=== PATIENT | female | born 1960 | race Caucasian/White ===

== ENCOUNTER 2022-10-30 08:59 | Outpatient (OUT) | payer OTHER, SELFPAY ==
--- NOTE | 2022-10-30 09:45 | PM.CN ---
Consult Note: HPI Data of Consult Patient: known to practice within the last 3 years Consult date: 10/30/22 Requesting Physician: MEGA HELLER NP Primary Care Provider: [facility] Consult Narrative Narrative: Patient was here for f/u of low back pain. MBB procedure was denied d/t not having PT previously. She has since gone to at least 6 weeks of PT without relief of pain. She would like to go ahead with dx MBB and ultimately RFA. Pain is left lumbar without radiculopathy . She was changed to zanaflex at last visit which has helped. She states she was having hallucinations from tramadol. We can switch to norco. She has had norco in the past with relief. Medication regimen assists patient with being better able to perform ADLS. No new sensorimotor or bowel or bladder issues. She is on 02 by [facility]. She also has what appear to be venous stasis ulcers to bilat shins. We discussed getting ABIs done . She will check with her PCP to get this done. cc:: CC: MEGA HELLER NP Review of Systems ROS Status of ROS 10 or more systems reviewed and unremarkable except as noted in history and below Musculoskeletal Reports: back pain Exam Constitutional Documenting provider has reviewed patient's vital signs: yes Common normals: no apparent distress, oriented x3, healthy appearing, alert and well nourished Nutritional appearance: obese Orientation/consciousness: Yes awake, Yes oriented to person, Yes oriented to place and Yes oriented to time HENAZ Common normals: normocephalic and moist oral mucous membranes Respiratory Common normals: normal respiratory effort, no retractions and no use of accessory muscles Effort & inspection: able to speak in complete sentences and symmetric chest movement Other: on 02 by [facility] Back & Pelvis Lumbar spine/lower back: normal to inspection, ROM limited, pain with ROM, paraspinal muscle tenderness and paraspinal muscle spasm Other: positive facet load left muscle strength 3/5 left, 4/5 right LE with intact sensation venous stasis ulcers to bilat shins without drainage or signs of infection Assessment and Plan Assessment and Plan (1) Muscle spasm: (2) Lumbar spondylosis: Plan dx MBB left L4/5, L5/S1 under fluoroscopy with ultimate progression to thermal RFA stop tramadol start norco narcan rx
== END 2022-10-30 09:00 | disposition home or self-care (01) ==
LOC: PM 09:00
PROVIDERS: Visit Provider Nurse Practitioner
DX: M62.838 Other muscle spasm (principal); M47.816 Spondylosis without myelopathy or radiculopathy, lumbar region
CPT/HCPCS: G0463

== ENCOUNTER 2022-12-30 07:29 | Day surgery (SDC) | payer OTHER, SELFPAY ==
[2022-12-30 07:59] VITALS: BP 168/89; PULSE 85; RESP 16; TEMP 36.3; O2SAT 99
[2022-12-30 08:04] LABS: Glucometer 60 mg/dL (74-106)
[2022-12-30 08:05] LABS: Glucometer 56 mg/dL (74-106)
[2022-12-30 09:03] VITALS: RESP 20
[2022-12-30] MEDS: BUPIVACAINE HCL 0.25% PF 25 MG/10 ML VIAL 4 ML INJ (09:05)
[2022-12-30 09:07] VITALS: PULSE 72; PULSE 74; O2SAT 96; O2SAT 97
[2022-12-30 09:10] VITALS: BP 136/66; BP 138/68
--- NOTE | 2022-12-30 09:11 | P.ON_ITS ---
Date of procedure: 12/30/22 Pre-op diagnosis: Lumbar Spondylosis Post-op diagnosis: same as pre-op Procedure: Left Lumbar 4/5, 5/S1 medial branch block Under fluoroscopic guidance Solution injected: 2millilitersMarcaine 0.25% Anesthesia :none Immediate complications none Time out process compliant After informed consent obtained from the patient placed in the Prone proposition . area was prepped and draped in a sterile fashion using Cloraprep .25 gauge spinal needle inserted over each of the above mentioned target areas . [place] were directed towards the target under fluoroscopic guidance . after encountering each of the targets , no indication of intravascular intraneuronal or intrathecal needle tip placement. Then 0 .5 to 1 Milliliter was injected at each level. [place] removed postoperatively. patient transferred to recovery in stable condition to be discharged home after meeting criteria Anesthesia: Local Surgeon: Ang Murphy Condition: stable
== END 2022-12-30 09:16 | disposition home or self-care (01) ==
PROVIDERS: Visit Provider Anesthesiology Pain Medicine
DX: M47.816 Spondylosis without myelopathy or radiculopathy, lumbar region (principal)
CPT/HCPCS: 36415; 36416; 64493; 64494; 82948

== ENCOUNTER 2023-01-21 09:48 | Outpatient (OUT) | payer OTHER, SELFPAY ==
--- NOTE | 2023-01-21 10:09 | P.CN_ITS ---
Consult Note: HPI Data of Consult Patient: known to practice within the last 3 years Requesting Physician: Rachana London NP Primary Care Provider: [facility] Consult Narrative Reason for consult: f/u Narrative: Kelsea villatoro pleasant 62 year old female presents for evaluation and management of chronic low back pain. Recently underwent Left Lumbar 4/5, 5/S1 medial branch block with 0% pain relief and functional improvement Today rating pain 7/10 in low back and radiating down left leg. Patient notices increase in pain with walking and activity. Patient does get numbness tingling and weakness in left leg. Has been evaluated by NS and deemed non surgical, following with ortho currently as well. Patient would like to discuss additional options today. PT completed without benefit. cc:: CC: Rachana London NP Review of Systems ROS Status of ROS 10 or more systems reviewed and unremarkable except as noted in history and below Musculoskeletal Reports: back pain and joint pain (left SIJ) Meds Home Medications and Allergies Home Medications Medication Instructions Recorded Confirmed Type allopurinol 300 mg tablet 300 mg PO DAILY 10/30/22 12/30/22 History amlodipine 5 mg tablet (Norvasc) 5 mg PO DAILY 10/30/22 12/30/22 History benzonatate 100 mg capsule 100 mg PO TID 10/30/22 12/30/22 History brexpiprazole 3 mg tablet (Rexulti) 3 mg PO DAILY 10/30/22 12/30/22 History budesonide-formoterol HFA 160 2 inh inhalation BID 10/30/22 12/30/22 History mcg-4.5 mcg/actuation aerosol inhaler (Symbicort) carvedilol 25 mg tablet 25 mg PO BID 10/30/22 12/30/22 History cholecalciferol (vitamin D3) 50 2,000 unit PO BID 10/30/22 12/30/22 History mcg (2,000 unit) capsule colestipol 1 gram tablet 1 g PO BID 10/30/22 12/30/22 History dicyclomine 20 mg tablet 20 mg PO QID 10/30/22 12/30/22 History doxycycline hyclate 100 mg capsule 100 mg PO DAILY 10/30/22 12/30/22 History duloxetine 60 mg capsule,delayed 60 mg PO DAILY 10/30/22 12/30/22 History release (Cymbalta) furosemide 40 mg tablet 40 mg PO DAILY 10/30/22 12/30/22 History gabapentin 300 mg capsule 300 mg PO TID 10/30/22 12/30/22 History (Neurontin) hydrocodone 5 mg-acetaminophen 325 1 tab PO TID 10/30/22 12/30/22 History mg tablet hydroxyzine HCl 10 mg tablet 10 mg PO Q8H 10/30/22 12/30/22 History insulin glargine 100 unit/mL (3 20 unit subcut DAILY 10/30/22 12/30/22 History mL) subcutaneous pen (Lantus Solostar U-100 Insulin) ipratropium 0.5 mg-albuterol 3 mg 3 ml inhalation Q6H 10/30/22 12/30/22 History (2.5 mg base)/3 mL nebulization soln ipratropium bromide 0.02 % 0.5 mg inhalation Q6H PRN 10/30/22 12/30/22 History solution for inhalation shortness of breath or wheezing levomilnacipran 120 mg capsule,24 120 mg PO DAILY 10/30/22 12/30/22 History hr,extended release (Fetzima) levothyroxine 50 mcg capsule 50 mcg PO DAILY 10/30/22 12/30/22 History magnesium oxide 500 mg tablet 500 mg PO DAILY 10/30/22 12/30/22 History mirtazapine 30 mg tablet 30 mg PO DAILY 10/30/22 12/30/22 History mirtazapine 30 mg tablet (Remeron) 30 mg PO DAILY 10/30/22 12/30/22 History montelukast 10 mg tablet 10 mg PO DAILY 10/30/22 12/30/22 History (Singulair) omeprazole 40 mg capsule,delayed 40 mg PO DAILY 10/30/22 12/30/22 History release oxybutynin chloride 10 mg 10 mg PO DAILY 10/30/22 12/30/22 History tablet,extended release 24 hr sucralfate 1 gram tablet 1 g PO TID 10/30/22 12/30/22 History theophylline 200 mg 200 mg PO DAILY 10/30/22 12/30/22 History capsule,extended release 24 hr (Nishant-24) tizanidine 4 mg capsule (Zanaflex) 4 mg PO BID PRN muscle spasticity 10/30/22 12/30/22 History hydrocodone 5 mg-acetaminophen 325 1 tab PO TID PRN pain #90 tabs 12/03/22 12/30/22 Rx mg tablet Allergies Allergy/AdvReac Type Severity Reaction Status Date / Time honey Allergy Severe Anaphylaxis Verified 12/30/22 08:12 codeine Allergy Mild itching Verified 12/30/22 08:12 morphine AdvReac Vomiting Verified 12/30/22 08:12 Exam Constitutional Documenting provider has reviewed patient's vital signs: yes Common normals: no apparent distress, oriented x3, healthy appearing, alert and well nourished General appearance: cooperative Nutritional appearance: obese HENMT Common normals: normocephalic, hearing grossly normal bilaterally and moist oral mucous membranes Head and scalp: normocephalic Eye Common normals: PERRL Pupil: PERRL Neck & C-Spine Common normals: full ROM General: normal visual inspection Chest Common normals: inspection of chest normal Respiratory Common normals: normal respiratory effort, no retractions and no use of accessory muscles Other: chronic O2 Back & Pelvis Lumbar spine/lower back: ROM limited, pain with ROM and straight leg raise positive left Sacroiliac joints: SI joint(s) abnormal (left SIJ tender over PSIS, positive gabi, thigh thrust and gaenslens. ) Other: intermittent numbness tingling and weakness to left leg chronic low back pain pain radiates down anterior and posterior thigh into calf and down to foot positive facet loading bilaterally Extremity Common normals: normal to inspection Neuro Common normals: oriented x3, CN's II-XII intact bilaterally, moves all extremities, no focal motor deficits, no sensory deficits noted and deep tendon reflexes 2+ bilaterally Sensorium/orientation: alert Gait (neuro): antalgic and assistive device used walker Motor exam: no movement abnormalities noted and strength abnormal (4/5 in BLE) Psych Common normals: mental status grossly normal, thought process normal, cooperative, affect normal, speech normal and activity/motor behavior normal Speech: normal speech Thought process: normal thought process Results Additional Findings Additional findings: I have checked an [place]AR[place] report on this patient today and there are no aber rancies noted in the prescribing history.?? A drug screen was completed and reviewed within the last year, and if there has not been a drug screen completed we ordered one today to monitor higher risk, state monitored pain medication use. As part of providing excellent, safe, comprehensive care, the following was completed at our patient's visit: 1. A medication reconciliation and review to ensure accurate knowledge of current/active medications, including asking our patients to inform us about any [id number] medications or herbal remedies/nutritional supplements/alternative remedies. 2. A review to specifically ensure our patients have had annual screening for: elevated body mass index (BMI), tobacco use, screening for depression, and screening for unhealthy alcohol use. When screening is concerning, patients are provided with education and the specific recommendation to discuss the concerning health issue and treatment options with their primary care provider. The patient has had over 3 months of moderate to severe low back pain with functional impairment and inadequate response to conservative care including NSAIDS (unless there are contraindication such as concurrent blood thinners), multiple oral or topical pain medications, and home exercise program/physical therapy.? Patient has completed >6 weeks of guided home exercise program and/or formal physical therapy program without relief of their symptoms.? We discussed the risks and benefits of the procedure with the patient, and we are NOT planning on using sedation as outlined in the guidelines from Medicare unless there is a documented reason that sedation would be strongly recommended.?? Assessment and Plan Assessment and Plan (1) Lumbar stenosis: (2) Lumbar radiculopathy: (3) Muscle spasm: (4) Chronic left sacroiliac pain: Plan MRI reviewed plan for L 3-4 ANNE under fluoroscopy for radiculopathy and lumbar stenosis increase gabapentin to 1200mg total daily dose for two weeks, if needs to further increase and not having side effects can increase to 1500mg total daily dose. call if side effects or questions and when a refill is needed continue other medications f/u after injection
== END 2023-01-21 09:49 | disposition home or self-care (01) ==
LOC: PM 09:49
PROVIDERS: Visit Provider Nurse Practitioner
DX: M48.061 Spinal stenosis, lumbar region without neurogenic claudication (principal); M62.838 Other muscle spasm; M53.3 Sacrococcygeal disorders, not elsewhere classified; M54.16 Radiculopathy, lumbar region
CPT/HCPCS: G0463

== ENCOUNTER 2023-02-17 08:54 | Day surgery (SDC) | payer OTHER, SELFPAY ==
[2023-02-17 09:18] LABS: Glucometer 76 mg/dL (74-106)
[2023-02-17 09:27] VITALS: BP 128/76; PULSE 78; RESP 14; TEMP 36.3; O2SAT 99
[2023-02-17 10:05] VITALS: BP 134/76; PULSE 76; RESP 20; O2SAT 94
[2023-02-17] MEDS: 0.9 % SODIUM CHLORIDE 10 ML SYRINGE - SALINE FLUSH 2 ML INJ (10:06)
[2023-02-17] MEDS: LIDOCAINE HCL 2% PF 100 MG/5 ML VIAL 3 ML INJ (10:06)
[2023-02-17] MEDS: IOHEXOL 300 MG/ML - 50 ML BTL 6 MG INJ (10:06)
[2023-02-17] MEDS: BUPIVACAINE HCL 0.25% PF 25 MG/10 ML VIAL 2 ML INJ (10:06)
[2023-02-17] MEDS: METHYLPREDNISOLONE ACETATE 80 MG/ML VIAL INJ (10:06)
[2023-02-17 10:07] VITALS: BP 157/70; PULSE 58; RESP 20; O2SAT 96
--- NOTE | 2023-02-17 10:33 | P.ON_ITS ---
Date of procedure: 02/17/23 Pre-op diagnosis: Lumbar stenosis Post-op diagnosis: same as pre-op Procedure: Lumbar 3/4 Epidural Steroid Injection Under fluoroscopic guidance Immediate complications none Solution used for injection: Marcaine 0.25% 2mL, 2cc Normal saline, Depo-Medrol 80mg Omnipaque 3 mL Anesthesia local 2% lidocaine up to 4ml Timeout process compliant After informed consent obtained. Patient brought to the procedure room placed in the prone position. Skin overlying the area was prepped and draped in a sterile fashion using betadine. 25 gauge needle used to raise a skin wheel with local anesthetic over the target area identified under fluoroscopy. A 17 gauge Touhy needle Was inserted over the anesthetized area and directed towards the inter- space under fluoroscopic guidance. Epidural space was identified with loss of resistance technique to air. Needle Tip placement confirmed with injection of contrast solution. Steroid solution was then injected. Anesthesia: Local Surgeon: Ang Murphy Condition: stable
== END 2023-02-17 10:13 | disposition home or self-care (01) ==
LOC: SURGOUT 08:54
PROVIDERS: Visit Provider Anesthesiology Pain Medicine
DX: M48.061 Spinal stenosis, lumbar region without neurogenic claudication (principal)
CPT/HCPCS: 36415; 62323; 82948; J1040; Q9967

== ENCOUNTER 2023-03-04 09:08 | Outpatient (OUT) | payer OTHER, SELFPAY ==
--- NOTE | 2023-03-04 09:26 | PM.CN ---
Consult Note: HPI Data of Consult Patient: known to practice within the last 3 years Requesting Physician: Rachana London NP Primary Care Provider: [facility] Consult Narrative Reason for consult: f/u Narrative: Kelsea villatoro pleasant 62 year old female presents for evaluation and management of chronic low back pain. Patient notices increase in pain with walking and activity. Patient does get numbness tingling and weakness in bilateral legs, pain relieved with rest and leaning forward. Has been evaluated by NS and deemed non surgical, following with ortho currently as well. Patient would like to discuss additional options today. PT completed without benefit. Pain today 6.5/10 in low back with numbness tingling and weakness in bilateral legs. cc:: CC: Rachana London NP Review of Systems ROS Status of ROS 10 or more systems reviewed and unremarkable except as noted in history and below Musculoskeletal Reports: back pain Meds Home Medications and Allergies Home Medications Medication Instructions Recorded Confirmed Type allopurinol 300 mg tablet 300 mg PO DAILY 10/30/22 02/17/23 History amlodipine 5 mg tablet (Norvasc) 5 mg PO DAILY 10/30/22 02/17/23 History benzonatate 100 mg capsule 100 mg PO TID 10/30/22 02/17/23 History brexpiprazole 3 mg tablet (Rexulti) 3 mg PO DAILY 10/30/22 02/17/23 History budesonide-formoterol HFA 160 2 inh inhalation BID 10/30/22 02/17/23 History mcg-4.5 mcg/actuation aerosol inhaler (Symbicort) carvedilol 25 mg tablet 25 mg PO BID 10/30/22 02/17/23 History cholecalciferol (vitamin D3) 50 2,000 unit PO BID 10/30/22 02/17/23 History mcg (2,000 unit) capsule colestipol 1 gram tablet 1 g PO BID 10/30/22 02/17/23 History dicyclomine 20 mg tablet 20 mg PO QID 10/30/22 02/17/23 History doxycycline hyclate 100 mg capsule 100 mg PO DAILY 10/30/22 02/17/23 History duloxetine 60 mg capsule,delayed 60 mg PO DAILY 10/30/22 02/17/23 History release (Cymbalta) furosemide 40 mg tablet 40 mg PO DAILY 10/30/22 02/17/23 History hydrocodone 5 mg-acetaminophen 325 1 tab PO TID 10/30/22 02/17/23 History mg tablet hydroxyzine HCl 10 mg tablet 10 mg PO Q8H 10/30/22 02/17/23 History insulin glargine 100 unit/mL (3 20 unit subcut DAILY 10/30/22 02/17/23 History mL) subcutaneous pen (Lantus Solostar U-100 Insulin) ipratropium 0.5 mg-albuterol 3 mg 3 ml inhalation Q6H 10/30/22 02/17/23 History (2.5 mg base)/3 mL nebulization soln ipratropium bromide 0.02 % 0.5 mg inhalation Q6H PRN 10/30/22 02/17/23 History solution for inhalation shortness of breath or wheezing levomilnacipran 120 mg capsule,24 120 mg PO DAILY 10/30/22 02/17/23 History hr,extended release (Fetzima) levothyroxine 50 mcg capsule 50 mcg PO DAILY 10/30/22 02/17/23 History magnesium oxide 500 mg tablet 500 mg PO DAILY 10/30/22 02/17/23 History mirtazapine 30 mg tablet 30 mg PO DAILY 10/30/22 02/17/23 History mirtazapine 30 mg tablet (Remeron) 30 mg PO DAILY 10/30/22 02/17/23 History montelukast 10 mg tablet 10 mg PO DAILY 10/30/22 02/17/23 History (Singulair) omeprazole 40 mg capsule,delayed 40 mg PO DAILY 10/30/22 02/17/23 History release oxybutynin chloride 10 mg 10 mg PO DAILY 10/30/22 02/17/23 History tablet,extended release 24 hr sucralfate 1 gram tablet 1 g PO TID 10/30/22 02/17/23 History theophylline 200 mg 200 mg PO DAILY 10/30/22 02/17/23 History capsule,extended release 24 hr (Nishant-24) tizanidine 4 mg capsule (Zanaflex) 4 mg PO BID PRN muscle spasticity 10/30/22 02/17/23 History gabapentin 300 mg capsule 900 mg PO .HS 02/10/23 02/17/23 History gabapentin 600 mg tablet 600 mg PO DAILY 02/10/23 02/17/23 History gabapentin 600 mg tablet 600 mg PO TID #90 tabs 03/04/23 Rx hydrocodone 5 mg-acetaminophen 325 1 tab PO TID PRN pain #90 tabs 03/04/23 Rx mg tablet Allergies Allergy/AdvReac Type Severity Reaction Status Date / Time honey Allergy Severe Anaphylaxis Verified 12/30/22 08:12 codeine Allergy Mild itching Verified 12/30/22 08:12 morphine AdvReac Vomiting Verified 12/30/22 08:12 Exam Constitutional Documenting provider has reviewed patient's vital signs: yes Common normals: no apparent distress, oriented x3, healthy appearing, alert and well nourished General appearance: cooperative Nutritional appearance: obese HENMT Common normals: normocephalic, hearing grossly normal bilaterally and moist oral mucous membranes Head and scalp: normocephalic Eye Common normals: PERRL Pupil: PERRL Neck & C-Spine Common normals: full ROM General: normal visual inspection Chest Common normals: inspection of chest normal Respiratory Common normals: normal respiratory effort, no retractions and no use of accessory muscles Other: chronic O2 Back & Pelvis Lumbar spine/lower back: ROM limited, pain with ROM and straight leg raise negative bilaterally Sacroiliac joints: SI joint(s) abnormal (left SIJ tender over PSIS, positive gabi, thigh thrust and gaenslens. ) Other: intermittent numbness tingling and weakness to bilateral chronic low back pain positive facet loading bilaterally Extremity Common normals: normal to inspection Neuro Common normals: oriented x3, CN's II-XII intact bilaterally, moves all extremities, no focal motor deficits, no sensory deficits noted and deep tendon reflexes 2+ bilaterally Sensorium/orientation: alert Gait (neuro): antalgic and assistive device used walker Motor exam: no movement abnormalities noted and strength abnormal (4/5 BLE) Psych Common normals: mental status grossly normal, thought process normal, cooperative, affect normal, speech normal and activity/motor behavior normal Speech: normal speech Thought process: normal thought process Results Additional Findings Additional findings: I have checked an [place] report on this patient today and there are no aberrancies noted in the prescribing history.?? A drug screen was completed and reviewed within the last year, and if there has not been a drug screen completed we ordered one today to monitor higher risk, state monitored pain medication use. As part of providing excellent, safe, comprehensive care, the following was completed at our patient's visit: 1. A medication reconciliation and review to ensure accurate knowledge of current/active medications, including asking our patients to inform us about any [id number] medications or herbal remedies/nutritional supplements/alternative remedies. 2. A review to specifically ensure our patients have had annual screening for: elevated body mass index (BMI), tobacco use, screening for depression, and screening for unhealthy alcohol use. When screening is concerning, patients are provided with education and the specific recommendation to discuss the concerning health issue and treatment options with their primary care provider. Assessment and Plan Assessment and Plan (1) Lumbar stenosis: (2) Lumbar radiculopathy: (3) Muscle spasm: (4) Chronic left sacroiliac pain: (5) Lumbar stenosis with neurogenic claudication: Assessment and Plan: patient deemed non surgical Plan increase gabapentin to 600mg TID continue other medications EMG/NCV case reviewed with Dr Murphy, consider higher up lumbar facet blocks and diagnostic left superior gluteal nerve block in the future f/u after EMG
== END 2023-03-04 09:09 | disposition home or self-care (01) ==
PROVIDERS: Visit Provider Nurse Practitioner
DX: M48.062 Spinal stenosis, lumbar region with neurogenic claudication (principal); M54.16 Radiculopathy, lumbar region; M62.838 Other muscle spasm; M53.3 Sacrococcygeal disorders, not elsewhere classified
CPT/HCPCS: G0463

== ENCOUNTER 2023-03-17 13:28 | Outpatient (OUT) | payer OTHER, SELFPAY ==
--- NOTE | 2023-03-17 | CONS_ITS ---
CONSULTATION DATE: ??03/17/2023 TO:? [facility] HISTORY:? Patient returns today complaining of pain on left hip area, left buttock area.? Reports that it is 8/10; sharp, burning pain, increased with activities such as standing, walking, performing transitioning maneuvers.? She denied any change in bowel and bladder habits or new sensorimotor change in the lower extremities. CURRENT MEDICATION:? Includes gabapentin 600 mg t.i.d., Stuart 500 mg t.i.d. which she reports does improve her pain symptoms, quality of life and sleep pattern, and denies any side effects.?? She also is on Zanaflex 4 mg at h.s. EXAM:? Notable for patient having no clinical radiculopathy or myelopathy involving the lower extremities.? Patient had dysesthesia and hyperesthesia along the distribution of the left superior gluteal nerve and myofascial spasm of the left gluteus medius muscle.? IMPRESSION:? 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 RECOMMENDATIONS:? I recommend she increase her Neurontin to 900 mg in the morning, 600 in the afternoon and 900 mg at h.s.? Increase the Zanaflex 4 mg, one quarter pill to one half pill in the morning and one pill at h.s.? We will obtain urine toxicology screen at today?s visit, and proceed with a diagnostic left superior gluteal nerve injection under fluoroscopic guidance. As part of providing excellent, safe, comprehensive care, the following was completed at our patient's visit: 1. A medication reconciliation and review to ensure accurate knowledge of current/active medications, including asking our patients to inform us about any [id number] medications or herbal remedies/nutritional supplements/alternative remedies. 2. A review to specifically ensure our patients have had annual screening for: elevated body mass index (BMI, see intake chart for exact total), tobacco use, screening for depression, and screening for unhealthy alcohol use.? When screening is concerning, patients are provided with education and the specific recommendation to discuss the concerning health issue and treatment options with their primary care provider. EILEEN
== END 2023-03-17 13:29 | disposition home or self-care (01) ==
LOC: PM 13:28
PROVIDERS: Visit Provider Anesthesiology Pain Medicine
DX: G57.82 Other specified mononeuropathies of left lower limb (principal); M79.18 Myalgia, other site
CPT/HCPCS: G0463

== ENCOUNTER 2023-04-21 08:42 | Day surgery (SDC) | payer OTHER, SELFPAY ==
[2023-04-21 09:12] VITALS: BP 151/85; PULSE 88; RESP 14; TEMP 36.2; O2SAT 98
[2023-04-21 09:18] LABS: Glucometer 272 mg/dL (74-106)
[2023-04-21 10:09] VITALS: RESP 20
[2023-04-21 10:12] VITALS: BP 121/78; PULSE 79; O2SAT 79; O2SAT 93
[2023-04-21] MEDS: BUPIVACAINE HCL 0.25% PF 25 MG/10 ML VIAL 4 ML INJ (10:13)
[2023-04-21 10:14] VITALS: BP 145/92; PULSE 92
--- NOTE | 2023-04-21 10:25 | PC.NURSE ---
SpO2 99% on 4L of her own portable O2 before leaving D/C area.
--- NOTE | 2023-04-21 10:29 | PC.NURSE ---
When patient was being transferred to Operating Room she informed Gregory gaona that she did not need her Oxygen to be connected while doing procedure Pt transported to Operating room.
--- NOTE | 2023-04-21 10:49 | W.PM.PROCNOT ---
Date of procedure: 04/21/23 Pre-op diagnosis: Left Superior Gluteal Neuritis Post-op diagnosis: same as pre-op Procedure: Left Superior gluteal nerve block, diagnostic Performed under fluoroscopic guidance Immediate complications none Anesthesia: none Solution used for injection: In each syringe, 2 milliliters 0.25% Marcaine 2.5 mL is used for injection for each side Time out process compliant After informed consent obtained patient was brought to the procedure room placed in the prone position skin overlying the area was prepped and draped in a sterile fashion using betadine. 25 gauge spinal needle Insert over each of the target areas identified in fluoroscopy corresponding needles were advanced Under fluoroscopic guidance until the target/targets encountered, no indication of intravascular or Intraneuronal needle tip placement. Solution injected.needles removed post procedurally. patient transferred to recovery room in stable condition to be discharged home after meeting criteria Anesthesia: Local Surgeon: Ang Murphy
== END 2023-04-21 10:20 | disposition home or self-care (01) ==
LOC: SURGOUT 08:42
PROVIDERS: Visit Provider Anesthesiology Pain Medicine
DX: G58.8 Other specified mononeuropathies (principal)
CPT/HCPCS: 36415; 64450; 82948; J0665

== ENCOUNTER 2023-05-05 11:31 | Outpatient (OUT) | payer OTHER, SELFPAY ==
--- NOTE | 2023-05-05 | CONS_ITS ---
CONSULTATION DATE: 05/05/2023 TO: Dr. Tyson at [facility] in [place] CHIEF COMPLAINT: Includes left sided buttock pain, hip pain. HISTORY: She reports her pain is rated between 6-7/10, sharp in character, increased with activities such as standing, walking and performing transitioning maneuvers. She feels most comfortable in the semi-recumbent position. Denies any change in bowel and bladder habits or new sensorimotor changes in the lower extremities. EXAMINATION: Notable for patient having dysesthesia and hypoesthesia along the distribution of the left superior gluteal nerve. She has no clinical signs consistent with radiculopathy or myelopathy involving the lower extremities. She had nothing to suggest facet joint related pain clinically on today?s visit and she had significant myofascial spasm of the left gluteus medius muscle on today?s visit, with dysesthesia and hypoesthesia overlying the distribution of the left superior gluteal nerve. IMPRESSION: Our impression is patient has chronic pain secondary to neuritis of the left superior gluteal nerve, accompanied by myofascial spasm of the left gluteus medius. She has undergone a diagnostic left superior gluteal nerve injection under fluoroscopic guidance. She reports she was improved by at least 80% starting in the immediate post procedural period, lasting for at least 5-6 hours with recurrence of pain back to her baseline. RECOMMENDATIONS: I have recommended that she consider proceeding with a rhizotomy using radiofrequency ablation of the left superior gluteal nerve under fluoroscopic guidance. I have asked her to continue with her current regimen consisting of gabapentin. She currently takes 900 mg in the morning, 600 mg in the evening, and 900 mg at night. She is also using [place] 5 mg t.i.d. and Zanaflex 4 mg at h.s. She reports these medicines do improve her quality of life, level of functioning and sleep pattern, and she denies any side effects with the use of the same. As part of providing excellent, safe, comprehensive care, the following was completed at our patient's visit: 1. A medication reconciliation and review to ensure accurate knowledge of current/active medications, including asking our patients to inform us about any [id number] medications or herbal remedies/nutritional supplements/alternative remedies. 2. A review to specifically ensure our patients have had annual screening for: elevated body mass index (BMI, see intake chart for exact total), tobacco use, screening for depression, and screening for unhealthy alcohol use. When screening is concerning, patients are provided with education and the specific recommendation to discuss the concerning health issue and treatment options with their primary care provider. EILEEN
--- OUTSIDE RECORDS SUMMARY | 2023-05-05 11:36 | XMS_ITS | CCD ---
Author Name Unknown Address [address] [place] [address] Organization [facility] Care Team Providers [facility] Assistant Name Role Phone Giovanni Tyler Unavailable Domenico Whitmore Unavailable Nicko Mckeon Unavailable Adore Barroso Unavailable Josafat Nunes Unavailable DO Giovanni Tyler Primary Care Provider [phone] MD Roxane Bills Attending Provider [phone] DO Giovanni Tyler Attending Provider [phone] DO Mohan Groves Referring Provider DO Peri Tyson Attending Provider Peri Tyson Unavailable DO Giovanni Tyler Primary Care Provider DO Truman Tylerin Radha Primary Care Provider DO Criselda Tysonria Luis Attending Provider [phone] MD Marcus Cummins Attending Provider DO Peri Tyson Primary Care Provider DO Svetlana Garcia Referring Provider [phone] DO Giovanni Tyler Primary Care Provider [phone] DO Cecilia Tysona Luis Attending Provider MD Roxane Bills Attending Provider [phone] DO Mohan Groves Referring Provider [phone] Marbella, DO Peri A Primary Care Provider Marbella DO Peri A Attending Provider MD Roxane Bills Attending Provider [phone] DO Mohan Groves Referring Provider Faraz Lulú Unavailable VIJAY ., DR SANAM Melchor Admitting Unavailable VIJAY ., DR SANAM Melchor Attending Unavailable MIS, DR HOUSTON Primary Care Unavailable MACIEL ., JAIME Consulting Unavailable GUY ., NARENDRANATH Consulting Lynn vailable VIJAY ., DR SANAM Melchor Admitting Unavailable VIJAY ., DR SANAM Melchor Attending Unavailable MIS, DR HOUSTON Primary Care Unavailable LINARES ., DR SANAM Melchor Consulting Unavailable MACIEL ., JAIME Consulting Unavailable Tyson, DO Peri A Primary Care Provider Marbella DO Peri A Attending Provider [phone] MD Domenico Whtimore Attending Provider DO Mohan Groves Referring Provider LUCI Galicia Attending Provider MD Jeannie Aguilar Attending Provider [phone] Marbella DO Peri A Primary Care Provider NON STAFF Attending Provider Unavailable Tyson, DO Peri A Attending Provider [phone] Marbella, DO Peri A Primary Care Provider MD Ang Murphy Attending Provider Unavailable DO Jez Josue A Attending Provider Marbella DO Peri A Primary Care Provider [phone] MD Nik Pineda Attending Provider Patsy Harvey Unavailable MD Roxane Bills Attending Provider DO Brenden Groves Referring Provider Tyson, DO Peri A Attending Provider Tyson, DO Peri A Primary Care Provider [phone] MD Nik Pineda Attending Provider Tyson, DO Peri A Attending Provider [phone] MD Roxane Bills Attending Provider [phone] DO Brenden Groves Referring Provider [phone] RACHEL TSAI Attending Unavailable Tyson, Peri A Primary Care Unavailable Lakvirginiemitiara, Narendranath Attending Unava ilable Lakvirginiemimarlenay, Narendranath Admitting Unava ilable Tyson, Peri A Attending Unavailable Tyson, Peri A Admitting Unavailable Tyson, Peri A Primary Care Unavailable Tyson, Peri A Primary Care Unavailable Clayton Josuein Luis Admitting Unavailable Jez Josue Attending Unavailable Tyson, Peri A Primary Care Unavailable Truong Ward Admitting Unavailab le Truong Ward Attending Unavailab le Tyson, Peri A Primary Care Unavailable Nik Pineda Admitting Unavailable Nik Pineda Attending Unavailable Tyson, Peri A Primary Care Unavailable CopseyKeia Attending Unavailable Copjaret, Erica Admitting Unavailable Roxane Bills Attending Unavailable Brenden Groves Referring Unavailab le Sanju, Roxane Admitting Unavailable Tyson, Peri A Primary Care Unavailable Tyson, Peri A Primary Care Unavailable Tyson, Peri A Attending Unavailable Tyson, Peri A Admitting Unavailable Tyson, Peri A Primary Care Unavailable Sanju, Roxane Admitting Unavailable Sanju, Roxane Attending Unavailable Tyson, Peri A Primary Care Unavailable Tyson, Peri A Attending Unavailable Tyson, Peri A Admitting Unavailable Tyson, Peri A Attending Unavailable Tyson, Peri A Admitting Unavailable Tyson, Peri A Primary Care Unavailable Tyson, Peri A Attending Unavailable Tyson, Peri A Admitting Unavailable Tyson, Peri A Primary Care Unavailable Tyson, Peri A Primary Care Unavailable Domenico Wihtmore Attending Unavailable Domenico Whitmore Admitting Unavailable Tyson, Peri A Primary Care Unavailable Nik Pineda Admitting Unavailable Nik Pineda Attending Unavailable Peri Tyson Primary Care Unavailable Jeannie Aguilar Attending Unavailable Jeannie Aguilar Admitting Unavailable Allergies Allergy Classification Reported Allergen(s) Allergy Type Date of Onset Reaction(s) Facility (20 sources) Codeine Drug Allergy 10-24-19 22 itching, Rash [facility] (20 sources) Honey Propensity to adverse reactions 10-24-19 22 anaphylaxis [facility] (20 sources) Morphine Drug Allergy 10-24-19 22 Unknown, Gastrointestinal Upset [facility] (1 source) Codeine Drug Allergy 11-15-19 17 [facility] (1 source) Honey Drug allergy (disorder) 11-15-19 17 [facility] (1 source) Morphine Drug Allergy 11-15-19 17 [facility] (20 sources) traMADol Drug Allergy 12-19-19 23 hallucinations, Unknown Reaction, Hallucinating [facility] (1 source) Morphine Drug Allergy Unknown [facility] Other (1 source) Codeine Drug Allergy 04-28-19 [facility] (1 source) Honey Drug allergy (disorder) 04-28-19 [facility] (1 source) Morphine Drug Allergy 04-28-19 [facility] (1 source) traMADol Drug Allergy 04-28-19 [facility] Medications Current Medications Medication Drug Class(es) Dates Sig (Normalized) Sig (Original) acetaminophen 325 mg / HYDROcodone bitartrate 5 mg oral tablet (20 sources) Opioid Agonist Start: 11-04-2021 take 0.5-1 tablets by mouth once daily as needed Moultrie 5-325 MG 1/2 to 1 tablet as needed Orally daily for 30 days Oct, Active Start: 11-01-2021 take 0.5-1 tablets b y mouth once daily as needed Moultrie 5-325 MG 1/2 to 1 tablet as needed Orally daily for 30 days Oct, Active Start: 10-02-2021 take 0.5-1 tablets b y mouth once daily as needed Moultrie 5-325 MG 1/2 to 1 tablet as needed Orally daily for 30 days Sep, Active Start: 09-02-2021 take 0.5-1 tablets b y mouth once daily as needed Moultrie 5-325 MG 1/2 to 1 tablet as needed Orally daily for 30 days August, Active Start: 07-03-2021 take 1 tablet by jocelin twice daily as needed Moultrie 5-325 MG 1 tablet as needed Orally twice a day for 30 days Jun, Active Start: 06-05-2021 take 1 tablet by jocelin twice daily as needed Moultrie 5-325 MG 1 tablet as needed Orally twice a day for 30 days May, Active Start: 04-30-2021 take 1 tablet by jocelin twice daily as needed Moultrie 5-325 MG 1 tablet as needed Orally twice a day for 30 days Apr, Active Start: 04-29-2021 take 1 tablet by jocelin twice daily as needed Moultrie 5-325 MG 1 tablet as needed Orally twice a day for 30 days Apr, Active Start: 03-25-2021 take 1 tablet by jocelin twice daily as needed Moultrie 5-325 MG 1 tablet as needed Orally twice a day for 30 days Mar, Active Start: 01-24-2018 HYDROcodone-Ac etaminophen 5-325 MG 1 tablet as needed severe pain scale 9-10 Orally BID for 9 days Fill on or after 02/22/2022 Oct, Active Start: 01-24-2018 HYDROcodone-Ac etaminophen 5-325 MG 1 tablet as needed severe pain scale 9-10 Orally BID for 9 days Fill on or after 02/22/2022 Oct, Active Start: 12-16-2016 End: 04-17-2017 take 1 tablet by mouth every six hours Hydrocodone-Acetaminophen Discontinued 1 TAB PO Q6H December 15, 2016 11:00pm April 17, 2017 10:02am take 1 tablet by jocelin twice daily as needed Moultrie 5-325 MG 1 tablet as needed Orally twice a day Active [id number] actuat albuterol 0.09 mg/actuat metered dose inhaler (20 sources) beta2-Adrenergic Agonist Start: 07-29-2021 take 1 puff(s) by inhalation every four hours Albuterol Sulfate (Proair Hfa) 90 mcg/actuation Hfa Aerosol Inhaler Active 1 PUFF INHALATION Q4H July 28, 2021 11:00pm Start: 12-26-2016 End: 04-17-2017 take 2.5 mg by inhalation every three hours Albuterol Sulfate Discontinued 2.5 MG INHALATION Q3H December 25, 2016 11:00pm April 17, 2017 10:07am take 1 puff(s) by in halation every four hours as needed amitriptyline hydrochloride 10 mg oral tablet (20 sources) Tricyclic Antidepressant Start: 07-29-2021 take 10 mg by mouth once daily in the morning Amitriptyline Active 10 MG PO Every morning July 28, 2021 11:00pm amLODIPine 5 mg oral tablet (20 sources) Dihydropyridine Calcium Channel Apple Start: 01-24-2018 take 10 mg by mouth once daily in the morning Amlodipine Active 10 MG PO Every morning January 23, 2018 11:00pm Start: 12-16-2016 End: 12-26-2016 take 1 tablet by mouth at bedtime Amlodipine Discontinued 1 TAB PO Bedtime December 15, 2016 11:00pm December 26, 2016 11:19am take 1 tablet by jocelin th every twenty-four hours amLODIPine Besylate 10 MG 1 tablet Orally Once a day for 90 days Active amoxicillin 500 mg oral tablet (6 sources) Penicillin-class Antibacterial Start: 02-10-2022 take 1 tablet by mouth every eight hours asenapine 5 mg sublingual tablet (20 sources) Atypical Antipsychotic benzonatate 100 mg oral capsule (20 sources) Non-narcotic Antitussive Start: 06-30-2022 take 1 capsule by mouth every eight hours Benzonatate 100 MG 1 capsule as needed Orally Three times a day for 5 days Jun, Active BIPAP Machine (20 sources) BIPAP Machine Ac tive brexpiprazole 2 mg oral tablet (20 sources) Atypical Antipsychotic Start: 01-24-2018 take 1 tablet by mouth once daily in the morning Brexpiprazole (Rexulti) 2 mg Tablet Active 3 MG PO Every morning January 23, 2018 11:00pm Start: 12-16-2016 End: 04-17-2017 take 1 tablet by mouth once daily Brexpiprazole Discontinued 1 TAB PO Daily December 26, 2016 11:47am April 17, 2017 10:06am take 1 tablet by jocelin th once daily Brexpiprazole 3 MG 1 tablet Orally Once a day Active Budesonide-Formoterol (20 sources) Corticosteroid, beta2-Adrenergic Agonist Start: 01-24-2018 take 1 puff(s) by inhalation twice daily Budesonide-Formoterol (Symbicort) 160-4.5 mcg/actuation Hfa Aerosol Inhaler Active 2 PUFF INHALATION Twice daily January 23, 2018 11:00pm Start: 01-24-2018 take 1 puff(s) by in halation twice daily Budesonide-Formoterol (Symbicort) 160-4.5 mcg/actuation Hfa Aerosol Inhaler Active 2 PUFF INHALATION Twice daily January 24, 2018 12:00am Start: 12-16-2016 End: 04-17-2017 take 1 puff(s) by inhalation twice daily Budesonide-Formoterol Discontinued 2 PUFF INHALATION Twice daily 30 December 26, 2016 11:47am April 17, 2017 10:06am take 2 puff(s) by in halation once daily Symbicort 160-4.5 MCG/ACT 2 puffs Inhalation Once a day for 30 days Active take 2 puff(s) by in halation once daily Symbicort 160-4.5 MCG/ACT 2 puffs Inhalation Once a day for 30 days Active carboxymethylcellulose sodiu m 5 mg/ml ophthalmic solution (9 sources) Refresh Tears 0. 5 % INSTILL 1 DROP INTO EACH EYE 3 TIMES A DAY NEEDED 30 DAYS for 30 Active carvedilol 6.25 mg oral tabl et (20 sources) alpha-Adrenergi c Apple, beta-Adrenergic Apple Start: 01-25-20 18 take 25 mg by mouth twice daily Carvedilol Active 25 MG PO Twice daily January 24, 2018 5:40pm Start: 12-19-2016 End: 01-24-2018 take 6.25 mg by mouth twice daily Carvedilol Discontinued 6.25 MG PO Twice daily 60 December 26, 2016 11:47am January 24, 2018 5:41pm Start: 12-16-2016 End: 12-19-2016 take 1 tablet by mouth twice daily Carvedilol Discontinued 1 TAB PO Twice daily December 15, 2016 11:00pm December 19, 2016 10:10am cholecalciferol 0.05 mg oral capsule (20 sources) Vitamin D Start: 12-16-2016 take 1 capsule by mouth once daily Cholecalciferol (Vitamin D3) Active 1 CAP PO Daily December 16, 2016 12:00am Start: 12-16-2016 [facility] Cholecalciferol (Vitamin D3) Active 1 CAP PO Twice daily December 15, 2016 11:00pm cloNIDine hydrochloride 0.1 mg oral tablet (20 sources) Central alpha-2 Adrenergic Agonist Start: 10-21-2021 take 1 tablet by mouth twice daily cloNIDine HCl 0.1 MG 1 tablet Orally twice daily for 90 day(s) Oct, Active cyclobenzaprine hydrochloride 10 mg oral tablet (20 sources) Muscle Relaxant Start: 07-29-2021 End: 08-16-2021 take 10 mg by mouth at bedtime Cyclobenzaprine Active 10 MG PO Bedtime August 15, 2021 11:00pm dapagliflozin 5 mg oral tablet (20 sources) Sodium-Glucose Cotransporter 2 Inhibitor Start: 12-05-2022 take 1 tablet by mouth once daily in the morning Dapagliflozin Propanediol (Farxiga) 5 mg tablet Active 5 MG PO Every morning December 04, 2022 11:00pm Start: 07-29-2021 End: 08-16-2021 take 1 tablet by mouth once daily Dapagliflozin Propanediol (Farxiga) 5 mg Tablet Discontinued 5 MG PO Daily July 28, 2021 11:00pm August 16, 2021 9:22am dicyclomine hydrochloride 20 mg oral tablet (20 sources) Anticholinergic Start: 07-29-2021 take 20 mg by mouth four times daily Dicyclomine Active 20 MG PO Four times daily July 28, 2021 11:00pm take 1 tablet by jocelin th three times daily as needed Dicyclomine HCl 20 MG TAKE 1 TABLET BY M OUTH THREE TIMES A DAY NEEDED for 30 Active sprinkle DULoxetine 60 mg delayed release oral capsule (20 sources) Serotonin and Norepinephrine Reuptake Inhibitor Start: 08-16-2021 take 60 mg by mouth once daily in the morning Duloxetine Active 60 MG PO Every morning August 15, 2021 11:00pm Start: 01-24-2018 End: 07-29-2021 take 3 capsules by mouth once daily Duloxetine (Cymbalta) 20 mg Capsule,Delayed Release(Dr/Ec) Discontinued 60 MG PO Daily January 23, 2018 11:00pm July 29, 2021 2:58pm [facility] 1 [facility]-four hours DULoxetine HCl 60 MG 1 capsule Orally Once a day for 90 days Active ferrous sulfate 325 mg oral tablet (20 sources) Start: 10-24-2022 take 1 tablet by jocelin every twenty-four hours Start: 10-24-2022 take 1 tablet by jocelin th once daily Ferrous Sulfate 325 (65 Fe) MG 1 tablet Orally daily for 90 days Oct, Active Start: 07-29-2021 End: 07-30-2022 take 1 tablet by mouth once daily Ferrous Sulfate (Iron) 325 mg (65 mg iron) Tablet Discontinued 325 MG PO Daily October 23, 2021 12:32pm July 30, 2022 2:01pm Start: 12-16-2016 End: 01-24-2018 take 1 tablet by mouth once daily Ferrous Sulfate Discontinued 1 TAB PO Daily December 26, 2016 11:47am January 24, 2018 5:40pm fluticasone propionate 0.05 mg/actuat metered dose nasal spray (20 sources) Corticosteroid Start: 01-24-2018 End: 07-29-2021 Fluticasone Propionate (Flonase) 50 mcg/actuation [place],Suspension Active 1 SPRAY INTRANASAL Daily July 28, 2021 11:00pm Start: 12-16-2016 End: 04-17-2017 Fluticasone Propionate (Flon ase Allergy Relief) 50 mcg/actuation [place],Suspension Discontinued 1 SPRAY INTRANASAL Daily December 26, 2016 11:47am April 17, 2017 10:04am take 1 spray(s) nasa l route once daily as needed take 1 spray(s) nasa l route once daily as needed FreeStyle Alfredo 14 Day Reade r - (20 sources) Start: 02-12-2022 Start: 02-12-2022 FreeStyle Libr e 14 Day Daisy - as directed every 14 days Feb, Active FreeStyle Alfredo 14 Day Senso r - (20 sources) Start: 02-12-2022 Start: 02-12-2022 FreeStyle Libr e 14 Day Sensor - as directed every 14 days for 28 days Feb, Active FreeStyle Alfredo 2 Daisy - (20 sources) Start: 02-19-2022 FreeStyle Libr e 2 Daisy - as directed Feb, Active FreeStyle Alfredo 2 Daisy - as directed Active FreeStyle Alfredo 2 Sensor - (20 sources) Start: 08-04-2022 Start: 08-04-2022 Start: 08-04-2022 FreeStyle Libr e 2 Sensor - as directed SQ every 14 days for 90 days Jul, Active Start: 02-19-2022 FreeStyle Libr e 2 Sensor - as directed SQ every 2 weeks for 30 days Feb, Active gabapentin 100 mg oral capsule (20 sources) Anti-epileptic Agent Start: 08-16-2021 take 600 mg by mouth twice daily Gabapentin Active 600 MG PO Twice daily August 15, 2021 11:00pm Start: 08-16-2021 take 300 mg by mouth three times daily Gabapentin Active 300 MG PO Three times daily August 16, 2021 12:00am Start: 08-16-2021 take 100 mg by mouth three times daily Gabapentin Active 100 MG PO Three times daily August 16, 2021 12:00am Start: 12-16-2016 End: 07-30-2022 take 1 tablet by mouth three times daily Gabapentin Discontinued 1 TAB PO Three times daily April 17, 2017 10:10am July 30, 2022 1:59pm take 1 capsule [facility] every twenty-four hours Gabapentin 300 MG 1 capsule Orally Once a day Active hydrOXYzine hydrochloride 10 mg oral tablet (20 sources) Antihistamine Start: 07-29-2021 take 10 mg by mouth three times daily Hydroxyzine Hcl Active 10 MG PO Three times daily July 28, 2021 11:00pm Insulin Lispro-Aabc (Lyumjev Kwikpen U-100 Insulin) 100 unit/mL insulin pen (4 sources) Start: 12-05-2022 Insulin Lispro -Aabc (Lyumjev Kwikpen U-100 Insulin) 100 unit/mL insulin pen Active 30 UNIT SUBCUT 3x/Day before meals December 04, 2022 11:00pm FSBS 151-200 2 u 200-250 3 units 250-300 5 units 300-350 6 units 351-400 7 units per patient Start: 12-05-2022 Insulin Lispro -Aabc (Lyumjev Alidaikpen U-100 Insulin) 100 unit/mL insulin pen Active 30 UNIT SUBCUT 3x/Day before meals December 05, 2022 12:00am FSBS 151-200 2 u 200-250 3 units 250-300 5 units 300-350 6 units 351-400 7 units per patient Iron (17 sources) take 1 tablet by mouth once daily Iron 325 (65 Fe) MG 1 tablet Orally Once a day for 30 day(s) Active 24 hr levomilnacipran 120 mg extended release oral capsule (20 sources) Serotonin and Norepinephrine Reuptake Inhibitor Start: take 1 capsule by mouth once daily in the morning Levomilnacipran (Fetzima) 120 mg Capsule,Extended Release 24 Hr Active 120 MG PO Every morning July 28, 2021 11:00pm Start: 01-24-2018 End: 07-29-2021 take 1 capsule by mouth once daily Levomilnacipran (Fetzima) 80 mg Capsule,Extended Release 24 Hr Discontinued 80 MG PO Daily January 23, 2018 11:00pm July 29, 2021 2:57pm levothyroxine sodium 0.075 mg oral tablet (20 sources) l-Thyroxine Start: 07-29-2021 take 50 ug by mouth once daily in the morning Levothyroxine Active 50 MCG PO Every morning July 28, 2021 11:00pm take 1 tablet by mouth once erlinda y in the morning take 1 tablet by mouth once erlinda y in the morning loperamide hydrochloride 2 mg oral tablet (4 sources) Opioid Agonist Start: 03-19-2023 take 1 tablet by mouth every six hours Imodium A-D 2 MG 1 tablet as needed Orally Four times a day for 10 days Mar, Active Lubricant Eye Drops 0.5 % (20 sources) Start: 08-07-2022 take 1 drop(s) into the eye(s) three times daily as needed Start: 08-07-2022 Start: 08-07-2022 take 1 drop(s) into the eye(s) three times daily as needed Lubricant Eye Drops 0.5 % 1 drop each eye Ophthalmic TID PRN for 30 days Jul, Active magnesium oxide 400 mg oral capsule (20 sources) Start: 01-24-2018 take 400 mg by mouth once daily Magnesium Oxide Active 400 MG PO Daily January 23, 2018 11:00pm Start: 12-16-2016 End: 04-17-2017 take 1 tablet by mouth once daily Magnesium Oxide Discontinued 1 TAB PO Daily December 26, 2016 11:47am April 17, 2017 10:02am methylPREDNISolone 4 mg oral tablet (2 sources) Corticosteroid Start: 08-07-2022 methylPREDNISolone 4 MG as directed Orally as directed for 6 days Jul, Active olopatadine 1 mg/ml ophthalmic solution (20 sources) Histamine-1 Receptor Inhibitor Start: 09-17-2022 take 1 drop(s) into the eye(s) twice daily Olopatadine HCl 0.1 % 1 drop into affected eye Ophthalmic Twice a day for 30 days Sep, Active Start: 09-17-2022 Olopatadine HCl 0.1 % INSTILL 1 DROP INTO AFFECTED EYE TWICE A DAY FOR 30 DAYS for 30 Not-Taking/PRN omeprazole 40 mg delayed release oral capsule (20 sources) Proton Pump Inhibitor Start: 01-24-2018 take 40 mg by mouth once daily in the morning Omeprazole Active 40 MG PO Every morning January 23, 2018 11:00pm Start: 12-16-2016 End: 04-17-2017 take 1 capsule by mouth once daily Omeprazole Discontinued 1 CAP PO Daily December 26, 2016 11:47am April 17, 2017 10:00am 24 hr oxybutynin chloride 10 mg extended release oral tablet (20 sources) Cholinergic Muscarinic Antagonist Start: 01-24-2018 take 10 mg by mouth once daily in the morning Oxybutynin Chloride Active 10 MG PO Every morning January 23, 2018 11:00pm Start: 12-16-2016 End: 04-17-2017 take 1 tablet by mouth once daily Oxybutynin Chloride Discontinued 1 TAB PO Daily December 26, 2016 11:47am April 17, 2017 10:00am Oxygen 4-6 liters (20 sources) Oxygen 4-6 liter s continuous 5 liters Active Oxygen 4-6 liter s continuous Active (20 sources) Active ProAir HFA 108 (90 Base) MCG /ACT (20 sources) take 1 puff(s) by in halation every four hours as needed ProAir HFA 108 (90 Base) MCG/ACT 1 puff as needed Inhalation every 4 hrs for 30 days Active take 1 puff(s) by in halation every four hours as needed Rollator Ultra-Light - (20 sources) Start: 09-09-2022 Start: 09-09-2022 Rollator Ultra -Light - as directed August, Active Start: 09-09-2022 Start: 09-09-2022 Rollator Ultra -Light - as directed ROLLATOR WITH OXYGEN TANK SINGH August, Active sucralfate 1000 mg oral tablet (20 sources) Aluminum Complex Start: 07-29-2021 take 1 g by mouth twice daily Sucralfate Active 1 GM PO Twice daily July 29, 2021 12:00am Start: 07-29-2021 take 1 g by mouth th ree times daily Sucralfate Active 1 GM PO Three times daily July 28, 2021 11:00pm Start: 09-07-2019 take 1 tablet by jocelin th every eight hours Sucralfate 1 GM 1 tablet on an empty stomach Orally tid for 30 days August, Active take 1 tablet by jocelin th twice daily take 1 tablet by jocelin th twice daily Sucralfate 1 GM TAKE 1 TABLET BY MOUTH TWICE DAILY ON AN EMPTY STOMACH for 30 Active tobramycin 3 mg/ml ophthalmic solution (15 sources) Aminoglycoside Antibacterial Start: 05-15-2022 take 1 drop(s) into the eye(s) every four hours Tobramycin 0.3 % 1 drop into affected eye Ophthalmic every 4 hrs for 7 days May, Active traMADol hydrochloride 50 mg oral tablet (20 sources) Opioid Agonist take 1 tablet by mouth every eight hours traMADol HCl 50 MG 1 tablet as needed Orally three times a day Active Vitamin D-3 1999 (20 sources) take 2 capsules by mouth once da marty take 2 capsules by mouth once da amrty Vitamin D-3 2000 2 CAP Orally Once a day for 90 days Active take 2 capsules by mouth once da marty Vitamin D-3 2000 2 CAP Orally Once a day for 30 day(s) Active Wheelchair - (20 sources) Start: 09-09-2022 Start: 09-09-2022 Start: 09-09-2022 Wheelchair - a s directed WITH OXYGEN TANK SINGH August, Active zonisamide 50 mg oral capsule (20 sources) Anti-epileptic Agent Start: 07-29-2021 take 25 mg by mouth twice daily Zonisamide Active 25 MG PO Twice daily July 28, 2021 11:00pm Start: 07-29-2021 take 50 mg by mouth twice erlinda y Zonisamide Active 50 MG PO Twice daily July 29, 2021 12:00am take 2 capsules by m outh every twelve hours take 2 capsules by m outh every twelve hours Completed/Discontinued Medications Medication Drug Class(es) Dates Sig (Normalized) Sig (Original) albuterol 0.833 mg/ml / ipratropium bromide 0.167 mg/ml inhalation solution (20 sources) Anticholinergic, beta2-Adrenergic Agonist Start: 08-16-2021 End: 08-16-2021 take 1 mL by inhalation four times daily Ipratropium-Albuter ol Discontinued 3 ML INHALATION Four times daily August 15, 2021 11:00pm August 16, 2021 9:33am Start: 07-29-2021 take 1 mL by inhalat ion every six hours Ipratropium-Albuterol Active 3 ML INHALATION Q6H July 28, 2021 11:00pm Start: 02-16-2017 take 3 mL by inhalat ion every six hours Start: 02-16-2017 Start: 12-16-2016 End: 12-16-2016 Ipratropium-Albuterol Discon tinued December 15, 2016 11:00pm December 16, 2016 3:10am allopurinol 300 mg oral tablet (13 sources) Xanthine Oxidase Inhibitor Start: 01-24-2018 End: 07-29-2021 take 300 mg by mouth once daily Allopurinol Discontinued 300 MG PO Daily January 23, 2018 11:00pm July 29, 2021 10:13am Asenapine Maleate (Saphris (Black Simon)) 5 mg Tablet, Sublingual (13 sources) Start: 01-24-2018 End: 08-16-2021 take 1 tablet under the tongue once daily Asenapine Maleate (Saphris (Black Simon)) 5 mg Tablet, Sublingual Discontinued 5 MG SUBLINGUAL Daily January 23, 2018 11:00pm August 16, 2021 9:19am Start: 01-24-2018 End: 08-16-2021 take 1 tablet under the tongue once daily Asenapine Maleate (Saphris (Black Simon)) 5 mg Tablet, Sublingual Discontinued 5 MG SUBLINGUAL Daily January 24, 2018 12:00am August 16, 2021 10:19am Asenapine Maleate (Saphris) 5 mg Tablet, Sublingual (13 sources) Start: 08-16-2021 End: 09-26-2021 take 1 tablet under the tongue once daily at bedtime Asenapine Maleate (Saphris) 5 mg Tablet, Sublingual Discontinued 5 MG SUBLINGUAL Daily at bedtime August 15, 2021 11:00pm September 26, 2021 8:13am Start: 08-16-2021 End: 09-26-2021 take 1 tablet under the tongue once daily at bedtime Asenapine Maleate (Saphris) 5 mg Tablet, Sublingual Discontinued 5 MG SUBLINGUAL Daily at bedtime August 16, 2021 12:00am September 26, 2021 9:13am aspirin 81 mg delayed release oral tablet (20 sources) Platelet Aggregation Inhibitor, Nonsteroidal Anti-inflammatory Drug Start: 12-19-2016 End: 12-26-2016 take 81 mg by mouth once daily Aspirin Discontinued 81 MG PO Daily December 18, 2016 11:00pm December 26, 2016 11:47am atorvastatin 40 mg oral tablet (20 sources) HMG-CoA Reductase Inhibitor Start: 12-19-2016 End: 04-17-2017 take 40 mg by mouth once daily in the evening Atorvastatin Discontinued 40 MG PO Every evening December 26, 2016 11:47am April 17, 2017 10:08am celecoxib 200 mg oral capsule (20 sources) Nonsteroidal Anti-inflammatory Drug Start: 08-16-2021 End: 09-26-2021 take 200 mg by mouth twice daily Celecoxib Discontinued 200 MG PO Twice daily August 15, 2021 11:00pm September 26, 2021 8:13am take 1 capsule by [facility] every twelve hours Celecoxib 200 MG 1 capsule with food Orally Twice a day Active clobetasol propionate 0.0005 mg/mg topical ointment (13 sources) Corticosteroid Start: 07-29-2021 End: 07-30-2022 Clobetasol Discontinued 1 APPLIC TOPICAL Daily 09 11July 28, 2021 11:00pm July 30, 2022 2:01pm colestipol hydrochloride 1000 mg oral tablet (20 sources) Bile Acid Sequestrant Start: 07-29-2021 End: 07-30-2022 take 2 g by mouth once daily Colestipol Discontinued 2 GM PO Daily July 28, 2021 11:00pm July 30, 2022 2:01pm Start: 10-04-2019 take 2 tablets by mouth every twenty-four hours Start: 10-04-2019 take 2 tablets by mouth every twenty-four hours Start: 10-04-2019 take 2 tablets by mouth every twenty-four hours diazePAM 10 mg oral tablet (20 sources) Benzodiazepine Start: 12-16-2016 End: 04-17-2017 take 1 tablet by mouth once daily Diazepam Discontinued 1 TAB PO Daily December 26, 2016 11:47am April 17, 2017 10:05am eluxadoline 100 mg oral tablet (20 sources) mu-Opioid Receptor Agonist Start: 12-16-2016 End: 07-29-2021 take 1 tablet by mouth twice daily Eluxadoline (Viberzi) 100 mg Tablet Discontinued 1 TAB PO Twice daily April 17, 2017 12:00am July 29, 2021 10:11am 0.3 ml enoxaparin sodium 100 mg/ml prefilled syringe (13 sources) Low Molecular Weight Heparin Start: 12-19-2016 End: 12-26-2016 Enoxaparin (Lovenox) 30 mg/0.3 mL Syringe Discontinued 30 MG SUBCUT Q12H December 18, 2016 11:00pm December 26, 2016 11:20am estrogens, conjugated (group home) 0.3 mg oral tablet (13 sources) Estrogen Start: 01-24-2018 End: 07-29-2021 take 1 tablet by mouth once daily Conjugated Estrogens (Premarin) 0.3 mg Tablet Discontinued 0.3 MG PO Daily January 23, 2018 11:00pm July 29, 2021 10:11am Fluticasone Propion-Salmetero l (20 sources) Corticosteroid, beta2-Adrenergic Agonist Start: 12-26-2016 End: 04-17-2017 take 1 puff(s) by inhalation twice daily Fluticasone Propion-Salmetero l (Advair Hfa) 115-21 mcg/actuation Hfa Aerosol Inhaler Discontinued 2 PUFF INHALATION Twice daily December 26, 2016 11:47am April 17, 2017 10:04am Start: 12-26-2016 End: 04-17-2017 take 1 puff(s) by inhalation twice daily Fluticasone Propion-Salmeterol (Advair Hfa) 115-21 mcg/actuation Hfa Aerosol Inhaler Discontinued 2 PUFF INHALATION Twice daily December 26, 2016 12:47pm April 17, 2017 11:04am Start: 12-19-2016 End: 12-26-2016 take 1 puff(s) by inhalation twice daily Fluticasone Propion-Salmeterol (Advair Hfa) 115-21 mcg/actuation Hfa Aerosol Inhaler Discontinued 2 PUFF INHALATION Twice daily December 18, 2016 11:00pm December 26, 2016 11:47am Start: 12-19-2016 End: 12-26-2016 take 1 puff(s) by inhalation twice daily Fluticasone Propion-Salmeterol (Advair Hfa) 115-21 mcg/actuation Hfa Aerosol Inhaler Discontinued 2 PUFF INHALATION Twice daily December 19, 2016 12:00am December 26, 2016 12:47pm furosemide 20 mg oral tablet (20 sources) Loop Diuretic Start: 12-27-2013 take 1.5 tablets by mouth every twenty-four hours Lasix 40 MG 1.5 tablet Orally Once a day for 30 day(s) Dec, Active Start: 12-27-2013 End: 08-16-2021 take 3 tablets by mouth once daily Furosemide Discontinued 3 TAB PO Daily July 29, 2021 10:13am August 16, 2021 9:33am Start: 12-27-2013 End: 09-26-2021 take 1 tablet by mouth once daily Furosemide (Lasix) 40 mg Tablet Discontinued 40 MG PO Daily August 15, 2021 11:00pm September 26, 2021 8:14am 3 ml insulin aspart, human 100 unt/ml pen injector (13 sources) Insulin Analog Start: 12-19-2016 End: 04-17-2017 Insulin Aspart U-100 (Novolog Flexpen U-100 Insulin) 100 unit/mL Insulin Pen Discontinued 0 UNITS SUBCUT 3X/Day with meals and bedtime 60 December 18, 2016 11:00pm April 17, 2017 10:02am 3 ml insulin glargine 100 unt/ml pen injector (20 sources) Insulin Analog Start: 12-05-2022 End: 12-05-2022 Insulin Glargine (Lantus Solostar U-100 Insulin) 100 unit/mL (3 mL) insulin pen Discontinued 30 UNIT SUBCUT 3x/Day before meals December 04, 2022 11:00pm December 05, 2022 12:39pm If Blood sugar is greater than 140 takes 2 more units-per patient Start: 08-16-2021 Insulin Glargi ne (Basaglar Kwikpen U-100 Insulin) 100 unit/mL (3 mL) Insulin Pen Active 40 UNIT SUBCUT Daily at bedtime August 15, 2021 11:00pm Start: 08-16-2021 Insulin Glargi ne (Basaglar Kwikpen U-100 Insulin) 100 unit/mL (3 mL) Insulin Pen Active 15 UNIT SUBCUT Every morning August 16, 2021 12:00am If BGL greater than 140 Basaglar KwikPen 100 UNIT/ML 22 units Subcutaneous once a day Active Basaglar KwikPen 100 UNIT/ML 17 units Subcutaneous once a day Active Lantus Active ipratropium bromide 0.021 mg/actuat metered dose nasal spray (20 sources) Anticholinergic Start: 12-16-2016 End: 04-17-2017 Ipratropium [place] Discontinued 2 SPRAY INTRANASAL Twice daily December 26, 2016 11:47am April 17, 2017 10:02am metFORMIN hydrochloride 850 mg oral tablet (20 sources) Biguanide Start: 07-29-2021 End: 12-05-2022 take 850 mg by mouth once daily Metformin Discontinued 850 MG PO Daily July 28, 2021 11:00pm December 05, 2022 12:40pm Start: 04-17-2017 End: 01-24-2018 take 500 mg by mouth twice daily Metformin Discontinued 500 MG PO Twice daily April 17, 2017 12:00am January 24, 2018 5:41pm metFORMIN hydrochloride 850 mg / pioglitazone 15 mg oral tablet (20 sources) Biguanide, Peroxisome Proliferator Receptor alpha Agonist, Peroxisome Proliferator Receptor gamma Agonist, Thiazolidinedione Start: 12-16-2016 End: 12-26-2016 take 1 tablet by mouth once daily at breakfast Pioglitazone-Metformin Discontinued 1 TAB PO Daily with breakfast December 15, 2016 11:00pm December 26, 2016 11:42am take 1 tablet by mouth every twe lve hours take 1 tablet by mouth every twe lve hours mirtazapine 30 mg oral tablet (20 sources) Start: 07-29-2021 End: 09-26-2021 take 1 tablet by mouth once daily Mirtazapine (Remeron) 30 mg Tablet Discontinued 30 MG PO Daily August 15, 2021 11:00pm September 26, 2021 8:17am Start: 12-16-2016 End: 04-17-2017 take 1 tablet by mouth at bedtime Mirtazapine Discontinued 1 TAB PO Bedtime December 26, 2016 11:47am April 17, 2017 10:02am montelukast 10 mg oral tablet (20 sources) Leukotriene Receptor Antagonist Start: 12-16-2016 End: 10-05-2017 take 1 tablet by mouth once daily Montelukast Discontinued 1 TAB PO Daily December 26, 2016 11:47am October 05, 2017 1:52pm nabumetone 750 mg oral tablet (20 sources) Nonsteroidal Anti-inflammatory Drug Start: 01-24-2018 End: 07-29-2021 take 750 mg by mouth twice daily Nabumetone Discontinued 750 MG PO Twice daily January 23, 2018 11:00pm July 29, 2021 10:12am Start: 12-16-2016 End: 04-17-2017 take 1 tablet by mouth twice daily Nabumetone Discontinued 1 TAB PO Twice daily December 26, 2016 11:47am April 17, 2017 10:01am nortriptyline 10 mg oral capsule (20 sources) Tricyclic Antidepressant Start: 01-24-2018 End: 07-29-2021 take 10 mg by mouth once daily at bedtime Nortriptyline Discontinued 10 MG PO Daily at bedtime January 23, 2018 11:00pm July 29, 2021 10:12am Start: 12-16-2016 End: 04-17-2017 take 1 capsule by mouth once daily Nortriptyline Discontinued 1 CAP PO Daily December 26, 2016 11:47am April 17, 2017 10:00am pioglitazone 15 mg oral tablet (20 sources) Peroxisome Proliferator Receptor alpha Agonist, Peroxisome Proliferator Receptor gamma Agonist, Thiazolidinedione Start: 01-24-2018 End: 07-29-2021 take 15 mg by mouth twice daily Pioglitazone Discontinued 15 MG PO Twice daily January 24, 2018 5:45pm July 29, 2021 10:12am Start: 12-26-2016 End: 01-24-2018 take 15 mg by mouth once daily at breakfast Pioglitazone Discontinued 15 MG PO Daily with breakfast December 25, 2016 11:00pm January 24, 2018 5:45pm 24 hr QUEtiapine 300 mg extended release oral tablet (20 sources) Atypical Antipsychotic Start: 12-16-2016 End: 04-17-2017 take 1 tablet by mouth at bedtime Quetiapine Discontinued 1 TAB PO Bedtime December 26, 2016 11:47am April 17, 2017 9:59am 0.25 mg, 0.5 mg dose 1.5 ml semaglutide 1.34 mg/ml pen injector (20 sources) Start: 07-29-2021 End: 08-16-2021 Semaglutide (Ozempic) 0.25 mg or 0.5 mg(2 mg/1.5 mL) Pen Injector Discontinued 0.5 MG SUBCUT every week July 28, 2021 11:00pm August 16, 2021 9:25am Start: 05-23-2021 Ozempic (0.25 or 0.5 MG/DOSE) 2 MG/1.5ML 0.25 mg weekly for 4 weeks then increase to 0.5 mg weekly Subcutaneous weekly for 30 days May, Active theophylline 5.33 mg/ml oral solution (20 sources) Methylxanthine Start: 08-16-2021 End: 12-05-2022 take 200 mg by mouth once daily Theophylline (Nishant) 80 mg/15 mL Elixir Discontinued 200 MG PO Daily August 15, 2021 11:00pm December 05, 2022 12:43pm Start: 07-13-2013 End: 08-16-2021 take 1 capsule by mouth every twenty-four hours Nishant-24 200 mg 1 tablet Orally daily for 30 days Jul, Active tiZANidine 4 mg oral tablet (20 sources) Central alpha-2 Adrenergic Agonist Start: 07-29-2021 End: 09-26-2021 take 0.5 tablet by mouth twice daily in the morning, then take 2 tablets by mouth at bedtime Tizanidine (Zanaflex) 4 mg Tablet Discontinued 4 MG PO Twice daily July 28, 2021 11:00pm September 26, 2021 8:19am half tab in AM and 2 at HS Start: 01-24-2018 End: 07-29-2021 take 1 capsule by mouth twice daily Tizanidine (Zanaflex) 4 mg Capsule Discontinued 4 MG PO Twice daily January 23, 2018 11:00pm July 29, 2021 10:11am Start: 12-16-2016 End: 04-17-2017 take 1 tablet by mouth twice daily Tizanidine Discontinued 1 TAB PO Twice daily 60 December 26, 2016 11:47am April 17, 2017 9:58am 24 hr venlafaxine 150 mg extended release oral capsule (20 sources) Serotonin and Norepinephrine Reuptake Inhibitor Start: 12-16-2016 End: 04-17-2017 take 2 capsules by mouth once daily Venlafaxine Discontinued 2 CAP PO Daily 60 December 26, 2016 11:47am April 17, 2017 9:50am vortioxetine 20 mg oral tablet (20 sources) Start: 01-24-2018 End: 07-29-2021 take 1 tablet by mouth once daily Vortioxetine (Trintellix) 20 mg Tablet Discontinued 20 MG PO Daily January 23, 2018 11:00pm July 29, 2021 10:11am Start: 12-16-2016 End: 04-17-2017 take 1 tablet by mouth once daily Vortioxetine (Trintellix) 20 mg Tablet Discontinued 20 MG PO Daily December 26, 2016 11:47am April 17, 2017 9:51am zolpidem tartrate 6.25 mg extended release oral tablet (20 sources) gamma-Aminobutyric Acid-ergic Agonist Start: 07-29-2021 End: 08-16-2021 take 1 tablet by mouth once daily at bedtime Zolpidem (Ambien Cr) 6.25 mg Tablet,Ext Release Multiphase Discontinued 6.25 MG PO Daily at bedtime July 28, 2021 11:00pm August 16, 2021 9:26am Start: 04-17-2017 End: 10-05-2017 take 1 tablet by mouth once daily at bedtime Zolpidem (Ambien) 5 mg Tablet Discontinued 1 TAB PO Daily at bedtime April 17, 2017 12:00am October 05, 2017 1:58pm Start: 12-16-2016 End: 04-17-2017 take 1 tablet by mouth at bedtime Zolpidem Discontinued 1 TAB PO Bedtime 30 December 26, 2016 11:47am April 17, 2017 9:58am Problems Active Problems Problem Classification Problem Date Documented Da te Episodic/Chronic Abdominal pain (20 sources) Abdominal pain; Translations: [Unspecified abdominal pain] 08-16-2021 Episodic Acute and unspecified renal failure (13 sources) Injury of kidney; Translations: [Acute kidney failure, unspecified] 08-16-2021 Episodic Blindness and vision defects (13 sources) Visual hallucinations; Translations: [Visual hallucinations] 01-23-2017 Episodic Cataract (1 source) Unspecified cataract; Translations: [Unspecified cataract] Onset: 3 Chronic Chronic kidney disease (20 sources) Chronic kidney disease stage 3B ; Translations: [Stage 3b chronic kidney disease] 08-16-2021 Chronic Chronic obstructive pulmonary disease and bronchiectasis (20 sources) Chronic obstructive lung disease; Translations: [Chronic obstructive pulmonary disease, unspecified] 08-16-2021 Chronic Chronic ulcer of skin (20 sources) Chronic ulcer of skin of lower leg; Translations: [Non-pressure chronic ulcer of other part of left lower leg limited to breakdown of skin] Onset: 2 Resolved: 2 Chronic Deficiency and other anemia (13 sources) Iron deficiency anemia; Translations: [Iron deficiency anemia, unspecified] 10-24-2021 Episodic Deficiency and other anemia (8 sources) Iron deficiency anemia, unspecified; Translations: [Iron deficiency anemia, unspecified] 10-23-2021 Episodic Diabetes mellitus with complications (20 sources) Type 2 diabetes mellitus; Translations: [Type 2 diabetes mellitus with unspecified complications] Onset: 1 Resolved: 2 Chronic Diabetes mellitus without complication (20 sources) Diabetes mellitus; Translations: [Type 2 diabetes mellitus without complications] 08-16-2021 Chronic Esophageal disorders (20 sources) Gastroesophageal reflux disease; Translations: [Gastro-esophageal reflux disease without esophagitis] Onset: 1 Resolved: 1 Chronic Essential hypertension (20 sources) Essential hypertension; Translations: [Essential (primary) hypertension] Onset: 2 Resolved: 2 Chronic Fluid and electrolyte disorders (20 sources) Dehydration; Translations: [Dehydration] 12-16-2016 Episodic Gastroduodenal ulcer (except hemorrhage) (20 sources) Peptic ulcer; Translations: [Peptic ulcer, site unspecified, unspecified as acute or chronic, without hemorrhage or perforation] Chronic Inflammation; infection of eye (except that caused by tuberculosis or sexually transmitteddisease) (1 source) Unspecified conjunctivitis Episodic Malaise and fatigue (20 sources) Fatigue; Translations: [Chronic fatigue, unspecified] Chronic Malaise and fatigue (13 sources) Asthenia; Translations: [Other malaise] 08-16-2021 Episodic Mood disorders (20 sources) Major depression with psychotic features; Translations: [Major depressive disorder, single episode, severe with psychotic features] 08-16-2021 Chronic Neoplasms of unspecified nature or uncertain behavior (20 sources) Neuropathy; Translations: [Monoclonal gammopathy] Onset: 3 08-16-2021 Chronic Other aftercare (20 sources) Long-term current use of insulin; Translations: [intermodal customer service (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] Episodic Other aftercare (4 sources) Other technician terminal and repeater (current) drug therapy Onset: 2 Resolved: 2 Episodic Other connective tissue disease (13 sources) Rhabdomyolysis; Translations: [Rhabdomyolysis] 08-16-2021 Episodic Other connective tissue disease (20 sources) Recurrent falls ; Translations: [Repeated falls] 08-16-2021 Episodic Other connective tissue disease (1 source) Repeated falls Episodic Other diseases of veins and lymphatics (20 sources) Acquired lymphedema of lower extremity; Translations: [Lymphedema, not elsewhere classified] Chronic Other diseases of veins and lymphatics (7 sources) Lymphedema, not elsewhere classified Onset: 2 Resolved: 2 Chronic Other diseases of veins and lymphatics (20 sources) Ulcer of lower extremity; Translations: [Venous insufficiency (chronic) (peripheral)] Episodic Other diseases of veins and lymphatics (2 sources) Venous insufficiency (chronic) (peripheral) Onset: 2 Resolved: 2 Episodic Other diseases of veins and lymphatics (13 sources) Stasis dermatitis; Translations: [Venous insufficiency (chronic) (peripheral)] 08-16-2021 Episodic Other diseases of veins and lymphatics (20 sources) Venous stasis edema of bilateral lower limbs; Translations: [Venous insufficiency (chronic) (peripheral)] Episodic Other gastrointestinal disorders (13 sources) Diarrhea; Translations: [Diarrhea, unspecified] 08-16-2021 Episodic Other gastrointestinal disorders (1 source) Diarrhea, unspecified Episodic Other hematologic conditions (10 sources) Raised cardiac enzyme or marker; Translations: [Other specified abnormalities of plasma proteins] 08-16-2021 Episodic Other nervous system disorders (20 sources) Chronic pain; Translations: [Other chronic pain] Chronic Other nervous system disorders (6 sources) Other chronic pain; Translations: [OTHER CHRONIC PAIN] Onset: 2 Resolved: 2 Chronic Other nervous system disorders (13 sources) Metabolic encephalopathy; Translations: [Metabolic encephalopathy] 08-16-2021 Chronic Other nervous system disorders (1 source) Polyneuropathy, unspecified Chronic Other nervous system disorders (20 sources) Abnormal gait; Translations: [Unsteadiness on feet] Episodic Other nervous system disorders (2 sources) Unsteadiness on feet Episodic Other non-traumatic joint disorders (3 sources) Pain in left hip; Translations: [Pain in left hip] Onset: 3 Episodic Other nutritional; endocrine; and metabolic disorders (20 sources) Morbid obesity; Translations: [Morbid (severe) obesity due to excess calories] 08-16-2021 Chronic Other nutritional; endocrine; and metabolic disorders (13 sources) Hypomagnesemia; Translations: [Hypomagnesemia] 08-16-2021 Chronic Other nutritional; endocrine; and metabolic disorders (8 sources) Morbid (severe) obesity due to excess calories; Translations: [Morbid obesity] 10-23-2021 Chronic Other screening for suspected conditions (not mental disorders or infectious disease) (5 sources) Encounter for screening mammogram for malignant neoplasm of breast; Translations: [Encounter for other screening for malignant neoplasm of breast] Onset: 1 Resolved: 1 Episodic Other skin disorders (13 sources) Hemosiderin pigmentation of skin; Translations: [Other specified disorders of pigmentation] 08-16-2021 Episodic Peripheral and visceral atherosclerosis (10 sources) Peripheral vascular disease; Translations: [Peripheral vascular disease, unspecified] Onset: 3 Chronic Residual codes; unclassified (20 sources) Obstructive sleep apnea syndrome; Translations: [Obstructive sleep apnea (adult) (pediatric)] 08-16-2021 Chronic Residual codes; unclassified (1 source) Obstructive sleep apnea (adult) (pediatric) Onset: 2 Resolved: 2 Chronic Residual codes; unclassified (13 sources) Peripheral edema; Translations: [Edema, unspecified] 08-16-2021 Episodic Respiratory failure; insufficiency; arrest (adult) (13 sources) Chronic hypercapnic respiratory failure; Translations: [Chronic respiratory failure with hypercapnia] 08-16-2021 Chronic Spondylosis; intervertebral disc disorders; other back problems (20 sources) Degeneration of lumbar intervertebral disc; Translations: [Other intervertebral disc degeneration, lumbar region] Onset: 2 Resolved: 2 Chronic Spondylosis; intervertebral disc disorders; other back problems (20 sources) Radiculopathy, lumbar region; Translations: [Sciatica] Onset: 2 Resolved: 2 Episodic Thyroid disorders (20 sources) Acquired hypothyroidism; Translations: [Hypothyroidism, unspecified] Onset: 1 Resolved: 1 Chronic Unclassified (4 sources) LOW BACK PAIN, UNSPECIFIED; Translations: [LOW BACK PAIN, UNSPECIFIED] Onset: 3 Unclassified (1 source) Pain in left hip; Translations: [Pain in left hip] Onset: 3 Unclassified (1 source) Varicose veins of bilateral lower extremities with pain; Translations: [Varicose veins of bilateral lower extremities with pain] Onset: 3 Unclassified (1 source) Encounter for screening mammogram for malignant neoplasm of breast; Translations: [Encounter for screening mammogram for malignant neoplasm of breast] Onset: 3 Urinary tract infections (14 sources) Urinary tract infectious disease; Translations: [Urinary tract infection, site not specified] 08-16-2021 Episodic Varicose veins of lower extremity (20 sources) Skin ulcer; Translations: [Varicose veins of unspecified lower extremity with ulcer of unspecified site] Onset: 2 Resolved: 2 Episodic Past or Other Problems Problem Classification Problem Date Documented Date Episodic/Chronic Chronic kidney disease (2 sources) Chronic kidney disease; Translations: [Stage 3b chronic kidney disease N18.32] Onset: 04-02-2021 Resolved: 07-22-2021 Deficiency and other anemia (1 source) Deficiency and other anemia Onset: 10-03-2021 Resolved: 10-03-2021 Genitourinary symptoms and ill-defined conditions (1 source) Hematuria, unspecified Onset: 12-23-2021 Resolved: 12-23-2021 Episodic Other aftercare (1 source) intermodal customer service (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 Onset: 04-02-2021 Resolved: 04-02-2021 Episodic Other skin disorders (1 source) Localized swelling, mass and lump, lower limb, bilateral Onset: 03-04-2021 Resolved: 03-04-2021 Episodic Other skin disorders (2 sources) Generalized hyperhidrosis Onset: 05-23-2021 Resolved: 06-20-2021 Episodic Residual codes; unclassified (1 source) Edema, unspecified Onset: 06-20-2021 Resolved: 06-20-2021 Episodic Unclassified (2 sources) Unspecified vitamin D deficiency 268.9 Onset: 05-15-2021 Resolved: 05-15-2021 Unclassified (1 source) Low back pain, unspecified M54.50 Onset: 08-07-2021 Resolved: 08-07-2021 Unclassified (1 source) Cough R05.9 Unclassified (1 source) LOW BACK PAIN, UNSPECIFIED; Translations: [LOW BACK PAIN, UNSPECIFIED] Onset: 07-03-2022 Results Test Name Value Interpretation Reference Range Facility US arterial pvr rest Melyssa US arterial pvr rest LE [facility] [place] [address] Ultrasound Report Signed Patient: Kelsea Turcios MR#: [id number] 58 : 1960 Acct:[id number] Age/Sex: 62 / F ADM Date: 02/19/23 Loc: Room: Type: [facility] CLI Attending Dr: Peri Tyson DO Ordering Provider: Peri Tyson DO Date of Service: 02/19/23 US/US arterial pvr rest LE: Claudication of both lower extremities Copies to: Peri Tyson DO LOWER EXTREMITY SEGMENTAL ARTERIAL DOPSCAN (PVR) INDICATION: Claudication PROCEDURE: Right arm blood pressure is 167 , left is 163 . Pressures throughout the right leg are 193 at the calf, 192 at the ankle using the posterior tibial artery, and 185 at the ankle using the dorsalis pedis artery with ankle-brachial index of 1.15 1.11 . Pressures throughout the left leg are 187 at the calf and 174 at the ankle using the posterior tibial artery, and 167 at the ankle using the dorsalis pedis artery with ankle-brachial index of 1.04 1.00 . Wave forms by plethysmography are normal.Bilaterally US/US arterial pvr rest LE IMPRESSION: NO HEMODYNAMICALLY SIGNIFICANT PERIPHERAL VASCULAR OCCLUSIVE DISEASE AT REST IN EITHER LOWER EXTREMITY. Impression dictated by: Domenico Whitmore M.D.02/20/2023 10:32 AM Dictation Location: [place] [address] Tech: Liyah Stuartelizabeth Transcribed By: RACHEL 02/20/23 1032 Dictated By: Domenico Whitmore MD 02/20/23 1031 Signed By: 02/20/23 1032 [facility] Activated partial thrombopla stin time (aPTT) in platelet poor plasma by coagulation aOrdered By: Roxane Bills on 02-12-2023 aPTT Coag (PPP) [Time] 23.4 s 25.1-36.5 [facility] Comment on above: A hematocrit value g reater than 55% may lead to inaccurate results in coagulation testing. Patients having hematocrit values >55% require a special collection tube for coagulation studies. Please contact the laboratory at [phone] for redraw instructions. Basophils Auto (Bld) [#/Vol] Ordered By: Roxane Bills on 02-12-2023 Basophils (Bld) [#/Vol] 0.1 10*3/uL 0.0-0.2 [facility] Basophils/100 WBC Auto (Bld) Ordered By: Roxane Bills on 02-12-2023 Basophils/100 WBC (Bld) 1.3 % . [facility] CT guided needle placementon 02-12-2023 CT guided needle placement [facility] Main [place] [id number] CT Scan Report Signed Patient: Kelsea Turcios MR#: [id number] 58 : 1960 Acct:[id number] Age/Sex: 62 / F ADM Date: 02/12/23 Loc: CT Room: Type: [facility] Attending Dr: Roxane Bills MD Copies to: Roxane Bills MD Ordering Provider: Roxane Bills MD Date of Service: 02/12/23 CT/CT guided bone marrow bx/aspir: MGUS ([id number]) CT/CT guided needle placement: . CT GUIDED BONE MARROW BIOPSY OF THE RIGHT ILIAC BONE: CLINICAL HISTORY: MGUS FINDINGS: After questions were answered, informed consent was obtained. The patient was placed prone on the CT table and the right iliac bone was selected for biopsy. The skin over the pelvis was prepped and d raped in normal sterile fashion. 1% lidocaine was utilized for local anesthesia. Utilizing CT guidance, an 11-gauge [employer] biopsy needle was advanced into the right iliac bone. 12mL of bone marrow was aspirated and given to pathology. After the sample was deemed adequate by pathology, a core biopsy was obtained and needle was withdrawn. Hemostasis was achieved. Bandage was applied. The patient tolerated procedure well without immediate complication. Please note that the patient was monitored throughout the procedure by nursing personnel. This CT exam was performed using one or more following dose reduction techniques: Automated exposure control, adjustment of the mA and/or kV according to patient size, or use of iterative reconstruction technique. CT/CT guided bone marrow bx/aspir IMPRESSION: Successful CT-guided bone marrow biopsy. Impression dictated by: Manish Mccurdy Jr., D.O.02/12/2023 11:44 AM Dictation Location: [place] [address] Transcribed By: [facility] 02/12/23 1144 Dictated By: Manish Mccurdy Jr, DO 02/12/23 1137 Signed By: 02/12/23 1144 Normal [facility] Coagulation Profileon 2022 aPTT Coag (Bld) [Time] 23.4 s Low 25.1-36.5 [facility] Comment on above: Order Comment: Stat for bx Result Comment: A he matocrit value greater than 55% may lead to inaccurate results in coagulation testing. Patients having hematocrit values >55% require a special collection tube for coagulation studies. Please contact the laboratory at [phone] for redraw instructions. PERFORMED BY: [address] [place] [address] PATHOLOGIST [employer] AQUILINO JACK M.D. Performed By: #### P P, CBC ####[place] [address] [place] [id number] [facility] INR Coag (PPP) [Relative time] 1.0 {INR} Normal [facility] Comment on above: Order Comment: Stat for bx Result Comment: INR Therapeutic Range A) Pre- and Peroperative OAT started two weeks before surgery. NOT HIP SURGERY: 1.5 - 2.5 HIP SURGERY: 2 - 3 B) Primary and secondary prevention of venous THROMBOSIS: 2 - 3 C) Active venous thrombosis, pulmonary embolism and prevention of recurrent venous thrombosis: 2 - 3 D) Prevention of arterial thromboembolism including patients with mechanical heart valves: 3 - 4.5 Performed By: #### P P, CBC ####[place] [id number] [facility] PT Coag (PPP) [Time] 12.4 s Normal 9.0-12.9 [facility] Comment on above: Order Comment: Stat for bx Result Comment: A he matocrit value greater than 55% may lead to inaccurate results in coagulation testing. Patients having hematocrit values >55% require a special collection tube for coagulation studies. Please contact the laboratory at [phone] for redraw instructions. Performed By: #### P P, CBC ####[address] [address] [facility] Complete Blood Count Auto Di ffon 02-12-2023 Basophils (Bld) [#/Vol] 0.1 10*3/uL Normal 0.0-0.2 [facility] Comment on above: Order Comment: Stat for bx Result Comment: PERF ORMED BY: [facility] [address] [place] [id number] PATHOLOGIST [employer] AQUILINO JACK M.D. Performed By: #### P P, CBC ####[place] [address] [place] [id number] [facility] Basophils/100 WBC (Bld) 1.3 % Normal . [facility] Comment on above: Order Comment: Stat for bx Performed By: #### P P, CBC ####[address] Eosinophils (Bld) [#/Vol] 0.9 10*3/uL High 0.0-0.45 [facility] Comment on above: Order Comment: Stat for bx Performed By: #### P P, CBC ####[address] Eosinophils/100 WBC (Bld) 7.7 % Normal . [facility] Comment on above: Order Comment: Stat for bx Performed By: #### P P, CBC ####[address] Erythrocyte distribution width (RBC) [Ratio] 14.1 % Normal 11.9-15.3 [facility] Comment on above: Order Comment: Stat for bx Performed By: #### P P, CBC ####[address] Hematocrit (Bld) [Volume fraction] 38.9 % Normal 34.0-46.4 [facility] Comment on above: Order Comment: Stat for bx Performed By: #### P P, CBC ####[address] Hemoglobin (Bld) [Mass/Vol] 12.8 g/dL Normal 11.8-15.4 [facility] Comment on above: Order Comment: Stat for bx Performed By: #### P P, CBC ####[address] Lymphocytes (Bld) [#/Vol] 2.8 10*3/uL Normal 1.00-4.8 [facility] Comment on above: Order Comment: Stat for bx Performed By: #### P P, CBC ####[address] Lymphocytes/100 WBC (Bld) 24.2 % Normal . [facility] Comment on above: Order Comment: Stat for bx Performed By: #### P P, CBC ####[address] MCH (RBC) [Entitic mass] 30.0 pg Normal 24.7-34.3 [facility] Comment on above: Order Comment: Stat for bx Performed By: #### P P, CBC ####[place] [id number] [facility] MCV (RBC) [Entitic vol] 91.2 fL Normal 80-100 [facility] Comment on above: Order Comment: Stat for bx Performed By: #### P P, CBC ####[address] Mean Corpuscular HGB Conc 32.9 g/dL Normal 32.0-35.0 [facility] Comment on above: Order Comment: Stat for bx Performed By: #### P P, CBC ####[address] Monocytes (Bld) [#/Vol] 1.0 10*3/uL High 0.0-0.8 [facility] Comment on above: Order Comment: Stat for bx Performed By: #### P P, CBC ####[address] Monocytes/100 WBC (Bld) 9.0 % Normal . [facility] Comment on above: Order Comment: Stat for bx Performed By: #### P P, CBC ####[address] Neutrophils (Bld) [#/Vol] 6.8 10*3/uL Normal 1.8-7.7 [facility] Comment on above: Order Comment: Stat for bx Performed By: #### P P, CBC ####[place] [id number] [facility] Neutrophils/100 WBC (Bld) 57.8 % Normal . [facility] Comment on above: Order Comment: Stat for bx Performed By: #### P P, CBC ####[place] [id number] [facility] NRBC% 0.1 /100{WBC} Normal 0-0.5 [facility] Comment on above: Order Comment: Stat for bx Performed By: #### P P, CBC ####[address] Platelet mean volume (Bld) [Entitic vol] 7.0 fL Normal 6.3-10.7 [facility] Comment on above: Order Comment: Stat for bx Performed By: #### P P, CBC ####[address] Platelets (Bld) [#/Vol] 334 10*3/uL Normal 150-450 [facility] Comment on above: Order Comment: Stat for bx Performed By: #### P P, CBC ####[address] RBC (Bld) [#/Vol] 4.27 10*6/uL Normal 3.60-5.00 [facility] Comment on above: Order Comment: Stat for bx Performed By: #### P P, CBC ####[address] WBC (Bld) [#/Vol] 11.7 10*3/uL High 3.8-11.6 [facility] Comment on above: Order Comment: Stat for bx Performed By: #### P P, CBC ####[address] Eosinophils Auto (Bld) [#/Vo l]Ordered By: Roxane Bills on 02-12-2023 Eosinophils (Bld) [#/Vol] 0.9 10*3/uL 0.0-0.45 [facility] Eosinophils/100 WBC Auto (Bl d)Ordered By: Roxane Bills on 02-12-2023 Eosinophils/100 WBC (Bld) 7.7 % . [facility] Erythrocyte distribution wid th Auto (RBC) [Ratio]Ordered By: Roxane Bills on 02-12-2023 Erythrocyte distribution width (RBC) [Ratio] 14.1 % 11.9-15.3 [facility] Hematocrit Auto (Bld) [Volum e fraction]Ordered By: Roxane Bills on 02-12-2023 Hematocrit (Bld) [Volume fraction] 38.9 % 34.0-46.4 [facility] Hemoglobin [Mass/volume] in BloodOrdered By: Roxane Bills on 02-12-2023 Hemoglobin (Bld) [Mass/Vol] 12.8 g/dL 11.8-15.4 [facility] INR in Platelet poor plasma by Coagulation assayOrdered By: Roxane Bills on 02-12-2023 INR Coag (PPP) [Relative time] 1.0 {INR} [facility] Comment on above: INR Therapeutic Rang e A) Pre- and Peroperative OAT started two weeks before surgery. NOT HIP SURGERY: 1.5 - 2.5 HIP SURGERY: 2 - 3B) Primary and secondary prevention of venous THROMBOSIS: 2 - 3C) Active venous thrombosis, pulmonary embolismand prevention of recurrent venous thrombosis: 2 - 3D) Prevention of arterial thromboembolismincluding patients with mechanical heart valves: 3 - 4.5 Heriberto 02-12-2023 L ---- Specimen: [id number] Received: 02/12/23 Status: JOHNNY [place] Num: [id number] Spec Type: Bone Marro Amilcar Dr: Manish Mccurdy Jr, DO Tissues: A Bone Marrow Aspirate (Clot) (RT ILIAC) B Bone Marrow Biopsy/Core (RT ILIAC) Procedures: Reticulum I, Peripheral Smr, Iron/2, HE/4, Gross/Micro L4/2, Bm Smear/2, CD138/2, CD20/2, CD3/2, CD31, CD34, CD56/2, CD68, E CADHERIN, Decalcification, IHC First AB, IHC Add AB/7, PAS - Hemat/2, Bone Marrow TP, GIEMSA STN/7 Age/ Patient Sex Location Account Attending Physician Kelsea Turcios 62/F CT [id number] Roxane Bills MD SPEC NUM: [id number] RECD: 02/12/23 STATUS: [place] NUM: [id number] KEYSHA: 02/12/23-999 [facility] DR: Manish Mccurdy Jr, DO ENTERED: 02/12/23 [facility] DR: Roxane Bills MD SPEC TYPE: Bone Marro DEPT: BM ORDERED: Reticulum I, Peripheral Smr, Iron/2, HE/4, Gross/Micro L4/2, Bm Smear/2, CD138/2, CD20/2, CD3/2, CD31, CD34, CD56/2, CD68, E CADHERIN, Decalcification, IHC First AB, IHC Add AB/7, PAS - Hemat/2, Bone Marrow TP, GIEMSA STN/7 ORDERED: Reticulum I, Peripheral Smr, Iron/2, HE/4, Gross/Micro L4/2, Bm Smear/2, CD138/2, CD20/2, CD3/2, CD31, CD34, CD56/2, CD68, E CADHERIN, USS/11, Decalcification, IHC First AB, IHC Add AB/, PAS - Hemat/2, Bone Marrow TP, GIEMSA STN Supplemental Report Addendum 1 Entered: 02/25/23 SUPPLEMENTAL FOR CYTOGENETICS -NORMAL FEMALE KARYOTYPE: 46, XX[20] NOTE: -Normal cytogenetics study, and no change of initial diagnosis Addendum Signed (signature on file) Chacorta-Sigifredo Lemon MD 02/25/231838 Specimen: [id number] Received: 02/12/23 Status: JOHNNY [place] Num: [id number] Spec Type: Bone Marro Subm Dr: Manish Mccurdy Jr, DO Tissues: A Bone Marrow Aspirate (Clot) (RT ILIAC) B Bone Marrow Biopsy/Core (RT ILIAC) Procedures: Reticulum I, Peripheral Smr, Iron/2, HE/4, Gross/Micro L4/2, Bm Smear/2, CD138/2, CD20/2, CD3/2, CD31, CD34, CD56/2, CD68, E CADHERIN, Decalcification, IHC First AB, IHC Add AB/, PAS - Hemat/2, Bone Marrow TP, GIEMSA STN Patient: Kelsea Turcios [id number] (Continued) Specimen: [id number] Received: 02/12/23 (Continued) Signed (signature on file) ChinSanket Lemon MD 02/22/23 1907 Specimen: [id number] Received: 02/12/23 Status: JOHNNY [place] Num: [id number] Spec Type: Bone Marro Subm Dr: Manish Mccurdy Jr, DO Tissues: A Bone Marrow Aspirate (Clot) (RT ILIAC) B Bone Marrow Biopsy/Core (RT ILIAC) Procedures: Reticulum I, Peripheral Smr, Iron/2, HE/4, Gross/Micro L4/2, Bm Smear/2, CD138/2, CD20/2, CD3/2, CD31, CD34, CD56/2, CD68, E CADHERIN, Decalcification, IHC First AB, IHC Add AB/7, PAS - Hemat/2, Bone Marrow TP, GIEMSA STN/7 Patient: Kelsea Turcios [id number] (Continued) Specimen: [id number] Received: 02/12/23 (Continued) Pathological Diagnosis AMB, right iliac crest bone marrow biopsy and aspirate: - Normocellular marrow for age, 40-50%, and with evidence of trilineage maturations - Mild plasmacytosis, probably 2-5% (per CD 138 of core), with occasional atypical plasma cells (by cytomorphology, and by CD 56 of core), compatible with plasma cell dyscrasia / neoplasm, and MGUS (SEE NOTE) - At least trace iron storage are noted - No increased blast, myelodysplastic feature, or other hematological malignancy observed Note 1: - The diagnosis of flow cytometric analysis is small monoclonal plasma cell population detected - 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 However, by visual estimation, (more content not included)... Normal [facility] Leukocytes [#/volume] correc shan for nucleated erythrocytes in Blood by Automated counOrdered By: Roxane Bills on 02-12-2023 WBC corrected for nucl RBC Auto (Bld) [#/Vol] 11.7 10*3/uL 3.8-11.6 [facility] Lymphocytes Auto (Bld) [#/Vo l]Ordered By: Roxane Bills on 02-12-2023 Lymphocytes (Bld) [#/Vol] 2.8 10*3/uL 1.00-4.8 [facility] Lymphocytes/100 WBC Auto (Bl d)Ordered By: Roxane Bills on 02-12-2023 Lymphocytes/100 WBC (Bld) 24.2 % . [facility] MCH Auto (RBC) [Entitic mass ]Ordered By: Roxane Bills on 02-12-2023 MCH (RBC) [Entitic mass] 30.0 pg 24.7-34.3 [facility] MCHC Auto (RBC) [Mass/Vol]Or dered By: Roxane Bills on 02-12-2023 MCHC (RBC) [Mass/Vol] 32.9 g/dL 32.0-35.0 [facility] MCV Auto (RBC) [Entitic vol] Ordered By: Roxane Bills on 02-12-2023 MCV (RBC) [Entitic vol] 91.2 fL 80-100 [facility] Monocytes Auto (Bld) [#/Vol] Ordered By: Roxane Bills on 02-12-2023 Monocytes (Bld) [#/Vol] 1.0 10*3/uL 0.0-0.8 [facility] Monocytes/100 WBC Auto (Bld) Ordered By: Roxane Bills on 02-12-2023 Monocytes/100 WBC (Bld) 9.0 % . [facility] Neutrophils Auto (Bld) [#/Vo l]Ordered By: Roxane Bills on 02-12-2023 Neutrophils (Bld) [#/Vol] 6.8 10*3/uL 1.8-7.7 [facility] Neutrophils/100 WBC Auto (Bl d)Ordered By: Roxane Bills on 02-12-2023 Neutrophils/100 WBC (Bld) 57.8 % . [facility] Nucleated erythrocytes [Pres ence] in Blood by Automated countOrdered By: Roxane Bills on 02-12-2023 Nucleated RBC Auto Ql (Bld) 0.1 /100{WBC} 0-0.5 [facility] Platelet mean volume Auto (B ld) [Entitic vol]Ordered By: Roxane Bills on 02-12-2023 Platelet mean volume (Bld) [Entitic vol] 7.0 fL 6.3-10.7 [facility] Platelets Auto (Bld) [#/Vol] Ordered By: Roxane Bills on 02-12-2023 Platelets (Bld) [#/Vol] 334 10*3/uL 150-450 [facility] Prothrombin time (PT)Ordered By: Roxane Bills on 02-12-2023 PT Coag (PPP) [Time] 12.4 s 9.0-12.9 [facility] Comment on above: A hematocrit value g reater than 55% may lead to inaccurate results in coagulation testing. Patients having hematocrit values >55% require a special collection tube for coagulation studies. Please contact the laboratory at [phone] for redraw instructions. RBC Auto (Bld) [#/Vol]Ordere d By: Roxane Bills on 02-12-2023 RBC (Bld) [#/Vol] 4.27 10*6/uL 3.60-5.00 [facility] WBC Auto (Bld) [#/Vol]Ordere d By: Roxane Bills on 02-12-2023 WBC (Bld) [#/Vol] 11.7 10*3/uL 3.8-11.6 [facility] XR bone surveyon 02-06-2023 XR bone survey [facility] [place] [address] XRay Report Signed Patient: Kelsea Turcios MR#: [id number] 58 : 1960 Acct:[id number] Age/Sex: 62 / F ADM Date: 02/06/23 [facility]: [facility]: [facility]: Roxane Bills MD Copies to: Roxane Bills MD Ordering Provider: Roxane Bills MD Date of Service: 02/06/23 XR/XR bone survey: MGUS Plain film bone survey HISTORY: Increased skeletal pain. MGUS. COMPARISON: 08/22/2021 No lytic or sclerotic lesion. Diffuse osteopenia. No acute fracture or dislocation. Mild scoliosis. Similar mild spinal degeneration. Similar left basilar lung scarring. XR/XR bone survey IMPRESSION: No lytic lesions. Impression dictated by: Domenico Brown M.D.02/06/2023 4:08 PM Dictation Location: [facility] Transcribed By: [facility] 02/06/23 1608 Dictated By: Domenico Brown DO 02/06/23 1606 Signed By: 02/06/23 1608 [facility] MR hip LT wo conon MR hip LT wo con [facility] [place] [address] MRI Report Signed Patient: Kelsea Turcios MR#: [id number] 58 : 1960 Acct:[id number] Age/Sex: 62 / F ADM Date: 02/04/23 Loc: [facility] Room: Type: [facility] Attending Dr: Peri Tyson DO Copies to: Peri Tysno DO Ordering Provider: Peri Tyson DO Date of Service: 02/04/23 MR/MR hip LT wo con: Left hip pain MRI left hip without IV contrast. Reason for exam: Left hip pain radiating down leg. No known injury. COMPARISON: Left hip series 09/16/2022. TECHNIQUE: Multisequence, multiplanar imaging of the left hip was obtained without the use of IV contrast. FINDINGS: Mild soft tissue swelling. Inflammatory changes are seen along the greater trochanter suspicious for trochanteric bursitis. Minimal joint. No acute fracture or evidence of avascular necrosis. Minimal joint spurring. No definitive labral tear is seen. Surrounding musculature demonstrates no acute findings. Intrapelvic contents demonstrate no acute findings. MR/MR hip LT wo con Impression: Evidence of trochanteric bursitis. No acute fracture or evidence of avascular necrosis. Minimal degenerative change. Impression dictated by: Manish Mccurdy Jr., D.OJane02/04/2023 12:35 PM Dictation Location: [facility] Transcribed By: RACHEL 02/04/23 1235 Dictated By: Manish Mccurdy Jr, DO 02/04/23 1230 Signed By: 02/04/23 1235 [facility] Alanine aminotransferase [En zymatic activity/volume] in Serum or PlasmaOrdered By: Roxane Bills on 01-22-2023 ALT [Catalytic activity/Vol] 47 U/L 7 [facility] Albumin [Mass/volume] in Ser um or Plasma by Bromocresol green (BCG) dye binding methoOrdered By: Roxane Bills on 01-22-2023 Albumin BCG dye [Mass/Vol] 3.7 g/dL 3.5-5.7 [facility] Alkaline phosphatase [Enzyma tic activity/volume] in Serum or PlasmaOrdered By: Roxane Bills on 01-22-2023 ALP [Catalytic activity/Vol] 169 U/L 34-104 [facility] Aspartate aminotransferase [ Enzymatic activity/volume] in Serum or PlasmaOrdered By: Roxane Bills on 01-22-2023 AST [Catalytic activity/Vol] 48 U/L 13-39 [facility] Basophils Auto (Bld) [#/Vol] Ordered By: Roxane Bills on 01-22-2023 Basophils (Bld) [#/Vol] 0.1 10*3/uL 0.0-0.2 [facility] Basophils/100 WBC Auto (Bld) Ordered By: Roxane Bills on 01-22-2023 Basophils/100 WBC (Bld) 0.5 % . [facility] Bilirubin.total [Mass/volume ] in Serum or PlasmaOrdered By: Roxane Bills on 01-22-2023 Bilirubin [Mass/Vol] 0.4 mg/dL 0.3-1.0 [facility] Calcium [Mass/volume] in Ser um or PlasmaOrdered By: Roxane Bills on 01-22-2023 Calcium [Mass/Vol] 8.6 mg/dL 8.6-10.3 [facility] Carbon dioxide, total [Moles /volume] in Serum or PlasmaOrdered By: Roxane Bills on 01-22-2023 CO2 [Moles/Vol] 32.1 mmol/L 21.0-31.0 [facility] Chloride [Moles/volume] in S logan or PlasmaOrdered By: Roxane Bills on 01-22-2023 Chloride [Moles/Vol] 100 mmol/L 98-107 [facility] Complete Blood Count Auto Di ffon 01-22-2023 Basophils (Bld) [#/Vol] 0.1 10*3/uL Normal 0.0-0.2 [facility] Comment on above: Result Comment: PERF ORMED BY: [facility] [address] [place] [address] PATHOLOGIST [employer] AQUILINO JACK M.D. Performed By: #### F E and TIBC, CLEOPATRA, CBC, CMP ####[address]#### KAPPA, MITCH SERUM ####[facility] , Basophils/100 WBC (Bld) 0.5 % Normal . [facility] Comment on above: Performed By: #### F E and TIBC, CLEOPATRA, CBC, CMP ####[address]#### KAPPA, MITCH SERUM ####[facility] , Eosinophils (Bld) [#/Vol] 0.5 10*3/uL High 0.0-0.45 [facility] Comment on above: Performed By: #### F E and TIBC, CLEOPATRA, CBC, CMP ####[address]#### KAPPA, MITCH SERUM ####[facility] , Eosinophils/100 WBC (Bld) 4.2 % Normal . [facility] Comment on above: Performed By: #### F E and TIBC, CLEOPATRA, CBC, CMP ####[place] [address] [place]#### KAPPA, MITCH SERUM ####[facility] , Erythrocyte distribution width (RBC) [Ratio] 14.2 % Normal 11.9-15.3 [facility] Comment on above: Performed By: #### F E and TIBC, CLEOPATRA, CBC, CMP ####[place] [address] [place]#### KAPPA, MITCH SERUM ####[facility] , Hematocrit (Bld) [Volume fraction] 37.8 % Normal 34.0-46.4 [facility] Comment on above: Performed By: #### F E and TIBC, CLEOPATRA, CBC, CMP ####[address]#### KAPPA, MITCH SERUM ####[facility] , Hemoglobin (Bld) [Mass/Vol] 12.3 g/dL Normal 11.8-15.4 [facility] Comment on above: Performed By: #### F E and TIBC, CLEOPATRA, CBC, CMP ####[address]#### KAPPA, MITCH SERUM ####[facility] , Lymphocytes (Bld) [#/Vol] 3.2 10*3/uL Normal 1.00-4.8 [facility] Comment on above: Performed By: #### F E and TIBC, CLEOPATRA, CBC, CMP ####[address]#### KAPPA, MITCH SERUM ####[facility] , Lymphocytes/100 WBC (Bld) 25.5 % Normal . [facility] Comment on above: Performed By: #### F E and TIBC, CLEOPATRA, CBC, CMP ####[address]#### KAPPA, MITCH SERUM ####[facility] , MCH (RBC) [Entitic mass] 30.0 pg Normal 24.7-34.3 [facility] Comment on above: Performed By: #### F E and TIBC, CLEOPATRA, CBC, CMP ####[place] [address] [place]#### KAPPA, MITCH SERUM ####[facility] , MCV (RBC) [Entitic vol] 91.9 fL Normal 80-100 [facility] Comment on above: Performed By: #### F E and TIBC, CLEOPATRA, CBC, CMP ####[facility] [address]#### KAPPA, MITCH SERUM ####[facility] , Mean Corpuscular HGB Conc 32.7 g/dL Normal 32.0-35.0 [facility] Comment on above: Performed By: #### F E and TIBC, CLEOPATRA, CBC, CMP ####[address]#### KAPPA, MITCH SERUM ####[facility] , Monocytes (Bld) [#/Vol] 0.7 10*3/uL Normal 0.0-0.8 [facility] Comment on above: Performed By: #### F E and TIBC, CLEOPATRA, CBC, CMP ####[address]#### KAPPA, MITCH SERUM ####[facility] , Monocytes/100 WBC (Bld) 5.6 % Normal . [facility] Comment on above: Performed By: #### F E and TIBC, CLEOPATRA, CBC, CMP ####[address]#### KAPPA, MITCH SERUM ####[facility] , Neutrophils (Bld) [#/Vol] 8.0 10*3/uL High 1.8-7.7 [facility] Comment on above: Performed By: #### F E and TIBC, CLEOPATRA, CBC, CMP ####[address]#### KAPPA, MITCH SERUM ####[facility] , Neutrophils/100 WBC (Bld) 64.2 % Normal . [facility] Comment on above: Performed By: #### F E and TIBC, CLEOPATRA, CBC, CMP ####[address]#### KAPPA, MITCH SERUM ####[facility] , NRBC% 0.0 /100{WBC} Normal 0-0.5 [facility] Comment on above: Performed By: #### F E and TIBC, CLEOPATRA, CBC, CMP ####[address]#### KAPPA, MITCH SERUM ####[facility] , Platelet mean volume (Bld) [Entitic vol] 7.0 fL Normal 6.3-10.7 [facility] Comment on above: Performed By: #### F E and TIBC, CLEOPATRA, CBC, CMP ####[address]#### KAPPA, MITCH SERUM ####[facility] , Platelets (Bld) [#/Vol] 299 10*3/uL Normal 150-450 [facility] Comment on above: Performed By: #### F E and TIBC, CLEOPATRA, CBC, CMP ####[address]#### KAPPA, MITCH SERUM ####[facility] , RBC (Bld) [#/Vol] 4.11 10*6/uL Normal 3.60-5.00 [facility] Comment on above: Performed By: #### F E and TIBC, CLEOPATRA, CBC, CMP ####[place] [address] [place]#### KAPPA, MITCH SERUM ####[facility] , WBC (Bld) [#/Vol] 12.4 10*3/uL High 3.8-11.6 [facility] Comment on above: Performed By: #### F E and TIBC, CLEOPATRA, CBC, CMP ####[address] [address]#### KAPPA, MITCH SERUM ####[facility] , Comprehensive Metabolic Pane heriberto 01-22-2023 Albumin [Mass/Vol] 3.7 g/dL Normal 3.5-5.7 [facility] Comment on above: Performed By: #### F E and TIBC, CLEOPATRA, CBC, CMP ####[address]#### KAPPA, MITCH SERUM ####[facility] , Albumin/Globulin [Mass ratio] 0.9 {ratio} Normal [facility] Comment on above: Performed By: #### F E and TIBC, CLEOPATRA, CBC, CMP ####[address]#### KAPPA, MITCH SERUM ####[facility] , ALP [Catalytic activity/Vol] 169 U/L High 34-104 [facility] Comment on above: Performed By: #### F E and TIBC, CLEOPATRA, CBC, CMP ####[address]#### KAPPA, MITCH SERUM ####[facility] , ALT [Catalytic activity/Vol] 47 U/L Normal 7-52 [facility] Comment on above: Performed By: #### F E and TIBC, CLEOPATRA, CBC, CMP ####[address]#### KAPPA, MITCH SERUM ####[facility] , Anion gap [Moles/Vol] 13.1 mmol/L Normal 6.0-15.0 [facility] Comment on above: Performed By: #### F E and TIBC, CLEOPATRA, CBC, CMP ####[place] [address] [place]#### KAPPA, MITCH SERUM ####[facility] , AST [Catalytic activity/Vol] 48 U/L High 13-39 [facility] Comment on above: Performed By: #### F E and TIBC, CLEOPATRA, CBC, CMP ####[place] [address] [place]#### KAPPA, MITCH SERUM ####[facility] , Bilirubin [Mass/Vol] 0.4 mg/dL Normal 0.3-1.0 [facility] Comment on above: Performed By: #### F E and TIBC, CLEOPATRA, CBC, CMP ####[address]#### KAPPA, MITCH SERUM ####[facility] , Calcium [Mass/Vol] 8.6 mg/dL Normal 8.6-10.3 [facility] Comment on above: Performed By: #### F E and TIBC, CLEOPATRA, CBC, CMP ####[address]#### KAPPA, MITCH SERUM ####[facility] , Chloride [Moles/Vol] 100 mmol/L Normal 98-107 [facility] Comment on above: Performed By: #### F E and TIBC, CLEOPATRA, CBC, CMP ####[address]#### KAPPA, MITCH SERUM ####[facility] , CO2 [Moles/Vol] 32.1 mmol/L High 21.0-31.0 [facility] Comment on above: Performed By: #### F E and TIBC, CLEOPATRA, CBC, CMP ####[place] [address] [place]#### KAPPA, MITCH SERUM ####[facility] , Creatinine [Mass/Vol] 1.37 mg/dL High 0.60-1.20 [facility] Comment on above: Performed By: #### F E and TIBC, CLEOPATRA, CBC, CMP ####[place] [address] [place]#### KAPPA, MITCH SERUM ####[facility] , Creatinine Clr Calc Pharmacy 44.97 Normal [facility] Comment on above: Performed By: #### F E and TIBC, CLEOPATRA, CBC, CMP ####[place] [address] [place]#### KAPPA, MITCH SERUM ####[facility] , GFR/1.73 sq M.predicted MDRD (S/P/Bld) [Vol rate/Area] 43.118 mL/min/{1.73_m2} Normal [facility] Comment on above: Performed By: #### F E and TIBC, CLEOPATRA, CBC, CMP ####[place] [address] [place]#### KAPPA, MITCH SERUM ####[facility] , Globulin (S) [Mass/Vol] 4.2 g/dL Normal [facility] Comment on above: Performed By: #### F E and TIBC, CLEOPATRA, CBC, CMP ####[place] [address] [place]#### KAPPA, MITCH SERUM ####[facility] , Glucose [Mass/Vol] 199 mg/dL High 70-100 [facility] Comment on above: Result Comment: [facility] Glucose Reference Range is dependent on time and content of last meal. Glucose of more than 200 mg/dL in a nonstressed, ambulatory subject supports the diagnosis of Diabetes Mellitus. ADA recommended reference range Performed By: #### F E and TIBC, CLEOPATRA, CBC, CMP ####[place] [address] [place]#### KAPPA, MITCH SERUM ####[facility] , Potassium [Moles/Vol] 4.2 mmol/L Normal 3.5-5.1 [facility] Comment on above: Performed By: #### F E and TIBC, CLEOPATRA, CBC, CMP ####[place] [address] [place]#### KAPPA, MITCH SERUM ####[facility] , Protein [Mass/Vol] 7.9 g/dL Normal 6.4-8.9 [facility] Comment on above: Performed By: #### F E and TIBC, CLEOPATRA, CBC, CMP ####[facility]#### KAPPA, MITCH SERUM ####[facility] , Sodium [Moles/Vol] 141 mmol/L Normal 136-145 [facility] Comment on above: Performed By: #### F E and TIBC, CLEOPATRA, CBC, CMP ####[address] [place] [address] [place]#### KAPPA, MITCH SERUM ####[facility] , Urea nitrogen [Mass/Vol] 13 mg/dL Normal 7-25 [facility] Comment on above: Performed By: #### F E and TIBC, CLEOPATRA, CBC, CMP ####[place] [address] [place]#### KAPPA, MITCH SERUM ####[facility] , Creatinine [Mass/volume] in Serum or PlasmaOrdered By: Roxane Bills on 01-22-2023 Creatinine [Mass/Vol] 1.37 mg/dL 0.60-1.20 [facility] Eosinophils Auto (Bld) [#/Vo l]Ordered By: Roxane Bills on 01-22-2023 Eosinophils (Bld) [#/Vol] 0.5 10*3/uL 0.0-0.45 [facility] Eosinophils/100 WBC Auto (Bl d)Ordered By: Roxane Bills on 01-22-2023 Eosinophils/100 WBC (Bld) 4.2 % . [facility] Erythrocyte distribution wid th Auto (RBC) [Ratio]Ordered By: Roxane Bills on 01-22-2023 Erythrocyte distribution width (RBC) [Ratio] 14.2 % 11.9-15.3 [facility] Ferritinon 01-22-2023 Ferritin [Mass/Vol] 192.2 ng/mL Normal 11.0-306.8 [facility] Comment on above: Result Comment: PERF ORMED BY: [facility] [address] [place] [address] PATHOLOGIST [employer] AQUILINO JACK M.D. Performed By: #### F E and TIBC, CLEOPATRA, CBC, CMP ####[address]#### KAPPA, MITCH SERUM ####[facility] , Ferritin [Mass/volume] in Se rum or PlasmaOrdered By: Roxane Bills on 01-22-2023 Ferritin [Mass/Vol] 192.2 ng/mL 11.0-306.8 [facility] Free K+L LT Chains, Qn, Son 01-22-2023 Free [place] Light Chains, S 237.9 mg/L High 3.3-19.4 [facility] Comment on above: Performed By: #### F E and TIBC, CLEOPATRA, CBC, CMP ####[address]#### KAPPA, MITCH SERUM ####[facility] , Free Lambda Light Chains, S 38.0 mg/L High 5.7-26.3 [facility] Comment on above: Performed By: #### F E and TIBC, CLEOPATRA, CBC, CMP ####[address]#### KAPPA, MITCH SERUM ####[facility] , [place]/Lambda Ratio, S 6.26 High 0.26-1.65 [facility] Comment on above: Result Comment: Perf ormed at: CB - [facility] [address] [id number] Iron Setter: Jhoan Rich PhD, Phone: [phone] PERFORMED BY: [facility] [address] [place] [address] PATHOLOGIST [employer] AQUILINO JACK M.D. Performed By: #### F E and TIBC, CLEOPATRA, CBC, CMP ####[address]#### KAPPA, MITCH SERUM ####[facility] , Globulin Calc (S) [Mass/Vol] Ordered By: Roxane Bills on 01-22-2023 Globulin (S) [Mass/Vol] 4.2 g/dL [facility] Glucose [Mass/volume] in Ser um or PlasmaOrdered By: Roxane Bills on 01-22-2023 Glucose [Mass/Vol] 199 mg/dL 70-100 [facility] Comment on above: ADA recommended refe rence rangeRandom Glucose Reference Range is dependent on time and content of last meal. Glucose of more than 200 mg/dL in a nonstressed, ambulatory subject supports the diagnosis of Diabetes Mellitus. Hematocrit Auto (Bld) [Volum e fraction]Ordered By: Roxane Bills on 01-22-2023 Hematocrit (Bld) [Volume fraction] 37.8 % 34.0-46.4 [facility] Hemoglobin [Mass/volume] in BloodOrdered By: Roxane Bills on 01-22-2023 Hemoglobin (Bld) [Mass/Vol] 12.3 g/dL 11.8-15.4 [facility] IgA [Mass/volume] in Serum o r PlasmaOrdered By: Roxane Bills on 01-22-2023 IgA [Mass/Vol] 669 mg/dL 87-352 [facility] IgG [Mass/volume] in Serum o r PlasmaOrdered By: Roxane Bills on 01-22-2023 IgG [Mass/Vol] 1764 mg/dL 586-1602 [facility] IgM [Mass/volume] in Serum o r PlasmaOrdered By: Roxane Bills on 01-22-2023 IgM [Mass/Vol] 107 mg/dL 26-217 [facility] Comment on above: Performed at: [address] [id number] Director: Jhoan Rich PhD, Phone: [phone] Immunofixation,Serumon 01-22 Immunofixation, Serum Abnormal . [facility] Comment on above: Result Comment: Immu nofixation shows IgG monoclonal protein with kappa light chain specificity. PLEASE NOTE: Samples from patients receiving DARZALEX(R) (daratumumab) or SARCLISA(R)(isatuximab-irfc) treatment can appear as an IgG kappa and mask a complete response (CR). If this patient is receiving these therapies, this MITCH assay interference can be removed by ordering test number [id number]- Immunofixation, Daratumumab-Specific, Serum or [id number]- Immunofixation, Isatuximab-Specific, Serum and submitting a new sample for testing or by calling the lab to add this test to the current sample. Performed By: #### F E and TIBC, CLEOPATRA, CBC, CMP ####[address]#### KAPPA, MITCH SERUM ####[facility] , Immunoglobulin A, Serum 669 mg/dL High 87-352 F [facility] Comment on above: Performed By: #### F E and TIBC, CLEOPATRA, CBC, CMP ####[place] [address] [place]#### KAPPA, MITCH SERUM ####[facility] , Immunoglobulin G 1764 mg/dL High 586-1602 [facility] Comment on above: Performed By: #### F E and TIBC, CLEOPATRA, CBC, CMP ####[address]#### KAPPA, MITCH SERUM ####[facility] , Immunoglobulin M, Serum 107 mg/dL Normal 26-217 [facility] Comment on above: Result Comment: Perf ormed at: - [facility] [address] [id number] Iron Setter: Jhoan Rich PhD, Phone: [phone] Performed By: #### F E and TIBC, CLEOPATRA, CBC, CMP ####[place] [address] [place]#### KAPPA, MITCH SERUM ####[facility] , Immunoglobulin light chains. kappa.free [Mass/volume] in SerumOrdered By: Roxane Bills on 01-22-2023 Immunoglobulin light chains.kappa.free (S) [Mass/Vol] 237.9 mg/L 3.3-19.4 [facility] Immunoglobulin light chains. kappa.free/Immunoglobulin light chains.lambda.free [MassOrdered By: Roxane Bills on 01-22-2023 Immunoglobulin light chains.kappa.free/Immun oglobulin light chains.lambda.free (S) [Mass ratio] 6.26 0.26-1.65 [facility] Comment on above: Performed at: [address] [id number] Director: Jhoan Rich PhD, Phone: [phone] Immunoglobulin light chains. lambda.free [Mass/volume] in Serum or PlasmaOrdered By: Roxane Bills on 01-22-2023 Immunoglobulin light chains.lambda.free [Mass/Vol] 38.0 mg/L 5.7-26.3 [facility] Iron [Mass/volume] in Serum or PlasmaOrdered By: Roxane Bills on 01-22-2023 Iron [Mass/Vol] 74 ug/dL 50-212 [facility] Iron and TIBC Profileon 01-11 % Iron Saturation 23.8 % Normal 20-50 [facility] Comment on above: Performed By: #### F E and TIBC, CLEOPATRA, CBC, CMP ####[facility] [place] [address] [place]#### KAPPA, MITCH SERUM ####[facility] , Iron [Mass/Vol] 74 ug/dL Normal 50-212 [facility] Comment on above: Performed By: #### F E and TIBC, CLEOPATRA, CBC, CMP ####[facility] [id number] [place] [address] [place]#### KAPPA, MITCH SERUM ####[facility] , Total Iron Binding Capacity 311 ug/dL Normal 255-450 [facility] Comment on above: Performed By: #### F E and TIBC, CLEOPATRA, CBC, CMP ####[address] [place] [address] [place]#### KAPPA, MITCH SERUM ####[facility] , Transferrin [Mass/Vol] 222 mg/dL Normal 203-362 [facility] Comment on above: Performed By: #### F E and TIBC, CLEOPATRA, CBC, CMP ####[facility] [id number]#### KAPPA, MITCH SERUM ####[facility] , Iron binding capacity [Mass/ volume] in Serum or PlasmaOrdered By: Roxane Bills on 01-22-2023 Iron binding capacity [Mass/Vol] 311 ug/dL 255-450 [facility] Iron saturation [Mass Fracti on] in Serum or PlasmaOrdered By: Roxane Bills on 01-22-2023 Iron saturation [Mass fraction] 23.8 % 20-50 [facility] Leukocytes [#/volume] correc shan for nucleated erythrocytes in Blood by Automated counOrdered By: Roxane Bills on 01-22-2023 WBC corrected for nucl RBC Auto (Bld) [#/Vol] 12.4 10*3/uL 3.8-11.6 [facility] Lymphocytes Auto (Bld) [#/Vo l]Ordered By: Roxane Bills on 01-22-2023 Lymphocytes (Bld) [#/Vol] 3.2 10*3/uL 1.00-4.8 [facility] Lymphocytes/100 WBC Auto (Bl d)Ordered By: Roxane Bills on 01-22-2023 Lymphocytes/100 WBC (Bld) 25.5 % . [facility] MCH Auto (RBC) [Entitic mass ]Ordered By: Roxane Bills on 01-22-2023 MCH (RBC) [Entitic mass] 30.0 pg 24.7-34.3 [facility] MCHC Auto (RBC) [Mass/Vol]Or dered By: Roxane Bills on 01-22-2023 MCHC (RBC) [Mass/Vol] 32.7 g/dL 32.0-35.0 [facility] MCV Auto (RBC) [Entitic vol] Ordered By: Roxane Bills on 01-22-2023 MCV (RBC) [Entitic vol] 91.9 fL 80-100 F [facility] Monocytes Auto (Bld) [#/Vol] Ordered By: Roxane Bills on 01-22-2023 Monocytes (Bld) [#/Vol] 0.7 10*3/uL 0.0-0.8 [facility] Monocytes/100 WBC Auto (Bld) Ordered By: Roxane Bills on 01-22-2023 Monocytes/100 WBC (Bld) 5.6 % . F [facility] Neutrophils Auto (Bld) [#/Vo l]Ordered By: Roxane Bills on 01-22-2023 Neutrophils (Bld) [#/Vol] 8.0 10*3/uL 1.8-7.7 [facility] Neutrophils/100 WBC Auto (Bl d)Ordered By: Roxane Bills on 01-22-2023 Neutrophils/100 WBC (Bld) 64.2 % . [facility] No Panel InformationOrdered By: Roxane Bills on 01-22-2023 Estimated GFR (CKD-EPI) 43.118 mL/Min [facility] Creatinine Clearance (Chem 44.97 [facility] Serum Immunofixation See comment . [facility] Comment on above: Immunofixation shows IgG monoclonal protein with kappalight chain specificity. PLEASE NOTE: Samples from patients receiving DARZALEX(R)(daratumumab) or SARCLISA(R)(isatuximab-[facility]) treatmentcan appear as an IgG kappa and mask a complete response(CR). If this patient is receiving these therapies, thisIFE assay interference can be removed by ordering testnumber [id number]- Immunofixation, Daratumumab-Specific,Serum or [id number]- Immunofixation, Isatuximab-Specific,Serum and submitting a new sample for testing or bycalling the lab to add this test to the current sample. Nucleated erythrocytes [Pres ence] in Blood by Automated countOrdered By: Roxane Bills on 01-22-2023 Nucleated RBC Auto Ql (Bld) 0.0 /100{WBC} 0-0.5 [facility] Platelet mean volume Auto (B ld) [Entitic vol]Ordered By: Roxane Bills on 01-22-2023 Platelet mean volume (Bld) [Entitic vol] 7.0 fL 6.3-10.7 [facility] Platelets Auto (Bld) [#/Vol] Ordered By: Roxane Bills on 01-22-2023 Platelets (Bld) [#/Vol] 299 10*3/uL 150-450 [facility] Potassium [Moles/volume] in Serum or PlasmaOrdered By: Roxane Bills on 01-22-2023 Potassium [Moles/Vol] 4.2 mmol/L 3.5-5.1 [facility] Protein [Mass/volume] in Ser um or PlasmaOrdered By: Roxane Bills on 01-22-2023 Protein [Mass/Vol] 7.9 g/dL 6.4-8.9 [facility] RBC Auto (Bld) [#/Vol]Ordere d By: Roxane Bills on 01-22-2023 RBC (Bld) [#/Vol] 4.11 10*6/uL 3.60-5.00 [facility] Serum or plasma albumin/glob ulin mass ratioOrdered By: Roxane Bills on 01-22-2023 Albumin/Globulin [Mass ratio] 0.9 {ratio} [facility] Serum or plasma anion gap de terminationOrdered By: Roxane Bills on 01-22-2023 Anion gap [Moles/Vol] 13.1 mmol/L 6.0-15.0 [facility] Sodium [Moles/volume] in Ser um or PlasmaOrdered By: Roxane Bills on 01-22-2023 Sodium [Moles/Vol] 141 mmol/L 136-145 [facility] Transferrin [Mass/volume] in Serum or PlasmaOrdered By: Roxane Bills on 01-22-2023 Transferrin [Mass/Vol] 222 mg/dL 203-362 [facility] Urea nitrogen [Mass/volume] in Serum or PlasmaOrdered By: Roxane Garibayse on 01-22-2023 Urea nitrogen [Mass/Vol] 13 mg/dL 7-25 [facility] WBC Auto (Bld) [#/Vol]Ordere d By: Roxane Garibayse on 01-22-2023 WBC (Bld) [#/Vol] 12.4 10*3/uL 3.8-11.6 [facility] Glucose Glucometer (BldC) [M ass/Vol]Ordered By: Nik Pineda on 12-18-2022 Glucose [Mass/Vol] 202 mg/dL [facility] Comment on above: Random Glucose Refer ence Range is dependent on time and content of last meal. Glucose of more than 200 mg/dL in a nonstressed, ambulatory subject supports the diagnosis of Diabetes Mellitus. Glucose Poct Glucometerson 0 12-18-2022 Commemt1 Glu2: Cleaned Meter Normal [facility] Comment on above: Result Comment: PERF ORMED BY: [place] [address] PATHOLOGIST [employer] AQUILINO JACK M.D. Performed By: #### G LULS ####Point of Care testing, Glucose [Mass/Vol] 202 mg/dL Normal [facility] Comment on above: Result Comment: [place] [facility] Glucose Reference Range is dependent on time and content of last meal. Glucose of more than 200 mg/dL in a nonstressed, ambulatory subject supports the diagnosis of Diabetes Mellitus. Performed By: #### G LULS ####Point of Care testing, No Panel InformationOrdered By: Nik Pineda on 12-18-2022 Bedside Glucose Comment Glu2: cleaned meter [facility] MR lumbar spine wo conon MR lumbar spine wo con [facility] Main [place] [address] [place], [place] [address] MRI Report Signed Patient: Kelsea Turcios MR#: [id number] 58 : 1960 Acct:[id number] Age/Sex: 62 / F ADM Date: 12/04/22 Loc: MR Room: Type: [facility] [address] Attending Dr: Jez Josue DO Copies to: Jez Josue DO Ordering Provider: Jez Josue DO Date of Service: 12/04/22 MR/MR lumbar spine wo con: M54.16 MR lumbar spine wo con 12/04/2022 6:47 AM SIGNS AND SYMPTOMS: Chronic low back pain with pain radiating into left lower extremity PROTOCOL: Multiplanar multisequence MR images of the lumbar spine were obtained without IV contrast COMPARISON: 09/14/2020 FINDINGS: There is 3 mm of anterolisthesis of L5 upon S1 which is unchanged. There is preservation of vertebral body heights. There is disc desiccation and mild disc height loss at L5-S1 and to a lesser extent L4-L5. Incidental note is made of a lipoma along the filum terminale which is unchanged. This is of no clinical significance. There is a suspected hemangioma in the left iliac spine which is unchanged. The conus terminates at the inferior endplate of the L1 vertebral body level. No epidural or paraspinous fluid collection is appreciated. At T12-L1: There is a normal disc, central canal, and neural foramen. At L1-L2: There is a normal disc, central canal, and neural foramen. At L2-L3: There is a normal disc, central canal, and neural foramen. At L3-L4: There is a broad-based disc bulge with facet hypertrophy. There is mild spinal canal stenosis with mild bilateral neural foraminal narrowing. This is unchanged. At L4-L5: There is a broad-based disc bulge with facet hypertrophy and facet effusions right greater than left. There is moderate narrowing of spinal canal with moderate right and mild left neural foraminal stenosis. This is unchanged. At L5-S1: There is a normal disc, central canal, and neural foramen. MR/MR lumbar spine wo con IMPRESSION: There is 3 mm of anterolisthesis of L5 upon S1 which is unchanged. At L3-L4: There is a broad-based disc bulge with facet hypertrophy. There is mild spinal canal stenosis with mild bilateral neural foraminal narrowing. This is unchanged. At L4-L5: There is a broad-based disc bulge with facet hypertrophy and facet effusions right greater than left. There is moderate narrowing of spinal canal with moderate right and mild left neural foraminal stenosis. This is unchanged. Impression dictated by: Harvey Barry M.D.12/04/2022 10:27 AM Dictation Location: [place] [address] Transcribed By: [facility] 12/04/22 1027 Dictated By: Harvey Barry II, MD 12/04/22 1020 Signed By: 12/04/22 1027 [facility] XR hip LT min 2V(w/wo pelvis )*on 09-16-2022 XR hip LT min 2V(w/wo pelvis)* [facility] [place] [address] XRay Report Signed Patient: Kelsea Turcios MR#: [id number] 58 : 1960 Acct:[id number] Age/Sex: 61 / F ADM Date: 09/16/22 Loc: XDSHC Room: Type: [facility] CLI Attending Dr: Peri Tyson DO Copies to: Peri Tyson DO Ordering Provider: Peri Tyson DO Date of Service: 09/16/22 XR/XR hip LT min 2V(w/wo pelvis)*: Left hip pain XR hip LT min 2V(w/wo pelvis)* 09/16/2022 11:59 AM SIGNS AND SYMPTOMS: Left hip pain radiating into left lower extremity PROTOCOL: Frontal radiograph the pelvis with frontal and frog-leg views of the left hip COMPARISON: None FINDINGS: The bony ring of the pelvis is intact. Mild degenerative changes are noted in the sacroiliac joints. There is no fracture or dislocation. Plaque formation is noted along the left greater trochanter. XR/XR hip LT min 2V(w/wo pelvis)* IMPRESSION: The hips are grossly intact. Mild degenerative changes are noted in the sacroiliac joints. Impression dictated by: Harvey Barry M.D.09/16/2022 4:17 PM Dictation Location: [place] [address] Transcribed By: [facility] 09/16/22 161 Dictated By: Harvey Barry II, MD 09/16/22 1612 Signed By: 09/16/22 1617 Normal [facility] Albumin [Mass/volume] in Ser um or Plasma by Bromocresol green (BCG) dye binding methoOrdered By: Jeannie Aguilar on 08-07-2022 Albumin BCG dye [Mass/Vol] 3.8 g/dL 3.5-5.7 [facility] C-Peptideon 08-07-2022 C-Peptide 1.6 ng/mL Normal 1.1-4.4 [facility] Comment on above: Result Comment: C-Pe ptide reference interval is for fasting patients. Performed at: CB - [facility] [address], [place], [place] [id number] Iron Setter: Jhoan Rich PhD, Phone: [phone] PERFORMED BY: [facility] [address] [place] [address] PATHOLOGIST [employer] AQUILINO JACK M.D. Performed By: #### R ENAL, LIPID, [id number] ####[facility] [id number]#### CPEP ####[facility] , Calcium [Mass/volume] in Ser um or PlasmaOrdered By: Jeannie Aguilar on 08-07-2022 Calcium [Mass/Vol] 9.2 mg/dL 8.6-10.3 [facility] Carbon dioxide, total [Moles /volume] in Serum or PlasmaOrdered By: Jeannie Aguilar on 08-07-2022 CO2 [Moles/Vol] 32.6 mmol/L 21.0-31.0 [facility] Chloride [Moles/volume] in S logan or PlasmaOrdered By: Jeannie Aguilar on 08-07-2022 Chloride [Moles/Vol] 104 mmol/L 98-107 [facility] Cholesterol [Mass/volume] in Serum or PlasmaOrdered By: Jeannie Aguilar on 08-07-2022 Cholesterol [Mass/Vol] 148 mg/dL 140-200 [facility] Comment on above: Chol less than 200 m g/dl low riskChol 201-239 mg/dl borderline riskChol 240 mg/dl and greater high risk Cholesterol in LDL Calc [Mas s/Vol]Ordered By: Jeannie Aguilar on 08-07-2022 Cholesterol in LDL [Mass/Vol] 82 mg/dL 0-100 [facility] Comment on above: LDL ATP III CLASSIFI CATIONLDL less than 100 mg/dL OptimalLDL 100-129 mg/dL Near or above optimalLDL 130-159 mg/dL Borderline highLDL 160-189 mg/dL HighLDL greater than 189 mg/dL Very high Cholesterol in VLDL Calc [Ma ss/Vol]Ordered By: Jeannie Aguilar on 08-07-2022 Cholesterol in VLDL [Mass/Vol] 15 mg/dL [facility] Creatinine [Mass/volume] in Serum or PlasmaOrdered By: Jeannie Aguilar on 08-07-2022 Creatinine [Mass/Vol] 1.65 mg/dL 0.60-1.20 [facility] Creatinine [Mass/volume] in UrineOrdered By: Jeannie Aguilar on 08-07-2022 Creatinine (U) [Mass/Vol] 51.0 mg/dL 11.0-20.0 [facility] Glucose [Mass/volume] in Ser um or PlasmaOrdered By: Jeannie Aguilar on 08-07-2022 Glucose [Mass/Vol] 71 mg/dL 70-100 [facility] Comment on above: ADA recommended refe rence rangeRandom Glucose Reference Range is dependent on time and content of last meal. Glucose of more than 200 mg/dL in a nonstressed, ambulatory subject supports the diagnosis of Diabetes Mellitus. Lipid Panelon 08-07-2022 Cholesterol [Mass/Vol] 148 mg/dL Normal 140-200 [facility] Comment on above: Order Comment: PT IS FASTING Result Comment: Chol less than 200 mg/dl low risk Chol 201-239 mg/dl borderline risk Chol 240 mg/dl and greater high risk Performed By: #### R ENAL, LIPID, [id number] ####[facility]#### CPEP ####[facility] , Cholesterol in HDL [Mass/Vol] 51 mg/dL Normal 35-85 [facility] Comment on above: Order Comment: PT IS FASTING Result Comment: HDL CHOL ATP-III CLASSIFICATION Cardiovascular Risk HDL > or equal to 60 mg/dL LOW HDL < 40 mg/dL HIGH Performed By: #### R ENAL, LIPID, [id number] ####[facility] [id number]#### CPEP ####[facility] , Cholesterol.total/Shahla sterol in HDL [Mass ratio] 2.9 {ratio} Normal <5.0 [facility] Comment on above: Order Comment: PT IS FASTING Performed By: #### R ENAL, LIPID, [id number] ####[address]#### CPEP ####[facility] , LDL Cholesterol,Calculated 82 mg/dL Normal 0-100 [facility] Comment on above: Order Comment: PT IS FASTING Result Comment: LDL ATP III CLASSIFICATION LDL less than 100 mg/dL Optimal LDL 100-129 mg/dL Near or above optimal LDL 130-159 mg/dL Borderline high LDL 160-189 mg/dL High LDL greater than 189 mg/dL Very high Performed By: #### R ENAL, LIPID, [id number] ####[address]#### CPEP ####[facility] , Triglyceride w/Reflex 75 mg/dL Normal 0-149 [facility] Comment on above: Order Comment: PT IS FASTING Result Comment: TRIG ATP III CLASSIFICATION TRIG less than 150 mg/dL Normal TRIG 150-199 mg/dL Borderline high TRIG 200-500 mg/dL High TRIG greater than 500 mg/dL Very high Standard traceable to the Center for Disease Conrtrol and Prevention (CDC) test method. Performed By: #### R ENAL, LIPID, [id number] ####[place] [address] [place]#### CPEP ####[facility] , VLDL CHOLESTEROL 15 mg/dL Normal [facility] Comment on above: Order Comment: PT IS FASTING Performed By: #### R ENAL, LIPID, [id number] ####[address]#### CPEP ####[facility] , MicroAlb Creat Ratio,Uon Albumin DL <= 20 mg/L (U) [Mass/Vol] mg/dL Normal 0.0-1.8 [facility] Comment on above: Performed By: #### U RMACRERAT ####[facility] [id number] [place] [address] [facility] Creatinine, Urine (Random) 51.0 mg/dL High 11.0-20.0 [facility] Comment on above: Performed By: #### U RMACRERAT ####[facility] Lan[address] [place] [address] [facility] Microalbumin/Creatinine Ratio Not performed Normal 0.0-30.0 [facility] Comment on above: Result Comment: PERF ORMED BY: [facility] [address] [place] [id number] PATHOLOGIST [employer] AQUILINO JACK M.D. Performed By: #### U RMACRERAT ####[facility] N[address] [place] [address] [facility] Microalbumin [Mass/volume] i n UrineOrdered By: Jeannie Aguilar on 08-07-2022 Albumin DL <= 20 mg/L (U) [Mass/Vol] mg/dL 0.0-1.8 [facility] No Panel InformationOrdered By: Jeannie Aguilar on 08-07-2022 C-Peptide 1.6 ng/mL 1.1-4.4 [facility] Comment on above: C-Peptide reference interval is for fasting patients.Performed at: - [facility] [id number] Director: Jhoan Rich PhD, Phone: [phone] Estimated GFR (CKD-EPI) 34.710 mL/Min [facility] Creatinine Clearance (Chem N/A [facility] Phosphate [Mass/volume] in S logan or PlasmaOrdered By: Jeannie Aguilar on 08-07-2022 Phosphate [Mass/Vol] 4.5 mg/dL 3.7-7.2 [facility] Potassium [Moles/volume] in Serum or PlasmaOrdered By: Jeannie Aguilar on 08-07-2022 Potassium [Moles/Vol] 4.8 mmol/L 3.5-5.1 [facility] Renal Function Panelon 08-07 Albumin [Mass/Vol] 3.8 g/dL Normal 3.5-5.7 [facility] Comment on above: Order Comment: PT IS FASTING Performed By: #### R ENAL, LIPID, [id number] #### [facility] [address] [place] [address] #### CPEP #### [facility] , Anion gap [Moles/Vol] 12.2 mmol/L Normal 6.0-15.0 [facility] Comment on above: Order Comment: PT IS FASTING Performed By: #### R ENAL, LIPID, [id number] #### [facility] [address] [place] [address] #### CPEP #### [facility] , Calcium [Mass/Vol] 9.2 mg/dL Normal 8.6-10.3 [facility] Comment on above: Order Comment: PT IS FASTING Performed By: #### R ENAL, LIPID, [id number] #### [facility] [address] [place] [address] #### CPEP #### [facility] , Chloride [Moles/Vol] 104 mmol/L Normal 98-107 [facility] Comment on above: Order Comment: PT IS FASTING Performed By: #### R ENAL, LIPID, [id number] #### [facility] [address] [place] [address] #### CPEP #### [facility] , CO2 [Moles/Vol] 32.6 mmol/L High 21.0-31.0 [facility] Comment on above: Order Comment: PT IS FASTING Performed By: #### R ENAL, LIPID, [id number] #### [facility] [address] [place] [address] [place] #### CPEP #### [facility] , Creatinine [Mass/Vol] 1.65 mg/dL High 0.60-1.20 [facility] Comment on above: Order Comment: PT IS FASTING Performed By: #### R ENAL, LIPID, [id number] #### [facility] [address] [place] [address] [place] #### CPEP #### [facility] , GFR/1.73 sq M.predicted MDRD (S/P/Bld) [Vol rate/Area] 34.710 mL/min/{1.73_m2} Normal [facility] Comment on above: Order Comment: PT IS FASTING Performed By: #### R ENAL, LIPID, [id number] #### [facility] [address] [place] [address] #### CPEP #### [facility] , Glucose [Mass/Vol] 71 mg/dL Normal 70-100 [facility] Comment on above: Order Comment: PT IS FASTING Result Comment: [facility] Glucose Reference Range is dependent on time and content of last meal. Glucose of more than 200 mg/dL in a nonstressed, ambulatory subject supports the diagnosis of Diabetes Mellitus. ADA recommended reference range Performed By: #### R ENAL, LIPID, [id number] #### [facility] [address] [place] [address] [place] #### CPEP #### [facility] , Phosphate [Mass/Vol] 4.5 mg/dL Normal 3.7-7.2 [facility] Comment on above: Order Comment: PT IS FASTING Performed By: #### R ENAL, LIPID, [id number] #### [facility] [address] [place] [address] [place] #### CPEP #### [facility] , Potassium [Moles/Vol] 4.8 mmol/L Normal 3.5-5.1 [facility] Comment on above: Order Comment: PT IS FASTING Performed By: #### R ENAL, LIPID, [id number] #### [facility] [address] [place] [address] [place] #### CPEP #### [facility] , Sodium [Moles/Vol] 144 mmol/L Normal 136-145 [facility] Comment on above: Order Comment: PT IS FASTING Performed By: #### R ENAL, LIPID, [id number] #### [facility] [address] #### CPEP #### [facility] , Urea nitrogen [Mass/Vol] 22 mg/dL Normal 7-25 [facility] Comment on above: Order Comment: PT IS FASTING Performed By: #### R ENAL, LIPID, [id number] #### [facility] [address] #### CPEP #### [facility] , Serum or plasma anion gap de terminationOrdered By: Jeannie Aguilar on 08-07-2022 Anion gap [Moles/Vol] 12.2 mmol/L 6.0-15.0 [facility] Serum or plasma high density lipoprotein (HDL) cholesterol measurementOrdered By: Jeannie Aguilar on 08-07-2022 Cholesterol in HDL [Mass/Vol] 51 mg/dL 35-85 [facility] Comment on above: HDL CHOL ATP-III CLA SSIFICATION Cardiovascular RiskHDL > or equal to 60 mg/dL LOWHDL < 40 mg/dL HIGH Serum or plasma total choles terol/high density lipoprotein (HDL) cholesterol mass ratOrdered By: Jeannie Aguilar on 08-07-2022 Cholesterol.total/Shahla sterol in HDL [Mass ratio] 2.9 {ratio} <5.0 [facility] Sodium [Moles/volume] in Ser um or PlasmaOrdered By: Jeannie Aguilar on 08-07-2022 Sodium [Moles/Vol] 144 mmol/L 136-145 [facility] Triglyceride [Mass/volume] i n Serum or PlasmaOrdered By: Jeannie Aguilar on 08-07-2022 Triglyceride [Mass/Vol] 75 mg/dL 0-149 [facility] Comment on above: TRIG ATP III CLASSIF ICATIONTRIG less than 150 mg/dL NormalTRIG 150-199 mg/dL Borderline highTRIG 200-500 mg/dL High TRIG greater than 500 mg/dL Very highStandard traceable to the Center for Disease Conrtrol and Prevention (CDC) test method. Urea nitrogen [Mass/volume] in Serum or PlasmaOrdered By: Jeannie Aguilar on 08-07-2022 Urea nitrogen [Mass/Vol] 22 mg/dL 7-25 [facility] Urine microalbumin/creatinin e mass ratioOrdered By: Jeannie Aguilar on 08-07-2022 Albumin/Creatinine DL <= 20 mg/L (U) [Mass ratio] TNP [facility] Comment on above: Test not performed Vitamin D 25 Hydroxy Totalon 08-07-2022 Vitamin D 25 Hydroxy Total 47.6 ng/mL Normal 30-100 [facility] Comment on above: Order Comment: PT IS FASTING Result Comment: KOBI MIN D STATUS 25([place])VITAMIN D RANGE (ng/mL) Deficient <20 Insufficient 20 to <30 Sufficient 30 to 100 Reference: Vanessa Negron, Caesar ASIF, et al. Evaluation,treatment, and prevention of vitamin D deficiency; an Endocrine Society clinical practice guideline. JCEM. 2010; 96(7):1911-30. PERFORMED BY: [facility] [address] [place] [address] PATHOLOGIST [employer] AQUILINO JACK M.D. Performed By: #### R ENAL, LIPID, [id number] ####[facility] [id number]#### CPEP ####[facility] , Vitamin D+Metabolites [Mass/ volume] in Serum or PlasmaOrdered By: Jeannie Aguilar on 08-07-2022 Vitamin D+Metabolites [Mass/Vol] 47.6 ng/mL 30-100 [facility] Comment on above: VITAMIN D STATUS 25( [place])VITAMIN D RANGE (ng/mL) Deficient <20 Insufficient 20 to <30Sufficient 30 to 100Reference: Vanessa Negron, Caesar ASIF et al. Evaluation,treatment, and prevention of vitamin D deficiency; an Endocrine Society clinical practice guideline. JCEM. 2010; 96(7):1911-30. US venous duplex LE BIon US venous duplex LE BI [facility] Main [address] [address] Ultrasound Report Signed Patient: Kelsea Turcios MR#: [id number] 58 : 1960 Acct:[id number] Age/Sex: 61 / F ADM Date: 07/07/22 Loc: [facility] Room: Type: [facility] Attending Dr: Domenico Whitmore MD Ordering Provider: Domenico Whitmore MD Date of Service: 07/07/22 US/US venous duplex LE BI: [id number] Copies to: Domenico Whitmore MD Bilateral lower extremity full functional venous duplex examination Indication for study: Swollen legs PROCEDURE: Color-flow duplex scanning is used to interrogate the venous anatomy of both lower extremities. There is no evidence for deep vein thrombosis in either leg. Bilaterally the common femoral veins, femoral veins, popliteal veins show good compressibility, color-flow, and augmentation. In the patient's right lower extremity with Valsalva there is mild unsustained reflux at the saphenofemoral junction. The saphenous vein is 9 mm just below the saphenofemoral junction but after that is normal in size at 3 to 4 mm. Small varicosities are noted in the right medial thigh measuring 3 mm in diameter. No significant meat blender incompetence is noted. There is no lesser saphenous vein incompetence in the lesser saphenous vein is normal in size. In the patient's left lower extremity there is 4 seconds of reflux in the common femoral vein emptying into the greater saphenous vein. The greater saphenous vein is similar in size to that of the right side. It is 9 mm below the saphenofemoral junction but then is 3 to 4 mm throughout its course in the limb. There is an anterior saphenous branch which is 4 to 6 mm in diameter and then becomes tortuous in the distal thigh. More varicosities are noted in the left leg in measure 2 to 3 mm in diameter. No significant meat blender incompetence is noted. The lesser saphenous vein is normal in size. US/US venous duplex LE BI IMPRESSION: No evidence for deep vein thrombosis in either lower extremity. Minimal venous valvular incompetence is noted. There are more varicosities in the left leg than in the right leg Impression dictated by: Domenico Whitmore M.D.08/04/2022 1:47 PM Dictation Location: [place] [address] Tech: Eve Ramos Transcribed By: RACHEL 08/04/22 134 Dictated By: Domenico Whitmore MD 08/04/22 134 Signed By: 08/04/22 134 Normal [facility] Albumin [Mass/volume] in Ser um or PlasmaOrdered By: Shanae Galicia on 07-22-2022 Albumin [Mass/Vol] 3.2 g/dL 2.9-4.4 [facility] Basophils Auto (Bld) [#/Vol] Ordered By: Shanae Galicia on 07-22-2022 Basophils (Bld) [#/Vol] 0.0 10*3/uL 0.0-0.2 [facility] Basophils/100 WBC Auto (Bld) Ordered By: Shanae Galicia on 07-22-2022 Basophils/100 WBC (Bld) 0.5 % . [facility] Complete Blood Count Auto Di ffon 07-22-2022 Basophils (Bld) [#/Vol] 0.0 10*3/uL Normal 0.0-0.2 [facility] Comment on above: Result Comment: PERF ORMED BY: [facility] [address] [place] [id number] PATHOLOGIST [employer] AQUILINO JACK M.D. Performed By: #### I FE SERUM, KAPPA, SPE ####[facility] ,#### CLEOPATRA, FE and TIBC, CBC ####[facility] [address] [place] [id number] [facility] Basophils/100 WBC (Bld) 0.5 % Normal . [facility] Comment on above: Performed By: #### I FE SERUM, KAPPA, SPE ####[facility] ,#### CLEOPATRA, FE and TIBC, CBC ####[address] Eosinophils (Bld) [#/Vol] 0.6 10*3/uL High 0.0-0.45 [facility] Comment on above: Performed By: #### I FE SERUM, KAPPA, SPE ####[facility] ,#### CLEOPATRA, FE and TIBC, CBC ####[address] Eosinophils/100 WBC (Bld) 6.1 % Normal . [facility] Comment on above: Performed By: #### I FE SERUM, KAPPA, SPE ####[facility] ,#### CLEOPATRA, FE and TIBC, CBC ####[address] Erythrocyte distribution width (RBC) [Ratio] 14.7 % Normal 11.9-15.3 [facility] Comment on above: Performed By: #### I FE SERUM, KAPPA, SPE ####[facility] ,#### CLEOPATRA, FE and TIBC, CBC ####[address] Hematocrit (Bld) [Volume fraction] 37.1 % Normal 34.0-46.4 [facility] Comment on above: Performed By: #### I FE SERUM, KAPPA, SPE ####[facility] ,#### CLEOPATRA, FE and TIBC, CBC ####[address] Hemoglobin (Bld) [Mass/Vol] 12.1 g/dL Normal 11.8-15.4 [facility] Comment on above: Performed By: #### I FE SERUM, KAPPA, SPE ####[facility] ,#### CLEOPATRA, FE and TIBC, CBC ####[address] Lymphocytes (Bld) [#/Vol] 2.6 10*3/uL Normal 1.00-4.8 [facility] Comment on above: Performed By: #### I FE SERUM, KAPPA, SPE ####[facility] ,#### CLEOPATRA, FE and TIBC, CBC ####[address] Lymphocytes/100 WBC (Bld) 25.2 % Normal . [facility] Comment on above: Performed By: #### I FE SERUM, KAPPA, SPE ####[facility] ,#### CLEOPATRA, FE and TIBC, CBC ####[address] MCH (RBC) [Entitic mass] 29.6 pg Normal 24.7-34.3 [facility] Comment on above: Performed By: #### I FE SERUM, KAPPA, SPE ####[facility] ,#### CLEOPATRA, FE and TIBC, CBC ####[address] MCV (RBC) [Entitic vol] 90.4 fL Normal 80-100 [facility] Comment on above: Performed By: #### I FE SERUM, KAPPA, SPE ####[facility] ,#### CLEOPATRA, FE and TIBC, CBC ####[address] Mean Corpuscular HGB Conc 32.7 g/dL Normal 32.0-35.0 [facility] Comment on above: Performed By: #### I FE SERUM, KAPPA, SPE ####[facility] ,#### CLEOPATRA, FE and TIBC, CBC ####[address] Monocytes (Bld) [#/Vol] 0.7 10*3/uL Normal 0.0-0.8 [facility] Comment on above: Performed By: #### I FE SERUM, KAPPA, SPE ####[facility] ,#### CLEOPATRA, FE and TIBC, CBC ####[address] Monocytes/100 WBC (Bld) 7.0 % Normal . [facility] Comment on above: Performed By: #### I FE SERUM, KAPPA, SPE ####[facility] ,#### CLEOPATRA, FE and TIBC, CBC ####[address] Neutrophils (Bld) [#/Vol] 6.2 10*3/uL Normal 1.8-7.7 [facility] Comment on above: Performed By: #### I FE SERUM, KAPPA, SPE ####[facility] ,#### CLEOPATRA, FE and TIBC, CBC ####[address] Neutrophils/100 WBC (Bld) 61.2 % Normal . [facility] Comment on above: Performed By: #### I FE SERUM, KAPPA, SPE ####[facility] ,#### CLEOPATRA, FE and TIBC, CBC ####[address] NRBC% 0.0 /100{WBC} Normal 0-0.5 [facility] Comment on above: Performed By: #### I FE SERUM, KAPPA, SPE ####[facility] ,#### CLEOPATRA, FE and TIBC, CBC ####[address] Platelet mean volume (Bld) [Entitic vol] 7.4 fL Normal 6.3-10.7 [facility] Comment on above: Performed By: #### I FE SERUM, KAPPA, SPE ####[facility] ,#### CLEOPATRA, FE and TIBC, CBC ####[address] Platelets (Bld) [#/Vol] 267 10*3/uL Normal 150-450 [facility] Comment on above: Performed By: #### I FE SERUM, KAPPA, SPE ####[facility] ,#### CLEOPATRA, FE and TIBC, CBC ####[place] [id number] [address] RBC (Bld) [#/Vol] 4.10 10*6/uL Normal 3.60-5.00 [facility] Comment on above: Performed By: #### I FE SERUM, KAPPA, SPE ####[facility] ,#### CLEOPATRA, FE and TIBC, CBC ####[place] [address] [address] WBC (Bld) [#/Vol] 10.2 10*3/uL Normal 3.8-11.6 [facility] Comment on above: Performed By: #### I FE SERUM, KAPPA, SPE ####[facility] ,#### CLEOPATRA, FE and TIBC, CBC ####[address] Eosinophils Auto (Bld) [#/Vo l]Ordered By: Shanae Galicia on 07-22-2022 Eosinophils (Bld) [#/Vol] 0.6 10*3/uL 0.0-0.45 [facility] Eosinophils/100 WBC Auto (Bl d)Ordered By: Shanae Galicia on 07-22-2022 Eosinophils/100 WBC (Bld) 6.1 % . [facility] Erythrocyte distribution wid th Auto (RBC) [Ratio]Ordered By: Shanae Galicia on 07-22-2022 Erythrocyte distribution width (RBC) [Ratio] 14.7 % 11.9-15.3 [facility] Ferritinon 07-22-2022 Ferritin [Mass/Vol] 284.4 ng/mL Normal 11.0-306.8 [facility] Comment on above: Order Comment: PT IS FASTING Result Comment: PERF ORMED BY: [facility] [address] [place] [address] PATHOLOGIST [employer] AQUILINO JACK M.D. Performed By: #### I FE SERUM, KAPPA, SPE ####[facility] ,#### CLEOPATRA, FE and TIBC, CBC ####[address] Ferritin [Mass/volume] in Se rum or PlasmaOrdered By: Shanae Galicia on 07-22-2022 Ferritin [Mass/Vol] 284.4 ng/mL 11.0-306.8 [facility] Free K+L LT Chains, Qn, Son 07-22-2022 Free [place] Light Chains, S 120.4 mg/L High 3.3-19.4 [facility] Comment on above: Performed By: #### I FE SERUM, KAPPA, SPE ####[facility] ,#### CLEOPATRA, FE and TIBC, CBC ####[address] Free Lambda Light Chains, S 32.9 mg/L High 5.7-26.3 [facility] Comment on above: Performed By: #### I FE SERUM, KAPPA, SPE ####[facility] ,#### CLEOPATRA, FE and TIBC, CBC ####[address] [place]/Lambda Ratio, S 3.66 High 0.26-1.65 [facility] Comment on above: Result Comment: Perf ormed at: [facility] - [facility] [address] [id number] Iron Setter: Jhoan Rich PhD, Phone: [phone] PERFORMED BY: [facility] [address] [place] [address] PATHOLOGIST [employer] AQUILINO JACK M.D. Performed By: #### I FE SERUM, KAPPA, SPE ####[facility] ,#### CLEOPATRA, FE and TIBC, CBC ####[address] Hematocrit Auto (Bld) [Volum e fraction]Ordered By: Shanae Israelholly on 07-22-2022 Hematocrit (Bld) [Volume fraction] 37.1 % 34.0-46.4 [facility] Hemoglobin [Mass/volume] in BloodOrdered By: Shanae Galicia on 07-22-2022 Hemoglobin (Bld) [Mass/Vol] 12.1 g/dL 11.8-15.4 [facility] IgA [Mass/volume] in Serum o r PlasmaOrdered By: Shanae Sharmaemerita on 07-22-2022 IgA [Mass/Vol] 656 mg/dL 87-352 [facility] IgG [Mass/volume] in Serum o r PlasmaOrdered By: Shanae Sharmaemerita on 07-22-2022 IgG [Mass/Vol] 1303 mg/dL 586-1602 [facility] IgM [Mass/volume] in Serum o r PlasmaOrdered By: Shanae Sharmaemerita on 07-22-2022 IgM [Mass/Vol] 91 mg/dL 26-217 [facility] Comment on above: Performed at: [address] [id number] Director: Jhoan Rich PhD, Phone: [phone] Immunofixation,Serumon 07-22 Immunofixation, Serum Abnormal . [facility] Comment on above: Result Comment: Immu nofixation shows IgG monoclonal protein with kappa light chain specificity. PLEASE NOTE: Samples from patients receiving DARZALEX(R) (daratumumab) or SARCLISA(R)(isatuximab-irfc) treatment can appear as an IgG kappa and mask a complete response (CR). If this patient is receiving these therapies, this MITCH assay interference can be removed by ordering test number [id number]- Immunofixation, Daratumumab-Specific, Serum or [id number]- Immunofixation, Isatuximab-Specific, Serum and submitting a new sample for testing or by calling the lab to add this test to the current sample. Performed By: #### I FE SERUM, KAPPA, SPE ####[facility] ,#### CLEOPATRA, FE and TIBC, CBC ####[facility] [place] [id number] [facility] Immunoglobulin A, Serum 656 mg/dL High 87-352 [facility] Comment on above: Performed By: #### I FE SERUM, KAPPA, SPE ####[facility] ,#### CLEOPATRA, FE and TIBC, CBC ####[place] [id number] [facility] Immunoglobulin G 1303 mg/dL Normal 586-1602 [facility] Comment on above: Performed By: #### I FE SERUM, KAPPA, SPE ####[facility] ,#### CLEOPATRA, FE and TIBC, CBC ####[address] Immunoglobulin M, Serum 91 mg/dL Normal 26-217 [facility] Comment on above: Result Comment: Perf ormed at: [facility] [address] [place], [place] [id number] Iron Setter: Jhoan Rich PhD, Phone: [phone] Performed By: #### I FE SERUM, KAPPA, SPE ####[facility] ,#### CLEOPATRA, FE and TIBC, CBC ####[place] [id number] [facility] Immunoglobulin light chains. kappa.free [Mass/volume] in SerumOrdered By: Shanae Galicia on 07-22-2022 Immunoglobulin light chains.kappa.free (S) [Mass/Vol] 120.4 mg/L 3.3-19.4 [facility] Immunoglobulin light chains. kappa.free/Immunoglobulin light chains.lambda.free [MassOrdered By: Shanae Galicia on 07-22-2022 Immunoglobulin light chains.kappa.free/Immun oglobulin light chains.lambda.free (S) [Mass ratio] 3.66 0.26-1.65 [facility] Comment on above: Performed at: [facility] [id number] [place], [place] [id number] Director: Jhoan Rich PhD, Phone: [phone] Immunoglobulin light chains. lambda.free [Mass/volume] in Serum or PlasmaOrdered By: Shanae Galicia on 07-22-2022 Immunoglobulin light chains.lambda.free [Mass/Vol] 32.9 mg/L 5.7-26.3 [facility] Iron [Mass/volume] in Serum or PlasmaOrdered By: Shanae Galicia on 07-22-2022 Iron [Mass/Vol] 67 ug/dL 50-212 [facility] Iron and TIBC Profileon 07-12 % Iron Saturation 23.1 % Normal 20-50 [facility] Comment on above: Order Comment: PT IS FASTING Performed By: #### I FE SERUM, KAPPA, SPE ####[facility] ,#### CLEOPATRA, FE and TIBC, CBC ####[address] [address] [facility] Iron [Mass/Vol] 67 ug/dL Normal 50-212 [facility] Comment on above: Order Comment: PT IS FASTING Performed By: #### I FE SERUM, KAPPA, SPE ####[facility] ,#### CLEOPATRA, FE and TIBC, CBC ####[address] [address] [facility] Total Iron Binding Capacity 290 ug/dL Normal 255-450 [facility] Comment on above: Order Comment: PT IS FASTING Performed By: #### I FE SERUM, KAPPA, SPE ####[facility] ,#### CLEOPATRA, FE and TIBC, CBC ####[address] [address] [facility] Transferrin [Mass/Vol] 207 mg/dL Normal 203-362 [facility] Comment on above: Order Comment: PT IS FASTING Performed By: #### I FE SERUM, KAPPA, SPE ####[facility] ,#### CLEOPATRA, FE and TIBC, CBC ####[address] [address] [facility] Iron binding capacity [Mass/ volume] in Serum or PlasmaOrdered By: Shanae Galicia on 07-22-2022 Iron binding capacity [Mass/Vol] 290 ug/dL 255-450 [facility] Iron saturation [Mass Fracti on] in Serum or PlasmaOrdered By: Shanae Galicia on 07-22-2022 Iron saturation [Mass fraction] 23.1 % 20-50 [facility] Laboratory - Chemistry and C hemistry - challengeOrdered By: Shanae Galicia on 07-22-2022 Protein [Mass/Vol] 0.5 g/dL Not Observed [facility] Leukocytes [#/volume] correc shan for nucleated erythrocytes in Blood by Automated counOrdered By: Shanae Galicia on 07-22-2022 WBC corrected for nucl RBC Auto (Bld) [#/Vol] 10.2 10*3/uL 3.8-11.6 [facility] Lymphocytes Auto (Bld) [#/Vo l]Ordered By: Shanae Galicia on 07-22-2022 Lymphocytes (Bld) [#/Vol] 2.6 10*3/uL 1.00-4.8 [facility] Lymphocytes/100 WBC Auto (Bl d)Ordered By: Shanae Galicia on 07-22-2022 Lymphocytes/100 WBC (Bld) 25.2 % . [facility] MCH Auto (RBC) [Entitic mass ]Ordered By: Shanae Galicia on 07-22-2022 MCH (RBC) [Entitic mass] 29.6 pg 24.7-34.3 [facility] MCHC Auto (RBC) [Mass/Vol]Or dered By: Shanae Galicia on 07-22-2022 MCHC (RBC) [Mass/Vol] 32.7 g/dL 32.0-35.0 [facility] MCV Auto (RBC) [Entitic vol] Ordered By: Shanae Galicia on 07-22-2022 MCV (RBC) [Entitic vol] 90.4 fL 80-100 F [facility] Monocytes Auto (Bld) [#/Vol] Ordered By: Shanae Galicia on 07-22-2022 Monocytes (Bld) [#/Vol] 0.7 10*3/uL 0.0-0.8 [facility] Monocytes/100 WBC Auto (Bld) Ordered By: Shanae Galicia on 07-22-2022 Monocytes/100 WBC (Bld) 7.0 % . F [facility] Neutrophils Auto (Bld) [#/Vo l]Ordered By: Shanae Galicia on 07-22-2022 Neutrophils (Bld) [#/Vol] 6.2 10*3/uL 1.8-7.7 [facility] Neutrophils/100 WBC Auto (Bl d)Ordered By: Shanae Galicia on 07-22-2022 Neutrophils/100 WBC (Bld) 61.2 % . [facility] No Panel InformationOrdered By: Shanae Galicia on 07-22-2022 Protein Electrophoresis Note See comment . [facility] Comment on above: Protein electrophore sis scan will follow via computer,mail, or petroleum engineering professor delivery.Performed at: [place] [id number] Director: Jhoan Rich PhD, Phone: [phone] Serum Immunofixation See comment . [facility] Comment on above: Immunofixation shows IgG monoclonal protein with kappalight chain specificity. PLEASE NOTE: Samples from patients receiving DARZALEX(R)(daratumumab) or SARCLISA(R)(isatuximab-irf) treatmentcan appear as an IgG kappa and mask a complete response(CR). If this patient is receiving these therapies, thisIFE assay interference can be removed by ordering testnumber [id number]- Immunofixation, Daratumumab-Specific,Serum or [id number]- Immunofixation, Isatuximab-Specific,Serum and submitting a new sample for testing or bycalling the lab to add this test to the current sample. Nucleated erythrocytes [Pres ence] in Blood by Automated countOrdered By: Shanae Galicia on 07-22-2022 Nucleated RBC Auto Ql (Bld) 0.0 /100{WBC} 0-0.5 [facility] Platelet mean volume Auto (B ld) [Entitic vol]Ordered By: Shanae Galicia on 07-22-2022 Platelet mean volume (Bld) [Entitic vol] 7.4 fL 6.3-10.7 [facility] Platelets Auto (Bld) [#/Vol] Ordered By: Shanae Galicia on 07-22-2022 Platelets (Bld) [#/Vol] 267 10*3/uL 150-450 [facility] Protein Electrophoresis, Ser umon 07-22-2022 Albumin [Mass/Vol] 3.2 g/dL Normal 2.9-4.4 [facility] Comment on above: Performed By: #### I FE SERUM, KAPPA, SPE ####[facility] ,#### CLEOPATRA, FE and TIBC, CBC ####[address] Albumin/Globulin [Mass ratio] 0.8 {ratio} Normal 0.7-1.7 [facility] Comment on above: Performed By: #### I FE SERUM, KAPPA, SPE ####[facility] ,#### CLEOPATRA, FE and TIBC, CBC ####[address] Tbiug-7-Wailfgjg 0.3 g/dL Normal 0.0-0.4 [facility] Comment on above: Performed By: #### I FE SERUM, KAPPA, SPE ####[facility] ,#### CLEOPATRA, FE and TIBC, CBC ####[place] [address] [place] Cjazs-2-Vpxbacak 1.0 g/dL Normal 0.4-1.0 [facility] Comment on above: Performed By: #### I FE SERUM, KAPPA, SPE ####[facility] ,#### CLEOPATRA, FE and TIBC, CBC ####[place] [address] [place] Beta Globulin 1.2 g/dL Normal 0.7-1.3 [facility] Comment on above: Performed By: #### I FE SERUM, KAPPA, SPE ####[facility] ,#### CLEOPATRA, FE and TIBC, CBC ####[place] [address] [place] Gamma Globulin 1.4 g/dL Normal 0.4-1.8 [facility] Comment on above: Performed By: #### I FE SERUM, KAPPA, SPE ####[facility] ,#### CLEOPATRA, FE and TIBC, CBC ####[address] Globulin (S) [Mass/Vol] 3.9 g/dL Normal 2.2-3.9 [facility] Comment on above: Performed By: #### I FE SERUM, KAPPA, SPE ####[facility] ,#### CLEOPATRA, FE and TIBC, CBC ####[address] M-Damien 0.5 g/dL High Not Observed [facility] Comment on above: Performed By: #### I FE SERUM, KAPPA, SPE ####[facility] ,#### CLEOPATRA, FE and TIBC, CBC ####[address] Protein [Mass/Vol] 7.1 g/dL Normal 6.0-8.5 [facility] Comment on above: Performed By: #### I FE SERUM, KAPPA, SPE ####[facility] ,#### CLEOPATRA, FE and TIBC, CBC ####[address] SPE-Note Normal . [facility] Comment on above: Result Comment: Prot ein electrophoresis scan will follow via computer, mail, or petroleum engineering professor delivery. Performed at: - [address], [place], [place] [id number] Iron Setter: Jhoan Rich PhD, Phone: [phone] Performed By: #### I FE SERUM, KAPPA, SPE ####[facility] ,#### CLEOPATRA, FE and TIBC, CBC ####[address] Protein [Mass/volume] in Ser um or PlasmaOrdered By: Shanae Galicia on 07-22-2022 Protein [Mass/Vol] 7.1 g/dL 6.0-8.5 [facility] RBC Auto (Bld) [#/Vol]Ordere d By: Shanae Galicia on 07-22-2022 RBC (Bld) [#/Vol] 4.10 10*6/uL 3.60-5.00 [facility] Serum globulin measurement ( mass/volume)Ordered By: Shanae Galicia on 07-22-2022 Globulin (S) [Mass/Vol] 3.9 g/dL 2.2-3.9 [facility] Serum or plasma albumin/glob ulin mass ratioOrdered By: Shanae Galicia on 07-22-2022 Albumin/Globulin [Mass ratio] 0.8 {ratio} 0.7-1.7 [facility] Serum or plasma alpha 1 glob ulin measurement by electrophoresis (mass/volume)Ordered By: Shanae Galicia on 07-22-2022 Alpha 1 globulin Elph [Mass/Vol] 0.3 g/dL 0.0-0.4 [facility] Serum or plasma alpha 2 glob ulin measurement by electrophoresis (mass/volume)Ordered By: Shanae Galicia on 07-22-2022 Alpha 2 globulin Elph [Mass/Vol] 1.0 g/dL 0.4-1.0 [facility] Serum or plasma beta globuli n measurement by electrophoresis (mass/volume)Ordered By: Shanae Galicia on 07-22-2022 Beta globulin Elph [Mass/Vol] 1.2 g/dL 0.7-1.3 [facility] Serum or plasma gamma globul in measurement by electrophoresis (mass/volume)Ordered By: Shanae Galicia on 07-22-2022 Gamma globulin Elph [Mass/Vol] 1.4 g/dL 0.4-1.8 [facility] Transferrin [Mass/volume] in Serum or PlasmaOrdered By: Shanae Galicia on 07-22-2022 Transferrin [Mass/Vol] 207 mg/dL 203-362 [facility] WBC Auto (Bld) [#/Vol]Ordere d By: Shanae Galicia on 07-22-2022 WBC (Bld) [#/Vol] 10.2 10*3/uL 3.8-11.6 [facility] FFD mammogram Breast - bilat eral Screeningon 05-23-2022 MM screening mammo BI w/CAD [facility] [employer] Other MM screening mammo BI w/CAD [facility] [place] [employer] Other MM screening mammo BI w/CAD [address] [facility] [employer] Other MM screening mammo BI w/[place] [address] [employer] Other MM screening mammo BI w/CAD Mammography Report [employer] Other MM screening mammo BI w/CAD Signed [employer] Other MM screening mammo BI w/CAD Patient: Kelsea Turcios MR#: [id number] [employer] Other MM screening mammo BI w/CAD 58 [employer] Other MM screening mammo BI w/CAD : 1960 Acct:[id number] [employer] Other MM screening mammo BI w/CAD Age/Sex: 61 / F ADM Date: 05/23/22 [employer] Other MM screening mammo BI w/CAD Loc: [place] Room: Type: REG CLI [employer] Other MM screening mammo BI w/CAD Attending Dr: Peri Tyson DO [employer] Other MM screening mammo BI w/CAD Copies to: Peri Tyson DO [employer] Other MM screening mammo BI w/CAD Ordering Provider: Peri Tyson DO [employer] Other MM screening mammo BI w/CAD Date of Service: 05/23/22 [employer] Other MM screening mammo BI w/CAD MM/MM screening mammo BI w/CAD: Breast cancer screening [employer] Other MM screening mammo BI w/CAD Bilateral Screening Full Field digital mammogram with 3-D imaging. [employer] Other MM screening mammo BI w/CAD Full field digital CC and MLO imaging performed. CAD utilized. [employer] Other MM screening mammo BI w/CAD COMPARISON: 04/17/2021 [employer] Other MM screening mammo BI w/CAD HISTORY:Screening [employer] Other MM screening mammo BI w/CAD FINDINGS: Scattered fibroglandular densities of the breast parenchyma identified. No developing [employer] Other MM screening mammo BI w/CAD architectural distortion, developing focal breast asymmetry or developing malignant calcifications [employer] Other MM screening mammo BI w/CAD identified. Scattered benign calcifications identified. [employer] Other MM screening mammo BI w/CAD MM/MM screening mammo BI w/CAD [employer] Other MM screening mammo BI w/CAD IMPRESSION:No mammographic evidence of malignancy. Routine follow-up recommended in one year. [employer] Other MM screening mammo BI w/CAD RESULT CODE: 2 [employer] Other MM screening mammo BI w/CAD Benign Findings(s) [employer] Other MM screening mammo BI w/CAD DENSITY CODE: 2 (approximately 25-50% glandular) [employer] Other MM screening mammo BI w/CAD FOLLOW UP: 1YR [employer] Other MM screening mammo BI w/CAD THE FALSE-NEGATIVE RATE OF MAMMOGRAPHY IS APPROXIMATELY 10%. [employer] Other MM screening mammo BI w/CAD IMAGING OF A PALPABLE ABNORMALITY MUST BE BASED ON CLINICAL GROUNDS. [employer] Other MM screening mammo BI w/CAD PATIENT WAS ENTERED INTO A REMINDER SYSTEM WITH A TARGET DUE DATE FOR THE NEXT MAMMOGRAM. [employer] Other MM screening mammo BI w/CAD Impression dictated by: Domenico Brown M.D.05/23/2022 12:04 PM [employer] Other MM screening mammo BI w/CAD Dictation Location: [facility] [employer] Other MM screening mammo BI w/CAD Transcribed By: PWS 05/23/22 1204 [employer] Other MM screening mammo BI w/CAD Dictated By: Domenico Brown DO 05/23/22 1159 [employer] Other MM screening mammo BI w/CAD Signed By: [employer] Other MM screening mammo BI w/CAD 05/23/22 1204 [employer] Other MM screening mammo BI w/CADo n 05-23-2022 MM screening mammo BI w/CAD [facility] Main [place] [address] [place] [address] Mammography Report Signed Patient: Kelsea Turcios MR#: [id number] 58 : 1960 Acct:[id number] Age/Sex: 61 / F ADM Date: 05/23/22 Loc: [place] Room: Type: [facility] [address] Attending Dr: Peri Tyson DO Copies to: Peri Tyson DO Ordering Provider: Peri Tyson DO Date of Service: 05/23/22 MM/MM screening mammo BI w/CAD: Breast cancer screening Bilateral Screening Full Field digital mammogram with 3-D imaging. Full field digital CC and MLO imaging performed. CAD utilized. COMPARISON: 04/17/2021 HISTORY:Screening FINDINGS: Scattered fibroglandular densities of the breast parenchyma identified. No developing architectural distortion, developing focal breast asymmetry or developing malignant calcifications identified. Scattered benign calcifications identified. MM/MM screening mammo BI w/CAD IMPRESSION:No mammographic evidence of malignancy. Routine follow-up recommended in one year. RESULT CODE: 2 Benign Findings(s) DENSITY CODE: 2 (approximately 25-50% glandular) FOLLOW UP: 1YR THE FALSE-NEGATIVE RATE OF MAMMOGRAPHY IS APPROXIMATELY 10%. IMAGING OF A PALPABLE ABNORMALITY MUST BE BASED ON CLINICAL GROUNDS. PATIENT WAS ENTERED INTO A REMINDER SYSTEM WITH A TARGET DUE DATE FOR THE NEXT MAMMOGRAM. Impression dictated by: Domenico Brown M.D.05/23/2022 12:04 PM Dictation Location: [facility] Transcribed By: [facility] 05/23/22 1204 Dictated By: Domenico Brown DO 05/23/22 1159 Signed By: 05/23/22 1204 Normal [facility] Albumin [Mass/volume] in Ser um or PlasmaOrdered By: Peri Tyson on 05-09-2022 Albumin [Mass/Vol] 3.4 g/dL 3.2-5.5 [facility] Cholesterol [Mass/volume] in Serum or PlasmaOrdered By: Peri Tyson on 05-09-2022 Cholesterol [Mass/Vol] 149 mg/dL Normal 140-2 00 mg/dL [facility] Comment on above: Chol less than 200 m g/dl low riskChol 201-239 mg/dl borderline riskChol 240 mg/dl and greater high risk Cholesterol in LDL Calc [Mas s/Vol]Ordered By: Peri Tyson on 05-09-2022 Cholesterol in LDL [Mass/Vol] 85 mg/dL 0-100 [facility] Comment on above: LDL ATP III CLASSIFI CATIONLDL less than 100 mg/dL OptimalLDL 100-129 mg/dL Near or above optimalLDL 130-159 mg/dL Borderline highLDL 160-189 mg/dL HighLDL greater than 189 mg/dL Very high Cholesterol in VLDL Calc [Ma ss/Vol]Ordered By: Peri Tyson on 05-09-2022 Cholesterol in VLDL [Mass/Vol] 19 mg/dL [facility] Comprehensive Metabolic Pane heriberto 05-09-2022 Albumin [Mass/Vol] 3.417782 g/dL Normal 3.2-5.5 g/dL [employer] Other Bilirubin [Mass/Vol] 0.3977008 mg/dL Normal 0.3- 1.2 mg/dL [employer] Other Calcium [Mass/Vol] 9.9480599 mg/dL Normal 8.2-10 .2 mg/dL [employer] Other CO2 [Moles/Vol] 30.30470809 mmol/L High 22.0-3 0.0 mmol/L [employer] Other Creatinine [Mass/Vol] 1.66359095 mg/dL High 0. 44-1.03 mg/dL [employer] Other Potassium [Moles/Vol] 4.44414330 mmol/L Normal 3 .5-5.1 mmol/L [employer] Other Protein [Mass/Vol] 7.962046 g/dL Normal 6.1-7.9 g/dL [employer] Other Comprehensive Metabolic Panel 45 [employer] Other Comprehensive Metabolic Panel 55 [employer] Other Comprehensive Metabolic Panel 4.2 g/dL [employer] Other Albumin [Mass/Vol] 3.4 g/dL Normal 3.2-5.5 [facility] Comment on above: Order Comment: Reaso n for Exam Type 2 diabetes mellitus with diabetic chronic kidney diseas Performed By: #### T SH3 wRFLX, URMA, CMP, LIPID #### [address] Albumin/Globulin [Mass ratio] 0.8 {ratio} Normal [facility] Comment on above: Order Comment: Reaso n for Exam Type 2 diabetes mellitus with diabetic chronic kidney diseas Performed By: #### T SH3 wRFLX, URMA, CMP, LIPID #### [facility] [address] ALP [Catalytic activity/Vol] 137 U/L High 32-92 [facility] Comment on above: Order Comment: Reaso n for Exam Type 2 diabetes mellitus with diabetic chronic kidney diseas Performed By: #### T SH3 wRFLX, URMA, CMP, LIPID #### [facility] [address] ALT [Catalytic activity/Vol] 41 U/L Normal 10-60 [employer] Other Comment on above: Order Comment: Reaso n for Exam Type 2 diabetes mellitus with diabetic chronic kidney diseas Performed By: #### T SH3 wRFLX, URMA, CMP, LIPID #### [facility] [address] Anion gap [Moles/Vol] 13.1 mmol/L Normal 6.0-15.0 [facility] Comment on above: Order Comment: Reaso n for Exam Type 2 diabetes mellitus with diabetic chronic kidney diseas Performed By: #### T SH3 wRFLX, URMA, CMP, LIPID #### [facility] [address] [place] [id number] [facility] AST [Catalytic activity/Vol] 49 U/L High 10-42 [facility] Comment on above: Order Comment: Reaso n for Exam Type 2 diabetes mellitus with diabetic chronic kidney diseas Performed By: #### T SH3 wRFLX, URMA, CMP, LIPID #### [facility] [address] [place] [id number] [place] Bilirubin [Mass/Vol] 0.4 mg/dL Normal 0.3-1.2 [facility] Comment on above: Order Comment: Reaso n for Exam Type 2 diabetes mellitus with diabetic chronic kidney diseas Performed By: #### T SH3 wRFLX, URMA, CMP, LIPID #### [facility] [address] [place] [address] [place] Calcium [Mass/Vol] 9.5 mg/dL Normal 8.2-10.2 [facility] Comment on above: Order Comment: Reaso n for Exam Type 2 diabetes mellitus with diabetic chronic kidney diseas Performed By: #### T SH3 wRFLX, URMA, CMP, LIPID #### [facility] [address] [place] [address] [place] Chloride [Moles/Vol] 98 mmol/L Normal 95-114 [facility] Comment on above: Order Comment: Reaso n for Exam Type 2 diabetes mellitus with diabetic chronic kidney diseas Performed By: #### T SH3 wRFLX, URMA, CMP, LIPID #### [facility] [address] [place] [address] [place] CO2 [Moles/Vol] 30.9 mmol/L High 22.0-30.0 [facility] Comment on above: Order Comment: Reaso n for Exam Type 2 diabetes mellitus with diabetic chronic kidney diseas Performed By: #### T SH3 wRFLX, URMA, CMP, LIPID #### [facility] [address] [place] [address] [place] Creatinine [Mass/Vol] 1.20 mg/dL High 0.44-1.03 [facility] Comment on above: Order Comment: Reaso n for Exam Type 2 diabetes mellitus with diabetic chronic kidney diseas Performed By: #### T SH3 wRFLX, URMA, CMP, LIPID #### [facility] [address] [place] [address] [place] Estimated GFR ( Ailin 55 [facility] Comment on above: Order Comment: Reaso n for Exam Type 2 diabetes mellitus with diabetic chronic kidney diseas Result Comment: GFR estimated reference range: According to KDOQI guidelines, <60 ml/min/1.73m2 is sufficient to diagnose a patient with chronic kidney disease. Performed By: #### T SH3 wRFLX, URMA, CMP, LIPID #### [facility] [address] [place] [address] [place] Estimated GFR (Non- Am 45 [facility] Comment on above: Order Comment: Reaso n for Exam Type 2 diabetes mellitus with diabetic chronic kidney diseas Performed By: #### T SH3 wRFLX, URMA, CMP, LIPID #### [facility] [address] Globulin (S) [Mass/Vol] 4.2 g/dL Normal [facility] Comment on above: Order Comment: Reaso n for Exam Type 2 diabetes mellitus with diabetic chronic kidney diseas Performed By: #### T SH3 wRFLX, URMA, CMP, LIPID #### [facility] [address] Glucose [Mass/Vol] 186 mg/dL High 70-100 [facility] Comment on above: Order Comment: Reaso n for Exam Type 2 diabetes mellitus with diabetic chronic kidney diseas Result Comment: [facility] Glucose Reference Range is dependent on time and content of last meal. Glucose of more than 200 mg/dL in a nonstressed, ambulatory subject supports the diagnosis of Diabetes Mellitus. ADA recommended reference range Performed By: #### T SH3 wRFLX, URMA, CMP, LIPID #### [facility] [address] Potassium [Moles/Vol] 4.0 mmol/L Normal 3.5-5.1 [facility] Comment on above: Order Comment: Reaso n for Exam Type 2 diabetes mellitus with diabetic chronic kidney diseas Performed By: #### T SH3 wRFLX, URMA, CMP, LIPID #### [facility] [address] [place] [address] Protein [Mass/Vol] 7.6 g/dL Normal 6.1-7.9 [facility] Comment on above: Order Comment: Reaso n for Exam Type 2 diabetes mellitus with diabetic chronic kidney diseas Performed By: #### T SH3 wRFLX, URMA, CMP, LIPID #### [facility] [address] [place] [address] [place] Sodium [Moles/Vol] 138 mmol/L Normal 136-146 [facility] Comment on above: Order Comment: Reaso n for Exam Type 2 diabetes mellitus with diabetic chronic kidney diseas Performed By: #### T SH3 wRFLX, URMA, CMP, LIPID #### [facility] [address] [place] [address] [place] Urea nitrogen [Mass/Vol] 11 mg/dL Normal 9-23 [facility] Comment on above: Order Comment: Reaso n for Exam Type 2 diabetes mellitus with diabetic chronic kidney diseas Performed By: #### T SH3 wRFLX, URMA, CMP, LIPID #### [facility] [address] [place] [address] [facility] Creatinine and Glomerular fi ltration rate.predicted panel (S/P/Bld)Ordered By: Peri Tyson on 05-09-2022 Creatinine [Mass/Vol] 1.20 mg/dL 0.44-1.03 [facility] Estimated glomerular filtrat ion rate (GFR) non- AmericanOrdered By: Peri Tyson on 05-09-2022 GFR/1.73 sq M.predicted among non-blacks MDRD (S/P/Bld) [Vol rate/Area] 45 mL/Min [facility] Globulin Calc (S) [Mass/Vol] Ordered By: Peri Tyson on 05-09-2022 Globulin (S) [Mass/Vol] 4.2 g/dL F [facility] Lipid Panelon 05-09-2022 Cholesterol in LDL Elph Qn 85 mg/dL Normal 0-100 mg/dL [facility] [employer] Other Lipid Panel 96 mg/dL Normal 35-149 mg/dL [facility] [employer] Other Lipid Panel 19 mg/dL [facility] [employer] Other Cholesterol [Mass/Vol] 149 mg/dL Normal 140-200 [facility] Comment on above: Order Comment: Reaso n for Exam Type 2 diabetes mellitus with diabetic chronic kidney diseas Result Comment: Chol less than 200 mg/dl low risk Chol 201-239 mg/dl borderline risk Chol 240 mg/dl and greater high risk Performed By: #### T SH3 wRFLX, URMA, CMP, LIPID #### [facility] [address] [place] [address] [facility] Cholesterol in HDL [Mass/Vol] 45 mg/dL Normal 35-85 [facility] Comment on above: Order Comment: Reaso n for Exam Type 2 diabetes mellitus with diabetic chronic kidney diseas Result Comment: HDL CHOL ATP-III CLASSIFICATION Cardiovascular Risk HDL > or equal to 60 mg/dL LOW HDL < 40 mg/dL HIGH Performed By: #### T SH3 wRFLX, URMA, CMP, LIPID #### [facility] [address] Cholesterol.total/Shahla sterol in HDL [Mass ratio] 3.3 {ratio} Normal <5.0 [facility] Comment on above: Order Comment: Reaso n for Exam Type 2 diabetes mellitus with diabetic chronic kidney diseas Performed By: #### T SH3 wRFLX, URMA, CMP, LIPID #### [facility] [address] LDL Cholesterol,Calculated 85 mg/dL Normal 0-100 [facility] Comment on above: Order Comment: Reaso n for Exam Type 2 diabetes mellitus with diabetic chronic kidney diseas Result Comment: LDL ATP III CLASSIFICATION LDL less than 100 mg/dL Optimal LDL 100-129 mg/dL Near or above optimal LDL 130-159 mg/dL Borderline high LDL 160-189 mg/dL High LDL greater than 189 mg/dL Very high Performed By: #### T SH3 wRFLX, URMA, CMP, LIPID #### [facility] [address] Triglyceride w/Reflex 96 mg/dL Normal 35-149 [facility] Comment on above: Order Comment: Reaso n for Exam Type 2 diabetes mellitus with diabetic chronic kidney diseas Result Comment: TRIG ATP III CLASSIFICATION TRIG less than 150 mg/dL Normal TRIG 150-199 mg/dL Borderline high TRIG 200-500 mg/dL High TRIG greater than 500 mg/dL Very high Standard traceable to the Center for Disease Conrtrol and Prevention (CDC) test method. Performed By: #### T SH3 wRFLX, URMA, CMP, LIPID #### [facility] [address] VLDL CHOLESTEROL 19 mg/dL Normal [facility] Comment on above: Order Comment: Reaso n for Exam Type 2 diabetes mellitus with diabetic chronic kidney diseas Performed By: #### T SH3 wRFLX, URMA, CMP, LIPID #### [facility] [address] [place] [id number] [facility] Microalbumin, Urine (Random) on 05-09-2022 Albumin DL <= 20 mg/L (U) [Mass/Vol] 0.3331338 mg/dL Normal 0.0-1.8 mg/dL [employer] Other Albumin DL <= 20 mg/L (U) [Mass/Vol] 0.6 mg/dL Normal 0.0-1.8 [facility] Comment on above: Order Comment: Reaso n for Exam Type 2 diabetes mellitus with diabetic chronic kidney diseas Result Comment: PERF ORMED BY: [facility] [address] [facility] [place] [address] PATHOLOGIST [employer] AQUILINO JACK M.D. Performed By: #### T SH3 wRFLX, URMA, CMP, LIPID #### [facility] [address] [id number] [facility] No Panel InformationOrdered By: Peri Tyson on 05-09-2022 Estimated GFR () 55 mL/Min [facility] Comment on above: GFR estimated refere nce range: According to KDOQI guidelines, <60 ml/min/1.73m2 is sufficient to diagnose a patient with chronic kidney disease. Pharmacy Creatinine Clearance (Chem N/A [facility] Protein [Mass/volume] in Ser um or PlasmaOrdered By: Peri Tyson on 05-09-2022 Protein [Mass/Vol] 7.6 g/dL 6.1-7.9 [facility] Serum or plasma alanine borden otransferase measurement without P-5'-P (enzymatic activiOrdered By: Peri Tyson on 05-09-2022 ALT No additional P-5'-P [Catalytic activity/Vol] 41 U/L 10-60 [facility] Serum or plasma albumin/glob ulin mass ratioOrdered By: Peri Tyson on 05-09-2022 Albumin/Globulin [Mass ratio] 0.8 {ratio} [facility] Serum or plasma alkaline mo sphatase measurement (enzymatic activity/volume)Ordered By: Peri Tyson on 05-09-2022 ALP [Catalytic activity/Vol] 137 U/L High 32-92 U/L [facility] Serum or plasma anion gap de terminationOrdered By: Peri Tyson on 05-09-2022 Anion gap [Moles/Vol] 13.1 mmol/L 6.0-15.0 [facility] Serum or plasma aspartate am inotransferase measurement (enzymatic activity/volume)Ordered By: Peri Tyson on 05-09-2022 AST [Catalytic activity/Vol] 49 U/L High 10-42 U/L [facility] Serum or plasma calcium monique urement (mass/volume)Ordered By: Peri Tyson on 05-09-2022 Calcium [Mass/Vol] 9.5 mg/dL 8.2-10.2 [facility] Serum or plasma chloride janeth surement (moles/volume)Ordered By: Peri Tyson on 05-09-2022 Chloride [Moles/Vol] 98 mmol/L Normal 95-114 mmol/L [facility] Serum or plasma glucose monique urement (mass/volume)Ordered By: Peri Tyson on 05-09-2022 Glucose [Mass/Vol] 186 mg/dL High 70-100 mg/dL [facility] Comment on above: ADA recommended refe rence rangeRandom Glucose Reference Range is dependent on time and content of last meal. Glucose of more than 200 mg/dL in a nonstressed, ambulatory subject supports the diagnosis of Diabetes Mellitus. Serum or plasma high density lipoprotein (HDL) cholesterol measurementOrdered By: Peri Tyson on 05-09-2022 Cholesterol in HDL [Mass/Vol] 45 mg/dL Normal 35-85 mg/dL [facility] Comment on above: HDL CHOL ATP-III CLA SSIFICATION Cardiovascular RiskHDL > or equal to 60 mg/dL LOWHDL < 40 mg/dL HIGH Serum or plasma potassium me asurement (moles/volume)Ordered By: Peri Tyson on 05-09-2022 Potassium [Moles/Vol] 4.0 mmol/L 3.5-5.1 [facility] Serum or plasma sodium measu rement (moles/volume)Ordered By: Peri Tyson on 05-09-2022 Sodium [Moles/Vol] 138 mmol/L Normal 136-146 mmol/L [facility] Serum or plasma total biliru bin measurement (mass/volume)Ordered By: Peri Tyson on 05-09-2022 Bilirubin [Mass/Vol] 0.4 mg/dL 0.3-1.2 [facility] Serum or plasma total carbon dioxide measurement (moles/volume)Ordered By: Peri Tyson on 05-09-2022 CO2 [Moles/Vol] 30.9 mmol/L 22.0-30.0 [facility] Serum or plasma total choles terol/high density lipoprotein (HDL) cholesterol mass ratOrdered By: Peri Tyson on 05-09-2022 Cholesterol.total/Shahla sterol in HDL [Mass ratio] 3.3 {ratio} <5.0 [facility] Serum or plasma urea nitroge n measurement (mass/volume)Ordered By: Peri Tyson on 05-09-2022 Urea nitrogen [Mass/Vol] 11 mg/dL Normal 9-23 mg/dL [facility] TSH DL <= 0.005 mIU/L QnOrde red By: Peri Tyson on 05-09-2022 TSH Qn 2.51 m[IU]/L 0.45-5.33 [facility] Thyroid Stim Hormone w/Rflxo n 05-09-2022 Thyroid Stim Hormone w/Rflx 2.51 u[iU]/mL Normal 0.45-5.33 u[iU]/mL [employer] Other Thyroid Stim Hormone w/Rflx 2.51 u[iU]/mL Normal 0.45-5.33 [facility] Comment on above: Order Comment: Reaso n for Exam Type 2 diabetes mellitus with diabetic chronic kidney diseas Result Comment: PERF ORMED BY: [place] [address] PATHOLOGIST [employer] AQUILINO JACK M.D. Performed By: #### T SH3 wRFLX, URMA, CMP, LIPID #### [facility] [address] Triglyceride [Mass/volume] i n Serum or PlasmaOrdered By: Peri Tyson on 01-27-2023 Triglyceride [Mass/Vol] 96 mg/dL 35-149 [facility] Comment on above: TRIG ATP III CLASSIF ICATIONTRIG less than 150 mg/dL NormalTRIG 150-199 mg/dL Borderline highTRIG 200-500 mg/dL High TRIG greater than 500 mg/dL Very highStandard traceable to the Center for Disease Conrtrol and Prevention (CDC) test method. Urine microalbumin measureme nt with detection limit of 20 mg/L or less (mass/volume)Ordered By: Peri Tyson on 05-09-2022 Albumin DL <= 20 mg/L (U) [Mass/Vol] 0.6 mg/dL 0.0-1.8 [facility] A1C HEMOGLOBINon 05-07-2022 HbA1c (Bld) [Mass fraction] 7.6 % [employer] Other HbA1c (Bld) [Mass fraction]o n 05-07-2022 A1C HEMOGLOBIN [employer] Other Albumin [Mass/volume] in Ser um or PlasmaOrdered By: Roxane Bills on 04-17-2022 Albumin [Mass/Vol] 3.2 g/dL 3.2-5.5 [facility] Albumin [Mass/Vol] 3.4 g/dL 2.9-4.4 [facility] Basophils Auto (Bld) [#/Vol] Ordered By: Roxane Bills on 04-17-2022 Basophils (Bld) [#/Vol] 0.1 10*3/uL 0.0-0.2 [facility] Basophils/100 WBC Auto (Bld) Ordered By: Roxane Bills on 04-17-2022 Basophils/100 WBC (Bld) 0.5 % . [facility] CT biopsyOrdered By: Roxane Garibay se on 04-17-2022 Transferrin [Mass/Vol] 247 mg/dL 180-380 [facility] Creatinine and Glomerular fi ltration rate.predicted panel (S/P/Bld)Ordered By: Roxane Bills on 04-17-2022 Creatinine [Mass/Vol] 1.26 mg/dL 0.44-1.03 [facility] Eosinophils Auto (Bld) [#/Vo l]Ordered By: Roxane Bills on 04-17-2022 Eosinophils (Bld) [#/Vol] 0.6 10*3/uL 0.0-0.45 [facility] Eosinophils/100 WBC Auto (Bl d)Ordered By: Roxane Bills on 04-17-2022 Eosinophils/100 WBC (Bld) 5.9 % . [facility] Erythrocyte distribution wid th Auto (RBC) [Ratio]Ordered By: Roxane Bills on 04-17-2022 Erythrocyte distribution width (RBC) [Ratio] 15.7 % 11.9-15.3 [facility] Estimated glomerular filtrat ion rate (GFR) non- AmericanOrdered By: Roxane Bills on 04-17-2022 GFR/1.73 sq M.predicted among non-blacks MDRD (S/P/Bld) [Vol rate/Area] 43 mL/Min [facility] Ferritin [Mass/volume] in Se rum or PlasmaOrdered By: Roxane Bills on 04-17-2022 Ferritin [Mass/Vol] 72.6 ng/mL 11-306.8 [facility] Globulin Calc (S) [Mass/Vol] Ordered By: Roxane Bills on 04-17-2022 Globulin (S) [Mass/Vol] 3.8 g/dL [facility] Hematocrit Auto (Bld) [Volum e fraction]Ordered By: Roxane Bills on 04-17-2022 Hematocrit (Bld) [Volume fraction] 35.4 % 34.0-46.4 [facility] Hemoglobin [Mass/volume] in BloodOrdered By: Roxane Bills on 04-17-2022 Hemoglobin (Bld) [Mass/Vol] 11.2 g/dL 11.8-15.4 [facility] IgA [Mass/volume] in Serum o r PlasmaOrdered By: Roxane Bills on 04-17-2022 IgA [Mass/Vol] 625 mg/dL 87-352 [facility] IgG [Mass/volume] in Serum o r PlasmaOrdered By: Roxane Bills on 04-17-2022 IgG [Mass/Vol] 1443 mg/dL 586-1602 [facility] IgM [Mass/volume] in Serum o r PlasmaOrdered By: Roxane Bills on 04-17-2022 IgM [Mass/Vol] 98 mg/dL 26-217 [facility] Comment on above: Performed at: [facility] [id number] Director: Jhoan Rich PhD, Phone: [phone] Immunoglobulin light chains. kappa.free [Mass/volume] in SerumOrdered By: Roxane Bills on 04-17-2022 Immunoglobulin light chains.kappa.free (S) [Mass/Vol] 162.6 mg/L 3.3-19.4 [facility] Immunoglobulin light chains. kappa.free/Immunoglobulin light chains.lambda.free [MassOrdered By: Roxane Bills on 04-17-2022 Immunoglobulin light chains.kappa.free/Immun oglobulin light chains.lambda.free (S) [Mass ratio] 3.65 0.26-1.65 [facility] Comment on above: Performed at: [facility] [place], [place] [id number] Director: Jhoan Rich PhD, Phone: [phone] Immunoglobulin light chains. lambda.free [Mass/volume] in Serum or PlasmaOrdered By: Roxane Bills on 04-17-2022 Immunoglobulin light chains.lambda.free [Mass/Vol] 44.5 mg/L 5.7-26.3 [facility] Iron [Mass/volume] in Serum or PlasmaOrdered By: Roxane Bills on 04-17-2022 Iron [Mass/Vol] 53 ug/dL 40-150 [facility] Iron binding capacity [Mass/ volume] in Serum or PlasmaOrdered By: Roxane Bills on 04-17-2022 Iron binding capacity [Mass/Vol] 346 ug/dL 255-450 [facility] Iron saturation [Mass Fracti on] in Serum or PlasmaOrdered By: Roxane Bills on 04-17-2022 Iron saturation [Mass fraction] 15.3 % 20-50 [facility] Laboratory - Chemistry and C hemistry - challengeOrdered By: Roxane Bills on 04-17-2022 Protein [Mass/Vol] 0.4 g/dL Not Observed [facility] Leukocytes [#/volume] correc shan for nucleated erythrocytes in Blood by Automated counOrdered By: Roxane Bills on 04-17-2022 WBC corrected for nucl RBC Auto (Bld) [#/Vol] 10.8 10*3/uL 3.8-11.6 [facility] Lymphocytes Auto (Bld) [#/Vo l]Ordered By: Roxane Bills on 04-17-2022 Lymphocytes (Bld) [#/Vol] 2.6 10*3/uL 1.00-4.8 [facility] Lymphocytes/100 WBC Auto (Bl d)Ordered By: Roxane Bills on 04-17-2022 Lymphocytes/100 WBC (Bld) 24.5 % . [facility] MCH Auto (RBC) [Entitic mass ]Ordered By: Roxane Bills on 04-17-2022 MCH (RBC) [Entitic mass] 27.9 pg 24.7-34.3 [facility] MCHC Auto (RBC) [Mass/Vol]Or dered By: Roxane Bills on 04-17-2022 MCHC (RBC) [Mass/Vol] 31.6 g/dL 32.0-35.0 [facility] MCV Auto (RBC) [Entitic vol] Ordered By: Roxane Bills on 04-17-2022 MCV (RBC) [Entitic vol] 88.1 fL 80-100 [facility] Monocytes Auto (Bld) [#/Vol] Ordered By: Roxane Bills on 04-17-2022 Monocytes (Bld) [#/Vol] 0.8 10*3/uL 0.0-0.8 [facility] Monocytes/100 WBC Auto (Bld) Ordered By: Roxane Bills on 04-17-2022 Monocytes/100 WBC (Bld) 7.9 % . [facility] Neutrophils Auto (Bld) [#/Vo l]Ordered By: Roxane Bills on 04-17-2022 Neutrophils (Bld) [#/Vol] 6.6 10*3/uL 1.8-7.7 [facility] Neutrophils/100 WBC Auto (Bl d)Ordered By: Roxane Bills on 04-17-2022 Neutrophils/100 WBC (Bld) 61.2 % . [facility] No Panel InformationOrdered By: Roxane Bills on 04-17-2022 Estimated GFR () 52 mL/Min [facility] Comment on above: GFR estimated refere nce range: According to KDOQI guidelines, <60 ml/min/1.73m2 is sufficient to diagnose a patient with chronic kidney disease. Pharmacy Creatinine Clearance (Chem 51.63 [facility] Protein Electrophoresis Note See comment . [facility] Comment on above: Protein electrophore sis scan will follow via computer,mail, or petroleum engineering professor delivery.Performed at: [facility] [place] [id number] Director: Jhoan Rich PhD, Phone: [phone] Nucleated erythrocytes [Pres ence] in Blood by Automated countOrdered By: Roxane Bills on 04-17-2022 Nucleated RBC Auto Ql (Bld) 0.2 /100{WBC} 0-0.5 [facility] Platelet mean volume Auto (B ld) [Entitic vol]Ordered By: Roxane Bills on 04-17-2022 Platelet mean volume (Bld) [Entitic vol] 7.6 fL 6.3-10.7 [facility] Platelets Auto (Bld) [#/Vol] Ordered By: Roxane Bills on 04-17-2022 Platelets (Bld) [#/Vol] 273 10*3/uL 150-450 [facility] Protein [Mass/volume] in Ser um or PlasmaOrdered By: Roxane Bills on 04-17-2022 Protein [Mass/Vol] 7.0 g/dL 6.1-7.9 [facility] Protein [Mass/Vol] 7.3 g/dL 6.0-8.5 [facility] RBC Auto (Bld) [#/Vol]Ordere d By: Roxane Bills on 04-17-2022 RBC (Bld) [#/Vol] 4.02 10*6/uL 3.60-5.00 [facility] Serum globulin measurement ( mass/volume)Ordered By: Roxane Bills on 04-17-2022 Globulin (S) [Mass/Vol] 3.9 g/dL 2.2-3.9 [facility] Serum or plasma alanine borden otransferase measurement without P-5'-P (enzymatic activiOrdered By: Roxane Bills on 04-17-2022 ALT No additional P-5'-P [Catalytic activity/Vol] 22 U/L 10-60 [facility] Serum or plasma albumin/glob ulin mass ratioOrdered By: Roxane Bills on 04-17-2022 Albumin/Globulin [Mass ratio] 0.8 {ratio} [facility] Albumin/Globulin [Mass ratio] 0.9 {ratio} 0.7-1.7 [facility] Serum or plasma alkaline mo sphatase measurement (enzymatic activity/volume)Ordered By: Roxane Bills on 04-17-2022 ALP [Catalytic activity/Vol] 121 U/L 32-92 [facility] Serum or plasma alpha 1 glob ulin measurement by electrophoresis (mass/volume)Ordered By: Roxane Bills on 04-17-2022 Alpha 1 globulin Elph [Mass/Vol] 0.3 g/dL 0.0-0.4 [facility] Serum or plasma alpha 2 glob ulin measurement by electrophoresis (mass/volume)Ordered By: Roxane Bills on 04-17-2022 Alpha 2 globulin Elph [Mass/Vol] 0.9 g/dL 0.4-1.0 [facility] Serum or plasma anion gap de terminationOrdered By: Roxane Bills on 04-17-2022 Anion gap [Moles/Vol] 12.8 mmol/L 6.0-15.0 [facility] Serum or plasma aspartate am inotransferase measurement (enzymatic activity/volume)Ordered By: Roxane Bills on 04-17-2022 AST [Catalytic activity/Vol] 23 U/L 10-42 [facility] Serum or plasma beta globuli n measurement by electrophoresis (mass/volume)Ordered By: Roxane Bills on 04-17-2022 Beta globulin Elph [Mass/Vol] 1.4 g/dL 0.7-1.3 [facility] Serum or plasma calcium monique urement (mass/volume)Ordered By: Roxane Bills on 04-17-2022 Calcium [Mass/Vol] 9.1 mg/dL 8.2-10.2 [facility] Serum or plasma chloride janeth surement (moles/volume)Ordered By: Roxane Bills on 04-17-2022 Chloride [Moles/Vol] 98 mmol/L 95-114 [facility] Serum or plasma gamma globul in measurement by electrophoresis (mass/volume)Ordered By: Roxane Bills on 04-17-2022 Gamma globulin Elph [Mass/Vol] 1.3 g/dL 0.4-1.8 [facility] Serum or plasma glucose monique urement (mass/volume)Ordered By: Roxane Bills on 04-17-2022 Glucose [Mass/Vol] 269 mg/dL 70-100 [facility] Comment on above: ADA recommended refe rence rangeRandom Glucose Reference Range is dependent on time and content of last meal. Glucose of more than 200 mg/dL in a nonstressed, ambulatory subject supports the diagnosis of Diabetes Mellitus. Serum or plasma potassium me asurement (moles/volume)Ordered By: Roxane Bills on 04-17-2022 Potassium [Moles/Vol] 3.5 mmol/L 3.5-5.1 [facility] Serum or plasma sodium measu rement (moles/volume)Ordered By: Roxane Bills on 04-17-2022 Sodium [Moles/Vol] 138 mmol/L 136-146 [facility] Serum or plasma total biliru bin measurement (mass/volume)Ordered By: Roxane Bills on 04-17-2022 Bilirubin [Mass/Vol] 0.3 mg/dL 0.3-1.2 [facility] Serum or plasma total carbon dioxide measurement (moles/volume)Ordered By: Roxane Bills on 04-17-2022 CO2 [Moles/Vol] 30.7 mmol/L 22.0-30.0 [facility] Serum or plasma urea nitroge n measurement (mass/volume)Ordered By: Roxane Bills on 04-17-2022 Urea nitrogen [Mass/Vol] 17 mg/dL 9-23 [facility] WBC Auto (Bld) [#/Vol]Ordere d By: Roxane Bills on 04-17-2022 WBC (Bld) [#/Vol] 10.8 10*3/uL 3.8-11.6 [facility] Urine culture routineOrdered By: Peri Tyson on 02-05-2022 Bacteria identified Cx Nom (U) Strep. agalactiae Grp B [facility] A1C HEMOGLOBINon 02-03-2022 HbA1c (Bld) [Mass fraction] 7.0 % [employer] Other Urinalysis - AUTOMATEDon Appearance (U) cloudy [employer] Other Bilirubin Ql (U) Negative [employer] Other Color (U) yellow [employer] Other Glucose Ql (U) 500 [employer] Other Hemoglobin Ql (U) Negative [employer] Other Ketones Ql (U) Negative [employer] Other Leukocyte esterase Test strip Ql (U) small [employer] Other Nitrite Ql (U) Negative [employer] Other pH (U) 5.5 [pH] [employer] Other Protein Ql (U) Negative [employer] Other Specific gravity (U) [Rel density] 1.010 [employer] Other Urobilinogen (U) [Mass/Vol] 0.2 mg/dL [employer] Other Urinalysis - AUTOMATED No rt [employer] Other Urine culture routineOrdered By: Peri Tyson on 02-03-2022 Bacteria identified Cx Nom (U) Strep. agalactiae [facility] B [facility] Urine culture routineOrdered By: Peri Tyson on 12-25-2021 Bacteria identified Cx Nom (U) Strep. agalactiae [facility] B [facility] Drugs identified in UrineOrd ered By: Peri Tyson on 12-23-2021 Drugs identified Nom (U) Final . [facility] Comment on above: ======TOXASSURE COMP DRUG ANALYSIS,UR Test Result Flag UnitsDrug Present Alcohol, Ethyl 0.097 g/dL Sources of ethyl alcohol include alcoholic beverages or as a fermentation product of glucose; glucose was not detected in this specimen. Ethyl alcohol result should be interpreted in the context of all available clinical and behavioral information. Gabapentin PRESENT Zonisamide PRESENT Duloxetine PRESENT Mirtazapine PRESENT Milnacipran PRESENT Sources of milnacipran include prescription medications containing milnacipran or its stereoisomer, levomilnacipran. Test Result Flag Units Ref Range Creatinine 57 mg/dL >=20 Declared Medications: Medication list was not provided. For clinical consultation, please call . Performed at: [employer] [address] [id number] Director: Tomasa Alegria [facility], Phone: [phone] Urinalysis - AUTOMATEDon Appearance (U) clear [employer] Other Bilirubin Ql (U) Negative [employer] Other Color (U) yellow [employer] Other Glucose Ql (U) 1000 [employer] Other Hemoglobin Ql (U) Negative [employer] Other Ketones Ql (U) Negative [employer] Other Leukocyte esterase Test strip Ql (U) trace [employer] Other Nitrite Ql (U) Negative [employer] Other pH (U) 7.0 [pH] [employer] Other Protein Ql (U) Negative [employer] Other Specific gravity (U) [Rel density] 1.010 [employer] Other Urobilinogen (U) [Mass/Vol] 0.2 mg/dL [employer] Other Urinalysis - AUTOMATED No [employer] Other CT biopsyOrdered By: Roxane Garibay se on 10-23-2021 Transferrin [Mass/Vol] 290 mg/dL 180-380 [facility] Ferritin [Mass/volume] in Se rum or PlasmaOrdered By: Roxane Bills on 10-23-2021 Ferritin [Mass/Vol] 76.6 ng/mL 11-306.8 [facility] Iron [Mass/volume] in Serum or PlasmaOrdered By: Roxane Bills on 10-23-2021 Iron [Mass/Vol] 64 ug/dL 40-150 [facility] Iron binding capacity [Mass/ volume] in Serum or PlasmaOrdered By: Roxane Bills on 10-23-2021 Iron binding capacity [Mass/Vol] 406 ug/dL 255-450 [facility] Iron saturation [Mass Fracti on] in Serum or PlasmaOrdered By: Roxane Bills on 10-23-2021 Iron saturation [Mass fraction] 15.0 % 20-50 [facility] A1C HEMOGLOBINon 10-21-2021 HbA1c (Bld) [Mass fraction] 7.2 % [employer] Other Basic Metabolic PanelOrdered By: Laureen Tyler on 10-21-2021 Chloride [Moles/Vol] 100 mmol/L 95-114 [facility] Glucose [Mass/Vol] 268 mg/dL 70-100 [facility] Comment on above: ADA recommended refe rence range Random Glucose Reference Range is dependent on time and content of last meal. Glucose of more than 200 mg/dL in a nonstressed, ambulatory subject supports the diagnosis of Diabetes Mellitus. Sodium [Moles/Vol] 139 mmol/L 136-146 [facility] Urea nitrogen [Mass/Vol] 18 mg/dL 9-23 [facility] Basic Metabolic Panelon 10-11 Calcium [Mass/Vol] 9.2733921 mg/dL Normal 8.2-10 .2 mg/dL [employer] Other CO2 [Moles/Vol] 29.35108516 mmol/L Normal 22.0-3 0.0 mmol/L [employer] Other Creatinine [Mass/Vol] 1.90073801 mg/dL High 0. 44-1.03 mg/dL [employer] Other Potassium [Moles/Vol] 4.92367366 mmol/L Normal 3 .5-5.1 mmol/L [employer] Other Basic Metabolic Panel [address] [facility] [employer] Other Creatinine and Glomerular fi ltration rate.predicted panel (S/P/Bld)Ordered By: Laureen Tyler on 10-21-2021 Creatinine [Mass/Vol] 1.57 mg/dL 0.44-1.03 [facility] Estimated glomerular filtrat ion rate (GFR) non- AmericanOrdered By: Laureen Tyler on 10-21-2021 GFR/1.73 sq M.predicted among non-blacks MDRD (S/P/Bld) [Vol rate/Area] 33 mL/Min [facility] HbA1c (Bld) [Mass fraction]o n 10-21-2021 A1C HEMOGLOBIN [facility] [employer] Other No Panel InformationOrdered By: Laureen Tyler on 10-21-2021 Estimated GFR () 40 mL/Min [facility] Comment on above: GFR estimated refere nce range: According to KDOQI guidelines, <60 ml/min/1.73m2 is sufficient to diagnose a patient with chronic kidney disease. Pharmacy Creatinine Clearance (Chem N/A [facility] Serum or plasma calcium monique urement (mass/volume)Ordered By: Laureen Tyler on 10-21-2021 Calcium [Mass/Vol] 9.6 mg/dL 8.2-10.2 [facility] Serum or plasma potassium me asurement (moles/volume)Ordered By: Laureen Tyler on 10-21-2021 Potassium [Moles/Vol] 4.7 mmol/L 3.5-5.1 [facility] Serum or plasma total carbon dioxide measurement (moles/volume)Ordered By: Laureen Tyler on 10-21-2021 CO2 [Moles/Vol] 29.0 mmol/L 22.0-30.0 [facility] Activated partial thrombopla stin time (aPTT) in platelet poor plasma by coagulation aOrdered By: Roxane Bills on 09-26-2021 aPTT Coag (PPP) [Time] 33.0 s 25.1-36.5 [facility] Basophils Auto (Bld) [#/Vol] Ordered By: Roxane Bills on 09-26-2021 Basophils (Bld) [#/Vol] 0.1 10*3/uL 0.0-0.2 [facility] Basophils/100 WBC Auto (Bld) Ordered By: Roxane Bills on 09-26-2021 Basophils/100 WBC (Bld) 0.5 % . [facility] Blood hemoglobin measurement (mass/volume)Ordered By: Roaxne Bills on 09-26-2021 Hemoglobin (Bld) [Mass/Vol] 11.4 g/dL 11.8-15.4 [facility] Blood leukocytes automated c ount (number/volume)Ordered By: Roxane Bills on 09-26-2021 WBC (Bld) [#/Vol] 11.1 10*3/uL 4.5-11.0 [facility] Eosinophils Auto (Bld) [#/Vo l]Ordered By: Roxane Bills on 09-26-2021 Eosinophils (Bld) [#/Vol] 0.8 10*3/uL 0.0-0.45 [facility] Eosinophils/100 WBC Auto (Bl d)Ordered By: Roxane Bills on 09-26-2021 Eosinophils/100 WBC (Bld) 7.7 % . [facility] Erythrocyte distribution wid th Auto (RBC) [Ratio]Ordered By: Roxane Bills on 09-26-2021 Erythrocyte distribution width (RBC) [Ratio] 14.5 % 11.9-15.3 [facility] Hematocrit Auto (Bld) [Volum e fraction]Ordered By: Roxane Bills on 09-26-2021 Hematocrit (Bld) [Volume fraction] 35.3 % 34.0-46.4 [facility] Laboratory - CoagulationOrde red By: Roxane Bills on 09-26-2021 PT Coag (PPP) [Time] 13.9 s 9.0-12.9 [facility] Laboratory - Hematology and Cell countsOrdered By: Roxane Bills on 09-26-2021 Nucleated RBC/100 WBC (Bld) [Ratio] 0.1 % 0-0.5 [facility] Lymphocytes Auto (Bld) [#/Vo l]Ordered By: Roxane Bills on 09-26-2021 Lymphocytes (Bld) [#/Vol] 2.4 10*3/uL 1.00-4.8 [facility] Lymphocytes/100 WBC Auto (Bl d)Ordered By: Roxane Bills on 09-26-2021 Lymphocytes/100 WBC (Bld) 21.6 % . [facility] MCH Auto (RBC) [Entitic mass ]Ordered By: Roxane Bills on 09-26-2021 MCH (RBC) [Entitic mass] 28.3 pg 24.7-34.3 [facility] MCHC Auto (RBC) [Mass/Vol]Or dered By: Roxane Bills on 09-26-2021 MCHC (RBC) [Mass/Vol] 32.1 g/dL 32.0-35.0 [facility] MCV Auto (RBC) [Entitic vol] Ordered By: Roxane Bills on 09-26-2021 MCV (RBC) [Entitic vol] 88.0 fL 80-100 [facility] Monocytes Auto (Bld) [#/Vol] Ordered By: Roxane Bills on 09-26-2021 Monocytes (Bld) [#/Vol] 0.9 10*3/uL 0.0-0.8 [facility] Monocytes/100 WBC Auto (Bld) Ordered By: Roxane Bills on 09-26-2021 Monocytes/100 WBC (Bld) 7.8 % . [facility] Neutrophils Auto (Bld) [#/Vo l]Ordered By: Roxane Bills on 09-26-2021 Neutrophils (Bld) [#/Vol] 6.9 10*3/uL 1.8-7.7 [facility] Neutrophils/100 WBC Auto (Bl d)Ordered By: Roxane Bills on 09-26-2021 Neutrophils/100 WBC (Bld) 62.4 % . [facility] Platelet mean volume Auto (B ld) [Entitic vol]Ordered By: Roxane Bills on 09-26-2021 Platelet mean volume (Bld) [Entitic vol] 7.5 fL 6.3-10.7 [facility] Platelet poor plasma interna tional normalized ratio (INR) by coagulation assay (relatOrdered By: Roxane Bills on 09-26-2021 INR Coag (PPP) [Relative time] 1.2 {INR} [facility] Comment on above: INR Therapeutic Rang e A) Pre- and Peroperative OAT started two weeks before surgery. NOT HIP SURGERY: 1.5 - 2.5 HIP SURGERY: 2 - 3 B) Primary and secondary prevention of venous THROMBOSIS: 2 - 3 C) Active venous thrombosis, pulmonary embolism and prevention of recurrent venous thrombosis: 2 - 3 D) Prevention of arterial thromboembolism including patients with mechanical heart valves: 3 - 4.5 Platelets Auto (Bld) [#/Vol] Ordered By: Roxane Bills on 09-26-2021 Platelets (Bld) [#/Vol] 302 10*3/uL 150-450 [facility] RBC Auto (Bld) [#/Vol]Ordere d By: Roxane Bills on 09-26-2021 RBC (Bld) [#/Vol] 4.01 10*6/uL 3.60-5.00 [facility] Albumin/Protein.total in 24 hour Urine by ElectrophoresisOrdered By: Roxane Bills on 08-16-2021 Albumin Elph (24H U) [Mass fraction] 27.8 % . [facility] Creatinine [Mass/volume] in UrineOrdered By: Roxane Bills on 08-16-2021 Creatinine (U) [Mass/Vol] 35.9 mg/dL [facility] Comment on above: No reference range e stablished Gamma globulin/Protein.total in 24 hour Urine by ElectrophoresisOrdered By: Roxane Bills on 08-16-2021 Gamma globulin Elph (24H U) [Mass fraction] 24.3 % . [facility] Immunofixation for UrineOrde red By: Roxane Bills on 08-16-2021 Interpretation Immunofixation (U) [Interp] See comment . [facility] Comment on above: No monoclonality det ected. Performed at: [facility] [id number] Iron Setter: Jhoan Rich PhD, Phone: [phone] No monoclonality det ected.Performed at: [facility] [id number] Director: Jhoan Rich PhD, Phone: [phone] Immunoglobulin light chains. kappa.free [Mass/volume] in SerumOrdered By: Roxane Bills on 08-16-2021 Immunoglobulin light chains.kappa.free (S) [Mass/Vol] 73.6 mg/L 3.3-19.4 [facility] Immunoglobulin light chains. kappa.free/Immunoglobulin light chains.lambda.free [MassOrdered By: Roxane Bills on 08-16-2021 Immunoglobulin light chains.kappa.free/Immun oglobulin light chains.lambda.free (S) [Mass ratio] 2.52 0.26-1.65 [facility] Comment on above: Performed at: [address] [id number] Iron Setter: Jhoan Rich PhD, Phone: [phone] Immunoglobulin light chains. lambda.free [Mass/volume] in Serum or PlasmaOrdered By: Roxane Bills on 08-16-2021 Immunoglobulin light chains.lambda.free [Mass/Vol] 29.2 mg/L 5.7-26.3 [facility] No Panel InformationOrdered By: Roxane Bills on 08-16-2021 Urine Random Prot Electrophor Note See comment . [facility] Comment on above: Protein electrophore sis scan will follow via computer, mail, or petroleum engineering professor delivery. Protein electrophoresis scan will follow via computer, mail, or petroleum engineering professor delivery. Performed at: [facility] [id number] Iron Setter: Jhoan Rich PhD, Phone: [phone] --- 08/20/211408 --- Please Note: previously reported as: Protein electrophoresis scan will follow via computer, mail, or petroleum engineering professor delivery. Protein electrophore sis scan will follow via computer,mail, or petroleum engineering professor delivery. Protein electrophoresis scan will follow via computer,mail, or petroleum engineering professor delivery.Performed at: [facility] [id number] Director: Jhoan Rich PhD, Phone: [phone] --- 08/20/211408 ---Please Note: previously reported as: Protein electrophoresis scan will follow via computer,mail, or petroleum engineering professor delivery. Protein [Mass/volume] in Uri neOrdered By: Roxane Bills on 08-16-2021 Protein (U) [Mass/Vol] 4.8 mg/dL Not Estab. [facility] Protein.monoclonal/Protein.t otal in 24 hour Urine by ElectrophoresisOrdered By: Roxane Bills on 08-16-2021 Protein.monoclonal Elph (24H U) [Mass fraction] Not observed % Not Observed [facility] Serum or plasma fmbs-2-[id number] globulin measurement (mass/volume)Ordered By: Roxane Bills on 08-16-2021 Orgb-6-[id number] [Mass/Vol] 4.9 ug/mL 0.6-2.4 [facility] Comment on above: Siemens Immulite 200 0 Immunochemiluminometric assay (ICMA) Values obtained with different assay methods or kits cannot be used interchangeably. Results cannot be interpreted as absolute evidence of the presence or absence of malignant disease. Performed at: [facility] [id number] Iron Setter: Betty Bah MD, Phone: [phone] Siemens Immulite 200 0 Immunochemiluminometric assay (ICMA)Values obtained with different assay methods or kits cannotbe used interchangeably. Results cannot be interpreted asabsolute evidence of the presence or absence of malignantdisease.Performed at: [facility] [id number] Director: Betty Bah MD, Phone: [phone] Urine alpha 1 globulin/total protein by electrophoresisOrdered By: Roxane Bills on 08-16-2021 Alpha 1 globulin Elph (U) [Mass fraction] 3.9 % . [facility] Urine alpha 2 globulin/total protein ratio by electrophoresisOrdered By: Roxane Bills on 08-16-2021 Alpha 2 globulin Elph (U) [Mass fraction] 11.3 % . [facility] Urine beta globulin measurem ent by electrophoresis (mass/volume)Ordered By: Roxane Bills on 08-16-2021 Beta globulin Elph (U) [Mass/Vol] 32.8 % . [facility] A1C HEMOGLOBINon 05-23-2021 HbA1c (Bld) [Mass fraction] 6.7 % [facility] [employer] Other HbA1c (Bld) [Mass fraction]o n 05-23-2021 A1C HEMOGLOBIN [facility] [employer] Other Thyroid Stim Hormone w/Rflxo n 04-02-2021 Thyroid Stim Hormone w/Rflx 3.31 0.45-5.[address] [facility] [employer] Other Vital Signs Date Time Vital Sign Value Performing Clinician Facility 03-04-2023 13:28-0500 Body temperature 97.6 [degF] DO Peri Tyson Work Phone: [facility] 03-04-2023 13:28-0500 Body weight 110.22 kg DO Peri Tyson Work Phone: [facility] 03-04-2023 13:28-0500 Diastolic blood pressure 89 mm[Hg] DO Peri Tyson Work Phone: [facility] 03-04-2023 13:28-0500 Heart rate 87 /min DO Peri Tyson Work Phone: [facility] 03-04-2023 13:28-0500 Inhaled oxygen flow rate 4 L/min DO Peri Tyson Work Phone: [facility] 03-04-2023 13:28-0500 Respiratory rate 16 /min DO Peri Tyson Work Phone: [facility] 03-04-2023 13:28-0500 SaO2% (BldA) [Mass fraction] 97 % DO Peri Tyson Work Phone: [facility] 03-04-2023 13:28-0500 Systolic blood pressure 172 mm[Hg] DO Peri Tyson Work Phone: [facility] 02-12-2023 10:15-0400 Diastolic blood pressure 88 mm[Hg] DO Peri Tyson Work Phone: [facility] 02-12-2023 10:15-0400 Heart rate 77 /min DO Peri Marbella Work Phone: [facility] 02-12-2023 10:15-0400 Inhaled oxygen flow rate 4 L/min DO Peri Marbella Work Phone: [facility] 02-12-2023 10:15-0400 Respiratory rate 18 /min DO Peri Marbella Work Phone: [facility] 02-12-2023 10:15-0400 SaO2% (BldA) [Mass fraction] 97 % DO Peri Marbella Work Phone: [facility] 02-12-2023 10:15-0400 Systolic blood pressure 141 mm[Hg] DO Peri Marbella Work Phone: [facility] 02-12-2023 08:15-0400 Body height 152.4 cm DO Peri Marbella Work Phone: [facility] 02-12-2023 08:15-0400 Body weight 108.86 kg DO Peri Marbella Work Phone: [facility] 02-06-2023 09:00-0400 Body height 152.4 cm Peri Tyson Other [employer] Other 02-06-2023 09:00-0400 Body mass index (BMI) [Ratio] 48.43 kg/m2 Periluis Tyson Other [employer] Other 02-06-2023 09:00-0400 Body weight 112.49 kg Peri Tyson Other [employer] Other 02-06-2023 09:00-0400 Diastolic blood pressure 70 mm[Hg] Peri Tyson Other [employer] Other 02-06-2023 09:00-0400 Respiratory rate 20 /min Peri Tyson Other [employer] Other 02-06-2023 09:00-0400 SaO2% (BldA) [Mass fraction] 99 % Peri Tyson Other [employer] Other 02-06-2023 09:00-0400 Systolic blood pressure 138 mm[Hg] Peri Tyson Other [employer] Other 01-29-2023 08:55-0400 Body temperature 97.5 [degF] DO Peri Tyson Work Phone: [facility] 01-29-2023 08:55-0400 Body weight 112.94 kg DO Peri Tyson Work Phone: [facility] 01-29-2023 08:55-0400 Diastolic blood pressure 82 mm[Hg] DO Peri Tyson Work Phone: [facility] 01-29-2023 08:55-0400 Heart rate 82 /min DO Peri Tyson Work Phone: [facility] 01-29-2023 08:55-0400 Respiratory rate 16 /min DO Peri Tyson Work Phone: [facility] 01-29-2023 08:55-0400 SaO2% (BldA) [Mass fraction] 98 % DO Peri Tyson Work Phone: [facility] 01-29-2023 08:55-0400 Systolic blood pressure 132 mm[Hg] DO Peri Tyson Work Phone: [facility] 01-12-2023 08:00-0400 Body height 152.4 cm Patsy Blades Other [employer] Other 01-12-2023 08:00-0400 Body mass index (BMI) [Ratio] 47.84 kg/m2 Patys Blades Other [employer] Other 01-12-2023 08:00-0400 Body weight 111.13 kg Patsy Blades Other [employer] Other 01-12-2023 08:00-0400 Diastolic blood pressure 102 mm[Hg] Patsy Blades Other [employer] Other 01-12-2023 08:00-0400 Systolic blood pressure 162 mm[Hg] Patsy Blades Other [employer] Other 12-18-2022 13:38-0400 Diastolic blood pressure 71 mm[Hg] DO Peri Dials Work Phone: [facility] 12-18-2022 13:38-0400 Heart rate 77 /min DO Peri Dials Work Phone: [facility] 12-18-2022 13:38-0400 Inhaled oxygen flow rate 4 L/min DO Peri Dials Work Phone: [facility] 12-18-2022 13:38-0400 Respiratory rate 16 /min DO Peri Dials Work Phone: [facility] 12-18-2022 13:38-0400 SaO2% (BldA) [Mass fraction] 97 % DO Peri Dials Work Phone: [facility] 12-18-2022 13:38-0400 Systolic blood pressure 139 mm[Hg] DO Peri Dials Work Phone: [facility] 12-18-2022 11:03-0400 Body height 152.4 cm DO Peri Tyson Work Phone: [facility] 12-18-2022 11:03-0400 Body mass index (BMI) [Ratio] 44.9 kg/m2 DO Peri Tyson Work Phone: [facility] 12-18-2022 11:03-0400 Body weight 104.32 kg DO Periluis Tyson Work Phone: [facility] 12-18-2022 09:34-0400 Body temperature 98.1 [degF] DO Periluis Tyson Work Phone: [facility] 09-16-2022 11:30-0400 Body height 152.4 cm Peri Tyson Other [employer] Other 09-16-2022 11:30-0400 Body mass index (BMI) [Ratio] 45.19 kg/m2 Peri Tyson Other [employer] Other 09-16-2022 11:30-0400 Body weight 104.96 kg Peri Tyson Other [employer] Other 09-16-2022 11:30-0400 Diastolic blood pressure 92 mm[Hg] Peri Tyson Other [employer] Other 09-16-2022 11:30-0400 Respiratory rate 20 /min Peri Tyson Other [employer] Other 09-16-2022 11:30-0400 SaO2% (BldA) [Mass fraction] 99 % Peri Tyson Other [employer] Other 09-16-2022 11:30-0400 Systolic blood pressure 146 mm[Hg] Peri Tyson Other [employer] Other 07-30-2022 15:04-0400 Body temperature 97.8 [degF] DO Peri Tyson Work Phone: [facility] 07-30-2022 15:04-0400 Body weight 103.41 kg DO Peri Tyson Work Phone: [facility] 07-30-2022 15:04-0400 Diastolic blood pressure 77 mm[Hg] DO Peri Tyson Work Phone: [facility] 07-30-2022 15:04-0400 Heart rate 82 /min DO Peri Tyson Work Phone: [facility] 07-30-2022 15:04-0400 Respiratory rate 16 /min DO Peri Tyson Work Phone: [facility] 07-30-2022 15:04-0400 SaO2% (BldA) [Mass fraction] 97 % DO Peri Tyson Work Phone: [facility] 07-30-2022 15:04-0400 Systolic blood pressure 147 mm[Hg] DO Peri Tyson Work Phone: [facility] 07-07-2022 10:00-0400 Body height 152.4 cm Lulú Ruth Other [employer] Other 07-07-2022 10:00-0400 Body mass index (BMI) [Ratio] 44.33 kg/m2 Lulú Ruth Other [employer] Other 07-07-2022 10:00-0400 Body temperature 97.8 [degF] Lulú Ruth Other [employer] Other 07-07-2022 10:00-0400 Body weight 102.97 kg Lulú Ruth Other [facility] [employer] Other 07-07-2022 10:00-0400 Diastolic blood pressure 62 mm[Hg] Lulú Ruth Other [employer] Other 07-07-2022 10:00-0400 SaO2% (BldA) [Mass fraction] 98 % Lulú Ruth Other [employer] Other 07-07-2022 10:00-0400 Systolic blood pressure 108 mm[Hg] Lulú Ruth Other [employer] Other 05-12-2022 15:11-0500 Diastolic blood pressure 59 mm[Hg] DO Peri Dials Work Phone: [facility] 05-12-2022 15:11-0500 Heart rate 65 /min DO Peri Dials Work Phone: [facility] 05-12-2022 15:11-0500 Inhaled oxygen flow rate 4 L/min DO Peri Dials Work Phone: [facility] 05-12-2022 15:11-0500 Respiratory rate 18 /min DO Peri Dials Work Phone: [facility] 05-12-2022 15:11-0500 SaO2% (BldA) [Mass fraction] 98 % DO Peri Tyson Work Phone: [facility] 05-12-2022 15:11-0500 Systolic blood pressure 120 mm[Hg] DO Peri Tyson Work Phone: [facility] 05-12-2022 14:20-0500 Body temperature 98 [degF] DO Peri Dials Work Phone: [facility] 05-07-2022 11:00-0500 Body height 152.4 cm Peri Dials Other [employer] Other 05-07-2022 11:00-0500 Body mass index (BMI) [Ratio] 45.66 kg/m2 Periroyce Tyson Other [employer] Other 05-07-2022 11:00-0500 Body weight 106.05 kg Periroyce Tyson Other [employer] Other 05-07-2022 11:00-0500 Diastolic blood pressure 84 mm[Hg] Periroyce Tyson Other [employer] Other 05-07-2022 11:00-0500 Respiratory rate 20 /min Peri Tyson Other [employer] Other 05-07-2022 11:00-0500 SaO2% (BldA) [Mass fraction] 99 % Peri Marbella Other [employer] Other 05-07-2022 11:00-0500 Systolic blood pressure 136 mm[Hg] Peri Tyson Other [employer] Other 04-23-2022 10:55-0500 Body height 152.4 cm DO Giovanni Josh Work Phone: [facility] 04-23-2022 10:55-0500 Body weight 106.3 kg DO Giovanni Josh Work Phone: [facility] 04-23-2022 10:55-0500 Diastolic blood pressure 82 mm[Hg] DO Giovanni Josh Work Phone: [facility] 04-23-2022 10:55-0500 Heart rate 75 /min DO Giovanni Josh Work Phone: [facility] 04-23-2022 10:55-0500 Inhaled oxygen flow rate 5 L/min DO Giovanni Tyler Work Phone: [facility] 04-23-2022 10:55-0500 Respiratory rate 20 /min DO Giovanni Tyler Work Phone: [facility] 04-23-2022 10:55-0500 SaO2% (BldA) [Mass fraction] 100 % DO Giovanni Tyler Work Phone: [facility] 04-23-2022 10:55-0500 Systolic blood pressure 145 mm[Hg] DO Giovanni Tyler Work Phone: [facility] 02-03-2022 11:00-0400 Body height 152.4 cm Peri Tyson Other [employer] Other 02-03-2022 11:00-0400 Body mass index (BMI) [Ratio] 46.59 kg/m2 Peri Tyson Other [employer] Other 02-03-2022 11:00-0400 Body weight 108.23 kg Peri Tyson Other [employer] Other 02-03-2022 11:00-0400 Diastolic blood pressure 80 mm[Hg] Peri Tyson Other [employer] Other 02-03-2022 11:00-0400 Respiratory rate 20 /min Peri Tyson Other [employer] Other 02-03-2022 11:00-0400 SaO2% (BldA) [Mass fraction] 99 % Periroyce Tyson Other [employer] Other 02-03-2022 11:00-0400 Systolic blood pressure 122 mm[Hg] Peri Tyson Other [employer] Other 12-23-2021 14:30-0400 Body height 152.4 cm Peri Tyson Other [employer] Other 12-23-2021 14:30-0400 Body mass index (BMI) [Ratio] 47.28 kg/m2 Peri Tyson Other [employer] Other 12-23-2021 14:30-0400 Body weight 109.82 kg Periluis Tyson Other [employer] Other 12-23-2021 14:30-0400 Diastolic blood pressure 61 mm[Hg] Peri Tyson Other [employer] Other 12-23-2021 14:30-0400 Respiratory rate 20 /min Periroyce Tyson Other [employer] Other 12-23-2021 14:30-0400 SaO2% (BldA) [Mass fraction] 100 % Periroyce Tyson Other [employer] Other 12-23-2021 14:30-0400 Systolic blood pressure 109 mm[Hg] Peri Tyson Other [employer] Other 10-23-2021 13:14-0400 Body temperature 97 [degF] DO Giovanni Tyler Work Phone: [facility] 10-23-2021 13:14-0400 Body weight 110.67 kg DO Giovanni Tyler Work Phone: [facility] 10-23-2021 13:14-0400 Diastolic blood pressure 76 mm[Hg] DO Giovanni Tyler Work Phone: [facility] 10-23-2021 13:14-0400 Heart rate 70 /min DO Giovanni Josh Work Phone: [facility] 10-23-2021 13:14-0400 Respiratory rate 16 /min DO Giovanni Tyler Work Phone: [facility] 10-23-2021 13:14-0400 SaO2% (BldA) [Mass fraction] 97 % DO Giovanni Tyler Work Phone: [facility] 10-23-2021 13:14-0400 Systolic blood pressure 148 mm[Hg] DO Giovanni Tyler Work Phone: [facility] 10-21-2021 14:45-0400 Body height 152.4 cm Giovanni Tyler Other [employer] Other 10-21-2021 14:45-0400 Body mass index (BMI) [Ratio] 48.08 kg/m2 Giovanni Tyler Other [employer] Other 10-21-2021 14:45-0400 Body weight 111.68 kg Giovanni Tyler Other [employer] Other 10-21-2021 14:45-0400 Diastolic blood pressure 84 mm[Hg] Giovanni Tyler Other [employer] Other 10-21-2021 14:45-0400 Respiratory rate 20 /min Giovanni Tyler Other [employer] Other 10-21-2021 14:45-0400 SaO2% (BldA) [Mass fraction] 99 % Giovanni Tyler Other [facility] [employer] Other 10-21-2021 14:45-0400 Systolic blood pressure 158 mm[Hg] Giovanni Tyler Other [facility] [employer] Other 09-26-2021 11:50-0400 Diastolic blood pressure 82 mm[Hg] DO Giovanni Tyler Work Phone: [facility] 09-26-2021 11:50-0400 Heart rate 75 /min DO Giovanni Tyler Work Phone: [facility] 09-26-2021 11:50-0400 Inhaled oxygen flow rate 5 L/min DO Giovanni Tyler Work Phone: [facility] 09-26-2021 11:50-0400 Respiratory rate 16 /min DO Giovanni Tyler Work Phone: [facility] 09-26-2021 11:50-0400 SaO2% (BldA) [Mass fraction] 100 % DO Giovanni Tyler Work Phone: [facility] 09-26-2021 11:50-0400 Systolic blood pressure 130 mm[Hg] DO Giovanni Tyler Work Phone: [facility] 09-26-2021 09:07-0400 Body height 152.4 cm DO Giovanni Tyler Work Phone: [facility] 09-26-2021 09:07-0400 Body mass index (BMI) [Ratio] 48.2 kg/m2 DO Giovanni Tyler Work Phone: [facility] 09-26-2021 09:07-0400 Body weight 112.03 kg DO Giovanni Tyler Work Phone: [facility] 08-22-2021 15:00-0400 Body height 152.4 cm Nicko Mckeon Other [employer] Other 08-22-2021 15:00-0400 Body mass index (BMI) [Ratio] 49.21 kg/m2 Nicko Mckeon Other [employer] Other 08-22-2021 15:00-0400 Body weight 114.31 kg Nicko Mckeon Other [employer] Other 08-22-2021 15:00-0400 Diastolic blood pressure 80 mm[Hg] Nicko Mckeon Other [employer] Other 08-22-2021 15:00-0400 SaO2% (BldA) [Mass fraction] 97 % Nicko Mckeon Other [employer] Other 08-22-2021 15:00-0400 Systolic blood pressure 160 mm[Hg] Nicko Mckeon Other [employer] Other 08-16-2021 10:08-0400 Body height 152.4 cm DO Giovanni Josh Work Phone: [facility] 08-07-2021 10:00-0400 Body height 152.4 cm Giovanni Tyler Other [employer] Other 08-07-2021 10:00-0400 Body mass index (BMI) [Ratio] 50.03 kg/m2 Giovanni Tyler Other [employer] Other 08-07-2021 10:00-0400 Body weight 116.21 kg Giovanni Tyler Other [employer] Other 08-07-2021 10:00-0400 Diastolic blood pressure 86 mm[Hg] Giovanni Tyler Other [employer] Other 08-07-2021 10:00-0400 Respiratory rate 20 /min Giovanni Tyler Other [employer] Other 08-07-2021 10:00-0400 SaO2% (BldA) [Mass fraction] 99 % Giovanniamber Tyler Other [employer] Other 08-07-2021 10:00-0400 Systolic blood pressure 126 mm[Hg] Giovanni Tyler Other [employer] Other 07-22-2021 10:30-0400 Body height 152.4 cm Giovanni Tyler Other [employer] Other 07-22-2021 10:30-0400 Body mass index (BMI) [Ratio] 49.05 kg/m2 Giovanni Tyler Other [employer] Other 07-22-2021 10:30-0400 Body weight 113.94 kg Giovanni Tyler Other [employer] Other 07-22-2021 10:30-0400 Diastolic blood pressure 81 mm[Hg] Giovanni Tyler Other [employer] Other 07-22-2021 10:30-0400 Respiratory rate 20 /min Giovanni Tyler Other [employer] Other 07-22-2021 10:30-0400 SaO2% (BldA) [Mass fraction] 99 % Giovanni Tyler Other [employer] Other 07-22-2021 10:30-0400 Systolic blood pressure 126 mm[Hg] Giovanniamber IzaguirreJosh Other [employer] Other 06-20-2021 10:45-0500 Body height 152.4 cm Giovanni Tyler Other [employer] Other 06-20-2021 10:45-0500 Body mass index (BMI) [Ratio] 48.43 kg/m2 Giovanni Tyler Other [employer] Other 06-20-2021 10:45-0500 Body weight 112.49 kg Giovanni Tyler Other [employer] Other 06-20-2021 10:45-0500 Diastolic blood pressure 92 mm[Hg] Giovanni Tyler Other [employer] Other 06-20-2021 10:45-0500 Respiratory rate 20 /min Giovanni Tyler Other [employer] Other 06-20-2021 10:45-0500 SaO2% (BldA) [Mass fraction] 99 % Giovanni Tyler Other [employer] Other 06-20-2021 10:45-0500 Systolic blood pressure 136 mm[Hg] Giovanni Tyler Other [employer] Other 05-23-2021 10:30-0500 Body height 152.4 cm Giovanni Tylre Other [employer] Other 05-23-2021 10:30-0500 Body mass index (BMI) [Ratio] 48.23 kg/m2 Giovanni Tyler Other [employer] Other 05-23-2021 10:30-0500 Body weight 112.04 kg Giovanni Tyler Other [employer] Other 05-23-2021 10:30-0500 Diastolic blood pressure 88 mm[Hg] Giovanni Tyler Other [employer] Other 05-23-2021 10:30-0500 Respiratory rate 20 /min Giovanni Tyler Other [employer] Other 05-23-2021 10:30-0500 SaO2% (BldA) [Mass fraction] 99 % Giovanni Tyler Other [employer] Other 05-23-2021 10:30-0500 Systolic blood pressure 134 mm[Hg] Giovanni Tyler Other [employer] Other 05-01-2021 14:15-0500 Body height 152.4 cm Giovanni Tyler Other [employer] Other 05-01-2021 14:15-0500 Body mass index (BMI) [Ratio] 48.23 kg/m2 Giovanni Tyler Other [employer] Other 05-01-2021 14:15-0500 Body weight 112.04 kg Giovanni Tyler Other [employer] Other 05-01-2021 14:15-0500 Diastolic blood pressure 84 mm[Hg] Giovanni Tyler Other [employer] Other 05-01-2021 14:15-0500 Respiratory rate 20 /min Giovanni Tyler Other [employer] Other 05-01-2021 14:15-0500 SaO2% (BldA) [Mass fraction] 99 % Giovanni Tyler Other [employer] Other 05-01-2021 14:15-0500 Systolic blood pressure 116 mm[Hg] Giovanni Tyler Other [employer] Other 04-02-2021 11:00-0500 Body height 152.4 cm Giovanni Tyler Other [employer] Other 04-02-2021 11:00-0500 Body mass index (BMI) [Ratio] 47.84 kg/m2 Giovanni Tyler Other [employer] Other 04-02-2021 11:00-0500 Body weight 111.13 kg Giovanni Tyler Other [employer] Other 04-02-2021 11:00-0500 Diastolic blood pressure 86 mm[Hg] Giovanni Tyler Other [employer] Other 04-02-2021 11:00-0500 Respiratory rate 20 /min Giovanni Tyler Other [employer] Other 04-02-2021 11:00-0500 SaO2% (BldA) [Mass fraction] 99 % Giovanni Tyler Other [employer] Other 04-02-2021 11:00-0500 Systolic blood pressure 136 mm[Hg] Giovanni Tyler Other [employer] Other 03-04-2021 10:30-0500 Body height 152.4 cm Domenico Whitmore Other [employer] Other 03-04-2021 10:30-0500 Body mass index (BMI) [Ratio] 46.87 kg/m2 Domenico Millerritu Other [employer] Other 03-04-2021 10:30-0500 Body temperature 96.3 [degF] Domenico Whitmore Other [employer] Other 03-04-2021 10:30-0500 Body weight 108.86 kg Domenico Whitmore Other [employer] Other 03-04-2021 10:30-0500 Diastolic blood pressure 60 mm[Hg] Domenico Sanchezleonor Other [employer] Other 03-04-2021 10:30-0500 SaO2% (BldA) [Mass fraction] 99 % Domenico Sanchezleonor Other [employer] Other 03-04-2021 10:30-0500 Systolic blood pressure 90 mm[Hg] Domenico Bolivarflora Other [employer] Other Encounters Encounter Date Encounter Type Care Provider Facility Start: 04-28-2023 ambulatory Peri Tyson Facility :[facility] Start: 04-20-2023 Telephone encounter Peri Tyson [facility] Start: 04-20-2023 End: 04-20-2023 ambulatory RACHEL TSAI Not Available Start: 04-15-2023 End: 04-15-2023 ambulatory Peri Tyson Other [employer] Other Start: 04-15-2023 [facility] Start: 03-24-2023 End: 03-24-2023 ambulatory Peri Tyson Other [employer] Other Start: 03-24-2023 Telephone encounter Peri Tyson [facility] [place] Start: 03-19-2023 End: 03-19-2023 ambulatory Peri [place]bella Other [employer] Other Start: 03-19-2023 Telephone encounter Peri Tyson [facility] Start: 03-04-2023 ambulatory Roxane Sanju Facility:[facility] Start: 03-04-2023 End: 03-04-2023 ambulatory DO Periluis Tyson Work Phone: [facility] Work Phone: Start: 03-04-2023 End: 03-04-2023 Registered Recurring DO Peir Tyson Work Phone: [facility]-Cancer Center Work Phone: Start: 02-23-2023 End: 02-23-2023 ambulatory Peri Marbella Other [employer] Other Start: 02-23-2023 Telephone encounter Peri Tyson [facility] [place] Start: 02-19-2023 End: 02-19-2023 ambulatory Peri Luis Tyson Facility:[facility] Start: 02-19-2023 End: 02-19-2023 Patient encounter procedure DO Periluis Tyson Work Phone: [facility]-Ultrasound [place] Work Phone: Start: 02-12-2023 Telephone encounter Peri Tyson [facility] Start: 02-12-2023 End: 02-12-2023 ambulatory Peri Luis Tyson [employer] Other Start: 02-12-2023 End: 02-12-2023 Admission to same day surgery center DO Peri Marbella Work Phone: [facility]-CT Scan [place] Work Phone: Start: 02-09-2023 ambulatory Peri Luis Tyson Facility :[facility] Start: 02-06-2023 End: 02-06-2023 ambulatory Periluis Tyson Other [employer] Other Start: 02-06-2023 Encounter for genera l adult medical examination without abnormal findings Peri Tyson [facility] Start: 02-06-2023 Periodic preventive med est patient 40-64yrs Peri Tyson [facility] Start: 02-04-2023 Telephone encounter Peri Tyson [facility] Start: 02-04-2023 End: 02-04-2023 ambulatory Peri Luis Tyson Facility:[facility] Start: 02-04-2023 End: 02-04-2023 ambulatory DO Peri A Tyson Work Phone: [facility] Work Phone: Start: 02-04-2023 End: 02-04-2023 Patient encounter procedure DO Periluis Tyson Work Phone: [facility]-MRI [address] Work Phone: Start: 02-03-2023 End: 02-03-2023 ambulatory Peri Tyson Other [employer] Other Start: 02-03-2023 Telephone encounter Peri Tyson [facility] Start: 01-29-2023 End: 01-29-2023 ambulatory DO Peri A Tyson Work Phone: [facility] Work Phone: Start: 01-29-2023 End: 01-29-2023 Registered Recurring DO Peri Marbella Work Phone: [facility]-Cancer Center Work Phone: Start: 01-21-2023 End: 01-21-2023 ambulatory Peri Tyson Other [employer] Other Start: 01-21-2023 Telephone encounter Peri Tyson [facility] Start: 01-19-2023 End: 01-19-2023 ambulatory Peri Tyson Other [employer] Other Start: 01-19-2023 Telephone encounter Peri Tyson [facility] Start: 01-15-2023 End: 01-15-2023 ambulatory Patsy Blades Other [employer] Other Start: 01-15-2023 Telephone encounter Patsy Blades [facility] Start: 01-12-2023 End: 01-12-2023 ambulatory Patsy Blades Other [employer] Other Start: 01-12-2023 Office outpatient ne w 45 minutes Patsy Blades [facility] Neurosurgery Start: 01-12-2023 Telephone encounter Pasty Blades F PG [facility] Neurosurgery Start: 12-24-2022 End: 12-24-2022 ambulatory Peri Tyson Other [employer] Other Start: 12-24-2022 Telephone encounter Peri Tyson [facility] Start: 12-18-2022 End: 12-18-2022 ambulatory Peri Luis Tyson Facility:[facility] Start: 12-18-2022 End: 12-18-2022 Admission to same day surgery center DO Peri Tyson Work Phone: [facility]-Surgery Center [place] Start: 12-18-2022 End: 12-18-2022 ambulatory DO Peri A Tyson Work Phone: [facility] Work Phone: Start: 12-16-2022 End: 12-16-2022 ambulatory Periluis Tyson Other [employer] Other Start: 12-16-2022 Telephone encounter Peri Marbella [facility] Start: 12-10-2022 End: 12-10-2022 ambulatory Peri Marbella Other [employer] Other Start: 12-10-2022 Telephone encounter Peri Marbella [facility] Start: 12-05-2022 End: 12-05-2022 ambulatory Peri A Marbella Facility:[facility] Start: 12-05-2022 End: 12-05-2022 Departed Referred DO Peri Marbella Work Phone: [facility]-Pre-Surgical Testing Work Phone: Start: 12-05-2022 End: 12-05-2022 Patient encounter procedure DO Peri Marbella Work Phone: [facility]-Pre-Surgical Testing Work Phone: Start: 12-04-2022 End: 12-04-2022 ambulatory Peri Luis Tyson Facility:[facility] Start: 12-04-2022 End: 12-04-2022 ambulatory DO Peri A Marbella Work Phone: [facility] Work Phone: Start: 12-04-2022 End: 12-04-2022 Patient encounter procedure DO Peri Marbella Work Phone: [facility]-MRI [place] Work Phone: Start: 11-20-2022 End: 11-20-2022 ambulatory DO Peri A Marbella Work Phone: [facility] Work Phone: Start: 11-20-2022 End: 11-20-2022 Discharged Recurring DO Peri Marbella Work Phone: [facility]-Physical Therapy [place] Start: 11-17-2022 End: 11-17-2022 ambulatory Peri Marbella Other [employer] Other Start: 11-17-2022 Telephone encounter Periluis Tyson [facility] [place] Start: 10-27-2022 End: 10-27-2022 ambulatory Peri Tyson Other [employer] Other Start: 10-27-2022 Telephone encounter Peri Marbella [facility] [place] Start: 10-13-2022 End: 10-13-2022 ambulatory Peri Marbella Other [employer] Other Start: 10-13-2022 Telephone encounter Periluis Tyson [facility] [place] Start: 10-10-2022 End: 10-10-2022 ambulatory Peri Marbella Other [employer] Other Start: 10-10-2022 Telephone encounter Periluis Tyson [facility] [place] Start: 2022 End: 2022 ambulatory Peri Marbella Other [employer] Other Start: 2022 Telephone encounter Peri Tyson [facility] [place] Start: 09-30-2022 End: 09-30-2022 ambulatory Periluis Tyson Other [employer] Other Start: 09-30-2022 Telephone encounter Periluis Tyson [facility] [place] Start: 09-24-2022 End: 09-24-2022 ambulatory Peri Tyson Other [employer] Other Start: 09-24-2022 Telephone encounter Periluis Tyson [facility] [place] Start: 09-16-2022 Office outpatient vi sit 25 minutes Periluis Tyson [facility] Family [facility] [place] Start: 09-16-2022 End: 09-16-2022 ambulatory DO Peri Luis Tyson Work Phone: [employer] Other Start: 09-16-2022 End: 09-16-2022 Patient encounter procedure DO Peri Marbella Work Phone: [facility]-X-Ray [facility] Start: 09-09-2022 End: 09-09-2022 ambulatory Peri Marbella Other [employer] Other Start: 09-09-2022 Telephone encounter Peri Marbella [facility] Start: 09-05-2022 Registered Recurring DO Peri Marbella Work Phone: [facility]-Physical Therapy [address] Start: 08-12-2022 End: 08-12-2022 ambulatory Peri Marbella Other [employer] Other Start: 08-12-2022 Telephone encounter Peri Marbella [facility] Start: 08-07-2022 End: 08-07-2022 ambulatory Peri Luis Tyson Facility:[facility] Start: 08-07-2022 End: 08-07-2022 ambulatory DO Peri Luis Tyson Work Phone: [facility] Work Phone: Start: 08-07-2022 End: 08-07-2022 Patient encounter procedure DO Peri Marbella Work Phone: [facility]-Lab [place] Work Phone: Start: 08-01-2022 End: 08-01-2022 ambulatory Peri Marbella Other [employer] Other Start: 08-01-2022 Telephone encounter Peri Tyson [facility] Start: 07-30-2022 Registered Recurring DO Peri Marbella Work Phone: [facility]-Cancer Center Work Phone: Start: 07-18-2022 End: 07-18-2022 ambulatory Peri Tyson Other [employer] Other Start: 07-18-2022 Telephone encounter Peri Tyson [facility] [place] Start: 07-17-2022 End: 07-17-2022 ambulatory Peri Tyson Other [employer] Other Start: 07-17-2022 Telephone encounter Peri Tyson [facility] [place] Start: 07-14-2022 End: 07-14-2022 ambulatory Peri Tyson Other [employer] Other Start: 07-14-2022 Telephone encounter Peri Tyson [facility] [place] Start: 07-07-2022 Follow-up encounter Lulú Gaytan [facility] Start: 07-07-2022 End: 07-07-2022 ambulatory Peri Tyson [facility] [employer] Other Start: 07-07-2022 End: 07-07-2022 Patient encounter procedure DO Peri Marbella Work Phone: [facility]-Ultrasound [facility] Start: 07-03-2022 End: 07-04-[address] SANAM LINARES . Facility: Start: 06-30-2022 End: 06-30-2022 ambulatory Peri Tyson Other [employer] Other Start: 06-30-2022 Telephone encounter Peri Tyson [facility] [place] Start: 05-23-2022 Telephone encounter Peri Tyson [facility] [place] Start: 05-23-2022 End: 05-23-2022 ambulatory Peri Tyson Facility:[facility] Start: 05-23-2022 End: 05-23-2022 ambulatory DO Peri Tyson Work Phone: [facility] Work Phone: Start: 05-23-2022 End: 05-23-2022 Patient encounter procedure DO Peri Tyson Work Phone: [facility] Work Phone: Start: 05-15-2022 End: 05-15-2022 ambulatory Periluis Tyson Other [employer] Other Start: 05-15-2022 Telephone encounter Peri Tyson [facility] [place] Start: 05-12-2022 End: 05-12-2022 ambulatory Periluis Tyson Other [employer] Other Start: 05-12-2022 Telephone encounter Peri Tyson [facility] [place] Start: 05-12-2022 Registered Recurring DO Peri Tyson Work Phone: [facility]-Cancer Center Work Phone: Start: 05-09-2022 End: 05-09-2022 ambulatory Peri Luis Tyson Facility:[facility] Start: 05-09-2022 End: 05-09-2022 Patient encounter procedure DO Peri Tyson Work Phone: [facility]-Lab [place] Work Phone: Start: 05-07-2022 End: 05-07-2022 ambulatory Peri Tyson Other [employer] Other Start: 05-07-2022 Office outpatient vi sit 25 minutes Peri Tyson [facility] [place] Start: 05-06-2022 End: 05-07-[address] SANAM LINARES . Facility: Start: 04-23-2022 End: 04-23-2022 ambulatory DO Giovanni Tyler Work Phone: [facility] Work Phone: Start: 04-23-2022 End: 04-23-2022 Registered Recurring DO Giovanni Tyler Work Phone: [facility]-Cancer Center Work Phone: Start: 04-22-2022 End: 04-22-2022 ambulatory Peri Tyson Other [employer] Other Start: 04-22-2022 Telephone encounter Peri Tyson [facility] [place] Start: 04-21-2022 End: 04-21-2022 ambulatory Peri Tyson Other [employer] Other Start: 04-21-2022 Telephone encounter Peri Tyson [facility] [place] Start: 04-17-2022 End: 04-17-2022 ambulatory Peri Tyson Other [employer] Other Start: 04-17-2022 Telephone encounter Peri Tyson [facility] [place] Start: 04-02-2022 End: 04-02-2022 ambulatory Peri Tyson Other [employer] Other Start: 04-02-2022 Telephone encounter Peri Tyson [facility] [place] Start: 03-31-2022 End: 03-31-2022 ambulatory Peri Ytson Other [employer] Other Start: 03-31-2022 Telephone encounter Peri Tyson [facility] [place] Start: 03-17-2022 End: 03-17-2022 ambulatory Peri Tyson Other [employer] Other Start: 03-17-2022 Telephone encounter Peri Tyson [facility] [place] Start: 03-10-2022 End: 03-10-2022 ambulatory Periluis Tyson Other [employer] Other Start: 03-10-2022 Telephone encounter Peri Tyson [facility] [place] Start: 02-19-2022 End: 02-19-2022 ambulatory DO Giovanni Tyler Work Phone: [facility] Work Phone: Start: 02-19-2022 End: 02-19-2022 Patient encounter procedure DO Giovanni Tyler Work Phone: [facility]-Sleep Lab Start: 02-18-2022 End: 02-18-2022 ambulatory Periroyce Tyson Other [employer] Other Start: 02-18-2022 Telephone encounter Periroyce Tyson [facility] Start: 02-13-2022 End: 02-13-2022 ambulatory Periluis Tyson Other [employer] Other Start: 02-13-2022 Telephone encounter Periroyce Tyson [facility] [place] Start: 02-11-2022 End: 02-11-2022 ambulatory Periluis Tyson Other [employer] Other Start: 02-11-2022 Telephone encounter Periluis Tyson [facility] Start: 02-10-2022 End: 02-10-2022 ambulatory Periluis Tyson Other [employer] Other Start: 02-10-2022 Telephone encounter Periroyce Tyson [facility] [place] Start: 02-03-2022 Office outpatient vi sit 25 minutes Peri Tyson [facility] Start: 02-03-2022 End: 02-03-2022 ambulatory DO Giovanni Izaguirreahan Work Phone: [employer] Other Start: 02-03-2022 End: 02-03-2022 Departed Referred DO Giovanni Tyler Work Phone: [facility]-Lab [facility] Start: 01-22-2022 End: 01-22-2022 ambulatory Periluis Tyson Other [employer] Other Start: 01-22-2022 Telephone encounter Peri Tyson [facility] [place] Start: 12-30-2021 End: 12-30-2021 ambulatory Peri Tyson Other [employer] Other Start: 12-30-2021 Telephone encounter Peri Tyson [facility] [place] Start: 12-23-2021 End: 12-23-2021 ambulatory Peri Tyson Other [employer] Other Start: 12-23-2021 Office outpatient vi sit 25 minutes Peri Tyson [facility] [place] Start: 12-23-2021 End: 12-23-2021 Departed Referred DO Giovanni Tyler Work Phone: [facility] Start: 11-29-2021 End: 11-29-2021 ambulatory Josafat Nunes Other [employer] Other Start: 11-29-2021 Telephone encounter Josafat Nunes [facility] [place] Start: 11-05-2021 End: 11-05-2021 ambulatory Giovanni Tyler Other [employer] Other Start: 11-05-2021 Telephone encounter Giovanni Tyler [facility] [place] Start: 11-04-2021 End: 11-04-2021 ambulatory Adore Barroso Other [employer] Other Start: 11-04-2021 Telephone encounter Adore Cooklakhwinder [facility] [place] Start: 10-31-2021 End: 10-31-2021 ambulatory Adore Barroso Other [employer] Other Start: 10-31-2021 Telephone encounter dAore Leighflora [facility] [place] Start: 10-23-2021 Registered Recurring DO Giovanni Josh Work Phone: [facility]-Cancer Center Start: 10-21-2021 End: 10-21-2021 Patient encounter procedure DO Giovanni Tyler Work Phone: [facility]-Lab [facility] [place] Start: 10-21-2021 End: 10-21-2021 ambulatory Giovanni Tyler Other [employer] Other Start: 10-21-2021 Office outpatient vi sit 25 minutes Giovanni Tyler [facility] [place] Start: 10-03-2021 End: 10-03-2021 ambulatory Giovanni Tyler Other [employer] Other Start: 10-03-2021 Telephone encounter Giovanni Gaytan [facility] [place] Start: 09-26-2021 End: 09-26-2021 Admission to same day surgery center DO Giovanni Josh Work Phone: [facility]-CT Scan [facility] [place] Start: 09-19-2021 End: 09-19-2021 ambulatory Giovanni Tyler Other [employer] Other Start: 09-19-2021 Telephone encounter Giovanni Gaytan [facility] [place] Start: 08-23-2021 End: 08-23-2021 ambulatory Nicko Mckeon Other [employer] Other Start: 08-23-2021 Telephone encounter Nicko Mckeon [facility] Start: 08-22-2021 End: 08-22-2021 ambulatory Nicko Mckeon Other [employer] Other Start: 08-22-2021 Office consultation new/estab patient 60 min Nicko Mckeon [facility] Start: 08-08-2021 End: 08-08-2021 ambulatory Giovanni Tyler Other [employer] Other Start: 08-08-2021 Telephone encounter Giovanni Izaguirreahan [facility] [place] Start: 08-07-2021 End: 08-07-2021 ambulatory Giovanni Josh Other [employer] Other Start: 08-07-2021 Office outpatient vi sit 15 minutes Giovanni Josh [facility] [place] Start: 08-07-2021 Telephone encounter Giovanni Josh [facility] [place] Start: 08-01-2021 End: 08-01-2021 ambulatory Giovanni Josh Other [employer] Other Start: 08-01-2021 Telephone encounter Giovanni Josh [facility] [place] Start: 07-29-2021 End: 07-29-2021 ambulatory Giovanni Josh Other [employer] Other Start: 07-29-2021 Telephone encounter Giovanniamber IzaguirreJosh [facility] [place] Start: 07-22-2021 End: 07-22-2021 ambulatory Giovanni Josh Other [employer] Other Start: 07-22-2021 Office outpatient vi sit 25 minutes Giovanni Josh [facility] [place] Start: 07-03-2021 End: 07-03-2021 ambulatory Giovanni Josh Other [employer] Other Start: 07-03-2021 Telephone encounter Giovanni Josh [facility] [place] Start: 06-25-2021 End: 06-25-2021 ambulatory Giovanni Tyler Other [employer] Other Start: 06-25-2021 Telephone encounter Giovanni Tyler [facility] [place] Start: 06-20-2021 End: 06-20-2021 ambulatory Giovanni Tyler Other [employer] Other Start: 06-20-2021 Office outpatient vi sit 25 minutes Giovanni Tyler [facility] [place] Start: 06-06-2021 End: 06-06-2021 ambulatory Giovanni Tyler Other [employer] Other Start: 06-06-2021 Telephone encounter Giovanni Tyler [facility] [place] Start: 06-05-2021 End: 06-05-2021 ambulatory Giovanni Tyler Other [employer] Other Start: 06-05-2021 Telephone encounter Giovanni Tyler [facility] [place] Start: 05-23-2021 End: 05-23-2021 ambulatory Giovanni Tyler Other [employer] Other Start: 05-23-2021 Patient encounter procedure Giovanni Tyler [facility] [place] Start: 05-23-2021 Telephone encounter Giovanni Tyler [facility] [place] Start: 05-15-2021 End: 05-15-2021 ambulatory Giovanni Tyler Other [employer] Other Start: 05-15-2021 Telephone encounter Giovanni Tyler [facility] [place] Start: 05-02-2021 End: 05-02-2021 ambulatory Giovanni Tyler Other [employer] Other Start: 05-02-2021 Telephone encounter Giovanni Josh [facility] [place] Start: 05-01-2021 End: 05-01-2021 ambulatory Giovanni Tyler Other [employer] Other Start: 05-01-2021 Office outpatient vi sit 15 minutes Giovanni Tyler [facility] [place] Start: 04-30-2021 End: 04-30-2021 ambulatory Giovanni Tyler Other [employer] Other Start: 04-30-2021 Telephone encounter Giovanni Gyatan [facility] [place] Start: 04-29-2021 End: 04-29-2021 ambulatory Giovanni Tyler Other [employer] Other Start: 04-29-2021 Telephone encounter Giovanni Tyler [facility] [place] Start: 04-02-2021 End: 04-02-2021 ambulatory Giovanni Tyler Other [employer] Other Start: 04-02-2021 Office outpatient vi sit 25 minutes Giovanni Tyler [facility] [place] Start: 03-25-2021 End: 03-25-2021 ambulatory Giovanni Tyler Other [employer] Other Start: 03-25-2021 Telephone encounter Giovanni Gaytan [facility] [place] Start: 03-21-2021 End: 03-21-2021 ambulatory Giovanni Tyler Other [employer] Other Start: 03-21-2021 Telephone encounter Giovanni Gaytan [facility] [place] Start: 03-04-2021 End: 03-04-2021 ambulatory Domenico Whitmore Other [employer] Other Start: 03-04-2021 Office outpatient ne w 45 minutes Domenico Whitmore [facility] Vascular Surgery Start: 02-27-2021 End: 02-27-2021 ambulatory Giovanni Tyler Other [employer] Other Start: 02-27-2021 Telephone encounter Giovanni Gaytan [facility] [place] Start: 02-20-2021 End: 02-20-2021 ambulatory Giovanni Tyler Other [employer] Other Start: 02-20-2021 Telephone encounter Giovanni Gaytan [facility] [place] Procedures Date Procedure Procedure Detail Performing Clinician Start: 02-19-2023 Pulse volume recorder pneumoplethysmography DO Peri Dogster Phone: Start: 02-12-2023 Bone marrow sampling DO Peri Dogster Phone: Start: 02-06-2023 Radiologic examination, osseous survey, complete DO Peri Dogster Phone: Start: 02-04-2023 MRI of left hip DO Peri Dogster Phone: Start: 12-18-2022 Phacoemulsification of cataract with intraocular lens implantation DO Peri Dogster Phone: Start: 12-04-2022 MR lumbar spine wo con DO Peri Dogster Phone: Start: 09-16-2022 Plain X-ray of left hip DO Peri Dogster Phone: Start: 07-07-2022 Duplex scan of lower limb veins DO Cecilia a Dogster Phone: Start: 05-23-2022 Screening mammography of bilateral breasts DO Peri Dogster Phone: Start: 04-25-2022 Pelvis X-ray DO Peri Dogster Phone: Start: 04-25-2022 X-ray of lumbar spine, two or three views DO Peri Dogster Phone: Start: 02-03-2022 Urine culture DO Giovanni Tyler Work Phone: Start: 09-26-2021 Bone marrow sampling DO Giovanni Tyler Work Phone: Start: 08-22-2021 Radiologic examination, osseous survey, complete DO Giovanni Tyler Work Phone: Urine culture DO Giovanni jacobsen Work Phone: Urine culture DO Giovanni jacobsen Work Phone: Plan of Treatment Date Care Activity Detail Author Start: 02-12-2023 End: 02-12-2023 [facility] Start: 12-18-2022 End: 12-18-2022 [facility] Start: 08-07-2022 Insulin C-peptide measurement [facility] Start: 05-12-2022 [facility] Start: 05-09-2022 [facility] Start: 05-05-2022 [facility] Start: 04-30-2022 [facility] Start: 09-26-2021 End: 09-26-2021 [facility] Work Phone: Bacteria identified in Urine by Culture [facility] Bone marrow sampling [facility] Comprehensive metabo lic 1999 panel - Serum or Plasma [facility] Work Phone: Comprehensive metabo lic 2000 panel - Serum or Plasma [facility] Comprehensive metabo lic 2000 panel - Serum or Plasma [facility] Work Phone: Ferritin [Mass/volum e] in Serum or Plasma [facility] Work Phone: Ferritin [Mass/volum e] in Serum or Plasma [facility] Patient Education [facility] Work Phone: Patient referral [facility] Work Phone: Radiologic examinati on osseous survey compl [facility] XR Lumbar spine 2 or 3 Views [facility]vis [facility] Immunizations Immunization Date Immunization Notes Care Provider Ling corona 01-28-2023 Arexvy-For documentation purposes only Periroyce Tyson Other [employer] Other 12-12-2022 influenza, injectabl e, quadrivalent, preservative free Peri Marbella Other [employer] Other 12-29-2021 COVID-19 Pfizer (bivalent) Periluis Tyson Other [employer] Other 12-25-2021 tetanus toxoid, redu alex diphtheria toxoid, and acellular pertussis vaccine, adsorbed Periroyce Tyson Other [employer] Other 12-25-2021 influenza, seasonal, injectable Peri Marbella Other [employer] Other 10-28-2021 COVID-19 Vaccine Moderna - Documentation Purposes Only Peri Tyson Other [employer] Other 10-28-2021 pneumococcal polysaccharide vaccine, 23 valent Periluis Tyson Other [employer] Other 06-11-2021 COVID-19 mRNA-1273 (Moderna) DO Giovanni Tyler Work Phone: [facility] 03-12-2021 COVID-19 Vaccine Moderna - Documentation Purposes Only Giovanni Tyler Other [employer] Other 01-24-2021 COVID-19 mRNA-1273 (Moderna) DO Giovanni Tyler Work Phone: [facility] 01-11-2021 influenza, seasonal, injectable DO Giovanni Tyler Work Phone: [facility] 01-03-2021 influenza, seasonal, injectable Giovanni Tyler Other [employer] Other 12-22-2020 zoster vaccine recombinant Giovanni Tyler Other [employer] Other 09-13-2020 zoster vaccine recombinant Giovanni Tyler Other [employer] Other 07-31-2020 pneumococcal polysaccharide vaccine, 23 valent Giovanni Tyler Other [facility] Other 07-25-2020 COVID-19 Vaccine Pfi zer - Documentation Purposes Only Giovanni Tyler Other [employer] Other 07-12-2020 COVID-19 mRNA-1273 (Moderna) DO Giovanni Tyler Work Phone: [facility] 07-05-2020 COVID-19 Vaccine Pfi zer - Documentation Purposes Only Giovanni Tyler Other [employer] Other 05-11-2018 pneumococcal conjuga te vaccine, 13 valent Giovanni Tyler Other [facility] Other Payers Date Payer Category Payer Self-pay [id number] 1961 Unknown [id number] 2. [id number] 1960 Unknown [id number] 2.16.84 0.1.789612.3.579.2.593 1960 Unknown [id number] 2.16.84 0.1.034676.3.579.2.593 1960 Unknown [id number] 2.16.840 .1.524154.3.579.2.1259 Medicaid [employer] [id number] Unknown [id number] 2.16.8 40.1.181720.3.579.2.531 Unknown [id number] 2.16.8 40.1.310573.3.579.2.531 Unknown [id number] 2.16.8 40.1.427769.3.579.2.531 Unknown [id number] 2.16.8 40.1.052328.3.579.2.531 Unknown [id number] 2.16.8 40.1.193828.3.579.2.531 Unknown [id number] 2.16.8 40.1.999522.3.579.2.531 Unknown [id number] 2.16.8 40.1.056930.3.579.2.531 Unknown [id number] 2.16.8 40.1.938367.3.579.2.531 Unknown [id number] 2.16.8 40.1.378255.3.579.2.531 Unknown [id number] 2.16.8 40.1.300924.3.579.2.531 Unknown [id number] 2.16.8 40.1.366034.3.579.2.531 Unknown [id number] 2.16.8 40.1.989267.3.579.2.531 Unknown [id number] 2.16.8 40.1.509027.3.579.2.531 Unknown [id number] 2.16.8 40.1.457108.3.579.2.531 Unknown [id number] 2.16.8 40.1.338862.3.579.2.531 Social History Date Type Detail Facility Sex Assigned At [facility] [employer] Other Start: 10-23-2021 End: 03-04-2023 Tobacco smoking status NHIS Never smoked tobacco (finding) [facility] Start: 1960 Sex Assigned At Female F [facility] Medical Equipment Procedure Code Equipment Code Equipment Origin al Text Equipment Identifier Dates Phacoemulsification of cataract with intraocular lens implantation LENS ACRYSOF IOL [id number] FDA Start: 10-22-2017 Phacoemulsification of cataract with intraocular lens implantation LENS ACRYSOF IOL [id number] FDA Start: 10-22-2017 Phacoemulsification of cataract with intraocular lens implantation LENS ACRYSOF IOL [id number] FDA Start: 10-22-2017 Phacoemulsification of cataract with intraocular lens implantation LENS ACRYSOF IOL [id number] FDA Start: 10-22-2017 Phacoemulsification of cataract with intraocular lens implantation LENS ACRYSOF IOL [id number] FDA Start: 10-22-2017 Phacoemulsification of cataract with intraocular lens implantation LENS ACRYSOF IOL [id number] FDA Start: 10-22-2017 Phacoemulsification of cataract with intraocular lens implantation LENS ACRYSOF IOL [id number] FDA Start: 10-22-2017 Phacoemulsification of cataract with intraocular lens implantation LENS ACRYSOF IOL [id number] FDA Start: 10-22-2017 Phacoemulsification of cataract with intraocular lens implantation LENS ACRYSOF IOL [id number] FDA Start: 10-22-2017 Phacoemulsification of cataract with intraocular lens implantation LENS ACRYSOF IOL [id number] FDA Start: 10-22-2017 Phacoemulsification of cataract with intraocular lens implantation LENS ACRYSOF IOL [id number] FDA Start: 10-22-2017 Phacoemulsification of cataract with intraocular lens implantation Posterior-chamber intraocular lens, pseudophakic ()[id number] FDA Start: 12-18-2022 Phacoemulsification of cataract with intraocular lens implantation LENS ACRYSOF IOL [id number] FDA Start: 10-22-2017 Phacoemulsification of cataract with intraocular lens implantation LENS ACRYSOF IOL [id number] FDA Start: 10-22-2017 Start: 08-07-2021 Goals Date Patient Goal Desired Activity /State Clinical Notes 02-27-2021 to 03-19-2023 Note Date & Type Note Facility 03-19-2023 Evaluation note Encounter Date Diagnosis Assessment Notes Mar, Diarrhea (ICD-10 - R19.7) [facility] Other 11-13-2023 Evaluation note* Encounter Date Diagnosis Assessment Notes Treatment Notes Treatment Clinical Notes Feb, Controlled type 2 diabetes mellitus with complication, without long-term current use of insulin (ICD-10 - E11.8) [facility] Other 10-27-2023 Evaluation note* Encounter Date Diagnosis Assessment Notes Treatment Notes Treatment Clinical Notes Jan, Well adult exam (ICD-10 - Z00.00) s/p hysterectomy - pap not indicated UTD on screening mammogram UTD on screening colonoscopyUp to date on flu, shingrix, RSV, pneumonia, COVID and TdaP vaccinationsDiscussed diet and regular exerciseReviewed recent screening lab work Jan, Claudication of both lower extremities (ICD-10 - I73.9) Recommend PVR in bilateral LE for evaluation. DIscussed possible need for vascular f/u [facility] Other 10-24-2023 Evaluation note* Encounter Date Diagnosis Assessment Notes Treatment Notes Treatment Clinical Notes Jan, Controlled type 2 diabetes mellitus with complication, without long-term current use of insulin (ICD-10 - E11.8) [facility] Other 10-19-2023 Progress note Author Roxane Bills [facility] January 29, 2023 9:44am Note Date/Time January 29, 2023 9 :02am [facility] [place] [address] Hem/Onc Follow Up Note - OP Signed Patient: Kelsea Turcios MR#: [id number] : 1960 Acct:[id number] Age/Sex: 62 / F Type: REG RCR Copies to: Christopher M Germain, DO Peri A Tyson, DO~ Subjective Date/Time of Service: Date of Service: 01/29/2023 Time of Service: 09:00 Chief Complaint: Patient is here today for a 6 month follow up visit for MGUS and AMIE and go over labs HPI: 01/29/2023: Kelsea is here for 6-month follow-up of iron deficiency anemia and monoclonal gammopathy of undetermined significance with possible associated neuropathy. No recent illness or hospitalizations but she does report that she has been having increased pain in the left hip that makes it difficult for her to walk. She recently had imaging with lumbar MRI that was remarkable for mild to moderate canal stenosis with foraminal narrowing in the lower lumbar vertebrae. No notation of obvious lesions in this report. She also had imagingin April 2022 with pelvic x-ray showing degenerative changes of the lumbar spine and no acute process symptoms involving the pelvis. She recently has had increased pain medication with hydrocodone acetaminophen to 3 times daily for pain. She remains on gabapentin 300 mg 3 times daily for her chronic neuropathy. No change in bowel movements with chronic diarrhea. Her laboratories showed normal hemoglobin 12.3 with creatinine 1.37 which is improved from prior chemistry profiles. Calcium is normal at 8.6. Iron saturation is stable at 23.8% with ferritin normal at 192.2. Serum protein electrophoresis did not have reported M spike and we are checking with the lab however quantitative immunoglobulins show an increase of IgG from 1303 to now 1764 and serum kappa has increased from 122 now up to 37.9 with kappa/lambda light chain ratio increased from 3.66 to now 6.26. -- Given her worsening pain and significant changes of IgG kappa and kappa/lambda light chain, I have recommended repeating her bone marrow biopsy todetermine if she has had evolution of her MGUS to myeloma. In addition we are sending skeletal survey to evaluate for any other lytic lesions. If she has newbone lesions and/or progression on bone marrow biopsy, we will perform PET/CT for staging at that time. Otherwise we will review her bone marrow biopsy results in the next 3 to 4 weeks and determine further follow-up plan at that time. Moderate complexity 35-minute follow-up for complex laboratory testing. 07/30/2022: Kelsea is here for 3-month follow-up after iron infusions for iron deficiency anemia as well as chronic neuropathy with elevated kappa/lambda lightchain ratio but no evidence of amyloidosis or plasma cell dyscrasia on bone marrow biopsy 09/26/2021. She did not note any significant improvement of fatigue with iron infusions, however she did have improvement of her iron saturation from 15% to 23 with normal ferritin to 84. Hemoglobin which was mildly decreased at 11.2 is now up to 12.1. Monoclonal gammopathy labs show M spike 0.5 (previously 0.4), stable kappa/lambda light chain ratio of 3.66, stable IgA 656. No indication for bone marrow biopsy or further work-up of her monoclonal gammopathy of undetermined significance. She had unremarkable skeletal survey in August 2021. We will defer repeat bone survey for 2 years unless new symptoms arise. Next follow-up in 6 months with MGUS labs (CBC, CMP,free kappa/lambda light chains and immunoglobulins IgG/IgA/IgM with serum protein electrophoresis) and repeat iron studies, sooner as needed. Low complexity 25-minute follow-up. 04/23/2022: Kelsea presents for follow-up for her MGUS and iron deficiency anemia.She continues with a lot of fatigue and dyspnea on exertion. She endorses dark/black stool while on oral iron supplementation for the last 6 months. She also notes increased low back and left leg pain over the last month or so that is very bothersome for her. Otherwise no new symptoms. Labs are reviewed and heriron has not improved over the last 6 months since initiating oral supplementation. We will switch to IV iron infusions at this point. Remaining labs stable overall with slightly increased K/L ratio. We will order imaging on her lower back/hip area to evaluate her increased pain. Follow-up will be in 3mowith repeat labs. 10/23/2021: Kelsea is here for follow-up of image guided bone marrow aspiration and biopsy performed in interventional radiology on 09/26/2021. She did have a mildly elevated kappa/lambda light chain ratio and has had polyneuropathy, therefore bone marrow aspiration biopsy was performed to evaluate for amyloidosis or other plasma cell dyscrasia. No change of clinical symptoms overthe last 6 weeks. --Bone marrow biopsy showed a slightly hypercellular bone marrow for patient's age (50% cellularity). No evidence of lymphoproliferative disorder, no evidenceof plasma cell neoplasm identified. No increased blasts, no evidence of dyspoiesis identified. [place] red stain was negative for any evidence of amyloiddeposition. There was absence of stainable iron storage (0/4+). -- We discussed that iron deficiency can sometimes be associated with leg pain and heaviness, therefore I recommended sending baseline serum iron profile whichshowed iron saturation 15% and ferritin 76.6. I am initiating oral ferrous sulfate 325 mg daily over the next 6 months and we will recheck her CBC with iron stores at that time. I will also recheck her free kappa/lambda light chains and immunoglobulins IgG/IgA/IgM with serum protein electrophoresis at 6 months. If she has poor tolerance of oral iron we can coordinate parenteral iron. She may return sooner than 6 months if new symptoms arise. She is in agreement with this plan he was 35-minute moderate complexity follow-up visit. 09/11/2021: I reviewed the results of patient's labs from consult about 4 weeks ago. She did not have any monoclonality noted on urinalysis but does have a mildly elevated kappa/lambda light chain ratio. The patient was given the option of surveillance with every 3-month monoclonal gammopathy labs versus bonemarrow biopsy to determine if she has presence of amyloidosis or other plasma cell dyscrasia. Patient notes that she has been suffering with polyneuropathy and would like to proceed with bone marrow biopsy for further evaluation. Due to her BMI 48, I recommended interventional radiology to perform image guided bone marrow aspiration and biopsy on her and we will review the results approximately 3 weeks after procedure. She is in agreement with this plan over this moderate complexity visit over 25 minutes for review of laboratories and coordination of her image guided bone marrow biopsy. 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 She had a prior EMG in 2016 but most recent EMG of bilateral lower extremities was significantly worse. She had an MRI of the lumbar spine without contrast on 09/14/2020 showing a lipoma of her from terminaleand mild lower lumbar discovertebral degenerative changes including facet arthropathy but no central stenosis. She also had a MRI of the cervical spine 09/22/2017 showing mild disc space narrowing at C3-C4 and C5-C6 that was otherwise unremarkable. Bilateral upper extremity EMG showed a remote C8 radiculopathy on the right which was moderate. She had work-up with serum protein electrophoresis on 07/02/2021 showing a monoclonal spike of 0.4 g/dL (no prior labs for comparison). Serum immunofixation showed a monoclonal protein with kappa light chain specificity however quantitative immunoglobulin showed anelevation of IgA at 508 with normal IgG 1134 and IgM 79. She had an antineutrophil antibody screen that was negative and rheumatoid factor was less than 10. She reports chronic fatigue, progressive increase in weight and she is noted to have a BMI of 49. She has mild anemia with most recent hemoglobin 11.6, elevated erythrocyte sedimentation rate of 65, most recent renal function panel showed a creatinine of 1.64 correlating to EGFR, [id number] 32. This has not significantly changed over the last year but is lower than prior labs from 2017- 2020. Most recent calcium within normal limits and we do not have recent imaging other than her MRIs which have not shown any bony lytic lesions. The patient does report diffuse pain. She has urinary tract infections intermittently but no other history of chronic infections. She has no personal history of malignancy, chemotherapy, or radiation therapy. DIAGNOSIS: 1. Monoclonal gammopathy of undetermined significance, possibly associated neuropathy 2. Longstanding diabetes mellitus over the last 8 years 3. Chronic peripheral neuropathy that is recently been worsening 4. 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 COPD with oxygen dependence past 8 years - Summary of Therapies Summary of Therapies: 1. MGUS, no plasma cell neoplasm or amyloidosis, followed by neurology on bone marrow biopsy 09/26/2021 2. Neuropathy unclear etiology 3. Absent iron stores on bone marrow biopsy with iron saturation 15%, started oral iron 10/23/2020 -- Venofer infusions due to persistent fatigue and low iron saturation 300 mg x 3 doses (05/02-05/12/2022) ROS Details: All systems reviewed & no additional complaints except as documented Subjective/ROS - Narrative: CONSTITUTIONAL: Positive for chronic fatigue stable--no improvement with iron infusions in April 2022, negative for fever or night sweats. HEAD AND NECK: Negative for changes in hearing and vision. Negative for mouth ulcers, nasal congestion and nasal drainage. Denies any recent infectious illnesses. PULMONARY: Negative for chest pain, stable chronic cough and dyspnea. Chronic oxygen dependence due to COPD. CARDIOVASCULAR: Negative for claudication and irregular heartbeat/palpitations. GASTROINTESTINAL: Negative for abdominal pain, constipation, decreased appetite,diarrhea, nausea, and vomiting. GENITOURINARY: Negative for dysuria and hematuria. ENDOCRINE: Negative for cold intolerance and heat intolerance. Chronic diabetes, insulin requiring 10 years. CENTRAL NERVOUS SYSTEM: Positive for gait disturbance secondary to chronic neuropathy. No headache and radiculopathy left lower extremity/right upper extremity. PSYCHIATRIC: Negative for anxiety--positive for bipolar depression controlled onmedications. DERMATOLOGICAL: Negative for pruritus and rash. Negative for suspicious skin lesions. MUSCULOSKELETAL: Positive for cervical and lumbar back pain with radiculopathy. Positive for increasing left hip pain past 6 months with difficulty ambulating and increasing dose of hydrocodone. HEMATOLOGICAL: Negative for bleeding and easy bruising. Negative for history of transfusion or thromboembolic disease ALLERGY: Negative for environmental allergies and food allergies. PMF - History Attestation statement: The following information was validated with the patient. Source: Old Records Reviewed - Medical History Medical History: Medical History (Last Reviewed 01/29/23 @ 09:17 by Roxane Bills MD) Abdominal pain Anxiety Arthritis Asthma CKD (chronic kidney disease), stage IV COPD (chronic obstructive pulmonary disease) Depression Diabetes Diarrhea GERD (gastroesophageal reflux disease) History of cataract bilateral Hypertension Irritable bowel disease Nausea Neuropathy On home oxygen therapy 4-5 L nasal cannula PTSD (post-traumatic stress disorder) Sleep apnea cpap Spinal stenosis Wound of right leg - Surgical History Surgical History: Surgical History (Last Reviewed 01/29/23 @ 09:17 by Roxane Bills MD) H/O cataract extraction right H/O foot surgery bilateral H/O: section x 4 History of hysterectomy Hx of cholecystectomy - Family History Family History: Family History (Last Reviewed 01/29/23 @ 09:17 by Roxane Bills MD) Son Hypertension Sister Hypertension Colon polyp Grandparent Breast cancer Grandparent Leukemia Brother Diabetes - Social History Smoking Status: Never smoker Substance Use Type: None Social History Comments: 1 son lives with her and spouse, he is 30 y.o. Home Medications & Allergies Allergies codeine Allergy (Verified 01/29/23 08:51) Rash honey Allergy (Verified 01/29/23 08:51) Hives morphine Allergy (Verified 01/29/23 08:51) Gastrointestinal Upset tramadol Allergy (Verified 01/29/23 08:51) Unknown Reaction Home Medications cholecalciferol (vitamin D3) 50 mcg (2,000 unit) capsule 1 cap PO BID 12/16/16 [History Confirmed 01/29/23] montelukast 10 mg tablet 1 tab PO QHS 10/05/17 [History Confirmed 01/29/23] amlodipine 5 mg tablet 10 mg PO QAM 01/24/18 [History Confirmed 01/29/23] brexpiprazole 2 mg tablet (Rexulti) 3 mg PO QAM depression 01/24/18 [History Confirmed 01/29/23] budesonide-formoterol HFA 160 mcg-4.5 mcg/actuation aerosol inhaler (Symbicort) 2 puff inhalation BID 01/24/18 [History Confirmed 01/29/23] carvedilol 6.25 mg tablet 25 mg PO BID 01/24/18 [History Confirmed 01/29/23] hydrocodone 5 mg-acetaminophen 325 mg tablet 5 mg PO TID PRN Back Pain 01/24/18 [History Confirmed 01/29/23] magnesium oxide 400 mg PO DAILY 01/24/18 [History Confirmed 01/29/23] omeprazole 40 mg capsule,delayed release 40 mg PO QAM 01/24/18 [History Confirmed 01/29/23] oxybutynin chloride 10 mg tablet,extended release 24 hr 10 mg PO QAM 01/24/18 [History Confirmed 01/29/23] albuterol sulfate 90 mcg/actuation aerosol inhaler (ProAir HFA) 1 puff inhalation Q4H PRN Wheezing 07/29/21 [History Confirmed 01/29/23] amitriptyline 10 mg tablet 10 mg PO QAM 07/29/21 [History Confirmed 01/29/23] dicyclomine 20 mg tablet 20 mg PO QID ibs 07/29/21 [History Confirmed 01/29/23] fluticasone propionate 50 mcg/actuation nasal spray,suspension 1 spray intranasal DAILY 07/29/21 [History Confirmed 01/29/23] hydroxyzine HCl 10 mg tablet 10 mg PO TID 07/29/21 [History Confirmed 01/29/23] ipratropium 0.5 mg-albuterol 3 mg (2.5 mg base)/3 mL nebulization soln 3 ml inhalation Q6H PRN Wheezing 07/29/21 [History Confirmed 01/29/23] levomilnacipran 120 mg capsule,24 hr,extended release (Fetzima) 120 mg PO QAM depression 07/29/21 [History Confirmed 01/29/23] levothyroxine 75 mcg tablet 50 mcg PO QAM 07/29/21 [History Confirmed 01/29/23] mirtazapine 30 mg tablet (Remeron) 30 mg PO QHS 07/29/21 [History Confirmed 01/29/23] sucralfate 1 gram tablet 1 g PO TID 07/29/21 [History Confirmed 01/29/23] zonisamide 50 mg capsule 25 mg PO BID 07/29/21 [History Confirmed 01/29/23] cyclobenzaprine 10 mg tablet 10 mg PO HS 08/16/21 [History Confirmed 01/29/23] duloxetine 60 mg capsule,delayed release sprinkle 60 mg PO QAM 08/16/21 [History Confirmed 01/29/23] gabapentin 100 mg capsule 300 mg PO TID 08/16/21 [History Confirmed 01/29/23] insulin glargine 100 unit/mL (3 mL) subcutaneous pen (Basaglar KwikPen U-100 Insulin) 40 unit subcut QHS 08/16/21 [History Confirmed 01/29/23] dapagliflozin propanediol 5 mg tablet (Farxiga) 5 mg PO QAM 12/05/22 [History Confirmed 01/29/23] insulin lispro-aabc 100 unit/mL subcutaneous pen (Lyumjev KwikPen U-100 Insulin)30 unit subcut TID.AC 12/05/22 [History Confirmed 01/29/23] Objective - Height/Weight Height/Weight: Height 5 ft Weight 112.945 kg - Vital Signs Vital Signs: 01/29/23 08:55 Temperature 97.5 F L Pulse Rate [Left Brachial] 82 Respiratory Rate 16 Blood Pressure [Left Arm] 132/82 02 Sat by Pulse Oximetry 98 Oxygen Delivery Method Room Air - Pain Back Pain Intensity: 7 Physical Exam Narrative: CONSTITUTIONAL: The patient is in no acute distress. HEAD / FACE: Normocephalic. RESPIRATORY: Normal to inspection. Lungs distant breath sounds. No audible wheezing, rales, rhonchi or rubs. Normal effort. Supplemental oxygen in place. CARDIOVASCULAR: Regular rate and rhythm. No murmurs, gallops, or rubs. ABDOMEN: Bowel sounds normoactive. Soft, nontender and non-distended. No hepatosplenomegaly. No masses noted. INTEGUMENTARY: The skin is unremarkable. No rashes. No suspicious lesions MUSCULOSKELETAL: Normal musculature, no joint deformities or abnormalities, normal range of motion for all four extremities. EXTREMITIES: No edema, cyanosis or clubbing. NEUROLOGICAL: Alert and oriented. Cranial nerves intact. No gross motor deficits. Positive bilateral numbness distal to knees. PSYCHIATRIC: No anxiety or evidence of depression. - ECOG Performance Status ECOG Score: 1 Results - Labs Labs: Diagram of Most Recent CBC and CMP 01/22/23 13:24 01/22/23 13:24 Labs - Last 7 Days 01/22/23 13:24: IgG 1764 H, IgA 669 H, IgM 107, Serum Immunofixation A, Free [place] LC, Quant 237.9 H, Free Lambda LC, Quant 38.0 H, Free [place]/Lambda Ratio 6.26 H 01/22/23 13:24: PHA Creatinine Clear 44.97, Sodium 141, Potassium 4.2, Chloride 100, Carbon Dioxide 32.1 H, Anion Gap 13.1, BUN 13, Creatinine 1.37 H, Est GFR (CKD- EPI) 43.118, Glucose 199 H, Calcium 8.6, Iron 74, TIBC 311, Iron Iiqshhsbnd31.8, Transferrin 222, Ferritin 192.2, Total Bilirubin 0.4, AST 48 H, ALT 47, Alkaline Phosphatase 169 H, Total Protein 7.9, Albumin 3.7, Globulin 4.2, Albumin/Globulin Ratio 0.9 01/22/23 13:24: Corrected WBC 12.4 H, Uncorrected WBC Count 12.4 H, RBC 4.11, Hgb 12.3, Hct 37.8, MCV 91.9, MCH 30.0, MCHC 32.7, RDW 14.2, Plt Count 299, MPV 7.0, Neut % (Auto) 64.2, Lymph % (Auto) 25.5, [place] % (Auto) 5.6, Eos % (Auto) 4.2, Baso % (Auto) 0.5, Nucleat RBC Rel Count 0.0, Neut # (Auto) 8.0 H, Lymph # (Auto) 3.2, [place] # (Auto) 0.7, Eos # (Auto) 0.5 H, Baso # (Auto) 0.1 - Impressions MR lumbar spine wo con 12/04/2022 6:47 AM SIGNS AND SYMPTOMS: Chronic low back pain with pain radiating into left lower extremity PROTOCOL: Multiplanar multisequence MR images of the lumbar spine were obtained without IV contrast COMPARISON: 09/14/2020 FINDINGS: There is 3 mm of anterolisthesis of L5 upon S1 which is unchanged. There is preservation of vertebral body heights. There is disc desiccation and mild disc height loss at L5-S1 and to a lesser extent L4-L5. Incidental note is made of a lipoma along the filum terminale which is unchanged. This is of no clinical significance. There is a suspected hemangioma in the left iliac spine which is unchanged. The conus terminates at the inferior endplate of the L1 vertebral body level. No epidural or paraspinous fluid collection is appreciated. At T12-L1: There is a normal disc, central canal, and neural foramen. At L1-L2: There is a normal disc, central canal, and neural foramen. At L2-L3: There is a normal disc, central canal, and neural foramen. At L3-L4: There is a broad-based disc bulge with facet hypertrophy. There is mild spinal canal stenosis with mild bilateral neural foraminal narrowing. This is unchanged. At L4-L5: There is a broad-based disc bulge with facet hypertrophy and facet effusions right greater than left. There is moderate narrowing of spinal canal with moderate right and mild left neural foraminal stenosis. This is unchanged. At L5-S1: There is a normal disc, central canal, and neural foramen. MR/MR lumbar spine wo con IMPRESSION: There is 3 mm of anterolisthesis of L5 upon S1 which is unchanged. At L3-L4: There is a broad-based disc bulge with facet hypertrophy. There is mild spinal canal stenosis with mild bilateral neural foraminal narrowing. This is unchanged. At L4-L5: There is a broad-based disc bulge with facet hypertrophy and facet effusions right greater than left. There is moderate narrowing of spinal canal with moderate right and mild left neural foraminal stenosis. This is unchanged. 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 She has mild anemia with most recent hemoglobin 11.6, elevated erythrocyte sedimentation rate of 65, most recent renal function panel showed a creatinine of 1.64 correlating to EGFR, [id number] 32. This has not significantly changed over the last year but is lower than prior labs from [id number]. Most recent calcium within normal limits and we do not have recent imaging other than her MRIs which have not shown any bony lytic lesions. The patient does report diffuse pain. She has urinary tract infections intermittently but no other history of chronic infections. She has no personal history of malignancy, chemotherapy, or radiation therapy. 09/11/2021: Patient returns to review urine protein electrophoresis which showed no M spike, urine immunofixation which showed no monoclonality, and kappa/lambdalight chain analysis with mild elevation of ratio. In addition she was noted tohave elevated beta-2 microglobulin, although this could also be reflective of her stage III chronic kidney disease. Baseline Skeletal survey showed no evidence of bony lytic lesions or osteopenia. --She was given the option of surveillance labs every 3 months versus schedulingbone marrow aspiration and biopsy to determine if she has a plasma cell dyscrasia and/or presence of amyloid protein contributing to her neuropathy. She wishes to proceed with bone marrow biopsy. Due to her large body habitus we will set up bone marrow biopsy with interventional radiology to ensure proper specimen sampling. 10/24/2021: Bone marrow biopsy performed 09/26/2021 in interventional radiology shows no evidence of plasma cell neoplasm or amyloidosis. She does have absent iron stores and I advised adding ferrous sulfate 1 tablet daily. If she has intolerance of ferrous sulfate or failure to respond, we will arrange parenteraliron therapy. Next follow-up with me will be in 6 months with serum protein electrophoresis, quantitative immunoglobulins, and kappa/lambda light chain analysis. We will also repeat CBC, CMP, and Serum iron profile/ferritin level 10. Moderate complexity visit of 35 minutes. 04/23/2022: Kelsea complains of increased back pain over the last month or so and continued fatigue, dyspnea on exertion. Her iron studies did not improve on 6 months of oral iron supplementation, so will switch to IV iron. Her labs are overall stable with slight increase in K/L ratio, but will continue to monitor only for now. Her M-spike is the same as October 2021 and creatinine is improved. We will repeat cbc, cmp, iron studies, spep, flc and immunoglobulins in 3 months, sooner as needed. She is in agreement with this plan and has no further questions. 07/31/2022: Patient has chronic fatigue and neuropathy. Stable M spike and monoclonal gammopathy labs. We started her on oral iron due to absent iron stores and persistent fatigue. She did not have any significant improvement of fatigue and had low iron saturation 15% 3 months ago therefore she was given parenteral iron with Venofer. She now has normal iron stores but has persistentfatigue. We will continue follow-up with primary care and neurology. Next follow-up for monoclonal gammopathy and iron deficiency in 6 months with appropriate labs as noted above. Low complexity 25- minute follow-up visit. 01/29/2023: Over the past 6 months she has noted increased hip pain and follow- up monoclonal gammopathy labs show increased IgG level and kappa/lambda ratio about double that of 6 months ago. Hemoglobin is normal with normal iron saturation 23% after prior parenteral iron with Venofer. Creatinine is slightlyimproved to 1.3 with normal calcium level. It has been about 18 months since she had last skeletal survey and we will repeat this due to her recent rise in IgG and kappa levels as well as increased hip and pelvic pain. She did have lumbar spine MRI in December 2022 without obvious melanoma to this lesion seen. She will have bone marrow biopsy at interventional radiology and will follow-upwith me after bone marrow biopsy and repeat skeletal survey in about 3 to 4 weeks to review results and further plan of care. This is of moderate complexity 35-minute follow-up for complex medical testing. (2) Degenerative joint disease of cervical and lumbar spine Recent worsening hip and pelvis pain. Lumbar MRI was negative for myelomatous lesions, but working up for potential progression to myeloma with skeletal survey and bone marrow biopsy as noted above. (3) Iron deficiency anemia Qualifiers: Iron deficiency anemia type: unspecified iron deficiency Qualified Code(s):D50.9 - Iron deficiency anemia, unspecified Absent iron stores on bone marrow biopsy with iron saturation low at 15%. Givenher chronic kidney disease and neuropathy we will add ferrous sulfate 1 tablet daily. If she has poor tolerance of oral iron we can consider parenteral iron due to her persistent fatigue. Reassess iron stores in 6 months. 04/23/2022: No improvement in symptoms or iron studies with 6 months of therapy. She confirms she took her iron every day without missing doses. We will plan to switch to IV Venofer 300mg x 3 doses 07/30/2022: No improvement of symptoms but iron studies now show normal iron saturation 23% with ferritin greater than 200. We will monitor her follow-up iron studies in 6 months. No further oral iron. 01/29/2023: No improvement of symptoms normal iron studies and with normal ferritin. Will followup CBC only and repeat iron studies only if significant worsening anemia. We will evaluate iron stores on upcoming bone marrow biopsy. (4) CKD (chronic kidney disease) stage 3, GFR 30-59 ml/min Qualifiers: Chronic kidney disease stage 3 subtype: stage 3b (GFR 30-44) Qualified Code(s): N18.32 - Chronic kidney disease, stage 3b Chronic stable CKD stage 3b. Elevated beta-2 microglobulin likely due to her chronic kidney disease--interestingly since April her creatinine has improved,now creatinine clearance 43. (5) COPD (chronic obstructive pulmonary disease) Qualifiers: COPD type: emphysema Emphysema type: unspecified Qualified Code(s): J43.9- Emphysema, unspecified Chronic O2 dependence. No recent clinical change. (6) Diabetes Qualifiers: Diabetes mellitus type: type 2 Diabetes mellitus complication status: with neurologic complications Diabetes mellitus complication detail: with polyneuropathy (7) Morbid obesity (8) Bipolar disorder with depression - Time with Patient Time Spent with Patient (Follow Up Visit): 35 minutes - Moderate complexity visit to review iron studies and MGUS labs-due to increasing IgG, hip pain, and kappa/lambda light chain ratio we are repeating bone marrow biopsy and skeletal survey. Coordination of Care & Counseling Time: Greater than 50% of time spent with patient was for coordination of care (as documented) and [id number] counseling of patient and/or family. Dictated By: Roxane Bills MD DD/ 9 Signed By: <Electronically signed by MD Roxane Bills> 01/29/23943 [facility] Work Phone: [phone]) 352-468010-11-2023 Evaluation note* Encounter Date Diagnosis Assessment Notes Treatment Notes Treatment Clinical Notes Jan, Left hip pain (ICD-10 - M25.552) [facility] Other 10-02-2023 Evaluation note* Encounter Date Diagnosis Assessment Notes Treatment Notes Treatment Clinical Notes Jan, Other chronic pain (ICD-10 - G89.29) Jan, Lumbago with sciatica, left side (ICD-10 - M54.42) [facility] Other 09-05-2023 Evaluation note* Encounter Date Diagnosis Assessment Notes Treatment Notes Treatment Clinical Notes Dec, Acquired lymphedema of lower extremity (ICD-10 - I89.0) [facility] Other 07-17-2023 Evaluation note* Encounter Date Diagnosis Assessment Notes Treatment Notes Treatment Clinical Notes Oct, Type 2 diabetes mellitus with diabetic chronic kidney disease (ICD-10 - E11.22) [facility] Other 07-03-2023 Evaluation note* Encounter Date Diagnosis Assessment Notes Treatment Notes Treatment Clinical Notes Oct, Other chronic pain (ICD-10 - G89.29) [facility] Other 06-28-2023 Evaluation note* Encounter Date Diagnosis Assessment Notes Treatment Notes Treatment Clinical Notes Sep, Gait instability (ICD-10 - R26.81) [facility] Other 06-06-2023 Evaluation note* Encounter Date Diagnosis Assessment Notes Treatment Notes Treatment Clinical Notes Sep, Left hip pain (ICD-10 - M25.552) With radiation down posterior left leg, will obtain an MRI for further evaluation. She is currently in PT without improvement. Sep, Gait instability (ICD-10 - R26.81) Patient will highly benefit from a Rollator device to assist with ambulation, steadying gait, decreasing risk for fall. As she is on chronic supplemental O2 the rollator will need an oxygen tank singh. Sep, Neuropathy (ICD-10 - G62.9) Sep, Frequent falls (ICD-10 - R29.6) Sep, Chronic obstructive pulmonary disease, unspecified (ICD-10 - J44.9) [facility] Other 05-30-2023 Evaluation note* Encounter Date Diagnosis Assessment Notes Treatment Notes Treatment Clinical Notes August, Lumbosacral spondylosis without myelopathy (ICD-10 - M47.817) [facility] Other 05-02-2023 Evaluation note* Encounter Date Diagnosis Assessment Notes Treatment Notes Treatment Clinical Notes August, Chronic obstructive pulmonary disease, unspecified (ICD-10 - J44.9) [facility] Other 04-21-2023 Evaluation note* Encounter Date Diagnosis Assessment Notes Treatment Notes Treatment Clinical Notes Jul, Controlled type 2 diabetes mellitus with complication, without long-term current use of insulin (ICD-10 - E11.8) [facility] Other 04-20-2023 Progress note Author Roxane Bills [facility] July 31, 2022 1:09pm Note Date/Time July 30, 2022 3:0 8pm [facility] [place] [address] Hem/Onc Follow Up Note - OP Signed Patient: Kelsea Turcios MR#: [id number] : 1960 Acct:[id number] Age/Sex: 61 / F Type: REG RCR Copies to: DO Peri Deleon, ~ Subjective Date/Time of Service: Date of Service: 07/30/2022 Time of Service: 15:07 Chief Complaint: Patient is here today for a 3 month follow up visit for MGUS and iron deficiencty anemia and go over labs HPI: 07/30/2022: Kelsea is here for 3-month follow-up after iron infusions for iron deficiency anemia as well as chronic neuropathy with elevated kappa/lambda lightchain ratio but no evidence of amyloidosis or plasma cell dyscrasia on bone marrow biopsy 09/26/2021. She did not note any significant improvement of fatigue with iron infusions, however she did have improvement of her iron saturation from 15% to 23 with normal ferritin to 84. Hemoglobin which was mildly decreased at 11.2 is now up to 12.1. Monoclonal gammopathy labs show M spike 0.5 (previously 0.4), stable kappa/lambda light chain ratio of 3.66, stable IgA 656. No indication for bone marrow biopsy or further work-up of her monoclonal gammopathy of undetermined significance. She had unremarkable skeletal survey in August 2021. We will defer repeat bone survey for 2 years unless new symptoms arise. Next follow-up in 6 months with MGUS labs (CBC, CMP, free kappa/lambda light chains and immunoglobulins IgG/IgA/IgM with serum protein electrophoresis) and repeat iron studies, sooner as needed. Low complexity 25-minute follow-up. 04/23/2022: Kelsea presents for follow-up for her MGUS and iron deficiency anemia.She continues with a lot of fatigue and dyspnea on exertion. She endorses dark/black stool while on oral iron supplementation for the last 6 months. She also notes increased low back and left leg pain over the last month or so that is very bothersome for her. Otherwise no new symptoms. Labs are reviewed and heriron has not improved over the last 6 months since initiating oral supplementation. We will switch to IV iron infusions at this point. Remaining labs stable overall with slightly increased K/L ratio. We will order imaging on her lower back/hip area to evaluate her increased pain. Follow-up will be in 3mowith repeat labs. 10/23/2021: Kelsea is here for follow-up of image guided bone marrow aspiration and biopsy performed in interventional radiology on 09/26/2021. She did have a mildly elevated kappa/lambda light chain ratio and has had polyneuropathy, therefore bone marrow aspiration biopsy was performed to evaluate for amyloidosis or other plasma cell dyscrasia. No change of clinical symptoms overthe last 6 weeks. --Bone marrow biopsy showed a slightly hypercellular bone marrow for patient's age (50% cellularity). No evidence of lymphoproliferative disorder, no evidenceof plasma cell neoplasm identified. No increased blasts, no evidence of dyspoiesis identified. Congo red stain was negative for any evidence of amyloiddeposition. There was absence of stainable iron storage (0/4+). -- We discussed that iron deficiency can sometimes be associated with leg pain and heaviness, therefore I recommended sending baseline serum iron profile whichshowed iron saturation 15% and ferritin 76.6. I am initiating oral ferrous sulfate 325 mg daily over the next 6 months and we will recheck her CBC with iron stores at that time. I will also recheck her free kappa/lambda light chains and immunoglobulins IgG/IgA/IgM with serum protein electrophoresis at 6 months. If she has poor tolerance of oral iron we can coordinate parenteral iron. She may return sooner than 6 months if new symptoms arise. She is in agreement with this plan he was 35-minute moderate complexity follow-up visit. 09/11/2021: I reviewed the results of patient's labs from consult about 4 weeks ago. She did not have any monoclonality noted on urinalysis but does have a mildly elevated kappa/lambda light chain ratio. The patient was given the option of surveillance with every 3-month monoclonal gammopathy labs versus bonemarrow biopsy to determine if she has presence of amyloidosis or other plasma cell dyscrasia. Patient notes that she has been suffering with polyneuropathy and would like to proceed with bone marrow biopsy for further evaluation. Due to her BMI 48, I recommended interventional radiology to perform image guided bone marrow aspiration and biopsy on her and we will review the results approximately 3 weeks after procedure. She is in agreement with this plan over this moderate complexity visit over 25 minutes for review of laboratories and coordination of her image guided bone marrow biopsy. 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 She had a prior EMG in 2015 but most recent EMG of bilateral lower extremities was significantly worse. She had an MRI of the lumbarspine without contrast on 09/14/2020 showing a lipoma of her from terminale and mild lower lumbar discovertebral degenerative changes including facet arthropathy but no central stenosis. She also had a MRI of the cervical spine 09/22/2017 showing mild disc space narrowing at C3-C4 and C5-C6 that was otherwise unremarkable. Bilateral upper extremity EMG showed a remote C8 radiculopathy on the right which was moderate. She had work-up with serum protein electrophoresis on 07/02/2021 showing a monoclonal spike of 0.4 g/dL (no prior labs for comparison). Serum immunofixation showed a monoclonal protein with kappa light chain specificity however quantitative immunoglobulin showed anelevation of IgA at 508 with normal IgG 1134 and IgM 79. She had an antineutrophil antibody screen that was negative and rheumatoid factor was less than 10. She reports chronic fatigue, progressive increase in weight and she is noted to have a BMI of 49. She has mild anemia with most recent hemoglobin 11.6, elevated erythrocyte sedimentation rate of 65, most recent renal function panel showed a creatinine of 1.64 correlating to EGFR, [id number] 32. This has not significantly changed over the last year but is lower than prior labs from 2017- 2020. Most recent calcium within normal limits and we do not have recent imaging other than her MRIs which have not shown any bony lytic lesions. The patient does report diffuse pain. She has urinary tract infections intermittently but no other history of chronic infections. She has no personal history of malignancy, chemotherapy, or radiation therapy. DIAGNOSIS: 1. Monoclonal gammopathy of undetermined significance, possibly associated neuropathy 2. Longstanding diabetes mellitus over the last 8 years 3. Chronic peripheral neuropathy that is recently been worsening 4. 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 COPD with oxygen dependence past 8 years - Summary of Therapies Summary of Therapies: 1. MGUS, no plasma cell neoplasm or amyloidosis, followed by neurology on bone marrow biopsy 09/26/2021 2. Neuropathy unclear etiology 3. Absent iron stores on bone marrow biopsy with iron saturation 15%, started oral iron 10/23/2020 -- Venofer infusions due to persistent fatigue and low iron saturation 300 mg x 3 doses (05/02-05/12/2022) ROS Details: All systems reviewed & no additional complaints except as documented Subjective/ROS - Narrative: CONSTITUTIONAL: Positive for chronic fatigue increasing over the past year--no improvement with iron infusions in April 2022, negative for fever or night sweats. HEAD AND NECK: Negative for changes in hearing and vision. Negative for mouth ulcers, nasal congestion and nasal drainage. PULMONARY: Negative for chest pain, stable chronic cough and dyspnea. Chronic oxygen dependence due to COPD. CARDIOVASCULAR: Negative for claudication and irregular heartbeat/palpitations. GASTROINTESTINAL: Negative for abdominal pain, constipation, decreased appetite,diarrhea, nausea, and vomiting. GENITOURINARY: Negative for dysuria and hematuria. ENDOCRINE: Negative for cold intolerance and heat intolerance. Chronic diabetes, insulin requiring 9 years. CENTRAL NERVOUS SYSTEM: Positive for gait disturbance secondary to chronic neuropathy. No headache and radiculopathy left lower extremity/right upper extremity. PSYCHIATRIC: Negative for anxiety--positive for bipolar depression controlled onmedications. DERMATOLOGICAL: Negative for pruritus and rash. Negative for suspicious skin lesions. MUSCULOSKELETAL: Positive for cervical and lumbar back pain with radiculopathy. No other bone/joint symptoms. HEMATOLOGICAL: Negative for bleeding and easy bruising. Negative for history of transfusion or thromboembolic disease ALLERGY: Negative for environmental allergies and food allergies. [facility] - History Attestation statement: The following information was validated with the patient. Source: Old Records Reviewed - Medical History Medical History: Medical History (Last Reviewed 07/31/22 @ 12:57 by Roxane Bills MD) Abdominal pain Anxiety Asthma COPD (chronic obstructive pulmonary disease) Diabetes Diarrhea GERD (gastroesophageal reflux disease) Hypertension Nausea On home oxygen therapy 3-5 L nasal cannula Sleep apnea Spinal stenosis Wound of right leg - Surgical History Surgical History: Surgical History (Last Reviewed 07/31/22 @ 12:57 by Roxane Bills MD) H/O foot surgery bilateral H/O: section x 4 History of hysterectomy Hx of cholecystectomy - Family History Family History: Family History (Last Reviewed 07/31/22 @ 12:57 by Roxane Bills MD) Son Hypertension Sister Hypertension Colon polyp Grandparent Breast cancer Grandparent Leukemia Brother Diabetes - Social History Smoking Status: Never smoker Substance Use Type: None Social History Comments: 1 son lives with her and spouse, he is 30 y.o. Home Medications & Allergies Allergies codeine Allergy (Verified 07/30/22 15:03) Rash honey Allergy (Verified 07/30/22 15:03) Hives morphine Allergy (Verified 07/30/22 15:03) Gastrointestinal Upset Home Medications cholecalciferol (vitamin D3) 50 mcg (2,000 unit) capsule 1 cap PO DAILY 12/16/16[History Confirmed 07/30/22] montelukast 10 mg tablet 1 tab PO QHS 10/05/17 [History Confirmed 07/30/22] amlodipine 5 mg tablet 10 mg PO DAILY 01/24/18 [History Confirmed 07/30/22] brexpiprazole 2 mg tablet (Rexulti) 3 mg PO DAILY 01/24/18 [History Confirmed 07/30/22] budesonide-formoterol HFA 160 mcg-4.5 mcg/actuation aerosol inhaler (Symbicort) 2 puff inhalation BID 01/24/18 [History Confirmed 07/30/22] carvedilol 6.25 mg tablet 25 mg PO BID 01/24/18 [History Confirmed 07/30/22] hydrocodone 5 mg-acetaminophen 325 mg tablet 5 mg PO DAILY PRN Pain 01/24/18 [History Confirmed 07/30/22] magnesium oxide 400 mg PO DAILY 01/24/18 [History Confirmed 07/30/22] omeprazole 40 mg capsule,delayed release 40 mg PO DAILY 01/24/18 [History Confirmed 07/30/22] oxybutynin chloride 10 mg tablet,extended release 24 hr 10 mg PO DAILY 01/24/18 [History Confirmed 07/30/22] albuterol sulfate 90 mcg/actuation aerosol inhaler (ProAir HFA) 1 puff inhalation Q4H PRN Wheezing 07/29/21 [History Confirmed 07/30/22] amitriptyline 10 mg tablet 10 mg PO DAILY 07/29/21 [History Confirmed 07/30/22] dicyclomine 20 mg tablet 20 mg PO QID 07/29/21 [History Confirmed 07/30/22] fluticasone propionate 50 mcg/actuation nasal spray,suspension 1 spray intranasal DAILY 07/29/21 [History Confirmed 07/30/22] hydroxyzine HCl 10 mg tablet 10 mg PO TID 07/29/21 [History Confirmed 07/30/22] ipratropium 0.5 mg-albuterol 3 mg (2.5 mg base)/3 mL nebulization soln 3 ml inhalation Q6H PRN Wheezing 07/29/21 [History Confirmed 07/30/22] levomilnacipran 120 mg capsule,24 hr,extended release (Fetzima) 120 mg PO DAILY 07/29/21 [History Confirmed 07/30/22] levothyroxine 75 mcg tablet 50 mcg PO DAILY 07/29/21 [History Confirmed 07/30/22] metformin 850 mg tablet 850 mg PO DAILY 07/29/21 [History Confirmed 07/30/22] mirtazapine 30 mg tablet 30 mg PO QHS 07/29/21 [History Confirmed 07/30/22] sucralfate 1 gram tablet 1 g PO BID 07/29/21 [History Confirmed 07/30/22] zonisamide 50 mg capsule 50 mg PO BID 07/29/21 [History Confirmed 07/30/22] cyclobenzaprine 10 mg tablet 10 mg PO HS 08/16/21 [History Confirmed 07/30/22] duloxetine 60 mg capsule,delayed release sprinkle 60 mg PO DAILY 08/16/21 [History Confirmed 07/30/22] gabapentin 100 mg capsule 100 mg PO TID 08/16/21 [History Confirmed 07/30/22] insulin glargine 100 unit/mL (3 mL) subcutaneous pen (Basaglar KwikPen U-100 Insulin) 15 unit subcut QAM 08/16/21 [History Confirmed 07/30/22] theophylline 80 mg/15 mL oral elixir 200 mg PO DAILY 08/16/21 [History Confirmed 07/30/22] Objective - Height/Weight Height/Weight: Height 5 ft Weight 103.419 kg - Vital Signs Vital Signs: 07/30/22 15:04 Temperature 97.8 F Pulse Rate [Left Brachial] 82 Respiratory Rate 16 Blood Pressure [Left Arm] 147/77 H 02 Sat by Pulse Oximetry 97 Oxygen Delivery Method Room Air - Pain Back Pain Intensity: 7 Physical Exam Narrative: CONSTITUTIONAL: The patient is in no acute distress. HEAD / FACE: Normocephalic. RESPIRATORY: Normal to inspection. Lungs distant breath sounds. No audible wheezing, rales, rhonchi or rubs. Normal effort. CARDIOVASCULAR: Regular rate and rhythm. No murmurs, gallops, or rubs. ABDOMEN: Bowel sounds normoactive. Soft, nontender and non-distended. No hepatosplenomegaly. No masses noted. INTEGUMENTARY: The skin is unremarkable. No rashes. No suspicious lesions MUSCULOSKELETAL: Normal musculature, no joint deformities or abnormalities, normal range of motion for all four extremities. EXTREMITIES: No edema, cyanosis or clubbing. NEUROLOGICAL: Alert and oriented. Cranial nerves intact. No gross motor deficits. Positive bilateral numbness distal to knees. PSYCHIATRIC: No anxiety or evidence of depression. - ECOG Performance Status ECOG Score: 1 Results - Labs Labs: Diagram of Most Recent CBC and CMP 07/22/22 09:12 04/17/22 10:05 Labs - Last 7 Days 07/22/22 09:12: Free [place] LC, Quant 120.4 H, Free Lambda LC, Quant 32.9 H, FreeKappa/Lambda Ratio 3.66 H - Impressions Bilateral Screening Full Field digital mammogram with 3-D imaging. Full field digital CC and MLO imaging performed. CAD utilized. COMPARISON: 04/17/2021 HISTORY:Screening FINDINGS: Scattered fibroglandular densities of the breast parenchyma identified. No developing architectural distortion, developing focal breast asymmetry or developing malignant calcifications identified. Scattered benign calcifications identified. MM/MM screening mammo BI w/CAD IMPRESSION:No mammographic evidence of malignancy. Routine follow-up recommended in one year. RESULT CODE: 2 Benign Findings(s) DENSITY CODE: 2 (approximately 25-50% glandular) FOLLOW UP: 1YR THE FALSE-NEGATIVE RATE OF MAMMOGRAPHY IS APPROXIMATELY 10%. IMAGING OF A PALPABLE ABNORMALITY MUST BE BASED ON CLINICAL GROUNDS. PATIENT WAS ENTERED INTO A REMINDER SYSTEM WITH A TARGET DUE DATE FOR THE NEXT MAMMOGRAM. 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 She has mild anemia with most recent hemoglobin 11.6, elevated erythrocyte sedimentation rate of 65, most recent renal function panel showed a creatinine of 1.64 correlating to EGFR, [id number] 32. This has not significantly changed over the last year butis lower than prior labs from [id number]. Most recent calcium within normal limits and we do not have recent imaging other than her MRIs which have not shown any bony lytic lesions. The patient does report diffuse pain. She has urinary tract infections intermittently but no other history of chronic infections. She has no personal history of malignancy, chemotherapy, or radiation therapy. 09/11/2021: Patient returns to review urine protein electrophoresis which showed no M spike, urine immunofixation which showed no monoclonality, and kappa/lambdalight chain analysis with mild elevation of ratio. In addition she was noted tohave elevated beta-2 microglobulin, although this could also be reflective of her stage III chronic kidney disease. Baseline Skeletal survey showed no evidence of bony lytic lesions or osteopenia. --She was given the option of surveillance labs every 3 months versus schedulingbone marrow aspiration and biopsy to determine if she has a plasma cell dyscrasia and/or presence of amyloid protein contributing to her neuropathy. She wishes to proceed with bone marrow biopsy. Due to her large body habitus weodessa set up bone marrow biopsy with interventional radiology to ensure proper specimen sampling. 10/24/2021: Bone marrow biopsy performed 09/26/2021 in interventional radiology shows no evidence of plasma cell neoplasm or amyloidosis. She does have absent iron stores and I advised adding ferrous sulfate 1 tablet daily. If she has intolerance of ferrous sulfate or failure to respond, we will arrange parenteraliron therapy. Next follow-up with me will be in 6 months with serum protein electrophoresis, quantitative immunoglobulins, and kappa/lambda light chain analysis. We will also repeat CBC, CMP, and Serum iron profile/ferritin level 10. Moderate complexity visit of 35 minutes. 04/23/2022: eKlsea complains of increased back pain over the last month or so and continued fatigue, dyspnea on exertion. Her iron studies did not improve on 6 months of oral iron supplementation, so will switch to IV iron. Her labs are overall stable with slight increase in K/L ratio, but will continue to monitor only for now. Her M-spike is the same as October 2021 and creatinine is improved. We will repeat cbc, cmp, iron studies, spep, flc and immunoglobulins in 3 months, sooner as needed. She is in agreement with this plan and has no further questions. 07/31/2022: Patient has chronic fatigue and neuropathy. Stable M spike and monoclonal gammopathy labs. We started her on oral iron due to absent iron stores and persistent fatigue. She did not have any significant improvement of fatigue and had low iron saturation 15% 3 months ago therefore she was given parenteral iron with Venofer. She now has normal iron stores but has persistentfatigue. We will continue follow-up with primary care and neurology. Next follow-up for monoclonal gammopathy and iron deficiency in 6 months with appropriate labs as noted above. Low complexity 25- minute follow-up visit. (2) Iron deficiency anemia Qualifiers: Iron deficiency anemia type: unspecified iron deficiency Qualified Code(s):D50.9 - Iron deficiency anemia, unspecified Absent iron stores on bone marrow biopsy with iron saturation low at 15%. Givenher chronic kidney disease and neuropathy we will add ferrous sulfate 1 tablet daily. If she has poor tolerance of oral iron we can consider parenteral iron due to her persistent fatigue. Reassess iron stores in 6 months. 04/23/2022: No improvement in symptoms or iron studies with 6 months of therapy. She confirms she took her iron every day without missing doses. We will plan to switch to IV Venofer 300mg x 3 doses 07/30/2022: No improvement of symptoms but iron studies now show normal iron saturation 23% with ferritin greater than 200. We will monitor her follow-up iron studies in 6 months. No further oral iron. (3) CKD (chronic kidney disease) stage 3, GFR 30-59 ml/min Qualifiers: Chronic kidney disease stage 3 subtype: stage 3b (GFR 30-44) Qualified Code(s): N18.32 - Chronic kidney disease, stage 3b Chronic stable CKD stage 3b. Elevated beta-2 microglobulin likely due to her chronic kidney disease--interestingly since April her creatinine has improved. (4) COPD (chronic obstructive pulmonary disease) Qualifiers: COPD type: emphysema Emphysema type: unspecified Qualified Code(s): J43.9- Emphysema, unspecified Chronic O2 dependence. No recent clinical change. (5) Diabetes Qualifiers: Diabetes mellitus type: type 2 Diabetes mellitus complication status: with neurologic complications Diabetes mellitus complication detail: with polyneuropathy (6) Degenerative joint disease of cervical and lumbar spine (7) Morbid obesity (8) Bipolar disorder with depression - Time with Patient Time Spent with Patient (Follow Up Visit): 25 minutes - Low complexity visit to review iron studies and MGUS labs, follow-up frequency. Coordination of Care & Counseling Time: Greater than 50% of time spent with patient was for coordination of care (as documented) and ggou-ku-xals counseling of patient and/or family. Dictated By: Roxane Bills MD DD/ [id number] Signed By: <Electronically signed by MD Roxane Bills> 07/31/22 [address] [facility] Work Phone: [phone]) 339-854704-07-2023 Evaluation note* Encounter Date Diagnosis Assessment Notes Treatment Notes Treatment Clinical Notes Jul, Essential hypertension (ICD-10 - I10) [facility] Other 04-06-2023 Evaluation note* Encounter Date Diagnosis Assessment Notes Treatment Notes Treatment Clinical Notes Jul, Type 2 diabetes mellitus with diabetic chronic kidney disease (ICD-10 - E11.22) [facility] Other 04-03-2023 Evaluation note* Encounter Date Diagnosis Assessment Notes Treatment Notes Treatment Clinical Notes Jul, Essential hypertension (ICD-10 - I10) [facility] Other 03-27-2023 Evaluation note* Encounter Date Diagnosis Assessment Notes Treatment Notes Treatment Clinical Notes Jun, Edema of both lower extremities due to peripheral venous insufficiency (ICD-10 - I87.2) We reviewed today's full functional venous duplex which shows very mild reflux bilaterally with no significant dilation. She has no open sores or ulcers. She has no edema to speak of on exam today. She tells me she stays quite active overall and complains of no worsening edema. Continue to recommend conservative management with use of graded compression stockings, leg elevation, good skin care moisturizer therapy, weight management, and frequent activity in the overall management of her chronic vein disease. She verbalizes understanding of all discussion, agrees with plan, denies any questions. [facility] Other 03-23-2023 NoteCONSULTATION CONSULTATION DATE: 07/03/2022 TO: Dr. Tyson [facility] CHIEF COMPLAINT: Left lower back pain. HISTORY: She reports the pain as being 5-7/10, sharp in character, increased with activity such as standing, walking and performing transitioning maneuvers. She feels most comfortable in the semi-recumbent position. She denies any change in bowel and bladder habits or new sensorimotor changes in her lower extremities. EXAM: Notable for patient having no clinical radiculopathy or myelopathy involving the lower extremities on today's visit. Patient did have severe pain with lumbar facet loading maneuvers on the left side from L4-S1, with associated myofascial spasm of the lumbar paravertebral muscles. IMPRESSION: Patient appears to have chronic pain, recent flare, which has failed conservative therapy which includes physical therapy for her lower back, the increased use of Flexeril and tramadol for her pain symptoms. She is unable to tolerate nonsteroidals secondary to renal insufficiency. RECOMMENDATIONS: Since she has failed conservative therapy, recommend a diagnostic left sided L4-5, L5-S1 facet joint injection under fluoroscopic guidance. I have discontinued Flexeril secondary to ineffectiveness. Will trial her on Zanaflex 4 mg pills, half a pill to one pill up to b.i.d. as tolerated.[facility] [id number] Evaluation note* Encounter Date Diagnosis Assessment Notes Treatment Notes Treatment Clinical Notes Jun, Type 2 diabetes mellitus with diabetic chronic kidney disease (ICD-10 - E11.22) Jun, Acquired lymphedema of lower extremity (ICD-10 - I89.0) Jun, Cough (ICD-10 - R05.9) [facility] Other 02-02-2023 Evaluation note* Encounter Date Diagnosis Assessment Notes Treatment Notes Treatment Clinical Notes May, Conjunctivitis (ICD-10 - H10.9) [facility] Other 01-25-2023 Evaluation note* Encounter Date Diagnosis Assessment Notes Treatment Notes Treatment Clinical Notes Apr, Type 2 diabetes mellitus with diabetic chronic kidney disease (ICD-10 - E11.22) A1c mildly increased today at 7.6 with elevated blood sugars throughout the day. Recommend increasing Actos-Metformin to BID. She will continue to check home sugars. She will continue current dose of Farxiga and Basaglar. She was referred to endocrinology by pain management. Apr, Breast cancer screening (ICD-10 - Z12.39) Due for screening mammogram Apr, Acquired hypothyroidism (ICD-10 - E03.9) Due for TFTs, in setting of proptosis Apr, Essential hypertension (ICD-10 - I10) Controlled on current dose of antihypertensives, will continue [facility] Other 01-24-2023 NoteCONSULTATION CONSULTATION DATE: 05/06/2022 CHIEF COMPLAINT: Low back pain, bilateral lower extremity pain. HISTORY OF PRESENT ILLNESS: This is a 61-year-old female who is referred to us by Dr. Peri Tyson from [facility]. The patient has had chronic low back pain. It has been gradual onset. The patient reports having low back pain to her buttocks, and at times radiating into her left leg. The patient has been seen by Dr. Groves in [facility], where the patient has received facet injection at one level and epidurals. The patient only had 50% improvement of her pain. Subsequent to that, Dr. Groves had ordered an MRI, which was available to us, which shows multiple level facet pathology. The patient reports the pain as a 7/10; a stabbing sensation. Twisting, pushing, walking, housework, activities aggravate the pain, as does bending. Sitting down mitigates the patient's pain. The patient has attended physical therapy, but could not tolerate it any more. The patient is in stage 3 kidney disease. The patient takes half a [place] tablet on a p.r.n. basis, duloxetine 60 mg, Flexeril 10 mg h.s., gabapentin 900 mg t.i.d., magnesium and Vitamin D3. The patient is on insulin and metformin; however, her sugars are poorly controlled. She states she runs in the high 180+ to 200s. The patient's PAST MEDICAL HISTORY / SURGICAL HISTORY / REVIEW OF SYSTEMS are noted on the chart, along with the MEDICATION LIST, ALLERGIES and the MRI, which was reviewed in office today. PHYSICAL EXAM: Upon physical examination, this is a 60-year-old female, who looks older than stated age. She is fatigued. VITAL SIGNS: 135/74 with a heart rate of 83. At a height of 5', the patient weighs 105 kg. HEAD: Atraumatic. Poor dentition, loss of dentition is noted. Exophthalmos is present in her eyes bilaterally with the possibility of thyroid dysfunction. NECK: The patient has a bullous neck. HEART: No orthopnea. LUNGS: The patient does wear nasal O2, has an oxygen tank. ABDOMEN: Protuberant, distended. BACK: Extension, compression, direct palpation along the posterior elements aggravate the patient's pain concordant with facet arthropathy, lumbar spondylosis. EXTREMITIES: Decreased muscle tonicity is noted. MUSCULOSKELETAL: Intact in the lower extremities at 4+/5. NEUROLOGICALLY: Hypoesthesia is noted in a stocking distribution bilaterally. Polyneuropathy of the upper extremities are also present. PSYCHIATRICALLY: Once again, the patient is fatigued and tired. IMPRESSION: Current working diagnosis on the patient is poorly controlled diabetes with diabetic neuropathy, possible thyroid dysfunction, low back pain, lumbar spondylosis, lumbar radiculitis. The patient is receiving iron therapy for anemia, under the care of Dr. Bills, Hematology/Oncology. PLAN: I believe the patient should add a multivitamin to her regimen. Gabapentin will be decreased from 900 mg t.i.d. to 300 mg t.i.d., especially due to the stage 3 kidney disease. Endocrine consult to help with regards to the insulin dependent diabetes and the possibility of thyroid dysfunction. In the interim, tramadol 50 mg t.i.d. will be given to the patient to initiate treatment. Depending on how the patient responds, we can increase that to [place] 5/325 on a t.i.d. basis. I would withhold any treatments for the time being, given the uncontrolled diabetes and the effects of the steroids that would be required to help her. However, once she is under control, I believe we would proceed with the medial branch blocks at the level of L3, 4 and 5 bilaterally. The patient understands and would like to proceed. CC: Peri Tyson D.O. Brenden Groves D.O.[facility] [id number] Progress note Author Shanae [facility] April 23, 2022 12:40pm Note Date/Time April 23, 2022 1 1:14[facility] [place] [place] [address] Hem/Onc Follow Up Note - OP Signed Patient: Kelsea Turcios MR#: [id number] : 1960 Acct:[id number] Age/Sex: 61 / F Type: REG RCR Copies to: MD Brenden Manzo DO Kevin T Carnahan, D.O.~ Subjective Date/Time of Service: Date of Service: 04/23/2022 Time of Service: 11:14 Chief Complaint: Patient is here for a 6 month follow up with labs 04/17/2022 for review. No concerns voiced at this time. HPI: 04/23/2022: Kelsea presents for follow-up for her MGUS and iron deficiency anemia.She continues with a lot of fatigue and dyspnea on exertion. She endorses dark/black stool while on oral iron supplementation for the last 6 months. She also notes increased low back and left leg pain over the last month or so that is very bothersome for her. Otherwise no new symptoms. Labs are reviewed and heriron has not improved over the last 6 months since initiating oral supplementation. We will switch to IV iron infusions at this point. Remaining labs stable overall with slightly increased K/L ratio. We will order imaging on her lower back/hip area to evaluate her increased pain. Follow-up will be in 3mowith repeat labs. 10/23/2021: Kelsea is here for follow-up of image guided bone marrow aspiration and biopsy performed in interventional radiology on 09/26/2021. She did have a mildly elevated kappa/lambda light chain ratio and has had polyneuropathy, therefore bone marrow aspiration biopsy was performed to evaluate for amyloidosis or other plasma cell dyscrasia. No change of clinical symptoms overthe last 6 weeks. --Bone marrow biopsy showed a slightly hypercellular bone marrow for patient's age (50% cellularity). No evidence of lymphoproliferative disorder, no evidenceof plasma cell neoplasm identified. No increased blasts, no evidence of dyspoiesis identified. [place] red stain was negative for any evidence of amyloiddeposition. There was absence of stainable iron storage (0/4+). -- We discussed that iron deficiency can sometimes be associated with leg pain and heaviness, therefore I recommended sending baseline serum iron profile whichshowed iron saturation 15% and ferritin 76.6. I am initiating oral ferrous sulfate 325 mg daily over the next 6 months and we will recheck her CBC with iron stores at that time. I will also recheck her free kappa/lambda light chains and immunoglobulins IgG/IgA/IgM with serum protein electrophoresis at 6 months. If she has poor tolerance of oral iron we can coordinate parenteral iron. She may return sooner than 6 months if new symptoms arise. She is in agreement with this plan he was 35-minute moderate complexity follow-up visit. 09/11/2021: I reviewed the results of patient's labs from consult about 4 weeks ago. She did not have any monoclonality noted on urinalysis but does have a mildly elevated kappa/lambda light chain ratio. The patient was given the option of surveillance with every 3-month monoclonal gammopathy labs versus bonemarrow biopsy to determine if she has presence of amyloidosis or other plasma cell dyscrasia. Patient notes that she has been suffering with polyneuropathy and would like to proceed with bone marrow biopsy for further evaluation. Due to her BMI 48, I recommended interventional radiology to perform image guided bone marrow aspiration and biopsy on her and we will review the results approximately 3 weeks after procedure. She is in agreement with this plan over this moderate complexity visit over 25 minutes for review of laboratories and coordination of her image guided bone marrow biopsy. PREVIOUS HISTORY from original consult 08/16/2021: This is a 60-year-old lady who has been followed by neurology for peripheral neuropathy which has been deemed polyneuropathy of axonal loss and type and moderate in severity. She had a prior EMG in 2016 but most recent EMG of bilateral lower extremities was significantly worse. She had an MRI of the lumbar spine without contrast on 09/14/2020 showing a lipoma of her from terminaleand mild lower lumbar discovertebral degenerative changes including facet arthropathy but no central stenosis. She also had a MRI of the cervical spine 09/22/2017 showing mild disc space narrowing at C3-C4 and C5-C6 that was otherwise unremarkable. Bilateral upper extremity EMG showed a remote C8 radiculopathy on the right which was moderate. She had work-up with serum protein electrophoresis on 07/02/2021 showing a monoclonal spike of 0.4 g/dL (no prior labs for comparison). Serum immunofixation showed a monoclonal protein with kappa light chain specificity however quantitative immunoglobulin showed anelevation of IgA at 508 with normal IgG 1134 and IgM 79. She had an antineutrophil antibody screen that was negative and rheumatoid factor was less than 10. She reports chronic fatigue, progressive increase in weight and she is noted to have a BMI of 49. She has mild anemia with most recent hemoglobin 11.6, elevated erythrocyte sedimentation rate of 65, most recent renal function panel showed a creatinine of 1.64 correlating to EGFR, [id number]-Jowjqyvq 32. This has not significantly changed over the last year but is lower than prior labs from 2017- 2020. Most recent calcium within normal limits and we do not have recent imaging other than her MRIs which have not shown any bony lytic lesions. The patient does report diffuse pain. She has urinary tract infections intermittently but no other history of chronic infections. She has no personal history of malignancy, chemotherapy, or radiation therapy. DIAGNOSIS: 1. Monoclonal gammopathy of undetermined significance, possibly associated neuropathy 2. Longstanding diabetes mellitus over the last 8 years 3. Chronic peripheral neuropathy that is recently been worsening 4. 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 COPD with oxygen dependence past 8 years - Summary of Therapies Summary of Therapies: 1. MGUS, no plasma cell neoplasm or amyloidosis, followed by neurology on bone marrow biopsy 09/26/2021 2. Neuropathy unclear etiology 3. Absent iron stores on bone marrow biopsy with iron saturation 15%, started oral iron 10/23/2020 ROS Details: All systems reviewed & no additional complaints except as documented [facility] - Medical History Medical History: Medical History (Last Reviewed 10/24/21 @ 14:19 by Roxane Bills MD) Abdominal pain Anxiety Asthma COPD (chronic obstructive pulmonary disease) Diabetes Diarrhea GERD (gastroesophageal reflux disease) Hypertension Nausea On home oxygen therapy 3-5 L nasal cannula Sleep apnea Spinal stenosis Wound of right leg - Surgical History Surgical History: Surgical History (Last Reviewed 10/24/21 @ 14:19 by Roxane Bills MD) H/O foot surgery bilateral H/O: section x 4 History of hysterectomy Hx of cholecystectomy - Family History Family History: Family History (Last Reviewed 10/24/21 @ 14:19 by Roxane Bills MD) Son Hypertension Sister Hypertension Colon polyp Grandparent Breast cancer Grandparent Leukemia Brother Diabetes - Social History Smoking Status: Never smoker Substance Use Type: None Social History Comments: 1 son lives with her and spouse, he is 30 y.o. Home Medications & Allergies Allergies codeine Allergy (Verified 04/23/22 10:54) Rash honey Allergy (Verified 04/23/22 10:54) Hives morphine Allergy (Verified 04/23/22 10:54) Gastrointestinal Upset Home Medications cholecalciferol (vitamin D3) 50 mcg (2,000 unit) capsule 1 cap PO DAILY 12/16/16[History Confirmed 10/23/21] gabapentin 800 mg tablet 1 tab PO TID 04/17/17 [History Confirmed 10/23/21] montelukast 10 mg tablet 1 tab PO QHS 10/05/17 [History Confirmed 10/23/21] amlodipine 5 mg tablet 10 mg PO DAILY 01/24/18 [History Confirmed 10/23/21] brexpiprazole 2 mg tablet (Rexulti) 3 mg PO DAILY 01/24/18 [History Confirmed 10/23/21] budesonide-formoterol HFA 160 mcg-4.5 mcg/actuation aerosol inhaler (Symbicort) 2 puff inhalation BID 01/24/18 [History Confirmed 10/23/21] carvedilol 6.25 mg tablet 25 mg PO BID 01/24/18 [History Confirmed 10/23/21] hydrocodone 5 mg-acetaminophen 325 mg tablet 5 mg PO DAILY PRN Pain 01/24/18 [History Confirmed 10/23/21] magnesium oxide 400 mg PO DAILY 01/24/18 [History Confirmed 10/23/21] omeprazole 40 mg capsule,delayed release 40 mg PO DAILY 01/24/18 [History Confirmed 10/23/21] oxybutynin chloride 10 mg tablet,extended release 24 hr 10 mg PO DAILY 01/24/18 [History Confirmed 10/23/21] albuterol sulfate 90 mcg/actuation aerosol inhaler (ProAir HFA) 1 puff inhalation Q4H PRN Wheezing 07/29/21 [History Confirmed 10/23/21] amitriptyline 10 mg tablet 10 mg PO DAILY 07/29/21 [History Confirmed 10/23/21] clobetasol 0.05 % topical ointment 1 applic topical DAILY Use with dressing change x 1 week 1 week #30 grams 07/29/21 [Rx Confirmed 10/23/21] colestipol 1 gram tablet 2 g PO DAILY 07/29/21 [History Confirmed 10/23/21] dicyclomine 20 mg tablet 20 mg PO QID 07/29/21 [History Confirmed 10/23/21] fluticasone propionate 50 mcg/actuation nasal spray,suspension 1 spray intranasal DAILY 07/29/21 [History Confirmed 10/23/21] hydroxyzine HCl 10 mg tablet 10 mg PO TID 07/29/21 [History Confirmed 10/23/21] ipratropium 0.5 mg-albuterol 3 mg (2.5 mg base)/3 mL nebulization soln 3 ml inhalation Q6H PRN Wheezing 07/29/21 [History Confirmed 10/23/21] levomilnacipran 120 mg capsule,24 hr,extended release (Fetzima) 120 mg PO DAILY 07/29/21 [History Confirmed 10/23/21] levothyroxine 75 mcg tablet 50 mcg PO DAILY 07/29/21 [History Confirmed 10/23/21] metformin 850 mg tablet 850 mg PO DAILY 07/29/21 [History Confirmed 10/23/21] mirtazapine 30 mg tablet 30 mg PO QHS 07/29/21 [History Confirmed 10/23/21] sucralfate 1 gram tablet 1 g PO BID 07/29/21 [History Confirmed 10/23/21] zonisamide 50 mg capsule 50 mg PO BID 07/29/21 [History Confirmed 10/23/21] cyclobenzaprine 10 mg tablet 10 mg PO HS 08/16/21 [History Confirmed 10/23/21] duloxetine 60 mg capsule,delayed release sprinkle 60 mg PO DAILY 08/16/21 [History Confirmed 10/23/21] gabapentin 100 mg capsule 100 mg PO TID 08/16/21 [History Confirmed 10/23/21] insulin glargine 100 unit/mL (3 mL) subcutaneous pen (Basaglar KwikPen U-100 Insulin) 15 unit subcut QAM 08/16/21 [History Confirmed 10/23/21] theophylline 80 mg/15 mL oral elixir 200 mg PO DAILY 08/16/21 [History Confirmed 10/23/21] ferrous sulfate 325 mg (65 mg iron) tablet (Iron (ferrous sulfate)) 325 mg PO DAILY 10/23/21 [History Confirmed 10/23/21] ferrous sulfate 325 mg (65 mg iron) tablet (iron) 325 mg PO DAILY #30 tabs 10/23/21 [Rx] Objective - Height/Weight Height/Weight: Height 5 ft Weight 106.3 kg - Vital Signs Vital Signs: 04/23/22 10:55 Pulse Rate [Left Brachial] 75 Respiratory Rate 20 Blood Pressure [Left Arm] 145/82 H 02 Sat by Pulse Oximetry 100 Oxygen Delivery Method Nasal Cannula Oxygen Flow Rate 5 - Pain Back Pain Intensity: 7 Physical Exam Narrative: CONSTITUTIONAL: The patient is in no acute distress. HEAD / FACE: Normocephalic. RESPIRATORY: Normal to inspection. Lungs distant breath sounds. No audible wheezing, rales, rhonchi or rubs. Normal effort. CARDIOVASCULAR: Regular rate and rhythm. No murmurs, gallops, or rubs. ABDOMEN: Bowel sounds normoactive. Soft, nontender and non-distended. No hepatosplenomegaly. No masses noted. INTEGUMENTARY: The skin is unremarkable. No rashes. No suspicious lesions MUSCULOSKELETAL: Normal musculature, no joint deformities or abnormalities, normal range of motion for all four extremities. EXTREMITIES: No edema, cyanosis or clubbing. NEUROLOGICAL: Alert and oriented. Cranial nerves intact. No gross motor deficits. Positive bilateral numbness distal to knees. PSYCHIATRIC: No anxiety or evidence of depression. Results - Labs Labs: Diagram of Most Recent CBC and CMP 04/17/22 10:05 04/17/22 10:05 Labs - Last 7 Days 04/17/22 10:05: Serum Total Protein 7.3, Albumin (Send Out) 3.4, Globulin (PEP) 3.9, Albumin/Globulin (PEP) 0.9, Fdosn-7-Mnpmkqncs 0.3, Jebzo-8-Yuieiylbn 0.9, Beta Globulins 1.4 H, Gamma Globulins 1.3, M-Damien 0.4 H, PEP Note , IgG 1443, IgA 625 H, IgM 98, Free [place] LC, Quant 162.6 H, Free Lambda LC, Quant 44.5 H, Free [place]/Lambda Ratio 3.65 H 04/17/22 10:05: PHA Creatinine Clear 51.63, Sodium 138, Potassium 3.5, Chloride 98, Carbon Dioxide 30.7 H, Anion Gap 12.8, BUN 17, Creatinine 1.26 H, Est GFR ( Amer) 52, Est GFR (Non-Af Amer) 43, Glucose 269 H, Calcium 9.1, Iron 53, TIBC 346, Iron Saturation 15.3 L, Transferrin 247, Ferritin 72.6, Total Bilirubin 0.3, AST 23, ALT 22, Alkaline Phosphatase 121 H, Total Protein 7.0, Albumin 3.2, Globulin 3.8, Albumin/Globulin Ratio 0.8 04/17/22 10:05: Corrected WBC 10.8, Uncorrected WBC Count 10.8, RBC 4.02, Hgb 11.2 L, Hct 35.4, MCV 88.1, MCH 27.9, MCHC 31.6 L, RDW 15.7 H, Plt Count 273, MPV 7.6, Neut % (Auto) 61.2, Lymph % (Auto) 24.5, [place] % (Auto) 7.9, Eos % (Auto) 5.9, Baso % (Auto) 0.5, Nucleat RBC Rel Count 0.2, Neut # (Auto) 6.6, Lymph # (Auto) 2.6, [place] # (Auto) 0.8, Eos # (Auto) 0.6 H, Baso # (Auto) 0.1 Assessment and Plan (1) 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 She has mild anemia with most recent hemoglobin 11.6, elevated erythrocyte sedimentation rate of 65, most recent renal function panel showed a creatinine of 1.64 correlating to EGFR, uoe-[id number]-Jkcqnlju 32. This has not significantly changed over the last year but is lower than prior labs from 5205-2218. Most recent calcium within normal limits and we do not have recent imaging other than her MRIs which have not shown any bony lytic lesions. The patient does report diffuse pain. She has urinary tract infections intermittently but no other history of chronic infections. She has no personal history of malignancy, chemotherapy, or radiation therapy. 09/11/2021: Patient returns to review urine protein electrophoresis which showed no M spike, urine immunofixation which showed no monoclonality, and kappa/lambdalight chain analysis with mild elevation of ratio. In addition she was noted tohave elevated beta-2 microglobulin, although this could also be reflective of her stage III chronic kidney disease. Baseline Skeletal survey showed no evidence of bony lytic lesions or osteopenia. She was given the option of surveillance labs every 3 months versus scheduling bone marrow aspiration and biopsy to determine if she has a plasma cell dyscrasia and/or presence of amyloid protein contributing to her neuropathy. She wishes to proceed with bone marrow biopsy. Due to her large body habitus wewill set up bone marrow biopsy with interventional radiology to ensure proper specimen sampling. 10/24/2021: Bone marrow biopsy performed 09/26/2021 in interventional radiology shows no evidence of plasma cell neoplasm or amyloidosis. She does have absent iron stores and I advised adding ferrous sulfate 1 tablet daily. If she has intolerance of ferrous sulfate or failure to respond, we will arrange parenteraliron therapy. Next follow-up with me will be in 6 months with serum protein electrophoresis, quantitative immunoglobulins, and kappa/lambda light chain analysis. We will also repeat CBC, CMP, and Serum iron profile/ferritin level 10. Moderate complexity visit of 35 minutes. 04/23/2022: Kelsea complains of increased back pain over the last month or so and continued fatigue, dyspnea on exertion. Her iron studies did not improve on 6 months of oral iron supplementation, so will switch to IV iron. Her labs are overall stable with slight increase in K/L ratio, but will continue to monitor only for now. Her M-spike is the same as October 2021 and creatinine is improved. We will repeat cbc, cmp, iron studies, spep, flc and immunoglobulins in 3 months, sooner as needed. She is in agreement with this plan and has no further questions. (2) Iron deficiency anemia Qualifiers: Iron deficiency anemia type: unspecified iron deficiency Qualified Code(s):D50.9 - Iron deficiency anemia, unspecified Absent iron stores on bone marrow biopsy with iron saturation low at 15%. Givenher chronic kidney disease and neuropathy we will add ferrous sulfate 1 tablet daily. If she has poor tolerance of oral iron we can consider parenteral iron due to her persistent fatigue. Reassess iron stores in 6 months. 04/23/2022: No improvement in symptoms or iron studies with 6 months of therapy. She confirms she took her iron every day without missing doses. We will plan to switch to IV Venofer 300mg x 3 doses (3) CKD (chronic kidney disease) stage 3, GFR 30-59 ml/min Qualifiers: Chronic kidney disease stage 3 subtype: stage 3b (GFR 30-44) Qualified Code(s): N18.32 - Chronic kidney disease, stage 3b Chronic stable CKD stage 3b. Elevated beta-2 microglobulin likely due to her chronic kidney disease. (4) COPD (chronic obstructive pulmonary disease) Qualifiers: COPD type: emphysema Emphysema type: unspecified Qualified Code(s): J43.9- Emphysema, unspecified Chronic O2 dependence. No recent clinical change. (5) Diabetes Qualifiers: Diabetes mellitus type: type 2 Diabetes mellitus complication status: with neurologic complications Diabetes mellitus complication detail: with polyneuropathy (6) Degenerative joint disease of cervical and lumbar spine (7) Morbid obesity (8) Bipolar disorder with depression - Time with Patient Time Spent with Patient (Follow Up Visit): 35 minutes - Moderate complexity visit to review bone marrow biopsy and recent labs, follow-up frequency, iron deficiency anemia Coordination of Care & Counseling Time: Greater than 50% of time spent with patient was for coordination of care (as documented) and iosp-vy-zwnl counseling of patient and/or family. Dictated By: Shanae Galicia APRN DD/ 1114 Signed By: <Electronically signed by LUCI Galicia> 04/23/22 12[address] [facility] Work Phone: [phone] 116-925501-10-2023 Evaluation note* Encounter Date Diagnosis Assessment Notes Treatment Notes Treatment Clinical Notes Apr, Controlled substance agreement signed (ICD-10 - Z79.899) [facility] Other 01-09-2023 Evaluation note* Encounter Date Diagnosis Assessment Notes Treatment Notes Treatment Clinical Notes Apr, Unspecified vitamin D deficiency (ICD9-CM - 268.9) Apr, Type 2 diabetes mellitus with diabetic chronic kidney disease (ICD-10 - E11.22) [facility] Other 11-28-2022 Evaluation note* Encounter Date Diagnosis Assessment Notes Treatment Notes Treatment Clinical Notes Feb, Type 2 diabetes mellitus with diabetic chronic kidney disease (ICD-10 - E11.22) [facility] Other 11-08-2022 Evaluation note* Encounter Date Diagnosis Assessment Notes Treatment Notes Treatment Clinical Notes Feb, Controlled substance agreement signed (ICD-10 - Z79.899) Feb, Abdominal pain (ICD-10 - R10.9) [facility] Other 11-03-2022 Evaluation note* Encounter Date Diagnosis Assessment Notes Treatment Notes Treatment Clinical Notes Feb, Acquired lymphedema of lower extremity (ICD-10 - I89.0) [facility] Other 11-01-2022 Evaluation note* Encounter Date Diagnosis Assessment Notes Treatment Notes Treatment Clinical Notes Feb, Type 2 diabetes mellitus without complications (ICD-10 - E11.9) [facility] Other 10-31-2022 Evaluation note* Encounter Date Diagnosis Assessment Notes Treatment Notes Treatment Clinical Notes Jan, UTI (urinary tract infection) (ICD-10 - N39.0) [facility] Other 10-24-2022 Evaluation note* Encounter Date Diagnosis Assessment Notes Treatment Notes Treatment Clinical Notes Jan, Type 2 diabetes mellitus with diabetic chronic kidney disease (ICD-10 - E11.22) A1c at goal on current medications, will continue. Jan, Flank pain (ICD-10 - R10.9) UA without blood, small LE, will send for culture. Likely MSK, discussed recommendation for heating pad, OTC topical relief. To follow up if no improvement or worsening symptoms. Jan, Essential hypertension (ICD-10 - I10) BP well controlled on current medications, will continue [facility] Other 10-12-2022 Evaluation note* Encounter Date Diagnosis Assessment Notes Treatment Notes Treatment Clinical Notes Jan, Controlled substance agreement signed (ICD-10 - Z79.899) [facility] Other 09-12-2022 Evaluation note* Encounter Date Diagnosis Assessment Notes Treatment Notes Treatment Clinical Notes Dec, Other chronic pain (ICD-10 - G89.29) Was working on previous PCP to wean down on dosage of [place] 5-325. She currently is not taking this every day. She has upcoming f/u for a back injection and was recommended to consider pain management referral for RFA. Can continue use of [place] sparingly as needed for severe pain. I have personally reviewed the OARRS report for this patient. I have considered the risks of abuse, dependence, addiction and diversion. I believe that it is clinically appropriate for this patient to be prescribed this medication based on documented diagnosis. CSA and Utox obtained today Dec, Controlled substance agreement signed (ICD-10 - Z79.899) Dec, Hematuria, unspecified type (ICD-10 - R31.9) UA without hematuria currently. Patient declines pelvic exam for evaluation. Trace LE on UA, will send urine culture. To follow up if any recurrent episodes and would recommend pelvic exam for evaluation. Dec, Controlled type 2 diabetes mellitus with complication, without long-term current use of insulin (ICD-10 - E11.8) With elevated blood sugars in the afternoon will adjust timing of basaglar to the AM. Follow up in 6 weeks for recheck of a1c. Dec, Essential hypertension (ICD-10 - I10) Controlled on current dose of amlodipine and clonidine, will continue Dec, TANYA (obstructive sleep apnea) (ICD-10 - G47.33) Referral to sleep medicine for evaluation with ?diagnosis of narcolepsy in setting of TANYA. [facility] Other 08-19-2022 Evaluation note* Encounter Date Diagnosis Assessment Notes Treatment Notes Treatment Clinical Notes Nov, Essential hypertension (ICD-10 - I10) [facility] Other 07-14-2022 Progress note Author Roxane Bills [facility] October 24, 2021 2:26pm Note Date/Time October 23, 2021 1:18 pm [facility] [place] [address] Hem/Onc Follow Up Note - OP Signed Patient: Kelsea Turcios MR#: [id number] : 1960 Acct:[id number] Age/Sex: 61 / F Type: REG RCR Copies to: Brenden Groves, DO Giovanni Tyler D.O.~ Subjective Date/Time of Service: Date of Service: 10/23/2021 Time of Service: 13:17 Chief Complaint: Patient is here today for 6 week follow up visit to go over bone marrow biopsy. HPI: 10/23/2021: Kelsea is here for follow-up of image guided bone marrow aspiration and biopsy performed in interventional radiology on 09/26/2021. She did have a mildly elevated kappa/lambda light chain ratio and has had polyneuropathy, therefore bone marrow aspiration biopsy was performed to evaluate for amyloidosis or other plasma cell dyscrasia. No change of clinical symptoms overthe last 6 weeks. --Bone marrow biopsy showed a slightly hypercellular bone marrow for patient's age (50% cellularity). No evidence of lymphoproliferative disorder, no evidenceof plasma cell neoplasm identified. No increased blasts, no evidence of dyspoiesis identified. [place] red stain was negative for any evidence of amyloiddeposition. There was absence of stainable iron storage (0/4+). -- We discussed that iron deficiency can sometimes be associated with leg pain and heaviness, therefore I recommended sending baseline serum iron profile whichshowed iron saturation 15% and ferritin 76.6. I am initiating oral ferrous sulfate 325 mg daily over the next 6 months and we will recheck her CBC with iron stores at that time. I will also recheck her free kappa/lambda light chains and immunoglobulins IgG/IgA/IgM with serum protein electrophoresis at 6 months. If she has poor tolerance of oral iron we can coordinate parenteral iron. She may return sooner than 6 months if new symptoms arise. She is in agreement with this plan he was 35-minute moderate complexity follow-up visit. 09/11/2021: I reviewed the results of patient's labs from consult about 4 weeks ago. She did not have any monoclonality noted on urinalysis but does have a mildly elevated kappa/lambda light chain ratio. The patient was given the option of surveillance with every 3-month monoclonal gammopathy labs versus bonemarrow biopsy to determine if she has presence of amyloidosis or other plasma cell dyscrasia. Patient notes that she has been suffering with polyneuropathy and would like to proceed with bone marrow biopsy for further evaluation. Due to her BMI 48, I recommended interventional radiology to perform image guided bone marrow aspiration and biopsy on her and we will review the results approximately 3 weeks after procedure. She is in agreement with this plan over this moderate complexity visit over 25 minutes for review of laboratories and coordination of her image guided bone marrow biopsy. PREVIOUS HISTORY from original consult 08/16/2021: This is a 60-year-old lady who has been followed by neurology for peripheral neuropathy which has been deemed polyneuropathy of axonal loss and type and moderate in severity. She had a prior EMG in 2016 but most recent EMG of bilateral lower extremities was significantly worse. She had an MRI of the lumbar spine without contrast on 09/14/2020 showing a lipoma of her from terminaleand mild lower lumbar discovertebral degenerative changes including facet arthropathy but no central stenosis. She also had a MRI of the cervical spine 09/22/2017 showing mild disc space narrowing at C3-C4 and C5-C6 that was otherwise unremarkable. Bilateral upper extremity EMG showed a remote C8 radiculopathy on the right which was moderate. She had work-up with serum protein electrophoresis on 07/02/2021 showing a monoclonal spike of 0.4 g/dL (no prior labs for comparison). Serum immunofixation showed a monoclonal protein with kappa light chain specificity however quantitative immunoglobulin showed anelevation of IgA at 508 with normal IgG 1134 and IgM 79. She had an antineutrophil antibody screen that was negative and rheumatoid factor was less than 10. She reports chronic fatigue, progressive increase in weight and she is noted to have a BMI of 49. She has mild anemia with most recent hemoglobin 11.6, elevated erythrocyte sedimentation rate of 65, most recent renal function panel showed a creatinine of 1.64 correlating to EGFR, [id number]-Mwrijmzu 32. This has not significantly changed over the last year but is lower than prior labs from 2017- 2020. Most recent calcium within normal limits and we do not have recent imaging other than her MRIs which have not shown any bony lytic lesions. The patient does report diffuse pain. She has urinary tract infections intermittently but no other history of chronic infections. She has no personal history of malignancy, chemotherapy, or radiation therapy. DIAGNOSIS: 1. Monoclonal gammopathy of undetermined significance, possibly associated neuropathy 2. Longstanding diabetes mellitus over the last 8 years 3. Chronic peripheral neuropathy that is recently been worsening 4. 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 COPD with oxygen dependence past 8 years - Summary of Therapies Summary of Therapies: 1. MGUS, no plasma cell neoplasm or amyloidosis, followed by neurology on bone marrow biopsy 09/26/2021 2. Neuropathy unclear etiology 3. Absent iron stores on bone marrow biopsy with iron saturation 15%, started oral iron 10/23/2020 ROS Details: All systems reviewed & no additional complaints except as documented Subjective/ROS - Narrative: No change in review of systems from original consult 08/16/2021 CONSTITUTIONAL: Positive for chronic fatigue increasing over the past year, negative for fever or night sweats. HEAD AND NECK: Negative for changes in hearing and vision. Negative for mouth ulcers, nasal congestion and nasal drainage. PULMONARY: Negative for chest pain, stable chronic cough and dyspnea. Chronic oxygen dependence due to COPD. CARDIOVASCULAR: Negative for claudication and irregular heartbeat/palpitations. GASTROINTESTINAL: Negative for abdominal pain, constipation, decreased appetite,diarrhea, nausea, and vomiting. GENITOURINARY: Negative for dysuria and hematuria. ENDOCRINE: Negative for cold intolerance and heat intolerance. Chronic diabetes, insulin requiring 8 years. CENTRAL NERVOUS SYSTEM: Positive for gait disturbance secondary to chronic neuropathy. No headache and radiculopathy left lower extremity/right upper extremity. PSYCHIATRIC: Negative for anxiety--positive for bipolar depression controlled onmedications. DERMATOLOGICAL: Negative for pruritus and rash. Negative for suspicious skin lesions. MUSCULOSKELETAL: Positive for cervical and lumbar back pain with radiculopathy. No other bone/joint symptoms. HEMATOLOGICAL: Negative for bleeding and easy bruising. Negative for history of transfusion or thromboembolic disease ALLERGY: Negative for environmental allergies and food allergies. PMFSH - History Attestation statement: The following information was validated with the patient. Source: Old Records Reviewed - Medical History Medical History: Medical History (Last Reviewed 10/24/21 @ 14:19 by Roxane Bills MD) Abdominal pain Anxiety Asthma COPD (chronic obstructive pulmonary disease) Diabetes Diarrhea GERD (gastroesophageal reflux disease) Hypertension Nausea On home oxygen therapy 3-5 L nasal cannula Sleep apnea Spinal stenosis Wound of right leg - Surgical History Surgical History: Surgical History (Last Reviewed 10/24/21 @ 14:19 by Roxane Bills MD) H/O foot surgery bilateral H/O: section x 4 History of hysterectomy Hx of cholecystectomy - Family History Family History: Family History (Last Reviewed 10/24/21 @ 14:19 by Roxane Bills MD) Son Hypertension Sister Hypertension Colon polyp Grandparent Breast cancer Grandparent Leukemia Brother Diabetes - Social History Smoking Status: Never smoker Substance Use Type: None Social History Comments: 1 son lives with her and spouse, he is 30 y.o. Home Medications & Allergies Allergies codeine Allergy (Verified 10/23/21 13:13) Rash honey Allergy (Verified 10/23/21 13:13) Hives morphine Allergy (Verified 10/23/21 13:13) Gastrointestinal Upset Home Medications cholecalciferol (vitamin D3) 50 mcg (2,000 unit) capsule 1 cap PO DAILY 12/16/16[History Confirmed 10/23/21] gabapentin 800 mg tablet 1 tab PO TID 04/17/17 [History Confirmed 10/23/21] montelukast 10 mg tablet 1 tab PO QHS 10/05/17 [History Confirmed 10/23/21] amlodipine 5 mg tablet 10 mg PO DAILY 01/24/18 [History Confirmed 10/23/21] brexpiprazole 2 mg tablet (Rexulti) 3 mg PO DAILY 01/24/18 [History Confirmed 10/23/21] budesonide-formoterol HFA 160 mcg-4.5 mcg/actuation aerosol inhaler (Symbicort) 2 puff INHALATION BID 01/24/18 [History Confirmed 10/23/21] carvedilol 6.25 mg tablet 25 mg PO BID 01/24/18 [History Confirmed 10/23/21] hydrocodone 5 mg-acetaminophen 325 mg tablet 5 mg PO DAILY PRN 01/24/18 [History Confirmed 10/23/21] magnesium oxide 400 mg PO DAILY 01/24/18 [History Confirmed 10/23/21] omeprazole 40 mg capsule,delayed release 40 mg PO DAILY 01/24/18 [History Confirmed 10/23/21] oxybutynin chloride 10 mg tablet,extended release 24 hr 10 mg PO DAILY 01/24/18 [History Confirmed 10/23/21] albuterol sulfate 90 mcg/actuation aerosol inhaler (ProAir HFA) 1 puff INHALATION Q4H PRN 07/29/21 [History Confirmed 10/23/21] amitriptyline 10 mg tablet 10 mg PO DAILY 07/29/21 [History Confirmed 10/23/21] clobetasol 0.05 % topical ointment 1 applic TOPICAL DAILY 7 Days #30 g 07/29/21 [Rx Confirmed 10/23/21] colestipol 1 gram tablet 2 g PO DAILY 07/29/21 [History Confirmed 10/23/21] dicyclomine 20 mg tablet 20 mg PO QID 07/29/21 [History Confirmed 10/23/21] fluticasone propionate 50 mcg/actuation nasal spray,suspension 1 spray INTRANASAL DAILY 07/29/21 [History Confirmed 10/23/21] hydroxyzine HCl 10 mg tablet 10 mg PO TID 07/29/21 [History Confirmed 10/23/21] ipratropium 0.5 mg-albuterol 3 mg (2.5 mg base)/3 mL nebulization soln 3 ml INHALATION Q6H PRN 07/29/21 [History Confirmed 10/23/21] levomilnacipran 120 mg capsule,24 hr,extended release (F[place]ima) 120 mg PO DAILY 07/29/21 [History Confirmed 10/23/21] levothyroxine 75 mcg tablet 50 mcg PO DAILY 07/29/21 [History Confirmed 10/23/21] metformin 850 mg tablet 850 mg PO DAILY 07/29/21 [History Confirmed 10/23/21] mirtazapine 30 mg tablet 30 mg PO QHS 07/29/21 [History Confirmed 10/23/21] sucralfate 1 gram tablet 1 g PO BID 07/29/21 [History Confirmed 10/23/21] zonisamide 50 mg capsule 50 mg PO BID 07/29/21 [History Confirmed 10/23/21] cyclobenzaprine 10 mg tablet 10 mg PO HS 08/16/21 [History Confirmed 10/23/21] duloxetine 60 mg capsule,delayed release sprinkle 60 mg PO DAILY 08/16/21 [History Confirmed 10/23/21] gabapentin 100 mg capsule 100 mg PO TID 08/16/21 [History Confirmed 10/23/21] insulin glargine 100 unit/mL (3 mL) subcutaneous pen (Basaglar KwikPen U-100 Insulin) 15 unit SUBCUT QAM 08/16/21 [History Confirmed 10/23/21] theophylline 80 mg/15 mL oral elixir 200 mg PO DAILY 08/16/21 [History Confirmed 10/23/21] ferrous sulfate 325 mg (65 mg iron) tablet (Iron (ferrous sulfate)) 325 mg PO DAILY 10/23/21 [History Confirmed 10/23/21] ferrous sulfate 325 mg (65 mg iron) tablet (iron) 325 mg PO DAILY #30 tab 10/23/21 [Rx] Objective - Height/Weight Height/Weight: Height 5 ft Weight 110.677 kg - Vital Signs Vital Signs: 10/23/21 13:14 Temperature 97.0 F L Pulse Rate [Left Brachial] 70 Respiratory Rate 16 Blood Pressure [Left Arm] 148/76 H 02 Sat by Pulse Oximetry 97 - Pain Back Pain Intensity: 6 Physical Exam Narrative: CONSTITUTIONAL: The patient is in no acute distress. HEAD / FACE: Normocephalic. EYES: Pupils are equal and reactive to light. Conjunctivae and lids are benign in appearance. Ocular movement intact. EARS: Hearing grossly intact. PSYCHIATRIC: No anxiety or evidence of depression. Full physical exam deferred. Please see exam below from consult 08/16/2021--here for results of bone marrow biopsy only NOSE / MOUTH / THROAT: Nose, mouth, tongue and oropharynx are benign in appearance. No signs of inflammation. NECK / THYROID: Neck is supple. Thyroid is symmetrical, without thyromegaly, masses or palpable nodules. LYMPHATIC: No palpable cervical, supraclavicular, axillary, or inguinal adenopathy. RESPIRATORY: Normal to inspection. Lungs distant breath sounds. No audible wheezing, rales, rhonchi or rubs. Normal effort. CARDIOVASCULAR: Regular rate and rhythm. No murmurs, gallops, or rubs. VASCULAR: Carotid, radial, femoral and pedal pulses present bilaterally. No bruits. ABDOMEN: Bowel sounds normoactive. Soft, nontender and non-distended. No hepatosplenomegaly. No masses. GENITOURINARY: No CVA tenderness. No suprapubic fullness or tenderness. No groinadenopathy. No evidence of hernias. INTEGUMENTARY: The skin is unremarkable. No rashes. No suspicious lesions BACK / SPINE: The back is nontender. MUSCULOSKELETAL: Normal musculature, no joint deformities or abnormalities, normal range of motion for all four extremities. EXTREMITIES: No edema, cyanosis or clubbing. No Cricket sign. NEUROLOGICAL: Alert and oriented. Cranial nerves intact. No gross motor deficits. Positive bilateral numbness distal to knees. - ECOG Performance Status ECOG Score: 2 Results - Labs Labs: 09/26/2021: White blood cells 11,, hematocrit 00, hemoglobin 11.4 35.3, MCV 88, platelet count 06/12/1999 10/11/2021: Sodium 139, potassium 4.7, BUN 18, creatinine 1.57, EGFR 33, glucose 268 10/23/2021: Serum iron 64, iron saturation 15%, ferritin 76.6 08/16/2021: Free kappa 73.6 (high), free lambda 29.2 (high), free kappa/lambda light chain ratio 2.52. 07/02/2021: IgG monoclonal protein with kappa light chain specificity - Impressions METASTATIC BONE SURVEY - 20 images COMPARISON: None CLINICAL DATA: MGUS. Lower extremity neuropathy AP and lateral views of the skull and spine as well as AP views of the ribs, pelvis and all 4 extremities were obtained. Evaluation is slightly limited by large body habitus. There is osteopenia. No osteolytic bone lesions are identified to suggest myeloma. No acute fractures or dislocation are seen. There is potential slight dextroscoliotic curvature. There is endplate spurring at the spine. There is no prominent degenerative change involving major joints. There is minor scarring or atelectasis at the left lung. XR/XR bone survey IMPRESSION: NO SUSPECTED MYELOMATOUS LESIONS. 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 She has mild anemia with most recent hemoglobin 11.6, elevated erythrocyte sedimentation rate of 65, most recent renal function panel showed a creatinine of 1.64 correlating to EGFR, [id number]-[id number]-Kcgspluh 32. This has not significantly changed over the last year but is lower than prior labs from [id number]. Most recent calcium within normal limits and we do not have recent imaging other than her MRIs which have not shown any bony lytic lesions. The patient does report diffuse pain. She has urinary tract infections intermittently but no other history of chronic infections. She has no personal history of malignancy, chemotherapy, or radiation therapy. 09/11/2021: Patient returns to review urine protein electrophoresis which showed no M spike, urine immunofixation which showed no monoclonality, and kappa/lambdalight chain analysis with mild elevation of ratio. In addition she was noted tohave elevated beta-2 microglobulin, although this could also be reflective of her stage III chronic kidney disease. Baseline Skeletal survey showed no evidence of bony lytic lesions or osteopenia. She was given the option of surveillance labs every 3 months versus scheduling bone marrow aspiration and biopsy to determine if she has a plasma cell dyscrasia and/or presence of amyloid protein contributing to her neuropathy. She wishes to proceed with bone marrow biopsy. Due to her large body habitus wewill set up bone marrow biopsy with interventional radiology to ensure proper specimen sampling. 10/24/2021: Bone marrow biopsy performed 09/26/2021 in interventional radiology shows no evidence of plasma cell neoplasm or amyloidosis. She does have absent iron stores and I advised adding ferrous sulfate 1 tablet daily. If she has intolerance of ferrous sulfate or failure to respond, we will arrange parenteraliron therapy. Next follow-up with me will be in 6 months with serum protein electrophoresis, quantitative immunoglobulins, and kappa/lambda light chain analysis. We will also repeat CBC, CMP, and Serum iron profile/ferritin level 10. Moderate complexity visit of 35 minutes. (2) Iron deficiency anemia Qualifiers: Iron deficiency anemia type: unspecified iron deficiency Qualified Code(s):D50.9 - Iron deficiency anemia, unspecified Absent iron stores on bone marrow biopsy with iron saturation low at 15%. Givenher chronic kidney disease and neuropathy we will add ferrous sulfate 1 tablet daily. If she has poor tolerance of oral iron we can consider parenteral iron due to her persistent fatigue. Reassess iron stores in 6 months. (3) CKD (chronic kidney disease) stage 3, GFR 30-59 ml/min Qualifiers: Chronic kidney disease stage 3 subtype: stage 3b (GFR 30-44) Qualified Code(s): N18.32 - Chronic kidney disease, stage 3b Chronic stable CKD stage 3b. Elevated beta-2 microglobulin likely due to her chronic kidney disease. (4) COPD (chronic obstructive pulmonary disease) Qualifiers: COPD type: emphysema Emphysema type: unspecified Qualified Code(s): J43.9- Emphysema, unspecified Chronic O2 dependence. No recent clinical change. (5) Diabetes Qualifiers: Diabetes mellitus type: type 2 Diabetes mellitus complication status: with neurologic complications Diabetes mellitus complication detail: with polyneuropathy (6) Degenerative joint disease of cervical and lumbar spine (7) Morbid obesity (8) Bipolar disorder with depression - Time with Patient Time Spent with Patient (Follow Up Visit): 35 minutes - Moderate complexity visit to review bone marrow biopsy and recent labs, follow-up frequency, iron deficiency anemia Coordination of Care & Counseling Time: Greater than 50% of time spent with patient was for coordination of care (as documented) and [id number] counseling of patient and/or family. Dictated By: Roxane Bills MD DD/ [id number] Signed By: <Electronically signed by MD Roxane Bills> 10/24/21 1426 [facility] Work Phone: 1(207) 879-313107-11-2022 Evaluation note* Encounter Date Diagnosis Assessment Notes Treatment Notes Treatment Clinical Notes Oct, Type 2 diabetes mellitus with diabetic chronic kidney disease (ICD-10 - E11.22) A1c is up slightly today to 7.2%. Patient checks her sugars periodically. Denies any low readings. For now we will continue her current regimen. Do encourage her to begin checking her sugars more frequently. Repeat A1c in 3 months. Oct, Essential hypertension (ICD-10 - I10) Blood pressure is again elevated. I do recheck in the office and get similar reading. She is taking Lasix, amlodipine and carvedilol twice a day. Discussed addition of a another agent. She states she has taken lisinopril in the past but it caused hyperkalemia. We will go ahead and start her on clonidine 0.1 mg twice a day. She may follow-up in approximately [address] Tyson for recheck. Additionally lab work as shown slow decrease in kidney function. Given that she is on Lasix I would like to repeat the chemistry panel at this time. [facility] Other 06-23-2022 Evaluation note* Encounter Date Diagnosis Assessment Notes Treatment Notes Treatment Clinical Notes Sep, Anemia NOS (ICD9-CM - 285.9) [facility] Other 06-09-2022 Evaluation note* Encounter Date Diagnosis Assessment Notes Treatment Notes Treatment Clinical Notes Sep, Type 2 diabetes mellitus with diabetic chronic kidney disease (ICD-10 - E11.22) [facility] Other 06-01-2022 Progress note Author Roxane Bills [facility] September 11, 2021 2:34pm Note Date/Time September 11, 2021 10:47 am [facility] [place] [address] Hem/Onc Follow Up Note - OP Signed Patient: Kelsea Turcios MR#: [id number] : 1960 Acct:[id number] Age/Sex: 60 / F Type: REG RCR Copies to: DO Giovanni Deleon D.O.~ Subjective Date/Time of Service: Date of Service: 09/11/2021 Time of Service: 10:45 Chief Complaint: Patient is here today for 4 week follow up visit for MGUS and go over labs and bone osseous survey. No new concerns HPI: 09/11/2021: I reviewed the results of patient's labs from consult about 4 weeks ago. She did not have any monoclonality noted on urinalysis but does have a mildly elevated kappa/lambda light chain ratio. The patient was given the option of surveillance with every 3-month monoclonal gammopathy labs versus bonemarrow biopsy to determine if she has presence of amyloidosis or other plasma cell dyscrasia. Patient notes that she has been suffering with polyneuropathy and would like to proceed with bone marrow biopsy for further evaluation. Due to her BMI 48, I recommended interventional radiology to perform image guided bone marrow aspiration and biopsy on her and we will review the results approximately 3 weeks after procedure. She is in agreement with this plan over this moderate complexity visit over 25 minutes for review of laboratories and coordination of her image guided bone marrow biopsy. PREVIOUS HISTORY from original consult 08/16/2021: This is a 60-year-old lady who has been followed by neurology for peripheral neuropathy which has been deemed polyneuropathy of axonal loss and type and moderate in severity. She had a prior EMG in 2016 but most recent EMG of bilateral lower extremities was significantly worse. She had an MRI of the lumbar spine without contrast on 09/14/2020 showing a lipoma of her from terminaleand mild lower lumbar discovertebral degenerative changes including facet arthropathy but no central stenosis. She also had a MRI of the cervical spine 09/22/2017 showing mild disc space narrowing at C3-C4 and C5-C6 that was otherwise unremarkable. Bilateral upper extremity EMG showed a remote C8 radiculopathy on the right which was moderate. She had work-up with serum protein electrophoresis on 07/02/2021 showing a monoclonal spike of 0.4 g/dL (no prior labs for comparison). Serum immunofixation showed a monoclonal protein with kappa light chain specificity however quantitative immunoglobulin showed anelevation of IgA at 508 with normal IgG 1134 and IgM 79. She had an antineutrophil antibody screen that was negative and rheumatoid factor was less than 10. She reports chronic fatigue, progressive increase in weight and she is noted to have a BMI of 49. She has mild anemia with most recent hemoglobin 11.6, elevated erythrocyte sedimentation rate of 65, most recent renal function panel showed a creatinine of 1.64 correlating to EGFR, [id number] 32. This has not significantly changed over the last year but is lower than prior labs from 2017- 2020. Most recent calcium within normal limits and we do not have recent imaging other than her MRIs which have not shown any bony lytic lesions. The patient does report diffuse pain. She has urinary tract infections intermittently but no other history of chronic infections. She has no personal history of malignancy, chemotherapy, or radiation therapy. DIAGNOSIS: 1. Monoclonal gammopathy of undetermined significance, possibly associated neuropathy 2. Longstanding diabetes mellitus over the last 8 years 3. Chronic peripheral neuropathy that is recently been worsening 4. 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 COPD with oxygen dependence past 8 years ROS Details: All systems reviewed & no additional complaints except as documented Subjective/ROS - Narrative: No change in review of systems from original consult 08/16/2021 CONSTITUTIONAL: Positive for chronic fatigue increasing over the past year, negative for fever or night sweats. HEAD AND NECK: Negative for changes in hearing and vision. Negative for mouth ulcers, nasal congestion and nasal drainage. PULMONARY: Negative for chest pain, stable chronic cough and dyspnea. Chronic oxygen dependence due to COPD. CARDIOVASCULAR: Negative for claudication and irregular heartbeat/palpitations. GASTROINTESTINAL: Negative for abdominal pain, constipation, decreased appetite,diarrhea, nausea, and vomiting. GENITOURINARY: Negative for dysuria and hematuria. ENDOCRINE: Negative for cold intolerance and heat intolerance. Chronic diabetes, insulin requiring 8 years. CENTRAL NERVOUS SYSTEM: Positive for gait disturbance secondary to chronic neuropathy. No headache and radiculopathy left lower extremity/right upper extremity. PSYCHIATRIC: Negative for anxiety--positive for bipolar depression controlled onmedications. DERMATOLOGICAL: Negative for pruritus and rash. Negative for suspicious skin lesions. MUSCULOSKELETAL: Positive for cervical and lumbar back pain with radiculopathy. No other bone/joint symptoms. HEMATOLOGICAL: Negative for bleeding and easy bruising. Negative for history of transfusion or thromboembolic disease ALLERGY: Negative for environmental allergies and food allergies. PMF - History Attestation statement: The following information was validated with the patient. Source: Old Records Reviewed - Medical History Medical History: Medical History (Last Reviewed 09/11/21 @ 14:27 by Roxane Bills MD) Abdominal pain Anxiety Asthma COPD (chronic obstructive pulmonary disease) Diabetes Diarrhea GERD (gastroesophageal reflux disease) Hypertension Nausea On home oxygen therapy 3-5 L nasal cannula Sleep apnea Spinal stenosis Wound of right leg - Surgical History Surgical History: Surgical History (Last Reviewed 09/11/21 @ 14:28 by Roxane Bills MD) H/O foot surgery bilateral H/O: section x 4 History of hysterectomy Hx of cholecystectomy - Family History Family History: Family History (Last Reviewed 09/11/21 @ 14:28 by Roxane Bills MD) Son Hypertension Sister Hypertension Colon polyp Grandparent Breast cancer Grandparent Leukemia Brother Diabetes - Social History Smoking Status: Never smoker Substance Use Type: None Social History Comments: 1 son lives with her and spouse, he is 30 y.o. Home Medications & Allergies Allergies codeine Allergy (Verified 09/11/21 10:40) Rash honey Allergy (Verified 09/11/21 10:40) Hives morphine Allergy (Verified 09/11/21 10:40) Gastrointestinal Upset Home Medications cholecalciferol (vitamin D3) 50 mcg (2,000 unit) capsule 2 cap PO DAILY 12/16/16[History Confirmed 09/11/21] gabapentin 800 mg tablet 1 tab PO TID 04/17/17 [History Confirmed 09/11/21] montelukast 10 mg tablet 1 tab PO QHS 10/05/17 [History Confirmed 09/11/21] amlodipine 5 mg tablet 10 mg PO DAILY 01/24/18 [History Confirmed 09/11/21] brexpiprazole 2 mg tablet (Rexulti) 2 mg PO DAILY 01/24/18 [History Confirmed 09/11/21] budesonide-formoterol HFA 160 mcg-4.5 mcg/actuation aerosol inhaler (Symbicort) 2 puff INHALATION BID 01/24/18 [History Confirmed 09/11/21] carvedilol 6.25 mg tablet 25 mg PO BID 01/24/18 [History Confirmed 09/11/21] hydrocodone 5 mg-acetaminophen 325 mg tablet 5 mg PO BID 01/24/18 [History Confirmed 09/11/21] magnesium oxide 400 mg PO DAILY 01/24/18 [History Confirmed 09/11/21] omeprazole 40 mg capsule,delayed release 40 mg PO DAILY 01/24/18 [History Confirmed 09/11/21] oxybutynin chloride 10 mg tablet,extended release 24 hr 10 mg PO DAILY 01/24/18 [History Confirmed 09/11/21] albuterol sulfate 90 mcg/actuation aerosol inhaler (ProAir HFA) 1 puff INHALATION Q4H 07/29/21 [History Confirmed 09/11/21] amitriptyline 10 mg tablet 10 mg PO DAILY 07/29/21 [History Confirmed 09/11/21] clobetasol 0.05 % topical ointment 1 applic TOPICAL DAILY 7 Days #30 g 07/29/21 [Rx Confirmed 09/11/21] colestipol 1 gram tablet 2 g PO DAILY 07/29/21 [History Confirmed 09/11/21] dicyclomine 20 mg tablet 20 mg PO QID 07/29/21 [History Confirmed 09/11/21] ferrous sulfate 325 mg (65 mg iron) tablet (iron) 325 mg PO DAILY 07/29/21 [History Confirmed 09/11/21] fluticasone propionate 50 mcg/actuation nasal spray,suspension 1 spray INTRANASAL DAILY 07/29/21 [History Confirmed 09/11/21] hydroxyzine HCl 10 mg tablet 10 mg PO TID 07/29/21 [History Confirmed 09/11/21] ipratropium 0.5 mg-albuterol 3 mg (2.5 mg base)/3 mL nebulization soln 3 ml INHALATION Q6H 07/29/21 [History Confirmed 09/11/21] levomilnacipran 120 mg capsule,24 hr,extended release (Fetzima) 120 mg PO DAILY 07/29/21 [History Confirmed 09/11/21] levothyroxine 75 mcg tablet 50 mcg PO DAILY 07/29/21 [History Confirmed 09/11/21] metformin 850 mg tablet 850 mg PO DAILY 07/29/21 [History Confirmed 09/11/21] mirtazapine 30 mg tablet 30 mg PO QHS 07/29/21 [History Confirmed 09/11/21] sucralfate 1 gram tablet 1 g PO BID 07/29/21 [History Confirmed 09/11/21] tizanidine 4 mg tablet (Zanaflex) 4 mg PO BID 07/29/21 [History Confirmed 09/11/21] zonisamide 50 mg capsule 50 mg PO BID 07/29/21 [History Confirmed 09/11/21] asenapine maleate 5 mg sublingual tablet (Saphris) 5 mg SUBLINGUAL QHS 08/16/21 [History Confirmed 09/11/21] celecoxib 200 mg capsule 200 mg PO BID 08/16/21 [History Confirmed 09/11/21] cyclobenzaprine 10 mg tablet 10 mg PO HS 08/16/21 [History Confirmed 09/11/21] duloxetine 60 mg capsule,delayed release sprinkle 60 mg PO DAILY 08/16/21 [History Confirmed 09/11/21] furosemide 40 mg tablet (Lasix) 40 mg PO DAILY 08/16/21 [History Confirmed 09/11/21] gabapentin 100 mg capsule 100 mg PO TID 08/16/21 [History Confirmed 09/11/21] insulin glargine 100 unit/mL (3 mL) subcutaneous pen (Roland Gomez U-100 Insulin) 15 unit SUBCUT QAM 08/16/21 [History Confirmed 09/11/21] mirtazapine 30 mg tablet (Remeron) 30 mg PO DAILY 08/16/21 [History Confirmed 09/11/21] theophylline 80 mg/15 mL oral elixir 200 mg PO DAILY 08/16/21 [History Confirmed 09/11/21] Objective - Height/Weight Height/Weight: Height 5 ft Weight 112.037 kg - Vital Signs Vital Signs: 09/11/21 10:40 Temperature 97.7 F Pulse Rate [Left Brachial] 72 Respiratory Rate 16 Blood Pressure [Left Arm] 149/87 H 02 Sat by Pulse Oximetry 99 - Pain Back Pain Intensity: 6 Physical Exam Narrative: CONSTITUTIONAL: The patient is in no acute distress. HEAD / FACE: Normocephalic. EYES: Pupils are equal and reactive to light. Conjunctivae and lids are benign in appearance. Ocular movement intact. EARS: Hearing grossly intact. PSYCHIATRIC: No anxiety or evidence of depression. Full physical exam deferred. Please see exam below from consult 08/16/2021 NOSE / MOUTH / THROAT: Nose, mouth, tongue and oropharynx are benign in appearance. No signs of inflammation. NECK / THYROID: Neck is supple. Thyroid is symmetrical, without thyromegaly, masses or palpable nodules. LYMPHATIC: No palpable cervical, supraclavicular, axillary, or inguinal adenopathy. RESPIRATORY: Normal to inspection. Lungs distant breath sounds. No audible wheezing, rales, rhonchi or rubs. Normal effort. CARDIOVASCULAR: Regular rate and rhythm. No murmurs, gallops, or rubs. VASCULAR: Carotid, radial, femoral and pedal pulses present bilaterally. No bruits. ABDOMEN: Bowel sounds normoactive. Soft, nontender and non-distended. No hepatosplenomegaly. No masses. GENITOURINARY: No CVA tenderness. No suprapubic fullness or tenderness. No groinadenopathy. No evidence of hernias. INTEGUMENTARY: The skin is unremarkable. No rashes. No suspicious lesions BACK / SPINE: The back is nontender. MUSCULOSKELETAL: Normal musculature, no joint deformities or abnormalities, normal range of motion for all four extremities. EXTREMITIES: No edema, cyanosis or clubbing. No Cricket sign. NEUROLOGICAL: Alert and oriented. Cranial nerves intact. No gross motor deficits. Positive bilateral numbness distal to knees. - ECOG Performance Status ECOG Score: 2 Results - Labs Labs: 08/16/2021: Beta-2 microglobulin elevated to 4.9, urine protein electrophoresis with no M spike and MITCH with no monoclonality detected Free kappa elevated 73.6, free lambda elevated 29.2, free kappa/lambda light chain ratio 2.52 07/02/2021: WBC 9300, Hg 11.6, Hct 36.3, Platelets 245,000; ANC 5400; ESR 65 Na 137, K 4.1, BUN 28, Cr 1.68, TP 6.9, Alb 3.5 serum protein electrophoresis showing a monoclonal spike of 0.4 g/dL (no prior labs for comparison). Serum immunofixation showed a monoclonal protein with kappa light chain specificity however quantitative immunoglobulin showed an elevation of IgA at 508 with normal IgG 1134 and IgM 79. She had an antineutrophil antibody screen that was negative and rheumatoid factor was less than 10. - Impressions METASTATIC BONE SURVEY - 20 images COMPARISON: None CLINICAL DATA: MGUS. Lower extremity neuropathy AP and lateral views of the skull and spine as well as AP views of the ribs, pelvis and all 4 extremities were obtained. Evaluation is slightly limited by large body habitus. There is osteopenia. No osteolytic bone lesions are identified to suggest myeloma. No acute fractures or dislocation are seen. There is potential slight dextroscoliotic curvature. There is endplate spurringat the spine. There is no prominent degenerative change involving major joints. There is minor scarring or atelectasis at the left lung. XR/XR bone survey IMPRESSION: NO SUSPECTED MYELOMATOUS LESIONS. 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 She has mild anemia with most recent hemoglobin 11.6, elevated erythrocyte sedimentation rate of 65, most recent renal function panel showed a creatinine of 1.64 correlating to EGFR, [id number] 32. This has not significantly changed over the last year but is lower than prior labs from 2866-9896. Most recent calcium within normal limits and we do not have recent imaging other than her MRIs which have not shown any bony lytic lesions. The patient does report diffuse pain. She has urinary tract infections intermittently but no other history of chronic infections. She has no personal history of malignancy, chemotherapy, or radiation therapy. 09/11/2021: Patient returns to review urine protein electrophoresis which showed no M spike, urine immunofixation which showed no monoclonality, and kappa/lambdalight chain analysis with mild elevation of ratio. In addition she was noted tohave elevated beta-2 microglobulin, although this could also be reflective of her stage III chronic kidney disease. Baseline Skeletal survey showed no evidence of bony lytic lesions or osteopenia. She was given the option of surveillance labs every 3 months versus scheduling bone marrow aspiration and biopsy to determine if she has a plasma cell dyscrasia and/or presence of amyloid protein contributing to her neuropathy. She wishes to proceed with bone marrow biopsy. Due to her large body habitus wewill set up bone marrow biopsy with interventional radiology to ensure proper specimen sampling. The patient expressed understanding and will follow-up about3 weeks after her bone marrow biopsy to review results and potential further plan of care. Moderate complexity visit 25 minutes to review complex labs. (2) CKD (chronic kidney disease) stage 3, GFR 30-59 ml/min Qualifiers: Chronic kidney disease stage 3 subtype: stage 3b (GFR 30-44) Qualified Code(s): N18.32 - Chronic kidney disease, stage 3b Chronic stable CKD stage 3b. Elevated beta-2 microglobulin likely due to her chronic kidney disease. (3) COPD (chronic obstructive pulmonary disease) Qualifiers: COPD type: emphysema Emphysema type: unspecified Qualified Code(s): J43.9- Emphysema, unspecified Chronic O2 dependence. No recent clinical change. (4) Diabetes Qualifiers: Diabetes mellitus type: type 2 Diabetes mellitus complication status: with neurologic complications Diabetes mellitus complication detail: with polyneuropathy (5) Degenerative joint disease of cervical and lumbar spine (6) Morbid obesity (7) Bipolar disorder with depression - Time with Patient Time Spent with Patient (Follow Up Visit): 25 minutes Coordination of Care & Counseling Time: Greater than 50% of time spent with patient was for coordination of care (as documented) and [id number] counseling of patient and/or family. Dictated By: Roxane Bills MD DD/ [id number] Signed By: <Electronically signed by MD Roxane Bills> 09/11/21 1438 [facility] Work Phone: [phone] 498-942305-12-2022 Evaluation note* Encounter Date Diagnosis Assessment Notes Treatment Notes Treatment Clinical Notes August, Lumbar radiculopathy (ICD-10 - M54.16) 60 y/o female presents with complaints of low back pain with radiation down the posterior aspect of bilateral thighs to the calves. She also complains of lower extremity pain secondary to peripheral neuropathy. She states her pain has been present for many years, becoming gradually worse. She has tried physical therapy in the past which aggravated her pain. She denies any prior back surgery. She reports prior injections at [facility] with Dr. Groves. She feels pain can negatively impact her daily activities and sleeping pattern. Prior to examining the patient, I independently reviewed office notes from referring provider, Dr Tyler. Pertinent imaging was also reviewed and discussed in detail with the patient which shows disc degeneration of the lumbar spine causing narrowing of the spinal canal as well as an element of arthritis. History, physical examination and available images are consistent with lumbar radiculopathy, lumbar degenerative disc disease, lumbosacral spondylosis and sacroilitis. Anatomy of spine as well as different treatment options were discussed in detail with patient in regards to patients condition. I recommend that we proceed with a L4-5 lumbar epidural steroid injection under fluoroscopic guidance. Risks and benefits of procedure explained to patient; patient verbalizes understanding. In the meantime, I will order a dynamic x-ray of the lumbar spine to further evaluate her pain. August, Lumbar degenerative disc disease (ICD-10 - M51.36) Continue with current treatment plan. August, Lumbosacral spondylosis without myelopathy (ICD-10 - M47.817) We can consider proceeding with a lumbar MBB in the future, followed by RFA if applicable. August, Sacroiliitis (ICD-10 - M46.1) If her pain persists or worsens, we can consider SI joint injections in the future. August, Other chronic pain (ICD-10 - G89.29) Follow up after procedure. August, Other Medical deci nigel making shows a new problem to me with further workup planned or suggested with the potential for extensive treatment options that were considered with the most applicable given this patient's situation as noted above. Treatment options considered include a combination of physical therapy approaches, pharmacologic management, and interventional procedures. Those most applicable to the patient were discussed at this time. Risk of complications and/or morbidity and mortality is high given that acute and chronic pain poses a threat to life and bodily function if undertreated, poorly treated or with failure to maintain adequate treatment and timely followup. Given the serious and fluctuating nature of pain with extensive consideration for whenever pain changes, there always remains the possibility of prolonged functional impairment requiring constant patient reassessment and high-level medical decision making. The amount and complexity of data reviewed is high given that patient labs, radiology reports, and other test were obtained, reviewed and summarized as applicable from the physician portal and/or outside medical records. Pertinent positive and negative findings were considered in medical decision-making. [facility] Other 05-07-2022 Consult note Author Roxane Bills [facility] August 16, 2021 10:27pm Note Date/Time August 16, 2021 10:19a [facility] [place] [address] Hem/Onc Consult Note - OP Signed Patient: Kelsea Turcios MR#: [id number] : 1960 Acct:[id number] Age/Sex: 60 / F Type: REG RCR Copies to: DO Giovanni Deleon D.O.~ HPI Date/Time of Service: Date of Service: 08/16/2021 Time of Service: 10:19 Referring Provider/PCP: Referring Provider: Brenden Groves DO PCP: Giovanni Tyler DO - History of Present Illness Reason for Consultation: Patient reports recent progressive peripheral neuropathy, longstanding diabetes mellitus, obesity. Asked to evaluate for monoclonal gammopathy identified on work-up. Chief Complaint: Patient is here today for a referral from Dr Mohan Groves DO for abnormal SPEP and immunofixation of setting of polyneuropathy and monoclonal gammopathy HPI: Dear Dr. Groves, I had the great pleasure of seeing your patient in consultation. Thank you verymuch for your referral. As you know this is a 60-year-old lady who has been followed by neurology for peripheral neuropathy which has been deemed polyneuropathy of axonal loss and type and moderate in severity. She had a prior EMG in 2016 but most recent EMG of bilateral lower extremities was significantly worse. She had an MRI of the lumbar spine without contrast on 09/14/2020 showing a lipoma of her from terminale and mild lower lumbar discovertebral degenerative changes including facet arthropathy but no central stenosis. She also had a MRI of the cervical spine 09/22/2017 showing mild disc space narrowing at C3-C4 and C5-C6 that was otherwise unremarkable. Bilateral upper extremity EMG showed a remote C8 radiculopathy on the right which was moderate. She had work-up with serum protein electrophoresis on 07/02/2021 showing a monoclonal spike of 0.4 g/dL (no prior labs for comparison). Serum immunofixation showed a monoclonal protein with kappa light chain specificity however quantitative immunoglobulin showed an elevation of IgA at 508 with normal IgG 1134 and IgM 79. She had an antineutrophil antibody screen that was negative and rheumatoid factor was less than 10. She reports chronic fatigue, progressive increase in weight and she is noted to have a BMI of 49. She has mild anemia with most recent hemoglobin 11.6, elevated erythrocyte sedimentation rate of 65, most recent renal function panel showed a creatinine of 1.64 correlating to EGFR, [id number]-[id number] 32. This has not significantly changed over the last year but is lower than prior labs from 2017- 2020. Most recent calcium within normal limits and we do not have recent imaging other than her MRIs which have not shown any bony lytic lesions. The patient does report diffuse pain. She has urinary tract infections intermittently but no other history of chronic infections. She has no personal history of malignancy, chemotherapy, or radiation therapy. [facility] - History Attestation statement: The following information was validated with the patient. Source: Old Records Reviewed - Medical History Medical History: Medical History (Last Reviewed 08/16/21 @ 14:00 by Roxane Bills MD) Abdominal pain Anxiety Asthma COPD (chronic obstructive pulmonary disease) Diabetes Diarrhea GERD (gastroesophageal reflux disease) Hypertension Nausea On home oxygen therapy 3-5 L nasal cannula Sleep apnea Spinal stenosis Wound of right leg - Surgical History Surgical History: Surgical History (Last Reviewed 08/16/21 @ 14:00 by Roxane Bills MD) H/O foot surgery bilateral H/O: section x 4 History of hysterectomy Hx of cholecystectomy - Family History Family History: Family History (Last Reviewed 08/16/21 @ 14:00 by Roxane Bills MD) Son Hypertension Sister Hypertension Colon polyp Grandparent Breast cancer Grandparent Leukemia Brother Diabetes - Social History Smoking Status: Never smoker Substance Use Type: None Social History Comments: 1 son lives with her and spouse, he is 30 y.o. Home Medications & Allergies Allergies codeine Allergy (Verified 08/16/21 10:07) Rash honey Allergy (Verified 08/16/21 10:07) Hives morphine Allergy (Verified 08/16/21 10:07) Gastrointestinal Upset Home Medications cholecalciferol (vitamin D3) 50 mcg (2,000 unit) capsule 2 cap PO DAILY 12/16/16[History Confirmed 08/16/21] gabapentin 800 mg tablet 1 tab PO TID 04/17/17 [History Confirmed 08/16/21] montelukast 10 mg tablet 1 tab PO QHS 10/05/17 [History Confirmed 08/16/21] amlodipine 5 mg tablet 10 mg PO DAILY 01/24/18 [History Confirmed 08/16/21] brexpiprazole 2 mg tablet (Rexulti) 2 mg PO DAILY 01/24/18 [History Confirmed 08/16/21] budesonide-formoterol HFA 160 mcg-4.5 mcg/actuation aerosol inhaler (Symbicort) 2 puff INHALATION BID 01/24/18 [History Confirmed 08/16/21] carvedilol 6.25 mg tablet 25 mg PO BID 01/24/18 [History Confirmed 08/16/21] hydrocodone 5 mg-acetaminophen 325 mg tablet 5 mg PO BID 01/24/18 [History Confirmed 08/16/21] magnesium oxide 400 mg PO DAILY 01/24/18 [History Confirmed 08/16/21] omeprazole 40 mg capsule,delayed release 40 mg PO DAILY 01/24/18 [History Confirmed 08/16/21] oxybutynin chloride 10 mg tablet,extended release 24 hr 10 mg PO DAILY 01/24/18 [History Confirmed 08/16/21] albuterol sulfate 90 mcg/actuation aerosol inhaler (ProAir HFA) 1 puff INHALATION Q4H 07/29/21 [History Confirmed 08/16/21] amitriptyline 10 mg tablet 10 mg PO DAILY 07/29/21 [History Confirmed 08/16/21] clobetasol 0.05 % topical ointment 1 applic TOPICAL DAILY 7 Days #30 g 07/29/21 [Rx Confirmed 08/16/21] colestipol 1 gram tablet 2 g PO DAILY 07/29/21 [History Confirmed 08/16/21] dicyclomine 20 mg tablet 20 mg PO QID 07/29/21 [History Confirmed 08/16/21] ferrous sulfate 325 mg (65 mg iron) tablet (iron) 325 mg PO DAILY 07/29/21 [History Confirmed 08/16/21] fluticasone propionate 50 mcg/actuation nasal spray,suspension 1 spray INTRANASAL DAILY 07/29/21 [History Confirmed 08/16/21] hydroxyzine HCl 10 mg tablet 10 mg PO TID 07/29/21 [History Confirmed 08/16/21] ipratropium 0.5 mg-albuterol 3 mg (2.5 mg base)/3 mL nebulization soln 3 ml INHALATION Q6H 07/29/21 [History Confirmed 08/16/21] levomilnacipran 120 mg capsule,24 hr,extended release (Fetzima) 120 mg PO DAILY 07/29/21 [History Confirmed 08/16/21] levothyroxine 75 mcg tablet 50 mcg PO DAILY 07/29/21 [History Confirmed 08/16/21] metformin 850 mg tablet 850 mg PO DAILY 07/29/21 [History Confirmed 08/16/21] mirtazapine 30 mg tablet 30 mg PO QHS 07/29/21 [History Confirmed 08/16/21] sucralfate 1 gram tablet 1 g PO BID 07/29/21 [History Confirmed 08/16/21] tizanidine 4 mg tablet (Zanaflex) 4 mg PO BID 07/29/21 [History Confirmed 08/16/21] zonisamide 50 mg capsule 50 mg PO BID 07/29/21 [History Confirmed 08/16/21] asenapine maleate 5 mg sublingual tablet (Saphris) 5 mg SUBLINGUAL QHS 08/16/21 [History Confirmed 08/16/21] celecoxib 200 mg capsule 200 mg PO BID 08/16/21 [History Confirmed 08/16/21] cyclobenzaprine 10 mg tablet 10 mg PO HS 08/16/21 [History Confirmed 08/16/21] duloxetine 60 mg capsule,delayed release sprinkle 60 mg PO DAILY 08/16/21 [History Confirmed 08/16/21] furosemide 40 mg tablet (Lasix) 40 mg PO DAILY 08/16/21 [History Confirmed 08/16/21] gabapentin 100 mg capsule 100 mg PO TID 08/16/21 [History Confirmed 08/16/21] insulin glargine 100 unit/mL (3 mL) subcutaneous pen (Basaglar KwikPen U-100 Insulin) 15 unit SUBCUT QAM 08/16/21 [History Confirmed 08/16/21] mirtazapine 30 mg tablet (Remeron) 30 mg PO DAILY 08/16/21 [History Confirmed 08/16/21] theophylline 80 mg/15 mL oral elixir 200 mg PO DAILY 08/16/21 [History Confirmed 08/16/21] Subjective Data - Diagnosis DIAGNOSIS: 1. Monoclonal gammopathy of undetermined significance, possibly associated neuropathy 2. Longstanding diabetes mellitus over the last 8 years 3. Chronic peripheral neuropathy that is recently been worsening 4. 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 COPD with oxygen dependence past 8 years Subjective/ROS - Narrative: CONSTITUTIONAL: Positive for chronic fatigue increasing over the past year, negative for fever or night sweats. HEAD AND NECK: Negative for changes in hearing and vision. Negative for mouth ulcers, nasal congestion and nasal drainage. PULMONARY: Negative for chest pain, stable chronic cough and dyspnea. Chronic oxygen dependence due to COPD. CARDIOVASCULAR: Negative for claudication and irregular heartbeat/palpitations. GASTROINTESTINAL: Negative for abdominal pain, constipation, decreased appetite,diarrhea, nausea, and vomiting. GENITOURINARY: Negative for dysuria and hematuria. ENDOCRINE: Negative for cold intolerance and heat intolerance. Chronic diabetes, insulin requiring 8 years. CENTRAL NERVOUS SYSTEM: Positive for gait disturbance secondary to chronic neuropathy. No headache and radiculopathy left lower extremity/right upper extremity. PSYCHIATRIC: Negative for anxiety--positive for bipolar depression controlled onmedications. DERMATOLOGICAL: Negative for pruritus and rash. Negative for suspicious skin lesions. MUSCULOSKELETAL: Positive for cervical and lumbar back pain with radiculopathy. No other bone/joint symptoms. HEMATOLOGICAL: Negative for bleeding and easy bruising. Negative for history of transfusion or thromboembolic disease ALLERGY: Negative for environmental allergies and food allergies. ROS Details: All systems reviewed & no additional complaints except as documented Objective - Height/Weight Height/Weight: Height 5 ft Weight 113.852 kg - Vital Signs Vital Signs: 08/16/21 10:12 Temperature 97.1 F L Pulse Rate [Left Brachial] 82 Respiratory Rate 16 Blood Pressure [Left Arm] 134/72 02 Sat by Pulse Oximetry 99 - Pain Back Pain Intensity: 6 Physical Exam Narrative: CONSTITUTIONAL: The patient is in no acute distress. HEAD / FACE: Normocephalic. EYES: Pupils are equal and reactive to light. Conjunctivae and lids are benign in appearance. Ocular movement intact. EARS: Hearing grossly intact. NOSE / MOUTH / THROAT: Nose, mouth, tongue and oropharynx are benign in appearance. No signs of inflammation. NECK / THYROID: Neck is supple. Thyroid is symmetrical, without thyromegaly, masses or palpable nodules. LYMPHATIC: No palpable cervical, supraclavicular, axillary, or inguinal adenopathy. RESPIRATORY: Normal to inspection. Lungs distant breath sounds. No audible wheezing, rales, rhonchi or rubs. Normal effort. CARDIOVASCULAR: Regular rate and rhythm. No murmurs, gallops, or rubs. VASCULAR: Carotid, radial, femoral and pedal pulses present bilaterally. No bruits. ABDOMEN: Bowel sounds normoactive. Soft, nontender and non-distended. No hepatosplenomegaly. No masses. GENITOURINARY: No CVA tenderness. No suprapubic fullness or tenderness. No groinadenopathy. No evidence of hernias. INTEGUMENTARY: The skin is unremarkable. No rashes. No suspicious lesions BACK / SPINE: The back is nontender. MUSCULOSKELETAL: Normal musculature, no joint deformities or abnormalities, normal range of motion for all four extremities. EXTREMITIES: No edema, cyanosis or clubbing. No Cricket sign. NEUROLOGICAL: Alert and oriented. Cranial nerves intact. No gross motor deficits. Positive bilateral numbness distal to knees. PSYCHIATRIC: No anxiety or evidence of depression. - ECOG Performance Status ECOG Score: 2 Results - Labs Labs: 07/02/2021: WBC 9300, Hg 11.6, Hct 36.3, Platelets 245,000; ANC 5400; ESR 65 Na 137, K 4.1, BUN 28, Cr 1.68, TP 6.9, Alb 3.5 serum protein electrophoresis showing a monoclonal spike of 0.4 g/dL (no prior labs for comparison). Serum immunofixation showed a monoclonal protein with kappa light chain specificity however quantitative immunoglobulin showed an elevation of IgA at 508 with normal IgG 1134 and IgM 79. She had an antineutrophil antibody screen that was negative and rheumatoid factor was less than 10. - Impressions PA AND LATERAL CHEST: CLINICAL HISTORY: Home oxygen COMPARISON: Chest 09/26/2020 FINDINGS: Heart appears normal in size. Scattered areas of linear atelectasis. No focal consolidation, pneumothorax, pleural effusion or free air. XR/XR chest 2V* IMPRESSION: SCATTERED AREAS OF LINEAR ATELECTASIS. NO FOCAL CONSOLIDATION IS SEEN TO SUGGEST PNEUMONIA. 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 She has mild anemia with most recent hemoglobin 11.6, elevated erythrocyte sedimentation rate of 65, most recent renal function panel showed a creatinine of 1.64 correlating to EGFR, zii-Dqgavdi-Jipjmvan 32. This has not significantly changed over the last year but is lower than prior labs from 2478-7911. Most recent calcium within normal limits and we do not have recent imaging other than her MRIs which have not shown any bony lytic lesions. The patient does report diffuse pain. She has urinary tract infections intermittently but no other history of chronic infections. She has no personal history of malignancy, chemotherapy, or radiation therapy. I recommended further evaluation with urine protein electrophoresis, urine immunofixation, and kappa/lambda light chain analysis. In addition I am sendingbeta-2 microglobulin. She will follow-up these results in about 3 weeks and shemay benefit from bone marrow aspiration and biopsy to determine if she has a plasma cell dyscrasia and/or presence of amyloid protein contributing to her neuropathy. Skeletal survey will be performed for baseline to determine if she has any bony lytic lesions or osteopenia. Due to her large body habitus we willlikely set up any bone marrow biopsy with interventional radiology to ensure proper specimen sampling. The patient expressed understanding and will follow-up in about 3 weeks to review results and potential further plan of care. (2) CKD (chronic kidney disease) stage 3, GFR 30-59 ml/min Qualifiers: Chronic kidney disease stage 3 subtype: stage 3b (GFR 30-44) Qualified Code(s): N18.32 - Chronic kidney disease, stage 3b Chronic stable CKD stage 3b. (3) COPD (chronic obstructive pulmonary disease) Qualifiers: COPD type: emphysema Emphysema type: unspecified Qualified Code(s): J43.9- Emphysema, unspecified Chronic O2 dependence. No recent clinical change. (4) Diabetes Qualifiers: Diabetes mellitus type: type 2 Diabetes mellitus complication status: with neurologic complications Diabetes mellitus complication detail: with polyneuropathy (5) Degenerative joint disease of cervical and lumbar spine (6) Morbid obesity (7) Bipolar disorder with depression - Time with Patient Total Time Spent with Patient (Consult): 60 mins or more - Moderate complexity consult over 60 minutes for history, physical, outside records review, multiple comorbidities. Coordination of Care & Counseling Time: Greater than 50% of time spent with patient was for coordination of care (as documented) and qljz-[id number] counseling of patient and/or family. Dictated By: Roxane Bills MD DD/ [id number] Signed By: <Electronically signed by MD Roxane Bills> 08/16/21 4026 [facility] Work Phone: 1(808) 866-227304-27-2022 Evaluation note* Encounter Date Diagnosis Assessment Notes Treatment Notes Treatment Clinical Notes Jul, Low back pain, unspecified (ICD-10 - M54.50) Patient would like to discuss a referral to pain management. She has a long history of low back pain and reported sciatic symptoms. She has been under the care of neurology, Dr. Groves for this. Patient reports that she has been receiving injections of the lumbar spine with varying results. I have not received records from Dr. Groves's office and do not know the details of the procedures but will be requesting records. Patient states that the injections seem to be providing less and shorter relief over time. Patient would like to transition care to pain management to see if there are any additional options. Of note the patient did have an MRI at [facility] about 1 year ago. This showed lipoma of the filum terminale, mild facet arthropathy, no significant central canal stenosis although foraminal impingement at L4 and L5 and lumbosacral junction.I have cautiously started Cymbalta due to her psychiatric regimen. Is unclear if she is having any benefit from this. We did recently increase the dose and will check up. If not providing any benefit will wean her off of it. Patient was previously being treated with Percocet multiple times a day from the [facility]. I have gradually weaned her dose down and I explained her that my plan is to continue to wean the dose down as I do not typically treat chronic pain with opiates. She has been cooperative with this. She may get opinion from her neurologist or when she establishes with pain management. Jul, Other chronic pain (ICD-10 - G89.29) [facility] Other 04-27-2022 Evaluation note* Encounter Date Diagnosis Assessment Notes Treatment Notes Treatment Clinical Notes Jul, Acquired lymphedema of lower extremity (ICD-10 - I89.0) Jul, Type 2 diabetes mellitus with diabetic chronic kidney disease (ICD-10 - E11.22) [facility] Other 04-11-2022 Evaluation note* Encounter Date Diagnosis Assessment Notes Treatment Notes Treatment Clinical Notes Jul, Varicose veins of unspecified lower extremity with ulcer of unspecified site (ICD-10 - I83.009) Jul, Non-pressure chronic ulcer of unspecified part of unspecified lower leg with unspecified severity (ICD-10 - L97.909) Patient with 6 to 12-month history of nonhealing ulceration on the right anterior distal lower extremity. Patient was seen by vascular surgery and was thought to be secondary to chronic peripheral edema. Have adjusted her dose of Lasix and had some improvement in her edema although the ulceration does not seem to be improving. We have discussed conservative measures including keeping legs elevated and compression stockings. Patient has not been wearing compression stockings. I discussed sodium restriction and encouraged her to check all the labels and try to keep her sodium less than 2 g/day. She did have a similar lesion on her left distal lower extremity that has healed. Patient is using a barrier cream and keeping the area moist. At this point we will go ahead and refer to wound care for further management. Jul, Stage 3b chronic kidney disease (ICD-10 - N18.32) Patient with history of CKD secondary to diabetes mellitus. We did recheck kidney function after increasing dose of Lasix. There was a slight bump in creatinine but overall remains relatively stable. We will probably go ahead and recheck it in 3 months. [facility] Other 03-15-2022 Evaluation note* Encounter Date Diagnosis Assessment Notes Treatment Notes Treatment Clinical Notes Jun, Acquired lymphedema of lower extremity (ICD-10 - I89.0) [facility] Other 03-10-2022 Evaluation note* Encounter Date Diagnosis Assessment Notes Treatment Notes Treatment Clinical Notes Jun, Diaphoresis (ICD-10 - R61) Patient reports a 5-week history of severe sweating in the evening as well as night sweats. Denies any other symptoms including fevers, chills, urinary symptoms, changes in respiratory status. Patient had normal colonoscopy about 1 year ago, mammogram about 1 year ago. She has had a total hysterectomy. She was never smoker. I will could not obtain lab work and chest x-ray. Jun, Peripheral edema (ICD-10 - R60.9) Patient's Lasix was increased from 20 to 40 mg daily. She did not notice a significant change and urination or the swelling. I will potentially increase the Lasix but will await chemistry panel results. He does have mild chronic nonhealing ulceration on the distal anterior right lower extremity. Mild erythema but no other significant evidence of infection. We will continue to monitor. We have discussed other options to improve the edema including weight loss, compression stockings, keeping legs elevated, and activity. [facility] Other 02-23-2022 Evaluation note* Encounter Date Diagnosis Assessment Notes Treatment Notes Treatment Clinical Notes May, Type 2 diabetes mellitus with diabetic chronic kidney disease (ICD-10 - E11.22) [employer] Other 02-10-2022 Evaluation note* Encounter Date Diagnosis Assessment Notes Treatment Notes Treatment Clinical Notes May, Acquired lymphedema of lower extremity (ICD-10 - I89.0) [employer] Other 02-10-2022 Evaluation note* Encounter Date Diagnosis Assessment Notes Treatment Notes Treatment Clinical Notes May, Type 2 diabetes mellitus with diabetic chronic kidney disease (ICD-10 - E11.22) Initially looked at the patient's A1c and started on Ozempic. Her A1c is actually only 6.7% we will continue her on her current regimen. May, Acquired lymphedema of lower extremity (ICD-10 - I89.0) Patient with history of lymphedema. Also has some chronic skin changes and some nonhealing ulceration on the right lower extremity. Patient has been seen by vascular surgery and does have some degree of venous insufficiency although recommendation was for routine follow-up and no occasion for intervention. I will go ahead and increase her Lasix cautiously. She does have history of CKD. We will be rechecking labs before her 1 month follow-up. May, Night sweats (ICD-10 - R61) Patient with a 1 week history of night sweats. I did explain that given the short duration this is likely of little concern but we will check a CBC. If it persists we will work-up further. Follow-up in 4 weeks. [employer] Other 02-02-2022 Evaluation note* Encounter Date Diagnosis Assessment Notes Treatment Notes Treatment Clinical Notes May, Unspecified vitamin D deficiency (ICD9-CM - 268.9) [employer] Other 01-19-2022 Evaluation note* Encounter Date Diagnosis Assessment Notes Treatment Notes Treatment Clinical Notes Apr, Venous insufficiency (chronic) (peripheral) (ICD-10 - I87.2) Apr, Non-pressure chronic ulcer of other part of left lower leg limited to breakdown of skin (ICD-10 - L97.821) Patient with chronic peripheral edema. Lesion on the right leg is most consistent with venous stasis ulcer, she has an established with vascular surgery and is scheduled to undergo venous Doppler study. I encouraged her to follow through with this. I also encouraged her to continue with conservative treatment of her edema. Instruct her to keep her legs elevated at all times when possible. We discussed compression stockings but the patient states that they are too uncomfortable. I advise she try wrapping her lower extremities. I recommend salt restriction also advise healthier diet as any weight loss would be beneficial. She has used lotions and creams but felt like they irritated her skin. I do recommend she try a gentle unscented cream or ointment such as CeraVe. She agrees to try these interventions and will follow-up following her next appointment with vascular surgery. [employer] Other 12-21-2021 Evaluation note* Encounter Date Diagnosis Assessment Notes Treatment Notes Treatment Clinical Notes Mar, Acquired hypothyroidism (ICD-10 - E03.9) Patient's levothyroxine dose was increased due to fatigue and borderline TSH. We will recheck at this time. Mar, Type 2 diabetes mellitus with diabetic chronic kidney disease (ICD-10 - E11.22) Patient having blood sugar readings in the 1 42-40 range. She is checking daily. She checks at various times throughout the day both before and after meals. She states that it does not seem to spike after meals at all. She did have a reading of 85 but denies having any readings below 70 and years. We will slowly go up on her Basaglar dose. I advised her to increase from 15 to 17 units daily. If a.m. fasting blood sugars are greater than 140 for 3 days in a row she may increase it to 19 and then to 21 units if needed. If still having elevated blood sugar readings she should call the office. She will follow up in 6 weeks for repeat A1c. Mar, Chronic kidney disease, stage 3 unspecified (ICD-10 - N18.30) Patient states she has not been using the Celebrex and doing okay. I advise she stop it altogether at this point. Mar, assisted (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 (ICD-10 - Z79.4) [employer] Other 12-09-2021 Evaluation note* Encounter Date Diagnosis Assessment Notes Treatment Notes Treatment Clinical Notes Mar, GERD (gastroesophageal reflux disease) (ICD-10 - K21.9) [employer] Other 11-22-2021 Evaluation note* Encounter Date Diagnosis Assessment Notes Treatment Notes Treatment Clinical Notes Feb, Localized swelling of both lower legs (ICD-10 - R22.43) Feb, Other Swollen legs This patient likely has multifactorial edema which is due to her elevated body mass index along with her chronic obstructive pulmonary disease. We will look for an element of venous insufficiency that might contribute and so when she returns she will undergo full functional venous duplex examination. [employer] Other 11-17-2021 Evaluation note* Encounter Date Diagnosis Assessment Notes Treatment Notes Treatment Clinical Notes Feb, Encounter for screening mammogram for malignant neoplasm of breast (ICD-10 - Z12.31) [facility] [employer] Other Evaluation noteNo [facility] [employer] Other Evaluation note* Diagnosis Onset Date Resolution Status Monoclonal gammopathy acute Degenerative joint disease of cervical and lumbar spin e acute Iron deficiency anemia acute Bipolar disorder with depression chronic CKD (chronic kidney disease) stage 3, GFR 30-59 ml/min chronic COPD (chronic obstructive pulmonary disease) chronic Diabetes chronic Morbid obesity chronic 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 [facility] [employer] Work Phone: Evaluation noteNo assessment information available [facility] [employer] Work Phone: Evaluation note* Diagnosis Onset Date Resolution Status Degenerative joint disease of cervical and lumbar spin e acute Iron deficiency anemia acute Bipolar disorder with depression chronic CKD (chronic kidney disease) stage 3, GFR 30-59 ml/min chronic COPD (chronic obstructive pulmonary disease) chronic Diabetes chronic Morbid obesity chronic 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 [facility] [employer] Work Phone: Evaluation note* Diagnosis Onset Date Resolution Status Degenerative joint disease of cervical and lumbar spin e acute Bipolar disorder with depression chronic CKD (chronic kidney disease) stage 3, GFR 30-59 ml/min chronic COPD (chronic obstructive pulmonary disease) chronic Diabetes chronic Iron deficiency anemia chron ic Morbid obesity chronic 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 [facility] [employer] Work Phone: History general Narrative - Reported* Type Description Date Medical History asthma Medical History diabetes mellitus II Medical History sleep apnea Medical History Hypertension Medical History spinal stenosis Medical History COPD Medical History GERD Medical History anxiety Surgical History right and left Foot Surgery 06/12 013 Surgical History hysterectomy 2010 Surgical History cholecystectomy 2009 Surgical History C section x 4 Hospitalization History see above Hospitalization History child x 4 Hospitalization History [facility] [employer] Other History general Narrative - Reported* Type Description Date Medical History asthma Medical History diabetes mellitus II Medical History sleep apnea Medical History Hypertension Medical History spinal stenosis Medical History COPD Medical History GERD Medical History anxiety Medical History anemia Medical History Arthritis Medical History cataracts Medical History Gout Medical History kidney disease Medical History obesity Medical History chronic depression Medical History thyroid disease Medical History ulcers Surgical History right and left Foot Surgery 06/12 013 Surgical History hysterectomy 2009 Surgical History cholecystectomy 2009 Surgical History C section x 4 Hospitalization History see above Hospitalization History child x 4 Hospitalization History [facility] Other Hospital Discharge instructions Additional Instructions POST CATARACT SURGERY INSTRUCTIONS EYEDROPS First day (24 hours) Ocuflox or Vigamox and Pred Forte-use 1 drop to operative eye every hour while awake. Artificial tears- May use 1 drop 4 times a day as needed in the surgical eye. Next day Ocuflox or Vigamox-continue to use the drop in the surgery eye 4 times per day for 1 week. Pred Forte-start using the drop in the surgery eye 4 times per day for 1 week, then taper to 3 times per day for 1 week, 2 times a day for 1 week, then once a day for 1 week. Artificial tears- May use 1 drop 4 times a day as needed in the surgical eye. -Wait 5 minutes or more between using the different medications. -Please bring all your eyedrops to every follow-up visit. BATHING: You may shower, bathe, or wash her hair normally after the surgery. SUNGLASSES: Please bring sunglasses for your ride home. Some people are light- sensitive for a few weeks following surgery. Wear sunglasses for comfort. Sunglasses are not required. DUE TO ANESTHESIA: DO NOT make complex decision/sign legal documents for 24 hours after your procedure. No smoking or drinking alcohol for 24 hours. EYE RUBBING: DO NOT RUB YOUR EYE for at least 4 weeks. BLUR: Blurriness is common for several days to weeks. IRRITATION: Mild irritation or watering eye is common. MEDICATION: Continue/resume normal medications, including eye drops. Patient educated on importance of managing medication information: -Give list of medications to primary care physician. -Update information when medications are discontinued, doses are changed or new medications added. -Carry medication list with you at all times in case of emergency. Call if questions/problems occur: If you experience 1. Persistent pain/vomiting 2. Sudden worsening of your eyesight. Please call your felting machine operator helper during normal business hours. If after business hours call Dr. Nik Pineda at his cell [phone] or his office [phone].[facility] Work Phone: Progress note Author Shanae Galicia [facility] April 23, 2022 12:40pm Note Date/Time April 23, 2022 1 1:14[facility] [place] [address] Hem/Onc Follow Up Note - OP Signed Patient: Kelsea Turcios MR#: [id number] : 1960 Acct:[id number] Age/Sex: 61 / F Type: REG RCR Copies to: MD Brenden Manzo DO Kevin T Carnahan, DJaneOJane~ Subjective Date/Time of Service: Date of Service: 04/23/2022 Time of Service: 11:14 Chief Complaint: Patient is here for a 6 month follow up with labs 04/17/2022 for review. No concerns voiced at this time. HPI: 04/23/2022: Kelsea presents for follow-up for her MGUS and iron deficiency anemia.She continues with a lot of fatigue and dyspnea on exertion. She endorses dark/black stool while on oral iron supplementation for the last 6 months. She also notes increased low back and left leg pain over the last month or so that is very bothersome for her. Otherwise no new symptoms. Labs are reviewed and heriron has not improved over the last 6 months since initiating oral supplementation. We will switch to IV iron infusions at this point. Remaining labs stable overall with slightly increased K/L ratio. We will order imaging on her lower back/hip area to evaluate her increased pain. Follow-up will be in 3mowith repeat labs. 10/23/2021: Kelsea is here for follow-up of image guided bone marrow aspiration and biopsy performed in interventional radiology on 09/26/2021. She did have a mildly elevated kappa/lambda light chain ratio and has had polyneuropathy, therefore bone marrow aspiration biopsy was performed to evaluate for amyloidosis or other plasma cell dyscrasia. No change of clinical symptoms overthe last 6 weeks. --Bone marrow biopsy showed a slightly hypercellular bone marrow for patient's age (50% cellularity). No evidence of lymphoproliferative disorder, no evidenceof plasma cell neoplasm identified. No increased blasts, no evidence of dyspoiesis identified. [place] red stain was negative for any evidence of amyloiddeposition. There was absence of stainable iron storage (0/4+). -- We discussed that iron deficiency can sometimes be associated with leg pain and heaviness, therefore I recommended sending baseline serum iron profile whichshowed iron saturation 15% and ferritin 76.6. I am initiating oral ferrous sulfate 325 mg daily over the next 6 months and we will recheck her CBC with iron stores at that time. I will also recheck her free kappa/lambda light chains and immunoglobulins IgG/IgA/IgM with serum protein electrophoresis at 6 months. If she has poor tolerance of oral iron we can coordinate parenteral iron. She may return sooner than 6 months if new symptoms arise. She is in agreement with this plan he was 35-minute moderate complexity follow-up visit. 09/11/2021: I reviewed the results of patient's labs from consult about 4 weeks ago. She did not have any monoclonality noted on urinalysis but does have a mildly elevated kappa/lambda light chain ratio. The patient was given the option of surveillance with every 3-month monoclonal gammopathy labs versus bonemarrow biopsy to determine if she has presence of amyloidosis or other plasma cell dyscrasia. Patient notes that she has been suffering with polyneuropathy and would like to proceed with bone marrow biopsy for further evaluation. Due to her BMI 48, I recommended interventional radiology to perform image guided bone marrow aspiration and biopsy on her and we will review the results approximately 3 weeks after procedure. She is in agreement with this plan over this moderate complexity visit over 25 minutes for review of laboratories and coordination of her image guided bone marrow biopsy. PREVIOUS HISTORY from original consult 08/16/2021: This is a 60-year-old lady who has been followed by neurology for peripheral neuropathy which has been deemed polyneuropathy of axonal loss and type and moderate in severity. She had a prior EMG in 2016 but most recent EMG of bilateral lower extremities was significantly worse. She had an MRI of the lumbar spine without contrast on 09/14/2020 showing a lipoma of her from terminaleand mild lower lumbar discovertebral degenerative changes including facet arthropathy but no central stenosis. She also had a MRI of the cervical spine 09/22/2017 showing mild disc space narrowing at C3-C4 and C5-C6 that was otherwise unremarkable. Bilateral upper extremity EMG showed a remote C8 radiculopathy on the right which was moderate. She had work-up with serum protein electrophoresis on 07/02/2021 showing a monoclonal spike of 0.4 g/dL (no prior labs for comparison). Serum immunofixation showed a monoclonal protein with kappa light chain specificity however quantitative immunoglobulin showed anelevation of IgA at 508 with normal IgG 1134 and IgM 79. She had an antineutrophil antibody screen that was negative and rheumatoid factor was less than 10. She reports chronic fatigue, progressive increase in weight and she is noted to have a BMI of 49. She has mild anemia with most recent hemoglobin 11.6, elevated erythrocyte sedimentation rate of 65, most recent renal function panel showed a creatinine of 1.64 correlating to EGFR, [id number] 32. This has not significantly changed over the last year but is lower than prior labs from 2017- 2020. Most recent calcium within normal limits and we do not have recent imaging other than her MRIs which have not shown any bony lytic lesions. The patient does report diffuse pain. She has urinary tract infections intermittently but no other history of chronic infections. She has no personal history of malignancy, chemotherapy, or radiation therapy. DIAGNOSIS: 1. Monoclonal gammopathy of undetermined significance, possibly associated neuropathy 2. Longstanding diabetes mellitus over the last 8 years 3. Chronic peripheral neuropathy that is recently been worsening 4. 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 COPD with oxygen dependence past 8 years - Summary of Therapies Summary of Therapies: 1. MGUS, no plasma cell neoplasm or amyloidosis, followed by neurology on bone marrow biopsy 09/26/2021 2. Neuropathy unclear etiology 3. Absent iron stores on bone marrow biopsy with iron saturation 15%, started oral iron 10/23/2020 ROS Details: All systems reviewed & no additional complaints except as documented PMFSH - Medical History Medical History: Medical History (Last Reviewed 10/24/21 @ 14:19 by Roxane Bills MD) Abdominal pain Anxiety Asthma COPD (chronic obstructive pulmonary disease) Diabetes Diarrhea GERD (gastroesophageal reflux disease) Hypertension Nausea On home oxygen therapy 3-5 L nasal cannula Sleep apnea Spinal stenosis Wound of right leg - Surgical History Surgical History: Surgical History (Last Reviewed 10/24/21 @ 14:19 by Roxane Bills MD) H/O foot surgery bilateral H/O: section x 4 History of hysterectomy Hx of cholecystectomy - Family History Family History: Family History (Last Reviewed 10/24/21 @ 14:19 by Roxane Bills MD) Son Hypertension Sister Hypertension Colon polyp Grandparent Breast cancer Grandparent Leukemia Brother Diabetes - Social History Smoking Status: Never smoker Substance Use Type: None Social History Comments: 1 son lives with her and spouse, he is 30 y.o. Home Medications & Allergies Allergies codeine Allergy (Verified 04/23/22 10:54) Rash honey Allergy (Verified 04/23/22 10:54) Hives morphine Allergy (Verified 04/23/22 10:54) Gastrointestinal Upset Home Medications cholecalciferol (vitamin D3) 50 mcg (2,000 unit) capsule 1 cap PO DAILY 12/16/16[History Confirmed 10/23/21] gabapentin 800 mg tablet 1 tab PO TID 04/17/17 [History Confirmed 10/23/21] montelukast 10 mg tablet 1 tab PO QHS 10/05/17 [History Confirmed 10/23/21] amlodipine 5 mg tablet 10 mg PO DAILY 01/24/18 [History Confirmed 10/23/21] brexpiprazole 2 mg tablet (Rexulti) 3 mg PO DAILY 01/24/18 [History Confirmed 10/23/21] budesonide-formoterol HFA 160 mcg-4.5 mcg/actuation aerosol inhaler (Symbicort) 2 puff inhalation BID 01/24/18 [History Confirmed 10/23/21] carvedilol 6.25 mg tablet 25 mg PO BID 01/24/18 [History Confirmed 10/23/21] hydrocodone 5 mg-acetaminophen 325 mg tablet 5 mg PO DAILY PRN Pain 01/24/18 [History Confirmed 10/23/21] magnesium oxide 400 mg PO DAILY 01/24/18 [History Confirmed 10/23/21] omeprazole 40 mg capsule,delayed release 40 mg PO DAILY 01/24/18 [History Confirmed 10/23/21] oxybutynin chloride 10 mg tablet,extended release 24 hr 10 mg PO DAILY 01/24/18 [History Confirmed 10/23/21] albuterol sulfate 90 mcg/actuation aerosol inhaler (ProAir HFA) 1 puff inhalation Q4H PRN Wheezing 07/29/21 [History Confirmed 10/23/21] amitriptyline 10 mg tablet 10 mg PO DAILY 07/29/21 [History Confirmed 10/23/21] clobetasol 0.05 % topical ointment 1 applic topical DAILY Use with dressing change x 1 week 1 week #30 grams 07/29/21 [Rx Confirmed 10/23/21] colestipol 1 gram tablet 2 g PO DAILY 07/29/21 [History Confirmed 10/23/21] dicyclomine 20 mg tablet 20 mg PO QID 07/29/21 [History Confirmed 10/23/21] fluticasone propionate 50 mcg/actuation nasal spray,suspension 1 spray intranasal DAILY 07/29/21 [History Confirmed 10/23/21] hydroxyzine HCl 10 mg tablet 10 mg PO TID 07/29/21 [History Confirmed 10/23/21] ipratropium 0.5 mg-albuterol 3 mg (2.5 mg base)/3 mL nebulization soln 3 ml inhalation Q6H PRN Wheezing 07/29/21 [History Confirmed 10/23/21] levomilnacipran 120 mg capsule,24 hr,extended release (Fetzima) 120 mg PO DAILY 07/29/21 [History Confirmed 10/23/21] levothyroxine 75 mcg tablet 50 mcg PO DAILY 07/29/21 [History Confirmed 10/23/21] metformin 850 mg tablet 850 mg PO DAILY 07/29/21 [History Confirmed 10/23/21] mirtazapine 30 mg tablet 30 mg PO QHS 07/29/21 [History Confirmed 10/23/21] sucralfate 1 gram tablet 1 g PO BID 07/29/21 [History Confirmed 10/23/21] zonisamide 50 mg capsule 50 mg PO BID 07/29/21 [History Confirmed 10/23/21] cyclobenzaprine 10 mg tablet 10 mg PO HS 08/16/21 [History Confirmed 10/23/21] duloxetine 60 mg capsule,delayed release sprinkle 60 mg PO DAILY 08/16/21 [History Confirmed 10/23/21] gabapentin 100 mg capsule 100 mg PO TID 08/16/21 [History Confirmed 10/23/21] insulin glargine 100 unit/mL (3 mL) subcutaneous pen (Basaglar KwikPen U-100 Insulin) 15 unit subcut QAM 08/16/21 [History Confirmed 10/23/21] theophylline 80 mg/15 mL oral elixir 200 mg PO DAILY 08/16/21 [History Confirmed 10/23/21] ferrous sulfate 325 mg (65 mg iron) tablet (Iron (ferrous sulfate)) 325 mg PO DAILY 10/23/21 [History Confirmed 10/23/21] ferrous sulfate 325 mg (65 mg iron) tablet (iron) 325 mg PO DAILY #30 tabs 10/23/21 [Rx] Objective - Height/Weight Height/Weight: Height 5 ft Weight 106.3 kg - Vital Signs Vital Signs: 04/23/22 10:55 Pulse Rate [Left Brachial] 75 Respiratory Rate 20 Blood Pressure [Left Arm] 145/82 H 02 Sat by Pulse Oximetry 100 Oxygen Delivery Method Nasal Cannula Oxygen Flow Rate 5 - Pain Back Pain Intensity: 7 Physical Exam Narrative: CONSTITUTIONAL: The patient is in no acute distress. HEAD / FACE: Normocephalic. RESPIRATORY: Normal to inspection. Lungs distant breath sounds. No audible wheezing, rales, rhonchi or rubs. Normal effort. CARDIOVASCULAR: Regular rate and rhythm. No murmurs, gallops, or rubs. ABDOMEN: Bowel sounds normoactive. Soft, nontender and non-distended. No hepatosplenomegaly. No masses noted. INTEGUMENTARY: The skin is unremarkable. No rashes. No suspicious lesions MUSCULOSKELETAL: Normal musculature, no joint deformities or abnormalities, normal range of motion for all four extremities. EXTREMITIES: No edema, cyanosis or clubbing. NEUROLOGICAL: Alert and oriented. Cranial nerves intact. No gross motor deficits. Positive bilateral numbness distal to knees. PSYCHIATRIC: No anxiety or evidence of depression. Results - Labs Labs: Diagram of Most Recent CBC and CMP 04/17/22 10:05 04/17/22 10:05 Labs - Last 7 Days 04/17/22 10:05: Serum Total Protein 7.3, Albumin (Send Out) 3.4, Globulin (PEP) 3.9, Albumin/Globulin (PEP) 0.9, Zdfmx-2-Pkxwbnhpu 0.3, Hqnbt-3-Cclyjjqqy 0.9, Beta Globulins 1.4 H, Gamma Globulins 1.3, M-Damien 0.4 H, PEP Note , IgG 1443, IgA 625 H, IgM 98, Free [place] LC, Quant 162.6 H, Free Lambda LC, Quant 44.5 H, Free [place]/Lambda Ratio 3.65 H 04/17/22 10:05: PHA Creatinine Clear 51.63, Sodium 138, Potassium 3.5, Chloride 98, Carbon Dioxide 30.7 H, Anion Gap 12.8, BUN 17, Creatinine 1.26 H, Est GFR ( Amer) 52, Est GFR (Non-Af Amer) 43, Glucose 269 H, Calcium 9.1, Iron 53, TIBC 346, Iron Saturation 15.3 L, Transferrin 247, Ferritin 72.6, Total Bilirubin 0.3, AST 23, ALT 22, Alkaline Phosphatase 121 H, Total Protein 7.0, Albumin 3.2, Globulin 3.8, Albumin/Globulin Ratio 0.8 04/17/22 10:05: Corrected WBC 10.8, Uncorrected WBC Count 10.8, RBC 4.02, Hgb 11.2 L, Hct 35.4, MCV 88.1, MCH 27.9, MCHC 31.6 L, RDW 15.7 H, Plt Count 273, MPV 7.6, Neut % (Auto) 61.2, Lymph % (Auto) 24.5, [place] % (Auto) 7.9, Eos % (Auto) 5.9, Baso % (Auto) 0.5, Nucleat RBC Rel Count 0.2, Neut # (Auto) 6.6, Lymph # (Auto) 2.6, [place] # (Auto) 0.8, Eos # (Auto) 0.6 H, Baso # (Auto) 0.1 Assessment and Plan (1) 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 She has mild anemia with most recent hemoglobin 11.6, elevated erythrocyte sedimentation rate of 65, most recent renal function panel showed a creatinine of 1.64 correlating to EGFR, psz-Mqnkufj-Pgaqwwgq 32. This has not significantly changed over the last year but is lower than prior labs from [id number]. Most recent calcium within normal limits and we do not have recent imaging other than her MRIs which have not shown any bony lytic lesions. The patient does report diffuse pain. She has urinary tract infections intermittently but no other history of chronic infections. She has no personal history of malignancy, chemotherapy, or radiation therapy. 09/11/2021: Patient returns to review urine protein electrophoresis which showed no M spike, urine immunofixation which showed no monoclonality, and kappa/lambdalight chain analysis with mild elevation of ratio. In addition she was noted tohave elevated beta-2 microglobulin, although this could also be reflective of her stage III chronic kidney disease. Baseline Skeletal survey showed no evidence of bony lytic lesions or osteopenia. She was given the option of surveillance labs every 3 months versus scheduling bone marrow aspiration and biopsy to determine if she has a plasma cell dyscrasia and/or presence of amyloid protein contributing to her neuropathy. She wishes to proceed with bone marrow biopsy. Due to her large body habitus wewill set up bone marrow biopsy with interventional radiology to ensure proper specimen sampling. 10/24/2021: Bone marrow biopsy performed 09/26/2021 in interventional radiology shows no evidence of plasma cell neoplasm or amyloidosis. She does have absent iron stores and I advised adding ferrous sulfate 1 tablet daily. If she has intolerance of ferrous sulfate or failure to respond, we will arrange parenteraliron therapy. Next follow-up with me will be in 6 months with serum protein electrophoresis, quantitative immunoglobulins, and kappa/lambda light chain analysis. We will also repeat CBC, CMP, and Serum iron profile/ferritin level 10. Moderate complexity visit of 35 minutes. 04/23/2022: Kelsea complains of increased back pain over the last month or so and continued fatigue, dyspnea on exertion. Her iron studies did not improve on 6 months of oral iron supplementation, so will switch to IV iron. Her labs are overall stable with slight increase in K/L ratio, but will continue to monitor only for now. Her M-spike is the same as October 2021 and creatinine is improved. We will repeat cbc, cmp, iron studies, spep, flc and immunoglobulins in 3 months, sooner as needed. She is in agreement with this plan and has no further questions. (2) Iron deficiency anemia Qualifiers: Iron deficiency anemia type: unspecified iron deficiency Qualified Code(s):D50.9 - Iron deficiency anemia, unspecified Absent iron stores on bone marrow biopsy with iron saturation low at 15%. Givenher chronic kidney disease and neuropathy we will add ferrous sulfate 1 tablet daily. If she has poor tolerance of oral iron we can consider parenteral iron due to her persistent fatigue. Reassess iron stores in 6 months. 04/23/2022: No improvement in symptoms or iron studies with 6 months of therapy. She confirms she took her iron every day without missing doses. We will plan to switch to IV Venofer 300mg x 3 doses (3) CKD (chronic kidney disease) stage 3, GFR 30-59 ml/min Qualifiers: Chronic kidney disease stage 3 subtype: stage 3b (GFR 30-44) Qualified Code(s): N18.32 - Chronic kidney disease, stage 3b Chronic stable CKD stage 3b. Elevated beta-2 microglobulin likely due to her chronic kidney disease. (4) COPD (chronic obstructive pulmonary disease) Qualifiers: COPD type: emphysema Emphysema type: unspecified Qualified Code(s): J43.9- Emphysema, unspecified Chronic O2 dependence. No recent clinical change. (5) Diabetes Qualifiers: Diabetes mellitus type: type 2 Diabetes mellitus complication status: with neurologic complications Diabetes mellitus complication detail: with polyneuropathy (6) Degenerative joint disease of cervical and lumbar spine (7) Morbid obesity (8) Bipolar disorder with depression - Time with Patient Time Spent with Patient (Follow Up Visit): 35 minutes - Moderate complexity visit to review bone marrow biopsy and recent labs, follow-up frequency, iron deficiency anemia Coordination of Care & Counseling Time: Greater than 50% of time spent with patient was for coordination of care (as documented) and [id number] counseling of patient and/or family. Dictated By: Shanae Galicia APRN DD/ 1114 Signed By: <Electronically signed by LUCI Galicia> 04/23/22 1240 [facility] Work Phone: Reason for visit Narrativediscuss pain management [facility] Other Reason for visit NarrativeNeurosurgery Referral Update [facility] [employer] Other Reason for Referral Reason left hip pain Diagnosis 1 Left hip pain (M25.5 52) Referral Organization [facility] Family Doretha Valadez Referring Provider First Name Peri Referring Provider Last Name Marbella Referring Provider Specialty [facility] Referred Organization [facility] Referred Address ,[place], [place],[address] Referred Provider Specialty Orthopaedic Surgery Referral Priority Routine Reason CANCELLED Excessiv e daytime somnolence, hx narcolepsy diagnosis, currently on CPAP for TANYA Diagnosis 1 TANYA (obstructive sle ep apnea) (G47.33) Referral Organization [facility] Family Doretha Valadez Referring Provider First Name Peri Referring Provider Last Name Tyson Referring Provider Specialty [facility] [employer] Referred Organization [facility] Referred Address [address] [place], [place],[address] Referred Provider Specialty Sleep Medici ne Referral Priority Routine General Notes Elaina Salcido 03/2022 02:41:07 PM > referral received, Feli already faxed referral to Central Scheduling. Closing referral Reason * Waiting for appt neurology records pending Diagnosis 1 Low back pain, unspe cified (M54.50) Referral Organization [facility] Family Doretha Valadez Referring Provider First Name Giovanni Referring Provider Last Name Josh Referring Provider Specialty [facility] Referred Organization [facility] Pain Managemen t Referred Provider Nicko Mckeon Referred Address [address] [address] ,[place], [place],[address] Referred Provider Specialty Pain Medicin e Referral Priority Routine General Notes Elaina Salcido 01:53:26 PM > referral received and sent p2p successful per log Reason * FU 07/29 ulcer Diagnosis 1 Non-pressure chronic ulcer of unspecified part of unspecified lower leg with unspecified severity (L97.909) Referral Organization [facility] Family Doretha Valadez Referring Provider First Name Giovanni Referring Provider Last Name Josh Referring Provider Specialty [facility] [place] Referred Organization [facility] Referred Address [address] [place], [place],[address] Referred Provider Specialty Wound Care Referral Priority Routine General Notes Elaina Salcido 02/2022 11:28:18 AM > referral received and faxed Chief Complaint and Reason for Visit Chief Complaint d47.2 g63 e66.01 z99 .81 I10 Abnormal SPEP Controlled substance agreement signed Hematuria, u Reason for Visit Monoclonal gammopath y Degenerative joint disease of cervical and lumbar spine Iron deficiency anemia Bipolar disorder with depression CKD (chronic kidney disease) stage 3, GFR 30-59 ml/min COPD (chronic obstructive pulmonary disease) Diabetes Morbid obesity 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) Chief Complaint Controlled substance agreement signed Hematuria, u Flank pain Chief Complaint Controlled substance agreement signed Hematuria, u Flank pain Obstructive sleep apnea Chief Complaint Flank pain Obstructive sleep apnea Abnormal SPEP Reason for Visit Degenerative joint d isease of cervical and lumbar spine Iron deficiency anemia Bipolar disorder with depression CKD (chronic kidney disease) stage 3, GFR 30-59 ml/min COPD (chronic obstructive pulmonary disease) Diabetes Morbid obesity 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) Chief Complaint E11.22 E03.9 Abnormal SPEP Z12.39 Reason for Visit Degenerative joint d isease of cervical and lumbar spine Iron deficiency anemia Bipolar disorder with depression CKD (chronic kidney disease) stage 3, GFR 30-59 ml/min COPD (chronic obstructive pulmonary disease) Diabetes Morbid obesity 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) Chief Complaint Z12.39 I83.813 Abnormal SPEP E11.65;I10;E55.9 Reason for Visit Degenerative joint d isease of cervical and lumbar spine Bipolar disorder with depression CKD (chronic kidney disease) stage 3, GFR 30-59 ml/min COPD (chronic obstructive pulmonary disease) Diabetes Iron deficiency anemia Morbid obesity 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) Chief Complaint I83.813 Abnormal SPEP E11.65;I10;E55.9 C lumbar spondylosis M25.552 Reason for Visit Degenerative joint d isease of cervical and lumbar spine Bipolar disorder with depression CKD (chronic kidney disease) stage 3, GFR 30-59 ml/min COPD (chronic obstructive pulmonary disease) Diabetes Iron deficiency anemia Morbid obesity 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) Chief Complaint M25.552 C lumbar spondylosis Chief Complaint M25.552 C lumbar spondylosis m54.16 Chief Complaint C lumbar spondylosis m54.16 Left Cataract Left Cataract Chief Complaint C lumbar spondylosis m54.16 Left Cataract Left Cataract Abnormal SPEP Reason for Visit Degenerative joint d isease of cervical and lumbar spine Bipolar disorder with depression CKD (chronic kidney disease) stage 3, GFR 30-59 ml/min COPD (chronic obstructive pulmonary disease) Diabetes Iron deficiency anemia Morbid obesity 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) Chief Complaint C lumbar spondylosis m54.16 Left Cataract Left Cataract Abnormal SPEP m25.552 Reason for Visit Degenerative joint d isease of cervical and lumbar spine Bipolar disorder with depression CKD (chronic kidney disease) stage 3, GFR 30-59 ml/min COPD (chronic obstructive pulmonary disease) Diabetes Iron deficiency anemia Morbid obesity 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) Chief Complaint Left Cataract Left Cataract m25.552 d47.2 I73.9 Abnormal SPEP Reason for Visit Degenerative joint d isease of cervical and lumbar spine Bipolar disorder with depression CKD (chronic kidney disease) stage 3, GFR 30-59 ml/min COPD (chronic obstructive pulmonary disease) Diabetes Iron deficiency anemia Morbid obesity 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) Family History No Family History Records Found Relationship Condition Age at Onset Recorded Date/T [place] natural son Hypertension Unknown sister Hypertension Unknown Polyp of colon Unknown grandparent Malignant neoplasm of breast Unknown grandparent Leukemia Unknown brother Diabetes mellitus Unknown Advance Directives No Advanced Directives Records Found Advance Directive Response Recorded Date/ Time Advance Directives No March 10:19am Advance Directive Response Recorded Date/ Time Advance Directives No March 9:19am Summary Purpose Additional Source Comments REASON FOR VISIT (unrecogniz ed section and content) med refillNo Informationmed refill/mammo orderrefillNo InformationREF BY DR SILVERIO FOR EDEMA, Swollen leg6 WEEK F/Umed refillmed refillSORE ON RIGHT LEGnorco scriptNo InformationNo InformationNorco PAprior authMED REFILLmed refillsmed questionmed refill6 week follow upnorco scriptmed refill1 month Follow upmed refill1 month Follow upmed refillpain management referralREF BY DR TYLER FOR LOW BACK PAINOzempic PAmed refillsPain management consultmed refills3 month Follow upmed refillsnorco issueNorco PAmed refill2 month Follow upNORCO PAmed refill6 week follow up, A1Clab resultsfree style libreREFILLmed refillmed refillmed refillmed refillrefilllab concernsmed refillsmed refill3 month Follow up, A1Clab resultsmed requestmammogram resultsmed refills/requestVASC 1 YR FOLLOW UP; FF VENOUS DUPLEX BOTH LEGS 8Amed refillmed refillmed refillmed refillrefillwheelchairFACE TO FACE FOR A WALKERrollator inquiryNo InformationDME questionsmed requestmed refillsmed refillMRI resultsmed refillmed refillreferred by Dr Josue, Left sided low back and leg painNo Informationmed refillmed refillpossible yeast infectionhip geraldine referralClinical Acute MedicineawRI resultsOrtho Referralmed refillmed requestmed refillwound care referralmed refill Care Teams (unrecognized sec tion and content) Team Status: Active Member Role Status Alyssa Tyson , DO Primary Care Provider Active Team Status: Inactive Member Role Status Alyssa Tyson , DO Primary Care Provider Active Ang Murphy MD Attending Provider Acti ve Team Status: Inactive Member Role Status Alyssa Tyson , DO Primary Care Provider, Attending Simon vargas Active Team Status: Active Member Role Status Alyssa Tyson , DO Primary Care Provider Active NON STAFF Attending Provider Active Team Status: Active Member Role Status Alyssa Bills MD Active Mohan Groves , DO Referring Provider Active Peri Tyson , DO Primary Care Provider Active Shanae Galicia APRN Attending Provider Acti ve Team Status: Inactive Member Role Status Alyssa Tyson , DO Primary Care Provider Active Domenico Whitmore MD Attending Provider Active Team Status: Inactive Member Role Status Alyssa Tyson DO Primary Care Provider Active Jeannie Aguilar MD Attending Provider Active Team Status: Inactive Member Role Status Alyssa Tyler , DO Primary Care Provider, Attending Provider Active Team Status: Inactive Member Role Status Alysas Tyler , DO Primary Care Provider Active Roxane Bills MD Attending Provider Active Team Status: Active Member Role Status Alyssa Tyler , DO Primary Care Provider Active Roxane Bills MD Attending Provider Active Mohan Groves , DO Referring Provider Active Team Status: Inactive Member Role Status Alyssa Tyler , DO Primary Care Provider Active Peri Tyson , DO Attending Provider Active Team Status: Active Member Role Status Alyssa Tyler , DO Primary Care Provider Active Team Status: Inactive Member Role Status Dates Marcus Cummins MD Attending Provider Active Peri Tyson , DO Primary Care Provider Active Svetlana Garcia , DO Referring Provider Active Team Status: Active Member Role Status Dates Roxane Bills MD Attending Provider Active Mohan Groves , DO Referring Provider Active Peri Tyson , DO Primary Care Provider Active Team Status: Inactive Member Role Status Dates Peri Tyson , DO Primary Care Provider Active Jez Josue , DO Attending Provider Active Team Status: Inactive Member Role Status Dates Peri Tyson , DO Primary Care Provider Active Nik Pineda MD Attending Provider Active Team Status: Active Member Role Status Dates Roxane Bills MD Attending Provider Active Brenden Groves , DO Referring Provider Active Peri Tyson , DO Primary Care Provider Active Lakialuciano Galicia APRN Active Team Status: Inactive Member Role Status Dates Peri Tyson , DO Primary Care Provider Active Roxane Bills MD Attending Provider Active Goals (unrecognized section and content) Goals may be documented in a n alternate section INFORMATION SOURCE (unrecogn ized section and content) DATE CREATED AUTHOR 07/15/2022 [facility] DATE CREATED AUTHOR AUTHOR'S ORGANIZ ATION 04/20/2023 [facility] EPIC DATE CREATED AUTHOR AUTHOR'S ORGANIZ ATION 04/29/2023 [facility] FOR RECORDS PERTAINING TO PATIENTS WHO ARE OR HAVE BEEN ENROLLED IN A CHEMICAL DEPENDENCY/SUBSTANCEABUSE PROGRAM, SOME INFORMATION MAY BE OMITTED. This clinical summary was aggregated from multiple sources. Caution should be exercised in using it in the provision of clinical care. This summary normalizes information from multiple sources, and as a consequence, information in this document may materially change the coding, format and clinical context of patient data. In addition, data may be omitted in some cases. CLINICAL DECISIONS SHOULD BE BASED ON THE PRIMARY CLINICAL RECORDS. [employer] provides no warranty or guarantee of the accuracy or completeness of information in this document.
== END 2023-05-05 11:32 | disposition home or self-care (01) ==
PROVIDERS: Visit Provider Nurse Practitioner
DX: M79.2 Neuralgia and neuritis, unspecified (principal); G89.29 Other chronic pain; M62.838 Other muscle spasm
CPT/HCPCS: G0463

== ENCOUNTER 2023-06-02 07:15 | Day surgery (SDC) | payer OTHER, SELFPAY ==
--- OUTSIDE RECORDS SUMMARY | 2023-06-02 07:19 | XMS_ITS | CCD ---
Author Name Unknown Address [address] [facility] [id number] [place] [address] Organization [facility] Care Team Providers Care Oracle Adf Developer Name Role Phone Giovanni Moreno Unavailable Domenico Whitmore Unavailable Nicko Mckeon Unavailable Adore Barroso Unavailable Josafat Nunes Unavailable DO Giovanni Moreno Primary Care Provider MD Roxane Bills Attending Provider DO Giovanni Moreno Attending Provider DO Mohan Groves Referring Provider [phone] DO Peri Tyson Attending Provider [phone] Peri Tyson Unavailable DO Giovanni Moreno Primary Care Provider DO Truman Morenoin Radha Primary Care Provider DO Peri Tyson Attending Provider [phone] MD Marcus Cummins Attending Provider DO Peri Tyson Primary Care Provider DO Svetlana Garcia Referring Provider DO Giovanni Moreno Primary Care Provider DO Criselda Tysonria Luis Attending Provider MD Roxane Bills Attending Provider DO Mohan Groves Referring Provider Marbella DO Peri A Primary Care Provider Tyson, DO Peri A Attending Provider MD Roxane Bills Attending Provider DO Mohan Groves Referring Provider Lulú Ruth Unavailable VIJAY ., DR SANAM Melchor Admitting Unavailable VIJAY ., DR SANAM Melchor Attending Unavailable MIS, DR HOUSTON Primary Care Unavailable MACIEL ., JAIME Consulting Unavailable LAKMIREYAMIPATHCarmen ., NARENDRANATH Consulting Lynn vailable VIJAY ., DR SANAM Melchor Admitting Unavailable VIJAY ., DR SANAM Melchor Attending Unavailable MIS, DR HOUSTON Primary Care Unavailable LINARES ., DR SANAM Melchor Consulting Unavailable MACIEL ., JAIME Consulting Unavailable Tyson, DO Peri A Primary Care Provider Tyson, DO Peri A Attending Provider MD Domenico Whitmore Attending Provider DO Mohan Groves Referring Provider [phone] LUCI Galicia Attending Provider MD Jeannie Aguilar Attending Provider Marbella DO Prei A Primary Care Provider NON STAFF Attending Provider Unavailable Tyson DO Peri A Attending Provider [phone] Marbella, DO Peri A Primary Care Provider MD Ang Murphy Attending Provider Unavailable DO Jez Josue A Attending Provider Marbella, DO Peri A Primary Care Provider MD Nik Pineda Attending Provider Patsy Harvey Unavailable MD Roxane Bills Attending Provider [phone] DO Brenden Groves Referring Provider Tyson, DO Peri A Attending Provider Tyson, DO Peri A Primary Care Provider MD Nik Pineda Attending Provider Tyson, DO Peri A Attending Provider MD Roxane Bills Attending Provider DO Brenden Groves Referring Provider MACK PRIDE Attending Unavailable Tyson, DO Peri A Primary Care Provider MD Truong Ward Attending Provider Tyson, DO Peri A Attending Provider LUCI Diehl Attending Provider Tyson, DO Peri A Primary Care Provider LUCI Diehl Attending Provider [phone] Tyson, Peri A Primary Care Unavailable Lakshmipathcarmen, Narendranath Attending Unava ilable Katherine, Narendranath Admitting Unava ilable Tyson, Peri A Attending Unavailable Tyson, Peri A Admitting Unavailable Tyson, Peri A Primary Care Unavailable Jez Josue Attending Unavailable Tyson, Peri A Primary Care Unavailable Jez Josue Admitting Unavailable Tyson, Peri A Primary Care Unavailable Truong Ward Admitting Unavailab le Truong Ward Attending Unavailab le Tyson, Peri A Primary Care Unavailable Nik Pineda Admitting Unavailable Nik Pineda Attending Unavailable Tyson, Peri A Primary Care Unavailable Roxane Bills Attending Unavailable Brenden Groves Referring Unavailab le Roxane Bills Admitting Unavailable Tyson, Peri A Primary Care Unavailable Tyson, Peri A Attending Unavailable Tyson, Peri A Admitting Unavailable Tyson, Peri A Primary Care Unavailable Sanju Roxane Admitting Unavailable Roxane Bills Attending Unavailable Tyson, Peri A Primary Care Unavailable Tyson, Peri A Attending Unavailable Tyson, Peri A Admitting Unavailable Tyson, Peri A Primary Care Unavailable Copsey, Erica Admitting Unavailable Copsey, Erica Attending Unavailable Tyson, Peri A Primary Care Unavailable Copsey, Erica Attending Unavailable Copsey, Erica Admitting Unavailable Tyson, Peri A Attending Unavailable Tyson, Peri A Admitting Unavailable Tyson, Peri A Primary Care Unavailable Tyson, Peri A Primary Care Unavailable Domenico Whitmore Attending Unavailable Domenico Whitmore Admitting Unavailable Tyson, Peri A Primary Care Unavailable Nik Pineda Admitting Unavailable Nik Pineda J Attending Unavailable Tyson, Peri A Primary Care Unavailable Jeannie Aguilar Attending Unavailable Jeannie Aguilar Admitting Unavailable Josh PARK, Giovanni Garcia Primary Care Provider MD Roxane Bills Attending Provider Tyson, DO Peri A Primary Care Provider MD Najma Wardhman Attending Provider Allergies Allergy Classification Reported Allergen(s) Allergy Type Date of Onset Reaction(s) Facility (20 sources) Codeine Drug Allergy 10-24-19 22 Itching [facility] (20 sources) Honey Propensity to adverse reactions 09-08-19 20 anaphylaxis [facility] (20 sources) Morphine Drug Allergy 10-24-19 22 Rash [facility] (1 source) Codeine Drug Allergy 11-15-19 17 [facility] (1 source) Honey Drug allergy (disorder) 11-15-19 17 [facility] (1 source) Morphine Drug Allergy 11-15-19 17 [facility] (20 sources) traMADol Drug Allergy 12-19-19 23 hallucinations, Unknown Reaction, Hallucinating, Hallucinating, hallucinations [facility] (1 source) Morphine Drug Allergy Unknown [facility] Other (1 source) Codeine Drug Allergy 04-28-19 24 [facility] (1 source) Honey Drug allergy (disorder) 04-28-19 [facility] (1 source) Morphine Drug Allergy 04-28-19 [facility] (1 source) traMADol Drug Allergy 04-28-19 [facility] Medications Current Medications Medication Drug Class(es) Dates Sig (Normalized) Sig (Original) acetaminophen 325 mg / HYDROcodone bitartrate 5 mg oral tablet (20 sources) Opioid Agonist Start: 11-04-2021 take 0.5-1 tablets by mouth once daily as needed [place] 5-325 MG 1/2 to 1 tablet as needed Orally daily for 30 days Oct, Active Start: 11-01-2021 take 0.5-1 tablets b y mouth once daily as needed [place] 5-325 MG 1/2 to 1 tablet as needed Orally daily for 30 days Oct, Active Start: 10-02-2021 take 0.5-1 tablets b y mouth once daily as needed [place] 5-325 MG 1/2 to 1 tablet as needed Orally daily for 30 days Sep, Active Start: 09-02-2021 take 0.5-1 tablets b y mouth once daily as needed [place] 5-325 MG 1/2 to 1 tablet as needed Orally daily for 30 days August, Active Start: 07-03-2021 take 1 tablet by jocelin twice daily as needed [place] 5-325 MG 1 tablet as needed Orally twice a day for 30 days Jun, Active Start: 06-05-2021 take 1 tablet by jocelin th twice daily as needed [place] 5-325 MG 1 tablet as needed Orally twice a day for 30 days May, Active Start: 04-30-2021 take 1 tablet by jocelin th twice daily as needed [place] 5-325 MG 1 tablet as needed Orally twice a day for 30 days Apr, Active Start: 04-29-2021 take 1 tablet by jocelin th twice daily as needed [place] 5-325 MG 1 tablet as needed Orally twice a day for 30 days Apr, Active Start: 03-25-2021 take 1 tablet by jocelin th twice daily as needed [place] 5-325 MG 1 tablet as needed Orally twice a day for 30 days Mar, Active Start: 01-24-2018 take 5 mg by mouth t hree times daily Hydrocodone-Acetaminophen Active 5 MG PO Three times daily January 23, 2018 11:00pm Start: 01-24-2018 HYDROcodone-Ac etaminophen 5-325 MG 1 tablet as needed severe pain scale 9-10 Orally BID for 9 days Fill on or after 02/22/2022 Oct, Active Start: 12-16-2016 End: 04-17-2017 take 1 tablet by mouth every six hours Hydrocodone-Acetaminophen Discontinued 1 TAB PO Q6H December 15, 2016 11:00pm April 17, 2017 10:02am take 1 tablet by jocelin twice daily as needed [place] 5-325 MG 1 tablet as needed Orally twice a day Active [id number] 200 actuat albuterol 0.09 mg/actuat metered dose inhaler (20 sources) beta2-Adrenergic Agonist Start: 09-23-2022 take 2 puff(s) by inhalation in the morning, then take 2 puff(s) by inhalation in the evening, then take 2 puff(s) by inhalation at bedtime albuterol HFA (Ventolin HFA) 90 mcg/act inhaler Indications: Chronic obstructive pulmonary disease, unspecified COPD type (CMS/HCC) Inhale 2 puffs in the morning and 2 puffs in the evening and 2 puffs before bedtime. 18 g 5 09/23/2022 Active Start: 07-29-2021 take 1 puff(s) by in halation every four hours Albuterol Sulfate (Proair Hfa) 90 mcg/actuation Hfa Aerosol Inhaler Active 1 PUFF INHALATION Q4H July 28, 2021 11:00pm Start: 12-26-2016 End: 04-17-2017 take 2.5 mg by inhalation every three hours Albuterol Sulfate Discontinued 2.5 MG INHALATION Q3H 30 30 December 25, 2016 11:00pm April 17, 2017 10:07am take 1 puff(s) by in halation every four hours as needed albuterol 0.833 mg/ml / ipratropium bromide 0.167 mg/ml inhalation solution (20 sources) Anticholinergic, beta2-Adrenergic Agonist Start: 09-23-2022 End: 09-23-2023 ipratropium-albuterol (Duo-Neb) 0.5-2.5 mg/3 mL nebulizer solution Indications: Chronic obstructive pulmonary disease, unspecified COPD type (CMS/HCC) Take 3 mL by nebulization 4 (four) times a day as needed for wheezing or shortness of breath. 360 mL 11 09/23/2022 09/23/2023 Active Start: 08-16-2021 End: 08-16-2021 take 1 mL by inhalation four times daily Ipratropium-Albuterol Discontinued 3 ML INHALATION Four times daily [...] 15, 2016 11:00pm December 16, 2016 3:10am amitriptyline hydrochloride 10 mg oral tablet (20 sources) Tricyclic Antidepressant Start: 07-29-2021 take 10 mg by mouth once daily in the morning Amitriptyline Active 10 MG PO Every morning July 28, 2021 11:00pm amLODIPine 10 mg oral tablet (20 sources) Dihydropyridine Calcium Channel Paple Start: 07-21-2022 take 1 tablet by mouth in the morning amLODIPine (Norvasc) 10 MG tablet Take 10 mg by mouth in the morning. 0 07/21/2022 Active Start: 01-24-2018 take 10 mg by mouth once daily in the morning Amlodipine Active 10 MG PO Every morning January 23, 2018 11:00pm Start: 12-16-2016 End: 12-26-2016 take 1 tablet by mouth at bedtime Amlodipine Discontinued 1 TAB PO Bedtime December 15, 2016 11:00pm December 26, 2016 11:19am amoxicillin 500 mg oral tablet (6 sources) Penicillin-class Antibacterial Start: 02-10-2022 take 1 tablet by mouth every eight hours asenapine 5 mg sublingual tablet (20 sources) Atypical Antipsychotic take 5 mg under the tongue every twelve hours Saphris SL tablet Place 5 mg under the tongue every 12 (twelve) hours. 0 Active benzonatate 100 mg oral capsule (20 sources) Non-narcotic Antitussive Start: 06-30-2022 take 1 capsule by mouth three times daily as needed benzonatate (Tessalon) 100 MG capsule TAKE 1 CAPSULE BY MOUTH THREE TIMES A DAY NEEDED FOR 5 DAYS 0 02/06/2023 Active BIPAP Machine (20 sources) BIPAP Machine Ac tive brexpiprazole 4 mg oral tablet (20 sources) Atypical Antipsychotic Start: 08-21-2022 take 1 tablet by mouth in the morning Rexulti 4 MG tablet Take 1 tablet by mouth in the morning. 0 08/21/2022 Active Start: 01-24-2018 take 1 tablet by jocelin th once daily in the morning Brexpiprazole (Rexulti) 2 mg Tablet Active 3 MG PO Every morning January 23, 2018 11:00pm Start: 12-16-2016 End: 04-17-2017 take 1 tablet by mouth once daily Brexpiprazole Discontinued 1 TAB PO Daily December 26, 2016 11:47am April 17, 2017 10:06am take 1 tablet by jocelin th once daily Brexpiprazole 3 MG 1 tablet Orally Once a day Active 60 actuat budesonide 0.16 mg/actuat / formoterol fumarate 0.0045 mg/actuat metered dose inhaler (20 sources) Corticosteroid, beta2-Adrenergic Agonist Start: 09-23-2022 End: 09-23-2023 take 2 puff(s) by inhalation in the morning budesonide-formoterol (Symbicort) 160-4.5 MCG/ACT inhaler Indications: Chronic obstructive pulmonary disease, unspecified COPD type (CMS/HCC) Inhale 2 puffs in the morning and 2 puffs before bedtime. Rinse mouth with water after use to reduce aftertaste and incidence of candidiasis. Do not swallow.. 1 each 5 09/23/2022 09/23/2023 Active Start: 01-24-2018 take 1 puff(s) by in [...] carboxymethylcellulose sodiu m 5 mg/ml ophthalmic solution (11 sources) Start: 03-18-2023 take 1 drop(s) into the eye(s) three times daily as needed Refresh Tears 0.5 % ophthalmic solution INSTILL 1 DROP INTO EACH EYE 3 TIMES A DAY NEEDED 30 DAYS 0 03/18/2023 Active Refresh Tears 0. 5 % INSTILL 1 DROP INTO EACH EYE 3 TIMES A DAY NEEDED 30 DAYS for 30 Active carvedilol 6.25 mg oral tablet (20 sources) alpha-Adrenergic Apple, beta-Adrenergic Apple Start: 01-24-2018 take 25 mg by mouth twice daily Carvedilol Active 25 MG PO Twice daily January 24, 2018 5:40pm Start: 12-19-2016 End: 01-24-2018 take 6.25 mg by mouth twice daily Carvedilol Discontinued 6.25 MG PO Twice daily 60 30 December 26, 2016 11:47am January 24, 2018 5:41pm Start: 12-16-2016 End: 12-19-2016 take 1 tablet by mouth twice daily Carvedilol Discontinued 1 TAB PO Twice daily December 15, 2016 11:00pm December 19, 2016 10:10am take 1 tablet by jocelin every twelve hours Coreg 25 MG tablet Take 25 mg by mouth every 12 (twelve) hours. 0 Active cholecalciferol 0.05 mg oral capsule (20 sources) Vitamin D Start: 12-16-2016 take 1 capsule by mouth twice daily Cholecalciferol (Vitamin D3) Active 1 CAP PO Twice daily December 15, 2016 11:00pm Start: 12-16-2016 take 1 capsule by mo [facility] once daily Cholecalciferol (Vitamin D3) Active 1 CAP PO Daily December 16, 2016 12:00am cloNIDine hydrochloride 0.1 mg oral tablet (20 sources) Central alpha-2 Adrenergic Agonist Start: 10-21-2021 take 1 tablet by mouth twice daily cloNIDine HCl 0.1 MG 1 tablet Orally twice daily for 90 day(s) Oct, Active Comp.Stocking,Thigh, Long,Large (1 source) Start: 05-27-2023 Comp.Stocking,Thigh, Long,Large Active 0 .Route 2 May 27, 2023 12:00am As directed cyclobenzaprine hydrochloride 10 mg oral tablet (20 sources) Muscle Relaxant Start: 07-29-2021 End: 08-16-2021 take 10 mg by mouth at bedtime Cyclobenzaprine Active 10 MG PO Bedtime August 15, 2021 11:00pm dapagliflozin 5 mg oral tablet (20 sources) Sodium-Glucose Cotransporter 2 Inhibitor Start: 08-14-2022 take 1 tablet by mouth once daily in the morning Dapagliflozin Propanediol (Farxiga) 5 mg tablet Active 5 MG PO Every morning December 04, 2022 11:00pm Start: 07-29-2021 End: 08-16-2021 take 1 tablet by mouth once daily Dapagliflozin Propanediol (Farxiga) 5 mg Tablet Discontinued 5 MG PO Daily July 28, 2021 11:00pm August 16, 2021 9:22am diclofenac sodium 0.01 mg/mg topical gel (2 sources) Nonsteroidal Anti-inflammatory Drug Start: 03-23-2023 End: 05-21-2023 diclofenac sodium 1 % gel Indications: Diabetes mellitus due to underlying condition with diabetic polyneuropathy, with long-term current use of insulin ([facility]) APPLY 4 GRAMS TO AFFECTED AREA 4 TIMES DAILY 100 g 3 05/21/2023 Active dicyclomine hydrochloride 20 mg oral tablet (20 sources) Anticholinergic Start: 09-02-2022 take 1 tablet by mouth three times daily as needed dicyclomine (Bentyl) 20 MG tablet Take 20 mg by mouth 3 (three) times a day as needed. 0 09/02/2022 Active Start: 07-29-2021 take 20 mg by mouth four times daily Dicyclomine Active 20 MG PO Four times daily July 28, 2021 11:00pm DULoxetine 60 mg delayed release oral capsule (20 sources) Serotonin and Norepinephrine Reuptake Inhibitor Start: 06-24-2022 take 1 capsule by mouth in the morning DULoxetine (Cymbalta) [address] capsule Take 60 mg by mouth in the morning. 0 06/24/2022 Active Start: 08-16-2021 End: 05-27-2023 take 60 mg by mouth once daily in the morning Duloxetine Discontinued 60 MG PO Every morning August 15, 2021 11:00pm May 27, 2023 9:08am Start: 01-24-2018 End: 07-29-2021 take 3 capsules by mouth once daily Duloxetine (Cymbalta) 20 mg Capsule,Delayed Release(Dr/Ec) Discontinued 60 MG PO Daily January 23, 2018 11:00pm July 29, 2021 2:58pm ferrous sulfate 325 mg oral tablet (20 sources) Start: 10-24-2022 take 1 tablet by jocelin th every twenty-four hours Start: 10-24-2022 take 1 [...] dose nasal spray (20 sources) Corticosteroid Start: 12-05-2022 take 1 spray(s) nasal route once daily fluticasone (Flonase) 50 MCG/ACT nasal spray Indications: Chronic obstructive pulmonary disease, unspecified (CMS/HCC) USE 1 SPRAY INTO EACH NOSTRIL EVERY DAY FOR 30 DAYS 16 mL 0 12/05/2022 Active Start: 01-24-2018 End: 07-29-2021 Fluticasone Propionate (Flon ase) 50 mcg/actuation [place],Suspension Active 1 SPRAY INTRANASAL Daily July 28, 2021 11:00pm Start: 12-16-2016 End: 04-17-2017 Fluticasone Propionate (Flon ase Allergy Relief) 50 mcg/actuation [place],Suspension Discontinued 1 SPRAY INTRANASAL Daily December 26, 2016 11:47am April 17, 2017 10:04am take 1 spray(s) nasa l route once daily as needed FreeStyle Alfredo 14 Day Reade r - (20 sources) Start: 02-12-2022 Start: 02-12-2022 FreeStyle Libr e 14 Day Twilight - as directed every 14 days Feb, Active FreeStyle Alfredo 14 Day Senso r - (20 sources) Start: 02-12-2022 Start: 02-12-2022 FreeStyle Libr e 14 Day Sensor - as directed every 14 days for 28 days Feb, Active FreeStyle Alfredo 2 Twilight - (20 sources) Start: 02-19-2022 FreeStyle Libr e 2 Twilight - as directed Feb, Active FreeStyle Alfredo 2 Twilight - as directed Active FreeStyle Alfredo 2 Sensor - (20 sources) Start: 08-04-2022 Start: 08-04-2022 Start: 08-04-2022 FreeStyle Libr e 2 Sensor - as directed SQ every 14 days for 90 days Jul, Active Start: 02-19-2022 FreeStyle Libr e 2 Sensor - as directed SQ every 2 weeks for 30 days Feb, Active furosemide 40 mg oral tablet (20 sources) Loop Diuretic Start: 04-28-2023 take 40 mg by mouth once daily Furosemide Active 40 MG PO Daily April 28, 2023 12:00am Start: 12-27-2013 take 1.5 tablets by mouth every twenty-four hours Lasix 40 MG 1.5 tablet Orally Once a day for 30 day(s) Dec, Active Start: 12-27-2013 End: 08-16-2021 take 3 tablets by mouth once daily Furosemide Discontinued 3 TAB PO Daily July 29, 2021 10:13am August 16, 2021 9:33am Start: 12-27-2013 End: 09-26-2021 take 1 tablet by mouth once daily Furosemide (Lasix) 4 0 mg Tablet Discontinued 40 MG PO Daily August 15, 2021 11:00pm September 26, 2021 8:14am gabapentin 300 mg oral capsule (20 sources) Anti-epileptic Agent Start: 09-16-2022 take 1 capsule by mouth in the morning, then take 1 capsule by mouth in the evening, then take 1 capsule by mouth at bedtime gabapentin (Neurontin) 300 MG capsule Take 300 mg by mouth in the morning and 300 mg in the evening and 300 mg before bedtime. 0 09/16/2022 Active Start: 08-16-2021 take 600 mg by mouth [...] 17, 2017 10:10am July 30, 2022 1:59pm 12 hr guaiFENesin 600 mg extended release oral tablet (1 source) Start: 01-26-2023 take 1 tablet by mouth in the morning, then take 1 tablet by mouth every twelve hours at bedtime guaiFENesin (Mucus Relief) 600 MG 12 hr tablet Indications: Chronic obstructive pulmonary disease, unspecified COPD type (CMS/HCC) Take 1 tablet (600 mg) by mouth in the morning and 1 tablet (600 mg) before bedtime. 60 tablet 5 01/26/2023 Active hydrOXYzine hydrochloride 10 mg oral tablet (20 sources) Antihistamine Start: 07-29-2021 take 10 mg by mouth three times daily Hydroxyzine Hcl Active 10 MG PO Three times daily July 28, 2021 11:00pm 3 ml insulin glargine 100 unt/ml pen injector (20 sources) Insulin Analog Start: 02-01-2023 Lantus SoloStar 100 UNIT/ML pen INJECT 25 UNITS SUBCUTANEOUSLY DAILY 0 02/01/2023 Active Start: 12-05-2022 End: 12-05-2022 Insulin Glargine (Lantus Meri ostar U-100 Insulin) 100 unit/mL (3 mL) insulin [...] Subcutaneous once a day Active Lantus Active 3 ml insulin lispro-aabc 100 unt/ml pen injector (1 source) Insulin Analog Start: 03-20-2023 Lyumjev KwikPe n 100 UNIT/ML pen PLEASE SEE ATTACHED FOR DETAILED DIRECTIONS 0 03/20/2023 Active Insulin Lispro-Aabc (Lyumjev Kwikpen U-100 Insulin) 100 unit/mL insulin pen (7 sources) Start: 12-05-2022 Insulin Lispro -Aabc (Lyumjev Kwikpen U-100 Insulin) 100 unit/mL insulin pen Active 30 UNIT SUBCUT 3x/Day before meals December 04, 2022 11:00pm FSBS 151-200 2 u 200-250 3 units 250-300 5 units 300-350 6 units 351-400 7 units per patient Start: 12-05-2022 Insulin Lispro -Aabc (Lyumjev Kwikpen [...] sources) Serotonin and Norepinephrine Reuptake Inhibitor Start: 022 take 1 capsule by mouth once daily [...] mg oral tablet (20 sources) l-Thyroxine Start: 01-01-2022 take 1 tablet by mouth once daily in the morning levothyroxine (Synthroid, Levoxyl) 75 MCG tablet TAKE 1 TABLET BY MOUTH EVERY DAY IN THE MORNING ON EMPTY STOMACH 0 01/01/2022 Active Start: 07-29-2021 take 50 ug by mouth once daily in the morning Levothyroxine Active 50 MCG PO Every morning July 28, 2021 11:00pm take 1 tablet by jocelin th once daily in the morning loperamide hydrochloride 2 mg oral tablet (5 sources) Opioid Agonist Start: 03-19-2023 take 1 [...] Magnesium Oxide Discontinued 1 TAB PO Daily 60 30 December 26, 2016 11:47am April 17, [...] A DAY FOR 30 DAYS for 30 days Active omeprazole 40 mg delayed release oral capsule [...] Active Oxygen 4-6 liter s continuous Active prednisoLONE acetate 10 mg/ml ophthalmic suspension (1 source) Corticosteroid Start: 01-26-2023 prednisoLONE a cetate (Pred-Forte) 1 % ophthalmic suspension PLEASE SEE ATTACHED FOR DETAILED DIRECTIONS 0 01/26/2023 Active (20 sources) Active ProAir HFA 108 [...] Start: 07-29-2021 take 1 g by mouth three times daily Sucralfate Active 1 GM PO Three times daily July 28, 2021 11:00pm Start: 07-29-2021 take 1 g by mouth twice daily Sucralfate Active 1 GM PO Twice daily July 29, 2021 12:00am Start: 09-07-2019 take 1 tablet by jocelin th every eight hours Sucralfate 1 GM 1 tablet on an empty stomach Orally tid for 30 days August, Active sucralfate (Deepti fate) 1 g tablet every 12 (twelve) hours. 0 Active take 1 tablet by jocelin th [...] needed Orally three times a day Active triamcinolone acetonide 0.001 mg/mg topical ointment (3 sources) Corticosteroid Start: 04-28-2023 Triamcinolone Acetonide Active 1 APPLIC TOPICAL Twice daily April 28, 2023 12:00am apply to lower legs as discussed Vitamin D-3 1999 (20 sources) take 2 capsules by mouth once da marty take 2 capsules by mouth once da marty Vitamin D-3 1999 2 CAP Orally Once a day for 90 days Active take 2 capsules by mouth once da marty Vitamin D-3 1999 2 CAP Orally Once a day for [...] Drug Class(es) Dates Sig (Normalized) Sig (Original) allopurinol 300 mg oral tablet (16 sources) Xanthine Oxidase Inhibitor Start: 01-24-2018 End: 07-29-2021 take 300 mg by mouth once daily Allopurinol Discontinued 300 MG PO Daily January 23, 2018 11:00pm July 29, 2021 10:13am Asenapine Maleate (Saphris (Black Simon)) 5 mg Tablet, Sublingual (16 sources) Start: 01-24-2018 End: 08-16-2021 take 1 [...] Asenapine Maleate (Saphris) 5 mg Tablet, Sublingual (16 sources) Start: 08-16-2021 End: 09-26-2021 take 1 [...] 26, 2021 8:13am take 1 capsule by mo [facility] every twelve hours Celecoxib 200 MG 1 capsule with food Orally Twice a day Active clobetasol propionate 0.0005 mg/mg topical ointment (16 sources) Corticosteroid Start: 07-29-2021 End: 07-30-2022 Clobetasol [...] ml enoxaparin sodium 100 mg/ml prefilled syringe (16 sources) Low Molecular Weight Heparin Start: 12-19-2016 End: 12-26-2016 Enoxaparin (Lovenox) 30 mg/0.3 mL Syringe Discontinued 30 MG SUBCUT Q12H 60 December 18, 2016 11:00pm December 26, 2016 11:20am estrogens, conjugated (long-term) 0.3 mg oral tablet (16 sources) Estrogen Start: 01-24-2018 End: 07-29-2021 take [...] 19, 2016 12:00am December 26, 2016 12:47pm 3 ml insulin aspart, human 100 unt/ml pen injector (16 sources) Insulin Analog Start: 12-19-2016 End: 04-17-2017 Insulin Aspart U-100 (Novolog Flexpen U-100 Insulin) 100 unit/mL Insulin Pen Discontinued 0 UNITS SUBCUT 3X/Day with meals and bedtime 60 December 18, 2016 11:00pm April 17, 2017 10:02am ipratropium bromide 0.021 mg/actuat metered dose nasal spray (20 sources) Anticholinergic Start: 12-16-2016 End: 04-17-2017 Ipratropium [place] Discontinued 2 SPRAY INTRANASAL Twice daily December [...] December 05, 2022 12:43pm Start: 07-13-2013 End: 07-12-2023 take 1 capsule by mouth once daily Theophylline Discontinued 1 CAP PO Daily December 26, 2016 11:47am April 17, 2017 9:59am tiZANidine 4 mg oral tablet (20 sources) [...] Tizanidine Discontinued 1 TAB PO Twice daily December 26, 2016 11:47am April 17, 2017 9:58am take 1 tablet by jocelin th in the evening tiZANidine (Zanaflex) 4 MG tablet Take 4 mg by mouth in the evening. 0 Active 24 hr venlafaxine 150 mg extended release oral capsule (20 sources) Serotonin and Norepinephrine Reuptake Inhibitor Start: 12-16-2016 End: 04-17-2017 take 2 capsules by mouth once daily Venlafaxine Discontinued 2 CAP PO Daily December 26, 2016 11:47am [...] bedtime Zolpidem Discontinued 1 TAB PO Bedtime December 26, 2016 11:47am April 17, 2017 9:58am Problems Active Problems Problem Classification Problem Date Documented Da te Episodic/Chronic Abdominal pain (20 sources) Abdominal pain; Translations: [Unspecified abdominal pain] 08-16-2021 Episodic Acute and unspecified renal failure (16 sources) Injury of kidney; Translations: [Acute kidney failure, unspecified] 08-16-2021 Episodic Blindness and vision defects (16 sources) Visual hallucinations; Translations: [Visual hallucinations] 01-23-2017 Episodic Cataract (1 source) Unspecified cataract; Translations: [Unspecified cataract] Onset: 3 Chronic Chronic kidney disease (20 sources) Chronic kidney disease stage 3B ; Translations: [Stage 3b chronic kidney disease] 08-16-2021 Chronic Chronic obstructive pulmonary disease and bronchiectasis (20 sources) Chronic obstructive lung disease; Translations: [Chronic obstructive pulmonary disease, unspecified] Onset: 1 08-16-2021 Chronic Chronic ulcer of skin (20 sources) Chronic ulcer of skin of lower leg; Translations: [Non-pressure chronic ulcer of other part of left lower leg limited to breakdown of skin] Onset: 2 Resolved: 2 Chronic Deficiency and other anemia (16 sources) Iron deficiency anemia; Translations: [Iron deficiency anemia, unspecified] 10-24-2021 Episodic Deficiency and other anemia (11 sources) Iron deficiency anemia, unspecified; Translations: [Iron [...] [Chronic fatigue, unspecified] Chronic Malaise and fatigue (19 sources) Asthenia; Translations: [Other malaise] 08-16-2021 Episodic Mood disorders (20 sources) Major depression with psychotic features; Translations: [Major depressive disorder, single episode, severe with psychotic features] 08-16-2021 Chronic Neoplasms of unspecified nature or uncertain behavior (20 sources) Neuropathy; Translations: [Monoclonal gammopathy] Onset: 3 08-16-2021 Chronic Other aftercare (20 sources) Long-term current use of insulin; 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] Episodic Other aftercare (4 sources) Other care home (current) drug therapy Onset: 2 Resolved: 2 Episodic Other connective tissue disease (16 sources) Rhabdomyolysis; Translations: [Rhabdomyolysis] 08-16-2021 Episodic Other [...] Episodic Other diseases of veins and lymphatics (7 sources) Venous insufficiency (chronic) (peripheral); Translations: [Varicose veins of lower extremities with inflammation] Onset: 2 Resolved: 2 Episodic Other diseases of veins and lymphatics (15 sources) Stasis dermatitis; Translations: [Venous insufficiency (chronic) (peripheral)] 08-16-2021 Episodic Other diseases of veins and lymphatics (20 sources) Venous stasis edema of bilateral lower limbs; Translations: [Venous insufficiency (chronic) (peripheral)] Episodic Other diseases of veins and lymphatics (1 source) Peripheral venous insufficiency; Translations: [Venous insufficiency (chronic) (peripheral)] Episodic Other diseases of veins and lymphatics (1 source) Disorder of vein of lower extremity; Translations: [Venous insufficiency (chronic) (peripheral)] 08-16-2021 Episodic Other diseases of veins and lymphatics (1 source) Vascular insufficiency; Translations: [Venous insufficiency (chronic) (peripheral)] 05-12-2023 Episodic Other gastrointestinal disorders (3 sources) Irritable bowel syndrome; Translations: [Irritable bowel syndrome without diarrhea] 04-28-2023 Chronic Other gastrointestinal disorders (3 sources) Irritable bowel syndrome without diarrhea; Translations: [Irritable bowel syndrome] 04-28-2023 Chronic Other gastrointestinal disorders (16 sources) Diarrhea; Translations: [Diarrhea, unspecified] 08-16-2021 Episodic [...] Resolved: 2 Chronic Other nervous system disorders (16 sources) Metabolic encephalopathy; Translations: [Metabolic encephalopathy] 08-16-2021 [...] Chronic Other nutritional; endocrine; and metabolic disorders (16 sources) Hypomagnesemia; Translations: [Hypomagnesemia] 08-16-2021 Chronic Other nutritional; endocrine; and metabolic disorders (14 sources) Morbid (severe) obesity due to excess calories; Translations: [Morbid obesity] 10-23-2021 Chronic Other screening for suspected conditions (not mental disorders or infectious disease) (8 sources) Encounter for screening mammogram for malignant neoplasm of breast; Translations: [Encounter for other screening for malignant neoplasm of breast] Onset: 1 Resolved: 1 Episodic Other skin disorders (16 sources) Hemosiderin pigmentation of skin; Translations: [Other specified disorders of pigmentation] 08-16-2021 Episodic Peripheral and visceral atherosclerosis (11 sources) Peripheral vascular disease; Translations: [Peripheral vascular disease, unspecified] Onset: 3 Chronic Residual codes; unclassified (20 sources) Obstructive sleep apnea syndrome; Translations: [Obstructive sleep apnea (adult) (pediatric)] Onset: 1 08-16-2021 Chronic Residual codes; unclassified (4 sources) Obstructive sleep apnea (adult) (pediatric); Translations: [Obstructive sleep apnea (adult)(pediatric)] Onset: 2 Resolved: 2 Chronic Residual codes; unclassified (16 sources) Peripheral edema; Translations: [Edema, unspecified] 08-16-2021 Episodic Residual codes; unclassified (3 sources) Localized edema; Translations: [Edema] 04-28-2023 Episodic Respiratory failure; insufficiency; arrest (adult) (20 sources) Chronic hypercapnic respiratory failure; Translations: [Chronic [...] [LOW BACK PAIN, UNSPECIFIED] Onset: 3 Unclassified (6 sources) Inflammatory disorder; Translations: [Inflammation] 04-28-2023 Unclassified (1 source) Non-pressure chronic ulcer of unspecified part of right lower leg limited to breakdown of skin; Translations: [Non-pressure chronic ulcer of unspecified part of right lower leg limited to breakdown of skin] Onset: 4 Unclassified (1 source) Varicose veins of bilateral lower extremities with other complications; Translations: [Varicose veins of bilateral lower extremities with other complications] Onset: 4 Unclassified (1 source) Pain in left hip; Translations: [Pain in left hip] Onset: 3 Unclassified (1 source) Varicose veins of bilateral lower extremities with pain; Translations: [Varicose veins of bilateral lower extremities with pain] Onset: 3 Unclassified (1 source) Encounter for screening mammogram for malignant neoplasm of breast; Translations: [Encounter for screening mammogram for malignant neoplasm of breast] Onset: 3 Urinary tract infections (17 sources) Urinary tract infectious disease; Translations: [Urinary [...] Resolved: 12-23-2021 Episodic Other aftercare (1 source) 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 Onset: 04-02-2021 Resolved: [...] Name Value Interpretation Reference Range Facility US venous duplex LE BIon US venous duplex LE BI [facility] Main [address] [address] Ultrasound Report Signed Patient: Kelsea Turcios MR#: [id number] 58 : 1960 Acct:[id number] Age/Sex: 62 / F ADM Date: 05/08/23 Loc: Room: Type: [facility] Attending Dr: Erica Diehl APRN Ordering Provider: Erica Diehl APRN Date of Service: 05/08/23 US/US venous duplex LE BI: BLE ULCERS BLE VARICOSE VEINS BLE EDEMA Copies to: Ercia Diehl APRN BILATERAL LOWER EXTREMITY VENOUS DUPLEX INDICATION: Lower extremity ulcers. PROCEDURE: Color-flow duplex scanning is used to interrogate the deep venous system of the right and left lower extremities. The common femoral vein, femoral vein and popliteal vein show good compressibility with normal proximal and distal augmentation. The calf veins are compressible. US/US venous duplex LE BI IMPRESSION: NO EVIDENCE FOR DEEP VEIN THROMBOSIS OR PROXIMAL SUPERFICIAL THROMBOPHLEBITIS IN THE RIGHT OR LEFT LOWER EXTREMITY. Severe reflux was identified in the left common femoral vein and saphenofemoral junction. Continuous flow was identified in the right greater saphenous vein. The right greater saphenous vein was patent from the groin to the ankle. Size was more than 2-3 times enlarged. Impression dictated by: Cresencio Chappell MD05/09/2023 3:57 PM Dictation Location: [place] [address] Tech: Elsie Britt Transcribed By: RACHEL 05/09/23 155 Dictated By: Cresencio Chappell MD 05/09/23 1557 Signed By: 05/09/23 1557 [facility] US arterial pvr rest Melyssa US arterial pvr rest LE [facility] Main [address] [address] Ultrasound Report Signed Patient: Kelsea Turcios MR#: [id number] 58 : 1960 Acct:[id number] Age/Sex: 62 / F ADM Date: 02/19/23 Loc: Room: Type: [facility] Attending Dr: Peri Tyson DO Ordering Provider: [...] Domenico Whitmore M.D.02/20/2023 10:32 AM Dictation Location: [place] [address] Tech: Liyah Au Transcribed By: RACHEL 02/20/23 1032 Dictated By: Domenico Whitmore MD 02/20/23 1031 Signed By: 02/20/23 1032 [facility] Activated partial thrombopla stin time (aPTT) in platelet poor plasma by coagulation aOrdered By: Roxane Bills on 02-12-2023 aPTT Coag (PPP) [Time] 23.4 s 25.1-36.5 [facility] Comment on above: A hematocrit value g reater than 55% may lead to inaccurate results in coagulation testing. Patients having hematocrit values >55% require a special collection tube for coagulation studies. Please contact the laboratory at [phone] for redraw instructions. Basophils Auto (Bld) [#/Vol] Ordered By: Roxane Bills on 02-12-2023 Basophils (Bld) [#/Vol] 0.1 10*3/uL 0.0-0.2 [facility] Basophils/100 WBC Auto (Bld) Ordered By: Roxane Bills on 02-12-2023 Basophils/100 WBC (Bld) 1.3 % . 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 CT GUIDED [...] local anesthesia. Utilizing CT guidance, an 11-gauge OnControl biopsy needle was advanced into the right [...] marrow biopsy. Impression dictated by: Manish Mccurdy Jr. D.OJane02/12/2023 11:44 AM Dictation Location: [place] [address] Transcribed By: [facility] 02/12/23 1144 Dictated By: Manish Mccurdy Jr, 02/12/23 1137 Signed By: 02/12/23 1144 Normal [facility] Coagulation Profileon 2022 aPTT Coag (Bld) [Time] 23.4 s Low 25.1-36.5 [facility] Comment on above: Order Comment: PT IS FASTING Result Comment: A he matocrit value greater than 55% may lead to inaccurate results in coagulation testing. Patients having hematocrit values >55% require a special collection tube for coagulation studies. Please contact the laboratory at [phone] for redraw instructions. PERFORMED BY: [place] [address] PATHOLOGIST [employer] AQUILINO JACK M.D. Performed By: #### R ENAL, [id number], LIPID #### [facility] [address] [place] [address] #### CPEP #### [facility] , INR Coag (PPP) [Relative time] 1.0 {INR} Normal [facility] Comment on above: Order Comment: PT IS FASTING Result Comment: INR Therapeutic Range A) Pre- [...] valves: 3 - 4.5 Performed By: #### R ENAL, [id number], LIPID #### [facility] [address] [place] [address] [place] #### CPEP #### [facility] , PT Coag (PPP) [Time] 12.4 s Normal 9.0-12.9 [facility] Comment on above: Order Comment: PT IS FASTING Result Comment: A he matocrit value greater than 55% may lead to inaccurate results in coagulation testing. Patients having hematocrit values >55% require a special collection tube for coagulation studies. Please contact the laboratory at [phone] for redraw instructions. Performed By: #### R ENAL, [id number], LIPID #### [address] #### CPEP #### [facility] , Complete Blood Count Auto Di ffon 02-12-2023 Basophils (Bld) [#/Vol] 0.1 10*3/uL Normal 0.0-0.2 [facility] Comment on above: Order Comment: PT IS FASTING Result Comment: PERF ORMED BY: [place] [address] PATHOLOGIST [employer] AQUILINO JACK M.D. Performed By: #### R ENAL, [id number], LIPID #### [address] #### CPEP #### [facility] , Basophils/100 WBC (Bld) 1.3 % Normal . [facility] Comment on above: Order Comment: PT IS FASTING Performed By: #### R ENAL, [id number], LIPID #### [address] #### CPEP #### [facility] , Eosinophils (Bld) [#/Vol] 0.9 10*3/uL High 0.0-0.45 [facility] Comment on above: Order Comment: PT IS FASTING Performed By: #### R ENAL, [id number], LIPID #### [address] #### CPEP #### [facility] , Eosinophils/100 WBC (Bld) 7.7 % Normal . [facility] Comment on above: Order Comment: PT IS FASTING Performed By: #### R ENAL, [id number], LIPID #### [place] [address] [place] #### CPEP #### [facility] , Erythrocyte distribution width (RBC) [Ratio] 14.1 % Normal 11.9-15.3 [facility] Comment on above: Order Comment: PT IS FASTING Performed By: #### R ENAL, [id number], LIPID #### [address] #### CPEP #### [facility] , Hematocrit (Bld) [Volume fraction] 38.9 % Normal 34.0-46.4 [facility] Comment on above: Order Comment: PT IS FASTING Performed By: #### R ENAL, [id number], LIPID #### [address] #### CPEP #### [facility] , Hemoglobin (Bld) [Mass/Vol] 12.8 g/dL Normal 11.8-15.4 [facility] Comment on above: Order Comment: PT IS FASTING Performed By: #### R ENAL, [id number], LIPID #### [address] #### CPEP #### [facility] , Lymphocytes (Bld) [#/Vol] 2.8 10*3/uL Normal 1.00-4.8 [facility] Comment on above: Order Comment: PT IS FASTING Performed By: #### R ENAL, [id number], LIPID #### [facility] [address] [place] [address] #### CPEP #### [facility] , Lymphocytes/100 WBC (Bld) 24.2 % Normal . [facility] Comment on above: Order Comment: PT IS FASTING Performed By: #### R ENAL, [id number], LIPID #### [address] #### CPEP #### [facility] , MCH (RBC) [Entitic mass] 30.0 pg Normal 24.7-34.3 [facility] Comment on above: Order Comment: PT IS FASTING Performed By: #### R ENAL, [id number], LIPID #### [facility] [address] [place] [address] #### CPEP #### [facility] , MCV (RBC) [Entitic vol] 91.2 fL Normal 80-100 [facility] Comment on above: Order Comment: PT IS FASTING Performed By: #### R ENAL, [id number], LIPID #### [address] #### CPEP #### [facility] , Mean Corpuscular HGB Conc 32.9 g/dL Normal 32.0-35.0 [facility] Comment on above: Order Comment: PT IS FASTING Performed By: #### R ENAL, [id number], LIPID #### [address] #### CPEP #### [facility] , Monocytes (Bld) [#/Vol] 1.0 10*3/uL High 0.0-0.8 [facility] Comment on above: Order Comment: PT IS FASTING Performed By: #### R ENAL, [id number], LIPID #### [address] #### CPEP #### [facility] , Monocytes/100 WBC (Bld) 9.0 % Normal . [facility] Comment on above: Order Comment: PT IS FASTING Performed By: #### R ENAL, [id number], LIPID #### [facility] [address] [place] [address] #### CPEP #### [facility] , Neutrophils (Bld) [#/Vol] 6.8 10*3/uL Normal 1.8-7.7 [facility] Comment on above: Order Comment: PT IS FASTING Performed By: #### R ENAL, [id number], LIPID #### [address] #### CPEP #### [facility] , Neutrophils/100 WBC (Bld) 57.8 % Normal . [facility] Comment on above: Order Comment: PT IS FASTING Performed By: #### R ENAL, [id number], LIPID #### [facility] [address] [place] [address] #### CPEP #### [facility] , NRBC% 0.1 /100{WBC} Normal 0-0.5 [facility] Comment on above: Order Comment: PT IS FASTING Performed By: #### R ENAL, [id number], LIPID #### [address] #### CPEP #### [facility] , Platelet mean volume (Bld) [Entitic vol] 7.0 fL Normal 6.3-10.7 [facility] Comment on above: Order Comment: PT IS FASTING Performed By: #### R ENAL, [id number], LIPID #### [address] #### CPEP #### [facility] , Platelets (Bld) [#/Vol] 334 10*3/uL Normal 150-450 [facility] Comment on above: Order Comment: PT IS FASTING Performed By: #### R ENAL, [id number], LIPID #### [place] [address] [place] #### CPEP #### [facility] , RBC (Bld) [#/Vol] 4.27 10*6/uL Normal 3.60-5.00 [facility] Comment on above: Order Comment: PT IS FASTING Performed By: #### R ENAL, [id number], LIPID #### [facility] [address] [place] [address] [place] #### CPEP #### [facility] , WBC (Bld) [#/Vol] 11.7 10*3/uL High 3.8-11.6 [facility] Comment on above: Order Comment: PT IS FASTING Performed By: #### R ENAL, [id number], LIPID #### [facility] [address] #### CPEP #### [facility] , Eosinophils Auto (Bld) [#/Vo l]Ordered By: Roxane Bills on 02-12-2023 Eosinophils (Bld) [#/Vol] 0.9 10*3/uL 0.0-0.45 [facility] Eosinophils/100 WBC Auto (Bl d)Ordered By: Roxane Bills on 02-12-2023 Eosinophils/100 WBC (Bld) 7.7 % . [facility] Erythrocyte distribution wid th Auto (RBC) [Ratio]Ordered By: Roxane Bills on 02-12-2023 Erythrocyte distribution width (RBC) [Ratio] 14.1 % 11.9-15.3 [facility] Hematocrit Auto (Bld) [Volum e fraction]Ordered By: Roxane Bills on 02-12-2023 Hematocrit (Bld) [Volume fraction] 38.9 % 34.0-46.4 [facility] Hemoglobin [Mass/volume] in BloodOrdered By: Roxane Bills on 02-12-2023 Hemoglobin (Bld) [Mass/Vol] 12.8 g/dL 11.8-15.4 [facility] INR in Platelet poor plasma by Coagulation assayOrdered By: Roxane Bills on 02-12-2023 INR Coag (PPP) [Relative time] 1.0 {INR} [facility] Comment on above: INR Therapeutic Rang e [...] [id number] Received: 02/12/23 Status: [facility]NN[place] Num: [id number] Spec Type: Bone Marro Subm Dr: Manish Mccurdy, Jr, DO Tissues: A Bone Marrow Aspirate (Clot) (RT ILIAC) B Bone Marrow Biopsy/Core (RT ILIAC) Procedures: Reticulum I, Peripheral Smr, Iron/2, HE/4, Gross/Micro L4/2, Bm Smear/2, CD138/2, CD20/2, CD3/2, CD31, CD34, CD56/2, CD68, E CADHERIN, Decalcification, IHC First AB, IHC Add AB/7, PAS - Hemat/2, Bone Marrow TP, GIEMSA STN/7 Age/ Patient Sex Location Account Attending Physician Kelsea Turcios 62/F CT [id number] Roxane Bills MD SPEC NUM: [id number] RECD: 02/12/23 STATUS: [place] NUM: [id number] KEYSHA: 02/12/[address]: Manish Mccurdy Jr, DO ENTERED: 02/12/[address] [facility] DR: Roxane Bills MD SPEC TYPE: Bone [...] USS/11, Decalcification, IHC First AB, IHC Add AB/7, PAS - Hemat/2, Bone Marrow TP, GIEMSA STN/7 Supplemental Report Addendum 1 Entered: 02/25/23 SUPPLEMENTAL FOR CYTOGENETICS -NORMAL FEMALE KARYOTYPE: 46, XX[20] NOTE: -Normal cytogenetics study, and no change of initial diagnosis Addendum Signed (signature on file) Jolanta Lemon MD 02/25/23 3637 Specimen: [id number] Received: 02/12/23 Status: [place] Num: [id number] Spec Type: Bone Marro Subm Dr: Manish Mccurdy, Jr, DO Tissues: A Bone Marrow Aspirate (Clot) (RT ILIAC) B Bone Marrow Biopsy/Core (RT ILIAC) Procedures: Reticulum I, Peripheral Smr, Iron/2, HE/4, Gross/Micro L4/2, Bm Smear/2, CD138/2, CD20/2, CD3/2, CD31, CD34, CD56/2, CD68, E CADHERIN, Decalcification, IHC First AB, IHC Add AB/7, PAS - Hemat/2, Bone Marrow TP, GIEMSA STN/7 Patient: Kelsea Turcios [id number] (Continued) Specimen: [id number] Received: 02/12/23 (Continued) Signed (signature on file) Jolanta Lemon MD 02/22/23 1907 Specimen: [id number] Received: 02/12/23 Status: [place] Num: [id number] Spec Type: Bone Marro Subm Dr: Manish Mccurdy, Jr, DO Tissues: A Bone Marrow Aspirate (Clot) (RT ILIAC) B Bone Marrow Biopsy/Core (RT ILIAC) Procedures: Reticulum I, Peripheral Smr, Iron/2, HE/4, Gross/Micro L4/2, Bm Smear/2, CD138/2, CD20/2, CD3/2, CD31, CD34, CD56/2, CD68, E CADHERIN, Decalcification, IHC First AB, IHC Add AB/7, PAS - Hemat/2, Bone Marrow TP, GIEMSA STN/7 Patient: Kelsea Turcios [id number] (Continued) Specimen: [id number] Received: 02/12/23 (Continued) Pathological Diagnosis AMB, right [...] visual estimation, (more content not included)... Normal [facility] Leukocytes [#/volume] correc shan for nucleated erythrocytes in Blood by Automated counOrdered By: Roxane Bills on 02-12-2023 WBC corrected for nucl RBC Auto (Bld) [#/Vol] 11.7 10*3/uL 3.8-11.6 [facility] Lymphocytes Auto (Bld) [#/Vo l]Ordered By: Roxane Bills on 02-12-2023 Lymphocytes (Bld) [#/Vol] 2.8 10*3/uL 1.00-4.8 [facility] Lymphocytes/100 WBC Auto (Bl d)Ordered By: Roxane Bills on 02-12-2023 Lymphocytes/100 WBC (Bld) 24.2 % . [facility] MCH Auto (RBC) [Entitic mass ]Ordered By: Roxane Bills on 02-12-2023 MCH (RBC) [Entitic mass] 30.0 pg 24.7-34.3 [facility] MCHC Auto (RBC) [Mass/Vol]Or dered By: Roxane Bills on 02-12-2023 MCHC (RBC) [Mass/Vol] 32.9 g/dL 32.0-35.0 [facility] MCV Auto (RBC) [Entitic vol] Ordered By: Roxane Bills on 02-12-2023 MCV (RBC) [Entitic vol] 91.2 fL 80-100 [facility] Monocytes Auto (Bld) [#/Vol] Ordered By: Roxane Bills on 02-12-2023 Monocytes (Bld) [#/Vol] 1.0 10*3/uL 0.0-0.8 [facility] Monocytes/100 WBC Auto (Bld) Ordered By: Roxane Bills on 02-12-2023 Monocytes/100 WBC (Bld) 9.0 % . [facility] Neutrophils Auto (Bld) [#/Vo l]Ordered By: Roxane Bills on 02-12-2023 Neutrophils (Bld) [#/Vol] 6.8 10*3/uL 1.8-7.7 [facility] Neutrophils/100 WBC Auto (Bl d)Ordered By: Roxane Bills on 02-12-2023 Neutrophils/100 WBC (Bld) 57.8 % . [facility] Nucleated erythrocytes [Pres ence] in Blood by Automated countOrdered By: Roxane Bills on 02-12-2023 Nucleated RBC Auto Ql (Bld) 0.1 /100{WBC} 0-0.5 [facility] Platelet mean volume Auto (B ld) [Entitic vol]Ordered By: Roxane Bills on 02-12-2023 Platelet mean volume (Bld) [Entitic vol] 7.0 fL 6.3-10.7 [facility] Platelets Auto (Bld) [#/Vol] Ordered By: Roxane Bills on 02-12-2023 Platelets (Bld) [#/Vol] 334 10*3/uL 150-450 [facility] Prothrombin time (PT)Ordered By: Roxane Bills on 02-12-2023 PT Coag (PPP) [Time] 12.4 s 9.0-12.9 [facility] Comment on above: A hematocrit value g reater than 55% may lead to inaccurate results in coagulation testing. Patients having hematocrit values >55% require a special collection tube for coagulation studies. Please contact the laboratory at [phone] for redraw instructions. RBC Auto (Bld) [#/Vol]Ordere d By: Roxane Bills on 02-12-2023 RBC (Bld) [#/Vol] 4.27 10*6/uL 3.60-5.00 [facility] WBC Auto (Bld) [#/Vol]Ordere d By: Roxane Bills on 02-12-2023 WBC (Bld) [#/Vol] 11.7 10*3/uL 3.8-11.6 [facility] XR bone surveyon 02-06-2023 XR bone survey [facility] Main [address] [address] XRay Report Signed Patient: Kelsea Turcios MR#: [id number] 58 : 1960 Acct:[id number] Age/Sex: 62 / F ADM Date: 02/06/23 Loc: XT Room: Type: [facility] RCR Attending Dr: Roxane Bills MD Copies to: [...] Domenico Brown M.D.02/06/2023 4:08 PM Dictation Location: [place] [address] Transcribed By: [facility] 02/06/23 160 Dictated By: Domenico Brown DO 02/06/23 1606 Signed By: 02/06/23 1608 Normal [facility] MR hip LT wo conon MR hip LT wo con [facility] [address] [place] [id number] MRI Report Signed Patient: Kelsea Turcios MR#: [id number] 58 : 1960 Acct:[id number] Age/Sex: 62 / F ADM Date: 02/04/23 Loc: [facility] Room: Type: [facility] CLI Attending Dr: Peri Tyson DO Copies [...] change. Impression dictated by: Manish Mccurdy Jr., D.O.02/04/2023 12:35 PM Dictation Location: [place] [address] Transcribed By: [facility] 02/04/23 1235 Dictated By: Manish Mccurdy Jr, DO 02/04/23 1230 Signed By: 02/04/23 1235 Normal [facility] Alanine aminotransferase [En zymatic activity/volume] in Serum or PlasmaOrdered By: Roxane Bills on 01-22-2023 ALT [Catalytic activity/Vol] 47 U/L 7-52 [facility] Albumin [Mass/volume] in Ser um or Plasma by Bromocresol green (BCG) dye binding methoOrdered By: Roxane Bills on 01-22-2023 Albumin BCG dye [Mass/Vol] 3.7 g/dL 3.5-5.7 [facility] Alkaline phosphatase [Enzyma tic activity/volume] in Serum or PlasmaOrdered By: Roxane Bills on 01-22-2023 ALP [Catalytic activity/Vol] 169 U/L 34-104 [facility] Aspartate aminotransferase [ Enzymatic activity/volume] in Serum or PlasmaOrdered By: Roxane Bills on 01-22-2023 AST [Catalytic activity/Vol] 48 U/L 13-39 [facility] Basophils Auto (Bld) [#/Vol] Ordered By: Roxane Bills on 01-22-2023 Basophils (Bld) [#/Vol] 0.1 10*3/uL 0.0-0.2 [facility] Basophils/100 WBC Auto (Bld) Ordered By: Roxane Bills on 01-22-2023 Basophils/100 WBC (Bld) 0.5 % . [facility] Bilirubin.total [Mass/volume ] in Serum or PlasmaOrdered By: Roxane Bills on 01-22-2023 Bilirubin [Mass/Vol] 0.4 mg/dL 0.3-1.0 [facility] Calcium [Mass/volume] in Ser um or PlasmaOrdered By: Roxane Bills on 01-22-2023 Calcium [Mass/Vol] 8.6 mg/dL 8.6-10.3 [facility] Carbon dioxide, total [Moles /volume] in Serum or PlasmaOrdered By: Roxane Bills on 01-22-2023 CO2 [Moles/Vol] 32.1 mmol/L 21.0-31.0 [facility] Chloride [Moles/volume] in S logan or PlasmaOrdered By: Roxane Bills on 01-22-2023 Chloride [Moles/Vol] 100 mmol/L 98-107 [facility] Complete Blood Count Auto Di ffon 01-22-2023 Basophils (Bld) [#/Vol] 0.1 10*3/uL Normal 0.0-0.2 [facility] Comment on above: Result Comment: PERF ORMED BY: [place] [address] PATHOLOGIST [employer] AQUILINO JACK M.D. Performed By: #### K APPA, MITCH SERUM #### [facility] , #### FE and TIBC, CMP, CBC, CLEOPATRA #### [facility] [address] Basophils/100 WBC (Bld) 0.5 % Normal . [facility] Comment on above: Performed By: #### K APPA, MITCH SERUM #### [facility] , #### FE and TIBC, CMP, CBC, CLEOPATRA #### [facility] [address] [place] [address] [place] Eosinophils (Bld) [#/Vol] 0.5 10*3/uL High 0.0-0.45 [facility] Comment on above: Performed By: #### K APPA, MITCH SERUM #### [facility] , #### FE and TIBC, CMP, CBC, CLEOPATRA #### [address] Eosinophils/100 WBC (Bld) 4.2 % Normal . [facility] Comment on above: Performed By: #### K APPA, MITCH SERUM #### [facility] , #### FE and TIBC, CMP, CBC, CLEOPATRA #### [facility] [address] [place] [address] Erythrocyte distribution width (RBC) [Ratio] 14.2 % Normal 11.9-15.3 [facility] Comment on above: Performed By: #### K APPA, MITCH SERUM #### [facility] , #### FE and TIBC, CMP, CBC, CLEOPATRA #### [facility] [address] [place] [address] Hematocrit (Bld) [Volume fraction] 37.8 % Normal 34.0-46.4 [facility] Comment on above: Performed By: #### K APPA, MITCH SERUM #### [facility] , #### FE and TIBC, CMP, CBC, CLEOPATRA #### [address] Hemoglobin (Bld) [Mass/Vol] 12.3 g/dL Normal 11.8-15.4 [facility] Comment on above: Performed By: #### K APPA, MITCH SERUM #### [facility] , #### FE and TIBC, CMP, CBC, CLEOPATRA #### [facility] [address] [place] [address] Lymphocytes (Bld) [#/Vol] 3.2 10*3/uL Normal 1.00-4.8 [facility] Comment on above: Performed By: #### K APPA, MITCH SERUM #### [facility] , #### FE and TIBC, CMP, CBC, CLEOPATRA #### [address] Lymphocytes/100 WBC (Bld) 25.5 % Normal . [facility] Comment on above: Performed By: #### K APPA, MITCH SERUM #### [facility] , #### FE and TIBC, CMP, CBC, CLEOPATRA #### [address] MCH (RBC) [Entitic mass] 30.0 pg Normal 24.7-34.3 [facility] Comment on above: Performed By: #### K APPA, MITCH SERUM #### [facility] , #### FE and TIBC, CMP, CBC, CLEOPATRA #### [address] MCV (RBC) [Entitic vol] 91.9 fL Normal 80-100 [facility] Comment on above: Performed By: #### K APPA, MITCH SERUM #### [facility] , #### FE and TIBC, CMP, CBC, CLEOPATRA #### [address] Mean Corpuscular HGB Conc 32.7 g/dL Normal 32.0-35.0 [facility] Comment on above: Performed By: #### K APPA, MITCH SERUM #### [facility] , #### FE and TIBC, CMP, CBC, CLEOPATRA #### [address] Monocytes (Bld) [#/Vol] 0.7 10*3/uL Normal 0.0-0.8 [facility] Comment on above: Performed By: #### K APPA, MITCH SERUM #### [facility] , #### FE and TIBC, CMP, CBC, CLEOPATRA #### [address] [place] [address] [place] Monocytes/100 WBC (Bld) 5.6 % Normal . [facility] Comment on above: Performed By: #### K APPA, MITCH SERUM #### [facility] , #### FE and TIBC, CMP, CBC, CLEOPATRA #### [address] Neutrophils (Bld) [#/Vol] 8.0 10*3/uL High 1.8-7.7 [facility] Comment on above: Performed By: #### K APPA, MITCH SERUM #### [facility] , #### FE and TIBC, CMP, CBC, CLEOPATRA #### [address] Neutrophils/100 WBC (Bld) 64.2 % Normal . [facility] Comment on above: Performed By: #### K APPA, MITCH SERUM #### [facility] , #### FE and TIBC, CMP, CBC, CLEOPATRA #### [address] NRBC% 0.0 /100{WBC} Normal 0-0.5 [facility] Comment on above: Performed By: #### K APPA, MITCH SERUM #### [facility] , #### FE and TIBC, CMP, CBC, CLEOPATRA #### [address] Platelet mean volume (Bld) [Entitic vol] 7.0 fL Normal 6.3-10.7 [facility] Comment on above: Performed By: #### K APPA, MITCH SERUM #### [facility] , #### FE and TIBC, CMP, CBC, CLEOPATRA #### [address] Platelets (Bld) [#/Vol] 299 10*3/uL Normal 150-450 [facility] Comment on above: Performed By: #### K APPA, MITCH SERUM #### [facility] , #### FE and TIBC, CMP, CBC, CLEOPATRA #### [address] RBC (Bld) [#/Vol] 4.11 10*6/uL Normal 3.60-5.00 [facility] Comment on above: Performed By: #### K APPA, MITCH SERUM #### [facility] , #### FE and TIBC, CMP, CBC, CLEOPATRA #### [address] WBC (Bld) [#/Vol] 12.4 10*3/uL High 3.8-11.6 [facility] Comment on above: Performed By: #### K APPA, MITCH SERUM #### [facility] , #### FE and TIBC, CMP, CBC, CLEOPATRA #### [address] Comprehensive Metabolic Pane heriberto 01-22-2023 Albumin [Mass/Vol] 3.7 g/dL Normal 3.5-5.7 [facility] Comment on above: Performed By: #### K APPA, MITCH SERUM #### [facility] , #### FE and TIBC, CMP, CBC, CLEOPATRA #### [address] Albumin/Globulin [Mass ratio] 0.9 {ratio} Normal [facility] Comment on above: Performed By: #### K APPA, MITCH SERUM #### [facility] , #### FE and TIBC, CMP, CBC, CLEOPATRA #### [facility] [address] [place] [address] ALP [Catalytic activity/Vol] 169 U/L High 34-104 [facility] Comment on above: Performed By: #### K APPA, MITCH SERUM #### [facility] , #### FE and TIBC, CMP, CBC, CLEOPATRA #### [address] ALT [Catalytic activity/Vol] 47 U/L Normal 7-52 [facility] Comment on above: Performed By: #### K APPA, MITCH SERUM #### [facility] , #### FE and TIBC, CMP, CBC, CLEOPATRA #### [address] Anion gap [Moles/Vol] 13.1 mmol/L Normal 6.0-15.0 [facility] Comment on above: Performed By: #### K APPA, MITCH SERUM #### [facility] , #### FE and TIBC, CMP, CBC, CLEOPATRA #### [address] AST [Catalytic activity/Vol] 48 U/L High 13-39 [facility] Comment on above: Performed By: #### K APPA, MITCH SERUM #### [facility] , #### FE and TIBC, CMP, CBC, CLEOPATRA #### [address] Bilirubin [Mass/Vol] 0.4 mg/dL Normal 0.3-1.0 [facility] Comment on above: Performed By: #### K APPA, MITCH SERUM #### [facility] , #### FE and TIBC, CMP, CBC, CLEOPATRA #### [address] Calcium [Mass/Vol] 8.6 mg/dL Normal 8.6-10.3 [facility] Comment on above: Performed By: #### K APPA, MITCH SERUM #### [facility] , #### FE and TIBC, CMP, CBC, CLEOPATRA #### [facility] [address] [place] [address] [place] Chloride [Moles/Vol] 100 mmol/L Normal 98-107 [facility] Comment on above: Performed By: #### K APPA, MITCH SERUM #### [facility] , #### FE and TIBC, CMP, CBC, CLEOPATRA #### [facility] [address] CO2 [Moles/Vol] 32.1 mmol/L High 21.0-31.0 [facility] Comment on above: Performed By: #### K APPA, MITCH SERUM #### [facility] , #### FE and TIBC, CMP, CBC, CLEOPATRA #### [facility] [address] Creatinine [Mass/Vol] 1.37 mg/dL High 0.60-1.20 [facility] Comment on above: Performed By: #### K APPA, MITCH SERUM #### [facility] , #### FE and TIBC, CMP, CBC, CLEOPATRA #### [facility] [address] Creatinine Clr Calc Pharmacy 44.97 [facility] Comment on above: Performed By: #### K APPA, MITCH SERUM #### [facility] , #### FE and TIBC, CMP, CBC, CLEOPATRA #### [facility] [address] GFR/1.73 sq M.predicted MDRD (S/P/Bld) [Vol rate/Area] 43.118 mL/min/{1.73_m2} [facility] Comment on above: Performed By: #### K APPA, MITCH SERUM #### [facility] , #### FE and TIBC, CMP, CBC, CLEOPATRA #### [facility] [address] Globulin (S) [Mass/Vol] 4.2 g/dL Normal [facility] Comment on above: Performed By: #### K APPA, MITCH SERUM #### [facility] , #### FE and TIBC, CMP, CBC, CLEOPATRA #### [facility] [address] [place] [address] [place] Glucose [Mass/Vol] 199 mg/dL High 70-100 [facility] Comment on above: Result Comment: [facility] Glucose Reference Range is dependent on time and content of last meal. Glucose of more than 200 mg/dL in a nonstressed, ambulatory subject supports the diagnosis of Diabetes Mellitus. ADA recommended reference range Performed By: #### K APPA, MITCH SERUM #### [facility] , #### FE and TIBC, CMP, CBC, CLEOPATRA #### [address] Potassium [Moles/Vol] 4.2 mmol/L Normal 3.5-5.1 [facility] Comment on above: Performed By: #### K APPA, MITCH SERUM #### [facility] , #### FE and TIBC, CMP, CBC, CLEOPATRA #### [address] Protein [Mass/Vol] 7.9 g/dL Normal 6.4-8.9 [facility] Comment on above: Performed By: #### K APPA, MITCH SERUM #### [facility] , #### FE and TIBC, CMP, CBC, CLEOPATRA #### [place] [address] [place] Sodium [Moles/Vol] 141 mmol/L Normal 136-145 [facility] Comment on above: Performed By: #### K APPA, MITCH SERUM #### [facility] , #### FE and TIBC, CMP, CBC, CLEOPATRA #### [address] Urea nitrogen [Mass/Vol] 13 mg/dL Normal 7-25 [facility] Comment on above: Performed By: #### K APPA, MITCH SERUM #### [facility] , #### FE and TIBC, CMP, CBC, CLEOPATRA #### [facility] [address] Creatinine [Mass/volume] in Serum or PlasmaOrdered By: Roxane Bills on 01-22-2023 Creatinine [Mass/Vol] 1.37 mg/dL 0.60-1.20 [facility] Eosinophils Auto (Bld) [#/Vo l]Ordered By: Roxane Bills on 01-22-2023 Eosinophils (Bld) [#/Vol] 0.5 10*3/uL 0.0-0.45 [facility] Eosinophils/100 WBC Auto (Bl d)Ordered By: Roxane Bills on 01-22-2023 Eosinophils/100 WBC (Bld) 4.2 % . [facility] Erythrocyte distribution wid th Auto (RBC) [Ratio]Ordered By: Roxane Bills on 01-22-2023 Erythrocyte distribution width (RBC) [Ratio] 14.2 % 11.9-15.3 [facility] Ferritinon 01-22-2023 Ferritin [Mass/Vol] 192.2 ng/mL Normal 11.0-306.8 [facility] Comment on above: Result Comment: PERF ORMED BY: [place] [address] PATHOLOGIST [employer] AQUILINO JACK M.D. Performed By: #### K APPA, MITCH SERUM #### [facility] , #### FE and TIBC, CMP, CBC, CLEOPATRA #### [facility] [address] Ferritin [Mass/volume] in Se rum or PlasmaOrdered By: Roxane Bills on 01-22-2023 Ferritin [Mass/Vol] 192.2 ng/mL 11.0-306.8 [facility] Free K+L LT Chains, Qn, Son 01-22-2023 Free Black Sands Light Chains, S 237.9 mg/L High 3.3-19.4 [facility] Comment on above: Performed By: #### K APPA, MITCH SERUM #### [facility] , #### FE and TIBC, CMP, CBC, CLEOPATRA #### [facility] [address] Free Lambda Light Chains, S 38.0 mg/L High 5.7-26.3 [facility] Comment on above: Performed By: #### K APPA, MITCH SERUM #### [facility] , #### FE and TIBC, CMP, CBC, CLEOPATRA #### [facility] [address] Black Sands/Lambda Ratio, S 6.26 High 0.26-1.65 [facility] Comment on above: Result Comment: Perf ormed at: CB - [facility] [address] [id number] Waist Pleater: Jhoan Rich PhD, Phone: [phone] PERFORMED BY: [place] [address] PATHOLOGIST [employer] AQUILINO JACK M.D. Performed By: #### K APPA, MITCH SERUM #### [facility] , #### FE and TIBC, CMP, CBC, CLEOPATRA #### [facility] [address] [place] [address] Globulin Calc (S) [Mass/Vol] Ordered By: Roxane Bills on 01-22-2023 Globulin (S) [Mass/Vol] 4.2 g/dL [facility] Glucose [Mass/volume] in Ser um or PlasmaOrdered By: Roxane Bills on 01-22-2023 Glucose [Mass/Vol] 199 mg/dL 70-100 [facility] Comment on above: ADA recommended refe rence rangeRandom Glucose Reference Range is dependent on time and content of last meal. Glucose of more than 200 mg/dL in a nonstressed, ambulatory subject supports the diagnosis of Diabetes Mellitus. Hematocrit Auto (Bld) [Volum e fraction]Ordered By: Roxane Bills on 01-22-2023 Hematocrit (Bld) [Volume fraction] 37.8 % 34.0-46.4 [facility] Hemoglobin [Mass/volume] in BloodOrdered By: Roxane Bills on 01-22-2023 Hemoglobin (Bld) [Mass/Vol] 12.3 g/dL 11.8-15.4 [facility] IgA [Mass/volume] in Serum o r PlasmaOrdered By: Roxane Bills on 01-22-2023 IgA [Mass/Vol] 669 mg/dL 87-352 [facility] IgG [Mass/volume] in Serum o r PlasmaOrdered By: Roxane Bills on 01-22-2023 IgG [Mass/Vol] 1764 mg/dL [phone] [facility] IgM [Mass/volume] in Serum o r PlasmaOrdered By: Roxane Bills on 01-22-2023 IgM [Mass/Vol] 107 mg/dL 26-217 [facility] Comment on above: Performed at: [place] [id number] Director: Jhoan Rich PhD, Phone: [phone] Immunofixation,Serumon 01-22 Immunofixation, Serum Abnormal . [facility] Comment on above: Result Comment: Immu nofixation shows IgG monoclonal protein with kappa light chain specificity. PLEASE NOTE: Samples from patients receiving DARZALEX(R) (daratumumab) or SARCLISA(R)(isatuximab-irfc) treatment can appear as an IgG kappa and mask a complete response (CR). If this patient is receiving these therapies, this MITCH assay interference can be removed by ordering test number [id number]- Immunofixation, Daratumumab-Specific, Serum or [id number]- Immunofixation, Isatuximab-Specific, Serum and submitting a new sample for testing or by calling the lab to add this test to the current sample. Performed By: #### K APPA, MITCH SERUM #### [facility] , #### FE and TIBC, CMP, CBC, CLEOPATRA #### [facility] [address] [place] [id number] [place] Immunoglobulin A, Serum 669 mg/dL High 87-352 [facility] Comment on above: Performed By: #### K APPA, MITCH SERUM #### [facility] , #### FE and TIBC, CMP, CBC, CLEOPATRA #### [facility] [address] Immunoglobulin G 1764 mg/dL High [phone] [facility] Comment on above: Performed By: #### K APPA, MITCH SERUM #### [facility] , #### FE and TIBC, CMP, CBC, CLEOPATRA #### [facility] [address] Immunoglobulin M, Serum 107 mg/dL Normal 26-217 [facility] Comment on above: Result Comment: Perf ormed at: [facility] [id number] Waist Pleater: Jhoan Rich PhD, Phone: [phone] Performed By: #### K APPA, MITCH SERUM #### [facility] , #### FE and TIBC, CMP, CBC, CLEOPATRA #### [facility] [address] Immunoglobulin light chains. kappa.free [Mass/volume] in SerumOrdered By: Roxane Bills on 01-22-2023 Immunoglobulin light chains.kappa.free (S) [Mass/Vol] 237.9 mg/L 3.3-19.4 [facility] Immunoglobulin light chains. kappa.free/Immunoglobulin light chains.lambda.free [MassOrdered By: Roxane Bills on 01-22-2023 Immunoglobulin light chains.kappa.free/Immun oglobulin light chains.lambda.free (S) [Mass ratio] 6.26 0.26-1.65 [facility] Comment on above: Performed at: [facility] [place] [id number] Director: Jhoan Rich PhD, Phone: [phone] Immunoglobulin light chains. lambda.free [Mass/volume] in Serum or PlasmaOrdered By: Roxane Bills on 01-22-2023 Immunoglobulin light chains.lambda.free [Mass/Vol] 38.0 mg/L 5.7-26.3 [facility] Iron [Mass/volume] in Serum or PlasmaOrdered By: Roxane Bills on 01-22-2023 Iron [Mass/Vol] 74 ug/dL 50-212 [facility] Iron and TIBC Profileon 01-11 % Iron Saturation 23.8 % Normal 20-50 [facility] Comment on above: Performed By: #### K APPA, MITCH SERUM #### [facility] , #### FE and TIBC, CMP, CBC, CLEOPATRA #### [facility] [address] Iron [Mass/Vol] 74 ug/dL Normal 50-212 [facility] Comment on above: Performed By: #### K APPA, MITCH SERUM #### [facility] , #### FE and TIBC, CMP, CBC, CLEOPATRA #### [facility] [address] [place] [address] Total Iron Binding Capacity 311 ug/dL Normal 255-450 [facility] Comment on above: Performed By: #### K APPA, MITCH SERUM #### [facility] , #### FE and TIBC, CMP, CBC, CLEOPATRA #### [facility] [address] [place] [address] Transferrin [Mass/Vol] 222 mg/dL Normal 203-362 [facility] Comment on above: Performed By: #### K APPA, MITCH SERUM #### [facility] , #### FE and TIBC, CMP, CBC, CLEOPATRA #### [facility] [address] [place] [address] [place] Iron binding capacity [Mass/ volume] in Serum or PlasmaOrdered By: Roxane Bills on 01-22-2023 Iron binding capacity [Mass/Vol] 311 ug/dL 255-450 [facility] Iron saturation [Mass Fracti on] in Serum or PlasmaOrdered By: Roxane Bills on 01-22-2023 Iron saturation [Mass fraction] 23.8 % 20-50 [facility] Leukocytes [#/volume] correc shan for nucleated erythrocytes in Blood by Automated counOrdered By: Roxane Bills on 01-22-2023 WBC corrected for nucl RBC Auto (Bld) [#/Vol] 12.4 10*3/uL 3.8-11.6 [facility] Lymphocytes Auto (Bld) [#/Vo l]Ordered By: Roxane Bills on 01-22-2023 Lymphocytes (Bld) [#/Vol] 3.2 10*3/uL 1.00-4.8 [facility] Lymphocytes/100 WBC Auto (Bl d)Ordered By: Roxane Bills on 01-22-2023 Lymphocytes/100 WBC (Bld) 25.5 % . [facility] MCH Auto (RBC) [Entitic mass ]Ordered By: Roxane Bills on 01-22-2023 MCH (RBC) [Entitic mass] 30.0 pg 24.7-34.3 [facility] MCHC Auto (RBC) [Mass/Vol]Or dered By: Roxane Bills on 01-22-2023 MCHC (RBC) [Mass/Vol] 32.7 g/dL 32.0-35.0 [facility] MCV Auto (RBC) [Entitic vol] Ordered By: Roxane Bills on 01-22-2023 MCV (RBC) [Entitic vol] 91.9 fL 80-100 [facility] Monocytes Auto (Bld) [#/Vol] Ordered By: Roxane Bills on 01-22-2023 Monocytes (Bld) [#/Vol] 0.7 10*3/uL 0.0-0.8 [facility] Monocytes/100 WBC Auto (Bld) Ordered By: Roxane Bills on 01-22-2023 Monocytes/100 WBC (Bld) 5.6 % . [facility] Neutrophils Auto (Bld) [#/Vo l]Ordered By: Roxane Bills on 01-22-2023 Neutrophils (Bld) [#/Vol] 8.0 10*3/uL 1.8-7.7 [facility] Neutrophils/100 WBC Auto (Bl d)Ordered By: Roxane Bills on 01-22-2023 Neutrophils/100 WBC (Bld) 64.2 % . [facility] No Panel InformationOrdered By: Roxane Bills on 01-22-2023 Estimated GFR (CKD-EPI) 43.118 mL/Min [facility] Creatinine Clearance (Chem 44.97 [facility] Serum Immunofixation See comment . [facility] Comment on above: Immunofixation shows IgG monoclonal protein with kappalight chain specificity. PLEASE NOTE: Samples from patients receiving DARZALEX(R)(daratumumab) or SARCLISA(R)(isatuximab-irfc) treatmentcan appear as an IgG kappa and mask a complete response(CR). If this patient is receiving these therapies, thisIFE assay interference can be removed by ordering testnumber [id number]- Immunofixation, Daratumumab-Specific,Serum or [id number]- Immunofixation, Isatuximab-Specific,Serum and submitting a new sample for testing or bycalling the lab to add this test to the current sample. Nucleated erythrocytes [Pres ence] in Blood by Automated countOrdered By: Roxane Bills on 01-22-2023 Nucleated RBC Auto Ql (Bld) 0.0 /100{WBC} 0-0.5 [facility] Platelet mean volume Auto (B ld) [Entitic vol]Ordered By: Roxane Bills on 01-22-2023 Platelet mean volume (Bld) [Entitic vol] 7.0 fL 6.3-10.7 [facility] Platelets Auto (Bld) [#/Vol] Ordered By: Roxane Bills on 01-22-2023 Platelets (Bld) [#/Vol] 299 10*3/uL 150-450 [facility] Potassium [Moles/volume] in Serum or PlasmaOrdered By: Roxane Bills on 01-22-2023 Potassium [Moles/Vol] 4.2 mmol/L 3.5-5.1 [facility] Protein [Mass/volume] in Ser um or PlasmaOrdered By: Roxane Bills on 01-22-2023 Protein [Mass/Vol] 7.9 g/dL 6.4-8.9 [facility] RBC Auto (Bld) [#/Vol]Ordere d By: Roxane Bills on 01-22-2023 RBC (Bld) [#/Vol] 4.11 10*6/uL 3.60-5.00 [facility] Serum or plasma albumin/glob ulin mass ratioOrdered By: Roxane Bills on 01-22-2023 Albumin/Globulin [Mass ratio] 0.9 {ratio} [facility] Serum or plasma anion gap de terminationOrdered By: Roxane Bills on 01-22-2023 Anion gap [Moles/Vol] 13.1 mmol/L 6.0-15.0 [facility] Sodium [Moles/volume] in Ser um or PlasmaOrdered By: Roxane Bills on 01-22-2023 Sodium [Moles/Vol] 141 mmol/L 136-145 [facility] Transferrin [Mass/volume] in Serum or PlasmaOrdered By: Roxane Bills on 01-22-2023 Transferrin [Mass/Vol] 222 mg/dL 203-362 [facility] Urea nitrogen [Mass/volume] in Serum or PlasmaOrdered By: Roxane Bills on 01-22-2023 Urea nitrogen [Mass/Vol] 13 mg/dL 7-25 [facility] WBC Auto (Bld) [#/Vol]Ordere d By: Roxane Bills on 01-22-2023 WBC (Bld) [#/Vol] 12.4 10*3/uL 3.8-11.6 [facility] Glucose Glucometer (BldC) [M ass/Vol]Ordered By: Nik Pineda on 12-18-2022 Glucose [Mass/Vol] 202 mg/dL [facility] Comment on above: Random Glucose Refer ence Range is dependent on time and content of last meal. Glucose of more than 200 mg/dL in a nonstressed, ambulatory subject supports the diagnosis of Diabetes Mellitus. Glucose Poct Glucometerson 0 12-18-2022 Commemt1 Glu2: Cleaned Meter Normal [facility] Comment on above: Result Comment: PERF ORMED BY: [place] [address] PATHOLOGIST [employer] AQUILINO JACK M.D. Performed By: #### R ENAL, [id number], LIPID #### [address] #### CPEP #### [facility] , Glucose [Mass/Vol] 202 mg/dL Normal [facility] Comment on above: Result Comment: [place] [facility] Glucose Reference Range is dependent on time and content of last meal. Glucose of more than 200 mg/dL in a nonstressed, ambulatory subject supports the diagnosis of Diabetes Mellitus. Performed By: #### R ENAL, [id number], LIPID #### [facility] [address] [place] [address] [place] #### CPEP #### [facility] , No Panel InformationOrdered By: Nik Pineda on 12-18-2022 Bedside Glucose Comment Glu2: cleaned meter [facility] MR lumbar spine wo conon MR lumbar spine wo con [facility] Main [address] [place] [address] MRI Report Signed Patient: Kelsea Turcios MR#: [id number] 58 : 1960 Acct:[id number] Age/Sex: 62 / F ADM Date: 12/04/22 Loc: Room: Type: [facility] Attending Dr: Jez Josue DO Copies to: [...] Harvey Barry M.D.12/04/2022 10:27 AM Dictation Location: [place] [address] Transcribed By: [facility] 12/04/22 1027 Dictated By: Harvey Barry II, MD 12/04/22 1020 Signed By: 12/04/22 1027 Normal [facility] XR hip LT min 2V(w/wo pelvis )*on 09-16-2022 XR hip LT min 2V(w/wo pelvis)* [facility] Main [address] [place] [address] XRay Report Signed Patient: Kelsea Turcios MR#: [id number] 58 : 1960 Acct:[id number] Age/Sex: 61 / F ADM Date: 09/16/22 Loc: XDS Room: Type: [facility] CLI Attending Dr: Peri Tyson DO Copies [...] Harvey Barry M.D.09/16/2022 4:17 PM Dictation Location: [place] [address] Transcribed By: [facility] 09/16/22 161 Dictated By: Harvey Barry II, MD 09/16/22 161 Signed By: 09/16/22 161 Normal [facility] Albumin [Mass/volume] in Ser um or Plasma by Bromocresol green (BCG) dye binding methoOrdered By: Jeannie Aguilar on 08-07-2022 Albumin BCG dye [Mass/Vol] 3.8 g/dL 3.5-5.7 [facility] C-Peptideon 08-07-2022 C-Peptide 1.6 ng/mL Normal 1.1-4.4 [facility] Comment on above: Result Comment: C-Pe ptide reference interval is for fasting patients. Performed at: CB - [facility] [address] [id number] Waist Pleater: Jhoan Rich PhD, Phone: [phone] PERFORMED BY: [place] [address] PATHOLOGIST [employer] AQUILINO JACK M.D. Performed By: #### R ENAL, [id number], LIPID #### [address] #### CPEP #### [facility] , Calcium [Mass/volume] in Ser um or PlasmaOrdered By: Jeannie Aguilar on 08-07-2022 Calcium [Mass/Vol] 9.2 mg/dL 8.6-10.3 [facility] Carbon dioxide, total [Moles /volume] in Serum or PlasmaOrdered By: Jeannie Aguilar on 08-07-2022 CO2 [Moles/Vol] 32.6 mmol/L 21.0-31.0 [facility] Chloride [Moles/volume] in S logan or PlasmaOrdered By: Jeannie Aguilar on 08-07-2022 Chloride [Moles/Vol] 104 mmol/L 98-107 [facility] Cholesterol [Mass/volume] in Serum or PlasmaOrdered By: Jeannie Aguilar on 08-07-2022 Cholesterol [Mass/Vol] 148 mg/dL 140-200 [facility] Comment on above: Chol less than 200 m g/dl low riskChol 201-239 mg/dl borderline riskChol 240 mg/dl and greater high risk Cholesterol in LDL Calc [Mas s/Vol]Ordered By: Jeannie Aguilar on 08-07-2022 Cholesterol in LDL [Mass/Vol] 82 mg/dL 0-100 [facility] Comment on above: LDL ATP III CLASSIFI CATIONLDL less than 100 mg/dL OptimalLDL 100-129 mg/dL Near or above optimalLDL 130-159 mg/dL Borderline highLDL 160-189 mg/dL HighLDL greater than 189 mg/dL Very high Cholesterol in VLDL Calc [Ma ss/Vol]Ordered By: Jeannie Aguilar on 08-07-2022 Cholesterol in VLDL [Mass/Vol] 15 mg/dL [facility] Creatinine [Mass/volume] in Serum or PlasmaOrdered By: Jeannie Aguilar on 08-07-2022 Creatinine [Mass/Vol] 1.65 mg/dL 0.60-1.20 [facility] Creatinine [Mass/volume] in UrineOrdered By: Jeannie Aguilar on 08-07-2022 Creatinine (U) [Mass/Vol] 51.0 mg/dL 11.0-20.0 [facility] Glucose [Mass/volume] in Ser um or PlasmaOrdered By: Jeannie Aguilar on 08-07-2022 Glucose [Mass/Vol] 71 mg/dL 70-100 [facility] Comment on above: ADA recommended refe rence rangeRandom Glucose Reference Range is dependent on time and content of last meal. Glucose of more than 200 mg/dL in a nonstressed, ambulatory subject supports the diagnosis of Diabetes Mellitus. Lipid Panelon 08-07-2022 Cholesterol [Mass/Vol] 148 mg/dL Normal 140-200 [facility] Comment on above: Order Comment: PT IS FASTING Result Comment: Chol less than 200 mg/dl low risk Chol 201-239 mg/dl borderline risk Chol 240 mg/dl and greater high risk Performed By: #### R ENAL, [id number], LIPID #### [facility] [address] [place] [address] #### CPEP #### [facility] , Cholesterol in HDL [Mass/Vol] 51 mg/dL Normal 35-85 [facility] Comment on above: Order Comment: PT IS FASTING Result Comment: HDL CHOL ATP-III CLASSIFICATION Cardiovascular Risk HDL > or equal to 60 mg/dL LOW HDL < 40 mg/dL HIGH Performed By: #### R ENAL, [id number], LIPID #### [address] #### CPEP #### [facility] , Cholesterol.total/Shahla sterol in HDL [Mass ratio] 2.9 {ratio} Normal <5.0 [facility] Comment on above: Order Comment: PT IS FASTING Performed By: #### R ENAL, [id number], LIPID #### [facility] [address] [place] [address] [place] #### CPEP #### [facility] , LDL Cholesterol,Calculated 82 mg/dL Normal 0-100 [facility] Comment on above: Order Comment: PT IS FASTING Result Comment: LDL ATP III CLASSIFICATION LDL less than 100 mg/dL Optimal LDL 100-129 mg/dL Near or above optimal LDL 130-159 mg/dL Borderline high LDL 160-189 mg/dL High LDL greater than 189 mg/dL Very high Performed By: #### R ENAL, [id number], LIPID #### [address] #### CPEP #### [facility] , Triglyceride w/Reflex 75 mg/dL Normal 0-149 [facility] Comment on above: Order Comment: PT IS FASTING Result Comment: TRIG ATP III CLASSIFICATION TRIG less than 150 mg/dL Normal TRIG 150-199 mg/dL Borderline high TRIG 200-500 mg/dL High TRIG greater than 500 mg/dL Very high Standard traceable to the Center for Disease Conrtrol and Prevention (CDC) test method. Performed By: #### R ENAL, [id number], LIPID #### [address] #### CPEP #### [facility] , VLDL CHOLESTEROL 15 mg/dL Normal [facility] Comment on above: Order Comment: PT IS FASTING Performed By: #### R ENAL, [id number], LIPID #### [address] #### CPEP #### [facility] , MicroAlb Creat Ratio,Uon Albumin DL <= 20 mg/L (U) [Mass/Vol] mg/dL Normal 0.0-1.8 [facility] Comment on above: Performed By: #### R ENAL, [id number], LIPID #### [place] [address] [place] #### CPEP #### [facility] , Creatinine, Urine (Random) 51.0 mg/dL High 11.0-20.0 [facility] Comment on above: Performed By: #### R ENAL, [id number], LIPID #### [place] [address] [place] #### CPEP #### [facility] , Microalbumin/Creatinine Ratio Not performed Normal 0.0-30.0 [facility] Comment on above: Result Comment: PERF ORMED BY: [place] [address] PATHOLOGIST [employer] AQUILINO JAKC M.D. Performed By: #### R ENAL, [id number], LIPID #### [facility] [address] [place] [address] [place] #### CPEP #### [facility] , Microalbumin [Mass/volume] i n UrineOrdered By: Jeannie Aguilar on 08-07-2022 Albumin DL <= 20 mg/L (U) [Mass/Vol] mg/dL 0.0-1.8 [facility] No Panel InformationOrdered By: Jeannie Aguilar on 08-07-2022 C-Peptide 1.6 ng/mL 1.1-4.4 [facility] Comment on above: C-Peptide reference interval is for fasting patients.Performed at: [facility] [place] [id number] Director: Jhoan Rich PhD, Phone: [phone] Estimated GFR (CKD-EPI) 34.710 mL/Min [facility] Creatinine Clearance (Chem N/A [facility] Phosphate [Mass/volume] in S logan or PlasmaOrdered By: Jeannie Aguilar on 08-07-2022 Phosphate [Mass/Vol] 4.5 mg/dL 3.7-7.2 [facility] Potassium [Moles/volume] in Serum or PlasmaOrdered By: Jeannie Aguilar on 08-07-2022 Potassium [Moles/Vol] 4.8 mmol/L 3.5-5.1 [facility] Renal Function Panelon 08-07 Albumin [Mass/Vol] 3.8 g/dL Normal 3.5-5.7 [facility] Comment on above: Order Comment: PT IS FASTING Performed By: #### R ENAL, [id number], LIPID #### [facility] [address] [place] [address] #### CPEP #### [facility] , Anion gap [Moles/Vol] 12.2 mmol/L Normal 6.0-15.0 [facility] Comment on above: Order Comment: PT IS FASTING Performed By: #### R ENAL, [id number], LIPID #### [facility] [address] [place] [address] [place] #### CPEP #### [facility] , Calcium [Mass/Vol] 9.2 mg/dL Normal 8.6-10.3 [facility] Comment on above: Order Comment: PT IS FASTING Performed By: #### R ENAL, [id number], LIPID #### [facility] [address] [place] [address] #### CPEP #### [facility] , Chloride [Moles/Vol] 104 mmol/L Normal 98-107 [facility] Comment on above: Order Comment: PT IS FASTING Performed By: #### R ENAL, [id number], LIPID #### [facility] [address] [place] [address] #### CPEP #### [facility] , CO2 [Moles/Vol] 32.6 mmol/L High 21.0-31.0 [facility] Comment on above: Order Comment: PT IS FASTING Performed By: #### R ENAL, [id number], LIPID #### [facility] [address] [place] [address] #### CPEP #### [facility] , Creatinine [Mass/Vol] 1.65 mg/dL High 0.60-1.20 [facility] Comment on above: Order Comment: PT IS FASTING Performed By: #### R ENAL, [id number], LIPID #### [facility] [address] [place] [address] [place] #### CPEP #### [facility] , GFR/1.73 sq M.predicted MDRD (S/P/Bld) [Vol rate/Area] 34.710 mL/min/{1.73_m2} Normal [facility] Comment on above: Order Comment: PT IS FASTING Performed By: #### R ENAL, [id number], LIPID #### [address] #### CPEP #### [facility] , Glucose [Mass/Vol] 71 mg/dL Normal 70-100 [facility] Comment on above: Order Comment: PT IS FASTING Result Comment: [facility] Glucose Reference Range is dependent on time and content of last meal. Glucose of more than 200 mg/dL in a nonstressed, ambulatory subject supports the diagnosis of Diabetes Mellitus. ADA recommended reference range Performed By: #### R ENAL, [id number], LIPID #### [place] [address] [place] #### CPEP #### [facility] , Phosphate [Mass/Vol] 4.5 mg/dL Normal 3.7-7.2 [facility] Comment on above: Order Comment: PT IS FASTING Performed By: #### R ENAL, [id number], LIPID #### [address] #### CPEP #### [facility] , Potassium [Moles/Vol] 4.8 mmol/L Normal 3.5-5.1 [facility] Comment on above: Order Comment: PT IS FASTING Performed By: #### R ENAL, [id number], LIPID #### [place] [address] [place] #### CPEP #### [facility] , Sodium [Moles/Vol] 144 mmol/L Normal 136-145 [facility] Comment on above: Order Comment: PT IS FASTING Performed By: #### R ENAL, [id number], LIPID #### [address] [place] [address] [place] #### CPEP #### [facility] , Urea nitrogen [Mass/Vol] 22 mg/dL Normal 7-25 [facility] Comment on above: Order Comment: PT IS FASTING Performed By: #### R ENAL, [id number], LIPID #### [facility] [address] #### CPEP #### [facility] , Serum or plasma anion gap de terminationOrdered By: Jeannie Aguilar on 08-07-2022 Anion gap [Moles/Vol] 12.2 mmol/L 6.0-15.0 [facility] Serum or plasma high density lipoprotein (HDL) cholesterol measurementOrdered By: Jeannie Aguilar on 08-07-2022 Cholesterol in HDL [Mass/Vol] 51 mg/dL 35-85 [facility] Comment on above: HDL CHOL ATP-III CLA SSIFICATION Cardiovascular RiskHDL > or equal to 60 mg/dL LOWHDL < 40 mg/dL HIGH Serum or plasma total choles terol/high density lipoprotein (HDL) cholesterol mass ratOrdered By: Jeannie Aguilar on 08-07-2022 Cholesterol.total/Shahla sterol in HDL [Mass ratio] 2.9 {ratio} <5.0 [facility] Sodium [Moles/volume] in Ser um or PlasmaOrdered By: Jeannie Aguilar on 08-07-2022 Sodium [Moles/Vol] 144 mmol/L 136-145 [facility] Triglyceride [Mass/volume] i n Serum or PlasmaOrdered By: Jeannie Aguilar on 08-07-2022 Triglyceride [Mass/Vol] 75 mg/dL 0-149 [facility] Comment on above: TRIG ATP III CLASSIF ICATIONTRIG less than 150 mg/dL NormalTRIG 150-199 mg/dL Borderline highTRIG 200-500 mg/dL High TRIG greater than 500 mg/dL Very highStandard traceable to the Center for Disease Conrtrol and Prevention (CDC) test method. Urea nitrogen [Mass/volume] in Serum or PlasmaOrdered By: Jeannie Aguilar on 08-07-2022 Urea nitrogen [Mass/Vol] 22 mg/dL 7- [facility] Urine microalbumin/creatinin e mass ratioOrdered By: Jeannie Aguilar on 08-07-2022 Albumin/Creatinine DL <= 20 mg/L (U) [Mass ratio] TNP [facility] Comment on above: Test not performed Vitamin D 25 Hydroxy Totalon 08-07-2022 Vitamin D 25 Hydroxy Total 47.6 ng/mL Normal 30-100 [facility] Comment on above: Order Comment: PT IS FASTING Result Comment: KOBI MIN D STATUS 25(OH)VITAMIN D RANGE (ng/mL) Deficient <20 Insufficient 20 to <30 Sufficient 30 to 100 Reference: Vanessa Negron, Caesar ASIF et al. Evaluation,treatment, and prevention of vitamin D deficiency; an Endocrine Society clinical practice guideline. JCEM. 2010; 96(7):1911-. PERFORMED BY: [place] [address] PATHOLOGIST [employer] AQUILINO JACK M.D. Performed By: #### R ENAL, [id number], LIPID #### [address] #### CPEP #### [facility] , Vitamin D+Metabolites [Mass/ volume] in Serum or PlasmaOrdered By: Jeannie Aguilar on 08-07-2022 Vitamin D+Metabolites [Mass/Vol] 47.6 ng/mL 30-100 [facility] Comment on above: VITAMIN D STATUS 25( [place])VITAMIN D RANGE (ng/mL) Deficient <20 Insufficient 20 to <30Sufficient 30 to 100Reference: Vanessa Negron, Caesar ASIF, et al. Evaluation,treatment, and prevention of vitamin D deficiency; an Endocrine Society clinical practice guideline. JCEM. 2010; 96(7):1911-30. US venous duplex LE BIon US venous duplex LE BI [facility] Main [address] [place] [address] Ultrasound Report Signed Patient: Kelsea Turcios MR#: [id number] 58 : 1960 Acct:[id number] Age/Sex: 61 / F ADM Date: 07/07/22 Loc: [facility] Room: Type: [facility] Attending Dr: Domenico Whitmore MD Ordering [...] measuring 3 mm in diameter. No significant center lead consultant incompetence is noted. There is no lesser [...] to 3 mm in diameter. No significant center lead consultant incompetence is noted. The lesser saphenous vein is normal in size. US/US venous duplex LE BI IMPRESSION: No evidence for deep vein thrombosis in either lower extremity. Minimal venous valvular incompetence is noted. There are more varicosities in the left leg than in the right leg Impression dictated by: Domenico Whitmore M.D.08/04/2022 1:47 PM Dictation Location: [facility] Tech: Eve Ramos Transcribed By: RACHEL 08/04/22 1347 Dictated By: Domenico Whitmore MD 08/04/22 1344 Signed By: 08/04/22 1347 Normal [facility] Albumin [Mass/volume] in Ser um or PlasmaOrdered By: Shanae Galicia on 07-22-2022 Albumin [Mass/Vol] 3.2 g/dL 2.9-4.4 [facility] Basophils Auto (Bld) [#/Vol] Ordered By: Shanae Galicia on 07-22-2022 Basophils (Bld) [#/Vol] 0.0 10*3/uL 0.0-0.2 [facility] Basophils/100 WBC Auto (Bld) Ordered By: Shanae Galicia on 07-22-2022 Basophils/100 WBC (Bld) 0.5 % . [facility] Complete Blood Count Auto Di ffon 07-22-2022 Basophils (Bld) [#/Vol] 0.0 10*3/uL Normal 0.0-0.2 [facility] Comment on above: Result Comment: PERF ORMED BY: [place] [address] PATHOLOGIST [employer] AQUILINO JACK M.D. Performed By: #### R ENAL, [id number], LIPID #### [facility] [address] [place] [address] #### CPEP #### [facility] , Basophils/100 WBC (Bld) 0.5 % Normal . [facility] Comment on above: Performed By: #### R ENAL, [id number], LIPID #### [facility] [address] [place] [address] #### CPEP #### [facility] , Eosinophils (Bld) [#/Vol] 0.6 10*3/uL High 0.0-0.45 [facility] Comment on above: Performed By: #### R ENAL, [id number], LIPID #### [place] [address] [place] #### CPEP #### [facility] , Eosinophils/100 WBC (Bld) 6.1 % Normal . [facility] Comment on above: Performed By: #### R ENAL, [id number], LIPID #### [facility] [address] [place] [address] [place] #### CPEP #### [facility] , Erythrocyte distribution width (RBC) [Ratio] 14.7 % Normal 11.9-15.3 [facility] Comment on above: Performed By: #### R ENAL, [id number], LIPID #### [place] [address] [place] #### CPEP #### [facility] , Hematocrit (Bld) [Volume fraction] 37.1 % Normal 34.0-46.4 [facility] Comment on above: Performed By: #### R ENAL, [id number], LIPID #### [address] #### CPEP #### [facility] , Hemoglobin (Bld) [Mass/Vol] 12.1 g/dL Normal 11.8-15.4 [facility] Comment on above: Performed By: #### R ENAL, [id number], LIPID #### [facility] [address] [place] [address] [place] #### CPEP #### [facility] , Lymphocytes (Bld) [#/Vol] 2.6 10*3/uL Normal 1.00-4.8 [facility] Comment on above: Performed By: #### R ENAL, [id number], LIPID #### [place] [address] [place] #### CPEP #### [facility] , Lymphocytes/100 WBC (Bld) 25.2 % Normal . [facility] Comment on above: Performed By: #### R ENAL, [id number], LIPID #### [facility] [address] [place] [address] #### CPEP #### [facility] , MCH (RBC) [Entitic mass] 29.6 pg Normal 24.7-34.3 [facility] Comment on above: Performed By: #### R ENAL, [id number], LIPID #### [facility] [address] [place] [address] #### CPEP #### [facility] , MCV (RBC) [Entitic vol] 90.4 fL Normal 80-100 [facility] Comment on above: Performed By: #### R ENAL, [id number], LIPID #### [address] #### CPEP #### [facility] , Mean Corpuscular HGB Conc 32.7 g/dL Normal 32.0-35.0 [facility] Comment on above: Performed By: #### R ENAL, [id number], LIPID #### [facility] [address] [place] [address] #### CPEP #### [facility] , Monocytes (Bld) [#/Vol] 0.7 10*3/uL Normal 0.0-0.8 [facility] Comment on above: Performed By: #### R ENAL, [id number], LIPID #### [address] #### CPEP #### [facility] , Monocytes/100 WBC (Bld) 7.0 % Normal . [facility] Comment on above: Performed By: #### R ENAL, [id number], LIPID #### [facility] [address] [place] [address] [place] #### CPEP #### [facility] , Neutrophils (Bld) [#/Vol] 6.2 10*3/uL Normal 1.8-7.7 [facility] Comment on above: Performed By: #### R ENAL, [id number], LIPID #### [facility] [address] [place] [address] [place] #### CPEP #### [facility] , Neutrophils/100 WBC (Bld) 61.2 % Normal . [facility] Comment on above: Performed By: #### R ENAL, [id number], LIPID #### [place] [address] [place] #### CPEP #### [facility] , NRBC% 0.0 /100{WBC} Normal 0-0.5 [facility] Comment on above: Performed By: #### R ENAL, [id number], LIPID #### [facility] [address] [place] [address] [place] #### CPEP #### [facility] , Platelet mean volume (Bld) [Entitic vol] 7.4 fL Normal 6.3-10.7 [facility] Comment on above: Performed By: #### R ENAL, [id number], LIPID #### [address] #### CPEP #### [facility] , Platelets (Bld) [#/Vol] 267 10*3/uL Normal 150-450 [facility] Comment on above: Performed By: #### R ENAL, [id number], LIPID #### [facility] [address] [place] [address] [place] #### CPEP #### [facility] , RBC (Bld) [#/Vol] 4.10 10*6/uL Normal 3.60-5.00 [facility] Comment on above: Performed By: #### R ENAL, [id number], LIPID #### [address] [place] [address] [place] #### CPEP #### [facility] , WBC (Bld) [#/Vol] 10.2 10*3/uL Normal 3.8-11.6 [facility] Comment on above: Performed By: #### R ENAL, [id number], LIPID #### [facility] [address] [place] [address] [place] #### CPEP #### [facility] , Eosinophils Auto (Bld) [#/Vo l]Ordered By: Shanae Grayson on 07-22-2022 Eosinophils (Bld) [#/Vol] 0.6 10*3/uL 0.0-0.45 [facility] Eosinophils/100 WBC Auto (Bl d)Ordered By: Shanae Grayson on 07-22-2022 Eosinophils/100 WBC (Bld) 6.1 % . [facility] Erythrocyte distribution wid th Auto (RBC) [Ratio]Ordered By: Shanae Grayson on 07-22-2022 Erythrocyte distribution width (RBC) [Ratio] 14.7 % 11.9-15.3 [facility] Ferritinon 07-22-2022 Ferritin [Mass/Vol] 284.4 ng/mL Normal 11.0-306.8 [facility] Comment on above: Order Comment: PT IS FASTING Result Comment: PERF ORMED BY: [place] [address] PATHOLOGIST [employer] AQUILINO JACK M.D. Performed By: #### R ENAL, [id number], LIPID #### [facility] [address] [place] [address] #### CPEP #### [facility] , Ferritin [Mass/volume] in Se rum or PlasmaOrdered By: Shanae Grayson on 07-22-2022 Ferritin [Mass/Vol] 284.4 ng/mL 11.0-306.8 [facility] Free K+L LT Chains, Qn, Son 07-22-2022 Free Black Sands Light Chains, S 120.4 mg/L High 3.3-19.4 [facility] Comment on above: Performed By: #### R ENAL, [id number], LIPID #### [facility] [address] [place] [address] [place] #### CPEP #### [facility] , Free Lambda Light Chains, S 32.9 mg/L High 5.7-26.3 [facility] Comment on above: Performed By: #### R ENAL, [id number], LIPID #### [place] [address] [place] #### CPEP #### [facility] , Black Sands/Lambda Ratio, S 3.66 High 0.26-1.65 [facility] Comment on above: Result Comment: Perf ormed at: - [facility] [address] [id number] Waist Pleater: Jhoan Rich PhD, Phone: [phone] PERFORMED BY: [place] [address] PATHOLOGIST [employer] AQUILINO JACK M.D. Performed By: #### R ENAL, [id number], LIPID #### [address] #### CPEP #### [facility] , Hematocrit Auto (Bld) [Volum e fraction]Ordered By: Shanae Galicia on 07-22-2022 Hematocrit (Bld) [Volume fraction] 37.1 % 34.0-46.4 [facility] Hemoglobin [Mass/volume] in BloodOrdered By: Shanae Galicia on 07-22-2022 Hemoglobin (Bld) [Mass/Vol] 12.1 g/dL 11.8-15.4 [facility] IgA [Mass/volume] in Serum o r PlasmaOrdered By: Shanae Galicia on 07-22-2022 IgA [Mass/Vol] 656 mg/dL 87-352 [facility] IgG [Mass/volume] in Serum o r PlasmaOrdered By: Shanae Galicia on 07-22-2022 IgG [Mass/Vol] 1303 mg/dL [phone] [facility] IgM [Mass/volume] in Serum o r PlasmaOrdered By: Shanae Galicia on 07-22-2022 IgM [Mass/Vol] 91 mg/dL 26-217 [facility] Comment on above: Performed at: [address] [id number] Director: Jhoan Rich PhD, Phone: [phone] Immunofixation,Serumon 07-22 Immunofixation, Serum Abnormal . [facility] Comment on above: Result Comment: Immu nofixation shows IgG monoclonal protein with kappa light chain specificity. PLEASE NOTE: Samples from patients receiving DARZALEX(R) (daratumumab) or SARCLISA(R)(isatuximab-irfc) treatment can appear as an IgG kappa and mask a complete response (CR). If this patient is receiving these therapies, this MITCH assay interference can be removed by ordering test number [id number]- Immunofixation, Daratumumab-Specific, Serum or [id number]- Immunofixation, Isatuximab-Specific, Serum and submitting a new sample for testing or by calling the lab to add this test to the current sample. Performed By: #### R ENAL, [id number], LIPID #### [facility] [address] [place] [address] [place] #### CPEP #### [facility] , Immunoglobulin A, Serum 656 mg/dL High 87-352 [facility] Comment on above: Performed By: #### R ENAL, [id number], LIPID #### [facility] [address] [place] [id number] [place] #### CPEP #### [facility] , Immunoglobulin G 1303 mg/dL Normal 586-1602 [facility] Comment on above: Performed By: #### R ENAL, [id number], LIPID #### [facility] [address] [place] [id number] [place] #### CPEP #### [facility] , Immunoglobulin M, Serum 91 mg/dL Normal 26-217 [facility] Comment on above: Result Comment: Perf ormed at: - [facility] [address] [id number] Waist Pleater: Jhoan Rich PhD, Phone: [phone] Performed By: #### R ENAL, [id number], LIPID #### [facility] [address] #### CPEP #### [facility] , Immunoglobulin light chains. kappa.free [Mass/volume] in SerumOrdered By: Shanae Galicia on 07-22-2022 Immunoglobulin light chains.kappa.free (S) [Mass/Vol] 120.4 mg/L 3.3-19.4 [facility] Immunoglobulin light chains. kappa.free/Immunoglobulin light chains.lambda.free [MassOrdered By: Shanae Galicia on 07-22-2022 Immunoglobulin light chains.kappa.free/Immun oglobulin light chains.lambda.free (S) [Mass ratio] 3.66 0.26-1.65 [facility] Comment on above: Performed at: - [facility] [id number] [place] [address] [id number] Director: Jhoan Rich PhD, Phone: [phone] Immunoglobulin light chains. lambda.free [Mass/volume] in Serum or PlasmaOrdered By: Shanae Galicia on 07-22-2022 Immunoglobulin light chains.lambda.free [Mass/Vol] 32.9 mg/L 5.7-26.3 [facility] Iron [Mass/volume] in Serum or PlasmaOrdered By: Shanae Galicia on 07-22-2022 Iron [Mass/Vol] 67 ug/dL 50-212 [facility] Iron and TIBC Profileon 07-12 % Iron Saturation 23.1 % Normal 20-50 [facility] Comment on above: Order Comment: PT IS FASTING Performed By: #### R ENAL, [id number], LIPID #### [facility] [address] [place] [address] [place] #### CPEP #### [facility] , Iron [Mass/Vol] 67 ug/dL Normal 50-212 [facility] Comment on above: Order Comment: PT IS FASTING Performed By: #### R ENAL, [id number], LIPID #### [facility] [address] [place] [address] [place] #### CPEP #### [facility] , Total Iron Binding Capacity 290 ug/dL Normal 255-450 [facility] Comment on above: Order Comment: PT IS FASTING Performed By: #### R ENAL, [id number], LIPID #### [facility] [address] [place] [address] [place] #### CPEP #### [facility] , Transferrin [Mass/Vol] 207 mg/dL Normal 203-362 [facility] Comment on above: Order Comment: PT IS FASTING Performed By: #### R ENAL, [id number], LIPID #### [facility] [address] [place] [address] [place] #### CPEP #### [facility] , Iron binding capacity [Mass/ volume] in Serum or PlasmaOrdered By: Shanae Galicia on 07-22-2022 Iron binding capacity [Mass/Vol] 290 ug/dL 255-450 [facility] Iron saturation [Mass Fracti on] in Serum or PlasmaOrdered By: Shanae Galicia on 07-22-2022 Iron saturation [Mass fraction] 23.1 % 20-50 [facility] Laboratory - Chemistry and C hemistry - challengeOrdered By: Shanae Galicia on 07-22-2022 Protein [Mass/Vol] 0.5 g/dL Not Observed [facility] Leukocytes [#/volume] correc shan for nucleated erythrocytes in Blood by Automated counOrdered By: Shanae Galicia on 07-22-2022 WBC corrected for nucl RBC Auto (Bld) [#/Vol] 10.2 10*3/uL 3.8-11.6 [facility] Lymphocytes Auto (Bld) [#/Vo l]Ordered By: Shanae Galicia on 07-22-2022 Lymphocytes (Bld) [#/Vol] 2.6 10*3/uL 1.00-4.8 [facility] Lymphocytes/100 WBC Auto (Bl d)Ordered By: Shanae Galicia on 07-22-2022 Lymphocytes/100 WBC (Bld) 25.2 % . [facility] MCH Auto (RBC) [Entitic mass ]Ordered By: Shanae Galicia on 07-22-2022 MCH (RBC) [Entitic mass] 29.6 pg 24.7-34.3 [facility] MCHC Auto (RBC) [Mass/Vol]Or dered By: Shanae Galicia on 07-22-2022 MCHC (RBC) [Mass/Vol] 32.7 g/dL 32.0-35.[address] [facility] MCV Auto (RBC) [Entitic vol] Ordered By: Shanae Galicia on 07-22-2022 MCV (RBC) [Entitic vol] 90.4 fL 80-100 [facility] Monocytes Auto (Bld) [#/Vol] Ordered By: Shanae Galicia on 07-22-2022 Monocytes (Bld) [#/Vol] 0.7 10*3/uL 0.0-0.8 [facility] Monocytes/100 WBC Auto (Bld) Ordered By: Shanae Galicia on 07-22-2022 Monocytes/100 WBC (Bld) 7.0 % . [facility] Neutrophils Auto (Bld) [#/Vo l]Ordered By: Shanae Galicia on 07-22-2022 Neutrophils (Bld) [#/Vol] 6.2 10*3/uL 1.8-7.7 [facility] Neutrophils/100 WBC Auto (Bl d)Ordered By: Shanae Galicia on 07-22-2022 Neutrophils/100 WBC (Bld) 61.2 % . [facility] No Panel InformationOrdered By: Shanae Galicia on 07-22-2022 Protein Electrophoresis Note See comment . [facility] Comment on above: Protein electrophore sis scan will follow via computer,mail, or busboy delivery.Performed at: [address] [id number] Director: Jhoan Rich PhD, Phone: [phone] Serum Immunofixation See comment . [facility] Comment on above: Immunofixation shows IgG monoclonal protein with kappalight chain specificity. PLEASE NOTE: Samples from patients receiving DARZALEX(R)(daratumumab) or SARCLISA(R)(isatuximab-multicare healthc) treatmentcan appear as an IgG kappa and mask a complete response(CR). If this patient is receiving these therapies, thisIFE assay interference can be removed by ordering testnumber [id number]- Immunofixation, Daratumumab-Specific,Serum or [id number]- Immunofixation, Isatuximab-Specific,Serum and submitting a new sample for testing or bycalling the lab to add this test to the current sample. Nucleated erythrocytes [Pres ence] in Blood by Automated countOrdered By: Shanae Galicia on 07-22-2022 Nucleated RBC Auto Ql (Bld) 0.0 /100{WBC} 0-0.5 [facility] Platelet mean volume Auto (B ld) [Entitic vol]Ordered By: Shanae Galicia on 07-22-2022 Platelet mean volume (Bld) [Entitic vol] 7.4 fL 6.3-10.7 [facility] Platelets Auto (Bld) [#/Vol] Ordered By: Shanae Galicia on 07-22-2022 Platelets (Bld) [#/Vol] 267 10*3/uL 150-450 [facility] Protein Electrophoresis, Ser umon 07-22-2022 Albumin [Mass/Vol] 3.2 g/dL Normal 2.9-4.4 [facility] Comment on above: Performed By: #### R ENAL, [id number], LIPID #### [facility] [address] [place] [address] [place] #### CPEP #### [facility] , Albumin/Globulin [Mass ratio] 0.8 {ratio} Normal 0.7-1.7 [facility] Comment on above: Performed By: #### R ENAL, [id number], LIPID #### [facility] [address] [place] [address] [place] #### CPEP #### [facility] , Kszry-2-Jgdttloe 0.3 g/dL Normal 0.0-0.4 [facility] Comment on above: Performed By: #### R ENAL, [id number], LIPID #### [facility] [address] [place] [address] #### CPEP #### [facility] , Abaun-6-Fbstljbl 1.0 g/dL Normal 0.4-1.0 [facility] Comment on above: Performed By: #### R ENAL, [id number], LIPID #### [facility] [address] [place] [address] #### CPEP #### [facility] , Beta Globulin 1.2 g/dL Normal 0.7-1.3 [facility] Comment on above: Performed By: #### R ENAL, [id number], LIPID #### [facility] [address] [place] [address] #### CPEP #### [facility] , Gamma Globulin 1.4 g/dL Normal 0.4-1.8 [facility] Comment on above: Performed By: #### R ENAL, [id number], LIPID #### [address] #### CPEP #### [facility] , Globulin (S) [Mass/Vol] 3.9 g/dL Normal 2.2-3.9 [facility] Comment on above: Performed By: #### R ENAL, [id number], LIPID #### [facility] [address] [place] [address] [place] #### CPEP #### [facility] , M-Damien 0.5 g/dL High Not Observed [facility] Comment on above: Performed By: #### R ENAL, [id number], LIPID #### [facility] [address] [place] [address] [place] #### CPEP #### [facility] , Protein [Mass/Vol] 7.1 g/dL Normal 6.0-8.5 [facility] Comment on above: Performed By: #### R ENAL, [id number], LIPID #### [facility] [address] [place] [address] [place] #### CPEP #### [facility] , SPE-Note Normal . [facility] Comment on above: Result Comment: Prot ein electrophoresis scan will follow via computer, mail, or busboy delivery. Performed at: - [facility] [id number] Waist Pleater: Jhoan Rich PhD, Phone: [phone] Performed By: #### R ENAL, [id number], LIPID #### [facility] [address] [place] [address] #### CPEP #### [facility] , Protein [Mass/volume] in Ser um or PlasmaOrdered By: Shanae Galicia on 07-22-2022 Protein [Mass/Vol] 7.1 g/dL 6.0-8.5 [facility] RBC Auto (Bld) [#/Vol]Ordere d By: Shanae Galicia on 07-22-2022 RBC (Bld) [#/Vol] 4.10 10*6/uL 3.60-5.00 [facility] Serum globulin measurement ( mass/volume)Ordered By: Shanae Galicia on 07-22-2022 Globulin (S) [Mass/Vol] 3.9 g/dL 2.2-3.9 [facility] Serum or plasma albumin/glob ulin mass ratioOrdered By: Shanae Galicia on 07-22-2022 Albumin/Globulin [Mass ratio] 0.8 {ratio} 0.7-1.7 [facility] Serum or plasma alpha 1 glob ulin measurement by electrophoresis (mass/volume)Ordered By: Shanae Galicia on 07-22-2022 Alpha 1 globulin Elph [Mass/Vol] 0.3 g/dL 0.0-0.4 [facility] Serum or plasma alpha 2 glob ulin measurement by electrophoresis (mass/volume)Ordered By: Shanae Grayson on 07-22-2022 Alpha 2 globulin Elph [Mass/Vol] 1.0 g/dL 0.4-1.0 [facility] Serum or plasma beta globuli n measurement by electrophoresis (mass/volume)Ordered By: Shanae Grayson on 07-22-2022 Beta globulin Elph [Mass/Vol] 1.2 g/dL 0.7-1.3 [facility] Serum or plasma gamma globul in measurement by electrophoresis (mass/volume)Ordered By: Shanae Grayson on 07-22-2022 Gamma globulin Elph [Mass/Vol] 1.4 g/dL 0.4-1.8 [facility] Transferrin [Mass/volume] in Serum or PlasmaOrdered By: Shanae Galicia on 07-22-2022 Transferrin [Mass/Vol] 207 mg/dL 203-362 [facility] WBC Auto (Bld) [#/Vol]Ordere d By: Shanae Grayson on 07-22-2022 WBC (Bld) [#/Vol] 10.2 10*3/uL 3.8-11.6 [facility] FFD mammogram Breast - bilat eral Screeningon 05-23-2022 MM screening mammo BI w/CAD [facility] Backspaces [facility] [employer] Other MM screening mammo BI w/CAD [facility] [employer] Other MM screening mammo BI w/CAD [address] [place] [address] [facility] [employer] Other MM screening mammo BI w/[place] [address] [employer] Other MM screening mammo BI w/CAD Mammography Report [facility] Other MM screening mammo BI w/CAD Signed [employer] Other MM screening mammo BI w/CAD Patient: Kelsea Turcios MR#: [id number] [employer] Other MM screening mammo BI w/CAD 58 [employer] Other MM screening mammo BI w/CAD : 1960 Acct:[id number] [employer] Other MM screening mammo BI w/CAD Age/Sex: 61 / F ADM Date: 05/23/22 [employer] Other MM screening mammo BI w/CAD Loc: [place] Room: Type: [facility] [employer] Other MM screening mammo BI w/CAD Attending Dr: Peri Tyson DO [employer] Other MM screening mammo BI w/CAD Copies to: Peri Tyson DO [employer] Other MM screening mammo BI w/CAD Ordering Provider: Peri Tyson DO [employer] Other MM screening mammo BI w/CAD Date of Service: 05/23/22 [employer] Other MM screening mammo BI w/CAD MM/MM screening mammo BI w/CAD: Breast cancer screening [employer] Other MM screening mammo BI w/CAD Bilateral Screening Full Field digital mammogram with 3-D imaging. [employer] Other MM screening mammo BI w/CAD Full field digital CC and MLO imaging performed. CAD utilized. [employer] Other MM screening mammo BI w/CAD COMPARISON: 04/17/2021 [employer] Other MM screening mammo BI w/CAD HISTORY:Screening [employer] Other MM screening mammo BI w/CAD FINDINGS: Scattered fibroglandular densities of the breast parenchyma identified. No developing [employer] Other MM screening mammo BI w/CAD architectural distortion, developing focal breast asymmetry or developing malignant calcifications [employer] Other MM screening mammo BI w/CAD identified. Scattered benign calcifications identified. [employer] Other MM screening mammo BI w/CAD MM/MM screening mammo BI w/CAD [employer] Other MM screening mammo BI w/CAD IMPRESSION:No mammographic evidence of malignancy. Routine follow-up recommended in one year. [employer] Other MM screening mammo BI w/CAD RESULT CODE: 2 [employer] Other MM screening mammo BI w/CAD Benign Findings(s) [employer] Other MM screening mammo BI w/CAD DENSITY CODE: 2 (approximately 25-50% glandular) [employer] Other MM screening mammo BI w/CAD FOLLOW UP: 1YR [employer] Other MM screening mammo BI w/CAD THE FALSE-NEGATIVE RATE OF MAMMOGRAPHY IS APPROXIMATELY 10%. [employer] Other MM screening mammo BI w/CAD IMAGING OF A PALPABLE ABNORMALITY MUST BE BASED ON CLINICAL GROUNDS. [employer] Other MM screening mammo BI w/CAD PATIENT WAS ENTERED INTO A REMINDER SYSTEM WITH A TARGET DUE DATE FOR THE NEXT MAMMOGRAM. [employer] Other MM screening mammo BI w/CAD Impression dictated by: Domenico Brown M.D.05/23/2022 12:04 PM [employer] Other MM screening mammo BI w/CAD Dictation Location: [facility] [employer] Other MM screening mammo BI w/CAD Transcribed By: RACHEL 05/23/22 1204 [employer] Other MM screening mammo BI w/CAD Dictated By: Domenico Brown DO 05/23/22 6984 [employer] Other MM screening mammo BI w/CAD Signed By: [employer] Other MM screening mammo BI w/CAD 05/23/22 1205 [employer] Other MM screening mammo BI w/CADo n 05-23-2022 MM screening mammo BI w/CAD [facility] [place] [address] [place] [address] Mammography Report Signed Patient: Kelsea Turcios MR#: [id number] 58 : 1960 Acct:[id number] Age/Sex: 61 / F ADM Date: 05/23/22 Loc: [place] Room: Type: [facility] Attending Dr: Peri Tyson DO Copies to: [...] Domenico Brown M.D.05/23/2022 12:04 PM Dictation Location: [facility] Transcribed By: RACHEL 05/23/22 1204 Dictated By: Domenico Brown DO 05/23/22 1159 Signed By: 05/23/22 1204 Normal [facility] Albumin [Mass/volume] in Ser um or PlasmaOrdered By: Peri Tyson on 05-09-2022 Albumin [Mass/Vol] 3.4 g/dL 3.2-5.5 [facility] Cholesterol [Mass/volume] in Serum or PlasmaOrdered By: Peri Tyson on 05-09-2022 Cholesterol [Mass/Vol] 149 mg/dL Normal 140-2 00 mg/dL [facility] Comment on above: Chol less than 200 m g/dl low riskChol 201-239 mg/dl borderline riskChol 240 mg/dl and greater high risk Cholesterol in LDL Calc [Mas s/Vol]Ordered By: Peri Tyson on 05-09-2022 Cholesterol in LDL [Mass/Vol] 85 mg/dL 0-100 [facility] Comment on above: LDL ATP III CLASSIFI CATIONLDL less than 100 mg/dL OptimalLDL 100-129 mg/dL Near or above optimalLDL 130-159 mg/dL Borderline highLDL 160-189 mg/dL HighLDL greater than 189 mg/dL Very high Cholesterol in VLDL Calc [Ma ss/Vol]Ordered By: Peri Tyson on 05-09-2022 Cholesterol in VLDL [Mass/Vol] 19 mg/dL [facility] Comprehensive Metabolic Pane heriberto 05-09-2022 Albumin [Mass/Vol] 3.521093 g/dL Normal 3.2-5.5 g/dL [employer] Other ALT [Catalytic activity/Vol] 41 U/L Normal 10-60 U/L [employer] Other Bilirubin [Mass/Vol] 0.7523233 mg/dL Normal 0.3- 1.2 mg/dL [employer] Other Calcium [Mass/Vol] 9.5625047 mg/dL Normal 8.2-10 .2 mg/dL [employer] Other CO2 [Moles/Vol] 30.46647677 mmol/L High 22.0-3 0.0 mmol/L [employer] Other Creatinine [Mass/Vol] 1.81171592 mg/dL High 0. 44-1.03 mg/dL [employer] Other Potassium [Moles/Vol] 4.43983571 mmol/L Normal 3 .5-5.1 mmol/L [employer] Other Protein [Mass/Vol] 7.354945 g/dL Normal 6.1-7.9 g/dL [employer] [facility] Other Comprehensive Metabolic Panel 45 [employer] Other Comprehensive Metabolic Panel 55 [employer] Other Comprehensive Metabolic Panel 4.2 g/dL [employer] Other Creatinine and Glomerular fi ltration rate.predicted panel (S/P/Bld)Ordered By: Peri Tyson on 05-09-2022 Creatinine [Mass/Vol] 1.20 mg/dL 0.44-1.03 [facility] Estimated glomerular filtrat ion rate (GFR) non- AmericanOrdered By: Peri Tyson on 05-09-2022 GFR/1.73 sq M.predicted among non-blacks MDRD (S/P/Bld) [Vol rate/Area] 45 mL/Min [facility] Globulin Calc (S) [Mass/Vol] Ordered By: Peri Tyson on 05-09-2022 Globulin (S) [Mass/Vol] 4.2 g/dL [facility] Lipid Panelon 05-09-2022 Cholesterol in LDL Elph Qn 85 mg/dL Normal 0-100 mg/dL [employer] Other Lipid Panel 96 mg/dL Normal 35-149 mg/dL [employer] Other Lipid Panel 19 mg/dL [employer] Other Microalbumin, Urine (Random) on 05-09-2022 Albumin DL <= 20 mg/L (U) [Mass/Vol] 0.8643954 mg/dL Normal 0.0-1.8 mg/dL [employer] Other No Panel InformationOrdered By: Peri Tyson on 05-09-2022 Estimated GFR () 55 mL/Min [facility] Comment on above: GFR estimated refere nce range: According to KDOQI guidelines, <60 ml/min/1.73m2 is sufficient to diagnose a patient with chronic kidney disease. Pharmacy Creatinine Clearance (Chem N/A [facility] Protein [Mass/volume] in Ser um or PlasmaOrdered By: Peri Tyson on 05-09-2022 Protein [Mass/Vol] 7.6 g/dL 6.1-7.9 [facility] Serum or plasma alanine borden otransferase measurement without P-5'-P (enzymatic activiOrdered By: Peri Tyson on 05-09-2022 ALT No additional P-5'-P [Catalytic activity/Vol] 41 U/L 10-60 [facility] Serum or plasma albumin/glob ulin mass ratioOrdered By: Peri Tyson on 05-09-2022 Albumin/Globulin [Mass ratio] 0.8 {ratio} [facility] Serum or plasma alkaline mo sphatase measurement (enzymatic activity/volume)Ordered By: Peri Tyson on 05-09-2022 ALP [Catalytic activity/Vol] 137 U/L High 32-92 U/L [facility] Serum or plasma anion gap de terminationOrdered By: Peri Tyson on 05-09-2022 Anion gap [Moles/Vol] 13.1 mmol/L 6.0-15.0 [facility] Serum or plasma aspartate am inotransferase measurement (enzymatic activity/volume)Ordered By: Peri Tyson on 05-09-2022 AST [Catalytic activity/Vol] 49 U/L High 10-42 U/L [facility] Serum or plasma calcium monique urement (mass/volume)Ordered By: Peri Tyson on 05-09-2022 Calcium [Mass/Vol] 9.5 mg/dL 8.2-10.2 [facility] Serum or plasma chloride janeth surement (moles/volume)Ordered By: Peri Tyson on 05-09-2022 Chloride [Moles/Vol] 98 mmol/L Normal 95-114 mmol/L [facility] Serum or plasma glucose monique urement (mass/volume)Ordered By: Peri Tyson on 05-09-2022 Glucose [Mass/Vol] 186 mg/dL High 70-100 mg/dL [facility] Comment on above: ADA recommended refe rence rangeRandom Glucose Reference Range is dependent on time and content of last meal. Glucose of more than 200 mg/dL in a nonstressed, ambulatory subject supports the diagnosis of Diabetes Mellitus. Serum or plasma high density lipoprotein (HDL) cholesterol measurementOrdered By: Peri Tyson on 05-09-2022 Cholesterol in HDL [Mass/Vol] 45 mg/dL Normal 35-85 mg/dL [facility] Comment on above: HDL CHOL ATP-III CLA SSIFICATION Cardiovascular RiskHDL > or equal to 60 mg/dL LOWHDL < 40 mg/dL HIGH Serum or plasma potassium me asurement (moles/volume)Ordered By: Peri Tyson on 05-09-2022 Potassium [Moles/Vol] 4.0 mmol/L 3.5-5.1 [facility] Serum or plasma sodium measu rement (moles/volume)Ordered By: Peri Tyson on 05-09-2022 Sodium [Moles/Vol] 138 mmol/L Normal 136-146 mmol/L [facility] Serum or plasma total biliru bin measurement (mass/volume)Ordered By: Peri Tyson on 05-09-2022 Bilirubin [Mass/Vol] 0.4 mg/dL 0.3-1.2 [facility] Serum or plasma total carbon dioxide measurement (moles/volume)Ordered By: Peri Tyson on 05-09-2022 CO2 [Moles/Vol] 30.9 mmol/L 22.0-30.0 [facility] Serum or plasma total choles terol/high density lipoprotein (HDL) cholesterol mass ratOrdered By: Peri Tyson on 05-09-2022 Cholesterol.total/Shahla sterol in HDL [Mass ratio] 3.3 {ratio} <5.0 [facility] Serum or plasma urea nitroge n measurement (mass/volume)Ordered By: Peri Tyson on 05-09-2022 Urea nitrogen [Mass/Vol] 11 mg/dL Normal 9-23 mg/dL [facility] TSH DL <= 0.005 mIU/L QnOrde red By: Peri Tyson on 05-09-2022 TSH Qn 2.51 m[IU]/L 0.45-5.33 [facility] Thyroid Stim Hormone w/Rflxo n 05-09-2022 Thyroid Stim Hormone w/Rflx 2.51 u[iU]/mL Normal 0.45-5.33 u[iU]/mL [facility] [employer] Other Triglyceride [Mass/volume] i n Serum or PlasmaOrdered By: Prei Tyson on 05-09-2022 Triglyceride [Mass/Vol] 96 mg/dL 35-149 [facility] Comment on above: TRIG ATP III CLASSIF [...] 20 mg/L (U) [Mass/Vol] 0.6 mg/dL 0.0-1.8 [facility] A1C HEMOGLOBINon 05-07-2022 HbA1c (Bld) [Mass fraction] 7.6 % [employer] Other HbA1c (Bld) [Mass fraction]o n 05-07-2022 A1C HEMOGLOBIN [facility] Other Albumin [Mass/volume] in Ser um or PlasmaOrdered By: Roxane Bills on 04-17-2022 Albumin [Mass/Vol] 3.2 g/dL 3.2-5.5 [facility] Albumin [Mass/Vol] 3.4 g/dL 2.9-4.4 [facility] Basophils Auto (Bld) [#/Vol] Ordered By: Roxane Bills on 04-17-2022 Basophils (Bld) [#/Vol] 0.1 10*3/uL 0.0-0.2 [facility] Basophils/100 WBC Auto (Bld) Ordered By: Roxane Bills on 04-17-2022 Basophils/100 WBC (Bld) 0.5 % . [facility] CT biopsyOrdered By: Roxane Garibay se on 04-17-2022 Transferrin [Mass/Vol] 247 mg/dL 180-380 [facility] Creatinine and Glomerular fi ltration rate.predicted panel (S/P/Bld)Ordered By: Roxane Bills on 04-17-2022 Creatinine [Mass/Vol] 1.26 mg/dL 0.44-1.[address] [facility] Eosinophils Auto (Bld) [#/Vo l]Ordered By: Roxane Bills on 04-17-2022 Eosinophils (Bld) [#/Vol] 0.6 10*3/uL 0.0-0.45 [facility] Eosinophils/100 WBC Auto (Bl d)Ordered By: Roxane Bills on 04-17-2022 Eosinophils/100 WBC (Bld) 5.9 % . [facility] Erythrocyte distribution wid th Auto (RBC) [Ratio]Ordered By: Roxane Bills on 04-17-2022 Erythrocyte distribution width (RBC) [Ratio] 15.7 % 11.9-15.3 [facility] Estimated glomerular filtrat ion rate (GFR) non- AmericanOrdered By: Roxane Bills on 04-17-2022 GFR/1.73 sq M.predicted among non-blacks MDRD (S/P/Bld) [Vol rate/Area] 43 mL/Min [facility] Ferritin [Mass/volume] in Se rum or PlasmaOrdered By: Roxane Bills on 04-17-2022 Ferritin [Mass/Vol] 72.6 ng/mL 11-306.8 [facility] Globulin Calc (S) [Mass/Vol] Ordered By: Roxane Bills on 04-17-2022 Globulin (S) [Mass/Vol] 3.8 g/dL [facility] Hematocrit Auto (Bld) [Volum e fraction]Ordered By: Roxane Bills on 04-17-2022 Hematocrit (Bld) [Volume fraction] 35.4 % 34.0-46.4 [facility] Hemoglobin [Mass/volume] in BloodOrdered By: Roxane Bills on 04-17-2022 Hemoglobin (Bld) [Mass/Vol] 11.2 g/dL 11.8-15.4 [facility] IgA [Mass/volume] in Serum o r PlasmaOrdered By: Roxane Bills on 04-17-2022 IgA [Mass/Vol] 625 mg/dL 87-352 [facility] IgG [Mass/volume] in Serum o r PlasmaOrdered By: Roxane Bills on 04-17-2022 IgG [Mass/Vol] 1443 mg/dL 586-1602 [facility] IgM [Mass/volume] in Serum o r PlasmaOrdered By: Roxane Bills on 04-17-2022 IgM [Mass/Vol] 98 mg/dL 26-217 [facility] Comment on above: Performed at: [email or web address] [place] [address] [id number] Director: Jhoan Rich PhD, Phone: [phone] Immunoglobulin light chains. kappa.free [Mass/volume] in SerumOrdered By: Roxane Bills on 04-17-2022 Immunoglobulin light chains.kappa.free (S) [Mass/Vol] 162.6 mg/L 3.3-19.4 [facility] Immunoglobulin light chains. kappa.free/Immunoglobulin light chains.lambda.free [MassOrdered By: Roxane Bills on 04-17-2022 Immunoglobulin light chains.kappa.free/Immun oglobulin light chains.lambda.free (S) [Mass ratio] 3.65 0.26-1.65 [facility] Comment on above: Performed at: [facility] [place] [address] [id number] Director: Jhoan Rich PhD, Phone: [phone] Immunoglobulin light chains. lambda.free [Mass/volume] in Serum or PlasmaOrdered By: Roxane Bills on 04-17-2022 Immunoglobulin light chains.lambda.free [Mass/Vol] 44.5 mg/L 5.7-26.3 [facility] Iron [Mass/volume] in Serum or PlasmaOrdered By: Roxane Bills on 04-17-2022 Iron [Mass/Vol] 53 ug/dL 40-150 [facility] Iron binding capacity [Mass/ volume] in Serum or PlasmaOrdered By: Roxane Bills on 04-17-2022 Iron binding capacity [Mass/Vol] 346 ug/dL 255-450 [facility] Iron saturation [Mass Fracti on] in Serum or PlasmaOrdered By: Roxane Bills on 04-17-2022 Iron saturation [Mass fraction] 15.3 % 20-50 [facility] Laboratory - Chemistry and C hemistry - challengeOrdered By: Roxane Bills on 04-17-2022 Protein [Mass/Vol] 0.4 g/dL Not Observed [facility] Leukocytes [#/volume] correc shan for nucleated erythrocytes in Blood by Automated counOrdered By: Roxane Bills on 04-17-2022 WBC corrected for nucl RBC Auto (Bld) [#/Vol] 10.8 10*3/uL 3.8-11.6 [facility] Lymphocytes Auto (Bld) [#/Vo l]Ordered By: Roxane Bills on 04-17-2022 Lymphocytes (Bld) [#/Vol] 2.6 10*3/uL 1.00-4.8 [facility] Lymphocytes/100 WBC Auto (Bl d)Ordered By: Roxane Bills on 04-17-2022 Lymphocytes/100 WBC (Bld) 24.5 % . [facility] MCH Auto (RBC) [Entitic mass ]Ordered By: Roxane Bills on 04-17-2022 MCH (RBC) [Entitic mass] 27.9 pg 24.7-34.3 [facility] MCHC Auto (RBC) [Mass/Vol]Or dered By: Roxane Bills on 04-17-2022 MCHC (RBC) [Mass/Vol] 31.6 g/dL 32.0-35.0 [facility] MCV Auto (RBC) [Entitic vol] Ordered By: Roxane Bills on 04-17-2022 MCV (RBC) [Entitic vol] 88.1 fL 80-100 [facility] Monocytes Auto (Bld) [#/Vol] Ordered By: Roxane Bills on 04-17-2022 Monocytes (Bld) [#/Vol] 0.8 10*3/uL 0.0-0.8 [facility] Monocytes/100 WBC Auto (Bld) Ordered By: Roxane Bills on 04-17-2022 Monocytes/100 WBC (Bld) 7.9 % . [facility] Neutrophils Auto (Bld) [#/Vo l]Ordered By: Roxane Bills on 04-17-2022 Neutrophils (Bld) [#/Vol] 6.6 10*3/uL 1.8-7.7 [facility] Neutrophils/100 WBC Auto (Bl d)Ordered By: Roxane Bills on 04-17-2022 Neutrophils/100 WBC (Bld) 61.2 % . [facility] No Panel InformationOrdered By: Roxane Bills on 04-17-2022 Estimated GFR () 52 mL/Min [facility] Comment on above: GFR estimated refere nce range: According to KDOQI guidelines, <60 ml/min/1.73m2 is sufficient to diagnose a patient with chronic kidney disease. Pharmacy Creatinine Clearance (Chem 51.63 [facility] Protein Electrophoresis Note See comment . [facility] Comment on above: Protein electrophore sis scan will follow via computer,mail, or busboy delivery.Performed at: [facility] [id number] Director: Jhoan Rich PhD, Phone: [phone] Nucleated erythrocytes [Pres ence] in Blood by Automated countOrdered By: Roxane Bills on 04-17-2022 Nucleated RBC Auto Ql (Bld) 0.2 /100{WBC} 0-0.5 [facility] Platelet mean volume Auto (B ld) [Entitic vol]Ordered By: Roxane Bills on 04-17-2022 Platelet mean volume (Bld) [Entitic vol] 7.6 fL 6.3-10.7 [facility] Platelets Auto (Bld) [#/Vol] Ordered By: Roxane Bills on 04-17-2022 Platelets (Bld) [#/Vol] 273 10*3/uL 150-450 [facility] Protein [Mass/volume] in Ser um or PlasmaOrdered By: Roxane Bills on 04-17-2022 Protein [Mass/Vol] 7.0 g/dL 6.1-7.9 [facility] Protein [Mass/Vol] 7.3 g/dL 6.0-8.5 [facility] RBC Auto (Bld) [#/Vol]Ordere d By: Roxane Bills on 04-17-2022 RBC (Bld) [#/Vol] 4.02 10*6/uL 3.60-5.00 [facility] Serum globulin measurement ( mass/volume)Ordered By: Roxane Bills on 04-17-2022 Globulin (S) [Mass/Vol] 3.9 g/dL 2.2-3.9 [facility] Serum or plasma alanine borden otransferase measurement without P-5'-P (enzymatic activiOrdered By: Roxane Bills on 04-17-2022 ALT No additional P-5'-P [Catalytic activity/Vol] 22 U/L 10-60 [facility] Serum or plasma albumin/glob ulin mass ratioOrdered By: Roxane Bills on 04-17-2022 Albumin/Globulin [Mass ratio] 0.8 {ratio} [facility] Albumin/Globulin [Mass ratio] 0.9 {ratio} 0.7-1.7 [facility] Serum or plasma alkaline mo sphatase measurement (enzymatic activity/volume)Ordered By: Roxane Bills on 04-17-2022 ALP [Catalytic activity/Vol] 121 U/L 32-92 [facility] Serum or plasma alpha 1 glob ulin measurement by electrophoresis (mass/volume)Ordered By: Roxane Bills on 04-17-2022 Alpha 1 globulin Elph [Mass/Vol] 0.3 g/dL 0.0-0.4 [facility] Serum or plasma alpha 2 glob ulin measurement by electrophoresis (mass/volume)Ordered By: Roxane Bills on 04-17-2022 Alpha 2 globulin Elph [Mass/Vol] 0.9 g/dL 0.4-1.0 [facility] Serum or plasma anion gap de terminationOrdered By: Roxane Bills on 04-17-2022 Anion gap [Moles/Vol] 12.8 mmol/L 6.0-15.0 [facility] Serum or plasma aspartate am inotransferase measurement (enzymatic activity/volume)Ordered By: Roxane Bills on 04-17-2022 AST [Catalytic activity/Vol] 23 U/L 10-42 [facility] Serum or plasma beta globuli n measurement by electrophoresis (mass/volume)Ordered By: Roxane Bills on 04-17-2022 Beta globulin Elph [Mass/Vol] 1.4 g/dL 0.7-1.3 [facility] Serum or plasma calcium monique urement (mass/volume)Ordered By: Roxane Bills on 04-17-2022 Calcium [Mass/Vol] 9.1 mg/dL 8.2-10.2 [facility] Serum or plasma chloride janeth surement (moles/volume)Ordered By: Roxane Bills on 04-17-2022 Chloride [Moles/Vol] 98 mmol/L 95-114 [facility] Serum or plasma gamma globul in measurement by electrophoresis (mass/volume)Ordered By: Roxane Bills on 04-17-2022 Gamma globulin Elph [Mass/Vol] 1.3 g/dL 0.4-1.8 [facility] Serum or plasma glucose monique urement (mass/volume)Ordered By: Roxane Bills on 04-17-2022 Glucose [Mass/Vol] 269 mg/dL 70-100 [facility] Comment on above: ADA recommended refe rence rangeRandom Glucose Reference Range is dependent on time and content of last meal. Glucose of more than 200 mg/dL in a nonstressed, ambulatory subject supports the diagnosis of Diabetes Mellitus. Serum or plasma potassium me asurement (moles/volume)Ordered By: Roxane Bills on 04-17-2022 Potassium [Moles/Vol] 3.5 mmol/L 3.5-5.1 [facility] Serum or plasma sodium measu rement (moles/volume)Ordered By: Roxane Bills on 04-17-2022 Sodium [Moles/Vol] 138 mmol/L 136-146 [facility] Serum or plasma total biliru bin measurement (mass/volume)Ordered By: Roxane Bills on 04-17-2022 Bilirubin [Mass/Vol] 0.3 mg/dL 0.3-1.2 [facility] Serum or plasma total carbon dioxide measurement (moles/volume)Ordered By: Roxane Bills on 04-17-2022 CO2 [Moles/Vol] 30.7 mmol/L 22.0-30.0 [facility] Serum or plasma urea nitroge n measurement (mass/volume)Ordered By: Roxane Bills on 04-17-2022 Urea nitrogen [Mass/Vol] 17 mg/dL 01-03 [facility] WBC Auto (Bld) [#/Vol]Ordere d By: Roxane Bills on 04-17-2022 WBC (Bld) [#/Vol] 10.8 10*3/uL 3.8-11.6 [facility] Urine culture routineOrdered By: Peri Tyson on 02-05-2022 Bacteria identified Cx Nom (U) Strep. agalactiae Grp B [facility] A1C HEMOGLOBINon 02-03-2022 HbA1c (Bld) [Mass fraction] 7.0 % [employer] Other Urinalysis - AUTOMATEDon Appearance (U) cloudy [employer] Other Bilirubin Ql (U) Negative [facility] Other Color (U) yellow [employer] Other Glucose Ql (U) 500 [employer] Other Hemoglobin Ql (U) Negative [employer] Other Ketones Ql (U) Negative [employer] Other Leukocyte esterase Test strip Ql (U) small [employer] Other Nitrite Ql (U) Negative [employer] Other pH (U) 5.5 [pH] [employer] Other Protein Ql (U) Negative [employer] Other Specific gravity (U) [Rel density] 1.010 [employer] Other Urobilinogen (U) [Mass/Vol] 0.2 mg/dL [employer] Other [facility]inalysis - AUTOMATED [facility] Other Urine culture routineOrdered By: Peri Tyson on 02-03-2022 Bacteria identified Cx Nom (U) Strep. agalactiae Grp B [facility] Urine culture routineOrdered By: Peri Tyson on 12-25-2021 Bacteria identified Cx Nom (U) Strep. agalactiae Grp B [facility] Drugs identified in UrineOrd ered By: Peri Tyson on 12-23-2021 Drugs identified Nom (U) Final . [facility] Comment on above: ======TOXASSURE COMP DRUG ANALYSIS,UR [...] clinical consultation, please call . Performed at: [facility] [address] [id number] Director: Tomasa Alegria [facility], Phone: [phone] Urinalysis - AUTOMATEDon Appearance (U) clear [employer] Other Bilirubin Ql (U) Negative [employer] [facility] Other Color (U) yellow [employer] Other Glucose Ql (U) 1000 [employer] Other Hemoglobin Ql (U) Negative [facility] Other Ketones Ql (U) Negative [employer] Other Leukocyte esterase Test strip Ql (U) trace [employer] Other Nitrite Ql (U) Negative [employer] Other pH (U) 7.0 [pH] [employer] Other Protein Ql (U) Negative [employer] Other Specific gravity (U) [Rel density] 1.010 [facility] Other Urobilinogen (U) [Mass/Vol] 0.2 mg/dL [employer] Other Urinalysis - AUTOMATED No rt [employer] Other CT biopsyOrdered By: Roxane Garibay se on 10-23-2021 Transferrin [Mass/Vol] 290 mg/dL 180-380 [facility] Ferritin [Mass/volume] in Se rum or PlasmaOrdered By: Roxane Bills on 10-23-2021 Ferritin [Mass/Vol] 76.6 ng/mL 11-306.8 [facility] Iron [Mass/volume] in Serum or PlasmaOrdered By: Roxane Bills on 10-23-2021 Iron [Mass/Vol] 64 ug/dL 40-150 [facility] Iron binding capacity [Mass/ volume] in Serum or PlasmaOrdered By: Roxnae Bills on 10-23-2021 Iron binding capacity [Mass/Vol] 406 ug/dL 255-450 [facility] Iron saturation [Mass Fracti on] in Serum or PlasmaOrdered By: Roxane Bills on 10-23-2021 Iron saturation [Mass fraction] 15.0 % 20-50 [facility] A1C HEMOGLOBINon 10-21-2021 HbA1c (Bld) [Mass fraction] 7.2 % [facility] Other Basic Metabolic PanelOrdered By: Laureen Moreno on 10-21-2021 Chloride [Moles/Vol] 100 mmol/L 95-114 [facility] Glucose [Mass/Vol] 268 mg/dL 70-100 [facility] Comment on above: ADA recommended refe rence range Random Glucose Reference Range is dependent on time and content of last meal. Glucose of more than 200 mg/dL in a nonstressed, ambulatory subject supports the diagnosis of Diabetes Mellitus. Sodium [Moles/Vol] 139 mmol/L 136-146 [facility] Urea nitrogen [Mass/Vol] 18 mg/dL 9-23 [facility] Basic Metabolic Panelon 10-11 Calcium [Mass/Vol] 9.7139090 mg/dL Normal 8.2-10 .2 mg/dL [facility] Other CO2 [Moles/Vol] 29.17718390 mmol/L Normal 22.0-3 0.0 mmol/L [facility] Other Creatinine [Mass/Vol] 1.69210177 mg/dL High 0. 44-1.03 mg/dL [facility] Other Potassium [Moles/Vol] 4.23456034 mmol/L Normal 3 .5-5.1 mmol/L [facility] Other Basic Metabolic Panel 33 [facility] Other Creatinine and Glomerular fi ltration rate.predicted panel (S/P/Bld)Ordered By: Laureen Moreno on 10-21-2021 Creatinine [Mass/Vol] 1.57 mg/dL 0.44-1.03 [facility] Estimated glomerular filtrat ion rate (GFR) non- AmericanOrdered By: Laureen Moreno on 10-21-2021 GFR/1.73 sq M.predicted among non-blacks MDRD (S/P/Bld) [Vol rate/Area] 33 mL/Min [facility] HbA1c (Bld) [Mass fraction]o n 10-21-2021 A1C HEMOGLOBIN [facility] Other No Panel InformationOrdered By: Laureen Moreno on 10-21-2021 Estimated GFR () 40 mL/Min [facility] Comment on above: GFR estimated refere nce range: According to KDOQI guidelines, <60 ml/min/1.73m2 is sufficient to diagnose a patient with chronic kidney disease. Pharmacy Creatinine Clearance (Chem N/A [facility] Serum or plasma calcium monique urement (mass/volume)Ordered By: Laureen Moreno on 10-21-2021 Calcium [Mass/Vol] 9.6 mg/dL 8.2-10.2 [facility] Serum or plasma potassium me asurement (moles/volume)Ordered By: Laureen Moreno on 10-21-2021 Potassium [Moles/Vol] 4.7 mmol/L 3.5-5.1 [facility] Serum or plasma total carbon dioxide measurement (moles/volume)Ordered By: Laureen Moreno on 10-21-2021 CO2 [Moles/Vol] 29.0 mmol/L 22.0-30.0 [facility] Activated partial thrombopla stin time (aPTT) in platelet poor plasma by coagulation aOrdered By: Roxane Bills on 09-26-2021 aPTT Coag (PPP) [Time] 33.0 s 25.1-36.5 [facility] Basophils Auto (Bld) [#/Vol] Ordered By: Roxane Bills on 09-26-2021 Basophils (Bld) [#/Vol] 0.1 10*3/uL 0.0-0.2 [facility] Basophils/100 WBC Auto (Bld) Ordered By: Roxane Bills on 09-26-2021 Basophils/100 WBC (Bld) 0.5 % . [facility] Blood hemoglobin measurement (mass/volume)Ordered By: Roxane Bills on 09-26-2021 Hemoglobin (Bld) [Mass/Vol] 11.4 g/dL 11.8-15.4 [facility] Blood leukocytes automated c ount (number/volume)Ordered By: Roxane Bills on 09-26-2021 WBC (Bld) [#/Vol] 11.1 10*3/uL 4.5-11.0 [facility] Eosinophils Auto (Bld) [#/Vo l]Ordered By: Roxane Bills on 09-26-2021 Eosinophils (Bld) [#/Vol] 0.8 10*3/uL 0.0-0.45 [facility] Eosinophils/100 WBC Auto (Bl d)Ordered By: Roxane Bills on 09-26-2021 Eosinophils/100 WBC (Bld) 7.7 % . [facility] Erythrocyte distribution wid th Auto (RBC) [Ratio]Ordered By: Roxane Bills on 09-26-2021 Erythrocyte distribution width (RBC) [Ratio] 14.5 % 11.9-15.3 [facility] Hematocrit Auto (Bld) [Volum e fraction]Ordered By: Roxane Bills on 09-26-2021 Hematocrit (Bld) [Volume fraction] 35.3 % 34.0-46.4 [facility] Laboratory - CoagulationOrde red By: Roxane Bills on 09-26-2021 PT Coag (PPP) [Time] 13.9 s 9.0-12.9 [facility] Laboratory - Hematology and Cell countsOrdered By: Roxane Bills on 09-26-2021 Nucleated RBC/100 WBC (Bld) [Ratio] 0.1 % 0-0.5 [facility] Lymphocytes Auto (Bld) [#/Vo l]Ordered By: Roxane Bills on 09-26-2021 Lymphocytes (Bld) [#/Vol] 2.4 10*3/uL 1.00-4.8 [facility] Lymphocytes/100 WBC Auto (Bl d)Ordered By: Roxane Bills on 09-26-2021 Lymphocytes/100 WBC (Bld) 21.6 % . [facility] MCH Auto (RBC) [Entitic mass ]Ordered By: Roxane Bills on 09-26-2021 MCH (RBC) [Entitic mass] 28.3 pg 24.7-34.3 [facility] MCHC Auto (RBC) [Mass/Vol]Or dered By: Roxane Bills on 09-26-2021 MCHC (RBC) [Mass/Vol] 32.1 g/dL 32.0-35.[address] [facility] MCV Auto (RBC) [Entitic vol] Ordered By: Roxane Bills on 09-26-2021 MCV (RBC) [Entitic vol] 88.0 fL 80-100 [facility] Monocytes Auto (Bld) [#/Vol] Ordered By: Roxane Bills on 09-26-2021 Monocytes (Bld) [#/Vol] 0.9 10*3/uL 0.0-0.8 [facility] Monocytes/100 WBC Auto (Bld) Ordered By: Roxane Bills on 09-26-2021 Monocytes/100 WBC (Bld) 7.8 % . [facility] Neutrophils Auto (Bld) [#/Vo l]Ordered By: Roxane Bills on 09-26-2021 Neutrophils (Bld) [#/Vol] 6.9 10*3/uL 1.8-7.7 [facility] Neutrophils/100 WBC Auto (Bl d)Ordered By: Roxane Bills on 09-26-2021 Neutrophils/100 WBC (Bld) 62.4 % . [facility] Platelet mean volume Auto (B ld) [Entitic vol]Ordered By: Roxane Bills on 09-26-2021 Platelet mean volume (Bld) [Entitic vol] 7.5 fL 6.3-10.7 [facility] Platelet poor plasma interna tional normalized ratio (INR) by coagulation assay (relatOrdered By: Roxane Bills on 09-26-2021 INR Coag (PPP) [Relative time] 1.2 {INR} [facility] Comment on above: INR Therapeutic Rang e [...] 09-26-2021 Platelets (Bld) [#/Vol] 302 10*3/uL 150-450 [facility] RBC Auto (Bld) [#/Vol]Ordere d By: Roxane Bills on 09-26-2021 RBC (Bld) [#/Vol] 4.01 10*6/uL 3.60-5.00 [facility] Albumin/Protein.total in 24 hour Urine by ElectrophoresisOrdered By: Roxane Bills on 08-16-2021 Albumin Elph (24H U) [Mass fraction] 27.8 % . [facility] Creatinine [Mass/volume] in UrineOrdered By: Roxane Bills on 08-16-2021 Creatinine (U) [Mass/Vol] 35.9 mg/dL [facility] Comment on above: No reference range e stablished Gamma globulin/Protein.total in 24 hour Urine by ElectrophoresisOrdered By: Roxane Bills on 08-16-2021 Gamma globulin Elph (24H U) [Mass fraction] 24.3 % . [facility] Immunofixation for UrineOrde red By: Roxane Bills on 08-16-2021 Interpretation Immunofixation (U) [Interp] See comment . [facility] Comment on above: No monoclonality det ected. Performed at: [facility] [id number] Waist Pleater: Jhoan Rich PhD, Phone: [phone] No monoclonality det ected.Performed at: [facility] [employer] [facility] [id number] Director: Jhoan Rich PhD, Phone: [phone] Immunoglobulin light chains. kappa.free [Mass/volume] in SerumOrdered By: Roxane Bills on 08-16-2021 Immunoglobulin light chains.kappa.free (S) [Mass/Vol] 73.6 mg/L 3.3-19.4 [facility] Immunoglobulin light chains. kappa.free/Immunoglobulin light chains.lambda.free [MassOrdered By: Roxane Bills on 08-16-2021 Immunoglobulin light chains.kappa.free/Immun oglobulin light chains.lambda.free (S) [Mass ratio] 2.52 0.26-1.65 [facility] Comment on above: Performed at: [facility] [address] [id number] Waist Pleater: Jhoan Rich PhD, Phone: [phone] Immunoglobulin light chains. lambda.free [Mass/volume] in Serum or PlasmaOrdered By: Roxane Bills on 08-16-2021 Immunoglobulin light chains.lambda.free [Mass/Vol] 29.2 mg/L 5.7-26.3 [facility] No Panel InformationOrdered By: Roxane Bills on 08-16-2021 Urine Random Prot Electrophor Note See comment . [facility] Comment on above: Protein electrophore sis scan will follow via computer, mail, or busboy delivery. Protein electrophoresis scan will follow via computer, mail, or busboy delivery. Performed at: [facility] [id number] Waist Pleater: Jhoan Rcih PhD, Phone: [phone] --- 08/20/211408 --- Please Note: previously reported as: Protein electrophoresis scan will follow via computer, mail, or busboy delivery. Protein electrophore sis scan will follow via computer,mail, or busboy delivery. Protein electrophoresis scan will follow via computer,mail, or busboy delivery.Performed at: [facility], [place] [id number] Director: Jhoan Rich PhD, Phone: [phone] --- 08/20/211408 ---Please Note: previously reported as: Protein electrophoresis scan will follow via computer,mail, or busboy delivery. Protein [Mass/volume] in Uri neOrdered By: Roxane Bills on 08-16-2021 Protein (U) [Mass/Vol] 4.8 mg/dL Not Estab. [facility] Protein.monoclonal/Protein.t otal in 24 hour Urine by ElectrophoresisOrdered By: Roxane Bills on 08-16-2021 Protein.monoclonal Elph (24H U) [Mass fraction] Not observed % Not Observed [facility] Serum or plasma [id number] globulin measurement (mass/volume)Ordered By: Roxane Bills on 08-16-2021 [id number] [Mass/Vol] 4.9 ug/mL 0.6-2.4 [facility] Comment on above: Siemens Immulite 200 0 Immunochemiluminometric assay (ICMA) Values obtained with different assay methods or kits cannot be used interchangeably. Results cannot be interpreted as absolute evidence of the presence or absence of malignant disease. Performed at: [address] [id number] Waist Pleater: Betty Bah MD, Phone: [phone] Siemens Immulite 200 0 Immunochemiluminometric assay (ICMA)Values obtained with different assay methods or kits cannotbe used interchangeably. Results cannot be interpreted asabsolute evidence of the presence or absence of malignantdisease.Performed at: [address] [id number] Director: Betty Bah MD, Phone: [phone] Urine alpha 1 globulin/total protein by electrophoresisOrdered By: Roxane Bills on 08-16-2021 Alpha 1 globulin Elph (U) [Mass fraction] 3.9 % . [facility] Urine alpha 2 globulin/total protein ratio by electrophoresisOrdered By: Roxane Bills on 08-16-2021 Alpha 2 globulin Elph (U) [Mass fraction] 11.3 % . [facility] Urine beta globulin measurem ent by electrophoresis (mass/volume)Ordered By: Roxane Bills on 08-16-2021 Beta globulin Elph (U) [Mass/Vol] 32.8 % . [facility] A1C HEMOGLOBINon 05-23-2021 HbA1c (Bld) [Mass fraction] 6.7 % [facility] Other HbA1c (Bld) [Mass fraction]o n 05-23-2021 A1C HEMOGLOBIN [employer] Other Thyroid Stim Hormone w/Rflxo n 04-02-2021 Thyroid Stim Hormone w/Rflx 3.31 0.45-5.33 [employer] Other Vital Signs Date Time Vital Sign Value Performing Clinician Lola jenkins 05-27-2023 09:16-0500 Body height 152.4 cm DO Christopher Germain Work Phone: [facility] 05-27-2023 09:16-0500 Body mass index (BMI) [Ratio] 48.8 kg/m2 DO Christopher Germain Work Phone: [facility] 05-27-2023 09:16-0500 Body temperature 96.4 [degF] DO Christopher Germain Work Phone: [facility] 05-27-2023 09:16-0500 Body weight 113.39 kg DO Christopher Germain Work Phone: [facility] 05-27-2023 09:16-0500 Diastolic blood pressure 70 mm[Hg] DO Christopher Germain Work Phone: [facility] 05-27-2023 09:16-0500 Heart rate 74 /min DO Christopher Germain Work Phone: [facility] 05-27-2023 09:16-0500 SaO2% (BldA) [Mass fraction] 98 % DO Christopher Germain Work Phone: [facility] 05-27-2023 09:16-0500 Systolic blood pressure 124 mm[Hg] DO Christopher Germain Work Phone: [facility] 05-12-2023 08:28-0500 Body height 152.4 cm DO Christopher Germain Work Phone: [facility] 05-12-2023 08:28-0500 Body mass index (BMI) [Ratio] 48.8 kg/m2 DO Christopher Germain Work Phone: [facility] 05-12-2023 08:28-0500 Body weight 113.39 kg DO Christopher Germain Work Phone: [facility] 05-12-2023 08:17-0500 Body temperature 97.3 [degF] DO Peri Tyson Work Phone: [facility] 05-12-2023 08:17-0500 Diastolic blood pressure 85 mm[Hg] DO Peri Tyson Work Phone: [facility] 05-12-2023 08:17-0500 Heart rate 114 /min DO Peri Tyson Work Phone: [facility] 05-12-2023 08:17-0500 Respiratory rate 18 /min DO Peri Tyson Work Phone: [facility] 05-12-2023 08:17-0500 Systolic blood pressure 189 mm[Hg] DO Peri Tyson Work Phone: [facility] 04-28-2023 09:09-0500 Body height 152.4 cm DO Peri Tyson Work Phone: [facility] 04-28-2023 09:09-0500 Body mass index (BMI) [Ratio] 48.8 kg/m2 DO Peri Tyson Work Phone: [facility] 04-28-2023 09:09-0500 Body weight 113.39 kg DO Peri Tyson Work Phone: [facility] 04-28-2023 08:50-0500 Body temperature 97 [degF] DO Peri Tyson Work Phone: [facility] 04-28-2023 08:50-0500 Diastolic blood pressure 82 mm[Hg] DO Peri Tyson Work Phone: [facility] 04-28-2023 08:50-0500 Heart rate 106 /min DO Peri Tyson Work Phone: [facility] 04-28-2023 08:50-0500 Inhaled oxygen flow rate 4 L/min DO Peri Tyson Work Phone: [facility] 04-28-2023 08:50-0500 Respiratory rate 20 /min DO Peri Tyson Work Phone: [facility] 04-28-2023 08:50-0500 Systolic blood pressure 138 mm[Hg] DO Peri Tyson Work Phone: [facility] 03-04-2023 13:28-0500 Body temperature 97.6 [degF] DO Peri Tyson Work Phone: [facility] 03-04-2023 13:28-0500 Body weight 110.22 kg DO Peri Tyson Work Phone: [facility] 03-04-2023 13:28-0500 Diastolic blood pressure 89 mm[Hg] DO Peri Tyson Work Phone: [facility] 03-04-2023 13:28-0500 Heart rate 87 /min DO Peri Tyson Work Phone: [facility] 03-04-2023 13:28-0500 Inhaled oxygen flow rate 4 L/min DO Peri Tyson Work Phone: [facility] 03-04-2023 13:28-0500 Respiratory rate 16 /min DO Peri Tyson Work Phone: [facility] 03-04-2023 13:28-0500 SaO2% (BldA) [Mass fraction] 97 % DO Peri Tyson Work Phone: [facility] 03-04-2023 13:28-0500 Systolic blood pressure 172 mm[Hg] DO Peri Tyson Work Phone: [facility] 02-12-2023 10:15-0400 Diastolic blood pressure 88 mm[Hg] DO Peri Tyson Work Phone: [facility] 02-12-2023 10:15-0400 Heart rate 77 /min DO Peri Tyson Work Phone: [facility] 02-12-2023 10:15-0400 Inhaled oxygen flow rate 4 L/min DO Peri Tyson Work Phone: [facility] 02-12-2023 10:15-0400 Respiratory rate 18 /min DO Peri Tyson Work Phone: [facility] 02-12-2023 10:15-0400 SaO2% (BldA) [Mass fraction] 97 % DO Peri Tyson Work Phone: [facility] 02-12-2023 10:15-0400 Systolic blood pressure 141 mm[Hg] DO Peri Tyson Work Phone: [facility] 02-12-2023 08:15-0400 Body height 152.4 cm DO Peri Tyson Work Phone: [facility] 02-12-2023 08:15-0400 Body weight 108.86 kg DO Peri Tyson Work Phone: [facility] 02-06-2023 09:00-0400 Body height 152.4 cm Periroyce Tyson Other [employer] Other 02-06-2023 09:00-0400 Body mass index (BMI) [Ratio] 48.43 kg/m2 Peri Tyson Other [employer] Other 02-06-2023 09:00-0400 Body weight 112.49 kg Peri Tyson Other [employer] Other 02-06-2023 09:00-0400 Diastolic blood pressure 70 mm[Hg] Peri Tyson Other [employer] Other 02-06-2023 09:00-0400 Respiratory rate 20 /min Peri Tyson Other [employer] Other 02-06-2023 09:00-0400 SaO2% (BldA) [Mass fraction] 99 % Epri Tyson Other [employer] Other 02-06-2023 09:00-0400 Systolic blood pressure 138 mm[Hg] Peri Tyson Other [employer] Other 01-29-2023 08:55-0400 Body temperature 97.5 [degF] DO Peri Tyson Work Phone: [facility] 01-29-2023 08:55-0400 Body weight 112.94 kg DO Peri Tyson Work Phone: [facility] 01-29-2023 08:55-0400 Diastolic blood pressure 82 mm[Hg] DO Peri Tyson Work Phone: [facility] 01-29-2023 08:55-0400 Heart rate 82 /min DO Peri Tyson Work Phone: [facility] 01-29-2023 08:55-0400 Respiratory rate 16 /min DO Peri Marbella Work Phone: [facility] 01-29-2023 08:55-0400 SaO2% (BldA) [Mass fraction] 98 % DO Peri Tyson Work Phone: [facility] 01-29-2023 08:55-0400 Systolic blood pressure 132 mm[Hg] DO Peri Tyson Work Phone: [facility] 01-12-2023 08:00-0400 Body height 152.4 cm Patsy Blades Other [employer] Other 01-12-2023 08:00-0400 Body mass index (BMI) [Ratio] 47.84 kg/m2 Patsy Blades Other [employer] Other 01-12-2023 08:00-0400 Body weight 111.13 kg Patsy Blades Other [employer] Other 01-12-2023 08:00-0400 Diastolic blood pressure 102 mm[Hg] Patsy Blades Other [employer] Other 01-12-2023 08:00-0400 Systolic blood pressure 162 mm[Hg] Patsy Blades Other [employer] Other 12-18-2022 13:38-0400 Diastolic blood pressure 71 mm[Hg] DO Peri Tyson Work Phone: [facility] 12-18-2022 13:38-0400 Heart rate 77 /min DO Peri Marbella Work Phone: [facility] 12-18-2022 13:38-0400 Inhaled oxygen flow rate 4 L/min DO Peri Marbella Work Phone: [facility] 12-18-2022 13:38-0400 Respiratory rate 16 /min DO Peri Marbella Work Phone: [facility] 12-18-2022 13:38-0400 SaO2% (BldA) [Mass fraction] 97 % DO Peri Marbella Work Phone: [facility] 12-18-2022 13:38-0400 Systolic blood pressure 139 mm[Hg] DO Peri Marbella Work Phone: [facility] 12-18-2022 11:03-0400 Body height 152.4 cm DO Peri Marbella Work Phone: [facility] 12-18-2022 11:03-0400 Body mass index (BMI) [Ratio] 44.9 kg/m2 DO Peri Marbella Work Phone: [facility] 12-18-2022 11:03-0400 Body weight 104.32 kg DO Peri Marbella Work Phone: [facility] 12-18-2022 09:34-0400 Body temperature 98.1 [degF] DO Peri Marbella Work Phone: [facility] 09-16-2022 11:30-0400 Body height 152.4 cm Periluis Tyson Other [employer] Other 09-16-2022 11:30-0400 Body mass index (BMI) [Ratio] 45.19 kg/m2 Periluis Tyson Other [employer] Other 09-16-2022 11:30-0400 Body weight 104.96 kg Peri Marbella Other [employer] Other 09-16-2022 11:30-0400 Diastolic blood pressure 92 mm[Hg] Peri Tyson Other [employer] Other 09-16-2022 11:30-0400 Respiratory rate 20 /min Peri Tyson Other [employer] Other 09-16-2022 11:30-0400 SaO2% (BldA) [Mass fraction] 99 % Peri Tyson Other [employer] Other 09-16-2022 11:30-0400 Systolic blood pressure 146 mm[Hg] Peri Tyson Other [employer] Other 07-30-2022 15:04-0400 Body temperature 97.8 [degF] DO Peri Tyson Work Phone: [facility] 07-30-2022 15:04-0400 Body weight 103.41 kg DO Peri Tyson Work Phone: [facility] 07-30-2022 15:04-0400 Diastolic blood pressure 77 mm[Hg] DO Peri Tyson Work Phone: [facility] 07-30-2022 15:04-0400 Heart rate 82 /min DO Peri Tyson Work Phone: [facility] 07-30-2022 15:04-0400 Respiratory rate 16 /min DO Peri Tyson Work Phone: [facility] 07-30-2022 15:04-0400 SaO2% (BldA) [Mass fraction] 97 % DO Peri Tyson Work Phone: [facility] 07-30-2022 15:04-0400 Systolic blood pressure 147 mm[Hg] DO Peri Tyson Work Phone: [facility] 07-07-2022 10:00-0400 Body height 152.4 cm Lulú Ruth Other [employer] Other 07-07-2022 10:00-0400 Body mass index (BMI) [Ratio] 44.33 kg/m2 Lulú Robledoaruna Other [employer] Other 07-07-2022 10:00-0400 Body temperature 97.8 [degF] Lulú Robledoaruna Other [employer] Other 07-07-2022 10:00-0400 Body weight 102.97 kg Lulú Robledoaruna Other [employer] Other 07-07-2022 10:00-0400 Diastolic blood pressure 62 mm[Hg] Lulú Robledoaruna Other [employer] Other 07-07-2022 10:00-0400 SaO2% (BldA) [Mass fraction] 98 % Lulú Robledoaruna Other [employer] Other 07-07-2022 10:00-0400 Systolic blood pressure 108 mm[Hg] Lulú Robledoaruna Other [employer] Other 05-12-2022 15:11-0500 Diastolic blood pressure 59 mm[Hg] DO Peri Tyson Work Phone: [facility] 05-12-2022 15:11-0500 Heart rate 65 /min DO Peri Tyson Work Phone: [facility] 05-12-2022 15:11-0500 Inhaled oxygen flow rate 4 L/min DO Peri Marbella Work Phone: [facility] 05-12-2022 15:11-0500 Respiratory rate 18 /min DO Peri Marbella Work Phone: [facility] 05-12-2022 15:11-0500 SaO2% (BldA) [Mass fraction] 98 % DO Peri Marbella Work Phone: [facility] 05-12-2022 15:11-0500 Systolic blood pressure 120 mm[Hg] DO Peri Marbella Work Phone: [facility] 05-12-2022 14:20-0500 Body temperature 98 [degF] DO Peri Marbella Work Phone: [facility] 05-07-2022 11:00-0500 Body height 152.4 cm Peri Tyson Other [employer] Other 05-07-2022 11:00-0500 Body mass index (BMI) [Ratio] 45.66 kg/m2 Peri Tyson Other [employer] Other 05-07-2022 11:00-0500 Body weight 106.05 kg Peri Tyson Other [employer] Other 05-07-2022 11:00-0500 Diastolic blood pressure 84 mm[Hg] Peri Tyson Other [employer] Other 05-07-2022 11:00-0500 Respiratory rate 20 /min Peri Tyson Other [employer] Other 05-07-2022 11:00-0500 SaO2% (BldA) [Mass fraction] 99 % Peri Tyson Other [employer] Other 05-07-2022 11:00-0500 Systolic blood pressure 136 mm[Hg] Peri Tyson Other [employer] Other 04-23-2022 10:55-0500 Body height 152.4 cm DO Giovanni Moreno Work Phone: [facility] 04-23-2022 10:55-0500 Body weight 106.3 kg DO Giovanni Moreno Work Phone: [facility] 04-23-2022 10:55-0500 Diastolic blood pressure 82 mm[Hg] DO Giovanni Josh Work Phone: [facility] 04-23-2022 10:55-0500 Heart rate 75 /min DO Giovanni Moreno Work Phone: [facility] 04-23-2022 10:55-0500 Inhaled oxygen flow rate 5 L/min DO Giovanni Moreno Work Phone: [facility] 04-23-2022 10:55-0500 Respiratory rate 20 /min DO Giovanni Moreno Work Phone: [facility] 04-23-2022 10:55-0500 SaO2% (BldA) [Mass fraction] 100 % DO Giovanni Moreno Work Phone: [facility] 04-23-2022 10:55-0500 Systolic blood pressure 145 mm[Hg] DO Giovanni Moreno Work Phone: [facility] 02-03-2022 11:00-0400 Body height 152.4 cm Peri Tyson Other [employer] Other 02-03-2022 11:00-0400 Body mass index (BMI) [Ratio] 46.59 kg/m2 Peri Tyson Other [employer] Other 02-03-2022 11:00-0400 Body weight 108.23 kg Peri Tyson Other [employer] Other 02-03-2022 11:00-0400 Diastolic blood pressure 80 mm[Hg] Peri Tyson Other [employer] Other 02-03-2022 11:00-0400 Respiratory rate 20 /min Peri Tyson Other [employer] Other 02-03-2022 11:00-0400 SaO2% (BldA) [Mass fraction] 99 % Peri Tyson Other [employer] Other 02-03-2022 11:00-0400 Systolic blood pressure 122 mm[Hg] Peri Tyson Other [employer] Other 12-23-2021 14:30-0400 Body height 152.4 cm Peri Tyson Other [employer] Other 12-23-2021 14:30-0400 Body mass index (BMI) [Ratio] 47.28 kg/m2 Peri Tyson Other [employer] Other 12-23-2021 14:30-0400 Body weight 109.82 kg Peri Tyson Other [employer] Other 12-23-2021 14:30-0400 Diastolic blood pressure 61 mm[Hg] Peri Tyson Other [employer] Other 12-23-2021 14:30-0400 Respiratory rate 20 /min Peri Tyson Other [employer] Other 12-23-2021 14:30-0400 SaO2% (BldA) [Mass fraction] 100 % Peri Tyson Other [employer] Other 12-23-2021 14:30-0400 Systolic blood pressure 109 mm[Hg] Peri Tyson Other [employer] Other 10-23-2021 13:14-0400 Body temperature 97 [degF] DO Giovanniamber Moreno Work Phone: [facility] 10-23-2021 13:14-0400 Body weight 110.67 kg DO Giovanni Josh Work Phone: [facility] 10-23-2021 13:14-0400 Diastolic blood pressure 76 mm[Hg] DO Giovanni Josh Work Phone: [facility] 10-23-2021 13:14-0400 Heart rate 70 /min DO Giovanni Josh Work Phone: [facility] 10-23-2021 13:14-0400 Respiratory rate 16 /min DO Giovanni Josh Work Phone: [facility] 10-23-2021 13:14-0400 SaO2% (BldA) [Mass fraction] 97 % DO Giovanni Josh Work Phone: [facility] 10-23-2021 13:14-0400 Systolic blood pressure 148 mm[Hg] DO Giovanni Josh Work Phone: [facility] 10-21-2021 14:45-0400 Body height 152.4 cm Giovanniamber Moreno Other [facility] [employer] Other 10-21-2021 14:45-0400 Body mass index (BMI) [Ratio] 48.08 kg/m2 Giovanni Moreno Other [employer] Other 10-21-2021 14:45-0400 Body weight 111.68 kg Giovanni Moreno Other [employer] Other 10-21-2021 14:45-0400 Diastolic blood pressure 84 mm[Hg] Giovanni Moreno Other [employer] Other 10-21-2021 14:45-0400 Respiratory rate 20 /min Giovanni Moreno Other [employer] Other 10-21-2021 14:45-0400 SaO2% (BldA) [Mass fraction] 99 % Giovanni Moreno Other [employer] Other 10-21-2021 14:45-0400 Systolic blood pressure 158 mm[Hg] Giovanni Moreno Other [employer] Other 09-26-2021 11:50-0400 Diastolic blood pressure 82 mm[Hg] DO Giovanni Moreno Work Phone: [facility] 09-26-2021 11:50-0400 Heart rate 75 /min DO Giovanni Josh Work Phone: [facility] 09-26-2021 11:50-0400 Inhaled oxygen flow rate 5 L/min DO Giovanni Josh Work Phone: [facility] 09-26-2021 11:50-0400 Respiratory rate 16 /min DO Giovanni Josh Work Phone: [facility] 09-26-2021 11:50-0400 SaO2% (BldA) [Mass fraction] 100 % DO Giovanni Josh Work Phone: [facility] 09-26-2021 11:50-0400 Systolic blood pressure 130 mm[Hg] DO Giovanni Moreno Work Phone: [facility] 09-26-2021 09:07-0400 Body height 152.4 cm DO Giovanni Moreno Work Phone: [facility] 09-26-2021 09:07-0400 Body mass index (BMI) [Ratio] 48.2 kg/m2 DO Giovanni Moreno Work Phone: [facility] 09-26-2021 09:07-0400 Body weight 112.03 kg DO Giovanni Moreno Work Phone: [facility] 08-22-2021 15:00-0400 Body height 152.4 cm Nicko Mckeon Other [employer] Other 08-22-2021 15:00-0400 Body mass index (BMI) [Ratio] 49.21 kg/m2 Nicko Mckeon Other [employer] Other 08-22-2021 15:00-0400 Body weight 114.31 kg Nicko Mckeon Other [employer] Other 08-22-2021 15:00-0400 Diastolic blood pressure 80 mm[Hg] Nicko Mckeon Other [employer] Other 08-22-2021 15:00-0400 SaO2% (BldA) [Mass fraction] 97 % Nicko Mckeon Other [employer] Other 08-22-2021 15:00-0400 Systolic blood pressure 160 mm[Hg] Nicko Mckeon Other [employer] Other 08-16-2021 10:08-0400 Body height 152.4 cm DO Giovanni Moreno Work Phone: [facility] 08-07-2021 10:00-0400 Body height 152.4 cm Giovanni Moreno Other [employer] Other 08-07-2021 10:00-0400 Body mass index (BMI) [Ratio] 50.03 kg/m2 Giovanni Moreno Other [employer] Other 08-07-2021 10:00-0400 Body weight 116.21 kg Giovanni Moreno Other [employer] Other 08-07-2021 10:00-0400 Diastolic blood pressure 86 mm[Hg] Giovanni Moreno Other [employer] Other 08-07-2021 10:00-0400 Respiratory rate 20 /min Giovanni Moreno Other [employer] Other 08-07-2021 10:00-0400 SaO2% (BldA) [Mass fraction] 99 % Giovanni Moreno Other [employer] Other 08-07-2021 10:00-0400 Systolic blood pressure 126 mm[Hg] Giovanni Moreno Other [employer] Other 07-22-2021 10:30-0400 Body height 152.4 cm Giovanni Moreno Other [employer] Other 07-22-2021 10:30-0400 Body mass index (BMI) [Ratio] 49.05 kg/m2 Giovanni Moreno Other [employer] Other 07-22-2021 10:30-0400 Body weight 113.94 kg Giovanni Moreno Other [employer] Other 07-22-2021 10:30-0400 Diastolic blood pressure 81 mm[Hg] Giovanni Moreno Other [employer] Other 07-22-2021 10:30-0400 Respiratory rate 20 /min Giovanni Moreno Other [employer] Other 07-22-2021 10:30-0400 SaO2% (BldA) [Mass fraction] 99 % Giovanni Moreno Other [employer] Other 07-22-2021 10:30-0400 Systolic blood pressure 126 mm[Hg] Giovanni Moreno Other [employer] Other 06-20-2021 10:45-0500 Body height 152.4 cm Giovanni Moreno Other [employer] Other 06-20-2021 10:45-0500 Body mass index (BMI) [Ratio] 48.43 kg/m2 Giovanni Moreno Other [employer] Other 06-20-2021 10:45-0500 Body weight 112.49 kg Giovanni Moreno Other [employer] Other 06-20-2021 10:45-0500 Diastolic blood pressure 92 mm[Hg] Giovanni Moreno Other [employer] Other 06-20-2021 10:45-0500 Respiratory rate 20 /min Giovanni Moreno Other [employer] Other 06-20-2021 10:45-0500 SaO2% (BldA) [Mass fraction] 99 % Giovanni Moreno Other [employer] Other 06-20-2021 10:45-0500 Systolic blood pressure 136 mm[Hg] Giovanni Moreno Other [employer] Other 05-23-2021 10:30-0500 Body height 152.4 cm Giovanni Moreno Other [employer] Other 05-23-2021 10:30-0500 Body mass index (BMI) [Ratio] 48.23 kg/m2 Giovanni Moreno Other [employer] Other 05-23-2021 10:30-0500 Body weight 112.04 kg Giovanni Moreno Other [employer] Other 05-23-2021 10:30-0500 Diastolic blood pressure 88 mm[Hg] Giovanni Moreno Other [employer] Other 05-23-2021 10:30-0500 Respiratory rate 20 /min Giovanni Moreno Other [employer] Other 05-23-2021 10:30-0500 SaO2% (BldA) [Mass fraction] 99 % Giovanni Moreno Other [employer] Other 05-23-2021 10:30-0500 Systolic blood pressure 134 mm[Hg] Giovanni Moreno Other [employer] Other 05-01-2021 14:15-0500 Body height 152.4 cm Giovanni Moreno Other [employer] Other 05-01-2021 14:15-0500 Body mass index (BMI) [Ratio] 48.23 kg/m2 Giovanni Moreno Other [employer] Other 05-01-2021 14:15-0500 Body weight 112.04 kg Giovanni Moreno Other [employer] Other 05-01-2021 14:15-0500 Diastolic blood pressure 84 mm[Hg] Giovanni Moreno Other [employer] Other 05-01-2021 14:15-0500 Respiratory rate 20 /min Giovanni Moreno Other [employer] Other 05-01-2021 14:15-0500 SaO2% (BldA) [Mass fraction] 99 % Giovanni Moreno Other [employer] Other 05-01-2021 14:15-0500 Systolic blood pressure 116 mm[Hg] Giovanni Moreno Other [employer] Other 04-02-2021 11:00-0500 Body height 152.4 cm Giovanni Moreno Other [employer] Other 04-02-2021 11:00-0500 Body mass index (BMI) [Ratio] 47.84 kg/m2 Giovanni Moreno Other [employer] Other 04-02-2021 11:00-0500 Body weight 111.13 kg Giovanni Moreno Other [employer] Other 04-02-2021 11:00-0500 Diastolic blood pressure 86 mm[Hg] Giovanni Moreno Other [employer] Other 04-02-2021 11:00-0500 Respiratory rate 20 /min Giovanni Moreno Other [employer] Other 04-02-2021 11:00-0500 SaO2% (BldA) [Mass fraction] 99 % Giovanni Moreno Other [employer] Other 04-02-2021 11:00-0500 Systolic blood pressure 136 mm[Hg] Giovanni Moreno Other [employer] Other 03-04-2021 10:30-0500 Body height 152.4 cm Domenico Whitmore Other [employer] Other 03-04-2021 10:30-0500 Body mass index (BMI) [Ratio] 46.87 kg/m2 Domenico Whitmore Other [employer] Other 03-04-2021 10:30-0500 Body temperature 96.3 [degF] Domenico Whitmore Other [employer] Other 03-04-2021 10:30-0500 Body weight 108.86 kg Domenico Whitmore Other [employer] Other 03-04-2021 10:30-0500 Diastolic blood pressure 60 mm[Hg] Domenico Whitmore Other [employer] Other 03-04-2021 10:30-0500 SaO2% (BldA) [Mass fraction] 99 % Domenico Whitmore Other [employer] Other 03-04-2021 10:30-0500 Systolic blood pressure 90 mm[Hg] Domenico Whitmore Other [employer] Other Encounters Encounter Date Encounter Type Care Provider Facility Start: 05-27-2023 End: 05-27-2023 ambulatory DO Brenden Groves Work Phone: [facility] Work Phone: Start: 05-27-2023 End: 05-27-2023 Patient encounter procedure DO Brenden Groves Work Phone: [facility] Vascular Surgery Work Phone: Start: 05-22-2023 End: 05-22-2023 ambulatory Peri Tyson Other [employer] [facility] [employer] Other Start: 05-22-2023 Telephone encounter Peri Tyson [facility] [place] Start: 05-21-2023 Refherminia SOLORIOM Work Phone: [facility] Comment on above: 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, with long-term current use of insulin ([facility]) Start: 05-12-2023 End: 05-12-2023 ambulatory Peri A Tyson Facility:[facility] Start: 05-12-2023 End: 05-12-2023 ambulatory DO Peri [facility] Work Phone: [facility] Work Phone: Start: 05-12-2023 End: 05-12-2023 Discharged Recurring DO Peri Tyson Work Phone: [facility] [place] Work Phone: Start: 05-08-2023 End: 05-08-2023 ambulatory Peri A Tyson Facility:[facility] Start: 05-08-2023 End: 05-08-2023 ambulatory DO Peri [facility] Work Phone: [facility] Work Phone: Start: 05-08-2023 End: 05-08-2023 Patient encounter procedure DO Peri Marbella Work Phone: [facility] [place] Work Phone: Start: 04-28-2023 Registered Recurring DO Peri Marbella Work Phone: [facility] [place] Work Phone: Start: 04-20-2023 Telephone encounter Periluis Tyson [facility] [place] Start: 04-20-2023 End: 04-20-2023 ambulatory MACKJill PRIDE Not Available Start: 04-15-2023 End: 04-15-2023 ambulatory Peri Marbella Other [employer] Other Start: 04-15-2023 Telephone encounter Periluis Tyson [facility] [place] Start: 03-24-2023 End: 03-24-2023 ambulatory Peri Marbella Other [employer] Other Start: 03-24-2023 Telephone encounter Periluis Tyson [facility] [place] Start: 03-19-2023 End: 03-19-2023 ambulatory Peri Marbella Other [employer] Other Start: 03-19-2023 Telephone encounter Peri Marbella [facility] [place] Start: 03-09-2023 ambulatory Peri Luis Tyson Facility :[facility] Start: 03-09-2023 Registered Recurring DO Rayshawn andrews Germain Work Phone: [facility] Start: 03-04-2023 ambulatory Peri A Tyson Facility :[facility] Start: 03-04-2023 End: 03-04-2023 ambulatory DO Peri A Tyson Work Phone: [facility] Work Phone: Start: 03-04-2023 End: 03-04-2023 Registered Recurring DO Peri Tyson Work Phone: [facility] Work Phone: Start: 02-23-2023 End: 02-23-2023 ambulatory Peri Marbella Other [employer] Other Start: 02-23-2023 Telephone encounter Peri Tyson [facility] Start: 02-19-2023 End: 02-19-2023 ambulatory Peri Tyson Facility:[facility] Start: 02-19-2023 End: 02-19-2023 Patient encounter procedure DO Periluis Tyson Work Phone: [facility] [place] Work Phone: Start: 02-12-2023 Telephone encounter Peri Tyson [facility] Start: 02-12-2023 End: 02-12-2023 ambulatory Peri Tyson [facility] [employer] Other Start: 02-12-2023 End: 02-12-2023 Admission to same day surgery center DO Peri Tyson Work Phone: [facility]CT Scan [place] Work Phone: Start: 02-09-2023 Registered Recurring DO Peri Tyson Work Phone: [facility] Start: 02-06-2023 End: 02-06-2023 ambulatory Peri Tyson Other [employer] Other Start: 02-06-2023 Encounter for genera l adult medical examination without abnormal findings Peri Tyson [facility] Start: 02-06-2023 Periodic preventive med est patient 40-64yrs Peri Tyson [facility] Start: 02-04-2023 Telephone encounter Peri Tyson [facility] Start: 02-04-2023 End: 02-04-2023 ambulatory Peri Luis Tyson Facility:[facility] Start: 02-04-2023 End: 02-04-2023 ambulatory DO Peri Luis Tyson Work Phone: [facility] Work Phone: Start: 02-04-2023 End: 02-04-2023 Patient encounter procedure DO Periluis Tyson Work Phone: [facility]MRI [address] Work Phone: Start: 02-03-2023 End: 02-03-2023 ambulatory Peri Tyson Other [employer] Other Start: 02-03-2023 Telephone encounter Peri Tyson [facility] [place] Start: 01-29-2023 End: 01-29-2023 ambulatory DO Peri Luis Tyson Work Phone: [facility] Work Phone: Start: 01-29-2023 End: 01-29-2023 Registered Recurring DO Peri Tyson Work Phone: [facility] Work Phone: Start: 01-21-2023 End: 01-21-2023 ambulatory Peri Marbella Other [employer] Other Start: 01-21-2023 Telephone encounter Peri Tyson [facility] [place] Start: 01-19-2023 End: 01-19-2023 ambulatory Peri Tyson Other [employer] Other Start: 01-19-2023 Telephone encounter Peri Tyson [facility] [place] Start: 01-15-2023 End: 01-15-2023 ambulatory Patsy Harvey Other [employer] Other Start: 01-15-2023 Telephone encounter Patsy Blades [employer] Start: 01-12-2023 End: 01-12-2023 ambulatory Patsy Blades Other [employer] Other Start: 01-12-2023 Office outpatient ne w 45 minutes Patsy Blades [facility] Start: 01-12-2023 Telephone encounter Patsy Blades [facility] Start: 12-24-2022 End: 12-24-2022 ambulatory Peri Marbella Other [employer] Other Start: 12-24-2022 Telephone encounter Peri Tyson [facility] Start: 12-18-2022 End: 12-18-2022 ambulatory Peri Luis Tyson Facility:[facility] Start: 12-18-2022 End: 12-18-2022 Admission to same day surgery center DO Peri Tyson Work Phone: [facility] [place] Start: 12-18-2022 End: 12-18-2022 ambulatory DO Peri Luis Tyson Work Phone: [facility] Work Phone: Start: 12-16-2022 End: 12-16-2022 ambulatory Periluis Tyson Other [employer] Other Start: 12-16-2022 Telephone encounter Peri Tyson [facility] Start: 12-10-2022 End: 12-10-2022 ambulatory Periluis Tyson Other [employer] Other Start: 12-10-2022 Telephone encounter Peri Tyson [facility] Start: 12-05-2022 End: 12-05-2022 ambulatory Peri Luis Tyson Facility:[facility] Start: 12-05-2022 End: 12-05-2022 Departed Referred DO Peri Marbella Work Phone: [facility] Work Phone: Start: 12-05-2022 End: 12-05-2022 Patient encounter procedure DO Peri Marbella Work Phone: [facility] [facility] Work Phone: Start: 12-04-2022 End: 12-04-2022 ambulatory Jez Josue Facility:[facility] Start: 12-04-2022 End: 12-04-2022 ambulatory DO Peri A Tyson Work Phone: [facility] Work Phone: Start: 12-04-2022 End: 12-04-2022 Patient encounter procedure DO Peri Marbella Work Phone: [facility] [place] Work Phone: Start: 11-20-2022 End: 11-20-2022 ambulatory DO Peri A Marbella Work Phone: [facility] Work Phone: Start: 11-20-2022 End: 11-20-2022 Discharged Recurring DO Peri Marbella Work Phone: [facility]-Physical Therapy [place] Start: 11-17-2022 End: 11-17-2022 ambulatory Peri Tyson Other [employer] Other Start: 11-17-2022 Telephone encounter Periluis Tyson [facility] [place] Start: 10-27-2022 End: 10-27-2022 ambulatory Peri Tyson Other [employer] Other Start: 10-27-2022 Telephone encounter Periluis Tyson [facility] [place] Start: 10-13-2022 End: 10-13-2022 ambulatory Peri Tyson Other [employer] Other Start: 10-13-2022 Telephone encounter Peri Tyson [facility] Start: 10-10-2022 End: 10-10-2022 ambulatory Periluis Tyson Other [employer] Other Start: 10-10-2022 Telephone encounter Periroyce Tyson [facility] Start: 2022 End: 2022 ambulatory Periluis Tyson Other [employer] Other Start: 2022 Telephone encounter Periroyce Tyson [facility] Start: 09-30-2022 End: 09-30-2022 ambulatory Periluis Tyson Other [employer] Other Start: 09-30-2022 Telephone encounter Periroyce Tyson [facility] Start: 09-24-2022 End: 09-24-2022 ambulatory Periluis Tyson Other [employer] Other Start: 09-24-2022 Telephone encounter Peri Tyson [facility] Start: 09-16-2022 Office outpatient vi sit 25 minutes Peri Tyson [facility] Start: 09-16-2022 End: 09-16-2022 ambulatory DO Periluis Tyson Work Phone: [employer] Other Start: 09-16-2022 End: 09-16-2022 Patient encounter procedure DO Peri Tyson Work Phone: [facility] Start: 09-09-2022 End: 09-09-2022 ambulatory Peri Marbella Other [employer] Other Start: 09-09-2022 Telephone encounter Peri Tyson [facility] [place] Start: 09-05-2022 Registered Recurring DO Peri Tyson Work Phone: [facility] [place] Start: 08-12-2022 End: 08-12-2022 ambulatory Periluis Tyson Other [employer] Other Start: 08-12-2022 Telephone encounter Peri Tyson [facility] [place] Start: 08-07-2022 End: 08-07-2022 ambulatory Peri Tyson Facility:[facility] Start: 08-07-2022 End: 08-07-2022 ambulatory DO Peri Tyson Work Phone: [facility] Work Phone: Start: 08-07-2022 End: 08-07-2022 Patient encounter procedure DO Peri Tyson Work Phone: [facility] [place] Work Phone: Start: 08-01-2022 End: 08-01-2022 ambulatory Peri Tyson Other [employer] Other Start: 08-01-2022 Telephone encounter Peri Tyson [facility] [place] Start: 07-30-2022 Registered Recurring DO Peri Tyson Work Phone: [facility] Work Phone: Start: 07-18-2022 End: 07-18-2022 ambulatory Periluis Tyson Other [employer] Other Start: 07-18-2022 Telephone encounter Peri Tyson [facility] [place] Start: 07-17-2022 End: 07-17-2022 ambulatory Periluis Tyson Other [employer] Other Start: 07-17-2022 Telephone encounter Peri Tyson [facility] [place] Start: 07-14-2022 End: 07-14-2022 ambulatory Peri Tyson Other [employer] Other Start: 07-14-2022 Telephone encounter Peri Tyson [facility] Start: 07-07-2022 Follow-up encounter [facility] Start: 07-07-2022 End: 07-07-2022 ambulatory Peri Luis Tyson [facility] [employer] Other Start: 07-07-2022 End: 07-07-2022 Patient encounter procedure DO Peri Tyson Work Phone: [facility] Start: 07-03-2022 End: 07-04-[address] SANAM LINARES . Facility: Start: 06-30-2022 End: 06-30-2022 ambulatory Peri Tyson Other [employer] Other Start: 06-30-2022 Telephone encounter Peri Tyson [facility] [place] Start: 05-23-2022 Telephone encounter Peri Tyson [facility] Start: 05-23-2022 End: 05-23-2022 ambulatory Peri Tyson Facility:[facility] Start: 05-23-2022 End: 05-23-2022 ambulatory DO Peri Luis Tyson Work Phone: [facility] Work Phone: Start: 05-23-2022 End: 05-23-2022 Patient encounter procedure DO Periluis Tyson Work Phone: [facility] Work Phone: Start: 05-15-2022 End: 05-15-2022 ambulatory Peri Tyson Other [employer] Other Start: 05-15-2022 Telephone encounter Peri Tyson [facility] Start: 05-12-2022 End: 05-12-2022 ambulatory Peri Tyson Other [employer] Other Start: 05-12-2022 Telephone encounter Periluis Tyson [facility] Start: 05-12-2022 Registered Recurring DO Periluis Tyson [facility] Work Phone: Start: 05-09-2022 End: 05-09-2022 Patient encounter procedure DO Periluis Tyson Work Phone: [facility] [place] Work Phone: Start: 05-07-2022 End: 05-07-2022 ambulatory Peri Tyson Other [employer] Other Start: 05-07-2022 Office outpatient vi sit 25 minutes Peri Tyson [facility] Start: 05-06-2022 End: 05-07-[address] SANAM LINARES . Facility: Start: 04-23-2022 End: 04-23-2022 ambulatory DO Giovanni Moreno Work Phone: [facility] Work Phone: Start: 04-23-2022 End: 04-23-2022 Registered Recurring DO Giovanni Moreno [facility] Work Phone: Start: 04-22-2022 End: 04-22-2022 ambulatory Peri Tyson Other [employer] Other Start: 04-22-2022 Telephone encounter Peri Tyson [facility] Start: 04-21-2022 End: 04-21-2022 ambulatory Peri Tyson Other [employer] Other Start: 04-21-2022 Telephone encounter Periroyce Tyson [facility] [place] Start: 04-17-2022 End: 04-17-2022 ambulatory Periluis Tyson Other [employer] Other Start: 04-17-2022 Telephone encounter Periroyce Tyson [facility] [place] Start: 04-02-2022 End: 04-02-2022 ambulatory Periluis Tyson Other [employer] Other Start: 04-02-2022 Telephone encounter Periroyce Tyson [facility] [place] Start: 03-31-2022 End: 03-31-2022 ambulatory Periluis Tyson Other [employer] Other Start: 03-31-2022 Telephone encounter Periroyce Tyson [facility] [place] Start: 03-17-2022 End: 03-17-2022 ambulatory Periluis Tyson Other [employer] Other Start: 03-17-2022 Telephone encounter Peri Tyson [facility] [place] Start: 03-10-2022 End: 03-10-2022 ambulatory Periluis Tyson Other [employer] Other Start: 03-10-2022 Telephone encounter Peri Tyson [facility] [place] Start: 02-19-2022 End: 02-19-2022 ambulatory DO Giovanni Moreno Work Phone: [facility] Work Phone: Start: 02-19-2022 End: 02-19-2022 Patient encounter procedure DO Giovanni Moreno Work Phone: [facility] Start: 02-18-2022 End: 02-18-2022 ambulatory Peri Tyson Other [employer] Other Start: 02-18-2022 Telephone encounter Peri Tyson [facility] [place] Start: 02-13-2022 End: 02-13-2022 ambulatory Peri Tyson Other [employer] Other Start: 02-13-2022 Telephone encounter Peri Tyson [facility] [place] Start: 02-11-2022 End: 02-11-2022 ambulatory Peri Tyson Other [employer] Other Start: 02-11-2022 Telephone encounter Peri Tyson [facility] [place] Start: 02-10-2022 End: 02-10-2022 ambulatory Peri Tyson Other [employer] Other Start: 02-10-2022 Telephone encounter Peri Tyson [facility] [place] Start: 02-03-2022 Office outpatient vi sit 25 minutes Periroyce Tyson [facility] [place] Start: 02-03-2022 End: 02-03-2022 ambulatory DO Giovanni Moreno Work Phone: [employer] Other Start: 02-03-2022 End: 02-03-2022 Departed Referred DO Giovanni Moreno Work Phone: [facility] [place] Start: 01-22-2022 End: 01-22-2022 ambulatory Peri Tyson Other [employer] Other Start: 01-22-2022 Telephone encounter Peri Tyson [facility] [place] Start: 12-30-2021 End: 12-30-2021 ambulatory Peri Tyson Other [employer] Other Start: 12-30-2021 Telephone encounter Peri Marbella [facility] [place] Start: 12-23-2021 End: 12-23-2021 ambulatory Periluis Tyson Other [employer] Other Start: 12-23-2021 Office outpatient vi sit 25 minutes Peri Tyson [facility] [place] Start: 12-23-2021 End: 12-23-2021 Departed Referred DO Giovanni Moreno Work Phone: [facility] [place] Start: 11-29-2021 End: 11-29-2021 ambulatory Josafat Nunes Other [employer] Other Start: 11-29-2021 Telephone encounter Josafat Nunes [facility] [place] Start: 11-05-2021 End: 11-05-2021 ambulatory Giovanni Moreno Other [employer] Other Start: 11-05-2021 Telephone encounter Giovanni Gay[facility] [place] Start: 11-04-2021 End: 11-04-2021 ambulatory Adore Schwerer Other [employer] Other Start: 11-04-2021 Telephone encounter Adore Schwerer [facility] [place] Start: 10-31-2021 End: 10-31-2021 ambulatory Adore Schwerer Other [employer] Other Start: 10-31-2021 Telephone encounter Adore Schwerer [facility] [place] Start: 10-23-2021 Registered Recurring DO Giovanni Moreno Work Phone: [facility] Start: 10-21-2021 End: 10-21-2021 Patient encounter procedure DO Giovanni Moreno Work Phone: [facility] Start: 10-21-2021 End: 10-21-2021 ambulatory Giovanni Moreno Other [employer] Other Start: 10-21-2021 Office outpatient vi sit 25 minutes Giovanni Moreno [facility] [place] Start: 10-03-2021 End: 10-03-2021 ambulatory Giovanni Moreno Other [employer] Other Start: 10-03-2021 Telephone encounter Giovanni Gaytan [facility] [place] Start: 09-26-2021 End: 09-26-2021 Admission to same day surgery center DO Giovanni Moreno Work Phone: [facility] [place] Start: 09-19-2021 End: 09-19-2021 ambulatory Giovanni Moreno Other [employer] Other Start: 09-19-2021 Telephone encounter Giovanni Gaytan [facility] [place] Start: 08-23-2021 End: 08-23-2021 ambulatory Nicko Mckeon Other [employer] Other Start: 08-23-2021 Telephone encounter Nicko Mckeon [facility] Start: 08-22-2021 End: 08-22-2021 ambulatory Nicko Mckeon Other [employer] Other Start: 08-22-2021 Office consultation new/estab patient 60 min Nickocollin Mckeon [facility] Start: 08-08-2021 End: 08-08-2021 ambulatory Giovanni Moreno Other [employer] Other Start: 08-08-2021 Telephone encounter Giovanni Gaytan [facility] [place] Start: 08-07-2021 End: 08-07-2021 ambulatory Giovanni Moreno Other [employer] Other Start: 08-07-2021 Office outpatient vi sit 15 minutes Giovanni Moreno [facility] [place] Start: 08-07-2021 Telephone encounter Giovanni Moreno [facility] [place] Start: 08-01-2021 End: 08-01-2021 ambulatory Giovanni Moreno Other [employer] Other Start: 08-01-2021 Telephone encounter Giovanni Moreno [facility] [place] Start: 07-29-2021 End: 07-29-2021 ambulatory Giovanni Josh Other [employer] Other Start: 07-29-2021 Telephone encounter Giovanni Moreno [facility] [place] Start: 07-22-2021 End: 07-22-2021 ambulatory Giovanni Josh Other [employer] Other Start: 07-22-2021 Office outpatient vi sit 25 minutes Giovanni Moreno [facility] [place] Start: 07-03-2021 End: 07-03-2021 ambulatory Giovanni Josh Other [employer] Other Start: 07-03-2021 Telephone encounter Giovanni Moreno [facility] [place] Start: 06-25-2021 End: 06-25-2021 ambulatory Giovanni Josh Other [employer] Other Start: 06-25-2021 Telephone encounter Giovanni Moreno [facility] [place] Start: 06-20-2021 End: 06-20-2021 ambulatory Giovanni Josh Other [employer] Other Start: 06-20-2021 Office outpatient vi sit 25 minutes Giovanni Moreno [facility] [place] Start: 06-06-2021 End: 06-06-2021 ambulatory Giovanni Josh Other [employer] Other Start: 06-06-2021 Telephone encounter Giovanni Moreno [facility] [place] Start: 06-05-2021 End: 06-05-2021 ambulatory Giovanni Moreno Other [employer] Other Start: 06-05-2021 Telephone encounter Giovanni Moreno [facility] [place] Start: 05-23-2021 End: 05-23-2021 ambulatory Giovanni Moreno Other [employer] Other Start: 05-23-2021 Patient encounter procedure Giovanni Moreno [facility] [place] Start: 05-23-2021 Telephone encounter Giovanni Moreno [facility] [place] Start: 05-15-2021 End: 05-15-2021 ambulatory Giovanni Moreno Other [employer] Other Start: 05-15-2021 Telephone encounter Giovanni Moreno [facility] [place] Start: 05-02-2021 End: 05-02-2021 ambulatory Giovanni Moreno Other [employer] Other Start: 05-02-2021 Telephone encounter Giovanni Moreno [facility] [place] Start: 05-01-2021 End: 05-01-2021 ambulatory Giovanni Moreno Other [employer] Other Start: 05-01-2021 Office outpatient vi sit 15 minutes Giovanni Moreno [facility] [place] Start: 04-30-2021 End: 04-30-2021 ambulatory Giovanni Moreno Other [employer] Other Start: 04-30-2021 Telephone encounter Giovanni Moreno [facility] [place] Start: 04-29-2021 End: 04-29-2021 ambulatory Giovanni Moreno Other [employer] Other Start: 04-29-2021 Telephone encounter Giovanni Gaytan [facility] [place] Start: 04-02-2021 End: 04-02-2021 ambulatory Giovanni Moreno Other [employer] Other Start: 04-02-2021 Office outpatient vi sit 25 minutes Giovanniamber Moreno [facility] [place] Start: 03-25-2021 End: 03-25-2021 ambulatory Giovanni Moreno Other [employer] Other Start: 03-25-2021 Telephone encounter Giovanni Gaytan [facility] [place] Start: 03-21-2021 End: 03-21-2021 ambulatory Giovanni Moreno Other [employer] Other Start: 03-21-2021 Telephone encounter Giovanni Gaytan [facility] [place] Start: 03-04-2021 End: 03-04-2021 ambulatory Domenico Whitmore Other [employer] Other Start: 03-04-2021 Office outpatient ne w 45 minutes Domenico Whitmore [facility] V[facility] Surgery Start: 02-27-2021 End: 02-27-2021 ambulatory Giovanni Moreno Other [employer] Other Start: 02-27-2021 Telephone encounter Giovanni Gaytan [facility] [place] Start: 02-20-2021 End: 02-20-2021 ambulatory Giovanni Moreno Other [employer] Other Start: 02-20-2021 Telephone encounter Giovanni Gaytan [facility] [place] Procedures Date Procedure Procedure Detail Performing Clinician Start: 05-08-2023 Duplex scan of lower limb veins DO Cecilia villatoro Tyson Work Phone: Start: 02-19-2023 Pulse volume recorder pneumoplethysmography DO Peri Tyson [employer] Phone: Start: 02-12-2023 Bone marrow sampling DO Peri Tyson [employer] Phone: Start: 02-06-2023 Radiologic examination, osseous survey, complete DO Peri Tyson Work Phone: Start: 02-04-2023 MRI of left hip DO Peri Tyson Work Phone: Start: 12-18-2022 Phacoemulsification of cataract with intraocular lens implantation DO Peri Tyson Work Phone: Start: 12-04-2022 MR lumbar spine wo con DO Peri Tyson Work Phone: Start: 09-16-2022 Plain X-ray of left hip DO Peri Tyson [employer] Phone: Start: 07-07-2022 Duplex scan of lower limb veins DO Cecilia Tyson [employer] Phone: Start: 05-23-2022 Screening mammography of bilateral breasts DO Peri Tyson [employer] Phone: Start: 04-25-2022 Pelvis X-ray DO Peri Tyson [employer] Phone: Start: 04-25-2022 X-ray of lumbar spine, two or three views DO Peri Tyson [employer] Phone: Start: 02-03-2022 Urine culture DO Giovanni Moreno Work Phone: Start: 09-26-2021 Bone marrow sampling DO Giovanni Moreno Work Phone: Start: 08-22-2021 Radiologic examination, osseous survey, complete DO Giovanni Moreno Work Phone: Urine culture DO Giovanni jacobsen Work Phone: Urine culture DO Giovanni jacobsen Work Phone: Plan of Treatment Date Care Activity Detail Author Start: 07-16-2023 End: 07-16-2023 Patient encounter procedure 07/16/2023 1:45 PM EDT Office Visit [facility] [address] [place] [id number] Svetlana Garcia DO [address] [place] [address] [facility] Start: 06-29-2023 End: 06-29-2023 Patient encounter procedure 06/29/2023 8:40 AM EDT Office Visit [facility] [address] [place] [id number] Mcak Pride, FRANDY [address] [address] [facility] Start: 05-08-2023 Duplex scan of lower limb veins US venous duplex LE BI [facility] Start: 05-08-2023 US Lower extremity v ein - bilateral [facility] Start: 02-12-2023 End: 02-12-2023 [facility] Start: 12-18-2022 End: 12-18-2022 [facility] Start: 08-07-2022 Insulin C-peptide measurement [facility] Start: 05-12-2022 [facility] Start: 05-09-2022 [facility] Start: 05-05-2022 [facility] Start: 04-30-2022 [facility] Start: 09-26-2021 End: 09-26-2021 [facility] Work Phone: Start: 1998 Screening for malign ant neoplasm of breast Mammogram [facility] Start: 1988 Screening for malign ant neoplasm of cervix [facility] Start: 10-09-1979 Screening for malign ant neoplasm of cervix Pap Smear [facility] Start: 1958 Screening for malign ant neoplasm of colon [facility] Bacteria identified in Urine by Culture [facility] Bone marrow sampling [facility] Comprehensive metabo lic 2000 panel - Serum or Plasma [facility] Work Phone: Comprehensive metabo lic 1999 panel - Serum or Plasma [facility] Comprehensive metabo lic 1999 panel - Serum or Plasma [facility] Drugs identified in Urine Fi relands [facility] Work Phone: Ferritin [Mass/volum e] in Serum or Plasma [facility] Work Phone: Ferritin [Mass/volum e] in Serum or Plasma [facility] Patient Education [facility] Work Phone: Patient referral [facility] Work Phone: Radiologic examinati on osseous survey compl [facility] XR Lumbar spine 2 or 3 Views [facility] XR Pelvis 1 or 2 Views [facility] Immunizations Immunization Date Immunization Notes Care Provider [facility] 01-28-2023 Arexvy-For documentation purposes only Peri Tyson Other [facility] 12-12-2022 influenza, injectabl e, quadrivalent, preservative free Peri Tyson Other [facility] 07-01-2022 influenza, injectabl e, quadrivalent, preservative free Mack Pride DPM Work Phone: [facility] 06-13-2022 Hepatitis B vaccine (recombinant), CpG adjuvanted Mack Pride DPM Work Phone: [facility] 02-18-2022 Pneumococcal Conjuga te PCV 20 Mack Pride DPM Work Phone: [facility] 12-29-2021 COVID-19 Pfizer (bivalent) Peri Tyson Other [facility] 12-25-2021 Influenza, injectabl e, Madin [place] Canine Kidney, preservative free, quadrivalent Mack Pride DPM Work Phone: [facility] 12-25-2021 tetanus toxoid, redu alex diphtheria toxoid, and acellular pertussis vaccine, adsorbed Peri Tyson Other [employer] Other 12-25-2021 influenza, seasonal, injectable Peri Tyson Other [facility] 10-28-2021 COVID-19 Vaccine Moderna - Documentation Purposes Only Peri Tyson Other [facility] 10-28-2021 pneumococcal polysaccharide vaccine, 23 valent Peri Tyson Other [employer] Other 06-11-2021 COVID-19 mRNA-1273 (Moderna) DO Giovanni Moreno Work Phone: [facility] 03-12-2021 COVID-19 Vaccine Moderna - Documentation Purposes Only Giovanni Moreno Other [facility] 03-11-2021 Moderna SARS-CoV-2 Booster Vaccination Mack Pride DPM Work Phone: [facility] 01-24-2021 COVID-19 mRNA-1273 (Moderna) DO Giovanni Moreno Work Phone: [facility] 01-11-2021 Flu Vaccine - Adult DO Cecilia Tyson Work Phone: [facility] 01-11-2021 influenza, seasonal, injectable DO Giovanni Moreno Work Phone: [facility] 01-03-2021 influenza, seasonal, injectable Giovanni Moreno Other [facility] 01-03-2021 Influenza, injectabl e, Madin [place]ke[place] Canine Kidney, preservative free, quadrivalent Mack Pride DPM Work Phone: [facility] 12-22-2020 zoster vaccine recombinant Giovanni Moreno Other [employer] Other 09-13-2020 zoster vaccine recombinant Giovanni Moreno Other [employer] Other 07-31-2020 pneumococcal polysaccharide vaccine, 23 valent Giovanni Moreno Other [employer] Other 07-25-2020 COVID-19 Vaccine Pfi zer - Documentation Purposes Only Giovanni Moreno Other [facility] 07-12-2020 COVID-19 mRNA-1273 (Moderna) DO Giovanni Moreno Work Phone: [facility] 07-05-2020 COVID-19 Vaccine Pfi zer - Documentation Purposes Only Giovanni Moreno Other [facility] 01-16-2020 influenza, injectabl e, quadrivalent, preservative free Mack Pride DPM Work Phone: [facility] 02-16-2019 Influenza, injectabl e, Madin Nkechi Canine Kidney, preservative free, quadrivalent Mack Pride DPM Work Phone: [facility] 05-11-2018 pneumococcal conjuga te vaccine, 13 valent Giovanni Moreno Other [employer] Other 01-28-2018 Influenza, injectabl e, Madin Nkechi Canine Kidney, quadrivalent with preservative Mack Pride DPM Work Phone: [facility] 02-11-2017 influenza, injectabl e, quadrivalent, contains preservative Mack Pride DPM Work Phone: [facility] 07-09-2016 pneumococcal polysaccharide vaccine, 23 valent Mack Pride DPM Work Phone: [facility] 02-23-2013 influenza virus vaccine, whole virus Mack Pride DPM Work Phone: [facility] 02-08-2013 pneumococcal polysaccharide vaccine, 23 valent Mack Brown DPM Work Phone: [facility] Payers Date Payer Category Payer Self-pay [id number] 2021 Medicaid [employer] [place] [id number] 2021-Present [address] [place] [address] [id number] 1959 Unknown [id number] 1958 Unknown [id number] [id number] 1958 Unknown [id number] [id number] 1958 Unknown [id number] 2.16.840.1.480642.3.579.2.1259 Medicaid [facility] [id number] Unknown [id number] 2.16.840.1.882810.3.579.2.531 Unknown [id number] 2.16.840.1.036844.3.579.2.531 Unknown [id number] 2.16.840.1.819214.3.579.2.531 Unknown [id number] 2.16.840.1.187504.3.579.2.531 Unknown [id number] 2.16.840.1.735904.3.579.2.531 Unknown [id number] 2.16.840.1.766917.3.579.2.531 Unknown [id number] 2.16.840.1.373121.3.579.2.531 Unknown [id number] 2.16.840.1.462291.3.579.2.531 Unknown [id number] 2.16.840.1.602391.3.579.2.531 Unknown [id number] 2.16.840.1.670170.3.579.2.531 Unknown [id number] 2.16.840.1.103068.3.579.2.531 Unknown [id number] 2.16.840.1.004821.3.579.2.531 Unknown [id number] 2.16.840.1.360162.3.579.2.531 Unknown [id number] 2.16.840.1.035588.3.579.2.531 Unknown [id number] 2.16.840.1.265029.3.579.2.531 Social History Date Type Detail Facility Start: 04-20-2023 Sex Assigned At [facility] Other Start: 10-23-2021 End: 05-12-2023 Tobacco smoking status [facility] Never smoked tobacco (finding) [facility] Start: 1960 Sex Assigned At Female [facility] Start: 09-22-2022 Tobacco use and exposure Smokeless tobacco non-user [facility] Start: 04-20-2023 Alcohol intake Lifetime non-d alexei (finding) [facility] Start: 04-20-2023 History of Social function [facility] Start: 09-18-2022 Alcohol Comment Caffeine intak e: 2-3 cups per day [facility] Start: 1960 Sex Assigned At Not on file [facility] NEGATED: Highlighted rowStart: NINF History of tobacco use Passive smoker [facility] Medical Equipment Procedure Code Equipment Code Equipment [...] intraocular lens implantation Posterior-chamber intraocular lens, pseudophakic [id number] FDA Start: 12-18-2022 Phacoemulsification of cataract [...] Desired Activity /State Clinical Notes 02-27-2021 to 04-28-2023 Note Date & Type Note Facility 04-28-2023 Progress note Note Date/Time April 28, 2023 9:09am [place] [address] Wound Center Provider Note Signed Patient: Kelsea Turcios MR#: [id number] : 1960 Acct:[id number] Age/Sex: 62 / F Copies to: Peri Tyson, DO Erica Diehl APRN~ HPI Date of Visit Date of Visit: Date of Service: 04/28/2023 Time of Service: 09:06 Narrative HPI: 04/28/23 Kelsea is a 62-year-old female [facility] for evaluation and treatment of bilateral lower extremity ulcerations that do appear to be venous in nature but also have a concern for some sort of an autoimmune condition like vasculitis. She does have irritable bowel listed in her diagnoses but she in unaware if she has crohns or UC. I seethat she did have a PVR done in late 2022 and this does show normal arterial blood flow. She also had a venous duplex done in early 2022 and it did show reflux at that time and I do want to redo this study to see if this has changed at all. I did tell Kelsea that I would like her to see a bioinformatics computer scientist, especially if the venous studies do not per se indicate venous issues. She did state understanding of this. I did discuss with her an anti-inflammatory diet as well as supplements that can support healing and this information was provided on her discharge paperwork. Today we did utilize a topical steroid andthis was Escribed to her pharmacy. I do not see any signs of acute infection attoday's visit. Kelsea will return to the office in approximately 2 weeks. She should elevate the legs when possible and use compression if she is able. She should follow with vascular as scheduled as well. 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: Personal vehicle Lives with:: Spouse Appetite Description: Within Normal Limits Smoking Status: Never smoker [facility] Medical History (Updated 04/28/23 @ 09:09 by Erica Diehl APRN) Abdominal pain Anxiety Arthritis Asthma CKD (chronic kidney disease), stage IV COPD (chronic obstructive pulmonary disease) Depression Diabetes Diarrhea GERD (gastroesophageal reflux disease) History of cataract bilateral Hypertension Irritable bowel disease Nausea Neuropathy On home oxygen therapy 4-5 L nasal cannula PTSD (post-traumatic stress disorder) Sleep apnea cpap Spinal stenosis Wound of right leg Surgical History H/O cataract extraction right H/O foot surgery bilateral H/O: section x 4 History of hysterectomy Hx of cholecystectomy Family History Son Hypertension Sister Hypertension Colon polyp Grandparent Breast cancer Grandparent Leukemia Brother Diabetes Social History Smoking Status: Never smoker Substance Use Type: None Social History Comments: 1 son lives with her and spouse Grafts History of Graft History of Graft?: No Exam Physical Exam Vital Signs: Temp Pulse Resp BP O2 Del Method O2 Flow Rate 97.0 F L 106 H 20 138/82 Nasal Cannula 4 04/28/23 08:50 04/28/23 08:50 04/28/23 08:50 04/28/23 08:50 04/28/23 08:50 04/28/23 08:50 Const General: cooperative, comfortable and no acute distress Nutritional Appearance: obese Orientation: alert, awake and oriented x3 Lower/Upper Extremity Exam Vascular Exam-Edema Left Lower Extremity: Edema Type: Non-Pitting Right Lower Extremity: Edema Type: Non-Pitting Vascular Exam-Pulses Left Brachial: Pulse Assessment Method: NIBP Objective Meds/Allergies Home Medications cholecalciferol (vitamin D3) 50 mcg (2,000 unit) capsule 1 cap PO BID 12/16/16 [History Confirmed 04/28/23] montelukast 10 mg tablet 1 tab PO QHS 10/05/17 [History Confirmed 04/28/23] amlodipine 5 mg tablet 10 mg PO QAM 01/24/18 [History Confirmed 04/28/23] brexpiprazole 2 mg tablet (Rexulti) 3 mg PO QAM depression 01/24/18 [History Confirmed 04/28/23] budesonide-formoterol HFA 160 mcg-4.5 mcg/actuation aerosol inhaler (Symbicort) 2 puff inhalation BID 01/24/18 [History Confirmed 04/28/23] carvedilol 6.25 mg tablet 25 mg PO BID 01/24/18 [History Confirmed 04/28/23] hydrocodone 5 mg-acetaminophen 325 mg tablet 5 mg PO TID PRN Back Pain 01/24/18 [History Confirmed 04/28/23] magnesium oxide 400 mg PO DAILY 01/24/18 [History Confirmed 04/28/23] omeprazole 40 mg capsule,delayed release 40 mg PO QAM 01/24/18 [History Confirmed 04/28/23] oxybutynin chloride 10 mg tablet,extended release 24 hr 10 mg PO QAM 01/24/18 [History Confirmed 04/28/23] albuterol sulfate 90 mcg/actuation aerosol inhaler (ProAir HFA) 1 puff inhalation Q4H PRN Wheezing 07/29/21 [History Confirmed 04/28/23] amitriptyline 10 mg tablet 10 mg PO QAM 07/29/21 [History Confirmed 04/28/23] dicyclomine 20 mg tablet 20 mg PO QID ibs 07/29/21 [History Confirmed 04/28/23] fluticasone propionate 50 mcg/actuation nasal spray,suspension 1 spray intranasal DAILY 07/29/21 [History Confirmed 04/28/23] hydroxyzine HCl 10 mg tablet 10 mg PO TID 07/29/21 [History Confirmed 04/28/23] ipratropium 0.5 mg-albuterol 3 mg (2.5 mg base)/3 mL nebulization soln 3 ml inhalation Q6H PRN Wheezing 07/29/21 [History Confirmed 04/28/23] levomilnacipran 120 mg capsule,24 hr,extended release (Fetzima) 120 mg PO QAM depression 07/29/21 [History Confirmed 04/28/23] levothyroxine 75 mcg tablet 50 mcg PO QAM 07/29/21 [History Confirmed 04/28/23] mirtazapine 30 mg tablet (Remeron) 30 mg PO QHS 07/29/21 [History Confirmed 04/28/23] sucralfate 1 gram tablet 1 g PO TID 07/29/21 [History Confirmed 04/28/23] zonisamide 50 mg capsule 25 mg PO BID 07/29/21 [History Confirmed 04/28/23] cyclobenzaprine 10 mg tablet 10 mg PO HS 08/16/21 [History Confirmed 04/28/23] duloxetine 60 mg capsule,delayed release sprinkle 60 mg PO QAM 08/16/21 [History Confirmed 04/28/23] gabapentin 100 mg capsule 600 mg PO BID 08/16/21 [History Confirmed 04/28/23] insulin glargine 100 unit/mL (3 mL) subcutaneous pen (Basaglar KwikPen U-100 Insulin) 40 unit subcut QHS 08/16/21 [History Confirmed 04/28/23] dapagliflozin propanediol 5 mg tablet (Farxiga) 5 mg PO QAM 12/05/22 [History Confirmed 04/28/23] insulin lispro-aabc 100 unit/mL subcutaneous pen (Lyumjev KwikPen U-100 Insulin)30 unit subcut TID.AC 12/05/22 [History Confirmed 04/28/23] furosemide 40 mg tablet 40 mg PO DAILY 04/28/23 [History Confirmed 04/28/23] triamcinolone acetonide 0.1 % topical ointment 1 applic topical BID 2 weeks #30 grams 04/28/23 [Rx] Allergies codeine Allergy (Verified 04/28/23 08:54) Rash honey Allergy (Verified 04/28/23 08:54) Hives morphine Allergy (Verified 04/28/23 08:54) Gastrointestinal Upset tramadol Allergy (Verified 04/28/23 08:54) Hallucinating Wound/Ulcer Left Lower Leg: Type: Venous Stasis Ulcer Thickness: Skin Breakdown Bed Appearance: Beefy Red and Wisdom Percent of Wound Bed Granulated/Red: 100 Percent of Devitalized: 0 Length (cm): 0.6 Width (cm): 0.5 Depth (cm): 0.1 CM Sq: 0.300 Surrounding Tissue Appearance: Hyperpigmented Surrounding Tissue Temp: Warm Drainage Amount: Scant Drainage Odor: No Odor Right Lower Leg: Type: Venous Stasis Ulcer Thickness: Skin Breakdown Bed Appearance: Beefy Red and Wisdom Percent of Wound Bed Granulated/Red: 100 Percent of Devitalized: 0 Length (cm): 0.6 Width (cm): 0.8 Depth (cm): 0.1 CM Sq: 0.480 Surrounding Tissue Appearance: Hyperpigmented Surrounding Tissue Temp: Warm Drainage Amount: Scant Drainage Odor: No Odor Results Height: 5 ft Weight: 113.398 kg Body Mass Index: 48.8 Assessment/Plan Assessment/Plan (1) Ulcer of right lower leg: Code(s): L97.919 - Non-pressure chronic ulcer of unspecified part of right lower leg with unspecified severity (2) Ulcer of left lower leg: Code(s): L97.929 - Non-pressure chronic ulcer of unspecified part of left lower leg with unspecified severity (3) Venous stasis dermatitis of both lower extremities: Code(s): I87.2 - Venous insufficiency (chronic) (peripheral) (4) COPD (chronic obstructive pulmonary disease): Qualifiers: COPD type: emphysema Emphysema type: unspecified Qualified Code(s): J43.9 - Emphysema, unspecified Code(s): J44.9 - Chronic obstructive pulmonary disease, unspecified (5) TANYA (obstructive sleep apnea): Code(s): G47.33 - Obstructive sleep apnea (adult) (pediatric) (6) Diabetes: Qualifiers: Diabetes mellitus type: type 2 Diabetes mellitus complication status: with neurologic complications Diabetes mellitus complication detail: with polyneuropathy Code(s): E11.9 - Type 2 diabetes mellitus without complications (7) Morbid obesity: Code(s): E66.01 - Morbid (severe) obesity due to excess calories (8) CKD (chronic kidney disease) stage 3, GFR 30-59 ml/min: Qualifiers: Chronic kidney disease stage 3 subtype: stage 3b (GFR 30-44) Qualified Code(s): N18.32 - Chronic kidney disease, stage 3b Code(s): N18.3 - Chronic kidney disease, stage 3 (moderate) (9) Debility: Code(s): R53.81 - Other malaise (10) Peripheral edema: Code(s): R60.9 - Edema, unspecified (11) Irritable bowel disease: Code(s): K58.9 - Irritable bowel syndrome without diarrhea (12) On home oxygen therapy: Code(s): Z99.81 - Dependence on supplemental oxygen (13) Inflammation: Plan see orders and hpi Time spent with patient Time Spent With Patient (min): 15 Dictated By: Erica Diehl APRN DD/ 5 Signed By: <Electronically signed by LUCI Diehl> 04/28/2315 [facility] Work Phone: 1(851) 439-194212-07-2023 Evaluation note* Encounter Date Diagnosis Assessment Notes Treatment Notes Treatment Clinical Notes Mar, Diarrhea (ICD-10 - R19.7) [facility] Other 11-13-2023 Evaluation note* Encounter Date Diagnosis Assessment Notes Treatment Notes Treatment Clinical Notes Feb, Controlled type 2 diabetes mellitus with complication, without long-term current use of insulin (ICD-10 - E11.8) [facility] Other 10-27-2023 Evaluation note* Encounter Date Diagnosis [...] evaluation. DIscussed possible need for vascular f/u [facility] Other 10-24-2023 Evaluation note* Encounter Date Diagnosis Assessment Notes Treatment Notes Treatment Clinical Notes Jan, Controlled type 2 diabetes mellitus with complication, without long-term current use of insulin (ICD-10 - E11.8) [facility] Other 10-19-2023 Progress note Author Roxane Bills [facility] January 29, 2023 9:44am Note Date/Time January 29, 2023 9 :02am [facility] [place] [address] Hem/Onc Follow Up Note - OP Signed Patient: Kelsea Turcios MR#: [id number] : 1960 Acct:[id number] Age/Sex: 62 / F Type: REG RCR Copies to: DO Peri Deleon DO~ Subjective Date/Time of Service: Date of [...] a creatinine of 1.64 correlating to EGFR, gif-Anstsue-Veruisgl 32. This has not significantly changed over [...] H, IgM 107, Serum Immunofixation A, Free [place] LC, Quant 237.9 H, Free Lambda LC, Quant 38.0 H, Free [place]/Lambda Ratio 6.26 H 01/22/23 13:24: PHA Creatinine Clear 44.97, Sodium 141, Potassium 4.2, Chloride 100, Carbon Dioxide 32.1 H, Anion Gap 13.1, BUN 13, Creatinine 1.37 H, Est GFR (CKD- EPI) 43.118, Glucose 199 H, Calcium 8.6, Iron 74, TIBC 311, Iron Sdtvaypgya51.8, Transferrin 222, Ferritin 192.2, Total Bilirubin 0.4, [...] % (Auto) 64.2, Lymph % (Auto) 25.5, Monona % (Auto) 5.6, Eos % (Auto) 4.2, Baso % (Auto) 0.5, Nucleat RBC Rel Count 0.0, Neut # (Auto) 8.0 H, Lymph # (Auto) 3.2, Monona # (Auto) 0.7, Eos # (Auto) 0.5 [...] a creatinine of 1.64 correlating to EGFR, ddw-Wbpfppu-Ufgeukhg 32. This has not significantly changed over the last year but is lower than prior labs from 8986-0685. Most recent calcium within normal limits and [...] for coordination of care (as documented) and ixhe-lg-pzkt counseling of patient and/or family. Dictated By: Roxane Bills MD DD/ 0900 Signed By: <Electronically signed by MD Roxane Bills> 01/29/23 0944 [facility] Work Phone: 1(408) 529-662310-11-2023 Evaluation note* Encounter Date Diagnosis Assessment Notes Treatment Notes Treatment Clinical Notes Jan, Left hip pain (ICD-10 - M25.552) [facility] Other 10-02-2023 Evaluation note* Encounter Date Diagnosis Assessment Notes Treatment Notes Treatment Clinical Notes Jan, Other chronic pain (ICD-10 - G89.29) Jan, Lumbago with sciatica, left side (ICD-10 - M54.42) [facility] Other 09-05-2023 Evaluation note* Encounter Date Diagnosis Assessment Notes Treatment Notes Treatment Clinical Notes Dec, Acquired lymphedema of lower extremity (ICD-10 - I89.0) [facility] Other 07-17-2023 Evaluation note* Encounter Date Diagnosis Assessment Notes Treatment Notes Treatment Clinical Notes Oct, Type 2 diabetes mellitus with diabetic chronic kidney disease (ICD-10 - E11.22) [facility] Other 07-03-2023 Evaluation note* Encounter Date Diagnosis Assessment Notes Treatment Notes Treatment Clinical Notes Oct, Other chronic pain (ICD-10 - G89.29) [facility] Other 06-28-2023 Evaluation note* Encounter Date Diagnosis Assessment Notes Treatment Notes Treatment Clinical Notes Sep, Gait instability (ICD-10 - R26.81) [facility] Other 06-06-2023 Evaluation note* Encounter Date Diagnosis [...] obstructive pulmonary disease, unspecified (ICD-10 - J44.9) [facility] Other 05-30-2023 Evaluation note* Encounter Date Diagnosis Assessment Notes Treatment Notes Treatment Clinical Notes August, Lumbosacral spondylosis without myelopathy (ICD-10 - M47.817) [facility] Other 05-02-2023 Evaluation note* Encounter Date Diagnosis Assessment Notes Treatment Notes Treatment Clinical Notes August, Chronic obstructive pulmonary disease, unspecified (ICD-10 - J44.9) [facility] Other 04-21-2023 Evaluation note* Encounter Date Diagnosis Assessment Notes Treatment Notes Treatment Clinical Notes Jul, Controlled type 2 diabetes mellitus with complication, without long-term current use of insulin (ICD-10 - E11.8) [facility] Other 04-20-2023 Progress note Author Roxane Bills [facility] July 31, 2022 1:09pm Note Date/Time July 30, 2022 3:0 8pm [facility] [place] [address] Hem/Onc Follow Up Note - OP Signed Patient: Kelsea Turcios MR#: [id number] : 1960 Acct:[id number] Age/Sex: 61 / F Type: REG RCR Copies to: DO Peri Deleon DO~ Subjective Date/Time of Service: Date of [...] no new symptoms. Labs are reviewed and herirojuan has not improved over the last 6 [...] a creatinine of 1.64 correlating to EGFR, hmd-Rbnccop-Bcsnfnpc 32. This has not significantly changed over [...] pen (Roland Gomez U-100 Insulin) 15 unit subcut QAM 08/16/21 [...] - Last 7 Days 07/22/22 09:12: Free [place] Sands LC, Quant 120.4 H, Free Lambda LC, [...] a creatinine of 1.64 correlating to EGFR, gkv-Eyukrgh-Zfjaqzuq 32. This has not significantly changed over the last year butis lower than prior labs from 4943-1096. Most recent calcium within normal limits and [...] for coordination of care (as documented) and gmdu-vu-rigj counseling of patient and/or family. Dictated By: Roxane Bills MD DD/ 1507 Signed By: <Electronically signed by MD Roxane Bills> 07/31/22 1305 [facility] Work Phone: [phone] Evaluation note* Encounter Date Diagnosis Assessment Notes Treatment Notes Treatment Clinical Notes Jul, Essential hypertension (ICD-10 - I10) [facility] Other 04-06-2023 Evaluation note* Encounter Date Diagnosis Assessment Notes Treatment Notes Treatment Clinical Notes Jul, Type 2 diabetes mellitus with diabetic chronic kidney disease (ICD-10 - E11.22) [facility] Other 04-03-2023 Evaluation note* Encounter Date Diagnosis Assessment Notes Treatment Notes Treatment Clinical Notes Jul, Essential hypertension (ICD-10 - I10) [facility] Other 03-27-2023 Evaluation note* Encounter Date Diagnosis [...] discussion, agrees with plan, denies any questions. [facility] Other 03-23-2023 NoteCONSULTATION CONSULTATION DATE: 07/03/2022 TO: Dr. Tyson [facility], [place] CHIEF COMPLAINT: Left lower back pain. HISTORY: [...] one pill up to b.i.d. as tolerated.[facility] [id number] Evaluation note* Encounter Date Diagnosis Assessment Notes Treatment Notes Treatment Clinical Notes Jun, Type 2 diabetes mellitus with diabetic chronic kidney disease (ICD-10 - E11.22) Jun, Acquired lymphedema of lower extremity (ICD-10 - I89.0) Jun, Cough (ICD-10 - R05.9) [facility] Other 02-02-2023 Evaluation note* Encounter Date Diagnosis Assessment Notes Treatment Notes Treatment Clinical Notes May, Conjunctivitis (ICD-10 - H10.9) [facility] Other 01-25-2023 Evaluation note* Encounter Date Diagnosis [...] on current dose of antihypertensives, will continue [facility] Other 01-24-2023 NoteCONSULTATION CONSULTATION DATE: 05/06/2022 CHIEF COMPLAINT: Low back pain, bilateral lower extremity pain. HISTORY OF PRESENT ILLNESS: This is a 61-year-old female who is referred to us by Dr. Peri Tyson from [facility]. The patient has had chronic [...] kidney disease. The patient takes half a [place] tablet on a p.r.n. basis, duloxetine 60 [...] patient responds, we can increase that to [place] 5/325 on a t.i.d. basis. I would [...] CC: Peri Tyson D.O. Brenden Groves D.O.[facility] [id number] Progress note Author Shanae Galicia [facility] April 23, 2022 12:40pm Note Date/Time April 23, 2022 1 1:14[facility] [place] [address] Hem/Onc Follow Up Note - OP Signed Patient: Kelsea Turcios MR#: [id number] : 1960 Acct:[id number] Age/Sex: 61 / F Type: REG RCR [...] a creatinine of 1.64 correlating to EGFR, bmx-Qszgytx-Mbtjoazl 32. This has not significantly changed over [...] & no additional complaints except as documented PMF - Medical History Medical History: Medical History [...] 3.4, Globulin (PEP) 3.9, Albumin/Globulin (PEP) 0.9, Zudod-1-Nagberlnv 0.3, Llrbk-5-Rzwvgkjjz 0.9, Beta Globulins 1.4 H, Gamma Globulins 1.3, M-Damien 0.4 H, PEP Note , IgG 1443, IgA 625 H, IgM 98, Free [place] LC, Quant 162.6 H, Free Lambda LC, Quant 44.5 H, Free [place]/Lambda Ratio 3.65 H 04/17/22 10:05: PHA Creatinine [...] % (Auto) 61.2, Lymph % (Auto) 24.5, Monona % (Auto) 7.9, Eos % (Auto) 5.9, Baso % (Auto) 0.5, Nucleat RBC Rel Count 0.2, Neut # (Auto) 6.6, Lymph # (Auto) 2.6, Monona # (Auto) 0.8, Eos # (Auto) 0.6 [...] a creatinine of 1.64 correlating to EGFR, ogr-Qqewkbb-Cpvnyhse 32. This has not significantly changed over the last year but is lower than prior labs from 2381-2918. Most recent calcium within normal limits and [...] for coordination of care (as documented) and oscj-bd-bpls counseling of patient and/or family. Dictated By: Shanae Galicia APRN DD/ 1114 Signed By: <Electronically signed by LUCI Galicia> 04/23/22 1240 [facility] Work Phone: [phone] 660-774401-10-2023 Evaluation note* Encounter Date Diagnosis Assessment Notes Treatment Notes Treatment Clinical Notes Apr, Controlled substance agreement signed (ICD-10 - Z79.899) [facility] Other 01-09-2023 Evaluation note* Encounter Date Diagnosis Assessment Notes Treatment Notes Treatment Clinical Notes 09 Jony, 2023 Unspecified vitamin D deficiency (ICD9-CM - 268.9) Apr, Type 2 diabetes mellitus with diabetic chronic kidney disease (ICD-10 - E11.22) [facility] Other 11-28-2022 Evaluation note* Encounter Date Diagnosis Assessment Notes Treatment Notes Treatment Clinical Notes Feb, Type 2 diabetes mellitus with diabetic chronic kidney disease (ICD-10 - E11.22) [facility] Other 11-08-2022 Evaluation note* Encounter Date Diagnosis Assessment Notes Treatment Notes Treatment Clinical Notes Feb, Controlled substance agreement signed (ICD-10 - Z79.899) Feb, Abdominal pain (ICD-10 - R10.9) [facility] Other 11-03-2022 Evaluation note* Encounter Date Diagnosis Assessment Notes Treatment Notes Treatment Clinical Notes Feb, Acquired lymphedema of lower extremity (ICD-10 - I89.0) [facility] Other 11-01-2022 Evaluation note* Encounter Date Diagnosis Assessment Notes Treatment Notes Treatment Clinical Notes Feb, Type 2 diabetes mellitus without complications (ICD-10 - E11.9) [facility] Other 10-31-2022 Evaluation note* Encounter Date Diagnosis Assessment Notes Treatment Notes Treatment Clinical Notes Jan, UTI (urinary tract infection) (ICD-10 - N39.0) [facility] Other 10-24-2022 Evaluation note* Encounter Date Diagnosis [...] well controlled on current medications, will continue [facility] Other 10-12-2022 Evaluation note* Encounter Date Diagnosis Assessment Notes Treatment Notes Treatment Clinical Notes Jan, Controlled substance agreement signed (ICD-10 - Z79.899) [facility] Other 09-12-2022 Evaluation note* Encounter Date Diagnosis Assessment Notes Treatment Notes Treatment Clinical Notes Dec, Other chronic pain (ICD-10 - G89.29) Was working on previous PCP to wean down on dosage of [place] 5-325. She currently is not taking this every day. She has upcoming f/u for a back injection and was recommended to consider pain management referral for RFA. Can continue use of [place] sparingly as needed for severe pain. I [...] ?diagnosis of narcolepsy in setting of TANYA. [facility] Other 08-19-2022 Evaluation note* Encounter Date Diagnosis Assessment Notes Treatment Notes Treatment Clinical Notes Nov, Essential hypertension (ICD-10 - I10) [facility] Other 07-14-2022 Progress note Author Roxane Bills [facility] October 24, 2021 2:26pm Note Date/Time October 23, 2021 1:18 pm [facility] [place] [id number] Hem/Onc Follow Up Note - OP Signed Patient: Kelsea Turcios MR#: [id number] : 1960 Acct:[id number] Age/Sex: 61 / F Type: REG RCR [...] a creatinine of 1.64 correlating to EGFR, thm-Uzreiet-Vqwfrddv 32. This has not significantly changed over [...] a creatinine of 1.64 correlating to EGFR, uip-Ftquxfq-Wjczzjkb 32. This has not significantly changed over the last year but is lower than prior labs from 9293-9673. Most recent calcium within normal limits and [...] for coordination of care (as documented) and jwrf-un-blqx counseling of patient and/or family. Dictated By: Roxane Bills MD DD/ 1317 Signed By: <Electronically signed by MD Roxane Bills> 10/24/21 [facility] Work Phone: 1(726) 168-778707-11-2022 Evaluation note* Encounter Date Diagnosis Assessment Notes [...] repeat the chemistry panel at this time. [facility] Other 06-23-2022 Evaluation note* Encounter Date Diagnosis Assessment Notes Treatment Notes Treatment Clinical Notes Sep, Anemia NOS (ICD9-CM - 285.9) [facility] Other 06-09-2022 Evaluation note* Encounter Date Diagnosis Assessment Notes Treatment Notes Treatment Clinical Notes Sep, Type 2 diabetes mellitus with diabetic chronic kidney disease (ICD-10 - E11.22) [facility] Other 06-01-2022 Progress note Author Roxane Bills [facility] September 11, 2021 2:34pm Note Date/Time September 11, 2021 10:47 am [facility] [place] [address] Hem/Onc Follow Up Note - OP Signed Patient: Kelsea Turcios MR#: [id number] : 1960 Acct:[id number] Age/Sex: 60 / F Type: REG RCR [...] a creatinine of 1.64 correlating to EGFR, jvz-Wziaamn-Flxgnjnv 32. This has not significantly changed over the last year but is lower than prior labs from 2017- 2019. Most recent calcium within normal limits and [...] 100 unit/mL (3 mL) subcutaneous pen (Basaglar KristyPen U-100 Insulin) 15 unit SUBCUT QAM 08/16/21 [...] a creatinine of 1.64 correlating to EGFR, lvf-Lczzbkf-Avejagxj 32. This has not significantly changed over the last year but is lower than prior labs from 5698-6699. Most recent calcium within normal limits and [...] for coordination of care (as documented) and wmhq-ml-jppx counseling of patient and/or family. Dictated By: Roxane Bills MD DD/ 1045 Signed By: <Electronically signed by MD Roxane Bills> 09/11/21 1061 [facility] Work Phone: 1(678) 561-517405-12-2022 Evaluation note* Encounter Date Diagnosis Assessment Notes [...] back surgery. She reports prior injections at [facility] with Dr. Groves. She feels pain can negatively impact her daily activities and sleeping pattern. Prior to examining the patient, I independently reviewed office notes from referring provider, Dr Moreno. Pertinent imaging was also reviewed and discussed [...] negative findings were considered in medical decision-making. [employer] Other 05-07-2022 Consult note Author Roxane Bills [facility] August 16, 2021 10:27pm Note Date/Time August 16, 2021 10:19a m [facility] [place] [address] Hem/Onc Consult Note - OP Signed Patient: Kelsea Turcios MR#: [id number] : 1960 Acct:[id number] Age/Sex: 60 / F Type: REG RCR Copies to: DO Giovanni Deleon D.O.~ HPI Date/Time of Service: Date of Service: 08/16/2021 Time of Service: 10:19 Referring Provider/PCP: Referring Provider: Brenden Groves DO PCP: Giovanni Moreno DO - History of Present Illness Reason [...] a creatinine of 1.64 correlating to EGFR, rrf-Kajbfkn-Gaidsjuc 32. This has not significantly changed over the last year but is lower than prior labs from 2017- 2019. Most recent calcium within normal limits and we do not have recent imaging other than her MRIs which have not shown any bony lytic lesions. The patient does report diffuse pain. She has urinary tract infections intermittently but no other history of chronic infections. She has no personal history of malignancy, chemotherapy, or radiation therapy. [facility] - History Attestation statement: The following information [...] PNEUMONIA. Impression dictated by: Manish Mccurdy Jr., D.O.06/20/2021 2:41 PM Assessment and Plan (1) Neuropathy [...] a creatinine of 1.64 correlating to EGFR, wgh-Cvbxsxj-Dcgyjqwi 32. This has not significantly changed over the last year but is lower than prior labs from 3940-6316. Most recent calcium within normal limits and [...] for coordination of care (as documented) and tsyv-uz-lvne counseling of patient and/or family. Dictated By: Roxane Bills MD DD/ 1019 Signed By: <Electronically signed by MD Roxane Bills> 08/16/21 2608 [facility] Work Phone: [phone]) 784-164104-27-2022 Evaluation note* Encounter Date Diagnosis Assessment Notes [...] the patient did have an MRI at [facility] about 1 year ago. This showed [...] multiple times a day from the [facility]. I have gradually weaned her dose down and I explained her that my plan is to continue to wean the dose down as I do not typically treat chronic pain with opiates. She has been cooperative with this. She may get opinion from her neurologist or when she establishes with pain management. Jul, Other chronic pain (ICD-10 - G89.29) [employer] Other 04-27-2022 Evaluation note* Encounter Date Diagnosis Assessment Notes Treatment Notes Treatment Clinical Notes Jul, Acquired lymphedema of lower extremity (ICD-10 - I89.0) Jul, Type 2 diabetes mellitus with diabetic chronic kidney disease (ICD-10 - E11.22) [employer] Other 04-11-2022 Evaluation note* Encounter Date Diagnosis [...] ahead and recheck it in 3 months. [employer] Other 03-15-2022 Evaluation note* Encounter Date Diagnosis Assessment Notes Treatment Notes Treatment Clinical Notes Jun, Acquired lymphedema of lower extremity (ICD-10 - I89.0) [employer] Other 03-10-2022 Evaluation note* Encounter Date Diagnosis [...] compression stockings, keeping legs elevated, and activity. [employer] Other 02-23-2022 Evaluation note* Encounter Date Diagnosis Assessment Notes Treatment Notes Treatment Clinical Notes May, Type 2 diabetes mellitus with diabetic chronic kidney disease (ICD-10 - E11.22) [employer] Other 02-10-2022 Evaluation note* Encounter Date Diagnosis Assessment Notes Treatment Notes Treatment Clinical Notes May, Acquired lymphedema of lower extremity (ICD-10 - I89.0) [employer] Other 02-10-2022 Evaluation note* Encounter Date Diagnosis Assessment Notes Treatment Notes Treatment Clinical Notes May, Type 2 diabetes mellitus with diabetic chronic kidney disease (ICD-10 - E11.22) Initially looked at the patient's A1c and started on Ozempic. Her A1c is actually only 6.7% we will continue her on her current regimen. 10 Feb, 2022 Acquired lymphedema of lower extremity (ICD-10 - [...] will work-up further. Follow-up in 4 weeks. [employer] Other 02-02-2022 Evaluation note* Encounter Date Diagnosis Assessment Notes Treatment Notes Treatment Clinical Notes May, Unspecified vitamin D deficiency (ICD9-CM - 268.9) [employer] Other 01-19-2022 Evaluation note* Encounter Date Diagnosis [...] following her next appointment with vascular surgery. [employer] Other 12-21-2021 Evaluation note* Encounter Date Diagnosis [...] stop it altogether at this point. Mar, jail (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 (ICD-10 - Z79.4) [employer] Other 12-09-2021 Evaluation note* Encounter Date Diagnosis Assessment Notes Treatment Notes Treatment Clinical Notes Mar, GERD (gastroesophageal reflux disease) (ICD-10 - K21.9) [employer] Other 11-22-2021 Evaluation note* Encounter Date Diagnosis [...] will undergo full functional venous duplex examination. [employer] Other 11-17-2021 Evaluation note* Encounter Date Diagnosis Assessment Notes Treatment Notes Treatment Clinical Notes Feb, Encounter for screening mammogram for malignant neoplasm of breast (ICD-10 - Z12.31) [facility] Other Evaluation [facility]No [facility] Other evaluation note* Diagnosis Onset Date Resolution Status Monoclonal gammopathy acute Degenerative joint disease of cervical and lumbar spin e acute Iron deficiency anemia acute Bipolar disorder with depression chronic CKD (chronic kidney disease) stage 3, GFR 30-59 ml/min chronic COPD (chronic obstructive pulmonary disease) chronic Diabetes chronic Morbid obesity chronic 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 [facility] Work Phone: evaluation noteNo assessment information available [facility] Work Phone: evaluation note* Diagnosis Onset Date Resolution Status Degenerative joint disease of cervical and lumbar spin e acute Iron deficiency anemia acute Bipolar disorder with depression chronic CKD (chronic kidney disease) stage 3, GFR 30-59 ml/min chronic COPD (chronic obstructive pulmonary disease) chronic Diabetes chronic Morbid obesity chronic 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 [facility] Work Phone: evaluation note* Diagnosis Onset Date Resolution Status Degenerative joint disease of cervical and lumbar spin e acute Bipolar disorder with depression chronic CKD (chronic kidney disease) stage 3, GFR 30-59 ml/min chronic COPD (chronic obstructive pulmonary disease) chronic Diabetes chronic Iron deficiency anemia chron ic Morbid obesity chronic 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 [facility] Work Phone: evaluation note* Diagnosis Onset Date Resolution Status Bipolar disorder with depression chronic CKD (chronic kidney disease) stage 3, GFR 30-59 ml/min chronic COPD (chronic obstructive pulmonary disease) chronic 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 chronic Diabetes chronic Morbid obesity chronic 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 Iron deficiency anemia resol uma Debility acute Inflammation acute Irritable bowel disease acut e On home oxygen therapy acute Peripheral edema acute Ulcer of left lower leg acut e Ulcer of right lower leg acu te CKD (chronic kidney disease) stage 3, GFR 30-59 ml/min chronic COPD (chronic obstructive pulmonary disease) chronic Diabetes chronic Morbid obesity chronic TANYA (obstructive sleep apnea) chronic Venous stasis dermatitis of both lower extremities resolved [facility] Work Phone: Evaluation note* Diagnosis Diabetes mellitus due to underlying condition with diabetic polyneuropathy, with long-term current use of insulin ([facility]) documented in this encounter [facility]* Diagnosis Onset Date Resolution Status Bipolar disorder with depression chronic CKD (chronic kidney disease) stage 3, GFR 30-59 ml/min chronic COPD (chronic obstructive pulmonary disease) chronic 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 chronic Diabetes chronic Morbid obesity chronic 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 Iron deficiency anemia resol uma Debility acute Inflammation acute Irritable bowel disease acut e On home oxygen therapy acute Peripheral edema acute Ulcer of left lower leg acut e Ulcer of right lower leg acu te Venous reflux acute CKD (chronic kidney disease) stage 3, GFR 30-59 ml/min chronic COPD (chronic obstructive pulmonary disease) chronic Diabetes chronic Morbid obesity chronic TANYA (obstructive sleep apnea) chronic Venous stasis dermatitis of both lower extremities resolved Symptomatic varicose veins of both lower extremities acute Venous reflux acute [facility] Work Phone: History general Narrative - Reported* Type Description Date Medical History asthma Medical History diabetes mellitus II Medical History sleep apnea Medical History Hypertension Medical History spinal stenosis Medical History COPD Medical History GERD Medical History anxiety Surgical History right and left Foot Surgery 3/ 013 Surgical History hysterectomy 2009 Surgical History cholecystectomy 2008 Surgical History C section x 4 Hospitalization History see above Hospitalization History child x 4 Hospitalization History BiOxyD[facility] Other History general Narrative - ReportedNoikaSystems [employer] Other History general Narrative - Reported* Type [...] Surgical History right and left Foot Surgery 3/ 013 Surgical History hysterectomy 2009 Surgical History cholecystectomy 2009 Surgical History C section x 4 Hospitalization History see above Hospitalization History child x 4 Hospitalization History [facility]OxyD[facility] Other Hospital Discharge instructions Additional Instructions POST [...] worsening of your eyesight. Please call your chief of hospital medicine during normal business hours. If after business hours call Dr. Nik Pineda at his cell [phone] or his office [phone].[facility] Work Phone: Progress note Author Shanae Sharmaromaholly [facility] April 23, 2022 12:40pm Note Date/Time April 23, 2022 1 1:14[facility] [place] [id number] Hem/Onc Follow Up Note - OP Signed Patient: Kelsea Turcios MR#: [id number] : 1960 Acct:[id number] Age/Sex: 61 / F Type: REG RCR [...] a creatinine of 1.64 correlating to EGFR, zvt-Ofrlmvf-Xtmktllb 32. This has not significantly changed over [...] & no additional complaints except as documented PMF - Medical History Medical History: Medical History [...] 3.4, Globulin (PEP) 3.9, Albumin/Globulin (PEP) 0.9, Gtucm-2-Tmtrmrqeg 0.3, Zuntj-2-Xjotcdadz 0.9, Beta Globulins 1.4 H, Gamma Globulins 1.3, M-Damien 0.4 H, PEP Note , IgG 1443, IgA 625 H, IgM 98, Free [place] LC, Quant 162.6 H, Free Lambda LC, Quant 44.5 H, Free [place]/Lambda Ratio 3.65 H 04/17/22 10:05: PHA Creatinine [...] % (Auto) 61.2, Lymph % (Auto) 24.5, [place] % (Auto) 7.9, Eos % (Auto) 5.9, Baso % (Auto) 0.5, Nucleat RBC Rel Count 0.2, Neut # (Auto) 6.6, Lymph # (Auto) 2.6, [place] # (Auto) 0.8, Eos # (Auto) 0.6 [...] a creatinine of 1.64 correlating to EGFR, bpw-Juzcckc-Aazdcbmb 32. This has not significantly changed over the last year but is lower than prior labs from 1050-1262. Most recent calcium within normal limits and [...] biopsy. Due to her large body habitus weaustinll set up bone marrow biopsy with interventional [...] for coordination of care (as documented) and ddbl-nw-pnet counseling of patient and/or family. Dictated By: Shanae Galicia APRN DD/ 1114 Signed By: <Electronically signed by LUCI Galicia> 04/23/22 1240 [facility] Work Phone: Progress note Author Erica Diehl [facility] May 12, 2023 8:28am Note Date/Time May 12, 2023 8 :28am [facility] [address] [place] [address] Wound Center Provider Note Signed Patient: Kelsea Turcios MR#: [id number] : 1960 Acct:[id number] Age/Sex: 62 / F Copies to: Peri Tyson, DO Erica Diehl APRN~ HPI Date of Visit Date of Visit: Date of Service: 05/12/2023 Time of Service: 08:22 Narrative HPI: 04/28/23 Kelsea is a 62-year-old female [facility] for evaluation and treatment of bilateral lower extremity ulcerations that do appear to be venous in nature but also have a concern for some sort of an autoimmune condition like vasculitis. She does have irritable bowel listed in her diagnoses but she in unaware if she has crohns or UC. I seethat she did have a PVR done in late 2022 and this does show normal arterial blood flow. She also had a venous duplex done in early 2022 and it did show reflux at that time and I do want to redo this study to see if this has changed at all. I did tell Kelsea that I would like her to see a bioinformatics computer scientist, especially if the venous studies do not per se indicate venous issues. She did state understanding of this. I did discuss with her an anti-inflammatory diet as well as supplements that can support healing and this information was provided on her discharge paperwork. Today we did utilize a topical steroid andthis was Escribed to her pharmacy. I do not see any signs of acute infection attfiona's visit. Kelsea will return to the office in approximately 2 weeks. She should elevate the legs when possible and use compression if she is able. She should follow with vascular as scheduled as well. 05/12/23 healed today, venous study did reveal severe reflux in the lle and a continuous flow in the rle, we did send that referral yesterday and she needs tocall them back today to schedule, is aware to call us if she develops the ulcersagain and very likely she will given the reflux issues, compression and elevation and weight loss will be supportive of the prevention and healing processes, coconut oil was applied today and the steroid was stopped for the week- she can resume this or just use the coconut oil routinely, no acute infection noted 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: Personal vehicle Lives with:: Spouse Appetite Description: Within Normal Limits Smoking Status: Never smoker [facility] Medical History (Updated 05/12/23 @ 08:27 by Erica Diehl APRN) PTSD (post-traumatic stress disorder) Depression Neuropathy Arthritis History of cataract bilateral CKD (chronic kidney disease), stage IV Irritable bowel disease Wound of right leg Anxiety COPD (chronic obstructive pulmonary disease) Spinal stenosis Hypertension On home oxygen therapy 4-5 L nasal cannula Sleep apnea cpap Asthma Nausea Diarrhea GERD (gastroesophageal reflux disease) Abdominal pain Diabetes Surgical History H/O cataract extraction right H/O: section x 4 Hx of cholecystectomy History of hysterectomy H/O foot surgery bilateral Family History Son Hypertension Sister Hypertension Colon polyp Grandparent Breast cancer Grandparent Leukemia Brother Diabetes Social History Smoking Status: Never smoker Substance Use Type: None Social History Comments: 1 son lives with her and spouse Grafts History of Graft History of Graft?: No Exam Physical Exam Vital Signs: Temp Pulse Resp BP O2 Del Method O2 Flow Rate 97.3 F L 114 H 18 189/85 H Room Air 4 05/12/23 08:17 05/12/23 08:17 05/12/23 08:17 05/12/23 08:17 05/12/23 08:17 04/28/23 08:50 Const General: cooperative, comfortable and no acute distress Nutritional Appearance: obese Orientation: alert, awake and oriented x3 Lower/Upper Extremity Exam Vascular Exam-Edema Left Lower Extremity: Edema Type: Non-Pitting Right Lower Extremity: Edema Type: Non-Pitting Vascular Exam-Pulses Left Brachial: Pulse Assessment Method: NIBP Objective Meds/Allergies Home Medications cholecalciferol (vitamin D3) 50 mcg (2,000 unit) capsule 1 cap PO BID 12/16/16 [History Confirmed 04/28/23] montelukast 10 mg tablet 1 tab PO QHS 10/05/17 [History Confirmed 04/28/23] amlodipine 5 mg tablet 10 mg PO QAM 01/24/18 [History Confirmed 04/28/23] brexpiprazole 2 mg tablet (Rexulti) 3 mg PO QAM depression 01/24/18 [History Confirmed 04/28/23] budesonide-formoterol HFA 160 mcg-4.5 mcg/actuation aerosol inhaler (Symbicort) 2 puff inhalation BID 01/24/18 [History Confirmed 04/28/23] carvedilol 6.25 mg tablet 25 mg PO BID 01/24/18 [History Confirmed 04/28/23] hydrocodone 5 mg-acetaminophen 325 mg tablet 5 mg PO TID PRN Back Pain 01/24/18 [History Confirmed 04/28/23] magnesium oxide 400 mg PO DAILY 01/24/18 [History Confirmed 04/28/23] omeprazole 40 mg capsule,delayed release 40 mg PO QAM 01/24/18 [History Confirmed 04/28/23] oxybutynin chloride 10 mg tablet,extended release 24 hr 10 mg PO QAM 01/24/18 [History Confirmed 04/28/23] albuterol sulfate 90 mcg/actuation aerosol inhaler (ProAir HFA) 1 puff inhalation Q4H PRN Wheezing 07/29/21 [History Confirmed 04/28/23] amitriptyline 10 mg tablet 10 mg PO QAM 07/29/21 [History Confirmed 04/28/23] dicyclomine 20 mg tablet 20 mg PO QID ibs 07/29/21 [History Confirmed 04/28/23] fluticasone propionate 50 mcg/actuation nasal spray,suspension 1 spray intranasal DAILY 07/29/21 [History Confirmed 04/28/23] hydroxyzine HCl 10 mg tablet 10 mg PO TID 07/29/21 [History Confirmed 04/28/23] ipratropium 0.5 mg-albuterol 3 mg (2.5 mg base)/3 mL nebulization soln 3 ml inhalation Q6H PRN Wheezing 07/29/21 [History Confirmed 04/28/23] levomilnacipran 120 mg capsule,24 hr,extended release (Fetzima) 120 mg PO QAM depression 07/29/21 [History Confirmed 04/28/23] levothyroxine 75 mcg tablet 50 mcg PO QAM 07/29/21 [History Confirmed 04/28/23] mirtazapine 30 mg tablet (Remeron) 30 mg PO QHS 07/29/21 [History Confirmed 04/28/23] sucralfate 1 gram tablet 1 g PO TID 07/29/21 [History Confirmed 04/28/23] zonisamide 50 mg capsule 25 mg PO BID 07/29/21 [History Confirmed 04/28/23] cyclobenzaprine 10 mg tablet 10 mg PO HS 08/16/21 [History Confirmed 04/28/23] duloxetine 60 mg capsule,delayed release sprinkle 60 mg PO QAM 08/16/21 [History Confirmed 04/28/23] gabapentin 100 mg capsule 600 mg PO BID 08/16/21 [History Confirmed 04/28/23] insulin glargine 100 unit/mL (3 mL) subcutaneous pen (Basaglar KwikPen U-100 Insulin) 40 unit subcut QHS 08/16/21 [History Confirmed 04/28/23] dapagliflozin propanediol 5 mg tablet (Farxiga) 5 mg PO QAM 12/05/22 [History Confirmed 04/28/23] insulin lispro-aabc 100 unit/mL subcutaneous pen (Lyumjev KwikPen U-100 Insulin)30 unit subcut TID.AC 12/05/22 [History Confirmed 04/28/23] furosemide 40 mg tablet 40 mg PO DAILY 04/28/23 [History Confirmed 04/28/23] triamcinolone acetonide 0.1 % topical ointment 1 applic topical BID 2 weeks #30 grams 04/28/23 [Rx] Allergies codeine Allergy (Verified 04/28/23 08:54) Rash honey Allergy (Verified 04/28/23 08:54) Hives morphine Allergy (Verified 04/28/23 08:54) Gastrointestinal Upset tramadol Allergy (Verified 04/28/23 08:54) Hallucinating Wound/Ulcer Left Lower Leg: Type: Venous Stasis Ulcer Thickness: Skin Breakdown Percent of Devitalized: 0 Length (cm): 0 Width (cm): 0 Depth (cm): 0 CM Sq: 0.000 Surrounding Tissue Appearance: Ethnic/Norm Surrounding Tissue Temp: Warm Drainage Amount: None Drainage Odor: No Odor Right Lower Leg: Type: Venous Stasis Ulcer Thickness: Skin Breakdown Percent of Devitalized: 0 Length (cm): 0 Width (cm): 0 CM Sq: 0.000 Surrounding Tissue Appearance: Ethnic/Norm Surrounding Tissue Temp: Warm Drainage Amount: None Drainage Odor: No Odor Results Height: 5 ft Weight: 113.398 kg Body Mass Index: 48.8 Assessment/Plan Assessment/Plan (1) Ulcer of right lower leg: Code(s): L97.919 - Non-pressure chronic ulcer of unspecified part of right lower leg with unspecified severity Plan: healed 05/12/23 (2) Ulcer of left lower leg: Code(s): L97.929 - Non-pressure chronic ulcer of unspecified part of left lower leg with unspecified severity Plan: healed 05/12/23 (3) Venous stasis dermatitis of both lower extremities: Code(s): I87.2 - Venous insufficiency (chronic) (peripheral) (4) COPD (chronic obstructive pulmonary disease): Qualifiers: COPD type: emphysema Emphysema type: unspecified Qualified Code(s): J43.9 - Emphysema, unspecified Code(s): J44.9 - Chronic obstructive pulmonary disease, unspecified (5) TANYA (obstructive sleep apnea): Code(s): G47.33 - Obstructive sleep apnea (adult) (pediatric) (6) Diabetes: Qualifiers: Diabetes mellitus type: type 2 Diabetes mellitus complication status: with neurologic complications Diabetes mellitus complication detail: with polyneuropathy Code(s): E11.9 - Type 2 diabetes mellitus without complications (7) Morbid obesity: Code(s): E66.01 - Morbid (severe) obesity due to excess calories (8) CKD (chronic kidney disease) stage 3, GFR 30-59 ml/min: Qualifiers: Chronic kidney disease stage 3 subtype: stage 3b (GFR 30-44) Qualified Code(s): N18.32 - Chronic kidney disease, stage 3b Code(s): N18.3 - Chronic kidney disease, stage 3 (moderate) (9) Debility: Code(s): R53.81 - Other malaise (10) Peripheral edema: Code(s): R60.9 - Edema, unspecified (11) Irritable bowel disease: Code(s): K58.9 - Irritable bowel syndrome without diarrhea (12) On home oxygen therapy: Code(s): Z99.81 - Dependence on supplemental oxygen (13) Inflammation: (14) Venous reflux: Code(s): I87.2 - Venous insufficiency (chronic) (peripheral) Plan: lle severe Plan see orders and hpi Time spent with patient Time Spent With Patient (min): 10 Dictated By: Erica Diehl APRN DD/ 1 Signed By: <Electronically signed by LUCI Diehl> 05/12/23827 [facility] Work Phone: Reason for visit Narrativediscuss pain management [facility] Other Reason for visit NarrativeNeurosurgery Referral Update [facility] Other Reason for Referral Reason left hip pain Diagnosis 1 Left hip pain (M25.5 52) Referral Organization [facility] Family Medicamber Valadez Referring Provider First Name Peri Referring Provider Last Name Tyson Referring Provider Specialty [facility] [employer] Referred Organization [facility] Referred Address ,[place], [place],[address] Referred Provider Specialty Orthopaedic Surgery Referral Priority Routine Reason CANCELLED Excessiv e daytime somnolence, hx narcolepsy diagnosis, currently on CPAP for TANYA Diagnosis 1 TANYA (obstructive sle ep apnea) (G47.33) Referral Organization [facility] Family Rkamber Valadez Referring Provider First Name Peri Referring Provider Last Name [facility] Referring Provider Specialty [facility] [employer] Referred Organization [facility] Referred Address [address] [place] [place],[address] Referred Provider Specialty Sleep Medici ne Referral Priority Routine General Notes Elaina Salcido 03/2022 02:41:07 PM > referral received, Feli already faxed referral to Central Scheduling. Closing referral Reason * Waiting for appt neurology records pending Diagnosis 1 Low back pain, unspe cified (M54.50) Referral Organization [facility] Family Rkamber Valadez Referring Provider First Name Giovanni Referring Provider Last Name Josh Referring Provider Specialty [facility] Referred Organization [facility] Pain Managemen t Referred Provider Nicko Mckeon Referred Address [address] [address] ,[place], [place],[address] Referred Provider Specialty Pain Medicin e Referral Priority Routine General Notes Elaina Salcido 01:53:26 PM > referral received and sent p2p successful per log Reason * FU 07/29 ulcer Diagnosis 1 Non-pressure chronic ulcer of unspecified part of unspecified lower leg with unspecified severity (L97.909) Referral Organization [facility] Family Rkamber Valadez Referring Provider First Name Giovanni Referring Provider Last Name Josh Referring Provider Specialty [facility] [employer] Referred Organization [facility] Wound Ca re Hyperbaric Referred Address [address] [place],[address] Referred Provider Specialty Wound Care Referral Priority [...] gammopathy of unknown significance (MGUS) Chief Complaint BH d47.2 I73.9 Abnormal SPEP Open Wound ble ulcers ble varicose veins ble edema Reason for Visit Bipolar disorder wit h depression CKD (chronic kidney disease) stage 3, GFR 30-59 ml/min COPD (chronic obstructive pulmonary disease) Degenerative joint disease of cervical and lumbar spine Diabetes Morbid obesity 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) Iron deficiency anemia Debility Inflammation Irritable bowel disease On home oxygen therapy Peripheral edema Ulcer of left lower leg Ulcer of right lower leg CKD (chronic kidney disease) stage 3, GFR 30-59 ml/min COPD (chronic obstructive pulmonary disease) Diabetes Morbid obesity TANYA (obstructive sleep apnea) Venous stasis dermatitis of both lower extremities Chief Complaint d47.2 I73.9 Abnormal SPEP ble ulcers ble varicose veins ble edema Open Wound Reason for Visit Bipolar disorder wit h depression CKD (chronic kidney disease) stage 3, GFR 30-59 ml/min COPD (chronic obstructive pulmonary disease) Degenerative joint disease of cervical and lumbar spine Diabetes Morbid obesity 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) Iron deficiency anemia Debility Inflammation Irritable bowel disease On home oxygen therapy Peripheral edema Ulcer of left lower leg Ulcer of right lower leg CKD (chronic kidney disease) stage 3, GFR 30-59 ml/min COPD (chronic obstructive pulmonary disease) Diabetes Morbid obesity TANYA (obstructive sleep apnea) Venous stasis dermatitis of both lower extremities Chief Complaint Abnormal SPEP BH ble ulcers ble varicose veins ble edema Open Wound VENOUS INSUFF WITH ULCERS Reason for Visit Bipolar disorder wit h depression CKD (chronic kidney disease) stage 3, GFR 30-59 ml/min COPD (chronic obstructive pulmonary disease) Degenerative joint disease of cervical and lumbar spine Diabetes Morbid obesity 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) Iron deficiency anemia Debility Inflammation Irritable bowel disease On home oxygen therapy Peripheral edema Ulcer of left lower leg Ulcer of right lower leg Venous reflux CKD (chronic kidney disease) stage 3, GFR 30-59 ml/min COPD (chronic obstructive pulmonary disease) Diabetes Morbid obesity TANYA (obstructive sleep apnea) Venous stasis dermatitis of both lower extremities Symptomatic varicose veins of both lower extremities Venous reflux Family History Relationship Condition Age at Onset Recorded Date/T [place] natural son Hypertension Unknown sister Hypertension Unknown Polyp of colon Unknown grandparent Malignant neoplasm of breast Unknown grandparent Leukemia Unknown brother Diabetes mellitus Unknown Relationship Condition Age at Onset Recorded Date/T [place] natural son Hypertension Unknown sister Hypertension Unknown Polyp of colon Unknown grandparent Malignant neoplasm of breast Unknown grandparent Leukemia Unknown brother Diabetes mellitus Unknown Hypertension Unknown brother Hypertension Unknown father Unknown family member Unknown grandparent Malignant neoplasm Unknown Leukemia Unknown Not Specified Unknown Diabetes mellitus Unknown sister Diabetes mellitus Unknown Advance Directives Advance Directive Response Recorded Date/ Time Advance Directives No March 10:19am Advance Directive Response Recorded Date/ Time Advance Directives No March 9:19am Advance Directive Response Recorded Date/ Time Advance Directives No May 12, 2023 10:11am Summary Purpose Additional Source Comments REASON FOR VISIT (unrecogniz ed section and content) Reason Comments Med Refill Care Teams (unrecognized sec tion and content) Team Status: Active Member Role Status Dates Peri Tyson DO Primary Care Provider Active Team Status: Active Member Role Status Dates Roxane Bills MD Attending Provider Active Start: March 04, 2023 Brenden Groves DO Referring Provider Active Start: March 04, 2023 Peri Tyson DO Primary Care Provider Active Start: March 04, 2023 Shanae Galicia APRN Active Start: March 04, 2023 Team Status: Active Member Role Status Dates Peri Tyson DO Primary Care Provider Active Start: March 09, 2023 Truong Ward MD Attending Provider Active Start: March 09, 2023 Team Status: Inactive Member Role Status Dates Peri Tyson DO Primary Care Provider Active Start: May 08, 2023 End: May 08, 2023 Erica Diehl APRN Attending Provider Active St art: May 08, 2023 End: May 08, 2023 Team Status: Inactive Member Role Status Dates Peri Tyson DO Primary Care Provider Active Start: May 12, 2023 End: May 12, 2023 Erica Diehl APRN Attending Provider Active St art: May 12, 2023 End: May 12, 2023 Team Status: Inactive Member Role Status Dates Peri Tyson DO Primary Care Provider Active Start: May 27, 2023 End: May 27, 2023 Cresencio Chappell MD Attending Provider Active Start: May 27, 2023 End: May 27, 2023 Team Status: Active Member Role Status Dates Peri Tsyon DO Primary Care Provider Active Team Status: Inactive Member Role Status Alyssa Tyson DO Primary Care Provider Active Start: February 12, 2023 End: February 12, 2023 Roxane Bills MD Attending Provider Active Start: February 12, 2023 End: February 12, 2023 Team Status: Inactive Member Role Status Dates Peri Tyson DO Primary Care Provide r, Attending Provider Active Start: February 19, 2023 End: February 19, 2023 Team Status: Active Member Role Status Dates Roxane Bills MD Attending Provider Active Start: March 04, 2023 Brenden Groves DO Referring Provider Active Start: March 04, 2023 Peri Tyson DO Primary Care Provider Active Start: March 04, 2023 Shanae Galicia APRN Active Start: March 04, 2023 Team Status: Inactive Member Role Status Alyssa Tyson DO Primary Care Provider Active Start: May 08, 2023 End: May 08, 2023 Erica Diehl APRN Attending Provider Active St art: May 08, 2023 End: May 08, 2023 Team Status: Inactive Member Role Status Alyssa Tyson DO Primary Care Provider Active Start: May 12, 2023 End: May 12, 2023 Erica Diehl APRN Attending Provider Active St art: May 12, 2023 End: May 12, 2023 Team Status: Active Member Role Status Dates Peri Tyson , DO Primary Care Provider Active Start: February 09, 2023 Truong Ward MD Attending Provider Active Start: February 09, 2023 Team Status: Active Member Role Status Dates Peri Tyson , DO Primary Care Provider Active Start: April 28, 2023 Erica Diehl APRN Attending Provider Active St art: April 28, 2023 Team Status: Inactive Member Role Status Dates Peri Tyson , DO Primary Care Provider Active Ang Murphy MD Attending Provider Acti ve Team Status: Inactive Member Role Status Dates Peri Tyson , DO Primary Care Provider, Attending Simon vargas Active Team Status: Active Member Role Status Dates Peri Tyson , DO Primary Care Provider Active NON STAFF Attending Provider Active Team Status: Active Member Role Status Dates Roxane Bills MD Active Mohan Groves , DO Referring Provider Active Peri Tyson , DO Primary Care Provider Active Shanae Galicia APRN Attending Provider Acti ve Team Status: Inactive Member Role Status Dates Peri Tyson , DO Primary Care Provider Active Domenico Whitmore MD Attending Provider Active Team Status: Inactive Member Role Status Dates Peri Tyson , DO Primary Care Provider Active Jeannie Aguilar MD Attending Provider Active Team Status: Inactive Member Role Status Dates Giovanni Moreno , DO Primary Care Provider, Attending Provider Active Team Status: Inactive Member Role Status Dates Giovanni Moreno , DO Primary Care Provider Active Roxane Bills MD Attending Provider Active Team Status: Active Member Role Status Dates Giovanni Moreno , DO Primary Care Provider Active Roxane Bills MD Attending Provider Active Mohan Groves , DO Referring Provider Active Team Status: Inactive Member Role Status Dates Giovanni Moreno , DO Primary Care Provider Active Peri Tyson , DO Attending Provider Active Team Status: Active Member Role Status Dates Giovanni Moreno , DO Primary Care Provider Active Team Status: Inactive Member Role Status Dates Marcus Cummins MD Attending Provider Active Peri Tyson , DO Primary Care Provider Active Svetlana Garcia DO Referring Provider Active Team Status: Active [...] Primary Care Provider Active Shanae Galicia APRN Active Team Status: Inactive Member Role Status Dates Peri Tyson , DO Primary Care Provider Active Roxane Bills MD Attending Provider Active [employer] Developer Relationship Specialty Start Date End Date Giovanni Moreno MD [address] [place] [address] PCP - General Family Medicine 09/18/22 Team Status: Active Member Role Status Dates Peri Tyson , DO Primary Care Provider Active Start: March 09, 2023 Truong Ward MD Attending Provider Active Start: March 09, 2023 Team Status: Inactive Member Role Status Dates Peri Tyson , Primary Care Provider Active Start: May 27, 2023 End: May 27, 2023 Cresencio Chappell MD Attending Provider Active Start: May 27, 2023 End: May 27, 2023 Goals (unrecognized section and content) Goals may be documented in a n alternate section INFORMATION SOURCE (unrecogn ized section and content) DATE CREATED AUTHOR 07/15/2022 [facility] DATE CREATED AUTHOR AUTHOR'S ORGANIZ ATION 04/20/2023 [facility] DATE CREATED AUTHOR AUTHOR'S ORGANIZ ATION 05/18/2023 [facility] FOR RECORDS PERTAINING TO PATIENTS WHO [...] BE BASED ON THE PRIMARY CLINICAL RECORDS. [facility]. provides no warranty or guarantee of the accuracy or completeness of information in this document.
[2023-06-02 07:39] LABS: Glucometer 210 mg/dL (74-106)
[2023-06-02 07:58] VITALS: BP 130/80; PULSE 95; RESP 16; TEMP 36.3; O2SAT 98
[2023-06-02] MEDS: 0.9 % SODIUM CHLORIDE 500 ML 50 ML IV (08:02)
[2023-06-02] MEDS: LIDOCAINE HCL 2% 400 MG/20 ML MDV 9 ML INJ (08:39)
[2023-06-02] MEDS: METHYLPREDNISOLONE ACETATE 40 MG/ML VIAL INJ (08:39)
[2023-06-02] MEDS: BUPIVACAINE HCL 0.25% PF 25 MG/10 ML VIAL 4 ML INJ (08:39)
[2023-06-02 08:41] VITALS: BP 120/71; PULSE 90; RESP 16; O2SAT 97
[2023-06-02 08:46] VITALS: BP 126/66; PULSE 90; RESP 16; O2SAT 96
--- NOTE | 2023-06-02 08:56 | W.PM.PROCNOT ---
Date of procedure: 06/02/23 Pre-op diagnosis: Left Superior Gluteal Neuritis Post-op diagnosis: same as pre-op Procedure: Left Superior gluteal nerve Radiofrequency ablation PreOp diagnosis: pain secondary to superior gluteal neuritis Postop diagnosis same Under fluoroscopic guidance Rhizotomy was created using radio frequency ablation at 80?C for 90 seconds 1 to 2 lesions created at each site. Post lesioning injection of 2 mL each of 0.25% Marcaine and 2% lidocaine with Depo-Medrol 40mg. 0.5 to 1 mL injected at each site IV in place yes If Intravenous fluids: NS at KVO Anesthesia local 2% lidocaine for Anesthesia Other: MAC Timeout process compliant After informed consent obtained. Patient brought to the procedure room placed in the prone position skin overlying the area was prepped and draped in a sterile fashion using betadine. 25 gauge needle was used to create a skin wheal over each of the targeted areas utilizing 2% lidocaine. A rhizotomy needle with a 10 mm active tip was inserted over each of the anesthetized areas and directed towards four different areas in the distribution of the superior gluteal nerve, accomplished under fluoroscopic guidance. After encountering the same we had positive sensory stimulation, negative motor stimulation was noted. lesions were then created. Post lesioning, steroid solution was injected needles removed. Patient was transferred to recovery room in stable condition to be discharged home after meeting criteria. Anesthesia: MAC Surgeon: Ang Murphy Condition: stable
== END 2023-06-02 09:06 | disposition home or self-care (01) ==
LOC: SURGOUT 07:16
PROVIDERS: Visit Provider Anesthesiology Pain Medicine
PROC: (CPT 1992; principal; 2023-06-02 08:20)
DX: G57.82 Other specified mononeuropathies of left lower limb (principal)
CPT/HCPCS: 36415; 64640; 82948; J0665; J1030; J2704

== ENCOUNTER 2023-07-15 14:37 | Outpatient (OUT) | payer OTHER, SELFPAY ==
--- NOTE | 2023-07-15 15:19 | P.CN_ITS ---
Consult Note: HPI Data of Consult Patient: known to practice within the last 3 years Requesting Physician: Rachana London NP Primary Care Provider: [facility] Consult Narrative Reason for consult: f/u Narrative: Kelsea villatoro pleasant 62 year old female presents for evaluation and management of chronic low back pain. Patient notices increase in pain with walking and activity. Patient does get numbness tingling and weakness in bilateral legs, pain relieved with rest and leaning forward. Has been evaluated by NS and deemed non surgical, following with ortho currently as well. Patient would like to discuss additional options today. PT completed without benefit. Pain today 6.5/10 in low back with numbness tingling and weakness in bilateral legs. Recently underwent left superior gluteal RFA with >50% improvement in pain, now having significant pain in right superior gluteal nerve. cc:: CC: Rachana London NP Review of Systems ROS Status of ROS 10 or more systems reviewed and unremark able except as noted in history and below Musculoskeletal Reports: neck pain, extremity swelling and joint pain Meds Home Medications and Allergies Home Medications ?Medication ?Instructions ?Recorded ?Confirmed ?Type allopurinol 300 mg tablet 300 mg PO DAILY 10/30/22 06/02/23 History amlodipine 5 mg tablet (Norvasc) 5 mg PO DAILY 10/30/22 06/02/23 History benzonatate 100 mg capsule 100 mg PO TID 10/30/22 06/02/23 History brexpiprazole 3 mg tablet (Rexulti) 3 mg PO DAILY 10/30/22 06/02/23 History budesonide-formoterol HFA 160 2 inh inhalation BID 10/30/22 06/02/23 History mcg-4.5 mcg/actuation aerosol inhaler (Symbicort) carvedilol 25 mg tablet 25 mg PO BID 10/30/22 06/02/23 History cholecalciferol (vitamin D3) 50 2,000 unit PO BID 10/30/22 06/02/23 History mcg (2,000 unit) capsule colestipol 1 gram tablet 1 g PO BID 10/30/22 06/02/23 History dicyclomine 20 mg tablet 20 mg PO QID 10/30/22 06/02/23 History doxycycline hyclate 100 mg capsule 100 mg PO DAILY 10/30/22 06/02/23 History duloxetine 60 mg capsule,delayed 60 mg PO DAILY 10/30/22 06/02/23 History release (Cymbalta) furosemide 40 mg tablet 40 mg PO DAILY 10/30/22 06/02/23 History hydroxyzine HCl 10 mg tablet 10 mg PO Q8H 10/30/22 06/02/23 History insulin glargine 100 unit/mL (3 20 unit subcut DAILY 10/30/22 06/02/23 History mL) subcutaneous pen (Lantus Solostar U-100 Insulin) ipratropium 0.5 mg-albuterol 3 mg 3 ml inhalation Q6H 10/30/22 06/02/23 History (2.5 mg base)/3 mL nebulization soln ipratropium bromide 0.02 % 0.5 mg inhalation Q6H PRN 10/30/22 06/02/23 History solution for inhalation shortness of breath or wheezing levomilnacipran 120 mg capsule,24 120 mg PO DAILY 10/30/22 06/02/23 History hr,extended release (Fetzima) levothyroxine 50 mcg capsule 50 mcg PO DAILY 10/30/22 06/02/23 History magnesium oxide 500 mg PO DAILY 10/30/22 06/02/23 History mirtazapine 30 mg tablet 30 mg PO DAILY 10/30/22 06/02/23 History montelukast 10 mg tablet 10 mg PO DAILY 10/30/22 06/02/23 History (Singulair) omeprazole 40 mg capsule,delayed 40 mg PO DAILY 10/30/22 06/02/23 History release oxybutynin chloride 10 mg 10 mg PO DAILY 10/30/22 06/02/23 History tablet,extended release 24 hr sucralfate 1 gram tablet 1 g PO TID 10/30/22 06/02/23 History theophylline 200 mg 200 mg PO DAILY 10/30/22 06/02/23 History capsule,extended release 24 hr (Nishant-24) tizanidine 4 mg capsule (Zanaflex) 4 mg PO BID PRN muscle spasticity 10/30/22 06/02/23 History gabapentin 300 mg capsule 900 mg PO .HS 02/10/23 06/02/23 History gabapentin 600 mg tablet 600 mg PO DAILY 02/10/23 06/02/23 History gabapentin 600 mg tablet 600 mg PO TID #90 tabs 03/04/23 06/02/23 Rx hydrocodone 5 mg-acetaminophen 325 1 tab PO TID PRN pain #90 tabs 03/04/23 06/02/23 Rx mg tablet hydrocodone 5 mg-acetaminophen 325 1 tab PO TID PRN pain #90 tabs 06/08/23 Rx mg tablet hydrocodone 5 mg-acetaminophen 325 1 tab PO TID PRN pain #90 tabs 07/02/23 Rx mg tablet Allergies Allergy/AdvReac Type Severity Reaction Status Date / Time honey Allergy Severe Anaphylaxis Verified 12/30/22 08:12 codeine Allergy Mild itching Verified 12/30/22 08:12 morphine AdvReac Vomiting Verified 12/30/22 08:12 Exam Constitutional Documenting provider has reviewed patient's vital signs: yes Common normals: no apparent distress, oriented x3, healthy appearing, alert and well nourished General appearance: cooperative Nutritional appearance: obese HENMT Common normals: normocephalic, hearing grossly normal bilaterally and moist oral mucous membranes Head and scalp: normocephalic Eye Common normals: PERRL Pupil: PERRL Neck & C-Spine Common normals: full ROM General: normal visual inspection Chest Common normals: inspection of chest normal Respiratory Common normals: normal respiratory effort, no retractions and no use of accessory muscles Other: chronic O2 Back & Pelvis Lumbar spine/lower back: ROM limited, pain with ROM and straight leg raise negative bilaterally Sacroiliac joints: SI joint(s) abnormal (right SIJ tender over PSIS, positive gabi, thigh thrust and gaenslens. ) Other: intermittent numbness tingling and weakness to bilateral legs chronic low back pain positive facet loading bilaterally Extremity Common normals: normal to inspection Neuro Common normals: oriented x3, CN's II-XII intact bilaterally, moves all extremities, no focal motor deficits, no sensory deficits noted and deep tendon reflexes 2+ bilaterally Sensorium/orientation: alert Gait (neuro): antalgic and assistive device used walker Motor exam: strength 5/5 throughout and no movement abnormalities noted Psych Common normals: mental status grossly normal, thought process normal, cooperative, affect normal, speech normal and activity/motor behavior normal Speech: normal speech Thought process: normal thought process Results Additional Findings Additional findings: If on a controlled substance or opioids, I have checked an [place]AR[place] report on this patient and there are no aberrancies noted in the prescribing history.??If on a controlled substance or opioid a drug screen was completed and reviewed within the last year, and if there has not been a drug screen completed we ordered one today to monitor higher risk, state monitored pain medication use. As part of providing excellent, safe, comprehensive care, the following was completed at our patient's visit: 1. A medication reconciliation and review to ensure accurate knowledge of current/active medications, including asking our patients to inform us about any [id number] medications or herbal remedies/nutritional supplements/alternative remedies. 2. A review to specifically ensure our patients have had annual screening for screening for depression, screening for tobacco use, and screening for unhealthy alcohol use. For concerning screenings had a discussion with the patient, provided patient education, and recommended follow-up with primary care provider when appropriate. If patient noted with a risk of falling, they received education on strength, gait, and balance training to prevent future risk of falling. Assessment and Plan Assessment and Plan (1) Unspecified mononeuropathy of right lower limb: (2) Lumbar stenosis with neurogenic claudication: (3) Lumbar spondylosis: (4) Muscle spasm: (5) Encounter for long-term use of opiate analgesic: Assessment and Plan: I feel these medications are improving the patient's quality of life and allow them to tolerate activities of daily living as well as participate in recreational activity.? The patient does not report intolerable side effects. The patient is NOT opioid naive and non-pharmacologic and non-opioid treatment has failed to significantly relieve the patient's pain and improve functionality. The patient has a diagnosis that is related to a somatic or visceral pain etiology. ? ?? I reviewed with the patient the potential risks and side effects with the use of? opioid medications including but not limited to respiratory depression,? sedation, and even . I verified the patient has access to naloxone should? these effects occur. I advised the patient to avoid the use of any other? sedation substances including alcohol, THC, and benzodiazepines while? taking opioid medications due to the risk of compounding side effects and? detrimental outcomes. I reviewed the [employer], pain treatment agreement, urine? drug screen, and opioid start talking forms. The patient was advised to let? their family know they had Naloxone in case they would need to administer? the medication.? ?? A drug screen was completed within the last year, and no aberrancies were noted regarding their use of controlled substances. The patient understands they are subject to the terms and conditions of the pain contract that they have signed. ? ?? I have checked an [place]AR[place] report on this patient today and there are no aberr ancies noted in the prescribing history.? Plan right superior gluteal nerve block under fluoroscopy working towards thermal RFA continue current medications, tolerating well without side effects
== END 2023-07-15 14:38 | disposition home or self-care (01) ==
LOC: PM 14:37
PROVIDERS: Visit Provider Nurse Practitioner
DX: G57.91 Unspecified mononeuropathy of right lower limb (principal); M48.062 Spinal stenosis, lumbar region with neurogenic claudication; M47.816 Spondylosis without myelopathy or radiculopathy, lumbar region; M62.838 Other muscle spasm; Z79.891 Long term (current) use of opiate analgesic
CPT/HCPCS: G0463

== ENCOUNTER 2023-07-28 07:22 | Day surgery (SDC) | payer OTHER, SELFPAY ==
--- OUTSIDE RECORDS SUMMARY | 2023-07-28 07:26 | XMS_ITS | CCD ---
Author Organization [facility] Care Team Providers Care Insurance Claims Assistant Name Role Phone Giovanni Moreno Unavailable Domenico Whitmore Unavailable Nicko Mckeon Unavailable Adore Barroso Unavailable Josafat Nunes Unavailable DO Giovanni Moreno Primary Care Provider [phone] MD Roxane Bills Attending Provider DO Giovanni Moreno Attending Provider [phone] DO Mohan Groves Referring Provider DO Peri Tyson Attending Provider Peri Tyson Unavailable DO Giovanni Moreno Primary Care Provider DO Giovanni Moreno Primary Care Provider DO Criselda Tysonriluis Smith Attending Provider [phone] MD Marcus Cummins Attending Provider DO Peri Tyson Primary Care Provider DO Svetlana Garcia Referring Provider DO Giovanni Moreno Primary Care Provider [phone] DO Peri Tyson Attending Provider MD Roxane Bills Attending Provider DO Mohan Groves Referring Provider Tyson, DO Peri A Primary Care Provider Tyson, DO Peri A Attending Provider MD Roxane Bills Attending Provider DO Mohan Groves Referring Provider Jean-Paulmichael Lulú Unavailable VIJAY ., DR SANAM Melchor Admitting Unavailable VIJAY ., DR SANAM Melchor Attending Unavailable MIS, DR HOUSTON Primary Care Unavailable MACIEL ., JAIME Consulting Unavailable PADMAMIPATHNorberto ., NARENDRANATH Consulting Lynn vailable VIJAY ., DR SANAM Melchor Admitting Unavailable VIJAY ., DR SANAM Melchor Attending Unavailable MIS, DR HOUSTON Primary Care Unavailable VIJAY ., DR SANAM Melchor Consulting Unavailable MACIEL ., JAIME Consulting Unavailable Tyson, DO Peri A Primary Care Provider Tyson DO Peri A Attending Provider MD Domenico Whitmore Attending Provider DO Mohan Groves Referring Provider LUCI Galicia Attending Provider MD Jeannie Aguilar Attending Provider Marbella DO Peri A Primary Care Provider NON STAFF Attending Provider Unavailable Tyson, DO Peri A Attending Provider Marbella, DO Peri A Primary Care Provider MD Ang Murphy Attending Provider Unavailable DO Jez Josue A Attending Provider [phone] Marbella DO Peri A Primary Care Provider MD Nik Pineda Attending Provider Patsy Harvey Unavailable MD Roxane Bills Attending Provider DO Brenden Groves Referring Provider Tyson, DO Peri A Attending Provider Tyson, DO Peri A Primary Care Provider MD Nik Pineda Attending Provider Tyson, DO Peri A Attending Provider MD Roxane Bills Attending Provider DO Brenden Groves Referring Provider Tyson, DO Peri A Primary Care Provider MD Truong Ward Attending Provider Tyson, DO Peri A Attending Provider LUCI Diehl Attending Provider Tyson, DO Peri A Primary Care Provider LUCI Diehl Attending Provider Giovanni Moreno MD Primary Care Provider [phone] MD Roxane Bills Attending Provider [phone] Tyson, DO Peri A Primary Care Provider MD Truong Ward Attending Provider Tyson, DO Peri A Primary Care Provider LUCI Diehl Attending Provider Tyson, Peri A Primary Care Unavailable Truong Ward Attending Unavailab le Truong Ward Admitting Unavailab le Tyson, Peri A Primary Care Unavailable Brenden Groves Referring Unavailab le Roxane Bills Attending Unavailable Sanju, Roxane Admitting Unavailable Tyson, Peri A Primary Care Unavailable Tyson, Peri A Attending Unavailable Tyson, Peri A Admitting Unavailable Tyson, Peri A Primary Care Unavailable Sanju, Roxane Attending Unavailable Sanju, Roxane Admitting Unavailable Tyson, Peri A Primary Care Unavailable Tyson, Peri A Attending Unavailable Tyson, Peri A Admitting Unavailable Tyson, Peri A Primary Care Unavailable Copsey, Erica Attending Unavailable Copsey, Erica Admitting Unavailable Tyson, Peri A Primary Care Unavailable Copsey, Erica Attending Unavailable Copsey, Erica Admitting Unavailable Tyson, Peri A Primary Care Unavailable Angelaehrer, Domenico Attending Unavailable Buehrer, Domenico Admitting Unavailable Tyson, Peri A Primary Care Unavailable Jeff, Ahmad Attending Unavailable Jeff, Ahmad Admitting Unavailable Lakshmipathy, Narendranath Attending Unava ilable Lakshmipathy, Narendranath Admitting Unava ilable Tyson, Peri A Primary Care Unavailable Tyson, Peri A Primary Care Unavailable Nik Pineda J Attending Unavailable Dudenhoefkai, Nik J Admitting Unavailable Tyson, Peri A Primary Care Unavailable Tyson, Peri A Attending Unavailable Tyson, Peri A Admitting Unavailable Tyson, Peri A Primary Care Unavailable Jez Josue Attending Unavailable Jez Josue Admitting Unavailable Tyson, Peri A Primary Care Unavailable Nik Pineda J Attending Unavailable Anitahotawana Nik J Admitting Unavailable MACK PRIDE Attending Unavailable MACK PRIDE Attending Unavailable Allergies Allergy Classification Reported Allergen(s) Allergy Type Date of Onset Reaction(s) Facility (20 sources) Codeine Drug Allergy 10-24-19 22 Itching [facility] (20 sources) Honey Propensity to adverse reactions 09-08-19 20 anaphylaxis [facility] (20 sources) Morphine Drug Allergy 10-24-19 22 Rash [facility] (1 source) Codeine Drug Allergy 11-15-19 17 [facility] (1 source) Honey Drug allergy (disorder) 11-15-19 17 [facility] (1 source) Morphine Drug Allergy 11-15-19 17 [facility] (20 sources) traMADol Drug Allergy 12-19-19 23 hallucinations, Unknown Reaction, Hallucinating, Hallucinating, hallucinations [facility] (1 source) Morphine Drug Allergy Unknown [facility] Other (1 source) Codeine Drug Allergy 05-27-19 24 [facility] (1 source) Honey Drug allergy (disorder) 05-27-19 [facility] (1 source) Morphine Drug Allergy 05-27-19 [facility] (1 source) traMADol Drug Allergy 05-27-19 [facility] Medications Current Medications Medication Drug Class(es) Dates Sig (Normalized) Sig (Original) acetaminophen 325 mg / HYDROcodone bitartrate 5 mg oral tablet (20 sources) Opioid Agonist Start: 11-04-2021 take 0.5-1 tablets by mouth once daily as needed [place] 5-325 MG 1/2 to 1 tablet as needed Orally daily for 30 days Oct, Active Start: 11-01-2021 take 0.5-1 tablets b y mouth once daily as needed [place] 5-325 MG 1/2 to 1 tablet as needed Orally daily for 30 days Oct, Active Start: 10-02-2021 take 0.5-1 tablets b y mouth once daily as needed [place] 5-325 MG 1/2 to 1 tablet as needed Orally daily for 30 days Sep, Active Start: 09-02-2021 take 0.5-1 tablets b y mouth once daily as needed [place] 5-325 MG 1/2 to 1 tablet as needed Orally daily for 30 days August, Active Start: 07-03-2021 take 1 tablet by jocelin th twice daily as needed [place] 5-325 MG 1 tablet as needed Orally twice a day for 30 days Jun, Active Start: 06-05-2021 take 1 tablet by jocelin th twice daily as needed [place] 5-325 MG 1 tablet as needed Orally twice a day for 30 days May, Active Start: 04-30-2021 take 1 tablet by jocelin th twice daily as needed [place] 5-325 MG 1 tablet as needed Orally twice a day for 30 days Apr, Active Start: 04-29-2021 take 1 tablet by jocelin th twice daily as needed [place] 5-325 MG 1 tablet as needed Orally twice a day for 30 days Apr, Active Start: 03-25-2021 take 1 tablet by jocelin th twice daily as needed [place] 5-325 MG 1 tablet as needed Orally twice a day for 30 days Mar, Active Start: 01-24-2018 take 5 mg by mouth t hree times daily Hydrocodone-Acetaminophen Active 5 MG PO Three times daily January 24, 2018 12:00am Start: 01-24-2018 HYDROcodone-Ac etaminophen 5-325 MG 1 tablet as needed severe pain scale 9-10 Orally BID for 9 days Fill on or after 02/22/2022 Oct, Active Start: 12-16-2016 End: 04-17-2017 take 1 tablet by mouth every six hours Hydrocodone-Acetaminophen Discontinued 1 TAB PO Q6H December 16, 2016 12:00am April 17, 2017 11:02am take 1 tablet by jocelin th twice daily as needed [place] 5-325 MG 1 tablet as needed Orally twice a day Active [id number] actuat albuterol 0.09 mg/actuat metered dose [...] Inhaler Active 1 PUFF INHALATION Q4H July 29, 2021 12:00am Start: 12-26-2016 End: 04-17-2017 take 2.5 mg by inhalation every three hours Albuterol Sulfate Discontinued 2.5 MG INHALATION Q3H 30 30 December 26, 2016 12:00am April 17, 2017 11:07am take 1 puff(s) by in halation every [...] 3 ML INHALATION Four times daily August 16, 2021 12:00am August 16, 2021 10:33am Start: 07-29-2021 take 1 mL by inhalat ion every six hours Ipratropium-Albuterol Active 3 ML INHALATION Q6H July 29, 2021 12:00am Start: 02-16-2017 take 3 mL by inhalat ion every six hours Start: 02-16-2017 Start: 12-16-2016 End: 12-16-2016 Ipratropium-Albuterol Discon tinued December 16, 2016 12:00am December 16, 2016 4:10am amitriptyline hydrochloride 10 mg oral tablet (20 sources) Tricyclic Antidepressant Start: 07-29-2021 take 10 mg by mouth once daily in the morning Amitriptyline Active 10 MG PO Every morning July 29, 2021 12:00am amLODIPine 10 mg oral tablet (20 sources) Dihydropyridine Calcium Channel Apple Start: 06-15-2023 take 1 tablet by mouth once daily Amlodipine Active 0 .ROUTE .COMPLEX 90 June 15, 2023 9:10am TAKE 1 TABLET BY MOUTH EVERY DAY FOR 90 DAYS Start: 06-15-2023 End: 06-15-2023 take 10 mg by mouth once daily Amlodipine Discontinued 10 MG PO Daily June 15, 2023 1:00am June 15, 2023 9:10am Start: 07-21-2022 take 1 tablet by jocelin th in the morning amLODIPine (Norvasc) 10 MG tablet Take 10 mg by mouth in the morning. 0 07/21/2022 Active Start: 01-24-2018 End: 06-15-2023 take 10 mg by mouth once daily in the morning Amlodipine Discontinued 10 MG PO Every morning January 24, 2018 12:00am June 15, 2023 9:10am Start: 12-16-2016 End: 12-26-2016 take 1 tablet by mouth at bedtime Amlodipine Discontinued 1 TAB PO Bedtime December 16, 2016 12:00am December 26, 2016 12:19pm amoxicillin 500 mg oral tablet (6 sources) Penicillin-class Antibacterial Start: 02-10-2022 take 1 tablet by mouth every eight hours asenapine 5 mg sublingual tablet (20 sources) Atypical Antipsychotic take 5 mg under the tongue every twelve hours Saphris SL tablet Place 5 mg under the tongue every 12 (twelve) hours. 0 Active benzonatate 100 mg oral capsule (20 sources) Non-narcotic Antitussive Start: 06-15-2023 take 1 capsule by mouth three times daily as needed Benzonatate Active 0 .ROUTE .COMPLEX June 15, 2023 9:08am TAKE 1 CAPSULE BY MOUTH THREE TIMES A DAY NEEDED FOR 5 DAYS Start: 06-08-2023 End: 06-15-2023 take 100 mg by mouth three times daily Benzonatate Discontinued 100 MG PO Three times daily June 08, 2023 1:00am June 15, 2023 9:08am Start: 06-30-2022 take 1 capsule by mo [facility] three times daily as needed benzonatate (Tessalon) [...] Active 3 MG PO Every morning January 24, 2018 12:00am Start: 12-16-2016 End: 04-17-2017 take 1 tablet by mouth once daily Brexpiprazole Discontinued 1 TAB PO Daily December 26, 2016 12:47pm April 17, 2017 11:06am take 1 tablet by jocelin th once [...] Budesonide-Formoterol Discontinued 2 PUFF INHALATION Twice daily December 26, 2016 12:47pm April 17, 2017 11:06am take 2 puff(s) by in halation once [...] MG PO Twice daily January 24, 2018 6:40pm Start: 12-19-2016 End: 01-24-2018 take 6.25 mg by mouth twice daily Carvedilol Discontinued 6.25 MG PO Twice daily 60 30 December 26, 2016 12:47pm January 24, 2018 6:41pm Start: 12-16-2016 End: 12-19-2016 take 1 tablet by mouth twice daily Carvedilol Discontinued 1 TAB PO Twice daily December 16, 2016 12:00am December 19, 2016 11:10am take 1 tablet by jocelin every twelve hours Coreg 25 MG tablet Take 25 mg by mouth every 12 (twelve) hours. 0 Active cholecalciferol 0.05 mg oral capsule (20 sources) Vitamin D Start: 12-16-2016 take 1 capsule by mouth twice daily Cholecalciferol (Vitamin D3) Active 1 CAP PO Twice daily December 16, 2016 12:00am Start: 12-16-2016 take 1 capsule by mo [facility] once daily Cholecalciferol (Vitamin D3) Active 1 CAP PO Daily December 16, 2016 12:00am cloNIDine hydrochloride 0.1 mg oral tablet (20 sources) Central alpha-2 Adrenergic Agonist Start: 10-21-2021 take 1 tablet by mouth twice daily cloNIDine HCl 0.1 MG 1 tablet Orally twice daily for 90 day(s) Oct, Active Comp.Stocking,Thigh, Long,Large (4 sources) Start: 05-27-2023 Comp.Stocking, Thig h,Long,Large Active 0 .Route 2 May 27, 2023 5:01pm 20-30 COMPRESSION ,WEAR DAILY, 30 DAYS Start: 05-27-2023 Comp.Stocking, Thigh,Long,Large Active 0 .Route 2 May 27, 2023 1:00am As directed Start: 05-27-2023 End: 05-27-2023 Comp.Stocking,Thigh,Long,Lar ge Discontinued 0 .Route 2 May 27, 2023 1:00am May 27, 2023 5:01pm WEAR DAILY, 30 DAYS Start: 05-27-2023 Comp.Stocking, Thigh,Long,Large Active 0 .Route 2 May 27, 2023 12:00am As directed cyclobenzaprine hydrochloride 10 mg oral tablet (20 sources) Muscle Relaxant Start: 07-29-2021 End: 08-16-2021 take 10 mg by mouth at bedtime Cyclobenzaprine Active 10 MG PO Bedtime August 16, 2021 12:00am dapagliflozin 5 mg oral tablet (20 sources) Sodium-Glucose Cotransporter 2 Inhibitor Start: 08-14-2022 take 1 tablet by mouth once daily in the morning Dapagliflozin Propanediol (Farxiga) 5 mg tablet Active 5 MG PO Every morning December 05, 2022 12:00am Start: 07-29-2021 End: 08-16-2021 take 1 tablet by mouth once daily Dapagliflozin Propanediol (Farxiga) 5 mg Tablet Discontinued 5 MG PO Daily July 29, 2021 12:00am August 16, 2021 10:22am diclofenac sodium 0.01 mg/mg topical gel (2 sources) Nonsteroidal Anti-inflammatory Drug Start: 03-23-2023 End: 05-21-2023 diclofenac sodium 1 % gel Indications: Diabetes mellitus due to underlying condition with diabetic polyneuropathy, with long-term current use of insulin ([facility]) APPLY 4 GRAMS TO AFFECTED AREA 4 [...] 20 MG PO Four times daily July 29, 2021 12:00am DULoxetine 60 mg delayed release oral capsule (20 sources) Serotonin and Norepinephrine Reuptake Inhibitor Start: 06-24-2022 take 1 capsule by mouth in the morning DULoxetine (Cymbalta) [address] capsule Take 60 mg by mouth in the morning. 0 06/24/2022 Active Start: 08-16-2021 End: 05-27-2023 take 60 mg by mouth once daily in the morning Duloxetine Discontinued 60 MG PO Every morning August 16, 2021 12:00am May 27, 2023 10:08am Start: 01-24-2018 End: 04-18-2022 take 3 capsules by mouth once daily Duloxetine (Cymbalta) 20 mg Capsule,Delayed Release(Dr/Ec) Discontinued 60 MG PO Daily January 24, 2018 12:00am July 29, 2021 3:58pm ferrous sulfate 325 mg oral tablet (20 [...] 325 MG PO Daily October 23, 2021 1:32pm July 30, 2022 3:01pm Start: 12-16-2016 End: 01-24-2018 take 1 tablet by mouth once daily Ferrous Sulfate Discontinued 1 TAB PO Daily December 26, 2016 12:47pm January 24, 2018 6:40pm fluticasone propionate 0.05 mg/actuat metered dose nasal spray (20 sources) Corticosteroid Start: 12-05-2022 take 1 spray(s) nasal route once daily fluticasone (Flonase) 50 MCG/ACT nasal spray Indications: Chronic obstructive pulmonary disease, unspecified (CMS/HCC) USE 1 SPRAY INTO EACH NOSTRIL EVERY DAY FOR 30 DAYS 16 mL 0 12/05/2022 Active Start: 01-24-2018 End: 07-29-2021 Fluticasone Propionate (Flon ase) 50 mcg/actuation [place],Suspension Active 1 SPRAY INTRANASAL Daily July 29, 2021 12:00am Start: 12-16-2016 End: 04-17-2017 Fluticasone Propionate (Flon ase Allergy Relief) 50 mcg/actuation [place],Suspension Discontinued 1 SPRAY INTRANASAL Daily December 26, 2016 12:47pm April 17, 2017 11:04am take 1 spray(s) nasa l route once daily as needed FreeStyle Alfredo 14 Day Reade r - (20 sources) Start: 02-12-2022 Start: 02-12-2022 FreeStyle Libr e 14 Day [place] - as directed every 14 days Feb, Active FreeStyle Alfredo 14 Day Senso r - (20 sources) Start: 02-12-2022 Start: 02-12-2022 FreeStyle Libr e 14 Day Sensor - as directed every 14 days for 28 days Feb, Active FreeStyle Alfredo 2 [place] - (20 sources) Start: 02-19-2022 FreeStyle Libr e 2 [place] - as directed Feb, Active FreeStyle Alfredo 2 [place] - as directed Active FreeStyle Alfredo 2 [...] 40 MG PO Daily April 28, 2023 1:00am Start: 12-27-2013 take 1.5 tablets by mouth every twenty-four hours Lasix 40 MG 1.5 tablet Orally Once a day for 30 day(s) Dec, Active Start: 12-27-2013 End: 08-16-2021 take 3 tablets by mouth once daily Furosemide Discontinued 3 TAB PO Daily July 29, 2021 11:13am August 16, 2021 10:33am Start: 12-27-2013 End: 09-26-2021 take 1 tablet by mouth once daily Furosemide (Lasix) 4 0 mg Tablet Discontinued 40 MG PO Daily August 16, 2021 12:00am September 26, 2021 9:14am gabapentin 300 mg oral capsule (20 sources) [...] Active 600 MG PO Twice daily August 16, 2021 12:00am Start: 08-16-2021 take 300 mg by mouth [...] PO Three times daily April 17, 2017 11:10am July 30, 2022 2:59pm 12 hr guaiFENesin 600 mg extended release [...] 10 MG PO Three times daily July 29, 2021 12:00am 3 ml insulin glargine 100 unt/ml pen injector (20 sources) Insulin Analog Start: 02-01-2023 Lantus SoloStar 100 UNIT/ML pen INJECT 25 UNITS SUBCUTANEOUSLY DAILY 0 02/01/2023 Active Start: 12-05-2022 End: 12-05-2022 Insulin Glargine (Lantus Meri ostar U-100 Insulin) 100 unit/mL (3 mL) insulin pen Discontinued 30 UNIT SUBCUT 3x/Day before meals December 05, 2022 12:00am December 05, 2022 1:39pm If Blood sugar is greater than 140 takes 2 more units-per patient Start: 08-16-2021 Insulin Glargi ne (Basaglar Kwikpen U-100 Insulin) 100 unit/mL (3 mL) Insulin Pen Active 40 UNIT SUBCUT Daily at bedtime August 16, 2021 12:00am Start: 08-16-2021 Insulin Glargi ne (Basaglar Kwikpen [...] injector (1 source) Insulin Analog Start: 03-20-2023 Lyumjekathy KwikPe n 100 UNIT/ML pen PLEASE SEE ATTACHED FOR DETAILED DIRECTIONS 0 03/20/2023 Active Insulin Lispro-Aabc (Lyumjev Kwikpen U-100 Insulin) 100 unit/mL insulin pen (8 sources) Start: 12-05-2022 Insulin Lispro -Aabc (Lyumjev [...] Active 120 MG PO Every morning July 29, 2021 12:00am Start: 01-24-2018 End: 07-29-2021 take 1 capsule by mouth once daily Levomilnacipran (Fetzima) 80 mg Capsule,Extended Release 24 Hr Discontinued 80 MG PO Daily January 24, 2018 12:00am July 29, 2021 3:57pm levothyroxine sodium 0.075 mg oral tablet (20 sources) l-Thyroxine Start: 01-01-2022 take 1 tablet by mouth once daily in the morning levothyroxine (Synthroid, Levoxyl) 75 MCG tablet TAKE 1 TABLET BY MOUTH EVERY DAY IN THE MORNING ON EMPTY STOMACH 0 01/01/2022 Active Start: 07-29-2021 take 50 ug by mouth once daily in the morning Levothyroxine Active 50 MCG PO Every morning July 29, 2021 12:00am take 1 tablet by jocelin th once [...] Oxide Active 400 MG PO Daily January 24, 2018 12:00am Start: 12-16-2016 End: 04-17-2017 take 1 tablet by mouth once daily Magnesium Oxide Discontinued 1 TAB PO Daily 60 December 26, 2016 12:47pm April 17, 2017 11:02am methylPREDNISolone 4 mg oral tablet (2 sources) [...] Active 40 MG PO Every morning January 24, 2018 12:00am Start: 12-16-2016 End: 04-17-2017 take 1 capsule by mouth once daily Omeprazole Discontinued 1 CAP PO Daily December 26, 2016 12:47pm April 17, 2017 11:00am 24 hr oxybutynin chloride 10 mg extended release oral tablet (20 sources) Cholinergic Muscarinic Antagonist Start: 01-24-2018 take 10 mg by mouth once daily in the morning Oxybutynin Chloride Active 10 MG PO Every morning January 24, 2018 12:00am Start: 12-16-2016 End: 04-17-2017 take 1 tablet by mouth once daily Oxybutynin Chloride Discontinued 1 TAB PO Daily December 26, 2016 12:47pm April 17, 2017 11:00am Oxygen 4-6 liters (20 sources) Oxygen 4-6 [...] 1 GM PO Three times daily July 29, 2021 12:00am Start: 07-29-2021 [...] Active triamcinolone acetonide 0.001 mg/mg topical ointment (4 sources) Corticosteroid Start: 04-28-2023 Triamcinolone Acetonide Active 1 APPLIC TOPICAL Twice daily April 28, 2023 1:00am apply to lower legs as discussed Vitamin [...] Active 25 MG PO Twice daily July 29, 2021 12:00am Start: 07-29-2021 take 50 mg by mouth twice erlinda y Zonisamide Active 50 MG PO Twice daily July 29, 2021 12:00am take 2 capsules by m outh every twelve hours take 2 capsules by m outh every twelve hours Completed/Discontinued Medications Medication Drug Class(es) Dates Sig (Normalized) Sig (Original) allopurinol 300 mg oral tablet (17 sources) Xanthine Oxidase Inhibitor Start: 01-24-2018 End: 07-29-2021 take 300 mg by mouth once daily Allopurinol Discontinued 300 MG PO Daily January 24, 2018 12:00am July 29, 2021 11:13am Asenapine Maleate (Saphris (Black Simon)) 5 mg Tablet, Sublingual (17 sources) Start: 01-24-2018 End: 08-16-2021 take 1 [...] Asenapine Maleate (Saphris) 5 mg Tablet, Sublingual (17 sources) Start: 08-16-2021 End: 09-26-2021 take 1 [...] Aspirin Discontinued 81 MG PO Daily December 19, 2016 12:00am December 26, 2016 12:47pm atorvastatin 40 mg oral tablet (20 sources) HMG-CoA Reductase Inhibitor Start: 12-19-2016 End: 04-17-2017 take 40 mg by mouth once daily in the evening Atorvastatin Discontinued 40 MG PO Every evening December 26, 2016 12:47pm April 17, 2017 11:08am celecoxib 200 mg oral capsule (20 sources) Nonsteroidal Anti-inflammatory Drug Start: 08-16-2021 End: 09-26-2021 take 200 mg by mouth twice daily Celecoxib Discontinued 200 MG PO Twice daily August 16, 2021 12:00am September 26, 2021 9:13am take 1 capsule by [facility] every twelve hours Celecoxib 200 MG 1 capsule with food Orally Twice a day Active clobetasol propionate 0.0005 mg/mg topical ointment (17 sources) Corticosteroid Start: 07-29-2021 End: 07-30-2022 Clobetasol Discontinued 1 APPLIC TOPICAL Daily 30 July 29, 2021 12:00am July 30, 2022 3:01pm colestipol hydrochloride 1000 mg oral tablet (20 sources) Bile Acid Sequestrant Start: 07-29-2021 End: 07-30-2022 take 2 g by mouth once daily Colestipol Discontinued 2 GM PO Daily July 29, 2021 12:00am July 30, 2022 3:01pm Start: 10-04-2019 take 2 tablets by mouth every twenty-four hours Start: 10-04-2019 take 2 tablets by mouth every twenty-four hours Start: 10-04-2019 take 2 tablets by mouth every twenty-four hours diazePAM 10 mg oral tablet (20 sources) Benzodiazepine Start: 12-16-2016 End: 04-17-2017 take 1 tablet by mouth once daily Diazepam Discontinued 1 TAB PO Daily December 26, 2016 12:47pm April 17, 2017 11:05am eluxadoline 100 mg oral tablet (20 sources) mu-Opioid Receptor Agonist Start: 12-16-2016 End: 07-29-2021 take 1 tablet by mouth twice daily Eluxadoline (Viberzi) 100 mg Tablet Discontinued 1 TAB PO Twice daily April 17, 2017 1:00am July 29, 2021 11:11am 0.3 ml enoxaparin sodium 100 mg/ml prefilled syringe (17 sources) Low Molecular Weight Heparin Start: 12-19-2016 End: 12-26-2016 Enoxaparin (Lovenox) 30 mg/0.3 mL Syringe Discontinued 30 MG SUBCUT Q12H 60 December 19, 2016 12:00am December 26, 2016 12:20pm estrogens, conjugated (group home) 0.3 mg oral tablet (17 sources) Estrogen Start: 01-24-2018 End: 07-29-2021 take 1 tablet by mouth once daily Conjugated Estrogens (Premarin) 0.3 mg Tablet Discontinued 0.3 MG PO Daily January 24, 2018 12:00am July 29, 2021 11:11am Fluticasone Propion-Salmetero l (20 sources) Corticosteroid, beta2-Adrenergic [...] insulin aspart, human 100 unt/ml pen injector (17 sources) Insulin Analog Start: 12-19-2016 End: 04-17-2017 Insulin Aspart U-100 (Novolog Flexpen U-100 Insulin) 100 unit/mL Insulin Pen Discontinued 0 UNITS SUBCUT 3X/Day with meals and bedtime 60 December 19, 2016 12:00am April 17, 2017 11:02am ipratropium bromide 0.021 mg/actuat metered dose nasal spray (20 sources) Anticholinergic Start: 12-16-2016 End: 04-17-2017 Ipratropium [place] Discontinued 2 SPRAY INTRANASAL Twice daily December 26, 2016 12:47pm April 17, 2017 11:02am metFORMIN hydrochloride 850 mg oral tablet (20 sources) Biguanide Start: 07-29-2021 End: 12-05-2022 take 850 mg by mouth once daily Metformin Discontinued 850 MG PO Daily July 29, 2021 12:00am December 05, 2022 1:40pm Start: 04-17-2017 End: 01-24-2018 take 500 mg by mouth twice daily Metformin Discontinued 500 MG PO Twice daily April 17, 2017 1:00am January 24, 2018 6:41pm metFORMIN hydrochloride 850 mg / pioglitazone 15 mg oral tablet (20 sources) Biguanide, Peroxisome Proliferator Receptor alpha Agonist, Peroxisome Proliferator Receptor gamma Agonist, Thiazolidinedione Start: 12-16-2016 End: 12-26-2016 take 1 tablet by mouth once daily at breakfast Pioglitazone-Metformin Discontinued 1 TAB PO Daily with breakfast December 16, 2016 12:00am December 26, 2016 12:42pm take 1 tablet by mouth every twe lve hours take 1 tablet by mouth every twe lve hours mirtazapine 30 mg oral tablet (20 sources) Start: 07-29-2021 End: 09-26-2021 take 1 tablet by mouth once daily Mirtazapine (Remeron) 30 mg Tablet Discontinued 30 MG PO Daily August 16, 2021 12:00am September 26, 2021 9:17am Start: 12-16-2016 End: 04-17-2017 take 1 tablet by mouth at bedtime Mirtazapine Discontinued 1 TAB PO Bedtime December 26, 2016 12:47pm April 17, 2017 11:02am montelukast 10 mg oral tablet (20 sources) Leukotriene Receptor Antagonist Start: 12-16-2016 End: 10-05-2017 take 1 tablet by mouth once daily Montelukast Discontinued 1 TAB PO Daily December 26, 2016 12:47pm October 05, 2017 2:52pm nabumetone 750 mg oral tablet (20 sources) Nonsteroidal Anti-inflammatory Drug Start: 01-24-2018 End: 07-29-2021 take 750 mg by mouth twice daily Nabumetone Discontinued 750 MG PO Twice daily January 24, 2018 12:00am July 29, 2021 11:12am Start: 12-16-2016 End: 04-17-2017 take 1 tablet by mouth twice daily Nabumetone Discontinued 1 TAB PO Twice daily December 26, 2016 12:47pm April 17, 2017 11:01am nortriptyline 10 mg oral capsule (20 sources) Tricyclic Antidepressant Start: 01-24-2018 End: 07-29-2021 take 10 mg by mouth once daily at bedtime Nortriptyline Discontinued 10 MG PO Daily at bedtime January 24, 2018 12:00am July 29, 2021 11:12am Start: 12-16-2016 End: 04-17-2017 take 1 capsule by mouth once daily Nortriptyline Discontinued 1 CAP PO Daily December 26, 2016 12:47pm April 17, 2017 11:00am pioglitazone 15 mg oral tablet (20 sources) Peroxisome Proliferator Receptor alpha Agonist, Peroxisome Proliferator Receptor gamma Agonist, Thiazolidinedione Start: 01-24-2018 End: 07-29-2021 take 15 mg by mouth twice daily Pioglitazone Discontinued 15 MG PO Twice daily January 24, 2018 6:45pm July 29, 2021 11:12am Start: 12-26-2016 End: 01-24-2018 take 15 mg by mouth once daily at breakfast Pioglitazone Discontinued 15 MG PO Daily with breakfast December 26, 2016 12:00am January 24, 2018 6:45pm 24 hr QUEtiapine 300 mg extended release oral tablet (20 sources) Atypical Antipsychotic Start: 12-16-2016 End: 04-17-2017 take 1 tablet by mouth at bedtime Quetiapine Discontinued 1 TAB PO Bedtime December 26, 2016 12:47pm April 17, 2017 10:59am 0.25 mg, 0.5 mg dose 1.5 ml semaglutide 1.34 mg/ml pen injector (20 sources) Start: 07-29-2021 End: 08-16-2021 Semaglutide (Ozempic) 0.25 mg or 0.5 mg(2 mg/1.5 mL) Pen Injector Discontinued 0.5 MG SUBCUT every week July 29, 2021 12:00am August 16, 2021 10:25am Start: 05-23-2021 Ozempic (0.25 or 0.5 MG/DOSE) 2 MG/1.5ML 0.25 mg weekly for 4 weeks then increase to 0.5 mg weekly Subcutaneous weekly for 30 days May, Active theophylline 5.33 mg/ml oral solution (20 sources) Methylxanthine Start: 08-16-2021 End: 12-05-2022 take 200 mg by mouth once daily Theophylline (Nishant) 80 mg/15 mL Elixir Discontinued 200 MG PO Daily August 16, 2021 12:00am December 05, 2022 1:43pm Start: 07-13-2013 End: 07-12-2023 take 1 capsule by mouth once daily Theophylline Discontinued 1 CAP PO Daily 30 December 26, 2016 12:47pm April 17, 2017 10:59am tiZANidine 4 mg oral tablet (20 sources) Central alpha-2 Adrenergic Agonist Start: 07-29-2021 End: 09-26-2021 take 0.5 tablet by mouth twice daily in the morning, then take 2 tablets by mouth at bedtime Tizanidine (Zanaflex) 4 mg Tablet Discontinued 4 MG PO Twice daily July 29, 2021 12:00am September 26, 2021 9:19am half tab in AM and 2 at HS Start: 01-24-2018 End: 07-29-2021 take 1 capsule by mouth twice daily Tizanidine (Zanaflex) 4 mg Capsule Discontinued 4 MG PO Twice daily January 24, 2018 12:00am July 29, 2021 11:11am Start: 12-16-2016 End: 04-17-2017 take 1 tablet by mouth twice daily Tizanidine Discontinued 1 TAB PO Twice daily 60 December 26, 2016 12:47pm April 17, 2017 10:58am take 1 tablet by jocelin th in the evening tiZANidine (Zanaflex) 4 MG tablet Take 4 mg by mouth in the evening. 0 Active 24 hr venlafaxine 150 mg extended release oral capsule (20 sources) Serotonin and Norepinephrine Reuptake Inhibitor Start: 12-16-2016 End: 04-17-2017 take 2 capsules by mouth once daily Venlafaxine Discontinued 2 CAP PO Daily 60 December 26, 2016 12:47pm April 17, 2017 10:50am vortioxetine 20 mg oral tablet (20 sources) Start: 01-24-2018 End: 07-29-2021 take 1 tablet by mouth once daily Vortioxetine (Trintellix) 20 mg Tablet Discontinued 20 MG PO Daily January 24, 2018 12:00am July 29, 2021 11:11am Start: 12-16-2016 End: 04-17-2017 take 1 tablet by mouth once daily Vortioxetine (Trintellix) 20 mg Tablet Discontinued 20 MG PO Daily December 26, 2016 12:47pm April 17, 2017 10:51am zolpidem tartrate 6.25 mg extended release oral tablet (20 sources) gamma-Aminobutyric Acid-ergic Agonist Start: 07-29-2021 End: 08-16-2021 take 1 tablet by mouth once daily at bedtime Zolpidem (Ambien Cr) 6.25 mg Tablet,Ext Release Multiphase Discontinued 6.25 MG PO Daily at bedtime July 29, 2021 12:00am August 16, 2021 10:26am Start: 04-17-2017 End: 10-05-2017 take 1 tablet by mouth once daily at bedtime Zolpidem (Ambien) 5 mg Tablet Discontinued 1 TAB PO Daily at bedtime April 17, 2017 1:00am October 05, 2017 2:58pm Start: 12-16-2016 End: 04-17-2017 take 1 tablet by mouth at bedtime Zolpidem Discontinued 1 TAB PO Bedtime December 26, 2016 12:47pm April 17, 2017 10:58am Problems Active Problems Problem Classification Problem Date Documented Da te Episodic/Chronic Abdominal pain (20 sources) Abdominal pain; Translations: [Unspecified abdominal pain] 08-16-2021 Episodic Acute and unspecified renal failure (17 sources) Injury of kidney; Translations: [Acute kidney failure, unspecified] 08-16-2021 Episodic Blindness and vision defects (17 sources) Visual hallucinations; Translations: [Visual hallucinations] 01-23-2017 Episodic Cataract (1 source) Unspecified cataract; Translations: [Unspecified cataract] Onset: Chronic Chronic kidney disease (20 sources) Chronic [...] Resolved: 2 Chronic Deficiency and other anemia (17 sources) Iron deficiency anemia; Translations: [Iron deficiency [...] [Chronic fatigue, unspecified] Chronic Malaise and fatigue (20 sources) Asthenia; Translations: [Other malaise] 08-16-2021 Episodic Mood disorders (20 sources) Major depression with psychotic features; Translations: [Major depressive disorder, single episode, severe with psychotic features] 08-16-2021 Chronic Neoplasms of unspecified nature or uncertain behavior (20 sources) Neuropathy; Translations: [Monoclonal gammopathy] Onset: 3 08-16-2021 Chronic Other aftercare (20 sources) Long-term current use of insulin; Translations: [long term care social worker (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] Episodic Other aftercare (4 sources) Other keno terminal operator (current) drug therapy Onset: 2 Resolved: 2 Episodic Other connective tissue disease (17 sources) Rhabdomyolysis; Translations: [Rhabdomyolysis] 08-16-2021 Episodic Other [...] Episodic Other diseases of veins and lymphatics (10 sources) Venous insufficiency (chronic) (peripheral); Translations: [Varicose [...] diseases of veins and lymphatics (2 sources) Disorder of vein of lower extremity; Translations: [Venous insufficiency (chronic) (peripheral)] 08-16-2021 Episodic Other diseases of veins and lymphatics (2 sources) Vascular insufficiency; Translations: [Venous insufficiency (chronic) (peripheral)] 05-12-2023 Episodic Other gastrointestinal disorders (4 sources) Irritable bowel syndrome; Translations: [Irritable bowel syndrome without diarrhea] 04-28-2023 Chronic Other gastrointestinal disorders (4 sources) Irritable bowel syndrome without diarrhea; Translations: [Irritable bowel syndrome] 04-28-2023 Chronic Other gastrointestinal disorders (17 sources) Diarrhea; Translations: [Diarrhea, unspecified] 08-16-2021 Episodic [...] Resolved: 2 Chronic Other nervous system disorders (17 sources) Metabolic encephalopathy; Translations: [Metabolic encephalopathy] 08-16-2021 Chronic Other nervous system disorders (1 source) Polyneuropathy, unspecified Chronic Other nervous system disorders (20 sources) Abnormal gait; Translations: [Unsteadiness on feet] Episodic Other nervous system disorders (2 sources) Unsteadiness on feet Episodic Other nutritional; endocrine; and metabolic disorders (20 sources) Morbid obesity; Translations: [Morbid (severe) obesity due to excess calories] 08-16-2021 Chronic Other nutritional; endocrine; and metabolic disorders (17 sources) Hypomagnesemia; Translations: [Hypomagnesemia] 08-16-2021 Chronic Other nutritional; endocrine; and metabolic disorders (15 sources) Morbid (severe) obesity due to excess calories; Translations: [Morbid obesity] 10-23-2021 Chronic Other screening for suspected conditions (not mental disorders or infectious disease) (9 sources) Encounter for screening mammogram for malignant neoplasm of breast; Translations: [Encounter for other screening for malignant neoplasm of breast] Onset: 1 Resolved: 1 Episodic Other skin disorders (17 sources) Hemosiderin pigmentation of skin; Translations: [Other specified disorders of pigmentation] 08-16-2021 Episodic Peripheral and visceral atherosclerosis (11 sources) Peripheral vascular disease; Translations: [Peripheral vascular disease, unspecified] Onset: 3 Chronic Residual codes; unclassified (20 sources) Obstructive sleep apnea syndrome; Translations: [Obstructive sleep apnea (adult) (pediatric)] Onset: 1 08-16-2021 Chronic Residual codes; unclassified (5 sources) Obstructive sleep apnea (adult) (pediatric); Translations: [Obstructive sleep apnea (adult)(pediatric)] Onset: 2 Resolved: 2 Chronic Residual codes; unclassified (17 sources) Peripheral edema; Translations: [Edema, unspecified] 08-16-2021 Episodic Residual codes; unclassified (4 sources) Localized edema; Translations: [Edema] 04-28-2023 Episodic Respiratory failure; insufficiency; arrest (adult) (20 sources) Chronic hypercapnic respiratory failure; Translations: [Chronic respiratory failure with hypercapnia] 08-16-2021 Chronic Spondylosis; intervertebral disc disorders; other back problems (20 sources) Degeneration of lumbar intervertebral disc; Translations: [Other intervertebral disc degeneration, lumbar region] Onset: 2 Resolved: 2 Chronic Thyroid disorders (20 sources) Acquired hypothyroidism; Translations: [Hypothyroidism, unspecified] Onset: 1 Resolved: 1 Chronic Unclassified (4 sources) LOW BACK PAIN, UNSPECIFIED; Translations: [LOW BACK PAIN, UNSPECIFIED] Onset: 3 Unclassified (8 sources) Inflammatory disorder; Translations: [Inflammation] 04-28-2023 Unclassified [...] bilateral lower extremities with pain] Onset: 3 Urinary tract infections (18 sources) Urinary tract infectious disease; Translations: [Urinary [...] Resolved: 12-23-2021 Episodic Other aftercare (1 source) long term care social worker (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 Onset: 04-02-2021 Resolved: 04-02-2021 Episodic Other non-traumatic joint disorders (3 sources) Pain in left hip; Translations: [Pain in left hip] Onset: 03-04-2023 Episodic Other skin disorders (1 source) Localized swelling, mass and lump, lower limb, bilateral Onset: 03-04-2021 Resolved: 03-04-2021 Episodic Other skin disorders (2 sources) Generalized hyperhidrosis Onset: 05-23-2021 Resolved: 06-20-2021 Episodic Residual codes; unclassified (1 source) Edema, unspecified Onset: 06-20-2021 Resolved: 06-20-2021 Episodic Spondylosis; intervertebral disc disorders; other back problems (20 sources) Radiculopathy, lumbar region; Translations: [Sciatica] Onset: 08-22-2021 Resolved: 08-22-2021 Episodic Unclassified (2 sources) Unspecified vitamin D deficiency 268.9 Onset: 05-15-2021 Resolved: 05-15-2021 Unclassified (1 source) Low back pain, unspecified M54.50 Onset: 08-07-2021 Resolved: 08-07-2021 Unclassified (1 source) Cough R05.9 Unclassified (1 source) LOW BACK PAIN, UNSPECIFIED; Translations: [LOW BACK PAIN, UNSPECIFIED] Onset: 07-03-2022 Results Test Name Value Interpretation Reference Range Facility US venous duplex LE BIon US venous duplex LE [facility] Main [address] [address] Ultrasound Report Signed Patient: Doreen Turcios MR#: [id number] 58 : 1960 Acct:[id number] Age/Sex: 62 / F ADM Date: 05/08/23 Loc: Room: Type: DEP CLI Attending Dr: Erica Diehl APRN Ordering Provider: Erica Diehl APRN Date of Service: 05/08/23 US/US venous duplex LE BI: BLE ULCERS BLE VARICOSE VEINS BLE EDEMA Copies to: Erica Diehl APRN BILATERAL LOWER EXTREMITY VENOUS DUPLEX [...] Cresencio Chappell MD05/09/2023 3:57 PM [facility] Tech: Elsie De La Torre Transcribed By: RACHEL 05/09/23 155 Dictated By: Cresencio Chappell MD 05/09/23 155 Signed By: 05/09/23 1557 [facility] US arterial pvr rest [place] US arterial pvr rest LE [facility] [place] [address] Ultrasound Report Signed Patient: Doreen Turcios MR#: [id number] 58 : 1960 Acct:[id number] Age/Sex: 62 / F ADM Date: 02/19/23 Loc: Room: Type: DEP CLI Attending Dr: Peri Tyson DO Ordering [...] Domenico Whitmore M.D.02/20/2023 10:32 AM Dictation Location: [place] [address] Tech: Liyah Stuartdana Transcribed By: RACHEL 02/20/23 1032 Dictated By: Domenico Whitmore MD 02/20/23 1031 Signed By: 02/20/23 1032 Normal [facility] Activated partial thrombopla stin time (aPTT) in platelet poor plasma by coagulation aOrdered By: Roxane Bills on 02-12-2023 aPTT Coag (PPP) [Time] 23.4 s 25.1-36.5 [facility] Comment on above: A hematocrit value g reater than 55% may lead to inaccurate results in coagulation testing. Patients having hematocrit values >55% require a special collection tube for coagulation studies. Please contact the laboratory at [phone] for redraw instructions. Basophils Auto (Bld) [#/Vol] Ordered By: Roxane Bills on 02-12-2023 Basophils (Bld) [#/Vol] 0.1 10*3/uL 0.0-0.2 [facility] Basophils/100 WBC Auto (Bld) Ordered By: Roxane Bills on 02-12-2023 Basophils/100 WBC (Bld) 1.3 % . [facility] CT guided needle placementon 02-12-2023 CT guided needle placement 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 CT GUIDED [...] local anesthesia. Utilizing CT guidance, an 11-gauge [employer] biopsy needle was advanced into the right [...] Mccurdy Jr., D.O.02/12/2023 11:44 AM Dictation Location: [place] [address] Transcribed By: [facility] 02/12/23 1144 Dictated By: Manish Mccurdy Jr, DO 02/12/23 1137 Signed By: 02/12/23 1144 [facility] Coagulation Profileon 2022 aPTT Coag (Bld) [Time] 23.4 s Low 25.1-36.5 [facility] Comment on above: Order Comment: Stat for bx Result Comment: A he matocrit value greater than 55% may lead to inaccurate results in coagulation testing. Patients having hematocrit values >55% require a special collection tube for coagulation studies. Please contact the laboratory at [phone] for redraw instructions. PERFORMED BY: [address] [place] [address] PATHOLOGIST COLLEGE ASSOCIATE AQUILINO JACK M.D. Performed By: #### P P, CBC #### [address] INR Coag (PPP) [Relative time] 1.0 {INR} Normal [facility] Comment on above: Order Comment: Stat [...] 4.5 Performed By: #### P P, CBC #### [address] PT Coag (PPP) [Time] 12.4 s Normal 9.0-12.9 [facility] Comment on above: Order Comment: Stat for bx Result Comment: A he matocrit value greater than 55% may lead to inaccurate results in coagulation testing. Patients having hematocrit values >55% require a special collection tube for coagulation studies. Please contact the laboratory at [phone] for redraw instructions. Performed By: #### P P, CBC #### [address] Complete Blood Count Auto Di ffon 02-12-2023 Basophils (Bld) [#/Vol] 0.1 10*3/uL Normal 0.0-0.2 [facility] Comment on above: Order Comment: Stat for bx Result Comment: PERF ORMED BY: [place] [address] PATHOLOGIST COLLEGE ASSOCIATE AQUILINO JACK M.D. Performed By: #### P P, CBC #### [address] Basophils/100 WBC (Bld) 1.3 % Normal . [facility] Comment on above: Order Comment: Stat for bx Performed By: #### P P, CBC #### [address] Eosinophils (Bld) [#/Vol] 0.9 10*3/uL High 0.0-0.45 [facility] Comment on above: Order Comment: Stat for bx Performed By: #### P P, CBC #### [address] Eosinophils/100 WBC (Bld) 7.7 % Normal . [facility] Comment on above: Order Comment: Stat for bx Performed By: #### P P, CBC #### [address] Erythrocyte distribution width (RBC) [Ratio] 14.1 % Normal 11.9-15.3 [facility] Comment on above: Order Comment: Stat for bx Performed By: #### P P, CBC #### [address] Hematocrit (Bld) [Volume fraction] 38.9 % Normal 34.0-46.4 [facility] Comment on above: Order Comment: Stat for bx Performed By: #### P P, CBC #### [address] Hemoglobin (Bld) [Mass/Vol] 12.8 g/dL Normal 11.8-15.4 [facility] Comment on above: Order Comment: Stat for bx Performed By: #### P P, CBC #### [address] Lymphocytes (Bld) [#/Vol] 2.8 10*3/uL Normal 1.00-4.8 [facility] Comment on above: Order Comment: Stat for bx Performed By: #### P P, CBC #### [address] Lymphocytes/100 WBC (Bld) 24.2 % Normal . [facility] Comment on above: Order Comment: Stat for bx Performed By: #### P P, CBC #### [address] MCH (RBC) [Entitic mass] 30.0 pg Normal 24.7-34.3 [facility] Comment on above: Order Comment: Stat for bx Performed By: #### P P, CBC #### [address] MCV (RBC) [Entitic vol] 91.2 fL Normal 80-100 [facility] Comment on above: Order Comment: Stat for bx Performed By: #### P P, CBC #### [address] Mean Corpuscular HGB Conc 32.9 g/dL Normal 32.0-35.0 [facility] Comment on above: Order Comment: Stat for bx Performed By: #### P P, CBC #### [address] Monocytes (Bld) [#/Vol] 1.0 10*3/uL High 0.0-0.8 [facility] Comment on above: Order Comment: Stat for bx Performed By: #### P P, CBC #### [place] [address] [place] Monocytes/100 WBC (Bld) 9.0 % Normal . [facility] Comment on above: Order Comment: Stat for bx Performed By: #### P P, CBC #### [place] [address] [place] Neutrophils (Bld) [#/Vol] 6.8 10*3/uL Normal 1.8-7.7 [facility] Comment on above: Order Comment: Stat for bx Performed By: #### P P, CBC #### [place] [address] [place] Neutrophils/100 WBC (Bld) 57.8 % Normal . [facility] Comment on above: Order Comment: Stat for bx Performed By: #### P P, CBC #### [place] [address] [place] NRBC% 0.1 /100{WBC} Normal 0-0.5 [facility] Comment on above: Order Comment: Stat for bx Performed By: #### P P, CBC #### [facility] [address] [place] [address] Platelet mean volume (Bld) [Entitic vol] 7.0 fL Normal 6.3-10.7 [facility] Comment on above: Order Comment: Stat for bx Performed By: #### P P, CBC #### [facility] [address] [place] [address] Platelets (Bld) [#/Vol] 334 10*3/uL Normal 150-450 [facility] Comment on above: Order Comment: Stat for bx Performed By: #### P P, CBC #### [address] RBC (Bld) [#/Vol] 4.27 10*6/uL Normal 3.60-5.00 [facility] Comment on above: Order Comment: Stat for bx Performed By: #### P P, CBC #### [address] WBC (Bld) [#/Vol] 11.7 10*3/uL High 3.8-11.6 [facility] Comment on above: Order Comment: Stat for bx Performed By: #### P P, CBC #### [address] Eosinophils Auto (Bld) [#/Vo l]Ordered By: Roxane Bills on 02-12-2023 Eosinophils (Bld) [#/Vol] 0.9 10*3/uL 0.0-0.45 [facility] Eosinophils/100 WBC Auto (Bl d)Ordered By: Roxane Bills on 02-12-2023 Eosinophils/100 WBC (Bld) 7.7 % . [facility] Erythrocyte distribution wid th Auto (RBC) [Ratio]Ordered By: Roxane Bills on 02-12-2023 Erythrocyte distribution width (RBC) [Ratio] 14.1 % 11.9-15.3 [facility] Hematocrit Auto (Bld) [Volum e fraction]Ordered By: Roxane Bills on 02-12-2023 Hematocrit (Bld) [Volume fraction] 38.9 % 34.0-46.4 [facility] Hemoglobin [Mass/volume] in BloodOrdered By: Roxane Bills on 02-12-2023 Hemoglobin (Bld) [Mass/Vol] 12.8 g/dL 11.8-15.4 [facility] INR in Platelet poor plasma by Coagulation assayOrdered By: Roxane Bills on 02-12-2023 INR Coag (PPP) [Relative time] 1.0 {INR} [facility] Comment on above: INR Therapeutic Rang [...] [id number] Received: 02/12/23 Status: JOHNNY [place] Num: [id number] Spec Type: Bone Marro Amilcar Dr: Manish [...] Age/ Patient Sex Location Account Attending Physician Doreen Turcios 62/F CT [id number] Roxane Bills MD SPEC NUM: [id number] RECD: 02/12/23 STATUS: [place] NUM: [id number] KEYSHA: 02/12/23-999 [facility] [address]: Manish Mccurdy Jr, DO ENTERED: 02/12/[address] [facility] [address]: Roxane Bills MD SPEC TYPE: Bone [...] PAS - Hemat/2, Bone Marrow TP, GIEMSA Supplemental Report Addendum 1 Entered: 02/25/23 SUPPLEMENTAL FOR CYTOGENETICS -NORMAL FEMALE KARYOTYPE: 44, XX[20] NOTE: -Normal cytogenetics study, and no change of initial diagnosis Addendum Signed (signature on file) Chacorta-Sigifredo Lemon MD 02/25/231838 Specimen: [id number] Received: 02/12/23 Status: JOHNNY [place] Num: [id number] Spec Type: Bone Marro Subm Dr: Manish Mccurdy Jr, DO Tissues: A Bone Marrow Aspirate (Clot) (RT ILIAC) B Bone Marrow Biopsy/Core (RT ILIAC) Procedures: Reticulum I, Peripheral Smr, Iron/2, HE/4, Gross/Micro L4/2, Bm Smear/2, CD138/2, CD20/2, CD3/2, CD31, CD34, CD56/2, CD68, E CADHERIN, Decalcification, IHC First AB, IHC Add AB/, PAS - Hemat/2, Bone Marrow TP, GIEMSA STN Patient: Doreen Turcios [id number] (Continued) Specimen: [id number] Received: 02/12/23 (Continued) Signed (signature on file) Jolanta Lemon MD 02/22/23 1907 Specimen: [id number] Received: 02/12/23 Status: JOHNNY [place] Num: [id number] Spec Type: Bone Marro Subm Dr: Manish Mccurdy Jr, DO Tissues: A Bone Marrow Aspirate (Clot) (RT ILIAC) B Bone Marrow Biopsy/Core (RT ILIAC) Procedures: Reticulum I, Peripheral Smr, Iron/2, HE/4, Gross/Micro L4/2, Bm Smear/2, CD138/2, CD20/2, CD3/2, CD31, CD34, CD56/2, CD68, E CADHERIN, Decalcification, IHC First AB, IHC Add AB/7, PAS - Hemat/2, Bone Marrow TP, GIEMSA STN/7 Patient: Doreen Turcios [id number] (Continued) Specimen: [id number] Received: 02/12/23 (Continued) Pathological [...] visual estimation, (more content not included)... Normal [facility] Leukocytes [#/volume] correc shan for nucleated erythrocytes in Blood by Automated counOrdered By: Roxane Bills on 02-12-2023 WBC corrected for nucl RBC Auto (Bld) [#/Vol] 11.7 10*3/uL 3.8-11.6 [facility] Lymphocytes Auto (Bld) [#/Vo l]Ordered By: Roxane Bills on 02-12-2023 Lymphocytes (Bld) [#/Vol] 2.8 10*3/uL 1.00-4.8 [facility] Lymphocytes/100 WBC Auto (Bl d)Ordered By: Roxane Bills on 02-12-2023 Lymphocytes/100 WBC (Bld) 24.2 % . [facility] MCH Auto (RBC) [Entitic mass ]Ordered By: Roxane Bills on 02-12-2023 MCH (RBC) [Entitic mass] 30.0 pg 24.7-34.3 [facility] MCHC Auto (RBC) [Mass/Vol]Or dered By: Roxane Bills on 02-12-2023 MCHC (RBC) [Mass/Vol] 32.9 g/dL 32.0-35.0 [facility] MCV Auto (RBC) [Entitic vol] Ordered By: Roxane Bills on 02-12-2023 MCV (RBC) [Entitic vol] 91.2 fL 80-100 [facility] Monocytes Auto (Bld) [#/Vol] Ordered By: Roxane Bills on 02-12-2023 Monocytes (Bld) [#/Vol] 1.0 10*3/uL 0.0-0.8 [facility] Monocytes/100 WBC Auto (Bld) Ordered By: Roxane Bills on 02-12-2023 Monocytes/100 WBC (Bld) 9.0 % . [facility] Neutrophils Auto (Bld) [#/Vo l]Ordered By: Roxane Bills on 02-12-2023 Neutrophils (Bld) [#/Vol] 6.8 10*3/uL 1.8-7.7 [facility] Neutrophils/100 WBC Auto (Bl d)Ordered By: Roxane Bills on 02-12-2023 Neutrophils/100 WBC (Bld) 57.8 % . [facility] Nucleated erythrocytes [Pres ence] in Blood by Automated countOrdered By: Roxane Bills on 02-12-2023 Nucleated RBC Auto Ql (Bld) 0.1 /100{WBC} 0-0.5 [facility] Platelet mean volume Auto (B ld) [Entitic vol]Ordered By: Roxane Bills on 02-12-2023 Platelet mean volume (Bld) [Entitic vol] 7.0 fL 6.3-10.7 [facility] Platelets Auto (Bld) [#/Vol] Ordered By: Roxane Bills on 02-12-2023 Platelets (Bld) [#/Vol] 334 10*3/uL 150-450 [facility] Prothrombin time (PT)Ordered By: Roxane Bills on 02-12-2023 PT Coag (PPP) [Time] 12.4 s 9.0-12.9 [facility] Comment on above: A hematocrit value g reater than 55% may lead to inaccurate results in coagulation testing. Patients having hematocrit values >55% require a special collection tube for coagulation studies. Please contact the laboratory at [phone] for redraw instructions. RBC Auto (Bld) [#/Vol]Ordere d By: Roxane Bills on 02-12-2023 RBC (Bld) [#/Vol] 4.27 10*6/uL 3.60-5.00 [facility] WBC Auto (Bld) [#/Vol]Ordere d By: Roxane Bills on 02-12-2023 WBC (Bld) [#/Vol] 11.7 10*3/uL 3.8-11.6 [facility] XR bone surveyon 02-06-[address] [facility] [address] XRay Report Signed Patient: Doreen Turcios MR#: [id number] 58 : 1960 Acct:[id number] Age/Sex: 62 / F ADM Date: 02/06/23 [facility]: [facility]: [facility]: Roxane Bills MD Copies [...] Domenico Brown M.D.02/06/2023 4:08 PM Dictation Location: RADIO--05 Transcribed By: RACHEL 02/06/23 1608 Dictated By: Domenico Brown DO 02/06/23 1606 Signed By: 02/06/23 1608 [facility] MR hip LT wo conon MR hip LT wo con [facility] [address] MRI Report Signed Patient: Doreen Turcios MR#: [id number] 58 : 1960 Acct:[id number] Age/Sex: 62 / F ADM Date: 02/04/23 Loc: [facility]: [facility]: Peri Tyson DO Copies to: [...] Mccurdy Jr., D.OJane02/04/2023 12:35 PM Dictation Location[facility] Transcribed By: RACHEL 02/04/23 1235 Dictated By: Manish Mccurdy Jr, DO 02/04/23 1230 Signed By: 02/04/23 123 [facility] Alanine aminotransferase [En zymatic activity/volume] in Serum or PlasmaOrdered By: Roxane Bills on 01-22-2023 ALT [Catalytic activity/Vol] 47 U/L [facility] Albumin [Mass/volume] in Ser um or Plasma by Bromocresol green (BCG) dye binding methoOrdered By: Roxane Bills on 01-22-2023 Albumin BCG dye [Mass/Vol] 3.7 g/dL 3.5-5.7 [facility] Alkaline phosphatase [Enzyma tic activity/volume] in Serum or PlasmaOrdered By: Roxane Bills on 01-22-2023 ALP [Catalytic activity/Vol] 169 U/L 34-104 [facility] Aspartate aminotransferase [ Enzymatic activity/volume] in Serum or PlasmaOrdered By: Roxane Bills on 01-22-2023 AST [Catalytic activity/Vol] 48 U/L 13-39 [facility] Basophils Auto (Bld) [#/Vol] Ordered By: Roxane Bills on 01-22-2023 Basophils (Bld) [#/Vol] 0.1 10*3/uL 0.0-0.2 [facility] Basophils/100 WBC Auto (Bld) Ordered By: Roxane Bills on 01-22-2023 Basophils/100 WBC (Bld) 0.5 % . [facility] Bilirubin.total [Mass/volume ] in Serum or PlasmaOrdered By: Roxane Bills on 01-22-2023 Bilirubin [Mass/Vol] 0.4 mg/dL 0.3-1.0 [facility] Calcium [Mass/volume] in Ser um or PlasmaOrdered By: Roxane Bills on 01-22-2023 Calcium [Mass/Vol] 8.6 mg/dL 8.6-10.3 [facility] Carbon dioxide, total [Moles /volume] in Serum or PlasmaOrdered By: Roxane Bills on 01-22-2023 CO2 [Moles/Vol] 32.1 mmol/L 21.0-31.0 [facility] Chloride [Moles/volume] in S logan or PlasmaOrdered By: Roxane Bills on 01-22-2023 Chloride [Moles/Vol] 100 mmol/L 98-107 [facility] Complete Blood Count Auto Di ffon 01-22-2023 Basophils (Bld) [#/Vol] 0.1 10*3/uL Normal 0.0-0.2 [facility] Comment on above: Result Comment: PERF ORMED BY: [place] [address] PATHOLOGIST [employer]OC[employer] AQUILINO JACK M.D. Performed By: #### P P, CBC #### [address] Basophils/100 WBC (Bld) 0.5 % Normal . [facility] Comment on above: Performed By: #### P P, CBC #### [facility] [address] Eosinophils (Bld) [#/Vol] 0.5 10*3/uL High 0.0-0.45 [facility] Comment on above: Performed By: #### P P, CBC #### [address] Eosinophils/100 WBC (Bld) 4.2 % Normal . [facility] Comment on above: Performed By: #### P P, CBC #### [facility] [address] [place] [address] Erythrocyte distribution width (RBC) [Ratio] 14.2 % Normal 11.9-15.3 [facility] Comment on above: Performed By: #### P P, CBC #### [address] Hematocrit (Bld) [Volume fraction] 37.8 % Normal 34.0-46.4 [facility] Comment on above: Performed By: #### P P, CBC #### [facility] [address] [place] [address] [place] Hemoglobin (Bld) [Mass/Vol] 12.3 g/dL Normal 11.8-15.4 [facility] Comment on above: Performed By: #### P P, CBC #### [facility] [address] [place] [address] [place] Lymphocytes (Bld) [#/Vol] 3.2 10*3/uL Normal 1.00-4.8 [facility] Comment on above: Performed By: #### P P, CBC #### [address] Lymphocytes/100 WBC (Bld) 25.5 % Normal . [facility] Comment on above: Performed By: #### P P, CBC #### [address] MCH (RBC) [Entitic mass] 30.0 pg Normal 24.7-34.3 [facility] Comment on above: Performed By: #### P P, CBC #### [address] MCV (RBC) [Entitic vol] 91.9 fL Normal 80-100 [facility] Comment on above: Performed By: #### P P, CBC #### [address] Mean Corpuscular HGB Conc 32.7 g/dL Normal 32.0-35.0 [facility] Comment on above: Performed By: #### P P, CBC #### [address] Monocytes (Bld) [#/Vol] 0.7 10*3/uL Normal 0.0-0.8 [facility] Comment on above: Performed By: #### P P, CBC #### [address] Monocytes/100 WBC (Bld) 5.6 % Normal . [facility] Comment on above: Performed By: #### P P, CBC #### [address] Neutrophils (Bld) [#/Vol] 8.0 10*3/uL High 1.8-7.7 [facility] Comment on above: Performed By: #### P P, CBC #### [address] Neutrophils/100 WBC (Bld) 64.2 % Normal . [facility] Comment on above: Performed By: #### P P, CBC #### [address] NRBC% 0.0 /100{WBC} Normal 0-0.5 [facility] Comment on above: Performed By: #### P P, CBC #### [address] Platelet mean volume (Bld) [Entitic vol] 7.0 fL Normal 6.3-10.7 [facility] Comment on above: Performed By: #### P P, CBC #### [address] Platelets (Bld) [#/Vol] 299 10*3/uL Normal 150-450 [facility] Comment on above: Performed By: #### P P, CBC #### [address] RBC (Bld) [#/Vol] 4.11 10*6/uL Normal 3.60-5.00 [facility] Comment on above: Performed By: #### P P, CBC #### [address] WBC (Bld) [#/Vol] 12.4 10*3/uL High 3.8-11.6 [facility] Comment on above: Performed By: #### P P, CBC #### [address] Comprehensive Metabolic Pane heriberto 01-22-2023 Albumin [Mass/Vol] 3.7 g/dL Normal 3.5-5.7 [facility] Comment on above: Performed By: #### P P, CBC #### [address] Albumin/Globulin [Mass ratio] 0.9 {ratio} Normal [facility] Comment on above: Performed By: #### P P, CBC #### [address] ALP [Catalytic activity/Vol] 169 U/L High 34-104 [facility] Comment on above: Performed By: #### P P, CBC #### [place] [id number] [place] ALT [Catalytic activity/Vol] 47 U/L Normal 7-52 [facility] Comment on above: Performed By: #### P P, CBC #### [facility] [address] [place] [address] Anion gap [Moles/Vol] 13.1 mmol/L Normal 6.0-15.0 [facility] Comment on above: Performed By: #### P P, CBC #### [facility] [address] [place] [address] AST [Catalytic activity/Vol] 48 U/L High 13-39 [facility] Comment on above: Performed By: #### P P, CBC #### [facility] [address] [place] [address] Bilirubin [Mass/Vol] 0.4 mg/dL Normal 0.3-1.0 [facility] Comment on above: Performed By: #### P P, CBC #### [facility] [address] [place] [address] Calcium [Mass/Vol] 8.6 mg/dL Normal 8.6-10.3 [facility] Comment on above: Performed By: #### P P, CBC #### [facility] [address] [place] [address] Chloride [Moles/Vol] 100 mmol/L Normal 98-107 [facility] Comment on above: Performed By: #### P P, CBC #### [facility] [address] [place] [address] CO2 [Moles/Vol] 32.1 mmol/L High 21.0-31.0 [facility] Comment on above: Performed By: #### P P, CBC #### [facility] [address] [place] [address] Creatinine [Mass/Vol] 1.37 mg/dL High 0.60-1.20 [facility] Comment on above: Performed By: #### P P, CBC #### [facility] [address] [place] [address] [place] Creatinine Clr Calc Pharmacy 44.97 Normal [facility] Comment on above: Performed By: #### P P, CBC #### [facility] [address] [place] [address] [place] GFR/1.73 sq M.predicted MDRD (S/P/Bld) [Vol rate/Area] 43.118 mL/min/{1.73_m2} Normal [facility] Comment on above: Performed By: #### P P, CBC #### [facility] [address] Globulin (S) [Mass/Vol] 4.2 g/dL Normal [facility] Comment on above: Performed By: #### P P, CBC #### [facility] [address] Glucose [Mass/Vol] 199 mg/dL High 70-100 [facility] Comment on above: Result Comment: [facility] Glucose Reference Range is dependent on time and content of last meal. Glucose of more than 200 mg/dL in a nonstressed, ambulatory subject supports the diagnosis of Diabetes Mellitus. ADA recommended reference range Performed By: #### P P, CBC #### [facility] [address] [place] [address] [place] Potassium [Moles/Vol] 4.2 mmol/L Normal 3.5-5.1 [facility] Comment on above: Performed By: #### P P, CBC #### [facility] [address] [place] [address] [place] Protein [Mass/Vol] 7.9 g/dL Normal 6.4-8.9 [facility] Comment on above: Performed By: #### P P, CBC #### [facility] [address] [place] [address] [place] Sodium [Moles/Vol] 141 mmol/L Normal 136-145 [facility] Comment on above: Performed By: #### P P, CBC #### [facility] [address] [place] [address] [place] Urea nitrogen [Mass/Vol] 13 mg/dL Normal 7-25 [facility] Comment on above: Performed By: #### P P, CBC #### [facility] [address] [place] [address] [place] Creatinine [Mass/volume] in Serum or PlasmaOrdered By: Roxane Bills on 01-22-2023 Creatinine [Mass/Vol] 1.37 mg/dL 0.60-1.20 [facility] Eosinophils Auto (Bld) [#/Vo l]Ordered By: Roxane Bills on 01-22-2023 Eosinophils (Bld) [#/Vol] 0.5 10*3/uL 0.0-0.45 [facility] Eosinophils/100 WBC Auto (Bl d)Ordered By: Roxane Bills on 01-22-2023 Eosinophils/100 WBC (Bld) 4.2 % . [facility] Erythrocyte distribution wid th Auto (RBC) [Ratio]Ordered By: Roxane Bills on 01-22-2023 Erythrocyte distribution width (RBC) [Ratio] 14.2 % 11.9-15.3 [facility] Ferritinon 01-22-2023 Ferritin [Mass/Vol] 192.2 ng/mL Normal 11.0-306.8 [facility] Comment on above: Result Comment: PERF ORMED BY: [place] [address] PATHOLOGIST [employer]LE[employer] ASSOC[employer]ATE AQUILINO JACK M.D. Performed By: #### P P, CBC #### [facility] [address] [place] [address] [place] Ferritin [Mass/volume] in Se rum or PlasmaOrdered By: Roxane Bills on 01-22-2023 Ferritin [Mass/Vol] 192.2 ng/mL 11.0-306.8 [facility] Free K+L LT Chains, Qn, Son 01-22-2023 Free [place] Light Chains, S 237.9 mg/L High 3.3-19.4 [facility] Comment on above: Performed By: #### P P, CBC #### [facility] [address] [place] [address] Free Lambda Light Chains, S 38.0 mg/L High 5.7-26.3 [facility] Comment on above: Performed By: #### P P, CBC #### [facility] [address] [place]/Lambda Ratio, S 6.26 High 0.26-1.65 [facility] Comment on above: Result Comment: Perf ormed at: CB - [facility] [address] [id number] [employer] Manager: Jhoan Rich PhD, Phone: [phone] PERFORMED BY: [place] [address] PATHOLOGIST [employer]LE[employer] ASSOCIATE AQUILINO JACK M.D. Performed By: #### P P, CBC #### [facility] [address] [place] [address] Globulin Calc (S) [Mass/Vol] Ordered By: Roxane Bills on 01-22-2023 Globulin (S) [Mass/Vol] 4.2 g/dL [facility] Glucose [Mass/volume] in Ser um or PlasmaOrdered By: Roxane iBlls on 01-22-2023 Glucose [Mass/Vol] 199 mg/dL 70-100 [facility] Comment on above: ADA recommended refe rence rangeRandom Glucose Reference Range is dependent on time and content of last meal. Glucose of more than 200 mg/dL in a nonstressed, ambulatory subject supports the diagnosis of Diabetes Mellitus. Hematocrit Auto (Bld) [Volum e fraction]Ordered By: Roxane Bills on 01-22-2023 Hematocrit (Bld) [Volume fraction] 37.8 % 34.0-46.4 [facility] Hemoglobin [Mass/volume] in BloodOrdered By: Roxane Bills on 01-22-2023 Hemoglobin (Bld) [Mass/Vol] 12.3 g/dL 11.8-15.4 [facility] IgA [Mass/volume] in Serum o r PlasmaOrdered By: Roxane Bills on 01-22-2023 IgA [Mass/Vol] 669 mg/dL 87-352 [facility] IgG [Mass/volume] in Serum o r PlasmaOrdered By: Roxane Bills on 01-22-2023 IgG [Mass/Vol] 1764 mg/dL 586-1602 [facility] IgM [Mass/volume] in Serum o r PlasmaOrdered By: Roxane Bills on 01-22-2023 IgM [Mass/Vol] 107 mg/dL 26-217 [facility] Comment on above: Performed at: [facility] [id number] [place], [place] [id number] Director: Jhoan Rich PhD, Phone: [phone] Immunofixation,Serumon 01-22 Immunofixation, Serum Abnormal . [facility] Comment on above: Result Comment: Immu nofixation shows IgG monoclonal protein with kappa light chain specificity. PLEASE NOTE: Samples from patients receiving DARZALEX(R) (daratumumab) or SARCLISA(R)(isatuximab-irfc) treatment can appear as an IgG kappa and mask a complete response (CR). If this patient is receiving these therapies, this MITCH assay interference can be removed by ordering test number [id number]- Immunofixation, Daratumumab-Specific, Serum or [id number]- Immunofixation, Isatuximab-Specific, Serum and submitting a new sample for testing or by calling the lab to add this test to the current sample. Performed By: #### P P, CBC #### [facility] [address] [place] [address] [place] Immunoglobulin A, Serum 669 mg/dL High 87-352 [facility] Comment on above: Performed By: #### P P, CBC #### [facility] [address] [place] [address] [place] Immunoglobulin G 1764 mg/dL High 586-1602 [facility] Comment on above: Performed By: #### P P, CBC #### [facility] [address] [place] [address] [place] Immunoglobulin M, Serum 107 mg/dL Normal 26-217 [facility] Comment on above: Result Comment: Perf ormed at: [facility] - [facility] [place] [address] [place], [place] [id number] [employer] Manager: Jhoan Rich PhD, Phone: [phone] Performed By: #### P P, CBC #### [facility] [address] [place] [address] [place] Immunoglobulin light chains. kappa.free [Mass/volume] in SerumOrdered By: Roxane Bills on 01-22-2023 Immunoglobulin light chains.kappa.free (S) [Mass/Vol] 237.9 mg/L 3.3-19.4 [facility] Immunoglobulin light chains. kappa.free/Immunoglobulin light chains.lambda.free [MassOrdered By: Roxane Bills on 01-22-2023 Immunoglobulin light chains.kappa.free/Immun oglobulin light chains.lambda.free (S) [Mass ratio] 6.26 0.26-1.65 [facility] Comment on above: Performed at: [place] [id number] Director: Jhoan Rich PhD, Phone: [phone] Immunoglobulin light chains. lambda.free [Mass/volume] in Serum or PlasmaOrdered By: Roxane Bills on 01-22-2023 Immunoglobulin light chains.lambda.free [Mass/Vol] 38.0 mg/L 5.7-26.3 [facility] Iron [Mass/volume] in Serum or PlasmaOrdered By: Roxane Bills on 01-22-2023 Iron [Mass/Vol] 74 ug/dL 50-212 [facility] Iron and TIBC Profileon 01-11 % Iron Saturation 23.8 % Normal 20-50 [facility] Comment on above: Performed By: #### P P, CBC #### [facility] [address] [place] [address] [facility] Iron [Mass/Vol] 74 ug/dL Normal 50-212 [facility] Comment on above: Performed By: #### P P, CBC #### [facility] [address] [place] [address] [place] Total Iron Binding Capacity 311 ug/dL Normal 255-450 [facility] Comment on above: Performed By: #### P P, CBC #### [facility] [address] [place] [address] [place] Transferrin [Mass/Vol] 222 mg/dL Normal 203-362 [facility] Comment on above: Performed By: #### P P, CBC #### [facility] [address] [place] [id number] [place] Iron binding capacity [Mass/ volume] in Serum or PlasmaOrdered By: Roxane Bills on 01-22-2023 Iron binding capacity [Mass/Vol] 311 ug/dL 255-450 [facility] Iron saturation [Mass Fracti on] in Serum or PlasmaOrdered By: Roxane Bills on 01-22-2023 Iron saturation [Mass fraction] 23.8 % 20-50 [facility] Leukocytes [#/volume] correc shan for nucleated erythrocytes in Blood by Automated counOrdered By: Roxane Bills on 01-22-2023 WBC corrected for nucl RBC Auto (Bld) [#/Vol] 12.4 10*3/uL 3.8-11.6 [facility] Lymphocytes Auto (Bld) [#/Vo l]Ordered By: Roxane Bills on 01-22-2023 Lymphocytes (Bld) [#/Vol] 3.2 10*3/uL 1.00-4.8 [facility] Lymphocytes/100 WBC Auto (Bl d)Ordered By: Roxane Bills on 01-22-2023 Lymphocytes/100 WBC (Bld) 25.5 % . [facility] MCH Auto (RBC) [Entitic mass ]Ordered By: Roxane Bills on 01-22-2023 MCH (RBC) [Entitic mass] 30.0 pg 24.7-34.3 [facility] MCHC Auto (RBC) [Mass/Vol]Or dered By: Roxane Bills on 01-22-2023 MCHC (RBC) [Mass/Vol] 32.7 g/dL 32.0-35.0 [facility] MCV Auto (RBC) [Entitic vol] Ordered By: Roxane Bills on 01-22-2023 MCV (RBC) [Entitic vol] 91.9 fL 80-100 [facility] Monocytes Auto (Bld) [#/Vol] Ordered By: Roxane Bills on 01-22-2023 Monocytes (Bld) [#/Vol] 0.7 10*3/uL 0.0-0.8 [facility] Monocytes/100 WBC Auto (Bld) Ordered By: Roxane Bills on 01-22-2023 Monocytes/100 WBC (Bld) 5.6 % . [facility] Neutrophils Auto (Bld) [#/Vo l]Ordered By: Roxane Bills on 01-22-2023 Neutrophils (Bld) [#/Vol] 8.0 10*3/uL 1.8-7.7 [facility] Neutrophils/100 WBC Auto (Bl d)Ordered By: Roxane Bills on 01-22-2023 Neutrophils/100 WBC (Bld) 64.2 % . [facility] No Panel InformationOrdered By: Roxane Bills on 01-22-2023 Estimated GFR (CKD-EPI) 43.118 mL/Min [facility] Creatinine Clearance (Chem 44.97 [facility] Serum Immunofixation See comment . [facility] Comment on above: Immunofixation shows IgG monoclonal protein with kappalight chain specificity. PLEASE NOTE: Samples from patients receiving DARZALEX(R)(daratumumab) or SARCLISA(R)(isatuximab-irfc) treatmentcan appear as an IgG kappa and mask a complete response(CR). If this patient is receiving these therapies, thisIFE assay interference can be removed by ordering testnumber [id number]- Immunofixation, Daratumumab-Specific,Serum or 560526- Immunofixation, Isatuximab-Specific,Serum and submitting a new sample for testing or bycalling the lab to add this test to the current sample. Nucleated erythrocytes [Pres ence] in Blood by Automated countOrdered By: Roxane Bills on 01-22-2023 Nucleated RBC Auto Ql (Bld) 0.0 /100{WBC} 0-0.5 [facility] Platelet mean volume Auto (B ld) [Entitic vol]Ordered By: Roxane Bills on 01-22-2023 Platelet mean volume (Bld) [Entitic vol] 7.0 fL 6.3-10.7 [facility] Platelets Auto (Bld) [#/Vol] Ordered By: Roxane Bills on 01-22-2023 Platelets (Bld) [#/Vol] 299 10*3/uL 150-450 [facility] Potassium [Moles/volume] in Serum or PlasmaOrdered By: Roxane Bills on 01-22-2023 Potassium [Moles/Vol] 4.2 mmol/L 3.5-5.1 [facility] Protein [Mass/volume] in Ser um or PlasmaOrdered By: Roxane Bills on 01-22-2023 Protein [Mass/Vol] 7.9 g/dL 6.4-8.9 [facility] RBC Auto (Bld) [#/Vol]Ordere d By: Roxane Garibayse on 01-22-2023 RBC (Bld) [#/Vol] 4.11 10*6/uL 3.60-5.00 [facility] Serum or plasma albumin/glob ulin mass ratioOrdered By: Roxane Sanju on 01-22-2023 Albumin/Globulin [Mass ratio] 0.9 {ratio} [facility] Serum or plasma anion gap de terminationOrdered By: Roxane Garibayse on 01-22-2023 Anion gap [Moles/Vol] 13.1 mmol/L 6.0-15.0 [facility] Sodium [Moles/volume] in Ser um or PlasmaOrdered By: Roxane Bills on 01-22-2023 Sodium [Moles/Vol] 141 mmol/L 136-145 [facility] Transferrin [Mass/volume] in Serum or PlasmaOrdered By: Roxane Sanju on 01-22-2023 Transferrin [Mass/Vol] 222 mg/dL 203-362 [facility] Urea nitrogen [Mass/volume] in Serum or PlasmaOrdered By: Roxane Sanju on 01-22-2023 Urea nitrogen [Mass/Vol] 13 mg/dL 7-25 [facility] WBC Auto (Bld) [#/Vol]Ordere d By: Roxane Sanju on 01-22-2023 WBC (Bld) [#/Vol] 12.4 10*3/uL 3.8-11.6 [facility] Glucose Glucometer (BldC) [M ass/Vol]Ordered By: Nik Pineda on 12-18-2022 Glucose [Mass/Vol] 202 mg/dL [facility] Comment on above: Random Glucose Refer ence Range is dependent on time and content of last meal. Glucose of more than 200 mg/dL in a nonstressed, ambulatory subject supports the diagnosis of Diabetes Mellitus. Glucose Poct Glucometerson 0 12-18-2022 Commemt1 Glu2: Cleaned Meter Normal [facility] Comment on above: Result Comment: PERF ORMED BY: [place] [address] PATHOLOGIST [employer] ASSOC[employer]ATE AQUILINO JACK M.D. Performed By: #### P P, CBC #### [facility] [address] [place] [address] Glucose [Mass/Vol] 202 mg/dL Normal [facility] Comment on above: Result Comment: [facility] Glucose Reference Range is dependent on time and content of last meal. Glucose of more than 200 mg/dL in a nonstressed, ambulatory subject supports the diagnosis of Diabetes Mellitus. Performed By: #### P P, CBC #### [facility] [address] [place] [address] No Panel InformationOrdered By: Nik Pineda on 12-18-2022 Bedside Glucose Comment Glu2: cleaned meter [facility] MR lumbar spine wo conon MR lumbar spine wo con [facility] [place] [address] [place] [address] MRI Report Signed Patient: Doreen Turcios MR#: [id number] 58 : 1960 Acct:[id number] Age/Sex: 62 / F ADM Date: 12/04/22 Loc: Room: Type: [facility] Attending Dr: Jez Josue DO Copies to: [...] Harvey Barry M.D.12/04/2022 10:27 AM Dictation Location: [place] [address] Transcribed By: [facility] 12/04/22 1027 Dictated By: Harvey Barry II, MD 12/04/22 1020 Signed By: 12/04/22 1027 Normal [facility] XR hip LT min 2V(w/wo pelvis )*on 09-16-2022 XR hip LT min 2V(w/wo pelvis)* [facility] [place] [address] XRay Report Signed Patient: Doreen Turcios MR#: [id number] 58 : 1960 Acct:[id number] Age/Sex: 61 / F ADM Date: 09/16/22 Loc: XDS Room: Type: [facility] Attending Dr: Peri Tyson DO Copies to: [...] Harvey Barry M.D.09/16/2022 4:17 PM Dictation Location: [place] [address] Transcribed By: [facility] 09/16/221616 Dictated By: Harvey Barry II, MD 09/16/22 161 Signed By: 09/16/22 161 Normal [facility] Albumin [Mass/volume] in Ser um or Plasma by Bromocresol green (BCG) dye binding methoOrdered By: Jeannie Aguilar on 08-07-2022 Albumin BCG dye [Mass/Vol] 3.8 g/dL 3.5-5.7 [facility] C-Peptideon 08-07-2022 C-Peptide 1.6 ng/mL Normal 1.1-4.4 [facility] Comment on above: Result Comment: C-Pe ptide reference interval is for fasting patients. Performed at: - [facility] [id number] [employer] Manager: Jhoan Rich PhD, Phone: [phone] PERFORMED BY: [address] [place] [address] PATHOLOGIST COLLEGE ASSOCIATE AQUILINO JACK M.D. Performed By: #### R ENAL, [id number], LIPID #### [facility] [address] #### CPEP #### [facility] , Calcium [Mass/volume] in Ser um or PlasmaOrdered By: Jeannie Aguilar on 08-07-2022 Calcium [Mass/Vol] 9.2 mg/dL 8.6-10.3 [facility] Carbon dioxide, total [Moles /volume] in Serum or PlasmaOrdered By: Jeannie Aguilar on 08-07-2022 CO2 [Moles/Vol] 32.6 mmol/L 21.0-31.0 [facility] Chloride [Moles/volume] in S logan or PlasmaOrdered By: Jeannie Aguilar on 08-07-2022 Chloride [Moles/Vol] 104 mmol/L 98-107 [facility] Cholesterol [Mass/volume] in Serum or PlasmaOrdered By: Jeannie Aguilar on 08-07-2022 Cholesterol [Mass/Vol] 148 mg/dL 140-200 [facility] Comment on above: Chol less than 200 m g/dl low riskChol 201-239 mg/dl borderline riskChol 240 mg/dl and greater high risk Cholesterol in LDL Calc [Mas s/Vol]Ordered By: Jeannie Aguilar on 08-07-2022 Cholesterol in LDL [Mass/Vol] 82 mg/dL 0-100 [facility] Comment on above: LDL ATP III CLASSIFI CATIONLDL less than 100 mg/dL OptimalLDL 100-129 mg/dL Near or above optimalLDL 130-159 mg/dL Borderline highLDL 160-189 mg/dL HighLDL greater than 189 mg/dL Very high Cholesterol in VLDL Calc [Ma ss/Vol]Ordered By: Jeannie Aguilar on 08-07-2022 Cholesterol in VLDL [Mass/Vol] 15 mg/dL [facility] Creatinine [Mass/volume] in Serum or PlasmaOrdered By: Jeannie Aguilar 08-07-2022 Creatinine [Mass/Vol] 1.65 mg/dL 0.60-1.20 [facility] Creatinine [Mass/volume] in UrineOrdered By: Jeannie Aguilar on 08-07-2022 Creatinine (U) [Mass/Vol] 51.0 mg/dL 11.0-20.0 [facility] Glucose [Mass/volume] in Ser um or PlasmaOrdered By: Jeannie Aguilar on 08-07-2022 Glucose [Mass/Vol] 71 mg/dL 70-100 [facility] Comment on above: ADA recommended refe rence rangeRandom Glucose Reference Range is dependent on time and content of last meal. Glucose of more than 200 mg/dL in a nonstressed, ambulatory subject supports the diagnosis of Diabetes Mellitus. Lipid Panelon 08-07-2022 Cholesterol [Mass/Vol] 148 mg/dL Normal 140-200 [facility] Comment on above: Order Comment: PT IS FASTING Result Comment: Chol less than 200 mg/dl low risk Chol 201-239 mg/dl borderline risk Chol 240 mg/dl and greater high risk Performed By: #### R ENAL, [id number], LIPID #### [facility] [address] [place] [address] [place] #### CPEP #### [facility] , Cholesterol in HDL [Mass/Vol] 51 mg/dL Normal 35-85 [facility] Comment on above: Order Comment: PT IS FASTING Result Comment: HDL CHOL ATP-III CLASSIFICATION Cardiovascular Risk HDL > or equal to 60 mg/dL LOW HDL < 40 mg/dL HIGH Performed By: #### R ENAL, [id number], LIPID #### [facility] [address] [place] [address] [place] #### CPEP #### [facility] , Cholesterol.total/Shahla sterol in HDL [Mass ratio] 2.9 {ratio} Normal <5.0 [facility] Comment on above: Order Comment: PT IS FASTING Performed By: #### R ENAL, [id number], LIPID #### [facility] [address] [place] [address] [place] #### CPEP #### [facility] , LDL Cholesterol,Calculated 82 mg/dL Normal 0-100 [facility] Comment on above: Order Comment: PT IS FASTING Result Comment: LDL ATP III CLASSIFICATION LDL less than 100 mg/dL Optimal LDL 100-129 mg/dL Near or above optimal LDL 130-159 mg/dL Borderline high LDL 160-189 mg/dL High LDL greater than 189 mg/dL Very high Performed By: #### R ENAL, [id number], LIPID #### [facility] [address] [place] [address] [place] #### CPEP #### [facility] , Triglyceride w/Reflex 75 mg/dL Normal 0-149 [facility] Comment on above: Order Comment: PT IS FASTING Result Comment: TRIG ATP III CLASSIFICATION TRIG less than 150 mg/dL Normal TRIG 150-199 mg/dL Borderline high TRIG 200-500 mg/dL High TRIG greater than 500 mg/dL Very high Standard traceable to the Center for Disease Conrtrol and Prevention (CDC) test method. Performed By: #### R ENAL, [id number], LIPID #### [place] [address] [place] #### CPEP #### [facility] , VLDL CHOLESTEROL 15 mg/dL Normal [facility] Comment on above: Order Comment: PT IS FASTING Performed By: #### R ENAL, [id number], LIPID #### [place] [address] [place] #### CPEP #### [facility] , MicroAlb Creat Ratio,Uon Albumin DL <= 20 mg/L (U) [Mass/Vol] mg/dL Normal 0.0-1.8 [facility] Comment on above: Performed By: #### R ENAL, [id number], LIPID #### [place] [address] [place] #### CPEP #### [facility] , Creatinine, Urine (Random) 51.0 mg/dL High 11.0-20.0 [facility] Comment on above: Performed By: #### R ENAL, [id number], LIPID #### [facility] [address] [place] [address] [place] #### CPEP #### [facility] , Microalbumin/Creatinine Ratio Not performed Normal 0.0-30.0 [facility] Comment on above: Result Comment: PERF ORMED BY: [facility] [address] [place] [address] PATHOLOGIST COLLEGE ASSOCIATE AQUILINO JACK M.D. Performed By: #### R ENAL, [id number], LIPID #### [facility] [address] #### CPEP #### [facility] , Microalbumin [Mass/volume] i n UrineOrdered By: Jeannie Aguilar on 08-07-2022 Albumin DL <= 20 mg/L (U) [Mass/Vol] mg/dL 0.0-1.8 [facility] No Panel InformationOrdered By: Jeannie Aguilar on 08-07-2022 C-Peptide 1.6 ng/mL 1.1-4.4 [facility] Comment on above: C-Peptide reference interval is for fasting patients.Performed at: - [facility] [address] [id number] Director: Jhoan Rich PhD, Phone: [phone] Estimated GFR (CKD-EPI) 34.710 mL/Min [facility] Creatinine Clearance (Chem N/A [facility] Phosphate [Mass/volume] in S logan or PlasmaOrdered By: Jeannie Aguilar on 08-07-2022 Phosphate [Mass/Vol] 4.5 mg/dL 3.7-7.2 [facility] Potassium [Moles/volume] in Serum or PlasmaOrdered By: Jeannie Aguilar on 08-07-2022 Potassium [Moles/Vol] 4.8 mmol/L 3.5-5.1 [facility] Renal Function Panelon 08-07 Albumin [Mass/Vol] 3.8 g/dL Normal 3.5-5.7 [facility] Comment on above: Order Comment: PT IS FASTING Performed By: #### R ENAL, [id number], LIPID #### [facility] [address] [place] [address] #### CPEP #### [facility] , Anion gap [Moles/Vol] 12.2 mmol/L Normal 6.0-15.0 [facility] Comment on above: Order Comment: PT IS FASTING Performed By: #### R ENAL, [id number], LIPID #### [facility] [address] [place] [address] #### CPEP #### [facility] , Calcium [Mass/Vol] 9.2 mg/dL Normal 8.6-10.3 [facility] Comment on above: Order Comment: PT IS FASTING Performed By: #### R ENAL, [id number], LIPID #### [facility] [address] [place] [address] #### CPEP #### [facility] , Chloride [Moles/Vol] 104 mmol/L Normal 98-107 [facility] Comment on above: Order Comment: PT IS FASTING Performed By: #### R ENAL, [id number], LIPID #### [facility] [address] [place] [address] #### CPEP #### [facility] , CO2 [Moles/Vol] 32.6 mmol/L High 21.0-31.0 [facility] Comment on above: Order Comment: PT IS FASTING Performed By: #### R ENAL, [id number], LIPID #### [facility] [address] [place] [address] [place] #### CPEP #### [facility] , Creatinine [Mass/Vol] 1.65 mg/dL High 0.60-1.20 [facility] Comment on above: Order Comment: PT IS FASTING Performed By: #### R ENAL, [id number], LIPID #### [facility] [address] [place] [address] [place] #### CPEP #### [facility] , GFR/1.73 sq M.predicted MDRD (S/P/Bld) [Vol rate/Area] 34.710 mL/min/{1.73_m2} Normal [facility] Comment on above: Order Comment: PT IS FASTING Performed By: #### R ENAL, [id number], LIPID #### [place] [address] [place] #### CPEP #### [facility] , Glucose [Mass/Vol] 71 mg/dL Normal 70-100 [facility] Comment on above: Order Comment: PT IS FASTING Result Comment: [facility] Glucose Reference Range is dependent on time and content of last meal. Glucose of more than 200 mg/dL in a nonstressed, ambulatory subject supports the diagnosis of Diabetes Mellitus. ADA recommended reference range Performed By: #### R ENAL, [id number], LIPID #### [place] [address] [place] #### CPEP #### [facility] , Phosphate [Mass/Vol] 4.5 mg/dL Normal 3.7-7.2 [facility] Comment on above: Order Comment: PT IS FASTING Performed By: #### R ENAL, [id number], LIPID #### [facility] [address] [place] [address] [place] #### CPEP #### [facility] , Potassium [Moles/Vol] 4.8 mmol/L Normal 3.5-5.1 [facility] Comment on above: Order Comment: PT IS FASTING Performed By: #### R ENAL, [id number], LIPID #### [place] [address] [place] #### CPEP #### [facility] , Sodium [Moles/Vol] 144 mmol/L Normal 136-145 [facility] Comment on above: Order Comment: PT IS FASTING Performed By: #### R ENAL, [id number], LIPID #### [facility] [address] #### CPEP #### [facility] , Urea nitrogen [Mass/Vol] 22 mg/dL Normal 7-25 [facility] Comment on above: Order Comment: PT IS FASTING Performed By: #### R ENAL, [id number], LIPID #### [facility] [address] [place] [address] [place] #### CPEP #### [facility] , Serum or plasma anion gap de terminationOrdered By: Jeannie Aguilar on 08-07-2022 Anion gap [Moles/Vol] 12.2 mmol/L 6.0-15.0 [facility] Serum or plasma high density lipoprotein (HDL) cholesterol measurementOrdered By: Jeannie Aguilar on 08-07-2022 Cholesterol in HDL [Mass/Vol] 51 mg/dL 35-85 [facility] Comment on above: HDL CHOL ATP-III CLA SSIFICATION Cardiovascular RiskHDL > or equal to 60 mg/dL LOWHDL < 40 mg/dL HIGH Serum or plasma total choles terol/high density lipoprotein (HDL) cholesterol mass ratOrdered By: Jeannie Aguilar on 08-07-2022 Cholesterol.total/Shahla sterol in HDL [Mass ratio] 2.9 {ratio} <5.0 [facility] Sodium [Moles/volume] in Ser um or PlasmaOrdered By: Jeannie Aguilar on 08-07-2022 Sodium [Moles/Vol] 144 mmol/L 136-145 [facility] Triglyceride [Mass/volume] i n Serum or PlasmaOrdered By: Jeannie Aguilar on 08-07-2022 Triglyceride [Mass/Vol] 75 mg/dL 0-149 [facility] Comment on above: TRIG ATP III CLASSIF ICATIONTRIG less than 150 mg/dL NormalTRIG 150-199 mg/dL Borderline highTRIG 200-500 mg/dL High TRIG greater than 500 mg/dL Very highStandard traceable to the Center for Disease Conrtrol and Prevention (CDC) test method. Urea nitrogen [Mass/volume] in Serum or PlasmaOrdered By: Jeannie Aguilar on 08-07-2022 Urea nitrogen [Mass/Vol] 22 mg/dL 7- [facility] Urine microalbumin/creatinin e mass ratioOrdered By: Jeannie Aguilar on 08-07-2022 Albumin/Creatinine DL <= 20 mg/L (U) [Mass ratio] TNP [facility] Comment on above: Test not performed Vitamin D 25 Hydroxy Totalon 08-07-2022 Vitamin D 25 Hydroxy Total 47.6 ng/mL Normal 30-100 [facility] Comment on above: Order Comment: PT IS FASTING Result Comment: KOBI MIN D STATUS 25(OH)VITAMIN D RANGE (ng/mL) Deficient <20 Insufficient 20 to <30 Sufficient 30 to 100 Reference: Vanessa Negron, Caesar ASIF, et al. Evaluation,treatment, and prevention of vitamin D deficiency; an Endocrine Society clinical practice guideline. JCEM. 2010; 96(7):1911-30. PERFORMED BY: [place] [address] PATHOLOGIST COLLEGE ASSOCIATE AQUILINO JACK M.D. Performed By: #### R ENAL, [id number], LIPID #### [address] #### CPEP #### [facility] , Vitamin D+Metabolites [Mass/ volume] in Serum or PlasmaOrdered By: Jeannie Aguilar on 08-07-2022 Vitamin D+Metabolites [Mass/Vol] 47.6 ng/mL 30-100 [facility] Comment on above: VITAMIN D STATUS 25( [place])VITAMIN D RANGE (ng/mL) Deficient <20 Insufficient 20 to <30Sufficient 30 to 100Reference: Vanessa Negron, Caesar ASIF, et al. Evaluation,treatment, and prevention of vitamin D deficiency; an Endocrine Society clinical practice guideline. JCEM. 2010; 96(7):1911-30. US venous duplex LE BIon US venous duplex LE BI [facility] [place] [address] [place] [address] Ultrasound Report Signed Patient: Doreen Turcios MR#: [id number] 58 : 1960 Acct:[id number] Age/Sex: 61 / F ADM Date: 07/07/22 Loc: [facility] Room: Type: [facility] Attending Dr: Domenico Whitmore MD Ordering [...] measuring 3 mm in diameter. 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 There is no lesser [...] to 3 mm in diameter. 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 The lesser saphenous vein is normal in size. US/US venous duplex LE BI IMPRESSION: No evidence for deep vein thrombosis in either lower extremity. Minimal venous valvular incompetence is noted. There are more varicosities in the left leg than in the right leg Impression dictated by: Domenico Whitmore M.D.08/04/2022 1:47 PM Dictation Location: [facility] Tech: Eve Ramos Transcribed By: RACHEL 08/04/22 1347 Dictated By: Domenico Whitmore MD 08/04/22 1344 Signed By: 08/04/22 1347 Normal [facility] Albumin [Mass/volume] in Ser um or PlasmaOrdered By: Shanae Galicia on 07-22-2022 Albumin [Mass/Vol] 3.2 g/dL 2.9-4.4 [facility] Basophils Auto (Bld) [#/Vol] Ordered By: Shanae Galicia on 07-22-2022 Basophils (Bld) [#/Vol] 0.0 10*3/uL 0.0-0.2 [facility] Basophils/100 WBC Auto (Bld) Ordered By: Shanae Galicia on 07-22-2022 Basophils/100 WBC (Bld) 0.5 % . [facility] Complete Blood Count Auto Di ffon 07-22-2022 Basophils (Bld) [#/Vol] 0.0 10*3/uL Normal 0.0-0.2 [facility] Comment on above: Result Comment: PERF ORMED BY: [address] [place] [address] PATHOLOGIST COLLEGE ASSOCIATE AQUILINO JACK M.D. Performed By: #### C BC, FE and TIBC, CLEOPATRA #### [facility] [address] [place] [address] [place] #### SPE, KAPPA, MITCH SERUM #### [facility] , Basophils/100 WBC (Bld) 0.5 % Normal . [facility] Comment on above: Performed By: #### C BC, FE and TIBC, CLEOPATRA #### [facility] [address] [place] [address] [place] #### SPE, KAPPA, MITCH SERUM #### [facility] , Eosinophils (Bld) [#/Vol] 0.6 10*3/uL High 0.0-0.45 [facility] Comment on above: Performed By: #### C BC, FE and TIBC, CLEOPATRA #### [place] [address] [place] #### SPE, KAPPA, MITCH SERUM #### [facility] , Eosinophils/100 WBC (Bld) 6.1 % Normal . [facility] Comment on above: Performed By: #### C BC, FE and TIBC, CLEOPATRA #### [place] [address] [place] #### SPE, KAPPA, MITCH SERUM #### [facility] , Erythrocyte distribution width (RBC) [Ratio] 14.7 % Normal 11.9-15.3 [facility] Comment on above: Performed By: #### C BC, FE and TIBC, CLEOPATRA #### [place] [address] [place] #### SPE, KAPPA, MITCH SERUM #### [facility] , Hematocrit (Bld) [Volume fraction] 37.1 % Normal 34.0-46.4 [facility] Comment on above: Performed By: #### C BC, FE and TIBC, CLEOPATRA #### [place] [address] [place] #### SPE, KAPPA, MITHC SERUM #### [facility] , Hemoglobin (Bld) [Mass/Vol] 12.1 g/dL Normal 11.8-15.4 [facility] Comment on above: Performed By: #### C BC, FE and TIBC, CLEOPATRA #### [place] [address] [place] #### SPE, KAPPA, MITCH SERUM #### [facility] , Lymphocytes (Bld) [#/Vol] 2.6 10*3/uL Normal 1.00-4.8 [facility] Comment on above: Performed By: #### C BC, FE and TIBC, CLEOPATRA #### [place] [address] [place] #### SPE, KAPPA, MITCH SERUM #### [facility] , Lymphocytes/100 WBC (Bld) 25.2 % Normal . [facility] Comment on above: Performed By: #### C BC, FE and TIBC, CLEOPATRA #### [place] [address] [place] #### SPE, KAPPA, MITCH SERUM #### [facility] , MCH (RBC) [Entitic mass] 29.6 pg Normal 24.7-34.3 [facility] Comment on above: Performed By: #### C BC, FE and TIBC, CLEOPATRA #### [address] #### SPE, KAPPA, MITCH SERUM #### [facility] , MCV (RBC) [Entitic vol] 90.4 fL Normal 80-100 [facility] Comment on above: Performed By: #### C BC, FE and TIBC, CLEOPATRA #### [place] [address] [place] #### SPE, KAPPA, MITCH SERUM #### [facility] , Mean Corpuscular HGB Conc 32.7 g/dL Normal 32.0-35.0 [facility] Comment on above: Performed By: #### C BC, FE and TIBC, CLEOPATRA #### [place] [address] [place] #### SPE, KAPPA, MITCH SERUM #### [facility] , Monocytes (Bld) [#/Vol] 0.7 10*3/uL Normal 0.0-0.8 [facility] Comment on above: Performed By: #### C BC, FE and TIBC, CLEOPATRA #### [place] [address] [place] #### SPE, KAPPA, MITCH SERUM #### [facility] , Monocytes/100 WBC (Bld) 7.0 % Normal . [facility] Comment on above: Performed By: #### C BC, FE and TIBC, CLEOPATRA #### [place] [address] [place] #### SPE, KAPPA, MITCH SERUM #### [facility] , Neutrophils (Bld) [#/Vol] 6.2 10*3/uL Normal 1.8-7.7 [facility] Comment on above: Performed By: #### C BC, FE and TIBC, CLEOPATRA #### [address] #### SPE, KAPPA, MITCH SERUM #### [facility] , Neutrophils/100 WBC (Bld) 61.2 % Normal . [facility] Comment on above: Performed By: #### C BC, FE and TIBC, CLEOPATRA #### [place] [address] [place] #### SPE, KAPPA, MITCH SERUM #### [facility] , NRBC% 0.0 /100{WBC} Normal 0-0.5 [facility] Comment on above: Performed By: #### C BC, FE and TIBC, CLEOPATRA #### [place] [address] [place] #### SPE, KAPPA, MITCH SERUM #### [facility] , Platelet mean volume (Bld) [Entitic vol] 7.4 fL Normal 6.3-10.7 [facility] Comment on above: Performed By: #### C BC, FE and TIBC, CLEOPATRA #### [facility] [address] [place] [address] [place] #### SPE, KAPPA, MITCH SERUM #### [facility] , Platelets (Bld) [#/Vol] 267 10*3/uL Normal 150-450 [facility] Comment on above: Performed By: #### C BC, FE and TIBC, CLEOPATRA #### [facility] [address] [place] [address] [place] #### SPE, KAPPA, MITCH SERUM #### [facility] , RBC (Bld) [#/Vol] 4.10 10*6/uL Normal 3.60-5.00 [facility] Comment on above: Performed By: #### C BC, FE and TIBC, CLEOPATRA #### [facility] [address] [place] [address] [place] #### SPE, KAPPA, MITCH SERUM #### [facility] , WBC (Bld) [#/Vol] 10.2 10*3/uL Normal 3.8-11.6 [facility] Comment on above: Performed By: #### C BC, FE and TIBC, CLEOPATRA #### [facility] [address] [place] [address] [place] #### SPE, KAPPA, MITCH SERUM #### [facility] , Eosinophils Auto (Bld) [#/Vo l]Ordered By: Shanae Grayson on 07-22-2022 Eosinophils (Bld) [#/Vol] 0.6 10*3/uL 0.0-0.45 [facility] Eosinophils/100 WBC Auto (Bl d)Ordered By: Shanae Galicia on 07-22-2022 Eosinophils/100 WBC (Bld) 6.1 % . [facility] Erythrocyte distribution wid th Auto (RBC) [Ratio]Ordered By: Shanae Galicia on 07-22-2022 Erythrocyte distribution width (RBC) [Ratio] 14.7 % 11.9-15.3 [facility] Ferritinon 07-22-2022 Ferritin [Mass/Vol] 284.4 ng/mL Normal 11.0-306.8 [facility] Comment on above: Order Comment: PT IS FASTING Result Comment: PERF ORMED BY: [place] [address] PATHOLOGIST COLLEGE ASSOCIATE AQUILINO JACK M.D. Performed By: #### C BC, FE and TIBC, CLEOPATRA #### [address] #### SPE, KAPPA, MITCH SERUM #### [facility] , Ferritin [Mass/volume] in Se rum or PlasmaOrdered By: Shanae Grayson on 07-22-2022 Ferritin [Mass/Vol] 284.4 ng/mL 11.0-306.8 [facility] Free K+L LT Chains, Qn, Son 07-22-2022 Free [place] Light Chains, S 120.4 mg/L High 3.3-19.4 [facility] Comment on above: Performed By: #### P P, CBC #### [facility] [address] [place] [address] Free Lambda Light Chains, S 32.9 mg/L High 5.7-26.3 [facility] Comment on above: Performed By: #### P P, CBC #### [facility] [address] [place] [address] [place]/Lambda Ratio, S 3.66 High 0.26-1.65 [facility] Comment on above: Result Comment: Perf ormed at: CB - [facility] [address] [id number] [employer] Manager: Jhoan Rich PhD, Phone: [phone] PERFORMED BY: [place] [address] PATHOLOGIST COLLEGE ASSOCIATE AQUILINO JACK M.D. Performed By: #### P P, CBC #### [address] Hematocrit Auto (Bld) [Volum e fraction]Ordered By: Shanae Grayson on 07-22-2022 Hematocrit (Bld) [Volume fraction] 37.1 % 34.0-46.4 [facility] Hemoglobin [Mass/volume] in BloodOrdered By: Shanae Grayson on 07-22-2022 Hemoglobin (Bld) [Mass/Vol] 12.1 g/dL 11.8-15.4 [facility] IgA [Mass/volume] in Serum o r PlasmaOrdered By: Shanae Galicia on 07-22-2022 IgA [Mass/Vol] 656 mg/dL 87-352 [facility] IgG [Mass/volume] in Serum o r PlasmaOrdered By: Shanae Galicia on 07-22-2022 IgG [Mass/Vol] 1303 mg/dL 586-1602 [facility] IgM [Mass/volume] in Serum o r PlasmaOrdered By: Shanae Galicia on 07-22-2022 IgM [Mass/Vol] 91 mg/dL 26-217 [facility] Comment on above: Performed at: [place] [id number] Director: Jhoan Rich PhD, Phone: [phone] Immunofixation,Serumon 07-22 Immunofixation, Serum Abnormal . [facility] Comment on above: Result Comment: Immu nofixation shows IgG monoclonal protein with kappa light chain specificity. PLEASE NOTE: Samples from patients receiving DARZALEX(R) (daratumumab) or SARCLISA(R)(isatuximab-irfc) treatment can appear as an IgG kappa and mask a complete response (CR). If this patient is receiving these therapies, this MITCH assay interference can be removed by ordering test number 390781- Immunofixation, Daratumumab-Specific, Serum or [id number]- Immunofixation, Isatuximab-Specific, Serum and submitting a new sample for testing or by calling the lab to add this test to the current sample. Performed By: #### C BC, FE and TIBC, CLEOPATRA #### [facility] [address] [place] [address] [place] #### SPE, KAPPA, MITCH SERUM #### [facility] , Immunoglobulin A, Serum 656 mg/dL High 87-352 [facility] Comment on above: Performed By: #### C BC, FE and TIBC, CLEOPATRA #### [facility] [address] [place] [address] [place] #### SPE, KAPPA, MITCH SERUM #### [facility] , Immunoglobulin G 1303 mg/dL Normal 586-1602 [facility] Comment on above: Performed By: #### C BC, FE and TIBC, CLEOPATRA #### [facility] [address] [place] [address] [place] #### SPE, KAPPA, MITCH SERUM #### [facility] , Immunoglobulin M, Serum 91 mg/dL Normal 26-217 [facility] Comment on above: Result Comment: Perf ormed at: - [facility] [place] [address] [place] [id number] [employer] Manager: Jhoan Rich PhD, Phone: [phone] Performed By: #### C BC, FE and TIBC, CLEOPATRA #### [facility] [address] [place] [address] [place] #### SPE, KAPPA, MITCH SERUM #### [facility] , Immunoglobulin light chains. kappa.free [Mass/volume] in SerumOrdered By: Shanae Galicia on 07-22-2022 Immunoglobulin light chains.kappa.free (S) [Mass/Vol] 120.4 mg/L 3.3-19.4 [facility] Immunoglobulin light chains. kappa.free/Immunoglobulin light chains.lambda.free [MassOrdered By: Shanae Galicia on 07-22-2022 Immunoglobulin light chains.kappa.free/Immun oglobulin light chains.lambda.free (S) [Mass ratio] 3.66 0.26-1.65 [facility] Comment on above: Performed at: - L [facility] [place] [address] [id number] Director: Jhoan Rich PhD, Phone: [phone] Immunoglobulin light chains. lambda.free [Mass/volume] in Serum or PlasmaOrdered By: Shanae Galicia on 07-22-2022 Immunoglobulin light chains.lambda.free [Mass/Vol] 32.9 mg/L 5.7-26.3 [facility] Iron [Mass/volume] in Serum or PlasmaOrdered By: Shanae Galicia on 07-22-2022 Iron [Mass/Vol] 67 ug/dL 50-212 [facility] Iron and TIBC Profileon 07-12 % Iron Saturation 23.1 % Normal 20-50 [facility] Comment on above: Order Comment: PT IS FASTING Performed By: #### C BC, FE and TIBC, CLEOPATRA #### [facility] [address] [place] [address] [place] #### SPE, KAPPA, MITCH SERUM #### [facility] , Iron [Mass/Vol] 67 ug/dL Normal 50-212 [facility] Comment on above: Order Comment: PT IS FASTING Performed By: #### C BC, FE and TIBC, CLEOPATRA #### [place] [address] [place] #### SPE, KAPPA, MITCH SERUM #### [facility] , Total Iron Binding Capacity 290 ug/dL Normal 255-450 [facility] Comment on above: Order Comment: PT IS FASTING Performed By: #### C BC, FE and TIBC, CLEOPATRA #### [facility] [address] [place] [address] [place] #### SPE, KAPPA, MITCH SERUM #### [facility] , Transferrin [Mass/Vol] 207 mg/dL Normal 203-362 [facility] Comment on above: Order Comment: PT IS FASTING Performed By: #### C BC, FE and TIBC, CLEOPATRA #### [address] #### SPE, KAPPA, MITCH SERUM #### [facility] , Iron binding capacity [Mass/ volume] in Serum or PlasmaOrdered By: Shanae Galicia on 07-22-2022 Iron binding capacity [Mass/Vol] 290 ug/dL 255-450 [facility] Iron saturation [Mass Fracti on] in Serum or PlasmaOrdered By: Shanae Galicia on 07-22-2022 Iron saturation [Mass fraction] 23.1 % 20-50 [facility] Laboratory - Chemistry and C hemistry - challengeOrdered By: Shanae Galicia on 07-22-2022 Protein [Mass/Vol] 0.5 g/dL Not Observed [facility] Leukocytes [#/volume] correc shan for nucleated erythrocytes in Blood by Automated counOrdered By: Shanae Galicia on 07-22-2022 WBC corrected for nucl RBC Auto (Bld) [#/Vol] 10.2 10*3/uL 3.8-11.6 [facility] Lymphocytes Auto (Bld) [#/Vo l]Ordered By: Shanae Galicia on 07-22-2022 Lymphocytes (Bld) [#/Vol] 2.6 10*3/uL 1.00-4.8 [facility] Lymphocytes/100 WBC Auto (Bl d)Ordered By: Shanae Galicia on 07-22-2022 Lymphocytes/100 WBC (Bld) 25.2 % . [facility] MCH Auto (RBC) [Entitic mass ]Ordered By: Shanae Galicia on 07-22-2022 MCH (RBC) [Entitic mass] 29.6 pg 24.7-34.3 [facility] MCHC Auto (RBC) [Mass/Vol]Or dered By: Shanae Galicia on 07-22-2022 MCHC (RBC) [Mass/Vol] 32.7 g/dL 32.0-35.0 [facility] MCV Auto (RBC) [Entitic vol] Ordered By: Shanae Galicia on 07-22-2022 MCV (RBC) [Entitic vol] 90.4 fL 80-100 [facility] Monocytes Auto (Bld) [#/Vol] Ordered By: Shanae Galicia on 07-22-2022 Monocytes (Bld) [#/Vol] 0.7 10*3/uL 0.0-0.8 [facility] Monocytes/100 WBC Auto (Bld) Ordered By: Shanae Galicia on 07-22-2022 Monocytes/100 WBC (Bld) 7.0 % . [facility] Neutrophils Auto (Bld) [#/Vo l]Ordered By: Shanae Galicia on 07-22-2022 Neutrophils (Bld) [#/Vol] 6.2 10*3/uL 1.8-7.7 [facility] Neutrophils/100 WBC Auto (Bl d)Ordered By: Shanae Galicia on 07-22-2022 Neutrophils/100 WBC (Bld) 61.2 % . [facility] No Panel InformationOrdered By: Shanae Galicia on 07-22-2022 Protein Electrophoresis Note See comment . [facility] Comment on above: Protein electrophore sis scan will follow via computer,mail, or dramatic critic delivery.Performed at: [facility] [address] [id number] Director: Jhoan Rich PhD, Phone: [phone] Serum Immunofixation See comment . [facility] Comment on above: Immunofixation shows IgG monoclonal protein with kappalight chain specificity. PLEASE NOTE: Samples from patients receiving DARZALEX(R)(daratumumab) or SARCLISA(R)(isatuximab-irfc) treatmentcan appear as an IgG kappa and mask a complete response(CR). If this patient is receiving these therapies, thisIFE assay interference can be removed by ordering testnumber [id number]- Immunofixation, Daratumumab-Specific,Serum or [id number]- Immunofixation, Isatuximab-Specific,Serum and submitting a new sample for testing or bycalling the lab to add this test to the current sample. Nucleated erythrocytes [Pres ence] in Blood by Automated countOrdered By: Shanae Galicia on 07-22-2022 Nucleated RBC Auto Ql (Bld) 0.0 /100{WBC} 0-0.5 [facility] Platelet mean volume Auto (B ld) [Entitic vol]Ordered By: Shanae Galicia on 07-22-2022 Platelet mean volume (Bld) [Entitic vol] 7.4 fL 6.3-10.7 [facility] Platelets Auto (Bld) [#/Vol] Ordered By: Shanae Galicia on 07-22-2022 Platelets (Bld) [#/Vol] 267 10*3/uL 150-450 [facility] Protein Electrophoresis, Ser umon 07-22-2022 Albumin [Mass/Vol] 3.2 g/dL Normal 2.9-4.4 [facility] Comment on above: Performed By: #### P P, CBC #### [address] Albumin/Globulin [Mass ratio] 0.8 {ratio} Normal 0.7-1.7 [facility] Comment on above: Performed By: #### P P, CBC #### [facility] [address] Ovwro-5-Umzqjuzs 0.3 g/dL Normal 0.0-0.4 [facility] Comment on above: Performed By: #### P P, CBC #### [facility] [address] Oafqa-1-Frxmfvoc 1.0 g/dL Normal 0.4-1.0 [facility] Comment on above: Performed By: #### P P, CBC #### [facility] [address] Beta Globulin 1.2 g/dL Normal 0.7-1.3 [facility] Comment on above: Performed By: #### P P, CBC #### [facility] [address] Gamma Globulin 1.4 g/dL Normal 0.4-1.8 [facility] Comment on above: Performed By: #### P P, CBC #### [facility] [address] Globulin (S) [Mass/Vol] 3.9 g/dL Normal 2.2-3.9 [facility] Comment on above: Performed By: #### P P, CBC #### [facility] [address] [place] [address] [place] M-Damien 0.5 g/dL High Not Observed [facility] Comment on above: Performed By: #### P P, CBC #### [facility] [address] [place] [address] [place] Protein [Mass/Vol] 7.1 g/dL Normal 6.0-8.5 [facility] Comment on above: Performed By: #### P P, CBC #### [facility] [address] [place] [address] SPE-Note Normal . [facility] Comment on above: Result Comment: Prot ein electrophoresis scan will follow via computer, mail, or dramatic critic delivery. Performed at: - [facility] [id number] [employer] Manager: Jhoan Rich PhD, Phone: [phone] Performed By: #### P P, CBC #### [facility] [address] [place] [id number] [facility] Protein [Mass/volume] in Ser um or PlasmaOrdered By: Shanae Galicia on 07-22-2022 Protein [Mass/Vol] 7.1 g/dL 6.0-8.5 [facility] RBC Auto (Bld) [#/Vol]Ordere d By: Shanae Galicia on 07-22-2022 RBC (Bld) [#/Vol] 4.10 10*6/uL 3.60-5.00 [facility] Serum globulin measurement ( mass/volume)Ordered By: Shanae Galicia on 07-22-2022 Globulin (S) [Mass/Vol] 3.9 g/dL 2.2-3.9 [facility] Serum or plasma albumin/glob ulin mass ratioOrdered By: Shanae Galicia on 07-22-2022 Albumin/Globulin [Mass ratio] 0.8 {ratio} 0.7-1.7 [facility] Serum or plasma alpha 1 glob ulin measurement by electrophoresis (mass/volume)Ordered By: Shanae Galicia on 07-22-2022 Alpha 1 globulin Elph [Mass/Vol] 0.3 g/dL 0.0-0.4 [facility] Serum or plasma alpha 2 glob ulin measurement by electrophoresis (mass/volume)Ordered By: Shanae Galicia on 07-22-2022 Alpha 2 globulin Elph [Mass/Vol] 1.0 g/dL 0.4-1.0 [facility] Serum or plasma beta globuli n measurement by electrophoresis (mass/volume)Ordered By: Shanae Galicia on 07-22-2022 Beta globulin Elph [Mass/Vol] 1.2 g/dL 0.7-1.3 [facility] Serum or plasma gamma globul in measurement by electrophoresis (mass/volume)Ordered By: Shanae Galicia on 07-22-2022 Gamma globulin Elph [Mass/Vol] 1.4 g/dL 0.4-1.8 [facility] Transferrin [Mass/volume] in Serum or PlasmaOrdered By: Shanae Galicia on 07-22-2022 Transferrin [Mass/Vol] 207 mg/dL 203-362 [facility] WBC Auto (Bld) [#/Vol]Ordere d By: Shanae Galicia on 07-22-2022 WBC (Bld) [#/Vol] 10.2 10*3/uL 3.8-11.6 [facility] FFD mammogram Breast - bilat eral Screeningon 05-23-2022 MM screening mammo BI w/CAD [facility] [email or web address] [facility] [employer] Other MM screening mammo BI w/CAD [facility] [place] [employer] Other MM screening mammo BI w/CAD [address]111 [facility] [employer] Other MM screening mammo BI w/[place] [address] [employer] Other MM screening mammo BI w/CAD Mammography Report [facility] Other MM screening mammo BI w/CAD Signed [facility] Other MM screening mammo BI w/CAD Patient: Doreen Turcios MR#: [id number] [employer] Other MM screening mammo BI w/CAD 58 [facility] Other MM screening mammo BI w/CAD : 1960 Acct:[id number] [employer] Other MM screening mammo BI w/CAD Age/Sex: 61 / F ADM Date: 05/23/22 [employer] Other MM screening mammo BI w/CAD Loc: [place] Room: Type: [facility] [employer] Other MM screening mammo BI w/CAD Attending Dr: Peri Tyson DO [employer] Other MM screening mammo BI w/CAD Copies to: Peri Tyson, DO [employer] Other MM screening mammo BI w/CAD Ordering Provider: Peri Tyson DO [facility] Other MM screening mammo BI w/CAD Date of Service: 05/23/22 [facility] Other MM screening mammo BI w/CAD MM/MM screening mammo BI w/CAD: Breast cancer screening [employer] Other MM screening mammo BI w/CAD Bilateral Screening Full Field digital mammogram with 3-D imaging. [employer] Other MM screening mammo BI w/CAD Full field digital CC and MLO imaging performed. CAD utilized. [employer] Other MM screening mammo BI w/CAD COMPARISON: 04/17/2021 [employer] Other MM screening mammo BI w/CAD HISTORY:Screening [employer] Other MM screening mammo BI w/CAD FINDINGS: Scattered fibroglandular densities of the breast parenchyma identified. No developing [employer] Other MM screening mammo BI w/CAD architectural distortion, developing focal breast asymmetry or developing malignant calcifications [employer] Other MM screening mammo BI w/CAD identified. Scattered benign calcifications identified. [employer] Other MM screening mammo BI w/CAD MM/MM screening mammo BI w/CAD [employer] Other MM screening mammo BI w/CAD IMPRESSION:No mammographic evidence of malignancy. Routine follow-up recommended in one year. [employer] Other MM screening mammo BI w/CAD RESULT CODE: 2 [employer] Other MM screening mammo BI w/CAD Benign Findings(s) [employer] Other MM screening mammo BI w/CAD DENSITY CODE: 2 (approximately 25-50% glandular) [employer] Other MM screening mammo BI w/CAD FOLLOW UP: 1YR [employer] Other MM screening mammo BI w/CAD THE FALSE-NEGATIVE RATE OF MAMMOGRAPHY IS APPROXIMATELY 10%. [employer] Other MM screening mammo BI w/CAD IMAGING OF A PALPABLE ABNORMALITY MUST BE BASED ON CLINICAL GROUNDS. [employer] Other MM screening mammo BI w/CAD PATIENT WAS ENTERED INTO A REMINDER SYSTEM WITH A TARGET DUE DATE FOR THE NEXT MAMMOGRAM. [employer] Other MM screening mammo BI w/CAD Impression dictated by: Domenico Brown M.D.05/23/2022 12:04 PM [employer] Other MM screening mammo BI w/CAD Dictation Location: [facility] [employer] Other MM screening mammo BI w/CAD Transcribed By: [facility] 05/23/22 1204 [employer] Other MM screening mammo BI w/CAD Dictated By: Domenico Brown DO 05/23/22 1159 [employer] Other MM screening mammo BI w/CAD Signed By: [employer] Other MM screening mammo BI w/CAD 05/23/22 1209 [employer] Other Albumin [Mass/volume] in Ser um or PlasmaOrdered By: Peri Tyson on 05-09-2022 Albumin [Mass/Vol] 3.4 g/dL 3.2-5.5 [facility] Cholesterol [Mass/volume] in Serum or PlasmaOrdered By: Peri Tyson on 05-09-2022 Cholesterol [Mass/Vol] 149 mg/dL Normal 140-2 00 mg/dL [facility] Comment on above: Chol less than 200 m g/dl low riskChol 201-239 mg/dl borderline riskChol 240 mg/dl and greater high risk Cholesterol in LDL Calc [Mas s/Vol]Ordered By: Peri Tyson on 05-09-2022 Cholesterol in LDL [Mass/Vol] 85 mg/dL 0-100 [facility] Comment on above: LDL ATP III CLASSIFI CATIONLDL less than 100 mg/dL OptimalLDL 100-129 mg/dL Near or above optimalLDL 130-159 mg/dL Borderline highLDL 160-189 mg/dL HighLDL greater than 189 mg/dL Very high Cholesterol in VLDL Calc [Ma ss/Vol]Ordered By: Peri Tyson on 05-09-2022 Cholesterol in VLDL [Mass/Vol] 19 mg/dL [facility] Comprehensive Metabolic Pane heriberto 05-09-2022 Albumin [Mass/Vol] 3.434359 g/dL Normal 3.2-5.5 g/dL [employer] Other ALT [Catalytic activity/Vol] 41 U/L Normal 10-60 U/L [employer] Other Bilirubin [Mass/Vol] 0.6782445 mg/dL Normal 0.3- 1.2 mg/dL [employer] Other Calcium [Mass/Vol] 9.0828623 mg/dL Normal 8.2-10 .2 mg/dL [employer] Other CO2 [Moles/Vol] 30.39971505 mmol/L High 22.0-3 0.0 mmol/L [employer] Other Creatinine [Mass/Vol] 1.06557039 mg/dL High 0. 44-1.03 mg/dL [employer] Other Potassium [Moles/Vol] 4.44642395 mmol/L Normal 3 .5-5.1 mmol/L [employer] Other Protein [Mass/Vol] 7.747233 g/dL Normal 6.1-7.9 g/dL [employer] Other Comprehensive Metabolic Panel 45 [employer] Other Comprehensive Metabolic Panel 55 [employer] Other Comprehensive Metabolic Panel 4.2 g/dL [facility] Other Creatinine and Glomerular fi ltration rate.predicted panel (S/P/Bld)Ordered By: Peri Tyson on 05-09-2022 Creatinine [Mass/Vol] 1.20 mg/dL 0.44-1.03 [facility] Estimated glomerular filtrat ion rate (GFR) non- AmericanOrdered By: Peri Tyson on 05-09-2022 GFR/1.73 sq M.predicted among non-blacks MDRD (S/P/Bld) [Vol rate/Area] 45 mL/Min [facility] Globulin Calc (S) [Mass/Vol] Ordered By: Peri Tyson on 05-09-2022 Globulin (S) [Mass/Vol] 4.2 g/dL [facility] Lipid Panelon 05-09-2022 Cholesterol in LDL Elph Qn 85 mg/dL Normal 0-100 mg/dL [employer] Other Lipid Panel 96 mg/dL Normal 35-149 mg/dL [employer] Other Lipid Panel 19 mg/dL [employer] Other Microalbumin, Urine (Random) on 05-09-2022 Albumin DL <= 20 mg/L (U) [Mass/Vol] 0.0953268 mg/dL Normal 0.0-1.8 mg/dL [employer] Other No Panel InformationOrdered By: Peri Tyson on 05-09-2022 Estimated GFR () 55 mL/Min [facility] Comment on above: GFR estimated refere nce range: According to KDOQI guidelines, <60 ml/min/1.73m2 is sufficient to diagnose a patient with chronic kidney disease. Pharmacy Creatinine Clearance (Chem N/A [facility] Protein [Mass/volume] in Ser um or PlasmaOrdered By: Peri Tyson on 05-09-2022 Protein [Mass/Vol] 7.6 g/dL 6.1-7.9 [facility] Serum or plasma alanine borden otransferase measurement without P-5'-P (enzymatic activiOrdered By: Peri Tyson on 05-09-2022 ALT No additional P-5'-P [Catalytic activity/Vol] 41 U/L 10-60 [facility] Serum or plasma albumin/glob ulin mass ratioOrdered By: Peri Tyson on 05-09-2022 Albumin/Globulin [Mass ratio] 0.8 {ratio} [facility] Serum or plasma alkaline mo sphatase measurement (enzymatic activity/volume)Ordered By: Peri Tyson on 05-09-2022 ALP [Catalytic activity/Vol] 137 U/L High 32-92 U/L [facility] Serum or plasma anion gap de terminationOrdered By: Peri Tyson on 05-09-2022 Anion gap [Moles/Vol] 13.1 mmol/L 6.0-15.0 [facility] Serum or plasma aspartate am inotransferase measurement (enzymatic activity/volume)Ordered By: Peri Tyson on 05-09-2022 AST [Catalytic activity/Vol] 49 U/L High 10-42 U/L [facility] Serum or plasma calcium monique urement (mass/volume)Ordered By: Peri Tyson on 05-09-2022 Calcium [Mass/Vol] 9.5 mg/dL 8.2-10.2 [facility] Serum or plasma chloride janeth surement (moles/volume)Ordered By: Peri Tyson on 05-09-2022 Chloride [Moles/Vol] 98 mmol/L Normal 95-114 mmol/L [facility] Serum or plasma glucose monique urement (mass/volume)Ordered By: Peri Tyson on 05-09-2022 Glucose [Mass/Vol] 186 mg/dL High 70-100 mg/dL [facility] Comment on above: ADA recommended refe rence rangeRandom Glucose Reference Range is dependent on time and content of last meal. Glucose of more than 200 mg/dL in a nonstressed, ambulatory subject supports the diagnosis of Diabetes Mellitus. Serum or plasma high density lipoprotein (HDL) cholesterol measurementOrdered By: Peri Tyson on 05-09-2022 Cholesterol in HDL [Mass/Vol] 45 mg/dL Normal 35-85 mg/dL [facility] Comment on above: HDL CHOL ATP-III CLA SSIFICATION Cardiovascular RiskHDL > or equal to 60 mg/dL LOWHDL < 40 mg/dL HIGH Serum or plasma potassium me asurement (moles/volume)Ordered By: Peri Tyson on 05-09-2022 Potassium [Moles/Vol] 4.0 mmol/L 3.5-5.1 [facility] Serum or plasma sodium measu rement (moles/volume)Ordered By: Peri Tyson on 05-09-2022 Sodium [Moles/Vol] 138 mmol/L Normal 136-146 mmol/L [facility] Serum or plasma total biliru bin measurement (mass/volume)Ordered By: Peri Tyson on 05-09-2022 Bilirubin [Mass/Vol] 0.4 mg/dL 0.3-1.2 [facility] Serum or plasma total carbon dioxide measurement (moles/volume)Ordered By: Peri Tyson on 05-09-2022 CO2 [Moles/Vol] 30.9 mmol/L 22.0-30.0 [facility] Serum or plasma total choles terol/high density lipoprotein (HDL) cholesterol mass ratOrdered By: Peri Tyson on 05-09-2022 Cholesterol.total/Shahla sterol in HDL [Mass ratio] 3.3 {ratio} <5.0 [facility] Serum or plasma urea nitroge n measurement (mass/volume)Ordered By: Peri Tyson on 05-09-2022 Urea nitrogen [Mass/Vol] 11 mg/dL Normal 9-23 mg/dL [facility] TSH DL <= 0.005 mIU/L QnOrde red By: Peri Tyson on 05-09-2022 TSH Qn 2.51 m[IU]/L 0.45-5.33 [facility] Thyroid Stim Hormone w/Rflxo n 05-09-2022 Thyroid Stim Hormone w/Rflx 2.51 u[iU]/mL Normal 0.45-5.33 u[iU]/mL [employer] Other Triglyceride [Mass/volume] i n Serum or PlasmaOrdered By: Peri Tyson on 05-09-2022 Triglyceride [Mass/Vol] 96 mg/dL 35-149 [facility] Comment on above: TRIG ATP III CLASSIF [...] 20 mg/L (U) [Mass/Vol] 0.6 mg/dL 0.0-1.8 [facility] A1C HEMOGLOBINon 05-07-2022 HbA1c (Bld) [Mass fraction] 7.6 % [employer] Other HbA1c (Bld) [Mass fraction]o n 05-07-2022 A1C HEMOGLOBIN [facility] [employer] Other Albumin [Mass/volume] in Ser um or PlasmaOrdered By: Roxane Bills on 04-17-2022 Albumin [Mass/Vol] 3.2 g/dL 3.2-5.5 [facility] Albumin [Mass/Vol] 3.4 g/dL 2.9-4.4 [facility] Basophils Auto (Bld) [#/Vol] Ordered By: Roxane Bills on 04-17-2022 Basophils (Bld) [#/Vol] 0.1 10*3/uL 0.0-0.2 [facility] Basophils/100 WBC Auto (Bld) Ordered By: Roxane Bills on 04-17-2022 Basophils/100 WBC (Bld) 0.5 % . [facility] CT biopsyOrdered By: Roxane Garibay se on 04-17-2022 Transferrin [Mass/Vol] 247 mg/dL 180-380 [facility] Creatinine and Glomerular fi ltration rate.predicted panel (S/P/Bld)Ordered By: Roxane Bills on 04-17-2022 Creatinine [Mass/Vol] 1.26 mg/dL 0.44-1.03 [facility] Eosinophils Auto (Bld) [#/Vo l]Ordered By: Roxane Bills on 04-17-2022 Eosinophils (Bld) [#/Vol] 0.6 10*3/uL 0.0-0.45 [facility] Eosinophils/100 WBC Auto (Bl d)Ordered By: Roxane Bills on 04-17-2022 Eosinophils/100 WBC (Bld) 5.9 % . [facility] Erythrocyte distribution wid th Auto (RBC) [Ratio]Ordered By: Roxane Bills on 04-17-2022 Erythrocyte distribution width (RBC) [Ratio] 15.7 % 11.9-15.3 [facility] Estimated glomerular filtrat ion rate (GFR) non- AmericanOrdered By: Roxane Bills on 04-17-2022 GFR/1.73 sq M.predicted among non-blacks MDRD (S/P/Bld) [Vol rate/Area] 43 mL/Min [facility] Ferritin [Mass/volume] in Se rum or PlasmaOrdered By: Roxane Bills on 04-17-2022 Ferritin [Mass/Vol] 72.6 ng/mL 11-306.8 [facility] Globulin Calc (S) [Mass/Vol] Ordered By: Roxane Bills on 04-17-2022 Globulin (S) [Mass/Vol] 3.8 g/dL [facility] Hematocrit Auto (Bld) [Volum e fraction]Ordered By: Roxane Bills on 04-17-2022 Hematocrit (Bld) [Volume fraction] 35.4 % 34.0-46.4 [facility] Hemoglobin [Mass/volume] in BloodOrdered By: Roxane Bills on 04-17-2022 Hemoglobin (Bld) [Mass/Vol] 11.2 g/dL 11.8-15.4 [facility] IgA [Mass/volume] in Serum o r PlasmaOrdered By: Roxane Bills on 04-17-2022 IgA [Mass/Vol] 625 mg/dL 87-352 [facility] IgG [Mass/volume] in Serum o r PlasmaOrdered By: Roxane Bills on 04-17-2022 IgG [Mass/Vol] 1443 mg/dL 586-1602 [facility] IgM [Mass/volume] in Serum o r PlasmaOrdered By: Roxane Bills on 04-17-2022 IgM [Mass/Vol] 98 mg/dL 26-217 [facility] Comment on above: Performed at: [employer] [address] [id number] Director: Jhoan Rich PhD, Phone: [phone] Immunoglobulin light chains. kappa.free [Mass/volume] in SerumOrdered By: Roxane Bills on 04-17-2022 Immunoglobulin light chains.kappa.free (S) [Mass/Vol] 162.6 mg/L 3.3-19.4 [facility] Immunoglobulin light chains. kappa.free/Immunoglobulin light chains.lambda.free [MassOrdered By: Roxane Bills on 04-17-2022 Immunoglobulin light chains.kappa.free/Immun oglobulin light chains.lambda.free (S) [Mass ratio] 3.65 0.26-1.65 [facility] Comment on above: Performed at: [employer] [id number] Director: Jhoan Rich PhD, Phone: [phone] Immunoglobulin light chains. lambda.free [Mass/volume] in Serum or PlasmaOrdered By: Roxane Bills on 04-17-2022 Immunoglobulin light chains.lambda.free [Mass/Vol] 44.5 mg/L 5.7-26.3 [facility] Iron [Mass/volume] in Serum or PlasmaOrdered By: Roxane Bills on 04-17-2022 Iron [Mass/Vol] 53 ug/dL 40-150 [facility] Iron binding capacity [Mass/ volume] in Serum or PlasmaOrdered By: Roxane Bills on 04-17-2022 Iron binding capacity [Mass/Vol] 346 ug/dL 255-450 [facility] Iron saturation [Mass Fracti on] in Serum or PlasmaOrdered By: Roxane Bills on 04-17-2022 Iron saturation [Mass fraction] 15.3 % 20-50 [facility] Laboratory - Chemistry and C hemistry - challengeOrdered By: Roxane Bills on 04-17-2022 Protein [Mass/Vol] 0.4 g/dL Not Observed [facility] Leukocytes [#/volume] correc shan for nucleated erythrocytes in Blood by Automated counOrdered By: Roxane Bills on 04-17-2022 WBC corrected for nucl RBC Auto (Bld) [#/Vol] 10.8 10*3/uL 3.8-11.6 [facility] Lymphocytes Auto (Bld) [#/Vo l]Ordered By: Roxane Bills on 04-17-2022 Lymphocytes (Bld) [#/Vol] 2.6 10*3/uL 1.00-4.8 [facility] Lymphocytes/100 WBC Auto (Bl d)Ordered By: Roxane Bills on 04-17-2022 Lymphocytes/100 WBC (Bld) 24.5 % . [facility] MCH Auto (RBC) [Entitic mass ]Ordered By: Roxane Bills on 04-17-2022 MCH (RBC) [Entitic mass] 27.9 pg 24.7-34.3 [facility] MCHC Auto (RBC) [Mass/Vol]Or dered By: Roxane Bills on 04-17-2022 MCHC (RBC) [Mass/Vol] 31.6 g/dL 32.0-35.0 [facility] MCV Auto (RBC) [Entitic vol] Ordered By: Roxane Bills on 04-17-2022 MCV (RBC) [Entitic vol] 88.1 fL 80-100 [facility] Monocytes Auto (Bld) [#/Vol] Ordered By: Roxane Bills on 04-17-2022 Monocytes (Bld) [#/Vol] 0.8 10*3/uL 0.0-0.8 [facility] Monocytes/100 WBC Auto (Bld) Ordered By: Roxane Bills on 04-17-2022 Monocytes/100 WBC (Bld) 7.9 % . [facility] Neutrophils Auto (Bld) [#/Vo l]Ordered By: Roxane Bills on 04-17-2022 Neutrophils (Bld) [#/Vol] 6.6 10*3/uL 1.8-7.7 [facility] Neutrophils/100 WBC Auto (Bl d)Ordered By: Roxane Bills on 04-17-2022 Neutrophils/100 WBC (Bld) 61.2 % . [facility] No Panel InformationOrdered By: Roxane Bills on 04-17-2022 Estimated GFR () 52 mL/Min [facility] Comment on above: GFR estimated refere nce range: According to KDOQI guidelines, <60 ml/min/1.73m2 is sufficient to diagnose a patient with chronic kidney disease. Pharmacy Creatinine Clearance (Chem 51.63 [facility] Protein Electrophoresis Note See comment . [facility] Comment on above: Protein electrophore sis scan will follow via computer,mail, or dramatic critic delivery.Performed at: [facility] [id number] Director: Jhoan Rich PhD, Phone: [phone] Nucleated erythrocytes [Pres ence] in Blood by Automated countOrdered By: Roxane Bills on 04-17-2022 Nucleated RBC Auto Ql (Bld) 0.2 /100{WBC} 0-0.5 [facility] Platelet mean volume Auto (B ld) [Entitic vol]Ordered By: Roxane Bills on 04-17-2022 Platelet mean volume (Bld) [Entitic vol] 7.6 fL 6.3-10.7 [facility] Platelets Auto (Bld) [#/Vol] Ordered By: Roxane Bills on 04-17-2022 Platelets (Bld) [#/Vol] 273 10*3/uL 150-450 [facility] Protein [Mass/volume] in Ser um or PlasmaOrdered By: Roxane Bills on 04-17-2022 Protein [Mass/Vol] 7.0 g/dL 6.1-7.9 [facility] Protein [Mass/Vol] 7.3 g/dL 6.0-8.5 [facility] RBC Auto (Bld) [#/Vol]Ordere d By: Roxane Bills on 04-17-2022 RBC (Bld) [#/Vol] 4.02 10*6/uL 3.60-5.00 [facility] Serum globulin measurement ( mass/volume)Ordered By: Roxane Bills on 04-17-2022 Globulin (S) [Mass/Vol] 3.9 g/dL 2.2-3.9 [facility] Serum or plasma alanine borden otransferase measurement without P-5'-P (enzymatic activiOrdered By: Roxane Bills on 04-17-2022 ALT No additional P-5'-P [Catalytic activity/Vol] 22 U/L 10-60 [facility] Serum or plasma albumin/glob ulin mass ratioOrdered By: Roxane Bills on 04-17-2022 Albumin/Globulin [Mass ratio] 0.8 {ratio} [facility] Albumin/Globulin [Mass ratio] 0.9 {ratio} 0.7-1.7 [facility] Serum or plasma alkaline mo sphatase measurement (enzymatic activity/volume)Ordered By: Roxane Bills on 04-17-2022 ALP [Catalytic activity/Vol] 121 U/L 32-92 [facility] Serum or plasma alpha 1 glob ulin measurement by electrophoresis (mass/volume)Ordered By: Roxane Bills on 04-17-2022 Alpha 1 globulin Elph [Mass/Vol] 0.3 g/dL 0.0-0.4 [facility] Serum or plasma alpha 2 glob ulin measurement by electrophoresis (mass/volume)Ordered By: Roxane Bills on 04-17-2022 Alpha 2 globulin Elph [Mass/Vol] 0.9 g/dL 0.4-1.0 [facility] Serum or plasma anion gap de terminationOrdered By: Roxane Bills on 04-17-2022 Anion gap [Moles/Vol] 12.8 mmol/L 6.0-15.0 [facility] Serum or plasma aspartate am inotransferase measurement (enzymatic activity/volume)Ordered By: Roxane Bills on 04-17-2022 AST [Catalytic activity/Vol] 23 U/L 10-42 [facility] Serum or plasma beta globuli n measurement by electrophoresis (mass/volume)Ordered By: Roxane Bills on 04-17-2022 Beta globulin Elph [Mass/Vol] 1.4 g/dL 0.7-1.3 [facility] Serum or plasma calcium monique urement (mass/volume)Ordered By: Roxane Bills on 04-17-2022 Calcium [Mass/Vol] 9.1 mg/dL 8.2-10.2 [facility] Serum or plasma chloride janeth surement (moles/volume)Ordered By: Roxane Bills on 04-17-2022 Chloride [Moles/Vol] 98 mmol/L 95-114 [facility] Serum or plasma gamma globul in measurement by electrophoresis (mass/volume)Ordered By: Roxane Bills on 04-17-2022 Gamma globulin Elph [Mass/Vol] 1.3 g/dL 0.4-1.8 [facility] Serum or plasma glucose monique urement (mass/volume)Ordered By: Roxane Bills on 04-17-2022 Glucose [Mass/Vol] 269 mg/dL 70-100 [facility] Comment on above: ADA recommended refe rence rangeRandom Glucose Reference Range is dependent on time and content of last meal. Glucose of more than 200 mg/dL in a nonstressed, ambulatory subject supports the diagnosis of Diabetes Mellitus. Serum or plasma potassium me asurement (moles/volume)Ordered By: Roxane Bills on 04-17-2022 Potassium [Moles/Vol] 3.5 mmol/L 3.5-5.1 [facility] Serum or plasma sodium measu rement (moles/volume)Ordered By: Roxane Bills on 04-17-2022 Sodium [Moles/Vol] 138 mmol/L 136-146 [facility] Serum or plasma total biliru bin measurement (mass/volume)Ordered By: Roxane Bills on 04-17-2022 Bilirubin [Mass/Vol] 0.3 mg/dL 0.3-1.2 [facility] Serum or plasma total carbon dioxide measurement (moles/volume)Ordered By: Roxane Bilsl on 04-17-2022 CO2 [Moles/Vol] 30.7 mmol/L 22.0-30.0 [facility] Serum or plasma urea nitroge n measurement (mass/volume)Ordered By: Roxane Bills on 04-17-2022 Urea nitrogen [Mass/Vol] 17 mg/dL 9-23 [facility] WBC Auto (Bld) [#/Vol]Ordere d By: Roxane Bills on 04-17-2022 WBC (Bld) [#/Vol] 10.8 10*3/uL 3.8-11.6 [facility] Urine culture routineOrdered By: Peri Tyson on 02-05-2022 Bacteria identified Cx Nom (U) Strep. agalactiae Grp B [facility] A1C HEMOGLOBINon 02-03-2022 HbA1c (Bld) [Mass fraction] 7.0 % [facility] Other Urinalysis - AUTOMATEDon Appearance (U) cloudy [employer] Other Bilirubin Ql (U) Negative [employer] Other Color (U) yellow [employer] Other Glucose Ql (U) 500 [employer] Other Hemoglobin Ql (U) Negative [employer] Other Ketones Ql (U) Negative [employer] Other Leukocyte esterase Test strip Ql (U) small [employer] Other Nitrite Ql (U) Negative [employer] Other pH (U) 5.5 [pH] [employer] Other Protein Ql (U) Negative [employer] Other Specific gravity (U) [Rel density] 1.010 [employer] Other Urobilinogen (U) [Mass/Vol] 0.2 mg/dL [employer] Other Urinalysis - AUTOMATED No [facility] [employer] Other Urine culture routineOrdered By: Peri Tyson on 02-03-2022 Bacteria identified Cx Nom (U) Strep. agalactiae Grp B [facility] Urine culture routineOrdered By: Peri Tyson on 12-25-2021 Bacteria identified Cx Nom (U) Strep. agalactiae Grp B [facility] Drugs identified in UrineOrd ered By: Peri Tyson on 12-23-2021 Drugs identified Nom (U) Final . [facility] Comment on above: ======TOXASSURE COMP DRUG [...] clinical consultation, please call . Performed at: [facility] [address] [id number] Director: Tomasa Alegria [facility], Phone: [phone] Urinalysis - AUTOMATEDon Appearance (U) clear [employer] Other Bilirubin Ql (U) Negative [employer] Other Color (U) yellow [employer] Other Glucose Ql (U) 1000 [employer] Other Hemoglobin Ql (U) Negative [employer] Other Ketones Ql (U) Negative [employer] Other Leukocyte esterase Test strip Ql (U) trace [employer] Other Nitrite Ql (U) Negative [employer] Other pH (U) 7.0 [pH] [employer] Other Protein Ql (U) Negative [employer] Other Specific gravity (U) [Rel density] 1.010 [employer] Other Urobilinogen (U) [Mass/Vol] 0.2 mg/dL [employer] Other Urinalysis - AUTOMATED No rt [facility] Other CT biopsyOrdered By: Roxane Garibay se on 10-23-2021 Transferrin [Mass/Vol] 290 mg/dL 180-380 [facility] Ferritin [Mass/volume] in Se rum or PlasmaOrdered By: Roxane Bills on 10-23-2021 Ferritin [Mass/Vol] 76.6 ng/mL 11-306.8 [facility] Iron [Mass/volume] in Serum or PlasmaOrdered By: Roxane Bills on 10-23-2021 Iron [Mass/Vol] 64 ug/dL 40-150 [facility] Iron binding capacity [Mass/ volume] in Serum or PlasmaOrdered By: Roxane Bills on 10-23-2021 Iron binding capacity [Mass/Vol] 406 ug/dL 255-450 [facility] Iron saturation [Mass Fracti on] in Serum or PlasmaOrdered By: Roxane Bills on 10-23-2021 Iron saturation [Mass fraction] 15.0 % 20-50 [facility] A1C HEMOGLOBINon 10-21-2021 HbA1c (Bld) [Mass fraction] 7.2 % [employer] Other Basic Metabolic PanelOrdered By: Laureen Moreno on 10-21-2021 Chloride [Moles/Vol] 100 mmol/L 95-114 [facility] Glucose [Mass/Vol] 268 mg/dL 70-100 [facility] Comment on above: ADA recommended refe rence range Random Glucose Reference Range is dependent on time and content of last meal. Glucose of more than 200 mg/dL in a nonstressed, ambulatory subject supports the diagnosis of Diabetes Mellitus. Sodium [Moles/Vol] 139 mmol/L 136-146 [facility] Urea nitrogen [Mass/Vol] 18 mg/dL 9-23 [facility] Basic Metabolic Panelon 10-11 Calcium [Mass/Vol] 9.3369093 mg/dL Normal 8.2-10 .2 mg/dL [employer] Other CO2 [Moles/Vol] 29.53246313 mmol/L Normal 22.0-3 0.0 mmol/L [employer] Other Creatinine [Mass/Vol] 1.96697224 mg/dL High 0. 44-1.03 mg/dL [facility] Other Potassium [Moles/Vol] 4.81530367 mmol/L Normal 3 .5-5.1 mmol/L [facility] Other Basic Metabolic Panel 33 [facility] Other Creatinine and Glomerular fi ltration rate.predicted panel (S/P/Bld)Ordered By: Laureen Moreno on 10-21-2021 Creatinine [Mass/Vol] 1.57 mg/dL 0.44-1.03 [facility] Estimated glomerular filtrat ion rate (GFR) non- AmericanOrdered By: Laureen Moreno on 10-21-2021 GFR/1.73 sq M.predicted among non-blacks MDRD (S/P/Bld) [Vol rate/Area] 33 mL/Min [facility] HbA1c (Bld) [Mass fraction]o n 10-21-2021 A1C HEMOGLOBIN [facility] Other No Panel InformationOrdered By: Laureen Moreno on 10-21-2021 Estimated GFR () 40 mL/Min [facility] Comment on above: GFR estimated refere nce range: According to KDOQI guidelines, <60 ml/min/1.73m2 is sufficient to diagnose a patient with chronic kidney disease. Pharmacy Creatinine Clearance (Chem N/A [facility] Serum or plasma calcium monique urement (mass/volume)Ordered By: Laureen Moreno on 10-21-2021 Calcium [Mass/Vol] 9.6 mg/dL 8.2-10.2 [facility] Serum or plasma potassium me asurement (moles/volume)Ordered By: Laureen Moreno on 10-21-2021 Potassium [Moles/Vol] 4.7 mmol/L 3.5-5.1 [facility] Serum or plasma total carbon dioxide measurement (moles/volume)Ordered By: Laureen Moreno on 10-21-2021 CO2 [Moles/Vol] 29.0 mmol/L 22.0-30.0 [facility] Activated partial thrombopla stin time (aPTT) in platelet poor plasma by coagulation aOrdered By: Roxane Bills on 09-26-2021 aPTT Coag (PPP) [Time] 33.0 s 25.1-36.5 Fi [facility] Basophils Auto (Bld) [#/Vol] Ordered By: Roxane Bills on 09-26-2021 Basophils (Bld) [#/Vol] 0.1 10*3/uL 0.0-0.2 [facility] Basophils/100 WBC Auto (Bld) Ordered By: Roxane Bills on 09-26-2021 Basophils/100 WBC (Bld) 0.5 % . [facility] Blood hemoglobin measurement (mass/volume)Ordered By: Roxane Bills on 09-26-2021 Hemoglobin (Bld) [Mass/Vol] 11.4 g/dL 11.8-15.4 [facility] Blood leukocytes automated c ount (number/volume)Ordered By: Roxane Bills on 09-26-2021 WBC (Bld) [#/Vol] 11.1 10*3/uL 4.5-11.0 [facility] Eosinophils Auto (Bld) [#/Vo l]Ordered By: Roxane Bills on 09-26-2021 Eosinophils (Bld) [#/Vol] 0.8 10*3/uL 0.0-0.45 [facility] Eosinophils/100 WBC Auto (Bl d)Ordered By: Roxane Bills on 09-26-2021 Eosinophils/100 WBC (Bld) 7.7 % . [facility] Erythrocyte distribution wid th Auto (RBC) [Ratio]Ordered By: Roxane Bills on 09-26-2021 Erythrocyte distribution width (RBC) [Ratio] 14.5 % 11.9-15.3 [facility] Hematocrit Auto (Bld) [Volum e fraction]Ordered By: Roxane Bills on 09-26-2021 Hematocrit (Bld) [Volume fraction] 35.3 % 34.0-46.4 [facility] Laboratory - CoagulationOrde red By: Roxane Bills on 09-26-2021 PT Coag (PPP) [Time] 13.9 s 9.0-12.9 [facility] Laboratory - Hematology and Cell countsOrdered By: Roxane Bills on 09-26-2021 Nucleated RBC/100 WBC (Bld) [Ratio] 0.1 % 0-0.5 [facility] Lymphocytes Auto (Bld) [#/Vo l]Ordered By: Roxane Bills on 09-26-2021 Lymphocytes (Bld) [#/Vol] 2.4 10*3/uL 1.00-4.8 [facility] Lymphocytes/100 WBC Auto (Bl d)Ordered By: Roxane Bills on 09-26-2021 Lymphocytes/100 WBC (Bld) 21.6 % . [facility] MCH Auto (RBC) [Entitic mass ]Ordered By: Roxane Bills on 09-26-2021 MCH (RBC) [Entitic mass] 28.3 pg 24.7-34.3 [facility] MCHC Auto (RBC) [Mass/Vol]Or dered By: Roxane Bills on 09-26-2021 MCHC (RBC) [Mass/Vol] 32.1 g/dL 32.0-35.0 [facility] MCV Auto (RBC) [Entitic vol] Ordered By: Roxane Bills on 09-26-2021 MCV (RBC) [Entitic vol] 88.0 fL 80-100 [facility] Monocytes Auto (Bld) [#/Vol] Ordered By: Roxane Bills on 09-26-2021 Monocytes (Bld) [#/Vol] 0.9 10*3/uL 0.0-0.8 [facility] Monocytes/100 WBC Auto (Bld) Ordered By: Roxane Bills on 09-26-2021 Monocytes/100 WBC (Bld) 7.8 % . [facility] Neutrophils Auto (Bld) [#/Vo l]Ordered By: Roxane Bills on 09-26-2021 Neutrophils (Bld) [#/Vol] 6.9 10*3/uL 1.8-7.7 [facility] Neutrophils/100 WBC Auto (Bl d)Ordered By: Roxane Bills on 09-26-2021 Neutrophils/100 WBC (Bld) 62.4 % . [facility] Platelet mean volume Auto (B ld) [Entitic vol]Ordered By: Roxane Bills on 09-26-2021 Platelet mean volume (Bld) [Entitic vol] 7.5 fL 6.3-10.7 [facility] Platelet poor plasma interna tional normalized ratio (INR) by coagulation assay (relatOrdered By: Roxane Bills on 09-26-2021 INR Coag (PPP) [Relative time] 1.2 {INR} [facility] Comment on above: INR Therapeutic Rang [...] 09-26-2021 Platelets (Bld) [#/Vol] 302 10*3/uL 150-450 [facility] RBC Auto (Bld) [#/Vol]Ordere d By: Roxane Bills on 09-26-2021 RBC (Bld) [#/Vol] 4.01 10*6/uL 3.60-5.00 [facility] Albumin/Protein.total in 24 hour Urine by ElectrophoresisOrdered By: Roxane Bills on 08-16-2021 Albumin Elph (24H U) [Mass fraction] 27.8 % . [facility] Creatinine [Mass/volume] in UrineOrdered By: Roxane Bills on 08-16-2021 Creatinine (U) [Mass/Vol] 35.9 mg/dL [facility] Comment on above: No reference range e stablished Gamma globulin/Protein.total in 24 hour Urine by ElectrophoresisOrdered By: Roxane Bills on 08-16-2021 Gamma globulin Elph (24H U) [Mass fraction] 24.3 % . [facility] Immunofixation for UrineOrde red By: Roxane Bills on 08-16-2021 Interpretation Immunofixation (U) [Interp] See comment . [facility] Comment on above: No monoclonality det ected. Performed at: [facility] [id number] [employer] Manager: Jhoan Rich PhD, Phone: [phone] No monoclonality det ected.Performed at: [facility] [id number] Director: Jhoan Rich PhD, Phone: [phone] Immunoglobulin light chains. kappa.free [Mass/volume] in SerumOrdered By: Roxane Bills on 08-16-2021 Immunoglobulin light chains.kappa.free (S) [Mass/Vol] 73.6 mg/L 3.3-19.4 [facility] Immunoglobulin light chains. kappa.free/Immunoglobulin light chains.lambda.free [MassOrdered By: Roxane Bills on 08-16-2021 Immunoglobulin light chains.kappa.free/Immun oglobulin light chains.lambda.free (S) [Mass ratio] 2.52 0.26-1.65 [facility] Comment on above: Performed at: [address] [id number] [employer] Manager: Jhoan Rich PhD, Phone: [phone] Immunoglobulin light chains. lambda.free [Mass/volume] in Serum or PlasmaOrdered By: Roxane Bills on 08-16-2021 Immunoglobulin light chains.lambda.free [Mass/Vol] 29.2 mg/L 5.7-26.3 [facility] No Panel InformationOrdered By: Roxane Bills on 08-16-2021 Urine Random Prot Electrophor Note See comment . [facility] Comment on above: Protein electrophore sis scan will follow via computer, mail, or dramatic critic delivery. Protein electrophoresis scan will follow via computer, mail, or dramatic critic delivery. Performed at: [employer] [id number] [employer] Manager: Jhoan Rich PhD, Phone: [phone] --- 08/20/21 5679 --- Please Note: previously reported as: Protein electrophoresis scan will follow via computer, mail, or dramatic critic delivery. Protein electrophore sis scan will follow via computer,mail, or dramatic critic delivery. Protein electrophoresis scan will follow via computer,mail, or dramatic critic delivery.Performed at: [facility] [id number] [place], [place] [id number] Director: Jhoan Rich PhD, Phone: [phone] --- 08/20/21 5937 ---Please Note: previously reported as: Protein electrophoresis scan will follow via computer,mail, or dramatic critic delivery. Protein [Mass/volume] in Uri neOrdered By: Roxane Bills on 08-16-2021 Protein (U) [Mass/Vol] 4.8 mg/dL Not Estab. [facility] Protein.monoclonal/Protein.t otal in 24 hour Urine by ElectrophoresisOrdered By: Roxane Bills on 08-16-2021 Protein.monoclonal Elph (24H U) [Mass fraction] Not observed % Not Observed [facility] Serum or plasma hiwe-4-vyfwa globulin measurement (mass/volume)Ordered By: Roxane Bills on 08-16-2021 Idat-4-Rczeofdvalqhz [Mass/Vol] 4.9 ug/mL 0.6-2.4 [facility] Comment on above: Siemens Immulite 200 0 Immunochemiluminometric assay (ICMA) Values obtained with different assay methods or kits cannot be used interchangeably. Results cannot be interpreted as absolute evidence of the presence or absence of malignant disease. Performed at: [address] [id number] [employer] Manager: Betty Bah MD, Phone: [phone] Siemens Immulite 200 0 Immunochemiluminometric assay (ICMA)Values obtained with different assay methods or kits cannotbe used interchangeably. Results cannot be interpreted asabsolute evidence of the presence or absence of malignantdisease.Performed at: [facility] [employer] [id number] Director: Betty Bah MD, Phone: [phone] Urine alpha 1 globulin/total protein by electrophoresisOrdered By: Roxane Bills on 08-16-2021 Alpha 1 globulin Elph (U) [Mass fraction] 3.9 % . [facility] Urine alpha 2 globulin/total protein ratio by electrophoresisOrdered By: Roxane Bills on 08-16-2021 Alpha 2 globulin Elph (U) [Mass fraction] 11.3 % . [facility] Urine beta globulin measurem ent by electrophoresis (mass/volume)Ordered By: Roxane Bills on 08-16-2021 Beta globulin Elph (U) [Mass/Vol] 32.8 % . [facility] A1C HEMOGLOBINon 05-23-2021 HbA1c (Bld) [Mass fraction] 6.7 % [employer] Other HbA1c (Bld) [Mass fraction]o n 05-23-2021 A1C HEMOGLOBIN [facility] Other Thyroid Stim Hormone w/Rflxo n 04-02-2021 Thyroid Stim Hormone w/Rflx 3.31 0.45-5.33 [facility] Other Vital Signs Date Time Vital Sign Value Performing Clinician Faci lity 05-27-2023 09:16-0500 Body height 152.4 cm DO Noomopher [employer] Work Phone: [facility] 05-27-2023 09:16-0500 Body mass index (BMI) [Ratio] 48.8 kg/m2 DO Christopher Germain Work Phone: [facility] 05-27-2023 09:16-0500 Body temperature 96.4 [degF] DO Christopher Germain Work Phone: [facility] 05-27-2023 09:16-0500 Body weight 113.39 kg DO Christopher Germain Work Phone: [facility] 05-27-2023 09:16-0500 Diastolic blood pressure 70 mm[Hg] DO Christopher Germain Work Phone: [facility] 05-27-2023 09:16-0500 Heart rate 74 /min DO Christopher Germain Work Phone: [facility] 05-27-2023 09:16-0500 SaO2% (BldA) [Mass fraction] 98 % DO Christopher Germain Work Phone: [facility] 05-27-2023 09:16-0500 Systolic blood pressure 124 mm[Hg] DO Christopher Germain Work Phone: [facility] 05-12-2023 08:28-0500 Body height 152.4 cm DO Christopher Germain Work Phone: [facility] 05-12-2023 08:28-0500 Body mass index (BMI) [Ratio] 48.8 kg/m2 DO Christopher Germain Work Phone: [facility] 05-12-2023 08:28-0500 Body weight 113.39 kg DO Christopher Germain Work Phone: [facility] 05-12-2023 08:17-0500 Body temperature 97.3 [degF] DO Peri Tyson Work Phone: [facility] 05-12-2023 08:17-0500 Diastolic blood pressure 85 mm[Hg] DO Peri Tyson Work Phone: [facility] 05-12-2023 08:17-0500 Heart rate 114 /min DO Peri Tyson Work Phone: [facility] 05-12-2023 08:17-0500 Respiratory rate 18 /min DO Peri Tyson Work Phone: [facility] 05-12-2023 08:17-0500 Systolic blood pressure 189 mm[Hg] DO Peri Tyson Work Phone: [facility] 04-28-2023 09:09-0500 Body height 152.4 cm DO Peri Tyson Work Phone: [facility] 04-28-2023 09:09-0500 Body mass index (BMI) [Ratio] 48.8 kg/m2 DO Peri Tyson Work Phone: [facility] 04-28-2023 09:09-0500 Body weight 113.39 kg DO Peri Tyson Work Phone: [facility] 04-28-2023 08:50-0500 Body temperature 97 [degF] DO Peri Tyson Work Phone: [facility] 04-28-2023 08:50-0500 Diastolic blood pressure 82 mm[Hg] DO Peri Tyson Work Phone: [facility] 04-28-2023 08:50-0500 Heart rate 106 /min DO Peri Tyson Work Phone: [facility] 04-28-2023 08:50-0500 Inhaled oxygen flow rate 4 L/min DO Peri Tyson Work Phone: [facility] 04-28-2023 08:50-0500 Respiratory rate 20 /min DO Peri Tyson Work Phone: [facility] 04-28-2023 08:50-0500 Systolic blood pressure 138 mm[Hg] DO Peri Tyson Work Phone: [facility] 03-04-2023 13:28-0500 Body temperature 97.6 [degF] DO Peri Tyson Work Phone: [facility] 03-04-2023 13:28-0500 Body weight 110.22 kg DO Peri Tyson Work Phone: [facility] 03-04-2023 13:28-0500 Diastolic blood pressure 89 mm[Hg] DO Peri Tyson Work Phone: [facility] 03-04-2023 13:28-0500 Heart rate 87 /min DO Peri Tyson Work Phone: [facility] 03-04-2023 13:28-0500 Inhaled oxygen flow rate 4 L/min DO Peri Tyson Work Phone: [facility] 03-04-2023 13:28-0500 Respiratory rate 16 /min DO Peri Tyson Work Phone: [facility] 03-04-2023 13:28-0500 SaO2% (BldA) [Mass fraction] 97 % DO Peri Tyson Work Phone: [facility] 03-04-2023 13:28-0500 Systolic blood pressure 172 mm[Hg] DO Peri Tyson Work Phone: [facility] 02-12-2023 10:15-0400 Diastolic blood pressure 88 mm[Hg] DO Peri Tyson Work Phone: [facility] 02-12-2023 10:15-0400 Heart rate 77 /min DO Peri Tyson Work Phone: [facility] 02-12-2023 10:15-0400 Inhaled oxygen flow rate 4 L/min DO Peri Tyson Work Phone: [facility] 02-12-2023 10:15-0400 Respiratory rate 18 /min DO Peri Tyson Work Phone: [facility] 02-12-2023 10:15-0400 SaO2% (BldA) [Mass fraction] 97 % DO Peri Tyson Work Phone: [facility] 02-12-2023 10:15-0400 Systolic blood pressure 141 mm[Hg] DO Peri Tyson Work Phone: [facility] 02-12-2023 08:15-0400 Body height 152.4 cm DO Peri Tyson Work Phone: [facility] 02-12-2023 08:15-0400 Body weight 108.86 kg DO Peri Tyson Work Phone: [facility] 02-06-2023 09:00-0400 Body height 152.4 cm Peri Tyson Other [facility] Other 02-06-2023 09:00-0400 Body mass index (BMI) [Ratio] 48.43 kg/m2 Peri Tyson Other [employer] Other 02-06-2023 09:00-0400 Body weight 112.49 kg Periluis Tyson Other [facility] Other 02-06-2023 09:00-0400 Diastolic blood pressure 70 mm[Hg] Peri Marbella Other [employer] Other 02-06-2023 09:00-0400 Respiratory rate 20 /min Periroyce Tyson Other [employer] Other 02-06-2023 09:00-0400 SaO2% (BldA) [Mass fraction] 99 % Peri Tyson Other [employer] Other 02-06-2023 09:00-0400 Systolic blood pressure 138 mm[Hg] Peri Marbella Other [employer] Other 01-29-2023 08:55-0400 Body temperature 97.5 [degF] DO Peri Tyson Work Phone: [facility] 01-29-2023 08:55-0400 Body weight 112.94 kg DO Peri Tyson Work Phone: [facility] 01-29-2023 08:55-0400 Diastolic blood pressure 82 mm[Hg] DO Peri Tyson Work Phone: [facility] 01-29-2023 08:55-0400 Heart rate 82 /min DO Peri Tyson Work Phone: [facility] 01-29-2023 08:55-0400 Respiratory rate 16 /min DO Peri Tyson Work Phone: [facility] 01-29-2023 08:55-0400 SaO2% (BldA) [Mass fraction] 98 % DO Peri Marbella Work Phone: [facility] 01-29-2023 08:55-0400 Systolic blood pressure 132 mm[Hg] DO Peri Marbella Work Phone: [facility] 01-12-2023 08:00-0400 Body height 152.4 cm Patsy Blades Other [email or web address] [facility] Other 01-12-2023 08:00-0400 Body mass index (BMI) [Ratio] 47.84 kg/m2 Patsy Blades Other [employer] Other 01-12-2023 08:00-0400 Body weight 111.13 kg Patsy Blades Other [employer] Other 01-12-2023 08:00-0400 Diastolic blood pressure 102 mm[Hg] Patsy Blades Other [employer] Other 01-12-2023 08:00-0400 Systolic blood pressure 162 mm[Hg] Patsy Blades Other [employer] Other 12-18-2022 13:38-0400 Diastolic blood pressure 71 mm[Hg] DO Peri Marbella Work Phone: [facility] 12-18-2022 13:38-0400 Heart rate 77 /min DO Peri Marbella Work Phone: [facility] 12-18-2022 13:38-0400 Inhaled oxygen flow rate 4 L/min DO Peri Marbella Work Phone: [facility] 12-18-2022 13:38-0400 Respiratory rate 16 /min DO Peri Marbella Work Phone: [facility] 12-18-2022 13:38-0400 SaO2% (BldA) [Mass fraction] 97 % DO Peri Marbella Work Phone: [facility] 12-18-2022 13:38-0400 Systolic blood pressure 139 mm[Hg] DO Peri Marbella Work Phone: [facility] 12-18-2022 11:03-0400 Body height 152.4 cm DO Peri Marbella Work Phone: [facility] 12-18-2022 11:03-0400 Body mass index (BMI) [Ratio] 44.9 kg/m2 DO Peri Marbella Work Phone: [facility] 12-18-2022 11:03-0400 Body weight 104.32 kg DO Periluis Tyson Work Phone: [facility] 12-18-2022 09:34-0400 Body temperature 98.1 [degF] DO Periluis Tyson Work Phone: [facility] 09-16-2022 11:30-0400 Body height 152.4 cm Peri Tyson Other [employer] Other 09-16-2022 11:30-0400 Body mass index (BMI) [Ratio] 45.19 kg/m2 Peri Tyson Other [employer] Other 09-16-2022 11:30-0400 Body weight 104.96 kg Peri Marbella Other [employer] Other 09-16-2022 11:30-0400 Diastolic blood pressure 92 mm[Hg] Peri Tyson Other [employer] Other 09-16-2022 11:30-0400 Respiratory rate 20 /min Peri Marbella Other [employer] Other 09-16-2022 11:30-0400 SaO2% (BldA) [Mass fraction] 99 % Peri Tyson Other [employer] Other 09-16-2022 11:30-0400 Systolic blood pressure 146 mm[Hg] Peri Tyson Other [employer] Other 07-30-2022 15:04-0400 Body temperature 97.8 [degF] DO Peri Tyson Work Phone: [facility] 07-30-2022 15:04-0400 Body weight 103.41 kg DO Peri Tyson Work Phone: [facility] 07-30-2022 15:04-0400 Diastolic blood pressure 77 mm[Hg] DO Peri Tyson Work Phone: [facility] 07-30-2022 15:04-0400 Heart rate 82 /min DO Peri Tyson Work Phone: [facility] 07-30-2022 15:04-0400 Respiratory rate 16 /min DO Peri Tyson Work Phone: [facility] 07-30-2022 15:04-0400 SaO2% (BldA) [Mass fraction] 97 % DO Peri Tyson Work Phone: [facility] 07-30-2022 15:04-0400 Systolic blood pressure 147 mm[Hg] DO Peri Tyson Work Phone: [facility] 07-07-2022 10:00-0400 Body height 152.4 cm Lulú Rutaruna Other [employer] Other 07-07-2022 10:00-0400 Body mass index (BMI) [Ratio] 44.33 kg/m2 Lulú Ruth Other [employer] Other 07-07-2022 10:00-0400 Body temperature 97.8 [degF] Lulú Ruth Other [employer] Other 07-07-2022 10:00-0400 Body weight 102.97 kg Lulú Ruth Other [employer] Other 07-07-2022 10:00-0400 Diastolic blood pressure 62 mm[Hg] Lulú Ruth Other [employer] Other 07-07-2022 10:00-0400 SaO2% (BldA) [Mass fraction] 98 % Lulú Ruth Other [employer] Other 07-07-2022 10:00-0400 Systolic blood pressure 108 mm[Hg] Lulú Ruth Other [employer] Other 05-12-2022 15:11-0500 Diastolic blood pressure 59 mm[Hg] DO [facility] Work Phone: [facility] 05-12-2022 15:11-0500 Heart rate 65 /min DO Per[facility] Work Phone: [facility] 05-12-2022 15:11-0500 Inhaled oxygen flow rate 4 L/min DO Peri [facility] Work Phone: [facility] 05-12-2022 15:11-0500 Respiratory rate 18 /min DO Peri [facility] Work Phone: [facility] 01-30-2023 15:11-0500 SaO2% (BldA) [Mass fraction] 98 % DO Periluis Tyson Work Phone: [facility] 05-12-2022 15:11-0500 Systolic blood pressure 120 mm[Hg] DO Peri Tyson Work Phone: [facility] 05-12-2022 14:20-0500 Body temperature 98 [degF] DO Periluis Tyson Work Phone: [facility] 05-07-2022 11:00-0500 Body height 152.4 cm Periluis Tyson Other [employer] Other 05-07-2022 11:00-0500 Body mass index (BMI) [Ratio] 45.66 kg/m2 Peri Tyson Other [employer] Other 05-07-2022 11:00-0500 Body weight 106.05 kg Periluis Tyson Other [employer] Other 05-07-2022 11:00-0500 Diastolic blood pressure 84 mm[Hg] Peri Tyson Other [employer] Other 05-07-2022 11:00-0500 Respiratory rate 20 /min Peri Tyson Other [employer] Other 05-07-2022 11:00-0500 SaO2% (BldA) [Mass fraction] 99 % Periroyce Tyson Other [employer] Other 05-07-2022 11:00-0500 Systolic blood pressure 136 mm[Hg] Peri Tyson Other [employer] Other 04-23-2022 10:55-0500 Body height 152.4 cm DO Giovanni Moreno Work Phone: [facility] 04-23-2022 10:55-0500 Body weight 106.3 kg DO Giovanniamber Moreno Work Phone: [facility] 04-23-2022 10:55-0500 Diastolic blood pressure 82 mm[Hg] DO Giovanni Moreno Work Phone: [facility] 04-23-2022 10:55-0500 Heart rate 75 /min DO Giovanni Moreno Work Phone: [facility] 04-23-2022 10:55-0500 Inhaled oxygen flow rate 5 L/min DO Giovanni Moreno Work Phone: [facility] 04-23-2022 10:55-0500 Respiratory rate 20 /min DO Giovanni Moreno Work Phone: [facility] 04-23-2022 10:55-0500 SaO2% (BldA) [Mass fraction] 100 % DO Giovanni Moreno Work Phone: [facility] 04-23-2022 10:55-0500 Systolic blood pressure 145 mm[Hg] DO Giovanni Moreno Work Phone: [facility] 02-03-2022 11:00-0400 Body height 152.4 cm Peri Tyson Other [employer] Other 02-03-2022 11:00-0400 Body mass index (BMI) [Ratio] 46.59 kg/m2 Peri Tyson Other [employer] Other 02-03-2022 11:00-0400 Body weight 108.23 kg Peri Tyson Other [employer] Other 10-24-2022 11:00-0400 Diastolic blood pressure 80 mm[Hg] Peri Tyson Other [employer] Other 02-03-2022 11:00-0400 Respiratory rate 20 /min Peri Tyson Other [employer] Other 02-03-2022 11:00-0400 SaO2% (BldA) [Mass fraction] 99 % Peri Tyson Other [employer] Other 02-03-2022 11:00-0400 Systolic blood pressure 122 mm[Hg] Peri Tyson Other [employer] Other 12-23-2021 14:30-0400 Body height 152.4 cm Peri Tyson Other [employer] Other 12-23-2021 14:30-0400 Body mass index (BMI) [Ratio] 47.28 kg/m2 Peri Tyson Other [employer] Other 12-23-2021 14:30-0400 Body weight 109.82 kg Peri Tyson Other [employer] Other 12-23-2021 14:30-0400 Diastolic blood pressure 61 mm[Hg] Peri Tyson Other [employer] Other 12-23-2021 14:30-0400 Respiratory rate 20 /min Peri Tyson Other [employer] Other 12-23-2021 14:30-0400 SaO2% (BldA) [Mass fraction] 100 % Peri Tyson Other [employer] Other 12-23-2021 14:30-0400 Systolic blood pressure 109 mm[Hg] Peri Tyson Other [employer] Other 10-23-2021 13:14-0400 Body temperature 97 [degF] DO Giovanni Moreno Work Phone: [facility] 10-23-2021 13:14-0400 Body weight 110.67 kg DO Giovanni Moreno Work Phone: [facility] 10-23-2021 13:14-0400 Diastolic blood pressure 76 mm[Hg] DO Giovanni Josh Work Phone: [facility] 10-23-2021 13:14-0400 Heart rate 70 /min DO Giovanni Moreno Work Phone: [facility] 10-23-2021 13:14-0400 Respiratory rate 16 /min DO Giovanni Moreno Work Phone: [facility] 10-23-2021 13:14-0400 SaO2% (BldA) [Mass fraction] 97 % DO Giovanni Moreno Work Phone: [facility] 10-23-2021 13:14-0400 Systolic blood pressure 148 mm[Hg] DO Giovanni Moreno Work Phone: [facility] 10-21-2021 14:45-0400 Body height 152.4 cm Giovanni Moreno Other [employer] Other 10-21-2021 14:45-0400 Body mass index (BMI) [Ratio] 48.08 kg/m2 Giovanni Moreno Other [employer] Other 10-21-2021 14:45-0400 Body weight 111.68 kg Giovanni Moreno Other [employer] Other 10-21-2021 14:45-0400 Diastolic blood pressure 84 mm[Hg] Giovanni Moreno Other [employer] Other 10-21-2021 14:45-0400 Respiratory rate 20 /min Giovanniamber Moreno Other [employer] Other 10-21-2021 14:45-0400 SaO2% (BldA) [Mass fraction] 99 % Giovanni Moreno Other [employer] Other 10-21-2021 14:45-0400 Systolic blood pressure 158 mm[Hg] Giovanni Moreno Other [employer] Other 09-26-2021 11:50-0400 Diastolic blood pressure 82 mm[Hg] DO Giovanni Moreno Work Phone: [facility] 09-26-2021 11:50-0400 Heart rate 75 /min DO Giovanni Moreno Work Phone: [facility] 09-26-2021 11:50-0400 Inhaled oxygen flow rate 5 L/min DO Giovanni Moreno Work Phone: [facility] 09-26-2021 11:50-0400 Respiratory rate 16 /min DO Giovanni Moreno Work Phone: [facility] 09-26-2021 11:50-0400 SaO2% (BldA) [Mass fraction] 100 % DO Giovanni Moreno Work Phone: [facility] 09-26-2021 11:50-0400 Systolic blood pressure 130 mm[Hg] DO Giovanni Moreno Work Phone: [facility] 09-26-2021 09:07-0400 Body height 152.4 cm DO Giovanni Moreno Work Phone: [facility] 09-26-2021 09:07-0400 Body mass index (BMI) [Ratio] 48.2 kg/m2 DO Giovanni Moreno Work Phone: [facility] 09-26-2021 09:07-0400 Body weight 112.03 kg DO Giovanni Moreno Work Phone: [facility] 08-22-2021 15:00-0400 Body height 152.4 cm Nicko Mckeon Other [email or web address] [facility] Other 08-22-2021 15:00-0400 Body mass index (BMI) [Ratio] 49.21 kg/m2 Nicko Mckeon Other [employer] Other 08-22-2021 15:00-0400 Body weight 114.31 kg Nicko Mckeon Other [employer] Other 08-22-2021 15:00-0400 Diastolic blood pressure 80 mm[Hg] Nicko Mckeon Other [employer] Other 08-22-2021 15:00-0400 SaO2% (BldA) [Mass fraction] 97 % Nicko Mckeon Other [employer] Other 08-22-2021 15:00-0400 Systolic blood pressure 160 mm[Hg] Nicko Mckeon Other [employer] Other 08-16-2021 10:08-0400 Body height 152.4 cm DO Giovanni Moreno Work Phone: [facility] 08-07-2021 10:00-0400 Body height 152.4 cm Giovanni Moreno Other [employer] Other 08-07-2021 10:00-0400 Body mass index (BMI) [Ratio] 50.03 kg/m2 Giovanni Moreno Other [employer] Other 08-07-2021 10:00-0400 Body weight 116.21 kg Giovanni Moreno Other [employer] Other 08-07-2021 10:00-0400 Diastolic blood pressure 86 mm[Hg] Giovanni Moreno Other [employer] Other 08-07-2021 10:00-0400 Respiratory rate 20 /min Giovanni Moreno Other [employer] Other 08-07-2021 10:00-0400 SaO2% (BldA) [Mass fraction] 99 % Giovanni Moreno Other [employer] Other 08-07-2021 10:00-0400 Systolic blood pressure 126 mm[Hg] Giovanni Moreno Other [employer] Other 07-22-2021 10:30-0400 Body height 152.4 cm Giovanni Moreno Other [employer] Other 07-22-2021 10:30-0400 Body mass index (BMI) [Ratio] 49.05 kg/m2 Giovanni Moreno Other [employer] Other 07-22-2021 10:30-0400 Body weight 113.94 kg Giovanni Moreno Other [employer] Other 07-22-2021 10:30-0400 Diastolic blood pressure 81 mm[Hg] Giovanni Moreno Other [employer] Other 07-22-2021 10:30-0400 Respiratory rate 20 /min Giovanni Moreno Other [employer] Other 07-22-2021 10:30-0400 SaO2% (BldA) [Mass fraction] 99 % Giovanniamber Moreno Other [employer] Other 07-22-2021 10:30-0400 Systolic blood pressure 126 mm[Hg] Giovanni Moreno Other [employer] Other 06-20-2021 10:45-0500 Body height 152.4 cm Giovanni Moreno Other [employer] Other 06-20-2021 10:45-0500 Body mass index (BMI) [Ratio] 48.43 kg/m2 Giovanni Moreno Other [employer] Other 06-20-2021 10:45-0500 Body weight 112.49 kg Giovanni Moreno Other [employer] Other 06-20-2021 10:45-0500 Diastolic blood pressure 92 mm[Hg] Giovanni Moreno Other [employer] Other 06-20-2021 10:45-0500 Respiratory rate 20 /min Giovanni Moreno Other [employer] Other 06-20-2021 10:45-0500 SaO2% (BldA) [Mass fraction] 99 % Giovanni Moreno Other [employer] Other 06-20-2021 10:45-0500 Systolic blood pressure 136 mm[Hg] Giovanni Moreno Other [employer] Other 05-23-2021 10:30-0500 Body height 152.4 cm Giovanni Moreno Other [employer] Other 05-23-2021 10:30-0500 Body mass index (BMI) [Ratio] 48.23 kg/m2 Giovanni Moreno Other [employer] Other 05-23-2021 10:30-0500 Body weight 112.04 kg Giovanni Moreno Other [employer] Other 05-23-2021 10:30-0500 Diastolic blood pressure 88 mm[Hg] Giovanni Moreno Other [employer] Other 05-23-2021 10:30-0500 Respiratory rate 20 /min Giovanni Moreno Other [employer] Other 05-23-2021 10:30-0500 SaO2% (BldA) [Mass fraction] 99 % Giovanni Moreno Other [employer] Other 05-23-2021 10:30-0500 Systolic blood pressure 134 mm[Hg] Giovanni Moreno Other [employer] Other 05-01-2021 14:15-0500 Body height 152.4 cm Giovanni Moreno Other [employer] Other 05-01-2021 14:15-0500 Body mass index (BMI) [Ratio] 48.23 kg/m2 Giovanni Moreno Other [employer] Other 05-01-2021 14:15-0500 Body weight 112.04 kg Giovanni Moreno Other [employer] Other 05-01-2021 14:15-0500 Diastolic blood pressure 84 mm[Hg] Giovanni Moreno Other [employer] Other 05-01-2021 14:15-0500 Respiratory rate 20 /min Giovanni Moreno Other [employer] Other 05-01-2021 14:15-0500 SaO2% (BldA) [Mass fraction] 99 % Giovanni Moreno Other [employer] Other 05-01-2021 14:15-0500 Systolic blood pressure 116 mm[Hg] Giovanni Moreno Other [employer] Other 04-02-2021 11:00-0500 Body height 152.4 cm Giovanni Moreno Other [employer] Other 04-02-2021 11:00-0500 Body mass index (BMI) [Ratio] 47.84 kg/m2 Giovanni Moreno Other [employer] Other 04-02-2021 11:00-0500 Body weight 111.13 kg Giovanni Moreno Other [employer] Other 04-02-2021 11:00-0500 Diastolic blood pressure 86 mm[Hg] Giovanni Moreno Other [employer] Other 04-02-2021 11:00-0500 Respiratory rate 20 /min Giovanni Moreno Other [employer] Other 04-02-2021 11:00-0500 SaO2% (BldA) [Mass fraction] 99 % Giovanni Moreno Other [employer] Other 04-02-2021 11:00-0500 Systolic blood pressure 136 mm[Hg] Giovanni Moreno Other [employer] Other 03-04-2021 10:30-0500 Body height 152.4 cm Domenico Whitmore Other [employer] Other 03-04-2021 10:30-0500 Body mass index (BMI) [Ratio] 46.87 kg/m2 Domenico Sanchezrer Other [employer] Other 03-04-2021 10:30-0500 Body temperature 96.3 [degF] Domenico Whitmore Other [employer] Other 03-04-2021 10:30-0500 Body weight 108.86 kg Domenico Sanchezreflora Other [employer] Other 03-04-2021 10:30-0500 Diastolic blood pressure 60 mm[Hg] Domenico Sanchezrer Other [employer] Other 03-04-2021 10:30-0500 SaO2% (BldA) [Mass fraction] 99 % Domenico Sanchezreflora Other [employer] Other 03-04-2021 10:30-0500 Systolic blood pressure 90 mm[Hg] Domenico Buehrer Other [employer] Other Encounters Encounter Date Encounter Type Care Provider Facility Start: 07-07-2023 End: 07-07-2023 ambulatory MACK PRIDE Not Available Start: 07-01-2023 End: 07-01-2023 ambulatory DO Peri Luis Tyson Work Phone: [facility] Work Phone: Start: 07-01-2023 End: 07-01-2023 Patient encounter procedure DO Periroyce Tyson Work Phone: [facility] Vascular Surgery Work Phone: Start: 05-27-2023 End: 05-27-2023 ambulatory DO Brenden Groves Work Phone: 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, with long-term current use of insulin ([facility]) Start: 05-12-2023 End: 05-12-2023 ambulatory Peri Luis Tyson Facility:[facility] Start: 05-12-2023 End: 05-12-2023 ambulatory DO Peri A Tyson Work Phone: [facility] Work Phone: Start: 05-12-2023 End: 05-12-2023 Discharged Recurring DO Peri Marbella Work Phone: [facility] [place] Work Phone: Start: 05-08-2023 End: 05-08-2023 ambulatory Peri Luis Tyson Facility:[facility] Start: 05-08-2023 End: 05-08-2023 ambulatory DO Periluis Tyson Work Phone: [facility] Work Phone: Start: 05-08-2023 End: 05-08-2023 Patient encounter procedure DO Peri Tyson Work Phone: [facility] [place] Work Phone: Start: 04-28-2023 ambulatory Peri Luis Tyson Facility :[facility] Start: 04-28-2023 Registered Recurring DO Peri Tyson Work Phone: [facility] [place] Work Phone: Start: 04-20-2023 Telephone encounter Periroyce Tyson [facility] [place] Start: 04-20-2023 End: 04-20-2023 ambulatory MACK PRIDE [facility] Other Start: 04-15-2023 End: 04-15-2023 ambulatory Periluis Tyson Other [employer] Other Start: 04-15-2023 Telephone encounter Periluis Tyson [facility] [place] Start: 03-24-2023 End: 03-24-2023 ambulatory Periluis Tyson Other [employer] Other Start: 03-24-2023 Telephone encounter Periluis Tyson [facility] [place] Start: 03-19-2023 End: 03-19-2023 ambulatory Periluis Tyson Other [employer] Other Start: 03-19-2023 Telephone encounter Peri Tyson [facility] [place] Start: 03-09-2023 Registered Recurring DO Rayshawn Groves Work Phone: [facility] Start: 03-04-2023 ambulatory Peri Luis Tyson Facility :[facility] Start: 03-04-2023 End: 03-04-2023 ambulatory DO Peri Luis Tyson Work Phone: [facility] Work Phone: Start: 03-04-2023 End: 03-04-2023 Registered Recurring DO Peri Marbella Work Phone: [facility] Work Phone: Start: 02-23-2023 End: 02-23-2023 ambulatory Peri Marbella Other [employer] Other Start: 02-23-2023 Telephone encounter Peri Tyson [facility] Start: 02-19-2023 End: 02-19-2023 ambulatory Peri Luis Tyson Facility:[facility] Start: 02-19-2023 End: 02-19-2023 Patient encounter procedure DO Peri Tyson Work Phone: [facility] [place] Work Phone: Start: 02-12-2023 Telephone encounter Peri Tyson [facility] Start: 02-12-2023 End: 02-12-2023 ambulatory Peri Luis Tyson [employer] Other Start: 02-12-2023 End: 02-12-2023 Admission to same day surgery center DO Peri Marbella Work Phone: [facility]-CT Scan [place] Work Phone: Start: 02-09-2023 Registered Recurring DO Peri Marbella Work Phone: [facility] Start: 02-06-2023 End: 02-06-2023 ambulatory Peri Marbella Other [employer] Other Start: 02-06-2023 Encounter for genera l adult medical examination without abnormal findings Periluis Tyson [facility] Start: 02-06-2023 Periodic preventive med est patient 40-64yrs Periluis Tyson [facility] Start: 02-04-2023 Telephone encounter Peri Tyson [facility] Start: 02-04-2023 End: 02-04-2023 ambulatory Peri Luis Tyson Facility:[facility] Start: 02-04-2023 End: 02-04-2023 ambulatory DO Periluis Tyson Work Phone: [facility] Work Phone: Start: 02-04-2023 End: 02-04-2023 Patient encounter procedure DO Peri Tyson Work Phone: [facility]MRI [address] Work Phone: Start: 02-03-2023 End: 02-03-2023 ambulatory Peri Marbella Other [employer] Other Start: 02-03-2023 Telephone encounter Peri Tyson [facility] Start: 01-29-2023 End: 01-29-2023 ambulatory DO Peri Tyson Work Phone: [facility] Work Phone: Start: 01-29-2023 End: 01-29-2023 Registered Recurring DO Peri Tyson Work Phone: [facility] Work Phone: Start: 01-21-2023 End: 01-21-2023 ambulatory Peri Marbella Other [employer] Other Start: 01-21-2023 Telephone encounter Periluis Tyson [facility] Start: 01-19-2023 End: 01-19-2023 ambulatory Peri Marbella Other [employer] Other Start: 01-19-2023 Telephone encounter Peri Tyson [facility] Start: 01-15-2023 End: 01-15-2023 ambulatory Patsy Blades Other [employer] Other Start: 01-15-2023 Telephone encounter Patsy Blades [facility] Start: 01-12-2023 End: 01-12-2023 ambulatory Patsy Blades Other [employer] Other Start: 01-12-2023 Office outpatient ne w 45 minutes Patsy Blades [facility] Start: 01-12-2023 Telephone encounter Patsy Blades [facility] Start: 12-24-2022 End: 12-24-2022 ambulatory Peri Ytson Other [employer] Other Start: 12-24-2022 Telephone encounter Periluis Tyson [facility] Start: 12-18-2022 End: 12-18-2022 ambulatory Peri Luis Tyson Facility:[facility] Start: 12-18-2022 End: 12-18-2022 Admission to same day surgery center DO Peri Tyson Work Phone: [facility] [place] Start: 12-18-2022 End: 12-18-2022 ambulatory DO Peri Luis Tyson Work Phone: [facility] Work Phone: Start: 12-16-2022 End: 12-16-2022 ambulatory Peri Tyson Other [employer] Other Start: 12-16-2022 Telephone encounter Peri Tyson [facility] Start: 12-10-2022 End: 12-10-2022 ambulatory Periluis Tyson Other [employer] Other Start: 12-10-2022 Telephone encounter Periroyce Tyson [facility] Start: 12-05-2022 End: 12-05-2022 ambulatory Peri Luis Tyson Facility:[facility] Start: 12-05-2022 End: 12-05-2022 Departed Referred DO Peri Marbella Work Phone: [facility] Work Phone: Start: 12-05-2022 End: 12-05-2022 Patient encounter procedure DO Peri Marbella Work Phone: [facility]bl[facility] Work Phone: Start: 12-04-2022 End: 12-04-2022 ambulatory Peri A Tyson Facility:[facility] Start: 12-04-2022 End: 12-04-2022 ambulatory DO Peri A Marbella Work Phone: [facility] Work Phone: Start: 12-04-2022 End: 12-04-2022 Patient encounter procedure DO Peri Marbella Work Phone: [facility] [place] Work Phone: Start: 11-20-2022 End: 11-20-2022 ambulatory DO Peri A Marbella Work Phone: [facility] Work Phone: Start: 11-20-2022 End: 11-20-2022 Discharged Recurring DO Peri Marbella Work Phone: [facility]-Physical Therapy [place] Start: 11-17-2022 End: 11-17-2022 ambulatory Peri Tyson Other [employer] Other Start: 11-17-2022 Telephone encounter Peir Tyson [facility] Start: 10-27-2022 End: 10-27-2022 ambulatory Peri Tyson Other [employer] Other Start: 10-27-2022 Telephone encounter Peri Tyson [facility] Family Medicine [place] Start: 10-13-2022 End: 10-13-2022 ambulatory Peri Marbella Other [employer] Other Start: 10-13-2022 Telephone encounter Periluis Tyson [facility] Family [facility] [place] Start: 10-10-2022 End: 10-10-2022 ambulatory Peri Marbella Other [facility] Other Start: 10-10-2022 Telephone encounter Periluis Tyson [facility] [place] Start: 2022 End: 2022 ambulatory Peri Marbella Other [employer] Other Start: 2022 Telephone encounter Periroyce Tyson [facility] [place] Start: 09-30-2022 End: 09-30-2022 ambulatory Peri Marbella Other [facility] Other Start: 09-30-2022 Telephone encounter Peri Tyson [facility] [place] Start: 09-24-2022 End: 09-24-2022 ambulatory Periluis Tyson Other [facility] Other Start: 09-24-2022 Telephone encounter Periroyce Tyson [facility] [place] Start: 09-16-2022 Office outpatient vi sit 25 minutes Peri Marbella [facility] [place] Start: 09-16-2022 End: 09-16-2022 ambulatory DO Peri Luis Tyson Work Phone: [employer] Other Start: 09-16-2022 End: 09-16-2022 Patient encounter procedure DO Peri Tyson Work Phone: [facility] Start: 09-09-2022 End: 09-09-2022 ambulatory Periroyce Tyson Other [facility] Other Start: 09-09-2022 Telephone encounter Peri Tyson [facility] Start: 09-05-2022 Registered Recurring DO Periluis Tyson Work Phone: [facility]Physical Therapy [address] Start: 08-12-2022 End: 08-12-2022 ambulatory Periluis Tyson Other [employer] Other Start: 08-12-2022 Telephone encounter Peri Tyson [facility] Start: 08-07-2022 End: 08-07-2022 ambulatory Peri Tyson Facility:[facility] Start: 08-07-2022 End: 08-07-2022 ambulatory DO Peri Tyson Work Phone: [facility] Work Phone: Start: 08-07-2022 End: 08-07-2022 Patient encounter procedure DO Peri Tyson Work Phone: [facility] [place] Work Phone: Start: 08-01-2022 End: 08-01-2022 ambulatory Peri Tyson Other [employer] Other Start: 08-01-2022 Telephone encounter Peri Tyson [facility] Start: 07-30-2022 Registered Recurring DO Periluis Tyson Work Phone: [facility] Work Phone: Start: 07-18-2022 End: 07-18-2022 ambulatory Periluis Tyson Other [employer] Other Start: 07-18-2022 Telephone encounter Peri Tyson [facility] [place] Start: 07-17-2022 End: 07-17-2022 ambulatory Peri Tyson Other [employer] Other Start: 07-17-2022 Telephone encounter Peri Tyson [facility] [place] Start: 07-14-2022 End: 07-14-2022 ambulatory Peri Tyson Other [employer] Other Start: 07-14-2022 Telephone encounter Peri Tyson [facility] [place] Start: 07-07-2022 Follow-up encounter Lulú Gaytan [facility] Start: 07-07-2022 End: 07-07-2022 ambulatory Periroyce Tyson [facility] Other Start: 07-07-2022 End: 07-07-2022 Patient encounter procedure DO Peri Tyson Work Phone: [facility]Ultrasound [facility] Start: 07-03-2022 End: 07-04-[address] SANAM LINARES . Facility: Start: 06-30-2022 End: 06-30-2022 ambulatory Peri Tyson Other [employer] Other Start: 06-30-2022 Telephone encounter Peri Tyson [facility] [place] Start: 05-23-2022 Telephone encounter Periroyce Tyson [facility] [place] Start: 05-23-2022 End: 05-23-2022 ambulatory DO Peri Luis Tyson Work Phone: [facility] Work Phone: Start: 05-23-2022 End: 05-23-2022 Patient encounter procedure DO Peri Marbella Work Phone: [facility] Work Phone: Start: 05-15-2022 End: 05-15-2022 ambulatory Peri Tyson Other [employer] Other Start: 05-15-2022 Telephone encounter Peri Tyson [facility] Start: 05-12-2022 End: 05-12-2022 ambulatory Peri Tyson Other [employer] Other Start: 05-12-2022 Telephone encounter Peri Tyson [facility] Start: 05-12-2022 Registered Recurring DO Peri [facility] [place] Work Phone: Start: 05-09-2022 End: 05-09-2022 Patient encounter procedure DO Periluis Tyson Work Phone: [facility] [place] Work Phone: Start: 05-07-2022 End: 05-07-2022 ambulatory Peri Tyson Other [employer] Other Start: 05-07-2022 Office outpatient vi sit 25 minutes Peri Tyson [facility] Start: 05-06-2022 End: 05-07-[address] SANAM LINARES . Facility: Start: 04-23-2022 End: 04-23-2022 ambulatory DO Giovanni Moreno Work Phone: [facility] Work Phone: Start: 04-23-2022 End: 04-23-2022 Registered Recurring DO Giovanni Moreno [facility] [place] Work Phone: Start: 04-22-2022 End: 04-22-2022 ambulatory Peri Tyson Other [employer] Other Start: 04-22-2022 Telephone encounter Peri Tyson [facility] [place] Start: 04-21-2022 End: 04-21-2022 ambulatory Periluis Tyson Other [employer] Other Start: 04-21-2022 Telephone encounter Periroyce Tyson [facility] [place] Start: 04-17-2022 End: 04-17-2022 ambulatory Periluis Tyson Other [employer] Other Start: 04-17-2022 Telephone encounter Periroyce Tyson [facility] [place] Start: 04-02-2022 End: 04-02-2022 ambulatory Periluis Tyson Other [employer] Other Start: 04-02-2022 Telephone encounter Peri Tyson [facility] [place] Start: 03-31-2022 End: 03-31-2022 ambulatory Periroyce Tyson Other [employer] Other Start: 03-31-2022 Telephone encounter Periroyce Tyson [facility] [place] Start: 03-17-2022 End: 03-17-2022 ambulatory Periluis Tyson Other [employer] Other Start: 03-17-2022 Telephone encounter Peri Tyson [facility] [place] Start: 03-10-2022 End: 03-10-2022 ambulatory Periluis Tyson Other [employer] Other Start: 03-10-2022 Telephone encounter Peri Tyson [facility] [place] Start: 02-19-2022 End: 02-19-2022 ambulatory DO Giovanni Moreno Work Phone: [facility] Work Phone: Start: 02-19-2022 End: 02-19-2022 Patient encounter procedure DO Giovanni Moreno Work Phone: [facility]Sleep Lab Start: 02-18-2022 End: 02-18-2022 ambulatory Periluis Tyson Other [employer] Other Start: 02-18-2022 Telephone encounter Periluis Tyson [facility] [place] Start: 02-13-2022 End: 02-13-2022 ambulatory Periluis Tyson Other [employer] Other Start: 02-13-2022 Telephone encounter Periroyce Tyson [facility] [place] Start: 02-11-2022 End: 02-11-2022 ambulatory Periluis Tyson Other [employer] Other Start: 02-11-2022 Telephone encounter Peri Tyson [facility] [place] Start: 02-10-2022 End: 02-10-2022 ambulatory Peri Marbella Other [employer] Other Start: 02-10-2022 Telephone encounter Peri Tyson [facility] [place] Start: 02-03-2022 Office outpatient vi sit 25 minutes Peri Tyson [facility] [place] Start: 02-03-2022 End: 02-03-2022 ambulatory DO Giovanni Moreno Work Phone: [employer] Other Start: 02-03-2022 End: 02-03-2022 Departed Referred DO Giovanni Moreno Work Phone: [facility] [place] Start: 01-22-2022 End: 01-22-2022 ambulatory Peri Tyson Other [employer] Other Start: 01-22-2022 Telephone encounter Peri Tyson [facility] [place] Start: 12-30-2021 End: 12-30-2021 ambulatory Peri Tyson Other [employer] Other Start: 12-30-2021 Telephone encounter Peri Tyson [facility] [place] Start: 12-23-2021 End: 12-23-2021 ambulatory Peri Tyson Other [employer] Other Start: 12-23-2021 Office outpatient vi sit 25 minutes Periluis Tyson [facility] [place] Start: 12-23-2021 End: 12-23-2021 Departed Referred DO Giovanni Moreno Work Phone: [facility] [place] Start: 11-29-2021 End: 11-29-2021 ambulatory Josafat Nunes Other [employer] Other Start: 11-29-2021 Telephone encounter Josafat Nunes [facility] [place] Start: 11-05-2021 End: 11-05-2021 ambulatory Giovanni Moreno Other [employer] Other Start: 11-05-2021 Telephone encounter Giovanni Gaytan [facility] [place] Start: 11-04-2021 End: 11-04-2021 ambulatory Adore Schwerer Other [employer] Other Start: 11-04-2021 Telephone encounter Adore Schwerer [facility] [place] Start: 10-31-2021 End: 10-31-2021 ambulatory Adore Schwerer Other [employer] Other Start: 10-31-2021 Telephone encounter Adore Schwerer [facility] [place] Start: 10-23-2021 Registered Recurring DO Giovanni Moreno Work Phone: [facility] Start: 10-21-2021 End: 10-21-2021 Patient encounter procedure DO Giovanni Moreno Work Phone: [facility]Lab [facility] Start: 10-21-2021 End: 10-21-2021 ambulatory Giovanni Moreno Other [employer] Other Start: 10-21-2021 Office outpatient vi sit 25 minutes Giovanni GARCIA [facility] [place] Start: 10-03-2021 End: 10-03-2021 ambulatory Giovanni Moreno Other [employer] Other Start: 10-03-2021 Telephone encounter Giovanni Gaytan [facility] [place] Start: 09-26-2021 End: 09-26-2021 Admission to same day surgery center DO Giovanni Moreno Work Phone: [facility]-CT Scan [facility] [place] Start: 09-19-2021 End: 09-19-2021 ambulatory Giovanniamber IzaguirreJosh Other [employer] Other Start: 09-19-2021 Telephone encounter Giovanni Gaytan [facility] [place] Start: 08-23-2021 End: 08-23-2021 ambulatory Nicko Mckeon Other [employer] Other Start: 08-23-2021 Telephone encounter Nicko Mckeon [facility] Start: 08-22-2021 End: 08-22-2021 ambulatory Nicko Mckeon Other [employer] Other Start: 08-22-2021 Office consultation new/estab patient 60 min Nicko Mckeon [facility] Start: 08-08-2021 End: 08-08-2021 ambulatory Giovanni Josh Other [employer] Other Start: 08-08-2021 Telephone encounter Giovanni Gaytan [facility] [place] Start: 08-07-2021 End: 08-07-2021 ambulatory Giovanni Moreno Other [employer] Other Start: 08-07-2021 Office outpatient vi sit 15 minutes Giovanni Moreno [facility] [place] Start: 08-07-2021 Telephone encounter Giovanni Moreno [facility] [place] Start: 08-01-2021 End: 08-01-2021 ambulatory Giovanni Moreno Other [facility] Other Start: 08-01-2021 Telephone encounter Giovanni Moreno [facility] [place] Start: 07-29-2021 End: 07-29-2021 ambulatory Giovanni Moreno Other [employer] Other Start: 07-29-2021 Telephone encounter Giovanni Moreno [facility] [place] Start: 07-22-2021 End: 07-22-2021 ambulatory Giovanni Moreno Other [employer] Other Start: 07-22-2021 Office outpatient vi sit 25 minutes Giovanni Moreno [facility] [place] Start: 07-03-2021 End: 07-03-2021 ambulatory Giovanni Moreno Other [employer] Other Start: 07-03-2021 Telephone encounter Giovanni Moreno [facility] [place] Start: 06-25-2021 End: 06-25-2021 ambulatory Giovanni Moreno Other [employer] Other Start: 06-25-2021 Telephone encounter Giovanni Moreno [facility] [place] Start: 06-20-2021 End: 06-20-2021 ambulatory Giovanni Josh Other [facility] Other Start: 06-20-2021 Office outpatient vi sit 25 minutes Giovanni Moreno [facility] [place] Start: 06-06-2021 End: 06-06-2021 ambulatory Giovanni Moreno Other [facility] Other Start: 06-06-2021 Telephone encounter Giovanni Moreno [facility] [place] Start: 06-05-2021 End: 06-05-2021 ambulatory Giovanni Moreno Other [facility] Other Start: 06-05-2021 Telephone encounter Giovanni Moreno [facility] [place] Start: 05-23-2021 End: 05-23-2021 ambulatory Giovanni Moreno Other [employer] Other Start: 05-23-2021 Patient encounter procedure Giovanni Moreno [facility] [place] Start: 05-23-2021 Telephone encounter Giovanni Gaytan [facility] [place] Start: 05-15-2021 End: 05-15-2021 ambulatory Giovanni Moreno Other [employer] Other Start: 05-15-2021 Telephone encounter Giovanni Gaytan [facility] [place] Start: 05-02-2021 End: 05-02-2021 ambulatory Giovanni Moreno Other [employer] Other Start: 05-02-2021 Telephone encounter Giovanni Moreno [facility] [place] Start: 05-01-2021 End: 05-01-2021 ambulatory Giovanni Moreno Other [employer] Other Start: 05-01-2021 Office outpatient vi sit 15 minutes Giovanni Moreno [facility] [place] Start: 04-30-2021 End: 04-30-2021 ambulatory Giovanni Moreno Other [facility] Other Start: 04-30-2021 Telephone encounter Giovanni Moreno [facility] [place] Start: 04-29-2021 End: 04-29-2021 ambulatory Giovanni Moreno Other [facility] Other Start: 04-29-2021 Telephone encounter Giovanni Gaytan [facility] [place] Start: 04-02-2021 End: 04-02-2021 ambulatory Giovanni Moreno Other [employer] Other Start: 04-02-2021 Office outpatient vi sit 25 minutes Giovanni Josh [facility] [place] Start: 03-25-2021 End: 03-25-2021 ambulatory Giovanni Moreno Other [employer] Other Start: 03-25-2021 Telephone encounter Giovanniamber Gaytan [facility] [place] Start: 03-21-2021 End: 03-21-2021 ambulatory Giovanni Moreno Other [facility] Other Start: 03-21-2021 Telephone encounter Giovanni Gaytan [facility] [place] Start: 03-04-2021 End: 03-04-2021 ambulatory Domenico Whitmore Other [employer] Other Start: 03-04-2021 Office outpatient ne w 45 minutes Domenico Whitmore [facility] Vascular Surgery Start: 02-27-2021 End: 02-27-2021 ambulatory Giovanni Moreno Other [employer] Other Start: 02-27-2021 Telephone encounter Giovanniamber Gaytan [facility] [place] Start: 02-20-2021 End: 02-20-2021 ambulatory Giovanni Moreno Other [employer] Other Start: 02-20-2021 Telephone encounter Giovanniamber IzaguirreJosh Lukas [facility] [place] Procedures Date Procedure Procedure Detail Performing Clinician Start: 05-08-2023 Duplex scan of lower limb veins DO Cecilia a Tyson Work Phone: Start: 02-19-2023 Pulse volume recorder pneumoplethysmography DO Peri Tyson Work Phone: Start: 02-12-2023 Bone marrow sampling DO Peri Tyson Work Phone: Start: 02-06-2023 Radiologic examination, osseous survey, complete DO Peri Tyson Work Phone: Start: 02-04-2023 MRI of left hip DO Peri Tyson Work Phone: Start: 12-18-2022 Phacoemulsification of cataract with intraocular lens implantation DO Peri Tyson Work Phone: Start: 12-04-2022 MR lumbar spine wo con DO Peri Tyson Work Phone: Start: 09-16-2022 Plain X-ray of left hip DO Peri Tyson Work Phone: Start: 07-07-2022 Duplex scan of lower limb veins DO Cecilia a Tyson Work Phone: Start: 05-23-2022 Screening mammography of bilateral breasts DO Peri Tyson Work Phone: Start: 04-25-2022 Pelvis X-ray DO Peri Hitmeister Phone: Start: 04-25-2022 X-ray of lumbar spine, two or three views DO Periluis Tyson Work Phone: Start: 02-03-2022 Urine culture DO Giovanni Moreno Work Phone: Start: 09-26-2021 Bone marrow sampling DO Giovanni Moreno Work Phone: Start: 08-22-2021 Radiologic examination, osseous survey, complete DO Giovanni Moreno Work Phone: Urine culture DO Giovanni jacobsen Work Phone: Urine culture DO Giovanni Carna jacobsen Work Phone: Plan of Treatment Date Care Activity Detail Author Start: 07-16-2023 End: 07-16-2023 Patient encounter procedure 07/16/2023 1:45 PM EDT Office Visit [facility] [address] [facility] [place] [id number] Svetlana Garcia DO [address] [place] [address] [facility] Start: 06-29-2023 End: 06-29-2023 Patient encounter procedure 06/29/2023 8:40 AM EDT Office Visit [facility] [address] [place] [id number] Mack Pride, DPM [address] [address] [facility] Start: 05-08-2023 Duplex scan of lower limb veins US venous duplex LE BI [facility] Start: 05-08-2023 US Lower extremity v ein - bilateral [facility] Start: 02-12-2023 End: 02-12-2023 [facility] Start: 12-18-2022 End: 12-18-2022 [facility] Start: 08-07-2022 Insulin C-peptide measurement [facility] Start: 05-12-2022 [facility] Start: 05-09-2022 [facility] Start: 05-05-2022 [facility] Start: 04-30-2022 [facility] Start: 09-26-2021 End: 09-26-2021 [facility] Work Phone: Start: 1998 Screening for malign ant neoplasm of breast Mammogram [facility] Start: 1988 Screening for malign ant neoplasm of cervix [facility] Start: 10-09-1979 Screening for malign ant neoplasm of cervix Pap Smear [facility] Start: 1958 Screening for malign ant neoplasm of colon [facility] Bacteria identified in Urine by Culture [facility] Bone marrow sampling [facility] Comprehensive metabo lic 1999 panel - Serum or Plasma [facility] Work Phone: Comprehensive metabo lic 1999 panel - Serum or Plasma [facility] Comprehensive metabo lic 1999 panel - Serum or Plasma [facility]: Ferritin [Mass/volum e] in Serum or Plasma [facility] Work Phone: Ferritin [Mass/volum e] in Serum or Plasma [facility] Patient Education [facility] Work Phone: Patient referral [facility] Work Phone: Radiologic examinati on osseous survey compl [facility] XR Lumbar spine 2 or 3 Views [facility] XR Pelvis [facility] or 2 [facility] Immunizations Immunization Date Immunization Notes Care Provider Fa [facility] 01-28-2023 Arexvy-For documentation purposes only Peri Tyson Other [facility] 12-12-2022 influenza, injectabl e, quadrivalent, preservative free Peri Tyson Other [facility] 07-01-2022 influenza, injectabl e, quadrivalent, preservative free Mack Pride DPM Work Phone: [facility] 06-13-2022 Hepatitis B vaccine (recombinant), CpG adjuvanted Mack Pride DPM Work Phone: [facility] 02-18-2022 Pneumococcal Conjuga te PCV 20 Mack Pride DPM Work Phone: [facility] 12-29-2021 COVID-19 Pfizer (bivalent) Peri Tyson Other [facility] 12-25-2021 Influenza, injectabl e, Madin Nkechi Canine Kidney, preservative free, quadrivalent Mack Pride DPM Work Phone: [facility] 12-25-2021 tetanus toxoid, redu alex diphtheria toxoid, and acellular pertussis vaccine, adsorbed Peri Tyson Other [facility] Other 12-25-2021 influenza, seasonal, injectable Peri Tyson Other [facility] 10-28-2021 COVID-19 Vaccine Moderna - Documentation Purposes Only Peri Tyson Other [facility] 10-28-2021 pneumococcal polysaccharide vaccine, 23 valent Peri Tyson Other [facility] Other 06-11-2021 COVID-19 mRNA-1273 (Moderna) DO Giovanni Moreno Work Phone: [facility] 03-12-2021 COVID-19 Vaccine Moderna - Documentation Purposes Only Giovanni Moreno Other [facility] 03-11-2021 Moderna SARS-CoV-2 Booster Vaccination Mack Pride DPM Work Phone: [facility] 01-24-2021 COVID-19 mRNA-1273 (Moderna) DO Giovanni Moreno Work Phone: [facility] 01-11-2021 Flu Vaccine - Adult DO Cecilia a Tyson Work Phone: [facility] 01-11-2021 influenza, seasonal, injectable DO Giovanni Moreno Work Phone: [facility] 01-03-2021 influenza, seasonal, injectable Giovanni Josh Other [facility] 01-03-2021 Influenza, injectabl e, Madin Nkechi Canine Kidney, preservative free, quadrivalent Mack Pride DPM Work Phone: [facility] 12-22-2020 zoster vaccine recombinant Giovanni Moreno Other [facility] Other 09-13-2020 zoster vaccine recombinant Giovanni Moreno Other [facility] Other 07-31-2020 pneumococcal polysaccharide vaccine, 23 valent Giovanni Moreno Other [facility] Other 07-25-2020 COVID-19 Vaccine Pfi zer - Documentation Purposes Only Giovanni Moreno Other [facility] 07-12-2020 COVID-19 mRNA-1273 (Moderna) DO Giovanni Moreno Work Phone: [facility] 07-05-2020 COVID-19 Vaccine Pfi zer - Documentation Purposes Only Giovanni Moreno Other [facility] 01-16-2020 influenza, injectabl e, quadrivalent, preservative free Mack Pride DPM Work Phone: [facility] 02-16-2019 Influenza, injectabl e, Madin [place] Canine Kidney, preservative free, quadrivalent Mack Pride DPM Work Phone: [facility] 05-11-2018 pneumococcal conjuga te vaccine, 13 valent Giovanni Moreno Other [facility] Other 01-28-2018 Influenza, injectabl e, Madin [place] Canine Kidney, quadrivalent with preservative Mack Pride DPM Work Phone: [facility] 02-11-2017 influenza, injectabl e, quadrivalent, contains preservative Mack Pride DPM Work Phone: [facility] 07-09-2016 pneumococcal polysaccharide vaccine, 23 valent Mack Pride DPM Work Phone: [facility] 02-23-2013 influenza virus vaccine, whole virus Mack Pride DPM Work Phone: [facility] 05-21-2012 pneumococcal polysaccharide vaccine, 23 valent Mack Pride DPM Work Phone: [facility] Payers Date Payer Category Payer Self-pay [id number] 2021 Medicaid [employer] [place] [id number] 2021-Present [address] [place] [address] [id number] 1959 Unknown [id number] 1958 Unknown [id number] [id number] 1958 Unknown [id number] [id number] 1958 Unknown [id number] 2.16.840.1.003952.3.579.2.1259 1958 Unknown [id number] 2.16.840.1.124970.3.579.2.1259 Medicaid [facility] [id number] Unknown [id number] [id number] Unknown [id number] 2.16.840.1.784030.3.579.2.531 Unknown [id number] 2.16.840.1.219482.3.579.2.531 Unknown [id number] 2.16.840.1.414367.3.579.2.531 Unknown [id number] 2.16.840.1.515938.3.579.2.531 Unknown [id number] 2.16.840.1.576013.3.579.2.531 Unknown [id number] 2.16.840.1.699076.3.579.2.531 Unknown [id number] 2.16.840.1.040990.3.579.2.531 Unknown [id number] 2.16.840.1.975229.3.579.2.531 Unknown [id number] 2.16.840.1.865590.3.579.2.531 Unknown [id number] 2.16.840.1.747076.3.579.2.531 Unknown [id number] 2.16.840.1.238316.3.579.2.531 Unknown [id number] 2.16.840.1.302722.3.579.2.531 Unknown [id number] 2.16.840.1.579845.3.579.2.531 Social History Date Type Detail Facility Start: 04-20-2023 Sex Assigned At [facility] Other Start: 10-23-2021 End: 05-12-2023 Tobacco smoking status WIIS Never smoked tobacco (finding) [facility] Start: 1960 Sex Assigned At Female [facility] Start: 09-22-2022 Tobacco use and exposure [...] intraocular lens implantation Posterior-chamber intraocular lens, pseudophakic [id number] FDA Start: 12-18-2022 Phacoemulsification of cataract [...] note Note Date/Time April 28, 2023 9:09am [facility] [address] [place] [address] Wound Center Provider Note Signed Patient: Doreen Turcios MR#: [id number] : 1960 Acct:[id number] Age/Sex: 62 / F Copies to: Peri Tyson, DO Erica Diehl, MANAGER MALL~ HPI Date of Visit Date of Visit: Date of Service: 04/28/2023 Time of Service: 09:06 Narrative HPI: 04/28/23 Doreen is a 62-year-old [facility] [...] has changed at all. I did tell Doreen that I would like her to see a manager r d, especially if the venous studies do not [...] any signs of acute infection attoday's visit. Doreen will return to the office in approximately 2 weeks. She should elevate the legs when possible and use compression if she is able. She should follow with vascular as scheduled as well. 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 Lives with:: Spouse Appetite Description: Within Normal Limits Smoking Status: Never smoker [facility] Medical History (Updated 04/28/23 @ 09:09 [...] Skin Breakdown Bed Appearance: Beefy Red and [place] Percent of Wound Bed Granulated/Red: 100 Percent of Devitalized: 0 Length (cm): 0.6 Width (cm): 0.5 Depth (cm): 0.1 CM Sq: 0.300 Surrounding Tissue Appearance: Hyperpigmented Surrounding Tissue Temp: Warm Drainage Amount: Scant Drainage Odor: No Odor Right Lower Leg: Type: Venous Stasis Ulcer Thickness: Skin Breakdown Bed Appearance: Beef[place] Percent of Wound Bed Granulated/Red: 100 Percent [...] 15 Dictated By: Erica Diehl APRN DD/ 0906 Signed By: <Electronically signed by LUCI Diehl> 04/28/23 0915 [facility] Work Phone: [phone] 247-185612-07-2023 Evaluation note* Encounter Date Diagnosis Assessment Notes Treatment Notes Treatment Clinical Notes Mar, Diarrhea (ICD-10 - R19.7) [facility] Other 11-13-2023 Evaluation note* Encounter Date Diagnosis Assessment Notes Treatment Notes Treatment Clinical Notes Feb, Controlled type 2 diabetes mellitus with complication, without long-term current use of insulin (ICD-10 - E11.8) [facility] Other 10-27-2023 Evaluation note* Encounter Date Diagnosis [...] evaluation. DIscussed possible need for vascular f/u [facility] Other 10-24-2023 Evaluation note* Encounter Date Diagnosis Assessment Notes Treatment Notes Treatment Clinical Notes Jan, Controlled type 2 diabetes mellitus with complication, without long-term current use of insulin (ICD-10 - E11.8) [facility] Other 10-19-2023 Progress note Author Roxane Bills [facility] January 29, 2023 9:44am Note Date/Time January 29, 2023 9 :02am [facility] [place] [address] Hem/Onc Follow Up Note - OP Signed Patient: Doreen Turcios MR#: [id number] : 1960 Acct:[id number] Age/Sex: 62 / F Type: REG RCR Copies to: DO Peri Deleon DO~ Subjective Date/Time of Service: Date of Service: 01/29/2023 Time of Service: 09:00 Chief Complaint: Patient is here today for a 6 month follow up visit for MGUS and AMIE and go over labs HPI: 01/29/2023: Doreen is here for 6-month follow-up of iron [...] 35-minute follow-up for complex laboratory testing. 07/30/2022: Doreen is here for 3-month follow-up after iron [...] as needed. Low complexity 25-minute follow-up. 04/23/2022: Doreen presents for follow-up for her MGUS and [...] will be in 3mowith repeat labs. 10/23/2021: Doreen is here for follow-up of image guided [...] a creatinine of 1.64 correlating to EGFR, vgz-Brdtpzh-Nxttnjqq 32. This has not significantly changed over [...] Negative for environmental allergies and food allergies. [facility] - History Attestation statement: The following [...] H, IgM 107, Serum Immunofixation A, Free [place] LC, Quant 237.9 H, Free Lambda LC, Quant 38.0 H, Free [place]/Lambda Ratio 6.26 H 01/22/23 13:24: PHA Creatinine Clear 44.97, Sodium 141, Potassium 4.2, Chloride 100, Carbon Dioxide 32.1 H, Anion Gap 13.1, BUN 13, Creatinine 1.37 H, Est GFR (CKD- EPI) 43.118, Glucose 199 H, Calcium 8.6, Iron 74, TIBC 311, Iron Ibuawkqmmy81.8, Transferrin 222, Ferritin 192.2, Total Bilirubin 0.4, [...] % (Auto) 64.2, Lymph % (Auto) 25.5, Sierra % (Auto) 5.6, Eos % (Auto) 4.2, Baso % (Auto) 0.5, Nucleat RBC Rel Count 0.0, Neut # (Auto) 8.0 H, Lymph # (Auto) 3.2, Sierra # (Auto) 0.7, Eos # (Auto) 0.5 [...] a creatinine of 1.64 correlating to EGFR, mai-Beucdvw-Xuvogiri 32. This has not significantly changed over the last year but is lower than prior labs from 2028-0969. Most recent calcium within normal limits and [...] Moderate complexity visit of 35 minutes. 04/23/2022: Doreen complains of increased back pain over the [...] for coordination of care (as documented) and cizp-kc-jlyd counseling of patient and/or family. Dictated By: Roxane Bills MD DD/ 09 Signed By: <Electronically signed by MD Roxane Bills> 01/29/23943 [facility] Work Phone: [phone] 440-219010-11-2023 Evaluation note* Encounter Date Diagnosis Assessment Notes Treatment Notes Treatment Clinical Notes Jan, Left hip pain (ICD-10 - M25.552) [facility] Other 10-02-2023 Evaluation note* Encounter Date Diagnosis Assessment Notes Treatment Notes Treatment Clinical Notes Jan, Other chronic pain (ICD-10 - G89.29) Jan, Lumbago with sciatica, left side (ICD-10 - M54.42) [facility] Other 09-05-2023 Evaluation note* Encounter Date Diagnosis Assessment Notes Treatment Notes Treatment Clinical Notes Dec, Acquired lymphedema of lower extremity (ICD-10 - I89.0) [facility] Other 07-17-2023 Evaluation note* Encounter Date Diagnosis Assessment Notes Treatment Notes Treatment Clinical Notes Oct, Type 2 diabetes mellitus with diabetic chronic kidney disease (ICD-10 - E11.22) [facility] Other 07-03-2023 Evaluation note* Encounter Date Diagnosis Assessment Notes Treatment Notes Treatment Clinical Notes Oct, Other chronic pain (ICD-10 - G89.29) [facility] Other 06-28-2023 Evaluation note* Encounter Date Diagnosis Assessment Notes Treatment Notes Treatment Clinical Notes Sep, Gait instability (ICD-10 - R26.81) [facility] Other 06-06-2023 Evaluation note* Encounter Date Diagnosis [...] obstructive pulmonary disease, unspecified (ICD-10 - J44.9) [facility] Other 05-30-2023 Evaluation note* Encounter Date Diagnosis Assessment Notes Treatment Notes Treatment Clinical Notes August, Lumbosacral spondylosis without myelopathy (ICD-10 - M47.817) [facility] Other 05-02-2023 Evaluation note* Encounter Date Diagnosis Assessment Notes Treatment Notes Treatment Clinical Notes August, Chronic obstructive pulmonary disease, unspecified (ICD-10 - J44.9) [facility] Other 04-21-2023 Evaluation note* Encounter Date Diagnosis Assessment Notes Treatment Notes Treatment Clinical Notes Jul, Controlled type 2 diabetes mellitus with complication, without long-term current use of insulin (ICD-10 - E11.8) [facility] Other 04-20-2023 Progress note Author Roxane Bills [facility] July 31, 2022 1:09pm Note Date/Time July 30, 2022 3:0 8pm [facility] [place] [address] Hem/Onc Follow Up Note - OP Signed Patient: Doreen Turcios MR#: [id number] : 1960 Acct:[id number] Age/Sex: 61 / F Type: REG RCR Copies to: DO Peri Deleon DO~ Subjective Date/Time of Service: Date of Service: 07/30/2022 Time of Service: 15:07 Chief Complaint: Patient is here today for a 3 month follow up visit for MGUS and iron deficiencty anemia and go over labs HPI: 07/30/2022: Doreen is here for 3-month follow-up after iron [...] as needed. Low complexity 25-minute follow-up. 04/23/2022: Doreen presents for follow-up for her MGUS and [...] will be in 3mowith repeat labs. 10/23/2021: Doreen is here for follow-up of image guided [...] a creatinine of 1.64 correlating to EGFR, hin-Qltvtxu-Opdrrond 32. This has not significantly changed over [...] - Last 7 Days 07/22/22 09:12: Free [place] LC, Quant 120.4 H, Free Lambda LC, [...] a creatinine of 1.64 correlating to EGFR, pmo-Ouychts-Bzaqnltr 32. This has not significantly changed over the last year butis lower than prior labs from 8497-3376. Most recent calcium within normal limits and [...] Moderate complexity visit of 35 minutes. 04/23/2022: Doreen complains of increased back pain over the [...] for coordination of care (as documented) and bzeb-ta-vkcl counseling of patient and/or family. Dictated By: Roxane Bills MD DD/ 1507 Signed By: <Electronically signed by MD Roxane Bills> 07/31/22 1308 [facility] Work Phone: [phone]) [phone] Evaluation note* Encounter Date Diagnosis Assessment Notes Treatment Notes Treatment Clinical Notes Jul, Essential hypertension (ICD-10 - I10) [facility] Other 04-06-2023 Evaluation note* Encounter Date Diagnosis Assessment Notes Treatment Notes Treatment Clinical Notes Jul, Type 2 diabetes mellitus with diabetic chronic kidney disease (ICD-10 - E11.22) [facility] Other 04-03-2023 Evaluation note* Encounter Date Diagnosis Assessment Notes Treatment Notes Treatment Clinical Notes Jul, Essential hypertension (ICD-10 - I10) [facility] Other 03-27-2023 Evaluation note* Encounter Date Diagnosis [...] discussion, agrees with plan, denies any questions. [facility] Other 03-23-2023 NoteCONSULTATION CONSULTATION DATE: 07/03/2022 TO: Dr. Tyson [facility] CHIEF COMPLAINT: Left lower back pain. HISTORY: [...] one pill up to b.i.d. as tolerated.[facility] [id number] Evaluation note* Encounter Date Diagnosis Assessment Notes Treatment Notes Treatment Clinical Notes Jun, Type 2 diabetes mellitus with diabetic chronic kidney disease (ICD-10 - E11.22) Jun, Acquired lymphedema of lower extremity (ICD-10 - I89.0) Jun, Cough (ICD-10 - R05.9) [facility] Other 02-02-2023 Evaluation note* Encounter Date Diagnosis Assessment Notes Treatment Notes Treatment Clinical Notes May, Conjunctivitis (ICD-10 - H10.9) [facility] Other 01-25-2023 Evaluation note* Encounter Date Diagnosis [...] on current dose of antihypertensives, will continue [facility] Other 01-24-2023 NoteCONSULTATION CONSULTATION DATE: 05/06/2022 CHIEF COMPLAINT: Low back pain, bilateral lower extremity pain. HISTORY OF PRESENT ILLNESS: This is a 61-year-old female who is referred to us by Dr. Peri Tyson from [facility]. The patient has had [...] kidney disease. The patient takes half a Phoenix tablet on a p.r.n. basis, duloxetine 60 [...] patient responds, we can increase that to Phoenix 5/325 on a t.i.d. basis. I would [...] CC: Peri Tyson D.O. Brenden Groves D.O.[facility] [id number] Progress note Author [facility] April 23, 2022 12:40pm Note Date/Time April 23, 2022 1 1:14[facility] [place] [address] Hem/Onc Follow Up Note - OP Signed Patient: Doreen Turcios MR#: [id number] : 1960 Acct:[id number] Age/Sex: 61 / F Type: REG RCR Copies to: MD Brenden Manzo DO Kevin T Carnahan, D.O.~ Subjective Date/Time of Service: Date of Service: 04/23/2022 Time of Service: 11:14 Chief Complaint: Patient is here for a 6 month follow up with labs 04/17/2022 for review. No concerns voiced at this time. HPI: 04/23/2022: Doreen presents for follow-up for her MGUS and [...] will be in 3mowith repeat labs. 10/23/2021: Doreen is here for follow-up of image guided [...] a creatinine of 1.64 correlating to EGFR, zuu-Aeuvijw-Fqjseasm 32. This has not significantly changed over [...] & no additional complaints except as documented [facility] - Medical History Medical History: Medical History [...] 3.4, Globulin (PEP) 3.9, Albumin/Globulin (PEP) 0.9, Ixfez-1-Qhzwoejwh 0.3, Lsiyr-0-Tpswsgjxq 0.9, Beta Globulins 1.4 H, Gamma Globulins 1.3, M-Damien 0.4 H, PEP Note , IgG 1443, IgA 625 H, IgM 98, Free [place] LC, Quant 162.6 H, Free Lambda LC, Quant 44.5 H, Free [place]/Lambda Ratio 3.65 H 04/17/22 10:05: PHA Creatinine [...] % (Auto) 61.2, Lymph % (Auto) 24.5, Sierra % (Auto) 7.9, Eos % (Auto) 5.9, Baso % (Auto) 0.5, Nucleat RBC Rel Count 0.2, Neut # (Auto) 6.6, Lymph # (Auto) 2.6, Sierra # (Auto) 0.8, Eos # (Auto) 0.6 [...] a creatinine of 1.64 correlating to EGFR, vbc-Kpfstjj-Whrpwbdr 32. This has not significantly changed over the last year but is lower than prior labs from 6322-6371. Most recent calcium within normal limits and [...] Moderate complexity visit of 35 minutes. 04/23/2022: Doreen complains of increased back pain over the [...] for coordination of care (as documented) and gjuu-sr-hqfq counseling of patient and/or family. Dictated By: Shanae Galicia APRN DD/ 1114 Signed By: <Electronically signed by LUCI Galicia> 04/23/22 8753 [facility] Work Phone: [phone]) [phone] Evaluation note* Encounter Date Diagnosis Assessment Notes Treatment Notes Treatment Clinical Notes Apr, Controlled substance agreement signed (ICD-10 - Z79.899) [facility] Other 01-09-2023 Evaluation note* Encounter Date Diagnosis Assessment Notes Treatment Notes Treatment Clinical Notes Apr, Unspecified vitamin D deficiency (ICD9-CM - 268.9) Apr, Type 2 diabetes mellitus with diabetic chronic kidney disease (ICD-10 - E11.22) [facility] Other 11-28-2022 Evaluation note* Encounter Date Diagnosis Assessment Notes Treatment Notes Treatment Clinical Notes Feb, Type 2 diabetes mellitus with diabetic chronic kidney disease (ICD-10 - E11.22) [facility] Other 11-08-2022 Evaluation note* Encounter Date Diagnosis Assessment Notes Treatment Notes Treatment Clinical Notes Feb, Controlled substance agreement signed (ICD-10 - Z79.899) Feb, Abdominal pain (ICD-10 - R10.9) [facility] Other 11-03-2022 Evaluation note* Encounter Date Diagnosis Assessment Notes Treatment Notes Treatment Clinical Notes Feb, Acquired lymphedema of lower extremity (ICD-10 - I89.0) [facility] Other 11-01-2022 Evaluation note* Encounter Date Diagnosis Assessment Notes Treatment Notes Treatment Clinical Notes Feb, Type 2 diabetes mellitus without complications (ICD-10 - E11.9) [facility] Other 10-31-2022 Evaluation note* Encounter Date Diagnosis Assessment Notes Treatment Notes Treatment Clinical Notes Jan, UTI (urinary tract infection) (ICD-10 - N39.0) [facility] Other 10-24-2022 Evaluation note* Encounter Date Diagnosis [...] well controlled on current medications, will continue [facility] Other 10-12-2022 Evaluation note* Encounter Date Diagnosis Assessment Notes Treatment Notes Treatment Clinical Notes Jan, Controlled substance agreement signed (ICD-10 - Z79.899) [facility] Other 09-12-2022 Evaluation note* Encounter Date Diagnosis Assessment Notes Treatment Notes Treatment Clinical Notes Dec, Other chronic pain (ICD-10 - G89.29) Was working on previous PCP to wean down on dosage of Phoenix 5-325. She currently is not taking this every day. She has upcoming f/u for a back injection and was recommended to consider pain management referral for RFA. Can continue use of Phoenix sparingly as needed for severe pain. I [...] ?diagnosis of narcolepsy in setting of TANYA. [facility] Other 08-19-2022 Evaluation note* Encounter Date Diagnosis Assessment Notes Treatment Notes Treatment Clinical Notes Nov, Essential hypertension (ICD-10 - I10) [facility] Other 07-14-2022 Progress note Author Roxane Bills [facility] October 24, 2021 2:26pm Note Date/Time October 23, 2021 1:18 pm [facility] [place] [address] Hem/Onc Follow Up Note - OP Signed Patient: Doreen Turcios MR#: [id number] : 1960 Acct:[id number] Age/Sex: 61 / F Type: REG RCR Copies to: DO Giovanni Deleon D.O.~ Subjective Date/Time of Service: Date of Service: 10/23/2021 Time of Service: 13:17 Chief Complaint: Patient is here today for 6 week follow up visit to go over bone marrow biopsy. HPI: 10/23/2021: Doreen is here for follow-up of image guided [...] a creatinine of 1.64 correlating to EGFR, kuo-Hjsbawb-Eepoodry 32. This has not significantly changed over [...] a creatinine of 1.64 correlating to EGFR, iph-Rkgyynl-Qvvfnrlu 32. This has not significantly changed over the last year but is lower than prior labs from 4284-8123. Most recent calcium within normal limits and [...] for coordination of care (as documented) and mtdj-vu-potn counseling of patient and/or family. Dictated By: Roxane Bills MD DD/ 1317 Signed By: <Electronically signed by MD Roxane Bills> 10/24/21 1426 [facility] Work Phone: [phone]) [phone] Evaluation note* Encounter Date Diagnosis Assessment Notes [...] repeat the chemistry panel at this time. [facility] Other 06-23-2022 Evaluation note* Encounter Date Diagnosis Assessment Notes Treatment Notes Treatment Clinical Notes Sep, Anemia NOS (ICD9-CM - 285.9) [facility] Other 06-09-2022 Evaluation note* Encounter Date Diagnosis Assessment Notes Treatment Notes Treatment Clinical Notes Sep, Type 2 diabetes mellitus with diabetic chronic kidney disease (ICD-10 - E11.22) [facility] Other 06-01-2022 Progress note Author Roxane Bills [facility] September 11, 2021 2:34pm Note Date/Time September 11, 2021 10:47 am [facility] [place] [address] Hem/Onc Follow Up Note - OP Signed Patient: Doreen Turcios MR#: [id number] : 1960 Acct:[id number] Age/Sex: 60 / F Type: REG RCR [...] a creatinine of 1.64 correlating to EGFR, qmd-Vlduaib-Upvjrzdd 32. This has not significantly changed over [...] glargine 100 unit/mL (3 mL) subcutaneous pen (Bradleyar KristyPen U-100 Insulin) 15 unit SUBCUT QAM [...] a creatinine of 1.64 correlating to EGFR, acm-Mulmcwr-Osjbujmz 32. This has not significantly changed over the last year but is lower than prior labs from 7529-6623. Most recent calcium within normal limits and [...] for coordination of care (as documented) and vsto-gi-jehl counseling of patient and/or family. Dictated By: Roxane Bills MD DD/ 1045 Signed By: <Electronically signed by MD Roxane Bills> 09/11/21 1430 [facility] Work Phone: [phone]) [phone] Evaluation note* Encounter Date Diagnosis Assessment Notes [...] back surgery. She reports prior injections at [facility] with Dr. Groves. She feels pain can [...] negative findings were considered in medical decision-making. [facility] Other 05-07-2022 Consult note Author Roxane Bills [facility] August 16, 2021 10:27pm Note Date/Time August 16, 2021 10:19a [facility] [place] [address] Hem/Onc Consult Note - OP Signed Patient: Doreen Turcios MR#: [id number] : 1960 Acct:[id number] Age/Sex: 60 / F Type: REG RCR [...] a creatinine of 1.64 correlating to EGFR, vqv-Khzzfel-Qovkircc 32. This has not significantly changed over [...] history of malignancy, chemotherapy, or radiation therapy. [facility] - History Attestation statement: The following [...] a creatinine of 1.64 correlating to EGFR, jpf-Kzrvomj-Fsnpbjsx 32. This has not significantly changed over the last year but is lower than prior labs from 6576-0286. Most recent calcium within normal limits and [...] for coordination of care (as documented) and xglq-wg-qmcf counseling of patient and/or family. Dictated By: Roxane Bills MD DD/ 1019 Signed By: <Electronically signed by MD Roxane Bills> 08/16/21 4820 [facility] Work Phone: [phone]) [phone] Evaluation note* Encounter Date Diagnosis Assessment Notes [...] the patient did have an MRI at [facility] about 1 year ago. This showed [...] Percocet multiple times a day from the [facility]. I have gradually weaned her dose down and I explained her that my plan is to continue to wean the dose down as I do not typically treat chronic pain with opiates. She has been cooperative with this. She may get opinion from her neurologist or when she establishes with pain management. Jul, Other chronic pain (ICD-10 - G89.29) [facility] Other 04-27-2022 Evaluation note* Encounter Date Diagnosis Assessment Notes Treatment Notes Treatment Clinical Notes Jul, Acquired lymphedema of lower extremity (ICD-10 - I89.0) Jul, Type 2 diabetes mellitus with diabetic chronic kidney disease (ICD-10 - E11.22) [facility] Other 04-11-2022 Evaluation note* Encounter Date Diagnosis [...] ahead and recheck it in 3 months. [facility] Other 03-15-2022 Evaluation note* Encounter Date Diagnosis Assessment Notes Treatment Notes Treatment Clinical Notes Jun, Acquired lymphedema of lower extremity (ICD-10 - I89.0) [facility] Other 03-10-2022 Evaluation note* Encounter Date Diagnosis [...] compression stockings, keeping legs elevated, and activity. [facility] Other 02-23-2022 Evaluation note* Encounter Date Diagnosis Assessment Notes Treatment Notes Treatment Clinical Notes May, Type 2 diabetes mellitus with diabetic chronic kidney disease (ICD-10 - E11.22) [facility] Other 02-10-2022 Evaluation note* Encounter Date Diagnosis Assessment Notes Treatment Notes Treatment Clinical Notes May, Acquired lymphedema of lower extremity (ICD-10 - I89.0) [facility] Other 02-10-2022 Evaluation note* Encounter Date Diagnosis [...] will work-up further. Follow-up in 4 weeks. [facility] Other 02-02-2022 Evaluation note* Encounter Date Diagnosis Assessment Notes Treatment Notes Treatment Clinical Notes May, Unspecified vitamin D deficiency (ICD9-CM - 268.9) [facility] Other 01-19-2022 Evaluation note* Encounter Date Diagnosis [...] following her next appointment with vascular surgery. [facility] Other 12-21-2021 Evaluation note* Encounter Date Diagnosis [...] stop it altogether at this point. 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 [facility] Other 11-17-2021 Evaluation note* Encounter Date Diagnosis Assessment Notes Treatment Notes Treatment Clinical Notes Feb, Encounter for screening mammogram for malignant neoplasm of breast (ICD-10 - Z12.31) [facility] Other [facility]No [facility] Other evaluation note* Diagnosis Onset Date Resolution Status Monoclonal gammopathy acute Degenerative joint disease of cervical and lumbar spin e acute Iron deficiency anemia acute Bipolar disorder with depression chronic CKD (chronic kidney disease) stage 3, GFR 30-59 ml/min chronic COPD (chronic obstructive pulmonary disease) chronic Diabetes chronic Morbid obesity chronic 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 [facility] Work Phone: evaluation noteNo assessment information available [facility] Work Phone: evaluation note* Diagnosis Onset Date Resolution Status Degenerative joint disease of cervical and lumbar spin e acute Iron deficiency anemia acute Bipolar disorder with depression chronic CKD (chronic kidney disease) stage 3, GFR 30-59 ml/min chronic COPD (chronic obstructive pulmonary disease) chronic Diabetes chronic Morbid obesity chronic 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 [facility] Work Phone: evaluation note* Diagnosis Onset Date Resolution Status Degenerative joint disease of cervical and lumbar spin e acute Bipolar disorder with depression chronic CKD (chronic kidney disease) stage 3, GFR 30-59 ml/min chronic COPD (chronic obstructive pulmonary disease) chronic Diabetes chronic Iron deficiency anemia chron ic Morbid obesity chronic 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 Work Phone: Evaluation note* Diagnosis Onset Date Resolution Status Debility acute Inflammation acute Irritable bowel disease [...] both lower extremities acute Venous reflux acute [facility] Work Phone: History general Narrative - Reported* Type Description Date Medical History asthma Medical History diabetes mellitus II Medical History sleep apnea Medical History Hypertension Medical History spinal stenosis Medical History COPD Medical History GERD Medical History anxiety Surgical History right and left Foot Surgery 06/12 Surgical History hysterectomy 2010 Surgical History cholecystectomy 2009 Surgical History C section x 4 Hospitalization History see above Hospitalization History child x 4 Hospitalization History [facility] [employer] Other Hisesea general [facility] - [facility] Other Hiszzwl general Narrative - Reported* Type Description Date [...] Hospitalization History child x 4 Hospitalization History [facility] Other Hospital Discharge instructions Additional Instructions POST [...] worsening of your eyesight. Please call your door core assembler during normal business hours. If after business hours call Dr. Nik Pineda at his cell [phone] or his office [phone].[facility] Work Phone: Progress note Author Shanae Galicia [facility] April 23, 2022 12:40pm Note Date/Time April 23, 2022 1 1:14[facility] [place] [address] Hem/Onc Follow Up Note - OP Signed Patient: Doreen Turcios MR#: [id number] : 1960 Acct:[id number] Age/Sex: 61 / F Type: REG RCR Copies to: MD Brenden Manzo DO Kevin T Carnahan, D.O.~ Subjective Date/Time of Service: Date of Service: 04/23/2022 Time of Service: 11:14 Chief Complaint: Patient is here for a 6 month follow up with labs 04/17/2022 for review. No concerns voiced at this time. HPI: 04/23/2022: Doreen presents for follow-up for her MGUS and [...] will be in 3mowith repeat labs. 10/23/2021: Doreen is here for follow-up of image guided [...] a creatinine of 1.64 correlating to EGFR, pka-Rxtkymu-Vgtdrylh 32. This has not significantly changed over [...] 3.4, Globulin (PEP) 3.9, Albumin/Globulin (PEP) 0.9, Phjdm-9-Nhetsokes 0.3, Cgraj-4-Olkyiqayv 0.9, Beta Globulins 1.4 H, Gamma Globulins 1.3, M-Damien 0.4 H, PEP Note , IgG 1443, IgA 625 H, IgM 98, Free [place] LC, Quant 162.6 H, Free Lambda LC, Quant 44.5 H, Free [place]/Lambda Ratio 3.65 H 04/17/22 10:05: PHA Creatinine [...] % (Auto) 61.2, Lymph % (Auto) 24.5, Sierra % (Auto) 7.9, Eos % (Auto) 5.9, Baso % (Auto) 0.5, Nucleat RBC Rel Count 0.2, Neut # (Auto) 6.6, Lymph # (Auto) 2.6, Sierra # (Auto) 0.8, Eos # (Auto) 0.6 [...] a creatinine of 1.64 correlating to EGFR, rgu-Mhmvqoq-Yvjlqdrr 32. This has not significantly changed over the last year but is lower than prior labs from 9832-9384. Most recent calcium within normal limits and [...] Moderate complexity visit of 35 minutes. 04/23/2022: Doreen complains of increased back pain over the [...] for coordination of care (as documented) and tcoc-op-cmnj counseling of patient and/or family. Dictated By: Shanae Galicia APRN DD/ [id number] Signed By: <Electronically signed by LUCI Galicia> 04/23/22 1240 [facility] Work Phone: Progress note Author Erica Diehl [facility] May 12, 2023 8:28am Note Date/Time May 12, 2023 8 :28am [facility] [address] [place] [address] Wound Center Provider Note Signed Patient: Doreen Turcios MR#: [id number] : 1960 Acct:[id number] Age/Sex: 62 / F Copies to: Peri Tyson, DO Erica Diehl, MANAGER MALL~ HPI Date of Visit Date of Visit: Date of Service: 05/12/2023 Time of Service: 08:22 Narrative HPI: 04/28/23 Doreen is a 62-year-old [facility] [...] has changed at all. I did tell Doreen that I would like her to see a manager r d, especially if the venous studies do not [...] any signs of acute infection attoday's visit. 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 Lives with:: Spouse Appetite Description: Within Normal Limits Smoking Status: Never smoker [facility] Medical History (Updated 05/12/23 @ 08:27 [...] By: <Electronically signed by LUCI Diehl> 05/12/23827 [facility] Work Phone: Reason for visit Narrativediscuss pain management [facility] Other Rehwpc for visit NarrativeNeurosurgery Referral Update [facility] Other Reason for Referral Reason left hip pain Diagnosis 1 Left hip pain (M25.5 52) Referral Organization [facility] Family Doretha Valadez Referring Provider First Name Peri Referring Provider Last Name [facility] Referring Provider Specialty [facility] Tk20 Referred Organization [facility] Referred Address ,[place], [place],[address] Referred Provider Specialty Orthopaedic Surgery Referral Priority Routine Reason CANCELLED Excessiv e daytime somnolence, hx narcolepsy diagnosis, currently on CPAP for TANYA Diagnosis 1 TANYA (obstructive sle ep apnea) (G47.33) Referral Organization [facility] Family Doretha Valadez Referring Provider First Name Peri Referring Provider Last Name Marbella Referring Provider Specialty [facility] Tk20 Referred Organization [facility] Referred Address [address] [place], [place],[address] Referred Provider Specialty Sleep Medici ne Referral Priority Routine General Notes Elaina Salcido 03/2022 02:41:07 PM > referral received, Feli already faxed referral to Central Scheduling. Closing referral Reason * Waiting for appt neurology records pending Diagnosis 1 Low back pain, unspe cified (M54.50) Referral Organization [facility] Family Doretha Valadez Referring Provider First Name Giovanni Referring Provider Last Name Josh Referring Provider Specialty [facility] Tk20 Referred Organization [facility] Pain Managemen t Referred Provider Nicko Mckeon Referred Address [address] [facility],[place] [address] ,[place], [place],[address] Referred Provider Specialty Pain Medicin e Referral Priority Routine General Notes Elaina Salcido Fina 01:53:26 PM > referral received and sent p2p successful per log Reason * FU 07/29 ulcer Diagnosis 1 Non-pressure chronic ulcer of unspecified part of unspecified lower leg with unspecified severity (L97.909) Referral Organization [facility] Family Medicin e Frank Referring Provider First Name Giovanni Referring Provider Last Name Josh Referring Provider Specialty Family Medi cine Referred Organization [facility] Wound Ca re Hyperbaric Referred [place],[address] Referred Provider Specialty Wound Care Referral Priority Routine General Notes Elaina Salcido Fina 02/2022 11:28:18 AM > referral received and [...] gammopathy of unknown significance (MGUS) Chief Complaint d47.2 I73.9 Abnormal SPEP Open Wound ble [...] veins of both lower extremities Venous reflux Chief Complaint ble ulcers ble varic ose veins ble edema Open Wound VENOUS INSUFF WITH ULCERS VENASEAL RT LEG GSV Reason for Visit Debility Inflammation Irritable bowel disease On home oxygen therapy Peripheral edema Ulcer of left lower leg Ulcer of right lower leg Venous reflux CKD (chronic kidney disease) stage 3, GFR 30-59 ml/min COPD (chronic obstructive pulmonary disease) Diabetes Morbid obesity TANYA (obstructive sleep apnea) Venous stasis dermatitis of both lower extremities Symptomatic varicose veins of both lower extremities Venous reflux Family History No Family History Records Found [...] Unknown sister Diabetes mellitus Unknown Advance Directives No Advanced Directives Records Found Advance Directive Response Recorded Date/ Time Advance Directives No March 10:19am Advance Directive Response Recorded Date/ Time Advance Directives No March 9:19am Advance Directive Response Recorded Date/ Time Advance Directives No May 12, 2023 10:11am Advance Directive Response Recorded Date/ Time Advance Directives No May 12, 2023 11:11am Summary Purpose Additional Source Comments REASON FOR VISIT (unrecogniz ed section and content) Reason Comments Med Refill Care Teams (unrecognized sec tion and content) Team Status: Active Member Role Status Alyssa Tyson DO Primary Care Provider Active Team [...] 2023 End: May 27, 2023 Team Status: Inactive Member Role Status Alyssa Tyson DO Primary Care Provider Active Start: July 01, 2023 End: July 01, 2023 Cresencio Chappell MD Attending Provider Active Start: July 01, 2023 End: July 01, 2023 Team Status: Active Member Role Status Alyssa Bills MD Attending Provider Active Start: March [...] Dates Peri Tyson , DO Primary Care Provide r, Attending Provider [...] Dates Roxane Bills MD Active Mohan Groves DO Referring Provider Active Peri Tyson , [...] Moreno , DO Primary Care Provider Active Periluis Tyson , DO Attending Provider Active Team [...] DO Primary Care Provider Active Shanae Galicia , MANAGER MALL Active Team Status: Inactive Member Role Status Dates Peri Tyson , DO Primary Care Provider Active Roxane Bills MD Attending Provider Active Insurance Claims Assistant Relationship Specialty Start Date End Date Giovanni Moreno MD [address] [place] [address] PCP - General Family Medicine 09/18/22 Goals (unrecognized section and content) Goals may be documented in a n alternate section INFORMATION SOURCE (unrecogn ized section and content) DATE CREATED AUTHOR 07/15/2022 [facility] DATE CREATED AUTHOR AUTHOR'S ORGANIZ ATION 07/05/2023 [facility] DATE CREATED AUTHOR AUTHOR'S ORGANIZ ATION 07/08/2023 [facility] FOR RECORDS PERTAINING TO PATIENTS WHO ARE [...] BE BASED ON THE PRIMARY CLINICAL RECORDS. [facility] GENERAL MEDICAL [facility]. provides no warranty or guarantee of the accuracy or completeness of information in this document.
[2023-07-28 07:52] LABS: Glucometer 65 mg/dL (74-106)
[2023-07-28 07:54] VITALS: BP 120/71; PULSE 80; TEMP 36.7; O2SAT 97
[2023-07-28 08:56] VITALS: BP 198/79; PULSE 65; O2SAT 93
[2023-07-28 08:57] VITALS: BP 161/69; PULSE 65; O2SAT 94
[2023-07-28] MEDS: BUPIVACAINE HCL 0.25% PF 25 MG/10 ML VIAL 4 ML INJ (09:01)
--- NOTE | 2023-07-28 09:06 | PC.NURSE ---
pt given orange juice
--- NOTE | 2023-07-28 09:25 | W.PM.PROCNOT ---
Date of procedure: 07/28/23 Pre-op diagnosis: Right superior gluteal neuritis Post-op diagnosis: same as pre-op Procedure: Right Superior gluteal nerve block, diagnostic Performed under fluoroscopic guidance Immediate complications none Anesthesia: none Solution used for injection: In each syringe, 2 milliliters 0.25% Marcaine 2.5 mL is used for injection for each side Time out process compliant After informed consent obtained patient was brought to the procedure room placed in the prone position skin overlying the area was prepped and draped in a sterile fashion using betadine. 25 gauge spinal needle Insert over each of the target areas identified in fluoroscopy corresponding needles were advanced Under fluoroscopic guidance until the target/targets encountered, no indication of intravascular or Intraneuronal needle tip placement. Solution injected.needles removed post procedurally. patient transferred to recovery room in stable condition to be discharged home after meeting criteria Anesthesia: Local Surgeon: Ang Murphy Condition: stable
== END 2023-07-28 09:06 | disposition home or self-care (01) ==
LOC: SURGOUT 07:22
PROVIDERS: Visit Provider Anesthesiology Pain Medicine
DX: G57.81 Other specified mononeuropathies of right lower limb (principal)
CPT/HCPCS: 36415; 64450; 82948

== ENCOUNTER 2023-08-06 08:16 | Outpatient (OUT) | payer OTHER, SELFPAY ==
--- NOTE | 2023-08-06 08:20 | PM.CN ---
Consult Note: HPI Data of Consult Patient: known to practice within the last 3 years Requesting Physician: Rachana London NP Primary Care Provider: [facility] Consult Narrative Reason for consult: f/u Narrative: Kelsea villatoro pleasant 62 year old female presents for evaluation and management of chronic low back pain. Patient notices increase in pain with walking and activity. Patient does get numbness tingling and weakness in bilateral legs, pain relieved with rest and leaning forward. Has been evaluated by NS and deemed non surgical, following with ortho currently as well. Patient would like to discuss additional options today. PT completed without benefit. Pain today / in low back with numbness tingling and weakness in bilateral legs. Recently underwent right superior gluteal nerve block with >80% improvement in pain and functional ability for 2 hours, increased ability to ambulate and walk with less pain. cc:: CC: Rachana London NP Review of Systems ROS Status of ROS 10 or more systems reviewed and unremarkable except as noted in history and below Musculoskeletal Reports: back pain, neck pain, extremity swelling and joint pain Meds Home Medications and Allergies Home Medications ?Medication ?Instructions ?Recorded ?Confirmed ?Type allopurinol 300 mg tablet 300 mg PO DAILY 10/30/22 07/28/23 History amlodipine 5 mg tablet (Norvasc) 5 mg PO DAILY 10/30/22 07/28/23 History benzonatate 100 mg capsule 100 mg PO TID 10/30/22 07/28/23 History brexpiprazole 3 mg tablet (Rexulti) 3 mg PO DAILY 10/30/22 07/28/23 History budesonide-formoterol HFA 160 2 inh inhalation BID 10/30/22 07/28/23 History mcg-4.5 mcg/actuation aerosol inhaler (Symbicort) carvedilol 25 mg tablet 25 mg PO BID 10/30/22 07/28/23 History cholecalciferol (vitamin D3) 50 2,000 unit PO BID 10/30/22 07/28/23 History mcg (2,000 unit) capsule colestipol 1 gram tablet 1 g PO BID 10/30/22 07/28/23 History dicyclomine 20 mg tablet 20 mg PO QID 10/30/22 07/28/23 History doxycycline hyclate 100 mg capsule 100 mg PO DAILY 10/30/22 07/28/23 History duloxetine 60 mg capsule,delayed 60 mg PO DAILY 10/30/22 07/28/23 History release (Cymbalta) furosemide 40 mg tablet 40 mg PO DAILY 10/30/22 07/28/23 History hydroxyzine HCl 10 mg tablet 10 mg PO Q8H 10/30/22 07/28/23 History insulin glargine 100 unit/mL (3 20 unit subcut DAILY 10/30/22 07/28/23 History mL) subcutaneous pen (Lantus Solostar U-100 Insulin) ipratropium 0.5 mg-albuterol 3 mg 3 ml inhalation Q6H 10/30/22 07/28/23 History (2.5 mg base)/3 mL nebulization soln ipratropium bromide 0.02 % 0.5 mg inhalation Q6H PRN 10/30/22 07/28/23 History solution for inhalation shortness of breath or wheezing levomilnacipran 120 mg capsule,24 120 mg PO DAILY 10/30/22 07/28/23 History hr,extended release (Fetzima) levothyroxine 50 mcg capsule 50 mcg PO DAILY 10/30/22 07/28/23 History magnesium oxide 500 mg PO DAILY 10/30/22 07/28/23 History mirtazapine 30 mg tablet 30 mg PO DAILY 10/30/22 07/28/23 History montelukast 10 mg tablet 10 mg PO DAILY 10/30/22 07/28/23 History (Singulair) omeprazole 40 mg capsule,delayed 40 mg PO DAILY 10/30/22 07/28/23 History release oxybutynin chloride 10 mg 10 mg PO DAILY 10/30/22 07/28/23 History tablet,extended release 24 hr sucralfate 1 gram tablet 1 g PO TID 10/30/22 07/28/23 History theophylline 200 mg 200 mg PO DAILY 10/30/22 07/28/23 History capsule,extended release 24 hr (Nishant-24) tizanidine 4 mg capsule (Zanaflex) 4 mg PO BID PRN muscle spasticity 10/30/22 07/28/23 History gabapentin 300 mg capsule 900 mg PO .HS 02/10/23 07/28/23 History gabapentin 600 mg tablet 600 mg PO .NOON 02/10/23 07/28/23 History hydrocodone 5 mg-acetaminophen 325 1 tab PO TID PRN pain #90 tabs 03/04/23 07/28/23 Rx mg tablet gabapentin 600 mg tablet 900 mg PO .AM 07/21/23 07/28/23 History Allergies Allergy/AdvReac Type Severity Reaction Status Date / Time honey Allergy Severe Anaphylaxis Verified 07/28/23 07:48 codeine Allergy Mild itching Verified 07/28/23 07:48 morphine AdvReac Vomiting Verified 07/28/23 07:48 Exam Constitutional Documenting provider has reviewed patient's vital signs: yes Common normals: no apparent distress, oriented x3, healthy appearing, alert and well nourished General appearance: cooperative Nutritional appearance: obese HENMT Common normals: normocephalic, hearing grossly normal bilaterally and moist oral mucous membranes Head and scalp: normocephalic Eye Common normals: PERRL Pupil: PERRL Neck & C-Spine Common normals: full ROM General: normal visual inspection Chest Common normals: inspection of chest normal Respiratory Common normals: normal respiratory effort, no retractions and no use of accessory muscles Other: chronic O2 Back & Pelvis Lumbar spine/lower back: ROM limited, pain with ROM and straight leg raise negative bilaterally Sacroiliac joints: SI joint(s) abnormal (right SIJ tender over PSIS, positive gabi, thigh thrust and gaenslens. ) Other: intermittent numbness tingling and weakness to bilateral legs chronic low back pain positive facet loading bilaterally pain over right superior gluteal nerve Extremity Common normals: normal to inspection Neuro Common normals: oriented x3, CN's II-XII intact bilaterally, moves all extremities, no focal motor deficits, no sensory deficits noted and deep tendon reflexes 2+ bilaterally Sensorium/orientation: alert Gait (neuro): antalgic and assistive device used walker Motor exam: strength 5/5 throughout and no movement abnormalities noted Psych Common normals: mental status grossly normal, thought process normal, cooperative, affect normal, speech normal and activity/motor behavior normal Speech: normal speech Thought process: normal thought process Results Additional Findings Additional findings: If on a controlled substance or opioids, I have checked an [place]AR[place] report on this patient and there are no aberrancies noted in the prescribing history.??If on a controlled substance or opioid a drug screen was completed and reviewed within the last year, and if there has not been a drug screen completed we ordered one today to monitor higher risk, state monitored pain medication use. As part of providing excellent, safe, comprehensive care, the following was completed at our patient's visit: 1. A medication reconciliation and review to ensure accurate knowledge of current/active medications, including asking our patients to inform us about any xcvy-oji-jadjyrm medications or herbal remedies/nutritional supplements/alternative remedies. 2. A review to specifically ensure our patients have had annual screening for screening for depression, screening for tobacco use, and screening for unhealthy alcohol use. For concerning screenings had a discussion with the patient, provided patient education, and recommended follow-up with primary care provider when appropriate. If patient noted with a risk of falling, they received education on strength, gait, and balance training to prevent future risk of falling. Assessment and Plan Assessment and Plan (1) Unspecified mononeuropathy of right lower limb: Assessment and Plan: right superior gluteal neuritis (2) Lumbar stenosis with neurogenic claudication: (3) Lumbar spondylosis: (4) Muscle spasm: (5) Encounter for long-term use of opiate analgesic: Assessment and Plan: I feel these medications are improving the patient's quality of life and allow them to tolerate activities of daily living as well as participate in recreational activity.? The patient does not report intolerable side effects. The patient is NOT opioid naive and non-pharmacologic and non-opioid treatment has failed to significantly relieve the patient's pain and improve functionality. The patient has a diagnosis that is related to a somatic or visceral pain etiology. ? ?? I reviewed with the patient the potential risks and side effects with the use of? opioid medications including but not limited to respiratory depression,? sedation, and even . I verified the patient has access to naloxone should? these effects occur. I advised the patient to avoid the use of any other? sedation substances including alcohol, THC, and benzodiazepines while? taking opioid medications due to the risk of compounding side effects and? detrimental outcomes. I reviewed the MOBILITY ARCHITECT MANAGER, pain treatment agreement, urine? drug screen, and opioid start talking forms. The patient was advised to let? their family know they had Naloxone in case they would need to administer? the medication.? ?? A drug screen was completed within the last year, and no aberrancies were noted regarding their use of controlled substances. The patient understands they are subject to the terms and conditions of the pain contract that they have signed. ? ?? I have checked an [place]AR[place] report on this patient today and there are no aberrancies noted in the prescribing history.? (6) Diabetes: Assessment and Plan: recent A1c 9.1%, caution ESIs (7) On home oxygen therapy: Assessment and Plan: utilizing 4-5L NC Plan right superior gluteal nerve thermal RFA under fluoroscopy continue current medications, tolerating well without side effects. risks vs benefits discussed, patient very high risk for opioid therapy would not recommend increasing caution additional ESIs at this time, recent A1c 9.1% per pt consider vertiflex for lumbar stenosis with NC, if no hx of osteoporosis f/u 1 month after completion of RFA
--- OUTSIDE RECORDS SUMMARY | 2023-08-06 08:23 | XMS_ITS | CCD ---
Author Organization [facility] Care Team Providers Care Form Tamper Operator Name Role Phone Giovanni Moreno Unavailable Domenico Whitmore Unavailable Nicko Mckeon Unavailable Adore Barroso Unavailable Josafat Nunes Unavailable DO Giovanni Moreno Primary Care Provider [phone] MD Roxane Bills Attending Provider DO Giovanni Moreno Attending Provider DO Mohan Groves Referring Provider [phone] DO Peri Tyson Attending Provider Peri Tyson Unavailable DO Giovanni Moreno Primary Care Provider DO Giovanni Moreno Primary Care Provider DO Peri Tyson Attending Provider MD Marcus Cummins Attending Provider DO Peri Tyson Primary Care Provider [phone] DO Svetlana Garcia Referring Provider DO Giovanni Moreno Primary Care Provider [phone] DO Peri Tyson Attending Provider MD Roxane Bills Attending Provider DO Mohan Groves Referring Provider [phone] Marbella DO Peri A Primary Care Provider Marbella DO Peri A Attending Provider MD Roxane Bills Attending Provider DO Mohan Groves Referring Provider [phone] Lulú Ruth Unavailable VIJAY ., DR SANAM [...] Provider Tyson DO Peri A Attending Provider [phone] MD Domenico Whitmore Attending Provider DO Mohan Groves Referring Provider LUCI Galicia Attending Provider MD Jeannie Aguilar Attending Provider Marbella DO Peri A Primary Care Provider NON STAFF Attending Provider Unavailable Tyson DO Peri A Attending Provider Marbella, DO [...] Attending Provider MD Roxane Bills Attending Provider [phone] DO Brenden Groves Referring Provider Tyson, DO Peri A Primary Care Provider MD Truong Ward Attending Provider [phone] Tyson, DO Peri A Attending Provider [phone] LUCI Diehl Attending Provider Tyson, DO Peri A Primary Care Provider LUCI Diehl Attending Provider [phone] Giovanni Moreno MD Primary Care Provider [phone] MD Roxane Bills Attending Provider Tyson, DO Peri A Primary Care Provider MD Truong Ward Attending Provider Tyson, DO Peri A Primary Care Provider LUCI Diehl Attending Provider MACK PRIDE Attending Unavailable MACK PRIDE Attending Unavailable MD Jeannie Aguilar Attending Provider Tyson, Peri A Primary Care Unavailable Turong Ward Attending Unavailab le Truong Ward Admitting [...] Ahmad Attending Unavailable Jeff, Ahmad Admitting Unavailable Tyson, Peri A Primary Care Unavailable Jeff, Ahmad Attending Unavailable Jeff, Ahmad Admitting Unavailable Lakshmipathy, Narendranath Attending Unava ilable Lakshmipathy, Narendranath Admitting Unava ilable Tyson, Peri A Primary Care Unavailable Tyson, Peri A Primary Care Unavailable Nik Pineda Attending Unavailable Nik Pineda Admitting Unavailable Tyson, Peri A Primary Care Unavailable Tyson, Peri A Attending Unavailable Tyson, Peri A Admitting Unavailable Tyson, Peri A Primary Care Unavailable Clayton Josuein Luis Attending Unavailable Clayton Josuein Luis Admitting Unavailable Tyson, Peri A Primary Care Unavailable Nik Pineda Attending Unavailable Nik Pineda Admitting Unavailable Allergies Allergy Classification Reported Allergen(s) Allergy Type Date of Onset Reaction(s) Facility (20 sources) Codeine Drug Allergy 10-24-19 22 Itching [facility] (20 sources) Honey Propensity to adverse reactions 09-08-19 20 anaphylaxis [facility] (20 sources) Morphine Drug Allergy 10-24-19 22 Rash [facility] (1 source) Codeine Drug Allergy 11-15-19 17 [facility] (1 source) Honey Drug allergy (disorder) 11-15-19 17 [facility] (1 source) Morphine Drug Allergy 11-15-19 17 [facility] (20 sources) traMADol Drug Allergy 12-19-19 23 hallucinations, Unknown Reaction, Hallucinating, Hallucinating, hallucinations [facility] (1 source) Morphine Drug Allergy Unknown [facility] Other (1 source) Codeine Drug Allergy 07-29-19 [facility] (1 source) Honey Drug allergy (disorder) 07-29-19 [facility] (1 source) Morphine Drug Allergy 07-29-19 [facility] (1 source) traMADol Drug Allergy 07-29-19 [facility] Medications Current Medications Medication Drug Class(es) Dates Sig (Normalized) Sig (Original) acetaminophen 325 mg / HYDROcodone bitartrate 5 mg oral tablet (20 sources) Opioid Agonist Start: 11-04-2021 take 0.5-1 tablets by mouth once daily as needed [place] 5-325 MG 1/2 to 1 tablet as needed Orally daily for 30 days Oct, Active Start: 11-01-2021 take 0.5-1 tablets b y mouth once daily as needed [place] 5-325 MG 1/2 to 1 tablet as needed Orally daily for 30 days Oct, Active Start: 10-02-2021 take 0.5-1 tablets b y mouth once daily as needed [place] 5-325 MG 1/2 to 1 tablet as needed Orally daily for 30 days Sep, Active Start: 09-02-2021 take 0.5-1 tablets b y mouth once daily as needed [place] 5-325 MG 1/2 to 1 tablet as needed Orally daily for 30 days August, Active Start: 07-03-2021 take 1 tablet by jocelin twice daily as needed [place] 5-325 MG 1 tablet as needed Orally twice a day for 30 days Jun, Active Start: 06-05-2021 take 1 tablet by jocelin twice daily as needed [place] 5-325 MG 1 tablet as needed Orally twice a day for 30 days May, Active Start: 04-30-2021 take 1 tablet by jocelin twice daily as needed [place] 5-325 MG 1 tablet as needed Orally twice a day for 30 days Apr, Active Start: 04-29-2021 take 1 tablet by jocelin twice daily as needed [place] 5-325 MG 1 tablet as needed Orally twice a day for 30 days Apr, Active Start: 03-25-2021 take 1 tablet by jocelin twice daily as needed [place] 5-325 MG 1 tablet as needed Orally [...] by jocelin th twice daily as needed [place] 5-325 MG 1 tablet as needed Orally twice a day Active [id number] 200 actuat albuterol 0.09 mg/actuat metered dose [...] Sulfate Discontinued 2.5 MG INHALATION Q3H 30 December 26, 2016 12:00am April 17, [...] MG PO Every morning January 24, 2018 12:00June 15, 2023 9:10am Start: 12-16-2016 End: 12-26-2016 take 1 tablet by mouth at bedtime Amlodipine Discontinued 1 TAB PO Bedtime December 16, 2016 12:00am December 26, 2016 12:19pm amoxicillin 500 mg oral tablet (6 sources) Penicillin-class Antibacterial Start: 02-10-2022 take 1 tablet by mouth every eight hours Asenapine (20 sources) Atypical Antipsychotic Start: 07-01-2023 take 5 mg under the tongue once daily at bedtime Asenapine Maleate Active 5 MG SUBLINGUAL Daily at bedtime July 01, 2023 12:00am take 5 mg under the tongue every twelve hours Saphris SL tablet Place 5 mg under the tongue every 12 (twelve) hours. 0 Active aspirin 81 mg delayed release oral tablet (20 sources) Platelet Aggregation Inhibitor, Nonsteroidal Anti-inflammatory Drug Start: 07-01-2023 take 81 mg by mouth once daily Aspirin Active 81 MG PO Daily July 01, 2023 12:00am Start: 12-19-2016 End: 12-26-2016 take 81 mg by mouth once daily Aspirin Discontinued 81 MG PO Daily December 19, 2016 12:00am December 26, 2016 12:47pm benzonatate 100 mg oral capsule (20 sources) [...] Start: 06-30-2022 take 1 capsule by mo [facility] three times daily as needed benzonatate (Tessalon) 100 MG capsule TAKE 1 CAPSULE BY MOUTH THREE TIMES A DAY NEEDED FOR 5 DAYS 0 02/06/2023 Active BIPAP Machine (20 sources) BIPAP Machine Ac tive brexpiprazole 3 mg oral tablet (20 sources) Atypical Antipsychotic Start: 07-01-2023 take 3 mg by mouth once daily Brexpiprazole Active 3 MG PO Daily July 01, 2023 12:00am Start: 08-21-2022 take 1 tablet by jocelin th in the morning Rexulti 4 MG tablet Take 1 tablet by mouth in the morning. 0 08/21/2022 Active Start: 01-24-2018 End: 07-01-2023 take 1 tablet by mouth once daily in the morning Brexpiprazole (Rexulti) 2 mg Tablet Discontinued 3 MG PO Every morning January 24, 2018 12:00am July 01, 2023 4:13pm Start: 12-16-2016 End: 04-17-2017 take 1 tablet [...] Once a day for 30 days Active Carboxymethylcellulose (13 sources) Start: 07-01-2023 carboxymethylc ellulose sodium (Refresh Tears) Active OPHTHALMIC July 01, 2023 12:00am Start: 03-18-2023 take 1 drop(s) into the eye(s) three times daily as needed Refresh Tears 0.5 % ophthalmic solution INSTILL 1 DROP INTO EACH EYE 3 TIMES A DAY NEEDED 30 DAYS 0 03/18/2023 Active Refresh Tears 0. 5 % INSTILL 1 DROP INTO EACH EYE 3 TIMES A DAY NEEDED 30 DAYS for 30 Active Carboxymethylcellulose Sodium (Refresh Tears) 0.5 % drops (2 sources) Start: 07-08-2023 take 1 drop(s) into the eye(s) twice daily Carboxymethylcellulose Sodium (Refresh Tears) 0.5 % drops Active 2 DROPS EYE-BOTH Twice daily July 08, 2023 12:00am carvedilol 25 mg oral tablet (20 sources) alpha-Adren ergic Apple, beta-Adrene rgic Apple Start: 07-01-2023 take 25 mg by mouth twice daily Carvedilol Active 25 MG PO Twice daily July 01, 2023 12:00am Start: 01-24-2018 End: 07-01-2023 take 25 mg by mouth twice daily Carvedilol Discontinue d 25 MG PO Twice daily January 24, 2018 6:40pm July 01, 2023 4:07pm Start: 12-19-2016 End: 01-24-2018 take 6.25 mg by mouth twice daily Carvedilol Discontinued 6.25 MG PO Twice daily 60 30 December 26, 2016 12:47pm January 24, 2018 6:41pm Start: 12-16-2016 End: 12-19-2016 take 1 tablet by mouth twice daily Carvedilol Discontinued 1 TAB PO Twice daily December 16, 2016 12:00am December 19, 2016 11:10am take 1 tablet by jocelin th every twelve hours Coreg 25 MG tablet Take 25 mg by mouth every 12 (twelve) hours. 0 Active cholecalciferol 0.05 mg oral capsule (20 sources) Vitamin D Start: 12-16-2016 take 1 capsule by mouth twice daily Cholecalciferol (Vitamin D3) Active 1 CAP PO Twice daily December 16, 2016 12:00am Start: 12-16-2016 take 1 capsule by mo ut once daily Cholecalciferol (Vitamin D3) Active 1 CAP PO Daily December 16, 2016 12:00am cloNIDine hydrochloride 0.1 mg oral tablet (20 sources) Central alpha-2 Adrenergic Agonist Start: 07-01-2023 take 0.1 mg by mouth twice daily Clonidine Hcl Active 0.1 MG PO Twice daily July 01, 2023 12:00am Start: 10-21-2021 [facility] cloNIDine HCl 0.1 MG 1 tablet Orally twice daily for 90 day(s) Oct, Active colestipol hydrochloride 1000 mg oral tablet (20 sources) Bile Acid Sequestrant Start: 07-01-2023 take 2 g by mouth once daily Colestipol Active 2 GM PO Daily July 01, 2023 12:00am Start: 07-29-2021 End: 07-30-2022 take 2 g by mouth once daily Colestipol Discontinued 2 GM PO Daily July 29, 2021 12:00am July 30, 2022 3:01pm Start: 10-04-2019 take 2 tablets by mo [facility] every twenty-four hours Start: 10-04-2019 take 2 tablets by mo [facility] every twenty-four hours Start: 10-04-2019 take 2 tablets by mo [facility] every twenty-four hours Comp.Stocking,Thigh,Long,Lar ge (10 sources) Start: 05-27-2023 Comp.Stocking,Thigh,Long,Lar ge Active 0 .Route 2 May 27, 2023 [...] MG PO Bedtime August 16, 2021 12:00am diclofenac sodium 0.01 mg/mg topical gel (2 sources) Nonsteroidal Anti-inflammatory Drug Start: 03-23-2023 End: 05-21-2023 diclofenac sodium 1 % gel Indications: Diabetes mellitus due to underlying condition with diabetic polyneuropathy, with long-term current use of insulin ([facility]) APPLY 4 GRAMS TO AFFECTED AREA 4 [...] sources) Serotonin and Norepinephrine Reuptake Inhibitor Start: 07-01-2023 take 60 mg by mouth once daily Duloxetine Active 60 MG PO Daily July 01, 2023 12:00am Start: 06-24-[address] [facility] in the morning DULoxetine (Cymbalta) [address] capsule Take 60 mg by mouth in the morning. 0 06/24/2022 Active Start: 08-16-2021 End: 05-27-2023 take 60 mg by mouth once daily in the morning Duloxetine Discontinued 60 MG PO Every morning August 16, 2021 12:00am May 27, 2023 10:08am Start: 01-24-2018 End: 07-29-2021 take 3 capsules by mouth once daily Duloxetine (Cymbalta) 20 mg Capsule,Delayed Release(Dr/Ec) Discontinued 60 MG PO Daily January 24, 2018 12:00am July 29, 2021 3:58pm ferrous sulfate 325 mg oral tablet (20 sources) Start: 07-01-2023 take 325 mg by mouth once daily Ferrous Sulfate Active 325 MG PO Daily July 01, 2023 12:00am Start: 10-24-2022 take 1 tablet by jocelin th every twenty-four hours Start: 10-24-2022 take 1 tablet by mouth once da marty Ferrous Sulfate 325 (65 Fe) MG 1 tablet Orally daily for 90 days Oct, Active Start: 07-29-2021 End: 07-30-2022 take 1 tablet by mouth once daily Ferrous Sulfate (Iro n) 325 mg (65 mg iron) Tablet Discontinued 325 MG PO Daily October 23, 2021 1:32pm July 30, 2022 3:01pm Start: 12-16-2016 End: 01-24-2018 take 1 tablet by mouth once daily Ferrous Sulfate Disc ontinued 1 TAB PO Daily December 26, 2016 [...] 07-29-2021 Fluticasone Propionate (Flon ase) 50 mcg/actuation [place],Suspension Active 1 SPRAY INTRANASAL Daily July 29, 2021 12:00am Start: 12-16-2016 End: 04-17-2017 Fluticasone Propionate (Flon ase Allergy Relief) 50 mcg/actuation [place],Suspension Discontinued 1 SPRAY INTRANASAL Daily December 26, 2016 12:47pm April 17, 2017 11:04am take 1 spray(s) nasa l route once daily as needed FreeStyle Alfredo 14 Day [place] - (20 sources) Start: 02-12-2022 Start: 02-12-2022 FreeStyle Libr e 14 Day [place] - as directed every 14 days Feb, Active FreeStyle Alfredo 14 Day [place] r - (20 sources) Start: 02-12-2022 Start: 02-12-2022 FreeStyle Libr e 14 Day S[place] - as directed every 14 days for 28 days Feb, Active FreeStyle Alfredo 2 [place] - (20 sources) Start: 02-19-2022 FreeStyle Libr e 2 [place] - as directed Feb, Active FreeStyle Alfredo 2 [place] - as directed Active FreeStyle Alfredo 2 [...] oral capsule (20 sources) Anti-epileptic Agent Start: 07-01-2023 take 300 mg by mouth once daily Gabapentin Active 300 MG PO Daily July 01, 2023 12:00am Start: 09-16-2022 take 1 capsule by mo ut in the morning, then take 1 capsule by mouth in the evening, then take 1 capsule by mouth at bedtime gabapentin (Neurontin) 300 MG capsule Take 300 mg by mouth in the morning and 300 mg in the evening and 300 mg before bedtime. 0 09/16/2022 Active Start: 08-16-2021 End: 07-01-2023 take 600 mg by mouth twice daily Gabapentin Discontinu ed 600 MG PO Twice daily August 16, 2021 12:00am July 01, 2023 4:02pm Start: 08-16-2021 take 300 mg by mouth [...] Kwikpen U-100 Insulin) 100 unit/mL insulin pen (10 sources) Start: 12-05-2022 Insulin Lispro -Aabc (Lyumjev [...] morning loperamide hydrochloride 2 mg oral tablet (7 sources) Opioid Agonist Start: 07-01-2023 take 1 tablet by mouth four times daily as needed Loperamide (Imodium A-D) 2 mg tablet Active 1 TAB PO Four times daily July 01, 2023 12:00am FreeTextSi tablet as needed Orally Four times a day; Note: Source Status: Start; Qty: 40 Tablet; Provider: Marbella Smith Start: 03-19-2023 take 1 tablet by jocelin th every six hours Imodium A-D 2 MG [...] 17, 2017 11:02am metFORMIN hydrochloride 850 mg / pioglitazone 15 mg oral tablet (20 sources) Biguanide, Peroxisome Proliferator Receptor alpha Agonist, Peroxisome Proliferator Receptor gamma Agonist, Thiazolidinedione Start: 07-01-2023 take 1 tablet by mouth twice daily Pioglitazone-Metformin Active 1 TAB PO Twice daily July 01, 2023 12:00am Start: 12-16-2016 End: 12-26-2016 take 1 tablet by mouth once daily at breakfast Pioglitazone-Metformin Discontinued 1 TAB PO Daily with breakfast December 16, 2016 12:00am December 26, 2016 12:42pm take 1 tablet by jocelin th every twelve hours take 1 tablet by jocelin th every twelve hours methylPREDNISolone 4 mg oral tablet (2 sources) Corticosteroid Start: 08-07-2022 methylPREDNISolone 4 MG as directed Orally as directed for 6 days Jul, Active olopatadine (20 sources) Histamine-1 Receptor Inhibitor Start: 07-01-2023 take 1 drop(s) into the eye(s) twice daily Olopatadine Active DROPS OPHTHALMIC July 01, 2023 12:00am FreeTextSig: INSTILL 1 DROP INTO AFFECTED EYE TWICE A DAY FOR 30 DAYS; Note: Source Status: Start; Refills: 5; Qty: 15 Milliliter; Provider: Marbella Whitt ( ) Start: 09-17-2022 take 1 drop(s) into the eye(s) twice daily Olopatadine HCl 0.1 % 1 drop into affected eye Ophthalmic Twice a day for 30 days Sep, Active Start: 09-17-2022 Olopatadine HCl 0.1 % INSTILL 1 DROP INTO AFFECTED EYE TWICE A DAY FOR 30 DAYS for 30 days Active omeprazole 40 mg delayed release oral capsule (20 sources) Proton Pump Inhibitor Start: 07-30-2023 Omeprazo le Active 0 .ROUTE .COMPLEX 90 July 30, 2023 12:22pm TAKE 1 CAPSULE BY MOUTH EVERY DAY 30 MINUTES BEFORE MORNING MEAL FOR 90 DAYS Start: 01-24-2018 End: 07-30-2023 take 40 mg by mouth once daily in the morning Omeprazole Discontinued 40 MG PO Every morning January 24, 2018 12:00am July 30, 2023 12:22pm Start: 12-16-2016 End: 04-17-2017 take 1 capsule [...] DIRECTIONS 0 01/26/2023 Active (20 sources) Active vit-iron fum-folic ac ( Vitamin) (2 sources) Start: 07-01-2023 vit-i breanna fum-folic ac ( Vitamin) Active PO July 01, 2023 12:00am ProAir HFA 108 (90 Base) MCG /ACT [...] ON AN EMPTY STOMACH for 30 Active tiZANidine 4 mg oral tablet (20 sources) Central alpha-2 Adrenergic Agonist Start: 07-01-2023 take 0.5 tablet by mouth twice daily in the morning, then take 2 tablets by mouth at bedtime Tizanidine (Zanaflex) 4 mg tablet Active 4 MG PO Twice daily July 01, 2023 12:00am 1/2 tablet in the morning and 2 tablets at bedtime Orally Start: 07-29-2021 End: 09-26-2021 take 0.5 tablet [...] 2017 10:58am take 1 tablet by jocelin in the evening tiZANidine (Zanaflex) 4 MG tablet Take 4 mg by mouth in the evening. 0 Active tobramycin 3 mg/ml ophthalmic solution (15 [...] Active triamcinolone acetonide 0.001 mg/mg topical ointment (6 sources) Corticosteroid Start: 04-28-2023 Triamcinolone Acetonide Active 1 APPLIC TOPICAL Twice daily 30 April 28 2024 1:00am apply to lower legs as discussed [...] WITH OXYGEN TANK SINGH August, Active zonisamide 25 mg oral capsule (20 sources) Anti-epileptic Agent Start: 07-01-2023 take 50 mg by mouth twice daily Zonisamide Active 50 MG PO Twice daily July 01, 2023 12:00am Start: 07-29-2021 End: 07-01-2023 take 25 mg by mouth twice daily Zonisamide Discontinue d 25 MG PO Twice daily July 29, 2021 12:00am July 01, 2023 4:00pm Start: 07-29-2021 take 50 mg by mouth twice erlinda y Zonisamide Active 50 MG PO Twice daily July 29, 2021 12:00am take 2 capsules by m outh every twelve hours take 2 capsules by m outh every twelve hours Completed/Discontinued Medications Medication Drug Class(es) Dates Sig (Normalized) Sig (Original) allopurinol 300 mg oral tablet (19 sources) Xanthine Oxidase Inhibitor Start: 01-24-2018 End: 07-29-2021 take 300 mg by mouth once daily Allopurinol Discontinued 300 MG PO Daily January 24, 2018 12:00am July 29, 2021 11:13am Asenapine Maleate (Saphris ([place])) 5 mg Tablet, Sublingual (19 sources) Start: 01-24-2018 End: 08-16-2021 take 1 [...] Asenapine Maleate (Saphris) 5 mg Tablet, Sublingual (19 sources) Start: 08-16-2021 End: 09-26-2021 take 1 [...] 16, 2021 12:00am September 26, 2021 9:13am atorvastatin 40 mg oral tablet (20 sources) [...] 26, 2021 9:13am take [address] [facility] every twelve hours Celecoxib 200 MG 1 capsule with food Orally Twice a day Active clobetasol propionate 0.0005 mg/mg topical ointment (19 sources) Corticosteroid Start: 07-29-2021 End: 07-30-2022 Clobetasol Discontinued 1 APPLIC TOPICAL Daily 30 July 29, 2021 12:00am July 30, 2022 3:01pm dapagliflozin 5 mg oral tablet (20 sources) Sodium-Glucose Cotransporter 2 Inhibitor Start: 08-14-2022 End: 07-01-2023 take 1 tablet by mouth once daily in the morning Dapagliflozin Propanediol (Farxiga) 5 mg tablet Discontinued 5 MG PO Every morning December 05, 2022 12:00am July 01, 2023 4:57pm Start: 07-29-2021 End: 08-16-2021 take 1 tablet by mouth once daily Dapagliflozin Propanediol (Farxiga) 5 mg Tablet Discontinued 5 MG PO Daily July 29, 2021 12:00am August 16, 2021 10:22am diazePAM 10 mg oral tablet (20 sources) [...] ml enoxaparin sodium 100 mg/ml prefilled syringe (19 sources) Low Molecular Weight Heparin Start: 12-19-2016 End: 12-26-2016 Enoxaparin (Lovenox) 30 mg/0.3 mL Syringe Discontinued 30 MG SUBCUT Q12H 60 December 19, 2016 12:00am December 26, 2016 12:20pm estrogens, conjugated (group home) 0.3 mg oral tablet (19 sources) Estrogen Start: 01-24-2018 End: 07-29-2021 take [...] insulin aspart, human 100 unt/ml pen injector (19 sources) Insulin Analog Start: 12-19-2016 End: 04-17-2017 Insulin Aspart U-100 (Novolog Flexpen U-100 Insulin) 100 unit/mL Insulin Pen Discontinued 0 UNITS SUBCUT 3X/Day with meals and bedtime December 19, 2016 12:00am April 17, 2017 11:02am ipratropium bromide 0.021 mg/actuat metered dose nasal spray (20 sources) Anticholinergic Start: 12-16-2016 End: 04-17-2017 Ipratropium [place] Discontinued 2 SPRAY INTRANASAL Twice daily December [...] 17, 2017 1:00am January 24, 2018 6:41pm mirtazapine 30 mg oral tablet (20 sources) Start: 07-29-2021 End: 09-26-2021 take 1 tablet by mouth once daily Mirtazapine (Remeron) 30 mg Tablet Discontinued 30 MG PO Daily August 16, 2021 12:00September 26, 2021 9:17am Start: 12-16-2016 End: 04-17-2017 [...] 26, 2016 12:47pm April 17, 2017 10:59am 24 hr venlafaxine 150 mg extended release oral capsule (20 sources) Serotonin and Norepinephrine Reuptake Inhibitor Start: 12-16-2016 End: 04-17-2017 take 2 capsules by mouth once daily Venlafaxine Discontinued 2 CAP PO Daily December 26, 2016 12:47pm [...] 08-16-2021 Episodic Acute and unspecified renal failure (19 sources) Injury of kidney; Translations: [Acute kidney failure, unspecified] 08-16-2021 Episodic Blindness and vision defects (19 sources) Visual hallucinations; Translations: [Visual hallucinations] 01-23-2017 [...] Resolved: 2 Chronic Deficiency and other anemia (19 sources) Iron deficiency anemia; Translations: [Iron deficiency [...] (20 sources) Fatigue; Translations: [Chronic fatigue, unspecified] 07-01-2023 Chronic Malaise and fatigue (20 sources) Asthenia; Translations: [Other malaise] 08-16-2021 Episodic Mood disorders (20 sources) Major depression with psychotic features; Translations: [Major depressive disorder, single episode, severe with psychotic features] 08-16-2021 Chronic Neoplasms of unspecified nature or uncertain behavior (20 sources) Neuropathy; Translations: [Monoclonal gammopathy] Onset: 3 08-16-2021 Chronic Other aftercare (20 sources) Long-term current use of insulin; Translations: [half-way (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] 07-01-2023 Episodic Other aftercare (4 sources) Other fpc (current) drug therapy Onset: 2 Resolved: 2 Episodic Other connective tissue disease (19 sources) Rhabdomyolysis; Translations: [Rhabdomyolysis] 08-16-2021 Episodic Other connective tissue disease (20 sources) Recurrent falls ; Translations: [Repeated falls] 08-16-2021 Episodic Other connective tissue disease (1 source) Repeated falls Episodic Other diseases of kidney and ureters (2 sources) Kidney disease; Translations: [Disorder of kidney and ureter, unspecified] 07-01-2023 Episodic Other diseases of veins and lymphatics (20 sources) Acquired lymphedema of lower extremity; Translations: [Lymphedema, not elsewhere classified] Chronic Other diseases of veins and lymphatics (7 sources) Lymphedema, not elsewhere classified Onset: 2 Resolved: 2 Chronic Other diseases of veins and lymphatics (20 sources) Ulcer of lower extremity; Translations: [Venous insufficiency (chronic) (peripheral)] Episodic Other diseases of veins and lymphatics (16 sources) Venous insufficiency (chronic) (peripheral); Translations: [Varicose [...] Episodic Other diseases of veins and lymphatics (4 sources) Disorder of vein of lower extremity; Translations: [Venous insufficiency (chronic) (peripheral)] 08-16-2021 Episodic Other diseases of veins and lymphatics (4 sources) Vascular insufficiency; Translations: [Venous insufficiency (chronic) (peripheral)] 05-12-2023 Episodic Other gastrointestinal disorders (6 sources) Irritable bowel syndrome; Translations: [Irritable bowel syndrome without diarrhea] 04-28-2023 Chronic Other gastrointestinal disorders (6 sources) Irritable bowel syndrome without diarrhea; Translations: [Irritable bowel syndrome] 04-28-2023 Chronic Other gastrointestinal disorders (19 sources) Diarrhea; Translations: [Diarrhea, unspecified] 08-16-2021 Episodic Other gastrointestinal disorders (1 source) Diarrhea, unspecified Episodic Other hematologic conditions (10 sources) Raised cardiac enzyme or marker; Translations: [Other specified abnormalities of plasma proteins] 08-16-2021 Episodic Other nervous system disorders (20 sources) Chronic pain; Translations: [Other chronic pain] 07-01-2023 Chronic Other nervous system disorders (6 sources) Other chronic pain; Translations: [OTHER CHRONIC PAIN] Onset: 2 Resolved: 2 Chronic Other nervous system disorders (19 sources) Metabolic encephalopathy; Translations: [Metabolic encephalopathy] 08-16-2021 Chronic Other nervous system disorders (1 source) Polyneuropathy, unspecified Chronic Other nervous system disorders (20 sources) Abnormal gait; Translations: [Unsteadiness on feet] 07-01-2023 Episodic Other nervous system disorders (2 sources) Unsteadiness on feet Episodic Other nutritional; endocrine; and metabolic disorders (20 sources) Morbid obesity; Translations: [Morbid (severe) obesity due to excess calories] 08-16-2021 Chronic Other nutritional; endocrine; and metabolic disorders (19 sources) Hypomagnesemia; Translations: [Hypomagnesemia] 08-16-2021 Chronic Other nutritional; endocrine; and metabolic disorders (17 sources) Morbid (severe) obesity due to excess calories; Translations: [Morbid obesity] 10-23-2021 Chronic Other nutritional; endocrine; and metabolic disorders (2 sources) Obesity; Translations: [Obesity, unspecified] 07-01-2023 Chronic Other screening for suspected conditions (not mental disorders or infectious disease) (11 sources) Encounter for screening mammogram for malignant neoplasm of breast; Translations: [Encounter for other screening for malignant neoplasm of breast] Onset: 1 Resolved: 1 Episodic Other skin disorders (19 sources) Hemosiderin pigmentation of skin; Translations: [Other specified disorders of pigmentation] 08-16-2021 Episodic Peripheral and visceral atherosclerosis (11 sources) Peripheral vascular disease; Translations: [Peripheral vascular disease, unspecified] Onset: 3 Chronic Residual codes; unclassified (20 sources) Obstructive sleep apnea syndrome; Translations: [Obstructive sleep apnea (adult) (pediatric)] Onset: 1 08-16-2021 Chronic Residual codes; unclassified (7 sources) Obstructive sleep apnea (adult) (pediatric); Translations: [Obstructive sleep apnea (adult)(pediatric)] Onset: 2 Resolved: 2 Chronic Residual codes; unclassified (19 sources) Peripheral edema; Translations: [Edema, unspecified] 08-16-2021 Episodic Residual codes; unclassified (6 sources) Localized edema; Translations: [Edema] 04-28-2023 Episodic [...] [Hypothyroidism, unspecified] Onset: 1 Resolved: 1 Chronic Thyroid disorders (2 sources) Disorder of thyroid gland; Translations: [Disorder of thyroid, unspecified] 07-01-2023 Episodic Unclassified (4 sources) LOW BACK PAIN, UNSPECIFIED; Translations: [LOW BACK PAIN, UNSPECIFIED] Onset: 3 Unclassified (12 sources) Inflammatory disorder; Translations: [Inflammation] 04-28-2023 Unclassified [...] Translations: [Pain in left hip] Onset: 3 Urinary tract infections (20 sources) Urinary tract infectious disease; Translations: [Urinary [...] Resolved: 12-23-2021 Episodic Other aftercare (1 source) 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: 04-02-2021 [...] Test Name Value Interpretation Reference Range Facility Albumin [Mass/volume] in Ser um or Plasma by Bromocresol green (BCG) dye binding methoOrdered By: Jeannie Aguilar on 07-31-2023 Albumin BCG dye [Mass/Vol] 4.0 g/dL 3.5-5.7 [facility] Calcium [Mass/volume] in Ser um or PlasmaOrdered By: Jeannie Aguilar on 07-31-2023 Calcium [Mass/Vol] 9.4 mg/dL 8.6-10.3 [facility] Carbon dioxide, total [Moles /volume] in Serum or PlasmaOrdered By: Jeannie Aguilar on 07-31-2023 CO2 [Moles/Vol] 31.7 mmol/L 21.0-31.0 [facility] Chloride [Moles/volume] in S logan or PlasmaOrdered By: Jeannie Aguilar on 07-31-2023 Chloride [Moles/Vol] 100 mmol/L 98-107 [facility] Cholesterol [Mass/volume] in Serum or PlasmaOrdered By: Jeannie Aguilar on 07-31-2023 Cholesterol [Mass/Vol] 134 mg/dL 140-200 [facility] Comment on above: Chol less than 200 m g/dl low riskChol 201-239 mg/dl borderline riskChol 240 mg/dl and greater high risk Cholesterol in LDL Calc [Mas s/Vol]Ordered By: Jeannie Aguilar on 07-31-2023 Cholesterol in LDL [Mass/Vol] 71 mg/dL 0-100 [facility] Comment on above: LDL ATP III CLASSIFI CATIONLDL less than 100 mg/dL OptimalLDL 100-129 mg/dL Near or above optimalLDL 130-159 mg/dL Borderline highLDL 160-189 mg/dL HighLDL greater than 189 mg/dL Very high Cholesterol in VLDL Calc [Ma ss/Vol]Ordered By: Jeannie Aguilar on 07-31-2023 Cholesterol in VLDL [Mass/Vol] 17 mg/dL [facility] Creatinine [Mass/volume] in Serum or PlasmaOrdered By: Jeannie Aguilar on 07-31-2023 Creatinine [Mass/Vol] 1.52 mg/dL 0.60-1.20 [facility] Creatinine [Mass/volume] in UrineOrdered By: Jeannie Aguilar on 07-31-2023 Creatinine (U) [Mass/Vol] 33.0 mg/dL [facility] Comment on above: No reference range e stablished Glucose [Mass/volume] in Ser um or PlasmaOrdered By: Jeannie Aguilar on 07-31-2023 Glucose [Mass/Vol] 154 mg/dL 70-100 [facility] Comment on above: ADA recommended refe rence rangeRandom Glucose Reference Range is dependent on time and content of last meal. Glucose of more than 200 mg/dL in a nonstressed, ambulatory subject supports the diagnosis of Diabetes Mellitus. Lipid Panelon 07-31-2023 Cholesterol [Mass/Vol] 134 mg/dL Low 140-200 [facility] Comment on above: Result Comment: Chol less than 200 mg/dl low risk Chol 201-239 mg/dl borderline risk Chol 240 mg/dl and greater high risk Performed By: #### U RMACRERAT, RENAL, LIPID, [id number] #### [facility] [address] [place] [address] [facility] Cholesterol in HDL [Mass/Vol] 45 mg/dL Normal 23-92 [facility] Comment on above: Result Comment: HDL CHOL ATP-III CLASSIFICATION Cardiovascular Risk HDL > or equal to 60 mg/dL LOW HDL < 40 mg/dL HIGH Performed By: #### U RMACRERAT, RENAL, LIPID, [id number] #### [facility] [address] [place] [address] [place] Cholesterol.total/Shahla sterol in HDL [Mass ratio] 3.0 {ratio} Normal <5.0 [facility] Comment on above: Performed By: #### U RMACRERAT, RENAL, LIPID, [id number] #### [facility] [address] [place] [address] [place] LDL Cholesterol,Calculated 71 mg/dL Normal 0-100 [facility] Comment on above: Result Comment: LDL ATP III CLASSIFICATION LDL less than 100 mg/dL Optimal LDL 100-129 mg/dL Near or above optimal LDL 130-159 mg/dL Borderline high LDL 160-189 mg/dL High LDL greater than 189 mg/dL Very high Performed By: #### U RMACRERAT, RENAL, LIPID, [id number] #### [facility] [address] [place] [address] [place] Triglyceride w/Reflex 89 mg/dL Normal 0-149 [facility] Comment on above: Result Comment: TRIG ATP III CLASSIFICATION TRIG less than 150 mg/dL Normal TRIG 150-199 mg/dL Borderline high TRIG 200-500 mg/dL High TRIG greater than 500 mg/dL Very high Standard traceable to the Center for Disease Conrtrol and Prevention (CDC) test method. Performed By: #### U RMACRERAT, RENAL, LIPID, [id number] #### [address] VLDL CHOLESTEROL 17 mg/dL Normal [facility] Comment on above: Performed By: #### U RMACRERAT, RENAL, LIPID, [id number] #### [address] MicroAlb Creat Ratio,Uon Albumin DL <= 20 mg/L (U) [Mass/Vol] mg/dL Normal 0.0-1.8 [facility] Comment on above: Performed By: #### U RMACRERAT, RENAL, LIPID, [id number] #### [address] Creatinine, Urine (Random) 33.0 mg/dL Normal [facility] Comment on above: Result Comment: No r eference range established Performed By: #### U RMACRERAT, RENAL, LIPID, [id number] #### [address] Microalbumin/Creatinine Ratio Not performed Normal 0.0-30.0 [facility] Comment on above: Result Comment: PERF ORMED BY: [place] [address] PATHOLOGIST [employer]ST CONTROL REPRESENTATIVE AQUILINO JACK M.D. Performed By: #### U RMACRERAT, RENAL, LIPID, [id number] #### [address] Microalbumin [Mass/volume] i n UrineOrdered By: Jeannie Aguilar on 07-31-2023 Albumin DL <= 20 mg/L (U) [Mass/Vol] mg/dL 0.0-1.8 [facility] No Panel InformationOrdered By: Jeannie Aguilar on 07-31-2023 Estimated GFR (CKD-EPI) 38.064 mL/Min [facility] Creatinine Clearance (Chem N/A [facility] Phosphate [Mass/volume] in S logan or PlasmaOrdered By: Jeannie Aguilar on 07-31-2023 Phosphate [Mass/Vol] 4.5 mg/dL 2.5-4.5 [facility] Potassium [Moles/volume] in Serum or PlasmaOrdered By: Jeannie Aguilar on 07-31-2023 Potassium [Moles/Vol] 4.1 mmol/L 3.5-5.1 [facility] Renal Function Panelon 07-30 Albumin [Mass/Vol] 4.0 g/dL Normal 3.5-5.7 [facility] Comment on above: Performed By: #### U RMACRERAT, RENAL, LIPID, [id number] #### [facility] [address] Anion gap [Moles/Vol] 13.4 mmol/L Normal 6.0-15.0 [facility] Comment on above: Performed By: #### U RMACRERAT, RENAL, LIPID, [id number] #### [facility] [address] Calcium [Mass/Vol] 9.4 mg/dL Normal 8.6-10.3 [facility] Comment on above: Performed By: #### U RMACRERAT, RENAL, LIPID, [id number] #### [facility] [address] [place] [address] [place] Chloride [Moles/Vol] 100 mmol/L Normal 98-107 [facility] Comment on above: Performed By: #### U RMACRERAT, RENAL, LIPID, [id number] #### [facility] [address] [place] [address] [place] CO2 [Moles/Vol] 31.7 mmol/L High 21.0-31.0 [facility] Comment on above: Performed By: #### U RMACRERAT, RENAL, LIPID, [id number] #### [facility] [address] Creatinine [Mass/Vol] 1.52 mg/dL High 0.60-1.20 [facility] Comment on above: Performed By: #### U RMACRERAT, RENAL, LIPID, [id number] #### [facility] [address] [place] [address] [place] GFR/1.73 sq M.predicted MDRD (S/P/Bld) [Vol rate/Area] 38.064 mL/min/{1.73_m2} Normal [facility] Comment on above: Performed By: #### U RMACRERAT, RENAL, LIPID, [id number] #### [facility] [address] [place] [address] [place] Glucose [Mass/Vol] 154 mg/dL High 70-100 [facility] Comment on above: Result Comment: [facility] Glucose Reference Range is dependent on time and content of last meal. Glucose of more than 200 mg/dL in a nonstressed, ambulatory subject supports the diagnosis of Diabetes Mellitus. ADA recommended reference range Performed By: #### U RMACRERAT, RENAL, LIPID, [id number] #### [place] [address] [place] Phosphate [Mass/Vol] 4.5 mg/dL Normal 2.5-4.5 [facility] Comment on above: Performed By: #### U RMACRERAT, RENAL, LIPID, [id number] #### [place] [address] [place] Potassium [Moles/Vol] 4.1 mmol/L Normal 3.5-5.1 [facility] Comment on above: Performed By: #### U RMACRERAT, RENAL, LIPID, [id number] #### [place] [address] [place] Sodium [Moles/Vol] 141 mmol/L Normal 136-145 [facility] Comment on above: Performed By: #### U RMACRERAT, RENAL, LIPID, [id number] #### [place] [address] [place] Urea nitrogen [Mass/Vol] 26 mg/dL High 11-04 [facility] Comment on above: Performed By: #### U RMACRERAT, RENAL, LIPID, [id number] #### [facility] [address] [place] [id number] [facility] Serum or plasma anion gap de terminationOrdered By: Jeannie Aguilar on 07-31-2023 Anion gap [Moles/Vol] 13.4 mmol/L 6.0-15.0 [facility] Serum or plasma high density lipoprotein (HDL) cholesterol measurementOrdered By: Jeannie Aguilar on 07-31-2023 Cholesterol in HDL [Mass/Vol] 45 mg/dL 23- [facility] Comment on above: HDL CHOL ATP-III CLA SSIFICATION Cardiovascular RiskHDL > or equal to 60 mg/dL LOWHDL < 40 mg/dL HIGH Serum or plasma total choles terol/high density lipoprotein (HDL) cholesterol mass ratOrdered By: Jeannie Aguilar on 07-31-2023 Cholesterol.total/Shahla sterol in HDL [Mass ratio] 3.0 {ratio} <5.0 [facility] Sodium [Moles/volume] in Ser um or PlasmaOrdered By: Jeannie Aguilar on 07-31-2023 Sodium [Moles/Vol] 141 mmol/L 136-145 [facility] Triglyceride [Mass/volume] i n Serum or PlasmaOrdered By: Jeannie Aguilar on 07-31-2023 Triglyceride [Mass/Vol] 89 mg/dL 0-149 [facility] Comment on above: TRIG ATP III CLASSIF ICATIONTRIG less than 150 mg/dL NormalTRIG 150-199 mg/dL Borderline highTRIG 200-500 mg/dL High TRIG greater than 500 mg/dL Very highStandard traceable to the Center for Disease Conrtrol and Prevention (CDC) test method. Urea nitrogen [Mass/volume] in Serum or PlasmaOrdered By: Jeannie Aguilar on 07-31-2023 Urea nitrogen [Mass/Vol] 26 mg/dL 11-04 [facility] Urine microalbumin/creatinin e mass ratioOrdered By: Jeannie Aguilar on 04-19-2024 Albumin/Creatinine DL <= 20 mg/L (U) [Mass ratio] TNP [facility] Comment on above: Test not performed Vitamin D 25 Hydroxy Totalon 07-31-2023 Vitamin D 25 Hydroxy Total 57.3 ng/mL Normal 30-100 [facility] Comment on above: Result Comment: KOBI MIN D STATUS 25(OH)VITAMIN D RANGE (ng/mL) Deficient <20 Insufficient 20 to <30 Sufficient 30 to 100 Reference: Vanessa Negron Bischoff-Ferrari HA et al. Evaluation,treatment, and prevention of vitamin D deficiency; an Endocrine Society clinical practice guideline. JCEM. 2010; 96(7):1911-30. PERFORMED BY: [place] [address] PATHOLOGIST [employer]ST CONTROL REPRESENTATIVE AQUILINO JACK M.D. Performed By: #### U RMACRERAT, RENAL, LIPID, [id number] #### [place] [id number] [facility] Vitamin D+Metabolites [Mass/ volume] in Serum or PlasmaOrdered By: Jeannie Aguilar on 07-31-2023 Vitamin D+Metabolites [Mass/Vol] 57.3 ng/mL 30-100 [facility] Comment on above: VITAMIN D STATUS 25( [place])VITAMIN D RANGE (ng/mL) Deficient <20 Insufficient 20 to <30Sufficient 30 to 100Reference: Vanessa Negron, Caesar ASIF et al. Evaluation,treatment, and prevention of vitamin D deficiency; an Endocrine Society clinical practice guideline. JCEM. 2010; 96(7):1911-30. US venous duplex LE BIon US venous duplex LE BI [facility] [address] [place] [address] [place] [id number] Ultrasound Report Signed Patient: Kelsea Turcios MR#: [id number] 58 : 1960 Acct:[id number] Age/Sex: 62 / F ADM Date: 05/08/23 Loc: Room: Type: [facility] Attending Dr: Erica Diehl APRN Ordering [...] Cresencio Chappell MD05/09/2023 3:57 PM Dictation Location: [place] [address] Tech: Elsie De La Torre Transcribed By: RACHEL 05/09/231556 Dictated By: Cresencio Chappell MD 05/09/231556 Signed By: 05/09/23 155 Normal [facility] arterial pvr rest Melyssa US arterial pvr rest [facility] [place] [address] Ultrasound Report Signed Patient: Kelsea Turcios MR#: [id number] 58 : 1960 Acct:[id number] Age/Sex: 62 / F ADM Date: 02/19/23 Loc: Room: Type: [facility] Attending Dr: Peri Tyson DO Ordering [...] Domenico Whitmore M.D.02/20/2023 10:32 AM Dictation Location: [place] [address] Tech: Liyah Stuartdana Transcribed By: RACHEL 02/20/23 1032 Dictated By: Domenico Whitmore MD 02/20/23 1031 Signed By: 02/20/23 1032 Normal [facility] Activated partial thrombopla stin time (aPTT) in platelet poor plasma by coagulation aOrdered By: Roxane Bills on 02-12-2023 aPTT Coag (PPP) [Time] 23.4 s 25.1-36.5 [facility] Comment on above: A hematocrit value g reater than 55% may lead to inaccurate results in coagulation testing. Patients having hematocrit values >55% require a special collection tube for coagulation studies. Please contact the laboratory at [phone] for redraw instructions. Basophils Auto (Bld) [#/Vol] Ordered By: Roxane Bills on 02-12-2023 Basophils (Bld) [#/Vol] 0.1 10*3/uL 0.0-0.2 [facility] Basophils/100 WBC Auto (Bld) Ordered By: Roxane Bills on 02-12-2023 Basophils/100 WBC (Bld) 1.3 % . 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 CT GUIDED [...] local anesthesia. Utilizing CT guidance, an 11-gauge [employer] biopsy needle was advanced into the right [...] Mccurdy Jr., D.O.02/12/2023 11:44 AM Dictation Location: [place] [address] Transcribed By: [facility] 02/12/23 1144 Dictated By: Manish Mccurdy Jr, DO 02/12/23 1137 Signed By: 02/12/23 1144 Normal [facility] Coagulation Profileon 2022 aPTT Coag (Bld) [Time] 23.4 s Low 25.1-36.5 [facility] Comment on above: Order Comment: Stat for bx Result Comment: A he matocrit value greater than 55% may lead to inaccurate results in coagulation testing. Patients having hematocrit values >55% require a special collection tube for coagulation studies. Please contact the laboratory at [phone] for redraw instructions. PERFORMED BY: [place] [address] [place] [address] PATHOLOGIST [employer]ER[employer]ST CONTROL REPRESENTATIVE AQUILINO JACK M.D. Performed By: #### C BC, PP #### [address] INR Coag (PPP) [Relative time] 1.0 {INR} Normal [facility] Comment on above: Order Comment: Stat for [...] valves: 3 - 4.5 Performed By: #### C BC, PP #### [address] PT Coag (PPP) [Time] 12.4 s Normal 9.0-12.9 [facility] Comment on above: Order Comment: Stat for bx Result Comment: A matocrit value greater than 55% may lead to inaccurate results in coagulation testing. Patients having hematocrit values >55% require a special collection tube for coagulation studies. Please contact the laboratory at [phone] for redraw instructions. Performed By: #### C BC, PP #### [address] Complete Blood Count Auto Di ffon 02-12-2023 Basophils (Bld) [#/Vol] 0.1 10*3/uL Normal 0.0-0.2 [facility] Comment on above: Order Comment: Stat for bx Result Comment: PERF ORMED BY: [place] [address] PATHOLOGIST [employer]ST CONTROL REPRESENTATIVE AQUILINO JACK M.D. Performed By: #### C BC, PP #### [address] Basophils/100 WBC (Bld) 1.3 % Normal . [facility] Comment on above: Order Comment: Stat for bx Performed By: #### C BC, PP #### [address] [place] [address] [place] Eosinophils (Bld) [#/Vol] 0.9 10*3/uL High 0.0-0.45 [facility] Comment on above: Order Comment: Stat for bx Performed By: #### C BC, PP #### [address] Eosinophils/100 WBC (Bld) 7.7 % Normal . [facility] Comment on above: Order Comment: Stat for bx Performed By: #### C BC, PP #### [address] Erythrocyte distribution width (RBC) [Ratio] 14.1 % Normal 11.9-15.3 [facility] Comment on above: Order Comment: Stat for bx Performed By: #### C BC, PP #### [address] Hematocrit (Bld) [Volume fraction] 38.9 % Normal 34.0-46.4 [facility] Comment on above: Order Comment: Stat for bx Performed By: #### C BC, PP #### [address] Hemoglobin (Bld) [Mass/Vol] 12.8 g/dL Normal 11.8-15.4 [facility] Comment on above: Order Comment: Stat for bx Performed By: #### C BC, PP #### [place] [address] [place] Lymphocytes (Bld) [#/Vol] 2.8 10*3/uL Normal 1.00-4.8 [facility] Comment on above: Order Comment: Stat for bx Performed By: #### C BC, PP #### [place] [address] [place] Lymphocytes/100 WBC (Bld) 24.2 % Normal . [facility] Comment on above: Order Comment: Stat for bx Performed By: #### C BC, PP #### [address] MCH (RBC) [Entitic mass] 30.0 pg Normal 24.7-34.3 [facility] Comment on above: Order Comment: Stat for bx Performed By: #### C BC, PP #### [address] MCV (RBC) [Entitic vol] 91.2 fL Normal 80-100 [facility] Comment on above: Order Comment: Stat for bx Performed By: #### C BC, PP #### [address] Mean Corpuscular HGB Conc 32.9 g/dL Normal 32.0-35.0 [facility] Comment on above: Order Comment: Stat for bx Performed By: #### C BC, PP #### [address] Monocytes (Bld) [#/Vol] 1.0 10*3/uL High 0.0-0.8 [facility] Comment on above: Order Comment: Stat for bx Performed By: #### C BC, PP #### [address] Monocytes/100 WBC (Bld) 9.0 % Normal . [facility] Comment on above: Order Comment: Stat for bx Performed By: #### C BC, PP #### [address] Neutrophils (Bld) [#/Vol] 6.8 10*3/uL Normal 1.8-7.7 [facility] Comment on above: Order Comment: Stat for bx Performed By: #### C BC, PP #### [address] Neutrophils/100 WBC (Bld) 57.8 % Normal . [facility] Comment on above: Order Comment: Stat for bx Performed By: #### C BC, PP #### [address] NRBC% 0.1 /100{WBC} Normal 0-0.5 [facility] Comment on above: Order Comment: Stat for bx Performed By: #### C BC, PP #### [facility] [address] Platelet mean volume (Bld) [Entitic vol] 7.0 fL Normal 6.3-10.7 [facility] Comment on above: Order Comment: Stat for bx Performed By: #### C BC, PP #### [facility] [address] Platelets (Bld) [#/Vol] 334 10*3/uL Normal 150-450 [facility] Comment on above: Order Comment: Stat for bx Performed By: #### C BC, PP #### [facility] [address] RBC (Bld) [#/Vol] 4.27 10*6/uL Normal 3.60-5.00 [facility] Comment on above: Order Comment: Stat for bx Performed By: #### C BC, PP #### [facility] [address] WBC (Bld) [#/Vol] 11.7 10*3/uL High 3.8-11.6 [facility] Comment on above: Order Comment: Stat for bx Performed By: #### C BC, PP #### [facility] [address] Eosinophils Auto (Bld) [#/Vo l]Ordered By: Roxane Bills on 02-12-2023 Eosinophils (Bld) [#/Vol] 0.9 10*3/uL 0.0-0.45 [facility] Eosinophils/100 WBC Auto (Bl d)Ordered By: Roxane Bills on 02-12-2023 Eosinophils/100 WBC (Bld) 7.7 % . [facility] Erythrocyte distribution wid th Auto (RBC) [Ratio]Ordered By: Roxane Bills on 02-12-2023 Erythrocyte distribution width (RBC) [Ratio] 14.1 % 11.9-15.3 [facility] Hematocrit Auto (Bld) [Volum e fraction]Ordered By: Roxane Bills on 02-12-2023 Hematocrit (Bld) [Volume fraction] 38.9 % 34.0-46.4 [facility] Hemoglobin [Mass/volume] in BloodOrdered By: Roxane Bills on 02-12-2023 Hemoglobin (Bld) [Mass/Vol] 12.8 g/dL 11.8-15.4 [facility] INR in Platelet poor plasma by Coagulation assayOrdered By: Roxane Bills on 02-12-2023 INR Coag (PPP) [Relative time] 1.0 {INR} [facility] Comment on above: INR Therapeutic Rang [...] [id number] Received: 02/12/23 Status: JOHNNY [place] Num: [id number] Spec Type: Bone Marro Subm Dr: Manish Mccurdy Jr, DO Tissues: A Bone Marrow Aspirate (Clot) (RT ILIAC) B Bone Marrow Biopsy/Core (RT ILIAC) Procedures: Reticulum I, Peripheral Smr, Iron/2, HE/4, Gross/Micro L4/2, Bm Smear/2, CD138/2, CD20/2, CD3/2, CD31, CD34, CD56/2, CD68, E CADHERIN, Decalcification, IHC First AB, IHC Add AB/7, PAS - Hemat/2, Bone Marrow TP, GIEMSA STN/ Age/ Patient Sex Location Account Attending Physician Kelsea Turcios 62/F CT [id number] Roxane Bills MD SPEC NUM: [id number] RECD: 02/12/23 STATUS: [place] NUM: [id number] KYESHA: 02/12/[address] [facility] [address]: Manish Mccurdy Jr, DO ENTERED: 02/12/23 [facility] DR: Roxane Bills MD SPEC [...] Signed (signature on file) Jolanta Lemon MD 02/25/231838 Specimen: [id number] Received: 02/12/23 Status: [place]OHNN[place] Num: [id number] Spec Type: Bone Marro Subm Dr: Manish Mccurdy Jr, DO Tissues: A Bone Marrow Aspirate (Clot) (RT ILIAC) B Bone Marrow Biopsy/Core (RT ILIAC) Procedures: Reticulum I, Peripheral Smr, Iron/2, HE/4, Gross/Micro L4/2, Bm Smear/2, CD138/2, CD20/2, CD3/2, CD31, CD34, CD56/2, CD68, E CADHERIN, Decalcification, IHC First AB, IHC Add AB/7, PAS - Hemat/2, Bone Marrow TP, GIEMSA STN Patient: Kelsea Turcios [id number] (Continued) Specimen: [id number] Received: 02/12/23 (Continued) Signed (signature on file) Jolanta Lemon MD 02/22/231906 Specimen: [id number] Received: 02/12/23 Status: JOHNN[place] Num: [id number] Spec Type: Bone Marro Subm Dr: Manish Mccurdy Jr, DO Tissues: A Bone Marrow Aspirate (Clot) (RT ILIAC) B Bone Marrow Biopsy/Core (RT ILIAC) Procedures: Reticulum I, Peripheral Smr, Iron/2, HE/4, Gross/Micro L4/2, Bm Smear/2, CD138/2, CD20/2, CD3/2, CD31, CD34, CD56/2, CD68, E CADHERIN, Decalcification, IHC First AB, IHC Add AB/7, PAS - Hemat/2, Bone Marrow TP, GIEMSA STN/7 Patient: Kelsea Turcios [id number] (Continued) Specimen: [id number] Received: 02/12/238 (Continued) Pathological Diagnosis AMB, right iliac crest [...] visual estimation, (more content not included)... Normal [facility] Leukocytes [#/volume] correc shan for nucleated erythrocytes in Blood by Automated counOrdered By: Roxane Bills on 02-12-2023 WBC corrected for nucl RBC Auto (Bld) [#/Vol] 11.7 10*3/uL 3.8-11.6 [facility] Lymphocytes Auto (Bld) [#/Vo l]Ordered By: Roxane Bills on 02-12-2023 Lymphocytes (Bld) [#/Vol] 2.8 10*3/uL 1.00-4.8 [facility] Lymphocytes/100 WBC Auto (Bl d)Ordered By: Roxane Bills on 02-12-2023 Lymphocytes/100 WBC (Bld) 24.2 % . [facility] MCH Auto (RBC) [Entitic mass ]Ordered By: Roxane Bills on 02-12-2023 MCH (RBC) [Entitic mass] 30.0 pg 24.7-34.3 [facility] MCHC Auto (RBC) [Mass/Vol]Or dered By: Roxane Bills on 02-12-2023 MCHC (RBC) [Mass/Vol] 32.9 g/dL 32.0-35.0 [facility] MCV Auto (RBC) [Entitic vol] Ordered By: Roxane Bills on 02-12-2023 MCV (RBC) [Entitic vol] 91.2 fL 80-100 [facility] Monocytes Auto (Bld) [#/Vol] Ordered By: Roxane Bills on 02-12-2023 Monocytes (Bld) [#/Vol] 1.0 10*3/uL 0.0-0.8 [facility] Monocytes/100 WBC Auto (Bld) Ordered By: Roxane Bills on 02-12-2023 Monocytes/100 WBC (Bld) 9.0 % . [facility] Neutrophils Auto (Bld) [#/Vo l]Ordered By: Roxane Bills on 02-12-2023 Neutrophils (Bld) [#/Vol] 6.8 10*3/uL 1.8-7.7 [facility] Neutrophils/100 WBC Auto (Bl d)Ordered By: Roxane Bills on 02-12-2023 Neutrophils/100 WBC (Bld) 57.8 % . [facility] Nucleated erythrocytes [Pres ence] in Blood by Automated countOrdered By: Roxane Bills on 02-12-2023 Nucleated RBC Auto Ql (Bld) 0.1 /100{WBC} 0-0.5 [facility] Platelet mean volume Auto (B ld) [Entitic vol]Ordered By: Roxane Bills on 02-12-2023 Platelet mean volume (Bld) [Entitic vol] 7.0 fL 6.3-10.7 [facility] Platelets Auto (Bld) [#/Vol] Ordered By: Roxane Bills on 02-12-2023 Platelets (Bld) [#/Vol] 334 10*3/uL 150-450 [facility] Prothrombin time (PT)Ordered By: Roxane Bills on 02-12-2023 PT Coag (PPP) [Time] 12.4 s 9.0-12.9 [facility] Comment on above: A hematocrit value g reater than 55% may lead to inaccurate results in coagulation testing. Patients having hematocrit values >55% require a special collection tube for coagulation studies. Please contact the laboratory at [phone] for redraw instructions. RBC Auto (Bld) [#/Vol]Ordere d By: Roxane Bills on 02-12-2023 RBC (Bld) [#/Vol] 4.27 10*6/uL 3.60-5.00 [facility] WBC Auto (Bld) [#/Vol]Ordere d By: Roxane Bills on 02-12-2023 WBC (Bld) [#/Vol] 11.7 10*3/uL 3.8-11.6 [facility] XR bone surveyon 02-06-2023 XR bone survey [facility] Main [place] [place] [address] XRay Report Signed Patient: Kelsea Turcios MR#: [id number] 58 : 1960 Acct:[id number] Age/Sex: 62 / F ADM Date: 02/06/23 Loc: Room: Type: [facility] Attending Dr: Roxane Bills MD Copies to: [...] Domenico Brown M.D.02/06/2023 4:08 PM Dictation Location: [place] [address] Transcribed By: [facility] 02/06/23 1608 Dictated By: Domenico Brown DO 02/06/23 1606 Signed By: 02/06/23 1608 Normal [facility] MR hip LT wo conon MR hip LT wo con [facility] Main [place] [place] [address] MRI Report Signed Patient: Kelsea Turcios MR#: [id number] 58 : 1960 Acct:[id number] Age/Sex: 62 / F ADM Date: 02/04/23 [facility] Room: Type: [facility] CLI Attending Dr: Peri Tyson DO [...] Mccurdy Jr., D.OJane02/04/2023 12:35 PM Dictation Location: [place] [address] Transcribed By: [facility] 02/04/23 1235 Dictated By: Manish Mccurdy Jr, DO 02/04/23 1230 Signed By: 02/04/23 1235 Normal [facility] Alanine aminotransferase [En zymatic activity/volume] in Serum or PlasmaOrdered By: Roxane Bills on 01-22-2023 ALT [Catalytic activity/Vol] 47 U/L 7-52 [facility] Albumin [Mass/volume] in Ser um or Plasma by Bromocresol green (BCG) dye binding methoOrdered By: Roxane Bills on 01-22-2023 Albumin BCG dye [Mass/Vol] 3.7 g/dL 3.5-5.7 [facility] Alkaline phosphatase [Enzyma tic activity/volume] in Serum or PlasmaOrdered By: Roxane Bills on 01-22-2023 ALP [Catalytic activity/Vol] 169 U/L 34-104 [facility] Aspartate aminotransferase [ Enzymatic activity/volume] in Serum or PlasmaOrdered By: Roxane Bills on 01-22-2023 AST [Catalytic activity/Vol] 48 U/L 13-39 [facility] Basophils Auto (Bld) [#/Vol] Ordered By: Roxane Bills on 01-22-2023 Basophils (Bld) [#/Vol] 0.1 10*3/uL 0.0-0.2 [facility] Basophils/100 WBC Auto (Bld) Ordered By: Roxane Bills on 01-22-2023 Basophils/100 WBC (Bld) 0.5 % . [facility] Bilirubin.total [Mass/volume ] in Serum or PlasmaOrdered By: Roxane Bills on 01-22-2023 Bilirubin [Mass/Vol] 0.4 mg/dL 0.3-1.0 [facility] Calcium [Mass/volume] in Ser um or PlasmaOrdered By: Roxane Bills on 01-22-2023 Calcium [Mass/Vol] 8.6 mg/dL 8.6-10.3 [facility] Carbon dioxide, total [Moles /volume] in Serum or PlasmaOrdered By: Roxane Bills on 01-22-2023 CO2 [Moles/Vol] 32.1 mmol/L 21.0-31.0 [facility] Chloride [Moles/volume] in S logan or PlasmaOrdered By: Roxane Bills on 01-22-2023 Chloride [Moles/Vol] 100 mmol/L 98-107 [facility] Complete Blood Count Auto Di ffon 01-22-2023 Basophils (Bld) [#/Vol] 0.1 10*3/uL Normal 0.0-0.2 [facility] Comment on above: Result Comment: PERF ORMED BY: [facility] [address] [place] [address] PATHOLOGIST [employer] CONTROL REPRESENTATIVE AQUILINO JACK M.D. Performed By: #### C BC, PP #### [facility] [address] Basophils/100 WBC (Bld) 0.5 % Normal . [facility] Comment on above: Performed By: #### C BC, PP #### [facility] [address] [place] [address] [place] Eosinophils (Bld) [#/Vol] 0.5 10*3/uL High 0.0-0.45 [facility] Comment on above: Performed By: #### C BC, PP #### [facility] [address] Eosinophils/100 WBC (Bld) 4.2 % Normal . [facility] Comment on above: Performed By: #### C BC, PP #### [address] Erythrocyte distribution width (RBC) [Ratio] 14.2 % Normal 11.9-15.3 [facility] Comment on above: Performed By: #### C BC, PP #### [address] Hematocrit (Bld) [Volume fraction] 37.8 % Normal 34.0-46.4 [facility] Comment on above: Performed By: #### C BC, PP #### [place] [address] [place] Hemoglobin (Bld) [Mass/Vol] 12.3 g/dL Normal 11.8-15.4 [facility] Comment on above: Performed By: #### C BC, PP #### [place] [address] [place] Lymphocytes (Bld) [#/Vol] 3.2 10*3/uL Normal 1.00-4.8 [facility] Comment on above: Performed By: #### C BC, PP #### [facility] [address] [place] [address] [place] Lymphocytes/100 WBC (Bld) 25.5 % Normal . [facility] Comment on above: Performed By: #### C BC, PP #### [address] MCH (RBC) [Entitic mass] 30.0 pg Normal 24.7-34.3 [facility] Comment on above: Performed By: #### C BC, PP #### [address] MCV (RBC) [Entitic vol] 91.9 fL Normal 80-100 [facility] Comment on above: Performed By: #### C BC, PP #### [address] Mean Corpuscular HGB Conc 32.7 g/dL Normal 32.0-35.0 [facility] Comment on above: Performed By: #### C BC, PP #### [address] Monocytes (Bld) [#/Vol] 0.7 10*3/uL Normal 0.0-0.8 [facility] Comment on above: Performed By: #### C BC, PP #### [address] Monocytes/100 WBC (Bld) 5.6 % Normal . [facility] Comment on above: Performed By: #### C BC, PP #### [address] Neutrophils (Bld) [#/Vol] 8.0 10*3/uL High 1.8-7.7 [facility] Comment on above: Performed By: #### C BC, PP #### [address] Neutrophils/100 WBC (Bld) 64.2 % Normal . [facility] Comment on above: Performed By: #### C BC, PP #### [address] NRBC% 0.0 /100{WBC} Normal 0-0.5 [facility] Comment on above: Performed By: #### C BC, PP #### [address] Platelet mean volume (Bld) [Entitic vol] 7.0 fL Normal 6.3-10.7 [facility] Comment on above: Performed By: #### C BC, PP #### [address] Platelets (Bld) [#/Vol] 299 10*3/uL Normal 150-450 [facility] Comment on above: Performed By: #### C BC, PP #### [address] RBC (Bld) [#/Vol] 4.11 10*6/uL Normal 3.60-5.00 [facility] Comment on above: Performed By: #### C BC, PP #### [address] WBC (Bld) [#/Vol] 12.4 10*3/uL High 3.8-11.6 [facility] Comment on above: Performed By: #### C BC, PP #### [address] Comprehensive Metabolic Pane heriberto 01-22-2023 Albumin [Mass/Vol] 3.7 g/dL Normal 3.5-5.7 [facility] Comment on above: Performed By: #### C BC, PP #### [address] Albumin/Globulin [Mass ratio] 0.9 {ratio} Normal [facility] Comment on above: Performed By: #### C BC, PP #### [address] ALP [Catalytic activity/Vol] 169 U/L High 34-104 [facility] Comment on above: Performed By: #### C BC, PP #### [address] ALT [Catalytic activity/Vol] 47 U/L Normal 7-52 [facility] Comment on above: Performed By: #### C BC, PP #### [facility] [address] Anion gap [Moles/Vol] 13.1 mmol/L Normal 6.0-15.0 [facility] Comment on above: Performed By: #### C BC, PP #### [facility] [address] [place] [address] [place] AST [Catalytic activity/Vol] 48 U/L High 13-39 [facility] Comment on above: Performed By: #### C BC, PP #### [facility] [address] Bilirubin [Mass/Vol] 0.4 mg/dL Normal 0.3-1.0 [facility] Comment on above: Performed By: #### C BC, PP #### [facility] [address] Calcium [Mass/Vol] 8.6 mg/dL Normal 8.6-10.3 [facility] Comment on above: Performed By: #### C BC, PP #### [place] [address] [place] Chloride [Moles/Vol] 100 mmol/L Normal 98-107 [facility] Comment on above: Performed By: #### C BC, PP #### [address] CO2 [Moles/Vol] 32.1 mmol/L High 21.0-31.0 [facility] Comment on above: Performed By: #### C BC, PP #### [place] [address] [place] Creatinine [Mass/Vol] 1.37 mg/dL High 0.60-1.20 [facility] Comment on above: Performed By: #### C BC, PP #### [place] [address] [place] Creatinine Clr Calc Pharmacy 44.97 Normal [facility] Comment on above: Performed By: #### C BC, PP #### [address] [address] [place] GFR/1.73 sq M.predicted MDRD (S/P/Bld) [Vol rate/Area] 43.118 mL/min/{1.73_m2} Normal [facility] Comment on above: Performed By: #### C BC, PP #### [address] Globulin (S) [Mass/Vol] 4.2 g/dL Normal [facility] Comment on above: Performed By: #### C BC, PP #### [address] Glucose [Mass/Vol] 199 mg/dL High 70-100 [facility] Comment on above: Result Comment: [facility] Glucose Reference Range is dependent on time and content of last meal. Glucose of more than 200 mg/dL in a nonstressed, ambulatory subject supports the diagnosis of Diabetes Mellitus. ADA recommended reference range Performed By: #### C BC, PP #### [address] Potassium [Moles/Vol] 4.2 mmol/L Normal 3.5-5.1 [facility] Comment on above: Performed By: #### C BC, PP #### [address] Protein [Mass/Vol] 7.9 g/dL Normal 6.4-8.9 [facility] Comment on above: Performed By: #### C BC, PP #### [address] Sodium [Moles/Vol] 141 mmol/L Normal 136-145 [facility] Comment on above: Performed By: #### C BC, PP #### [address] Urea nitrogen [Mass/Vol] 13 mg/dL Normal 7-25 [facility] Comment on above: Performed By: #### C BC, PP #### [address] Creatinine [Mass/volume] in Serum or PlasmaOrdered By: Roxane Garibayse on 01-22-2023 Creatinine [Mass/Vol] 1.37 mg/dL 0.60-1.20 [facility] Eosinophils Auto (Bld) [#/Vo l]Ordered By: Roxane Bills on 01-22-2023 Eosinophils (Bld) [#/Vol] 0.5 10*3/uL 0.0-0.45 [facility] Eosinophils/100 WBC Auto (Bl d)Ordered By: Roxane Bills on 01-22-2023 Eosinophils/100 WBC (Bld) 4.2 % . [facility] Erythrocyte distribution wid th Auto (RBC) [Ratio]Ordered By: Roxane Bills on 01-22-2023 Erythrocyte distribution width (RBC) [Ratio] 14.2 % 11.9-15.3 [facility] Ferritinon 01-22-2023 Ferritin [Mass/Vol] 192.2 ng/mL Normal 11.0-306.8 [facility] Comment on above: Result Comment: PERF ORMED BY: [place] [address] PATHOLOGIST [employer]ERCIAL PEST CONTROL REPRESENTATIVE AQUILINO JACK M.D. Performed By: #### C BC, PP #### [facility] [address] [place] [address] [place] Ferritin [Mass/volume] in Se rum or PlasmaOrdered By: Roxane Sanju on 01-22-2023 Ferritin [Mass/Vol] 192.2 ng/mL 11.0-306.8 [facility] Free K+L LT Chains, Qn, Son 01-22-2023 Free [place] Light Chains, S 237.9 mg/L High 3.3-19.4 [facility] Comment on above: Performed By: #### C BC, PP #### [facility] [address] [place] [address] Free Lambda Light Chains, S 38.0 mg/L High 5.7-26.3 [facility] Comment on above: Performed By: #### C BC, PP #### [facility] [address] [place] [address] [place]/Lambda Ratio, S 6.26 High 0.26-1.65 [facility] Comment on above: Result Comment: Perf ormed at: CB - [facility] [address], [place], [place] [id number] Supervisor [place]: Jhoan Rich PhD, Phone: [phone] PERFORMED BY: [place] [address] PATHOLOGIST COMMERCIAL PEST CONTROL REPRESENTATIVE AQUILINO JACK M.D. Performed By: #### C BC, PP #### [address] Globulin Calc (S) [Mass/Vol] Ordered By: Roxane Bills on 01-22-2023 Globulin (S) [Mass/Vol] 4.2 g/dL [facility] Glucose [Mass/volume] in Ser um or PlasmaOrdered By: Roxane Bills on 01-22-2023 Glucose [Mass/Vol] 199 mg/dL 70-100 [facility] Comment on above: ADA recommended refe rence rangeRandom Glucose Reference Range is dependent on time and content of last meal. Glucose of more than 200 mg/dL in a nonstressed, ambulatory subject supports the diagnosis of Diabetes Mellitus. Hematocrit Auto (Bld) [Volum e fraction]Ordered By: Roxane Bills on 01-22-2023 Hematocrit (Bld) [Volume fraction] 37.8 % 34.0-46.4 [facility] Hemoglobin [Mass/volume] in BloodOrdered By: Roxane Bills on 01-22-2023 Hemoglobin (Bld) [Mass/Vol] 12.3 g/dL 11.8-15.4 [facility] IgA [Mass/volume] in Serum o r PlasmaOrdered By: Roxane Bills on 01-22-2023 IgA [Mass/Vol] 669 mg/dL 87-352 [facility] IgG [Mass/volume] in Serum o r PlasmaOrdered By: Roxane Bills on 01-22-2023 IgG [Mass/Vol] 1764 mg/dL 586-1602 [facility] IgM [Mass/volume] in Serum o r PlasmaOrdered By: Roxane Bills on 01-22-2023 IgM [Mass/Vol] 107 mg/dL 26-217 [facility] Comment on above: Performed at: - [facility] [id number] [place], [place] [id number] Director: Jhoan Rich PhD, Phone: [phone] Immunofixation,Serumon 01-22 Immunofixation, Serum Abnormal . [facility] Comment on above: Result Comment: Immu nofixation shows IgG monoclonal protein with kappa light chain specificity. PLEASE NOTE: Samples from patients receiving DARZALEX(R) (daratumumab) or SARCLISA(R)(isatuximab-irfc) treatment can appear as an IgG kappa and mask a complete response (CR). If this patient is receiving these therapies, this MITCH assay interference can be removed by ordering test number 924851- Immunofixation, Daratumumab-Specific, Serum or 362335- Immunofixation, Isatuximab-Specific, Serum and submitting a new sample for testing or by calling the lab to add this test to the current sample. Performed By: #### C BC, PP #### [facility] [address] [place] [address] [place] Immunoglobulin A, Serum 669 mg/dL High 87-352 [facility] Comment on above: Performed By: #### C BC, PP #### [facility] [address] [place] [address] [place] Immunoglobulin G 1764 mg/dL High 586-1602 [facility] Comment on above: Performed By: #### C BC, PP #### [facility] [address] [place] [address] [place] Immunoglobulin M, Serum 107 mg/dL Normal 26-217 [facility] Comment on above: Result Comment: Perf ormed at: CB - [facility] [place] [address] [place], [place] [id number] Supervisor [place]: Jhoan Rich PhD, Phone: [phone] Performed By: #### C BC, PP #### [place] [id number] [place] Immunoglobulin light chains. kappa.free [Mass/volume] in SerumOrdered By: Roxane Bills on 01-22-2023 Immunoglobulin light chains.kappa.free (S) [Mass/Vol] 237.9 mg/L 3.3-19.4 [facility] Immunoglobulin light chains. kappa.free/Immunoglobulin light chains.lambda.free [MassOrdered By: Roxane Bills on 01-22-2023 Immunoglobulin light chains.kappa.free/Immun oglobulin light chains.lambda.free (S) [Mass ratio] 6.26 0.26-1.65 [facility] Comment on above: Performed at: [address] [id number] Director: Jhoan Rich PhD, Phone: [phone] Immunoglobulin light chains. lambda.free [Mass/volume] in Serum or PlasmaOrdered By: Roxane Bills on 01-22-2023 Immunoglobulin light chains.lambda.free [Mass/Vol] 38.0 mg/L 5.7-26.3 [facility] Iron [Mass/volume] in Serum or PlasmaOrdered By: Roxane Bills on 01-22-2023 Iron [Mass/Vol] 74 ug/dL 50-212 [facility] Iron and TIBC Profileon 01-11 % Iron Saturation 23.8 % Normal 20-50 [facility] Comment on above: Performed By: #### C BC, PP #### [facility] [address] [place] [id number] [facility] Iron [Mass/Vol] 74 ug/dL Normal 50-212 [facility] Comment on above: Performed By: #### C BC, PP #### [facility] [address] [place] [address] [facility] Total Iron Binding Capacity 311 ug/dL Normal 255-450 [facility] Comment on above: Performed By: #### C BC, PP #### [facility] [address] [place] [address] [place] Transferrin [Mass/Vol] 222 mg/dL Normal 203-362 [facility] Comment on above: Performed By: #### C BC, PP #### [facility] [address] [place] [address] [place] Iron binding capacity [Mass/ volume] in Serum or PlasmaOrdered By: Roxane Bills on 01-22-2023 Iron binding capacity [Mass/Vol] 311 ug/dL 255-450 [facility] Iron saturation [Mass Fracti on] in Serum or PlasmaOrdered By: Roxane Bills on 01-22-2023 Iron saturation [Mass fraction] 23.8 % 20-50 [facility] Leukocytes [#/volume] correc shan for nucleated erythrocytes in Blood by Automated counOrdered By: Roxane Bills on 01-22-2023 WBC corrected for nucl RBC Auto (Bld) [#/Vol] 12.4 10*3/uL 3.8-11.6 [facility] Lymphocytes Auto (Bld) [#/Vo l]Ordered By: Roxane Bills on 01-22-2023 Lymphocytes (Bld) [#/Vol] 3.2 10*3/uL 1.00-4.8 [facility] Lymphocytes/100 WBC Auto (Bl d)Ordered By: Roxane Bills on 01-22-2023 Lymphocytes/100 WBC (Bld) 25.5 % . [facility] MCH Auto (RBC) [Entitic mass ]Ordered By: Roxane Bills on 01-22-2023 MCH (RBC) [Entitic mass] 30.0 pg 24.7-34.3 [facility] MCHC Auto (RBC) [Mass/Vol]Or dered By: Roxane Bills on 01-22-2023 MCHC (RBC) [Mass/Vol] 32.7 g/dL 32.0-35.0 [facility] MCV Auto (RBC) [Entitic vol] Ordered By: Roxane Bills on 01-22-2023 MCV (RBC) [Entitic vol] 91.9 fL 80-100 [facility] Monocytes Auto (Bld) [#/Vol] Ordered By: Roxane Bills on 01-22-2023 Monocytes (Bld) [#/Vol] 0.7 10*3/uL 0.0-0.8 [facility] Monocytes/100 WBC Auto (Bld) Ordered By: Roxane Bills on 01-22-2023 Monocytes/100 WBC (Bld) 5.6 % . [facility] Neutrophils Auto (Bld) [#/Vo l]Ordered By: Roxane Bills on 01-22-2023 Neutrophils (Bld) [#/Vol] 8.0 10*3/uL 1.8-7.7 [facility] Neutrophils/100 WBC Auto (Bl d)Ordered By: Roxane Bills on 01-22-2023 Neutrophils/100 WBC (Bld) 64.2 % . [facility] No Panel InformationOrdered By: Roxane Bills on 01-22-2023 Estimated GFR (CKD-EPI) 43.118 mL/Min [facility] Creatinine Clearance (Chem 44.97 [facility] Serum Immunofixation See comment . [facility] Comment on above: Immunofixation shows IgG monoclonal protein with kappalight chain specificity. PLEASE NOTE: Samples from patients receiving DARZALEX(R)(daratumumab) or SARCLISA(R)(isatuximab-irfc) treatmentcan appear as an IgG kappa and mask a complete response(CR). If this patient is receiving these therapies, thisIFE assay interference can be removed by ordering testnumber [id number] Immunofixation, Daratumumab-Specific,Serum or [id number]- Immunofixation, Isatuximab-Specific,Serum and submitting a new sample for testing or bycalling the lab to add this test to the current sample. Nucleated erythrocytes [Pres ence] in Blood by Automated countOrdered By: Roxane Bills on 01-22-2023 Nucleated RBC Auto Ql (Bld) 0.0 /100{WBC} 0-0.5 [facility] Platelet mean volume Auto (B ld) [Entitic vol]Ordered By: Roxane Bills on 01-22-2023 Platelet mean volume (Bld) [Entitic vol] 7.0 fL 6.3-10.7 [facility] Platelets Auto (Bld) [#/Vol] Ordered By: Roxane Bills on 01-22-2023 Platelets (Bld) [#/Vol] 299 10*3/uL 150-450 [facility] Potassium [Moles/volume] in Serum or PlasmaOrdered By: Roxane Bills on 01-22-2023 Potassium [Moles/Vol] 4.2 mmol/L 3.5-5.1 [facility] Protein [Mass/volume] in Ser um or PlasmaOrdered By: Roxane Bills on 01-22-2023 Protein [Mass/Vol] 7.9 g/dL 6.4-8.9 [facility] RBC Auto (Bld) [#/Vol]Ordere d By: Roxane Sanju on 01-22-2023 RBC (Bld) [#/Vol] 4.11 10*6/uL 3.60-5.00 [facility] Serum or plasma albumin/glob ulin mass ratioOrdered By: Roxane Bills on 01-22-2023 Albumin/Globulin [Mass ratio] 0.9 {ratio} [facility] Serum or plasma anion gap de terminationOrdered By: Roxane Bills on 01-22-2023 Anion gap [Moles/Vol] 13.1 mmol/L 6.0-15.0 [facility] Sodium [Moles/volume] in Ser um or PlasmaOrdered By: Roxane Bills on 01-22-2023 Sodium [Moles/Vol] 141 mmol/L 136-145 [facility] Transferrin [Mass/volume] in Serum or PlasmaOrdered By: Roxane Bills on 01-22-2023 Transferrin [Mass/Vol] 222 mg/dL 203-362 [facility] Urea nitrogen [Mass/volume] in Serum or PlasmaOrdered By: Roxane Bills on 01-22-2023 Urea nitrogen [Mass/Vol] 13 mg/dL 7-25 [facility] WBC Auto (Bld) [#/Vol]Ordere d By: Roxane Bills on 01-22-2023 WBC (Bld) [#/Vol] 12.4 10*3/uL 3.8-11.6 [facility] Glucose Glucometer (BldC) [M ass/Vol]Ordered By: Nik Pineda on 12-18-2022 Glucose [Mass/Vol] 202 mg/dL [facility] Comment on above: Random Glucose Refer ence Range is dependent on time and content of last meal. Glucose of more than 200 mg/dL in a nonstressed, ambulatory subject supports the diagnosis of Diabetes Mellitus. Glucose Poct Glucometerson 0 12-18-2022 Commemt1 Glu2: Cleaned Meter Normal [facility] Comment on above: Result Comment: PERF ORMED BY: [place] [address] PATHOLOGIST COMMERCIAL PEST CONTROL REPRESENTATIVE AQUILINO JACK M.D. Performed By: #### C BC, PP #### [address] Glucose [Mass/Vol] 202 mg/dL Normal [facility] Comment on above: Result Comment: [place] Glucose Reference Range is dependent on time and content of last meal. Glucose of more than 200 mg/dL in a nonstressed, ambulatory subject supports the diagnosis of Diabetes Mellitus. Performed By: #### C BC, PP #### [address] No Panel InformationOrdered By: Nik Pineda on 12-18-2022 Bedside Glucose Comment Glu2: cleaned meter [facility] MR lumbar spine wo conon MR lumbar spine wo con [facility] Main [place] [address] [place] [address] MRI Report Signed Patient: Kelsea Turcios MR#: [id number] 58 : 1960 Acct:[id number] Age/Sex: 62 / F ADM Date: 12/04/22 Loc: Room: Type: [facility] Attending Dr: Jez Josue DO Copies to: [...] stenosis. This is unchanged. Impression dictated by: Harvye Barry M.D.12/04/2022 10:27 AM Dictation Location: [place] [address] Transcribed By: [facility] 12/04/22 1027 Dictated By: Harvey Barry II, MD 12/04/22 1020 Signed By: 12/04/22 1027 Normal [facility] XR hip LT min 2V(w/wo pelvis )*on 09-16-2022 XR hip LT min 2V(w/wo pelvis)* [facility] Main [place] [address] [place] [address] XRay Report Signed Patient: Kelsea Turcios MR#: [id number] 58 : 1960 Acct:[id number] Age/Sex: 61 / F ADM Date: 09/16/22 Loc: XDS Room: Type: [facility] CLI Attending Dr: Peri Tyson DO [...] Harvey Barry M.D.09/16/2022 4:17 PM Dictation Location: [place] [address] Transcribed By: [facility] 09/16/22 161 Dictated By: Harvey Barry II, MD 09/16/22 161 Signed By: 09/16/22 161 Normal [facility] Albumin [Mass/volume] in Ser um or Plasma by Bromocresol green (BCG) dye binding methoOrdered By: Jeannie Aguilar on 08-07-2022 Albumin BCG dye [Mass/Vol] 3.8 g/dL 3.5-5.7 [facility] C-Peptideon 08-07-2022 C-Peptide 1.6 ng/mL Normal 1.1-4.4 [facility] Comment on above: Result Comment: C-Pe ptide reference interval is for fasting patients. Performed at: - [address] [id number] Supervisor [place]: Jhoan Rich PhD, Phone: [phone] PERFORMED BY: [address] [place] [address] PATHOLOGIST COMMERCIAL PEST CONTROL REPRESENTATIVE AQUILINO JACK M.D. Performed By: #### R ENAL, LIPID, [id number] #### [facility] [address] #### CPEP #### [facility] , Calcium [Mass/volume] in Ser um or PlasmaOrdered By: Jeannie Aguilar on 08-07-2022 Calcium [Mass/Vol] 9.2 mg/dL 8.6-10.3 [facility] Carbon dioxide, total [Moles /volume] in Serum or PlasmaOrdered By: Jeannie Aguilar on 08-07-2022 CO2 [Moles/Vol] 32.6 mmol/L 21.0-31.0 [facility] Chloride [Moles/volume] in S logan or PlasmaOrdered By: Jeannie Aguilar on 08-07-2022 Chloride [Moles/Vol] 104 mmol/L 98-107 [facility] Cholesterol [Mass/volume] in Serum or PlasmaOrdered By: Jeannie Aguilar on 08-07-2022 Cholesterol [Mass/Vol] 148 mg/dL 140-200 [facility] Comment on above: Chol less than 200 m g/dl low riskChol 201-239 mg/dl borderline riskChol 240 mg/dl and greater high risk Cholesterol in LDL Calc [Mas s/Vol]Ordered By: Jeannie Aguilar on 08-07-2022 Cholesterol in LDL [Mass/Vol] 82 mg/dL 0-100 [facility] Comment on above: LDL ATP III CLASSIFI CATIONLDL less than 100 mg/dL OptimalLDL 100-129 mg/dL Near or above optimalLDL 130-159 mg/dL Borderline highLDL 160-189 mg/dL HighLDL greater than 189 mg/dL Very high Cholesterol in VLDL Calc [Ma ss/Vol]Ordered By: Jeannie Aguilar on 08-07-2022 Cholesterol in VLDL [Mass/Vol] 15 mg/dL [facility] Creatinine [Mass/volume] in Serum or PlasmaOrdered By: Jeannie Aguilar on 08-07-2022 Creatinine [Mass/Vol] 1.65 mg/dL 0.60-1.20 [facility] Creatinine [Mass/volume] in UrineOrdered By: Jeannie Aguilar on 08-07-2022 Creatinine (U) [Mass/Vol] 51.0 mg/dL 11.0-20.0 [facility] Glucose [Mass/volume] in Ser um or PlasmaOrdered By: Jeannie Aguilar on 08-07-2022 Glucose [Mass/Vol] 71 mg/dL 70-100 [facility] Comment on above: ADA recommended refe rence rangeRandom Glucose Reference Range is dependent on time and content of last meal. Glucose of more than 200 mg/dL in a nonstressed, ambulatory subject supports the diagnosis of Diabetes Mellitus. Lipid Panelon 08-07-2022 Cholesterol [Mass/Vol] 148 mg/dL Normal 140-200 [facility] Comment on above: Order Comment: PT IS FASTING Result Comment: Chol less than 200 mg/dl low risk Chol 201-239 mg/dl borderline risk Chol 240 mg/dl and greater high risk Performed By: #### R ENAL, LIPID, [id number] #### [facility] [address] [place] [address] #### CPEP #### [facility] , Cholesterol in HDL [Mass/Vol] 51 mg/dL Normal 35-85 [facility] Comment on above: Order Comment: PT IS FASTING Result Comment: HDL CHOL ATP-III CLASSIFICATION Cardiovascular Risk HDL > or equal to 60 mg/dL LOW HDL < 40 mg/dL HIGH Performed By: #### R ENAL, LIPID, [id number] #### [facility] [address] [place] [address] #### CPEP #### [facility] , Cholesterol.total/Shahla sterol in HDL [Mass ratio] 2.9 {ratio} Normal <5.0 [facility] Comment on above: Order Comment: PT IS FASTING Performed By: #### R ENAL, LIPID, [id number] #### [facility] [address] [place] [address] [place] #### CPEP #### [facility] , LDL Cholesterol,Calculated 82 mg/dL Normal 0-100 [facility] Comment on above: Order Comment: PT IS FASTING Result Comment: LDL ATP III CLASSIFICATION LDL less than 100 mg/dL Optimal LDL 100-129 mg/dL Near or above optimal LDL 130-159 mg/dL Borderline high LDL 160-189 mg/dL High LDL greater than 189 mg/dL Very high Performed By: #### R ENAL, LIPID, [id number] #### [address] #### CPEP #### [facility] , Triglyceride w/Reflex 75 mg/dL Normal 0-149 [facility] Comment on above: Order Comment: PT IS FASTING Result Comment: TRIG ATP III CLASSIFICATION TRIG less than 150 mg/dL Normal TRIG 150-199 mg/dL Borderline high TRIG 200-500 mg/dL High TRIG greater than 500 mg/dL Very high Standard traceable to the Center for Disease Conrtrol and Prevention (CDC) test method. Performed By: #### R ENAL, LIPID, [id number] #### [address] #### CPEP #### [facility] , VLDL CHOLESTEROL 15 mg/dL Normal [facility] Comment on above: Order Comment: PT IS FASTING Performed By: #### R ENAL, LIPID, [id number] #### [address] #### CPEP #### [facility] , MicroAlb Creat Ratio,Uon Albumin DL <= 20 mg/L (U) [Mass/Vol] mg/dL Normal 0.0-1.8 [facility] Comment on above: Performed By: #### R ENAL, LIPID, [id number] #### [place] [address] [place] #### CPEP #### [facility] , Creatinine, Urine (Random) 51.0 mg/dL High 11.0-20.0 [facility] Comment on above: Performed By: #### R ENAL, LIPID, [id number] #### [place] [address] [place] #### CPEP #### [facility] , Microalbumin/Creatinine Ratio Not performed Normal 0.0-30.0 [facility] Comment on above: Result Comment: PERF ORMED BY: [place] [address] PATHOLOGIST COMMERCIAL PEST CONTROL REPRESENTATIVE AQUILINO JACK M.D. Performed By: #### R ENAL, LIPID, [id number] #### [address] #### CPEP #### [facility] , Microalbumin [Mass/volume] i n UrineOrdered By: Jeannie Aguilar on 08-07-2022 Albumin DL <= 20 mg/L (U) [Mass/Vol] mg/dL 0.0-1.8 [facility] No Panel InformationOrdered By: Jeannie Aguilar on 08-07-2022 C-Peptide 1.6 ng/mL 1.1-4.4 [facility] Comment on above: C-Peptide reference interval is for fasting patients.Performed at: [facility] [place] [id number] Director: Jhoan Rich PhD, Phone: [phone] Estimated GFR (CKD-EPI) 34.710 mL/Min [facility] Creatinine Clearance (Chem N/A [facility] Phosphate [Mass/volume] in S logan or PlasmaOrdered By: Jeannie Aguilar on 08-07-2022 Phosphate [Mass/Vol] 4.5 mg/dL 3.7-7.2 [facility] Potassium [Moles/volume] in Serum or PlasmaOrdered By: Jeannie Aguilar on 08-07-2022 Potassium [Moles/Vol] 4.8 mmol/L 3.5-5.1 [facility] Renal Function Panelon 08-07 Albumin [Mass/Vol] 3.8 g/dL Normal 3.5-5.7 [facility] Comment on above: Order Comment: PT IS FASTING Performed By: #### R ENAL, LIPID, [id number] #### [facility] [address] [place] [address] #### CPEP #### [facility] , Anion gap [Moles/Vol] 12.2 mmol/L Normal 6.0-15.[address] [facility] Comment on above: Order Comment: PT IS FASTING Performed By: #### R ENAL, LIPID, [id number] #### [facility] [address] [place] [address] #### CPEP #### [facility] , Calcium [Mass/Vol] 9.2 mg/dL Normal 8.6-10.3 [facility] Comment on above: Order Comment: PT IS FASTING Performed By: #### R ENAL, LIPID, [id number] #### [address] #### CPEP #### [facility] , Chloride [Moles/Vol] 104 mmol/L Normal 98-107 [facility] Comment on above: Order Comment: PT IS FASTING Performed By: #### R ENAL, LIPID, [id number] #### [address] #### CPEP #### [facility] , CO2 [Moles/Vol] 32.6 mmol/L High 21.0-31.0 [facility] Comment on above: Order Comment: PT IS FASTING Performed By: #### R ENAL, LIPID, [id number] #### [address] #### CPEP #### [facility] , Creatinine [Mass/Vol] 1.65 mg/dL High 0.60-1.20 [facility] Comment on above: Order Comment: PT IS FASTING Performed By: #### R ENAL, LIPID, [id number] #### [place] [address] [place] #### CPEP #### [facility] , GFR/1.73 sq M.predicted MDRD (S/P/Bld) [Vol rate/Area] 34.710 mL/min/{1.73_m2} Normal [facility] Comment on above: Order Comment: PT IS FASTING Performed By: #### R ENAL, LIPID, [id number] #### [address] #### CPEP #### [facility] , Glucose [Mass/Vol] 71 mg/dL Normal 70-100 [facility] Comment on above: Order Comment: PT IS FASTING Result Comment: [facility] Glucose Reference Range is dependent on time and content of last meal. Glucose of more than 200 mg/dL in a nonstressed, ambulatory subject supports the diagnosis of Diabetes Mellitus. ADA recommended reference range Performed By: #### R ENAL, LIPID, [id number] #### [place] [address] [place] #### CPEP #### [facility] , Phosphate [Mass/Vol] 4.5 mg/dL Normal 3.7-7.2 [facility] Comment on above: Order Comment: PT IS FASTING Performed By: #### R ENAL, LIPID, [id number] #### [address] #### CPEP #### [facility] , Potassium [Moles/Vol] 4.8 mmol/L Normal 3.5-5.1 [facility] Comment on above: Order Comment: PT IS FASTING Performed By: #### R ENAL, LIPID, [id number] #### [place] [address] [place] #### CPEP #### [facility] , Sodium [Moles/Vol] 144 mmol/L Normal 136-145 [facility] Comment on above: Order Comment: PT IS FASTING Performed By: #### R ENAL, LIPID, [id number] #### [facility] [address] [place] [address] [place] #### CPEP #### [facility] , Urea nitrogen [Mass/Vol] 22 mg/dL Normal 7-25 [facility] Comment on above: Order Comment: PT IS FASTING Performed By: #### R ENAL, LIPID, [id number] #### [facility] [address] [place] [address] [place] #### CPEP #### [facility] , Serum or plasma anion gap de terminationOrdered By: Jeannie Aguilar on 08-07-2022 Anion gap [Moles/Vol] 12.2 mmol/L 6.0-15.0 [facility] Serum or plasma high density lipoprotein (HDL) cholesterol measurementOrdered By: Jeannie Aguilar on 08-07-2022 Cholesterol in HDL [Mass/Vol] 51 mg/dL 35-85 [facility] Comment on above: HDL CHOL ATP-III CLA SSIFICATION Cardiovascular RiskHDL > or equal to 60 mg/dL LOWHDL < 40 mg/dL HIGH Serum or plasma total choles terol/high density lipoprotein (HDL) cholesterol mass ratOrdered By: Jeannie Aguilar on 08-07-2022 Cholesterol.total/Shahla sterol in HDL [Mass ratio] 2.9 {ratio} <5.0 [facility] Sodium [Moles/volume] in Ser um or PlasmaOrdered By: Jeannie Aguilar on 08-07-2022 Sodium [Moles/Vol] 144 mmol/L 136-145 [facility] Triglyceride [Mass/volume] i n Serum or PlasmaOrdered By: Jeannie Aguilar on 08-07-2022 Triglyceride [Mass/Vol] 75 mg/dL 0-149 [facility] Comment on above: TRIG ATP III CLASSIF ICATIONTRIG less than 150 mg/dL NormalTRIG 150-199 mg/dL Borderline highTRIG 200-500 mg/dL High TRIG greater than 500 mg/dL Very highStandard traceable to the Center for Disease Conrtrol and Prevention (CDC) test method. Urea nitrogen [Mass/volume] in Serum or PlasmaOrdered By: Jeannie Aguilar on 08-07-2022 Urea nitrogen [Mass/Vol] 22 mg/dL 7- [facility] Urine microalbumin/creatinin e mass ratioOrdered By: Jeannie Aguilar on 08-07-2022 Albumin/Creatinine DL <= 20 mg/L (U) [Mass ratio] TNP [facility] Comment on above: Test not performed Vitamin D 25 Hydroxy Totalon 08-07-2022 Vitamin D 25 Hydroxy Total 47.6 ng/mL Normal 30-100 [facility] Comment on above: Order Comment: PT IS FASTING Result Comment: KOBI MIN D STATUS 25(OH)VITAMIN D RANGE (ng/mL) Deficient <20 Insufficient 20 to <30 Sufficient 30 to 100 Reference: Vanessa Negron, Caesar ASIF, et al. Evaluation,treatment, and prevention of vitamin D deficiency; an Endocrine Society clinical practice guideline. JCEM. 2010; 96(7):1911-. PERFORMED BY: [place] [address] PATHOLOGIST COMMERCIAL PEST CONTROL REPRESENTATIVE AQUILINO JACK M.D. Performed By: #### R ENAL, LIPID, [id number] #### [address] #### CPEP #### [facility] , Vitamin D+Metabolites [Mass/ volume] in Serum or PlasmaOrdered By: Jeannie Aguilar on 08-07-2022 Vitamin D+Metabolites [Mass/Vol] 47.6 ng/mL 30-100 [facility] Comment on above: VITAMIN D STATUS 25( OH)VITAMIN D RANGE (ng/mL) Deficient <20 Insufficient 20 to <30Sufficient 30 to 100Reference: Vanessa Negron, Caesar ASIF, et al. Evaluation,treatment, and prevention of vitamin D deficiency; an Endocrine Society clinical practice guideline. JCEM. 2010; 96(7):1911-30. US venous duplex LE BIon US venous duplex LE BI [facility] Main [place] [address] [place] [address] Ultrasound Report Signed Patient: Kelsea Turcios MR#: [id number] 58 : 1960 Acct:[id number] Age/Sex: 61 / F ADM Date: 07/07/22 Loc: [facility] Room: Type: [facility] Attending Dr: Domenico Whitmore MD Ordering [...] measuring 3 mm in diameter. No significant roller hand incompetence is noted. There is no lesser [...] to 3 mm in diameter. No significant roller hand incompetence is noted. The lesser saphenous vein is normal in size. US/US venous duplex LE BI IMPRESSION: No evidence for deep vein thrombosis in either lower extremity. Minimal venous valvular incompetence is noted. There are more varicosities in the left leg than in the right leg Impression dictated by: Domenico Whitmore M.D.08/04/2022 1:47 PM Dictation Location: [facility] Tech: Eve Ramos Transcribed By: RACHEL 08/04/221346 Dictated By: Domenico Whitmore MD 08/04/221343 Signed By: 08/04/221346 Normal [facility] Albumin [Mass/volume] in Ser um or PlasmaOrdered By: Shanae Galicia on 07-22-2022 Albumin [Mass/Vol] 3.2 g/dL 2.9-4.4 [facility] Basophils Auto (Bld) [#/Vol] Ordered By: Shanae Galicia on 07-22-2022 Basophils (Bld) [#/Vol] 0.0 10*3/uL 0.0-0.2 [facility] Basophils/100 WBC Auto (Bld) Ordered By: Shanae Galicia on 07-22-2022 Basophils/100 WBC (Bld) 0.5 % . [facility] Eosinophils Auto (Bld) [#/Vo l]Ordered By: Shanae Galciia on 07-22-2022 Eosinophils (Bld) [#/Vol] 0.6 10*3/uL 0.0-0.45 [facility] Eosinophils/100 WBC Auto (Bl d)Ordered By: Shanae Galicia on 07-22-2022 Eosinophils/100 WBC (Bld) 6.1 % . [facility] Erythrocyte distribution wid th Auto (RBC) [Ratio]Ordered By: Shanae Galicia on 07-22-2022 Erythrocyte distribution width (RBC) [Ratio] 14.7 % 11.9-15.3 [facility] Ferritin [Mass/volume] in Se rum or PlasmaOrdered By: Shanae Galicia on 07-22-2022 Ferritin [Mass/Vol] 284.4 ng/mL 11.0-306.8 [facility] Hematocrit Auto (Bld) [Volum e fraction]Ordered By: Shanae Galicia on 07-22-2022 Hematocrit (Bld) [Volume fraction] 37.1 % 34.0-46.4 [facility] Hemoglobin [Mass/volume] in BloodOrdered By: Shanae Galicia on 07-22-2022 Hemoglobin (Bld) [Mass/Vol] 12.1 g/dL 11.8-15.4 [facility] IgA [Mass/volume] in Serum o r PlasmaOrdered By: Shanae Grayson on 07-22-2022 IgA [Mass/Vol] 656 mg/dL 87-352 [facility] IgG [Mass/volume] in Serum o r PlasmaOrdered By: Shanae Grayson on 07-22-2022 IgG [Mass/Vol] 1303 mg/dL 586-1602 [facility] IgM [Mass/volume] in Serum o r PlasmaOrdered By: Shanae Galicia on 07-22-2022 IgM [Mass/Vol] 91 mg/dL 26-217 [facility] Comment on above: Performed at: [employer] [address] [id number] Director: Jhoan Rich PhD, Phone: [phone] Immunoglobulin light chains. kappa.free [Mass/volume] in SerumOrdered By: Shanae Galicia on 07-22-2022 Immunoglobulin light chains.kappa.free (S) [Mass/Vol] 120.4 mg/L 3.3-19.4 [facility] Immunoglobulin light chains. kappa.free/Immunoglobulin light chains.lambda.free [MassOrdered By: Shanae Grayson on 07-22-2022 Immunoglobulin light chains.kappa.free/Immun oglobulin light chains.lambda.free (S) [Mass ratio] 3.66 0.26-1.65 [facility] Comment on above: Performed at: [facility] [id number] Director: Jhoan Rich PhD, Phone: [phone] Immunoglobulin light chains. lambda.free [Mass/volume] in Serum or PlasmaOrdered By: Shanae Galicia on 07-22-2022 Immunoglobulin light chains.lambda.free [Mass/Vol] 32.9 mg/L 5.7-26.3 [facility] Iron [Mass/volume] in Serum or PlasmaOrdered By: Shanae Galicia on 07-22-2022 Iron [Mass/Vol] 67 ug/dL 50-212 [facility] Iron binding capacity [Mass/ volume] in Serum or PlasmaOrdered By: Shanae Galicia on 07-22-2022 Iron binding capacity [Mass/Vol] 290 ug/dL 255-450 [facility] Iron saturation [Mass Fracti on] in Serum or PlasmaOrdered By: Shanae Galicia on 07-22-2022 Iron saturation [Mass fraction] 23.1 % 20-50 [facility] Laboratory - Chemistry and C hemistry - challengeOrdered By: Shanae Galicia on 07-22-2022 Protein [Mass/Vol] 0.5 g/dL Not Observed [facility] Leukocytes [#/volume] correc shan for nucleated erythrocytes in Blood by Automated counOrdered By: Shanae Galicia on 07-22-2022 WBC corrected for nucl RBC Auto (Bld) [#/Vol] 10.2 10*3/uL 3.8-11.6 [facility] Lymphocytes Auto (Bld) [#/Vo l]Ordered By: Shanae Galicia on 07-22-2022 Lymphocytes (Bld) [#/Vol] 2.6 10*3/uL 1.00-4.8 [facility] Lymphocytes/100 WBC Auto (Bl d)Ordered By: Shanae Galicia on 07-22-2022 Lymphocytes/100 WBC (Bld) 25.2 % . [facility] MCH Auto (RBC) [Entitic mass ]Ordered By: Shanae Galicia on 07-22-2022 MCH (RBC) [Entitic mass] 29.6 pg 24.7-34.3 [facility] MCHC Auto (RBC) [Mass/Vol]Or dered By: Shanae Galicia on 07-22-2022 MCHC (RBC) [Mass/Vol] 32.7 g/dL 32.0-35.0 [facility] MCV Auto (RBC) [Entitic vol] Ordered By: Shanae Galicia on 07-22-2022 MCV (RBC) [Entitic vol] 90.4 fL 80-100 [facility] Monocytes Auto (Bld) [#/Vol] Ordered By: Shanae Galicia on 07-22-2022 Monocytes (Bld) [#/Vol] 0.7 10*3/uL 0.0-0.8 [facility] Monocytes/100 WBC Auto (Bld) Ordered By: Shanae Galicia on 07-22-2022 Monocytes/100 WBC (Bld) 7.0 % . [facility] Neutrophils Auto (Bld) [#/Vo l]Ordered By: Shanea Galicia on 07-22-2022 Neutrophils (Bld) [#/Vol] 6.2 10*3/uL 1.8-7.7 [facility] Neutrophils/100 WBC Auto (Bl d)Ordered By: Shanae Galicia on 07-22-2022 Neutrophils/100 WBC (Bld) 61.2 % . [facility] No Panel InformationOrdered By: Shanae Galicia on 07-22-2022 Protein Electrophoresis Note See comment . [facility] Comment on above: Protein electrophore sis scan will follow via computer,mail, or cat sitter delivery.Performed at: [employer] [id number] Director: Jhoan Rich PhD, Phone: [phone] Serum Immunofixation See comment . [facility] Comment on above: Immunofixation shows IgG monoclonal protein with kappalight chain specificity. PLEASE NOTE: Samples from patients receiving DARZALEX(R)(daratumumab) or SARCLISA(R)(isatuximab-irfc) treatmentcan appear as an IgG kappa and mask a complete response(CR). If this patient is receiving these therapies, thisIFE assay interference can be removed by ordering testnumber 488508- Immunofixation, Daratumumab-Specific,Serum or [id number]- Immunofixation, Isatuximab-Specific,Serum and submitting a new sample for testing or bycalling the lab to add this test to the current sample. Nucleated erythrocytes [Pres ence] in Blood by Automated countOrdered By: Shanae Galicia on 07-22-2022 Nucleated RBC Auto Ql (Bld) 0.0 /100{WBC} 0-0.5 [facility] Platelet mean volume Auto (B ld) [Entitic vol]Ordered By: Shanae Galicia on 07-22-2022 Platelet mean volume (Bld) [Entitic vol] 7.4 fL 6.3-10.7 [facility] Platelets Auto (Bld) [#/Vol] Ordered By: Shanae Galicia on 07-22-2022 Platelets (Bld) [#/Vol] 267 10*3/uL 150-450 [facility] Protein [Mass/volume] in Ser um or PlasmaOrdered By: Shanae Galicia on 07-22-2022 Protein [Mass/Vol] 7.1 g/dL 6.0-8.5 [facility] RBC Auto (Bld) [#/Vol]Ordere d By: Shanae Galicia on 07-22-2022 RBC (Bld) [#/Vol] 4.10 10*6/uL 3.60-5.00 [facility] Serum globulin measurement ( mass/volume)Ordered By: Shanae Galicia on 07-22-2022 Globulin (S) [Mass/Vol] 3.9 g/dL 2.2-3.9 [facility] Serum or plasma albumin/glob ulin mass ratioOrdered By: Shanae Galicia on 07-22-2022 Albumin/Globulin [Mass ratio] 0.8 {ratio} 0.7-1.7 [facility] Serum or plasma alpha 1 glob ulin measurement by electrophoresis (mass/volume)Ordered By: Shanae Galicia on 07-22-2022 Alpha 1 globulin Elph [Mass/Vol] 0.3 g/dL 0.0-0.4 [facility] Serum or plasma alpha 2 glob ulin measurement by electrophoresis (mass/volume)Ordered By: Shanae Galicia on 07-22-2022 Alpha 2 globulin Elph [Mass/Vol] 1.0 g/dL 0.4-1.0 [facility] Serum or plasma beta globuli n measurement by electrophoresis (mass/volume)Ordered By: Shanae Galicia on 07-22-2022 Beta globulin Elph [Mass/Vol] 1.2 g/dL 0.7-1.3 [facility] Serum or plasma gamma globul in measurement by electrophoresis (mass/volume)Ordered By: Shanae Galicia on 07-22-2022 Gamma globulin Elph [Mass/Vol] 1.4 g/dL 0.4-1.8 [facility] Transferrin [Mass/volume] in Serum or PlasmaOrdered By: Shanae Galicia on 07-22-2022 Transferrin [Mass/Vol] 207 mg/dL 203-362 [facility] WBC Auto (Bld) [#/Vol]Ordere d By: Shanae Galicia on 07-22-2022 WBC (Bld) [#/Vol] 10.2 10*3/uL 3.8-11.6 [facility] FFD mammogram Breast - bilat eral Screeningon 05-23-2022 MM screening mammo BI w/CAD [facility] [employer] Other MM screening mammo BI w/CAD [facility] [place] [employer] Other MM screening mammo BI w/CAD [facility] [employer] Other MM screening mammo BI w/[place] [address] [employer] Other MM screening mammo BI w/CAD Mammography Report [employer] Other MM screening mammo BI w/CAD Signed [employer] Other MM screening mammo BI w/CAD Patient: Kelsea Turcios MR#: [id number] [employer] Other MM screening mammo BI w/CAD 58 [employer] Other MM screening mammo BI w/CAD : 1960 Acct:[id number] [employer] Other MM screening mammo BI w/CAD Age/Sex: 61 / F ADM Date: 05/23/22 [employer] Other MM screening mammo BI w/CAD Loc: [place] Room: Type: REG CLI [employer] Other MM screening mammo BI w/CAD Attending Dr: Peri Tyson DO [employer] Other MM screening mammo BI w/CAD Copies to: Peri Tyson DO [employer] Other MM screening mammo BI w/CAD Ordering Provider: Peri Tyson DO [employer] Other MM screening mammo BI w/CAD Date of Service: 05/23/22 [employer] Other MM screening mammo BI w/CAD MM/MM screening mammo BI w/CAD: Breast cancer screening [employer] Other MM screening mammo BI w/CAD Bilateral Screening Full Field digital mammogram with 3-D imaging. [employer] Other MM screening mammo BI w/CAD Full field digital CC and MLO imaging performed. CAD utilized. [employer] Other MM screening mammo BI w/CAD COMPARISON: 04/17/2021 [employer] Other MM screening mammo BI w/CAD HISTORY:Screening [employer] Other MM screening mammo BI w/CAD FINDINGS: Scattered fibroglandular densities of the breast parenchyma identified. No developing [employer] Other MM screening mammo BI w/CAD architectural distortion, developing focal breast asymmetry or developing malignant calcifications [employer] Other MM screening mammo BI w/CAD identified. Scattered benign calcifications identified. [employer] Other MM screening mammo BI w/CAD MM/MM screening mammo BI w/CAD [employer] Other MM screening mammo BI w/CAD IMPRESSION:No mammographic evidence of malignancy. Routine follow-up recommended in one year. [employer] Other MM screening mammo BI w/CAD RESULT CODE: 2 [employer] Other MM screening mammo BI w/CAD Benign Findings(s) [employer] Other MM screening mammo BI w/CAD DENSITY CODE: 2 (approximately 25-50% glandular) [employer] Other MM screening mammo BI w/CAD FOLLOW UP: 1YR [employer] Other MM screening mammo BI w/CAD THE FALSE-NEGATIVE RATE OF MAMMOGRAPHY IS APPROXIMATELY 10%. [employer] Other MM screening mammo BI w/CAD IMAGING OF A PALPABLE ABNORMALITY MUST BE BASED ON CLINICAL GROUNDS. [employer] Other MM screening mammo BI w/CAD PATIENT WAS ENTERED INTO A REMINDER SYSTEM WITH A TARGET DUE DATE FOR THE NEXT MAMMOGRAM. [employer] Other MM screening mammo BI w/CAD Impression dictated by: Domenico Brown M.D.05/23/2022 12:04 PM [employer] Other MM screening mammo BI w/CAD Dictation Location: [facility] [employer] Other MM screening mammo BI w/CAD Transcribed By: PWS 05/23/22 1204 [employer] Other MM screening mammo BI w/CAD Dictated By: Domenico Brown DO 05/23/22 1159 [employer] Other MM screening mammo BI w/CAD Signed By: [employer] Other MM screening mammo BI w/CAD 05/23/22 120 [employer] Other Albumin [Mass/volume] in Ser um or PlasmaOrdered By: Peri Tyson on 05-09-2022 Albumin [Mass/Vol] 3.4 g/dL 3.2-5.5 [facility] Cholesterol [Mass/volume] in Serum or PlasmaOrdered By: Peri Tyson on 05-09-2022 Cholesterol [Mass/Vol] 149 mg/dL Normal 140-2 00 mg/dL [facility] Comment on above: Chol less than 200 m g/dl low riskChol 201-239 mg/dl borderline riskChol 240 mg/dl and greater high risk Cholesterol in LDL Calc [Mas s/Vol]Ordered By: Peri Tyson on 05-09-2022 Cholesterol in LDL [Mass/Vol] 85 mg/dL 0-100 [facility] Comment on above: LDL ATP III CLASSIFI CATIONLDL less than 100 mg/dL OptimalLDL 100-129 mg/dL Near or above optimalLDL 130-159 mg/dL Borderline highLDL 160-189 mg/dL HighLDL greater than 189 mg/dL Very high Cholesterol in VLDL Calc [Ma ss/Vol]Ordered By: Peri Tyson on 05-09-2022 Cholesterol in VLDL [Mass/Vol] 19 mg/dL [facility] Comprehensive Metabolic Pane heriberto 05-09-2022 Albumin [Mass/Vol] 3.307012 g/dL Normal 3.2-5.5 g/dL [employer] Other ALT [Catalytic activity/Vol] 41 U/L Normal 10-60 U/L [employer] Other Bilirubin [Mass/Vol] 0.5925791 mg/dL Normal 0.3- 1.2 mg/dL [employer] Other Calcium [Mass/Vol] 9.0131567 mg/dL Normal 8.2-10 .2 mg/dL [employer] Other CO2 [Moles/Vol] 30.51470397 mmol/L High 22.0-3 0.0 mmol/L [employer] Other Creatinine [Mass/Vol] 1.36858964 mg/dL High 0. 44-1.03 mg/dL [employer] Other Potassium [Moles/Vol] 4.96464338 mmol/L Normal 3 .5-5.1 mmol/L [employer] Other Protein [Mass/Vol] 7.531675 g/dL Normal 6.1-7.9 g/dL [employer] Other Comprehensive Metabolic Panel 45 [employer] Other Comprehensive Metabolic Panel 55 [employer] Other Comprehensive Metabolic Panel 4.2 g/dL [employer] Other Creatinine and Glomerular fi ltration rate.predicted panel (S/P/Bld)Ordered By: Peri Tyson on 05-09-2022 Creatinine [Mass/Vol] 1.20 mg/dL 0.44-1.03 [facility] Estimated glomerular filtrat ion rate (GFR) non- AmericanOrdered By: Peri Tyson on 05-09-2022 GFR/1.73 sq M.predicted among non-blacks MDRD (S/P/Bld) [Vol rate/Area] 45 mL/Min [facility] Globulin Calc (S) [Mass/Vol] Ordered By: Peri Tyson on 05-09-2022 Globulin (S) [Mass/Vol] 4.2 g/dL [facility] Lipid Panelon 05-09-2022 Cholesterol in LDL Elph Qn 85 mg/dL Normal 0-100 mg/dL [employer] Other Lipid Panel 96 mg/dL Normal 35-149 mg/dL [employer] Other Lipid Panel 19 mg/dL [employer] Other Microalbumin, Urine (Random) on 05-09-2022 Albumin DL <= 20 mg/L (U) [Mass/Vol] 0.4244558 mg/dL Normal 0.0-1.8 mg/dL [employer] Other No Panel InformationOrdered By: Peri Tyson on 05-09-2022 Estimated GFR () 55 mL/Min [facility] Comment on above: GFR estimated refere nce range: According to KDOQI guidelines, <60 ml/min/1.73m2 is sufficient to diagnose a patient with chronic kidney disease. Pharmacy Creatinine Clearance (Chem N/A [facility] Protein [Mass/volume] in Ser um or PlasmaOrdered By: Peri Tyson on 05-09-2022 Protein [Mass/Vol] 7.6 g/dL 6.1-7.9 [facility] Serum or plasma alanine borden otransferase measurement without P-5'-P (enzymatic activiOrdered By: Peri Tyson on 05-09-2022 ALT No additional P-5'-P [Catalytic activity/Vol] 41 U/L 10-60 [facility] Serum or plasma albumin/glob ulin mass ratioOrdered By: Peri Tyson on 05-09-2022 Albumin/Globulin [Mass ratio] 0.8 {ratio} [facility] Serum or plasma alkaline mo sphatase measurement (enzymatic activity/volume)Ordered By: Prei Tyson on 05-09-2022 ALP [Catalytic activity/Vol] 137 U/L High 32-92 U/L [facility] Serum or plasma anion gap de terminationOrdered By: Peri Tyson on 05-09-2022 Anion gap [Moles/Vol] 13.1 mmol/L 6.0-15.0 [facility] Serum or plasma aspartate am inotransferase measurement (enzymatic activity/volume)Ordered By: Peri Tyson on 05-09-2022 AST [Catalytic activity/Vol] 49 U/L High 10-42 U/L [facility] Serum or plasma calcium monique urement (mass/volume)Ordered By: Peri Tyson on 05-09-2022 Calcium [Mass/Vol] 9.5 mg/dL 8.2-10.2 [facility] Serum or plasma chloride janeth surement (moles/volume)Ordered By: Peri Tyson on 05-09-2022 Chloride [Moles/Vol] 98 mmol/L Normal 95-114 mmol/L [facility] Serum or plasma glucose monique urement (mass/volume)Ordered By: Peri Tyson on 05-09-2022 Glucose [Mass/Vol] 186 mg/dL High 70-100 mg/dL [facility] Comment on above: ADA recommended refe rence rangeRandom Glucose Reference Range is dependent on time and content of last meal. Glucose of more than 200 mg/dL in a nonstressed, ambulatory subject supports the diagnosis of Diabetes Mellitus. Serum or plasma high density lipoprotein (HDL) cholesterol measurementOrdered By: Peri Tyson on 05-09-2022 Cholesterol in HDL [Mass/Vol] 45 mg/dL Normal 35-85 mg/dL [facility] Comment on above: HDL CHOL ATP-III CLA SSIFICATION Cardiovascular RiskHDL > or equal to 60 mg/dL LOWHDL < 40 mg/dL HIGH Serum or plasma potassium me asurement (moles/volume)Ordered By: Peri Tyson on 05-09-2022 Potassium [Moles/Vol] 4.0 mmol/L 3.5-5.1 [facility] Serum or plasma sodium measu rement (moles/volume)Ordered By: Peri Tyson on 05-09-2022 Sodium [Moles/Vol] 138 mmol/L Normal 136-146 mmol/L [facility] Serum or plasma total biliru bin measurement (mass/volume)Ordered By: Peri Tyson on 05-09-2022 Bilirubin [Mass/Vol] 0.4 mg/dL 0.3-1.2 [facility] Serum or plasma total carbon dioxide measurement (moles/volume)Ordered By: Peri Tyson on 05-09-2022 CO2 [Moles/Vol] 30.9 mmol/L 22.0-30.0 [facility] Serum or plasma total choles terol/high density lipoprotein (HDL) cholesterol mass ratOrdered By: Peri Tyson on 05-09-2022 Cholesterol.total/Shahla sterol in HDL [Mass ratio] 3.3 {ratio} <5.0 [facility] Serum or plasma urea nitroge n measurement (mass/volume)Ordered By: Peri Tyson on 05-09-2022 Urea nitrogen [Mass/Vol] 11 mg/dL Normal 9-23 mg/dL [facility] TSH DL <= 0.005 mIU/L QnOrde red By: Peri Tyson on 05-09-2022 TSH Qn 2.51 m[IU]/L 0.45-5.33 [facility] Thyroid Stim Hormone w/Rflxo n 05-09-2022 Thyroid Stim Hormone w/Rflx 2.51 u[iU]/mL Normal 0.45-5.33 u[iU]/mL [employer] Other Triglyceride [Mass/volume] i n Serum or PlasmaOrdered By: Peri Tyson on 05-09-2022 Triglyceride [Mass/Vol] 96 mg/dL 35-149 [facility] Comment on above: TRIG ATP III [...] 20 mg/L (U) [Mass/Vol] 0.6 mg/dL 0.0-1.8 [facility] A1C HEMOGLOBINon 05-07-2022 HbA1c (Bld) [Mass fraction] 7.6 % [employer] Other HbA1c (Bld) [Mass fraction]o n 05-07-2022 A1C HEMOGLOBIN [place] [employer] Other Albumin [Mass/volume] in Ser um or PlasmaOrdered By: Roxane Bills on 04-17-2022 Albumin [Mass/Vol] 3.2 g/dL 3.2-5.5 [facility] Albumin [Mass/Vol] 3.4 g/dL 2.9-4.4 [facility] Basophils Auto (Bld) [#/Vol] Ordered By: Roxane Bills on 04-17-2022 Basophils (Bld) [#/Vol] 0.1 10*3/uL 0.0-0.2 [facility] Basophils/100 WBC Auto (Bld) Ordered By: Roxane Bills on 04-17-2022 Basophils/100 WBC (Bld) 0.5 % . F [facility] CT biopsyOrdered By: Roxane Garibay se on 04-17-2022 Transferrin [Mass/Vol] 247 mg/dL 180-380 [facility] Creatinine and Glomerular fi ltration rate.predicted panel (S/P/Bld)Ordered By: Roxane Bills on 04-17-2022 Creatinine [Mass/Vol] 1.26 mg/dL 0.44-1.03 [facility] Eosinophils Auto (Bld) [#/Vo l]Ordered By: Roxane Bills on 04-17-2022 Eosinophils (Bld) [#/Vol] 0.6 10*3/uL 0.0-0.45 [facility] Eosinophils/100 WBC Auto (Bl d)Ordered By: Roxane Bills on 04-17-2022 Eosinophils/100 WBC (Bld) 5.9 % . [facility] Erythrocyte distribution wid th Auto (RBC) [Ratio]Ordered By: Roxane Bills on 04-17-2022 Erythrocyte distribution width (RBC) [Ratio] 15.7 % 11.9-15.3 [facility] Estimated glomerular filtrat ion rate (GFR) non- AmericanOrdered By: Roxane Bills on 04-17-2022 GFR/1.73 sq M.predicted among non-blacks MDRD (S/P/Bld) [Vol rate/Area] 43 mL/Min [facility] Ferritin [Mass/volume] in Se rum or PlasmaOrdered By: Roxane Bills on 04-17-2022 Ferritin [Mass/Vol] 72.6 ng/mL 11-306.8 [facility] Globulin Calc (S) [Mass/Vol] Ordered By: Roxane Bills on 04-17-2022 Globulin (S) [Mass/Vol] 3.8 g/dL [facility] Hematocrit Auto (Bld) [Volum e fraction]Ordered By: Roxane Bills on 04-17-2022 Hematocrit (Bld) [Volume fraction] 35.4 % 34.0-46.4 [facility] Hemoglobin [Mass/volume] in BloodOrdered By: Roxane Bills on 04-17-2022 Hemoglobin (Bld) [Mass/Vol] 11.2 g/dL 11.8-15.4 [facility] IgA [Mass/volume] in Serum o r PlasmaOrdered By: Roxane Bills on 04-17-2022 IgA [Mass/Vol] 625 mg/dL 87-352 [facility] IgG [Mass/volume] in Serum o r PlasmaOrdered By: Roxane Bills on 04-17-2022 IgG [Mass/Vol] 1443 mg/dL 586-1602 [facility] IgM [Mass/volume] in Serum o r PlasmaOrdered By: Roxane Bills on 04-17-2022 IgM [Mass/Vol] 98 mg/dL 26-217 [facility] Comment on above: Performed at: [employer] [address] [id number] Director: Jhoan Rich PhD, Phone: [phone] Immunoglobulin light chains. kappa.free [Mass/volume] in SerumOrdered By: Roxane Bills on 04-17-2022 Immunoglobulin light chains.kappa.free (S) [Mass/Vol] 162.6 mg/L 3.3-19.4 [facility] Immunoglobulin light chains. kappa.free/Immunoglobulin light chains.lambda.free [MassOrdered By: Roxane Bills on 04-17-2022 Immunoglobulin light chains.kappa.free/Immun oglobulin light chains.lambda.free (S) [Mass ratio] 3.65 0.26-1.65 [facility] Comment on above: Performed at: [employer] [address] [id number] Director: Jhoan Rich PhD, Phone: [phone] Immunoglobulin light chains. lambda.free [Mass/volume] in Serum or PlasmaOrdered By: Roxane Bills on 04-17-2022 Immunoglobulin light chains.lambda.free [Mass/Vol] 44.5 mg/L 5.7-26.3 [facility] Iron [Mass/volume] in Serum or PlasmaOrdered By: Roxane Bills on 04-17-2022 Iron [Mass/Vol] 53 ug/dL 40-150 [facility] Iron binding capacity [Mass/ volume] in Serum or PlasmaOrdered By: Roxane Bills on 04-17-2022 Iron binding capacity [Mass/Vol] 346 ug/dL 255-450 [facility] Iron saturation [Mass Fracti on] in Serum or PlasmaOrdered By: Roxane Bills on 04-17-2022 Iron saturation [Mass fraction] 15.3 % 20-50 [facility] Laboratory - Chemistry and C hemistry - challengeOrdered By: Roxane Bills on 04-17-2022 Protein [Mass/Vol] 0.4 g/dL Not Observed [facility] Leukocytes [#/volume] correc shan for nucleated erythrocytes in Blood by Automated counOrdered By: Roxane Bills on 04-17-2022 WBC corrected for nucl RBC Auto (Bld) [#/Vol] 10.8 10*3/uL 3.8-11.6 [facility] Lymphocytes Auto (Bld) [#/Vo l]Ordered By: Roxane Bills on 04-17-2022 Lymphocytes (Bld) [#/Vol] 2.6 10*3/uL 1.00-4.8 [facility] Lymphocytes/100 WBC Auto (Bl d)Ordered By: Roxane Bills on 04-17-2022 Lymphocytes/100 WBC (Bld) 24.5 % . [facility] MCH Auto (RBC) [Entitic mass ]Ordered By: Roxane Bills on 04-17-2022 MCH (RBC) [Entitic mass] 27.9 pg 24.7-34.3 [facility] MCHC Auto (RBC) [Mass/Vol]Or dered By: Roxane Bills on 04-17-2022 MCHC (RBC) [Mass/Vol] 31.6 g/dL 32.0-35.0 [facility] MCV Auto (RBC) [Entitic vol] Ordered By: Roxane Bills on 04-17-2022 MCV (RBC) [Entitic vol] 88.1 fL 80-100 [facility] Monocytes Auto (Bld) [#/Vol] Ordered By: Roxane Bills on 04-17-2022 Monocytes (Bld) [#/Vol] 0.8 10*3/uL 0.0-0.8 [facility] Monocytes/100 WBC Auto (Bld) Ordered By: Roxane Bills on 04-17-2022 Monocytes/100 WBC (Bld) 7.9 % . [facility] Neutrophils Auto (Bld) [#/Vo l]Ordered By: Roxane Bills on 04-17-2022 Neutrophils (Bld) [#/Vol] 6.6 10*3/uL 1.8-7.7 [facility] Neutrophils/100 WBC Auto (Bl d)Ordered By: Roxane Bills on 01-05-2023 Neutrophils/100 WBC (Bld) 61.2 % . [facility] No Panel InformationOrdered By: Roxane Bills on 04-17-2022 Estimated GFR () 52 mL/Min [facility] Comment on above: GFR estimated refere nce range: According to KDOQI guidelines, <60 ml/min/1.73m2 is sufficient to diagnose a patient with chronic kidney disease. Pharmacy Creatinine Clearance (Chem 51.63 [facility] Protein Electrophoresis Note See comment . [facility] Comment on above: Protein electrophore sis scan will follow via computer,mail, or cat sitter delivery.Performed at: [employer] [id number] Director: Jhoan Rich PhD, Phone: [phone] Nucleated erythrocytes [Pres ence] in Blood by Automated countOrdered By: Roxane Bills on 04-17-2022 Nucleated RBC Auto Ql (Bld) 0.2 /100{WBC} 0-0.5 [facility] Platelet mean volume Auto (B ld) [Entitic vol]Ordered By: Roxane Bills on 04-17-2022 Platelet mean volume (Bld) [Entitic vol] 7.6 fL 6.3-10.7 [facility] Platelets Auto (Bld) [#/Vol] Ordered By: Roxane Bills on 04-17-2022 Platelets (Bld) [#/Vol] 273 10*3/uL 150-450 [facility] Protein [Mass/volume] in Ser um or PlasmaOrdered By: Roxane Bills on 04-17-2022 Protein [Mass/Vol] 7.0 g/dL 6.1-7.9 [facility] Protein [Mass/Vol] 7.3 g/dL 6.0-8.5 [facility] RBC Auto (Bld) [#/Vol]Ordere d By: Roxane Bills on 04-17-2022 RBC (Bld) [#/Vol] 4.02 10*6/uL 3.60-5.00 [facility] Serum globulin measurement ( mass/volume)Ordered By: Roxane Bills on 04-17-2022 Globulin (S) [Mass/Vol] 3.9 g/dL 2.2-3.9 [facility] Serum or plasma alanine borden otransferase measurement without P-5'-P (enzymatic activiOrdered By: Roxane Bills on 04-17-2022 ALT No additional P-5'-P [Catalytic activity/Vol] 22 U/L 10-60 [facility] Serum or plasma albumin/glob ulin mass ratioOrdered By: Roxane Bills on 04-17-2022 Albumin/Globulin [Mass ratio] 0.8 {ratio} [facility] Albumin/Globulin [Mass ratio] 0.9 {ratio} 0.7-1.7 [facility] Serum or plasma alkaline mo sphatase measurement (enzymatic activity/volume)Ordered By: Roxane Bills on 04-17-2022 ALP [Catalytic activity/Vol] 121 U/L 32-92 [facility] Serum or plasma alpha 1 glob ulin measurement by electrophoresis (mass/volume)Ordered By: Roxane Bills on 04-17-2022 Alpha 1 globulin Elph [Mass/Vol] 0.3 g/dL 0.0-0.4 [facility] Serum or plasma alpha 2 glob ulin measurement by electrophoresis (mass/volume)Ordered By: Roxane Bills on 04-17-2022 Alpha 2 globulin Elph [Mass/Vol] 0.9 g/dL 0.4-1.0 [facility] Serum or plasma anion gap de terminationOrdered By: Roxane Bills on 04-17-2022 Anion gap [Moles/Vol] 12.8 mmol/L 6.0-15.0 [facility] Serum or plasma aspartate am inotransferase measurement (enzymatic activity/volume)Ordered By: Roxane Bills on 04-17-2022 AST [Catalytic activity/Vol] 23 U/L 10-42 [facility] Serum or plasma beta globuli n measurement by electrophoresis (mass/volume)Ordered By: Roxane Bills on 04-17-2022 Beta globulin Elph [Mass/Vol] 1.4 g/dL 0.7-1.3 [facility] Serum or plasma calcium monique urement (mass/volume)Ordered By: Roxane Bills on 04-17-2022 Calcium [Mass/Vol] 9.1 mg/dL 8.2-10.2 [facility] Serum or plasma chloride janeth surement (moles/volume)Ordered By: Roxane Bills on 04-17-2022 Chloride [Moles/Vol] 98 mmol/L 95-114 [facility] Serum or plasma gamma globul in measurement by electrophoresis (mass/volume)Ordered By: Roxane Bills on 04-17-2022 Gamma globulin Elph [Mass/Vol] 1.3 g/dL 0.4-1.8 [facility] Serum or plasma glucose monique urement (mass/volume)Ordered By: Roxane Bills on 04-17-2022 Glucose [Mass/Vol] 269 mg/dL 70-100 [facility] Comment on above: ADA recommended refe rence rangeRandom Glucose Reference Range is dependent on time and content of last meal. Glucose of more than 200 mg/dL in a nonstressed, ambulatory subject supports the diagnosis of Diabetes Mellitus. Serum or plasma potassium me asurement (moles/volume)Ordered By: Roxane Bills on 04-17-2022 Potassium [Moles/Vol] 3.5 mmol/L 3.5-5.1 [facility] Serum or plasma sodium measu rement (moles/volume)Ordered By: Roxane Bills on 04-17-2022 Sodium [Moles/Vol] 138 mmol/L 136-146 [facility] Serum or plasma total biliru bin measurement (mass/volume)Ordered By: Roxane Bills on 04-17-2022 Bilirubin [Mass/Vol] 0.3 mg/dL 0.3-1.2 [facility] Serum or plasma total carbon dioxide measurement (moles/volume)Ordered By: Roxane Bills on 04-17-2022 CO2 [Moles/Vol] 30.7 mmol/L 22.0-30.0 [facility] Serum or plasma urea nitroge n measurement (mass/volume)Ordered By: Roxane Bills on 04-17-2022 Urea nitrogen [Mass/Vol] 17 mg/dL 9-23 [facility] WBC Auto (Bld) [#/Vol]Ordere d By: Roxane Bills on 04-17-2022 WBC (Bld) [#/Vol] 10.8 10*3/uL 3.8-11.6 [facility] Urine culture routineOrdered By: Peri Tyson on 02-05-2022 Bacteria identified Cx Nom (U) Strep. agalactiae Grp B [facility] A1C HEMOGLOBINon 02-03-2022 HbA1c (Bld) [Mass fraction] 7.0 % [employer] Other Urinalysis - AUTOMATEDon Appearance (U) cloudy [employer] Other Bilirubin Ql (U) Negative [employer] Other Color (U) yellow [employer] Other Glucose Ql (U) 500 [employer] Other Hemoglobin Ql (U) Negative [employer] Other Ketones Ql (U) Negative [employer] Other Leukocyte esterase Test strip Ql (U) small [employer] Other Nitrite Ql (U) Negative [employer] Other pH (U) 5.5 [pH] [employer] Other Protein Ql (U) Negative [employer] Other Specific gravity (U) [Rel density] 1.010 [employer] Other Urobilinogen (U) [Mass/Vol] 0.2 mg/dL [employer] Other Urinalysis - AUTOMATED No rt [employer] Other Urine culture routineOrdered By: Peri Tyson on 02-03-2022 Bacteria identified Cx Nom (U) Strep. agalactiae Grp B [facility] Urine culture routineOrdered By: Peri Tyson on 12-25-2021 Bacteria identified Cx Nom (U) Strep. agalactiae Grp B [facility] Drugs identified in UrineOrd ered By: Peri Tyson on 12-23-2021 Drugs identified Nom (U) Final . [facility] Comment on above: ======TOXASSURE COMP DRUG [...] clinical consultation, please call . Performed at: [facility] [id number] [place] [address] [id number] Director: Tomasa Alegria [facility], Phone: [phone] Urinalysis - AUTOMATEDon Appearance (U) clear [employer] Other Bilirubin Ql (U) Negative [employer] Other Color (U) yellow [employer] Other Glucose Ql (U) 1000 [employer] Other Hemoglobin Ql (U) Negative [employer] Other Ketones Ql (U) Negative [employer] Other Leukocyte esterase Test strip Ql (U) trace [employer] Other Nitrite Ql (U) Negative [employer] Other pH (U) 7.0 [pH] [employer] Other Protein Ql (U) Negative [employer] Other Specific gravity (U) [Rel density] 1.010 [employer] Other Urobilinogen (U) [Mass/Vol] 0.2 mg/dL [employer] Other Urinalysis - AUTOMATED No rt[employer]min Other CT biopsyOrdered By: Roxane Garibay se on 10-23-2021 Transferrin [Mass/Vol] 290 mg/dL 180-380 [facility] Ferritin [Mass/volume] in Se rum or PlasmaOrdered By: Roxane Bills on 10-23-2021 Ferritin [Mass/Vol] 76.6 ng/mL 11-306.8 [facility] Iron [Mass/volume] in Serum or PlasmaOrdered By: Roxane Bills on 10-23-2021 Iron [Mass/Vol] 64 ug/dL 40-150 [facility] Iron binding capacity [Mass/ volume] in Serum or PlasmaOrdered By: Roxane Bills on 10-23-2021 Iron binding capacity [Mass/Vol] 406 ug/dL 255-450 [facility] Iron saturation [Mass Fracti on] in Serum or PlasmaOrdered By: Roxane Bills on 10-23-2021 Iron saturation [Mass fraction] 15.0 % 20-50 [facility] A1C HEMOGLOBINon 10-21-2021 HbA1c (Bld) [Mass fraction] 7.2 % [employer] Other Basic Metabolic PanelOrdered By: Laureen Moreno on 10-21-2021 Chloride [Moles/Vol] 100 mmol/L 95-114 [facility] Glucose [Mass/Vol] 268 mg/dL 70-100 [facility] Comment on above: ADA recommended refe rence range Random Glucose Reference Range is dependent on time and content of last meal. Glucose of more than 200 mg/dL in a nonstressed, ambulatory subject supports the diagnosis of Diabetes Mellitus. Sodium [Moles/Vol] 139 mmol/L 136-146 [facility] Urea nitrogen [Mass/Vol] 18 mg/dL 9-23 [facility] Basic Metabolic Panelon 10-11 Calcium [Mass/Vol] 9.8448121 mg/dL Normal 8.2-10 .2 mg/dL [employer] Other CO2 [Moles/Vol] 29.63205535 mmol/L Normal 22.0-3 0.0 mmol/L [employer] Other Creatinine [Mass/Vol] 1.61904883 mg/dL High 0. 44-1.03 mg/dL [employer] Other Potassium [Moles/Vol] 4.49935623 mmol/L Normal 3 .5-5.1 mmol/L [facility] [employer] Other Basic Metabolic Panel 33 [facility] [employer] Other Creatinine and Glomerular fi ltration rate.predicted panel (S/P/Bld)Ordered By: Laureen Moreno on 10-21-2021 Creatinine [Mass/Vol] 1.57 mg/dL 0.44-1.03 [facility] Estimated glomerular filtrat ion rate (GFR) non- AmericanOrdered By: Laureen Moreno on 10-21-2021 GFR/1.73 sq M.predicted among non-blacks MDRD (S/P/Bld) [Vol rate/Area] 33 mL/Min [facility] HbA1c (Bld) [Mass fraction]o n 10-21-2021 A1C HEMOGLOBIN [facility] [employer] Other No Panel InformationOrdered By: Laureen Moreno on 10-21-2021 Estimated GFR () 40 mL/Min [facility] Comment on above: GFR estimated refere nce range: According to KDOQI guidelines, <60 ml/min/1.73m2 is sufficient to diagnose a patient with chronic kidney disease. Pharmacy Creatinine Clearance (Chem N/A [facility] Serum or plasma calcium monique urement (mass/volume)Ordered By: Laureen Moreno on 10-21-2021 Calcium [Mass/Vol] 9.6 mg/dL 8.2-10.2 [facility] Serum or plasma potassium me asurement (moles/volume)Ordered By: Laureen Moreno on 10-21-2021 Potassium [Moles/Vol] 4.7 mmol/L 3.5-5.1 [facility] Serum or plasma total carbon dioxide measurement (moles/volume)Ordered By: Laureen Moreno on 10-21-2021 CO2 [Moles/Vol] 29.0 mmol/L 22.0-30.0 [facility] Activated partial thrombopla stin time (aPTT) in platelet poor plasma by coagulation aOrdered By: Roxane Bills on 09-26-2021 aPTT Coag (PPP) [Time] 33.0 s 25.1-36.5 [facility] Basophils Auto (Bld) [#/Vol] Ordered By: Roxane Bills on 09-26-2021 Basophils (Bld) [#/Vol] 0.1 10*3/uL 0.0-0.2 [facility] Basophils/100 WBC Auto (Bld) Ordered By: Roxane Bills on 09-26-2021 Basophils/100 WBC (Bld) 0.5 % . [facility] Blood hemoglobin measurement (mass/volume)Ordered By: Roxane Bills on 09-26-2021 Hemoglobin (Bld) [Mass/Vol] 11.4 g/dL 11.8-15.4 [facility] Blood leukocytes automated c ount (number/volume)Ordered By: Roxane Bills on 09-26-2021 WBC (Bld) [#/Vol] 11.1 10*3/uL 4.5-11.0 [facility] Eosinophils Auto (Bld) [#/Vo l]Ordered By: Roxane Bills on 09-26-2021 Eosinophils (Bld) [#/Vol] 0.8 10*3/uL 0.0-0.45 [facility] Eosinophils/100 WBC Auto (Bl d)Ordered By: Roxane Bills on 09-26-2021 Eosinophils/100 WBC (Bld) 7.7 % . [facility] Erythrocyte distribution wid th Auto (RBC) [Ratio]Ordered By: Roxane Bills on 09-26-2021 Erythrocyte distribution width (RBC) [Ratio] 14.5 % 11.9-15.3 [facility] Hematocrit Auto (Bld) [Volum e fraction]Ordered By: Roxane Bills on 09-26-2021 Hematocrit (Bld) [Volume fraction] 35.3 % 34.0-46.4 [facility] Laboratory - CoagulationOrde red By: Roxane Bills on 09-26-2021 PT Coag (PPP) [Time] 13.9 s 9.0-12.9 [facility] Laboratory - Hematology and Cell countsOrdered By: Roxane Bills on 09-26-2021 Nucleated RBC/100 WBC (Bld) [Ratio] 0.1 % 0-0.5 [facility] Lymphocytes Auto (Bld) [#/Vo l]Ordered By: Roxane Bills on 09-26-2021 Lymphocytes (Bld) [#/Vol] 2.4 10*3/uL 1.00-4.8 [facility] Lymphocytes/100 WBC Auto (Bl d)Ordered By: Roxane Bills on 09-26-2021 Lymphocytes/100 WBC (Bld) 21.6 % . [facility] MCH Auto (RBC) [Entitic mass ]Ordered By: Roxane Bills on 09-26-2021 MCH (RBC) [Entitic mass] 28.3 pg 24.7-34.3 [facility] MCHC Auto (RBC) [Mass/Vol]Or dered By: Roxane Bills on 09-26-2021 MCHC (RBC) [Mass/Vol] 32.1 g/dL 32.0-35.0 [facility] MCV Auto (RBC) [Entitic vol] Ordered By: Roxane Bills on 09-26-2021 MCV (RBC) [Entitic vol] 88.0 fL 80-100 [facility] Monocytes Auto (Bld) [#/Vol] Ordered By: Roxane Bills on 09-26-2021 Monocytes (Bld) [#/Vol] 0.9 10*3/uL 0.0-0.8 [facility] Monocytes/100 WBC Auto (Bld) Ordered By: Roxane Bills on 09-26-2021 Monocytes/100 WBC (Bld) 7.8 % . [facility] Neutrophils Auto (Bld) [#/Vo l]Ordered By: Roxane Bills on 09-26-2021 Neutrophils (Bld) [#/Vol] 6.9 10*3/uL 1.8-7.7 [facility] Neutrophils/100 WBC Auto (Bl d)Ordered By: Roxane Bills on 09-26-2021 Neutrophils/100 WBC (Bld) 62.4 % . [facility] Platelet mean volume Auto (B ld) [Entitic vol]Ordered By: Roxane Bills on 06-16-2022 Platelet mean volume (Bld) [Entitic vol] 7.5 fL 6.3-10.7 [facility] Platelet poor plasma interna tional normalized ratio (INR) by coagulation assay (relatOrdered By: Roxane Bills on 09-26-2021 INR Coag (PPP) [Relative time] 1.2 {INR} [facility] Comment on above: INR Therapeutic Rang [...] 09-26-2021 Platelets (Bld) [#/Vol] 302 10*3/uL 150-450 [facility] RBC Auto (Bld) [#/Vol]Ordere d By: Roxane Bills on 09-26-2021 RBC (Bld) [#/Vol] 4.01 10*6/uL 3.60-5.00 [facility] Albumin/Protein.total in 24 hour Urine by ElectrophoresisOrdered By: Roxane Bills on 08-16-2021 Albumin Elph (24H U) [Mass fraction] 27.8 % . [facility] Creatinine [Mass/volume] in UrineOrdered By: Roxane Bills on 08-16-2021 Creatinine (U) [Mass/Vol] 35.9 mg/dL [facility] Comment on above: No reference range e stablished Gamma globulin/Protein.total in 24 hour Urine by ElectrophoresisOrdered By: Roxane Bills on 08-16-2021 Gamma globulin Elph (24H U) [Mass fraction] 24.3 % . [facility] Immunofixation for UrineOrde red By: Roxane Bills on 08-16-2021 Interpretation Immunofixation (U) [Interp] See comment . [facility] Comment on above: No monoclonality det ected. Performed at: [address] [id number] Supervisor [place]: Jhoan Rich PhD, Phone: [phone] No monoclonality det ected.Performed at: [address] [id number] Director: Jhoan Rich PhD, Phone: [phone] Immunoglobulin light chains. kappa.free [Mass/volume] in SerumOrdered By: Roxane Bills on 08-16-2021 Immunoglobulin light chains.kappa.free (S) [Mass/Vol] 73.6 mg/L 3.3-19.4 [facility] Immunoglobulin light chains. kappa.free/Immunoglobulin light chains.lambda.free [MassOrdered By: Roxane Bills on 08-16-2021 Immunoglobulin light chains.kappa.free/Immun oglobulin light chains.lambda.free (S) [Mass ratio] 2.52 0.26-1.65 [facility] Comment on above: Performed at: [address] [id number] Supervisor [place]: Jhoan Rich PhD, Phone: [phone] Immunoglobulin light chains. lambda.free [Mass/volume] in Serum or PlasmaOrdered By: Roxane Bills on 08-16-2021 Immunoglobulin light chains.lambda.free [Mass/Vol] 29.2 mg/L 5.7-26.3 [facility] No Panel InformationOrdered By: Roxane Bills on 08-16-2021 Urine Random Prot Electrophor Note See comment . [facility] Comment on above: Protein electrophore sis scan will follow via computer, mail, or cat sitter delivery. Protein electrophoresis scan will follow via computer, mail, or cat sitter delivery. Performed at: [facility] [employer] [id number] Supervisor [place]: Jhoan Rich PhD, Phone: [phone] --- 08/20/21 1409 --- Please Note: previously reported as: Protein electrophoresis scan will follow via computer, mail, or cat sitter delivery. Protein electrophore sis scan will follow via computer,mail, or cat sitter delivery. Protein electrophoresis scan will follow via computer,mail, or cat sitter delivery.Performed at: [address] [id number] Director: Jhoan Rich PhD, Phone: [phone] --- 08/20/21 9100 ---Please Note: previously reported as: Protein electrophoresis scan will follow via computer,mail, or cat sitter delivery. Protein [Mass/volume] in Uri neOrdered By: Roxane Bills on 08-16-2021 Protein (U) [Mass/Vol] 4.8 mg/dL Not Estab. [facility] Protein.monoclonal/Protein.t otal in 24 hour Urine by ElectrophoresisOrdered By: Roxane Bills on 08-16-2021 Protein.monoclonal Elph (24H U) [Mass fraction] Not observed % Not Observed [facility] Serum or plasma wegb-2-nppez globulin measurement (mass/volume)Ordered By: Roxane Bills on 08-16-2021 Vhyd-4-Mxopkbdwvmepi [Mass/Vol] 4.9 ug/mL 0.6-2.4 [facility] Comment on above: Siemens Immulite 200 0 Immunochemiluminometric assay (ICMA) Values obtained with different assay methods or kits cannot be used interchangeably. Results cannot be interpreted as absolute evidence of the presence or absence of malignant disease. Performed at: [facility] [id number] Supervisor [place]: Betty Bah MD, Phone: [phone] Siemens Immulite 200 0 Immunochemiluminometric assay (ICMA)Values obtained with different assay methods or kits cannotbe used interchangeably. Results cannot be interpreted asabsolute evidence of the presence or absence of malignantdisease.Performed at: [facility] [id number] Director: Betty Bah MD, Phone: [phone] Urine alpha 1 globulin/total protein by electrophoresisOrdered By: Roxane Bills on 08-16-2021 Alpha 1 globulin Elph (U) [Mass fraction] 3.9 % . [facility] Urine alpha 2 globulin/total protein ratio by electrophoresisOrdered By: Roxane Bills on 08-16-2021 Alpha 2 globulin Elph (U) [Mass fraction] 11.3 % . [facility] Urine beta globulin measurem ent by electrophoresis (mass/volume)Ordered By: Roxane Bills on 08-16-2021 Beta globulin Elph (U) [Mass/Vol] 32.8 % . [facility] A1C HEMOGLOBINon 05-23-2021 HbA1c (Bld) [Mass fraction] 6.7 % [employer] Other HbA1c (Bld) [Mass fraction]o n 05-23-2021 A1C HEMOGLOBIN [place] [employer] Other Thyroid Stim Hormone w/Rflxo n 04-02-2021 Thyroid Stim Hormone w/Rflx 3.31 0.45-5.33 [place] [employer] Other Vital Signs Date Time Vital Sign Value Performing Clinician Lola jenkins 05-27-2023 09:16-0500 Body height 152.4 cm DO Christopher Germain Work Phone: [facility] 05-27-2023 09:16-0500 Body mass index (BMI) [Ratio] 48.8 kg/m2 DO Christopher Germain Work Phone: [facility] 05-27-2023 09:16-0500 Body temperature 96.4 [degF] DO Christopher Germain Work Phone: [facility] 05-27-2023 09:16-0500 Body weight 113.39 kg DO Christopher Germain Work Phone: [facility] 05-27-2023 09:16-0500 Diastolic blood pressure 70 mm[Hg] DO Christopher Germain Work Phone: [facility] 05-27-2023 09:16-0500 Heart rate 74 /min DO Christopher Germain Work Phone: [facility] 05-27-2023 09:16-0500 SaO2% (BldA) [Mass fraction] 98 % DO Christopher Germain Work Phone: [facility] 05-27-2023 09:16-0500 Systolic blood pressure 124 mm[Hg] DO Christopher Germain Work Phone: [facility] 05-12-2023 08:28-0500 Body height 152.4 cm DO Christopher Germain Work Phone: [facility] 05-12-2023 08:28-0500 Body mass index (BMI) [Ratio] 48.8 kg/m2 DO Christopher Germain Work Phone: [facility] 05-12-2023 08:28-0500 Body weight 113.39 kg DO Christopher Germain Work Phone: [facility] 05-12-2023 08:17-0500 Body temperature 97.3 [degF] DO Peri Tyson Work Phone: [facility] 05-12-2023 08:17-0500 Diastolic blood pressure 85 mm[Hg] DO Peri Tyson Work Phone: [facility] 05-12-2023 08:17-0500 Heart rate 114 /min DO Peri Tyson Work Phone: [facility] 05-12-2023 08:17-0500 Respiratory rate 18 /min DO Peri Tyson Work Phone: [facility] 05-12-2023 08:17-0500 Systolic blood pressure 189 mm[Hg] DO Peri Tyson Work Phone: [facility] 04-28-2023 09:09-0500 Body height 152.4 cm DO Peri Tyson Work Phone: [facility] 04-28-2023 09:09-0500 Body mass index (BMI) [Ratio] 48.8 kg/m2 DO Peri Tyson Work Phone: [facility] 04-28-2023 09:09-0500 Body weight 113.39 kg DO Peri Tyson Work Phone: [facility] 04-28-2023 08:50-0500 Body temperature 97 [degF] DO Peri Tyson Work Phone: [facility] 04-28-2023 08:50-0500 Diastolic blood pressure 82 mm[Hg] DO Peri Tyson Work Phone: [facility] 04-28-2023 08:50-0500 Heart rate 106 /min DO Peri Tyson Work Phone: [facility] 04-28-2023 08:50-0500 Inhaled oxygen flow rate 4 L/min DO Peri Tyson Work Phone: [facility] 04-28-2023 08:50-0500 Respiratory rate 20 /min DO Peri Tyson Work Phone: [facility] 04-28-2023 08:50-0500 Systolic blood pressure 138 mm[Hg] DO Peri Tyson Work Phone: [facility] 03-04-2023 13:28-0500 Body temperature 97.6 [degF] DO Peri Tyson Work Phone: [facility] 03-04-2023 13:28-0500 Body weight 110.22 kg DO Peri Tyson Work Phone: [facility] 03-04-2023 13:28-0500 Diastolic blood pressure 89 mm[Hg] DO Peri Tyson Work Phone: [facility] 03-04-2023 13:28-0500 Heart rate 87 /min DO Peri Tyson Work Phone: [facility] 03-04-2023 13:28-0500 Inhaled oxygen flow rate 4 L/min DO Peri Tyson Work Phone: [facility] 03-04-2023 13:28-0500 Respiratory rate 16 /min DO Peri Tyson Work Phone: [facility] 03-04-2023 13:28-0500 SaO2% (BldA) [Mass fraction] 97 % DO Peri Tyson Work Phone: [facility] 03-04-2023 13:28-0500 Systolic blood pressure 172 mm[Hg] DO Peri Tyson Work Phone: [facility] 02-12-2023 10:15-0400 Diastolic blood pressure 88 mm[Hg] DO Peri Tyson Work Phone: [facility] 02-12-2023 10:15-0400 Heart rate 77 /min DO Peri Tyson Work Phone: [facility] 02-12-2023 10:15-0400 Inhaled oxygen flow rate 4 L/min DO Peri Tyson Work Phone: [facility] 02-12-2023 10:15-0400 Respiratory rate 18 /min DO Peri Tyson Work Phone: [facility] 02-12-2023 10:15-0400 SaO2% (BldA) [Mass fraction] 97 % DO Peri Tyson Work Phone: [facility] 02-12-2023 10:15-0400 Systolic blood pressure 141 mm[Hg] DO Peir Tyson Work Phone: [facility] 02-12-2023 08:15-0400 Body height 152.4 cm DO Peri Tyson Work Phone: [facility] 02-12-2023 08:15-0400 Body weight 108.86 kg DO Peri Tyson Work Phone: [facility] 02-06-2023 09:00-0400 Body height 152.4 cm Peri Nymirum Other [employer] Other 02-06-2023 09:00-0400 Body mass index (BMI) [Ratio] 48.43 kg/m2 Peri Tyson Other [employer] Other 02-06-2023 09:00-0400 Body weight 112.49 kg Peri Tyson Other [employer] Other 02-06-2023 09:00-0400 Diastolic blood pressure 70 mm[Hg] Peri Tyson Other [employer] Other 02-06-2023 09:00-0400 Respiratory rate 20 /min Peri Tyson Other [employer] Other 02-06-2023 09:00-0400 SaO2% (BldA) [Mass fraction] 99 % Peri Tyson Other [employer] Other 02-06-2023 09:00-0400 Systolic blood pressure 138 mm[Hg] Peri Tyson Other [employer] Other 01-29-2023 08:55-0400 Body temperature 97.5 [degF] DO Peri Tyson Work Phone: [facility] 01-29-2023 08:55-0400 Body weight 112.94 kg DO Peri Tyson Work Phone: [facility] 01-29-2023 08:55-0400 Diastolic blood pressure 82 mm[Hg] DO Peri Tyson Work Phone: [facility] 01-29-2023 08:55-0400 Heart rate 82 /min DO Peri Tyson Work Phone: [facility] 01-29-2023 08:55-0400 Respiratory rate 16 /min DO Peri Tyson Work Phone: [facility] 01-29-2023 08:55-0400 SaO2% (BldA) [Mass fraction] 98 % DO Peri Tyson Work Phone: [facility] 01-29-2023 08:55-0400 Systolic blood pressure 132 mm[Hg] DO Peri Tyson Work Phone: [facility] 01-12-2023 08:00-0400 Body height 152.4 cm Patsy Blades Other [employer] Other 01-12-2023 08:00-0400 Body mass index (BMI) [Ratio] 47.84 kg/m2 Patsy Blades Other [employer] Other 01-12-2023 08:00-0400 Body weight 111.13 kg Patsy Blades Other [employer] Other 01-12-2023 08:00-0400 Diastolic blood pressure 102 mm[Hg] Patsy Blades Other [employer] Other 01-12-2023 08:00-0400 Systolic blood pressure 162 mm[Hg] Patsy Blades Other [employer] Other 12-18-2022 13:38-0400 Diastolic blood pressure 71 mm[Hg] DO Peri Tyson Work Phone: [facility] 12-18-2022 13:38-0400 Heart rate 77 /min DO Peri Tyson Work Phone: [facility] 12-18-2022 13:38-0400 Inhaled oxygen flow rate 4 L/min DO Peri Tyson Work Phone: [facility] 12-18-2022 13:38-0400 Respiratory rate 16 /min DO Peri Tyson Work Phone: [facility] 12-18-2022 13:38-0400 SaO2% (BldA) [Mass fraction] 97 % DO Peri Marbella Work Phone: [facility] 12-18-2022 13:38-0400 Systolic blood pressure 139 mm[Hg] DO Peri Tyson Work Phone: [facility] 12-18-2022 11:03-0400 Body height 152.4 cm DO Peri Marbella Work Phone: [facility] 12-18-2022 11:03-0400 Body mass index (BMI) [Ratio] 44.9 kg/m2 DO Peri Marbella Work Phone: [facility] 12-18-2022 11:03-0400 Body weight 104.32 kg DO Peri Marbella Work Phone: [facility] 12-18-2022 09:34-0400 Body temperature 98.1 [degF] DO Peri Marbella Work Phone: [facility] 09-16-2022 11:30-0400 Body height 152.4 cm Periluis Tyson Other [employer] Other 09-16-2022 11:30-0400 Body mass index (BMI) [Ratio] 45.19 kg/m2 Peri Tyson Other [employer] Other 09-16-2022 11:30-0400 Body weight 104.96 kg Periluis Tyson Other [employer] Other 09-16-2022 11:30-0400 Diastolic blood pressure 92 mm[Hg] Peri Tyson Other [employer] Other 09-16-2022 11:30-0400 Respiratory rate 20 /min Peri Tyson Other [employer] Other 09-16-2022 11:30-0400 SaO2% (BldA) [Mass fraction] 99 % Peri Marbella Other [employer] Other 09-16-2022 11:30-0400 Systolic blood pressure 146 mm[Hg] Peri Tyson Other [employer] Other 07-30-2022 15:04-0400 Body temperature 97.8 [degF] DO Peri Tyson Work Phone: [facility] 07-30-2022 15:04-0400 Body weight 103.41 kg DO Peri Tyson Work Phone: [facility] 07-30-2022 15:04-0400 Diastolic blood pressure 77 mm[Hg] DO Peri Tyson Work Phone: [facility] 07-30-2022 15:04-0400 Heart rate 82 /min DO Peri Tyson Work Phone: [facility] 07-30-2022 15:04-0400 Respiratory rate 16 /min DO Peri Tyson Work Phone: [facility] 07-30-2022 15:04-0400 SaO2% (BldA) [Mass fraction] 97 % DO Peri Tyson Work Phone: [facility] 07-30-2022 15:04-0400 Systolic blood pressure 147 mm[Hg] DO Peri Tyson Work Phone: [facility] 07-07-2022 10:00-0400 Body height 152.4 cm Lulú Ruth Other [employer] Other 07-07-2022 10:00-0400 Body mass index (BMI) [Ratio] 44.33 kg/m2 Lulú Ruth Other [employer] Other 07-07-2022 10:00-0400 Body temperature 97.8 [degF] Lulú Ruth Other [employer] Other 07-07-2022 10:00-0400 Body weight 102.97 kg Lulú Ruth Other [employer] Other 07-07-2022 10:00-0400 Diastolic blood pressure 62 mm[Hg] Lulú Ruth Other [employer] Other 07-07-2022 10:00-0400 SaO2% (BldA) [Mass fraction] 98 % Lulú Ruth Other [employer] Other 07-07-2022 10:00-0400 Systolic blood pressure 108 mm[Hg] Lulú Ruth Other [employer] Other 05-12-2022 15:11-0500 Diastolic blood pressure 59 mm[Hg] DO Peri Nymirum Work Phone: [facility] 05-12-2022 15:11-0500 Heart rate 65 /min DO Peri Nymirum Work Phone: [facility] 05-12-2022 15:11-0500 Inhaled oxygen flow rate 4 L/min DO Peri Nymirum Work Phone: [facility] 05-12-2022 15:11-0500 Respiratory rate 18 /min DO Peri Nymirum Work Phone: [facility] 05-12-2022 15:11-0500 SaO2% (BldA) [Mass fraction] 98 % DO Peri Nymirum Work Phone: [facility] 05-12-2022 15:11-0500 Systolic blood pressure 120 mm[Hg] DO Periluis Tyson Work Phone: [facility] 05-12-2022 14:20-0500 Body temperature 98 [degF] DO Periluis Tyson Work Phone: [facility] 05-07-2022 11:00-0500 Body height 152.4 cm Periroyce Tyson Other [employer] Other 05-07-2022 11:00-0500 Body mass index (BMI) [Ratio] 45.66 kg/m2 Periroyce Tyson Other [employer] Other 05-07-2022 11:00-0500 Body weight 106.05 kg Peri Tyson Other [employer] Other 05-07-2022 11:00-0500 Diastolic blood pressure 84 mm[Hg] Peri Tyson Other [employer] Other 05-07-2022 11:00-0500 Respiratory rate 20 /min Peri Tyson Other [employer] Other 05-07-2022 11:00-0500 SaO2% (BldA) [Mass fraction] 99 % Peri Tyson Other [employer] Other 05-07-2022 11:00-0500 Systolic blood pressure 136 mm[Hg] Peri Marbella Other [employer] Other 04-23-2022 10:55-0500 Body height 152.4 cm DO Giovanni Moreno Work Phone: [facility] 04-23-2022 10:55-0500 Body weight 106.3 kg DO Giovanni Moreno Work Phone: [facility] 04-23-2022 10:55-0500 Diastolic blood pressure 82 mm[Hg] DO Giovanni Moreno Work Phone: [facility] 04-23-2022 10:55-0500 Heart rate 75 /min DO Giovanni Moreno Work Phone: [facility] 04-23-2022 10:55-0500 Inhaled oxygen flow rate 5 L/min DO Giovanni Moreno Work Phone: [facility] 04-23-2022 10:55-0500 Respiratory rate 20 /min DO Giovanni Moreno Work Phone: [facility] 04-23-2022 10:55-0500 SaO2% (BldA) [Mass fraction] 100 % DO Giovanni Moreno Work Phone: [facility] 04-23-2022 10:55-0500 Systolic blood pressure 145 mm[Hg] DO Giovanni Moreno Work Phone: [facility] 02-03-2022 11:00-0400 Body height 152.4 cm Peri Tyson Other [employer] Other 02-03-2022 11:00-0400 Body mass index (BMI) [Ratio] 46.59 kg/m2 Peri Tyson Other [employer] Other 02-03-2022 11:00-0400 Body weight 108.23 kg Peri Tyson Other [employer] Other 02-03-2022 11:00-0400 Diastolic blood pressure 80 mm[Hg] Peri Tyson Other [employer] Other 02-03-2022 11:00-0400 Respiratory rate 20 /min Peri Tyson Other [employer] Other 02-03-2022 11:00-0400 SaO2% (BldA) [Mass fraction] 99 % Peri Tyson Other [employer] Other 02-03-2022 11:00-0400 Systolic blood pressure 122 mm[Hg] Peri Tyson Other [employer] Other 12-23-2021 14:30-0400 Body height 152.4 cm Peri Tyson Other [employer] Other 12-23-2021 14:30-0400 Body mass index (BMI) [Ratio] 47.28 kg/m2 Peri Tyson Other [employer] Other 12-23-2021 14:30-0400 Body weight 109.82 kg Peri Tyson Other [employer] Other 12-23-2021 14:30-0400 Diastolic blood pressure 61 mm[Hg] Peri Tyson Other [employer] Other 12-23-2021 14:30-0400 Respiratory rate 20 /min Peri Tyson Other [employer] Other 12-23-2021 14:30-0400 SaO2% (BldA) [Mass fraction] 100 % Peri Tyson Other [employer] Other 12-23-2021 14:30-0400 Systolic blood pressure 109 mm[Hg] Peri Tyson Other [employer] [facility] [employer] Other 10-23-2021 13:14-0400 Body temperature 97 [degF] DO Giovanni Moreno Work Phone: [facility] 10-23-2021 13:14-0400 Body weight 110.67 kg DO Giovanni Moreno Work Phone: [facility] 10-23-2021 13:14-0400 Diastolic blood pressure 76 mm[Hg] DO Giovanni Moreno Work Phone: [facility] 10-23-2021 13:14-0400 Heart rate 70 /min DO Giovanni Moreno Work Phone: [facility] 10-23-2021 13:14-0400 Respiratory rate 16 /min DO Giovanni Moreno Work Phone: [facility] 10-23-2021 13:14-0400 SaO2% (BldA) [Mass fraction] 97 % DO Giovanni Moreno Work Phone: [facility] 10-23-2021 13:14-0400 Systolic blood pressure 148 mm[Hg] DO Giovanni Moreno Work Phone: [facility] 10-21-2021 14:45-0400 Body height 152.4 cm Giovanni Moreno Other [employer] Other 10-21-2021 14:45-0400 Body mass index (BMI) [Ratio] 48.08 kg/m2 Giovanni Moreno Other [employer] Other 10-21-2021 14:45-0400 Body weight 111.68 kg Giovanni Moreno Other [employer] Other 10-21-2021 14:45-0400 Diastolic blood pressure 84 mm[Hg] Giovanni Moreno Other [employer] Other 10-21-2021 14:45-0400 Respiratory rate 20 /min Giovanni Moreno Other [employer] Other 10-21-2021 14:45-0400 SaO2% (BldA) [Mass fraction] 99 % Giovanni Moreno Other [employer] Other 10-21-2021 14:45-0400 Systolic blood pressure 158 mm[Hg] Giovanni Moreno Other [employer] Other 09-26-2021 11:50-0400 Diastolic blood pressure 82 mm[Hg] DO Giovanni Moreno Work Phone: [facility] 09-26-2021 11:50-0400 Heart rate 75 /min DO Giovanni Moreno Work Phone: [facility] 09-26-2021 11:50-0400 Inhaled oxygen flow rate 5 L/min DO Giovanni Moreno Work Phone: [facility] 09-26-2021 11:50-0400 Respiratory rate 16 /min DO Giovanni Moreno Work Phone: [facility] 09-26-2021 11:50-0400 SaO2% (BldA) [Mass fraction] 100 % DO Giovanni Moreno Work Phone: [facility] 09-26-2021 11:50-0400 Systolic blood pressure 130 mm[Hg] DO Giovanni Moreno Work Phone: [facility] 09-26-2021 09:07-0400 Body height 152.4 cm DO Giovanni Moreno Work Phone: [facility] 09-26-2021 09:07-0400 Body mass index (BMI) [Ratio] 48.2 kg/m2 DO Giovanni Moreno Work Phone: [facility] 09-26-2021 09:07-0400 Body weight 112.03 kg DO Giovanni Moreno Work Phone: [facility] 08-22-2021 15:00-0400 Body height 152.4 cm Nicko Linda Other [employer] [facility] [employer] Other 08-22-2021 15:00-0400 Body mass index (BMI) [Ratio] 49.21 kg/m2 Nicko Linda Other [employer] Other 08-22-2021 15:00-0400 Body weight 114.31 kg Nicko Linda Other [employer] Other 08-22-2021 15:00-0400 Diastolic blood pressure 80 mm[Hg] Nicko Linda Other [employer] Other 08-22-2021 15:00-0400 SaO2% (BldA) [Mass fraction] 97 % Nicko Doky Other [employer] Other 08-22-2021 15:00-0400 Systolic blood pressure 160 mm[Hg] Nickocollin Mckeon Other [employer] Other 08-16-2021 10:08-0400 Body height 152.4 cm DO Giovanni Moreno Work Phone: [facility] 08-07-2021 10:00-0400 Body height 152.4 cm Giovanni Moreno Other [employer] Other 08-07-2021 10:00-0400 Body mass index (BMI) [Ratio] 50.03 kg/m2 Giovanni Moreno Other [employer] Other 08-07-2021 10:00-0400 Body weight 116.21 kg Giovanni Moreno Other [employer] Other 08-07-2021 10:00-0400 Diastolic blood pressure 86 mm[Hg] Giovanni Moreno Other [employer] Other 08-07-2021 10:00-0400 Respiratory rate 20 /min Giovanni Moreno Other [employer] Other 08-07-2021 10:00-0400 SaO2% (BldA) [Mass fraction] 99 % Giovanni Moreno Other [employer] Other 08-07-2021 10:00-0400 Systolic blood pressure 126 mm[Hg] Giovanni Moreno Other [employer] Other 07-22-2021 10:30-0400 Body height 152.4 cm Giovanni Moreno Other [employer] Other 07-22-2021 10:30-0400 Body mass index (BMI) [Ratio] 49.05 kg/m2 Giovanni Moreno Other [employer] Other 07-22-2021 10:30-0400 Body weight 113.94 kg Giovanni Moreno Other [employer] Other 07-22-2021 10:30-0400 Diastolic blood pressure 81 mm[Hg] Giovanni Moreno Other [employer] Other 07-22-2021 10:30-0400 Respiratory rate 20 /min Giovanni Moreno Other [employer] Other 07-22-2021 10:30-0400 SaO2% (BldA) [Mass fraction] 99 % Giovanni Moreno Other [employer] Other 07-22-2021 10:30-0400 Systolic blood pressure 126 mm[Hg] Giovanni Moreno Other [employer] Other 06-20-2021 10:45-0500 Body height 152.4 cm Giovanni Moreno Other [employer] Other 06-20-2021 10:45-0500 Body mass index (BMI) [Ratio] 48.43 kg/m2 Giovanni Moreno Other [employer] Other 06-20-2021 10:45-0500 Body weight 112.49 kg Giovanni Moreno Other [employer] Other 06-20-2021 10:45-0500 Diastolic blood pressure 92 mm[Hg] Giovanni Moreno Other [employer] Other 06-20-2021 10:45-0500 Respiratory rate 20 /min Giovanni Moreno Other [employer] Other 06-20-2021 10:45-0500 SaO2% (BldA) [Mass fraction] 99 % Giovanni Moreno Other [employer] Other 06-20-2021 10:45-0500 Systolic blood pressure 136 mm[Hg] Giovanni Moreno Other [employer] Other 05-23-2021 10:30-0500 Body height 152.4 cm Giovanni Moreno Other [employer] Other 05-23-2021 10:30-0500 Body mass index (BMI) [Ratio] 48.23 kg/m2 Giovanni Moreno Other [employer] Other 05-23-2021 10:30-0500 Body weight 112.04 kg Giovanni Moreno Other [employer] Other 05-23-2021 10:30-0500 Diastolic blood pressure 88 mm[Hg] Giovanni Moreno Other [employer] Other 05-23-2021 10:30-0500 Respiratory rate 20 /min Giovanni Moreno Other [employer] Other 05-23-2021 10:30-0500 SaO2% (BldA) [Mass fraction] 99 % Giovanni Moreno Other [employer] Other 05-23-2021 10:30-0500 Systolic blood pressure 134 mm[Hg] Giovanni Moreno Other [employer] Other 05-01-2021 14:15-0500 Body height 152.4 cm Giovanni Moreno Other [employer] Other 05-01-2021 14:15-0500 Body mass index (BMI) [Ratio] 48.23 kg/m2 Giovanni Moreno Other [employer] Other 05-01-2021 14:15-0500 Body weight 112.04 kg Giovanni Moreno Other [employer] Other 05-01-2021 14:15-0500 Diastolic blood pressure 84 mm[Hg] Giovanni Moreno Other [employer] Other 05-01-2021 14:15-0500 Respiratory rate 20 /min Giovanni Moreno Other [employer] Other 05-01-2021 14:15-0500 SaO2% (BldA) [Mass fraction] 99 % Giovanni Moreno Other [employer] Other 05-01-2021 14:15-0500 Systolic blood pressure 116 mm[Hg] Giovanni Moreno Other [employer] Other 04-02-2021 11:00-0500 Body height 152.4 cm Giovanni Moreno Other [employer] Other 04-02-2021 11:00-0500 Body mass index (BMI) [Ratio] 47.84 kg/m2 Giovanni Moreno Other [employer] Other 04-02-2021 11:00-0500 Body weight 111.13 kg Giovanni Moreno Other [employer] Other 04-02-2021 11:00-0500 Diastolic blood pressure 86 mm[Hg] Giovanni Moreno Other [employer] Other 04-02-2021 11:00-0500 Respiratory rate 20 /min Giovanni Moreno Other [employer] Other 04-02-2021 11:00-0500 SaO2% (BldA) [Mass fraction] 99 % Giovanni Moreno Other [employer] Other 04-02-2021 11:00-0500 Systolic blood pressure 136 mm[Hg] Giovanni Moreno Other [employer] Other 03-04-2021 10:30-0500 Body height 152.4 cm Domenico Whitmore Other [employer] Other 03-04-2021 10:30-0500 Body mass index (BMI) [Ratio] 46.87 kg/m2 Domenico Whitmore Other [employer] Other 03-04-2021 10:30-0500 Body temperature 96.3 [degF] Domenico Whitmore Other [employer] Other 03-04-2021 10:30-0500 Body weight 108.86 kg Domenico Whitmore Other [employer] Other 03-04-2021 10:30-0500 Diastolic blood pressure 60 mm[Hg] Domenico Whitmore Other [employer] Other 03-04-2021 10:30-0500 SaO2% (BldA) [Mass fraction] 99 % Domenico Whitmore Other [employer] Other 03-04-2021 10:30-0500 Systolic blood pressure 90 mm[Hg] Domenico Whitmore Other [employer] Other Encounters Encounter Date Encounter Type Care Provider Facility Start: 07-31-2023 End: 07-31-2023 ambulatory Peri Tyson Facility:[facility] Start: 07-31-2023 End: 07-31-2023 ambulatory DO Peri Tyson Work Phone: [facility] Work Phone: Start: 07-31-2023 End: 07-31-2023 Patient encounter procedure DO Peri Marbella Work Phone: [facility]Lab [facility] Start: 07-29-2023 End: 07-29-2023 ambulatory DO Peri A Tyson Work Phone: [facility] Work Phone: Start: 07-29-2023 End: 07-29-2023 Patient encounter procedure DO Peri Marbella Work Phone: [facility] Vascular Surgery Work Phone: Start: 07-07-2023 End: 07-07-2023 ambulatory MACK PRIDE Not Available Start: 07-01-2023 Non-patient / Non-visit DO Criselda royce Marbella Work Phone: [facility] [employer] Work Phone: Start: 07-01-2023 End: 07-01-2023 ambulatory DO Peri A Marbella Work Phone: [facility] Work Phone: Start: 07-01-2023 End: 07-01-2023 Patient encounter procedure DO Peri Marbella Work Phone: [facility] Vascular Surgery Work Phone: Start: 05-27-2023 End: 05-27-2023 ambulatory DO Brenden Groves Work Phone: [facility] Work Phone: Start: 05-27-2023 End: 05-27-2023 Patient encounter procedure DO Brenden Groves Work Phone: [facility] Vascular Surgery Work Phone: Start: 05-22-2023 End: 05-22-2023 ambulatory Peri Tyson Other [employer] Other Start: 05-22-2023 Telephone encounter Periluis Tyson [facility] [place] Start: 05-21-2023 Refill Mack hawley DPM Work Phone: [facility] Comment on above: 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, with long-term current use of insulin ([facility] Start: 05-12-2023 End: 05-12-2023 ambulatory Peri A Tyson Facility:[facility] Start: 05-12-2023 End: 05-12-2023 ambulatory DO Peri A Tyson Work Phone: [facility] Work Phone: Start: 05-12-2023 End: 05-12-2023 Discharged Recurring DO Peri Marbella Work Phone: [facility] [place] Work Phone: Start: 05-08-2023 End: 05-08-2023 ambulatory Peri Luis Tyson Facility:[facility] Start: 05-08-2023 End: 05-08-2023 ambulatory DO Peri A Marbella Work Phone: [facility] Work Phone: Start: 05-08-2023 End: 05-08-2023 Patient encounter procedure DO Peri Marbella Work Phone: [facility]-Ultrasound [place] Work Phone: Start: 04-28-2023 ambulatory Peri Luis Tyson Facility :[facility] Start: 04-28-2023 Registered Recurring DO Peri Marbella Work Phone: [facility] [place] Work Phone: Start: 04-20-2023 Telephone encounter Peri Tyson [facility] [place] Start: 04-20-2023 End: 04-20-2023 ambulatory MACK PRIDE [employer] Other Start: 04-15-2023 End: 04-15-2023 ambulatory Peri Tyson Other [employer] Other Start: 04-15-2023 Telephone encounter Periroyce Tyson [facility] Start: 03-24-2023 End: 03-24-2023 ambulatory Periluis Tyson Other [employer] Other Start: 03-24-2023 Telephone encounter Periroyce Tyson [facility] Start: 03-19-2023 End: 03-19-2023 ambulatory Peri Tyson Other [employer] Other Start: 03-19-2023 Telephone encounter Periroyce Tyson [facility] Start: 03-09-2023 Registered Recurring DO Rayshawn Groves Work Phone: [facility] Start: 03-04-2023 ambulatory Peri Luis Tyson Facility :[facility] Start: 03-04-2023 End: 03-04-2023 ambulatory DO Peri Tyson Work Phone: [facility] Work Phone: Start: 03-04-2023 End: 03-04-2023 Registered Recurring DO Peri Tyson Work Phone: [facility]-Cancer Center Work Phone: Start: 02-23-2023 End: 02-23-2023 ambulatory Periroyce Tyson Other [employer] Other Start: 02-23-2023 Telephone encounter Peri Tyson [facility] Start: 02-19-2023 End: 02-19-2023 ambulatory Peri Luis Tyson Facility:[facility] Start: 02-19-2023 End: 02-19-2023 Patient encounter procedure DO Peri Tyson Work Phone: [facility]-Ultrasound [place] Work Phone: Start: 02-12-2023 Telephone encounter Peri Tyson [facility] Start: 02-12-2023 End: 02-12-2023 ambulatory Peri Smith Marbella [employer] Other Start: 02-12-2023 End: 02-12-2023 Admission to same day surgery center DO Peri Tyson Work Phone: [facility]-CT Scan [place] Work Phone: Start: 02-09-2023 Registered Recurring DO Peri Tyson Work Phone: [facility] Cred[facility] Start: 02-06-2023 End: 02-06-2023 ambulatory Peri Marbella Other [employer] Other Start: 02-06-2023 Encounter for genera l adult medical examination without abnormal findings Peri [facility] Start: 02-06-2023 Periodic preventive med est patient 40-64yrs Peri [facility] Start: 02-04-2023 Telephone encounter Peri [facility] Start: 02-04-2023 End: 02-04-2023 ambulatory Peri Tyson Facility:[facility] Start: 02-04-2023 End: 02-04-2023 ambulatory DO Periluis Tyson Work Phone: [facility] Work Phone: Start: 02-04-2023 End: 02-04-2023 Patient encounter procedure DO Peri Tyson Work Phone: [facility]-MRI [address] Work Phone: Start: 02-03-2023 End: 02-03-2023 ambulatory Peri Marbella Other [employer] Other Start: 02-03-2023 Telephone encounter Peri Tyson [facility] Family Medicine [place] Start: 01-29-2023 End: 01-29-2023 ambulatory DO Peri Tyson Work Phone: [facility] Work Phone: Start: 01-29-2023 End: 01-29-2023 Registered Recurring DO Peri Tyson Work Phone: [facility]-Cancer Center Work Phone: Start: 01-21-2023 End: 01-21-2023 ambulatory Periluis Tyson Other [employer] Other Start: 01-21-2023 Telephone encounter Peri Tyson [facility] [place] Start: 01-19-2023 End: 01-19-2023 ambulatory Peri Tyson Other [employer] Other Start: 01-19-2023 Telephone encounter Peri Tyson [facility] Family Medicine [place] Start: 01-15-2023 End: 01-15-2023 ambulatory Patsy Blades Other [employer] Other Start: 01-15-2023 Telephone encounter Patsy Blades [facility] Departure Clerk Start: 01-12-2023 End: 01-12-2023 ambulatory Patsy Blades Other [employer] Other Start: 01-12-2023 Office outpatient ne w 45 minutes Patsy Blades [facility] Neurosurgery Start: 01-12-2023 Telephone encounter Patsy Blades [facility] Neurosurgery Start: 12-24-2022 End: 12-24-2022 ambulatory Peri Tyson Other [employer] Other Start: 12-24-2022 Telephone encounter Periluis Tyson [facility] Family Medicine [place] Start: 12-18-2022 End: 12-18-2022 ambulatory Peri A Tyson Facility:[facility] Start: 12-18-2022 End: 12-18-2022 Admission to same day surgery center DO Peri Tyson Work Phone: [facility]-Surgery Center [place] Start: 12-18-2022 End: 12-18-2022 ambulatory DO Peri A Tyson Work Phone: [facility] Work Phone: Start: 12-16-2022 End: 12-16-2022 ambulatory Peri Tyson Other [employer] Other Start: 12-16-2022 Telephone encounter Peri Tyson [facility] Start: 12-10-2022 End: 12-10-2022 ambulatory Peri Tyson Other [employer] Other Start: 12-10-2022 Telephone encounter Peri Tyson [facility] Start: 12-05-2022 End: 12-05-2022 ambulatory Peri A Tyson Facility:[facility] Start: 12-05-2022 End: 12-05-2022 Departed Referred DO Peri Tyson Work Phone: [facility] Work Phone: Start: 12-05-2022 End: 12-05-2022 Patient encounter procedure DO Peri Marbella Work Phone: [facility] Work Phone: Start: 12-04-2022 End: 12-04-2022 ambulatory Epri A Tyson Facility:[facility] Start: 12-04-2022 End: 12-04-2022 ambulatory DO Peri A Tyson Work Phone: [facility] Work Phone: Start: 12-04-2022 End: 12-04-2022 Patient encounter procedure DO Periluis Tyson Work Phone: [facility]-MRI [place] Work Phone: Start: 11-20-2022 End: 11-20-2022 ambulatory DO Peri Luis Tyson Work Phone: [facility] Work Phone: Start: 11-20-2022 End: 11-20-2022 Discharged Recurring DO Peri Marbella Work Phone: [facility]-Physical Therapy [address] Start: 11-17-2022 End: 11-17-2022 ambulatory Peri Tyson Other [employer] Other Start: 11-17-2022 Telephone encounter Periluis Tyson [facility] Start: 10-27-2022 End: 10-27-2022 ambulatory Peri Tyson Other [employer] Other Start: 10-27-2022 Telephone encounter Peri Tyson [facility] Start: 10-13-2022 End: 10-13-2022 ambulatory Peri Tyson Other [employer] Other Start: 10-13-2022 Telephone encounter Peri Tyson [facility] Start: 10-10-2022 End: 10-10-2022 ambulatory Peri Tyson Other [employer] Other Start: 10-10-2022 Telephone encounter Peri Tyson [facility] Start: 2022 End: 2022 ambulatory Peri Tyson Other [employer] Other Start: 2022 Telephone encounter Peri Tyson [facility] Start: 09-30-2022 End: 09-30-2022 ambulatory Peri Marbella Other [employer] Other Start: 09-30-2022 Telephone encounter Periluis Tyson [facility] Start: 09-24-2022 End: 09-24-2022 ambulatory Peri Marbella Other [employer] Other Start: 09-24-2022 Telephone encounter Periluis Tyson [facility] Start: 09-16-2022 Office outpatient vi sit 25 minutes Peri Tyson [facility] Start: 09-16-2022 End: 09-16-2022 ambulatory DO Peri Luis Marbella Work Phone: [employer] Other Start: 09-16-2022 End: 09-16-2022 Patient encounter procedure DO Peri Marbella Work Phone: [facility]-X-Ray [facility] Start: 09-09-2022 End: 09-09-2022 ambulatory Peri Marbella Other [employer] Other Start: 09-09-2022 Telephone encounter Peri Marbella [facility] Start: 09-05-2022 Registered Recurring DO Peri Marbella Work Phone: [facility] C[facility]-Physical Therapy [address] Start: 08-12-2022 End: 08-12-2022 ambulatory Peri Tyson Other [employer] Other Start: 08-12-2022 Telephone encounter Peri Tyson [facility] Start: 08-07-2022 End: 08-07-2022 ambulatory Peri Luis Tyson Facility:[facility] Start: 08-07-2022 End: 08-07-2022 ambulatory DO Peri A Marbella Work Phone: [facility] Work Phone: Start: 08-07-2022 End: 08-07-2022 Patient encounter procedure DO Peri Tyson Work Phone: [facility]-Lab [place] Work Phone: Start: 08-01-2022 End: 08-01-2022 ambulatory Peri Tyson Other [employer] Other Start: 08-01-2022 Telephone encounter Peri Tyson [facility] [place] Start: 07-30-2022 Registered Recurring DO Peri Tyson Work Phone: [facility]-Cancer Center Work Phone: Start: 07-18-2022 End: 07-18-2022 ambulatory Peri Tyson Other [employer] Other Start: 07-18-2022 Telephone encounter Peri Tyson [facility] [place] Start: 07-17-2022 End: 07-17-2022 ambulatory Peri Tyson Other [employer] Other Start: 07-17-2022 Telephone encounter Peri Tyson [facility] [place] Start: 07-14-2022 End: 07-14-2022 ambulatory Peri Tyson Other [employer] Other Start: 07-14-2022 Telephone encounter Peri Tyson [facility] [place] Start: 07-07-2022 End: 07-07-2022 ambulatory Lulú Ruth Other [employer] Other Start: 07-07-2022 Follow-up encounter Lulú Ruth [facility] Start: 07-07-2022 End: 07-07-2022 Patient encounter procedure DO Peri Tyson Work Phone: [facility]-Ultrasound [facility] Start: 07-03-2022 End: 07-04-[address] SANAM LINARES . Facility: Start: 06-30-2022 End: 06-30-2022 ambulatory Peri Marbella Other [employer] Other Start: 06-30-2022 Telephone encounter Periroyce Tyson [facility] Start: 05-23-2022 Telephone encounter Peri Tyson [facility] Start: 05-23-2022 End: 05-23-2022 ambulatory DO Peri Luis Tyson Work Phone: [facility] Work Phone: Start: 05-23-2022 End: 05-23-2022 Patient encounter procedure DO Periluis Tyson Work Phone: [facility]-Center for Breast Care Work Phone: Start: 05-15-2022 End: 05-15-2022 ambulatory Peri Marbella Other [employer] Other Start: 05-15-2022 Telephone encounter Peri Tyson [facility] Start: 05-12-2022 End: 05-12-2022 ambulatory Peri Tyson Other [employer] Other Start: 05-12-2022 Telephone encounter Peri Tyson [facility] Start: 05-12-2022 Registered Recurring DO Peri Marbella Work Phone: [facility]-Cancer Center Work Phone: Start: 05-09-2022 End: 05-09-2022 Patient encounter procedure DO Peri Marbella Work Phone: [facility]-Lab [place] Work Phone: Start: 05-07-2022 End: 05-07-2022 ambulatory Peri Tyson Other [employer] Other Start: 05-07-2022 Office outpatient vi sit 25 minutes Peri Tyson [facility] Family [facility] [place] Start: 05-06-2022 End: 05-07-[address] SANAM LINARES . Facility: Start: 04-23-2022 End: 04-23-2022 ambulatory DO Giovanni Moreno Work Phone: [facility] Work Phone: Start: 04-23-2022 End: 04-23-2022 Registered Recurring Giovanni Moreno Work Phone: [facility]-Cancer Center Work Phone: Start: 04-22-2022 End: 04-22-2022 ambulatory Peri Tyson Other [employer] Other Start: 04-22-2022 Telephone encounter Peri Tyson [facility] [place] Start: 04-21-2022 End: 04-21-2022 ambulatory Periluis Tyson Other [employer] Other Start: 04-21-2022 Telephone encounter Peri Tyson [facility] [place] Start: 04-17-2022 End: 04-17-2022 ambulatory Peri Tyson Other [employer] Other Start: 04-17-2022 Telephone encounter Peri Tyson [facility] [place] Start: 04-02-2022 End: 04-02-2022 ambulatory Periluis Tyson Other [employer] Other Start: 04-02-2022 Telephone encounter Peri Tyson [facility] [place] Start: 03-31-2022 End: 03-31-2022 ambulatory Periluis Tyson Other [employer] Other Start: 03-31-2022 Telephone encounter Periroyce Tyson [facility] [place] Start: 03-17-2022 End: 03-17-2022 ambulatory Peri Tyson Other [employer] Other Start: 03-17-2022 Telephone encounter Periroyce Tyson [facility] [place] Start: 03-10-2022 End: 03-10-2022 ambulatory Peri Tyson Other [employer] Other Start: 03-10-2022 Telephone encounter Periroyce Tyson [facility] [place] Start: 02-19-2022 End: 02-19-2022 ambulatory DO Giovanni Moreno Work Phone: [facility] Work Phone: Start: 02-19-2022 End: 02-19-2022 Patient encounter procedure DO Giovanni Moreno Work Phone: [facility]Sleep [facility] Start: 02-18-2022 End: 02-18-2022 ambulatory Periroyce Tyson Other [employer] Other Start: 02-18-2022 Telephone encounter Periroyce Tyson [facility] [place] Start: 02-13-2022 End: 02-13-2022 ambulatory Peri Tyson Other [employer] Other Start: 02-13-2022 Telephone encounter Periroyce Tyson [facility] [place] Start: 02-11-2022 End: 02-11-2022 ambulatory Peri Tyson Other [employer] Other Start: 02-11-2022 Telephone encounter Periroyce Tyson [facility] [place] Start: 02-10-2022 End: 02-10-2022 ambulatory Peri Tyson Other [employer] Other Start: 02-10-2022 Telephone encounter Periluis Tyson [facility] [place] Start: 02-03-2022 Office outpatient vi sit 25 minutes Peri Tyson [facility] [place] Start: 02-03-2022 End: 02-03-2022 ambulatory DO Giovanni Moreno Work Phone: [employer] Other Start: 02-03-2022 End: 02-03-2022 Departed Referred DO Giovanni Moreno Work Phone: [facility] Start: 01-22-2022 End: 01-22-2022 ambulatory Periluis Tyson Other [employer] Other Start: 01-22-2022 Telephone encounter Periroyce Tyson [facility] [place] Start: 12-30-2021 End: 12-30-2021 ambulatory Periluis Tyson Other [employer] Other Start: 12-30-2021 Telephone encounter Peri Tyson [facility] [place] Start: 12-23-2021 End: 12-23-2021 ambulatory Periluis Tyson Other [employer] Other Start: 12-23-2021 Office outpatient vi sit 25 minutes Periluis Tyson [facility] [place] Start: 12-23-2021 End: 12-23-2021 Departed Referred DO Giovanni Moreno Work Phone: [facility] Start: 11-29-2021 End: 11-29-2021 ambulatory Josafat Nunes Other [employer] Other Start: 11-29-2021 Telephone encounter Josafat MARTINS [facility] [place] Start: 11-05-2021 End: 11-05-2021 ambulatory Giovanni Moreno Other [employer] Other Start: 11-05-2021 Telephone encounter Giovanni Moreno [facility] [place] Start: 11-04-2021 End: 11-04-2021 ambulatory Adore Schwerer Other [employer] Other Start: 11-04-2021 Telephone encounter Adore Schwerer [facility] [place] Start: 10-31-2021 End: 10-31-2021 ambulatory Adore Schwerer Other [employer] Other Start: 10-31-2021 Telephone encounter Adore Schwerer [facility] [place] Start: 10-23-2021 Registered Recurring DO Giovanni Moreno Work Phone: [facility] Start: 10-21-2021 End: 10-21-2021 Patient encounter procedure DO Giovanni Moreno Work Phone: [facility] Start: 10-21-2021 End: 10-21-2021 ambulatory Giovanni Moreno Other [employer] Other Start: 10-21-2021 Office outpatient vi sit 25 minutes Giovanni Moreno [facility] [place] Start: 10-03-2021 End: 10-03-2021 ambulatory Giovanni Moreno Other [employer] Other Start: 10-03-2021 Telephone encounter Giovanni Moreno [facility] [place] Start: 09-26-2021 End: 09-26-2021 Admission to same day surgery center DO Giovanni Moreno Work Phone: [facility] [place] Start: 09-19-2021 End: 09-19-2021 ambulatory Giovanni Moreno Other [employer] Other Start: 09-19-2021 Telephone encounter Giovanni Moreno [facility] [place] Start: 08-23-2021 End: 08-23-2021 ambulatory Nicko Mckeon Other [employer] Other Start: 08-23-2021 Telephone encounter Nicko Mckeon [facility] Dep[facility]ure [facility] Start: 08-22-2021 End: 08-22-2021 ambulatory Nicko Mckeon Other [employer] Other Start: 08-22-2021 Office consultation new/estab patient 60 min Nicko Linda [facility] Start: 08-08-2021 End: 08-08-2021 ambulatory Giovanni Moreno Other [employer] Other Start: 08-08-2021 Telephone encounter Giovanni Moreno [facility] [place] Start: 08-07-2021 End: 08-07-2021 ambulatory Giovanni Moreno Other [employer] Other Start: 08-07-2021 Office outpatient vi sit 15 minutes Giovanniamber Moreno [facility] [place] Start: 08-07-2021 Telephone encounter Giovanni Moreno [facility] [place] Start: 08-01-2021 End: 08-01-2021 ambulatory Giovanni Moreno Other [employer] Other Start: 08-01-2021 Telephone encounter Giovanni Moreno [facility] [place] Start: 07-29-2021 End: 07-29-2021 ambulatory Giovanni Moreno Other [employer] Other Start: 07-29-2021 Telephone encounter Giovanni Moreno [facility] [place] Start: 07-22-2021 End: 07-22-2021 ambulatory Giovanni Moreno Other [employer] Other Start: 07-22-2021 Office outpatient vi sit 25 minutes Giovanni Moreno [facility] [place] Start: 07-03-2021 End: 07-03-2021 ambulatory Giovanni Moreno Other [employer] Other Start: 07-03-2021 Telephone encounter Giovanni Moreno [facility] [place] Start: 06-25-2021 End: 06-25-2021 ambulatory Giovanni Moreno Other [employer] Other Start: 06-25-2021 Telephone encounter Giovanni Moreno [facility] [place] Start: 06-20-2021 End: 06-20-2021 ambulatory Giovanni Moreno Other [employer] Other Start: 06-20-2021 Office outpatient vi sit 25 minutes Giovanni Moreno [facility] [place] Start: 06-06-2021 End: 06-06-2021 ambulatory Giovanni Moreno Other [employer] Other Start: 06-06-2021 Telephone encounter Giovanni Moreno [facility] [place] Start: 06-05-2021 End: 06-05-2021 ambulatory Giovanni Moreno Other [employer] Other Start: 06-05-2021 Telephone encounter Giovanni Moreno [facility] [place] Start: 05-23-2021 End: 05-23-2021 ambulatory Giovanni Moreno Other [employer] Other Start: 05-23-2021 Patient encounter procedure Giovanni Moreno [facility] [place] Start: 05-23-2021 Telephone encounter Giovanni Moreno [facility] [place] Start: 05-15-2021 End: 05-15-2021 ambulatory Giovanni Moreno Other [employer] Other Start: 05-15-2021 Telephone encounter Giovanni Gaytan [facility] [place] Start: 05-02-2021 End: 05-02-2021 ambulatory Giovanni Moreno Other [employer] Other Start: 05-02-2021 Telephone encounter Giovanni Moreno [facility] [place] Start: 05-01-2021 End: 05-01-2021 ambulatory Giovanni Moreno Other [employer] Other Start: 05-01-2021 Office outpatient vi sit 15 minutes Giovanni Moreno [facility] [place] Start: 04-30-2021 End: 04-30-2021 ambulatory Giovanni Moreno Other [employer] Other Start: 04-30-2021 Telephone encounter Giovanni Gaytan [facility] [place] Start: 04-29-2021 End: 04-29-2021 ambulatory Giovanni Moreno Other [employer] Other Start: 04-29-2021 Telephone encounter Giovanni Gaytan [facility] [place] Start: 04-02-2021 End: 04-02-2021 ambulatory Giovanni Moreno Other [employer] Other Start: 04-02-2021 Office outpatient vi sit 25 minutes Giovanni Moreno [facility] [place] Start: 03-25-2021 End: 03-25-2021 ambulatory Giovanni Moreno Other [employer] Other Start: 03-25-2021 Telephone encounter Giovanni Moreno [facility] [place] Start: 03-21-2021 End: 03-21-2021 ambulatory Giovanni Moreno Other [employer] Other Start: 03-21-2021 Telephone encounter Giovanni Josh Gaytan [facility] [place] Start: 03-04-2021 End: 03-04-2021 ambulatory Domenico Whitmore Other [employer] Other Start: 03-04-2021 Office outpatient ne w 45 minutes Domenico Whitmore [facility] Vascular Surgery Start: 02-27-2021 End: 02-27-2021 ambulatory Giovanni Moreno Other [employer] Other Start: 02-27-2021 Telephone encounter Giovanni Josh Gaytan [facility] [place] Start: 02-20-2021 End: 02-20-2021 ambulatory Giovanni Moreno Other [employer] Other Start: 02-20-2021 Telephone encounter Giovanni Josh Gaytan [facility] [place] Procedures Date Procedure Procedure Detail Performing Clinician Start: 05-08-2023 Duplex scan of lower limb veins DO [employer] Phone: Start: 02-19-2023 Pulse volume recorder pneumoplethysmography DO [employer] Phone: Start: 02-12-2023 Bone marrow sampling DO [employer] Phone: Start: 02-06-2023 Radiologic examination, osseous survey, complete DO [employer] Phone: Start: 02-04-2023 MRI of left hip DO [employer] Phone: Start: 12-18-2022 Phacoemulsification of cataract with intraocular lens implantation DO [employer] Phone: Start: 12-04-2022 MR lumbar spine wo con DO [employer] Phone: Start: 09-16-2022 Plain X-ray of left hip DO [employer] Phone: Start: 07-07-2022 Duplex scan of lower limb veins DO Cecilia Tyson [employer] Phone: Start: 05-23-2022 Screening mammography of bilateral breasts DO Peri Tyson [employer] Phone: Start: 04-25-2022 Pelvis X-ray DO Peri Tyson [employer] Phone: Start: 04-25-2022 X-ray of lumbar spine, two or three views DO Peri Tyson [employer] Phone: Start: 02-03-2022 Urine culture DO Giovanni [...] 07/16/2023 1:45 PM EDT Office Visit [facility] [address] [place] [id number] Svetlana Garcia DO [address] [place] [address] [facility] Start: 06-29-2023 End: 06-29-2023 Patient encounter procedure 06/29/2023 8:40 AM EDT Office Visit [facility] [address] [place] [id number] Mack Pride DPM [address] [address] [facility] Start: 05-08-2023 Duplex scan of lower limb veins US venous duplex LE BI [facility] Start: 05-08-2023 US Lower extremity v ein - bilateral [facility] Start: 02-12-2023 End: 02-12-2023 [facility] Start: 12-18-2022 End: 12-18-2022 [facility] Start: 08-07-2022 Insulin C-peptide measurement [facility] Start: 05-12-2022 [facility] Start: 05-09-2022 [facility] Start: 05-05-2022 [facility] Start: 04-30-2022 [facility] Start: 09-26-2021 End: 09-26-2021 [facility] Work Phone: Start: 1998 Screening for malign ant neoplasm of breast Mammogram [facility] Start: 1988 Screening for malign ant neoplasm of cervix [facility] Start: 10-09-1979 Screening for malign ant neoplasm of cervix Pap Smear [facility] Start: 1958 Screening for malign ant neoplasm of colon [facility] Bacteria identified in Urine by Culture [facility] Bone marrow sampling [facility] Comprehensive metabo lic 1999 panel - Serum or Plasma [facility] Work Phone: Comprehensive metabo lic 2000 panel - Serum or Plasma [facility] Comprehensive metabo lic 1999 panel - Serum or Plasma [facility] Drugs identified [facility] Work Phone: Ferritin [Mass/volum e] in Serum or Plasma [facility] Work Phone: Ferritin [Mass/volum e] in Serum or Plasma [facility] Patient Education [facility] Work Phone: Patient referral [facility] Work Phone: Radiologic examinati on osseous survey compl [facility] XR Lumbar spine 2 or 3 Views [facility] XR Pelvis 1 or 2 Views [facility] Immunizations Immunization Date Immunization Notes Care Provider Ling corona 01-28-2023 Arexvy-For documentation purposes only Periluis Tyson Other [facility] 12-12-2022 influenza, injectabl e, quadrivalent, preservative free Peri Tyson Other [facility] 07-01-2022 influenza, injectabl e, quadrivalent, preservative free Mack Pride DPM Work Phone: [facility] 06-13-2022 Hepatitis B vaccine (recombinant), CpG adjuvanted Mack Pride DPM Work Phone: [facility] 02-18-2022 Pneumococcal Conjuga te PCV 20 Mack Pride DPM Work Phone: [facility] 12-29-2021 COVID-19 Pfizer (bivalent) Peri Marbella Other [facility] 12-25-2021 Influenza, injectabl e, Madin [place] Canine Kidney, preservative free, quadrivalent Mack Pride DPM Work Phone: [facility] 12-25-2021 tetanus toxoid, redu alex diphtheria toxoid, and acellular pertussis vaccine, adsorbed Peri Marbella Other [employer] Other 12-25-2021 influenza, seasonal, injectable Peri Marbella Other [facility] 10-28-2021 COVID-19 Vaccine Moderna - Documentation Purposes Only Peri Tyson Other [facility] 10-28-2021 pneumococcal polysaccharide vaccine, 23 valent Peri Marbella Other [employer] [facility] [employer] Other 06-11-2021 COVID-19 mRNA-1273 (Moderna) DO Giovanni Moreno Work Phone: [facility] 03-12-2021 COVID-19 Vaccine Moderna - Documentation Purposes Only Giovanni Moreno Other [facility] 03-11-2021 Moderna SARS-CoV-2 Booster Vaccination Mack Pride DPM Work Phone: [facility] 01-24-2021 COVID-19 mRNA-1273 (Moderna) DO Giovanni Moreno Work Phone: [facility] 01-11-2021 Flu Vaccine - Adult DO Cecilia Tyson Work Phone: [facility] 01-11-2021 influenza, seasonal, injectable DO Giovanni Moreno Work Phone: [facility] 01-03-2021 influenza, seasonal, injectable Giovanni Moreno Other [facility] 01-03-2021 Influenza, injectabl e, Madin [place] Canine Kidney, preservative free, quadrivalent Mack Pride DPM Work Phone: [facility] 12-22-2020 zoster vaccine recombinant Giovanni Moreno Other [facility] [employer] Other 09-13-2020 zoster vaccine recombinant Giovanni Moreno Other [employer] [facility] [employer] Other 07-31-2020 pneumococcal polysaccharide vaccine, 23 valent Giovanni Moreno Other [facility] [employer] Other 07-25-2020 COVID-19 Vaccine Pfi zer - Documentation Purposes Only Giovanni Moreno Other [facility] 07-12-2020 COVID-19 mRNA-1273 (Moderna) DO Giovanni Moreno Work Phone: [facility] 07-05-2020 COVID-19 Vaccine Pfi zer - Documentation Purposes Only Giovanni Moreno Other [facility] 01-16-2020 influenza, injectabl e, quadrivalent, preservative free Mack Pride DPM Work Phone: [facility] 02-16-2019 Influenza, injectabl e, Madin [place] Canine Kidney, preservative free, quadrivalent Mack Pride DPM Work Phone: [facility] 05-11-2018 pneumococcal conjuga te vaccine, 13 valent Giovanni Moreno Other [facility] [employer] Other 01-28-2018 Influenza, injectabl e, Madin [place] Canine Kidney, quadrivalent with preservative Mack Pride DPM Work Phone: [facility] 02-11-2017 influenza, injectabl e, quadrivalent, contains preservative Mack Pride DPM Work Phone: [facility] 07-09-2016 pneumococcal polysaccharide vaccine, 23 valent Mack Pride DPM Work Phone: [facility] 02-23-2013 influenza virus vaccine, whole virus Mack Pride DPM Work Phone: [facility] 05-21-2012 pneumococcal polysaccharide vaccine, 23 valent Mack Pride DPM Work Phone: [facility] Payers Date Payer Category Payer Self-pay [id number] 2021 Medicaid [employer] [id number] 2021-Present [address] [place] [address] [id number] 1959 Unknown [id number] 1958 Unknown [id number] 2.16.840.1.628076.3.579.2.593 1958 Unknown [id number] 2.16.840.1.751972.3.579.2.593 1958 Unknown [id number] 2.16.840.1.162737.3.579.2.1259 1958 Unknown [id number] 2.16.840.1.860479.3.579.2.1259 Medicaid [employer] [id number] Unknown [id number] 2.16.840.1.226637.3.579.2.531 Unknown [id number] 2.16.840.1.050311.3.579.2.531 Unknown [id number] 2.16.840.1.716102.3.579.2.531 Unknown [id number] 2.16.840.1.420198.3.579.2.531 Unknown [id number] 2.16.840.1.633187.3.579.2.531 Unknown [id number] 2.16.840.1.455411.3.579.2.531 Unknown [id number] 2.16.840.1.752343.3.579.2.531 Unknown [id number] 2.16.840.1.735318.3.579.2.531 Unknown [id number] 2.16.840.1.942279.3.579.2.531 Unknown [id number] 2.16.840.1.384023.3.579.2.531 Unknown [id number] 2.16.840.1.921291.3.579.2.531 Unknown [id number] 2.16.840.1.889641.3.579.2.531 Unknown [id number] 2.16.840.1.525356.3.579.2.531 Unknown [id number] 2.16.840.1.368137.3.579.2.531 Social History Date Type Detail Facility Start: 04-20-2023 Sex Assigned At [employer] Other Start: 10-23-2021 End: 05-12-2023 Tobacco smoking status NHIS Never smoked tobacco (finding) [facility] Start: 1960 Sex Assigned At Female [facility] Start: 09-22-2022 Tobacco use and exposure Smokeless tobacco non-user [facility] Start: 04-20-2023 Alcohol intake Lifetime non-d alexei (finding) [facility] Start: 04-20-2023 History of Social function [facility] Start: 09-18-2022 Alcohol Comment Caffeine intak e: 2-3 cups per day [facility] Start: 1960 Sex Assigned At Not on file [facility] NEGATED: Highlighted rowStart: NINF History of tobacco use Passive smoker [facility] Medical Equipment Procedure Code Equipment Code [...] intraocular lens implantation Posterior-chamber intraocular lens, pseudophakic [id number] FDA Start: 12-18-2022 Phacoemulsification of cataract [...] note Note Date/Time April 28, 2023 9:09am [facility] [address] [place] [address] Wound Center Provider Note Signed Patient: Kelsea Turcios MR#: [id number] : 1960 Acct:[id number] Age/Sex: 62 / F Copies to: Peri Tyson, DO Erica Diehl, VASCULAR SONOGRAPHER~ HPI Date of Visit Date of Visit: Date of Service: 04/28/2023 Time of Service: 09:06 Narrative HPI: 04/28/23 Kelsea is a 62-year-old female [facility] [...] I would like her to see a clinical business manager, especially if the venous studies do not [...] for the past year Mode of Arrival/ Educational Fundraising Director: Personal vehicle Lives with:: Spouse Appetite Description: Within Normal Limits Smoking Status: Never smoker [facility] Medical History (Updated 04/28/23 @ 09:09 by [...] Skin Breakdown Bed Appearance: Beefy Red and [place] Percent of Wound Bed Granulated/Red: 100 Percent of Devitalized: 0 Length (cm): 0.6 Width (cm): 0.5 Depth (cm): 0.1 CM Sq: 0.300 Surrounding Tissue Appearance: Hyperpigmented Surrounding Tissue Temp: Warm Drainage Amount: Scant Drainage Odor: No Odor Right Lower Leg: Type: Venous Stasis Ulcer Thickness: Skin Breakdown Bed Appearance: Beefy Red and [place] Percent of Wound Bed Granulated/Red: 100 Percent [...] 15 Dictated By: Erica Diehl APRN DD/ Signed By: <Electronically signed by LUCI Diehl> 04/28/23 0915 [facility] Work Phone: 1(453) 331-894912-07-2023 Evaluation note* Encounter Date Diagnosis Assessment Notes Treatment Notes Treatment Clinical Notes Mar, Diarrhea (ICD-10 - R19.7) [employer] Other 11-13-2023 Evaluation note* Encounter Date Diagnosis Assessment Notes Treatment Notes Treatment Clinical Notes Feb, Controlled type 2 diabetes mellitus with complication, without long-term current use of insulin (ICD-10 - E11.8) [employer] Other 10-27-2023 Evaluation note* Encounter Date Diagnosis [...] evaluation. DIscussed possible need for vascular f/u [employer] Other 10-24-2023 Evaluation note* Encounter Date Diagnosis Assessment Notes Treatment Notes Treatment Clinical Notes Jan, Controlled type 2 diabetes mellitus with complication, without long-term current use of insulin (ICD-10 - E11.8) [employer] Other 10-19-2023 Progress note Author Roxane Bills [facility] January 29, 2023 9:44am Note Date/Time January 29, 2023 9 :02am [facility] [place] [address] Hem/Onc Follow Up Note - OP Signed Patient: Kelsea Turcios MR#: [id number] : 1960 Acct:[id number] Age/Sex: 62 / F Type: REG RCR [...] a creatinine of 1.64 correlating to EGFR, ozq-Oeuwxsu-Eqxhppsn 32. This has not significantly changed over [...] H, IgM 107, Serum Immunofixation A, Free [place] LC, Quant 237.9 H, Free [place] LC, Quant 38.0 H, Free [place]/Lambda Ratio 6.26 H 01/22/23 13:24: PHA Creatinine Clear 44.97, Sodium 141, Potassium 4.2, Chloride 100, Carbon Dioxide 32.1 H, Anion Gap 13.1, BUN 13, Creatinine 1.37 H, Est GFR (CKD- EPI) 43.118, Glucose 199 H, Calcium 8.6, Iron 74, TIBC 311, Iron Mcwdbmaupc28.8, Transferrin 222, Ferritin 192.2, Total Bilirubin 0.4, [...] % (Auto) 64.2, Lymph % (Auto) 25.5, [place] % (Auto) 5.6, Eos % (Auto) 4.2, Baso % (Auto) 0.5, Nucleat RBC Rel Count 0.0, Neut # (Auto) 8.0 H, Lymph # (Auto) 3.2, [place] # (Auto) 0.7, Eos # (Auto) 0.5 [...] a creatinine of 1.64 correlating to EGFR, hme-Scdryjs-Kfduhalx 32. This has not significantly changed over the last year but is lower than prior labs from 3166-0930. Most recent calcium within normal limits and [...] for coordination of care (as documented) and htpv-[id number] counseling of patient and/or family. Dictated By: Roxane Bills MD DD/ 0900 Signed By: <Electronically signed by MD Roxane Bills> 01/29/23 0944 [facility] Work Phone: 1(760) 739-891710-11-2023 Evaluation note* Encounter Date Diagnosis Assessment Notes Treatment Notes Treatment Clinical Notes Jan, Left hip pain (ICD-10 - M25.552) [employer] Other 10-02-2023 Evaluation note* Encounter Date Diagnosis Assessment Notes Treatment Notes Treatment Clinical Notes Jan, Other chronic pain (ICD-10 - G89.29) Jan, Lumbago with sciatica, left side (ICD-10 - M54.42) [employer] Other 09-05-2023 Evaluation note* Encounter Date Diagnosis Assessment Notes Treatment Notes Treatment Clinical Notes Dec, Acquired lymphedema of lower extremity (ICD-10 - I89.0) [employer] Other 07-17-2023 Evaluation note* Encounter Date Diagnosis Assessment Notes Treatment Notes Treatment Clinical Notes Oct, Type 2 diabetes mellitus with diabetic chronic kidney disease (ICD-10 - E11.22) [employer] Other 07-03-2023 Evaluation note* Encounter Date Diagnosis Assessment Notes Treatment Notes Treatment Clinical Notes Oct, Other chronic pain (ICD-10 - G89.29) [employer] Other 06-28-2023 Evaluation note* Encounter Date Diagnosis Assessment Notes Treatment Notes Treatment Clinical Notes Sep, Gait instability (ICD-10 - R26.81) [employer] Other 06-06-2023 Evaluation note* Encounter Date Diagnosis [...] obstructive pulmonary disease, unspecified (ICD-10 - J44.9) [employer] Other 05-30-2023 Evaluation note* Encounter Date Diagnosis Assessment Notes Treatment Notes Treatment Clinical Notes August, Lumbosacral spondylosis without myelopathy (ICD-10 - M47.817) [employer] Other 05-02-2023 Evaluation note* Encounter Date Diagnosis Assessment Notes Treatment Notes Treatment Clinical Notes August, Chronic obstructive pulmonary disease, unspecified (ICD-10 - J44.9) [employer] Other 04-21-2023 Evaluation note* Encounter Date Diagnosis Assessment Notes Treatment Notes Treatment Clinical Notes Jul, Controlled type 2 diabetes mellitus with complication, without long-term current use of insulin (ICD-10 - E11.8) [employer] Other 04-20-2023 Progress note Author Roxane Bills [facility] July 31, 2022 1:09pm Note Date/Time July 30, 2022 3:0 8pm [facility] at [address] [address] Hem/Onc Follow Up Note - OP Signed Patient: Kelsea Turcios MR#: [id number] : 1960 Acct:[id number] Age/Sex: 61 / F Type: REG RCR [...] a creatinine of 1.64 correlating to EGFR, ybt-Lacqtzk-Ajyjqbbl 32. This has not significantly changed over [...] Negative for environmental allergies and food allergies. [facility] - History Attestation statement: The following information [...] - Last 7 Days 07/22/22 09:12: Free [place] LC, Quant 120.4 H, Free Lambda LC, [...] a creatinine of 1.64 correlating to EGFR, iaq-Zkbjnnl-Ksaxprxq 32. This has not significantly changed over the last year butis lower than prior labs from 4618-9357. Most recent calcium within normal limits and [...] for coordination of care (as documented) and swqe-gm-reju counseling of patient and/or family. Dictated By: Roxane Bills MD DD/ 1500 Signed By: <Electronically signed by MD Roxane Bills> 07/31/22 1308 [facility] Work Phone: [phone]) 470-934804-07-2023 Evaluation note* Encounter Date Diagnosis Assessment Notes Treatment Notes Treatment Clinical Notes Jul, Essential hypertension (ICD-10 - I10) [employer] Other 04-06-2023 Evaluation note* Encounter Date Diagnosis Assessment Notes Treatment Notes Treatment Clinical Notes Jul, Type 2 diabetes mellitus with diabetic chronic kidney disease (ICD-10 - E11.22) [employer] Other 04-03-2023 Evaluation note* Encounter Date Diagnosis Assessment Notes Treatment Notes Treatment Clinical Notes Jul, Essential hypertension (ICD-10 - I10) [employer] Other 03-27-2023 Evaluation note* Encounter Date Diagnosis [...] discussion, agrees with plan, denies any questions. [employer] Other 03-23-2023 NoteCONSULTATION CONSULTATION DATE: 07/03/2022 TO: Dr. Tyson [facility], [place] CHIEF COMPLAINT: Left lower back pain. HISTORY: [...] one pill up to b.i.d. as tolerated.[id number] Evaluation note* Encounter Date Diagnosis Assessment Notes Treatment Notes Treatment Clinical Notes Jun, Type 2 diabetes mellitus with diabetic chronic kidney disease (ICD-10 - E11.22) Jun, Acquired lymphedema of lower extremity (ICD-10 - I89.0) Jun, Cough (ICD-10 - R05.9) [employer] Other 02-02-2023 Evaluation note* Encounter Date Diagnosis Assessment Notes Treatment Notes Treatment Clinical Notes May, Conjunctivitis (ICD-10 - H10.9) [employer] Other 01-25-2023 Evaluation note* Encounter Date Diagnosis [...] on current dose of antihypertensives, will continue [employer] Other 01-24-2023 NoteCONSULTATION CONSULTATION DATE: 05/06/2022 CHIEF COMPLAINT: Low back pain, bilateral lower extremity pain. HISTORY OF PRESENT ILLNESS: This is a 61-year-old female who is referred to us by Dr. Peri Tyson from [facility]. The patient has had chronic [...] kidney disease. The patient takes half a [place] tablet on a p.r.n. basis, duloxetine 60 [...] patient responds, we can increase that to [place] 5/325 on a t.i.d. basis. I would [...] CC: Peri Tyson D.O. Brenden Groves D.O.[facility] [id number] Progress note Author [facility] April 23, 2022 12:40pm Note Date/Time April 23, 2022 1 1:14[facility] [place] [id number] Hem/Onc Follow Up Note - OP Signed Patient: Kelsea Turcios MR#: [id number] : 1960 Acct:[id number] Age/Sex: 61 / F Type: REG RCR [...] a creatinine of 1.64 correlating to EGFR, hel-Mbosdoe-Kzzfnzgn 32. This has not significantly changed over [...] 3.4, Globulin (PEP) 3.9, Albumin/Globulin (PEP) 0.9, Jshjs-0-Swjmglcgq 0.3, Btfjo-3-Whdcbxzzp 0.9, Beta Globulins 1.4 H, Gamma Globulins 1.3, M-Damien 0.4 H, PEP Note , IgG 1443, IgA 625 H, IgM 98, Free [place] LC, Quant 162.6 H, Free Lambda LC, Quant 44.5 H, Free [place]/Lambda Ratio 3.65 H 04/17/22 10:05: PHA Creatinine [...] % (Auto) 61.2, Lymph % (Auto) 24.5, [place] % (Auto) 7.9, Eos % (Auto) 5.9, Baso % (Auto) 0.5, Nucleat RBC Rel Count 0.2, Neut # (Auto) 6.6, Lymph # (Auto) 2.6, [place] # (Auto) 0.8, Eos # (Auto) 0.6 [...] a creatinine of 1.64 correlating to EGFR, eoh-Yasesxo-Sgrowefv 32. This has not significantly changed over the last year but is lower than prior labs from 1454-7763. Most recent calcium within normal limits and [...] for coordination of care (as documented) and esal-mg-hqjk counseling of patient and/or family. Dictated By: Shanae Galicia APRN DD/ 1114 Signed By: <Electronically signed by LUCI Galicia> 04/23/22 1240 [facility] Work Phone: 1(803) 522-886501-10-2023 Evaluation note* Encounter Date Diagnosis Assessment Notes Treatment Notes Treatment Clinical Notes Apr, Controlled substance agreement signed (ICD-10 - Z79.899) [employer] Other 01-09-2023 Evaluation note* Encounter Date Diagnosis Assessment Notes Treatment Notes Treatment Clinical Notes Apr, Unspecified vitamin D deficiency (ICD9-CM - 268.9) Apr, Type 2 diabetes mellitus with diabetic chronic kidney disease (ICD-10 - E11.22) [employer] Other 11-28-2022 Evaluation note* Encounter Date Diagnosis Assessment Notes Treatment Notes Treatment Clinical Notes Feb, Type 2 diabetes mellitus with diabetic chronic kidney disease (ICD-10 - E11.22) [employer] Other 11-08-2022 Evaluation note* Encounter Date Diagnosis Assessment Notes Treatment Notes Treatment Clinical Notes Feb, Controlled substance agreement signed (ICD-10 - Z79.899) Feb, Abdominal pain (ICD-10 - R10.9) [employer] Other 11-03-2022 Evaluation note* Encounter Date Diagnosis Assessment Notes Treatment Notes Treatment Clinical Notes Feb, Acquired lymphedema of lower extremity (ICD-10 - I89.0) [employer] Other 11-01-2022 Evaluation note* Encounter Date Diagnosis Assessment Notes Treatment Notes Treatment Clinical Notes Feb, Type 2 diabetes mellitus without complications (ICD-10 - E11.9) [employer] Other 10-31-2022 Evaluation note* Encounter Date Diagnosis Assessment Notes Treatment Notes Treatment Clinical Notes Jan, UTI (urinary tract infection) (ICD-10 - N39.0) [employer] Other 10-24-2022 Evaluation note* Encounter Date Diagnosis [...] well controlled on current medications, will continue [employer] Other 10-12-2022 Evaluation note* Encounter Date Diagnosis Assessment Notes Treatment Notes Treatment Clinical Notes Jan, Controlled substance agreement signed (ICD-10 - Z79.899) [employer] Other 09-12-2022 Evaluation note* Encounter Date Diagnosis Assessment Notes Treatment Notes Treatment Clinical Notes Dec, Other chronic pain (ICD-10 - G89.29) Was working on previous PCP to wean down on dosage of [place] 5-325. She currently is not taking this every day. She has upcoming f/u for a back injection and was recommended to consider pain management referral for RFA. Can continue use of [place] sparingly as needed for severe pain. I [...] ?diagnosis of narcolepsy in setting of TANYA. [employer] Other 08-19-2022 Evaluation note* Encounter Date Diagnosis Assessment Notes Treatment Notes Treatment Clinical Notes Nov, Essential hypertension (ICD-10 - I10) [employer] Other 07-14-2022 Progress note Author Roxane Bills [facility] October 24, 2021 2:26pm Note Date/Time October 23, 2021 1:18 pm [facility] [place] [address] Hem/Onc Follow Up Note - OP Signed Patient: Kelsea Turcios MR#: [id number] : 1960 Acct:[id number] Age/Sex: 61 / F Type: REG RCR Copies to: Christopher M Germain, DO Giovanni T Josh, D.O.~ Subjective Date/Time of Service: Date of [...] a creatinine of 1.64 correlating to EGFR, gup-Qjghcpd-Dqgcfpff 32. This has not significantly changed over [...] 325 mg PO DAILY 10/23/21 [History Confirmed 07/13/22] ferrous sulfate 325 mg (65 mg iron) [...] a creatinine of 1.64 correlating to EGFR, qdz-Wmuerkp-Sjqfqpqe 32. This has not significantly changed over the last year but is lower than prior labs from 6865-8079. Most recent calcium within normal limits and [...] for coordination of care (as documented) and hzdu-ix-ugut counseling of patient and/or family. Dictated By: Roxane Bills MD DD/ 1317 Signed By: <Electronically signed by MD Roxane Bills> 10/24/21 1426 [facility] Work Phone: [phone]) [phone] Evaluation note* Encounter Date Diagnosis Assessment Notes [...] repeat the chemistry panel at this time. [employer] Other 06-23-2022 Evaluation note* Encounter Date Diagnosis Assessment Notes Treatment Notes Treatment Clinical Notes Sep, Anemia NOS (ICD9-CM - 285.9) [employer] Other 06-09-2022 Evaluation note* Encounter Date Diagnosis Assessment Notes Treatment Notes Treatment Clinical Notes Sep, Type 2 diabetes mellitus with diabetic chronic kidney disease (ICD-10 - E11.22) [employer] Other 06-01-2022 Progress note Author Roxane Bills [facility] September 11, 2021 2:34pm Note Date/Time September 11, 2021 10:47 am [facility] [place] [id number] Hem/Onc Follow Up Note - OP Signed Patient: Kelsea Turcios MR#: [id number] : 1960 Acct:[id number] Age/Sex: 60 / F Type: REG RCR [...] a creatinine of 1.64 correlating to EGFR, dwv-Ppvjatw-Ddojigil 32. This has not significantly changed over [...] protein electrophoresis with no M spike and IMTCH with no monoclonality detected Free kappa elevated [...] a creatinine of 1.64 correlating to EGFR, ykk-Txcnxur-Gfdeupyx 32. This has not significantly changed over the last year but is lower than prior labs from 4106-2728. Most recent calcium within normal limits and [...] biopsy. Due to her large body habitus gloria set up bone marrow biopsy with interventional [...] for coordination of care (as documented) and hwsq-dx-ckat counseling of patient and/or family. Dictated By: Roxane Bills MD DD/ 1045 Signed By: <Electronically signed by MD Roxane Bills> 09/11/21 1430 [facility] Work Phone: [phone]) [phone] Evaluation note* Encounter Date Diagnosis Assessment Notes [...] back surgery. She reports prior injections at [facility] with Dr. Groves. She feels pain can [...] negative findings were considered in medical decision-making. [employer] Other 05-07-2022 Consult note Author Roxane Bills [facility] August 16, 2021 10:27pm Note Date/Time August 16, 2021 10:19a m [facility] at [address] [address] Hem/Onc Consult Note - OP Signed Patient: Kelsea Turcios MR#: [id number] : 1960 Acct:[id number] Age/Sex: 60 / F Type: REG RCR [...] a creatinine of 1.64 correlating to EGFR, ira-Pxjcleg-Hcfpiqhr 32. This has not significantly changed over [...] history of malignancy, chemotherapy, or radiation therapy. [facility] - History Attestation statement: The following information [...] a creatinine of 1.64 correlating to EGFR, clv-Sxxqfdg-Mkmddwbh 32. This has not significantly changed over the last year but is lower than prior labs from 0289-6860. Most recent calcium within normal limits and [...] for coordination of care (as documented) and utxd-sf-anor counseling of patient and/or family. Dictated By: Roxane Bills MD DD/ 1019 Signed By: <Electronically signed by MD Roxane Bills> 08/16/21 6919 [facility] Work Phone: [phone]) [phone] Evaluation note* Encounter Date Diagnosis Assessment Notes [...] the patient did have an MRI at [facility] about 1 year ago. This showed [...] Percocet multiple times a day from the [facility]. I have gradually weaned her dose down and I explained her that my plan is to continue to wean the dose down as I do not typically treat chronic pain with opiates. She has been cooperative with this. She may get opinion from her neurologist or when she establishes with pain management. Jul, Other chronic pain (ICD-10 - G89.29) [employer] Other 04-27-2022 Evaluation note* Encounter Date Diagnosis Assessment Notes Treatment Notes Treatment Clinical Notes Jul, Acquired lymphedema of lower extremity (ICD-10 - I89.0) Jul, Type 2 diabetes mellitus with diabetic chronic kidney disease (ICD-10 - E11.22) [employer] Other 04-11-2022 Evaluation note* Encounter Date Diagnosis [...] ahead and recheck it in 3 months. [employer] Other 03-15-2022 Evaluation note* Encounter Date Diagnosis Assessment Notes Treatment Notes Treatment Clinical Notes Jun, Acquired lymphedema of lower extremity (ICD-10 - I89.0) [employer] Other 03-10-2022 Evaluation note* Encounter Date Diagnosis [...] compression stockings, keeping legs elevated, and activity. [employer] Other 02-23-2022 Evaluation note* Encounter Date Diagnosis Assessment Notes Treatment Notes Treatment Clinical Notes May, Type 2 diabetes mellitus with diabetic chronic kidney disease (ICD-10 - E11.22) [employer] Other 02-10-2022 Evaluation note* Encounter Date Diagnosis Assessment Notes Treatment Notes Treatment Clinical Notes May, Acquired lymphedema of lower extremity (ICD-10 - I89.0) [employer] Other 02-10-2022 Evaluation note* Encounter Date Diagnosis [...] will work-up further. Follow-up in 4 weeks. [employer] Other 02-02-2022 Evaluation note* Encounter Date Diagnosis Assessment Notes Treatment Notes Treatment Clinical Notes May, Unspecified vitamin D deficiency (ICD9-CM - 268.9) [employer] Other 01-19-2022 Evaluation note* Encounter Date Diagnosis [...] following her next appointment with vascular surgery. [employer] Other 12-21-2021 Evaluation note* Encounter Date Diagnosis [...] stop it altogether at this point. Mar, half-way (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 (ICD-10 - Z79.4) [employer] Other 12-09-2021 Evaluation note* Encounter Date Diagnosis Assessment Notes Treatment Notes Treatment Clinical Notes Mar, GERD (gastroesophageal reflux disease) (ICD-10 - K21.9) [employer] Other 11-22-2021 Evaluation note* Encounter Date Diagnosis [...] will undergo full functional venous duplex examination. [employer] Other 11-17-2021 Evaluation note* Encounter Date Diagnosis Assessment Notes Treatment Notes Treatment Clinical Notes Feb, Encounter for screening mammogram for malignant neoplasm of breast (ICD-10 - Z12.31) [employer] Other Evaluation noteNo InformationNort [employer] Other evaluation note* Diagnosis Onset Date Resolution [...] (MGUS) chronic [facility] Work Phone: evaluation noteNo assessment information available [facility] Work Phone: Evaluation note* Diagnosis Onset Date [...] (MGUS) chronic [facility] Work Phone: Evaluation note* Diagnosis Onset Date [...] (MGUS) chronic [facility] Work Phone: Evaluation note* Diagnosis Onset Date Resolution Status Bipolar [...] extremities resolved [facility] Work Phone: Evaluation note* Diagnosis Diabetes mellitus due to underlying condition with diabetic polyneuropathy, with long-term current use of insulin ([facility] documented in this encounter [facility]* [...] both lower extremities acute Venous reflux acute [facility] Work Phone: Evaluation note* Diagnosis Onset Date [...] both lower extremities acute Venous reflux acute [facility] Work Phone: Evaluation note* Diagnosis Onset Date [...] both lower extremities acute Venous reflux acute Symptomatic varicose veins of both lower extremities acute [facility] Work Phone: History general Narrative [...] Hospitalization History child x 4 Hospitalization History mental health [employer] Other [facility] - [facility] [employer] Other [facility] general Narrative - Reported* Type Description Date [...] Hospitalization History child x 4 Hospitalization History [employer] Other Hospital Discharge instructions Additional Instructions POST [...] worsening of your eyesight. Please call your instructional technology coach during normal business hours. If after business hours call Dr. Nik Pineda at his cell [phone] or his office [phone].[facility] Work Phone: Progress note Author Shanae Galicia [facility] April 23, 2022 12:40pm Note Date/Time April 23, 2022 1 1:14[facility] at [address] [address] Hem/Onc Follow Up Note - OP Signed Patient: Kelsea Turcios MR#: [id number] : 1960 Acct:[id number] Age/Sex: 61 / F Type: REG RCR Copies to: MD Brenden Manzo DO Kevin T Carnahan, DSascha~ Subjective Date/Time of Service: Date of Service: [...] a creatinine of 1.64 correlating to EGFR, jjq-Iseesfv-Vqymeauu 32. This has not significantly changed over [...] 3.4, Globulin (PEP) 3.9, Albumin/Globulin (PEP) 0.9, Feogy-2-Lkhhsjxaj 0.3, Mjlvn-5-Yiffpymna 0.9, Beta Globulins 1.4 H, Gamma Globulins 1.3, M-Damien 0.4 H, PEP Note , IgG 1443, IgA 625 H, IgM 98, Free [place] LC, Quant 162.6 H, Free Lambda LC, Quant 44.5 H, Free [place]/Lambda Ratio 3.65 H 04/17/22 10:05: PHA Creatinine [...] % (Auto) 61.2, Lymph % (Auto) 24.5, [place] % (Auto) 7.9, Eos % (Auto) 5.9, Baso % (Auto) 0.5, Nucleat RBC Rel Count 0.2, Neut # (Auto) 6.6, Lymph # (Auto) 2.6, [place] # (Auto) 0.8, Eos # (Auto) 0.6 [...] a creatinine of 1.64 correlating to EGFR, mpz-Qbkwciu-Fqcnccvb 32. This has not significantly changed over the last year but is lower than prior labs from 8106-5145. Most recent calcium within normal limits and [...] for coordination of care (as documented) and kuwt-yd-hnmb counseling of patient and/or family. Dictated By: Shanae Galicia APRN DD/ Signed By: <Electronically signed by LUCI Galicia> 04/23/22 1240 [facility] Work Phone: Progress note Author Erica Diehl [facility] May 12, 2023 8:28am Note Date/Time May 12, 2023 8 :28am [facility] [address] [place] [address] Wound Center Provider Note Signed Patient: Kelsea Turcios MR#: [id number] : 1960 Acct:[id number] Age/Sex: 62 / F Copies to: DO Erica Miranda APRN~ HPI Date of Visit Date of Visit: Date of Service: 05/12/2023 Time of Service: 08:22 Narrative HPI: 04/28/23 Kelsea is a 62-year-old female [facility] [...] I would like her to see a clinical business manager, especially if the venous studies do not [...] for the past year Mode of Arrival/ Educational Fundraising Director: Personal vehicle Lives with:: Spouse Appetite Description: Within Normal Limits Smoking Status: Never smoker [facility] Medical History (Updated 05/12/23 @ 08:27 by [...] Signed By: <Electronically signed by LUCI Diehl> 05/12/23 08 [facility] Work Phone: Reason for visit Narrativediscuss pain management [facility] [employer] Other Reason for visit NarrativeNeurosurgery Referral Update [facility] [employer] Other Reason for Referral Reason left hip pain Diagnosis 1 Left hip pain (M25.5 52) Referral Organization [facility] Family Medicamber Valadez Referring Provider First Name Peri Referring Provider Last Name [facility] Referring Provider Specialty [facility] [employer] Referred Organization [facility] Referred Address ,[place], [place],[address] Referred Provider Specialty Orthopaedic Surgery Referral Priority Routine Reason CANCELLED Excessiv e daytime somnolence, hx narcolepsy diagnosis, currently on CPAP for TANYA Diagnosis 1 TANYA (obstructive sle ep apnea) (G47.33) Referral Organization [facility] Family [facility] Referring Provider First Name Peri Referring Provider Last Name Marbella Referring Provider Specialty Family [employer] Referred Organization [facility] Referred Address [address] [place], [place],[address] Referred Provider Specialty Sleep Medici ne Referral Priority Routine General Notes Elaina Salcido 03/2022 02:41:07 PM > referral received, Feli already faxed referral to Central [facility]. Closing referral Reason * Waiting for appt neurology records pending Diagnosis 1 Low back pain, unspe cified (M54.50) Referral Organization [facility] Family Medicin jose Valadez Referring Provider First Name Giovanni Referring Provider Last Name Josh Referring Provider Specialty Family [employer] Referred Organization [facility] Pain Managemen t Referred Provider Nicko Mckeon Referred Address [address] [facility] [address] ,[place], [place],[address] Referred Provider Specialty Pain Medicin e Referral Priority Routine General Notes Elaina Salcido 01:53:26 PM > referral received and sent p2p successful per log Reason * FU 07/29 ulcer Diagnosis 1 Non-pressure chronic ulcer of unspecified part of unspecified lower leg with unspecified severity (L97.909) Referral Organization [facility] Family Doretha Valadez Referring Provider First Name Giovanni Referring Provider Last Name Josh Referring Provider Specialty Family [facility] Organization [facility] Wound Ca re Hyperbaric Referred Address [address] [place],[address] Referred Provider Specialty Wound Care Referral Priority [...] INSUFF WITH ULCERS VENASEAL RT LEG GSV Amb Documentation 4 WK S/P VENASEAL LEFT LEG Reason for Visit Debility Inflammation Irritable bowel disease On home oxygen therapy Peripheral edema Ulcer of left lower leg Ulcer of right lower leg Venous reflux CKD (chronic kidney disease) stage 3, GFR 30-59 ml/min COPD (chronic obstructive pulmonary disease) Diabetes Morbid obesity TANYA (obstructive sleep apnea) Venous stasis dermatitis of both lower extremities Symptomatic varicose veins of both lower extremities Venous reflux Symptomatic varicose veins of both lower extremities Chief Complaint ble ulcers ble varic ose veins ble edema Open Wound VENOUS INSUFF WITH ULCERS VENASEAL RT LEG GSV Amb Documentation 4 WK S/P VENASEAL LEFT LEG E11.65 I10 E55.9 Z79.4 Reason for Visit Debility Inflammation Irritable bowel disease On home oxygen therapy Peripheral edema Ulcer of left lower leg Ulcer of right lower leg Venous reflux CKD (chronic kidney disease) stage 3, GFR 30-59 ml/min COPD (chronic obstructive pulmonary disease) Diabetes Morbid obesity TANYA (obstructive sleep apnea) Venous stasis dermatitis of both lower extremities Symptomatic varicose veins of both lower extremities Venous reflux Symptomatic varicose veins of both lower extremities Family History No Family History Records Found [...] Tyson DO Primary Care Provider Active Start: April 28, 2023 Erica Diehl APRN Attending Provider Active St art: April 28, 2023 Team Status: Inactive Member Role Status Dates Peri Tyson DO Primary Care Provider Active Ang Murphy [...] Primary Care Provider Active Shanae Galicia , LUCI Attending Provider Acti ve Team Status: Inactive [...] Status Alyssa Bills MD Attending Provider Active Mohan Groves [...] Status Alyssa Bills MD Attending Provider Active Brenden Groves , DO Referring Provider Active Periluis Tyson , DO Primary Care Provider Active Shanae Galicia , LUCI Active Team Status: Inactive Member Role Status Dates Peri Tyson , DO Primary Care Provider Active Roxane Bills MD Attending Provider Active Form Tamper Operator Relationship Specialty Start Date End Date Giovanni Moreno MD [address] [place] [address] PCP - General Family Medicine 09/18/22 Team Status: Active Member Role Status Dates Peri Tyson DO Primary Care Provider Active Start: July 01, 2023 ALEX Grewal Attending Provider Active S tart: July 01, 2023 Team Status: Inactive Member Role Status Dates Peri Tyson DO Primary Care Provider Active Start: July 29, 2023 End: July 29, 2023 Cresencio Chappell MD Attending Provider Active Start: July 29, 2023 End: July 29, 2023 Team Status: Inactive Member Role Status Dates Peri Tyson DO Primary Care Provider Active Start: July 31, 2023 End: July 31, 2023 Jeannie Aguilar MD Attending Provider Active Sta rt: July 31, 2023 End: July 31, 2023 Goals (unrecognized section and content) Goals may be documented in a n alternate section INFORMATION SOURCE (unrecogn ized section and content) DATE CREATED AUTHOR 07/15/2022 [facility] pital DATE CREATED AUTHOR AUTHOR'S ORGANIZ ATION 07/08/2023 [facility] EPIC DATE CREATED AUTHOR AUTHOR'S ORGANIZ ATION 08/02/2023 [facility] FOR RECORDS PERTAINING TO PATIENTS WHO ARE [...] BE BASED ON THE PRIMARY CLINICAL RECORDS. [employer] provides no warranty or guarantee of the accuracy or completeness of information in this document.
== END 2023-08-06 08:17 | disposition home or self-care (01) ==
PROVIDERS: Visit Provider Nurse Practitioner
DX: G57.91 Unspecified mononeuropathy of right lower limb (principal); M48.062 Spinal stenosis, lumbar region with neurogenic claudication; M47.816 Spondylosis without myelopathy or radiculopathy, lumbar region; M62.838 Other muscle spasm; Z79.891 Long term (current) use of opiate analgesic; E11.8 Type 2 diabetes mellitus with unspecified complications; Z99.81 Dependence on supplemental oxygen
CPT/HCPCS: G0463

== ENCOUNTER 2023-09-29 13:41 | Outpatient (OUT) | payer OTHER, SELFPAY ==
--- NOTE | 2023-09-29 | CONS_ITS ---
CONSULTATION DATE: 09/29/2023 HISTORY: Patient returns today complaining of pain in her right hip and buttock area. She rates it 7/10 pain, sharp in character with a dull, throbbing component, increased with activity such as standing, walking and climbing stairs. She feels most comfortable in the semi-recumbent position. Denies any change in bowel and bladder habits or new sensorimotor changes in the lower extremities. Her TYSON on today?s visit was 40%. CURRENT MEDICATION: Includes gabapentin 900 mg at h.s., tizanidine 4 mg b.i.d., [place] 5 mg t.i.d. She reports the medication does improve her quality of life, level of functioning and at times her sleep pattern. No signs of acceleration were noted. She appears to be using the medication appropriately. EXAM: Notable for patient having no clinical radiculopathy or myelopathy involving the lower extremities. She had positive right sided pelvic rock test, Gaenslen?s maneuver and FABERE?s sign with significant myofascial spasm of the right gluteus medius muscle. IMPRESSION: Patient with chronic pain secondary to SI joint dysfunction/sacroiliitis and myofascial dysfunction likely right gluteus medius muscle. RECOMMENDATIONS: I recommend aquatic therapy. Continue with current regimen. If she does not have significant reduction in pain symptoms after physical therapy, will consider proceeding with a right SI joint injection under fluoroscopic guidance. As part of providing excellent, safe, comprehensive care, the following was completed at our patient's visit: 1. A medication reconciliation and review to ensure accurate knowledge of current/active medications, including asking our patients to inform us about any [id number] medications or herbal remedies/nutritional supplements/alternative remedies. 2. A review to specifically ensure our patients have had annual screening for: elevated body mass index (BMI, see intake chart for exact total), tobacco use, screening for depression, and screening for unhealthy alcohol use. When screening is concerning, patients are provided with education and the specific recommendation to discuss the concerning health issue and treatment options with their primary care provider. EILEEN
== END 2023-09-29 13:42 | disposition home or self-care (01) ==
LOC: PM 13:41
PROVIDERS: Visit Provider Anesthesiology Pain Medicine
DX: M25.551 Pain in right hip (principal); M53.3 Sacrococcygeal disorders, not elsewhere classified; M46.1 Sacroiliitis, not elsewhere classified
CPT/HCPCS: G0463

== ENCOUNTER 2023-12-02 09:01 | Outpatient (OUT) | payer MEDICARE, OTHER, SELFPAY ==
--- NOTE | 2023-12-02 09:27 | PM.CN ---
Consult Note: HPI Data of Consult Patient: known to practice within the last 3 years Requesting Physician: Rachana London NP Primary Care Provider: [facility] Consult Narrative Reason for consult: f/u Narrative: Kelsea villatoro pleasant 62 year old female presents for evaluation and management of chronic low back pain. Patient notices increase in pain with walking and activity. Patient does get numbness tingling and weakness in bilateral legs, pain relieved with rest and leaning forward. Has been evaluated by NS and deemed non surgical, following with ortho currently as well. Pain today 5/10 in low back with numbness tingling and weakness in bilateral legs. Patient has been engaged in aquatherapy with improvement in strength. Patient continues to have uncontrolled blood sugars, recent a1c per pt 9.1%. Patient reports benefit from current medication regimen without side effects. cc:: CC: Rachana London NP Review of Systems ROS Status of ROS 10 or more systems reviewed and unremarkable except as noted in history and below Musculoskeletal Reports: back pain and extremity pain Meds Home Medications and Allergies Home Medications ?Medication ?Instructions ?Recorded ?Confirmed ?Type allopurinol 300 mg tablet 300 mg PO DAILY 10/30/22 07/28/23 History amlodipine 5 mg tablet (Norvasc) 5 mg PO DAILY 10/30/22 07/28/23 History benzonatate 100 mg capsule 100 mg PO TID 10/30/22 07/28/23 History brexpiprazole 3 mg tablet (Rexulti) 3 mg PO DAILY 10/30/22 07/28/23 History budesonide-formoterol HFA 160 2 inh inhalation BID 10/30/22 07/28/23 History mcg-4.5 mcg/actuation aerosol inhaler (Symbicort) carvedilol 25 mg tablet 25 mg PO BID 10/30/22 07/28/23 History cholecalciferol (vitamin D3) 50 2,000 unit PO BID 10/30/22 07/28/23 History mcg (2,000 unit) capsule colestipol 1 gram tablet 1 g PO BID 10/30/22 07/28/23 History dicyclomine 20 mg tablet 20 mg PO QID 10/30/22 07/28/23 History doxycycline hyclate 100 mg capsule 100 mg PO DAILY 10/30/22 07/28/23 History duloxetine 60 mg capsule,delayed 60 mg PO DAILY 10/30/22 07/28/23 History release (Cymbalta) furosemide 40 mg tablet 40 mg PO DAILY 10/30/22 07/28/23 History hydroxyzine HCl 10 mg tablet 10 mg PO Q8H 10/30/22 07/28/23 History insulin glargine 100 unit/mL (3 20 unit subcut DAILY 10/30/22 07/28/23 History mL) subcutaneous pen (Lantus Solostar U-100 Insulin) ipratropium 0.5 mg-albuterol 3 mg 3 ml inhalation Q6H 10/30/22 07/28/23 History (2.5 mg base)/3 mL nebulization soln ipratropium bromide 0.02 % 0.5 mg inhalation Q6H PRN 10/30/22 07/28/23 History solution for inhalation shortness of breath or wheezing levomilnacipran 120 mg capsule,24 120 mg PO DAILY 10/30/22 07/28/23 History hr,extended release (Fetzima) levothyroxine 50 mcg capsule 50 mcg PO DAILY 10/30/22 07/28/23 History magnesium oxide 500 mg PO DAILY 10/30/22 07/28/23 History mirtazapine 30 mg tablet 30 mg PO DAILY 10/30/22 07/28/23 History montelukast 10 mg tablet 10 mg PO DAILY 10/30/22 07/28/23 History (Singulair) omeprazole 40 mg capsule,delayed 40 mg PO DAILY 10/30/22 07/28/23 History release oxybutynin chloride 10 mg 10 mg PO DAILY 10/30/22 07/28/23 History tablet,extended release 24 hr sucralfate 1 gram tablet 1 g PO TID 10/30/22 07/28/23 History theophylline 200 mg 200 mg PO DAILY 10/30/22 07/28/23 History capsule,extended release 24 hr (Nishant-24) tizanidine 4 mg capsule (Zanaflex) 4 mg PO BID PRN muscle spasticity 10/30/22 07/28/23 History gabapentin 300 mg capsule 900 mg PO .HS 02/10/23 07/28/23 History gabapentin 600 mg tablet 600 mg PO .NOON 02/10/23 07/28/23 History hydrocodone 5 mg-acetaminophen 325 1 tab PO TID PRN pain #90 tabs 03/04/23 07/28/23 Rx mg tablet gabapentin 600 mg tablet 900 mg PO .AM 07/21/23 07/28/23 History hydrocodone 5 mg-acetaminophen 325 1 tab PO TID PRN pain #90 tabs 08/06/23 Rx mg tablet hydrocodone 5 mg-acetaminophen 325 1 tab PO TID PRN pain #90 tabs 09/02/23 Rx mg tablet hydrocodone 5 mg-acetaminophen 325 1 tab PO TID PRN pain #90 tabs 10/02/23 Rx mg tablet gabapentin 600 mg tablet See Rx Instructions .Route 10/27/23 Rx .COMPLEX #120 tabs hydrocodone 5 mg-acetaminophen 325 1 tab PO TID PRN pain #90 tabs 11/02/23 Rx mg tablet hydrocodone 5 mg-acetaminophen 325 1 tab PO Q8H PRN pain #90 tabs 11/10/23 Rx mg tablet hydrocodone 5 mg-acetaminophen 325 1 tab PO TID PRN pain #90 tabs 11/10/23 Rx mg tablet Allergies Allergy/AdvReac Type Severity Reaction Status Date / Time honey Allergy Severe Anaphylaxis Verified 07/28/23 07:48 codeine Allergy Mild itching Verified 07/28/23 07:48 morphine AdvReac Vomiting Verified 07/28/23 07:48 Exam Constitutional Documenting provider has reviewed patient's vital signs: yes Common normals: no apparent distress, oriented x3, healthy appearing, alert and well nourished General appearance: cooperative Nutritional appearance: obese HENMT Common normals: normocephalic, hearing grossly normal bilaterally and moist oral mucous membranes Head and scalp: normocephalic Eye Common normals: PERRL Pupil: PERRL Neck & C-Spine Common normals: full ROM General: normal visual inspection Chest Common normals: inspection of chest normal Respiratory Common normals: normal respiratory effort, no retractions and no use of accessory muscles Other: chronic O2 Back & Pelvis Lumbar spine/lower back: ROM limited, pain with ROM, straight leg raise positive right and straight leg raise positive left Sacroiliac joints: SI joint(s) abnormal (right SIJ tender over PSIS, positive gabi, thigh thrust and gaenslens. ) Other: intermittent numbness tingling and weakness to bilateral legs chronic low back pain positive facet loading bilaterally bilateral SLR positive, altered sensation to bilateral L4/5 pattern Extremity Common normals: normal to inspection Neuro Common normals: oriented x3, CN's II-XII intact bilaterally, moves all extremities, no focal motor deficits, no sensory deficits noted and deep tendon reflexes 2+ bilaterally Sensorium/orientation: alert Gait (neuro): antalgic and assistive device used walker Motor exam: strength 5/5 throughout and no movement abnormalities noted Psych Common normals: mental status grossly normal, thought process normal, cooperative, affect normal, speech normal and activity/motor behavior normal Speech: normal speech Thought process: normal thought process Results Additional Findings Additional findings: If on a controlled substance or opioids, I have checked an [place] report on this patient and there are no aberrancies noted in the prescribing history.??If on a controlled substance or opioid a drug screen was completed and reviewed within the last year, and if there has not been a drug screen completed we ordered one today to monitor higher risk, state monitored pain medication use. As part of providing excellent, safe, comprehensive care, the following was completed at our patient's visit: 1. A medication reconciliation and review to ensure accurate knowledge of current/active medications, including asking our patients to inform us about any [id number]-zfvcekw medications or herbal remedies/nutritional supplements/alternative remedies. 2. A review to specifically ensure our patients have had annual screening for screening for depression, screening for tobacco use, and screening for unhealthy alcohol use. For concerning screenings had a discussion with the patient, provided patient education, and recommended follow-up with primary care provider when appropriate. If patient noted with a risk of falling, they received education on strength, gait, and balance training to prevent future risk of falling. Assessment and Plan Assessment and Plan (1) Lumbar radiculopathy: (2) Lumbar stenosis with neurogenic claudication: (3) Lumbar spondylosis: (4) Muscle spasm: (5) Encounter for long-term use of opiate analgesic: Assessment and Plan: I feel these medications are improving the patient's quality of life and allow them to tolerate activities of daily living as well as participate in recreational activity.? The patient does not report intolerable side effects. The patient is NOT opioid naive and non-pharmacologic and non-opioid treatment has failed to significantly relieve the patient's pain and improve functionality. The patient has a diagnosis that is related to a somatic or visceral pain etiology. ? ?? I reviewed with the patient the potential risks and side effects with the use of? opioid medications including but not limited to respiratory depression,? sedation, and even . I verified the patient has access to naloxone should? these effects occur. I advised the patient to avoid the use of any other? sedation substances including alcohol, THC, and benzodiazepines while? taking opioid medications due to the risk of compounding side effects and? detrimental outcomes. I reviewed the [employer], pain treatment agreement, urine? drug screen, and opioid start talking forms. The patient was advised to let? their family know they had Naloxone in case they would need to administer? the medication.? ?? A drug screen was completed within the last year, and no aberrancies were noted regarding their use of controlled substances. The patient understands they are subject to the terms and conditions of the pain contract that they have signed. ? ?? I have checked an [place]AR[place] report on this patient today and there are no aberrancies noted in the prescribing history.? (6) Diabetes: Assessment and Plan: recent A1c 9.1%, caution ESIs (7) On home oxygen therapy: Assessment and Plan: utilizing 4-5L NC Plan continue current medications, tolerating well without side effects. risks vs benefits discussed, patient very high risk for opioid therapy would not recommend increasing continue aquatherapy caution additional ESIs at this time, recent A1c 9.1% per pt f/u 3 months, sooner if needed
== END 2023-12-02 09:02 | disposition home or self-care (01) ==
PROVIDERS: Visit Provider Nurse Practitioner
DX: M54.16 Radiculopathy, lumbar region (principal); M48.062 Spinal stenosis, lumbar region with neurogenic claudication; M47.816 Spondylosis without myelopathy or radiculopathy, lumbar region; M62.838 Other muscle spasm; Z79.891 Long term (current) use of opiate analgesic; E11.8 Type 2 diabetes mellitus with unspecified complications; Z99.81 Dependence on supplemental oxygen
CPT/HCPCS: G0463

== ENCOUNTER 2024-03-02 09:12 | Outpatient (OUT) | payer MEDICARE, OTHER, SELFPAY ==
--- NOTE | 2024-03-02 09:34 | P.CN_ITS ---
Consult Note: HPI Data of Consult Patient: known to practice within the last 3 years Requesting Physician: Rachana London NP Primary Care Provider: [facility] Consult Narrative Reason for consult: f/u Narrative: Kelsea villatoro pleasant 63 year old female presents for evaluation and management of chronic low back pain and left leg pain. Patient notices increase in pain with walking and activity. Patient does get numbness tingling and weakness in bilateral legs, pain relieved with rest and leaning forward. Has been evaluated by NS and deemed non surgical, following with ortho currently as well. Pain today 8/10 in low back with numbness tingling and weakness in bilateral legs. Patient continues to have uncontrolled blood sugars, recent a1c per pt 9.1%. Patient reports benefit from current medication regimen without side effects. over the last month has noticed increase pain and swelling to LLE. cc:: CC: Rachana London NP Review of Systems ROS Status of ROS 10 or more systems reviewed and unremark able except as noted in history and below Musculoskeletal Reports: back pain, extremity pain and joint pain Meds Home Medications and Allergies Home Medications ?Medication ?Instructions ?Recorded ?Confirmed ?Type allopurinol 300 mg tablet 300 mg PO DAILY 10/30/22 07/28/23 History amlodipine 5 mg tablet (Norvasc) 5 mg PO DAILY 10/30/22 07/28/23 History benzonatate 100 mg capsule 100 mg PO TID 10/30/22 07/28/23 History brexpiprazole 3 mg tablet (Rexulti) 3 mg PO DAILY 10/30/22 07/28/23 History budesonide-formoterol HFA 160 2 inh inhalation BID 10/30/22 07/28/23 History mcg-4.5 mcg/actuation aerosol inhaler (Symbicort) carvedilol 25 mg tablet 25 mg PO BID 10/30/22 07/28/23 History cholecalciferol (vitamin D3) 50 2,000 unit PO BID 10/30/22 07/28/23 History mcg (2,000 unit) capsule colestipol 1 gram tablet 1 g PO BID 10/30/22 07/28/23 History dicyclomine 20 mg tablet 20 mg PO QID 10/30/22 07/28/23 History doxycycline hyclate 100 mg capsule 100 mg PO DAILY 10/30/22 07/28/23 History duloxetine 60 mg capsule,delayed 60 mg PO DAILY 10/30/22 07/28/23 History release (Cymbalta) furosemide 40 mg tablet 40 mg PO DAILY 10/30/22 07/28/23 History hydroxyzine HCl 10 mg tablet 10 mg PO Q8H 10/30/22 07/28/23 History insulin glargine 100 unit/mL (3 20 unit subcut DAILY 10/30/22 07/28/23 History mL) subcutaneous pen (Lantus Solostar U-100 Insulin) ipratropium 0.5 mg-albuterol 3 mg 3 ml inhalation Q6H 10/30/22 07/28/23 History (2.5 mg base)/3 mL nebulization soln ipratropium bromide 0.02 % 0.5 mg inhalation Q6H PRN 10/30/22 07/28/23 History solution for inhalation shortness of breath or wheezing levomilnacipran 120 mg capsule,24 120 mg PO DAILY 10/30/22 07/28/23 History hr,extended release (Fetzima) levothyroxine 50 mcg capsule 50 mcg PO DAILY 10/30/22 07/28/23 History magnesium oxide 500 mg PO DAILY 10/30/22 07/28/23 History mirtazapine 30 mg tablet 30 mg PO DAILY 10/30/22 07/28/23 History montelukast 10 mg tablet 10 mg PO DAILY 10/30/22 07/28/23 History (Singulair) omeprazole 40 mg capsule,delayed 40 mg PO DAILY 10/30/22 07/28/23 History release oxybutynin chloride 10 mg 10 mg PO DAILY 10/30/22 07/28/23 History tablet,extended release 24 hr sucralfate 1 gram tablet 1 g PO TID 10/30/22 07/28/23 History theophylline 200 mg 200 mg PO DAILY 10/30/22 07/28/23 History capsule,extended release 24 hr (Nishant-24) tizanidine 4 mg capsule (Zanaflex) 4 mg PO BID PRN muscle spasticity 10/30/22 07/28/23 History gabapentin 300 mg capsule 900 mg PO .HS 02/10/23 07/28/23 History gabapentin 600 mg tablet 600 mg PO .NOON 02/10/23 07/28/23 History hydrocodone 5 mg-acetaminophen 325 1 tab PO TID PRN pain #90 tabs 03/04/23 07/28/23 Rx mg tablet gabapentin 600 mg tablet 900 mg PO .AM 07/21/23 07/28/23 History hydrocodone 5 mg-acetaminophen 325 1 tab PO TID PRN pain #90 tabs 08/06/23 Rx mg tablet hydrocodone 5 mg-acetaminophen 325 1 tab PO TID PRN pain #90 tabs 09/02/23 Rx mg tablet hydrocodone 5 mg-acetaminophen 325 1 tab PO TID PRN pain #90 tabs 10/02/23 Rx mg tablet gabapentin 600 mg tablet See Rx Instructions .Route 10/27/23 Rx .COMPLEX #120 tabs hydrocodone 5 mg-acetaminophen 325 1 tab PO TID PRN pain #90 tabs 11/02/23 Rx mg tablet hydrocodone 5 mg-acetaminophen 325 1 tab PO Q8H PRN pain #90 tabs 11/10/23 Rx mg tablet hydrocodone 5 mg-acetaminophen 325 1 tab PO TID PRN pain #90 tabs 11/10/23 Rx mg tablet hydrocodone 5 mg-acetaminophen 325 1 tab PO Q8H PRN pain #90 tabs 12/02/23 Rx mg tablet gabapentin 600 mg tablet See Rx Instructions .Route 12/10/23 Rx .COMPLEX #120 tabs tizanidine 4 mg tablet (Zanaflex) 4 mg PO BEDTIME PRN muscle 12/10/23 Rx spasticity #30 tabs hydrocodone 5 mg-acetaminophen 325 1 tab PO TID PRN pain #90 tabs 01/05/24 Rx mg tablet hydrocodone 5 mg-acetaminophen 325 1 tab PO TID PRN pain #90 tabs 02/08/24 Rx mg tablet Allergies Allergy/AdvReac Type Severity Reaction Status Date / Time honey Allergy Severe Anaphylaxis Verified 07/28/23 07:48 codeine Allergy Mild itching Verified 07/28/23 07:48 morphine AdvReac Vomiting Verified 07/28/23 07:48 Exam Constitutional Documenting provider has reviewed patient's vital signs: yes Common normals: no apparent distress, oriented x3, healthy appearing, alert and well nourished General appearance: cooperative Nutritional appearance: obese HENMT Common normals: normocephalic, hearing grossly normal bilaterally and moist oral mucous membranes Head and scalp: normocephalic Eye Common normals: PERRL Pupil: PERRL Neck & C-Spine Common normals: full ROM General: normal visual inspection Chest Common normals: inspection of chest normal Respiratory Common normals: normal respiratory effort, no retractions and no use of accessory muscles Other: chronic O2 Back & Pelvis Lumbar spine/lower back: ROM limited, pain with ROM and straight leg raise positive right; straight leg raise negative left Sacroiliac joints: SI joint(s) abnormal (right SIJ tender over PSIS, positive gabi, thigh thrust and gaenslens. ) Other: intermittent numbness tingling and weakness to bilateral legs chronic low back pain positive facet loading bilaterally bilateral SLR positive, altered sensation to bilateral L4/5 pattern Extremity Other: LLE non pitting edema no redness warmth or discoloration, scarring to left miramontes Neuro Common normals: oriented x3, CN's II-XII intact bilaterally, moves all extremities, no focal motor deficits, no sensory deficits noted and deep tendon reflexes 2+ bilaterally Sensorium/orientation: alert Gait (neuro): antalgic and assistive device used walker Motor exam: strength 5/5 throughout and no movement abnormalities noted Psych Common normals: mental status grossly normal, thought process normal, cooperative, affect normal, speech normal and activity/motor behavior normal Speech: normal speech Thought process: normal thought process Results Additional Findings Additional findings: If on a controlled substance or opioids, I have checked an [place] report on this patient and there are no aberrancies noted in the prescribing history.??If on a controlled substance or opioid a drug screen was completed and reviewed within the last year, and if there has not been a drug screen completed we ordered one today to monitor higher risk, state monitored pain medication use. As part of providing excellent, safe, comprehensive care, the following was completed at our patient's visit: 1. A medication reconciliation and review to ensure accurate knowledge of current/active medications, including asking our patients to inform us about any jsab-eos-osjbzme medications or herbal remedies/nutritional supplements/alternative remedies. 2. A review to specifically ensure our patients have had annual screening for screening for depression, screening for tobacco use, and screening for unhealthy alcohol use. For concerning screenings had a discussion with the patient, provided patient education, and recommended follow-up with primary care provider when appropriate. If patient noted with a risk of falling, they received education on strength, gait, and balance training to prevent future risk of falling. Assessment and Plan Assessment and Plan (1) Lumbar radiculopathy: (2) Lumbar stenosis: (3) Lumbar spondylosis: (4) Chronic left sacroiliac pain: (5) Muscle spasm: (6) Encounter for long-term use of opiate analgesic: (7) Uncontrolled diabetes mellitus: Plan pt to f/u with PCP regarding new onset LLE edema/swelling/pain pt fo f/u with endocrinoloy regarding uncontrolled DM, defer lumbar ANNE and steroid based injections at this time increase tizanidine 4mg TID PRN pain spasms continue gabapentin 900mg BID and 600mg HS continue hydrocodone-acetaminophen 5-325mg TID PRN moderate to severe pain risks vs benefits of current medications reviewed with pt, continues to find functional benefit without side effects update UDS today for medication monitoring f/u 3 months, sooner if needed
== END 2024-03-02 09:13 | disposition home or self-care (01) ==
PROVIDERS: Visit Provider Nurse Practitioner
DX: M54.16 Radiculopathy, lumbar region (principal); M48.062 Spinal stenosis, lumbar region with neurogenic claudication; M53.3 Sacrococcygeal disorders, not elsewhere classified; M62.838 Other muscle spasm; Z79.891 Long term (current) use of opiate analgesic; E13.69 Other specified diabetes mellitus with other specified complication
CPT/HCPCS: G0463

== ENCOUNTER 2024-06-02 08:52 | Outpatient (OUT) | payer MEDICARE, MEDICAID, SELFPAY ==
--- NOTE | 2024-06-02 09:17 | P.CN_ITS ---
Consult Note: HPI Data of Consult Patient: known to practice within the last 3 years Requesting Physician: Rachana London NP Primary Care Provider: [facility] Consult Narrative Reason for consult: f/u Narrative: Kelsea villatoro pleasant 63 year old female presents for evaluation and management of chronic low back pain and left leg pain. Patient notices increase in pain with walking and activity. Patient does get numbness tingling and weakness in bilateral legs, pain relieved with rest and leaning forward. Has been evaluated by NS and deemed non surgical. Pain today mild 6.5/10 in low back with numbness tingling and weakness in bilateral legs. Patient continues to have uncontrolled blood sugars, recent a1c per pt >13%. Patient reports benefit from current medication regimen without side effects. cc:: CC: Rachana London NP Review of Systems ROS Status of ROS 10 or more systems reviewed and unremark able except as noted in history and below Musculoskeletal Reports: back pain, extremity pain and joint pain Meds Home Medications and Allergies Home Medications ?Medication ?Instructions ?Recorded ?Confirmed ?Type allopurinol 300 mg tablet 300 mg PO DAILY 10/30/22 07/28/23 History amlodipine 5 mg tablet (Norvasc) 5 mg PO DAILY 10/30/22 07/28/23 History benzonatate 100 mg capsule 100 mg PO TID 10/30/22 07/28/23 History brexpiprazole 3 mg tablet (Rexulti) 3 mg PO DAILY 10/30/22 07/28/23 History budesonide-formoterol HFA 160 2 inh inhalation BID 10/30/22 07/28/23 History mcg-4.5 mcg/actuation aerosol inhaler (Symbicort) carvedilol 25 mg tablet 25 mg PO BID 10/30/22 07/28/23 History cholecalciferol (vitamin D3) 50 2,000 unit PO BID 10/30/22 07/28/23 History mcg (2,000 unit) capsule colestipol 1 gram tablet 1 g PO BID 10/30/22 07/28/23 History dicyclomine 20 mg tablet 20 mg PO QID 10/30/22 07/28/23 History doxycycline hyclate 100 mg capsule 100 mg PO DAILY 10/30/22 07/28/23 History duloxetine 60 mg capsule,delayed 60 mg PO DAILY 10/30/22 07/28/23 History release (Cymbalta) furosemide 40 mg tablet 40 mg PO DAILY 10/30/22 07/28/23 History hydroxyzine HCl 10 mg tablet 10 mg PO Q8H 10/30/22 07/28/23 History insulin glargine 100 unit/mL (3 20 unit subcut DAILY 10/30/22 07/28/23 History mL) subcutaneous pen (Lantus Solostar U-100 Insulin) ipratropium 0.5 mg-albuterol 3 mg 3 ml inhalation Q6H 10/30/22 07/28/23 History (2.5 mg base)/3 mL nebulization soln ipratropium bromide 0.02 % 0.5 mg inhalation Q6H PRN 10/30/22 07/28/23 History solution for inhalation shortness of breath or wheezing levomilnacipran 120 mg capsule,24 120 mg PO DAILY 10/30/22 07/28/23 History hr,extended release (Fetzima) levothyroxine 50 mcg capsule 50 mcg PO DAILY 10/30/22 07/28/23 History magnesium oxide 500 mg PO DAILY 10/30/22 07/28/23 History mirtazapine 30 mg tablet 30 mg PO DAILY 10/30/22 07/28/23 History montelukast 10 mg tablet 10 mg PO DAILY 10/30/22 07/28/23 History (Singulair) omeprazole 40 mg capsule,delayed 40 mg PO DAILY 10/30/22 07/28/23 History release oxybutynin chloride 10 mg 10 mg PO DAILY 10/30/22 07/28/23 History tablet,extended release 24 hr sucralfate 1 gram tablet 1 g PO TID 10/30/22 07/28/23 History theophylline 200 mg 200 mg PO DAILY 10/30/22 07/28/23 History capsule,extended release 24 hr (Nishant-24) tizanidine 4 mg capsule (Zanaflex) 4 mg PO BID PRN muscle spasticity 10/30/22 07/28/23 History gabapentin 600 mg tablet See Rx Instructions .Route 12/10/23 Rx .COMPLEX #120 tabs tizanidine 4 mg tablet (Zanaflex) 4 mg PO BEDTIME PRN muscle 12/10/23 Rx spasticity #30 tabs hydrocodone 5 mg-acetaminophen 325 1 tab PO Q8H PRN pain #90 tabs 03/02/24 Rx mg tablet naloxone 4 mg/actuation nasal 4 mg intranasal Q3M PRN opioid 03/04/24 Rx spray (Narcan) overdose #2 ea gabapentin 600 mg tablet See Rx Instructions .Route 03/21/24 Rx .COMPLEX #120 tabs hydrocodone 5 mg-acetaminophen 325 1 tab PO TID PRN pain #90 tabs 04/08/24 Rx mg tablet hydrocodone 5 mg-acetaminophen 325 1 tab PO TID PRN pain #90 tabs 05/09/24 Rx mg tablet gabapentin 600 mg tablet See Rx Instructions .Route 05/11/24 Rx .COMPLEX #120 tabs Allergies Allergy/AdvReac Type Severity Reaction Status Date / Time honey Allergy Severe Anaphylaxis Verified 07/28/23 07:48 codeine Allergy Mild itching Verified 07/28/23 07:48 morphine AdvReac Vomiting Verified 07/28/23 07:48 Exam Constitutional Documenting provider has reviewed patient's vital signs: yes Common normals: no apparent distress, oriented x3, healthy appearing, alert and well nourished General appearance: cooperative Nutritional appearance: obese HENMT Common normals: normocephalic, hearing grossly normal bilaterally and moist oral mucous membranes Head and scalp: normocephalic Eye Common normals: PERRL Pupil: PERRL Neck & C-Spine Common normals: full ROM General: normal visual inspection Chest Common normals: inspection of chest normal Respiratory Common normals: normal respiratory effort, no retractions and no use of accessory muscles Other: chronic O2 Back & Pelvis Lumbar spine/lower back: ROM limited, pain with ROM, straight leg raise positive right and straight leg raise positive left Sacroiliac joints: SI joint(s) abnormal (right SIJ tender over PSIS, positive gabi, thigh thrust and gaenslens. ) Other: intermittent numbness tingling and weakness to bilateral legs chronic low back pain positive facet loading bilaterally bilateral SLR positive, altered sensation to bilateral L4/5 pattern Extremity Other: LLE non pitting edema no redness warmth or discoloration, scarring to left miramontes Neuro Common normals: oriented x3, CN's II-XII intact bilaterally, moves all extremities, no focal motor deficits, no sensory deficits noted and deep tendon reflexes 2+ bilaterally Sensorium/orientation: alert Gait (neuro): antalgic and assistive device used walker Motor exam: strength 5/5 throughout and no movement abnormalities noted Psych Common normals: mental status grossly normal, thought process normal, cooperative, affect normal, speech normal and activity/motor behavior normal Speech: normal speech Thought process: normal thought process Results Additional Findings Additional findings: If on a controlled substance or opioids, I have checked an [place] report on this patient and there are no aberrancies noted in the prescribing history.??If on a controlled substance or opioid a drug screen was completed and reviewed within the last year, and if there has not been a drug screen completed we ordered one today to monitor higher risk, state monitored pain medication use. As part of providing excellent, safe, comprehensive care, the following was completed at our patient's visit: 1. A medication reconciliation and review to ensure accurate knowledge of current/active medications, including asking our patients to inform us about any [id number]-[id number] medications or herbal remedies/nutritional supplements/alternative remedies. 2. A review to specifically ensure our patients have had annual screening for screening for depression, screening for tobacco use, and screening for unhealthy alcohol use. For concerning screenings had a discussion with the patient, provided patient education, and recommended follow-up with primary care provider when appropriate. If patient noted with a risk of falling, they received education on strength, gait, and balance training to prevent future risk of falling. Assessment and Plan Assessment and Plan (1) Lumbar radiculopathy: (2) Lumbar stenosis: (3) Lumbar spondylosis: (4) Chronic left sacroiliac pain: (5) Muscle spasm: (6) Encounter for long-term use of opiate analgesic: (7) Uncontrolled diabetes mellitus: Plan pt fo f/u with endocrinoloy regarding uncontrolled DM, defer lumbar ANNE and steroid based injections at this time continue tizanidine 4mg BID-TID PRN pain spasms continue gabapentin 900mg BID and 600mg HS continue hydrocodone-acetaminophen 5-325mg TID PRN moderate to severe pain risks vs benefits of current medications reviewed with pt, continues to find functional benefit without side effects f/u 3 months, sooner if needed
== END 2024-06-02 08:53 | disposition home or self-care (01) ==
PROVIDERS: Visit Provider Nurse Practitioner
DX: M54.16 Radiculopathy, lumbar region (principal); M48.062 Spinal stenosis, lumbar region with neurogenic claudication; M47.816 Spondylosis without myelopathy or radiculopathy, lumbar region; M53.3 Sacrococcygeal disorders, not elsewhere classified; M62.838 Other muscle spasm; Z79.891 Long term (current) use of opiate analgesic; E11.8 Type 2 diabetes mellitus with unspecified complications
CPT/HCPCS: G0463

== ENCOUNTER 2024-08-15 13:14 | Outpatient (OUT) | payer MEDICARE, MEDICAID, SELFPAY ==
--- NOTE | 2024-08-15 14:12 | PM.CN ---
Consult Note: HPI Data of Consult Patient: known to practice within the last 3 years Consult date: 08/15/24 Requesting Physician: Ang Murphy MD Primary Care Provider: [facility] Consult Narrative Reason for consult: low back, left leg pain Narrative: 63yof who presents for assessment. notes worsening pain throughout low back into left leg. has not had advanced imaging for several years. continues to engage in a series of provider directed home exercises >6 weeks, without lasting benefit. denies adverse med side effects. cc:: CC: Ang Murphy MD Review of Systems ROS Status of ROS 10 or more systems reviewed and unremarkable except as noted in history and below Meds Home Medications and Allergies Home Medications ?Medication ?Instructions ?Recorded ?Confirmed ?Type allopurinol 300 mg tablet 300 mg PO DAILY 10/30/22 07/28/23 History amlodipine 5 mg tablet (Norvasc) 5 mg PO DAILY 10/30/22 07/28/23 History benzonatate 100 mg capsule 100 mg PO TID 10/30/22 07/28/23 History brexpiprazole 3 mg tablet (Rexulti) 3 mg PO DAILY 10/30/22 07/28/23 History budesonide-formoterol HFA 160 2 inh inhalation BID 10/30/22 07/28/23 History mcg-4.5 mcg/actuation aerosol inhaler (Symbicort) carvedilol 25 mg tablet 25 mg PO BID 10/30/22 07/28/23 History cholecalciferol (vitamin D3) 50 2,000 unit PO BID 10/30/22 07/28/23 History mcg (2,000 unit) capsule colestipol 1 gram tablet 1 g PO BID 10/30/22 07/28/23 History dicyclomine 20 mg tablet 20 mg PO QID 10/30/22 07/28/23 History doxycycline hyclate 100 mg capsule 100 mg PO DAILY 10/30/22 07/28/23 History duloxetine 60 mg capsule,delayed 60 mg PO DAILY 10/30/22 07/28/23 History release (Cymbalta) furosemide 40 mg tablet 40 mg PO DAILY 10/30/22 07/28/23 History hydroxyzine HCl 10 mg tablet 10 mg PO Q8H 10/30/22 07/28/23 History insulin glargine 100 unit/mL (3 20 unit subcut DAILY 10/30/22 07/28/23 History mL) subcutaneous pen (Lantus Solostar U-100 Insulin) ipratropium 0.5 mg-albuterol 3 mg 3 ml inhalation Q6H 10/30/22 07/28/23 History (2.5 mg base)/3 mL nebulization soln ipratropium bromide 0.02 % 0.5 mg inhalation Q6H PRN 10/30/22 07/28/23 History solution for inhalation shortness of breath or wheezing levomilnacipran 120 mg capsule,24 120 mg PO DAILY 10/30/22 07/28/23 History hr,extended release (Fetzima) levothyroxine 50 mcg capsule 50 mcg PO DAILY 10/30/22 07/28/23 History magnesium oxide 500 mg PO DAILY 10/30/22 07/28/23 History mirtazapine 30 mg tablet 30 mg PO DAILY 10/30/22 07/28/23 History montelukast 10 mg tablet 10 mg PO DAILY 10/30/22 07/28/23 History (Singulair) omeprazole 40 mg capsule,delayed 40 mg PO DAILY 10/30/22 07/28/23 History release oxybutynin chloride 10 mg 10 mg PO DAILY 10/30/22 07/28/23 History tablet,extended release 24 hr sucralfate 1 gram tablet 1 g PO TID 10/30/22 07/28/23 History theophylline 200 mg 200 mg PO DAILY 10/30/22 07/28/23 History capsule,extended release 24 hr (Nishant-24) tizanidine 4 mg capsule (Zanaflex) 4 mg PO BID PRN muscle spasticity 10/30/22 07/28/23 History gabapentin 600 mg tablet See Rx Instructions .Route 12/10/23 Rx .COMPLEX #120 tabs tizanidine 4 mg tablet (Zanaflex) 4 mg PO BEDTIME PRN muscle 12/10/23 Rx spasticity #30 tabs hydrocodone 5 mg-acetaminophen 325 1 tab PO Q8H PRN pain #90 tabs 03/02/24 Rx mg tablet naloxone 4 mg/actuation nasal 4 mg intranasal Q3M PRN opioid 03/04/24 Rx spray (Narcan) overdose #2 ea gabapentin 600 mg tablet See Rx Instructions .Route 03/21/24 Rx .COMPLEX #120 tabs hydrocodone 5 mg-acetaminophen 325 1 tab PO TID PRN pain #90 tabs 04/08/24 Rx mg tablet hydrocodone 5 mg-acetaminophen 325 1 tab PO TID PRN pain #90 tabs 05/09/24 Rx mg tablet gabapentin 600 mg tablet See Rx Instructions .Route 05/11/24 Rx .COMPLEX #120 tabs gabapentin 600 mg tablet See Rx Instructions .Route 06/02/24 Rx .COMPLEX #120 tabs hydrocodone 5 mg-acetaminophen 325 1 tab PO TID PRN pain #90 tabs 06/02/24 Rx mg tablet hydrocodone 5 mg-acetaminophen 325 1 tab PO Q8H PRN pain #90 tabs 07/07/24 Rx mg tablet hydrocodone 5 mg-acetaminophen 325 1 tab PO TID PRN pain #90 tabs 08/11/24 Rx mg tablet gabapentin 600 mg tablet See Rx Instructions .Route 08/15/24 Rx .COMPLEX #120 tabs Allergies Allergy/AdvReac Type Severity Reaction Status Date / Time honey Allergy Severe Anaphylaxis Verified 07/28/23 07:48 codeine Allergy Mild itching Verified 07/28/23 07:48 morphine AdvReac Vomiting Verified 07/28/23 07:48 Exam Narrative Exam Narrative: Psych-alert and oriented x 3. Attentive and appropriate, constitutionally normal, displays normal mood and affect per situation. There are no obvious deficits in memory, reasoning, or intellect.? Skin-no obvious rashes, bruising, erythema noted to the patient's area of pain.? Extremities- extremities are warm with minimal edema and palpable pulses. Lumbar-tenderness to palpation noted in the lumbar spine and paraspinal musculature. Pain is not elicited with flexion, extension, and lateral rotation of the lumbar spine. Range of motion is not diminished with these motions. Facet loading maneuvers are negative.? Strength-noted to be unremarkable with the exception of decreased strength rated at 4 out of 5 in left quadriceps femoris, anterior tibialis. Sensory-no notable sensory deficits in the bilateral lower extremities to touch or pinprick in all dermatomal distributions with the exception to decreased sensation to the left L4, 5 dermatomal distribution Coordination remains intact.? Gait remains non-antalgic. Assessment and Plan Assessment and Plan (1) Lumbar stenosis with neurogenic claudication: Plan 63yof who presents for assessment. failed conservative measures, as noted. discussed that given worsening symptoms and long time frame since most recent advanced imaging, will update lumbar mri without contrast. she is in agreement. meds reviewed, no changes. uds obtained. follow up after imaging.
== END 2024-08-15 13:15 | disposition home or self-care (01) ==
PROVIDERS: Visit Provider Anesthesiology Pain Medicine
DX: M48.062 Spinal stenosis, lumbar region with neurogenic claudication (principal)
CPT/HCPCS: G0463

== ENCOUNTER 2024-09-01 08:55 | Outpatient (OUT) | payer MEDICARE, MEDICAID, SELFPAY ==
--- OUTSIDE RECORDS SUMMARY | 2024-08-31 10:58 | XMS_ITS ---
Author Name Auto Generated Organization OHIP Care Team Providers Care Digital Account Director Name Role Phone FELIX MARTINEZ Attending Unavailable BROWN, RACHEL A Attending Unavailable RACHEL TSAI A Attending Unavailable RACHEL TSAI A Attending Unavailable MICHELLE, ARTURMAPao F Attending Unavailable LALIT MONK Attending Unavailable LALIT MONK Attending Unavailable MICHELLE, ARTURMAD F Attending Unavailable MICHELLE, ARTURMAD F Referring Unavailable RACHEL TSAI A Attending Unavailable RACHEL TSAI A Attending Unavailable Marbella, Peri A Primary Care Unavailable Rachana London Admitting Unavailable Rachana London Attending Unavailable Tyson, Peri A Primary Care Unavailable Sylvia, Truong Admitting Unavailab le Sylvia, Truong Attending Unavailab le Tyson, Peri A Primary Care Unavailable Roxane Bills Admitting Unavailable Roxane Bills Attending Unavailable Brenden Groves Referring Unavailab le Tyson, Peri A Admitting Unavailable Tyson, Peri A Primary Care Unavailable Marbella, Peri A Attending Unavailable Richard PARK, Emma Mart Attending Unavailable PROBLEMS DATE TYPE CONDITION / CODE ATTENDING STATUS [facility] 08/31/2024 Unknown Monoclonal gammo tiara / D47.2(ICD-10) Roxane Bills [facility] 08/11/2024 Unknown Type 2 diabetes mellitus without complications / E11.9(ICD-10) Marbella Peri A [facility] 08/11/2024 Unknown Effusion, unspec ified joint / M25.40(ICD-10) Tyson Peri A [facility] 08/11/2024 Unknown Stiffness of uns pecified joint, not elsewhere classified / M25.60(ICD-10) Marbella Peri Luis [facility] 12/30/2023 Unknown Sacroiliitis, no t elsewhere classified / M46.1(ICD-10) Rachana London [facility] PROCEDURES No Procedure Records Found RESULTS COMPLETE BLOOD COUNT AUTO DIFF Collected: 08/23/2024 11:34 AM Status: F Source: [facility] TYPE CODE TESTS RESULT OUT OF RANGE REFERENCE UNITS LAB WBC White Blood Count 13.4 High 3.8-11.6 10*3/uL LAB UNWBC Uncorrected WBC 13.4 High 3.8-11.6 10*3/uL LAB RBC Red Blood Count 4.72 Normal 3.60-5.00 10*6/u L LAB HGB Hemoglobin 13.1 Normal 11.8-15.4 g/dL LAB HCT Hematocrit 41.6 Normal 34.0-46.4 % LAB MCV Mean Corpuscular Volume 88.3 Normal 80-100 fL LAB MCH Mean Corpuscular Hemoglobin 27.8 Normal 24.7-34.3 pg LAB MCHC Mean Corpuscular HGB Conc 31.5 Low 32.0-35.0 g/dL LAB RDW Red Cell Distribution Width 15.3 Normal 11.9-15.3 % LAB PLT Platelet Count 252 Normal 150-450 10*3/uL LAB MPV Mean Platelet Volume 7.4 Normal 6.3-10.7 fL LAB NE% Neutrophils % (Auto) 57.3 . % LAB LY% Lymphocytes % (Auto) 28.7 . % LAB MO% Monocytes % (Auto) 8.0 . % LAB EO% Eosinophils % (Auto) 4.5 . % LAB BA% Basophils % (Auto) 1.5 . % LAB NRBC% NRBC% 0.0 Normal 0-0.5 /100{WBC} LAB NE# Neutrophils # (Auto) 7.7 Normal 1.8-7.7 10*3/uL LAB LY# Lymphocytes # (Auto) 3.8 Normal 1.00-4.8 10*3/uL LAB MO# Monocytes # (Auto) 1.1 High 0.0-0.8 10*3/uL LAB EO# Eosinophils # (Auto) 0.6 High 0.0-0.45 10*3/uL LAB BA# Basophils # (Auto) 0.2 Normal 0.0-0.2 10*3/uL Result Comment: PERFORMED BY : [place] [address] PATHOLOGIST [employer] DEVELOPMENT MANAGER RONI BERRY M.D. Performed By: #### FE and TI BC, CLEOPATRA, CMP, CBC, LDH #### [address] #### KAPPA, SPE, MITCH SERUM #### [facility] , COMPREHENSIVE METABOLIC PANEL Collected: 08/23/2024 1 1:34 AM Status: F Source: [facility] TYPE CODE TESTS RESULT OUT OF RANGE REFERENCE UNITS LAB GLU Glucose 61 Low 70-100 mg/dL Result Comment: Random Gluco se Reference Range is dependent on time and content of last meal. Glucose of more than 200 mg/dL in a nonstressed, ambulatory subject supports the diagnosis of Diabetes Mellitus. ADA recommended reference range LAB BUN Blood Urea Nitrogen 33 High 7-25 mg/d L LAB CREATT Creatinine 1.43 High 0.60-1.20 mg/dL LAB GFReNR Estimated GFR 40.702 mL/Min LAB NA Sodium 142 Normal 136-145 mmol/L LAB K Potassium 3.9 Normal 3.5-5.1 mmol/L LAB CL Chloride 99 Normal 98-107 mmol/L LAB CO2 Carbon Dioxide 34.8 High 21.0-31.0 mmol/L LAB GAP Anion Gap 12.1 Normal 6.0-15.0 meq/L LAB CA Calcium 9.5 Normal 8.6-10.3 mg/dL LAB TP Total Protein 7.6 Normal 6.4-8.9 g/dL LAB ALB Albumin Level 4.0 Normal 3.5-5.7 g/dL LAB GLOB Globulin 3.6 g/dL LAB AGRATIO Albumin/Globulin Ratio 1.1 LAB BILIT Bilirubin,Total 0.3 Normal 0.3-1.0 mg/dL LAB AST Aspartate Amino Transferase 30 Normal 13-39 U/L LAB ALT Alanine Aminotransferase 37 Normal 7-52 U/L LAB ALP Alkaline Phosphatase 140 High 34-104 U/L LAB CRCLPHA Creatinine Clr C alc Pharmacy 45.28 Performed By: #### FE and TI BC, CLEOPATRA, CMP, CBC, LDH #### [facility] [address] [place] [address] [place] #### KAPPA, SPE, MITCH SERUM #### [facility] , LDH LACTATE DEHYDROGENASE Collected: 08/23/2024 11:34 AM Status: F Source: [facility] TYPE CODE TESTS RESULT OUT OF RANGE REFERENCE UNITS LAB LDH LDH Lactate Dehydrogenase 277 High 140-271 U/L Performed By: #### FE and TI BC, CLEOPATRA, CMP, CBC, LDH #### [place] [address] [place] #### KAPPA, SPE, MICTH SERUM #### [facility] , IRON AND TIBC PROFILE Collected: 08/23/2024 11:34 AM Status: F Source: [facility] TYPE CODE TESTS RESULT OUT OF RANGE REFERENCE UNITS LAB FE Iron 57 Normal 50-212 ug/dL LAB TIBCT Total Iron Binding Capacity 364 Normal 255-450 ug/dL LAB FESAT% % Iron Saturation 15.7 Low 20-50 % LAB TRANS Transferrin 260 Normal 203-362 mg/dL Performed By: #### FE and TI BC, CLEOPATRA, CMP, CBC, LDH #### [facility] [address] [place] [address] #### KAPPA, SPE, MITCH SERUM #### [facility] , FERRITIN Collected: 11:34 AM Status: F Source: [facility] TYPE CODE TESTS RESULT OUT OF RANGE REFERENCE UNITS LAB CLEOPATRA Ferritin 101.2 Normal 11.0-306.8 ng/mL Result Comment: PERFORMED BY : [place] [address] PATHOLOGIST [employer] DEVELOPMENT MANAGER RONI BERRY M.D. Performed By: #### FE and TI BC, CLEOPATRA, CMP, CBC, LDH #### [facility] [address] [place] [address] #### KAPPA, SPE, MITCH SERUM #### [facility] , IMMUNOFIXATION,SERUM Collected: 025 11:34 AM Status: F Source: [facility] TYPE CODE TESTS RESULT OUT OF RANGE REFERENCE UNITS LAB MITCH SERUM. Immunofixation, Serum Comment Abnormal Alert . Result Comment: Immunofixati on shows IgG monoclonal protein with kappa light chain specificity. PLEASE NOTE: Samples from patients receiving DARZALEX(R) (daratumumab) or SARCLISA(R)(isatuximab-irfc) treatment can appear as an IgG kappa and mask a complete response (CR). If this patient is receiving these therapies, this MITCH assay interference can be removed by ordering test number [id number]- Immunofixation, Daratumumab-Specific, Serum or 136405- Immunofixation, Isatuximab-Specific, Serum and submitting a new sample for testing or by calling the lab to add this test to the current sample. LAB IGG Immunoglobulin G 1832 High 586-1602 mg/dL LAB IGA Immunoglobulin A, Serum 546 High 87-352 mg/dL LAB IGM Immunoglobulin M, Serum 97 26-217 mg/dL Result Comment: Performed at : [address] [id number] Printed Circuit Board Assembly Repairer: Jhoan Rich PhD, Phone: [phone] Performed By: #### FE and TI BC, CLEOPATRA, CMP, CBC, LDH #### [address] #### KAPPA, SPE, MITCH SERUM #### [facility] , PROTEIN ELECTROPHORESIS, SERUM Collecte d: 08/23/2024 11:34 AM Status: F Source: [facility] TYPE CODE TESTS RESULT OUT OF RANGE REFERENCE UNITS LAB SPETP Total Protein, Serum 7.7 6.0-8.5 g/dL LAB SPEALB Albumin, Serum 3.3 2.9-4.4 g/dL LAB SPEA1G Xssjm-7-Tjmd ulin 0.3 0.0-0.4 g/dL LAB SPEA2G Pxdmr-8-Ufci ulin 1.0 0.4-1.0 g/dL LAB SPEBG Beta Globulin 1.3 0.7-1.3 g/dL LAB SPEGG Gamma Globulin 1.7 0.4-1.8 g/dL LAB SPEMS M-Damien 1.0 High Not Observed g/dL LAB SPEGLOB Globulin, Total 4.4 High 2.2-3.9 g/dL LAB SPEAG A/G Ratio 0.8 0.7-1.7 LAB SPENOTE SPE-Note Comment . Result Comment: Protein elec trophoresis scan will follow via computer, mail, or flat ironer delivery. Performed at: [address] [id number] [employer] Board Assembly Repairer: Jhoan Rich PhD, Phone: [phone] Performed By: #### FE and TI BC, CLEOPATRA, CMP, CBC, LDH #### [facility] [address] [place] [address] [place] #### KAPPA, SPE, MITCH SERUM #### [facility] , FREE K+L LT CHAINS, QN, S Collected: 11:34 AM Status: F Source: [facility] TYPE CODE TESTS RESULT OUT OF RANGE REFERENCE UNITS LAB KAPPA LTC Free [place] Light Chains, S 281.2 High 3.3-19.4 mg/L LAB LAMBDA LTC Free Lambda Light Chains, S 33.7 High 5.7-26.3 mg/L LAB KL RATIO. [place]/Lambda Ratio, S 8.34 High 0.26-1.65 Result Comment: Performed at : [facility] [address] [id number] [employer] Board Assembly Repairer: Jhoan Rich PhD, Phone: [phone] PERFORMED BY: [place] [address] PATHOLOGIST [employer] DEVELOPMENT MANAGER RONI BERRY M.D. Performed By: #### FE and TI BC, CLEOPATRA, CMP, CBC, LDH #### [facility] [address] [place] [address] #### KAPPA, SPE, MITCH SERUM #### [facility] , ERYTHROCYTE SEDIMENTATION RATE Collected: 08/11/2024 12:36 PM Status: F Source: [facility] TYPE CODE TESTS RESULT OUT OF RANGE REFERENCE UNITS LAB ESR Erythrocyte Sedimentation Rate 65 High 0-29 Result Comment: PERFORMED BY : [place] [address] PATHOLOGIST [employer] DEVELOPMENT MANAGER RONI BERRY M.D. Performed By: #### LIPID, ES R, URMACRERAT #### [facility] [address] [place] [address] #### CCP, RA #### [facility] , MICROALB CREAT RATIO,U Collected: 08/11 12:36 PM Status: F Source: [facility] TYPE CODE TESTS RESULT OUT OF RANGE REFERENCE UNITS LAB UMAT Microalbumin , Urine 1.5 Normal 0.0-1.8 mg/dL LAB UCREA Creatinine, Urine (Random) 29.00 mg/dL Result Comment: No reference range established LAB MACREATRATIO Microalbumin /Creatinine Ratio 51.7 High 0.0-30.0 mg/g Result Comment: 30-300 mg/g indicates an increased risk for diabetic nephropathy. Greater than 300 mg/g is consistent with clinical nephropathy. (Am. J. Kidney Disease 1995, 25:107) PERFORMED BY: [address] [address] PATHOLOGIST [employer] DEVELOPMENT MANAGER RONI BERRY M.D. Performed By: #### LIPID, ES R, URMACRERAT #### [facility] [address] [place] [address] [facility] #### CCP, RA #### [facility] , LIPID PANEL Collected: 08/11/2024 12:36 PM Status: F Source: [facility] TYPE CODE TESTS RESULT OUT OF RANGE REFERENCE UNITS LAB CHOL Cholesterol 159 Normal 140-200 mg/dL Result Comment: Chol less th an 200 mg/dl low risk Chol 201-239 mg/dl borderline risk Chol 240 mg/dl and greater high risk LAB HDL HDL Cholesterol 52 Normal 23-92 mg/dL Result Comment: HDL CHOL ATP -III CLASSIFICATION Cardiovascular Risk HDL > or equal to 60 mg/dL LOW HDL < 40 mg/dL HIGH LAB TRIG W REF Triglyceride w/Reflex 85 Normal 0-149 mg/dL Result Comment: TRIG ATP III CLASSIFICATION TRIG less than 150 mg/dL Normal TRIG 150-199 mg/dL Borderline high TRIG 200-500 mg/dL High TRIG greater than 500 mg/dL Very high Standard traceable to the Center for Disease Conrtrol and Prevention (CDC) test method. LAB LDLC LDL Cholesterol,Calc ulated 90 Normal 0-100 mg/dL Result Comment: LDL ATP III CLASSIFICATION LDL less than 100 mg/dL Optimal LDL 100-129 mg/dL Near or above optimal LDL 130-159 mg/dL Borderline high LDL 160-189 mg/dL High LDL greater than 189 mg/dL Very high LAB VLDL VLDL CHOLESTEROL 17 mg/dL LAB CHLHDL Chol/HDL Ratio 3.1 <5.0 Result Comment: PERFORMED BY : [facility] [address] [place] [address] PATHOLOGIST [employer] DEVELOPMENT MANAGER RONI BERRY M.D. Performed By: #### LIPID, ES R, URMACRERAT #### [facility] [address] [place] [address] #### CCP, RA #### [facility] , RHEUMATOID FACTOR Collected: 08/11/2024 12:36 PM Sta tus: F Source: [facility] TYPE CODE TESTS RESULT OUT OF RANGE REFERENCE UNITS LAB RA Rheumatoid Factor <10.0 <14.0 [IU]/mL Result Comment: Performed at : [facility] [place] [address] [employer] Board Assembly Repairer: Jhoan Rich PhD, Phone: [phone] Performed By: #### LIPID, ES R, URMACRERAT #### [address] #### CCP, RA #### [facility] , CYCLIC CITRULLIATED PEP AB Collected: 08/11/2024 12:3 6 PM Status: F Source: [facility] TYPE CODE TESTS RESULT OUT OF RANGE REFERENCE UNITS LAB CCP Cyclic Citrulliated Pep Ab 12 0-19 Result Comment: Negative <20 Weak positive 20 - 39 Moderate positive 40 - 59 Strong positive >59 Performed at: [facility] [address] [id number] [employer] Assembly Repairer: Jhoan Rich PhD, Phone: [phone] PERFORMED BY: [place] [address] PATHOLOGIST [employer] DEVELOPMENT MANAGER RONI BERRY M.D. Performed By: #### LIPID, ES R, URMACRERAT #### [address] #### CCP, RA #### [facility] , COMPLETE BLOOD COUNT AUTO DIFF Collected: 02/24/2024 10:03 AM Status: F Source: [facility] TYPE CODE TESTS RESULT OUT OF RANGE REFERENCE UNITS LAB WBC White Blood Count 10.5 Normal 3.8-11.6 10*3/uL LAB UNWBC Uncorrected WBC 10.5 Normal 3.8-11.6 10*3/uL LAB RBC Red Blood Count 4.39 Normal 3.60-5.00 10*6/u L LAB HGB Hemoglobin 12.5 Normal 11.8-15.4 g/dL LAB HCT Hematocrit 38.8 Normal 34.0-46.4 % LAB MCV Mean Corpuscular Volume 88.3 Normal 80-100 fL LAB MCH Mean Corpuscular Hemoglobin 28.4 Normal 24.7-34.3 pg LAB MCHC Mean Corpuscular HGB Conc 32.2 Normal 32.0-35.0 g/dL LAB RDW Red Cell Distribution Width 15.0 Normal 11.9-15.3 % LAB PLT Platelet Count 209 Normal 150-450 10*3/uL LAB MPV Mean Platelet Volume 7.8 Normal 6.3-10.7 fL LAB NE% Neutrophils % (Auto) 67.2 . % LAB LY% Lymphocytes % (Auto) 21.3 . % LAB MO% Monocytes % (Auto) 6.5 . % LAB EO% Eosinophils % (Auto) 4.5 . % LAB BA% Basophils % (Auto) 0.5 . % LAB NRBC% NRBC% 0.0 Normal 0-0.5 /100{WBC} LAB NE# Neutrophils # (Auto) 7.0 Normal 1.8-7.7 10*3/uL LAB LY# Lymphocytes # (Auto) 2.2 Normal 1.00-4.8 10*3/uL LAB MO# Monocytes # (Auto) 0.7 Normal 0.0-0.8 10*3/uL LAB EO# Eosinophils # (Auto) 0.5 High 0.0-0.45 10*3/uL LAB BA# Basophils # (Auto) 0.1 Normal 0.0-0.2 10*3/uL Result Comment: PERFORMED BY : [place] [address] PATHOLOGIST [employer] DEVELOPMENT MANAGER RONI BERYR M.D. Performed By: #### FE and TI BC, CLEOPATRA, CBC, CMP #### [place] [address] [place] #### SPE, MITCH SERUM, KAPPA #### [facility] , COMPREHENSIVE METABOLIC PANEL Collected: 02/24/2024 1 0:03 AM Status: F Source: [facility] TYPE CODE TESTS RESULT OUT OF RANGE REFERENCE UNITS LAB GLU Glucose 264 High 70-100 mg/dL Result Comment: Random Gluco se Reference Range is dependent on time and content of last meal. Glucose of more than 200 mg/dL in a nonstressed, ambulatory subject supports the diagnosis of Diabetes Mellitus. ADA recommended reference range LAB BUN Blood Urea Nitrogen 24 Normal 7-25 mg/d L LAB CREATT Creatinine 1.32 High 0.60-1.20 mg/dL LAB GFReNR Estimated GFR 44.805 LAB NA Sodium 141 Normal 136-145 mmol/L LAB K Potassium 4.2 Normal 3.5-5.1 mmol/L LAB CL Chloride 98 Normal 98-107 mmol/L LAB CO2 Carbon Dioxide 35.8 High 21.0-31.0 mmol/L LAB GAP Anion Gap 11.4 Normal 6.0-15.0 LAB CA Calcium 8.3 Low 8.6-10.3 mg/dL LAB TP Total Protein 7.2 Normal 6.4-8.9 g/dL LAB ALB Albumin Level 3.6 Normal 3.5-5.7 g/dL LAB GLOB Globulin 3.6 g/dL LAB AGRATIO Albumin/Globulin Ratio 1.0 LAB BILIT Bilirubin,Total 0.3 Normal 0.3-1.0 mg/dL LAB AST Aspartate Amino Transferase 43 High 13-39 U/L LAB ALT Alanine Aminotransferase 74 High 7-52 U/L LAB ALP Alkaline Phosphatase 175 High 34-104 U/L LAB CRCLPHA Creatinine Clr C alc Pharmacy 48.49 Performed By: #### FE and TI BC, CLEOPATRA, CBC, CMP #### [facility] [address] [place] [address] #### SPE, MITCH SERUM, KAPPA #### [facility] , IRON AND TIBC PROFILE Collected: 02/24/2024 10:03 AM Status: F Source: [facility] TYPE CODE TESTS RESULT OUT OF RANGE REFERENCE UNITS LAB FE Iron 55 Normal 50-212 ug/dL LAB TIBCT Total Iron Binding Capacity 322 Normal 255-450 ug/dL LAB FESAT% % Iron Saturation 17.1 Low 20-50 % LAB TRANS Transferrin 230 Normal 203-362 mg/dL Performed By: #### FE and TI BC, CLEOPATRA, CBC, CMP #### [facility] [address] #### SPE, MITCH SERUM, KAPPA #### [facility] , FERRITIN Collected: 4 10:03 AM Status: F Source: [facility] TYPE CODE TESTS RESULT OUT OF RANGE REFERENCE UNITS LAB CLEOPATRA Ferritin 161.8 Normal 11.0-306.8 ng/mL Result Comment: PERFORMED BY : [place] [address] PATHOLOGIST [employer] DEVELOPMENT MANAGER RONI BERRY M.D. Performed By: #### FE and TI BC, CLEOPATRA, CBC, CMP #### [address] #### SPE, MITCH SERUM, KAPPA #### [facility] , IMMUNOFIXATION,SERUM Collected: 024 10:03 AM Status: F Source: [facility] TYPE CODE TESTS RESULT OUT OF RANGE REFERENCE UNITS LAB MITCH SERUM. Immunofixation, Serum Comment Abnormal Alert . Result Comment: Immunofixati on shows IgG monoclonal protein with kappa light chain specificity. PLEASE NOTE: Samples from patients receiving DARZALEX(R) (daratumumab) or SARCLISA(R)(isatuximab-irfc) treatment can appear as an IgG kappa and mask a complete response (CR). If this patient is receiving these therapies, this MITCH assay interference can be removed by ordering test number [id number]- Immunofixation, Daratumumab-Specific, Serum or [id number]- Immunofixation, Isatuximab-Specific, Serum and submitting a new sample for testing or by calling the lab to add this test to the current sample. LAB IGG Immunoglobulin G 1714 High 586-1602 mg/dL LAB IGA Immunoglobulin A, Serum 519 High 87-352 mg/dL LAB IGM Immunoglobulin M, Serum 86 26-217 mg/dL Result Comment: Performed at : [facility] [address] [id number] Print[employer] Assembly Repairer: Jhoan Rich PhD, Phone: [phone] Performed By: #### FE and TI BC, CLEOPATRA, CBC, CMP #### [address] #### SPE, MITCH SERUM, KAPPA #### [facility] , PROTEIN ELECTROPHORESIS, SERUM Collecte d: 02/24/2024 10:03 AM Status: F Source: [facility] TYPE CODE TESTS RESULT OUT OF RANGE REFERENCE UNITS LAB SPETP Total Protein, Serum 7.4 6.0-8.5 g/dL LAB SPEALB Albumin, Serum 3.3 2.9-4.4 g/dL LAB SPEA1G Pwkix-3-Iawv ulin 0.3 0.0-0.4 g/dL LAB SPEA2G Gmspp-8-Mthq ulin 0.9 0.4-1.0 g/dL LAB SPEBG Beta Globulin 1.2 0.7-1.3 g/dL LAB SPEGG Gamma Globulin 1.7 0.4-1.8 g/dL LAB SPEMS M-Damien 0.9 High Not Observed g/dL LAB SPEGLOB Globulin, Total 4.1 High 2.2-3.9 g/dL LAB SPEAG A/G Ratio 0.8 0.7-1.7 LAB SPENOTE SPE-Note Comment . Result Comment: Protein elec trophoresis scan will follow via computer, mail, or flat ironer delivery. Performed at: [address] [id number] [employer] Assembly Repairer: Jhoan Rich PhD, Phone: [phone] Performed By: #### FE and TI BC, CLEOPATRA, CBC, CMP #### [address] #### SPE, MITCH SERUM, KAPPA #### [facility] , FREE K+L LT CHAINS, QN, S Collected: 10:03 AM Status: F Source: [facility] TYPE CODE TESTS RESULT OUT OF RANGE REFERENCE UNITS LAB KAPPA LTC Free [place] Light Chains, S 234.0 High 3.3-19.4 mg/L LAB LAMBDA LTC Free Lambda Light Chains, S 38.4 High 5.7-26.3 mg/L LAB KL RATIO. [place]/Lambda Ratio, S 6.09 High 0.26-1.65 Result Comment: Performed at : - [facility] [address] [id number] [employer] Assembly Repairer: Jhoan Rich PhD, Phone: [phone] PERFORMED BY: [place] [address] PATHOLOGIST [employer] PR[employer] DEVELOPMENT MANAGER RONI BERRY M.D. Performed By: #### FE and TI BC, CLEOPATRA, CBC, CMP #### [facility] [address] [place] [address] [place] #### SPE, MITCH SERUM, KAPPA #### [facility] , XR BONE SURVEY Observed: 02/02/2024 1:44 PM Status: COMPLETED Source: [facility] [place] [address] [place] [address] XRay Report Signed Patient: Doreen Turcios MR#: [id number] 58 : 1960 Acct:[id number] Age/Sex: 63 / F ADM Date: 02/02/24 Loc: Room: Type: [facility] Attending Dr: Roxane Bills MD Copies to: Roxane Bills MD Ordering Provider: Roxane Bills MD Date of Service: 02/02/24 XR/XR bone survey: D47.2 - Monoclonal gammopathy Plain film bone survey COMPARISON: 02/06/2023 HISTORY: Low back pain. Left hip pain. Monoclonal gammopathy. No lytic lesion identified. The calvarium intact. Mild cervicothoracic and lumbar degenerative changes. The lower lumbar facet degeneration. No acute chest findings. Moderate constipation. Unremarkable pelvis. Unremarkable extremities. No new findings. XR/XR bone survey IMPRESSION: No lytic lesion. Degenerative change. Impression dictated by: Domenico Brown M.D.02/02/2024 1:46 PM Dictation Location: [place] [address] Transcribed By: [facility] 02/02/24 1346 Dictated By: Domenico Brown DO 02/02/24 1344 Signed By: <Electronically signed by Domenico Brown DO in OV> 02/02/24 1346 ALLERGIES DATE TYPE / CODE NAME / CODE REACTION SEVERITY SOURCE 08/08/2024 Drug Allergy/4160 37347(SNOMED CT) morphine/F00 9396637(RXNO RM) Gastrointestinal Upset Unknown [facility] 08/08/2024 Drug Allergy/4160 78231(SNOMED CT) codeine/F006 362789(RXNOR M) Rash, itching Unknown [facility] 08/08/2024 Drug Allergy/4160 79511(SNOMED CT) honey/T01666 2502(RXNORM) Hives, anaphylaxis Unknown [facility] 08/08/2024 Drug Allergy/4160 55852(SNOMED CT) tramadol/F00 9961948(RXNO RM) Hallucinating, hallucinations Unknown [facility] ENCOUNTERS ADMIT/DISCHARGE ACCOUNT NUMBER ADMITTING ENCOUNTER CLASS LOCATION SOURCE 08/31/2024 [id number] [facility] Bills [facility] 08/25/2024/08/26/19 [id number] Ambulatory Building:NOM S SH PULM [facility] 08/22/2024/08/23/19 25 [id number] Ambulatory Building:NOM S SH ENDO [facility] 08/15/2024/08/16/19 25 [id number] Ambulatory PM [facility] ding:PM [facility] 08/11/2024/08/12/19 [id number] Peri Tyson [facility] 07/11/2024 [id number] Truong Ward [facility]:ERIN Garcia [facility] 06/28/2024/06/29/19 [id number] Ambulatory Building:NOM S SC POD [facility] 05/25/2024/05/25/19 25 [id number] Ambulatory Building:NOM S SH ENDO [facility] 04/15/2024/04/15/19 25 [id number] Ambulatory Building:NOM S SC POD [facility] 02/02/2024/02/02/20 24 [id number] Ambulatory Building:NOM S SC POD [facility] 01/20/2024/01/20/20 24 [id number] Ambulatory Building:NOM S SH ENDO [facility] 01/14/2024/01/14/20 24 [id number] Ambulatory Building:NOM S SH PULM [facility] EP[facility] 12/30/2023/12/30/19 24 [id number] [facility] [place] [facility]23/11/24/19 24 [id number] Ambulatory Building:NOM S SC POD [facility] 09/15/2023/09/15/19 24 [id number] Ambulatory Building:NOM S SC POD [facility] EPIC PAYERS ENCOUNTER GUARANTOR PAYER SUBSCRIBER SOURCE 08/31/2024 Doreen [address] [place] [id number]: (HP) Primary Insurance:[employer] [facility] PFFSPolicy Number: [id number] Date:[id number] [address]WU: Doreen Marley: [id number] [place] [id number]: (HP) [facility] 08/31/2024 Secondary Insurance:Self PayPolicy Number: Effective Date:2021-07-18 [facility] DOREEN MARLEY: [id number] [place] [address]Ewg: (HP) [place]: [id number] Date:2023-09-12 DOREEN MARLEY: [id number] [place] [address] [facility] EPIC 08/25/2024 Secondary Insurance:AETNA MEDICARE ADVANTAGEPolicy Number: [id number] Date:2023-10-12 DOREEN VIGILB: [id number] [place] [address] [facility] EPIC 08/22/2024 DOREEN VIGILB: [id number] [place] [address]Hzf: (HP) [place]: [id number] Date:2023-09-12 DOREEN VIGILB: [id number] [place] [address] [facility] EPIC 08/22/2024 Secondary Insurance:AETNA MEDICARE ADVANTAGEPolicy Number: [id number] Date:2023-10-12 DOREEN VIGILB: [id number] [place] [address] [facility] EPIC 08/15/2024 Doreen VigilB: [id number] [place] [address] Primary Insurance:AetnaPolicy Number: Effective Date:9199-36-51Umyp Name:MEDP [id number] ERIC Quintana [address]SB: Doreen VigilB: [id number] [place] [address] [facility] 08/15/2024 Secondary Insurance:MedicaidPoli cy Number: Effective Date:0303-99-91Djop Name:MEDCP [address] [address]VQ: Doreen TurciosDOB: [id number] [place] [address] [facility] 08/11/2024 [place] [address]Noc: (HP) Primary Insurance:Aetna [facility] PFFSPolicy Number: [id number] Date:[id number] [place] [address]ID: Doreen Rojo YaritzaB: [id number] [place] [address]Xjz: (HP) [facility] 08/11/2024 Secondary Insurance:Self PayPolicy Number: Effective Date:2024-08-11 NOT GIVENUNK [facility] 07/11/2024 Doreen Rjoo [id number] [place] [address]Afw: (HP) Primary Insurance:Self PayPolicy Number: Effective Date:2022-07-30 NOT GIVENUNK [facility] 06/28/2024 DOREEN M YARITZAB: [id number] [place] [address]Pfm: (HP) [place]: [id number] Date:2023-09-12 DOREEN M YARITZAB: [id number] [place] [address] [facility] EPIC 06/28/2024 Secondary Insurance:AETNA MEDICARE ADVANTAGEPolicy Number: [id number] Date:2023-10-12 DOREEN M YARITZAB: [id number] [place] [address] [facility] EPIC 05/25/2024 DOREEN Alia VIGILB: [id number] [place] [address]Xnp: (HP) [place]: [id number] Date:2023-09-12 DOREEN Alia VIGILB: [id number] [place] [address] [facility] EPIC 05/25/2024 Secondary Insurance:AETNA MEDICARE ADVANTAGEPolicy Number: [id number] Date:2023-10-12 DOREEN VIGILB: [id number] [place] [address] [facility] EPIC 04/15/2024 DOREEN RAPPJOSHB: [id number] [place] [address]Xqf: (HP) [place]: [id number] Date:2023-09-12 DOREEN Rojo YARITZAB: [id number] [place] [address] [facility] EPIC 04/15/2024 Secondary Insurance:AETNA MEDICARE ADVANTAGEPolicy Number: [id number] Date:2023-10-12 DOREEN Rojo YARITZAB: [id number] [place] [address] [facility] EPIC 02/02/2024 DOREEN Rojo YARITZAB: [id number] [place] [address]Mmc: (HP) [place] Insurance:[place]: [id number] Date:2023-09-12 DOREEN Rojo YARITZAB: [id number] [place] [address] [facility] EPIC 02/02/2024 Secondary Insurance:AETNA MEDICARE ADVANTAGEPolicy Number: [id number] Date:2023-10-12 DOREEN M YARITZAB: [id number] [place] [address] [facility] EPIC 01/20/2024 DOREEN M TAMDOB: [id number] [place] [address]Onw: (HP) [place] Insurance:[place]: [id number] Date:2023-09-12 DOREEN M YARITZAB: [id number] [place] [address] [facility] EPIC 01/20/2024 Secondary Insurance:AETNA MEDICARE ADVANTAGEPolicy Number: [id number] Date:2023-10-12 DOREEN RAPPJOSHB: [id number] [place] [address] [facility] 01/14/2024 DOREEN RAPPCARMELADOB: [id number] [place] [address]Zam: (HP) [place]: [id number] Date:2023-09-12 DOREEN RAPPJOSHB: [id number] [place] [address] [facility] 01/14/2024 Secondary Insurance:AETNA MEDICARE ADVANTAGEPolicy Number: [id number] Date:2023-10-12 DOREEN RAPPJOSHB: [id number] [place] [address] [facility] 12/30/2023 Doreen Rapplin1338 [place] [address]Heo: (HP) Primary Insurance:Aetna [facility] PFFSPolicy Number: [id number] Date:[id number] [address] ERIC [place] [address]MA: Doreen RappJoshB: [id number] [place] [address]Bhf: () [facility] 12/30/2023 Secondary Insurance:MedicaidPoli cy Number: [id number] Date:2023-11-12 Doreen RappJoshB: [id number] [place] [address]Bkw: () [facility] 12/30/2023 Tertiary Insurance:Self PayPolicy Number: Effective Date:2023-11-12 [facility]23 DOREEN M YARITZAB: [id number] [place] [address]Vqa: (HP) [place] Insurance:[place]: [id number] Date:2023-09-12 DOREEN MARLEY: [id number] [place] [address] [facility] EPIC 11/24/2023 Secondary Insurance:AETNA MEDICARE ADVANTAGEPolicy Number: [id number] Date:2023-10-12 DOREEN MARLEY: [id number] [place] [address] [facility] EPIC 09/15/2023 DOREEN MARLEY: [id number] [place] [address]Ext: (HP) Primary Insurance:[place]: [id number] Date:2023-09-12 DOREEN MARLEY: [id number] [place] [address] [facility] EPIC
--- NOTE | 2024-09-01 09:00 | MR_ITS ---
The [address] [address] Patient Name: DOREEN CHACKO MRN: [id number] date: 1960 Sex: F Assigned Patient Location: MRI Current Patient Location: MRI Accession/Order Number: [id number] Exam Date: 09/01/2024 10:59 Report Date: 09/01/2024 11:58 At the request of: KARSTEN BARRERA MD Procedure: MR lumbar spine wo con MR lumbar spine wo con 09/01/2024 9:49 AM SIGNS AND SYMPTOMS: ^Lumbar Stenosis With Neuro Claudication PROTOCOL: Multiplanar multisequence MR images of the lumbar spine without IV contrast COMPARISON: None. FINDINGS: The bones of the lumbar spine are in anatomic alignment. There is preservation of vertebral body heights. There is disc desiccation and mild intervertebral disc height loss at L5-S1. The marrow signal is within normal limits. The conus terminates at the inferior endplate of the L1 vertebral body level. There is a small lipoma along the filum terminale which is a normal variant. No epidural or paraspinous fluid collection is appreciated. At T12-L1: There is a normal disc, central canal, and neural foramen. At L1-L2: There is a normal disc, central canal, and neural foramen. At L2-L3: There is a normal disc, central canal, and neural foramen. At L3-L4: There is facet hypertrophy with ligament flavum thickening contributing to mild spinal canal stenosis. No significant neural foraminal narrowing. At L4-L5: There is a broad-based disc bulge with facet hypertrophy. There is mild spinal canal stenosis with mild to moderate left and mild right neural foraminal stenosis. At L5-S1: Facet hypertrophy bilaterally contributing to moderate right and mild left neural foraminal narrowing without spinal canal stenosis. MR/MR lumbar spine wo con IMPRESSION: At L3-L4: There is facet hypertrophy with ligament flavum thickening contributing to mild spinal canal stenosis. No significant neural foraminal narrowing. At L4-L5: There is a broad-based disc bulge with facet hypertrophy. There is mild spinal canal stenosis with mild to moderate left and mild right neural foraminal stenosis. At L5-S1: Facet hypertrophy bilaterally contributing to moderate right and mild left neural foraminal narrowing without spinal canal stenosis. Impression dictated by: Harvey Barry M.D. 09/01/2024 11:58 AM Dictation Location: [place] [address] Electronically authenticated by: [id number] Y Date: 09/01/2024 11:58
== END 2024-09-01 08:56 | disposition home or self-care (01) ==
LOC: MRI 08:55
PROVIDERS: Visit Provider Anesthesiology
DX: M48.062 Spinal stenosis, lumbar region with neurogenic claudication (principal); M51.369 Other intervertebral disc degeneration, lumbar region without mention of lumbar back pain or lower extremity pain
CPT/HCPCS: 72148

== ENCOUNTER 2024-09-15 09:33 | Outpatient (OUT) | payer MEDICARE, MEDICAID, SELFPAY ==
--- OUTSIDE RECORDS SUMMARY | 2021-06-20 06:46 | XMS_ITS | Continuity of Care Document ---
Author Organization [facility] Address [address] [place] [address] Phone Care Team Providers Care Central Office Maintainer Name Role Phone Josafat Motley Unavailable Unavailable [...] Diagnoses Date Provider Providers Copied on Encounter [facility], [address], [place], [id number] , [place] tel: [phone] [facility] No Information 2 Visci DO Josafat. [address], [place], [id number] , [place]. tel: [phone] OFFICE/OUTPA TIENT VISIT, [facility], [address], [place], [id number] , [place] tel: [phone] [facility] Med Refills (chief complaint) Body mass index [BMI] 45.0-49.9, adultCOPD mixed typeEssential hypertensionLocalize d swelling, mass and lump, right lower limb 1 Pavlock DO Max. [address], [place], [id number] , [place]. tel: [phone] [facility], [address] [place] [address], [id number] , [place] tel: [phone] [facility] No Information 1 Pavlock DO Max. [address], [place], [id number] , [place]. tel: [phone] [facility], [address], [place], [id number] , [place] tel: [phone] [facility] No Information 1 Pavlock DO Max. [address], [place], [id number] , [place]. tel: [phone] [facility], [address] [place] [address], [id number] , [place] tel: [phone] [facility] No Information 1 Pavlock DO Max. [address] [place] [address], [id number] , [place]. tel: [phone] OFFICE/OUTPA TIENT VISIT, [facility], [address], [place], [id number] , [place] tel: [phone] [facility] Medication (chief complaint)N europathy (chief complaint) NeuropathyBody mass index [BMI]40.0-44.9, adult Oct- 1 [facility]. [address], [place], [id number] , [place]. tel: [phone] OFFICE/OUTPA TIENT VISIT, [facility], [address], [place], [id number] , [place] tel: [phone] [facility] check up (chief complaint) Body mass index [BMI]40.0-44.9, adultChronic low back pain, unspecified back pain laterality, unspecified whether sciatica presentLocalized swelling, mass and lump, right lower limbRash 1 [facility]. [address], [place], [id number] , [place]. tel: [phone] OFFICE/OUTPA TIENT VISIT, [facility], [address] [place] [address], [id number] , [place] tel: [phone] [facility] check up (chief complaint) Body mass index [BMI]40.0-44.9, adultPhlebitisType 2 diabetes mellitus with diabetic neuropathy, with long-term current use of insulinRash 1 [facility]. [address], [place], [id number] , [place]. tel: [phone] [facility], [address] [place] [address], [id number] , [place] tel: [phone] [facility] No Information 1 [facility] DO Li. [address] [place] [address], [id number] , [place]. tel: [phone] OFFICE/OUTPA TIENT VISIT, [facility], [address] [place] [address], [id number] , [place] tel: [phone] [facility] check up (chief complaint)d iabetes (chief complaint) Body mass index [BMI] 45.0-49.9, adultRashType 2 diabetes mellitus with diabetic neuropathy, with long-term current use of insulinWound of right lower extremity, subsequent encounter 1 [facility]. [address], [place], [id number] , [place]. tel:[phone] [facility], [address] [place] [address], [id number] , [place] tel:[phone] [facility] No Information 1 [facility] Max. [address] [place] [address], [id number] , [place]. tel:+ [phone] OFFICE/OUTPA TIENT VISIT, [facility], [address] [place] [address], [id number] , [place] tel:[phone] [facility] f/u pain/lab draw (chief complaint)R ramiro (chief complaint) Serum potassium elevatedBody mass index [BMI] 45.0-49.9, adultRash 1 [facility]. [address] [place] [address], [id number] , [place]. tel:[phone] OFFICE/OUTPA TIENT VISIT, [facility], [address] [place] [address], [id number] , [place] tel:[phone] [facility] med refill (chief complaint)d iabetes (chief complaint) Type 2 diabetes mellitus with diabetic neuropathy, with long-term current use of insulinNeuropathySer um potassium elevatedWound of right lower extremity, subsequent encounter 1 [facility]. [address] [place] [address], [id number] , [place]. tel:+ [phone] OFFICE/OUTPA TIENT VISIT, [facility], [address] [place] [address], [id number] , [place] tel:+ [phone] [facility] ER follow up (chief complaint) Body mass index [BMI]40.0-44.9, adultType 2 diabetes mellitus with diabetic neuropathy, with long-term current use of insulinPhlebitis 1 [facility] Max. [address] [place] [address] [place], [id number] , [place]. tel: [phone] OFFICE/OUTPA TIENT VISIT, [facility], [address] [place] [address], [id number] , [place] tel: [phone] [facility] f/u right leg (chief complaint)M usculoskele reinaldo pain (chief complaint) Essential hypertensionType 2 diabetes mellitus with diabetic neuropathy, with long-term current use of insulinMixed hyperlipidemiaLocali zed swelling, mass and lump, right lower limb 1 Pavlock DO Max. [address] [place] [address], [id number] , [place]. tel: [phone] OFFICE/OUTPA TIENT VISIT, [facility], [address] [place] [address], [id number] , [place] tel: [phone] [facility] f/u leg pain (chief complaint)M usculoskele reinaldo pain (chief complaint) Body mass index [BMI] 45.0-49.9, adultLocalized swelling, mass and lump, right lower limb 1 Pavlock DO Max. [address] [place] [address], [id number] , [place]. tel: [phone] OFFICE/OUTPA TIENT VISIT, [facility], [address] [place] [address], [id number] , [place] tel: [phone] [facility] est care (chief complaint)M usculoskele reinaldo pain (chief complaint)d iabetes (chief complaint) Posterior right knee painEssential hypertensionCOPD mixed typeMixed hyperlipidemiaInsomn ia, unspecified typeNeuropathyType 2 diabetes mellitus with diabetic neuropathy, with long-term current use of insulinLong term (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Hypothyroidis m, unspecified typeChronic low back pain, unspecified back pain laterality, unspecified whether sciatica presentOther chronic pain 1 Pavlock DO Max. [address], [place], [id number] , [place]. tel: [phone] [facility], [address], [place], [id number] , [place] tel: [phone] Dental Clinic Dental examination 4 John DMD Kirstin. [address], [place], [id number] , [place]. tel:+ [phone] OFFICE/OUTPA TIENT VISIT, EST [facility], [address], [place], [id number] , [place] tel: [phone] [facility] Influenza Vaccine 3 Dialloi DO Josafat. [address], [place], [id number] , [place]. tel: [phone] Family History Family Member Type Diagnosis Age At Onset No Information Immunizations Vaccine Date Status Comments Pneumo (2 yrs or older)(PPV) administered Source: New Immunization Record Flu (split) (3 yrs or older) administered Source: New Immunization Record Payers Payer name Insurance type Covered alliance party ID Authoriza tion(s) Medicaid [facility] [id number] Social History Type Description Quantity Date Captured [...] Goal Influenza Vaccine. Due on due Goal ECG. Due on due Goal Dental exam. Due on due Goal Hemoglobin A1C. Due on due Goal Foot exam. Due on due Goal Dilated eye exam. Due on Feb due Goal Pneumococcal vaccine due Goal Urine microalbumin. Due on due Goal FOBT. Due on due Goal Dietary management education , guidance, and counseling completed Goal Tdap. Due on due Goal Diabetes screening. Due on due Goal Zoster vaccine (). Due on due Goal FOBT. Due on due Goal Dilated eye exam. Due on Jan due Goal Depression screening. Due on due Goal Urine microalbumin. Due on due Goal Urinalysis. Due on [...] vaccine due Goal Urine microalbumin. Due on due [...] eye exam. Due on Jan due Goal Dietary management education , guidance, [...] completed Goal ECG. Due on due Goal Colonoscopy. [...] Urine microalbumin. Due on A due Goal Dietary management [...] eye exam. Due on Nov due Goal Urinalysis. Due on due Goal [...] counseling completed Goal Pneumococcal vaccine due Goal Hemoglobin A1C. [...] Zoster vaccine (1st). Due on due Goal Diabetes screening. Due [...] eye exam. Due on August due Goal Lipid panel. Due on due Goal Urine microalbumin. Due on due Goal Zoster vaccine (). Due on due Goal Mammogram. Due on due Goal Urinalysis. Due on due Goal Tdap. Due on due Goal Foot exam. Due on due Goal FOBT. Due on due Goal Dietary management education [...] eye exam. Due on August due Goal FOBT. Due on due Goal [...] painful at the end of every day [facility] diabetes The problem is g etting [...] refill. Pt states she needs refills on [place] and Vitamin D. Pt states that she [...] Álvarez ,above was reviewed and agreed with [facility] Musculoskeletal pain It occurs c onstantly and [...] she had her U/S orders performed [place] [facility] [place] Thursday. Reports are in pt's chart. Pt states that nothing is changed with her leg/pain. No worsening symptoms, nothing improved. Pt states she will need a refill on her [place] by Thursday. TAWANA Adkins f/u leg pain [...] Dominance: right. est care [facility]. Pt c/o R LE pain and [...]
--- OUTSIDE RECORDS SUMMARY | 2024-09-15 09:36 | XMS_ITS | Clinical Summary ---
Author Organization [facility] tem Address [id number] [address] [place] [address] Care Team Providers Care Network Support Manager Name Role Phone Svetlana Garcia DO Primary Care Provider [phone] Social History Tobacco Use Types Packs/Day Years Used Date Smoking Tobacco: Never Assessed Childcare Answer Date Recorded Childcare Unknown 09/22/2018 Employment Answer Date Recorded Employment Unknown 09/22/2018 Comments Unknown Sex and Gender Information Value Date Recorded Sex Assigned at Not on file Legal Sex Female 12:11 PM EDT Gender Identity Not on file Sexual Orientation Not on file Plan of Treatment Health Maintenance Due Date Last Done Comments Depression Screening 1970 Tobacco Screening 1970 Adult BMI Screening 1976 DTaP,Tdap and Td Vaccines (1 - Tdap) 1977 Zoster (Shingles) Vaccine (1 of 2) 2008 Fall Risk Screening 10/09/2023 Influenza Vaccine 12/12/2024 Medical Devices Not on file Insurance [facility] MEDICAID Care Teams Network Support Manager Relationship Specialty Start Date End Date Svetlana Garcia DO PCP - General Internal Medicine 09/21/20
--- OUTSIDE RECORDS SUMMARY | 2024-09-15 09:36 | XMS_ITS | Encounter Summary ---
Author Organization [facility] Address [address] [place] [address] Care Team Providers Care Redrying Machine Operator Name Role Phone Giovanni Moreno MD Primary Care Provider [phone] Encounter Details Date Type Department Care Team (Late Contact Info) Description 02/02/2024 External Result Encounter [facility] External Department Unsolicited Roxane Bills MD [address] [place] [address] Social History Tobacco Use Types Packs/Day Years Used Date Smoking Tobacco: Never Passive Smoke Exposure: Never Smokeless Tobacco: Never Alcohol Use Standard Drinks/Week Comments Never 0 (1 standard drink = 0.6 oz pure alcohol) Caffeine intake: 2-3 cups per day Comments Unknown Sex and Gender Information Value Date Recorded Sex Assigned at Not on file Legal Sex Female 7:13 PM EDT Gender Identity Not on file Sexual Orientation Not on file documented as of this encounter Plan of Treatment Upcoming Encounters Date Type Department Care Team ([facility] Contact Info) Description 11/21/2024 11:30 AM EDT Office Visit [facility] [address] [place] [address] Jeannie Aguilar MD [address] [place] [address] 03/07/2025 2:00 PM EST Office Visit [facility] [address] [place] [address] Svetlana Garcia DO [address] [place] [address] documented as of this encounter Procedures Procedure Name Priority Date/Time Associated Diagnosis Comments XR BONE SURVEY COMPLETE 02/02/2024 1:44 PM EDT documented in this encounter Results * XR bone survey complete (02/02/2024 1:44 PM EDT) Anatomical Region Laterality Modality Body, Upper Extremities, Low er Extremities, Spine, Head, Neck Radiographic Imaging 02/02/2024 1:44 PM EDT Impressions 02/02/2024 1:49 PM EDT No lytic lesion. Degenerative change. Impression dictated by: Domenico Brown M.D.02/02/2024 1:46 PM Dictation Location: [place] [address] Transcribed By: [facility] 02/02/24 1346 Dictated By: Domenico Brown DO 02/02/24 1344 Signed By: <Electronically signed by Domenico Brown DO in OV> 02/02/24 1346 Narrative 02/02/2024 1:49 PM EDT [facility] Main [address] [address] XRay Report Signed Patient: Kelsea Turcios MR#: [id number] 58 : 1960 Acct:[id number] Age/Sex: 63 / F ADM Date: 02/02/24 Loc: Room: Type: [facility] Attending Dr: Roxane Bills MD [...] extremities. No new findings. XR/XR bone survey Procedure Note Radiology, RadiologistMD - 02/02/2024 [facility] Main [place] [address] [place] [address] XRay Report Signed Patient: Kelsea Turcios MMR#: [id number] 58 : 9Acct:[id number] Age/Sex: 63 / FADM Date: 02/02/24 Loc: XT Room:Type: [facility] Attending Dr: Roxane Bills MD Copies to: Roxane Bills MD Ordering Provider: Roxane Bills MD Date of Service: 02/02/24 XR/XR bone survey: D47.2 - Monoclonalgammopathy Plain film bone survey COMPARISON: 02/06/2023 HISTORY: Low back pain. Left hip pain. Monoclonal gammopathy. No lytic lesion identified. The calvarium intact. Mild cervicothoracicand lumbar degenerative changes. The lower lumbar facet degeneration. No acute chest findings.Moderate constipation. Unremarkable pelvis. Unremarkable extremities. No new findings. XR/XR bone survey IMPRESSION: No lytic lesion. Degenerative change. Impression dictated by: Domenico Brown M.D.02/02/2024 1:46 PM Dictation Location: [place] [address] Transcribed By: [facility] 02/02/24 1346 Dictated By: Domenico Brown DO 02/02/24 1344 Signed By: <Electronically signed by Domenico Brown DO in OV> 02/02/24 1346 us Roxane Bills MD IMG XR PROCEDURES Final Result documented in this encounter Visit Diagnoses Not on filedocumented in this encounter Care Teams Redrying Machine Operator Relationship Specialty Start Date End Date Giovanni Moreno MD [address] [place] [address] PCP - General Family Medicine 09/18/22 documented as of this encounter
--- OUTSIDE RECORDS SUMMARY | 2024-09-15 09:37 | XMS_ITS | Encounter Summary ---
Author Organization [facility] Address [address] [place] [address] Care Team Providers Care Mid Level Developer Name Role Phone Giovanni Moreno MD Primary Care Provider [phone] Reason for Visit * Reason Comments Med Refill Encounter Details Date Type Department Care Team (Late Contact Info) Description 12/05/2022 Refill [facility] [address] [place] [phone] Svetlana Garcia, DO [address] [place] [address] Chronic obstructive pulmonary disease, unspecified (CMS/HCC) Social History Tobacco Use Types Packs/Day Years [...] on file documented as of this encounter Miscellaneous Notes * Telephone Encounter - Annelise Ham NP - 12/05/2022 12:14 PM EDT Approving, but needs appt for additional refills. documented in this encounter Plan of Treatment Upcoming Encounters Date Type Department Care Team (Late Contact Info) Description 11/21/2024 11:30 AM EDT Office Visit [facility] [address] [place] [address] Jeannie Aguilar MD [address] [place] [address] 03/07/2025 2:00 PM EST Office Visit [facility] [address] [facility] [place] [address] Svetlana Garcia DO [address] [place] [address] documented as of this encounter Visit Diagnoses Diagnosis Chronic obstructive pulmonary disease, unspecified documented in this encounter Care Teams Mid Level Developer Relationship Specialty Start Date End Date Giovanni Moreno MD [address] [place] [address] PCP - General Family Medicine 09/18/22 documented as of this encounter
--- OUTSIDE RECORDS SUMMARY | 2024-09-15 09:37 | XMS_ITS | Encounter Summary ---
Author Organization [facility] Address [address] [place] [address] Care Team Providers Care Registered Dietician Name Role Phone Giovanni Moreno MD Primary Care Provider [phone] Encounter Details Date Type Department Care Team (Late Contact Info) Description 09/02/2022 Abstract [facility] [address] [place] [phone] Lien Oglesby MA Social History Tobacco Use Types Packs/Day Years Used Date Smoking Tobacco: Never Assessed Comments Unknown Sex and Gender Information Value Date Recorded Sex Assigned at Not on file Legal Sex Female 7:13 PM EDT Gender Identity Not on file Sexual Orientation Not on file documented as of this encounter Plan of Treatment Upcoming Encounters Date Type Department Care Team (Late Contact Info) Description 11/21/2024 11:30 AM EDT Office Visit [facility] [address] [place] [address] Jeannie Aguilar MD [address] [place] [address] 03/07/2025 2:00 PM EST Office Visit [facility] [address] [place] [phone] Svetlana Garcia DO [address] [place] [address] documented as of this encounter Visit Diagnoses Not on filedocumented in this encounter Care Teams Registered Dietician Relationship Specialty Start Date End Date Giovanni Moreno MD [address] [place] [address] PCP - General Family Medicine 09/18/22 documented as of this encounter
--- OUTSIDE RECORDS SUMMARY | 2024-09-15 09:37 | XMS_ITS | Encounter Summary ---
Author Organization [facility] Address [address] [place] [address] Care Team Providers Care Deli/Bakery Associate Name Role Phone Giovanni Moreno MD Primary Care Provider [phone] Encounter Details Date Type Department Care Team ([facility] Contact Info) Description 09/18/2022 Abstract [facility] [address] [facility] [address] [place] [address] Mack Pride DPM [address] [address] Social History Tobacco Use Types Packs/Day Years Used Date Smoking Tobacco: Never Smokeless Tobacco: Never Tobacco Cessation:Counseling Given: Not Answered Alcohol Use Standard Drinks/Week Comments Never 0 [...] Upcoming Encounters Date Type Department Care Team ([facility] Contact Info) Description 11/21/2024 11:30 AM EDT Office Visit [facility] [address] [place] [address] Jenanie Aguilar MD [address] [place] [address] 03/07/2025 2:00 PM EST Office Visit [facility] [address] [place] [address] Svetlana Garcia, DO [address] [place] [address] documented as of this encounter Visit Diagnoses Not on filedocumented in this encounter Care Teams Deli/Bakery Associate Relationship Specialty Start Date End Date Giovanni Moreno MD [address] [place] [address] PCP - General Family Medicine 09/18/22 documented as of this encounter
--- OUTSIDE RECORDS SUMMARY | 2024-09-15 09:37 | XMS_ITS | Encounter Summary ---
Author Organization [facility] Address [address] [place] [address] Care Team Providers Care Property Worker Name Role Phone Giovanni Moreno MD Primary Care Provider [phone] Reason for Visit * Reason Comments Med Refill Encounter Details Date Type Department Care Team (Late Contact Info) Description 01/24/2023 Refill [facility] [address] [place] [address] Mack Pride DPM [address] [address] Diabetes mellitus due to underlying condition with diabetic polyneuropathy, with long-term current use of insulin ([facility]) (Primary Dx) Social History Tobacco Use Types Packs/Day Years [...] 11:30 AM EDT Office Visit [facility] [address] [place] [address] Jeannie Aguilar MD [address] [place] [address] 03/07/2025 2:00 PM EST Office Visit [facility] [address] [place] [address] Svetlana Garcia DO [address] [place] [address] documented as of this encounter Visit Diagnoses Diagnosis Diabetes 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
--- OUTSIDE RECORDS SUMMARY | 2024-09-15 09:37 | XMS_ITS | Encounter Summary ---
Author Organization [facility] Address [address] [place] [address] Care Team Providers Care Rehabilitation Director Name Role Phone Giovanni Moreno MD Primary Care Provider [phone] Encounter Details Date Type Department Care Team (Late Contact Info) Description 02/06/2023 External Result Encounter [facility] External Department Unsolicited Roxane Bills MD [address] [place] [address] Social History Tobacco Use Types [...] Upcoming Encounters Date Type Department Care Team ([facility] Contact Info) Description 11/21/2024 11:30 AM EDT Office Visit [facility] [address] [place] [phone] Jeannie Aguilar MD [address] [place] [address] 03/07/2025 2:00 PM EST Office Visit [facility] [address] [place] [phone] Svetlana Garcia DO [address] [place] [address] documented as of this encounter Procedures Procedure Name Priority Date/Time Associated Diagnosis Comments XR BONE SURVEY COMPLETE 02/06/2023 4:06 PM EDT documented in this encounter Results * XR bone survey complete (02/06/2023 4:06 PM EDT) Anatomical Region Laterality Modality Body, Upper Extremities, Low er Extremities, Spine, Head, Neck Radiographic Imaging 02/06/2023 4:06 PM EDT Impressions 02/24/2023 12:16 PM EST No lytic lesions. Impression dictated by: Domenico Brown M.D.02/06/2023 4:08 PM Dictation Location: [place] [address] Transcribed By: [facility] 02/06/23 1608 Dictated By: Domenico Brown DO 02/06/23 1606 Signed By: <Electronically signed by Domenico Brown DO in OV> 02/06/23 1608 Narrative 02/24/2023 12:16 PM EST [address] [address] XRay Report Signed Patient: Kelsea Turcios MR#: [id number] 58 : 1960 Acct:[id number] Age/Sex: 62 / F ADM Date: 02/06/23 Loc: Room: Type: [facility] Attending Dr: Roxane Bills MD Copies to: Roxane Bills MD Ordering Provider: Roxane Bills MD Date of Service: 02/06/23 XR/XR bone survey: MGUS Plain film bone survey HISTORY: Increased skeletal pain. MGUS. COMPARISON: 08/22/2021 No lytic or sclerotic lesion. Diffuse osteopenia. No acute fracture or dislocation. Mild scoliosis. Similar mild spinal degeneration. Similar left basilar lung scarring. XR/XR bone survey Procedure Note Radiology, Radiologist, - 02/24/2023 [facility] [address] [address] XRay Report Signed Patient: Kelsea Turcios MMR#: [id number] [birth year] : 9Acct:[id number] Age/Sex: 62 / FADM Date: 02/06/23 Loc: XT [facility] Att[facility] Dr: Roxane Bills MD Copies to: Roxane Bills MD Ordering Provider: Roxane Bills MD Date of Service: 02/06/23 XR/XR bone survey: MGUS Plain film bone survey HISTORY: Increased skeletal pain. MGUS. COMPARISON: 08/22/2021 No lytic or sclerotic lesion. Diffuse osteopenia. No acute fracture ordislocation. Mild scoliosis. Similar mild spinal degeneration. Similar left basilar lungscarring. XR/XR bone survey IMPRESSION: No lytic lesions. Impression dictated by: Domenico Brown M.D.02/06/2023 4:08 PM Dictation Location: [place] [address] Transcribed By: [facility] 02/06/23 1608 Dictated By: Domenico Brown DO 02/06/23 1606 Signed By: <Electronically signed by Domenico Brown DO in OV> 02/06/23 1608 us Roxane Bills MD IMG XR PROCEDURES Final Result documented in this encounter Visit Diagnoses Not on filedocumented in this encounter Care Teams Rehabilitation Director Relationship Specialty Start Date End Date Giovanni Moreno MD [address] [place] [address] PCP - General Family Medicine 09/18/22 documented as of this encounter
--- OUTSIDE RECORDS SUMMARY | 2024-09-15 09:37 | XMS_ITS | Encounter Summary ---
Author Organization [facility] Address [address] [place] [address] Care Team Providers Care Compactor Driver Name Role Phone Giovanni Moreno MD Primary Care Provider + [phone] Reason for Visit * Reason Comments Med Refill Encounter Details Date Type Department Care Team ([facility] Contact Info) Description 09/25/2022 Refill [facility] [address] [place] [address] Mack Pride DPM [address] [address] Social History Tobacco Use Types [...] 11/21/2024 11:30 AM EDT Office Visit [facility] [address] [place] [phone] Jeannie Aguilar MD [address] [place] [address] 03/07/2025 2:00 PM EST Office Visit [facility] [address] [place] [address] Svetlana Garcia, DO [address] [facility] [place] [address] documented as of this encounter Visit Diagnoses Not on filedocumented in this encounter Care Teams Compactor Driver Relationship Specialty Start Date End Date Giovanni Moreno MD [address] [facility] [place] [address] PCP - General Family Medicine 09/18/22 documented as of this encounter
--- OUTSIDE RECORDS SUMMARY | 2024-09-15 09:37 | XMS_ITS | Encounter Summary ---
Author Organization [facility] Address [address] [place] [address] Care Team Providers Care Distribution Operation Supervisor Name Role Phone Giovanni Moreno MD Primary Care Provider + [phone] Reason for Visit * Reason Comments Med Refill Encounter Details Date Type Department Care Team ([facility] Contact Info) Description 09/09/2024 Refill [facility] [address] [place] [phone] Jeannie Aguilar MD [address] [place] [address] Type 2 diabetes mellitus with hyperglycemia, with long-term current use of insulin ([facility]) Social History Tobacco Use Types Packs/Day Years [...] encounter Miscellaneous Notes * Telephone Encounter - Isela Trammell LPN - 09/12/2024 8:36 AM EDT MEDICATION SENT TO PHARMACY. documented in this encounter Plan of Treatment Upcoming Encounters Date Type Department Care Team ([facility] Contact Info) Description 11/21/2024 11:30 AM EDT Office Visit [facility] [address] [place] [address] Jeannie Aguilar MD [address] [place] [address] 03/07/2025 2:00 PM EST Office Visit [facility] [address] [facility] [place] [address] Svetlana Garcia DO [address] [facility] [place] [address] documented as of this encounter Visit Diagnoses Diagnosis Type 2 diabetes mellitus with hyperglycemia, with long-term current use of insulin ([facility]) documented in this encounter Care Teams Distribution Operation Supervisor Relationship Specialty Start Date End Date Giovanni Moreno MD [address] [place] [address] PCP - General Family Medicine 09/18/22 documented as of this encounter
--- OUTSIDE RECORDS SUMMARY | 2024-09-15 09:37 | XMS_ITS | Clinical Summary ---
Author Organization [facility] Healthcare Address [address] [place] [address] Care Team Providers Care Sitecore Developer Name Role Phone Giovanni Moreno MD Primary Care Provider [phone] Allergies Active Allergy Reactions Criticality Noted Date Comments Codeine Itching,Rash Low 09/22/2022 Honey Anaphylaxis,Hives High 09/08/2019 Morphine Rash Low 09/22/2022 Gastrointestinal Upset Tramadol Hallucinations Low 09/02/2023 Medications amLODIPine (Norvasc) 10 MG tablet Take 10 mg by mouth Daily 023 Active Rexulti 4 MG tablet Take 1 tablet by mouth Daily 023 Active Coreg 25 MG tablet Take 25 mg by mouth every 12 (twelve) hours Active Cholecalciferol (Vitamin D) 50 MCG (1999) capsule Take 1 capsule by mouth 1 (one) time each day at the same time Active colestipol (Colestid) 1 g tablet Take 2 g by mouth 1 (one) time each day at the same time Active dicyclomine (Bentyl) 20 MG tablet Take 20 mg by mouth as needed in the morning and 20 mg as needed at noon and 20 mg as needed in the evening. 023 Active DULoxetine (Cymbalta) [address] capsule Take 60 mg by mouth Daily 023 Active sucralfate (Carafate) 1 g tablet every 12 (twelve) hours Active oxybutynin XL (Ditropan XL) 10 MG 24 hr tablet 1 (one) time each day at the same time Active omeprazole (PriLOSEC) [address] capsule 1 (one) time each day at the same time Active levothyroxine (Synthroid, Levoxyl) 75 MCG tablet 022 Active fluticasone (Flonase) 50 MCG/ACT nasal sprayIndications :Chronic obstructive pulmonary disease, unspecified USE 1 SPRAY INTO EACH NOSTRIL EVERY DAY FOR 30 DAYS 16 mL 023 Active HYDROcodone-acet aminophen ([place]) 5-325 MG tablet 023 Active hydrOXYzine HCl (Atarax) 10 MG tablet 023 Active prednisoLONE acetate (Pred-Forte) 1 % ophthalmic suspension 023 Active tiZANidine (Zanaflex) 4 MG tablet Take 4 mg by mouth in the evening Active Refresh Tears 0.5 % ophthalmic solution 023 Active Continuous Blood Gluc Sensor (FreeStyle Alfredo 2 Sensor) [facility] 024 Active BD Pen Needle Micro U/F 32G X [facility] Active Fetzima 120 MG extended release capsule 024 Active mirtazapine (Remeron) 45 MG tablet 024 Active olopatadine (Patanol) 0.1 % ophthalmic solution 024 Active furosemide (Lasix) 40 MG tablet 024 Active diclofenac sodium 1 % gelIndications:D iabetes mellitus due to underlying condition with diabetic polyneuropathy, with long-term current use of insulin ([facility]) APPLY 4 GRAMS TO AFFECTED AREA 4 TIMES DAILY 100 g 3 024 Active aspirin 81 MG EC tablet 024 Active clobetasol (Temovate) 0.05 % cream 024 Active cloNIDine (Catapres) 0.1 MG tablet 024 Active loperamide (Imodium A-D) 2 MG tablet 1 tablet 024 Active zonisamide (Zonegran) 25 MG capsule 024 Active gabapentin (Neurontin) 600 MG tablet 024 Active budesonide-formo terol (Symbicort) 160-4.5 MCG/ACT inhalerIndicatio ns:Chronic obstructive pulmonary disease, unspecified COPD type (CMS/HCC) Inhale 2 puffs in the morning and 2 puffs before bedtime. Rinse mouth with water after use to reduce aftertaste and incidence of candidiasis. Do not swallow.. 1 each 024 2024 Active ipratropium-albu terol (Duo-Neb) 0.5-2.5 mg/3 mL nebulizer solutionIndicati ons:Chronic obstructive pulmonary disease, unspecified COPD type (CMS/HCC) Take 3 mL by nebulization 4 (four) times a day as needed for wheezing or shortness of breath 360 mL 024 2024 Active montelukast (Singulair) 10 MG tabletIndication s:Chronic obstructive pulmonary disease, unspecified COPD type (CMS/HCC) Take 1 tablet (10 mg) by mouth 1 (one) time each day at the same time 30 tablet 5 Active theophylline ER (Nishant-24) 200 MG 24 hr capsuleIndicatio ns:Chronic obstructive pulmonary disease, unspecified COPD type (CMS/HCC) Take 1 capsule (200 mg) by mouth 1 (one) time each day at the same time 30 capsule 5 Active insulin lispro-aabc (Lyumjev KwikPen) 100 UNIT/ML penIndications:T ype 2 diabetes mellitus with hyperglycemia, with long-term current use of insulin ([facility]) Inject 40 Units under the skin in the morning and 40 Units at noon and 40 Units in the evening. Inject with meals. 36 pen 1 025 2024 Active albuterol HFA 90 mcg/act inhalerIndicatio ns:Chronic obstructive pulmonary disease, unspecified COPD type (CMS/HCC) INHALE 2 PUFFS IN THE MORNING AND 2 PUFFS IN THE EVENING AND 2 PUFFS BEFORE BEDTIME. 18 g 5 025 Active insulin glargine (Lantus SoloStar) 100 UNIT/ML penIndications:T ype 2 diabetes mellitus with hyperglycemia, with long-term current use of insulin ([facility]) Inject 50 Units under the skin in the morning. 45 mL 1 025 2024 Active insulin aspart (NovoLOG FLEXPEN) 100 UNIT/ML penIndications:T ype 2 diabetes mellitus with hyperglycemia, with long-term current use of insulin ([facility]) Inject 40 Units under the skin in the morning and 40 Units at noon and 40 Units in the evening. Inject before meals. 120 mL 1 025 Active dapagliflozin (Farxiga) 10 MGIndications:Ty pe 2 diabetes mellitus with hyperglycemia (CMS/[facility]) Take 1 tablet (10 mg) by mouth Daily 90 tablet 1 025 Active Continuous Glucose Sensor (FreeStyle Alfredo 3 Plus Sensor) miscIndications: Type 2 diabetes mellitus with hyperglycemia, with long-term current use of insulin ([facility]) 1 Bar Every 15 Days 6 each 1 025 2024 Active semaglutide (Ozempic, 0.25 or 0.5 MG/DOSE,) 2 MG/1.5ML solution pen-injectorIndi cations:Type 2 diabetes mellitus with hyperglycemia, with long-term current use of insulin ([facility]) Inject 0.5 mg under the skin 1 (one) time per week 4.5 mL 1 025 2024 Active busPIRone (Buspar) 5 MG tablet TAKE 1 TABLET BY ORAL ROUTE 1 TIMES PER DAY IN THE AFTERNOON 025 Active hydrOXYzine HCl (Atarax) 25 MG tablet Take 25 mg by mouth 3 (three) times a day as needed for anxiety 025 Active Ozempic, 0.25 or 0.5 MG/DOSE, 2 MG/3ML solution pen-injector 025 Active Continuous Glucose Furnace Process Plant Operator (FreeStyle Alfredo 3 [place]) deviceIndication s:Type 2 diabetes mellitus with hyperglycemia, with long-term current use of insulin ([facility]) USE DIRECTED 1 each 025 Active benzonatate (Tessalon) 100 MG capsule 023 2024 Discontinued(M ed list cleanup) triamcinolone (Kenalog) 0.1 % ointment 024 2024 Discontinued( ed list cleanup) guaiFENesin (Mucinex) 600 MG 12 hr tabletIndication s:Chronic obstructive pulmonary disease, unspecified COPD type ([facility]) Take 1 tablet (600 mg) by mouth in the morning and 1 tablet (600 mg) before bedtime. Do not crush, chew, or split.. 60 tablet 11 024 2024 Discontinued(M ed list cleanup) azithromycin (Zithromax) 250 MG tabletIndication s:Chronic obstructive pulmonary disease, unspecified COPD type (CMS/HCC) Take 2 by mouth today then 1 daily for 4 days 6 tablet 025 2024 Discontinued(M ed list cleanup) dapagliflozin (Farxiga) 10 MGIndications:Ty pe 2 diabetes mellitus with hyperglycemia (CMS/HCC) Take 1 tablet (10 mg) by mouth Daily 90 tablet 1 025 2024 Discontinued(R eorder) insulin glargine (Lantus SoloStar) 100 UNIT/ML penIndications:T ype 2 diabetes mellitus with hyperglycemia, with long-term current use of insulin (CMS/HCC) Inject 50 Units under the skin in the morning. 45 mL 1 025 2024 Discontinued(R eorder) insulin aspart (NovoLOG FLEXPEN) 100 UNIT/ML penIndications:T ype 2 diabetes mellitus with hyperglycemia, with long-term current use of insulin (CMS/HCC) Inject 40 Units under the skin in the morning and 40 Units at noon and 40 Units in the evening. Inject before meals. 120 mL 1 025 2024 Discontinued(R eorder) Continuous Glucose Furnace Process Plant Operator (FreeStyle Alfredo 3 [place]) deviceIndication s:Type 2 diabetes mellitus with hyperglycemia, with long-term current use of insulin (CMS/HCC) 1 Device Daily 1 each 025 2024 Discontinued Active Problems Problem Noted Date Diagnosed Date Obstructive sleep apnea syndrome 07/19/2020 Chronic obstructive pulmonary disease 07/19/2020 Resolved Problems Problem Noted Date Diagnosed Date Resolved Date Acute hyperkalemia 01/14/2024 Acute metabolic encephalopathy 01/14/2024 01/14/2024 PETER (acute kidney injury) 01/14/2024 Bipolar 1 disorder 01/14/2024 Bipolar disorder with depression 01/14/2024 01/14/2024 Breast cancer screening by mammogram 01/14/2024 01/14/2024 Chronic depression 01/14/2024 Chronic hypercapnic respiratory failure 01/14/2024 01/14/2024 Chronic fatigue 01/14/2024 01/14/2024 Debility 01/14/2024 01/14/2024 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 01/14/2024 01/14/2024 Dehydration 01/14/2024 01/14/2024 Diarrhea 01/14/2024 01/14/2024 Disorder of sacroiliac joint 01/14/2024 01/14/2024 Elevated troponin 01/14/2024 01/14/2024 Epigastric pain 01/14/2024 01/14/2024 Gait instability 01/14/2024 01/14/2024 Hallucinations, visual 01/14/202401/13 Hemosiderin pigmentation of skin 01/14/2024 01/14/2024 Hypomagnesemia 01/14/2024 01/14/2024 Diabetes 01/14/2024 01/14/2024 Hypothyroidism 01/14/2024 01/14/2024 Thyroid disease 01/14/2024 01/14/2024 Iron deficiency anemia 01/14/202401/13 Irritable bowel disease 01/14/202406/2023 Kidney disease 01/14/2024 01/14/2024 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 01/14/2024 01/14/2024 Lumbar degenerative disc disease 01/14/2024 01/14/2024 Lumbosacral spondylosis without myelopathy 01/14/2024 01/14/2024 Major depressive disorder wi th psychotic features 01/14/2024 01/14/2024 Monoclonal gammopathy 01/14/20242023 Morbid obesity with BMI of 45.0-49.9, adult 01/14/2024 01/14/2024 Multiple falls 01/14/2024 01/14/2024 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) 01/14/2024 01/14/2024 On home oxygen therapy 01/14/202401/13 Other chronic pain 01/14/2024 Peripheral edema 01/14/2024 01/14/2024 Pruritic erythematous rash 01/14/2024 1 Rhabdomyolysis 01/14/2024 01/14/2024 Stage 3 chronic kidney disease (HCC) 01/14/2024 01/14/2024 Type 2 diabetes mellitus wit hout complications 01/14/2024 01/14/2024 UTI (urinary tract infection) 01/14/2024 01/14/2024 Venous reflux 01/14/2024 01/14/2024 Symptomatic varicose veins o f both lower extremities 01/14/2024 01/14/2024 Venous stasis ulcer limited to breakdown of skin without varicose veins 01/14/2024 01/14/2024 Ulcer of left lower leg 01/14/202406/2023 Diabetic neuropathy 07/15/2023 07/15/19 24 Encounters Date Type Department Care Team Description 09/09/2024 Refill [facility] [address] [place] [address] Jeannie Aguilar MD Type 2 diabetes mellitus with hyperglycemia, with long-term current use of insulin ([facility]) 08/25/2024 1:30 PM EDT Office Visit [facility] [address] [place] [address] Svetlana Garcia DO Chronic obstructive pulmonary disease, unspecified COPD type ([facility]) (Primary Dx); Obstructive sleep apnea syndrome 08/25/2024 Bamboo flowsheet [facility] [address] [place] [address] Svetlana Garcia DO 08/25/2024 Travel 08/23/2024 External Result Encounter [facility] External Department Unsolicited Roxane Bills MD 08/23/2024 External Result Encounter [facility] External Department Unsolicited Roxane Bills MD 08/23/2024 External Result Encounter [facility] External Department Unsolicited Roxane Bills MD 08/22/2024 11:30 AM EDT Office Visit [facility] [address] [place] [phone] Jeannie Aguilar MD Type 2 diabetes mellitus with hyperglycemia, with long-term current use of insulin ([facility]) (Primary Dx); Vitamin D deficiency; Primary hypertension ([facility]); Hyperlipemia, mixed ([facility]); Insulin long-term use ([facility]); Encounter for dietary consultation; Stage 3b chronic kidney disease (HCC) ([facility]); Class 3 severe obesity due to excess calories with serious comorbidity and body mass index (BMI) of 45.0 to 49.9 in adult; Type 2 diabetes mellitus with hyperglycemia ([facility]) 08/22/2024 Bamboo flowsheet [facility] [address] [place] [phone] Jeannie Aguilar MD 08/17/2024 Refill [facility] [address] [place] [phone] Isela Trammell LPN Type 2 diabetes mellitus with hyperglycemia, with long-term current use of insulin ([facility]) 07/30/2024 Refill [facility] [address] [place] [phone] Svetlana Garcia DO Chronic obstructive pulmonary disease, unspecified COPD type ([facility]) 06/28/2024 2:50 PM EDT Office Visit [facility] [address] [place] [phone] Mack Pride DPM Xerosis cutis (Primary Dx); Diabetes mellitus due to underlying condition with diabetic polyneuropathy, with long-term current use of insulin ([facility]); Pain due to onychomycosis of toenails of both feet 06/28/2024 Bamboo flowsheet [facility] [address] [place] [address] Mack Pride DPM from Last 3 Months Immunizations Immunization Administration Dates Next Due HepB-CpG 12/16/2022,06/13/2022 Influenza Whole 02/23/2013 Influenza, injectable, MDCK, preservative free, quadrivalent 12/25/2021,01/03/2021,02/16/2019 Influenza, injectable, MDCK, quadrivalent 01/28/2018 Influenza, injectable, quadrivalent 02/11/2017 Influenza, injectable, quadr ivalent, preservative free 12/12/2022,07/01/2022,01/16/2020 Influenza, seasonal, injectable 12/25/2021,01/03 Influenza, trivalent, adjuvanted 12/17/2023 Moderna SARS-CoV-2 Booster Vaccination Moderna SARS-CoV-2 Vaccination 2,03/12/2021,01/24/2021,07/12 Pneumococcal Conjugate PCV 13 05/11/2018 Pneumococcal Conjugate PCV 20 02/18/2022 Pneumococcal Polysaccharide PPSV23 10/28,07/31/2020,07/09/2016,05/21 RSV, recombinant, protein rosa bunit RSVpreF, adjuvant reconstitu, 120mcg/0.5mL, PF (Arexvy) 12/21/2023,01/28/2023 Tdap 01/13/2023,12/25/2021 Zoster, Recombinant 12/22/2020,09/13/2020 Family History Medical History Relation Name Comments Diabetes Father Glaucoma Father Hypertension Father Alcohol abuse Mother Relation Name Status Comments Father (Age 90) Mother (Age 32) Social History Tobacco Use Types Packs/Day Years Used Date Smoking Tobacco: Never Passive Smoke Exposure: Never Smokeless Tobacco: Never Tobacco Cessation:Counseling Given: Yes Alcohol Use Standard Drinks/Week Comments Never 0 (1 standard drink = 0.6 oz pure alcohol) Caffeine intake: 2-3 cups per day Comments Unknown Sex and Gender Information Value Date Recorded Sex Assigned at Not on file Legal Sex Female 7:13 PM EDT Gender Identity Not on file Sexual Orientation Not on file Last Filed Vital Signs Vital Sign Reading Time Taken Comments Blood Pressure 120/78 08/22/2024 11:37 AM EDT Pulse 75 08/25/2024 1:25 PM EDT Temperature - - Respiratory Rate 16 08/22/2024 11:37 AM EDT Oxygen Saturation 98% 08/25/2024 1:25 PM EDT Inhaled Oxygen Concentration - - Weight 103 kg (226 lb) 08/25/2024 1:25 PM EDT Height 162.6 cm (5' 4 ) 08/25/2024 1:25 PM EDT Body Mass Index 38.79 08/25/2024 1:25 PM EDT Plan of Treatment Upcoming Encounters Date Type Department Care Team (Late st Contact Info) Description 11/21/2024 11:30 AM EDT Office Visit [facility] [address] [place] [address] Jeannie Aguilar MD [address] [place] [address] 03/07/2025 2:00 PM EST Office Visit [facility] [address] [place] [phone] Svetlana Garcia DO [address] [place] [address] Health Maintenance Due Date Last Done Comments CT Colonography 1958 Colonoscopy 1958 Colorectal Cancer Screening 1958 FIT-DNA 1958 FIT 1958 FOBT 1958 Sigmoidoscopy 1958 Pap Smear 10/09/1979 Cervical Cancer Screening 1988 HPV/Cotest 1988 Mammogram 1998 Pneumococcal Vaccine: 65+ Years Completed 02/18/2022, 10/28/2021, 07/31/2020, Additional history exists Influenza Vaccine Completed 12/17/2023, , 07/01/2022, Additional history exists Procedures Procedure Name Priority Date/Time Associated Diagnosis Comments IMMUNOFIXATION,SERUM ([facility]) Routine 08/23/2024 11:34 AM EDT FREE K+L LT CHAINS, QN, S Routine 08/23/2024 11:34 AM EDT PROTEIN ELECTROPHORESIS, SERUM Routine 08/23/2024 11:34 AM EDT FERRITIN Routine 08/23/2024 11:34 AM EDT IRON AND TOTAL IRON BINDING CAPACITY Routine 08/23/2024 11:34 AM EDT LD Routine 08/23/2024 11:34 AM EDT COMPREHENSIVE METABOLIC PANEL Routine 08/23/2024 11:34 AM EDT CBC WITH AUTO DIFFERENTIAL Routine 08/23/2024 11:34 AM EDT POCT GLYCOSYLATED HEMOGLOBIN (HGB A1C) Routine 08/22/2024 11:44 AM EDT Type 2 diabetes mellitus with hyperglycemia, with long-term current use of insulin ([facility]) POCT GLUCOSE Routine 08/22/2024 11:44 AM EDT Type 2 diabetes mellitus with hyperglycemia, with long-term current use of insulin ([facility]) from Last 3 Months Results * (ABNORMAL) FREE K+L LT CHAINS, QN, S (08/23/2024 11:34 AM EDT) [facility] FREE KAPPA LIGHT CHAINS, S 281.2(H) 3.3 - 19.4 mg/L 08/24/2024 3:08 PM EDT [facility] FREE LAMBDA LIGHT CHAINS, S 33.7(H) 5.7 - 26.3 mg/L 08/24/2024 3:08 PM T [facility] KAPPA/LAMBDA RATIO, S 8.34(H) 0.26 - 1.65 08/24/2024 3:08 PM T [facility] Comment: Performed at: [address] [id number] [employer]: Jhoan Rich PhD, Phone: [phone] Other Topography unknown / Unknown 08/23/2024 11:34 AM EDT 08/23/2024 11:34 AM EDT us Roxane Bills MD LAB BLOOD ORDERABLES Final Resul t Performing Organization Address City/[facility]/ZIP Co de Phone Number [facility] [address] [place] [address], [place] * (ABNORMAL) IMMUNOFIXATION,SERUM ([facility]) (08/23/2024 11:34 AM EDT) [facility] IMMUNOFIXATION, SERUM Comment(A A) . 08/25/2024 2:08 PM EDT [facility] Comment: 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 PLEASE NOTE: Samples from patients receiving DARZALEX(R) (daratumumab) or SARCLISA(R)(isatuximab-irfc) treatment can appear as an IgG kappa and mask a complete response (CR). If this patient is receiving these therapies, this MITCH assay interference can be removed by ordering test number [id number]- Immunofixation, Daratumumab-Specific, Serum or [id number]- Immunofixation, Isatuximab-Specific, Serum and submitting a new sample for testing or by calling the lab to add this test to the current sample. IMMUNOGLOBULIN G 1,832(H) 586 - 1,602 mg/dL 08/25/2024 2:08 PM EDT [facility] IMMUNOGLOBULIN A, SERUM 546(H) 87 - 352 mg/dL 08/25/2024 2:08 PM EDT [facility] IMMUNOGLOBULIN M, SERUM 97 26 - 217 mg/dL 08/25/2024 2:08 PM EDT [facility] Comment: Performed at: [address] [id number] [employer]: Jhoan Rich PhD, Phone: [phone] Other Topography unknown / Unknown 08/23/2024 11:34 AM EDT 08/23/2024 11:34 AM EDT us Roxane Bills MD LAB BLOOD ORDERABLES Final Resul t Performing Organization Address City/[facility]/ZIP Co de Phone Number [facility] [address] [place] [address], [place] * (ABNORMAL) CBC auto differential (08/23/2024 11:34 AM EDT) WBC 13.4(H) 3.8 - 11.6 10*3/uL 08/23/2024 12:10 PM EDT [facility] UNCORRECTED WHITE BLOOD COUNT 13.4(H) 3.8 - 11.6 10*3/uL 08/23/2024 12:10 PM EDT [facility] RBC 4.72 3.60 - 5.00 10*6/uL 08/23/2024 12:10 PM EDT [facility] HEMOGLOBIN 13.1 11.8 - 15.4 g/dL 08/23/2024 12:10 PM EDT [facility] HEMATOCRIT 41.6 34.0 - 46.4 % 08/23/2024 12:10 PM EDT [facility] MCV 88.3 80 - 100 fL 08/23/2024 12:10 PM EDT [facility] MCH 27.8 24.7 - 34.3 pg 08/23/2024 12:10 PM EDT [facility] MCHC 31.5(L) 32.0 - 35.0 g/dL 08/23/2024 12:10 PM EDT [facility] RED CELL DISTRIBUTION WIDTH, RDW 15.3 11.9 - 15.3 % 08/23/2024 12:10 PM EDT [facility] PLATELET COUNT 252 150 - 450 10*3/uL 08/23/2024 12:10 PM EDT [facility] MEAN PLATELET VOLUME, MPV 7.4 6.3 - 10.7 fL 08/23/2024 12:10 PM EDT [facility] NEUTROPHILS, % 57.3 . % 08/23/2024 12:10 PM EDT [facility] LYMPHOCYTES, % 28.7 . % 08/23/2024 12:10 PM EDT [facility] MONOCYTE/MACROPHA GE, % 8.0 . % 08/23/2024 12:10 PM EDT [facility] EOSINOPHILS, % 4.5 . % 08/23/2024 12:10 PM EDT [facility] BASOPHILS, % 1.5 . % 08/23/2024 12:10 PM EDT [facility] NRBC 0.0 0 - 0.5 /100{WBC} 08/23/2024 12:10 PM EDT [facility] NEUTROPHILS 7.7 1.8 - 7.7 10*3/uL 08/23/2024 12:10 PM EDT [facility] LYMPHOCYTES 3.8 1.00 - 4.8 10*3/uL 08/23/2024 12:10 PM EDT [facility] MONOCYTES 1.1(H) 0.0 - 0.8 10*3/uL 08/23/2024 12:10 PM EDT [facility] EOSINOPHILS 0.6(H) 0.0 - 0.45 10*3/uL 08/23/2024 12:10 PM EDT [facility] BASOPHILS 0.2 0.0 - 0.2 10*3/uL 08/23/2024 12:10 PM EDT [facility] Blood (Blood) 08/23/2024 11: 34 AM EDT 08/23/2024 11:34 AM EDT Roxane Bills MD LAB BLOOD ORDERABLES Final Resul t Performing Organization Address City/[facility] Co de Phone Number [facility] [address] [place] [address], [facility] [address] [place] [address] * (ABNORMAL) Iron and TIBC (08/23/2024 11:34 AM EDT) IRON 57 50 - 212 ug/dL 08/23/2024 1:15 PM EDT [facility] TOTAL IRON BINDING CAPACITY 364 255 - 450 ug/dL 08/23/2024 1:15 PM EDT [facility] % IRON SATURATION 15.7(L) 20 - 50 % 08/23/2024 1:15 PM EDT [facility] TRANSFERRIN 260 203 - 362 mg/dL 08/23/2024 1:15 PM EDT [facility] Other Topography unknown / Unknown 08/23/2024 11:34 AM EDT 08/23/2024 11:34 AM EDT us Roxane Bills MD LAB BLOOD ORDERABLES Final Resul t [facility] [address] [place] [address], [facility] [address] [place] [address] * (ABNORMAL) Protein electrophoresis, serum (08/23/2024 11:34 AM EDT) TOTAL PROTEIN, SERUM 7.7 6.0 - 8.5 g/dL 08/24/2024 2:36 PM EDT [facility] ALBUMIN, SERUM 3.3 2.9 - 4.4 g/dL 08/24/2024 2:36 PM EDT [facility] [id number] 0.3 0.0 - 0.4 g/dL 08/24/2024 2:36 PM EDT [facility] [id number] 1.0 0.4 - 1.0 g/dL 08/24/2024 2:36 PM EDT [facility] BETA GLOBULIN 1.3 0.7 - 1.3 g/dL 08/24/2024 2:36 PM EDT [facility] GAMMA GLOBULIN 1.7 0.4 - 1.8 g/dL 08/24/2024 2:36 PM EDT [facility] M-SPIKE 1.0(H) Not Observed g/dL 08/24/2024 2:36 PM EDT [facility] GLOBULIN, TOTAL 4.4(H) 2.2 - 3.9 g/dL 08/24/2024 2:36 PM EDT [facility] A/G RATIO 0.8 0.7 - 1.7 08/24/2024 2:36 PM EDT [facility] SPE-NOTE Comment . 08/24/2024 2:36 PM EDT [facility] Comment: Protein electrophoresis scan will follow via computer, mail, or manager of recruiting delivery. Performed at: [facility] [address] [id number] Vp Scientific: Jhoan Rich PhD, Phone: [phone] Other Topography unknown / Unknown 08/23/2024 11:34 AM EDT 08/23/2024 11:34 AM EDT Roxane Bills MD LAB BLOOD ORDERABLES Final Resul t Performing Organization Address City/[facility]/ZIP Co de Phone Number [address] [address], * (ABNORMAL) Lactate dehydrogenase (08/23/2024 11:34 AM EDT) Pathologist [facility] LDH LACTATE DEHYDROGENASE 277(H) 140 - 271 U/L 08/23/2024 1:15 PM EDT [facility] Other Topography unknown / Unknown 08/23/2024 11:34 AM EDT 08/23/2024 11:34 AM EDT Roxane Bills MD LAB BLOOD ORDERABLES Final Resul t Performing Organization Address [facility] Co de Phone Number [address] [address], [facility] [address] [place] [address] * Ferritin (08/23/2024 11:34 AM EDT) Pathologist [facility] FERRITIN 101.2 11.0 - 306.8 ng/mL 08/23/2024 2:49 PM EDT [facility] Other Topography unknown / Unknown 08/23/2024 11:34 AM EDT 08/23/2024 11:34 AM EDT us Roxane Bills MD LAB BLOOD ORDERABLES Final Resul t Performing Organization Address [facility] Co de Phone Number [address] [address], [facility] [address] [place] [address] * (ABNORMAL) Comprehensive metabolic panel (08/23/2024 11:34 AM EDT) Pathologist [facility] Glucose 61(L) 70 - 100 mg/dL 08/23/2024 1:15 PM EDT [facility] Comment: Random Glucose Reference Range is dependent on time and content of last meal. Glucose of more than 200 mg/dL in a nonstressed, ambulatory subject supports the diagnosis of Diabetes Mellitus. ADA recommended reference range BUN 33(H) 7 - 25 mg/dL 08/23/2024 1:15 PM EDT [facility] CREATININE 1.43(H) 0.60 - 1.20 mg/dL 08/23/2024 1:15 PM EDT [facility] ESTIMATED GFR 40.702 mL/Min 08/23/2024 1:15 PM EDT [facility] Sodium 142 136 - 145 mmol/L 08/23/2024 1:15 PM EDT [facility] Potassium, Bld 3.9 3.5 - 5.1 mmol/L 08/23/2024 1:15 PM EDT [facility] Chloride 99 98 - 107 mmol/L 08/23/2024 1:15 PM EDT [facility] Carbon Dioxide 34.8(H) 21.0 - 31.0 mmol/L 08/23/2024 1:15 PM EDT [facility] Anion Gap 12.1 6.0 - 15.0 meq/L 08/23/2024 1:15 PM EDT [facility] Calcium 9.5 8.6 - 10.3 mg/dL 08/23/2024 1:15 PM EDT [facility] TOTAL PROTEIN 7.6 6.4 - 8.9 g/dL 08/23/2024 1:15 PM EDT [facility] ALBUMIN LEVEL 4.0 3.5 - 5.7 g/dL 08/23/2024 [facility] GLOBULIN 3.6 g/dL 08/23/2024 1:15 PM EDT [facility] ALBUMIN/GLOBULIN RATIO 1.1 08/23/2024 1:15 PM EDT [facility] BILIRUBIN,TOTAL 0.3 0.3 - 1.0 mg/dL 08/23/2024 1:15 PM EDT [facility] ASPARTATE AMINO TRANSFERASE 30 13 - 39 U/L 08/23/2024 1:15 PM EDT [facility] ALANINE AMINOTRANSFERASE 37 7 - 52 U/L 08/23/2024 1:15 PM EDT [facility] ALKALINE PHOSPHATASE 140(H) 34 - 104 U/L 08/23/2024 1:[facility] CREATININE CLR [facility] 45.28 08/23/2024 1:15 PM EDT [facility] Other Topography unknown / Unknown 08/23/2024 11:34 AM EDT 08/23/2024 11:34 AM EDT Roxane Bills MD LAB BLOOD ORDERABLES Final Resul t [facility] [address] [place] [address], [facility] [address] [place] [address] * POCT glycosylated hemoglobin (Hb A1C) docked device (08/22/2024 11:44 AM EDT) Hemoglobin A1C 10.9 Blood Venous blood specimen / Unknown 08/22/2024 11:44 AM EDT Jeannie Aguilra MD POINT OF CARE TEST ENTER/EDIT ORDERABLES Final Result * POCT glucose manually resulted (08/22/2024 11:44 AM EDT) Glucose Blood, POC 186 mg/dL Blood Capillary blood specimen / Unknown 08/22/2024 11:44 AM EDT Jeannie Aguilar MD POINT OF CARE TEST ENTER/EDIT ORDERABLES Final Result from Last 3 Months Insurance [place]ICA[place] [employer] MEDICARE ADVANTAGE Care Teams Sitecore Developer Relationship Specialty Start Date End Date Giovanni Moreno MD [address] [place] [address] PCP - General Family Medicine 09/18/22
--- OUTSIDE RECORDS SUMMARY | 2024-09-15 09:37 | XMS_ITS | Clinical Summary ---
Author Organization [facility] Address [address] [place] [address] Phone Care Team Providers Care Acrobatic Dancer Name Role Phone Unavailable Primary Care Provider Unavailabl e Social History Tobacco Use Types Packs/Day Years Used Date Smoking Tobacco: Never Assessed Comments Unknown Sex and Gender Information Value Date Recorded Sex Assigned at Not on file Legal Sex Female 6:30 PM EST Gender Identity Not on file Sexual Orientation Not on file Plan of Treatment Health Maintenance Due Date Last Done Comments Bone Density Scan 1960 CT Colonography 1960 Colonoscopy 1960 Colorectal Cancer Screening 1960 FIT-DNA (Cologuard) 1960 FIT 1960 Lipid Panel 1960 Sigmoidoscopy 1960 Yearly Adult Physical 1960 MMR Vaccines (1 of 1 - Stand alyssa series) 10/09/1959 Hepatitis C Screening 1976 Cervical Cancer Screening 10/09/1979 HPV/Cotest 10/09/1979 Pap Smear 10/09/1979 DTaP/Tdap/Td Vaccines (1 - Tdap) 1980 Mammogram 1998 Pneumococcal Vaccine (1 of 1 - PCV) 2008 Zoster Vaccines (1 of 2) 2008 COVID-19 Vaccine ( - 2023-2 5 season) 2023 Influenza Vaccine (Season Ended) 2024 RSV High Risk: (Elderly (60+ ) or Population) (1 - 1-dose 75+ series) 2033 HIB Vaccines Aged Out No longer eligi ble based on patient's age to complete this topic HPV Vaccines Aged Out No longer eligi ble based on patient's age to complete this topic Hepatitis A Vaccines Aged Out No long er eligible based on patient's age to complete this topic Hepatitis B Vaccines Aged Out No long er eligible based on patient's age to complete this topic IPV Vaccines Aged Out No longer eligi ble based on patient's age to complete this topic Meningococcal Vaccine Aged Out No rodney tereso eligible based on patient's age to complete this topic Rotavirus Vaccines Aged Out No longer eligible based on patient's age to complete this topic
--- OUTSIDE RECORDS SUMMARY | 2024-09-15 09:37 | XMS_ITS | Encounter Summary ---
Author Organization [facility] Address [address] [place] [address] Phone Care Team Providers Care Speed Belt Sander Tender Name Role Phone Unavailable Primary Care Provider Unavailabl e Encounter Details Date Type Department Care Team (Late st Contact Info) Description 12/25/2021 Orders Only [facility] [address] [place] [address] Conversion, Onbase Social History Tobacco Use Types Packs/Day Years Used Date Smoking Tobacco: Never Assessed Comments Unknown Sex and Gender Information Value Date Recorded Sex Assigned at Not on file Legal Sex Female 6:30 PM EST Gender Identity Not on file Sexual Orientation Not on file documented as of this encounter Plan of Treatment Scheduled Orders Name Type Priority Associated Diagnoses Orde r Schedule OUTSIDE LAB SCAN Lab Ordered: 12/25/2021 documented as of this encounter Visit Diagnoses Not on filedocumented in this encounter
--- OUTSIDE RECORDS SUMMARY | 2024-09-15 09:37 | XMS_ITS | Encounter Summary ---
Author Organization [facility] Address [address] [place] [address] Care Team Providers Care Market Risk Specialist Name Role Phone Giovanni Moreno MD Primary Care Provider [phone] Encounter Details Date Type Department Care Team (Late Contact Info) Description 02/12/2023 External Result Encounter [facility] External Department Unsolicited Roxane Bills MD [address] [place] [address] Social History Tobacco Use Types [...] Visit [facility] [address] [place] [phone] Jeannie Aguilar MD [address] [place] [address] 03/07/2025 2:00 PM EST Office Visit [facility] [address] [place] [address] Svetlana Garcia DO [address] [place] [address] documented as of this encounter Procedures Procedure Name Priority Date/Time Associated Diagnosis Comments CT GUIDED IMAGING FOR NEEDLE PLACEMENT 02/12/2023 11:37 AM EDT documented in this encounter Results * CT guided imaging for needle placement (02/12/2023 11:37 AM EDT) Anatomical Region Laterality Modality Computed Tomogra phy 02/12/2023 11:3 7 AM EDT Impressions 02/24/2023 12:[address]-guided bone marrow biopsy. Impression dictated by: Manish Mccurdy Jr., D.OJane02/12/2023 11:44 AM Dictation Location: [place] [address] Transcribed By: [facility] 02/12/23 1144 Dictated By: Manish Mccurdy Jr, DO 02/12/23 1137 Signed By: <Electronically signed by Manish Mccurdy Jr, DO in OV> 02/12/23 1144 Narrative 02/24/2023 12:16 PM EST [facility] Main [place] [address] [place] [address] Scan Report Signed Patient: Kelsea Turcios MR#: [id number] 58 : 1960 Acct:[id number] Age/Sex: 62 / F ADM Date: 02/12/23 Loc: CT Room: Type: [facility] Attending Dr: Roxane Bills MD Copies to: Roxane Bills MD Ordering Provider: Roxane Bills MD Date of Service: 02/12/23 CT/CT guided bone marrow bx/aspir: MGUS ([id number]) CT/CT guided needle placement: . CT GUIDED [...] reconstruction technique. CT/CT guided bone marrow bx/aspir Procedure Note Radiology, Radiologist, MD - 02/24/2023 [facility] Main [place] [address] [place] [address] CT Scan Report Signed Patient: Kelsea Turcios MMR#: [id number] [birth year] : 9Acct:[id number] Age/Sex: 62 / FADM Date: 02/12/23 Loc: CT Room:Type: [facility] Attending Dr: Roxane Bills MD Copies to: Roxane Bills MD Ordering Provider: Roxane Bills MD Date of Service: 02/12/23 CT/CT guided bone marrow bx/aspir: MGUS ([id number]) CT/CT guided needle placement: . CT GUIDED BONE MARROW BIOPSY OF THE RIGHT ILIAC BONE: CLINICAL HISTORY: MGUS FINDINGS: After questions were answered, informed consent was obtained. The patientwas placed prone on the CT table and the right iliac bone was selected for biopsy. The skin over thepelvis was prepped and d raped in normal sterile fashion. 1% lidocaine was utilized for localanesthesia. Utilizing CT guidance, an 11-gauge OnControl biopsy needle was advanced into the rightiliac bone. 12mL of bone marrow was aspirated and given to pathology. After the sample was deemedadequate by pathology, a core biopsy was obtained and needle was withdrawn. Hemostasis wasachieved. Bandage was applied. The patient tolerated procedure well without immediate complication. Please note that the patient was monitored throughout the procedure bynursing personnel. This CT exam was performed using one or more following dose reductiontechniques: Automated exposure control, adjustment of the mA and/or kV according to patient size, or useof iterative reconstruction technique. CT/CT guided bone marrow bx/aspir IMPRESSION: Successful CT-guided bone marrow biopsy. Impression dictated by: Manish Mccurdy Jr., D.O.02/12/2023 11:44 AM Dictation Location: [place] [address] Transcribed By: [facility] 02/12/23 1144 Dictated By: Manish Mccurdy Jr, DO 02/12/23 1137 Signed By: <Electronically signed by Manish Mccurdy Jr, DO inOV> 02/12/23 1144 Roxane Bills MD IMG CT PROCEDURES Final Result documented in this encounter Visit Diagnoses Not on filedocumented in this encounter Care Teams Market Risk Specialist Relationship Specialty Start Date End Date Giovanni Moreno MD [address] [place] [address] PCP - General Family Medicine 09/18/22 documented as of this encounter
--- OUTSIDE RECORDS SUMMARY | 2024-09-15 09:37 | XMS_ITS | Encounter Summary ---
Author Organization [facility] Address [address] [place] [address] Care Team Providers Care Director Of Business Applications Name Role Phone Giovanni Moreno MD Primary Care Provider + [phone] Encounter Details Date Type Department Care Team ([facility] Contact Info) Description 2022 Abstract [facility] [address] [place] [phone] Svetlana Garcia DO [address] [place] [address] Social History Tobacco Use Types Packs/Day Years [...] Upcoming Encounters Date Type Department Care Team ([facility] Contact Info) Description 11/21/2024 11:30 AM EDT Office Visit [facility] [address] [place] [address] Jeannie Aguilar MD [address] [place] [address] 03/07/2025 2:00 PM EST Office Visit [facility] [address] [place] [address] Svetlana Garcia, DO [address] [place] [address] documented as of this encounter Visit Diagnoses Not on filedocumented in this encounter Care Teams Director Of Business Applications Relationship Specialty Start Date End Date Giovanni Moreno MD [address] [facility] [place] [address] PCP - General Family Medicine 09/18/22 documented as of this encounter
--- OUTSIDE RECORDS SUMMARY | 2024-09-15 09:37 | XMS_ITS | Encounter Summary ---
Author Organization [facility] Address [address] [place] [address] Care Team Providers Care Evaluation Advisor Name Role Phone Giovanni Moreno MD Primary Care Provider [phone] Encounter Details Date Type Department Care Team ([facility] Contact Info) Description 01/29/2023 Abstract [facility] [address] [place] [address] Svetlana Garcia DO [address] [place] [address] Social History Tobacco Use Types Packs/Day Years [...] Upcoming Encounters Date Type Department Care Team ([facility] Contact Info) Description 11/21/2024 11:30 AM EDT Office Visit [facility] [address] [place] [address] Jeannie Aguilar MD [address] [place] [address] 03/07/2025 2:00 PM EST Office Visit [facility] [address] [place] [address] Svetlana Garcia, DO [address] [place] [address] documented as of this encounter Visit Diagnoses Not on filedocumented in this encounter Care Teams Evaluation Advisor Relationship Specialty Start Date End Date Giovanni Moreno MD [address] [facility] [place] [address] PCP - General Family Medicine 09/18/22 documented as of this encounter
--- NOTE | 2024-09-15 09:55 | PM.CN ---
Consult Note: HPI Data of Consult Patient: known to practice within the last 3 years Requesting Physician: Rachana London NP Primary Care Provider: [facility] Consult Narrative Reason for consult: f/u Narrative: Kelsea villatoro pleasant 63 year old female presents for evaluation and management of chronic low back pain and left leg pain. Patient notices increase in pain with walking and activity. Patient does endorse numbness tingling and weakness in bilateral legs left >right, pain relieved with rest and leaning forward. Has been evaluated by NS and deemed non surgical. Pain today stabbing 7/10 in low back with numbness tingling and weakness in bilateral legs. pain increasing to 10/10 with standing walking and activity. since I last saw the pt her a1c has improved from >13% to 9.6% per pt, continues to follow with endocrinology and has continues glucose monitor. finds benefit to cymbalta, norco 5-325mg TID PRN, gabapentin 900mg BID and 600mg HS, and tizanidine 4mg BID PRN. denies falls since last visit. updated lumbar MRI consistent with multilevel stenosis, ddd, and spondylosis. cc:: CC: Rachana London NP Review of Systems ROS Status of ROS 10 or more systems reviewed and unremarkable except as noted in history and below Musculoskeletal Reports: back pain, extremity pain and joint pain Meds Home Medications and Allergies Home Medications ?Medication ?Instructions ?Recorded ?Confirmed ?Type allopurinol 300 mg tablet 300 mg PO DAILY 10/30/22 07/28/23 History amlodipine 5 mg tablet (Norvasc) 5 mg PO DAILY 10/30/22 07/28/23 History benzonatate 100 mg capsule 100 mg PO TID 10/30/22 07/28/23 History brexpiprazole 3 mg tablet (Rexulti) 3 mg PO DAILY 10/30/22 07/28/23 History budesonide-formoterol HFA 160 2 inh inhalation BID 10/30/22 07/28/23 History mcg-4.5 mcg/actuation aerosol inhaler (Symbicort) carvedilol 25 mg tablet 25 mg PO BID 10/30/22 07/28/23 History cholecalciferol (vitamin D3) 50 2,000 unit PO BID 10/30/22 07/28/23 History mcg (2,000 unit) capsule colestipol 1 gram tablet 1 g PO BID 10/30/22 07/28/23 History dicyclomine 20 mg tablet 20 mg PO QID 10/30/22 07/28/23 History doxycycline hyclate 100 mg capsule 100 mg PO DAILY 10/30/22 07/28/23 History duloxetine 60 mg capsule,delayed 60 mg PO DAILY 10/30/22 07/28/23 History release (Cymbalta) furosemide 40 mg tablet 40 mg PO DAILY 10/30/22 07/28/23 History hydroxyzine HCl 10 mg tablet 10 mg PO Q8H 10/30/22 07/28/23 History insulin glargine 100 unit/mL (3 20 unit subcut DAILY 10/30/22 07/28/23 History mL) subcutaneous pen (Lantus Solostar U-100 Insulin) ipratropium 0.5 mg-albuterol 3 mg 3 ml inhalation Q6H 10/30/22 07/28/23 History (2.5 mg base)/3 mL nebulization soln ipratropium bromide 0.02 % 0.5 mg inhalation Q6H PRN 10/30/22 07/28/23 History solution for inhalation shortness of breath or wheezing levomilnacipran 120 mg capsule,24 120 mg PO DAILY 10/30/22 07/28/23 History hr,extended release (Fetzima) levothyroxine 50 mcg capsule 50 mcg PO DAILY 10/30/22 07/28/23 History magnesium oxide 500 mg PO DAILY 10/30/22 07/28/23 History mirtazapine 30 mg tablet 30 mg PO DAILY 10/30/22 07/28/23 History montelukast 10 mg tablet 10 mg PO DAILY 10/30/22 07/28/23 History (Singulair) omeprazole 40 mg capsule,delayed 40 mg PO DAILY 10/30/22 07/28/23 History release oxybutynin chloride 10 mg 10 mg PO DAILY 10/30/22 07/28/23 History tablet,extended release 24 hr sucralfate 1 gram tablet 1 g PO TID 10/30/22 07/28/23 History theophylline 200 mg 200 mg PO DAILY 10/30/22 07/28/23 History capsule,extended release 24 hr (Nishant-24) tizanidine 4 mg capsule (Zanaflex) 4 mg PO BID PRN muscle spasticity 10/30/22 07/28/23 History gabapentin 600 mg tablet See Rx Instructions .Route 12/10/23 Rx .COMPLEX #120 tabs tizanidine 4 mg tablet (Zanaflex) 4 mg PO BEDTIME PRN muscle 12/10/23 Rx spasticity #30 tabs hydrocodone 5 mg-acetaminophen 325 1 tab PO Q8H PRN pain #90 tabs 03/02/24 Rx mg tablet naloxone 4 mg/actuation nasal 4 mg intranasal Q3M PRN opioid 03/04/24 Rx spray (Narcan) overdose #2 ea gabapentin 600 mg tablet See Rx Instructions .Route 03/21/24 Rx .COMPLEX #120 tabs hydrocodone 5 mg-acetaminophen 325 1 tab PO TID PRN pain #90 tabs 04/08/24 Rx mg tablet hydrocodone 5 mg-acetaminophen 325 1 tab PO TID PRN pain #90 tabs 05/09/24 Rx mg tablet gabapentin 600 mg tablet See Rx Instructions .Route 05/11/24 Rx .COMPLEX #120 tabs gabapentin 600 mg tablet See Rx Instructions .Route 06/02/24 Rx .COMPLEX #120 tabs hydrocodone 5 mg-acetaminophen 325 1 tab PO TID PRN pain #90 tabs 06/02/24 Rx mg tablet hydrocodone 5 mg-acetaminophen 325 1 tab PO Q8H PRN pain #90 tabs 07/07/24 Rx mg tablet hydrocodone 5 mg-acetaminophen 325 1 tab PO TID PRN pain #90 tabs 08/11/24 Rx mg tablet gabapentin 600 mg tablet See Rx Instructions .Route 08/15/24 Rx .COMPLEX #120 tabs gabapentin 600 mg tablet See Rx Instructions .Route 09/08/24 Rx .COMPLEX #120 tabs hydrocodone 5 mg-acetaminophen 325 1 tab PO TID PRN pain #90 tabs 09/08/24 Rx mg tablet Allergies Allergy/AdvReac Type Severity Reaction Status Date / Time honey Allergy Severe Anaphylaxis Verified 07/28/23 07:48 codeine Allergy Mild itching Verified 07/28/23 07:48 morphine AdvReac Vomiting Verified 07/28/23 07:48 Exam Constitutional Documenting provider has reviewed patient's vital signs: yes Common normals: no apparent distress, oriented x3, healthy appearing, alert and well nourished General appearance: cooperative Nutritional appearance: obese HENMT Common normals: normocephalic, hearing grossly normal bilaterally and moist oral mucous membranes Head and scalp: normocephalic Eye Common normals: PERRL Pupil: PERRL Neck & C-Spine Common normals: full ROM General: normal visual inspection Chest Common normals: inspection of chest normal Respiratory Common normals: normal respiratory effort, no retractions and no use of accessory muscles Other: chronic O2 Back & Pelvis Lumbar spine/lower back: ROM limited, pain with ROM and straight leg raise positive left Sacroiliac joints: SI joint(s) abnormal Other: decreased sensation to left L4,5,S1 strength 4/5 in BLE left sij positive gabi(patricks), gaenslens, thigh thrust, compression test Extremity Other: LLE non pitting edema no redness warmth or discoloration, scarring to left miramontes Neuro Common normals: oriented x3 and moves all extremities Sensorium/orientation: alert Gait (neuro): antalgic and assistive device used walker Psych Common normals: mental status grossly normal, thought process normal, cooperative, affect normal, speech normal and activity/motor behavior normal Speech: normal speech Thought process: normal thought process Results Additional Findings Additional findings: If on a controlled substance or opioids, I have checked an [place] report on this patient and there are no aberrancies noted in the prescribing history.??If on a controlled substance or opioid a drug screen was completed and reviewed within the last year, and if there has not been a drug screen completed we ordered one today to monitor higher risk, state monitored pain medication use. As part of providing excellent, safe, comprehensive care, the following was completed at our patient's visit: 1. A medication reconciliation and review to ensure accurate knowledge of current/active medications, including asking our patients to inform us about any gtvr-[id number] medications or herbal remedies/nutritional supplements/alternative remedies. 2. A review to specifically ensure our patients have had annual screening for screening for depression, screening for tobacco use, and screening for unhealthy alcohol use. For concerning screenings had a discussion with the patient, provided patient education, and recommended follow-up with primary care provider when appropriate. If patient noted with a risk of falling, they received education on strength, gait, and balance training to prevent future risk of falling. Assessment and Plan Assessment and Plan (1) Lumbar stenosis with neurogenic claudication: Assessment and Plan: The patient has had over 3 months of moderate to severe low back and LLE pain with functional impairment and inadequate response to conservative care including NSAIDS (unless there are contraindication such as concurrent blood thinners), multiple oral or topical pain medications, and home exercise program/physical therapy.? Patient has completed >6 weeks of guided home exercise program and/or formal physical therapy program without relief of their symptoms. The Oswestry Disability Index was completed, and the patient scored a 54%.? The patient noted the following:?? moderate to severe pain impacting ADLS, sitting, standing, sleeping, social life, and travel ? We discussed the risks and benefits of the procedure with the patient, and we are NOT planning on using sedation as outlined in the guidelines from Medicare unless there is a documented reason that sedation would be strongly recommended.?? ?The procedure will be completed with fluoroscopic guidance.? (2) Sacroiliitis: (3) Uncontrolled diabetes mellitus: (4) Encounter for long-term use of opiate analgesic: (5) Muscle spasm: Plan left L4-5 L5-S1 TFESI under fluoroscopy continue current medications, risks vs benefits reviewed continue HEP as tolerated continue f/u with endocrinology, although A1c improving continues to report BS >250-300. increased risk of infection and hyperglycemia post ANNE reviewed with pt, pt agreeable to plan of care. will f/u with endocrinology if she has increased BS after TFESI f/u 2 weeks after injection, consider left SIJ injection if pain persists
== END 2024-09-15 09:34 | disposition home or self-care (01) ==
PROVIDERS: Visit Provider Nurse Practitioner
DX: M48.062 Spinal stenosis, lumbar region with neurogenic claudication (principal); M46.1 Sacroiliitis, not elsewhere classified; E11.8 Type 2 diabetes mellitus with unspecified complications; Z79.891 Long term (current) use of opiate analgesic; M62.838 Other muscle spasm
CPT/HCPCS: G0463

== ENCOUNTER 2024-09-26 10:49 | Day surgery (SDC) | payer MEDICARE, MEDICAID, SELFPAY ==
--- OUTSIDE RECORDS SUMMARY | 2024-09-26 10:51 | XMS_ITS | Clinical Summary ---
Author Organization [employer] [facility] tem Address [id number] [address] [place] [address] Care Team Providers Care Field Operations Technician Name Role Phone Svetlana Garcia DO Primary Care Provider [phone] Social History Tobacco Use Types Packs/Day Years [...] 12/12/2024 Medical Devices Not on file Insurance [employer] Care Teams Field Operations Technician Relationship Specialty Start Date End Date Svetlana Garcia DO PCP - General Internal Medicine 09/21/20
--- OUTSIDE RECORDS SUMMARY | 2024-09-26 10:51 | XMS_ITS | Encounter Summary ---
Author Organization [facility] Address [address] [place] [address] Care Team Providers Care Supervisor Network Control Operators Name Role Phone Giovanni Moreno MD Primary Care Provider Encounter Details Date Type Department Care Team (Late Contact Info) Description 02/02/2024 External Result Encounter [facility] Department Unsolicited Roxane Bills MD [address] [place] [address] Social History Tobacco Use Types [...] Department Care Team (Late Contact Info) Description 09/30/2024 10:10 AM EDT Office Visit [facility] [address] [place] [address] Mack Pride DPM [address] [address] 11/21/2024 11:30 AM EDT Office Visit [facility] [address] [place] [address] Jeannie Aguilar MD [address] [place] [address] 03/07/2025 2:00 PM EST Office Visit [facility] [address] [place] [address] Svetlana Garcia Alexys, DO [address] [place] [address] documented as of this encounter Procedures Procedure [...] Domenico Brown M.D.02/02/2024 1:46 PM Dictation Location: [place] [address] Transcribed By: [facility] 02/02/24 1346 Dictated By: Domenico Brown DO 02/02/24 1344 Signed By: <Electronically signed by Domenico Brown DO in OV> 02/02/24 1346 Narrative 02/02/2024 1:49 PM EDT [facility] Main [address] [address] XRay Report Signed Patient: Kelsea Turcios MR#: [id number] 58 : 1960 Acct:[id number] Age/Sex: 63 / F ADM Date: 02/02/24 Loc: XT Room: Type: [facility] RCR Attending Dr: Roxane Bills MD Copies [...] findings. XR/XR bone survey Procedure Note Radiology, Radiologist, MD - 02/02/2024 [facility] Main [place] [address] [place] [id number] XRay Report Signed Patient: Kelsea Turcios MMR#: [id number] 58 : 9Acct:[id number] Age/Sex: 63 / FADM Date: 02/02/24 Loc: Room:Type: [facility] Attending Dr: Roxane Bills MD Copies [...] Domenico Brown M.D.02/02/2024 1:46 PM Dictation Location: [place] [address] Transcribed By: [facility] 02/02/24 1346 Dictated By: Domenico Brown DO 02/02/24 1344 Signed By: <Electronically signed by Domenico Brown DO in OV> 02/02/24 1346 us Roxane Bills MD IMG XR PROCEDURES Final Result documented in this encounter Visit Diagnoses Not on filedocumented in this encounter Care Teams Supervisor Network Control Operators Relationship Specialty Start Date End Date Giovanni Moreno MD [address] [place] [address] PCP - General Family Medicine 09/18/22 documented as of this encounter
--- OUTSIDE RECORDS SUMMARY | 2024-09-26 10:52 | XMS_ITS | Clinical Summary ---
Author Organization [facility] Healthcare Address [address] [place] [address] Care Team Providers Care Adjunct Instructor Of Women'S Studies Name Role Phone Giovanni Moreno MD Primary Care Provider [phone] Allergies Active Allergy Reactions Criticality Noted Date [...] nasal sprayIndications :Chronic obstructive pulmonary disease, unspecified ([facility]) USE 1 SPRAY INTO EACH NOSTRIL EVERY DAY FOR 30 DAYS 16 mL 023 Active HYDROcodone-acet aminophen ([place]) 5-325 MG tablet 023 Active hydrOXYzine HCl (Atarax) 10 MG tablet 023 Active prednisoLONE acetate (Pred-Forte) 1 % ophthalmic suspension 023 Active tiZANidine (Zanaflex) 4 MG tablet Take 4 mg by mouth in the evening Active Refresh Tears 0.5 % ophthalmic solution 023 Active Continuous Blood Gluc Sensor (FreeStyle Alfredo 2 Sensor) [facility] 024 Active BD Pen Needle Micro U/F 32G X 6 MM [facility] Active Fetzima 120 MG extended release capsule 024 Active mirtazapine (Remeron) 45 MG tablet 024 Active olopatadine (Patanol) 0.1 % ophthalmic solution 024 Active furosemide (Lasix) 40 MG tablet 024 Active diclofenac sodium 1 % gelIndications:D iabetes mellitus due to underlying condition with diabetic polyneuropathy, with long-term current use of insulin ([facility]) APPLY 4 GRAMS TO AFFECTED AREA 4 [...] ns:Chronic obstructive pulmonary disease, unspecified COPD type ([facility]) Inhale 2 puffs in the morning and 2 puffs before bedtime. Rinse mouth with water after use to reduce aftertaste and incidence of candidiasis. Do not swallow.. 1 each 5 024 2024 Active ipratropium-albu terol (Duo-Neb) 0.5-2.5 mg/3 mL nebulizer solutionIndicati ons:Chronic obstructive pulmonary disease, unspecified COPD type (HCC) Take 3 mL by nebulization 4 (four) times a day as needed for wheezing or shortness of breath 360 mL 11 024 2024 Active montelukast (Singulair) 10 MG tabletIndication s:Chronic obstructive pulmonary disease, unspecified COPD type (HCC) Take 1 tablet (10 mg) by mouth 1 (one) time each day at the same time 30 tablet 5 Active theophylline ER (Nishant-24) 200 MG 24 hr capsuleIndicatio ns:Chronic obstructive pulmonary disease, unspecified COPD type (HCC) Take 1 capsule (200 mg) by mouth 1 (one) time each day at the same time 30 capsule 5 Active insulin lispro-aabc (Lyumjev KwikPen) 100 UNIT/ML penIndications:T ype 2 diabetes mellitus with hyperglycemia, with long-term current use of insulin ([facility]) Inject 40 Units under the skin in the morning and 40 Units at noon and 40 Units in the evening. Inject with meals. 36 pen 1 025 2024 Active albuterol HFA 90 mcg/act inhalerIndicatio ns:Chronic obstructive pulmonary disease, unspecified COPD type (HCC) INHALE 2 PUFFS IN THE MORNING AND 2 PUFFS IN THE EVENING AND 2 PUFFS BEFORE BEDTIME. 18 g 5 025 Active insulin glargine (Lantus SoloStar) 100 UNIT/ML penIndications:T ype 2 diabetes mellitus with hyperglycemia, with long-term current use of insulin ([facility]) Inject 50 Units under the skin in the morning. 45 mL 1 025 2024 Active insulin aspart (NovoLOG FLEXPEN) 100 UNIT/ML penIndications:T ype 2 diabetes mellitus with hyperglycemia, with long-term current use of insulin ([facility]) Inject 40 Units under the skin in the morning and 40 Units at noon and 40 Units in the evening. Inject before meals. 120 mL 1 Active dapagliflozin (Farxiga) 10 MGIndications:Ty pe 2 diabetes mellitus with hyperglycemia (HCC) Take 1 tablet (10 mg) by mouth Daily 90 tablet 1 Active Continuous Glucose Sensor (FreeStyle Alfredo 3 Plus Sensor) miscIndications: Type 2 diabetes mellitus with hyperglycemia, with long-term current use of insulin ([facility]) 1 Bar Every 15 Days 6 each 1 025 2024 Active semaglutide (Ozempic, 0.25 or 0.5 MG/DOSE,) 2 MG/1.5ML solution pen-injectorIndi cations:Type 2 diabetes mellitus with hyperglycemia, with long-term current use of insulin ([facility]) Inject 0.5 mg under the skin 1 (one) time per week 4.5 mL 1 025 2024 Active busPIRone (Buspar) 5 MG tablet TAKE 1 TABLET BY ORAL ROUTE 1 TIMES PER DAY IN THE AFTERNOON Active hydrOXYzine HCl (Atarax) 25 MG tablet Take 25 mg by mouth 3 (three) times a day as needed for anxiety Active Ozempic, 0.25 or 0.5 MG/DOSE, 2 MG/3ML solution pen-injector Active Continuous Glucose Hat Block Bench Hand (FreeStyle Alfredo 3 [place]) deviceIndication s:Type 2 diabetes mellitus with hyperglycemia, with long-term current use of insulin ([facility]) USE DIRECTED 1 each Active Continuous Glucose Hat Block Bench Hand (FreeStyle Alfredo 3 [place]) deviceIndication s:Type 2 diabetes mellitus with hyperglycemia, with long-term current use of insulin ([facility]) 1 Device Daily 1 each 025 2024 [...] bowel disease 01/14/202406/2023 Kidney disease 01/14/2024 01/14/2024 snf (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 01/14/2024 01/14/2024 Lumbar [...] 01/14/2024 01/14/2024 Stage 3 chronic kidney disease 01/14/2024 01/14/2024 Type 2 diabetes mellitus wit hout complications 01/14/2024 01/14/2024 UTI (urinary tract infection) 01/14/2024 01/14/2024 Venous reflux 01/14/2024 01/14/2024 Symptomatic varicose veins o f both lower extremities 01/14/2024 01/14/2024 Venous stasis ulcer limited to breakdown of skin without varicose veins 01/14/2024 01/14/2024 Ulcer of left lower leg 01/14/202406/2023 Diabetic neuropathy 07/15/2023 07/15/19 24 Encounters Date Type Department Care Team Description 09/19/2024 External Result Encounter [facility] External Department Unsolicited Roxane Bills MD 09/19/2024 External Result Encounter [facility] External Department Unsolicited Roxane Bills MD 09/19/2024 External Result Encounter [facility] External Department Unsolicited Roxane Bills MD 09/19/2024 External Result Encounter [facility] External Department Unsolicited Roxane Bills MD 09/19/2024 External Result Encounter [facility] External Department Unsolicited Roxane Bills MD 09/09/2024 Refill [facility] [address] [place] [address] Jeannie Aguilar MD Type 2 diabetes mellitus with hyperglycemia, with long-term current use of insulin (HCC) 08/25/2024 1:30 PM EDT Office Visit [facility] [address] [place] [address] Svetlana Garcia DO Chronic obstructive pulmonary disease, unspecified COPD type (HCC) (Primary Dx); Obstructive sleep apnea syndrome 08/25/2024 Bamboo flowsheet [facility] [address] [place] [address] Svetlana Garcia DO 08/25/2024 Travel 08/23/2024 External Result Encounter [facility] External Department Unsolicited Roxane Bills MD 08/23/2024 External Result Encounter [facility] External Department Unsolicited Roxane Bills MD 08/23/2024 External Result Encounter [facility] External Department Unsolicited Roxane Bills MD 08/22/2024 11:30 AM EDT Office Visit [facility] [address] [place] [address] Jeannie Aguilar MD Type 2 diabetes mellitus with hyperglycemia, with long-term current use of insulin (HCC) (Primary Dx); Vitamin D deficiency; Primary hypertension ; Hyperlipemia, mixed ; Insulin long-term use (HCC); Encounter for dietary consultation; Stage 3b chronic kidney disease ([facility]); Class 3 severe obesity due to excess calories with serious comorbidity and body mass index (BMI) of 45.0 to 49.9 in adult ([facility]-HCC); Type 2 diabetes mellitus with hyperglycemia (HCC) 08/22/2024 Bamboo flowsheet [facility] [address] [place] [address] Jeannie Aguilar MD 08/17/2024 Refill [facility] [address] [place] [address] Isela Trammell LPN Type 2 diabetes mellitus with hyperglycemia, with long-term current use of insulin (HCC) 07/30/2024 Refill [facility] [address] [place] [address] Svetlana Garcia DO Chronic obstructive pulmonary disease, unspecified COPD type (HCC) 06/28/2024 2:50 PM EDT Office Visit [facility] [place] [facility] [address] [place] [address] Mack Pride DPM Xerosis cutis (Primary Dx); Diabetes mellitus due to underlying condition with diabetic polyneuropathy, with long-term current use of insulin (HCC); Pain due to onychomycosis of toenails of both feet 06/28/2024 Bamboo flowsheet [facility] [address] [place] [address] Mack Pride DPM from Last [...] Care Team (Late st Contact Info) Description 09/30/2024 10:10 AM EDT Office Visit [facility] [place] [facility] [address] [place] [phone] Mack Pride DPM [address] [facility] [address] [place] [address] 11/21/2024 11:30 AM EDT Office Visit [facility] [address] [place] [address] Jeannie Aguilar MD [address] [place] [address] 03/07/2025 2:00 PM EST Office Visit [facility] [address] [place] [phone] Svetlana Garcia DO [address] [place] [address] Health Maintenance Due Date Last Done Comments CT Colonography 1958 Colonoscopy 1958 Colorectal Cancer Screening 1958 FIT-DNA 1958 FIT 1958 FOBT 1958 Sigmoidoscopy 1958 Pap Smear 10/09/1979 Cervical Cancer Screening 1988 HPV/Cotest 1988 Mammogram 1998 Pneumococcal Vaccine: 65+ Years Completed 02/18/2022, 10/28/2021, 07/31/2020, Additional history exists Influenza Vaccine Completed 12/17/2023, , 07/01/2022, Additional history exists Procedures Procedure Name Priority Date/Time Associated Diagnosis Comments BIOPSY BONE MARROW 09/19/2024 11 :37 AM EDT PATHOLOGY REQUEST FOR LAB FADI Routine 09/19/2024 10:15 AM EDT URIC ACID Routine 09/19/2024 9:31 AM EDT COMPREHENSIVE METABOLIC PANEL Routine 09/19/2024 9:31 AM EDT COAGULATION PROFILE STAT 09/19/2024 9 :31 AM EDT CBC WITH AUTO DIFFERENTIAL STAT 09/19/2024 9:31 AM EDT IMMUNOFIXATION,SERUM ([facility]) Routine 08/23/2024 11:34 AM EDT FREE K+L [...] hyperglycemia, with long-term current use of insulin (HCC) POCT GLUCOSE Routine 08/22/2024 11:44 AM EDT Type 2 diabetes mellitus with hyperglycemia, with long-term current use of insulin (HCC) from Last 3 Months Results * Biopsy bone marrow (09/19/2024 11:37 AM EDT) 09/19/2024 11:3 7 AM EDT Impressions [facility] - 09/19/2024 11:[address]-guided bone marrow biopsy. Impression dictated by: Manish Mccurdy Jr., DJaneOJane 09/19/2024 11:38 AM Dictation Location: [place] [address] Transcribed By: [facility] 09/19/24 1138 Dictated By: Manish Mccurdy Jr, DO 09/19/24 1137 Signed By: <Electronically signed by Manish Mccurdy Jr, DO in OV> 09/19/24 1138 Narrative [facility] - 09/19/2024 11:41 AM EDT [facility] [place] [address] CT Scan Report Signed Patient: Kelsea Turcios MR#: [id number] 58 : 1960 Acct:[id number] Age/Sex: 63 / F ADM Date: 09/19/24 Loc: CT Room: Type: [facility] Attending Dr: Roxane Bills MD Copies to: Roxane Bills MD Ordering Provider: Roxane Bills MD Date of Service: 09/19/24 CT/CT guided bone marrow bx/aspir: D47.2 - Monoclonal gammopathy CT GUIDED BONE MARROW BIOPSY OF THE [...] was advanced into the right iliac bone. 10ml of bone marrow was aspirated and given [...] CT/CT guided bone marrow bx/aspir Procedure Note Manish Mccurdy Jr., DO - 09/19/2024 [facility] [place] [address] CT Scan Report Signed Patient: Kelsea Turcios MMR#: [id number] 58 : 9Acct:[id number] Age/Sex: 63 / FADM Date: 09/19/24 Loc: CT Room:Type: [facility] Attending Dr: Roxane Bills MD Copies to: Roxane Bills MD Ordering Provider: Roxane Bills MD Date of Service: 09/19/24 CT/CT guided bone marrow bx/aspir: D47.2 -Monoclonal gammopathy CT GUIDED BONE MARROW BIOPSY OF THE [...] needle was advanced into the rightiliac bone. 10ml of bone marrow was aspirated and given [...] biopsy. Impression dictated by: Manish Mccurdy Jr., D.O. 09/19/2024 11:38 AM Dictation Location: [place] [address] Transcribed By: PWS 09/19/24 1138 Dictated By: Manish Mccurdy Jr, DO 09/19/24 1137 Signed By: <Electronically signed by Manish Mccurdy Jr, DO inOV> 09/19/24 1138 us Roxane Bills MD IN CLINIC/BEDSIDE ORDERABLES Fin al Result Performing Organization Address [facility] [place] [address], * PATHOLOGY REQUEST FOR LAB FADI (09/19/2024 10:15 AM EDT) PATHOLOGY REQUEST FOR LAB FADI 09/22/2024 8:00 AM EDT [facility] Comment:See report. Scanned copy available in EMR. Other Topography unknown / Unknown 09/19/2024 10:15 AM EDT 09/19/2024 10:15 AM EDT Roxane Bills MD LAB BLOOD ORDERABLES Final Resul t Performing Organization Address [facility] Co de Phone Number [place] [phone], [facility] [address] [place], [place] [phone] * COAGULATION PROFILE (09/19/2024 9:31 AM EDT) PROTHROMBIN TIME 11.8 9.0 - 12.9 s 09/19/2024 9:46 AM EDT [facility] Comment: A hematocrit value greater than 55% may lead to inaccurate results in coagulation testing. Patients having hematocrit values >55% require a special collection tube for coagulation studies. Please contact the laboratory at [phone] for redraw instructions. INR 1.0 09/19/2024 9:46 AM EDT [facility] Comment: INR Therapeutic Range A) Pre- and [...] with mechanical heart valves: 3 - 4.5 PARTIAL THROMBOPLASTIN TIME 29.9 25.1 - 36.5 s 09/19/2024 9:46 AM EDT [facility] Comment: A hematocrit value greater than 55% may lead to inaccurate results in coagulation testing. Patients having hematocrit values >55% require a special collection tube for coagulation studies. Please contact the laboratory at [phone] for redraw instructions. Other Topography unknown / Unknown 09/19/2024 9:31 AM EDT 09/19/2024 9:35 AM EDT [facility] - 09/19/2024 9:46 AM EDT STAT FOR BX us Roxane Bills MD LAB BLOOD ORDERABLES Final Resul t [facility] [address] [place] [address], [place] [address] [place] [phone] * (ABNORMAL) CBC auto differential (09/19/2024 9:31 AM EDT) Only the most recent of2 resultswithin the time period is included. WBC 11.3 3.8 - 11.6 10*3/uL 09/19/2024 9:39 AM EDT [facility] UNCORRECTED WHITE BLOOD COUNT 11.3 3.8 - 11.6 10*3/uL 09/19/2024 9:39 AM EDT [facility] RBC 4.56 3.60 - 5.00 10*6/uL 09/19/2024 9:39 AM EDT [facility] HEMOGLOBIN 13.0 11.8 - 15.4 g/dL 09/19/2024 9:39 AM EDT [facility] HEMATOCRIT 40.6 34.0 - 46.4 % 09/19/2024 9:39 AM EDT [facility] MCV 88.9 80 - 100 fL 09/19/2024 9:39 AM EDT [facility] MCH 28.4 24.7 - 34.3 pg 09/19/2024 9:39 AM EDT [facility] MCHC 32.0 32.0 - 35.0 g/dL 09/19/2024 9:39 AM EDT [facility] RED CELL DISTRIBUTION WIDTH, RDW 15.5(H) 11.9 - 15.3 % 09/19/2024 9:39 AM EDT [facility] PLATELET COUNT 227 150 - 450 10*3/uL 09/19/2024 9:39 AM EDT [facility] MEAN PLATELET VOLUME, MPV 6.9 6.3 - 10.7 fL 09/19/2024 9:39 AM EDT [facility] NEUTROPHILS, % 60.4 . % 09/19/2024 9:39 AM EDT [facility] LYMPHOCYTES, % 28.8 . % 09/19/2024 9:39 AM EDT [facility] MONOCYTE/MACROPHA GE, % 6.4 . % 09/19/2024 9:39 AM EDT [facility] EOSINOPHILS, % 3.8 . % 09/19/2024 9:39 AM EDT [facility] BASOPHILS, % 0.6 . % 09/19/2024 9:39 AM EDT [facility] NRBC 0.1 0 - 0.5 /100{WBC} 09/19/2024 9:39 AM EDT [facility] NEUTROPHILS 6.8 1.8 - 7.7 10*3/uL 09/19/2024 9:39 AM EDT [facility] LYMPHOCYTES 3.2 1.00 - 4.8 10*3/uL 09/19/2024 9:39 AM EDT [facility] MONOCYTES 0.7 0.0 - 0.8 10*3/uL 09/19/2024 9:39 AM EDT [facility] EOSINOPHILS 0.4 0.0 - 0.45 10*3/uL 09/19/2024 9:39 AM EDT [facility] BASOPHILS 0.1 0.0 - 0.2 10*3/uL 09/19/2024 9:39 AM EDT [facility] Blood (Blood) 09/19/2024 9:3 1 AM EDT 09/19/2024 9:35 AM EDT Narrative [facility] - 09/19/2024 9:39 AM EDT STAT FOR BX us Roxane Bills MD LAB BLOOD ORDERABLES Final Resul t Performing Organization Address [facility] Co de Phone Number [address] [address], [place] [address] [place] [phone] * Uric acid (09/19/2024 9:31 AM EDT) URIC ACID 6.5 2.3 - 6.6 mg/dL 09/19/2024 10:10 AM EDT [facility] Other Topography unknown / Unknown 09/19/2024 9:31 AM EDT 09/19/2024 9:35 AM EDT us Roxane Bills MD LAB BLOOD ORDERABLES Final Resul t Performing Organization Address [facility] de Phone Number [address] [address], [address] [address] * (ABNORMAL) Comprehensive metabolic panel (09/19/2024 9:31 AM EDT) Only the most recent of2 resultswithin the time period is included. Glucose 252(H) 70 - 100 mg/dL 09/19/2024 10:10 AM EDT [facility] Comment: Random Glucose Reference Range is dependent on time and content of last meal. Glucose of more than 200 mg/dL in a nonstressed, ambulatory subject supports the diagnosis of Diabetes Mellitus. ADA recommended reference range BUN 21 7 - 25 mg/dL 09/19/2024 10:10 AM EDT [facility] CREATININE 1.36(H) 0.60 - 1.20 mg/dL 09/19/2024 10:10 AM EDT [facility] ESTIMATED GFR 43.228 mL/Min [facility] S[facility] 140 136 - 145 mmol/L [facility] Potassium, Bld 4.4 3.5 - 5.1 mmol/L 09/19/2024 [facility] Chloride 98 98 - 107 mmol/L 09/19/2024 10:10 AM EDT [facility] Carbon Dioxide 34.2(H) 21.0 - 31.0 mmol/L 09/19/2024 10:10 AM [facility] Anion Gap 12.2 6.0 - 15.0 meq/L 09/19/2024 10:10 AM [facility] Calcium 9.2 8.6 - 10.3 mg/dL 09/19/2024 10:10 AM [facility] TOTAL PROTEIN 7.6 6.4 - 8.9 g/dL 09/19/2024 10:10 AM [facility] ALBUMIN LEVEL 3.7 3.5 - 5.7 g/dL 09/19/2024 10:10 AM [facility] GLOBULIN 3.9 g/dL 09/19/2024 10:10 AM [facility] ALBUMIN/GLOBULIN RATIO 0.9 09/19/2024 10:10 AM [facility] BILIRUBIN,TOTAL 0.3 0.3 - 1.0 mg/dL 09/19/2024 10:10 AM [facility] ASPARTATE AMINO TRANSFERASE 27 13 - 39 U/L 09/19/2024 10:10 AM [facility] ALANINE AMINOTRANSFERASE 34 7 - 52 U/L 09/19/2024 10:10 AM [facility] ALKALINE PHOSPHATASE 147(H) 34 - 104 U/L 09/19/2024 10:10 AM [facility] CREATININE CLR [facility] 45.49 09/19/2024 10:10 AM [facility] Other Topography unknown / Unknown 09/19/2024 9:31 AM EDT 09/19/2024 9:35 AM EDT Roxane Bills MD LAB BLOOD ORDERABLES Final Resul t Performing Organization Address [facility] Co de Phone Number [address] [address], [place] [address] [place] [address] * (ABNORMAL) FREE K+L LT CHAINS, QN, S (08/23/2024 11:34 AM EDT) FREE KAPPA LIGHT CHAINS, S 281.2(H) 3.3 - 19.4 mg/L 08/24/2024 3:08 PM EDT [facility] FREE LAMBDA LIGHT CHAINS, S 33.7(H) 5.7 - 26.3 mg/L 08/24/2024 3:08 PM EDT [facility] KAPPA/LAMBDA RATIO, S 8.34(H) 0.26 - 1.65 08/24/2024 3:08 PM EDT [facility] Comment: Performed at: - [facility] [id number] Script Writer: Jhoan Rich PhD, Phone: [phone] Other Topography unknown / Unknown 08/23/2024 11:34 AM EDT 08/23/2024 11:34 AM EDT Roxane Bills MD LAB BLOOD ORDERABLES Final Resul t Performing Organization Address City/[facility] [place] [address], * (ABNORMAL) IMMUNOFIXATION,SERUM ([facility]) (08/23/2024 11:34 AM EDT) IMMUNOFIXATION, SERUM Comment(A A) . 08/25/2024 2:08 PM EDT [facility] Comment: 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 PLEASE NOTE: Samples from patients receiving DARZALEX(R) (daratumumab) or SARCLISA(R)(isatuximab-irfc) treatment can appear as an IgG kappa and mask a complete response (CR). If this patient is receiving these therapies, this MITCH assay interference can be removed by ordering test number [id number]- Immunofixation, Daratumumab-Specific, Serum or [id number]- Immunofixation, Isatuximab-Specific, Serum and submitting a new sample for testing or by calling the lab to add this test to the current sample. IMMUNOGLOBULIN G 1,832(H) 586 - 1,602 mg/dL 08/25/2024 2:08 PM EDT [facility] IMMUNOGLOBULIN A, SERUM 546(H) 87 - 352 mg/dL 08/25/2024 2:08 PM EDT [facility] IMMUNOGLOBULIN M, SERUM 97 26 - 217 mg/dL 08/25/2024 2:08 PM T [facility] Comment: Performed at: [facility] [id number] Script Writer: Jhoan Rich PhD, Phone: [phone] Other Topography unknown / Unknown 08/23/2024 11:34 AM EDT 08/23/2024 11:34 AM EDT us Roxane Bills MD LAB BLOOD ORDERABLES Final Resul t [facility] [address] [place] [address], * (ABNORMAL) Iron and TIBC (08/23/2024 11:34 AM EDT) IRON 57 50 - 212 ug/dL 08/23/2024 1:15 PM EDT [facility] TOTAL IRON BINDING CAPACITY 364 255 - 450 ug/dL 08/23/2024 1:15 PM T [facility] % IRON SATURATION 15.7(L) 20 - 50 % 08/23/2024 1:15 PM [facility] TRANSFERRIN 260 203 - 362 mg/dL 08/23/2024 1:15 PM [facility] Other Topography unknown / Unknown 08/23/2024 11:34 AM EDT 08/23/2024 11:34 AM EDT us Roxane Bills MD LAB BLOOD ORDERABLES Final Resul t [facility] [address] [place] [address], [place] [address] [place] [address] * (ABNORMAL) Protein electrophoresis, serum (08/23/2024 11:34 AM EDT) TOTAL PROTEIN, SERUM 7.7 6.0 - 8.5 g/dL 08/24/2024 2:36 PM EDT [facility] ALBUMIN, SERUM 3.3 2.9 - 4.4 g/dL 08/24/2024 2:36 PM EDT [facility] [id number] 0.3 0.0 - 0.4 g/dL 08/24/2024 2:36 PM EDT [facility] [id number] 1.0 0.4 - 1.0 g/dL 08/24/2024 2:36 PM EDT [facility] BETA GLOBULIN 1.3 0.7 - 1.3 g/dL 08/24/2024 2:36 PM EDT [facility] GAMMA GLOBULIN 1.7 0.4 - 1.8 g/dL 08/24/2024 2:36 PM EDT [facility] M-SPIKE 1.0(H) Not Observed g/dL 08/24/2024 2:36 PM EDT [facility] GLOBULIN, TOTAL 4.4(H) 2.2 - 3.9 g/dL 08/24/2024 2:36 PM EDT [facility] A/G RATIO 0.8 0.7 - 1.7 08/24/2024 2:36 PM EDT [facility] SPE-NOTE Comment . 08/24/2024 2:36 PM EDT [facility] Comment: Protein electrophoresis scan will follow via computer, mail, or plant wrapper delivery. Performed at: [facility] [address] [id number] Script Writer: Jhoan Rich PhD, Phone: [phone] Other Topography unknown / Unknown 08/23/2024 11:34 AM EDT 08/23/2024 11:34 AM EDT Roxane Bills MD LAB BLOOD ORDERABLES Final Resul t Performing Organization Address City/[facility]/ZIP Co de Phone Number [address] [address], * (ABNORMAL) Lactate dehydrogenase (08/23/2024 11:34 AM EDT) LDH LACTATE DEHYDROGENASE 277(H) 140 - 271 U/L 08/23/2024 1:15 PM EDT [facility] Other Topography unknown / Unknown 08/23/2024 11:34 AM EDT 08/23/2024 11:34 AM EDT Roxane Bills MD LAB BLOOD ORDERABLES Final Resul t Performing Organization Address [facility] Co de Phone Number [address] [address], [address] [address] * Ferritin (08/23/2024 11:34 AM EDT) Pathologist [facility] FERRITIN 101.2 11.0 - 306.8 ng/mL 08/23/2024 2:49 PM EDT [facility] Other Topography unknown / Unknown 08/23/2024 11:34 AM EDT 08/23/2024 11:34 AM EDT Roxane Bills MD LAB BLOOD ORDERABLES Final Resul t Performing Organization Address [facility] Co de Phone Number [address] [address], [place] [address] [place] [address] * POCT glycosylated hemoglobin (Hb A1C) docked device (08/22/2024 11:44 AM EDT) Pathologist [facility] [place] Hemoglobin A1C 10.9 Blood Venous blood specimen [...] Result from Last 3 Months Insurance MEDICAID [place] AET[place] MEDICARE ADVANTAGE Care Teams Adjunct Instructor Of Women'S Studies Relationship Specialty Start Date End Date Giovanni Moreno MD [address] [place] [address] PCP - General Family Medicine 09/18/22
--- OUTSIDE RECORDS SUMMARY | 2024-09-26 10:52 | XMS_ITS | Clinical Summary ---
Author Organization [facility] Address [address] [place] [address] Phone Care Team Providers Care Freight Coordinator Name Role Phone Unavailable Primary Care Provider Unavailabl e Social History Tobacco Use Types Packs/Day Years Used Date Smoking Tobacco: Never Assessed Comments Unknown Sex and Gender Information Value Date Recorded Sex Assigned at Not on file Legal Sex Female 6:30 PM EST Gender Identity Not on file Sexual Orientation Not on file Plan of Treatment Not on file
--- OUTSIDE RECORDS SUMMARY | 2024-09-26 10:52 | XMS_ITS | Encounter Summary ---
Author Organization [facility] Address [address] [place] [address] Care Team Providers Care Clinical Radiologist Name Role Phone Giovanni Moreno MD Primary Care Provider Encounter Details Date Type Department Care Team (Late Contact Info) Description 09/19/2024 External Result Encounter [facility] External Department Unsolicited Roxane Bills MD [address] [place] [address] Social History Tobacco Use Types [...] EDT Office Visit [facility] SC POD [address] [place] [address] Mack Pride DPM [address] [address] 11/21/2024 11:30 AM EDT Office Visit [facility] ENDOCRINOLOGY [address] [place] [address] Jeannie Aguilar MD [address] [place] [address] 03/07/2025 2:00 PM EST Office Visit [facility] SH PULM [address] [place] [phone] Radha Svetlana Alexys, DO [address] [place] [address] documented as of this encounter Procedures Procedure Name Priority Date/Time Associated Diagnosis Comments CBC WITH AUTO DIFFERENTIAL STAT 09/19/2024 9:31 AM EDT documented in this encounter Results * (ABNORMAL) CBC auto differential (09/19/2024 9:31 AM EDT) WBC 11.3 3.8 - 11.6 10*3/uL 09/19/2024 9:39 AM EDT [facility] UNCORRECTED WHITE BLOOD COUNT 11.3 3.8 - 11.6 10*3/uL 09/19/2024 9:39 AM EDT [facility] RBC 4.56 3.60 - 5.00 10*6/uL 09/19/2024 9:39 AM EDT [facility] HEMOGLOBIN 13.0 11.8 - 15.4 g/dL 09/19/2024 9:39 AM EDT [facility] HEMATOCRIT 40.6 34.0 - 46.4 % 09/19/2024 9:39 AM EDT [facility] MCV 88.9 80 - 100 fL 09/19/2024 9:39 AM EDT [facility] MCH 28.4 24.7 - 34.3 pg 09/19/2024 9:39 AM EDT [facility] MCHC 32.0 32.0 - 35.0 g/dL 09/19/2024 9:39 AM EDT [facility] RED CELL DISTRIBUTION WIDTH, RDW 15.5(H) 11.9 - 15.3 % 09/19/2024 9:39 AM EDT [facility] PLATELET COUNT 227 150 - 450 10*3/uL 09/19/2024 9:39 AM EDT [facility] MEAN PLATELET VOLUME, MPV 6.9 6.3 - 10.7 fL 09/19/2024 9:39 AM EDT [facility] NEUTROPHILS, % 60.4 . % 09/19/2024 9:39 AM EDT [facility] LYMPHOCYTES, % 28.8 . % 09/19/2024 9:39 AM EDT [facility] MONOCYTE/MACROPHA GE, % 6.4 . % 09/19/2024 9:39 AM EDT [facility] EOSINOPHILS, % 3.8 . % 09/19/2024 9:39 AM EDT [facility] BASOPHILS, % 0.6 . % 09/19/2024 9:39 AM EDT [facility] NRBC 0.1 0 - 0.5 /100{WBC} 09/19/2024 9:39 AM EDT [facility] NEUTROPHILS 6.8 1.8 - 7.7 10*3/uL 09/19/2024 9:39 AM EDT [facility] LYMPHOCYTES 3.2 1.00 - 4.8 10*3/uL 09/19/2024 9:39 AM EDT [facility] MONOCYTES 0.7 0.0 - 0.8 10*3/uL 09/19/2024 9:39 AM EDT [facility] EOSINOPHILS 0.4 0.0 - 0.45 10*3/uL 09/19/2024 9:39 AM EDT [facility] BASOPHILS 0.1 0.0 - 0.2 10*3/uL 09/19/2024 9:39 AM EDT [facility] Blood (Blood) 09/19/2024 9:3 1 AM EDT 09/19/2024 9:35 AM EDT Narrative [facility] - 09/19/2024 9:39 AM EDT STAT FOR BX Roxane Bills MD LAB BLOOD ORDERABLES Final Resul t [facility] [address] [place] [address], [facility] [address] [place] [address] documented in this encounter Visit Diagnoses Not on filedocumented in this encounter Care Teams Clinical Radiologist Relationship Specialty Start Date End Date Giovanni Moreno MD [address] [place] [address] PCP - General Family Medicine 09/18/22 documented as of this encounter
--- OUTSIDE RECORDS SUMMARY | 2024-09-26 10:52 | XMS_ITS | Encounter Summary ---
Author Organization [facility] Address [address] [place] [address] Care Team Providers Care Miner Operator Name Role Phone Giovanni Moreno MD Primary Care Provider + [phone] Encounter Details Date Type Department Care Team ([facility] Contact Info) Description 01/29/2023 Abstract [facility] PULM [address] [place] [address] Svetlana Garcia DO [address] [place] [address] Social History Tobacco Use Types Packs/Day Years [...] EDT Office Visit [facility] SC POD [address] [place] [address] Mack Pride DPM [address] [address] 11/21/2024 11:30 AM EDT Office Visit [facility] ENDOCRINOLOGY [address] [place] [address] Jeannie Aguilar MD [address] [place] [address] 03/07/2025 2:00 PM EST Office Visit [facility] PULM [address] [facility] [place] [address] Svetlana Garcia DO [address] [facility] [place] [address] documented as of this encounter Visit Diagnoses Not on filedocumented in this encounter Care Teams Miner Operator Relationship Specialty Start Date End Date Giovanni Moreno MD [address] [place] [address] PCP - General Family Medicine 09/18/22 documented as of this encounter
--- OUTSIDE RECORDS SUMMARY | 2024-09-26 10:52 | XMS_ITS | Encounter Summary ---
Author Organization [facility] Address [address] [place] [address] Care Team Providers Care Automatic Data Processing Planner Name Role Phone Giovanni Moreno MD Primary Care Provider Encounter Details Date Type Department Care Team (Late Contact Info) Description 09/19/2024 External Result Encounter NOMS External Department Unsolicited Roxane Bills MD [address] [place] [address] Social History Tobacco Use Types [...] EDT Office Visit [facility] SC POD [address] [place] [address] Mack Pride DPM [address] [address] 11/21/2024 11:30 AM EDT Office Visit [facility] ENDOCRINOLOGY [address] [place] [address] Jeannie Aguilar MD [address], [address] [place] [address] 03/07/2025 2:00 PM EST Office Visit [facility] SH PULM [address] [place] [address] RadhaSvetlana menjivar, DO [address] [place] [address] documented as of this encounter Procedures Procedure Name Priority Date/Time Associated Diagnosis Comments COAGULATION PROFILE STAT 09/19/2024 9 :31 AM EDT documented in this encounter Results * COAGULATION PROFILE (09/19/2024 9:31 AM EDT) PROTHROMBIN TIME 11.8 9.0 - 12.9 s 09/19/2024 9:46 AM [facility] Comment: A hematocrit value greater than 55% may lead to inaccurate results in coagulation testing. Patients having hematocrit values >55% require a special collection tube for coagulation studies. Please contact the laboratory at [phone] for redraw instructions. INR 1.0 09/19/2024 9:46 AM [facility] Comment: INR Therapeutic Range A) Pre- and [...] 25.1 - 36.5 s 09/19/2024 9:46 AM [facility] Comment: A hematocrit value greater than 55% may lead to inaccurate results in coagulation testing. Patients having hematocrit values >55% require a special collection tube for coagulation studies. Please contact the laboratory at [phone] for redraw instructions. Other Topography unknown / Unknown 09/19/2024 9:31 AM EDT 09/19/2024 9:35 AM EDT [facility] - 09/19/2024 9:46 AM EDT STAT FOR BX us Roxane Bills MD LAB BLOOD ORDERABLES Final Resul t [facility] [address] [place] [address], [facility] [address] [place] [address] documented in this encounter Visit Diagnoses Not on filedocumented in this encounter Care Teams Automatic Data Processing Planner Relationship Specialty Start Date End Date Giovanni Moreno MD [address] [place] [address] PCP - General Family Medicine 09/18/22 documented as of this encounter
--- OUTSIDE RECORDS SUMMARY | 2024-09-26 10:52 | XMS_ITS | Encounter Summary ---
Author Organization [facility] Address [address] [place] [address] Phone Care Team Providers Care Clay Products Glazer Name Role Phone Unavailable Primary Care Provider Unavailabl e Encounter Details Date Type Department Care Team (Late st Contact Info) Description 12/25/2021 Orders Only [facility] [address] [place] [address] Conversion, Onbase Social History Tobacco Use Types [...]
--- OUTSIDE RECORDS SUMMARY | 2024-09-26 10:52 | XMS_ITS | Encounter Summary ---
Author Organization [facility] Address [address] [place] [address] Care Team Providers Care Tea Bag Packer Name Role Phone Giovanni Moreno MD Primary Care Provider [phone] Encounter Details Date Type Department Care Team (Late Contact Info) Description 09/19/2024 External Result Encounter NOMS External Department Unsolicited Roxane Bills MD [address] [place] [address] Social History Tobacco Use Types [...] EDT Office Visit [facility] SC POD [address] [place] [address] Mack Pride DPM [address] [address] 11/21/2024 11:30 AM EDT Office Visit [facility] ENDOCRINOLOGY [address] [place] [address] Jeannie Aguilar MD [address], [address] [place] [address] 03/07/2025 2:00 PM EST Office Visit [facility]YA PULM [address] [place] [address] Svetlana Garcia Alexys, DO [address] [place] [address] documented as of this encounter Procedures Procedure Name Priority Date/Time Associated Diagnosis Comments BIOPSY BONE MARROW 09/19/2024 11 :37 AM EDT documented in this encounter Results * Biopsy bone marrow (09/19/2024 11:37 AM EDT) 09/19/2024 11:3 7 AM EDT Impressions [facility] - 09/19/2024 11:[address]-guided bone marrow biopsy. Impression dictated by: Manish Mccurdy Jr., DJaneOJane 09/19/2024 11:38 AM Dictation Location: [place] [address] Transcribed By: [facility] 09/19/24 1138 Dictated By: Manish Mccurdy Jr, DO 09/19/24 1137 Signed By: <Electronically signed by Manish Mccurdy Jr, DO in OV> 09/19/24 1138 Narrative [facility] - 09/19/2024 11:41 AM EDT [facility] Main [address] [address] [address] Scan Report Signed Patient: Kelsea Turcios MR#: [id number] : 1960 Acct:[id number] Age/Sex: 63 / F ADM Date: 09/19/24 Loc: CT Room: Type: [facility] Attending Dr: Roxane Bills MD Copies [...] Note Manish Mccurdy Jr., DO - 09/19/2024 [facility] Main [place] [address] [place] [address] CT Scan Report Signed Patient: Kelsea Turcios MMR#: [id number] : 9Acct:[id number] Age/Sex: 63 / FADM Date: 09/19/24 Loc: CT Room:Type: [facility] Attending Dr: Roxane Bills MD Copies [...] biopsy. Impression dictated by: Manish Mccurdy Jr., D.OJane 09/19/2024 11:38 AM Dictation Location: [place] [address] Transcribed By: [facility] 09/19/24 1138 Dictated By: Manish Mccurdy Jr, DO 09/19/24 1137 Signed By: <Electronically signed by Manish Mccurdy Jr, DO inOV> 09/19/24 1138 us Roxane Bills MD IN CLINIC/BEDSIDE ORDERABLES Fin al Result Performing Organization Address [facility] Co de Phone Number [facility] [address] [place] [address], documented in this encounter Visit Diagnoses Not on filedocumented in this encounter Care Teams Tea Bag Packer Relationship Specialty Start Date End Date Giovanni Moreno MD [address] [place] [address] PCP - General Family Medicine 09/18/22 documented as of this encounter
--- OUTSIDE RECORDS SUMMARY | 2024-09-26 10:52 | XMS_ITS | Encounter Summary ---
Author Organization [facility] Address [address] [place] [address] Care Team Providers Care Rail Filler Name Role Phone Giovanni Moreno MD Primary Care Provider + [phone] Encounter Details Date Type Department Care Team ([facility] Contact Info) Description 2022 Abstract [facility] PULM [address] [place] [address] Svetlana Garcia DO [address] [place] [address] Social History Tobacco Use Types Packs/Day Years [...] EDT Office Visit [facility] SC POD [address] [place] [address] Mack Pride DPM [address] [address] 11/21/2024 11:30 AM EDT Office Visit [facility] ENDOCRINOLOGY [address] [place] [address] Jeannie Aguilar MD [address] [place] [address] 03/07/2025 2:00 PM EST Office Visit [facility] PULM [address] [facility] [place] [address] Svetlana Garcia DO [address] [facility] [place] [address] documented as of this encounter Visit Diagnoses Not on filedocumented in this encounter Care Teams Rail Filler Relationship Specialty Start Date End Date Giovanni Moreno MD [address] [place] [address] PCP - General Family Medicine 09/18/22 documented as of this encounter
--- OUTSIDE RECORDS SUMMARY | 2024-09-26 10:52 | XMS_ITS | Encounter Summary ---
Author Organization [facility] Address [address] [place] [address] Care Team Providers Care Career Agent Name Role Phone Giovanni Moreno MD Primary Care Provider [phone] Reason for Visit * Reason Comments Med Refill Encounter Details Date Type Department Care Team ([facility] Contact Info) Description 09/09/2024 Refill [facility] ENDOCRINOLOGY [address] [place] [address] Jeannie Aguilar MD [address] [place] [address] Type 2 diabetes mellitus with hyperglycemia, with long-term current use of insulin (HCC) Social History Tobacco Use Types Packs/Day Years [...] Upcoming Encounters Date Type Department Care Team ([facility] Contact Info) Description 09/30/2024 10:10 AM EDT Office Visit [facility] SC POD [address] [facility] [place] [address] Mack Pride DPM [address] [facility] [address] [place] [address] 11/21/2024 11:30 AM EDT Office Visit [facility] ENDOCRINOLOGY [address] [place] [address] Jeannie Aguilar MD [address] [place] [address] 03/07/2025 2:00 PM EST Office Visit [facility] PULM [address] [facility] [place] [address] Svetlana Garcia DO [address] [place] [address] documented as of this encounter Visit Diagnoses Diagnosis Type 2 diabetes mellitus with hyperglycemia, with long-term current use of insulin (HCC) documented in this encounter Care Teams Career Agent Relationship Specialty Start Date End Date Giovanni Moreno MD [address] [place] [address] PCP - General Family Medicine 09/18/22 documented as of this encounter
--- OUTSIDE RECORDS SUMMARY | 2024-09-26 10:52 | XMS_ITS | Encounter Summary ---
Author Organization [facility] Address [address] [place] [address] Care Team Providers Care Date Night Caregiver Name Role Phone Giovanni Moreno MD Primary Care Provider [phone] Encounter Details Date Type Department Care Team (Late Contact Info) Description 09/02/2022 Abstract [facility] [address] [place] [address] Lien Oglesby MA Social History Tobacco Use [...] 09/30/2024 10:10 AM EDT Office Visit [facility] POD [address] [place] [address] Mack Pride DPM [address] [address] 11/21/2024 11:30 AM EDT Office Visit [facility] ENDOCRINOLOGY [address] [place] [address] Jeannie Aguilar MD [address] [place] [address] 03/07/2025 2:00 PM EST Office Visit [facility]YA PULM [address] [place] [address] Svetlana Garcia, [address] [place] [address] documented as of this encounter Visit Diagnoses Not on filedocumented in this encounter Care Teams Date Night Caregiver Relationship Specialty Start Date End Date Giovanni Moreno MD [address] [facility] [place] [address] PCP - General Family Medicine 09/18/22 documented as of this encounter
--- OUTSIDE RECORDS SUMMARY | 2024-09-26 10:52 | XMS_ITS | Encounter Summary ---
Author Organization [facility] Address [address] [place] [address] Care Team Providers Care Shipping Services Sales Representative Name Role Phone Giovanni Moreno MD Primary Care Provider + [phone] Reason for Visit * Reason Comments Med Refill Encounter Details Date Type Department Care Team ([facility] Contact Info) Description 09/25/2022 Refill [facility] SC POD [address] [place] [address] Mack Pride DPM [address] [place] [phone] Social History Tobacco Use Types Packs/Day Years [...] Upcoming Encounters Date Type Department Care Team ([facility] Contact Info) Description 09/30/2024 10:10 AM EDT Office Visit [facility] SC POD [address] [place] [address] Mack Pride DPM [address] [address] 11/21/2024 11:30 AM EDT Office Visit [facility] ENDOCRINOLOGY [address] [place] [address] Jeannie Aguilar MD [address] [place] [address] 03/07/2025 2:00 PM EST Office Visit [facility] PULM [address] [facility] [place] [address] Svetlana Garcia DO [address] [facility] [place] [address] documented as of this encounter Visit Diagnoses Not on filedocumented in this encounter Care Teams Shipping Services Sales Representative Relationship Specialty Start Date End Date Giovanni Moreno MD [address] [place] [address] PCP - General Family Medicine 09/18/22 documented as of this encounter
--- OUTSIDE RECORDS SUMMARY | 2024-09-26 10:52 | XMS_ITS | Encounter Summary ---
Author Organization [facility] Address [address] [place] [address] Care Team Providers Care Supervisor Newspaper Deliveries Name Role Phone Giovanni Moreno MD Primary Care Provider [phone] Reason for Visit * Reason Comments Med Refill Encounter Details Date Type Department Care Team (Late Contact Info) Description 01/24/2023 Refill [facility] SC POD [address] [place] [address] Mack Pride DPM [address] [place] [phone] Diabetes mellitus due to underlying condition with diabetic polyneuropathy, with long-term current use of insulin (HCC) (Primary Dx) Social History Tobacco Use Types [...] EDT Office Visit [facility] SC POD [address] [place] [address] Mack Pride DPM [address] [address] 11/21/2024 11:30 AM EDT Office Visit [facility] ENDOCRINOLOGY [address] [place] [address] Jeannie Aguilar MD [address] [place] [address] 03/07/2025 2:00 PM EST Office Visit [facility] PULM [address] [facility] [place] [address] Svetlana Garcia DO [address] [facility] [place] [address] documented as of this encounter Visit Diagnoses Diagnosis Diabetes mellitus due to underlying condition with diabetic polyneuropathy, with long-term current use of insulin (HCC)- Primary documented in this encounter Care Teams Supervisor Newspaper Deliveries Relationship Specialty Start Date End Date Giovanni Moreno MD [address] [place] [address] PCP - General Family Medicine 09/18/22 documented as of this encounter
--- OUTSIDE RECORDS SUMMARY | 2024-09-26 10:52 | XMS_ITS | Encounter Summary ---
Author Organization [facility] Address [address] [place] [address] Care Team Providers Care Bank President Name Role Phone Giovanni Moreno MD Primary Care Provider [phone] Encounter Details Date Type Department Care Team (Late Contact Info) Description 09/18/2022 Abstract [facility] CI PODIATRY [address] [facility] [address] [place] [address] Mack Pride DPM [address] [address] Social History Tobacco Use Types [...] AM EDT Office Visit [facility] SC POD [address] [place] [address] Mack Pride DPM [address] [address] 11/21/2024 11:30 AM EDT Office Visit [facility] ENDOCRINOLOGY [address] [place] [address] Jeannie Aguilar MD [address] [place] [address] 03/07/2025 2:00 PM EST Office Visit [facility] PULM [address] [facility] [place] [address] Svetlana Garcia DO [address] [place] [address] documented as of this encounter Visit Diagnoses Not on filedocumented in this encounter Care Teams Bank President Relationship Specialty Start Date End Date Giovanni Moreno MD [address] [place] [address] PCP - General Family Medicine 09/18/22 documented as of this encounter
--- OUTSIDE RECORDS SUMMARY | 2024-09-26 10:52 | XMS_ITS | Encounter Summary ---
Author Organization [facility] Address [address] [place] [address] Care Team Providers Care Centrifugal Station Operator Name Role Phone Giovanni Moreno MD Primary Care Provider Encounter Details Date Type Department Care Team (Late Contact Info) Description 09/19/2024 External Result Encounter [facility] External Department Unsolicited Roxane Bills MD [address] [place] [address] Social History Tobacco Use Types [...] EDT Office Visit [facility] [address] [place] [address] Mack Pride DPM [address] [address] 11/21/2024 11:30 AM EDT Office Visit [facility] [address] [place] [address] Jeannie Aguilar MD [address] [place] [address] 03/07/2025 2:00 PM EST Office Visit [facility] [address] [place] [address] RadhaSvetlana, DO [address] [place] [address] documented as of this encounter Procedures Procedure Name Priority Date/Time Associated Diagnosis Comments URIC ACID Routine 09/19/2024 9:31 AM EDT COMPREHENSIVE METABOLIC PANEL Routine 09/19/2024 9:31 AM EDT documented in this encounter Results * Uric acid (09/19/2024 9:31 AM EDT) URIC ACID 6.5 2.3 - 6.6 mg/dL 09/19/2024 10:10 AM EDT [facility] Other Topography unknown / Unknown 09/19/2024 9:31 AM EDT 09/19/2024 9:35 AM EDT Roxane Bills MD LAB BLOOD ORDERABLES Final Resul t [facility] [address] [place] [address], [facility] [address] [place] [address] * (ABNORMAL) Comprehensive metabolic panel (09/19/2024 9:31 AM EDT) Glucose 252(H) 70 - 100 mg/dL 09/19/2024 10:10 AM EDT [facility] Comment: Random Glucose Reference Range is dependent on time and content of last meal. Glucose of more than 200 mg/dL in a nonstressed, ambulatory subject supports the diagnosis of Diabetes Mellitus. ADA recommended reference range BUN 21 7 - 25 mg/dL 09/19/2024 10:10 AM EDT [facility] CREATININE 1.36(H) 0.60 - 1.20 mg/dL 09/19/2024 10:10 AM EDT [facility] ESTIMATED GFR 43.228 mL/Min [facility] Sodium 140 136 - 145 mmol/L 09/19[facility]24 [facility] Potassium, Bld 4.4 3.5 - 5.1 mmol/L 09/19/2024 10:10 AM EDT [facility] Chloride 98 98 - 107 mmol/L 09/19/2024 [facility] Carbon Dioxide 34.2(H) 21.0 - 31.0 mmol/L 09/19/2024 10:10 AM T [facility] Anion Gap 12.2 6.0 - 15.0 meq/L 09/19/2024 10:10 AM [facility] Calcium 9.2 8.6 - 10.3 mg/dL 09/19/2024 10:10 AM [facility] TOTAL PROTEIN 7.6 6.4 - 8.9 g/dL 09/19/2024 10:10 AM [facility] ALBUMIN LEVEL 3.7 3.5 - 5.7 g/dL 09/19/2024 10:10 AM [facility] GLOBULIN 3.9 g/dL 09/19/2024 10:10 AM [facility] ALBUMIN/GLOBULIN RATIO 0.9 09/19/2024 10:10 AM [facility] BILIRUBIN,TOTAL 0.3 0.3 - 1.0 mg/dL 09/19/2024 10:10 AM [facility] ASPARTATE AMINO TRANSFERASE 27 13 - 39 U/L 09/19/2024 10:10 AM [facility] ALANINE AMINOTRANSFERASE 34 7 - 52 U/L 09/19/2024 10:10 AM [facility] ALKALINE PHOSPHATASE 147(H) 34 - 104 U/L 09/19/2024 10:10 AM [facility] CREATININE CLR CALC PHARMACY 45.49 09/19/2024 10:10 AM [facility] Other Topography unknown / Unknown 09/19/2024 9:31 AM EDT 09/19/2024 9:35 AM EDT us Roxane Bills MD LAB BLOOD ORDERABLES Final Resul t Performing Organization Address City/State/[facility] Co de Phone Number [facility] [address] [place] [address], [facility] [address] [place] [address] documented in this encounter Visit Diagnoses Not on filedocumented in this encounter Care Teams Centrifugal Station Operator Relationship Specialty Start Date End Date Giovanni Moreno MD [address] [place] [address] PCP - General Family Medicine 09/18/22 documented as of this encounter
--- OUTSIDE RECORDS SUMMARY | 2024-09-26 10:52 | XMS_ITS | Encounter Summary ---
Author Organization [facility] Address [address] [place] [address] Care Team Providers Care Biosecurity Officer Name Role Phone Giovanni Moreno MD Primary Care Provider Encounter Details Date Type Department Care Team (Late Contact Info) Description 02/12/2023 External Result Encounter [facility] External Department Unsolicited Roxane Bills MD [address] [place] [address] Social History Tobacco Use Types [...] EDT Office Visit [facility] [address] [place] [address] Mack Pride DPM [address] [address] 11/21/2024 11:30 AM EDT Office Visit [facility] [address] [place] [address] Jeannie Aguilar MD [address] [place] [address] 03/07/2025 2:00 PM EST Office Visit [facility] [address] [place] [address] Svetlana Garcia Alexys, DO [address] [place] [address] documented as of this encounter Procedures Procedure [...] Mccurdy Jr., D.OJane02/12/2023 11:44 AM Dictation Location: [place] [address] Transcribed By: [facility] 02/12/23 1144 Dictated By: Manish Mccurdy Jr, DO 02/12/23 1137 Signed By: <Electronically signed by Manish Mccurdy Jr, DO in OV> 02/12/23 1144 Narrative 02/24/2023 12:16 PM EST [facility] Main [address] [address] [place] Scan Report Signed Patient: Kelsae Turcios MR#: [id number] [birth year] : 1960 Acct:[id number] Age/Sex: 62 / F ADM Date: 02/12/23 Loc: CT Room: Type: [facility] Attending Dr: Roxane Bills MD Copies to: Roxane Bills MD Ordering Provider: Roxane Bills MD Date of Service: 02/12/23 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 CT GUIDED [...] bone marrow bx/aspir Procedure Note Radiology, Radiologist, - 02/24/2023 [facility] Main [place] [address] [place] [address] CT Scan Report Signed Patient: Kelsea Turcios MMR#: [id number] [birth year] : 9Acct:[id number] Age/Sex: 62 / FADM Date: 02/12/23 Loc: CT Room:Type: [facility] Attending Dr: Roxane Bills MD Copies to: Roxane Bills MD Ordering Provider: Roxane Bills MD Date of Service: 02/12/23 CT/CT guided bone marrow bx/aspir: MGUS ([id number]) CT/CT guided needle placement: . CT GUIDED [...] Mccurdy Jr., D.O.02/12/2023 11:44 AM Dictation Location: [place] [address] Transcribed By: [facility] 02/12/23 1144 Dictated By: Manish Mccurdy Jr, DO 02/12/23 1137 Signed By: <Electronically signed by Manish Mccurdy Jr, DO inOV> 02/12/23 1144 Roxane Bills MD IMG CT PROCEDURES Final Result documented in this encounter Visit Diagnoses Not on filedocumented in this encounter Care Teams Biosecurity Officer Relationship Specialty Start Date End Date Giovanni Moreno MD [address] [place] [address] PCP - General Family Medicine 09/18/22 documented as of this encounter
--- OUTSIDE RECORDS SUMMARY | 2024-09-26 10:52 | XMS_ITS | Encounter Summary ---
Author Organization [facility] Address [address] [place] [address] Care Team Providers Care Printing Shop Supervisor Name Role Phone Giovanni Moreno MD Primary Care Provider + [phone] Reason for Visit * Reason Comments Med Refill Encounter Details Date Type Department Care Team ([facility] Contact Info) Description 12/05/2022 Refill [facility] [address] [place] [phone] Svetlana Garcia, DO [address] [place] [address] Chronic obstructive pulmonary disease, unspecified (HCC) Social History Tobacco Use Types Packs/Day [...] Upcoming Encounters Date Type Department Care Team ([facility] Contact Info) Description 09/30/2024 10:10 AM EDT Office Visit [facility] [address] [place] [address] Mack Pride DPM [address] [facility] [address] [place] [address] 11/21/2024 11:30 AM EDT Office Visit [facility] [address] [place] [address] Jeannie Aguilar MD [address] [place] [address] 03/07/2025 2:00 PM EST Office Visit [facility] [address] [place] [address] Svetlana Garcia DO [address] [place] [address] documented as of this encounter Visit Diagnoses Diagnosis Chronic obstructive pulmonary disease, unspecified (HCC) documented in this encounter Care Teams Printing Shop Supervisor Relationship Specialty Start Date End Date Giovanni Moreno MD [address] [place] [address] PCP - General Family Medicine 09/18/22 documented as of this encounter
--- OUTSIDE RECORDS SUMMARY | 2024-09-26 10:52 | XMS_ITS | Encounter Summary ---
Author Organization [facility] Address [address] [place] [address] Care Team Providers Care Pastoral Worker Name Role Phone Giovanni Moreno MD Primary Care Provider Encounter Details Date Type Department Care Team (Late Contact Info) Description 09/19/2024 External Result Encounter [facility] External Department Unsolicited Roxane Bills MD [address] [place] [address] Social History Tobacco Use Types [...] EDT Office Visit [facility] [address] [place] [address] Mack Pride DPM [address] [address] 11/21/2024 11:30 AM EDT Office Visit [facility] [address] [place] [address] Jeannie Aguilar MD [address] [place] [address] 03/07/2025 2:00 PM EST Office Visit [facility] [address] [place] [address] Svetlana Garcia Alexys, DO [address] [place] [address] documented as of this encounter Procedures Procedure Name Priority Date/Time Associated Diagnosis Comments PATHOLOGY REQUEST FOR LAB FADI Routine 09/19/2024 10:15 AM EDT documented in this encounter Results * PATHOLOGY REQUEST FOR LAB FADI (09/19/2024 10:15 AM EDT) PATHOLOGY REQUEST FOR LAB FADI 09/22/2024 8:00 AM EDT [facility] Comment:See report. Scanned copy available in EMR. Other Topography unknown / Unknown 09/19/2024 10:15 AM EDT 09/19/2024 10:15 AM EDT us Roxane Bills MD LAB BLOOD ORDERABLES Final Resul t [facility] [address] [place] [address], [facility] [address] [place] [address] documented in this encounter Visit Diagnoses Not on filedocumented in this encounter Care Teams Pastoral Worker Relationship Specialty Start Date End Date Giovanni Moreno MD [address] [place] [address] PCP - General Family Medicine 09/18/22 documented as of this encounter
--- OUTSIDE RECORDS SUMMARY | 2024-09-26 10:52 | XMS_ITS | Encounter Summary ---
Author Organization [facility] Address [address] [place] [address] Care Team Providers Care Incinerator Operator Name Role Phone Giovanni Moreno MD Primary Care Provider Encounter Details Date Type Department Care Team (Late Contact Info) Description 02/06/2023 External Result Encounter [facility] External Department Unsolicited Roxane Bills MD [address] [place] [address] Social History Tobacco Use Types [...] EDT Office Visit [facility] [address] [place] [address] Mack Pride DPM [address] [address] 11/21/2024 11:30 AM EDT Office Visit [facility] [address] [place] [address] Jeannie Aguilar MD [address] [place] [address] 03/07/2025 2:00 PM EST Office Visit [facility] [address] [place] [address] Svetlana Garcia Alexys, DO [address] [place] [address] documented as of this encounter Procedures Procedure [...] Domenico Brown M.D.02/06/2023 4:08 PM Dictation Location: [place] [address] Transcribed By: [facility] 02/06/23 1608 Dictated By: Domenico Brown DO 02/06/23 1606 Signed By: <Electronically signed by Domenico Brown DO in OV> 02/06/23 1608 Narrative 02/24/2023 12:16 PM EST [facility] Main [address] [address] XRay Report Signed Patient: Kelsea Turcios MR#: [id number] 58 : 1960 Acct:[id number] Age/Sex: 62 / F ADM Date: 02/06/23 Loc: XT [facility]: [facility] Attending Dr: Roxane Bills MD Copies [...] survey Procedure Note Radiology, Radiologist, - 02/24/2023 [facility] Main [place] [address] [place] [address] XRay Report Signed Patient: Kelsea Turcios MMR#: [id number] 58 : 9Acct:[id number] Age/Sex: 62 / FADM Date: 02/06/23 Loc: Room:Type: [facility] RCR Attending Dr: Roxane Bills MD [...] Domenico Brown M.D.02/06/2023 4:08 PM Dictation Location: [place] [address] Transcribed By: [facility] 02/06/23 1608 Dictated By: Domenico Brown DO 02/06/23 1606 Signed By: <Electronically signed by Domenico Brown DO in OV> 02/06/23 1608 us Roxane Bills MD IMG XR PROCEDURES Final Result documented in this encounter Visit Diagnoses Not on filedocumented in this encounter Care Teams Incinerator Operator Relationship Specialty Start Date End Date Giovanni Moreno MD [address] [place] [address] PCP - General Family Medicine 09/18/22 documented as of this encounter
[2024-09-26 11:13] VITALS: BP 155/93; PULSE 80; TEMP 36.4; O2SAT 96
[2024-09-26 11:48] VITALS: PULSE 80; O2SAT 92
[2024-09-26 11:49] VITALS: BP 136/76; PULSE 84; O2SAT 92
[2024-09-26 11:52] VITALS: BP 130/82
[2024-09-26] MEDS: 0.9 % SODIUM CHLORIDE 10 ML SYRINGE - SALINE FLUSH INJ (11:52)
[2024-09-26] MEDS: BUPIVACAINE HCL 0.25% PF 25 MG/10 ML VIAL INJ (11:52)
[2024-09-26] MEDS: METHYLPREDNISOLONE ACETATE 80 MG/ML VIAL INJ (11:53)
[2024-09-26] MEDS: LIDOCAINE HCL 2% 400 MG/20 ML MDV INJ (11:53)
[2024-09-26] MEDS: IOHEXOL 240 MG/ML - 10 ML VIAL INJ (11:53)
--- NOTE | 2024-09-26 11:56 | P.ON_ITS ---
Date of procedure: 09/26/24 Pre-op diagnosis: Pain due to lumbar stenosis with neurogenic claudication Post-op diagnosis: same as pre-op Procedure: procedure: Left L4-5, L5-S1 transforaminal epidural steroid injection Medications: Bupivacaine 0.25% 2cc, lidocaine 2% 1cc, depomedrol 80mg The patient was seen and examined in the preoperative holding area.? Informed consent was obtained and placed on the chart.? Patient was brought to the medical procedure unit and placed in the prone position where a timeout was completed verifying the correct patient, procedure site, position, and planned special equipment using sterile aseptic technique.? Under direct fluoroscopic visualization a 25-gauge Quincke tipped spinal needle was advanced to the designated neural foramen where contrast dye was injected to show adequate spread.? The needle was inserted at level left L4-5. There was no evidence of vascular or adverse uptake.? Epidural spread was appreciated.? The above- mentioned injectate was then placed in a 1.5 mL aliquot preceded by negative aspiration.? The needle was removed. The needle was inserted and the procedure repeated at level left L5-S1.? The surgery site was covered.? Patient was taken to the postprocedural recovery area and monitored for an appropriate length of time before found suitable for discharge in the accompaniment of a responsible adult. Anesthesia: Local Surgeon: Emma Ramos Pathology: none sent Condition: stable Disposition: no change
== END 2024-09-26 12:00 | disposition home or self-care (01) ==
LOC: SURGOUT 10:50
PROVIDERS: Visit Provider Anesthesiology
DX: M48.062 Spinal stenosis, lumbar region with neurogenic claudication (principal); M54.50 Low back pain, unspecified; E11.8 Type 2 diabetes mellitus with unspecified complications; Z79.85 Long-term (current) use of injectable non-insulin antidiabetic drugs
CPT/HCPCS: 64483; 64484; J0665; J1010; Q9966

== ENCOUNTER 2024-10-06 13:42 | Outpatient (OUT) | payer MEDICARE, MEDICAID, SELFPAY ==
--- OUTSIDE RECORDS SUMMARY | 2021-06-20 06:46 | XMS_ITS | Continuity of Care Document ---
Author Organization [facility] Address [address] [place] [address] Phone Care Team Providers Care Sizer Machine Name Role Phone Josafat Motley Unavailable Unavailable [...] Diagnoses Date Provider Providers Copied on Encounter [facility], [address], [place], [id number] , [place] tel: [phone] [facility] No Information 2 Visci DO Josafat. [address], [place], [id number] , [place]. tel: [phone] OFFICE/OUTPA TIENT VISIT, [facility], [address], [place], [id number] , [place] tel: [phone] [facility] Med Refills (chief complaint) Body mass index [BMI] 45.0-49.9, adultCOPD mixed typeEssential hypertensionLocalize d swelling, mass and lump, right lower limb 1 Pavlock DO Max. [address], [place], [id number] , [place]. tel: [phone] [facility], [address] [place] [address], [id number] , [place] tel: [phone] [facility] No Information 1 Pavlock DO Max. [address], [place], [id number] , [place]. tel: [phone] [facility], [address], [place], [id number] , [place] tel: [phone] [facility] No Information 1 Pavlock DO Max. [address], [place], [id number] , [place]. tel: [phone] [facility], [address] [place] [address], [id number] , [place] tel: [phone] [facility] No Information 1 Pavlock DO Max. [address] [place] [address], [id number] , [place]. tel: [phone] OFFICE/OUTPA TIENT VISIT, [facility], [address], [place], [id number] , [place] tel: [phone] [facility] Medication (chief complaint)N europathy (chief complaint) NeuropathyBody mass index [BMI]40.0-44.9, adult Oct- 1 [facility]. [address], [place], [id number] , [place]. tel: [phone] OFFICE/OUTPA TIENT VISIT, [facility], [address], [place], [id number] , [place] tel: [phone] [facility] check up (chief complaint) Body mass index [BMI]40.0-44.9, adultChronic low back pain, unspecified back pain laterality, unspecified whether sciatica presentLocalized swelling, mass and lump, right lower limbRash 1 [facility]. [address], [place], [id number] , [place]. tel: [phone] OFFICE/OUTPA TIENT VISIT, [facility], [address] [place] [address], [id number] , [place] tel: [phone] [facility] check up (chief complaint) Body mass index [BMI]40.0-44.9, adultPhlebitisType 2 diabetes mellitus with diabetic neuropathy, with long-term current use of insulinRash 1 [facility]. [address], [place], [id number] , [place]. tel: [phone] [facility], [address] [place] [address], [id number] , [place] tel: [phone] [facility] No Information 1 [facility] DO Li. [address] [place] [address], [id number] , [place]. tel: [phone] OFFICE/OUTPA TIENT VISIT, [facility], [address] [place] [address], [id number] , [place] tel: [phone] [facility] check up (chief complaint)d iabetes (chief complaint) Body mass index [BMI] 45.0-49.9, adultRashType 2 diabetes mellitus with diabetic neuropathy, with long-term current use of insulinWound of right lower extremity, subsequent encounter 1 [facility]. [address], [place], [id number] , [place]. tel:[phone] [facility], [address] [place] [address], [id number] , [place] tel:+ [phone] [facility] No Information 1 [facility] Max. [address] [place] [address], [id number] , [place]. tel:+ [phone] OFFICE/OUTPA TIENT VISIT, [facility], [address] [place] [address], [id number] , [place] tel:+ [phone] [facility] f/u pain/lab draw (chief complaint)R ramiro (chief complaint) Serum potassium elevatedBody mass index [BMI] 45.0-49.9, adultRash 1 [facility]. [address] [place] [address], [id number] , [place]. tel:[phone] OFFICE/OUTPA TIENT VISIT, [facility], [address] [place] [address], [id number] , [place] tel:+ [phone] [facility] med refill (chief complaint)d iabetes (chief complaint) Type 2 diabetes mellitus with diabetic neuropathy, with long-term current use of insulinNeuropathySer um potassium elevatedWound of right lower extremity, subsequent encounter 1 [facility]. [address] [place] [address], [id number] , [place]. tel:+ [phone] OFFICE/OUTPA TIENT VISIT, [facility], [address] [place] [address], [id number] , [place] tel:+ [phone] [facility] ER follow up (chief complaint) Body mass index [BMI]40.0-44.9, adultType 2 diabetes mellitus with diabetic neuropathy, with long-term current use of insulinPhlebitis 1 [facility] Max. [address] [place] [address] [place], [id number] , [place]. tel: [phone] OFFICE/OUTPA TIENT VISIT, [facility], [address] [place] [address], [id number] , [place] tel: [phone] [facility] f/u right leg (chief complaint)M usculoskele reinaldo pain (chief complaint) Essential hypertensionType 2 diabetes mellitus with diabetic neuropathy, with long-term current use of insulinMixed hyperlipidemiaLocali zed swelling, mass and lump, right lower limb 1 Pavlock DO Max. [address] [place] [address], [id number] , [place]. tel: [phone] OFFICE/OUTPA TIENT VISIT, [facility], [address] [place] [address], [id number] , [place] tel: [phone] [facility] f/u leg pain (chief complaint)M usculoskele reinaldo pain (chief complaint) Body mass index [BMI] 45.0-49.9, adultLocalized swelling, mass and lump, right lower limb 1 Pavlock DO Max. [address] [place] [address], [id number] , [place]. tel: [phone] OFFICE/OUTPA TIENT VISIT, [facility], [address] [place] [address], [id number] , [place] tel: [phone] [facility] est care (chief complaint)M usculoskele reinaldo pain (chief complaint)d iabetes (chief complaint) Posterior right knee painEssential hypertensionCOPD mixed typeMixed hyperlipidemiaInsomn ia, unspecified typeNeuropathyType 2 diabetes mellitus with diabetic neuropathy, with long-term current use of insulinLong term (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Hypothyroidis m, unspecified typeChronic low back pain, unspecified back pain laterality, unspecified whether sciatica presentOther chronic pain 1 Pavlock DO Max. [address], [place], [id number] , [place]. tel: [phone] [facility], [address], [place], [id number] , [place] tel: [phone] [facility] Dental examination 4 John DMD July. [address], [place], [id number] , [place]. tel: [phone] OFFICE/OUTPA TIENT VISIT, EST [facility], [address], [place], [id number] , [place] tel: [phone] [facility] Influenza Vaccine 3 Dialloi DO Josafat. [address], [place], [id number] , [place]. tel: [phone] Family History Family Member Type Diagnosis Age At Onset No Information Immunizations Vaccine Date Status Comments Pneumo (2 yrs or older)(PPV) administered Source: New Immunization Record Flu (split) (3 yrs or older) administered Source: New Immunization Record Payers Payer name Insurance type Covered constitution party ID Authorlopeza tiflakito(s) Medicaid [facility] [id number] Social History Type Description Quantity Date Captured Comments Alcohol Use Details Unknown Caffeine Use Details Unknown Tobacco Use Status No Information Smoking Status No Information Sex Female Sexual Orientation Straight or heterosexual Gender Identity Female Chief Complaint And Reason For Visit No Information Reason For Referral Reason For Referral No Information Plan Of Treatment Date Type Action Status Goal Dental exam. Due on 022 due Goal Hemoglobin A1C. Due on due Goal Pneumococcal vaccine due Goal Foot exam. Due on due Goal Dilated eye exam. Due on Jun due Goal Urine microalbumin. Due on due [...] eye exam. Due on Feb due Goal Urine microalbumin. Due on N due Goal Dental exam. Due on due [...] on due Goal Diabetes screening. Due on N due Goal Urinalysis. Due on due Goal [...] Urine microalbumin. Due on A due Goal Hemoglobin A1C. [...] counseling completed Goal Urine microalbumin. Due on A due Goal Pneumococcal vaccine due Goal Dental exam. Due on due Goal Foot exam. Due on due Goal Dilated eye exam. Due on Nov due Goal Hemoglobin A1C. Due on due [...] education , guidance, and counseling completed Goal Depression screening. Due on due Goal [...] Goal Influenza Vaccine. Due on due Goal Dilated eye exam. Due on Sep due Goal Urine microalbumin. Due on due Goal Dental exam. Due on due Goal Influenza Vaccine. Due on due Goal Zoster vaccine (). Due on due Goal FOBT. Due on due Goal Depression screening. Due [...] due Goal Urinalysis. Due on due Goal Lipid panel. Due on due Goal Hemoglobin A1C. Due on due Goal Urine microalbumin. Due on due Goal Pneumococcal vaccine due Goal Dental exam. Due on due Goal Foot exam. Due on due Goal Dilated eye exam. Due on August due Goal Zoster vaccine (1st). Due on due Goal FOBT. Due on [...] refill. Pt states she needs refills on [place] and Vitamin D. Pt states that she [...] Álvarez ,above was reviewed and agreed with [facility] Musculoskeletal pain It occurs c onstantly [...] she had her U/S orders performed at [facility] last Thursday. Reports are in pt's chart. Pt states that nothing is changed with her leg/pain. No worsening symptoms, nothing improved. Pt states she will need a refill on her [place] by Thursday. TAWANA Adkins f/u leg pain [...] Dominance: right. est care Pt here to [facility]. Pt c/o R LE pain and swelling [...]
--- OUTSIDE RECORDS SUMMARY | 2024-09-30 10:10 | XMS_ITS | Encounter Summary ---
Author Organization [facility] Address [address] [place] [address] Care Team Providers Care Recruitment Internship Name Role Phone Giovanni Moreno MD Primary Care Provider [phone] Reason for Visit * Reason Comments DM Foot Care DM NAIL CARE Encounter Details Date Type Department Care Team ([facility] st Contact Info) Description 09/30/2024 10:10 AM EDT Office Visit [facility] [address] [place] [address] Mack Pride, DPM [address] [address] Diabetes mellitus due to underlying condition with diabetic polyneuropathy, with long-term current use of insulin (HCC) (Primary Dx); Pain due to onychomycosis of toenails of both feet; Xerosis cutis Social History Tobacco Use Types Packs/Day Years [...] on file documented as of this encounter Last Filed Vital Signs Vital Sign Reading Time Taken Comments Blood Pressure - - Pulse - - Temperature - - Respiratory Rate 16 09/30/2024 9:57 AM EDT Oxygen Saturation - - Inhaled Oxygen Concentration - - Weight 103 kg (226 lb) 09/30/2024 9:57 AM EDT Height 162.6 cm (5' 4 ) 09/30/2024 9:57 AM EDT Body Mass Index 38.79 09/30/2024 9:57 AM EDT documented in this encounter Progress Notes * Mack Pride DPM - 09/30/2024 10:10 AM EDT Patient: Kelsea Turcios : 1960 PCP: Giovanni Moreno MD SUBJECTIVE This is a 63 y.o. female that presents today with a CC of elongated, thick nails. Pt states nails have been elongated and thick for many years and cause pain with ambulation in shoegear. Pt has tried previous treatment with minimal relief. Pt presents today for nail care and treatment. Patient is DM2 Pt has hx of xerosis to feet Allergies: Allergies Allergen Reactions Honey Anaphylaxis and Hives Codeine Itching and Rash Morphine Rash Gastrointestinal Upset Tramadol Hallucinations Past Medical History: Past Medical History: Diagnosis Date Acute hyperkalemia 01/14/2024 Acute metabolic encephalopathy 01/14/2024 PETER (acute kidney injury) 01/14/2024 Anemia Anxiety Arthritis Bipolar 1 disorder ([facility]) 01/14/2024 Bipolar disorder with depression ([facility]) 01/14/2024 Breast cancer screening by mammogram 01/14/2024 Chronic depression 01/14/2024 Chronic fatigue 01/14/2024 Chronic hypercapnic respiratory failure (HCC) 01/14/2024 Chronic kidney disease, stage 3 unspecified ([facility]) COPD (chronic obstructive pulmonary disease) ([facility]) Debility 01/14/2024 Degenerative joint disease of cervical and lumbar spine 01/14/2024 Dehydration 01/14/2024 Diabetes ([facility]) 01/14/2024 Diabetic neuropathy ([facility]) 07/15/2023 Diarrhea 01/14/2024 Difficulty walking Disorder of sacroiliac joint 01/14/2024 DM type 2 (diabetes mellitus, type 2) ([facility]) Elevated troponin 01/14/2024 Epigastric pain 01/14/2024 Gait instability 01/14/2024 GERD (gastroesophageal reflux disease) Hallucinations, visual 01/14/2024 Hemosiderin pigmentation of skin 01/14/2024 Hypertension Hypomagnesemia 01/14/2024 Hypothyroidism 01/14/2024 Iron deficiency anemia 01/14/2024 Irritable bowel disease 01/14/2024 Kidney disease 01/14/2024 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[facility]) 01/14/2024 Lumbar degenerative disc disease 01/14/2024 Lumbar spondylolysis Lumbosacral spondylosis without myelopathy 01/14/2024 Major depressive disorder with psychotic features ([facility]) 01/14/2024 Mixed hyperlipidemia Monoclonal gammopathy 01/14/2024 Morbid obesity with BMI of 40.0-44.9, adult ([facility]) Morbid obesity with BMI of 45.0-49.9, adult ([facility]) 01/14/2024 Multiple falls 01/14/2024 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) ([facility]) 01/14/2024 OM (onychomycosis) On home oxygen therapy 01/14/2024 TANYA (obstructive sleep apnea) Osteoarthritis of back Other chronic pain 01/14/2024 Peripheral edema 01/14/2024 Pruritic erythematous rash 01/14/2024 Rhabdomyolysis 01/14/2024 Stage 3 chronic kidney disease ([facility]) 01/14/2024 Symptomatic varicose veins of both lower extremities 01/14/2024 Thyroid disease 01/14/2024 Type 2 diabetes mellitus without complications ([facility]) 01/14/2024 Ulcer of left lower leg ([facility]) 01/14/2024 UTI (urinary tract infection) 01/14/2024 Venous reflux 01/14/2024 Venous stasis ulcer limited to breakdown of skin without varicose veins ([facility]) 01/14/2024 Vitamin D deficiency, unspecified Medications: Current Outpatient Medications: albuterol HFA 90 mcg/act inhaler, INHALE 2 PUFFS IN THE MORNING AND 2 PUFFS IN THE EVENING AND 2 PUFFS BEFORE BEDTIME., Disp: 18 g, Rfl: 5 amLODIPine (Norvasc) 10 MG tablet, Take 10 mg by mouth Daily, Disp: , Rfl: aspirin 81 MG EC tablet, , Disp: , Rfl: BD Pen Needle Micro U/F 32G X 6 MM misc, , Disp: , Rfl: budesonide-formoterol (Symbicort) 160-4.5 MCG/ACT inhaler, Inhale 2 puffs in the morning and 2 puffs before bedtime. Rinse mouth with water after use to reduce aftertaste and incidence of candidiasis. Do not swallow.., Disp: 1 each, Rfl: 5 busPIRone (Buspar) 5 MG tablet, TAKE 1 TABLET BY ORAL ROUTE 1 TIMES PER DAY IN THE AFTERNOON, Disp:, Rfl: Cholecalciferol (Vitamin D) 50 MCG (1999 UT) capsule, Take 1 capsule by mouth 1 (one) time each dayat the same time, Disp: , Rfl: clobetasol (Temovate) 0.05 % cream, , Disp: , Rfl: cloNIDine (Catapres) 0.1 MG tablet, , Disp: , Rfl: colestipol (Colestid) 1 g tablet, Take 2 g by mouth 1 (one) time each day at the same time, Disp: ,Rfl: Continuous Blood Gluc Sensor (FreeStyle Alfredo 2 Sensor) misc, , Disp: , Rfl: Continuous Glucose [employer] Counselor (FreeStyle Alfredo 3 [place]) device, USE DIRECTED, Disp: 1 each, Rfl: 0 Continuous Glucose Sensor (FreeStyle Alfredo 3 Plus Sensor) misc, 1 Bar Every 15 Days, Disp: 6 each, Rfl: 1 Coreg 25 MG tablet, Take 25 mg by mouth every 12 (twelve) hours, Disp: , Rfl: dapagliflozin (Farxiga) 10 MG, Take 1 tablet (10 mg) by mouth Daily, Disp: 90 tablet, Rfl: 1 diclofenac sodium 1 % gel, APPLY 4 GRAMS TO AFFECTED AREA 4 TIMES DAILY, Disp: 100 g, Rfl: 3 dicyclomine (Bentyl) 20 MG tablet, Take 20 mg by mouth as needed in the morning and 20 mg as neededat noon and 20 mg as needed in the evening., Disp: , Rfl: DULoxetine (Cymbalta) [address] capsule, Take 60 mg by mouth Daily, Disp: , Rfl: Fetzima 120 MG extended release capsule, , Disp: , Rfl: fluticasone (Flonase) 50 MCG/ACT nasal spray, USE 1 SPRAY INTO EACH NOSTRIL EVERY DAY FOR 30 DAYS, Disp: 16 mL, Rfl: 0 furosemide (Lasix) 40 MG tablet, , Disp: , Rfl: gabapentin (Neurontin) 600 MG tablet, , Disp: , Rfl: HYDROcodone-acetaminophen (Peytona) 5-325 MG tablet, , Disp: , Rfl: hydrOXYzine HCl (Atarax) 10 MG tablet, , Disp: , Rfl: hydrOXYzine HCl (Atarax) 25 MG tablet, Take 25 mg by mouth 3 (three) times a day as needed for anxiety, Disp: , Rfl: insulin aspart (NovoLOG FLEXPEN) 100 UNIT/ML pen, Inject 40 Units under the skin in the morning and40 Units at noon and 40 Units in the evening. Inject before meals., Disp: 120 mL, Rfl: 1 insulin glargine (Lantus SoloStar) 100 UNIT/ML pen, Inject 50 Units under the skin in the morning.,Disp: 45 mL, Rfl: 1 insulin lispro-aabc (Lyumjev KwikPen) 100 UNIT/ML pen, Inject 40 Units under the skin in the morning and 40 Units at noon and 40 Units in the evening. Inject with meals., Disp: 36 pen , Rfl: 1 ipratropium-albuterol (Duo-Neb) 0.5-2.5 mg/3 mL nebulizer solution, Take 3 mL by nebulization 4 (four) times a day as needed for wheezing or shortness of breath, Disp: 360 mL, Rfl: 11 levothyroxine (Synthroid, Levoxyl) 75 MCG tablet, , Disp: , Rfl: loperamide (Imodium A-D) 2 MG tablet, 1 tablet, Disp: , Rfl: mirtazapine (Remeron) 45 MG tablet, , Disp: , Rfl: montelukast (Singulair) 10 MG tablet, Take 1 tablet (10 mg) by mouth 1 (one) time each day at the same time, Disp: 30 tablet, Rfl: 5 olopatadine (Patanol) 0.1 % ophthalmic solution, , Disp: , Rfl: omeprazole (PriLOSEC) [address] capsule, 1 (one) time each day at the same time, Disp: , Rfl: oxybutynin XL (Ditropan XL) 10 MG 24 hr tablet, 1 (one) time each day at the same time, Disp: , Rfl: Ozempic, 0.25 or 0.5 MG/DOSE, 2 MG/3ML solution pen-injector, , Disp: , Rfl: prednisoLONE acetate (Pred-Forte) 1 % ophthalmic suspension, , Disp: , Rfl: Refresh Tears 0.5 % ophthalmic solution, , Disp: , Rfl: Rexulti 4 MG tablet, Take 1 tablet by mouth Daily, Disp: , Rfl: semaglutide (Ozempic, 0.25 or 0.5 MG/DOSE,) 2 MG/1.5ML solution pen-injector, Inject 0.5 mg under the skin 1 (one) time per week, Disp: 4.5 mL, Rfl: 1 sucralfate (Carafate) 1 g tablet, every 12 (twelve) hours, Disp: , Rfl: theophylline ER (Nishant-24) 200 MG 24 hr capsule, Take 1 capsule (200 mg) by mouth 1 (one) time each day at the same time, Disp: 30 capsule, Rfl: 5 tiZANidine (Zanaflex) 4 MG tablet, Take 4 mg by mouth in the evening, Disp: , Rfl: zonisamide (Zonegran) 25 MG capsule, , Disp: , Rfl: Social History: Social History Socioeconomic History Marital status: Spouse name: Not on file Number of children: Not on file Years of education: Not on file Highest education level: Not on file Occupational History Not on file Tobacco Use Smoking status: Never Passive exposure: Never Smokeless tobacco: Never Vaping Use Vaping status: Unknown Substance and Sexual Activity Alcohol use: Never Comment: Caffeine intake: 2-3 cups per day Drug use: Never Sexual activity: Defer Partners: Decline to Answer Other Topics Concern Not on file Social History Narrative Not on file Social Drivers of Health Financial Resource Strain: Not on file Food Insecurity: Not on file Transportation Needs: Not on file Physical Activity: Not on file Stress: Not on file Social Connections: Not on file Intimate Partner Violence: Not on file Housing Stability: Not on file ROS: General: denies fever, chills, fatigue, malaise OBJECTIVE LE EXAM: DERM: Elongated thick yellow crumbly nails digits 1 through 10. Negative hair growth with thin shiny atrophic skin bilaterally. Rubor noted to the right 2nd digit PIPJ region. Negative Dry and scaly skin noted to bilateral feet VASC: Negative DP and negative PT pedal pulses NEURO: 5.07 Glenn Rosi monofilament test diminished to digits and forefoot bilaterally 125Hz tuning fork diminished to 1st MPJ bilaterally ORTHO: Positive pain on palpation to toenails of the left 1,2,3,4,5 toes and right 1,2,3,4,5 toes Flexion deformity 2 through 5 digits right foot ASSESSMENT 1. Diabetes mellitus due to underlying condition with diabetic polyneuropathy, with long-term current use of insulin (HCC) 2. Pain due to onychomycosis of toenails of both feet 3. Xerosis cutis PLAN Discussed proper foot care with patient today. Debride nails in length and thickness digits 1 through 10 Patient educated today on proper diabetic foot care including monitoring feet daily for any signs of infection openings in the skin or irregularities to both feet. Patient had a diabetic neurologicalexam today to both their feet and discussed proper shoe gear. Patient education on condition and treatment of condition. Pt encouraged to continue with hydrating creams to feet with offer for medication and/or prescription refill. Mack Pride DPM documented in this encounter Plan of Treatment Upcoming Encounters Date Type Department Care Team (Late st Contact Info) Description 11/21/2024 11:30 AM EDT Office Visit [facility] [address] [place] [address] Jeannie Aguilar MD [address] [place] [address] 12/09/2024 10:30 AM EDT Office Visit [facility] [address] [place] [address] Mack Pride DPM [address] [address] 03/07/2025 2:00 PM EST Office Visit [facility] [address] [place] [phone] Svetlana Garcia DO [address] [place] [address] documented as of this encounter Visit Diagnoses Diagnosis Diabetes mellitus due to underlying condition with diabetic polyneuropathy, with long-term current use of insulin (HCC)- Primary Pain due to onychomycosis of toenails of both feet Xerosis cutis Other specified disease of sebaceous glands documented in this encounter Care Teams Recruitment Internship Relationship Specialty Start Date End Date Giovanni Moreno MD [address] [place] [address] PCP - General Family Medicine 09/18/22 documented as of this encounter
--- OUTSIDE RECORDS SUMMARY | 2024-10-06 13:45 | XMS_ITS | Clinical Summary ---
Author Organization [facility] Address [address] [place] [address] Phone Care Team Providers Care Real Estate Agency Licensee Name Role Phone Unavailable Primary Care Provider [...]
--- OUTSIDE RECORDS SUMMARY | 2024-10-06 13:45 | XMS_ITS | Encounter Summary ---
Author Organization [facility] Address [address] [place] [address] Care Team Providers Care Fleet Sales Manager Name Role Phone Giovanni Moreno MD Primary Care Provider [phone] Encounter Details Date Type Department Care Team (Late Contact Info) Description 09/30/2024 Bamboo flowsheet [facility] [address] [place] [address] Mack Pride DPM [address] [place] [id number] Social History Tobacco Use Types Packs/Day Years [...] Visit [facility] [address] [place] [address] Jeannie Aguilar MD [address] [place] [address] 12/09/2024 10:30 AM EDT Office Visit [facility] [address] [place] [address] Mack Pride DPM [address] [place] [address] [place] [address] 03/07/2025 2:00 PM EST Office Visit [facility] [address] [place] [phone] Svetlana Garcia DO [address] [facility] [place] [address] documented as of this encounter Visit Diagnoses Not on filedocumented in this encounter Care Teams Fleet Sales Manager Relationship Specialty Start Date End Date Giovanni Moreno MD [address] [place] [address] PCP - General Family Medicine 09/18/22 documented as of this encounter
--- OUTSIDE RECORDS SUMMARY | 2024-10-06 13:45 | XMS_ITS | Encounter Summary ---
Author Organization [facility] Address [address] [place] [address] Care Team Providers Care Mixer Whipped Topping Name Role Phone Giovanni Moreno MD Primary Care Provider [phone] Encounter Details Date Type Department Care Team (Late Contact Info) Description 10/05/2024 External Result Encounter [facility] External Department Unsolicited Roxane Bills MD [address] [place] [address] Social History Tobacco Use Types [...] Visit [facility] [address] [place] [address] Jeannie Aguilar MD [address] [place] [address] 12/09/2024 10:30 AM EDT Office Visit [facility] [address] [place] [address] Mack Pride DPM [address] [address] 03/07/2025 2:00 PM EST Office Visit [facility] [address] [place] [address] Svetlana Garcia, DO [address] [address] documented as of this encounter Procedures Procedure Name Priority Date/Time Associated Diagnosis Comments PET/CT SKULL BASE TO MID THIGH 10/05/2024 3:42 PM EDT documented in this encounter Results * PET/CT skull base to mid thigh (10/05/2024 3:42 PM EDT) Anatomical Region Laterality Modality Body Computed Tomogra phy 10/05/2024 3:42 PM EDT Impressions 10/05/2024 3:59 PM EDT Diffuse abnormal bony involvement as described above consistent with the history of multiple myeloma. Impression dictated by: Harvey Barry M.D. 10/05/2024 3:56 PM Dictation Location: [place] [address] Transcribed By: [facility] 10/05/24 1556 Dictated By: Harvey Barry II, MD 10/05/24 1542 Signed By: <Electronically signed by Harvey Barry II, MD in OV> 10/05/24 1556 Narrative 10/05/2024 3:59 PM EDT [facility] Main [address] [address] Nuclear Medicine Report Signed Patient: Kelsea Turcios MR#: [id number] 58 : 1960 Acct:[id number] Age/Sex: 63 / F ADM Date: 10/05/24 Loc: XT Room: [facility] Attending Dr: Roxane Bills MD Copies to: MD Harvey Manzo II, MD Ordering Provider: Roxane Bills MD Date of Service: 10/05/24 PET/PET NaF bone init (nopr): G63 - Polyneuropathy in diseases classified elsewhere PET NaF bone init (nopr) 10/05/2024 10:57 AM SIGNS AND SYMPTOMS: Multiple myeloma PROTOCOL: PET images were obtained of the whole body after intravenous radiotracer administration. Low-dose CT was obtained. After attenuation correction of PET images, fused PET CT images were generated and reconstructed in axial, sagittal, and coronal planes. COMPARISON: None. RADIOPHARMACEUTICAL: 12.0 mCi of intravenous fluorine 18 sodium fluoride FINDINGS: There is abnormal radiotracer relation throughout the calvarium, skull base, mandible, clavicles, axial skeleton, within the shoulders, within the sternum, within the ribs throughout the pelvis, with the proximal femurs, bilateral patellas, within the right third and carpal, within the distal femurs, the ankles, and feet. This is consistent with the history of multiple myeloma. There is physiologic radiotracer accumulation within the kidneys, bladder, and bowel. PET/PET NaF bone init (nopr) Procedure Note Harvey Barry MD - 10/05/2024 [facility] Main [place] [address] [place] [address] Nuclear Medicine Report Signed Patient: Kelsea Turcios MMR#: [id number] 58 : 9Acct:[id number] Age/Sex: 63 / FADM Date: 10/05/24 Loc: Room:Type: [facility] Attending Dr: Roxane Bills MD Copies to: MD Harvey Manzo II, MD Ordering Provider: Roxane Bills MD Date of Service: 10/05/24 PET/PET NaF bone init (nopr): G63 -Polyneuropathy in diseases classified elsewhere PET NaF bone init (nopr) 10/05/2024 10:57 AM SIGNS AND SYMPTOMS: Multiple myeloma PROTOCOL: PET images were obtained of the whole body after intravenousradiotracer administration. Low-dose CT was obtained. After attenuation correction of PET images,fused PET CT images were generated and reconstructed in axial, sagittal, and coronal planes. COMPARISON: None. RADIOPHARMACEUTICAL: 12.0 mCi of intravenous fluorine 18 sodium fluoride FINDINGS: There is abnormal radiotracer relation throughout the calvarium, skullbase, mandible, clavicles, axial skeleton, within the shoulders, within the sternum, within the ribsthroughout the pelvis, with the proximal femurs, bilateral patellas, within the right third andcarpal, within the distal femurs, the ankles, and feet. This is consistent with the history ofmultiple myeloma. There is physiologic radiotracer accumulation within the kidneys, bladder,and bowel. PET/PET NaF bone init (nopr) IMPRESSION: Diffuse abnormal bony involvement as described above consistent with thehistory of multiple myeloma. Impression dictated by: Harvey Barry M.D. 10/05/2024 3:56 PM Dictation Location: [place] [address] Transcribed By: [facility] 10/05/24 1556 Dictated By: Harvey Barry II, MD 10/05/24 1542 Signed By: <Electronically signed by Harvey Barry II, MD inO> 10/05/24 1556 Roxane Bills MD IMG CT PROCEDURES Final Result documented in this encounter Visit Diagnoses Not on filedocumented in this encounter Care Teams Mixer Whipped Topping Relationship Specialty Start Date End Date Giovanni Moreno MD [address] [place] [address] PCP - General Family Medicine 09/18/22 documented as of this encounter
--- OUTSIDE RECORDS SUMMARY | 2024-10-06 13:45 | XMS_ITS | Clinical Summary ---
Author Organization [facility] tem Address [id number] [address] [place] [address] Care Team Providers Care Banana Expert Name Role Phone Svetlana Garcia DO Primary Care Provider [phone] Social History Tobacco Use Types Packs/Day Years [...] 12/12/2024 Medical Devices Not on file Insurance [facility] MEDICAID Care Teams Banana Expert Relationship Specialty Start Date End Date Svetlana Garcia DO PCP - General Internal Medicine 09/21/20
--- OUTSIDE RECORDS SUMMARY | 2024-10-06 13:45 | XMS_ITS | Encounter Summary ---
Author Organization [facility] Address [address] [place] [address] Care Team Providers Care Lacer And Tier Name Role Phone Giovanni Moreno MD Primary Care Provider [phone] Encounter Details Date Type Department Care Team (Late Contact Info) Description 02/06/2023 External Result Encounter [facility] External Department Unsolicited Roxane Bills MD [address] [place] [address] Social History Tobacco Use Types [...] Visit [facility] [address] [place] [address] Jeannie Aguilar MD [address] [place] [address] 12/09/2024 10:30 AM EDT Office Visit [facility] [address] [place] [address] Mack Pride DPM [address] [address] 03/07/2025 2:00 PM EST Office Visit [facility] [address] [place] [address] Radha, Svetlana Alexys, DO [address] [place] [address] documented as of this encounter Procedures Procedure [...] Domenico Brown M.D.02/06/2023 4:08 PM Dictation Location: [place] [address] Transcribed By: [facility] 02/06/23 1608 Dictated By: Domenico Brown DO 02/06/23 1606 Signed By: <Electronically signed by Domenico Brown DO in OV> 02/06/23 1608 Narrative 02/24/2023 12:16 PM EST [facility] Main [address] [address] XRay Report Signed Patient: Kelsea Turcios MR#: [id number] 58 : 1960 Acct:[id number] Age/Sex: 62 / F ADM Date: 02/06/23 Loc: XT [facility]: [facility] Attending Dr: Roxane Bills MD [...] survey Procedure Note Radiology, Radiologist, - 02/24/2023 [facility] Main [place] [address] [place] [address] XRay Report Signed Patient: Kelsea Turcios MMR#: [id number] 58 : 9Acct:[id number] Age/Sex: 62 / FADM Date: 02/06/23 Loc: Room:Type: [facility] RCR Attending Dr: Roxane Bills MD [...] Domenico Brown M.D.02/06/2023 4:08 PM Dictation Location: [place] [address] Transcribed By: [facility] 02/06/23 1608 Dictated By: Domenico Brown DO 02/06/23 1606 Signed By: <Electronically signed by Domenico Brown DO in OV> 02/06/23 1608 us Roxane Bills MD IMG XR PROCEDURES Final Result documented in this encounter Visit Diagnoses Not on filedocumented in this encounter Care Teams Lacer And Tier Relationship Specialty Start Date End Date Giovanni Moreno MD [address] [place] [address] PCP - General Family Medicine 09/18/22 documented as of this encounter
--- OUTSIDE RECORDS SUMMARY | 2024-10-06 13:45 | XMS_ITS | Encounter Summary ---
Author Organization [facility] Address [address] [place] [address] Care Team Providers Care Park Interpreter Name Role Phone Giovanni Moreno MD Primary Care Provider [phone] Encounter Details Date Type Department Care Team (Late Contact Info) Description 02/02/2024 External Result Encounter [facility] External Department Unsolicited Roxane Bills MD [address] [place] [address] Social History Tobacco Use Types [...] Visit [facility] [address] [place] [phone] Jeannie Aguilar MD [address] [place] [address] 12/09/2024 10:30 AM EDT Office Visit [facility] [address] [place] [address] Mack Pride DPM [address] [address] 03/07/2025 2:00 PM EST Office Visit [facility] [address] [place] [address] Radha Svetlana Alexys, DO [address] [place] [address] documented as of this encounter Procedures Procedure [...] Domenico Brown M.D.02/02/2024 1:46 PM Dictation Location: [place] [address] Transcribed By: [facility] 02/02/24 1346 Dictated By: Domenico Brown DO 02/02/24 1344 Signed By: <Electronically signed by Domenico Brown DO in OV> 02/02/24 1346 Narrative 02/02/2024 1:49 PM EDT [facility] Main [address] [address] XRay Report Signed Patient: Kelsea Turcios MR#: [id number] 58 : 1960 Acct:[id number] Age/Sex: 63 / F ADM Date: 02/02/24 Loc: XT Room: Type: [facility] RCR Attending Dr: Roxane Bills MD [...] Procedure Note Radiology, Radiologist, MD - 02/02/2024 [facility] Main [place] [address] [place] [address] XRay Report Signed Patient: Kelsea Turcios MMR#: [id number] 58 : 9Acct:[id number] Age/Sex: 63 / FADM Date: 02/02/24 Loc: Room:Type: [facility] Attending Dr: Roxane Bills [...] Domenico Brown M.D.02/02/2024 1:46 PM Dictation Location: [place] [address] Transcribed By: [facility] 02/02/24 1346 Dictated By: Domenico Brown DO 02/02/24 1344 Signed By: <Electronically signed by Domenico Brown DO in OV> 02/02/24 1346 us Roxane Bills MD IMG XR PROCEDURES Final Result documented in this encounter Visit Diagnoses Not on filedocumented in this encounter Care Teams Park Interpreter Relationship Specialty Start Date End Date Giovanni Moreno MD [address] [place] [address] PCP - General Family Medicine 09/18/22 documented as of this encounter
--- OUTSIDE RECORDS SUMMARY | 2024-10-06 13:45 | XMS_ITS | Encounter Summary ---
Author Organization [facility] Address [address] [place] [address] Phone Care Team Providers Care Sheet Metal Engineer Name Role Phone Unavailable Primary Care Provider Unavailabl e Encounter Details Date Type Department Care Team (Late st Contact Info) Description 12/25/2021 Orders Only [facility] [address] [place] [address] Conversion, Onbase Social History Tobacco Use Types [...]
--- OUTSIDE RECORDS SUMMARY | 2024-10-06 13:45 | XMS_ITS | Encounter Summary ---
Author Organization [facility] Address [address] [place] [address] Care Team Providers Care Dry Room Operator Name Role Phone Giovanni Moreno MD Primary Care Provider [phone] Encounter Details Date Type Department Care Team (Late Contact Info) Description 10/05/2024 External Result Encounter [facility] External Department Unsolicited Roxane Bills MD [address] [place] [address] Social History Tobacco Use Types [...] Visit [facility] [address] [place] [phone] Jeannie Aguilar MD [address] [place] [address] 12/09/2024 10:30 AM EDT Office Visit [facility] [address] [place] [address] Mack Pride DPM [address] [place] [address] 03/07/2025 2:00 PM EST Office Visit [facility] [address] [place] [address] Svetlana Garcia, DO [address] [place] [address] documented as of this encounter Procedures Procedure Name Priority Date/Time Associated Diagnosis Comments URIC ACID Routine 10/05/2024 10:06 AM EDT COMPREHENSIVE METABOLIC PANEL Routine 10/05/2024 10:06 AM EDT documented in this encounter Results * (ABNORMAL) Uric acid (10/05/2024 10:06 AM EDT) URIC ACID 6.7(H) 2.3 - 6.6 mg/dL 10/05/2024 11:56 AM EDT [facility] Other Topography unknown / Unknown 10/05/2024 10:06 AM EDT 10/05/2024 10:15 AM EDT Roxane Bills MD LAB BLOOD ORDERABLES Final Resul t [facility], [facility] [address] [place] [address], [facility] [address] [place] [address] * (ABNORMAL) Comprehensive metabolic panel (10/05/2024 10:06 AM EDT) Glucose 292(H) 70 - 100 mg/dL 10/05/2024 11:56 AM EDT [facility] Comment: Random Glucose Reference Range is dependent on time and content of last meal. Glucose of more than 200 mg/dL in a nonstressed, ambulatory subject supports the diagnosis of Diabetes Mellitus. ADA recommended reference range BUN 33(H) 7 - 25 mg/dL 10/05/2024 11:56 AM EDT [facility] CREATININE 1.33(H) 0.60 - 1.20 mg/dL 10/05/2024 11:56 AM EDT [facility] ESTIMATED GFR 44.401 10/05/2024 11:56 AM EDT [facility] Sodium 140 136 - 145 mmol/L 10/05[facility]2024 [facility] Potassium, Bld 4.2 3.5 - 5.1 mmol/L 10/05/2024 11:56 AM EDT [facility] Chloride 98 98 - 107 mmol/L 10/05/2024 11:56 AM EDT [facility] Carbon Dioxide 33.6(H) 21.0 - 31.0 mmol/L 10/05/2024 11:56 AM EDT [facility] Anion Gap 12.6 6.0 - 15.0 10/05/2024 11:[facility] Calcium 9.0 8.6 - 10.3 mg/dL 10/05/2024 11:56 AM EDT [facility] TOTAL PROTEIN 7.7 6.4 - 8.9 g/dL 10/05/2024 11:56 AM EDT [facility] ALBUMIN LEVEL 4.1 3.5 - 5.7 g/dL 10/05/2024 11:[facility] GLOBULIN 3.6 g/dL 10/05/2024 11:56 AM [facility] ALBUMIN/GLOBULIN RATIO 1.1 10/05/2024 11:56 AM [facility] BILIRUBIN,TOTAL 0.3 0.3 - 1.0 mg/dL 10/05/2024 11:56 AM EDT [facility] ASPARTATE AMINO TRANSFERASE 23 13 - 39 U/L 10/05/2024 11:56 AM EDT [facility] ALANINE AMINOTRANSFERASE 42 7 - 52 U/L 10/05/2024 11:56 [facility] ALKALINE PHOSPHATASE 149(H) 34 - 104 U/L 10/05/2024 11:56 AM [facility] CREATININE CLR [facility]C PHARMACY 46.51 10/05/2024 11:56 AM [facility] Other Topography unknown / Unknown 10/05/2024 10:06 AM EDT 10/05/2024 10:15 AM EDT us Roxane Bills MD LAB BLOOD ORDERABLES Final Resul t [facility] [address] [place] [address], [facility] [address] [place] [address] documented in this encounter Visit Diagnoses Not on filedocumented in this encounter Care Teams Dry Room Operator Relationship Specialty Start Date End Date Giovanni Moreno MD [address] [place] [address] PCP - General Family Medicine 09/18/22 documented as of this encounter
--- OUTSIDE RECORDS SUMMARY | 2024-10-06 13:45 | XMS_ITS | Clinical Summary ---
Author Organization [facility] Healthcare Address [address] [place] [address] Care Team Providers Care Php Mysql Developer Name Role Phone Giovanni Moreno MD Primary Care Provider Allergies Active Allergy Reactions Criticality Noted Date [...] nasal sprayIndications :Chronic obstructive pulmonary disease, unspecified ([facility]) USE 1 SPRAY INTO EACH NOSTRIL EVERY DAY FOR 30 DAYS 16 mL 023 Active HYDROcodone-acet aminophen ([place]) 5-325 MG tablet 023 Active hydrOXYzine HCl (Atarax) 10 MG tablet 023 Active prednisoLONE acetate (Pred-Forte) 1 % ophthalmic suspension 023 Active tiZANidine (Zanaflex) 4 MG tablet Take 4 mg by mouth in the evening Active Refresh Tears 0.5 % ophthalmic solution 023 Active Continuous Blood Gluc Sensor (FreeStyle Alfredo 2 Sensor) [facility] 024 Active BD Pen Needle Micro U/F 32G X [facility] Active Fetzima 120 MG extended release capsule 024 Active mirtazapine (Remeron) 45 MG tablet 024 Active olopatadine (Patanol) 0.1 % ophthalmic solution 024 Active furosemide (Lasix) 40 MG tablet 024 Active diclofenac sodium 1 % gelIndications:D iabetes mellitus due to underlying condition with diabetic polyneuropathy, with long-term current use of insulin ([facility]) APPLY 4 GRAMS TO AFFECTED AREA [...] ns:Chronic obstructive pulmonary disease, unspecified COPD type ([facility]) Inhale 2 puffs in the morning and [...] hyperglycemia, with long-term current use of insulin ([facility]) Inject 40 Units under the skin in [...] hyperglycemia, with long-term current use of insulin ([facility]) Inject 50 Units under the skin in the morning. 45 mL 1 025 2024 Active insulin aspart (NovoLOG FLEXPEN) 100 UNIT/ML penIndications:T ype 2 diabetes mellitus with hyperglycemia, with long-term current use of insulin ([facility]) Inject 40 Units under the skin in [...] hyperglycemia, with long-term current use of insulin ([facility]) 1 Bar Every 15 Days 6 each 1 025 2024 Active semaglutide (Ozempic, 0.25 or 0.5 MG/DOSE,) 2 MG/1.5ML solution pen-injectorIndi cations:Type 2 diabetes mellitus with hyperglycemia, with long-term current use of insulin ([facility]) Inject 0.5 mg under the skin 1 [...] 2 MG/3ML solution pen-injector Active Continuous Glucose Chipper Operator (FreeStyle Alfredo 3 [place]) deviceIndication s:Type 2 diabetes mellitus with hyperglycemia, with long-term current use of insulin ([facility]) USE DIRECTED 1 each Active Continuous Glucose Chipper Operator (FreeStyle Alfredo 3 [place]) deviceIndication s:Type 2 diabetes mellitus with hyperglycemia, with long-term current use of insulin ([facility]) 1 Device Daily 1 each 025 2024 [...] bowel disease 01/14/202406/2023 Kidney disease 01/14/2024 01/14/2024 [facility] (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 01/14/2024 01/14/2024 Lumbar [...] Encounters Date Type Department Care Team Description 10/05/2024 External Result Encounter [facility] External Department Unsolicited Roxane Bills MD 10/05/2024 External Result Encounter [facility]S External Department Unsolicited Roxane Bills MD 09/30/2024 10:10 AM EDT Office Visit [facility]OD [address] [place] [address] Mack Pride DPM Diabetes mellitus due to underlying condition with diabetic polyneuropathy, with long-term current use of insulin (HCC) (Primary Dx); Pain due to onychomycosis of toenails of both feet; Xerosis cutis 09/30/2024 Bamboo flowsheet [facility] [address] [place] [address] Mack Pride DPM 09/19/2024 External Result Encounter [facility] External Department Unsolicited Roxane Bills MD 09/19/2024 External Result Encounter [facility] External Department Unsolicited Roxane Bills MD 09/19/2024 External Result Encounter [facility] External Department Unsolicited Roxane Bills MD 09/19/2024 External Result Encounter [facility] External Department Unsolicited Roxane Bills MD 09/19/2024 External Result Encounter [facility] External Department Unsolicited Roxane Bills MD 09/09/2024 Refill [facility] [address] [place] [address] Jeannie Aguilar MD Type 2 diabetes mellitus with hyperglycemia, with long-term current use of insulin (HCC) 08/25/2024 1:30 PM EDT Office Visit [facility] P[facility]M [address] [place] [address] Svetlana Garcia DO Chronic obstructive pulmonary disease, unspecified COPD type (HCC) (Primary Dx); Obstructive sleep apnea syndrome 08/25/2024 Bamboo flowsheet [facility] [address] [place] [address] Svetlana Garcia DO 08/25/2024 Travel 08/23/2024 External Result Encounter [facility] External Department Unsolicited Roxane Bills MD 08/23/2024 External Result Encounter [facility] External Department Unsolicited Roxane Bills MD 08/23/2024 External Result Encounter [facility] External Department Unsolicited Roxane Bills MD 08/22/2024 11:30 AM EDT Office Visit [facility] [address] [place] [address] Jeannie Aguilar MD Type 2 diabetes mellitus with hyperglycemia, with long-term current use of insulin (HCC) (Primary Dx); Vitamin D deficiency; Primary hypertension ; Hyperlipemia, mixed ; Insulin long-term use (HCC); Encounter for dietary consultation; Stage 3b chronic kidney disease ([facility]); Class 3 severe obesity due to excess calories with serious comorbidity and body mass index (BMI) of 45.0 to 49.9 in adult ([facility]-HCC); Type 2 diabetes mellitus with hyperglycemia (HCC) 08/22/2024 Bamboo flowsheet [facility] [address] [place] [address] Jeannie Aguilar MD 08/17/2024 Refill [facility] [address] [place] [phone] Isela Trammell LPN Type 2 diabetes mellitus with hyperglycemia, with long-term current use of insulin (HCC) 07/30/2024 Refill [facility] [address] [place] [phone] Svetlana Garcia, Chronic obstructive pulmonary disease, unspecified COPD type (HCC) from Last 3 Months Immunizations Immunization Administration [...] EDT Temperature - - Respiratory Rate 16 09/30/2024 9:57 AM EDT Oxygen Saturation 98% 08/25/2024 1:25 PM EDT Inhaled Oxygen Concentration - - Weight 103 kg (226 lb) 09/30/2024 9:57 AM EDT Height 162.6 cm (5' 4 ) 09/30/2024 9:57 AM EDT Body Mass Index 38.79 09/30/2024 9:57 AM EDT Plan of Treatment Upcoming Encounters Date Type Department Care Team (Late st Contact Info) Description 11/21/2024 11:30 AM EDT Office Visit [facility] [address] [place] [phone] Jeannie Aguilar MD [address] [place] [address] 12/09/2024 10:30 AM EDT Office Visit [facility] [address] [place] [phone] Mack Pride DPM [address] [facility] [address] [place] [address] 03/07/2025 2:00 PM EST Office Visit [facility] P[facility]M [address] [facility] [place] [phone] Svetlana Garcia DO [address] [place] [address] Health Maintenance Due Date Last Done Comments [...] TO MID THIGH 10/05/2024 3:42 PM EDT URIC ACID Routine 10/05/2024 10:06 AM EDT COMPREHENSIVE METABOLIC PANEL Routine 10/05/2024 10:06 AM EDT BIOPSY BONE MARROW 09/19/2024 11 :37 AM [...] (HCC) from Last 3 Months Results * PET/CT skull base to mid thigh (10/05/2024 3:42 PM EDT) Anatomical Region Laterality Modality Body Computed Tomogra phy 10/05/2024 3:42 PM EDT Impressions 10/05/2024 3:59 PM EDT Diffuse abnormal bony involvement as described above consistent with the history of multiple myeloma. Impression dictated by: Harvey Barry M.D. 10/05/2024 3:56 PM Dictation Location: [place] [address] Transcribed By: [facility] 10/05/24 1556 Dictated By: Harvey Barry II, MD 10/05/24 1542 Signed By: <Electronically signed by Harvey Barry II, MD in OV> 10/05/24 1556 Narrative 10/05/2024 3:59 PM EDT [facility] [place] [address] Nuclear Medicine Report Signed Patient: Kelsea Turcios MR#: [id number] 58 : 1960 Acct:[id number] Age/Sex: 63 / F ADM Date: 10/05/24 Loc: XT Room: Type: REG RCR Attending Dr: Roxane Bills MD Copies [...] Procedure Note Harvey Barry MD - 10/05/2024 [facility] [place] [address] Nuclear Medicine Report Signed Patient: Kelsea Turcios MMR#: [id number] 58 : 1960cct:[id number] Age/Sex: 63 / FADM Date: 10/05/24 Loc: XT Room:Type: [facility] RCR Attending Dr: Roxane Bills MD Copies [...] Barry M.D. 10/05/2024 3:56 PM Dictation Location: [place] [address] Transcribed By: [facility] 10/05/24 1556 Dictated By: Harvey Barry II, MD 10/05/24 1542 Signed By: <Electronically signed by Harvey Barry II, MD inOV> 10/05/24 1556 Roxane Bills MD IMG CT PROCEDURES Final Result * (ABNORMAL) Uric acid (10/05/2024 10:06 AM EDT) Only the most recent of2 resultswithin the time period is included. URIC ACID 6.7(H) 2.3 - 6.6 mg/dL 10/05/2024 11:56 AM EDT [facility] Other Topography unknown / Unknown 10/05/2024 10:06 AM EDT 10/05/2024 10:15 AM EDT us Roxane Bills MD LAB BLOOD ORDERABLES Final Resul t [facility] [address] [place] [address], [facility] [address] [place] [address] * (ABNORMAL) Comprehensive metabolic panel (10/05/2024 10:06 AM EDT) Only the most recent of3 resultswithin the time period is included. Glucose 292(H) 70 - 100 mg/dL 10/05/2024 11:56 AM EDT [facility] Comment: Random Glucose Reference Range is dependent on time and content of last meal. Glucose of more than 200 mg/dL in a nonstressed, ambulatory subject supports the diagnosis of Diabetes Mellitus. ADA recommended reference range BUN 33(H) 7 - 25 mg/dL 10/05/2024 11:56 AM EDT [facility] CREATININE 1.33(H) 0.60 - 1.20 mg/dL 10/05/2024 11:56 AM EDT [facility] ESTIMATED GFR 44.401 10/05/2024 11:56 AM EDT [facility] Sodium 140 136 - 145 mmol/L 10/05/2024 11:56 AM EDT [facility] Potassium, Bld 4.2 3.5 - 5.1 mmol/L 10/05/2024 11:56 AM EDT [facility] Chloride 98 98 - 107 mmol/L 10/05/2024 11:56 AM EDT [facility] Carbon Dioxide 33.6(H) 21.0 - 31.0 mmol/L 10/05/2024 11:56 AM EDT [facility] Anion Gap 12.6 6.0 - 15.0 10/05/2024 11:56 AM EDT [facility] Calcium 9.0 8.6 - 10.3 mg/dL 10/05/2024 11:56 AM EDT [facility] TOTAL PROTEIN 7.7 6.4 - 8.9 g/dL 10/05/2024 11:56 AM EDT [facility] ALBUMIN LEVEL 4.1 3.5 - 5.7 g/dL 10/05/2024 11:56 AM EDT [facility] GLOBULIN 3.6 g/dL 10/05/2024 11:56 AM EDT [facility] ALBUMIN/GLOBULIN RATIO 1.1 10/05/2024 11:56 AM EDT [facility] BILIRUBIN,TOTAL 0.3 0.3 - 1.0 mg/dL 10/05/2024 11:56 AM EDT [facility] ASPARTATE AMINO TRANSFERASE 23 13 - 39 U/L 10/05/2024 11:56 AM EDT [facility] ALANINE AMINOTRANSFERASE 42 7 - 52 U/L 10/05/2024 11:56 AM EDT [facility] ALKALINE PHOSPHATASE 149(H) 34 - 104 U/L 10/05/2024 11:56 AM EDT [facility] CREATININE CLR CALC PHARMACY 46.51 10/05/2024 11:56 AM EDT [facility] Other Topography unknown / Unknown 10/05/2024 10:06 AM EDT 10/05/2024 10:15 AM EDT Roxane Bills MD LAB BLOOD ORDERABLES Final Resul t [facility] [address] [place] [id number], [facility] [address] [place] [phone] * Biopsy bone marrow (09/19/2024 11:37 AM EDT) 09/19/2024 11:3 7 AM EDT Impressions [facility] - 09/19/2024 11:[address]-guided bone marrow biopsy. Impression dictated by: Manish Mccurdy Jr., D.OJane 09/19/2024 11:38 AM Dictation Location: [facility]--22 Transcribed By: PWS 09/19/24 1138 Dictated By: Manish Mccurdy Jr, DO 09/19/24 1137 Signed By: <Electronically signed by Manish Mccurdy Jr, DO in OV> 09/19/24 1138 Narrative [facility] - 09/19/2024 11:41 AM EDT [facility] [place] [address] [place] [id number] Scan Report Signed Patient: Kelsea Turcios MR#: [id number] 58 : 1960 Acct:[id number] Age/Sex: 63 / F ADM Date: 09/19/24 Loc: CT Room: Type: [facility] Attending Dr: Roxane Bills MD Copies to: [...] Note Manish Mccurdy Jr., DO - 09/19/2024 [facility] [place] [address] [place] [address] CT Scan Report Signed Patient: Kelsea Turcios MMR#: [id number] 58 : 9Acct:[id number] Age/Sex: 63 / FADM Date: 09/19/24 Loc: CT Room:Type: [facility] Attending Dr: Roxane Bills MD Copies to: [...] Jr., D.OJane 09/19/2024 11:38 AM Dictation Location: [place] [address] Transcribed By: [facility] 09/19/24 1138 Dictated By: Manish Mccurdy Jr, DO 09/19/24 1137 Signed By: <Electronically signed by Manish Mccurdy Jr DO inOV> 09/19/24 1138 us Roxane Bills MD IN CLINIC/BEDSIDE ORDERABLES Fin al Result Performing Organization Address City/State/[facility] Co de Phone Number [facility] [address] [place] [address], * PATHOLOGY REQUEST FOR LAB FADI (09/19/2024 10:15 AM EDT) PATHOLOGY REQUEST FOR LAB FADI 09/22/2024 8:00 AM EDT [facility] Comment:See report. Scanned copy available in EMR. Other Topography unknown / Unknown 09/19/2024 10:15 AM EDT 09/19/2024 10:15 AM EDT us Roxane Bills MD LAB BLOOD ORDERABLES Final Resul t Performing Organization Address [facility] Co de Phone Number [facility] [address] [address], [facility] [address] [place] [address] * COAGULATION PROFILE (09/19/2024 9:31 AM EDT) PROTHROMBIN TIME 11.8 9.0 - 12.9 s 09/19/2024 9:46 AM EDT [facility] Comment: A hematocrit value greater than 55% may lead to inaccurate results in coagulation testing. Patients having hematocrit values >55% require a special collection tube for coagulation studies. Please contact the laboratory at [phone] for redraw instructions. INR 1.0 09/19/2024 9:46 AM EDT [facility] Comment: INR Therapeutic Range A) Pre- and [...] - 36.5 s 09/19/2024 9:46 AM EDT [facility] Comment: A hematocrit value greater than 55% may lead to inaccurate results in coagulation testing. Patients having hematocrit values >55% require a special collection tube for coagulation studies. Please contact the laboratory at [phone] for redraw instructions. Other Topography unknown / Unknown 09/19/2024 9:31 AM EDT 09/19/2024 9:35 AM EDT Narrative [facility] - 09/19/2024 9:46 AM EDT STAT FOR BX Roxane Bills MD LAB BLOOD ORDERABLES Final Resul t Performing Organization Address [facility] Co de Phone Number [address] [place] [address], [facility] [address] [place] [address] * (ABNORMAL) CBC auto differential (09/19/2024 9:31 AM EDT) Only the most recent of2 resultswithin the time period is included. WBC 11.3 3.8 - 11.6 10*3/uL 09/19/2024 9:39 AM EDT [facility] UNCORRECTED WHITE BLOOD COUNT 11.3 3.8 - 11.6 10*3/uL 09/19/2024 9:39 AM EDT [facility] RBC 4.56 3.60 - 5.00 10*6/uL 09/19/2024 9:39 AM EDT [facility] HEMOGLOBIN 13.0 11.8 - 15.4 g/dL 09/19/2024 9:39 AM EDT [facility] HEMATOCRIT 40.6 34.0 - 46.4 % 09/19/2024 9:39 AM EDT [facility] MCV 88.9 80 - 100 fL 09/19/2024 9:39 AM EDT [facility] MCH 28.4 24.7 - 34.3 pg 09/19/2024 9:39 AM EDT [facility] MCHC 32.0 32.0 - 35.0 g/dL 09/19/2024 9:39 AM EDT [facility] RED CELL DISTRIBUTION WIDTH, RDW 15.5(H) 11.9 - 15.3 % 09/19/2024 9:39 AM EDT [facility] PLATELET COUNT 227 150 - 450 10*3/uL 09/19/2024 9:39 AM EDT [facility] MEAN PLATELET VOLUME, MPV 6.9 6.3 - 10.7 fL 09/19/2024 9:39 AM EDT [facility] NEUTROPHILS, % 60.4 . % 09/19/2024 9:39 AM EDT [facility] LYMPHOCYTES, % 28.8 . % 09/19/2024 9:39 AM EDT [facility] MONOCYTE/MACROPHA GE, % 6.4 . % 09/19/2024 9:39 AM EDT [facility] EOSINOPHILS, % 3.8 . % 09/19/2024 9:39 AM EDT [facility] BASOPHILS, % 0.6 . % 09/19/2024 9:39 AM EDT [facility] NRBC 0.1 0 - 0.5 /100{WBC} 09/19/2024 9:39 AM EDT [facility] NEUTROPHILS 6.8 1.8 - 7.7 10*3/uL 09/19/2024 9:39 AM EDT [facility] LYMPHOCYTES 3.2 1.00 - 4.8 10*3/uL 09/19/2024 9:39 AM EDT [facility] MONOCYTES 0.7 0.0 - 0.8 10*3/uL 09/19/2024 9:39 AM EDT [facility] EOSINOPHILS 0.4 0.0 - 0.45 10*3/uL 09/19/2024 9:39 AM EDT [facility] BASOPHILS 0.1 0.0 - 0.2 10*3/uL 09/19/2024 9:39 AM EDT [facility] Blood (Blood) 09/19/2024 9:3 1 AM EDT 09/19/2024 9:35 AM EDT [facility] - 09/19/2024 9:39 AM EDT STAT FOR BX us Roxane Bills MD LAB BLOOD ORDERABLES Final Resul t [facility] [address] [place] [address], [facility] [address] [place] [address] * (ABNORMAL) FREE K+L LT CHAINS, QN, S (08/23/2024 11:34 AM EDT) FREE KAPPA LIGHT CHAINS, S 281.2(H) 3.3 - 19.4 mg/L 08/24/2024 3:08 PM EDT [facility] FREE LAMBDA LIGHT CHAINS, S 33.7(H) 5.7 - 26.3 mg/L 08/24/2024 3:08 PM EDT [facility] KAPPA/LAMBDA RATIO, S 8.34(H) 0.26 - 1.65 08/24/2024 3:08 PM T [facility] Comment: Performed at: [address] [id number] Candle Molder Machine: Jhoan Rich PhD, Phone: [phone] Other Topography unknown / Unknown 08/23/2024 11:34 AM EDT 08/23/2024 11:34 AM EDT Roxane Bills MD LAB BLOOD ORDERABLES Final Resul t [facility] [address] [place] [address], * (ABNORMAL) IMMUNOFIXATION,SERUM ([facility]) (08/23/2024 11:34 AM EDT) [facility] IMMUNOFIXATION, SERUM Comment(A A) . 08/25/2024 2:08 PM EDT [facility] Comment: 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 PLEASE NOTE: Samples from patients receiving DARZALEX(R) (daratumumab) or SARCLISA(R)(isatuximab-irfc) treatment can appear as an IgG kappa and mask a complete response (CR). If this patient is receiving these therapies, this MITCH assay interference can be removed by ordering test number [id number]- Immunofixation, Daratumumab-Specific, Serum or [id number]- Immunofixation, Isatuximab-Specific, Serum and submitting a new sample for testing or by calling the lab to add this test to the current sample. IMMUNOGLOBULIN G 1,832(H) 586 - 1,602 mg/dL 08/25/2024 2:08 PM T [facility] IMMUNOGLOBULIN A, SERUM 546(H) 87 - 352 mg/dL 08/25/2024 2:08 PM EDT [facility] IMMUNOGLOBULIN M, SERUM 97 26 - 217 mg/dL 08/25/2024 2:[address] [facility] Comment: Performed at: [address] [id number] Candle Molder Machine: Jhoan Rich PhD, Phone: [phone] Other Topography unknown / Unknown 08/23/2024 11:34 AM EDT 08/23/2024 11:34 AM EDT Roxane Bills MD LAB BLOOD ORDERABLES Final Resul t Performing Organization Address City/[facility]/ZIP Co de Phone Number [address] [address], * (ABNORMAL) Iron and TIBC (08/23/2024 11:34 AM EDT) Pathologist [facility] IRON 57 50 - 212 ug/dL 08/23/2024 1:15 PM EDT [facility] TOTAL IRON BINDING CAPACITY 364 255 - 450 ug/dL 08/23/2024 1:15 PM EDT [facility] % IRON SATURATION 15.7(L) 20 - 50 % 08/23/2024 1:15 PM EDT [facility] TRANSFERRIN 260 203 - 362 mg/dL 08/23/2024 1:15 PM EDT [facility] Other Topography unknown / Unknown 08/23/2024 11:34 AM EDT 08/23/2024 11:34 AM EDT Roxane Bills MD LAB BLOOD ORDERABLES Final Resul t Performing Organization Address [facility] Co de Phone Number [address] [address], [address] [address] * (ABNORMAL) Protein electrophoresis, serum (08/23/2024 11:34 AM EDT) [facility] TOTAL PROTEIN, SERUM 7.7 6.0 - 8.5 g/dL 08/24/2024 2:36 PM EDT [facility] ALBUMIN, SERUM 3.3 2.9 - 4.4 g/dL 08/24/2024 2:36 PM EDT [facility] [id number] 0.3 0.0 - 0.4 g/dL 08/24/2024 2:36 PM EDT [facility] [id number] 1.0 0.4 - 1.0 g/dL 08/24/2024 2:36 PM EDT [facility] BETA GLOBULIN 1.3 0.7 - 1.3 g/dL 08/24/2024 2:36 PM EDT [facility] GAMMA GLOBULIN 1.7 0.4 - 1.8 g/dL 08/24/2024 2:36 PM EDT [facility] M-SPIKE 1.0(H) Not Observed g/dL 08/24/2024 2:36 PM EDT [facility] GLOBULIN, TOTAL 4.4(H) 2.2 - 3.9 g/dL 08/24/2024 2:36 PM EDT [facility] A/G RATIO 0.8 0.7 - 1.7 08/24/2024 2:36 PM EDT [facility] SPE-NOTE Comment . 08/24/2024 2:36 PM EDT [facility] Comment: Protein electrophoresis scan will follow via computer, mail, or director of application development delivery. Performed at: [facility] [address] [id number] Candle Molder Machine: Jhoan Rich PhD, Phone: [phone] Other Topography unknown / Unknown 08/23/2024 11:34 AM EDT 08/23/2024 11:34 AM EDT Roxane Bills MD LAB BLOOD ORDERABLES Final Resul t Performing Organization Address City/[facility]/[place] [address], * (ABNORMAL) Lactate dehydrogenase (08/23/2024 11:34 AM EDT) Pathologist [facility] LDH LACTATE DEHYDROGENASE 277(H) 140 - 271 U/L 08/23/2024 1:15 PM EDT [facility] Other Topography unknown / Unknown 08/23/2024 11:34 AM EDT 08/23/2024 11:34 AM EDT Roxane Bills MD LAB BLOOD ORDERABLES Final Resul t Performing Organization Address City/[facility]/ZIP Co de Phone Number [place] [phone], [place] [phone] * Ferritin (08/23/2024 11:34 AM EDT) Pathologist [facility] FERRITIN 101.2 11.0 - 306.8 ng/mL 08/23/2024 2:49 PM EDT [facility] Other Topography unknown / Unknown 08/23/2024 11:34 AM EDT 08/23/2024 11:34 AM EDT Roxane Bills MD LAB BLOOD ORDERABLES Final Resul t [facility] [address] [place] [address], [facility] [address] [place] [address] * POCT glycosylated hemoglobin (Hb A1C) docked [...] Result from Last 3 Months Insurance [place]ICAID [place] [employer] MEDICARE ADVANTAGE Care Teams Php Mysql Developer Relationship Specialty Start Date End Date Giovanni Moreno MD [address] [place] [id number] PCP - General Family Medicine 09/18/22
--- OUTSIDE RECORDS SUMMARY | 2024-10-06 13:45 | XMS_ITS | Encounter Summary ---
Author Organization [facility] Address [address] [place] [address] Care Team Providers Care Kettle Hand Name Role Phone Giovanni Moreno MD Primary Care Provider +1 [phone] Encounter Details Date Type Department Care Team (Late Contact Info) Description 02/12/2023 External Result Encounter [facility] External Department Unsolicited Roxane Bills MD [address] [place] [address] Social History Tobacco Use Types [...] Visit [facility] [address] [place] [address] Jeannie Aguilar MD [address] [place] [address] 12/09/2024 10:30 AM EDT Office Visit [facility] [address] [place] [address] Mack Pride DPM [address] [address] 03/07/2025 2:00 PM EST Office Visit [facility] [address] [place] [address] Radha Svetlana Alexys, DO [address] [place] [address] documented as of this encounter Procedures Procedure [...] Mccurdy Jr., D.OJane02/12/2023 11:44 AM Dictation Location: [place] [address] Transcribed By: [facility] 02/12/23 1144 Dictated By: Manish Mccurdy Jr, DO 02/12/23 1137 Signed By: <Electronically signed by Manish Mccurdy Jr, DO in OV> 02/12/23 1144 Narrative 02/24/2023 12:16 PM EST [facility] Main [address] [address] [place] Scan Report Signed Patient: Kelsea Turcios MR#: [id number] 58 : 1960 Acct:[id number] Age/Sex: 62 / F ADM Date: 02/12/23 Loc: CT Room: Type: [facility] Attending Dr: Roxane Bills MD Copies to: Roxane Bills MD Ordering Provider: Roxane Bills MD Date of Service: 02/12/23 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 CT GUIDED [...] bx/aspir Procedure Note Radiology, Radiologist, - 02/24/2023 [facility] Main [place] [address] [place] [address] CT Scan Report Signed Patient: Kelsea Turcios MMR#: [id number] 58 : 9Acct:[id number] Age/Sex: 62 / FADM Date: 02/12/23 Loc: CT Room:Type: [facility] Attending Dr: Roxane Bills MD Copies to: Roxane Bills MD Ordering Provider: Roxane Bills MD Date of Service: 02/12/23 CT/CT guided bone marrow bx/aspir: MGUS ([id number]) CT/CT guided needle placement: . CT GUIDED [...] Mccurdy Jr., D.O.02/12/2023 11:44 AM Dictation Location: [place] [address] Transcribed By: [facility] 02/12/23 1144 Dictated By: Manish Mccurdy Jr, DO 02/12/23 1137 Signed By: <Electronically signed by Manish Mccurdy Jr, DO inOV> 02/12/23 1144 Roxane Bills MD IMG CT PROCEDURES Final Result documented in this encounter Visit Diagnoses Not on filedocumented in this encounter Care Teams Kettle Hand Relationship Specialty Start Date End Date Giovanni Moreno MD [address] [place] [address] PCP - General Family Medicine 09/18/22 documented as of this encounter
--- OUTSIDE RECORDS SUMMARY | 2024-10-06 13:46 | XMS_ITS | Encounter Summary ---
Author Organization [facility] Address [address] [place] [address] Care Team Providers Care Corn Chip Maker Name Role Phone Giovanni Moreno MD Primary Care Provider [phone] Encounter Details Date Type Department Care Team (Late Contact Info) Description 09/19/2024 External Result Encounter [facility] External Department Unsolicited Roxane Bills MD [address] [place] [address] Social History Tobacco Use Types [...] Visit [facility] [address] [place] [address] Jeannie Aguilar MD [address] [place] [address] 12/09/2024 10:30 AM EDT Office Visit [facility] P[facility] [address] [place] [address] Mack Pride DPM [address] [place] [address] 03/07/2025 2:00 PM EST Office Visit [facility] [address] [place] [address] RadhaSvetlana menjivar, DO [address] [place] [address] documented as of this encounter Procedures Procedure Name Priority Date/Time Associated Diagnosis Comments PATHOLOGY REQUEST FOR LAB FADI Routine 09/19/2024 10:15 AM EDT documented in this encounter Results * PATHOLOGY REQUEST FOR LAB FADI (09/19/2024 10:15 AM EDT) PATHOLOGY REQUEST FOR LAB FADI 09/22/2024 8:00 AM EDT [facility] Comment:See report. Scanned copy available in EMR. Other Topography unknown / Unknown 09/19/2024 10:15 AM EDT 09/19/2024 10:15 AM EDT us Roxane Bills MD LAB BLOOD ORDERABLES Final Resul t [facility] [address] [place] [address], [facility] [address] [place] [address] documented in this encounter Visit Diagnoses Not on filedocumented in this encounter Care Teams Corn Chip Maker Relationship Specialty Start Date End Date Giovanni Moreno MD [address] [place] [address] PCP - General Family Medicine 09/18/22 documented as of this encounter
--- OUTSIDE RECORDS SUMMARY | 2024-10-06 13:46 | XMS_ITS | Encounter Summary ---
Author Organization [facility] Address [address] [place] [address] Care Team Providers Care Grain Elevator Man Name Role Phone Giovanni Moreno MD Primary Care Provider [phone] Reason for Visit * Reason Comments Med Refill Encounter Details Date Type Department Care Team ([facility] Contact Info) Description 01/24/2023 Refill [facility] [address] [place] [address] Mack Pride DPM [address] [address] Diabetes mellitus due to underlying [...] Upcoming Encounters Date Type Department Care Team ([facility] Contact Info) Description 11/21/2024 11:30 AM EDT Office Visit [facility] [address] [place] [address] Jeannie Aguilar MD [address] [place] [address] 12/09/2024 10:30 AM EDT Office Visit [facility] [address] [place] [address] Mack Pride DPM [address] [address] 03/07/2025 2:00 PM EST Office Visit [facility] [address] [facility] [place] [address] Svetlana Garcia DO [address] [place] [address] documented as of this encounter Visit Diagnoses Diagnosis Diabetes mellitus due to underlying condition with diabetic polyneuropathy, with long-term current use of insulin (HCC)- Primary documented in this encounter Care Teams Grain Elevator Man Relationship Specialty Start Date End Date Giovanni Moreno MD [address] [place] [address] PCP - General Family Medicine 09/18/22 documented as of this encounter
--- OUTSIDE RECORDS SUMMARY | 2024-10-06 13:46 | XMS_ITS | Encounter Summary ---
Author Organization [facility] Address [address] [place] [address] Care Team Providers Care Biomedical Electronics Technician Name Role Phone Giovanni Moreno MD Primary Care Provider [phone] Encounter Details Date Type Department Care Team ([facility] Contact Info) Description 2022 Abstract [facility] [address] [place] [phone] Svetlana Garcia DO [address] [place] [address] Social History Tobacco Use Types Packs/Day Years [...] Encounters Date Type Department Care Team ([facility] Contact Info) Description 11/21/2024 11:30 AM EDT Office Visit [facility] [address] [place] [address] Jeannie Aguilar MD [address] [place] [address] 12/09/2024 10:30 AM EDT Office Visit [facility] [place] [facility] [address] [place] [address] Mack Pride DPM [address] [address] 03/07/2025 2:00 PM EST Office Visit [facility] [address] [place] [phone] Svetlana Garcia DO [address] [facility] [place] [address] documented as of this encounter Visit Diagnoses Not on filedocumented in this encounter Care Teams Biomedical Electronics Technician Relationship Specialty Start Date End Date Giovanni Moreno MD [address] [facility] [place] [address] PCP - General Family Medicine 09/18/22 documented as of this encounter
--- OUTSIDE RECORDS SUMMARY | 2024-10-06 13:46 | XMS_ITS | Encounter Summary ---
Author Organization [facility] Address [address] [place] [address] Care Team Providers Care Waterproofing Supervisor Name Role Phone Giovanni Moreno MD Primary Care Provider + [phone] Encounter Details Date Type Department Care Team (Late Contact Info) Description 09/02/2022 Abstract [facility] [address] [place] [phone] Lien Oglesby MA Social History Tobacco Use [...] AM EDT Office Visit [facility] [address] [place] [phone] Jeannie Aguilar MD [address] [place] [address] 12/09/2024 10:30 AM EDT Office Visit [facility] [address] [place] [address] Mack Pride DPM [address] [facility] [address] [place] [address] 03/07/2025 2:00 PM EST Office Visit [facility] [address] [place] [address] Svetlana Garcia, [address] [place] [place] [address] documented as of this encounter Visit Diagnoses Not on filedocumented in this encounter Care Teams Waterproofing Supervisor Relationship Specialty Start Date End Date Giovanni Moreno MD [address] [facility] [place] [address] PCP - General Family Medicine 09/18/22 documented as of this encounter
--- OUTSIDE RECORDS SUMMARY | 2024-10-06 13:46 | XMS_ITS | Encounter Summary ---
Author Organization [facility] Address [address] [place] [address] Care Team Providers Care Recycling Program Manager Name Role Phone Giovanni Moreno MD Primary Care Provider [phone] Reason for Visit * Reason Comments Med Refill Encounter Details Date Type Department Care Team ([facility] Contact Info) Description 09/25/2022 Refill [facility] [address] [place] [address] Mack Pride DPM [address] [address] Social History Tobacco Use Types Packs/Day Years [...] EDT Office Visit [facility] [address] [place] [address] Jeannie Aguilar MD [address] [place] [address] 12/09/2024 10:30 AM EDT Office Visit [facility] P[facility] [address] [place] [address] Mack Pride DPM [address] [address] 03/07/2025 2:00 PM EST Office Visit [facility] [address] [place] [address] Svetlana Garcia DO [address] [facility] [place] [address] documented as of this encounter Visit Diagnoses Not on filedocumented in this encounter Care Teams Recycling Program Manager Relationship Specialty Start Date End Date Giovanni Moreno MD [address] [facility] [place] [address] PCP - General Family Medicine 09/18/22 documented as of this encounter
--- OUTSIDE RECORDS SUMMARY | 2024-10-06 13:46 | XMS_ITS | Encounter Summary ---
Author Organization [facility] Address [address] [place] [address] Care Team Providers Care Sql Bi Developer Name Role Phone Giovanni Moreno MD Primary Care Provider [phone] Encounter Details Date Type Department Care Team ([facility] Contact Info) Description 01/29/2023 Abstract [facility] [address] [place] [phone] Svetlana Garcia DO [address] [place] [address] Social History Tobacco Use Types Packs/Day Years [...] Upcoming Encounters Date Type Department Care Team ([facility] Contact Info) Description 11/21/2024 11:30 AM EDT Office Visit [facility] [address] [place] [phone] Jeannie Aguilar MD [address] [place] [address] 12/09/2024 10:30 AM EDT Office Visit [facility] [place] P[facility] [address] [place] [address] Mack Pride DPM [address] [address] 03/07/2025 2:00 PM EST Office Visit [facility] [address] [place] [address] Svetlana Garcia DO [address] [facility] [place] [address] documented as of this encounter Visit Diagnoses Not on filedocumented in this encounter Care Teams Sql Bi Developer Relationship Specialty Start Date End Date Giovanni Moreno MD [address] [facility] [place] [address] PCP - General Family Medicine 09/18/22 documented as of this encounter
--- OUTSIDE RECORDS SUMMARY | 2024-10-06 13:46 | XMS_ITS | Encounter Summary ---
Author Organization [facility] Address [address] [place] [address] Care Team Providers Care Material Loader Name Role Phone Giovanni Moreno MD Primary Care Provider [phone] Encounter Details Date Type Department Care Team (Late Contact Info) Description 09/19/2024 External Result Encounter NOMS External Department Unsolicited Roxane Bills MD [address] [place] [address] Social History Tobacco Use Types [...] Visit [facility] [address] [place] [address] Jeannie Aguilar MD [address] [place] [address] 12/09/2024 10:30 AM EDT Office Visit [facility] POD [address] [place] [address] Mack Pride DPM [address] [address] 03/07/2025 2:00 PM EST Office Visit [facility] [address] [place] [address] Radha Svetlana Alexys, DO [address] [place] [address] documented as of this encounter Procedures Procedure Name Priority Date/Time Associated Diagnosis Comments BIOPSY BONE MARROW 09/19/2024 11 :37 AM EDT documented in this encounter Results * Biopsy bone marrow (09/19/2024 11:37 AM EDT) 09/19/2024 11:3 7 AM EDT Impressions [facility] - 09/19/2024 11:[address]-guided bone marrow biopsy. Impression dictated by: Manish Mccurdy Jr., DJaneOJane 09/19/2024 11:38 AM Dictation Location: [place] [address] Transcribed By: [facility] 09/19/24 1138 Dictated By: Manish Mccurdy Jr, DO 09/19/24 1137 Signed By: <Electronically signed by Manish Mccurdy Jr, DO in OV> 09/19/24 1138 Narrative [facility] - 09/19/2024 11:41 AM EDT [facility] Main [address] [address] [address] Scan Report Signed Patient: Kelsea Turcios MR#: [id number] 58 : 1960 Acct:[id number] Age/Sex: 63 / F ADM Date: 09/19/24 Loc: CT Room: Type: [facility] Attending Dr: Roxane Bills MD [...] Note Manish Mccurdy Jr., DO - 09/19/2024 [facility] Main [place] [address] [place] [address] CT Scan Report Signed Patient: Kelsea Turcios MMR#: [id number] 58 : [birth year]Acct:[id number] Age/Sex: 63 / FADM Date: 09/19/24 Loc: CT Room:Type: [facility] Attending Dr: Roxane Bills MD Copies to: Roxane Bills MD Ordering Provider: Rxoane Bills MD Date of Service: 09/19/24 CT/CT [...] Jr., D.OJane 09/19/2024 11:38 AM Dictation Location: [place] [address] Transcribed By: [facility] 09/19/24 1138 Dictated By: Manish Mccurdy Jr, DO 09/19/24 1137 Signed By: <Electronically signed by Manish Mccurdy Jr, DO inOV> 09/19/24 1138 us Roxane Bills MD IN CLINIC/BEDSIDE ORDERABLES Fin al Result Performing Organization Address [facility] Co de Phone Number [facility] [address] [place] [address], documented in this encounter Visit Diagnoses Not on filedocumented in this encounter Care Teams Material Loader Relationship Specialty Start Date End Date Giovanni Moreno MD [address] [place] [address] PCP - General Family Medicine 09/18/22 documented as of this encounter
--- OUTSIDE RECORDS SUMMARY | 2024-10-06 13:46 | XMS_ITS | Encounter Summary ---
Author Organization [facility] Address [address] [place] [address] Care Team Providers Care Child Life Therapist Name Role Phone Giovanni Moreno MD Primary Care Provider + [phone] Reason for Visit * Reason Comments Med Refill Encounter Details Date Type Department Care Team ([facility] Contact Info) Description 12/05/2022 Refill [facility] [address] [place] [phone] Svetlana Garcia, DO [address] [place] [address] Chronic obstructive pulmonary disease, unspecified (HCC) Social [...] Upcoming Encounters Date Type Department Care Team ([facility] Contact Info) Description 11/21/2024 11:30 AM EDT Office Visit [facility] [address] [place] [address] Jeannie Aguilar MD [address] [place] [address] 12/09/2024 10:30 AM EDT Office Visit [facility] P[facility] [address] [place] [address] Mack Pride DPM [address] [facility] [address] [place] [address] 03/07/2025 2:00 PM EST Office Visit [facility] [address] [place] [place] [address] Svetlana Garcia, DO [address] [facility] [place] [address] documented as of this encounter Visit Diagnoses Diagnosis Chronic obstructive pulmonary disease, unspecified (HCC) documented in this encounter Care Teams Child Life Therapist Relationship Specialty Start Date End Date Giovanni Moreno MD [address] [place] [address] PCP - General Family Medicine 09/18/22 documented as of this encounter
--- OUTSIDE RECORDS SUMMARY | 2024-10-06 13:46 | XMS_ITS | Encounter Summary ---
Author Organization [facility] Address [address] [place] [address] Care Team Providers Care Charge Aide Name Role Phone Giovanni Moreno MD Primary Care Provider [phone] Encounter Details Date Type Department Care Team (Late Contact Info) Description 09/18/2022 Abstract [facility]ODI[facility] [address] [facility] [address] [place] [address] Mack Pride DPM [address] [facility] 5 [place] [address] Social History Tobacco Use Types [...] Visit [facility] [address] [place] [address] Jeannie Aguilar MD [address] [place] [address] 12/09/2024 10:30 AM EDT Office Visit [facility] P[facility] [address] [place] [address] Mack Pride DPM [address] [place] [address] [place] [address] 03/07/2025 2:00 PM EST Office Visit [facility] [address] [place] [address] Svetlana Garcia DO [address] [facility] [address] [facility] [address] documented as of this encounter Visit Diagnoses Not on filedocumented in this encounter Care Teams Charge Aide Relationship Specialty Start Date End Date Giovanni Moreno MD [address] [place] [address] PCP - General Family Medicine 09/18/22 documented as of this encounter
--- NOTE | 2024-10-06 14:30 | PM.CN ---
Consult Note: HPI Data of Consult Patient: known to practice within the last 3 years Requesting Physician: Rachana London NP Primary Care Provider: [facility] Consult Narrative Reason for consult: f/u Narrative: Kelsea villatoro pleasant 63 year old female presents for evaluation and management of chronic low back pain. Patient notices increase in pain with walking and activity. Has been evaluated by NS and deemed non surgical. Pain today stabbing 5/10 in low back. pain increasing to 10/10 with standing walking and activity. utilizing gabapentin, norco, tizanidine, and gabapentin with benefit without side effects. recent left L4-5 L5-S1 TFESI providing relief. cc:: CC: Rachana London NP Review of Systems ROS Status of ROS 10 or more systems reviewed and unremarkable except as noted in history and below Musculoskeletal Reports: back pain, extremity pain and joint pain Meds Home Medications and Allergies Home Medications ?Medication ?Instructions ?Recorded ?Confirmed ?Type allopurinol 300 mg tablet 300 mg PO DAILY 10/30/22 09/26/24 History amlodipine 5 mg tablet (Norvasc) 5 mg PO DAILY 10/30/22 09/26/24 History brexpiprazole 3 mg tablet (Rexulti) 3 mg PO DAILY 10/30/22 09/26/24 History budesonide-formoterol HFA 160 2 inh inhalation BID 10/30/22 09/26/24 History mcg-4.5 mcg/actuation aerosol inhaler (Symbicort) carvedilol 25 mg tablet 25 mg PO BID 10/30/22 09/26/24 History cholecalciferol (vitamin D3) 50 2,000 unit PO BID 10/30/22 09/26/24 History mcg (2,000 unit) capsule colestipol 1 gram tablet 1 g PO BID 10/30/22 09/26/24 History dicyclomine 20 mg tablet 20 mg PO QID 10/30/22 09/26/24 History doxycycline hyclate 100 mg capsule 100 mg PO DAILY 10/30/22 09/26/24 History duloxetine 60 mg capsule,delayed 60 mg PO DAILY 10/30/22 09/26/24 History release (Cymbalta) furosemide 40 mg tablet 40 mg PO DAILY 10/30/22 09/26/24 History hydroxyzine HCl 10 mg tablet 10 mg PO Q8H 10/30/22 09/26/24 History insulin glargine 100 unit/mL (3 20 unit subcut DAILY 10/30/22 09/26/24 History mL) subcutaneous pen (Lantus Solostar U-100 Insulin) ipratropium 0.5 mg-albuterol 3 mg 3 ml inhalation Q6H 10/30/22 09/26/24 History (2.5 mg base)/3 mL nebulization soln ipratropium bromide 0.02 % 0.5 mg inhalation Q6H PRN 10/30/22 09/26/24 History solution for inhalation shortness of breath or wheezing levomilnacipran 120 mg capsule,24 120 mg PO DAILY 10/30/22 09/26/24 History hr,extended release (Fetzima) levothyroxine 50 mcg capsule 50 mcg PO DAILY 10/30/22 09/26/24 History magnesium oxide 500 mg PO DAILY 10/30/22 09/26/24 History mirtazapine 30 mg tablet 30 mg PO DAILY 10/30/22 09/26/24 History montelukast 10 mg tablet 10 mg PO DAILY 10/30/22 09/26/24 History (Singulair) omeprazole 40 mg capsule,delayed 40 mg PO DAILY 10/30/22 09/26/24 History release oxybutynin chloride 10 mg 10 mg PO DAILY 10/30/22 09/26/24 History tablet,extended release 24 hr sucralfate 1 gram tablet 1 g PO TID 10/30/22 09/26/24 History theophylline 200 mg 200 mg PO DAILY 10/30/22 09/26/24 History capsule,extended release 24 hr (Nishant-24) tizanidine 4 mg capsule (Zanaflex) 4 mg PO BID PRN muscle spasticity 10/30/22 09/26/24 History gabapentin 600 mg tablet See Rx Instructions .Route 12/10/23 Rx .COMPLEX #120 tabs naloxone 4 mg/actuation nasal 4 mg intranasal Q3M PRN opioid 03/04/24 09/26/24 Rx spray (Narcan) overdose #2 ea gabapentin 600 mg tablet See Rx Instructions .Route 03/21/24 09/26/24 Rx .COMPLEX #120 tabs gabapentin 600 mg tablet See Rx Instructions .Route 05/11/24 09/26/24 Rx .COMPLEX #120 tabs gabapentin 600 mg tablet See Rx Instructions .Route 06/02/24 09/26/24 Rx .COMPLEX #120 tabs gabapentin 600 mg tablet See Rx Instructions .Route 09/08/24 Rx .COMPLEX #120 tabs hydrocodone 5 mg-acetaminophen 325 1 tab PO TID PRN pain #90 tabs 09/08/24 09/26/24 Rx mg tablet hydrocodone 5 mg-acetaminophen 325 1 tab PO Q8H PRN pain #90 tabs 10/06/24 Rx mg tablet Allergies Allergy/AdvReac Type Severity Reaction Status Date / Time honey Allergy Severe Anaphylaxis Verified 09/26/24 11:07 codeine Allergy Mild itching Verified 09/26/24 11:07 morphine AdvReac Vomiting Verified 09/26/24 11:07 Exam Constitutional Documenting provider has reviewed patient's vital signs: yes Common normals: no apparent distress, oriented x3, healthy appearing, alert and well nourished General appearance: cooperative Nutritional appearance: obese HENMT Common normals: normocephalic, hearing grossly normal bilaterally and moist oral mucous membranes Head and scalp: normocephalic Eye Common normals: PERRL Pupil: PERRL Neck & C-Spine Common normals: full ROM General: normal visual inspection Chest Common normals: inspection of chest normal Respiratory Common normals: normal respiratory effort, no retractions and no use of accessory muscles Other: chronic O2 Back & Pelvis Lumbar spine/lower back: ROM limited, pain with ROM and straight leg raise negative bilaterally Sacroiliac joints: SI joint(s) abnormal Other: bilateral sij positive gabi(patricks), gaenslens, thigh thrust, compression test Extremity Other: LLE non pitting edema no redness warmth or discoloration, scarring to left miramontes Neuro Common normals: oriented x3 and moves all extremities Sensorium/orientation: alert Gait (neuro): antalgic and assistive device used walker Psych Common normals: mental status grossly normal, thought process normal, cooperative, affect normal, speech normal and activity/motor behavior normal Speech: normal speech Thought process: normal thought process Results Additional Findings Additional findings: If on a controlled substance or opioids, I have checked an [place] report on this patient and there are no aberrancies noted in the prescribing history.??If on a controlled substance or opioid a drug screen was completed and reviewed within the last year, and if there has not been a drug screen completed we ordered one today to monitor higher risk, state monitored pain medication use. As part of providing excellent, safe, comprehensive care, the following was completed at our patient's visit: 1. A medication reconciliation and review to ensure accurate knowledge of current/active medications, including asking our patients to inform us about any sqhi-fmo-vikgrkj medications or herbal remedies/nutritional supplements/alternative remedies. 2. A review to specifically ensure our patients have had annual screening for screening for depression, screening for tobacco use, and screening for unhealthy alcohol use. For concerning screenings had a discussion with the patient, provided patient education, and recommended follow-up with primary care provider when appropriate. If patient noted with a risk of falling, they received education on strength, gait, and balance training to prevent future risk of falling. Assessment and Plan Assessment and Plan (1) Lumbar stenosis with neurogenic claudication: (2) Sacroiliitis: Assessment and Plan: The patient has had over 3 months of moderate to severe low back pain with functional impairment and inadequate response to conservative care including NSAIDS (unless there are contraindication such as concurrent blood thinners), multiple oral or topical pain medications, and home exercise program/physical therapy.? Patient has completed >6 weeks of guided home exercise program and/or formal physical therapy program without relief of their symptoms. The Oswestry Disability Index was completed, and the patient scored a 54%.? The patient noted the following:?? moderate to severe pain impacting ADLS, sitting, standing, sleeping, social life, and travel ? We discussed the risks and benefits of the procedure with the patient, and we are NOT planning on using sedation as outlined in the guidelines from Medicare unless there is a documented reason that sedation would be strongly recommended.?? ?The procedure will be completed with fluoroscopic guidance.? (3) Uncontrolled diabetes mellitus: (4) Encounter for long-term use of opiate analgesic: (5) Muscle spasm: Plan proceed with bilateral SIJ injection continue current medications, risks vs benefits reviewed continue HEP as tolerated continue f/u with endocrinology, although A1c improving continues to report BS >250-300. increased risk of infection and hyperglycemia post ANNE reviewed with pt, pt agreeable to plan of care. will f/u with endocrinology if she has increased BS after TFESI f/u 2 weeks after injection
== END 2024-10-06 13:43 | disposition home or self-care (01) ==
LOC: PM 13:43
PROVIDERS: Visit Provider Nurse Practitioner
DX: M48.062 Spinal stenosis, lumbar region with neurogenic claudication (principal); M46.1 Sacroiliitis, not elsewhere classified; E13.69 Other specified diabetes mellitus with other specified complication; Z79.891 Long term (current) use of opiate analgesic; M62.838 Other muscle spasm
CPT/HCPCS: G0463

== ENCOUNTER 2024-10-17 08:16 | Day surgery (SDC) | payer MEDICARE, MEDICAID, SELFPAY ==
--- OUTSIDE RECORDS SUMMARY | 2021-06-20 06:46 | XMS_ITS | Continuity of Care Document ---
Author Organization [facility] Address [address] [place] [address] Phone Care Team Providers Care Commercial Escrow Officer Name Role Phone Josafat Motley Unavailable Unavailable [...] Diagnoses Date Provider Providers Copied on Encounter [facility], [address], [place], [id number] , [place] tel: [phone] [facility] No Information 2 Visci DO Josafat. [address], [place], [id number] , [place]. tel: [phone] OFFICE/OUTPA TIENT VISIT, [facility], [address], [place], [id number] , [place] tel: [phone] [facility] Med Refills (chief complaint) Body mass index [BMI] 45.0-49.9, adultCOPD mixed typeEssential hypertensionLocalize d swelling, mass and lump, right lower limb 1 Pavlock DO Max. [address], [place], [id number] , [place]. tel: [phone] [facility], [address] [place] [address], [id number] , [place] tel: [phone] [facility] No Information 1 Pavlock DO Max. [address], [place], [id number] , [place]. tel: [phone] [facility], [address], [place], [id number] , [place] tel: [phone] [facility] No Information 1 Pavlock DO Max. [address], [place], [id number] , [place]. tel: [phone] [facility], [address] [place] [address], [id number] , [place] tel: [phone] [facility] No Information 1 Pavlock DO Max. [address] [place] [address], [id number] , [place]. tel: [phone] OFFICE/OUTPA TIENT VISIT, [facility], [address], [place], [id number] , [place] tel: [phone] [facility] Medication (chief complaint)N europathy (chief complaint) NeuropathyBody mass index [BMI]40.0-44.9, adult Oct- 1 [facility]. [address], [place], [id number] , [place]. tel: [phone] OFFICE/OUTPA TIENT VISIT, [facility], [address], [place], [id number] , [place] tel: [phone] [facility] check up (chief complaint) Body mass index [BMI]40.0-44.9, adultChronic low back pain, unspecified back pain laterality, unspecified whether sciatica presentLocalized swelling, mass and lump, right lower limbRash 1 [facility]. [address], [place], [id number] , [place]. tel: [phone] OFFICE/OUTPA TIENT VISIT, [facility], [address] [place] [address], [id number] , [place] tel: [phone] [facility] check up (chief complaint) Body mass index [BMI]40.0-44.9, adultPhlebitisType 2 diabetes mellitus with diabetic neuropathy, with long-term current use of insulinRash 1 [facility]. [address], [place], [id number] , [place]. tel: [phone] [facility], [address] [place] [address], [id number] , [place] tel: [phone] [facility] No Information 1 [facility] DO Li. [address] [place] [address], [id number] , [place]. tel: [phone] OFFICE/OUTPA TIENT VISIT, [facility], [address] [place] [address], [id number] , [place] tel: [phone] [facility] check up (chief complaint)d iabetes (chief complaint) Body mass index [BMI] 45.0-49.9, adultRashType 2 diabetes mellitus with diabetic neuropathy, with long-term current use of insulinWound of right lower extremity, subsequent encounter 1 [facility]. [address], [place], [id number] , [place]. tel:[phone] [facility], [address] [place] [address], [id number] , [place] tel:+ [phone] [facility] No Information 1 [facility]. [address] [place] [address], [id number] , [place]. tel:[phone] OFFICE/OUTPA TIENT VISIT, [facility], [address] [place] [address], [id number] , [place] tel:+ [phone] [facility] f/u pain/lab draw (chief complaint)R ramiro (chief complaint) Serum potassium elevatedBody mass index [BMI] 45.0-49.9, adultRash 1 [facility]. [address] [place] [address], [id number] , [place]. tel:[phone] OFFICE/OUTPA TIENT VISIT, [facility], [address] [place] [address], [id number] , [place] tel:+ [phone] [facility] med refill (chief complaint)d iabetes (chief complaint) Type 2 diabetes mellitus with diabetic neuropathy, with long-term current use of insulinNeuropathySer um potassium elevatedWound of right lower extremity, subsequent encounter 1 [facility]. [address] [place] [address], [id number] , [place]. tel:[phone] OFFICE/OUTPA TIENT VISIT, [facility], [address] [place] [address], [id number] , [place] tel:+ [phone] [facility] ER follow up (chief complaint) Body mass index [BMI]40.0-44.9, adultType 2 diabetes mellitus with diabetic neuropathy, with long-term current use of insulinPhlebitis 1 [facility]. [address] [place] [address] [place], [id number] , [place]. tel: [phone] OFFICE/OUTPA TIENT VISIT, [facility], [address] [place] [address], [id number] , [place] tel: [phone] [facility] f/u right leg (chief complaint)M usculoskele reinaldo pain (chief complaint) Essential hypertensionType 2 diabetes mellitus with diabetic neuropathy, with long-term current use of insulinMixed hyperlipidemiaLocali zed swelling, mass and lump, right lower limb 1 Pavlock DO Max. [address] [place] [address], [id number] , [place]. tel: [phone] OFFICE/OUTPA TIENT VISIT, [facility], [address] [place] [address], [id number] , [place] tel: [phone] [facility] f/u leg pain (chief complaint)M usculoskele reinaldo pain (chief complaint) Body mass index [BMI] 45.0-49.9, adultLocalized swelling, mass and lump, right lower limb 1 Pavlock DO Max. [address] [place] [address], [id number] , [place]. tel: [phone] OFFICE/OUTPA TIENT VISIT, [facility], [address] [place] [address], [id number] , [place] tel: [phone] [facility] est care (chief complaint)M usculoskele reinaldo pain (chief complaint)d iabetes (chief complaint) Posterior right knee painEssential hypertensionCOPD mixed typeMixed hyperlipidemiaInsomn ia, unspecified typeNeuropathyType 2 diabetes mellitus with diabetic neuropathy, with long-term current use of insulinLong term (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Hypothyroidis m, unspecified typeChronic low back pain, unspecified back pain laterality, unspecified whether sciatica presentOther chronic pain 1 Pavlock DO Max. [address], [place], [id number] , [place]. tel: [phone] [facility], [address], [place], [id number] , [place] tel: [phone] [facility] Dental examination 4 John DMD July. [address], [place], [id number] , [place]. tel: [phone] OFFICE/OUTPA TIENT VISIT, EST [facility], [address], [place], [id number] , [place] tel: [phone] [facility] Influenza Vaccine 3 Dialloi DO Josafat. [address], [place], [id number] , [place]. tel: [phone] Family History Family Member Type Diagnosis Age At Onset No Information Immunizations Vaccine Date Status Comments Pneumo (2 yrs or older)(PPV) administered Source: New Immunization Record Flu (split) (3 yrs or older) administered Source: New Immunization Record Payers Payer name Insurance type Covered green party ID Authoriza tiflakito(s) Medicaid [facility] [id number] Social History Type Description Quantity Date Captured [...] on due Goal Diabetes screening. Due on O due Goal Urine microalbumin. Due on due Goal Depression screening. Due on due Goal Zoster vaccine (). Due on due Goal FOBT. Due on due Goal Tdap. Due on due Goal Colonoscopy. Due on due Goal Dilated eye exam. [...] Mammogram. Due on due Goal Zoster vaccine (1st). Due on due Goal Urinalysis. Due on due Goal Diabetes screening. Due on due Goal ECG. Due on due Goal Hemoglobin A1C. Due on due Goal Urinalysis. Due on due Goal Diabetes screening. Due on O due Goal ECG. Due on due Goal Influenza Vaccine. Due on due Goal FOBT. Due on due Goal Mammogram. Due on due Goal Tdap. Due on due Goal Colonoscopy. Due on due Goal Depression screening. Due on due Goal Zoster vaccine (1st). Due on due Goal Dental exam. Due [...] education , guidance, and counseling completed Goal Tdap. Due on due Goal ECG. Due on due Goal Diabetes screening. Due on due Goal Depression screening. Due on due Goal FOBT. Due on due Goal Urinalysis. Due on due Goal Mammogram. Due on due Goal Urine microalbumin. Due on due Goal Zoster vaccine (). Due on due Goal Pneumococcal vaccine due Goal Dilated eye exam. Due on Oct due Goal Foot exam. Due on due Goal Dental exam. Due on due Goal Hemoglobin A1C. Due on due Goal Colonoscopy. Due on due Goal Influenza Vaccine. Due on due Goal Mammogram. Due on due Goal Tdap. Due on due Goal ECG. Due on due Goal Urinalysis. Due on due Goal Diabetes screening. Due on due Goal Depression screening. Due on due Goal Colonoscopy. Due on due Goal Dilated eye exam. [...] completed Goal Mammogram. Due on due Goal Zoster vaccine (). Due on due Goal Colonoscopy. Due on due Goal Diabetes screening. Due on due Goal ECG. Due on due Goal Urinalysis. Due on due Goal Tdap. Due on due Goal Depression screening. Due on due Goal FOBT. Due on due Goal Influenza Vaccine. Due on due Goal Foot exam. Due on due Goal Urine microalbumin. Due on due Goal Dilated eye exam. Due on Sep due Goal Pneumococcal vaccine due Goal Dental exam. Due on due Goal Foot exam. Due on due Goal Dilated eye exam. Due on August due Goal Zoster vaccine (). Due on due Goal FOBT. Due on due Goal Lipid panel. Due [...] Goal Diabetes screening. Due on due Goal Dietary management education , guidance, and counseling completed Goal Tobacco cessation counseling completed Goal Hemoglobin A1C. Due on due Goal Dental exam. Due on due Goal Foot exam. Due on due Goal Pneumococcal vaccine due Goal Dilated eye exam. Due on August due Goal Urine microalbumin. Due on due [...] painful at the end of every day [facility] diabetes The problem is g etting [...] refill. Pt states she needs refills on [place] and Vitamin D. Pt states that she [...] Álvarez ,above was reviewed and agreed with [facility] Musculoskeletal pain It occurs c onstantly [...] she had her U/S orders performed at [facility] last Thursday. Reports are in pt's chart. Pt states that nothing is changed with her leg/pain. No worsening symptoms, nothing improved. Pt states she will need a refill on her [place] by Thursday. TAWANA Adkins f/u leg pain [...] concerns. TAWANA Álvarez Musculoskeletal pain Severity le zeoy is moderate. It occurs intermittently and is [...] Dominance: right. est care Pt here to [facility]. Pt c/o R LE pain and [...] No Information Instructions Date Instruction Additional Infor abhijit Dietary management e ducation, guidance, and counseling [...]
--- OUTSIDE RECORDS SUMMARY | 2024-10-17 08:19 | XMS_ITS | Encounter Summary ---
Author Organization [facility] Address [address] [place] [address] Care Team Providers Care Cut In Worker Name Role Phone Giovanni Moreno MD Primary Care Provider [phone] Encounter Details Date Type Department Care Team (Late Contact Info) Description 10/05/2024 External Result Encounter [facility] External Department Unsolicited Roxane Bills MD [address] [place] [address] Social History Tobacco Use Types [...] Visit [facility] [address] [place] [phone] Jeannie Aguilar MD [address] [place] [address] 12/09/2024 10:30 AM EDT Office Visit [facility] [address] [place] [address] Mack Pride DPM [address] [address] 03/07/2025 2:00 PM EST Office Visit [facility] [address] [place] [address] Svetlana Garcia, DO [address] [address] documented as of this encounter [...] Barry M.D. 10/05/2024 3:56 PM Dictation Location: [place] [address] Transcribed By: [facility] 10/05/24 1556 Dictated By: Harvey Barry II, MD 10/05/24 1542 Signed By: <Electronically signed by Harvey Barry II, MD in OV> 10/05/24 1556 Narrative 10/05/2024 3:59 PM EDT [facility] Main [address] [address] Nuclear Medicine Report Signed Patient: Kelsea Turcios MR#: [id number] 58 : 1960 Acct:[id number] Age/Sex: 63 / F ADM Date: 10/05/24 Loc: XT Room: [facility] Attending Dr: Roxane Bills MD Copies [...] Procedure Note Harvey Barry MD - 10/05/2024 [facility] Main [place] [address] [place] [address] Nuclear Medicine Report Signed Patient: Kelsea Turcios MMR#: [id number] 58 : 9Acct:[id number] Age/Sex: 63 / FADM Date: 10/05/24 Loc: Room:Type: [facility] Attending Dr: Roxane Bills MD Copies [...] Barry M.D. 10/05/2024 3:56 PM Dictation Location: [place] [address] Transcribed By: [facility] 10/05/24 1556 Dictated By: Harvey Barry II, MD 10/05/24 1542 Signed By: <Electronically signed by Harvey Barry II, MD inO> 10/05/24 1556 Roxane Bills MD IMG CT PROCEDURES Final Result documented in this encounter Visit Diagnoses Not on filedocumented in this encounter Care Teams Cut In Worker Relationship Specialty Start Date End Date Giovanni Moreno MD [address] [place] [address] PCP - General Family Medicine 09/18/22 documented as of this encounter
--- OUTSIDE RECORDS SUMMARY | 2024-10-17 08:19 | XMS_ITS | Encounter Summary ---
Author Organization [facility] Address [address] [place] [address] Care Team Providers Care Panel Coverer Name Role Phone Giovanni Moreno MD Primary Care Provider [phone] Encounter Details Date Type Department Care Team (Late Contact Info) Description 02/02/2024 External Result Encounter [facility] External Department Unsolicited Roxane Bills MD [address] [place] [address] Social History Tobacco Use Types [...] Visit [facility] [address] [place] [phone] Jeannie Aguilar MD [address] [place] [address] 12/09/2024 10:30 AM EDT Office Visit [facility] [address] [place] [address] Mack Pride DPM [address] [address] 03/07/2025 2:00 PM EST Office Visit [facility] [address] [place] [address] Radha Svetalna Alexys, DO [address] [place] [address] documented as of this encounter Procedures Procedure [...] Domenico Brown M.D.02/02/2024 1:46 PM Dictation Location: [place] [address] Transcribed By: [facility] 02/02/24 1346 Dictated By: Domenico Brown DO 02/02/24 1344 Signed By: <Electronically signed by Domenico Brown DO in OV> 02/02/24 1346 Narrative 02/02/2024 1:[address] [facility] Main [address] [address] XRay Report Signed Patient: Kelsea Turcios MR#: [id number] 58 : 1960 Acct:[id number] Age/Sex: 63 / F ADM Date: 02/02/24 [...] Procedure Note Radiology, Radiologist, MD - 02/02/2024 [facility] Main [place] [address] [place] [address] XRay Report Signed Patient: Kelsea Turcios MMR#: [id number] 58 : 9Acct:[id number] Age/Sex: 63 / FADM Date: 02/02/24 Loc: Room:Type: [facility] Attending Dr: Roxane Bills MD Copies [...] Domenico Brown M.D.02/02/2024 1:46 PM Dictation Location: [place] [address] Transcribed By: [facility] 02/02/24 1346 Dictated By: Domenico Brown DO 02/02/24 1344 Signed By: <Electronically signed by Domenico Brown DO in OV> 02/02/24 1346 us Roxane Bills MD IMG XR PROCEDURES Final Result documented in this encounter Visit Diagnoses Not on filedocumented in this encounter Care Teams Panel Coverer Relationship Specialty Start Date End Date Giovanni Moreno MD [address] [place] [address] PCP - General Family Medicine 09/18/22 documented as of this encounter
--- OUTSIDE RECORDS SUMMARY | 2024-10-17 08:19 | XMS_ITS | Clinical Summary ---
Author Organization [facility] Healthcare Address [address] [place] [address] Care Team Providers Care Electrical Superintendent Name Role Phone Giovanni Moreno MD Primary Care Provider [phone] Allergies Active Allergy Reactions Criticality Noted Date Comments Codeine Itching,Rash Low 09/22/2022 Honey Anaphylaxis,Hives High 09/08/2019 Morphine Rash Low 09/22/2022 Gastrointestinal Upset Tramadol Hallucinations Low 09/02/2023 Medications amLODIPine (Norvasc) 10 MG tablet Take 10 mg by mouth Daily 07/22/19 23 Active Rexulti 4 MG tablet Take 1 tablet by mouth Daily 08/22/19 23 Active Coreg 25 MG tablet Take 25 [...] 20 mg as needed in the evening. 09/03/19 23 Active DULoxetine (Cymbalta) [address] capsule Take 60 mg by mouth Daily 06/25/19 23 Active sucralfate (Carafate) 1 g tablet every 12 (twelve) hours Active oxybutynin XL (Ditropan XL) 10 MG 24 hr tablet 1 (one) time each day at the same time Active omeprazole (PriLOSEC) [address] capsule 1 (one) time each day at the same time Active levothyroxine (Synthroid, Levoxyl) 75 MCG tablet 01/02/20 22 Active fluticasone (Flonase) 50 MCG/ACT nasal sprayIndications: Chronic obstructive pulmonary disease, unspecified ([facility]) USE 1 SPRAY INTO EACH NOSTRIL EVERY DAY FOR 30 DAYS 16 mL 12/06/19 23 Active HYDROcodone-aceta minophen ([place]) 5-325 MG tablet 02/07/20 23 Active hydrOXYzine HCl (Atarax) 10 MG tablet 12/31/19 23 Active prednisoLONE acetate (Pred-Forte) 1 % ophthalmic suspension 01/27/20 23 Active tiZANidine (Zanaflex) 4 MG tablet Take 4 mg by mouth in the evening Active Refresh Tears 0.5 % ophthalmic solution 03/18/20 23 Active Continuous Blood Gluc Sensor (FreeStyle Alfredo 2 Sensor) [facility] 07/01/19 24 Active BD Pen Needle Micro U/F 32G X 6 MM [facility] 05/05/19 24 Active Fetzima 120 MG extended release capsule 07/06/19 24 Active mirtazapine (Remeron) 45 MG tablet 07/06/19 24 Active olopatadine (Patanol) 0.1 % ophthalmic solution 06/26/19 24 Active furosemide (Lasix) 40 MG tablet 05/17/19 24 Active diclofenac sodium 1 % gelIndications:Di abetes mellitus due to underlying condition with diabetic polyneuropathy, with long-term current use of insulin ([facility]) APPLY 4 GRAMS TO AFFECTED AREA 4 TIMES DAILY 100 g 3 01/12/20 24 Active aspirin 81 MG EC tablet 07/01/19 24 Active clobetasol (Temovate) 0.05 % cream 11/08/19 24 Active cloNIDine (Catapres) 0.1 MG tablet 07/01/19 24 Active loperamide (Imodium A-D) 2 MG tablet 1 tablet 07/01/19 24 Active zonisamide (Zonegran) 25 MG capsule 07/01/19 24 Active gabapentin (Neurontin) 600 MG tablet 01/05/20 24 Active budesonide-formot hannah (Symbicort) 160-4.5 MCG/ACT inhalerIndication s:Chronic obstructive pulmonary disease, unspecified COPD type ([facility]) Inhale 2 puffs in the morning and 2 puffs before bedtime. Rinse mouth with water after use to reduce aftertaste and incidence of candidiasis. Do not swallow.. 1 each 5 01/14/20 24 025 Active ipratropium-albut hannah (Duo-Neb) 0.5-2.5 mg/3 mL nebulizer solutionIndicatio ns:Chronic obstructive pulmonary disease, unspecified COPD type (HCC) Take 3 mL by nebulization 4 (four) times a day as needed for wheezing or shortness of breath 360 mL 11 01/14/20 24 025 Active montelukast (Singulair) 10 MG tabletIndications :Chronic obstructive pulmonary disease, unspecified COPD type (HCC) Take 1 tablet (10 mg) by mouth 1 (one) time each day at the same time 30 tablet 5 01/14/20 24 Active theophylline ER (Nishant-24) 200 MG 24 hr capsuleIndication s:Chronic obstructive pulmonary disease, unspecified COPD type (HCC) Take 1 capsule (200 mg) by mouth 1 (one) time each day at the same time 30 capsule 5 01/14/20 24 Active insulin lispro-aabc (Lyumjev KwikPen) 100 UNIT/ML penIndications:Ty pe 2 diabetes mellitus with hyperglycemia, with long-term current use of insulin ([facility]) Inject 40 Units under the skin in the morning and 40 Units at noon and 40 Units in the evening. Inject with meals. 36 pen 1 05/25/19 25 025 Active albuterol HFA 90 mcg/act inhalerIndication s:Chronic obstructive pulmonary disease, unspecified COPD type (HCC) INHALE 2 PUFFS IN THE MORNING AND 2 PUFFS IN THE EVENING AND 2 PUFFS BEFORE BEDTIME. 18 g 5 08/04/19 25 Active insulin glargine (Lantus SoloStar) 100 UNIT/ML penIndications:Ty pe 2 diabetes mellitus with hyperglycemia, with long-term current use of insulin ([facility]) Inject 50 Units under the skin in the morning. 45 mL 1 08/18/19 25 025 Active insulin aspart (NovoLOG FLEXPEN) 100 UNIT/ML penIndications:Ty pe 2 diabetes mellitus with hyperglycemia, with long-term current use of insulin ([facility]) Inject 40 Units under the skin in the morning and 40 Units at noon and 40 Units in the evening. Inject before meals. 120 mL 1 08/18/19 25 Active dapagliflozin (Farxiga) 10 MGIndications:Typ e 2 diabetes mellitus with hyperglycemia (HCC) Take 1 tablet (10 mg) by mouth Daily 90 tablet 1 08/23/19 25 Active Continuous Glucose Sensor (FreeStyle Alfredo 3 Plus Sensor) miscIndications:T ype 2 diabetes mellitus with hyperglycemia, with long-term current use of insulin ([facility]) 1 Bar Every 15 Days 6 each 1 08/23/19 25 025 Active semaglutide (Ozempic, 0.25 or 0.5 MG/DOSE,) 2 MG/1.5ML solution pen-injectorIndic ations:Type 2 diabetes mellitus with hyperglycemia, with long-term current use of insulin ([facility]) Inject 0.5 mg under the skin 1 (one) time per week 4.5 mL 1 08/23/19 25 025 Active busPIRone (Buspar) 5 MG tablet TAKE 1 TABLET BY ORAL ROUTE 1 TIMES PER DAY IN THE AFTERNOON 08/09/19 25 Active hydrOXYzine HCl (Atarax) 25 MG tablet Take 25 mg by mouth 3 (three) times a day as needed for anxiety 08/13/19 25 Active Ozempic, 0.25 or 0.5 MG/DOSE, 2 MG/3ML solution pen-injector 08/23/19 25 Active Continuous Glucose Equipment Technician (FreeStyle Alfredo 3 [place]) deviceIndications :Type 2 diabetes mellitus with hyperglycemia, with long-term current use of insulin ([facility]) USE DIRECTED 1 each 09/13/19 25 Active Active Problems Problem Noted Date Diagnosed Date Obstructive sleep apnea syndrome 07/19/2020 Chronic obstructive pulmonary disease 07/19/2020 Resolved Problems Problem Noted Date Diagnosed Date Resolved Date Acute hyperkalemia 01/14/2024 Acute metabolic encephalopathy 01/14/2024 01/14/2024 PETER (acute kidney injury) 01/14/2024 Bipolar 1 disorder 01/14/2024 4 Bipolar disorder with depression 01/14/2024 01/14/2024 Breast [...] bowel disease 01/14/202406/2023 Kidney disease 01/14/2024 01/14/2024 supervisor intermediates (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 01/14/2024 01/14/2024 Lumbar [...] 09/30/2024 10:10 AM EDT Office Visit [facility] [address] [place] [address] Mack Pride DPM Diabetes mellitus due to underlying condition with diabetic polyneuropathy, with long-term current use of insulin (HCC) (Primary Dx); Pain due to onychomycosis of toenails of both feet; Xerosis cutis 09/30/2024 Bamboo flowsheet [facility] [address] [place] [address] Mack Pride DPM 09/19/2024 External Result Encounter [facility] External Department Unsolicited Roxane Bills MD 09/19/2024 External Result Encounter [facility] External Department Unsolicited Roxane Bills MD 09/19/2024 External Result Encounter [facility] External Department Unsolicited Roxane Bills MD 09/19/2024 External Result Encounter [facility] External Department Unsolicited Roxane Bills MD 09/19/2024 External Result Encounter [facility] External Department Unsolicited Roxane Bills MD 09/09/2024 Refill [facility] [address] [place] [address] Jeannie Aguilar MD Type 2 diabetes mellitus with hyperglycemia, with long-term current use of insulin (HCC) 08/25/2024 1:30 PM EDT Office Visit [facility] [address] [place] [address] Svetlana Garcia DO Chronic obstructive pulmonary disease, unspecified COPD type (HCC) (Primary Dx); Obstructive sleep apnea syndrome 08/25/2024 Bamboo flowsheet [facility] [address] [place] [address] Svetlana Garcia DO 08/25/2024 Travel 08/23/2024 External Result Encounter [facility] External Department Unsolicited Roxane Bills MD 08/23/2024 External Result Encounter [facility] External Department Unsolicited Roxane Bills MD 08/23/2024 External Result Encounter [facility] External Department Unsolicited Roxane Bills MD 08/22/2024 11:30 AM EDT Office Visit [facility] [address] [place] [address] Jeannie Aguilar MD Type 2 diabetes mellitus with hyperglycemia, with long-term current use of insulin (HCC) (Primary Dx); Vitamin D deficiency; Primary hypertension ; Hyperlipemia, mixed ; Insulin long-term use (HCC); Encounter for dietary consultation; Stage 3b chronic kidney disease ([facility]); Class 3 severe obesity due to excess calories with serious comorbidity and body mass index (BMI) of 45.0 to 49.9 in adult ([facility]); Type 2 diabetes mellitus with hyperglycemia (HCC) 08/22/2024 Bamboo flowsheet [facility] [address] [place] [address] Jeannie Aguilar MD 08/17/2024 Refill [facility] [address] [place] [address] Valeri, Isela, ACCOUNTANT CLERK Type 2 diabetes mellitus with hyperglycemia, with long-term current use of insulin (HCC) 07/30/2024 Refill [facility] [address] [place] [address] Svetlana Garcia, Chronic obstructive pulmonary disease, unspecified COPD type ([facility]) from Last 3 Months Immunizations Immunization Administration Dates Next Due HepB-CpG 12/16/2022,06/13/2022 Influenza Whole 02/23/2013 Influenza, injectable, MDCK, preservative free, quadrivalent 12/25/2021,01/03/2021,02/16/2019 Influenza, injectable, MDCK, quadrivalent 01/28/2018 Influenza, injectable, quadrivalent 02/11/2017 Influenza, injectable, quadr ivalent, preservative free 12/12/2022,07/01/2022,01/16/2020 Influenza, seasonal, injectable 12/25/2021,01/03 Influenza, trivalent, adjuvanted 12/17/2023 Moderna SARS-CoV-2 Booster Vaccination 1 Moderna SARS-CoV-2 Vaccination 2,03/12/2021,01/24/2021,07/12 Pneumococcal Conjugate PCV [...] EDT Office Visit [facility] [address] [place] [address] Jeannie Aguilar MD [address] [place] [address] 12/09/2024 10:30 AM EDT Office Visit [facility] [address] [place] [phone] Mack Pride DPM [address] [address] 03/07/2025 2:00 PM EST Office Visit [facility] [address] [place] [phone] Svetlana Garcia DO [address] [place] [address] Health Maintenance Due Date Last Done Comments CT Colonography 1958 Colonoscopy 1958 Colorectal Cancer Screening 1960 FIT-DNA 1958 FIT 1958 FOBT 1960 Sigmoidoscopy 1960 Mammogram 1998 Influenza Vaccine (#1) 2024 , 12/12/2022, 07/01/2022, Additional history exists Pneumococcal Vaccine: 65+ Years Completed 02/18/2022, 10/28/2021, 07/31/2020, Additional history exists Procedures Procedure Name Priority [...] Barry M.D. 10/05/2024 3:56 PM Dictation Location: [place] [address] Transcribed By: [facility] 10/05/24 1556 Dictated By: Harvey Barry II, MD 10/05/24 1542 Signed By: <Electronically signed by Harvey Barry II, MD in OV> 10/05/24 1556 Narrative 10/05/2024 3:59 PM EDT [facility] [place] [address] Nuclear Medicine Report Signed Patient: Kelsea Turcios MR#: [id number] 58 : 1960 Acct:[id number] Age/Sex: 63 / F ADM Date: 10/05/24 Loc: Room: Type: [facility] RCR Attending Dr: Roxane Bills MD [...] Procedure Note Harvey Barry MD - 10/05/2024 [facility] [place] [address] Nuclear Medicine Report Signed Patient: Kelsea Turcios MMR#: [id number] 58 : [birth year]Acct:[id number] Age/Sex: 63 / FADM Date: 10/05/24 Loc: Room:Type: [facility] Attending Dr: Roxane Bills MD Copies to: MD Harvey Manzo II, MD Ordering Provider: Rxoane Bills MD Date of Service: 10/05/24 PET/PET [...] Barry M.D. 10/05/2024 3:56 PM Dictation Location: [place] [address] Transcribed By: [facility] 10/05/24 1556 Dictated By: Harvey Barry II, MD 10/05/24 1542 Signed By: <Electronically signed by Harvey Barry II, MD inOV> 10/05/24 1556 Roxane Bills MD IMG CT PROCEDURES Final Result * (ABNORMAL) Uric acid (10/05/2024 10:06 AM EDT) Only the most recent of2 resultswithin the time period is included. URIC ACID 6.7(H) 2.3 - 6.6 mg/dL 10/05/2024 11:56 AM EDT [facility] Other Topography unknown / Unknown 10/05/2024 10:06 AM EDT 10/05/2024 10:15 AM EDT us Roxane Bills MD LAB BLOOD ORDERABLES Final Resul t [facility] [address] [place] [address], [facility] [address] [place] [address] * (ABNORMAL) Comprehensive metabolic panel (10/05/2024 10:06 AM EDT) Only the most recent of3 resultswithin the time period is included. Glucose 292(H) 70 - 100 mg/dL 10/05/2024 11:56 AM EDT [facility] Comment: Random Glucose Reference Range is dependent on time and content of last meal. Glucose of more than 200 mg/dL in a nonstressed, ambulatory subject supports the diagnosis of Diabetes Mellitus. ADA recommended reference range BUN 33(H) 7 - 25 mg/dL 10/05/2024 11:56 AM EDT [facility] CREATININE 1.33(H) 0.60 - 1.20 mg/dL 10/05/2024 11:56 AM EDT [facility] ESTIMATED GFR 44.401 10/05/2024 11:56 AM EDT [facility] Sodium 140 136 - 145 mmol/L 10/05/2024 11:56 AM T [facility] Potassium, Bld 4.2 3.5 - 5.1 mmol/L 10/05/2024 11:56 AM EDT [facility] Chloride 98 98 - 107 mmol/L 10/05/2024 11:56 AM EDT [facility] Carbon Dioxide 33.6(H) 21.0 - 31.0 mmol/L 10/05/2024 11:56 AM EDT [facility] Anion Gap 12.6 6.0 - 15.0 10/05/2024 11:56 AM EDT [facility] Calcium 9.0 8.6 - 10.3 mg/dL 10/05/2024 11:56 AM EDT [facility] TOTAL PROTEIN 7.7 6.4 - 8.9 g/dL 10/05/2024 11:56 AM EDT [facility] ALBUMIN LEVEL 4.1 3.5 - 5.7 g/dL 10/05/2024 11:56 AM EDT [facility] GLOBULIN 3.6 g/dL 10/05/2024 11:56 AM EDT [facility] ALBUMIN/GLOBULIN RATIO 1.1 10/05/2024 11:56 AM EDT [facility] BILIRUBIN,TOTAL 0.3 0.3 - 1.0 mg/dL 10/05/2024 11:56 AM EDT [facility] ASPARTATE AMINO TRANSFERASE 23 13 - 39 U/L 10/05/2024 11:56 AM EDT [facility] ALANINE AMINOTRANSFERASE 42 7 - 52 U/L 10/05/2024 11:56 AM EDT [facility] ALKALINE PHOSPHATASE 149(H) 34 - 104 U/L 10/05/2024 11:56 AM EDT [facility] CREATININE CLR [facility] 46.51 10/05/2024 11:56 AM EDT [facility] Other Topography unknown / Unknown 10/05/2024 10:06 AM EDT 10/05/2024 10:15 AM EDT us Roxane Bills MD LAB BLOOD ORDERABLES Final Resul t Performing Organization Address City/State/[facility] [place] [address], [facility] [address] [place] [address] * Biopsy bone marrow (09/19/2024 11:37 AM EDT) 09/19/2024 11:3 7 AM EDT Impressions [facility] - 09/19/2024 11:[address]-guided bone marrow biopsy. Impression dictated by: Manish Mccurdy Jr., D.O. 09/19/2024 11:38 AM Dictation Location: [place] [address] Transcribed By: [facility] 09/19/24 1138 Dictated By: Manish Mccurdy Jr, DO 09/19/24 1137 Signed By: <Electronically signed by Manish Mccurdy Jr, DO in OV> 09/19/24 1138 Narrative [facility] - 09/19/2024 11:41 AM EDT [facility] Main [place] [address] [place] [address] CT Scan Report Signed Patient: Kelsea Turcios MR#: [id number] 58 : 1960 Acct:[id number] Age/Sex: 63 / F ADM Date: 09/19/24 Loc: CT Room: Type: [facility] Attending Dr: Roxane Bills MD Copies [...] local anesthesia. Utilizing CT guidance, an 11-gauge [employer] biopsy needle was advanced into the right [...] Note Manish Mccurdy Jr., DO - 09/19/2024 [facility] [place] [address] CT Scan Report Signed Patient: Kelsea Turcios MMR#: [id number] 58 : 9Acct:[id number] Age/Sex: 63 / FADM Date: 09/19/24 Loc: CT Room:Type: [facility] Attending Dr: Roxane Bills MD Copies [...] Jr., D.O. 09/19/2024 11:38 AM Dictation Location: [place] [address] Transcribed By: [facility] 09/19/24 1138 Dictated By: Manish Mccurdy Jr, DO 09/19/24 1137 Signed By: <Electronically signed by Manish Mccurdy Jr, DO inOV> 09/19/24 1138 Roxane Bills MD IN CLINIC/BEDSIDE ORDERABLES Fin al Result Performing Organization Address City/[facility]/[place] [address], * PATHOLOGY REQUEST FOR LAB FADI (09/19/2024 10:15 AM EDT) PATHOLOGY REQUEST FOR LAB FADI 09/22/2024 8:00 AM EDT [facility] Comment:See report. Scanned copy available in EMR. Other Topography unknown / Unknown 09/19/2024 10:15 AM EDT 09/19/2024 10:15 AM EDT Roxane Bills MD LAB BLOOD ORDERABLES Final Resul t Performing Organization Address City/[facility] Co de Phone Number [address] [address], [address] [address] * COAGULATION PROFILE (09/19/2024 9:31 AM EDT) Pathologist [facility] PROTHROMBIN TIME 11.8 9.0 - 12.9 s 09/19/2024 9:46 AM EDT [facility] Comment: A hematocrit value greater than 55% may lead to inaccurate results in coagulation testing. Patients having hematocrit values >55% require a special collection tube for coagulation studies. Please contact the laboratory at [phone] for redraw instructions. INR 1.0 09/19/2024 9:46 AM EDT [facility] Comment: INR Therapeutic Range A) Pre- and [...] - 36.5 s 09/19/2024 9:46 AM EDT [facility] Comment: A hematocrit value greater than 55% may lead to inaccurate results in coagulation testing. Patients having hematocrit values >55% require a special collection tube for coagulation studies. Please contact the laboratory at [phone] for redraw instructions. Other Topography unknown / Unknown 09/19/2024 9:31 AM EDT 09/19/2024 9:35 AM EDT Narrative [facility] - 09/19/2024 9:46 AM EDT STAT FOR BX Roxane Bills MD LAB BLOOD ORDERABLES Final Resul t [facility] [address] [place] [address], [facility] [address] [place] [address] * (ABNORMAL) CBC auto differential (09/19/2024 9:31 AM EDT) Only the most recent of2 resultswithin the time period is included. Pathologist [facility] WBC 11.3 3.8 - 11.6 10*3/uL 09/19/2024 9:39 AM EDT [facility] UNCORRECTED WHITE BLOOD COUNT 11.3 3.8 - 11.6 10*3/uL 09/19/2024 9:39 AM EDT [facility] RBC 4.56 3.60 - 5.00 10*6/uL 09/19/2024 9:39 AM EDT [facility] HEMOGLOBIN 13.0 11.8 - 15.4 g/dL 09/19/2024 9:39 AM EDT [facility] HEMATOCRIT 40.6 34.0 - 46.4 % 09/19/2024 9:39 AM EDT [facility] MCV 88.9 80 - 100 fL 09/19/2024 9:39 AM EDT [facility] MCH 28.4 24.7 - 34.3 pg 09/19/2024 9:39 AM EDT [facility] MCHC 32.0 32.0 - 35.0 g/dL 09/19/2024 9:39 AM EDT [facility] RED CELL DISTRIBUTION WIDTH, RDW 15.5(H) 11.9 - 15.3 % 09/19/2024 9:39 AM EDT [facility] PLATELET COUNT 227 150 - 450 10*3/uL 09/19/2024 9:39 AM EDT [facility] MEAN PLATELET VOLUME, MPV 6.9 6.3 - 10.7 fL 09/19/2024 9:39 AM EDT [facility] NEUTROPHILS, % 60.4 . % 09/19/2024 9:39 AM EDT [facility] LYMPHOCYTES, % 28.8 . % 09/19/2024 9:39 AM EDT [facility] MONOCYTE/MACROPHA GE, % 6.4 . % 09/19/2024 9:39 AM EDT [facility] EOSINOPHILS, % 3.8 . % 09/19/2024 9:39 AM EDT [facility] BASOPHILS, % 0.6 . % 09/19/2024 9:39 AM EDT [facility] NRBC 0.1 0 - 0.5 /100{WBC} 09/19/2024 9:39 AM EDT [facility] NEUTROPHILS 6.8 1.8 - 7.7 10*3/uL 09/19/2024 9:39 AM EDT [facility] LYMPHOCYTES 3.2 1.00 - 4.8 10*3/uL 09/19/2024 9:39 AM EDT [facility] MONOCYTES 0.7 0.0 - 0.8 10*3/uL 09/19/2024 9:39 AM EDT [facility] EOSINOPHILS 0.4 0.0 - 0.45 10*3/uL 09/19/2024 9:39 AM EDT [facility] BASOPHILS 0.1 0.0 - 0.2 10*3/uL 09/19/2024 9:39 AM EDT [facility] Blood (Blood) 09/19/2024 9:3 1 AM EDT 09/19/2024 9:35 AM EDT Narrative [facility] - 09/19/2024 9:39 AM EDT STAT FOR BX us Roxane Bills MD LAB BLOOD ORDERABLES Final Resul t [facility] [address] [place] [id number], [facility] [address] [place] [phone] * (ABNORMAL) FREE K+L LT CHAINS, QN, S (08/23/2024 11:34 AM EDT) FREE KAPPA LIGHT CHAINS, S 281.2(H) 3.3 - 19.4 mg/L 08/24/2024 3:08 PM T [facility] FREE LAMBDA LIGHT CHAINS, S 33.7(H) 5.7 - 26.3 mg/L 08/24/2024 3:08 PM EDT [facility] KAPPA/LAMBDA RATIO, S 8.34(H) 0.26 - 1.65 08/24/2024 3:08 PM EDT [facility] Comment: Performed at: [address] [id number] Pressed Or Blown Glass Worker: Jhoan Rich PhD, Phone: [phone] Other Topography unknown / Unknown 08/23/2024 11:34 AM EDT 08/23/2024 11:34 AM EDT us Roxane Bills MD LAB BLOOD ORDERABLES Final Resul t Performing Organization Address City/[facility]/ZIP Co de Phone Number [facility] [address] [place] [address], [place] * (ABNORMAL) IMMUNOFIXATION,SERUM ([facility]) (08/23/2024 11:34 AM EDT) Pathologist [facility] IMMUNOFIXATION, SERUM Comment(A A) . 08/25/2024 2:08 PM EDT [facility] Comment: 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 PLEASE NOTE: Samples from patients receiving DARZALEX(R) (daratumumab) or SARCLISA(R)(isatuximab-irfc) treatment can appear as an IgG kappa and mask a complete response (CR). If this patient is receiving these therapies, this MITCH assay interference can be removed by ordering test number [id number]- Immunofixation, Daratumumab-Specific, Serum or [id number]- Immunofixation, Isatuximab-Specific, Serum and submitting a new sample for testing or by calling the lab to add this test to the current sample. IMMUNOGLOBULIN G 1,832(H) 586 - 1,602 mg/dL 08/25/2024 2:08 PM EDT [facility] IMMUNOGLOBULIN A, SERUM 546(H) 87 - 352 mg/dL 08/25/2024 2:08 PM EDT [facility] IMMUNOGLOBULIN M, SERUM 97 26 - 217 mg/dL 08/25/2024 2:08 PM EDT [facility] Comment: Performed at: [address] [id number] Pressed Or Blown Glass Worker: Jhoan Rich PhD, Phone: [phone] Other Topography unknown / Unknown 08/23/2024 11:34 AM EDT 08/23/2024 11:34 AM EDT Roxane Bills MD LAB BLOOD ORDERABLES Final Resul t Performing Organization Address City/[facility]/ZIP Co de Phone Number [facility] [address] [place] [address], [place] * (ABNORMAL) Iron and TIBC (08/23/2024 11:34 AM EDT) Pathologist [facility] IRON 57 50 - 212 ug/dL 08/23/2024 1:15 PM EDT [facility] TOTAL IRON BINDING CAPACITY 364 255 - 450 ug/dL 08/23/2024 1:15 PM EDT [facility] % IRON SATURATION 15.7(L) 20 - 50 % 08/23/2024 1:15 PM EDT [facility] TRANSFERRIN 260 203 - 362 mg/dL 08/23/2024 1:15 PM EDT [facility] Other Topography unknown / Unknown 08/23/2024 11:34 AM EDT 08/23/2024 11:34 AM EDT Roxane Bills MD LAB BLOOD ORDERABLES Final Resul t Performing Organization Address City/State/[facility] Co de Phone Number [facility] [address] [place] [phone], [facility] [address] [place] [phone] * (ABNORMAL) Protein electrophoresis, serum (08/23/2024 11:34 AM EDT) Pathologist [facility] TOTAL PROTEIN, SERUM 7.7 6.0 - 8.5 g/dL 08/24/2024 2:36 PM EDT [facility] ALBUMIN, SERUM 3.3 2.9 - 4.4 g/dL 08/24/2024 2:36 PM EDT [facility] [id number]-3-[id number] 0.3 0.0 - 0.4 g/dL 08/24/2024 2:36 PM EDT [facility] [id number]-[id number] 1.0 0.4 - 1.0 g/dL 08/24/2024 2:36 PM EDT [facility] BETA GLOBULIN 1.3 0.7 - 1.3 g/dL 08/24/2024 2:36 PM EDT [facility] GAMMA GLOBULIN 1.7 0.4 - 1.8 g/dL 08/24/2024 2:36 PM EDT [facility] M-SPIKE 1.0(H) Not Observed g/dL 08/24/2024 2:36 PM EDT [facility] GLOBULIN, TOTAL 4.4(H) 2.2 - 3.9 g/dL 08/24/2024 2:36 PM EDT [facility] A/G RATIO 0.8 0.7 - 1.7 08/24/2024 2:36 PM EDT [facility] SPE-NOTE Comment . 08/24/2024 2:36 PM EDT [facility] Comment: Protein electrophoresis scan will follow via computer, mail, or abstract maker delivery. Performed at: [address] [id number] Pressed Or Blown Glass Worker: Jhoan Rich PhD, Phone: [phone] Other Topography unknown / Unknown 08/23/2024 11:34 AM EDT 08/23/2024 11:34 AM EDT us Roxane Bills MD LAB BLOOD ORDERABLES Final Resul t Performing Organization Address [facility] [place] [address], * (ABNORMAL) Lactate dehydrogenase (08/23/2024 11:34 AM EDT) LDH LACTATE DEHYDROGENASE 277(H) 140 - 271 U/L 08/23/2024 1:15 PM EDT [facility] Other Topography unknown / Unknown 08/23/2024 11:34 AM EDT 08/23/2024 11:34 AM EDT us Roxane Bills MD LAB BLOOD ORDERABLES Final Resul t Performing Organization Address [facility] [place] [address], [facility] [address] [place], [place] [id number] * Ferritin (08/23/2024 11:34 AM EDT) FERRITIN 101.2 11.0 - 306.8 ng/mL 08/23/2024 2:49 PM EDT [facility] Other Topography unknown / Unknown 08/23/2024 11:34 AM EDT 08/23/2024 11:34 AM EDT us Roxane Bills MD LAB BLOOD ORDERABLES Final Resul t [facility] [address] [place] [address], [facility] [address] [place] [address] * POCT glycosylated hemoglobin (Hb A1C) docked [...] from Last 3 Months Insurance MEDICAID [place] [facility] MEDICARE ADVANTAGE Care Teams Electrical Superintendent Relationship Specialty Start Date End Date Giovanni Moreno MD [address] [facility] [place] [address] PCP - General Family Medicine 09/18/22
--- OUTSIDE RECORDS SUMMARY | 2024-10-17 08:19 | XMS_ITS | Encounter Summary ---
Author Organization [facility] Address [address] [place] [address] Phone Care Team Providers Care Photographic Equipment Inspector Name Role Phone Unavailable Primary Care Provider Unavailabl e Encounter Details Date Type Department Care Team (Late st Contact Info) Description 12/25/2021 Orders Only [facility] [address] [place] [address] Conversion, Onbase Social History Tobacco Use Types [...]
--- OUTSIDE RECORDS SUMMARY | 2024-10-17 08:19 | XMS_ITS | Encounter Summary ---
Author Organization [facility] Address [address] [place] [address] Care Team Providers Care Behavioral Interventionist Name Role Phone Giovanni Moreno MD Primary Care Provider +[phone] Encounter Details Date Type Department Care Team (Late Contact Info) Description 10/05/2024 External Result Encounter [facility] External Department Unsolicited Roxane Bills MD [address] [place] [address] Social History Tobacco Use Types [...] Visit [facility] [address] [place] [address] Jeannie Aguilar MD [address] [place] [address] 12/09/2024 10:30 AM EDT Office Visit [facility] POD [address] [place] [address] Mack Pride DPM [address] [place] [address] 03/07/2025 2:00 PM EST Office Visit [facility] PULM [address] [place] [address] Svetlana Garcia, DO [address] [place] [address] documented as of this encounter Procedures Procedure Name Priority Date/Time Associated Diagnosis Comments URIC ACID Routine 10/05/2024 10:06 AM EDT COMPREHENSIVE METABOLIC PANEL Routine 10/05/2024 10:06 AM EDT documented in this encounter Results * (ABNORMAL) Uric acid (10/05/2024 10:06 AM EDT) URIC ACID 6.7(H) 2.3 - 6.6 mg/dL 10/05/2024 11:56 AM EDT [facility] Other Topography unknown / Unknown 10/05/2024 10:06 AM EDT 10/05/2024 10:15 AM EDT Roxane Bills MD LAB BLOOD ORDERABLES Final Resul t [facility] [address] [place] [address], [facility] [address] [place] [address] * (ABNORMAL) Comprehensive metabolic panel (10/05/2024 10:06 AM EDT) Glucose 292(H) 70 - 100 mg/dL 10/05/2024 11:56 AM EDT [facility] Comment: Random Glucose Reference Range is dependent on time and content of last meal. Glucose of more than 200 mg/dL in a nonstressed, ambulatory subject supports the diagnosis of Diabetes Mellitus. ADA recommended reference range BUN 33(H) 7 - 25 mg/dL 10/05/2024 11:56 AM EDT [facility] CREATININE 1.33(H) 0.60 - 1.20 mg/dL 10/05/2024 11:56 AM EDT [facility] ESTIMATED GFR 44.401 10/05/2024 11:56 AM EDT [facility] Sodium 140 136 - 145 mmol/L 10/05[facility]2024 [facility] Potassium, Bld 4.2 3.5 - 5.1 mmol/L 10/05/2024 11:56 AM EDT [facility] Chloride 98 98 - 107 mmol/L 10/05/2024 11:56 AM EDT [facility] Carbon Dioxide 33.6(H) 21.0 - 31.0 mmol/L 10/05/2024 11:56 AM EDT [facility] Anion Gap 12.6 6.0 - 15.0 10/05/2024 11:[facility] Calcium 9.0 8.6 - 10.3 mg/dL 10/05/2024 11:56 AM EDT [facility] TOTAL PROTEIN 7.7 6.4 - 8.9 g/dL 10/05/2024 11:56 AM EDT [facility] ALBUMIN LEVEL 4.1 3.5 - 5.7 g/dL 10/05/2024 11:[facility] GLOBULIN 3.6 g/dL 10/05/2024 11:56 AM [facility] ALBUMIN/GLOBULIN RATIO 1.1 10/05/2024 11:56 AM [facility] BILIRUBIN,TOTAL 0.3 0.3 - 1.0 mg/dL 10/05/2024 11:56 AM EDT [facility] ASPARTATE AMINO TRANSFERASE 23 13 - 39 U/L 10/05/2024 11:56 AM EDT [facility] ALANINE AMINOTRANSFERASE 42 7 - 52 U/L 10/05/2024 11:56 [facility] ALKALINE PHOSPHATASE 149(H) 34 - 104 U/L 10/05/2024 11:56 AM [facility] CREATININE CLR [facility] 46.51 10/05/2024 11:56 AM [facility] Other Topography unknown / Unknown 10/05/2024 10:06 AM EDT 10/05/2024 10:15 AM EDT us Roxane Bills MD LAB BLOOD ORDERABLES Final Resul t [facility] [address] [place] [address], [facility] [address] [place] [address] documented in this encounter Visit Diagnoses Not on filedocumented in this encounter Care Teams Behavioral Interventionist Relationship Specialty Start Date End Date Giovanni Moreno MD [address] [place] [address] PCP - General Family Medicine 09/18/22 documented as of this encounter
--- OUTSIDE RECORDS SUMMARY | 2024-10-17 08:19 | XMS_ITS | Clinical Summary ---
Author Organization [facility] tem Address [id number] [address] [place] [address] Care Team Providers Care Safety Technician Name Role Phone Svetlana Garcia DO Primary Care Provider [phone] Social History Tobacco Use Types Packs/Day Years [...] 12/12/2024 Medical Devices Not on file Insurance [facility] MEDICAID Care Teams Safety Technician Relationship Specialty Start Date End Date Svetlana Garcia DO PCP - General Internal Medicine 09/21/20
--- OUTSIDE RECORDS SUMMARY | 2024-10-17 08:20 | XMS_ITS | Encounter Summary ---
Author Organization [facility] Address [address] [place] [address] Care Team Providers Care Hot Bread Baker Name Role Phone Giovanni Moreno MD Primary Care Provider [phone] Encounter Details Date Type Department Care Team (Late Contact Info) Description 02/06/2023 External Result Encounter [facility] External Department Unsolicited Roxane Bills MD [address] [place] [address] Social History Tobacco Use Types [...] Visit [facility] [address] [place] [address] Jeannie Aguilar MD [address] [place] [address] 12/09/2024 10:30 AM EDT Office Visit [facility] POD [address] [place] [address] Mack Pride DPM [address] [address] 03/07/2025 2:00 PM EST Office Visit [facility] [address] [place] [address] Radha, Svetlana Alexys, DO [address] [place] [address] documented as of this encounter Procedures Procedure [...] Domenico Brown M.D.02/06/2023 4:08 PM Dictation Location: [place] [address] Transcribed By: [facility] 02/06/23 1608 Dictated By: Domenico Brown DO 02/06/23 1606 Signed By: <Electronically signed by Domenico Brown DO in OV> 02/06/23 1608 Narrative 02/24/2023 12:16 PM EST [facility] Main [address] [address] XRay Report Signed Patient: Kelsea Turcios MR#: [id number] [birth year] : 1960 Acct:[id number] Age/Sex: 62 / F ADM Date: 02/06/23 Loc: XT [facility]: [facility] Att[facility] Dr: Roxane Bills MD [...] survey Procedure Note Radiology, Radiologist, - 02/24/2023 [facility] Main [place] [address] [place] [address] XRay Report Signed Patient: Kelsea Turcios MMR#: [id number] 58 : 9Acct:[id number] Age/Sex: 62 / FADM Date: 02/06/23 Loc: Room:Type: [facility] RCR Attending Dr: Roxane Bills [...] Domenico Brown M.D.02/06/2023 4:08 PM Dictation Location: [place] [address] Transcribed By: [facility] 02/06/23 1608 Dictated By: Domenico Brown DO 02/06/23 1606 Signed By: <Electronically signed by Domenico Brown DO in OV> 02/06/23 1608 us Roxane Bills MD IMG XR PROCEDURES Final Result documented in this encounter Visit Diagnoses Not on filedocumented in this encounter Care Teams Hot Bread Baker Relationship Specialty Start Date End Date Giovanni Moreno MD [address] [place] [address] PCP - General Family Medicine 09/18/22 documented as of this encounter
--- OUTSIDE RECORDS SUMMARY | 2024-10-17 08:20 | XMS_ITS | Encounter Summary ---
Author Organization [facility] Address [address] [place] [address] Care Team Providers Care Property Consultant Name Role Phone Giovanni Moreno MD Primary Care Provider [phone] Encounter Details Date Type Department Care Team (Late Contact Info) Description 09/02/2022 Abstract [facility] [address] [place] [phone] Lien Oglesby MA Social History Tobacco Use [...] EDT Office Visit [facility] [address] [place] [address] Jeannie Aguilar MD [address] [place] [address] 12/09/2024 10:30 AM EDT Office Visit [facility] POD [address] [place] [address] Mack Pride DPM [address] [facility] 5 [place] [address] 03/07/2025 2:00 PM EST Office Visit [facility] [address] [place] [place] [address] Svetlana Garcia, [address] [place] [address] documented as of this encounter Visit Diagnoses Not on filedocumented in this encounter Care Teams Property Consultant Relationship Specialty Start Date End Date Giovanni Moreno MD [address] [facility] [place] [address] PCP - General Family Medicine 09/18/22 documented as of this encounter
--- OUTSIDE RECORDS SUMMARY | 2024-10-17 08:20 | XMS_ITS | Encounter Summary ---
Author Organization [facility] Address [address] [place] [address] Care Team Providers Care Technical Fellow Name Role Phone Giovanni Moreno MD Primary Care Provider [phone] Encounter Details Date Type Department Care Team (Late Contact Info) Description 02/12/2023 External Result Encounter [facility] External Department Unsolicited Roxane Bills MD [address] [place] [address] Social History Tobacco Use Types [...] Visit [facility] [address] [place] [address] Jeannie Aguilar MD [address] [place] [address] 12/09/2024 10:30 AM EDT Office Visit [facility] POD [address] [place] [address] Mack Pride DPM [address] [address] 03/07/2025 2:00 PM EST Office Visit [facility]UL[facility] [address] [place] [address] Radha Svetlana Alexys, DO [address] [place] [address] documented as of this encounter Procedures Procedure [...] Mccurdy Jr., D.OJane02/12/2023 11:44 AM Dictation Location: [place] [address] Transcribed By: [facility] 02/12/23 1144 Dictated By: Manish Mccurdy Jr, DO 02/12/23 1137 Signed By: <Electronically signed by Manish Mccurdy Jr, DO in OV> 02/12/23 1144 Narrative 02/24/2023 12:16 PM EST [facility] Main [address] [address] [address] Scan Report Signed Patient: Kelsea Turcios MR#: [id number] 58 : 1960 Acct:[id number] Age/Sex: 62 / F ADM Date: 02/12/23 Loc: CT Room: Type: [facility] Attending Dr: Roxane Bills MD Copies to: Roxane Bills MD Ordering Provider: Roxane Bills MD Date of Service: 02/12/23 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 CT GUIDED [...] bx/aspir Procedure Note Radiology, Radiologist, - 02/24/2023 [facility] Main [place] [address] [place] [address] CT Scan Report Signed Patient: Kelsea Turcios MMR#: [id number] 58 : 9Acct:[id number] Age/Sex: 62 / FADM Date: 02/12/23 Loc: CT Room:Type: [facility] Attending Dr: Roxane Bills MD Copies to: Roxane Bills MD Ordering Provider: Roxane Bills MD Date of Service: 02/12/23 CT/CT guided bone marrow bx/aspir: MGUS ([id number]) CT/CT guided needle placement: . CT GUIDED [...] Mccurdy Jr., D.O.02/12/2023 11:44 AM Dictation Location: [place] [address] Transcribed By: [facility] 02/12/23 1144 Dictated By: Manish Mccurdy Jr, DO 02/12/23 1137 Signed By: <Electronically signed by Manish Mccurdy Jr, DO inOV> 02/12/23 1144 Roxane Bills MD IMG CT PROCEDURES Final Result documented in this encounter Visit Diagnoses Not on filedocumented in this encounter Care Teams Technical Fellow Relationship Specialty Start Date End Date Giovanni Moreno MD [address] [place] [address] PCP - General Family Medicine 09/18/22 documented as of this encounter
--- OUTSIDE RECORDS SUMMARY | 2024-10-17 08:20 | XMS_ITS | Encounter Summary ---
Author Organization [facility] Address [address] [place] [address] Care Team Providers Care Starch Mangle Tender Name Role Phone Giovanni Moreno MD Primary Care Provider [phone] Encounter Details Date Type Department Care Team ([facility] Contact Info) Description 01/29/2023 Abstract [facility] [address] [place] [phone] Svetlana Garcia DO [address] [place] [address] Social History Tobacco Use Types Packs/Day Years [...] Upcoming Encounters Date Type Department Care Team ([facility] Contact Info) Description 11/21/2024 11:30 AM EDT Office Visit [facility] [address] [place] [address] Jeannie Aguilar MD [address] [place] [address] 12/09/2024 10:30 AM EDT Office Visit [facility] [place] [facility] [address] [place] [address] Mack Pride DPM [address] [address] 03/07/2025 2:00 PM EST Office Visit [facility] [address] [place] [address] Svetlana Garcia DO [address] [facility] [place] [address] documented as of this encounter Visit Diagnoses Not on filedocumented in this encounter Care Teams Starch Mangle Tender Relationship Specialty Start Date End Date Giovanni Moreno MD [address] [facility] [place] [address] PCP - General Family Medicine 09/18/22 documented as of this encounter
--- OUTSIDE RECORDS SUMMARY | 2024-10-17 08:20 | XMS_ITS | Encounter Summary ---
Author Organization [facility] Address [address] [place] [address] Care Team Providers Care Pigs Feet Cleaner Name Role Phone Giovanni Moreno MD Primary Care Provider [phone] Encounter Details Date Type Department Care Team (Late Contact Info) Description 09/19/2024 External Result Encounter [facility]S External Department Unsolicited Roxane Bills MD [address] [place] [address] Social History Tobacco Use Types [...] Visit [facility] [address] [place] [address] Jeannie Aguilar MD [address] [place] [address] 12/09/2024 10:30 AM EDT Office Visit [facility] POD [address] [place] [address] Mack Pride DPM [address] [address] 03/07/2025 2:00 PM EST Office Visit [facility] [address] [place] [address] Radha Svetlana Alexys, DO [address] [place] [address] documented as of this encounter Procedures Procedure Name Priority Date/Time Associated Diagnosis Comments BIOPSY BONE MARROW 09/19/2024 11 :37 AM EDT documented in this encounter Results * Biopsy bone marrow (09/19/2024 11:37 AM EDT) 09/19/2024 11:3 7 AM EDT Impressions [facility] - 09/19/2024 11:[address]-guided bone marrow biopsy. Impression dictated by: Manish Mccurdy Jr., DJaneOJane 09/19/2024 11:38 AM Dictation Location: [place] [address] Transcribed By: [facility] 09/19/24 1138 Dictated By: Manish Mccurdy Jr, DO 09/19/24 1137 Signed By: <Electronically signed by Manish Mccurdy Jr, DO in OV> 09/19/24 1138 Narrative [facility] - 09/19/2024 11:41 AM EDT [facility] Main [address] [address] [address] Scan Report Signed Patient: Kelsea Turcios MR#: [id number] 58 : 1960 Acct:[id number] Age/Sex: 63 / F ADM Date: 09/19/24 Loc: CT Room: Type: [facility] Attending Dr: Roxane Bills MD Copies to: [...] Note Manish Mccurdy Jr., DO - 09/19/2024 [facility] Main [place] [address] [place] [address] CT Scan Report Signed Patient: Kelsea Turcios MMR#: [id number] 58 : 9Acct:[id number] Age/Sex: 63 / FADM Date: 09/19/24 Loc: CT Room:Type: [facility] Attending Dr: Roxane Bills MD Copies to: [...] Jr., D.OJane 09/19/2024 11:38 AM Dictation Location: [place] [address] Transcribed By: [facility] 09/19/24 1138 Dictated By: Manish Mccurdy Jr, DO 09/19/24 1137 Signed By: <Electronically signed by Manish Mccurdy Jr, DO inOV> 09/19/24 1138 us Roxane Bills MD IN CLINIC/BEDSIDE ORDERABLES Fin al Result Performing Organization Address [facility] Co de Phone Number [facility] [address] [place] [address], documented in this encounter Visit Diagnoses Not on filedocumented in this encounter Care Teams Pigs Feet Cleaner Relationship Specialty Start Date End Date Giovanni Moreno MD [address] [place] [address] PCP - General Family Medicine 09/18/22 documented as of this encounter
--- OUTSIDE RECORDS SUMMARY | 2024-10-17 08:20 | XMS_ITS | Clinical Summary ---
Author Organization [facility] Address [address] [place] [address] Phone Care Team Providers Care Arc Welder Name Role Phone Unavailable Primary Care Provider Unavailabl e Encounters Date Type Department Care Team Description 10/06/2024 Community Orders Link [facility] [address] [place] [address] Roxane Bills MD History of multiple myeloma (Primary Dx) from Last 3 Months Social History Tobacco Use Types Packs/Day Years [...] alyssa series) 10/09/1959 Hepatitis C Screening 1976 DTaP/Tdap/Td Vaccines (1 - Tdap) 1980 Mammogram 1998 Pneumococcal Vaccine (1 of 1 - PCV) 2008 Zoster Vaccines (1 of 2) 2008 COVID-19 Vaccine ( - 2023-2 5 season) 2023 Influenza Vaccine (#1) 2024 RSV High Risk: (Elderly (60+ ) or Population) (1 - 1-dose 75+ series) 2033 HIB Vaccines Aged Out No longer eligi ble based on patient's age to complete this topic HPV Vaccines (No Doses Required) Completed Hepatitis A Vaccines Aged Out No long [...]
--- OUTSIDE RECORDS SUMMARY | 2024-10-17 08:20 | XMS_ITS | Encounter Summary ---
Author Organization [facility] Address [address] [place] [address] Care Team Providers Care Clamp Remover Name Role Phone Giovanni Moreno MD Primary Care Provider [phone] Reason for Visit * Reason Comments Med Refill Encounter Details Date Type Department Care Team ([facility] Contact Info) Description 09/25/2022 Refill [facility] POD [address] [place] [address] Mack Pride DPM [address] [address] Social History Tobacco Use Types Packs/Day Years [...] Visit [facility] [address] [place] [address] Jeannie Aguilar MD [address] [place] [address] 12/09/2024 10:30 AM EDT Office Visit [facility] SC POD [address] [place] [address] Mack Pride DPM [address] [address] 03/07/2025 2:00 PM EST Office Visit [facility] P[facility]M [address] [place] [address] Svetlana Garcia DO [address] [facility] [place] [address] documented as of this encounter Visit Diagnoses Not on filedocumented in this encounter Care Teams Clamp Remover Relationship Specialty Start Date End Date Giovanni Moreno MD [address] [facility] [place] [address] PCP - General Family Medicine 09/18/22 documented as of this encounter
--- OUTSIDE RECORDS SUMMARY | 2024-10-17 08:20 | XMS_ITS | Encounter Summary ---
Author Organization [facility] Address [address] [place] [address] Care Team Providers Care Position Classification Manager Name Role Phone Giovanni Moreno MD Primary Care Provider [phone] Reason for Visit * Reason Comments Med Refill Encounter Details Date Type Department Care Team ([facility] Contact Info) Description 01/24/2023 Refill [facility] SC POD [address] [place] [address] Mack Pride DPM [address] [address] Diabetes mellitus due to underlying [...] Upcoming Encounters Date Type Department Care Team ([facility] Contact Info) Description 11/21/2024 11:30 AM EDT Office Visit [facility] [address] [place] [address] Jeannie Aguilar MD [address] [place] [address] 12/09/2024 10:30 AM EDT Office Visit [facility] SC POD [address] [place] [address] Mack Pride DPM [address] [address] 03/07/2025 2:00 PM EST Office Visit [facility] [address] [facility] [facility] [phone] Svetlana Garcia DO [address] [place] [address] documented as of this encounter Visit Diagnoses Diagnosis Diabetes mellitus due to underlying condition with diabetic polyneuropathy, with long-term current use of insulin (HCC)- Primary documented in this encounter Care Teams Position Classification Manager Relationship Specialty Start Date End Date Giovanni Moreno MD [address] [place] [address] PCP - General Family Medicine 09/18/22 documented as of this encounter
--- OUTSIDE RECORDS SUMMARY | 2024-10-17 08:20 | XMS_ITS | Encounter Summary ---
Author Organization [facility] Address [address] [place] [address] Care Team Providers Care Telephone Instrument Supervisor Name Role Phone Giovanni Moreno MD Primary Care Provider + [phone] Reason for Visit * Reason Comments Med Refill Encounter Details Date Type Department Care Team ([facility] Contact Info) Description 12/05/2022 Refill [facility] [address] [place] [phone] Svetlana Garcia, DO [address] [place] [address] Chronic obstructive pulmonary disease, unspecified (HCC) Social [...] Encounters Date Type Department Care Team ([facility] Contact Info) Description 11/21/2024 11:30 AM EDT Office Visit [facility] [address] [place] [address] Jeannie Aguilar MD [address] [place] [address] 12/09/2024 10:30 AM EDT Office Visit [facility] POD [address] [place] [address] Mack Pride DPM [address] [facility] [address] [place] [address] 03/07/2025 2:00 PM EST Office Visit [facility] P[facility] [address] [place] [address] Svetlana Garcia, DO [address] [facility] [place] [address] documented as of this encounter Visit Diagnoses Diagnosis Chronic obstructive pulmonary disease, unspecified (HCC) documented in this encounter Care Teams Telephone Instrument Supervisor Relationship Specialty Start Date End Date Giovanni Moreno MD [address] [place] [address] PCP - General Family Medicine 09/18/22 documented as of this encounter
--- OUTSIDE RECORDS SUMMARY | 2024-10-17 08:20 | XMS_ITS | Encounter Summary ---
Author Organization [facility] Address [address] [place] [address] Care Team Providers Care Analytical Tech Name Role Phone Giovanni Moreno MD Primary Care Provider [phone] Encounter Details Date Type Department Care Team ([facility] Contact Info) Description 2022 Abstract [facility] [address] [place] [address] Svetlana Garcia DO [address] [place] [address] Social History Tobacco Use Types Packs/Day Years [...] Upcoming Encounters Date Type Department Care Team ([facility] Contact Info) Description 11/21/2024 11:30 AM EDT Office Visit [facility] [address] [place] [address] Jeannie Aguilar MD [address] [place] [address] 12/09/2024 10:30 AM EDT Office Visit [facility] P[facility] [address] [place] [address] Mack Pride DPM [address] [address] 03/07/2025 2:00 PM EST Office Visit [facility] [address] [place] [address] Svetlana Garcia DO 2800 [facility] [place] [address] documented as of this encounter Visit Diagnoses Not on filedocumented in this encounter Care Teams Analytical Tech Relationship Specialty Start Date End Date Giovanni Moreno MD [address] [facility] [place] [address] PCP - General Family Medicine 09/18/22 documented as of this encounter
--- OUTSIDE RECORDS SUMMARY | 2024-10-17 08:20 | XMS_ITS | Encounter Summary ---
Author Organization [facility] Address [address] [place] [address] Phone Care Team Providers Care Table Hand Name Role Phone Unavailable Primary Care Provider Unavailabl e Encounter Details Date Type Department Care Team (Late st Contact Info) Description 10/06/2024 Community Orders Link [facility] [address] [place] [address] Roxane Bills MD [address] [place] [address] History of multiple myeloma (Primary Dx) Social History Tobacco Use Types Packs/Day Years Used Date Smoking Tobacco: Never Assessed Comments Unknown Sex and Gender Information Value Date Recorded Sex Assigned at Not on file Legal Sex Female 6:30 PM EST Gender Identity Not on file Sexual Orientation Not on file documented as of this encounter Plan of Treatment Not on file documented as of this encounter Visit Diagnoses Diagnosis History of multiple myeloma- Primary Personal history of other lymphatic and hematopoietic neoplasm documented in this encounter
--- OUTSIDE RECORDS SUMMARY | 2024-10-17 08:20 | XMS_ITS | Encounter Summary ---
Author Organization [facility] Address [address] [place] [address] Care Team Providers Care Ward Clerk Name Role Phone Giovanni Moreno MD Primary Care Provider [phone] Encounter Details Date Type Department Care Team (Late Contact Info) Description 09/18/2022 Abstract [facility] PODIATRY 112 [facility] 120 [place] [address] Mack Pride DPM 3006 [facility] 5 [place] [address] Social History Tobacco Use Types [...] Visit [facility] [address] [place] [address] Jeannie Aguilar MD [address] [place] [address] 12/09/2024 10:30 AM EDT Office Visit [facility] [address] [place] [address] Mack Pride DPM [address] [address] [place] [address] 03/07/2025 2:00 PM EST Office Visit [facility] [address] [place] [address] Svetlana Garcia DO [address] [facility] [address] [facility] [place] [address] documented as of this encounter Visit Diagnoses Not on filedocumented in this encounter Care Teams Ward Clerk Relationship Specialty Start Date End Date Giovanni Moreno MD [address] [place] [address] PCP - General Family Medicine 09/18/22 documented as of this encounter
[2024-10-17 08:35] VITALS: BP 139/73; PULSE 81; TEMP 36.6; O2SAT 93
[2024-10-17 09:02] VITALS: BP 144/63; PULSE 88; O2SAT 94
[2024-10-17 09:03] VITALS: BP 156/66; PULSE 88; O2SAT 94
--- NOTE | 2024-10-17 09:03 | W.PM.PROCNOT ---
Date of procedure: 10/17/24 Pre-op diagnosis: Pain due to bilateral sacroiliitis Post-op diagnosis: same as pre-op Procedure: Procedure: Bilateral sacroiliac joint injection Medications: Bupivacaine 0.25% 3cc, depomedrol 40mg x2 After informed consent was obtained, the patient was brought to the medical procedure unit and placed in the prone position, when a timeout was completed verifying correct patient, procedure, site, positioning, implant, and/or special equipment.? The skin overlying the area was prepped and draped in standard sterile fashion using alcohol.? A 25-gauge needle was inserted towards the left sacroiliac joint under direct fluoroscopic imaging.? Needle tip was advanced until the joint was encountered.? We instilled a total of 2 mL of solution.? The same procedure was then completed on the right side.? Postoperatively needles were removed.? The patient tolerated the procedure well without complication.? The patient reported reduction in pain symptoms postoperatively. Anesthesia: Local Surgeon: Emma Ramos Pathology: none sent Condition: stable Disposition: no change
[2024-10-17] MEDS: BUPIVACAINE HCL 0.25% PF 25 MG/10 ML VIAL 4 ML INJ (09:04)
[2024-10-17] MEDS: IOHEXOL 240 MG/ML - 10 ML VIAL 12 MG INJ (09:05)
[2024-10-17] MEDS: LIDOCAINE HCL 2% 400 MG/20 ML MDV INJ (09:05)
[2024-10-17] MEDS: METHYLPREDNISOLONE ACETATE 40 MG/ML VIAL 80 MG INJ (09:05)
== END 2024-10-17 09:07 | disposition home or self-care (01) ==
LOC: SURGOUT 08:16
PROVIDERS: Visit Provider Anesthesiology
DX: M46.1 Sacroiliitis, not elsewhere classified (principal); E11.8 Type 2 diabetes mellitus with unspecified complications; Z79.85 Long-term (current) use of injectable non-insulin antidiabetic drugs
CPT/HCPCS: 36415; 64451; 82948; J0665; J1010; Q9966

== ENCOUNTER 2024-10-27 07:35 | Outpatient (OUT) | payer MEDICARE, MEDICAID, SELFPAY ==
--- OUTSIDE RECORDS SUMMARY | 2021-06-20 06:46 | XMS_ITS | Continuity of Care Document ---
Author Organization [facility] Address [address] [place] [address] Phone Care Team Providers Care Human Resources Leader Name Role Phone Josafat Motley Unavailable Unavailable [...] Diagnoses Date Provider Providers Copied on Encounter [facility], [address] [place] [address], [place], [id number] , [place] tel: [phone] [facility] No Information 2 Visci DO Josafat. [address] [place] [address], [place], [id number] , [place]. tel: [phone] OFFICE/OUTPA TIENT VISIT, [facility], [address], [place], [id number] , [place] tel: [phone] [facility] Med Refills (chief complaint) Body mass index [BMI] 45.0-49.9, adultCOPD mixed typeEssential hypertensionLocalize d swelling, mass and lump, right lower limb 1 [place] DO Max. [address], [place], [id number] , [place]. tel: [phone] [facility], [address] [place] [address], [id number] , [place] tel: [phone] [facility] No Information 1 [place] DO Max. [address], [place], [id number] , [place]. tel: [phone] [facility], [address], [place], [id number] , [place] tel: [phone] [facility] No Information 1 [place] DO Max. [address], [place], [id number] , [place]. tel: [phone] [facility], [address] [place] [address], [id number] , [place] tel: [phone] [facility] No Information 1 [place] DO Max. [address] [place] [address], [id number] , [place]. tel: [phone] OFFICE/OUTPA TIENT VISIT, [facility], [address], [place], [id number] , [place] tel: [phone] [facility] Medication (chief complaint)N europathy (chief complaint) NeuropathyBody mass index [BMI]40.0-44.9, adult Oct- 1 [facility]. [address], [place], [id number] , [place]. tel: [phone] OFFICE/OUTPA TIENT VISIT, [facility], [address], [place], [id number] , [place] tel: [phone] [facility] check up (chief complaint) Body mass index [BMI]40.0-44.9, adultChronic low back pain, unspecified back pain laterality, unspecified whether sciatica presentLocalized swelling, mass and lump, right lower limbRash 1 [facility]. [address], [place], [id number] , [place]. tel: [phone] OFFICE/OUTPA TIENT VISIT, [facility], [address] [place] [address], [id number] , [place] tel: [phone] [facility] check up (chief complaint) Body mass index [BMI]40.0-44.9, adultPhlebitisType 2 diabetes mellitus with diabetic neuropathy, with long-term current use of insulinRash 1 [facility]. [address] [place] [address], [place], [id number] , [place]. tel: [phone] [facility], [address] [place] [address], [id number] , [place] tel: [phone] [facility] No Information 1 [facility] DO Li. [address] [place] [address], [id number] , [place]. tel: [phone] OFFICE/OUTPA TIENT VISIT, [facility], [address] [place] [address], [id number] , [place] tel: [phone] [facility] check up (chief complaint)d iabetes (chief complaint) Body mass index [BMI] 45.0-49.9, adultRashType 2 diabetes mellitus with diabetic neuropathy, with long-term current use of insulinWound of right lower extremity, subsequent encounter 1 [facility]. [address], [place], [id number] , [place]. tel:[phone] [facility], [address] [place] [address], [id number] , [place] tel:[phone] [facility] No Information 1 [facility] Max. [address] [place] [address], [id number] , [place]. tel:[phone] OFFICE/OUTPA TIENT VISIT, [facility], [address] [place] [address], [id number] , [place] tel:[phone] [facility] f/u pain/lab draw (chief complaint)R ramiro (chief complaint) Serum potassium elevatedBody mass index [BMI] 45.0-49.9, adultRash 1 [facility]. [address] [place] [address], [id number] , [place]. tel:[phone] OFFICE/OUTPA TIENT VISIT, [facility], [address] [place] [address], [id number] , [place] tel:+ [phone] [facility] med refill (chief complaint)d iabetes (chief complaint) Type 2 diabetes mellitus with diabetic neuropathy, with long-term current use of insulinNeuropathySer um potassium elevatedWound of right lower extremity, subsequent encounter 1 [facility]. [address] [place] [address], [id number] , [place]. tel:+ [phone] OFFICE/OUTPA TIENT VISIT, [facility], [address] [place] [address], [id number] , [place] tel:[phone] [facility] ER follow up (chief complaint) Body mass index [BMI]40.0-44.9, adultType 2 diabetes mellitus with diabetic neuropathy, with long-term current use of insulinPhlebitis 1 [facility] Max. [address] [place] [address] [place], [id number] , [place]. tel: [phone] OFFICE/OUTPA TIENT VISIT, [facility], [address] [place] [address], [id number] , [place] tel: [phone] [facility] f/u right leg (chief complaint)M usculoskele reinaldo pain (chief complaint) Essential hypertensionType 2 diabetes mellitus with diabetic neuropathy, with long-term current use of insulinMixed hyperlipidemiaLocali zed swelling, mass and lump, right lower limb 1 [place] DO Max. [address] [place] [address], [id number] , [place]. tel: [phone] OFFICE/OUTPA TIENT VISIT, [facility], [address] [place] [address], [id number] , [place] tel: [phone] [facility] f/u leg pain (chief complaint)M usculoskele reinaldo pain (chief complaint) Body mass index [BMI] 45.0-49.9, adultLocalized swelling, mass and lump, right lower limb 1 [place] DO Max. [address] [place] [address], [id number] , [place]. tel: [phone] OFFICE/OUTPA TIENT VISIT, [facility], [address] [place] [address], [id number] , [place] tel: [phone] [facility] est care (chief complaint)M usculoskele reinaldo pain (chief complaint)d iabetes (chief complaint) Posterior right knee painEssential hypertensionCOPD mixed typeMixed hyperlipidemiaInsomn ia, unspecified typeNeuropathyType 2 diabetes mellitus with diabetic neuropathy, with long-term current use of insulinLong term (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Hypothyroidis m, unspecified typeChronic low back pain, unspecified back pain laterality, unspecified whether sciatica presentOther chronic pain 1 [place] DO Max. [address], [place], [id number] , [place]. tel: [phone] [facility], [address], [place], [id number] , [place] tel: [phone] [facility] Dental examination 4 John DMD July. [address] [place] [address], [place], [id number] , [place]. tel: [phone] OFFICE/OUTPA TIENT VISIT, EST [facility], [address], [place], [id number] , [place] tel: [phone] [facility] Influenza Vaccine 3 D[place] DO Josafat. [address] [place] [address], [place], [id number] , [place]. tel: [phone] Family History Family Member Type Diagnosis Age At Onset No Information Immunizations Vaccine Date Status Comments Pneumo (2 yrs or older)(PPV) administered Source: New Immunization Record Flu (split) (3 yrs or older) administered Source: New Immunization Record Payers Payer name Insurance type Covered libertarian ID Authoriza tiflakito(s) Medicaid [facility] [id number] Social History Type Description Quantity Date Captured Comments Alcohol Use Details Unknown Caffeine Use Details Unknown Tobacco Use Status No Information Smoking Status No Information Sex Female Sexual Orientation Straight or heterosexual Gender Identity Female Chief Complaint And Reason For Visit No Information Reason For Referral Reason For Referral No Information Plan Of Treatment Date Type Action Status Goal Urine microalbumin. Due on due Goal Dental exam. Due on 022 due Goal Hemoglobin A1C. Due on due Goal Pneumococcal vaccine due Goal Foot exam. Due on due Goal Dilated eye exam. Due on Jun due Goal Colonoscopy. Due on due Goal Tdap. Due on due Goal Depression screening. Due on due Goal Influenza Vaccine. Due on due Goal Mammogram. Due on due Goal Zoster vaccine (). Due on due Goal FOBT. Due on due Goal ECG. Due on due Goal Urinalysis. Due on due Goal Diabetes screening. Due on due Goal Dilated eye exam. Due on Feb due Goal Colonoscopy. Due on due Goal Mammogram. Due on due Goal Diabetes screening. Due on due Goal Urinalysis. Due on due Goal ECG. Due on due Goal Urine microalbumin. Due on due Goal Dental exam. Due on due Goal Hemoglobin A1C. Due on due Goal Pneumococcal vaccine due Goal Foot exam. Due on due Goal FOBT. Due on due Goal Zoster vaccine (). Due on due Goal Tdap. Due on due Goal Depression screening. Due on due Goal Influenza Vaccine. Due on due Goal Dietary management education , guidance, and counseling completed Goal ECG. Due on due Goal Urinalysis. Due on due Goal Pneumococcal vaccine due Goal Hemoglobin A1C. Due on due Goal Dental exam. Due on due Goal Dilated eye exam. Due on Jan due Goal Foot exam. Due on due Goal Urine microalbumin. Due on O due Goal Depression screening. Due on due Goal Zoster vaccine (). Due on due Goal FOBT. Due on due Goal Tdap. Due on due Goal Colonoscopy. Due on due Goal Mammogram. Due on due Goal Influenza Vaccine. Due on due Goal Diabetes screening. Due on due Goal Pneumococcal vaccine due Goal Depression screening. Due on due Goal Tdap. Due on due Goal Colonoscopy. Due on due Goal FOBT. Due on due Goal Influenza Vaccine. Due on due Goal Mammogram. Due on due Goal Zoster vaccine (). Due on due Goal Urinalysis. Due on due Goal Diabetes screening. Due on due Goal ECG. Due on due Goal Dilated eye exam. Due on Jan due Goal Dental exam. Due on due Goal Urine microalbumin. Due on due Goal Foot exam. Due on due Goal Hemoglobin A1C. Due on due Goal Hemoglobin A1C. Due on due Goal Influenza Vaccine. Due on due Goal FOBT. Due on due Goal Mammogram. Due on due Goal Tdap. Due on due Goal Colonoscopy. Due on due Goal Depression screening. Due on due Goal Zoster vaccine (). Due on due Goal Urinalysis. Due on due Goal Diabetes screening. Due on due Goal ECG. Due on due Goal Dental exam. Due on due Goal Pneumococcal vaccine due Goal Dilated eye exam. Due on Jan due Goal Foot exam. Due on due Goal Urine microalbumin. Due on due Goal Pneumococcal vaccine due Goal Dilated eye exam. Due on Jan due Goal Urine microalbumin. Due on due Goal Hemoglobin A1C. Due on due Goal Foot exam. Due on due Goal Dental exam. Due on due Goal Influenza Vaccine. Due on due Goal Tdap. Due on due Goal Mammogram. Due on due Goal Zoster vaccine (). Due on due Goal Colonoscopy. Due on due Goal Depression screening. Due on due Goal FOBT. Due on due Goal Urinalysis. Due on due Goal Diabetes screening. Due on due Goal ECG. Due on due Goal Dietary management education , guidance, and counseling completed Goal Mammogram. Due on due Goal Diabetes screening. Due on due Goal Urinalysis. Due on due Goal ECG. Due on due Goal Dilated eye exam. Due on Dec due Goal Urine microalbumin. Due on due Goal Dental exam. Due on due Goal Pneumococcal vaccine due Goal Foot exam. Due on due Goal Hemoglobin A1C. Due on due Goal FOBT. Due on due Goal Tdap. Due on due Goal Depression screening. Due on due Goal Zoster vaccine (). Due on due Goal Influenza Vaccine. Due on due Goal Colonoscopy. Due on due Goal Dietary management education , guidance, and counseling completed Goal Hemoglobin A1C. Due on due Goal Dental exam. Due on due Goal Dilated eye exam. Due on Nov due Goal Pneumococcal vaccine due Goal Foot exam. Due on due Goal Urine microalbumin. Due on A due Goal Mammogram. Due on due Goal Zoster vaccine (). Due on due Goal Depression screening. Due on due Goal Influenza Vaccine. Due on due Goal Tdap. Due on due Goal Colonoscopy. Due on due Goal FOBT. Due on due Goal ECG. Due on due Goal Diabetes screening. Due on A due Goal Urinalysis. Due on due Goal Dietary management education , guidance, and counseling completed Goal FOBT. Due on due Goal Zoster vaccine (). Due on due Goal Influenza Vaccine. Due on due Goal Hemoglobin A1C. Due on due Goal Dilated eye exam. Due on Nov due Goal Foot exam. Due on due Goal Dental exam. Due on due Goal Pneumococcal vaccine due Goal Urine microalbumin. Due on A due Goal Urinalysis. Due on due Goal Diabetes screening. Due on A due Goal ECG. Due [...] Urine microalbumin. Due on A due Goal Dental exam. Due on due Goal Hemoglobin A1C. Due on due Goal Pneumococcal vaccine due Goal Dilated eye exam. Due on Nov due Goal Foot exam. Due on due Goal Depression screening. Due on due Goal FOBT. Due on due Goal Urinalysis. Due on due Goal ECG. Due on due Goal Diabetes screening. Due on A due Goal Dietary management education , guidance, and counseling completed Goal FOBT. Due on due Goal Colonoscopy. Due on due Goal Dental exam. Due on due Goal Foot exam. Due on due Goal Urine microalbumin. Due on due Goal Dilated eye exam. Due on Oct due Goal Pneumococcal vaccine due Goal Hemoglobin A1C. Due on due Goal Tdap. Due on due Goal Depression screening. Due on due Goal Influenza Vaccine. Due on due Goal Zoster vaccine (). Due on due Goal Mammogram. Due on due Goal Diabetes screening. Due on due Goal Urinalysis. Due on due Goal ECG. Due on due Goal Foot exam. Due on due Goal Dilated eye exam. Due on Oct due Goal Dental exam. Due on due Goal Depression screening. [...] education , guidance, and counseling completed Goal Diabetes screening. Due on due Goal Urinalysis. Due on due Goal Depression screening. Due on due Goal FOBT. Due on due Goal Mammogram. Due on due Goal Tdap. Due on due Goal ECG. Due on due Goal Urine microalbumin. Due on due Goal Zoster vaccine (). Due on due Goal Colonoscopy. Due on due Goal Influenza Vaccine. Due on due Goal Pneumococcal vaccine due Goal Dilated eye exam. Due on Oct due Goal Foot exam. Due on due Goal Dental exam. Due on due Goal Hemoglobin A1C. Due on due Goal Depression screening. Due on due Goal Colonoscopy. Due on due Goal Mammogram. Due on due Goal Tdap. Due on due Goal ECG. Due on due Goal Urinalysis. Due on due Goal Diabetes screening. Due on due Goal Dilated eye exam. Due on Sep due Goal Urine microalbumin. Due on due Goal Dental exam. Due on due Goal Influenza Vaccine. Due on due Goal Zoster vaccine (). Due on due Goal FOBT. Due on due Goal Pneumococcal vaccine due Goal Foot exam. Due on due Goal Dietary management education , guidance, and counseling completed Goal Zoster vaccine (). Due on due Goal Colonoscopy. Due on due Goal Diabetes screening. Due on due Goal ECG. Due on due Goal Urinalysis. Due on due Goal Foot exam. Due on due Goal Urine microalbumin. Due on due Goal Dilated eye exam. Due on Sep due Goal Pneumococcal vaccine due Goal Dental exam. Due on due Goal Mammogram. Due on due Goal Tdap. Due on due Goal Depression screening. Due on due Goal FOBT. Due on due Goal Influenza Vaccine. Due on due Goal Depression screening. Due on due Goal Tdap. Due on due Goal Mammogram. Due on due Goal Colonoscopy. Due on due Goal ECG. Due on due Goal Urinalysis. Due on due Goal Diabetes screening. Due on due Goal Foot exam. Due on due Goal Dilated eye exam. Due on August due Goal Zoster vaccine (). Due on due Goal FOBT. Due on due Goal Influenza Vaccine. Due on due Goal Lipid panel. Due on due Goal Hemoglobin A1C. Due on due Goal Urine microalbumin. Due on due Goal Pneumococcal vaccine due Goal Dental exam. Due on due Goal Dietary management education , guidance, and counseling completed Goal Tobacco cessation counseling completed Goal Dental exam. Due on due Goal Foot exam. Due on due Goal Pneumococcal vaccine due Goal Dilated eye exam. Due on August due Goal Hemoglobin A1C. Due on due Goal Urine microalbumin. Due on due Goal Lipid panel. Due on due Goal Diabetes screening. Due on due Goal Urinalysis. Due on due Goal ECG. Due on due Goal FOBT. Due on due Goal Tdap. Due on due Goal Influenza Vaccine. Due on due Goal Zoster vaccine (). Due on due Goal Mammogram. Due on due Goal Colonoscopy. Due on due Goal Depression screening. Due on due Goal Pneumococcal Vaccine. Due on due Goal Influenza Vaccine. Due on due Referral Ordered: Vascular Surgery (related to Phlebitis) ordered Referral Ordered: Duplex Scan LE Unilat, Vascular ordered Referral Ordered: Referrals: Vascular Surgery ordered Referral Ordered: Duplex Scan BLE, Vascular ordered Referral Ordered: UNILATERAL NON-INVASIVE LOWER EXTREMITY VENOUS STUDY Right ordered Referral Ordered: UNILATERAL NON-INVASIVE LOWER EXTREMITY VENOUS STUDY ordered Referral Ordered: X-Ray Exam Of Knee 4 Or [...] Gabapentin 02/[address] [place] & [place] 01/16TGaroldo GALDAMEZ ,above was reviewed and agreed with [facility] [...] painful at the end of every day [facility] diabetes The problem is g etting worse. [...] refill. Pt states she needs refills on [place] and Vitamin D. Pt states that she [...] Álvarez ,above was reviewed and agreed with [facility] Musculoskeletal pain It occurs c onstantly and [...] she had her U/S orders performed at [facility] last Thursday. Reports are in pt's chart. Pt states that nothing is changed with her leg/pain. No worsening symptoms, nothing improved. Pt states she will need a refill on her [place] by Thursday. TAWANA Adkins f/u leg pain [...] Dominance: right. est care Pt here to [facility]. Pt c/o R LE [...] No Information Instructions Date Instruction Additional Infor shacricket Giving encouragement to exercise Related to Body [...] Related to Body mass index [BMI]40.0-44.9, adult May-24-2021 Giving encouragement to exercise Related to Body mass index [BMI] 45.0-49.9, adult Dietary management e ducation, guidance, and counseling Related to Body mass index [BMI] 45.0-49.9, adult Assessments Type Assessment Date No Information Patient Care Teams Name Effective Dates (start - stop) Status Members No Information
--- OUTSIDE RECORDS SUMMARY | 2024-10-20 08:10 | XMS_ITS | Encounter Summary ---
Author Organization [facility] Address [address] [place] [address] Phone Care Team Providers Care Scarfer Name Role Phone Unavailable Primary Care Provider Unavailabl e Encounter Details Date Type Department Care Team (Late st Contact Info) Description 10/20/2024 8:10 AM EDT Tumor Board Conference [facility] [address] [place] [address] Social History Tobacco Use Types Packs/Day Years Used Date Smoking Tobacco: Never Assessed Comments Unknown Sex and Gender Information Value Date Recorded Sex Assigned at Not on file Legal Sex Female 6:30 PM EST Gender Identity Not on file Sexual Orientation Not on file documented as of this encounter Miscellaneous Notes * Tumor Board Note - Kristen Galaviz - 10/20/2024 8:10 AM EDT TUMOR BOARD DISCUSSION SUMMARY PRESENTER: Dr. Roxane Bills DIAGNOSIS: smoldering myeloma SUMMARY/PRESENTATION: Kelsea Turcios is a 64 y.o. 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 More recently progressive neuropathy and bone marrow with 10-15% plasma cells. History: Previous treatment: Information reviewed: Treatment Plan Review Pathology: Report discussed RECOMMENDATIONS: Treat for symptomatic myeloma with gavino based regimen and based on response discuss transplant, consider sending anti Mag antibody. Disclaimer [facility] tumor board recommendations represent the consensus opinion of physicians present at a weekly patient care conference. The treating [facility] physician is not always present, and many of the physiciansformulating the recommendation have not personally seen or examined the patient under discussion. It is understood that the treating [facility] physician considers the expertise of the Tumor Board Recommendation in formulating his/her plan for the patient. However, in many situations, based on individualized patient considerations, a different plan is determined by the treating physician to be the optimal medical management. Scribe Attestation By signing my name below, Kristen Arrieta Scribe attest that this documentation has been prepared under the direction and in the presence of MALIGNANT HEME TUMOR BOARD. documented in this encounter Plan of Treatment Not on file documented as of this encounter Visit Diagnoses Not on filedocumented in this encounter
--- OUTSIDE RECORDS SUMMARY | 2024-10-27 07:38 | XMS_ITS | Encounter Summary ---
Author Organization [facility] Address [address] [place] [address] Care Team Providers Care Dry Talc Racker Name Role Phone Giovanni Moreno MD Primary Care Provider + [phone] Reason for Visit * Reason Onset Date Comments Med Refill 10/21/2024 Encounter Details Date Type Department Care Team ([facility] Contact Info) Description 10/21/2024 Refill [facility] [address] [place] [address] Isela Trammell LPN Type 2 diabetes mellitus [...] Telephone Encounter - Isela Trammell LPN - 10/21/2024 12:35 PM EDT MEDICATION SENT TO PHARMACY. documented in this encounter Plan of Treatment Upcoming Encounters Date Type Department Care Team ([facility] Contact Info) Description 11/21/2024 11:30 AM EDT Office Visit [facility] [address] [place] [address] Jeannie Aguilar MD [address] [place] [address] 12/09/2024 10:30 AM EDT Office Visit [facility]OD [address] [place] [address] Mack Pride DPM 3006 [facility] [address] [place] [address] 03/07/2025 2:00 PM EST Office Visit [facility] SH PULM [address] [place] [address] Svetlana Garcia DO [address] [facility] [place] [address] documented as of this encounter Visit Diagnoses Diagnosis Type 2 diabetes mellitus with hyperglycemia, with long-term current use of insulin (HCC) documented in this encounter Care Teams Dry Talc Racker Relationship Specialty Start Date End Date Giovanni Moreno MD 25[address] [facility] [place] [address] PCP - General Family Medicine 09/18/22 documented as of this encounter
--- OUTSIDE RECORDS SUMMARY | 2024-10-27 07:38 | XMS_ITS | Encounter Summary ---
Author Organization [facility] Address [address] [place] [address] Care Team Providers Care Sand Cutting Machine Operator Name Role Phone Giovanni Moreno MD Primary Care Provider + [phone] Reason for Visit * Reason Comments Med Refill Encounter Details Date Type Department Care Team ([facility] Contact Info) Description 12/05/2022 Refill [facility] [address] [place] [address] Svetlana Garcia, DO [address] [place] [address] Chronic obstructive pulmonary disease, unspecified (HCC) Social [...] Upcoming Encounters Date Type Department Care Team ([facility] Contact Info) Description 11/21/2024 11:30 AM EDT Office Visit [facility] [address] [place] [address] Jeannie Aguilar MD [address] [place] [address] 12/09/2024 10:30 AM EDT Office Visit [facility] SC POD [address] [place] [address] Mack Pride DPM 3[address] [facility] [address] [place] [address] 03/07/2025 2:00 PM EST Office Visit [facility] [address] [place] [place] [address] Svetlana Garcia, DO [address] [facility] [place] [address] documented as of this encounter Visit Diagnoses Diagnosis Chronic obstructive pulmonary disease, unspecified (HCC) documented in this encounter Care Teams Sand Cutting Machine Operator Relationship Specialty Start Date End Date Giovanni Moreno MD [address] [place] [address] PCP - General Family Medicine 09/18/22 documented as of this encounter
--- OUTSIDE RECORDS SUMMARY | 2024-10-27 07:38 | XMS_ITS | Encounter Summary ---
Author Organization [facility] Address [address] [place] [address] Care Team Providers Care Window Machine Operator Name Role Phone Giovanni Moreno MD Primary Care Provider [phone] Reason for Visit * Reason Comments Med Refill Encounter Details Date Type Department Care Team ([facility] Contact Info) Description 10/18/2024 Refill [facility] [address] [place] [address] Jeannie Aguilar MD [address] [place] [address] Type 2 diabetes mellitus with [...] Telephone Encounter - Isela Trammell LPN - 10/19/2024 11:53 AM EDT MEDICATION SENT TO PHARMACY. documented in this encounter Plan of Treatment Upcoming Encounters Date Type Department Care Team ([facility] Contact Info) Description 11/21/2024 11:30 AM EDT Office Visit [facility] [address] [place] [address] Jeannie Aguilar MD [address] [place] [address] 12/09/2024 10:30 AM EDT Office Visit [facility] SC POD [address] [place] [address] Mack Pride DPM 3006 [facility] [address] [place] [address] 03/07/2025 2:00 PM EST Office Visit [facility] [address] [facility] [place] [address] Svetlana Garcia, DO [address] [facility] [place] [address] documented as of this encounter Visit Diagnoses Diagnosis Type 2 diabetes mellitus with hyperglycemia, with long-term current use of insulin (HCC) documented in this encounter Care Teams Window Machine Operator Relationship Specialty Start Date End Date Giovanni Moreno MD [address] [place] [address] PCP - General Family Medicine 09/18/22 documented as of this encounter
--- OUTSIDE RECORDS SUMMARY | 2024-10-27 07:38 | XMS_ITS | Encounter Summary ---
Author Organization [facility] Address [address] [place] [address] Care Team Providers Care Comb Fixer Name Role Phone Giovanni Moreno MD Primary Care Provider [phone] Encounter Details Date Type Department Care Team (Late Contact Info) Description 02/02/2024 External Result Encounter [facility] External Department Unsolicited Roxane Bills MD [address] [place] [address] Social History Tobacco Use Types [...] Visit [facility] [address] [place] [address] Jeannie Aguilar MD [address] [place] [address] 12/09/2024 10:30 AM EDT Office Visit [facility] SC POD [address] [place] [address] Mack Pride DPM [address] [address] 03/07/2025 2:00 PM EST Office Visit [facility]UL[facility] [address] [place] [address] Radha Svetlana Alexys, DO [address] [place] [address] documented as of this encounter Procedures Procedure [...] Domenico Brown M.D.02/02/2024 1:46 PM Dictation Location: [place] [address] Transcribed By: [facility] 02/02/24 1346 Dictated By: Domenico Brown DO 02/02/24 1344 Signed By: <Electronically signed by Domenico Brown DO in OV> 02/02/24 1346 Narrative 02/02/2024 1:49 PM EDT [facility] Main [address] [address] XRay Report Signed Patient: Kelsea Turcios MR#: [id number] 58 : 1960 Acct:[id number] Age/Sex: 63 / F ADM Date: 02/02/24 Loc: XT Room: Type: [facility] RCR Attending Dr: Roxane Bills MD Copies [...] Procedure Note Radiology, Radiologist, MD - 02/02/2024 [facility] Main [place] [address] [place] [address] XRay Report Signed Patient: Kelsea Turcios MMR#: [id number] 58 : 9Acct:[id number] Age/Sex: 63 / FADM Date: 02/02/24 Loc: Room:Type: [facility] Attending Dr: Roxane Bills MD Copies to: Roxane Bilsl MD Ordering Provider: Roxane Bills MD Date [...] Domenico Brown M.D.02/02/2024 1:46 PM Dictation Location: [place] [address] Transcribed By: [facility] 02/02/24 1346 Dictated By: Domenico Brown DO 02/02/24 1344 Signed By: <Electronically signed by Domenico Brown DO in OV> 02/02/24 1346 us Roxane iBlls MD IMG XR PROCEDURES Final Result documented in this encounter Visit Diagnoses Not on filedocumented in this encounter Care Teams Comb Fixer Relationship Specialty Start Date End Date Giovanni Moreno MD [address] [place] [address] PCP - General Family Medicine 09/18/22 documented as of this encounter
--- OUTSIDE RECORDS SUMMARY | 2024-10-27 07:38 | XMS_ITS | Encounter Summary ---
Author Organization [facility] Address [address] [place] [address] Care Team Providers Care Tag Press Operator Name Role Phone Giovanni Moreno MD Primary Care Provider [phone] Reason for Visit * Reason Comments Med Refill Encounter Details Date Type Department Care Team ([facility] Contact Info) Description 09/25/2022 Refill [facility] SC POD [address] [place] [address] Mack Pride DPM [address] [address] Social History Tobacco Use Types Packs/Day Years [...] Visit [facility] [address] [place] [address] Jeannie Aguilar MD [address] [place] [address] 12/09/2024 10:30 AM EDT Office Visit [facility] SC POD [address] [place] [address] Mack Pride DPM [address] [address] 03/07/2025 2:00 PM EST Office Visit [facility] P[facility] [address] [place] [address] Svetlana Garcia DO [address] [facility] [place] [address] documented as of this encounter Visit Diagnoses Not on filedocumented in this encounter Care Teams Tag Press Operator Relationship Specialty Start Date End Date Giovanni Moreno MD 2520 [facility] [place] [place] [address] PCP - General Family Medicine 09/18/22 documented as of this encounter
--- OUTSIDE RECORDS SUMMARY | 2024-10-27 07:38 | XMS_ITS | Encounter Summary ---
Author Organization [facility] Address [address] [place] [address] Care Team Providers Care Chemical Machine Tender Name Role Phone Giovanni Moreno MD Primary Care Provider [phone] Encounter Details Date Type Department Care Team (Late Contact Info) Description 10/05/2024 External Result Encounter NOMS External Department Unsolicited Roxane Bills MD [address] [place] [address] Social History Tobacco Use Types [...] Visit [facility] [address] [place] [address] Jeannie Aguilar MD [address] [place] [address] 12/09/2024 10:30 AM EDT Office Visit [facility] SC POD [address] [place] [address] Mack Pride DPM [address] [address] 03/07/2025 2:00 PM EST Office Visit [facility] PULM [address] [place] [address] Svetlana Garcia, DO [address] [place] [address] documented as of this encounter [...] Barry M.D. 10/05/2024 3:56 PM Dictation Location: [place] [address] Transcribed By: [facility] 10/05/24 1556 Dictated By: Harvey Barry II, MD 10/05/24 1542 Signed By: <Electronically signed by Harvey Barry II, MD in OV> 10/05/24 1556 Narrative 10/05/2024 3:[address] [facility] Main [address] [address] Nuclear Medicine Report Signed Patient: Kelsea Turcios MR#: [id number] 58 : 1960 Acct:[id number] Age/Sex: 63 / F ADM Date: 10/06/24 Loc: XT [facility]: [facility]: Roxane Bills MD Copies [...] (nopr) Procedure Note Harvey Barry MD - 10/20/[address] [facility] Main [place] [address] [place] [address] Nuclear Medicine Report Signed Patient: Kelsea Turcios MMR#: [id number] 58 : 9Acct:[id number] Age/Sex: 63 / FADM Date: 10/06/24 Loc: Room:Type: [facility] Attending Dr: Roxane Bills MD Copies [...] Barry M.D. 10/05/2024 3:56 PM Dictation Location: [place] [address] Transcribed By: [facility] 10/05/24 1556 Dictated By: Harvey Barry II, MD 10/05/24 1542 Signed By: <Electronically signed by Harvey Barry II, MD inO> 10/05/24 1556 Roxane Bills MD IMG CT PROCEDURES Edited Result - Final documented in this encounter Visit Diagnoses Not on filedocumented in this encounter Care Teams Chemical Machine Tender Relationship Specialty Start Date End Date Giovanni Moreno MD [address] [place] [address] PCP - General Family Medicine 09/18/22 documented as of this encounter
--- OUTSIDE RECORDS SUMMARY | 2024-10-27 07:38 | XMS_ITS | Clinical Summary ---
Author Organization [facility] Address [id number] [address] [place] [address] Care Team Providers Care Preload Supervisor Name Role Phone Svetlana Garcia DO Primary Care Provider [phone] Social History Tobacco Use Types Packs/Day Years [...] 12/12/2024 Medical Devices Not on file Insurance [facility] MEDICAID Care Teams Preload Supervisor Relationship Specialty Start Date End Date Svetlana Garcia DO PCP - General Internal Medicine 09/21/20
--- OUTSIDE RECORDS SUMMARY | 2024-10-27 07:38 | XMS_ITS | Encounter Summary ---
Author Organization [facility] Address [address] [place] [address] Care Team Providers Care Boathouse Keeper Name Role Phone Giovanni Moreno MD Primary Care Provider + [phone] Reason for Visit * Reason Onset Date Comments Med Refill 10/24/2024 Encounter Details Date Type Department Care Team (Late Contact Info) Description 10/24/2024 Telephone [facility] [address] [place] [address] Jeannie Aguilar MD [address] [place] [address] Med Refill Social History Tobacco Use Types Packs/Day Years [...] Telephone Encounter - Isela Trammell LPN - 10/25/2024 9:10 AM EDT MEDICATION SENT TO PHARMACY. * Telephone Encounter - Jj Mora - 10/24/2024 10:54 AM EDT Pt needs refill pankaj sensors to [facility] please and thank you! documented in this encounter Plan of Treatment Upcoming Encounters Date Type Department Care Team (Late st Contact Info) Description 11/21/2024 11:30 AM EDT Office Visit [facility] [address] [place] [address] Jeannie Aguilar MD [address] [place] [address] 12/09/2024 10:30 AM EDT Office Visit [facility] POD [address] [place] [address] Mack Pride DPM 3006 [facility] [address] [place] [address] 03/07/2025 2:00 PM EST Office Visit [facility] [address] [facility] [place] [address] Svetlana Garcia, [address] [facility] [place] [address] documented as of this encounter Visit Diagnoses Diagnosis Type 2 diabetes mellitus with hyperglycemia, with long-term current use of insulin (HCC) documented in this encounter Care Teams Boathouse Keeper Relationship Specialty Start Date End Date Giovanni Moreno MD [address] [place] [address] PCP - General Family Medicine 09/18/22 documented as of this encounter
--- OUTSIDE RECORDS SUMMARY | 2024-10-27 07:38 | XMS_ITS | Encounter Summary ---
Author Organization [facility] Address [address] [place] [address] Care Team Providers Care Baby Sitter Name Role Phone Giovanni Moreno MD Primary Care Provider [phone] Encounter Details Date Type Department Care Team (Late Contact Info) Description 09/18/2022 Abstract [facility] [address] [facility] [address] [place] [address] Mack Pride DPM 3006 [facility] 5 [place] [address] Social History Tobacco Use Types [...] Visit [facility] [address] [place] [address] Jeannie Aguilar MD [address] [place] [address] 12/09/2024 10:30 AM EDT Office Visit [facility] SC POD [address] [place] [address] Mack Pride DPM [address] [address] [place] [address] 03/07/2025 2:00 PM EST Office Visit [facility] P[facility]M [address] [place] [address] Svetlana Garcia DO [address] [facility] [address] [facility] [place] [address] documented as of this encounter Visit Diagnoses Not on filedocumented in this encounter Care Teams Baby Sitter Relationship Specialty Start Date End Date Giovanni Moreno MD [address] [place] [address] PCP - General Family Medicine 09/18/22 documented as of this encounter
--- OUTSIDE RECORDS SUMMARY | 2024-10-27 07:38 | XMS_ITS | Encounter Summary ---
Author Organization [facility] Address [address] [place] [address] Care Team Providers Care Special Makeup Fx Artist Instructor Name Role Phone Giovanni Moreno MD Primary Care Provider + [phone] Encounter Details Date Type Department Care Team (Late Contact Info) Description 09/02/2022 Abstract [facility] [address] [place] [phone] Lien Oglesby MA Social History Tobacco Use [...] Visit [facility] [address] [place] [phone] Jeannie Aguilar MD [address] [place] [address] 12/09/2024 10:30 AM EDT Office Visit [facility] [address] [place] [phone] Mack Pride DPM [address] [facility] [address] [place] [address] 03/07/2025 2:00 PM EST Office Visit [facility] [address] [place] [address] Svetlana Garcia, [address] [place] [address] documented as of this encounter Visit Diagnoses Not on filedocumented in this encounter Care Teams Special Makeup Fx Artist Instructor Relationship Specialty Start Date End Date Giovanni Moreno MD [address] [facility] [place] [address] PCP - General Family Medicine 09/18/22 documented as of this encounter
--- OUTSIDE RECORDS SUMMARY | 2024-10-27 07:38 | XMS_ITS | Clinical Summary ---
Author Organization [facility] Healthcare Address [address] [place] [address] Care Team Providers Care Wagon Washer Name Role Phone Giovanni Moreno MD Primary Care Provider [phone] Allergies Active Allergy Reactions Criticality Noted Date [...] nasal sprayIndications :Chronic obstructive pulmonary disease, unspecified ([facility]) USE 1 SPRAY INTO EACH NOSTRIL EVERY DAY FOR 30 DAYS 16 mL 023 Active HYDROcodone-acet aminophen ([place]) 5-325 MG tablet 023 Active hydrOXYzine HCl (Atarax) 10 MG tablet 023 Active prednisoLONE acetate (Pred-Forte) 1 % ophthalmic suspension 023 Active tiZANidine (Zanaflex) 4 MG tablet Take 4 mg by mouth in the evening Active Refresh Tears 0.5 % ophthalmic solution 023 Active Continuous Blood Gluc Sensor (FreeStyle Alfredo 2 Sensor) [facility] 024 Active BD Pen Needle Micro U/F 32G X 6 MM [facility] 024 Active Fetzima 120 MG extended release capsule 024 Active mirtazapine (Remeron) 45 MG tablet 024 Active olopatadine (Patanol) 0.1 % ophthalmic solution 024 Active furosemide (Lasix) 40 MG tablet 024 Active diclofenac sodium 1 % gelIndications:D iabetes mellitus due to underlying condition with diabetic polyneuropathy, with long-term current use of insulin ([facility]) APPLY 4 GRAMS TO AFFECTED AREA 4 [...] ns:Chronic obstructive pulmonary disease, unspecified COPD type ([facility]) Inhale 2 puffs in the morning and [...] hyperglycemia, with long-term current use of insulin ([facility]) Inject 40 Units under the skin in [...] hyperglycemia, with long-term current use of insulin ([facility]) Inject 50 Units under the skin in the morning. 45 mL 1 025 2024 Active insulin aspart (NovoLOG FLEXPEN) 100 UNIT/ML penIndications:T ype 2 diabetes mellitus with hyperglycemia, with long-term current use of insulin ([facility]) Inject 40 Units under the skin in the morning and 40 Units at noon and 40 Units in the evening. Inject before meals. 120 mL 1 Active dapagliflozin (Farxiga) 10 MGIndications:Ty pe 2 diabetes mellitus with hyperglycemia (HCC) Take 1 tablet (10 mg) by mouth Daily 90 tablet 1 Active busPIRone (Buspar) 5 MG tablet TAKE 1 TABLET BY ORAL ROUTE 1 TIMES PER DAY IN THE AFTERNOON Active hydrOXYzine HCl (Atarax) 25 MG tablet Take 25 mg by mouth 3 (three) times a day as needed for anxiety Active Ozempic, 0.25 or 0.5 MG/DOSE, 2 MG/3ML solution pen-injector Active Continuous Glucose Domestic Maid (FreeStyle Alfredo 3 Sunman) deviceIndication s:Type 2 diabetes mellitus with hyperglycemia, with long-term current use of insulin ([facility]) USE DIRECTED 1 each Active Semaglutide,0.25 or 0.5MG/DOS, (Ozempic, 0.25 or 0.5 MG/DOSE,) 2 MG/3ML solution pen-injectorIndi cations:Type 2 diabetes mellitus with hyperglycemia, with long-term current use of insulin ([facility]) INJECT 0.5 MG UNDER THE SKIN 1 (ONE) TIME PER WEEK 6 mL Active Continuous Glucose Sensor (FreeStyle Alfredo 3 Plus Sensor) miscIndications: Type 2 diabetes mellitus with hyperglycemia, with long-term current use of insulin ([facility]) 1 Bar Every 15 Days 6 each 025 2024 Active Continuous Glucose Sensor (FreeStyle Alfredo 3 Plus Sensor) miscIndications: Type 2 diabetes mellitus with hyperglycemia, with long-term current use of insulin ([facility]) 1 Bar Every 15 Days 6 each 025 2024 Discontinued(R eorder) semaglutide (Ozempic, 0.25 or 0.5 MG/DOSE,) 2 MG/1.5ML solution pen-injectorIndi cations:Type 2 diabetes mellitus with hyperglycemia, with long-term current use of insulin ([facility]) Inject 0.5 mg under the skin 1 (one) time per week 4.5 mL 025 2024 Discontinued Continuous Glucose Sensor (FreeStyle Alfredo 3 Plus Sensor) miscIndications: Type 2 diabetes mellitus with hyperglycemia, with long-term current use of insulin (HCC) 1 Bar Every 15 Days 6 each 1 025 2024 Discontinued(R eodelmy) Active Problems Problem Noted Date Diagnosed Date [...] bowel disease 01/14/202406/2023 Kidney disease 01/14/2024 01/14/2024 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 01/14/2024 01/14/2024 Lumbar [...] Encounters Date Type Department Care Team Description 10/24/2024 Telephone [facility] [address] [place] [address] Jeannie Aguilar MD Med Refill 10/21/2024 Refill [facility] [address] [place] [address] Isela Trammell LPN Type 2 diabetes mellitus with hyperglycemia, with long-term current use of insulin ([facility]) 10/18/2024 Refill [facility] [address] [place] [address] Jeannie Aguilar MD Type 2 diabetes mellitus with hyperglycemia, with long-term current use of insulin ([facility]) 10/05/2024 External Result Encounter [facility] External Department Unsolicited Roxane Bills MD 10/05/2024 External Result Encounter [facility] External Department Unsolicited Roxane Bills MD 09/30/2024 10:10 AM EDT Office Visit [facility] [address] [place] [address] Mack Pride DPM Diabetes mellitus due to underlying condition with diabetic polyneuropathy, with long-term current use of insulin ([facility]) (Primary Dx); Pain due to onychomycosis of toenails of both feet; Xerosis cutis 09/30/2024 Bamboo flowsheet [facility] [address] [place] [address] Mack Pride DPM 09/19/2024 External Result Encounter [...] Refill [facility] [address] [place] [address] Jeannie Aguilar MD Type 2 diabetes mellitus with hyperglycemia, with long-term current use of insulin ([facility]) 08/25/2024 1:30 PM EDT Office Visit [facility] [address] [place] [phone] Svetlana Garcia DO Chronic obstructive pulmonary disease, unspecified COPD type (HCC) (Primary Dx); Obstructive sleep apnea syndrome 08/25/2024 Bamboo flowsheet [facility] [address] [place] [address] Svetlana Garcia DO 08/25/2024 Travel 08/23/2024 External Result Encounter [facility] External Department Unsolicited Roxane Bills MD 08/23/2024 External Result Encounter [facility] External Department Unsolicited Roxane Bills MD 08/23/2024 External Result Encounter [facility] External Department Unsolicited Roxane Bills MD 08/22/2024 11:30 AM EDT [facility] [address] [place] [address] Jeannie Aguilar MD Type 2 diabetes mellitus with hyperglycemia, with long-term current use of insulin (HCC) (Primary Dx); Vitamin D deficiency; Primary hypertension ; Hyperlipemia, mixed ; Insulin long-term use (HCC); Encounter for dietary consultation; Stage 3b chronic kidney disease ([facility]); Class 3 severe obesity due to excess calories with serious comorbidity and body mass index (BMI) of 45.0 to 49.9 in adult ([facility]); Type 2 diabetes mellitus with hyperglycemia (HCC) 08/22/2024 Bamboo flowsheet [facility] [address] [place] [address] Jeannie Aguilar MD 08/17/2024 [facility]ill [facility] [address] [place] [address] Isela Trammell LPN Type 2 diabetes mellitus with hyperglycemia, with long-term current use of insulin (HCC) 07/30/2024 Refill [facility] [address] [place] [address] Svetlana Garcia, Chronic obstructive pulmonary disease, unspecified [...] Visit [facility] [address] [place] [address] Jeannie Aguilar MD [address] [place] [address] 12/09/2024 10:30 AM EDT Office Visit [facility] [address] [place] [phone] Mack Pride DPM [address] [facility] [address] [place] [address] 03/07/2025 2:00 PM EST Office Visit [facility] [address] [place] [phone] Svetlana Garcia DO [address] [place] [address] Health Maintenance Due Date Last Done Comments [...] 10/05/2024 3:56 PM Dictation Location: [place] [address] Transcribed By: [facility] 10/05/24 1556 Dictated By: Harvey Barry II, MD 10/05/24 1542 Signed By: <Electronically signed by Harvey Barry II, MD in OV> 10/05/24 1556 Narrative 10/05/2024 3:59 PM EDT [place] [address] Nuclear Medicine Report Signed Patient: Kelsea Turcios MR#: [id number] 58 : 1960 Acct:[id number] Age/Sex: 63 / F ADM Date: 10/06/24 Loc: Room: Type: [facility] Attending Dr: Roxane Bills MD Copies [...] Procedure Note Harvey Barry MD - 10/20/2024 [facility] [place] [address] [place] [address] Nuclear Medicine Report Signed Patient: Kelsea Turcios MMR#: [id number] 58 : 9Acct:[id number] Age/Sex: 63 / FADM Date: 10/06/24 Loc: Room:Type: [facility] Attending Dr: Roxane Bills MD Copies [...] 10/05/2024 3:56 PM Dictation Location: [place] [address] Transcribed By: [facility] 10/05/24 1556 Dictated By: Harvey Barry II, MD 10/05/24 1542 Signed By: <Electronically signed by Harvey Barry II, MD inOV> 10/05/24 1556 us Roxane Bills MD IMG CT PROCEDURES Edited Result - Final * (ABNORMAL) Uric acid (10/05/2024 10:06 AM EDT) Only the most recent of2 resultswithin the time period is included. URIC ACID 6.7(H) 2.3 - 6.6 mg/dL 10/05/2024 11:56 AM EDT [facility] Other Topography unknown / Unknown 10/05/2024 10:06 AM EDT 10/05/2024 10:15 AM EDT us Roxane Bills MD LAB BLOOD ORDERABLES Final Resul t [facility] [address] [place] [phone], [facility] [address] [place] [phone] * (ABNORMAL) Comprehensive metabolic panel (10/05/2024 10:06 AM EDT) Only the most recent of3 resultswithin the time period is included. Glucose 292(H) 70 - 100 mg/dL 10/05/2024 11:56 AM EDT [facility] Comment: Random Glucose Reference Range is dependent on time and content of last meal. Glucose of more than 200 mg/dL in a nonstressed, ambulatory subject supports the diagnosis of Diabetes Mellitus. ADA recommended reference range BUN 33(H) 7 - 25 mg/dL 10/05/2024 11:56 AM EDT [facility] CREATININE 1.33(H) 0.60 - 1.20 mg/dL 10/05/2024 11:56 AM EDT [facility] ESTIMATED GFR 44.401 10/05/2024 11:56 AM EDT [facility] Sodium 140 136 - 145 mmol/L 10/05/2024 11:56 AM EDT [facility] Potassium, Bld 4.2 3.5 - 5.1 mmol/L 10/05/2024 11:56 AM EDT [facility] Chloride 98 98 - 107 mmol/L 10/05/2024 11:56 AM EDT [facility] Carbon Dioxide 33.6(H) 21.0 - 31.0 mmol/L 10/05/2024 11:56 AM EDT [facility] Anion Gap 12.6 6.0 - 15.0 10/05/2024 11:56 AM EDT [facility] Calcium 9.0 8.6 - 10.3 mg/dL 10/05/2024 11:56 AM EDT [facility] TOTAL PROTEIN 7.7 6.4 - 8.9 g/dL 10/05/2024 11:56 AM EDT [facility] ALBUMIN LEVEL 4.1 3.5 - 5.7 g/dL 10/05/2024 11:56 AM EDT [facility] GLOBULIN 3.6 g/dL 10/05/2024 11:56 AM EDT [facility] ALBUMIN/GLOBULIN RATIO 1.1 10/05/2024 11:56 AM EDT [facility] BILIRUBIN,TOTAL 0.3 0.3 - 1.0 mg/dL 10/05/2024 11:56 AM EDT [facility] ASPARTATE AMINO TRANSFERASE 23 13 - 39 U/L 10/05/2024 11:56 AM EDT [facility] ALANINE AMINOTRANSFERASE 42 7 - 52 U/L 10/05/2024 11:56 AM EDT [facility] ALKALINE PHOSPHATASE 149(H) 34 - 104 U/L 10/05/2024 11:56 AM EDT [facility] CREATININE CLR CALC PHARMACY 46.51 10/05/2024 11:56 AM EDT [facility] Other Topography unknown / Unknown 10/05/2024 10:06 AM EDT 10/05/2024 10:15 AM EDT Roxane Bills MD LAB BLOOD ORDERABLES Final Resul t [place] [phone], [place] [phone] * Biopsy bone marrow (09/19/2024 11:37 AM EDT) 09/19/2024 11:3 7 AM EDT Impressions [facility] - 09/19/2024 11:[address]ful [address]-guided bone marrow biopsy. Impression dictated by: Manish Mccurdy Jr., D.OJane 09/19/2024 11:38 AM Dictation Location: [facility]- Transcribed By: P[facility] 09/19/24 1138 Dictated By: Manish Mccurdy Jr, DO 09/19/24 1137 Signed By: <Electronically signed by Manish Mccurdy Jr, DO in OV> 09/19/24 1138 Narrative [facility] - 09/19/2024 11:41 AM EDT [place] [address] CT Scan Report Signed Patient: Kelsea Turcios MR#: [id number] 58 : 1960 Acct:[id number] Age/Sex: 63 / F ADM Date: 09/19/24 Loc: CT Room: Type: [facility] Attending Dr: Roxane Bills MD Copies [...] Procedure Note Manish Mccurdy Jr., DO - 10/20/2024 [place] [address] CT Scan Report Signed Patient: Kelsea Turcios MMR#: [id number] 58 : 9Acct:[id number] Age/Sex: 63 / FADM Date: 09/19/24 Loc: CT Room:Type: [facility] Attending Dr: Roxane Bills MD Copies [...] Jr., D.O. 09/19/2024 11:38 AM Dictation Location: [place] [address] Transcribed By: [facility] 09/19/24 1138 Dictated By: Manish Mccurdy Jr, DO 09/19/24 1137 Signed By: <Electronically signed by Manish Mccurdy Jr, DO inOV> 09/19/24 1138 us Roxane Bills MD IN CLINIC/BEDSIDE ORDERABLES Bradley shan Result - Final Performing Organization Address [facility] [place] [address], * PATHOLOGY REQUEST FOR LAB FADI (09/19/2024 10:15 AM EDT) PATHOLOGY REQUEST FOR LAB FADI 09/22/2024 8:00 AM EDT [facility] Comment:See report. Scanned copy available in EMR. Other Topography unknown / Unknown 09/19/2024 10:15 AM EDT 09/19/2024 10:15 AM EDT Roxane Bills MD LAB BLOOD ORDERABLES Final Resul t Performing Organization Address [facility] [place] [address], [facility] [address] [place], [place] [phone] * COAGULATION PROFILE (09/19/2024 9:31 AM EDT) PROTHROMBIN TIME 11.8 9.0 - 12.9 s 09/19/2024 9:46 AM EDT [facility] Comment: A hematocrit value greater than 55% may lead to inaccurate results in coagulation testing. Patients having hematocrit values >55% require a special collection tube for coagulation studies. Please contact the laboratory at [phone] for redraw instructions. INR 1.0 09/19/2024 9:46 AM EDT [facility] Comment: INR Therapeutic Range A) Pre- and [...] - 36.5 s 09/19/2024 9:46 AM EDT [facility] Comment: A hematocrit value greater than 55% may lead to inaccurate results in coagulation testing. Patients having hematocrit values >55% require a special collection tube for coagulation studies. Please contact the laboratory at [phone] for redraw instructions. Other Topography unknown / Unknown 09/19/2024 9:31 AM EDT 09/19/2024 9:35 AM EDT [facility] - 09/19/2024 9:46 AM EDT STAT FOR BX us Roxane Bills MD LAB BLOOD ORDERABLES Final Resul t [facility] [address] [place] [address], [facility] [address] [place] [address] * (ABNORMAL) CBC auto differential (09/19/2024 9:31 AM EDT) Only the most recent of2 resultswithin the time period is included. WBC 11.3 3.8 - 11.6 10*3/uL 09/19/2024 9:39 AM EDT [facility] UNCORRECTED WHITE BLOOD COUNT 11.3 3.8 - 11.6 10*3/uL 09/19/2024 9:39 AM EDT [facility] RBC 4.56 3.60 - 5.00 10*6/uL 09/19/2024 9:39 AM EDT [facility] HEMOGLOBIN 13.0 11.8 - 15.4 g/dL 09/19/2024 9:39 AM EDT [facility] HEMATOCRIT 40.6 34.0 - 46.4 % 09/19/2024 9:39 AM EDT [facility] MCV 88.9 80 - 100 fL 09/19/2024 9:39 AM EDT [facility] MCH 28.4 24.7 - 34.3 pg 09/19/2024 9:39 AM EDT [facility] MCHC 32.0 32.0 - 35.0 g/dL 09/19/2024 9:39 AM EDT [facility] RED CELL DISTRIBUTION WIDTH, RDW 15.5(H) 11.9 - 15.3 % 09/19/2024 9:39 AM EDT [facility] PLATELET COUNT 227 150 - 450 10*3/uL 09/19/2024 9:39 AM EDT [facility] MEAN PLATELET VOLUME, MPV 6.9 6.3 - 10.7 fL 09/19/2024 9:39 AM EDT [facility] NEUTROPHILS, % 60.4 . % 09/19/2024 9:39 AM EDT [facility] LYMPHOCYTES, % 28.8 . % 09/19/2024 9:39 AM EDT [facility] MONOCYTE/MACROPHA GE, % 6.4 . % 09/19/2024 9:39 AM EDT [facility] EOSINOPHILS, % 3.8 . % 09/19/2024 9:39 AM EDT [facility] BASOPHILS, % 0.6 . % 09/19/2024 9:39 AM EDT [facility] NRBC 0.1 0 - 0.5 /100{WBC} 09/19/2024 9:39 AM EDT [facility] NEUTROPHILS 6.8 1.8 - 7.7 10*3/uL 09/19/2024 9:39 AM EDT [facility] LYMPHOCYTES 3.2 1.00 - 4.8 10*3/uL 09/19/2024 9:39 AM EDT [facility] MONOCYTES 0.7 0.0 - 0.8 10*3/uL 09/19/2024 9:39 AM EDT [facility] EOSINOPHILS 0.4 0.0 - 0.45 10*3/uL 09/19/2024 9:39 AM EDT [facility] BASOPHILS 0.1 0.0 - 0.2 10*3/uL 09/19/2024 9:39 AM EDT [facility] Blood (Blood) 09/19/2024 9:3 1 AM EDT 09/19/2024 9:35 AM EDT Narrative [facility] - 09/19/2024 9:39 AM EDT STAT FOR BX Roxane Bills MD LAB BLOOD ORDERABLES Final Resul t Performing Organization Address [facility] Co de Phone Number [facility] [address] [place] [address], [facility] [address] [place] [address] * (ABNORMAL) FREE K+L LT CHAINS, QN, S (08/23/2024 11:34 AM EDT) FREE KAPPA LIGHT CHAINS, S 281.2(H) 3.3 - 19.4 mg/L 08/24/2024 3:08 PM EDT [facility] FREE LAMBDA LIGHT CHAINS, S 33.7(H) 5.7 - 26.3 mg/L 08/24/2024 3:08 PM EDT [facility] KAPPA/LAMBDA RATIO, S 8.34(H) 0.26 - 1.65 08/24/2024 3:08 PM EDT [facility] Comment: Performed at: [facility] Lab[address] [id number] Enroller: Jhoan Rich PhD, Phone: [phone] Other Topography unknown / Unknown 08/23/2024 11:34 AM EDT 08/23/2024 11:34 AM EDT us Roxane Bills MD LAB BLOOD ORDERABLES Final Resul t Performing Organization Address [facility] [place] [address], * (ABNORMAL) IMMUNOFIXATION,SERUM ([facility]) (08/23/2024 11:34 AM EDT) IMMUNOFIXATION, SERUM Comment(A A) . 08/25/2024 2:08 PM EDT [facility] Comment: 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 PLEASE NOTE: Samples from patients receiving DARZALEX(R) (daratumumab) or SARCLISA(R)(isatuximab-irfc) treatment can appear as an IgG kappa and mask a complete response (CR). If this patient is receiving these therapies, this MITCH assay interference can be removed by ordering test number 130057- Immunofixation, Daratumumab-Specific, Serum or [id number]- Immunofixation, Isatuximab-Specific, Serum and submitting a new sample for testing or by calling the lab to add this test to the current sample. IMMUNOGLOBULIN G 1,832(H) 586 - 1,602 mg/dL 08/25/2024 2:08 PM EDT [facility] IMMUNOGLOBULIN A, SERUM 546(H) 87 - 352 mg/dL 08/25/2024 2:[address] [facility] IMMUNOGLOBULIN M, SERUM 97 26 - 217 mg/dL 08/25/2024 2:08 PM T [facility] Comment: Performed at: - [address] [id number] Enroller: Jhoan Rich PhD, Phone: [phone] Other Topography unknown / Unknown 08/23/2024 11:34 AM EDT 08/23/2024 11:34 AM EDT us Roxane Bills MD LAB BLOOD ORDERABLES Final Resul t [facility] [address] [place] [address], * (ABNORMAL) Iron and TIBC (08/23/2024 11:34 AM EDT) IRON 57 50 - 212 ug/dL 08/23/2024 1:15 PM EDT [facility] TOTAL IRON BINDING CAPACITY 364 255 - 450 ug/dL 08/23/2024 1:15 PM EDT [facility] % IRON SATURATION 15.7(L) 20 - 50 % 08/23/2024 1:15 PM EDT [facility] TRANSFERRIN 260 203 - 362 mg/dL 08/23/2024 1:15 PM EDT [facility] Other Topography unknown / Unknown 08/23/2024 11:34 AM EDT 08/23/2024 11:34 AM EDT Roxane Bills MD LAB BLOOD ORDERABLES Final Resul t [facility] [address] [place] [address], [facility] [address] [place] [address] * (ABNORMAL) Protein electrophoresis, serum (08/23/2024 11:34 AM EDT) TOTAL PROTEIN, SERUM 7.7 6.0 - 8.5 g/dL 08/24/2024 2:36 PM EDT [facility] ALBUMIN, SERUM 3.3 2.9 - 4.4 g/dL 08/24/2024 2:36 PM EDT [facility] [id number] 0.3 0.0 - 0.4 g/dL 08/24/2024 2:36 PM EDT [facility] [id number] 1.0 0.4 - 1.0 g/dL 08/24/2024 2:36 PM EDT [facility] BETA GLOBULIN 1.3 0.7 - 1.3 g/dL 08/24/2024 2:36 PM EDT [facility] GAMMA GLOBULIN 1.7 0.4 - 1.8 g/dL 08/24/2024 2:36 PM EDT [facility] M-SPIKE 1.0(H) Not Observed g/dL 08/24/2024 2:36 PM EDT [facility] GLOBULIN, TOTAL 4.4(H) 2.2 - 3.9 g/dL 08/24/2024 2:36 PM EDT [facility] A/G RATIO 0.8 0.7 - 1.7 08/24/2024 2:36 PM EDT [facility] SPE-NOTE Comment . 08/24/2024 2:36 PM EDT [facility] Comment: Protein electrophoresis scan will follow via computer, mail, or fisheries director delivery. Performed at: [address], [place], [place] [id number] Enroller: Jhoan Rich PhD, Phone: [phone] Other Topography unknown / Unknown 08/23/2024 11:34 AM EDT 08/23/2024 11:34 AM EDT Roxane Bills MD LAB BLOOD ORDERABLES Final Resul t Performing Organization Address [facility] Co de Phone Number [place] [phone], * (ABNORMAL) Lactate dehydrogenase (08/23/2024 11:34 AM EDT) LDH LACTATE DEHYDROGENASE 277(H) 140 - 271 U/L 08/23/2024 1:15 PM EDT [facility] Other Topography unknown / Unknown 08/23/2024 11:34 AM EDT 08/23/2024 11:34 AM EDT Roxane Bills MD LAB BLOOD ORDERABLES Final Resul t Performing Organization Address [facility] Co de Phone Number [place] [phone], [facility] [address] [place] [phone] * Ferritin (08/23/2024 11:34 AM EDT) FERRITIN 101.2 11.0 - 306.8 ng/mL 08/23/2024 2:49 PM EDT [facility] Other Topography unknown / Unknown 08/23/2024 11:34 AM EDT 08/23/2024 11:34 AM EDT Roxane Bills MD LAB BLOOD ORDERABLES Final Resul t Performing Organization Address [facility] Co de Phone Number [place] [phone], [facility] [address] [place], [place] [phone] * POCT glycosylated hemoglobin (Hb A1C) docked [...] MEDICAID [place] [employer] MEDICARE ADVANTAGE Care Teams Wagon Washer Relationship Specialty Start Date End Date Giovanni Moreno MD [address] [facility] [place] [address] PCP - General Family Medicine 09/18/22
--- OUTSIDE RECORDS SUMMARY | 2024-10-27 07:38 | XMS_ITS | Encounter Summary ---
Author Organization [facility] Address [address] [place] [address] Care Team Providers Care Asbestos Microscopist Name Role Phone Giovanni Moreno MD Primary Care Provider [phone] Encounter Details Date Type Department Care Team (Late Contact Info) Description 02/06/2023 External Result Encounter [facility] External Department Unsolicited Roxane Bills MD [address] [place] [address] Social History Tobacco Use Types [...] Visit [facility] [address] [place] [address] Jeannie Aguilar MD [address] [place] [address] 12/09/2024 10:30 AM EDT Office Visit [facility] [address] [place] [address] Mack Pride DPM [address] [address] 03/07/2025 2:00 PM EST Office Visit [facility] [address] [place] [address] Radha, Svetlana Alexys, DO [address] [place] [address] documented as of this encounter Procedures Procedure [...] Domenico Brown M.D.02/06/2023 4:08 PM Dictation Location: [place] [address] Transcribed By: [facility] 02/06/23 1608 Dictated By: Domenico Brown DO 02/06/23 1606 Signed By: <Electronically signed by Domenico Brown DO in OV> 02/06/23 1608 Narrative 02/24/2023 12:16 PM EST [facility] Main [address] [address] XRay Report Signed Patient: Kelsea Turcios MR#: [id number] 58 : 1960 Acct:[id number] Age/Sex: 62 / F ADM Date: 02/06/23 Loc: XT Room: [facility] Attending Dr: Roxane Bills MD Copies to: [...] survey Procedure Note Radiology, Radiologist, - 02/24/2023 [facility] Main [place] [address] [place] [address] XRay Report Signed Patient: Kelsea Turcios MMR#: [id number] 58 : 9Acct:[id number] Age/Sex: 62 / FADM Date: 02/06/23 Loc: Room:Type: [facility] RCR Attending Dr: Roxane Bills MD [...] Domenico Brown M.D.02/06/2023 4:08 PM Dictation Location: [place] [address] Transcribed By: [facility] 02/06/23 1608 Dictated By: Domenico Brown DO 02/06/23 1606 Signed By: <Electronically signed by Domenico Brown DO in OV> 02/06/23 1608 us Roxane Bills MD IMG XR PROCEDURES Final Result documented in this encounter Visit Diagnoses Not on filedocumented in this encounter Care Teams Asbestos Microscopist Relationship Specialty Start Date End Date Giovanni Moreno MD [address] [place] [address] PCP - General Family Medicine 09/18/22 documented as of this encounter
--- OUTSIDE RECORDS SUMMARY | 2024-10-27 07:38 | XMS_ITS | Encounter Summary ---
Author Organization [facility] Address [address] [place] [address] Care Team Providers Care Satellite Specialist Name Role Phone Giovanni Moreno MD Primary Care Provider [phone] Encounter Details Date Type Department Care Team ([facility] Contact Info) Description 01/29/2023 Abstract [facility] [address] [place] [phone] Svetlana Garcia DO [address] [place] [address] Social History Tobacco Use Types Packs/Day Years [...] Visit [facility] [address] [place] [phone] Jeannie Aguilar MD [address] [place] [address] 12/09/2024 10:30 AM EDT Office Visit [facility] [address] [place] [address] Mack Pride DPM [address] [address] 03/07/2025 2:00 PM EST Office Visit [facility] [address] [place] [phone] Svetlana Garcia DO [address] [facility] [place] [address] documented as of this encounter Visit Diagnoses Not on filedocumented in this encounter Care Teams Satellite Specialist Relationship Specialty Start Date End Date Giovanni Moreno MD [address] [facility] [place] [address] PCP - General Family Medicine 09/18/22 documented as of this encounter
--- OUTSIDE RECORDS SUMMARY | 2024-10-27 07:38 | XMS_ITS | Encounter Summary ---
Author Organization [facility] Address [address] [place] [address] Care Team Providers Care Winch Stripper Name Role Phone Giovanni Moreno MD Primary Care Provider [phone] Encounter Details Date Type Department Care Team (Late Contact Info) Description 02/12/2023 External Result Encounter [facility] External Department Unsolicited Roxane Bills MD [address] [place] [address] Social History Tobacco Use Types [...] Visit [facility] [address] [place] [address] Jeannie Aguilar MD [address] [place] [address] 12/09/2024 10:30 AM EDT Office Visit [facility] [address] [place] [address] Mack Pride DPM [address] [address] 03/07/2025 2:00 PM EST Office Visit [facility] [address] [place] [address] Radha Svetlana Alexys, DO [address] [place] [address] documented as of this encounter Procedures Procedure [...] Mccurdy Jr., D.OJane02/12/2023 11:44 AM Dictation Location: [place] [address] Transcribed By: [facility] 02/12/23 1144 Dictated By: Manish Mccurdy Jr, DO 02/12/23 1137 Signed By: <Electronically signed by Manish Mccurdy Jr, DO in OV> 02/12/23 1144 Narrative 02/24/2023 12:16 PM EST [facility] Main [address] [address] [address] Scan Report Signed Patient: Kelsea Turcios MR#: [id number] 58 : 1960 Acct:[id number] Age/Sex: 62 / F ADM Date: 02/12/23 Loc: CT Room: Type: [facility] Attending Dr: Roxane Bills MD Copies to: Roxane Bills MD Ordering Provider: Roxane Bills MD Date of Service: 02/12/23 CT/CT guided bone marrow bx/aspir: MGUS (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 CT GUIDED [...] bx/aspir Procedure Note Radiology, Radiologist, - 02/24/2023 [facility] Main [place] [address] [place] [address] CT Scan Report Signed Patient: Kelsea Turcios MMR#: [id number] 58 : 9Acct:[id number] Age/Sex: 62 / FADM Date: 02/12/23 Loc: CT Room:Type: [facility] Attending Dr: Roxane Bills MD Copies to: Roxane Bills MD Ordering Provider: Roxane Bills MD Date of Service: 02/12/23 CT/CT guided bone marrow bx/aspir: MGUS ([id number]) CT/CT guided needle placement: . CT GUIDED [...] Mccurdy Jr., D.O.02/12/2023 11:44 AM Dictation Location: [place] [address] Transcribed By: [facility] 02/12/23 1144 Dictated By: Manish Mccurdy Jr, DO 02/12/23 1137 Signed By: <Electronically signed by Manish Mccurdy Jr, DO inOV> 02/12/23 1144 Roxane Bills MD IMG CT PROCEDURES Final Result documented in this encounter Visit Diagnoses Not on filedocumented in this encounter Care Teams Winch Stripper Relationship Specialty Start Date End Date Giovanni Moreno MD [address] [place] [address] PCP - General Family Medicine 09/18/22 documented as of this encounter
--- OUTSIDE RECORDS SUMMARY | 2024-10-27 07:38 | XMS_ITS | Encounter Summary ---
Author Organization [facility] Address [address] [place] [address] Phone Care Team Providers Care Business Advisor Name Role Phone Unavailable Primary Care Provider Unavailabl e Encounter Details Date Type Department Care Team (Late st Contact Info) Description 12/25/2021 Orders Only [facility] [address] [place] [place] [address] Conversion, Onbase Social History Tobacco Use Types [...]
--- OUTSIDE RECORDS SUMMARY | 2024-10-27 07:38 | XMS_ITS | Clinical Summary ---
Author Organization [facility] Address [address] [place] [address] Phone Care Team Providers Care Poultry Farmer Name Role Phone Unavailable Primary Care Provider Unavailabl e Encounters Date Type Department Care Team Description 10/20/2024 8:10 AM EDT Tumor Board Conference [facility] [address] [place] [address] 10/06/[address] [address] Roxane Bills MD History of multiple [...] (Cologuard) 1960 FIT 1960 Lipid Panel 1960 Medicare Annual Wellness Vis it (AWV) 1960 Sigmoidoscopy 1960 MMR Vaccines (1 of 1 - Stand alyssa series) 10/09/1959 Hepatitis C Screening 1976 DTaP/Tdap/Td Vaccines (1 - Tdap) 1980 Mammogram 1998 Pneumococcal Vaccine (1 of 1 - PCV) 2008 Zoster Vaccines (1 of 2) 2008 COVID-19 Vaccine (1 - 2023-2 5 season) 2023 Influenza Vaccine [...] on patient's age to complete this topic Insurance MEDICAID [employer] MEDICARE ASSURE
--- OUTSIDE RECORDS SUMMARY | 2024-10-27 07:38 | XMS_ITS | Encounter Summary ---
Author Organization [facility] Address [address] [place] [address] Care Team Providers Care Probation Officer Name Role Phone Giovanni Moreno MD Primary Care Provider [phone] Reason for Visit * Reason Comments Med Refill Encounter Details Date Type Department Care Team ([facility] Contact Info) Description 01/24/2023 Refill [facility] [address] [place] [address] Mack Pride DPM [address] [address] Diabetes mellitus due to underlying [...] Upcoming Encounters Date Type Department Care Team ([facility] Contact Info) Description 11/21/2024 11:30 AM EDT Office Visit [facility] [address] [place] [address] Jeannie Aguilar MD [address] [place] [address] 12/09/2024 10:30 AM EDT Office Visit [facility] [address] [place] [address] Mack Pride DPM [address] [address] 03/07/2025 2:00 PM EST Office Visit [facility] [address] [facility] [place] [phone] Svetlana Garcia DO [address] [place] [address] documented as of this encounter Visit Diagnoses Diagnosis Diabetes mellitus due to underlying condition with diabetic polyneuropathy, with long-term current use of insulin (HCC)- Primary documented in this encounter Care Teams Probation Officer Relationship Specialty Start Date End Date Giovanni Moreno MD [address] [place] [address] PCP - General Family Medicine 09/18/22 documented as of this encounter
--- OUTSIDE RECORDS SUMMARY | 2024-10-27 07:39 | XMS_ITS | Encounter Summary ---
Author Organization [facility] Address [address] [place] [address] Care Team Providers Care Spinneret Person Name Role Phone Giovanni Moreno MD Primary Care Provider [phone] Encounter Details Date Type Department Care Team ([facility] Contact Info) Description 2022 Abstract [facility] [address] [place] [phone] Svetlana Garcia DO [address] [place] [address] Social History Tobacco Use Types Packs/Day Years [...] Upcoming Encounters Date Type Department Care Team ([facility] Contact Info) Description 11/21/2024 11:30 AM EDT Office Visit [facility] [address] [place] [phone] Jeannie Aguilar MD [address] [place] [address] 12/09/2024 10:30 AM EDT Office Visit [facility] [address] [place] [address] Mack Pride DPM [address] [address] 03/07/2025 2:00 PM EST Office Visit [facility] [address] [place] [phone] Svetlana Garcia DO [address] [place] [address] documented as of this encounter Visit Diagnoses Not on filedocumented in this encounter Care Teams Spinneret Person Relationship Specialty Start Date End Date Giovanni Moreno MD [address] [facility] [place] [address] PCP - General Family Medicine 09/18/22 documented as of this encounter
--- OUTSIDE RECORDS SUMMARY | 2024-10-27 07:39 | XMS_ITS | Encounter Summary ---
Author Organization [facility] Address [address] [place] [address] Care Team Providers Care Thermodynamics Teacher Name Role Phone Giovanni Moreno MD Primary Care Provider [phone] Encounter Details Date Type Department Care Team (Late Contact Info) Description 09/19/2024 External Result Encounter [facility] External Department Unsolicited Roxane Bills MD [address] [place] [address] Social History Tobacco Use Types [...] Visit [facility] [address] [place] [address] Jeannie Aguilar MD [address] [place] [address] 12/09/2024 10:30 AM EDT Office Visit [facility] [address] [place] [address] Mack Pride DPM [address] [address] 03/07/2025 2:00 PM EST Office Visit [facility] [address] [place] [address] Radha Svetlana Alexys, DO [address] [place] [address] documented as of this encounter Procedures Procedure Name Priority Date/Time Associated Diagnosis Comments BIOPSY BONE MARROW 09/19/2024 11 :37 AM EDT documented in this encounter Results * Biopsy bone marrow (09/19/2024 11:37 AM EDT) 09/19/2024 11:3 7 AM EDT Impressions [facility] - 09/19/2024 11:[address]-guided bone marrow biopsy. Impression dictated by: Manish Mccurdy Jr., DJaneOJane 09/19/2024 11:38 AM Dictation Location: [place] [address] Transcribed By: [facility] 09/19/24 1138 Dictated By: Manish Mccurdy Jr, DO 09/19/24 1137 Signed By: <Electronically signed by Manish Mccurdy Jr, DO in OV> 09/19/24 1138 Narrative [facility] - 09/19/2024 11:[address] [facility] Main [address] [address] [address] Scan Report Signed Patient: Kelsea Turcios MR#: [id number] 58 : 1960 Acct:[id number] Age/Sex: 63 / F ADM Date: 09/19/24 [...] Note Manish Mccurdy Jr., DO - 10/20/[address] [facility] Main [place] [address] [place] [address] CT Scan Report Signed Patient: Kelsea Turcios MMR#: [id number] 58 : 9Acct:[id number] Age/Sex: 63 / FADM Date: 09/19/24 Loc: [...] Jr., D.O. 09/19/2024 11:38 AM Dictation Location: [place] [address] Transcribed By: [facility] 09/19/24 1138 Dictated By: Manish Mccurdy Jr, DO 09/19/24 1137 Signed By: <Electronically signed by Manish Mccurdy Jr, DO inOV> 09/19/24 1138 us Roxane Bills MD IN CLINIC/BEDSIDE ORDERABLES Bradley shan Result - Final Performing Organization Address City/State/[facility] Co de Phone Number [facility] [address] [place] [address], documented in this encounter Visit Diagnoses Not on filedocumented in this encounter Care Teams Thermodynamics Teacher Relationship Specialty Start Date End Date Giovanni Moreno MD [address] [place] [address] PCP - General Family Medicine 09/18/22 documented as of this encounter
--- OUTSIDE RECORDS SUMMARY | 2024-10-27 07:39 | XMS_ITS | Encounter Summary ---
Author Organization [facility] Address [address] [place] [address] Phone Care Team Providers Care Perennial House Manager Name Role Phone Unavailable Primary Care Provider Unavailabl e Encounter Details Date Type Department Care Team (Late st Contact Info) Description 10/06/2024 Community Orders Link [facility] [address] [place] [address] Roxane Bills MD [address] [place] [address] History of multiple myeloma (Primary Dx) [...]
--- NOTE | 2024-10-27 07:57 | PM.CN ---
Consult Note: HPI Data of Consult Patient: known to practice within the last 3 years Requesting Physician: Rachana London NP Primary Care Provider: [facility] Consult Narrative Reason for consult: f/u Narrative: Kelsea villatoro pleasant 63 year old female presents for evaluation and management of chronic low back pain. Patient notices increase in pain with walking and activity. Pain today stabbing 6/10 in left leg. pain increasing to 10/10 with standing walking and activity. utilizing gabapentin, norco, tizanidine, and gabapentin with benefit without side effects. recent left L4-5 L5-S1 TFESI providing mild relief and bilateral SIJ injection providing >50% improvement at this time. cc:: CC: Rachana London NP Review of Systems ROS Musculoskeletal Reports: back pain, extremity pain and joint pain PFSH PFSH Medical History Plantar fasciitis �M72.2 - Plantar fascial fibromatosis (ICD-10) Acid reflux �K21.9 - Gastro-esophageal reflux disease without esophagitis (ICD-10) Obesity �E66.9 - Obesity, unspecified (ICD-10) Anxiety �F41.9 - Anxiety disorder, unspecified (ICD-10) COPD (chronic obstructive pulmonary disease) �J44.9 - Chronic obstructive pulmonary disease, unspecified (ICD-10) Asthma �J45.909 - Unspecified asthma, uncomplicated (ICD-10) Sleep apnea �G47.30 - Sleep apnea, unspecified (ICD-10) Hypertension �I10 - Essential (primary) hypertension (ICD-10) Surgical History H/O foot surgery �Z98.890 - Other specified postprocedural states (ICD-10) History of delivery �Z98.891 - History of uterine scar from previous surgery (ICD-10) History of cholecystectomy �Z90.49 - Acquired absence of other specified parts of digestive tract (ICD-10) History of hysterectomy �Z90.710 - Acquired absence of both cervix and uterus (ICD-10) Meds Home Medications and Allergies Home Medications �Medication �Instructions �Recorded �Confirmed �Type allopurinol 300 mg tablet 300 mg PO DAILY 10/30/22 10/17/24 History amlodipine 5 mg tablet (Norvasc) 5 mg PO DAILY 10/30/22 10/17/24 History brexpiprazole 3 mg tablet (Rexulti) 3 mg PO DAILY 10/30/22 10/17/24 History budesonide-formoterol HFA 160 2 inh inhalation BID 10/30/22 10/17/24 History mcg-4.5 mcg/actuation aerosol inhaler (Symbicort) carvedilol 25 mg tablet 25 mg PO BID 10/30/22 10/17/24 History cholecalciferol (vitamin D3) 50 2,000 unit PO BID 10/30/22 10/17/24 History mcg (2,000 unit) capsule colestipol 1 gram tablet 1 g PO BID 10/30/22 10/17/24 History dicyclomine 20 mg tablet 20 mg PO QID 10/30/22 10/17/24 History doxycycline hyclate 100 mg capsule 100 mg PO DAILY 10/30/22 10/17/24 History duloxetine 60 mg capsule,delayed 60 mg PO DAILY 10/30/22 10/17/24 History release (Cymbalta) furosemide 40 mg tablet 40 mg PO DAILY 10/30/22 10/17/24 History hydroxyzine HCl 10 mg tablet 10 mg PO Q8H 10/30/22 10/17/24 History insulin glargine 100 unit/mL (3 20 unit subcut DAILY 10/30/22 10/17/24 History mL) subcutaneous pen (Lantus Solostar U-100 Insulin) ipratropium 0.5 mg-albuterol 3 mg 3 ml inhalation Q6H 10/30/22 10/17/24 History (2.5 mg base)/3 mL nebulization soln ipratropium bromide 0.02 % 0.5 mg inhalation Q6H PRN 10/30/22 10/17/24 History solution for inhalation shortness of breath or wheezing levomilnacipran 120 mg capsule,24 120 mg PO DAILY 10/30/22 10/17/24 History hr,extended release (Fetzima) levothyroxine 50 mcg capsule 50 mcg PO DAILY 10/30/22 10/17/24 History magnesium oxide 500 mg PO DAILY 10/30/22 10/17/24 History mirtazapine 30 mg tablet 30 mg PO DAILY 10/30/22 10/17/24 History montelukast 10 mg tablet 10 mg PO DAILY 10/30/22 10/17/24 History (Singulair) omeprazole 40 mg capsule,delayed 40 mg PO DAILY 10/30/22 10/17/24 History release oxybutynin chloride 10 mg 10 mg PO DAILY 10/30/22 10/17/24 History tablet,extended release 24 hr sucralfate 1 gram tablet 1 g PO TID 10/30/22 10/17/24 History theophylline 200 mg 200 mg PO DAILY 10/30/22 10/17/24 History capsule,extended release 24 hr (Nishant-24) tizanidine 4 mg capsule (Zanaflex) 4 mg PO BID PRN muscle spasticity 10/30/22 10/17/24 History naloxone 4 mg/actuation nasal 4 mg intranasal Q3M PRN opioid 03/04/24 10/17/24 Rx spray (Narcan) overdose #2 ea gabapentin 600 mg tablet See Rx Instructions .Route 03/21/24 10/17/24 Rx .COMPLEX #120 tabs gabapentin 600 mg tablet See Rx Instructions .Route 05/11/24 10/17/24 Rx .COMPLEX #120 tabs hydrocodone 5 mg-acetaminophen 325 1 tab PO TID PRN pain #90 tabs 09/08/24 10/17/24 Rx mg tablet Allergies Allergy/AdvReac Type Severity Reaction Status Date / Time honey Allergy Severe Anaphylaxis Verified 10/17/24 08:45 codeine Allergy Mild itching Verified 10/17/24 08:45 morphine AdvReac Vomiting Verified 10/17/24 08:45 Exam Constitutional Documenting provider has reviewed patient's vital signs: yes Common normals: no apparent distress, oriented x3, healthy appearing, alert and well nourished General appearance: cooperative Nutritional appearance: obese HENMT Common normals: normocephalic, hearing grossly normal bilaterally and moist oral mucous membranes Head and scalp: normocephalic Eye Common normals: PERRL Pupil: PERRL Neck & C-Spine Common normals: full ROM General: normal visual inspection Chest Common normals: inspection of chest normal Respiratory Common normals: normal respiratory effort, no retractions and no use of accessory muscles Other: chronic O2 Back & Pelvis Lumbar spine/lower back: ROM limited, pain with ROM, straight leg raise positive right and straight leg raise positive left Sacroiliac joints: SI joints normal Other: bilateral sij negative gabi(patricks), gaenslens, thigh thrust, compression test decreased sensation to BLE following l4,5,s1 pattern, hx of DPN as well strength 5/5 in BLE Extremity Other: LLE non pitting edema no redness warmth or discoloration, scarring to left miramontes Neuro Common normals: oriented x3 Sensorium/orientation: alert Gait (neuro): antalgic and assistive device used walker Psych Common normals: mental status grossly normal, thought process normal, cooperative, affect normal, speech normal and activity/motor behavior normal Speech: normal speech Thought process: normal thought process Results Additional Findings Additional findings: If on a controlled substance or opioids, I have checked an [place] report on this patient and there are no aberrancies noted in the prescribing history.��If on a controlled substance or opioid a drug screen was completed and reviewed within the last year, and if there has not been a drug screen completed we ordered one today to monitor higher risk, state monitored pain medication use. As part of providing excellent, safe, comprehensive care, the following was completed at our patient's visit: 1. A medication reconciliation and review to ensure accurate knowledge of current/active medications, including asking our patients to inform us about any [id number] medications or herbal remedies/nutritional supplements/alternative remedies. 2. A review to specifically ensure our patients have had annual screening for screening for depression, screening for tobacco use, and screening for unhealthy alcohol use. For concerning screenings had a discussion with the patient, provided patient education, and recommended follow-up with primary care provider when appropriate. If patient noted with a risk of falling, they received education on strength, gait, and balance training to prevent future risk of falling. Portions of this note may have been carried over from the previous visit and updated as appropriate. Please note this office utilizes paper charting in addition to the electronic medical record. A list of current medications, vitals, and PMH is available there as the clinical staff outside of myself do not have access to [employer] charting during the clinic day operations. As part of providing quality comprehensive care the current medications, vitals, and PMH were reviewed in the paper chart. Assessment and Plan Assessment and Plan (1) Lumbar stenosis with neurogenic claudication: (2) Lumbar radiculopathy: (3) Painful diabetic neuropathy: (4) Sacroiliitis: (5) Encounter for long-term use of opiate analgesic: Assessment and Plan: I feel these medications are improving the patient's quality of life and allow them to tolerate activities of daily living as well as participate in recreational activity.� The patient does not report intolerable side effects. The patient is NOT opioid naive and non-pharmacologic and non-opioid treatment has failed to significantly relieve the patient's pain and improve functionality. The patient has a diagnosis that is related to a somatic or visceral pain etiology. � �� I reviewed with the patient the potential risks and side effects with the use of� opioid medications including but not limited to respiratory depression,� sedation, and even . Within the last 12 months I have verified the patient has access to naloxone should� these effects occur. The patient was advised to let� their family know they had Naloxone in case they would need to administer� the medication. I advised the patient to avoid the use of any other� sedation substances including alcohol, THC, and benzodiazepines while� taking opioid medications due to the risk of compounding side effects and� detrimental outcomes. within the last 12 months I have reviewed the [employer], pain treatment agreement and urine drug screen.� �� A drug screen was completed within the last year, and no aberrancies were noted regarding their use of controlled substances. The patient understands they are subject to the terms and conditions of the pain contract that they have signed. � �� I have checked an [place] report on this patient today and there are no aberrancies noted in the prescribing history.� (6) Lumbar spondylosis: Plan 64 year old female with longstanding low back and BLE pain unresponsive to PT/HEP > 6 weeks, heat, ice, tylenol, nsaids. prior lumbar MRI consistent with multilevel degeneration and spinal stenosis. pt has failed to benefit from left L4-5 L5-S1 MBBs for facet mediated low back pain, left l4-5 l5-s1 TFESI for lumbar radiculopathy/lumbar stenosis with NC. pt continues to endorse moderate to severe low back pain, LLE pain, as well as painful DPN. at this time will refer to [facility] for independent evaluation in consideration of surgical intervention. pt to return to our office after consultation. information provided on scs for pt to consider if non-surgical or not interested in surgical intervention, this may be beneficial for her painful DPN, lumbar radiculopathy, lumbar stenosis with NC, and facet mediated low back pain. continue current medication regimen, risks vs benefits reviewed.
== END 2024-10-27 07:36 | disposition home or self-care (01) ==
LOC: PM 07:36
PROVIDERS: Visit Provider Nurse Practitioner
DX: M48.062 Spinal stenosis, lumbar region with neurogenic claudication (principal); M54.16 Radiculopathy, lumbar region; E11.40 Type 2 diabetes mellitus with diabetic neuropathy, unspecified; M46.1 Sacroiliitis, not elsewhere classified; Z79.891 Long term (current) use of opiate analgesic; M47.816 Spondylosis without myelopathy or radiculopathy, lumbar region
CPT/HCPCS: G0463

== ENCOUNTER 2025-02-09 14:14 | Outpatient (OUT) | payer MEDICARE, MEDICAID, SELFPAY ==
--- OUTSIDE RECORDS SUMMARY | 2021-06-20 06:46 | XMS_ITS | Continuity of Care Document ---
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 [address], [place], [id number] , [place]. tel: [phone] OFFICE/OUTPA TIENT VISIT, [facility], [address], [place], [id number] , [place] tel: [phone] [facility] Med Refills (chief complaint) Body mass index [BMI] 45.0-49.9, adultCOPD mixed typeEssential hypertensionLocalize d swelling, mass and lump, right lower limb 1 Pavlock DO Max. [address], [place], [id number] , [place]. tel: [phone] [facility], [address] [place] [address], [id number] , [place] tel: [phone] [facility] No Information 1 Pavlock DO Max. [address], [place], [id number] , [place]. tel: [phone] [facility], [address], [place], [id number] , [place] tel: [phone] [facility] No Information 1 Pavlock DO Max. [address], [place], [id number] , [place]. tel: [phone] [facility], [address] [place] [address], [id number] , [place] tel: [phone] [facility] No Information 1 Pavlock DO Max. [address] [place] [address], [id number] , [place]. tel: [phone] OFFICE/OUTPA TIENT VISIT, [facility], [address], [place], [id number] , [place] tel: [phone] [facility] Medication (chief complaint)N europathy (chief complaint) NeuropathyBody mass index [BMI]40.0-44.9, adult Oct- 1 [facility]. [address], [place], [id number] , [place]. tel: [phone] OFFICE/OUTPA TIENT VISIT, [facility], [address], [place], [id number] , [place] tel: [phone] [facility] check up (chief complaint) Body mass index [BMI]40.0-44.9, adultChronic low back pain, unspecified back pain laterality, unspecified whether sciatica presentLocalized swelling, mass and lump, right lower limbRash 1 [facility]. [address], [place], [id number] , [place]. tel: [phone] OFFICE/OUTPA TIENT VISIT, [facility], [address] [place] [address], [id number] , [place] tel: [phone] [facility] check up (chief complaint) Body mass index [BMI]40.0-44.9, adultPhlebitisType 2 diabetes mellitus with diabetic neuropathy, with long-term current use of insulinRash 1 [facility]. [address], [place], [id number] , [place]. tel: [phone] [facility], [address] [place] [address], [id number] , [place] tel: [phone] [facility] No Information 1 [facility] DO Li. [address] [place] [address], [id number] , [place]. tel: [phone] OFFICE/OUTPA TIENT VISIT, [facility], [address] [place] [address], [id number] , [place] tel: [phone] [facility] check up (chief complaint)d iabetes (chief complaint) Body mass index [BMI] 45.0-49.9, adultRashType 2 diabetes mellitus with diabetic neuropathy, with long-term current use of insulinWound of right lower extremity, subsequent encounter 1 [facility]. [address], [place], [id number] , [place]. tel:[phone] [facility], [address] [place] [address], [id number] , [place] tel:+ [phone] [facility] No Information 1 [facility] Max. [address] [place] [address], [id number] , [place]. tel:[phone] OFFICE/OUTPA TIENT VISIT, [facility], [address] [place] [address], [id number] , [place] tel:+ [phone] [facility] f/u pain/lab draw (chief complaint)R ramiro (chief complaint) Serum potassium elevatedBody mass index [BMI] 45.0-49.9, adultRash 1 [facility]. [address] [place] [address], [id number] , [place]. tel:[phone] OFFICE/OUTPA TIENT VISIT, [facility], [address] [place] [address], [id number] , [place] tel:+ [phone] [facility] med refill (chief complaint)d iabetes (chief complaint) Type 2 diabetes mellitus with diabetic neuropathy, with long-term current use of insulinNeuropathySer um potassium elevatedWound of right lower extremity, subsequent encounter 1 [facility]. [address] [place] [address], [id number] , [place]. tel:+ [phone] OFFICE/OUTPA TIENT VISIT, [facility], [address] [place] [address], [id number] , [place] tel:+ [phone] [facility] ER follow up (chief complaint) Body mass index [BMI]40.0-44.9, adultType 2 diabetes mellitus with diabetic neuropathy, with long-term current use of insulinPhlebitis 1 [facility] Max. [address] [place] [address] [place], [id number] , [place]. tel: [phone] OFFICE/OUTPA TIENT VISIT, [facility], [address] [place] [address], [id number] , [place] tel: [phone] [facility] f/u right leg (chief complaint)M usculoskele reinaldo pain (chief complaint) Essential hypertensionType 2 diabetes mellitus with diabetic neuropathy, with long-term current use of insulinMixed hyperlipidemiaLocali zed swelling, mass and lump, right lower limb 1 Pavlock DO Max. [address] [place] [address], [id number] , [place]. tel: [phone] OFFICE/OUTPA TIENT VISIT, [facility], [address] [place] [address], [id number] , [place] tel: [phone] [facility] f/u leg pain (chief complaint)M usculoskele reinaldo pain (chief complaint) Body mass index [BMI] 45.0-49.9, adultLocalized swelling, mass and lump, right lower limb 1 Pavlock DO Max. [address] [place] [address], [id number] , [place]. tel: [phone] OFFICE/OUTPA TIENT VISIT, [facility], [address] [place] [address], [id number] , [place] tel: [phone] [facility] est care (chief complaint)M usculoskele reinaldo pain (chief complaint)d iabetes (chief complaint) Posterior right knee painEssential hypertensionCOPD mixed typeMixed hyperlipidemiaInsomn ia, unspecified typeNeuropathyType 2 diabetes mellitus with diabetic neuropathy, with long-term current use of insulinLong term (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Hypothyroidis m, unspecified typeChronic low back pain, unspecified back pain laterality, unspecified whether sciatica presentOther chronic pain 1 Pavlock DO Max. [address], [place], [id number] , [place]. tel: [phone] [facility], [address], [place], [id number] , [place] tel: [phone] [facility] Clinic Dental examination 4 John DMD Kirstin. [address], [place], [id number] , [place]. tel:+ [phone] OFFICE/OUTPA TIENT VISIT, EST [facility], [address], [place], [id number] , [place] tel: [phone] [facility] Influenza Vaccine 3 Dialloi DO Josafat. [address], [place], [id number] , [place]. tel: [phone] Family History Family Member Type Diagnosis Age At Onset No Information Immunizations Vaccine Date Status Comments Pneumo (2 yrs or older)(PPV) administered Source: New Immunization Record Flu (split) (3 yrs or older) administered Source: New Immunization Record Payers Payer name Insurance type Covered green party ID Authoriza tion(s) Medicaid [facility] [id number] Social History Type Description Quantity Date Captured Comments Alcohol Use Details Unknown Caffeine Use Details Unknown Tobacco Use Status No Information Smoking Status No Information Sex Female Sexual Orientation Straight or heterosexual Gender Identity Female Chief Complaint And Reason For Visit No Information Reason For Referral Reason For Referral No Information Plan Of Treatment Date Type Action Status Goal Pneumococcal vaccine due Goal Mammogram. Due on 2 due Goal Urine microalbumin. Due on due Goal Tdap. Due on due Goal Urinalysis. Due on due Goal Depression screening. Due on due Goal Hemoglobin A1C. Due on due Goal Influenza Vaccine. Due on due Goal Zoster vaccine (). Due on due Goal Diabetes screening. Due on due Goal Dilated eye exam. Due on Jun due Goal Colonoscopy. Due on due Goal Foot exam. Due on due Goal FOBT. Due on due Goal Dental exam. Due on due Goal ECG. Due on due Goal ECG. Due on due Goal Hemoglobin A1C. Due on due Goal Mammogram. Due on [...] education , guidance, and counseling completed Goal Foot exam. Due on due Goal Mammogram. Due on due Goal Pneumococcal vaccine due Goal Influenza Vaccine. Due on due Goal Hemoglobin A1C. Due on due Goal Dental exam. Due on due Goal Colonoscopy. Due on due Goal Urinalysis. Due on due Goal Urine microalbumin. Due on O due Goal Depression screening. Due on due Goal Dilated eye exam. Due on Jan due Goal Tdap. Due on due Goal Diabetes screening. Due on due Goal Zoster vaccine (). Due on due Goal FOBT. Due on due Goal ECG. Due on due Goal Urinalysis. Due on [...] Goal Urine microalbumin. Due on due Goal Dilated eye exam. Due on Jan due Goal Hemoglobin A1C. Due on due [...] Goal Hemoglobin A1C. Due on due Goal Mammogram. Due on due Goal Dental exam. Due on due Goal Dilated eye exam. Due on Jan due Goal FOBT. Due on due Goal ECG. Due on due Goal Depression screening. Due on due Goal Influenza Vaccine. Due [...] education , guidance, and counseling completed Goal Dilated eye exam. Due on Dec due Goal ECG. Due on due Goal Dental exam. Due on due Goal Colonoscopy. Due on due Goal Diabetes screening. Due on due Goal Foot exam. Due on due Goal Zoster vaccine (). Due on due Goal Tdap. Due on due Goal Urine microalbumin. Due on due Goal Mammogram. Due on due Goal Pneumococcal vaccine due Goal Influenza Vaccine. Due on due Goal Urinalysis. Due on due Goal FOBT. Due on due Goal Hemoglobin A1C. Due on due Goal Depression screening. Due on due Goal Dietary management education , guidance, and counseling completed Goal Influenza Vaccine. Due on due Goal Urinalysis. Due on due Goal FOBT. Due on due Goal Mammogram. Due on due Goal Pneumococcal vaccine due Goal Diabetes screening. Due on A due Goal Urine microalbumin. Due on A due Goal ECG. Due on due Goal Colonoscopy. Due on due Goal Zoster vaccine (). Due on due Goal Dilated eye exam. Due on Nov due Goal Depression screening. Due on due Goal Hemoglobin A1C. Due on due Goal Dental exam. Due on due Goal Tdap. Due on due Goal Foot exam. Due on due Goal Dietary management education , guidance, and counseling completed Goal Pneumococcal vaccine due Goal Zoster vaccine [...] Goal Dental exam. Due on due Goal Influenza Vaccine. Due on due Goal Hemoglobin A1C. Due on due Goal ECG. Due on due Goal FOBT. Due on due Goal Dilated eye exam. Due on Nov due Goal FOBT. Due on due Goal Colonoscopy. Due on due Goal Urinalysis. Due on due Goal Depression screening. Due on due Goal ECG. Due on due Goal Tdap. Due on due Goal Influenza Vaccine. Due on due Goal Urine microalbumin. Due on A due Goal Pneumococcal vaccine due Goal Diabetes screening. Due on A due Goal Hemoglobin A1C. Due on due Goal Dilated eye exam. Due on Nov due Goal Foot exam. Due on due Goal Dental exam. Due on due Goal Zoster vaccine (1st). Due on due Goal Mammogram. Due on due Goal Dietary management education , guidance, and counseling completed Goal Dilated eye exam. Due on Oct [...] Goal Dental exam. Due on due Goal Zoster vaccine (). Due on due Goal FOBT. Due on due Goal Influenza Vaccine. Due on due Goal Depression screening. Due on due Goal Colonoscopy. Due on due Goal Tdap. Due on due Goal Hemoglobin A1C. Due [...] on due Goal Pneumococcal vaccine due Goal Dietary management education , guidance, [...] due Goal Mammogram. Due on due Goal FOBT. Due on due Goal Foot exam. Due on due Goal Zoster vaccine (). Due on due Goal Urine microalbumin. Due on due Goal Lipid panel. Due on due Goal Dilated eye exam. Due on August due Goal Dental exam. Due on due Goal Hemoglobin A1C. Due on due Goal Influenza Vaccine. Due on due Goal Pneumococcal vaccine due Goal ECG. Due on due Goal Depression screening. Due on due Goal Diabetes screening. Due on due Goal Colonoscopy. Due on due Goal Mammogram. Due on due Goal Urinalysis. Due on due Goal Tdap. Due on due Goal Dietary management education , guidance, and counseling completed Goal Tobacco cessation counseling completed Goal Hemoglobin A1C. Due on due Goal Dental exam. Due on due Goal Urine microalbumin. Due on due Goal Lipid panel. Due on due Goal Foot exam. Due on due Goal Pneumococcal vaccine due Goal Dilated eye exam. Due on August due Goal Urinalysis. Due on due Goal ECG. Due on due Goal Diabetes screening. Due on due Goal FOBT. Due on due Goal Mammogram. Due on 1 due Goal Influenza Vaccine. Due on due Goal Tdap. Due on due Goal Depression screening. Due on due Goal Zoster vaccine (1st). Due on due Goal Colonoscopy. Due on 021 due Goal Influenza Vaccine. Due on due Goal Pneumococcal Vaccine. Due on due Referral Ordered: Vascular Surgery (related to Phlebitis) [id number] Ordered: Duplex Scan LE Unilat, Vascular [id number] Ordered: Referrals: Vascular Surgery [id number] Ordered: Duplex Scan BLE, Vascular [id number] Ordered: UNILATERAL NON-INVASIVE LOWER EXTREMITY VENOUS STUDY Right [id number] Ordered: UNILATERAL NON-INVASIVE LOWER EXTREMITY VENOUS STUDY [id number] Ordered: X-Ray Exam Of Knee 4 Or [...] painful at the end of every day [facility] diabetes The problem is g etting worse. [...] refill. Pt states she needs refills on [place] and Vitamin D. Pt states that she no longer sees Dr. Durand for her insulin anymore. Inquiring if provider [...] Álvarez ,above was reviewed and agreed with [facility] Musculoskeletal pain It occurs c onstantly [...] she had her U/S orders performed at [facility] last Thursday. Reports are in pt's chart. Pt states that nothing is changed with her leg/pain. No worsening symptoms, nothing improved. Pt states she will need a refill on her [place] by Thursday. TAWANA Adkins f/u leg pain [...] Dominance: right. est care Pt here to [facility]. Pt c/o R LE pain and swelling [...]
--- OUTSIDE RECORDS SUMMARY | 2025-02-08 06:38 | XMS_ITS | Continuity of Care Document ---
Author Organization [facility] Address [address] [place] [address] Phone Care Team Providers [employer] Name Role Phone Peri Tyson DO Primary Care Provider Sugey Cummins Attending Provider Truong Ward MD Attending Provider Roxane Bills MD Attending Provider Chan Santana DO Emergency Provider [phone] Erin Guevara MD Emergency Provider [phone] Margarito Rajan MD Admit Provider Margarito Rajan MD Other Provider Guillermo Oleary II DO Other Provider [phone] Louis Ellsworth MD Attending Provider Louis Ellsworth MD Other Provider [phone] Brenden Groves DO Referring Provider Care Teams Patient Care Team Team Status: Active Member Role/Relationship Status Dates Peri Tyson DO Primary Care Provider Active Visit Care Team Team Status: Inactive Member Role/Relationship Status Dates Peri Tyson DO Primary Care Provider Active Start: November 22, 2024 End: November 22nilam Cummins NP-CAttending ProviderActiveStart: November 22, 2024 End: November 22, 2024 Visit Care Team Team Status: Inactive Member Role/Relationship Status Dates Peri Tyson DO Primary Care Provider Active Start: December 06, 2024 End: December 06nilam Cummins NP-CAttending ProviderActiveStart: December 06, 2024 End: December 06, 2024 Visit Care Team Team Status: Active Member Role/Relationship Status Dates Peri Tyson DO Primary Care Provider Active Start: December 07, 2024 Carlos Wheatleyending ProviderActiveStart: December 07, 2024 Visit Care Team Team Status: Inactive Member Role/Relationship Status Dates Peri Tyson DO Primary Care Provider Active Start: December 21, 2024 End: December 21enrique Bills MDAttending ProviderActiveStart: December 21, 2024 End: December 21, 2024 Visit Care Team Team Status: Inactive Member Role/Relationship Status Dates ePri Tyson DO Primary Care Provider Active Start: December 26, 2024 End: December 26, 2024Juanjose Barillas ProviderActiveStart: December 26, 2024 End: December 26, 2024 Visit Care Team Team Status: Active Member Role/Relationship Status Dates Peri Tyson DO Primary Care Provider Active Start: December 27, 2024 Christopher Steve ProviderActiveStart: December 27, 2024 Afia Aguayo ProviderActiveStart: December 27, 2024 Sina Aguayo ProviderActiveStart: December 27, 2024 Guillermo Oleary II, DOOther ProviderActiveStart: December 27, 2024 Rashid Johnson ProviderActiveStart: December 27, 2024 Sina Johnson ProviderActiveStart: December 27, 2024 Visit Care Team Team Status: Inactive Member Role/Relationship Status Dates Peri Tyson DO Primary Care Provider Active Start: January 18, 2025 End: January 18my Sanju , JEREMIAHttending ProviderActiveStart: January 18, 2025 End: January 18, 2025 Patient Care Team Team Status: Inactive Member Role/Relationship Status Dates Peri Tyson DO Primary Care Provider Active Start: February 08, 2025 End: February 08Rashid Sherman ProviderActiveStart: February 08, 2025 End: February 08, 2025 Visit Care Team Team Status: Active Member Role/Relationship Status Dates Roxane Bills MD Attending Provider Active Start: February 08, 2025 SHOAIB [facility] ProviderActiveStart: February 08, 2025 Emmanuel Mirandath[facility] ProviderActiveStart: February 08, 2025 Chief Complaint and Reason for Visit Chief Complaint Admit Date tox check November 22, 2024 11 :23am Follow Up Seen upstairs December 06 11:11am BH December 07, 2024 8: 42am f/u December 21, 2024 8:30am ABN Labs December 26, 2024 12:59pm trouble walking, shaking December 27, 2024 8:56am f/u January 18, 2025 11 :13am Abnormal SPEP February 08, 2025 9 :59am Reason for Visit Admit Date Cancer related pain November 22, 2024 11 :23am Encounter for chemotherapy management [facility] 2024 11:23am History of iron deficiency anemia November 22, 2024 11:23am IgG myeloma November 22, 2024 11 :23am Pruritic erythematous rash November 22, 2024 11:23am Bipolar 1 disorder November 22, 2024 11 :23am COPD (chronic obstructive pulmonary dise ase) November 22, 2024 11:23am 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 November 22, 2024 11:23am Hypertension November 22, 2024 11 :23am CKD (chronic kidney disease) stage 3, GF R 30-59 ml/min November 22, 2024 11:23am Morbid obesity with BMI of 45.0-49.9, ad ult November 22, 2024 11:23am Venous stasis dermatitis of both lower e xtremities November 22, 2024 11:23am Cancer related pain December 06, 2024 11 :11am Encounter for chemotherapy management [facility] 2024 11:11am History of iron deficiency anemia December 06, 2024 11:11am IgG myeloma December 06, 2024 11 :11am Pruritic erythematous rash December 06, 2024 11:11am Bipolar 1 disorder December 06, 2024 11 :11am COPD (chronic obstructive pulmonary dise ase) December 06, 2024 11:11am 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 December 06, 2024 11:11am Hypertension December 06, 2024 11 :11am CKD (chronic kidney disease) stage 3, GF R 30-59 ml/min December 06, 2024 11:11am Morbid obesity with BMI of 45.0-49.9, ad ult December 06, 2024 11:11am Venous stasis dermatitis of both lower e xtremities December 06, 2024 11:11am Cancer related pain December 21, 2024 8:30am Encounter for chemotherapy management Se ptember 2024 8:30am Fever of unknown origin (FUO) December 21, 2024 8:30am History of iron deficiency anemia Septem 2024 8:30am IgG myeloma December 21, 2024 8:30am Pruritic erythematous rash December 8:30am Bipolar 1 disorder December 21, 2024 8:30am COPD (chronic obstructive pulmonary dise ase) December 21, 2024 8:30am 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 December 21, 2024 8:30am Hypertension December 21, 2024 8:30am CKD (chronic kidney disease) stage 3, GF R 30-59 ml/min December 21, 2024 8:30am Morbid obesity with BMI of 45.0-49.9, ad ult December 21, 2024 8:30am Venous stasis dermatitis of both lower e xtremities December 21, 2024 8:30am Acute kidney injury superimposed on CKD December 27, 2024 8:56am BMI 40.0-44.9, adult December 27 8:56am Encounter for chemotherapy management Se ptember 2024 8:56am Hypokalemia December 27, 2024 8:56am IgG myeloma December 27, 2024 8:56am Neutropenia December 27, 2024 8:56am Neutropenic fever December 27, 2024 8:56am On home oxygen therapy December 27, 2 025 8:56am Pneumonia December 27, 2024 8:56am Stage 3b [facility] 8:56am Thrombocytopenia December 27, 2024 8:56am Type 2 diabetes mellitus wit h diabetic neuropathy, unspecified December 27, 2024 8:56am Bipolar 1 disorder December 27, 2024 8:56am COPD (chronic obstructive pulmonary dise ase) December 27, 2024 8:56am Hypertension December 27, 2024 8:56am TANYA (obstructive sleep apnea) December 27, 2024 8:56am Acute ITP December 27, 2024 8:56am Cancer related pain January 18, 2025 11 :13am Encounter for chemotherapy management Oc tober 2024 11:13am History of iron deficiency anemia Octobe r 2024 11:13am IgG myeloma January 18, 2025 11 :13am Pruritic erythematous rash January 18, 2025 11:13am Thrombocytopenia January 18, 2025 11 :13am Bipolar 1 disorder January 18, 2025 11 :13am COPD (chronic obstructive pulmonary dise ase) January 18, 2025 11:13am 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 January 18, 2025 11:13am Hypertension January 18, 2025 11 :13am CKD (chronic kidney disease) stage 3, GF R 30-59 ml/min January 18, 2025 11:13am Morbid obesity with BMI of 45.0-49.9, ad ult January 18, 2025 11:13am Venous stasis dermatitis of both lower e xtremities January 18, 2025 11:13am IgG myeloma February 08, 2025 9 :06am COPD (chronic obstructive pulmonary dise ase) February 08, 2025 9:59am 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 February 08, 2025 9:59am 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, [facility] [address] [facility] [address]Hjoiqumjfv scheduled appointment.Alia Sims MDWork Phone: [phone] [facility] [id number] have been scheduled for a follow up appointment for the following date and time, please call to reschedule if needed.Nyla Miranda Phone: [phone] [facility], [facility] [address] [facility] [address] Allergies, Adverse Reactions, Alerts Allergen Type Severity Reaction Last Updated Verified Status codeine Allergy Unknown Rash, itching January 11:29am Yes Active honey Allergy Unknown Hives, anaphylaxis Octobe r 2024 11:29am Yes Active morphine Allergy Unknown Gastrointestinal Upset Oc tober 2024 11:29am Yes Active tramadol Allergy Unknown Hallucinating, hallucinations January 18, 2025 11:29am Yes Active Social History Smoking Status Status Start Date End Date Date of Observa tion Never smoked tobacco (finding) December 28, 2024 12:22pm Observation Status Observation Response Date of Response Legal Sex Female (finding) Sex Assigned At [facility] 1960 Social History Assessments Assessment Value Date Recorded SDOH Follow up December 29, 2024 9:03amQuestionAnswerDate RecordedHas the SDOH screening changed since admission?NSept2024 9:03am Family History Relationship Condition Age at Onset Recorded Date/T [place] son Hypertension Unknown sisterHypertensionUnknownPolyp of colonUnknowngrandparentMalignant neoplasm of breastUnknowngrandparentLeukemiaUnknownbrotherDiabetes mellitusUnknownbrother Diabetes mellitusUnknownHypertensionUnknownbrotherHypertensionUnknownfather DeceasedUnknownfamily memberDeceasedUnknowngrandparentMalignant neoplasmUnknown LeukemiaUnknowngrandparentMalignant neoplasm of breastUnknownmotherDeceased UnknownsonHypertensionUnknownDiabetes mellitusUnknownsisterDiabetes mellitus UnknownHypertensionUnknownsisterHypertensionUnknown Problems Active Problems Problem Diagnosis/Recorded Date Onset Date Status C omments Arthritis of sacroiliac joint July 01, 2023 3:48pm Unkn own Active UTI (urinary tract infection)December 16, 2016 5:04amUnknownActiveStage 3b chronic kidney diseaseMarch 2023 3:48pmUnknownActiveLumbosacral spondylosis without myelopathyMarch 2023 3:48pmUnknownActiveOSA (obstructive sleep apnea)December 16, 2016 5:05amUnknownActiveLong term (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March 2023 3:48pmUnknownActiveType 2 diabetes mellitus with diabetic neuropathy, unspecifiedApril 2024 9:31amUnknown ActiveMorbid (severe) obesity due to excess caloriesApril 2024 9:30am UnknownActiveSymptomatic varicose veins of both lower extremitiesFebruary 2023 10:49amUnknownActiveTrochanteric bursitis of left hipNovember 2023 1:40pmUnknownActiveChronic hypercapnic respiratory failureSeptember 2016 5:03pmUnknownActiveBreast cancer screening by mammogramApril 2023 9:44am UnknownActiveTinea corporisOctober 2023 9:28amUnknownActiveChronic fatigue July 01, 2023 3:48pmUnknownActiveKidney diseaseMarch 2023 3:48pmUnknown ActiveDegenerative joint disease of left hipJanuary 2024 9:58amUnknown ActiveGait instabilityMarch 2023 3:48pmUnknownActiveWound of left lower extremityApril 2023 9:41amUnknownActiveDiarrheaJune 2019 8:50am UnknownActiveFever of unknown origin (FUO)December 21, 2024 9:43amUnknown ActiveEncounter for chemotherapy managementJuly 2024 11:26amUnknownActive HypothyroidismApril 2023 9:40amUnknownActiveNeutropeniaSeptember 2024 3:30pmUnknownActiveMajor depressive disorder with psychotic features December 22, 2016 11:36amUnknownActiveNeutropenic feverSeptember 2024 3:49pmUnknownActiveNeuropathyFebruary 2023 10:12amUnknownActiveOther chronic painMarch 2023 3:48pmUnknownActiveCancer related painJune 2024 6:42pmUnknownActiveDiabetic neuropathy associated with diabetes mellitus due to underlying conditionSeptember 2016 3:44pmUnknownActiveLumbar degenerative disc diseaseMarch 2023 3:48pmUnknownActiveThrombocytopenia December 27, 2024 3:30pmUnknownActiveVenous refluxJanuary 2023 9:27am UnknownActiveIgG myelomaJune 2024 6:33pmUnknownActivePruritic erythematous rashMay 2023 10:34amUnknownActiveAcute kidney injury superimposed on CKD December 27, 2024 4:36pmUnknownActiveMultiple fallsSeptember 2016 3:28pm UnknownActiveBMI 40.0-44.9, adultApril 2024 9:30amUnknownActiveBipolar 1 disorderSeptember 2016 5:06amUnknownActiveHemosiderin pigmentation of skin July 29, 2021 10:58amUnknownActiveHistory of iron deficiency anemiaMay 2023 3:06pmUnknownActiveCOPD (chronic obstructive pulmonary disease)December 16, 2016 5:05amUnknownActivePeripheral edemaSeptember 2016 11:29amUnknown ActiveDegenerative joint disease of cervical and lumbar spineMay 2021 10:25pmUnknownActive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)August 16, 2021 10:21pmUnknownActiveOn home oxygen therapyJune 2019 8:48vkSiwialjXcocbp8-2 L nasal cannulaSwelling of hand jointApril 2024 1:38pmUnknownActiveGERD (gastroesophageal reflux disease)September 20, 2019 8:50amUnknownActiveDebilitySeptember 2016 11:34amUnknownActive HypertensionSeptember 2016 5:08pmUnknownActiveMonoclonal gammopathyJune 2021 11:17amUnknownActivePneumoniaSeptember 2024 3:29pmUnknownActive Irritable bowel diseaseAugust 2022 1:12pmUnknownActiveThyroid diseaseMarch 2023 3:48pmUnknownActiveHypokalemiaSeptember 2024 1:10pmUnknown ActiveInactive/Resolved Problems Problem Diagnosis/Recorded Date Onset Date Status C omments PETER (acute kidney injury) December 16, 2016 5:04am Unkno wn Resolved Ulcer of left lower legJanuary 2023 10:09amUnknownResolvedType 2 diabetes mellitus without complicationsMarch 2023 3:48pmUnknownResolvedDiabetes December 16, 2016 5:05amUnknownResolvedMorbid obesitySeptember 2016 4:32pmUnknownResolvedCKD (chronic kidney disease) stage 3, GFR 30-59 ml/min December 20, 2016 5:03pmUnknownResolvedInflammationJanuary 2023 10:09am UnknownResolvedVenous stasis dermatitis of both lower extremitiesApril 2021 10:58amUnknownResolvedUlcer of right lower legJanuary 2023 10:09am UnknownResolvedRhabdomyolysisSeptember 2016 5:05amUnknownResolvedElevated troponinSeptember 2016 5:05amUnknownResolvedBipolar disorder with depressionOctober 2016 1:14pmUnknownResolvedIron deficiency anemiaJuly 2021 2:25pmUnknownResolvedAcute metabolic encephalopathySeptember 2016 3:28pmUnknownResolvedEpigastric painJune 2019 8:56amUnknownResolved Hallucinations, visualOctober 2016 1:14pmUnknownResolvedMorbid obesity with BMI of 45.0-49.9, adultApril 2023 9:42amUnknownResolvedVenous stasis ulcer limited to breakdown of skin without varicose veinsApril 2021 10:58amUnknownResolvedObesityMarch 2023 3:48pmUnknownResolvedChronic depressionMarch 2023 3:48pmUnknownResolvedDehydrationSeptember 2016 2:34amUnknownResolvedHyperkalemiaJune 2020 6:22pmUnknownResolvedAcute hyperkalemiaJune 2020 2:50pmUnknownResolvedHypomagnesemiaSeptember 2016 5:05amUnknownResolved Medications Medication Status Dose Units Route Directions Qty Days Refills S tart Date Stop Date End Date Reason(s) Instructions Adherence Benzonatate 100 mg capsule Discontinued 100 MG PO Three times daily as needed for cough 30 1February 2023 1:00amMarch 2023 9:08amBenzonatate 100 mg capsule Discontinued0.ROUTE.ISNVVRO954Ldcbb 2023 9:08amApril 2023 12:18pmTAKE 1 CAPSULE BY MOUTH THREE TIMES A DAY NEEDED FOR 5 DAYSAmlodipine 10 mg tablet Hkgoqxpgcanf99IWZTPeahkKwtld 2023 1:00amMarch 2023 9:10amAmlodipine 10 mg tabletDiscontinued0.ROUTE.TTFEBTG142Evcwd 2023 9:10amNovember 2023 2:05pmTAKE 1 TABLET BY MOUTH EVERY DAY FOR 90 DAYSCarboxymethylcellulose Sodium (Refresh Tears) 0.5 % sqkpoMeecqqhujoht2UQWTPUSQ-FAHDWysev daily as needed for dry eye(s)302March 2023 12:00amJune 2023 12:17pmOmeprazole 40 mg capsule,delayed release(DR/EC)Discontinued0.ROUTE.DGCOMRU019Kjeyf 2023 12:22pmOctober 2023 7:37amTAKE 1 CAPSULE BY MOUTH EVERY DAY 30 MINUTES BEFORE MORNING MEAL FOR 90 DAYSBenzonatate 100 mg capsuleDiscontinued0.ROUTE .NPOARYX271Womkg 2023 12:18pmMay 2023 2:31pmTAKE 1 CAPSULE BY MOUTH THREE TIMES A DAY NEEDED FOR 5 DAYSBenzonatate 100 mg capsuleDiscontinued0 .ROUTE.YUBPBJB932Jes 2023 2:31pmJuly 2023 4:19pmTAKE 1 CAPSULE BY MOUTH THREE TIMES A DAY NEEDED FOR 5 DAYSCarboxymethylcellulose Sodium (Refresh Tears) 0.5 % dropsActive0.ROUTE.CTAOUCR202Qtbu [address] 2 DROPS INTO BOTH EYES TWICE DAILY NEEDED FOR DRY EYE(S)Complies with drug therapyFurosemide 40 mg tabletDiscontinued0.ROUTE.MXHLKKP3361Msle 2023 7:57amNovember 2023 2:05pmTAKE 1.5 TABLETS BY MOUTH ONCE DAILYBenzonatate 100 mg capsuleDiscontinued0.ROUTE.QRPWFYT917Pgdf 2023 4:19pmJuly 2023 4:20pmTAKE 1 CAPSULE BY MOUTH THREE TIMES A DAY NEEDED FOR 5 DAYS Benzonatate 100 mg capsuleDiscontinued0.ROUTE.WDHKBSD893Gxmd 2023 4:20pm September 19, 2024 10:00amTAKE 1 CAPSULE BY MOUTH THREE TIMES A DAY NEEDED FOR 5 DAYSDicyclomine 20 mg uqutvjSnlezdqhulgz26XHQPShvyt times tqsjf61075Nmkd 2023 4:57pmJuly 2023 4:59pmIrritable bowel syndrome Irritable bowel syndrome, unspecified ibsDicyclomine 20 mg tabletDiscontinued0.ROUTE.ZCWLTWV0129Wvny 2023 4:59pm May 26, 2024 11:53amIrritable bowel syndrome Irritable bowel syndrome, unspecifiedTAKE 1 TABLET BY MOUTH THREE TIMES A DAY NEEDEDSucralfate 1 gram tabletDiscontinued0.ROUTE.MQDZZWG499Wwqu 2023 8:32amFebruary 2024 9:10amTAKE 1 TABLET BY MOUTH TWICE DAILY ON AN EMPTY STOMACHCarvedilol 25 mg tabletDiscontinued0.ROUTE.KMEKWJT8973Sawv 2023 7:49amNovember 2023 2:05pmTAKE 1 TABLET BY MOUTH TWICE A DAY WITH FOOD FOR 90 DAYSCholecalciferol (Vitamin D3) 50 mcg (2,000 unit) capsuleDiscontinued0 .ROUTE.ETFZZBT1478Qgpbglaww 2023 2:28pmAugust 2024 9:53amTAKE 2 CAPSULES BY MOUTH EVERY DAYOmeprazole 40 mg capsule,delayed release(DR/EC) Discontinued0.ROUTE.KAQMOFC370Tbbcunx 2023 7:36amApril 2024 8:09am TAKE 1 CAPSULE BY MOUTH EVERY DAY 30 MINUTES BEFORE MORNING MEAL FOR 90 DAYS Flash Glucose Sensor (Freestyle Alfredo 2 Sensor) kitActive0.Vrdxk97Xguvhtr 2023 12:00amType 2 diabetes mellitus without complication Type 2 diabetes mellitus without complicationsAs directedFurosemide 40 mg tablet Discontinued0.ROUTE.POCFOAI6516Tbrjbbad 2023 2:05pmJune 2024 9:59am TAKE 1.5 TABLETS BY MOUTH ONCE DAILYCarvedilol 25 mg tabletDiscontinued0.ROUTE .DSSUYSK9407Iszdhrgr 2023 2:05pmJune 2024 9:31amTAKE 1 TABLET BY MOUTH TWICE A DAY WITH FOOD FOR 90 DAYSAmlodipine 10 mg tabletActive0.ROUTE .XGWHMQT908Olpwwqvb 2023 2:05pmTAKE 1 TABLET BY MOUTH EVERY DAY FOR 90 DAYSComplies with drug therapyDuloxetine 60 mg capsule,delayed release(DR/EC) Discontinued0.ROUTE.UFLPMOX677Jirloqm 2024 9:03amOctober 2024 7:55am TAKE 1 CAPSULE BY MOUTH EVERY DAY FOR 90 DAYSSucralfate 1 gram tablet Discontinued0.ROUTE.CARXRBP602Gdhndtgn 2024 9:10amMay 2024 9:25amTAKE 1 TABLET BY MOUTH TWICE DAILY ON AN EMPTY STOMACHDicyclomine 20 mg tablet Wlwyhjkcupwd89RXOAPrela times daily as needed for abdominal ibww1932Usuzeapn 2024 11:53amJuly 2024 8:34amIrritable bowel syndrome Irritable bowel syndrome, unspecifiedOmeprazole 40 mg capsule,delayed release(DR/EC)Active0.ROUTE.YBFWMEN260Tlquv 2024 8:09amTAKE 1 CAPSULE BY MOUTH EVERY DAY 30 MINUTES BEFORE MORNING MEAL FOR 90 DAYSUnknownSucralfate 1 gram tabletActive0.ROUTE.EPHWBRT9305Aym2024 9:25amTAKE 1 TABLET BY MOUTH TWICE DAILY ON AN EMPTY STOMACHUnknownKetoconazole 2 % creamDiscontinued0.ROUTE .XWIMBGL219ZqmSeptember 06, 2024 9:25amJune 2024 10:02amTinea corporis Tinea corporisAPPLY TOPICALLY TWICE DAILY FOR 14 DAYSOlopatadine 0.1 % drops Discontinued0.ROUTE.EXBCSEC565BjnSeptember 06, 2024 9:26amJune 2024 10:02amINSTILL 1 DROP INTO AFFECTED EYE TWICE A DAYCarvedilol 25 mg tabletActive0.ROUTE.COMPLEX 1802024 9:31amTAKE 1 TABLET BY MOUTH TWICE A DAY WITH FOOD FOR 90 DAYSComplies with drug therapyFurosemide 40 mg tabletActive0.ROUTE.JHWVQWZ1469 October 17, 2024 7:42amTAKE 1.5 TABLETS BY MOUTH ONCE DAILYComplies with drug therapyDicyclomine 20 mg tabletActive0.ROUTE.ITRWCYF5370Fvkn 2024 8:34am Irritable bowel syndrome Irritable bowel syndrome, unspecifiedTAKE 1 TABLET THREE TIMES DAILY FOR IBS FOR 30 DAYSComplies with drug therapyLenalidomide (Revlimid) 25 mg capsule Gytyrbhmuvwq37VKQXMzxvq933Mtrc 2024 12:00amAugust 2024 1:57pmfor 21 days of 28 day cycle.swallow whole with glass of water; do not open, crush, chew , break, ordissolve.adult female not of reproductive potential auth#[id number] Magnesium Oxide 400 mg (241.3 mg magnesium) zielobFeqxyo764EPSKCgjnp115Lfbfwg 2024 12:00amUnknownLenalidomide (Revlimid) 25 mg nswmsapQuaezomxcflc91QACJ Duphx388Zzopbz 2024 1:56pmSeptember 2024 11:50amfor 21 days of 28 day cycle.swallow whole with glass of water; do not open, crush, chew , break, ordissolve.adult female not of reproductive potential auth#[id number] (Revlimid) 25 mg jdbqypbNakpglebhpkn11MFFIXkasp793Stsptxsef 2024 11:49am February 08, 2025 9:51amOn Hold: Resume on 02/07/25. Until resumed by heme/onc for 21 days of 28 day cycle.swallow whole with glass of water; do not open, crush, chew , break, ordissolve.adult female not of reproductive potential auth#[id number] 60 mg capsule,delayed release(DR/EC)Active0.ROUTE .PELAPMO927Xpjwgqq 2024 7:55amTAKE 1 CAPSULE BY MOUTH EVERY DAY FOR 90 DAYS UnknownMontelukast 10 mg rfijvhXjwbanrqhaeo4NWFHHOkjpz at bedtimeJune 2017 2:51pmJune 2024 11:18amCarvedilol 6.25 mg cwmlmwHcukpgugtqqo59AKCPAdjbg dailyOctour [facility] 2017 6:[facility]pm[facility] 20[facility] 4:07pmNabumetone 750 mg Tablet Kxcazqflfcuk679COZTCcgvd dailyOctour lady of [facility] 2017 12:00amApril 2021 11:12am Oxybutynin Chloride 10 mg Tablet Extended Release 21reOjmxhm53GQIXDqndn morning January 24, 2018 12:00amComplies with drug therapyHydrocodone-Acetaminophen 5- 325 mg VnbiddXvtbez9COXEXazgg times daily as needed for Back PainOctour lady of [facility] 2017 12:00amComplies with drug therapyAmlodipine 5 mg BwqgbeWeelmmnbyesm22YRJP Every morningOctour lady of [facility] 2017 12:00amMarch 2023 9:10amOmeprazole 40 mg Capsule,Delayed Release(Dr/Ec)Gkowdqejwzna96GTTAOomlz morningOct2017 12:00amApril 2023 12:22pmNortriptyline 10 mg SxzugclNxsddqhmayrd06IXTF Daily at bedtimeOctour lady of [facility] 2017 12:00amApril 2021 11:12amAllopurinol 300 mg ZszvhsHuofjknuzppa789DALPJmqdgYbxuuxb 2017 12:00amApril 2021 11:13amTheophylline (Nishant-24) 200 mg Capsule,Extended Release 24hrDiscontinued 200MGPODailyOct2017 12:00amMay 2021 10:26amConjugated Estrogens (Premarin) 0.3 mg TabletDiscontinued0.3MGPODailyOct2017 12:00amApril 2021 11:11amBudesonide-Formoterol (Symbicort) 160-4.5 mcg/actuation Hfa Aerosol NmewacgHzafrs4JJDHXSYQZMWMMGEozkx dailyOct2017 12:00am Complies with drug therapyMagnesium Oxide 400 mg SwkykqfEtyqhpyzvlwa031XRDHDbxwi January 24, 2018 12:00amAugust 2024 9:53amPioglitazone 15 mg tablet Glcycnrdwvjo95URKWPyvns dailyJanuary 24, 2018 6:45pmApril 2021 11:12am Fluticasone Propionate 50 mcg/actuation [place],XvthhlomngHszshwethifn0OMLUF INTRANASALDa2017 12:00amApril 2021 11:12amDuloxetine (Cymbalta) 20 mg Capsule,Delayed Release(Dr/Ec)Hyxhtrgjxvqe42ZCWXKmyhfQrwnfdf 14th, 2018 12:00amApril 2021 3:58pmTizanidine (Zanaflex) 4 mg Capsule Rzowyyvdixke2DHIKPbxwu dailyJanuary 24, 2018 12:00amApril 2021 11:11am Asenapine Maleate (Saphris (Black Simon)) 5 mg Tablet, SublingualDiscontinued5 MGSUBLINGUALDa2017 12:00amMay 2021 10:19amLevomilnacipran (Fetzima) 80 mg Capsule,Extended Release 24 UkOoziyewrzewq64GJEHKtdnmKgayrwk 14th, 2018 12:00amApril 2021 3:57pmVortioxetine (Trintellix) 20 mg Tablet Pmywrwgdzpob99OGAZBojcsPggslco 14th, 2018 12:00amApril 2021 11:11am Brexpiprazole (Rexulti) 2 mg FlqirqYmszztoekfnu4XQSIWjiok morningJanuary 24, 2018 12:00amMarch 2023 4:13pmdepressionFurosemide 40 mg TabletDiscontinued 40MGPODailyJanuary 2023 1:00amJuly 2023 7:58amTriamcinolone Acetonide 0.1 % vlktvxufDexkzj6UAOVMUXWKVVRAIuxtk bsrzk58321Fdgqifb 2023 1:00amapply to lower legs as discussedUnknownFurosemide 40 mg tabletDiscontinued 40MGPODailyJune 2024 12:00amJuly 2024 7:42amCarvedilol 25 mg tablet Hlknsujvqjpg8NEOQDFaqkc dailySept2016 12:00amSeptember 2016 11:10amOxybutynin Chloride 10 mg tablet extended release 33ghPqdfyrhpvdab9ZUDXY DailySept2016 12:00amSeptember 2016 12:47pmAmlodipine 5 mg jdahqvFgamjcedyqgm3CNYUOTtegxqgNptzanapa 5th, 2017 12:00amSeptember 2016 12:19pmOmeprazole 40 mg capsule,delayed release(DR/EC)Bmlnnzttgqpd4WSGAZGxzpg December 16, 2016 12:00[facility] 12:47pmMontelukast 10 mg tablet Adhkcbleqxoq9VSUSQPamopYlkenqjjj 5th, 2017 12:00[facility] 12:47pm Theophylline 200 mg capsule,extended release 61nzZcfaqrtnffhd7LFFLXNbimg December 16, 2016 12:00[facility] 12:47pmDiazepam 10 mg tablet Hbpotxersqfk2AQSHFBglqm as needed for AnxietySept2016 12:00am December 26, 2016 12:47pmZolpidem 10 mg naclajTctlsobdpnoj6OBWJGGafypxa as needed for InsomniaSept2016 12:[facility] 12:47pm Pioglitazone-Metformin 15-850 mg xttvjeBfmqhjzxminu1OIVAKBtonk with breakfast December 16, 2016 12:[facility] 12:42pmBudesonide-Formoterol 160-4.5 mcg/actuation HFA aerosol naebdqxUczvdlmxhdwk0SFKKPLFMTOURWTIoyck daily December 16, 2016 12:00amSept2016 12:47pmQuetiapine 300 mg tablet extended release 24 ivJumsevnfjymf6PESQAJnxhemqXzaxwtenl 5th, 2017 12:00December 26, 2016 12:47pmBrexpiprazole 4 mg rwrdfyXkbevzrrqrlk2UVXJSQojvd December 16, 2016 12:00[facility] 12:47pmEluxadoline 100 mg tablet Jcdbbdozepdc0EDCRQTagnr daily with mealsSept2016 12:00[facility] 12:47pmNabumetone 750 mg taqpidRzpjdfrxcbmn4DJQGCEtngh dailySept2016 12:00[facility] 12:47pmHydrocodone-Acetaminophen 5-325 mg jhddmaQgczoepsrxvv1IFVBQZ1I as needed for Painpt2016 12:00amJanuary 2017 11:02amVenlafaxine 150 mg capsule,extended release 64cxAudukznvzqsr6 CAPPODailySept2016 12:00amSeptember 2016 12:47pmMagnesium Oxide 400 mg oulnvxPjgojtcelxrg2BTAWAPlmuqDbalsmylu 2016 12:00[facility] 12:47pmGabapentin 800 mg etvmpiQdpcyfyjruug8FMPMGYfgct times dailypt2016 12:00[facility] 12:47pmFerrous Sulfate 325 mg (65 mg iron) puthgeKaucdrfzghkp3BDGBQLjmfaDycnelfau 5th, 2017 12:00[facility] 12:47pmFurosemide 20 mg favrafLnbjenzmmboe6PUWZPPbwpwHwkdzdafm 2016 12:00December 26, 2016 12:47pmMirtazapine 15 mg qrjugnZgbtvlsmoozc4LEFMWCnuutoo December 16, 2016 12:00[facility] 12:47pmCholecalciferol (Vitamin D3) 2,000 unit rfazupqLekwbnegrxae3YYNUMDzmzb dailySept2016 12:00am December 24, 2023 2:28pmIpratropium-Albuterol 0.5 mg-3 mg(2.5 mg base)/3 mL solution for nebulizationDiscontinuedSept2016 12:00[facility] 4:10amTizanidine 4 mg dmduhfTlmbptkxrfem3VBGPYJsbyp daily as needed for AnxietySept2016 12:[facility]2016 12:47pmNortriptyline 25 mg rivmjrrBgycpygrjxqq1YBDDQLfxggXevtvasam 5th, 2017 12:[facility]2016 12:47pmFluticasone Propionate (Flonase Allergy Relief) 50 mcg/actuation [place],RhpjkomjrbVhapelxntsmy7KRZDFPQQOCSLJMBZidtnIvqoenwpi 5th, 2017 12:00December 26, 2016 12:47pmIpratropium [place]carbo 0.03 % [place],Non-Aerosol Lrqdunqcccft9MYCZBSDHRJOAUVWVgpic daily as needed for Allergy SymptomsSept2016 12:[facility]2016 12:47pmVortioxetine (Trintellix) 20 mg GzguegMrnzdparfelv35YJURTahyvKirsmhrbr 5th, 2017 12:[facility] 12:47pmAtorvastatin 40 mg LyiswnTmimfyaqslml32YVKZAadhk mhosudm355Etzqfilgj 8th, 2017 12:[facility]2016 12:47pmCarvedilol 6.25 mg TabletDiscontinued 6.25MGPOTwice fetdi697Qbkmiawmo 8th, 2017 12:00[facility]2016 12:47pm Aspirin 81 mg Tablet,Delayed Release (Dr/Ec)Cufrfskbzcnx20EOJYIuzuw865Zmtbjrrzx 8th, 2017 12:[facility] 12:47pmEnoxaparin (Lovenox) 30 mg/0.3 mL QdcwcgkNezfhzcpduow36MXKYYGKIK78G402Jkvbxevnx 8th, 2017 12:[facility]2016 12:20pmInsulin Aspart U-100 (Novolog Flexpen U-100 Insulin) 100 unit/mL Insulin TjdEczjtondgdew5PZZNACIRQNK4A/Day with meals and bedtime Protocol: *NOT APPROPRIATE TO USE SCALE IF LESS THAN 3 HOURS SINCE PREVIOUS MEAL AND SCALE DOSE* Condition: Corrective Scale #5 (TDI 101-125 UNITS) Condition: Dose/Route: Instructions: Condition: Fingerstick Blood Glucose Dose/Route: Insulin Units Condition: 150-199 mg/dl Dose/Route: 5 unit Condition: 200-249 mg/dl Dose/Route: 9 unit Condition: 250-299 mg/dl Dose/Route: 14 unit Condition: 300-349 mg/dl Dose/Route: 18 unit Condition: 350-400 mg/dl Dose/Route: 22 unit Condition: greater than or = 400 mg/dl Dose/Route: 24 unit Instructions: Call Bpizneau826Ztnnealkg2016 12:002017 11:02amPlease contact the information source for Protocol details.Fluticasone Propion-Salmeterol (Advair Hfa) 115-21 mcg/actuation Hfa Aerosol Inhaler Eywszueqhnsc6MQFETIDUSRVIORNgfnh qmbxs246HcyjbewreDecember 19, 2016 12:00amSept2016 12:47pmPioglitazone 15 mg LkjhpqHjvvwokhjyas07RHDXOxaud with wfmmposcr90999Tfdiffxut2016 12:002017 6:45pmAlbuterol Sulfate 2.5 mg /3 mL (0.083 %) Solution For NebulizationDiscontinued2.5MG GFCFNMKISBG3T as needed for Shortness Of Fsobuc20048Hufneuatq2016 12:00am April 17, 2017 11:07amAtorvastatin 40 mg FcwvmaIcganbdolgtr81NKUVCirym okhqcev90065Ebtpxepwo2016 12:472017 11:08amCarvedilol 6.25 mg TabletDiscontinued6.25MGPOTwice ndsgm50651Ahbdcvooy2016 12:47pmOct2017 6:41pmNabumetone 750 mg esfpebDlfjsbcajprd1YUURPCwnkr bltfu09506 December 26, 2016 12:47pmJan2017 11:01amOxybutynin Chloride 10 mg tablet extended release 08fdWjehsvhoqzmr5SOOWSIxezx83492Shcbamygn 2016 12:47pmJanuary 2017 11:00amTizanidine 4 mg dsajweNpfdvjjbfgaj0TYLCBZpbpg daily as needed for Pybvdxj62785Fdzrlsrse 2016 12:47pmJanuary 2017 10:58amVenlafaxine 150 mg capsule,extended release 18icGkqowipdktsj1RJIPOXrbkt23 300September 2016 12:47pmJanuary 2017 10:50amOmeprazole 40 mg capsule,delayed release(DR/EC)Lpbmurklyncx7GYXJQEhunj75171Ouxxubxrl 2016 12:47pmJanuary 2017 11:00amNortriptyline 25 mg pcyqdohBmlgqyncsbdx8JUBDA Cxebg99304Bgxqrzllk 2016 12:pmJanuary 2017 11:00amMagnesium Oxide 400 mg jmorieOpjujynyrusz7MKQJJDcxss55940Pxrncmppo 2016 12:January 2017 11:02amGabapentin 800 mg taihjgSljdlhuowfcz3CBSUZRltmk times ypvwq5818 0September 2016 12:47pmJanuary 2017 11:11amFerrous Sulfate 325 mg (65 mg iron) jlcloeHgjboqucluyh2ATHZCQokhs12693Vzwiwpcvf 2016 12:47pmOctober 2017 6:40pmMontelukast 10 mg nzsqicEdzwlruqbcsl6VJQRUEsejy89987Beczhhdnr 2016 12:47pmJune 2017 2:52pmFurosemide 20 mg zubrnlPopxypanksti9WUN ZPHtmot51902Tjqdunahk 2016 12:47pmApril 2021 11:13amMirtazapine 15 mg khvghvOvtumyelmpkj1JSTEGGkpbwba81353Jadroadgn 2016 12:47pmJanuary 2017 11:02amTheophylline 200 mg capsule,extended release 81uaMifwhjrnlpar4MVGWK Zdnas34172Qttqdsfwn 2016 12:47pmJanuary 2017 10:59amDiazepam 10 mg jofkngOnpqprgttlzv0HLYKIFftzx as needed for Zzzcoiu96868Wdzxuukjk 2016 12:472017 11:05amZolpidem 10 mg tmnronExlorlogjeaf3MOFLFGekpeam as needed for Umfefegk02735Muvtdqzdl2016 12:472017 10:58am Fluticasone Propionate (Flonase Allergy Relief) 50 mcg/actuation [place],AkzutyfsmsAloocrrkcxte3NZVOGURHNZNNLNSPqpda66670Zkuswajpc 15th, 2017 12:472017 11:04amIpratropium Boncarbo 0.03 % [place],Non-Aerosol Paxdcgsfuszs5CYAPADFOBUUQQBDSiuhz daily as needed for Allergy Xecmgnvm44534 December 26, 2016 12:472017 11:02amFluticasone Propion- Salmeterol (Advair Hfa) 115-21 mcg/actuation Hfa Aerosol InhalerDiscontinued2 PUFFINHALATIONTwice kibia35589Ivdslgwtl2016 12:472017 11:04amBudesonide-Formoterol 160-4.5 mcg/actuation HFA aerosol inhaler Mhibhlqkccjc5FLTGUGBVPOJHSMRlyar jizkz26460Bsenwfyzb2016 12:472017 11:06amQuetiapine 300 mg tablet extended release 24 txSfkiaiankogz4SAH SFYkgnxmt53689Nknbeypqh2016 12:472017 10:59amVortioxetine (Trintellix) 20 mg FgaupoMzkeeehcfxhq29ENIIRmops76550Juqfqqjof 15th, 2017 12:472017 10:51amBrexpiprazole 4 mg gjawnmUitzoeftbhdr3LMJSBVcxgq 10602Cmymlypss2016 12:472017 11:06amEluxadoline 100 mg oegdccZhjtdlvnbrol2TTSRQEyxhs daily with pfusb28439Jcqcboijt2016 12:47pm April 17, 2017 11:05amZolpidem (Ambien) 5 mg MpoagjTdbwsktocwwg5EWFERUnuhb at bedtime as needed for InsomniaApril 17, 2017 1:00amOctober 05, 2017 2:58pm Metformin 500 mg EtunetWnsxpoiespzh018YPWOAbmqu dailyApril 17, 2017 1:00am January 24, 2018 6:41pmGabapentin 800 mg liigmoVxkalrldsrxv3DTQUVClpys times dailyJanuary 2017 11:10amApril 2022 2:59pmEluxadoline (Viberzi) 100 mg DxlqhkKxbuinnbwzcx3GMQTXZbwgc dailyJanuary 2017 1:00amApril 2021 11:11amCelecoxib 200 mg HkrqqvxPrjwllxxqpik772PEWRTmtlq dailyMay 2021 12:00amJune 2021 9:13amFurosemide (Lasix) 40 mg WshyjnFbxldaahbzsb04DSMJ DailyMay 2021 12:00amJune 2021 9:14amIpratropium-Albuterol 0.5 mg-3 mg(2.5 mg base)/3 mL Solution For UtwypzhtrpswQaazcnivwqyi1FBGCZKCBYGFYDadd times dailyMay 2021 12:00amMay 2021 10:33amTheophylline (Nishant) 80 mg/15 mL IuqntfVrczvuyvlzlf938JXEKQpnhuTyl 2021 12:00amAugust 2022 1:43pmMirtazapine (Remeron) 30 mg EtdopdKqzyfmcfmncp17VAQZDmelbQvo 2021 12:00amJune 2021 9:17amGabapentin 100 mg QqorfjaNoipwqspvbth895UIUYHrldc dailyMay 2021 12:[facility] 4:02pmInsulin Glargine (Basaglar Kwikpen U-100 Insulin) 100 unit/mL (3 mL) Insulin CpgMnaaup86RXQBAODSLOPjgab at bedtimeMay 2021 12:00amComplies with drug therapyAsenapine Maleate (Saphris) 5 mg Tablet, QpgyxpxnefXmlsjdrpoecx4PTIRSBGGUVKXEquwt at bedtimeMay 2021 12:00amJune 2021 9:13amDuloxetine 60 mg Capsule, Delayed Rel XiojewurYdhvgdbdgpzv80BJUNMylun morningMa2021 12:00amFebruary 2023 10:08amCyclobenzaprine 10 mg VtglkkZdhmmdxkwtqq65UFHXZvdojhiZsr 2021 12:00amJune 2024 10:01amFerrous Sulfate (Iron (Ferrous Sulfate)) 325 mg (65 mg iron) JlxqyaPpltksosbgwz108OAWVZslawRqgx 2021 12:00amApril 2022 3:01pmFerrous Sulfate (Iron) 325 mg (65 mg iron) YxkzroDoqzckhflyfi309JGQSZlgzg 306July 2021 1:32pmApril 2022 3:01pmInsulin Aspart U-100 (Novolog Flexpen U-100 Insulin) 100 unit/mL (3 mL) insulin penActiveSUBCUTA2024 12:00amUnknownClobetasol 0.05 % fazicuhtCrhdfhbwpmpg3OHVABPTMWPZUFRhkby9364 July 29, 2021 12:00amApril 2022 3:01pmUse with dressing change x 1 week Furosemide 20 mg hqgahgMdqckdkjhuzu6VLYXEYoihiUpsxb 2021 11:13amMay 2021 10:33amCyclobenzaprine 10 mg VlrghgMcrqlrpsdodq28DQVDIqrgpexQjyck 2021 12:00amMay 2021 10:21amIpratropium-Albuterol 0.5 mg-3 mg(2.5 mg base)/3 mL Solution For NlcnqwlhziccTjrgwg6UWWLZTBZHDVEE7Y as needed for WheezingApril 2021 12:00amComplies with drug therapyTizanidine (Zanaflex) 4 mg UjgcuxJrahuahaqmcj1GKLKGneot dailyApril 2021 12:00amJune 2021 9:19amhalf tab in AM and 2 at HSSucralfate 1 gram GebxqdEifggjtbbhef3POSGYydjw times dailyApril 2021 12:00amJuly 2023 8:32amMetformin 850 mg Tablet Bcximsladxih191FGZKYwxgrGtalj 2021 12:00amAugust 2022 1:40pm Levothyroxine 75 mcg TnnwnkDkmflk68XIVNURmxeh morningApril 2021 12:00am Complies with drug therapyDicyclomine 20 mg DygrggKmbcmhigevfn95DNQQHrze times dailyApril 2021 12:00amJuly 2023 4:58pmibsAmitriptyline 10 mg Tablet Wbctdtqrsjqw38XDLTXspii morningApril 2021 12:00amJune 2024 10:00am Mirtazapine (Remeron) 30 mg GjnvjgYpkwmt19QQPDMhupa at bedtimeApril 2021 12:00amComplies with drug therapyFerrous Sulfate (Iron) 325 mg (65 mg iron) OdmtbwXzcuobjjgdos602NLTIXlpisKwrgs 2021 12:00amJuly 2021 1:33pm Albuterol Sulfate (Proair Hfa) 90 mcg/actuation Hfa Aerosol MvzvhbtQapodf1KUML RRCMWVNIVCN8Y as needed for WheezingApril 2021 12:00amComplies with drug therapyHydroxyzine Hcl 10 mg SgpkqxPogood01HBDQViucx times dailyApril 2021 12:00amComplies with drug therapyFluticasone Propionate (Flonase) 50 mcg/actuation [place],CzidirxuhyZzavlwwwhnic5KSSCBBGRXCPMJDSOhoysIipow 2021 12:00amJune 2024 10:01amColestipol 1 gram BmpugrQumhgpbonzfz9JASZIybszUdluh 2021 12:00amApril 2022 3:01pmZonisamide 50 mg CdmiuduYljbcnooijts72 MGPOTwice dailyApril 2021 12:00amMarch 2023 4:00pmZolpidem (Ambien Cr) 6.25 mg Tablet,Ext Release MultiphaseDiscontinued6.25MGPODaily at bedtime as needed for InsomniaApril 2021 12:00amMay 2021 10:26amLevomilnacipran (Fetzima) 120 mg Capsule,Extended Release 24 DwCqgkfm822KEIVUlfmh morningApril 2021 12:00amdepressionComplies with drug therapyDapagliflozin Propanediol (Farxiga) 5 mg KyzpmqJehrdflamdqz5WHMLFdosaFhtay 2021 12:00amMay 2021 10:22amSemaglutide (Ozempic) 0.25 mg or 0.5 mg(2 mg/1.5 mL) Pen Injector Discontinued0.5MGSUBCUTevery weekApril 2021 12:00amMay 2021 10:25am Insulin Glargine (Lantus Solostar U-100 Insulin) 100 unit/mL (3 mL) insulin pen Cnzrrlvuoqao67QYRUBFOYKZ7q/Day before mealsAugust 2022 12:00amAugust 2022 1:39pmIf Blood sugar is greater than 140 takes 2 more units-per patient Insulin Lispro-Aabc (Lyumjev Kwikpen U-100 Insulin) 100 unit/mL insulin pen Hjdnfa46ORCZDBBYSS4t/Day before mealsgust 2022 12:00amFSBS 151-200 2 u 200-250 3 units 250-300 5 units 300-350 6 units 351-400 7 units per patientComplies with drug therapyDapagliflozin Propanediol (Farxiga) 5 mg czvbpxRwdhsfpzhyhs8UCIUBhyxt morningAugus2022 12:00amMarch 2023 4:57pmBrexpiprazole (Rexulti) 4 mg yoqufgFapdtx6OVSAMzwuxJvybvpjgd 2024 12:00amUnknownOlopatadine 0.1 % dropsDiscontinuedDROPSOPHTHALMICMarch 2023 12:00amMay 2024 9:26amFreeTextSig: INSTILL 1 DROP INTO AFFECTED EYE TWICE A DAY FOR 30 DAYS; Note: Source Status: Start; Refills: 5; Qty: 15 Milliliter; Provider: Marbella Whitt ( )Duloxetine 60 mg capsule,delayed release(DR/EC)Ijwkecrfmujv53UUZTHlshuZpkfo 2023 12:00amJanuary 2024 9:03amcarboxymethylcellulose sodium (Refresh Tears)DiscontinuedOPHTHALMICMarch 2023 12:00amJune 2024 10:00amAsenapine Maleate 5 mg tablet, verfgcfxvaVkuspwwblukn2DYJGSMHWQKPZYqdmu at [facility]timeCl[facility] 2023 12:00amSeptember 19, 2024 10:00amPioglitazone-Metformin 15-850 mg kjfisoIxrzfyvtinlk4LXRYXBnlsw dailyClermont County Hospital 2023 12:00amJun2024 10:02amZonisamide 25 mg capsule Urdunu17KZQUHcsvbNqrcr 2023 12:00amUnknownGabapentin 300 mg capsuleActive 600MGPODailyClermont County Hospital 2023 12:00amComplies with drug therapyAspirin 81 mg tablet,delayed release (DR/EC)Dnzfajdjcodr36ASZPBxdmbFwgbt 2023 12:00am September 19, 2024 9:54amLoperamide (Imodium A-D) 2 mg kvulqlUznpbfuadlgr7WCRSVEpam times dailyClermont County Hospital 2023 12:00amSeptember 19, 2024 10:01amFreeTextSi tablet as needed Orally Four times a day; Note: Source Status: Start; Qty: 40 Tablet; Provider: Marbella Whitt ATizanidine (Zanaflex) 4 mg lczvtmMsbscv2AMHDBtldeelHvtwb 2023 12:00amUnknownClonidine Hcl 0.1 mg tabletActive0.1MGPOTwice daily July 01, 2023 12:00amComplies with drug therapyCarvedilol 25 mg tablet Feuntsvibtwp70QLVLHhibg dailyClermont County Hospital 2023 12:00amJuly 2023 7:49am Brexpiprazole 3 mg ckfmrtXvidowykwqli5DKDYIrzaoAxgcq 2023 12:00amOctober 06, 2024 11:20amprenatal vit-iron fum-folic ac ( Vitamin)Discontinued [facility]2023 12:00amSeptember 19, 2024 10:02amFerrous Sulfate 325 mg (65 mg iron) iuyxadHgysyqknpzvm227FNDYWjhuiAqhgd 2023 12:00amSeptember 19, 2024 10:01amColestipol 1 gram cxwahoXnwlncbikisx5ZXQDMeqohJpdzo 2023 12:00am October 06, 2024 11:19amTheophylline 200 mg capsule,extended release 24hr Rftzrfqsfmgy906BECYFjdxtIrejp 2023 12:00amJune 2024 10:02am Dapagliflozin Propanediol (Farxiga) 5 mg axaffjAregsclfcwpu5NHTENxvky rfhvxty828 July 01, 2023 4:57pmNov2023 1:43pmType 2 diabetes mellitus without complication Type 2 diabetes mellitus without complicationsKetoconazole 2 % creamDiscontinued 1APPLICTOPICALTwice qqibl47248Tabpiyq 2023 12:00amMa2024 9:25am Tinea corporis Tinea corporisSemaglutide (Ozempic) 0.25 mg or 0.5 mg (2 mg/3 mL) pen injector Active0.5MGSUBCUTevery weekAugust 31, 2024 12:00amUnknownDapagliflozin Propanediol (Farxiga) 5 mg rzdsbcXnxnkt1UFAMNnlzj qcokszo778Omflctsm2023 1:43pmType 2 diabetes mellitus without complication Type 2 diabetes mellitus without complicationsComplies with drug therapy Ondansetron 8 mg tablet,okiwcrjsqnjjasVfsash3EPLSU6D as needed for Kljzok022Fqpp 2024 12:00amUnknownCalcium Carbonate 600 mg calcium (1,500 mg) tablet Buuoua840NFRYAeren485Nnghwc 2024 12:00amUnknownCholecalciferol (Vitamin D3) 50 mcg (2,000 unit) wkwlevdWrbznu35LDJZDLfyna212Bxzrlx 2024 12:00am UnknownComp.Stocking,Thigh,Long,Large miscActive0.Jzwtf92Jhfuakne 2023 1:00amAs directedComp.Stocking,Thigh,Long,Large miscDiscontinued0.RouteMay 27, 2023 1:00amFebruary 2023 5:01pmSymptomatic varicose veins of both lower extremities Varicose veins of bilateral lower extremities with other complications VENOUS INSUFFICANCYWEAR DAILY, 30 DAYSComp.Stocking,Thigh,Long,Large miscActive0 .Hsuut10Kkwlmpwg 14th, 2024 5:01pmSymptomatic varicose veins of both lower extremities Varicose veins of bilateral lower extremities with other complications VENOUS TCFSSINAWCER23-98 COMPRESSION ,WEAR DAILY, 30 DAYSMethylprednisolone 4 mg tablets,dose kyddGsawlknnlfux3GTpol package trkvmyaoxv030Pehpa 2024 12:00amJune 2024 10:01amOsteoarthritis of left hip Unilateral primary osteoarthritis, left hipPO PER PKG DIR for 6 daysLenalidomide 10 mg jsvrnyeCwruke99CRHMBdwoo179Awmoyfx 2024 12:00amIgG multiple myeloma Multiple myeloma not having achieved remissionswallow whole with glass of water; do not open, crush, chew , break, or dissolve Take day 1-14 every 28 day cycleUnknownAcyclovir 400 mg srqjqjXdxhxf678UOFWQkuuz svzmq81951Oiavwtahg 10th, 2025 12:00amUnknown Immunizations Immunization Event Date Not Given Reason Dose Number Director Information Lot Number Reason(s) Given Vaccine Information Statement (VIS) Detail Administration Location COVID-19 mRNA-1273 (Moderna) June 11, 2021 COVID-19 mRNA-1273 (Moderna)July 12OVID-19 mRNA-1273 (Moderna)January 24OVID-19 mRNA-1273 (Moderna)March 12OVID-19 mRNA-1273 (Moderna)October 28OVID mRNA, Comirnaty ([place])July 05OVI mRNA, Comirnaty ([place])July 25OVID mRNA Bivalent Booster ([place])December 29OVID-19 (STAT-Diagnostica) 12Y and olderSeptember 2022Quadrivalent Influenza (mdv)February 11, 2017Hepatitis B, Recombinant June 13, 2022Hepatitis B, RecombinantSept2022Influenza, trivalent December 17, 2023Flu Vaccine - AdultOctober 2020Influenza Quadrivalent PF MDCKNovember 2018Influenza Quadrivalent PF MDCKSeptember 2020 Influenza Quadrivalent PF MDCKSeptember 2021Influenza Quadrivalent MDCK with preservativeOctober 2017Pneumococcal Conjugate Vaccine, 13 valent May 11, 2018Pneumococcal Conjugate Vaccine, 20 valentNovember 2021 Pneumococcal Polysacc. Vaccine, 23 valentApril neumococcal Polysacc. Vaccine, 23 valentJuly neumococcal Polysacc. Vaccine, 23 valent May 21, 2012Pneumococcal Polysacc. Vaccine, 23 valentMarch 2016 Quadrivalent InfluenzaSeptember 2022Quadrivalent InfluenzaOctober 2019 RSV, preF3, adj, pfOctober 2022RSV, preF3, adj, pfSeptember 2023 Zoster Vaccine Recombinant, AdjuvantedJune 2020Zoster Vaccine Recombinant, AdjuvantedSeptember 2020Tetanus, Diphtheria, Pertussis (Tdap)December 25, 2021Tetanus, Diphtheria, Pertussis (Tdap)January 13, 2023Trivalent Influenza VaccineSeptember 2020Trivalent Influenza VaccineSeptember 2021 Medical Equipment Device Date Implanted Device Details LENS ACRYSOF IOL [id number] October 22, 2017 Posterior-chamber intraocular lens, pseudophakicSeptember 2022UDI: [id number] Procedures Procedure Date Performed Status XR bone survey February 02, 2024 9:05am comple shan XR chest 2V* December 21, 2024 10:56am com pleted XR bone survey August 22, 2021 9:25am completed XR pelvis 1-2V April 25, 2022 10:42am compl eted XR lumbar spine 2-3V* April 25, 2022 10:42am completed XR bone survey February 06, 2023 12:45pm compl eted PET NaF bone init (nopr) October 05, 2024 10:27am completed Blood Culture December 21, 2024 completed Blood Culture December 21, 2024 completed Relevant Diagnostic Tests and/or Laboratory Data Laboratory Results Test Collection Date/Time Result Date/Time Result Interpretation Reference Range Result Comment Performing Site Corrected White Blood Count February 06, 2025 10:35am February 06, 2025 11:55am 7.0 10*3/uL [facility] [id number] [address] [facility] [address]Tnukjbzccwt WBC CountOctober 2024 10:35amOctober 2024 11:55am7.0 10*3/uL3.8-11.6FPremier [facility] [id number] [address] [facility] [address]Lwm Blood CountOctober 2024 10:35amOctober 2024 11:55am3.76 10*6/uL3.60-5.00[facility] [id number] [address] [facility] [address]12[address]PyvutlxskcWdyivpb 2024 10:35amOctober 2024 11:55am 11.9 g/dL11.8-15.4FPremier [facility] [id number] [address] [facility] 29645QkzhpvaeldNpflygt 2024 10:35amOct2024 11:55am 35.1 %34.0-46.4FPremier [facility] Ctr [id number] [address] [facility] [address]684Izuq Corpuscular VolumeOctober 2024 10:35amOctober 2024 11:55am93.4 zG17-471HoqsnhvmfMer[address] [facility] [id number] [address] [place] [address]3500Yvys Corpuscular HemoglobinOctober 2024 10:35amOctober 2024 11:55am31.7 pg24.7-34.3FPremier Health Ctr [id number] [address] [facility] 38473Vjrb Corpuscular Hemoglobin ConcentOctober 2024 10:35am October 2024 11:55am33.9 g/dL32.0-35.0[facility] [id number] [address] [facility] [id number] Cell Distribution WidthOctober 2024 10:35amOctober 2024 11:55am19.1 %Above high cumkls15.9-15.3FPrem[facility] [id number] [address] [facility] 79676Hqtjifro CountOctober 2024 10:35amOctober 2024 11:34vx431 10*3/uLBelow low yednsu959-334VjvtidytrMer[facility] [id number] [address] [facility] 715[address]Qowj Platelet VolumeOctober 2024 10:35amOctober 2024 11:55am9.1 fL6.3-10.7FPremier [facility] [id number] [address] [facility] [id number] (%) (Auto)February 06, 2025 10:35amOctober 2024 11:55am54.9 %.[facility] [id number] [address] [facility] [address]2619Dofgxrcblex (%) (Auto)February 06, 2025 10:35amOctober 2024 11:55am33.1 %.[facility] [id number] [address] [facility] [id number] (%) (Auto)February 06, 2025 10:35amOctober 2024 11:55am11.6 %.[facility] [id number] [address] [facility] [id number] (%) (Auto)February 06, 2025 10:35amOctober 2024 11:55am0.2 %.[facility] [id number] [address] [facility] [id number] (%) (Auto)February 06, 2025 10:35amOctober 2024 11:55am0.2 %.[facility] [id number] [address] [facility] 89971Rbndcoasl RBC Relative Count (auto)February 06, 2025 10:35am February 06, 2025 11:55am0.1 /100{WBC}0-0.5FPrem[facility] [id number] [address] [place] [id number] # (Auto)February 06, 2025 10:35amOctober 2024 11:55am3.8 10*3/uL1.8-7.7FPrem[facility] [id number] [address] [facility] 82460Mtlsargrmno # (Auto)February 06, 2025 10:35amOctober 2024 11:55am2.3 10*3/uL1.00-4.8[facility] [id number] [address] [facility] 30142Kufgdivdg # (Auto)February 06, 2025 10:35amOctober 2024 11:55am0.8 10*3/uL0.0-0.8[facility] [id number] [address] [facility] [address]Yppulogvsos # (Auto)February 06, 2025 10:35amOctober 2024 11:55am0.0 10*3/uL0.0-0.45[facility] [id number] [address] [facility] [id number] # (Auto)February 06, 2025 10:35amOctober 2024 11:55am0.0 10*3/uL0.0-0.2FPremier Health Ctr [id number] [address] [facility] 77650Ctgexcdzn NeutrophilsSeptember 2024 10:05amSeptember 2024 11:36am36 %Below low cdwpxa76-62XkoyeeekjMercy Health [facility] [id number] [address] [facility] 31222Gzev Neutrophils %December 26, 2024 10:05amSeptember 2024 11:36am4 %0-5FPremier Health Ctr [id number] [address] [facility] 52017Uojrmlbkbkl %December 26, 2024 10:05amSeptember 2024 11:36am23 %18-42[facility] [id number] [address] [facility] 30856Brvyenyp LymphocytesSeptember 2024 10:05amSeptember 2024 11:36am2 %0-12[facility] [id number] [address] [facility] 80457Xjbciaogs %December 26, 2024 10:05amSeptember 2024 11:36am7 %2-11[facility] [id number] [address] [facility] 56954Ymxksnkxhtq %December 26, 2024 10:05amSeptember 2024 11:36am29 %Above high normal1-3FPremier Health [facility] [id number] [address] [facility] 36764Saggqvgtu %November 28, 2024 11:25amAugust 2024 12:40pm1 %0-2FPremier [facility] [id number] [address] [facility] 25842Xps Blood Cell MorphologyOctober 2024 2:15pmOctober 2024 3:59pmN/AFPremier Health Ctr [id number] [address] [facility] 51003UlbnvnwzzeijqJrhcjns 2024 2:15pmOctober 2024 3:[address] [facility] [id number] [address] [facility] 59557VbqkiuecyeuvjaTphinrr 2024 2:15pmOctober 2024 3:[address] [facility] [id number] [address] [place] [address] 58578PpoytollhfqsOixdsjy 2024 2:15pmOctober 2024 3:[address] [facility] [id number] [address] [place] [address] 57370KpgwqptzzyurVkrmshgrc 2024 8:57amSeptember 2024 10:47amSlightMercy Health St. [facility] [id number] [address] [facility] 89420Vzbd Drop CellsOctober 2024 2:15pmOctober 2024 3:[address] [facility] [id number] [address] [place] [address] 13948UxyazhehamGjggauj 2024 2:15pmOctober 2024 3:[address] [facility] [id number] [address] [facility] 09579Rkqjthjt EstimateOctober 2024 2:15pmOctober 2024 3:59pmDecreasedNormMansfield Hospital [facility] [id number] [address] [facility] 03064Tertdrrj Morphology CommentOctober 2024 2:15pmOctober 2024 3:59pmNormalNormMansfield Hospital Ctr [id number] [address] [facility] 04717Tnema ColorSeptember 2024 10:30amSeptember 2024 10:57amLight-yellowYellowMercy Health St. [facility] [id number] [address] [facility] 87547Qztyx AppearanceSeptember 2024 10:30amSeptember 2024 10:57amClearClearMercy Health St. [facility] [id number] [address] [facility] 18956Jrudo Specific GravitySeptember 2024 10:30amSeptember 2024 10:57am1.0101.001-1.030[facility] [id number] [address] [facility] 66758Zmqxt pHSeptember 2024 10:30amSeptember 2024 10:57am5.55.0-9.0[facility] [id number] [address] [facility] 32393Ibnyw Leukocyte EsteraseSeptember 2024 10:30amSeptember 2024 10:57amNegativeNegativeMer[address] Health [address]. [facility] [id number] [address] [facility] 76597Flzcz NitriteSeptember 2024 10:30amSeptember 2024 10:57amNegativeNegativeMer[address] [facility] [id number] [address] [facility] 90689Bqhll ProteinSeptember 2024 10:30amSeptember 2024 10:57amNegative mg/dLNegativeMercy Health St. [facility] [id number] [address] [facility] 68429Ufvdo Glucose (UA)December 21, 2024 10:30amSeptember 2024 10:57am>=1000 mg/dLAbove high normalNormMansfield Hospital Ctr [id number] [address] [facility] 10924Bwfon KetonesSeptember 2024 10:30amSeptember 2024 10:57amNegativeNegativeMer[address] Health [address] [id number] [address] [facility] 55287Swthv UrobilinogenSeptember 2024 10:30amSeptember 2024 10:57amNormal mg/dLNormalMercy Health St. [facility] [id number] [address] [facility] 38019Qwgyn BilirubinSeptember 2024 10:30amSeptember 2024 10:57amNegativeNegSelect [facility] [id number] [address] [facility] 82899Qlhhi Occult BloodSeptember 2024 10:30amSeptember 2024 10:57amNegativeNegativeMer[address] Health St[facility] [id number] [address] [facility] 77880Lqegyub LevelOctober 2024 10:35amOctober 2024 1:12qh861 mg/dLAbove high virlqm37-062HDF recommended reference rangeRandom Glucose Reference Range is dependent on time and content of last meal. Glucose of more than 200 mg/dL in a nonstressed, ambulatory subject supports the diagnosisof Diabetes Mellitus.[facility] [id number] [address] [facility] 20637Nohsc Urea NitrogenOctober 2024 10:35amOctober 2024 1:00pm18 mg/dL7-25[facility] [id number] [address] [facility] 13718WreyfvfiecGjnvjqk 2024 10:35amOctober 2024 1:00pm 1.21 mg/dLAbove high normal0.60-1.20[facility] [id number] [address] [facility] 01084Kefdyiomz GFR (Non- AmericanJan2022 11:05am April 17, 2022 1:09pm43 mL/MinMercy Health St. [facility] [id number] [address] [facility] 03183Ppaedrvol GFR (CKD-EPI)February 06, 2025 10:35amOctober 2024 1:00pm49.429 mL/MinMercy Health St. [facility] [id number] [address] [facility] 44207Fofwaftqg GFR ()April 17, 2022 11:05am April 17, 2022 1:09pm52 mL/MinGFR estimated reference range: According to KDOQI guidelines, <60 ml/min/1.73m2 is sufficient todiagnose a patient with chronic kidney disease.[facility] [id number] [address] [facility] 05795Wqoxgu LevelOctober 2024 10:35amOctober 2024 1:00pm 138 mmol/F514-941XrlfsnzqaMercy Health St. [facility] [id number] [address] [facility] 94212Weicayekn LevelOctober 2024 10:35amOctober 2024 1:00pm4.0 mmol/L3.5-5.1FPremier Health Ctr [id number] [address] [facility] 39945Sfvplvlm LevelOctober 2024 10:35amOctober 2024 1:00pm99 mmol/A25-421MhoapornyMercy Health St. [facility] [id number] [address] [facility] 02725Pbrmny Dioxide LevelOctober 2024 10:35amOctober 2024 1:00pm30.0 mmol/L21.0-31.0[facility] [id number] [address] [facility] 62960Exsok GapOctober 2024 10:35amOctober 2024 1:00pm 13.0 mEq/L6.0-15.0[facility] [id number] [address] [facility] 45587Dzohmar LevelOctober 2024 10:35amOctober 2024 1:00pm8.3 mg/dLBelow low normal8.6-10.3FPremier Health [facility]tr [id number] [address] [facility] 21602Nhzduyldd LevelAugust 2024 11:25amAugust 2024 12:00pm1.3 mg/dLBelow low normal1.9-2.7FPremier Health Ctr [id number] [address] [facility] 12810Vghpj ProteinOctober 2024 10:35amOctober 2024 1:00pm6.2 g/dLBelow low normal6.4-8.9[facility] [id number] [address] [facility] 03458JfzixpiDxpsswe 27th, 2025 10:35amOctober 2024 1:00pm3.8 g/dL3.5-5.7FPremier Health Ctr [id number] [address] [facility] 36006ByctxysjPnijdbf 2024 10:35amOctober 2024 1:00pm2.4 g/dLMer[address] [facility] [id number] [address] [facility] 44392Zwizwvp/Globulin RatioOctober 2024 10:35amOctober 2024 1:00pm1.6FPremier Health [facility] [id number] [address] [facility] 10440Ptywq BilirubinOct2024 10:35amOctober 2024 1:00pm0.3 mg/dL0.3-1.0[facility] [id number] [address] [facility] 61644Ghofkwmyk Amino Transf (AST/SGOT)February 06, 2025 10:35am February 06, 2025 1:00pm24 U/W93-78VqzzytwqyMercy Health St. [facility] [id number] [address] [facility] 34328Lfekeay Aminotransferase (ALT/SGPT)February 06, 2025 10:35am February 06, 2025 1:00pm33 U/L7-52[facility] [id number] [address] [place] [address] 19160Zjhkghhk PhosphataseOct2024 10:35amOctober 2024 1:11oi159 U/LAbove high uozuyg45-210HppwqjqgnMercy Health St. [facility] [id number] [address] [facility] 93755Soaxcad DehydrogenaseOct2024 10:35amOctober 2024 1:82cu572 U/D743-558ElgimhqifMercy Health St. [facility] [id number] [address] [facility] 96376Whhx AcidJune 2024 10:06amJune 2024 11:56am6.7 mg/dLAbove high normal2.3-6.6FPremier Health Ctr [id number] [address] [facility] 91549Epnc LevelMay 2024 11:34amMay 2024 1:15pm57 ug/dL 50-212[facility] [id number] [address] [facility] 68301Zxlpd Iron Binding CapacityMay 2024 11:34a2024 1:98fm889 ug/dF072-306OwqgjuvcmMercy Health St[facility] [id number] [address] [facility] 95229Msqh SaturationMay 2024 11:2024 1:15pm15.7 %Below low -38BcvkwifncMercy Health St. [facility] [id number] [address] [place] [address] 12273XebxitlnreyUgu 2024 11:2024 1:92kb700 mg/dL 203-362[facility] [id number] [address] [place] [address] 94063RhxptfslJxk 2024 11:2024 2:62rk123.2 ng/mL 11.0-306.8[facility] [id number] [address] [place] [address] 42253Obpfqmnx Creatinine Clearance (ChemOctober 2024 10:35am February 06, 2025 1:00pm49.13[facility] [id number] [address] [place] [address] 99726Mvdhz Random CreatinineMay 2021 11:03amMay 2021 3:41pm35.9 mg/dLNo reference range establishedMercy Health St. [facility] [address] [facility] 33060Hhgxn ImmunofixationMay 2024 11:2024 2:08pm CommentAbnormal (applies to non-numeric results).Immunofixation shows IgG monoclonal protein with kappalight chain specificity. PLEASE NOTE: Samplesfrom patients receiving DARZALEX(R)(daratumumab) or SARCLISA(R)(isatuximab-irfc) treatmentcan appear as an IgG kappa and mask a complete response(CR). If this patient is receiving these therapies,thisIFE assay interference can be removed by ordering testnumber [id number]- Immunofixation, Daratumumab-Specific,Serum or [id number]- Immunofixation, Isatuximab-Specific,Serum and submitting a new sample f or testing or bycalling the lab to add this test to the current sample.[facility] GOctober 2024 2:17pmOct2024 7:36am 1184 mg/xA739-2163VkrScvf AOct2024 2:17pm January 18, 2025 7:49fg387 mg/nI22-352RfeYewi M January 17, 2025 2:17pmOctober 2024 7:36am37 mg/tQ94-303Lqzqddhmi at: [facility] [address]ap[address]ub[address] [place], [place] [id number] Director: Jhoan Rich PhD, Phone: [phone] B Surface AntibodyJuly 2024 1:59pmAugust 2024 5:36amReactive.Non Reactive: Not immune to HBV infection. Equivocal: Unable to determine if anti-HBs is present atlevels consistent with immunity. Reactive: Anti-HBs concentration detected at greater than 10 mIU/mL. Individual is considered to be immune to infection with HBV.LabPer[facility] B Core Total AntibodyJuly 2024 1:59pm November 11, 2024 5:36amNegativeNegativePerformed at: [employer] [place], [place] [id number] Director: Jhoan Rich PhD, Phone: [phone] 2021 11:03amMay 2021 5:07pm4.9 mg/LAbove high normal0.6-2.4S[employer] Immulite 2000 Immunochemiluminometric assay (ICMA)Values obtained with different assay methods or kits cannotbe used interchangeably. Results cannot be interpreted asabsolute evidence of the presence or absence of malignantdisease.Performed at: [place] [address] [place], [place] [id number] Director: Betty Bah MD, Phone: [phone] B Surface Antigen November 10, 2024 1:59pmAugust 2024 5:36amNegativeNegativeLabCorp C Antibody (EIA)November 10, 2024 1:59pmAugust 2024 5:36amNon reactiveNon ReactiveLabCorp Total ProteinOctober 2024 10:35amOctober 2024 2:08pm6.0 g/dL6.0-8.5[facility] Albumin (Send Out)February 06, 2025 10:35amOctober 2024 2:08pm3.1 g/dL 2.9-4.4[facility] 2024 10:35amOctober 2024 2:08pm0.2 g/dL0.0-0.4[facility] 2024 10:35amOctober 2024 2:08pm0.9 g/dL0.4-1.0[facility] Beta GlobulinsOctober 2024 10:35amOctober 2024 2:08pm1.1 g/dL0.7-1.3 [facility] GlobulinsOctober 2024 10:35amOctober 2024 2:08pm0.7 g/dL0.4-1.8[facility] Electrophoresis M-SpikeFebruary 06, 2025 10:35amOctober 2024 2:08pmComment: g/dLNot ObservedSPE shows asymmetrical gamma. Suggest serum MITCH and free lightchain analysis for further evaluation.[facility] (PEP)February 06, 2025 10:35amOctober 2024 2:08pm2.9 g/dL2.2-3.9[facility] /Globulin (PEP) February 06, 2025 10:35amOctober 2024 2:08pm1.10.7-1.7[facility] Electrophoresis NoteOctober 2024 10:35amOctober 2024 2:08pmComment.Protein electrophoresis scan will follow via computer,mail, or adobe ball mixer delivery.Performed at: [facility] [employer] [id number] Director: Jhoan Rich PhD, Phone: [phone] [place]ka Light Chains, QuantOctober 2024 10:35amOctober 2024 4:09pm36.1 mg/LAbove high normal3.3-19.4[facility] Lambda Light Chains, QuantOctober 2024 10:35amOctober 2024 4:09pm 16.2 mg/L5.7-26.3[facility] Tushka/Lambda Light Chain RatioOctober 2024 10:35amOctober 2024 4:09pm2.23Above high normal0.26-1.65 Performed at: [facility] [address] [id number] Director: Jhoan Rich PhD, Phone: [phone] C InterpretationJuly 2024 1:59pmAugust 2024 5:36amComment.Not infected with HCV unless early or acute infection issuspected (which may be delayed in an immunocompromisedindividual), or other evidence exists to indicate HCVinfection.[facility] ImmunofixationMay 2021 11:03amMay 2021 1:07pmSee comment.No monoclonality detected.Performed at: [facility] [address] [id number] Director: Jhoan Rich PhD, Phone: [phone] Random Total Protein December 06, 2024 12:05pmAugust 2024 3:08pm6.3 mg/dLNot Estab.[facility] Random AlbuminAugust 2024 12:05pmAugust 2024 3:08pm22.9 %.[facility] Qkeim-1-Ojabgfovj (%)December 06, 2024 12:05pmAugust 2024 3:08pm5.1 %.[facility] Random Wsoly-0-Ofqgcspgu %December 06, 2024 12:05pmAugust 2024 3:08pm26.3 %. [facility] Random Beta-Globulin %December 06, 2024 12:05pmAugust 2024 3:08pm25.1 %.[facility] Random Gamma Globulin %December 06, 2024 12:05pmAugust 2024 3:08pm20.6 %.[facility] Random PEP M-Damien %December 06, 2024 12:05pmAugust 2024 3:08pm8.1 %Above high normalNot ObservedLabCorp Random Prot Electrophor Note December 06, 2024 12:05pmAugus2024 3:08pmComment.Protein electrophoresis scan will follow via computer,mail, or adobe ball mixer delivery.Performed at: - [facility] [address] [id number] Director: Jhoan Rich PhD, Phone: [phone] Microbiology Results Procedure Source Result Collection Date/Time Result Date/Time Result Comment Performing Site Blood Culture Blood, Right Arm NO GROWTH 5 DAYS Septem wilian 2024 9:20am December 26, 2024 9:36am [facility] [id number] [address] [place] [address] 14158Sughc CultureBlood, Left WristNO GROWTH 5 DAYSSeptember 2024 9:30amSeptember 2024 9:36amMer[facility] Health [facility] [id number] [address] [facility] [address] Diagnostic Imaging Reports Author Martita Calderon [facility] HospitalAuthoredMay 2021 2:41pmReportDictated Date/TimeDictated ByStatusRadiology ReportMay 2021 2:41pmLynn AsencioHarrison Community [facility] [place] [address] [place] [address] XRay Report Signed Patient: Kelsea Turcios MR#: [id number] : 1960 Acct:[id number] Age/Sex: 60 / F ADM Date: 2 Loc: Room: Type: [facility] Attending Dr: Roxane Bills MD Ordering Provider: Roxane Bills MD Date of Service: 08/22/21 XR/XR bone survey: MGUS Copies to: Roxane Bills MD~ METASTATIC BONE SURVEY - 20 images COMPARISON: [...] dictated by: Martita Calderon M.D.08/22/2021 3:03 PM Dictation Location: [place] [address] Transcribed By: RACHEL 08/22/21 6083 Dictated By: Martita Calderon MD 08/22/21 1441 Signed By: <Electronically signed by MD Martita Calderon in OV> 08/22/21 1503 Author Manish Mccurdy [facility] HospitalAuthocommunity hospital of gardenaJanuary 2022 1:04pmReportDictated Date/TimeDictated ByStatusRadiology ReportJanuary 2022 1:04pmManish Mccurdy Jr [facility] Main [place] [address] [place] [address] XRay Report Signed Patient: Kelsea Turcios MR#: [id number] : 1960 Acct:[id number] Age/Sex: 61 / F ADM Date: 3 [facility]: [facility]: Roxane Bills MD Copies to: MD Shanae Manzo APRN~ Ordering Provider: Shanae Galicia APRN Date of Service: 04/25/22 XR/XR pelvis 1-2V: left leg pain ([id number]) XR/XR lumbar spine 2-3V*: left leg pain Lumbar spine 2 views, pelvis one view Reason for exam: Left-sided hip pain with numbness and tingling down left leg and lower back for months. COMPARISON: None. FINDINGS: Lumbar spine: Vertebral body and disc space heights appear maintained. Facet joint degenerative changes are noted. SI joints also demonstrate degenerative change. Pelvis: No acute bony process. Joint spaces of the hips appear maintained. XR/XR lumbar spine 2-3V* IMPRESSION: Degenerative changes of the lumbar spine without acute bony process. No acute process involving the pelvis. Impression dictated by: Manish Mccurdy Jr., D.O.04/25/2022 1:05 PM Dictation Location: [place] [address] Transcribed By: [facility] 04/25/22 1305 Dictated By: Manish Mccurdy Jr, DO 04/25/22 1304 Signed By: <Electronically signed by aMnish Mccurdy Jr, DO in OV> 04/25/22 1305 Author Domenico Brown [facility]October 2022 4:06pmReportDictated Date/TimeDictated ByStatusRadiology ReportOctour lady of bellefonte hospital 2022 4:06pmDomenico Brown [facility] Main [address] [address] XRay Report Signed Patient: Kelsea Turcios MR#: [id number] : 1960 Acct:[id number] Age/Sex: 62 / F ADM Date: 3 Loc: XT Room: Type: [facility] RCR Attending Dr: Roxane Bills MD Copies to: Roxane Bills MD~ Ordering Provider: Roxane Bills MD Date of [...] Domenico Brown M.D.02/06/2023 4:08 PM Dictation Location: [place] [address] Transcribed By: [facility] 02/06/23 1608 Dictated By: Domenico Brown DO 02/06/23 160 Signed By: <Electronically signed by Domenico Brown DO in OV> 02/06/23 1608 Author Domenico Brown [facility] 2023 1:44pmReportDictated Date/TimeDictated ByStatusRadiology ReportOctour lady of bellefonte hospital 2023 1:44pmDomenico Brown [facility] Main [address] [address] XRay Report Signed Patient: Kelsea Turcios MR#: [id number] : 1960 Acct:[id number] Age/Sex: 63 / F ADM Date: 4 Loc: XT Room: Type: [facility] RCR Attending Dr: Roxane Bills MD Copies to: Roxane Bills MD~ Ordering Provider: Roxane Bills MD Date of [...] Domenico Brown M.D.02/02/2024 1:46 PM Dictation Location: [facility]IO-[facility]-16 Transcribed By: PWS 02/02/24 1346 Dictated By: Domenico Brown DO 02/02/24 1344 Signed By: <Electronically signed by Domenico Brown DO in OV> 02/02/24 1346 Author Harvey Barry [facility] HospitalAuthoredUnc Health [facility] 2024 3:42pmReportDictated Date/TimeDictated ByStatusRadiology ReportJune 2024 3:42pmHarvey Barry II [facility] [place] [address] [place] [address] Nuclear Medicine Report Signed Patient: Kelsea Turcios MR#: [id number] : 1960 Acct:[id number] Age/Sex: 63 / F ADM Date: 5 Loc: Room: Type: [facility] Attending Dr: Roxane Bills MD Copies to: MD Harevy Manzo II, MD~ Ordering Provider: Roxane Bills MD Date of [...] and bowel. PET/PET NaF bone init (nopr) IMPRESSION: Diffuse abnormal bony involvement as described above consistent with the history of multiple myeloma. Impression dictated by: Harvey Barry M.D. 10/05/2024 3:56 PM Dictation Location: [place] [address] Transcribed By: [facility] 10/05/24 1556 Dictated By: Harvey Barry II, MD 10/05/24 1542 Signed By: <Electronically signed by Harvey Barry II, MD in OV> 10/05/24 1556 Author Manish Mccurdy [facility] HospitalAuthoredSeptember 2024 4:14pmReport Dictated Date/TimeDictated ByStatusRadiology ReportSeptember 2024 4:14pm Manish Mccurdy Jr DOcomp[facility] [place] [address] [place] [address] XRay Report Signed Patient: Kelsea Turcios MR#: [id number] : 1960 Acct:[id number] Age/Sex: 64 / F ADM Date: 5 Loc: Room: Type: [facility] RCR Attending Dr: Roxane Bills MD Copies to: Roxane Bills MD~ Ordering Provider: Roxane Bills MD Date of Service: 12/21/24 XR/XR chest 2V*: C90.00 - Multiple myeloma not having achieved remission Chest 2 views CLINICAL HISTORY: Shortness of breath fever for 4 weeks. History of multiple myeloma. COMPARISON: Chest 06/20/2021 FINDINGS: Heart normal in size. Scattered areas of lung scarring similar to the prior study. No consolidation pneumothorax pleural effusion or free air. XR/XR chest 2V* IMPRESSION: SCATTERED AREAS OF LUNG SCARRING. NO CONSOLIDATION TO SUGGEST PNEUMONIA. Impression dictated by: Manish Mccurdy Jr., D.O. 12/21/2024 4:15 PM Dictation Location: [place] [address] Transcribed By: PWS 12/21/241614 Dictated By: Manish Mccurdy Jr, DO 12/21/24 1614 Signed By: <Electronically signed by Manish Mccurdy Jr, DO in OV> 12/21/241614 Vital Signs Vital Reading Result Reference Range Collection Date/Time Weight 107.95 kg November 22, 2024 10:03amBody Szkmmimfrzp41.4 [degF]97.6-99.0August 2024 10:03amHeart Rate72 /dky72-380Wffrmo 12th, 2025 10:03amOxygen saturation by Pulse kdposlvp11 %95-100Augus2024 10:03amBP Woleogce624 mm[Hg]100-140 November 22, 2024 10:03amBP Xrpvwzlxo99 mm[Hg]60-100August 2024 10:03am Thtqoz473.60 kgSept2024 8:42amBody Jtgxuwehzfm68.2 [degF]97.6-99.0 December 21, 2024 8:42amHeart Rate74 /qjp19-027Qjrbrkfcr 10th, 2025 8:42am Respiratory rate16 /sta23-24MlevtdnumDecember 21, 2024 8:42amOxygen saturation by Pulse iojrncbs74 %95-100Sept2024 8:42amBP Gbrccbjr677 mm[Hg]100-140 December 21, 2024 8:42amBP Tdhrrqocx63 mm[Hg]60-100Sept2024 8:29dsUdnsll46 [in_i]December 26, 2024 1:93knJhpwsc927.40 kgSept2024 1:15pmBody Hzfzzmcufrf352 [degF]97.6-99.0Sept2024 1:15pmHeart Rate66 /pni53-938Fznhwdfph 15th, 2025 1:15pmRespiratory rate16 /bzs76-37 December 26, 2024 1:15pmOxygen saturation by Pulse cafjdvyj88 %95-100 December 26, 2024 1:15pmBP Ufjnhvmw120 mm[Hg]100-140September 2024 1:15pmBP Xxfuoohof92 mm[Hg]60-100September 2024 1:15pmInhaled oxygen flow rate4 L/minSeptember 2024 1:70vgZyeodt36 [in_i]December 28, 2024 1:47pm Qbsech182.30 kgSeptember 2024 5:28amBody Qzroswkpvmc18.2 [degF]97.6-99.0 December 31, 2024 11:12amHeart Rate54 /pna04-802Iiifqopui 2024 11:12am Respiratory rate18 /qar63-65Azrjiszvz 2024 11:12amOxygen saturation by Pulse %95-100September 2024 11:12amBP Jvomecox743 mm[Hg]100-140 December 31, 2024 11:12amBP Zlfkbxbmg70 mm[Hg]60-100September 2024 11:12amInhaled oxygen flow rate3 L/minSeptember 2024 11:96cyFerykb87.42 kg January 18, 2025 11:29amBody Jnhahhxyllz47.7 [degF]97.6-99.0Oct2024 11:29amHeart Rate69 /bmm29-467MldjepqJanuary 18, 2025 11:29amRespiratory rate16 /min 12-24January 18, 2025 11:29amOxygen saturation by Pulse dlgxunmw922 %95-100 January 18, 2025 11:29amBP Gdywlxre457 mm[Hg]100-140January 18, 2025 11:29amBP Agpxdmwnt45 mm[Hg]60-100Oct2024 11:90hbNxvysg28.88 kgOctober 2024 9:31amBody Vzphleiyltk89.5 [degF]97.6-99.0Oct2024 9:31amHeart Rate91 /huw39-024Cummhsc 2024 9:31amRespiratory rate20 /web65-79Hdearul 2024 9:31amOxygen saturation by Pulse yfaqplhh12 %95-100October 2024 9:31amBP Soofzcbw951 mm[Hg]100-140October 2024 9:31amBP Uiexmwjro79 mm[Hg]60-100October 2024 9:31amInhaled oxygen flow rate4 L/minOctober 2024 9:32sfJshvfm87 [in_i]November 14, 2024 10:57mhTnpqsm68.88 kgOctober 2024 9:31amBody Ksjgibzkmhj44.2 [degF]97.6-99.0Sept2024 9:11am Heart Rate74 /imu73-726Jrpchvdyk 10th, 2025 9:11amRespiratory rate20 /ggg37-97 December 21, 2024 9:11amOxygen saturation by Pulse kohztmac23 %95-100 December 21, 2024 9:11amBP Wontecol038 mm[Hg]100-140Sept2024 9:11amBP Niehwtebs36 mm[Hg]60-100September 2024 9:11amInhaled oxygen flow rate3 L/minSept2024 9:11am Advance Directives Advance Directive Response Recorded Date/ Time Advance Directives No May 12, 2023 11:11am Insurance Providers Guarantor Alia Barnes Address [address] [facility] [address]Folxgeu Info.Home Phone: Coverage Status Update:2025 Payer Group Member ID Coverage Type Subscriber Relationship to Subscriber Effective Date Expiration Date Medicaid [id number] Hamlin , M Id: [id number] [address] [facility] [address] Home Phone: Email: [email or web address] Id: [id number] Hamlin , M Id: [id number] [address] [facility] [address] Home Phone: Email: [email or web address] Medicaid [id number] Hamlin , M Id: [id number] [address] [facility] [address] Home Phone: Email: [email or web address] Hamlin , M Id: [id number] [address] [facility] [address] Home Phone: Email: [email or web address] PFFS [id number] Hamlin , M Id: [id number] [address] [facility] [address] Home Phone: Email: [email or web address] Encounter Location(s) Arrival/Admit Date Discharge/Departure Date Discharge/Departure Disposition Provider(s) Departed Physician/ Provider Office Visit -[facility] November 22, 2024 11:23am November 22, 2024 11:54am Discharged to home care or self care (routine discharge) AMALIA La Departed Physician/ Provider Office Visit [facility] December 06, 2024 11:11am December 06, 2024 11:22am Discharged to home care or self care (routine discharge) AMALIA La Registered [facility] December 07, 2024 8: 42am [facility] 8:30amSeptember 2024 9:15amDischarged to home care or self care (routine discharge)Alia Sims MDDeparted Emergency- Emergency RoomSeptember 2024 12:59pmSeptember 2024 5:25pmLeft against medical advice or discontinued careNon-patient / [facility] DisSeptember 2024 8:56KERLINE Dunneparted Physician/Provider Office Visit-[facility] AmbulatoryOctober 2024 11:13amOctober 2024 12:32pmDischarged to home care or self care (routine discharge)Alia Simseparted Physician/Provider Office Visit-[facility] AmbulatoryOctober 2024 9:06amOctober 2024 10:37amDischarged to home care or self care (routine discharge)Alia Sims MDRegistered [facility] AcuteOctober 2024 9:59amAAlia Sherman MD Recent Diagnosis Onset Date Admit Date Cancer related pain Unknown November 22, 2024 11:23am Encounter for chemotherapy management Unknown November 22, 2024 11:23am History of iron deficiency anemia Unknown November 22, 2024 11:23am IgG myeloma Unknown November 22 11:23am Pruritic erythematous rash Unknown 2024 11:23am Bipolar 1 disorder Unknown November 22, 2024 11:23am COPD (chronic obstructive pulmonary disease) Unk nown November 22, 2024 11:23am 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 Unknown November 22, 2024 11:23am Hypertension Unknown November 22 11:23am CKD (chronic kidney disease) stage 3, GFR 30-59 ml/min Unknown November 22, 2024 11:23am Morbid obesity with BMI of 45.0-49.9, adult Unkn own November 22, 2024 11:23am Venous stasis dermatitis of both lower extremities Unknown November 22, 2024 11:23am Cancer related pain Unknown December 06, 2024 11:11am Encounter for chemotherapy management Unknown December 06, 2024 11:11am History of iron deficiency anemia Unknown December 06, 2024 11:11am IgG myeloma Unknown December 06 11:11am Pruritic erythematous rash Unknown 2024 11:11am Bipolar 1 disorder Unknown December 06, 2024 11:11am COPD (chronic obstructive pulmonary disease) Unk nown December 06, 2024 11:11am 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 Unknown December 06, 2024 11:11am Hypertension Unknown December 06 11:11am CKD (chronic kidney disease) stage 3, GFR 30-59 ml/min Unknown December 06, 2024 11:11am Morbid obesity with BMI of 45.0-49.9, adult Unkn own December 06, 2024 11:11am Venous stasis dermatitis of both lower extremities Unknown December 06, 2024 11:11am Cancer related pain Unknown December 212024 8:30am Encounter for chemotherapy management Unknown December 21, 2024 8:30am Fever of unknown origin (FUO) Unknown Se ptember 2024 8:30am History of iron deficiency anemia Unknown December 21, 2024 8:30am IgG myeloma Unknown December 21, 2024 8:30am Pruritic erythematous rash Unknown Septe 2024 8:30am Bipolar 1 disorder Unknown December 8:30am COPD (chronic obstructive pulmonary disease) Unk nown December 21, 2024 8:30am 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 Unknown December 21, 2024 8:30am Hypertension Unknown December 21, 2024 8:30am CKD (chronic kidney disease) stage 3, GFR 30-59 ml/min Unknown December 21, 2024 8:30am Morbid obesity with BMI of 45.0-49.9, adult Unkn own December 21, 2024 8:30am Venous stasis dermatitis of both lower extremities Unknown December 21, 2024 8:30am Acute kidney injury superimposed on CKD Unknown December 27, 2024 8:56am BMI 40.0-44.9, adult Unknown December 122024 8:56am Encounter for chemotherapy management Unknown December 27, 2024 8:56am Hypokalemia Unknown December 27, 2024 8:56am IgG myeloma Unknown December 27, 2024 8:56am Neutropenia Unknown December 27, 2024 8:56am Neutropenic fever Unknown December 8:56am On home oxygen therapy Unknown December 27, 2024 8:56am Pneumonia Unknown December 27, 2024 8:56am Stage 3b chronic kidney disease Unknown December 27, 2024 8:56am Thrombocytopenia Unknown December 27, 2024 8:56am Type 2 diabetes mellitus wit h diabetic neuropathy, unspecified Unknown December 27, 2024 8:56am Bipolar 1 disorder Unknown December 8:56am COPD (chronic obstructive pulmonary disease) Unk nown December 27, 2024 8:56am Hypertension Unknown December 27, 2024 8:56am TANYA (obstructive sleep apnea) Unknown Se ptember 2024 8:56am Acute ITP Unknown December 27, 2024 8:56am Cancer related pain Unknown January 18, 2025 11:13am Encounter for chemotherapy management Unknown January 18, 2025 11:13am History of iron deficiency anemia Unknown January 18, 2025 11:13am IgG myeloma Unknown January 18 11:13am Pruritic erythematous rash Unknown 2024 11:13am Thrombocytopenia Unknown January 18 11:13am Bipolar 1 disorder Unknown January 18, 2025 11:13am COPD (chronic obstructive pulmonary disease) Unk nown January 18, 2025 11:13am 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 Unknown January 18, 2025 11:13am Hypertension Unknown January 18 11:13am CKD (chronic kidney disease) stage 3, GFR 30-59 ml/min Unknown January 18, 2025 11:13am Morbid obesity with BMI of 45.0-49.9, adult Unkn own January 18, 2025 11:13am Venous stasis dermatitis of both lower extremities Unknown January 18, 2025 11:13am IgG myeloma Unknown February 08 9:06am COPD (chronic obstructive pulmonary disease) Unk nown February 08, 2025 9:59am 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 Unknown February 08, 2025 9:59am 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) Unknown January 9:59am CKD (chronic kidney disease) stage 3, GFR 30-59 ml/min Unknown February 08, 2025 9:59am Iron deficiency anemia Unknown January 122024 9:59am Bipolar disorder with depression Unknown February 08, 2025 9:59am Diabetes Unknown February 08 9:59am Morbid obesity Unknown February 08 9:59am Assessments Diagnosis Onset Date Resolution Status Admit Date Cancer related pain acuteAugust 2024 11:23amEncounter for chemotherapy managementacuteAugust 2024 11:23amHistory of iron deficiency anemiaacuteAugust 2024 11:23amIgG myelomaacuteAugust 2024 11:23amPruritic erythematous rashacute November 22, 2024 11:23amBipolar 1 disorderchronicAugust 2024 11:23amCOPD (chronic obstructive pulmonary disease)chronicAugust 2024 11:23amDiabetic neuropathy associated with diabetes mellitus due to underlyingchronicAugu2024 11:23amHypertensionchronicAugust 2024 11:23amCKD (chronic kidney disease) stage 3, GFR 30-59 ml/minresolvedAugust 2024 11:23amMorbid obesity with BMI of 45.0-49.9, adultresolvedAugust 2024 11:23amVenous stasis dermatitis of both lower extremitiesresolvedAugust 2024 11:23am Cancer related painacuteAugust 2024 11:11amEncounter for chemotherapy managementacuteAugust 2024 11:11amHistory of iron deficiency anemiaacute December 06, 2024 11:11amIgG myelomaacuteAugust 2024 11:11amPruritic erythematous rashacuteAugust 2024 11:11amBipolar 1 disorderchronicAugust 2024 11:11amCOPD (chronic obstructive pulmonary disease)chronicAugust 2024 11:11amDiabetic neuropathy associated with diabetes mellitus due to underlyingchronicAugust 2024 11:11amHypertensionchronicAugust 2024 11:11amCKD (chronic kidney disease) stage 3, GFR 30-59 ml/minresolvedAugust 2024 11:11amMorbid obesity with BMI of 45.0-49.9, adultresolvedAugust 2024 11:11amVenous stasis dermatitis of both lower extremitiesresolved December 06, 2024 11:11amCancer related painacuteSeptember 2024 8:30am Encounter for chemotherapy managementacuteSeptember 2024 8:30amFever of unknown origin (FUO)acuteSeptember 2024 8:30amHistory of iron deficiency anemiaacuteSeptember 2024 8:30amIgG myelomaacuteSeptember 2024 8:30amPruritic erythematous rashacuteSeptember 2024 8:30amBipolar 1 disorderchronicSeptember 2024 8:30amCOPD (chronic obstructive pulmonary disease)chronicSeptember 2024 8:30amDiabetic neuropathy associated with diabetes mellitus due to underlyingchronicSeptember 2024 8:30am HypertensionchronicSeptember 2024 8:30amCKD (chronic kidney disease) stage 3, GFR 30-59 ml/minresolvedSeptember 2024 8:30amMorbid obesity with BMI of 45.0-49.9, adultresolvedSeptember 2024 8:30amVenous stasis dermatitis of both lower extremitiesresolvedSeptember 2024 8:30amAcute kidney injury superimposed on CKDacuteSept2024 8:56amBMI 40.0-44.9, adultacute December 27, 2024 8:56amEncounter for chemotherapy managementacuteSept2024 8:56amHypokalemiaacuteSept2024 8:56amIgG myelomaacute December 27, 2024 8:56amNeutropeniaacuteSeptember 2024 8:56am Neutropenic feveracuteSept2024 8:56amOn home oxygen therapyacute December 27, 2024 8:56amPneumoniaacuteSept2024 8:56amStage 3b chronic kidney diseaseacuteSept[facility] [place] 20[facility] 8:56amThrombocytopeniaacute December 27, 2024 8:56amType 2 diabetes mellitus with diabetic neuropathy, unspecifiedacuteSept2024 8:56amBipolar 1 disorderchronicSeptember 2024 8:56amCOPD (chronic obstructive pulmonary disease)chronicptember 2024 8:56amHypertensionchronicSeptember 2024 8:56amOSA (obstructive sleep apnea)chronicpt2024 8:56amAcute ITPdeletedptember 2024 8:56amCancer related painacuteOctober 2024 11:13amEncounter for chemotherapy managementacuteOct2024 11:13amHistory of iron deficiency anemiaacuteOctober 2024 11:13amIgG myelomaacuteOctober 2024 11:13am Pruritic erythematous rashacuteOctober 2024 11:13amThrombocytopeniaacute January 18, 2025 11:13amBipolar 1 disorderchronicOctober 2024 11:13amCOPD (chronic obstructive pulmonary disease)chronicOctober 2024 11:13amDiabetic neuropathy associated with diabetes mellitus due to underlyingchronicOctober 2024 11:13amHypertensionchronicOctober 2024 11:13amCKD (chronic kidney disease) stage 3, GFR 30-59 ml/minresolvedOctober 2024 11:13amMorbid obesity with BMI of 45.0-49.9, adultresolvedOctober 2024 11:13amVenous stasis dermatitis of both lower extremitiesresolvedOctober 2024 11:13amIgG myelomaacuteOctober 2024 9:06amCOPD (chronic obstructive pulmonary disease)chronicOctober 2024 9:59amDegenerative joint disease of cervical and lumbar spinechronicOctober 2024 9: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)chronicOctober 2024 9:59amCKD (chronic kidney disease) stage 3, GFR 30-59 ml/minresolvedOctober 2024 9:59amIron deficiency anemiaresolvedOctober 2024 9:59amBipolar disorder with depressioninactiveOctober 2024 9:59amDiabetesinactiveOctober 2024 9:59amMorbid obesityinactiveOctober 2024 9:59am Plan of Treatment Author Sugey Cummins [facility] 2024 4:21pm10/27/2024: We reviewed recommendations of [facility] malignant hematology tumor board: Due to meeting criteria for myeloma by 15% plasma cells in marrow and diffuse uptake on PET/CT with peripheral neuropathy we we will start active therapy in the next few weeks. Baseline echocardiogram for possible Kyprolis. Reviewed and signed informed consent to start daratumumab, Revlimid, dexamethasone within the next few weeks. Will return for oral chemo visit after enrollment on RevAssist and we will start therapy after prior authorization obtained. 11/22/2024: Tolerating treatment with daratumumab, lenalidomide, and dexamethasone well. This initiated on 11/14. Replace calcium and check magnesium. 12/06/2024: Discussed with Dr. Bills. Ok for treatment today. Will follow up closely with Dr. Bills in a few weeks Now 64-year old patient who reports chronic fatigue, progressive increase in weight and she is noted to have a BMI of 49. She has mild anemia with most recent hemoglobin 11.6, elevated erythrocyte sedimentation rate of 65, most recent renal function panel showed a creatinine of 1.64 correlating to EGFR, xfh-Ypzkbww-Yfeqcztx 32. This has not significantly changed over the last year but is lower than prior labs from 3039-3219. Most recent calcium within normal limits and [...] urine immunofixation which showed no monoclonality, and kappa/lambda light chain analysis with mild elevation of ratio. In addition she was noted to have elevated beta-2 microglobulin, although this could also [...] or failure to respond, we will arrange parenteral iron therapy. Next follow-up with me will be [...] now has normal iron stores but has persistent fatigue. We will continue follow-up with primary care and neurology. Next follow-up for monoclonal gammopathy and iron deficiency in 6 months with appropriate labs as noted above. Low complexity 25-minute follow-up visit. 01/29/2023: Over the past 6 months she has noted increased hip pain and follow- up monoclonal gammopathy labs show increased IgG level and kappa/lambda ratio about double that of 6 months ago. Hemoglobin is normal with normal iron saturation 23% after prior parenteral iron with Venofer. Creatinine is slightly improved to 1.3 with normal calcium level. It [...] marrow biopsy at interventional radiology and will follow-up with me after bone marrow biopsy and repeat skeletal survey in about 3 to 4 weeks to review results and further plan of care. This is of moderate complexity 35- minute follow-up for complex medical testing. 03/04/2023: Stable pain symptoms. No progression from MGUS on 02/12/2023 bone marrow biopsy (2-5% plasma cells, FISH with 10% 13q deletion/monosomy 13, normal cytogenetics). Skeletal survey without new bone lesions. I recommended orthopedic surgery evaluation for back and hip pain. Continue followup with peripheral neuropathy with neurology. Next followup with MGUS labs (CBC, CMP, free kappa/lambda light chains and immunoglobulins IgG/IgA/IgM with serum protein electrophoresis) in 6 months, sooner if new symptoms arise. Moderate complexity 30 minute followup to review complex testing/bone marrow biopsy results. 09/01/2022: Kelsea is here for 6-month follow-up of MGUS. No change in chronic neuropathy that may be more related to diabetes mellitus. We performed bone marrow biopsy 6 months ago showing 2 to 5% plasma cells and no lesions were noted on skeletal survey. She continues to have normal hemoglobin, relatively stable renal function with normal calcium. She continues follow-up with neurology for her peripheral neuropathy. She does have mild increase of her M spike to 0.8 g/dL, but stable IgG level and kappa/lambda light chain ratio was not reported today. At this point there is no indication for repeating bone marrow biopsy or active therapy for monoclonal gammopathy. We will continue to follow every 6 months and perform MGUS labs (CBC, CMP, free kappa/lambda light chains and immunoglobulins IgG/IgA/IgM with serum protein electrophoresis) with skeletal survey prior to next follow-up, sooner as needed. Moderate complexity 35-minute follow-up to review complex medical testing, symptoms, and comorbidities. 03/02/2024: Kelsea presents for 6-month follow-up of MGUS. Stable chronic neuropathy that is likely due to diabetes mellitus. No recent infections or new concerning symptoms although she does continue to have persistent lower extremity rash. She did not note any improvement with medication prescribed by dermatology. She has had repeated bone marrow biopsy showing less than 5% plasma cells and her annual skeletal survey shows no new lesions. Slightly higher M spike at 0.9 but stable quantitative immunoglobulins and kappa/lambda light chain ratio. No indication for bone marrow biopsy to be repeated at this time. Continue every 6-month follow-up with MGUS labs (CBC, CMP, free kappa/lambda light chains and immunoglobulins IgG/IgA/IgM with serum protein electrophoresis) and every 12 months skeletal survey, sooner if new symptoms arise. Moderate complexity 30-minute follow-up of complex medical testing, symptoms, and comorbidities. 08/31/2024: Kelsea is here for 6 month followup of MGUS--worsening lumbar pain last 2 months with some weakness and mild swelling right hand as noted above. Stable hemoglobin and stage 3 CKD, normal calcium, but concerning trend of rising M-spike, IgG, and now kappa/lambda light chain ratio greater than 8. She agrees to IR referral for repeat bone marrow biopsy, whole body PET/CT, and review of results in about 3-4 weeks when results available--if new uptake in cervical spine, we may order cervical MRI for right hand weakness symptoms. This is a moderate complexity visit over 35 minutes. 10/06/2024: Kelsea presents for followup of 09/19/2024 bone marrow biopsy and subsequent PET/CT which shows low level involvement (10-15%) IgG kappa plasma cells in marrow, FISH with monosomy 13, and no evidence of amyloid deposition, but PET/CT shows extensive FDG avidity within the bones. She has increasing pain, moderate renal insufficiency, no anemia or hypercalcemia, and persistent neuropathy. Due to this discordant result between bone marrow and PET/CT. I will present her case to Malignant Hematology tumor board next week regarding indications for treatment and potential regimen given her baseline neuropathy. F/u results in 2-3 weeks. High complexity 45 minute followup to followup PET/CT, bone marrow biopsy, and tumor board presentation. 10/27/2024: No change in clinical history over the last 3 weeks since last visit. [facility] Malignant Hematology Tumor Board agrees with active therapy based on review of bone marrow biopsy now meeting criteria for active IgG kappa myeloma (15%), with diffuse uptake on PET/CT and peripheral neuropathy. Stable moderate renal insufficiency and O2 dependent COPD therefore she is not a candidate for stem cell transplantation referral. Today we reviewed and signed informed consent for daratumumab, Revlimid, and dexamethasone and will contact her when we have obtained prior authorization for this regimen. We will set her up for rev assist program for lenalidomide she received chemotherapy counseling today. We will obtain baseline echocardiogram as there was a recent presentation at [facility] 2024 showing benefit of 4 drug regimen with addition of carfilzomib. I will discuss this with malignant hematology at [facility] malignant hematology and we may add this in if Darzalex, Revlimid, dexamethasone is well-tolerated. She will follow-up with ma cycle 1 week 3 of therapy for toxicity visit. High complexity 45-minute follow- up to review [facility] Malignant Hematology Tumor Board recommendations and informed consent for daratumumab, Revlimid, dexamethasone therapy. 11/22/2024 Tolerating daratumumab, lenalidomide, and dexamethasone well. Continue working with Dr. Aguilar for sugar control. Improving numbers on review. Continue efforts. Discussed with Dr. Bills who will consider adding on carfilzomib if patient continues to tolerate current regime well. 12/06/2024: Continue current treatments after discussion with Dr. Bills. Will do a close follow up. She has known diabetes and notes that blood sugars have been under stable control. This also may be a contributing factor for her neuropathy, however increasing symptoms with increased M-spike and kappa light chain were concerning for possible progression to myeloma. We reviewed her bone marrow and PET/CT review at [facility] Hematology tumor board 10/20/2024 regarding indications for treatment and potential regimen. Avoid bortezomib with regimen due to baseline peripheral neuropathy. 11/22/2024: Continue working with Dr. Aguilar for sugar issues. Chronic stable CKD stage IIIb. Elevated beta-2 microglobulin is likely due to her chronic kidney disease. Plan to repeat it prior to initiation of Darzalex, Revlimid, dexamethasone regimen. At last visit she noted worsening hip and pelvic pain which have since stabilized. She had a prior lumbar MRI negative for myelomatous lesions. Most recent bone marrow biopsy and skeletal survey reviewed today did not show any concerning lytic lesions. She was referred for orthopedic evaluation. --10/06/2024: Multiple areas of bone uptake consistent with progression to myeloma on whole body PET/CT--will consult palliative medicine to assist with pain control upon start of myeloma therapy. Chronic O2 dependence, currently 4 L nasal cannula. No recent infections or clinical changes. The patient previously saw dermatology for pruritic erythematous rash over the past 6 to 9 months which has not improved with medication and has not fully resolved. She has multiple areas of excoriation when this has not responded to topical triamcinolone cream. Continue as needed follow-up with dermatology and primary care. The patient has nodular erythematous areas over the bilateral anterior shins that she was told by her primary care may be venous insufficiency changes. Given her multiple medical issues, this may be erythema nodosum and I have not seen notes from dermatology. Consider biopsy if indicated for ongoing pruritic rash. Continue follow-up with primary care. She continues to have elevated blood pressure. Continue follow-up with primary care regarding her elevated blood pressures. 04/23/2022: No improvement in symptoms or iron [...] iron studies only if significant worsening anemia. 03/04/2023: At least trace iron stores on 02/12/2023 bone marrow biopsy. Continue same recommendations as above. 09/02/2023: Absent iron stores on bone marrow biopsy with iron saturation low at 15%. Given her chronic kidney disease and neuropathy we added ferrous sulfate 1 tablet daily. Currently iron saturation is stable at 16% and she is no longer taking oral iron. Will defer to nephrology 08/31/2024: Hemoglobin normal, iron sat 15.7%, normal ferritin. Continue observation--adequate iron bone marrow stores on biopsy. Morbid obesity, continue follow-up with primary physician. No recent mental health issues on current medications. Author Sugey Cummins [facility] 2024 2:30pm10/27/2024: We reviewed recommendations of [facility] malignant hematology tumor board: Due to meeting criteria for myeloma by 15% plasma cells in marrow and diffuse uptake on PET/CT with peripheral neuropathy we we will start active therapy in the next few weeks. Baseline echocardiogram for possible Kyprolis. Reviewed and signed informed consent to start daratumumab, Revlimid, dexamethasone within the next few weeks. Will return for oral chemo visit after enrollment on [facility] and we will start therapy after prior authorization obtained. 11/22/2024: Tolerating treatment with daratumumab, lenalidomide, and dexamethasone well. This initiated on 11/14. Replace calcium and check magnesium. Now 64-year old patient who reports chronic fatigue, progressive increase in weight and she is noted to have a BMI of 49. She has mild anemia with most recent hemoglobin 11.6, elevated erythrocyte sedimentation rate of 65, most recent renal function panel showed a creatinine of 1.64 correlating to EGFR, [id number] 32. This has not significantly changed over the last year but is lower than prior labs from 3290-4694. Most recent calcium within normal limits and [...] urine immunofixation which showed no monoclonality, and kappa/lambda light chain analysis with mild elevation of ratio. In addition she was noted to have elevated beta-2 microglobulin, although this could also [...] or failure to respond, we will arrange parenteral iron therapy. Next follow-up with me will be [...] now has normal iron stores but has persistent fatigue. We will continue follow-up with primary care and neurology. Next follow-up for monoclonal gammopathy and iron deficiency in 6 months with appropriate labs as noted above. Low complexity 25-minute follow-up visit. 01/29/2023: Over the past 6 months she has noted increased hip pain and follow- up monoclonal gammopathy labs show increased IgG level and kappa/lambda ratio about double that of 6 months ago. Hemoglobin is normal with normal iron saturation 23% after prior parenteral iron with Venofer. Creatinine is slightly improved to 1.3 with normal calcium level. It [...] marrow biopsy at interventional radiology and will follow-up with me after bone marrow biopsy and repeat skeletal survey in about 3 to 4 weeks to review results and further plan of care. This is of moderate complexity 35- minute follow-up for complex medical testing. 03/04/2023: Stable pain symptoms. No progression from MGUS on 02/12/2023 bone marrow biopsy (2-5% plasma cells, FISH with 10% 13q deletion/monosomy 13, normal cytogenetics). Skeletal survey without new bone lesions. I recommended orthopedic surgery evaluation for back and hip pain. Continue followup with peripheral neuropathy with neurology. Next followup with MGUS labs (CBC, CMP, free kappa/lambda light chains and immunoglobulins IgG/IgA/IgM with serum protein electrophoresis) in 6 months, sooner if new symptoms arise. Moderate complexity 30 minute followup to review complex testing/bone marrow biopsy results. 09/01/2022: Kelsea is here for 6-month follow-up of MGUS. No change in chronic neuropathy that may be more related to diabetes mellitus. We performed bone marrow biopsy 6 months ago showing 2 to 5% plasma cells and no lesions were noted on skeletal survey. She continues to have normal hemoglobin, relatively stable renal function with normal calcium. She continues follow-up with neurology for her peripheral neuropathy. She does have mild increase of her M spike to 0.8 g/dL, but stable IgG level and kappa/lambda light chain ratio was not reported today. At this point there is no indication for repeating bone marrow biopsy or active therapy for monoclonal gammopathy. We will continue to follow every 6 months and perform MGUS labs (CBC, CMP, free kappa/lambda light chains and immunoglobulins IgG/IgA/IgM with serum protein electrophoresis) with skeletal survey prior to next follow-up, sooner as needed. Moderate complexity 35-minute follow-up to review complex medical testing, symptoms, and comorbidities. 03/02/2024: Kelsea presents for 6-month follow-up of MGUS. Stable chronic neuropathy that is likely due to diabetes mellitus. No recent infections or new concerning symptoms although she does continue to have persistent lower extremity rash. She did not note any improvement with medication prescribed by dermatology. She has had repeated bone marrow biopsy showing less than 5% plasma cells and her annual skeletal survey shows no new lesions. Slightly higher M spike at 0.9 but stable quantitative immunoglobulins and kappa/lambda light chain ratio. No indication for bone marrow biopsy to be repeated at this time. Continue every 6-month follow-up with MGUS labs (CBC, CMP, free kappa/lambda light chains and immunoglobulins IgG/IgA/IgM with serum protein electrophoresis) and every 12 months skeletal survey, sooner if new symptoms arise. Moderate complexity 30-minute follow-up of complex medical testing, symptoms, and comorbidities. 08/31/2024: Kelsea is here for 6 month followup of MGUS--worsening lumbar pain last 2 months with some weakness and mild swelling right hand as noted above. Stable hemoglobin and stage 3 CKD, normal calcium, but concerning trend of rising M-spike, IgG, and now kappa/lambda light chain ratio greater than 8. She agrees to IR referral for repeat bone marrow biopsy, whole body PET/CT, and review of results in about 3-4 weeks when results available--if new uptake in cervical spine, we may order cervical MRI for right hand weakness symptoms. This is a moderate complexity visit over 35 minutes. 10/06/2024: Kelsea presents for followup of 09/19/2024 bone marrow biopsy and subsequent PET/CT which shows low level involvement (10-15%) IgG kappa plasma cells in marrow, FISH with monosomy 13, and no evidence of amyloid deposition, but PET/CT shows extensive FDG avidity within the bones. She has increasing pain, moderate renal insufficiency, no anemia or hypercalcemia, and persistent neuropathy. Due to this discordant result between bone marrow and PET/CT. I will present her case to Malignant Hematology tumor board next week regarding indications for treatment and potential regimen given her baseline neuropathy. F/u results in 2-3 weeks. High complexity 45 minute followup to followup PET/CT, bone marrow biopsy, and tumor board presentation. 10/27/2024: No change in clinical history over the last 3 weeks since last visit. [facility] Malignant Hematology Tumor Board agrees with active therapy based on review of bone marrow biopsy now meeting criteria for active IgG kappa myeloma (15%), with diffuse uptake on PET/CT and peripheral neuropathy. Stable moderate renal insufficiency and O2 dependent COPD therefore she is not a candidate for stem cell transplantation referral. Today we reviewed and signed informed consent for daratumumab, Revlimid, and dexamethasone and will contact her when we have obtained prior authorization for this regimen. We will set her up for rev assist program for lenalidomide she received chemotherapy counseling today. We will obtain baseline echocardiogram as there was a recent presentation at [facility] 2024 showing benefit of 4 drug regimen with addition of carfilzomib. I will discuss this with malignant hematology at [facility] malignant hematology and we may add this in if Darzalex, Revlimid, dexamethasone is well-tolerated. She will follow-up with ma cycle 1 week 3 of therapy for toxicity visit. High complexity 45-minute follow- up to review [facility] Malignant Hematology Tumor Board recommendations and informed consent for daratumumab, Revlimid, dexamethasone therapy. 11/22/2024 Tolerating daratumumab, lenalidomide, and dexamethasone well. Continue working with Dr. Aguilar for sugar control. Improving numbers on review. Continue efforts. Discussed with Dr. Bills who will consider adding on carfilzomib if patient continues to tolerate current regime well. She has known diabetes and notes that blood sugars have been under stable control. This also may be a contributing factor for her neuropathy, however increasing symptoms with increased M-spike and kappa light chain were concerning for possible progression to myeloma. We reviewed her bone marrow and PET/CT review at [facility] Hematology tumor board 10/20/2024 regarding indications for treatment and potential regimen. Avoid bortezomib with regimen due to baseline peripheral neuropathy. 11/22/2024: Continue working with Dr. Aguilar for sugar issues. Chronic stable CKD stage IIIb. Elevated beta-2 microglobulin is likely due to her chronic kidney disease. Plan to repeat it prior to initiation of Darzalex, Revlimid, dexamethasone regimen. At last visit she noted worsening hip and pelvic pain which have since stabilized. She had a prior lumbar MRI negative for myelomatous lesions. Most recent bone marrow biopsy and skeletal survey reviewed today did not show any concerning lytic lesions. She was referred for orthopedic evaluation. --10/06/2024: Multiple areas of bone uptake consistent with progression to myeloma on whole body PET/CT--will consult palliative medicine to assist with pain control upon start of myeloma therapy. Chronic O2 dependence, currently 4 L nasal cannula. No recent infections or clinical changes. The patient previously saw dermatology for pruritic erythematous rash over the past 6 to 9 months which has not improved with medication and has not fully resolved. She has multiple areas of excoriation when this has not responded to topical triamcinolone cream. Continue as needed follow-up with dermatology and primary care. The patient has nodular erythematous areas over the bilateral anterior shins that she was told by her primary care may be venous insufficiency changes. Given her multiple medical issues, this may be erythema nodosum and I have not seen notes from dermatology. Consider biopsy if indicated for ongoing pruritic rash. Continue follow-up with primary care. She continues to have elevated blood pressure. Continue follow-up with primary care regarding her elevated blood pressures. 04/23/2022: No improvement in symptoms or iron [...] iron studies only if significant worsening anemia. 03/04/2023: At least trace iron stores on 02/12/2023 bone marrow biopsy. Continue same recommendations as above. 09/02/2023: Absent iron stores on bone marrow biopsy with iron saturation low at 15%. Given her chronic kidney disease and neuropathy we added ferrous sulfate 1 tablet daily. Currently iron saturation is stable at 16% and she is no longer taking oral iron. Will defer to nephrology 08/31/2024: Hemoglobin normal, iron sat 15.7%, normal ferritin. Continue observation--adequate iron bone marrow stores on biopsy. Morbid obesity, continue follow-up with primary physician. No recent mental health issues on current medications. Will add 600mg of calcium daily for 4 days then stop Author Roxane Bills [facility] HospitalAuthoredSeptember 2024 9:50am10/27/2024: We reviewed recommendations of [facility] malignant hematology tumor board: Due to meeting criteria for myeloma by 15% plasma cells in marrow and diffuse uptake on PET/CT with peripheral neuropathy we we will start active therapy in the next few weeks. Baseline echocardiogram for possible Kyprolis. Reviewed and signed informed consent to start daratumumab, Revlimid, dexamethasone within the next few weeks. Will return for oral chemo visit after enrollment on [facility] and we will start therapy after prior authorization obtained. 11/22/2024: Tolerating treatment with daratumumab, lenalidomide, and dexamethasone well. This initiated on 11/14. Replace calcium and check magnesium. 12/06/2024: Discussed with Dr. Bills. Ok for treatment today. Will follow up closely with Dr. Bills in a few weeks 12/21/2024: Patient still has had intermittent fevers of unclear etiology. Adding acyclovir 400 mg twice daily with infectious workup. CBC normal and responding disease. Continue current dosing of daratumumab, lenalidomide, and dexamethasone. Now 64-year old patient who reports chronic fatigue, progressive increase in weight and she is noted to have a BMI of 49. She has mild anemia with most recent hemoglobin 11.6, elevated erythrocyte sedimentation rate of 65, most recent renal function panel showed a creatinine of 1.64 correlating to EGFR, [id number] 32. This has not significantly changed over the last year but is lower than prior labs from [id number]. Most recent calcium within normal limits and [...] urine immunofixation which showed no monoclonality, and kappa/lambda light chain analysis with mild elevation of ratio. In addition she was noted to have elevated beta-2 microglobulin, although this could also [...] or failure to respond, we will arrange parenteral iron therapy. Next follow-up with me will be [...] now has normal iron stores but has persistent fatigue. We will continue follow-up with primary care and neurology. Next follow-up for monoclonal gammopathy and iron deficiency in 6 months with appropriate labs as noted above. Low complexity 25-minute follow-up visit. 01/29/2023: Over the past 6 months she has noted increased hip pain and follow- up monoclonal gammopathy labs show increased IgG level and kappa/lambda ratio about double that of 6 months ago. Hemoglobin is normal with normal iron saturation 23% after prior parenteral iron with Venofer. Creatinine is slightly improved to 1.3 with normal calcium level. It [...] marrow biopsy at interventional radiology and will follow-up with me after bone marrow biopsy and repeat skeletal survey in about 3 to 4 weeks to review results and further plan of care. This is of moderate complexity 35- minute follow-up for complex medical testing. 03/04/2023: Stable pain symptoms. No progression from MGUS on 02/12/2023 bone marrow biopsy (2-5% plasma cells, FISH with 10% 13q deletion/monosomy 13, normal cytogenetics). Skeletal survey without new bone lesions. I recommended orthopedic surgery evaluation for back and hip pain. Continue followup with peripheral neuropathy with neurology. Next followup with MGUS labs (CBC, CMP, free kappa/lambda light chains and immunoglobulins IgG/IgA/IgM with serum protein electrophoresis) in 6 months, sooner if new symptoms arise. Moderate complexity 30 minute followup to review complex testing/bone marrow biopsy results. 09/01/2022: Kelsea is here for 6-month follow-up of MGUS. No change in chronic neuropathy that may be more related to diabetes mellitus. We performed bone marrow biopsy 6 months ago showing 2 to 5% plasma cells and no lesions were noted on skeletal survey. She continues to have normal hemoglobin, relatively stable renal function with normal calcium. She continues follow-up with neurology for her peripheral neuropathy. She does have mild increase of her M spike to 0.8 g/dL, but stable IgG level and kappa/lambda light chain ratio was not reported today. At this point there is no indication for repeating bone marrow biopsy or active therapy for monoclonal gammopathy. We will continue to follow every 6 months and perform MGUS labs (CBC, CMP, free kappa/lambda light chains and immunoglobulins IgG/IgA/IgM with serum protein electrophoresis) with skeletal survey prior to next follow-up, sooner as needed. Moderate complexity 35-minute follow-up to review complex medical testing, symptoms, and comorbidities. 03/02/2024: Kelsea presents for 6-month follow-up of MGUS. Stable chronic neuropathy that is likely due to diabetes mellitus. No recent infections or new concerning symptoms although she does continue to have persistent lower extremity rash. She did not note any improvement with medication prescribed by dermatology. She has had repeated bone marrow biopsy showing less than 5% plasma cells and her annual skeletal survey shows no new lesions. Slightly higher M spike at 0.9 but stable quantitative immunoglobulins and kappa/lambda light chain ratio. No indication for bone marrow biopsy to be repeated at this time. Continue every 6-month follow-up with MGUS labs (CBC, CMP, free kappa/lambda light chains and immunoglobulins IgG/IgA/IgM with serum protein electrophoresis) and every 12 months skeletal survey, sooner if new symptoms arise. Moderate complexity 30-minute follow-up of complex medical testing, symptoms, and comorbidities. 08/31/2024: Kelsea is here for 6 month followup of MGUS--worsening lumbar pain last 2 months with some weakness and mild swelling right hand as noted above. Stable hemoglobin and stage 3 CKD, normal calcium, but concerning trend of rising M-spike, IgG, and now kappa/lambda light chain ratio greater than 8. She agrees to IR referral for repeat bone marrow biopsy, whole body PET/CT, and review of results in about 3-4 weeks when results available--if new uptake in cervical spine, we may order cervical MRI for right hand weakness symptoms. This is a moderate complexity visit over 35 minutes. 10/06/2024: Kelsea presents for followup of 09/19/2024 bone marrow biopsy and subsequent PET/CT which shows low level involvement (10-15%) IgG kappa plasma cells in marrow, FISH with monosomy 13, and no evidence of amyloid deposition, but PET/CT shows extensive FDG avidity within the bones. She has increasing pain, moderate renal insufficiency, no anemia or hypercalcemia, and persistent neuropathy. Due to this discordant result between bone marrow and PET/CT. I will present her case to Malignant Hematology tumor board next week regarding indications for treatment and potential regimen given her baseline neuropathy. F/u results in 2-3 weeks. High complexity 45 minute followup to followup PET/CT, bone marrow biopsy, and tumor board presentation. 10/27/2024: No change in clinical history over the last 3 weeks since last visit. [facility] Malignant Hematology Tumor Board agrees with active therapy based on review of bone marrow biopsy now meeting criteria for active IgG kappa myeloma (15%), with diffuse uptake on PET/CT and peripheral neuropathy. Stable moderate renal insufficiency and O2 dependent COPD therefore she is not a candidate for stem cell transplantation referral. Today we reviewed and signed informed consent for daratumumab, Revlimid, and dexamethasone and will contact her when we have obtained prior authorization for this regimen. We will set her up for rev assist program for lenalidomide she received chemotherapy counseling today. We will obtain baseline echocardiogram as there was a recent presentation at [facility] 2024 showing benefit of 4 drug regimen with addition of carfilzomib. I will discuss this with malignant hematology at [facility] malignant hematology and we may add this in if Darzalex, Revlimid, dexamethasone is well-tolerated. She will follow-up with ma cycle 1 week 3 of therapy for toxicity visit. High complexity 45-minute follow- up to review [facility] Malignant Hematology Tumor Board recommendations and informed consent for daratumumab, Revlimid, dexamethasone therapy. 11/22/2024 Tolerating daratumumab, lenalidomide, and dexamethasone well. Continue working with Dr. Aguilar for sugar control. Improving numbers on review. Continue efforts. Discussed with Dr. Bills who will consider adding on carfilzomib if patient continues to tolerate current regimen well. 12/06/2024: Continue current treatments after discussion with Dr. Bills. Will do a close follow up. 12/21/2024: Discussion of recent fevers up to 102 without infectious workup. Starting prophylactic acyclovir and will send blood cultures x 2, chest x-ray, urinalysis with culture and contact with results. Okay to continue current dosing of lenalidomide with daratumumab and dexamethasone. Otherwise responding by M spike and kappa/lambda light chain ratio without cytopenias, stage III chronic kidney disease mildly worse on labs today, LFTs downtrending. Will continue to follow closely on therapy with next follow-up in 6 weeks, sooner if new issues arise. Moderate complexity 35-minute follow-up. She has known diabetes and notes that blood sugars have been under stable control. This also may be a contributing factor for her neuropathy, however increasing symptoms with increased M-spike and kappa light chain were concerning for possible progression to myeloma. We reviewed her bone marrow and PET/CT review at [facility] Hematology tumor board 10/20/2024 regarding indications for treatment and potential regimen. Avoid bortezomib with regimen due to baseline peripheral neuropathy. 11/22/2024: Continue working with Dr. Aguilar for sugar issues. 12/21/2024: Most recent glucose is down to 168 after adjustment of medications by Dr. Aguilar. Continue to follow. Chronic stable CKD stage IIIb. Elevated beta-2 microglobulin is likely due to her chronic kidney disease. Plan to repeat it after 90% response of monoclonal labs on Darzalex, Revlimid, dexamethasone regimen. At last visit she noted worsening hip and pelvic pain which have since stabilized. She had a prior lumbar MRI negative for myelomatous lesions. Most recent bone marrow biopsy and skeletal survey reviewed today did not show any concerning lytic lesions. She was referred for orthopedic evaluation. --10/06/2024: Multiple areas of bone uptake consistent with progression to myeloma on whole body PET/CT--will consult palliative medicine to assist with pain control upon start of myeloma therapy. -- 12/21/2024: Patient notes recent increase of back and pelvis pain despite improvement of myeloma markers. This may be related to degenerative disease but will defer her PET/CT until March 2025 unless she has increased frequency of requiring hydrocodone or other pain meds. Chronic O2 dependence, currently 3-5 L nasal cannula. No recent infections or clinical changes (other than FUO workup above). The patient previously saw dermatology for pruritic erythematous rash over the past 6 to 9 months which has not improved with medication and has not fully resolved. She has multiple areas of excoriation when this has not responded to topical triamcinolone cream. Continue as needed follow-up with dermatology and primary care. The patient has nodular erythematous areas over the bilateral anterior shins that she was told by her primary care may be venous insufficiency changes. Given her multiple medical issues, this may be erythema nodosum and I have not seen notes from dermatology. Consider biopsy if indicated for ongoing pruritic rash. Continue follow-up with primary care. She continues to have elevated blood pressure. Continue follow-up with primary care regarding her elevated blood pressures. 04/23/2022: No improvement in symptoms or iron [...] iron studies only if significant worsening anemia. 03/04/2023: At least trace iron stores on 02/12/2023 bone marrow biopsy. Continue same recommendations as above. 09/02/2023: Absent iron stores on bone marrow biopsy with iron saturation low at 15%. Given her chronic kidney disease and neuropathy we added ferrous sulfate 1 tablet daily. Currently iron saturation is stable at 16% and she is no longer taking oral iron. Will defer to nephrology 08/31/2024, 12/21/2024: Hemoglobin normal, previous iron sat 15.7%, normal ferritin. Continue observation--adequate iron bone marrow stores on biopsy. Morbid obesity, continue follow-up with primary physician. Relatively stable weight since start of therapy. No recent mental health issues on current medications. Workup for fevers of unknown origin, low-grade and asymptomatic. This is likely tumor fever but will add acyclovir 400 mg twice daily and send infectious workup. May consider addition of additional prophylactic antibiotics such as levofloxacin which would need to be dosed for impaired renal function. Patient will be contacted after her FUO workup. Author Roxane Bills [facility] HospitalAuthoredOctober 2024 8:50pm10/27/2024: We reviewed recommendations of [facility] malignant hematology tumor board: Due to meeting criteria for myeloma by 15% plasma cells in marrow and diffuse uptake on PET/CT with peripheral neuropathy we we will start active therapy in the next few weeks. Baseline echocardiogram for possible Kyprolis. Reviewed and signed informed consent to start daratumumab, Revlimid, dexamethasone within the next few weeks. Will return for oral chemo visit after enrollment on [facility] and we will start therapy after prior authorization obtained. 11/22/2024: Tolerating treatment with daratumumab, lenalidomide, and dexamethasone well. This initiated on 11/14. Replace calcium and check magnesium. 12/06/2024: Discussed with Dr. Bills. Ok for treatment today. Will follow up closely with Dr. Bills in a few weeks 12/21/2024: Patient still has had intermittent fevers of unclear etiology. Adding acyclovir 400 mg twice daily with infectious workup. CBC normal and responding disease. Continue current dosing of daratumumab, lenalidomide, and dexamethasone. (Sixth dose 12/21, then on hold during hsopital stay). --Admission 12/27-12/31/2024 for sepsis with severe thrombocytopenia. Inpatient consultation with me on 12/27/2024 where we recommended IVIG for platelet count down to 4000 for suspected ITP. She also received 2 units of platelets. Revlimid on hold 12/27 (will resume 10mg daily if plt >100,000) 01/18/2025: Orders to resume Cycle 2 week 15 Daratumumab + Dexamethasone. F/u 3 weeks. Now 64-year old patient who reports chronic fatigue, progressive increase in weight and she is noted to have a BMI of 49. She has mild anemia with most recent hemoglobin 11.6, elevated erythrocyte sedimentation rate of 65, most recent renal function panel showed a creatinine of 1.64 correlating to EGFR, mfw-Ripygux-Gyvamrht 32. This has not significantly changed over the last year but is lower than prior labs from [id number]. Most recent calcium within normal limits and [...] urine immunofixation which showed no monoclonality, and kappa/lambda light chain analysis with mild elevation of ratio. In addition she was noted to have elevated beta-2 microglobulin, although this could also [...] or failure to respond, we will arrange parenteral iron therapy. Next follow-up with me will be [...] now has normal iron stores but has persistent fatigue. We will continue follow-up with primary care and neurology. Next follow-up for monoclonal gammopathy and iron deficiency in 6 months with appropriate labs as noted above. Low complexity 25-minute follow-up visit. 01/29/2023: Over the past 6 months she has noted increased hip pain and follow- up monoclonal gammopathy labs show increased IgG level and kappa/lambda ratio about double that of 6 months ago. Hemoglobin is normal with normal iron saturation 23% after prior parenteral iron with Venofer. Creatinine is slightly improved to 1.3 with normal calcium level. It [...] marrow biopsy at interventional radiology and will follow-up with me after bone marrow biopsy and repeat skeletal survey in about 3 to 4 weeks to review results and further plan of care. This is of moderate complexity 35- minute follow-up for complex medical testing. 03/04/2023: Stable pain symptoms. No progression from MGUS on 02/12/2023 bone marrow biopsy (2-5% plasma cells, FISH with 10% 13q deletion/monosomy 13, normal cytogenetics). Skeletal survey without new bone lesions. I recommended orthopedic surgery evaluation for back and hip pain. Continue followup with peripheral neuropathy with neurology. Next followup with MGUS labs (CBC, CMP, free kappa/lambda light chains and immunoglobulins IgG/IgA/IgM with serum protein electrophoresis) in 6 months, sooner if new symptoms arise. Moderate complexity 30 minute followup to review complex testing/bone marrow biopsy results. 09/01/2022: Kelsea is here for 6-month follow-up of MGUS. No change in chronic neuropathy that may be more related to diabetes mellitus. We performed bone marrow biopsy 6 months ago showing 2 to 5% plasma cells and no lesions were noted on skeletal survey. She continues to have normal hemoglobin, relatively stable renal function with normal calcium. She continues follow-up with neurology for her peripheral neuropathy. She does have mild increase of her M spike to 0.8 g/dL, but stable IgG level and kappa/lambda light chain ratio was not reported today. At this point there is no indication for repeating bone marrow biopsy or active therapy for monoclonal gammopathy. We will continue to follow every 6 months and perform MGUS labs (CBC, CMP, free kappa/lambda light chains and immunoglobulins IgG/IgA/IgM with serum protein electrophoresis) with skeletal survey prior to next follow-up, sooner as needed. Moderate complexity 35-minute follow-up to review complex medical testing, symptoms, and comorbidities. 03/02/2024: Kelsea presents for 6-month follow-up of MGUS. Stable chronic neuropathy that is likely due to diabetes mellitus. No recent infections or new concerning symptoms although she does continue to have persistent lower extremity rash. She did not note any improvement with medication prescribed by dermatology. She has had repeated bone marrow biopsy showing less than 5% plasma cells and her annual skeletal survey shows no new lesions. Slightly higher M spike at 0.9 but stable quantitative immunoglobulins and kappa/lambda light chain ratio. No indication for bone marrow biopsy to be repeated at this time. Continue every 6-month follow-up with MGUS labs (CBC, CMP, free kappa/lambda light chains and immunoglobulins IgG/IgA/IgM with serum protein electrophoresis) and every 12 months skeletal survey, sooner if new symptoms arise. Moderate complexity 30-minute follow-up of complex medical testing, symptoms, and comorbidities. 08/31/2024: Kelsea is here for 6 month followup of MGUS--worsening lumbar pain last 2 months with some weakness and mild swelling right hand as noted above. Stable hemoglobin and stage 3 CKD, normal calcium, but concerning trend of rising M-spike, IgG, and now kappa/lambda light chain ratio greater than 8. She agrees to IR referral for repeat bone marrow biopsy, whole body PET/CT, and review of results in about 3-4 weeks when results available--if new uptake in cervical spine, we may order cervical MRI for right hand weakness symptoms. This is a moderate complexity visit over 35 minutes. 10/06/2024: Kelsea presents for followup of 09/19/2024 bone marrow biopsy and subsequent PET/CT which shows low level involvement (10-15%) IgG kappa plasma cells in marrow, FISH with monosomy 13, and no evidence of amyloid deposition, but PET/CT shows extensive FDG avidity within the bones. She has increasing pain, moderate renal insufficiency, no anemia or hypercalcemia, and persistent neuropathy. Due to this discordant result between bone marrow and PET/CT. I will present her case to Malignant Hematology tumor board next week regarding indications for treatment and potential regimen given her baseline neuropathy. F/u results in 2-3 weeks. High complexity 45 minute followup to followup PET/CT, bone marrow biopsy, and tumor board presentation. 10/27/2024: No change in clinical history over the last 3 weeks since last visit. [facility] Malignant Hematology Tumor Board agrees with active therapy based on review of bone marrow biopsy now meeting criteria for active IgG kappa myeloma (15%), with diffuse uptake on PET/CT and peripheral neuropathy. Stable moderate renal insufficiency and O2 dependent COPD therefore she is not a candidate for stem cell transplantation referral. Today we reviewed and signed informed consent for daratumumab, Revlimid, and dexamethasone and will contact her when we have obtained prior authorization for this regimen. We will set her up for rev assist program for lenalidomide she received chemotherapy counseling today. We will obtain baseline echocardiogram as there was a recent presentation at [facility] 2024 showing benefit of 4 drug regimen with addition of carfilzomib. I will discuss this with malignant hematology at [facility] malignant hematology and we may add this in if Darzalex, Revlimid, dexamethasone is well-tolerated. She will follow-up with ma cycle 1 week 3 of therapy for toxicity visit. High complexity 45-minute follow- up to review [facility] Malignant Hematology Tumor Board recommendations and informed consent for daratumumab, Revlimid, dexamethasone therapy. 11/22/2024 Tolerating daratumumab, lenalidomide, and dexamethasone well. Continue working with Dr. Aguilar for sugar control. Improving numbers on review. Continue efforts. Discussed with Dr. Bills who will consider adding on carfilzomib if patient continues to tolerate current regimen well. 12/06/2024: Continue current treatments after discussion with Dr. Bills. Will do a close follow up. 12/21/2024: Discussion of recent fevers up to 102 without infectious workup. Starting prophylactic acyclovir and will send blood cultures x 2, chest x-ray, urinalysis with culture and contact with results. Okay to continue current dosing of lenalidomide with daratumumab and dexamethasone. Otherwise responding by M spike and kappa/lambda light chain ratio without cytopenias, stage III chronic kidney disease mildly worse on labs today, LFTs downtrending. Will continue to follow closely on therapy with next follow-up in 6 weeks, sooner if new issues arise. Moderate complexity 35-minute follow-up. 01/18/2025: Here for followup after hospitalization 12/27-12/31/2024 for FUO/suspected sepsis with severe thrombocytopenia--platelet count 4000. Inpatient consultation with me on 12/27/2024 where we recommended IVIG 1mg/kg/day x 2 days and 4 days of Dexamethasone. She also received 2 units of platelets. Revlimid on hold 12/27 (will resume 10mg daily if plt >100,000). At followup appointment 01/18/2025 she notes improving neuropathy and body pain. White blood cell count is now up to 3400 with absolute neutrophil count 1100, hemoglobin up to 9.6, and platelets now 58,000. Creatinine is 1.33 which is near her prior baseline and she has elevated glucose consistent with her known diabetes. She has not had any fever, chills and feels that since starting her antineoplastic therapy for myeloma she has had improvement of bone pain and peripheral neuropathy. M spike returned to asymmetric gamma (previously 0.4 in November). Quantitative immunoglobulins show normal IgG (previously 1832, now 1184). Free kappa light chain has declined to 32.7, free lambda 17, and kappa/lambda light chain ratio 1.92 (was 8.34 in August and 3.40 in November). We decided that we will continue daratumumab and dexamethasone weekly as per prior schedule and reevaluate in about 3 weeks. If she has improved platelets and ANC to normal values, we may consider resuming Revlimid at a lower dose (previously 25, possibly resume at 10 mg daily). She agrees to follow-up as directed in 3 weeks but will return sooner if new issues arise. High complexity 45-minute follow-up of recent hospital stay and management of cytopenias and resolving thrombocytopenia (likely combination of myelosuppression from Revlimid and/or ITP). She has known diabetes and notes that blood sugars have been under stable control. This also may be a contributing factor for her neuropathy, however increasing symptoms with increased M-spike and kappa light chain were concerning for possible progression to myeloma. We reviewed her bone marrow and PET/CT review at [facility] Hematology tumor board 10/20/2024 regarding indications for treatment and potential regimen. Avoid bortezomib with regimen due to baseline peripheral neuropathy. 11/22/2024: Continue working with Dr. Aguilar for sugar issues. 01/18/2025: Most recent glucose is 377--will coordinate adjustment of diabetes medications by Dr. Aguilar. Mild improvement of neuropathy since start of therapy. Continue to follow. Chronic stable CKD stage IIIb. Elevated beta-2 microglobulin is likely due to her chronic kidney disease. Plan to repeat it after 90% response of monoclonal labs on Darzalex, Revlimid, dexamethasone regimen. At last visit she noted worsening hip and pelvic pain which have since stabilized. She had a prior lumbar MRI negative for myelomatous lesions. Most recent bone marrow biopsy and skeletal survey reviewed today did not show any concerning lytic lesions. She was referred for orthopedic evaluation. --10/06/2024: Multiple areas of bone uptake consistent with progression to myeloma on whole body PET/CT--will consult palliative medicine to assist with pain control upon start of myeloma therapy. -- 12/21/2024: Patient notes recent increase of back and pelvis pain despite improvement of myeloma markers. This may be related to degenerative disease but will defer her PET/CT until March 2025 unless she has increased frequency of requiring hydrocodone or other pain meds. --01/18/2025: Bone pain and peripheral neuropathy improving since start of therapy November 2024. Chronic O2 dependence, currently 3-5 L nasal cannula. No recent infections or clinical changes (negative cultures and respiratory panel during admission and FUO workup above). The patient previously saw dermatology for pruritic erythematous rash over the past 6 to 9 months which has not improved with medication and has not fully resolved. She has multiple areas of excoriation when this has not responded to topical triamcinolone cream. This has improved since start of myeloma therapy. Continue as needed follow-up with dermatology and primary care. The patient has nodular erythematous areas over the bilateral anterior shins that she was told by her primary care may be venous insufficiency changes. Given her multiple medical issues, this may be erythema nodosum and I have not seen notes from dermatology. Consider biopsy if indicated for ongoing pruritic rash. Continue follow-up with primary care. She continues to have elevated blood pressure. Continue follow-up with primary care regarding her elevated blood pressures. 04/23/2022: No improvement in symptoms or iron [...] iron studies only if significant worsening anemia. 03/04/2023: At least trace iron stores on 02/12/2023 bone marrow biopsy. Continue same recommendations as above. 09/02/2023: Absent iron stores on bone marrow biopsy with iron saturation low at 15%. Given her chronic kidney disease and neuropathy we added ferrous sulfate 1 tablet daily. Currently iron saturation is stable at 16% and she is no longer taking oral iron. Will defer to nephrology 08/31/2024, 12/21/2024: Hemoglobin normal, previous iron sat 15.7%, normal ferritin. Continue observation--adequate iron bone marrow stores on biopsy. 01/18/2025: Mild normochromic/normocytic anemia off myeloma therapy 12/21-01/17. Continue to hold Revlimid until platelets >100,000 but will resume weekly Darzalex Faspro and Dexamethasone. Morbid obesity, continue follow-up with primary physician. Relatively stable weight since start of therapy. No recent mental health issues on current medications. Due to severe thrombocytopenia during hospital stay 12/27-12/31/2024: We recommended IVIG 1mg/kg/day x 2 days and 4 days of Dexamethasone. She also received 2 units of platelets. Revlimid on hold 12/27 and she remained off until followup today. On day of discharge platelets were 10,000 (she signed out AMA). Today platelets up to 56,000 without bleeding. Plan to resume cycle 2, day 15 Darzalex Faspro and weekly Dexamethasone. Continue to hold Revlimid 25mg daily, then will resume 10mg daily days 1-21 every 28 day cycle if plt >100,000. Followup in 3 weeks for toxicity check. Future Tests Future scheduled test information is unavailable Pending Tests Test Name Ordered Date Scheduled Date Serum Immunofixation February 06, 2025 10:35am Immunoglobulin GOctober 2024 10:35amImmunoglobulin AOctober 2024 10:35amImmunoglobulin MOctober 2024 10:35amUrine Random Total Protein February 06, 2025 10:35amUrine Random AlbuminOctober 2024 10:35amUrine [id number]-[id number] (%)February 06, 2025 10:35amUrine Random Mpqhi-6-Tnezimnvh % February 06, 2025 10:35amUrine Random Beta-Globulin %February 06, 2025 10:35am Urine Random Gamma Globulin %February 06, 2025 10:35amUrine Random PEP M-Damien %February 06, 2025 10:35amUrine Random Prot Electrophor NoteOctober 2024 10:35amComprehensive Metabolic PanelAugust 2024 2:35pm1 Days Future Visits Future appointment information is unavailable Future Procedures Procedure Name Ordered Date Scheduled Date Complete Blood Count Auto Diff December 02, 2024 2:35pm 1 Days Bone Marrow Biopsy September 11, 2021 10:49am 1 Days Oncology Outpatient Referral To: March 04, 2023 2:45pm 1 Days Ejection fraction>=40% November 06, 2024 3:26pm Au nate 2024 12:00am Ejection fraction>=40% November 06, 2024 3:26pm Au [facility] 2024 12:00am Ejection fraction>=40% December 02, 2024 2:35pm December 13, 2024 12:00am Ejection fraction>=40% December 02, 2024 2:35pm December 21, 2024 12:00am Ejection fraction>=40% December 02, 2024 2:35pm February 08, 2025 12:00am Ejection fraction>=40% November 06, 2024 3:26pm [facility] 2024 12:00am AST/ALT>ULN OR BILI >ULN November 06, 2024 3:26pm November 14, 2024 12:00am AST/ALT>ULN OR BILI >ULN November 06, 2024 3:26pm November 29, 2024 12:00am AST/ALT>ULN OR BILI >ULN December 02, 2024 2:35p m December 21, 2024 12:00am AST/ALT>ULN OR BILI >ULN November 06, 2024 3:26pm November 22, 2024 12:00am AST/ALT>ULN OR BILI >ULN December 02, 2024 2:35p m December 13, 2024 12:00am AST/ALT>ULN OR BILI >ULN December 02, 2024 2:35p m February 08, 2025 12:00am ANC>=1000 November 06, 2024 3:26pm November 12:00am ANC>=1000 November 06, 2024 3:26pm November 222024 12:00am ANC>=1000 November 06, 2024 3:26pm November 292024 12:00am ANC>=1000 November 06, 2024 3:26pm December 062024 12:00am ANC>=1000 December 02, 2024 2:35pm Sept[facility] er 2024 12:00am ANC>=1000 December 02, 2024 2:35pm Septemb er 2024 12:00am ANC>=1000 December 02, 2024 2:35pm February 08, 2025 12:00am Hold & Call Ordering Physici an if Pt Does Not Meet Criteria December 02, 2024 2:35pm December 21, 2024 12:00am Hold & Call Ordering Physici an if Pt Does Not Meet Criteria November 06, 2024 3:November 14, 2024 12:00am Hold & Call Ordering Physici an if Pt Does Not Meet Criteria November 06, 2024 3:pm November 22, 2024 12:00am Hold & Call Ordering Physici an if Pt Does Not Meet Criteria November 06, 2024 3:November 29, 2024 12:00am Hold & Call Ordering Physici an if Pt Does Not Meet Criteria November 06, 2024 3:pm December 06, 2024 12:00am Hold & Call Ordering Physici an if Pt Does Not Meet Criteria December 02, 2024 2:35pm December 13, 2024 12:00am Hold & Call Ordering Physici an if Pt Does Not Meet Criteria December 02, 2024 2:35pm February 08, 2025 12:00am Apply O2 via Nasal Cannula 4 L to Maintain SpO2 of >=90% April 25, 2022 2:18pm May 05, 2022 1:00am Apply O2 via Nasal Cannula 4 L to Maintain SpO2 of >=90% November 06, 2024 3:pm November 14, 2024 12:00am Apply O2 via Nasal Cannula 4 L to Maintain SpO2 of >=90% November 06, 2024 3:pm November 22, 2024 12:00am Apply O2 via Nasal Cannula 4 L to Maintain SpO2 of >=90% November 06, 2024 3:pm November 29, 2024 12:00am Apply O2 via Nasal Cannula 4 L to Maintain SpO2 of >=90% December 02, 2024 2:35pm December 21, 2024 12:00am Apply O2 via Nasal Cannula 4 L to Maintain SpO2 of >=90% April 25, 2022 2:18pm May 09, 2022 1:00am Apply O2 via Nasal Cannula 4 L to Maintain SpO2 of >=90% April 25, 2022 2:18pm May 12, 2022 1:00am Apply O2 via Nasal Cannula 4 L to Maintain SpO2 of >=90% November 06, 2024 3:26pm December 06, 2024 12:00am Apply O2 via Nasal Cannula 4 L to Maintain SpO2 of >=90% December 02, 2024 2:35pm December 13, 2024 12:00am Apply O2 via Nasal Cannula 4 L to Maintain SpO2 of >=90% December 02, 2024 2:35pm February 08, 2025 12:00am Orders Panel Function Communication Order April 30, 2022 1:09pm April 30, 2022 1:09pm Orders Panel Function Communication Order November 14, 2024 8:36am November 14, 2024 8:36am Orders Panel Function Communication Order December 13, 2024 9:50am December 13, 2024 9:50am Orders Panel Function Communication Order December 13, 2024 10:37am December 13, 2024 10:37am Orders Panel Function Communication Order February 08, 2025 10:17am February 08, 2025 10:17am Orders Panel Function Communication Order November 14, 2024 8:35am November 14, 2024 8:35am Orders Panel Function Communication Order November 14, 2024 8:37am November 14, 2024 8:37am Orders Panel Function Communication Order November 21, 2024 11:46am November 21, 2024 11:46am Orders Panel Function Communication Order December 06, 2024 2:30pm December 06, 2024 2:30pm Orders Panel Function Communication Order December 13, 2024 11:07am December 13, 2024 11:07am Orders Panel Function Communication Order December 28, 2024 4:13pm December 28, 2024 4:13pm Orders Panel Function Communication Order January 24, 2025 2:28pm January 24, 2025 2:28pm Orders Panel Function Communication Order January 30, 2025 2:45pm January 30, 2025 2:45pm Platelets>=50,000 November 06, 2024 3:26pm December 06, 2024 12:00am Platelets>=50,000 December 02, 2024 2:35pm Septe mber 2024 12:00am Platelets>=50,000 December 02, 2024 2:35pm Septe mber 2024 12:00am Platelets>=50,000 December 02, 2024 2:35pm Octob er 2024 12:00am Platelets>=50,000 November 06, 2024 3:26pm November 14, 2024 12:00am Platelets>=50,000 November 06, 2024 3:26pm November 22, 2024 12:00am Platelets>=50,000 November 06, 2024 3:26pm November 29, 2024 12:00am Proceed with Treatment December 13 11:06am December 13, 2024 12:00am No Growth Factor November 06, 2024 3:26pm November 142024 12:00am No Growth Factor December 02, 2024 2:35pm Septem 2024 12:00am Increase in systolic blood pressure of greater than 30 mmHg from baseline November 06, 2024 3:26pm November 14, 2024 12:00am Increase in systolic blood pressure of greater than 30 mmHg from baseline November 06, 2024 3:26pm November 22, 2024 12:00am Increase in systolic blood pressure of greater than 30 mmHg from baseline December 02, 2024 2:35pm February 08, 2025 12:00am Increase in systolic blood pressure of greater than 30 mmHg from baseline November 06, 2024 3:26pm November 29, 2024 12:00am Increase in systolic blood pressure of greater than 30 mmHg from baseline December 02, 2024 2:35pm December 13, 2024 12:00am Increase in systolic blood pressure of greater than 30 mmHg from baseline December 02, 2024 2:35pm December 21, 2024 12:00am Diet Supplement December 28, 2024 1:38pm December 28, 2024 1:38pm Admit Status Order December 27, 2024 8:56am December 27, 2024 8:56am Consult to Infectious Diseases December 28, 2024 10:56am December 28, 2024 10:56am Consult to Oncology December 27, 2024 10:39am December 27, 2024 10:39am Orders Panel Function Communication Order December 27, 2024 2:06pm December 27, 2024 2:06pm Contraindication No VTE Prophylaxis December 27, 2024 10:44am December 27, 2024 10:45am Contraindication No VTE Prophylaxis December 27, 2024 10:44am December 28, 2024 10:45am Immunofixation,Serum December 21 9:48am February 06, 2025 10:35am Free K+L LT Chains, Qn, S December 9:48am February 06, 2025 10:35am Protein Electrophoresis, Serum December 21, 2024 9:48am February 06, 2025 10:35am Protein Electro, Random Urine December 21, 2024 9:48am February 06, 2025 10:35am Future Medications Future medication information is unavailable Patient Instructions Instruction Admit Date Know your Meds December 27, 2024 8:56am Goals Acute Goals Author Authored Date Maintain/increase activity l terra * Understands factors that may lead to activity intolerance * Helps perform self care activities * Maintains maximum range of motion * Increase/regain muscle mass and strength * Maintains VS WNL during activity * Maintain intact skin integrity Updated: 3[facility] 1:01pm
--- OUTSIDE RECORDS SUMMARY | 2025-02-09 14:19 | XMS_ITS | Clinical Summary ---
Author Organization [facility] tem Address [id number] [address] [place] [address] Care Team Providers Care It Project Manager Name Role Phone Svetlana Garcia DO Primary Care Provider [phone] Social History Tobacco UseTypesPacks/DayYears UsedDateSmoking Tobacco: Never AssessedChildcare AnswerDate AoqdzclvNrjdiciesKwpxzjz05/12/2019EmploymentAnswerDate Recorded TmxbpptvcbOlczxsn98/12/2019CommentsUnknownSex and Gender Information ValueDate RecordedSex Assigned at BirthNot on fileLegal SawBbdrtf56/06/2015 12:11 PM EDTGender IdentityNot on fileSexual OrientationNot on file Plan of Treatment Health MaintenanceDue DateLast DoneCommentsDepression Wcnzsleyx44/28/1971Tobacco Hwzcoaxpd58/28/1971Adult BMI Ndrfavbng69/28/1977DTaP,Tdap and Td Vaccines (1 - Tdap)1977Zoster (Shingles) Vaccine (1 of 2)2008Fall Risk Screening 10/09/2023Influenza Farsegl1312/12/2024 Medical Devices Not on file Insurance Care Teams Team MemberRelationshipSpecialtyStart DateEnd Date Svetlana Garcia DO PCP - GeneralInternal Medicine09/21/20
--- OUTSIDE RECORDS SUMMARY | 2025-02-09 14:20 | XMS_ITS | Clinical Summary ---
Author Organization [facility] Address [address] [place] [address] Phone Care Team Providers Care Senior Contracts Manager Name Role Phone Unavailable Primary Care Provider Unavailabl e Social History Tobacco UseTypesPacks/DayYears UsedDateSmoking Tobacco: Never Assessed CommentsUnknownSex and Gender InformationValueDate RecordedSex Assigned at Not on fileLegal OhoZnqods13/26/2022 6:30 PM ESTGender IdentityNot on fileSexual OrientationNot on file Plan of Treatment Health MaintenanceDue DateLast DoneCommentsCT Xpkcsyvkkuto75/28/1959Colonoscopy 1958Colorectal Cancer Mkcpjoaur74/28/1959FIT-DNA (Cologuard)1958FIT 1958Lipid Panel1958Medicare Annual Wellness Visit (AWV)1958 Owcsidxrxjghx83/28/1959MMR Vaccines (1 of 1 - Standard series)10/09/1959 Hepatitis C Ltmmjpsrk13/28/1977DTaP/Tdap/Td Vaccines (1 - Tdap)1980 Eawqedgtx44/28/1999Pneumococcal Vaccine (1 of 1 - PCV)2008Zoster Vaccines (1 of 2)2008one Density Scan10/09/2023Influenza Vaccine (#1)2024 COVID-19 Vaccine (1 - 2024- season)2024RSV High Risk: (Elderly (60+) or Population) (1 - 1-dose 75+ series)2033HIB VaccinesAged OutNo longer eligible based on patient's age to complete this topicHPV VaccinesAged OutNo longer eligible based on patient's age to complete this topicHepatitis A VaccinesAged OutNo longer eligible based on patient's age to complete this topic Hepatitis B VaccinesAged OutNo longer eligible based on patient's age to complete this topicIPV VaccinesAged OutNo longer eligible based on patient's age to complete this topicMeningococcal VaccineAged OutNo longer eligible based on patient's age to complete this topicRotavirus VaccinesAged OutNo longer eligible based on patient's age to complete this topic Insurance
--- OUTSIDE RECORDS SUMMARY | 2025-02-09 14:20 | XMS_ITS | Encounter Summary ---
Author Organization [facility] Address [address] [place] [address] Care Team Providers Care Aviation Technician Aircraft Name Role Phone Giovanni Moreno MD Primary Care Provider [phone] Encounter Details DateTypeDepartmentCare Team (Latest Contact Info)Glwcusgyaoe07/27/2025External Result Encounter [facility] External Department Unsolicited Roxane Bills MD [address] [place] [address] Social History Tobacco UseTypesPacks/DayYears UsedDateSmoking Tobacco: NeverPassive Smoke Exposure: NeverSmokeless Tobacco: NeverAlcohol UseStandard Drinks/WeekComments Never0 (1 standard drink = 0.6 oz pure alcohol)Caffeine intake: 2-3 cups per day CommentsUnknownSex and Gender InformationValueDate RecordedSex Assigned at BirthNot on fileLegal CneIdntwb13/15/2023 7:13 PM EDTGender IdentityNot on fileSexual OrientationNot on filedocumented as of this encounter Plan of Treatment DateTypeDepartmentCare Team (Latest Contact Info)Aivybfgelfb94/24/2025 10:10 AM ESTOffice Visit [facility] [address] [place] [address] Jeannie Aguilar MD [address] [place] [address] 03/07/2025 2:00 PM ESTOffice Visit [facility] [address] [place] [phone] Svetlana Garcia, DO [address] [place] [address] 03/13/2025 8:40 AM ESTOffice Visit [facility] [address] [place] [phone] Mack Pride, FRANDY [address] [facility] [address] [place] [address] documented as of this encounter Procedures Procedure NamePriorityDate/TimeAssociated DiagnosisCommentsLACTATE DEHYDROGENASE Thmrpky0602/06/2025 10:35 AM EDT COMPREHENSIVE METABOLIC TPMUHWwhcdan37/27/2025 10:35 AM EDT documented in this encounter Results * Lactate dehydrogenase (02/06/2025 10:35 AM EDT)ComponentValueRef RangeTest MethodAnalysis TimePerformed AtPathologist SignatureLDH LACTATE DEHYDROGENASE 598959 - 271 U/L1 1:00 PM EDTFKindred Healthcare CtrSpecimen (Source)Anatomical Location / LateralityCollection Method / VolumeCollection TimeReceived TimeOtherTopography unknown / Tuhsynw8602/06/2025 10:35 AM EDT 02/06/2025 10:35 AM EDT Narrative Authorizing ProviderResult TypeResult StatusRxoane Bills MDLAB BLOOD ORDERABLES Final ResultPerforming OrganizationAddressCity/State/ZIP CodePhone Number [facility] [address] [place] [address], [facility] [address] [place] [address] * (ABNORMAL) Comprehensive metabolic panel (02/06/2025 10:35 AM EDT)Component ValueRef RangeTest MethodAnalysis TimePerformed AtPathologist SignatureGlucose 485(H)70 - 100 mg/dL02/06/2025 1:00 PM [facility] Comment: Random Glucose Reference Range is dependent on time and content of last meal. Glucose of more than 200 mg/dL in a nonstressed, ambulatory subject supports the diagnosis of Diabetes Mellitus. ADA recommended reference range DQD844 - 25 mg/dL02/06/2025 1:00 PM [facility] CtrCREATININE 1.21(H)0.60 - 1.20 mg/dL02/06/2025 1:00 PM [facility] ESTIMATED GFR49.2100102/06/2025 1:00 PM [facility] EmuKvfvnm871 136 - 145 mmol/L1 1:00 PM [facility] CtrPotassium, Bld4.03.5 - 5.1 mmol/L1 1:00 PM [facility] Ulduevbd3084 - 107 mmol/L1 1:00 PM [facility] Carbon Cbjvvjd94.021.0 - 31.0 mmol/L1 1:00 PM [facility] CtrAnion Gap13.06.0 - 15.010 1:00 PM [facility] CtrCalcium8.3(L)8.6 - 10.3 mg/dL02/06/2025 1:00 PM [facility] CtrTOTAL PROTEIN6.2(L)6.4 - 8.9 g/dL02/06/2025 1:00 PM [facility] CtrALBUMIN LEVEL3.83.5 - 5.7 g/dL02/06/2025 1:00 PM [facility] CtrGLOBULIN2.4g/dL02/06/2025 1:00 PM [facility] CtrALBUMIN/GLOBULIN RATIO1.610 1:00 PM [facility] CtrBILIRUBIN,TOTAL0.30.3 - 1.0 mg/dL02/06/2025 1:00 PM [facility] CtrASPARTATE AMINO OVUKNBJVTRL8156 - 39 U/L1 1:00 PM [facility] CtrALANINE LDVULQXQNMXIFCDL810 - 52 U/L 02/06/2025 1:00 PM [facility] CtrALKALINE LOAUQMYZBOW943(H)34 - 104 U/L1 1:00 PM [facility] CtrCREATININE CLR CALC XAXARCQD43.131 1:00 PM [facility] CtrSpecimen (Source)Anatomical Location / LateralityCollection Method / VolumeCollection TimeReceived TimeOtherTopography unknown / Pktlyba2002/06/2025 10:35 AM EDT 02/06/2025 10:35 AM EDT Narrative Authorizing ProviderResult TypeResult StatusRoxane Bills MDLAB BLOOD ORDERABLES Final ResultPerforming OrganizationAddressCity/State/ZIP CodePhone Number [facility] [address] [place] [address], [facility] [address] [place] [address] documented in this encounter Visit Diagnoses Not on filedocumented in this encounter Care Teams Team MemberRelationshipSpecialtyStart DateEnd Date Giovanni Moreno MD [address] [place] [address] PCP - GeneralFamily Medicine09/18/22documented as of this encounter
--- OUTSIDE RECORDS SUMMARY | 2025-02-09 14:20 | XMS_ITS | Encounter Summary ---
Author Organization [facility] Address [address] [place] [address] Care Team Providers Care Office Worker Name Role Phone Giovanni Moreno MD Primary Care Provider Encounter Details DateTypeDepartmentCare Team (Latest Contact Info)Wexoobrwdzd16/27/2025External Result Encounter [facility] External Department Unsolicited Roxane Bills MD [address] [place] [address] Social History Tobacco UseTypesPacks/DayYears UsedDateSmoking Tobacco: NeverPassive Smoke Exposure: NeverSmokeless Tobacco: NeverAlcohol UseStandard Drinks/WeekComments Never0 (1 standard drink = 0.6 oz pure alcohol)Caffeine intake: 2-3 cups per day CommentsUnknownSex and Gender InformationValueDate RecordedSex Assigned at BirthNot on fileLegal SqqFdmdwf38/15/2023 7:13 PM EDTGender IdentityNot on fileSexual OrientationNot on filedocumented as of this encounter Plan of Treatment DateTypeDepartmentCare Team (Latest Contact Info)Voikoinwwvn32/24/2025 10:10 AM ESTOffice Visit [facility] [address] [place] [address] Jeannie Aguilar MD [address] [place] [address] 03/07/2025 2:00 PM ESTOffice Visit [facility] [address] [place] [address] Svetlana Garcia DO [address] [place] [address] 03/13/2025 8:40 AM ESTOffice Visit [facility] [address] [place] [phone] Mack Pride DPM [address] [facility] [address] [place] [address] documented as of this encounter Procedures Procedure NamePriorityDate/TimeAssociated DiagnosisCommentsPROTEIN ELECTRO, RANDOM CRNVWPgydfrb24/27/2025 10:35 AM EDT documented in this encounter Results * PROTEIN ELECTRO, RANDOM URINE (02/06/2025 10:35 AM EDT)ComponentValueRef Range Test MethodAnalysis TimePerformed AtPathologist SignaturePROTEIN, TOTAL, URINE 9.9Not Estab. mg/dL02/08/2025 3:09 PM EDTFIRELANDSALBUMIN, URINE30.9. % 02/08/2025 3:09 PM BLHFCVYIRKWFBJLPX-6-EVCSXQVR, URINE2.8. %02/08/2025 3:09 PM RRWEZKSNDIOFAEWPR-6-UHCPWPLG, URINE11.3. %02/08/2025 3:09 PM EDTFIRELANDSBETA GLOBULIN, URINE33.8. %02/08/2025 3:09 PM EDTFIRELANDSGAMMA GLOBULIN, URINE21.1 . %02/08/2025 3:09 PM EDTFIRELANDSM-SPIKE %Not ObservedNot Observed % 02/08/2025 3:09 PM EDTFIRELANDSPLEASE NOTE:Comment.02/08/2025 3:09 PM EDT FIRELANDSComment: Protein electrophoresis scan will follow via computer, mail, or transit police officer delivery. Performed at: ?? - [facility] [place] ??[id number] [employer]ake[employer]: Jhoan Rich PhD, Phone: ??[phone] Specimen (Source)Anatomical Location / LateralityCollection Method / Volume Collection TimeReceived FozyYcsfg28/27/2025 10:35 AM EDT1 10:35 AM EDT Narrative Authorizing ProviderResult TypeResult StatusRoxane Bills MDLAB BLOOD ORDERABLES Final ResultPerforming OrganizationAddressCity/State/[facility] CodePhone Number [facility] [address] [place] [address], documented in this encounter Visit Diagnoses Not on filedocumented in this encounter Care Teams Team MemberRelationshipSpecialtyStart DateEnd Date Giovanni Moreno MD [address] [facility] [place] [address] PCP - GeneralFamily Medicine09/18/22documented as of this encounter
--- OUTSIDE RECORDS SUMMARY | 2025-02-09 14:20 | XMS_ITS | Encounter Summary ---
Author Organization [facility] Address [address] [place] [address] Care Team Providers Care Agricultural Mechanic Name Role Phone Giovanni Moreno MD Primary Care Provider Encounter Details DateTypeDepartmentCare Team (Latest Contact Info)Npdufqbideb60/27/2025External Result Encounter [facility] External Department Unsolicited Roxane Bills MD [address] [place] [address] Social History Tobacco UseTypesPacks/DayYears UsedDateSmoking Tobacco: NeverPassive Smoke Exposure: NeverSmokeless Tobacco: NeverAlcohol UseStandard Drinks/WeekComments Never0 (1 standard drink = 0.6 oz pure alcohol)Caffeine intake: 2-3 cups per day CommentsUnknownSex and Gender InformationValueDate RecordedSex Assigned at BirthNot on fileLegal LphPejjdr36/15/2023 7:13 PM EDTGender IdentityNot on fileSexual OrientationNot on filedocumented as of this encounter Plan of Treatment DateTypeDepartmentCare Team (Latest Contact Info)Xhdvwbrjtwl88/24/2025 10:10 AM ESTOffice Visit [facility] [address] [place] [address] Jeannie Aguilar MD [address] [place] [address] 03/07/2025 2:00 PM ESTOffice Visit [facility] [address] [place] [phone] Svetlana Garcia, DO [address] [place] [address] 03/13/2025 8:40 AM ESTOffice Visit [facility] [address] [place] [phone] Mack Pride, DPAlia [address] [address] documented as of this encounter Procedures Procedure NamePriorityDate/TimeAssociated DiagnosisCommentsCBC WITH AUTO WGDOILBYVNVHYczwxdo90/27/2025 10:35 AM EDT documented in this encounter Results * (ABNORMAL) CBC auto differential (02/06/2025 10:35 AM EDT)ComponentValueRef RangeTest MethodAnalysis TimePerformed AtPathologist SignatureWBC7.03.8 - 11.6 [CFU]/mL02/06/2025 11:55 AM [facility] CtrUNCORRECTED WHITE BLOOD COUNT7.03.8 - 11.6 10*3/uL02/06/2025 11:55 AM [facility] CtrRBC3.763.60 - 5.00 10*6/uL02/06/2025 11:55 AM [facility] OusNYVFUQAIDV10.911.8 - 15.4 g/dL02/06/2025 11:55 AM [facility] LkhOENPWQQWCA31.134.0 - 46.4 %02/06/2025 11:55 AM EDT [facility] XkhJWF78.480 - 100 fL02/06/2025 11:55 AM EDT [facility] BljTZI02.724.7 - 34.3 pg02/06/2025 11:55 AM EDT [facility] VwkTMZT82.932.0 - 35.0 g/dL02/06/2025 11:55 AM [facility] CtrRED CELL DISTRIBUTION WIDTH, RDW19.1(H)11.9 - 15.3 %02/06/2025 11:55 AM [facility] CtrPLATELET PJMSK253 (L)150 - 450 10*3/uL02/06/2025 11:55 AM [facility] CtrMEAN PLATELET VOLUME, MPV9.16.3 - 10.7 fL02/06/2025 11:55 AM [facility] CtrNEUTROPHILS, %54.9. %02/06/2025 11:55 AM [facility] CtrLYMPHOCYTES, %33.1. %02/06/2025 11:55 AM [facility] CtrMONOCYTE/MACROPHAGE, %11.6. %02/06/2025 11:55 AM [facility] CtrEOSINOPHILS, %0.2. %02/06/2025 11:55 AM [facility] CtrBASOPHILS, %0.2. %02/06/2025 11:55 AM [facility] CtrNRBC0.10 - 0.5 /100{WBC}02/06/2025 11:55 AM [facility] CtrNEUTROPHILS3.81.8 - 7.7 10*3/uL02/06/2025 11:55 AM [facility] CtrLYMPHOCYTES2.31.00 - 4.8 10*3/uL02/06/2025 11:55 AM [facility] CtrMONOCYTES0.80.0 - 0.8 10*3/uL02/06/2025 11:55 AM [facility] CtrEOSINOPHILS0.00.0 - 0.45 10*3/uL 02/06/2025 11:55 AM [facility] CtrBASOPHILS0.00.0 - 0.2 10*3/uL02/06/2025 11:55 AM [facility] CtrSpecimen (Source) Anatomical Location / LateralityCollection Method / VolumeCollection Time Received TimeBlood (Blood)02/06/2025 10:35 AM EDT1 10:35 AM EDT Narrative Authorizing ProviderResult TypeResult StatusRoxane Bills MDLAB BLOOD ORDERABLES Final ResultPerforming OrganizationAddressCity/State/ZIP CodePhone Number [facility] [address] [place] [address], [facility] [address] [place] [address] documented in this encounter Visit Diagnoses Not on filedocumented in this encounter Care Teams Team MemberRelationshipSpecialtyStart DateEnd Date Giovanni Moreno MD [address] [place] [address] PCP - GeneralFamily Medicine09/18/22documented as of this encounter
--- OUTSIDE RECORDS SUMMARY | 2025-02-09 14:20 | XMS_ITS | Clinical Summary ---
Author Organization [facility] Address [address] [place] [address] Care Team Providers Care Candy Spreader Helper Name Role Phone Giovanni Moreno MD Primary Care Provider [phone] Allergies Active AllergyReactionsCriticalityNoted DateCommentsCodeineItching,RashLow 09/22/2022HoneyAnaphylaxis,RqlcuEsbs11/28/7396ZtfrjfcqRstlUiz39/12/2023 Gastrointestinal Upset SoxiyediYobjraiaeigvlqZrr70/22/2024 Medications MedicationSigDispense QuantityRefillsLast FilledStart DateEnd DateStatus amLODIPine (Norvasc) 10 MG tablet Take 10 mg by mouth Daily07/21/2022ctive Rexulti 4 MG tablet Take 1 tablet by mouth Daily08/21/2022ctive Coreg 25 MG tablet Take 25 mg by mouth every 12 (twelve) hoursActive Cholecalciferol (Vitamin D) 50 MCG (1999) capsule Take 1 capsule by mouth 1 (one) time each day at the same timeActive colestipol (Colestid) 1 g tablet Take 2 g by mouth 1 (one) time each day at the same timeActive dicyclomine (Bentyl) 20 MG tablet Take 20 mg by mouth as needed in the morning and 20 mg as needed at noon and 20 mg as needed in theevening.09/02/2022ctive DULoxetine (Cymbalta) [address] capsule Take 60 mg by mouth Daily06/24/2022ctive sucralfate (Carafate) 1 g tablet every 12 (twelve) hoursActive oxybutynin XL (Ditropan XL) 10 MG 24 hr tablet 1 (one) time each day at the same timeActive omeprazole (PriLOSEC) [address] capsule 1 (one) time each day at the same timeActive levothyroxine (Synthroid, Levoxyl) 75 MCG tablet 01/01/2022ctive fluticasone (Flonase) 50 MCG/ACT nasal spray Indications:Chronic obstructive pulmonary disease, unspecified (HCC)USE 1 SPRAY INTO EACH NOSTRIL EVERY DAY FOR 30 DAYS 16 mL 12/05/2022ctive HYDROcodone-acetaminophen ([place]) 5-325 MG tablet 02/06/2023ctive hydrOXYzine HCl (Atarax) 10 MG tablet 12/30/2022ctive prednisoLONE acetate (Pred-Forte) 1 % ophthalmic suspension 01/26/2023ctive tiZANidine (Zanaflex) 4 MG tablet Take 4 mg by mouth in the eveningActive Refresh Tears 0.5 % ophthalmic solution 03/18/2023ctive Continuous Blood Gluc Sensor (FreeStyle Alfredo 2 Sensor) [facility] 07/01/2023ctive BD Pen Needle Micro U/F 32G X 6 MM [facility] 05/05/2023ctive Fetzima 120 MG extended release capsule 07/06/2023ctive mirtazapine (Remeron) 45 MG tablet 07/06/2023ctive olopatadine (Patanol) 0.1 % ophthalmic solution 06/26/2023ctive furosemide (Lasix) 40 MG tablet 05/17/2023ctive diclofenac sodium 1 % gel Indications:Diabetes mellitus due to underlying condition with diabetic polyneuropathy, with long-term current use of insulin ([facility])APPLY 4 GRAMS TO AFFECTED AREA 4 TIMES DAILY 100 g ctive aspirin 81 MG EC tablet 07/01/2023ctive clobetasol (Temovate) 0.05 % cream 11/08/2023ctive cloNIDine (Catapres) 0.1 MG tablet 07/01/2023ctive loperamide (Imodium A-D) 2 MG tablet 1 wpabwz4907/01/2023ctive zonisamide (Zonegran) 25 MG capsule 07/01/2023ctive gabapentin (Neurontin) 600 MG tablet 01/05/2024ctive budesonide-formoterol (Symbicort) 160-4.5 MCG/ACT inhaler Indications:Chronic obstructive pulmonary disease, unspecified COPD type (HCC) Inhale 2 puffs in the morning and 2 puffs before bedtime. Rinse mouth with water after use to reduce aftertaste and incidence of candidiasis. Do not swallow.. 1 each ctive ipratropium-albuterol (Duo-Neb) 0.5-2.5 mg/3 mL nebulizer solution Indications:Chronic obstructive pulmonary disease, unspecified COPD type (HCC) Take 3 mL by nebulization 4 (four) times a day as needed for wheezing or shortness of breath 360 mL ctive montelukast (Singulair) 10 MG tablet Indications:Chronic obstructive pulmonary disease, unspecified COPD type (HCC) Take 1 tablet (10 mg) by mouth 1 (one) time each day at the same time 30 tablet ctive theophylline ER (Nishant-24) 200 MG 24 hr capsule Indications:Chronic obstructive pulmonary disease, unspecified COPD type (HCC) Take 1 capsule (200 mg) by mouth 1 (one) time each day at the same time 30 capsule ctive albuterol HFA 90 mcg/act inhaler Indications:Chronic obstructive pulmonary disease, unspecified COPD type (HCC) INHALE 2 PUFFS IN THE MORNING AND 2 PUFFS IN THE EVENING AND 2 PUFFS BEFORE BEDTIME. 18 g 5Active insulin aspart (NovoLOG FLEXPEN) 100 UNIT/ML pen Indications:Type 2 diabetes mellitus with hyperglycemia, with long-term current use of insulin (HCC)Inject 40 Units under the skin in the morning and 40 Units at noon and 40 Units in the evening. Inject before meals. 120 mL 5Active dapagliflozin (Farxiga) 10 MG Indications:Type 2 diabetes mellitus with hyperglycemia (HCC)Take 1 tablet (10 mg) by mouth Daily 90 tablet 5Active busPIRone (Buspar) 5 MG tablet TAKE 1 TABLET BY ORAL ROUTE 1 TIMES PER DAY IN THE FRIHDXIWO68/28/2025Active hydrOXYzine HCl (Atarax) 25 MG tablet Take 25 mg by mouth 3 (three) times a day as needed for wzyaxff08/02/2025Active Continuous Glucose Mincemeat Maker (Corcept TherapeuticsStyle Alfredo 3 [place]) device Indications:Type 2 diabetes mellitus with hyperglycemia, with long-term current use of insulin (HCC)USE DIRECTED 1 each 5Active Semaglutide,0.25 or 0.5MG/DOS, (Ozempic, 0.25 or 0.5 MG/DOSE,) 2 MG/3ML solution pen-injector Indications:Type 2 diabetes mellitus with hyperglycemia, with long-term current use of insulin (HCC)INJECT 0.5 MG UNDER THE SKIN 1 (ONE) TIME PER WEEK 6 mL 5Active insulin glargine (Lantus SoloStar) 100 UNIT/ML pen Indications:Type 2 diabetes mellitus with hyperglycemia, with long-term current use of insulin (HCC)Inject 40 Units under the skin in the morning and 40 Units before bedtime. 72 mL 5Active semaglutide (Ozempic, 1 MG/DOSE,) 2 MG/1.5ML solution pen-injector Indications:Type 2 diabetes mellitus with hyperglycemia, with long-term current use of insulin (HCC)Inject 1 mg under the skin 1 (one) time per week 9 mL 501/6Active glucose blood (True Metrix Blood Glucose Test) test strip Indications:Type 2 diabetes mellitus with hyperglycemia, with long-term current use of insulin (HCC)USE TWICE A DAY TO TEST BLOOD SUGARS. 200 each 508/6Active True Comfort Twist Top Lancets [facility] Indications:Type 2 diabetes mellitus with hyperglycemia, with long-term current use of insulin (HCC)USE TWICE A DAY WITH LANCING DEVICE. 200 each 5Active Continuous Glucose Sensor (FreeStyle Alfredo 3 Plus Sensor) [facility] Indications:Type 2 diabetes mellitus with hyperglycemia, with long-term current use of insulin (HCC)1 Bar Every 15 Days 6 each /Expired Active Problems ProblemNoted DateDiagnosed DateObstructive sleep apnea tjadwlbn95/08/2021hronic obstructive pulmonary ekdrkhj9307/19/2020 Resolved Problems ProblemNoted DateDiagnosed DateResolved DateAcute gwpoojkyzjyl00/03/2024 01/14/2024cute metabolic dixlcsaeeurbxv69/03/202410/KI (acute kidney injury)ipolar 1 dlxwvgho55ipolar disorder with fkozljlzel68reast cancer screening by mammogram hronic xhcfsumqim62hronic hypercapnic respiratory qzdyijw90hronic uznlxyf14 Fhzjrkkw12egenerative joint disease of cervical and lumbar spineehydrationiarrhea01/14/2024 01/14/2024isorder of sacroiliac jointElevated troponin Epigastric painGait instability Hallucinations, ntpwdu17Hemosiderin pigmentation of skinHypomagnesemia Cqzdtyzx40HypothyroidismThyroid disease Iron deficiency fsyhss89Irritable bowel shespjr70Kidney sozgdlw58Long term (current) use of fgzgoyq51Lumbar degenerative disc emvyrpq2101/14/2024 01/14/2024Lumbosacral spondylosis without hqvzgpssuu24Major depressive disorder with psychotic measlobp56Monoclonal dyhwekkjwy88Morbid obesity with BMI of 45.0-49.9, adult Multiple falls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)On home oxygen dvmcaeq84Other chronic pain Peripheral edemaruritic erythematous rash01/14/2024 01/14/20245858Rrsdpubhxxnqkj43/03/202410/03/2024Stage 3 chronic kidney disease Type 2 diabetes mellitus without ohukdbhqhgagq05/03/2024 01/14/2024UTI (urinary tract infection)Venous reflux Symptomatic varicose veins of both lower extremities Venous stasis ulcer limited to breakdown of skin without varicose veinsUlcer of left lower leg Diabetic pnuzaprkpy11 Encounters DateTypeDepartmentCare YmafXidjtxviuil82/27/2025External Result Encounter [facility] Unsolicited Roxane Bills MD 02/06/2025External Result Encounter [facility] External Department Unsolicited Roxane Bills MD 02/06/2025External Result Encounter [facility] External Department Unsolicited Roxane Bills MD 02/06/2025External Result Encounter [facility] External Department Unsolicited Roxane Bills MD 01/17/2025External Result Encounter [facility] External Department Unsolicited Roxane Bills MD 01/17/2025External Result Encounter [facility] External Department Unsolicited Roxane Bills MD 12/26/2024External Result Encounter [facility] External Department Unsolicited Roxane Bills MD 12/26/2024External Result Encounter [facility] External Department Unsolicited Roxane Bills MD 12/21/2024External Result Encounter [facility] External Department Unsolicited Roxane Bills MD 12/21/2024External Result Encounter [facility] External Department Unsolicited Roxane Bills MD 12/21/2024External Result Encounter [facility] External Department Unsolicited Roxane Bills MD 12/21/2024External Result Encounter [facility] External Department Unsolicited Roxane Bills MD 12/19/2024 9:00 AM EDTOffice Visit [facility] [address] [place] [address] Mack Pride DPM Diabetes mellitus due to underlying condition with diabetic polyneuropathy, with long-term current use of insulin (HCC) (Primary Dx); Pain due to onychomycosis of toenails of both feet; Xerosis cutis12/19/2024External Result Encounter [facility] External Department Unsolicited Roxane Bills MD 12/19/2024External Result Encounter [facility] External Department Unsolicited Roxane Bills MD 12/19/2024amboo flowsheet [facility] [address] [place] [phone] Mack Pride DPM 12/13/2024External Result Encounter [facility] External Department Unsolicited Roxane Bills MD 12/13/2024External Result Encounter [facility] External Department Unsolicited Roxane Bills MD 12/06/2024External Result Encounter [facility] External Department Unsolicited Roxane Bills MD 12/06/2024External Result Encounter [facility] External Department Unsolicited Roxane Bills MD 12/06/2024External Result Encounter [facility] External Department Unsolicited Roxane Bills MD 12/05/2024External Result Encounter [facility] External Department Unsolicited Roxane Bills MD 12/05/2024External Result Encounter [facility] External Department Unsolicited Roxane Bills MD 11/28/2024Telephone [facility] [address] [place] [phone] Jeannie Aguilar MD Med Ivtejf07/18/2025External Result Encounter [facility] External Department Unsolicited Roxane Bills MD 11/28/2024External Result Encounter [facility] External Department Unsolicited Roxane Bills MD 11/22/2024Telephone [facility] [address] [place] [address] Svetlana Garcia DO 11/21/2024External Result Encounter [facility] External Department Unsolicited Roxane Bills MD 11/21/2024External Result Encounter [facility] External Department Unsolicited Roxane Bills MD 11/15/2024External Result Encounter [facility] External Department Unsolicited Roxane Bills MD 11/15/2024Telephone [facility] [address] [place] [address] Jeannie Aguilar MD Med Xilmlx8511/14/2024 9:00 AM EDTOffice Visit [facility] [address] [place] [address] Jeannie Aguilar MD Vitamin D deficiency (Primary Dx); Type 2 diabetes mellitus with hyperglycemia, with long-term current use of insulin (HCC); Primary hypertension ; Hyperlipemia, mixed ; Insulin long-term use (HCC); Encounter for dietary consultation; Stage 3b chronic kidney disease ([facility]-HCC)11/14/2024amboo flowsheet [facility] [address] [place] [address] Jeannie Aguilar MD 11/10/2024External Result Encounter [facility] External Department Unsolicited Roxane Bills MD 11/10/2024External Result Encounter [facility] External Department Unsolicited Roxane Bills MD 11/10/2024External Result Encounter [facility] External Department Unsolicited Roxane Bills MD from Last 3 Months Immunizations ImmunizationAdministration DatesNext DueHepB-CpG12/16/2022,06/13/2022Influenza Whole02/23/2013Influenza, injectable, MDCK, preservative free, quadrivalent 12/25/2021,01/03/2021,02/16/2019Influenza, injectable, MDCK, quadrivalent 01/28/2018Influenza, injectable, acuumcxsqbuo65/01/2017Influenza, injectable, quadrivalent, preservative free12/12/2022,07/01/2022,01/16/2020Influenza, seasonal, hunivgqqnv51/14/2022,01/03/2021Influenza, trivalent, adjuvanted 12/17/2023Moderna SARS-CoV-2 Booster Cewrdhibwrb16/29/2021Moderna SARS-CoV-2 Kwyebyuqqmf02/01/2022,03/12/2021,01/24/2021,1Pneumococcal Conjugate PCV 13005/11/2018Pneumococcal Conjugate PCV 2Pneumococcal Polysaccharide TQIM8048,07/31/2020,07/09/2016,05/21/2012RSV, recombinant, protein subunit RSVpreF, adjuvant reconstitu, 120mcg/0.5mL, PF (Arexvy)12/21/2023, 01/28/2023Tdap1,12/25/2021Zoster, Uopblswhfph23/11/2021,09/13/2020 Family History Medical HistoryRelationNameCommentsDiabetesFatherGlaucomaFatherHypertension FatherAlcohol abuseMotherRelationNameStatusCommentsFatherDeceased (Age 90)Mother (Age 32) Social History Tobacco UseTypesPacks/DayYears UsedDateSmoking Tobacco: NeverPassive Smoke Exposure: NeverSmokeless Tobacco: Never Tobacco Cessation:Counseling Given: Yes Alcohol UseStandard Drinks/WeekCommentsNever0 (1 standard drink = 0.6 oz pure alcohol)Caffeine intake: 2-3 cups per dayCommentsUnknownSex and Gender InformationValueDate RecordedSex Assigned at BirthNot on fileLegal SexFemale 06/25/2022 7:13 PM EDTGender IdentityNot on fileSexual OrientationNot on file Last Filed Vital Signs Vital SignReadingTime TakenCommentsBlood Nfdppvpc163/7808 9:04 AM EDT Dygxq1605 9:04 AM EDTTemperature--Respiratory Gwpw697912/19/2024 8:48 AM EDTOxygen Sktqchtzre02%11/14/2024 9:04 AM EDTInhaled Oxygen Concentration-- Wlmzhj868 kg (234 lb)12/19/2024 8:48 AM ZTLZaryou622.4 cm (5')12/19/2024 8:48 AM EDTBody Mass Index45.709 8:48 AM EDT Plan of Treatment DateTypeDepartmentCare Team (Latest Contact Info)Rohsqphnkvk79/24/2025 10:10 AM ESTOffice Visit RE[facility] [address] [place] [address] Jeannie Aguilar MD [address] [place] [address] 03/07/2025 2:00 PM ESTOffice Visit [facility] [address] [address] Svetlana Garcia, [address] [place] [address] 03/13/2025 8:40 AM ESTOffice Visit [facility] [address] [place] [phone] Mack Pride DPM [address] [facility] [address] [place] [address] Health MaintenanceDue DateLast DoneCommentsCT Xdlugbccorae92/28/1959Colonoscopy 1958Colorectal Cancer Vgooekadb10/28/1959FIT-DNA1958FIT1958 FOBT1958 6112Taslngdjanpax77/28/1959MMR Vaccines (1 of 1 - Standard series) 10/09/19590991Bdchmdrxu80/28/1999DTaP/Tdap/Td Vaccines (3 - Td or Tdap)07/15/2023 01/13/2023, 2COVID-19 Vaccine (2024- season)2024 01/08/2023, 10/28/2021, 06/11/2021, Additional history existsInfluenza Vaccine (#1)509/08/2023, 12/12/2022, 07/01/2022, Additional history exists Pneumococcal Vaccine: 65+ HclujNmsxocdly53/08/2022, 10/28/2021, 07/31/2020, Additional history existsHepatitis B JdvcjvnpAsgryvmgn14/05/2023, 06/13/2022HIB VaccinesAged OutNo longer eligible based on patient's age to complete this topic HPV VaccinesAged OutNo longer eligible based on patient's age to complete this topicHepatitis A VaccinesAged OutNo longer eligible based on patient's age to complete this topicIPV VaccinesAged OutNo longer eligible based on patient's age to complete this topicMeningococcal B VaccineAged OutNo longer eligible based on patient's age to complete this topicMeningococcal VaccineAged OutNo longer eligible based on patient's age to complete this topicRotavirus VaccinesAged Out No longer eligible based on patient's age to complete this topic Procedures Procedure NamePriorityDate/TimeAssociated DiagnosisCommentsIMMUNOFIXATION,SERUM ([facility]Mxexeda0302/06/2025 10:35 AM EDT PROTEIN ELECTRO, RANDOM NUYWEXwcjqzp77/27/2025 10:35 AM EDT FREE K+L LT CHAINS, QN, UJmduzmi37/27/2025 10:35 AM EDT PROTEIN ELECTROPHORESIS, LYNJHUsqpfio24/27/2025 10:35 AM EDT LACTATE SJTAEAMTYPGNTUcakyiz85/ 10:35 AM EDT COMPREHENSIVE METABOLIC RYDBHZjnbslp18/27/2025 10:35 AM EDT CBC WITH AUTO NNEHDXATUBUJStcfuad25/27/2025 10:35 AM EDT SCAN AND TIORtqnipv59/07/2025 2:15 PM EDT COMPREHENSIVE METABOLIC JSBFFNvrlshj19/07/2025 2:15 PM EDT DIFF AND LSRCFMW4612/26/2024 10:05 AM EDT COMPREHENSIVE METABOLIC CJLTRPVEF31/15/2025 10:05 AM EDT XR CHEST 2 VIEWS12/21/2024 4:14 PM EDT URINALYSIS, MANUAL LZRRLUUX70/10/2025 10:30 AM EDT CULTURE, EIKKCVEMS09/10/2025 9:30 AM EDT CULTURE, CCEXLTHVU47/10/2025 9:20 AM EDT COMPREHENSIVE METABOLIC XQYWTWDLH78/08/2025 9:33 AM EDT CBC WITH AUTO CBJREGQSMBFMRWOP80/08/2025 9:33 AM EDT SCAN AND WKBDMIU3012/13/2024 8:57 AM EDT COMPREHENSIVE METABOLIC LPETJPCKV03/02/2025 8:57 AM EDT PROTEIN ELECTRO, RANDOM AGFRVTzagswz70/26/2025 12:05 PM EDT FREE K+L LT CHAINS, QN, SSTAT12/06/2024 11:25 AM EDT PROTEIN ELECTROPHORESIS, NNUNBNXQT08/ 11:25 AM EDT KZYLSFHNZBnkmgzw49/26/2025 11:25 AM EDT COMPREHENSIVE METABOLIC IOTHDMMOD52/25/2025 9:11 AM EDT CBC WITH AUTO GKJSCAMFKJFAJHEE76/25/2025 9:11 AM EDT DIFF AND VHSKZBO5811/28/2024 11:25 AM EDT COMPREHENSIVE METABOLIC RJNOBBSUC76/18/2025 11:25 AM EDT COMPREHENSIVE METABOLIC NQOYAPZQI26/11/2025 9:15 AM EDT CBC WITH AUTO XMVNFTWCHEJWAWVM12/11/2025 9:15 AM EDT TRANSTHORACIC ECHO (TTE) XRYWWJKW73/05/2025 8:54 AM EDT POCT GLYCOSYLATED HEMOGLOBIN (HGB A1C)Fvkonfn6811/14/2024 9:06 AM EDT Type 2 diabetes mellitus with hyperglycemia, with long-term current use of insulin (HCC) POCT QUISEPLCthosrw83/04/2025 9:06 AM EDT Type 2 diabetes mellitus with hyperglycemia, with long-term current use of insulin (HCC) HEPATITIS B SURFACE ANTIGEN ([facility])Hbhnnle4811/10/2024 1:59 PM EDT HEPATITIS B CORE AB BAUEMRhwoqgm40/31/2025 1:59 PM EDT HEPATITIS B SURFACE ANTIBODY EZLxossgw97/31/2025 1:59 PM EDT HCV ANTIBODY RFX TO QUANT RTEQcrofdb48/31/2025 1:59 PM EDT COMPREHENSIVE METABOLIC BXFRMJcrxdkz67/31/2025 1:59 PM EDT CBC WITH AUTO BUHGLQEXGZEZYfatqbn91/31/2025 1:59 PM EDT from Last 3 Months Results * PROTEIN ELECTRO, RANDOM URINE (02/06/2025 10:35 AM EDT) Only the most recent of2 resultswithin the time period is included. ComponentValueRef RangeTest MethodAnalysis TimePerformed AtPathologist Signature PROTEIN, TOTAL, URINE9.9Not Estab. mg/dL02/08/2025 3:09 PM EDTFIRELANDSALBUMIN, URINE30.9. %02/08/2025 3:09 PM XCCELOIFEZDYCLRCX-0-WMLDGAVR, URINE2.8. % 02/08/2025 3:09 PM FWTJVVFVUTKXPTSMX-6-VUSWKVOJ, URINE11.3. %02/08/2025 3:09 PM EDTFIRELANDSBETA GLOBULIN, URINE33.8. %02/08/2025 3:09 PM EDTFIRELANDSGAMMA GLOBULIN, URINE21.1. %02/08/2025 3:09 PM EDTFIRELANDSM-SPIKE %Not ObservedNot Observed %02/08/2025 3:09 PM EDTFIRELANDSPLEASE NOTE:Comment.02/08/2025 3:09 PM EDTFIRELANDSComment: Protein electrophoresis scan will follow via computer, mail, or corrosion control specialist delivery. Performed at: ?? - [facility] [address] ??[id number] Stripper Preliminary: Jhoan Rich PhD, Phone: ??[phone] Specimen (Source)Anatomical Location / LateralityCollection Method / Volume Collection TimeReceived UwqzJxbpa63/27/2025 10:35 AM EDT1 10:35 AM EDT Narrative Authorizing ProviderResult TypeResult StatusRoxane Bills MDLAB BLOOD ORDERABLES Final ResultPerforming OrganizationAddressCity/State/ZIP CodePhone Number [facility] [place] [address], * FREE K+L LT CHAINS, QN, S (02/06/2025 10:35 AM EDT) Only the most recent of2 resultswithin the time period is included. ComponentValueRef RangeTest MethodAnalysis TimePerformed AtPathologist Signature FREE KAPPA LIGHT CHAINS, S36.13.3 - 19.4 mg/L1 4:09 PM EDTFIRELANDSFREE LAMBDA LIGHT CHAINS, S16.25.7 - 26.3 mg/L1 4:09 PM EDTFIRELANDS KAPPA/LAMBDA RATIO, S2.230.26 - 1.6502/07/2025 4:09 PM EDTFIRELANDSComment: Performed at: ??CB - [facility] [address] ??[id number] Stripper Preliminary: Jhoan Rich PhD, Phone: ??[phone] Specimen (Source)Anatomical Location / LateralityCollection Method / Volume Collection TimeReceived TimeOtherTopography unknown / Hmpietk1602/06/2025 10:35 AM EDT1 10:35 AM EDT Narrative Authorizing ProviderResult TypeResult StatusRoxane GARCIA BLOOD ORDERABLES Final ResultPerforming OrganizationAddressCity/State/ZIP CodePhone Number [address] [address], * (ABNORMAL) IMMUNOFIXATION,S[place]UM [place] (02/06/2025 10:35 AM EDT)ComponentValue Ref RangeTest MethodAnalysis TimePerformed AtPathologist Signature IMMUNOFIXATION, SERUMComment(AA).02/08/2025 3:09 PM EDTFIRELANDSComment: 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 PLEASE NOTE: Samples from patients receiving DARZALEX(R) (daratumumab) or ??SARCLISA(R)(isatuximab-[facility]) treatment can appear as an ?? IgG kappa and mask a complete response (CR). If this patient ??is receiving these therapies, this MITCH assay interference ??can be removed by ordering test number [id number]- Immunofixation, ??Daratumumab-Specific, Serum or [id number]- Immunofixation, ??Isatuximab-Specific, Serum and submitting a new sample for ??testing or by calling the lab to add this test to the current ??sample. IMMUNOGLOBULIN [id number] - 1,602 mg/dL02/08/2025 3:09 PM EDTFIRELANDS IMMUNOGLOBULIN A, TIHGY28174 - 352 mg/dL02/08/2025 3:09 PM [facility] IMMUN[facility] M, XJVIX7846 - 217 mg/dL02/08/2025 3:09 PM EDTFSWEDISH MEDICAL CENTER ISSAQUAHComment: Performed at: ??CB - [facility] [address] ??[id number] Stripper Preliminary: Jhoan Rich PhD, Phone: ??[phone] Specimen (Source)Anatomical Location / LateralityCollection Method / Volume Collection TimeReceived TimeOtherTopography unknown / Igqkwka2602/06/2025 10:35 AM EDT1 10:35 AM EDT Narrative Authorizing ProviderResult TypeResult StatusRoxane Bills MDLAB BLOOD ORDERABLES Final ResultPerforming OrganizationAddressCity/State/ZIP CodePhone Number [facility] [place] [phone], * (ABNORMAL) CBC auto differential (02/06/2025 10:35 AM EDT) Only the most recent of5 resultswithin the time period is included. ComponentValueRef RangeTest MethodAnalysis TimePerformed AtPathologist Signature WBC7.03.8 - 11.6 [CFU]/mL02/06/2025 11:55 AM [facility] UNCORRECTED WHITE BLOOD COUNT7.03.8 - 11.6 10*3/uL02/06/2025 11:55 AM EDT [facility] CtrRBC3.763.60 - 5.00 10*6/uL02/06/2025 11:55 AM EDT [facility] ArdIWWDTJUKGG60.911.8 - 15.4 g/dL02/06/2025 11:55 AM [facility] QrsNAHWIKZEOV60.134.0 - 46.4 %02/06/2025 11:55 AM [facility] ZzuIKA15.480 - 100 fL02/06/2025 11:55 AM EDT [facility] JqzDZT91.724.7 - 34.3 pg02/06/2025 11:55 AM EDT [facility] NtxUYTA95.932.0 - 35.0 g/dL02/06/2025 11:55 AM EDT [facility] CtrRED CELL DISTRIBUTION WIDTH, RDW19.1(H)11.9 - 15.3 %02/06/2025 11:55 AM [facility] CtrPLATELET KMWOQ609(L)150 - 450 10*3/uL02/06/2025 11:55 AM [facility] CtrMEAN PLATELET VOLUME, MPV9.16.3 - 10.7 fL02/06/2025 11:55 AM [facility] NEUTROPHILS, %54.9. %02/06/2025 11:55 AM [facility] LYMPHOCYTES, %33.1. %02/06/2025 11:55 AM [facility] MONOCYTE/MACROPHAGE, %11.6. %02/06/2025 11:55 AM [facility] CtrEOSINOPHILS, %0.2. %02/06/2025 11:55 AM [facility] BASOPHILS, %0.2. %02/06/2025 11:55 AM [facility] CtrNRBC0.10 - 0.5 /100{WBC}02/06/2025 11:55 AM [facility] CtrNEUTROPHILS 3.81.8 - 7.7 10*3/uL02/06/2025 11:55 AM [facility] LYMPHOCYTES2.31.00 - 4.8 10*3/uL02/06/2025 11:55 AM [facility] CtrMONOCYTES0.80.0 - 0.8 10*3/uL02/06/2025 11:55 AM [facility] CtrEOSINOPHILS0.00.0 - 0.45 10*3/uL02/06/2025 11:55 AM [facility] CtrBASOPHILS0.00.0 - 0.2 10*3/uL02/06/2025 11:55 AM [facility] CtrSpecimen (Source)Anatomical Location / LateralityCollection Method / VolumeCollection TimeReceived TimeBlood (Blood) 02/06/2025 10:35 AM EDT1 10:35 AM EDT Narrative Authorizing ProviderResult TypeResult StatusRoxane Bills MDLAB BLOOD ORDERABLES Final ResultPerforming OrganizationAddressCity/State/ZIP CodePhone Number [facility] [address] [place] [address], [facility] [address] [place] [address] * Protein electrophoresis, serum (02/06/2025 10:35 AM EDT) Only the most recent of2 resultswithin the time period is included. ComponentValueRef RangeTest MethodAnalysis TimePerformed AtPathologist Signature TOTAL PROTEIN, SERUM6.06.0 - 8.5 g/dL02/07/2025 2:08 PM EDTFIRELANDSALBUMIN, SERUM3.12.9 - 4.4 g/dL02/07/2025 2:08 PM NPHTMGONBECLUOBPT-1-BQDDNBQL5.20.0 - 0.4 g/dL02/07/2025 2:08 PM XIHIXQSJCAZKZEITE-3-BUMRKIAS4.90.4 - 1.0 g/dL 02/07/2025 2:08 PM EDTFIRELANDSBETA GLOBULIN1.10.7 - 1.3 g/dL02/07/2025 2:08 PM EDTFIRELANDSGAMMA GLOBULIN0.70.4 - 1.8 g/dL02/07/2025 2:08 PM EDTFIRELANDS M-SPIKEComment:Not Observed g/dL02/07/2025 2:08 PM EDTFIRELANDSComment: SPE shows asymmetrical gamma. Suggest serum MITCH and free light chain analysis for further evaluation. GLOBULIN, TOTAL2.92.2 - 3.9 g/dL02/07/2025 2:08 PM EDTFIRELANDSA/G RATIO1.10.7 - 1.710 2:08 PM EDTFIRELANDSSPE-NOTEComment.02/07/2025 2:08 PM EDT FIRELANDSComment: Protein electrophoresis scan will follow via computer, mail, or corrosion control specialist delivery. Performed at: ?? - [facility] [address] ??[id number] Stripper Preliminary: Jhoan Rich PhD, Phone: ??[phone] Specimen (Source)Anatomical Location / LateralityCollection Method / Volume Collection TimeReceived TimeOtherTopography unknown / Eopnjgo3702/06/2025 10:35 AM EDT1 10:35 AM EDT Narrative Authorizing ProviderResult TypeResult StatusRoxane Rojo Sanju PARKLAB BLOOD ORDERABLES Final ResultPerforming OrganizationAddressCity/State/ZIP CodePhone Number [address] [address], * Lactate dehydrogenase (02/06/2025 10:35 AM EDT)ComponentValueRef RangeTest MethodAnalysis TimePerformed AtPathologist SignatureLDH LACTATE DEHYDROGENASE 172696 - 271 U/L1 1:00 PM [facility] CtrSpecimen (Source)Anatomical Location / LateralityCollection Method / VolumeCollection TimeReceived TimeOtherTopography unknown / Cduortn6102/06/2025 10:35 AM EDT 02/06/2025 10:35 AM EDT Narrative Authorizing ProviderResult TypeResult StatusRoxane Bills LAB BLOOD ORDERABLES Final ResultPerforming OrganizationAddressCity/State/ZIP CodePhone Number [facility] [address] [place] [phone], [facility] [address] [phone] * (ABNORMAL) Comprehensive metabolic panel (02/06/2025 10:35 AM EDT) Only the most recent of9 resultswithin the time period is included. ComponentValueRef RangeTest MethodAnalysis TimePerformed AtPathologist Signature Uvlqysu501(H)70 - 100 mg/dL02/06/2025 1:00 PM [facility] Comment: Random Glucose Reference Range is dependent on time and content of last meal. Glucose of more than 200 mg/dL in a nonstressed, ambulatory subject supports the diagnosis of Diabetes Mellitus. ADA recommended reference range GGV849 - 25 mg/dL02/06/2025 1:00 PM [facility] CtrCREATININE 1.21(H)0.60 - 1.20 mg/dL02/06/2025 1:00 PM [facility] ESTIMATED GFR49.6310502/06/2025 1:00 PM [facility] KrfBaqohr867 136 - 145 mmol/L1 1:00 PM [facility] CtrPotassium, Bld4.03.5 - 5.1 mmol/L1 1:00 PM [facility] Ckbgdnwc5161 - 107 mmol/L1 1:00 PM [facility] Carbon Lnbzbth25.021.0 - 31.0 mmol/L1 1:00 PM [facility] CtrAnion Gap13.06.0 - 15.010 1:00 PM [facility] CtrCalcium8.3(L)8.6 - 10.3 mg/dL02/06/2025 1:00 PM [facility] CtrTOTAL PROTEIN6.2(L)6.4 - 8.9 g/dL02/06/2025 1:00 PM [facility] CtrALBUMIN LEVEL3.83.5 - 5.7 g/dL02/06/2025 1:00 PM EDT [facility] CtrGLOBULIN2.4g/dL02/06/2025 1:00 PM [facility] CtrALBUMIN/GLOBULIN RATIO1.610 1:00 PM [facility] CtrBILIRUBIN,TOTAL0.30.3 - 1.0 mg/dL02/06/2025 1:00 PM EDT [facility] CtrASPARTATE AMINO WVXAHWNEEZX1367 - 39 U/L1 1:00 PM [facility] CtrALANINE KDSJKETBGYHMUADO060 - 52 U/L 02/06/2025 1:00 PM [facility] CtrALKALINE OZPLKJVDUVP202(H)34 - 104 U/L1 1:00 PM [facility] CtrCREATININE CLR CALC YWTMVFWB54.131 1:00 PM [facility] CtrSpecimen (Source)Anatomical Location / LateralityCollection Method / VolumeCollection TimeReceived TimeOtherTopography unknown / Mscfyqm6802/06/2025 10:35 AM EDT 02/06/2025 10:35 AM EDT Narrative Authorizing ProviderResult TypeResult StatusRoxane Bills MDLAB BLOOD ORDERABLES Final ResultPerforming OrganizationAddressCity/State/ZIP CodePhone Number [facility] [address] [place] [address], [facility] [address] [place] [address] * (ABNORMAL) SCAN AND CBC (01/17/2025 2:15 PM EDT) Only the most recent of2 resultswithin the time period is included. ComponentValueRef RangeTest MethodAnalysis TimePerformed AtPathologist Signature WBC3.4(L)3.8 - 11.6 [CFU]/mL01/17/2025 3:19 PM [facility] UNCORRECTED WHITE BLOOD COUNT3.4(L)3.8 - 11.6 10*3/uL01/17/2025 3:19 PM EDT [facility] CtrRBC3.10(L)3.60 - 5.00 10*6/uL01/17/2025 3:19 PM [facility] CtrHEMOGLOBIN9.6(L)11.8 - 15.4 g/dL01/17/2025 3:19 PM [facility] QcdBXXZNQCLYA70.8(L)34.0 - 46.4 %01/17/2025 3:19 PM [facility] XjnMBU24.880 - 100 fL01/17/2025 3:19 PM [facility] YgcXIW41.024.7 - 34.3 pg01/17/2025 3:19 PM EDT [facility] KvwCAXG69.432.0 - 35.0 g/dL01/17/2025 3:19 PM EDT [facility] CtrRED CELL DISTRIBUTION WIDTH, RDW23.3(H)11.9 - 15.3 %01/17/2025 3:19 PM [facility] CtrPLATELET COUNT58(L)150 - 450 10*3/uL01/17/2025 3:19 PM [facility] CtrMEAN PLATELET VOLUME, MPV8.76.3 - 10.7 fL01/17/2025 3:19 PM [facility] NEUTROPHILS, %33.1. %01/17/2025 3:59 PM [facility] LYMPHOCYTES, %57.0. %01/17/2025 3:59 PM [facility] MONOCYTE/MACROPHAGE, %9.0. %01/17/2025 3:59 PM [facility] EOSINOPHILS, %0.9. %01/17/2025 3:59 PM [facility] BASOPHILS, %0.0. %01/17/2025 3:59 PM [facility] CtrNRBC0.10 - 0.5 /100{WBC}01/17/2025 3:59 PM [facility] CtrNEUTROPHILS1.1 (L)1.8 - 7.7 10*3/uL01/17/2025 3:59 PM [facility] LYMPHOCYTES2.01.00 - 4.8 10*3/uL01/17/2025 3:59 PM [facility] CtrMONOCYTES0.30.0 - 0.8 10*3/uL01/17/2025 3:59 PM [facility] CtrEOSINOPHILS0.00.0 - 0.45 10*3/uL01/17/2025 3:59 PM [facility] CtrBASOPHILS0.00.0 - 0.2 10*3/uL01/17/2025 3:59 PM [facility] EzqJTUSFVIMMKVWXDehiob72/07/2025 3:59 PM [facility] XddVOBFDXYMLKEIDRFeybitfm29/07/2025 3:59 PM [facility] XirDRWENWOPWENKKcrlkf81/07/2025 3:59 PM [facility] CtrTEAR DROP CPPSGGmyenv50/07/2025 3:59 PM [facility] UYXDDVSUQWJaubqq02/07/2025 3:59 PM [facility] CtrPLATELET KSHJPSUYHcqjwoucwZxpxqq10/07/2025 3:59 PM [facility] PLATELET EZCPRIRWXCNbgfbjBiqpju68/07/2025 3:59 PM [facility] CtrSpecimen (Source)Anatomical Location / LateralityCollection Method / Volume Collection TimeReceived TimeBlood (Blood)01/17/2025 2:15 PM EDT1 2:15 PM EDT Narrative Authorizing ProviderResult TypeResult StatusRoxane Bills MDLAB BLOOD ORDERABLES Final ResultPerforming OrganizationAddressCity/State/ZIP CodePhone Number [address] [address], [facility] [address] [place] [address] * (ABNORMAL) DIFF AND CBC (12/26/2024 10:05 AM EDT) Only the most recent of2 resultswithin the time period is included. ComponentValueRef RangeTest MethodAnalysis TimePerformed AtPathologist Signature WBC2.8(L)3.8 - 11.6 [CFU]/mL12/26/2024 10:55 AM [facility] CtrUNCORRECTED WHITE BLOOD COUNT2.8(L)3.8 - 11.6 10*3/uL12/26/2024 10:55 AM EDT [facility] CtrRBC4.163.60 - 5.00 10*6/uL12/26/2024 10:[facility] UorRQEZLSHRZJ36.011.8 - 15.4 g/dL12/26/2024 10:55 AM [facility] BckSMXTGHAIMM38.034.0 - 46.4 %12/26/2024 10:55 AM [facility] QjkNSQ86.080 - 100 fL12/26/2024 10:55 AM EDT [facility] WzqVIX41.924.7 - 34.3 pg12/26/2024 10:55 [facility] IehHYAI62.432.0 - 35.0 g/dL12/26/2024 10:55 AM [facility] CtrRED CELL DISTRIBUTION WIDTH, RDW15.311.9 - 15.3 % 12/26/2024 10:55 AM [facility] CtrPLATELET COUNT4(LL)150 - 450 10*3/uL12/26/2024 11:26 AM [facility] CtrComment: Critical value result called at 1126 on 12/26/24 MEAN PLATELET VOLUME, MPV12.0(H)6.3 - 10.7 fL12/26/2024 10:55 AM [facility] CtrSEGMENTED HXJYFHEIYXG24(L)50 - 70 %12/26/2024 11:36 AM EDT [facility] CtrBAND LKMMXFRSDHK88 - 5 %12/26/2024 11:36 AM EDT [facility] MvfPTIHEWKMUTG2501 - 42 %12/26/2024 11:36 AM EDT [facility] CtrREACTIVE DLDUQISHDSK58 - 12 %12/26/2024 11:36 AM [facility] AmxQVRIYBZBE61 - 11 %12/26/2024 11:36 AM EDT [facility] TeeLAPFMDUMOFX66(H)1 - 3 %12/26/2024 11:36 AM EDT [facility] CtrRBC SZZEGUOFVQFkbspdKggtlw40/15/2025 11:36 AM EDT [facility] CtrPLATELET YCUIVHEOZwisxvzqvAtlphl16/15/2025 11:36 AM [facility] CtrPLATELET RXUZECNNTIXcsmfkLqxwyq34/15/2025 11:36 AM [facility] CtrSpecimen (Source)Anatomical Location / LateralityCollection Method / VolumeCollection TimeReceived TimeBlood (Blood) 12/26/2024 10:05 AM EDT12/26/2024 10:05 AM EDT Narrative Authorizing ProviderResult TypeResult StatusRoxane Bills MDLAB BLOOD ORDERABLES Final ResultPerforming OrganizationAddressCity/State/ZIP CodePhone Number [facility] [address] [place] [phone], [facility] [address] [place] [address] * XR chest 2 views (12/21/2024 4:14 PM EDT)Anatomical RegionLateralityModality ChestRadiographic ImagingSpecimen (Source)Anatomical Location / Laterality Collection Method / VolumeCollection TimeReceived Time12/21/2024 4:14 PM EDT Impressions 12/21/2024 4:17 PM EDT SCATTERED AREAS OF LUNG SCARRING. ??NO CONSOLIDATION TO SUGGEST PNEUMONIA. ? Impression dictated by: Manish Mccurdy Jr., D.O. ??12/21/2024 4:15 PM ? Dictation Location: RADIO--22 ? Transcribed By: ? PWS ?12/21/24 1615 ? Dictated By: ?Manish Mccurdy Jr, DO ?12/21/24 1614 ? Signed By: <Electronically signed by Manish Mccurdy Jr, DO in OV> ?12/21/24 1615 Narrative 12/21/2024 4:17 PM EDT [facility] ?[facility] [place] ?[address] ? [place] [address] ?XRay Report ? Signed ? Patient: Kelsea Turcios ?MR#: [id number] ?? 58 ? : 1960 ?Acct:[id number] ? Age/Sex: 64 / F ?ADM Date: 12/21/24 ? Loc: XT ?Room: ?Type: REG RCR ?? Attending Dr: Roxane Bills MD ?? Copies to: Roxane Bills MD ? Ordering Provider: Roxane Bills MD ?? Date of Service: 12/21/24 ?? XR/XR chest 2V*: C90.00 - Multiple myeloma not having achieved remission? Chest 2 views ? CLINICAL HISTORY: Shortness of breath fever for 4 weeks. ??History of multiple myeloma. ? COMPARISON: Chest 06/20/2021 ? FINDINGS: ? Heart normal in size. ??Scattered areas of lung scarring similar to the prior study. ??No consolidation pneumothorax pleural effusion or free air. ? XR/XR chest 2V* ?? Procedure Note Manish Mccurdy Jr., DO - 12/21/2024 [facility] [place] [address] [place], [place] [id number] XRay Report Signed Patient: Kelsea Turcios MMR#: [id number] 58 : 9Acct:[id number] Age/Sex: 64 / FADM Date: 12/21/24 Loc: Room:Type: [facility] Attending Dr: Roxane Bills MD Copies to: Roxane Bills MD Ordering Provider: Roxane Bills MD Date of Service: 12/21/24 XR/XR chest 2V*: C90.00 - Multiple myeloma nothaving achieved remission Chest 2 views CLINICAL HISTORY: Shortness of breath fever for 4 weeks. History ofmultiple myeloma. COMPARISON: Chest 06/20/2021 FINDINGS: Heart normal in size. Scattered areas of lung scarring similar to theprior study. No consolidation pneumothorax pleural effusion or free air. XR/XR chest 2V* IMPRESSION: SCATTERED AREAS OF LUNG SCARRING. NO CONSOLIDATION TO SUGGEST PNEUMONIA. Impression dictated by: Manish Mccurdy Jr., D.OJane 12/21/2024 4:15 PM Dictation Location: [place] [address] Transcribed By: [facility] 12/21/24 1615 Dictated By: Manish Mccurdy Jr, DO 12/21/24 1614 Signed By: <Electronically signed by Manish Mccurdy Jr, DO inOV> 12/21/24 1615 Authorizing ProviderResult TypeResult StatusRoxane Bills MDIMG XR PROCEDURESFinal Result * Urinalysis, manual only (12/21/2024 10:30 AM EDT)ComponentValueRef RangeTest MethodAnalysis TimePerformed AtPathologist SignatureCOLOR,URINELight-Yellow Oheois1612/21/2024 10:57 AM [facility] CtrAPPEARANCE,URINE TnyceCcijs84/10/2025 10:57 AM [facility] CtrSPECIFICY GRAVITY,URINE1.0101.001 - 1.26074 10:57 AM [facility] CtrPH,URINE5.55.0 - 9.009 10:57 AM [facility] CtrLEUKOCYTE ESTERASE,CFBFKDoxidyikZbnlywyg99/10/2025 10:57 AM EDT [facility] CtrNITRITE,SAFLIOfwxyljtBhbaxbmj63/10/2025 10:57 AM [facility] CtrPROTEIN,URINENegativeNegative mg/dL 12/21/2024 10:57 AM [facility] CtrGLUCOSE,URINE (UA)>=1,000 Normal mg/dL12/21/2024 10:57 AM [facility] CtrKETONES,URINE BluupajrDchghajn23/10/2025 10:57 AM [facility] UROBILINOGEN,URINENormalNormal mg/dL12/21/2024 10:57 AM [facility] CtrBILIRUBIN,OJPUJAxdgvzqgZcamyosc44/10/2025 10:57 AM [facility] CtrOCCULT BLOOD,DTYBQAcsujrhlXtnuxfsw89/10/2025 10:57 AM EDT [facility] CtrSpecimen (Source)Anatomical Location / LateralityCollection Method / VolumeCollection TimeReceived TimeOther 12/21/2024 10:30 AM EDT12/21/2024 10:32 AM EDT Narrative [facility] - 12/21/2024 10:57 AM EDT Name Collection Type:: Clean-Voided Midstream Authorizing ProviderResult TypeResult StatusRoxane Bills MDLAB URINE ORDERABLES Final ResultPerforming OrganizationAddressCity/State/ZIP CodePhone Number [facility] [address] [place] [address], [facility] [address] [place] [address] * Blood culture (12/21/2024 9:30 AM EDT) Only the most recent of2 resultswithin the time period is included. ComponentValueRef RangeTest MethodAnalysis TimePerformed AtPathologist Signature [facility] NOTENO GROWTH 5 DAYS12/26/2024 9:36 AM [facility] Specimen (Source)Anatomical Location / LateralityCollection Method / Volume Collection TimeReceived TimeBlood (Blood)12/21/2024 9:30 AM EDT12/21/2024 9:36 AM EDTComment:Left Wrist Narrative Authorizing ProviderResult TypeResult StatusRoxane GARCIA MICROBIOLOGY - GENERAL ORDERABLESFinal ResultPerforming OrganizationAddressCity/State/ZIP [facility] Phone Number [facility] [address] [place] [address], [facility] [address] [place] [address] * (ABNORMAL) Magnesium (12/06/2024 11:25 AM EDT)ComponentValueRef RangeTest MethodAnalysis TimePerformed AtPathologist SignatureMAGNESIUM1.3(L)1.9 - 2.7 mg/dL12/06/2024 12:00 PM [facility] CtrSpecimen (Source) Anatomical Location / LateralityCollection Method / VolumeCollection Time Received TimeOtherTopography unknown / Feihtcc7212/06/2024 11:25 AM EDT 12/06/2024 11:33 AM EDT Narrative Authorizing ProviderResult TypeResult StatusRoxane GARCIA BLOOD ORDERABLES Final ResultPerforming OrganizationAddressCity/[facility]Phone [facility] [address] [place] [address], [facility] [address] [place] [address] * Transthoracic echo (TTE) complete (11/15/2024 8:54 AM EDT)Anatomical Region LateralityModalityHeartUltrasoundSpecimen (Source)Anatomical Location / LateralityCollection Method / VolumeCollection TimeReceived Time11/15/2024 8:54 AM EDT Narrative 11/15/2024 2:07 PM EDT [facility] ?[facility] [place] ?[address] [facility] ? [place] [address] ? Echocardiogram ? Signed ? Patient: Tam,Kelsea M ?MR#: [id number] ?? 58 ? : 1960 ?Acct:[id number] ? Age/Sex: 64 / F ?ADM Date: 08/05/25 ? Loc: XT ?Room: ?Type: REG RCR ?? Attending Dr: Roxane Bills MD ? Ordering Provider: Roxane Bills MD ?? Date of Service: 11/15/2409/04/852 ?? [facility] echo transthoracic: Z76.89 - Persons encountering health services in other sp... ? Copies to: Roxane Bills MD ?? Alida Moreland MD ? Weight: 235 lb ? Performed By: SWATHI Javier ?? BSA: 2.0 m2 ?BP: 145/90 mmHg ?? HR: 97 ?? Reason For Study: Z76.89 - Persons encountering health services in other sp... ?? History: HTN, DM, COPD, Asthma ? Interpretation Summary ?? Ejection Fraction = 65-70%. ?? The left ventricular size and thickness are normal. ?? No regional wall motion abnormalities noted. ?? A variety of Doppler measurements indicate normal left ventricular diastolic ?? function. ?? Normal global longitudinal strain -20.8% ? Procedure/Quality: ?? A two-dimensional transthoracic echocardiogram with color ?? flow and Doppler was performed. The study was technically good in quality. ?? Left Ventricle: ?? The left ventricular size and thickness are normal. Ejection ?? Fraction = 65-70%. Normal global longitudinal strain -20.8%. A variety of ?? Doppler measurements indicate normal left ventricular diastolic function. No ?? regional wall motion abnormalities noted. ?? Left Atrium: ?? The left atrium appears normal in size. ?? Right Atrium: ?? The right atrium appears normal in size. ?? Right Ventricle: ?? The right ventricle is normal in size and function. ?? Aortic Valve: ?? The aortic valve is normal in structure. No hemodynamically ?? significant valvular aortic stenosis. No aortic regurgitation is present. ?? Mitral Valve: ?? The mitral valve is normal in structure. No significant mitral ?? valve stenosis. There is no mitral regurgitation noted. ?? Tricuspid Valve: ?? The tricuspid valve is normal in structure. No tricuspid ?? regurgitation. ?? Pulmonic Valve: ?? The pulmonic valve is not well visualized. No significant ?? pulmonic regurgitation. ?? Arteries: ?? The aortic root is normal size. ?? Pericardium/Pleura: ?? No pericardial effusion seen. ?? IVC/Hepatic Veins: ?? The inferior vena cava is normal in size, with a normal ?? collapsibility index. ?? Measurements with Normals ?? IVSd: 0.98 cm ? (0.7-1.1 cm)LVIDd: 3.8 cm ? (3.7-5.4 cm) ?? LVPWd: 1.0 cm ? (0.7-1.1 cm)LVIDs: 2.4 cm ? (2.3-3.6 cm) ?? LA dimension: 3.4 cm ??(2.3-4.0 cm)Ao root diam: 2.8 cm(2.0-3.6 cm) ?? asc Aorta Diam: 3.0 cm(2.1-3.4cm) ? Doppler with Normals ?? LV V1 max: 113.0 cm/sec ??(0.7-1.7m/s)MV E max epifanio: 104.8 cm/sec(0.8-1.3m/s) ?? MV A max epifanio: 41.8 cm/sec(0.0-0.0m/s) ?? MV E/A: 2.5 (<1.5) ?? MMode/2D Measurements ?? Calculations ?? RVDd: 2.4 cm ? FS: 37.4 % ? Ao root area: 5.9 cm2 LVLd ap4: 6.6 cm ?? TAPSE: 2.6 cm ?EDV(Teich): ?EDV(MOD-sp4): ?? RV S Epifanio: ?60.3 ml ?26.5 ml ?? 13.1 cm/sec ?ESV(Teich): ?LVLs ap4: 5.4 cm ? 19.2 ml ?ESV(MOD-sp4): ? EF(Teich): 68.2 % ?7.5 ml ?EF(MOD-sp4): ?71.8 % ? __ ? SV(MOD-sp4): ? LAV(MOD-sp4): ?LA A2 area: 15.4 cm2 ?? 19.0 ml ?21.3 ml ? LAV(MOD-sp2): ?LA A4 area: 10.8 cm2 ? 34.8 ml ?LA length (vol): ?4.4 cm ?LA vol: 31.8 ml ?LA vol index: ?15.7 ml/m2 ? Doppler Measurements ?? Calculations ?? MV dec time: ? MV V2 max: ? E/E' lat: 5.2 ?? MV P1/2t max epifanio: ?? 0.15 sec ? 144.2 cm/sec ? E/E' med: 7.9 ?? 141.6 cm/sec ? MV max P.3 mmHg ?MV P1/2t: 57.8 msec ? MV V2 mean: ? 76.9 cm/sec ?MVA(P1/2t): 3.8 cm2 ? MV mean PG: ?MV dec slope: ? 2.8 mmHg ? 717.8 cm/sec2 ? MV V2 VTI: 39.6 cm ? __ ?? Ao V2 max: ? LV V1 max PG: ?RAP systole: ?? 132.0 cm/sec ? 5.1 mmHg ? 5.0 mmHg ?? Ao max P.0 mmHgLV V1 mean PG: ?? Ao mean PG: ?3.0 mmHg ?? 4.0 mmHg ? LV V1 mean: ?? Ao V2 mean: ?76.6 cm/sec ?? 93.4 cm/sec ?LV V1 VTI: 23.7 cm ?? Ao V2 VTI: 26.3 cm ? Transcribed By: ?SCV ?? Performed At: ?11/15/24853 ?? Signed By: ?Alida Moreland MD ?11/15/24 1407 Procedure Note Alida Moreland MD - 11/15/2024 [facility] [place] [address] [place], [place] [phone] Echocardiogram Signed Patient: Kelsea Turcios MMR#: [id number] 58 : 9Acct:[id number] Age/Sex: 64 / FADM Date: 11/15/24 Loc: XT Room:Type: [facility] RCR Attending Dr: Roxane Bills MD Ordering Provider: Roxane Bills MD Date of Service: 11/15/2409/04/852 [facility] echo transthoracic: Z76.89 - Persons encountering health services in other sp... Copies to: MD Alida Manzo MD Weight: 235 lb Performed By: SWATHI Javier BSA: 2.0 m2 BP: 145/90 mmHg HR: 97 Reason For Study: Z76.89 - Persons encountering health services in othersp... History: HTN, DM, COPD, Asthma Interpretation Summary Ejection Fraction = 65-70%. The left ventricular size and thickness are normal. No regional wall motion abnormalities noted. A variety of Doppler measurements indicate normal left ventriculardiastolic function. Normal global longitudinal strain -20.8% Procedure/Quality: A two-dimensional transthoracic echocardiogram withcolor flow and Doppler was performed. The study was technically good in quality. Left Ventricle: The left ventricular size and thickness are normal.Ejection Fraction = 65-70%. Normal global longitudinal strain -20.8%. A variety of Doppler measurements indicate normal left ventricular diastolic function.No regional wall motion abnormalities noted. Left Atrium: The left atrium appears normal in size. Right Atrium: The right atrium appears normal in size. Right Ventricle: The right ventricle is normal in size and function. Aortic Valve: The aortic valve is normal in structure. Nohemodynamically significant valvular aortic stenosis. No aortic regurgitation is present. Mitral Valve: The mitral valve is normal in structure. No significantmitral valve stenosis. There is no mitral regurgitation noted. Tricuspid Valve: The tricuspid valve is normal in structure. Notricuspid regurgitation. Pulmonic Valve: The pulmonic valve is not well visualized. Nosignificant pulmonic regurgitation. Arteries: The aortic root is normal size. Pericardium/Pleura: No pericardial effusion seen. IVC/Hepatic Veins: The inferior vena cava is normal in size, with anormal collapsibility index. Measurements with Normals IVSd: 0.98 cm (0.7-1.1 cm)LVIDd: 3.8 cm (3.7-5.4 cm) LVPWd: 1.0 cm (0.7-1.1 cm)LVIDs: 2.4 cm (2.3-3.6 cm) LA dimension: 3.4 cm (2.3-4.0 cm)Ao root diam: 2.8 cm(2.0-3.6 cm) asc Aorta Diam: 3.0 cm(2.1-3.4cm) Doppler with Normals LV V1 max: 113.0 cm/sec (0.7-1.7m/s)MV E max epifanio: 104.8cm/sec(0.8-1.3m/s) MV A max epifanio: 41.8 cm/sec(0.0-0.0m/s) MV E/A: 2.5 (<1.5) MMode/2D Measurements Calculations RVDd: 2.4 cm FS: 37.4 % Ao root area: 5.9 cm2 LVLd ap4: 6.6cm TAPSE: 2.6 cm EDV(Teich): EDV(MOD-sp4): RV S Epifanio: 60.3 ml 26.5 ml 13.1 cm/sec ESV(Teich): LVLs ap4: 5.4cm 19.2 ml ESV(MOD-sp4): EF(Teich): 68.2 % 7.5 ml EF(MOD-sp4): 71.8 % __ SV(MOD-sp4): LAV(MOD-sp4): LA A2 area: 15.4 cm2 19.0 ml 21.3 ml LAV(MOD-sp2): LA A4 area: 10.8 cm2 34.8 ml LA length (vol): 4.4 cm LA vol: 31.8 ml LA vol index: 15.7 ml/m2 Doppler Measurements Calculations MV dec time: MV V2 max: E/E' lat: 5.2 MV P1/2t max epifanio: 0.15 sec 144.2 cm/sec E/E' med: 7.9 141.6 cm/sec MV max P.3 mmHg MV P1/2t: 57.8 msec MV V2 mean: 76.9 cm/sec MVA(P1/2t): 3.8 cm2 MV mean PG: MV dec slope: 2.8 mmHg 717.8 cm/sec2 MV V2 VTI: 39.6 cm __ Ao V2 max: LV V1 max PG: RAP systole: 132.0 cm/sec 5.1 mmHg 5.0 mmHg Ao max P.0 mmHgLV V1 mean PG: Ao mean P.0 mmHg 4.0 mmHg LV V1 mean: Ao V2 mean: 76.6 cm/sec 93.4 cm/sec LV V1 VTI: 23.7 cm Ao V2 VTI: 26.3 cm Transcribed By: CONCEPCION Performed At: 11/15/24 0854 Signed By: Alida Moreland MD 11/15/24 1407 Authorizing ProviderResult TypeResult Alex Bills [facility] Final Result * POCT glycosylated hemoglobin (Hb A1C) docked device (11/14/2024 9:06 AM EDT) ComponentValueRef RangeTest MethodAnalysis TimePerformed AtPathologist SignatureHemoglobin A1C12.6Specimen (Source)Anatomical Location / Laterality Collection Method / VolumeCollection TimeReceived TimeBloodVenous blood specimen / Jzvggks4411/14/2024 9:06 AM EDT Narrative Authorizing ProviderResult TypeResult Randell Aguilar MDPOINT OF CARE TEST ENTER/EDIT ORDERABLESFinal Result * POCT glucose manually resulted (11/14/2024 9:06 AM EDT)ComponentValueRef Range Test MethodAnalysis TimePerformed AtPathologist SignatureGlucose Blood, VMW653 mg/dLSpecimen (Source)Anatomical Location / LateralityCollection Method / VolumeCollection TimeReceived TimeBloodCapillary blood specimen / Unknown 11/14/2024 9:06 AM EDT Narrative Authorizing ProviderResult TypeResult StatusJeannie Aguilar MDPOINT OF CARE TEST ENTER/EDIT ORDERABLESFinal Result * HEPATITIS B SURFACE ANTIGEN ([facility]) (11/10/2024 1:59 PM EDT)ComponentValueRef RangeTest MethodAnalysis TimePerformed AtPathologist SignatureHBSAG SCREEN AzlfconvEtvcijax31/01/2025 5:36 AM EDTFIRELANDSSpecimen (Source)Anatomical Location / LateralityCollection Method / VolumeCollection TimeReceived Time OtherTopography unknown / Bpdstco4511/10/2024 1:59 PM EDT11/10/2024 1:59 PM EDT Narrative Authorizing ProviderResult TypeResult StatusRoxane Alia Sanju [facility] BLOOD ORDERABLES Final ResultPerforming OrganizationAddressty/[facility] CodePhone Number [facility] [address] [place] [address], [place] * Hcv antibody rfx to quant pcr (11/10/2024 1:59 PM EDT)ComponentValueRef Range Test MethodAnalysis TimePerformed AtPathologist SignatureHEPATITIS C VIRUS ANTIBODYNon ReactiveNon Erytnege33/01/2025 5:36 AM EDTFIRELANDSINTERPRETATION HEPATITIS CComment.11/11/2024 5:36 AM EDTFIRELANDSComment: Not infected with HCV unless early or acute infection is suspected (which may be delayed in an immunocompromised individual), or other evidence exists to indicate HCV infection. Specimen (Source)Anatomical Location / LateralityCollection Method / Volume Collection TimeReceived TimeOtherTopography unknown / Cfypkka9911/10/2024 1:59 PM EDT11/10/2024 1:59 PM EDT Narrative Authorizing ProviderResult TypeResult StatusRoxane Alia Sanju [facility] BLOOD ORDERABLES Final ResultPerforming OrganizationAddEncompass [facility] CenterPhone Number [facility] [address] [place] [address], [place] * Hepatitis B core antibody, total (11/10/2024 1:59 PM EDT)ComponentValueRef RangeTest MethodAnalysis TimePerformed AtPathologist SignatureHEPATITIS B CORE KSKHSCLNRzohvldjTkiypdxb69/01/2025 5:36 AM EDTFIRELANDSComment: Performed at: ??[facility] - [facility] [address] [place], [place] ??[id number] Stripper Preliminary: Jhoan Rich PhD, Phone: ??[phone] Specimen (Source)Anatomical Location / LateralityCollection Method / Volume Collection TimeReceived TimeOtherTopography unknown / Ceyluip0311/10/2024 1:59 PM EDT11/10/2024 1:59 PM EDT Narrative Authorizing ProviderResult TypeResult StatusRoxane Bills MDLAB BLOOD ORDERABLES Final ResultPerforming OrganizationAddressCity/State/ZIP CodePhone Number [facility] [address] [place] [address], * Hepatitis B surface antibody (11/10/2024 1:59 PM EDT)ComponentValueRef Range Test MethodAnalysis TimePerformed AtPathologist SignatureHEPATITIS B SURFACE ANTIBODYReactive.11/11/2024 5:36 AM EDTFIRELANDSComment: ? Non Reactive: Not immune to HBV infection. ? Equivocal: Unable to determine if anti-HBs ?is present at levels consistent ?with immunity. ?Reactive: Anti-HBs concentration detected ?at greater than 10 mIU/mL. ?Individual is considered to be ?immune to infection with HBV. Specimen (Source)Anatomical Location / LateralityCollection Method / Volume Collection TimeReceived TimeOtherTopography unknown / Eqdphiz2111/10/2024 1:59 PM EDT11/10/2024 1:59 PM EDT Narrative Authorizing ProviderResult TypeResult StatusRoxane Bills MDLAB BLOOD ORDERABLES Final ResultPerforming OrganizationAddressCity/State/ZIP CodePhone Number [facility] [address] [place] [address], from Last 3 Months Insurance Care Teams Team MemberRelationshipSpecialtyStart DateEnd Date Giovanni Moreno MD [address] [place] [address] PCP - GeneralFamily Medicine09/18/22
--- OUTSIDE RECORDS SUMMARY | 2025-02-09 14:20 | XMS_ITS | Encounter Summary ---
Author Organization [facility] Address [address] [place] [address] Care Team Providers Care Tax Clerk Name Role Phone Giovanni Moreno MD Primary Care Provider [phone] Encounter Details DateTypeDepartmentCare Team (Latest Contact Info)Psloclttdgh59/27/2025External Result Encounter [facility] Unsolicited Roxane Bills MD [address] [place] [address] Social History Tobacco UseTypesPacks/DayYears UsedDateSmoking Tobacco: NeverPassive Smoke Exposure: NeverSmokeless Tobacco: NeverAlcohol UseStandard Drinks/WeekComments Never0 (1 standard drink = 0.6 oz pure alcohol)Caffeine intake: 2-3 cups per day CommentsUnknownSex and Gender InformationValueDate RecordedSex Assigned at BirthNot on fileLegal NvfLxpvgc44/15/2023 7:13 PM EDTGender IdentityNot on fileSexual OrientationNot on filedocumented as of this encounter Plan of Treatment DateTypeDepartmentCare Team (Latest Contact Info)Zovsayqxkjy75/24/2025 10:10 AM ESTOffice Visit [facility] [address] [place] [address] Jeannie Aguilar MD [address] [place] [address] 03/07/2025 2:00 PM ESTOffice Visit [facility] [address] [place] [phone] Svetlana Garcia DO [address] [place] [address] 03/13/2025 8:40 AM ESTOffice Visit [facility] [address] [place] [phone] Mack Pride, DPM [address] [facility] [address] [place] [address] documented as of this encounter Procedures Procedure NamePriorityDate/TimeAssociated DiagnosisCommentsFREE K+L LT CHAINS, QN, TKkycfqe96/27/2025 10:35 AM EDT IMM[place]OFIXATION,S[place]UM ([facility] [place]Odvltqf7802/06/2025 10:35 AM EDT PROTEIN ELECTROPHORESIS, UIEKYMgiaqoe28/27/2025 10:35 AM EDT documented in this encounter Results * (ABNORMAL) IMMUNOFIXATION,SERUM ([facility] (02/06/2025 10:35 AM EDT)ComponentValue Ref RangeTest MethodAnalysis TimePerformed AtPathologist Signature IMMUNOFIXATION, SERUMComment(AA).02/08/2025 3:09 PM EDTFIRELANDSComment: 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 PLEASE NOTE: Samples from patients receiving DARZALEX(R) (daratumumab) or ??SARCLISA(R)(isatuximab-irfc) treatment can appear as an ?? IgG kappa and mask a complete response (CR). If this patient ??is receiving these therapies, this MITCH assay interference ??can be removed by ordering test number [id number]- Immunofixation, ??Daratumumab-Specific, Serum or [id number]- Immunofixation, ??Isatuximab-Specific, Serum and submitting a new sample for ??testing or by calling the lab to add this test to the current ??sample. IMMUNOGLOBULIN [id number] - 1,602 mg/dL02/08/2025 3:09 PM EDTFIRELANDS IMMUNOGLOBULIN A, [id number] - 352 mg/dL02/08/2025 3:09 PM EDTFIRELANDS IMMUNOGLOBULIN M, [id number] - 217 mg/dL02/08/2025 3:09 PM EDTFIRELANDSComment: Performed at: ??[address] ??[id number] Lane Marker Installer: Jhoan Rich PhD, Phone: ??[phone] Specimen (Source)Anatomical Location / LateralityCollection Method / Volume Collection TimeReceived TimeOtherTopography unknown / Nevjzsj9502/06/2025 10:35 AM EDT1 10:35 AM EDT Narrative Authorizing ProviderResult TypeResult StatusRoxane Bills MDLAB BLOOD ORDERABLES Final ResultPerforming OrganizationAddressCity/State/[facility] CodePhone Number [place] [phone], * FREE K+L LT CHAINS, QN, S (02/06/2025 10:35 AM EDT)ComponentValueRef RangeTest MethodAnalysis TimePerformed AtPathologist SignatureFREE KAPPA LIGHT CHAINS, S 36.13.3 - 19.4 mg/L1 4:09 PM EDTFIRELANDSFREE LAMBDA LIGHT CHAINS, S 16.25.7 - 26.3 mg/L1 4:09 PM EDTFIRELANDSKAPPA/LAMBDA RATIO, S2.23 0.26 - 1.6502/07/2025 4:09 PM EDTFIRELANDSComment: Performed at: ??[address] ??[id number] [address] Marker Installer: Jhoan Rich PhD, Phone: ??[phone] Specimen (Source)Anatomical Location / LateralityCollection Method / Volume Collection TimeReceived TimeOtherTopography unknown / Gvchlru9002/06/2025 10:35 AM EDT1 10:35 AM EDT Narrative Authorizing ProviderResult TypeResult StatusRoxane GARCIA BLOOD ORDERABLES Final ResultPerforming OrganizationAddressCity/State/ZIP CodePhone Number [facility] [place] [address], * Protein electrophoresis, serum (02/06/2025 10:35 AM EDT)ComponentValueRef RangeTest MethodAnalysis TimePerformed AtPathologist SignatureTOTAL PROTEIN, SERUM6.06.0 - 8.5 g/dL02/07/2025 2:08 PM EDTFIRELANDSALBUMIN, SERUM3.12.9 - 4.4 g/dL02/07/2025 2:08 PM DQPTXATLDAXLGUFUC-9-UVEDNCXK5.20.0 - 0.4 g/dL 02/07/2025 2:08 PM SMGDIVUMLGBJEGGLI-9-MNEULOKI8.90.4 - 1.0 g/dL02/07/2025 2:08 PM EDTFIRELANDSBETA GLOBULIN1.10.7 - 1.3 g/dL02/07/2025 2:08 PM EDT FIRELANDSGAMMA GLOBULIN0.70.4 - 1.8 g/dL02/07/2025 2:08 PM EDTFIRELANDSM-SPIKE Comment:Not Observed g/dL02/07/2025 2:08 PM EDTFIRELANDSComment: SPE shows asymmetrical gamma. Suggest serum MITCH and free light chain analysis for further evaluation. GLOBULIN, TOTAL2.92.2 - 3.9 g/dL02/07/2025 2:08 PM EDTFIRELANDSA/G RATIO1.10.7 - 1.710 2:08 PM EDTFIRELANDSSPE-NOTEComment.02/07/2025 2:08 PM EDT FIRELANDSComment: Protein electrophoresis scan will follow via computer, mail, or carton catcher delivery. Performed at: ??[facility] - [facility] [address] ??[id number] Lane Marker Installer: Jhoan Rich PhD, Phone: ??[phone] Specimen (Source)Anatomical Location / LateralityCollection Method / Volume Collection TimeReceived TimeOtherTopography unknown / Lbuuvbf8602/06/2025 10:35 AM EDT1 10:35 AM EDT Narrative Authorizing ProviderResult TypeResult StatusRoxane Bills MDLAB BLOOD ORDERABLES Final ResultPerforming OrganizationAddressCity/State/ZIP CodePhone Number [facility] [address] [place] [address], documented in this encounter Visit Diagnoses Not on filedocumented in this encounter Care Teams Team MemberRelationshipSpecialtyStart DateEnd Date Giovanni Moreno MD [address] [place] [address] PCP - GeneralFamily Medicine09/18/22documented as of this encounter
--- OUTSIDE RECORDS SUMMARY | 2025-02-09 14:35 | XMS_ITS | CCD ---
Author Organization [facility] ion [facility] Care Team Providers Care Back Winder Name Role Phone Giovanni Moreno Unavailable Domenico Whitmore Unavailable Nicko Mckeon Unavailable Adroe Barroso Unavailable Josafat Nunes Unavailable DO Giovanni Moreno Primary Care Provider MD Roxane Bills Attending Provider DO Giovanni Moreno Attending Provider DO Mohan Groves Referring Provider DO Peri Tyson Attending Provider [phone] Peri Tyson Unavailable DO Giovanni Moreno Primary Care Provider DO Giovanni Moreno Primary Care Provider [phone] DO Peri Tyson Attending Provider [phone] MD Marcus Cummins Attending Provider DO Peri Tyson Primary Care Provider DO Svetlana Garcia Referring Provider [phone] DO Giovanni Moreno Primary Care Provider [phone] DO Peri Tyson Attending Provider MD Roxane Bills Attending Provider DO Mohan Groves Referring Provider Tyson, DO Peri A Primary Care Provider Tyson, DO Peri A Attending Provider MD Roxane Bills Attending Provider [phone] DO Mohan Groves Referring Provider Lulú Ruth [...] Provider Tyson, DO Peri A Attending Provider [phone] MD Solomon Whitmorerey Attending Provider DO Mohan Groves Referring Provider [phone] LUCI Galicia Attending Provider MD Jeannie Aguilar Attending Provider Tyson, DO Peri A Primary Care Provider [phone] NON STAFF Attending Provider Unavailable Tyson, DO Peri A Attending Provider Tyson, DO Peri A Primary Care Provider MD Ang Murphy Attending Provider Unavailable DO Liat Jez A Attending Provider Tyson, DO Peri A Primary Care Provider MD Nik Pineda Attending Provider Patsy Harvey Unavailable MD Rxoane Bills Attending Provider [phone] DO Brenden Groves Referring Provider Tyson, DO Peri A Attending Provider Tyson, DO Peri A Primary Care Provider MD Nik Pineda Attending Provider Tyson, DO Peri A Attending Provider MD Roxane Bills Attending Provider DO Brenden Groves Referring Provider Tyson, DO Peri A Primary Care Provider MD Truong Ward Attending Provider Tyson, DO Peri A Attending Provider [phone] LUCI Diehl Attending Provider Tyson, DO Peri A Primary Care Provider LUCI Diehl Attending Provider Giovanni Moreno MD Primary Care Provider MD Roxane Bills Attending Provider Tyson, DO Peri A Primary Care Provider MD Truong Ward Attending Provider Tyson, DO Peri A Primary Care Provider LUCI Diehl Attending Provider [phone] MD [facility] Attending Provider Tyson, DO Peri A Primary Care Provider LUCI Diehl Attending Provider Tyson, DO Peri A Primary Care Provider MD Truong Ward Attending Provider Tyson, DO Peri A Attending Provider MD Roxane Bills Attending Provider DO Brenden Groves Referring Provider Tyson, DO Peri A Primary Care Provider MD Truong Ward Attending Provider AMALIA London Attending Provider MD Roxane Bills Attending Provider DO Brenden Groves Referring Provider [phone] Tyson DO, Peri A Primary Care Provider Surya GILMORE-C, Rachana Garcia Attending Provider Truong Ward MD Attending Provider Roxane Bills MD Attending Provider Brenden Groves DO Referring Provider Roxane Bills MD Attending Provider Brenden Groves DO Referring Provider Tyson DO, Peri A Primary Care Provider Truong Ward MD Attending Provider Clayton Josue DOin Luis Attending Provider Tyson DO, Peri A Primary Care Provider Truong Ward MD Attending Provider [phone] Tyson DO, Peri A Attending Provider Tyson DO, Peri A Attending Provider Roxane Bills MD Attending Provider Tyson DO, Peri A Primary Care Provider Truong Ward MD Attending Provider Richard PARK, Andrius Mart Attending Unavailable Richard PARK, Andrius Veduardo Attending Unavailable Richard PARK, Andrius Vytautmarilee Attending Unavailable Bertha Martinez RN Attending Provider Unavailable Tyson DO, Peri A Primary Care Provider Roxane Bills MD Attending Provider Truong Ward MD Attending Provider [phone] Bertha Martinez RN Attending Provider Unavailable Brenden Groves DO Referring Provider Placido BUCIOC, Sugey Garcia Attending Provider Tyson DO, Peri A Primary Care Provider Roxane Bills MD Attending Provider [phone] Brenden Groves DO Referring Provider JEFF, AHMAD F Attending Unavailable TENZIN TSAIOLAS A Attending Unavailable JEFF, AHMAD F Attending Unavailable RADHASVETLANA ROMERO K Attending Unavailable BROWN, MACK A Attending Unavailable JEFF, AHMAD F Attending Unavailable RADHASVETLANA ROMERO K Attending Unavailable JEFF, AHMAD F Attending Unavailable JEFF, AHMAD F Referring Unavailable TENZIN TSAIOLAS A Attending Unavailable BROWN MACK A Attending Unavailable BROWN MACK A Attending Unavailable Tyson DO, Peri A Primary Care Provider Roxane Bills MD Attending Provider [phone] Truong Ward MD Attending Provider [phone] Brenden Groves DO Referring Provider [phone] Brenden Groves DO Referring Provider Chan Santana DO Emergency Provider Erin Guevara MD Emergency Provider [phone] Margarito Rajan MD Admit Provider Margarito Rajan MD Attending Provider Guillermo Oleary DO Other Provider Margarito Rajan MD Other Provider Louis Ellsworth MD Attending Provider Louis Ellsworth MD Other Provider Tyson DO, Peri A Primary Care Provider Roxane Bills MD Attending Provider Placido GILMORE-C, Sugey Garcia Attending Provider Sylvia PARK, Truong Attending Provider Chan Santana DO Emergency Provider Erin Guevara MD Emergency Provider Satinder PARK, Margarito Admit Provider Satinder PARK, Margarito Other Provider Guillermo Oleary DO Other Provider Jodee PARK, Louis Attending Provider [phone] Jodee PARK, Louis Other Provider Giovanni Moreno MD Primary Care Provider Roxane Bills Admitting Unavailable Roxane Bills Attending Unavailable Marbella, Peri A Primary Care Unavailable Tyson, Peri A Primary Care Unavailable Truong Ward Admitting Unavailab le Truong Ward Attending Unavailab le Roxane Bills Admitting Unavailable Roxane Bills Attending Unavailable Brenden Groves Referring Unavailab le Tyson, Peri A Primary Care Unavailable Chan Santana Admitting Unavailable Chan Santana Attending Unavailable Marbella, Peri A Primary Care Unavailable Guillermo Oleary II Consulting Unavaila ble Margarito Rajan Admitting Unavailable Margarito Rajan Attending Unavailable Marbella, Peri A Primary Care Unavailable Louis Ellsworth Consulting Unavailable Tyson, Peri A Primary Care Unavailable Tyson, Peri A Attending Unavailable Marbella, Peri A Admitting Unavailable Allergies Allergy ClassificationReported Allergen(s)Allergy TypeDate of OnsetReaction(s) Facility (20 sources)CodeineDrug Pjmqzib25-79-1157JfapovlReg[facility] ([facility] sources)HoneyPropensity to adverse nicxpliki21-39-9784ymyiwozgsdeOhioHealth [facility] (20 sources)MorphineDrug Juktugl67-75-0267ApuaEykcdlhxzOhioHealth [facility] (1 source)CodeineDrug Nrhlksz98-87-5559Sxf [facility] Rep[facility] (1 source)HoneyDrug allergy (disorder)25-82-5549Brb [facility] (1 source)MorphineDrug Muysgvp76-18-3016Aca [facility] Rep[facility] (20 sources)traMADolDrug Xynmsvi63-54-4369OguuzgubzbvrywZdqxgpcfaC[facility] (1 source)MorphineDrug AllergyUnknoMissouri [facility] Hospital-S[facility] userfox Other (1 source)CodeineDrug Tcilrwr75-03-9229HsvrpabrzMercy Health Repository (1 source)HoneyDrug allergy (disorder)53-94-4675KinsryerjMercy Health Repository (1 source)MorphineDrug Omoaoif48-08-4123XkufenkfxMercy Health Repository (1 source)traMADolDrug Shnxjar43-54-3249IkehvegtzMercy Health Repository Medications Current Medications MedicationDrug Class(es)DatesSig (Normalized)Sig (Original)acetaminophen 325 mg / HYDROcodone bitartrate 5 mg oral tablet (20 sources)Opioid AgonistStart: 06-54-5853elwr 0.5-1 tablets by mouth once daily as neededNorco 5-325 MG 1/2 to 1 tablet as needed Orally daily for 30 days Oct, ActiveStart: 57-91-7206ptmo 0.5-1 tablets by mouth once daily as neededNorco 5-325 MG 1/2 to 1 tablet as needed Orally daily for 30 days Oct, ActiveStart: 48-85-2487pdat 0.5-1 tablets by mouth once daily as needed [place] 5-325 MG 1/2 to 1 tablet as needed Orally daily for 30 days Sep, ActiveStart: 55-19-7204kmnf 0.5-1 tablets by mouth once daily as neededNorco 5- 325 MG 1/2 to 1 tablet as needed Orally daily for 30 days August, Active Start: 80-84-1944libj 1 tablet by mouth twice daily as neededNorco 5-325 MG 1 tablet as needed Orally twice a day for 30 days Jun, ActiveStart: 61-27-5124vkuf 1 tablet by mouth twice daily as neededNorco 5-325 MG 1 tablet as needed Orally twice a day for 30 days May, ActiveStart: 03-25-0037dlks 1 tablet by mouth twice daily as neededNorco 5-325 MG 1 tablet as needed Orally twice a day for 30 days Apr, ActiveStart: 76-80-9423ffbx 1 tablet by mouth twice daily as neededNorco 5-325 MG 1 tablet as needed Orally twice a day for 30 days Apr, ActiveStart: 30-77-5711zlat 1 tablet by mouth twice daily as neededNorco 5-325 MG 1 tablet as needed Orally twice a day for 30 days Mar, ActiveStart: 82-95-9158YOPVUyksvsb-acetaminophen ([place]) 5-325 MG tablet 02/06/2023 ActiveStart: 21-98-9619SWGLRpwydvj-Acetaminophen 5-325 MG 1 tablet as needed severe pain scale 9-10 Orally BID for 9 days Fill on or after 02/22/2022 Oct, ActiveStart: 12-16-2016 End: 78-87-5300oggz 1 tablet by mouth every six hours as needed for pain Hydrocodone-Acetaminophen 5-325 mg tablet Discontinued 1 TAB PO Q6H as needed for Pain December 16, 2016 12:00am April 17, 2017 11:02amStart: 12-16-2016 End: 72-82-2033awzy 1 tablet by mouth twice daily as neededNorco 5-325 MG 1 tablet as needed Orally twice a day Activeacyclovir 400 mg oral tablet (5 sources)Herpesvirus Nucleoside Analog DNA Polymerase Inhibitor, Herpes Simplex Virus Nucleoside Analog DNA Polymerase Inhibitor, Herpes Zoster Virus Nucleoside Analog DNA Polymerase InhibitorStart: 00-21-3952mylf 1 tablet by mouth twice [id number] 200 actuat albuterol 0.09 mg/actuat metered dose inhaler (20 sources)beta2-Adrenergic AgonistStart: 07-16-2023 End: 40-40-6644odlz 2 puff(s) by inhalation in the morning, then take 2 puff(s) by inhalation in the evening, thentake 2 puff(s) by inhalation at bedtime albuterol HFA 90 mcg/act inhaler Indications: Chronic obstructive pulmonary disease, unspecified COPD type (HCC) INHALE 2 PUFFS IN THE MORNING AND 2 PUFFS IN THE EVENING AND 2 PUFFS BEFORE BEDTIME. 18 g 5 08/03/2024 ActiveStart: 10-72-9606gktu 2 puff(s) by inhalation in the morning, then take 2 puff(s) by inhalation in the evening, thentake 2 puff(s) by inhalation at bedtimealbuterol HFA (Ventolin HFA) 90 mcg/act inhaler Indications: Chronic obstructive pulmonary disease,unspecified COPD type (CMS/HCC) Inhale 2 puffs in the morning and 2 puffs in the evening and 2 puffs before bedtime. 18 g 5 09/23/2022 ActiveStart: 62-12-8688nype 1 puff(s) by inhalation every four hours as needed for wheezing Albuterol Sulfate (Proair Hfa) 90 mcg/actuation Hfa Aerosol Inhaler Active 1 PUFF INHALATION Q4H asneeded for Wheezing July 29, 2021 12:00am Complies with drug therapyStart: 26-18-3703Nmadi: 12-26-2016 End: 50-30-4289rbcc 2.5 mg by inhalation every three hours as neededAlbuterol Sulfate 2.5 mg /3 mL (0.083 %) Solution For Nebulization Discontinued 2.5 MG INHALATION Q3H as needed for Shortness Of Breath December 26, 2016 12:00am April 17, 2017 11:07amStart: 12-26-2016 End: 91-12-9936bufr 1 puff(s) by inhalation every four hours as neededalbuterol 0.833 mg/ml / ipratropium bromide 0.167 mg/ml inhalation solution (20 sources)Anticholinergic, beta2-Adrenergic AgonistStart: 09-23-2022 End: 52-78-0927kraxoywyill-albuterol (Duo-Neb) 0.5-2.5 mg/3 mL nebulizer solution Indications: Chronic obstructivepulmonary disease, unspecified COPD type (HCC) Take 3 mL by nebulization 4 (four) times a day as needed for wheezing or shortness of breath 360 mL 11 01/14/2024 ActiveStart: 08-16-2021 End: 30-09-1565rief 1 mL by inhalation four times dailyIpratropium-Albuterol 0.5 mg-3 mg(2.5 mg base)/3 mL Solution For Nebulization Discontinued 3 ML INHALATION Four times daily August 16, 2021 12:00am August 16, 2021 10:33amStart: 07-29-2021 take 1 mL by inhalation every six hours as needed for wheezingIpratropium- Albuterol 0.5 mg-3 mg(2.5 mg base)/3 mL Solution For Nebulization Active 3 ML INHALATION Q6H as needed for Wheezing July 29, 2021 12:00am Complies with drug therapyStart: 07-29-2021 End: 48-27-8054Ipodo: 09-93-8855gpni 3 mL by inhalation every six hoursStart: 98-38-7128Wkrfe: 12-16-2016 End: 42-20-3099Reffwwmzqxn-Albuterol 0.5 mg-3 mg(2.5 mg base)/3 mL solution for nebulization Discontinued December 16, 2016 12:00am December 16, 2016 4:10am amLODIPine 10 mg oral tablet (20 sources)Dihydropyridine Calcium Channel BlockerStart: 06-15-2023 End: 14-51-1642opcb 1 tablet by mouth once dailyAmlodipine 10 mg tablet Active 0 .ROUTE .COMPLEX 90 March 07, 2024 2:05pm TAKE 1 TABLET BY MOUTH EVERY DAY FOR 90 DAYS Complies with drug therapyStart: 07-21-2022 End: 08-53-8326tcrz 1 tablet by mouth once dailyamLODIPine (Norvasc) 10 MG tablet Take 10 mg by mouth Daily 07/21/2022 ActiveStart: 01-24-2018 End: 20-78-5443esna 2 tablets by mouth once daily in the morningAmlodipine 5 mg Tablet Discontinued 10 MG PO Every morning January 24, 2018 12:00am June 15, 2023 9:10amStart: 01-24-2018 End: 94-37-3648kmjm 10 mg by mouth once daily in the morningAmlodipine Discontinued 10 MG PO Every morning January 24, 2018 12:00am June 15, 2023 9:10amStart: 12-16-2016 End: 31-74-8675tipf 1 tablet by mouth at bedtimeAmlodipine 5 mg tablet Discontinued 1 TAB PO Bedtime December 16, 2016 12:00am December 26, 2016 12:19pmStart: 12-16-2016 End: 01-11-5243bqpzzrmlynu 500 mg oral tablet (6 sources)Penicillin-class AntibacterialStart: 26-10-6630xrog 1 tablet by mouth every eight hoursAsenapine Maleate 5 mg tablet, sublingual (5 sources)Start: 88-43-4690vput 1 tablet under the tongue once daily at bedtime Asenapine Maleate 5 mg tablet, sublingual Active 5 MG SUBLINGUAL Daily at bedtime July 01, 2023 12:00amStart: 97-67-9154ivpv 1 tablet under the tongue once daily at bedtimeAsenapine Maleate 5 mg tablet, sublingual Active 5 MG SUBLINGUAL Daily at bedtime June 30, 2023 11:00pmaspirin 81 mg delayed release oral tablet (20 sources)Platelet Aggregation Inhibitor, Nonsteroidal Anti-inflammatory Drug Start: 07-01-2023 End: 76-44-7758kyjrgqg 81 MG EC tablet 07/01/2023 ActiveStart: 12-19-2016 End: 84-76-1013rbul 1 tablet by mouth once dailyAspirin 81 mg Tablet,Delayed Release (Dr/Ec) Discontinued 81 MG PO Daily December 19, 2016 12:00am December 26, 2016 12:47pmazithromycin 250 mg oral tablet (13 sources)Macrolide AntimicrobialStart: 05-13-2024 End: 12-65-9722nrpuocdwojwm (Zithromax) 250 MG tablet Indications: Chronic obstructive pulmonary disease, unspecified COPD type (CMS/HCC) Take 2 by mouth today then 1 daily for 4 days 6 tablet 05/13/2024 08/25/2024Discontinued (Med list cleanup)BIPAP Machine (20 sources)BIPAP Machine [id number] actuat budesonide 0.16 mg/actuat / formoterol fumarate 0.0045 mg/actuat metered dose inhaler (20 sources)Corticosteroid, beta2-Adrenergic AgonistStart: 09-23-2022 End: 53-67-4547asdk 2 puff(s) by inhalation in the morningbudesonide-formoterol (Symbicort) 160-4.5 MCG/ACT inhaler Indications: Chronic obstructive pulmonary disease, unspecified COPD type (HCC) Inhale 2 puffs in the morning and 2 puffs before bedtime. Rinse mouth with water after use to reduce aftertaste and incidence of candidiasis. Do not swallow.. 1 each 5 01/14/2024 ActiveStart: 07-87-2949Tqdco: 12-60-7694kugy 1 puff(s) by inhalation twice dailyStart: 03-34-2358owae 1 puff(s) by inhalation twice dailyBudesonide-Formoterol (Symbicort) 160-4.5 mcg/actuation Hfa Aerosol Inhaler Active 2 PUFF INHALATION Twice daily January 24, 2018 12:00am Complies with drug therapyStart: 98-48-3166gvwz 1 puff(s) by inhalation twice dailyBudesonide-Formoterol (Symbicort) 160-4.5 mcg/actuation Hfa Aerosol Inhaler Active 2 PUFF INHALATION Twice daily January 23, 2018 11:00pmStart: 75-15-1931necu 1 puff(s) by inhalation twice dailyBudesonide-Formoterol (Symbicort) 160-4.5 mcg/actuation Hfa Aerosol Inhaler Active 2 PUFF INHALATION Twice daily January 24, 2018 12:00amStart: 12-16-2016 End: 96-33-0456wxzf 1 puff(s) by inhalation twice dailyBudesonide-Formoterol 160-4.5 mcg/actuation HFA aerosol inhaler Discontinued 2 PUFF INHALATION Twice daily December 26, 2016 12:47pm April 17, 2017 11:06amStart: 12-16-2016 End: 59-94-2023nhhh 2 puff(s) by inhalation once dailySymbicort 160-4.5 MCG/ACT 2 puffs Inhalation Once a day for 30 days Activetake 2 puff(s) by inhalation once dailySymbicort 160-4.5 MCG/ACT 2 puffs Inhalation Once a day for 30 days ActivebusPIRone hydrochloride 5 mg oral tablet (20 sources)Start: 56-74-6188buys 1 tablet by mouth once dailybusPIRone (Buspar) 5 MG tablet TAKE 1 TABLET BY ORAL ROUTE 1 TIMES PER DAY IN THE AFTERNOON 08/08/2024 Activecalcium carbonate 1500 mg oral tablet (5 sources)Start: 14-23-1005vlur 1 tablet by mouth once daily carboxymethylcellulose sodium 5 mg/ml ophthalmic solution (20 sources)Start: 46-25-7435frfi 2 drop(s) into the eye(s) twice daily as neededCarboxymethylcellulose Sodium (Refresh Tears) 0.5 % drops Active 0 .ROUTE .COMPLEX October 09, 2023 12:17pm PLACE 2 DROPS INTO BOTH EYES TWICE DAILY NEEDED FOR DRY EYE(S) Complies with drug therapyStart: 07-08-2023 End: 80-16-0066ckej 1 drop(s) into the eye(s) twice daily as needed Carboxymethylcellulose Sodium (Refresh Tears) 0.5 % drops Discontinued 2 DROPS EYE-BOTH Twice dailyas needed for dry eye(s) July 08, 2023 12:00am October 09, 2023 12:17pmStart: 07-01-2023 End: 62-89-3855obqywaspbsstsbiaxwqxit sodium (Refresh Tears) Discontinued OPHTHALMIC July 01, 2023 12:00am 2024 10:00amStart: 07-01-2023 carboxymethylcellulose sodium (Refresh Tears) Active OPHTHALMIC June 30, 2023 11:00pmStart: 25-33-1387ctczyfaduyefqmvwlggzhr sodium (Refresh Tears) Active OPHTHALMIC July 01, 2023 12:00amStart: 53-64-3102Dqaouug Tears 0.5 % ophthalmic solution 03/18/2023 ActiveStart: 43-44-9448psbb 1 drop(s) into the eye(s) three times daily as neededRefresh Tears 0.5 % ophthalmic solution INSTILL 1 DROP INTO EACH EYE 3 TIMES A DAY NEEDED 30 DAYS 03/18/2023 Active Refresh Tears 0.5 % INSTILL 1 DROP INTO EACH EYE 3 TIMES A DAY NEEDED 30 DAYS for 30 Activecholecalciferol 0.05 mg oral capsule (20 sources)Vitamin DStart: 11-59-5490puht 1 capsule by mouth once dailyStart: 12-24-2023 End: 65-55-4094Gcwws: 35-50-9640tmyn 2 capsules by mouth once daily Cholecalciferol (Vitamin D3) Active 0 .ROUTE .COMPLEX 180 December 24, 2023 2:28pm TAKE 2 CAPSULES BY MOUTH EVERY DAYStart: 12-16-2016 End: 06-17-0883ceup 2 capsules by mouth once dailyCholecalciferol (Vitamin D3) 50 mcg (2,000 unit) capsule Discontinued 0 .ROUTE .COMPLEX 180 December 24, 2023 2:28pm December 07, 2024 9:53am TAKE 2 CAPSULES BY MOUTH EVERY DAYStart: 12-16-2016 End: 81-90-5654xnzj 1 capsule by mouth twice dailyCholecalciferol (Vitamin D3) 2,000 unit capsule Discontinued 1 CAP PO Twice daily December 16, 2016 12:00am December 24, 2023 2:28pmStart: 90-27-3353onwa 1 capsule by mouth once daily Cholecalciferol (Vitamin D3) Active 1 CAP PO Daily December 16, 2016 12:00am clobetasol propionate 0.5 mg/ml topical cream (20 sources)CorticosteroidStart: 91-49-9641gxgvzvkelu (Temovate) 0.05 % cream 11/08/2023 ActiveStart: 07-29-2021 End: 95-68-5467Mbopbwxmob 0.05 % ointment Discontinued 1 APPLIC TOPICAL Daily 30 7 July 29, 2021 12:00am July 30, 2022 3:01pmcloNIDine hydrochloride 0.1 mg oral tablet (20 sources)Central alpha-2 Adrenergic AgonistStart: 88-42-7311pnuUQDfsd (Catapres) 0.1 MG tablet 07/01/2023 ActiveStart: 99-70-6340zfgl 1 tablet by mouth twice dailycloNIDine HCl 0.1 MG 1 tablet Orally twice daily for 90 day(s) Oct, ActiveComp.Stocking,Thigh,Long,Large (20 sources)Start: 24-37-9839Ycut.Stocking,Thigh,Long,Large Active 0 .Route 2 May 27, 2023 5:01pm 20-30 COMPRESSION ,WEARDAILY, 30 DAYSStart: 04-44-2741Rqcs.Stocking,Thigh,Long,Large Active 0 .Route 2 May 27, 2023 1:00am As directedStart: 05-27-2023 End: 63-34-2273Wxwv.Stocking,Thigh,Long,Large Discontinued 0 .Route 2 May 27, 2023 1:00am May 27, 2023 5:01pm WEAR DAILY, 30 DAYSStart: 63-55-1534Cffp.Stocking,Thigh,Long,Large Active 0 .Route 2 May 27, 2023 12:00am As directedComp.Stocking,Thigh,Long,Large misc (20 sources)Start: 91-15-7774Pita.Stocking,Thigh,Long,Large misc Active 0 .Route 2 May 27, 2023 5:01pm 20-30 COMPRESSION ,WEAR DAILY, 30 DAYSStart: 37-36-2354Oiuj.Stocking,Thigh,Long,Large misc Active 0 .Route 2 May 27, 2023 4:01pm 20-30 COMPRESSION ,WEAR DAILY, 30 DAYSStart: 05-27-2023 Comp.Stocking,Thigh,Long,Large misc Active 0 .Route 2 May 27, 2023 1:00am As directedStart: 05-27-2023 End: 86-03-0277Wyay.Stocking,Thigh,Long,Large misc Discontinued 0 .Route 2 May 27, 2023 1:00am May 27, 2023 5:01pm WEAR DAILY, 30 DAYSStart: 75-50-7333Mbxd.Stocking,Thigh,Long,Large misc Active 0 .Route 2 May 27, 2023 12:00am As directedStart: 05-27-2023 End: 74-90-0571Wdrk.Stocking,Thigh,Long,Large misc Discontinued 0 .Route 2 May 27, 2023 12:00am May 27, 2023 4:01pm WEAR DAILY, 30 DAYS Continuous Blood Gluc Sensor (FreeStyle Alfredo 2 Sensor) misc (20 sources)Start: 53-73-1428Yhpopzwnqx Blood Gluc Sensor (FreeStyle Alfredo 2 Sensor) misc 07/01/2023 ActiveStart: 19-34-1535Mlzynoqkgd Blood Gluc Sensor (FreeStyle Alfredo 2 Sensor) misc USE DIRECTED EVERY 14 DAYS 07/01/2023 Active Continuous Glucose [place] Attendant (FreeStyle Alfredo 3 [place]) device (20 sources)Start: 42-55-4554Bxzcaexvbd Glucose [place] Attendant (FreeStyle Alfredo 3 [place]) device Indications: Type 2 diabetes mellituswith hyperglycemia, with long-term current use of insulin (HCC) USE DIRECTED 1 each 09/12/2024 Active Start: 84-15-9003Uzfcxrpbvb Glucose [place] Attendant (FreeStyle Alfredo 3 [place]) device Indications: Type 2 diabetes mellituswith hyperglycemia, with long-term current use of insulin (CMS/HCC) USE DIRECTED 1 each 09/12/2024 ActiveStart: 08-22-2024 End: 81-47-1481Llyimeqgig Glucose [place] Attendant (FreeStyle Alfredo 3 [place]) device Indications: Type 2 diabetes mellituswith hyperglycemia, with long-term current use of insulin (CMS/[facility]) 1 Device Daily 1 each 08/22/2024 08/22/2025 Active Continuous Glucose Sensor (FreeStyle Alfredo 3 Plus Sensor) misc (20 sources)Start: 10-25-2024 End: 46-16-9411Gbwywqhjlz Glucose Sensor (FreeStyle Alfredo 3 Plus Sensor) misc Indications: Type 2 diabetes mellitus with hyperglycemia, with long-term current use of insulin ([facility]) 1 Bar Every 15 Days 6 each 1 10/25/2024 01/23/2025 Active Start: 08-22-2024 End: 83-05-6837Rvvgqcwoms Glucose Sensor (FreeStyle Alfredo 3 Plus Sensor) misc Indications: Type 2 diabetes mellitus with hyperglycemia, with long-term current use of insulin ([facility]) 1 Bar Every 15 Days 6 each 1 08/22/2024 11/20/2024 Active Start: 08-22-2024 End: 99-94-6620Svmajantuj Glucose Sensor (FreeStyle Alfredo 3 Plus Sensor) misc Indications: Type 2 diabetes mellitus with hyperglycemia, with long-term current use of insulin ([facility]) 1 Bar Every 15 Days 6 each 1 08/22/2024 11/20/2024 Activedapagliflozin 10 mg oral tablet (20 sources)Sodium-Glucose Cotransporter 2 InhibitorStart: 12-23-2023 End: 72-82-7280mbrh 1 tablet by mouth once dailydapagliflozin (Farxiga) 10 MG Indications: Type 2 diabetes mellitus with hyperglycemia (HCC) Take 1tablet (10 mg) by mouth Daily 90 tablet 1 08/22/2024 ActiveStart: 08-14-2022 End: 14-10-6116eqxq 1 tablet by mouth once daily in the morningDapagliflozin Propanediol (Farxiga) 5 mg tablet Discontinued 5 MG PO Every morning 90 July 01, 2023 4:57pm March 07, 2024 1:43pmStart: 07-29-2021 End: 80-35-1534tmzj 1 tablet by mouth once dailyDapagliflozin Propanediol (Farxiga) 5 mg Tablet Discontinued 5 MG PO Daily July 29, 2021 12:00amMa2021 10:22amdiclofenac sodium 0.01 mg/mg topical gel (20 sources)Nonsteroidal Anti-inflammatory DrugStart: 09-08-2023 End: 24-45-2420kpxvvpjegn sodium 1 % gel Indications: Diabetes mellitus due to underlying condition with diabetic polyneuropathy, with long-term current use of insulin ([facility]) APPLY 4 GRAMS TO AFFECTED AREA 4 TIMES DAILY 100 g 3 01/12/2024 ActiveStart: 03-23-2023 End: 49-20-9174qsihmusqoo sodium 1 % gel Indications: Diabetes mellitus due to underlying condition with diabetic polyneuropathy, with long-term current use of insulin ([facility]/HCC) APPLY 4 GRAMS TO AFFECTED AREA 4 TIMES DAILY 100 g 3 05/21/2023 Activedicyclomine hydrochloride 20 mg oral tablet (20 sources)AnticholinergicStart: 61-33-5154Aqgeqqsqlmp 20 mg tablet Active 0 .ROUTE .COMPLEX 270 November 03, 2024 8:34am TAKE 1 TABLET THREE TIMES DAILY FOR IBS FOR 30 DAYS Complies with drug therapyStart: 11-03-2023 End: 82-57-9605emrd 1 tablet by mouth three times daily as neededDicyclomine 20 mg tablet Discontinued 0 .ROUTE .COMPLEX 270 November 03, 2023 4:59pm May 26, 2024 11:53am TAKE 1 TABLET BY MOUTH THREE TIMES A DAY NEEDEDStart: 07-29-2021 End: 55-81-8099cghmtksdira (Bentyl) 20 MG tablet Take 20 mg by mouth as needed in the morning and 20 mg as needed at noon and 20 mg as needed in the evening. 09/02/2022 ActiveStart: 07-29-2021 End: 32-36-7086inqb 1 tablet by mouth four times dailyDicyclomine 20 mg Tablet Discontinued 20 MG PO Four times daily July 29, 2021 12:00am October 4:58pmDULoxetine 60 mg delayed release oral capsule (20 sources)Serotonin and Norepinephrine Reuptake InhibitorStart: 04-20-2024 End: 21-40-9760ihps 1 capsule by mouth once dailyStart: 06-24-2022 End: 85-70-9699ylqu 1 capsule by mouth once dailyDULoxetine (Cymbalta) [address] capsule Take 60 mg by mouth Daily 06/24/2022 ActiveStart: 08-16-2021 End: 57-60-9723moyg 1 capsule by mouth once daily in the morningDuloxetine 60 mg Capsule, Delayed Rel Sprinkle Discontinued 60 MG PO Every morning August 16, 2021 12:00am May 27, 2023 10:08amStart: 01-24-2018 End: 84-61-7343azgv 3 capsules by mouth once dailyDuloxetine (Cymbalta) 20 mg Capsule,Delayed Release(Dr/Ec) Discontinued 60 MG PO Daily January 24, 2018 12:00am July 29, 2021 3:58pmFlash Glucose Sensor (Freestyle Alfredo 2 Sensor) kit (10 sources)Start: 69-19-3843Mopxz Glucose Sensor (Freestyle Alfredo 2 Sensor) kit Active 0 .Route 6 January 31, 2024 11:00pm AsdirectedStart: 61-79-8251Ojirj Glucose Sensor (Freestyle Alfredo 2 Sensor) kit Active 0 .Route February 01, 2024 12:00am Asdirectedfluticasone propionate 0.05 mg/actuat metered dose nasal spray (20 sources)CorticosteroidStart: 77-85-7230thnt 1 spray(s) nasal route once dailyfluticasone (Flonase) 50 MCG/ACT nasal spray Indications: Chronic obstructive pulmonary disease, unspecified (HCC) USE 1 SPRAY INTO EACH NOSTRIL EVERY DAY FOR 30 DAYS 16 mL 12/05/2022 ActiveStart: 01-24-2018 End: 15-80-9292Qcibqdokrpt Propionate (Flonase) 50 mcg/actuation [place],Suspension Discontinued 1 SPRAY INTRANASAL Daily July 29, 2021 12:00am September 19, 2024 10:01amStart: 01-24-2018 End: 22-44-2109Jonkl: 12-16-2016 End: 42-36-4326Iaecfuywlkz Propionate (Flonase Allergy Relief) 50 mcg/actuation [place],Suspension Discontinued 1 SPRAY INTRANASAL Daily December 26, 2016 12:47pm April 17, 2017 11:04amStart: 12-16-2016 End: 53-97-0784rxxx 1 spray(s) nasal route once daily as neededFreeStyle Alfredo 14 Day [place] - (20 sources)Start: 00-07-1486Atsmw: 63-09-9978IeccWflcg Alfredo 14 Day [place] - as directed every 14 days Feb, ActiveFreeStyle Alfredo 14 Day Sensor - (20 sources)Start: 33-16-1937Aohpk: 95-07-2083JjccThjvz Alfredo 14 Day Sensor - as directed every 14 days for 28 days Feb, ActiveFreeStyle Alfredo 2 [place] - (20 sources)Start: 71-11-9261AkgcVhzgy Alfredo 2 [place] - as directed Feb, ActiveFreeStyle Alfredo 2 [place] - as directed ActiveFreeStyle Alfredo 2 Sensor - (20 sources)Start: 65-12-4731Zgeyt: 16-77-1189Gpyaj: 83-42-0084NgvaKymkc Alfredo 2 Sensor - as directed SQ every 14 days for 90 days Jul, ActiveStart: 92-39-8418CmvpMconn Alfredo 2 Sensor - as directed SQ every 2 weeks for 30 days Feb, Activefurosemide 40 mg oral tablet (20 sources)Loop DiureticStart: 15-80-0652plfh 1.5 tablets by mouth once daily Furosemide 40 mg tablet Active 0 .ROUTE .COMPLEX 135 October 17, 2024 7:42am TAKE 1.5 TABLETS BY MOUTH ONCE DAILY Complies with drug therapyStart: 10-28-2023 End: 52-75-3564nlkc 1.5 tablets by mouth once dailyFurosemide 40 mg tablet Discontinued 0 .ROUTE .COMPLEX 135 March 07, 2024 2:05pm September 19, 2024 9:59am TAKE 1.5 TABLETS BY MOUTH ONCE DAILYStart: 04-28-2023 End: 86-90-2981vhjwtuayes (Lasix) 40 MG tablet 05/17/2023 ActiveStart: 12-16-2016 End: 50-54-4810clvv 3 tablets by mouth once dailyFurosemide 20 mg tablet Discontinued 3 TAB PO Daily July 29, 2021 11:13am August 16, 2021 10:33amStart: 12-27-2013 End: 09-12-1074dvhh 1 tablet by mouth once dailyFurosemide 20 mg tablet Discontinued 1 TAB PO Daily December 26, 2016 12:47pm July 29, 2021 11:13amStart: 12-27-2013 End: 99-68-6786qxun 1 tablet by mouth once dailyFurosemide (Lasix) 40 mg Tablet Discontinued 40 MG PO Daily August 16, 2021 12:00am September 26, 2021 9:14amStart: 07-87-5007txzx 1.5 tablets by mouth once dailyfurosemide (Lasix) 40 MG tablet TAKE 1.5 TABLETS BY MOUTH ONCE DAILY 05/17/2023 Activegabapentin 600 mg oral tablet (20 sources)Anti-epileptic AgentStart: 49-38-4275uzysswivlu (Neurontin) 600 MG tablet 01/05/2024 ActiveStart: 84-61-7608smmgqwfvyq (Neurontin) 600 MG tablet TAKE 1.5 TABS IN AM, 1 TAB AT NOON, AND 1.5 TABS AT BEDTIME 01/05/2024 Active Start: 94-63-3716duvo 2 capsules by mouth once dailyGabapentin 300 mg capsule Active 600 MG PO Daily July 01, 2023 12:00am Complies with drug therapyStart: 09-16-2022 End: 58-35-7719svui 1 capsule by mouth once dailyGabapentin 300 mg capsule Active 300 MG PO Daily July 01, 2023 12:00amStart: 08-16-2021 End: 95-38-3234Muaveznggw 100 mg Capsule Discontinued 600 MG PO Twice daily August 16, 2021 12:00am June 3044:02pmStart: 08-16-2021 End: 95-45-7306kfzz 600 mg by mouth twice dailyGabapentin Discontinued 600 MG PO Twice daily August 16, 2021 12:00am July 01, 2023 4:02pmStart: 00-64-9668dwvy 300 mg by mouth three times dailyGabapentin Active 300 MG PO Three times daily August 16, 2021 12:00amStart: 14-18-1709eixg 100 mg by mouth three times daily Gabapentin Active 100 MG PO Three times daily August 16, 2021 12:00amStart: 12-16-2016 End: 75-77-7167lhry 1 tablet by mouth three times dailyGabapentin 800 mg tablet Discontinued 1 TAB PO Three times daily April 17, 2017 11:10am July 30, 2022 2:59pm12 hr guaiFENesin 600 mg extended release oral tablet (20 sources)Start: 01-14-2024 End: 40-65-5053mguf 1 tablet by mouth in the morning, then take 1 tablet by mouth every twelve hours at bedtimeguaiFENesin (Mucinex) 600 MG 12 hr tablet Indications: Chronic obstructive pulmonary disease, unspecified COPD type (CMS/HCC) Take 1 tablet (600 mg) by mouth in the morning and 1 tablet (600 mg) before bedtime. Do not crush, chew, or split.. 60 tablet 11 01/14/2024 08/25/2024 Discontinued (Med listcleanup)Start: 11-30-2023 End: 30-69-5827csyb 1 tablet by mouth twice daily at bedtimeguaiFENesin (Mucinex) 600 MG 12 hr tablet Indications: Chronic obstructive pulmonary disease, unspecified COPD type (CMS/HCC) TAKE 1 TABLET BY MOUTH TWICE DAILY IN THE MORNING AND BEFORE BEDTIME. 60 tablet 11 11/30/2023 01/14/2024 Discontinued (Reorder)Start: 04-40-6109wiyo 1 tablet by mouth in the morning, then take 1 tablet by mouth every twelve hours at bedtimeguaiFENesin (Mucus Relief) 600 MG 12 hr tablet Indications: Chronic obstructive pulmonary disease, unspecified COPD type (CMS/HCC) Take 1 tablet (600 mg) by mouth in the morning and 1 tablet (600 mg)before bedtime. 60 tablet 5 01/26/2023 ActivehydrOXYzine hydrochloride 25 mg oral tablet (20 sources)AntihistamineStart: 09-27-8044toqs 1 tablet by mouth three times daily as needed for anxietyhydrOXYzine HCl (Atarax) 25 MG tablet Take 25 mg by mouth 3 (three) times a day as needed for anxiety 08/12/2024 ActiveStart: 24-06-1030ktodUYWiuwa HCl (Atarax) 10 MG tablet 12/30/2022 Active3 ml insulin aspart, human 100 unt/ml pen injector (20 sources)Insulin AnalogStart: 62-49-2921Ueygg: 75-54-6249Dsxvf: 08-17-2024 insulin aspart (NovoLOG FLEXPEN) 100 UNIT/ML pen Indications: Type 2 diabetes mellitus with hyperglycemia, with long-term current use of insulin (HCC) Inject 40 Units under the skin in the morning and 40 Units at noon and 40 Units in the evening. Inject before meals. 120 mL 1 08/17/2024 ActiveStart: 48-56-1692dxhgiqs aspart (NovoLOG FLEXPEN) 100 UNIT/ML pen Indications: Type 2 diabetes mellitus with hyperglycemia, with long-term current use of insulin (CMS/HCC) Inject 40 Units under the skin in the morning and 40 Units at noon and 40 Units in the evening. Inject before meals. 120 mL 1 06/01/2024 ActiveStart: 53-73-4123SjdcHFG FLEXPEN 100 UNIT/ML pen PLEASE SEE ATTACHED FOR DETAILED DIRECTIONS 10/22/2023 ActiveStart: 12-19-2016 End: 40-41-9023Xmjyoqj Aspart U-100 (Novolog Flexpen U-100 Insulin) 100 unit/mL Insulin Pen Discontinued 0 UNITS SUBCUT 3X/Day with meals and bedtime Protocol: *NOT APPROPRIATE TO USE SCALE IF LESS THAN 3 HOURS SINCE PREVIOUS MEAL AND SCALE DOSE* Condition: Corrective Scale #5 (TDI 101-125 UNITS) Condition: ====== Dose/Route: Instructions: Condition: Fingerstick Blood Glucose Dose/Route: Insulin Units Condition: 150-199 mg/dl Dose/Route: 5 unit Condition: 200-249 mg/dl Dose/Route: 9 unit Condition: 250-299 mg/dl Dose/Route: 14 unit Condition: 300- 349 mg/dl Dose/Route: 18 unit Condition: 350-400 mg/dl Dose/Route: 22 unit Condition: greater than or = 400 mg/dl Dose/Route: 24 unit Instructions: Call Provider 60 December 19, 2016 12:00am April 17, 2017 11:02am Please contact the information source for Protocol details.Start: 12-19-2016 End: 35-37-4314Bncfx: 12-19-2016 End: 92-07-4537Kmlnhto Aspart U-100 (Novolog Flexpen U-100 Insulin) 100 unit/mL Insulin Pen Discontinued 0 UNITS SUBCUT 3X/Day with meals and bedtime 60 December 19, 2016 12:00am April 17, 2017 11:02am Please contact the information source for Protocol details.3 ml insulin glargine 100 unt/ml pen injector (20 sources)Insulin AnalogStart: 11-14-2024 End: 41-62-2309qvzaaz 40 [IU] by subcutaneous injection in the morninginsulin glargine (Lantus SoloStar) 100 UNIT/ML pen Indications: Type 2 diabetes mellitus with hyperglycemia, with long-term current use of insulin (HCC) Inject 40 Units under the skin in the morning and 40 Units before bedtime. 72 mL 1 11/14/2024 02/12/2025 ActiveStart: 05-25-2024 End: 77-87-3062jkpmmba glargine (Lantus SoloStar) 100 UNIT/ML pen Indications: Type 2 diabetes mellitus with hyperglycemia, with long-term current use of insulin (HCC) Inject 50 Units under the skin in the morning.45 mL 1 08/17/2024 11/14/2024 Discontinued (Reorder)Start: 12-05-2022 End: 55-67-3167Worsddl Glargine (Lantus Solostar U-100 Insulin) 100 unit/mL (3 mL) insulin pen Discontinued 30 UNIT SUBCUT 3x/Day before meals December 05, 2022 12:00am December 05, 2022 1:39pm If Blood sugar is greater than 140 takes 2 more units-per patientStart: 65-17-8617Wjicfxj Glargine (Basaglar Kwikpen U-100 Insulin) 100 unit/mL (3 mL) Insulin Pen Active 40 UNIT SUBCUT Daily at bedtime August 16, 2021 12:00am Complies with drug therapyStart: 08-16-2021 End: 76-61-9790Ddzbq: 52-98-7774Wmdiwly Glargine (Basaglar Kwikpen U-100 Insulin) 100 unit/mL (3 mL) Insulin Pen Active 15 UNIT SUBCUT Every morning August 16, 2021 12:00am If BGL greater than 140Basaglar KwikPen 100 UNIT/ML 22 units Subcutaneous once a day ActiveBasaglar KwikPen 100 UNIT/ML 17 units Subcutaneous once a day ActiveLantus Active3 ml insulin lispro-aabc 100 unt/ml pen injector (20 sources)Insulin AnalogStart: 05-25-2024 End: 73-92-4109ypnxtpw lispro-aabc (Lyumjev KwikPen) 100 UNIT/ML pen Indications: Type 2 diabetes mellitus with hyperglycemia, with long-term current use of insulin (HCC) Inject 40 Units under the skin in the morning and 40 Units at noon and 40 Units in the evening. Inject with meals. 36 pen 1 05/25/2024 11/21/2024 ActiveStart: 03-20-2023 End: 97-09-9540Yctibsd KwikPen 100 UNIT/ML pen PLEASE SEE ATTACHED FOR DETAILED DIRECTIONS 03/20/2023 05/25/2024 Discontinued (Reorder)Start: 62-77-8821Bxnakjt Lispro-Aabc (Lyumjev Kwikpen U-100 Insulin) 100 unit/mL insulin pen Active 40 UNIT SUBCUT 3x/Day before meals December 05, 2022 12:00am FSBS 151-200 2 u 200- 250 3 units 250-300 5 units 300-350 6 units 351-400 7 units per patient Complies with drug therapyStart: 37-53-7920Luukoxl Lispro-Aabc (Lyumjev Kwikpen U-100 Insulin) 100 unit/mL insulin pen (20 sources)Start: 55-92-0649Oklcdih Lispro-Aabc (Lyumjev Kwikpen U-100 Insulin) 100 unit/mL insulin pen Active 30 UNIT SUBCUT 3x/Day before meals December 04, 2022 11:00pm FSBS 151-200 2 u 200-250 3 units 250-300 5 units 300-350 6 units 351-400 7 units per patientStart: 19-07-0028Kolwajl Lispro-Aabc (Lyumjev Kwikpen U-100 Insulin) 100 unit/mL insulin pen Active 30 UNIT SUBCUT 3x/Day before meals December 05, 2022 12:00am FSBS 151-200 2 u 200-250 3 units 250-300 5 units 300-350 6 units 351-400 7 units per patientIron (17 sources)take 1 tablet by mouth once dailyIron 325 (65 Fe) MG 1 tablet Orally Once a day for 30 day(s) Akemlf14 hr levomilnacipran 120 mg extended release oral capsule (20 sources)Serotonin and Norepinephrine Reuptake InhibitorStart: 07-29-2021 Fetzima 120 MG extended release capsule 07/06/2023 ActiveStart: 01-24-2018 End: 20-57-8507sunv 1 capsule by mouth once dailyLevomilnacipran (Fetzima) 80 mg Capsule,Extended Release 24 Hr Discontinued 80 MG PO Daily January 24, 2018 12:00am July 29, 2021 3:57pmlevothyroxine sodium 0.075 mg oral tablet (20 sources)l-ThyroxineStart: 22-33-9142fgyharwyjptjy (Synthroid, Levoxyl) 75 MCG tablet 01/01/2022 ActiveStart: 82-13-4579Gmlhodrhobwak 75 mcg Tablet Active 50 MCG PO Every morning July 29, 2021 12:00am Complies with drug therapy Start: 05-45-2436zffz 50 ug by mouth once daily in the morningLevothyroxine Active 50 MCG PO Every morning July 29, 2021 12:00amtake 1 tablet by mouth once daily in the morningloperamide hydrochloride 2 mg oral tablet (20 sources)Opioid AgonistStart: 12-88-6075xhslkdwipl (Imodium A-D) 2 MG tablet 1 tablet 07/01/2023 ActiveStart: 07-01-2023 End: 26-16-0051laip 1 tablet by mouth four times daily as neededLoperamide (Imodium A-D) 2 mg tablet Discontinued 1 TAB PO Four times daily July 01, 2023 12:00am September 19, 2024 10:01am FreeTextSi tablet as needed Orally Four times a day; Note: Source Status: Start; Qty: 40 Tablet; Provider: Marbella Whitt AStart: 35-97-6888etpl 1 tablet by mouth every six hoursImodium A-D 2 MG 1 tablet as needed Orally Four times a day for 10 days Mar, Active Lubricant Eye Drops 0.5 % (20 sources)Start: 27-90-3869okss 1 drop(s) into the eye(s) three times daily as neededStart: 06-43-1950Gyyge: 14-88-1044bobb 1 drop(s) into the eye(s) three times daily as neededLubricant Eye Drops 0.5 % 1 drop each eye Ophthalmic TID PRN for 30 days Jul, Activemagnesium oxide 400 mg oral tablet (20 sources)Start: 93-13-1125ccmd 1 tablet by mouth once dailyStart: 01-24-2018 End: 25-59-4496jbcj 1 capsule by mouth once dailyMagnesium Oxide 400 mg Capsule Discontinued 400 MG PO Daily January 24, 2018 12:00am November 9:53am Start: 12-16-2016 End: 71-43-4452peir 1 tablet by mouth once dailyMagnesium Oxide 400 mg tablet Discontinued 1 TAB PO Daily December 26, 2016 12:47pm April 17, 2017 11:02ammirtazapine 45 mg oral tablet (20 sources)Start: 32-43-8493ykwmbxstoau (Remeron) 45 MG tablet 07/06/2023 ActiveStart: 07-29-2021 End: 12-42-1597wikj 1 tablet by mouth once dailyMirtazapine (Remeron) 30 mg Tablet Discontinued 30 MG PO Daily August 16, 2021 12:00am September 26, 2021 9:17am Start: 07-29-2021 End: 77-15-8574Loepl: 12-16-2016 End: 53-12-0279acrw 1 tablet by mouth at bedtimeMirtazapine 15 mg tablet Discontinued 1 TAB PO Bedtime December 26, 2016 12:47pm April 17, 2017 11:02amStart: 12-16-2016 End: 13-69-0878hvxcdyjhvlc 10 mg oral tablet (20 sources)Leukotriene Receptor AntagonistStart: 12-16-2016 End: 35-07-5595rtpk 1 tablet by mouth once dailymontelukast (Singulair) 10 MG tablet Indications: Chronic obstructive pulmonary disease, unspecified COPD type (HCC) Take 1 tablet (10 mg) by mouth 1 (one) time each day at the same time 30 tablet 5 01/14/2024 ActiveOlopatadine 0.1 % drops (5 sources)Start: 91-18-0704pjiv 1 drop(s) into the eye(s) twice daily Olopatadine 0.1 % drops Active DROPS OPHTHALMIC July 01, 2023 12:00am FreeTextSig: INSTILL 1 DROP INTO AFFECTED EYE TWICE A DAY FOR 30 DAYS; Note: Source Status: Start; Refills: 5; Qty: 15 Milliliter; Provider: Marbella Whitt ( )Start: 78-21-1865ndaz 1 drop(s) into the eye(s) twice daily Olopatadine 0.1 % drops Active DROPS OPHTHALMIC June 30, 2023 11:00pm FreeTextSig: INSTILL 1 DROP INTO AFFECTED EYE TWICE A DAY FOR 30 DAYS; Note: Source Status: Start; Refills: 5; Qty: 15 Milliliter; Provider: Marbella Whitt ( )ondansetron 8 mg disintegrating oral tablet (9 sources)Serotonin-3 Receptor AntagonistStart: 71-04-3926wbfj 1 tablet by mouth every eight hours as needed for feubog74 hr oxybutynin chloride 10 mg extended release oral tablet (20 sources)Cholinergic Muscarinic AntagonistStart: 40-32-5867vvbc 1 tablet by mouth once daily in the morningOxybutynin Chloride 10 mg Tablet Extended Release 24hr Active 10 MG PO Every morning January 24, 2018 12:00am Complies with drug therapyStart: 12-16-2016 End: 01-85-4480lbir 1 tablet by mouth once dailyOxybutynin Chloride 10 mg tablet extended release 24hr Discontinued 1 TAB PO Daily December 26, 2016 12:47pm April 17, 2017 11:00amOxygen 4-6 liters (20 sources)Oxygen 4-6 liters continuous 5 liters ActiveOxygen 4-6 liters continuous ActiveOzempic, 0.25 or 0.5 MG/DOSE, 2 MG/3ML solution pen-injector (16 sources)Start: 08-22-2024 End: 12-82-6000Bxbgzer, 0.25 or 0.5 MG/DOSE, 2 MG/3ML solution pen-injector 08/22/2024 11/14/2024 Discontinued (Dose adjustment)Start: 36-37-8112Xnqcxkl, 0.25 or 0.5 MG/DOSE, 2 MG/3ML solution pen-injector 08/22/2024 Active prednisoLONE acetate 10 mg/ml ophthalmic suspension (20 sources)CorticosteroidStart: 27-30-0017dqwsztxoIXWA acetate (Pred-Forte) 1 % ophthalmic suspension 01/26/2023 ActivePrenatal (20 sources) ActiveProAir HFA 108 (90 Base) MCG/ACT (20 sources)take 1 puff(s) by inhalation every four hours as neededProAir HFA 108 (90 Base) MCG/ACT 1 puff as needed Inhalation every 4 hrs for 30 days Active take 1 puff(s) by inhalation every four hours as neededRollator Ultra-Light - (20 sources)Start: 36-41-9860Nmfjm: 81-23-0653Ghmpztpg Ultra-Light - as directed August, ActiveStart: 01-13-9803Dxelx: 54-43-4607Eytsxryl Ultra-Light - as directed ROLLATOR WITH OXYGEN TANK SINGH August, Active1 mg dose 1.5 ml semaglutide 1.34 mg/ml pen injector (20 sources)Start: 11-14-2024 End: 86-19-6442qibrsp 1 mg by subcutaneous injection every weeksemaglutide (Ozempic, 1 MG/DOSE,) 2 MG/1.5ML solution pen-injector Indications: Type 2 diabetes mellitus with hyperglycemia, with long-term current use of insulin ([facility]) Inject 1 mg under the skin 1 (one) time per week 9 mL 1 11/14/2024 05/01/2025 ActiveStart: 08-22-2024 End: 82-40-5371tpsjet 0.5 mg by subcutaneous injection every weeksemaglutide (Ozempic, 0.25 or 0.5 MG/DOSE,) 2 MG/1.5ML solution pen-injector Indications: Type 2 diabetes mellitus with hyperglycemia, with long-term current use of insulin (HCC) Inject 0.5 mg under the skin 1 (one) time per week 4.5 mL 1 08/22/2024 02/06/2025 ActiveStart: 07-29-2021 End: 32-95-2106Ebzobmvdxko (Ozempic) 0.25 mg or 0.5 mg(2 mg/1.5 mL) Pen Injector Discontinued 0.5 MG SUBCUT every week July 29, 2021 12:00am August 16, 2021 10:25amStart: 07-29-2021 End: 52-47-2151Yjhhn: 65-01-5750Cizmcyy (0.25 or 0.5 MG/DOSE) 2 MG/1.5ML 0.25 mg weekly for 4 weeks then increase to 0.5 mg weekly Subcutaneous weekly for 30 days May, ActiveSemaglutide (10 sources)Start: 84-31-7750Xtgym: 28-47-9972Wuholfhgkhb,0.25 or 0.5MG/DOS, (Ozempic, 0.25 or 0.5 MG/DOSE,) 2 MG/3ML solution pen-injector (20 sources)Start: 28-18-1796Dcxhmrloniy,0.25 or 0.5MG/DOS, (Ozempic, 0.25 or 0.5 MG/DOSE,) 2 MG/3ML solution pen-injector Indications: Type 2 diabetes mellitus with hyperglycemia, with long-term current use of insulin (HCC) INJECT 0.5 MG UNDER THE SKIN 1 (ONE) TIME PER WEEK 6 mL 1 10/19/2024 Activetheophylline 200 mg extended release oral capsule (20 sources)MethylxanthineStart: 08-16-2021 End: 50-18-8649frix 200 mg by mouth once dailyTheophylline (Thad) 80 mg/15 mL Elixir Discontinued 200 MG PO Daily August 16, 2021 12:00am December 05, 2022 1:43pmStart: 07-13-2013 End: 71-13-3224stij 1 capsule by mouth once dailytheophylline ER (Thad-24) 200 MG 24 hr capsule Indications: Chronic obstructive pulmonary disease, unspecified COPD type (HCC) Take 1 capsule (200 mg) by mouth 1 (one) time each day at the same time 30 capsule 5 01/14/2024 ActivetiZANidine 4 mg oral tablet (20 sources)Central alpha-2 Adrenergic AgonistStart: 65-55-6484Akeew: 07-01-2023 Start: 07-29-2021 End: 73-90-6029cemh 0.5 tablet by mouth twice daily in the morning, then take 2 tablets by mouth at bedtimeTizanidine (Zanaflex) 4 mg Tablet Discontinued 4 MG PO Twice daily July 29, 2021 12:00am September 26, 2021 9:19am half tab in AM and 2 at HSStart: 01-24-2018 End: 14-06-6585dhgb 1 capsule by mouth twice dailyTizanidine (Zanaflex) 4 mg Capsule Discontinued 4 MG PO Twice daily January 24, 2018 12:00am July 29, 2021 11:11amStart: 12-16-2016 End: 30-43-5298zdxi 1 tablet by mouth twice daily as needed for anxiety Tizanidine 4 mg tablet Discontinued 1 TAB PO Twice daily as needed for Anxiety 60 30 December 26, 2016 12:47pm April 17, 2017 10:58amStart: 12-16-2016 End: 47-71-9888zcsbpdulcb 3 mg/ml ophthalmic solution (15 sources)Aminoglycoside AntibacterialStart: 73-59-1509mtkg 1 drop(s) into the eye(s) every four hoursTobramycin 0.3 % 1 drop into affected eye Ophthalmic every 4 hrs for 7 days May, ActivetraMADol hydrochloride 50 mg oral tablet (20 sources)Opioid Agonisttake 1 tablet by mouth every eight hourstraMADol HCl 50 MG 1 tablet as needed Orally three times a day Activetriamcinolone acetonide 0.001 mg/mg topical ointment (20 sources)CorticosteroidStart: 05-15-2023 End: 57-77-2258lyargcfhdntdu (Kenalog) 0.1 % ointment 05/15/2023 08/25/2024 Discontinued (Med list cleanup)Start: 78-30-3381acmxroyvpuiru (Kenalog) 0.1 % ointment APPLY TWICE DAILY FOR 2 WEEKS APPLY TO LOWER LEGS DISCUSSED 05/15/2023 ActiveStart: 33-13-8379Kqbehft D-3 1999 (20 sources)take 2 capsules by mouth once dailytake 2 capsules by mouth once dailyVitamin D-3 1999 2 CAP Orally Once a day for 90 days Activetake 2 capsules by mouth once dailyVitamin D-3 1999 2 CAP Orally Once a day for 30 day(s) Active Wheelchair - (20 sources)Start: 31-43-3940Zyhad: 66-24-9871Tknzp: 20-78-3663Zkljkonham - as directed WITH OXYGEN TANK SINGH August, Activezonisamide 25 mg oral capsule (20 sources)Anti-epileptic AgentStart: 25-53-1810sosyryntsr (Zonegran) 25 MG capsule 07/01/2023 ActiveStart: 99-74-2111wffkcgxdua (Zonegran) 25 MG capsule 07/01/2023 ActiveStart: 34-74-8047elfk 50 mg by mouth twice dailyZonisamide Active 50 MG PO Twice daily July 01, 2023 12:00amStart: 07-29-2021 End: 63-49-3325zbjp 1 capsule by mouth twice dailyZonisamide 50 mg Capsule Discontinued 25 MG PO Twice daily July 29, 2021 12:00am July 01, 2023 4:00pmStart: 07-29-2021 End: 02-60-9708xrzl 25 mg by mouth twice dailyZonisamide Discontinued 25 MG PO Twice daily July 29, 2021 12:00am July 01, 2023 4:00pmtake 2 capsules by mouth every twelve hourstake 2 capsules by mouth every twelve hours (20 sources)Start: 56-39-8331Qcvvl: 07-01-2023 End: 53-56-3629Upwar: 07-01-2023 End: 36-43-6882Xvggg: 14-18-9433Kcucc: 63-27-0939Neoem: 05-27-2023 End: 05-27-2023 Completed/Discontinued Medications MedicationDrug Class(es)DatesSig (Normalized)Sig (Original)allopurinol 300 mg oral tablet (20 sources)Xanthine Oxidase InhibitorStart: 01-24-2018 End: 07-59-1502njqk 1 tablet by mouth once dailyAllopurinol 300 mg Tablet Discontinued 300 MG PO Daily January 24, 2018 12:00am July 29, 2021 11:13am amitriptyline hydrochloride 10 mg oral tablet (20 sources)Tricyclic AntidepressantStart: 07-29-2021 End: 19-73-6636ujvp 1 tablet by mouth once daily in the morningAmitriptyline 10 mg Tablet Discontinued 10 MG PO Every morning July 29, 2021 12:00am September 19, 2024 10:00amasenapine 5 mg sublingual tablet (20 sources)Atypical AntipsychoticStart: 55-42-3572axch 5 mg under the tongue once daily at bedtimeAsenapine Maleate Active 5 MG SUBLINGUAL Daily at bedtime July 01, 2023 12:00amStart: 01-24-2018 End: 06-31-1713axsa 1 tablet under the tongue once daily at bedtimeAsenapine Maleate 5 mg tablet, sublingual Discontinued 5 MG SUBLINGUAL Daily at bedtime June 12:00am September 19, 2024 10:00amAsenapine Maleate (Saphris ([place])) 5 mg Tablet, Sublingual (20 sources)Start: 01-24-2018 End: 32-31-9128jgwb 1 tablet under the tongue once dailyAsenapine Maleate (Saphris ([place])) 5 mg Tablet, Sublingual Discontinued 5 MG SUBLINGUAL Daily January 23, 2018 11:00pm August 16, 2021 9:19amStart: 01-24-2018 End: 00-71-0610evln 1 tablet under the tongue once dailyAsenapine Maleate (Saphris ([place])) 5 mg Tablet, Sublingual Discontinued 5 MG SUBLINGUAL Daily January 24, 2018 12:00am August 16, 2021 10:19amAsenapine Maleate (Saphris) 5 mg Tablet, Sublingual (20 sources)Start: 08-16-2021 End: 52-21-3860gzhf 1 tablet under the tongue once daily at bedtimeAsenapine Maleate (Saphris) 5 mg Tablet, Sublingual Discontinued 5 MG SUBLINGUAL Daily at bedtime August 15, 2021 11:00pm September 26, 2021 8:13amStart: 08-16-2021 End: 23-41-2466xpwa 1 tablet under the tongue once daily at bedtimeAsenapine Maleate (Saphris) 5 mg Tablet, Sublingual Discontinued 5 MG SUBLINGUAL Daily at bedtime August 16, 2021 12:00am September 26, 2021 9:13amatorvastatin 40 mg oral tablet (20 sources)HMG-CoA Reductase InhibitorStart: 12-19-2016 End: 88-25-0945hske 1 tablet by mouth once daily in the eveningAtorvastatin 40 mg Tablet Discontinued 40 MG PO Every evening December 26, 2016 12:47pm April 17, 2017 11:08ambenzonatate 100 mg oral capsule (20 sources)Non-narcotic AntitussiveStart: 06-15-2023 End: 29-21-8009oqnh 1 capsule by mouth three times daily as neededBenzonatate 100 mg capsule Discontinued 0 .ROUTE .COMPLEX October 29, 2023 4:20pm September 19, 2024 10:00am TAKE 1 CAPSULE BY MOUTH THREE TIMES A DAY NEEDED FOR 5 DAYS Start: 06-30-2022 End: 46-95-0367vwcr 1 capsule by mouth three times daily as needed for cough Benzonatate 100 mg capsule Discontinued 100 MG PO Three times daily as needed for cough 2023 1:00am June 15, 2023 9:08ambrexpiprazole 3 mg oral tablet (20 sources)Atypical AntipsychoticStart: 07-01-2023 End: 26-43-8029qtos 1 tablet by mouth once dailyBrexpiprazole 3 mg tablet Discontinued 3 MG PO Daily July 01, 2023 12:00am October 06, 2024 11:20am Start: 15-72-7494msst 1 tablet by mouth once dailyRexulti 4 MG tablet Take 1 tablet by mouth Daily 08/21/2022 ActiveStart: 01-24-2018 End: 43-75-4261bged 1 tablet by mouth once daily in the morningBrexpiprazole (Rexulti) 2 mg Tablet Discontinued 3 MG PO Every morning January 24, 2018 12:00am July 01, 2023 4:13pmStart: 12-16-2016 End: 91-21-3864avlj 1 tablet by mouth once dailyBrexpiprazole 4 mg tablet Discontinued 1 TAB PO Daily December 26, 2016 12:47pm April 17, 2017 11:06amtake 1 tablet by mouth once dailyBrexpiprazole 3 MG 1 tablet Orally Once a day ActiveCarboxymethylcellulose Sodium (Refresh Tears) 0.5 % drops (12 sources)Start: 07-08-2023 End: 18-42-8488adhs 1 drop(s) into the eye(s) twice daily as needed Carboxymethylcellulose Sodium (Refresh Tears) 0.5 % drops Discontinued 2 DROPS EYE-BOTH Twice dailyas needed for dry eye(s) July 08, 2023 12:00am October 09, 2023 12:17pmStart: 07-08-2023 End: 01-05-6446eskz 1 drop(s) into the eye(s) twice daily as needed Carboxymethylcellulose Sodium (Refresh Tears) 0.5 % drops Discontinued 2 DROPS EYE-BOTH Twice dailyas needed for dry eye(s) July 07, 2023 11:00pm October 09, 2023 11:17amStart: 07-08-2023 End: 15-14-3458jupj 1 drop(s) into the eye(s) twice dailyCarboxymethylcellulose Sodium (Refresh Tears) 0.5 % drops Discontinued 2 DROPS EYE-BOTH Twice dailyJuly 08, 2023 12:00am October 09, 2023 12:17pmStart: 95-23-7960yogv 1 drop(s) into the eye(s) twice dailyCarboxymethylcellulose Sodium (Refresh Tears) 0.5 % drops Active 2 DROPS EYE-BOTH Twice daily July 08, 2023 12:00amcarvedilol 25 mg oral tablet (20 sources)alpha-Adrenergic Apple, beta-Adrenergic BlockerStart: 11-11-2023 End: 39-59-4595wbft 1 tablet by mouth twice daily at mealtimeCarvedilol 25 mg tablet Discontinued 0 .ROUTE .COMPLEX 180 March 07, 2024 2:05pm September 28, 2024 9:31am TAKE 1 TABLET BY MOUTH TWICE A DAY WITH FOOD FOR 90 DAYSStart: 07-01-2023 End: 03-25-6054jwmi 1 tablet by mouth twice dailyCarvedilol 25 mg tablet Discontinued 25 MG PO Twice daily July 01, 2023 12:00am November 11, 2023 7 :49amStart: 12-19-2016 End: 93-62-3363tehe 4 tablets by mouth twice dailyCarvedilol 6.25 mg tablet Discontinued 25 MG PO Twice daily January 24, 2018 6:40pm July 01, 2023 4:07pmStart: 12-19-2016 End: 31-39-2784ghhh 1 tablet by mouth twice dailyCarvedilol 6.25 mg Tablet Discontinued 6.25 MG PO Twice daily 60 30 December 26, 2016 12:47pm January 24, 2018 6:41pmStart: 12-19-2016 End: 94-96-2142Tcihs: 12-16-2016 End: 67-85-5429gouz 1 tablet by mouth twice dailyCarvedilol 25 mg tablet Discontinued 1 TAB PO Twice daily December 16, 2016 12:00am December 19, 2016 11:10amtake 1 tablet by mouth every twelve hoursCoreg 25 MG tablet Take 25 mg by mouth every 12 (twelve) hours Activecelecoxib 200 mg oral capsule (20 sources)Nonsteroidal Anti-inflammatory DrugStart: 08-16-2021 End: 91-16-8390qain 1 capsule by mouth twice dailyCelecoxib 200 mg Capsule Discontinued 200 MG PO Twice daily August 16, 2021 12:00am September 26, 2021 9:13am take 1 capsule by mouth every twelve hoursCelecoxib 200 MG 1 capsule with food Orally Twice a day Activecolestipol hydrochloride 1000 mg oral tablet (20 sources)Bile Acid SequestrantStart: 07-01-2023 End: 86-02-3875Dgcdjviiym 1 gram tablet Discontinued 2 GM PO Daily July 01, 2023 12:00am October 06, 2024 11:19amStart: 36-04-7479usaz 2 g by mouth once dailyColestipol Active 2 GM PO Daily July 01, 2023 12:00amStart: 07-29-2021 End: 10-80-5691Gtskooolgg 1 gram Tablet Discontinued 2 GM PO Daily July 29, 2021 12:00am July 30, 2022 3:01pmStart: 07-29-2021 End: 13-65-4631mibi 2 g by mouth once dailyColestipol Discontinued 2 GM PO Daily July 29, 2021 12:00am July 30, 2022 3:01pmStart: 06-17-5049gguq 2 tablets by mouth every twenty-four hoursStart: 27-73-3810gnks 2 tablets by mouth every twenty-four hoursStart: 99-37-6682gfbb 2 tablets by mouth every twenty-four hourscyclobenzaprine hydrochloride 10 mg oral tablet (20 sources)Muscle RelaxantStart: 07-29-2021 End: 45-08-0040unqe 1 tablet by mouth at bedtimeCyclobenzaprine 10 mg Tablet Discontinued 10 MG PO Bedtime August 16, 2021 12:00am September 19, 2024 10:01am diazePAM 10 mg oral tablet (20 sources)BenzodiazepineStart: 12-16-2016 End: 31-19-1212etwb 1 tablet by mouth once daily as needed for anxietyDiazepam 10 mg tablet Discontinued 1 TAB PO Daily as needed for Anxiety 30 30 December 26, 2016 12:47pm April 17, 2017 11:05ameluxadoline 100 mg oral tablet (20 sources)mu-Opioid Receptor AgonistStart: 12-16-2016 End: 02-32-1228zaui 1 tablet by mouth twice dailyEluxadoline (Viberzi) 100 mg Tablet Discontinued 1 TAB PO Twice daily April 17, 2017 1:00am July 29, 2021 11:11am0.3 ml enoxaparin sodium 100 mg/ml prefilled syringe (20 sources)Low Molecular Weight HeparinStart: 12-19-2016 End: 59-30-1957Csrilmmcmz (Lovenox) 30 mg/0.3 mL Syringe Discontinued 30 MG SUBCUT Q12H 60 December 19, 2016 12:00am December 26, 2016 12:20pm estrogens, conjugated (snf) 0.3 mg oral tablet (20 sources)EstrogenStart: 01-24-2018 End: 69-31-4329fies 1 tablet by mouth once dailyConjugated Estrogens (Premarin) 0.3 mg Tablet Discontinued 0.3 MG PO Daily January 24, 2018 12:00am July 29, 2021 11:11amferrous sulfate 325 mg oral tablet (20 sources)Start: 07-01-2023 End: 43-15-5166sltr 1 tablet by mouth once dailyFerrous Sulfate 325 mg (65 mg iron) tablet Discontinued 325 MG PO Daily July 01, 2023 12:00am September 19, 2024 10:01amStart: 26-52-0925yuzy 1 tablet by mouth every twenty-four hours Start: 13-22-6399kfid 1 tablet by mouth once dailyFerrous Sulfate 325 (65 Fe) MG 1 tablet Orally daily for 90 days Oct, ActiveStart: 07-29-2021 End: 80-04-8928raap 1 tablet by mouth once dailyFerrous Sulfate (Iron) 325 mg (65 mg iron) Tablet Discontinued 325 MG PO Daily October 23, 2021 1:32pm July 30, 2022 3:01pmStart: 12-16-2016 End: 50-27-9972ikcc 1 tablet by mouth once dailyFerrous Sulfate 325 mg (65 mg iron) tablet Discontinued 1 TAB PO Daily December 26, 2016 12:47pm January 24, 2018 6:40pmStart: 12-16-2016 End: 45-65-1702Tvbepikmble Propion-Salmeterol (20 sources)Corticosteroid, beta2-Adrenergic AgonistStart: 12-26-2016 End: 89-59-4645Tnugf: 12-26-2016 End: 45-77-8988fmrs 1 puff(s) by inhalation twice dailyFluticasone Propion- Salmeterol (Advair Hfa) 115-21 mcg/actuation Hfa Aerosol Inhaler Discontinued 2 PUFF INHALATION Twice daily December 26, 2016 11:47am April 17, 2017 10:04amStart: 12-26-2016 End: 55-08-8255imot 1 puff(s) by inhalation twice dailyFluticasone Propion- Salmeterol (Advair Hfa) 115-21 mcg/actuation Hfa Aerosol Inhaler Discontinued 2 PUFF INHALATION Twice daily December 26, 2016 12:47pm April 17, 2017 11:04amStart: 12-19-2016 End: 71-65-3628Fdhbe: 12-19-2016 End: 76-15-8539skch 1 puff(s) by inhalation twice dailyFluticasone Propion- Salmeterol (Advair Hfa) 115-21 mcg/actuation Hfa Aerosol Inhaler Discontinued 2 PUFF INHALATION Twice daily December 18, 2016 11:00pm December 26, 2016 11:47amStart: 12-19-2016 End: 60-62-4024xwnj 1 puff(s) by inhalation twice dailyFluticasone Propion- Salmeterol (Advair Hfa) 115-21 mcg/actuation Hfa Aerosol Inhaler Discontinued 2 PUFF INHALATION Twice daily December 19, 2016 12:00am December 26, 2016 12:47pmipratropium bromide 0.021 mg/actuat metered dose nasal spray (20 sources)AnticholinergicStart: 12-16-2016 End: 88-67-4847Btauryatoms [place] 0.03 % [place],Non-Aerosol Discontinued 2 SPRAY INTRANASAL Twice daily as needed for Allergy Symptoms December 26, 2016 12:47pm April 17, 2017 11:02amStart: 12-16-2016 End: 23-31-7160Bgprcjnnizr [place] Discontinued 2 SPRAY INTRANASAL Twice daily December 26, 2016 12:47pm April 17, 2017 11:02amketoconazole 20 mg/ml topical cream (20 sources)Azole AntifungalStart: 09-06-2024 End: 05-29-9084Dgsxwwbihxiz 2 % cream Discontinued 0 .ROUTE .COMPLEX September 06, 2024 9:25am September 19, 2024 10:02am APPLY TOPICALLY TWICE DAILY FOR 14 DAYS Start: 02-09-2024 End: 74-72-4441Xpxwgzagpgpl 2 % cream Discontinued 1 APPLIC TOPICAL Twice daily February 09, 2024 12:00am September 06, 2024 9:25amlenalidomide 25 mg oral capsule (17 sources)Thalidomide AnalogStart: 11-08-2024 End: 12-37-9660Bmhliufgmkvq (Revlimid) 25 mg capsule Discontinued 25 MG PO Daily November 30, 2024 1:56pm December 26, 2024 11:50am for 21 days of 28 day cycle.swallow whole with glass of water; do not open, crush, chew , break, or dissolve.adult female not of reproductive potential auth#[id number] hydrochloride 850 mg oral tablet (20 sources)BiguanideStart: 07-29-2021 End: 76-18-5632qzhu 1 tablet by mouth once dailyMetformin 850 mg Tablet Discontinued 850 MG PO Daily July 29, 2021 12:00am December 05, 2022 1:40pm Start: 04-17-2017 End: 98-65-8789kgzq 1 tablet by mouth twice dailyMetformin 500 mg Tablet Discontinued 500 MG PO Twice daily April 17, 2017 1:00am January 24, 2018 6:41pmmetFORMIN hydrochloride 850 mg / pioglitazone 15 mg oral tablet (20 sources)Biguanide, Peroxisome Proliferator Receptor alpha Agonist, Peroxisome Proliferator Receptor gamma Agonist, ThiazolidinedioneStart: 07-01-2023 End: 10-41-3560pzcx 1 tablet by mouth twice dailyPioglitazone-Metformin 15-850 mg tablet Discontinued 1 TAB PO Twice daily July 01, 2023 12:00am September 19, 2024 10:02amStart: 07-01-2023 End: 27-62-2015Wtgfr: 12-16-2016 End: 73-31-2356mojq 1 tablet by mouth once daily at breakfastPioglitazone- Metformin 15-850 mg tablet Discontinued 1 TAB PO Daily with breakfast December 16, 2016 12:00am December 26, 2016 12:42pmStart: 12-16-2016 End: 60-15-7909ooml 1 tablet by mouth every twelve hoursmethylPREDNISolone 4 mg oral tablet (13 sources)CorticosteroidStart: 08-08-2024 End: 09-14-9437Qzskrcaygebsemlwuk 4 mg tablets,dose pack Discontinued 0 PO per package directions August 08, 2024 12:00am September 19, 2024 10:01am PO PER PKG DIR for 6 daysStart: 08-08-2024 End: 40-88-8553Sdtcm: 83-04-1772qpgoqbRNOJCTTuamtj 4 MG as directed Orally as directed for 6 days Jul, Activenabumetone 750 mg oral tablet (20 sources)Nonsteroidal Anti-inflammatory DrugStart: 01-24-2018 End: 77-28-0079jswv 1 tablet by mouth twice dailyNabumetone 750 mg Tablet Discontinued 750 MG PO Twice daily January 24, 2018 12:00am July 29, 2021 11:12amStart: 12-16-2016 End: 59-63-9846ekhs 1 tablet by mouth twice dailyNabumetone 750 mg tablet Discontinued 1 TAB PO Twice daily December 26, 2016 12:47pm April 17, 2017 11:01amnortriptyline 10 mg oral capsule (20 sources)Tricyclic AntidepressantStart: 01-24-2018 End: 96-36-8407rbut 1 capsule by mouth once daily at bedtimeNortriptyline 10 mg Capsule Discontinued 10 MG PO Daily at bedtime January 24, 2018 12:00am July 29, 2021 11:12amStart: 12-16-2016 End: 46-09-3126wdqj 1 capsule by mouth once dailyNortriptyline 25 mg capsule Discontinued 1 CAP PO Daily December 26, 2016 12:47pm April 17, 2017 11:00amolopatadine 1 mg/ml ophthalmic solution (20 sources)Histamine-1 Receptor InhibitorStart: 09-06-2024 End: 82-32-1633vdhy 1 drop(s) into the eye(s) twice dailyOlopatadine 0.1 % drops Discontinued 0 .ROUTE .COMPLEX September 06, 2024 9:26am September 19, 2024 10:02am INSTILL 1 DROP INTO AFFECTED EYE TWICE A DAYStart: 07-01-2023 End: 83-68-1094izlr 1 drop(s) into the eye(s) twice dailyOlopatadine 0.1 % drops Discontinued DROPS OPHTHALMIC July 01, 2023 12:00am September 06, 2024 9:26am FreeTextSig: INSTILL 1 DROP INTO AFFECTED EYE TWICE A DAY FOR 30 DAYS; Note: Source Status: Start;Refills: 5; Qty: 15 Milliliter; Provider: Marbella Whitt ( )Start: 25-61-9194gnpg 1 drop(s) into the eye(s) twice daily Olopatadine Active DROPS OPHTHALMIC July 01, 2023 12:00am FreeTextSig: INSTILL 1 DROP INTO AFFECTED EYE TWICE A DAY FOR 30 DAYS; Note: Source Status: Start; Refills: 5; Qty: 15 Milliliter; Provider: Marbella Whitt ( ) Start: 08-81-3148idgrusmdowt (Patanol) 0.1 % ophthalmic solution 06/26/2023 ActiveStart: 84-95-2915uhou 1 drop(s) into the eye(s) twice dailyolopatadine (Patanol) 0.1 % ophthalmic solution INSTILL 1 DROP INTO AFFECTED EYE TWICE A DAY 06/26/2023 ActiveStart: 89-04-6275dvnd 1 drop(s) into the eye(s) twice daily Olopatadine HCl 0.1 % 1 drop into affected eye Ophthalmic Twice a day for 30 days Sep, ActiveStart: 45-51-9860Bbydqaqdjnf HCl 0.1 % INSTILL 1 DROP INTO AFFECTED EYE TWICE A DAY FOR 30 DAYS for 30 days Activeomeprazole 40 mg delayed release oral capsule (20 sources)Proton Pump InhibitorStart: 07-30-2023 End: 92-95-9291Bcndsgcwge 40 mg capsule,delayed release(DR/EC) Discontinued 0 .ROUTE .COMPLEX 90 January 25, 2024 7:36am July 18, 2024 8:09am TAKE 1 CAPSULE BY MOUTH EVERY DAY 30 MINUTES BEFORE MORNING MEAL FOR90 DAYSStart: 01-24-2018 End: 42-00-2636kvuy 1 capsule by mouth once daily in the morningOmeprazole 40 mg Capsule,Delayed Release(Dr/Ec) Discontinued 40 MG PO Every morning January 24, 2018 12:00am July 30, 2023 12:22pmStart: 12-16-2016 End: 81-16-8879qpak 1 capsule by mouth once dailyOmeprazole 40 mg capsule,delayed release(DR/EC) Discontinued 1 CAP PO Daily December 26, 2016 12:47pm April 17, 2017 11:00ampioglitazone 15 mg oral tablet (20 sources)Peroxisome Proliferator Receptor alpha Agonist, Peroxisome Proliferator Receptor gamma Agonist, ThiazolidinedioneStart: 12-26-2016 End: 55-49-9101kxnn 1 tablet by mouth twice dailyPioglitazone 15 mg tablet Discontinued 15 MG PO Twice daily January 24, 2018 6:45pm July 29, 2021 11:12amStart: 12-26-2016 End: 62-84-7764obfu 1 tablet by mouth once daily at breakfastPioglitazone 15 mg Tablet Discontinued 15 MG PO Daily with breakfast December 26, 2016 12:00am January 24, 2018 6:45pmprenatal vit-iron fum-folic ac ( Vitamin) (16 sources)Start: 07-01-2023 End: 09-67-0344thtlicct vit-iron fum-folic ac ( Vitamin) Discontinued PO July 01, 2023 12:00am September 19, 2024 10:02amStart: 89-29-0174gnagembx vit- iron fum-folic ac ( Vitamin) Active PO June 30, 2023 11:00pmStart: 66-31-6907mulhugmj vit-iron fum-folic ac ( Vitamin) Active PO July 01, 2023 12:00am24 hr QUEtiapine 300 mg extended release oral tablet (20 sources)Atypical AntipsychoticStart: 12-16-2016 End: 01-78-0971cozx 1 tablet by mouth every twenty-four hours at bedtime Quetiapine 300 mg tablet extended release 24 hr Discontinued 1 TAB PO Bedtime December 12:47pm April 17, 2017 10:59amsucralfate 1000 mg oral tablet (20 sources)Aluminum ComplexStart: 69-02-6277wjdf 1 tablet by mouth twice daily Sucralfate 1 gram tablet Active 0 .ROUTE .COMPLEX 60 May 20, 2024 9:10am TAKE 1 TABLET BY MOUTH TWICE DAILY ON AN EMPTY STOMACHStart: 11-09-2023 End: 34-43-3426pnrc 1 tablet by mouth twice dailySucralfate 1 gram tablet Discontinued 0 .ROUTE .COMPLEX 60 May 20, 2024 9:10am September 0659:25am TAKE 1 TABLET BY MOUTH TWICE DAILY ON AN EMPTY STOMACHStart: 11-09-2023 End: 83-33-6251owbp 1 tablet by mouth twice dailySucralfate 1 gram tablet Discontinued 0 .ROUTE .COMPLEX 60 November 09, 2023 8:32am May 20, 2024 9:10am TAKE 1 TABLET BY MOUTH TWICE DAILY ON AN EMPTY STOMACHStart: 11-09-2023 take 1 tablet by mouth twice dailySucralfate 1 gram tablet Active 0 .ROUTE .COMPLEX 60 November 09, 2023 7:32am TAKE 1 TABLET BY MOUTH TWICE DAILY ON AN EMPTY STOMACHStart: 75-35-4003iwlr 1 tablet by mouth twice dailySucralfate Active 0 .ROUTE .COMPLEX 60 November 09, 2023 8:32am TAKE 1 TABLET BY MOUTH TWICE DAILY MARIEL EMPTY STOMACHStart: 07-29-2021 End: 86-98-5883bmvp 1 tablet by mouth three times dailySucralfate 1 gram Tablet Discontinued 1 GM PO Three times daily July 29, 2021 12:00am October 8:32amStart: 41-43-4554glae 1 g by mouth twice dailySucralfate Active 1 GM PO Twice daily July 29, 2021 12:00amStart: 09-44-3215fgfr 1 tablet by mouth every eight hoursSucralfate 1 GM 1 tablet on an empty stomach Orally tid for 30 days August, Activesucralfate (Carafate) 1 g tablet every 12 (twelve) hours Activetake 1 tablet by mouth twice dailytake 1 tablet by mouth twice daily Sucralfate 1 GM TAKE 1 TABLET BY MOUTH TWICE DAILY ON AN EMPTY STOMACH for 30 Mqfwal94 hr venlafaxine 150 mg extended release oral capsule (20 sources)Serotonin and Norepinephrine Reuptake InhibitorStart: 12-16-2016 End: 79-57-4642yyfc 1 capsule by mouth once dailyVenlafaxine 150 mg capsule,extended release 24hr Discontinued 2 CAP PO Daily 60 December 26, 2016 12:47pm April 17, 2017 10:50amvortioxetine 20 mg oral tablet (20 sources)Start: 01-24-2018 End: 69-69-0447iaug 1 tablet by mouth once dailyVortioxetine (Trintellix) 20 mg Tablet Discontinued 20 MG PO Daily January 24, 2018 12:00am 2021 11:11amStart: 12-16-2016 End: 29-22-6602gnjs 1 tablet by mouth once dailyVortioxetine (Trintellix) 20 mg Tablet Discontinued 20 MG PO Daily December 26, 2016 12:47pm April 17, 2017 10:51amzolpidem tartrate 6.25 mg extended release oral tablet (20 sources)gamma-Aminobutyric Acid-ergic AgonistStart: 07-29-2021 End: 25-33-0456htbg 1 tablet by mouth once daily at bedtime as neededZolpidem (Ambien Cr) 6.25 mg Tablet,Ext Release Multiphase Discontinued 6.25 MG PO Daily at bedtimeas needed for Insomnia July 29, 2021 12:00am August 16, 2021 10:26am Start: 04-17-2017 End: 56-33-7164txip 1 tablet by mouth once daily at bedtime as neededZolpidem (Ambien) 5 mg Tablet Discontinued 1 TAB PO Daily at bedtime as needed for Insomnia 2017 1:00am October 05, 2017 2:58pmStart: 12-16-2016 End: 16-12-2588tehx 1 tablet by mouth at bedtime as neededZolpidem 10 mg tablet Discontinued 1 TAB PO Bedtime as needed for Insomnia December 26, 2016 12:47pm April 17, 2017 10:58amStart: 12-16-2016 End: 04-17-2017 Problems Active Problems Problem ClassificationProblemDateDocumented DateEpisodic/ChronicAcute and unspecified renal failure (20 sources)Injury of kidney; Translations: [Acute kidney failure, unspecified] Onset: 01-14-2024 Resolved: [id number]yf/social admission (8 sources)Patient encounter status; Translations: [Dietary counseling and surveillance]20-38-4956ZanjnngsInovuwt kidney disease (20 sources)Chronic kidney disease stage 3B ; Translations: [Stage 3b chronic kidney disease]Onset: 01-14-2024 Resolved: 582286-74-2361YtmcqykCcsceag kidney disease (3 sources)Chronic kidney disease; Translations: [Stage 3b chronic kidney disease N18.32]Onset: 04-02-2021 Resolved: 57-68-1054Zcyvutg obstructive pulmonary disease and bronchiectasis (20 sources)Chronic obstructive lung disease; Translations: [Chronic obstructive pulmonary disease, unspecified]Onset: 157152-78-7423MdgmxdeYkczzxuzusz and hemorrhagic disorders (12 sources)Thrombocytopenic purpura; Translations: [Immune thrombocytopenic purpura]Onset: 881612-60-6846WtioiliWciuygchvz and other anemia (16 sources)Iron deficiency anemia, unspecified; Translations: [Iron deficiency anemia, unspecified]67-32-8649XmmdvruwNmrbazdc mellitus with complications (20 sources)Type 2 diabetes mellitus; Translations: [Type 2 diabetes mellitus with unspecified complications]Onset: 04-02-2021 Resolved: 94-61-5964NfhcbokWgmyppua mellitus without complication (20 sources)Diabetes mellitus; Translations: [Type 2 diabetes mellitus without complications]Onset: 01-14-2024 Resolved: 151130-47-6296PmlmlhxIghltboi of white blood cells (11 sources)Neutropenia; Translations: [Neutropenia, unspecified]Onset: 791153-96-4354NbyeftoLjxhhqjok of lipid metabolism (8 sources)Mixed hyperlipidemia; Translations: [Mixed hyperlipidemia]01-20-2024 ChronicEsophageal disorders (20 sources)Gastroesophageal reflux disease; Translations: [Gastro-esophageal reflux disease without esophagitis]Onset: 03-21-2021 Resolved: 55-83-2403ViosilrSljnbrdes hypertension (20 sources)Essential hypertension; Translations: [Essential (primary) hypertension]Onset: 10-21-2021 Resolved: 72-07-8243YardstxRsqnb of unknown origin (10 sources)Pyrexia of unknown origin; Translations: [Fever, unspecified]Onset: 346511-77-2127HguqtfkoOwyzc and electrolyte disorders (20 sources)Dehydration; Translations: [Dehydration]Onset: 01-14-2024 Resolved: 400231-02-1087UwpilzjtVdfawpouukkslv ulcer (except hemorrhage) (20 sources)Peptic ulcer; Translations: [Peptic ulcer, site unspecified, unspecified as acute or chronic, without hemorrhage or perforation]Chronic Inflammation; infection of eye (except that caused by tuberculosis or sexually transmitteddisease) (1 source)Unspecified conjunctivitisEpisodicMaintenance chemotherapy; radiotherapy (20 sources)Patient encounter status; Translations: [Encounter for antineoplastic chemotherapy]Onset: 732321-98-5978BmfipqeGvtmnba and fatigue (20 sources)Fatigue; Translations: [Chronic fatigue, unspecified]Onset: 01-14-2024 Resolved: 768860-15-6432GbcnflnQqya disorders (20 sources)Major depression with psychotic features; Translations: [Major depressive disorder, single episode,severe with psychotic features]Onset: 01-14-2024 Resolved: 672480-36-7007CcfpgmfXzmaqqnr myeloma (20 sources)IgG myeloma; Translations: [Multiple myeloma not having achieved remission]Onset: 194013-68-7766QlthfvjZozvgyc (20 sources)Pain in toe; Translations: [Tinea unguium]35-52-8680Pmdpdhot Neoplasms of unspecified nature or uncertain behavior (20 sources)Neuropathy; Translations: [Monoclonal gammopathy]Onset: 01-14-2024 Resolved: 463450-14-5380KvukyenMggmryhqbop deficiencies (8 sources)Vitamin D deficiency; Translations: [Vitamin D deficiency, unspecified]13-35-5819DkljnubMswf wounds of extremities (20 sources)Injury of left leg; Translations: [Unspecified open wound, left lower leg, initial encounter]29-80-0038NahcqvnaAtkuhadlmgeqex (13 sources)Osteoarthritis of left hip joint; Translations: [Unilateral primary osteoarthritis, left hip]61-93-1400IzdzmmjEdfyo aftercare (4 sources)Other alf (current) drug therapyOnset: 12-23-2021 Resolved: 50-67-2709UtkctfuqXckmh aftercare (1 source)Follow-up status; Translations: [Encounter for follow-up examination after completed treatment for conditions other than malignant neoplasm] 59-51-3620EsrwrgfiSlfgu connective tissue disease (1 source)Repeated fallsEpisodicOther connective tissue disease (3 sources)Trochanteric bursitis; Translations: [Trochanteric bursitis, left hip]88-48-2779MgnlrnzwLaskr connective tissue disease (1 source)Trochanteric bursitis, left hip; Translations: [Enthesopathy of hip region]68-61-8995AeqxfhaeIfrba connective tissue disease (10 sources)Trochanteric bursitis of left hip; Translations: [Trochanteric bursitis, left hip]56-33-4570AnaonxnbQzwpd diseases of veins and lymphatics (20 sources)Acquired lymphedema of lower extremity; Translations: [Lymphedema, not elsewhere classified]ChronicOther diseases of veins and lymphatics (7 sources)Lymphedema, not elsewhere classifiedOnset: 05-23-2021 Resolved: 25-49-4009VhjfbnwAblqw diseases of veins and lymphatics (20 sources)Ulcer of lower extremity; Translations: [Venous insufficiency (chronic) (peripheral)]EpisodicOther diseases of veins and lymphatics (20 sources)Venous insufficiency (chronic) (peripheral); Translations: [Varicose veins of lower extremities with inflammation]Onset: 05-01-2021 Resolved: 49-75-5309MtgkgemdJzyww diseases of veins and lymphatics (15 sources)Stasis dermatitis; Translations: [Venous insufficiency (chronic) (peripheral)]62-72-1015JhxgjmzjDykgj diseases of veins and lymphatics (20 sources)Venous stasis edema of bilateral lower limbs; Translations: [Venous insufficiency (chronic) (peripheral)]EpisodicOther diseases of veins and lymphatics (1 source)Peripheral venous insufficiency; Translations: [Venous insufficiency (chronic) (peripheral)]EpisodicOther diseases of veins and lymphatics (20 sources)Disorder of vein of lower extremity; Translations: [Venous insufficiency (chronic) (peripheral)]43-49-1260GohqsuwlXbfsi gastrointestinal disorders (7 sources)Irritable bowel syndrome without diarrhea; Translations: [Irritable bowel syndrome]17-51-1729XleveerKiqqk gastrointestinal disorders (1 source)Diarrhea, unspecifiedEpisodicOther hematologic conditions (10 sources)Raised cardiac enzyme or marker; Translations: [Other specified abnormalities of plasma proteins]88-43-1487VslybqvnOjoyd hematologic conditions (20 sources)H/O: anemia - iron deficient; Translations: [Personal history of diseases of the blood and blood-forming organs and certain disorders involving the immune mechanism]31-38-3613WkyeqwmzIiccu hematologic conditions (1 source)Personal history of diseases of the blood and blood-forming organs and certain disorders involving the immune mechanism; Translations: [Personal history of diseases of blood and blood-forming organs]74-46-0965JlodxcnaDeaob inflammatory condition of skin (1 source)Other pruritus; Translations: [Other specified pruritic conditions] 36-80-4697LeropucrKcybx nervous system disorders (20 sources)Chronic pain; Translations: [Other chronic pain]Onset: 01-14-2024 Resolved: 265141-11-7755DebveyzZpnep nervous system disorders (6 sources)Other chronic pain; Translations: [OTHER CHRONIC PAIN]Onset: 08-07-2021 Resolved: 25-41-1151MxbdeqxKwrjj nervous system disorders (1 source)Polyneuropathy, unspecifiedChronicOther nervous system disorders (20 sources)Pain due to neoplastic disease; Translations: [Neoplasm related pain (acute) (chronic)]57-94-5656NemumsgVglyb nervous system disorders (2 sources)Unsteadiness on feetEpisodicOther non-traumatic joint disorders (2 sources)Pain in left hipEpisodicOther non-traumatic joint disorders (14 sources)Swelling of hand; Translations: [Effusion, unspecified hand] 37-36-7867ZzuixtbzElavr non-traumatic joint disorders (1 source)Effusion, unspecified hand; Translations: [Effusion of joint, hand] 52-11-6668BnxpkcihVikca nutritional; endocrine; and metabolic disorders (20 sources)Morbid obesity; Translations: [Morbid (severe) obesity due to excess calories]39-38-6295CdgcltzMzdqa nutritional; endocrine; and metabolic disorders (20 sources)Morbid (severe) obesity due to excess calories; Translations: [Morbid obesity]64-26-0061BfxcwxhXubuh nutritional; endocrine; and metabolic disorders (20 sources)Obesity; Translations: [Obesity, unspecified]19-29-0869PvzfgtsJeeqa nutritional; endocrine; and metabolic disorders (6 sources)Severe obesity; Translations: [Class 3 severe obesity due to excess calories with serious comorbidity and body mass index (BMI) of 45.0 to 49.9 in adult ([facility])]54-78-9456OyoqhuhLylcr nutritional; endocrine; and metabolic disorders (14 sources)Obesity caused by energy imbalance; Translations: [Morbid (severe) obesity due to excess calories]81-54-1343IiooddxZcmzk nutritional; endocrine; and metabolic disorders (2 sources)Body mass index (BMI) 40.0-44.9, adult; Translations: [Body Mass Index 40.0-44.9, adult]Onset: 283856-98-1613YmqolxlJcajc screening for suspected conditions (not mental disorders or infectious disease) (20 sources)Encounter for screening mammogram for malignant neoplasm of breast; Translations: [Encounter for other screening for malignant neoplasm of breast] Onset: 02-27-2021 Resolved: 07-73-8752NnrlicmfQseye skin disorders (6 sources)Asteatosis cutis; Translations: [Xerosis cutis]68-37-8858Jyjqulse Peripheral and visceral atherosclerosis (10 sources)Peripheral vascular disease; Translations: [Peripheral vascular disease, unspecified]ChronicPneumonia (except that caused by tuberculosis or sexually transmitted disease) (7 sources)Pneumonia; Translations: [Pneumonia, unspecified organism]Onset: 204811-07-7055TitjqsqvOqzalqvg codes; unclassified (20 sources)Obstructive sleep apnea syndrome; Translations: [Obstructive sleep apnea (adult) (pediatric)]Onset: 793398-00-2442YakbzekLrmexele codes; unclassified (9 sources)Obstructive sleep apnea (adult) (pediatric); Translations: [Obstructive sleep apnea (adult)(pediatric)]Onset: 12-23-2021 Resolved: 25-26-6824QyddptdDnahzims codes; unclassified (7 sources)Localized edema; Translations: [Edema]18-52-6530JtnuravyBxfcfjdz codes; unclassified (13 sources)Inflammatory dacgvgtl26-10-3017TbcgtnfwRyifwcurkiw failure; insufficiency; arrest (adult) (20 sources)Chronic hypercapnic respiratory failure; Translations: [Chronic respiratory failure with hypercapnia]Onset: 01-14-2024 Resolved: 374088-58-7721VwyvetdMudykfd on above:4-5 L nasal cannula Unclassified (4 sources)LOW BACK PAIN, UNSPECIFIED; Translations: [LOW BACK PAIN, UNSPECIFIED]Onset: 53-34-8456Hxfqhgtzmzks (2 sources)Previously scheduled appointment.Unclassified (1 source)You have been scheduled for a follow up appointment for the following date and time, please call to reschedule if needed. Past or Other Problems Problem ClassificationProblemDateDocumented DateEpisodic/ChronicAbdominal pain (20 sources)Abdominal pain; Translations: [Unspecified abdominal pain]Onset: 01-14-2024 Resolved: 268756-14-7825OtrnzydnOgkqrkymk and vision defects (20 sources)Visual hallucinations; Translations: [Visual hallucinations]Onset: 01-14-2024 Resolved: 297753-63-5187SibumxipAbhzphh ulcer of skin (20 sources)Chronic ulcer of skin of lower leg; Translations: [Non-pressure chronic ulcer of other part of leftlower leg limited to breakdown of skin]Onset: 05-01-2021 Resolved: 39-40-1790SlorzovUtskyzkwya and other anemia (20 sources)Iron deficiency anemia; Translations: [Iron deficiency anemia, unspecified]Onset: 01-14-2024 Resolved: 217885-08-3417VcrsrgwzVrxcqbgbdy and other anemia (1 source)Deficiency and other anemiaOnset: 10-03-2021 Resolved: 57-91-7499Ortxvjpmngswy symptoms and ill-defined conditions (1 source)Hematuria, unspecifiedOnset: 12-23-2021 Resolved: 02-80-0853DznddknlVarupzc and fatigue (20 sources)Asthenia; Translations: [Other malaise]Onset: 01-14-2024 Resolved: 347249-13-0035NommerdpReopz aftercare (20 sources)Long-term current use of insulin; 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]Onset: 01-14-2024 Resolved: 553482-46-7457KxfyhculZqxca aftercare (1 source)FPC (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Onset: 04-02-2021 Resolved: 06-15-1416TtdzxaooJcfdx connective tissue disease (20 sources)Rhabdomyolysis; Translations: [Rhabdomyolysis]Onset: 01-14-2024 Resolved: 839013-36-9632NxwqzppdBensc connective tissue disease (20 sources)Recurrent falls ; Translations: [Repeated falls]Onset: 01-14-2024 Resolved: 176984-71-4198AzaqwqyrFkpto diseases of kidney and ureters (20 sources)Kidney disease; Translations: [Disorder of kidney and ureter, unspecified]Onset: 01-14-2024 Resolved: 822298-14-7873AzktngxwApeix diseases of veins and lymphatics (20 sources)Vascular insufficiency; Translations: [Venous insufficiency (chronic) (peripheral)]Onset: 01-14-2024 Resolved: 549437-08-1094ApzryagjXhzsx gastrointestinal disorders (20 sources)Irritable bowel syndrome; Translations: [Irritable bowel syndrome without diarrhea]Onset: 01-14-2024 Resolved: 391134-93-1975HqpixxlJufma gastrointestinal disorders (20 sources)Diarrhea; Translations: [Diarrhea, unspecified]Onset: 01-14-2024 Resolved: 111203-42-0252OmlltnwdRmhdw inflammatory condition of skin (20 sources)Pruritic rash; Translations: [Other pruritus]Onset: 01-14-2024 Resolved: 582991-01-1759GbgfmarxAxzxw nervous system disorders (20 sources)Metabolic encephalopathy; Translations: [Metabolic encephalopathy] Onset: 01-14-2024 Resolved: 488910-13-8247OhpcnxkYjqjy nervous system disorders (20 sources)Abnormal gait; Translations: [Unsteadiness on feet]Onset: 01-14-2024 Resolved: 032638-46-9450LibsybddIkqsn non-traumatic joint disorders (1 source)Effusion, unspecified joint; Translations: [Effusion, unspecified joint]Onset: 47-68-6374XwmbshbcUwsxd non-traumatic joint disorders (1 source)Stiffness of unspecified joint, not elsewhere classified; Translations: [Stiffness of unspecified joint, not elsewhere classified]Onset: 81-76-2707IvfvlbcpTecfq nutritional; endocrine; and metabolic disorders (20 sources)Hypomagnesemia; Translations: [Hypomagnesemia]Onset: 01-14-2024 Resolved: 406659-69-3544TyeubccNzeex nutritional; endocrine; and metabolic disorders (20 sources)Body mass index 40+ - severely obese; Translations: [Morbid (severe) obesity due to excess calories]Onset: 01-14-2024 Resolved: 539044-30-3028IjnvemfWgfek skin disorders (1 source)Localized swelling, mass and lump, lower limb, bilateralOnset: 03-04-2021 Resolved: 32-60-6069QoksmokfIoeyj skin disorders (2 sources)Generalized hyperhidrosisOnset: 05-23-2021 Resolved: 90-26-4512ZzurvzaeBlswr skin disorders (20 sources)Hemosiderin pigmentation of skin; Translations: [Other specified disorders of pigmentation]Onset: 01-14-2024 Resolved: 240896-08-1540GnihllkbGdcvzwhg codes; unclassified (1 source)Edema, unspecifiedOnset: 06-20-2021 Resolved: 58-22-9260PtyqdagbMypanlzy codes; unclassified (20 sources)Peripheral edema; Translations: [Edema, unspecified]Onset: 01-14-2024 Resolved: 355821-32-1712AqsaaniyWxqjfkyugbz; intervertebral disc disorders; other back problems (20 sources)Degeneration of lumbar intervertebral disc; Translations: [Other intervertebral disc degeneration, lumbar region]Onset: 08-22-2021 Resolved: 86-05-1766SocbqkgQyyoxxjwlaj; intervertebral disc disorders; other back problems (20 sources)Radiculopathy, lumbar region; Translations: [Sciatica]Onset: 08-22-2021 Resolved: 72-05-4232ZvnafpmyKpirbvd disorders (20 sources)Acquired hypothyroidism; Translations: [Hypothyroidism, unspecified] Onset: 04-02-2021 Resolved: 85-01-4270UbezbykOxramcc disorders (20 sources)Disorder of thyroid gland; Translations: [Disorder of thyroid, unspecified]Onset: 01-14-2024 Resolved: 635522-48-9214CkytddzgLathpiwvyfvp (2 sources)Unspecified vitamin D deficiency 268.9Onset: 05-15-2021 Resolved: 26-12-4582Czijsisoqblr (1 source)Low back pain, unspecified M54.50Onset: 08-07-2021 Resolved: 00-02-2229Etdancsmzdjn (1 source)Cough R05.9Unclassified (1 source)LOW BACK PAIN, UNSPECIFIED; Translations: [LOW BACK PAIN, UNSPECIFIED] Onset: 61-00-2625Qttjhfrsuria (20 sources)Inflammatory disorder; Translations: [Inflammation]81-33-7665Ymdpvwm tract infections (20 sources)Urinary tract infectious disease; Translations: [Urinary tract infection, site not specified]Onset: 01-14-2024 Resolved: 367720-57-4226FjuqqsmfYazrifqq veins of lower extremity (20 sources)Skin ulcer; Translations: [Varicose veins of unspecified lower extremity with ulcer of unspecified site]Onset: 07-22-2021 Resolved: 68-34-2802Opihlqxs Results Test NameValueInterpretationReference RangeFacilityCBC W Auto Differential panel (Bld)on 29-40-0553Klmgknjhi (Bld) [#/Vol]0.0 10*3/uL0.0 - 0.2 10*3/uLNOMS HealthcareBasophils/100 WBC Manual cnt (Syn fld)0.2 %.[facility] HealthcareEosinophils (Bld) [#/Vol]0.0 10*3/uL0.0 - 0.45 10*3/uLNOMS HealthcareEosinophils/100 WBC Manual cnt (Syn fld)0.2 %.[facility] HealthcareErythrocyte distribution width (RBC) [Ratio]19.1 %High11.9 - 15.3 %NOM HealthcareHematocrit (Bld) [Volume fraction] 35.1 %34.0 - 46.4 %[facility] HealthcareHemoglobin (Bld) [Mass/Vol]11.9 g/dL11.8 - 15.4 g/dLNOCT HealthcareLymphocytes (Bld) [#/Vol]2.3 10*3/uL1.00 - 4.8 10*3/uL NOM HealthcareLymphocytes/100 WBC Manual cnt (Syn fld)33.1 %.[facility] CareMCH (RBC) [Entitic mass]31.7 pg24.7 - 34.3 pgNOThree Rivers HealthcareHC (RBC) [Mass/Vol] 33.9 g/dL32.0 - 35.0 g/dLUniversity of Missouri Health CareMCV (RBC) [Entitic vol]93.4 fL80 - 100 fLBEAVER VALLEY HOSPITAL HealthcareMonocytes (Bld) [#/Vol]0.8 10*3/uL0.0 - 0.8 10*3/uLNOCT HealthcareMonocytes+Macrophages/100 WBC Manual cnt (Syn fld)11.6 %.[facility] HealthcareNeutrophils (Bld) [#/Vol]3.8 10*3/uL1.8 - 7.7 10*3/uLNOMS Healthcare Neutrophils/100 WBC Manual cnt (Syn fld)54.9 %.[facility] HealthcareNRBC0.1 /100{WBC}0 - 0.5 /100{WBC}NOM HealthcarePlatelet mean volume (Bld) [Entitic vol]9.1 fL6.3 - 10.7 fLNOCT HealthcarePlatelets (Bld) [#/Vol]110 10*3/pKXrk848 - 450 10*3/uL [facility] HealthcareRBC LM.HPF (Urine sed) [#/Area]3.76 10*6/uL3.60 - 5.00 10*6/uL NOM HealthcareWBC (Bld) [#/Vol]7.0 10*3/uL3.8 - 11.6 10*3/uLNOMS HealthcareWBC LM.HPF (Urine sed) [#/Area]7.0 [CFU]/mL3.8 - 11.6 [CFU]/mLNOMS Healthcare Complete Blood Count Auto Diffon 61-28-4612Wvygseeee (Bld) [#/Vol]0.0 10*3/uL Normal0.0-0.2The [facility] Physician GroupComment on above:Result Comment: PERFORMED BY:[address] [id number] MEDICAL DIRECTORELAINE CHAUDHARY M.D.Performed By: #### CBC, CMP, LDH ####[address]#### SPE, UPE RAND, MITCH SERUM, KAPPA ####[facility] , Basophils/100 WBC (Bld)0.2 %Normal.The [facility] Physician GroupComment on above:Performed By: #### CBC, CMP, LDH ####[address]#### SPE, UPE RAND, MITCH SERUM, KAPPA ####[facility] ,Eosinophils (Bld) [#/Vol]0.0 10*3/uLNormal0.0-0.45The [facility] Physician GroupComment on above:Performed By: #### CBC, CMP, LDH ####[address]#### SPE, UPE RAND, MITCH SERUM, KAPPA ####[facility] ,Eosinophils/100 WBC (Bld)0.2 %Normal.The [facility] Physician GroupComment on above:Performed By: #### CBC, CMP, LDH ####[address]#### SPE, UPE RAND, MITCH SERUM, KAPPA ####[facility] , Erythrocyte distribution width (RBC) [Ratio]19.1 %High11.9-15.3The [facility] Physician GroupComment on above:Performed By: #### CBC, CMP, LDH ####[address]#### SPE, UPE RAND, MITCH SERUM, KAPPA ####[facility] ,Hematocrit (Bld) [Volume fraction] 35.1 %Sfvjcl44.0-46.4The [facility] Physician GroupComment on above:Performed By: #### CBC, CMP, LDH ####[address]#### SPE, UPE RAND, MITCH SERUM, KAPPA ####[facility] , Hemoglobin (Bld) [Mass/Vol]11.9 g/kIEqbvnf10.8-15.4The [facility] Comment on above:Performed By: #### CBC, CMP, LDH ####[address]#### SPE, UPE RAND, MITCH SERUM, KAPPA ####[facility] ,Lymphocytes (Bld) [#/Vol]2.3 10*3/uLNormal1.00-4.8The [facility] Physician GroupComment on above:Performed By: #### CBC, CMP, LDH ####[place] [address] [place]#### SPE, UPE RAND, MITCH SERUM, KAPPA ####[facility] ,Lymphocytes/100 WBC (Bld)33.1 %Normal.The [facility] Physician GroupComment on above:Performed By: #### CBC, CMP, LDH ####[place] [address] [place]#### SPE, UPE RAND, MITCH SERUM, KAPPA ####[facility] ,MCH (RBC) [Entitic mass]31.7 juWdxjcd02.7-34.3The [facility] Physician GroupComment on above:Performed By: #### CBC, CMP, LDH ####[address]#### SPE, UPE RAND, MITCH SERUM, KAPPA ####[facility] ,MCV (RBC) [Entitic vol]93.4 iRKfkqxt56-496Pat [facility] Physician GroupComment on above:Performed By: #### CBC, CMP, LDH ####[address]#### SPE, UPE RAND, MITCH SERUM, KAPPA ####[facility] ,Mean Corpuscular HGB Conc33.9 g/cXDhmnrh44.0-35.0The [facility] Physician GroupComment on above: Performed By: #### CBC, CMP, LDH ####[address]#### SPE, UPE RAND, MITCH SERUM, KAPPA ####[facility] ,Monocytes (Bld) [#/Vol]0.8 10*3/uLNormal0.0-0.8The [facility] Physician GroupComment on above:Performed By: #### CBC, CMP, LDH ####[address]#### SPE, UPE RAND, MITCH SERUM, KAPPA ####[facility] ,Monocytes/100 WBC (Bld)11.6 %Normal. The [facility] Physician GroupComment on above:Performed By: #### CBC, CMP, LDH ####[place] [address] [place]#### SPE, UPE RAND, MITCH SERUM, KAPPA ####[facility] ,Neutrophils (Bld) [#/Vol]3.8 10*3/uLNormal1.8-7.7The [facility] Physician GroupComment on above: Performed By: #### CBC, CMP, LDH ####[address]#### SPE, UPE RAND, MITCH SERUM, KAPPA ####[facility] ,Neutrophils/100 WBC (Bld)54.9 %Normal.The [facility] Physician GroupComment on above:Performed By: #### CBC, CMP, LDH ####[address]#### SPE, UPE RAND, MITCH SERUM, KAPPA ####[facility] ,NRBC%0.1 /100{WBC}Normal0-0.5The [facility] Physician GroupComment on above:Performed By: #### CBC, CMP, LDH ####[address]#### SPE, UPE RAND, MITCH SERUM, KAPPA ####[facility] ,Platelet mean volume (Bld) [Entitic vol]9.1 fLNormal6.3-10.7The [facility] Physician GroupComment on above:Performed By: #### CBC, CMP, LDH ####[address]#### SPE, UPE RAND, MITCH SERUM, KAPPA ####[facility] ,Platelets (Bld) [#/Vol]110 10*3/aRGxh200-082Hpe [facility] Physician GroupComment on above:Performed By: #### CBC, CMP, LDH ####[address]#### SPE, UPE RAND, MITCH SERUM, KAPPA ####[facility] ,RBC (Bld) [#/Vol]3.76 10*6/uLNormal 3.60-5.00The [facility] Physician GroupComment on above:Performed By: #### CBC, CMP, LDH ####[place] [address] [place]#### SPE, UPE RAND, MITCH SERUM, KAPPA ####[facility] ,WBC (Bld) [#/Vol]7.0 10*3/uLNormal3.8-11.6The [facility] Physician GroupComment on above: Performed By: #### CBC, CMP, LDH ####[address]#### SPE, UPE RAND, MITCH SERUM, KAPPA ####[facility] ,White Blood Count7.0 [CFU]/mLNormal3.8-11.6The [facility] Physician GroupComment on above:Performed By: #### CBC, CMP, LDH ####[address]#### SPE, UPE RAND, MITCH SERUM, KAPPA ####[facility] ,Comprehensive Metabolic Panelon 02-06-2025 Albumin [Mass/Vol]3.8 g/dLNormal3.5-5.7NOMS HealthcareComment on above:Performed By: #### CBC, CMP, LDH ####[address]#### SPE, UPE RAND, MITCH SERUM, KAPPA ####[facility] ,Albumin/Globulin [Mass ratio]1.6 {ratio}NormalNOMS Healthcare Comment on above:Performed By: #### CBC, CMP, LDH ####[address]#### SPE, UPE RAND, MITCH SERUM, KAPPA ####[facility] ,ALP [Catalytic activity/Vol]169 U/NBess52-381YWII HealthcareComment on above:Performed By: #### CBC, CMP, LDH ####[place] [address] [place]#### SPE, UPE RAND, MITCH SERUM, KAPPA ####[facility] ,ALT [Catalytic activity/Vol]33 U/L Normal7-52NOMS HealthcareComment on above:Performed By: #### CBC, CMP, LDH ####[address]#### SPE, UPE RAND, MITCH SERUM, KAPPA ####[facility] ,Anion gap [Moles/Vol] 13.0 mmol/LNormal6.0-15.0NOMS HealthcareComment on above:Performed By: #### CBC, CMP, LDH ####[address]#### SPE, UPE RAND, MITCH SERUM, KAPPA ####[facility] ,AST [Catalytic activity/Vol]24 U/LByvqgl94-88XFVL HealthcareComment on above:Performed By: #### CBC, CMP, LDH ####[address]#### SPE, UPE RAND, MITCH SERUM, KAPPA ####[facility] , Bilirubin [Mass/Vol]0.3 mg/dLNormal0.3-1.0NOMS HealthcareComment on above: Performed By: #### CBC, CMP, LDH ####[address]#### SPE, UPE RAND, MITCH SERUM, KAPPA ####[facility] ,Calcium [Mass/Vol]8.3 mg/dLLow8.6-10.3NOMS HealthcareComment on above:Performed By: #### CBC, CMP, LDH ####[place] [address] [place]#### SPE, UPE RAND, MITCH SERUM, KAPPA ####[facility] ,Chloride [Moles/Vol]99 mmol/HRidyqo73-829LYWK HealthcareComment on above:Performed By: #### CBC, CMP, LDH ####[place] [address] [place]#### SPE, UPE RAND, MITCH SERUM, KAPPA ####[facility] ,CO2 [Moles/Vol]30.0 mmol/LNormal 21.0-31.0NOMS HealthcareComment on above:Performed By: #### CBC, CMP, LDH ####[address]#### SPE, UPE RAND, MITCH SERUM, KAPPA ####[facility] ,Creatinine [Mass/Vol] 1.21 mg/dLHigh0.60-1.20The [facility] Physician GroupComment on above:Performed By: #### CBC, CMP, LDH ####[place] [address] [place]#### SPE, UPE RAND, MITCH SERUM, KAPPA ####[facility] ,CREATININE CLR CALC BNSJRYBL98.13NormalNOMS HealthcareComment on above:Performed By: #### CBC, CMP, LDH ####[place] [address] [place]#### SPE, UPE RAND, MITCH SERUM, KAPPA ####[facility] ,GFR/1.73 sq M.predicted MDRD (S/P/Bld) [Vol rate/Area] 49.429 mL/min/{1.73_m2}NormalNOMS HealthcareComment on above:Performed By: #### CBC, CMP, LDH ####[place] [address] [place]#### SPE, UPE RAND, MITCH SERUM, KAPPA ####[facility] ,Globulin (S) [Mass/Vol]2.4 g/dLNormalNOMS HealthcareComment on above:Performed By: #### CBC, CMP, LDH ####[place] [address] [place]#### SPE, UPE RAND, MITCH SERUM, KAPPA ####[facility] ,Glucose [Mass/Vol]485 mg/nCXghf30-004ZNVK HealthcareComment on above:Random Glucose Reference Range is dependent on time and content of last meal. Glucose of more than 200 mg/dL in a nonstressed, ambulatory subject supports the diagnosis of Diabetes Mellitus. ADA recommended reference range Result Comment: Random Glucose Reference Range is dependent on time and content of last meal. Glucose of more than 200 mg/dL in a nonstressed, ambulatory subject supports the diagnosis of Diabetes Mellitus. ADA recommended reference rangePerformed By: #### CBC, CMP, LDH ####[address]#### SPE, UPE RAND, MITCH SERUM, KAPPA ####[facility] ,Potassium [Moles/Vol]4.0 mmol/LNormal3.5-5.1NOMS HealthcareComment on above:Performed By: #### CBC, CMP, LDH ####[address]#### SPE, UPE RAND, MITCH SERUM, KAPPA ####[facility] ,Protein [Mass/Vol]6.2 g/dLLow6.4-8.9 NOMS HealthcareComment on above:Performed By: #### CBC, CMP, LDH ####[place] [address] [place]#### SPE, UPE RAND, MITCH SERUM, KAPPA ####[facility] ,Sodium [Moles/Vol]138 mmol/LNormal 136-145NOMS HealthcareComment on above:Performed By: #### CBC, CMP, LDH ####[place] [address] [place]#### SPE, UPE RAND, MITCH SERUM, KAPPA ####[facility] ,Urea nitrogen [Mass/Vol]18 mg/dLNormal7-25NOMS HealthcareComment on above:Performed By: #### CBC, CMP, LDH ####[place] [address] [place]#### SPE, UPE RAND, MITCH SERUM, KAPPA ####[facility] , Comprehensive metabolic panelon 55-40-5055Hhrhrybpxx (U) [Mass/Vol]1.21 mg/dL High0.60 - 1.20 mg/dLNOMS HealthcareFree K+L LT Chains, Qn, Son 64-49-5735Pdru [place] Light Chains, S36.1 mg/LNormal3.3-19.4The [facility] Physician GroupComment on above:Performed By: #### CBC, CMP, LDH ####[address]#### SPE, UPE RAND, MITCH SERUM, KAPPA ####[facility] ,Free Lambda Light Chains, S16.2 mg/LNormal5.7-26.3The [facility] Physician GroupComment on above:Performed By: #### CBC, CMP, LDH ####[address]#### SPE, UPE RAND, MITCH SERUM, KAPPA ####[facility] ,[place]/Lambda Ratio, S 2.36Kefrny1.26-1.65The [facility] Physician GroupComment on above:Result Comment: Performed at: [facility] [address] [id number] [employer]porary Help Agency Referral Clerk: Jhoan Rich PhD, Phone: [phone] BY:[address] [id number] MEDICAL DIRECTORELAINE CHAUDHARY M.D.Performed By: #### CBC, CMP, LDH ####[address]#### SPE, UPE RAND, MITCH SERUM, KAPPA ####[facility] ,Immunofixation,Serumon [id number], SerumCommentCritically abnormal.The [facility] Physician GroupComment on above:Result Comment: 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 PLEASE NOTE: Samples from patients receiving DARZALEX(R) (daratumumab) or SARCLISA(R)(isatuximab-irfc) t reatment can appear as an IgG kappa and mask a complete response (CR). If this patient is receiving these therapies, this MITCH assay interference can be removed by ordering test number [id number]- Immunofixation, Daratumumab-Specific, Serum or [id number]- Immunofixation, Isatuximab-Specific, Serum and submitting a new sample for testing or by calling the lab to add this test to the current sample.Performed By: #### CBC, CMP, LDH ####[place] [address] [place]#### SPE, UPE RAND, MITCH SERUM, KAPPA ####[facility] ,Immunoglobulin A, Sqaik697 mg/xFOclwvr91-965Dom [facility] Physician GroupComment on above:Performed By: #### CBC, CMP, LDH ####[place] [address] [place]#### SPE, UPE RAND, MITCH SERUM, KAPPA ####[facility] ,Immunoglobulin G780 mg/jIKwyrur395-0894Aig [facility] Physician GroupComment on above:Performed By: #### CBC, CMP, LDH ####[place] [address] [place]#### SPE, UPE RAND, MITCH SERUM, KAPPA ####[facility] , Immunoglobulin M, Serum33 mg/yOWivcly88-872Osk [facility] Physician GroupComment on above:Result Comment: Performed at: [facility] [address] [id number] [employer] Referral Clerk: Jhoan Rich PhD, Phone: [phone] Performed By: #### CBC, CMP, LDH ####[place] [address] [place]#### SPE, UPE RAND, MITCH SERUM, KAPPA ####[facility] ,LDH Lactate Dehydrogenaseon 38-07-3990GND LACTATE QJAXPUKXQRLLV396 U/RTlbulo737-110TMPL HealthcareComment on above:Result Comment: PERFORMED BY:[address] [place], [place] [phone] MEDICAL DIRECTORELAINE CHAUDHARY M.D.Performed By: #### CBC, CMP, LDH ####[address]#### SPE, UPE RAND, MITCH SERUM, KAPPA ####[facility] ,No Panel Informationon [id number] and review of laboratory resultsAbnormal [facility] HospitalProtein Electro, Random Urineon 02-40-5320Nfpepkf, Urine30.9 %Normal.The [facility] Physician GroupComment on above:Performed By: #### CBC, CMP, LDH ####[address]#### SPE, UPE RAND, MITCH SERUM, KAPPA ####[facility] , Tjrld-4-Tushvjjl, Urine2.8 %Normal.The [facility] Physician GroupComment on above:Performed By: #### CBC, CMP, LDH ####[address]#### SPE, UPE RAND, MITCH SERUM, KAPPA ####[facility] ,Tfxcy-1-Oahtwxzr, Urine11.3 %Normal.The [facility] Physician GroupComment on above:Performed By: #### CBC, CMP, LDH ####[address]#### SPE, UPE RAND, MITCH SERUM, KAPPA ####[facility] ,Beta Globulin, Urine33.8 %Normal.The [facility] Physician GroupComment on above:Performed By: #### CBC, CMP, LDH ####[address]#### SPE, UPE RAND, MITCH SERUM, KAPPA ####[facility] ,Gamma Globulin, Urine 21.1 %Normal.The [facility] Physician GroupComment on above:Performed By: #### CBC, CMP, LDH ####[address]#### SPE, UPE RAND, MITCH SERUM, KAPPA ####[facility] ,M-Damien %Not ObservedNormalNot ObservedThe [facility] Physician GroupComment on above: Performed By: #### CBC, CMP, LDH ####[address]#### SPE, UPE RAND, MITCH SERUM, KAPPA ####[facility] ,Please Note:CommentNormal.The [facility] Physician GroupComment on above:Result Comment: Protein electrophoresis scan will follow via computer, mail, or green building engineer delivery. Performed at: [address] [id number] [employer]porary Help [employer] Referral Clerk: Jhoan Rich PhD, Phone: [phone] BY:[address] [phone] MEDICAL DIRECTORELAINE CHAUDHARY M.D.Performed By: #### CBC, CMP, LDH ####[address]#### SPE, UPE RAND, MITCH SERUM, KAPPA ####[facility] ,Protein (U) [Mass/Vol]9.9 mg/dLNormalNot Estab.The [facility] Physician GroupComment on above:Performed By: #### CBC, CMP, LDH ####[address]#### SPE, UPE RAND, MITCH SERUM, KAPPA ####[facility] ,Protein Electrophoresis, Serumon [id number] [Mass/Vol]3.1 g/dLNormal2.9-4.4The [facility] Comment on above:Performed By: #### CBC, CMP, LDH ####[address]#### SPE, UPE RAND, MITCH SERUM, KAPPA ####[facility] ,Albumin/Globulin [Mass ratio]1.1 {ratio}Normal0.7-1.7 The [facility] Physician GroupComment on above:Performed By: #### CBC, CMP, LDH ####[address]#### SPE, UPE RAND, MITCH SERUM, KAPPA ####[facility] ,Qbgqz-5-Cjahscwy1.2 g/dLNormal0.0-0.4The [facility] Physician GroupComment on above:Performed By: #### CBC, CMP, LDH ####[address]#### SPE, UPE RAND, MITCH SERUM, KAPPA ####[facility] , Fbeee-6-Rxmpgvam0.9 g/dLNormal0.4-1.0The [facility] Physician GroupComment on above:Performed By: #### CBC, CMP, LDH ####[address]#### SPE, UPE RAND, MITCH SERUM, KAPPA ####[facility] ,Beta Globulin1.1 g/dLNormal0.7-1.3The [facility] Physician GroupComment on above:Performed By: #### CBC, CMP, LDH ####[address]#### SPE, UPE RAND, MITCH SERUM, KAPPA ####[facility] ,Gamma Globulin0.7 g/dLNormal0.4-1.8 The [facility] Physician GroupComment on above:Performed By: #### CBC, CMP, LDH ####[address]#### SPE, UPE RAND, MITCH SERUM, KAPPA ####[facility] ,Globulin (S) [Mass/Vol]2.9 g/dLNormal2.2-3.9The [facility] Physician GroupComment on above: Performed By: #### CBC, CMP, LDH ####[address]#### SPE, UPE RAND, MITCH SERUM, KAPPA ####[facility] ,M-SpikeComment:NormalNot ObservedThe [facility] Comment on above:Result Comment: SPE shows asymmetrical gamma. Suggest serum MITCH and free light chain analysis for further evaluation.Performed By: #### CBC, CMP, LDH ####[address]#### SPE, UPE RAND, MITCH SERUM, KAPPA ####[facility] ,Protein [Mass/Vol]6.0 g/dLNormal6.0-8.5The [facility] Physician GroupComment on above: Performed By: #### CBC, CMP, LDH ####[address]#### SPE, UPE RAND, MITCH SERUM, KAPPA ####[facility] ,SPE-NoteCommentNormal.The [facility] Physician GroupComment on above:Result Comment: Protein electrophoresis scan will follow via computer, mail, or green building engineer delivery. Performed at: [address] [id number] [employer]porary [employer] Referral Clerk: Jhoan Rich PhD, Phone: [phone] Performed By: #### CBC, CMP, LDH ####[address]#### SPE, UPE RAND, MITCH SERUM, KAPPA ####[facility] ,Comprehensive Metabolic Panelon [id number] [Mass/Vol]3.4 g/dLLow3.5-5.7The [facility] Physician GroupComment on above:Performed By: #### SCAN CBC, CMP ####[address] [place] [address] USAAlbumin/Globulin [Mass ratio]1.4 {ratio}NormalThe [facility] Physician GroupComment on above:Performed By: #### SCAN CBC, CMP ####[address] [address] USAALP [Catalytic activity/Vol] 168 U/NYxnr12-545Nsp [facility] Physician GroupComment on above:Performed By: #### SCAN CBC, CMP ####[address] [address] USAALT [Catalytic activity/Vol]46 U/LNormal7-52The [facility] Physician GroupComment on above:Performed By: #### SCAN CBC, CMP ####[address] [address] USAAnion gap [Moles/Vol]11.2 mmol/LNormal6.0-15.0The [facility] Physician GroupComment on above:Performed By: #### SCAN CBC, CMP ####[address] [address] USAAST [Catalytic activity/Vol]38 U/NUylpsz70-90Wlz [facility] Physician GroupComment on above:Performed By: #### SCAN CBC, CMP ####[address] [address] USABilirubin [Mass/Vol]0.4 mg/dL Normal0.3-1.0The [facility] Physician GroupComment on above:Performed By: #### SCAN CBC, CMP ####[address] [address] USACalcium [Mass/Vol]8.3 mg/dLLow8.6-10.3The [facility] Comment on above:Performed By: #### SCAN CBC, CMP ####[address] [address] USAChloride [Moles/Vol]102 mmol/LNormal 98-107The [facility] Physician GroupComment on above:Performed By: #### SCAN CBC, CMP ####[address] [address] [place] CO2 [Moles/Vol]30.3 mmol/OXywvyf30.0-31.0The [facility] Physician GroupComment on above:Performed By: #### SCAN CBC, CMP ####[place] [address] USACreatinine [Mass/Vol]1.33 mg/dLHigh0.60-1.20 The [facility] Physician GroupComment on above:Performed By: #### SCAN CBC, CMP ####[place] [address] [place] Creatinine Clr Calc Uhbrgpog86.53NoUNC Hospitals Hills[facility] Physician H. C. Watkins Memorial HospitalComment on above:Result Comment: PERFORMED BY:[address] [place], [place] [phone] MEDICAL LEESA CHAUDHARY M.D.Performed By: #### SCAN CBC, CMP ####[place] [address] USAGFR/1.73 sq M.predicted MDRD (S/P/Bld) [Vol rate/Area]44.127 mL/min/{1.73_m2}NormalThe [facility] Physician [facility] HospitalComment on above:Performed By: #### SCAN CBC, CMP ####[place] [address] USAGlobulin (S) [Mass/Vol]2.5 g/dLJohns Hopkins All Children's Hospital Physician [facility] Watkins Memorial HospitalComment on above:Performed By: #### SCAN CBC, CMP ####[place] [address] USAGlucose [Mass/Vol]377 mg/rULsqr64-344Szz [facility] Physician GroupComment on above: Result Comment: Random Glucose Reference Range is dependent on time and content of last meal. Glucose of more than 200 mg/dL in a nonstressed, ambulatory subject supports the diagnosis of Diabetes Mellitus. ADA recommended reference rangePerformed By: #### SCAN CBC, CMP ####[place] [address] USAPotassium [Moles/Vol]3.5 mmol/LNormal3.5-5.1 The [facility] Physician GroupComment on above:Performed By: #### SCAN CBC, CMP ####[facility] [address] [place] [address] USAProtein [Mass/Vol]5.9 g/dLLow6.4-8.9The [facility] Physician [facility] Memorial HospitalComment on above: Performed By: #### SCAN CBC, CMP ####[facility] [address] [place] [address] USASodium [Moles/Vol]140 mmol/SXyrtho369-179Nxx [facility] Physician GroupComment on above:Performed By: #### SCAN CBC, CMP ####[facility] [address] [place] [address] USAUrea nitrogen [Mass/Vol]32 mg/dLHigh7-25The [facility] Physician GroupComment on above:Performed By: #### SCAN CBC, CMP ####[facility] [address] [place] [address] USAComprehensive metabolic panelon 01-17-2025 Albumin [Mass/Vol]3.4 g/dLLow3.5 - 5.7 g/dLNOMS HealthcareAlbumin/Globulin [Mass ratio]1.4 {ratio}NOMS HealthcareALP [Catalytic activity/Vol]168 U/LHigh34 - 104 U/LNOMS HealthcareALT [Catalytic activity/Vol]46 U/L7 - 52 U/LNOMS Healthcare Anion gap [Moles/Vol]11.2 mmol/L6.0 - 15.0NOMS HealthcareAST [Catalytic activity/Vol]38 U/L13 - 39 U/LNOMS HealthcareBilirubin [Mass/Vol]0.4 mg/dL0.3 - 1.0 mg/dLNOMS HealthcareCalcium [Mass/Vol]8.3 mg/dLLow8.6 - 10.3 mg/dLNOMS HealthcareChloride [Moles/Vol]102 mmol/L98 - 107 mmol/LNOMS HealthcareCO2 [Moles/Vol]30.3 mmol/L21.0 - 31.0 mmol/LNOMS HealthcareCreatinine (U) [Mass/Vol] 1.33 mg/dLHigh0.60 - 1.20 mg/dLNOMS HealthcareCREATININE CLR CALC MUXKPZHK29.53 NOMS HealthcareGFR/1.73 sq M.predicted MDRD (S/P/Bld) [Vol rate/Area]44.127 mL/min/{1.73_m2}NOMS HealthcareGlobulin (S) [Mass/Vol]2.5 g/dLNOMS Healthcare Glucose [Mass/Vol]377 mg/sKNmzx59 - 100 mg/dLNOMS HealthcareComment on above: Random Glucose Reference Range is dependent on time and content of last meal. Glucose of more than 200 mg/dL in a nonstressed, ambulatory subject supports the diagnosis of Diabetes Mellitus. ADA recommended reference range Interpretation and review of laboratory resultsAbnormalNOMS HealthcarePotassium [Moles/Vol]3.5 mmol/L3.5 - 5.1 mmol/LNOMS HealthcareProtein [Mass/Vol]5.9 g/dL Low6.4 - 8.9 g/dLNOMS HealthcareSodium [Moles/Vol]140 mmol/L136 - 145 mmol/LNOMS HealthcareUrea nitrogen [Mass/Vol]32 mg/dLHigh7 - 25 mg/dLNOMS HealthcareNOCT HealthcareFree K+L LT Chains, Qn, Son 83-77-9957Lroj [place] Light Chains, S32.7 mg/LNormal3.3-19.4The [facility] Physician GroupComment on above:Performed By: #### SPE, KAPPA, IMM WILLIAM ####[facility] ,Free Lambda Light Chains, S 17.0 mg/LNormal5.7-26.3The [facility] Physician GroupComment on above:Performed By: #### SPE, KAPPA, IMM WILLIAM ####[facility] ,[place]/Lambda Ratio, S1.92 Normal0.26-1.65The [facility] Physician GroupComment on above:Result Comment: Performed at: - [facility] [address] [id number] [employer]porary [employer] Referral Clerk: Jhoan Rich PhD, Phone: [phone] BY:[address] [phone] MEDICAL DIRECTORELAINE CHAUDHARY M.D.Performed By: #### SPE, KAPPA, IMM WILLIAM ####[facility] ,Immunoglobulins A/G/M, Qn, Seron 01-17-2025 Immunoglobulin A, Akqcn897 mg/lXDtorlv93-095Plm [facility] Physician GroupComment on above:Performed By: #### SPE, KAPPA, IMM WILLIAM ####[facility] , Immunoglobulin G1184 mg/nRAlmnxm977-7850Zxa [facility] Physician GroupComment on above:Performed By: #### SPE, KAPPA, IMM WILLIAM ####[facility] , Immunoglobulin M, Serum37 mg/eOWlhrar80-120Mbl [facility] Physician GroupComment on above:Result Comment: Performed at: [address] [id number] [employer] Referral Clerk: Jhoan Rich PhD, Phone: [phone] Performed By: #### SPE, KAPPA, IMM WILLIAM ####[facility] ,Protein Electrophoresis, Serumon 74-32-1315Plprbja [Mass/Vol]3.0 g/dLNormal2.9-4.4The [facility] Physician GroupComment on above:Performed By: #### SPE, KAPPA, IMM WILLIAM ####[facility] ,Albumin/Globulin [Mass ratio]1.1 {ratio}Normal0.7-1.7 The [facility] Physician GroupComment on above:Performed By: #### SPE, KAPPA, IMM WILLIAM ####[facility] ,Xjhau-5-Eiiuqyvp6.2 g/dLNormal0.0-0.4The [facility] Physician GroupComment on above:Performed By: #### SPE, KAPPA, IMM WILLIAM ####[facility] ,Bvatf-5-Vfayvuqa0.7 g/dLNormal0.4-1.0The [facility] Physician GroupComment on above:Performed By: #### SPE, KAPPA, IMM WILLIAM ####[facility] ,Beta Globulin0.8 g/dLNormal0.7-1.3The [facility] Physician GroupComment on above:Performed By: #### SPE, KAPPA, IMM WILLIAM ####[facility] ,Gamma Globulin1.0 g/dLNormal0.4-1.8The [facility] Physician GroupComment on above:Performed By: #### SPE, KAPPA, IMM WILLIAM ####[facility] ,Globulin (S) [Mass/Vol]2.8 g/dLNormal2.2-3.9The [facility] Physician GroupComment on above:Performed By: #### SPE, KAPPA, IMM WILLIAM ####[facility] ,M-SpikeComment:NormalNot ObservedThe [facility] Physician GroupComment on above:Result Comment: SPE shows asymmetrical gamma. Suggest serum MITCH and free light chain analysis for further evaluation.Performed By: #### SPE, KAPPA, IMM WILLIAM ####[facility] ,Protein [Mass/Vol]5.8 g/dLNormal6.0-8.5The [facility] Physician GroupComment on above:Performed By: #### SPE, KAPPA, IMM WILLIAM ####[facility] ,SPE-NoteCommentNormal.The [facility] Physician GroupComment on above:Result Comment: Protein electrophoresis scan will follow via computer, mail, or green building engineer delivery. Pe rformed at: [address] [id number] [employer]porary [employer] Agency Referral Clerk: Jhoan Rich PhD, Phone: [phone] By: #### SPE, KAPPA, IMM WILLIAM ####[facility] ,Scan and CBCon 04-34-9154Xsqagcmwcfcz Ql (Bld)MarkedNormalThe [facility] Physician GroupComment on above:Performed By: #### SCAN CBC, CMP ####[facility] [address] [place] [address] USABasophils (Bld) [#/Vol]0.0 10*3/uLNormal0.0-0.2The [facility] Physician GroupComment on above:Performed By: #### SCAN CBC, CMP ####[address] [address] USABasophils/100 WBC (Bld)0.0 %Normal.The [facility] Physician GroupComment on above:Performed By: #### SCAN CBC, CMP ####[place] [address] USAEosinophils (Bld) [#/Vol]0.0 10*3/uLNormal0.0-0.45The [facility] Physician GroupComment on above:Performed By: #### SCAN CBC, CMP ####[id number] USAEosinophils/100 WBC (Bld)0.9 %Normal.The [facility] Physician GroupComment on above:Performed By: #### SCAN CBC, CMP ####[place] [address] USAErythrocyte distribution width (RBC) [Ratio]23.3 %High11.9-15.3The [facility] Physician GroupComment on above:Performed By: #### SCAN CBC, CMP ####[place] [id number] [place] Hematocrit (Bld) [Volume fraction]28.8 %Low34.0-46.4The [facility] Physician GroupComment on above:Performed By: #### SCAN CBC, CMP ####[place] [address] USAHemoglobin (Bld) [Mass/Vol]9.6 g/dLLow11.8-15.4The [facility] Physician GroupComment on above:Performed By: #### SCAN CBC, CMP ####[place] [id number] USALymphocytes (Bld) [#/Vol]2.0 10*3/uLNormal1.00-4.8The [facility] Physician GroupComment on above:Performed By: #### SCAN CBC, CMP ####[place] [address] USALymphocytes/100 WBC (Bld)57.0 %Normal.The [facility] Physician GroupComment on above:Performed By: #### SCAN CBC, CMP ####[address] (RBC) [Entitic mass]31.0 fvDlopou91.7-34.3The [facility] Physician GroupComment on above:Performed By: #### SCAN CBC, CMP ####[address]V (RBC) [Entitic vol]92.8 eJGjrafp32-418Bsv [facility] Physician GroupComment on above:Performed By: #### SCAN CBC, CMP ####[address] Corpuscular HGB Conc33.4 g/uGAsmlgd11.0-35.0The [facility] Physician GroupComment on above:Performed By: #### SCAN CBC, CMP ####[address] Monocytes (Bld) [#/Vol]0.3 10*3/uLNormal0.0-0.8The [facility] Comment on above:Performed By: #### SCAN CBC, CMP ####[place] [address] USAMonocytes/100 WBC (Bld)9.0 %Normal. The [facility] Physician GroupComment on above:Performed By: #### SCAN CBC, CMP ####[address] Neutrophils (Bld) [#/Vol]1.1 10*3/uLLow1.8-7.7The [facility] Comment on above:Performed By: #### SCAN CBC, CMP ####[place] [address] USANeutrophils/100 WBC (Bld)33.1 %Normal .The [facility] Physician GroupComment on above:Performed By: #### SCAN CBC, CMP ####[place] [address] USANRBC% 0.1 /100{WBC}Normal0-0.5The [facility] Physician GroupComment on above:Performed By: #### SCAN CBC, CMP ####[address] [address] USAOvalocytesSlightNoUNC Hospitals Hills[facility] Physician Group Comment on above:Performed By: #### SCAN CBC, CMP ####[address] [address] USAPlatelet EstimateDecreasedNormal NormalThe [facility] Physician GroupComment on above:Performed By: #### SCAN CBC, CMP ####[address] [address] [place] Platelet mean volume (Bld) [Entitic vol]8.7 fLNormal6.3-10.7The [facility] Physician GroupComment on above:Performed By: #### SCAN CBC, CMP ####[address] [address] USAPlatelet Morphology NormalNormalJohns Hopkins All Children's Hospital Physician GroupComment on above:Result Comment: PERFORMED BY:[address] [place], [place] [phone] MEDICAL DIRECTORELAINE CHAUDHARY M.D.Performed By: #### SCAN CBC, CMP ####[address] [address] USAPlatelets (Bld) [#/Vol]58 10*3/iTNaq679-334Ysp [facility] Physician GroupComment on above:Performed By: #### SCAN CBC, CMP ####[address] [address] USAPoikilocytosisModerateNormal The [facility] Physician GroupComment on above:Performed By: #### SCAN CBC, CMP ####[address] [address] [place] PolychromasiaSlightNoUNC Hospitals Hillsborough Campus Physician GroupComment on above:Performed By: #### SCAN CBC, CMP ####[address] [address] USARBC (Bld) [#/Vol]3.10 10*6/uLLow3.60-5.00The [facility] Physician GroupComment on above:Performed By: #### SCAN CBC, CMP ####[address] [address] USATear Drop CellsSlightNormalThe [facility] Physician GroupComment on above:Performed By: #### SCAN CBC, CMP ####[place] [address] USAWBC (Bld) [#/Vol]3.4 10*3/uLLow3.8-11.6The [facility] Physician GroupComment on above:Performed By: #### SCAN CBC, CMP ####[place] [address] USAWhite Blood Count3.4 [CFU]/mLLow3.8-11.6The [facility] Physician GroupComment on above:Performed By: #### SCAN CBC, CMP ####[place] [id number] USABasic Metabolic Panelon 55-31-6987Pused gap [Moles/Vol]8.1 mmol/L Normal6.0-15.0The [facility] Physician GroupComment on above:Performed By: #### DIFF CBC, BMP ####[place] [address] USACalcium [Mass/Vol]6.9 mg/dLLow8.6-10.3The [facility] Comment on above:Performed By: #### DIFF CBC, BMP ####[place] [address] USAChloride [Moles/Vol]105 mmol/LNormal 98-107The [facility] Physician GroupComment on above:Performed By: #### DIFF CBC, BMP ####[place] [address] [place] CO2 [Moles/Vol]31.1 mmol/LHigh21.0-31.0The [facility] Physician GroupComment on above:Performed By: #### DIFF CBC, BMP ####[address] [place] [address] USACreatinine [Mass/Vol]0.86 mg/dLNormal0.60-1.20 The [facility] Physician GroupComment on above:Performed By: #### DIFF CBC, BMP ####[address] [address] [place] Creatinine Clr Calc Zpirvpns17.74NormalThe [facility] Physician GroupComment on above:Result Comment: PERFORMED BY:[address] [place], [place] [phone] MEDICAL LEESA CHAUDHARY M.D.Performed By: #### DIFF CBC, BMP ####[place] [address] USAGFR/1.73 sq M.predicted MDRD (S/P/Bld) [Vol rate/Area]mL/min/{1.73_m2}NormalThe [facility] Physician GroupComment on above: Performed By: #### DIFF CBC, BMP ####[place] [address] USAGlucose [Mass/Vol]136 mg/uIQjod93-657Ecw [facility] Physician GroupComment on above:Result Comment: Random Glucose Reference Range is dependent on time and content of last meal. Glucose of more than 200 mg/dL in a nonstressed, ambulatory subject supports the diagnosis of Diabetes Mellitus. ADA recommended reference rangePerformed By: #### DIFF CBC, BMP ####[place] [address] USAPotassium [Moles/Vol] 3.2 mmol/LLow3.5-5.1The [facility] Physician GroupComment on above:Performed By: #### DIFF CBC, BMP ####[place] [address] USASodium [Moles/Vol]141 mmol/YMoavay599-826Myt [facility] Physician GroupComment on above:Performed By: #### DIFF CBC, BMP ####[place] [address] USAUrea nitrogen [Mass/Vol]21 mg/dLNormal7-25The [facility] Physician GroupComment on above:Performed By: #### DIFF CBC, BMP ####[address] [address] USADiff and CBCon 63-93-1291Xlqvjvwgyjuq Ql (Bld)ModerateNormalThe [facility] Physician GroupComment on above:Performed By: #### DIFF CBC, BMP ####[place] [address] [place] Eosinophils/100 WBC (Bld)4 %High1-3The [facility] Physician GroupComment on above:Performed By: #### DIFF CBC, BMP ####[place] [address] USAErythrocyte distribution width (RBC) [Ratio] 15.5 %High11.9-15.3The [facility] Physician GroupComment on above:Performed By: #### DIFF CBC, BMP ####[place] [address] USAGiant Platelet Tally2 /100{WBC}NormalThe [facility] Comment on above:Performed By: #### DIFF CBC, BMP ####[place] [address] USAHematocrit (Bld) [Volume fraction] 26.7 %Low34.0-46.4The [facility] Physician GroupComment on above:Performed By: #### DIFF CBC, BMP ####[place] [address] USAHemoglobin (Bld) [Mass/Vol]9.1 g/dLLow11.8-15.4The [facility] Physician GroupComment on above:Performed By: #### DIFF CBC, BMP ####[address] [address] USALymphocytes/100 WBC (Bld)56 %Atqp75-59Fpx [facility] Physician GroupComment on above:Performed By: #### DIFF CBC, BMP ####[place] [id number] USAMCH (RBC) [Entitic mass]29.3 ncLncous67.7-34.3The [facility] Physician GroupComment on above:Performed By: #### DIFF CBC, BMP ####[place] [id number] USAMCV (RBC) [Entitic vol]86.2 xSAlxjvg46-521Jtw [facility] Physician GroupComment on above:Performed By: #### DIFF CBC, BMP ####[place] [address] USAMean Corpuscular HGB Conc34.0 g/pJDvltua34.0-35.0The [facility] Physician GroupComment on above:Performed By: #### DIFF CBC, BMP ####[place] [address] [place] MicrocytosisModerateNoUNC Hospitals Hillsborough Campus Physician GroupComment on above: Performed By: #### DIFF CBC, BMP ####[place] [address] USAMonocytes/100 WBC (Bld)10 %Normal2-11The [facility] Physician GroupComment on above:Performed By: #### DIFF CBC, BMP ####[place] [id number] USANucleated Red Blood Cell2 /100{WBC}High0-0The [facility] Physician GroupComment on above:Performed By: #### DIFF CBC, BMP ####[place] [id number] USAPlatelet EstimateDecreasedNormalJohns Hopkins All Children's Hospital Physician GroupComment on above:Performed By: #### DIFF CBC, BMP ####[address] [address] USAPlatelet mean volume (Bld) [Entitic vol]8.5 fLNormal6.3-10.7The [facility] Physician GroupComment on above:Performed By: #### DIFF CBC, BMP ####[place] [id number] USAPlatelet MorphologyNormalNormalNormAdventHealth Ocala Physician GroupComment on above:Result Comment: PERFORMED BY:[address] [place], [place] [phone] MEDICAL DIRECTORELAINE CHAUDHARY M.D.Performed By: #### DIFF CBC, BMP ####[address] [address] [place] Platelets (Bld) [#/Vol]12 10*3/uLOff scale lsr257-450Trb [facility] Physician GroupComment on above:Result Comment: Critical value result called at 0946 on 12/31/24Performed By: #### DIFF CBC, BMP ####[address] [address] USAPolychromasiaSlightNormalThe [facility] Physician GroupComment on above:Performed By: #### DIFF CBC, BMP ####[address] [address] USARBC (Bld) [#/Vol]3.10 10*6/uLLow3.60-5.00The [facility] Physician GroupComment on above:Performed By: #### DIFF CBC, BMP ####[address] [address] USAReactive Lymphocytes7 %Normal0-12The [facility] Comment on above:Performed By: #### DIFF CBC, BMP ####[address] [address] USASegmented neutrophils/100 WBC (Bld)23 %Nna32-50Xvx [facility] Physician [facility] HospitalComment on above:Performed By: #### DIFF CBC, BMP ####[address] [address] USAWBC (Bld) [#/Vol]1.1 10*3/uLLow3.8-11.6The [facility] Physician GroupComment on above:Performed By: #### DIFF CBC, BMP ####[address] [address] USAWhite Blood Count1.1 [CFU]/mLLow3.8-11.6The [facility] Physician GroupComment on above:Performed By: #### DIFF CBC, BMP ####[address] [address] USAGlucose Poct Glucometerson 86-94-1388Ofhmkmw [Mass/Vol]121 mg/dLNormAdventHealth Ocala Physician GroupComment on above:Result Comment: Random Glucose Reference Range is dependent on time and content of last meal. Glucose of more than 200 mg/dL in a nonstressed, ambulatory subject supports the diagnosis of Diabetes Hedy litus.PERFORMED BY:[place] [address] [address] [place], [place] [phone] MEDICAL LEESA CHAUDHARY M.D.Performed By: #### GLULS ####Point of Care testing,Glucose [Mass/Vol]156 mg/dLNoUNC [facility] Physician GroupComment on above:Result Comment: Random Glucose Reference Range is dependent on time and content of last meal. Glucose of more than 200 mg/dL in a nonstressed, ambulatory subject supports the diagnosis of Diabetes Mellitus.PERFORMED BY:[address] [place], [place] [phone] MEDICAL LEESA CHAUDHARY M.D.Performed By: #### GLULS ####Point of Care testing,Basic Metabolic Panelon 33-41-8663Cozrd gap [Moles/Vol]7.7 mmol/LNormal6.0-15.0The [facility] Physician GroupComment on above:Performed By: #### DIFF CBC, BMP ####[address] [address] USACalcium [Mass/Vol]7.3 mg/dLLow 8.6-10.3The [facility] Physician GroupComment on above:Performed By: #### DIFF CBC, BMP ####[address] [address] USAChloride [Moles/Vol]104 mmol/HGjpjhy23-755Baq [facility] Group Comment on above:Performed By: #### DIFF CBC, BMP ####[address] [address] USACO2 [Moles/Vol]28.8 mmol/LNormal 21.0-31.0The [facility] Physician GroupComment on above:Performed By: #### DIFF CBC, BMP ####[facility] [place] [address] USACreatinine [Mass/Vol]0.90 mg/dLNormal0.60-1.20The [facility]ician Group Comment on above:Performed By: #### DIFF CBC, BMP ####[address] [address] USACreatinine Clr Calc Vbhhpnnf79.59 NormalThe [facility] Physician GroupComment on above:Result Comment: PERFORMED BY:[address] [place], [place] [phone] MEDICAL DIRECTORELAINE CHAUDHARY M.D.Performed By: #### DIFF CBC, BMP ####[place] [address] [place] [address] USAGFR/1.73 sq M.predicted MDRD (S/P/Bld) [Vol rate/Area]mL/min/{1.73_m2}Normal The [facility] Physician GroupComment on above:Performed By: #### DIFF CBC, BMP ####[place] [address] [place] [address] USAGlucose [Mass/Vol]235 mg/zFDbvf83-713Xic [facility] Physician GroupComment on above: Result Comment: Random Glucose Reference Range is dependent on time and content of last meal. Glucose of more than 200 mg/dL in a nonstressed, ambulatory subject supports the diagnosis of Diabetes Mellitus. ADA recommended reference rangePerformed By: #### DIFF CBC, BMP ####[place] [address] [place] [address] USAPotassium [Moles/Vol]2.5 mmol/LOff scale low 3.5-5.1The [facility] Physician GroupComment on above:Result Comment: Critical Result Called to and read back by: ISIAH BROWN at: 12/30/2024 08:47:59 by:Fina [id number] By: #### DIFF CBC, BMP ####[address] [address] USASodium [Moles/Vol]138 mmol/OPkxtyq152-456Cpf [facility] Physician [facility] HospitalComment on above:Performed By: #### DIFF CBC, BMP ####[address] [address] USAUrea nitrogen [Mass/Vol]22 mg/dLNormal7-25The [facility] Physician GroupComment on above:Performed By: #### DIFF CBC, BMP ####[address] [address] USADiff and CBCon 72-32-6459Undcoxmacmbl Ql (Bld) SlightNormalThe [facility] Physician GroupComment on above:Performed By: #### DIFF CBC, BMP ####[place] [id number] USABasophils/100 WBC (Bld)0 %Normal0-2The [facility] Veterans Affairs Medical CenterComment on above:Performed By: #### DIFF CBC, BMP ####[address] [address] USAEosinophils/100 WBC (Bld)0 %Low1-3The [facility] Physician [facility] HospitalComment on above:Performed By: #### DIFF CBC, BMP ####[place] [id number] [place] Erythrocyte distribution width (RBC) [Ratio]15.1 %Rwelew94.9-15.3The [facility] Physician [facility] HospitalComment on above:Performed By: #### DIFF CBC, BMP ####[address] [address] USAHematocrit (Bld) [Volume fraction]26.9 %Low34.0-46.4The [facility] Physician [facility] HospitalComment on above:Performed By: #### DIFF CBC, BMP ####[place] [id number] USAHemoglobin (Bld) [Mass/Vol]9.0 g/dLLow 11.8-15.4The [facility] Physician [facility] HospitalComment on above:Performed By: #### DIFF CBC, BMP ####[place] [address] USAHypochromasiaSlightJohns Hopkins All Children's Hospital Physician GroupComment on above: Performed By: #### DIFF CBC, BMP ####[place] [id number] USALymphocytes/100 WBC (Bld)41 %Omxmim89-94Eoq [facility] Physician GroupComment on above:Performed By: #### DIFF CBC, BMP ####[place] [id number] [facility] ([facility]) [Entitic mass]29.4 fjVkcapv86.7-34.3The [facility] Physician GroupComment on above:Performed By: #### DIFF CBC, BMP ####[address] StreetMCV (RBC) [Entitic vol]88.1 eUBxvmoh35-830Dby [facility] Physician GroupComment on above:Performed By: #### DIFF CBC, BMP ####[place] [address] USAMean Corpuscular HGB Conc33.3 g/kVNzxudc18.0-35.0The [facility] Physician GroupComment on above:Performed By: #### DIFF CBC, BMP ####[place] [address] USAMonocytes/100 WBC (Bld)14 %High2-11The [facility] Physician GroupComment on above:Performed By: #### DIFF CBC, BMP ####[place] [id number] [facility] Nucleated Red Blood Cell3 /100{WBC}High0-0The [facility] Physician GroupComment on above:Performed By: #### DIFF CBC, BMP ####[place] [address] USAPlatelet EstimateDecreasedNormalJohns Hopkins All Children's Hospital Physician GroupComment on above:Performed By: #### DIFF CBC, BMP ####[address] Platelet mean volume (Bld) [Entitic vol]8.4 fLNormal6.3-10.7The [facility] Physician GroupComment on above:Performed By: #### DIFF CBC, BMP ####[address] [address] USAPlatelet Morphology NormalNormalNormalThe [facility] Physician GroupComment on above:Result Comment: PERFORMED BY:[address] [place], [place] [phone] MEDICAL DIRECTORELAINE CHAUDHARY M.D.Performed By: #### DIFF CBC, BMP ####[address] [address] USAPlatelets (Bld) [#/Vol]16 10*3/uLOff scale qve213-170Dnz [facility] Physician GroupComment on above:Result Comment: Critical value result called at 0846 on 12/30/24Performed By: #### DIFF CBC, BMP ####[address] [address] USARBC (Bld) [#/Vol]3.05 10*6/uLLow 3.60-5.00The [facility] Physician GroupComment on above:Performed By: #### DIFF CBC, BMP ####[address] [address] USAReactive Lymphocytes6 %Normal0-12The [facility] Physician GroupComment on above:Performed By: #### DIFF CBC, BMP ####[address] [address] USASegmented neutrophils/100 WBC (Bld)39 %Low 50-70The [facility] Physician GroupComment on above:Performed By: #### DIFF CBC, BMP ####[address] [address] USAWBC (Bld) [#/Vol]1.0 10*3/uLLow3.8-11.6The [facility] Physician GroupComment on above:Performed By: #### DIFF CBC, BMP ####[place] [id number] USAWhite Blood Count1.0 [CFU]/mLLow3.8-11.6The [facility] Physician GroupComment on above:Performed By: #### DIFF CBC, BMP ####[address] [address] USAGlucose Poct Glucometerson 99-52-4670Zqapsir [Mass/Vol]274 mg/dLNoUNC [facility] Physician GroupComment on above:Result Comment: Random Glucose Reference Range is dependent on time and content of last meal. Glucose of more than 200 mg/dL in a nonstressed, ambulatory subject supports the diagnosis of Diabetes Hedy litus.PERFORMED BY:[address] [place], [place] [phone] MEDICAL LEESA CHAUDHARY M.D.Performed By: #### GLULS ####Point of Care testing,Glucose [Mass/Vol]307 mg/dLNoUNC [facility]als [facility] Physician GroupComment on above:Result Comment: Random Glucose Reference Range is dependent on time and content of last meal. Glucose of more than 200 mg/dL in a nonstressed, ambulatory subject supports the diagnosis of Diabetes Mellitus.PERFORMED BY:[address] [place], [place] [phone] MEDICAL LEESA CHAUDHARY M.D.Performed By: #### GLULS ####Point of Care testing,Glucose [Mass/Vol]298 mg/dLJohns Hopkins All Children's Hospital Physician GroupComment on above:Result Comment: Random Glucose Reference Range is dependent on time and content of last meal. Glucose of more than 200 mg/dL in a nonstressed, ambulatory subject supports the diagnosis of Diabetes Mellitus.PERFORMED BY:[address] [place], [place] [phone] MEDICAL LEESA CHAUDHARY M.D.Performed By: #### GLULS ####Point of Care testing, Glucose [Mass/Vol]249 mg/dLNoUNC [facility] Physician GroupComment on above: Result Comment: Random Glucose Reference Range is dependent on time and content of last meal. Glucose of more than 200 mg/dL in a nonstressed, ambulatory subject supports the diagnosis of Diabetes Mellitus.PERFORMED BY:[place] [address] [address] [place], [place] [phone] MEDICAL LEESA CHAUDHARY M.D.Performed By: #### GLULS ####Point of Care testing,Basic Metabolic Panelon 42-44-3428Ztolo gap [Moles/Vol]7.4 mmol/LNormal 6.0-15.0The [facility] Physician GroupComment on above:Performed By: #### DIFF CBC, BMP ####[address] [address] USACalcium [Mass/Vol]7.1 mg/dLLow8.6-10.3The [facility] Physician GroupComment on above:Performed By: #### DIFF CBC, BMP ####[address] [address] USAChloride [Moles/Vol]103 mmol/DKtjaea29-074Hgn [facility] Physician GroupComment on above:Performed By: #### DIFF CBC, BMP ####[address] [address] USACO2 [Moles/Vol]27.9 mmol/XKrythn29.0-31.0The [facility] Physician GroupComment on above:Performed By: #### DIFF CBC, BMP ####[address] [address] USACreatinine [Mass/Vol]1.07 mg/dLAbnormal 0.60-1.20The [facility] Physician GroupComment on above:Performed By: #### DIFF CBC, BMP ####[address] [address] USACreatinine Clr Calc Eobvkoox49.23NormalThe [facility] Physician GroupComment on above:Result Comment: PERFORMED BY:[place] [address] [address] [place], [place] [phone] ISRA CHAUDHARY M.D.Performed By: #### DIFF CBC, BMP ####[address] [address] USAGFR/1.73 sq M.predicted MDRD (S/P/Bld) [Vol rate/Area]57.288 mL/min/{1.73_m2}NormalThe [facility] Group Comment on above:Performed By: #### DIFF CBC, BMP ####[place] [address] USAGlucose [Mass/Vol]296 mg/mZCmyb95-714 The [facility] Physician GroupComment on above:Result Comment: Random Glucose Reference Range is dependent on time and content of last meal. Glucose of more than 200 mg/dL in a nonstressed, ambulatory subject supports the diagnosis of Diabetes Mellitus. ADA recommended reference rangePerformed By: #### DIFF CBC, BMP ####[place] [address] [place] Potassium [Moles/Vol]3.3 mmol/LLow3.5-5.1The [facility] Physician GroupComment on above:Performed By: #### DIFF CBC, BMP ####[place] [address] USASodium [Moles/Vol]135 mmol/BFde914-994Ceo [facility] Physician GroupComment on above:Performed By: #### DIFF CBC, BMP ####[place] [id number] USAUrea nitrogen [Mass/Vol]30 mg/dLHigh7-25The [facility] Physician GroupComment on above:Performed By: #### DIFF CBC, BMP ####[place] [address] USADiff and CBCon 39-86-9632Rqzxsicyt/100 WBC (Bld)2 %Normal0-2The [facility] Physician GroupComment on above:Performed By: #### DIFF CBC, BMP ####[place] [address] USAErythrocyte distribution width (RBC) [Ratio]15.0 %Ehitbc70.9-15.3The [facility] Physician GroupComment on above:Performed By: #### DIFF CBC, BMP ####[place] [address] USAGiant Platelet Tally2 /100{WBC}NormalThe [facility] Physician GroupComment on above: Performed By: #### DIFF CBC, BMP ####[place] [address] USAHematocrit (Bld) [Volume fraction]26.7 %Low34.0-46.4 The [facility] Physician GroupComment on above:Performed By: #### DIFF CBC, BMP ####[place] [address] [place] Hemoglobin (Bld) [Mass/Vol]9.0 g/dLLow11.8-15.4The [facility]ician Group Comment on above:Performed By: #### DIFF CBC, BMP ####[place] [address] USALymphocytes/100 WBC (Bld)41 %Normal 18-42The [facility] Physician GroupComment on above:Performed By: #### DIFF CBC, BMP ####[place] [address] USAMCH (RBC) [Entitic mass]30.1 nsQzlgqy51.7-34.3The [facility] Physician GroupComment on above:Performed By: #### DIFF CBC, BMP ####[place] [address] USAMCV (RBC) [Entitic vol]89.2 lGYnzzjw32-429Knp [facility] Physician GroupComment on above:Performed By: #### DIFF CBC, BMP ####[place] [address] USAMean Corpuscular HGB Conc33.7 g/zQHskzbr52.0-35.0The [facility] Physician GroupComment on above:Performed By: #### DIFF CBC, BMP ####[place] [address] USAMetamyelocytes1 %High0-0The [facility] Physician GroupComment on above:Performed By: #### DIFF CBC, BMP ####[place] [address] USAMonocytes/100 WBC (Bld)10 %Normal2-11The [facility] Physician GroupComment on above:Performed By: #### DIFF CBC, BMP ####[address] [address] USAMyelocytes1 %High0-0The [facility] Physician GroupComment on above: Performed By: #### DIFF CBC, BMP ####[address] [address] USAPlatelet EstimateDecreasedNormalNormOhioHealthe [facility] Physician GroupComment on above:Performed By: #### DIFF CBC, BMP ####[address] [address] USAPlatelet mean volume (Bld) [Entitic vol]9.5 fLNormal6.3-10.7The [facility] Physician [facility] HospitalComment on above:Performed By: #### DIFF CBC, BMP ####[address] [address] USAPlatelet MorphologyNormalNormalNoUNC [facility] Physician GroupComment on above:Result Comment: PERFORMED BY:[address] [place], [place] [phone] MEDICAL DIRECTORELAINE CHAUDHARY M.D.Performed By: #### DIFF CBC, BMP ####[address] [address] [place] Platelets (Bld) [#/Vol]10 10*3/uLOff scale gsp058-340Ukx [facility] Physician GroupComment on above:Result Comment: Critical value result called at 0839 on 12/29/24Performed By: #### DIFF CBC, BMP ####[address] [address] USARBC (Bld) [#/Vol]2.99 10*6/uLLow3.60-5.00The [facility] Physician GroupComment on above:Performed By: #### DIFF CBC, BMP ####[address] [address] USARBC morphology finding Nom (Bld)NormalNormalNormAdventHealth [facility]cal[facility] Physician Group Comment on above:Performed By: #### DIFF CBC, BMP ####[address] [place] [address] USASegmented neutrophils/100 WBC (Bld)46 %Gsh25-95Mco [facility] Physician GroupComment on above:Performed By: #### DIFF CBC, BMP ####[address] [address] USAWBC (Bld) [#/Vol]0.7 10*3/uLLow3.8-11.6The [facility] Physician GroupComment on above:Performed By: #### DIFF CBC, BMP ####[address] [address] USAWhite Blood Count0.7 [CFU]/mLLow3.8-11.6The [facility] Physician GroupComment on above:Performed By: #### DIFF CBC, BMP ####[address] [address] USAGlucose Poct Glucometerson 60-85-2154Rkiyyfq [Mass/Vol]301 mg/dLNoUNC [facility] Physician [facility] HospitalComment on above:Result Comment: Random Glucose Reference Range is dependent on time and content of last meal. Glucose of more than 200 mg/dL in a nonstressed, ambulatory subject supports the diagnosis of Diabetes Hedy litus.PERFORMED BY:[address] [place], [place] [phone] MEDICAL LEESA CHAUDHARY M.D.Performed By: #### GLULS ####Point of Care testing,Glucose [Mass/Vol]306 mg/dLNoUNC [facility] Physician GroupComment on above:Result Comment: Random Glucose Reference Range is dependent on time and content of last meal. Glucose of more than 200 mg/dL in a nonstressed, ambulatory subject supports the diagnosis of Diabetes Mellitus.PERFORMED BY:[address] [place], [place] [phone] MEDICAL LEESA CHAUDHARY M.D.Performed By: #### GLULS ####Point of Care testing,Vwlkpad3Dvd9: Cleaned MeterNoUNC [facility] Physician GroupComment on above:Result Comment: PERFORMED BY:[address] [address] [address] [place]IAJoseJaneFR[place], [place] [phone] MEDICAL LEESA CHAUDHARY M.D.Performed By: #### GLULS ####Point of Care testing,Glucose [Mass/Vol]358 mg/dLJohns Hopkins All Children's Hospital Physician GroupComment on above:Result Comment: Random Glucose Reference Range is dependent on time and content of last meal. Glucose of more than 200 mg/dL in a nonstressed, ambulatory subject supports the diagnosis of Diabetes Mellitus.Performed By: #### GLULS ####Point of Care testing,Glucose [Mass/Vol]289 mg/dLJohns Hopkins All Children's Hospital Physician GroupComment on above:Result Comment: Random Glucose Reference Range is dependent on time and content of last meal. Glucose of more than 200 mg/dL in a nonstressed, ambulatory subject supports the diagnosis of Diabetes Mellitus.PERFORMED BY:[address] [address] [address] KCJane[place], [place] [phone] MEDICAL LEESA CHAUDHARY M.D.Performed By: #### GLULS ####Point of Care testing, Glucose [Mass/Vol]315 mg/dLJohns Hopkins All Children's Hospital Physician GroupComment on above: Result Comment: Random Glucose Reference Range is dependent on time and content of last meal. Glucose of more than 200 mg/dL in a nonstressed, ambulatory subject supports the diagnosis of Diabetes Mellitus.PERFORMED BY:[address] [address] [address] KCJane[place], [place] [phone] ISRA CHAUDHARY M.D.Performed By: #### GLULS ####Point of Care testing,Glucose [Mass/Vol]358 mg/dLJohns Hopkins All Children's Hospital Physician GroupComment on above:Result Comment: Random Glucose Reference Range is dependent on time and content of last meal. Glucose of more than 200 mg/dL in a nonstressed, ambulatory subject supports the diagnosis of Diabetes Mellitus.PERFORMED BY:[address] [address] [address] [place]IAJoseJaneFR[place], [place] [phone] MEDICAL LEESA CHAUDHARY M.D.Performed By: #### GLULS ####Point of Care testing,Antibody Identificationon 12-28-2024 Antibody RbkwpwtohaykaxMH55GconwcHdjGrand Itasca Clinic and HospitalBasic Metabolic Panelon 30-38-1529Mkuje gap [Moles/Vol]9.3 mmol/LNormal6.0-15.0The [facility] Physician [facility] HospitalComment on above:Performed By: #### BMP, DIFF CBC ####[address] [address] USACalcium [Mass/Vol]6.8 mg/dLLow8.6-10.3The [facility] Physician [facility] HospitalComment on above:Performed By: #### BMP, DIFF CBC ####[address] [address] USAChloride [Moles/Vol]102 mmol/RYflwre55-525Niz [facility] Physician [facility] HospitalComment on above:Performed By: #### BMP, DIFF CBC ####[address] [address] USACO2 [Moles/Vol]26.3 mmol/L Nfazqb00.0-31.0The [facility] Veterans Affairs Medical CenterComment on above:Performed By: #### BMP, DIFF CBC ####[address] [address] USACreatinine [Mass/Vol]1.62 mg/dLHigh0.60-1.20The [facility] Physician [facility] HospitalComment on above:Performed By: #### BMP, DIFF CBC ####[address] [address] USACreatinine Clr Calc Pharmacy 38.00NoCleveland Clinic Marymount HospitalComment on above:Result Comment: PERFORMED BY:[address] [place], [place] [phone] MEDICAL LEESA CHAUDHARY M.D.Performed By: #### BMP, DIFF CBC ####[address] [address] USAGFR/1.73 sq M.predicted MDRD (S/P/Bld) [Vol rate/Area]34.826 mL/min/{1.73_m2}NormalThe [facility] Physician GroupComment on above:Performed By: #### BMP, DIFF CBC ####[place] [id number] USAGlucose [Mass/Vol]250 mg/qQVwpm68-227Tbt [facility] Physician GroupComment on above:Result Comment: Random Glucose Reference Range is dependent on time and content of last meal. Glucose of more than 200 mg/dL in a nonstressed, ambulatory subject supports the diagnosis of Diabetes Mellitus. ADA recommended reference rangePerformed By: #### BMP, DIFF CBC ####[place] [address] USAPotassium [Moles/Vol] 3.6 mmol/LNormal3.5-5.1The [facility] Physician GroupComment on above:Performed By: #### BMP, DIFF CBC ####[place] [id number] USASodium [Moles/Vol]134 mmol/QPgg080-899Atb [facility] Physician GroupComment on above:Performed By: #### BMP, DIFF CBC ####[place] [id number] USAUrea nitrogen [Mass/Vol]36 mg/dLHigh7-25The [facility] Physician GroupComment on above: Performed By: #### BMP, DIFF CBC ####[place] [address] USABioFire Not Detectedon 42-79-1848EzxQkeb Not DetectedNot detectedNormalNot DetecteThe [facility]redell [facility] Physician GroupComment on above:Result Comment: This is a duplicate RP2.1 COVID (PCR) result to be used for statistical tracking purpose only.PERFORMED BY:[address] [place], [place] [phone] MEDICAL LEESA CHAUDHARY M.D.Performed By: #### BIOFIRECOVNOTDE, RESP PANEL UPP. ####[id number] [place] Pathologist Reviewon 72-18-6661[place] Pathologist ReviewSent to PathologyJohns Hopkins All Children's Hospital Physician [facility] Watkins Memorial HospitalComment on above:Result Comment: PERFORMED BY:[address] [address] [address] [place], [place] [phone] MEDICAL DIRECTORELAINE CHAUDHARY M.D.Diff and CBCon 05-43-1524Xzspfahatsvs Ql (Bld)SlightNoUNC Hospitals Hillsborough Campus Physician [facility]. [facility]. Watkins Memorial HospitalComment on above:Performed By: #### BMP, DIFF CBC ####[address] [address] USABand form neutrophils/100 WBC (Bld)14 %High0-5The [facility] Physician [facility] Watkins Memorial HospitalComment on above:Performed By: #### BMP, DIFF CBC ####[address] [address] USAErythrocyte distribution width (RBC) [Ratio]15.0 %Pbnjpx81.9-15.3The [facility] Physician [facility] Memorial HospitalComment on above:Performed By: #### BMP, DIFF CBC ####[address] [address] USAGiant Platelet Tally2 /100{WBC}NormalThe [facility] Physician [facility] Memorial HospitalComment on above: Performed By: #### BMP, DIFF CBC ####[address] [address] USAHematocrit (Bld) [Volume fraction]29.4 %Low34.0-46.4 The [facility] Physician [facility] Memorial HospitalComment on above:Performed By: #### BMP, DIFF CBC ####[address] [address] [place] Hemoglobin (Bld) [Mass/Vol]9.7 g/dLLow11.8-15.4The [facility] Comment on above:Performed By: #### BMP, DIFF CBC ####[address] [address] USALarge PlateletsSlightNoUNC Hospitals Hillsborough [facility] Physician [facility]. Watkins Memorial HospitalComment on above:Result Comment: PERFORMED BY:[address] [address] [address] [place], [place] [phone] MEDICAL DIRECTORELAINE CHAUDHARY M.D.Performed By: #### BMP, DIFF CBC ####[place] [address] [place] Lymphocytes/100 WBC (Bld)31 %Rzgxix20-64Rvj [facility] Physician GroupComment on above:Performed By: #### BMP, DIFF CBC ####[place] [id number] [facility] ([facility]BC) [Entitic mass]29.4 hmFzcuqj21.7-34.3 The [facility] Physician GroupComment on above:Performed By: #### BMP, DIFF CBC ####[place] [address] [facility] (RBC) [Entitic vol]88.7 bBVvziwb04-893Woz [facility] Physician GroupComment on above:Performed By: #### BMP, DIFF CBC ####[place] [address] USAMean Corpuscular HGB Conc33.1 g/dLNormal 32.0-35.0The [facility] Physician GroupComment on above:Performed By: #### BMP, DIFF CBC ####[address] [address] USAMicrocytosisSlightNormAdventHealth Ocala Physician GroupComment on above: Performed By: #### BMP, DIFF CBC ####[place] [address] USAMonocytes/100 WBC (Bld)2 %Normal2-11The [facility] Physician GroupComment on above:Performed By: #### BMP, DIFF CBC ####[address] USAOvalocytesSlight NormalColumbia Miami Heart Institute Physician GroupComment on above:Performed By: #### BMP, DIFF CBC ####[address] [place] Platelet EstimateDecreasedNormalNormAdventHealth Ocala Physician GroupComment on above:Performed By: #### BMP, DIFF CBC ####[address] [address] USAPlatelet mean volume (Bld) [Entitic vol]11.3 fLHigh6.3-10.7The [facility] Physician GroupComment on above:Performed By: #### BMP, DIFF CBC ####[address] [address] USAPlatelets (Bld) [#/Vol]4 10*3/uLOff scale cln419-631Uwy [facility] Physician GroupComment on above:Performed By: #### BMP, DIFF CBC ####[address] [address] USAPoikilocytosisSlight NormalThe [facility] Physician GroupComment on above:Performed By: #### BMP, DIFF CBC ####[address] [address] [place] RBC (Bld) [#/Vol]3.31 10*6/uLLow3.60-5.00The [facility] Physician GroupComment on above:Performed By: #### BMP, DIFF CBC ####[address] [address] USAReactive Lymphocytes4 %Normal0-12The [facility] Physician GroupComment on above:Performed By: #### BMP, DIFF CBC ####[address] [address] USASegmented neutrophils/100 WBC (Bld)50 %Njcnbt07-20Tvi [facility] Physician GroupComment on above:Performed By: #### BMP, DIFF CBC ####[address] [address] USASpherocytesSlightJohns Hopkins All Children's Hospital Physician GroupComment on above:Performed By: #### BMP, DIFF CBC ####[address] [address] USATear Drop CellsSlightNoUNC Hospitals Hillsborough Campus Physician GroupComment on above:Performed By: #### BMP, DIFF CBC ####[address] [address] USAWBC (Bld) [#/Vol]0.6 10*3/uLLow3.8-11.6The [facility] Physician GroupComment on above:Performed By: #### BMP, DIFF CBC ####[address] [address] USAWhite Blood Count0.6 [CFU]/mLLow3.8-11.6The [facility] Physician GroupComment on above:Performed By: #### BMP, DIFF CBC ####[place] [address] USAGlucose Poct Glucometerson 88-19-2228Mpjmjdi3ChpadyQdz35 Owens StreetComment on above:Result Comment: Glu2: WILL NOTIFY DR/RNPERFORMED BY:[address]GAG[address] [place], [place] [phone] MEDICAL LEESA CHAUDHARY M.D.Performed By: #### GLULS ####Point of Care testing, Glucose [Mass/Vol]473 mg/dLOff scale [facility] Physician [facility] Memorial HospitalComment on above:Result Comment: Random Glucose Reference Range is dependent on time and content of last meal. Glucose of more than 200 mg/dL in a nonstressed, ambulatory subject supports the diagnosis of Diabetes Mellitus.Performed By: #### GLULS ####Point of Care testing,Blmrdqm3FqdwlfIvlJohns Hopkins All Children's Hospital Physician [facility] Comment on above:Result Comment: Glu2: Will Repeat TestPERFORMED BY:[address] [place], [place] [phone] MEDICAL LEESA CHAUDHARY M.D.Performed By: #### GLULS ####Point of Care testing,Glucose [Mass/Vol]458 mg/dLOff scale [facility] Physician [facility] Comment on above:Result Comment: Random Glucose Reference Range is dependent on time and content of last meal. Glucose of more than 200 mg/dL in a nonstressed, ambulatory subject supports the diagnosis of Diabetes Mellitus.Performed By: #### GLULS ####Point of Care testing,Bnpyads1Htr8: Cleaned MeterJohns Hopkins All Children's Hospital Physician H. [facility]. Watkins Memorial HospitalComment on above:Performed By: #### GLULS ####Point of Care testing,Aumdbna6NHQO NOTIFCarmen HENDERSON/TAWANAJohns Hopkins All Children's Hospital Physician GroupComment on above:Result Comment: PERFORMED BY:[address] [address] [address] [place], [place] [phone] MEDICAL LEESA CHAUDHARY M.D.Performed By: #### GLULS ####Point of Care testing,Glucose [Mass/Vol]463 mg/dLOff scale highColumbia Miami Heart Institute Physician GroupComment on above: Result Comment: Random Glucose Reference Range is dependent on time and content of last meal. Glucose of more than 200 mg/dL in a nonstressed, ambulatory subject supports the diagnosis of Diabetes Mellitus.Performed By: #### GLULS ####Point of Care testing,Hwurkeu7Sdb1: Cleaned [facility] Physician GroupComment on above:Result Comment: PERFORMED BY:[address] [place], [place] [phone] MEDICAL LEESA CHAUDHARY M.D.Performed By: #### GLULS ####Point of Care testing, Glucose [Mass/Vol]355 mg/dLJohns Hopkins All Children's Hospital Physician GroupComment on above: Result Comment: Random Glucose Reference Range is dependent on time and content of last meal. Glucose of more than 200 mg/dL in a nonstressed, ambulatory subject supports the diagnosis of Diabetes Mellitus.Performed By: #### GLULS ####Point of Care testing,Glucose [Mass/Vol]261 mg/dLJohns Hopkins All Children's Hospital Physician GroupComment on above:Result Comment: Random Glucose Reference Range is dependent on time and content of last meal. Glucose of more than 200 mg/dL in a nonstressed, ambulatory subject supports the diagnosis of Diabetes Hedy litus.PERFORMED BY:[address] [address] [address] [place], [place] [phone] MEDICAL LEESA CHAUDHARY M.D.Performed By: #### GLULS ####Point of Care testing,Glucose [Mass/Vol]304 mg/dLJohns Hopkins All Children's Hospital Physician GroupComment on above:Result Comment: Random Glucose Reference Range is dependent on time and content of last meal. Glucose of more than 200 mg/dL in a nonstressed, ambulatory subject supports the diagnosis of Diabetes Mellitus.PERFORMED BY:[address] [address] [address] [place], [place] [phone] MEDICAL LEESA CHAUDHARY M.D.Performed By: #### GLULS ####Point of Care testing,Respiratory (Upper) Panel, PCRon 78-11-3800Htnkhnjvrnc (Upper) Panel, PCRNormalThe [facility] Physician GroupComment on above:Performed By: #### BIOFIRECOVNOTDE, RESP PANEL UPP. ####[address] [place] [address] [place] Vancomycin,Randomon 88-58-3692Tmjcpsjuse,Gprvyq48.1Jswldi6.0-20.0The [facility] Physician GroupComment on above:Order Comment: Date of last dose?: 20241227 Time of last dose?: 1029Result Comment: Last dose: -PERFORMED BY:[address] [address] [address] KCJaneFR[place], [place] [phone] MEDICAL LEESA CHAUDHARY M.D.Performed By: #### VANCR ####[address] [address] USAAlanine aminotransferase [Enzymatic activity/volume] in Serum or PlasmaOrdered By: PROVIDER TEMP on 30-42-0197IRK [Catalytic activity/Vol]38 U/LNormal7-52Mercy HealthComment on above:Performed By: #### SCAN CBC, CMP ####[address] [address] USAAlbumin [Mass/volume] in Serum or Plasma by Bromocresol green (BCG) dye binding methoOrdered By: PROVIDER TEMP on 24-32-2064Ataxmyy BCG dye [Mass/Vol]3.1 g/dLLow3.5-5.7FAvita Health System Galion HospitalAlkaline phosphatase [Enzymatic activity/volume] in Serum or PlasmaOrdered By: PROVIDER TEMP on 33-17-6854INT [Catalytic activity/Vol]106 U/L Mtvy10-564OxnlnuszjMercy HealthComment on above:Performed By: #### SCAN CBC, CMP ####[address] [place] [address] USAAmerican [place] BB Sendouton 63-98-2295Ruqfldlf [place] BB Sendout Sent to [facility] Physician GroupComment on above:Result Comment: Sent to [facility] for further testing. Final report to follow.PERFORMED BY:[address] [place], [place] [phone] MEDICAL DIRECTORELAINE CHAUDHARY M.D.Anisocytosis [Presence] in Blood by Light microscopyOrdered By: Erin Guevara on 12-27-2024 Anisocytosis Ql (Bld)SlightResearch Belton HospitalalMercy HealthComment on above:Performed By: #### SCAN CBC, CMP ####[address] [address] USAAppearance of UrineOrdered By: Erin Guevara on 46-16-4066Wrbikqrrmp (U)CloudyCritically abnormalCleBlanchard Valley Health SystemComment on above:Order Comment: Name Collection Type:: Clean- Voided MidstreamPerformed By: #### CUU, ADDONUAPLUS ####[address] USAAspartate aminotransferase [Enzymatic activity/volume] in Serum or PlasmaOrdered By: PROVIDER TEMP on 15-01-5576QAP [Catalytic activity/Vol]21 U/EVldpil48-37IypxhdykuMercy HealthComment on above:Performed By: #### SCAN CBC, CMP ####[address] [address] USABacteria [Presence] in Urine by AutomatedOrdered By: Erin Guevara on 28-90-1303Nwogxumd Auto Ql (U)Rare [HPF]None SeenMercy HealthBasophils [#/volume] in Blood by Automated countOrdered By: Erin Guevara on 65-68-5895Sxyqiuude (Bld) [#/Vol]0.0 10*3/uLNormal0.0-0.2FAvita Health System Galion HospitalComment on above:Performed By: #### SCAN CBC, CMP ####[address] [address] USABasophils/100 leukocytes in Blood by Automated countOrdered By: Erin Guevara on 49-10-6785Fivcdrtsh/100 WBC (Bld)0.5 %Normal .Mercy HealthComment on above:Performed By: #### SCAN CBC, CMP ####[address] [address] [place] Bilirubin Test strip Ql (U)Ordered By: Erin Guevara on 01-62-5556Xyuxzahqt Ql (U)NegativeNegativeMercy HealthBilirubin.total [Mass/volume] in Serum or PlasmaOrdered By: PROVIDER TEMP on 98-76-8086Ftvzecrvt [Mass/Vol]0.8 mg/dLNormal0.3-1.0Mercy HealthComment on above:Performed By: #### SCAN CBC, CMP ####[address] [address] USABlood Cultureon 39-57-4218Hhxnyjni identified Cx Nom (Bld)NO GROWTH 5 DAYS PERFORMED BY: [facility] [address] [place] [address] PATHOLOGIST ROLLER HAND ELAINE CHAUDHARY M.D.NormalThe [facility] Physician GroupComment on above: Performed By: #### LACTIC, CUBLD ####[address] [address] USACOVID Cepheid NegativeOrdered By: Erin Guevara on 08-42-7006UYHA-CoV-2 (COVID-19) RNA RONY+probe Ql (Unsp spec)NegativeNormal NegativeMercy HealthComment on above:Result Comment: This is a duplicate Cepheid Xpert Xpress CoV-2/Flu/RSV Plus RNA by RT-PCR result letitia used for statistical tracking purpose only.PERFORMED BY:[address] [place], [place] [phone] MEDICAL LEESA CHAUDHARY M.D.Performed By: #### COVID19 FLU RSV, CEPHEID NEG ####[address] [address] USACOVID- 19 / Flu A/B / RSV PCRon 64-07-4078JLHL-CoV-2 (COVID-19) RNA RONY+probe Ql (Unsp spec)NormalThe [facility] Physician GroupComment on above:Performed By: #### COVID19 FLU RSV, CEPHEID NEG ####[address] [address] USACalcium [Mass/volume] in Serum or PlasmaOrdered By: PROVIDER TEMP on 22-53-4780Izocbhp [Mass/Vol]7.5 mg/dLLow8.6-10.3FAvita Health System Galion HospitalComment on above:Performed By: #### SCAN CBC, CMP ####[place] [address] [facility] Capillary blood glucose measurement by glucometer (mass/volume)Ordered By: Erin Guevara on 93-27-5889Ktlmqjb [Mass/Vol]189 mg/dLNoUK HealthcareComment on above:Result Comment: Random Glucose Reference Range is dependent on time and content of last meal. Glucose of more than 200 mg/dL in a nonstressed, ambulatory subject supports the diagnosis of Diabetes Hedy litus.PERFORMED BY:[address] [place], [place] [phone] MEDICAL LEESA CHAUDHARY M.D.Performed By: #### GLULS ####Point of Care testing,Carbon dioxide, total [Moles/volume] in Serum or PlasmaOrdered By: PROVIDER TEMP on 85-28-5475DF6 [Moles/Vol]31.3 mmol/L High21.0-31.0Mercy HealthComment on above:Performed By: #### SCAN CBC, CMP ####[address] [address] USAChloride [Moles/volume] in Serum or PlasmaOrdered By: PROVIDER TEMP on 35-60-5430Orzsgzdn [Moles/Vol]91 mmol/KNxi09-185JkpspvzaiMercy HealthComment on above:Performed By: #### SCAN CBC, CMP ####[address] [address] USAColor of Urine by AutoOrdered By: Erin Guevara on 48-36-8519Isnbl (U)YellowNormalYellowMercy HealthComment on above:Order Comment: Name Collection Type:: Clean- Voided MidstreamPerformed By: #### CUU, ADDONUAPLUS ####[address] USAComprehensive Metabolic Panelon 04-39-3797Aavgnej [Mass/Vol]3.1 g/dLLow3.5-5.7The [facility]ician Group Comment on above:Performed By: #### SCAN CBC, CMP ####[address] [address] USACreatinine Clr Calc Agxuicxs04.09 [facility] Physician GroupComment on above:Result Comment: PERFORMED BY:[address] [place], [place] [phone] MEDICAL DIRECTORELAINE CHAUDHARY M.D.Performed By: #### SCAN CBC, CMP ####[address] [address] USAGFR/1.73 sq M.predicted MDRD (S/P/Bld) [Vol rate/Area]22.869 mL/min/{1.73_m2} [facility] Physician GroupComment on above:Performed By: #### SCAN CBC, CMP ####[address] [address] [place] Creatinine [Mass/volume] in Serum or PlasmaOrdered By: PROVIDER TEMSimon on 22-65-9713Olxslmywha [Mass/Vol]2.30 mg/dLHigh0.60-1.20Mercy HealthComment on above:Performed By: #### SCAN CBC, CMP ####[address] [address] USADipstick and Microscopicon 29-81-3410Chslbfbu,UrineRareNormalNone SeenThe [facility] Physician GroupComment on above:Order Comment: Name Collection Type:: Clean-Voided MidstreamPerformed By: #### CUU, ADDONUAPLUS ####[address] USABilirubin,UrineNegativeNormalNegativeThe [facility] Physician GroupComment on above:Order Comment: Name Collection Type:: Clean- Voided MidstreamPerformed By: #### CUU, ADDONUAPLUS ####[address] USAGlucose Ql (U)500 mg/dLNormal NormalColumbia Miami Heart Institute Physician GroupComment on above:Order Comment: Name Collection Type:: Clean-Voided MidstreamPerformed By: #### CUU, ADDONUAPLUS ####[address] USAHyaline Casts,Hilpt5-9Zssapp1-6Mtt [facility] Physician GroupComment on above:Order Comment: Name Collection Type:: Clean-Voided MidstreamPerformed By: #### CUU, ADDONUAPLUS ####[address] USAMucus,UrineRareNormalThe [facility] Physician GroupComment on above:Order Comment: Name Collection Type:: Clean-Voided MidstreamResult Comment: PERFORMED BY:[address] [address] [address] [place], [place] [phone] MEDICAL LEESA CHAUDHARY M.D.Performed By: #### CUU, ADDONUAPLUS ####[address] USANitrite,UrineNegativeNormalNegativeColumbia Miami Heart Institute Physician GroupComment on above:Order Comment: Name Collection Type:: Clean-Voided MidstreamPerformed By: #### CUU, ADDONUAPLUS ####[address] USAOccult Blood,UrineNegativeNormalNegativeThe [facility] Physician GroupComment on above:Order Comment: Name Collection Type:: Clean- Voided MidstreamResult Comment: PERFORMED BY:[address] [address] [address] [place], [place] [phone] MEDICAL LEESA CHAUDHARY M.D.Performed By: #### CUU, ADDONUAPLUS ####[address] USARBC,Uboyo5-4Julcpf4-1 The [facility] Physician GroupComment on above:Order Comment: Name Collection Type:: Clean-Voided MidstreamPerformed By: #### CUU, ADDONUAPLUS ####[address] USASpecificy Valley Center,Urine1.293Wcjerv1.001-1.030The [facility] Physician GroupComment on above:Order Comment: Name Collection Type:: Clean-Voided MidstreamPerformed By: #### CUU, ADDONUAPLUS ####[address] USASquamous Epithelial Cell,Yrdxc5-1Oyijeg0-1Yug [facility] Physician GroupComment on above:Order Comment: Name Collection Type:: Clean-Voided MidstreamPerformed By: #### CUU, ADDONUAPLUS ####[address] USAUrobilinogen,UrineNormalNormal NormalThe [facility] Physician GroupComment on above:Order Comment: Name Collection Type:: Clean-Voided MidstreamPerformed By: #### CUU, ADDONUAPLUS ####[address] USAWBC CLUMP, UrineRareNormalNone SeenThe [facility] Physician GroupComment on above: Order Comment: Name Collection Type:: Clean-Voided MidstreamPerformed By: #### CUU, ADDONUAPLUS ####[address] [address] USAWBC,Euhpt64-95Mitzwl8-4Isy [facility] Physician GroupComment on above: Order Comment: Name Collection Type:: Clean-Voided MidstreamPerformed By: #### RIZWAN PADILLAFERMÍNUAPLUS ####[address] [address] USADirect Coombson 45-30-4544Ehtugbdelqyu AHGNegativeNormalNegativeThe [facility] Physician [facility] HospitalComment on above:Result Comment: PERFORMED BY:[address] [place], [place] [phone] MEDICAL DIRECTORELAINE CHAUDHARY M.D.ECG 12 lead ECGon 75-27-8055JLW 12 lead ECGNormalThSouth Central Regional Medical CenterEosinophils [#/volume] in Blood by Automated countOrdered By: Erin Guevara on 02-96-8652Lbzxpulaupr (Bld) [#/Vol] 0.2 10*3/uLNormal0.0-0.45Mercy HealthComment on above: Performed By: #### SCAN CBC, CMP ####[address] [address] USAEosinophils/100 leukocytes in Blood by Automated countOrdered By: Erin Guevara on 71-30-0223Nbivgtycwrv/100 WBC (Bld)11.8 % Normal.Mercy HealthComment on above:Performed By: #### SCAN CBC, CMP ####[place] [address] USAEpithelial cells.squamous [#/area] in Urine sediment by Automated count Ordered By: Erin Guevara on 57-36-5730Zjgttumnqf cells.squamous Auto (Urine sed) [#/Area]5-9 [HPF]High0-2FAvita Health System Galion HospitalErythrocyte distribution width [Ratio] by Automated countOrdered By: Erin Guevara on 68-41-1130Tfbuihhqjgg distribution width (RBC) [Ratio]15.0 %Ssyzzf00.9-15.3 Mercy HealthComment on above:Performed By: #### SCAN CBC, CMP ####[address] [place] [address] [facility] Erythrocyte morphology finding [Identifier] in BloodOrdered By: PROVIDER TEMP on 88-53-0823XRD morphology finding Nom (Bld)N/AFAvita Health System Galion Hospital Erythrocytes [#/area] in Urine sediment by Automated countOrdered By: Erin Guevara on 10-70-7073ONA Auto (Urine sed) [#/Area]1-2 [HPF]0-4FAvita Health System Galion HospitalErythrocytes [#/volume] in Blood by Automated countOrdered By: Erin Guevara on 26-56-4520SDT (Bld) [#/Vol]3.97 10*6/uLNormal3.60-5.00 Mercy HealthComment on above:Performed By: #### SCAN CBC, CMP ####[address] [place] [address] [place] Fibrinogenon 52-85-2314Vvhgrtvvyq846 mg/rRBcoepp881-868Xug [facility] Physician GroupComment on above:Result Comment: A hematocrit value greater than 55% may lead to inaccurate results in coagulation testing. Patients having hematocrit values >55% require a special collection tube for coagulation studies. Please contact the laboratory at [phone] for redraw instructions.PERFORMED BY:[address] [place], [place] [phone] MEDICAL LEESA CHAUDHARY M.D.Performed By: #### PATH SLIDE REV, PT, FIB-C, PTT ####[address] [address] USAFibrinogen [Mass/volume] in Platelet poor plasma by Coagulation assayOrdered By: Margarito Rajan on 33-93-2091Jkodssorpu Coag (PPP) [Mass/Vol]291 mg/gK417-271HeezxjdzuMercy HealthGlomerular filtration rate [Volume Rate/Area] in Serum, Plasma or Blood by CreatinineOrdered By: PROVIDER TEMSimon on 67-68-9733Mfufykcthx filtration rate [Volume Rate/Area] in Serum, Plasma or Blood by Ysjbcygzgs27.869 mL/MinMercy HealthGlucose [Mass/volume] in Serum or PlasmaOrdered By: PROVIDER TEMP on 80-39-0163Oemvyja [Mass/Vol]194 mg/vOSlse87-022FmqlzcqmhMercy Health Comment on above:Result Comment: Random Glucose Reference Range is dependent on time and content of last meal. Glucose of more than 200 mg/dL in a nonstressed, ambulatory subject supports the diagnosis of Diabetes Mellitus. ADA recommended reference rangePerformed By: #### SCAN CBC, CMP ####[facility] [id number] USAGlucose [Mass/volume] in Urine by Test stripOrdered By: Erin Guevara on 02-84-5563Swoemue Test strip (U) [Mass/Vol] 500 mg/dLHighNormalMercy HealthHematocrit [Volume Fraction] of Blood by Automated countOrdered By: Erin Guevara on 74-84-3492Scmlzpnwif (Bld) [Volume fraction]34.7 %Ognprx75.0-46.4FAvita Health System Galion Hospital Comment on above:Performed By: #### SCAN CBC, CMP ####[address] [place] [address] USAHemoglobin Test strip Ql (U)Ordered By: Erin Guevara on 29-34-4717Pswnpsigxo Ql (U)NegativeNegativeMercy HealthHemoglobin [Mass/volume] in BloodOrdered By: Erin Guevara on 33-55-1784Cjwchdveun (Bld) [Mass/Vol]11.6 g/dLLow11.8-15.4FAvita Health System Galion HospitalComment on above:Performed By: #### SCAN CBC, CMP ####[facility] [place] [address] USAHyaline casts [#/area] in Urine sediment by Automated countOrdered By: Erin Guevara on 78-11-6548Axdbjie casts Auto (Urine sed) [#/Area]0-8 [LPF]0-8Mercy HealthINR in Platelet poor plasma by Coagulation assayOrdered By: Margarito Rajan on 13-89-6012AWH Coag (PPP) [Relative time]1.3 {INR}Normal Mercy HealthComment on above:Result Comment: INR Therapeutic Range A) Pre- and [...] patients with mechanical heart valves: 3 - 4.5Performed By: #### PATH SLIDE REV, PT, FIB-C, PTT ####[address] [place] [address] USAKetones [Presence] in Urine by Test stripOrdered By: Erin Guevara on 75-02-6343Imjqtkp Ql (U)NegativeNormal NegativeMercy HealthComment on above:Order Comment: Name Collection Type:: Clean-Voided MidstreamPerformed By: #### CUU, ADDONUAPLUS ####[address] [address] USALon 04-73-2076JCizoanDqi [facility] Physician GroupLactate [Moles/volume] in Serum or PlasmaOrdered By: Erin Guevara on 05-65-2774Ehzswvf [Moles/Vol]1.7 mmol/L Normal0.5-1.9Mercy HealthComment on above:Result Comment: Lactic Acid reference range has been updated to 0.5 ? 1.9 mmol/L and the critical range of 2.0 or greater.PERFORMED BY:[address] [place], [place] [phone] MEDICAL LEESA CHAUDHARY M.D.Performed By: #### LACTIC, CUBLD ####[address] [address] USALeukocyte clumps [Presence] in Urine by AutomatedOrdered By: Erin Guevara on 12-27-2024 Leukocyte clumps Auto Ql (U)Rare [LPF]HighNone SeenMercy HealthLeukocyte esterase [Presence] in Urine by Test stripOrdered By: Erin Guevara on 68-20-5215Iougfwlay esterase Test strip Ql (U)2+NormalNegative Mercy HealthComment on above:Order Comment: Name Collection Type:: Clean-Voided MidstreamPerformed By: #### SKYLAR PADILLAPLUS ####[address] [place], [place] USALeukocytes [#/area] in Urine sediment by Automated countOrdered By: Erin Guevara on 88-71-0982ESL Auto (Urine sed) [#/Area]10-19 [HPF]High0-4FAvita Health System [facility] Hospital Leukocytes [#/volume] corrected for nucleated erythrocytes in Blood by Automated counOrdered By: Erin Guevara on 63-43-1226BZF corrected for nucl RBC Auto (Bld) [#/Vol]1.8 10*3/uLLow3.8-11.6FAvita Health System Galion HospitalLeukocytes [#/volume] in Blood by Automated countOrdered By: Erin Guevara on 12-27-2024 WBC (Bld) [#/Vol]1.8 10*3/uLLow3.8-11.6FAvita Health System Galion HospitalComment on above:Performed By: #### SCAN CBC, CMP ####[address] [address] USALymphocytes [#/volume] in Blood by Automated countOrdered By: Erin Guevara on 42-14-8440Scwanfttfmp (Bld) [#/Vol]0.8 10*3/uLLow1.00-4.8Mercy HealthComment on above:Performed By: #### SCAN CBC, CMP ####[address] [address] USALymphocytes/100 leukocytes in Blood by Automated countOrdered By: Erin Guevara on 95-30-1716Lhyofakzera/100 WBC (Bld)44.4 % Normal.Mercy HealthComment on above:Performed By: #### SCAN CBC, CMP ####[address] [place] [address] USAMCH [Entitic mass] by Automated countOrdered By: Erin Guevara on 12-27-2024 MCH (RBC) [Entitic mass]29.3 awRyytfc02.7-34.3FAvita Health System [facility] Hospital Comment on above:Performed By: #### SCAN CBC, CMP ####[id number] [facility] Auto (RBC) [Mass/Vol]Ordered By: Erin Guevara on 78-89-2065YDJE (RBC) [Mass/Vol]33.5 g/dL32.0-35.0Mercy HealthMCV [Entitic volume] by Automated countOrdered By: Erin Guevara on 60-43-4414XWW (RBC) [Entitic vol]87.3 mJTwnmyp34-348BvnqcbikwMercy HealthComment on above:Performed By: #### SCAN CBC, CMP ####[place] [address] [place] Monocyte distribution width [Entitic volume] in Blood by AutomatedOrdered By: Erin Guevara on 93-44-8535Panwzzkh distribution width Auto (Bld) [Entitic vol] 44.69 %High0.00-20.00Mercy HealthMonocytes [#/volume] in Blood by Automated countOrdered By: Erin Guevara on 85-53-1413Msuuoyuai (Bld) [#/Vol]0.2 10*3/uLNormal0.0-0.8Mercy HealthComment on above:Performed By: #### SCAN CBC, CMP ####[id number] USAMonocytes/100 leukocytes in Blood by Automated countOrdered By: Erin Guevara on 76-00-8000Qjbcbxhct/100 WBC (Bld)10.0 % Normal.Mercy HealthComment on above:Performed By: #### SCAN CBC, CMP ####[place] [address] USAMucus [Presence] in Urine by AutomatedOrdered By: Erin Guevara on 61-61-4289Sfbsl Auto Ql (U)Rare [LPF][facility] Neutrophils [#/volume] in Blood by Automated countOrdered By: Erin Guevara on 81-65-2303Ovzcupqrihv (Bld) [#/Vol]0.6 10*3/uLLow1.8-7.7FAvita Health System Galion HospitalComment on above:Performed By: #### SCAN CBC, CMP ####[facility] [address] [place] [address] USANeutrophils/100 leukocytes in Blood by Automated countOrdered By: Erin Guevara on 12-27-2024 Neutrophils/100 WBC (Bld)33.3 %Normal.Mercy HealthComment on above:Performed By: #### SCAN CBC, CMP ####[facility] [address] [place] [address] USANitrite Test strip Ql (U)Ordered By: Erin Guevara on 80-45-3064Tsjftam Ql (U)NegativeNegativeMercy HealthNo Panel InformationOrdered By: Margarito Rajan on 55-37-3024Mlnwwrm [facility] reviewMercy HealthNo Panel InformationOrdered By: PROVIDER TEMP on .[address] [place], [place] [address]Nucleated erythrocytes [Presence] in Blood by Automated countOrdered By: Erin Guevara on 12-27-2024 Nucleated RBC Auto Ql (Bld)0.2 /100{WBC}0-0.5FAvita Health System [facility] Hospital Ovalocytes [Presence] in Blood by Light microscopyOrdered By: Erin Guevara on 99-55-5511Ydgbaeryeg LM Ql (Bld)SlightMercy HealthPartial Thromboplastin Timeon 70-92-9662aUMF Coag (Bld) [Time]26.2 mEgscao44.1-36.5The [facility] Physician GroupComment on above:Result Comment: A hematocrit value greater than 55% may lead to inaccurate results in coagulation testing. Patients having hematocrit values >55% require a special collection tube for coagulation studies. Please contact the laboratory at [phone] for redraw instructions. Performed By: #### PATH SLIDE REV, PT, FIB-C, PTT ####[facility] [address] [place] [address] USAPathologist Slide Reviewon 12-27-2024 Pathologist Slide ReviewOrdered Path ReviewNormAdventHealth Ocala Physician Group Comment on above:Result Comment: PERFORMED BY:[address] [place], [place] [phone] MEDICAL DIRECTORELAINE CHAUDHARY M.D.Performed By: #### PATH SLIDE REV, PT, FIB-C, PTT ####[facility] [address] [place] [address] [facility] Pathology study report documentOrdered By: Aldair Blake on 71-25-4887Mstoargot study [facility] Other Platelet Pheresis LRon 69-50-4013Hmjrbzsl Pheresis LR TRANSFUSED 12/29/24 [facility] Physician GroupPlatelet adequacy [Presence] in Blood by Light microscopyOrdered By: Erin Guevara on 12-27-2024 Platelets LM Ql (Bld)DecreasedSalem City HospitalPlatelet mean volume [Entitic volume] in Blood by Automated countOrdered By: Erin Guevara on 36-33-9591Fqutwtnb mean volume (Bld) [Entitic vol]12.1 fLHigh6.3-10.7 Mercy HealthComment on above:Performed By: #### SCAN CBC, CMP ####[address] [place] [address] [facility] Platelet morphology finding [Identifier] in BloodOrdered By: Erin Guevara on 95-96-9732Bqnhffts morphology finding Nom (Bld)NormalSalem City HospitalPlatelets [#/volume] in Blood by Automated countOrdered By: Erin Guevara on 86-06-3915Huncenxtq (Bld) [#/Vol]5 10*3/uLOff scale rgg109-462 Mercy HealthComment on above:Result Comment: Critical value result called at 0545 on 12/27/24Performed By: #### SCAN CBC, CMP ####[address] [place] [address] USAPoikilocytosis [Presence] in Blood by Light microscopyOrdered By: Erin Guevara on 12-27-2024 Poikilocytosis LM Ql (Bld)SlightMercy HealthPolychromasia [Presence] in Blood by Light microscopyOrdered By: Erin Guevara on 12-27-2024 Polychromasia LM Ql (Bld)SlightMercy HealthPotassium [Moles/volume] in Serum or PlasmaOrdered By: PROVIDER TEMP on 12-27-2024 Potassium [Moles/Vol]4.0 mmol/LNormal3.5-5.1FAvita Health System [facility] Comment on above:Performed By: #### SCAN CBC, CMP ####[address] [address] USAProtein [Mass/volume] in Serum or PlasmaOrdered By: PROVIDER TEMP on 98-31-1697Emfjkux [Mass/Vol]5.9 g/dLLow 6.4-8.9Mercy HealthComment on above:Performed By: #### SCAN CBC, CMP ####[address] [address] USAProtein [Mass/volume] in Urine by Test stripOrdered By: Erin Guevara on 40-70-2558Qorrcph (U) [Mass/Vol]30 mg/dLNormalNegativeMercy HealthComment on above:Order Comment: Name Collection Type:: Clean-Voided MidstreamPerformed By: #### CUU, ADDONUAPLUS ####[address] USAProthrombin time (PT)Ordered By: Margarito Rajan on 67-80-0780SA Coag (PPP) [Time]15.1 sHigh9.0-12.9Mercy HealthComment on above:Result Comment: A hematocrit value greater than 55% may lead to inaccurate results in coagulation testing. Patients having hematocrit values >55% require a special collection tube for coagulation s tukash. Please contact the laboratory at [phone] for redraw instructions. Performed By: #### PATH SLIDE REV, PT, FIB-C, PTT ####[address] [address] USAScan and CBCon 27-19-9311Dziw Corpuscular HGB Conc33.5 g/uYPswtgm75.0-35.0The [facility] Physician GroupComment on above:Performed By: #### SCAN CBC, CMP ####[address] [address] USAMonocytes/100 WBC (Bld)44.69 %High 0.00-20.00The [facility] Physician GroupComment on above:Result Comment: For adults in ED, MDW > 20.0 may be associated with a higher risk of sepsis during the first 12 hrs of hospital admission The predictive value of MDW for identifying sepsis in patients with hematological abnormalities has not been establishedPerformed By: #### SCAN CBC, CMP ####[address] [address] USANRBC%0.2 /100{WBC}Normal0-0.5The [facility] Physician GroupComment on above:Performed By: #### SCAN CBC, CMP ####[address] [address] [place] OvalocytesSCritical access hospital Physician GroupComment on above:Performed By: #### SCAN CBC, CMP ####[address] [address] USAPlatelet EstimateDecreasedNormHCA Florida Sarasota Doctors Hospital Physician GroupComment on above:Performed By: #### SCAN CBC, CMP ####[address] [address] USAPlatelet Morphology NormalNormHCA Florida Sarasota Doctors Hospital Physician GroupComment on above:Result Comment: PERFORMED BY:[address] [place], [place] [phone] MEDICAL LEESA CHAUDHARY M.D.Performed By: #### SCAN CBC, CMP ####[address] [address] USAPoikilocytosisSCritical access hospital Physician GroupComment on above:Performed By: #### SCAN CBC, CMP ####[address] [address] USAPolychromasiaSCritical access hospital Physician GroupComment on above:Performed By: #### SCAN CBC, CMP ####[address] [address] USAWhite Blood Count1.8 [CFU]/mLLow3.8-11.6The [facility] Physician GroupComment on above:Performed By: #### SCAN CBC, CMP ####[address] [address] USASerum globulin measurement by calculation (mass/volume)Ordered By: PROVIDER TEMP on 83-07-7762Bugaxjcs (S) [Mass/Vol]2.8 g/dLNormalMercy HealthComment on above:Performed By: #### SCAN CBC, CMP ####[address] USASerum or plasma albumin/globulin mass ratioOrdered By: PROVIDER TEMP on 12-27-2024 Albumin/Globulin [Mass ratio]1.1 {ratio}NormalMercy Health Comment on above:Performed By: #### SCAN CBC, CMP ####[address] USASerum or plasma anion gap determinationOrdered By: PROVIDER TEMP on 22-08-8908Qvxia gap [Moles/Vol]12.7 mmol/LNormal6.0-15.0Mercy HealthComment on above:Performed By: #### SCAN CBC, CMP ####[address] USASodium [Moles/volume] in Serum or PlasmaOrdered By: PROVIDER TEMP on 14-84-1314Mtegyr [Moles/Vol]131 mmol/YGbv640-830VaqwcivjrMercy HealthComment on above:Performed By: #### SCAN CBC, CMP ####[address] [place] Specific gravity Test strip (U) [Rel density]Ordered By: Erin Guevara on 90-90-2212Izwmgsyi gravity (U) [Rel density]1.0191.001-1.030Mercy HealthType and Screenon 67-00-9514MEL and Rh group Nom (Bld)Blood group A Rh(D) positiveNormalThSt. Luke's [facility] Physician H. [facility] Watkins Memorial HospitalComment on above:Order Comment: communicated to JYOTSNA WU Transfuse now? Y Number of units to transfuse now? [address]) Transfuse now? Y Number of units to transfuse now? 1Result Comment: PERFORMED BY:[facility] [place], [place] [phone] MEDICAL DIRECTORELAINE CHAUDHARY M.D.US renal BI on 61-68-8448ZO renal BINormalThe James E. Van Zandt Veterans Affairs Medical CenterUrea nitrogen [Mass/volume] in Serum or PlasmaOrdered By: PROVIDER TEMP on 94-54-1793Awss nitrogen [Mass/Vol]38 mg/dLSaugus General Hospital-Mercy HealthComment on above:Performed By: #### SCAN CBC, CMP ####[facility] [address] [place] [address] USAUrine Cultureon 30-80-9206Trtwclfw identified Cx Nom (U)Urine Culture Results >100,000 col/ml Mixed Bacterial Skin Contaminants 2 Days PERFORMED BY: [facility] [address] [place] [address] PATHOLOGIST ROLLER HAND ELAINE CHAUDHARY M.D.NormalThe [facility] Hospital Physician GroupComment on above: Performed By: #### CUU, ADDONUAPLUS ####[facility] [address] [place], [place] [address] USAUrobilinogen Test strip (U) [Mass/Vol]Ordered By: Erin Guevara on 07-73-2441Nfpkxpjglzpt (U) [Mass/Vol]Normal mg/dLNormal Mercy HealthX-ray reportOrdered By: Domenico Brown on 30-77-0365Shvbd reportMercy HealthXR chest 2V*on 12-27-2024 XR chest 2V*NormalThe [facility] Physician GroupaPTT in Platelet poor plasma by Coagulation assayOrdered By: Margarito Rajan on 11-83-7070fNEB Coag (PPP) [Time] 26.2 s25.1-36.5FAvita Health System Galion HospitalpH of Urine by Test stripOrdered By: Erin Guevara on 61-48-0090xW (U)5.5 [pH]Normal5.0-9.0Mercy HealthComment on above:Order Comment: Name Collection Type:: Clean- Voided MidstreamPerformed By: #### CUU, ADDONUAPLUS ####[address] [place], [place] [facility]ICAL CENTERAlanine aminotransferase [Enzymatic activity/volume] in Serum or PlasmaOrdered By: Roxnae Bills on 43-30-7263CSY [Catalytic activity/Vol]49 U/LNormal7-52Mercy HealthComment on above:Performed By: #### CMP, DIFF CBC ####[address] [address] USAAlbumin [Mass/volume] in Serum or Plasma by Bromocresol green (BCG) dye binding methoOrdered By: Roxane Bills on 73-15-0274Dnrzodo BCG dye [Mass/Vol]3.1 g/dLLow3.5-5.7FAvita Health System Galion HospitalAlkaline phosphatase [Enzymatic activity/volume] in Serum or Plasma Ordered By: Roxane Bills on 70-28-5337NVS [Catalytic activity/Vol]110 U/VCoxi57-599 Mercy HealthComment on above:Performed By: #### CMP, DIFF CBC ####[address] [address] [facility] Aspartate aminotransferase [Enzymatic activity/volume] in Serum or PlasmaOrdered By: Roxane Bills on 11-23-9770NHF [Catalytic activity/Vol]29 U/LPlhyuz16-51 Mercy HealthComment on above:Performed By: #### CMP, DIFF CBC ####[address] [address] [place] Band form neutrophils/100 leukocytes in Blood by Manual countOrdered By: Roxane Bills on 63-46-7653Bkkg form neutrophils/100 WBC (Bld)4 %Normal0-5FAvita Health System Galion HospitalComment on above:Performed By: #### CMP, DIFF CBC ####[address] [address] [place] Basophils Auto (Bld) [#/Vol]Ordered By: Roxane Bills on 27-83-1011Edmvutnvq (Bld) [#/Vol]N/[facility] Health SystemBasophils/100 WBC Auto (Bld)Ordered By: Roxane Bills on 63-37-6190Unmyziqjx/100 WBC (Bld)N/[facility] Hospitals Health SystemBilirubin.total [Mass/volume] in Serum or PlasmaOrdered By: Roxane Bills on 57-97-0396Kdmnkkalo [Mass/Vol]0.6 mg/dLNormal0.3-1.0Mercy HealthComment on above:Performed By: #### CMP, DIFF CBC ####[address] [address] USACalcium [Mass/volume] in Serum or PlasmaOrdered By: Roxane Bills on 61-92-4144Mtaqido [Mass/Vol]7.5 mg/dLLow 8.6-10.3FAvita Health System Galion HospitalComment on above:Performed By: #### CMP, DIFF CBC ####[address] [address] USACarbon dioxide, total [Moles/volume] in Serum or PlasmaOrdered By: Roxane Bills on 89-61-8211ZD0 [Moles/Vol]35.1 mmol/LHigh21.0-31.0Mercy HealthComment on above:Performed By: #### CMP, DIFF CBC ####[address] [address] USAChloride [Moles/volume] in Serum or PlasmaOrdered By: Roxane Bills on 85-65-5508Lsaqcfuv [Moles/Vol]94 mmol/HPaq95-743KcronwwvxMercy HealthComment on above: Performed By: #### CMP, DIFF CBC ####[address] [address] USAComprehensive Metabolic Panelon 07-02-0891Lszfhnt [Mass/Vol]3.1 g/dLLow3.5-5.7The [facility] Physician GroupComment on above: Performed By: #### CMP, DIFF CBC ####[facility] [place] [address] USACreatinine Clr Calc Jwupiffx79.13NoUNC Hospitals Hillsborough Campus Physician GroupComment on above:Result Comment: PERFORMED BY:[address] [place], [place] [phone] MEDICAL LEESA CHAUDHARY M.D.Performed By: #### CMP, DIFF CBC ####[address] [place] [address] USAGFR/1.73 sq M.predicted MDRD (S/P/Bld) [Vol rate/Area]21.622 mL/min/{1.73_m2}NormalThe [facility] Hospital Physician GroupComment on above:Performed By: #### CMP, DIFF CBC ####[address] [place] [address] [facility] Comprehensive metabolic panelon 93-40-5445Mieezqu [Mass/Vol]3.1 g/dLLow3.5 - 5.7 g/dLNOMS HealthcareAlbumin/Globulin [Mass ratio]1.2 {ratio}NOMS HealthcareALP [Catalytic activity/Vol]110 U/LHigh34 - 104 U/LNOMS HealthcareALT [Catalytic activity/Vol]49 U/L7 - 52 U/LNOMS HealthcareAnion gap [Moles/Vol]11.1 mmol/L6.0 - 15.0NOMS HealthcareAST [Catalytic activity/Vol]29 U/L13 - 39 U/LNOMS HealthcareBilirubin [Mass/Vol]0.6 mg/dL0.3 - 1.0 mg/dLNOMS HealthcareCalcium [Mass/Vol]7.5 mg/dLLow8.6 - 10.3 mg/dLNOMS HealthcareChloride [Moles/Vol]94 mmol/LLow98 - 107 mmol/LNOMS HealthcareCO2 [Moles/Vol]35.1 mmol/LHigh21.0 - 31.0 mmol/LNOMS HealthcareCreatinine (U) [Mass/Vol]2.41 mg/dLHigh0.60 - 1.20 mg/dL NOMS HealthcareCREATININE CLR CALC BSIBWVCW93.13NOMS HealthcareGFR/1.73 sq M.predicted MDRD (S/P/Bld) [Vol rate/Area]21.622 mL/min/{1.73_m2}[facility] Globulin (S) [Mass/Vol]2.5 g/dLNOMS HealthcareGlucose [Mass/Vol]82 mg/dL70 - 100 mg/dLNOCT HealthcareComment on above:Random Glucose Reference Range is dependent on time and content of last meal. Glucose of more than 200 mg/dL in a nonstressed, ambulatory subject supports the diagnosis of Diabetes Mellitus. ADA recommended reference range Interpretation and review of laboratory resultsAbnormalNOMS HealthcarePotassium [Moles/Vol]4.2 mmol/L3.5 - 5.1 mmol/LNOMS HealthcareProtein [Mass/Vol]5.6 g/dL Low6.4 - 8.9 g/dLNOCT HealthcareSodium [Moles/Vol]136 mmol/L136 - 145 mmol/LNOMS HealthcareUrea nitrogen [Mass/Vol]32 mg/dLHigh7 - 25 mg/dLNOHawthorn Children's Psychiatric HospitalNOCT HealthcareCreatinine [Mass/volume] in Serum or PlasmaOrdered By: Roxane Bills on 70-27-1302Umsyvktzbr [Mass/Vol]2.41 mg/dLHigh0.60-1.20Mercy HealthComment on above:Performed By: #### CMP, DIFF CBC ####[address] USADiff and CBCon 81-62-8178Itbu Corpuscular HGB Conc32.4 g/kVMehzbi70.0-35.0The [facility] Physician GroupComment on above:Performed By: #### CMP, DIFF CBC ####[address] [address] USAPlatelet EstimateDecreasedNormalNormal The [facility] Physician GroupComment on above:Performed By: #### CMP, DIFF CBC ####[address] [place] Platelet MorphologyNormalNormalNormalThe [facility] Physician [facility] Watkins Memorial HospitalComment on above:Result Comment: PERFORMED BY:[address] [place] [place], [place] [phone] MEDICAL DIRECTORELAINE CHAUDHARY M.D.Performed By: #### CMP, DIFF CBC ####[address] [address] USAReactive Lymphocytes2 %Normal0-12The [facility] Physician [facility] Watkins Memorial HospitalComment on above:Performed By: #### CMP, DIFF CBC ####[address] [address] USAWhite Blood Count2.8 [CFU]/mLLow3.8-11.6The [facility] Physician GroupComment on above:Performed By: #### CMP, DIFF CBC ####[address] [address] USAEosinophils Auto (Bld) [#/Vol]Ordered By: Roxane Bills on 12-26-2024 Eosinophils (Bld) [#/Vol]N/AFAvita Health System Galion HospitalEosinophils/100 WBC Auto (Bld)Ordered By: Roxane Bills on 06-14-1398Orikqjbvuut/100 WBC (Bld)N/A Mercy HealthEosinophils/100 leukocytes in Blood by Manual countOrdered By: Roxane Bills on 04-94-0705Flakhwjbwot/100 WBC (Bld)29 %High1-3 [facility] HealthComment on above:Performed By: #### CMP, DIFF CBC ####[address] [facility] Erythrocyte distribution width [Ratio] by Automated countOrdered By: Roxane Bills on 12-65-1324Nevwbznwbkg distribution width (RBC) [Ratio]15.3 %Whuidd57.9-15.3 [facility] HealthComment on above:Performed By: #### CMP, DIFF CBC ####[address] [address] [facility] Erythrocyte morphology finding [Identifier] in BloodOrdered By: Roxane Bills on 16-64-7728SDV morphology finding Nom (Bld)NormalNormalNormalMercy HealthComment on above:Performed By: #### CMP, DIFF CBC ####[address] USAErythrocytes [#/volume] in Blood by Automated countOrdered By: Roxane Sanju on 69-36-5724FUT (Bld) [#/Vol]4.16 10*6/uLNormal3.60-5.00Mercy HealthComment on above:Performed By: #### CMP, DIFF CBC ####[address] [place] [address] USAGlomerular filtration rate [Volume Rate/Area] in Serum, Plasma or Blood by CreatinineOrdered By: Roxane Bills on 14-33-9776Swgpwueukx filtration rate [Volume Rate/Area] in Serum, Plasma or Blood by Rbehebeixe77.622 mL/MinMercy HealthGlucose [Mass/volume] in Serum or PlasmaOrdered By: Roxane Bills on 84-52-8875Xjthkkp [Mass/Vol]82 mg/kVVykekz72-488WgwasxgyaMercy HealthComment on above: Result Comment: Random Glucose Reference Range is dependent on time and content of last meal. Glucose of more than 200 mg/dL in a nonstressed, ambulatory subject supports the diagnosis of Diabetes Mellitus. ADA recommended reference rangePerformed By: #### CMP, DIFF CBC ####[address] USAHematocrit [Volume Fraction] of Blood by Automated countOrdered By: Roxane Bills on 72-83-3220Wcikripurs (Bld) [Volume fraction]37.0 %Wmwzbb81.0-46.4FAvita Health System Galion HospitalComment on above: Performed By: #### CMP, DIFF CBC ####[address] [address] USAHemoglobin [Mass/volume] in BloodOrdered By: Roxane Bills on 73-40-8083Wettcguitd (Bld) [Mass/Vol]12.0 g/kEPpmejx64.8-15.4FAvita Health System Galion HospitalComment on above:Performed By: #### CMP, DIFF CBC ####[address] [place] Leukocytes [#/volume] corrected for nucleated erythrocytes in Blood by Automated counOrdered By: Roxane Bills on 47-22-5689XDP corrected for nucl RBC Auto (Bld) [#/Vol]2.8 10*3/uLLow3.8-11.6FAvita Health System Galion HospitalLeukocytes [#/volume] in Blood by Automated countOrdered By: Roxane Bills on 09-85-4328BCO (Bld) [#/Vol]2.8 10*3/uLLow3.8-11.6FAvita Health System Galion HospitalComment on above:Performed By: #### CMP, DIFF CBC ####[facility] [address] [place] [address] USALymphocytes Auto (Bld) [#/Vol]Ordered By: Roxane Bills on 93-10-2178Csugsrzlcfb (Bld) [#/Vol]N/[facility] Lymphocytes/100 WBC Auto (Bld)Ordered By: Roxane Bills on 35-88-4728Rwlimyjtxgx/100 WBC (Bld)N/[facility] Hospitals Health SystemLymphocytes/100 leukocytes in Blood by Manual countOrdered By: Roxane Bills on 69-73-2157Mcwzugfdxfe/100 WBC (Bld)23 %Baeknr36-23KpjoewnumMercy HealthComment on above:Performed By: #### CMP, DIFF CBC ####[address] [place] [address] [facility] [place] [Entitic mass] by Automated countOrdered By: Roxane Bills on 01-05-4444ZIY (RBC) [Entitic mass]28.9 yuWjqnzk98.7-34.3FAvita Health System Galion HospitalComment on above:Performed By: #### CMP, DIFF CBC ####[address] [address] [facility] Auto (RBC) [Mass/Vol]Ordered By: Roxane Bills on 95-52-3385EXCK (RBC) [Mass/Vol] 32.4 g/dL32.0-35.0[facility] HospitalV [Entitic volume] by Automated countOrdered By: Roxane Bills on 81-46-3011DVQ (RBC) [Entitic vol]89.0 fL Qkglip01-628WszhvggvwMercy HealthComment on above:Performed By: #### CMP, DIFF CBC ####[facility] [address] [place] [address] USAMonocytes Auto (Bld) [#/Vol]Ordered By: Roxane Bills on 12-26-2024 Monocytes (Bld) [#/Vol]NSouthview Medical CenterMonocytes/100 WBC Auto (Bld)Ordered By: Roxane Bills on 91-96-2407Qlwtxudkx/100 WBC (Bld)NSouthview Medical CenterMonocytes/100 leukocytes in Blood by Manual countOrdered By: Roxane Bills on 85-71-9676Gjmeuxwlj/100 WBC (Bld)7 %Normal2-11Mercy HealthComment on above:Performed By: #### CMP, DIFF CBC ####[address] [place] [id number] [place] Neutrophils Auto (Bld) [#/Vol]Ordered By: Roxane Bills on 67-07-3003Zdrczujrczw (Bld) [#/Vol]NSouthview Medical CenterNeutrophils/100 WBC Auto (Bld) Ordered By: Roxane Bills on 31-22-3565Oibrxpzrung/100 WBC (Bld)[facility] HospitalNo Panel InformationOrdered By: Roxane Bills on 12-26-2024 25.13Mercy HealthNucleated erythrocytes [Presence] in Blood by Automated countOrdered By: Roxane Bills on 84-44-4045Aszwpcwok RBC Auto Ql (Bld)NSouthview Medical CenterPlatelet adequacy [Presence] in Blood by Light microscopyOrdered By: Roxane Bills on 78-88-3933Ywjychprs LM Ql (Bld) DecreasedNormalMercy HealthPlatelet mean volume [Entitic volume] in Blood by Automated countOrdered By: Roxane Bills on 18-22-0328Kvzvqpvj mean volume (Bld) [Entitic vol]12.0 fLHigh6.3-10.7FAvita Health System Galion HospitalComment on above:Performed By: #### CMP, DIFF CBC ####[address] [address] USAPlatelet morphology finding [Identifier] in BloodOrdered By: Roxane Bills on 32-91-2314Naxdqatd morphology finding Nom (Bld)NormalNoUK HealthcarePlatelets [#/volume] in Blood by Automated countOrdered By: Roxane Bills on 12-26-2024 Platelets (Bld) [#/Vol]4 10*3/uLOff scale mya275-362MrjllorksMercy HealthComment on above:Result Comment: Critical value result called at 1126 on 12/26/24Performed By: #### CMP, DIFF CBC ####[place] [id number] USAPotassium [Moles/volume] in Serum or Plasma Ordered By: Roxane Bills on 68-39-0504Csamjcxqb [Moles/Vol]4.2 mmol/LNormal3.5-5.1 Mercy HealthComment on above:Performed By: #### CMP, DIFF CBC ####[place] [id number] [place] Protein [Mass/volume] in Serum or PlasmaOrdered By: Roxane Bills on 12-26-2024 Protein [Mass/Vol]5.6 g/dLLow6.4-8.9Mercy HealthComment on above:Performed By: #### CMP, DIFF CBC ####[place] [id number] USASegmented neutrophils/100 leukocytes in Blood by Manual countOrdered By: Roxane Bills on 61-57-8094Oralcatpu neutrophils/100 WBC (Bld)36 %Btj74-15TbvyzgqpjMercy HealthComment on above:Performed By: #### CMP, DIFF CBC ####[place] [id number] USASerum globulin measurement by calculation (mass/volume)Ordered By: Roxane Bills on 15-75-1475Tuydrxie (S) [Mass/Vol]2.5 g/dLNoUK HealthcareComment on above:Performed By: #### CMP, DIFF CBC ####[address] [address] USASerum or plasma albumin/globulin mass ratioOrdered By: Roxane Bills on 97-22-5063Zlafgre/Globulin [Mass ratio]1.2 {ratio}NormalMercy HealthComment on above: Performed By: #### CMP, DIFF CBC ####[address] [address] USASerum or plasma anion gap determinationOrdered By: Roxane Bills on 66-02-5884Drbsr gap [Moles/Vol]11.1 mmol/LNormal6.0-15.0Mercy HealthComment on above:Performed By: #### CMP, DIFF CBC ####[address] [address] USASodium [Moles/volume] in Serum or PlasmaOrdered By: Roxane Bills on 08-53-4197Nekgtv [Moles/Vol]136 mmol/ICpqycb280-479FsgiqxfpxMercy HealthComment on above:Performed By: #### CMP, DIFF CBC ####[address] [address] USAUrea nitrogen [Mass/volume] in Serum or Plasma Ordered By: Roxane Bills on 48-78-4949Nthl nitrogen [Mass/Vol]32 mg/dLHigh7-25 Mercy HealthComment on above:Performed By: #### CMP, DIFF CBC ####[address] [address] [place] Variant lymphocytes/100 WBC Manual cnt (Bld)Ordered By: Roxane Bills on 12-26-2024 Variant lymphocytes/100 WBC (Bld)2 %0-12[facility] Appearance of UrineOrdered By: Roxane Bills on 55-86-1636Cmehmdacse (U)ClearNormal ClearMercy HealthComment on above:Order Comment: Name Collection Type:: Clean-Voided MidstreamPerformed By: #### UA ####[address] [address] USABilirubin Test strip Ql (U)Ordered By: Roxane Bills on 80-50-3000Calruhtvq Ql (U)NegativeNegative Mercy HealthBlood Cultureon 22-83-3848Yzraxiau identified Cx Nom (Bld)NO GROWTH 5 DAYS PERFORMED BY: [facility] [address] [id number] PATHOLOGIST ROLLER HAND ELAINE CHAUDHARY M.D.[facility] Physician GroupComment on above: Performed By: #### CUBLD ####[address] [address] USABacteria identified Cx Nom (Bld)NO GROWTH 5 DAYS PERFORMED BY: [facility] [address] [id number] PATHOLOGIST ROLLER HAND ELAINE CHAUDHARY M.D.[facility] Physician GroupComment on above: Performed By: #### CUBLD ####[address] [address] USAColor of Urine by AutoOrdered By: Roxane Bills on 67-55-1558Beuoh (U)Light-yellowNormalYSuburban Community [facility] Comment on above:Order Comment: Name Collection Type:: Clean-Voided Midstream Performed By: #### UA ####[address] [address] USAGlucose [Mass/volume] in Urine by Test stripOrdered By: Roxane Bills on 60-92-6462Jnhgoyp Test strip (U) [Mass/Vol]>=1000 mg/dLHigh NormalMercy HealthHemoglobin Test strip Ql (U)Ordered By: Roxane Bills on 95-44-4901Gttzjhxbfl Ql (U)NegativeNegativeMercy HealthKetones [Presence] in Urine by Test stripOrdered By: Roxane Bills on 89-74-4669Jlnuzru Ql (U)NegativeNormalNegMiami Valley Hospital Comment on above:Order Comment: Name Collection Type:: Clean-Voided Midstream Performed By: #### UA ####[address] [address] USALeukocyte esterase [Presence] in Urine by Test strip Ordered By: Roxane Sanju on 64-13-4039Bvuebcxee esterase Test strip Ql (U)Negative NormalNegMiami Valley HospitalComment on above:Order Comment: Name Collection Type:: Clean-Voided MidstreamPerformed By: #### UA ####[facility] [place] [address] USANitrite Test strip Ql (U)Ordered By: Roxane Bills on 42-37-5638Wwojzsb Ql (U)NegativeNegMiami Valley HospitalNo Panel InformationOrdered By: Roxane Sanju on 12-21-2024 NO GROWTH 5 DAYSMercy HealthNO GROWTH 5 DAYSMercy HealthProtein Test strip (U) [Mass/Vol]Ordered By: Roxane Bills on 94-50-2553Zxhlwvz (U) [Mass/Vol]NegativeNegTriHealthpecific gravity Test strip (U) [Rel density]Ordered By: Roxane Bills on 07-67-6350Fkmaeeyy gravity (U) [Rel density]1.0101.001-1.030Mercy HealthUrinalysison 01-96-9045Nwnjoidet,UrineNegativeNormalNegativeThe [facility] Physician GroupComment on above:Order Comment: Name Collection Type:: Clean-Voided MidstreamPerformed By: #### UA ####[facility] [place] [address] USAGlucose Ql (U)>=NormalNormalThe [facility] Physician GroupComment on above:Order Comment: Name Collection Type:: Clean-Voided MidstreamPerformed By: #### UA ####[facility] [place] [address] USANitrite,UrineNegativeNormalNegativeThe [facility] Physician GroupComment on above:Order Comment: Name Collection Type:: Clean-Voided MidstreamPerformed By: #### UA ####[facility] [place] [address] USAOccult Blood,UrineNegativeNormal NegativeThe [facility] Physician GroupComment on above:Order Comment: Name Collection Type:: Clean-Voided MidstreamResult Comment: PERFORMED BY:[facility] [place], [place] [phone] MEDICAL DIRECTORELAINE CHAUDHARY M.D.Performed By: #### UA ####[facility] [place] [address] USAProtein,UrineNegative NormalNegativeThe [facility] Physician GroupComment on above:Order Comment: Name Collection Type:: Clean-Voided MidstreamPerformed By: #### UA ####[address] [place] [address] USASpecificy Valley Center,Urine1.176Tbcshc9.001-1.030The [facility] Physician GroupComment on above:Order Comment: Name Collection Type:: Clean-Voided MidstreamPerformed By: #### UA ####[address] [address] USAUrobilinogen,UrineNormalNormalNormalThe [facility] Physician GroupComment on above:Order Comment: Name Collection Type:: Clean-Voided MidstreamPerformed By: #### UA ####[address] [address] USAUrinalysis, manual onlyon 32-55-0767Zldxaxenxr (U)ClearClearNOMS Healthcare BILIRUBIN,URINENegativeNegativeNOMS HealthcareColor (U)Light-YellowYellowNOMS HealthcareGlucose Ql (U)mg/dLNormal mg/dLNOMS HealthcareKetones Ql (U)Negative NegativeNOMS HealthcareLeukocyte esterase Test strip Ql (U)NegativeNegativeNOMS HealthcareNITRITE,URINENegativeNegativeNOMS HealthcareOCCULT BLOOD,URINENegative NegativeNOMS HealthcarepH (U)5.5 [pH]5.0 - 9.0NOMS HealthcarePROTEIN,URINE NegativeNegative mg/dLNOMS HealthcareSPECIFICY GRAVITY,URINE1.011.001 - 1.030 NOMS HealthcareUROBILINOGEN,URINENormalNormal mg/dLNOMS HealthcareName Collection Type:: Clean-Voided MidstreamFIRELANDSNOMS HealthcareUrobilinogen Test strip (U) [Mass/Vol]Ordered By: Roxane Bills on 99-99-4644Iovquudvsvww (U) [Mass/Vol]Normal mg/dLNormalMercy HealthXR chest 2V*on 84-92-3147NC chest 2V*NormalThe [facility] Physician GrouppH of Urine by Test stripOrdered By: Roxane Bills on 38-39-1695gY (U)5.5 [pH]Normal5.0-9.0Mercy HealthComment on above:Order Comment: Name Collection Type:: Clean-Voided MidstreamPerformed By: #### UA ####[place] [id number] [facility] CENTERAlanine aminotransferase [Enzymatic activity/volume] in Serum or PlasmaOrdered By: Roxane Bills on 60-77-6592UUQ [Catalytic activity/Vol]86 U/LHigh7-52Mercy HealthComment on above:Performed By: #### CBC, CMP ####[place] [id number] USAAlbumin [Mass/volume] in Serum or Plasma by Bromocresol green (BCG) dye binding methoOrdered By: Roxane Bills on 12-19-2024 Albumin BCG dye [Mass/Vol]3.9 g/dL3.5-5.7FAvita Health System Galion Hospital Alkaline phosphatase [Enzymatic activity/volume] in Serum or PlasmaOrdered By: Roxane Bills on 37-23-3402GPY [Catalytic activity/Vol]145 U/VQjof66-509ZagfavdaeMercy HealthComment on above:Performed By: #### CBC, CMP ####[place] [id number] [facility] Aspartate aminotransferase [Enzymatic activity/volume] in Serum or PlasmaOrdered By: Roxane Bills on 97-36-3315CSW [Catalytic activity/Vol]35 U/IEgenpp81-36 Mercy HealthComment on above:Performed By: #### CBC, CMP ####[place] [id number] [facility] Basophils [#/volume] in Blood by Automated countOrdered By: Roxane Bills on 15-02-8072Fppcbylft (Bld) [#/Vol]0.1 10*3/uLNormal0.0-0.2FAvita Health System Galion HospitalComment on above:Result Comment: PERFORMED BY:[address] [place] [place], [place] [phone] MEDICAL DIRECTORELAINE CHAUDHARY M.D.Performed By: #### CBC, CMP ####[address] [place] [address] USABasophils/100 leukocytes in Blood by Automated countOrdered By: Roxane Bills on 74-10-5636Youmyrhxb/100 WBC (Bld)1.4 %Normal.Mercy HealthComment on above:Performed By: #### CBC, CMP ####[place] [id number] USABilirubin.total [Mass/volume] in Serum or PlasmaOrdered By: Roxane Bills on 10-55-6431Jvhpvacgm [Mass/Vol]0.4 mg/dLNormal0.3-1.0Mercy HealthComment on above:Performed By: #### CBC, CMP ####[address] [address] USACBC W Auto Differential panel (Bld)on 99-48-6705Pzbvsshof (Bld) [#/Vol]0.1 10*3/uL0.0 - 0.2 10*3/uLNOMS HealthcareBasophils/100 WBC Manual cnt (Syn fld)1.4 %.NOMS HealthcareEosinophils (Bld) [#/Vol]0.3 10*3/uL0.0 - 0.45 10*3/uLNOMS Healthcare Eosinophils/100 WBC Manual cnt (Syn fld)5.3 %.NOMS HealthcareErythrocyte distribution width (RBC) [Ratio]15.3 %11.9 - 15.3 %NOMS HealthcareHematocrit (Bld) [Volume fraction]42 %34.0 - 46.4 %NOMS HealthcareHemoglobin (Bld) [Mass/Vol]13.8 g/dL11.8 - 15.4 g/dLNOMS HealthcareInterpretation and review of laboratory resultsAbnormalNOMS HealthcareLymphocytes (Bld) [#/Vol]0.6 10*3/uLLow 1.00 - 4.8 10*3/uLNOMS HealthcareLymphocytes/100 WBC Manual cnt (Syn fld)9.7 %. [facility] CenterH (RBC) [Entitic mass]29.1 pg24.7 - 34.3 pgCameron Regional Medical CenterHC (RBC) [Mass/Vol]32.8 g/dL32.0 - 35.0 g/dLUniversity of Missouri Health CareMCV (RBC) [Entitic vol] 88.8 fL80 - 100 fLNOMS HealthcareMonocytes (Bld) [#/Vol]0.3 10*3/uL0.0 - 0.8 10*3/uLNOMS HealthcareMonocytes+Macrophages/100 WBC Manual cnt (Syn fld)5.2 %. [facility] HealthcareNeutrophils (Bld) [#/Vol]5.2 10*3/uL1.8 - 7.7 10*3/uLNOMS HealthcareNeutrophils/100 WBC Manual cnt (Syn fld)78.4 %.[facility] HealthcareNRBC0.3 /100{WBC}0 - 0.5 /100{WBC}[facility] HealthcarePlatelet mean volume (Bld) [Entitic vol]9 fL6.3 - 10.7 fLNOMS HealthcarePlatelets (Bld) [#/Vol]130 10*3/fPXcc694 - 450 10*3/uLNOMS HealthcareRBC LM.HPF (Urine sed) [#/Area]4.73 10*6/uL3.60 - 5.00 10*6/uLNOMS HealthcareWBC (Bld) [#/Vol]6.6 10*3/uL3.8 - 11.6 10*3/uLNOMS HealthcareWBC LM.HPF (Urine sed) [#/Area]6.6 [CFU]/mL3.8 - 11.6 [CFU]/mLNOMS HealthcareBEAVER VALLEY HOSPITAL HealthcareCalcium [Mass/volume] in Serum or PlasmaOrdered By: Roxane Bills on 47-46-4483Kashtdw [Mass/Vol]8.8 mg/dLNormal8.6-10.3FAvita Health System Galion HospitalComment on above:Performed By: #### CBC, CMP ####[place] [address] USACarbon dioxide, total [Moles/volume] in Serum or PlasmaOrdered By: Roxane Sanju on 26-07-4102LU4 [Moles/Vol]37.0 mmol/LHigh21.0-31.0Mercy HealthComment on above:Performed By: #### CBC, CMP ####[place] [address] USAChloride [Moles/volume] in Serum or PlasmaOrdered By: Roxane Bills on 84-60-7147Cwluwwkc [Moles/Vol]94 mmol/GHdf54-689MjfvxhvvjMercy HealthComment on above:Performed By: #### CBC, CMP ####[address] Complete Blood Count Auto Diffon 91-87-7651Qhlo Corpuscular HGB Conc32.8 g/dL Mafwtg80.0-35.0The [facility] Physician [facility] HospitalComment on above:Performed By: #### CBC, CMP ####[place] [address] USANRBC%0.3 /100{WBC}Normal0-0.5The [facility] Physician [facility] HospitalComment on above: Performed By: #### CBC, CMP ####[address] Blood Count6.6 [CFU]/mLNormal3.8-11.6The [facility] Physician GroupComment on above:Performed By: #### CBC, CMP ####[place] [id number] [facility] Comprehensive Metabolic Panelon 78-61-3975Rmhmuve [Mass/Vol]3.9 g/dLNormal 3.5-5.7The [facility] Physician [facility] HospitalComment on above:Performed By: #### CBC, CMP ####[place] [id number] [facility] Creatinine Clr Calc Klovyuox11.05NormalThe [facility] Hospital Physician GroupComment on above:Result Comment: PERFORMED BY:[facility] [place] [address] [place], [place] [phone] MEDICAL DIRECTORELAINE CHAUDHARY M.D.Performed By: #### CBC, CMP ####[facility] [place] [address] USAGFR/1.73 sq M.predicted MDRD (S/P/Bld) [Vol rate/Area]36.440 mL/min/{1.73_m2}NormalThe [facility] Hospital Physician GroupComment on above:Performed By: #### CBC, CMP ####[facility] [place] [address] USAComprehensive metabolic panelon 47-85-0947Jazrnhm [Mass/Vol]3.9 g/dL3.5 - 5.7 g/dLNOCT HealthcareAlbumin/Globulin [Mass ratio]1.2 {ratio}NOMS HealthcareALP [Catalytic activity/Vol]145 U/LHigh34 - 104 U/LNOMS HealthcareALT [Catalytic activity/Vol]86 U/LHigh7 - 52 U/LNOMS HealthcareAnion gap [Moles/Vol]12.3 mmol/L6.0 - 15.0NOCT HealthcareAST [Catalytic activity/Vol] 35 U/L13 - 39 U/LNOMS HealthcareBilirubin [Mass/Vol]0.4 mg/dL0.3 - 1.0 mg/dLNOCT HealthcareCalcium [Mass/Vol]8.8 mg/dL8.6 - 10.3 mg/dLNOCT HealthcareChloride [Moles/Vol]94 mmol/LLow98 - 107 mmol/LNOMS HealthcareCO2 [Moles/Vol]37 mmol/L High21.0 - 31.0 mmol/LNOMS HealthcareCreatinine (U) [Mass/Vol]1.56 mg/dLHigh0.60 - 1.20 mg/dLNOCT HealthcareCREATININE CLR CALC GZTPFOVR94.05N[facility] Healthcare GFR/1.73 sq M.predicted MDRD (S/P/Bld) [Vol rate/Area]36.44 mL/min/{1.73_m2}NOMS HealthcareGlobulin (S) [Mass/Vol]3.3 g/dLNOMS HealthcareGlucose [Mass/Vol]168 mg/lWIbuu34 - 100 mg/dLBEAVER VALLEY HOSPITAL HealthcareComment on above:Random Glucose Reference Range is dependent on time and content of last meal. Glucose of more than 200 mg/dL in a nonstressed, ambulatory subject supports the diagnosis of Diabetes Mellitus. ADA recommended reference range Interpretation and review of laboratory resultsAbnormalNOMS HealthcarePotassium [Moles/Vol]4.3 mmol/L3.5 - 5.1 mmol/LNOMS HealthcareProtein [Mass/Vol]7.2 g/dL 6.4 - 8.9 g/dLNOCT HealthcareSodium [Moles/Vol]139 mmol/L136 - 145 mmol/LNOMS HealthcareUrea nitrogen [Mass/Vol]20 mg/dL7 - 25 mg/dLJefferson Memorial Hospital HealthcareCreatinine [Mass/volume] in Serum or PlasmaOrdered By: Roxane Bills on 63-16-1491Utupjfbond [Mass/Vol]1.56 mg/dLHigh0.60-1.20Mercy HealthComment on above:Performed By: #### CBC, CMP ####[place] [address] USAEosinophils [#/volume] in Blood by Automated countOrdered By: Roxane Bills on 85-56-2817Meqmvvusuzr (Bld) [#/Vol]0.3 10*3/uLNormal0.0-0.45Mercy HealthComhenry ford [facility] on above:Performed By: #### CBC, CMP ####[place] [id number] USAEosinophils/100 leukocytes in Blood by Automated countOrdered By: Roxane Bills on 75-20-9144Tzwiesbdbmp/100 WBC (Bld)5.3 %Normal. Mercy HealthComment on above:Performed By: #### CBC, CMP ####[place] [id number] [place] Erythrocyte distribution width [Ratio] by Automated countOrdered By: Roxane Bills on 61-43-9305Faatfbhbjvl distribution width (RBC) [Ratio]15.3 %Nusoud99.9-15.3 Mercy HealthComment on above:Performed By: #### CBC, CMP ####[address] [place] [address] [place] Erythrocytes [#/volume] in Blood by Automated countOrdered By: Roxane Bills on 48-77-1059LJQ (Bld) [#/Vol]4.73 10*6/uLNormal3.60-5.00Mercy HealthComment on above:Performed By: #### CBC, CMP ####[address] [address] USAGlomerular filtration rate [Volume Rate/Area] in Serum, Plasma or Blood by CreatinineOrdered By: Roxane Bills on 46-88-3575Abgbkurvuk filtration rate [Volume Rate/Area] in Serum, Plasma or Blood by Oufeuqfvji49.440 mL/MinMercy HealthGlucose [Mass/volume] in Serum or PlasmaOrdered By: Roxane Bills on 54-84-8585Jbsumho [Mass/Vol]168 mg/kCXwlm45-740BawjegwgjMercy HealthComment on above: Result Comment: Random Glucose Reference Range is dependent on time and content of last meal. Glucose of more than 200 mg/dL in a nonstressed, ambulatory subject supports the diagnosis of Diabetes Mellitus. ADA recommended reference rangePerformed By: #### CBC, CMP ####[address] [place] [address] USAHematocrit [Volume Fraction] of Blood by Automated countOrdered By: Roxane Bills on 98-44-5589Npyivmdmxq (Bld) [Volume fraction]42.0 % Shlbps13.0-46.4FAvita Health System Galion HospitalComment on above:Performed By: #### CBC, CMP ####[address] [address] USAHemoglobin [Mass/volume] in BloodOrdered By: Roxane Bills on 12-19-2024 Hemoglobin (Bld) [Mass/Vol]13.8 g/vAAnmzza35.8-15.4FAvita Health System Galion HospitalComment on above:Performed By: #### CBC, CMP ####[address] [address] USALeukocytes [#/volume] corrected for nucleated erythrocytes in Blood by Automated counOrdered By: Roxane Bills on 97-83-0347HCR corrected for nucl RBC Auto (Bld) [#/Vol]6.6 10*3/uL 3.8-11.6FAvita Health System Galion HospitalLeukocytes [#/volume] in Blood by Automated countOrdered By: Roxane Bills on 49-79-2820BHD (Bld) [#/Vol]6.6 10*3/uL Normal3.8-11.6FAvita Health System Galion HospitalComment on above:Performed By: #### CBC, CMP ####[place] [id number] USALymphocytes [#/volume] in Blood by Automated countOrdered By: Roxane Bills on 96-89-7711Vxmgcwaxloh (Bld) [#/Vol]0.6 10*3/uLLow1.00-4.8Mercy HealthComment on above:Performed By: #### CBC, CMP ####[place] [id number] USALymphocytes/100 leukocytes in Blood by Automated countOrdered By: Roxane Bills on 12-19-2024 Lymphocytes/100 WBC (Bld)9.7 %Normal.Mercy HealthComment on above:Performed By: #### CBC, CMP ####[address] [address] [facility] [place] [Entitic mass] by Automated countOrdered By: Roxane Bills on 23-70-7357XSL (RBC) [Entitic mass]29.1 tqPlykly68.7-34.3FAvita Health System Galion HospitalComment on above:Performed By: #### CBC, CMP ####[place] [id number] [facility] Auto (RBC) [Mass/Vol]Ordered By: Roxane Bills on 58-88-4961XNJH (RBC) [Mass/Vol] 32.8 g/dL32.0-35.0Mercy HealthMCV [Entitic volume] by Automated countOrdered By: Roxane Bills on 62-73-9794KQS (RBC) [Entitic vol]88.8 fL Hxtnhi58-458MtxhdqvyaMercy HealthComment on above:Performed By: #### CBC, CMP ####[address] [address] USAMonocytes [#/volume] in Blood by Automated countOrdered By: Roxane Bills on 22-88-6886Ccvzgbkbc (Bld) [#/Vol]0.3 10*3/uLNormal0.0-0.8Mercy HealthComment on above:Performed By: #### CBC, CMP ####[place] [id number] USAMonocytes/100 leukocytes in Blood by Automated countOrdered By: Roxane Bills on 12-19-2024 Monocytes/100 WBC (Bld)5.2 %Normal.Mercy HealthComment on above:Performed By: #### CBC, CMP ####[address] [address] USANeutrophils [#/volume] in Blood by Automated count Ordered By: Roxane Bills on 08-70-1121Qpdjymlirix (Bld) [#/Vol]5.2 10*3/uLNormal 1.8-7.7FAvita Health System Galion HospitalComment on above:Performed By: #### CBC, CMP ####[place] [id number] [place] Neutrophils/100 leukocytes in Blood by Automated countOrdered By: Roxane Bills on 52-07-9912Wcqmoyroozz/100 WBC (Bld)78.4 %Normal.Mercy HealthComment on above:Performed By: #### CBC, CMP ####[address] [address] USANo Panel InformationOrdered By: Roxane Bills on 88-83-736256.05Mercy HealthNucleated erythrocytes [Presence] in Blood by Automated countOrdered By: Roxane Bills on 63-01-2766Drylrpqxx RBC Auto Ql (Bld)0.3 /100{WBC}0-0.5FAvita Health System Galion HospitalPlatelet mean volume [Entitic volume] in Blood by Automated count Ordered By: Roxane Bills on 30-08-0721Ncoebvvh mean volume (Bld) [Entitic vol]9.0 fLNormal6.3-10.7FAvita Health System Galion HospitalComment on above:Performed By: #### CBC, CMP ####[place] [id number] USAPlatelets [#/volume] in Blood by Automated countOrdered By: Roxane Bills on 50-77-8660Srqahcwof (Bld) [#/Vol]130 10*3/wRTnu214-865AhxpdrtmbMercy HealthComment on above:Performed By: #### CBC, CMP ####[place] [address] USAPotassium [Moles/volume] in Serum or PlasmaOrdered By: Roaxne Bills on 32-31-6478Obqvyjcqf [Moles/Vol]4.3 mmol/LNormal3.5-5.1FAvita Health System Galion HospitalComment on above:Performed By: #### CBC, CMP ####[address] [address] USAProtein [Mass/volume] in Serum or PlasmaOrdered By: Roxane Bills on 58-55-4094Evjwaws [Mass/Vol]7.2 g/dLNormal6.4-8.9Mercy HealthComment on above:Performed By: #### CBC, CMP ####[address] [address] USASerum globulin measurement by calculation (mass/volume)Ordered By: Roxane Bills on 12-19-2024 Globulin (S) [Mass/Vol]3.3 g/dLNormalMercy HealthComment on above:Performed By: #### CBC, CMP ####[address] [address] USASerum or plasma albumin/globulin mass ratioOrdered By: Roxane Bills on 45-07-1008Wbiqktf/Globulin [Mass ratio]1.2 {ratio}Normal Mercy HealthComment on above:Performed By: #### CBC, CMP ####[place] [id number] USASerum or plasma anion gap determinationOrdered By: Roxane Bills on 16-46-5000Qvmlt gap [Moles/Vol]12.3 mmol/LNormal6.0-15.0Mercy HealthComment on above:Performed By: #### CBC, CMP ####[place] [id number] USASodium [Moles/volume] in Serum or PlasmaOrdered By: Roxane Bills on 64-27-3748Sraext [Moles/Vol]139 mmol/NNwjboj214-649YdmxyfiwoMercy HealthComment on above:Performed By: #### CBC, CMP ####[place] [address] USAUrea nitrogen [Mass/volume] in Serum or PlasmaOrdered By: Roxane Bills on 17-70-4792Xjtk nitrogen [Mass/Vol]20 mg/dLNormal7-25Mercy HealthComment on above:Performed By: #### CBC, CMP ####[place] [id number] USAAnisocytosis [Presence] in Blood by Light microscopyOrdered By: Roxane Bills on 76-63-2129Cueadkzccocv Ql (Bld)SlightNormal Mercy HealthComment on above:Performed By: #### SCAN CBC, CMP ####[address] [address] [place] Comprehensive Metabolic Panelon 78-28-7744Iubwtij [Mass/Vol]3.7 g/dLNormal 3.5-5.7The [facility] Physician GroupComment on above:Performed By: #### SCAN CBC, CMP ####[place] [id number] USAAlbumin/Globulin [Mass ratio]1.3 {ratio}NormalThe [facility] Physician Group Comment on above:Performed By: #### SCAN CBC, CMP ####[address] [place] [address] USAALP [Catalytic activity/Vol]144 U/L Jnsq64-555Dxz [facility] Physician GroupComment on above:Performed By: #### SCAN CBC, CMP ####[place] [place] [address] [place]ALT [Catalytic activity/Vol]102 U/LHigh7-52The [facility]ician [facility] Comment on above:Performed By: #### SCAN CBC, CMP ####[place] [address] [place] [address] USAAnion gap [Moles/Vol]10.0 mmol/LNormal 6.0-15.0The [facility] Physician GroupComment on above:Performed By: #### SCAN CBC, CMP ####[address] [address] USAAST [Catalytic activity/Vol]61 U/[id number] [facility] Hospital Comment on above:Performed By: #### SCAN CBC, CMP ####[address] [address] USABilirubin [Mass/Vol]0.3 mg/dLNormal 0.3-1.0The [facility] Physician GroupComment on above:Performed By: #### SCAN CBC, CMP ####[address] [address] USACalcium [Mass/Vol]8.6 mg/dLNormal8.6-10.3The [facility] Physician GroupComment on above:Performed By: #### SCAN CBC, CMP ####[address] [address] USAChloride [Moles/Vol]100 mmol/LNormal 98-107The [facility] Physician GroupComment on above:Performed By: #### SCAN CBC, CMP ####[address] [address] [place] CO2 [Moles/Vol]34.9 mmol/LHigh21.0-31.0The [facility] Physician GroupComment on above:Performed By: #### SCAN CBC, CMP ####[address] [address] USACreatinine [Mass/Vol]1.28 mg/dLHigh0.60-1.20 The [facility] Physician GroupComment on above:Performed By: #### SCAN CBC, CMP ####[address] [address] [place] Creatinine Clr Calc Nqnsctua69.94NoUNC Hospitals Hills[facility] Campus Physician GroupComment on above:Result Comment: PERFORMED BY:[address] [place], [place] [phone] MEDICAL LEESA CHAUDHARY M.D.Performed By: #### SCAN CBC, CMP ####[address] [address] USAGFR/1.73 sq M.predicted MDRD (S/P/Bld) [Vol rate/Area]46.203 mL/min/{1.73_m2}NormalThe [facility] Physician GroupComment on above:Performed By: #### SCAN CBC, CMP ####[address] [address] USAGlobulin (S) [Mass/Vol]2.8 g/dLJohns Hopkins All Children's Hospital Physician [facility] Watkins Memorial HospitalComment on above:Performed By: #### SCAN CBC, CMP ####[address] [address] USAGlucose [Mass/Vol]182 mg/vPYrpz03-816Rqh [facility] Physician GroupComment on above: Result Comment: Random Glucose Reference Range is dependent on time and content of last meal. Glucose of more than 200 mg/dL in a nonstressed, ambulatory subject supports the diagnosis of Diabetes Mellitus. ADA recommended reference rangePerformed By: #### SCAN CBC, CMP ####[address] [address] USAPotassium [Moles/Vol]4.9 mmol/LNormal3.5-5.1 The [facility] Physician GroupComment on above:Performed By: #### SCAN CBC, CMP ####[address] [address] USAProtein [Mass/Vol]6.5 g/dLNormal6.4-8.9The [facility] Physician [facility] Watkins [facility] HospitalComment on above: Performed By: #### SCAN CBC, CMP ####[facility] [address] [place] [address] USASodium [Moles/Vol]140 mmol/JErkefj650-448Ewc [facility] Physician [facility] Memorial HospitalComment on above:Performed By: #### SCAN CBC, CMP ####[facility] [address] [place] [address] USAUrea nitrogen [Mass/Vol]22 mg/dLNormal7-25The [facility] Physician [facility] Watkins Memorial HospitalComment on above:Performed By: #### SCAN CBC, CMP ####[facility] [place] [address] USAComprehensive metabolic panelon 12-13-2024 Albumin [Mass/Vol]3.7 g/dL3.5 - 5.7 g/dLNOCT HealthcareAlbumin/Globulin [Mass ratio]1.3 {ratio}[facility] HealthcareALP [Catalytic activity/Vol]144 U/LHigh34 - 104 U/LNOMS HealthcareALT [Catalytic activity/Vol]102 U/LHigh7 - 52 U/LNOMS HealthcareAnion gap [Moles/Vol]10 mmol/L6.0 - 15.0NOCT HealthcareAST [Catalytic activity/Vol]61 U/LHigh13 - 39 U/LNOMS HealthcareBilirubin [Mass/Vol]0.3 mg/dL 0.3 - 1.0 mg/dLNOCT HealthcareCalcium [Mass/Vol]8.6 mg/dL8.6 - 10.3 mg/dLNOCT HealthcareChloride [Moles/Vol]100 mmol/L98 - 107 mmol/LNOMS HealthcareCO2 [Moles/Vol]34.9 mmol/LHigh21.0 - 31.0 mmol/LNOMS HealthcareCreatinine (U) [Mass/Vol]1.28 mg/dLHigh0.60 - 1.20 mg/dLNOCT HealthcareCREATININE CLR CALC OSJZSRHU63.94NOMS HealthcareGFR/1.73 sq M.predicted MDRD (S/P/Bld) [Vol rate/Area]46.203 mL/min/{1.73_m2}[facility] HealthcareGlobulin (S) [Mass/Vol]2.8 g/dL [facility] HealthcareGlucose [Mass/Vol]182 mg/iLApsl50 - 100 mg/dLUniversity of [facility] Comment on above:Random Glucose Reference Range is dependent on time and content of last meal. Glucose of more than 200 mg/dL in a nonstressed, ambulatory subject supports the diagnosis of Diabetes Mellitus. ADA recommended reference range Interpretation and review of laboratory resultsAbnormalNOMS HealthcarePotassium [Moles/Vol]4.9 mmol/L3.5 - 5.1 mmol/LNOMS HealthcareProtein [Mass/Vol]6.5 g/dL 6.4 - 8.9 g/dLNOHawthorn Children's Psychiatric HospitalSodium [Moles/Vol]140 mmol/L136 - 145 mmol/LNOMS HealthcareUrea nitrogen [Mass/Vol]22 mg/dL7 - 25 mg/dLUniversity of Missouri Health CareNOHawthorn Children's Psychiatric HospitalErythrocyte morphology finding [Identifier] in BloodOrdered By: Roxane Bills on 55-90-9321SXO morphology finding Nom (Bld)N/[facility] Health SystemMicrocytes LM Ql (Bld)Ordered By: Roxane Bills on 18-21-6498Ferwyjjmoq Ql (Bld)[facility] NorthOvalocytes [Presence] in Blood by Light microscopyOrdered By: Roxane Bills on 34-50-6731Tuebpnrtlg LM Ql (Bld)[facility] CampusPlatelet adequacy [Presence] in Blood by Light microscopyOrdered By: Roxane Bills on 92-09-9070Ogllqcjog LM Ql (Bld)NormalNormal [facility] HealthPlatelet morphology finding [Identifier] in BloodOrdered By: Roxane Bills on 83-73-1238Fltjtkpl morphology finding Nom (Bld) NormalSalem City HospitalPolychromasia [Presence] in Blood by Light microscopyOrdered By: Roxane Bills on 87-60-8229Gbcgzqgyiiqkz LM Ql (Bld) [facility] Hospitalcan and CBCon 35-36-6674Dpmdrzeut (Bld) [#/Vol]0.2 10*3/uLNormal0.0-0.2The [facility] Physician GroupComment on above: Performed By: #### SCAN CBC, CMP ####[address] [address] USABasophils/100 WBC (Bld)3.7 %Normal.The [facility] Physician GroupComment on above:Performed By: #### SCAN CBC, CMP ####[address] [address] USAEosinophils (Bld) [#/Vol]0.2 10*3/uLNormal0.0-0.45The [facility] Physician GroupComment on above: Performed By: #### SCAN CBC, CMP ####[address] [address] USAEosinophils/100 WBC (Bld)3.2 %Normal.The [facility] Physician GroupComment on above:Performed By: #### SCAN CBC, CMP ####[place] [id number] USAErythrocyte distribution width (RBC) [Ratio]15.6 %High11.9-15.3The [facility] Comment on above:Performed By: #### SCAN CBC, CMP ####[place] [address] USAHematocrit (Bld) [Volume fraction] 42.1 %Ommcvv48.0-46.4The [facility] Physician GroupComment on above:Performed By: #### SCAN CBC, CMP ####[place] [address] USAHemoglobin (Bld) [Mass/Vol]13.6 g/hDBpcmzq81.8-15.4The [facility] Physician GroupComment on above:Performed By: #### SCAN CBC, CMP ####[address] [address] USALymphocytes (Bld) [#/Vol]1.4 10*3/uLNormal1.00-4.8The [facility] Physician GroupComment on above: Performed By: #### SCAN CBC, CMP ####[address] [address] USALymphocytes/100 WBC (Bld)24.1 %Normal.The [facility] Physician GroupComment on above:Performed By: #### SCAN CBC, CMP ####[address]H (RBC) [Entitic mass]28.9 pkZxsdpn45.7-34.3The [facility] Physician GroupComment on above: Performed By: #### SCAN CBC, CMP ####[address]V (RBC) [Entitic vol]89.8 kIXzsqei28-896Nln [facility] Physician GroupComment on above:Performed By: #### SCAN CBC, CMP ####[place] [address] USAMean Corpuscular HGB Conc32.2 g/nZWbzski10.0-35.0The [facility] Physician GroupComment on above:Performed By: #### SCAN CBC, CMP ####[place] [address] USAMicrocytosisSlightNormalThe [facility] Physician GroupComment on above:Performed By: #### SCAN CBC, CMP ####[place] [address] USAMonocytes (Bld) [#/Vol]1.6 10*3/uLHigh0.0-0.8The [facility] Physician GroupComment on above: Performed By: #### SCAN CBC, CMP ####[place] [address] USAMonocytes/100 WBC (Bld)26.6 %Normal.The [facility] Physician GroupComment on above:Performed By: #### SCAN CBC, CMP ####[place] [address] USANeutrophils (Bld) [#/Vol]2.5 10*3/uLNormal1.8-7.7The [facility] Physician GroupComment on above: Performed By: #### SCAN CBC, CMP ####[place] [address] USANeutrophils/100 WBC (Bld)42.4 %Normal.The [facility] Physician GroupComment on above:Performed By: #### SCAN CBC, CMP ####[address] [address] USANRBC%0.1 /100{WBC} Normal0-0.5The [facility] Physician H[facility] Watkins Memorial HospitalComment on above:Performed By: #### SCAN CBC, CMP ####[address] [address] USAOvalocytesSCritical access hospital Physician GroupComment on above:Performed By: #### SCAN CBC, CMP ####[address] [address] USAPlatelet EstimateNormalNormalNoUNC Hospitals Hillsborough Campus Physician GroupComment on above:Performed By: #### SCAN CBC, CMP ####[address] [address] USAPlatelet mean volume (Bld) [Entitic vol]7.3 fLNormal6.3-10.7The [facility] Physician [facility] Memorial HospitalComment on above:Performed By: #### SCAN CBC, CMP ####[address] [address] USAPlatelet MorphologyNormalNormalJohns Hopkins All Children's Hospital Physician GroupComment on above:Result Comment: PERFORMED BY:[address] [place], [place] [phone] MEDICAL LEESA CHAUDHARY M.D.Performed By: #### SCAN CBC, CMP ####[address] [address] [place] Platelets (Bld) [#/Vol]371 10*3/bDCdowuc841-725Czh [facility] Comment on above:Performed By: #### SCAN CBC, CMP ####[address] [address] USAPolychromasiaSCritical access hospital Physician GroupComment on above:Performed By: #### SCAN CBC, CMP ####[address] [place] [address] USARBC (Bld) [#/Vol]4.69 10*6/uLNormal3.60-5.00The [facility] Physician GroupComment on above:Performed By: #### SCAN CBC, CMP ####[place] [address] [place] [address] USAWBC (Bld) [#/Vol]5.9 10*3/uLNormal3.8-11.6The [facility] Physician GroupComment on above:Performed By: #### SCAN CBC, CMP ####[place] [address] [place] [address] USAWhite Blood Count5.9 [CFU]/mLNormal3.8-11.6The [facility] Physician GroupComment on above:Performed By: #### SCAN CBC, CMP ####[place] [id number] USAPROTEIN ELECTRO, RANDOM URINEon 12-08-2024 ALBUMIN, URINE22.9 %.NOMS NabxpvlqkuIKBBJ-4-CGSLMWKO, URINE5.1 %.[facility] LHKGO-5-HZLJAGMB, URINE26.3 %.NOMS HealthcareBETA GLOBULIN, URINE25.1 %.NOMS HealthcareGAMMA GLOBULIN, URINE20.6 %.[facility]OMS HealthcareM-SPIKE %8.1 %Not Observed NOMS HealthcarePLEASE NOTE:Comment.NOMS HealthcareComment on above:Protein electrophoresis scan will follow via computer, mail, or green building engineer delivery. Performed at: [address] [id number] [employer] Referral Clerk: Jhoan Rich PhD, Phone: [phone] Protein (U) [Mass/Vol]6.3 mg/dLNot Estab.[facility] HealthcareNOHawthorn Children's Psychiatric Hospital24 hour urine albumin/total protein ratio by electrophoresisOrdered By: Roxane Bills on 22-14-2785Xcygcvi Elph (24H U) [Mass fraction]22.9 %.[facility]24 hour urine gamma globulin/total protein ratio by electrophoresisOrdered By: Roxane Bills on 43-01-8450Vewge globulin Elph (24H U) [Mass fraction]20.6 %. [facility]24 hour urine protein monoclonal/total protein by electrophoresisOrdered By: Roxane Bills on 64-24-0129Tsqcavl.monoclonal Elph (24H U) [Mass fraction]8.1 %HighNot [facility] Free K+L LT Chains, Qn, Son 61-86-3639Gacp [place] Light Chains, S128.9 mg/LNormal 3.3-19.4The [facility] Physician GroupComment on above:Performed By: #### KAPPA, SPE ####[facility] ,Free Lambda Light Chains, S37.9 mg/LNormal5.7-26.3 The [facility] Physician GroupComment on above:Performed By: #### KAPPA, SPE ####[facility] ,[place]/Lambda Ratio, S3.25Xzoenb3.26-1.65The [facility] Physician GroupComment on above:Result Comment: Performed at: [facility] [address] [id number] [employer] Referral Clerk: Jhoan Rich PhD, Phone: [phone] BY:[place] [address] [address] [place], [place] [phone] MEDICAL DIRECTORELAINE CHAUDHARY M.D.Performed By: #### KAPPA, SPE ####[facility] ,Magnesiumon 47-86-6774Vgjtzkyzyueprp and review of laboratory resultsAbnormalNOCT Healthcare NOMS HealthcareMagnesium [Mass/volume] in Serum or Plasmaon 98-19-6662Bwvsrsseh [Mass/Vol]1.3 mg/dLLow1.9-2.7NOCT HealthcareComment on above:Result Comment: PERFORMED BY:[place] [address] [address] [place], [place] [phone] MEDICAL LEESA CHAUDHARY M.D.Performed By: #### MG ####[place] [address] [place] [address] USANo Panel InformationOrdered By: Roxane Bills on 35-67-3995Qpfwcnu.[facility]0.4 g/dLHighNot [facility] Comment.[facility] HealthProtein Electro, Random Urineon 56-19-8718Qhdxyaq, Urine22.9 %Normal.The [facility] Physician GroupComment on above:Performed By: #### UPE RAND ####[facility] ,Wvfso-9-Phhuvtpc, Urine5.1 %Normal.The [facility] Physician GroupComment on above:Performed By: #### UPE RAND ####[facility] ,Stdhq-4-Jxwzseaw, Urine26.3 %Normal.The [facility] Physician GroupComment on above:Performed By: #### UPE RAND ####[facility] ,Beta Globulin, Urine25.1 %Normal.The [facility] Physician GroupComment on above:Performed By: #### UPE RAND ####[facility] ,Gamma Globulin, Urine20.6 %Normal.[facility] Comment on above:Performed By: #### UPE RAND ####[facility] ,M-Damien % 8.1 %NormalNot ObservedThe [facility] Physician GroupComment on above:Performed By: #### UPE RAND ####[facility] ,Please Note:CommentNormal.The [facility] Physician GroupComment on above:Result Comment: Protein electrophoresis scan will follow via computer, mail, or green building engineer delivery. Pe rformed at: [facility] [address] [id number] [employer] Referral Clerk: Jhoan Rich PhD, Phone: [phone] BY:[facility] [place], [place] [phone] MEDICAL DIRECTORELAINE CHAUDHARY M.D.Performed By: #### UPE RAND ####[facility] ,Protein Electrophoresis, Serumon 57-01-0339Osqel-1-Globulin0.3 g/dLNormal0.0-0.4The [facility] Physician GroupComment on above:Performed By: #### KAPPA, SPE ####[facility] ,Habgl-9-Eltcgdwq9.9 g/dLNormal0.4-1.0 The [facility] Physician GroupComment on above:Performed By: #### KAPPA, SPE ####[facility] ,Beta Globulin1.1 g/dLNormal0.7-1.3The [facility] Physician GroupComment on above:Performed By: #### KAPPA, SPE ####[facility] ,Gamma Globulin0.9 g/dLNormal0.4-1.8The [facility] Comment on above:Performed By: #### KAPPA, SPE ####[facility] ,M-Damien 0.4 g/dLNormalNot ObservedThe [facility] Physician GroupComment on above: Performed By: #### KAPPA, SPE ####[facility] ,SPE-NoteCommentNormal. The [facility] Physician GroupComment on above:Result Comment: Protein electrophoresis scan will follow via computer, mail, or green building engineer delivery. Pe rformed at: [facility] [address] [id number] [employer] Referral Clerk: Jhoan Rich PhD, Phone: [phone] By: #### KAPPA, SPE ####[facility] ,Serum free kappa light chain measurementOrdered By: Roxane Bills on 26-46-7405Nvqpyrkfjfoxsu light chains.kappa.free (S) [Mass/Vol] 128.9 mg/LHigh3.3-19.4FChillicothe VA Medical Centererum globulin measurement (mass/volume)Ordered By: Roxane Bills on 72-28-5466Qxxmmulb (S) [Mass/Vol]3.2 g/dLNormal2.2-3.9[facility] HealthComment on above:Performed By: #### KAPPA, SPE ####[facility] ,Serum immunoglobulin free kappa light chains/immunoglobulin free lambda light chains Ordered By: Roxane Bills on 24-33-9145Zmaqheiyedymex light chains.kappa.free/Immunoglobulin light chains.lambda.free (S) [Mass ratio]3.40 High0.26-1.65ACMC Healthcare Systemerum or plasma albumin measurement (mass/volume)Ordered By: Roxane Bills on 03-30-8083Ssorpsn [Mass/Vol] 3.1 g/dLNormal2.9-4.4FAvita Health System Galion HospitalComment on above:Performed By: #### KAPPA, SPE ####[facility] ,Serum or plasma albumin/globulin mass ratioOrdered By: Roxane Bills on 32-98-9461Cweacbh/Globulin [Mass ratio]1.0 {ratio}Normal0.7-1.7FAvita Health System Galion HospitalComment on above:Performed By: #### KAPPA, SPE ####[facility] ,Serum or plasma alpha 1 globulin measurement by electrophoresis (mass/volume)Ordered By: Roxane Bills on 12-06-2024 Alpha 1 globulin Elph [Mass/Vol]0.3 g/dL0.0-0.4FAvita Health System Galion Hospital Serum or plasma alpha 2 globulin measurement by electrophoresis (mass/volume) Ordered By: Roxane Bills on 53-29-8667Gsbzn 2 globulin Elph [Mass/Vol]0.9 g/dL 0.4-1.0ACMC Healthcare Systemerum or plasma beta globulin measurement by electrophoresis (mass/volume)Ordered By: Roxane Bills on 12-06-2024 Beta globulin Elph [Mass/Vol]1.1 g/dL0.7-1.3FAvita Health System Galion Hospital Serum or plasma gamma globulin measurement by electrophoresis (mass/volume) Ordered By: Roxane Bills on 37-74-0015Izvrz globulin Elph [Mass/Vol]0.9 g/dL0.4-1.8 ACMC Healthcare Systemerum or plasma immunoglobulin free lambda light chains measurement (mass/volume)Ordered By: Roxane Bills on 12-06-2024 Immunoglobulin light chains.lambda.free [Mass/Vol]37.9 mg/LHigh5.7-26.3FChillicothe VA Medical Centererum total protein measurementOrdered By: Roxane Bills on 18-25-3594Esujuui [Mass/Vol]6.3 g/dLNormal6.0-8.5FAvita Health System Galion HospitalComment on above:Performed By: #### KAPPA, SPE ####[facility] , Urine alpha 1 globulin/total protein by electrophoresisOrdered By: Roxane Sanju on 74-09-7374Qwhzt 1 globulin Elph (U) [Mass fraction]5.1 %.[facility] HealthUrine alpha 2 globulin/total protein ratio by electrophoresis Ordered By: Roxane Sanju on 44-79-1537Tnuaf 2 globulin Elph (U) [Mass fraction]26.3 %.[facility] HealthUrine beta globulin measurement by electrophoresis (mass/volume)Ordered By: Roxane Sanju on 18-33-1097Qxez globulin Elph (U) [Mass/Vol]25.1 %.[facility] HealthUrine protein measurement (mass/volume)Ordered By: Roxane Sanju on 73-20-9186Heioftp (U) [Mass/Vol]6.3 mg/dLNormalNot Estab.[facility] HealthComment on above:Performed By: #### UPE RAND ####[facility] ,Alanine aminotransferase [Enzymatic activity/volume] in Serum or PlasmaOrdered By: Roxane Sanju on 24-65-5855TAD [Catalytic activity/Vol]38 U/LNormal7-52Mer[facility] HealthComment on above:Performed By: #### CMP, CBC ####[facility] [address] [place] [address] USAAlbumin [Mass/volume] in Serum or Plasma by Bromocresol green (BCG) dye binding metho Ordered By: Roxane Bills on 09-72-8095Hgiwlua BCG dye [Mass/Vol]3.5 g/dL3.5-5.7 Mercy HealthAlkaline phosphatase [Enzymatic activity/volume] in Serum or PlasmaOrdered By: Roxane Asnju on 20-81-0139DKJ [Catalytic activity/Vol]84 U/WIigtqn33-912PnegmzhavMercy Health Comment on above:Performed By: #### CMP, CBC ####[facility] [address] [place] [address] USAAspartate aminotransferase [Enzymatic activity/volume] in Serum or PlasmaOrdered By: Roxane Sanju on 16-58-0301SUS [Catalytic activity/Vol]25 U/UAeglat86-89MotgjzbooMercy Health Comment on above:Performed By: #### CMP, CBC ####[address] [address] USABasophils [#/volume] in Blood by Automated countOrdered By: Roxane Bills on 07-54-3893Bhyqnaglu (Bld) [#/Vol]0.0 10*3/uLNormal0.0-0.2FAvita Health System Galion HospitalComment on above:Result Comment: PERFORMED BY:[address] [place], [place] [phone] MEDICAL DIRECTORELAINE CHAUDHARY M.D.Performed By: #### CMP, CBC ####[address] [address] USABasophils/100 leukocytes in Blood by Automated countOrdered By: Roxane Bills on 10-97-9063Rrynbowwk/100 WBC (Bld)0.7 %Normal.[facility] HealthComment on above:Performed By: #### CMP, CBC ####[address] [address] USABilirubin.total [Mass/volume] in Serum or PlasmaOrdered By: Roxane Bills on 24-51-6893Xbcldgnis [Mass/Vol]0.4 mg/dLNormal0.3-1.0Mercy HealthComment on above:Performed By: #### CMP, CBC ####[address] [address] USACBC W Auto Differential panel (Bld)on 12-35-5966Sgwhiutkn (Bld) [#/Vol]0 10*3/uL0.0 - 0.2 10*3/uLNOMS HealthcareBasophils/100 WBC Manual cnt (Syn fld)0.7 %.[facility] HealthcareEosinophils (Bld) [#/Vol]0.3 10*3/uL0.0 - 0.45 10*3/uLNOMS HealthcareEosinophils/100 WBC Manual cnt (Syn fld)8.5 %.[facility] CareErythrocyte distribution width (RBC) [Ratio]15.5 %High11.9 - 15.3 % [facility] CareHematocrit (Bld) [Volume fraction]37.8 %34.0 - 46.4 %[facility] CareHemoglobin (Bld) [Mass/Vol]12.3 g/dL11.8 - 15.4 g/dLUniversity of Missouri Health Care Interpretation and review of laboratory resultsAbnormalUniversity of [facility] Health Care Lymphocytes (Bld) [#/Vol]0.6 10*3/uLLow1.00 - 4.8 10*3/uLNOCT Healthcare Lymphocytes/100 WBC Manual cnt (Syn fld)20.4 %.[facility] Health CareMCH (RBC) [Entitic mass]29.2 pg24.7 - 34.3 pgCameron Regional Medical CenterHC (RBC) [Mass/Vol]32.4 g/dL32.0 - 35.0 g/dLUniversity of Missouri Health CareMCV (RBC) [Entitic vol]90.1 fL80 - 100 fLUniversity of Missouri Health Care Monocytes (Bld) [#/Vol]0.6 10*3/uL0.0 - 0.8 10*3/uLNOCT Healthcare Monocytes+Macrophages/100 WBC Manual cnt (Syn fld)20.5 %.[facility] Neutrophils (Bld) [#/Vol]1.5 10*3/uLLow1.8 - 7.7 10*3/uLNOMS Healthcare Neutrophils/100 WBC Manual cnt (Syn fld)49.9 %.[facility] Health CareNRBC0.2 /100{WBC}0 - 0.5 /100{WBC}[facility] HealthcarePlatelet mean volume (Bld) [Entitic vol]8 fL6.3 - 10.7 fLUniversity of Missouri Health CarePlatelets (Bld) [#/Vol]205 10*3/uL150 - 450 10*3/uLNOHawthorn Children's Psychiatric HospitalRBC LM.HPF (Urine sed) [#/Area]4.2 10*6/uL3.60 - 5.00 10*6/uLNOMS HealthcareWBC (Bld) [#/Vol]3 10*3/uLLow3.8 - 11.6 10*3/uLNOCT HealthcareWBC LM.HPF (Urine sed) [#/Area]3 [CFU]/mLLow3.8 - 11.6 [CFU]/mLNOMS HealthcareNOMS HealthcareCalcium [Mass/volume] in Serum or PlasmaOrdered By: Roxane Sanju on 73-99-3977Ybqzuvo [Mass/Vol]7.3 mg/dLLow8.6-10.3FAvita Health System Galion HospitalComment on above:Performed By: #### CMP, CBC ####[place] [address] USACarbon dioxide, total [Moles/volume] in Serum or PlasmaOrdered By: Roxane Bills on 15-62-0794LT3 [Moles/Vol]37.2 mmol/LHigh21.0-31.0Mercy HealthComment on above:Performed By: #### CMP, CBC ####[place] [address] USAChloride [Moles/volume] in Serum or PlasmaOrdered By: Roxane Bills on 52-86-6041Xvjlicqh [Moles/Vol]99 mmol/TTgaysl62-227VecxsxwstMercy HealthComment on above:Performed By: #### CMP, CBC ####[address] Complete Blood Count Auto Diffon 48-95-0197Gmxf Corpuscular HGB Conc32.4 g/dL Awlhhp83.0-35.0The [facility] Physician GroupComment on above:Performed By: #### CMP, CBC ####[place] [address] USANRBC%0.2 /100{WBC}Normal0-0.5The [facility] Physician GroupComment on above: Performed By: #### CMP, CBC ####[place] [id number] USAWhite Blood Count3.0 [CFU]/mLLow3.8-11.6The [facility] Physician GroupComment on above:Performed By: #### CMP, CBC ####[address] Comprehensive Metabolic Panelon 04-46-1600Oyktfzz [Mass/Vol]3.5 g/dLNormal 3.5-5.7The [facility] Physician GroupComment on above:Performed By: #### CMP, CBC ####[facility] [place] [id number] [facility] Creatinine Clr Calc Jeuwotog25.20NormalThSt. Luke's [facility] Physician GroupComment on above:Result Comment: PERFORMED BY:[address] [place], [place] [phone] MEDICAL LEESA CHAUDHARY M.D.Performed By: #### CMP, CBC ####[address] [place] [place] [address] USAGFR/1.73 sq M.predicted MDRD (S/P/Bld) [Vol rate/Area]47.085 mL/min/{1.73_m2}NormalThe [facility] Physician H[facility] Watkins Memorial HospitalComment on above:Performed By: #### CMP, CBC ####[address] [address] [place] [address] USAComprehensive metabolic panelon 89-53-9464Blzagjv [Mass/Vol]3.5 g/dL3.5 - 5.7 g/dLNOMS HealthcareAlbumin/Globulin [Mass ratio]1.4 {ratio}NOMS HealthcareALP [Catalytic activity/Vol]84 U/L34 - 104 U/LNOMS HealthcareALT [Catalytic activity/Vol]38 U/L7 - 52 U/LNOMS HealthcareAnion gap [Moles/Vol]11.4 mmol/L6.0 - 15.0NOMS HealthcareAST [Catalytic activity/Vol]25 U/L13 - 39 U/LNOMS HealthcareBilirubin [Mass/Vol]0.4 mg/dL0.3 - 1.0 mg/dLNOMS HealthcareCalcium [Mass/Vol]7.3 mg/dLLow8.6 - 10.3 mg/dLNOMS HealthcareChloride [Moles/Vol]99 mmol/L98 - 107 mmol/LNOMS HealthcareCO2 [Moles/Vol]37.2 mmol/LHigh 21.0 - 31.0 mmol/LNOMS HealthcareCreatinine (U) [Mass/Vol]1.26 mg/dLHigh0.60 - 1.20 mg/dLNOMS HealthcareCREATININE CLR CALC ZTOJKJEJ80.2NOMS HealthcareGFR/1.73 sq M.predicted MDRD (S/P/Bld) [Vol rate/Area]47.085 mL/min/{1.73_m2}NOMS HealthcareGlobulin (S) [Mass/Vol]2.5 g/dLNOMS HealthcareGlucose [Mass/Vol]110 mg/hJZlnt28 - 100 mg/dLNOCT HealthcareComment on above:Random Glucose Reference Range is dependent on time and content of last meal. Glucose of more than 200 mg/dL in a nonstressed, ambulatory subject supports the diagnosis of Diabetes Mellitus. ADA recommended reference range Interpretation and review of laboratory resultsAbnormalNOMS HealthcarePotassium [Moles/Vol]4.6 mmol/L3.5 - 5.1 mmol/LNOMS HealthcareProtein [Mass/Vol]6 g/dLLow 6.4 - 8.9 g/dLNOCT HealthcareSodium [Moles/Vol]143 mmol/L136 - 145 mmol/LNOMS HealthcareUrea nitrogen [Mass/Vol]16 mg/dL7 - 25 mg/dLNOCT HealthcareNOCT HealthcareCreatinine [Mass/volume] in Serum or PlasmaOrdered By: Roxane Bills on 14-40-5384Niqxdcxpzs [Mass/Vol]1.26 mg/dLHigh0.60-1.20Mercy HealthComment on above:Performed By: #### CMP, CBC ####[facility] [place] [address] USAEosinophils [#/volume] in Blood by Automated countOrdered By: Roxane Bills on 31-20-4614Wguodjfwiii (Bld) [#/Vol]0.3 10*3/uLNormal0.0-0.45Mercy HealthComment on above:Performed By: #### CMP, CBC ####[facility] [place] [address] USAEosinophils/100 leukocytes in Blood by Automated countOrdered By: Roxane Bills on 04-53-3525Zoqyrwtqwdz/100 WBC (Bld)8.5 %Normal. Mercy HealthComment on above:Performed By: #### CMP, CBC ####[place] [address] [address] Erythrocyte distribution width [Ratio] by Automated countOrdered By: Roxane Bills on 95-15-5122Olbyeklrwbw distribution width (RBC) [Ratio]15.5 %High11.9-15.3 Mercy HealthComment on above:Performed By: #### CMP, CBC ####[address] Erythrocytes [#/volume] in Blood by Automated countOrdered By: Roxane Bills on 81-95-8026BMM (Bld) [#/Vol]4.20 10*6/uLNormal3.60-5.00Mercy HealthComment on above:Performed By: #### CMP, CBC ####[place] [address] USAGlomerular filtration rate [Volume Rate/Area] in Serum, Plasma or Blood by CreatinineOrdered By: Roxane Bills on 99-35-5553Vccsadqabh filtration rate [Volume Rate/Area] in Serum, Plasma or Blood by Udzqdkvnyc12.085 mL/MinMercy HealthGlucose [Mass/volume] in Serum or PlasmaOrdered By: Roxane Bills on 49-07-7153Xrhirtw [Mass/Vol]110 mg/rKNfou90-067QguslbnhaMercy HealthComhenry ford [facility] on above: Result Comment: Random Glucose Reference Range is dependent on time and content of last meal. Glucose of more than 200 mg/dL in a nonstressed, ambulatory subject supports the diagnosis of Diabetes Mellitus. ADA recommended reference rangePerformed By: #### CMP, CBC ####[place] [id number] USAHematocrit [Volume Fraction] of Blood by Automated countOrdered By: Roxane Bills on 64-50-0427Enikrdnavf (Bld) [Volume fraction]37.8 % Zeunrw69.0-46.4FAvita Health System Galion HospitalComment on above:Performed By: #### CMP, CBC ####[facility] [place] [id number] USAHemoglobin [Mass/volume] in BloodOrdered By: Roxane Bills on 12-05-2024 Hemoglobin (Bld) [Mass/Vol]12.3 g/wFEmwlsh73.8-15.4FAvita Health System Galion HospitalComment on above:Performed By: #### CMP, CBC ####[place] [address] USALeukocytes [#/volume] corrected for nucleated erythrocytes in Blood by Automated counOrdered By: Roxane Bills on 49-30-0227GIE corrected for nucl RBC Auto (Bld) [#/Vol]3.0 10*3/uLLow 3.8-11.6FAvita Health System Galion HospitalLeukocytes [#/volume] in Blood by Automated countOrdered By: Roxane Bills on 85-10-2755KJR (Bld) [#/Vol]3.0 10*3/uL Low3.8-11.6FAvita Health System Galion HospitalComment on above:Performed By: #### CMP, CBC ####[place] [address] USALymphocytes [#/volume] in Blood by Automated countOrdered By: Roxane Bills on 60-59-4979Itsjyjntbbq (Bld) [#/Vol]0.6 10*3/uLLow1.00-4.8Mercy HealthComment on above:Performed By: #### CMP, CBC ####[place] [address] USALymphocytes/100 leukocytes in Blood by Automated countOrdered By: Roxane Bills on 12-05-2024 Lymphocytes/100 WBC (Bld)20.4 %Normal.Mercy HealthComment on above:Performed By: #### CMP, CBC ####[place] [address] USAMCH [Entitic mass] by Automated countOrdered By: Roxane Bills on 52-49-1363YOM (RBC) [Entitic mass]29.2 yaMautjk27.7-34.3 Mercy HealthComment on above:Performed By: #### CMP, CBC ####[address] [address] [facility] Auto (RBC) [Mass/Vol]Ordered By: Roxane Bills on 30-04-0982MTFI (RBC) [Mass/Vol] 32.4 g/dL32.0-35.0Mercy HealthMCV [Entitic volume] by Automated countOrdered By: Roxane Bills on 70-67-0064XHG (RBC) [Entitic vol]90.1 fL Stxvgn45-105JbfwsotszMercy HealthComment on above:Performed By: #### CMP, CBC ####[place] [id number] USAMonocytes [#/volume] in Blood by Automated countOrdered By: Roxane Bills on 56-80-1760Zposwnxys (Bld) [#/Vol]0.6 10*3/uLNormal0.0-0.8Mercy HealthComment on above:Performed By: #### CMP, CBC ####[place] [id number] USAMonocytes/100 leukocytes in Blood by Automated countOrdered By: Roxane Bills on 12-05-2024 Monocytes/100 WBC (Bld)20.5 %Normal.Mercy HealthComment on above:Performed By: #### CMP, CBC ####[place] [id number] USANeutrophils [#/volume] in Blood by Automated count Ordered By: Roxane Bills on 06-58-1974Wztsqlhahlt (Bld) [#/Vol]1.5 10*3/uLLow 1.8-7.7FAvita Health System Galion HospitalComment on above:Performed By: #### CMP, CBC ####[place] [id number] [place] Neutrophils/100 leukocytes in Blood by Automated countOrdered By: Roxane Bills on 22-55-6500Qpeyperdnry/100 WBC (Bld)49.9 %Normal.Mercy HealthComment on above:Performed By: #### CMP, CBC ####[address] [address] USANo Panel InformationOrdered By: Roxane Bills on .20Mercy HealthNucleated erythrocytes [Presence] in Blood by Automated countOrdered By: Roxane Bills on 81-27-2690Bxjuelddr RBC Auto Ql (Bld)0.2 /100{WBC}0-0.5FAvita Health System Galion HospitalPlatelet mean volume [Entitic volume] in Blood by Automated count Ordered By: Roxane Bills on 54-86-3233Nuggxcgw mean volume (Bld) [Entitic vol]8.0 fLNormal6.3-10.7FAvita Health System Galion HospitalComment on above:Performed By: #### CMP, CBC ####[place] [id number] USAPlatelets [#/volume] in Blood by Automated countOrdered By: Roxane Bills on 10-34-9087Zuciamvtg (Bld) [#/Vol]205 10*3/oLKriiuw124-515YalsvhigxMercy HealthComment on above:Performed By: #### CMP, CBC ####[place] [address] USAPotassium [Moles/volume] in Serum or PlasmaOrdered By: Roxane Bills on 15-52-5865Gxupdfwsn [Moles/Vol]4.6 mmol/LNormal3.5-5.1FAvita Health System Galion HospitalComment on above:Performed By: #### CMP, CBC ####[place] [address] USAProtein [Mass/volume] in Serum or PlasmaOrdered By: Roxane Bills on 48-54-4036Gbzpogm [Mass/Vol]6.0 g/dLLow6.4-8.9Mercy HealthComment on above:Performed By: #### CMP, CBC ####[place] [id number] USASerum globulin measurement by calculation (mass/volume)Ordered By: Roxane Bills on 12-05-2024 Globulin (S) [Mass/Vol]2.5 g/dLNoUK HealthcareComment on above:Performed By: #### CMP, CBC ####[place] [id number] USASerum or plasma albumin/globulin mass ratioOrdered By: Roxane Bills on 19-72-0105Pjtbcam/Globulin [Mass ratio]1.4 {ratio}Normal Mercy HealthComment on above:Performed By: #### CMP, CBC ####[place] [id number] USASerum or plasma anion gap determinationOrdered By: Roxane Bills on 02-51-7961Ekfmg gap [Moles/Vol]11.4 mmol/LNormal6.0-15.0Mercy HealthComment on above:Performed By: #### CMP, CBC ####[place] [id number] USASodium [Moles/volume] in Serum or PlasmaOrdered By: Roxane Bills on 28-26-2312Lyhwsi [Moles/Vol]143 mmol/HRzrrre171-427PkifimxyqMercy HealthComment on above:Performed By: #### CMP, CBC ####[place] [id number] USAUrea nitrogen [Mass/volume] in Serum or PlasmaOrdered By: Roxane Bills on 11-68-4736Rzck nitrogen [Mass/Vol]16 mg/dLNormal7-Mercy HealthComment on above:Performed By: #### CMP, CBC ####[address] [address] USABasophils/100 leukocytes in Blood by Manual countOrdered By: Roxane Bills on 99-24-0790Svspkvmys/100 WBC (Bld)1 %Normal0-2 Mercy HealthComment on above:Performed By: #### CMP, DIFF CBC ####[address] [address] [place] Comprehensive Metabolic Panelon 39-91-7518Otbxgvb [Mass/Vol]3.3 g/dLLow3.5-5.7 The [facility] Physician GroupComment on above:Performed By: #### CMP, DIFF CBC ####[address] [address] [place] Albumin/Globulin [Mass ratio]1.1 {ratio}NormalThe [facility] Comment on above:Performed By: #### CMP, DIFF CBC ####[address] [address] USAALP [Catalytic activity/Vol]79 U/L Ynrdqe52-681Qiz [facility] Physician GroupComment on above:Performed By: #### CMP, DIFF CBC ####[address] [address] USAALT [Catalytic activity/Vol]37 U/LNormal7-52The [facility] Physician GroupComment on above:Performed By: #### CMP, DIFF CBC ####[address] [address] USAAnion gap [Moles/Vol]8.0 mmol/LNormal6.0-15.0The [facility] Physician GroupComment on above:Performed By: #### CMP, DIFF CBC ####[address] [address] USAAST [Catalytic activity/Vol]15 U/ZEcabzp43-55Ijy [facility] Physician GroupComment on above:Performed By: #### CMP, DIFF CBC ####[address] [address] USABilirubin [Mass/Vol]0.5 mg/dL Normal0.3-1.0The [facility] Physician GroupComment on above:Performed By: #### CMP, DIFF CBC ####[address] [address] USACalcium [Mass/Vol]7.5 mg/dLLow8.6-10.3The [facility] Comment on above:Performed By: #### CMP, DIFF CBC ####[address] [address] USAChloride [Moles/Vol]98 mmol/LNormal 98-107The [facility] Physician GroupComment on above:Performed By: #### CMP, DIFF CBC ####[address] [address] [place] CO2 [Moles/Vol]39.8 mmol/LHigh21.0-31.0The [facility] Physician [facility] HospitalComment on above:Performed By: #### CMP, DIFF CBC ####[place] [id number] USACreatinine [Mass/Vol]1.19 mg/dLNormal0.60-1.20 The [facility] Physician GroupComment on above:Performed By: #### CMP, DIFF CBC ####[place] [address] [place] Creatinine Clr Calc Itlpqbqm89.76NoUNC [facility]als Hills[facility] Physician [facility]. [facility]. Watkins Memorial HospitalComment on above:Result Comment: PERFORMED BY:[address] [place], [place] [phone] MEDICAL LEESA CHAUDHARY M.D.Performed By: #### CMP, DIFF CBC ####[place] [id number] USAGFR/1.73 sq M.predicted MDRD (S/P/Bld) [Vol rate/Area]50.428 mL/min/{1.73_m2}NormalThe James E. Van Zandt Veterans Affairs Medical CenterComment on above:Performed By: #### CMP, DIFF CBC ####[place] [id number] USAGlobulin (S) [Mass/Vol]3.1 g/dLNoUNC Hospitals Hillsborough [facility] Physician [facility] Memorial HospitalComment on above:Performed By: #### CMP, DIFF CBC ####[place] [id number] USAGlucose [Mass/Vol]159 mg/nFNwkc86-894Jdv [facility] Physician GroupComment on above: Result Comment: Random Glucose Reference Range is dependent on time and content of last meal. Glucose of more than 200 mg/dL in a nonstressed, ambulatory subject supports the diagnosis of Diabetes Mellitus. ADA recommended reference rangePerformed By: #### CMP, DIFF CBC ####[facility] [address] [place] [address] USAPotassium [Moles/Vol]3.8 mmol/LNormal3.5-5.1 The [facility] Physician GroupComment on above:Performed By: #### CMP, DIFF CBC ####[facility] [address] [place] [address] USAProtein [Mass/Vol]6.4 g/dLNormal6.4-8.9The [facility] Physician GroupComment on above: Performed By: #### CMP, DIFF CBC ####[facility] [address] [place] [address] USASodium [Moles/Vol]142 mmol/ALcxoof753-730Ssm [facility] Physician [facility] HospitalComment on above:Performed By: #### CMP, DIFF CBC ####[facility] [address] [place] [address] USAUrea nitrogen [Mass/Vol]13 mg/dLNormal7-25The [facility] Physician GroupComment on above:Performed By: #### CMP, DIFF CBC ####[facility] [address] [place] [address] USAComprehensive metabolic panelon 11-28-2024 Albumin [Mass/Vol]3.3 g/dLLow3.5 - 5.7 g/dLNOMS HealthcareAlbumin/Globulin [Mass ratio]1.1 {ratio}NOMS HealthcareALP [Catalytic activity/Vol]79 U/L34 - 104 U/L NOMS HealthcareALT [Catalytic activity/Vol]37 U/L7 - 52 U/LNOMS HealthcareAnion gap [Moles/Vol]8 mmol/L6.0 - 15.0NOMS HealthcareAST [Catalytic activity/Vol]15 U/L13 - 39 U/LNOMS HealthcareBilirubin [Mass/Vol]0.5 mg/dL0.3 - 1.0 mg/dLNOMS HealthcareCalcium [Mass/Vol]7.5 mg/dLLow8.6 - 10.3 mg/dLNOMS HealthcareChloride [Moles/Vol]98 mmol/L98 - 107 mmol/LNOMS HealthcareCO2 [Moles/Vol]39.8 mmol/LHigh 21.0 - 31.0 mmol/LNOMS HealthcareCreatinine (U) [Mass/Vol]1.19 mg/dL0.60 - 1.20 mg/dLNOCT HealthcareCREATININE CLR CALC SAYYEWSO93.76NOMS HealthcareGFR/1.73 sq M.predicted MDRD (S/P/Bld) [Vol rate/Area]50.428 mL/min/{1.73_m2}[facility] Globulin (S) [Mass/Vol]3.1 g/dLNOCT HealthcareGlucose [Mass/Vol]159 mg/yUMddw54 - 100 mg/dLNOCT HealthcareComment on above:Random Glucose Reference Range is dependent on time and content of last meal. Glucose of more than 200 mg/dL in a nonstressed, ambulatory subject supports the diagnosis of Diabetes Mellitus. ADA recommended reference range Interpretation and review of laboratory resultsAbnormalNOMS HealthcarePotassium [Moles/Vol]3.8 mmol/L3.5 - 5.1 mmol/LNOMS HealthcareProtein [Mass/Vol]6.4 g/dL 6.4 - 8.9 g/dLNOCT HealthcareSodium [Moles/Vol]142 mmol/L136 - 145 mmol/LNOMS HealthcareUrea nitrogen [Mass/Vol]13 mg/dL7 - 25 mg/dLNOCT HealthcareNOCT HealthcareDiff and CBCon 41-97-0592Mqbsberdosp distribution width (RBC) [Ratio] 15.0 %Fefcuh91.9-15.3The [facility] Physician GroupComment on above:Performed By: #### CMP, DIFF CBC ####[facility] [place] [address] USAHematocrit (Bld) [Volume fraction]35.3 %Znsdxz40.0-46.4The [facility] Physician GroupComment on above:Performed By: #### CMP, DIFF CBC ####[facility] [place] [address] [place] Hemoglobin (Bld) [Mass/Vol]11.5 g/dLLow11.8-15.4The [facility] Comment on above:Performed By: #### CMP, DIFF CBC ####[facility] [place] [id number] USAMCH (RBC) [Entitic mass]29.2 pgNormal 24.7-34.3The [facility] Physician [facility] HospitalComment on above:Performed By: #### CMP, DIFF CBC ####[place] [address] USAMCV (RBC) [Entitic vol]89.6 fXDtypen31-445Pji [facility] Physician [facility] Comment on above:Performed By: #### CMP, DIFF CBC ####[place] [address] USAMean Corpuscular HGB Conc32.6 g/dL Fupxml17.0-35.0The [facility] Physician [facility] Memorial HospitalComment on above:Performed By: #### CMP, DIFF CBC ####[place] [address] USAMicrocytosisSlightNoCleveland Clinic Marymount HospitalComment on above: Performed By: #### CMP, DIFF CBC ####[place] [address] USAPlatelet EstimateNormalNormalGrand Itasca Clinic and HospitalComment on above:Performed By: #### CMP, DIFF CBC ####[place] [address] USAPlatelet mean volume (Bld) [Entitic vol]7.3 fLNormal6.3-10.7The [facility] Physician [facility] Memorial HospitalComment on above:Result Comment: PERFORMED BY:[address] [place], [place] [phone] MEDICAL LEESA CHAUDHARY M.D.Performed By: #### CMP, DIFF CBC ####[place] [address] USAPlatelet MorphologyNormalNormalJohns Hopkins All Children[facility] Physician [facility] Memorial HospitalComment on above:Result Comment: PERFORMED BY:[address] [place], [place] [phone] MEDICAL LEESA CHAUDHARY M.D.Performed By: #### CMP, DIFF CBC ####[address] [place] [address] [place] Platelets (Bld) [#/Vol]169 10*3/xIQxfqbu440-231Uot [facility] Comment on above:Performed By: #### CMP, DIFF CBC ####[address] [address] USAPolychromasiaSlightNormalThe [facility] Physician [facility] Memorial HospitalComment on above:Performed By: #### CMP, DIFF CBC ####[address] [address] USARBC (Bld) [#/Vol]3.94 10*6/uLNormal3.60-5.00The [facility] Physician GroupComment on above:Performed By: #### CMP, DIFF CBC ####[address] [address] USAReactive Lymphocytes2 %Normal0-12The [facility] Physician [facility] Memorial HospitalComment on above:Performed By: #### CMP, DIFF CBC ####[address] [address] USAWBC (Bld) [#/Vol]3.1 10*3/uLLow3.8-11.6The [facility] Physician GroupComment on above:Performed By: #### CMP, DIFF CBC ####[address] [address] USAWhite Blood Count3.1 [CFU]/mLLow3.8-11.6The [facility] Physician [facility] HospitalComment on above:Performed By: #### CMP, DIFF CBC ####[address] [address] USAEosinophils/100 leukocytes in Blood by Manual countOrdered By: Roxane Bills on 91-78-9792Qaluxrtewpf/100 WBC (Bld)12 %High1-3FAvita Health System Galion HospitalComment on above:Performed By: #### CMP, DIFF CBC ####[address] [address] USAErythrocyte morphology finding [Identifier] in BloodOrdered By: Roxane Bills on 10-51-4392CTB morphology finding Nom (Bld)N/AFirelands Regional Medical CenterLymphocytes/100 leukocytes in Blood by Manual countOrdered By: Roxane Bills on 62-81-1782Hpdzcggaaiw/100 WBC (Bld)25 %Rljdcm17-62JugepwplfMercy HealthComment on above:Performed By: #### CMP, DIFF CBC ####[address] [address] USAMagnesium [Mass/volume] in Serum or PlasmaOrdered By: Sugey Cummins on 49-46-1698Noyosqfyw [Mass/Vol]1.4 mg/dLLow1.9-2.7FAvita Health System Galion HospitalComment on above:Result Comment: PERFORMED BY:[address] [place], [place] [phone] MEDICAL DIRECTORELAINE CHAUDHARY M.D.Performed By: #### MG ####[address] [address] USAMicrocytes LM Ql (Bld)Ordered By: Roxane Bills on 85-29-1800Uuqneacouu Ql (Bld) [facility] NorthMonocytes/100 leukocytes in Blood by Manual countOrdered By: Roxane Bills on 84-95-5578Gpuqhfqhq/100 WBC (Bld)6 %Normal 2-11Mercy HealthComment on above:Performed By: #### CMP, DIFF CBC ####[address] [address] USAPlatelet adequacy [Presence] in Blood by Light microscopyOrdered By: Roxane Bills on 61-03-1300Pvryidcsf LM Ql (Bld)NormalSalem City HospitalPlatelet morphology finding [Identifier] in BloodOrdered By: Roxane Bills on 42-30-2816Oqaoncxj morphology finding Nom (Bld)NormalSalem City HospitalPolychromasia [Presence] in Blood by Light microscopyOrdered By: Roxane Bills on 19-14-9237Hlkwnvcnuwrhn LM Ql (Bld)[facility] Hospitalegmented neutrophils/100 leukocytes in Blood by Manual countOrdered By: Roxane Bills on 16-79-6492Wltvsrimu neutrophils/100 WBC (Bld)55 %Ksvubn40-47 Mercy HealthComment on above:Performed By: #### CMP, DIFF CBC ####[place] [id number] [place] Variant lymphocytes/100 WBC Manual cnt (Bld)Ordered By: Roxane Bills on 11-28-2024 Variant lymphocytes/100 WBC (Bld)2 %0-12Mercy HealthAlanine aminotransferase [Enzymatic activity/volume] in Serum or PlasmaOrdered By: Roxane Bills on 78-47-3055KDZ [Catalytic activity/Vol]55 U/LHigh7-52Mercy HealthComment on above:Performed By: #### CBC, CMP ####[place] [address] USAAlbumin [Mass/volume] in Serum or Plasma by Bromocresol green (BCG) dye binding methoOrdered By: Roxane Bills on 71-54-2052Fvruonz BCG dye [Mass/Vol]3.4 g/dLLow3.5-5.7FAvita Health System Galion HospitalAlkaline phosphatase [Enzymatic activity/volume] in Serum or PlasmaOrdered By: Roxane Bills on 33-86-5450SDP [Catalytic activity/Vol]106 U/L Blzv79-418NnwriiehkMercy HealthComment on above:Performed By: #### CBC, CMP ####[place] [address] USAAspartate aminotransferase [Enzymatic activity/volume] in Serum or Plasma Ordered By: Roxane Bills on 15-44-1973MJC [Catalytic activity/Vol]29 U/HJbftqo93-58 Mercy HealthComment on above:Performed By: #### CBC, CMP ####[place] [address] [place] Basophils [#/volume] in Blood by Automated countOrdered By: Roxane Bills on 38-09-2076Wlynntrkl (Bld) [#/Vol]0.0 10*3/uLNormal0.0-0.2FAvita Health System Galion HospitalComment on above:Result Comment: PERFORMED BY:[address] [place], [place] [phone] MEDICAL DIRECTORELAINE CHAUDHARY M.D.Performed By: #### CBC, CMP ####[place] [id number] USABasophils/100 leukocytes in Blood by Automated countOrdered By: Roxane Bills on 60-76-9241Sgxdfuhke/100 WBC (Bld)0.3 %Normal.Mercy HealthComment on above:Performed By: #### CBC, CMP ####[place] [id number] USABilirubin.total [Mass/volume] in Serum or PlasmaOrdered By: Roxane Bills on 82-49-4473Wgnofrskl [Mass/Vol]0.4 mg/dLNormal0.3-1.0Mercy HealthComment on above:Performed By: #### CBC, CMP ####[place] [id number] USACBC W Auto Differential panel (Bld)on 80-65-2987Ycaehlydo (Bld) [#/Vol]0 10*3/uL0.0 - 0.2 10*3/uLNOMS HealthcareBasophils/100 WBC Manual cnt (Syn fld)0.3 %.NOMS HealthcareEosinophils (Bld) [#/Vol]0.4 10*3/uL0.0 - 0.45 10*3/uLNOMS Healthcare Eosinophils/100 WBC Manual cnt (Syn fld)5.6 %.NOMS HealthcareErythrocyte distribution width (RBC) [Ratio]15 %11.9 - 15.3 %NOMS HealthcareHematocrit (Bld) [Volume fraction]36.4 %34.0 - 46.4 %NOMS HealthcareHemoglobin (Bld) [Mass/Vol] 11.9 g/dL11.8 - 15.4 g/dLNOMS HealthcareInterpretation and review of laboratory resultsAbnormalNOMS HealthcareLymphocytes (Bld) [#/Vol]0.5 10*3/uLLow1.00 - 4.8 10*3/uLNOMS HealthcareLymphocytes/100 WBC Manual cnt (Syn fld)6.8 %.[facility] HealthcareMCH (RBC) [Entitic mass]29.3 pg24.7 - 34.3 pgNOCT HealthcareHC (RBC) [Mass/Vol]32.8 g/dL32.0 - 35.0 g/dLNOCT HealthcareMCV (RBC) [Entitic vol]89.4 fL 80 - 100 fLNOMS HealthcareMonocytes (Bld) [#/Vol]0.4 10*3/uL0.0 - 0.8 10*3/uL NOMS HealthcareMonocytes+Macrophages/100 WBC Manual cnt (Syn fld)6 %.[facility] HealthcareNeutrophils (Bld) [#/Vol]6.1 10*3/uL1.8 - 7.7 10*3/uLNOMS Healthcare Neutrophils/100 WBC Manual cnt (Syn fld)81.3 %.[facility] HealthcareNRBC0 /100{WBC}0 - 0.5 /100{WBC}NOMS HealthcarePlatelet mean volume (Bld) [Entitic vol]7.8 fL6.3 - 10.7 fLNOCT HealthcarePlatelets (Bld) [#/Vol]221 10*3/uL150 - 450 10*3/uLNOMS HealthcareRBC LM.HPF (Urine sed) [#/Area]4.07 10*6/uL3.60 - 5.00 10*6/uLNOMS HealthcareWBC (Bld) [#/Vol]7.4 10*3/uL3.8 - 11.6 10*3/uLNOMS HealthcareWBC LM.HPF (Urine sed) [#/Area]7.4 [CFU]/mL3.8 - 11.6 [CFU]/mLNOMS HealthcareBEAVER VALLEY [facility]OSPITAL HealthcareCalcium [Mass/volume] in Serum or PlasmaOrdered By: Roxane Bills on 43-79-7362Gtahmsu [Mass/Vol]7.9 mg/dLLow8.6-10.3FAvita Health System Galion HospitalComment on above:Performed By: #### CBC, CMP ####[facility] [address] [place] [address] USACarbon dioxide, total [Moles/volume] in Serum or PlasmaOrdered By: Roxane Sanju on 47-75-8312LY1 [Moles/Vol]40.1 mmol/LHigh21.0-31.0Mercy HealthComment on above:Performed By: #### CBC, CMP ####[place] [address] USAChloride [Moles/volume] in Serum or PlasmaOrdered By: Roxane Bills on [id number] [Moles/Vol]97 mmol/GQkx32-714SbuhvwukyMercy HealthComment on above:Performed By: #### CBC, CMP ####[address] Complete Blood Count Auto Diffon [id number] Corpuscular HGB Conc32.8 g/dL Ozvhlw51.0-35.0The [facility] Affairs Medical CenterComment on above:Performed By: #### CBC, CMP ####[place] [address] USANRBC%0.0 /100{WBC}Normal0-0.5The [facility] Veterans Affairs Medical CenterComment on above: Performed By: #### CBC, CMP ####[place] [id number] [facility] MEDICAL CENTERWhite Blood Count7.4 [CFU]/mLNormal3.8-11.6The [facility] Medical CenterComment on above:Performed By: #### CBC, CMP ####[place] [id number] [facility] Comprehensive Metabolic Panelon 90-41-0254Oddvufx [Mass/Vol]3.4 g/dLLow3.5-5.7 The [facility] Affairs Medical CenterComment on above:Performed By: #### CBC, CMP ####[place] [id number] [facility] Creatinine Clr Calc Pvsuqtiz10.52NormalThe [facility] E. [facility] Zandt Veterans Affairs Medical CenterComment on above:Result Comment: PERFORMED BY:[address] [place], [place] [phone] MEDICAL LEESA CHAUDHARY M.D.Performed By: #### CBC, CMP ####[facility] [address] [place] [address] USAGFR/1.73 sq M.predicted MDRD (S/P/Bld) [Vol rate/Area]43.732 mL/min/{1.73_m2}NormalThe [facility] Physician GroupComment on above:Performed By: #### CBC, CMP ####[facility] [address] [place] [address] USAComprehensive metabolic panelon 80-72-6797Gvxcqcp [Mass/Vol]3.4 g/dLLow3.5 - 5.7 g/dLNOCT HealthcareAlbumin/Globulin [Mass ratio] 1.3 {ratio}NOMS HealthcareALP [Catalytic activity/Vol]106 U/LHigh34 - 104 U/L NOMS HealthcareALT [Catalytic activity/Vol]55 U/LHigh7 - 52 U/LNOMS Healthcare Anion gap [Moles/Vol]9.8 mmol/L6.0 - 15.0NOMS HealthcareAST [Catalytic activity/Vol]29 U/L13 - 39 U/LNOMS HealthcareBilirubin [Mass/Vol]0.4 mg/dL0.3 - 1.0 mg/dLNOCT HealthcareCalcium [Mass/Vol]7.9 mg/dLLow8.6 - 10.3 mg/dLNOCT HealthcareChloride [Moles/Vol]97 mmol/LLow98 - 107 mmol/LNOMS HealthcareCO2 [Moles/Vol]40.1 mmol/LHigh21.0 - 31.0 mmol/LNOMS HealthcareCreatinine (U) [Mass/Vol]1.34 mg/dLHigh0.60 - 1.20 mg/dLNOCT HealthcareCREATININE CLR CALC XXTDWOSO10.52NOMS HealthcareGFR/1.73 sq M.predicted MDRD (S/P/Bld) [Vol rate/Area]43.732 mL/min/{1.73_m2}NOMS HealthcareGlobulin (S) [Mass/Vol]2.7 g/dL NOMS HealthcareGlucose [Mass/Vol]123 mg/sFCcyu15 - 100 mg/dLNOCT Healthcare Comment on above:Random Glucose Reference Range is dependent on time and content of last meal. Glucose of more than 200 mg/dL in a nonstressed, ambulatory subject supports the diagnosis of Diabetes Mellitus. ADA recommended reference range Interpretation and review of laboratory resultsAbnormalNOMS HealthcarePotassium [Moles/Vol]3.9 mmol/L3.5 - 5.1 mmol/LNOMS HealthcareProtein [Mass/Vol]6.1 g/dL Low6.4 - 8.9 g/dLNOMS HealthcareSodium [Moles/Vol]143 mmol/L136 - 145 mmol/LNOMS HealthcareUrea nitrogen [Mass/Vol]19 mg/dL7 - 25 mg/dLNOMS HealthcareNOMS HealthcareCreatinine [Mass/volume] in Serum or PlasmaOrdered By: Roxane Bills on 91-13-9552Cjgzsvglfh [Mass/Vol]1.34 mg/dLHigh0.60-1.20Mercy HealthComment on above:Performed By: #### CBC, CMP ####[place] [address] USAEosinophils [#/volume] in Blood by Automated countOrdered By: Roxane Bills on 23-89-6533Edqfypmlspc (Bld) [#/Vol]0.4 10*3/uLNormal0.0-0.45Mercy HealthComment on above:Performed By: #### CBC, CMP ####[place] [address] USAEosinophils/100 leukocytes in Blood by Automated countOrdered By: Roxane Bills on 62-64-0123Ffqllvnbpks/100 WBC (Bld)5.6 %Normal. Mercy HealthComment on above:Performed By: #### CBC, CMP ####[place] [id number] [facility] Erythrocyte distribution width [Ratio] by Automated countOrdered By: Roxane Bills on 20-06-4970Qthvxwkqklp distribution width (RBC) [Ratio]15.0 %Aaljfq93.9-15.3 Mercy HealthComment on above:Performed By: #### CBC, CMP ####[place] [id number] [place] Erythrocytes [#/volume] in Blood by Automated countOrdered By: Roxane Bills on 70-05-0947INL (Bld) [#/Vol]4.07 10*6/uLNormal3.60-5.00Mercy HealthComment on above:Performed By: #### CBC, CMP ####[place] [id number] USAGlucose [Mass/volume] in Serum or PlasmaOrdered By: Roxane Bills on 27-94-2575Ovroehz [Mass/Vol]123 mg/dLHigh 70-100Mercy HealthComment on above:Result Comment: Random Glucose Reference Range is dependent on time and content of last meal. Glucose of more than 200 mg/dL in a nonstressed, ambulatory subject supports the diagnosis of Diabetes Mellitus. ADA recommended reference rangePerformed By: #### CBC, CMP ####[place] [id number] USAHematocrit [Volume Fraction] of Blood by Automated countOrdered By: Roxane Bills on 82-10-4364Ogwobwnvev (Bld) [Volume fraction]36.4 %Ixdvbo29.0-46.4 Mercy HealthComment on above:Performed By: #### CBC, CMP ####[place] [id number] [place] Hemoglobin [Mass/volume] in BloodOrdered By: Roxane Bills on 41-91-8135Gewgoauirj (Bld) [Mass/Vol]11.9 g/lMBsedrk75.8-15.4FAvita Health System Galion HospitalComment on above:Performed By: #### CBC, CMP ####[place] [id number] USALeukocytes [#/volume] corrected for nucleated erythrocytes in Blood by Automated counOrdered By: Roxane Bills on 09-85-1037HQA corrected for nucl RBC Auto (Bld) [#/Vol]7.4 10*3/uL3.8-11.6FAvita Health System Galion HospitalLeukocytes [#/volume] in Blood by Automated countOrdered By: Roxane Bills on 17-81-2318IZL (Bld) [#/Vol]7.4 10*3/uLNormal3.8-11.6FAvita Health System Galion HospitalComment on above:Performed By: #### CBC, CMP ####[address] [address] USALymphocytes [#/volume] in Blood by Automated countOrdered By: Roxane Bills on 11-21-2024 Lymphocytes (Bld) [#/Vol]0.5 10*3/uLLow1.00-4.8[facility] Comment on above:Performed By: #### CBC, CMP ####[address] [address] USALymphocytes/100 leukocytes in Blood by Automated countOrdered By: Roxane Bills on 69-95-9037Wooqngnuvot/100 WBC (Bld)6.8 %Normal.Mercy HealthComment on above:Performed By: #### CBC, CMP ####[address] [address] [facility] [place] [Entitic mass] by Automated countOrdered By: Roxane Bills on 47-27-0264FOI (RBC) [Entitic mass]29.3 pbGqbyhv02.7-34.3FAvita Health System Galion Hospital Comment on above:Performed By: #### CBC, CMP ####[address] [address] [facility] Auto (RBC) [Mass/Vol]Ordered By: Roxane Bills on 13-08-7402JAHA (RBC) [Mass/Vol]32.8 g/dL32.0-35.0Mercy HealthMCV [Entitic volume] by Automated countOrdered By: Roxane Bills on 05-89-3417SQU (RBC) [Entitic vol]89.4 uKRkpidk82-778LdvxzxibwMercy HealthComment on above:Performed By: #### CBC, CMP ####[address] [address] USAMonocytes [#/volume] in Blood by Automated countOrdered By: Roxane Bills on 97-79-5065Iigovmayj (Bld) [#/Vol]0.4 10*3/uLNormal0.0-0.8Mercy HealthComment on above:Performed By: #### CBC, CMP ####[facility] [address] [place] [address] USAMonocytes/100 leukocytes in Blood by Automated countOrdered By: Roxane Bills on 63-33-5568Vremkebdn/100 WBC (Bld)6.0 %Normal.Mercy HealthComment on above:Performed By: #### CBC, CMP ####[facility] [address] [place] [address] USANeutrophils [#/volume] in Blood by Automated countOrdered By: Roxane Bills on 31-31-4163Vubkwcbgrmu (Bld) [#/Vol]6.1 10*3/uLNormal1.8-7.7FAvita Health System Galion HospitalComment on above:Performed By: #### CBC, CMP ####[facility] [address] [place] [address] USANeutrophils/100 leukocytes in Blood by Automated countOrdered By: Roxane Bills on 62-62-0797Jknwopdzcvl/100 WBC (Bld)81.3 %Normal. Mercy HealthComment on above:Performed By: #### CBC, CMP ####[address] [address] USANo Panel InformationOrdered By: Roxane Bills on 62-92-292908.732 mL/MinMercy Health46.52Mercy HealthNucleated erythrocytes [Presence] in Blood by Automated countOrdered By: Roxane Bills on 02-37-8335Zptywvgvo RBC Auto Ql (Bld)0.0 /100{WBC}0-0.5FAvita Health System Galion HospitalPlatelet mean volume [Entitic volume] in Blood by Automated count Ordered By: Roxane Bills on 26-84-2524Coghlbpu mean volume (Bld) [Entitic vol]7.8 fLNormal6.3-10.7FAvita Health System Galion HospitalComment on above:Performed By: #### CBC, CMP ####[address] [address] USAPlatelets [#/volume] in Blood by Automated countOrdered By: Roxane Bills on 50-79-8522Zscphkuhk (Bld) [#/Vol]221 10*3/lOLofkaa935-857MavqwitrlMercy HealthComment on above:Performed By: #### CBC, CMP ####[address] [address] USAPotassium [Moles/volume] in Serum or PlasmaOrdered By: Roxane Bills on 43-96-5848Yeoqqfmxz [Moles/Vol]3.9 mmol/LNormal3.5-5.1FAvita Health System Galion HospitalComment on above:Performed By: #### CBC, CMP ####[address] [address] USAProtein [Mass/volume] in Serum or PlasmaOrdered By: Roxane Bills on 49-98-4932Finnkno [Mass/Vol]6.1 g/dLLow6.4-8.9Mercy HealthComment on above:Performed By: #### CBC, CMP ####[address] [address] USASerum globulin measurement by calculation (mass/volume)Ordered By: Roxane Bills on 11-21-2024 Globulin (S) [Mass/Vol]2.7 g/dLNormalMercy HealthComment on above:Performed By: #### CBC, CMP ####[address] [address] USASerum or plasma albumin/globulin mass ratioOrdered By: Roxane Bills on 98-87-1622Bxzxdde/Globulin [Mass ratio]1.3 {ratio}Normal Mercy HealthComment on above:Performed By: #### CBC, CMP ####[address] [address] USASerum or plasma anion gap determinationOrdered By: Roxane Bills on 99-15-3608Tvovr gap [Moles/Vol]9.8 mmol/LNormal6.0-15.0Mercy HealthComment on above:Performed By: #### CBC, CMP ####[facility] [address] [place] [address] USASodium [Moles/volume] in Serum or PlasmaOrdered By: Roxane Sanju on 93-87-4050Zkulrv [Moles/Vol]143 mmol/IXulpsg490-100TyulzqnhkMercy HealthComment on above:Performed By: #### CBC, CMP ####[facility] [address] [place] [address] USAUrea nitrogen [Mass/volume] in Serum or PlasmaOrdered By: Roxane Bills on 18-64-3096Vokn nitrogen [Mass/Vol]19 mg/dLNormal7-25Mercy HealthComment on above:Performed By: #### CBC, CMP ####[facility] [address] [place] [address] USAECH echo transthoracicon 22-63-6850HSX echo transthoracicNoUNC Hospitals Hills[facility] Physician GroupGlucose (Bld) [Mass/Vol]on 00-84-6508Iufhkff Blood, HOY705 mg/dLNOCT HealthcareLaboratory - Hematology and Cell countson 90-96-6948MlE8i (Bld) [Mass fraction]12.6 %[facility] CareNo Panel Informationon 24-24-3235DLNG HealthcareHBV core IgM IA Qlon 08-73-6565MCAFGMPGP B CORE ANTIBODYNegativeNegativeNOCT HealthcareComment on above:Performed at: [facility] Lab[address] [id number] [employer] Referral Clerk: Jhoan Rich PhD, Phone: [phone] HBV surface Ab IA Qnon 09-75-0111WZTKDJKUX B SURFACE ANTIBODYReactive.[facility] HealthcareComment on above:Non Reactive: Not immune to HBV infection. Equivocal: Unable to determine if anti-HBs is present at levels consistent with immunity. Reactive: Anti-HBs concentration detected at greater than 10 mIU/mL. Individual is considered to be immune to infection with HBV. HEPATITIS B SURFACE ANTIGEN ([facility])on 68-50-8932PWFJD SCREENNegativeNegativeUniversity of Missouri Health CareHcv antibody rfx to quant pcron 56-54-2599DSTAGATBN C VIRUS ANTIBODY Non-ReactiveNon ReactiveNOCT HealthcareINTERPRETATION HEPATITIS CComment.[facility] HealthcareComment on above:Not infected with HCV unless early or acute infection is suspected (which may be delayed in an immunocompromised individual), or other evidence exists to indicate HCV infection. No Panel Informationon 70-63-7300CNOJ HealthcareCBC W Auto Differential panel (Bld)on 66-33-2509Lxlicajpe (Bld) [#/Vol]0 10*3/uL0.0 - 0.2 10*3/uLNOMS HealthcareBasophils/100 WBC Manual cnt (Syn fld)0.4 %.[facility] CareEosinophils (Bld) [#/Vol]0.4 10*3/uL0.0 - 0.45 10*3/uLNOMS HealthcareEosinophils/100 WBC Manual cnt (Syn fld)3.4 %.[facility] CareErythrocyte distribution width (RBC) [Ratio]14.5 %11.9 - 15.3 %[facility] CareHematocrit (Bld) [Volume fraction]40.8 %34.0 - 46.4 %[facility] CareHemoglobin (Bld) [Mass/Vol]13 g/dL11.8 - 15.4 g/dL [facility] CareInterpretation and review of laboratory resultsAbnormalUniversity of Missouri Health CareLymphocytes (Bld) [#/Vol]2.4 10*3/uL1.00 - 4.8 10*3/uLNOMS Healthcare Lymphocytes/100 WBC Manual cnt (Syn fld)23.7 %.[facility] CenterH (RBC) [Entitic mass]29 pg24.7 - 34.3 pgCameron Regional Medical CenterHC (RBC) [Mass/Vol]31.9 g/dLLow32.0 - 35.0 g/dLCameron Regional Medical CenterV (RBC) [Entitic vol]91 fL80 - 100 fLUniversity of Missouri Health Care Monocytes (Bld) [#/Vol]0.7 10*3/uL0.0 - 0.8 10*3/uLNOMS Healthcare Monocytes+Macrophages/100 WBC Manual cnt (Syn fld)6.3 %.[facility] Neutrophils (Bld) [#/Vol]6.8 10*3/uL1.8 - 7.7 10*3/uLNOCT Healthcare Neutrophils/100 WBC Manual cnt (Syn fld)66.2 %.NOMS HealthcareNRBC0 /100{WBC}0 - 0.5 /100{WBC}NOMS HealthcarePlatelet mean volume (Bld) [Entitic vol]7.5 fL6.3 - 10.7 fLNOMS HealthcarePlatelets (Bld) [#/Vol]158 10*3/uL150 - 450 10*3/uLNOCT HealthcareRBC LM.HPF (Urine sed) [#/Area]4.49 10*6/uL3.60 - 5.00 10*6/uLNOCT HealthcareWBC (Bld) [#/Vol]10.3 10*3/uL3.8 - 11.6 10*3/uLNOHawthorn Children's Psychiatric HospitalWBC LM.HPF (Urine sed) [#/Area]10.3 [CFU]/mL3.8 - 11.6 [CFU]/mLNOMS HealthcareNOCT HealthcareComplete Blood Count Auto Diffon 59-55-3840Qwivqnnpo (Bld) [#/Vol]0.0 10*3/uLNormal0.0-0.2The [facility] Physician GroupComment on above:Result Comment: PERFORMED BY:[address] [place], [place] [phone] MEDICAL DIRECTORELAINE CHAUDHARY M.D.Performed By: #### HBCAB, HBSAG, HCV RX PCR, HBSAB ####[facility] ,#### CMP, CBC ####[address] [address] [place] Basophils/100 WBC (Bld)0.4 %Normal.The [facility] Physician GroupComment on above:Performed By: #### HBCAB, HBSAG, HCV RX PCR, HBSAB ####[facility] ,#### CMP, CBC ####[address] [address] USAEosinophils (Bld) [#/Vol]0.4 10*3/uLNormal0.0-0.45 The [facility] Physician GroupComment on above:Performed By: #### HBCAB, HBSAG, HCV RX PCR, HBSAB ####[facility] ,#### CMP, CBC ####[place] [address] USAEosinophils/100 WBC (Bld)3.4 %Normal.The [facility] Physician GroupComment on above:Performed By: #### HBCAB, HBSAG, HCV RX PCR, HBSAB ####[facility] ,#### CMP, CBC ####[place] [address] USAErythrocyte distribution width (RBC) [Ratio]14.5 %Ukqodh50.9-15.3The [facility] Physician GroupComment on above:Performed By: #### HBCAB, HBSAG, HCV RX PCR, HBSAB ####[facility] ,#### CMP, CBC ####[place] [address] USAHematocrit (Bld) [Volume fraction]40.8 %Normal 34.0-46.4The [facility] Physician GroupComment on above:Performed By: #### HBCAB, HBSAG, HCV RX PCR, HBSAB ####[facility] ,#### CMP, CBC ####[place] [address] USAHemoglobin (Bld) [Mass/Vol]13.0 g/gUWqcwfu88.8-15.4The [facility] Physician GroupComment on above: Performed By: #### HBCAB, HBSAG, HCV RX PCR, HBSAB ####[facility] ,#### CMP, CBC ####[place] [address] USALymphocytes (Bld) [#/Vol]2.4 10*3/uLNormal1.00-4.8 The [facility] Physician GroupComment on above:Performed By: #### HBCAB, HBSAG, HCV RX PCR, HBSAB ####[facility] ,#### CMP, CBC ####[place] [address] USALymphocytes/100 WBC (Bld)23.7 %Normal.The [facility] Physician GroupComment on above:Performed By: #### HBCAB, HBSAG, HCV RX PCR, HBSAB ####[facility] ,#### CMP, CBC ####[address]H (RBC) [Entitic mass]29.0 cxNvihjv56.7-34.3The [facility] Physician GroupComment on above: Performed By: #### HBCAB, HBSAG, HCV RX PCR, HBSAB ####[facility] ,#### CMP, CBC ####[address]MCV (RBC) [Entitic vol]91.0 kGUuveht07-495Shi [facility] Physician GroupComment on above:Performed By: #### HBCAB, HBSAG, HCV RX PCR, HBSAB ####[facility] ,#### CMP, CBC ####[place] [address] USAMean Corpuscular HGB Conc31.9 g/dLLow32.0-35.0The [facility] Physician GroupComment on above:Performed By: #### HBCAB, HBSAG, HCV RX PCR, HBSAB ####[facility] ,#### CMP, CBC ####[place] [address] [place] Monocytes (Bld) [#/Vol]0.7 10*3/uLNormal0.0-0.8The [facility]ician Group Comment on above:Performed By: #### HBCAB, HBSAG, HCV RX PCR, HBSAB ####[facility] ,#### CMP, CBC ####[place] [id number] USAMonocytes/100 WBC (Bld)6.3 %Normal.The [facility] Physician GroupComment on above:Performed By: #### HBCAB, HBSAG, HCV RX PCR, HBSAB ####[facility] ,#### CMP, CBC ####[place] [address] USANeutrophils (Bld) [#/Vol]6.8 10*3/uL Normal1.8-7.7The [facility] Physician GroupComment on above:Performed By: #### HBCAB, HBSAG, HCV RX PCR, HBSAB ####[facility] ,#### CMP, CBC ####[place] [address] [place] Neutrophils/100 WBC (Bld)66.2 %Normal.The [facility] Physician GroupComment on above:Performed By: #### HBCAB, HBSAG, HCV RX PCR, HBSAB ####[facility] ,#### CMP, CBC ####[place] [address] USANRBC%0.0 /100{WBC}Normal0-0.5The [facility] Physician GroupComment on above:Performed By: #### HBCAB, HBSAG, HCV RX PCR, HBSAB ####[facility] ,#### CMP, CBC ####[place] [address] USAPlatelet mean volume (Bld) [Entitic vol]7.5 fL Normal6.3-10.7The [facility] Physician GroupComment on above:Performed By: #### HBCAB, HBSAG, HCV RX PCR, HBSAB ####[facility] ,#### CMP, CBC ####[place] [address] [place] Platelets (Bld) [#/Vol]158 10*3/cSYvstgx928-052Jlc [facility] Comment on above:Performed By: #### HBCAB, HBSAG, HCV RX PCR, HBSAB ####[facility] ,#### CMP, CBC ####[address] [address] USARBC (Bld) [#/Vol]4.49 10*6/uLNormal3.60-5.00The [facility] Physician GroupComment on above:Performed By: #### HBCAB, HBSAG, HCV RX PCR, HBSAB ####[facility] ,#### CMP, CBC ####[place] [address] USAWBC (Bld) [#/Vol]10.3 10*3/uL Normal3.8-11.6The [facility] Physician GroupComment on above:Performed By: #### HBCAB, HBSAG, HCV RX PCR, HBSAB ####[facility] ,#### CMP, CBC ####[place] [address] USAWhite Blood Count10.3 [CFU]/mLNormal3.8-11.6The [facility] Physician GroupComment on above:Performed By: #### HBCAB, HBSAG, HCV RX PCR, HBSAB ####[facility] ,#### CMP, CBC ####[place] [address] USAComprehensive Metabolic Panelon 82-26-7539Wllshdx [Mass/Vol]3.5 g/dLNormal3.5-5.7The [facility] Physician GroupComment on above: Performed By: #### HBCAB, HBSAG, HCV RX PCR, HBSAB ####[facility] ,#### CMP, CBC ####[place] [address] USAAlbumin/Globulin [Mass ratio]1.1 {ratio}NormalThe [facility] Physician GroupComment on above:Performed By: #### HBCAB, HBSAG, HCV RX PCR, HBSAB ####[facility] ,#### CMP, CBC ####[place] [address] USAALP [Catalytic activity/Vol] 165 U/KLyri88-610Mtp [facility] Physician GroupComment on above:Performed By: #### HBCAB, HBSAG, HCV RX PCR, HBSAB ####[facility] ,#### CMP, CBC ####[place] [address] USAALT [Catalytic activity/Vol]49 U/LNormal7-52The [facility] Physician GroupComment on above:Performed By: #### HBCAB, HBSAG, HCV RX PCR, HBSAB ####[facility] ,#### CMP, CBC ####[place] [address] USAAnion gap [Moles/Vol]12.0 mmol/LNormal6.0-15.0The [facility] Physician GroupComment on above:Performed By: #### HBCAB, HBSAG, HCV RX PCR, HBSAB ####[facility] ,#### CMP, CBC ####[place] [address] USAAST [Catalytic activity/Vol]22 U/BGqchps02-39Vmo [facility] Physician GroupComment on above:Performed By: #### HBCAB, HBSAG, HCV RX PCR, HBSAB ####[facility] ,#### CMP, CBC ####[place] [address] [place] Bilirubin [Mass/Vol]0.3 mg/dLNormal0.3-1.0The [facility] Physician GroupComment on above:Performed By: #### HBCAB, HBSAG, HCV RX PCR, HBSAB ####[facility] ,#### CMP, CBC ####[address] [address] USACalcium [Mass/Vol]9.0 mg/dLNormal8.6-10.3The [facility] Physician GroupComment on above:Performed By: #### HBCAB, HBSAG, HCV RX PCR, HBSAB ####[facility] ,#### CMP, CBC ####[place] [address] USAChloride [Moles/Vol]93 mmol/L Gsc14-002Jzl [facility] Physician GroupComment on above:Performed By: #### HBCAB, HBSAG, HCV RX PCR, HBSAB ####[facility] ,#### CMP, CBC ####[place] [address] USACO2 [Moles/Vol]35.5 mmol/LHigh21.0-31.0The [facility] Physician GroupComment on above:Performed By: #### HBCAB, HBSAG, HCV RX PCR, HBSAB ####[facility] ,#### CMP, CBC ####[place] [address] [place] Creatinine [Mass/Vol]1.38 mg/dLHigh0.60-1.20The [facility] Physician GroupComment on above:Performed By: #### HBCAB, HBSAG, HCV RX PCR, HBSAB ####[facility] ,#### CMP, CBC ####[place] [address] USACreatinine Clr Calc Ctywvejs19.57NormalThe [facility] Physician GroupComment on above:Result Comment: PERFORMED BY:[address] [place], [place] [phone] MEDICAL DIRECTORELAINE CHAUDHARY M.D.Performed By: #### HBCAB, HBSAG, HCV RX PCR, HBSAB ####[facility] ,#### CMP, CBC ####[facility]vm[address] [place] [address] USAGFR/1.73 sq M.predicted MDRD (S/P/Bld) [Vol rate/Area]42.215 mL/min/{1.73_m2}NormalThe [facility] Physician GroupComment on above:Performed By: #### HBCAB, HBSAG, HCV RX PCR, HBSAB ####[facility] ,#### CMP, CBC ####[place] [address] USAGlobulin (S) [Mass/Vol]3.3 g/dLNormalThe [facility] Physician GroupComment on above:Performed By: #### HBCAB, HBSAG, HCV RX PCR, HBSAB ####[facility] ,#### CMP, CBC ####[place] [address] USAGlucose [Mass/Vol]551 mg/dLOff scale ogoy39-132Ueo [facility] Physician GroupComment on above:Result Comment: Critical Result Called to and read back by: ROXANE LEONE/DMITRY at: 11/10/2024 15:42:37 by:Pao [id number] Random Glucose Reference Range is dependent on time and content of last meal. Glucose of morethan 200 mg/dL in a nonstressed, ambulatory subject supports the diagnosis of Diabetes Mellitus. ADA recommended reference range Performed By: #### HBCAB, HBSAG, HCV RX PCR, HBSAB ####[facility] ,#### CMP, CBC ####[place] [address] USAPotassium [Moles/Vol]3.5 mmol/LNormal3.5-5.1The [facility] GroupComment on above:Performed By: #### HBCAB, HBSAG, HCV RX PCR, HBSAB ####[facility] ,#### CMP, CBC ####[place] [address] USAProtein [Mass/Vol]6.8 g/dL Normal6.4-8.9The [facility] Physician GroupComment on above:Performed By: #### HBCAB, HBSAG, HCV RX PCR, HBSAB ####[facility] ,#### CMP, CBC ####[place] [place] [address] USASodium [Moles/Vol]137 mmol/CSlrgrj678-736Avs [facility] Physician GroupComment on above: Performed By: #### HBCAB, HBSAG, HCV RX PCR, HBSAB ####[facility] ,#### CMP, CBC ####[place] [address] USAUrea nitrogen [Mass/Vol]28 mg/dLHigh7-25The [facility] Physician GroupComment on above:Performed By: #### HBCAB, HBSAG, HCV RX PCR, HBSAB ####[facility] ,#### CMP, CBC ####[place] [address] USAComprehensive metabolic panel on 94-08-4409Yzbuqzo [Mass/Vol]3.5 g/dL3.5 - 5.7 g/dLNOCT Healthcare Albumin/Globulin [Mass ratio]1.1 {ratio}NOMS HealthcareALP [Catalytic activity/Vol]165 U/LHigh34 - 104 U/LNOMS HealthcareALT [Catalytic activity/Vol] 49 U/L7 - 52 U/LNOMS HealthcareAnion gap [Moles/Vol]12 mmol/L6.0 - 15.0NOCT HealthcareAST [Catalytic activity/Vol]22 U/L13 - 39 U/LNOMS HealthcareBilirubin [Mass/Vol]0.3 mg/dL0.3 - 1.0 mg/dLNOCT HealthcareCalcium [Mass/Vol]9 mg/dL8.6 - 10.3 mg/dLNOCT HealthcareChloride [Moles/Vol]93 mmol/LLow98 - 107 mmol/LNOMS HealthcareCO2 [Moles/Vol]35.5 mmol/LHigh21.0 - 31.0 mmol/LNOMS Healthcare Creatinine (U) [Mass/Vol]1.38 mg/dLHigh0.60 - 1.20 mg/dLNOCT Healthcare CREATININE CLR CALC ULYCTYUQ87.57NOMS HealthcareGFR/1.73 sq M.predicted MDRD (S/P/Bld) [Vol rate/Area]42.215 mL/min/{1.73_m2}NOMS HealthcareGlobulin (S) [Mass/Vol]3.3 g/dLNOMS HealthcareGlucose [Mass/Vol]551 mg/dLCritically high70 - 100 mg/dLNOMS HealthcareComment on above:Critical Result Called to and read back by: ROXANE LEONE/DMITRY at: 11/10/2024 15:42:37 by:[id number] Random Glucose Reference Range is dependent on time and content of last meal. Glucose of more than 200 mg/dL in a nonstressed, ambulatory subject supports the diagnosis of Diabetes Mellitus. ADA recommended reference range Interpretation and review of laboratory resultsAbnormalNOMS HealthcarePotassium [Moles/Vol]3.5 mmol/L3.5 - 5.1 mmol/LNOMS HealthcareProtein [Mass/Vol]6.8 g/dL 6.4 - 8.9 g/dLNOMS HealthcareSodium [Moles/Vol]137 mmol/L136 - 145 mmol/LNOMS HealthcareUrea nitrogen [Mass/Vol]28 mg/dLHigh7 - 25 mg/dLNOMS HealthcareNOMS HealthcareDaratumumab Molecular Genotypeon [phone] Molecular GenotypeNormOhioHealthe [facility] Hospital Physician GroupComment on above:Result Comment: sent to [facility] on 11/10/24PERFORMED BY:[address] [place] [address] [address] [place], [place] [phone] MEDICAL DIRECTORELAINE CHAUDHARY M.D. Hep C Ab wRfx to Qnt PCRon 26-06-0947Biegilgjf C Virus AntibodyNon-Reactive NormalNon ReactiveThe James E. Van Zandt Veterans Affairs Medical CenterComment on above:Performed By: #### HBCAB, HBSAG, HCV RX PCR, HBSAB ####[facility] ,#### CMP, CBC ####[facility] [address] Shoemakerpending [place] [address] [facility] Interpretation Hepatitis CCommentNormal.The [facility] Physician GroupComment on above:Result Comment: Not infected with HCV unless early or acute infection is suspected (which may be delayed in an immunocompromised individual), or other evidence exists to indicate HCV infection.Performed By: #### HBCAB, HBSAG, HCV RX PCR, HBSAB ####[facility] ,#### CMP, CBC ####[place] [id number] USAHepatitis B Core Antibodyon 87-82-2651Xsreztoqh B Core AntibodyNegativeNormalNegativeThe [facility] Physician GroupComment on above:Result Comment: Performed at: - [facility] [id number] [employer] Referral Clerk: Jhoan Rich PhD, Phone: [phone] By: #### HBCAB, HBSAG, HCV RX PCR, HBSAB ####[facility] ,#### CMP, CBC ####[place] [address] USAHepatitis B Surface Antibodyon 96-78-9055Mjajivdow B Surface AntibodyReactiveNormal.The [facility] Physician GroupComment on above: Result Comment: Non Reactive: Not immune to HBV infection. Equivocal: Unable to determine if anti-HBs is present at levels consistent with immunity. Reactive: Anti-HBs concentration detected at greater than 10 mIU/mL. Individual is considered to be immune to infection with HBV.Performed By: #### HBCAB, HBSAG, HCV RX PCR, HBSAB ####[facility] ,#### CMP, CBC ####[place] [id number] USAHepatitis B Surface Antigenon 65-75-8526UUzIz ScreenNegativeNormalNegativeThe [facility] Comment on above:Result Comment: PERFORMED BY:[address] [place], [place] [phone] MEDICAL DIRECTORELAINE CHAUDHARY M.D.Performed By: #### HBCAB, HBSAG, HCV RX PCR, HBSAB ####[facility] ,#### CMP, CBC ####[address] [address] USAHepatitis C virus IgG Ab [Presence] in Serum or Plasma by ImmunoassayOrdered By: Roxane Bills on 08-69-1745XPB IgG IA Ql Non-ReactiveNon ReactiveMercy HealthNo Panel Information Ordered By: Roxane Bills on 65-17-3341Zpmxdyp.[facility] Serum hepatitis B virus surface antibody detectionOrdered By: Roxane Bills on 36-26-8754WQM surface Ab Ql (S)Reactive.[facility]MC Healthcare Systemerum or plasma hepatitis B virus surface antigen detection by immunoassayOrdered By: Roxane Bills on 84-61-6875XBZ surface Ag IA QlNegativeNegativeMercy HealthType and Screenon 00-30-7352WTP and Rh group Nom (Bld)Blood group A Rh(D) positiveNormalThe James E. Van Zandt Veterans Affairs Medical CenterComprehensive Metabolic Panel on 75-54-1970Ewvdveu [Mass/Vol]4.1 g/dLNormal3.5-5.7The [facility] Physician GroupComment on above:Performed By: #### CMP, URIC ####[place] [id number] USAAlbumin/Globulin [Mass ratio] 1.1 {ratio}NormalThe [facility] Physician [facility] Watkins Memorial HospitalComment on above:Performed By: #### CMP, URIC ####[address] [address] USAALP [Catalytic activity/Vol]149 U/RJhwz66-554Gyh [facility] Physician GroupComment on above:Performed By: #### CMP, URIC ####[address] [address] USAALT [Catalytic activity/Vol]42 U/LNormal7-52The [facility] Physician GroupComment on above:Performed By: #### CMP, URIC ####[address] [address] USAAnion gap [Moles/Vol]12.6 mmol/LNormal6.0-15.0The [facility] Comment on above:Performed By: #### CMP, URIC ####[address] [address] USAAST [Catalytic activity/Vol]23 U/L Utougl34-72Zkx [place] Physician [facility] Watkins Memorial HospitalComment on above:Performed By: #### CMP, URIC ####[address] Bilirubin [Mass/Vol]0.3 mg/dLNormal0.3-1.0[facility] Physician GroupComment on above:Performed By: #### CMP, URIC ####[place] [address] USACalcium [Mass/Vol]9.0 mg/dLNormal8.6-10.3The [facility] Physician GroupComment on above:Performed By: #### CMP, URIC ####[place] [address] [place] Chloride [Moles/Vol]98 mmol/GYrzpwb37-507Lat [facility] Physician [facility] Watkins Memorial HospitalComment on above:Performed By: #### CMP, URIC ####[place] [address] USACO2 [Moles/Vol]33.6 mmol/LHigh21.0-31.0The [facility] Physician GroupComment on above:Performed By: #### CMP, URIC ####[address] Creatinine [Mass/Vol]1.33 mg/dLHigh0.60-1.20The [facility] Physician [facility] Watkins Memorial HospitalComment on above:Performed By: #### CMP, URIC ####[place] [address] USACreatinine Clr Calc Kdbzorjj75.51NormalThe [facility] Physician [facility]. [facility]. Watkins Memorial HospitalComment on above:Performed By: #### CMP, URIC ####[place] [address] [place] GFR/1.73 sq M.predicted MDRD (S/P/Bld) [Vol rate/Area]44.401 mL/min/{1.73_m2} NormalColumbia Miami [facility] Institute Physician H. [facility]. Watkins Memorial HospitalComment on above:Performed By: #### CMP, URIC ####[address] [place] [address] [place] Globulin (S) [Mass/Vol]3.6 g/dLNormalThe [facility] Physician GroupComment on above:Performed By: #### CMP, URIC ####[place] [address] USAGlucose [Mass/Vol]292 mg/xBRjiq91-762Dfw [facility] Physician GroupComment on above:Result Comment: Random Glucose Reference Range is dependent on time and content of last meal. Glucose of more than 200 mg/dL in a nonstressed, ambulatory subject supports the diagnosis of Diabetes Mellitus. ADA recommended reference rangePerformed By: #### CMP, URIC ####[place] [address] USAPotassium [Moles/Vol] 4.2 mmol/LNormal3.5-5.1The [facility] Physician GroupComment on above:Performed By: #### CMP, URIC ####[place] [address] USAProtein [Mass/Vol]7.7 g/dLNormal6.4-8.9The [facility] Comment on above:Performed By: #### CMP, URIC ####[place] [address] USASodium [Moles/Vol]140 mmol/LNormal 136-145The [facility] Physician GroupComment on above:Performed By: #### CMP, URIC ####[place] [address] [place] Urea nitrogen [Mass/Vol]33 mg/dLHigh7-25The [facility] Physician GroupComment on above:Performed By: #### CMP, URIC ####[place] [address] USAComprehensive metabolic panelon 16-79-1769Fmjvlhh [Mass/Vol]4.1 g/dL3.5 - 5.7 g/dLNOMS HealthcareAlbumin/Globulin [Mass ratio]1.1 {ratio}NOMS HealthcareALP [Catalytic activity/Vol]149 U/LHigh34 - 104 U/LNOMS HealthcareALT [Catalytic activity/Vol]42 U/L7 - 52 U/LNOMS HealthcareAnion gap [Moles/Vol]12.6 mmol/L6.0 - 15.0NOMS HealthcareAST [Catalytic activity/Vol]23 U/L13 - 39 U/LNOMS HealthcareBilirubin [Mass/Vol]0.3 mg/dL0.3 - 1.0 mg/dLNOMS HealthcareCalcium [Mass/Vol]9 mg/dL8.6 - 10.3 mg/dLNOMS HealthcareChloride [Moles/Vol]98 mmol/L98 - 107 mmol/LNOMS HealthcareCO2 [Moles/Vol]33.6 mmol/LHigh 21.0 - 31.0 mmol/LNOMS HealthcareCreatinine (U) [Mass/Vol]1.33 mg/dLHigh0.60 - 1.20 mg/dLNOCT HealthcareCREATININE CLR CALC REYYPUPD31.51NOMS Healthcare GFR/1.73 sq M.predicted MDRD (S/P/Bld) [Vol rate/Area]44.401 mL/min/{1.73_m2} NOMS HealthcareGlobulin (S) [Mass/Vol]3.6 g/dLNOCT HealthcareGlucose [Mass/Vol] 292 mg/uRDuna42 - 100 mg/dLNOCT HealthcareComment on above:Random Glucose Reference Range is dependent on time and content of last meal. Glucose of more than 200 mg/dL in a nonstressed, ambulatory subject supports the diagnosis of Diabetes Mellitus. ADA recommended reference range Potassium [Moles/Vol]4.2 mmol/L3.5 - 5.1 mmol/LNOMS HealthcareProtein [Mass/Vol] 7.7 g/dL6.4 - 8.9 g/dLNOCT HealthcareSodium [Moles/Vol]140 mmol/L136 - 145 mmol/LNOMS HealthcareUrea nitrogen [Mass/Vol]33 mg/dLHigh7 - 25 mg/dLNOCT HealthcareNo Panel Informationon 27-47-3017Vzaonhngqupuyo and review of laboratory resultsAbnormalNOHawthorn Children's Psychiatric HospitalNOMS HealthcarePET NaF bone init (nopr) on 20-31-7781TMZ NaF bone init (nopr)NormalThe [facility] Physician GroupUrate [Mass/volume] in Serum or PlasmaOrdered By: Roxane Bills on 94-46-6535Zwhfe [Mass/Vol]6.7 mg/dLHigh2.3-6.6FAvita Health System Galion HospitalComment on above: Result Comment: PERFORMED BY:[address] [address] [address], [place] [phone] MEDICAL LEESA CHAUDHARY M.D.Performed By: #### CMP, URIC ####[place] [address] [place] [address] USAUric acidon 84-52-9991Qiuho [Mass/Vol]6.7 mg/dLHigh 2.3 - 6.6 mg/dLNOCT HealthcarePATHOLOGY REQUEST FOR LAB CORPon 09-22-2024 PATHOLOGY REQUEST FOR LAB CORPUniversity of Missouri Health CareComment on above:See report. Scanned copy available in EMR.NOMS HealthcareBasophils [#/volume] in Blood by Automated countOrdered By: Roxane Bills on 97-08-1433Uguxpgykw (Bld) [#/Vol]0.1 10*3/uLNormal0.0-0.2FAvita Health System Galion HospitalComment on above:Order Comment: STAT FOR BXResult Comment: PERFORMED BY:[address] [address] [address] [place], [place] [phone] MEDICAL LEESA CHAUDHARY M.D.Performed By: #### PP, CBC ####[address] [address] USABasophils/100 leukocytes in Blood by Automated countOrdered By: Roxane Bills on 48-89-1725Qucbnljfr/100 WBC (Bld)0.6 %Normal.Mercy HealthComment on above:Order Comment: STAT FOR BXPerformed By: #### PP, CBC ####[address] [address] USACBC W Auto Differential panel (Bld)on 44-48-8354Bdrkoctwl (Bld) [#/Vol]0.1 10*3/uL0.0 - 0.2 10*3/uLNOMS Healthcare Basophils/100 WBC Manual cnt (Syn fld)0.6 %.NOMS HealthcareEosinophils (Bld) [#/Vol]0.4 10*3/uL0.0 - 0.45 10*3/uLNOMS HealthcareEosinophils/100 WBC Manual cnt (Syn fld)3.8 %.[facility] Health CareErythrocyte distribution width (RBC) [Ratio] 15.5 %High11.9 - 15.3 %[facility] Health CareHematocrit (Bld) [Volume fraction]40.6 % 34.0 - 46.4 %[facility] CareHemoglobin (Bld) [Mass/Vol]13 g/dL11.8 - 15.4 g/dL [facility] CareInterpretation and review of laboratory resultsAbnormalUniversity of Missouri Health CareLymphocytes (Bld) [#/Vol]3.2 10*3/uL1.00 - 4.8 10*3/uLNOMS Healthcare Lymphocytes/100 WBC Manual cnt (Syn fld)28.8 %.[facility] Health CareMCH (RBC) [Entitic mass]28.4 pg24.7 - 34.3 pgCameron Regional Medical CenterHC (RBC) [Mass/Vol]32 g/dL32.0 - 35.0 g/dLCameron Regional Medical CenterV (RBC) [Entitic vol]88.9 fL80 - 100 fLUniversity of Missouri Health Care Monocytes (Bld) [#/Vol]0.7 10*3/uL0.0 - 0.8 10*3/uLNOCT Healthcare Monocytes+Macrophages/100 WBC Manual cnt (Syn fld)6.4 %.[facility] Neutrophils (Bld) [#/Vol]6.8 10*3/uL1.8 - 7.7 10*3/uLNOMS Healthcare Neutrophils/100 WBC Manual cnt (Syn fld)60.4 %.[facility] Health CareNRBC0.1 /100{WBC}0 - 0.5 /100{WBC}[facility] Health CarePlatelet mean volume (Bld) [Entitic vol]6.9 fL6.3 - 10.7 fLBEAVER VALLEY HOSPITAL HealthcarePlatelets (Bld) [#/Vol]227 10*3/uL150 - 450 10*3/uLNOMS HealthcareRBC LM.HPF (Urine sed) [#/Area]4.56 10*6/uL3.60 - 5.00 10*6/uLNOMS HealthcareWBC (Bld) [#/Vol]11.3 10*3/uL3.8 - 11.6 10*3/uLNOCT HealthcareWBC LM.HPF (Urine sed) [#/Area]11.3 10*3/uL3.8 - 11.6 10*3/uLNOMS HealthcareSTAT FOR BXDELAWARE COUNTY MEMORIAL [facility]OS[facility]ITAL HealthcareCOAGULATION PROFILEon 08-47-1012rUHP Coag (Bld) [Time]29.9 s25.1 - 36.5 [facility] HealthcareComment on above:A hematocrit value greater than 55% may lead to inaccurate results in coagulation testing. Patients having hematocrit values >55% require a special collection tube for coagulation studies. Please contact the laboratory at [phone] for redraw instructions. INR Coag (PPP) [Relative time]1 {INR}[facility] HealthcareComment on above:INR Therapeutic Range A) Pre- and Peroperative OAT started two weeks before surgery. NOT HIP SURGERY: 1.5 - 2.5 HIP SURGERY: 2 - 3 B) Primary and secondary prevention of venous THROMBOSIS: 2 - 3 C) Active venous thrombosis, pulmonary embolism and prevention of recurrent venous thrombosis: 2 - 3 D) Prevention of arterial thromboembolism including patients with mechanical heart valves: 3 - 4.5 PT Coag (PPP) [Time]11.8 s9.0 - 12.9 [facility] HospitalComment on above:A hematocrit value greater than 55% may lead to inaccurate results in coagulation testing. Patients having hematocrit values >55% require a special collection tube for coagulation studies. Please contact the laboratory at [phone] for redraw instructions. STAT FOR BXTrinity Health System West CampusCT guided bone marrow bx/aspiron 21-74-1569FM guided bone marrow bx/aspirNormalThe [facility] Physician GroupCoagulation Profileon 41-95-7492lHBU Coag (Bld) [Time]29.9 uNpangt87.1-36.5The [facility] Physician GroupComment on above:Order Comment: STAT FOR BXResult Comment: A hematocrit value greater than 55% may lead to inaccurate results in coagulation testing. Patients having hematocrit values >55% require a special collection tube for coagulation studies. Please contact the laboratory at [phone] for redraw instructions.PERFORMED BY:[facility] [place], [place] [phone] MEDICAL DIRECTORELAINE CHAUDHARY M.D.Performed By: #### PP, CBC ####[address] [address] USAComplete Blood Count Auto Diffon 08-15-0595Sqgx Corpuscular HGB Conc32.0 g/bNMvpjba34.0-35.0The [facility] Physician GroupComment on above:Order Comment: STAT FOR BXPerformed By: #### PP, CBC ####[address] [address] USANRBC%0.1 /100{WBC} Normal0-0.5The [facility] Physician GroupComment on above:Order Comment: STAT FOR BXPerformed By: #### PP, CBC ####[address] [address] USAComprehensive Metabolic Panelon 38-05-2703Bxmmzrt [Mass/Vol]3.7 g/dLNormal3.5-5.7The [facility] Physician GroupComment on above: Performed By: #### CMP, URIC ####[address] [address] USAAlbumin/Globulin [Mass ratio]0.9 {ratio}NormalThe [facility] Physician GroupComment on above:Performed By: #### CMP, URIC ####[address] [address] USAALP [Catalytic activity/Vol]147 U/PFhwh63-867Yhu [facility] Physician GroupComment on above:Performed By: #### CMP, URIC ####[address] [address] USAALT [Catalytic activity/Vol]34 U/LNormal7-52The [facility] Physician GroupComment on above:Performed By: #### CMP, URIC ####[address] [address] USAAnion gap [Moles/Vol]12.2 mmol/LNormal6.0-15.0The [facility] Physician GroupComment on above:Performed By: #### CMP, URIC ####[address] [address] USAAST [Catalytic activity/Vol]27 U/FYcmfia43-42Tby [facility] Physician GroupComment on above:Performed By: #### CMP, URIC ####[address] [address] [place] Bilirubin [Mass/Vol]0.3 mg/dLNormal0.3-1.0The [facility] Physician GroupComment on above:Performed By: #### CMP, URIC ####[address] [address] USACalcium [Mass/Vol]9.2 mg/dLNormal8.6-10.3The [facility] Physician GroupComment on above:Performed By: #### CMP, URIC ####[address] [address] [place] Chloride [Moles/Vol]98 mmol/VXcwyqu25-110Eku [facility] Physician GroupComment on above:Performed By: #### CMP, URIC ####[address] [address] USACO2 [Moles/Vol]34.2 mmol/LHigh21.0-31.0The [facility] Physician GroupComment on above:Performed By: #### CMP, URIC ####[address] [address] [place] Creatinine [Mass/Vol]1.36 mg/dLHigh0.60-1.20The [facility] Physician GroupComment on above:Performed By: #### CMP, URIC ####[address] [address] USACreatinine Clr Calc Djagzgvg76.49NormOhioHealthe [facility] Physician GroupComment on above:Performed By: #### CMP, URIC ####[address] [address] [place] Estimated GFR43.228 mL/MinNoUNC Hospitals Hills[facility] Campus Physician GroupComment on above: Performed By: #### CMP, URIC ####[place] [id number] USAGlobulin (S) [Mass/Vol]3.9 g/dLNoUNC Hospitals Hillsborough Campus Physician GroupComment on above:Performed By: #### CMP, URIC ####[place] [address] USAGlucose [Mass/Vol]252 mg/cKHopa07-940Xxw [facility] Physician GroupComment on above:Result Comment: Random Glucose Reference Range is dependent on time and content of last meal. Glucose of more than 200 mg/dL in a nonstressed, ambulatory subject supports the diagnosis of Diabetes Mellitus. ADA recommended reference rangePerformed By: #### CMP, URIC ####[place] [address] USAPotassium [Moles/Vol]4.4 mmol/LNormal3.5-5.1The [facility] Physician GroupComment on above:Performed By: #### CMP, URIC ####[place] [address] USAProtein [Mass/Vol]7.6 g/dL Normal6.4-8.9The [facility] Physician GroupComment on above:Performed By: #### CMP, URIC ####[place] [address] USASodium [Moles/Vol]140 mmol/HLuliwa663-012Wyf [facility] Physician GroupComment on above:Performed By: #### CMP, URIC ####[place] [address] USAUrea nitrogen [Mass/Vol]21 mg/dLNormal7-25The [facility] Physician GroupComment on above:Performed By: #### CMP, URIC ####[place] [id number] [facility] Comprehensive metabolic panelon 63-14-6753Nnrpqcx [Mass/Vol]3.7 g/dL3.5 - 5.7 g/dLNOMS HealthcareAlbumin/Globulin [Mass ratio]0.9 {ratio}NOMS HealthcareALP [Catalytic activity/Vol]147 U/LHigh34 - 104 U/LNOMS HealthcareALT [Catalytic activity/Vol]34 U/L7 - 52 U/LNOMS HealthcareAnion gap [Moles/Vol]12.2 mmol/L6.0 - 15.0 meq/LNOMS HealthcareAST [Catalytic activity/Vol]27 U/L13 - 39 U/LNOMS HealthcareBilirubin [Mass/Vol]0.3 mg/dL0.3 - 1.0 mg/dLNOMS HealthcareCalcium [Mass/Vol]9.2 mg/dL8.6 - 10.3 mg/dLNOMS HealthcareChloride [Moles/Vol]98 mmol/L 98 - 107 mmol/LNOMS HealthcareCO2 [Moles/Vol]34.2 mmol/LHigh21.0 - 31.0 mmol/L N[facility] HealthcareCreatinine (U) [Mass/Vol]1.36 mg/dLHigh0.60 - 1.20 mg/dLNOMS HealthcareCREATININE CLR CALC TTOXGUQY86.49NOMS HealthcareGFR/1.73 sq M.predicted MDRD (S/P/Bld) [Vol rate/Area]43.228 mL/min/{1.73_m2}mL/MinNOMS HealthcareGlobulin (S) [Mass/Vol]3.9 g/dLNOMS HealthcareGlucose [Mass/Vol]252 mg/nPBtpg75 - 100 mg/dLNOCT HealthcareComment on above:Random Glucose Reference Range is dependent on time and content of last meal. Glucose of more than 200 mg/dL in a nonstressed, ambulatory subject supports the diagnosis of Diabetes Mellitus. ADA recommended reference range Interpretation and review of laboratory resultsAbnormalNOMS HealthcarePotassium [Moles/Vol]4.4 mmol/L3.5 - 5.1 mmol/LNOMS HealthcareProtein [Mass/Vol]7.6 g/dL 6.4 - 8.9 g/dLNOCT HealthcareSodium [Moles/Vol]140 mmol/L136 - 145 mmol/LNOMS HealthcareUrea nitrogen [Mass/Vol]21 mg/dL7 - 25 mg/dLNOCT HealthcareEosinophils [#/volume] in Blood by Automated countOrdered By: Roxane Bills on 09-19-2024 Eosinophils (Bld) [#/Vol]0.4 10*3/uLNormal0.0-0.45Mercy HealthComment on above:Order Comment: STAT FOR BXPerformed By: #### PP, CBC ####[place] [id number] [place] Eosinophils/100 leukocytes in Blood by Automated countOrdered By: Roxane Bills on 36-94-2611Qdpyzmomdfa/100 WBC (Bld)3.8 %Normal.[facility] Comment on above:Order Comment: STAT FOR BXPerformed By: #### PP, CBC ####[place] [id number] [place] Erythrocyte distribution width [Ratio] by Automated countOrdered By: Roxane Bills on 69-04-5055Twoloxlzpwk distribution width (RBC) [Ratio]15.5 %High11.9-15.3 Mercy HealthComment on above:Order Comment: STAT FOR BX Performed By: #### PP, CBC ####[place] [address] USAErythrocytes [#/volume] in Blood by Automated count Ordered By: Roxane Bills on 44-96-0156HWJ (Bld) [#/Vol]4.56 10*6/uLNormal3.60-5.00 [facility] HealthComment on above:Order Comment: STAT FOR BX Performed By: #### PP, CBC ####[place] [id number] USAHematocrit [Volume Fraction] of Blood by Automated countOrdered By: Roxane Bills on 18-86-3082Latyzmhlux (Bld) [Volume fraction]40.6 % Lsvwoo25.0-46.4FAvita Health System Galion HospitalComment on above:Order Comment: STAT FOR BXPerformed By: #### PP, CBC ####[place] [id number] USAHemoglobin [Mass/volume] in BloodOrdered By: Roxane Bills on 79-02-2222Xkomlvdduj (Bld) [Mass/Vol]13.0 g/bMRjpdxh71.8-15.4 [facility] HealthComment on above:Order Comment: STAT FOR BX Performed By: #### PP, CBC ####[place] [address] [place] [address] USAINR in Platelet poor plasma by Coagulation assay Ordered By: Roxane Bills on 29-19-9940EZH Coag (PPP) [Relative time]1.0 {INR}Normal Mercy HealthComment on above:INR Therapeutic Range A) Pre- and Peroperative OAT started two weeks before surgery. NOT HIP SURGERY: 1.5 - 2.5 HIP SURGERY: 2 - 3B) Primary and secondary prevention of venous THROMBOSIS: 2 - 3C) Active venous thrombosis, pulmonary embolismand prevention of recurrent venous thrombosis: 2 - 3D) Prevention of arterial thromboembolismincluding patients with mechanical heart valves: 3 - 4.5Order Comment: STAT FOR BXResult Comment: INR Therapeutic Range A) Pre- and [...] patients with mechanical heart valves: 3 - 4.5Performed By: #### PP, CBC ####[address] [place] [address] USALeukocytes [#/volume] corrected for nucleated erythrocytes in Blood by Automated counOrdered By: Roxane Bills on 98-97-9780DHM corrected for nucl RBC Auto (Bld) [#/Vol]11.3 10*3/uL3.8-11.6FAvita Health System Galion HospitalLeukocytes [#/volume] in Blood by Automated countOrdered By: Roxane Bills on 28-66-6711FDI (Bld) [#/Vol]11.3 10*3/uLNormal3.8-11.6FAvita Health System Galion HospitalComment on above:Order Comment: STAT FOR BXPerformed By: #### PP, CBC ####[address] [place] [address] [place] Lymphocytes [#/volume] in Blood by Automated countOrdered By: Roxane Bills on 44-15-8211Ihinlrlpkwj (Bld) [#/Vol]3.2 10*3/uLNormal1.00-4.8Mercy HealthComment on above:Order Comment: STAT FOR BXPerformed By: #### PP, CBC ####[address] [address] [place] Lymphocytes/100 leukocytes in Blood by Automated countOrdered By: Roxane Bills on 62-90-6120Jmrxsbhjaax/100 WBC (Bld)28.8 %Normal.Mercy HealthComment on above:Order Comment: STAT FOR BXPerformed By: #### PP, CBC ####[address] [address] [facility] [place] [Entitic mass] by Automated countOrdered By: Roxane Bills on 55-94-8211TAT (RBC) [Entitic mass]28.4 udYkdcvo09.7-34.3FAvita Health System Galion HospitalComment on above:Order Comment: STAT FOR BXPerformed By: #### PP, CBC ####[address] [address] [facility] Auto (RBC) [Mass/Vol]Ordered By: Roxane Bills on 52-15-5683UNBB (RBC) [Mass/Vol]32.0 g/dL 32.0-35.0[facility] HospitalV [Entitic volume] by Automated countOrdered By: Roxane Bills on 97-61-8820XQA (RBC) [Entitic vol]88.9 fLNormal 80-100Mercy HealthComment on above:Order Comment: STAT FOR BXPerformed By: #### PP, CBC ####[place] [id number] USAMonocytes [#/volume] in Blood by Automated count Ordered By: Roxane Bills on 77-25-5872Rqvaarbvk (Bld) [#/Vol]0.7 10*3/uLNormal 0.0-0.8Mercy HealthComment on above:Order Comment: STAT FOR BXPerformed By: #### PP, CBC ####[address] [address] USAMonocytes/100 leukocytes in Blood by Automated count Ordered By: Roxane Bills on 49-31-0577Reipkgqkd/100 WBC (Bld)6.4 %Normal.Mercy HealthComment on above:Order Comment: STAT FOR BXPerformed By: #### PP, CBC ####[address] [place] [address] USANeutrophils [#/volume] in Blood by Automated countOrdered By: Roxane Bills on 63-13-1088Vwoehfqiqyk (Bld) [#/Vol]6.8 10*3/uLNormal1.8-7.7FAvita Health System Galion HospitalComment on above:Order Comment: STAT FOR BXPerformed By: #### PP, CBC ####[address] [place] [address] USANeutrophils/100 leukocytes in Blood by Automated countOrdered By: Roxane Bills on 51-26-1313Rejvvacjixo/100 WBC (Bld)60.4 %Normal.Mercy HealthComment on above:Order Comment: STAT FOR BXPerformed By: #### PP, CBC ####[address] [address] USANo Panel InformationOrdered By: Roxane Bills on 46-78-8950Iwlbodxeqwnuo Pathology Test See commentMercy HealthComhenry ford west [facility] on above:See report. Scanned copy available in EMR.See commentMercy HealthNo Panel Informationon [id number] HealthcareNucleated erythrocytes [Presence] in Blood by Automated countOrdered By: Roxane Bills on 85-90-1769Tseetycom RBC Auto Ql (Bld)0.1 /100{WBC}0-0.5FAvita Health System Galion HospitalPathology Request for Lab Corpon [id number] Request for Lab CorpNormAdventHealth Ocala Physician GroupComment on above:Result Comment: See report. Scanned copy available in EMR.PERFORMED BY:[address]GAG[address] DE LEÓNUSKPOWELL [place], [place] [phone] MEDICAL DIRECTORELAINE CHAUDHARY M.D.Performed By: #### PATH TO [facility] ####[address] [place] [address] USAPlatelet mean volume [Entitic volume] in Blood by Automated countOrdered By: Roxane Bills on 19-70-8474Ebpxyjuq mean volume (Bld) [Entitic vol]6.9 fLNormal6.3-10.7FAvita Health System Galion HospitalComment on above:Order Comment: STAT FOR BXPerformed By: #### PP, CBC ####[address] [address] USAPlatelets [#/volume] in Blood by Automated countOrdered By: Roxane Bills on 45-83-1098Oqxulpiqg (Bld) [#/Vol]227 10*3/xGWptzaq103-118KmtbfixmfMercy HealthComment on above:Order Comment: STAT FOR BXPerformed By: #### PP, CBC ####[address] [address] USAProthrombin time (PT) Ordered By: Roxane Bills on 52-58-5770IR Coag (PPP) [Time]11.8 sNormal9.0-12.9 Mercy HealthComment on above:A hematocrit value greater than 55% may lead to inaccurate results in coagulation testing. Patientshaving hematocrit values >55% require a special collection tube for coagulation studies. Please contact the laboratory at [phone] for redraw instructions. Order Comment: STAT FOR BXResult Comment: A hematocrit value greater than 55% may lead to inaccurate results in coagulation testing. Patients having hematocrit values >55% require a special collection tube for coagulation s tudies. Please contact the laboratory at [phone] for redraw instructions. Performed By: #### PP, CBC ####[address] [address] USAUric Acidon 32-51-6207Taerc [Mass/Vol]6.5 mg/dL Normal2.3-6.6The [facility] Physician GroupComment on above:Result Comment: PERFORMED BY:[place] [address] [place], [place] [phone] MEDICAL DIRECTORELAINE CHAUDHARY M.D.Performed By: #### CMP, URIC ####[facility] [address] [place] [address] USAUric acidon 81-41-9004Chyfs [Mass/Vol]6.5 mg/dL2.3 - 6.6 mg/dLNOCT HealthcareaPTT in Platelet poor plasma by Coagulation assayOrdered By: Roxane Bills on 63-95-7090hLTM Coag (PPP) [Time]29.9 s25.1-36.5FAvita Health System Galion HospitalComment on above:A hematocrit value greater than 55% may lead to inaccurate results in coagulation testing. Patientshaving hematocrit values >55% require a special collection tube for coagulation studies. Please contact the laboratory at [phone] for redraw instructions.CBC W Auto Differential panel (Bld)on 62-86-0402Gjbzwrmwe (Bld) [#/Vol]0.2 10*3/uL0.0 - 0.2 10*3/uLNOMS HealthcareBasophils/100 WBC Manual cnt (Syn fld)1.5 %.NOMS HealthcareEosinophils (Bld) [#/Vol]0.6 10*3/uLHigh0.0 - 0.45 10*3/uLNOMS HealthcareEosinophils/100 WBC Manual cnt (Syn fld)4.5 %.NOMS HealthcareErythrocyte distribution width (RBC) [Ratio]15.3 %11.9 - 15.3 %NOMS HealthcareHematocrit (Bld) [Volume fraction]41.6 %34.0 - 46.4 %NOMS HealthcareHemoglobin (Bld) [Mass/Vol]13.1 g/dL 11.8 - 15.4 g/dLNOCT HealthcareInterpretation and review of laboratory results AbnormalNOMS HealthcareLymphocytes (Bld) [#/Vol]3.8 10*3/uL1.00 - 4.8 10*3/uL NOMS HealthcareLymphocytes/100 WBC Manual cnt (Syn fld)28.7 %.NOMS HealthcareMCH (RBC) [Entitic mass]27.8 pg24.7 - 34.3 pgNOMS HealthcareMCHC (RBC) [Mass/Vol] 31.5 g/dLLow32.0 - 35.0 g/dLNOCT HealthcareMCV (RBC) [Entitic vol]88.3 fL80 - 100 fLNOMS HealthcareMonocytes (Bld) [#/Vol]1.1 10*3/uLHigh0.0 - 0.8 10*3/uLNOMS HealthcareMonocytes+Macrophages/100 WBC Manual cnt (Syn fld)8 %.[facility] Neutrophils (Bld) [#/Vol]7.7 10*3/uL1.8 - 7.7 10*3/uLNOMS Healthcare Neutrophils/100 WBC Manual cnt (Syn fld)57.3 %.NOMS HealthcareNRBC0 /100{WBC}0 - 0.5 /100{WBC}NOMS HealthcarePlatelet mean volume (Bld) [Entitic vol]7.4 fL6.3 - 10.7 fLNOMS HealthcarePlatelets (Bld) [#/Vol]252 10*3/uL150 - 450 10*3/uLNOMS HealthcareRBC LM.HPF (Urine sed) [#/Area]4.72 10*6/uL3.60 - 5.00 10*6/uLNOMS HealthcareWBC (Bld) [#/Vol]13.4 10*3/uLHigh3.8 - 11.6 10*3/uLNOMS HealthcareWBC LM.HPF (Urine sed) [#/Area]13.4 10*3/uLHigh3.8 - 11.6 10*3/uLNOMS HealthcareNOMS HealthcareComplete Blood Count Auto Diffon 86-28-2599Rxkbgvwsa (Bld) [#/Vol]0.2 10*3/uLNormal0.0-0.2The [facility] Physician GroupComment on above:Result Comment: PERFORMED BY:[facility] [place], [place] [phone] MEDICAL DIRECTORRONI BERRY M.D. Performed By: #### FE and TIBC, CLEOPATRA, CBC, LDH, CMP ####[facility] [place] [address] [facility]#### KAPPA, MITCH SERUM, SPE ####[facility] ,Basophils/100 WBC (Bld)1.5 %Normal.The [facility] Physician GroupComment on above:Performed By: #### FE and TIBC, CLEOPATRA, CBC, LDH, CMP ####[address]#### KAPPA, MITCH SERUM, SPE ####[facility] ,Eosinophils (Bld) [#/Vol]0.6 10*3/uLHigh0.0-0.45The [facility] Physician GroupComment on above: Performed By: #### FE and TIBC, CLEOPATRA, CBC, LDH, CMP ####[address]#### KAPPA, MITCH SERUM, SPE ####[facility] ,Eosinophils/100 WBC (Bld)4.5 %Normal.The [facility] Physician GroupComment on above:Performed By: #### FE and TIBC, CLEOPATRA, CBC, LDH, CMP ####[address]#### KAPPA, MITCH SERUM, SPE ####[facility] ,Erythrocyte distribution width (RBC) [Ratio]15.3 %Hkxklj21.9-15.3The [facility] Physician GroupComment on above:Performed By: #### FE and TIBC, CLEOPATRA, CBC, LDH, CMP ####[address]#### KAPPA, MITCH SERUM, SPE ####[facility] ,Hematocrit (Bld) [Volume fraction]41.6 %Normal 34.0-46.4The [facility] Physician GroupComment on above:Performed By: #### FE and TIBC, CLEOPATRA, CBC, LDH, CMP ####[address]#### KAPPA, MITCH SERUM, SPE ####[facility] , Hemoglobin (Bld) [Mass/Vol]13.1 g/lSQxejoy35.8-15.4The [facility] Comment on above:Performed By: #### FE and TIBC, CLEOPATRA, CBC, LDH, CMP ####[address]#### KAPPA, MITCH SERUM, SPE ####[facility] ,Lymphocytes (Bld) [#/Vol]3.8 10*3/uLNormal1.00-4.8The [facility] Physician GroupComment on above:Performed By: #### FE and TIBC, CLEOPATRA, CBC, LDH, CMP ####[address]#### KAPPA, MITCH SERUM, SPE ####[facility] ,Lymphocytes/100 WBC (Bld)28.7 %Normal.The [facility] Physician GroupComment on above:Performed By: #### FE and TIBC, CLEOPATRA, CBC, LDH, CMP ####[address]#### KAPPA, MITCH SERUM, SPE ####[facility] ,MCH (RBC) [Entitic mass]27.8 pg Ptpymd54.7-34.3The [facility] Physician GroupComment on above:Performed By: #### FE and TIBC, CLEOPATRA, CBC, LDH, CMP ####[address]#### KAPPA, MITCH SERUM, SPE ####[facility] ,MCV (RBC) [Entitic vol]88.3 aBYbabgc09-567Ero [facility] Physician GroupComment on above:Performed By: #### FE and TIBC, CLEOPATRA, CBC, LDH, CMP ####[place] [address] [place]#### KAPPA, MITCH SERUM, SPE ####[facility] ,Mean Corpuscular HGB Conc31.5 g/dLLow32.0-35.0The [facility] Physician GroupComment on above:Performed By: #### FE and TIBC, CLEOPATRA, CBC, LDH, CMP ####[address]#### KAPPA, MITCH SERUM, SPE ####[facility] ,Monocytes (Bld) [#/Vol]1.1 10*3/uLHigh0.0-0.8The [facility] Physician GroupComment on above:Performed By: #### FE and TIBC, CLEOPATRA, CBC, LDH, CMP ####[address]#### KAPPA, MITCH SERUM, SPE ####[facility] ,Monocytes/100 WBC (Bld) 8.0 %Normal.The [facility] Physician GroupComment on above:Performed By: #### FE and TIBC, CLEOPATRA, CBC, LDH, CMP ####[address]#### KAPPA, MITCH SERUM, SPE ####[facility] , Neutrophils (Bld) [#/Vol]7.7 10*3/uLNormal1.8-7.7The [facility] Group Comment on above:Performed By: #### FE and TIBC, CLEOPATRA, CBC, LDH, CMP ####[address]#### KAPPA, MITCH SERUM, SPE ####[facility] ,Neutrophils/100 WBC (Bld)57.3 % Normal.The [facility] Physician GroupComment on above:Performed By: #### FE and TIBC, CLEOPATRA, CBC, LDH, CMP ####[place] [address] [place]#### KAPPA, MITCH SERUM, SPE ####[facility] , NRBC%0.0 /100{WBC}Normal0-0.5The [facility] Physician GroupComment on above: Performed By: #### FE and TIBC, CLEOPATRA, CBC, LDH, CMP ####[address]#### KAPPA, MITCH SERUM, SPE ####[facility] ,Platelet mean volume (Bld) [Entitic vol]7.4 fLNormal 6.3-10.7The [facility] Physician GroupComment on above:Performed By: #### FE and TIBC, CLEOPATRA, CBC, LDH, CMP ####[address]#### KAPPA, MITCH SERUM, SPE ####[facility] , Platelets (Bld) [#/Vol]252 10*3/fFVpqjik712-496Jdf [facility] Physician [facility] Comment on above:Performed By: #### FE and TIBC, CLEOPATRA, CBC, LDH, CMP ####[address]#### KAPPA, MITCH SERUM, SPE ####[facility] ,RBC (Bld) [#/Vol]4.72 10*6/uL Normal3.60-5.00The [facility] Physician GroupComment on above:Performed By: #### FE and TIBC, CLEOPATRA, CBC, LDH, CMP ####[address]#### KAPPA, MITCH SERUM, SPE ####[facility] ,WBC (Bld) [#/Vol]13.4 10*3/uLHigh3.8-11.6The [facility] Physician GroupComment on above:Performed By: #### FE and TIBC, CLEOPATRA, CBC, LDH, CMP ####[place] [address] [place]#### KAPPA, MITCH SERUM, SPE ####[facility] ,Comprehensive Metabolic Panelon 50-04-0140Gbbjubt [Mass/Vol]4.0 g/dLNormal3.5-5.7The [facility] Physician [facility] Comment on above:Performed By: #### FE and TIBC, CLEOPATRA, CBC, LDH, CMP ####[address]#### KAPPA, MITCH SERUM, SPE ####[facility] ,Albumin/Globulin [Mass ratio]1.1 {ratio}NormalThe [facility] Physician GroupComment on above:Performed By: #### FE and TIBC, CLEOPATRA, CBC, LDH, CMP ####[address]#### KAPPA, MITCH SERUM, SPE ####[facility] ,ALP [Catalytic activity/Vol]140 U/SMkak89-811Rjf [facility] Physician GroupComment on above:Performed By: #### FE and TIBC, CLEOPATRA, CBC, LDH, CMP ####[address]#### KAPPA, MITCH SERUM, SPE ####[facility] ,ALT [Catalytic activity/Vol]37 U/LNormal7-52The [facility] Physician GroupComment on above:Performed By: #### FE and TIBC, CLEOPATRA, CBC, LDH, CMP ####[place] [address] [place]#### KAPPA, MITCH SERUM, SPE ####[facility] ,Anion gap [Moles/Vol]12.1 mmol/LNormal6.0-15.0The [facility] Physician GroupComment on above:Performed By: #### FE and TIBC, CLEOPATRA, CBC, LDH, CMP ####[place] [address] [place]#### KAPPA, MITCH SERUM, SPE ####[facility] ,AST [Catalytic activity/Vol]30 U/MZwmtvy34-94Gcq [facility] Physician GroupComment on above:Performed By: #### FE and TIBC, CLEOPATRA, CBC, LDH, CMP ####[place] [address] [place]#### KAPPA, MITCH SERUM, SPE ####[facility] ,Bilirubin [Mass/Vol]0.3 mg/dLNormal0.3-1.0The [facility] Physician GroupComment on above: Performed By: #### FE and TIBC, CLEOPATRA, CBC, LDH, CMP ####[address]#### KAPPA, MITCH SERUM, SPE ####[facility] ,Calcium [Mass/Vol]9.5 mg/dLNormal8.6-10.3The [facility] Physician GroupComment on above:Performed By: #### FE and TIBC, CLEOPATRA, CBC, LDH, CMP ####[address]#### KAPPA, MITCH SERUM, SPE ####[facility] ,Chloride [Moles/Vol]99 mmol/RJqntqw07-248Epi [facility] Physician GroupComment on above:Performed By: #### FE and TIBC, CLEOPATRA, CBC, LDH, CMP ####[address]#### KAPPA, MITCH SERUM, SPE ####[facility] ,CO2 [Moles/Vol]34.8 mmol/LHigh21.0-31.0The [facility] Physician GroupComment on above:Performed By: #### FE and TIBC, CLEOPATRA, CBC, LDH, CMP ####[address]#### KAPPA, MITCH SERUM, SPE ####[facility] ,Creatinine [Mass/Vol]1.43 mg/dL High0.60-1.20The [facility] Physician GroupComment on above:Performed By: #### FE and TIBC, CLEOPATRA, CBC, LDH, CMP ####[address]#### KAPPA, MITCH SERUM, SPE ####[facility] , Creatinine Clr Calc Jfqoitfa71.28NoUNC Hospitals Hillsborough Campus Physician GroupComment on above:Performed By: #### FE and TIBC, CLEOPATRA, CBC, LDH, CMP ####[place] [address] [place]#### KAPPA, MITCH SERUM, SPE ####[facility] ,Estimated GFR40.702 mL/MinNoUNC Hospitals Hillsborough Campus Physician [facility] HospitalComment on above:Performed By: #### FE and TIBC, CLEOPATRA, CBC, LDH, CMP ####[address]#### KAPPA, MITCH SERUM, SPE ####[facility] ,Globulin (S) [Mass/Vol] 3.6 g/dLJohns Hopkins All Children's Hospital Physician [facility] HospitalComment on above:Performed By: #### FE and TIBC, CLEOPATRA, CBC, LDH, CMP ####[address]#### KAPPA, MITCH SERUM, SPE ####[facility] ,Glucose [Mass/Vol]61 mg/pJPqs12-045Sbp [facility] Comment on above:Result Comment: Random Glucose Reference Range is dependent on time and content of last meal. Glucose of more than 200 mg/dL in a nonstressed, ambulatory subject supports the diagnosis of Diabetes Mellitus. ADA recommended reference rangePerformed By: #### FE and TIBC, CLEOPATRA, CBC, LDH, CMP ####[place] [address] [place]#### KAPPA, MITCH SERUM, SPE ####[facility] ,Potassium [Moles/Vol]3.9 mmol/LNormal 3.5-5.1The [facility] Physician [facility] HospitalComment on above:Performed By: #### FE and TIBC, CLEOPATRA, CBC, LDH, CMP ####[address]#### KAPPA, MITCH SERUM, SPE ####[facility] , Protein [Mass/Vol]7.6 g/dLNormal6.4-8.9The [facility] Physician [facility] HospitalComment on above:Performed By: #### FE and TIBC, CLEOPATRA, CBC, LDH, CMP ####[address]#### KAPPA, MITCH SERUM, SPE ####[facility] ,Sodium [Moles/Vol]142 mmol/DLilczj334-830Yft [facility] Veterans Affairs Medical CenterComment on above:Performed By: #### FE and TIBC, CLEOPATRA, CBC, LDH, CMP ####[address]#### KAPPA, MITCH SERUM, SPE ####[facility] ,Urea nitrogen [Mass/Vol] 33 mg/dLHigh7-25The [facility] Physician GroupComment on above:Performed By: #### FE and TIBC, CLEOPATRA, CBC, LDH, CMP ####[address]#### KAPPA, MITCH SERUM, SPE ####[facility] ,Ferritin [Mass/volume] in Serum or PlasmaOrdered By: Roxane Bills on 80-01-0917Fdlktrjg [Mass/Vol]101.2 ng/lNRcouuw87.0-306.8Mercy HealthComment on above:Result Comment: PERFORMED BY:[address] [place], [place] [phone] MEDICAL DIRECTORRONI BERRY M.D.Performed By: #### FE and TIBC, CLEOPATRA, CBC, LDH, CMP ####[place] [address] [place]#### KAPPA, MITCH SERUM, SPE ####[facility] ,Free K+L LT Chains, Qn, Son 08-90-3965Ffbh [place] Light Chains, S281.2 mg/LHigh3.3-19.4The [facility] Physician GroupComment on above:Performed By: #### FE and TIBC, CLEOPATRA, CBC, LDH, CMP ####[address]#### KAPPA, MITCH SERUM, SPE ####[facility] ,Free Lambda Light Chains, S33.7 mg/LHigh5.7-26.3The [facility] Physician GroupComment on above: Performed By: #### FE and TIBC, CLEOPATRA, CBC, LDH, CMP ####[address]#### KAPPA, MITCH SERUM, SPE ####[facility] ,[place]/Lambda Ratio, S8.82Nxmi2.26-1.65The [facility] Physician GroupComment on above:Result Comment: Performed at: [facility] [address] [id number] [employer]porary [employer] Referral Clerk: Jhoan Rich PhD, Phone: [phone] BY:[address] [phone] MEDICAL DIRECTORRONI MONTES M.D.Performed By: #### FE and TIBC, CLEOPATRA, CBC, LDH, CMP ####[address]#### KAPPA, MITCH SERUM, SPE ####[facility] ,Immunofixation,Serumon 08-23-2024 Immunofixation, SerumCommentCritically abnormal.The [facility] Comment on above:Result Comment: 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 PLEASE NOTE: Samples from patients receiving DARZALEX(R) (daratumumab) or SARCLISA(R)(isatuximab-irfc) treatment can appear as an IgG kappa and mask a complete response (CR). If this patient is receivin g these therapies, this MITCH assay interference can be removed by ordering test number [id number]- Immunofixation, Daratumumab-Specific, Serum or [id number]- Immunofixation, Isatuximab-Specific, Serum and submitting a new sample for testing or by calling the lab to add this test to the current sample.Performed By: #### FE and TIBC, CLEOPATRA, CBC, LDH, CMP ####[place] [address] [place]#### KAPPA, MITCH SERUM, SPE ####[facility] ,Immunoglobulin A, Fiadk750 mg/cROogx98-429Xrd [facility] Physician [facility] HospitalComment on above:Performed By: #### FE and TIBC, CLEOPATRA, CBC, LDH, CMP ####[address]#### KAPPA, MITCH SERUM, SPE ####[facility] ,Immunoglobulin G1832 mg/dLHigh 586-1602Ochsner Medical CenterComment on above:Performed By: #### FE and TIBC, CLEOPATRA, CBC, LDH, CMP ####[address]#### KAPPA, MITCH SERUM, SPE ####[facility] , Immunoglobulin M, Serum97 mg/jSMhcrnq06-660Mxh [facility] Veterans Affairs Medical CenterComment on above:Result Comment: Performed at: [facility] [address] [id number] [employer] Referral Clerk: Jhoan Rich PhD, Phone: [phone] Performed By: #### FE and TIBC, CLEOPATRA, CBC, LDH, CMP ####[address]#### KAPPA, MITCH SERUM, SPE ####[facility] ,Iron [Mass/volume] in Serum or PlasmaOrdered By: Roxane Bills on 31-50-1628Avkb [Mass/Vol]57 ug/tFWzerlh98-401VlvwedovvMercy HealthComment on above:Performed By: #### FE and TIBC, CLEOPATRA, CBC, LDH, CMP ####[place] [address] [place]#### KAPPA, MITCH SERUM, SPE ####[facility] ,Iron and TIBC Profileon 08-23-2024% Iron Mowxjvgtvm05.7 %Gky82-50Tfw [facility] Physician GroupComment on above:Performed By: #### FE and TIBC, CLEOPATRA, CBC, LDH, CMP ####[address]#### KAPPA, MITCH SERUM, SPE ####[facility] ,Total Iron Binding Yxrklhxm098 ug/kVVotekp712-259Dtn [facility] GroupComment on above:Performed By: #### FE and TIBC, CLEOPATRA, CBC, LDH, CMP ####[address]#### KAPPA, MITCH SERUM, SPE ####[facility] ,LDH Lactate Dehydrogenaseon 20-03-6496FIU Lactate Qscbjvbkpxhgy943 U/BSdky348-247Qrw [facility] GroupComment on above:Performed By: #### FE and TIBC, CLEOPATRA, CBC, LDH, CMP ####[address]#### KAPPA, MITCH SERUM, SPE ####[facility] ,Lactate dehydrogenase [Enzymatic activity/volume] in Serum or Plasma by Lactate to py Ordered By: Roxane Bills on 60-06-1277MIZ Lactate to pyruvate reaction [Catalytic activity/Vol]277 U/EQevh452-587GhirwuibnMercy HealthNo Panel InformationOrdered By: Roxane Bills on 51.0 g/dLHighNot ObservedMercy HealthComment.Mercy HealthProtein Electrophoresis, Serumon 89-38-8846Yakjd-1-Globulin0.3 g/dLNormal0.0-0.4The [facility] Physician GroupComment on above:Performed By: #### FE and TIBC, CLEOPATRA, CBC, LDH, CMP ####[place] [address] [place]#### KAPPA, MITCH SERUM, SPE ####[facility] ,Opeib-9-Rxudpcaf 1.0 g/dLNormal0.4-1.0The [facility] Physician GroupComment on above:Performed By: #### FE and TIBC, CLEOPATRA, CBC, LDH, CMP ####[address]#### KAPPA, MITCH SERUM, SPE ####[facility] ,Beta Globulin1.3 g/dLNormal0.7-1.3The [facility] Comment on above:Performed By: #### FE and TIBC, CLEOPATRA, CBC, LDH, CMP ####[address]#### KAPPA, MITCH SERUM, SPE ####[facility] ,Gamma Globulin1.7 g/dLNormal 0.4-1.8The [facility] Physician GroupComment on above:Performed By: #### FE and TIBC, CLEOPATRA, CBC, LDH, CMP ####[address]#### KAPPA, MITCH SERUM, SPE ####[facility] , M-Spike1.0 g/dLHighNot ObservedThe [facility] Physician GroupComment on above: Performed By: #### FE and TIBC, CLEOPATRA, CBC, LDH, CMP ####[address]#### KAPPA, MITCH SERUM, SPE ####[facility] ,SPE-NoteCommentNormal.The [facility] Group Comment on above:Result Comment: Protein electrophoresis scan will follow via computer, mail, or green building engineer delivery. Performed at: [address] [id number] [employer] Referral Clerk: Jhoan Rich PhD, Phone: [phone] By: #### FE and TIBC, CLEOPATRA, CBC, LDH, CMP ####[address] [address] [place]#### KAPPA, MITCH SERUM, SPE ####[facility] ,Serum free kappa light chain measurement Ordered By: Roxane Bills on 24-21-6244Vxrrbdzhizpteu light chains.kappa.free (S) [Mass/Vol]281.2 mg/LHigh3.3-19.4FChillicothe VA Medical Centererum globulin measurement (mass/volume)Ordered By: Roxane Bills on 16-80-8759Tkwzadgt (S) [Mass/Vol]4.4 g/dLHigh2.2-3.9Mercy HealthComment on above: Performed By: #### FE and TIBC, CLEOPATRA, CBC, LDH, CMP ####[place] [address] [address]#### KAPPA, MITCH SERUM, SPE ####[facility] ,Serum immunoglobulin free kappa light chains/immunoglobulin free lambda light chainsOrdered By: Roxane Bills on 82-14-8453Zwoirymtuxbwmf light chains.kappa.free/Immunoglobulin light chains.lambda.free (S) [Mass ratio]8.72Yemx9.26-1.65ACMC Healthcare Systemerum or plasma IgA measurement (mass/volume)Ordered By: Roxane Bills on 18-06-9109QrF [Mass/Vol]546 mg/nALaol79-290VjfkredfwMercy Health Serum or plasma IgG measurement (mass/volume)Ordered By: Roxane Bills on 08-23-2024 IgG [Mass/Vol]1832 mg/tBOolz959-5997XsyukoqjwACMC Healthcare Systemerum or plasma IgM measurement (mass/volume)Ordered By: Roxane Bills on 39-75-9269OzZ [Mass/Vol]97 mg/jR47-853QlgwwtwezACMC Healthcare Systemerum or plasma albumin measurement (mass/volume)Ordered By: Roxane Bills on 64-91-1975Kmolztj [Mass/Vol] 3.3 g/dLNormal2.9-4.4FAvita Health System Galion HospitalComment on above:Performed By: #### FE and TIBC, CLEOPATRA, CBC, LDH, CMP ####[address]#### KAPPA, MITCH SERUM, SPE ####[facility] ,Serum or plasma albumin/globulin mass ratioOrdered By: Roxane Bills on 15-33-5819Hkztedd/Globulin [Mass ratio]0.8 {ratio}Normal0.7-1.7FAvita Health System Galion HospitalComment on above:Performed By: #### FE and TIBC, CLEOPATRA, CBC, LDH, CMP ####[facility] [id number] [place] [id number] [facility]#### KAPPA, MITCH SERUM, SPE ####[facility] ,Serum or plasma alpha 1 globulin measurement by electrophoresis (mass/volume)Ordered By: Roxane Bills on 04-64-9535Fdbpq 1 globulin Elph [Mass/Vol]0.3 g/dL0.0-0.4FChillicothe VA Medical Centererum or plasma alpha 2 globulin measurement by electrophoresis (mass/volume)Ordered By: Roxane Bills on 01-92-2010Rwscp 2 globulin Elph [Mass/Vol]1.0 g/dL0.4-1.0ACMC Healthcare Systemerum or plasma beta globulin measurement by electrophoresis (mass/volume)Ordered By: Roxane Bills on 24-83-4366Snja globulin Elph [Mass/Vol]1.3 g/dL0.7-1.3FChillicothe VA Medical Centererum or plasma gamma globulin measurement by electrophoresis (mass/volume)Ordered By: Roxane Bills on 66-86-8262Uvenf globulin Elph [Mass/Vol] 1.7 g/dL0.4-1.8ACMC Healthcare Systemerum or plasma immunoglobulin free lambda light chains measurement (mass/volume)Ordered By: Roxane Bills on 60-57-9312Gcbithrttnkurz light chains.lambda.free [Mass/Vol]33.7 mg/LHigh 5.7-26.3FChillicothe VA Medical Centererum or plasma iron binding capacity measurement (mass/volume)Ordered By: Roxane Bills on 37-33-9256Opmf binding capacity [Mass/Vol]364 ug/iQ910-806FcigqngnqACMC Healthcare Systemerum or plasma iron saturation measurement (mass fraction)Ordered By: Roxane Bills on 23-61-4002Tkul saturation [Mass fraction]15.7 %Gps33-93QswwtmaftACMC Healthcare Systemerum total protein measurementOrdered By: Roxane Bills on 08-23-2024 Protein [Mass/Vol]7.7 g/dLNormal6.0-8.5FAvita Health System Galion HospitalComment on above:Performed By: #### FE and TIBC, CLEOPATRA, CBC, LDH, CMP ####[facility]#### KAPPA, MITCH SERUM, SPE ####[facility] ,Transferrin [Mass/volume] in Serum or PlasmaOrdered By: Roxane Bills on [id number] [Mass/Vol]260 mg/dLNormal 203-362Mercy HealthComment on above:Performed By: #### FE and TIBC, CLEOPATRA, CBC, LDH, CMP ####[facility]#### KAPPA, MITCH SERUM, SPE ####[facility] , Glucose (Bld) [Mass/Vol]Ordered By: Rossi Hurt on 02-98-5624Wtethgf Blood, JUI238 mg/dLBE[facility]ER VALLEY [facility] HealthcareLaboratory - Hematology and Cell countson 08-22-2024 HbA1c (Bld) [Mass fraction]10.9 %[facility] CareNo Panel InformationOrdered By: Rossi Hurt on 07-83-2834AYDD HealthcareCholesterol [Mass/volume] in Serum or PlasmaOrdered By: Peri Tyson on 46-43-5941Milomampqui [Mass/Vol]Cholesterol [Mass/volume] in Serum or Ppcbpt453-263TwjthcqlgMercy HealthComment on above:Chol less than 200 mg/dl low riskChol 201-239 mg/dl borderline riskChol 240 mg/dl and greater high riskCholesterol [Mass/Vol]159 mg/rVFvmbdv740-457 Mercy HealthComment on above:Chol less than 200 mg/dl low riskChol 201-239 mg/dl borderline riskChol 240 mg/dl and greater high riskResult Comment: Chol less than 200 mg/dl low risk Chol 201-239 mg/dl borderline risk Chol 240 mg/dland greater high riskPerformed By: #### CCP, RA ####[facility] ,#### URMACRERAT, LIPID, ESR ####[facility] [id number] [place] [address] USACholesterol in HDL [Mass/volume] in Serum or PlasmaOrdered By: Peri Tyson on 08-81-6053Tgvzmvvbtbj in HDL [Mass/Vol]Serum or plasma high density lipoprotein (HDL) cholesterol kgbkretcoas32-46HehwbrxetMercy HealthComment on above:HDL CHOL ATP-III CLASSIFICATION Cardiovascular RiskHDL > or equal to 60 mg/dL LOWHDL < 40 mg/dL HIGHCholesterol in HDL [Mass/Vol]52 mg/kTKnbatr23-86YsopzriuyMercy HealthComment on above:HDL CHOL ATP-III CLASSIFICATION Cardiovascular RiskHDL > or equal to 60 mg/dL LOWHDL < 40 mg/dL HIGHResult Comment: HDL CHOL ATP-III CLASSIFICATION Cardiovascular Risk HDL > or equal to 60 mg/dL LOW HDL < 40 mg/dL HIGHPerformed By: #### CCP, RA ####[facility] ,#### URMACRERAT, LIPID, ESR ####[facility] [address] [place] [address] [place] Cholesterol in LDL Calc [Mass/Vol]Ordered By: Peri Tyson on 08-11-2024 Cholesterol in LDL [Mass/Vol]Cholesterol in LDL [Mass/volume] in Serum or Plasma by calculationMercy HealthComment on above:LDL ATP III CLASSIFICATIONLDL less than 100 mg/dL OptimalLDL 100-129 mg/dL Near or above wvgipdtZDB336-932 mg/dL Borderline highLDL 160-189 mg/dL HighLDL greater than 189 mg/dL Very highCholesterol in LDL [Mass/Vol]90 mg/dLMercy HealthComment on above:LDL ATP III CLASSIFICATIONLDL less than 100 mg/dL OptimalLDL 100-129 mg/dL Near or above iugmhtuIDQ865-337 mg/dL Borderline highLDL 160-189 mg/dL HighLDL greater than 189 mg/dL Very highCholesterol in VLDL Calc [Mass/Vol]Ordered By: Peri Tyson on 80-78-2547Kozpqmkhetk in VLDL [Mass/Vol]Cholesterol in VLDL [Mass/volume] in Serum or Plasma by calculation Mercy HealthCholesterol in VLDL [Mass/Vol]17 mg/dLMercy HealthCreatinine [Mass/volume] in UrineOrdered By: Peri Tyson on 07-32-0315Mrworwxzgl (U) [Mass/Vol]Creatinine [Mass/volume] in Urine Mercy HealthComment on above:No reference range established Creatinine (U) [Mass/Vol]29.00 mg/dLMercy HealthComment on above:No reference range establishedCyclic Citrulliated Pep Abon 08-11-2024 Cyclic Citrulliated Pep Ch99Dcetni6-81Mlf [facility] Physician GroupComment on above:Result Comment: Negative <20 Weak positive 20 - 39 Moderate positive 40 - 59 Strong positive >59 Performed at: [facility] [id number] [employer] Referral Clerk: Jhoan Rich PhD, Phone: [phone] BY:[address] [place], [place] [phone] MEDICAL DIRECTORMOGONZALO BERRY M.D. Performed By: #### CCP, RA ####[facility] ,#### URMACRERAT, LIPID, ESR ####[place] [id number] [facility] Erythrocyte Sedimentation Rateon 97-32-8413LKM (Bld) [Velocity]65 mm/hHigh0-29 The [facility] Physician GroupComment on above:Result Comment: PERFORMED BY:[address] [address] [address] [place], [place] [phone] MEDICAL DIRECTORMOGONZALO BERRY M.D.Performed By: #### CCP, RA ####[facility] ,#### URMACRERAT, LIPID, ESR ####[facility] [place] [address] [facility]ICAL CENTERErythrocyte sedimentation rate by Photometric methodOrdered By: Peri Tyson on 08-11-2024 ESR Photometric method (Bld) [Velocity]Erythrocyte sedimentation rate by Photometric methodHigh0-Mercy HealthESR Photometric method (Bld) [Velocity]65 mm/hrHigh0-29Mercy HealthLipid Panelon 54-05-4248ODD Cholesterol,Qdyxmcolwt55 mg/dLNormal0-100The [facility] Physician GroupComment on above:Result Comment: LDL ATP III CLASSIFICATION LDL less than 100 mg/dL Optimal LDL 100-129 mg/dL Near or above optimal LDL 130-159 mg/dL Borderline high LDL 160-189 mg/dL High LDL greater than 189 mg/dL Very highPerformed By: #### CCP, RA ####[facility] ,#### URMACRERAT, LIPID, ESR ####[place] [address] [place] [id number] [facility] Triglyceride w/Csqxte26 mg/dLNormal0-149The [facility] Physician GroupComment on above:Result Comment: TRIG ATP III CLASSIFICATION TRIG less than 150 mg/dL Normal TRIG 150-199 mg/dL Borderline high TRIG 200-500 mg/dL High TRIG greater than 500 mg/dL Very high Standard traceable to the Center for Disease Conrtrol and Prevention (CDC) test method.Performed By: #### CCP, RA ####[facility] ,#### URMACRERAT, LIPID, ESR ####[facility] [place] [address] USAVLDL ZAZGIDCNPOF56 mg/dLNoUNC [facility]als Hills[facility] Physician GroupComment on above:Performed By: #### CCP, RA ####[facility] ,#### URMACRERAT, LIPID, ESR ####[facility] [place] [address] USAMicroAlb Creat Ratio,Uon 08-11-2024 Creatinine, Urine (Random)29.00 mg/dLNoUNC Hospitals Hillsborough Campus Physician GroupComment on above:Result Comment: No reference range establishedPerformed By: #### CCP, RA ####[facility] ,#### URMACRERAT, LIPID, ESR ####[place] [address] [place] [address] USAMicroalbumin/Creatinine Ratio 51.7 mg/gHigh0.0-30.0The [facility] Physician GroupComment on above:Result Comment: 30-300 mg/g indicates an increased risk for diabetic nephropathy. Greater than 300 mg/g is consistent with clinical nephropathy. (Am. J. Kidney Disease 1995, 25:107)PERFORMED BY:[address]JoseBLA[address], [place] [phone] MEDICAL DIRECTORRONI MONTES M.D.Performed By: #### CCP, RA ####[facility] ,#### URMACRERAT, LIPID, ESR ####[place] [address] [place] [address] USAMicroalbumin [Mass/volume] in UrineOrdered By: Peri Tyson on 54-32-9298Dnyzupq DL <= 20 mg/L (U) [Mass/Vol]Microalbumin [Mass/volume] in Urine0.0-1.8Mercy HealthAlbumin DL <= 20 mg/L (U) [Mass/Vol]1.5 mg/dLNormal0.0-1.8[facility] Comment on above:Performed By: #### CCP, RA ####[facility] ,#### URMACRERAT, LIPID, ESR ####[place] [address] [place] [address] USARheumatoid Factoron 04-80-1434Pokgxpyrit Factor<10.0 Normal<14.0The [facility] Physician [facility] Memorial HospitalComment on above:Result Comment: Performed at: - [facility] [id number] [employer] Referral Clerk: Jhoan Rich PhD, Phone: [phone] By: #### CCP, RA ####[facility] ,#### URMACRERAT, LIPID, ESR ####[facility] [place] [address] USASerum or plasma cyclic adenosine monophosphate measurement (moles/volume)Ordered By: Peri Tyson on 56-08-7282Mkmoowzmr monophosphate.cyclic [Moles/Vol]12 units0-19Mercy HealthComment on above:Negative <20 Weak positive 20 - 39 Moderate positive 40 - 59 Strong positive >59Performed at:[facility] [id number] Director: Jhoan Rich PhD, Phone: [phone] or plasma rheumatoid factor measurement (units/volume) Ordered By: Peri Tyson on 70-50-7455Mipczubzgf factor Qn[IU]/mL<14.0Mercy HealthComment on above:Performed at: [facility] [id number] Director: Jhoan Rich PhD, Phone: [phone] or plasma total cholesterol/high density lipoprotein (HDL) cholesterol mass ratOrdered By: Peri Tyson on 08-11-2024 Cholesterol.total/Cholesterol in HDL [Mass ratio]Serum or plasma total cholesterol/high density lipoprotein (HDL) cholesterol mass rat<5.0Mercy HealthCholesterol.total/Cholesterol in HDL [Mass ratio]3.1 {ratio}Normal<5.0Mercy HealthComment on above:Result Comment: PERFORMED BY:[place] [address] [address] [place], [place] [phone] MEDICAL DIRECTORRONI BERRY M.D. Performed By: #### CCP, RA ####[facility] ,#### URMACRERAT, LIPID, ESR ####[facility] [place] [address] [place] Triglyceride [Mass/volume] in Serum or PlasmaOrdered By: Peri Tyson on 51-17-9158Untdztqkhxha [Mass/Vol]Triglyceride [Mass/volume] in Serum or Plasma 0-149Mercy HealthComment on above:TRIG ATP III CLASSIFICATIONTRIG less than 150 mg/dL NormalTRIG 150-199 mg/dL Borderline highTRIG 200-500 mg/dL High TRIG greater than 500 mg/dL Very highStandard traceable to the Center for Disease Conrtrol and Prevention (CDC) test method. Triglyceride [Mass/Vol]85 mg/dL0-149Mercy HealthComment on above:TRIG ATP III CLASSIFICATIONTRIG less than 150 mg/dL NormalTRIG 150-199 mg/dL Borderline highTRIG 200-500 mg/dL High TRIG greater than 500 mg/dL Very highStandard traceable to the Center for Disease Conrtrol and Prevention (CDC) test method.Urine microalbumin/creatinine mass ratioOrdered By: Peri Tyson on 95-38-4920Wmvzaxe/Creatinine DL <= 20 mg/L (U) [Mass ratio]Urine microalbumin/creatinine mass ratioHigh0.0-30.0[facility] Comment on above:30-300 mg/g indicates an increased risk for diabetic nephropathy. Greater than 300 mg/g is consistent with clinical nephropathy. (Am. J. Kidney Disease 1995, 25:107)Albumin/Creatinine DL <= 20 mg/L (U) [Mass ratio] 51.7 mg/gHigh0.0-30.0Mercy HealthComment on above:30-300 mg/g indicates an increased risk for diabetic nephropathy. Greater than 300 mg/g is consistent with clinical nephropathy. (Am. J. Kidney Disease 1995, 25:107) Glucose (Bld) [Mass/Vol]Ordered By: Rossi Hurt on 07-43-2333Dtooqim Blood, SVB656 mg/dLNOCT HealthcareLaboratory - Hematology and Cell countson 05-25-2024 HbA1c (Bld) [Mass fraction]13.4 %[facility] CareNo Panel InformationOrdered By: Rossi Hurt on 66-90-9938TVKN HealthcareFREE K+L LT CHAINS, QN, Son 02-26-2024 FREE KAPPA LIGHT CHAINS, S234 mg/LHigh3.3 - 19.4 mg/LNOMS HealthcareFREE LAMBDA LIGHT CHAINS, S38.4 mg/LHigh5.7 - 26.3 mg/LNOMS HealthcareKAPPA/LAMBDA RATIO, S 6.97Onnk6.26 - 1.65NOMS HealthcareComment on above:Performed at: [address] [id number] Temporary Help Agency Referral Clerk: Jhoan Rich PhD, Phone: [phone] IMMUNOFIXATION,SERUM ([facility])on 48-60-2019UZCSAKUQJDTPDK, SERUMCommentCritically abnormal.NOMS HealthcareComment on above: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 PLEASE NOTE: Samples from patients receiving DARZALEX(R) (daratumumab) or SARCLISA(R)(isatuximab-irfc) treatment can appear as an IgG kappa and mask a complete response (CR). If this patient is receiving these therapies, this MITCH assay interference can be removed by ordering test number [id number]- Immunofixation, Daratumumab-Specific, Serum or [id number]- Immunofixation, Isatuximab-Specific, Serum and submitting a new sample for testing or by calling the lab to add this test to the current sample. IMMUNOGLOBULIN A, IKDVE872 mg/fRChhk01 - 352 mg/dLNOMS HealthcareIMMUNOGLOBULIN G1714 mg/uGCwbv730 - 1602 mg/dLNOMS HealthcareIMMUNOGLOBULIN M, SERUM86 mg/dL26 - 217 mg/dLNOMS HealthcareComment on above:Performed at: [address] [id number] [employer] Referral Clerk: Jhoan Rich PhD, Phone: [phone] No Panel Informationon 22-99-5617Uidklfxduwasgy and review of laboratory results AbnormalNOCT HealthcareNOMS HealthcareProtein electrophoresis, serumon 87-70-9748Xwyuxqs [Mass/Vol]3.3 g/dL2.9 - 4.4 g/dLNOCT Healthcare Albumin/Globulin [Mass ratio]0.8 {ratio}0.7 - 1.7NOCT EvbflvmyczUDMWX-3-FCJWMLLF 0.3 g/dL0.0 - 0.4 g/dLNOCT OvsffpvgufEOZZQ-8-CGARRDXU5.9 g/dL0.4 - 1.0 g/dLNOMS HealthcareBETA GLOBULIN1.2 g/dL0.7 - 1.3 g/dLNOMS HealthcareGAMMA GLOBULIN1.7 g/dL0.4 - 1.8 g/dLNOCT HealthcareGlobulin (S) [Mass/Vol]4.1 g/dLHigh2.2 - 3.9 g/dLNOMS HealthcareM-SPIKE0.9 g/dLHighNot ObservedNOMS HealthcareProtein [Mass/Vol]7.4 g/dL6.0 - 8.5 g/dLNOCT HealthcareSPE-NOTEComment.[facility] Healthcare Comment on above:Protein electrophoresis scan will follow via computer, mail, or green building engineer delivery. Performed at: [address] [id number] [employer] Referral Clerk: Jhoan Rich PhD, Phone: [phone] Alanine aminotransferase [Enzymatic activity/volume] in Serum or PlasmaOrdered By: Roxane Bills on 38-11-2550NEQ [Catalytic activity/Vol]Alanine aminotransferase [Enzymatic activity/volume] in Serum or PlasmaHigh7-52Mercy HealthAlbumin [Mass/volume] in Serum or Plasma by Bromocresol green (BCG) dye binding methoOrdered By: Roxane Bills on 57-35-6182Mrrseil BCG dye [Mass/Vol] Albumin [Mass/volume] in Serum or Plasma by Bromocresol green (BCG) dye binding metho3.5-5.7FAvita Health System Galion HospitalAlkaline phosphatase [Enzymatic activity/volume] in Serum or PlasmaOrdered By: Roxane Bills on 97-21-0158XDM [Catalytic activity/Vol]Alkaline phosphatase [Enzymatic activity/volume] in Serum or QfifpcUtqp25-128TxnbnangoMercy HealthAspartate aminotransferase [Enzymatic activity/volume] in Serum or PlasmaOrdered By: Roxane Bills on 12-85-7806EWE [Catalytic activity/Vol]Aspartate aminotransferase [Enzymatic activity/volume] in Serum or EuasirPaac66-17GfwziprysMercy HealthBasophils Auto (Bld) [#/Vol]Ordered By: Roxane Bills on 02-24-2024 Basophils (Bld) [#/Vol]Automated basophil count0.0-0.2FAvita Health System Galion HospitalBasophils/100 WBC Auto (Bld)Ordered By: Roxane Bills on 02-24-2024 Basophils/100 WBC (Bld)Automated basophil %.[facility] Bilirubin.total [Mass/volume] in Serum or PlasmaOrdered By: Roxane Bills on 92-29-5353Wqdiofegr [Mass/Vol]Bilirubin.total [Mass/volume] in Serum or Plasma 0.3-1.0Mercy HealthCBC W Auto Differential panel (Bld)on 88-45-3653Pyuemdkiq (Bld) [#/Vol]0.1 10*3/uL0.0 - 0.2 10*3/uLNOMS Healthcare Basophils/100 WBC Manual cnt (Syn fld)0.5 %.[facility] HealthcareEosinophils (Bld) [#/Vol]0.5 10*3/uLHigh0.0 - 0.45 10*3/uLNOMS HealthcareEosinophils/100 WBC Manual cnt (Syn fld)4.5 %.[facility] CareErythrocyte distribution width (RBC) [Ratio]15 %11.9 - 15.3 %[facility] HealthcareHematocrit (Bld) [Volume fraction]38.8 % 34.0 - 46.4 %[facility] CareHemoglobin (Bld) [Mass/Vol]12.5 g/dL11.8 - 15.4 g/dL [facility] CareInterpretation and review of laboratory resultsAbnormalUniversity of Missouri Health CareLymphocytes (Bld) [#/Vol]2.2 10*3/uL1.00 - 4.8 10*3/uLNOMS Healthcare Lymphocytes/100 WBC Manual cnt (Syn fld)21.3 %.[facility] CenterH (RBC) [Entitic mass]28.4 pg24.7 - 34.3 pgCameron Regional Medical CenterHC (RBC) [Mass/Vol]32.2 g/dL32.0 - 35.0 g/dLCameron Regional Medical CenterV (RBC) [Entitic vol]88.3 fL80 - 100 fLUniversity of Missouri Health Care Monocytes (Bld) [#/Vol]0.7 10*3/uL0.0 - 0.8 10*3/uLNOMS Healthcare Monocytes+Macrophages/100 WBC Manual cnt (Syn fld)6.5 %.[facility] Neutrophils (Bld) [#/Vol]7 10*3/uL1.8 - 7.7 10*3/uLNOMS Healthcare Neutrophils/100 WBC Manual cnt (Syn fld)67.2 %.NOMS HealthcareNRBC0 /100{WBC}0 - 0.5 /100{WBC}NOMS HealthcarePlatelet mean volume (Bld) [Entitic vol]7.8 fL6.3 - 10.7 fLNOMS HealthcarePlatelets (Bld) [#/Vol]209 10*3/uL150 - 450 10*3/uLNOMS HealthcareRBC LM.HPF (Urine sed) [#/Area]4.39 10*6/uL3.60 - 5.00 10*6/uLNOMS HealthcareWBC (Bld) [#/Vol]10.5 10*3/uL3.8 - 11.6 10*3/uLNOMS HealthcareWBC LM.HPF (Urine sed) [#/Area]10.5 10*3/uL3.8 - 11.6 10*3/uLNOMS HealthcareNOMS HealthcareCalcium [Mass/volume] in Serum or PlasmaOrdered By: Roxane Bills on 57-95-7067Ahiazfz [Mass/Vol]Calcium [Mass/volume] in Serum or PlasmaLow8.6-10.3 Mercy HealthCarbon dioxide, total [Moles/volume] in Serum or PlasmaOrdered By: Roxane Bills on 47-02-1741BM2 [Moles/Vol]Carbon dioxide, total [Moles/volume] in Serum or EitgqiDfzf04.0-31.0[facility] Chloride [Moles/volume] in Serum or PlasmaOrdered By: Roxane Bills on 02-24-2024 Chloride [Moles/Vol]Chloride [Moles/volume] in Serum or Daliar31-299IrslswrwlMercy HealthComplete Blood Count Auto Diffon 46-53-1391Evafeugtz (Bld) [#/Vol]0.1 10*3/uLNormal0.0-0.2The [facility] Physician GroupComment on above:Result Comment: PERFORMED BY:[place] [address] [address] [place], [place] [phone] MEDICAL DIRECTORRONI MONTES M.D.Performed By: #### FE and TIBC, CLEOPATRA, CBC, CMP ####[address]#### SPE, MITCH SERUM, KAPPA ####[facility] ,Basophils/100 WBC (Bld)0.5 %Normal.The [facility] Physician GroupComment on above:Performed By: #### FE and TIBC, CLEOPATRA, CBC, CMP ####[address]#### SPE, MITCH SERUM, KAPPA ####[facility] ,Eosinophils (Bld) [#/Vol]0.5 10*3/uLHigh0.0-0.45The [facility] Physician GroupComment on above:Performed By: #### FE and TIBC, CLEOPATRA, CBC, CMP ####[address]#### SPE, MITCH SERUM, KAPPA ####[facility] ,Eosinophils/100 WBC (Bld)4.5 %Normal.The [facility]ician Group Comment on above:Performed By: #### FE and TIBC, CLEOPATRA, CBC, CMP ####[address]#### SPE, MITCH SERUM, KAPPA ####[facility] ,Erythrocyte distribution width (RBC) [Ratio]15.0 %Fxenuj76.9-15.3The [facility] Physician GroupComment on above:Performed By: #### FE and TIBC, CLEOPATRA, CBC, CMP ####[place] [address] [place]#### SPE, MITCH SERUM, KAPPA ####[facility] ,Hematocrit (Bld) [Volume fraction]38.8 %Ccnxyf04.0-46.4The [facility] Physician GroupComment on above:Performed By: #### FE and TIBC, CLEOPATRA, CBC, CMP ####[place] [id number] [place]#### SPE, MITCH SERUM, KAPPA ####[facility] ,Hemoglobin (Bld) [Mass/Vol]12.5 g/jUVqfqyq63.8-15.4The [facility] Physician GroupComment on above: Performed By: #### FE and TIBC, CLEOPATRA, CBC, CMP ####[address]#### SPE, MITCH SERUM, KAPPA ####[facility] ,Lymphocytes (Bld) [#/Vol]2.2 10*3/uLNormal1.00-4.8The [facility] Physician GroupComment on above:Performed By: #### FE and TIBC, CLEOPATRA, CBC, CMP ####[address]#### SPE, MITCH SERUM, KAPPA ####[facility] ,Lymphocytes/100 WBC (Bld)21.3 % Normal.The [facility] Physician GroupComment on above:Performed By: #### FE and TIBC, CLEOPATRA, CBC, CMP ####[address]#### SPE, MITCH SERUM, KAPPA ####[facility] ,MCH (RBC) [Entitic mass]28.4 beAvnuop70.7-34.3The [facility] Physician GroupComment on above:Performed By: #### FE and TIBC, CLEOPATRA, CBC, CMP ####[address]#### SPE, MITCH SERUM, KAPPA ####[facility] ,MCV (RBC) [Entitic vol]88.3 sEOohqbc78-839Xxg [facility] Physician GroupComment on above:Performed By: #### FE and TIBC, CLEOPATRA, CBC, CMP ####[place] [address] [place]#### SPE, MITCH SERUM, KAPPA ####[facility] ,Mean Corpuscular HGB Conc32.2 g/aQMagcyl80.0-35.0The [facility] Physician GroupComment on above: Performed By: #### FE and TIBC, CLEOPATRA, CBC, CMP ####[address]#### SPE, MITCH SERUM, KAPPA ####[facility] ,Monocytes (Bld) [#/Vol]0.7 10*3/uLNormal0.0-0.8The [facility] Physician GroupComment on above:Performed By: #### FE and TIBC, CLEOPATRA, CBC, CMP ####[address]#### SPE, MITCH SERUM, KAPPA ####[facility] ,Monocytes/100 WBC (Bld)6.5 % Normal.The [facility] Physician GroupComment on above:Performed By: #### FE and TIBC, CLEOPATRA, CBC, CMP ####[address]#### SPE, MITCH SERUM, KAPPA ####[facility] ,Neutrophils (Bld) [#/Vol]7.0 10*3/uLNormal1.8-7.7The [facility] Physician GroupComment on above:Performed By: #### FE and TIBC, CLEOPATRA, CBC, CMP ####[address]#### SPE, MITCH SERUM, KAPPA ####[facility] ,Neutrophils/100 WBC (Bld)67.2 %Normal.The [facility] Physician GroupComment on above:Performed By: #### FE and TIBC, CLEOPATRA, CBC, CMP ####[address]#### SPE, MITCH SERUM, KAPPA ####[facility] ,NRBC%0.0 /100{WBC}Normal0-0.5The [facility] Physician GroupComment on above:Performed By: #### FE and TIBC, CLEOPATRA, CBC, CMP ####[address]#### SPE, MITCH SERUM, KAPPA ####[facility] ,Platelet mean volume (Bld) [Entitic vol]7.8 fLNormal6.3-10.7The [facility] Physician GroupComment on above:Performed By: #### FE and TIBC, CLEOPATRA, CBC, CMP ####[address]#### SPE, MITCH SERUM, KAPPA ####[facility] ,Platelets (Bld) [#/Vol]209 10*3/uGBxottb336-491Fim [facility] Physician GroupComment on above:Performed By: #### FE and TIBC, CLEOPATRA, CBC, CMP ####[address]#### SPE, MITCH SERUM, KAPPA ####[facility] ,RBC (Bld) [#/Vol]4.39 10*6/uLNormal3.60-5.00The [facility] Physician GroupComment on above:Performed By: #### FE and TIBC, CLEOPATRA, CBC, CMP ####[address]#### SPE, MITCH SERUM, KAPPA ####[facility] ,WBC (Bld) [#/Vol]10.5 10*3/uLNormal3.8-11.6The [facility] Physician GroupComment on above:Performed By: #### FE and TIBC, CLEOPATRA, CBC, CMP ####[address]#### SPE, MITCH SERUM, KAPPA ####[facility] ,Comprehensive Metabolic Panelon 45-21-7677Sflcbch [Mass/Vol]3.6 g/dLNormal3.5-5.7The [facility] Group Comment on above:Performed By: #### FE and TIBC, CLEOPATRA, CBC, CMP ####[address]#### SPE, MITCH SERUM, KAPPA ####[facility] ,Albumin/Globulin [Mass ratio]1.0 {ratio}Normal The [facility] Physician GroupComment on above:Performed By: #### FE and TIBC, CLEOPATRA, CBC, CMP ####[address]#### SPE, MITCH SERUM, KAPPA ####[facility] ,ALP [Catalytic activity/Vol]175 U/YWtsy27-966Vxz [facility] GroupComment on above: Performed By: #### FE and TIBC, CLEOPATRA, CBC, CMP ####[address]#### SPE, MITCH SERUM, KAPPA ####[facility] ,ALT [Catalytic activity/Vol]74 U/LHigh7-52The [facility] Physician GroupComment on above:Performed By: #### FE and TIBC, CLEOPATRA, CBC, CMP ####[address]#### SPE, MITCH SERUM, KAPPA ####[facility] ,Anion gap [Moles/Vol]11.4 mmol/L Normal6.0-15.0The [facility] Physician GroupComment on above:Performed By: #### FE and TIBC, CLEOPATRA, CBC, CMP ####[place] [address] [place]#### SPE, MITCH SERUM, KAPPA ####[facility] ,AST [Catalytic activity/Vol]43 U/OGdsr50-08Gjq [facility] Physician GroupComment on above:Performed By: #### FE and TIBC, CLEOPATRA, CBC, CMP ####[place] [address]#### SPE, MITCH SERUM, KAPPA ####[facility] ,Bilirubin [Mass/Vol]0.3 mg/dL Normal0.3-1.0The [facility] Physician GroupComment on above:Performed By: #### FE and TIBC, CLEOPATRA, CBC, CMP ####[address]#### SPE, MITCH SERUM, KAPPA ####[facility] ,Calcium [Mass/Vol]8.3 mg/dLLow8.6-10.3The [facility] Physician GroupComment on above: Performed By: #### FE and TIBC, CLEOPATRA, CBC, CMP ####[address]#### SPE, MITCH SERUM, KAPPA ####[facility] ,Chloride [Moles/Vol]98 mmol/XXibpqm71-723Mst [facility] Physician GroupComment on above:Performed By: #### FE and TIBC, CLEOPATRA, CBC, CMP ####[address]#### SPE, MITCH SERUM, KAPPA ####[facility] ,CO2 [Moles/Vol]35.8 mmol/LHigh 21.0-31.0The [facility] Physician GroupComment on above:Performed By: #### FE and TIBC, CLEOPATRA, CBC, CMP ####[place] [address] [place]#### SPE, MITCH SERUM, KAPPA ####[facility] , Creatinine [Mass/Vol]1.32 mg/dLHigh0.60-1.20The [facility] Physician GroupComment on above:Performed By: #### FE and TIBC, CLEOPATRA, CBC, CMP ####[place] [address] [place]#### SPE, MITCH SERUM, KAPPA ####[facility] ,Creatinine Clr Calc Sskuhtmj30.49NormalThe [facility] Physician GroupComment on above:Performed By: #### FE and TIBC, CLEOPATRA, CBC, CMP ####[place] [address] [place]#### SPE, MTICH SERUM, KAPPA ####[facility] ,GFR/1.73 sq M.predicted MDRD (S/P/Bld) [Vol rate/Area]44.805 mL/min/{1.73_m2}NormalThe [facility] Physician GroupComment on above:Performed By: #### FE and TIBC, CLEOPATRA, CBC, CMP ####[place] [address] [place]#### SPE, MITCH SERUM, KAPPA ####[facility] ,Globulin (S) [Mass/Vol]3.6 g/dL NormalThe [facility] Physician H. C. Watkins Memorial HospitalComment on above:Performed By: #### FE and TIBC, CLEOPATRA, CBC, CMP ####[place] [address] [place]#### SPE, MITCH SERUM, KAPPA ####[facility] ,Glucose [Mass/Vol]264 mg/dMBvvs84-662Vka [facility] Physician H. C. Watkins Memorial HospitalComment on above: Result Comment: Random Glucose Reference Range is dependent on time and content of last meal. Glucose of more than 200 mg/dL in a nonstressed, ambulatory subject supports the diagnosis of Diabetes Mellitus. ADA recommended reference rangePerformed By: #### FE and TIBC, CLEOPATRA, CBC, CMP ####[place] [address] [place]#### SPE, MITCH SERUM, KAPPA ####[facility] ,Potassium [Moles/Vol]4.2 mmol/LNormal3.5-5.1The [facility] Veterans Affairs Medical CenterComment on above:Performed By: #### FE and TIBC, CLEOPATRA, CBC, CMP ####[place] [address] [place]#### SPE, MITCH SERUM, KAPPA ####[facility] ,Protein [Mass/Vol]7.2 g/dLNormal6.4-8.9The [facility] Physician GroupComment on above:Performed By: #### FE and TIBC, CLEOPATRA, CBC, CMP ####[facility] [address] [place] [address] [place]#### SPE, MITCH SERUM, KAPPA ####[facility] ,Sodium [Moles/Vol]141 mmol/IDgqzzf490-507Tnd [facility] Physician H. [facility]. Watkins Memorial HospitalComment on above:Performed By: #### FE and TIBC, CLEOPATRA, CBC, CMP ####[facility] [place] [address] [place]#### SPE, MITCH SERUM, KAPPA ####[facility] ,Urea nitrogen [Mass/Vol]24 mg/dL Normal7-25The [facility] Physician GroupComment on above:Performed By: #### FE and TIBC, CLEOPATRA, CBC, CMP ####[facility] [address] [place] [address] [place]#### SPE, MITCH SERUM, KAPPA ####[facility] , Comprehensive metabolic panelon 55-50-1857Dphhkoy [Mass/Vol]3.6 g/dL3.5 - 5.7 g/dLNOMS HealthcareAlbumin/Globulin [Mass ratio]1 {ratio}NOMS HealthcareALP [Catalytic activity/Vol]175 U/LHigh34 - 104 U/LNOMS HealthcareALT [Catalytic activity/Vol]74 U/LHigh7 - 52 U/LNOMS HealthcareAnion gap [Moles/Vol]11.4 mmol/L 6.0 - 15.0NOMS HealthcareAST [Catalytic activity/Vol]43 U/LHigh13 - 39 U/LNOMS HealthcareBilirubin [Mass/Vol]0.3 mg/dL0.3 - 1.0 mg/dLNOMS HealthcareCalcium [Mass/Vol]8.3 mg/dLLow8.6 - 10.3 mg/dLNOMS HealthcareChloride [Moles/Vol]98 mmol/L98 - 107 mmol/LNOMS HealthcareCO2 [Moles/Vol]35.8 mmol/LHigh21.0 - 31.0 mmol/LNOMS HealthcareCreatinine (U) [Mass/Vol]1.32 mg/dLHigh0.60 - 1.20 mg/dL [facility] HealthcareCREATININE CLR CALC WVFUUHJZ43.49NOMS HealthcareGFR/1.73 sq M.predicted MDRD (S/P/Bld) [Vol rate/Area]44.805 mL/min/{1.73_m2}[facility] Healthcare Globulin (S) [Mass/Vol]3.6 g/dLNOCT HealthcareGlucose [Mass/Vol]264 mg/vVHrrr48 - 100 mg/dLNOCT HealthcareComment on above:Random Glucose Reference Range is dependent on time and content of last meal. Glucose of more than 200 mg/dL in a nonstressed, ambulatory subject supports the diagnosis of Diabetes Mellitus. ADA recommended reference range Potassium [Moles/Vol]4.2 mmol/L3.5 - 5.1 mmol/LNOMS HealthcareProtein [Mass/Vol] 7.2 g/dL6.4 - 8.9 g/dLNOCT HealthcareSodium [Moles/Vol]141 mmol/L136 - 145 mmol/LNOMS HealthcareUrea nitrogen [Mass/Vol]24 mg/dL7 - 25 mg/dLNOHawthorn Children's [facility] Creatinine [Mass/volume] in Serum or PlasmaOrdered By: Roxane Bills on 02-24-2024 Creatinine [Mass/Vol]Creatinine [Mass/volume] in Serum or PlasmaHigh0.60-1.20 [facility] HealthEosinophils Auto (Bld) [#/Vol]Ordered By: Roxane Bills on 49-10-9560Lbpnuhlxzrw (Bld) [#/Vol]Automated eosinophil countHigh 0.0-0.45Mer[facility] HealthEosinophils/100 WBC Auto (Bld)Ordered By: Roxane Bills on 79-20-2235Bmqrtjinaxn/100 WBC (Bld)Automated eosinophil %. [facility] HealthErythrocyte distribution width Auto (RBC) [Ratio]Ordered By: Roxane Bills on 42-09-7253Jvxjiazyshz distribution width (RBC) [Ratio]Erythrocyte distribution width [Ratio] by Automated count11.9-15.3 [facility] HealthFerritinon 75-12-6880Yofrkuvg [Mass/Vol]161.8 ng/mL11.0 - 306.8 ng/mLNOMS HealthcareFerritin [Mass/Vol]161.8 ng/mLNormal 11.0-306.8The [facility] Physician GroupComment on above:Result Comment: PERFORMED BY:[address] [place], [place] [phone] MEDICAL DIRECTORRONI BERRY M.D. Performed By: #### FE and TIBC, CLEOPATRA, CBC, CMP ####[address]#### SPE, MITCH SERUM, KAPPA ####[facility] ,Ferritin [Mass/volume] in Serum or PlasmaOrdered By: Roxane Bills on 55-03-2874Ufplaafn [Mass/Vol]Ferritin [Mass/volume] in Serum or Plasma 11.0-306.8Mercy HealthFree K+L LT Chains, Qn, Son 65-68-5646Wdzo [place] Light Chains, S234.0 mg/LHigh3.3-19.4The [facility] Physician GroupComment on above:Performed By: #### FE and TIBC, CLEOPATRA, CBC, CMP ####[address]#### SPE, MITCH SERUM, KAPPA ####[facility] ,Free Lambda Light Chains, S38.4 mg/LHigh5.7-26.3The [facility] Physician GroupComment on above:Performed By: #### FE and TIBC, CLEOPATRA, CBC, CMP ####[address]#### SPE, MITCH SERUM, KAPPA ####[facility] ,[place]/Lambda Ratio, S6.51Kwtr2.26-1.65The [facility] Physician GroupComment on above:Result Comment: Performed at: [facility] [address] [id number] [employer]porary [employer] Referral Clerk: Jhoan Rich PhD, Phone: [phone] BY:[facility] [place], [place] [phone] MEDICAL DIRECTORRONI BERRY M.D. Performed By: #### FE and TIBC, CLEOPATRA, CBC, CMP ####[facility] [facility] [place] [address] [facility]#### SPE, MITCH SERUM, KAPPA ####[facility] ,Globulin Calc (S) [Mass/Vol]Ordered By: Roxane Bills on 02-24-2024 Globulin (S) [Mass/Vol]Serum globulin measurement by calculation (mass/volume) [facility] HealthGlucose [Mass/volume] in Serum or PlasmaOrdered By: Roxane Bills on 74-68-1393Fwubnif [Mass/Vol]Glucose [Mass/volume] in Serum or RifjehPytd14-913RmxovmfzgMercy HealthComment on above:ADA recommended reference rangeRandom Glucose Reference Range is dependent on time and content of last meal. Glucose of more than 200 mg/dL in a nonstressed, ambulatory subject supports the diagnosisof Diabetes Mellitus.Hematocrit Auto (Bld) [Volume fraction]Ordered By: Roxane Bills on 98-58-2421Vpfmicuotu (Bld) [Volume fraction]Hematocrit [Volume Fraction] of Blood by Automated count 34.0-46.4FAvita Health System Galion HospitalHemoglobin [Mass/volume] in Blood Ordered By: Roxane Bills on 18-86-0306Olfpojvsai (Bld) [Mass/Vol]Hemoglobin [Mass/volume] in Blood11.8-15.4FAvita Health System Galion Hospital Immunofixation,Serumon 70-90-8324Hdicehnghfumrb, SerumCommentCritically abnormal .The [facility] Physician GroupComment on above:Result Comment: 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 PLEASE NOTE: Samples from patients receiving DARZALEX(R) (daratumumab) or SARCLISA(R)(isatuximab-irfc) treatment can appear as an IgG kappa and mask a complete response (CR). If this patient is receiving these therapies, this MITCH assay interference can be removed by ordering test number [id number]- Immuno fixation, Daratumumab-Specific, Serum or [id number]- Immunofixation, Isatuximab- Specific, Serum and submitting a new sample for testing or by calling the lab to add this test to the current sample.Performed By: #### FE and TIBC, CLEOPATRA, CBC, CMP ####[place] [address] [place]#### SPE, MITCH SERUM, KAPPA ####[facility] ,Immunoglobulin A, Serum 519 mg/xQLxag46-345Woq [facility] Veterans Affairs Medical CenterComment on above:Performed By: #### FE and TIBC, CLEOPATRA, CBC, CMP ####[place] [address] [place]#### SPE, MITCH SERUM, KAPPA ####[facility] ,Immunoglobulin G1714 mg/eVMhjc106-8376Swq [facility] Veterans Affairs Medical CenterComment on above:Performed By: #### FE and TIBC, CLEOPATRA, CBC, CMP ####[place] [address] [place]#### SPE, MITCH SERUM, KAPPA ####[facility] ,Immunoglobulin M, Serum86 mg/dL Ajcqkx60-802Ukh [facility] Veterans Affairs Medical CenterComment on above:Result Comment: Performed at: [facility] LabcoDor[place] [id number] Temporary Help Agency Referral Clerk: Jhoan Rich PhD, Phone: [phone] By: #### FE and TIBC, CLEOPATRA, CBC, CMP ####[place] [address] [place]#### SPE, MITCH SERUM, KAPPA ####[facility] ,Iron [Mass/volume] in Serum or PlasmaOrdered By: Roxane Bills on 33-25-9002Vnxh [Mass/Vol]Iron [Mass/volume] in Serum or Fdmhvd71-828MjftsssunMercy HealthIron and Iron binding capacity panelon 02-24-2024% IRON ZUAYNBHDBB15.1 % Low20 - 50 %NOMS HealthcareIron [Mass/Vol]55 ug/dL50 - 212 ug/dLNOMS Healthcare TOTAL IRON BINDING JLVSKHEU706 ug/dL255 - 450 ug/dLNOMS HealthcareTransferrin [Mass/Vol]230 mg/dL203 - 362 mg/dLNOMS HealthcareIron and TIBC Profileon 02-24-2024% Iron Zdjzrhdxeq39.1 %Hfd89-63KkiColumbia Miami Heart Institute Physician GroupComment on above:Performed By: #### FE and TIBC, CLEOPATRA, CBC, CMP ####[address]#### SPE, MITCH SERUM, KAPPA ####[facility] ,Iron [Mass/Vol]55 ug/xXTlyomm00-233Vmx [facility] Physician GroupComment on above:Performed By: #### FE and TIBC, CLEOPATRA, CBC, CMP ####[place] [address] [place]#### SPE, MITCH SERUM, KAPPA ####[facility] ,Total Iron Binding Brpkdlwg355 ug/nIYnphok604-967Lee [facility] Physician H. C. Watkins Memorial HospitalComment on above:Performed By: #### FE and TIBC, CLEOPATRA, CBC, CMP ####[place] [address] [place]#### SPE, MITCH SERUM, KAPPA ####[facility] ,Transferrin [Mass/Vol]230 mg/zGFhvzwa088-439Mhq [facility] Physician H[facility]. Watkins Memorial HospitalComment on above:Performed By: #### FE and TIBC, CLEOPATRA, CBC, CMP ####[place] [address] [place]#### SPE, MITCH SERUM, KAPPA ####[facility] ,Laboratory - Chemistry and Chemistry - challengeOrdered By: Roxane Bills on 36-41-2206Jrvmjsj [Mass/Vol]0.9 g/dLMercy Health St. Rita's Medical CenterLeukocytes [#/volume] corrected for nucleated erythrocytes in Blood by Automated counOrdered By: Roxane Bills on 08-76-5990RPS corrected for nucl RBC Auto (Bld) [#/Vol]Leukocytes [#/volume] corrected for nucleated erythrocytes in Blood by Automated coun 3.8-11.6FAvita Health System Galion HospitalLymphocytes Auto (Bld) [#/Vol]Ordered By: Roxane Bills on 24-91-7502Qzkewjylkje (Bld) [#/Vol]Lymphocytes [#/volume] in Blood by Automated count1.00-4.8Mercy HealthLymphocytes/100 WBC Auto (Bld)Ordered By: Roxane Bills on 11-79-8970Utddvqeccfk/100 WBC (Bld) Lymphocytes/100 leukocytes in Blood by Automated count.[facility] HospitalH Auto (RBC) [Entitic mass]Ordered By: Roxane Bills on 02-24-2024 MCH (RBC) [Entitic mass]MCH [Entitic mass] by Automated count24.7-34.3FAvita Health System Galion HospitalMCHC Auto (RBC) [Mass/Vol]Ordered By: Roxane Bills on 60-44-2642XADQ (RBC) [Mass/Vol]MCHC [Mass/volume] by Automated count32.0-35.0 [facility] HealthMCV Auto (RBC) [Entitic vol]Ordered By: Roxane Bills on 10-47-9899VFQ (RBC) [Entitic vol]MCV [Entitic volume] by Automated dikqp39-246KdxrkfdkpMercy HealthMonocytes Auto (Bld) [#/Vol]Ordered By: Roxane Bills on 57-25-9327Qsgpvwhql (Bld) [#/Vol]Automated blood monocyte count 0.0-0.8Mercy HealthMonocytes/100 WBC Auto (Bld)Ordered By: Roxane Bills on 58-43-7292Rhjendobo/100 WBC (Bld)Automated monocyte %.[facility] HealthNeutrophils Auto (Bld) [#/Vol]Ordered By: Roxane Bills on 85-09-9473Kaxzkiqzhxz (Bld) [#/Vol]Neutrophils [#/volume] in Blood by Automated count1.8-7.7FAvita Health System Galion HospitalNeutrophils/100 WBC Auto (Bld) Ordered By: Roxane Bills on 91-83-6291Csdsncsmirf/100 WBC (Bld)Automated neutrophil %.[facility] HealthNo Panel Informationon 02-24-2024 Interpretation and review of laboratory resultsAbnoAdventHealth Durand Panel InformationOrdered By: Roxane Bills on 54-75-9885Zltacjnbi GFR (CKD-EPI)44.805 mL/MinMercy HealthPharmacy Creatinine Clearance (Chem48.49Mercy HealthProtein Electrophoresis NoteComment.Mercy HealthComment on above:Protein electrophoresis scan will follow via computer,mail, or green building engineer delivery.Performed at: [facility] [place] [id number] Director: Jhoan Rich PhD, Phone: [phone] erythrocytes [Presence] in Blood by Automated countOrdered By: Roxane Bills on 29-35-9431Kcnxffoch RBC Auto Ql (Bld)Nucleated erythrocytes [Presence] in Blood by Automated count0-0.5FAvita Health System Galion HospitalPlatelet mean volume Auto (Bld) [Entitic vol]Ordered By: Roxane Bills on 00-65-9946Sxfusrzp mean volume (Bld) [Entitic vol]Platelet mean volume [Entitic volume] in Blood by Automated count6.3-10.7FAvita Health System Galion HospitalPlatelets Auto (Bld) [#/Vol] Ordered By: Roxane Bills on 60-95-0377Ghieqkaiv (Bld) [#/Vol]Platelets [#/volume] in Blood by Automated sruco321-358VnhkhsxzdMercy HealthPotassium [Moles/volume] in Serum or PlasmaOrdered By: Roxane Bills on 40-63-8897Hempjktyf [Moles/Vol]Potassium [Moles/volume] in Serum or Plasma3.5-5.1FAvita Health System Galion HospitalProtein Electrophoresis, Serumon 62-74-2422Yyionqt [Mass/Vol]3.3 g/dLNormal2.9-4.4The [facility] Physician GroupComment on above:Performed By: #### FE and TIBC, CLEOPATRA, CBC, CMP ####[facility] [address]#### SPE, MITCH SERUM, KAPPA ####[facility] ,Albumin/Globulin [Mass ratio]0.8 {ratio}Normal0.7-1.7The [facility] Physician GroupComment on above:Performed By: #### FE and TIBC, CLEOPATRA, CBC, CMP ####[address]#### SPE, MITCH SERUM, KAPPA ####[facility] ,Xzvuz-1-Drwcikyf3.3 g/dLNormal 0.0-0.4The [facility] Physician GroupComment on above:Performed By: #### FE and TIBC, CLEOPATRA, CBC, CMP ####[address]#### SPE, MITCH SERUM, KAPPA ####[facility] , Wngkc-9-Naltgoew7.9 g/dLNormal0.4-1.0The [facility] Physician GroupComment on above:Performed By: #### FE and TIBC, CLEOPATRA, CBC, CMP ####[address]#### SPE, MITCH SERUM, KAPPA ####[facility] ,Beta Globulin1.2 g/dLNormal0.7-1.3The [facility] Physician GroupComment on above:Performed By: #### FE and TIBC, CLEOPATRA, CBC, CMP ####[address]#### SPE, MITCH SERUM, KAPPA ####[facility] ,Gamma Globulin1.7 g/dLNormal 0.4-1.8The [facility] Physician GroupComment on above:Performed By: #### FE and TIBC, CLEOPATRA, CBC, CMP ####[address]#### SPE, MITCH SERUM, KAPPA ####[facility] ,Globulin (S) [Mass/Vol]4.1 g/dLHigh2.2-3.9The [facility] Physician GroupComment on above: Performed By: #### FE and TIBC, CLEOPATRA, CBC, CMP ####[address]#### SPE, MITCH SERUM, KAPPA ####[facility] ,M-Spike0.9 g/dLHighNot ObservedThe [facility] Physician Group Comment on above:Performed By: #### FE and TIBC, CLEOPATRA, CBC, CMP ####[address]#### SPE, MITCH SERUM, KAPPA ####[facility] ,Protein [Mass/Vol]7.4 g/dLNormal6.0-8.5The [facility] Physician GroupComment on above:Performed By: #### FE and TIBC, CLEOPATRA, CBC, CMP ####[address]#### SPE, MITCH SERUM, KAPPA ####[facility] ,SPE-NoteCommentNormal. The [facility] Physician GroupComment on above:Result Comment: Protein electrophoresis scan will follow via computer, mail, or green building engineer delivery. Pe rformed at: [facility] [address] [id number] Temporary Help Agency Referral Clerk: Jhoan Rich PhD, Phone: [phone] By: #### FE and TIBC, CLEOPATRA, CBC, CMP ####[address]#### SPE, MITCH SERUM, KAPPA ####[facility] ,Protein [Mass/volume] in Serum or PlasmaOrdered By: Roxane Bills on 73-01-3466Uojdhhq [Mass/Vol]Protein [Mass/volume] in Serum or Plasma6.0-8.5FAvita Health System Galion HospitalRBC Auto (Bld) [#/Vol]Ordered By: Roxane Bills on 22-76-6562HBH (Bld) [#/Vol]Erythrocytes [#/volume] in Blood by Automated count3.60-5.00ACMC Healthcare Systemerum free kappa light chain measurementOrdered By: Roxane Bills on 12-83-1751Ihlebrirtymuwg light chains.kappa.free (S) [Mass/Vol] Immunoglobulin light chains.kappa.free [Mass/volume] in SerumHigh3.3-19.4 A[facility] Healthcare Systemerum globulin measurement (mass/volume)Ordered By: Roxane Bills on 01-02-1312Axzquxts (S) [Mass/Vol]Serum globulin measurement (mass/volume)High2.2-3.9ACMC Healthcare Systemerum immunofixation electrophoresisOrdered By: Roxane Bills on 77-34-4162Rhwul ImmunofixationComment Abnormal.Mercy HealthComment on above:Immunofixation shows IgG monoclonal protein with kappalight chain specificity. PLEASE NOTE: Samples from patients receiving DARZALEX(R)(daratumumab) or SARCLISA(R)(isatuximab-[facility]) treatmentcan appear as an IgG kappa and mask a complete response(CR). If this patient is receiving these therapies, thisIFE assay interference can be removed by ordering testnumber [id number]- Immunofixation, Daratumumab-Specific,Serum or 358555- Immunofixation, Isatuximab-Specific,Serum and submitting a new sample for testing or bycalling the lab to add this test to the current sample.Serum immunoglobulin free kappa light chains/immunoglobulin free lambda light chains Ordered By: Roxane Bills on 07-95-8546Gwbcmrumitivxq light chains.kappa.free/Immunoglobulin light chains.lambda.free (S) [Mass ratio] Immunoglobulin light chains.kappa.free/Immunoglobulin light chains.lambda.free [MassHigh0.26-1.65Mercy HealthComment on above:Performed at: [facility] [address] [id number] Director: Jhoan Rich PhD, Phone: [phone] or plasma IgA measurement (mass/volume)Ordered By: Roxane Bills on 43-72-2677TkN [Mass/Vol]IgA [Mass/volume] in Serum or NuvbvgDsgy05-674ZvwhykmriACMC Healthcare Systemerum or plasma IgG measurement (mass/volume)Ordered By: Roxane Bills on 32-11-2068QpN [Mass/Vol]IgG [Mass/volume] in Serum or UlzfrpUjnk650-3431BuiayfqzvMercy Health Serum or plasma IgM measurement (mass/volume)Ordered By: Roxane Bills on 02-24-2024 IgM [Mass/Vol]IgM [Mass/volume] in Serum or Ysovme18-474CrbeabnfiMercy HealthComment on above:Performed at: [facility] [id number] Director: Jhoan Rich PhD, Phone: [phone] Serum or plasma albumin measurement (mass/volume)Ordered By: Roxane Bills on 84-25-9866Bfkjepe [Mass/Vol]Albumin [Mass/volume] in Serum or Plasma2.9-4.4 A[facility] Healthcare Systemerum or plasma albumin/globulin mass ratio Ordered By: Roxane Bills on 30-74-4508Mlqeeyj/Globulin [Mass ratio]Serum or plasma albumin/globulin mass ratio0.7-1.7FChillicothe VA Medical Centererum or plasma alpha 1 globulin measurement by electrophoresis (mass/volume)Ordered By: Roxane Bills on 47-67-2143Ijfzl 1 globulin Elph [Mass/Vol]Serum or plasma alpha 1 globulin measurement by electrophoresis (mass/volume)0.0-0.4FChillicothe VA Medical Centererum or plasma alpha 2 globulin measurement by electrophoresis (mass/volume)Ordered By: Roxane Bills on 62-42-8528Hqjrs 2 globulin Elph [Mass/Vol] Serum or plasma alpha 2 globulin measurement by electrophoresis (mass/volume) 0.4-1.0AC[facility] Healthcare Systemerum or plasma anion gap determination Ordered By: Roxane Bills on 47-82-9803Exdoa gap [Moles/Vol]Serum or plasma anion gap determination6.0-15.0AC[facility] Healthcare Systemerum or plasma beta globulin measurement by electrophoresis (mass/volume)Ordered By: Roxane Bills on 08-65-2080Kcpz globulin Elph [Mass/Vol]Serum or plasma beta globulin measurement by electrophoresis (mass/volume)0.7-1.3FChillicothe VA Medical Centererum or plasma gamma globulin measurement by electrophoresis (mass/volume)Ordered By: Roxane Bills on 97-30-4558Zozvr globulin Elph [Mass/Vol]Serum or plasma gamma globulin measurement by electrophoresis (mass/volume)0.4-1.8AC[facility] Healthcare Systemerum or plasma immunoglobulin free lambda light chains measurement (mass/volume)Ordered By: Roxane Bills on 25-74-6995Ybkakoqivrmgkv light chains.lambda.free [Mass/Vol]Immunoglobulin light chains.lambda.free [Mass/volume] in Serum or PlasmaHigh5.7-26.3FAvita Health System [facility] Hospital Serum or plasma iron binding capacity measurement (mass/volume)Ordered By: Roxane Bills on 42-33-7036Lita binding capacity [Mass/Vol]Iron binding capacity [Mass/volume] in Serum or Stvlwg172-496MwnyawkrvACMC Healthcare Systemerum or plasma iron saturation measurement (mass fraction)Ordered By: Roxane Bills on 62-15-1865Ijdd saturation [Mass fraction]Iron saturation [Mass Fraction] in Serum or AetzjsGws46-55EaarkbisjACMC Healthcare Systemodium [Moles/volume] in Serum or PlasmaOrdered By: Roxane Bills on 32-26-1845Aqcscw [Moles/Vol]Sodium [Moles/volume] in Serum or Ihaxlv381-809WiistynjsMercy Health Transferrin [Mass/volume] in Serum or PlasmaOrdered By: Roxane Bills on 02-24-2024 Transferrin [Mass/Vol]Transferrin [Mass/volume] in Serum or Kczbiw191-167 Mercy HealthUrea nitrogen [Mass/volume] in Serum or Plasma Ordered By: Roxane Bills on 90-38-6560Gwev nitrogen [Mass/Vol]Urea nitrogen [Mass/volume] in Serum or Plasma7-25Mercy HealthWBC Auto (Bld) [#/Vol]Ordered By: Roxane Bills on 70-50-9736DMQ (Bld) [#/Vol]Leukocytes [#/volume] in Blood by Automated count3.8-11.6FAvita Health System [facility] Hospital Glucose (Bld) [Mass/Vol]Ordered By: Rossi Hurt on 71-07-3344Nupeilc Blood, GSY972 mg/dLUniversity of Missouri Health CareInterpretation and review of laboratory results AbnormalNOCarondelet Health IdrbwgrpuqDmR7f (Bld) [Mass fraction]on 01-20-2024 Interpretation and review of laboratory resultsAbnormMain Line Health/[facility] HealthcareLaboratory - Hematology and Cell countson 38-20-5285UpY8h (Bld) [Mass fraction]9.1 %NOMS HealthcareAlanine aminotransferase [Enzymatic activity/volume] in Serum or PlasmaOrdered By: Roxane Bills on 16-45-7446XZH [Catalytic activity/Vol]18 U/L7-52Mercy HealthAlbumin [Mass/volume] in Serum or PlasmaOrdered By: Roxane Bills on 39-25-3128Bzbxvtq [Mass/Vol]3.6 g/dL2.9-4.4FAvita Health System Galion HospitalAlbumin [Mass/volume] in Serum or Plasma by Bromocresol green (BCG) dye binding methoOrdered By: Roxane Bills on 51-38-1130Iluwmay BCG dye [Mass/Vol]4.0 g/dL3.5-5.7FAvita Health System Galion HospitalAlkaline phosphatase [Enzymatic activity/volume] in Serum or PlasmaOrdered By: Roxane Bills on 82-53-9230HQV [Catalytic activity/Vol]133 U/L 34-104Mercy HealthAspartate aminotransferase [Enzymatic activity/volume] in Serum or PlasmaOrdered By: Roxane Bills on 90-39-8641TQU [Catalytic activity/Vol]20 U/Y94-29OzrxxrmmjMercy HealthBasophils Auto (Bld) [#/Vol]Ordered By: Roxane Bills on 69-50-1398Zlknyuaho (Bld) [#/Vol]0.1 10*3/uL0.0-0.2FAvita Health System Galion HospitalBasophils/100 WBC Auto (Bld) Ordered By: Roxane Bills on 10-04-7415Mzqqqyopc/100 WBC (Bld)0.6 %.Mercy HealthBilirubin.total [Mass/volume] in Serum or PlasmaOrdered By: Roxane Bills on 75-93-2778Xsypmbswd [Mass/Vol]0.3 mg/dL0.3-1.0Mercy HealthCalcium [Mass/volume] in Serum or PlasmaOrdered By: Roaxne Bills on 82-71-5072Szybsar [Mass/Vol]9.1 mg/dL8.6-10.3FAvita Health System Galion HospitalCarbon dioxide, total [Moles/volume] in Serum or PlasmaOrdered By: Roxane Bills on 28-52-9858KY0 [Moles/Vol]36.2 mmol/L21.0-31.0Mercy HealthChloride [Moles/volume] in Serum or PlasmaOrdered By: Roxane Bills on 33-24-5263Cyvaaldp [Moles/Vol]97 mmol/P18-328UqagtfaovMercy Health Creatinine [Mass/volume] in Serum or PlasmaOrdered By: Roxane Bills on 08-24-2023 Creatinine [Mass/Vol]1.41 mg/dL0.60-1.20[facility] Eosinophils Auto (Bld) [#/Vol]Ordered By: Roxane Bills on 97-32-8084Fwslpnanegt (Bld) [#/Vol]0.6 10*3/uL0.0-0.45Mercy HealthEosinophils/100 WBC Auto (Bld)Ordered By: Roxane Bills on 83-01-7448Xrvfjvfxffy/100 WBC (Bld)5.5 % .Mercy HealthErythrocyte distribution width Auto (RBC) [Ratio]Ordered By: Roxane Bills on 86-64-4389Jqukzjdewrw distribution width (RBC) [Ratio]14.4 %11.9-15.3FAvita Health System Galion HospitalFerritin [Mass/volume] in Serum or PlasmaOrdered By: Roxane Bills on 73-62-0324Kpytekhs [Mass/Vol]111.9 ng/mL11.0-306.8Mercy HealthGlobulin Calc (S) [Mass/Vol] Ordered By: Roxane Bills on 21-17-6227Zmoryztr (S) [Mass/Vol]3.8 g/dLMercy HealthGlucose [Mass/volume] in Serum or PlasmaOrdered By: Roxane Bills on 82-19-6682Rwwixcc [Mass/Vol]86 mg/uA07-535CmaszjyozMercy HealthComment on above:ADA recommended reference rangeRandom Glucose Reference Range is dependent on time and content of last meal. Glucose of more than 200 mg/dL in a nonstressed, ambulatory subject supports the diagnosisof Diabetes Mellitus.Hematocrit Auto (Bld) [Volume fraction]Ordered By: Roxane Bills on 07-75-5665Vpotzdkmle (Bld) [Volume fraction]40.0 %34.0-46.4FAvita Health System Galion HospitalHemoglobin [Mass/volume] in BloodOrdered By: Roxane Bills on 80-71-9067Ufjnjxbgjy (Bld) [Mass/Vol]13.1 g/dL11.8-15.4FAvita Health System Galion HospitalIgA [Mass/volume] in Serum or PlasmaOrdered By: Roxane Bills on 14-99-1997CeI [Mass/Vol]604 mg/aW30-607FotizajfsMercy HealthIgG [Mass/volume] in Serum or PlasmaOrdered By: Roxane Bills on 32-71-0175KxM [Mass/Vol]1722 mg/iY313-9058EwkrqjqyhMercy HealthIgM [Mass/volume] in Serum or PlasmaOrdered By: Roxane Bills on 67-94-5452FjO [Mass/Vol]94 mg/dL 26-217Mercy HealthComment on above:Performed at: [facility] [address] [id number] Director: Jhoan Rich PhD, Phone: [phone] [Mass/volume] in Serum or PlasmaOrdered By: Roxane Bills on 58-51-6148Usst [Mass/Vol]57 ug/kL58-436NqnvrvcnkMercy HealthIron binding capacity [Mass/volume] in Serum or PlasmaOrdered By: Roxane Bills on 35-60-9072Dent binding capacity [Mass/Vol]354 ug/dX391-677BggissjrzMercy HealthIron saturation [Mass Fraction] in Serum or PlasmaOrdered By: Roxane Bills on 64-00-4237Vqvs saturation [Mass fraction]16.1 %20-50Mercy HealthLaboratory - Chemistry and Chemistry - challengeOrdered By: Roxane Bills on 17-55-3014Aqbwohu [Mass/Vol]0.8 g/dLNot ObservedMercy HealthLeukocytes [#/volume] corrected for nucleated erythrocytes in Blood by Automated counOrdered By: Roxane Bills on 71-87-3856MCL corrected for nucl RBC Auto (Bld) [#/Vol]11.3 10*3/uL3.8-11.6FAvita Health System Galion HospitalLymphocytes Auto (Bld) [#/Vol]Ordered By: Roxane Bills on 08-24-2023 Lymphocytes (Bld) [#/Vol]2.5 10*3/uL1.00-4.8[facility] Lymphocytes/100 WBC Auto (Bld)Ordered By: Roxane Bills on 79-88-4858Wshujdexckc/100 WBC (Bld)22.1 %.[facility] HospitalH Auto (RBC) [Entitic mass] Ordered By: Roxane Bills on 16-97-0324NLF (RBC) [Entitic mass]29.1 pg24.7-34.3 Mercy HealthMCHC Auto (RBC) [Mass/Vol]Ordered By: Roxane Bills on 64-04-1079FYRT (RBC) [Mass/Vol]32.6 g/dL32.0-35.0Mercy HealthMCV Auto (RBC) [Entitic vol]Ordered By: Roxane Bills on 65-08-0340KLO (RBC) [Entitic vol]89.1 zT58-828XlqdybdtxMercy HealthMonocytes Auto (Bld) [#/Vol]Ordered By: Roxane Bills on 90-09-9793Miqmalkyu (Bld) [#/Vol]1.1 10*3/uL 0.0-0.8Mercy HealthMonocytes/100 WBC Auto (Bld)Ordered By: Roxane Bills on 63-22-9306Oefaoehbv/100 WBC (Bld)9.6 %.Mercy HealthNeutrophils Auto (Bld) [#/Vol]Ordered By: Roxane Bills on 08-24-2023 Neutrophils (Bld) [#/Vol]7.1 10*3/uL1.8-7.7FAvita Health System [facility] Hospital Neutrophils/100 WBC Auto (Bld)Ordered By: Roxane Bills on 77-44-3793Kttarespdua/100 WBC (Bld)62.2 %.[facility]cy HealthNo Panel InformationOrdered By: Roxane Bills on 65-78-8507Ibeciorrw GFR (CKD-EPI)41.654 mL/MinMercy HealthPharmacy Creatinine Clearance (ChemN/AFAvita Health System Galion HospitalProtein Electrophoresis NoteSee comment.Mercy HealthComment on above:Protein electrophoresis scan will follow via computer,mail, or green building engineer delivery.Performed at: [place] [id number] Director: Jhoan Rich PhD, Phone: [phone] Serum ImmunofixationSee comment.Mercy HealthComment on above:Immunofixation shows IgG monoclonal protein with kappalight chain specificity. PLEASE NOTE: Samplesfrom patients receiving DARZALEX(R)(daratumumab) or SARCLISA(R)(isatuximab-irfc) treatmentcan appear as an IgG kappa and mask a complete response(CR). If this patient is receiving these therapies, thisIFE assay interference can be removed by ordering testnumber [id number]- Immunofixation, Daratumumab-Specific,Serum or 365292- Immunofixation, Isatuximab-Specific,Serum and submitting a new sample for testing or bycalling the lab to add this test to the current sample.Nucleated erythrocytes [Presence] in Blood by Automated countOrdered By: Roxane Bills on 11-94-2927Cuyjffsng RBC Auto Ql (Bld)0.1 /100{WBC}0-0.5FAvita Health System Galion HospitalPlatelet mean volume Auto (Bld) [Entitic vol]Ordered By: Roxane Bills on 21-03-5805Xytacvah mean volume (Bld) [Entitic vol]7.2 fL6.3-10.7FAvita Health System Galion HospitalPlatelets Auto (Bld) [#/Vol]Ordered By: Roxane Bills on 16-55-5927Lnwakqnmm (Bld) [#/Vol]320 10*3/uH880-579QewowjqpuMercy HealthPotassium [Moles/volume] in Serum or PlasmaOrdered By: Roxane Bills on 40-91-2325Qizvoznkh [Moles/Vol]4.2 mmol/L3.5-5.1FAvita Health System Galion HospitalProtein [Mass/volume] in Serum or PlasmaOrdered By: Roxane Bills on 60-36-0497Lwdiblj [Mass/Vol]7.8 g/dL6.4-8.9[facility] Protein [Mass/Vol]7.6 g/dL6.0-8.5FAvita Health System Galion HospitalRBC Auto (Bld) [#/Vol]Ordered By: Roxane Bills on 27-69-5469QXZ (Bld) [#/Vol]4.49 10*6/uL 3.60-5.00AC[facility] Healthcare Systemerum globulin measurement (mass/volume)Ordered By: Roxnae Bills on 59-79-3202Ujgmbova (S) [Mass/Vol]4.0 g/dL 2.2-3.9ACMC Healthcare Systemerum or plasma albumin/globulin mass ratioOrdered By: Roxane Bills on 96-83-0144Frizjwm/Globulin [Mass ratio]1.1 {ratio} Mercy HealthAlbumin/Globulin [Mass ratio]0.9 {ratio}0.7-1.7 A[facility] Healthcare Systemerum or plasma alpha 1 globulin measurement by electrophoresis (mass/volume)Ordered By: Roxane Bills on 21-22-6672Omqtc 1 globulin Elph [Mass/Vol]0.2 g/dL0.0-0.4FChillicothe VA Medical Centererum or plasma alpha 2 globulin measurement by electrophoresis (mass/volume)Ordered By: Roxane Bills on 28-35-0653Jqnvo 2 globulin Elph [Mass/Vol]0.9 g/dL0.4-1.0AC[facility] Healthcare Systemerum or plasma anion gap determinationOrdered By: Roxane Bills on 18-07-3521Wbtqf gap [Moles/Vol]13.0 mmol/L6.0-15.0AC[facility] Healthcare Systemerum or plasma beta globulin measurement by electrophoresis (mass/volume)Ordered By: Roxane Bills on 74-41-2335Cdly globulin Elph [Mass/Vol]1.2 g/dL0.7-1.3FChillicothe VA Medical Centererum or plasma gamma globulin measurement by electrophoresis (mass/volume)Ordered By: Roxane Bills on 08-24-2023 Gamma globulin Elph [Mass/Vol]1.7 g/dL0.4-1.8[facility] Sodium [Moles/volume] in Serum or PlasmaOrdered By: Roxane Bills on 08-24-2023 Sodium [Moles/Vol]142 mmol/J821-817ZghpbmgmoMercy HealthTransferrin [Mass/volume] in Serum or PlasmaOrdered By: Roxane Bills on 34-25-7411Jpouxmxbznb [Mass/Vol]253 mg/uL481-523FxyssaphnMercy HealthUrea nitrogen [Mass/volume] in Serum or PlasmaOrdered By: Roxane Bills on 88-75-6847Wyut nitrogen [Mass/Vol]21 mg/dL7-25Mercy HealthWBC Auto (Bld) [#/Vol] Ordered By: Roxane Bills on 81-80-5165FZH (Bld) [#/Vol]11.3 10*3/uL3.8-11.6 [facility] HealthThyrotropin [Units/volume] in Serum or Plasma Ordered By: Peri Tyson on 02-00-7447EQA Qn4.88 m[IU]/L0.45-5.33Mercy HealthAlbumin [Mass/volume] in Serum or Plasma by Bromocresol green (BCG) dye binding methoOrdered By: Jeannie Aguilar on 35-31-8978Puhwmdc BCG dye [Mass/Vol]4.0 g/dL3.5-5.7FAvita Health System Galion HospitalCalcium [Mass/volume] in Serum or PlasmaOrdered By: Jeannie Aguilar on 78-53-6415Qjllsmf [Mass/Vol]9.4 mg/dL8.6-10.3FAvita Health System Galion HospitalCarbon dioxide, total [Moles/volume] in Serum or PlasmaOrdered By: Jeannie Aguilar on 07-31-2023 CO2 [Moles/Vol]31.7 mmol/L21.0-31.0Mercy HealthChloride [Moles/volume] in Serum or PlasmaOrdered By: Jeannie Aguilar on 13-54-3723Iqvpxbpi [Moles/Vol]100 mmol/Z73-574IpnoukvpkMercy HealthCholesterol [Mass/volume] in Serum or PlasmaOrdered By: Jeannie Aguilar on 07-31-2023 Cholesterol [Mass/Vol]134 mg/jO998-987VjaevwsgbMercy HealthComment on above:Chol less than 200 mg/dl low riskChol 201-239 mg/dl borderline riskChol 240 mg/dl and greater high riskCholesterol in LDL Calc [Mass/Vol]Ordered By: Jeannie Aguilar on 96-05-2125Guaffkxwmla in LDL [Mass/Vol]71 mg/dL0-100Mercy HealthComment on above:LDL ATP III CLASSIFICATIONLDL less than 100 mg/dL OptimalLDL 100-129 mg/dL Near or above urjragvSZZ106-652 mg/dL Borderline highLDL 160-189 mg/dL HighLDL greater than 189 mg/dL Very high Cholesterol in VLDL Calc [Mass/Vol]Ordered By: Jeannie Aguilar on 07-31-2023 Cholesterol in VLDL [Mass/Vol]17 mg/dLMercy Health Creatinine [Mass/volume] in Serum or PlasmaOrdered By: Jeannie Aguilar on 73-57-5537Jnirqcqsqr [Mass/Vol]1.52 mg/dL0.60-1.20Mer[facility] HealthCreatinine [Mass/volume] in UrineOrdered By: Jeannie Aguilar on 07-31-2023 Creatinine (U) [Mass/Vol]33.0 mg/dLMercy HealthComment on above:No reference range establishedGlucose [Mass/volume] in Serum or Plasma Ordered By: Jeannie Aguilar on 40-44-8815Mahadtd [Mass/Vol]154 mg/xK28-393 Mercy HealthComment on above:ADA recommended reference rangeRandom Glucose Reference Range is dependent on time and content of last meal. Glucose of more than 200 mg/dL in a nonstressed, ambulatory subject supports the diagnosisof Diabetes Mellitus.Microalbumin [Mass/volume] in Urine Ordered By: Jeannie Aguilar on 61-09-2188Tpvkimf DL <= 20 mg/L (U) [Mass/Vol]mg/dL 0.0-1.8Mer[facility] HealthNo Panel InformationOrdered By: Jeannie Aguilar on 27-49-8910Gjehxyxtg GFR (CKD-EPI)38.064 mL/MinMercy HealthPharmacy Creatinine Clearance (ChemN/AFAvita Health System Galion HospitalPhosphate [Mass/volume] in Serum or PlasmaOrdered By: Jeannie Aguilar on 95-89-8340Tilkoankf [Mass/Vol]4.5 mg/dL2.5-4.5FAvita Health System Gal[facility] Hospital Potassium [Moles/volume] in Serum or PlasmaOrdered By: Jeannie Aguilar 08-90-3021Btoklfjls [Moles/Vol]4.1 mmol/L3.5-5.1FChillicothe VA Medical Centererum or plasma anion gap determinationOrdered By: Jeannie Aguilar on 12-08-7928Mhbmm gap [Moles/Vol]13.4 mmol/L6.0-15.0AC[facility] Healthcare Systemerum or plasma high density lipoprotein (HDL) cholesterol measurement Ordered By: Jeannie Aguilar 95-39-9804Krgeaqnztug in HDL [Mass/Vol]45 mg/dL 23-92Mercy HealthComment on above:HDL CHOL ATP-III CLASSIFICATION Cardiovascular RiskHDL > or equal to 60 mg/dL LOWHDL < 40 mg/dL HIGHSerum or plasma total cholesterol/high density lipoprotein (HDL) cholesterol mass ratOrdered By: Jeannie Aguilar on 73-55-4728Ctfbzodtmsa.total/Cholesterol in HDL [Mass ratio]3.0 {ratio}<5.0ACMC Healthcare Systemodium [Moles/volume] in Serum or PlasmaOrdered By: Jeannie Aguilar 26-14-8098Obtdhj [Moles/Vol]141 mmol/X358-404MjccnzbkiMercy HealthTriglyceride [Mass/volume] in Serum or PlasmaOrdered By: Jeannie Aguilar on 07-31-2023 Triglyceride [Mass/Vol]89 mg/dL0-149Mercy HealthComment on above:TRIG ATP III CLASSIFICATIONTRIG less than 150 mg/dL NormalTRIG 150-199 mg/dL Borderline highTRIG 200-500 mg/dL High TRIG greater than 500 mg/dL Very highStandard traceable to the Center for Disease Conrtrol and Prevention (CDC) test method.Urea nitrogen [Mass/volume] in Serum or PlasmaOrdered By: Jeannie Aguilar on 39-29-5881Fgxr nitrogen [Mass/Vol]26 mg/dL7-25Mercy HealthUrine microalbumin/creatinine mass ratioOrdered By: Jeannie Aguilar on 44-78-3763Tlazkql/Creatinine DL <= 20 mg/L (U) [Mass ratio]TNPMercy HealthComment on above:Test not performedVitamin D+Metabolites [Mass/volume] in Serum or PlasmaOrdered By: Jeannie Aguilar on 43-37-1319Nkvxate D+Metabolites [Mass/Vol]57.3 ng/mO92-788NnntxpjifMercy HealthComment on above:VITAMIN D STATUS 25(OH)VITAMIN D RANGE (ng/mL) Deficient <20 Insufficient 20 to <27Qswsppzpqd62 to 100Reference: Milan MF,Vanessa GONZALEZ, Caesar ASIF, et al. Evaluation,treatment, and prevention of vitamin D deficiency; an Endocrine Society clinical practice guideline. JCEM. 2010; 96 (7):1911-30.Activated partial thromboplastin time (aPTT) in platelet poor plasma by coagulation aOrdered By: Roxane Bills on 52-31-5556rIEW Coag (PPP) [Time]23.4 s 25.1-36.5FAvita Health System Galion HospitalComment on above:A hematocrit value greater than 55% may lead to inaccurate results in coagulation testing. Patients having hematocrit values >55% require a special collection tube for coagulation studies. Please contact the laboratory at [phone] for redraw instructions. Basophils Auto (Bld) [#/Vol]Ordered By: Roxane Bills on 33-21-8570Pegxkofua (Bld) [#/Vol]0.1 10*3/uL0.0-0.2FAvita Health System Galion HospitalBasophils/100 WBC Auto (Bld)Ordered By: Roxane Bills on 52-14-7020Adjynatis/100 WBC (Bld)1.3 %.[facility]cy HealthEosinophils Auto (Bld) [#/Vol]Ordered By: Roxane Bills on 51-07-9450Dysgsiwcgae (Bld) [#/Vol]0.9 10*3/uL0.0-0.45Mercy HealthEosinophils/100 WBC Auto (Bld)Ordered By: Roxane Bills on 02-12-2023 Eosinophils/100 WBC (Bld)7.7 %.[facility] HealthErythrocyte distribution width Auto (RBC) [Ratio]Ordered By: Roxane Bills on 02-12-2023 Erythrocyte distribution width (RBC) [Ratio]14.1 %11.9-15.3FAvita Health System Galion HospitalHematocrit Auto (Bld) [Volume fraction]Ordered By: Roxane Bills on 75-69-6739Dvcifooscd (Bld) [Volume fraction]38.9 %34.0-46.4FAvita Health System Galion HospitalHemoglobin [Mass/volume] in BloodOrdered By: Roxane Bills on 74-69-7289Puxvpxocxg (Bld) [Mass/Vol]12.8 g/dL11.8-15.4FAvita Health System Galion HospitalINR in Platelet poor plasma by Coagulation assayOrdered By: Roxane Bills on 42-66-5528LOV Coag (PPP) [Relative time]1.0 {INR}[facility]cy HealthComment on above:INR Therapeutic Range A) Pre- and Peroperative OAT started two weeks before surgery. NOT HIP SURGERY: 1.5 - 2.5 HIP SURGERY: 2 - 3B) Primary and secondary prevention of venous THROMBOSIS: 2 - 3C) Active venous thrombosis, pulmonary embolismand prevention of recurrent venous thrombosis: 2 - 3D) Prevention of arterial thromboembolismincluding patients with mechanical heart valves: 3 - 4.5Leukocytes [#/volume] corrected for nucleated erythrocytes in Blood by Automated counOrdered By: Roxane Bills on 41-33-8187KPG corrected for nucl RBC Auto (Bld) [#/Vol]11.7 10*3/uL3.8-11.6 [facility] HealthLymphocytes Auto (Bld) [#/Vol]Ordered By: Roxane Bills on 76-69-7256Byiouqjuhps (Bld) [#/Vol]2.8 10*3/uL1.00-4.8Mer[facility] HealthLymphocytes/100 WBC Auto (Bld)Ordered By: Roxane Bills on 32-94-7020Ngzayheptah/100 WBC (Bld)24.2 %.[facility] HospitalH Auto (RBC) [Entitic mass]Ordered By: Roxane Bills on 57-39-5796MCI (RBC) [Entitic mass]30.0 pg24.7-34.3FKettering Health Behavioral Medical CenterHC Auto (RBC) [Mass/Vol] Ordered By: Roxane Bills on 84-74-2196ZFPE (RBC) [Mass/Vol]32.9 g/dL32.0-35.0 [facility] HealthMCV Auto (RBC) [Entitic vol]Ordered By: Roxane Bills on 24-34-0822XLU (RBC) [Entitic vol]91.2 gC04-085HznsauaffMercy HealthMonocytes Auto (Bld) [#/Vol]Ordered By: Roxane Bills on 02-12-2023 Monocytes (Bld) [#/Vol]1.0 10*3/uL0.0-0.8[facility] Monocytes/100 WBC Auto (Bld)Ordered By: Roxane Bills on 60-00-6399Pnmbpywdd/100 WBC (Bld)9.0 %.[facility]cy HealthNeutrophils Auto (Bld) [#/Vol] Ordered By: Roxane Bills on 97-68-3560Swxexzurtls (Bld) [#/Vol]6.8 10*3/uL1.8-7.7 [facility] HealthNeutrophils/100 WBC Auto (Bld)Ordered By: Roxane Bills on 83-72-7888Dezdpbhvqlb/100 WBC (Bld)57.8 %.[facility] HealthNucleated erythrocytes [Presence] in Blood by Automated countOrdered By: Roxane Bills on 54-18-0615Yylqqejjn RBC Auto Ql (Bld)0.1 /100{WBC}0-0.5FAvita Health System Galion HospitalPlatelet mean volume Auto (Bld) [Entitic vol]Ordered By: Roxane Bills on 87-88-4679Qapbcdmy mean volume (Bld) [Entitic vol]7.0 fL6.3-10.7 [facility] HealthPlatelets Auto (Bld) [#/Vol]Ordered By: Roxane Bills on 90-91-3299Lbhsmlxtq (Bld) [#/Vol]334 10*3/tO138-196WwfgqlaflMercy HealthProthrombin time (PT)Ordered By: Roxane Bills on 65-46-4132CZ Coag (PPP) [Time]12.4 s9.0-12.9Mer[facility] HealthComment on above:A hematocrit value greater than 55% may lead to inaccurate results in coagulation testing. Patientshaving hematocrit values >55% require a special collection tube for coagulation studies. Please contact the laboratory at [phone] for redraw instructions.RBC Auto (Bld) [#/Vol]Ordered By: Roxane Bills on 88-95-7143WPB (Bld) [#/Vol]4.27 10*6/uL3.60-5.00Mercy HealthWBC Auto (Bld) [#/Vol]Ordered By: Roxane Bills on 20-43-5157SZK (Bld) [#/Vol]11.7 10*3/uL 3.8-11.6FAvita Health System Galion HospitalAlanine aminotransferase [Enzymatic activity/volume] in Serum or PlasmaOrdered By: Roxane Bills on 62-05-4550OHF [Catalytic activity/Vol]47 U/L7-52Mer[facility] HealthAlbumin [Mass/volume] in Serum or Plasma by Bromocresol green (BCG) dye binding metho Ordered By: Roxane Bills on 48-72-2418Spnfjoo BCG dye [Mass/Vol]3.7 g/dL3.5-5.7 Mer[facility] HealthAlkaline phosphatase [Enzymatic activity/volume] in Serum or PlasmaOrdered By: Roxane Bills on 95-09-6332GIO [Catalytic activity/Vol]169 U/PCdck99-107NbsyivoduMercy Health Aspartate aminotransferase [Enzymatic activity/volume] in Serum or PlasmaOrdered By: Roxane Bills on 36-39-2518VWV [Catalytic activity/Vol]48 U/JNsin37-85XidnwyubzMercy HealthBasophils Auto (Bld) [#/Vol]Ordered By: Roxane Bills on 94-89-9193Tmiobobwt (Bld) [#/Vol]0.1 10*3/uL0.0-0.2FAvita Health System Gal[facility] HospitalBasophils/100 WBC Auto (Bld)Ordered By: Roxane Bills on 01-22-2023 Basophils/100 WBC (Bld)0.5 %.[facility] HealthBilirubin.total [Mass/volume] in Serum or PlasmaOrdered By: Roxane Bills on 99-93-7709Dtogrgmaj [Mass/Vol]0.4 mg/dL0.3-1.0Mer[facility] HealthCalcium [Mass/volume] in Serum or PlasmaOrdered By: Roxane Bills on 82-02-1122Wocjrqr [Mass/Vol]8.6 mg/dL8.6-10.3FAvita Health System Galion HospitalCarbon dioxide, total [Moles/volume] in Serum or PlasmaOrdered By: Roxane Bills on 03-87-4741KC7 [Moles/Vol]32.1 mmol/LHigh21.0-31.0Mer[facility] HealthChloride [Moles/volume] in Serum or PlasmaOrdered By: Roxane Bills on 38-57-9557Nnxtbjbz [Moles/Vol]100 mmol/F78-516KgdfrmatyMercy HealthCreatinine [Mass/volume] in Serum or PlasmaOrdered By: Roxane Bills on 02-31-0837Oztaotqkdw [Mass/Vol]1.37 mg/dLHigh0.60-1.20Mer[facility] HealthEosinophils Auto (Bld) [#/Vol]Ordered By: Roxane Bills on 40-92-2129Eteajknzulu (Bld) [#/Vol] 0.5 10*3/uLHigh0.0-0.45Mer[facility] HealthEosinophils/100 WBC Auto (Bld)Ordered By: Roxane Bills on 76-57-8247Ieciqwfpdxy/100 WBC (Bld)4.2 %. [facility] HealthErythrocyte distribution width Auto (RBC) [Ratio]Ordered By: Roxane Bills on 49-66-6284Irgxqcrsrxw distribution width (RBC) [Ratio]14.2 %11.9-15.3FAvita Health System Galion HospitalFerritin [Mass/volume] in Serum or PlasmaOrdered By: Roxane Bills on 16-17-2722Suebkblr [Mass/Vol]192.2 ng/mL11.0-306.8Mer[facility] HealthGlobulin Calc (S) [Mass/Vol] Ordered By: Roxane Bills on 12-89-2691Dzzknvez (S) [Mass/Vol]4.2 g/dLMercy HealthGlucose [Mass/volume] in Serum or PlasmaOrdered By: Roxane Bills on 25-63-5711Nmoqxsx [Mass/Vol]199 mg/dTAbux33-599NtthmrryjMercy HealthComment on above:ADA recommended reference rangeRandom Glucose Reference Range is dependent on time and content of last meal. Glucose of more than 200 mg/dL in a nonstressed, ambulatory subject supports the diagnosisof Diabetes Mellitus.Hematocrit Auto (Bld) [Volume fraction]Ordered By: Roxane Bills on 71-15-5735Ktcixvvxbi (Bld) [Volume fraction]37.8 %34.0-46.4FAvita Health System Galion HospitalHemoglobin [Mass/volume] in BloodOrdered By: Roxane Bills on 97-19-0103Vzrzjzdzwc (Bld) [Mass/Vol]12.3 g/dL11.8-15.4FAvita Health System Galion HospitalIgA [Mass/volume] in Serum or PlasmaOrdered By: Roxane Bills on 55-10-3772BxC [Mass/Vol]669 mg/vYJvss31-080OldcfhpflMercy HealthIgG [Mass/volume] in Serum or PlasmaOrdered By: Roxane Bills on 01-49-7699GjQ [Mass/Vol]1764 mg/aHXnya199-3694BmxjdtwppMercy HealthIgM [Mass/volume] in Serum or PlasmaOrdered By: Roxane Bills on 54-01-7087HcP [Mass/Vol]107 mg/sY67-645MmhqauexcMercy HealthComment on above: Performed at: [address] [id number] Director: Jhoan Rich PhD, Phone: [phone] light chains.kappa.free [Mass/volume] in SerumOrdered By: Roxane Bills on 01-22-2023 Immunoglobulin light chains.kappa.free (S) [Mass/Vol]237.9 mg/LHigh3.3-19.4 [facility] HealthImmunoglobulin light chains.kappa.free/Immunoglobulin light chains.lambda.free [MassOrdered By: Roxane Bills on 72-06-9589Mmrjewhdpludur light chains.kappa.free/Immunoglobulin light chains.lambda.free (S) [Mass ratio]6.22Dgeu6.26-1.65Mer[facility] HealthComment on above:Performed at: [facility] Lab[address] [id number] Director: Jhoan Rich PhD, Phone: [phone] Immunoglobulin light chains.lambda.free [Mass/volume] in Serum or PlasmaOrdered By: Roxane Bills on 49-84-9327Jmexbbvnulojyw light chains.lambda.free [Mass/Vol] 38.0 mg/LHigh5.7-26.3FAvita Health System Galion HospitalIron [Mass/volume] in Serum or PlasmaOrdered By: Roxane Bills on 87-69-3460Ugtf [Mass/Vol]74 ug/aN00-988 [facility] HealthIron binding capacity [Mass/volume] in Serum or PlasmaOrdered By: Roxane Bills on 18-02-6344Vuxl binding capacity [Mass/Vol]311 ug/zI456-095AjzdmhqxfMercy HealthIron saturation [Mass Fraction] in Serum or PlasmaOrdered By: Roxane Bills on 82-23-4739Eovb saturation [Mass fraction]23.8 %20-50Mer[facility] HealthLeukocytes [#/volume] corrected for nucleated erythrocytes in Blood by Automated counOrdered By: Roxane Bills on 78-77-7950URT corrected for nucl RBC Auto (Bld) [#/Vol]12.4 10*3/uLHigh 3.8-11.6FAvita Health System Gal[facility] HospitalLymphocytes Auto (Bld) [#/Vol]Ordered By: Roxane Bills on 95-18-6351Uqsucetjaae (Bld) [#/Vol]3.2 10*3/uL1.00-4.8Mer[facility] HealthLymphocytes/100 WBC Auto (Bld)Ordered By: Roxane Bills on 16-54-8767Ngqqhdrszgi/100 WBC (Bld)25.5 %.[facility] HospitalH Auto (RBC) [Entitic mass]Ordered By: Roxane Bills on 74-97-9006GJD (RBC) [Entitic mass]30.0 pg24.7-34.3FAvita Health System Galion HospitalMCHC Auto (RBC) [Mass/Vol] Ordered By: Roxane Bills on 73-48-6280WBGW (RBC) [Mass/Vol]32.7 g/dL32.0-35.0 [facility] HealthMCV Auto (RBC) [Entitic vol]Ordered By: Roxane Bills on 51-04-7972IEV (RBC) [Entitic vol]91.9 eM89-312KjiwssynxMercy HealthMonocytes Auto (Bld) [#/Vol]Ordered By: Roxane Bills on 01-22-2023 Monocytes (Bld) [#/Vol]0.7 10*3/uL0.0-0.8[facility] Monocytes/100 WBC Auto (Bld)Ordered By: Roxane Bills on 13-99-2913Kcrvsvtep/100 WBC (Bld)5.6 %.[facility] HealthNeutrophils Auto (Bld) [#/Vol] Ordered By: Roxane Bills on 26-53-4033Gtdhggxnjhp (Bld) [#/Vol]8.0 10*3/uLHigh 1.8-7.7FAvita Health System Gal[facility] HospitalNeutrophils/100 WBC Auto (Bld)Ordered By: Roxane Bills on 84-99-5784Xwvwusvaimh/100 WBC (Bld)64.2 %.[facility] HealthNo Panel InformationOrdered By: Roxane Bills on 91-96-5224Uesvftgbo GFR (CKD-EPI)43.118 mL/MinMercy HealthPharmacy Creatinine Clearance (Chem44.97ACMC Healthcare Systemerum ImmunofixationSee commentAbnormal.Mercy HealthComment on above:Immunofixation shows IgG monoclonal protein with kappalight chain specificity. PLEASE NOTE: Samplesfrom patients receiving DARZALEX(R)(daratumumab) or SARCLISA(R)(isatuximab-irfc) treatmentcan appear as an IgG kappa and mask a complete response(CR). If this patient is receiving these therapies, thisIFE assay interference can be removed by ordering testnumber [id number]- Immunofixation, Daratumumab-Specific,Serum or [id number]- Immunofixation, Isatuximab- Specific,Serum and submitting a new sample for testing or bycalling the lab to add this test to the current sample.Nucleated erythrocytes [Presence] in Blood by Automated countOrdered By: Roxane Bills on 73-37-1062Fyyibirwd RBC Auto Ql (Bld) 0.0 /100{WBC}0-0.5FAvita Health System Galion HospitalPlatelet mean volume Auto (Bld) [Entitic vol]Ordered By: Roxane Bills on 01-11-2139Vwaxpiqg mean volume (Bld) [Entitic vol]7.0 fL6.3-10.7FAvita Health System Galion HospitalPlatelets Auto (Bld) [#/Vol]Ordered By: Roxane Bills on 68-50-2738Lhpoeehax (Bld) [#/Vol]299 10*3/uL 150-450[facility] HealthPotassium [Moles/volume] in Serum or PlasmaOrdered By: Roxane Bills on 90-16-1352Emhcaleyj [Moles/Vol]4.2 mmol/L3.5-5.1 [facility] HealthProtein [Mass/volume] in Serum or PlasmaOrdered By: Roxane Bills on 77-47-5774Rtccngo [Mass/Vol]7.9 g/dL6.4-8.9[facility] HealthRBC Auto (Bld) [#/Vol]Ordered By: Roxane Bills on 00-44-3734IMP (Bld) [#/Vol]4.11 10*6/uL3.60-5.00[facility] Systemerum or plasma albumin/globulin mass ratioOrdered By: Roxane Bills on 33-17-2764Tdoswcz/Globulin [Mass ratio]0.9 {ratio}[facility] Systemerum or plasma anion gap determinationOrdered By: Roxane Bills on 20-06-5663Rihfg gap [Moles/Vol]13.1 mmol/L6.0-15.0[facility] Systemodium [Moles/volume] in Serum or PlasmaOrdered By: Roxane Bills on 25-91-3360Jfgyzt [Moles/Vol]141 mmol/W208-451 [facility] HealthTransferrin [Mass/volume] in Serum or Plasma Ordered By: Roxane Sanju on 65-85-4512Gcfqgfjyzhp [Mass/Vol]222 mg/dR056-622 [facility] HealthUrea nitrogen [Mass/volume] in Serum or Plasma Ordered By: Roxane Gairbayse on 58-78-6011Tgfy nitrogen [Mass/Vol]13 mg/dL7-25Mer[facility] HealthWBC Auto (Bld) [#/Vol]Ordered By: Roxane Sanju on 29-89-7298VTW (Bld) [#/Vol]12.4 10*3/uLHigh3.8-11.6FAvita Health System Galion HospitalGlucose Glucometer (BldC) [Mass/Vol]Ordered By: Nik Pineda on 46-04-7091Prxwtrz [Mass/Vol]202 mg/dLMercy HealthComment on above:Random Glucose Reference Range is dependent on time and content of last meal. Glucose of more than 200 mg/dL in a nonstressed, ambulatory subject supports the diagnosis of Diabetes Mellitus.No Panel InformationOrdered By: Nik Pineda on 16-48-3081Xtrgqnf Glucose CommentGlu2: cleaned meterMercy HealthAlbumin [Mass/volume] in Serum or Plasma by Bromocresol green (BCG) dye binding methoOrdered By: Jeannie Aguilar on 33-70-5418Ctfntuy BCG dye [Mass/Vol]3.8 g/dL3.5-5.7FAvita Health System Galion HospitalCalcium [Mass/volume] in Serum or PlasmaOrdered By: Jeannie Aguilar on 67-06-5664Vvvqrrt [Mass/Vol]9.2 mg/dL8.6-10.3FAvita Health System Galion HospitalCarbon dioxide, total [Moles/volume] in Serum or PlasmaOrdered By: Jeannie Aguilar on 08-07-2022 CO2 [Moles/Vol]32.6 mmol/L21.0-31.0[facility] HealthChloride [Moles/volume] in Serum or PlasmaOrdered By: Jeannie Aguilar on 6713Yohuslfu [Moles/Vol]104 mmol/Q57-478VgklhtevwMercy HealthCholesterol [Mass/volume] in Serum or PlasmaOrdered By: Jeannie Aguilar on 08-07-2022 Cholesterol [Mass/Vol]148 mg/nN564-013OhezzcymnMercy HealthComment on above:Chol less than 200 mg/dl low riskChol 201-239 mg/dl borderline riskChol 240 mg/dl and greater high riskCholesterol in LDL Calc [Mass/Vol]Ordered By: Jeannie Aguilar on 71-14-7916Kjklwvnlgby in LDL [Mass/Vol]82 mg/dL0-100Mercy HealthComment on above:LDL ATP III CLASSIFICATIONLDL less than 100 mg/dL OptimalLDL 100-129 mg/dL Near or above rvjujujVZS794-322 mg/dL Borderline highLDL 160-189 mg/dL HighLDL greater than 189 mg/dL Very high Cholesterol in VLDL Calc [Mass/Vol]Ordered By: Jeannie Aguilar on 08-07-2022 Cholesterol in VLDL [Mass/Vol]15 mg/dLMercy Health Creatinine [Mass/volume] in Serum or PlasmaOrdered By: Jeannie Aguilar 98-76-6470Tpzplvvxaf [Mass/Vol]1.65 mg/dL0.60-1.20[facility] HealthCreatinine [Mass/volume] in UrineOrdered By: Jeannie Aguilar 08-07-2022 Creatinine (U) [Mass/Vol]51.0 mg/dL11.0-20.0[facility] Glucose [Mass/volume] in Serum or PlasmaOrdered By: Jeannie Aguilar on 08-07-2022 Glucose [Mass/Vol]71 mg/kO76-448UupdzspttMercy HealthComment on above:ADA recommended reference rangeRandom Glucose Reference Range is dependent on time and content of last meal. Glucose of more than 200 mg/dL in a nonstressed, ambulatory subject supports the diagnosisof Diabetes Mellitus. Microalbumin [Mass/volume] in UrineOrdered By: Jeannie Aguilar on 08-07-2022 Albumin DL <= 20 mg/L (U) [Mass/Vol]mg/dL0.0-1.8[facility] HealthNo Panel InformationOrdered By: Jeannie Aguilar on 05-09-2970J-Peptide1.6 ng/mL1.1-4.4FAvita Health System Galion HospitalComment on above:C-Peptide reference interval is for fasting patients.Performed at: - [place] [id number] Director: Jhoan Rich PhD, Phone: [phone] GFR (CKD-EPI)34.710 mL/MinMercy Health Pharmacy Creatinine Clearance (ChemN/[facility] SystemPhosphate [Mass/volume] in Serum or PlasmaOrdered By: Jeannie Aguilar on 08-07-2022 Phosphate [Mass/Vol]4.5 mg/dL3.7-7.2FAvita Health System Galion HospitalPotassium [Moles/volume] in Serum or PlasmaOrdered By: Jeannie Aguilar on 08-07-2022 Potassium [Moles/Vol]4.8 mmol/L3.5-5.1FChillicothe VA Medical Centererum or plasma anion gap determinationOrdered By: Jeannie Aguilar on 79-35-8495Pnpzl gap [Moles/Vol]12.2 mmol/L6.0-15.0ACMC Healthcare Systemerum or plasma high density lipoprotein (HDL) cholesterol measurementOrdered By: Jeannie Aguilar on 67-91-9236Mqeubcczjas in HDL [Mass/Vol]51 mg/tL03-49UlhdutclwMercy HealthComment on above:HDL CHOL ATP-III CLASSIFICATION Cardiovascular RiskHDL > or equal to 60 mg/dL LOWHDL < 40 mg/dL HIGHSerum or plasma total cholesterol/high density lipoprotein (HDL) cholesterol mass ratOrdered By: Jeannie Aguilar on 59-98-1732Uyyyhycslfw.total/Cholesterol in HDL [Mass ratio]2.9 {ratio}<5.0ACMC Healthcare Systemodium [Moles/volume] in Serum or PlasmaOrdered By: Jeannie Aguilar on 12-64-3097Rdjxdp [Moles/Vol]144 mmol/S851-946 [facility] HealthTriglyceride [Mass/volume] in Serum or Plasma Ordered By: Jeannie Aguilar on 50-62-4341Rwodwdyizgxu [Mass/Vol]75 mg/dL0-149 [facility] HealthComment on above:TRIG ATP III CLASSIFICATIONTRIG less than 150 mg/dL NormalTRIG 150-199 mg/dL Borderline highTRIG 200-500 mg/dL High TRIG greater than 500 mg/dL Very highStandard traceable to the Center for Disease Conrtrol and Prevention (CDC) test method. Urea nitrogen [Mass/volume] in Serum or PlasmaOrdered By: Jeannie Aguilar on 03-33-7348Gkcs nitrogen [Mass/Vol]22 mg/dL7-25[facility] Urine microalbumin/creatinine mass ratioOrdered By: Jeannie Aguilar on 08-07-2022 Albumin/Creatinine DL <= 20 mg/L (U) [Mass ratio]TNPMercy HealthComment on above:Test not performedVitamin D+Metabolites [Mass/volume] in Serum or PlasmaOrdered By: Jeannie Aguilar on 19-63-8184Eeuojhw D+Metabolites [Mass/Vol]47.6 ng/wG75-447KekcijwgcMercy HealthComment on above: VITAMIN D STATUS 25(OH)VITAMIN D RANGE (ng/mL) Deficient <20 Insufficient 20 to <84Cefkqvovrb89 to 100Reference: [place] SMALLS,Vanessa GONZALEZ, Caesar ASIF, et al. Evaluation,treatment, and prevention of vitamin D deficiency; an Endocrine Society clinical practice guideline. JCEM. 2010; 96(7):1911-30.Albumin [Mass/volume] in Serum or PlasmaOrdered By: Raymundo Galicia on 59-79-3612Ztcsnlq [Mass/Vol]3.2 g/dL2.9-4.4FAvita Health System Galion HospitalBasophils Auto (Bld) [#/Vol]Ordered By: Raymundo Galicia on 73-60-0049Nswmgltrc (Bld) [#/Vol]0.0 10*3/uL 0.0-0.2FAvita Health System Galion HospitalBasophils/100 WBC Auto (Bld)Ordered By: Raymundo Galicia on 60-80-7955Vvkomazak/100 WBC (Bld)0.5 %.[facility] HealthEosinophils Auto (Bld) [#/Vol]Ordered By: Raymundo Grayson on 71-50-7294Zvpkkcrgpbn (Bld) [#/Vol]0.6 10*3/uL0.0-0.45Mer[facility] HealthEosinophils/100 WBC Auto (Bld)Ordered By: Raymundo Galicia on 07-22-2022 Eosinophils/100 WBC (Bld)6.1 %.[facility] HealthErythrocyte distribution width Auto (RBC) [Ratio]Ordered By: Raymundo Galicia on 07-22-2022 Erythrocyte distribution width (RBC) [Ratio]14.7 %11.9-15.3FAvita Health System Galion HospitalFerritin [Mass/volume] in Serum or PlasmaOrdered By: Raymundo Galicia on 00-75-4789Mqribstc [Mass/Vol]284.4 ng/mL11.0-306.8Mer[facility] HealthHematocrit Auto (Bld) [Volume fraction]Ordered By: Raymundo Galicia on 92-84-6779Xdwyxxxwmt (Bld) [Volume fraction]37.1 %34.0-46.4FAvita Health System Galion HospitalHemoglobin [Mass/volume] in BloodOrdered By: Raymundo Galicia on 43-47-6332Lqemyosbcm (Bld) [Mass/Vol]12.1 g/dL11.8-15.4FAvita Health System Galion HospitalIgA [Mass/volume] in Serum or PlasmaOrdered By: Raymundo Galicia on 81-09-8634AfD [Mass/Vol]656 mg/wC70-418HivwkrxctMercy HealthIgG [Mass/volume] in Serum or PlasmaOrdered By: Raymundo Galicia on 42-01-4631PcX [Mass/Vol]1303 mg/cU604-0107DufqkfwifMercy HealthIgM [Mass/volume] in Serum or PlasmaOrdered By: Raymundo Galicia on 21-95-9081ThV [Mass/Vol]91 mg/dL 26-217Mercy HealthComment on above:Performed at: [address] [id number] Director: Jhoan Rich PhD, Phone: [phone] light chains.kappa.free [Mass/volume] in SerumOrdered By: Raymundo Galicia on 07-22-7474Ddhleelxxvszhn light chains.kappa.free (S) [Mass/Vol]120.4 mg/L3.3-19.4FAvita Health System Galion HospitalImmunoglobulin light chains.kappa.free/Immunoglobulin light chains.lambda.free [MassOrdered By: Raymundo Galicia on 44-54-4055Gxojcwqovfglbu light chains.kappa.free/Immunoglobulin light chains.lambda.free (S) [Mass ratio] 3.660.26-1.65Mer[facility] HealthComment on above:Performed at: [facility] [id number] Director: Jhoan Rich PhD, Phone: [phone] light chains.lambda.free [Mass/volume] in Serum or PlasmaOrdered By: Raymundo Galicia on 07-22-2022 Immunoglobulin light chains.lambda.free [Mass/Vol]32.9 mg/L5.7-26.3FAvita Health System Galion HospitalIron [Mass/volume] in Serum or PlasmaOrdered By: Raymundo Galicia on 85-10-2750Xydz [Mass/Vol]67 ug/lF32-507MyilmlvnyMercy HealthIron binding capacity [Mass/volume] in Serum or PlasmaOrdered By: Raymundo Galicia on 46-85-6357Mjcn binding capacity [Mass/Vol]290 ug/mX826-364QaqneldpkMercy HealthIron saturation [Mass Fraction] in Serum or PlasmaOrdered By: Raymundo Galicia on 14-90-7638Twbx saturation [Mass fraction]23.1 %20-50 [facility] HealthLaboratory - Chemistry and Chemistry - challengeOrdered By: Raymundo Galicia on 90-38-1249Bbjxfse [Mass/Vol]0.5 g/dLHigh Not ObservedMercy HealthLeukocytes [#/volume] corrected for nucleated erythrocytes in Blood by Automated counOrdered By: Raymundo Galicia on 33-52-5901TDQ corrected for nucl RBC Auto (Bld) [#/Vol]10.2 10*3/uL3.8-11.6 [facility] HealthLymphocytes Auto (Bld) [#/Vol]Ordered By: Raymundo Galicia on 87-68-7109Uncnscpnqiz (Bld) [#/Vol]2.6 10*3/uL1.00-4.8Mercy HealthLymphocytes/100 WBC Auto (Bld)Ordered By: Raymundo Galicia on 90-84-8921Pqvfaueiult/100 WBC (Bld)25.2 %.[facility] MCH Auto (RBC) [Entitic mass]Ordered By: Raymundo Galicia on 87-18-7474IBN (RBC) [Entitic mass]29.6 pg24.7-34.3FAvita Health System Galion HospitalMCHC Auto (RBC) [Mass/Vol]Ordered By: Raymundo Galicia on 36-87-6777LYBV (RBC) [Mass/Vol]32.7 g/dL 32.0-35.0Mercy HealthMCV Auto (RBC) [Entitic vol]Ordered By: Raymundo Galicia on 36-76-8586OBK (RBC) [Entitic vol]90.4 zH09-745OtctbhkfsMercy HealthMonocytes Auto (Bld) [#/Vol]Ordered By: Rayumndo Galicia on 96-61-5505Zllbyjaln (Bld) [#/Vol]0.7 10*3/uL0.0-0.8Mercy HealthMonocytes/100 WBC Auto (Bld)Ordered By: Raymundo Galicia on 07-22-2022 Monocytes/100 WBC (Bld)7.0 %.[facility]cy HealthNeutrophils Auto (Bld) [#/Vol]Ordered By: Raymundo Galicia on 92-21-5923Nicyigphhxs (Bld) [#/Vol]6.2 10*3/uL1.8-7.7FAvita Health System Galion HospitalNeutrophils/100 WBC Auto (Bld) Ordered By: Raymundo Galicia on 79-41-2276Oihzsvigknu/100 WBC (Bld)61.2 %.[facility] HealthNo Panel InformationOrdered By: Raymundo Galicia on 30-72-0161Mzdzfsm Electrophoresis NoteSee comment.Mercy HealthComment on above:Protein electrophoresis scan will follow via computer,mail, or green building engineer delivery.Performed at: [address] [id number] Director: Jhoan Rich PhD, Phone: [phone] Serum ImmunofixationSee comment.Mercy HealthComment on above:Immunofixation shows IgG monoclonal protein with kappalight chain specificity. PLEASE NOTE: Samplesfrom patients receiving DARZALEX(R)(daratumumab) or SARCLISA(R)(isatuximab-irfc) treatmentcan appear as an IgG kappa and mask a complete response(CR). If this patient is receiving these therapies, thisIFE assay interference can be removed by ordering testnumber [id number]- Immunofixation, Daratumumab-Specific,Serum or [id number]- Immunofixation, Isatuximab-Specific,Serum and submitting a new sample for testing or bycalling the lab to add this test to the current sample.Nucleated erythrocytes [Presence] in Blood by Automated countOrdered By: Raymundo Galicia on 50-37-6470Vwfnwhdlq RBC Auto Ql (Bld)0.0 /100{WBC}0-0.5FAvita Health System Galion HospitalPlatelet mean volume Auto (Bld) [Entitic vol]Ordered By: Raymundo Galicia on 11-47-2026Xzahzkks mean volume (Bld) [Entitic vol]7.4 fL6.3-10.7 [facility] HealthPlatelets Auto (Bld) [#/Vol]Ordered By: Raymundo Galicia on 63-36-1868Ngblwtykl (Bld) [#/Vol]267 10*3/zY052-154IlgoxuldgMercy HealthProtein [Mass/volume] in Serum or PlasmaOrdered By: Raymundo Galicia on 93-02-1015Frilukj [Mass/Vol]7.1 g/dL6.0-8.5FAvita Health System Galion HospitalRBC Auto (Bld) [#/Vol]Ordered By: Raymundo Galicia on 93-90-8148KGJ (Bld) [#/Vol]4.10 10*6/uL3.60-5.00ACMC Healthcare Systemerum globulin measurement (mass/volume)Ordered By: Raymundo Grayson on 07-22-2022 Globulin (S) [Mass/Vol]3.9 g/dL2.2-3.9ACMC Healthcare Systemerum or plasma albumin/globulin mass ratioOrdered By: Raymundo Galicia on 07-22-2022 Albumin/Globulin [Mass ratio]0.8 {ratio}0.7-1.7FAvita Health System Gal[facility] Hospital Serum or plasma alpha 1 globulin measurement by electrophoresis (mass/volume) Ordered By: Raymundo Galicia on 55-83-0626Vamxh 1 globulin Elph [Mass/Vol]0.3 g/dL 0.0-0.4FChillicothe VA Medical Centererum or plasma alpha 2 globulin measurement by electrophoresis (mass/volume)Ordered By: Raymundo Galicia on 49-12-4733Etrbv 2 globulin Elph [Mass/Vol]1.0 g/dL0.4-1.0AC[facility] Healthcare Systemerum or plasma beta globulin measurement by electrophoresis (mass/volume)Ordered By: Raymundo Galicia on 40-08-6538Wmag globulin Elph [Mass/Vol]1.2 g/dL0.7-1.3FChillicothe VA Medical Centererum or plasma gamma globulin measurement by electrophoresis (mass/volume)Ordered By: Raymundo Galicia on 02-74-7946Ipbem globulin Elph [Mass/Vol]1.4 g/dL0.4-1.8Mercy HealthTransferrin [Mass/volume] in Serum or PlasmaOrdered By: Raymundo Galicia on 15-52-0178Dyunrunihze [Mass/Vol]207 mg/oW678-827EltyrbgeoMercy HealthWBC Auto (Bld) [#/Vol]Ordered By: Raymundo Galicia on 20-57-9491FSY (Bld) [#/Vol]10.2 10*3/uL3.8-11.6FAvita Health System Galion HospitalFFD mammogram Breast - bilateral Screeningon 13-97-5884UD screening mammo BI w/[facility] userfox Other MM screening mammo BI w/[facility] userfox Other MM screening mammo BI w/[id number] [facility]North[facility] Other MM screening mammo BI w/CADRICHAR Marie 35812Onzvj user[employer] Other MM screening mammo BI w/CADMammography ReportNorthwest Hospital Podio Other MM screening mammo BI w/CADSignedF[place] userfox Other MM screening mammo BI w/CADPatient: Kelsea Turcios MR#: [id number] [employer] Other MM screening mammo BI w/QMG02Oaqlp [employer] Other MM screening mammo BI w/CADDOB: 1960 Acct:[id number] [employer] Other MM screening mammo BI w/CADAge/Sex: 61 / F ADM Date: 05/23/22[place] user[employer] Other MM screening mammo BI w/CADLoc: PHYLICIA Room: Type: [facility] Podio Other MM screening mammo BI w/CADAttending Dr: Peri Tyson [facility] userfox Other MM screening mammo BI w/CADCopies to: Peri TysonSkylines [facility] userfox Other MM screening mammo BI w/CADOrdering Provider: Peri TysonSkylines [facility] CenterT[employer] Other MM screening mammo BI w/CADDate of Service: 05/23/22 [place] userfox Other MM screening mammo BI w/CADAccession #: ([id number]) MM/MM screening mammo BI w/CAD: Breast cancer screeningNorth userfox Other MM screening mammo BI w/CADBilateral Screening Full Field digital mammogram with 3-D imaging.[employer] Other MM screening mammo BI w/CADFull field digital CC and MLO imaging performed. CAD utilized.[employer] Other MM screening mammo BI w/CADCOMPARISON: 04/17/2021[place] userfox Other MM screening mammo BI w/CADHISTORY:ScreeningFarmington userfox Other MM screening mammo BI w/CADFINDINGS: Scattered fibroglandular densities of the breast parenchyma identified. No developingFarmington userfox Other MM screening mammo BI w/CADarchitectural distortion, developing focal breast asymmetry or developing malignant calcificationsFarmington userfox Other MM screening mammo BI w/CADidentified. Scattered benign calcifications identified.[employer] Other MM screening mammo BI w/CADORDER #: [id number] MM/MM screening mammo BI w/CADNocarondelet health userfox Other MM screening mammo BI w/CADIMPRESSION:No mammographic evidence of malignancy. Routine follow-up recommended in one year.[employer] Other MM screening mammo BI w/CADRESULT CODE: 2Npemiscot memorial health systems userfox Other MM screening mammo BI w/CADBenign Findings(s)[employer] Other MM screening mammo BI w/CADDENSITY CODE: 2 (approximately 25-50% glandular)[employer] Other MM screening mammo BI w/CADFOLLOW UP: 1YRNocarondelet health userfox Other MM screening mammo BI w/CADTHE FALSE-NEGATIVE RATE OF MAMMOGRAPHY IS APPROXIMATELY 10%.[employer] Other MM screening mammo BI w/CADIMAGING OF A PALPABLE ABNORMALITY MUST BE BASED ON CLINICAL GROUNDS.[employer] Other MM screening mammo BI w/CADPATIENT WAS ENTERED INTO A REMINDER SYSTEM WITH A TARGET DUE DATE FOR THE NEXT MAMMOGRAM.[employer] Other MM screening mammo BI w/CADImpression dictated by: Domenico Brown M.D.05/23/2022 12:04 [facility] userfox Other MM screening mammo BI w/CADDictation Location: [facility] [employer] Other MM screening mammo BI w/CADTranscribed By: PWS 05/23/22 [facility] HospitalSh[employer] Other MM screening mammo BI w/CADDictated By: Domenico Brown DO 05/23/22 [facility] HospitalNeurOpt[facility] userfox Other MM screening mammo BI w/CADSigned By:[employer] Other MM screening mammo BI w/CAD05/23/22 [facility] HospitalShiny Ads Other Albumin [Mass/volume] in Serum or PlasmaOrdered By: Peri Tyson on 88-76-6532Unnevof [Mass/Vol]3.4 g/dL3.2-5.5FAvita Health System Galion HospitalCholesterol [Mass/volume] in Serum or PlasmaOrdered By: Peri Tyson on 89-78-7790Okavefbvppm [Mass/Vol]149 mg/aMDlalpj890-043 mg/dLMercy HealthComment on above:Chol less than 200 mg/dl low riskChol 201-239 mg/dl borderline riskChol 240 mg/dl and greater high riskCholesterol in LDL Calc [Mass/Vol]Ordered By: Peri Tyson on 69-96-8337Jcqnxabieih in LDL [Mass/Vol]85 mg/dL0-100Mercy HealthComment on above:LDL ATP III CLASSIFICATIONLDL less than 100 mg/dL OptimalLDL 100-129 mg/dL Near or above eyrkuedRZB816-702 mg/dL Borderline highLDL 160-189 mg/dL HighLDL greater than 189 mg/dL Very highCholesterol in VLDL Calc [Mass/Vol]Ordered By: Peri Tyson on 39-02-8108Pvrhqapbgcw in VLDL [Mass/Vol]19 mg/dLMercy HealthComprehensive Metabolic Panelon 07-48-0150Iclqxrs [Mass/Vol] 3.039849 g/dLNormal3.2-5.5 g/dLNeurOptics userfox Other ALT [Catalytic activity/Vol]41 U/SPacqqk45-03 U/LNThinknum Other Bilirubin [Mass/Vol]0.5725725 mg/dLNormal0.3-1.2 mg/dL [employer] Other Calcium [Mass/Vol]9.4698796 mg/dLNormal8.2-10.2 mg/dL [employer] Other CO2 [Moles/Vol]30.68881258 mmol/LHigh22.0-30.0 mmol/L [employer] Other Creatinine [Mass/Vol]1.86725892 mg/dLHigh0.44-1.03 mg/dLNeurOptics userfox Other Potassium [Moles/Vol]4.44017843 mmol/LNormal3.5-5.1 mmol/LNThinknum Other Protein [Mass/Vol]7.942431 g/dLNormal6.1-7.9 g/dLOriel Therapeutics Other Comprehensive Metabolic Oofkj74Amjds userfox Other Comprehensive Metabolic Uyedy64FczzwShiny Ads Other Comprehensive Metabolic Panel4.2 g/dLOriel [employer] Other Creatinine and Glomerular filtration rate.predicted panel (S/P/Bld)Ordered By: Peri Tyson on 10-22-5494Vkityadotx [Mass/Vol]1.20 mg/dL0.44-1.03Mercy HealthEstimated glomerular filtration rate (GFR) non- AmericanOrdered By: Peri Tyson on 89-17-0519OAA/1.73 sq M.predicted among non-blacks MDRD (S/P/Bld) [Vol rate/Area]45 mL/MinMercy HealthGlobulin Calc (S) [Mass/Vol]Ordered By: Peri Tyson on 30-69-8692Caepakge (S) [Mass/Vol]4.2 g/dLMercy HealthLipid Panelon 96-67-0878Pmrkbpgatcf in LDL Elph Qn85 mg/dLNormal0-100 mg/dLShiny [employer] Other Lipid Panel96 mg/pWBepwha28-642 mg/dLO[employer] Other Lipid Panel19 mg/dLO[employer] Other Microalbumin, Urine (Random)on 09-96-6202Ngbrmsf DL <= 20 mg/L (U) [Mass/Vol]0.1176470 mg/dLNormal0.0-1.8 mg/dLOriel [employer]rapeutics Other No Panel InformationOrdered By: Peri Tyson on 50-13-2333Yaepbdpzy GFR ()55 mL/MinMercy HealthComment on above:GFR estimated reference range: According to KDOQI guidelines, <60 ml/min/1.73m2 is sufficient todiagnose a patient with chronic kidney disease.Pharmacy Creatinine Clearance (ChemN/[facility] SystemProtein [Mass/volume] in Serum or PlasmaOrdered By: Peri Tyson on 77-79-2912Houbmrh [Mass/Vol]7.6 g/dL6.1-7.9[facility] Serum or plasma alanine aminotransferase measurement without P-5'-P (enzymatic activiOrdered By: Peri Tyson on 02-76-9548SXK No additional P-5'-P [Catalytic activity/Vol]41 U/R96-32MuuyvgdqxACMC Healthcare Systemerum or plasma albumin/globulin mass ratioOrdered By: Peri Tyson on 05-09-2022 Albumin/Globulin [Mass ratio]0.8 {ratio}[facility] Healthcare Systemerum or plasma alkaline phosphatase measurement (enzymatic activity/volume)Ordered By: Peri Tyson on 40-18-2397RUF [Catalytic activity/Vol]137 U/TMoej34-54 U/L [facility] Healthcare Systemerum or plasma anion gap determinationOrdered By: Peri Tyson on 52-71-5543Ldrio gap [Moles/Vol]13.1 mmol/L6.0-15.0[facility] Systemerum or plasma aspartate aminotransferase measurement (enzymatic activity/volume)Ordered By: Peri Tyson on 56-65-8558XCY [Catalytic activity/Vol]49 U/WMmrq61-41 U/UK Healthcareerum or plasma calcium measurement (mass/volume)Ordered By: Peri Tyson on 70-88-1982Iqhohnt [Mass/Vol]9.5 mg/dL8.2-10.2FChillicothe VA Medical Centererum or plasma chloride measurement (moles/volume)Ordered By: Peri Tyson on 05-09-2022 Chloride [Moles/Vol]98 mmol/MKszhqa02-052 mmol/UK Healthcareerum or plasma glucose measurement (mass/volume)Ordered By: Peri Tyson on 55-93-3136Wjxrnim [Mass/Vol]186 mg/lVPdqg66-745 mg/dLMercy HealthComment on above:ADA recommended reference rangeRandom Glucose Reference Range is dependent on time and content of last meal. Glucose of more than 200 mg/dL in a nonstressed, ambulatory subject supports the diagnosisof Diabetes Mellitus.Serum or plasma high density lipoprotein (HDL) cholesterol measurementOrdered By: Peri Tyson on 58-73-4244Kawabeooeqr in HDL [Mass/Vol]45 mg/gDQpyjor99-88 mg/dLMercy HealthComment on above:HDL CHOL ATP-III CLASSIFICATION Cardiovascular RiskHDL > or equal to 60 mg/dL LOWHDL < 40 mg/dL HIGHSerum or plasma potassium measurement (moles/volume)Ordered By: Peri Tyson on 63-54-9788Mqqxcdejf [Moles/Vol]4.0 mmol/L3.5-5.1FChillicothe VA Medical Centererum or plasma sodium measurement (moles/volume)Ordered By: Peri Tyson on 81-03-5506Ybgzzg [Moles/Vol]138 mmol/EFuutwi771-450 mmol/L [facility] Systemerum or plasma total bilirubin measurement (mass/volume)Ordered By: Peri Tyson on 33-82-2407Tpcxojvbs [Mass/Vol]0.4 mg/dL 0.3-1.2FChillicothe VA Medical Centererum or plasma total carbon dioxide measurement (moles/volume)Ordered By: Peri Tyson on 02-00-0252OO3 [Moles/Vol] 30.9 mmol/L22.0-30.0[facility] Systemerum or plasma total cholesterol/high density lipoprotein (HDL) cholesterol mass ratOrdered By: Peri Tyson on 96-37-3709Vkjcfhmgmxw.total/Cholesterol in HDL [Mass ratio]3.3 {ratio}<5.0[facility] Healthcare Systemerum or plasma urea nitrogen measurement (mass/volume)Ordered By: Peri Tyson on 54-48-6969Ewsg nitrogen [Mass/Vol]11 mg/dLNormal9-23 mg/dLMercy HealthTS DL <= 0.005 mIU/L QnOrdered By: Peri Tyson on 92-57-6045XII Qn2.51 m[IU]/L0.45-5.33 Mercy HealthThyroid Stim Hormone w/Rflxon 74-56-7354Wmwiaqb Stim Hormone w/Rflx2.51 u[iU]/mLNormal0.45-5.33 u[iU]/mLNpemiscot memorial health systems userfox Other Triglyceride [Mass/volume] in Serum or PlasmaOrdered By: Peri Tyson on 22-15-9780Uiwtuziogves [Mass/Vol]96 mg/iS19-692CfvjrvpjwMercy HealthComment on above:TRIG ATP III CLASSIFICATIONTRIG less than 150 mg/dL NormalTRIG 150-199 mg/dL Borderline highTRIG 200-500 mg/dL High TRIG greater than 500 mg/dL Very highStandard traceable to the Center for Disease Conrtrol and Prevention (CDC) test method.Urine microalbumin measurement with detection limit of 20 mg/L or less (mass/volume)Ordered By: Peri Tyson on 67-01-2437Rkdetnk DL <= 20 mg/L (U) [Mass/Vol]0.6 mg/dL0.0-1.8Mercy HealthA1C HEMOGLOBINon 87-48-2269ErL1e (Bld) [Mass fraction]7.6 %[employer] Other HbA1c (Bld) [Mass fraction]on 32-44-5718K8G HEMOGLOBIN [employer] Other Albumin [Mass/volume] in Serum or PlasmaOrdered By: Roxane Bills on 03-38-0034Iofuknd [Mass/Vol]3.2 g/dL3.2-5.5FAvita Health System Galion HospitalAlbumin [Mass/Vol]3.4 g/dL2.9-4.4FAvita [facility] Basophils Auto (Bld) [#/Vol]Ordered By: Roxane Bills on 85-62-2445Rzxaltbkw (Bld) [#/Vol]0.1 10*3/uL0.0-0.2FAvita Health System Galion HospitalBasophils/100 WBC Auto (Bld)Ordered By: Roxane Bills on 37-77-7600Mumpgmbrw/100 WBC (Bld)0.5 %.[facility]cy HealthCT biopsyOrdered By: Roxane Bills on 74-73-4530Gtraqyhbiee [Mass/Vol]247 mg/nH881-193CzermvwfwMercy HealthCreatinine and Glomerular filtration rate.predicted panel (S/P/Bld)Ordered By: Roxane Bills on 13-40-3036Uwjlpzwryc [Mass/Vol]1.26 mg/dL0.44-1.03Mercy HealthEosinophils Auto (Bld) [#/Vol]Ordered By: Roxane Bills on 04-17-2022 Eosinophils (Bld) [#/Vol]0.6 10*3/uL0.0-0.45[facility] Eosinophils/100 WBC Auto (Bld)Ordered By: Roxane Bills on 09-36-3263Rjjobatuwmj/100 WBC (Bld)5.9 %.[facility] HealthErythrocyte distribution width Auto (RBC) [Ratio]Ordered By: Roxane Bills on 35-52-0450Pnpnejymhly distribution width (RBC) [Ratio]15.7 %11.9-15.3FAvita Health System Galion HospitalEstimated glomerular filtration rate (GFR) non- AmericanOrdered By: Roxane Bills on 70-10-8304FZA/1.73 sq M.predicted among non-blacks MDRD (S/P/Bld) [Vol rate/Area]43 mL/MinMercy HealthGFR/1.73 sq M.predicted among non-blacks MDRD (S/P/Bld) [Vol rate/Area]Estimated glomerular filtration rate (GFR) non- AmericanMercy HealthFerritin [Mass/volume] in Serum or PlasmaOrdered By: Roxane Bills on 02-36-4258Imeashla [Mass/Vol]72.6 ng/dO45-750.8Mercy HealthGlobulin Calc (S) [Mass/Vol]Ordered By: Roxane Bills on 10-23-2088Klsqiwqz (S) [Mass/Vol]3.8 g/dL [facility] HealthHematocrit Auto (Bld) [Volume fraction]Ordered By: Roxane Bills on 29-67-5986Tagxzdroaw (Bld) [Volume fraction]35.4 %34.0-46.4 [facility] HealthHemoglobin [Mass/volume] in BloodOrdered By: Roxane Bills on 61-81-0881Ecbwxisufa (Bld) [Mass/Vol]11.2 g/dL11.8-15.4FAvita Health System Galion HospitalIgA [Mass/volume] in Serum or PlasmaOrdered By: Roxane Bills on 63-75-4754GnS [Mass/Vol]625 mg/lQ46-216RvlvmlhqsMercy HealthIgG [Mass/volume] in Serum or PlasmaOrdered By: Roxane Sanju on 89-16-7642WgM [Mass/Vol]1443 mg/xS552-6820PzbccduhuMercy HealthIgM [Mass/volume] in Serum or PlasmaOrdered By: Roxane Garibayse on 14-61-4216MtM [Mass/Vol]98 mg/dL 26-217Mercy HealthComment on above:Performed at: [facility] [id number] Director: Jhoan Rich PhD, Phone: [phone] light chains.kappa.free [Mass/volume] in SerumOrdered By: Roxane Bills on 58-78-5597Cchgjigwjyoqtf light chains.kappa.free (S) [Mass/Vol]162.6 mg/L3.3-19.4FAvita Health System Galion HospitalImmunoglobulin light chains.kappa.free/Immunoglobulin light chains.lambda.free [MassOrdered By: Roxane Bills on 14-88-1472Doxjgfabtkmhlc light chains.kappa.free/Immunoglobulin light chains.lambda.free (S) [Mass ratio]3.65 0.26-1.65Mercy HealthComment on above:Performed at: [employer] [address] [id number] Director: Jhoan Rich PhD, Phone: [phone] light chains.lambda.free [Mass/volume] in Serum or PlasmaOrdered By: Roxane Bills on 04-17-2022 Immunoglobulin light chains.lambda.free [Mass/Vol]44.5 mg/L5.7-26.3FAvita Health System Galion HospitalIron [Mass/volume] in Serum or PlasmaOrdered By: Roxane Bills on 36-35-5759Ltzc [Mass/Vol]53 ug/wK84-609IvaxvudblMercy HealthIron binding capacity [Mass/volume] in Serum or PlasmaOrdered By: Roxane Bills on 86-77-6897Kqgp binding capacity [Mass/Vol]346 ug/iN297-311YuiedlugaMercy HealthIron saturation [Mass Fraction] in Serum or PlasmaOrdered By: Roxane Bills on 74-59-6181Elwc saturation [Mass fraction]15.3 %20-50Mercy HealthLaboratory - Chemistry and Chemistry - challengeOrdered By: Roxane Bills on 03-59-5149Rqdtfvt [Mass/Vol]0.4 g/dLNot ObservedMercy HealthLeukocytes [#/volume] corrected for nucleated erythrocytes in Blood by Automated counOrdered By: Roxane Bills on 99-74-2033EGX corrected for nucl RBC Auto (Bld) [#/Vol]10.8 10*3/uL3.8-11.6FAvita Health System Galion HospitalLymphocytes Auto (Bld) [#/Vol]Ordered By: Roxane Bills on 04-17-2022 Lymphocytes (Bld) [#/Vol]2.6 10*3/uL1.00-4.8[facility] Lymphocytes/100 WBC Auto (Bld)Ordered By: Roxane Bills on 92-89-1814Xjtcuxkpokz/100 WBC (Bld)24.5 %.[facility] Auto (RBC) [Entitic mass] Ordered By: Roxane Bills on 84-19-8539XEQ (RBC) [Entitic mass]27.9 pg24.7-34.3 [facility] HospitalHC Auto (RBC) [Mass/Vol]Ordered By: Roxane Bills on 91-62-4166PCAZ (RBC) [Mass/Vol]31.6 g/dL32.0-35.0Mercy HealthMCV Auto (RBC) [Entitic vol]Ordered By: Roxane Bills on 44-25-9726KIV (RBC) [Entitic vol]88.1 vX86-499IalazqzfjMercy HealthMonocytes Auto (Bld) [#/Vol]Ordered By: Roxane Bills on 51-05-5682Zpkylnwfb (Bld) [#/Vol]0.8 10*3/uL 0.0-0.8Mercy HealthMonocytes/100 WBC Auto (Bld)Ordered By: Roxane Bills on 91-59-8499Hrxckfnjd/100 WBC (Bld)7.9 %.Mercy HealthNeutrophils Auto (Bld) [#/Vol]Ordered By: Roxane Bills on 04-17-2022 Neutrophils (Bld) [#/Vol]6.6 10*3/uL1.8-7.7FAvita Health System Gal[facility] Hospital Neutrophils/100 WBC Auto (Bld)Ordered By: Roxane Bills on 52-05-3461Qecxtviclqc/100 WBC (Bld)61.2 %.[facility] HealthNo Panel InformationOrdered By: Roxane Bills on 93-55-7431Gfndcdtgf GFR ()52 mL/MinMercy HealthComment on above:GFR estimated reference range: According to KDOQI guidelines, <60 ml/min/1.73m2 is sufficient todiagnose a patient with chronic kidney disease.Pharmacy Creatinine Clearance (Chem51.63Mercy HealthProtein Electrophoresis NoteSee comment.Mercy HealthComment on above:Protein electrophoresis scan will follow via computer,mail, or green building engineer delivery.Performed at: [facility] [id number] Director: Jhoan Rich PhD, Phone: [phone] mL/[facility]uther[facility] HospitalNucleated erythrocytes [Presence] in Blood by Automated countOrdered By: Roxane Bills on 04-17-2022 Nucleated RBC Auto Ql (Bld)0.2 /100{WBC}0-0.5FAvita Health System Gal[facility] Hospital Platelet mean volume Auto (Bld) [Entitic vol]Ordered By: Roxane Bills on 04-17-2022 Platelet mean volume (Bld) [Entitic vol]7.6 fL6.3-10.7FAvita Health System Galion HospitalPlatelets Auto (Bld) [#/Vol]Ordered By: Roxane Bills on 61-14-7819Bmonppmvt (Bld) [#/Vol]273 10*3/qY251-376EdnhlgtvlMercy HealthProtein [Mass/volume] in Serum or PlasmaOrdered By: Roxane Bills on 37-90-3578Uwueqod [Mass/Vol]7.0 g/dL6.1-7.9Mercy HealthProtein [Mass/Vol]7.3 g/dL6.0-8.5FAvita Health System Galion HospitalRBC Auto (Bld) [#/Vol]Ordered By: Roxane Bills on 14-16-1349LGL (Bld) [#/Vol]4.02 10*6/uL3.60-5.00AC[facility] Healthcare Systemerum globulin measurement (mass/volume)Ordered By: Roxane Bills on 56-42-3028Cleghjmj (S) [Mass/Vol]3.9 g/dL2.2-3.9ACMC Healthcare Systemerum or plasma alanine aminotransferase measurement without P-5'-P (enzymatic activiOrdered By: Roxane Bills on 59-53-2017VYH No additional P-5'-P [Catalytic activity/Vol]22 U/F30-18PxrheblewACMC Healthcare Systemerum or plasma albumin/globulin mass ratioOrdered By: Roxane Bills on 04-17-2022 Albumin/Globulin [Mass ratio]0.8 {ratio}[facility] Albumin/Globulin [Mass ratio]0.9 {ratio}0.7-1.7FAv[facility] Serum or plasma alkaline phosphatase measurement (enzymatic activity/volume) Ordered By: Roxane Bills on 16-65-5330XMZ [Catalytic activity/Vol]121 U/L32-92 [facility] Healthcare Systemerum or plasma alpha 1 globulin measurement by electrophoresis (mass/volume)Ordered By: Roxane Bills on 24-30-2103Neicc 1 globulin Elph [Mass/Vol]0.3 g/dL0.0-0.4FChillicothe VA Medical Centererum or plasma alpha 2 globulin measurement by electrophoresis (mass/volume)Ordered By: Roxane Bills on 14-02-5027Vgxgt 2 globulin Elph [Mass/Vol]0.9 g/dL0.4-1.0AC[facility] Systemerum or plasma anion gap determinationOrdered By: Roxane Bills on 23-94-9350Mmehm gap [Moles/Vol]12.8 mmol/L6.0-15.0AC[facility] Healthcare Systemerum or plasma aspartate aminotransferase measurement (enzymatic activity/volume)Ordered By: Roxane Bills on 61-74-8918HTN [Catalytic activity/Vol] 23 U/Z58-18VivgyxoxcACMC Healthcare Systemerum or plasma beta globulin measurement by electrophoresis (mass/volume)Ordered By: Roxane Bills on 04-17-2022 Beta globulin Elph [Mass/Vol]1.4 g/dL0.7-1.3FAvita Health System Gal[facility] Hospital Serum or plasma calcium measurement (mass/volume)Ordered By: Roxane Bills on 65-75-0877Tpezdgs [Mass/Vol]9.1 mg/dL8.2-10.2FAvita Health System Gal[facility] Hospital Serum or plasma chloride measurement (moles/volume)Ordered By: Roxane Bills on 08-57-0156Ckhtgbob [Moles/Vol]98 mmol/I56-289DozwzzzciMercy Health Serum or plasma gamma globulin measurement by electrophoresis (mass/volume) Ordered By: Roxane Bills on 11-58-8663Ewaqe globulin Elph [Mass/Vol]1.3 g/dL0.4-1.8 [facility] Systemerum or plasma glucose measurement (mass/volume)Ordered By: Roxane Bills on 34-16-7632Uokxkfj [Mass/Vol]269 mg/dL 70-100Mercy HealthComment on above:ADA recommended reference rangeRandom Glucose Reference Range is dependent on time and content of last meal. Glucose of more than 200 mg/dL in a nonstressed, ambulatory subject supports the diagnosisof Diabetes Mellitus.Serum or plasma potassium measurement (moles/volume)Ordered By: Roxane Bills on 27-86-7681Uwwzvicuw [Moles/Vol]3.5 mmol/L3.5-5.1FChillicothe VA Medical Centererum or plasma sodium measurement (moles/volume)Ordered By: Roxane Bills on 63-65-1253Vinmmx [Moles/Vol]138 mmol/X444-355XthegfjlfACMC Healthcare Systemerum or plasma total bilirubin measurement (mass/volume)Ordered By: Roxane Bills on 04-17-2022 Bilirubin [Mass/Vol]0.3 mg/dL0.3-1.2FChillicothe VA Medical Centererum or plasma total carbon dioxide measurement (moles/volume)Ordered By: Roxane Bills on 61-94-2547YC2 [Moles/Vol]30.7 mmol/L22.0-30.0[facility] Serum or plasma urea nitrogen measurement (mass/volume)Ordered By: Roxane Bills on 62-69-5049Mqhr nitrogen [Mass/Vol]17 mg/dL01-03[facility] WBC Auto (Bld) [#/Vol]Ordered By: Roxane Bills on 55-07-7043SEJ (Bld) [#/Vol]10.8 10*3/uL3.8-11.6FAvita Health System Galion HospitalUrine culture routineOrdered By: Peri Tyson on 97-61-1549Yzrvhyuh identified Cx Nom (U)Strep. agalactiae Grp B Mercy HealthA1C HEMOGLOBINon 10-56-3525YxX7c (Bld) [Mass fraction]7.0 %[employer] Other Urinalysis - AUTOMATEDon 24-04-9885Uheancmmep (U) cloudyNpemiscot memorial health systems userfox Other Bilirubin Ql (U)NegativeShiny Ads Other Color (U)yellowNeurOptics userfox Other Glucose Ql (U)500NoNeurOptics userfox Other Hemoglobin Ql (U)NegativeNeurOptics userfox Other Ketones Ql (U)[facility] ClaytonNeurOptics userfox Other Leukocyte esterase Test strip Ql (U)smallNeurOptics userfox Other Nitrite Ql (U)[facility] ClaytonNeurOptics userfox Other pH (U)5.5 [pH][employer] Other Protein Ql (U)NegativeShiny Ads Other Specific gravity (U) [Rel density]1.010[place] user[employer] Other Urobilinogen (U) [Mass/Vol]0.2 mg/dLNeurOptics userfox Other Urinalysis - AUTOMATEDOriel Therapeutics Other Urine culture routineOrdered By: Peri Tyson on 62-37-6992Vhdmgftw identified Cx Nom (U)Strep. agalactiae Grp TriHealthUrine culture routineOrdered By: Peri Tyson on 38-73-3571Tvnwmjki identified Cx Nom (U)Strep. agalactiae Grp TriHealthDrugs identified in UrineOrdered By: Peri Tyson on 84-35-1426Ifuut identified Nom (U)[facility].Mercy HealthComment on above: TOXASSURE COMP DRUG ANALYSIS,UR= Test Result Flag UnitsDrug Present Alcohol, Ethyl [...] clinical consultation, please call . Performed at: [employer] [address] [id number] Director: Tomasa Alegria [facility], Phone: [phone] - AUTOMATEDMedisyn Technologies 82-39-7402Ravqsgaczg (U)clearNort userfox Other Bilirubin Ql (U)NegativeNort userfox Other Color (U)yellowNocarondelet health userfox Other Glucose Ql (U)1000Nort [employer] Other Hemoglobin Ql (U)NegativeFarmington userfox Other Ketones Ql (U)NegativeNort user[employer] Other Leukocyte esterase Test strip Ql (U)traceNocarondelet health userfox Other Nitrite Ql (U)NegativeNeurOptics userfox Other pH (U)7.0 [pH][place] [employer] Other Protein Ql (U)NegativeNeurOptics userfox Other Specific gravity (U) [Rel density]1.010Nocarondelet health userfox Other Urobilinogen (U) [Mass/Vol]0.2 mg/dLNeurOptics userfox Other Urinalysis - AUTOMATEDNoShiny Ads Other CT biopsyOrdered By: Roxane Bills on 10-23-2021 Transferrin [Mass/Vol]290 mg/dD808-276PdeiemtqaMercy HealthFerritin [Mass/volume] in Serum or PlasmaOrdered By: Roxane Bills on 43-90-1345Ikppksnu [Mass/Vol]76.6 ng/iX13-057.8Mercy HealthIron [Mass/volume] in Serum or PlasmaOrdered By: Roxane Bills on 95-66-7847Zehh [Mass/Vol]64 ug/dL 40-150Mercy HealthIron binding capacity [Mass/volume] in Serum or PlasmaOrdered By: Roxane Bills on 01-04-1064Vbki binding capacity [Mass/Vol]406 ug/cB875-688JydpxmxmaMercy HealthIron saturation [Mass Fraction] in Serum or PlasmaOrdered By: Roxane Bills on 52-56-3893Exjv saturation [Mass fraction]15.0 %20-50Mercy HealthA1C HEMOGLOBINon 75-06-8462GnG8s (Bld) [Mass fraction]7.2 %[employer] Other basic Metabolic PanelOrdered By: Laureen Moreno on 56-59-0090Bpsdwauf [Moles/Vol]100 mmol/S52-686QkniyjmxbMercy HealthGlucose [Mass/Vol]268 mg/yW33-335DlqhsxuypMercy HealthComment on above:ADA recommended reference range Random Glucose Reference Range is dependent on time and content of last meal. Glucose of more than 200 mg/dL in a nonstressed, ambulatory subject supports the diagnosis of Diabetes Mellitus.Sodium [Moles/Vol]139 mmol/B862-813VgesyitjbMercy HealthUrea nitrogen [Mass/Vol]18 mg/dL9-23Mercy HealthBasic Metabolic Panelon 76-38-9875Pqczfiw [Mass/Vol]9.8624126 mg/dLNormal8.2-10.2 mg/dLNocarondelet health userfox Other cO2 [Moles/Vol]29.09022293 mmol/UEmninn07.0-30.0 mmol/LNpemiscot memorial health systems userfox Other Creatinine [Mass/Vol]1.30593993 mg/dLHigh0.44-1.03 mg/dLNocarondelet health userfox Other potassium [Moles/Vol]4.70003513 mmol/LNormal3.5-5.1 mmol/LNpemiscot memorial health systems userfox Other basic Metabolic Jwwon67Qbrpc userfox Other creatinine and Glomerular filtration rate.predicted panel (S/P/Bld)Ordered By: Laureen Moreno on 11-96-1264Ddrathwnac [Mass/Vol]1.57 mg/dL0.44-1.03Mer[facility] HealthEstimated glomerular filtration rate (GFR) non- AmericanOrdered By: Laureen Moreno on 88-42-9796ISP/1.73 sq M.predicted among non-blacks MDRD (S/P/Bld) [Vol rate/Area]33 mL/MinMercy HealthHbA1c (Bld) [Mass fraction]on 43-93-7452S5R HEMOGLOBINNocarondelet health userfox Other No Panel InformationOrdered By: Laureen Moreno on 09-77-7775Lkpgrejfd GFR ()40 mL/MinMercy HealthComment on above:GFR estimated reference range: According to KDOQI guidelines, <60 ml/min/1.73m2 is sufficient todiagnose a patient with chronic kidney disease.Pharmacy Creatinine Clearance ([facility]N/[facility] Hospitalerum or plasma calcium measurement (mass/volume)Ordered By: Laureen Moreno on 35-65-8158Cnotrbh [Mass/Vol]9.6 mg/dL8.2-10.2FChillicothe VA Medical Centererum or plasma potassium measurement (moles/volume)Ordered By: Laureen Moreno on 80-57-8978Sjrgogeko [Moles/Vol]4.7 mmol/L3.5-5.1 [facility] Systemerum or plasma total carbon dioxide measurement (moles/volume)Ordered By: Laureen Moreno on 31-44-6191AD1 [Moles/Vol]29.0 mmol/L22.0-30.0Mercy HealthActivated partial thromboplastin time (aPTT) in platelet poor plasma by coagulation a Ordered By: Roxane Bills on 67-55-8077kQJD Coag (PPP) [Time]33.0 s25.1-36.5 Mercy HealthBasophils Auto (Bld) [#/Vol]Ordered By: Roxane Bills on 14-47-9236Qdummwytt (Bld) [#/Vol]0.1 10*3/uL0.0-0.2FAvita Health System Galion HospitalBasophils/100 WBC Auto (Bld)Ordered By: Roxane Bills on 09-26-2021 Basophils/100 WBC (Bld)0.5 %.Mercy HealthBlood hemoglobin measurement (mass/volume)Ordered By: Roxane Bills on 85-62-4719Fvcarbwfok (Bld) [Mass/Vol]11.4 g/dL11.8-15.4FAvita Health System Galion HospitalBlood leukocytes automated count (number/volume)Ordered By: Roxane Bills on 28-83-0500MXT (Bld) [#/Vol]11.1 10*3/uL4.5-11.0Mercy HealthEosinophils Auto (Bld) [#/Vol]Ordered By: Roxane Bills on 92-10-6883Pnpqulnukho (Bld) [#/Vol]0.8 10*3/uL0.0-0.45Mercy HealthEosinophils/100 WBC Auto (Bld) Ordered By: Roxane Bills on 23-36-0518Opydsvlhurh/100 WBC (Bld)7.7 %.Mercy HealthErythrocyte distribution width Auto (RBC) [Ratio]Ordered By: Roxane Bills on 09-92-3028Xncnmbjgavi distribution width (RBC) [Ratio]14.5 % 11.9-15.3FAvita Health System Galion HospitalHematocrit Auto (Bld) [Volume fraction]Ordered By: Roxane Bills on 06-94-0641Decjtppsgi (Bld) [Volume fraction] 35.3 %34.0-46.4FAvita Health System Galion HospitalLaboratory - CoagulationOrdered By: Roxane Bills on 74-55-5068BH Coag (PPP) [Time]13.9 s9.0-12.9Mercy HealthLaboratory - Hematology and Cell countsOrdered By: Roxane Bills on 31-03-2078Tmmbjcexc RBC/100 WBC (Bld) [Ratio]0.1 %0-0.5FAvita Health System Galion HospitalLymphocytes Auto (Bld) [#/Vol]Ordered By: Roxane Bills on 09-26-2021 Lymphocytes (Bld) [#/Vol]2.4 10*3/uL1.00-4.8[facility] Lymphocytes/100 WBC Auto (Bld)Ordered By: Roxane Bills on 46-81-8243Dkvwawsapgo/100 WBC (Bld)21.6 %.[facility] Auto (RBC) [Entitic mass] Ordered By: Roxane Bills on 20-20-2077LXH (RBC) [Entitic mass]28.3 pg24.7-34.3 [facility] HospitalHC Auto (RBC) [Mass/Vol]Ordered By: Roxane Bills on 85-83-5587LLPO (RBC) [Mass/Vol]32.1 g/dL32.0-35.0Mercy HealthMCV Auto (RBC) [Entitic vol]Ordered By: Roxane Bills on 88-99-3057LDJ (RBC) [Entitic vol]88.0 iE55-152HjlmofatoMercy HealthMonocytes Auto (Bld) [#/Vol]Ordered By: Roxane Bills on 14-74-4724Dhyrjheub (Bld) [#/Vol]0.9 10*3/uL 0.0-0.8Mercy HealthMonocytes/100 WBC Auto (Bld)Ordered By: Roxane Bills on 34-33-8444Rrtqeuonx/100 WBC (Bld)7.8 %.Mercy HealthNeutrophils Auto (Bld) [#/Vol]Ordered By: Roxane Bills on 09-26-2021 Neutrophils (Bld) [#/Vol]6.9 10*3/uL1.8-7.7FAvita Health System [facility] Hospital Neutrophils/100 WBC Auto (Bld)Ordered By: Roxane Bills on 05-22-2824Wthzxnfhlwp/100 WBC (Bld)62.4 %.Mercy HealthPlatelet mean volume Auto (Bld) [Entitic vol]Ordered By: Roxane Bills on 00-46-9287Tvfqowdn mean volume (Bld) [Entitic vol]7.5 fL6.3-10.7FAvita Health System Galion HospitalPlatelet poor plasma international normalized ratio (INR) by coagulation assay (relatOrdered By: Roxane Bills on 77-98-8320WUZ Coag (PPP) [Relative time]1.2 {INR}Mercy HealthComment on above:INR Therapeutic Range A) Pre- and Peroperative OAT started two weeks before surgery. NOT HIP SURGERY: 1.5 - 2.5 HIP SURGERY: 2 - 3 B) Primary and secondary prevention of venous THROMBOSIS: 2 - 3 C) Active venous thrombosis, pulmonary embolism and prevention of recurrent venous thrombosis: 2 - 3 D) Prevention of arterial thromboembolism including patients with mechanical heart valves: 3 - 4.5Platelets Auto (Bld) [#/Vol]Ordered By: Roxane Bills on 24-08-2999Efkjaxstb (Bld) [#/Vol]302 10*3/uL 150-450Mercy HealthRBC Auto (Bld) [#/Vol]Ordered By: Roxane Bills on 39-27-6757OFR (Bld) [#/Vol]4.01 10*6/uL3.60-5.00Mercy HealthAlbumin/Protein.total in 24 hour Urine by ElectrophoresisOrdered By: Roxane Bills on 38-13-0510Mfuctkt Elph (24H U) [Mass fraction]27.8 %.Mercy HealthAlbumin Elph (24H U) [Mass fraction]Albumin/Protein.total in 24 hour Urine by Electrophoresis.Mercy HealthCreatinine [Mass/volume] in UrineOrdered By: Roxane Bills on 49-04-5673Stsbuborms (U) [Mass/Vol]35.9 mg/dLMercy HealthComment on above:No reference range establishedCreatinine (U) [Mass/Vol]Creatinine [Mass/volume] in UrineMercy HealthComhenry ford west [facility] on above:No reference range establishedGamma globulin/Protein.total in 24 hour Urine by Electrophoresis Ordered By: Roxane Bills on 24-43-2580Kgzff globulin Elph (24H U) [Mass fraction] 24.3 %.Mercy HealthGamma globulin Elph (24H U) [Mass fraction]Gamma globulin/Protein.total in 24 hour Urine by Electrophoresis. Mercy HealthImmunofixation for UrineOrdered By: Roxane Bills on 67-22-7451Yydixldvjdqhfp Immunofixation (U) [Interp]See comment.Mer[facility] HealthComhenry ford [facility] on above:No monoclonality detected. Performed at: [facility] [id number] [employer] Referral Clerk: Jhoan Rich PhD, Phone: [phone] monoclonality detected.Performed at: [employer] [address] [id number] Director: Jhoan Rich PhD, Phone: [phone] Immunofixation (U) [Interp]Immunofixation for Urine.Mercy HealthComment on above:No monoclonality detected.Performed at: [employer] [id number] Director: Jhoan Rich PhD, Phone: [phone] light chains.kappa.free [Mass/volume] in Serum Ordered By: Roxane Bills on 33-63-4997Qmpkyhzbppqcof light chains.kappa.free (S) [Mass/Vol]73.6 mg/L3.3-19.4FAvita Health System Galion HospitalImmunoglobulin light chains.kappa.free/Immunoglobulin light chains.lambda.free [MassOrdered By: Roxane Bills on 53-19-8184Opncyqexzioxnc light chains.kappa.free/Immunoglobulin light chains.lambda.free (S) [Mass ratio]2.520.26-1.65Mercy HealthComment on above:Performed at: [address] [id number] [employer] Referral Clerk: Jhoan Rich PhD, Phone: [phone] light chains.lambda.free [Mass/volume] in Serum or PlasmaOrdered By: Roxane Bills on 74-88-9991Elmwqjcxvgscfj light chains.lambda.free [Mass/Vol]29.2 mg/L5.7-26.3 [facility] HealthNo Panel InformationOrdered By: Roxane Bills on 82-93-5738Zqeuu Random Prot Electrophor NoteSee comment.Mercy HealthComment on above:Protein electrophoresis scan will follow via computer, mail, or green building engineer delivery. Protein electrophoresis scan will follow via computer, mail, or green building engineer delivery. Performed at: [address] [id number] [employer] Referral Clerk: Jhoan Rich PhD, Phone: [phone] --- 08/20/21 4855 --- Please Note: previously reported as: Protein electrophoresis scan will follow via computer, mail, or green building engineer delivery.Protein electrophoresis scan will follow via computer,mail, or green building engineer delivery. Protein electrophoresis scan will follow via computer,mail, or green building engineer delivery.Performed at: [address] [id number] Director: Jhoan Rich PhD, Phone: [phone] --- ---Please Note: previously reported as: Protein electrophoresis scan will follow via computer,mail, or green building engineer delivery.See comment.[facility]cy HealthProtein [Mass/volume] in UrineOrdered By: Roxane Bills on 33-44-8453Izxqfdc (U) [Mass/Vol]4.8 mg/dLNot Estab.[facility] HealthProtein (U) [Mass/Vol]Protein [Mass/volume] in UrineNot Estab.[facility]cy HealthProtein.monoclonal/Protein.total in 24 hour Urine by ElectrophoresisOrdered By: Roxane Bills on 08-16-2021 Protein.monoclonal Elph (24H U) [Mass fraction]Not observed %Not Observed Mercy HealthProtein.monoclonal Elph (24H U) [Mass fraction] Protein.monoclonal/Protein.total in 24 hour Urine by ElectrophoresisNot Observed [facility] Systemerum or plasma oqzm-2-vcxvekdfbwojr measurement (mass/volume)Ordered By: Roxane Bills on 39-70-1604Vebi-2-Microglobulin [Mass/Vol]4.9 ug/mLHigh0.6-2.4FAvita Health System Galion HospitalComment on above: Siemens Immulite 2000 Immunochemiluminometric assay (ICMA) Values obtained with different assay methods or kits cannot be used interchangeably. Results cannot be interpreted as absolute evidence of the presence or absence of malignant disease. Performed at: [employer] [address] [id number] [employer] Referral Clerk: Betty Bah MD, Phone: [phone] Immulite 2000 Immunochemiluminometric assay (ICMA)Values obtained with different assay methods or kits cannotbe used interchangeably. Results cannot be interpreted asabsolute evidence of the presence or absence of malignantdisease.Performed at: [employer] [address] [id number] Director: Betty Bah MD, Phone: [phone]-9-Uvgfutvrjgero [Mass/Vol]Serum or plasma nekz-6-igrkyxwcmrfvr measurement (mass/volume)High0.6-2.4FAvita Health System Galion HospitalComment on above:Siemens Immulite 2000 Immunochemiluminometric assay (ICMA)Values obtained with different assay methods or kits cannotbe used interchangeably. Results cannot be interpreted asabsolute evidence of the p resence or absence of malignantdisease.Performed at: [facility] [address] [id number] Director: Betty Bah MD, Phone: [phone] alpha 1 globulin/total protein by electrophoresisOrdered By: Roxane Bills on [id number] 1 globulin Elph (U) [Mass fraction]3.9 %.[facility] HealthAlpha 1 globulin Elph (U) [Mass fraction]Urine alpha 1 globulin/total protein by electrophoresis.[facility] HealthUrine alpha 2 globulin/total protein ratio by electrophoresisOrdered By: Roxane Bills on 61-38-6791Kqsin 2 globulin Elph (U) [Mass fraction]11.3 %.[facility]ulin Elph (U) [Mass fraction]Urine alpha 2 globulin/total protein ratio by electrophoresis.[facility] HealthUrine beta globulin measurement by electrophoresis (mass/volume)Ordered By: Roxane Bills on 93-02-1931Lgxx globulin Elph (U) [Mass/Vol]32.8 %.[facility] HealthBeta globulin Elph (U) [Mass/Vol]Urine beta globulin measurement by electrophoresis (mass/volume).[facility] A1C HEMOGLOBINon 83-13-5916BlZ0k (Bld) [Mass fraction]6.7 %[employer] [facility] Podio Other HbA1c (Bld) [Mass fraction]on 12-69-3203H5M HEMOGLOBIN [facility] Podio Other Thyroid Stim Hormone w/Rflxon 64-23-2863Oatrbbg Stim Hormone w/Rflx3.310.45-5.33[facility] Other Vital Signs Date TimeVital SignValuePerforming PizizxnggJkxdstdi25-45-0096 11:29-0400Body innxcufmdwe63.7 [degF]Peri SupplyFrame DO Work Phone: 1(488)101-[facility]2025 11:29-0400 Body tjgkna69.42 kgGloria SupplyFrame DO Work Phone: [facility]2025 11:29-0400 Diastolic blood sqycqmaf99 mm[Hg]Peri Tyson DO Work Phone: [facility]2025 11:29-0400 Heart rate69 /minGloria SupplyFrame DO Work Phone: [facility]2025 11:29-0400 Respiratory rate16 /minGloria SupplyFrame DO Work Phone: 1(567)[address]2025 11:29-0400 SaO2% (BldA) [Mass fraction]100 %Peri Tyson DO Work Phone: 1(804)[address] [place], [place] 1784410-08-2025 11:29-0400 Systolic blood minskzma883 mm[Hg]Peri Tyson DO Work Phone: 1(998)[address] [place], [place] 1784409-20-2025 11:12-0400 Body fydqncpevlt04.2 [degF]Peri Tyson DO Work Phone: 1(089)[address] [place], [place] 1784409-20-2025 11:12-0400 Diastolic blood mm[Hg]Peri Tyson DO Work Phone: 1(380)[address] [place], [place] 1784409-20-2025 11:12-0400 Heart rate54 /minGloria Tyson DO Work Phone: 1(744)[address] [place], [place] 1784409-20-2025 11:12-0400 Inhaled oxygen flow rate3 L/minGloria Tyson DO Work Phone: 1(102)[address] [place], [place] 1784409-20-2025 11:12-0400 Respiratory rate18 /minGloria Tyson DO Work Phone: 1(161)[address] [place], [place] 1784409-20-2025 11:12-0400 SaO2% (BldA) [Mass fraction]98 %Peri Tyson DO Work Phone: 1(024)[address] [place], [place] 1784409-20-2025 11:12-0400 Systolic blood mm[Hg]Peri Tyson DO Work Phone: 1(224)[address] [place], [place] 1784409-20-2025 05:28-0400 Body nkbsyd817.3 kgGloria Tyson DO Work Phone: 1(339)[address] [place], [place] 1784409-17-2025 13:47-0400 Body yulffu037.4 cmGloria Tyson DO Work Phone: 1(212)[address] [place], [place] 1784409-16-2025 23:50-0400 Body ijinyk099.4 cmGloria Tyson DO Work Phone: 1(278)[address] [place], [place] 1784409-16-2025 23:50-0400 Body xeipkexstqe50.9 [degF]Peri Tyson DO Work Phone: 1(241)[address] [place], [place] 1784409-16-2025 23:50-0400 Body .9 kgGloria Tyson DO Work Phone: 1(538)[address] [place], [place] 1784409-16-2025 23:50-0400 Diastolic blood zqilqlkf76 mm[Hg]Peri Tyson DO Work Phone: 1(959)[address] [place], [place] 1784409-16-2025 23:50-0400 Heart rate86 /minGloria Tyson DO Work Phone: 1(363)[address] [place], [place] 1784409-16-2025 23:50-0400 Respiratory rate20 /minGloria Tyson DO Work Phone: 1(016)[address] [place], [place] 1784409-16-2025 23:50-0400 SaO2% (BldA) [Mass fraction]96 %Peri Tyson DO Work Phone: 1(202)[address] [place], [place] 1784409-16-2025 23:50-0400 Systolic blood igwinuap425 mm[Hg]Peri Tyson DO Work Phone: 1(213)[address] [place], [place] 1784409-16-2025 22:53-0400 Inhaled oxygen flow rate5 L/minGloria Tyson DO Work Phone: 1(434)[address] [place], [place] 1784409-15-2025 13:15-0400 Body gjombg358.4 cmGloria Tyson DO Work Phone: 1(181)[address] [place], [place] 1784409-15-2025 13:15-0400 Body pgraacptytr874 [degF]Peri Tyson DO Work Phone: 1(213)[address] [place], [place] 1784409-15-2025 13:15-0400 Body rvwsik437.4 kgGloria Tyson DO Work Phone: 1(625)[address] [place], [place] 1784409-15-2025 13:15-0400 Diastolic blood qgelwrye38 mm[Hg]Peri Tyson DO Work Phone: 1(800)[address] [place], [place] 1784409-15-2025 13:15-0400 Heart rate66 /minGloria Tyson DO Work Phone: 1(009)[address] [place], [place] 1784409-15-2025 13:15-0400 Inhaled oxygen flow rate4 L/minGloria Tyson DO Work Phone: 1(562)[address] [place], [place] 1784409-15-2025 13:15-0400 Respiratory rate16 /minGloria Tyson DO Work Phone: 1(654)[address] [place], [place] 1784409-15-2025 13:15-0400 SaO2% (BldA) [Mass fraction]94 %Peri Tyson DO Work Phone: 1(515)[address] [place], [place] 1784409-15-2025 13:15-0400 Systolic blood kxkjwotf157 mm[Hg]Peri Tyson DO Work Phone: 1(994)[address] [place], [place] 1784409-10-2025 09:11-0400 Body .2 [degF]Peri Tyson DO Work Phone: 1(253)[address] [place], [place] 1784409-10-2025 09:11-0400 Diastolic blood xpkmbnsi51 mm[Hg]Peri Tyson DO Work Phone: 1(275)[address] [place], [place] 1784409-10-2025 09:11-0400 Heart rate74 /minGloria Tyson DO Work Phone: 1(582)[address] [place], [place] 1784409-10-2025 09:11-0400 Inhaled oxygen flow rate3 L/minGloria Tyson DO Work Phone: 1(659)[address] [place], [place] 1784409-10-2025 09:11-0400 Respiratory rate20 /minGloria Tyson DO Work Phone: 1(534)[address] [place], [place] 1784409-10-2025 09:11-0400 SaO2% (BldA) [Mass fraction]99 %Peri Tyson DO Work Phone: 1(039)[address] [place], [place] 1784409-10-2025 09:11-0400 Systolic blood srrfojtw731 mm[Hg]Peri Tyson DO Work Phone: 1(623)[address] [place], [place] 1784409-10-2025 08:42-0400 Body xsgmsgegjvf23.2 [degF]Peri Tyson DO Work Phone: 1(450)[address] [place], [place] 1784409-10-2025 08:42-0400 Body bpiddx844.6 kgGloria Tyson DO Work Phone: 1(907)[address] [place], [place] 1784409-10-2025 08:42-0400 Diastolic blood iikcofyo09 mm[Hg]Peri Tyson DO Work Phone: 1(527)[address] [place], [place] 1784409-10-2025 08:42-0400 Heart rate74 /minGloria Tyson DO Work Phone: 1(389)[address] [place], [place] 1784409-10-2025 08:42-0400 Respiratory rate16 /minGloria Tyson DO Work Phone: 1(955)[address] [place], [place] 1784409-10-2025 08:42-0400 SaO2% (BldA) [Mass fraction]99 %Peri Tyson DO Work Phone: 1(591)[address] [place], [place] 1784409-10-2025 08:42-0400 Systolic blood qknldkut508 mm[Hg]Peri Tyson DO Work Phone: 1(695)[address] [place], [place] 1784409-08-2025 08:48-0400 Body pkwmri309.4 cmMack Tsai DPM Work Phone: [facility] CareUyeculccub31-98-5190 08:48-0400Body mass index (BMI) [Ratio]45.7 kg/l3ZvvivlnhMack Tsai DPM Work Phone: [facility] CareSemzmkxgng29-43-7998 08:48-0400Body nqrgeu990.14 kgMack Tsai DPM Work Phone: [facility] CareIvpltlolua31-31-5947 08:48-0400Respiratory rate16 /minNicholmarilee Tsai DPM Work Phone: [facility] CareGgdcpydpau81-27-9893 10:16-0400Inhaled oxygen flow rate3 L/minGloria Tyson DO Work Phone: 1(582)[address] [place], [place] 1784408-26-2025 10:14-0400 Body uzmvqidohln10.7 [degF]Peri Tyson DO Work Phone: 1(224)[address] [place], [place] 1784408-26-2025 10:14-0400 Body yyujjg577.91 kgGloria Tyson DO Work Phone: 1(882)[address] [place], [place] 1784408-26-2025 10:14-0400 Diastolic blood mwjyuptd98 mm[Hg]Peri Tyson DO Work Phone: 1(581)[address] [place], [place] 1784408-26-2025 10:14-0400 Heart rate83 /minGloria Tyson DO Work Phone: 1(360)[address] [place], [place] 1784408-26-2025 10:14-0400 Respiratory rate20 /minGloria Tyson DO Work Phone: 1(185)[address] [place], [place] 1784408-26-2025 10:14-0400 SaO2% (BldA) [Mass fraction]99 %Peri Tyson DO Work Phone: 1(058)[address] [place], [place] 1784408-26-2025 10:14-0400 Systolic blood zcrcwawt451 mm[Hg]Peri Tyson DO Work Phone: 1(049)[facility] [place], [place] 4353508-12-2025 10:05-0400 Inhaled oxygen flow rate3 L/minGloria Tyson DO Work Phone: 1(703)[address] [place], [place] 1784408-12-2025 10:03-0400 Body auiukcttcxy23.6 [degF]Peri Tyson DO Work Phone: 1(644)[address] [place], [place] 1784408-12-2025 10:03-0400 Body hcwimgufxzn32.4 [degF]Peri Tyson DO Work Phone: 1(660)[address] [place], [place] 1784408-12-2025 10:03-0400 Body .95 kgGloria Tyson DO Work Phone: 1(756)[address] [place], [place] 1784408-12-2025 10:03-0400 Diastolic blood veabeoxh58 mm[Hg]Peri Tyson DO Work Phone: 1(004)[address] [place], [place] 1784408-12-2025 10:03-0400 Diastolic blood ogksbacj94 mm[Hg]Peri Tyson DO Work Phone: 1(101)[address] [place], [place] 1784408-12-2025 10:03-0400 Heart rate82 /minGloria Tyson DO Work Phone: 1(889)[address] [place], [place] 1784408-12-2025 10:03-0400 Heart rate72 /minGloria Tyson DO Work Phone: 1(605)[address] [place], [place] 1784408-12-2025 10:03-0400 Respiratory rate18 /minGloria Tyson DO Work Phone: 1(119)[address] [place], [place] 1784408-12-2025 10:03-0400 SaO2% (BldA) [Mass fraction]95 %Peri Tyson DO Work Phone: 1(782)[address] [place], [place] 1784408-12-2025 10:03-0400 SaO2% (BldA) [Mass fraction]98 %Peri Tyson DO Work Phone: 1(460)[address] [place], [place] 1784408-12-2025 10:03-0400 Systolic blood ruzttwin851 mm[Hg]Peri Tyson DO Work Phone: 1(106)[address] [place], [place] 1784408-12-2025 10:03-0400 Systolic blood mm[Hg]Peri Tyson DO Work Phone: 1(269)[address] [place], [place] 1784408-04-2025 10:17-0400 Body jethmk703.94 cmGloria Tyson DO Work Phone: 1(884)[address] [place], [place] 1784408-04-2025 09:04-0400 Body wtluyw559.4 cmAhmad Jeff MD Work Phone: 1(304)[address] [place], [place] 6387008-04-2025 09:04-0400Body mass index (BMI) [Ratio]45.7 kg/d3ArzbtJeannie Aguilar MD Work Phone: 1(987)[address] [place], [place] 6387008-04-2025 09:04-0400Body rxfobp389.14 kgJeannie Aguilar MD Work Phone: 1(208)[address] [place], [place] 6387008-04-2025 09:04-0400Diastolic blood yymdqkqi11 mm[Hg]Jeannie Aguilar MD Work Phone: 1(603)[address] [place], [place] 6387008-04-2025 09:04-0400Heart rate96 /min Jeannie Aguilar MD Work Phone: 1(091)[address] [place], [place] 6387008-04-2025 09:04-0400Respiratory rate18 /minJeannie Aguilar MD Work Phone: 1(602)[address] [place], [place] 6387008-04-2025 09:04-2968OvU7% (BldA) [Mass fraction]94 %Jeannie Aguilar MD Work Phone: 1(463)[address] [place], [place] 6387008-04-2025 09:04-0400Systolic blood amdqmqwp946 mm[Hg]Jeannie Aguilar MD Work Phone: 1(481)517-[address] [place], [place] [address]Ltgxfdokdh05-23-3761 14:10-0400Body temperature 97.8 [degF]Peri Tyson DO Work Phone: 1(485)036-[facility]07-17-2025 14:10-0400 Body .32 kgGloria Tyson DO Work Phone: 1(605)058-[facility]07-17-2025 14:10-0400 Diastolic blood bmlzyywz74 mm[Hg]Peri Tyson DO Work Phone: 1(739)703-[facility]07-17-2025 14:10-0400 Heart rate77 /minDominikoria Tyosn DO Work Phone: [facility]07-17-2025 14:10-0400 Respiratory rate16 /minGloria Tyson DO Work Phone: 1(271)[address] [place], [place] 1784407-17-2025 14:10-0400 SaO2% (BldA) [Mass fraction]95 %Peri Tyson DO Work Phone: 1(136)[address] [place], [place] 1784407-17-2025 14:10-0400 Systolic blood hauypcye826 mm[Hg]Peri Tyson DO Work Phone: 1(937)[address] [place], [place] 1784406-26-2025 11:17-0400 Body twvirhqifis41.9 [degF]Peri Tyson DO Work Phone: 1(884)[address] [place], [place] 1784406-26-2025 11:17-0400 Body ojyxly086.87 kgGloria Tyson DO Work Phone: 1(909)[address] [place], [place] 1784406-26-2025 11:17-0400 Diastolic blood wrduwhqx88 mm[Hg]Peri Tyson DO Work Phone: 1(036)[address] [place], [place] 1784406-26-2025 11:17-0400 Heart rate60 /minGloria Tyson DO Work Phone: 1(590)[address] [place], [place] 1784406-26-2025 11:17-0400 Respiratory rate16 /minGloria Tyson DO Work Phone: 1(781)[address] [place], [place] 1784406-26-2025 11:17-0400 SaO2% (BldA) [Mass fraction]9 %Peri Tyson DO Work Phone: 1(124)[address] [place], [place] 1784406-26-2025 11:17-0400 Systolic blood fqkvpuox952 mm[Hg]Peri Tyson DO Work Phone: 1(381)[address] [place], [place] 1784406-20-2025 09:57-0400 Body kgtucw216.6 cmMack Tsai DPM Work Phone: [facility] CareQyafsvrpol75-21-9005 09:57-0400Body mass index (BMI) [Ratio]38.79 kg/g6PjckkgpyMack Tsai DPM Work Phone: [facility] CareFqxmdlhnfa47-85-2686 09:57-0400Body cmmizl258.51 kgMack Tsai DPM Work Phone: [facility] CareQnyevtlqtv14-44-1454 09:57-0400Respiratory rate16 /minMack Tsai DPM Work Phone: [facility] CareKnwwgbukkf99-72-8968 10:48-0400Diastolic blood vyqryqmd49 mm[Hg]Peri Tyson DO Work Phone: 1(580)[address] [place], [place] 1784406-09-2025 10:48-0400 Heart rate78 /minGloria Tyson DO Work Phone: 1(035)[address] [place], [place] 1784406-09-2025 10:48-0400 Respiratory rate16 /minGloria Tyson DO Work Phone: 1(106)[address] [place], [place] 1784406-09-2025 10:48-0400 SaO2% (BldA) [Mass fraction]95 %Peri Tyson DO Work Phone: 1(842)[address] [place], [place] 1784406-09-2025 10:48-0400 Systolic blood mm[Hg]Peri Tyson DO Work Phone: 1(914)[address] [place], [place] 1784406-09-2025 09:18-0400 Body tcyuop907.4 cmGloria Tyson DO Work Phone: 1(026)[address] [place], [place] 1784406-09-2025 09:18-0400 Body .23 kgGloria Tyson DO Work Phone: 1(052)[address] [place], [place] 1784405-21-2025 11:17-0400 Body olfbkl526.94 cmGloria Tyson DO Work Phone: 1(617)[address] [place], [place] 1784405-21-2025 11:17-0400 Body mass index (BMI) [Ratio]42.9 kg/r2Nasmsi Tyson DO Work Phone: 1(731)[address] [place], [place] 1784405-21-2025 11:17-0400 Body zanwvxushrp02.9 [degF]Peri Marbella DO Work Phone: 1(845)[address] [place], [place] 1784405-21-2025 11:17-0400 Body qbeheg593.96 kgGloria Tyson DO Work Phone: 1(124)[address] [place], [place] 1784405-21-2025 11:17-0400 Diastolic blood mm[Hg]Peri Marbella DO Work Phone: 1(505)[address] [place], [place] 1784405-21-2025 11:17-0400 Heart rate73 /minGloria Tyson DO Work Phone: 1(519)[address] [place], [place] 1784405-21-2025 11:17-0400 Respiratory rate18 /minGloria Tyson DO Work Phone: 1(940)[address] [place], [place] 1784405-21-2025 11:17-0400 SaO2% (BldA) [Mass fraction]95 %Peri Tyson DO Work Phone: 1(426)[address] [place], [place] 1784405-21-2025 11:17-0400 Systolic blood gihkbmli266 mm[Hg]Peri Marbella DO Work Phone: 1(646)[address] [place], [place] 1784405-15-2025 13:25-0400 Body cjillk289.6 cmLeanne Radha DO Work Phone: 1(002)[address] [place], [place] 5543605-15-2025 13:25-0400Body mass index (BMI) [Ratio]38.79 kg/t2Tntqfc Radha DO Work Phone: 1(253)[address] [place], [place] 5543605-15-2025 13:25-0400Body omgxoe147.51 kgLeanne Radha DO Work Phone: 1(569)[address] [place], [place] 5543605-15-2025 13:25-0400Heart rate75 /min Svetlana Radha DO Work Phone: 1(684)[address] [place], [place] 5543605-15-2025 13:25-9919SgE9% (BldA) [Mass fraction]98 %Svetlana Radha DO Work Phone: 1(427)[address] [place], [place] 5543605-12-2025 11:37-0400Body yxawdp150.4 Leila Aguilar MD Work Phone: 1(799)[address]05-12-2025 11:37-0400Body mass index (BMI) [Ratio]44.72 kg/z0AgevoJeannie Aguilar MD Work Phone: 1(263)[address]05-12-2025 11:37-0400Body vwxkun019.87 kgJeannie Aguilar MD Work Phone: 1(783)[facility] [place], [place] [address]Bsenxmhkfo76-90-5020 11:37-0400Diastolic blood azvirwcv83 mm[Hg]Jeannie Aguilar MD Work Phone: 1(379)[address] [place], [place] [address]Ddgyxpwjbc46-94-9869 11:37-0400Heart rate71 /min Jeannie Aguilar MD Work Phone: 1(193)[address] [place], [place] 6387005-12-2025 11:37-0400Respiratory rate16 /minJeannie Aguilar MD Work Phone: 1(531)[facility] [place], [place] [address]Tdcjlpbphq92-58-6411 11:37-4077UfH2% (BldA) [Mass fraction]95 %Jeannie Aguilar MD Work Phone: 1(875)[address]05-12-2025 11:37-0400Systolic blood obkgnbvf240 mm[Hg]Jeannie Aguilar MD Work Phone: 1(354)[address]04-28-2025 08:27-0400Body jugzpu008.94 cmPeri Marbella HECK Work Phone: 1(871)[address]04-28-2025 08:27-0400 Body mass index (BMI) [Ratio]43.4 kg/m0Odbkpp Tyson DO Work Phone: 1(665)[address]04-28-2025 08:27-0400 Body dnjuud568.43 kgPeri Tyson DO Work Phone: 1(289)[address]04-28-2025 08:27-0400 Diastolic blood kstktpax41 mm[Hg]Peri Tyson DO Work Phone: 1(403)[address] [place], [place] 4353504-28-2025 08:27-0400 Heart rate79 /minGloria Tyson DO Work Phone: 1(963)[address] [place], [place] 1784404-28-2025 08:27-0400 Respiratory rate18 /minGloria Tyson DO Work Phone: 1(798)[address] [place], [place] 1784404-28-2025 08:27-0400 SaO2% (BldA) [Mass fraction]97 %Peri Marbella DO Work Phone: 1(851)[address]04-28-2025 08:27-0400 Systolic blood mjmijitv242 mm[Hg]Peri Tyson DO Work Phone: 1(852)[address] [place], [place] 1784402-12-2025 10:41-0500 Body xmavsk325.4 Leila Aguilar MD Work Phone: [facility] CareGpjkhtpklb54-43-0979 10:41-0500Body mass index (BMI) [Ratio]44.33 kg/i8HxjupJeannie Aguilar MD Work Phone: [facility] CarePugohfzjmv72-63-0833 10:41-0500Body pqkuks328.97 kgJeannie Aguilar MD Work Phone: [facility] CareZrsdbazmwp81-05-2384 10:41-0500Diastolic blood slbitdcz48 mm[Hg]Jeannie Aguilar MD Work Phone: [facility] CareZncuvcyxng34-31-1164 10:41-0500Heart rate97 /min Jeannie Aguilar MD Work Phone: [facility] CareAugpdjrvox11-78-1827 10:41-0500Respiratory rate18 /minJeannie Aguilar MD Work Phone: [facility] CareUsznhrykhq39-00-7937 10:41-2342DvS5% (BldA) [Mass fraction]94 %Jeannie Aguilar MD Work Phone: [facility] CareZqknzlwgam51-90-1996 10:41-0500Systolic blood nwfxwvay294 mm[Hg]Jeannie Aguilar MD Work Phone: [facility] CareGuzxrfitzo50-45-8622 08:28-0500Body yijgwe821.4 cmMack Bigg DPM Work Phone: [facility] CareYvngznofip18-70-0168 08:28-0500Body mass index (BMI) [Ratio]48.63 kg/w3KmbhainbMack Tsai DPM Work Phone: [facility] CareOymfvzggmm22-02-0920 08:28-0500Body .95 kgMack Tsai DPM Work Phone: [facility] CareJhtnpgbilk96-71-9863 08:28-0500Respiratory rate18 /minMack Tsai DPM Work Phone: [facility] CareSyrmpkwfmv02-99-8705 11:26-0500Body hulxbl740.94 cmChristopher Germain DO Work Phone: 1(988)381-[address] [place], [place] 3957211-25-2024 11:26-0500 Body mass index (BMI) [Ratio]46.8 kg/o3Gvsbblcfmfu Germain DO Work Phone: 1(624)241-[address] [place], [place] 3957211-25-2024 11:26-0500 Body ubejdy609.49 kgChristopher Germain DO Work Phone: 1(432)522-[address] [place], [place] 3957211-25-2024 11:26-0500 Diastolic blood dxhneria12 mm[Hg]Christopher Germain DO Work Phone: 1(124)592-[address] [place], [place] 3957211-25-2024 11:26-0500 Heart rate84 /minChristopher Germain DO Work Phone: 1(749)575-[address] [place], [place] 3957211-25-2024 11:26-0500 Respiratory rate18 /minChristopher Germain DO Work Phone: 1(557)376-[address] [place], [place] 3957211-25-2024 11:26-0500 SaO2% (BldA) [Mass fraction]95 %Christopher Germain DO Work Phone: 1(675)914-[address] [place], [place] 3957211-25-2024 11:26-0500 Systolic blood mwijqttf168 mm[Hg]Brenden Gorves DO Work Phone: [facility]11-20-2024 13:25-0500 Body vawusc193.94 cmGloria Marbella DO Work Phone: 1(742)[address] [place], [place] 1784411-20-2024 13:25-0500 Body mass index (BMI) [Ratio]46.3 kg/h9Vgjpdt Tyson DO Work Phone: 1(920)[address] [place], [place] 1784411-20-2024 13:25-0500 Body fxphnychuyy31.4 [degF]Peri Marbella DO Work Phone: 1(757)[address] [place], [place] 1784411-20-2024 13:25-0500 Body eylqjj206.13 kgGloria Marbella DO Work Phone: 1(548)[address] [place], [place] 1784411-20-2024 13:25-0500 Diastolic blood xufwpuyf86 mm[Hg]Peri Tyson DO Work Phone: 1(538)[address] [place], [place] 1784411-20-2024 13:25-0500 Heart rate75 /minGloria Tyson DO Work Phone: 1(219)[address] [place], [place] 1784411-20-2024 13:25-0500 Respiratory rate18 /minGloria Tyson DO Work Phone: 1(325)[address] [place], [place] 1784411-20-2024 13:25-0500 SaO2% (BldA) [Mass fraction]95 %Peri Marbella DO Work Phone: 1(861)[address] [place], [place] 1784411-20-2024 13:25-0500 Systolic blood dxrfcjaq684 mm[Hg]Peri Tyson DO Work Phone: 1(910)[address] [place], [place] 1784410-29-2024 08:51-0400 Body irjuom260.4 cmDO Peri Tyson Work Phone: 1(448)[address] [place], [place] 1784410-29-2024 08:51-0400 Body mass index (BMI) [Ratio]47.2 kg/m2DO Peri Tyson Work Phone: 1(114)[address]10-29-2024 08:51-0400 Body aibpac711.76 kgDO Peri Tyson Work Phone: 1(727)[address] [place], [place] 1784410-29-2024 08:51-0400 Diastolic blood hdomclst83 mm[Hg]DO Peri Tyson Work Phone: 1(817)[address] [place], [place] 1784410-29-2024 08:51-0400 Heart rate59 /Ramos Tyson Work Phone: 1(239)[address] [place], [place] 1784410-29-2024 08:51-0400 Inhaled oxygen flow rate4 L/Ramos Tyson Work Phone: 1(520)[address] [place], [place] 1784410-29-2024 08:51-0400 Respiratory rate16 /Ramos Tyson Work Phone: 1(703)[address] [place], [place] 1784410-29-2024 08:51-0400 SaO2% (BldA) [Mass fraction]96 %DO Peri Tyson Work Phone: 1(207)[address] [place], [place] 1784410-29-2024 08:51-0400 Systolic blood fisqjqod814 mm[Hg]DO Peri Tyson Work Phone: 1(222)[address] [place], [place] 1784410-22-2024 08:17-0400 Body oacvrg165.4 cmMack Tsai DPM Work Phone: [facility]kvl[facility]amqa79[facility]19-6028 08:17-0400Body mass index (BMI) [Ratio]48.63 kg/b8SvyhkcvgMack Tsai DPM Work Phone: [facility] CareBsoezvtzhh88-49-4687 08:17-0400Body .95 kgMack Tsai DPM Work Phone: [facility] CareNhywzakiwu83-10-3761 08:17-0400Diastolic blood mm[Hg]Mack Tsai DPM Work Phone: [facility] CareEfgzojinoj00-32-5503 08:17-0400Heart rate81 /min Mack Tsai DPM Work Phone: [facility] CareYjeqksmvnb98-22-6658 08:17-0400Systolic blood tkzyyiiw750 mm[Hg]Mack Tsai DPM Work Phone: [facility] CareGbsweiifxm46-33-7732 10:51-0400Body qkkpua003.4 Leila Aguilar MD Work Phone: [facility] CareZnpblhsoxv07-23-8057 10:51-0400Body mass index (BMI) [Ratio]48.63 kg/g4AqeasJeannie Aguilar MD Work Phone: [facility] CareKtxwzaaptt92-50-9211 10:51-0400Body kwbhxi151.95 kgJeannie Aguilar MD Work Phone: [facility] CareAedbbfjqes19-85-0363 10:51-0400Diastolic blood seodzpoh07 mm[Hg]Jeannie Aguilar MD Work Phone: [facility] CareYvrvieammc13-93-2688 10:51-0400Heart rate81 /min Jeannie Aguilar MD Work Phone: [facility] CareEoavbeatnr75-01-9499 10:51-0400Respiratory rate18 /minJeannie Aguilar MD Work Phone: [facility] CareNgsiopmtke93-08-8163 10:51-0400Systolic blood fecefvpt767 mm[Hg]Jeannie Aguilar MD Work Phone: [facility] [id number] 13:41-0400Body wafgsi532.6 cmLeaclyde Radha DO Work Phone: [facility] CareEmcdjerdmq89-73-7868 13:41-0400Body mass index (BMI) [Ratio]41.54 kg/l9Orddem Radha DO Work Phone: [facility] CareHrfqqzxhzj94-01-5029 13:41-0400Body .77 kgLeanne Radha DO Work Phone: [facility] CareMqesoljgbp98-75-6911 13:41-0400Diastolic blood ypgpytak98 mm[Hg]Svetlana Radha DO Work Phone: [facility] CareKbsmxvedoj54-38-9442 13:41-0400Heart rate97 /min Svetlana Radha DO Work Phone: [facility] CareJecenhztyr07-62-7506 13:41-5807RvH7% (BldA) [Mass fraction]98 %Svetlana Radha DO Work Phone: [facility] Care[facility]xjgolwqvl22-81-9738 13:41-0400Systolic blood hpevsvdj999 mm[Hg]Svetlana Radha DO Work Phone: [facility] CareAfwakrmwtw80-96-3292 10:17-0400Body temperature 97.9 [degF]DO Peri Tyson Work Phone: 1(625)[address] [place], [place] 1784405-22-2024 10:17-0400 Body hqndke735.49 kgDO Peri Tyson Work Phone: 1(339)[address] [place], [place] 1784405-22-2024 10:17-0400 Diastolic blood hjhggafs59 mm[Hg]DO Peri Tyson Work Phone: 1(890)[address] [place], [place] 1784405-22-2024 10:17-0400 Heart rate51 /MiguelangelO Periluis Tyson Work Phone: 1(359)[address] [place], [place] 1784405-22-2024 10:17-0400 Inhaled oxygen flow rate4 L/minDO Peri Marbella Work Phone: 1(365)6-[address] [place], [place] 4353505-22-2024 10:17-0400 Respiratory rate16 /minDO Peri Tyson Work Phone: 1(538)[address] [place], [place] 1784405-22-2024 10:17-0400 SaO2% (BldA) [Mass fraction]96 %DO Peri Marbella Work Phone: 1(600)[address]05-22-2024 10:17-0400 Systolic blood mm[Hg]DO Peri Tyson Work Phone: 1(481)[facility] [place], [place] 4353504-29-2024 09:23-0400 Body hsenzf304.4 cmDO Peri Tyson Work Phone: 1(533)[address] [place], [place] 1784404-29-2024 09:23-0400 Body mass index (BMI) [Ratio]49.4 kg/m2DO Peri Tyson Work Phone: 1(254)[address] [place], [place] 1784404-29-2024 09:23-0400 Body ksapsv784.78 kgDO Peri Tyson Work Phone: 1(213)[address]04-29-2024 09:23-0400 Diastolic blood mm[Hg]DO Peri Tyson Work Phone: 1(201)[address] [place], [place] 1784404-29-2024 09:23-0400 Heart asen272 /Ramos Tyson Work Phone: 1(918)[address] [place], [place] 1784404-29-2024 09:23-0400 Inhaled oxygen flow rate4 L/Ramos Tyson Work Phone: 1(030)[address] [place], [place] 1784404-29-2024 09:23-0400 Respiratory rate18 /Ramos Tyson Work Phone: 1(361)[address] [place], [place] 1784404-29-2024 09:23-0400 SaO2% (BldA) [Mass fraction]96 %DO Peri Tyson Work Phone: 1(245)[address] [place], [place] 4353504-29-2024 09:23-0400 Systolic blood hepypvdu080 mm[Hg]DO Peri Tyson Work Phone: 1(830)4-[address] [place], [place] 4353502-14-2024 09:16-0500 Body thkyxt361.4 cmDO Brenden Groves Work Phone: 1(025)016-[facility]02-14-2024 09:16-0500 Body mass index (BMI) [Ratio]48.8 kg/m2DO Brenden Groves Work Phone: [facility]02-14-2024 09:16-0500 Body vaqiugxlrua21.4 [degF]DO Christopher Germain Work Phone: 1(470)621-[address] [place], [place] 3957202-14-2024 09:16-0500 Body fxlvep345.39 kgDO Christopher Germain Work Phone: 1(071)336-[address] [place], [place] 3957202-14-2024 09:16-0500 Diastolic blood kamclymw62 mm[Hg]DO Christopher Germain Work Phone: 1(099)921-[address] [place], [place] 3957202-14-2024 09:16-0500 Heart rate74 /minDO Brenden Groves Work Phone: 1(601)728-[address] [place], [place] 3957202-14-2024 09:16-0500 SaO2% (BldA) [Mass fraction]98 %DO Rayshawnopher Germain Work Phone: 1(251)705-[address] [place], [place] 3957202-14-2024 09:16-0500 Systolic blood ugefxmhq816 mm[Hg]DO Christopher Germain Work Phone: 1(513)072-[address] [place], [place] 3957201-30-2024 08:28-0500 Body .4 cmDO Brenden Groves Work Phone: 1(957)422-[address] [place], [place] 3957201-30-2024 08:28-0500 Body mass index (BMI) [Ratio]48.8 kg/m2DO Bryner Germain Work Phone: 1(257)721-[address] [place], [place] 3957201-30-2024 08:28-0500 Body .39 kgDO Brenden Groves Work Phone: 1(884)859-[address] [place], [place] 3957201-30-2024 08:17-0500 Body frzyevaquje10.3 [degF]DO Periluis Tyson Work Phone: [facility]01-30-2024 08:17-0500 Diastolic blood udlxdghq14 mm[Hg]DO Peri Tyson Work Phone: [facility]01-30-2024 08:17-0500 Heart wknb609 /minDO Peri Tyson Work Phone: 1(850)[address]01-30-2024 08:17-0500 Respiratory rate18 /minDO Peri Tyson Work Phone: 1(266)[address] [place], [place] 1784401-30-2024 08:17-0500 Systolic blood mm[Hg]DO Peri Marbella Work Phone: 1(213)[address] [place], [place] 1784401-16-2024 09:09-0500 Body mkkafx285.4 cmDO Periluis Tyson Work Phone: 1(338)[address] [place], [place] 1784401-16-2024 09:09-0500 Body mass index (BMI) [Ratio]48.8 kg/m2DO Peri Tyson Work Phone: 1(148)[address] [place], [place] 1784401-16-2024 09:09-0500 Body rdipsu571.39 kgDO Peri Tyson Work Phone: 1(940)[address] [place], [place] 1784401-16-2024 08:50-0500 Body cebzngcitag75 [degF]DO Periluis Tyson Work Phone: 1(068)[address] [place], [place] 1784401-16-2024 08:50-0500 Diastolic blood taihbvyi88 mm[Hg]DO Peri Tyson Work Phone: 1(235)[address] [place], [place] 1784401-16-2024 08:50-0500 Heart bsud411 /minDO Peri Tyson Work Phone: 1(775)[address] [place], [place] 1784401-16-2024 08:50-0500 Inhaled oxygen flow rate4 L/minDO Peri Tyson Work Phone: 1(552)[address] [place], [place] 1784401-16-2024 08:50-0500 Respiratory rate20 /minDO Peri Tyson Work Phone: 1(714)[address] [place], [place] 1784401-16-2024 08:50-0500 Systolic blood emagkyqa840 mm[Hg]DO Peri Tyson Work Phone: 1(166)[address] [place], [place] 1784411-22-2023 13:28-0500 Body ncprjybdgep27.6 [degF]DO Peri Tyson Work Phone: 1(173)[address] [place], [place] 1784411-22-2023 13:28-0500 Body .22 kgDO Peri Tyson Work Phone: 1(106)[address] [place], [place] 1784411-22-2023 13:28-0500 Diastolic blood hewazljt32 mm[Hg]DO Peri Tyson Work Phone: 1(281)[address] [place], [place] 1784411-22-2023 13:28-0500 Heart rate87 /minDO Peri Tyson Work Phone: 1(825)[address] [place], [place] 1784411-22-2023 13:28-0500 Inhaled oxygen flow rate4 L/minDO Peri Tyson Work Phone: 1(898)[address] [place], [place] 1784411-22-2023 13:28-0500 Respiratory rate16 /minDO Peri Tyson Work Phone: 1(613)[address] [place], [place] 1784411-22-2023 13:28-0500 SaO2% (BldA) [Mass fraction]97 %DO Peri Tyson Work Phone: 1(504)[address] [place], [place] 1784411-22-2023 13:28-0500 Systolic blood criaygmc614 mm[Hg]DO Peri Tyson Work Phone: 1(344)[address] [place], [place] 1784411-02-2023 10:15-0400 Diastolic blood smmekxwp97 mm[Hg]DO Peri Tyson Work Phone: 1(430)[address] [place], [place] 1784411-02-2023 10:15-0400 Heart rate77 /minDO Peri [facility] Work Phone: 1(624)[address] [place], [place] 1784411-02-2023 10:15-0400 Inhaled oxygen flow rate4 L/minDO Peri Tyson Work Phone: 1(541)[address] [place], [place] 1784411-02-2023 10:15-0400 Respiratory rate18 /minDO Peri Tyson Work Phone: 1(444)974-[address] [place], [place] 4353511-02-2023 10:15-0400 SaO2% (BldA) [Mass fraction]97 %DO Peri Tyson Work Phone: 1(292)[address] [place], [place] 1784411-02-2023 10:15-0400 Systolic blood oxctrcgf015 mm[Hg]DO Peri Tyson Work Phone: 1(651)[address] [place], [place] 1784411-02-2023 08:15-0400 Body cytbzr809.4 cmDO Peri Tyson Work Phone: 1(604)[address] [place], [place] 1784411-02-2023 08:15-0400 Body etvwiz686.86 kgDO Peri Tyson Work Phone: 1(007)[address] [place], [place] 1784410-27-2023 09:00-0400 Body mypzik374.4 cmPeri Tyson Other [place] [employer] Other [id number] 09:00-0400Body mass index (BMI) [Ratio] 48.43 kg/e3Qwtzpo Tyson Other [employer] Other 10-27-2023 09:00-0400Body .49 kgPeri Tyson Other [place] [employer] Other [id number] 09:00-0400Diastolic blood hqhbywcl18 mm[Hg] Peri Marbella Other [facility] Other [id number] 09:00-0400Respiratory rate20 /minPeri Tyson Other [employer] Other 10-27-2023 09:00-5539DtO0% (BldA) [Mass fraction]99 % Peri Tyson Other [place] [employer] Other 10-27-2023 09:00-0400Systolic blood fejbkfvv857 mm[Hg] Periroyce Tyson Other [place] [employer] Other [id number] 08:55-0400Body haksvqxvwgc08.5 [degF]DO Periluis Tyson Work Phone: 1(765)[address] [place], [place] 1784410-19-2023 08:55-0400 Body uedpjo108.94 kgDO Peri Tyson Work Phone: 1(389)[address] [place], [place] 1784410-19-2023 08:55-0400 Diastolic blood nrjkkace65 mm[Hg]DO Peri Marbella Work Phone: 1(597)[address] [place], [place] 1784410-19-2023 08:55-0400 Heart rate82 /minDO Peri Tyson Work Phone: 1(876)[address] [place], [place] 1784410-19-2023 08:55-0400 Respiratory rate16 /minDO Peri Tyson Work Phone: 1(483)[address] [place], [place] 1784410-19-2023 08:55-0400 SaO2% (BldA) [Mass fraction]98 %DO Peri Tyson Work Phone: 1(078)[address] [place], [place] 1784410-19-2023 08:55-0400 Systolic blood mm[Hg]DO Periluis Tyson Work Phone: 1(327)[address] [place], [place] 1784410-02-2023 08:00-0400 Body gamsdg109.4 [facility] [employer] Other [place] [employer] Other 10-02-2023 08:00-0400Body mass index (BMI) [Ratio] 47.84 kg/b2Acogznl [employer] Other [place] [employer] Other 10-02-2023 08:00-0400Body niikxg753.13 kgDew[facility] [employer] Other [facility] [employer] Other 10-02-2023 08:00-0400Diastolic blood tvdyxqie860 mm[Hg]Patsy Blades Other [facility] [employer] Other 10-02-2023 08:00-0400Systolic blood orvdtnvc569 mm[Hg] Patsy Blades Other [place] [employer] Other 09-07-2023 13:38-0400Diastolic blood ngbvsffu60 mm[Hg] DO Peri Tyson Work Phone: 1(277)[address]09-07-2023 13:38-0400 Heart rate77 /minDO Peri Tyson Work Phone: 1(642)[address] [place], [place] 1784409-07-2023 13:38-0400 Inhaled oxygen flow rate4 L/minDO Peri Tyson Work Phone: 1(649)[address]09-07-2023 13:38-0400 Respiratory rate16 /minDO Peri Tyson Work Phone: 1(068)[address]09-07-2023 13:38-0400 SaO2% (BldA) [Mass fraction]97 %DO Peri Tyson Work Phone: 1(377)6-[facility]09-07-2023 13:38-0400 Systolic blood oaytbolg633 mm[Hg]DO Peri Tyson Work Phone: 1(742)[address] [place], [place] 4353509-07-2023 11:03-0400 Body lchedx000.4 cmDO Peri [employer] Work Phone: 1(764)1-[address] [place], [place] 4353509-07-2023 11:03-0400 Body mass index (BMI) [Ratio]44.9 kg/m2DO Peri Tyson Work Phone: 1(838)8-[address] [place], [place] 4353509-07-2023 11:03-0400 Body .32 kgDO Peri Tyson Work Phone: 1(549)4-[address] [place], [place] 4353509-07-2023 09:34-0400 Body uuouhilablb10.1 [degF]DO Periluis Tyson Work Phone: 1(429)3-[facility]06-06-2023 11:30-0400 Body rnuado828.4 cmGlanh Tyson Other [place] [employer] Other [id number] 11:30-0400Body mass index (BMI) [Ratio] 45.19 kg/r7MnutqaPeri Tyson Other [place] [employer] Other 06-06-2023 11:30-0400Body jpvzgo817.96 kgGlanh Tyson Other [place] [employer] Other 06-06-2023 11:30-0400Diastolic blood ybpulxou52 mm[Hg] Peri Tyson Other [place] [employer] Other 06-06-2023 11:30-0400Respiratory rate20 /minPeri Tyson Other [facility] Other 06-06-2023 11:30-0488XbJ8% (BldA) [Mass fraction]99 % Peri Tyson Other [place] [employer] Other 06-06-2023 11:30-0400Systolic blood rlygaume508 mm[Hg] Peri Tyson Other [employer] Other 04-19-2023 15:04-0400Body eksrdqnzvar88.8 [degF]DO Peri Tyson Work Phone: 1(256)[address]04-19-2023 15:04-0400 Body jthsoz486.41 kgDO Peri Tyson Work Phone: 1(213)[facility] [place], [place] 4353504-19-2023 15:04-0400 Diastolic blood wykutsew60 mm[Hg]DO Peri Tyson Work Phone: 1(045)[address]04-19-2023 15:04-0400 Heart rate82 /minDPedro Luis Whitt Tyson Work Phone: 1(559)[address]04-19-2023 15:04-0400 Respiratory rate16 /minDO Peri Tyson Work Phone: 1(907)[address] [place], [place] 1784404-19-2023 15:04-0400 SaO2% (BldA) [Mass fraction]97 %DO Peri Tink Phone: 1(621)[address]04-19-2023 15:04-0400 Systolic blood upfcynbv038 mm[Hg]DO Peri Tyosn Work Phone: 1(251)[address] [place], [place] 1784403-27-2023 10:00-0400 Body .4 cmLulú Ruth Other [place] [employer] Other 03-27-2023 10:00-0400Body mass index (BMI) [Ratio] 44.33 kg/p6QylgpbLulú Ruth Other [place] [employer] Other 03-27-2023 10:00-0400Body tulgtimfudx43.8 [degF]Lulú Ruth Other [place] [employer] Other 03-27-2023 10:00-0400Body xeqgcc085.97 kgLulú Ruth Other [place] [employer] Other 03-27-2023 10:00-0400Diastolic blood efxlqfam05 mm[Hg] Lulú Ruth Other [place] [employer] Other 03-27-2023 10:00-3946GqA8% (BldA) [Mass fraction]98 % Lulú Ruth Other [place] [employer] Other 03-27-2023 10:00-0400Systolic blood jchtnifh635 mm[Hg] Lulú Ruth Other [place] [employer] Other 01-30-2023 15:11-0500Diastolic blood difiqoex47 mm[Hg] DO Periluis Tyson Work Phone: [facility]01-30-2023 15:11-0500 Heart rate65 /minDO Peri Tyson Work Phone: 1(328)[address]01-30-2023 15:11-0500 Inhaled oxygen flow rate4 L/minDO Peri Tyson Work Phone: 1(435)488-[facility]01-30-2023 15:11-0500 Respiratory rate18 /minDO Peri Tyson Work Phone: 1(501)193-[facility]01-30-2023 15:11-0500 SaO2% (BldA) [Mass fraction]98 %DO Peri Tyson Work Phone: [facility]01-30-2023 15:11-0500 Systolic blood mgdqsweh130 mm[Hg]DO Peri Tyson Work Phone: [facility]01-30-2023 14:20-0500 Body gqudcudcdkl45 [degF]DO Peri Tyson Work Phone: 1(304)912-[facility]01-25-2023 11:00-0500 Body bwbkje377.4 cmPeri Tyson Other [place] [employer] Other 01-25-2023 11:00-0500Body mass index (BMI) [Ratio] 45.66 kg/a5Woiktsanh Tyson Other [place] [employer] Other 01-25-2023 11:00-0500Body qbcazc769.05 kgGlanh Tyson Other [place] [employer] Other 01-25-2023 11:00-0500Diastolic blood vywbicgf11 mm[Hg] Peri Marbella Other [place] [employer] Other 01-25-2023 11:00-0500Respiratory rate20 /minGlanh Tyson Other [place] [employer] Other 01-25-2023 11:00-4865HpK1% (BldA) [Mass fraction]99 % Peri Tyson Other [place] [employer] Other 01-25-2023 11:00-0500Systolic blood napiqumt236 mm[Hg] Peri Tyson Other [place] [employer] Other [id number] 10:55-0500Body .4 cmDO Giovanni Moreno Work Phone: 1(326)2-[facility]01-11-2023 10:55-0500 Body nhayrv118.3 kgDO Gioavnni Moreno Work Phone: 1(801)[facility] [place], [place] 4353501-11-2023 10:55-0500 Diastolic blood tziswibg16 mm[Hg]DO Giovanni Moreno Work Phone: 1(311)[facility] [place], [place] 4353501-11-2023 10:55-0500 Heart rate75 /minDO Giovanni Moreno Work Phone: 1(528)[address] [place], [place] 1784401-11-2023 10:55-0500 Inhaled oxygen flow rate5 L/Ramos Moreno Work Phone: 1(515)[address] [place], [place] 1784401-11-2023 10:55-0500 Respiratory rate20 /Ramos Moreno Work Phone: 1(767)[address] [place], [place] 1784401-11-2023 10:55-0500 SaO2% (BldA) [Mass fraction]100 %DO Giovanni Moreno Work Phone: 1(552)[address] [place], [place] 1784401-11-2023 10:55-0500 Systolic blood jsanlzrv639 mm[Hg]DO Giovanni Moreno Work Phone: 1(654)[address] [place], [place] 1784410-24-2022 11:00-0400 Body alwfmj090.4 cmPeri Tyson Other [employer] Other [id number] 11:00-0400Body mass index (BMI) [Ratio] 46.59 kg/a5YtialrPeri Tyson Other [employer] Other 10-24-2022 11:00-0400Body ooevez554.23 kgPeri Tyson Other [facility] Other 10-24-2022 11:00-0400Diastolic blood dtnhvuym60 mm[Hg] Peri Tyson Other [employer] Other 10-24-2022 11:00-0400Respiratory rate20 /minPeri Tyson Other [employer] Other 10-24-2022 11:00-5173BiQ6% (BldA) [Mass fraction]99 % Peri Tyson Other [employer] Other 10-24-2022 11:00-0400Systolic blood oezlhxeb049 mm[Hg] Peri Tyson Other [employer] Other 09-12-2022 14:30-0400Body hzilnh695.4 cmGlanh Tyson Other [employer] Other 09-12-2022 14:30-0400Body mass index (BMI) [Ratio] 47.28 kg/b9Wkhcrtanh Tyson Other [employer] Other 09-12-2022 14:30-0400Body ancmiu303.82 kgGlanh Tyson Other [employer] Other 09-12-2022 14:30-0400Diastolic blood nzsutcof91 mm[Hg] Peri Tyson Other [employer] Other 09-12-2022 14:30-0400Respiratory rate20 /minGlanh Tyson Other [employer] Other 09-12-2022 14:30-5529XfS8% (BldA) [Mass fraction]100 % Peri Tyson Other [employer] Other 09-12-2022 14:30-0400Systolic blood emeuesht261 mm[Hg] Peri Marbella Other [employer] Other 07-13-2022 13:14-0400Body llqrwqkoqxh82 [degF]DO Giovanni Moreno Work Phone: [facility]07-13-2022 13:14-0400 Body dquvpx043.67 kgDO Giovanni Moreno Work Phone: 1(147)403-[facility]07-13-2022 13:14-0400 Diastolic blood mm[Hg]DO Giovanni Moreno Work Phone: 1(546)879-[facility]07-13-2022 13:14-0400 Heart rate70 /Ramos Moreno Work Phone: 1(469)0-[address] [place], [place] 4353507-13-2022 13:14-0400 Respiratory rate16 /MiguelangelO Giovanni Moreno Work Phone: 1(046)[address]07-13-2022 13:14-0400 SaO2% (BldA) [Mass fraction]97 %DO Giovanni Moreno Work Phone: 1(304)[address]07-13-2022 13:14-0400 Systolic blood htggblji536 mm[Hg]DO Giovanni Moreno Work Phone: 1(424)8-[address] [place], [place] 4353507-11-2022 14:45-0400 Body pllaee968.4 cmGiovanni Moreno Other [employer] Other 07-11-2022 14:45-0400Body mass index (BMI) [Ratio] 48.08 kg/b4IvzffGiovanni Moreno Other [employer] Other 07-11-2022 14:45-0400Body .68 kgGiovanni Moreno Other [employer] Other 07-11-2022 14:45-0400Diastolic blood greisfjg73 mm[Hg] Giovanni Moreno Other [employer] Other 07-11-2022 14:45-0400Respiratory rate20 /minGiovanni Moreno Other [employer] Other 07-11-2022 14:45-8659PzU5% (BldA) [Mass fraction]99 % Giovanni Moreno Other [facility] [employer] Other 07-11-2022 14:45-0400Systolic blood mm[Hg] Giovanni Moreno Other [place] [employer] Other 06-16-2022 11:50-0400Diastolic blood pggnuafb50 mm[Hg] DO Giovanni Moreno Work Phone: 1(076)[address]06-16-2022 11:50-0400 Heart rate75 /Ramos Moreno Work Phone: 1(981)[address] [place], [place] 1784406-16-2022 11:50-0400 Inhaled oxygen flow rate5 L/Ramos Moreno Work Phone: 1(116)[address] [place], [place] 1784406-16-2022 11:50-0400 Respiratory rate16 /Ramos Moreno Work Phone: 1(957)1-[address] [place], [place] 4353506-16-2022 11:50-0400 SaO2% (BldA) [Mass fraction]100 %DO Giovanni Moreno Work Phone: 1(994)4[facility]06-16-2022 11:50-0400 Systolic blood mm[Hg]DO Giovanni Moreno Work Phone: 1(584)6-[address] [place], [place] 4353506-16-2022 09:07-0400 Body aazsjf343.4 cmDO Giovanni Moreno Work Phone: 1(702)8-[facility]06-16-2022 09:07-0400 Body mass index (BMI) [Ratio]48.2 kg/m2DO Giovanni Moreno Work Phone: 1(642)8-[facility]06-16-2022 09:07-0400 Body aycgle127.03 kgDO Giovanni Moreno Work Phone: [facility]05-12-2022 15:00-0400 Body qmtsva535.4 cmScollin Mckeon Other [facility] [employer] Other 05-12-2022 15:00-0400Body mass index (BMI) [Ratio] 49.21 kg/k7Jhgihw Zaky Other [place] [employer] Other 05-12-2022 15:00-0400Body .31 kgShsharlalukas Mckeon Other [facility] [employer] Other 05-12-2022 15:00-0400Diastolic blood rplegdlw92 mm[Hg] Nicko Linda Other [facility] [employer] Other 05-12-2022 15:00-7408VaM0% (BldA) [Mass fraction]97 % Nicko Doky Other [facility] [employer] Other 05-12-2022 15:00-0400Systolic blood nxcutzcw586 mm[Hg] Nicko Doky Other [facility] [employer] Other 05-06-2022 10:08-0400Body sbqpge882.4 cmDO Giovanni Moreno Work Phone: [facility]04-27-2022 10:00-0400 Body yukrkw510.4 cmGiovanni Moreno Other [employer] Other 04-27-2022 10:00-0400Body mass index (BMI) [Ratio] 50.03 kg/g9OhmfqGiovanni Izaguirreahan Other [facility] [employer] Other 04-27-2022 10:00-0400Body .21 kgGiovanni Moreno Other [employer] Other 04-27-2022 10:00-0400Diastolic blood znepbqam61 mm[Hg] Giovanni Moreno Other [employer] Other 04-27-2022 10:00-0400Respiratory rate20 /minGiovanni Moreno Other [employer] Other 04-27-2022 10:00-4126UfJ6% (BldA) [Mass fraction]99 % Giovanni Moreno Other [employer] Other 04-27-2022 10:00-0400Systolic blood britjzzd899 mm[Hg] Giovanni Moreno Other [employer] Other 04-11-2022 10:30-0400Body .4 cmGiovanni Moreno Other [employer] Other 04-11-2022 10:30-0400Body mass index (BMI) [Ratio] 49.05 kg/w1KdbcsGiovanni Moreno Other [employer] Other 04-11-2022 10:30-0400Body asmsbr550.94 kgGiovanni Moreno Other [employer] Other 04-11-2022 10:30-0400Diastolic blood oglonhfk34 mm[Hg] Giovanni Moreno Other [employer] Other 04-11-2022 10:30-0400Respiratory rate20 /minGiovanni Moreno Other [employer] Other 04-11-2022 10:30-0703YmM3% (BldA) [Mass fraction]99 % Giovanni Moreno Other [employer] Other 04-11-2022 10:30-0400Systolic blood dvvnxgua397 mm[Hg] Giovanni Moreno Other [employer] Other 03-10-2022 10:45-0500Body zvwyuh930.4 cmGiovanni Moreno Other [employer] Other 03-10-2022 10:45-0500Body mass index (BMI) [Ratio] 48.43 kg/c2HeyoiGiovanni Moreno Other [employer] Other 03-10-2022 10:45-0500Body .49 kgGiovanni Moreno Other [employer] Other 03-10-2022 10:45-0500Diastolic blood mm[Hg] Giovanni Moreno Other [employer] Other 03-10-2022 10:45-0500Respiratory rate20 /minGiovanni Moreno Other [employer] Other 03-10-2022 10:45-0440TvU0% (BldA) [Mass fraction]99 % Giovanni Moreno Other [employer] Other 03-10-2022 10:45-0500Systolic blood ypnpywuv793 mm[Hg] Giovanni Moreno Other [employer] Other 02-10-2022 10:30-0500Body xynhwg070.4 cmGiovanni Moreno Other [employer] Other 02-10-2022 10:30-0500Body mass index (BMI) [Ratio] 48.23 kg/c9EugvdGiovanni Moreno Other [employer] Other 02-10-2022 10:30-0500Body frweuh436.04 kgGiovanni Moreno Other [employer] Other 02-10-2022 10:30-0500Diastolic blood xatiasvl81 mm[Hg] Giovanni Moreno Other [employer] Other 02-10-2022 10:30-0500Respiratory rate20 /minGiovanni Moreno Other [employer] Other 02-10-2022 10:30-0058HqG5% (BldA) [Mass fraction]99 % Giovanni Moreno Other [employer] Other 02-10-2022 10:30-0500Systolic blood yuzfmkni249 mm[Hg] Giovanni Moreno Other [employer] Other 01-19-2022 14:15-0500Body .4 cmGiovanni Moreno Other [employer] Other 01-19-2022 14:15-0500Body mass index (BMI) [Ratio] 48.23 kg/k6OcvhxGiovanni Moreno Other [employer] Other 01-19-2022 14:15-0500Body coaewx113.04 kgGiovanni Moreno Other [employer] Other 01-19-2022 14:15-0500Diastolic blood abdwmumt02 mm[Hg] Giovanni Moreno Other [employer] Other 01-19-2022 14:15-0500Respiratory rate20 /minGiovanni Moreno Other [employer] Other 01-19-2022 14:15-4157DgM4% (BldA) [Mass fraction]99 % Giovanni Moreno Other [employer] Other 01-19-2022 14:15-0500Systolic blood imnbczab374 mm[Hg] Giovanni Moreno Other [employer] Other 12-21-2021 11:00-0500Body jupbvy954.4 cmGiovanni Moreno Other [employer] Other 12-21-2021 11:00-0500Body mass index (BMI) [Ratio] 47.84 kg/k4FgihyGiovanni Moreno Other [employer] Other 12-21-2021 11:00-0500Body whbueo171.13 kgGiovanni Moreno Other [employer] Other 12-21-2021 11:00-0500Diastolic blood asdmlakm40 mm[Hg] Giovanni Moreno Other [employer] Other 12-21-2021 11:00-0500Respiratory rate20 /minGiovanni Moreno Other [employer] Other 12-21-2021 11:00-7632TwK9% (BldA) [Mass fraction]99 % Giovanni Moreno Other [employer] Other 12-21-2021 11:00-0500Systolic blood expjrsns714 mm[Hg] Giovanni Moreno Other [employer] Other 11-22-2021 10:30-0500Body kpbouo364.4 cmJegay Millerehrer Other [employer] Other 11-22-2021 10:30-0500Body mass index (BMI) [Ratio] 46.87 kg/f5EloumwzDomenico Millerehrer Other [employer] Other 11-22-2021 10:30-0500Body avlrkwgdvfl54.3 [degF] Domenico Millerehrer Other [employer] Other 11-22-2021 10:30-0500Body kbfebb068.86 kgJekvnggabbie Buehrer Other [employer] Other 11-22-2021 10:30-0500Diastolic blood lvrfvtyy62 mm[Hg] Domenico Millerehrer Other [employer] Other 11-22-2021 10:30-6484IvT4% (BldA) [Mass fraction]99 % Domenico Buehrer Other [employer] Other 11-22-2021 10:30-0500Systolic blood ridruodw51 mm[Hg] Domenico Buehrer Other [employer] Other Encounters Encounter DateEncounter TypeCare ProviderFacilityStart: 62-44-7631zfnvwkdkhrUua ReeseFacility:[facility]art: 02-06-2025 End: 62-11-1730Teeeqbbw Result EncounterRoxane Bills MD Work Phone: noms External Department UnsolicitedStart: 02-06-2025 End: 85-49-1789Lnzshcqg Result EncounterRoxane Bills MD Work Phone: noms External Department UnsolicitedStart: 01-18-2025 End: 76-45-6838dpvcyvoxinRfepwp A [facility] DO Work Phone: [facility] Work Phone: Start: 01-18-2025 End: 02-86-4159Chozghc encounter procedureRoxane Rojo MD-[facility] Work Phone: Start: 01-17-2025 End: 77-40-1364Vtocsfjp Result EncounterRoxane Bills MD Work Phone: noms External Department UnsolicitedStart: 01-17-2025 End: 90-22-6758Khhcftaf Result EncounterRoxane Bills MD Work Phone: noms External Department UnsolicitedStart: 12-27-2024 End: 10-01-9602Rtsxobnruf and management of inpatientGloria A [facility] DO Work Phone: [facility] Work Phone: Start: 27-93-7444Djv-patient / Non-visitMicsg Ellsworth MD-[facility] Infect Dis Work Phone: Start: 14-90-4934Ohqco Prasad MD-[facility] Work Phone: Start: 12-26-2024 End: 42-51-7395Fghyijmw Result EncounterRoxane Bills MD Work Phone: noms External Department UnsolicitedStart: 12-26-2024 End: 96-12-6034Xmxrrzns Result EncounterRoxane Bills MD Work Phone: noms External Department UnsolicitedStart: 12-26-2024 End: 53-63-6741Nsoozj Tyson DO Work Phone: [phone]-Msvmghiis Room Work Phone: Start: 12-26-2024 End: 34-14-7482Cunsurrul department patient visitGloria A [facility] DO Work Phone: [facility] Work Phone: Start: 63-80-0574Nwl Reese M MD-[facility] Acute Work Phone: Start: 12-21-2024 End: 35-99-6798Ygxgpwzk Result EncounterRoxane Bills MD Work Phone: noms External Department UnsolicitedStart: 12-21-2024 End: 21-42-9457Bhamutiq Result EncounterRoxane Bills MD Work Phone: noms External Department UnsolicitedStart: 12-21-2024 End: 85-96-3332hflhassjctThkofd A [facility] DO Work Phone: [facility] Work Phone: Start: 12-21-2024 End: 60-74-7316Yplyafo encounter procedureRoxane Rojo MD-[facility] Ambulatory Work Phone: Start: 12-21-2024 End: 79-38-8873Gli Reese M MD-[facility] Center Ambulatory Work Phone: Start: 12-19-2024 End: 91-75-9318Hxbsva Maricruz Tsai DPM Work Phone: noms Frank [facility]oto PodiatryStart: 12-19-2024 End: 96-70-7655Pqjdsq Maricruz Tsai DPM Work Phone: noms Frank Soto PodiatryStart: 12-19-2024 End: 90-41-1338Ipeujpwc Result EncounterRoxane Bills MD Work Phone: noms External Department UnsolicitedStart: 12-19-2024 End: 84-70-1991Eyvhhqh encounter procedureMack Tsai DP Work Phone: noms Frank Charles PodiatryComment on above: Diabetes mellitus due to underlying condition with diabetic polyneuropathy, with long-term current use of insulin (HCC) (Primary Dx); Pain due to onychomycosis of toenails of both feet; Xerosis cutisStart: 12-19-2024 End: 20-98-2843vilhmhfiibEMVDIFOZ A BROWNNot AvailableStart: 12-13-2024 End: 66-48-1792Gkfnafas Result EncounterRoxane Bills MD Work Phone: noms External Department UnsolicitedStart: 12-13-2024 End: 22-93-6553Pgxhwnpx Result EncounterRxoane Bills MD Work Phone: noms External Department UnsolicitedStart: 12-07-2024 Registered RecurringTruong GILL CredibleStart: 12-07-2024 Truong GILL CredibleStart: 08-00-4976kngkmueueyJosvgg A [facility] Facility:[facility] Systemtart: 12-06-2024 End: 77-30-1852Fpgrgfes Result EncounterRoxane Bills MD Work Phone: noms External Department UnsolicitedStart: 12-06-2024 End: 15-36-9571Pgmumjaz Result EncounterRoxane Bills MD Work Phone: noms External Department UnsolicitedStart: 12-06-2024 End: 58-14-0332abrseyndwoVzfkep Luis [facility] DO Work Phone: [facility] Work Phone: Start: 12-06-2024 End: 89-07-8184Tfprugl encounter procedureSugey [facility] Work Phone: Start: 12-06-2024 End: 04-14-3135Huxdhasnilam HOLLAND-[facility] Ambulatory Work Phone: Start: 76-60-1535Utt Reese M MD-[facility] Acute Work Phone: Start: 12-05-2024 End: 08-56-3483Lwczfnvw Result EncounterRoxane Bills MD Work Phone: noms External Department UnsolicitedStart: 12-05-2024 End: 95-99-5592Igjstkkp Result EncounterRoxane Bills MD Work Phone: noms External Department UnsolicitedStart: 11-28-2024 End: 10-04-6685Xhekmqai Result EncounterRoxane Bills MD Work Phone: noms External Department UnsolicitedStart: 11-28-2024 End: 67-45-5809Adnzqbxy Result EncounterRoxane Bills MD Work Phone: noms External Department UnsolicitedStart: 11-28-2024 End: 09-72-2421Jeluivqwz encounterJeannie Aguilar MD Work Phone: noms Power EndocrinologyComment on above:Med Refill Start: 11-22-2024 End: 56-33-6456qvahhmllntEdecqm Luis Tyson DO Work Phone: [facility] Work Phone: Start: 11-22-2024 End: 14-24-8245Nbxmgnk encounter procedureSugey HOLLAND-[facility] Ambulatory Work Phone: Start: 11-22-2024 End: 76-12-2545Ygiuyynnilam HOLLAND-[facility] Ambulatory Work Phone: Start: 60-61-4973Iww Reese M MD-[facility] Acute Work Phone: Start: 11-21-2024 End: 83-59-1111Yrlqmcmy Result EncounterRoxane Bills MD Work Phone: noms External Department UnsolicitedStart: 11-21-2024 End: 95-58-3783Cknasaol Result EncounterRoxane Bills MD Work Phone: noms External Department UnsolicitedStart: 11-14-2024 End: 04-15-9543Gyquvh Feli Aguilar MD Work Phone: noms Frank EndocrinologyStart: 11-14-2024 End: 11-93-7945Avwlve Feli Aguilar MD Work Phone: noms Frank EndocrinologyStart: 11-14-2024 End: 88-08-2326Jbknwv outpatient visit 25 minutesAhamelia Aguilar MD Work Phone: noms Power EndocrinologyComment on above:Vitamin D deficiency (Primary Dx); Type 2 diabetes mellitus with hyperglycemia, with long-term current use of insulin (HCC); Primary hypertension ; Hyperlipemia, mixed ; Insulin long-term use (HCC); Encounter for dietary consultation; Stage 3b chronic kidney disease ([facility]-HCC)Start: 11-14-2024 End: 66-19-8474oenaluaktuLQGFU F SABBAGHNot AvailableStart: 11-10-2024 End: 89-78-4521Fyvnkkbw Result EncounterRoxane Bills MD Work Phone: noms External Department UnsolicitedStart: 11-10-2024 End: 74-79-1740Yqtmzojk Result EncounterRoxane Bills MD Work Phone: noms External Department UnsolicitedStart: 11-01-2024 End: 01-78-0099vlebzuxsjcXmqwyi Luis Tyson DO Work Phone: [facility] Work Phone: Start: 11-01-2024 End: 83-49-9763Jyktgsy encounter Ariel Martinez RN-[facility] Work Phone: Start: 11-01-2024 End: 29-83-9581Papub Mcihelle RN-[facility] Work Phone: Start: 10-27-2024 End: 22-44-2351oyuqrrsjfsCnlgjd A Tyson DO Work Phone: [facility] Work Phone: Start: 10-27-2024 End: 61-45-9510Txmdyrj encounter procedureRoxane Rojo MD-[facility] Ambulatory Work Phone: Start: 10-27-2024 End: 47-24-3748Rdn Reese M MD-[facility] Ambulatory Work Phone: Start: 80-62-9703Qmlnwayfyf RecurringAbdgrisel FLANNERY CredibleStart: 22-94-7333Hecirdariqllázaro FLANNERY Credible Start: 10-17-2024 End: 73-32-5103ifbizcclvhIbqyxvq Vytautas Giedraitis MDFacility:PM Sanam Start: 10-06-2024 End: 07-32-4962icxcrgaygoMqmopf A Tyson DO Work Phone: [facility] Work Phone: Start: 10-06-2024 End: 58-00-9969Amcqtff encounter procedureRoxane Rojo MD-[facility] Ambulatory Work Phone: Start: 10-06-2024 End: 87-46-6505Aov Reese M MDRust Ambulatory Work Phone: Start: 10-05-2024 End: 80-20-7183Ysygphey Result EncounterRoxane Bills MD Work Phone: noms External Department UnsolicitedStart: 10-05-2024 End: 04-59-0414Xmgipgfd Result EncounterRoxane Bills MD Work Phone: noms External Department UnsolicitedStart: 09-30-2024 End: 04-91-9155Hiuqev flowsKeon Tsai DPM Work Phone: noms SD PODStart: 09-30-2024 End: 94-60-6247Gyyqqp flowsheetMack Tsai DPM Work Phone: noms SD PODStart: 09-30-2024 End: 45-44-5551Mqtanfd encounter procedureMack Tsai DPM Work Phone: noms SD PODComment on above:Diabetes mellitus due to underlying condition with diabetic polyneuropathy, with long-term current use of insulin (HCC) (Primary Dx); Pain due to onychomycosis of toenails of both feet; Xerosis cutisStart: 09-30-2024 End: 40-11-5051cmplkhwnxbVUYFSUPD A BROWNNot AvailableStart: 09-26-2024 End: 51-17-3367djpxvlxxioMgspswg Brittny Ramos MDFacility:[facility] [place] Start: 09-19-2024 End: 03-17-3955Mqufemzu Result EncounterRoxane Bills MD Work Phone: noms External Department UnsolicitedStart: 09-19-2024 End: 94-38-1954Umdhykdt Result EncounterRoxane Bills MD Work Phone: noms External Department UnsolicitedStart: 09-19-2024 End: 15-75-4902Xwekljgta to same day surgery centerRoxane Rojo MD-[facility] [place] Work Phone: Start: 09-19-2024 End: 52-98-1738Htc Reese M MD-[facility] [place] Work Phone: Start: 09-19-2024 End: 95-98-3910ctjnhvhwxrVzy ReeseFacility:[facility] Start: 08-31-2024 End: 74-03-8848Rmtnavy encounter procedureRoxane Rojo MD-[facility] Ambulatory Work Phone: Start: 08-31-2024 End: 76-50-0728Hfi Reese M MD-[facility] Ambulatory Work Phone: Start: 08-25-2024 End: 06-62-9139Hqtkdy teddyBradleyjose Garcia DO Work Phone: NOMS PULMStart: 08-25-2024 End: 58-41-2573Cyjtqf Willy Garcia DO Work Phone: NOMS PULMStart: 08-25-2024 End: 49-92-0629Wvbhuw outpatient visit 15 minutesSvetlana Garcia DO Work Phone: NOMS PULMComment on above:Chronic obstructive pulmonary disease, unspecified COPD type (CMS/HCC) (Primary Dx); Obstructive sleep apnea syndromeStart: 08-25-2024 End: 91-35-4003ysvyfnvgcyEOLLDU K STRACKNot AvailableStart: 08-23-2024 End: 68-87-8988Cgqqfaot Result EncounterRoxane Bills MD Work Phone: noms External Department UnsolicitedStart: 08-23-2024 End: 59-62-8442Liqcwswp Result EncounterRoxane Bills MD Work Phone: noms External Department UnsolicitedStart: 08-22-2024 End: 22-43-5680Urktym Feli Aguilar MD Work Phone: NOMS ENDOCRINOLOGYStart: 08-22-2024 End: 73-35-4531Lssrnirosario Aguilar MD Work Phone: N[facility]S ENDOCRINOLOGYStart: 08-22-2024 End: 18-28-1034Mttrgc outpatient visit 25 minutesJeannie Aguilar MD Work Phone: N[facility]S ENDOCRINOLOGYComment on above:Type 2 diabetes mellitus with hyperglycemia, with long-term current use of insulin (CMS/HCC) (Primary Dx); Vitamin D deficiency; Primary hypertension (CMS/HCC); Hyperlipemia, mixed (CMS/HCC); Insulin long-term use (CMS/HCC); Encounter for dietary consultation; Stage 3b chronic kidney disease (HCC) (CMS/HCC); Class 3 severe obesity due to excess calories with serious comorbidity and body mass index (BMI) of45.0 to 49.9 in adult; Type 2 diabetes mellitus with hyperglycemia (CMS/HCC)Start: 08-22-2024 End: 11-11-4910oswyawprqgZFDBUAlessia Chavarria AvailableStart: 08-15-2024 End: 60-54-0255dzuzjwjbfjFudwdfqEmma Ramos MDFacility:PM Sanam Start: 08-11-2024 End: 63-43-9906Xdcdchr encounter procedureGloria Tyson DO Work Phone: [facility] Sunnyvaletart: 08-11-2024 End: 71-34-7719nlcroqeljtXayjiy A Tyson DO Work Phone: [facility] Work Phone: Start: 08-08-2024 End: 99-84-0712kopxxxxtwoXduuwj A Tyson DO Work Phone: [facility] Work Phone: Start: 08-08-2024 End: 68-93-1847Plnfqhp encounter procedureGloria Tyson DO Work Phone: [facility] Work Phone: Start: 07-30-2024 End: 76-18-5822TrsequLcmntp K Strack DO Work Phone: noms PULMComment on above:Chronic obstructive pulmonary disease, unspecified COPD type (CMS/HCC)Start: 31-70-9908Bmoingajci RecurringGloria Tyson DO Work Phone: [facility]- CredibleStart: 06-28-2024 End: 08-95-7900zdpwccncrbDBSQCBIL A BROWNNot AvailableStart: 05-25-2024 End: 69-32-5722Bkhtxu teddyheetJeannie Aguilar MD Work Phone: noms ENDOCRINOLOGYStart: 05-25-2024 End: 67-43-2816Uahdnhorville Aguilar MD Work Phone: noms ENDOCRINOLOGYStart: 05-25-2024 End: 09-57-3305Hlisls outpatient visit 25 minutesJeannie Aguilar MD Work Phone: noms ENDOCRINOLOGYComment on above:Type 2 diabetes mellitus with hyperglycemia, with long-term current use of insulin ([facility]) (Primary Dx); Vitamin D deficiency; Primary hypertension ([facility]/HCC); Hyperlipemia, mixed ([facility]/HCC); Insulin long-term use ([facility]); Encounter for dietary consultation; Stage 3b chronic kidney disease (HCC) ([facility]); Class 3 severe obesity due to excess calories with serious comorbidity and body mass index (BMI) of45.0 to 49.9 in adult ([facility]); Type 2 diabetes mellitus with hyperglycemia ([facility])Start: 05-25-2024 End: 78-20-4019fcuklfmetaSFAZE F SABBAGHNot AvailableStart: 04-18-2024 End: 09-46-3696gfwzvjnsjfOwrhlycjqdo Alia Groves DO Work Phone: [facility] Work Phone: Start: 04-18-2024 End: 57-09-8044Nwcgfzc encounter procedureChristopher Groves DO Work Phone: [facility] Start: 04-15-2024 End: 69-87-4850Gdwqzy Maricruz Tsai DPM Work Phone: N[facility] SD PODStart: 04-15-2024 End: 30-74-5975Izrdce flowsKeon Tsai DPM Work Phone: N[facility] SD PODStart: 04-15-2024 End: 11-35-4503Obkkdr outpatient visit 15 minutesMack Tsai DPM Work Phone: noMS SD PODComment on above:Xerosis cutis (Primary Dx); Diabetes mellitus due to underlying condition with diabetic polyneuropathy, with long-term current use of insulin (CMS/HCC); Pain due to onychomycosis of toenails of both feetStart: 04-15-2024 End: 99-60-2423zefijvonpoDUCIJKXJ A BROWNNot AvailableStart: 03-21-2024 Registered RecurringChristopher Germain DO Work Phone: [facility] CredibleStart: 03-20-2024 End: 58-31-0336XtirsbNxqxiGiana Aguilar MD Work Phone: noms ENDOCRINOLOGYComment on above:Type 2 diabetes mellitus with hyperglycemia (CMS/HCC)Start: 03-07-2024 End: 19-44-3757Ygskdog encounter procedureChristopher Groves DO Work Phone: [facility] Physician [facility] Power Work Phone: Start: 26-09-7819Huambkuiih RecurringGloria Tyson DO Work Phone: [facility] Work Phone: Start: 03-02-2024 End: 23-74-7317qvejcbrmmsAdhefq Luis Tyson DO Work Phone: [facility] Work Phone: Start: 03-02-2024 End: 84-31-8233Niwpbxn encounter procedureGloria Tyson DO Work Phone: [facility] Ambulatory Work Phone: Start: 02-24-2024 End: 19-37-8820Fgmqfycz Result EncounterRoxane Bills MD Work Phone: noms External Department UnsolicitedStart: 02-24-2024 End: 41-43-2260Yqebqyiu Result EncounterRoxane Bills MD Work Phone: noms External Department UnsolicitedStart: 02-24-2024 Registered RecurringGloria Tyson DO Work Phone: [facility] Work Phone: Start: 83-88-3854Orzhnespdv RecurringGloria Marbella DO Work Phone: [facility] CredibleStart: 02-09-2024 End: 81-88-5134lgpqavrtjtMG Peri A Marbella Work Phone: [facility] Work Phone: Start: 02-09-2024 End: 65-04-8598Cllceuv encounter procedureDO Peri Marbella Work Phone: [facility] Work Phone: Start: 02-02-2024 End: 83-72-1394Svyuzk Maricruz Tsai DPM Work Phone: [facility] SD PODStart: 02-02-2024 End: 11-57-8920Nfvzua Maricruz Tsai DPM Work Phone: [facility] [place] PODStart: 93-47-7416Akidaaelrn RecurringDO Peri Marbella Work Phone: [facility] Work Phone: Start: 02-02-2024 End: 80-29-1222Gfoipsi encounter Doreen Tsai DPM Work Phone: NOM[facility] [place] PODComment on above:Diabetes mellitus due to underlying condition with diabetic polyneuropathy, with long-term current use of insulin ([facility]/HCC) (Primary Dx); Pain due to onychomycosis of toenails of both feetStart: 02-02-2024 End: 52-18-0439yiniluijgbLQSYBJOM A BROWNNot AvailableStart: 01-20-2024 End: 33-63-6622Uihsmx Feli Aguilar MD Work Phone: [facility] ENDOCRINOLOGYStart: 01-20-2024 End: 16-31-9278Jbiwkdorville Aguilar MD Work Phone: noms ENDOCRINOLOGYStart: 01-20-2024 End: 10-36-7859Dhzgje outpatient visit 25 minutesJeannie Aguilar MD Work Phone: noms ENDOCRINOLOGYComment on above:Type 2 diabetes mellitus with hyperglycemia, with long-term current use of insulin ([facility]) (Primary Dx); Vitamin D deficiency; Primary hypertension ([facility]); Hyperlipemia, mixed ([facility]); Insulin long-term use ([facility]); Encounter for dietary consultation; Stage 3b chronic kidney disease (HCC) ([facility]); Class 3 severe obesity due to excess calories with serious comorbidity and body mass index (BMI) of45.0 to 49.9 in adult ([facility])Start: 01-20-2024 End: 11-24-6779myqvkdjboqVGCAV F SABBAGHNot AvailableStart: 01-14-2024 End: 51-97-1655Wlcknj Willy Reardon Radha [employer] Work Phone: noMS PULMStart: 01-14-2024 End: 71-27-7594Pckjjvorville Garcia [employer] Work Phone: noms PULMStart: 01-14-2024 End: 16-12-3609Oxdwkn outpatient visit 15 minutesSvetlana Garcia [employer] Work Phone: noms PULMComment on above:Chronic obstructive pulmonary disease, unspecified COPD type ([facility]) (Primary Dx); Obstructive sleep apnea syndromeStart: 01-14-2024 End: 74-05-9111fdnwnofbnbYYFIKP K STRACKNot AvailableStart: 01-12-2024 End: 08-39-8852ZhunafSskbtktf A Brown DPM Work Phone: noms SD PODComment on above:Diabetes mellitus due to underlying condition with diabetic polyneuropathy, with long-term current use of insulin ([facility])Start: 12-30-2023 End: 85-19-3531uidfyinaztHkrhqr A Johns DO Work Phone: [phone] [place] [address] Work Phone: Start: 12-30-2023 End: 87-52-1042Fsfproubjs RecurringGloria Marbella DO Work Phone: [phone] [place] [address]-[address] [facility] Start: 96-55-1935Vfhzugwyql RecurringDO Peri Mareblla Work Phone: [phone] [place] [address]-[address] [facility] Start: 98-76-0641Wijnlwkmsg RecurringDO Peri Marbella Work Phone: [phone] [place] [address]- CredibleStart: 09-02-2023 End: 03-56-7660xjgwpkxfgvCC Peri A Tyson Work Phone: [phone] [place] [address] Work Phone: Start: 09-02-2023 End: 25-83-5590Pldqvzn encounter procedureDO Peri Tyson Work Phone: [phone] [place] [address] Physician Group-[facility] Ambulatory Work Phone: Start: 21-25-7789Kyhvtirezd RecurringDO Peri Marbella Work Phone: [phone] [place], [place] [address]Cancer Center Acute Work Phone: Start: 08-24-2023 End: 70-28-0920jhhfbzudtuXX Peri A Tyson Work Phone: [phone] [place] [address] Work Phone: Start: 08-24-2023 End: 18-05-6274Tqnjnsc encounter procedureDO Peri Tyson Work Phone: [phone] [place] [address] Ctr-[facility] [place] Work Phone: Start: 08-19-2023 End: 99-00-4171qxlxryawhqBF Peri A Tyson Work Phone: [phone] [place] [address] Work Phone: Start: 08-19-2023 End: 04-28-2916Ihkatjt encounter procedureDO Peri Tyson Work Phone: [facility] Work Phone: Start: 08-12-2023 End: 82-44-6244Lrrfwxo encounter procedureDO Peri Tyson Work Phone: [facility] Southlaketart: 08-10-2023 End: 13-20-7432ofplpvewkoPW Peri A Tyson Work Phone: [facility] Work Phone: Start: 08-10-2023 End: 77-72-8098Bmhoeni encounter procedureDO Peri Tyson Work Phone: [facility] Work Phone: Start: 07-31-2023 End: 38-32-8366cmvfbdkrlrBL Peri A Tyson Work Phone: [facility] Work Phone: Start: 07-31-2023 End: 01-46-5322Agjakfp encounter procedureDO Peri Marbella Work Phone: [facility] Southlaketart: 07-29-2023 End: 86-34-1040abwxnsybruUN Peri A Tyson Work Phone: [facility] Work Phone: Start: 07-29-2023 End: 51-94-1488Emrgchf encounter procedureDO Peri Tyson Work Phone: [facility] Vascular Surgery Work Phone: Start: 52-13-5082Sqt-patient / Non-visitDO Peri Tyson Work Phone: [facility] Work Phone: Start: 07-01-2023 End: 10-98-1980albzsripukDM Peri Smith Tyson Work Phone: [facility] Work Phone: Start: 07-01-2023 End: 68-40-0349Wszbazp encounter procedureDO Peri Tyson Work Phone: [facility] Vascular Surgery Work Phone: Start: 48-38-9078Ykrkacphiq RecurringDO Peri Tyson Work Phone: [facility]- CredibleStart: 05-27-2023 End: 37-13-1831bizztoywlwKC Brenden Groves Work Phone: [facility] Work Phone: Start: 05-27-2023 End: 27-39-0205Izdcmkg encounter procedureDO Brenden Groves Work Phone: [facility] Vascular Surgery Work Phone: Start: 05-22-2023 End: 61-47-4645cuhwjbrzezBuwqov Tyson Other [facility] [employer] Other Start: 78-97-4567Asrfxsfgh encounterGloria [facility] Medicine [place]kyStart: 46-47-3667RyooavNxqxyleb A Brown [facility] Work Phone: [facility] PODComment on above:Diabetes mellitus due to underlying condition with diabetic polyneuropathy, with long-term current use of insulin ([facility])Start: 05-12-2023 End: 87-59-7717bwqjigvuqrPF Peri Smith Tyson Work Phone: [facility] Work Phone: Start: 05-12-2023 End: 59-47-1105Tkvvbqpkig RecurringDO Peri Tyson Work Phone: [facility]-W[facility] Work Phone: Start: 05-08-2023 End: 65-71-9122cffgdkzbohZE Peri A Marbella Work Phone: [facility] Work Phone: Start: 05-08-2023 End: 93-71-8325Yjryaut encounter procedureDO Peri Marbella Work Phone: [facility] [place] Work Phone: Start: 25-77-4040Bcndyajmga RecurringDO Peri Marbella Work Phone: [facility]-Wound Care [facility] Work Phone: Start: 04-20-2023 End: 76-38-3452bdhxjojzbsVwdutp Tyson Other [employer] Other Start: 82-37-9413Xupxjbhcq encounterGloria Baptist [facility]Start: [facility] End: 43-11-6514heeghphlftZkjtvw Tyson Other [employer] Other Start: 67-02-5145Sdkxuzzyq encounterGloria [facility]: 03-24-2023 End: 87-64-1911mqqrjtbnofBbfgvv Tyson Other [employer] Other Start: 02-95-7524Hifldacca encounterGloria [facility]: 03-19-2023 End: 05-73-0663lmfbafsaxtIacydy Tyson Other [employer] Other Start: 11-92-8705Stgekuisf encounterGloria Metropolitan Hospitalart: 84-72-7220Wyafcsvkxn RecurringDO Brenden Groves Work Phone: [facility]- CredibleStart: 03-04-2023 End: 74-01-2346zdvxhsvglxJZ Periluis yTson Work Phone: [facility] Work Phone: Start: 03-04-2023 End: 06-99-5693Qdsuhdtjbi RecurringDO Peri Marbella Work Phone: [facility]-Cancer Center Work Phone: Start: 02-23-2023 End: 17-21-0222dewfaegmspQwhmkv Johns Other [employer] Other Start: 38-02-0192Adztrcrfd encounterGloria Metropolitan Hospitalart: 02-19-2023 End: 79-82-0108Hexzxjs encounter procedureDO Peri Tyson Work Phone: [facility]-Ultrasound [address] [place] Work Phone: Start: 02-12-2023 End: 00-15-5983azzfbysbkbOpqapp Johns Other [employer] Other Start: 87-49-6577Bwbvlyjox encounterGloria Metropolitan Hospitalart: 02-12-2023 End: 24-70-7803Hbyrsuaty to same day surgery centerDO Whitt Tyson Work Phone: [facility]-CT Scan [address] [place] Work Phone: Start: 45-04-8727Gsuuupwfrl RecurringDO Periluis Tyson Work Phone: [facility]- CredibleStart: 02-06-2023 End: 96-68-9400kbzwadmmzwSfdklu Johns Other [employer] Other Start: 39-49-5568Vafyphamm for general adult medical examination without abnormal findingsG[facility]ia [facility] Start: 41-38-9003Lwqcsmwl preventive med est patient 40-64yrsGloria Metropolitan Hospitalart: 37-21-2854Zbfcchyct encounterGloria Metropolitan Hospitalart: 02-04-2023 End: 88-17-3219ewdgamzrqbJI Peri A Tyson Work Phone: [facility] Work Phone: Start: 02-04-2023 End: 80-65-8974Sihiyzv encounter procedureDO Peri [facility] Work Phone: [facility]-MRI [address] Work Phone: Start: 02-03-2023 End: 47-44-9098quztsbyezpEsaeme Tyson Other [employer] Other Start: 80-21-5763Kxiyafofe encounterGloria Metropolitan Hospitalart: 01-29-2023 End: 85-97-1311ywlwikqdtfMJ Peri A Tyson Work Phone: [facility] Work Phone: Start: 01-29-2023 End: 90-02-4430Enhghigxfj RecurringDO Peri Tyson Work Phone: [facility]-Cancer Center Work Phone: Start: 01-21-2023 End: 97-61-6668ikfcephbmzMccdff Johns Other [employer] Other Start: 96-66-1390Hyawmxifi encounterGloria Metropolitan Hospitalart: 01-19-2023 End: 41-16-3372pjzblapkbzNugbln [facility] Other [employer] Other Start: 91-30-6058Dlxabmfic encounterGloria JohnsFP [facility] [place]Start: 01-15-2023 End: 24-79-6882okzvxyycxhKmeasfw Blades Other [employer] Other start: 25-33-8482Lqllvfeyz encounterDebor BladesFPG Referral CoordinatorStart: 01-12-2023 End: 06-91-9043hlitwnzwkjHuthspu Blades Other [employer] Other start: 20-46-0267Vlapxy outpatient new 45 minutes Patsy BladesFPG [facility] NeurosurgeryStart: 21-18-8777Dgjooteni encounter Patsy BladesFPG [facility] NeurosurgeryStart: 12-24-2022 End: 22-67-1077srttbkykrcUywkjn Johns Other [employer] Other Start: 13-00-8515Srxpdmryo encounterGloria MarbellaCOPPER SPRINGS HOSPITAL Family [facility] HospitalyStart: 12-18-2022 End: 69-26-9898Hyosuzbss to same day surgery new waverlyDO Peri Tyson Work Phone: [facility]Start: 12-18-2022 End: 48-51-7917dygcidqatfHC Gloria A Johns Work Phone: [facility] Work Phone: Start: 12-16-2022 End: 20-45-6262mjmiffiumtSrnxdj Johns Other [employer] Other Start: 78-27-5250Covmplnij encounterGloria MarbellaCOPPER SPRINGS HOSPITAL [facility]yStart: 12-10-2022 End: 11-39-3902fzhmeyzfmdXkapiy Tyson Other [employer] Other Start: 70-67-4868Neuxpgzsd encounterGloria [facility] HospitalyStart: 12-05-2022 End: 45-24-3863Ediensxt ReferredDO Peri Tyson Work Phone: [facility] Bgb-Ukd-Shwanbzj Testing Work Phone: Start: 12-05-2022 End: 32-70-9433Ubqcsqb encounter procedureDO Peri Marbella Work Phone: [facility] Xit-Gbn-Qjzaiqlp Testing Work Phone: Start: 12-04-2022 End: 82-05-9934ifjtogwcjfMX Peri A Tyson Work Phone: [facility] Work Phone: Start: 12-04-2022 End: 39-71-6461Hfmtlbi encounter procedureDO Peri Marbella Work Phone: [facility]-MRI [address] [place] Work Phone: Start: 11-20-2022 End: 50-64-7712pkghvqavfkUZ Peri A Marbella Work Phone: [facility] Work Phone: Start: 11-20-2022 End: 66-30-5920Gpcafovekh RecurringDO Peri Marbella Work Phone: [facility]-Physical Therapy [address]Start: 11-17-2022 End: 09-83-4139skaavfnxeeCdbrbw Marbella Other [employer] Other Start: 15-45-8113Ccffpcymt encounterGloria Baptist Memorial HospitalyStart: 10-27-2022 End: 80-42-0038rcflbtgjjhQfdiua Johns Other [employer] Other Start: 00-92-9117Jrobrvabw encounterGloria [facility] Family [facility] SandgerlachyStart: 10-13-2022 End: 63-31-9826xxedmpuhqeUoizos Tyson Other [employer] Other Start: 59-56-0987Kmopdymgc encounterGloria [facility] Family [facility] SandgerlachyStart: 10-10-2022 End: 84-78-1990ybvxedpjgjFnwdqh Tyson Other [employer] Other start: 44-25-5654Zkgeofifz encounterGloria [facility] HospitalyStart: 2022 End: 18-64-2324igolsmpajeYqpiig Tyson Other [employer] Other Start: 79-67-1528Wggpcitub encounterGloria [facility] HospitalyStart: 09-30-2022 End: 65-01-0576dulmxlztdrXpsiqh Tyson Other [employer] Other Start: 38-43-5964Zztaiwpyz encounterGloria [facility] HospitalyStart: 09-24-2022 End: 13-14-6429boqtcaiphqLrhkqe Tyson Other [employer] Other Start: 79-33-2296Ahysrpsym encounterGloria [facility] HospitalyStart: 43-51-3024Gsxscz outpatient visit 25 minutes Peri MarbellaCOPPER SPRINGS H[facility] HospitalyStart: 09-16-2022 End: 06-77-9801yhdhxzrysnBW Peri Tyson Work Phone: [employer] Other Start: 09-16-2022 End: 67-62-0347Kkohfnq encounter procedureDO Peri Tyson Work Phone: [facility]Start: 09-09-2022 End: 29-08-7700tclicflkeuKihxsv Johns Other [employer] Other Start: 87-31-4432Xpptcxdbq encounterGloria Baptist Memorial HospitalyStart: 19-60-6958Lczmjabrkq RecurringDO Peri Tyson Work Phone: [facility]-Physical Therapy [address] RdStart: 08-12-2022 End: 04-40-0958vhgfgenlfuCmbpkg Tyson Other [place] [employer] Other Start: 11-81-9187Cynbemfoh encounterGloria [facility] HospitalyStart: 08-07-2022 End: 95-09-9241hlqnjqdhymTW Peri A Tyson Work Phone: [facility] Work Phone: Start: 08-07-2022 End: 83-09-9132Slaxwgo encounter procedureDO Peri Tyson Work Phone: [facility]-Lab [address] [place] Work Phone: Start: 08-01-2022 End: 22-44-6517nlgsmsjjslXawrmh Marbella Other [place] [employer] Other Start: 36-85-5573Yoojfqpsg encounterGloria [facility] HospitalyStart: 52-83-3680Hptzvxnrof RecurringDO Peri Marbella Work Phone: [facility]-Cancer Center Work Phone: Start: 07-18-2022 End: 67-13-4862gqsfkurgjwNkxkgu Tyson Other [employer] Other Start: 21-59-8139Ejijjmmii encounterGloria [facility] SandgerlachyStart: 07-17-2022 End: 72-30-2853oaxvtzcxifMeybtx Tyson Other [employer] Other Start: 43-34-3851Drjceqhje encounterGloria [facility] SandgerlachyStart: 07-14-2022 End: 15-41-0761goskhpvbdpSuuovr Tyson Other [employer] Other Start: 99-07-6118Cvogzfceo encounterGloria [facility] HospitalyStart: 07-07-2022 End: 83-48-1772yvhegxchpbUayory Ruttino Other [facility] [employer] Other Start: 07-40-8037Esmrea-up encounterLulú Agrawal Vascular SurgeryStart: 07-07-2022 End: 15-73-4363Csoaamh encounter procedureDO Peri Tyson Work Phone: [facility]-Ultrasound [facility] VascularStart: 07-03-2022 End: 95-56-3741qfzslyxyuxMJ SANAMKONSTANTIN LINARES .Facility:P0Ocysr: 06-30-2022 End: 56-99-9878vnmpoxdmthPizpky Marbella Other [facility] [employer] Other Start: 34-96-0127Bfdipeocu encounterGloria [facility] Family [facility] SandgerlachyStart: 95-17-0198Eksnheniy encounterGloria JohnsCOPPER SPRINGS [facility] Family [facility] HospitalyStart: 05-23-2022 End: 30-63-1773pypxznqfydOG Peri Tyson Work Phone: [facility] Work Phone: Start: 05-23-2022 End: 86-54-8199Uxmczug encounter procedureDO Periluis Tyson Work Phone: [facility] Work Phone: Start: 05-15-2022 End: 05-76-7257wlhsjffrdiNjlivq Johns Other [employer] Other Start: 33-99-2113Bflalfxan encounterGloria [facility] Memorial HospitalyStart: 05-12-2022 End: 60-75-5282melrhuvnxuEnqudm Johns Other [employer] Other Start: 36-96-7236Zgpzgtxmp encounterGloria [facility] Memorial HospitalyStart: 92-49-8834Yqvytuzaeq RecurringDO Peri Tyson Work Phone: [facility]-Cancer Center Work Phone: Start: 05-09-2022 End: 50-60-4415Inpkkdp encounter procedureDO Peri Marbella Work Phone: [facility]-Lab [address] [place] Work Phone: Start: 05-07-2022 End: 05-58-8613roqyyjdkkfFwszss Johns Other [employer] Other Start: 85-26-5169Zxhfth outpatient visit 25 minutes Peri TysonCommunity Memorial Hospital of San BuenaventurayStart: 05-06-2022 End: 27-15-9720dgdrimdeprGE SANAM LINARES .Facility:T1Oemtg: 04-23-2022 End: 20-76-9873izemtgxhimJV Giovanni Moreno Work Phone: [facility] Work Phone: Start: 04-23-2022 End: 89-38-8597Dblsdqycyq Meena Moreno [facility] Phone: [facility] Work Phone: Start: 04-22-2022 End: 16-02-3598xmpaqwysnzNirbnz Tyson Other [employer] Other Start: 63-90-9392Dmtjkezzj encounterGloria JohnsCOPPER SPRINGS [facility] [place]Start: 04-21-2022 End: 68-80-0763isokgenkvaLhmjqp Tyson Other [employer] Other Start: 29-99-4897Cxqppjbgx encounterGloria JohnsCOPPER SPRINGS [facility] [place]Start: 04-17-2022 End: 20-03-9083zqddkytcckSxfdoj Tyson Other [employer] Other Start: 07-84-2520Qztaxkbwl encounterGloria JohnsCOPPER SPRINGS [facility] [place]Start: 04-02-2022 End: 26-94-5040mdnepfpayjWqskag Tyson Other [employer] Other Start: 38-73-3884Ofopsfnhv encounterGloria JohnsCOPPER SPRINGS [facility] [place]Start: 03-31-2022 End: 67-89-2602rdfxsxaldbJnmxxe Tyson Other [employer] Other Start: 19-80-4124Sfannfygl encounterGloria JohnsCOPPER SPRINGS [facility] [place]Start: 03-17-2022 End: 99-45-4171xuouzxelznEsdxbf Tyson Other [employer] Other Start: 31-86-6298Sgflshxro encounterGloria JohnsCOPPER SPRINGS [facility] [place]Start: 03-10-2022 End: 24-67-2425ypdsblkupgNpfdai Tyson Other [employer] Other Start: 21-08-7048Juldufaph encounterGloria JohnsCOPPER SPRINGS [facility] Family [facility] [place]kyStart: 02-19-2022 End: 55-33-1721ywswlfaoqqRT Giovanni Izaguirreahan Work Phone: [facility] Work Phone: Start: 02-19-2022 End: 18-64-8005Mwhtfhk encounter procedureDO Giovanni Izaguirreahan Work Phone: [facility]-Sleep LabStart: 02-18-2022 End: 39-81-8914fikspybawoHauehr Tyson Other [employer] Other Start: 08-28-7197Cwwzbepzq encounterGloria JohnsCOPPER SPRINGS [facility] Family [facility] [place]kyStart: 02-13-2022 End: 64-47-9680wzsipxcujwQirnee Tyson Other [employer] Other Start: 64-12-1225Qfpdvzgmr encounterGloria JohnsCOPPER SPRINGS [facility]ITAL Family [facility] [place]kyStart: 02-11-2022 End: 57-51-4060mpeljkiweeIirefz Tyson Other [employer] Other Start: 66-32-6621Ydddgtqjd encounterGloria JohnsCOPPER SPRINGS [facility] [place]Start: 02-10-2022 End: 03-25-3404wfhxksxqcrEedjui Tyson Other [employer] Other Start: 49-74-1720Bymnjxjhz encounterGloria JohnsCOPPER SPRINGS [facility] Family [facility] SandgerlachyStart: 04-38-4135Vhbkrr outpatient visit 25 minutes Peri MarbellaCOPPER SPRINGS HOS[facility]ITAL [facility] Medicine [place]lachyStart: 02-03-2022 End: 54-86-5681tgidpogyjpYY Kevin T Josh Work Phone: [facility] [employer] Other Start: 02-03-2022 End: 51-79-5958Iqrwmgrl Ronnie Moreno Work Phone: [facility]-Lab [facility] HospitalStart: 01-22-2022 End: 20-13-4951fqefiepnwcForels Tyson Other [facility] [employer] Other Start: 29-11-6286Tpmoszrsw encounterGloria JohnsCommunity Memorial Hospital of San BuenaventurayStart: 12-30-2021 End: 21-70-2752pylwbvtpmvNajmqi Tyson Other [facility] [employer] Other Start: 23-08-7799Anxxorggj encounterGloria JohnsCOPPER SPRINGS [facility]ITAL [facility]yStart: 12-23-2021 End: 82-73-9097ymqtfimlfmNylgte Tyson Other [facility] [employer] Other Start: 14-59-5576Lgjusa outpatient visit 25 minutes Periluis TysonCOPPER SPRINGS H[facility] HospitalyStart: 12-23-2021 End: 40-09-9554Usablecd Ronnie Moreno Work Phone: [facility] CampusStart: 11-29-2021 End: 66-51-0880fxlnvfvmmmKzzslux Manju Other [facility] [employer] Other Start: 79-45-0989Qcoffqrmw encounterRichard ManjuCOPPER SPRINGS HOSPITAL [facility] HospitalyStart: 11-05-2021 End: 12-47-6849ybjfkdqdjrSxxcd Carnahan Other [facility] [employer] Other start: 33-04-7539Wljuapejs encounterGiovanni MroenoCOPPER SPRINGS HOSPITAL [facility] [place]Start: 11-04-2021 End: 29-62-9578kkqmoomxibQcwiqsp Schwerer Other [employer] Other Start: 58-01-6639Rbiyfmetr encounterKaitlin Schwerer [facility] [place]Start: 10-31-2021 End: 09-94-9206jctmexodfaWsolmkh Schwerer Other [employer] Other Start: 76-89-8809Rjvavwaeg encounterKaitlin Schwerer [facility] [place]Start: 52-64-7046Vmkourayuh RecurringDO Giovanni Moreno Work Phone: [facility]-Cancer CenterStart: 10-21-2021 End: 49-81-2988Hordplj encounter procedureDO Giovanni Moreno Work Phone: [facility]-Lab [facility] Southlaketart: 10-21-2021 End: 52-84-1194mvylsuojnyCauth Carnahan Other [employer] Other Start: 86-04-5973Ciqnti outpatient visit 25 minutes Giovanni MorenoCommunity [facility] Hospital of San BuenaventurayStart: 10-03-2021 End: 66-00-2546movzpdyoysJlhwe Carnahan Other [employer] Other Start: 23-15-8729Fsdsfzhha encounterGiovanni MorenoBoston City Hospital SandgerlachyStart: 09-26-2021 End: 23-54-9786Umgaloddy to same day surgery Joanne Moreno Work Phone: [facility]-CT Scan [address] [place] Start: 09-19-2021 End: 14-95-0722nmnhiajhiqAavtc Carnahan Other [employer] Other Start: 55-27-7657Ffsgvlrwy encounterKejosé IzaguirrejewellNatan Family Medicine [place]kyStart: 08-23-2021 End: 27-15-6184gxdlxyqmzdSilylj Zaky Other [employer] Other Start: 70-79-7560Draeawved encounterStelma Loredo Referral CoordinatorStart: 08-22-2021 End: 63-94-1003ovrpdluxzmJpwvyw Zaky Other [employer] Other Start: 32-57-3866Byizhu consultation new/estab patient 60 minStelma Facundo Pain ManagementStart: 08-08-2021 End: 00-57-2938qzvywvrlweCwlpl Carnahan Other [employer] Other Start: 66-36-2409Foihwiiqg encounterKejosé IzaguirrejewellCOPPER SPRINGS HOSPITAL [facility] [place]Start: 08-07-2021 End: 47-90-5331pzulqbglsqTzand Carnahan Other [employer] Other Start: 50-61-7633Dzsuvn outpatient visit 15 minutes Giovanni MorenoCOPPER SPRINGS HOSPITAL [facility] [place]Start: 68-51-4699Tuxjlgacp encounter Giovanni IzaguirrejewellNatan Family Medicine [place]Start: 08-01-2021 End: 87-18-9094vwkymyqfomMggcp Carnahan Other [employer] Other Start: 52-07-4942Tdlzvuhio encounterKejosé IzaguirrejewellG [facility] [place]Start: 07-29-2021 End: 63-36-6815xnnmphzsfxNaasm Carnahan Other [employer] Other Start: 89-10-4984Onvgahtlv encounterKevin JoshCOPPER SPRINGS HOSPITAL [facility] Medicine [place]Start: 07-22-2021 End: 99-61-7786vtliyjiiqeVviaz Josh Other [employer] Other Start: 57-37-7128Ndnrxe outpatient visit 25 minutes Giovanni IzaguirreMass[facility] Center [facility] [place]Start: 07-03-2021 End: 28-98-3673kyplnuemykFdmsv Josh Other [employer] Other Start: 97-18-3495Oozqnzwyo encounterKevin JoshCOPPER SPRINGS HOSPITAL [facility] [place]Start: 06-25-2021 End: 40-10-6782yenzqzsftnSmrmt Josh Other [employer] Other Start: 17-35-3352Cqeodydhx encounterKevin DmitriyMassachusetts Mental Health Center Family Medicine [place]Start: 06-20-2021 End: 17-40-0058yxidfwzdhuCeuvp Josh Other [employer] Other Start: 15-62-0643Ztqqwj outpatient visit 25 minutes Giovanni MorenoCOPPER SPRINGS HOSPITAL [facility] [place]Start: 06-06-2021 End: 95-33-5518tzdlqnkhexTdngq Josh Other [employer] Other Start: 12-50-0895Xvuagohza encounterKevin JoshCOPPER SPRINGS HOSPITAL [facility] [place]Start: 06-05-2021 End: 58-19-1910taasgezhtrVrzoc Josh Other [employer] Other Start: 75-79-2388Zmovzdeef encounterKevin CarnMassachusetts Mental Health Center [facility] [place]Start: 05-23-2021 End: 62-93-6382jskzbvwphaMrnan Josh Other [employer] Other Start: 14-07-8730Kvpneaj encounter procedureKevin JoshCOPPER SPRINGS HOSPITAL [facility] Medicine [place]Start: 27-23-7555Qhloltiof encounterKevin JoshCOPPER SPRINGS HOSPITAL [facility] [place]Start: 05-15-2021 End: 36-12-4303tanpepkdybUuhui Josh Other [employer] Other Start: 83-88-3752Kxwafhdfb encounterKevin JoshCOPPER SPRINGS HOSPITAL [facility] [place]Start: 05-02-2021 End: 03-54-9779solqdhyknsSxylv Josh Other [employer] Other Start: 62-18-4616Vbgqijolq encounterKevin JoshCOPPER SPRINGS HOSPITAL [facility] [place]Start: 05-01-2021 End: 87-39-4364myrztxaefmLatan Josh Other [employer] Other Start: 11-24-8269Ggjzpa outpatient visit 15 minutes Giovanni DmitriyjewellCOPPER SPRINGS HOSPITAL [facility] [place]Start: 04-30-2021 End: 65-08-7893hbllhjsjbySkwvv Josh Other [employer] Other Start: 13-36-5614Ncxljtutx encounterKevin DmitriyMassachusetts Mental Health Center Family Medicine [place]Start: 04-29-2021 End: 12-12-3974bdzcqlqhsnBefeo Josh Other [employer] Other Start: 52-65-0755Yjcjpgkeb encounterKevin DmitriyMassachusetts Mental Health Center Family Medicine [place]Start: 04-02-2021 End: 15-23-3196txwawullfrEjcow Josh Other [employer] Other Start: 00-81-5585Hxnvqf outpatient visit 25 minutes Giovanni JoshCOPPER SPRINGS HOSPITAL [facility] Medicine [place]Start: 03-25-2021 End: 30-96-7609qvjotwlamrZpeto Carnahan Other [employer] Other Start: 45-93-0170Cdodvqklb encounterGiovanni JoshCOPPER SPRINGS HOSPITAL Family Medicine [place]Start: 03-21-2021 End: 21-08-5122jbehqwheorQdndl Carnahan Other [facility] [employer] Other Start: 85-11-5378Xfnagnlwd encounterGiovanni JoshCOPPER SPRINGS HOSPITAL Family Medicine SandephraimyStart: 03-04-2021 End: 59-03-0236cnzzdbdrdfHlirege Buehrer Other [employer] Other Start: 88-76-9636Twemnx outpatient new 45 minutes Domenico Gabriel Vascular SurgeryStart: 02-27-2021 End: 95-80-6720ojolnwrmysGdfux Carnahan Other [employer] Other Start: 34-28-7527Plqoqubnj encounterGiovanni JoshCOPPER SPRINGS HOSPITAL Family Medicine SandephraimyStart: 02-20-2021 End: 34-06-3486qfpkyfotqlLpnvr Carnahan Other [facility] [employer] Other Start: 68-50-9915Gjsafghwf encounterGiovanni IzaguirreMassachusetts Mental Health Center Family Medicine Power Procedures DateProcedureProcedure DetailPerforming ClinicianStart: 23-61-8509Olsvprah blood count with white cell differential, automatedRoxane Bills MD Work Phone: Start: 69-07-3331Gphycxacrytlk metabolic panelRoxane Bills MD Work Phone: Start: 64-67-2584Diyusjvjuszci metabolic panelRoxane Bills MD Work Phone: Start: 26-05-6651Bxjoc cultureGloria [facility] DO Work Phone: Start: 12-27-2024 End: 06-32-3915Jprau nucleic acid assayGloria [facility] DO Work Phone: Start: 63-14-6994Ackteudx screenRoxane BillsComment on above:Order Comment: communicated to JYOTSNA BRINKJENNIFERBerny Transfuse now? Y Number of units to transfuse now? 88286) Transfuse now? Y Number of units to transfuse now? 1Result Comment: PERFORMED BY:[facility] [place], [place] [id number] MEDICAL DIRECTORELAINE CHAUDHARY M.D.Start: 70-75-6990Pquzcbheqsizfkj of bilateral kidneysGloria [facility] DO Work Phone: Start: 15-12-7093Sjgxt chest X-rayGloria [facility] DO Work Phone: Start: 58-37-4892Hlrfvcpumqpkx metabolic panelRoxane Bills MD Work Phone: Start: 75-16-2994Hqovuy [facility] DO Work Phone: Start: 21-58-7542Ekhvh chest X-rayGloria [facility] DO Work Phone: Start: 28-38-0155Ajvnu dip stick/tablet rgnt non-auto w/o micrscpAenrique Bills MD Work Phone: Start: 12-21-2024 End: 50-34-4824Tunzndx bacterial blood aerobic w/id isolatesRoxane Bills MD Work Phone: Start: 04-10-8570Ojdnzvng blood count with white cell differential, automatedRoxane Bills MD Work Phone: Start: 78-54-8298Runefodmujuyy metabolic panelRoxane Bills MD Work Phone: Start: 49-48-5188Bofelyyznvyxx metabolic panelRoxane Bills MD Work Phone: Start: 65-38-7554SFONSJF ELECTRO, RANDOM URINERoxane Bills MD Work Phone: Start: 65-62-0454Uolve of magnesiumRoxane Bills MD Work Phone: Start: 91-10-2907Miolrqsa blood count with white cell differential, automatedRoxane Bills MD Work Phone: Start: 66-66-4621Hjmzlewlxirbp metabolic panelRoxane Bills MD Work Phone: Start: 78-56-8844Zfyyjhorybzth metabolic panelRoxane Bills MD Work Phone: Start: 22-81-0640Dwluapkf blood count with white cell differential, automatedRoxane Bills MD Work Phone: Start: 61-44-1434Zdflmgnhkgxsp metabolic panelRoxane Bills MD Work Phone: Start: 98-01-9695Kzak bld gluc mntr dev cleared fda spec home useAhmapao Lukas Jeff PARK Work Phone: Start: 42-63-1757Ddvbdhwe screenRoxane BillsStart: 26-79-5737Jysiuntb blood count with white cell differential, automatedRoxane Bills MD Work Phone: Start: 75-63-6721Sxbkcoxzeakji metabolic panelRoxane Bills MD Work Phone: Start: 62-65-0898Ezfnvgvke B core antibody measurement Peri Tyson DO Work Phone: Start: 38-70-4522Zriizjcta b surf antibody hbsHammad Bills MD Work Phone: Start: 50-37-1635EMZFUBYOA B SURFACE ANTIGEN ([facility])Roxane Bills MD Work Phone: Start: 55-70-5361Ayacgy Tyson DO Work Phone: Start: 74-53-5697Spbjlsuroxwjy metabolic panelRoxane Bills MD Work Phone: Start: 31-43-5755GPQXPXWKX REQUEST FOR LAB CORPRoxane Bills MD Work Phone: Start: 73-17-6374AOJLLEVHCAL PROFILERoxane Bills MD Work Phone: Start: 15-16-1896Iyozknup blood count with white cell differential, automatedRoxane Bills MD Work Phone: Start: 04-44-2886Bjjxhpxyqqmcm metabolic panelRoxane Bills MD Work Phone: Start: 52-45-3926Zbor marrow samplingProvidence Behavioral Health Hospital Work Phone: Start: 36-26-4214Pfcpjcuw blood count with white cell differential, automatedRoxane Bills MD Work Phone: Start: 20-33-1906Smtqs immunofixationProvidence Behavioral Health Hospital Work Phone: Start: 91-62-7395Bfcd bld gluc mntr dev cleared fda spec home useAhmapao Aguilar MD Work Phone: Start: 68-69-1573Lklx bld gluc mntr dev cleared fda spec home useAhmad Lukas Aguilar MD Work Phone: Start: 10-45-4625Mihzladz blood count with white cell differential, automatedRoxane Bills MD Work Phone: Start: 31-01-6637Yrgyspiskweud metabolic panelRoxane Bills MD Work Phone: Start: 91-23-7166VBJQ K+L LT CHAINS, QN, Rona Bills MD Work Phone: Start: 00-92-4100KYRYUFTAKNHYTD,SERUM ([facility])Roxane Bills MD Work Phone: Start: 56-99-6616T-ray skeletal surveyDO Peri [facility] Work Phone: Start: 01-20-2024 End: 09-27-6630Xuqu bld gluc mntr dev cleared fda spec home useJeannie Aguilar MD Work Phone: Start: 08-67-2897Jyymyozxn mammography of bilateral breastMaritaO Peri Tyson Work Phone: Start: 91-03-3426Vipwvd scan of lower limb veinsDO Peri Tyson Work Phone: Start: 90-69-3923Jkfdm volume recorder pneumoplethysmographyDO Peri Tyson Work Phone: Start: 90-29-1694Pvye marrow samplingDO Peri Tyson Work Phone: Start: 13-55-9272Bkhknlxhtk examination, osseous survey, completeDO Peri Tyson Work Phone: Start: 18-09-4027NGX of left hipDO Peri Tyson Work Phone: Start: 26-99-1699Slltlacmjxxwzwhepbd of cataract with intraocular lens implantationDO Peri Tyson Work Phone: Start: 44-24-1992RL lumbar spine wo conDO Peri Tyson Work Phone: Start: 90-28-8947Sdlbv X-ray of left hipDO Peri Tyson Work Phone: Start: 84-56-1756Tombaf scan of lower limb veinsDO Peri Tyson Work Phone: Start: 54-61-3165Tvnspqwqz mammography of bilateral breastMaritaO Peri Tyson Work Phone: Start: 23-87-4324Ugvxpx X-rayDO Peri Tyson Work Phone: Start: 56-62-3889C-ray of lumbar spine, two or three viewsDO Peri Tyson Work Phone: Start: 16-56-4198Ydqbg Joseph Moreno Work Phone: Start: 89-88-9875Ksgo marrow samplingDO Giovanni Moreno Work Phone: Start: 26-48-9910Edakocjfng examination, osseous survey, completeDO Giovanni Moreno Work Phone: Urine Joseph Moreno Work Phone: Urine Joseph Moreno Work Phone: Plan of Treatment DateCare ActivityDetailAuthorStart: 50-71-8141Qcanobqoklre Vaccine: 65+ Years (3 of 3 - PPSV23 or PCV20)Pneumococcal Vaccine: 65+ Years (3 of 3 - PPSV23 or PCV20)[facility] HealthcareStart: 03-13-2025 End: 53-10-2759Hlcxnin encounter aclsxrlmn09/01/2025 8:40 AM EST Office Visit [facility] [address] [place] [address] Mack Tsai, FRANDY [address] [facility] [place], [place] [address] [place] [address] REGINALDO Soto PodiatryStart: 03-07-2025 End: 33-31-5193Jtaejxc encounter procedureNOMS PULMStart: 03-06-2025 End: 85-60-6292Jhrzwul encounter axxtfvjcv30/24/2025 10:10 AM EST Office Visit [facility] [address] [place] [address] Jeannie Aguilar MD [address] [place] [address] [facility] Marie EndocrinologyStart: 01-17-2025 End: 76-44-5133XbueltpacACMC Healthcare Systemtart: 40-92-7466TmeblddmjACMC Healthcare Systemtart: 87-83-1441WijngmqgbACMC Healthcare Systemtart: 20-94-6219CxdvsqknzRegency Hospital Cleveland East CenterStart: 39-50-7339TtitaldvmRegency Hospital Cleveland East CenterStart: 81-05-0704FvscypgqqRegency Hospital Cleveland East CenterStart: 86-91-6913HufkazmrtRegency Hospital Cleveland East CenterStart: 95-51-1883XcwxpkvpuRegency Hospital Cleveland East CenterStart: 62-85-9326LknwqbcgoRegency Hospital Cleveland East CenterStart: 88-03-8408SncgmxtceRegency Hospital Cleveland East CenterStart: 39-73-7164Hrlknwgmfxmdlp of prophylactic treatmentRegency Hospital Cleveland East CenterStart: 99-81-9787Cfazbwcn to infectious diseases physicianACMC Healthcare Systemtart: 12-28-2024 End: 22-54-3943AqcruztvxRegency Hospital Cleveland East CenterStart: 12-27-2024 End: 02-45-3152FpeqgakzjRegency Hospital Cleveland East CenterStart: 57-21-5274NmygyfvgrRegency Hospital Cleveland East CenterStart: 12-27-2024 End: 29-25-2964TqjcvjpxnRegency Hospital Cleveland East CenterStart: 79-58-4105Jgjyjmor to oncologistRegency Hospital Cleveland East CenterStart: 05-18-6961Ooqzk culture [facility] CenterStart: 90-63-9635Ibpbxrhl admissionRegency Hospital Cleveland East CenterStart: 69-99-2451DbvhbxeeuRegency Hospital Cleveland East CenterStart: 12-21-2024 End: 23-75-5418LlsoqviwtRegency Hospital Cleveland East CenterStart: 81-00-9294ZexfmanboRegency Hospital Cleveland East CenterStart: 12-19-2024 End: 04-19-1379Qljaims encounter procedureNOMS Frank Soto PodiatryComment on above:Diabetes mellitus due to underlying condition with diabetic polyneuropathy, with long-term current use of insulin (HCC) (Primary Dx); Pain due to onychomycosis of toenails of both feet; Xerosis cutisStart: 58-23-4405MaxseanfnRegency Hospital Cleveland East CenterStart: 12-13-2024 End: 41-26-0775RsbtvqfkkRegency Hospital Cleveland East CenterStart: 13-01-2963FgyurbkhxRegency Hospital Cleveland East CenterStart: 48-90-0990QMXAG-19 Vaccine (2024- season) COVID-19 Vaccine ( season)[facility] HealthcareStart: 83-31-8054Sqrznvwyi vaccinationInfluenza Vaccine (#1)[facility]OM HealthcareStart: 12-09-2024 End: 66-33-4039Howwwug encounter procedureNOMS [place] PODStart: 58-70-6005XdhfevdedACMC Healthcare Systemtart: 56-07-5455PomqkiwerACMC Healthcare Systemtart: 99-54-9023PtgvuhzhiACMC Healthcare Systemtart: 27-26-9931ObqfzgflgACMC Healthcare Systemtart: 11-21-2024 End: 57-76-1505ItoozqphxACMC Healthcare Systemtart: 11-21-2024 End: 03-90-0522Achwqqp encounter procedureNOMS ENDOCRINOLOGYStart: 11-14-2024 End: 76-77-2769Nprizay encounter pmrzpxwse23/04/2025 9:00 AM EDT Office Visit [facility] [address] [place] [address] Jeannie Aguilar MD [address] [place] [address] ArrivedGAURAVMS Marie EndocrinologyComment on above:ArrivedStart: 11-14-2024 End: 85-92-5966XjwcrtgihACMC Healthcare Systemtart: 19-26-7536DnzqwyzmtACMC Healthcare Systemtart: 09-30-2024 End: 96-84-8108Eevgydy encounter yaqzzjrav35/20/2025 10:10 AM EDT Office Visit [facility] [address] [place] [address] Mack Tsai DPM [address] [address] Diabetes mellitus due to underlying condition with diabetic polyneuropathy, with long-term current use of insulin (HCC) (Primary Dx); Pain due to onychomycosis of toenails of both feet; Xerosis cutisNOMS SC PODComment on above:Diabetes mellitus due to underlying condition with diabetic polyneuropathy, with long-term current use of insulin ([facility]) (Primary Dx); Pain due to onychomycosis of toenails of both feet; Xerosis cutisStart: 55-82-8239HwkcmzxaqACMC Healthcare Systemtart: 09-06-2024 End: 00-57-1674Vuferni encounter gqfiwthpc83/27/2025 2:20 PM EDT Office Visit [facility] [address] [place] [address] Mack Tsai DPM [address] [address] [facility] [place] PODStart: 08-25-2024 End: 37-16-2859Pcrmzjc encounter procedureNOMADISON MEDICAL CENTER PULMComment on above:Arrived Start: 08-22-2024 End: 91-63-6112Jcogtap encounter procedureNOMADISON MEDICAL CENTER ENDOCRINOLOGYComment on above: Type 2 diabetes mellitus with hyperglycemia, with long-term current use of insulin ([facility])Start: 14-92-4303Jmphjuzpn monophosphate.cyclic [Moles/volume] in Serum or PlasmaACMC Healthcare Systemtart: 78-19-1914Htcmhsrxhb factor [Units/volume] in Serum or PlasmaACMC Healthcare Systemtart: 07-14-2024 End: 97-27-2554Knsmifa encounter mdohszqjs18/03/2025 2:00 PM EDT Office Visit [facility] [address] [place] [address] Svetlana Garcia DO [address] [place] [address] [facility] PULMStart: 06-24-2024 End: 92-95-3068Qddvdyt encounter isaexajdv58/14/2025 8:30 AM EDT Office Visit [facility] [address] [place] [address] Mack Tsai DPM [address] [address] [facility] PODStart: 05-25-2024 End: 33-44-5054Xyvcgca encounter procedureNOMADISON MEDICAL CENTER ENDOCRINOLOGYComment on above: Type 2 diabetes mellitus with hyperglycemia, with long-term current use of insulin (CMS/HCC)Start: 04-15-2024 End: 25-94-2713Xjxcygr encounter procedureNOMS SD PODComment on above:Diabetes mellitus due to underlying condition with diabetic polyneuropathy, with long- term current use of insulin (CMS/[facility]) (Primary Dx); Pain due to onychomycosis of toenails of both feetStart: 71-48-0571Sfcgswj [facility] Work Phone: Start: 02-02-2024 End: 63-01-0369Mmcmppk encounter procedureNOINTEGRIS MIAMI [facility] PODComment on above:Diabetes mellitus due to underlying condition with diabetic polyneuropathy, with long- term current use of insulin ([facility]) (Primary Dx); Pain due to onychomycosis of toenails of both feetStart: 01-20-2024 End: 83-81-5850Tomykrx encounter procedureNOMADISON MEDICAL CENTER ENDOCRINOLOGYComment on above: Type 2 diabetes mellitus with hyperglycemia, with long-term current use of insulin ([facility])Start: 01-14-2024 End: 55-33-2081Jgsnnpr encounter procedureNOMS PULMComment on above:Arrived Start: 97-57-2558Clgmryjhs vaccinationInfluenza Vaccine (#1)[facility] Start: 86-48-7844Fufjkce [facility] Work Phone: Start: 07-16-2023 End: 51-28-2096Xhueewg encounter suywtzbtk90/04/2024 1:45 PM EDT Office Visit [facility] [address] [place] [address] Svetlana Garcia DO [address] [place] [address] [facility] PULMStart: 60-97-7188VBgF/Tdap/Td Vaccines (3 - Td or Tdap)DTaP/Tdap/Td Vaccines (3 - Td or Tdap)[facility] HealthcareStart: 06-29-2023 End: 97-39-4015Agtffjc encounter /18/2024 8:40 AM EDT Office Visit [facility] [address] [place] [address] Mack Tsai DPM [address] [address] [facility] [place] PODStart: 29-03-5048Qamvvf scan of lower limb veinsUS venous duplex LE [facility] Cantontart: 93-23-4493ZW Lower extremity vein - bilateralACMC Healthcare Systemtart: 02-12-2023 End: 27-28-5261XrvsdazsxACMC Healthcare Systemtart: 12-18-2022 End: 66-23-1134WtrhopjhkRegency Hospital Cleveland East CenterStart: 36-39-3981Cgmfsdu C- peptide measurementACMC Healthcare Systemtart: 12-17-1126GlpvyxubqRegency Hospital Cleveland East CenterStart: 07-24-0384WttybfqxcACMC Healthcare Systemtart: 33-00-6103WxnozvucaACMC Healthcare Systemtart: 07-36-4463RhaxkbleqACMC Healthcare Systemtart: 09-26-2021 End: 58-01-3375IouugyweyOhiohealth Grove [facility] Work Phone: Start: 11-10-8449Qzhjohgcv for malignant neoplasm of breastMammogramNOMS HealthcareStart: 31-26-5277Hxkyreoey for malignant neoplasm of cervixNOMS HealthcareStart: 45-73-4427Hwvfmotio for malignant neoplasm of cervixPap SmearNOMS HealthcareStart: 45-57-5146KYH Vaccines (1 of 1 - Standard series)MMR Vaccines (1 of 1 - Standard series)[facility] HealthcareStart: 1960 Screening for malignant neoplasm of colonNOMS HealthcareAdenosine monophosphate.cyclic [Moles/volume] in Serum or PlasmaMercy HealthAlbumin [Mass/volume] in Serum or PlasmaMercy Health Albumin [Mass/volume] in Serum or PlasmaMercy Health Albumin/Globulin ratioMercy HealthAlbumin/Globulin ratio Mercy HealthAlbumin/Globulin ratioMercy HealthAnion gap measurementMercy HealthAnion gap measurementMercy HealthBacteria identified in Blood by [facility] Work Phone: Bacteria identified in Urine by CultureMercy HealthBasophils [#/volume] in Blood by Automated countMercy HealthBasophils [#/volume] in Blood by Automated count Mer[facility] HealthBasophils/100 leukocytes in Blood by Automated countMercy HealthBasophils/100 leukocytes in Blood by Automated countMercy HealthBone marrow samplingMercy HealthCBC W Auto Differential panel - BloodCBC auto differential Lab STAT 11/28/2024 11:25 AM [facility] Work Phone: cbc W Auto Differential panel - BloodCBC auto differential Lab STAT 12/13/2024 8:57 AM [facility] Work Phone: cbc W Auto Differential panel - BloodCBC auto differential Lab STAT 12/26/2024 10:05 AM [facility] Work Phone: cbc W Auto Differential panel - BloodCBC auto differential Lab Routine 01/17/2025 2:15 PM [facility] Work Phone: Comprehensive metabolic 1999 panel - Serum or Plasma [facility] Work Phone: Comprehensive metabolic 1999 panel - Serum or Plasma Mer[facility] HealthComprehensive metabolic 1999 panel - Serum or [facility] SystemComprehensive metabolic 1999 panel - Serum or PlasmaMercy HealthComprehensive metabolic 1999 panel - Serum or [facility] SystemComprehensive metabolic 1999 panel - Serum or PlasmaComprehensive metabolic panel Lab Routine 08/23/2024 11:34 AM [facility] Work Phone: Comprehensive metabolic 1999 panel - Serum or Plasma Mer[facility] HealthComprehensive metabolic 1999 panel - Serum or [facility] SystemComprehensive metabolic 1999 panel - Serum or [facility] SystemComprehensive metabolic 1999 panel - Serum or [facility] SystemComprehensive metabolic 1999 panel - Serum or [facility] SystemComprehensive metabolic 1999 panel - Serum or [facility] Comprehensive metabolic 2000 panel - Serum or [facility] SystemDrugs identified in UrineRegency Hospital Cleveland East Ctr Work Phone: DXA Skeletal system.axial Views for bone density Mercy HealthEKG 12 channel [facility] CenterElectrophoresis: qawti-8-bjtbqefsLtkjifvuxMercy Health Electrophoresis: bniuo-8-fiibmglrJekgzxzvfMercy Health Electrophoresis: zmyio-4-zyxnbfunUdsxsqtbyMercy Health Electrophoresis: dfojw-9-qjjwrsueBsudoamaeMercy Health Electrophoresis: beta-globulinMercy HealthElectrophoresis: beta-globulinMercy HealthElectrophoresis: gamma globulin Mercy HealthElectrophoresis: gamma globulinMercy HealthEosinophils/100 leukocytes in Blood by Automated count Mer[facility] HealthEosinophils/100 leukocytes in Blood by Automated [facility] GeneralErythrocyte distribution width [Ratio] by Automated [facility] GeneralErythrocyte distribution width [Ratio] by Automated [facility] Erythrocytes [#/volume] in [facility] HospitalErythrocytes [#/volume] in [facility] Memorial HospitalFerritin [Mass/volume] in Serum or [facility] Work Phone: Ferritin [Mass/volume] in Serum or [facility] Health SystemGlobulin [Mass/volume] in [facility] AndersonGlobulin [Mass/volume] in [facility] AndersonGlobulin [Mass/volume] in [facility] AndersonGlomerular filtration rate [Volume Rate/Area] in Serum, Plasma or Blood by [facility] Health CenterGlomerular filtration rate [Volume Rate/Area] in Serum, Plasma or Blood by [facility] CenterHematocrit [Volume Fraction] of [facility] Memorial HospitalHematocrit [Volume Fraction] of [facility] Memorial HospitalHemoglobin [Mass/volume] in Blood Mercy HealthHemoglobin [Mass/volume] in [facility] HospitalIgA [Mass/volume] in Serum or [facility] Health SystemIgA [Mass/volume] in Serum or [facility] SystemIgG [Mass/volume] in Serum or [facility] SystemIgG [Mass/volume] in Serum or [facility] SystemIgM [Mass/volume] in Serum or [facility] Health SystemIgM [Mass/volume] in Serum or [facility] SystemIron and Iron binding capacity panel - Serum or PlasmaIron and TIBC Lab Routine 08/23/2024 11:34 AM [facility] light chains.free [Mass/volume] in Serum Mercy HealthKapp light chains.free [Mass/volume] in Serum Mercy HealthKapp light chains.free/Lambda light chains.free [Mass Ratio] in SerumMercy HealthKapp light chains.free/Lambda light chains.free [Mass Ratio] in [facility] AndersonLactate dehydrogenase [Enzymatic activity/volume] in Serum or Plasma by Lactate to pyruvate reactionLactate dehydrogenase Lab Routine 08/23/2024 11:34 AM [facility] HospitalLambda light chains.free [Mass/volume] in Serum or Memorial Health SystemLambda light chains.free [Mass/volume] in Serum or [facility] SystemLeukocytes [#/volume] corrected for nucleated erythrocytes in Blood by Automated [facility] SystemLeukocytes [#/volume] corrected for nucleated erythrocytes in Blood by Automated [facility] Leukocytes [#/volume] in [facility] HospitalLeukocytes [#/volume] in [facility] HospitalLymphocytes [#/volume] in Blood by Automated [facility] GeneralLymphocytes [#/volume] in Blood by Automated [facility] GeneralLymphocytes/100 leukocytes in Blood by Automated [facility] Lymphocytes/100 leukocytes in Blood by Automated [facility] GeneralMCH [Entitic mass] by Automated [facility] GeneralMCH [Entitic mass] by Automated [facility] GeneralMCHC [Mass/volume] by Automated [facility] GeneralMCHC [Mass/volume] by Automated [facility] GeneralMCV [Entitic volume] by Automated [facility] GeneralMCV [Entitic volume] by Automated [facility] GeneralMonocytes [#/volume] in Blood by Automated [facility] GeneralMonocytes [#/volume] in Blood by Automated [facility] GeneralMonocytes/100 leukocytes in Blood by Automated [facility] Monocytes/100 leukocytes in Blood by Automated [facility] GeneralNeutrophils [#/volume] in Blood by Automated [facility] GeneralNeutrophils [#/volume] in Blood by Automated [facility] GeneralNeutrophils/100 leukocytes in Blood by Automated count Mercy HealthNeutrophils/100 leukocytes in Blood by Automated [facility] GeneralNucleated erythrocytes [Presence] in Blood by Automated [facility] GeneralNucleated erythrocytes [Presence] in Blood by Automated [facility] GeneralPatient EducationRegency Hospital [facility] East Ctr Work Phone: Patient referralRegency Hospital [facility] East Ctr Work Phone: Platelet mean volume [Entitic volume] in Blood by Automated [facility] GeneralPlatelet mean volume [Entitic volume] in Blood by Automated [facility] GeneralPlatelets [#/volume] in BloodMercy HealthPlatelets [#/volume] in [facility] Memorial HospitalProtein [Mass/volume] in Serum or Plasma Mercy HealthProtein [Mass/volume] in Serum or Plasma Mercy HealthProtein electrophoresis, serumProtein electrophoresis, serum Lab Routine 08/23/2024 11:34 AM [facility] Work Phone: Protein electrophoresis, serumProtein electrophoresis, serum Lab STAT 12/06/2024 11:25 AM [facility] Work Phone: Protein electrophoresis, serumProtein electrophoresis, serum Lab Routine 02/06/2025 10:35 AM [facility] Work Phone: Radiologic examination osseous survey [facility] HospitalRadiologic examination osseous survey [facility]illicothe HospitalRheumatoid factor [Units/volume] in Serum or Plasma A[facility] Healthcare Systemerum immunofixationMercy HealthUS Heart TransthoracicMercy HealthXR Chest 2 Views Mercy HealthXR Lumbar spine 2 or 3 ViewsMercy HealthXR Pelvis 1 or 2 [facility] Immunizations Immunization DateImmunizationNotesCare CpfoxunqGwgbdimb70-50-3354ZXJ, preF3, adj, pfChristopher [facility] DO Work Phone: [facility]09-05-2024Seasonal trivalent influenza vaccine, adjuvanted, preservative freeChristopher [facility] DO Work Phone: [facility]09-05-2024influenza virus vaccine, unspecified formulationDignity Health Arizona Specialty Hospitaljose [facility] DO Work Phone: [facility] CareSfxrcrmoiz54-32-3233Fbfyho-Lid documentation purposes onlyGloria Tyson Other [facility]10-03-2023tetanus toxoid, reduced diphtheria toxoid, and acellular pertussis vaccine, adsorbedDO Peri [facility] Work Phone: [facility]09-28-2023COVID-19 (PFIZER) 12Y and olderDO Peri [facility] Work Phone: [facility]09-05-2023Hepatitis B vaccine (recombinant), CpG adjuvantedDO Peri Tyson Work Phone: [facility]09-01-2023influenza, injectable, quadrivalent, preservative freeGloria Tyson Other [facility]09-01-2023influenza virus vaccine, unspecified formulationMack Tsai DPM Work Phone: [facility] CareZegelxwhbc41-83-5182qcayzveea, injectable, quadrivalent, preservative freeMack Tsai DPM Work Phone: [facility] CareSbvaeeblyl52-75-9456Ljseuspgf B vaccine (recombinant), CpG adjuvantedMack Tsai DPM Work Phone: [facility] CareHqhzrzrfca39-28-4431Oygiiahtchlj Conjugate PCV 20 Mack Brown DPM Work Phone: [facility] CareTbldypruow84-21-8213XVWJP-40 Pfizer (bivalent) Peri Tyson Other [facility]09-14-2022Influenza, injectable, Madin Rocklin Canine Kidney, preservative free, quadrivalentMack Tsai DPM Work Phone: [facility] CareGjpelyyozp29-61-5522bibofmn toxoid, reduced diphtheria toxoid, and acellular pertussis vaccine, adsorbedGlanh Tyson Other [employer] Other [id number], seasonal, injectableGloria Marbella Other [facility]07-18-2022COVID-19 Vaccine Moderna - Documentation Purposes OnlyGlanh Tyson Other [facility]07-18-2022 pneumococcal polysaccharide vaccine, 23 valentGlanh Tyson Other [employer] Other [id number]-99 mRNA-1273 (Moderna)DO Giovanni Josh Work Phone: [facility]11-30-2021COVID-19 Vaccine Moderna - Documentation Purposes OnlyGiovanni Moreno Other [facility]11-29-2021Moderna SARS-CoV-2 Booster VaccinationMack Tsai DPM Work Phone: [facility] CareTxsuxgmbrw27-28-1820ULGVB-22 mRNA-1273 (Moderna) DO Giovanni Moreno Work Phone: [facility]10-01-2021Flu Vaccine - AdultDO Periluis Tyson Work Phone: [facility]10-01-2021influenza, seasonal, injectableDO Giovanni Moreno Work Phone: [facility]10-01-2021Gloria Marbella DO Work Phone: [phone] [place], [place] [address]-23-2021influenza, seasonal, injectableGiovanni Moreno Other [facility]09-23-2021Influenza, injectable, Madin Rocklin Canine Kidney, preservative free, quadrivalentNickaleb Tsai DPM Work Phone: [facility] CareNuzqkwbmlb84-00-1105ddlwda vaccine recombinant Giovanni Moreno Other [employer] Other [id number] vaccine recombinantGiovanni Izaguirreahan Other [employer] Other [id number] polysaccharide vaccine, 23 valentKevin Josh Other [employer] Other [id number]-20 Vaccine Pfizer - Documentation Purposes OnlyGiovanni Izaguirreahan Other [facility]04-01-2021COVID-19 mRNA-1273 (Moderna)DO Giovanni Moreno Work Phone: [facility]03-25-2021COVID-19 Vaccine Pfizer - Documentation Purposes DawnaGiovanni Josh Other [facility]10-05-2020influenza, injectable, quadrivalent, preservative freeNicholas Brown DPM Work Phone: [facility] CareEwqinhkped35-68-8150Bcjbqtofb, injectable, Madin Rocklin Canine Kidney, preservative free, quadrivalentNicholas Brown DPM Work Phone: [facility] CareDflsbjcrit67-80-6150wroliclphxtm conjugate vaccine, 13 valNeil Moreno Other [employer] Other [id number], injectable, Madin Nkechi Canine Kidney, quadrivalent with preservativeNicholas Brown DPM Work Phone: [facility] CareGphrkyzdvm31-73-6508jlxuzqkpi, injectable, quadrivalent, contains preservativeNicholas Brown DPM Work Phone: [facility] CareQfopiyxdsb62-97-5054drayvmydxtuk polysaccharide vaccine, 23 valentNicholas Brown DPM Work Phone: [facility] CareLybovpcbid83-51-3981oktjcijgs virus vaccine, whole virusNicholas Brown DPM Work Phone: [facility] CareOpcdnrrqbr70-15-8549kkubndngocnb polysaccharide vaccine, 23 valentNicholas Brown DPM Work Phone: [facility] Payers DatePayer CategoryPayerPolicy [id number] Health [id number] MedicareAETNA MEDICARE ADVANTAGE AETNA MEDICARE REPLACEMENT [id number] 2023-Present [address] [place] [address] [id number]-vux [id number] Health Insurance [id number] [id number] 2.16.840.2.34948[id number] 2.16.840.1.498948.[id number] 2.16.840.1.866573.3.57[id number] 2.16.840.1.479661.3.57[id number] 2.16.840.1.492484.3.57[id number] 2.16.840.1.911896.3.57[id number] 2.16.840.1.795981.3.57[id number] 2.16.840.1.028122.3.57[id number] 2.16.840.1.344794.3.57[id number] 2.16.840.1.315118.3.57[id number] 2.0.1.081212.3.57[id number] 2.0.1.747158.3.57[id number] 2.0.1.065441.3.57[id number] 2.0.1.286683.3.57[id number] 2.0.1.819001.3.57[id number] 2.0.1.687779.3.57[id number] 2.0.1.6812[id number] 2.840.1.271[id number] 2.840.1.773829.3.579.2.531 [id number] 2.0.1.9[id number] 2.0.1.77[id number] 2.0.1.422889.3.579.2.531 [id number] 2.0.1.841858.3.579.2.531 Social History DateTypeDetailFacilityStart: 04-20-2023 End: 67-96-7543Wqo Assigned At [facility] userfox Other Start: 10-23-2021 End: 61-00-7594Fjvcclr smoking status NHISNever smoked tobacco (finding) [facility]: 39-78-5394Yao Assigned At BirthFemale [facility]art: 25-00-7596Nhijpsg use and exposure Smokeless tobacco non-userNOMS HealthcareStart: 04-20-2023 End: 77-31-7157Mvaxgiz intakeLifetime non-drinker (finding)[facility] HealthcareStart: 04-20-2023 End: 97-13-8284Ujytkua of Social functionNOMS HealthcareStart: 65-31-9260Eiboboj CommentCaffeine intake: 2-3 cups per dayNOCT HealthcareStart: 60-83-5744Bhm Assigned At BirthNot on fileNOCT HealthcareStart: 02-29-2024 End: 52-70-5395SwdGadstz (finding)[facility]art: 16-79-8512Qnbibzp smoking status NHISEx-smoker (finding)[facility] System[facility]: 59-35-3878AfwugmfnbReg[facility] Work Phone: Start: 34-47-5520DhsYtorwpANKS HealthcareNEGATED: Highlighted rowStart: NINFHistory of tobacco usePassive smokerNOCT Healthcare Medical Equipment Procedure CodeEquipment CodeEquipment Original TextEquipment IdentifierDates Phacoemulsification of cataract with intraocular lens implantationLENS ACRYSOF IOL [id number]: 39-71-1198Wlqdoyemwqgpecfkezt of cataract with intraocular lens implantationLENS ACRYSOF IOL [id number]: 03-68-5951Cwxnfgdwuazpodyupox of cataract with intraocular lens implantationLENS ACRYSOF IOL [id number]: 94-21-4668Mkicaplsygoyuibznmf of cataract with intraocular lens implantationLENS ACRYSOF IOL [id number]: 75-38-6601Slgmrlfdyudvpwxzruc of cataract with intraocular lens implantationLENS ACRYSOF IOL [id number]: 10-22-2017 Phacoemulsification of cataract with intraocular lens implantationLENS ACRYSOF IOL [id number]: 22-37-6931Kpqvtvtxbdlxiektwwo of cataract with intraocular lens implantationLENS ACRYSOF IOL [id number]: 47-92-5285Dvbjyeszhphimhqxzaf of cataract with intraocular lens implantationLENS ACRYSOF IOL [id number]: 34-94-4671Fdpgusiezchuezdhrqp of cataract with intraocular lens implantationLENS ACRYSOF IOL [id number]: 21-54-6096Prgarljmzezmdslwdub of cataract with intraocular lens implantationLENS ACRYSOF IOL [id number]: 10-22-2017 Phacoemulsification of cataract with intraocular lens implantationLENS ACRYSOF IOL [id number]: 46-27-8162Mzywhrzhuhirjsnbcfx of cataract with intraocular lens implantation()[id number] FDAStart: 74-12-7557Refotgzdmxbfxmjzffr of cataract with intraocular lens implantationLENS ACRYSOF IOL TO94U2SURMsbrb: 72-53-0568Jwoihtybsvqzjudnddd of cataract with intraocular lens implantationLENS ACRYSOF IOL [id number]: 10-22-2017 Phacoemulsification of cataract with intraocular lens implantationLENS ACRYSOF IOL [id number]: 53-92-1321Wkxlwsarsyirsktjdtz of cataract with intraocular lens implantationLENS ACRYSOF IOL AL05Z1GUCYimgs: 40-87-3305Ilodkkxvnwxgznzdddp of cataract with intraocular lens implantationLENS ACRYSOF IOL XG12U9GXLVskdv: 04-93-6375Iixzkatntrdlaxbkryl of cataract with intraocular lens implantationLENS ACRYSOF IOL VV31O7UCZOnqgk: 06-90-6414Bhebpzwiokeardrpcuv of cataract with intraocular lens implantationLENS ACRYSOF IOL MN15H7ESBIuvrs: 10-22-2017 Phacoemulsification of cataract with intraocular lens implantationLENS ACRYSOF IOL [id number]: 25-27-7012Ychipoybbwrozoyqrmr of cataract with intraocular lens implantationLENS ACRYSOF IOL [id number]: 20-49-8400Dctxpikykgnipldsmrv of cataract with intraocular lens implantationLENS ACRYSOF IOL UG15L6ZEZTyxlp: 98-81-0364Fhdwtxrivncgitstszm of cataract with intraocular lens implantationLENS ACRYSOF IOL UH63G9OVTDtnyi: 24-48-5347Vcsjpdihherywwuurfa of cataract with intraocular lens implantationLENS ACRYSOF IOL VZ39P9JRORbdro: 10-22-2017 Phacoemulsification of cataract with intraocular lens implantationLENS ACRYSOF IOL RK05E1ESKSqmmj: 73-78-4223Xgfmkxardfowffghbxi of cataract with intraocular lens implantationLENS ACRYSOF IOL [id number]: 25-39-4591Zigpsqrlrttkkjenhua of cataract with intraocular lens implantationLENS ACRYSOF IOL UK88B2PVENgffe: 89-21-3519Nifnhcifebbiwpmbwgs of cataract with intraocular lens implantationLENS ACRYSOF IOL UN60I3IAOGmmyn: 72-86-7385Cpxhclfcffigkuurujb of cataract with intraocular lens implantationLENS ACRYSOF IOL GL79B3UZVZmnbf: 10-22-2017 Phacoemulsification of cataract with intraocular lens implantationLENS ACRYSOF IOL VX78K3IOXHsddq: 03-49-1791Himjtdzqauzyfkhnwqh of cataract with intraocular lens implantationLENS ACRYSOF IOL GV74A9KXABmeqk: 74-87-0625Moqefzjmazntdpptwxw of cataract with intraocular lens implantationLENS ACRYSOF IOL VM38J9AFWPcygj: 28-20-6787Waajfmeurqnpbspnyvk of cataract with intraocular lens implantationLENS ACRYSOF IOL FN77G5CLBOmfow: 12-85-3276Cciknflxwoiopmcpnvd of cataract with intraocular lens implantationFDAStart: 31-21-3019Tjvpvaguuuhtikyskth of cataract with intraocular lens implantationFDAStart: 53-50-8364Gkevehuhbspuiqrdxyj of cataract with intraocular lens implantationFDAStart: 10-22-2017 Phacoemulsification of cataract with intraocular lens implantationFDAStart: 04-97-2615Fdzlabubseqrvonobgj of cataract with intraocular lens implantationFDA Start: 27-33-1994Lbyxzqumwcwmkwdlbea of cataract with intraocular lens implantationFDAStart: 45-99-4687Wxljgbuhhenbhmyjrbg of cataract with intraocular lens implantationLENS ACRYSOF IOL [id number]: [id number], [id number] Start: 08-07-2021 End: 11-15-2025 Goals DatePatient GoalDesired Activity/State Functional Status ElylWffxuvlfujWalrzpXptjwqwr65-24-3613Ilywahkygk statusPatient at Baseline [facility] Work Phone: Mental Status CchwAjiusyccbfPganbaEfsmdodq31-46-8927Ytbwlybpd functionPatient at Baseline [facility] Work Phone: Clinical Notes 02-27-2021 to 12-27-2024 Note Date & HwkpRicaOuhugwua41-50-9769 History and physical note Author Margarito Rajan [facility] Date/TimeSeptember 2024 4:39pm [place] [address] Hospitalist H&P Signed Patient: Kelsea Turcios MR#: [id number] : 1960 Acct:[id number] Age/Sex: 64 / F Adm Date: 5 Loc: ER Room: Type: [facility] ER Attending Dr: Copies to: MD Peri Steve, DO Margarito Rajan MD~ HPI DATE OF EXAMINATION: 12/27/24 CHIEF COMPLAINT: fevers with thrombocytopenia HISTORY OF PRESENT ILLNESS: Kelsea Turcios is a 64 y/o F, h/o HTN, CKD IIIb, COPD on 3-5 L baseline NC, 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 Bills's office due to profound thrombocytopenia, prompting request for medical admission. On assessment at bedside in the emergency room, patient resting comfortably in bed, has had spontaneous nosebleed few days ago but no other complaints of bleeding or bruising, does note recurrent fevers for the past few weeks as notedby Dr. Bills, with reduced appetite for the past week. F/u with heme/onc today showed low platelets prompting presentation, has had burning in urine for the past week. Denies any chest pain, nausea, vomiting, diarrhea. In the emergency room, WBC 1.8 with 33% neutrophils, hemoglobin 11.6, platelet count 5 on repeat. BMP shows sodium 131, potassium 4, BUN 38, creatinine 2.3, glucose 194. Chest x-ray clear without evidence of consolidation or infiltrates. Urine analysis shows 10-19 WBCs, leukocyte esterase 2+. Renalultrasound ordered and showed no evidence of pyelonephritis or hydronephrosis. Review of Systems Review of Systems All other systems reviewed & are negative unless noted below or in HPI [facility] Medical History (Updated 12/27/24 @ 16:36 by Margarito Rajan MD) UTI (urinary tract infection) Multiple myeloma Morbid (severe) obesity due to excess calories Acute hyperkalemia Hyperkalemia Hallucinations, visual Epigastric pain Bipolar disorder with depression Chronic depression Morbid obesity Acute metabolic encephalopathy Diabetes Hypomagnesemia Elevated troponin Rhabdomyolysis PETER (acute kidney injury) Dehydration Ulcer of right lower leg Ulcer of left lower leg Inflammation Obesity Stage 3b chronic kidney disease Sciatica of left side Sacroiliitis Peptic ulcer disease Lumbago with sciatica, left side Kidney disease Gout Claudication of both lower extremities Anemia Acquired lymphedema of lower extremity Spinal stenosis Sleep apnea TANYA (obstructive sleep apnea) Neuropathy Hypertension GERD (gastroesophageal reflux disease) Asthma Arthritis Anxiety Venous insufficiency PTSD (post-traumatic stress disorder) Depression Neuropathy Arthritis History of cataract bilateral CKD (chronic kidney disease), stage IV Irritable bowel disease Wound of right leg Anxiety COPD (chronic obstructive pulmonary disease) Spinal stenosis Hypertension On home oxygen therapy 4-5 L nasal cannula Sleep apnea cpap Asthma Nausea Diarrhea GERD (gastroesophageal reflux disease) Abdominal pain Diabetes Surgical History S/P sclerotherapy of varicose veins venaseal lt leg 2023 H/O cataract extraction right H/O: section x 4 Hx of cholecystectomy History of hysterectomy H/O foot surgery bilateral Family History Son Hypertension Sister Hypertension Colon polyp Grandparent Malignant neoplasm of breast Grandparent Leukemia Brother Diabetes Brother Diabetes Legacy FamHx Relation: Brother(s) Hypertension Legacy FamHx Relation: Brother(s) Brother Hypertension Legacy FamHx Relation: Brother(s) Father Family/Other Legacy FamHx Problem: father, --natural causes:mother, --alcoholism:1 brother, --complications from covid:1 son, --ATV accident Grandparent Cancer Legacy FamHx Relation: Maternal Grand Father; Legacy FamHx Problem: Diagnosed with Cancer Leukemia Legacy FamHx Relation: Maternal Grand Father Grandparent Malignant neoplasm of breast Legacy FamHx Relation: Maternal Grand Mother Mother Son Hypertension Diabetes Sister Diabetes Hypertension Sister Hypertension Social History Smoking Status: Former smoker Substance Use Type: None Social History Comments: 1 son lives with her and spouse Meds Medications and Allergies Allergies codeine Allergy (Unknown, Verified 12/27/24 05:08) Rash, itching honey Allergy (Unknown, Verified 12/27/24 05:08) Hives, anaphylaxis morphine Allergy (Unknown, Verified 12/27/24 05:08) Gastrointestinal Upset tramadol Allergy (Unknown, Verified 12/27/24 05:08) Hallucinating, hallucinations Home Medications budesonide-formoterol HFA 160 mcg-4.5 mcg/actuation aerosol inhaler (Symbicort) 2 puff inhalation BID 01/24/18 [History Confirmed 12/27/24] hydrocodone 5 mg-acetaminophen 325 mg tablet 5 mg PO TID PRN Back Pain 01/24/18 [History Confirmed 12/27/24] oxybutynin chloride 10 mg tablet,extended release 24 hr 10 mg PO QAM 01/24/18 [History Confirmed 12/27/24] albuterol sulfate 90 mcg/actuation aerosol inhaler (ProAir HFA) 1 puff inhalation Q4H PRN Wheezing 07/29/21 [History Confirmed 12/27/24] hydroxyzine HCl 10 mg tablet 10 mg PO TID 07/29/21 [History Confirmed 12/27/24] ipratropium 0.5 mg-albuterol 3 mg (2.5 mg base)/3 mL nebulization soln 3 ml inhalation Q6H PRN Wheezing 07/29/21 [History Confirmed 12/27/24] levomilnacipran 120 mg capsule,24 hr,extended release (Fetzima) 120 mg PO QAM depression 07/29/21 [History Confirmed 12/27/24] levothyroxine 75 mcg tablet 50 mcg PO QAM 07/29/21 [History Confirmed 12/27/24] mirtazapine 30 mg tablet (Remeron) 30 mg PO QHS 07/29/21 [History Confirmed 12/27/24] insulin glargine 100 unit/mL (3 mL) subcutaneous pen (Basaglar KwikPen U-100 Insulin) 40 unit subcut QHS 08/16/21 [History Confirmed 12/27/24] insulin lispro-aabc 100 unit/mL subcutaneous pen (Lyumjev KwikPen U-100 Insulin)40 unit subcut TID.AC 12/05/22 [History Confirmed 12/27/24] triamcinolone acetonide 0.1 % topical ointment 1 applic topical BID 2 weeks #30 grams 04/28/23 [Rx Confirmed 12/27/24] comp.stocking,thigh,long,large #2 ea 05/27/23 [Rx Confirmed 12/21/24] comp.stocking,thigh,long,large #2 ea 05/27/23 [Rx Confirmed 12/21/24] clonidine HCl 0.1 mg tablet 0.1 mg PO BID 07/01/23 [History Confirmed 12/27/24] gabapentin 300 mg capsule 600 mg PO DAILY 07/01/23 [History Confirmed 12/27/24] tizanidine 4 mg tablet (Zanaflex) 6 mg PO HS 07/01/23 [History Confirmed 12/27/24] zonisamide 25 mg capsule 25 mg PO DAILY 07/01/23 [History Confirmed 12/27/24] carboxymethylcellulose sodium 0.5 % eye drops (Refresh Tears) See Rx Instructions .Route .COMPLEX #15 mL 10/09/23 [Rx Confirmed 12/27/24] flash glucose sensor (FreeStyle Alfredo 2 Sensor kit) #6 ea 02/01/24 [Rx Confirmed 12/21/24] amlodipine 10 mg tablet See Rx Instructions .Route .COMPLEX #90 tabs 03/07/24 [Rx Confirmed 12/27/24] dapagliflozin propanediol 5 mg tablet (Farxiga) 5 mg PO QAM #90 tabs 03/07/24 [Rx Confirmed 12/27/24] duloxetine 60 mg capsule,delayed release See Rx Instructions .Route .COMPLEX #90caps 04/20/24 [Rx Confirmed 12/27/24] omeprazole 40 mg capsule,delayed release See Rx Instructions .Route .COMPLEX #90caps 07/18/24 [Rx Confirmed 12/27/24] semaglutide 0.25 mg or 0.5 mg (2 mg/3 mL) subcutaneous pen injector (Ozempic) 0.5 mg subcut QWEEK 08/31/24 [History Confirmed 12/27/24] sucralfate 1 gram tablet See Rx Instructions .Route .COMPLEX #180 tabs 09/06/24 [Rx Confirmed 12/27/24] carvedilol 25 mg tablet See Rx Instructions .Route .COMPLEX #180 tabs 09/28/24 [Rx Confirmed 12/27/24] furosemide 40 mg tablet See Rx Instructions .Route .COMPLEX #135 tabs 10/17/24 [Rx Confirmed 12/27/24] ondansetron 8 mg disintegrating tablet 8 mg PO Q8H PRN Nausea #30 tabs 10/27/24 [Rx Confirmed 12/27/24] dicyclomine 20 mg tablet See Rx Instructions .Route .COMPLEX #270 tabs 11/03/24 [Rx Confirmed 12/27/24] insulin aspart U-100 100 unit/mL (3 mL) subcutaneous pen (Novolog FlexPen U-100 Insulin aspart) subcut 11/14/24 [History Confirmed 12/21/24] magnesium oxide 400 mg (241.3 mg magnesium) tablet 400 mg PO DAILY #30 tabs 11/29/24 [Rx Confirmed 12/27/24] calcium carbonate 600 mg PO DAILY #30 tabs 12/07/24 [Rx Confirmed 12/27/24] cholecalciferol (vitamin D3) 50 mcg (2,000 unit) capsule 50 mcg PO DAILY #30 caps 12/07/24 [Rx Confirmed 12/27/24] acyclovir 400 mg tablet 400 mg PO BID 30 days #60 tabs 12/21/24 [Rx Confirmed 12/27/24] Revlimid 25 mg capsule (lenalidomide) 25 mg PO DAILY #21 caps 12/26/24 [Rx Confirmed 12/27/24] Held on 12/27/24. Instructions: Hold per Dr. Bills Exam Physical Exam Vital Signs: Temp Pulse Resp BP Pulse Ox O2 Del Method O2 Flow Rate 98.4 F 72 18 100/50 L 95 Nasal Cannula 5 12/27/24 10:39 12/27/24 10:29 12/27/24 10:29 12/27/24 10:29 12/27/24 10:29 12/27/24 10:29 12/27/24 10:29 Narrative: General: cooperative, tired appearing Orientation: alert, awake and oriented x3 Head: normal to inspection Neck: normal visual inspection Cardio: no JVD, regular rate, regular rhythm Chest palpation & inspection: normal inspection of the chest Resp Effort & Inspection: normal respiratory effort Abd: soft, non-tender, non-distended Extremities: Warm well perfused, no edema Results - Hospitalist H&P Lab Results Labs: Laboratory Last Values Corrected WBC 1.8 X10E3/uL (3.8-11.6) L 12/27/24 05:21 Uncorrected WBC Count 1.8 x10E3/uL (3.8-11.6) L 12/27/24 05:21 RBC 3.97 x10E6/uL (3.60-5.00) 12/27/24 05:21 Hgb 11.6 g/dL (11.8-15.4) L 12/27/24 05:21 Hct 34.7 % (34.0-46.4) 12/27/24 05:21 MCV 87.3 fl (80-100) 12/27/24 05:21 MCH 29.3 pg (24.7-34.3) 12/27/24 05:21 MCHC 33.5 g/dL (32.0-35.0) 12/27/24 05:21 RDW 15.0 % (11.9-15.3) 12/27/24 05:21 Plt Count 5 x10E3/uL (150-450) L* 12/27/24 05:21 MPV 12.1 fl (6.3-10.7) H 12/27/24 05:21 Neut % (Auto) 33.3 % (.) 12/27/24 05:21 Lymph % (Auto) 44.4 % (.) 12/27/24 05:21 [place] % (Auto) 10.0 % (.) 12/27/24 05:21 Eos % (Auto) 11.8 % (.) 12/27/24 05:21 Baso % (Auto) 0.5 % (.) 12/27/24 05:21 Nucleat RBC Rel Count 0.2 /100 WBC (0-0.5) 12/27/24 05:21 Neut # (Auto) 0.6 x10E3/uL (1.8-7.7) L 12/27/24 05:21 Lymph # (Auto) 0.8 x10E3/uL (1.00-4.8) L 12/27/24 05:21 [place] # (Auto) 0.2 x10E3/uL (0.0-0.8) 12/27/24 05:21 Eos # (Auto) 0.2 x10E3/uL (0.0-0.45) 12/27/24 05:21 Baso # (Auto) 0.0 x10E3/uL (0.0-0.2) 12/27/24 05:21 Monocyte Dist Width 44.69 % (0.00-20.00) H 12/27/24 05:21 Platelet Estimate Decreased (Normal) 12/27/24 05:21 Plt Morphology Comment Normal (Normal) 12/27/24 05:21 RBC Morphology N/A 12/27/24 05:21 Polychromasia Slight 12/27/24 05:21 Poikilocytosis Slight 12/27/24 05:21 Anisocytosis Slight 12/27/24 05:21 Ovalocytes Slight 12/27/24 05:21 PT 15.1 Seconds (9.0-12.9) H 12/27/24 09:10 INR 1.3 12/27/24 09:10 APTT 26.2 Seconds (25.1-36.5) 12/27/24 09:10 Fibrinogen 291 mg/dL (200-393) 12/27/24 09:10 PHA Creatinine Clear 26.09 12/27/24 05:21 Sodium 131 mmol/L (136-145) L 12/27/24 05:21 Potassium 4.0 mmol/L (3.5-5.1) 12/27/24 05:21 Chloride 91 mmol/L (98-107) L 12/27/24 05:21 Carbon Dioxide 31.3 mmol/L (21.0-31.0) H 12/27/24 05:21 Anion Gap 12.7 mEq/L (6.0-15.0) 12/27/24 05:21 BUN 38 mg/dL (7-25) H 12/27/24 05:21 Creatinine 2.30 mg/dL (0.60-1.20) H 12/27/24 05:21 Est GFR (CKD-EPI) 22.869 mL/Min 12/27/24 05:21 Glucose 194 mg/dL (70-100) H D 12/27/24 05:21 POC Glucose 189 mg/dl 12/27/24 08:39 Lactic Acid 1.7 mmol/L (0.5-1.9) 12/27/24 08:47 Calcium 7.5 mg/dL (8.6-10.3) L 12/27/24 05:21 Total Bilirubin 0.8 mg/dl (0.3-1.0) 12/27/24 05:21 AST 21 U/L (13-39) 12/27/24 05:21 ALT 38 U/L (7-52) 12/27/24 05:21 Alkaline Phosphatase 106 U/L (34-104) H 12/27/24 05:21 Total Protein 5.9 gm/dL (6.4-8.9) L 12/27/24 05:21 Albumin 3.1 gm/dL (3.5-5.7) L 12/27/24 05:21 Globulin 2.8 gm/dL 12/27/24 05:21 Albumin/Globulin Ratio 1.1 12/27/24 05:21 SARS-CoV-2 Rap RNA(RT-PCR) Negative (Negative) 12/27/24 08:40 Blood Type A Positive 12/27/24 09:10 Microbiology Results Micro: Microbiology - Results from entire visit 12/27/24 08:40 Nasopharyngeal SARS-CoV-2, Influenza & RSV (PCR) - Final Assessment & Plan Assessment/Plan (1) Acute ITP: (2) Thrombocytopenia: (3) Stage 3b chronic kidney disease: (4) Type 2 diabetes mellitus with diabetic neuropathy, unspecified: (5) IgG myeloma: (6) On home oxygen therapy: (7) COPD (chronic obstructive pulmonary disease): (8) TANYA (obstructive sleep apnea): (9) Bipolar 1 disorder: (10) Hypertension: (11) Acute kidney injury superimposed on CKD: Plan Kelsea Turcios is a 64 y/o F, h/o HTN, CKD IIIb, COPD on 3-5 L baseline NC, 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 Bills's office due to profound thrombocytopenia, prompting request for medical admission. 1. Profound sudden onset thrombocytopenia in the setting of active chemotherapyfor multiple myeloma - In the emergency room, WBC 1.8 with 33% neutrophils, hemoglobin 11.6, plateletcount 5 on repeat. BMP shows sodium 131, potassium 4, BUN 38, creatinine 2.3, glucose 194. Chest x-ray clear without evidence of consolidation or infiltrates. Urine analysis shows 10-19 WBCs, leukocyte esterase 2+. Renal ultrasound ordered and showed no evidence of pyelonephritis or hydronephrosis. - Consult hematology oncology for evaluation - Hold pharmacologic DVT prophylaxis, SCDs 2. Clinical and laboratory evidence of UTI in the setting of recent fevers of unknown origin, borderline neutropenia - Continue cefepime with vancomycin for now and follow-up blood and urine cultures - Continue to monitor absolute neutrophil count, low threshold for infectious disease consultation if additional fever spikes 3. h/o HTN, CKD IIIb, COPD on 3-5 L baseline NC, MGUS with recent progression toIgG [place]illing[place] myeloma and started on active chemotherapy - Continue home meds for now, hold antihypertensives Diet: Cardiac Daily Labs: CBC, BMP Lines/Drains: PIV DVT ppx: SCDs Code status: Full Status: inpatient IP vs OBS Justification Based on differential dx, clinical care plan, and risk of adverse events, if untreated, in my clinical judgement this patient requires an acute care setting as: INPATIENT because of an expectation ofan over 2 midnight stay. Estimated length of stay (# of days): 3 Documented By: Margarito Rajan MD 12/27/24 1040 Signed By: <Electronically signed by Margarito Rajan MD> 12/27/24 1639 [facility] Work Phone: 1(365) 362-191209-16-2025 Radiology [facility]09-[facility]-2025 History of Present illness Narrative* Mack Tsai DPM - 12/19/2024 9:00 AM EDT Patient: Kelsea Rojo Tam : 1960 PCP: Giovanni Moreno MD SUBJECTIVE This is a 64 y.o. female that presents today with a [...] 01/14/2024 Anemia Anxiety Arthritis Bipolar 1 disorder ([facility]) 01/14/2024 Bipolar disorder with depression ([facility]) 01/14/2024 Breast cancer screening by mammogram 01/14/2024 Chronic depression 01/14/2024 Chronic fatigue 01/14/2024 Chronic hypercapnic respiratory failure ([facility]) 01/14/2024 Chronic kidney disease, stage 3 unspecified ([facility]) COPD (chronic obstructive pulmonary disease) ([facility]) Debility 01/14/2024 Degenerative joint disease of cervical and lumbar spine 01/14/2024 Dehydration 01/14/2024 Diabetes ([facility]) 01/14/2024 Diabetic neuropathy ([facility]) 07/15/2023 Diarrhea 01/14/2024 Difficulty walking Disorder of sacroiliac joint 01/14/2024 DM type 2 (diabetes mellitus, type 2) ([facility]) Elevated troponin 01/14/2024 Epigastric pain 01/14/2024 Gait instability 01/14/2024 GERD (gastroesophageal reflux disease) Hallucinations, visual 01/14/2024 Hemosiderin pigmentation of skin 01/14/2024 Hypertension Hypomagnesemia 01/14/2024 Hypothyroidism 01/14/2024 Iron deficiency anemia 01/14/2024 Irritable bowel disease 01/14/2024 Kidney disease 01/14/2024 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) Morbid obesity with BMI of 45.0-49.9, adult (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) ([facility]) 01/14/2024 OM (onychomycosis) On home oxygen therapy 01/14/2024 TANYA (obstructive sleep apnea) Osteoarthritis of back Other chronic pain 01/14/2024 Peripheral edema 01/14/2024 Pruritic erythematous rash 01/14/2024 Rhabdomyolysis 01/14/2024 Stage 3 chronic kidney disease ([facility]) 01/14/2024 Symptomatic varicose veins of both lower extremities 01/14/2024 Thyroid disease 01/14/2024 Type 2 diabetes mellitus without complications ([facility]) 01/14/2024 Ulcer of left lower leg ([facility]) 01/14/2024 UTI (urinary tract infection) 01/14/2024 Venous reflux 01/14/2024 Venous stasis ulcer limited to breakdown of skin without varicose veins ([facility]) 01/14/2024 Vitamin D deficiency, unspecified Medications: Current [...] Needle Micro U/F 32G X 6 MM [facility], , Disp: , Rfl: budesonide-formoterol (Symbicort) 160-4.5 [...] Gluc Sensor (FreeStyle Alfredo 2 Sensor) [facility], , Disp: , Rfl: Continuous Glucose Fuel [place] Attendant (FreeStyle Alfredo 3 [place]) device, USE DIRECTED, Disp: 1 each, Rfl: 0 Continuous Glucose Sensor (FreeStyle Alfredo 3 Plus Sensor) [facility], 1 Bar Every 15 Days, Disp: 6 [...] 600 MG tablet, , Disp: , Rfl: glucose blood (True Metrix Blood Glucose Test) test strip, USE TWICE A DAY TO TEST BLOOD SUGARS., Disp: 200 each, Rfl: 1 HYDROcodone-acetaminophen ([place]) 5-325 MG tablet, , Disp: , Rfl: [...] glargine (Lantus SoloStar) 100 UNIT/ML pen, Inject 40 Units under the skin in the morning and 40 Units before bedtime., Disp: 72 mL, Rfl: 1 ipratropium-albuterol (Duo-Neb) 0.5-2.5 mg/3 mL [...] at the same time, Disp: , Rfl: prednisoLONE acetate (Pred-Forte) 1 % ophthalmic suspension, , Disp: , Rfl: Refresh Tears 0.5 % ophthalmic solution, , Disp: , Rfl: Rexulti 4 MG tablet, Take 1 tablet by mouth Daily, Disp: , Rfl: semaglutide (Ozempic, 1 MG/DOSE,) 2 MG/1.5ML solution pen-injector, Inject 1 mg under the skin 1 (one) time per week, Disp: 9 mL, Rfl: 1 Semaglutide,0.25 or 0.5MG/DOS, (Ozempic, 0.25 or 0.5 MG/DOSE,) 2 MG/3ML solution pen-injector, INJECT 0.5 MG UNDER THE SKIN 1 (ONE) TIME PER WEEK, Disp: 6 mL, Rfl: 1 sucralfate (Carafate) 1 g tablet, every 12 (twelve) hours, Disp: , Rfl: theophylline ER (Thad-24) 200 MG 24 hr capsule, Take 1 capsule (200 mg) by mouth 1 (one) time each day at the same time, Disp: 30 capsule, Rfl: 5 tiZANidine (Zanaflex) 4 MG tablet, Take 4 mg by mouth in the evening, Disp: , Rfl: True Comfort Twist Top Lancets misc, USE TWICE A DAY WITH LANCING DEVICE., Disp: 200 each, Rfl: 1 zonisamide (Zonegran) 25 MG capsule, , Disp: [...] and negative PT pedal pulses NEURO: 5.07 Laurel Rosi monofilament test diminished to digits and [...] offer for medication and/or prescription refill. Mack Tsai DPM documented in this [facility]08-18-2025 Telephone encounter Note* Telephone Encounter - Jj Mora - 11/28/2024 1:29 PM EDT Anthony from [employer] called about addies' sensors. Please call [phone]. Thank you! [id number] Miscellaneous Notes* Telephone Encounter - Jj Mora - 11/28/2024 1:29 PM EDT Anthony from [employer] called about addies' sensors. Please call [phone]. Thank you! documented in this [facility]08-04-2025 History of Present illness Narrative* Jeannie Aguilar MD - 11/14/2024 9:00 AM EDT Kelsea Turcios is a 64 y.o. female No ref. provider found presents with chief complaint of Diabetesand Follow-up HPI: 11/2024 History of Present Illness The patient is a 64-year-old female who presents for a follow-up visit on 11/14/2024. She is currently undergoing chemotherapy for multiple myeloma. Her A1c level in the office is 12.6, indicating high blood sugar levels. She is currently on Cpupqf59 units and NovoLog 40 units with every meal. Additionally, she has started Ozempic at a dose of 0.5 mg once weekly and Farxiga. IM : 05/2024 follow up visit on 05/25/2024, a1C 13.4, BG 161 , CGM 3-12-87 % AVG 311. on Farxiga 5, lantus 50 units, Lyumjev 40 units bid plus sliding scale #2. OFF HER MEDS FOR 2-3 WEEKS IM : 01/2024 follow up visit on 01/20/2024, a1C 9.1, BG 126 , CGM 3-51-45 % AVG 171. on Farxiga 5, lantus 50 units, Lyumjev 40 units bid plus sliding scale #2. IM : 10/2023 follow up visit on 10/21/2023, a1C 9.1, BG 116 , CGM 6-34-60 % AVG 193. on Farxiga 5, lantus 40 units, Lyumjev 40 units bid plus sliding scale #2. IM : 07/2023 follow up visit on 08/05/2023, a1C 9.2, BG 63, CGM 4-30-66 % AVG 201. on xiga 5, Basaglar 40 units, Lyumjev 30-35 units bid plus sliding scale #2. lab on 07/2023 GFR 38, TC 134M HDL 45, LDL 71. IM : 04/2023 follow up visit on 05/06/2023, a1C 11.3, BG 331 CGM 0-14-86 % AVG 272. on xiga 5, Basaglar 30 units, Lyumjev 17-20 units bid plus sliding scale #2. IM : 01/2023 follow up visit on 02/04/2023, urgent visit for high bg, 174 in the offcie, CGM 0-16-83% AVG 252. on Farxiga 5, Basaglar 36 units, Lyumjev 20-30 units bid plus sliding scale #2. had burning during injection site IM : 11/2022 follow up visit on 11/19/2022, A1c 8.6, bg 82, CGM 0-51-49 % AVG 182. off metformin, on Farxiga 5, Basaglar 30 units, Lyumjev 20 mL units bid plus sliding scale #2. IM 08/2022 follow up visit on 08/13/2022, A1c 7.5, bg 72, cgm 3-67-30 % AVG 156. on metformin 850 once and Farxiga 5, Basaglar 25 units, Lyumjev 10 mL units bid plus sliding scale #2. lab CR 1..65, GFR 34, TC 146, HDL 51, LDL 82, VIT D 47, AL/CR 51. HPI: 04/2022 New patient sent from Pain Management in [place], Dr. Brenden Groves, for uncontrolled diabetes. A1c in the office 7.9 , blood sugar 153. She has diabetes since long time. She has COPD, using home oxygen. She has kidney problem. I do not know what is her GFR. Gabapentin dropped from 900 t.i.d. to 300 t.i.d. and started Tramadol. For diabetes, she is using Basaglar 23 around noontime and metformin 850 once a day and Farxiga 5 mg. Her CGM shows 0% in low range, 32 in good range, 68 in high range, average 211. SUBJECTIVE: MEDICATIONS: Current Outpatient Medications Medication Instructions albuterol HFA 90 mcg/act inhaler 2 puffs, Inhalation, 3 times daily amLODIPine (NORVASC) 10 mg, Daily aspirin 81 MG EC tablet BD Pen Needle Micro U/F 32G X 6 MM misc budesonide-formoterol (Symbicort) 160-4.5 MCG/ACT inhaler 2 puffs, Inhalation, 2 times daily RT, Rinse mouth with water after use to reduce aftertaste and incidence of candidiasis. Do not swallow. busPIRone (Buspar) 5 MG tablet TAKE 1 TABLET BY ORAL ROUTE 1 TIMES PER DAY IN THE AFTERNOON Cholecalciferol (Vitamin D) 50 MCG (1999 UT) capsule 1 capsule, Every 24 hours clobetasol (Temovate) 0.05 % cream cloNIDine (Catapres) 0.1 MG tablet colestipol (COLESTID) 2 g, Every 24 hours Continuous Blood Gluc Sensor (FreeStyle Alfredo 2 Sensor) [facility] Continuous Glucose Fuel [place] Attendant (FreeStyle Alfredo 3 [place]) device USE DIRECTED Continuous Glucose Sensor (FreeStyle Alfredo 3 Plus Sensor) [facility] 1 Bar, Does not apply, Every 15 Days Coreg 25 mg, Every 12 hours dapagliflozin (FARXIGA) 10 mg, Oral, Daily diclofenac sodium 1 % gel APPLY 4 GRAMS TO AFFECTED AREA 4 TIMES DAILY dicyclomine (BENTYL) 20 mg, 3 times daily PRN DULoxetine (CYMBALTA) 60 mg, Daily Fetzima 120 MG extended release capsule fluticasone (Flonase) 50 MCG/ACT nasal spray USE 1 SPRAY INTO EACH NOSTRIL EVERY DAY FOR 30 DAYS furosemide (Lasix) 40 MG tablet gabapentin (Neurontin) 600 MG tablet HYDROcodone-acetaminophen ([place]) 5-325 MG tablet hydrOXYzine HCl (Atarax) 10 MG tablet hydrOXYzine HCl (ATARAX) 25 mg, 3 times daily PRN ipratropium-albuterol (Duo-Neb) 0.5-2.5 mg/3 mL nebulizer solution 3 mL, Nebulization, 4 times daily PRN Lantus SoloStar 40 Units, Subcutaneous, 2 times daily levothyroxine (Synthroid, Levoxyl) 75 MCG tablet loperamide (Imodium A-D) 2 MG tablet 1 tablet Lyumjev KwikPen 40 Units, Subcutaneous, 3 times daily with meals mirtazapine (Remeron) 45 MG tablet montelukast (SINGULAIR) 10 mg, Oral, Every 24 hours NovoLOG FLEXPEN 40 Units, Subcutaneous, 3 times daily before meals olopatadine (Patanol) 0.1 % ophthalmic solution omeprazole (PriLOSEC) [address] capsule Every 24 hours oxybutynin XL (Ditropan XL) 10 MG 24 hr tablet Every 24 hours Ozempic (0.25 or 0.5 MG/DOSE) 0.5 mg, Subcutaneous, Every 7 days Ozempic (1 MG/DOSE) 1 mg, Subcutaneous, Weekly prednisoLONE acetate (Pred-Forte) 1 % ophthalmic suspension Refresh Tears 0.5 % ophthalmic solution Rexulti 4 MG tablet 1 tablet, Daily sucralfate (Carafate) 1 g tablet Every 12 hours theophylline ER (THAD-24) 200 mg, Oral, Every 24 hours tiZANidine (ZANAFLEX) 4 mg, Every evening zonisamide (Zonegran) 25 MG capsule ALLERGIES: Allergies Allergen Reactions Honey Anaphylaxis and Hives Codeine Itching and Rash Morphine Rash Gastrointestinal Upset Tramadol Hallucinations Past Medical History: Diagnosis Date Acute hyperkalemia 01/14/2024 Acute metabolic encephalopathy 01/14/2024 PETER (acute kidney injury) 01/14/2024 Anemia Anxiety Arthritis Bipolar 1 disorder ([facility]) 01/14/2024 Bipolar disorder with depression ([facility]) 01/14/2024 Breast cancer screening by mammogram 01/14/2024 Chronic depression 01/14/2024 Chronic fatigue 01/14/2024 Chronic hypercapnic respiratory failure ([facility]) 01/14/2024 Chronic kidney disease, stage 3 unspecified ([facility]) COPD (chronic obstructive pulmonary disease) ([facility]) Debility 01/14/2024 Degenerative joint disease of cervical and lumbar spine 01/14/2024 Dehydration 01/14/2024 Diabetes ([facility]) 01/14/2024 Diabetic neuropathy ([facility]) 07/15/2023 Diarrhea 01/14/2024 Difficulty walking Disorder of sacroiliac joint 01/14/2024 DM type 2 (diabetes mellitus, type 2) ([facility]) Elevated troponin 01/14/2024 Epigastric pain 01/14/2024 Gait instability 01/14/2024 GERD (gastroesophageal reflux disease) Hallucinations, visual 01/14/2024 Hemosiderin pigmentation of skin 01/14/2024 Hypertension Hypomagnesemia 01/14/2024 Hypothyroidism 01/14/2024 Iron deficiency anemia 01/14/2024 Irritable bowel disease 01/14/2024 Kidney disease 01/14/2024 FPC (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 ([facility]) 01/14/2024 Lumbar degenerative disc disease 01/14/2024 Lumbar spondylolysis Lumbosacral spondylosis without myelopathy 01/14/2024 Major depressive disorder with psychotic features ([facility]) 01/14/2024 Mixed hyperlipidemia Monoclonal gammopathy 01/14/2024 Morbid obesity with BMI of 40.0-44.9, adult ([facility]) Morbid obesity with BMI of 45.0-49.9, adult (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) ([facility]) 01/14/2024 OM (onychomycosis) On home oxygen therapy 01/14/2024 TANYA (obstructive sleep apnea) Osteoarthritis of back Other chronic pain 01/14/2024 Peripheral edema 01/14/2024 Pruritic erythematous rash 01/14/2024 Rhabdomyolysis 01/14/2024 Stage 3 chronic kidney disease ([facility]) 01/14/2024 Symptomatic varicose veins of both lower extremities 01/14/2024 Thyroid disease 01/14/2024 Type 2 diabetes mellitus without complications ([facility]) 01/14/2024 Ulcer of left lower leg ([facility]) 01/14/2024 UTI (urinary tract infection) 01/14/2024 Venous reflux 01/14/2024 Venous stasis ulcer limited to breakdown of skin without varicose veins ([facility]) 01/14/2024 Vitamin D deficiency, unspecified Past Surgical History: Procedure Laterality Date CHOLECYSTECTOMY CT GUIDED IMAGING FOR NEEDLE PLACEMENT 02/24/2023 CT GUIDED IMAGING FOR NEEDLE PLACEMENT HYSTERECTOMY complete - no cancer REVIEW OF SYMPTOMS: 14 POINT OF SYSTEM REVIEWED AND NEGATIVE OBJECTIVE: Constitutional: Afebrile @ home; no weakness or night sweats SKIN: No change in skin color; no itching, rash or lesions; no hair loss; HEENT: No HAs or injury; no dizziness; No difficulty with vision; no eye pain, discharge or lesions; no hearing loss or difficulty; no nasal discharge, NECK: No pain, limitation of motion, lumps or swollen glands RESP: No cough, wheezing or difficulty breathing. No CP with breathing; CARDIO: No CP , SOB or fatigue, No edema, palpitations or dyspnea with exertion GI: No N/V/D or abd. pain; good appetite with no recent change. No heart burn, liver or gallbladderdisease; no rectal bleeding or pain : No urinary pain , frequency or odor. MUSCULOSKELETAL: No muscle pain or cramps; no extremity weakness.No joint pain, stiffness, swellingor limitation of movement NEUROLOGY: No H/O seizures, stroke or fainting. No weakness, tremors. Hematology: No bleeding problems or excessive bruising ENDOCRINE: No increase in hunger, thirst or urination; admits compliance to medical management plan Feet: numbness tingling yes , ulcers or skin break no Lab Results Component Value Date HGBA1C 12.6 11/14/2024 HGBA1C 10.9 08/22/2024 HGBA1C 13.4 05/25/2024 Lab Results Component Value Date GLU 252 11/14/2024 GLU 551 (HH) 11/10/2024 GLU 292 (H) 10/05/2024 02/02/2024 8:17 AM 04/15/2024 8:28 AM 05/25/2024 10:41 AM 08/22/2024 11:37 AM 08/25/2024 1:25 PM 09/30/2024 9:57 AM 11/14/2024 9:04 AM Vitals BMI 48.63 kg/m2 48.63 kg/m2 44.33 kg/m2 44.72 kg/m2 38.79 kg/m2 38.79 kg/m2 45.7 kg/m2 BSA (m2) 2.19 m2 2.19 m2 2.09 m2 2.1 m2 2.16 m2 2.16 m2 2.12 m2 Systolic 125 120 120 120 Diastolic 80 86 78 78 Heart Rate 81 97 71 75 96 SpO2 94 % 95 % 98 % 94 % Resp 18 18 16 16 18 Height (in) 5' 5' 5' 5' 5' 4 5' 4 5' Weight (lb) 249 249 227 229 226 226 234 Visit Report Report Report Report Report Report Report Report ASSESSMENT AND PLAN: Assessment/Plan Diagnoses and all orders for this visit: Vitamin D deficiency Type 2 diabetes mellitus with hyperglycemia, with long-term current use of insulin ([facility]) - POCT glucose manually resulted - POCT glycosylated hemoglobin (Hb A1C) docked device - insulin glargine (Lantus SoloStar) 100 UNIT/ML pen; Inject 40 Units under the skin in the morningand 40 Units before bedtime. - semaglutide (Ozempic, 1 MG/DOSE,) 2 MG/1.5ML solution pen-injector; Inject 1 mg under the skin 1 (one) time per week Primary hypertension Hyperlipemia, mixed Insulin long-term use ([facility]) Encounter for dietary consultation Stage 3b chronic kidney disease ([facility]) Assessment & Plan 1. Diabetes Mellitus: Not at treatment goal. - A1c is 12.6, indicating poorly controlled diabetes. Blood sugar is in the high range. - Patient is currently on Lantus 40 units and NovoLog 40 units with every meal, Ozempic 0.5 mg onceweekly, and Farxiga 10 mg once a day. - Increase Lantus to 40 units twice a day. Maintain NovoLog at 40 units with each meal, with adjustments between 30, 35, and 40 units based on meal size. Increase Ozempic to 1 mg once weekly. Continue Farxiga 10 mg once daily. Follow up in about 3 months (around 02/14/2025). documented in this [facility]07-17-2025 Evaluation note* Diagnosis Onset Date Resolution Status Admit Date Cancer related pain acuteJuly 2024 1:46pmEncounter for chemotherapy managementacuteJuly 2024 1:46pmHistory of iron deficiency anemiaacuteJuly 2024 1:46pmIgG myelomaacuteJuly 2024 1:46pmPruritic erythematous rashacuteJuly 2024 1:46pmBipolar 1 disorderchronicJuly 2024 1:46pmCOPD (chronic obstructive pulmonary disease)chronicJuly 2024 1:46pmDiabetic neuropathy associated with diabetes mellitus due to underlyingchronicJuly 2024 1:46pm HypertensionchronicJuly 2024 1:46pmCKD (chronic kidney disease) stage 3, GFR 30-59 ml/minresolvedJuly 2024 1:46pmMorbid obesity with BMI of 45.0- 49.9, adultresolvedJuly 2024 1:46pmVenous stasis dermatitis of both lower extremitiesresolvedJuly 2024 1:46pmCancer related painacuteAugust 2024 11:23amEncounter for chemotherapy managementacuteAugust 2024 11:23am History of iron deficiency anemiaacuteAugust 2024 11:23amIgG myelomaacute [place] 2024 11:23amPruritic erythematous rashacuteAugust 2024 11:23amBipolar 1 disorderchronicAugust 2024 11:23amCOPD (chronic obstructive pulmonary disease)chronicAugust 2024 11:23amDiabetic neuropathy associated with diabetes mellitus due to underlyingchronicAugust 2024 11:23amHypertensionchronicAugust 2024 11:23amCKD (chronic kidney disease) stage [...] 8:30amVenous stasis dermatitis of both lower extremitiesresolvedSeptember , 2025 8:30amAcute kidney injury superimposed on CKDacuteSeptember 2024 8:56amBMI 40.0-44.9, adultacute December 27, 2024 8:56amEncounter for chemotherapy managementacuteSeptember 2024 8:56amHypokalemiaacuteSeptember 2024 8:56amIgG myelomaacute December 27, 2024 8:56amNeutropeniaacuteSept2024 8:56am Neutropenic feveracuteSept2024 8:56amOn home oxygen therapyacute December 27, 2024 8:56amPneumoniaacuteSept2024 8:56amStage 3b chronic kidney diseaseacuteSept[facility] 20[facility] 8:56amThrombocytopeniaacute December 27, 2024 8:56amType 2 diabetes mellitus with diabetic neuropathy, unspecifiedacuteptarizona [facility] hospital 2024 8:56amBipolar 1 disorderchronicSeptarizona state hospital 2024 8:56amCOPD (chronic obstructive pulmonary disease)chronicSeptarizona state hospital 2024 8:56amHypertensionchronicSeptarizona state hospital 2024 8:56amOSA (obstructive sleep apnea)chronicpt2024 8:56amAcute ITPdeletedptarizona state hospital 2024 8:56amCOPD (chronic obstructive pulmonary disease)chronicOctober 2024 11:13amDegenerative joint disease of cervical and lumbar spinechronicOctober 2024 11: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)chronicOctober 2024 11:13amCKD (chronic kidney disease) stage 3, GFR 30-59 ml/minresolvedOctober 2024 11:13amIron deficiency anemia resolvedOctober 2024 11:13amBipolar disorder with depressioninactiveOctober 2024 11:13amDiabetesinactiveOctober 2024 11:13amMorbid obesityinactive October 2024 11:13amCancer related painacuteOctober 2024 11:13am Encounter for chemotherapy managementacuteOctober 2024 11:13amFever of unknown origin (FUO)acuteOctober 2024 11:13amHistory of iron deficiency anemiaacuteOctober 2024 11:13amIgG myelomaacuteOctober 2024 11:13am Pruritic erythematous rashacuteOctober 2024 11:13amBipolar 1 disorder chronicOctober 2024 11:13amCOPD (chronic obstructive pulmonary disease) chronicOctober 2024 11:13amDiabetic neuropathy associated with diabetes mellitus due to underlyingchronicOctober 2024 11:13amHypertensionchronic October 2024 11:13amCKD (chronic kidney disease) stage 3, GFR 30-59 ml/min resolvedOctober 2024 11:13amMorbid obesity with BMI of 45.0-49.9, adult resolvedOctober 2024 11:13amVenous stasis dermatitis of both lower extremitiesresolvedOctober 2024 11:13amFollow-up visit after completion of treatmentnoneactiveOctober 2024 11:13am [facility] Work Phone: 1(643) 483-875406-26-2025 Evaluation note* Diagnosis Onset Date Resolution Status Admit Date Cancer related pain acuteJune 2024 11:08amHistory of iron deficiency anemiaacuteJune 2024 11:08amIgG myelomaacuteJune 2024 11:08amPruritic erythematous rash acuteJune 2024 11:08amBipolar 1 disorderchronicJune 2024 11:08amCOPD (chronic obstructive pulmonary disease)chronicJune 2024 11:08amDiabetic neuropathy associated with diabetes mellitus due to underlyingchronicJune 2024 11:08amHypertensionchronicJune 2024 11:08amCKD (chronic kidney disease) stage 3, GFR 30-59 ml/minresolvedJune 2024 11:08amMorbid obesity with BMI of 45.0-49.9, adultresolvedJune 2024 11:08amVenous stasis dermatitis of both lower extremitiesresolvedJune 2024 11:08amCancer related painacuteJuly 2024 1:46pmEncounter for chemotherapy management acuteJuly 2024 1:46pmHistory of iron deficiency anemiaacuteJuly 2024 1:46pmIgG myelomaacuteJuly 2024 1:46pmPruritic erythematous rashacuteJuly 2024 1:46pmBipolar 1 disorderchronicJuly 2024 1:46pmCOPD (chronic obstructive pulmonary disease)chronicJuly 2024 1:46pmDiabetic neuropathy associated with diabetes mellitus due to underlyingchronicJuly 2024 1:46pm HypertensionchronicJuly 2024 1:46pmCKD (chronic kidney disease) stage 3, GFR 30-59 ml/minresolvedJuly 2024 1:46pmMorbid obesity with BMI of 45.0- 49.9, adultresolvedJuly 2024 1:46pmVenous stasis dermatitis of both lower extremitiesresolvedJuly 2024 1:46pmCancer related painacuteAugust 2024 11:23amEncounter for chemotherapy managementacuteAugust 2024 11:23am History of iron deficiency anemiaacuteAugust 2024 11:23amIgG myelomaacute [place] 2024 11:23amPruritic erythematous rashacuteAugust 2024 11:23amBipolar 1 disorderchronicAugust 2024 11:23amCOPD (chronic obstructive pulmonary disease)chronicAugust 2024 11:23amDiabetic neuropathy associated with diabetes mellitus due to underlyingchronicAugust 2024 11:23amHypertensionchronicAugust 2024 11:23amCKD (chronic kidney disease) stage 3, GFR 30-59 ml/minresolvedAugust 2024 11:23amMorbid obesity with BMI of 45.0-49.9, adultresolvedAugust 2024 11:23amVenous stasis dermatitis of both lower extremitiesresolvedAugust 2024 11:23amCOPD (chronic obstructive pulmonary disease)chronicAugust 2024 9:44am Degenerative joint disease of cervical and lumbar spinechronicAugust 2024 9: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)chronicAugust 2024 9:44amCKD (chronic kidney disease) stage 3, GFR 30-59 ml/minresolvedAugust 2024 9:44amIron deficiency anemiaresolvedAugust 2024 9:44amBipolar disorder with depressioninactiveAugust 2024 9:44amDiabetesinactiveAugust 2024 9:44amMorbid obesityinactiveAugust 2024 9:44am [facility] Work Phone: 1(739) 720-889206-26-2025 Evaluation note* Diagnosis Onset Date Resolution Status Admit Date Cancer related pain acuteJune 2024 11:08amHistory of iron deficiency anemiaacuteJune 2024 11:08amIgG myelomaacuteJune 2024 11:08amPruritic erythematous rash acuteJune 2024 11:08amBipolar 1 disorderchronicJune 2024 11:08amCOPD (chronic obstructive pulmonary disease)chronicJune 2024 11:08amDiabetic neuropathy associated with diabetes mellitus due to underlyingchronicJune 2024 11:08amHypertensionchronicJune 2024 11:08amCKD (chronic kidney disease) stage 3, GFR 30-59 ml/minresolvedJune 2024 11:08amMorbid obesity with BMI of 45.0-49.9, adultresolvedJune 2024 11:08amVenous stasis dermatitis of both lower extremitiesresolvedJune 2024 11:08amCancer related painacuteJuly 2024 1:46pmEncounter for chemotherapy management acuteJuly 2024 1:46pmHistory of iron deficiency anemiaacuteJuly 2024 1:46pmIgG myelomaacuteJuly 2024 1:46pmPruritic erythematous rashacuteJuly 2024 1:46pmBipolar 1 disorderchronicJuly 2024 1:46pmCOPD (chronic obstructive pulmonary disease)chronicJuly 2024 1:46pmDiabetic neuropathy associated with diabetes mellitus due to underlyingchronicJuly 2024 1:46pm HypertensionchronicJuly 2024 1:46pmCKD (chronic kidney disease) stage 3, GFR 30-59 ml/minresolvedJuly 2024 1:46pmMorbid obesity with BMI of 45.0- 49.9, adultresolvedJuly 2024 1:46pmVenous stasis dermatitis of both lower extremitiesresolvedJuly 2024 1:46pmCancer related painacuteAugust 2024 11:23amEncounter for chemotherapy managementacuteAugust 2024 11:23am History of iron deficiency anemiaacuteAugust 2024 11:23amIgG myelomaacute November 22, 2024 11:23amPruritic erythematous rashacuteAugust 2024 11:23amBipolar 1 disorderchronicAugust 2024 11:23amCOPD (chronic obstructive pulmonary disease)chronicAugust 2024 11:23amDiabetic neuropathy associated with diabetes mellitus due to underlyingchronicAugust 2024 11:23amHypertensionchronicAugust 2024 11:23amCKD (chronic kidney disease) stage [...] related painacuteSeptember 2024 8:30am Encounter for chemotherapy managementacuteSept2024 8:30amHistory of iron deficiency anemiaacuteSeptember 2024 8:30amIgG myelomaacuteSeptember 2024 8:30amPruritic erythematous rashacuteSeptember 2024 8:30am Bipolar 1 disorderchronicSeptember 2024 8:30amCOPD (chronic obstructive pulmonary disease)chronicSeptember 2024 8:30amDiabetic neuropathy associated with diabetes mellitus due to underlyingchronicSeptember 2024 8:30amHypertensionchronicSeptember 2024 8:30amCKD (chronic kidney disease) stage 3, GFR 30-59 ml/minresolvedSeptember 2024 8:30amMorbid obesity with BMI of 45.0-49.9, [facility] 2024 8:30amVenous stasis dermatitis of both lower extremitiesresolvedSeptarizona state hospital 2024 8:30amCOPD (chronic obstructive pulmonary disease)chronicSeptember 2024 8:58am Degenerative joint disease of cervical and lumbar spinechronicSeptember 2024 8: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)chronicSeptember 2024 8:58amCKD (chronic kidney disease) stage 3, GFR 30-59 ml/minresolvedSeptember 2024 8:58amIron deficiency anemiaresolvedSeptember 2024 8:58amBipolar disorder with depressioninactiveSeptember 2024 8:58amDiabetesinactiveSeptember 2024 8:58amMorbid obesityinactiveSeptember 2024 8:58am [facility] Work Phone: 1(243) 963-912106-26-2025 Evaluation note* Diagnosis Onset Date Resolution Status Admit Date Cancer related pain acuteJune 2024 11:08amHistory of iron deficiency anemiaacuteJune 2024 11:08amIgG myelomaacuteJune 2024 11:08amPruritic erythematous rash acuteJune 2024 11:08amBipolar 1 disorderchronicJune 2024 11:08amCOPD (chronic obstructive pulmonary disease)chronicJune 2024 11:08amDiabetic neuropathy associated with diabetes mellitus due to underlyingchronicJune 2024 11:08amHypertensionchronicJune 2024 11:08amCKD (chronic kidney disease) stage 3, GFR 30-59 ml/minresolvedJune 2024 11:08amMorbid obesity with BMI of 45.0-49.9, adultresolvedJune 2024 11:08amVenous stasis dermatitis of both lower extremitiesresolvedJune 2024 11:08amCancer related painacuteJuly 2024 1:46pmEncounter for chemotherapy management acuteJuly 2024 1:46pmHistory of iron deficiency anemiaacuteJuly 2024 1:46pmIgG myelomaacuteJuly 2024 1:46pmPruritic erythematous rashacuteJuly 2024 1:46pmBipolar 1 disorderchronicJuly 2024 1:46pmCOPD (chronic obstructive pulmonary disease)chronicJuly 2024 1:46pmDiabetic neuropathy associated with diabetes mellitus due to underlyingchronicJuly 2024 1:46pm HypertensionchronicJuly 2024 1:46pmCKD (chronic kidney disease) stage 3, GFR 30-59 ml/minresolvedJuly 2024 1:46pmMorbid obesity with BMI of 45.0- 49.9, adultresolvedJuly 2024 1:46pmVenous stasis dermatitis of both lower extremitiesresolvedJuly 2024 1:46pmCancer related painacuteAugust 2024 11:23amEncounter for chemotherapy managementacuteAugust 2024 11:23am History of iron deficiency anemiaacuteAugust 2024 11:23amIgG myelomaacute November 22, 2024 11:23amPruritic erythematous rashacuteAugust 2024 11:23amBipolar 1 disorderchronicAugust 2024 11:23amCOPD (chronic obstructive pulmonary disease)chronicAugust 2024 11:23amDiabetic neuropathy associated with diabetes mellitus due to underlyingchronicAugust 2024 11:23amHypertensionchronicAugust 2024 11:23amCKD (chronic kidney disease) stage [...] stasis dermatitis of both lower extremitiesresolvedSeptember 2024 8:30amCOPD (chronic obstructive pulmonary disease)chronicSeptember 2024 9:59amDegenerative joint disease of cervical and lumbar spinechronicSeptember 2024 9:59am 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September 2024 9:59amCKD (chronic kidney disease) stage 3, GFR 30- 59 ml/minresolvedSeptember 2024 9:59amIron deficiency anemiaresolved December 26, 2024 9:59amBipolar disorder with depressioninactiveSeptember 2024 9:59amDiabetesinactiveSeptember 2024 9:59amMorbid obesity inactiveSeptember 2024 9:59am [facility] Work Phone: 1(236) 603-315006-26-2025 Evaluation note* Diagnosis Onset Date Resolution Status Admit Date Cancer related pain acuteJune 2024 11:08amHistory of iron deficiency anemiaacuteJune 2024 11:08amIgG myelomaacuteJune 2024 11:08amPruritic erythematous rash acuteJune 2024 11:08amBipolar 1 disorderchronicJune 2024 11:08amCOPD (chronic obstructive pulmonary disease)chronicJune 2024 11:08amDiabetic neuropathy associated with diabetes mellitus due to underlyingchronicJune 2024 11:08amHypertensionchronicJune 2024 11:08amCKD (chronic kidney disease) stage 3, GFR 30-59 ml/minresolvedJune 2024 11:08amMorbid obesity with BMI of 45.0-49.9, adultresolvedJune 2024 11:08amVenous stasis dermatitis of both lower extremitiesresolvedJune 2024 11:08amCancer related painacuteJuly 2024 1:46pmEncounter for chemotherapy management acuteJuly 2024 1:46pmHistory of iron deficiency anemiaacuteJuly 2024 1:46pmIgG myelomaacuteJuly 2024 1:46pmPruritic erythematous rashacuteJuly 2024 1:46pmBipolar 1 disorderchronicJuly 2024 1:46pmCOPD (chronic obstructive pulmonary disease)chronicJuly 2024 1:46pmDiabetic neuropathy associated with diabetes mellitus due to underlyingchronicJuly 2024 1:46pm HypertensionchronicJuly 2024 1:46pmCKD (chronic kidney disease) stage 3, GFR 30-59 ml/minresolvedJuly 2024 1:46pmMorbid obesity with BMI of 45.0- 49.9, adultresolvedJuly 2024 1:46pmVenous stasis dermatitis of both lower extremitiesresolvedJuly 2024 1:46pmCancer related painacuteAugust 2024 11:23amEncounter for chemotherapy managementacuteAugust 2024 11:23am History of iron deficiency anemiaacuteAugust 2024 11:23amIgG myelomaacute [place] 2024 11:23amPruritic erythematous rashacuteAugust 2024 11:23amBipolar 1 disorderchronicAugust 2024 11:23amCOPD (chronic obstructive pulmonary disease)chronicAugust 2024 11:23amDiabetic neuropathy associated with diabetes mellitus due to underlyingchronicAugust 2024 11:23amHypertensionchronicAugust 2024 11:23amCKD (chronic kidney disease) stage [...] stasis dermatitis of both lower extremitiesresolvedSeptember 2024 8:30amCOPD (chronic obstructive pulmonary disease)chronicSeptember 2024 9:59amDegenerative joint disease of cervical and lumbar spinechronicSeptember 2024 9:59am 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September 2024 9:59amCKD (chronic kidney disease) stage 3, GFR 30- 59 ml/minresolvedSeptember 2024 9:59amIron deficiency anemiaresolved December 26, 2024 9:59amBipolar disorder with depressioninactiveSeptember 2024 9:59amDiabetesinactiveSeptember 2024 9:59amMorbid obesity inactiveSeptember 2024 9:59amAcute ITPacuteSeptember 2024 8:56am Acute kidney injury superimposed on CKDacuteSeptember 2024 8:56amIgG myelomaacuteSeptember 2024 8:56amNeutropeniaacuteSeptember 2024 8:56amOn home oxygen therapyacuteSept2024 8:56amPneumoniaacute December 27, 2024 8:56amStage 3b chronic kidney diseaseacuteSeptember 2024 8:56amThrombocytopeniaacuteSeptember 2024 8:56amType 2 diabetes mellitus with diabetic neuropathy, unspecifiedacuteSeptember 2024 8:56am Bipolar 1 disorderchronicSeptember 2024 8:56amCOPD (chronic obstructive pulmonary disease)chronicSeptember 2024 8:56amHypertensionchronicSeptember 2024 8:56amOSA (obstructive sleep apnea)chronicSept2024 8:56am [facility] Work Phone: 1(818) 129-410406-26-2025 Evaluation note* Diagnosis Onset Date Resolution Status Admit Date Cancer related pain acuteJune 2024 11:08amHistory of iron deficiency anemiaacuteJune 2024 11:08amIgG myelomaacuteJune 2024 11:08amPruritic erythematous rash acuteJune 2024 11:08amBipolar 1 disorderchronicJune 2024 11:08amCOPD (chronic obstructive pulmonary disease)chronicJune 2024 11:08amDiabetic neuropathy associated with diabetes mellitus due to underlyingchronicJune 2024 11:08amHypertensionchronicJune 2024 11:08amCKD (chronic kidney disease) stage 3, GFR 30-59 ml/minresolvedJune 2024 11:08amMorbid obesity with BMI of 45.0-49.9, adultresolvedJune 2024 11:08amVenous stasis dermatitis of both lower extremitiesresolvedJune 2024 11:08amCancer related painacuteJuly 2024 1:46pmEncounter for chemotherapy management acuteJuly 2024 1:46pmHistory of iron deficiency anemiaacuteJuly 2024 1:46pmIgG myelomaacuteJuly 2024 1:46pmPruritic erythematous rashacuteJuly 2024 1:46pmBipolar 1 disorderchronicJuly 2024 1:46pmCOPD (chronic obstructive pulmonary disease)chronicJuly 2024 1:46pmDiabetic neuropathy associated with diabetes mellitus due to underlyingchronicJuly 2024 1:46pm HypertensionchronicJuly 2024 1:46pmCKD (chronic kidney disease) stage 3, GFR 30-59 ml/minresolvedJuly 2024 1:46pmMorbid obesity with BMI of 45.0- 49.9, adultresolvedJuly 2024 1:46pmVenous stasis dermatitis of both lower extremitiesresolvedJuly 2024 1:46pmCancer related painacuteAugust 2024 11:23amEncounter for chemotherapy managementacuteAugust 2024 11:23am History of iron deficiency anemiaacuteAugust 2024 11:23amIgG myelomaacute November 22, 2024 11:23amPruritic erythematous rashacuteAugust 2024 11:23amBipolar 1 disorderchronicAugust 2024 11:23amCOPD (chronic obstructive pulmonary disease)chronicAugust 2024 11:23amDiabetic neuropathy associated with diabetes mellitus due to underlyingchronicAugust 2024 11:23amHypertensionchronicAugust 2024 11:23amCKD (chronic kidney disease) stage [...] stasis dermatitis of both lower extremitiesresolvedSeptember 2024 8:30amCOPD (chronic obstructive pulmonary disease)chronicSeptember 2024 9:59amDegenerative joint disease of cervical and lumbar spinechronicSeptember 2024 9:59am 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September 2024 9:59amCKD (chronic kidney disease) stage 3, GFR 30- 59 ml/minresolvedSeptember 2024 9:59amIron deficiency anemiaresolved December 26, 2024 9:59amBipolar disorder with depressioninactiveSeptember 2024 9:59amDiabetesinactiveSeptember 2024 9:59amMorbid obesity inactiveSeptember 2024 9:59amAcute ITPacuteSeptember 2024 8:56am Acute kidney injury superimposed on CKDacuteSeptember 2024 8:56amBMI 40.0- 44.9, adultacuteSeptember 2024 8:56amEncounter for chemotherapy management acuteSeptember 2024 8:56amHypokalemiaacuteSeptember 2024 8:56amIgG myelomaacuteSeptember 2024 8:56amNeutropeniaacuteSeptember 2024 8:56amNeutropenic feveracuteSept2024 8:56amOn home oxygen therapy acutept2024 8:56amPneumoniaacuteDecember 27, 2024 8:56amStage 3b chronic kidney diseaseacuteSept2024 8:56amThrombocytopeniaacute December 27, 2024 8:56amType 2 diabetes mellitus with diabetic neuropathy, unspecifiedacutept2024 8:56amBipolar 1 disorderchronicSept2024 8:56amCOPD (chronic obstructive pulmonary disease)chronicSept2024 8:56amHypertensionchronicSept2024 8:56amOSA (obstructive sleep apnea)chronicDecember 27, 2024 8:56am [facility] Work Phone: 1(722) 905-298206-20-2025 History of Present illness Narrative* Mack Tsai, FRANDY - 09/30/2024 10:10 AM EDT Patient: Kelsea [...] 01/14/2024 Anemia Anxiety Arthritis Bipolar 1 disorder (HCC) 01/14/2024 Bipolar disorder with depression (HCC) 01/14/2024 Breast cancer screening by mammogram 01/14/2024 Chronic depression 01/14/2024 Chronic fatigue 01/14/2024 Chronic hypercapnic respiratory failure (HCC) 01/14/2024 Chronic kidney disease, stage 3 unspecified ([facility]) COPD (chronic obstructive pulmonary disease) ([facility]) Debility 01/14/2024 Degenerative joint disease of cervical and lumbar spine 01/14/2024 Dehydration 01/14/2024 Diabetes ([facility]) 01/14/2024 Diabetic neuropathy ([facility]) 07/15/2023 Diarrhea 01/14/2024 Difficulty walking Disorder of sacroiliac joint 01/14/2024 DM type 2 (diabetes mellitus, type 2) ([facility]) Elevated troponin 01/14/2024 Epigastric pain 01/14/2024 Gait instability 01/14/2024 GERD (gastroesophageal reflux disease) Hallucinations, visual 01/14/2024 Hemosiderin pigmentation of skin 01/14/2024 Hypertension Hypomagnesemia 01/14/2024 Hypothyroidism 01/14/2024 Iron deficiency anemia 01/14/2024 Irritable bowel disease 01/14/2024 Kidney disease 01/14/2024 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) Morbid obesity with BMI of 45.0-49.9, adult (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) ([facility]) 01/14/2024 OM (onychomycosis) On home oxygen therapy 01/14/2024 TANYA (obstructive sleep apnea) Osteoarthritis of back Other chronic pain 01/14/2024 Peripheral edema 01/14/2024 Pruritic erythematous rash 01/14/2024 Rhabdomyolysis 01/14/2024 Stage 3 chronic kidney disease ([facility]) 01/14/2024 Symptomatic varicose veins of both lower extremities 01/14/2024 Thyroid disease 01/14/2024 Type 2 diabetes mellitus without complications ([facility]) 01/14/2024 Ulcer of left lower leg ([facility]) 01/14/2024 UTI (urinary tract infection) 01/14/2024 Venous reflux 01/14/2024 Venous stasis ulcer limited to breakdown of skin without varicose veins ([facility]) 01/14/2024 Vitamin D deficiency, unspecified Medications: Current [...] Needle Micro U/F 32G X 6 MM [facility], , Disp: , Rfl: budesonide-formoterol (Symbicort) 160-4.5 [...] Gluc Sensor (FreeStyle Alfredo 2 Sensor) [facility], , Disp: , Rfl: Continuous Glucose [place] Attendant (FreeStyle Alfredo 3 [place]) device, USE DIRECTED, Disp: 1 each, Rfl: 0 Continuous Glucose Sensor (FreeStyle Alfredo 3 Plus Sensor) [facility], 1 Bar Every 15 Days, Disp: 6 [...] MG tablet, , Disp: , Rfl: HYDROcodone-acetaminophen ([place]) 5-325 MG tablet, , Disp: , Rfl: [...] (twelve) hours, Disp: , Rfl: theophylline ER (Thad-24) 200 MG 24 hr capsule, Take 1 [...] and negative PT pedal pulses NEURO: 5.07 Laurel Rosi monofilament test diminished to digits and [...] offer for medication and/or prescription refill. Mack Tsai DPM documented in this encounterUniversity of Missouri Health [id number] Evaluation note* Diagnosis Onset Date Resolution Status Admit Date History of iron deficiency anemia acuteMay 2024 10:58amPruritic erythematous rashacuteMay 2024 10:58am Bipolar 1 disorderchronicMay 2024 10:58amCOPD (chronic obstructive pulmonary disease)chronicMay 2024 10:58amDegenerative joint disease of cervical and lumbar spinechronicMay 2024 10:58amDiabetic neuropathy associated with diabetes mellitus due to underlyingchronicMay 2024 10:58am HypertensionchronicMay 2024 10: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)chronicMay 2024 10:58amCKD (chronic kidney disease) stage 3, GFR 30-59 ml/minresolvedMay 2024 10:58am Morbid obesity with BMI of 45.0-49.9, adultresolvedMay 2024 10:58amVenous stasis dermatitis of both lower extremitiesresolvedMay 2024 10:58amCancer related painacuteJune 2024 11:08amHistory of iron deficiency anemiaacute [place] 2024 11:08amIgG myelomaacuteJune 2024 11:08amPruritic erythematous rashacuteJune 2024 11:08amBipolar 1 disorderchronicJune 2024 11:08amCOPD (chronic obstructive pulmonary disease)chronicJune 2024 11:08amDiabetic neuropathy associated with diabetes mellitus due to underlying chronicJune 2024 11:08amHypertensionchronicJune 2024 11:08amCKD (chronic kidney disease) stage 3, GFR 30-59 ml/minresolvedJune 2024 11:08amMorbid obesity with BMI of 45.0-49.9, adultresolvedJune 2024 11:08amVenous stasis dermatitis of both lower extremitiesresolvedJune 2024 11:08amCancer related painacuteJuly 2024 1:46pmEncounter for chemotherapy managementacuteJuly 2024 1:46pmHistory of iron deficiency anemiaacuteJuly 2024 1:46pmIgG myelomaacuteJuly 2024 1:46pmPruritic erythematous rashacuteJuly 2024 1:46pmBipolar 1 disorderchronicJuly 2024 1:46pm COPD (chronic obstructive pulmonary disease)chronicJuly 2024 1:46pm Diabetic neuropathy associated with diabetes mellitus due to underlyingchronic [place]za 2024 1:46pmHypertensionchronicJuly 2024 1:46pmCKD (chronic kidney disease) stage 3, GFR 30-59 ml/minresolvedJuly 2024 1:46pmMorbid obesity with BMI of 45.0-49.9, adultresolvedJuly 2024 1:46pmVenous stasis dermatitis of both lower extremitiesresolvedJuly 2024 1:46pmCOPD (chronic obstructive pulmonary disease)chronicAugust 2024 9:35amDegenerative joint disease of cervical and lumbar spinechronicAugust 2024 9:35am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)chronic November 22, 2024 9:35amCKD (chronic kidney disease) stage 3, GFR 30-59 ml/min resolvedAugust 2024 9:35amIron deficiency anemiaresolvedAugust 2024 9:35amBipolar disorder with depressioninactiveAugust 2024 9:35amDiabetes inactiveAugust 2024 9:35amMorbid obesityinactiveAugust 2024 9:35am Cancer related painacuteAugust 2024 11:23amEncounter for chemotherapy managementacuteAugust 2024 11:23amHistory of iron deficiency anemiaacute November 22, 2024 11:23amIgG myelomaacuteAugust 2024 11:23amPruritic erythematous rashacuteAugust 2024 11:23amBipolar 1 disorderchronicAugust 2024 11:23amCOPD (chronic obstructive pulmonary disease)chronicAugust 2024 11:23amDiabetic neuropathy associated with diabetes mellitus due to underlyingchronicAugust 2024 11:23amHypertensionchronicAugust 2024 11:23amCKD (chronic kidney disease) stage 3, GFR 30-59 ml/minresolvedAugust 2024 11:23amMorbid obesity with BMI of 45.0-49.9, adultresolvedAugust 2024 11:23amVenous stasis dermatitis of both lower extremitiesresolved November 22, 2024 11:23am [facility] Work Phone: 1(832) 132-242305-15-2025 History of Present illness Narrative* Svetlana Garcia DO - 08/25/2024 1:30 PM EDT Images from the original note were not included. Kelsea Turcios presents today for follow up on COPD and sleep apnea. She was last seen 6 months ago. She states her breathing has been fairly stable. She did require a course of antibiotics since herlast office visit, but otherwise states she has been doing well. She denies any current complaints of increasing shortness breath at rest with exertion. She does continue with regular use of her inhaled medications including albuterol as needed, Symbicort twice daily, oxygen at all times, and theophylline. She states that the pharmacy does reach out to us for refills when they are needed. She denies any current complaints of chest pain, palpitations, fevers, chills, sweats, or recent unintentional weight changes. She does remain compliant with her CPAP machine. She does average at least 6-7 hours per night with use of the machine. She denies any snoring or apneas while using the machine. Allergies: Allergies Allergen Reactions Honey Anaphylaxis and Hives Codeine Itching and Rash Morphine Rash Gastrointestinal Upset Tramadol Hallucinations Medications: Current Outpatient Medications: albuterol HFA 90 mcg/act inhaler, INHALE 2 PUFFS IN THE MORNING AND 2 PUFFS IN THE EVENING AND 2 PUFFS BEFORE BEDTIME., Disp: 18 g, Rfl: 5 amLODIPine (Norvasc) 10 MG tablet, Take 10 mg by mouth Daily, Disp: , Rfl: aspirin 81 MG EC tablet, , Disp: , Rfl: BD Pen Needle Micro U/F 32G X 6 MM [facility], , Disp: , Rfl: budesonide-formoterol (Symbicort) 160-4.5 [...] Gluc Sensor (FreeStyle Alfredo 2 Sensor) [facility], , Disp: , Rfl: Continuous Glucose [place] Attendant (FreeStyle Alfredo 3 [place]) device, 1 Device Daily, Disp: 1 each, Rfl: 0 Continuous Glucose Sensor (FreeStyle Alfredo 3 Plus Sensor) [facility], 1 Bar Every 15 Days, Disp: 6 [...] MG tablet, , Disp: , Rfl: HYDROcodone-acetaminophen ([place]) 5-325 MG tablet, , Disp: , Rfl: [...] 45 MG tablet, , Disp: , Rfl: olopatadine (Patanol) 0.1 % ophthalmic solution, , [...] every 12 (twelve) hours, Disp: , Rfl: tiZANidine (Zanaflex) 4 MG tablet, Take 4 mg by mouth in the evening, Disp: , Rfl: zonisamide (Zonegran) 25 MG capsule, , Disp: , Rfl: azithromycin (Zithromax) 250 MG tablet, Take 2 by mouth today then 1 daily for 4 days (Patient not taking: Reported on 08/25/2024), Disp: 6 tablet, Rfl: 0 benzonatate (Tessalon) 100 MG capsule, , Disp: , Rfl: guaiFENesin (Mucinex) 600 MG 12 hr tablet, Take 1 tablet (600 mg) by mouth in the morning and 1 tablet (600 mg) before bedtime. Do not crush, chew, or split.. (Patient not taking: Reported on 08/25/2024), Disp: 60 tablet, Rfl: 11 montelukast (Singulair) 10 MG tablet, Take 1 tablet (10 mg) by mouth 1 (one) time each day at the same time, Disp: 30 tablet, Rfl: 5 theophylline ER (Thad-24) 200 MG 24 hr capsule, Take 1 capsule (200 mg) by mouth 1 (one) time each day at the same time, Disp: 30 capsule, Rfl: 5 triamcinolone (Kenalog) 0.1 % ointment, , Disp: , Rfl: Past Medical History: Past Medical History: Diagnosis Date Acute hyperkalemia 01/14/2024 Acute metabolic encephalopathy 01/14/2024 PETER (acute kidney injury) ([facility]) 01/14/2024 Anemia Anxiety Arthritis Bipolar 1 disorder ([facility]) 01/14/2024 Bipolar disorder with depression ([facility]) 01/14/2024 Breast cancer screening by mammogram 01/14/2024 Chronic depression ([facility]) 01/14/2024 Chronic fatigue 01/14/2024 Chronic hypercapnic respiratory failure ([facility]) 01/14/2024 Chronic kidney disease, stage 3 unspecified ([facility]) ([facility]) COPD (chronic obstructive pulmonary disease) ([facility]) Debility 01/14/2024 Degenerative joint disease of cervical and lumbar spine 01/14/2024 Dehydration 01/14/2024 Diabetes ([facility]) 01/14/2024 Diabetic neuropathy ([facility]) 07/15/2023 Diarrhea 01/14/2024 Difficulty walking Disorder of sacroiliac joint 01/14/2024 DM type 2 (diabetes mellitus, type 2) ([facility]) Elevated troponin 01/14/2024 Epigastric pain 01/14/2024 Gait instability 01/14/2024 GERD (gastroesophageal reflux disease) Hallucinations, visual 01/14/2024 Hemosiderin pigmentation of skin 01/14/2024 Hypertension ([facility]) Hypomagnesemia 01/14/2024 Hypothyroidism ([facility]) 01/14/2024 Iron deficiency anemia 01/14/2024 Irritable bowel disease 01/14/2024 Kidney disease 01/14/2024 FPC (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 ([facility]) 01/14/2024 Lumbar degenerative disc disease 01/14/2024 Lumbar spondylolysis Lumbosacral spondylosis without myelopathy 01/14/2024 Major depressive disorder with psychotic features ([facility]) 01/14/2024 Mixed hyperlipidemia ([facility]) Monoclonal gammopathy 01/14/2024 Morbid obesity with BMI of 40.0-44.9, adult ([facility]) Morbid obesity with BMI of 45.0-49.9, adult ([facility]) 01/14/2024 Multiple falls 01/14/2024 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) 01/14/2024 OM (onychomycosis) On home oxygen therapy 01/14/2024 TANYA (obstructive sleep apnea) Osteoarthritis of back Other chronic pain 01/14/2024 Peripheral edema 01/14/2024 Pruritic erythematous rash 01/14/2024 Rhabdomyolysis 01/14/2024 Stage 3 chronic kidney disease (HCC) ([facility]) 01/14/2024 Symptomatic varicose veins of both lower extremities 01/14/2024 Thyroid disease ([facility]) 01/14/2024 Type 2 diabetes mellitus without complications 01/14/2024 Ulcer of left lower leg ([facility]) 01/14/2024 UTI (urinary tract infection) 01/14/2024 Venous reflux 01/14/2024 Venous stasis ulcer limited to breakdown of skin without varicose veins ([facility]) 01/14/2024 Vitamin D deficiency, unspecified Social History: Social History Tobacco Use Smoking status: Never Passive exposure: Never Smokeless tobacco: Never Substance Use Topics Alcohol use: Never Comment: Caffeine intake: 2-3 cups per day Vitals: Pulse 75 Ht 5' 4 Wt 226 lb SpO2 98% BMI 38.79 kg/m Exam: Heart: regular rate Lungs: clear to auscultation bilaterally, no wheezes/rales/rhonchi, no resp distress Extremities: no edema noted, no visible rashes Neuro: alert, oriented x3 Imaging Reviewed: None Assessment/Plan: Diagnoses and all orders for this visit: Chronic obstructive pulmonary disease, unspecified COPD type ([facility]) Obstructive sleep apnea syndrome COPD -- she does continue with regular use of inhaled medications. She does not need refills at this time. She states the pharmacy will reach out when refills are needed. Given this she does have good control her breathing, no changes will be made. She will follow here in 6 months time unless needed before then. She will continue with regular use of her oxygen as well. TANYA -- she does remain compliant with use of her CPAP machine on a regular basis. She does use thison average 6-7 hours per night. She denies any snoring or apneas while using the machine. She will continue with regular use of her CPAP given that she has been benefitting from and tolerating its use. Follow up in about 6 months (around 02/25/2025) for COPD, TANYA. Svetlana Garcia DO documented in this encounterUniversity of Missouri Health [id number] History of Present illness Narrative* Jeannie Aguilar MD - 08/22/2024 11:30 AM EDT Kelsea Turcios is a 63 y.o. female No ref. provider found presents with chief complaint of Diabetesand Follow-up HPI: History of Present Illness The patient is a 63-year-old female who presents for evaluation of diabetes. She has been making efforts to manage her weight in order to start Ozempic. She reports no history of pancreatitis and has not previously been on Ozempic. Her current medication regimen includes Lantus 50 units long-acting insulin and NovoLog 40 units short-acting insulin, administered before each meal. Additionally, she is on Farxiga. Continuous glucose monitoring is performed using the [employer] Alfredo system, although she reports difficulty in obtaining readings from the device. Results Labs: A1c is 10.9%, improved from previous value of 13%. Blood sugar is 186 mg/dL. Continuous Glucose Monitoring (CGM): - CGM System: [employer] Alfredo - Mean glucose: 214 mg/dL over 14 days, 319 mg/dL over 30 days IM : 05/2024 follow up visit on 05/25/2024, a1C 13.4, BG 161 , CGM 3-12-87 % AVG 311. on Farxiga 5, lantus 50 units, Lyumjev 40 units bid plus sliding scale #2. OFF HER MEDS FOR 2-3 WEEKS IM : 01/2024 follow up visit on 01/20/2024, a1C 9.1, BG 126 , CGM 3-51-45 % AVG 171. on Farxiga 5, lantus 50 units, Lyumjev 40 units bid plus sliding scale #2. IM : 10/2023 follow up visit on 10/21/2023, a1C 9.1, BG 116 , CGM 6-34-60 % AVG 193. on Farxiga 5, lantus 40 units, Lyumjev 40 units bid plus sliding scale #2. IM : 07/2023 follow up visit on 08/05/2023, a1C 9.2, BG 63, CGM 4-30-66 % AVG 201. on xiga 5, Basaglar 40 units, Lyumjev 30-35 units bid plus sliding scale #2. lab on 07/2023 GFR 38, TC 134M HDL 45, LDL 71. IM : 04/2023 follow up visit on 05/06/2023, a1C 11.3, BG 331 CGM 0-14-86 % AVG 272. on Farxiga 5, Basaglar 30 units, Lyumjev 17-20 units bid plus sliding scale #2. IM : 01/2023 follow up visit on 02/04/2023, urgent visit for high bg, 174 in the offcie, CGM 0-16-83% AVG 252. on Farxiga 5, Basaglar 36 units, Lyumjev 20-30 units bid plus sliding scale #2. had burning during injection site IM : 11/2022 follow up visit on 11/19/2022, A1c 8.6, bg 82, CGM 0-51-49 % AVG 182. off metformin, on Farxiga 5, Basaglar 30 units, Lyumjev 20 mL units bid plus sliding scale #2. IM 08/2022 follow up visit on 08/13/2022, A1c 7.5, bg 72, cgm 3-67-30 % AVG 156. on metformin 850 once and Farxiga 5, Basaglar 25 units, Lyumjev 10 mL units bid plus sliding scale #2. lab CR 1..65, GFR 34, TC 146, HDL 51, LDL 82, VIT D 47, AL/CR 51. HPI: 04/2022 New patient sent from Pain Management in [place], Dr. Brenden Groves, for uncontrolled diabetes. A1c in the office 7.9 , blood sugar 153. She has diabetes since long time. She has COPD, using home oxygen. She has kidney problem. I do not know what is her GFR. Gabapentin dropped from 900 t.i.d. to 300 t.i.d. and started Tramadol. For diabetes, she is using Basaglar 23 around noontime and metformin 850 once a day and Farxiga 5 mg. Her CGM shows 0% in low range, 32 in good range, 68 in high range, average 211. SUBJECTIVE: MEDICATIONS: Current Outpatient Medications Medication Instructions albuterol HFA 90 mcg/act inhaler 2 puffs, Inhalation, 3 times daily amLODIPine (NORVASC) 10 mg, Daily aspirin 81 MG EC tablet azithromycin (Zithromax) 250 MG tablet Take 2 by mouth today then 1 daily for 4 days BD Pen Needle Micro U/F 32G X 6 MM misc benzonatate (Tessalon) 100 MG capsule budesonide-formoterol (Symbicort) 160-4.5 MCG/ACT inhaler 2 puffs, Inhalation, 2 times daily RT, Rinse mouth with water after use to reduce aftertaste and incidence of candidiasis. Do not swallow. Cholecalciferol (Vitamin D) 50 MCG (2000 UT) capsule 1 capsule, Every 24 hours clobetasol (Temovate) 0.05 % cream cloNIDine (Catapres) 0.1 MG tablet colestipol (COLESTID) 2 g, Every 24 hours Continuous Blood Gluc Sensor (FreeStyle Alfredo 2 Sensor) misc Continuous Glucose Fuel Island Attendant (FreeStyle Alfredo 3 [place]) device 1 Device, Does not apply, Daily Continuous Glucose Sensor (FreeStyle Alfredo 3 Plus Sensor) misc 1 Bar, Does not apply, Every 15 Days Coreg 25 mg, Every 12 hours dapagliflozin (FARXIGA) 10 mg, Oral, Daily diclofenac sodium 1 % gel APPLY 4 GRAMS TO AFFECTED AREA 4 TIMES DAILY dicyclomine (BENTYL) 20 mg, 3 times daily PRN DULoxetine (CYMBALTA) 60 mg, Daily Fetzima 120 MG extended release capsule fluticasone (Flonase) 50 MCG/ACT nasal spray USE 1 SPRAY INTO EACH NOSTRIL EVERY DAY FOR 30 DAYS furosemide (Lasix) 40 MG tablet gabapentin (Neurontin) 600 MG tablet guaiFENesin (MUCINEX) 600 mg, Oral, 2 times daily, Do not crush, chew, or split. HYDROcodone-acetaminophen ([place]) 5-325 MG tablet hydrOXYzine HCl (Atarax) 10 MG tablet ipratropium-albuterol (Duo-Neb) 0.5-2.5 mg/3 mL nebulizer solution 3 mL, Nebulization, 4 times daily PRN Lantus SoloStar 50 Units, Subcutaneous, Every morning levothyroxine (Synthroid, Levoxyl) 75 MCG tablet loperamide (Imodium A-D) 2 MG tablet 1 tablet Lyumjev KwikPen 40 Units, Subcutaneous, 3 times daily with meals mirtazapine (Remeron) 45 MG tablet montelukast (SINGULAIR) 10 mg, Oral, Every 24 hours NovoLOG FLEXPEN 40 Units, Subcutaneous, 3 times daily before meals olopatadine (Patanol) 0.1 % ophthalmic solution omeprazole (PriLOSEC) [address] capsule Every 24 hours oxybutynin XL (Ditropan XL) 10 MG 24 hr tablet Every 24 hours Ozempic (0.25 or 0.5 MG/DOSE) 0.5 mg, Subcutaneous, Weekly prednisoLONE acetate (Pred-Forte) 1 % ophthalmic suspension Refresh Tears 0.5 % ophthalmic solution Rexulti 4 MG tablet 1 tablet, Daily sucralfate (Carafate) 1 g tablet Every 12 hours theophylline ER (THAD-24) 200 mg, Oral, Every 24 hours tiZANidine (ZANAFLEX) 4 mg, Every evening triamcinolone (Kenalog) 0.1 % ointment zonisamide (Zonegran) 25 MG capsule ALLERGIES: Allergies Allergen Reactions Honey Anaphylaxis and Hives Codeine Itching and Rash Morphine Rash Other Reaction(s): Gastrointestinal Upset Tramadol Hallucinations Past Medical History: Diagnosis Date Acute hyperkalemia 01/14/2024 Acute metabolic encephalopathy 01/14/2024 PETER (acute kidney injury) ([facility]) 01/14/2024 Anemia Anxiety Arthritis Bipolar 1 disorder ([facility]) 01/14/2024 Bipolar disorder with depression ([facility]) 01/14/2024 Breast cancer screening by mammogram 01/14/2024 Chronic depression ([facility]) 01/14/2024 Chronic fatigue 01/14/2024 Chronic hypercapnic respiratory failure ([facility]) 01/14/2024 Chronic kidney disease, stage 3 unspecified ([facility]) ([facility]) COPD (chronic obstructive pulmonary disease) ([facility]) Debility 01/14/2024 Degenerative joint disease of cervical and lumbar spine 01/14/2024 Dehydration 01/14/2024 Diabetes ([facility]) 01/14/2024 Diabetic neuropathy ([facility]) 07/15/2023 Diarrhea 01/14/2024 Difficulty walking Disorder of sacroiliac joint 01/14/2024 DM type 2 (diabetes mellitus, type 2) ([facility]) Elevated troponin 01/14/2024 Epigastric pain 01/14/2024 Gait instability 01/14/2024 GERD (gastroesophageal reflux disease) Hallucinations, visual 01/14/2024 Hemosiderin pigmentation of skin 01/14/2024 Hypertension ([facility]) Hypomagnesemia 01/14/2024 Hypothyroidism ([facility]) 01/14/2024 Iron deficiency anemia 01/14/2024 Irritable bowel disease 01/14/2024 Kidney disease 01/14/2024 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 ([facility]) 01/14/2024 Lumbar degenerative disc disease 01/14/2024 Lumbar spondylolysis Lumbosacral spondylosis without myelopathy 01/14/2024 Major depressive disorder with psychotic features ([facility]) 01/14/2024 Mixed hyperlipidemia ([facility]) Monoclonal gammopathy 01/14/2024 Morbid obesity with BMI of 40.0-44.9, adult ([facility]) Morbid obesity with BMI of 45.0-49.9, adult ([facility]) 01/14/2024 Multiple falls 01/14/2024 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) ([facility]) 01/14/2024 OM (onychomycosis) On home oxygen therapy 01/14/2024 TANYA (obstructive sleep apnea) Osteoarthritis of back Other chronic pain 01/14/2024 Peripheral edema 01/14/2024 Pruritic erythematous rash 01/14/2024 Rhabdomyolysis 01/14/2024 Stage 3 chronic kidney disease (HCC) ([facility]) 01/14/2024 Symptomatic varicose veins of both lower extremities 01/14/2024 Thyroid disease ([facility]) 01/14/2024 Type 2 diabetes mellitus without complications ([facility]) 01/14/2024 Ulcer of left lower leg ([facility]) 01/14/2024 UTI (urinary tract infection) 01/14/2024 Venous reflux 01/14/2024 Venous stasis ulcer limited to breakdown of skin without varicose veins ([facility]) 01/14/2024 Vitamin D deficiency, unspecified Past Surgical History: Procedure Laterality Date CHOLECYSTECTOMY CT GUIDED IMAGING FOR NEEDLE PLACEMENT 02/24/2023 CT GUIDED IMAGING FOR NEEDLE PLACEMENT HYSTERECTOMY complete - no cancer REVIEW OF SYMPTOMS: 14 POINT OF SYSTEM REVIEWED AND NEGATIVE OBJECTIVE: Constitutional: Afebrile @ home; no weakness or night sweats SKIN: No change in skin color; no itching, rash or lesions; no hair loss; HEENT: No HAs or injury; no dizziness; No difficulty with vision; no eye pain, discharge or lesions; no hearing loss or difficulty; no nasal discharge, NECK: No pain, limitation of motion, lumps or swollen glands RESP: No cough, wheezing or difficulty breathing. No CP with breathing; CARDIO: No CP , SOB or fatigue, No edema, palpitations or dyspnea with exertion GI: No N/V/D or abd. pain; good appetite with no recent change. No heart burn, liver or gallbladderdisease; no rectal bleeding or pain : No urinary pain , frequency or odor. MUSCULOSKELETAL: No muscle pain or cramps; no extremity weakness.No joint pain, stiffness, swellingor limitation of movement NEUROLOGY: No H/O seizures, stroke or fainting. No weakness, tremors. Hematology: No bleeding problems or excessive bruising ENDOCRINE: No increase in hunger, thirst or urination; admits compliance to medical management plan Feet: numbness tingling yes , ulcers or skin break no Lab Results Component Value Date HGBA1C 10.9 08/22/2024 HGBA1C 13.4 05/25/2024 HGBA1C 9.1 01/20/2024 Lab Results Component Value Date GLU 186 08/22/2024 GLU 166 05/25/2024 GLU 264 (H) 02/24/2024 11/24/2023 8:31 AM 01/14/2024 1:41 PM 01/20/2024 10:51 AM 02/02/2024 8:17 AM 04/15/2024 8:28 AM 05/25/2024 10:41 AM 08/22/2024 11:37 AM Vitals BMI 43.43 kg/m2 41.54 kg/m2 48.63 kg/m2 48.63 kg/m2 48.63 kg/m2 44.33 kg/m2 44.72 kg/m2 BSA (m2) 2.28 m2 2.23 m2 2.19 m2 2.19 m2 2.19 m2 2.09 m2 2.1 m2 Systolic 128 135 120 125 120 120 Diastolic 83 75 78 80 86 78 Heart Rate 74 97 81 81 97 71 SpO2 98 % 94 % 95 % Resp 18 18 18 18 16 Height (in) 5' 4 5' 4 5' 5' 5' 5' 5' Weight (lb) 253 242 249 249 249 227 229 Visit Report Report Report Report Report Report Report Report ASSESSMENT AND PLAN: Assessment/Plan Diagnoses and all orders for this visit: Type 2 diabetes mellitus with hyperglycemia, with long-term current use of insulin ([facility]) - POCT glucose manually resulted - POCT glycosylated hemoglobin (Hb A1C) docked device - Continuous Glucose Sensor ([employer] Alfredo 3 Plus Sensor) misc; 1 Bar Every 15 Days - Continuous Glucose Fuel Island Attendant ([employer]Style Alfredo 3 [place]) device; 1 Device Daily - semaglutide (Ozempic, 0.25 or 0.5 MG/DOSE,) 2 MG/1.5ML solution pen-injector; Inject 0.5 mg underthe skin 1 (one) time per week Vitamin D deficiency Primary hypertension ([facility]) Hyperlipemia, mixed ([facility]) Insulin long-term use ([facility]) Encounter for dietary consultation Stage 3b chronic kidney disease (HCC) ([facility]) Class 3 severe obesity due to excess calories with serious comorbidity and body mass index (BMI) of45.0 to 49.9 in adult Type 2 diabetes mellitus with hyperglycemia ([facility]) - dapagliflozin (Farxiga) 10 MG; Take 1 tablet (10 mg) by mouth Daily Assessment & Plan 1. Diabetes mellitus: - A1c level has improved from 13 to 10.9. - Blood glucose level remains elevated at 186. - Discussed the importance of monitoring diet to manage blood sugar levels. - Provided a sample of Ozempic 0.25 mg for 4 weeks, followed by a prescription for Ozempic 0.5 mg; continued Lantus 50 units, NovoLog 40 units with every meal, and Farxiga as usual; ordered new [employer] system 3 including meter and sensor. Follow up in about 3 months (around 11/22/2024). documented in this [facility]04-28-2025 Evaluation note* Diagnosis Onset Date Resolution Status Admit Date BMI 40.0-44.9, adult acuteApril 2024 8:21amMorbid (severe) obesity due to excess caloriesacute August 08, 2024 8:21amStage 3b chronic kidney diseaseacuteApril 2024 8:21amSwelling of hand jointacuteApril 2024 8:21amType 2 diabetes mellitus with diabetic neuropathy, unspecifiedacuteApril 2024 8:21amBipolar 1 disorderchronicApril 2024 8:21amCOPD (chronic obstructive pulmonary disease)chronicApril 2024 8:21am [facility] Work Phone: 1(674) 419-965404-28-2025 Evaluation note* Diagnosis Onset Date Resolution Status Admit Date BMI 40.0-44.9, adult acuteApril 2024 8:21amMorbid (severe) obesity due to excess caloriesacute August 08, 2024 8:21amStage 3b chronic kidney diseaseacuteApril 2024 8:21amSwelling of hand jointacuteApril 2024 8:21amType 2 diabetes mellitus with diabetic neuropathy, unspecifiedacuteApril 2024 8:21amBipolar 1 disorderchronicApril 2024 8:21amCOPD (chronic obstructive pulmonary disease)chronicApril 2024 8:21amHistory of iron deficiency anemiaacuteMay 2024 10:58amPruritic erythematous rashacuteMay 2024 10:58amBipolar 1 disorderchronicMay 2024 10:58amCOPD (chronic obstructive pulmonary disease)chronicMay 2024 10:58amDegenerative joint disease of cervical and lumbar spinechronicMay 2024 10:58amDiabetic neuropathy associated with diabetes mellitus due to underlyingchronicMay 2024 10:58amHypertension chronicMay 2024 10: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)chronicMay 2024 10:58amCKD (chronic kidney disease) stage 3, GFR 30-59 ml/minresolvedMay 2024 10:58amMorbid obesity with BMI of 45.0-49.9, adultresolvedMay 2024 10:58amVenous stasis dermatitis of both lower extremitiesresolvedMay 2024 10:58amCOPD (chronic obstructive pulmonary disease)chronicJune 2024 11:08amDegenerative joint disease of cervical and lumbar spinechronicJune 2024 11:08am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)chronicJune 2024 11:08amCKD (chronic kidney disease) stage 3, GFR 30-59 ml/minresolved Maria Guadalupe 2024 11:08amIron deficiency anemiaresolvedJune 2024 11:08am Bipolar disorder with depressioninactiveJune 2024 11:08amDiabetesinactive October 06, 2024 11:08amMorbid obesityinactiveJune 2024 11:08amHistory of iron deficiency anemiaacuteJune 2024 11:08amPruritic erythematous rash acuteJune 2024 11:08amBipolar 1 disorderchronicJune 2024 11:08amCOPD (chronic obstructive pulmonary disease)chronicJune 2024 11:08am Degenerative joint disease of cervical and lumbar spinechronicJune 2024 11:08amDiabetic neuropathy associated with diabetes mellitus due to underlying chronicJune 2024 11:08amHypertensionchronicJune 2024 11:08am 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June 2024 11:08amCKD (chronic kidney disease) stage 3, GFR 30-59 ml/minresolvedCarolin[facility] 20[facility] 11:08amMorbid obesity with BMI of 45.0-49.9, adult resolvedJune 2024 11:08amVenous stasis dermatitis of both lower extremitiesresolvedL[facility] 2024 11:08am [facility] Work Phone: 1(308) 813-434404-28-2025 Evaluation note* Diagnosis Onset Date Resolution Status Admit Date BMI 40.0-44.9, adult acuteApril 2024 8:21amMorbid (severe) obesity due to excess caloriesacute August 08, 2024 8:21amStage 3b chronic kidney diseaseacuteApril 2024 8:21amSwelling of hand jointacuteApril 2024 8:21amType 2 diabetes mellitus with diabetic neuropathy, unspecifiedacuteApril 2024 8:21amBipolar 1 disorderchronicApril 2024 8:21amCOPD (chronic obstructive pulmonary disease)chronicApril 2024 8:21amHistory of iron deficiency anemiaacuteMay 2024 10:58amPruritic erythematous rashacuteMay 2024 10:58amBipolar 1 disorderchronicMay 2024 10:58amCOPD (chronic obstructive pulmonary disease)chronicMay 2024 10:58amDegenerative joint disease of cervical and lumbar spinechronicMay 2024 10:58amDiabetic neuropathy associated with diabetes mellitus due to underlyingchronicMay 2024 10:58amHypertension chronicMay 2024 10: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)chronicMay 2024 10:58amCKD (chronic kidney disease) stage 3, GFR 30-59 ml/minresolvedMay 2024 10:58amMorbid obesity with BMI of 45.0-49.9, adultresolvedMay 2024 10:58amVenous stasis dermatitis of both lower extremitiesresolvedMay 2024 10:58amCancer related painacuteJune 2024 11:08amHistory of iron deficiency anemiaacuteJune 2024 11:08amIgG myelomaacuteJune 2024 11:08amPruritic erythematous rash acuteJune 2024 11:08amBipolar 1 disorderchronicJune 2024 11:08amCOPD (chronic obstructive pulmonary disease)chronicJune 2024 11:08amDiabetic neuropathy associated with diabetes mellitus due to underlyingchronicJune 2024 11:08amHypertensionchronicJune 2024 11:08amCKD (chronic kidney disease) stage 3, GFR 30-59 ml/minresolvedJune 2024 11:08amMorbid obesity with BMI of 45.0-49.9, adultresolvedJune 2024 11:08amVenous stasis dermatitis of both lower extremitiesresolvedJune 2024 11:08amCOPD (chronic obstructive pulmonary disease)chronicJuly 2024 1:46pmDegenerative joint disease of cervical and lumbar spinechronicJuly 2024 1:46pm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)chronicJuly 2024 1:46pmCKD (chronic kidney disease) stage 3, GFR 30-59 ml/minresolved Iza 2024 1:46pmIron deficiency anemiaresolvedJuly 2024 1:46pm Bipolar disorder with depressioninactiveJuly 2024 1:46pmDiabetesinactive October 27, 2024 1:46pmMorbid obesityinactiveJuly 2024 1:46pm [facility] Work Phone: 1([phone]) 488-636904-28-2025 Evaluation note* Diagnosis Onset Date Resolution Status Admit Date BMI 40.0-44.9, adult acuteApril 2024 8:21amMorbid (severe) obesity due to excess caloriesacute Kirstin 2024 8:21amStage 3b chronic kidney diseaseacuteApril 2024 8:21amSwelling of hand jointacuteApril 2024 8:21amType 2 diabetes mellitus with diabetic neuropathy, unspecifiedacuteApril 2024 8:21amBipolar 1 disorderchronicApril 2024 8:21amCOPD (chronic obstructive pulmonary disease)chronicApril 2024 8:21amHistory of iron deficiency anemiaacuteMay 2024 10:58amPruritic erythematous rashacuteMay 2024 10:58amBipolar 1 disorderchronicMay 2024 10:58amCOPD (chronic obstructive pulmonary disease)chronicMay 2024 10:58amDegenerative joint disease of cervical and lumbar spinechronicMay 2024 10:58amDiabetic neuropathy associated with diabetes mellitus due to underlyingchronicMay 2024 10:58amHypertension chronicMay 2024 10: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)chronicMay 2024 10:58amCKD (chronic kidney disease) stage 3, GFR 30-59 ml/minresolvedMay 2024 10:58amMorbid obesity with BMI of 45.0-49.9, adultresolvedMay 2024 10:58amVenous stasis dermatitis of both lower extremitiesresolvedMay 2024 10:58amCancer related painacuteJune 2024 11:08amHistory of iron deficiency anemiaacuteJune 2024 11:08amIgG myelomaacuteJune 2024 11:08amPruritic erythematous rash acuteJune 2024 11:08amBipolar 1 disorderchronicJune 2024 11:08amCOPD (chronic obstructive pulmonary disease)chronicJune 2024 11:08amDiabetic neuropathy associated with diabetes mellitus due to underlyingchronicJune 2024 11:08amHypertensionchronicJune 2024 11:08amCKD (chronic kidney disease) stage 3, GFR 30-59 ml/minresolvedJune 2024 11:08amMorbid obesity with BMI of 45.0-49.9, adultresolvedJune 2024 11:08amVenous stasis dermatitis of both lower extremitiesresolvedJune 2024 11:08amCOPD (chronic obstructive pulmonary disease)chronicJuly 2024 1:46pmDegenerative joint disease of cervical and lumbar spinechronicJuly 2024 1:46pm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)chronicJuly 2024 1:46pmCKD (chronic kidney disease) stage 3, GFR 30-59 ml/minresolved Iza 2024 1:46pmIron deficiency anemiaresolvedJuly 2024 1:46pm Bipolar disorder with depressioninactiveJuly 2024 1:46pmDiabetesinactive Iza 2024 1:46pmMorbid obesityinactiveJuly 2024 1:46pmCancer related painacuteJuly 2024 1:46pmEncounter for chemotherapy managementacuteJuly 2024 1:46pmHistory of iron deficiency anemiaacuteJuly 2024 1:46pmIgG myelomaacuteJuly 2024 1:46pmPruritic erythematous rashacuteJuly 2024 1:46pmBipolar 1 disorderchronicJuly 2024 1:46pmCOPD (chronic obstructive pulmonary disease)chronicJuly 2024 1:46pmDiabetic neuropathy associated with diabetes mellitus due to underlyingchronicJuly 2024 1:46pm HypertensionchronicJuly 2024 1:46pmCKD (chronic kidney disease) stage 3, GFR 30-59 ml/minresolvedJuly 2024 1:46pmMorbid obesity with BMI of 45.0- 49.9, adultresolvedJuly 2024 1:46pmVenous stasis dermatitis of both lower extremitiesresolvedJuly 2024 1:46pm [facility] Work Phone: [phone] [id number] History of Present illness Narrative* Jeannie Aguilar MD - 05/25/2024 10:30 AM EST Kelsea Turcios is a 63 y.o. female No ref. provider found presents with chief complaint of No chiefcomplaint on file. HPI: IM : 05/2024 follow up visit on 05/25/2024, a1C 13.4, BG 161 , CGM 3-12-87 % AVG 311. on Farxiga 5, lantus 50 units, Lyumjev 40 units bid plus sliding scale #2. OFF HER MEDS FOR 2-3 WEEKS IM : 01/2024 follow up visit on 01/20/2024, a1C 9.1, BG 126 , CGM 3-51-45 % AVG 171. on Farxiga 5, lantus 50 units, Lyumjev 40 units bid plus sliding scale #2. IM : 10/2023 follow up visit on 10/21/2023, a1C 9.1, BG 116 , CGM 6-34-60 % AVG 193. on Farxiga 5, lantus 40 units, Lyumjev 40 units bid plus sliding scale #2. IM : 07/2023 follow up visit on 08/05/2023, a1C 9.2, BG 63, CGM 4-30-66 % AVG 201. on Farxiga 5, Basaglar 40 units, Lyumjev 30-35 units bid plus sliding scale #2. lab on 07/2023 GFR 38, TC 134M HDL 45, LDL 71. IM : 04/2023 follow up visit on 05/06/2023, a1C 11.3, BG 331 CGM 0-14-86 % AVG 272. on Farxiga 5, Basaglar 30 units, Lyumjev 17-20 units bid plus sliding scale #2. IM : 01/2023 follow up visit on 02/04/2023, urgent visit for high bg, 174 in the offcie, CGM 0-16-83% AVG 252. on Farxiga 5, Basaglar 36 units, Lyumjev 20-30 units bid plus sliding scale #2. had burning during injection site IM : 11/2022 follow up visit on 11/19/2022, A1c 8.6, bg 82, CGM 0-51-49 % AVG 182. off metformin, on Farxiga 5, Basaglar 30 units, Lyumjev 20 mL units bid plus sliding scale #2. IM 08/2022 follow up visit on 08/13/2022, A1c 7.5, bg 72, cgm 3-67-30 % AVG 156. on metformin 850 once and Farxiga 5, Basaglar 25 units, Lyumjev 10 mL units bid plus sliding scale #2. lab CR 1..65, GFR 34, TC 146, HDL 51, LDL 82, VIT D 47, AL/CR 51. HPI: 04/2022 New patient sent from Pain Management in [place], Dr. Brenden Groves, for uncontrolled diabetes. A1c in the office 7.9 , blood sugar 153. She has diabetes since long time. She has COPD, using home oxygen. She has kidney problem. I do not know what is her GFR. Gabapentin dropped from 900 t.i.d. to 300 t.i.d. and started Tramadol. For diabetes, she is using Basaglar 23 around noontime and metformin 850 once a day and Farxiga 5 mg. Her CGM shows 0% in low range, 32 in good range, 68 in high range, average 211. SUBJECTIVE: MEDICATIONS: Current Outpatient Medications Medication Instructions albuterol HFA 90 mcg/act inhaler 2 puffs, Inhalation, 3 times daily amLODIPine (NORVASC) 10 mg, Oral, Daily aspirin 81 MG EC tablet Daily azithromycin (Zithromax) 250 MG tablet Take 2 by mouth today then 1 daily for 4 days BD Pen Needle Micro U/F 32G X 6 MM misc USE DIRECTED 4 TIMES A DAY benzonatate (Tessalon) 100 MG capsule TAKE 1 CAPSULE BY MOUTH THREE TIMES A DAY NEEDED FOR 5 DAYS budesonide-formoterol (Symbicort) 160-4.5 MCG/ACT inhaler 2 puffs, Inhalation, 2 times daily RT, Rinse mouth with water after use to reduce aftertaste and incidence of candidiasis. Do not swallow. Cholecalciferol (Vitamin D) 50 MCG (2000 UT) capsule 1 capsule, Oral, Every 24 hours clobetasol (Temovate) 0.05 % cream PLEASE SEE ATTACHED FOR DETAILED DIRECTIONS cloNIDine (Catapres) 0.1 MG tablet Twice daily colestipol (COLESTID) 2 g, Oral, Every 24 hours Continuous Blood Gluc Sensor (FreeStyle Alfredo 2 Sensor) misc USE DIRECTED EVERY 14 DAYS Coreg 25 mg, Oral, Every 12 hours dapagliflozin (FARXIGA) 10 mg, Oral, Daily diclofenac sodium 1 % gel APPLY 4 GRAMS TO AFFECTED AREA 4 TIMES DAILY dicyclomine (BENTYL) 20 mg, Oral, 3 times daily PRN DULoxetine (CYMBALTA) 60 mg, Oral, Daily Fetzima 120 MG extended release capsule fluticasone (Flonase) 50 MCG/ACT nasal spray USE 1 SPRAY INTO EACH NOSTRIL EVERY DAY FOR 30 DAYS furosemide (Lasix) 40 MG tablet TAKE 1.5 TABLETS BY MOUTH ONCE DAILY gabapentin (Neurontin) 600 MG tablet TAKE 1.5 TABS IN AM, 1 TAB AT NOON, AND 1.5 TABS AT BEDTIME guaiFENesin (MUCINEX) 600 mg, Oral, 2 times daily, Do not crush, chew, or split. HYDROcodone-acetaminophen ([place]) 5-325 MG tablet TAKE 1 TABLET BY MOUTH THREE TIMES A DAY NEEDED FOR PAIN hydrOXYzine HCl (Atarax) 10 MG tablet TAKE 1 TO 2 TABLETS THREE TIMES A DAY NEEDED ipratropium-albuterol (Duo-Neb) 0.5-2.5 mg/3 mL nebulizer solution 3 mL, Nebulization, 4 times daily PRN Lantus SoloStar 50 Units, Subcutaneous, Every morning levothyroxine (Synthroid, Levoxyl) 75 MCG tablet TAKE 1 TABLET BY MOUTH EVERY DAY IN THE MORNING ONEMPTY STOMACH loperamide (Imodium A-D) 2 MG tablet 1 tablet Lyumjev KwikPen 40 Units, Subcutaneous, 3 times daily with meals mirtazapine (Remeron) 45 MG tablet montelukast (SINGULAIR) 10 mg, Oral, Every 24 hours NovoLOG FLEXPEN 100 UNIT/ML pen PLEASE SEE ATTACHED FOR DETAILED DIRECTIONS olopatadine (Patanol) 0.1 % ophthalmic solution INSTILL 1 DROP INTO AFFECTED EYE TWICE A DAY omeprazole (PriLOSEC) [address] capsule Every 24 hours oxybutynin XL (Ditropan XL) 10 MG 24 hr tablet Every 24 hours prednisoLONE acetate (Pred-Forte) 1 % ophthalmic suspension PLEASE SEE ATTACHED FOR DETAILED DIRECTIONS Refresh Tears 0.5 % ophthalmic solution INSTILL 1 DROP INTO EACH EYE 3 TIMES A DAY NEEDED 30 DAYS Rexulti 4 MG tablet 1 tablet, Oral, Daily sucralfate (Carafate) 1 g tablet Every 12 hours theophylline ER (THAD-24) 200 mg, Oral, Every 24 hours tiZANidine (ZANAFLEX) 4 mg, Oral, Every evening triamcinolone (Kenalog) 0.1 % ointment APPLY TWICE DAILY FOR 2 WEEKS APPLY TO LOWER LEGS DISCUSSED zonisamide (Zonegran) 25 MG capsule Twice daily ALLERGIES: Allergies Allergen Reactions Honey Anaphylaxis and Hives Codeine Itching and Rash Morphine Rash Other Reaction(s): Gastrointestinal Upset Tramadol Hallucinations Past Medical History: Diagnosis Date Acute hyperkalemia 01/14/2024 Acute metabolic encephalopathy 01/14/2024 PETER (acute kidney injury) ([facility]) 01/14/2024 Anemia Anxiety Arthritis Bipolar 1 disorder ([facility]) 01/14/2024 Bipolar disorder with depression ([facility]) 01/14/2024 Breast cancer screening by mammogram 01/14/2024 Chronic depression ([facility]) 01/14/2024 Chronic fatigue 01/14/2024 Chronic hypercapnic respiratory failure ([facility]) 01/14/2024 Chronic kidney disease, stage 3 unspecified ([facility]) ([facility]) COPD (chronic obstructive pulmonary disease) ([facility]) Debility 01/14/2024 Degenerative joint disease of cervical and lumbar spine 01/14/2024 Dehydration 01/14/2024 Diabetes ([facility]) 01/14/2024 Diabetic neuropathy ([facility]) 07/15/2023 Diarrhea 01/14/2024 Difficulty walking Disorder of sacroiliac joint 01/14/2024 DM type 2 (diabetes mellitus, type 2) ([facility]) Elevated troponin 01/14/2024 Epigastric pain 01/14/2024 Gait instability 01/14/2024 GERD (gastroesophageal reflux disease) Hallucinations, visual 01/14/2024 Hemosiderin pigmentation of skin 01/14/2024 Hypertension ([facility]) Hypomagnesemia 01/14/2024 Hypothyroidism ([facility]) 01/14/2024 Iron deficiency anemia 01/14/2024 Irritable bowel disease 01/14/2024 Kidney disease 01/14/2024 FPC (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 ([facility]) 01/14/2024 Lumbar degenerative disc disease 01/14/2024 Lumbar spondylolysis Lumbosacral spondylosis without myelopathy 01/14/2024 Major depressive disorder with psychotic features ([facility]) 01/14/2024 Mixed hyperlipidemia ([facility]) Monoclonal gammopathy 01/14/2024 Morbid obesity with BMI of 40.0-44.9, adult ([facility]) Morbid obesity with BMI of 45.0-49.9, adult ([facility]) 01/14/2024 Multiple falls 01/14/2024 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) ([facility]) 01/14/2024 OM (onychomycosis) On home oxygen therapy 01/14/2024 TANYA (obstructive sleep apnea) Osteoarthritis of back Other chronic pain 01/14/2024 Peripheral edema 01/14/2024 Pruritic erythematous rash 01/14/2024 Rhabdomyolysis 01/14/2024 Stage 3 chronic kidney disease (HCC) ([facility]) 01/14/2024 Symptomatic varicose veins of both lower extremities 01/14/2024 Thyroid disease ([facility]) 01/14/2024 Type 2 diabetes mellitus without complications ([facility]) 01/14/2024 Ulcer of left lower leg ([facility]) 01/14/2024 UTI (urinary tract infection) 01/14/2024 Venous reflux 01/14/2024 Venous stasis ulcer limited to breakdown of skin without varicose veins ([facility]) 01/14/2024 Vitamin D deficiency, unspecified Past Surgical History: Procedure Laterality Date CHOLECYSTECTOMY CT GUIDED IMAGING FOR NEEDLE PLACEMENT 02/24/2023 CT GUIDED IMAGING FOR NEEDLE PLACEMENT HYSTERECTOMY complete - no cancer REVIEW OF SYMPTOMS: 14 POINT OF SYSTEM REVIEWED AND NEGATIVE OBJECTIVE: Constitutional: Afebrile @ home; no weakness or night sweats SKIN: No change in skin color; no itching, rash or lesions; no hair loss; HEENT: No HAs or injury; no dizziness; No difficulty with vision; no eye pain, discharge or lesions; no hearing loss or difficulty; no nasal discharge, NECK: No pain, limitation of motion, lumps or swollen glands RESP: No cough, wheezing or difficulty breathing. No CP with breathing; CARDIO: No CP , SOB or fatigue, No edema, palpitations or dyspnea with exertion GI: No N/V/D or abd. pain; good appetite with no recent change. No heart burn, liver or gallbladderdisease; no rectal bleeding or pain : No urinary pain , frequency or odor. MUSCULOSKELETAL: No muscle pain or cramps; no extremity weakness.No joint pain, stiffness, swellingor limitation of movement NEUROLOGY: No H/O seizures, stroke or fainting. No weakness, tremors. Hematology: No bleeding problems or excessive bruising ENDOCRINE: No increase in hunger, thirst or urination; admits compliance to medical management plan Feet: numbness tingling yes , ulcers or skin break no Lab Results Component Value Date HGBA1C 13.4 05/25/2024 HGBA1C 9.1 01/20/2024 Lab Results Component Value Date GLU 166 05/25/2024 GLU 264 (H) 02/24/2024 GLU 126 01/20/2024 10/21/2023 3:27 PM 11/24/2023 8:31 AM 01/14/2024 1:41 PM 01/20/2024 10:51 AM 02/02/2024 8:17 AM 04/15/2024 8:28 AM 05/25/2024 10:41 AM Vitals BMI 48.24 kg/m2 43.43 kg/m2 41.54 kg/m2 48.63 kg/m2 48.63 kg/m2 48.63 kg/m2 44.33 kg/m2 BSA (m2) 2.18 m2 2.28 m2 2.23 m2 2.19 m2 2.19 m2 2.19 m2 2.09 m2 Systolic 122 128 135 120 125 120 Diastolic 74 83 75 78 80 86 Heart Rate 86 74 97 81 81 97 SpO2 97 % 98 % 94 % Resp 18 18 18 18 18 Height (in) 5' 5' 4 5' 4 5' 5' 5' 5' Weight (lb) 247 253 242 249 249 249 227 Visit Report Report Report Report Report Report Report ASSESSMENT AND PLAN: Assessment/Plan Diagnoses and all orders for this visit: Type 2 diabetes mellitus with hyperglycemia, with long-term current use of insulin ([facility]) - POCT glucose manually resulted - POCT glycosylated hemoglobin (Hb A1C) docked device - insulin lispro-aabc (Lyumjev KwikPen) 100 UNIT/ML pen; Inject 40 Units under the skin in the morning and 40 Units at noon and 40 Units in the evening. Inject with meals. - insulin glargine (Lantus SoloStar) 100 UNIT/ML pen; Inject 50 Units under the skin in the morning. We will continue with Farxiga 10 mg, Lantus 50 at bedtime, short-acting lyumjev 40 units every meal, sent all Vitamin D deficiency Primary hypertension (CMS/HCC) Hyperlipemia, mixed (CMS/HCC) Insulin long-term use ([facility]) Encounter for dietary consultation Diet and exercise reviewed with the patient Stage 3b chronic kidney disease (HCC) ([facility]) Class 3 severe obesity due to excess calories with serious comorbidity and body mass index (BMI) of45.0 to 49.9 in adult ([facility]) Type 2 diabetes mellitus with hyperglycemia ([facility]) - dapagliflozin (Farxiga) 10 MG; Take 1 tablet (10 mg) by mouth Daily Follow up in about 3 months (around 08/22/2024). documented in this encounterUniversity of [facility] Health [id number] History of Present illness Narrative* Mack Tsai DPM - 04/15/2024 8:30 AM EST Patient: Kelsea Turcios : 1960 PCP: Giovanni [...] care and treatment. Patient is DM2 Pt also presents today with secondary complaints of dry scaly skin to feet. Pt states that they have not been using OTC creams and lotions with minimal relief. Allergies: Allergies Allergen Reactions Honey Anaphylaxis and Hives Codeine Itching and Rash Morphine Rash Other Reaction(s): Gastrointestinal Upset Tramadol Hallucinations Past Medical History: Past Medical History: Diagnosis Date Acute hyperkalemia 01/14/2024 Acute metabolic encephalopathy 01/14/2024 PETER (acute kidney injury) ([facility]) 01/14/2024 Anemia Anxiety Arthritis Bipolar 1 disorder ([facility]) 01/14/2024 Bipolar disorder with depression ([facility]) 01/14/2024 Breast cancer screening by mammogram 01/14/2024 Chronic depression ([facility]) 01/14/2024 Chronic fatigue 01/14/2024 Chronic hypercapnic respiratory failure ([facility]) 01/14/2024 Chronic kidney disease, stage 3 unspecified ([facility]) ([facility]) COPD (chronic obstructive pulmonary disease) ([facility]) Debility 01/14/2024 Degenerative joint disease of cervical and lumbar spine 01/14/2024 Dehydration 01/14/2024 Diabetes ([facility]) 01/14/2024 Diabetic neuropathy ([facility]) 07/15/2023 Diarrhea 01/14/2024 Difficulty walking Disorder of sacroiliac joint 01/14/2024 DM type 2 (diabetes mellitus, type 2) ([facility]) Elevated troponin 01/14/2024 Epigastric pain 01/14/2024 Gait instability 01/14/2024 GERD (gastroesophageal reflux disease) Hallucinations, visual 01/14/2024 Hemosiderin pigmentation of skin 01/14/2024 Hypertension ([facility]) Hypomagnesemia 01/14/2024 Hypothyroidism ([facility]) 01/14/2024 Iron deficiency anemia 01/14/2024 Irritable bowel disease 01/14/2024 Kidney disease 01/14/2024 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 ([facility]) 01/14/2024 Lumbar degenerative disc disease 01/14/2024 Lumbar spondylolysis Lumbosacral spondylosis without myelopathy 01/14/2024 Major depressive disorder with psychotic features ([facility]) 01/14/2024 Mixed hyperlipidemia ([facility]) Monoclonal gammopathy 01/14/2024 Morbid obesity with BMI of 40.0-44.9, adult ([facility]) Morbid obesity with BMI of 45.0-49.9, adult ([facility]) 01/14/2024 Multiple falls 01/14/2024 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) ([facility]) 01/14/2024 OM (onychomycosis) On home oxygen therapy 01/14/2024 TANYA (obstructive sleep apnea) Osteoarthritis of back Other chronic pain 01/14/2024 Peripheral edema 01/14/2024 Pruritic erythematous rash 01/14/2024 Rhabdomyolysis 01/14/2024 Stage 3 chronic kidney disease (HCC) ([facility]) 01/14/2024 Symptomatic varicose veins of both lower extremities 01/14/2024 Thyroid disease ([facility]) 01/14/2024 Type 2 diabetes mellitus without complications ([facility]) 01/14/2024 Ulcer of left lower leg ([facility]) 01/14/2024 UTI (urinary tract infection) 01/14/2024 Venous reflux 01/14/2024 Venous stasis ulcer limited to breakdown of skin without varicose veins ([facility]) 01/14/2024 Vitamin D deficiency, unspecified Medications: Current Outpatient Medications: Farxiga 10 MG, TAKE 1 TABLET BY MOUTH EVERY DAY, Disp: 90 tablet, Rfl: 1 albuterol HFA 90 mcg/act inhaler, Inhale 2 puffs in the morning and 2 puffs in the evening and 2 puffs before bedtime., Disp: 18 g, Rfl: 5 amLODIPine (Norvasc) 10 MG tablet, Take 10 mg by mouth in the morning., Disp: , Rfl: aspirin 81 MG EC tablet, Daily, Disp: , Rfl: BD Pen Needle Micro U/F 32G X 6 MM misc, USE DIRECTED 4 TIMES A DAY, Disp: , Rfl: benzonatate (Tessalon) 100 MG capsule, TAKE 1 CAPSULE BY MOUTH THREE TIMES A DAY NEEDED FOR 5 DAYS, Disp: , Rfl: budesonide-formoterol (Symbicort) 160-4.5 MCG/ACT inhaler, Inhale 2 puffs in the morning and 2 puffs before bedtime. Rinse mouth with water after use to reduce aftertaste and incidence of candidiasis. Do not swallow.., Disp: 1 each, Rfl: 5 Cholecalciferol (Vitamin D) 50 MCG (2000 UT) capsule, Take 1 capsule by mouth 1 (one) time each dayat the same time., Disp: , Rfl: clobetasol (Temovate) 0.05 % cream, PLEASE SEE ATTACHED FOR DETAILED DIRECTIONS, Disp: , Rfl: cloNIDine (Catapres) 0.1 MG tablet, Twice daily, Disp: , Rfl: colestipol (Colestid) 1 g tablet, Take 2 g by mouth 1 (one) time each day at the same time., Disp: , Rfl: Continuous Blood Gluc Sensor (FreeStyle Alfredo 2 Sensor) [facility], USE DIRECTED EVERY 14 DAYS, Disp: , Rfl: Coreg 25 MG tablet, Take 25 mg by mouth every 12 (twelve) hours., Disp: , Rfl: diclofenac sodium 1 % gel, APPLY 4 GRAMS TO AFFECTED AREA 4 TIMES DAILY, Disp: 100 g, Rfl: 3 dicyclomine (Bentyl) 20 MG tablet, Take 20 mg by mouth 3 (three) times a day as needed., Disp: , Rfl: DULoxetine (Cymbalta) [address] capsule, Take 60 mg by mouth in the morning., Disp: , Rfl: Fetzima 120 MG extended release capsule, , Disp: , Rfl: fluticasone (Flonase) 50 MCG/ACT nasal spray, USE 1 SPRAY INTO EACH NOSTRIL EVERY DAY FOR 30 DAYS, Disp: 16 mL, Rfl: 0 furosemide (Lasix) 40 MG tablet, TAKE 1.5 TABLETS BY MOUTH ONCE DAILY, Disp: , Rfl: gabapentin (Neurontin) 600 MG tablet, TAKE 1.5 TABS IN AM, 1 TAB AT NOON, AND 1.5 TABS AT BEDTIME, Disp: , Rfl: guaiFENesin (Mucinex) 600 MG 12 hr tablet, Take 1 tablet (600 mg) by mouth in the morning and 1 tablet (600 mg) before bedtime. Do not crush, chew, or split.., Disp: 60 tablet, Rfl: 11 HYDROcodone-acetaminophen ([place]) 5-325 MG tablet, TAKE 1 TABLET BY MOUTH THREE TIMES A DAY NEEDED FOR PAIN, Disp: , Rfl: hydrOXYzine HCl (Atarax) 10 MG tablet, TAKE 1 TO 2 TABLETS THREE TIMES A DAY NEEDED, Disp: , Rfl: ipratropium-albuterol (Duo-Neb) 0.5-2.5 mg/3 mL nebulizer solution, Take 3 mL by nebulization 4 (four) times a day as needed for wheezing or shortness of breath, Disp: 360 mL, Rfl: 11 Lantus SoloStar 100 UNIT/ML pen, INJECT 25 UNITS SUBCUTANEOUSLY DAILY, Disp: , Rfl: levothyroxine (Synthroid, Levoxyl) 75 MCG tablet, TAKE 1 TABLET BY MOUTH EVERY DAY IN THE MORNING ON EMPTY STOMACH, Disp: , Rfl: loperamide (Imodium A-D) 2 MG tablet, 1 tablet, Disp: , Rfl: Lyumjev KwikPen 100 UNIT/ML pen, PLEASE SEE ATTACHED FOR DETAILED DIRECTIONS, Disp: , Rfl: mirtazapine (Remeron) 45 MG tablet, , Disp: , Rfl: montelukast (Singulair) 10 MG tablet, Take 1 tablet (10 mg) by mouth 1 (one) time each day at the same time, Disp: 30 tablet, Rfl: 5 NovoLOG FLEXPEN 100 UNIT/ML pen, PLEASE SEE ATTACHED FOR DETAILED DIRECTIONS, Disp: , Rfl: olopatadine (Patanol) 0.1 % ophthalmic solution, INSTILL 1 DROP INTO AFFECTED EYE TWICE A DAY, Disp: , Rfl: omeprazole (PriLOSEC) [address] capsule, 1 (one) time each day at the same time., Disp: , Rfl: oxybutynin XL (Ditropan XL) 10 MG 24 hr tablet, 1 (one) time each day at the same time., Disp: , Rfl: pioglitazone-metFORMIN (ACTOPlus Met) 15-850 MG tablet, 1 tablet, Disp: , Rfl: prednisoLONE acetate (Pred-Forte) 1 % ophthalmic suspension, PLEASE SEE ATTACHED FOR DETAILED DIRECTIONS, Disp: , Rfl: Refresh Tears 0.5 % ophthalmic solution, INSTILL 1 DROP INTO EACH EYE 3 TIMES A DAY NEEDED 30 DAYS, Disp: , Rfl: Rexulti 4 MG tablet, Take 1 tablet by mouth in the morning., Disp: , Rfl: sucralfate (Carafate) 1 g tablet, every 12 (twelve) hours., Disp: , Rfl: theophylline ER (Thad-24) 200 MG 24 hr capsule, Take 1 capsule (200 mg) by mouth 1 (one) time each day at the same time, Disp: 30 capsule, Rfl: 5 tiZANidine (Zanaflex) 4 MG tablet, Take 4 mg by mouth in the evening., Disp: , Rfl: triamcinolone (Kenalog) 0.1 % ointment, APPLY TWICE DAILY FOR 2 WEEKS APPLY TO LOWER LEGS DISCUSSED, Disp: , Rfl: zonisamide (Zonegran) 25 MG capsule, Twice daily, Disp: , Rfl: Social History: Social History [...] to the right 2nd digit PIPJ region. Dry and scaly skin noted to bilateral feet VASC: Negative DP and negative PT pedal pulses NEURO: 5.07 Laurel Rosi monofilament test diminished to digits and forefoot bilaterally 125Hz tuning fork diminished to 1st MPJ bilaterally ORTHO: Positive pain on palpation to nails 1 through 10 Flexion deformity 2 through 5 digits right foot ASSESSMENT 1. Diabetes mellitus due to underlying condition with diabetic polyneuropathy, with long-term current use of insulin ([facility]) 2. Pain due to onychomycosis of toenails [...] education on condition and treatment of condition. Discussed application of hydrating cream to feet twice daily and to not place between toes and to apply prior to bed in evenings and to observe for any redness to feet or red streaks or drainage to feet. Patient to consider [id number] treatments for medication or use of urea cream and prescription today was offered for Lac-Hydrin cream. Mack Tsai DPM documented in this [facility]10-29-2024 Evaluation note* Diagnosis Onset Date Resolution Status Admit Date Hypothyroidism acuteOctober 2023 8:19amTinea corporisacuteOctober 2023 8:19amType 2 diabetes mellitus without complicationsacuteOctober 2023 8:19amEncounter for initial annual wellness visit in Medicare patientnoneactiveOctober 2023 8:19amCKD (chronic kidney disease) stage 3, GFR 30-59 ml/minchronicNovember 2023 9:57amCOPD (chronic obstructive pulmonary disease)chronicNovember 2023 9:57amDegenerative joint disease of cervical and lumbar spinechronic February 24, 2024 9:57am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)chronicNov2023 9:57amIron deficiency anemiaresolvedNovember 2023 9:57amBipolar disorder with depressioninactive February 24, 2024 9:57amDiabetesinactiveNovember 2023 9:57amMorbid obesityinactiveNov2023 9:57am [facility] Work Phone: 1(708) 216-387610-29-2024 Evaluation note* Diagnosis Onset Date Resolution Status Admit Date Hypothyroidism acuteOctober 2023 8:19amTinea corporisacuteOctober 2023 8:19amType 2 diabetes mellitus without complicationsacuteOctober 2023 8:19amEncounter for initial annual wellness visit in Medicare patientnoneactiveOctober 2023 8:19amCKD (chronic kidney disease) stage 3, GFR 30-59 ml/minchronicNov2023 1:04pmCOPD (chronic obstructive pulmonary disease)chronicNov2023 1:04pmDegenerative joint disease of cervical and lumbar spinechronic March 02, 2024 1: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)chronicNov2023 1:04pmIron deficiency anemiaresKindred Healthcare 2023 1:04pmBipolar disorder with depressioninactive March 02, 2024 1:04pmDiabetesinactiveAtrium Health Union [place] 1:04pmMorbid obesityinaAvita Health System [facility] 1:04pm [facility] Work Phone: [phone]) 718-439610-29-2024 Evaluation note* Diagnosis Onset Date Resolution Status Admit Date Hypothyroidism acuteOctober 2023 8:19amTinea corporisacuteOctober 2023 8:19amType 2 diabetes mellitus without complicationsacuteOctober 2023 8:19amEncounter for initial annual wellness visit in Medicare patientnoneactiveOctthree [facility] 2023 8:19amHistory of iron deficiency anemiaacuteAt[facility]20[facility] 1:03pm Morbid obesity with BMI of 45.0-49.9, [facility] 20[facility] 1:03pm Pruritic erythematous rashacuteNorton Hospital 2023 1:03pmBipolar 1 disorder [facility] 2023 1:03pmCKD (chronic kidney disease) stage 3, GFR 30-59 ml/minchronPikeville [facility] Center 2023 1:03pmCOPD (chronic obstructive pulmonary disease)[facility]2023 1:03pmDegenerative joint disease of cervical and lumbar spinechronBarn[facility]2023 1:03pmDiabetic neuropathy associated with diabetes mellitus due to underlyingchronPikeville Medical Center 2023 1:03pm HypertensionchronPikeville Medical Center 2023 1:03pm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)[facility] 2023 1:03pmVenous stasis dermatitis of both lower extremitiesresKindred Healthcare 2023 1:03pmCKD (chronic kidney disease) stage 3, GFR 30-59 ml/minchronPikeville [facility] Center 2023 1:04pmCOPD (chronic obstructive pulmonary disease)[facility] 2023 1:04pmDegenerative joint disease of cervical and lumbar spinechronic March 02, 2024 1: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)[facility] 2023 1:04pmIron deficiency anemiaresolvedMarch 02, 2024 1:04pmBipolar disorder with depressioninactive March 02, 2024 1:04pmDiabetesinactiveMarch 02, 2024 1:04pmMorbid obesityinactiveMarch 02, 2024 1:04pmTrochanteric bursitis of left hipacute March 07, 2024 11:07amVenous stasis dermatitis of both lower extremities resolvedMarch 07, 2024 11:07am [facility] Work Phone: [phone]) 602-330610-22-2024 History of Present illness Narrative* Mack Tsai, FRANDY - 02/02/2024 8:30 AM EDT Patient: Kelsea Turcios : 1960 [...] nail care and treatment. Patient is DM2 Allergies: Allergies Allergen Reactions Honey Anaphylaxis and Hives Codeine Itching and Rash Morphine Rash Other Reaction(s): Gastrointestinal Upset Tramadol Hallucinations Past Medical History: Past Medical History: Diagnosis Date Acute hyperkalemia 01/14/2024 Acute metabolic encephalopathy 01/14/2024 PETER (acute kidney injury) ([facility]) 01/14/2024 Anemia Anxiety Arthritis Bipolar 1 disorder ([facility]) 01/14/2024 Bipolar disorder with depression ([facility]) 01/14/2024 Breast cancer screening by mammogram 01/14/2024 Chronic depression ([facility]) 01/14/2024 Chronic fatigue 01/14/2024 Chronic hypercapnic respiratory failure ([facility]) 01/14/2024 Chronic kidney disease, stage 3 unspecified (HCC) ([facility]) COPD (chronic obstructive pulmonary disease) ([facility]) Debility 01/14/2024 Degenerative joint disease of cervical and lumbar spine 01/14/2024 Dehydration 01/14/2024 Diabetes ([facility]) 01/14/2024 Diabetic neuropathy ([facility]) 07/15/2023 Diarrhea 01/14/2024 Difficulty walking Disorder of sacroiliac joint 01/14/2024 DM type 2 (diabetes mellitus, type 2) ([facility]) Elevated troponin 01/14/2024 Epigastric pain 01/14/2024 Gait instability 01/14/2024 GERD (gastroesophageal reflux disease) Hallucinations, visual 01/14/2024 Hemosiderin pigmentation of skin 01/14/2024 Hypertension ([facility]) Hypomagnesemia 01/14/2024 Hypothyroidism ([facility]) 01/14/2024 Iron deficiency anemia 01/14/2024 Irritable bowel disease 01/14/2024 Kidney disease 01/14/2024 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 ([facility]) 01/14/2024 Lumbar degenerative disc disease 01/14/2024 Lumbar spondylolysis Lumbosacral spondylosis without myelopathy 01/14/2024 Major depressive disorder with psychotic features ([facility]) 01/14/2024 Mixed hyperlipidemia ([facility]) Monoclonal gammopathy 01/14/2024 Morbid obesity with BMI of 40.0-44.9, adult ([facility]) Morbid obesity with BMI of 45.0-49.9, adult ([facility]) 01/14/2024 Multiple falls 01/14/2024 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) ([facility]) 01/14/2024 OM (onychomycosis) On home oxygen therapy 01/14/2024 TANYA (obstructive sleep apnea) Osteoarthritis of back Other chronic pain 01/14/2024 Peripheral edema 01/14/2024 Pruritic erythematous rash 01/14/2024 Rhabdomyolysis 01/14/2024 Stage 3 chronic kidney disease (HCC) ([facility]) 01/14/2024 Symptomatic varicose veins of both lower extremities 01/14/2024 Thyroid disease ([facility]) 01/14/2024 Type 2 diabetes mellitus without complications ([facility]) 01/14/2024 Ulcer of left lower leg ([facility]) 01/14/2024 UTI (urinary tract infection) 01/14/2024 Venous reflux 01/14/2024 Venous stasis ulcer limited to breakdown of skin without varicose veins ([facility]) 01/14/2024 Vitamin D deficiency, unspecified Medications: Current Outpatient Medications: albuterol HFA 90 mcg/act inhaler, Inhale 2 puffs in the morning and 2 puffs in the evening and 2 puffs before bedtime., Disp: 18 g, Rfl: 5 amLODIPine (Norvasc) 10 MG tablet, Take 10 mg by mouth in the morning., Disp: , Rfl: aspirin 81 MG EC tablet, Daily, Disp: , Rfl: BD Pen Needle Micro U/F 32G X 6 MM [facility], USE DIRECTED 4 TIMES A DAY, Disp: , Rfl: benzonatate (Tessalon) 100 MG capsule, TAKE 1 CAPSULE BY MOUTH THREE TIMES A DAY NEEDED FOR 5 DAYS, Disp: , Rfl: budesonide-formoterol (Symbicort) 160-4.5 MCG/ACT inhaler, Inhale 2 puffs in the morning and 2 puffs before bedtime. Rinse mouth with water after use to reduce aftertaste and incidence of candidiasis. Do not swallow.., Disp: 1 each, Rfl: 5 Cholecalciferol (Vitamin D) 50 MCG (2000 UT) capsule, Take 1 capsule by mouth 1 (one) time each dayat the same time., Disp: , Rfl: clobetasol (Temovate) 0.05 % cream, PLEASE SEE ATTACHED FOR DETAILED DIRECTIONS, Disp: , Rfl: cloNIDine (Catapres) 0.1 MG tablet, Twice daily, Disp: , Rfl: colestipol (Colestid) 1 g tablet, Take 2 g by mouth 1 (one) time each day at the same time., Disp: , Rfl: Continuous Blood Gluc Sensor (FreeStyle Alfredo 2 Sensor) [facility], USE DIRECTED EVERY 14 DAYS, Disp: , Rfl: Coreg 25 MG tablet, Take 25 mg by mouth every 12 (twelve) hours., Disp: , Rfl: diclofenac sodium 1 % gel, APPLY 4 GRAMS TO AFFECTED AREA 4 TIMES DAILY, Disp: 100 g, Rfl: 3 dicyclomine (Bentyl) 20 MG tablet, Take 20 mg by mouth 3 (three) times a day as needed., Disp: , Rfl: DULoxetine (Cymbalta) [address] capsule, Take 60 mg by mouth in the morning., Disp: , Rfl: Farxiga 10 MG, Take 10 mg by mouth Daily, Disp: , Rfl: Fetzima 120 MG extended release capsule, , Disp: , Rfl: fluticasone (Flonase) 50 MCG/ACT nasal spray, USE 1 SPRAY INTO EACH NOSTRIL EVERY DAY FOR 30 DAYS, Disp: 16 mL, Rfl: 0 furosemide (Lasix) 40 MG tablet, TAKE 1.5 TABLETS BY MOUTH ONCE DAILY, Disp: , Rfl: gabapentin (Neurontin) 600 MG tablet, TAKE 1.5 TABS IN AM, 1 TAB AT NOON, AND 1.5 TABS AT BEDTIME, Disp: , Rfl: guaiFENesin (Mucinex) 600 MG 12 hr tablet, Take 1 tablet (600 mg) by mouth in the morning and 1 tablet (600 mg) before bedtime. Do not crush, chew, or split.., Disp: 60 tablet, Rfl: 11 HYDROcodone-acetaminophen ([place]) 5-325 MG tablet, TAKE 1 TABLET BY MOUTH THREE TIMES A DAY NEEDED FOR PAIN, Disp: , Rfl: hydrOXYzine HCl (Atarax) 10 MG tablet, TAKE 1 TO 2 TABLETS THREE TIMES A DAY NEEDED, Disp: , Rfl: ipratropium-albuterol (Duo-Neb) 0.5-2.5 mg/3 mL nebulizer solution, Take 3 mL by nebulization 4 (four) times a day as needed for wheezing or shortness of breath, Disp: 360 mL, Rfl: 11 Lantus SoloStar 100 UNIT/ML pen, INJECT 25 UNITS SUBCUTANEOUSLY DAILY, Disp: , Rfl: levothyroxine (Synthroid, Levoxyl) 75 MCG tablet, TAKE 1 TABLET BY MOUTH EVERY DAY IN THE MORNING ON EMPTY STOMACH, Disp: , Rfl: loperamide (Imodium A-D) 2 MG tablet, 1 tablet, Disp: , Rfl: Lyumjev KwikPen 100 UNIT/ML pen, PLEASE SEE ATTACHED FOR DETAILED DIRECTIONS, Disp: , Rfl: mirtazapine (Remeron) 45 MG tablet, , Disp: , Rfl: montelukast (Singulair) 10 MG tablet, Take 1 tablet (10 mg) by mouth 1 (one) time each day at the same time, Disp: 30 tablet, Rfl: 5 NovoLOG FLEXPEN 100 UNIT/ML pen, PLEASE SEE ATTACHED FOR DETAILED DIRECTIONS, Disp: , Rfl: olopatadine (Patanol) 0.1 % ophthalmic solution, INSTILL 1 DROP INTO AFFECTED EYE TWICE A DAY, Disp: , Rfl: omeprazole (PriLOSEC) [address] capsule, 1 (one) time each day at the same time., Disp: , Rfl: oxybutynin XL (Ditropan XL) 10 MG 24 hr tablet, 1 (one) time each day at the same time., Disp: , Rfl: pioglitazone-metFORMIN (ACTOPlus Met) 15-850 MG tablet, 1 tablet, Disp: , Rfl: prednisoLONE acetate (Pred-Forte) 1 % ophthalmic suspension, PLEASE SEE ATTACHED FOR DETAILED DIRECTIONS, Disp: , Rfl: Refresh Tears 0.5 % ophthalmic solution, INSTILL 1 DROP INTO EACH EYE 3 TIMES A DAY NEEDED 30 DAYS, Disp: , Rfl: Rexulti 4 MG tablet, Take 1 tablet by mouth in the morning., Disp: , Rfl: sucralfate (Carafate) 1 g tablet, every 12 (twelve) hours., Disp: , Rfl: theophylline ER (Thad-24) 200 MG 24 hr capsule, Take 1 capsule (200 mg) by mouth 1 (one) time each day at the same time, Disp: 30 capsule, Rfl: 5 tiZANidine (Zanaflex) 4 MG tablet, Take 4 mg by mouth in the evening., Disp: , Rfl: triamcinolone (Kenalog) 0.1 % ointment, APPLY TWICE DAILY FOR 2 WEEKS APPLY TO LOWER LEGS DISCUSSED, Disp: , Rfl: zonisamide (Zonegran) 25 MG capsule, Twice daily, Disp: , Rfl: Social History: Social History [...] noted to the right 2nd digit PIPJ region VASC: Negative DP and negative PT pedal pulses NEURO: 5.07 Laurel Rosi monofilament test diminished to digits and forefoot bilaterally 125Hz tuning fork diminished to 1st MPJ bilaterally ORTHO: Positive pain on palpation to nails 1 through 10 Flexion deformity 2 through 5 digits right foot ASSESSMENT 1. Diabetes mellitus due to underlying condition with diabetic polyneuropathy, with long-term current use of insulin ([facility]) 2. Pain due to onychomycosis of toenails of both feet PLAN Discussed proper foot care with patient today. Debride nails in length and thickness digits 1 through 10 Patient educated today on proper diabetic foot care including monitoring feet daily for any signs of infection openings in the skin or irregularities to both feet. Patient had a diabetic neurologicalexam today to both their feet and discussed proper shoe gear. Mack Tsai DPM documented in this encounterUniversity of Missouri Health [id number] History of Present illness Narrative* Jeannie Aguilar MD - 01/20/2024 10:30 AM EDT Kelsea Turcios is a 63 y.o. female Jeannie Aguilar MD presents with chief complaint of Diabetes and Follow-up HPI: IM : 01/2024 follow up visit on 01/20/2024, a1C 9.1, BG 126 , CGM 3-51-45 % AVG 171. on Farxiga 5, lantus 50 units, Lyumjev 40 units bid plus sliding scale #2. IM : 10/2023 follow up visit on 10/21/2023, a1C 9.1, BG 116 , CGM 6-34-60 % AVG 193. on Farxiga 5, lantus 40 units, Lyumjev 40 units bid plus sliding scale #2. IM : 07/2023 follow up visit on 08/05/2023, a1C 9.2, BG 63, CGM 4-30-66 % AVG 201. on Farxiga 5, Basaglar 40 units, Lyumjev 30-35 units bid plus sliding scale #2. lab on 07/2023 GFR 38, TC 134M HDL 45, LDL 71. IM : 04/2023 follow up visit on 05/06/2023, a1C 11.3, BG 331 CGM 0-14-86 % AVG 272. on Farxiga 5, Basaglar 30 units, Lyumjev 17-20 units bid plus sliding scale #2. IM : 01/2023 follow up visit on 02/04/2023, urgent visit for high bg, 174 in the offcie, CGM 0-16-83% AVG 252. on Farxiga 5, Basaglar 36 units, Lyumjev 20-30 units bid plus sliding scale #2. had burning during injection site IM : 11/2022 follow up visit on 11/19/2022, A1c 8.6, bg 82, CGM 0-51-49 % AVG 182. off metformin, on Farxiga 5, Basaglar 30 units, Lyumjev 20 mL units bid plus sliding scale #2. IM 08/2022 follow up visit on 08/13/2022, A1c 7.5, bg 72, cgm 3-67-30 % AVG 156. on metformin 850 once and Farxiga 5, Basaglar 25 units, Lyumjev 10 mL units bid plus sliding scale #2. lab CR 1..65, GFR 34, TC 146, HDL 51, LDL 82, VIT D 47, AL/CR 51. HPI: 04/2022 New patient sent from Pain Management in [place], Dr. Brenden Groves, for uncontrolled diabetes. A1c in the office 7.9 , blood sugar 153. She has diabetes since long time. She has COPD, using home oxygen. She has kidney problem. I do not know what is her GFR. Gabapentin dropped from 900 t.i.d. to 300 t.i.d. and started Tramadol. For diabetes, she is using Basaglar 23 around noontime and metformin 850 once a day and Farxiga 5 mg. Her CGM shows 0% in low range, 32 in good range, 68 in high range, average 211. SUBJECTIVE: MEDICATIONS: Current Outpatient Medications Medication Instructions albuterol HFA 90 mcg/act inhaler 2 puffs, Inhalation, 3 times daily amLODIPine (NORVASC) 10 mg, Oral, Daily aspirin 81 MG EC tablet Daily BD Pen Needle Micro U/F 32G X 6 MM misc USE DIRECTED 4 TIMES A DAY benzonatate (Tessalon) 100 MG capsule TAKE 1 CAPSULE BY MOUTH THREE TIMES A DAY NEEDED FOR 5 DAYS budesonide-formoterol (Symbicort) 160-4.5 MCG/ACT inhaler 2 puffs, Inhalation, 2 times daily RT, Rinse mouth with water after use to reduce aftertaste and incidence of candidiasis. Do not swallow. Cholecalciferol (Vitamin D) 50 MCG (1999 UT) capsule 1 capsule, Oral, Every 24 hours clobetasol (Temovate) 0.05 % cream PLEASE SEE ATTACHED FOR DETAILED DIRECTIONS cloNIDine (Catapres) 0.1 MG tablet Twice daily colestipol (COLESTID) 2 g, Oral, Every 24 hours Continuous Blood Gluc Sensor (FreeStyle Alfredo 2 Sensor) misc USE DIRECTED EVERY 14 DAYS Coreg 25 mg, Oral, Every 12 hours diclofenac sodium 1 % gel APPLY 4 GRAMS TO AFFECTED AREA 4 TIMES DAILY dicyclomine (BENTYL) 20 mg, Oral, 3 times daily PRN DULoxetine (CYMBALTA) 60 mg, Oral, Daily Farxiga 10 mg, Oral, Daily Fetzima 120 MG extended release capsule fluticasone (Flonase) 50 MCG/ACT nasal spray USE 1 SPRAY INTO EACH NOSTRIL EVERY DAY FOR 30 DAYS furosemide (Lasix) 40 MG tablet TAKE 1.5 TABLETS BY MOUTH ONCE DAILY gabapentin (Neurontin) 600 MG tablet TAKE 1.5 TABS IN AM, 1 TAB AT NOON, AND 1.5 TABS AT BEDTIME guaiFENesin (MUCINEX) 600 mg, Oral, 2 times daily, Do not crush, chew, or split. HYDROcodone-acetaminophen ([place]) 5-325 MG tablet TAKE 1 TABLET BY MOUTH THREE TIMES A DAY NEEDED FOR PAIN hydrOXYzine HCl (Atarax) 10 MG tablet TAKE 1 TO 2 TABLETS THREE TIMES A DAY NEEDED ipratropium-albuterol (Duo-Neb) 0.5-2.5 mg/3 mL nebulizer solution 3 mL, Nebulization, 4 times daily PRN Lantus SoloStar 100 UNIT/ML pen INJECT 25 UNITS SUBCUTANEOUSLY DAILY levothyroxine (Synthroid, Levoxyl) 75 MCG tablet TAKE 1 TABLET BY MOUTH EVERY DAY IN THE MORNING ONEMPTY STOMACH loperamide (Imodium A-D) 2 MG tablet 1 tablet Lyumjev KwikPen 100 UNIT/ML pen PLEASE SEE ATTACHED FOR DETAILED DIRECTIONS mirtazapine (Remeron) 45 MG tablet montelukast (SINGULAIR) 10 mg, Oral, Every 24 hours NovoLOG FLEXPEN 100 UNIT/ML pen PLEASE SEE ATTACHED FOR DETAILED DIRECTIONS olopatadine (Patanol) 0.1 % ophthalmic solution INSTILL 1 DROP INTO AFFECTED EYE TWICE A DAY omeprazole (PriLOSEC) [address] capsule Every 24 hours oxybutynin XL (Ditropan XL) 10 MG 24 hr tablet Every 24 hours pioglitazone-metFORMIN (ACTOPlus Met) 15-850 MG tablet 1 tablet prednisoLONE acetate (Pred-Forte) 1 % ophthalmic suspension PLEASE SEE ATTACHED FOR DETAILED DIRECTIONS Refresh Tears 0.5 % ophthalmic solution INSTILL 1 DROP INTO EACH EYE 3 TIMES A DAY NEEDED 30 DAYS Rexulti 4 MG tablet 1 tablet, Oral, Daily sucralfate (Carafate) 1 g tablet Every 12 hours theophylline ER (THAD-24) 200 mg, Oral, Every 24 hours tiZANidine (ZANAFLEX) 4 mg, Oral, Every evening triamcinolone (Kenalog) 0.1 % ointment APPLY TWICE DAILY FOR 2 WEEKS APPLY TO LOWER LEGS DISCUSSED zonisamide (Zonegran) 25 MG capsule Twice daily ALLERGIES: Allergies Allergen Reactions Honey Anaphylaxis and Hives Codeine Itching and Rash Morphine Rash Other Reaction(s): Gastrointestinal Upset Tramadol Hallucinations Past Medical History: Diagnosis Date Acute hyperkalemia 01/14/2024 Acute metabolic encephalopathy 01/14/2024 PETER (acute kidney injury) ([facility]) 01/14/2024 Anemia Anxiety Arthritis Bipolar 1 disorder ([facility]) 01/14/2024 Bipolar disorder with depression ([facility]) 01/14/2024 Breast cancer screening by mammogram 01/14/2024 Chronic depression ([facility]) 01/14/2024 Chronic fatigue 01/14/2024 Chronic hypercapnic respiratory failure ([facility]) 01/14/2024 Chronic kidney disease, stage 3 unspecified (HCC) ([facility]) COPD (chronic obstructive pulmonary disease) ([facility]) Debility 01/14/2024 Degenerative joint disease of cervical and lumbar spine 01/14/2024 Dehydration 01/14/2024 Diabetes ([facility]) 01/14/2024 Diabetic neuropathy ([facility]) 07/15/2023 Diarrhea 01/14/2024 Difficulty walking Disorder of sacroiliac joint 01/14/2024 DM type 2 (diabetes mellitus, type 2) ([facility]) Elevated troponin 01/14/2024 Epigastric pain 01/14/2024 Gait instability 01/14/2024 GERD (gastroesophageal reflux disease) Hallucinations, visual 01/14/2024 Hemosiderin pigmentation of skin 01/14/2024 Hypertension ([facility]) Hypomagnesemia 01/14/2024 Hypothyroidism ([facility]) 01/14/2024 Iron deficiency anemia 01/14/2024 Irritable bowel disease 01/14/2024 Kidney disease 01/14/2024 FPC (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 ([facility]) 01/14/2024 Lumbar degenerative disc disease 01/14/2024 Lumbar spondylolysis Lumbosacral spondylosis without myelopathy 01/14/2024 Major depressive disorder with psychotic features ([facility]) 01/14/2024 Mixed hyperlipidemia ([facility]) Monoclonal gammopathy 01/14/2024 Morbid obesity with BMI of 40.0-44.9, adult ([facility]) Morbid obesity with BMI of 45.0-49.9, adult ([facility]) 01/14/2024 Multiple falls 01/14/2024 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) ([facility]) 01/14/2024 OM (onychomycosis) On home oxygen therapy 01/14/2024 TANYA (obstructive sleep apnea) Osteoarthritis of back Other chronic pain 01/14/2024 Peripheral edema 01/14/2024 Pruritic erythematous rash 01/14/2024 Rhabdomyolysis 01/14/2024 Stage 3 chronic kidney disease (HCC) ([facility]) 01/14/2024 Symptomatic varicose veins of both lower extremities 01/14/2024 Thyroid disease ([facility]) 01/14/2024 Type 2 diabetes mellitus without complications ([facility]) 01/14/2024 Ulcer of left lower leg ([facility]) 01/14/2024 UTI (urinary tract infection) 01/14/2024 Venous reflux 01/14/2024 Venous stasis ulcer limited to breakdown of skin without varicose veins ([facility]) 01/14/2024 Vitamin D deficiency, unspecified Past Surgical History: Procedure Laterality Date CHOLECYSTECTOMY CT GUIDED IMAGING FOR NEEDLE PLACEMENT 02/24/2023 CT GUIDED IMAGING FOR NEEDLE PLACEMENT HYSTERECTOMY complete - no cancer REVIEW OF SYMPTOMS: 14 POINT OF SYSTEM REVIEWED AND NEGATIVE OBJECTIVE: Constitutional: Afebrile @ home; no weakness or night sweats SKIN: No change in skin color; no itching, rash or lesions; no hair loss; HEENT: No HAs or injury; no dizziness; No difficulty with vision; no eye pain, discharge or lesions; no hearing loss or difficulty; no nasal discharge, NECK: No pain, limitation of motion, lumps or swollen glands RESP: No cough, wheezing or difficulty breathing. No CP with breathing; CARDIO: No CP , SOB or fatigue, No edema, palpitations or dyspnea with exertion GI: No N/V/D or abd. pain; good appetite with no recent change. No heart burn, liver or gallbladderdisease; no rectal bleeding or pain : No urinary pain , frequency or odor. MUSCULOSKELETAL: No muscle pain or cramps; no extremity weakness.No joint pain, stiffness, swellingor limitation of movement NEUROLOGY: No H/O seizures, stroke or fainting. No weakness, tremors. Hematology: No bleeding problems or excessive bruising ENDOCRINE: No increase in hunger, thirst or urination; admits compliance to medical management plan Feet: numbness tingling , ulcers or skin break Lab Results Component Value Date HGBA1C 9.1 01/20/2024 Lab Results Component Value Date GLU 126 01/20/2024 GLU 86 08/24/2023 GLU 199 (H) 01/22/2023 Visit Vitals BP 120/78 Pulse 81 Resp 18 Ht 5' Wt 249 lb BMI 48.63 kg/m Smoking Status Never BSA 2.19 m ASSESSMENT AND PLAN: Assessment/Plan Diagnoses and all orders for this visit: Type 2 diabetes mellitus with hyperglycemia, with long-term current use of insulin ([facility]) - POCT glucose manually resulted - POCT glycosylated hemoglobin (Hb A1C) docked device We will continue with Farxiga 10 mg, Lantus 50 at bedtime, short-acting lipscomb lyumjev 40 units everymeal Vitamin D deficiency Primary hypertension ([facility]) Hyperlipemia, mixed ([facility]) Insulin long-term use ([facility]) Encounter for dietary consultation Diet and exercise reviewed with the patient Stage 3b chronic kidney disease (HCC) ([facility]) Class 3 severe obesity due to excess calories with serious comorbidity and body mass index (BMI) of45.0 to 49.9 in adult ([facility]) Follow up in about 4 months (around 05/22/2024). documented in this encounterUniversity of Missouri Health [id number] History of Present illness Narrative* Svetlana Garcia, DO - 01/14/2024 2:00 PM EDT Images from the original note were not included. Kelsea Turcios presents today for follow up on COPD and sleep apnea. She was last seen 6 months ago. She states her breathing has been stable since her last office visit. She did have 1 flare-up thatwas treated with antibiotics and prednisone. Otherwise she has been doing very well. She denies anycurrent complaints of increasing shortness of breath at rest with exertion. She denies any chest pain, palpitations, fevers, chills, sweats, or recent unintentional weight changes. She does remain compliant with use of her machine at night for treatment of her sleep apnea. She does average at least7 hours per night. She denies any apneas or snoring while using the machine. She denies any other co mplaints at this time. Allergies: Allergies Allergen Reactions Honey Anaphylaxis and Hives Codeine Itching and Rash Morphine Rash Other Reaction(s): Gastrointestinal Upset Tramadol Hallucinations Medications: Current Outpatient Medications: amLODIPine (Norvasc) 10 MG tablet, Take 10 mg by mouth in the morning., Disp: , Rfl: aspirin 81 MG EC tablet, Daily, Disp: , Rfl: BD Pen Needle Micro U/F 32G X 6 MM misc, USE DIRECTED 4 TIMES A DAY, Disp: , Rfl: benzonatate (Tessalon) 100 MG capsule, TAKE 1 CAPSULE BY MOUTH THREE TIMES A DAY NEEDED FOR 5 DAYS, Disp: , Rfl: Cholecalciferol (Vitamin D) 50 MCG (1999 UT) capsule, Take 1 capsule by mouth 1 (one) time each dayat the same time., Disp: , Rfl: clobetasol (Temovate) 0.05 % cream, PLEASE SEE ATTACHED FOR DETAILED DIRECTIONS, Disp: , Rfl: cloNIDine (Catapres) 0.1 MG tablet, Twice daily, Disp: , Rfl: colestipol (Colestid) 1 g tablet, Take 2 g by mouth 1 (one) time each day at the same time., Disp: , Rfl: Continuous Blood Gluc Sensor (FreeStyle Alfredo 2 Sensor) [facility], USE DIRECTED EVERY 14 DAYS, Disp: , Rfl: Coreg 25 MG tablet, Take 25 mg by mouth every 12 (twelve) hours., Disp: , Rfl: diclofenac sodium 1 % gel, APPLY 4 GRAMS TO AFFECTED AREA 4 TIMES DAILY, Disp: 100 g, Rfl: 3 dicyclomine (Bentyl) 20 MG tablet, Take 20 mg by mouth 3 (three) times a day as needed., Disp: , Rfl: DULoxetine (Cymbalta) [address] capsule, Take 60 mg by mouth in the morning., Disp: , Rfl: Farxiga 10 MG, Take 10 mg by mouth Daily, Disp: , Rfl: Fetzima 120 MG extended release capsule, , Disp: , Rfl: fluticasone (Flonase) 50 MCG/ACT nasal spray, USE 1 SPRAY INTO EACH NOSTRIL EVERY DAY FOR 30 DAYS, Disp: 16 mL, Rfl: 0 furosemide (Lasix) 40 MG tablet, TAKE 1.5 TABLETS BY MOUTH ONCE DAILY, Disp: , Rfl: gabapentin (Neurontin) 600 MG tablet, TAKE 1.5 TABS IN AM, 1 TAB AT NOON, AND 1.5 TABS AT BEDTIME, Disp: , Rfl: HYDROcodone-acetaminophen ([place]) 5-325 MG tablet, TAKE 1 TABLET BY MOUTH THREE TIMES A DAY NEEDED FOR PAIN, Disp: , Rfl: hydrOXYzine HCl (Atarax) 10 MG tablet, TAKE 1 TO 2 TABLETS THREE TIMES A DAY NEEDED, Disp: , Rfl: Lantus SoloStar 100 UNIT/ML pen, INJECT 25 UNITS SUBCUTANEOUSLY DAILY, Disp: , Rfl: levothyroxine (Synthroid, Levoxyl) 75 MCG tablet, TAKE 1 TABLET BY MOUTH EVERY DAY IN THE MORNING ON EMPTY STOMACH, Disp: , Rfl: loperamide (Imodium A-D) 2 MG tablet, 1 tablet, Disp: , Rfl: Lyumjev KwikPen 100 UNIT/ML pen, PLEASE SEE ATTACHED FOR DETAILED DIRECTIONS, Disp: , Rfl: mirtazapine (Remeron) 45 MG tablet, , Disp: , Rfl: NovoLOG FLEXPEN 100 UNIT/ML pen, PLEASE SEE ATTACHED FOR DETAILED DIRECTIONS, Disp: , Rfl: olopatadine (Patanol) 0.1 % ophthalmic solution, INSTILL 1 DROP INTO AFFECTED EYE TWICE A DAY, Disp: , Rfl: omeprazole (PriLOSEC) [address] capsule, 1 (one) time each day at the same time., Disp: , Rfl: oxybutynin XL (Ditropan XL) 10 MG 24 hr tablet, 1 (one) time each day at the same time., Disp: , Rfl: pioglitazone-metFORMIN (ACTOPlus Met) 15-850 MG tablet, 1 tablet, Disp: , Rfl: prednisoLONE acetate (Pred-Forte) 1 % ophthalmic suspension, PLEASE SEE ATTACHED FOR DETAILED DIRECTIONS, Disp: , Rfl: Refresh Tears 0.5 % ophthalmic solution, INSTILL 1 DROP INTO EACH EYE 3 TIMES A DAY NEEDED 30 DAYS, Disp: , Rfl: Rexulti 4 MG tablet, Take 1 tablet by mouth in the morning., Disp: , Rfl: sucralfate (Carafate) 1 g tablet, every 12 (twelve) hours., Disp: , Rfl: tiZANidine (Zanaflex) 4 MG tablet, Take 4 mg by mouth in the evening., Disp: , Rfl: triamcinolone (Kenalog) 0.1 % ointment, APPLY TWICE DAILY FOR 2 WEEKS APPLY TO LOWER LEGS DISCUSSED, Disp: , Rfl: zonisamide (Zonegran) 25 MG capsule, Twice daily, Disp: , Rfl: albuterol HFA 90 mcg/act inhaler, Inhale 2 puffs in the morning and 2 puffs in the evening and 2 puffs before bedtime., Disp: 18 g, Rfl: 5 budesonide-formoterol (Symbicort) 160-4.5 MCG/ACT inhaler, Inhale 2 puffs in the morning and 2 puffs before bedtime. Rinse mouth with water after use to reduce aftertaste and incidence of candidiasis. Do not swallow.., Disp: 1 each, Rfl: 5 guaiFENesin (Mucinex) 600 MG 12 hr tablet, Take 1 tablet (600 mg) by mouth in the morning and 1 tablet (600 mg) before bedtime. Do not crush, chew, or split.., Disp: 60 tablet, Rfl: 11 ipratropium-albuterol (Duo-Neb) 0.5-2.5 mg/3 mL nebulizer solution, Take 3 mL by nebulization 4 (four) times a day as needed for wheezing or shortness of breath, Disp: 360 mL, Rfl: 11 montelukast (Singulair) 10 MG tablet, Take 1 tablet (10 mg) by mouth 1 (one) time each day at the same time, Disp: 30 tablet, Rfl: 5 theophylline ER (Thad-24) 200 MG 24 hr capsule, Take 1 capsule (200 mg) by mouth 1 (one) time each day at the same time, Disp: 30 capsule, Rfl: 5 Past Medical History: Past Medical History: Diagnosis Date Acute hyperkalemia 01/14/2024 Acute metabolic encephalopathy 01/14/2024 PETRE (acute kidney injury) ([facility]) 01/14/2024 Anemia Anxiety Arthritis Bipolar 1 disorder ([facility]) 01/14/2024 Bipolar disorder with depression ([facility]) 01/14/2024 Breast cancer screening by mammogram 01/14/2024 Chronic depression ([facility]) 01/14/2024 Chronic fatigue 01/14/2024 Chronic hypercapnic respiratory failure ([facility]) 01/14/2024 Chronic kidney disease, stage 3 unspecified (HCC) ([facility]) COPD (chronic obstructive pulmonary disease) ([facility]) Debility 01/14/2024 Degenerative joint disease of cervical and lumbar spine 01/14/2024 Dehydration 01/14/2024 Diabetes ([facility]) 01/14/2024 Diabetic neuropathy ([facility]) 07/15/2023 Diarrhea 01/14/2024 Difficulty walking Disorder of sacroiliac joint 01/14/2024 DM type 2 (diabetes mellitus, type 2) ([facility]) Elevated troponin 01/14/2024 Epigastric pain 01/14/2024 Gait instability 01/14/2024 GERD (gastroesophageal reflux disease) Hallucinations, visual 01/14/2024 Hemosiderin pigmentation of skin 01/14/2024 Hypertension ([facility]) Hypomagnesemia 01/14/2024 Hypothyroidism ([facility]) 01/14/2024 Iron deficiency anemia 01/14/2024 Irritable bowel disease 01/14/2024 Kidney disease 01/14/2024 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 ([facility]) 01/14/2024 Lumbar degenerative disc disease 01/14/2024 Lumbar spondylolysis Lumbosacral spondylosis without myelopathy 01/14/2024 Major depressive disorder with psychotic features ([facility]) 01/14/2024 Mixed hyperlipidemia ([facility]) Monoclonal gammopathy 01/14/2024 Morbid obesity with BMI of 40.0-44.9, adult ([facility]) Morbid obesity with BMI of 45.0-49.9, adult ([facility]) 01/14/2024 Multiple falls 01/14/2024 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) ([facility]) 01/14/2024 OM (onychomycosis) On home oxygen therapy 01/14/2024 TANYA (obstructive sleep apnea) Osteoarthritis of back Other chronic pain 01/14/2024 Peripheral edema 01/14/2024 Pruritic erythematous rash 01/14/2024 Rhabdomyolysis 01/14/2024 Stage 3 chronic kidney disease (HCC) ([facility]) 01/14/2024 Symptomatic varicose veins of both lower extremities 01/14/2024 Thyroid disease ([facility]) 01/14/2024 Type 2 diabetes mellitus without complications ([facility]) 01/14/2024 Ulcer of left lower leg ([facility]) 01/14/2024 UTI (urinary tract infection) 01/14/2024 Venous reflux 01/14/2024 Venous stasis ulcer limited to breakdown of skin without varicose veins ([facility]) 01/14/2024 Vitamin D deficiency, unspecified Social History: Social History Tobacco Use Smoking status: Never Passive exposure: Never Smokeless tobacco: Never Substance Use Topics Alcohol use: Never Comment: Caffeine intake: 2-3 cups per day Vitals: BP 135/75 (BP Location: Left arm, Patient Position: Sitting) Pulse 97 Ht 5' 4 Wt 242 lb SpO2 98% BMI 41.54 kg/m Exam: Heart: regular rate Lungs: clear to auscultation bilaterally, no wheezes/rales/rhonchi, no resp distress Extremities: no edema noted, no visible rashes Neuro: alert, oriented x3 Imaging Reviewed: None Assessment/Plan: Diagnoses and all orders for this visit: Chronic obstructive pulmonary disease, unspecified COPD type ([facility]) - albuterol HFA 90 mcg/act inhaler; Inhale 2 puffs in the morning and 2 puffs in the evening and 2 puffs before bedtime. - budesonide-formoterol (Symbicort) 160-4.5 MCG/ACT inhaler; Inhale 2 puffs in the morning and 2 puffs before bedtime. Rinse mouth with water after use to reduce aftertaste and incidence of candidiasis. Do not swallow.. - guaiFENesin (Mucinex) 600 MG 12 hr tablet; Take 1 tablet (600 mg) by mouth in the morning and 1 tablet (600 mg) before bedtime. Do not crush, chew, or split.. - ipratropium-albuterol (Duo-Neb) 0.5-2.5 mg/3 mL nebulizer solution; Take 3 mL by nebulization 4 (four) times a day as needed for wheezing or shortness of breath - montelukast (Singulair) 10 MG tablet; Take 1 tablet (10 mg) by mouth 1 (one) time each day at thesame time - theophylline ER (Thad-24) 200 MG 24 hr capsule; Take 1 capsule (200 mg) by mouth 1 (one) time each day at the same time Obstructive sleep apnea syndrome COPD -- her breathing is currently well controlled. She did request refills on her medications at today's office visit. These were sent to the pharmacy for her. Given that she does have good control her breathing, no changes will be made. She will follow here in 6 months time unless needed before then. TANYA -- she does remain compliant with use of her CPAP machine. She denies any snoring or apneas while using the machine. She does use this on average at least 7 hours per night. She will continue with regular use of her CPAP given that she has been benefitting from and tolerating its use. Follow up in about 6 months (around 07/14/2024) for COPD. Svetlana Garcia DO documented in this encounterUniversity of Missouri Health [id number] Progress note Author Erica Diehl [facility] April 28, 2023 9:15amNote Date/TimeJanuary 2023 9:09[place] [address] Wound Center Provider Note Signed Patient: Kelsea Turcios MR#: [id number] : 1960 Acct:[id number] Age/Sex: 62 / F Copies to: DO Erica Miranda, JEWEL STRIPPER~ HPI Date of Visit Date of Visit: Date of Service: 04/28/2023 Time of Service: 09:06 Narrative HPI: 04/28/23 Kelsea is a 62-year-old female [facility] initial visit for evaluation and treatment of bilateral lower extremity ulcerations that do appear to be venous in nature but also have a concern for some sort of an autoimmune condition like vasculitis. She doeshave irritable bowel listed in her diagnoses but she in unaware if she has crohns or UC. I seethat she did have a PVR done in late 2022 and this does show normal arterial blood flow. She also had a venous duplex done in early 2022 and it did show reflux at that time and I do want to redo this studyto see if this has changed at all. I did tell Kelsea that I would like her to see a braille typist, especially if the venous studies do not per se indicate venous issues. She did state understanding ofthis. I did discuss with her an anti-inflammatory diet as well as supplements that can support healing and this information was provided on her discharge paperwork. Today we did utilize a topical steroid andthis was Escribed to her pharmacy. I do not see any signs of acute infection attodacarmen's visit. Kelsea will return to the office [...] for the past year Mode of Arrival/ Head Nurse: Personal vehicle Lives with:: Spouse Appetite Description: Within Normal Limits Smoking Status: Never smoker [facility] Medical History (Updated 04/28/23 @ 09:09 [...] Skin Breakdown Bed Appearance: Beefy Red and [place] Percent of Wound Bed Granulated/Red: 100 Percent of Devitalized: 0 Length (cm): 0.6 Width (cm): 0.5 Depth (cm): 0.1 CM Sq: 0.300 Surrounding Tissue Appearance: Hyperpigmented Surrounding Tissue Temp: Warm Drainage Amount: Scant Drainage Odor: No Odor Right Lower Leg: Type: Venous Stasis Ulcer Thickness: Skin Breakdown Bed Appearance: Beefy Red and [place] Percent of Wound Bed Granulated/Red: 100 Percent [...] 2 Diabetes mellitus complication status: with neurologic complicationsDiabetes mellitus complication detail: with polyneuropathy Code(s): E11.9 [...] By: <Electronically signed by LUCI Diehl> 04/28/2315 [facility] Work Phone: 1(774) 270-726912-07-2023 Evaluation note* Encounter Date Diagnosis Assessment Notes Treatment Notes Treatment Clinical Notes Mar, Diarrhea (ICD-10 - R19.7) [employer] [employer] Other 11-13-2023 Evaluation note* Encounter Date Diagnosis Assessment Notes Treatment Notes Treatment Clinical Notes Feb, Controlled type 2 di abetes mellitus with complication, without long-term current use of insulin (ICD-10 - E11.8) [facility] Other 10-27-2023 Evaluation note* Encounter Date Diagnosis Assessment Notes Treatment Notes Treatment Clinical Notes Jan, Well adult exam (ICD-10 - Z00.00 ) s/p hysterectomy - pap not indicated UTD on screening mammogram UTD on screening colonoscopyUp to date on flu, shingrix, RSV, pneumonia, COVID and TdaP vaccinationsDiscussed diet and regular exerciseReviewed recent screening lab work Jan,laudication of both lower extremities (ICD-10 - I73.9)Recommend PVR in bilateral LE for evaluation. DIscussed possible need for vascular f/u [employer] [facility] Other 10-24-2023 Evaluation note* Encounter Date Diagnosis Assessment Notes Treatment Notes Treatment Clinical Notes Jan, Controlled type 2 di abetes mellitus with complication, without long-term current use of insulin (ICD-10 - E11.8) [facility] [facility] Other 10-19-2023 Progress note Author Roxane Bills [facility] January 29, 2023 9:44amNote Date/TimeOctober 2022 9:02amThe [facility] [address] [address] Hem/Onc Follow Up Note - OP Signed Patient: Kelsea Turcios MR#: [id number] : 1960 Acct:[id number] Age/Sex: 62 / F Type: REG RCR Copies to: DO Peri Deleon DO~ Subjective Date/Time of Service: Date of Service: 01/29/2023 Time of Service: 09:00 Chief Complaint: Patient is here today for a 6 month follow up visit for MGUS and AMIE and go over labs HPI: 01/29/2023: Kelsea is here for 6-month follow-up of iron deficiency anemia and monoclonal gammopathyof undetermined significance with possible associated neuropathy. No [...] involving the pelvis. She recently has had inc reased pain medication with hydrocodone acetaminophen to 3 times daily for pain. She remains on gabapentin 300 mg 3 times daily for her chronic neuropathy. No change in bowel movements with chronic diarrhea. Her laboratories showed normal hemoglobin 12.3 with creatinine 1.37 which is improved from prior chemistry profiles. Calcium is normal at 8.6. Iron saturation is stable at 23.8% with ferritinnormal at 192.2. Serum protein electrophoresis did not [...] kappa/lambda lightchain ratio but no evidence of amyloidosisor plasma cell dyscrasia on bone marrow biopsy 09/26/2021. She did not note any significant improvement of fatigue with iron infusions, however she did have improvement of her iron saturation from 15%to 23 with normal ferritin to 84. Hemoglobin which was mildly decreased at 11.2 is now up to 12.1. Monoclonal gammopathy labs show M spike 0.5 (previously 0.4), stable kappa/lambda light chain ratio of 3.66, stable IgA 656. No indication for bone marrow biopsy or further work-up of her monoclonal ga mmopathy of undetermined significance. She had unremarkable skeletal [...] overall with slightly increased K/L ratio. We willorder imaging on her lower back/hip area to [...] about 4 weeks ago. She did not haveany monoclonality noted on urinalysis but does have a mildly elevated kappa/lambda light chain ratio. The patient was given the option of surveillance with every 3-month monoclonal gammopathy labs versus bonemarrow biopsy to determine if she has presence of amyloidosis or other plasma cell dyscrasia. Patient notes that she has been suffering with polyneuropathy and would like to proceed with bonemarrow biopsy for further evaluation. Due to her [...] was significantly worse. She had an MRI ofthe lumbar spine without contrast on 09/14/2020 showing [...] work-up with serum protein electrophoresis on 07/02/2021 showinga monoclonal spike of 0.4 g/dL (no prior labs for comparison). Serum immunofixation showed a monoclonal protein with kappa light chain specificity however quantitative immunoglobulin showed anelevation of IgA at 508 with normal IgG 1134 and IgM 79. She had an antineutrophil antibody screen that wasnegative and rheumatoid factor was less than 10. She reports chronic fatigue, progressive increase in weight and she is noted to have a BMI of 49. She has mild anemia with most recent hemoglobin 11.6, elevated erythrocyte sedimentation rate of 65, most recent renal function panel showed a creatinine of 1.64 correlating to EGFR, pgf-Anqywen-Rubqbvky 32. This has not significantly changed over the last year but is lower than prior labs from [id number]. Most recent calcium within normal limits and we do not have recent imaging other than her MRIswhich have not shown any bony lytic lesions. [...] chronic cough and dyspnea. Chronic oxygen dependence dueto COPD. CARDIOVASCULAR: Negative for claudication and irregular [...] distant breath sounds. No audible wheezing, rales, rhonchior rubs. Normal effort. Supplemental oxygen in place. [...] H, IgM 107, Serum Immunofixation A, Free [place] LC, Quant 237.9 H, Free Lambda LC, Quant 38.0 H, Free [place]/Lambda Ratio 6.26 H 01/22/23 13:24: PHA Creatinine Clear 44.97, Sodium 141, Potassium 4.2, Chloride 100, Carbon Deupbbm11.1 H, Anion Gap 13.1, BUN 13, Creatinine 1.37 H, Est GFR (CKD-EPI) 43.118, Glucose 199 H, Calcium8.6, Iron 74, TIBC 311, Iron Bpiyagophc64.8, Transferrin 222, Ferritin 192.2, Total Bilirubin 0.4, [...] % (Auto) 64.2, Lymph % (Auto) 25.5, [place] % (Auto) 5.6, Eos % (Auto) 4.2, Baso % (Auto) 0.5, Nucleat RBC Rel Count 0.0, Neut # (Auto) 8.0 H, Lymph # (Auto) 3.2, [place] # (Auto) 0.7, Eos # (Auto) 0.5 [...] increase in weight and she is noted tohave a BMI of 49. She has mild anemia with most recent hemoglobin 11.6, elevated erythrocyte sedimentation rate of 65, most recent renal function panel showed a creatinine of 1.64 correlating to EGFR, kwm-Eywvyne-Muheioac 32. This has not significantly changed over the last year but is lower than prior labs from [id number]. Most recent calcium within normal limits and we do not have recent imagingother than her MRIs which have not shown [...] monoclonality, and kappa/lambdalight chain analysis with mild elevationof ratio. In addition she was noted tohave [...] light chain analysis. We will also repeat CBC,CMP, and Serum iron profile/ferritin level 10. Moderate [...] in 3 months, sooner as needed. She isin agreement with this plan and has no [...] 2 Diabetes mellitus complication status: with neurologic complicationsDiabetes mellitus complication detail: with polyneuropathy (7) Morbid [...] for coordination of care (as documented) and [id number] counseling of patient and/or family. Dictated By: Roxane Bills MD DD/ 0900 Signed By: <Electronically signed by MD Roxane Bills> 01/29/23 0928 [facility] Work Phone: [phone]) 630-334110-11-2023 Evaluation note* Encounter Date Diagnosis Assessment Notes Treatment Notes Treatment Clinical Notes Jan, Left hip pain (ICD-10 - M25.552) [facility] [employer] Other 10-02-2023 Evaluation note* Encounter Date Diagnosis Assessment Notes Treatment Notes Treatment Clinical Notes Jan, Other chronic pain (ICD-10 - G89 .29) Jan,Lumbago with sciatica, left side (ICD-10 - M54.42) [facility] Other 09-05-2023 Evaluation note* Encounter Date Diagnosis Assessment Notes Treatment Notes Treatment Clinical Notes Dec, Acquired lymphedema of lower ext remity (ICD-10 - I89.0) [facility] Other 07-17-2023 Evaluation note* Encounter Date Diagnosis Assessment Notes Treatment Notes Treatment Clinical Notes Oct, Type 2 diabetes ahsan itus with diabetic chronic kidney disease (ICD- 10 - E11.22) [facility] Other 07-03-2023 Evaluation note* Encounter Date Diagnosis Assessment Notes Treatment Notes Treatment Clinical Notes Oct, Other chronic pain (ICD-10 - G89 .29) [facility] Other 06-28-2023 Evaluation note* Encounter Date Diagnosis Assessment Notes Treatment Notes Treatment Clinical Notes Sep, Gait instability (ICD-10 - R26.8 1) [employer] Other 06-06-2023 Evaluation note* Encounter Date Diagnosis Assessment Notes Treatment Notes Treatment Clinical Notes Sep, Left hip pain (ICD-10 - M25.552) With radiation down posterior left leg, will obtain an MRI for further evaluation. She is currentlyin PT without improvement. Sep,ait instability (ICD-10 - R26.81)Patient will highly benefit from a Rollator device to assist with ambulation, steadying gait, decreasing risk for fall. As she is on chronic supplemental O2 the rollator will need an oxygen tank singh. Sep,Neuropathy (ICD-10 - G62.9) Sep,Frequent falls (ICD-10 - R29.6) Sep,hronic obstructive pulmonary disease, unspecified (ICD-10 - J44.9) [facility] Other 05-30-2023 Evaluation note* Encounter Date Diagnosis Assessment Notes Treatment Notes Treatment Clinical Notes August, Lumbosacral spondylosis without myelopathy (ICD-10 - M47.817) [facility] [facility] Other 05-02-2023 Evaluation note* Encounter Date Diagnosis Assessment Notes Treatment Notes Treatment Clinical Notes August, Chronic obstructive pulmonary disease, unspecified (ICD-10 - J44.9) [facility] Other 04-21-2023 Evaluation note* Encounter Date Diagnosis Assessment Notes Treatment Notes Treatment Clinical Notes Jul, Controlled type 2 di abetes mellitus with complication, without long-term current use of insulin (ICD-10 - E11.8) [employer] Other 04-20-2023 Progress note Author Roxane Bills [facility] July 31, 2022 1:09pmNote Date/TimeApril 2022 3:08pmThe [facility] [place] [address] Hem/Onc Follow Up Note - OP Signed Patient: Kelsea Turcios MR#: [id number] : 1960 Acct:[id number] Age/Sex: 61 / F Type: REG RCR Copies to: DO Peir Deleon DO~ Subjective Date/Time of Service: Date [...] kappa/lambda lightchain ratio but no evidence of amyloidosisor plasma cell dyscrasia on bone marrow biopsy 09/26/2021. She did not note any significant improvement of fatigue with iron infusions, however she did have improvement of her iron saturation from 15%to 23 with normal ferritin to 84. Hemoglobin which was mildly decreased at 11.2 is now up to 12.1. Monoclonal gammopathy labs show M spike 0.5 (previously 0.4), stable kappa/lambda light chain ratio of 3.66, stable IgA 656. No indication for bone marrow biopsy or further work-up of her monoclonal ga mmopathy of undetermined significance. She had unremarkable skeletal [...] overall with slightly increased K/L ratio. We willorder imaging on her lower back/hip area to [...] about 4 weeks ago. She did not haveany monoclonality noted on urinalysis but does have a mildly elevated kappa/lambda light chain ratio. The patient was given the option of surveillance with every 3-month monoclonal gammopathy labs versus bonemarrow biopsy to determine if she has presence of amyloidosis or other plasma cell dyscrasia. Patient notes that she has been suffering with polyneuropathy and would like to proceed with bonemarrow biopsy for further evaluation. Due to her [...] was significantly worse. She had an MRI ofthe lumbarspine without contrast on 09/14/2020 showing a [...] work-up with serum protein electrophoresis on 07/02/2021 showinga monoclonal spike of 0.4 g/dL (no prior labs for comparison). Serum immunofixation showed a monoclonal protein with kappa light chain specificity however quantitative immunoglobulin showed anelevation of IgA at 508 with normal IgG 1134 and IgM 79. She had an antineutrophil antibody screen that wasnegative and rheumatoid factor was less than 10. She reports chronic fatigue, progressive increase in weight and she is noted to have a BMI of 49. She has mild anemia with most recent hemoglobin 11.6, elevated erythrocyte sedimentation rate of 65, most recent renal function panel showed a creatinine of 1.64 correlating to EGFR, dko-Uihhlln-Lbrcbzho 32. This has not significantly changed over the last year but is lower than prior labs from 4324-7117. Most recent calcium within normal limits and we do not have recent imaging other than her MRIswhich have not shown any bony lytic lesions. [...] chronic cough and dyspnea. Chronic oxygen dependence dueto COPD. CARDIOVASCULAR: Negative for claudication and irregular [...] lumbar back pain with radiculopathy. No other bone/jointsymptoms. HEMATOLOGICAL: Negative for bleeding and easy bruising. [...] distant breath sounds. No audible wheezing, rales, rhonchior rubs. Normal effort. CARDIOVASCULAR: Regular rate and [...] - Last 7 Days 07/22/22 09:12: Free Willington LC, Quant 120.4 H, Free Lambda LC, [...] increase in weight and she is noted tohave a BMI of 49. She has mild anemia with most recent hemoglobin 11.6, elevated erythrocyte sedimentation rate of 65, most recent renal function panel showed a creatinine of 1.64 correlating to EGFR, ulz-Gqskbvw-Igqrfzcx 32. This has not significantly changed over the last year butis lower than prior labs from 0718-3650. Most recent calcium within normal limits and [...] monoclonality, and kappa/lambdalight chain analysis with mild elevationof ratio. In addition she was noted tohave [...] light chain analysis. We will also repeat CBC,CMP, and Serum iron profile/ferritin level 10. Moderate [...] in 3 months, sooner as needed. She isin agreement with this plan and has no [...] noted above. Low complexity 25-minute follow-up visit. (2) Iron deficiency anemia Qualifiers: [...] 2 Diabetes mellitus complication status: with neurologic complicationsDiabetes mellitus complication detail: with polyneuropathy (6) Degenerative joint disease of cervical and lumbar spine (7) Morbid obesity (8) Bipolar disorder with depression - Time with Patient Time Spent with Patient (Follow Up Visit): 25 minutes - Low complexity visit to review iron studiesand MGUS labs, follow-up frequency. Coordination of Care & Counseling Time: Greater than 50% of time spent with patient was for coordination of care (as documented) and sxiz-qp-ryvw counseling of patient and/or family. Dictated By: Roxane Bills MD DD/ [id number] Signed By: <Electronically signed by MD Roxane Bills> 07/31/22 130[address] [facility] Work Phone: [phone]) 184-543304-07-2023 Evaluation note* Encounter Date Diagnosis Assessment Notes Treatment Notes Treatment Clinical Notes Jul, Essential hypertension (ICD-10 - I10) [employer] Other 04-06-2023 Evaluation note* Encounter Date Diagnosis Assessment Notes Treatment Notes Treatment Clinical Notes Jul, Type 2 diabetes ahsan itus with diabetic chronic kidney disease (ICD- 10 - E11.22) [employer] Other 04-03-2023 Evaluation note* Encounter Date Diagnosis Assessment Notes Treatment Notes Treatment Clinical Notes Jul, Essential hypertension (ICD-10 - I10) [employer] Other 03-27-2023 Evaluation note* Encounter Date Diagnosis [...] activity in the overall management of her chronicvein disease. She verbalizes understanding of all discussion, agrees with plan, denies any questions. [employer] Other 03-23-2023 NoteCONSULTATION CONSULTATION DATE: 07/03/2022 TO: Dr. Tyson [facility] CHIEF COMPLAINT: Left lower back pain. HISTORY: [...] one pill up to b.i.d. as tolerated.[facility] [id number] Evaluation note* Encounter Date Diagnosis Assessment Notes Treatment Notes Treatment Clinical Notes Jun, Type 2 diabetes ahsan itus with diabetic chronic kidney disease (ICD- 10 - E11.22) Jun,cquired lymphedema of lower extremity (ICD-10 - I89.0) Jun,ough (ICD-10 - R05.9) [employer] Other 02-02-2023 Evaluation note* Encounter Date Diagnosis Assessment Notes Treatment Notes Treatment Clinical Notes May, Conjunctivitis (ICD-10 - H10.9) [employer] Other 01-25-2023 Evaluation note* Encounter Date Diagnosis Assessment Notes Treatment Notes Treatment Clinical Notes Apr, Type 2 diabetes ahsan itus with diabetic chronic kidney disease (ICD- 10 - E11.22) A1c mildly increased today at 7.6 with elevated blood sugars throughout the day. Recommend increasing Actos-Metformin to BID. She will continue to check home sugars. She will continue current dose ofFarxiga and Basaglar. She was referred to endocrinology by pain management. Apr,reast cancer screening (ICD-10 - Z12.39)Due for screening mammogram Apr,cquired hypothyroidism (ICD-10 - E03.9)Due for TFTs, in setting of proptosis Apr,Essential hypertension (ICD-10 - I10)Controlled on current dose of antihypertensives, will continue [employer] Other 01-24-2023 NoteCONSULTATION CONSULTATION DATE: 05/06/2022 CHIEF COMPLAINT: Low back pain, bilateral lower extremity pain. HISTORY OF PRESENT ILLNESS: This is a 61-year-old female who is referred to us by Dr. Peri Tyson from [facility]. The patient has [...] kidney disease. The patient takes half a Meyersdale tablet on a p.r.n. basis, duloxetine 60 [...] patient responds, we can increase that to Meyersdale 5/325 on a t.i.d. basis. I would [...] understands and would like to proceed. CC: Laureen Maddox D.O.[facility] [id number] Progress note Author Raymundo [facility] April 23, 2022 12:40pmNote Date/TimeJan2022 11:14[facility] [place] [address] Hem/Onc Follow Up Note - OP Signed Patient: Kelsea Turcios MR#: [id number] : 1960 Acct:[id number] Age/Sex: 61 / F Type: REG RCR [...] overall with slightly increased K/L ratio. We willorder imaging on her lower back/hip area to [...] about 4 weeks ago. She did not haveany monoclonality noted on urinalysis but does have a mildly elevated kappa/lambda light chain ratio. The patient was given the option of surveillance with every 3-month monoclonal gammopathy labs versus bonemarrow biopsy to determine if she has presence of amyloidosis or other plasma cell dyscrasia. Patient notes that she has been suffering with polyneuropathy and would like to proceed with bonemarrow biopsy for further evaluation. Due to her [...] a creatinine of 1.64 correlating to EGFR, lae-Jbqpflm-Nobemdrh 32. This has not significantly changed over the last year but is lower than prior labs from 5642-1766. Most recent calcium within normal limits and we do not have recent imaging other than her MRIswhich have not shown any bony lytic lesions. [...] distant breath sounds. No audible wheezing, rales, rhonchior rubs. Normal effort. CARDIOVASCULAR: Regular rate and [...] 3.4, Globulin (PEP) 3.9, Albumin/Globulin (PEP) 0.9, Esjai-8-Ayjbplklg 0.3, Otgzb-5-Koscsjbtr 0.9, Beta Globulins 1.4 H, Gamma Globulins 1.3, M-Damien 0.4 H, PEP Note , IgG 1443, IgA 625 H, IgM 98, Free Willington LC, Quant 162.6 H, Free Lambda LC, Quant 44.5 H, Free Willington/Lambda Ratio 3.65 H 04/17/22 10:05: PHA Creatinine Clear 51.63, Sodium 138, Potassium 3.5, Chloride 98, Carbon Dioxide 30.7 H, Anion Gap 12.8, BUN 17, Creatinine 1.26 H, Est GFR ( Amer) 52, Est GFR (Non-Af Amer) 43, Glucose 269 H, Calcium 9.1, Iron 53, TIBC 346, Iron Saturation 15.3 L, Transferrin 247, Rzczfrms53.6, Total Bilirubin 0.3, AST 23, ALT 22, Alkaline Phosphatase 121 H, Total Protein 7.0, Albumin 3.2, Globulin 3.8, Albumin/Globulin Ratio 0.8 04/17/22 10:05: Corrected WBC 10.8, Uncorrected WBC Count 10.8, RBC 4.02, Hgb 11.2 L, Hct 35.4, MCV88.1, MCH 27.9, MCHC 31.6 L, RDW 15.7 H, Plt Count 273, MPV 7.6, Neut % (Auto) 61.2, Lymph % (Auto)24.5, [place] % (Auto) 7.9, Eos % (Auto) 5.9, Baso % (Auto) 0.5, Nucleat RBC Rel Count 0.2, Neut # (Auto) 6.6, Lymph # (Auto) 2.6, [place] # (Auto) 0.8, Eos # (Auto) 0.6 H, Baso # (Auto) 0.1 Assessment and Plan (1) 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 She has mild anemia with most recent hemoglobin 11.6, elevated erythrocyte sedimentation rate of 65, most recent renal function panel showed a creatinine of 1.64 correlating to EGFR, tsi-Xvhkvgj-Rpdncohv 32. This has not significantly changed over the last year but is lower than prior labs from 9675-7176. Most recent calcium within normal limits and we do not have recent imagingother than her MRIs which have not shown [...] monoclonality, and kappa/lambdalight chain analysis with mild elevationof ratio. In addition she was noted tohave [...] light chain analysis. We will also repeat CBC,CMP, and Serum iron profile/ferritin level 10. Moderate [...] in 3 months, sooner as needed. She isin agreement with this plan and has no [...] 2 Diabetes mellitus complication status: with neurologic complicationsDiabetes mellitus complication detail: with polyneuropathy (6) Degenerative [...] for coordination of care (as documented) and jsai-oq-xelw counseling of patient and/or family. Dictated By: Raymundo Galicia APRN DD/ 1114 Signed By: <Electronically signed by LUCI Galicia> 04/23/22 12[address] [facility] Work Phone: 1(897) 898-986901-10-2023 Evaluation note* Encounter Date Diagnosis Assessment Notes Treatment Notes Treatment Clinical Notes Apr, Controlled substance agreement s igned (ICD-10 - Z79.899) [employer] Other 01-09-2023 Evaluation note* Encounter Date Diagnosis Assessment Notes Treatment Notes Treatment Clinical Notes Apr, Unspecified vitamin D deficiency (ICD9-CM - 268.9) Apr,Type 2 diabetes mellitus with diabetic chronic kidney disease (ICD- 10 - E11.22) [employer] Other 11-28-2022 Evaluation note* Encounter Date Diagnosis Assessment Notes Treatment Notes Treatment Clinical Notes Feb, Type 2 diabetes ahsan itus with diabetic chronic kidney disease (ICD- 10 - E11.22) [employer] Other 11-08-2022 Evaluation note* Encounter Date Diagnosis Assessment Notes Treatment Notes Treatment Clinical Notes Feb, Controlled substance agreement s igned (ICD-10 - Z79.899) Feb,bdominal pain (ICD-10 - R10.9) [employer] Other 11-03-2022 Evaluation note* Encounter Date Diagnosis Assessment Notes Treatment Notes Treatment Clinical Notes Feb, Acquired lymphedema of lower ext remity (ICD-10 - I89.0) [employer] Other 11-01-2022 Evaluation note* Encounter Date Diagnosis Assessment Notes Treatment Notes Treatment Clinical Notes Feb, Type 2 diabetes mellitus without complications (ICD-10 - E11.9) [employer] Other 10-31-2022 Evaluation note* Encounter Date Diagnosis Assessment Notes Treatment Notes Treatment Clinical Notes Jan, UTI (urinary tract infection) (I CD-10 - N39.0) [employer] Other 10-24-2022 Evaluation note* Encounter Date Diagnosis Assessment Notes Treatment Notes Treatment Clinical Notes Jan, Type 2 diabetes ahsan itus with diabetic chronic kidney disease (ICD- 10 - E11.22) A1c at goal on current medications, will continue. Jan,Flank pain (ICD-10 - R10.9)UA without blood, small LE, will send for culture. Likely MSK, discussed recommendation for heatingpad, OTC topical relief. To follow up if no improvement or worsening symptoms. Jan,Essential hypertension (ICD-10 - I10)BP well controlled on current medications, will continue [employer] Other 10-12-2022 Evaluation note* Encounter Date Diagnosis Assessment Notes Treatment Notes Treatment Clinical Notes Jan, Controlled substance agreement s igned (ICD-10 - Z79.899) [employer] Other 09-12-2022 Evaluation note* Encounter Date Diagnosis Assessment Notes Treatment Notes Treatment Clinical Notes Dec, Other chronic pain (ICD-10 - G89 .29) Was working on previous PCP to wean down on dosage of Meyersdale 5-325. She currently is not taking thisevery day. She has upcoming f/u for a back injection and was recommended to consider pain management referral for RFA. Can continue use of Meyersdale sparingly as needed for severe pain. I have personally reviewed the OAR[place] report for this patient. I have considered the risks of abuse,dependence, addiction and diversion. I believe that it is clinically appropriate for this patient to be prescribed this medication based on documented diagnosis. CSA and Utox obtained today Dec,ontrolled substance agreement signed (ICD-10 - Z79.899) Dec,Hematuria, unspecified type (ICD-10 - R31.9)UA without hematuria currently. Patient declines pelvic exam for evaluation. Trace LE on UA, will se nd urine culture. To follow up if any recurrent episodes and would recommend pelvic exam for evaluation. Dec,ontrolled type 2 diabetes mellitus with complication, without long- term current use of insulin (ICD-10 - E11.8)With elevated blood sugars in the afternoon will adjust timing of basaglar to the AM. Follow up in 6 weeks for recheck of a1c. Dec,Essential hypertension (ICD-10 - I10)Controlled on current dose of amlodipine and clonidine, will continue Dec,SA (obstructive sleep apnea) (ICD-10 - G47.33)Referral to sleep medicine for evaluation with ?diagnosis of narcolepsy in setting of TANYA. [employer] Other 08-19-2022 Evaluation note* Encounter Date Diagnosis Assessment Notes Treatment Notes Treatment Clinical Notes Nov, Essential hypertension (ICD-10 - I10) [employer] Other 07-14-2022 Progress note Author Roxane Bills [facility] October 24, 2021 2:26pmNote Date/TimeJuly 2021 1:18pm[facility] [place] [address] Hem/Onc Follow Up Note - OP Signed Patient: Kelsea Turcios MR#: [id number] : 1960 Acct:[id number] Age/Sex: 61 / F Type: REG RCR [...] about 4 weeks ago. She did not haveany monoclonality noted on urinalysis but does have a mildly elevated kappa/lambda light chain ratio. The patient was given the option of surveillance with every 3-month monoclonal gammopathy labs versus bonemarrow biopsy to determine if she has presence of amyloidosis or other plasma cell dyscrasia. Patient notes that she has been suffering with polyneuropathy and would like to proceed with bonemarrow biopsy for further evaluation. Due to her [...] a creatinine of 1.64 correlating to EGFR, hst-Amqkvys-Xdilogca 32. This has not significantly changed over the last year but is lower than prior labs from 5515-5040. Most recent calcium within normal limits and we do not have recent imaging other than her MRIswhich have not shown any bony lytic lesions. [...] chronic cough and dyspnea. Chronic oxygen dependence dueto COPD. CARDIOVASCULAR: Negative for claudication and irregular [...] lumbar back pain with radiculopathy. No other bone/jointsymptoms. HEMATOLOGICAL: Negative for bleeding and easy bruising. [...] distant breath sounds. No audible wheezing, rales, rhonchior rubs. Normal effort. CARDIOVASCULAR: Regular rate and [...] increase in weight and she is noted tohave a BMI of 49. She has mild anemia with most recent hemoglobin 11.6, elevated erythrocyte sedimentation rate of 65, most recent renal function panel showed a creatinine of 1.64 correlating to EGFR, vfg-Nhnyvyq-Nsfbcjgb 32. This has not significantly changed over the last year but is lower than prior labs from 8877-5632. Most recent calcium within normal limits and we do not have recent imagingother than her MRIs which have not shown [...] monoclonality, and kappa/lambdalight chain analysis with mild elevationof ratio. In addition she was noted tohave [...] light chain analysis. We will also repeat CBC,CMP, and Serum iron profile/ferritin level 10. Moderate [...] 2 Diabetes mellitus complication status: with neurologic complicationsDiabetes mellitus complication detail: with polyneuropathy (6) Degenerative [...] for coordination of care (as documented) and wtuv-gn-ftod counseling of patient and/or family. Dictated By: Roxane Bills MD DD/ 1317 Signed By: <Electronically signed by MD Roxane Bills> 10/24/21 7[address] [facility] Work Phone: 1(227) 262-551907-11-2022 Evaluation note* Encounter Date Diagnosis Assessment Notes Treatment Notes Treatment Clinical Notes Oct, Type 2 diabetes ahsan itus with diabetic chronic kidney disease (ICD- 10 - E11.22) A1c is up slightly today to 7.2%. Patient checks her sugars periodically. Denies any low readings. For now we will continue her current regimen. Do encourage her to begin checking her sugars more frequently. Repeat A1c in 3 months. Oct,Essential hypertension (ICD-10 - I10)Blood pressure is again elevated. I do recheck in the office and get similar reading. She is taking Lasix, amlodipine and carvedilol twice a day. Discussed addition of a another agent. She states shehas taken lisinopril in the past but it caused hyperkalemia. We will go ahead and start her on clonidine 0.1 mg twice a day. She may follow-up in approximately [address] Tyson for recheck. Add itionally lab work as shown slow decrease in kidney function. Given that she is on Lasix I would like to repeat the chemistry panel at this time. [employer] Other 06-23-2022 Evaluation note* Encounter Date Diagnosis Assessment Notes Treatment Notes Treatment Clinical Notes Sep, Anemia NOS (ICD9-CM - 285.9) [employer] Other 06-09-2022 Evaluation note* Encounter Date Diagnosis Assessment Notes Treatment Notes Treatment Clinical Notes Sep, Type 2 diabetes ahsan itus with diabetic chronic kidney disease (ICD- 10 - E11.22) [employer] Other 06-01-2022 Progress note Author Roxane Bills [facility] September 11, 2021 2:34pmNote Date/TimeJun2021 10:47[facility] [place] [id number] Hem/Onc Follow Up Note - OP Signed Patient: Kelsea Turcios MR#: [id number] : 1960 Acct:[id number] Age/Sex: 60 / F Type: REG RCR [...] about 4 weeks ago. She did not haveany monoclonality noted on urinalysis but does have a mildly elevated kappa/lambda light chain ratio. The patient was given the option of surveillance with every 3-month monoclonal gammopathy labs versus bonemarrow biopsy to determine if she has presence of amyloidosis or other plasma cell dyscrasia. Patient notes that she has been suffering with polyneuropathy and would like to proceed with bonemarrow biopsy for further evaluation. Due to her [...] a creatinine of 1.64 correlating to EGFR, yns-Ddyvoef-Jkxiehru 32. This has not significantly changed over the last year but is lower than prior labs from 8716-9398. Most recent calcium within normal limits and we do not have recent imaging other than her MRIswhich have not shown any bony lytic lesions. [...] chronic cough and dyspnea. Chronic oxygen dependence dueto COPD. CARDIOVASCULAR: Negative for claudication and irregular [...] lumbar back pain with radiculopathy. No other bone/jointsymptoms. HEMATOLOGICAL: Negative for bleeding and easy bruising. [...] mL nebulization soln 3 ml INHALATION Q6H 07/29/21[History Confirmed 09/11/21] levomilnacipran 120 mg capsule,24 hr,extended [...] distant breath sounds. No audible wheezing, rales, rhonchior rubs. Normal effort. CARDIOVASCULAR: Regular rate and [...] 1134 and IgM 79. She had an a ntineutrophil antibody screen that was negative and rheumatoid [...] major joints. There is minor scarring or atelectasisat the left lung. XR/XR bone survey IMPRESSION: NO SUSPECTED MYELOMATOUS LESIONS. 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 She has mild anemia with most recent hemoglobin 11.6, elevated erythrocyte sedimentation rate of 65, most recent renal function panel showed a creatinine of 1.64 correlating to EGFR, rzg-Rwfsxwu-Mixiaxqn 32. This has not significantly changed over the last year but is lower than prior labs from 2528-3508. Most recent calcium within normal limits and we do not have recent imagingother than her MRIs which have not shown [...] monoclonality, and kappa/lambdalight chain analysis with mild elevationof ratio. In addition she was noted tohave [...] 2 Diabetes mellitus complication status: with neurologic complicationsDiabetes mellitus complication detail: with polyneuropathy (5) Degenerative joint disease of cervical and lumbar spine (6) Morbid obesity (7) Bipolar disorder with depression - Time with Patient Time Spent with Patient (Follow Up Visit): 25 minutes Coordination of Care & Counseling Time: Greater than 50% of time spent with patient was for coordination of care (as documented) and pvcm-dx-rekr counseling of patient and/or family. Dictated By: Roxane Bills MD DD/ 1045 Signed By: <Electronically signed by MD Roxane Bills> 09/11/21 8044 [facility] Work Phone: 1([phone]) 595-300905-12-2022 Evaluation note* Encounter Date Diagnosis Assessment Notes Treatment Notes Treatment Clinical Notes August, Lumbar radiculopathy (ICD-10 - M 54.16) 60 y/o female presents with complaints of low back pain with radiation down the posterior aspect ofbilateral thighs to the calves. She also complains of lower extremity pain secondary to peripheral neuropathy. She states her pain has been present for many years, becoming gradually worse. She has tried physical therapy in the past which aggravated her pain. She denies any prior back surgery. She r eports prior injections at [facility] with Dr. Groves. She feels pain [...] treatment options were discussed in detail with patientin regards to patients condition. I recommend that we proceed with a L4-5 lumbar epidural steroid injection under fluoroscopic guidance. Risks and benefits of procedure explained to patient; patient verbalizes understanding. In the meantime, I will order a dynamic x-ray of the lumbar spine to further evaluate her pain. August,Lumbar degenerative disc disease (ICD-10 - M51.36) Continue with current treatment plan. August,Lumbosacral spondylosis without myelopathy (ICD-10 - M47.817) We can consider proceeding with a lumbar MBB in the future, followed by RFA if applicable. August,acroiliitis (ICD-10 - M46.1) If her pain persists or worsens, we can consider SI joint injections in the future. August,ther chronic pain (ICD-10 - G89.29) Follow up after procedure. August,therMedical decision making shows a new problem to me with further workup planned or suggested with thepotential for extensive treatment options that were considered with the most applicable given this patient's situation as noted above. Treatment options considered include a combination of physical th erapy approaches, pharmacologic management, and interventional procedures. Those most applicable tothe patient were discussed at this time. Risk [...] prolonged functional impairment requiring constant patient reassessment andhigh-level medical decision making. The amount and complexity of data reviewed is high given that patient labs, radiology reports, and other test were obtained, reviewed and summarized as applicable from the physician portal and/or outside medical records. Pertinent positive and negative findings were considered in medical decision-making. [employer] Other 05-07-2022 Consult note Author Roxane Bills [facility] August 16, 2021 10:27pmNote Date/TimeMay 2021 10:19[facility] [place] [address] Hem/Onc Consult Note - OP Signed Patient: Kelsea Turcios MR#: [id number] : 1960 Acct:[id number] Age/Sex: 60 / F Type: REG RCR [...] type and moderate in severity. She had aprior EMG in 2016 but most recent EMG [...] a creatinine of 1.64 correlating to EGFR, fqe-Hrzealj-Prqmouew 32. This has not significantly changed over the last year but is lower than prior labs from 1652-7144. Most recent calcium within normal limits and we do not have recent imaging other than her MRIswhich have not shown any bony lytic lesions. The patient does report diffuse pain. She has urinary tract infections intermittently but no other history of chronic infections. She has no personal history of malignancy, chemotherapy, or radiation therapy. [facility] - History Attestation statement: The following [...] mL nebulization soln 3 ml INHALATION Q6H 07/29/21[History Confirmed 08/16/21] levomilnacipran 120 mg capsule,24 hr,extended [...] chronic cough and dyspnea. Chronic oxygen dependence dueto COPD. CARDIOVASCULAR: Negative for claudication and irregular [...] lumbar back pain with radiculopathy. No other bone/jointsymptoms. HEMATOLOGICAL: Negative for bleeding and easy bruising. [...] distant breath sounds. No audible wheezing, rales, rhonchior rubs. Normal effort. CARDIOVASCULAR: Regular rate and [...] 1134 and IgM 79. She had an a ntineutrophil antibody screen that was negative and rheumatoid [...] increase in weight and she is noted tohave a BMI of 49. She has mild anemia with most recent hemoglobin 11.6, elevated erythrocyte sedimentation rate of 65, most recent renal function panel showed a creatinine of 1.64 correlating to EGFR, mrm-Mltkwhh-Vosxabcv 32. This has not significantly changed over the last year but is lower than prior labs from 1595-9826. Most recent calcium within normal limits and we do not have recent imagingother than her MRIs which have not shown [...] bone marrow aspiration and biopsy to determine ifshjose has a plasma cell dyscrasia and/or presence [...] 2 Diabetes mellitus complication status: with neurologic complicationsDiabetes mellitus complication detail: with polyneuropathy (5) Degenerative [...] for coordination of care (as documented) and aciv-fl-alng counseling of patient and/or family. Dictated By: Roxane Bills MD DD/ [id number] Signed By: <Electronically signed by MD Roxane Bills> 08/16/21 5812 [facility] Work Phone: [phone]) 777-914104-27-2022 Evaluation note* Encounter Date Diagnosis Assessment Notes Treatment Notes Treatment Clinical Notes Jul, Low back pain, unspecified (ICD- 10 - M54.50) Patient would like to discuss a referral to pain management. She has a long history of low back pain and reported sciatic symptoms. She has been under the care of neurology, Dr. Groves for this. Patient reports that she has been receiving injections of the lumbar spine with varying results. I havenot received records from Dr. Groves's office and do not know the details of the procedures but will be requesting records. Patient states that the injections seem to be providing less and shorter relief over time. Patient would like to transition care to pain management to see if there are any additional options. Of note the patient did have an MRI at [facility] about 1 year ago. This showed lipoma [...] Percocet multiple times a day from the [facility]. I have gradually weaned her dose down and I explained her that my plan is to continue to wean the dose down as I do not typically treat chronic pain with opiates. She has been cooperative with this. She may get opinion from her neurologist or when she establishes with pain management. Jul,ther chronic pain (ICD-10 - G89.29) [employer] Other 04-27-2022 Evaluation note* Encounter Date Diagnosis Assessment Notes Treatment Notes Treatment Clinical Notes Jul, Acquired lymphedema of lower ext remity (ICD-10 - I89.0) Jul,Type 2 diabetes mellitus with diabetic chronic kidney disease (ICD- 10 - E11.22) [employer] Other 04-11-2022 Evaluation note* Encounter Date Diagnosis Assessment Notes Treatment Notes Treatment Clinical Notes Jul, Varicose veins of un specified lower extremity with ulcer of unspecified site (ICD-10 - I83.009) Jul,Non-pressure chronic ulcer of unspecified part of unspecified lower leg with unspecified severity (ICD-10 - L97.909)Patient with 6 to 12-month history of nonhealing [...] to keep her sodium less than 2 g/day.She did have a similar lesion on her left distal lower extremity that has healed. Patient is using a barrier cream and keeping the area moist. At this point we will go ahead and refer to wound care for further management. Jul,tage 3b chronic kidney disease (ICD-10 - N18.32)Patient with history of CKD secondary to diabetes mellitus. We did recheck kidney function after increasing dose of Lasix. There was a slight bump in creatinine but overall remains relatively stable.We will probably go ahead and recheck it in 3 months. [employer] Other 03-15-2022 Evaluation note* Encounter Date Diagnosis Assessment Notes Treatment Notes Treatment Clinical Notes Jun, Acquired lymphedema of lower ext remity (ICD-10 - I89.0) [employer] Other 03-10-2022 Evaluation note* Encounter Date Diagnosis [...] not obtain lab work and chest x-ray. Jun,eripheral edema (ICD-10 - R60.9) Patient's Lasix was [...] edema including weight loss, compression stockings, keeping legselevated, and activity. [employer] Other 02-23-2022 Evaluation note* Encounter Date Diagnosis Assessment Notes Treatment Notes Treatment Clinical Notes May, Type 2 diabetes ahsan itus with diabetic chronic kidney disease (ICD- 10 - E11.22) [employer] Other 02-10-2022 Evaluation note* Encounter Date Diagnosis Assessment Notes Treatment Notes Treatment Clinical Notes May, Acquired lymphedema of lower ext remity (ICD-10 - I89.0) [employer] Other 02-10-2022 Evaluation note* Encounter Date Diagnosis Assessment Notes Treatment Notes Treatment Clinical Notes May, Type 2 diabetes ahsan itus with diabetic chronic kidney disease (ICD- 10 - E11.22) Initially looked at the patient's A1c and started on Ozempic. Her A1c is actually only 6.7% we willcontinue her on her current regimen. May,cquired lymphedema of lower extremity (ICD-10 - I89.0) Patient with history of lymphedema. Also has some chronic skin changes and some nonhealing ulceration on the right lower extremity. Patient has been seen by vascular surgery and does have some degreeof venous insufficiency although recommendation was for routine follow-up and no occasion for intervention. I will go ahead and increase her Lasix cautiously. She does have history of CKD. We will berechecking labs before her 1 month follow-up. May,Night sweats (ICD-10 - R61) Patient with a 1 week history of night sweats. I did explain that given the short duration this is likely of little concern but we will check a CBC. If it persists we will work-up further. Follow-up in 4 weeks. [employer] Other 02-02-2022 Evaluation note* Encounter Date Diagnosis Assessment Notes Treatment Notes Treatment Clinical Notes May, Unspecified vitamin D deficiency (ICD9-CM - 268.9) [employer] Other 01-19-2022 Evaluation note* Encounter Date Diagnosis Assessment Notes Treatment Notes Treatment Clinical Notes Apr, Venous insufficiency (chronic) ( peripheral) (ICD-10 - I87.2) Apr,Non-pressure chronic ulcer of other part of left [...] they are too uncomfortable. I advise she trywrapping her lower extremities. I recommend salt restriction also advise healthier diet as any weight loss would be beneficial. She has used lotions and creams but felt like they irritated her skin. I do recommend she try a gentle unscented cream or ointment such as CeraVe. She agrees to try these interventions and will follow-up following her next appointment with vascular surgery. [employer] Other 12-21-2021 Evaluation note* Encounter Date Diagnosis Assessment Notes Treatment Notes Treatment Clinical Notes Mar, Acquired hypothyroidism (ICD-10 - E03.9) Patient's levothyroxine dose was increased due to fatigue and borderline TSH. We will recheck at this time. Mar,Type 2 diabetes mellitus with diabetic chronic kidney disease (ICD- 10 - E11.22) Patient having blood sugar readings [...] she may increase it to 19 and thento 21 units if needed. If still having elevated blood sugar readings she should call the office. She will follow up in 6 weeks for repeat A1c. Mar,hronic kidney disease, stage 3 unspecified (ICD-10 - N18.30) Patient states she has not been using the Celebrex and doing okay. I advise she stop it altogether at this point. Mar,ong term (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 (ICD-10 - Z79.4) [employer] Other 12-09-2021 Evaluation note* Encounter Date Diagnosis Assessment Notes Treatment Notes Treatment Clinical Notes Mar, GERD (gastroesophageal reflux di sease) (ICD-10 - K21.9) [employer] Other 11-22-2021 Evaluation note* Encounter Date Diagnosis Assessment Notes Treatment Notes Treatment Clinical Notes Feb, Localized swelling of both lower legs (ICD-10 - R22.43) Feb,Other Swollen legs This patient likely has multifactorial edema which is due to her elevated body mass index along with her chronic obstructive pulmonary disease. We will look for an element of venous insufficiency that might contribute and so when she returns she will undergo full functional venous duplex examination. [employer] Other 11-17-2021 Evaluation note* Encounter Date Diagnosis Assessment Notes Treatment Notes Treatment Clinical Notes Feb, Encounter for screen ing mammogram for malignant neoplasm of breast (ICD-10 - Z12.31) [employer] Other Evaluation noteNo InformationNortThe [facility] Other Evaluation note* Diagnosis Onset Date Resolution Status Monoclonal gammopathy acuteDegenerative joint disease of cervical and lumbar spineacuteIron deficiency anemiaacuteBipolar disorder with depressionchronicCKD (chronic kidney disease) stage 3, GFR 30-59 ml/minchronicCOPD (chronic obstructive pulmonary disease) chronicDiabeteschronicMorbid obesitychronic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)chronic [facility] Work Phone: Evaluation noteNo assessment information available [facility] Work Phone: Evaluation note* Diagnosis Onset Date Resolution Status 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 acuteIron deficiency anemiaacuteBipolar disorder with depressionchronicCKD (chronic kidney disease) stage 3, GFR 30-59 ml/minchronicCOPD (chronic obstructive pulmonary disease)chronicDiabeteschronicMorbid obesitychronic 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 [facility] Work Phone: Evaluation note* Diagnosis Onset Date Resolution Status 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 acuteBipolar disorder with depressionchronicCKD (chronic kidney disease) stage 3, GFR 30-59 ml/minchronicCOPD (chronic obstructive pulmonary disease)chronic DiabeteschronicIron deficiency anemiachronicMorbid obesitychronic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)chronic [facility] Work Phone: Evaluation note* Diagnosis Onset Date Resolution Status Bipolar disorder with depression chronicCKD (chronic kidney disease) stage 3, GFR 30-59 ml/minchronicCOPD (chronic obstructive pulmonary disease)chronicDegenerative joint disease of cervical and lumbar spinechronicDiabeteschronicMorbid obesitychronic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)chronicIron deficiency anemiaresolvedDebilityacuteInflammationacuteIrritable bowel disease acuteOn home oxygen therapyacutePeripheral edemaacuteUlcer of left lower leg acuteUlcer of right lower legacuteCKD (chronic kidney disease) stage 3, GFR 30- 59 ml/minchronicCOPD (chronic obstructive pulmonary disease)chronicDiabetes chronicMorbid obesitychronicOSA (obstructive sleep apnea)chronicVenous stasis dermatitis of both lower extremitiesresolved [facility] Work Phone: Evaluation note* Diagnosis Diabetes mellitus due to underlying condition with diabetic polyneuropathy, with long-term current use of insulin ([facility]) [facility] Diagnosis Onset Date Resolution Status Bipolar disorder with depression chronicCKD (chronic kidney disease) stage 3, GFR 30-59 ml/minchronicCOPD (chronic obstructive pulmonary disease)chronicDegenerative joint disease of cervical and lumbar spinechronicDiabeteschronicMorbid obesitychronic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)chronicIron deficiency anemiaresolvedDebilityacuteInflammationacuteIrritable bowel disease acuteOn home oxygen therapyacutePeripheral edemaacuteUlcer of left lower leg acuteUlcer of right lower legacuteVenous refluxacuteCKD (chronic kidney disease) stage 3, GFR 30-59 ml/minchronicCOPD (chronic obstructive pulmonary disease) chronicDiabeteschronicMorbid obesitychronicOSA (obstructive sleep apnea)chronic Venous stasis dermatitis of both lower extremitiesresolvedSymptomatic varicose veins of both lower extremitiesacuteVenous refluxacute [facility] Work Phone: Evaluation note* Diagnosis Onset Date Resolution Status Debility acuteInflammationacuteIrritable bowel diseaseacuteOn home oxygen therapyacute Peripheral edemaacuteUlcer of left lower legacuteUlcer of right lower legacute Venous refluxacuteCKD (chronic kidney disease) stage 3, GFR 30-59 ml/minchronic COPD (chronic obstructive pulmonary disease)chronicDiabeteschronicMorbid obesity chronicOSA (obstructive sleep apnea)chronicVenous stasis dermatitis of both lower extremitiesresolvedSymptomatic varicose veins of both lower extremities acuteVenous refluxacute [facility] Work Phone: Evaluation note* Diagnosis Onset Date Resolution Status Debility acuteInflammationacuteIrritable bowel diseaseacuteOn home oxygen therapyacute Peripheral edemaacuteUlcer of left lower legacuteUlcer of right lower legacute Venous refluxacuteCKD (chronic kidney disease) stage 3, GFR 30-59 ml/minchronic COPD (chronic obstructive pulmonary disease)chronicDiabeteschronicMorbid obesity chronicOSA (obstructive sleep apnea)chronicVenous stasis dermatitis of both lower extremitiesresolvedSymptomatic varicose veins of both lower extremities acuteVenous refluxacuteSymptomatic varicose veins of both lower extremitiesacute [facility] Work Phone: Evaluation note* Diagnosis Onset Date Resolution Status Debility acuteInflammationacuteIrritable bowel diseaseacuteOn home oxygen therapyacute Peripheral edemaacuteUlcer of left lower legacuteUlcer of right lower legacute Venous refluxacuteCKD (chronic kidney disease) stage 3, GFR 30-59 ml/minchronic COPD (chronic obstructive pulmonary disease)chronicDiabeteschronicMorbid obesity chronicOSA (obstructive sleep apnea)chronicVenous stasis dermatitis of both lower extremitiesresolvedSymptomatic varicose veins of both lower extremities acuteVenous refluxacuteSymptomatic varicose veins of both lower extremitiesacute Hypothyroidismacute [facility] Work Phone: Evaluation note* Diagnosis Onset Date Resolution Status Symptomatic varicose veins of both lower extremities acuteVenous refluxacuteSymptomatic varicose veins of both lower extremitiesacute HypothyroidismacuteMorbid obesity with BMI of 45.0-49.9, adultacuteWound of left lower extremityacute [facility] Work Phone: Evaluation note* Diagnosis Onset Date Resolution Status Symptomatic varicose veins of both lower extremities acuteHypothyroidismacuteMorbid obesity with BMI of 45.0-49.9, adultacuteWound of left lower extremityacuteCKD (chronic kidney disease) stage 3, GFR 30-59 ml/min chronicCOPD (chronic obstructive pulmonary disease)chronicDegenerative joint disease of cervical and lumbar spinechronic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)chronicIron deficiency anemiaresolved Pruritic erythematous rashacuteVenous stasis dermatitis of both lower extremitiesresolved [facility] Work Phone: Evaluation note* Diagnosis Diabetes mellitus due to underlying condition with diabetic polyneuropathy, with long-term current use of insulin ([facility]) [facility]* Diagnosis Chronic obstructive pulmonary disease, unspecified COPD type ([facility])- Primary Obstructive sleep apnea syndrome Obstructive sleep apnea (adult) (pediatric) documented in this encounter [facility]Evaluation [facility]* Diagnosis Type 2 diabetes mellitus with hyperglycemia, with long-term current use of insulin ([facility])- Primary Vitamin D deficiency Primary hypertension ([facility]) Unspecified essential hypertension Hyperlipemia, mixed ([facility]) Mixed hyperlipidemia Insulin long-term use ([facility]) Encounter for long-term (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 Encounter for dietary consultation Stage 3b chronic kidney disease (HCC) ([facility]) Class 3 severe obesity due to excess calories with serious comorbidity and body mass index (BMI) of45.0 to 49.9 in adult ([facility]) documented in this encounter [facility]* Diagnosis Diabetes mellitus due to underlying condition with diabetic polyneuropathy, with long-term current use of insulin ([facility])- Primary Pain due to onychomycosis of toenails of both feet [facility]* Diagnosis Onset Date Resolution Status CKD (chronic kidney disease) stage 3, GF R 30-59 ml/min chronicCOPD (chronic obstructive pulmonary disease)chronicDegenerative joint disease of cervical and lumbar spinechronic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)chronicIron deficiency anemiaresolved Encounter for initial annual wellness visit in Medicare patientnoneactive [facility] Work Phone: Evaluation note* Diagnosis Type 2 diabetes mellitus with hyperglycemia ([facility]/HCC) [facility]* Diagnosis Xerosis cutis- Primary Other specified disease of sebaceous glands Diabetes mellitus due to underlying condition with diabetic polyneuropathy, with long-term current use of insulin ([facility]) Pain due to onychomycosis of toenails of both feet [facility]* Diagnosis Type 2 diabetes mellitus with hyperglycemia, with long-term current use of insulin ([facility])- Primary Vitamin D deficiency Primary hypertension (CMS/HCC) Unspecified essential hypertension Hyperlipemia, mixed (CMS/HCC) Mixed hyperlipidemia Insulin long-term use ([facility]) Encounter for long-term (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 Encounter for dietary consultation Stage 3b chronic kidney disease (HCC) ([facility]/HCC) Class 3 severe obesity due to excess calories with serious comorbidity and body mass index (BMI) of45.0 to 49.9 in adult ([facility]) Type 2 diabetes mellitus with hyperglycemia ([facility]/HCC) [facility]* Diagnosis Chronic obstructive pulmonary disease, unspecified COPD type ([facility]/HCC) [facility]* Diagnosis Type 2 diabetes mellitus with hyperglycemia, with long-term current use of insulin ([facility])- Primary Vitamin D deficiency Primary hypertension (CMS/HCC) Unspecified essential hypertension Hyperlipemia, mixed (CMS/HCC) Mixed hyperlipidemia Insulin long-term use ([facility]/HCC) Encounter for long-term (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 Encounter for dietary consultation Stage 3b chronic kidney disease (HCC) (CMS/HCC) Class 3 severe obesity due to excess calories with serious comorbidity and body mass index (BMI) of45.0 to 49.9 in adult Type 2 diabetes mellitus with hyperglycemia ([facility]) documented in this encounter [facility]* Diagnosis Chronic obstructive pulmonary disease, unspecified COPD type ([facility])- Primary Obstructive sleep apnea syndrome Obstructive sleep apnea (adult) (pediatric) documented in this encounter [facility]* Diagnosis Diabetes mellitus due to underlying condition with diabetic polyneuropathy, with long-term current use of insulin ([facility])- Primary Pain due to onychomycosis of toenails of both feet Xerosis cutis Other specified disease of sebaceous glands documented in this encounter [facility]Evaluation [facility]* Diagnosis Vitamin D deficiency- Primary Type 2 diabetes mellitus with hyperglycemia, with long-term current use of insulin ([facility]) Primary hypertension Unspecified essential hypertension Hyperlipemia, mixed Mixed hyperlipidemia Insulin long-term use ([facility]) Encounter for long-term (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 Encounter for dietary consultation Stage 3b chronic kidney disease ([facility]) documented in this encounter [facility]Evaluation [facility]* Diagnosis Type 2 diabetes mellitus with hyperglycemia, with long-term current use of insulin ([facility]) documented in this encounter [facility] HealthcareEvaluation note* Diagnosis Diabetes mellitus due to underlying condition with diabetic polyneuropathy, with long-term current use of insulin ([facility])- Primary Pain due to onychomycosis of toenails of both feet Xerosis cutis Other specified disease of sebaceous glands documented in this encounter [facility] HealthcareHistory general Narrative - Reported* Type Description Date Medical History asthma Medical Historydiabetes mellitus IIMedical Historysleep apneaMedical History HypertensionMedical Historyspinal stenosisMedical HistoryCOPDMedical HistoryGERD Medical HistoryanxietySurgical Historyright and left Foot Surgery06/2012Surgical [id number] [id number] HistoryC section x 4Hospitalization Historysee aboveHospitalization Historychild x 4[facility] Other History general N[facility]ative - [facility]orted[facility] Other History general Narrative - Reported* Type Description Date Medical History asthma Medical Historydiabetes mellitus IIMedical Historysleep apneaMedical History HypertensionMedical Historyspinal stenosisMedical HistoryCOPDMedical HistoryGERD Medical HistoryanxietyMedical HistoryanemiaMedical HistoryArthritisMedical HistorycataractsMedical HistoryGoutMedical Historykidney diseaseMedical History obesityMedical Historychronic depressionMedical Historythyroid diseaseMedical HistoryulcersSurgical Historyright and left Foot Surgery06/2012Surgical History [id number] [id number] HistoryC section x 4 Hospitalization Historysee aboveHospitalization Historychild x 4 [facility] Discharge instructions Additional Instructions POST [...] worsening of your eyesight. Please call your accountant helper during normal business hours. If after business hours call Dr. Nik Pineda at his cell [phone] or his office [phone].[facility] Work Phone: Hospital Discharge instructions Additional Instructions Monitor glucose levels as before Continue oxygen as per chronic orders Dietitian recommendations: *Glucerna, 1 container, twice daily with mealsRegency Hospital [facility] Work Phone: Progress note Author Raymundo Galicia [facility] April 23, 2022 12:40pmNote Date/TimeJan2022 11:14[facility] [place] [address] Hem/Onc Follow Up Note - OP Signed Patient: Kelsea Turcios MR#: [id number] : 1960 Acct:[id number] Age/Sex: 61 / F Type: REG RCR Copies to: MD Brenden Manzo DO Kevin T Carnahan, D.Philip~ Subjective Date/Time of Service: Date of Service: [...] overall with slightly increased K/L ratio. We willorder imaging on her lower back/hip area to [...] about 4 weeks ago. She did not haveany monoclonality noted on urinalysis but does have a mildly elevated kappa/lambda light chain ratio. The patient was given the option of surveillance with every 3-month monoclonal gammopathy labs versus bonemarrow biopsy to determine if she has presence of amyloidosis or other plasma cell dyscrasia. Patient notes that she has been suffering with polyneuropathy and would like to proceed with bonemarrow biopsy for further evaluation. Due to her [...] a creatinine of 1.64 correlating to EGFR, lzo-Eyftpzv-Shlefker 32. This has not significantly changed over the last year but is lower than prior labs from 1432-0004. Most recent calcium within normal limits and we do not have recent imaging other than her MRIswhich have not shown any bony lytic lesions. [...] & no additional complaints except as documented [facility] - Medical History Medical History: Medical [...] distant breath sounds. No audible wheezing, rales, rhonchior rubs. Normal effort. CARDIOVASCULAR: Regular rate and [...] 3.4, Globulin (PEP) 3.9, Albumin/Globulin (PEP) 0.9, Wmiwq-3-Jigpcaqrv 0.3, Dnbag-4-Ewhzyfoib 0.9, Beta Globulins 1.4 H, Gamma Globulins 1.3, M-Damien 0.4 H, PEP Note , IgG 1443, IgA 625 H, IgM 98, Free Willington LC, Quant 162.6 H, Free Lambda LC, Quant 44.5 H, Free [place]/Lambda Ratio 3.65 H 04/17/22 10:05: PHA Creatinine Clear 51.63, Sodium 138, Potassium 3.5, Chloride 98, Carbon Dioxide 30.7 H, Anion Gap 12.8, BUN 17, Creatinine 1.26 H, Est GFR ( Amer) 52, Est GFR (Non-Af Amer) 43, Glucose 269 H, Calcium 9.1, Iron 53, TIBC 346, Iron Saturation 15.3 L, Transferrin 247, Pndrcmwt24.6, Total Bilirubin 0.3, AST 23, ALT 22, Alkaline Phosphatase 121 H, Total Protein 7.0, Albumin 3.2, Globulin 3.8, Albumin/Globulin Ratio 0.8 04/17/22 10:05: Corrected WBC 10.8, Uncorrected WBC Count 10.8, RBC 4.02, Hgb 11.2 L, Hct 35.4, MCV88.1, MCH 27.9, MCHC 31.6 L, RDW 15.7 H, Plt Count 273, MPV 7.6, Neut % (Auto) 61.2, Lymph % (Auto)24.5, [place] % (Auto) 7.9, Eos % (Auto) 5.9, Baso % (Auto) 0.5, Nucleat RBC Rel Count 0.2, Neut # (Auto) 6.6, Lymph # (Auto) 2.6, [place] # (Auto) 0.8, Eos # (Auto) 0.6 H, Baso # (Auto) 0.1 Assessment and Plan (1) 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 She has mild anemia with most recent hemoglobin 11.6, elevated erythrocyte sedimentation rate of 65, most recent renal function panel showed a creatinine of 1.64 correlating to EGFR, ivs-Xeduyiw-Aepswxqu 32. This has not significantly changed over the last year but is lower than prior labs from 2904-6846. Most recent calcium within normal limits and we do not have recent imagingother than her MRIs which have not shown [...] monoclonality, and kappa/lambdalight chain analysis with mild elevationof ratio. In addition she was noted tohave [...] light chain analysis. We will also repeat CBC,CMP, and Serum iron profile/ferritin level 10. Moderate [...] in 3 months, sooner as needed. She isin agreement with this plan and has no [...] 2 Diabetes mellitus complication status: with neurologic complicationsDiabetes mellitus complication detail: with polyneuropathy (6) Degenerative [...] for coordination of care (as documented) and xfdm-yw-zmff counseling of patient and/or family. Dictated By: Raymundo Galicia APRN DD/ 1114 Signed By: <Electronically signed by LUCI Galicia> 04/23/22 1240 [facility] Work Phone: Progress note Author Erica Diehl [facility] May 12, 2023 8:28amNote Date/TimeJanuary 2023 8:28[place] [address] Wound Center Provider Note Signed Patient: Kelsea Turcios MR#: [id number] : 1960 Acct:[id number] Age/Sex: 62 / F Copies to: DO Erica Miranda, LUCI~ HPI Date of Visit Date of Visit: Date of Service: 05/12/2023 Time of Service: 08:22 Narrative HPI: 04/28/23 Kelsea is a 62-year-old female [facility] programfor an initial visit for evaluation and treatment of bilateral lower extremity ulcerations that do appear to be venous in nature but also have a concern for some sort of an autoimmune condition like vasculitis. She doeshave irritable bowel listed in her diagnoses but she in unaware if she has crohns or UC. I seethat she did have a PVR done in late 2022 and this does show normal arterial blood flow. She also had a venous duplex done in early 2022 and it did show reflux at that time and I do want to redo this studyto see if this has changed at all. I did tell Kelsea that I would like her to see a braille typist, especially if the venous studies do not per se indicate venous issues. She did state understanding ofthis. I did discuss with her an anti-inflammatory [...] the lle and a continuous flow in therle, we did send that referral yesterday and she needs tocall them back today to schedule, is awareto call us if she develops the ulcersagain [...] for the past year Mode of Arrival/ Head Nurse: Personal vehicle Lives with:: Spouse Appetite Description: Within Normal Limits Smoking Status: Never smoker [facility] Medical History (Updated 05/12/23 @ 08:27 [...] 2 Diabetes mellitus complication status: with neurologic complicationsDiabetes mellitus complication detail: with polyneuropathy Code(s): E11.9 [...] By: <Electronically signed by LUCI Diehl> 05/12/23827 [facility] Work Phone: Progress note Author Roxane Bills [facility] September 02, 2023 9:51pmNote Date/TimeMay 2023 10:15[facility] [place] [address] Cancer Center Note Signed Patient: Kelsea Turcios MR#: [id number] : 1960 Acct:[id number] Age/Sex: 62 / F Type: DEP AMB Date of Service: 09/02/23 Copies to: Peri Tyson, DO~ Assessment & Plan A/P (1) 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 She has mild anemia with most recent hemoglobin 11.6, elevated erythrocyte sedimentation rate of 65, most recent renal function panel showed a creatinine of 1.64 correlating to EGFR, ptq-Anwaufq-Twmsojts 32. This has not significantly changed over the last year but is lower than prior labs from 1698-2021. Most recent calcium within normal limits and we do not have recent imagingother than her MRIs which have not shown [...] monoclonality, and kappa/lambdalight chain analysis with mild elevationof ratio. In addition she was noted tohave [...] light chain analysis. We will also repeat CBC,CMP, and Serum iron profile/ferritin level 10. Moderate [...] in 3 months, sooner as needed. She isin agreement with this plan and has no [...] complexity 35-minute follow-up for complex medical testing. 03/04/2023: Stable pain symptoms. No progression from MGUS on 02/12/2023 bone marrow biopsy (2-5% plasma cells, FISH with 10% 13q deletion/monosomy 13, normalcytogenetics). Skeletal survey without newbone lesions. I recommended orthopedic surgery evaluation for back and hip pain. Continue followup with peripheral neuropathy with neurology. Next followup with MGUS labs (CBC, CMP, free kappa/lambdalight chains and immunoglobulins IgG/IgA/IgM with serum protein electrophoresis) in 6 months, sooner if new symptoms arise. Moderate complexity 30 minute followup to review complex testing/bone marrow biopsy results. 09/01/2022: Kelsea is here for 6-month follow-up of MGUS. No change in chronic neuropathy that may bemore related to diabetes mellitus. We performed bone [...] to review complex medical testing, symptoms, and co morbidities. (2) Pruritic erythematous rash: Plan: The patient's primary concern today is a pruritic erythematous rash over the past month that has not resolved. She has multiple areas of excoriation when this has not responded to topical triamcinolone cream. In addition we reviewed her medication list and she is supposed to be taking hydroxyzine 10 mg daily 8 hours but she is unsure if she is taking this medicine. I am sending a dermatology consult for further evaluation. (3) Venous stasis dermatitis of both lower extremities: Plan: The patient has nodular erythematous areas over the bilateral anterior shins that she was told by her primary care may be venous insufficiency changes. Given her multiple medical issues, this may be erythema nodosum and I am asking the opinion of dermatology, possible biopsy if indicated when she sees him for the pruritic rash. Continue follow-up with primary care. (4) Hypertension: Plan: She had significantly elevated blood pressure at triage and she seemed unfamiliar with her outpatient medications. She has listed both amlodipine withquestionable dose and clonidine 0.1 mg twice daily. I asked her to review her home medications and contact primary care regarding her elevated blood p ressures. (5) Diabetic neuropathy associated with diabetes mellitus due to underlying condition: Plan: She has known diabetes and notes that blood sugars have been under stable control. This also may bethe etiology of her neuropathy since bone marrow biopsy did not show progression to myeloma. Continue follow-up with primary care. (6) Degenerative joint disease of cervical and lumbar spine: Plan: At last visit she noted worsening hip and pelvic pain which have since stabilized. She had a prior lumbar MRI negative for myelomatous lesions. Most recent bone marrow biopsy and skeletal survey 6 months ago did not show any concerning lytic lesions. She was referred for orthopedic evaluation. We will repeat her skeletal survey in 6 months. (7) History of iron deficiency anemia: Plan: 04/23/2022: No improvement in symptoms or iron [...] marrow biopsy. Continue same recommendations as above. 09/01/2022: Absent iron stores on bone marrow biopsy with iron saturation low at15%. Given her chronic kidney disease and neuropathy we added ferrous sulfate 1tablet daily. Currently iron saturation is stable at 16% and she is no longer taking oral iron. Will defer to nephrology (8) CKD (chronic kidney disease) stage 3, GFR 30-59 ml/min: Plan: Chronic stable CKD stage IIIb. Elevated beta-2 microglobulin is likely due to her chronic kidney disease. (9) COPD (chronic obstructive pulmonary disease): Plan: Chronic O2 dependence, currently 4 L nasal cannula. No recent infections or clinical changes. (10) Morbid obesity with BMI of 45.0-49.9, adult: Plan: Morbid obesity, continue follow-up with primary physician. (11) Bipolar 1 disorder: Plan: No recent mental health issues on current medications. Orders: Orders Comprehensive Metabolic Panel 6 Months D47.2 - Monoclonal gammopathy, D50.9 - Iron deficiency anemia, unspecified Ferritin 6 Months D47.2 - Monoclonal gammopathy, D50.9 - Iron deficiency anemia,unspecified Protein Electrophoresis, Serum 6 Months D47.2 - Monoclonal gammopathy, D50.9 - Iron deficiency anemia, unspecified Immunoglobulin G 6 Months D47.2 - Monoclonal gammopathy, D50.9 - Iron deficiencyanemia, unspecified Immunoglobulin A, Serum 6 Months D47.2 - Monoclonal gammopathy, D50.9 - Iron deficiency anemia, unspecified Immunoglobulin M, Serum 6 Months D47.2 - Monoclonal gammopathy, D50.9 - Iron deficiency anemia, unspecified XR bone survey 5 Months D47.2 - Monoclonal gammopathy Complete Blood Count Auto Diff 6 Months D47.2 - Monoclonal gammopathy, D50.9 - Iron deficiency anemia, unspecified Iron and TIBC Profile 6 Months D47.2 - Monoclonal gammopathy, D50.9 - Iron deficiency anemia, unspecified Immunofixation,Serum 6 Months D47.2 - Monoclonal gammopathy, D50.9 - Iron deficiency anemia, unspecified Free K+L LT Chains, Qn, S 6 Months D47.2 - Monoclonal gammopathy, D50.9 - Iron deficiency anemia, unspecified Referrals Referral to Dermatology I87.2 - Venous insufficiency (chronic) (peripheral), L29.8 - Other pruritus Patient Instructions: Skeletal survey in January, Follow-up in 6months with MGUS labs. Dermatology consult. CHEMO PLAN Treatment Plan Iron Sucrose (Venofer) Clinical Indication No Indication Cycle Number Last Admin 1 of 1 Completed Cycle Day Next Admin No Active Chemotherapy History of Present Illness HPI 09/02/2023: Kelsea is here for follow-up of monoclonal gammopathy of undetermined significance. No significant changes in medical history since last visit other than a diffuse pruritic rash over her extremities as well as erythematous lesions over the anterior shins that were attributed to her peripheral vascular disease by her primary care physician. She denies any new bone pain and has persistentneuropathy that is likely more associated with her diabetes mellitus. Laboratories reveal a normal hemoglobin, relatively stable creatinine 1.41 withEGFR 41.65, normal calcium 9.1. Serum iron is 57 with iron saturation 16.1 and ferritin 111.9. M spike is mildly increased to 0.8, stable IgG 1722, IgA 604, IgM 94. Willington/lambda light chain analysis was not reported. Since she did not have evidence of active myeloma on bone marrow biopsy 6 months ago, anemia, worsening renal function or hypercalcemia and no new symptoms, I recommend continuing every 6-month follow-up with MGUS labs (CBC, CMP, free kappa/lambda light chains and immunoglobulins IgG/IgA/IgM with serum protein electrophoresis). Naomi also be due for annual bone osseous survey prior to her next follow-up. We will send dermatology referral today for evaluation of her pruritic rash. She may return sooner if new issues arise. Moderate complexity 35-minute follow-up to review complex medical testing and evaluate her new rash. 03/04/2023: Kelsea is here for results of bone marrow biopsy performed in IR 02/12/2023 for rising serum IgG and kappa/lambda light chain ratio. This revealed normal cellularity for age (40-50%) and clonal plasma cells 2-5% by morphology, 0.5% by flow cytometry. Myeloma FISH showed 10% 13q or monosomy 13 which is standard risk in setting of myeloma. Normal cytogenetics. Trace iron stores. This still meets criteria for MGUS and there is no indication for active therapy at this time. I do not recommend PET/CT for further workup. Hemoglobin is normal at 12.8 with normal iron saturation and ferritin in early January. Defer next followup with MGUS labs (CBC, CMP, free kappa/lambda light chains and immunoglobulins IgG/IgA/IgM with serum protein electrophoresis) to 6 months, sooner if new symptomsarise. Moderate complexity 30 minute followup toreview complex testing/bone marrow biopsy results. 01/29/2023: Kelsea is here for 6-month follow-up of iron deficiency anemia and monoclonal gammopathyof undetermined significance with possible associated neuropathy. No [...] involving the pelvis. She recently has had inc reased pain medication with hydrocodone acetaminophen to 3 times daily for pain. She remains on gabapentin 300 mg 3 times daily for her chronic neuropathy. No change in bowel movements with chronic diarrhea. Her laboratories showed normal hemoglobin 12.3 with creatinine 1.37 which is improved from prior chemistry profiles. Calcium is normal at 8.6. Iron saturation is stable at 23.8% with ferritinnormal at 192.2. Serum protein electrophoresis did not [...] kappa/lambda lightchain ratio but no evidence of amyloidosisor plasma cell dyscrasia on bone marrow biopsy 09/26/2021. She did not note any significant improvement of fatigue with iron infusions, however she did have improvement of her iron saturation from 15%to 23 with normal ferritin to 84. Hemoglobin which was mildly decreased at 11.2 is now up to 12.1. Monoclonal gammopathy labs show M spike 0.5 (previously 0.4), stable kappa/lambda light chain ratio of 3.66, stable IgA 656. No indication for bone marrow biopsy or further work-up of her monoclonal ga mmopathy of undetermined significance. She had unremarkable skeletal [...] overall with slightly increased K/L ratio. We willorder imaging on her lower back/hip area to [...] about 4 weeks ago. She did not haveany monoclonality noted on urinalysis but does have a mildly elevated kappa/lambda light chain ratio. The patient was given the option of surveillance with every 3-month monoclonal gammopathy labs versus bone marrow biopsy to determine if she has presence of amyloidosis or other plasma cell dyscrasia. Patient notes that she has been suffering with polyneuropathy and would like to proceed with bone marrow biopsy for further evaluation. Due to her BMI 48, I recommended interventional radiology toperform image guided bone marrow aspiration and biopsy [...] was significantly worse. She had an MRI ofthe lumbar spine without contrast on 09/14/2020 showing [...] work-up with serum protein electrophoresis on 07/02/2021 showinga monoclonal spike of 0.4 g/dL (no prior labs for comparison). Serum immunofixation showed a monoclonal protein with kappa light chain specificity however quantitative immunoglobulin showed anelevation of IgA at 508 with normal IgG 1134 and IgM 79. She had an antineutrophil antibody screen that wasnegative and rheumatoid factor was less than10. She reports chronic fatigue, progressive increase in weight and she is noted to have a BMI of 49. She has mild anemia with most recent hemoglobin 11.6, elevated erythrocyte sedimentation rate of 65, most recent renal function panel showed a creatinine of 1.64 correlating to EGFR, pvk-Wmoelhh-Eurtckja 32. This has not significantly changed over the last year but is lower than prior labs from 7891-7653. Most recent calcium within normal limits and we do not have recent imaging other than her MRIswhich have not shown any bony lytic lesions. [...] COPD with oxygen dependence past 8 years Summary of Therapies Summary of Therapies: 1. MGUS, no plasma cell neoplasm or amyloidosis, followed by neurology, bone marrow biopsy 09/26/2021 2. Neuropathy unclear etiology 3. Absent iron stores on bone marrow biopsy with iron saturation 15%, started oral iron 10/23/2020 -- Venofer infusions due to persistent fatigue and low iron saturation 300 mg x 3 doses (05/02-05/12/2022) Intake Vitals/Pain Assessment 09/02/23 10:17 Weight 112.491 kg BP 193/76 H Blood Pressure Location Lt brachial Position Sitting Temp 97.9 F Temp Source Temporal Pulse 51 L Pulse Source NIBP Respiration 16 Pulse Oximetry (%) 96 Oxygen Delivery Method nasal canula Oxygen Flow Rate 4 Intake Visit Reasons: follow up visit Allergies codeine Allergy (Unknown, Verified 09/02/23 10:20) Rash, itching honey Allergy (Unknown, Verified 09/02/23 10:20) Hives, anaphylaxis morphine Allergy (Unknown, Verified 09/02/23 10:20) Gastrointestinal Upset tramadol Allergy (Unknown, Verified 09/02/23 10:20) Hallucinating, hallucinations - Last Reconciled 09/02/23 by Alyssa Car albuterol sulfate 90 mcg/actuation (ProAir HFA) 1 puff inhalation Q4H PRN amitriptyline 10 mg PO QAM amlodipine TAKE 1 TABLET BY MOUTH EVERY DAY FOR 90 DAYS asenapine maleate 5 mg sublingual QHS aspirin 81 mg PO DAILY benzonatate TAKE 1 CAPSULE BY MOUTH THREE TIMES A DAY NEEDED FOR 5 DAYS brexpiprazole 3 mg PO DAILY budesonide-formoterol 160-4.5 mcg/actuation (Symbicort) 2 puffs inhalation BID carboxymethylcellulose sodium (Refresh Tears) ophthalmic (eye) carboxymethylcellulose sodium 0.5% (Refresh Tears) 2 drps Eye-Both BID PRN carvedilol 25 mg PO BID cholecalciferol (vitamin D3) 1 cap PO BID clonidine HCl 0.1 mg PO BID colestipol 2 grams PO DAILY comp.stocking,thigh,long,large As directed comp.stocking,thigh,long,large 20-30 COMPRESSION ,WEAR DAILY, 30 DAYS cyclobenzaprine 10 mg PO HS dapagliflozin propanediol (Farxiga) 5 mg PO QAM dicyclomine 20 mg PO QID duloxetine 60 mg PO DAILY ferrous sulfate 325 mg PO DAILY fluticasone propionate 50 mcg/actuation 1 spray intranasal DAILY furosemide 40 mg PO DAILY gabapentin 300 mg PO DAILY hydrocodone-acetaminophen 5-325 mg 5 mg PO TID PRN hydroxyzine HCl 10 mg PO TID insulin glargine (Basaglar KwikPen U-100 Insulin) 40 units subcut QHS insulin lispro-aabc (Lyumjev KwikPen U-100 Insulin) 30 units subcut TID.AC ipratropium-albuterol 0.5 mg-3 mg(2.5 mg base)/3 mL 3 mL inhalation Q6H PRN levomilnacipran ER (Fetzima) 120 mg PO QAM levothyroxine 50 mcg PO QAM loperamide (Imodium A-D) 1 tab PO QID magnesium oxide 400 mg PO DAILY mirtazapine (Remeron) 30 mg PO QHS montelukast 1 tab PO QHS olopatadine 0.1% FreeTextSig: INSTILL 1 DROP INTO AFFECTED EYE TWICE A DAY FOR 30 DAYS; Note: Source Status: Start; Refills: 5; Qty: 15 Milliliter; Provider: Marbella Whitt ( ) omeprazole TAKE 1 CAPSULE BY MOUTH EVERY DAY 30 MINUTES BEFORE MORNING MEAL FOR 90 DAYS oxybutynin chloride ER 10 mg PO QAM pioglitazone-metformin 15-850 mg 1 tab PO BID vit-iron fum-folic ac ( Vitamin) PO sucralfate 1 g PO TID theophylline ER 200 mg PO DAILY tizanidine (Zanaflex) 4 mg PO BID triamcinolone acetonide 0.1% 1 applic topical BID 2 weeks zonisamide 50 mg PO BID Gastrointestinal Is the patient taking opioids for pain control?: No Bowel Pattern: Regular Falls Fall Precaution Measures Taken: Patient in chair Nurse's Note: Patient is here today for a 6 month follow up visit and go over labs for MGUS [facility] Medical History Medical History (Updated 09/02/23 @ 15:07 by Roxane Bills MD) Acute hyperkalemia Hyperkalemia Hallucinations, visual Epigastric pain Bipolar disorder with depression Chronic depression Morbid obesity Acute metabolic encephalopathy Diabetes Hypomagnesemia Elevated troponin Rhabdomyolysis PETER (acute kidney injury) UTI (urinary tract infection) Dehydration Ulcer of right lower leg Ulcer of left lower leg Inflammation Obesity Stage 3b chronic kidney disease Sciatica of left side Sacroiliitis Peptic ulcer disease Lumbago with sciatica, left side Kidney disease Gout Claudication of both lower extremities Anemia Acquired lymphedema of lower extremity Spinal stenosis Sleep apnea TANYA (obstructive sleep apnea) Neuropathy Hypertension GERD (gastroesophageal reflux disease) Asthma Arthritis Anxiety Venous insufficiency PTSD (post-traumatic stress disorder) Depression Neuropathy Arthritis History of cataract bilateral CKD (chronic kidney disease), stage IV Irritable bowel disease Wound of right leg Anxiety COPD (chronic obstructive pulmonary disease) Spinal stenosis Hypertension On home oxygen therapy 4-5 L nasal cannula Sleep apnea cpap Asthma Nausea Diarrhea GERD (gastroesophageal reflux disease) Abdominal pain Diabetes Surgical History Surgical History S/P sclerotherapy of varicose veins venaseal lt leg 2023 H/O cataract extraction right H/O: section x 4 Hx of cholecystectomy History of hysterectomy H/O foot surgery bilateral Family History Family History Son Hypertension Sister Hypertension Colon polyp Grandparent Malignant neoplasm of breast Grandparent Leukemia Brother Diabetes Brother Diabetes Legacy FamHx Relation: Brother(s) Hypertension Legacy FamHx Relation: Brother(s) Brother Hypertension Legacy FamHx Relation: Brother(s) Father Family/Other Legacy FamHx Problem: father, --natural causes:mother, --alcoholism:1 brother, --complications from covid:1 son, --ATV accident Grandparent Cancer Legacy FamHx Relation: Maternal Grand Father; Legacy FamHx Problem: Diag nosed with Cancer Leukemia Legacy FamHx Relation: Maternal Grand Father Grandparent Malignant neoplasm of breast Legacy FamHx Relation: Maternal Grand Mother Mother Son Hypertension Diabetes Sister Diabetes Hypertension Sister Hypertension Social History Social History Smoking status: Never smoker In the past 12 months, have you used illegal drugs or prescription drugs for non-medical reasons?: No 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 HEAD AND NECK: Negative for changes in hearing and vision. Negative for mouth ulcers, nasal congestion and nasal drainage. Denies any recent infectious illnesses. PULMONARY: Negative for chest pain, stable chronic cough and dyspnea. Chronic oxygen dependence dueto COPD. CARDIOVASCULAR: Negative for claudication and irregular [...] Negative for environmental allergies and food allergies. Physical Exam EXAM ECOG PS 2, Pain 0/10 CONSTITUTIONAL: The patient is in no acute distress. Morbidly obese. HEAD / FACE: Normocephalic. RESPIRATORY: Normal to inspection. Lungs distant breath sounds. No audible wheezing, rales, rhonchior rubs. Normal effort. Supplemental oxygen in place 4L nasal cannula. CARDIOVASCULAR: Regular rate and rhythm. No murmurs, gallops, or rubs. ABDOMEN: Bowel sounds normoactive. Soft, nontender and non-distended. No hepatosplenomegaly. No masses noted. INTEGUMENTARY: The skin is remarkable for multiple areas of excoriation over theupper extremities, bilateral shins with erythematous nodules (? E nodosum) versus venous insufficiency changes. No suspicious lesions for malignancy. MUSCULOSKELETAL: Normal musculature, no joint deformities or abnormalities, normal range of motion for all four extremities. EXTREMITIES: No edema, cyanosis or clubbing. NEUROLOGICAL: Alert and oriented. Cranial nerves intact. No gross motor deficits. Positive bilateral numbness distal to knees. PSYCHIATRIC: No anxiety or evidence of depression. [facility] RESULTS Corrected WBC 11.3 X10E3/uL (3.8-11.6) 08/24/23 12:34 Hgb 13.1 g/dL (11.8-15.4) 08/24/23 12:34 Hct 40.0 % (34.0-46.4) 08/24/23 12:34 MCV 89.1 fl (80-100) 08/24/23 12:34 RDW 14.4 % (11.9-15.3) 08/24/23 12:34 Plt Count 320 x10E3/uL (150-450) 08/24/23 12:34 Sodium 142 mmol/L (136-145) 08/24/23 12:34 Potassium 4.2 mmol/L (3.5-5.1) 08/24/23 12:34 BUN 21 mg/dL (7-25) 08/24/23 12:34 Creatinine 1.41 mg/dL (0.60-1.20) H 08/24/23 12:34 Glucose 86 mg/dL (70-100) 08/24/23 12:34 Est GFR (CKD-EPI) 41.654 mL/Min 08/24/23 12:34 Calcium 9.1 mg/dL (8.6-10.3) 08/24/23 12:34 Total Bilirubin 0.3 mg/dl (0.3-1.0) 08/24/23 12:34 AST 20 U/L (13-39) 08/24/23 12:34 ALT 18 U/L (7-52) 08/24/23 12:34 Alkaline Phosphatase 133 U/L (34-104) H 08/24/23 12:34 Iron 57 ug/dL (50-212) 08/24/23 12:34 Iron Saturation 16.1 % (20-50) L 08/24/23 12:34 Ferritin 111.9 ng/mL (11.0-306.8) 08/24/23 12:34 Total Protein 7.8 gm/dL (6.4-8.9) 08/24/23 12:34 Albumin 4.0 gm/dL (3.5-5.7) 08/24/23 12:34 RADIOLOGY/IMAGING RESULTS BILATERAL SCREENING MAMMOGRAMS - FULL FIELD DIGITAL WITH TOMOSYNTHESIS AND CAD Tomosynthesis craniocaudal and mediolateral oblique views of both breasts were obtained using low-dose digital technique. Comparison is made to prior studies from 05/23/2022, 04/17/2021, 01/20/2020, and 08/11/2018. This examination was reviewed with the aid of CAD. There are scattered fibroglandular densities. Benign-appearing lymph nodes are noted along the chest wall. There are punctate benign-appearing calcifications bilaterally. There are no dominant masses, typically malignant calcifications orarchitectural distortion. There has been no significant interval change. MM/MM screening mammo BI w/CAD IMPRESSION: NO MAMMOGRAPHIC EVIDENCE OF MALIGNANCY. ROUTINE FOLLOW-UP IS RECOMMENDED IN ONE YEAR. RESULT CODE: 2 Benign Findings(s) DENSITY CODE: 2 (approximately 25-50% glandular) FOLLOW UP: 1YR The false-negative rate of mammography is approximately 10-percent. Management of a palpable abnormality must be based on clinical grounds. Patient was entered into a reminder system with a target due date for the next mammogram. Impression dictated by: Harvey Barry M.D.08/19/2023 9:18 AM Dictated By: Roxane Bills MD DD/ [id number] Signed By: <Electronically signed by MD Roxane Bills> 09/02/23 [address] [facility] Work Phone: Reason for referral (narrative)No reason for referral information availableWayne [facility] Work Phone: Reason for visit Narrativediscuss pain management [facility] Other Reason for visit NarrativeNeurosurgery Referral Update [facility] Other Reason for Referral Reason left hip pain Diagnosis 1 Left hip pain (M25.5 52) Referral Organization [facility] Family Medicin jose Marie Referring Provider First Name Peri Referring Provider Last Name [facility] Referring Provider Specialty [facility] Referred Organization [facility] Referred Address ,[place], [place],[address] Referred Provider Specialty Orthopaedic Surgery Referral Priority Routine Reason CANCELLED Excessiv e daytime somnolence, hx narcolepsy diagnosis, currently on CPAP for TANYA Diagnosis 1 TANYA (obstructive sle ep apnea) (G47.33) Referral Organization [facility] Family Doretha Marie Referring Provider First Name Peri Referring Provider Last Name [facility] Referring Provider Specialty [facility] Referred Organization [facility] Referred Address [address] [place],[address] Referred Provider Specialty Sleep Medici ne Referral Priority Routine General Notes Elaina Salcido 03/2022 02:41:07 PM > referral received, Feli already faxed referral to Central Scheduling. Closing referral Reason * Waiting for appt neurology records pending Diagnosis 1 Low back pain, unspe cified (M54.50) Referral Organization [facility] Family Medicin jose Marie Referring Provider First Name Giovanni Referring Provider Last Name Josh Referring Provider Specialty [facility] Referred Organization [facility] Pain Managemen t Referred Provider Nicko Mckeon Referred Address [address] [facility] [address] ,[place], [place],[address] Referred Provider Specialty Pain Medicin e Referral Priority Routine General Notes Omari Elaina Harden 01:53:26 PM > referral received and sent p2p successful per log Reason * FU 07/29 ulcer Diagnosis 1 Non-pressure chronic ulcer of unspecified part of unspecified lower leg with unspecified severity (L97.909) Referral Organization [facility] Family Medicin e Frank Referring Provider First Name Giovanni Referring Provider Last Name Josh Referring Provider Specialty Family Medi cine Referred Organization [facility] Wound Ca re Hyperbaric Referred Address [address] [place], [place],[address] Referred Provider Specialty Wound Care Referral Priority Routine General Notes Elaina Salcido 02/2022 11:28:18 AM > referral received and faxed Chief Complaint and Reason for Visit Chief Complaint d47.2 g63 e66.01 z99 .81 I10 Abnormal SPEP Controlled substance agreement signed Hematuria, uReason for VisitMonoclonal gammopathy Degenerative joint disease of cervical and lumbar [...] Complaint Flank pain Obstructive sleep apnea Abnormal SPEPReason for VisitDegenerative joint disease of cervical and lumbar spine Iron deficiency anemia Bipolar disorder with depression CKD (chronic kidney disease) stage 3, GFR 30-59 ml/min COPD (chronic obstructive pulmonary disease) Diabetes Morbid obesity 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) Chief Complaint E11.22 E03.9 Abnormal SPEP Z12.39Reason for VisitDegenerative joint disease of cervical and lumbar spine Iron deficiency anemia Bipolar disorder with depression CKD (chronic kidney disease) stage 3, GFR 30-59 ml/min COPD (chronic obstructive pulmonary disease) Diabetes Morbid obesity 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) Chief Complaint Z12.39 I83.813 Abnormal SPEP E11.65;I10;E55.9Reason for VisitDegenerative joint disease of cervical and lumbar spine Bipolar disorder with depression CKD (chronic kidney disease) stage 3, GFR 30-59 ml/min COPD (chronic obstructive pulmonary disease) Diabetes Iron deficiency anemia Morbid obesity 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) Chief Complaint I83.813 Abnormal SPEP E11.65;I10;E55.9 C lumbar spondylosis M25.552Reason for VisitDegenerative joint disease of cervical and lumbar spine Bipolar disorder [...] spondylosis m54.16 Left Cataract Left Cataract Abnormal SPEPReason for VisitDegenerative joint disease of cervical and lumbar spine Bipolar disorder with depression CKD (chronic kidney disease) stage 3, GFR 30-59 ml/min COPD (chronic obstructive pulmonary disease) Diabetes Iron deficiency anemia Morbid obesity 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) Chief Complaint C lumbar spondylosis m54.16 Left Cataract Left Cataract Abnormal SPEP m25.552Reason for VisitDegenerative joint disease of cervical and lumbar spine Bipolar disorder with depression CKD (chronic kidney disease) stage 3, GFR 30-59 ml/min COPD (chronic obstructive pulmonary disease) Diabetes Iron deficiency anemia Morbid obesity 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) Chief Complaint Left Cataract Left Cataract m25.552 d47.2 I73.9 Abnormal SPEPReason for VisitDegenerative joint disease of cervical and lumbar spine Bipolar disorder with depression CKD (chronic kidney disease) stage 3, GFR 30-59 ml/min COPD (chronic obstructive pulmonary disease) Diabetes Iron deficiency anemia Morbid obesity 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) Chief Complaint d47.2 I73.9 Abnormal SPEP Open Wound ble ulcers ble varicose veins ble edemaReason for VisitBipolar disorder with depression CKD (chronic kidney disease) [...] ulcers ble varicose veins ble edema Open WoundReason for VisitBipolar disorder with depression CKD (chronic kidney disease) [...] ble edema Open Wound VENOUS INSUFF WITH ULCERSReason for VisitBipolar disorder with depression CKD (chronic kidney disease) [...] VENOUS INSUFF WITH ULCERS VENASEAL RT LEG GSVReason for VisitDebility Inflammation Irritable bowel disease On home oxygen [...] Amb Documentation 4 WK S/P VENASEAL LEFT LEGReason for VisitDebility Inflammation Irritable bowel disease On home oxygen [...] S/P VENASEAL LEFT LEG E11.65 I10 E55.9 Z79.4Reason for VisitDebility Inflammation Irritable bowel disease On home oxygen [...] veins of both lower extremities Chief Complaint Open Wound VENOUS INSUFF WITH ULCERS VENASEAL RT LEG GSV Amb Documentation 4 WK S/P VENASEAL LEFT LEG E11.65 I10 E55.9 Z79.4 6 month follow upReason for VisitDebility Inflammation Irritable bowel disease On home oxygen [...] Symptomatic varicose veins of both lower extremities Hypothyroidism Chief Complaint VENOUS INSUFF WITH U LCERS BH VENASEAL RT LEG GSV Amb Documentation 4 WK S/P VENASEAL LEFT LEG E11.65 I10 E55.9 Z79.4 6 month follow up e03.9 Z12.31Reason for VisitSymptomatic varicose veins of both lower extremities Venous reflux Symptomatic varicose veins of both lower extremities Hypothyroidism Morbid obesity with BMI of 45.0-49.9, adult Wound of left lower extremity Chief Complaint VENOUS INSUFF WITH U LCERS BH VENASEAL RT LEG GSV Amb Documentation 4 WK S/P VENASEAL LEFT LEG E11.65 I10 E55.9 Z79.4 6 month follow up e03.9 Z12.31 d47.2Reason for VisitSymptomatic varicose veins of both lower extremities Venous reflux Symptomatic varicose veins of both lower extremities Hypothyroidism Morbid obesity with BMI of 45.0-49.9, adult Wound of left lower extremity Chief Complaint VENASEAL RT LEG GSV Amb Documentation 4 WK S/P VENASEAL LEFT LEG E11.65 I10 E55.9 Z79.4 6 month follow up e03.9 Z12.31 d47.2 Abnormal SPEPReason for VisitSymptomatic varicose veins of both lower extremities Hypothyroidism Morbid obesity with BMI of 45.0-49.9, adult Wound of left lower extremity CKD (chronic kidney disease) stage 3, GFR 30-59 ml/min COPD (chronic obstructive pulmonary disease) Degenerative joint disease of cervical and lumbar 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) Iron deficiency anemia Pruritic erythematous rash Venous stasis dermatitis of both lower extremities Chief Complaint B Sacroilitis Abnormal SPEP Welcome to MedicareReason for VisitCKD (chronic kidney disease) stage 3, GFR 30- 59 ml/min COPD (chronic obstructive pulmonary disease) Degenerative joint disease of cervical and lumbar 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) Iron deficiency anemia Encounter for initial annual wellness visit in Medicare patient Chief Complaint Admit Date B Sacroilitis December 30, 2023 11:00am Welcome to Medicare February 09, 2024 8 :19am BH February 22, 2024 8:55am Abnormal SPEP February 24, 2024 9:57am Reason for Visit Admit Date Hypothyroidism February 09, 2024 8 :19am Tinea corporis February 09, 2024 8 :19am Type 2 diabetes mellitus without complic ations February 09, 2024 8:19am Encounter for initial annual wellness visit in Medicare patient February 09, 2024 8:19am CKD (chronic kidney disease) stage 3, GF R 30-59 ml/min February 24, 2024 9:57am COPD (chronic obstructive pulmonary dise ase) February 24, 2024 9:57am 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 February 24, 2024 9:57am 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) February 24, 2024 9:57am Iron deficiency anemia February 23 9:57am Bipolar disorder with depression Novembe r 2023 9:57am Diabetes February 24, 2024 9:57am Morbid obesity February 24, 2024 9:57am Chief Complaint Admit Date B Sacroilitis December 30, 2023 11:00am Welcome to Medicare February 09, 2024 8 :19am February 22, 2024 8:55am Follow Up March 02, 2024 1:03pm Abnormal SPEP March 02, 2024 1:04pm Reason for Visit Admit Date Hypothyroidism February 09, 2024 8 :19am Tinea corporis February 09, 2024 8 :19am Type 2 diabetes mellitus without complic ations February 09, 2024 8:19am Encounter for initial annual wellness visit in Medicare patient February 09, 2024 8:19am CKD (chronic kidney disease) stage 3, GF R 30-59 ml/min March 02, 2024 1:04pm COPD (chronic obstructive pulmonary dise ase) March 02, 2024 1:04pm 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 March 02, 2024 1:04pm 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) March 02, 2024 1:04pm Iron deficiency anemia March 02 1:04pm Bipolar disorder with depression Novembe r 2023 1:04pm Diabetes March 02, 2024 1:04pm Morbid obesity March 02, 2024 1:04pm Chief Complaint Admit Date Welcome to Medicare February 09, 2024 8 :19am Follow Up March 02, 2024 1:03pm Abnormal SPEP March 02, 2024 1:04pm leg swelling, hip pain/ortho referral No vember 2023 11:07am March 21, 2024 8 :15am M16.12 - Unilateral primary osteoarthrit is, left h April 18, 2024 9:10am Reason for Visit Admit Date Hypothyroidism February 09, 2024 8 :19am Tinea corporis February 09, 2024 8 :19am Type 2 diabetes mellitus without complic ations February 09, 2024 8:19am Encounter for initial annual wellness visit in Medicare patient February 09, 2024 8:19am History of iron deficiency anemia Novemb er 2023 1:03pm Morbid obesity with BMI of 45.0-49.9, ad ult March 02, 2024 1:03pm Pruritic erythematous rash February 1:03pm Bipolar 1 disorder March 02, 2024 1:03pm CKD (chronic kidney disease) stage 3, GF R 30-59 ml/min March 02, 2024 1:03pm COPD (chronic obstructive pulmonary dise ase) March 02, 2024 1:03pm 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 March 02, 2024 1:03pm 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 March 02, 2024 1:03pm Hypertension March 02, 2024 1:03pm 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) March 02, 2024 1:03pm Venous stasis dermatitis of both lower e xtremities March 02, 2024 1:03pm CKD (chronic kidney disease) stage 3, GF R 30-59 ml/min March 02, 2024 1:04pm COPD (chronic obstructive pulmonary dise ase) March 02, 2024 1:04pm 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 March 02, 2024 1:04pm 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) March 02, 2024 1:04pm Iron deficiency anemia March 02 1:04pm Bipolar disorder with depression Novembe r 2023 1:04pm Diabetes March 02, 2024 1:04pm Morbid obesity March 02, 2024 1:04pm Trochanteric bursitis of left hip Novemb er 2023 11:07am Venous stasis dermatitis of both lower e xtremities March 07, 2024 11:07am Chief Complaint Admit Date July 11, 2024 8:4 5am 6 month follow up August 08, 2024 8:2 1am Reason for Visit Admit Date BMI 40.0-44.9, adult August 08, 2024 8: 21am Morbid (severe) obesity due to excess ca lories August 08, 2024 8:21am Stage 3b chronic kidney disease August 082024 8:21am Swelling of hand joint August 08, 2024 8:21am Type 2 diabetes mellitus wit h diabetic neuropathy, unspecified August 08, 2024 8:21am Bipolar 1 disorder August 08, 2024 8:2 1am COPD (chronic obstructive pulmonary dise ase) August 08, 2024 8:21am Chief Complaint Admit Date BH July 11, 2024 8:4 5am 6 month follow up August 08, 2024 8:2 1am E03.9 August 11, 2024 12:33p m Follow Up 6 Months August 31, 2024 10:58 am D47.2 September 19, 2024 8:53a m Follow Up after Biopsy October 06, 2024 1 1:08am Reason for Visit Admit Date BMI 40.0-44.9, adult August 08, 2024 8: 21am Morbid (severe) obesity due to excess ca lories August 08, 2024 8:21am Stage 3b chronic kidney disease August 082024 8:21am Swelling of hand joint August 08, 2024 8:21am Type 2 diabetes mellitus wit h diabetic neuropathy, unspecified August 08, 2024 8:21am Bipolar 1 disorder August 08, 2024 8:2 1am COPD (chronic obstructive pulmonary dise ase) August 08, 2024 8:21am History of iron deficiency anemia August 312024 10:58am Pruritic erythematous rash August 31 10:58am Bipolar 1 disorder August 31, 2024 10:58 am COPD (chronic obstructive pulmonary dise ase) August 31, 2024 10:58am 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 August 31, 2024 10:58am 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 August 31, 2024 10:58am Hypertension August 31, 2024 10:58 am 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) August 31, 2024 10:58am CKD (chronic kidney disease) stage 3, GF R 30-59 ml/min August 31, 2024 10:58am Morbid obesity with BMI of 45.0-49.9, ad ult August 31, 2024 10:58am Venous stasis dermatitis of both lower e xtremities August 31, 2024 10:58am COPD (chronic obstructive pulmonary dise ase) October 06, 2024 11:08am 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 October 06, 2024 11:08am 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) October 06, 2024 11:08am CKD (chronic kidney disease) stage 3, GF R 30-59 ml/min October 06, 2024 11:08am Iron deficiency anemia October 06, 2024 1 1:08am Bipolar disorder with depression October 062024 11:08am Diabetes October 06, 2024 11:0 8am Morbid obesity October 06, 2024 11:0 8am History of iron deficiency anemia September 122024 11:08am Pruritic erythematous rash October 06 11:08am Bipolar 1 disorder October 06, 2024 11:0 8am 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 October 06, 2024 11:08am Hypertension October 06, 2024 11:0 8am Morbid obesity with BMI of 45.0-49.9, ad ult October 06, 2024 11:08am Venous stasis dermatitis of both lower e xtremities October 06, 2024 11:08am Chief Complaint Admit Date 6 month follow up August 08, 2024 8:2 1am E03.9 August 11, 2024 12:33p m Follow Up 6 Months August 31, 2024 10:58 am D47.2 September 19, 2024 8:53a m Follow Up after Biopsy October 06, 2024 1 1:08am BH October 24, 2024 12:1 8pm Follow Up 3 Weeks October 27, 2024 1:46 pm Reason for Visit Admit Date BMI 40.0-44.9, adult August 08, 2024 8: 21am Morbid (severe) obesity due to excess ca lories August 08, 2024 8:21am Stage 3b chronic kidney disease August 082024 8:21am Swelling of hand joint August 08, 2024 8:21am Type 2 diabetes mellitus wit h diabetic neuropathy, unspecified August 08, 2024 8:21am Bipolar 1 disorder August 08, 2024 8:2 1am COPD (chronic obstructive pulmonary dise ase) August 08, 2024 8:21am History of iron deficiency anemia August 312024 10:58am Pruritic erythematous rash August 31 10:58am Bipolar 1 disorder August 31, 2024 10:58 am COPD (chronic obstructive pulmonary dise ase) August 31, 2024 10:58am 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 August 31, 2024 10:58am 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 August 31, 2024 10:58am Hypertension August 31, 2024 10:58 am 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) August 31, 2024 10:58am CKD (chronic kidney disease) stage 3, GF R 30-59 ml/min August 31, 2024 10:58am Morbid obesity with BMI of 45.0-49.9, ad ult August 31, 2024 10:58am Venous stasis dermatitis of both lower e xtremities August 31, 2024 10:58am Cancer related pain October 06, 2024 11:0 8am History of iron deficiency anemia September 122024 11:08am IgG myeloma October 06, 2024 11:0 8am Pruritic erythematous rash October 06 11:08am Bipolar 1 disorder October 06, 2024 11:0 8am COPD (chronic obstructive pulmonary dise ase) October 06, 2024 11:08am 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 October 06, 2024 11:08am Hypertension October 06, 2024 11:0 8am CKD (chronic kidney disease) stage 3, GF R 30-59 ml/min October 06, 2024 11:08am Morbid obesity with BMI of 45.0-49.9, ad ult October 06, 2024 11:08am Venous stasis dermatitis of both lower e xtremities October 06, 2024 11:08am COPD (chronic obstructive pulmonary dise ase) October 27, 2024 1:46pm 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 October 27, 2024 1:46pm 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) October 27, 2024 1:46pm CKD (chronic kidney disease) stage 3, GF R 30-59 ml/min October 27, 2024 1:46pm Iron deficiency anemia October 27, 2024 1 :46pm Bipolar disorder with depression October 272024 1:46pm Diabetes October 27, 2024 1:46 pm Morbid obesity October 27, 2024 1:46 pm Reason for Visit Admit Date BMI 40.0-44.9, adult August 08, 2024 8: 21am Morbid (severe) obesity due to excess ca lories August 08, 2024 8:21am Stage 3b chronic kidney disease August 082024 8:21am Swelling of hand joint August 08, 2024 8:21am Type 2 diabetes mellitus wit h diabetic neuropathy, unspecified August 08, 2024 8:21am Bipolar 1 disorder August 08, 2024 8:2 1am COPD (chronic obstructive pulmonary dise ase) August 08, 2024 8:21am History of iron deficiency anemia August 312024 10:58am Pruritic erythematous rash August 31 10:58am Bipolar 1 disorder August 31, 2024 10:58 am COPD (chronic obstructive pulmonary dise ase) August 31, 2024 10:58am 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 August 31, 2024 10:58am 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 August 31, 2024 10:58am Hypertension August 31, 2024 10:58 am 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) August 31, 2024 10:58am CKD (chronic kidney disease) stage 3, GF R 30-59 ml/min August 31, 2024 10:58am Morbid obesity with BMI of 45.0-49.9, ad ult August 31, 2024 10:58am Venous stasis dermatitis of both lower e xtremities August 31, 2024 10:58am Cancer related pain October 06, 2024 11:0 8am History of iron deficiency anemia September 122024 11:08am IgG myeloma October 06, 2024 11:0 8am Pruritic erythematous rash October 06 11:08am Bipolar 1 disorder October 06, 2024 11:0 8am COPD (chronic obstructive pulmonary dise ase) October 06, 2024 11:08am 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 October 06, 2024 11:08am Hypertension October 06, 2024 11:0 8am CKD (chronic kidney disease) stage 3, GF R 30-59 ml/min October 06, 2024 11:08am Morbid obesity with BMI of 45.0-49.9, ad ult October 06, 2024 11:08am Venous stasis dermatitis of both lower e xtremities October 06, 2024 11:08am COPD (chronic obstructive pulmonary dise ase) October 27, 2024 1:46pm 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 October 27, 2024 1:46pm 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) October 27, 2024 1:46pm CKD (chronic kidney disease) stage 3, GF R 30-59 ml/min October 27, 2024 1:46pm Iron deficiency anemia October 27, 2024 1 :46pm Bipolar disorder with depression October 272024 1:46pm Diabetes October 27, 2024 1:46 pm Morbid obesity October 27, 2024 1:46 pm Cancer related pain October 27, 2024 1:46 pm Encounter for chemotherapy management [facility] 20[facility] 1:46pm History of iron deficiency anemia October 112024 1:46pm IgG myeloma October 27, 2024 1:46 pm Pruritic erythematous rash October 27 1:46pm Bipolar 1 disorder October 27, 2024 1:46 pm 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 October 27, 2024 1:46pm Hypertension October 27, 2024 1:46 pm Morbid obesity with BMI of 45.0-49.9, ad ult October 27, 2024 1:46pm Venous stasis dermatitis of both lower e xtremities October 27, 2024 1:46pm Chief Complaint Admit Date Follow Up 6 Months August 31, 2024 10:58 am D47.2 September 19, 2024 8:53a m Follow Up after Biopsy October 06, 2024 1 1:08am BH October 24, 2024 12:1 8pm Follow Up 3 Weeks October 27, 2024 1:46 pm Abnormal SPEP November 22, 2024 9: 35am tox check November 22, 2024 11 :23am Reason for Visit Admit Date History of iron deficiency anemia August 312024 10:58am Pruritic erythematous rash August 31 10:58am Bipolar 1 disorder August 31, 2024 10:58 am COPD (chronic obstructive pulmonary dise ase) August 31, 2024 10:58am 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 August 31, 2024 10:58am 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 August 31, 2024 10:58am Hypertension August 31, 2024 10:58 am 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) August 31, 2024 10:58am CKD (chronic kidney disease) stage 3, GF R 30-59 ml/min August 31, 2024 10:58am Morbid obesity with BMI of 45.0-49.9, ad ult August 31, 2024 10:58am Venous stasis dermatitis of both lower e xtremities August 31, 2024 10:58am Cancer related pain October 06, 2024 11:0 8am History of iron deficiency anemia September 122024 11:08am IgG myeloma October 06, 2024 11:0 8am Pruritic erythematous rash October 06 11:08am Bipolar 1 disorder October 06, 2024 11:0 8am COPD (chronic obstructive pulmonary dise ase) October 06, 2024 11:08am 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 October 06, 2024 11:08am Hypertension October 06, 2024 11:0 8am CKD (chronic kidney disease) stage 3, GF R 30-59 ml/min October 06, 2024 11:08am Morbid obesity with BMI of 45.0-49.9, ad ult October 06, 2024 11:08am Venous stasis dermatitis of both lower e xtremities October 06, 2024 11:08am Cancer related pain October 27, 2024 1:46 pm Encounter for chemotherapy management [facility] 2024 1:46pm History of iron deficiency anemia October 112024 1:46pm IgG myeloma October 27, 2024 1:46 pm Pruritic erythematous rash October 27 1:46pm Bipolar 1 disorder October 27, 2024 1:46 pm COPD (chronic obstructive pulmonary dise ase) October 27, 2024 1:46pm 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 October 27, 2024 1:46pm Hypertension October 27, 2024 1:46 pm CKD (chronic kidney disease) stage 3, GF R 30-59 ml/min October 27, 2024 1:46pm Morbid obesity with BMI of 45.0-49.9, ad ult October 27, 2024 1:46pm Venous stasis dermatitis of both lower e xtremities October 27, 2024 1:46pm COPD (chronic obstructive pulmonary dise ase) November 22, 2024 9:35am 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 November 22, 2024 9:35am 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) November 22, 2024 9:35am CKD (chronic kidney disease) stage 3, GF R 30-59 ml/min November 22, 2024 9:35am Iron deficiency anemia November 22, 2024 9:35am Bipolar disorder with depression November 22, 2024 9:35am Diabetes November 22, 2024 9: 35am Morbid obesity November 22, 2024 9: 35am Cancer related pain November 22, 2024 11 :23am Encounter for chemotherapy management [facility] 20[facility] 11:23am History of iron deficiency anemia [...] lower e xtremities November 22, 2024 11:23am Chief Complaint Admit Date D47.2 September 19, 2024 8:53a m Follow Up after Biopsy October 06, 2024 1 1:08am BH October 24, 2024 12:1 8pm Follow Up 3 Weeks October 27, 2024 1:46 pm tox check November 22, 2024 11 :23am Abnormal SPEP December 06, 2024 9: 44am Follow Up Seen upstairs December 06 11:11am Reason for Visit Admit Date Cancer related pain October 06, 2024 11:0 8am History of iron deficiency anemia September 122024 11:08am IgG myeloma October 06, 2024 11:0 8am Pruritic erythematous rash October 06 11:08am Bipolar 1 disorder October 06, 2024 11:0 8am COPD (chronic obstructive pulmonary dise ase) October 06, 2024 11:08am 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 October 06, 2024 11:08am Hypertension October 06, 2024 11:0 8am CKD (chronic kidney disease) stage 3, GF R 30-59 ml/min October 06, 2024 11:08am Morbid obesity with BMI of 45.0-49.9, ad ult October 06, 2024 11:08am Venous stasis dermatitis of both lower e xtremities October 06, 2024 11:08am Cancer related pain October 27, 2024 1:46 pm Encounter for chemotherapy management [facility] 2024 1:46pm History of iron deficiency anemia October 112024 1:46pm IgG myeloma October 27, 2024 1:46 pm Pruritic erythematous rash October 27 1:46pm Bipolar 1 disorder October 27, 2024 1:46 pm COPD (chronic obstructive pulmonary dise ase) October 27, 2024 1:46pm 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 October 27, 2024 1:46pm Hypertension October 27, 2024 1:46 pm CKD (chronic kidney disease) stage 3, GF R 30-59 ml/min October 27, 2024 1:46pm Morbid obesity with BMI of 45.0-49.9, ad ult October 27, 2024 1:46pm Venous stasis dermatitis of both lower e xtremities October 27, 2024 1:46pm Cancer related pain November 22, 2024 11 :23am Encounter for chemotherapy management [place] [facility] 2024 11:23am History of iron deficiency anemia [...] lower e xtremities November 22, 2024 11:23am COPD (chronic obstructive pulmonary dise ase) December 06, 2024 9:44am 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 December 06, 2024 9:44am 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) December 06, 2024 9:44am CKD (chronic kidney disease) stage 3, GF R 30-59 ml/min December 06, 2024 9:44am Iron deficiency anemia December 06, 2024 9:44am Bipolar disorder with depression December 06, 2024 9:44am Diabetes December 06, 2024 9: 44am Morbid obesity December 06, 2024 9: 44am Chief Complaint Admit Date Follow Up after Biopsy October 06, 2024 1 1:08am Follow Up 3 Weeks October 27, 2024 1:46 pm tox check November 22, 2024 11 :23am Follow Up Seen upstairs December 06 11:11am BH December 07, 2024 8: 42am f/u December 21, 2024 8:30am Abnormal SPEP December 21, 2024 8:58am Reason for Visit Admit Date Cancer related pain October 06, 2024 11:0 8am History of iron deficiency anemia September 122024 11:08am IgG myeloma October 06, 2024 11:0 8am Pruritic erythematous rash October 06 11:08am Bipolar 1 disorder October 06, 2024 11:0 8am COPD (chronic obstructive pulmonary dise ase) October 06, 2024 11:08am 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 October 06, 2024 11:08am Hypertension October 06, 2024 11:0 8am CKD (chronic kidney disease) stage 3, GF R 30-59 ml/min October 06, 2024 11:08am Morbid obesity with BMI of 45.0-49.9, ad ult October 06, 2024 11:08am Venous stasis dermatitis of both lower e xtremities October 06, 2024 11:08am Cancer related pain October 27, 2024 1:46 pm Encounter for chemotherapy management [facility] 2024 1:46pm History of iron deficiency anemia October 112024 1:46pm IgG myeloma October 27, 2024 1:46 pm Pruritic erythematous rash October 27 1:46pm Bipolar 1 disorder October 27, 2024 1:46 pm COPD (chronic obstructive pulmonary dise ase) October 27, 2024 1:46pm 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 October 27, 2024 1:46pm Hypertension October 27, 2024 1:46 pm CKD (chronic kidney disease) stage 3, GF R 30-59 ml/min October 27, 2024 1:46pm Morbid obesity with BMI of 45.0-49.9, ad ult October 27, 2024 1:46pm Venous stasis dermatitis of both lower e xtremities October 27, 2024 1:46pm Cancer related pain November 22, 2024 11 :23am Encounter for chemotherapy management [facility] [place] 2024 11:23am History of iron deficiency anemia [...] 11 :11am Encounter for chemotherapy management [facility] [place] 2024 11:11am History of iron deficiency anemia [...] for chemotherapy management Se ptember 2024 8:30am History of iron [...] lower e xtremities December 21, 2024 8:30am COPD (chronic obstructive pulmonary dise ase) December 21, 2024 8:58am 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 December 21, 2024 8:58am 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) December 21, 2024 8:58am CKD (chronic kidney disease) stage 3, GF R 30-59 ml/min December 21, 2024 8:58am Iron deficiency anemia December 21, 025 8:58am Bipolar disorder with depression Sept2024 8:58am Diabetes December 21, 2024 8:58am Morbid obesity December 21, 2024 8:58am Chief Complaint Admit Date Follow Up after Biopsy October 06, 2024 1 1:08am Follow Up 3 Weeks October 27, 2024 1:46 pm tox check November 22, 2024 11 :23am Follow Up Seen upstairs December 06 11:11am BH December 07, 2024 8: 42am f/u December 21, 2024 8:30am Abnormal SPEP December 26, 2024 9:59am ABN Labs December 26, 2024 12:59pm Reason for Visit Admit Date Cancer related pain October 06, 2024 11:0 8am History of iron deficiency anemia September 122024 11:08am IgG myeloma October 06, 2024 11:0 8am Pruritic erythematous rash October 06 11:08am Bipolar 1 disorder October 06, 2024 11:0 8am COPD (chronic obstructive pulmonary dise ase) October 06, 2024 11:08am 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 October 06, 2024 11:08am Hypertension October 06, 2024 11:0 8am CKD (chronic kidney disease) stage 3, GF R 30-59 ml/min October 06, 2024 11:08am Morbid obesity with BMI of 45.0-49.9, ad ult October 06, 2024 11:08am Venous stasis dermatitis of both lower e xtremities October 06, 2024 11:08am Cancer related pain October 27, 2024 1:46 pm Encounter for chemotherapy management [facility] 2024 1:46pm History of iron deficiency anemia October 112024 1:46pm IgG myeloma October 27, 2024 1:46 pm Pruritic erythematous rash October 27 1:46pm Bipolar 1 disorder October 27, 2024 1:46 pm COPD (chronic obstructive pulmonary dise ase) October 27, 2024 1:46pm 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 October 27, 2024 1:46pm Hypertension October 27, 2024 1:46 pm CKD (chronic kidney disease) stage 3, GF R 30-59 ml/min October 27, 2024 1:46pm Morbid obesity with BMI of 45.0-49.9, ad ult October 27, 2024 1:46pm Venous stasis dermatitis of both lower e xtremities October 27, 2024 1:46pm Cancer related pain November 22, 2024 11 :23am Encounter for chemotherapy management [facility] 2024 11:23am History of iron deficiency anemia [...] 11 :11am Encounter for chemotherapy management [place] [facility] 2024 11:11am History of iron deficiency anemia [...] 2024 8:30am Encounter for chemotherapy management Se pt2024 8:30am Fever of unknown origin (FUO) December [...] lower e xtremities December 21, 2024 8:30am COPD (chronic obstructive pulmonary dise ase) December 26, 2024 9:59am 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 December 26, 2024 9:59am 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) December 26, 2024 9:59am CKD (chronic kidney disease) stage 3, GF R 30-59 ml/min December 26, 2024 9:59am Iron deficiency anemia December 26, 2 025 9:59am Bipolar disorder with depression Septemb 2024 9:59am Diabetes December 26, 2024 9:59am Morbid obesity December 26, 2024 9:59am Chief Complaint Admit Date Follow Up after Biopsy October 06, 2024 1 1:08am Follow Up 3 Weeks October 27, 2024 1:46 pm tox check November 22, 2024 11 :23am Follow Up Seen upstairs December 06 11:11am BH December 07, 2024 8: 42am f/u December 21, 2024 8:30am Abnormal SPEP December 26, 2024 9:59am ABN Labs December 26, 2024 12:59pm trouble walking, shaking December 27, 2024 8:56am Reason for Visit Admit Date Cancer related pain October 06, 2024 11:0 8am History of iron deficiency anemia September 122024 11:08am IgG myeloma October 06, 2024 11:0 8am Pruritic erythematous rash October 06 11:08am Bipolar 1 disorder October 06, 2024 11:0 8am COPD (chronic obstructive pulmonary dise ase) October 06, 2024 11:08am 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 October 06, 2024 11:08am Hypertension October 06, 2024 11:0 8am CKD (chronic kidney disease) stage 3, GF R 30-59 ml/min October 06, 2024 11:08am Morbid obesity with BMI of 45.0-49.9, ad ult October 06, 2024 11:08am Venous stasis dermatitis of both lower e xtremities October 06, 2024 11:08am Cancer related pain October 27, 2024 1:46 pm Encounter for chemotherapy management [facility] 2024 1:46pm History of iron deficiency anemia October 112024 1:46pm IgG myeloma October 27, 2024 1:46 pm Pruritic erythematous rash October 27 1:46pm Bipolar 1 disorder October 27, 2024 1:46 pm COPD (chronic obstructive pulmonary dise ase) October 27, 2024 1:46pm 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 October 27, 2024 1:46pm Hypertension October 27, 2024 1:46 pm CKD (chronic kidney disease) stage 3, GF R 30-59 ml/min October 27, 2024 1:46pm Morbid obesity with BMI of 45.0-49.9, ad ult October 27, 2024 1:46pm Venous stasis dermatitis of both lower e xtremities October 27, 2024 1:46pm Cancer related pain November 22, 2024 11 :23am Encounter for chemotherapy management [facility] [place] 2024 11:23am History of iron deficiency anemia [...] 11 :11am Encounter for chemotherapy management [place] 2024 11:11am History of iron deficiency anemia [...] 2024 8:30am Encounter for chemotherapy management Se pt2024 8:30am Fever of unknown origin (FUO) December 21, 2024 8:30am History of iron deficiency anemia Sept2024 8:30am IgG myeloma December 21, 2024 8:30am [...] lower e xtremities December 21, 2024 8:30am COPD (chronic obstructive pulmonary dise ase) December 26, 2024 9:59am 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 December 26, 2024 9:59am 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) December 26, 2024 9:59am CKD (chronic kidney disease) stage 3, GF R 30-59 ml/min December 26, 2024 9:59am Iron deficiency anemia December 26, 2 025 9:59am Bipolar disorder with depression Sept2024 9:59am Diabetes December 26, 2024 9:59am Morbid obesity December 26, 2024 9:59am Acute ITP December 27, 2024 8:56am Acute kidney injury superimposed on CKD December 27, 2024 8:56am IgG myeloma December 27, 2024 8:56am Neutropenia December 27, 2024 8:56am On home oxygen therapy December 27, 025 8:56am Pneumonia December 27, 2024 8:56am Stage 3b chronic kidney disease Septembe r 2024 8:56am Thrombocytopenia December 27, 2024 8:56am Type 2 diabetes mellitus wit h diabetic neuropathy, unspecified December 27, 2024 8:56am Bipolar 1 disorder December 27, 2024 8:56am COPD (chronic obstructive pulmonary dise ase) December 27, 2024 8:56am Hypertension December 27, 2024 8:56am TANYA (obstructive sleep apnea) December 27, 2024 8:56am Reason for Visit Admit Date Cancer related pain October 06, 2024 11:0 8am History of iron deficiency anemia September 122024 11:08am IgG myeloma October 06, 2024 11:0 8am Pruritic erythematous rash October 06 11:08am Bipolar 1 disorder October 06, 2024 11:0 8am COPD (chronic obstructive pulmonary dise ase) October 06, 2024 11:08am 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 October 06, 2024 11:08am Hypertension October 06, 2024 11:0 8am CKD (chronic kidney disease) stage 3, GF R 30-59 ml/min October 06, 2024 11:08am Morbid obesity with BMI of 45.0-49.9, ad ult October 06, 2024 11:08am Venous stasis dermatitis of both lower e xtremities October 06, 2024 11:08am Cancer related pain October 27, 2024 1:46 pm Encounter for chemotherapy management [facility] 2024 1:46pm History of iron deficiency anemia October 112024 1:46pm IgG myeloma October 27, 2024 1:46 pm Pruritic erythematous rash October 27 1:46pm Bipolar 1 disorder October 27, 2024 1:46 pm COPD (chronic obstructive pulmonary dise ase) October 27, 2024 1:46pm 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 October 27, 2024 1:46pm Hypertension October 27, 2024 1:46 pm CKD (chronic kidney disease) stage 3, GF R 30-59 ml/min October 27, 2024 1:46pm Morbid obesity with BMI of 45.0-49.9, ad ult October 27, 2024 1:46pm Venous stasis dermatitis of both lower e xtremities October 27, 2024 1:46pm Cancer related pain November 22, 2024 11 :23am Encounter for chemotherapy management [facility] 2024 11:23am History of iron deficiency anemia [...] 2024 11 :11am Encounter for chemotherapy management [facility] 2024 11:11am History of iron deficiency anemia [...] 8:30am History of iron deficiency anemia Septem [place] 2024 8:30am IgG myeloma December 21, 2024 [...] lower e xtremities December 21, 2024 8:30am COPD (chronic obstructive pulmonary dise ase) December 26, 2024 9:59am 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 December 26, 2024 9:59am 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) December 26, 2024 9:59am CKD (chronic kidney disease) stage 3, GF R 30-59 ml/min December 26, 2024 9:59am Iron deficiency anemia December 26, 2 025 9:59am [facility] 9:59am Diabetes December 26, 2024 9:59am Morbid obesity December 26, 2024 9:59am Acute ITP December 27, 2024 8:56am Acute kidney injury superimposed on CKD December [...] 2024 8:56am Stage 3b [facility] 8:56am Thrombocytopenia December 27, 2024 8:56am Type 2 diabetes mellitus wit h diabetic neuropathy, unspecified December 27, 2024 8:56am Bipolar 1 disorder December 27, 2024 8:56am COPD (chronic obstructive pulmonary dise ase) December 27, 2024 8:56am Hypertension December 27, 2024 8:56am TANYA (obstructive sleep apnea) December 27, 2024 8:56am Chief Complaint Admit Date Follow Up 3 Weeks October 27, 2024 1:46 pm tox check November 22, 2024 11 :23am Follow Up Seen upstairs December 06 11:11am BH December 07, 2024 8: 42am f/u December 21, 2024 8:30am ABN Labs December 26, 2024 12:59pm trouble walking, shaking December 27, 2024 8:56am f/u January 18, 2025 11 :13am Reason for Visit Admit Date Cancer related pain October 27, 2024 1:46 pm Encounter for chemotherapy management [place] 2024 1:46pm History of iron deficiency anemia October 112024 1:46pm IgG myeloma October 27, 2024 1:46 pm Pruritic erythematous rash October 27 1:46pm Bipolar 1 disorder October 27, 2024 1:46 pm COPD (chronic obstructive pulmonary dise ase) October 27, 2024 1:46pm 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 October 27, 2024 1:46pm Hypertension October 27, 2024 1:46 pm CKD (chronic kidney disease) stage 3, GF R 30-59 ml/min October 27, 2024 1:46pm Morbid obesity with BMI of 45.0-49.9, ad ult October 27, 2024 1:46pm Venous stasis dermatitis of both lower e xtremities October 27, 2024 1:46pm Cancer related pain November 22, 2024 11 :23am Encounter for chemotherapy management [facility] 2024 11:23am History of iron deficiency anemia [...] 11 :11am Encounter for chemotherapy management [place] [facility] 2024 11:11am History of iron deficiency anemia [...] 2024 8:30am Encounter for chemotherapy management Se pt2024 8:30am Fever of unknown origin (FUO) December [...] 8:56am On home oxygen therapy December 27, 025 8:56am Pneumonia December 27, 2024 8:56am Stage 3b chronic kidney disease Septembe r 2024 8:56am Thrombocytopenia December 27, 2024 8:56am Type 2 diabetes mellitus wit h diabetic neuropathy, unspecified December 27, 2024 8:56am Bipolar 1 disorder December 27, 2024 8:56am COPD (chronic obstructive pulmonary dise ase) December 27, 2024 8:56am Hypertension December 27, 2024 8:56am TANYA (obstructive sleep apnea) December 27, 2024 8:56am Acute ITP December 27, 2024 8:56am COPD (chronic obstructive pulmonary dise ase) January 18, 2025 11:13am 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 January 18, 2025 11:13am 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) January 18, 2025 11:13am CKD (chronic kidney disease) stage 3, GF R 30-59 ml/min January 18, 2025 11:13am Iron deficiency anemia January 18, 2025 11:13am Bipolar disorder with depression January 18, 2025 11:13am Diabetes January 18, 2025 11 :13am Morbid obesity January 18, 2025 11 :13am Cancer related pain January 18, 2025 11 :13am Encounter for chemotherapy management [facility] 2024 11:13am Fever of unknown origin (FUO) January 11:13am History of iron deficiency anemia Octobe r 2024 11:13am IgG myeloma January 18, 2025 11 :13am Pruritic erythematous rash 2025 11:13am Bipolar 1 disorder January 18, 2025 11 :13am 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 January 18, 2025 11:13am Hypertension January 18, 2025 11 :13am Morbid obesity with BMI of 45.0-49.9, ad ult January 18, 2025 11:13am Venous stasis dermatitis of both lower e xtremities January 18, 2025 11:13am Follow-up visit after completion of alexandra tment January 18, 2025 11:13am Family History No Family History Records Found Relationship Condition Age at Onset Recorded Date/T [place] natural son Hypertension Unknown sisterHypertensionUnknownPolyp of colonUnknowngrandparentMalignant neoplasm of breastUnknowngrandparentLeukemiaUnknownbrotherDiabetes mellitusUnknown Relationship Condition Age at Onset Recorded Date/T [place] natural son Hypertension Unknown sisterHypertensionUnknownPolyp of colonUnknowngrandparentMalignant neoplasm of breastUnknowngrandparentLeukemiaUnknownbrotherDiabetes mellitusUnknown HypertensionUnknownbrotherHypertensionUnknownfatherDeceasedUnknownfamily member DeceasedUnknowngrandparentMalignant neoplasmUnknownLeukemiaUnknownNot Specified DeceasedUnknownDiabetes mellitusUnknownsisterDiabetes mellitusUnknown Relationship Condition Age at Onset Recorded Date/[place] son Hypertension Unknown sisterHypertensionUnknownPolyp of colonUnknowngrandparentMalignant neoplasm of breastUnknowngrandparentLeukemiaUnknownbrotherDiabetes mellitusUnknown HypertensionUnknownbrotherHypertensionUnknownfatherDeceasedUnknownfamily member DeceasedUnknowngrandparentMalignant neoplasmUnknownLeukemiaUnknownmotherDeceased UnknownDiabetes mellitusUnknownsisterDiabetes mellitusUnknown Advance Directives No Advanced Directives Records Found [...] FOR VISIT (unrecogniz ed section and content) ReasonCommentsMed RefillReasonCommentsCOPD6 month follow upReasonComments DiabetesFollow-upReasonCommentsDM Foot CareDm NailsReasonCommentsDM Foot CareDm nail careReasonCommentsCOPD6 month follow upSleep Apnea6 month follow upReason CommentsDM Foot CareDM NAIL CAREReasonOnset DateCommentsMed [id number]/28/2024 ReasonCommentsDM Foot Care Care Teams (unrecognized sec tion and content) Team Status: Active Member Role Status Alyssa Tyson DO Primary Care Provider Active Team Status: Inactive Member Role Status Alyssa Tyson DO Primary Care Provider Active Start: August 08, 2024 End: August 08, 2024Marko Miranda ProviderActiveStart: August 08, 2024 End: August 08, 2024 Team Status: Inactive Member Role Status Alyssa Tyson DO Primary Care Provider Active Start: August 11, 2024 End: August 11, 2024Peri Tyson DOAttmariaelena ProviderActiveStart: August 11, 2024 End: August 11, 2024 Team Status: Inactive Member Role Status Alyssa Tyson DO Primary Care Provider Active Start: August 31, 2024 End: August 31my Carlos Billsending ProviderActiveStart: August 31, 2024 End: August 31, 2024 Team Status: Inactive Member Role Status Alyssa Tyson DO Primary Care Provider Active Start: September 19, 2024 End: September 19my Sanju , MDAttending ProviderActiveStart: September 19, 2024 End: September 19, 2024 Team Status: Inactive Member Role Status Alyssa Tyson DO Primary Care Provider Active Start: October 06, 2024 End: October 06my Sanju , MDAttending ProviderActiveStart: October 06, 2024 End: October 06, 2024 Team Status: Active Member Role Status Alyssa Tyson DO Primary Care Provider Active Start: October 24, 2024 Truong Ward , MDAttending ProviderActiveStart: October 24, 2024 Team Status: Inactive Member Role Status Dates Peri Tyson , DO Primary Care Provider Active Start: October 27, 2024 End: October 27Rashid Sherman ProviderActiveStart: October 27, 2024 End: October 27, 2024Peri Tyson , DOPrimary Care ProviderActiveStart: October 27, 2024 Team Status: Active Member Role Status Dates Peri Tyson , DO Primary Care Provider Active Start: July 11, 2024 Truong Ward , MDAttending ProviderActiveStart: July 11, 2024 Team Status: Inactive Member Role Status Dates Peri Tyson DO Primary Care Provide r, Attending Provider Active Start: August 08, 2024 End: August 08, 2024 Team Status: Inactive Member Role Status Dates Peri Tyson DO Primary Care Provider Active Start: December 30, 2023 End: December 29william London PSYCHOLOGIST COUNSELING-CAttending ProviderActiveStart: December 30, 2023 End: December 30, 2023 Team Status: Inactive Member Role Status Dates Peri Tyson DO Primary Care Provide r, Attending Provider Active Start: February 09, 2024 End: February 09, 2024 Team Status: Active Member Role Status Dates Peri Tyson , DO Primary Care Provider Active Start: February 22, 2024 Truong Ward , MDAttending ProviderActiveStart: February 22, 2024 Team Status: Active Member Role Status Dates Roxane Bills MD Attending Provider Active Start: February 24, 2024 Brenden Groves , [facility] ProviderActiveStart: February 24, 2024 Peri Tyson , DOPrimary Care ProviderActiveStart: February 24, 2024 Raymundo Galicia , APRNActiveStart: February 24, 2024 Team Status: Active Member Role Status Dates Peri Tyson DO Primary Care Provider Active Start: June 29, 2023 Truong Ward , MDAttending ProviderActiveStart: June 29, 2023 Team Status: Inactive Member Role Status Dates Peri Tyson , DO Primary Care Provider Active Start: July 01, 2023 End: July 01, 2023Carlos Pereraending ProviderActiveStart: July 01, 2023 End: July 01, 2023 Team Status: Active Member Role Status Dates Peri Tyson DO Primary Care Provider Active Start: July 01, 2023 Leda Arias Beard ProviderActiveStart: July 01, 2023 Team Status: Inactive Member Role Status Dates Peri Tyson DO Primary Care Provider Active Start: July 29, 2023 End: July 29, 2023Carlos Pereraending ProviderActiveStart: July 29, 2023 End: July 29, 2023 Team Status: Inactive Member Role Status Dates Peri Tyson DO Primary Care Provider Active Start: July 31, 2023 End: July 30nadia Aguilar MDAttending ProviderActiveStart: July 31, 2023 End: July 31, 2023 Team Status: Inactive Member Role Status Dates Peri Tyson , DO Primary Care Provide r, Attending Provider Active Start: August 10, 2023 End: August 10, 2023 Team Status: Inactive Member Role Status Dates Peri Tyson DO Primary Care Provide r, Attending Provider Active Start: August 12, 2023 End: August 12, 2023 Team Status: Inactive Member Role Status Alyssa Tyson DO Primary Care Provide r, Attending Provider Active Start: August 19, 2023 End: August 19, 2023 Team Status: Inactive Member Role Status Dates Peri Tyson DO Primary Care Provider Active Start: August 24, 2023 End: August 23Rashid Sherman ProviderActiveStart: August 24, 2023 End: August 24, 2023 Team Status: Active Member Role Status Dates Roxane Bills MD Attending Provider Active Start: September 02, 2023 Farshad Deleon ProviderActiveStart: September 02, 2023 Peri Tyson DOPrimary Care ProviderActiveStart: September 02, 2023 Raymundo Galicia , APRNActiveStart: September 02, 2023 Team Status: Inactive Member Role Status Dates Peri A Tyson , DO Primary Care Provider Active Start: September 02, 2023 End: September 01my Rashid Bills ProviderActiveStart: September 02, 2023 End: September 02, 2023 Team Status: Inactive Member Role Status Dates Peri Tyson DO Primary Care Provider Active Start: May 08, 2023 End: May 08, 2023TonJosr Cortes ProviderActiveStart: May 08, 2023 End: May 08, 2023 Team Status: Inactive Member Role Status Dates Peri Tyson DO Primary Care Provider Active Start: May 12, 2023 End: May 12, 2023TonJosr Cortes ProviderActiveStart: May 12, 2023 End: May 12, 2023 Team Status: Inactive Member Role Status Dates Peri Tyson DO Primary Care Provider Active Start: May 27, 2023 End: May 27, 2023MaCarlos Kearnsending ProviderActiveStart: May 27, 2023 End: May 27, 2023 Team Status: Active Member Role Status Dates Roxane Bills MD Attending Provider Active Start: March 04, 2023 Brenden Groves , [facility]IBcl[facility] hospitaling ProviderActiveStart: March 04, 2023 Abe Miranda Care ProviderActiveStart: March 04, 2023 Lakia Demboske , APRNActiveStart: March 04, 2023 Team Status: Active Member Role Status Dates ePri Tyson DO Primary Care Provider Active Start: March 09, 2023 Truong Ward , Carlosending ProviderActiveStart: March 09, 2023 Team Status: Inactive Member Role Status Dates Peri Tyson DO Primary Care Provider Active Start: February 12, 2023 End: February 12Rashid Sherman ProviderActiveStart: February 12, 2023 End: February 12, 2023 Team Status: Inactive Member Role Status Dates Peri Tyson DO Primary Care Provide r, Attending Provider Active Start: February 19, 2023 End: February 19, 2023 Team Status: Active Member Role Status Dates Peri Tyson DO Primary Care Provider Active Start: February 09, 2023 Truong Ward , MDAttending ProviderActiveStart: February 09, 2023 Team Status: Active Member Role Status Dates Peri Tyson , DO Primary Care Provider Active Start: April 28, 2023 Erica Diehl , APRNAttenforest ProviderActiveStart: April 28, 2023 Team Status: Inactive Member Role Status Dates Peri Tyson , DO Primary Care Provider Active Ang Murphy , MDAttending ProviderActive Team Status: Inactive Member Role Status Dates Peri Tyson , DO Primary Care Provider, Attending Simon vargas Active Team Status: Active Member Role Status Dates Peri Tyson , DO Primary Care Provider Active NON STAFFAttending ProviderActive Team Status: Active Member Role Status Dates Roxane Bills MD ActiveFarshad Macias ProviderActiveGlanh Tyson , DO Primary Care ProviderActiveRaymundo Galicia , APRNAttending Provider Active Team Status: Inactive Member Role Status Dates Peri Tyson , DO Primary Care Provider Active Domenico Whitmore MDAttending ProviderActive Team Status: Inactive Member Role Status Dates Peri Tyson , DO Primary Care Provider Active Jeannie Aguilar MDAttending ProviderActive Team Status: Inactive Member Role Status Dates Giovanni Moreno , DO Primary Care Provider, Attending Provider Active Team Status: Inactive Member Role Status Dates Giovanni Moreno , DO Primary Care Provider Active Roxane Bills MDAttmariaelena ProviderActive Team Status: Active Member Role Status Dates Giovanni Moreno , DO Primary Care Provider Active Roxane Bills MDAttmariaelena ProviderActiveFarshad Macias ProviderActive Team Status: Inactive Member Role Status Dates Giovanni Moreno , DO Primary Care Provider Active Periluis Tyson , DOAttending ProviderActive Team Status: Active Member Role Status Dates Giovanni Moreno , DO Primary Care Provider Active Team Status: Inactive Member Role Status Dates Marcus Cummins MD Attending Provider Active RAFAEL Mirandarifanyy Care ProviderActiveFarshad Mace ProviderActive Team Status: Active Member Role Status Dates Roxane Bills MD Attending Provider Active Farshad Macias ProviderActiveGlRAFAEL Leeriraymundo Care ProviderActive Team Status: Inactive Member Role Status Dates Peri Tyson , DO Primary Care Provider Active Jez Josue DOAttmariaelena ProviderActive Team Status: Inactive Member Role Status Dates Peri Tyson , DO Primary Care Provider Active Nik Pineda MDAttmariaelena ProviderActive Team Status: Active Member Role Status Dates Roxane Bills MD Attending Provider Active Brenden Groves , DOReferring ProviderActiveGloria Luis Tyson , DOPriencompass health lakes[facility] rehabilitation hospitaly Care ProviderActiveMary Rose Marie Galicia , APRNActive Team Status: Inactive Member Role Status Dates Peri Tyson , DO Primary Care Provider Active Roxane Bills , JEREMIAHttmariaelena ProviderActiveTeam MemberRelationshipSpecialtyStart Date End Date Giovanni Moreno MD [address] [facility] [place] [address] PCP - GeneralFamily Medicine09/18/22am MemberRelationshipSpecialtyStart DateEnd Date Giovanni Moreno MD [address] [facility] [address] [place] [address] PCP - Generalmily Medicine09/18/22am MemberRelationshipSpecialtyStart DateEnd Date Giovanni Moreno MD [address] [facility] [place] [address] PCP - GeneralFamily Medicine09/18/22Team MemberRelationshipSpecialtyStart DateEnd Date Giovanni Moreno MD [address] [facility] [place] [address] PCP - Generalmily Medicine09/18/22Team MemberRelationshipSpecialtyStart DateEnd Date Giovanni Moreno MD [address] [facility] [place] [address] PCP - [facility]09/18/22Team MemberRelationshipSpecialtyStart DateEnd Date Giovanni Moreno MD [address] [facility] [place] [address] PCP - [facility]09/18/22Team MemberRelationshipSpecialtyStart DateEnd Date Giovanni Moreno MD [address] [facility] [place] [address] PCP - [facility]09/18/22 Team Status: Active Member Role Status Dates Peri Tyson DO Primary Care Provider Active Start: November 24, 2023 Carlos Wheatleyending ProviderActiveStart: November 24, 2023 Team Status: Active Member Role Status Dates Peri Tyson DO Primary Care Provider Active Start: December 30, 2023 Rachana London , PSYCHOLOGIST COUNSELING-CAttending ProviderActiveStart: December 30, 2023 Team Status: Active Member Role Status Dates Roxane Bills MD Attending Provider Active Start: February 02, 2024 Farshad Deleon ProviderActiveStart: February 02, 2024 Abe Miranda Care ProviderActiveStart: February 02, 2024 Raymundo Galicia , APRNActiveStart: February 02, 2024 Team Status: Inactive Member Role Status Dates Peri Tyson DO Primary Care Provider Active Start: March 02, 2024 End: March 02Rashid Sherman ProviderActiveStart: March 02, 2024 End: March 02, 2024 Team Status: Active Member Role Status Dates Roxane Bills MD Attending Provider Active Start: March 02, 2024 Farshad Deleon ProviderActiveStart: March 02, 2024 Abe Miranda Care ProviderActiveStart: March 02, 2024 Raymundo Galicia , APRNActiveStart: March 02, 2024 Team MemberRelationshipSpecialtyStart DateEnd Date Giovanni Moreno MD [address] [place] [address] PCP - [facility] Medicine09/18/22Team MemberRelationshipSpecialtyStart DateEnd Date Giovanni Moreno MD [address] [place] [address] PCP - [facility]09/18/22Team MemberRelationshipSpecialtyStart DateEnd Date Giovanni Moreno MD [address] [place] [address] PCP - [facility]09/18/22 Team Status: Inactive Member Role Status Dates Peri Tyson DO Primary Care Provide r, Attending Provider Active Start: March 07, 2024 End: March 07, 2024 Team Status: Active Member Role Status Dates Peri Tyson DO Primary Care Provider Active Start: March 21, 2024 Rashid Wheatley ProviderActiveStart: March 21, 2024 Team Status: Inactive Member Role Status Dates Jez Josue DO Attending Provider Active S tart: April 18, 2024 End: April 18, 2024GlAbe Lee Care ProviderActiveStart: April 18, 2024 End: April 18, 2024Team MemberRelationshipSpecialtyStart DateEnd Date Giovanni Moreno MD [address] [place] [address] PCP - [facility] Medicine09/18/22Team MemberRelationshipSpecialtyStart DateEnd Date Giovanni Moreno MD [address] [place] [address] PCP - [facility] Medicine09/18/22Team MemberRelationshipSpecialtyStart DateEnd Date Giovanni Moreno MD [address] [place] [address] PCP - GeneralFamily Medicine09/18/22 Team Status: Inactive Member Role Status Dates Peri Tyson , Primary Care Provide r, Attending Provider Active Start: August 11, 2024 End: August 11, 2024Team MemberRelationshipSpecialtyStart DateEnd Date Giovanni Moreno MD [address] [place] [address] PCP - Generalmily Medicine09/18/22Team MemberRelationshipSpecialtyStart DateEnd Date Giovanni Moreno MD [address] [place] [address] PCP - Generalmily Medicine09/18/22Team MemberRelationshipSpecialtyStart DateEnd Date Giovanni Moreno MD [address] [place] [address] PCP - Generalmily Medicine09/18/22Team MemberRelationshipSpecialtyStart DateEnd Date Giovanni Moreno MD [address] [place] [address] PCP - GeneralFamily Medicine09/18/22Team MemberRelationshipSpecialtyStart DateEnd Date Giovanni Moreno MD [address] [place] [address] PCP - Generalmily Medicine09/18/22Team MemberRelationshipSpecialtyStart DateEnd Date Giovanni Moreno MD [address] [place] [address] PCP - Generalmily Medicine09/18/22Team MemberRelationshipSpecialtyStart DateEnd Date Giovanni Moreno MD [address] [place] [address] PCP - [facility] Medicine09/18/22Team MemberRelationshipSpecialtyStart DateEnd Date Giovanni Moreno MD [address] [place] [address] PCP - [facility]09/18/22Team MemberRelationshipSpecialtyStart DateEnd Date Giovanni Moreno MD [address] [place] [address] PCP - [facility] Medicine09/18/22 Team Status: Inactive Member Role Status Dates Peri Tyson DO Primary Care Provider Active Start: October 06, 2024 End: October 06enrique Bills MDAttmariaelena ProviderActiveStart: October 06, 2024 End: October 06, 2024Abe Miranda Care ProviderActiveStart: October 06, 2024 Team Status: Inactive Member Role Status Dates Peri Tyson DO Primary Care Provider Active Start: November 01, 2024 End: November 01, 2024MAC Monacottending ProviderActiveStart: November 01, 2024 End: November 01, 2024Team MemberRelationshipSpecialtyStart DateEnd Date Giovanni Moreno MD [address] [place] [address] PCP - [facility] Medicine09/18/22Team MemberRelationshipSpecialtyStart DateEnd Date Giovanni Moreno MD [address] [place] [address] PCP - [facility]09/18/22 Team Status: Inactive Member Role Status Dates Peri Tyson DO Primary Care Provider Active Start: October 27, 2024 End: October 27my Sanju , MDAttending ProviderActiveStart: October 27, 2024 End: October 27, 2024 Team Status: Active Member Role Status Alyssa Bills MD Attending Provider Active Start: November 22, 2024 Randee Deleoning ProviderActiveStart: November 22, 2024 Abe Miranda Care ProviderActiveStart: November 22, 2024 Team Status: Inactive Member Role Status Alyssa Tyson DO Primary Care Provider Active Start: November 22, 2024 End: November 22nilam Cummins , PSYCHOLOGIST COUNSELING-CAttending ProviderActiveStart: November 22, 2024 End: November 22, 2024 Team Status: Active Member Role Status Alyssa Bills MD Attending Provider Active Start: December 06, 2024 Moises Deleonerring ProviderActiveStart: December 06, 2024 Abe Miranda Care ProviderActiveStart: December 06, 2024 Team Status: Inactive Member Role Status Alyssa Tyson DO Primary Care Provider Active Start: December 06, 2024 End: December 06nilam Cummins PSYCHOLOGIST COUNSELING-CAttending ProviderActiveStart: December 06, 2024 End: December 06, 2024 Team Status: Active Member Role Status Alyssa Tyson DO Primary Care Provider Active Start: December 07, 2024 Truong Ward MDAttending ProviderActiveStart: December 07, 2024 Team Status: Inactive Member Role Status Alyssa Tyson DO Primary Care Provider Active Start: December 21, 2024 End: December 21enrique Bills MDAttending ProviderActiveStart: December 21, 2024 End: December 21, 2024 Team Status: Active Member Role Status Alyssa Bills MD Attending Provider Active Start: December 21, 2024 Brenden Groves , DOReferring ProviderActiveStart: December 21, 2024 Periluis Tyson , DOPrimary Care ProviderActiveStart: December 21, 2024 Team Status: Active Member Role Status Dates Roxane Bills MD Attending Provider Active Start: December 26, 2024 Brenden Groves , DOReferring ProviderActiveStart: December 26, 2024 Periroyce Tyson , DOPrimary Care ProviderActiveStart: December 26, 2024 Team Status: Inactive Member Role Status Dates Peri Tyson , DO Primary Care Provider Active Start: December 26, 2024 End: December 26, 2024Chan Santana , DOEmergency ProviderActiveStart: December 26, 2024 End: December 26, 2024 Team Status: Active Member Role Status Dates Peri Tyson , DO Primary Care Provider Active Start: December 27, 2024 Christopher Steve ProviderActiveStart: December 27, 2024 Margarito Rajan MDAdmit ProviderActiveStart: December 27, 2024 Margarito Rajan MDAttending ProviderActiveStart: December 27, 2024 Guillermo Oleary II, DOOther ProviderActiveStart: December 27, 2024 Team Status: Active Member Role Status Dates Peri Tyson , DO Primary Care Provider Active Start: December 27, 2024 Christopher Steve ProviderActiveStart: December 27, 2024 Alice Aguayoit ProviderActiveStart: December 27, 2024 Margarito Rajan MDOther ProviderActiveStart: December 27, 2024 Guillermo Oleary II, DOOther ProviderActiveStart: December 27, 2024 Rashid Johnson ProviderActiveStart: December 27, 2024 Sina Johnson ProviderActiveStart: December 27, 2024 Team Status: Inactive Member Role Status Dates Peri Tyson , DO Primary Care Provider Active Start: January 18, 2025 End: January 18enrique Bills MDAttending ProviderActiveStart: January 18, 2025 End: January 18, 2025Peri Tyson , DOPrimary Care ProviderActiveStart: January 18, 2025 Goals (unrecognized section and content) Goals may be documented in a n alternate section INFORMATION SOURCE (unrecogn ized section and content) DATE CREATED AUTHOR 07/15/2022 [facility] DATE CREATED AUTHOR AUTHOR'S ORGANIZ ATION 10/29/2024 [facility] DATE CREATED AUTHOR AUTHOR'S ORGANIZ ATION 12/20/2024 [facility] DATE CREATED AUTHOR AUTHOR'S ORGANIZ ATION 02/08/2025 [facility] FOR RECORDS PERTAINING TO PATIENTS WHO [...] BE BASED ON THE PRIMARY CLINICAL RECORDS. [facility] [employer] provides no warranty or guarantee of the accuracy or completeness of information in this document.
--- NOTE | 2025-02-09 14:45 | PM.CN ---
Consult Note: HPI Data of Consult Patient: known to practice within the last 3 years Consult date: 02/09/25 Requesting Physician: Rachana London NP Primary Care Provider: [facility] Consult Narrative Reason for consult: f/u Narrative: Kelsea villatoro pleasant 63 year old female presents for evaluation and management of chronic low back pain. Patient notices increase in pain with walking and activity. Pain today stabbing 6/10 in left leg. pain increasing to 10/10 with standing walking and activity. utilizing gabapentin, norco, tizanidine, and gabapentin with benefit without side effects. pt notes prior left L4-5 L5-S1 TFESI and bilateral SIJ injection provided at least 50% improvement in pain and functional ability for 3 months. she has noticed increased pain over the last few weeks, especially in the LLE. pt following with oncology for weekly chemotherapy and treatment for melanoma. pt reports 1 recent hospitalization due to low platelets and bleeding. cc:: CC: Rachana London NP Review of Systems ROS Musculoskeletal Reports: back pain and extremity pain PFSH PFSH Medical History Plantar fasciitis ?M72.2 - Plantar fascial fibromatosis (ICD-10) Acid reflux ?K21.9 - Gastro-esophageal reflux disease without esophagitis (ICD-10) Obesity ?E66.9 - Obesity, unspecified (ICD-10) Anxiety ?F41.9 - Anxiety disorder, unspecified (ICD-10) COPD (chronic obstructive pulmonary disease) ?J44.9 - Chronic obstructive pulmonary disease, unspecified (ICD-10) Asthma ?J45.909 - Unspecified asthma, uncomplicated (ICD-10) Sleep apnea ?G47.30 - Sleep apnea, unspecified (ICD-10) Hypertension ?I10 - Essential (primary) hypertension (ICD-10) Surgical History H/O foot surgery ?Z98.890 - Other specified postprocedural states (ICD-10) History of delivery ?Z98.891 - History of uterine scar from previous surgery (ICD-10) History of cholecystectomy ?Z90.49 - Acquired absence of other specified parts of digestive tract (ICD-10) History of hysterectomy ?Z90.710 - Acquired absence of both cervix and uterus (ICD-10) Meds Home Medications and Allergies Home Medications ?Medication ?Instructions ?Recorded ?Confirmed ?Type allopurinol 300 mg tablet 300 mg PO DAILY 10/30/22 10/17/24 History amlodipine 5 mg tablet (Norvasc) 5 mg PO DAILY 10/30/22 10/17/24 History brexpiprazole 3 mg tablet (Rexulti) 3 mg PO DAILY 10/30/22 10/17/24 History budesonide-formoterol HFA 160 2 inh inhalation BID 10/30/22 10/17/24 History mcg-4.5 mcg/actuation aerosol inhaler (Symbicort) carvedilol 25 mg tablet 25 mg PO BID 10/30/22 10/17/24 History cholecalciferol (vitamin D3) 50 2,000 unit PO BID 10/30/22 10/17/24 History mcg (2,000 unit) capsule colestipol 1 gram tablet 1 g PO BID 10/30/22 10/17/24 History dicyclomine 20 mg tablet 20 mg PO QID 10/30/22 10/17/24 History doxycycline hyclate 100 mg capsule 100 mg PO DAILY 10/30/22 10/17/24 History duloxetine 60 mg capsule,delayed 60 mg PO DAILY 10/30/22 10/17/24 History release (Cymbalta) furosemide 40 mg tablet 40 mg PO DAILY 10/30/22 10/17/24 History hydroxyzine HCl 10 mg tablet 10 mg PO Q8H 10/30/22 10/17/24 History insulin glargine 100 unit/mL (3 20 unit subcut DAILY 10/30/22 10/17/24 History mL) subcutaneous pen (Lantus Solostar U-100 Insulin) ipratropium 0.5 mg-albuterol 3 mg 3 ml inhalation Q6H 10/30/22 10/17/24 History (2.5 mg base)/3 mL nebulization soln ipratropium bromide 0.02 % 0.5 mg inhalation Q6H PRN 10/30/22 10/17/24 History solution for inhalation shortness of breath or wheezing levomilnacipran 120 mg capsule,24 120 mg PO DAILY 10/30/22 10/17/24 History hr,extended release (Fetzima) levothyroxine 50 mcg capsule 50 mcg PO DAILY 10/30/22 10/17/24 History magnesium oxide 500 mg PO DAILY 10/30/22 10/17/24 History mirtazapine 30 mg tablet 30 mg PO DAILY 10/30/22 10/17/24 History montelukast 10 mg tablet 10 mg PO DAILY 10/30/22 10/17/24 History (Singulair) omeprazole 40 mg capsule,delayed 40 mg PO DAILY 10/30/22 10/17/24 History release oxybutynin chloride 10 mg 10 mg PO DAILY 10/30/22 10/17/24 History tablet,extended release 24 hr sucralfate 1 gram tablet 1 g PO TID 10/30/22 10/17/24 History theophylline 200 mg 200 mg PO DAILY 10/30/22 10/17/24 History capsule,extended release 24 hr (Nishant-24) tizanidine 4 mg capsule (Zanaflex) 4 mg PO BID PRN muscle spasticity 10/30/22 10/17/24 History naloxone 4 mg/actuation nasal 4 mg intranasal Q3M PRN opioid 03/04/24 10/17/24 Rx spray (Narcan) overdose #2 ea gabapentin 600 mg tablet See Rx Instructions .Route 03/21/24 10/17/24 Rx .COMPLEX #120 tabs gabapentin 600 mg tablet See Rx Instructions .Route 05/11/24 10/17/24 Rx .COMPLEX #120 tabs hydrocodone 5 mg-acetaminophen 325 1 tab PO TID PRN pain #90 tabs 09/08/24 10/17/24 Rx mg tablet hydrocodone 5 mg-acetaminophen 325 1 tab PO TID PRN pain #90 tabs 11/09/24 Rx mg tablet lenalidomide 25 mg capsule 25 mg PO DAILY 11/21/24 11/21/24 History (Revlimid) hydrocodone 5 mg-acetaminophen 325 1 tab PO Q8H PRN pain #90 tabs 12/13/24 Rx mg tablet tizanidine 4 mg capsule (Zanaflex) 4 mg PO BID PRN muscle spasticity 12/26/24 Rx #60 caps hydrocodone 5 mg-acetaminophen 325 1 tab PO BID PRN pain #60 tabs 01/10/25 Rx mg tablet Allergies Allergy/AdvReac Type Severity Reaction Status Date / Time honey Allergy Severe Anaphylaxis Verified 10/17/24 08:45 codeine Allergy Mild itching Verified 10/17/24 08:45 morphine AdvReac Vomiting Verified 10/17/24 08:45 Exam Constitutional Documenting provider has reviewed patient's vital signs: yes Common normals: no apparent distress, oriented x3, healthy appearing, alert and well nourished General appearance: cooperative Nutritional appearance: obese HENMT Common normals: normocephalic, hearing grossly normal bilaterally and moist oral mucous membranes Head and scalp: normocephalic Eye Common normals: PERRL Pupil: PERRL Neck & C-Spine Common normals: full ROM General: normal visual inspection Chest Common normals: inspection of chest normal Respiratory Common normals: normal respiratory effort, no retractions and no use of accessory muscles Other: chronic O2 Back & Pelvis Lumbar spine/lower back: ROM limited, pain with ROM and straight leg raise positive left Sacroiliac joints: SI joint(s) abnormal Other: bilateral sij positive gabi(patricks), gaenslens, thigh thrust, compression test decreased sensation to BLE following l4,5,s1 pattern, hx of DPN as well strength 4/5 in BLE Extremity Other: LLE non pitting edema no redness warmth or discoloration, scarring to left miramontes Neuro Common normals: oriented x3 Sensorium/orientation: alert Gait (neuro): antalgic and assistive device used walker Psych Common normals: mental status grossly normal, thought process normal, cooperative, affect normal, speech normal and activity/motor behavior normal Speech: normal speech Thought process: normal thought process Results Additional Findings Additional findings: If on a controlled substance or opioids, I have checked an [place] report on this patient and there are no aberrancies noted in the prescribing history.??If on a controlled substance or opioid a drug screen was completed and reviewed within the last year, and if there has not been a drug screen completed we ordered one today to monitor higher risk, state monitored pain medication use. As part of providing excellent, safe, comprehensive care, the following was completed at our patient's visit: 1. A medication reconciliation and review to ensure accurate knowledge of current/active medications, including asking our patients to inform us about any [id number] medications or herbal remedies/nutritional supplements/alternative remedies. 2. A review to specifically ensure our patients have had annual screening for screening for depression, screening for tobacco use, and screening for unhealthy alcohol use. For concerning screenings had a discussion with the patient, provided patient education, and recommended follow-up with primary care provider when appropriate. If patient noted with a risk of falling, they received education on strength, gait, and balance training to prevent future risk of falling. Portions of this note may have been carried over from the previous visit and updated as appropriate. Please note this office utilizes paper charting in addition to the electronic medical record. A list of current medications, vitals, and PMH is available there as the clinical staff outside of myself do not have access to [facility] charting during the clinic day operations. As part of providing quality comprehensive care the current medications, vitals, and PMH were reviewed in the paper chart. Assessment and Plan Assessment and Plan (1) Lumbar radiculopathy: (2) Lumbar stenosis with neurogenic claudication: (3) Sacroiliitis: (4) Encounter for long-term use of opiate analgesic: Plan The patient has had over 3 months of moderate to severe low back and left leg pain with functional impairment and inadequate response to conservative care including NSAIDS (unless there are contraindication such as concurrent blood thinners), multiple oral or topical pain medications, and home exercise program/physical therapy.? Patient has completed >6 weeks of guided home exercise program and/or formal physical therapy program without relief of their symptoms.? I have reviewed the imaging of the lumbar spine and no red flags were identified.? The imaging reveals radiographic findings consistent with lumbar spondylosis, lumbar stenosis, lumbar ddd The Oswestry Disability Index was completed, and the patient scored a 56%.? repeat left L4-5 L5-S1 TFESI under fluoroscopy, will confirm with heme/onc we are okay to proceed defer scs trial/workup due to ongoing cancer treatments continue current medications, risks vs benefits reviewed. noting moderate pain relief for 4 hours without side effects f/u after procedure
== END 2025-02-09 14:15 | disposition home or self-care (01) ==
LOC: PM 14:15
PROVIDERS: Visit Provider Nurse Practitioner
DX: M54.16 Radiculopathy, lumbar region (principal); M48.062 Spinal stenosis, lumbar region with neurogenic claudication; M46.1 Sacroiliitis, not elsewhere classified; Z79.891 Long term (current) use of opiate analgesic
CPT/HCPCS: G0463

== ENCOUNTER 2025-02-27 07:33 | Day surgery (SDC) | payer MEDICARE, MEDICAID, SELFPAY ==
--- OUTSIDE RECORDS SUMMARY | 2021-06-20 05:46 | XMS_ITS | Continuity of Care Document ---
Author Organization [facility] Address [address] [place] [address] Phone Care Team Providers Care Manager Drug Safety Name Role Phone Josafat Motley Unavailable Unavailable Allergies, Adverse Reactions, Alerts Substance Reaction Status Criticality metformin Active No Information codeine Itching Active No Information Medications Medication Instructions Dosage Effective Dates (start - stop) Status Comments Lantus Solostar U-100 Insulin 100 unit/mL (3 mL) subcutaneous pen inject 15 units subcutaneously once daily - Active Basaglar KwikPen U-100 Insulin 100 unit/mL (3 mL) subcutaneous inject 15 units by subcutaneous route every day - Active oxybutynin chloride ER 10 mg tablet,extended release 24 hr take 1 tablet by oral route every day 10 MG - Active omeprazole 40 mg capsule,delayed release take 1 capsule by oral route every day before a meal 40 MG - Active magnesium 400 mg (as magnesium oxide) tablet take 1 tablet by oral route every day 1 tablet - Active Ambien CR 6.25 mg tablet,extended release take 1 tablet by oral route every day at bedtime 6.25 MG - Active G47.00 hydrocodone 5 mg-acetaminophen 325 mg tablet take 1 tablet by oral route every 4 hours as needed for pain 1 tablet - Active G62.9 M25.561 amitriptyline 10 mg tablet take 1 tablet by oral route every day at bedtime 10 MG - Active amlodipine 10 mg tablet take 1 tablet by oral route every day 10 MG - Active carvedilol 25 mg tablet take 1 tablet by oral route 2 times every day with food 25 MG - Active celecoxib 200 mg capsule take 1 capsule by oral route 2 times every day as needed 200 MG - Active dicyclomine 20 mg tablet take 1 tablet by oral route 4 times every day 20 MG - Active duloxetine 60 mg capsule,delayed release take 1 capsule by oral route every day 60 MG - Active ferrous sulfate 325 mg (65 mg iron) tablet,delayed release 1 tablet by mouth once a day - Active furosemide 20 mg tablet take 1 tablet by oral route every day 20 MG - Active levothyroxine 50 mcg tablet take 1 tablet by oral route every day 50 MCG - Active metformin 850 mg tablet take 1 tablet by oral route 2 times every day with morning and evening meals 850 MG - Active pioglitazone 15 mg-metformin 850 mg tablet take 1 tablet by oral route 2 times every day 1 tablet - Active Vitamin D3 50 mcg (2,000 unit) tablet take 1 tablet by oral route every day 1 tablet - Active sucralfate 1 gram tablet take 1 tablet by oral route 4 times every day on an empty stomach 1 hour before meals and at bedtime 1 G - Active colestipol 1 gram tablet take 2 tablet by oral route every day swallowing whole with any liquid. Do not crush, chew and/or divide. 2 G - Active pen needle, diabetic 31 gauge x 1/4 inject 10 unit by injection route every day 10 unit - Active gabapentin 100 mg capsule take 1 capsule by oral route 3 times every day 100 MG - Active Fetzima 120 mg capsule,extended release take 1 capsule by oral route every day at approximately the same time each day 120 MG - Active Rexulti 2 mg tablet take 1 tablet by oral route every day 2 MG - Active Saphris [address] 1 tablet by sublingual route every day under the tongue and allow to dissolve 5 MG - Active Remeron 30 mg tablet take 1 tablet by oral route every day before bedtime 30 MG - Active gabapentin 800 mg tablet take 1 tablet by oral route 3 times every day 800 MG - Active Zanaflex 4 mg tablet take 2 tablets by oral route at bedtime - Active Nishant-24 200 mg capsule,extended release take 1 capsule by oral route every day 200 MG - Active albuterol sulfate HFA 90 mcg/actuation aerosol inhaler inhale 2 puff by inhalation route every 4 - 6 hours as needed 180 MCG - Active SYMBICORT (unknown strength) inhale 2 puff by inhalation route 2 times every day in the morning and evening Not Available - Active Flonase Allergy Relief 50 mcg/actuation nasal spray,suspension spray 1 - 2 spray by intranasal route every day in each nostril as needed 50-100 MCG - Active ipratropium 0.5 mg-albuterol 3 mg (2.5 mg base)/3 mL nebulization soln inhale 3 milliliter by nebulization route 6 times every day 3 milliliter - Active montelukast 10 mg tablet take 1 tablet by oral route every day in the evening 10 MG - Active Procedures Procedure Date OFFICE/OUTPATIENT VISIT, EST OFFICE/OUTPATIENT VISIT, EST OFFICE/OUTPATIENT VISIT, EST OFFICE/OUTPATIENT VISIT, EST OFFICE/OUTPATIENT VISIT, EST ROUTINE VENIPUNCTURE OFFICE/OUTPATIENT VISIT, EST GLYCOSYLATED HEMOGLOBIN TEST OFFICE/OUTPATIENT VISIT, EST ROUTINE VENIPUNCTURE OFFICE/OUTPATIENT VISIT, EST OFFICE/OUTPATIENT VISIT, EST OFFICE/OUTPATIENT VISIT, EST OFFICE/OUTPATIENT VISIT, EST Limited Oral Eval Bitewig-single Film Intraoral-periapical 1st Film 4 IMMUNIZATION ADMIN FLU VACCINE, 3 YRS & >, IM FLU VACCINE, 3 YRS & >, IM PNEUMOCOCCAL VACCINE OFFICE/OUTPATIENT VISIT, EST Advance Directives Directive Yes / No Effective Date File Name No Information Encounters Encounter Description Practice Location Reason(s) For Visit Diagnoses Date Provider Providers Copied on Encounter [facility], [address], [place], [id number] , [place] tel: [phone] [facility] No Information 2 Visci DO Josafat. [address], [place], [id number] , [place]. tel: [phone] OFFICE/OUTPA TIENT VISIT, [facility], [address], [place], [id number] , [place] tel: [phone] [facility] Med Refills (chief complaint) Body mass index [BMI] 45.0-49.9, adultCOPD mixed typeEssential hypertensionLocalize d swelling, mass and lump, right lower limb 1 [facility] DO Max. [address], [place], [id number] , [place]. tel: [phone] [facility], [address] [place] [address], [id number] , [place] tel: [phone] [facility] No Information 1 [facility] DO Max. [address], [place], [id number] , [place]. tel: [phone] [facility], [address], [place], [id number] , [place] tel: [phone] [facility] No Information 1 [facility] DO Max. [address], [place], [id number] , [place]. tel: [phone] [facility], [address] [place] [address], [id number] , [place] tel: [phone] [facility] No Information 1 [facility] DO Max. [address] [place] [address], [id number] , [place]. tel: [phone] OFFICE/OUTPA TIENT VISIT, [facility], [address], [place], [id number] , [place] tel: [phone] [facility] Medication (chief complaint)N europathy (chief complaint) NeuropathyBody mass index [BMI]40.0-44.9, adult Oct- 1 [facility]. [address], [place], [id number] , [place]. tel: [phone] OFFICE/OUTPA TIENT VISIT, [facility], [address], [place], [id number] , [place] tel: [phone] [facility] check up (chief complaint) Body mass index [BMI]40.0-44.9, adultChronic low back pain, unspecified back pain laterality, unspecified whether sciatica presentLocalized swelling, mass and lump, right lower limbRash 1 [facility]. [address], [place], [id number] , [place]. tel: [phone] OFFICE/OUTPA TIENT VISIT, [facility], [address] [place] [address], [id number] , [place] tel: [phone] [facility] check up (chief complaint) Body mass index [BMI]40.0-44.9, adultPhlebitisType 2 diabetes mellitus with diabetic neuropathy, with long-term current use of insulinRash 1 [facility]. [address], [place], [id number] , [place]. tel: [phone] [facility], [address] [place] [address], [id number] , [place] tel: [phone] [facility] No Information 1 [facility] DO Li. [address] [place] [address], [id number] , [place]. tel: [phone] OFFICE/OUTPA TIENT VISIT, [facility], [address] [place] [address], [id number] , [place] tel: [phone] [facility] check up (chief complaint)d iabetes (chief complaint) Body mass index [BMI] 45.0-49.9, adultRashType 2 diabetes mellitus with diabetic neuropathy, with long-term current use of insulinWound of right lower extremity, subsequent encounter 1 [facility]. [address], [place], [id number] , [place]. tel:[phone] [facility], [address] [place] [address], [id number] , [place] tel:[phone] [facility] No Information 1 [facility] Max. [address] [place] [address], [id number] , [place]. tel:[phone] OFFICE/OUTPA TIENT VISIT, [facility], [address] [place] [address], [id number] , [place] tel:[phone] [facility] f/u pain/lab draw (chief complaint)R ramiro (chief complaint) Serum potassium elevatedBody mass index [BMI] 45.0-49.9, adultRash 1 [facility]. [address] [place] [address], [id number] , [place]. tel:[phone] OFFICE/OUTPA TIENT VISIT, [facility], [address] [place] [address], [id number] , [place] tel:[phone] [facility] med refill (chief complaint)d iabetes (chief complaint) Type 2 diabetes mellitus with diabetic neuropathy, with long-term current use of insulinNeuropathySer um potassium elevatedWound of right lower extremity, subsequent encounter 1 [facility]. [address] [place] [address], [id number] , [place]. tel:[phone] OFFICE/OUTPA TIENT VISIT, [facility], [address] [place] [address], [id number] , [place] tel:[phone] [facility] ER follow up (chief complaint) Body mass index [BMI]40.0-44.9, adultType 2 diabetes mellitus with diabetic neuropathy, with long-term current use of insulinPhlebitis 1 [facility] Max. [address] [place] [address] [place], [id number] , [place]. tel: [phone] OFFICE/OUTPA TIENT VISIT, [facility], [address] [place] [address], [id number] , [place] tel: [phone] [facility] f/u right leg (chief complaint)M usculoskele reinaldo pain (chief complaint) Essential hypertensionType 2 diabetes mellitus with diabetic neuropathy, with long-term current use of insulinMixed hyperlipidemiaLocali zed swelling, mass and lump, right lower limb 1 [facility] DO Max. [address] [place] [address], [id number] , [place]. tel: [phone] OFFICE/OUTPA TIENT VISIT, [facility], [address] [place] [address], [id number] , [place] tel: [phone] [facility] f/u leg pain (chief complaint)M usculoskele reinaldo pain (chief complaint) Body mass index [BMI] 45.0-49.9, adultLocalized swelling, mass and lump, right lower limb 1 [facility] DO Max. [address] [place] [address], [id number] , [place]. tel: [phone] OFFICE/OUTPA TIENT VISIT, [facility], [address] [place] [address], [id number] , [place] tel: [phone] [facility] est care (chief complaint)M usculoskele reinaldo pain (chief complaint)d iabetes (chief complaint) Posterior right knee painEssential hypertensionCOPD mixed typeMixed hyperlipidemiaInsomn ia, unspecified typeNeuropathyType 2 diabetes mellitus with diabetic neuropathy, with long-term current use of insulinLong term (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Hypothyroidis m, unspecified typeChronic low back pain, unspecified back pain laterality, unspecified whether sciatica presentOther chronic pain 1 [facility] DO Max. [address], [place], [id number] , [place]. tel: [phone] [facility], [address], [place], [id number] , [place] tel: [phone] [facility] Dental examination 4 John DMD July. [address], [place], [id number] , [place]. tel: [phone] OFFICE/OUTPA TIENT VISIT, EST [facility], [address], [place], [id number] , [place] tel: [phone] [facility] Influenza Vaccine 3 Visci DO Josafat. [address], [place], [id number] , [place]. tel: [phone] Family History Family Member Type Diagnosis Age At Onset No Information Immunizations Vaccine Date Status Comments Pneumo (2 yrs or older)(PPV) administered Source: New Immunization Record Flu (split) (3 yrs or older) administered Source: New Immunization Record Payers Payer name Insurance type Covered constitution party ID Authorlopeza tiflakito(s) Medicaid [facility] [id number] Social History Type Description Quantity Date Captured Comments Alcohol Use Details Unknown Caffeine Use Details Unknown Tobacco Use Status No Information Smoking Status No Information Sex Female Sexual Orientation Straight or heterosexual Gender Identity Female Chief Complaint And Reason For Visit No Information Reason For Referral Reason For Referral No Information Plan Of Treatment Date Type Action Status Goal Colonoscopy. Due on due Goal Foot exam. Due on due Goal FOBT. Due on due Goal Dental exam. Due on due Goal ECG. Due on due Goal Pneumococcal vaccine due Goal Mammogram. Due on due Goal Urine microalbumin. Due on due Goal Tdap. Due on due Goal Urinalysis. Due on due Goal Depression screening. Due on due Goal Hemoglobin A1C. Due on due Goal Influenza Vaccine. Due on due Goal Zoster vaccine (). Due on due Goal Diabetes screening. Due on due Goal Dilated eye exam. Due on Jun due Goal Diabetes screening. Due on due Goal Zoster vaccine (). Due on due Goal Foot exam. Due on due Goal Dilated eye exam. Due on Feb due Goal Tdap. Due on due Goal Mammogram. Due on due Goal Colonoscopy. Due on due Goal Depression screening. Due on due Goal Pneumococcal vaccine due Goal Urinalysis. Due on due Goal Urine microalbumin. Due on due Goal FOBT. Due on due Goal Influenza Vaccine. Due on due Goal Dental exam. Due on due Goal ECG. Due on due Goal Hemoglobin A1C. Due on due Goal Dietary management education , guidance, and counseling completed Goal FOBT. Due on due Goal Zoster vaccine (). Due on due Goal Diabetes screening. Due on due Goal Tdap. Due on due Goal Dilated eye exam. Due on Jan due Goal Depression screening. Due on due Goal Urine microalbumin. Due on O due Goal Urinalysis. Due on due Goal Colonoscopy. Due on due Goal Dental exam. Due on due Goal Hemoglobin A1C. Due on due Goal Influenza Vaccine. Due on due Goal Pneumococcal vaccine due Goal Mammogram. Due on due Goal Foot exam. Due on due Goal ECG. Due on due Goal Colonoscopy. Due on due Goal Urine microalbumin. Due on due Goal Hemoglobin A1C. Due on due Goal Depression screening. Due on due Goal Zoster vaccine (1st). Due on due Goal Urinalysis. Due on due Goal Influenza Vaccine. Due on due Goal Diabetes screening. Due on due Goal FOBT. Due on due Goal Foot exam. Due on due Goal Dental exam. Due on due Goal ECG. Due on due Goal Mammogram. Due on due Goal Pneumococcal vaccine due Goal Tdap. Due on due Goal Dilated eye exam. Due on Jan due Goal Mammogram. Due on due Goal Dental exam. Due on due Goal Dilated eye exam. Due on Jan due Goal FOBT. Due on due Goal ECG. Due on due Goal Depression screening. Due on due Goal Tdap. Due on due Goal Pneumococcal vaccine due Goal Urine microalbumin. Due on O due Goal Foot exam. Due on due Goal Diabetes screening. Due on due Goal Urinalysis. Due on due Goal Colonoscopy. Due on due Goal Influenza Vaccine. Due on due Goal Zoster vaccine (). Due on due Goal Hemoglobin A1C. Due on due Goal Influenza Vaccine. Due on due Goal Dental exam. Due on due Goal Pneumococcal vaccine due Goal FOBT. Due on due Goal Dilated eye exam. Due on Jan due Goal Urinalysis. Due on due Goal Colonoscopy. Due on due Goal Foot exam. Due on due Goal Urine microalbumin. Due on due Goal Hemoglobin A1C. Due on due Goal Depression screening. Due on due Goal Mammogram. Due on due Goal Tdap. Due on due Goal Zoster vaccine (). Due on due Goal Diabetes screening. Due on due Goal ECG. Due on due Goal Dietary management education , guidance, and counseling completed Goal Pneumococcal vaccine due Goal Influenza Vaccine. Due on due Goal Urinalysis. Due on due Goal FOBT. Due on due Goal Hemoglobin A1C. Due on due Goal Depression screening. Due on due Goal Dilated eye exam. Due on Dec due Goal ECG. Due on due Goal Dental exam. Due on due Goal Colonoscopy. Due on due Goal Diabetes screening. Due on due Goal Foot exam. Due on due Goal Zoster vaccine (). Due on due Goal Tdap. Due on due Goal Urine microalbumin. Due on S due Goal Mammogram. Due on due Goal Dietary management education , guidance, and counseling completed Goal Zoster vaccine (). Due on due Goal Dilated eye exam. Due on Nov due Goal Depression screening. Due on due Goal Hemoglobin A1C. Due on due Goal Dental exam. Due on due Goal Tdap. Due on due Goal Foot exam. Due on due Goal Influenza Vaccine. Due on due Goal Urinalysis. Due on due Goal FOBT. Due on due Goal Mammogram. Due on due Goal Pneumococcal vaccine due Goal Diabetes screening. Due on A due Goal Urine microalbumin. Due on A due Goal ECG. Due on due Goal Colonoscopy. Due on due Goal Dietary management education , guidance, and counseling completed Goal Influenza Vaccine. Due on due Goal Hemoglobin A1C. Due on due Goal ECG. Due on due Goal FOBT. Due on due Goal Dilated eye exam. Due on Nov due Goal Pneumococcal vaccine due Goal Zoster vaccine (). Due on due Goal Tdap. Due on due Goal Urine microalbumin. Due on A due Goal Depression screening. Due on due Goal Diabetes screening. Due on A due Goal Mammogram. Due on due Goal Urinalysis. Due on due Goal Foot exam. Due on due Goal Colonoscopy. Due on due Goal Dental exam. Due on due Goal Foot exam. Due on due Goal FOBT. Due on due Goal Dental exam. Due on due Goal Colonoscopy. Due on due Goal Urinalysis. Due on due Goal Depression screening. Due on due Goal ECG. Due on due Goal Tdap. Due on due Goal Influenza Vaccine. Due on due Goal Zoster vaccine (). Due on due Goal Mammogram. Due on due Goal Urine microalbumin. Due on A due Goal Pneumococcal vaccine due Goal Diabetes screening. Due on A due Goal Hemoglobin A1C. Due on due Goal Dilated eye exam. Due on Nov due Goal Dietary management education , guidance, and counseling completed Goal Urine microalbumin. Due on due Goal Influenza Vaccine. Due on due Goal Hemoglobin A1C. Due on due Goal Pneumococcal vaccine due Goal Dental exam. Due on due Goal Dilated eye exam. Due on Oct due Goal Mammogram. Due on due Goal ECG. Due on due Goal Zoster vaccine (). Due on due Goal Tdap. Due on due Goal Colonoscopy. Due on due Goal FOBT. Due on due Goal Diabetes screening. Due on due Goal Foot exam. Due on due Goal Depression screening. Due on due Goal Urinalysis. Due on due Goal Hemoglobin A1C. Due on due Goal Dilated eye exam. Due on Oct due Goal Mammogram. Due on due Goal Pneumococcal vaccine due Goal ECG. Due on due Goal Urine microalbumin. Due on due Goal Foot exam. Due on due Goal Dental exam. Due on due Goal Diabetes screening. Due on due Goal Zoster vaccine (). Due on due Goal FOBT. Due on due Goal Influenza Vaccine. Due on due Goal Urinalysis. Due on due Goal Depression screening. Due on due Goal Colonoscopy. Due on due Goal Tdap. Due on due Goal Dietary management education , guidance, and counseling completed Goal Zoster vaccine (). Due on due Goal Dental exam. Due on due Goal Urine microalbumin. Due on due Goal FOBT. Due on due Goal Foot exam. Due on due Goal Pneumococcal vaccine due Goal Hemoglobin A1C. Due on due Goal Tdap. Due on due Goal Influenza Vaccine. Due on due Goal Urinalysis. Due on due Goal Mammogram. Due on due Goal Depression screening. Due on due Goal Colonoscopy. Due on due Goal Diabetes screening. Due on due Goal Dilated eye exam. Due on Oct due Goal ECG. Due on due Goal Influenza Vaccine. Due on due Goal Urinalysis. Due on due Goal Pneumococcal vaccine due Goal Diabetes screening. Due on due Goal Depression screening. Due on due Goal Dilated eye exam. Due on Sep due Goal ECG. Due on due Goal Tdap. Due on due Goal Zoster vaccine (). Due on due Goal Dental exam. Due on due Goal FOBT. Due on due Goal Foot exam. Due on due Goal Mammogram. Due on due Goal Urine microalbumin. Due on due Goal Colonoscopy. Due on due Goal Dietary management education , guidance, and counseling completed Goal Dental exam. Due on due Goal Colonoscopy. Due on due Goal Foot exam. Due on due Goal Diabetes screening. Due on due Goal Mammogram. Due on due Goal Urine microalbumin. Due on due Goal Influenza Vaccine. Due on due Goal FOBT. Due on due Goal Pneumococcal vaccine due Goal Urinalysis. Due on due Goal Dilated eye exam. Due on Sep due Goal Tdap. Due on due Goal ECG. Due on due Goal Depression screening. Due on due Goal Zoster vaccine (). Due on due Goal FOBT. Due on due Goal Foot exam. Due on due Goal Tdap. Due on due Goal Urinalysis. Due on due Goal Mammogram. Due on due Goal Zoster vaccine (). Due on due Goal Urine microalbumin. Due on due Goal Lipid panel. Due on due Goal Dilated eye exam. Due on August due Goal Colonoscopy. Due on due Goal Diabetes screening. Due on due Goal Depression screening. Due on due Goal Dental exam. Due on due Goal Hemoglobin A1C. Due on due Goal Influenza Vaccine. Due on due Goal Pneumococcal vaccine due Goal ECG. Due on due Goal Dietary management education , guidance, and counseling completed Goal Tobacco cessation counseling completed Goal Foot exam. Due on due Goal Diabetes screening. Due on due Goal Pneumococcal vaccine due Goal Dilated eye exam. Due on August due Goal Hemoglobin A1C. Due on due Goal Dental exam. Due on due Goal Urine microalbumin. Due on due Goal Lipid panel. Due on due Goal Urinalysis. Due on due Goal ECG. Due on due Goal Zoster vaccine (). Due on due Goal FOBT. Due on due Goal Mammogram. Due on due Goal Influenza Vaccine. Due on due Goal Tdap. Due on due Goal Depression screening. Due on due Goal Colonoscopy. Due on 021 due Goal Influenza Vaccine. Due on due Goal Pneumococcal Vaccine. Due on due Referral Ordered: Vascular Surgery (related to Phlebitis) [id number] Ordered: Duplex Scan LE Unilat, Vascular [id number] Ordered: Referrals: Vascular Surgery [id number] Ordered: Duplex Scan BLE, Vascular [id number] Ordered: UNILATERAL NON-INVASIVE LOWER EXTREMITY VENOUS STUDY Right [id number] Ordered: UNILATERAL NON-INVASIVE LOWER EXTREMITY VENOUS STUDY [id number] Ordered: X-Ray Exam Of Knee 4 Or More Views Right ordered History Of Present Illness Encounter Date Complaint History Of Prese nt Illness Med Refills Pt here today fo r medication refills. Pt given letter today informing him Dr. Johnson leaving our office & last day was 03/06. No medications or apts will be made after this day Pt signed letter and verbalized understanding. OARRS completed, last filled Gabapentin 02/[address] [place] & [place] 01/16TGrodian COLMENARESN ,above was reviewed and agreed with MLP Medication Patient states t hat he placed her anxiety medication prescribed by tima gibbs into her morning medications and it was causing her to hallucinate . Pt reports that her bilateral lower extremities have been increasingly painful rated 10/10 on the numeric scale, described as constant, achy , and sharp. No other complaints. Ania GILLIAM Neuropathy Onset was gradua l. Severity level is severe. Location of numbness is right lower leg. The problem occurs constantly. Gait is characterized as normal. The context includes diabetes. No aggravating factors. There are no relieving factors. Associated symptoms include dysarthria, motor weakness, nocturnal paresthesias, paresthesia, tingling and tremors. Pertinent negatives include agitation, ataxia, bladder incontinence, confusion, dizziness, dysphagia, falling, fever, hallucinations, headache, neck stiffness, restlessness and vertigo. check up Patient is here today for medication, bilateral lower leg swelling/ pain. Patient describes the bilateral lower leg pain as dull and constant. No other complaints. Ania GILLIAMThe rash on the legs in is also changing in appearance again, and her legs swell a lot more at night check up Patient states t hat she had tremors that she thinks was due to her metformin dosage change. Bilateral leg redness and swelling, pt denies any history of DVT. No other complaints. Gopalt states she is just not doing well, and feels bad all the time and her leg are very swollen and painful at the end of every day [facility] diabetes The problem is g etting worse. Risk factors include: obesity and over age [age] years old. Patient is compliant with using medication, follow-up, and using education materials. Managing with: Oral medications. Comorbidity: Hypertension. Associated symptoms include: frequent infections. Pertinent negatives include blurred vision, burning of extremities, chest pain, diarrhea, urinary frequency, heartburn and hypoglycemic episodes. Additional information: Pt states her sugars are getting high at bedtime but good all the rest of the day. check up Patient is here for a medication refill. Patient would like the doctor to look at right leg rash. No other complaints. Ania GILLIAM f/u pain/lab draw Pt here for f/ u pain and lab draw. Pt states her pain is doing better. Pt c/o rash on b/l LE, pt states it has been there about 12 weeks. Pt also c/o swelling in R foot at night, denies injury. Pt requesting refills on her Vitamin D. Pt denies any other issues or concerns. TAWANA ÁlvarezVenipuncture successful on first attempt in L AC, pt tolerated well. TAWANA Álvarez Rash The patient pres ents for Rash. This episode began suddenly and has lasted several months. Affected area(s) include both legs. The patient describes the affected area(s) as itchy and red. The symptoms are not associated with contact with chemicals, contact with plants and new perfume. Denies aggravating factors. Denies relieving factors. Associated symptoms include cracking, crusting, edema, erythema (skin) and pruritus. Pertinent negatives include bleeding, myalgia and pharyngitis. diabetes The problem is g etting worse. Risk factors include: obesity and over age [age] years old. Patient is compliant with using medication, follow-up, and using education materials. Managing with: Oral medications., Avg 140. Comorbidity: Hypertension. Associated symptoms include: burning of extremities, frequent infections, urinary frequency and slow healing wounds/sores. Pertinent negatives include blurred vision, chest pain, constant hunger, dental disease, dyspnea, heartburn and polydipsia. med refill Pt here today fo r med refill. Pt states she needs refills on [place] and Vitamin D. Pt states that she no longer sees Dr. Duradn for her insulin anymore. Inquiring if provider today will take over. Pt A1C in office today is 6.1. Pt c/o right lower leg abrasion, states it is not healing and seems to be getting worse. Denies pain or drainage. Pt also inquires about rechecking her potassium today. TAWANA Adkins ER follow up Patient is follo wing up regarding her ER visit last week. patient states the Doctor told her that her potassium level was too high. She states that her R leg still feels tight. No other complaints at this time. TAWANA Dyson.Pt states except for the leg pain she is feeling better.Venipunture successful on first attempt in R AC, pt tolerated well. TAWANA Álvarez ,above was reviewed and agreed with [facility] Musculoskeletal pain It occurs c onstantly and is stable. Location: right knee (medial). The pain radiates to the right foot. The pain is aching. Context: there is no injury. The pain is aggravated by movement, walking and standing. There are no relieving factors. Associated symptoms include bruising, joint tenderness and limping. Pertinent negatives include crepitus, decreased mobility, difficulty initiating sleep, joint instability, locking and popping. Hand Dominance: right. f/u right leg Pt here today fo r f/u on right leg pain. Pt states she had her U/S orders performed at [facility] last Thursday. Reports are in pt's chart. Pt states that nothing is changed with her leg/pain. No worsening symptoms, nothing improved. Pt states she will need a refill on her [place] by Thursday. TAWANA Adkins f/u leg pain Pt here for f/u leg pain. Pt c/o R lower leg pain and numbness and tingling in her R toes and side of her foot, pt states her leg feels tight at times. Pt states she does have some swelling at night but no swelling noted today. Pt denies any other issues or concerns. TAWANA Álvarez Musculoskeletal pain Severity le zoey is moderate. It occurs intermittently and is fluctuating. Location: knee (medial). The pain radiates to the right foot. The pain is aching and throbbing. Context: there is no injury. There are no aggravating factors. The pain is relieved by rest. Associated symptoms include decreased mobility, joint tenderness and swelling. Pertinent negatives include bruising, crepitus, difficulty initiating sleep, joint instability, locking, numbness, popping, spasms and weakness. Hand Dominance: right. est care Pt here to [facility]. Pt c/o R LE pain and swelling for last 5 weeks, denies injury. TAWANA Álvarez Musculoskeletal pain Onset: sudd en. Severity level is moderate. It occurs constantly and is fluctuating. Location: right knee (lateral). The pain radiates to the right foot. The pain is burning and piercing. Context: there is an injury. The pain is aggravated by sitting and standing. The pain is relieved by elevation and rest. Associated symptoms include decreased mobility, joint tenderness, limping, nocturnal pain and swelling. Pertinent negatives include bruising, crepitus, difficulty initiating sleep, joint instability, locking, nocturnal awakening, numbness and spasms. diabetes The problem is s table. Risk factors include: obesity and over age [age] years old. Patient is compliant with using medication, follow-up, and using education materials. Managing with: Oral medications. Comorbidity: Hypertension. Associated symptoms include: burning of extremities. Pertinent negatives include chest pain, diarrhea, foot ulcers and heartburn. Functional Status Date Functional Assessmen t No Information Instructions Date Instruction Additional Infor shaion Giving encouragement to exercise Related to Body mass index [BMI] 45.0-49.9, adult Dietary management e ducation, guidance, and counseling Related to Body mass index [BMI] 45.0-49.9, adult Giving encouragement to exercise Related to Body mass index [BMI] 40.0-44.9, adult Dietary management e ducation, guidance, and counseling Related to Body mass index [BMI] 40.0-44.9, adult Giving encouragement to exercise Related to Body mass index [BMI]40.0-44.9, adult Dietary management e ducation, guidance, and counseling Related to Body mass index [BMI]40.0-44.9, adult Giving encouragement to exercise Related to Body mass index [BMI]40.0-44.9, adult Dietary management e ducation, guidance, and counseling Related to Body mass index [BMI]40.0-44.9, adult Giving encouragement to exercise Related to Body mass index [BMI] 45.0-49.9, adult Dietary management e ducation, guidance, and counseling Related to Body mass index [BMI] 45.0-49.9, adult Giving encouragement to exercise Related to Body mass index [BMI] 45.0-49.9, adult Dietary management e ducation, guidance, and counseling Related to Body mass index [BMI] 45.0-49.9, adult Giving encouragement to exercise Related to Body mass index [BMI]40.0-44.9, adult Dietary management e ducation, guidance, and counseling Related to Body mass index [BMI]40.0-44.9, adult Giving encouragement to exercise Related to Body mass index [BMI] 45.0-49.9, adult Dietary management e ducation, guidance, and counseling Related to Body mass index [BMI] 45.0-49.9, adult Assessments Type Assessment Date No Information Patient Care Teams Name Effective Dates (start - stop) Status Members No Information
--- OUTSIDE RECORDS SUMMARY | 2025-02-20 10:01 | XMS_ITS | Continuity of Care Document ---
Author Organization [facility] Address [address] [place] [address] Phone Care Team Providers Care Doper Name Role Phone Peri Tyson DO Primary Care Provider Sugey Cummins NP-C Attending Provider [phone] Truong Ward MD Attending Provider Roxane Bills MD Attending Provider Chan Santana DO Emergency Provider [phone] Erin Guevara MD Emergency Provider Margarito Rjaan MD Admit Provider Margarito Rajan MD Other Provider Guillermo Oleary II DO Other Provider Louis Ellsworth MD Attending Provider Louis Ellsworth MD Other Provider Peri Tyson DO Attending Provider Brenden Groves DO Referring Provider [phone] Care Teams Patient Care Team Team Status: Active Member Role/Relationship Status Dates Peri Tyson DO Primary Care Provider Active Visit Care Team Team Status: Inactive Member Role/Relationship Status Dates Peri Tyson DO Primary Care Provider Active Start: November 22, 2024 End: November 22nilam Cummins , PLATE SHEAR OPERATOR-CAttending ProviderActiveStart: November 22, 2024 End: November 22, 2024 Visit Care Team Team Status: Inactive Member Role/Relationship Status Dates Peri Tyson DO Primary Care Provider Active Start: December 06, 2024 End: December 06nilam Cummins , PLATE SHEAR OPERATOR-CAttending ProviderActiveStart: December 06, 2024 End: December 06, 2024 Visit Care Team Team Status: Active Member Role/Relationship Status Dates Peri Tyson DO Primary Care Provider Active Start: December 07, 2024 Truong Ward , JEREMIAHttending ProviderActiveStart: December 07, 2024 Visit Care Team Team Status: Inactive Member Role/Relationship Status Dates Peri Tyson DO Primary Care Provider Active Start: December 21, 2024 End: December 21enrique Bills , JEREMIAHttending ProviderActiveStart: December 21, 2024 End: December 21, 2024 Visit Care Team Team Status: Inactive Member Role/Relationship Status Dates Peri Tyson DO Primary Care Provider Active Start: December 26, 2024 End: December 26, 2024Chan Santana DOEmergenbijan ProviderActiveStart: December 26, 2024 End: December 26, [...] Start: January 18, 2025 End: January 18my JEREMIAH Billsttending ProviderActiveStart: January 18, 2025 End: January 18, 2025 Visit Care Team Team Status: Inactive Member Role/Relationship Status Dates Peri Tyson DO Primary Care Provider Active Start: February 08, 2025 End: February 08Rashid Sherman ProviderActiveStart: February 08, 2025 End: February 08, 2025 Visit Care Team Team Status: Inactive Member Role/Relationship Status Dates Peri Tyson DO Primary Care Provider Active Start: February 10, 2025 End: February 10, 2025Marko Miranda ProviderActiveStart: February 10, 2025 End: February 10, 2025 Visit Care Team Team Status: Inactive Member Role/Relationship Status Dates Peri Tyson DO Primary Care Provider Active Start: February 13, 2025 End: February 13, 2025Marko Miranda ProviderActiveStart: February 13, 2025 End: February 13, 2025 Patient Care Team Team Status: Inactive Member Role/Relationship Status Dates Peri Tyson DO Primary Care Provider Active Start: February 20, 2025 End: February 20nilam Cummins NP-CAttending ProviderActiveStart: February 20, 2025 End: February 20, 2025 Visit Care Team Team Status: Active Member Role/Relationship Status Dates Roxane Bills MD Attending Provider Active Start: February 20, 2025 [facility] ProviderActiveStart: February 20, 2025 Abe Miranda Care ProviderActiveStart: February 20, 2025 Chief Complaint and Reason for Visit Chief Complaint Admit Date tox check November 22, 2024 11 :23am Follow Up Seen upstairs December 06 11:11am BH December 07, 2024 8: 42am f/u December 21, 2024 8:30am ABN Labs December 26, 2024 12:59pm trouble walking, shaking December 27, 2024 8:56am f/u January 18, 2025 11 :13am Initial MCAWV February 10, 2025 8 :14am E03.9 February 13, 2025 1 0:17am 2 week f/u February 20, 2025 1:17pm Abnormal SPEP February 20, 2025 1:18pm Reason for Visit Admit Date Cancer related pain November 22, 2024 11 :23am Encounter for chemotherapy management Au nate 2024 11:23am History of iron deficiency anemia November 22, 2024 11:23am IgG myeloma November 22, 2024 11 :23am Bipolar 1 disorder November 22, 2024 11 [...] 45.0-49.9, ad ult November 22, 2024 11:23am Pruritic erythematous rash November 22, 2024 11:23am Venous stasis dermatitis of both lower e xtremities November 22, 2024 11:23am Cancer related pain December 06, 2024 11 :11am Encounter for chemotherapy management Au nate 2024 11:11am History of iron deficiency anemia December 06, 2024 11:11am IgG myeloma December 06, 2024 11 :11am Bipolar 1 disorder December 06, 2024 11 [...] 45.0-49.9, ad ult December 06, 2024 11:11am Pruritic erythematous rash December 06, 2024 11:11am Venous stasis dermatitis of both lower e xtremities December 06, 2024 11:11am Cancer related pain December 21, 2024 8:30am Encounter for chemotherapy management Se pt2024 8:30am History of iron deficiency anemia Septem 2024 8:30am IgG myeloma December 21, 2024 8:30am Bipolar 1 disorder December 21, 2024 8:30am COPD (chronic obstructive pulmonary dise ase) December 21, 2024 8:30am 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 December 21, 2024 8:30am Hypertension December 21, 2024 8:30am CKD (chronic kidney disease) stage 3, GF R 30-59 ml/min December 21, 2024 8:30am Fever of unknown origin (FUO) December 21, 2024 8:30am Morbid obesity with BMI of 45.0-49.9, ad ult December 21, 2024 8:30am Pruritic erythematous rash December 8:30am Venous stasis dermatitis of both lower e xtremities December 21, 2024 8:30am BMI 40.0-44.9, adult December 27 8:56am Encounter for chemotherapy management Se ptember 2024 8:56am IgG myeloma December 27, 2024 8:56am On home oxygen therapy December 27, 8:56am Stage 3b chronic kidney disease Septembe r 2024 8:56am Thrombocytopenia December 27, 2024 8:56am Type 2 diabetes mellitus wit h diabetic neuropathy, unspecified December 27, 2024 8:56am Bipolar 1 disorder December 27, 2024 8:56am COPD (chronic obstructive pulmonary dise ase) December 27, 2024 8:56am Hypertension December 27, 2024 8:56am TANYA (obstructive sleep apnea) December 27, 2024 8:56am Acute kidney injury superimposed on CKD December 27, 2024 8:56am Hypokalemia December 27, 2024 8:56am Neutropenia December 27, 2024 8:56am Neutropenic fever December 27, 2024 8:56am Pneumonia December 27, 2024 8:56am Acute ITP December 27, 2024 8:56am Cancer related pain January 18, 2025 11 :13am Encounter for chemotherapy management Oc tober 2024 11:13am History of iron deficiency anemia Octobe r 2024 11:13am IgG myeloma January 18, 2025 11 :13am Thrombocytopenia January 18, 2025 11 :13am Bipolar [...] 45.0-49.9, ad ult January 18, 2025 11:13am Pruritic erythematous rash January 18, 2025 11:13am Venous stasis dermatitis of both lower e xtremities January 18, 2025 11:13am Cancer related pain February 08, 2025 9 :06am Encounter for chemotherapy management Oc tober 2024 9:06am History of iron deficiency anemia Octobe r 2024 9:06am IgG myeloma February 08, 2025 9 :06am Thrombocytopenia February 08, 2025 9 :06am Bipolar 1 disorder February 08, 2025 9 :06am COPD (chronic obstructive pulmonary dise ase) February 08, 2025 9:06am 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 February 08, 2025 9:06am Hypertension February 08, 2025 9 :06am CKD (chronic kidney disease) stage 3, GF R 30-59 ml/min February 08, 2025 9:06am Morbid obesity with BMI of 45.0-49.9, ad ult February 08, 2025 9:06am Pruritic erythematous rash February 08, 2025 9:06am Venous stasis dermatitis of both lower e xtremities February 08, 2025 9:06am Hypothyroidism February 10, 2025 8 :14am Medicare annual wellness visit, initial February 10, 2025 8:14am Type 2 diabetes mellitus wit h diabetic neuropathy, unspecified February 10, 2025 8:14am Chronic hypercapnic respiratory failure February 10, 2025 8:14am Cancer related pain February 20, 2025 1:17pm Encounter for chemotherapy management No vember 2024 1:17pm History of iron deficiency anemia Novemb er 2024 1:17pm IgG myeloma February 20, 2025 1:17pm Thrombocytopenia February 20, 2025 1:17pm Bipolar 1 disorder February 20, 2025 1:17pm COPD (chronic obstructive pulmonary dise ase) February 20, 2025 1:17pm 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 February 20, 2025 1:17pm Hypertension February 20, 2025 1:17pm CKD (chronic kidney disease) stage 3, GF R 30-59 ml/min February 20, 2025 1:17pm Morbid obesity with BMI of 45.0-49.9, ad ult February 20, 2025 1:17pm Pruritic erythematous rash February 1:17pm Venous stasis dermatitis of both lower e xtremities February 20, 2025 1:17pm COPD (chronic obstructive pulmonary dise ase) February 20, 2025 1:18pm 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 February 20, 2025 1:18pm 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) February 20, 2025 1:18pm CKD (chronic kidney disease) stage 3, GF R 30-59 ml/min February 20, 2025 1:18pm Iron deficiency anemia February 20 1:18pm Bipolar disorder with depression Novembe r 2024 1:18pm Diabetes February 20, 2025 1:18pm Morbid obesity February 20, 2025 1:18pm Reason for Referral Type Reason(s) Provider Provider Contact Information P [facility] Address Start Date Previously scheduled appointment.Referral to gastroenterologistHistory of colonic polyps DiarrheaGloria Nyla García Phone: [phone] [place] [id number] scheduled appointment.Alia Sims MDWork Phone: [phone] [place] [id number] have been scheduled for a follow up appointment for the following date and time, please call to reschedule if needed.Nyla Miranda Phone: [phone] [facility] [id number] - Personal history of colon polyps, unspecified,R19.7 - Diarrhea, unspecifiedFPG GastroenterologyWork Phone: [phone] [address] [address] [address]24 Allergies, Adverse Reactions, Alerts Allergen Type Severity Reaction Last Updated Verified Status codeine Allergy Unknown Rash, itching January 5:44am Yes Active honey Allergy Unknown Hives, anaphylaxis Octobe r 2024 5:44am Yes Active morphine Allergy Unknown Gastrointestinal Upset Oc tober 2024 5:44am Yes Active tramadol Allergy Unknown Hallucinating, hallucinations February 10, 2025 5:44am Yes Active Social History Smoking Status Status Start Date End Date Date of Observa tion Never smoked tobacco (finding) February 10, 2025 6:45am Observation Status Observation Response Date of Response Legal Sex Female (finding) [facility] Social History Assessments Assessment Value Date Recorded SDOH Follow up December 29, 2024 8:03amQuestionAnswerDate RecordedHas the SDOH screening changed since admission?NSeptember 2024 8:03am Family History Relationship Condition Age at Onset Recorded Date/T [place] son Hypertension Unknown sisterHypertensionUnknownPolyp of colonUnknowngrandparentMalignant neoplasm of breastUnknowngrandparentLeukemiaUnknownbrotherDiabetes mellitusUnknownbrother Diabetes mellitusUnknownHypertensionUnknownbrotherHypertensionUnknownfather DeceasedUnknownfamily memberDeceasedUnknowngrandparentMalignant neoplasmUnknown LeukemiaUnknowngrandparentMalignant neoplasm of breastUnknownmotherDeceased UnknownsonHypertensionUnknownDiabetes mellitusUnknownsisterDiabetes mellitus UnknownHypertensionUnknownsisterHypertensionUnknown Problems Active Problems Problem Diagnosis/Recorded Date Onset Date Status C omments Arthritis of sacroiliac joint July 01, 2023 2:48pm Unkn own Active Stage 3b chronic kidney diseaseMarch 2023 2:48pmUnknownActiveLumbosacral spondylosis without myelopathyMarch 2023 2:48pmUnknownActiveMedicare annual wellness visit, initialOctober 2024 7:52amUnknownActiveOSA (obstructive sleep apnea)December 16, 2016 4:05amUnknownActiveLong term (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March 2023 2:48pmUnknownActiveType 2 diabetes mellitus with diabetic neuropathy, unspecifiedApril 2024 8:31amUnknown ActiveMorbid (severe) obesity due to excess caloriesApril 2024 8:30am UnknownActiveSymptomatic varicose veins of both lower extremitiesFebruary 2023 9:49amUnknownActiveTrochanteric bursitis of left hipNovember 2023 12:40pmUnknownActiveChronic hypercapnic respiratory failureSeptember 2016 4:03pmUnknownActiveChronic fatigueMarch 2023 2:48pmUnknownActive Degenerative joint disease of left hipJanuary 2024 8:58amUnknownActiveGait instabilityMarch 2023 2:48pmUnknownActiveDiarrheaJune 2019 7:50am UnknownActiveEncounter for chemotherapy managementJuly 2024 10:26amUnknown ActiveHypothyroidismApril 2023 8:40amUnknownActiveMajor depressive disorder with psychotic featuresSeptember 2016 10:36amUnknownActive NeuropathyFebruary 2023 9:12amUnknownActiveOther chronic painMarch 2023 2:48pmUnknownActiveCancer related painJune 2024 5:42pmUnknownActive Diabetic neuropathy associated with diabetes mellitus due to underlying conditionSeptember 2016 2:44pmUnknownActiveLumbar degenerative disc disease July 01, 2023 2:48pmUnknownActiveThrombocytopeniaSeptember 2024 2:30pm UnknownActiveVenous refluxJanuary 2023 8:27amUnknownActiveIgG myelomaJune 2024 5:33pmUnknownActiveMultiple fallsSeptember 2016 2:28pmUnknown ActiveBMI 40.0-44.9, adultApril 2024 8:30amUnknownActiveBipolar 1 disorder December 16, 2016 4:06amUnknownActiveHemosiderin pigmentation of skinApril 2021 9:58amUnknownActiveHistory of iron deficiency anemiaMay 2023 2:06pmUnknownActiveCOPD (chronic obstructive pulmonary disease)December 16, 2016 4:05amUnknownActivePeripheral edemaSeptember 2016 10:29amUnknown ActiveDegenerative joint disease of cervical and lumbar spineMay 2021 9:25pmUnknownActive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)August 16, 2021 9:21pmUnknownActiveOn home oxygen therapyJune 2019 7:53pqDlnxxtzCpginq4-6 L nasal cannulaGERD (gastroesophageal reflux disease)September 20, 2019 7:50amUnknownActiveDebilitySeptember 2016 10:34am UnknownActiveHypertensionSeptember 2016 4:08pmUnknownActiveMonoclonal gammopathyJune 2021 10:17amUnknownActiveIrritable bowel diseaseAugust 2022 12:12pmUnknownActiveInactive/Resolved Problems Problem Diagnosis/Recorded Date Onset Date Status C omments PETER (acute kidney injury) December 16, 2016 4:04am Unkno wn Resolved Ulcer of left lower legJanuary 2023 9:09amUnknownResolvedUTI (urinary tract infection)December 16, 2016 4:04amUnknownResolvedBreast cancer screening by mammogramApril 2023 8:44amUnknownResolvedTinea corporisOctober 2023 8:28amUnknownResolvedType 2 diabetes mellitus without complicationsMarch 2023 2:48pmUnknownResolvedDiabetesSeptember 2016 4:05amUnknown ResolvedMorbid obesitySeptember 2016 3:32pmUnknownResolvedKidney disease July 01, 2023 2:48pmUnknownResolvedCKD (chronic kidney disease) stage 3, GFR 30-59 ml/minSeptember 2016 4:03pmUnknownResolvedWound of left lower extremityApril 2023 8:41amUnknownResolvedFever of unknown origin (FUO) December 21, 2024 8:43amUnknownResolvedInflammationJanuary 2023 9:09am UnknownResolvedNeutropeniaSeptember 2024 2:30pmUnknownResolvedVenous stasis dermatitis of both lower extremitiesApril 2021 9:58amUnknown ResolvedNeutropenic feverSeptember 2024 2:49pmUnknownResolvedUlcer of right lower legJanuary 2023 9:09amUnknownResolvedRhabdomyolysisSeptember 2016 4:05amUnknownResolvedElevated troponinSeptember 2016 4:05am UnknownResolvedBipolar disorder with depressionOctober 2016 12:14pmUnknown ResolvedPruritic erythematous rashMay 2023 9:34amUnknownResolvedAcute kidney injury superimposed on CKDSeptember 2024 3:36pmUnknownResolvedIron deficiency anemiaJuly 2021 1:25pmUnknownResolvedAcute metabolic encephalopathySeptember 2016 2:28pmUnknownResolvedEpigastric painJune 2019 7:56amUnknownResolvedHallucinations, visualOctober 2016 12:14pm UnknownResolvedMorbid obesity with BMI of 45.0-49.9, adultApril 2023 8:42amUnknownResolvedSwelling of hand jointApril 2024 12:38pmUnknown ResolvedPneumoniaSeptember 2024 2:29pmUnknownResolvedVenous stasis ulcer limited to breakdown of skin without varicose veinsApril 2021 9:58am UnknownResolvedThyroid diseaseMarch 2023 2:48pmUnknownResolvedObesityMarch 2023 2:48pmUnknownResolvedChronic depressionMarch 2023 2:48pmUnknown ResolvedDehydrationSeptember 2016 1:34amUnknownResolvedHypokalemiaSeptember 2024 12:10pmUnknownResolvedHyperkalemiaJune 2020 5:22pmUnknown ResolvedAcute hyperkalemiaJune 2020 1:50pmUnknownResolvedHypomagnesemia December 16, 2016 4:05amUnknownResolved Medications Medication Status Dose Units Route Directions Qty Days Refills S tart Date Stop Date End Date Reason(s) Instructions Adherence Benzonatate 100 mg capsule Discontinued 100 MG PO Three times daily as needed for cough 30 1February 2023 12:00amMarch 2023 8:08amBenzonatate 100 mg capsule Discontinued0.ROUTE.BYBFBCS229Rqhzh 4th, 2024 8:08amApril 2023 11:18amTAKE 1 CAPSULE BY MOUTH THREE TIMES A DAY NEEDED FOR 5 DAYSAmlodipine 10 mg tablet Mhuakhjoeocs11SXGADfygdEbrrl 2023 12:00amMarch 2023 8:10amAmlodipine 10 mg tabletDiscontinued0.ROUTE.WJFLQRN553Tjmqk 2023 8:10amNovember 2023 1:05pmTAKE 1 TABLET BY MOUTH EVERY DAY FOR 90 DAYSCarboxymethylcellulose Sodium (Refresh Tears) 0.5 % tgswqUwpgntkqftcu1IPTXYSUK-OQXNHthbn daily as needed for dry eye(s)302March 2023 11:00pmJune 2023 11:17am Omeprazole 40 mg capsule,delayed release(DR/EC)Discontinued0.ROUTE.PMMACQY970 July 30, 2023 11:22amOctober 2023 6:37amTAKE 1 CAPSULE BY MOUTH EVERY DAY 30 MINUTES BEFORE MORNING MEAL FOR 90 DAYSBenzonatate 100 mg capsule Discontinued0.ROUTE.AUNWCIM535Edqly 2023 11:18amMay 2023 1:31pmTAKE 1 CAPSULE BY MOUTH THREE TIMES A DAY NEEDED FOR 5 DAYSBenzonatate 100 mg capsuleDiscontinued0.ROUTE.EWQECOH000Gta 2023 1:31pmJuly 2023 3:19pm TAKE 1 CAPSULE BY MOUTH THREE TIMES A DAY NEEDED FOR 5 DAYS Carboxymethylcellulose Sodium (Refresh Tears) 0.5 % dropsActive0.ROUTE.XSLJTCD31 Jun2023 11:[address] 2 DROPS INTO BOTH EYES TWICE DAILY NEEDED FOR DRY EYE(S)Complies with drug therapyFurosemide 40 mg tabletDiscontinued0.ROUTE .CGVGDVO6833Nshk 2023 6:57amNovember 2023 1:05pmTAKE 1.5 TABLETS BY MOUTH ONCE DAILYBenzonatate 100 mg capsuleDiscontinued0.ROUTE.LCXLNPR664Pdlq 2023 3:19pmJuly 2023 3:20pmTAKE 1 CAPSULE BY MOUTH THREE TIMES A DAY NEEDED FOR 5 DAYSBenzonatate 100 mg capsuleDiscontinued0.ROUTE.VZGIWPR052Ntfn 2023 3:20pmJune 2024 9:00amTAKE 1 CAPSULE BY MOUTH THREE TIMES A DAY NEEDED FOR 5 DAYSDicyclomine 20 mg zdtyszIbguncrcsuje73KWEGVsifl times daily 07818Vaeo 2023 3:57pmJuly 2023 3:59pmIrritable bowel syndrome Irritable bowel syndrome, unspecified ibsDicyclomine 20 mg tabletDiscontinued0.ROUTE.CEFDBHA7248Ghne 2023 3:59pm May 26, 2024 10:53amIrritable bowel syndrome Irritable bowel syndrome, unspecifiedTAKE 1 TABLET BY MOUTH THREE TIMES A DAY NEEDEDSucralfate 1 gram tabletDiscontinued0.ROUTE.HUCZRGM178Fqrg 2023 7:32amFebruary 2024 8:10amTAKE 1 TABLET BY MOUTH TWICE DAILY ON AN EMPTY STOMACHCarvedilol 25 mg tabletDiscontinued0.ROUTE.PAGUSNS6995Xrxs 2023 6:49amNovember 2023 1:05pmTAKE 1 TABLET BY MOUTH TWICE A DAY WITH FOOD FOR 90 DAYSCholecalciferol (Vitamin D3) 50 mcg (2,000 unit) capsuleDiscontinued0 .ROUTE.NRNAODN0831Cywqztibp 2023 1:28pmAugust 2024 8:53amTAKE 2 CAPSULES BY MOUTH EVERY DAYOmeprazole 40 mg capsule,delayed release(DR/EC) Discontinued0.ROUTE.XELGKFD979Rtkggrf 2023 6:36amApril 2024 7:09am TAKE 1 CAPSULE BY MOUTH EVERY DAY 30 MINUTES BEFORE MORNING MEAL FOR 90 DAYS Flash Glucose Sensor (Freestyle Alfredo 2 Sensor) kitActive0.Njgfd02Psvxkrl 2023 11:00pmType 2 diabetes mellitus without complication Type 2 diabetes mellitus without complicationsAs directedFurosemide 40 mg tablet Discontinued0.ROUTE.JTSFEUV7105Oxrhodlb 2023 1:05pmJune 2024 8:59am TAKE 1.5 TABLETS BY MOUTH ONCE DAILYCarvedilol 25 mg tabletDiscontinued0.ROUTE .GUWFENR6631Cszyuijc 2023 1:05pmJune 2024 8:31amTAKE 1 TABLET BY MOUTH TWICE A DAY WITH FOOD FOR 90 DAYSAmlodipine 10 mg tabletActive0.ROUTE .ARUATKU827Cfjuwwam 2023 1:05pmTAKE 1 TABLET BY MOUTH EVERY DAY FOR 90 DAYSComplies with drug therapyDuloxetine 60 mg capsule,delayed release(DR/EC) Discontinued0.ROUTE.SCJAWOU800Broociq 2024 8:03amOctober 2024 6:55am TAKE 1 CAPSULE BY MOUTH EVERY DAY FOR 90 DAYSSucralfate 1 gram tablet Discontinued0.ROUTE.NINPQIV272Kjyktinl 2024 8:10amMay 2024 8:25amTAKE 1 TABLET BY MOUTH TWICE DAILY ON AN EMPTY STOMACHDicyclomine 20 mg tablet Uaspodxbzdjc33KTGFGzcqf times daily as needed for abdominal ofod8898Lqyphrtx 2024 10:53amJuly 2024 7:34amIrritable bowel syndrome Irritable bowel syndrome, unspecifiedOmeprazole 40 mg capsule,delayed release(DR/EC)Active0.ROUTE.QJAOWIR884Tgaob 2024 7:09amTAKE 1 CAPSULE BY MOUTH EVERY DAY 30 MINUTES BEFORE MORNING MEAL FOR 90 DAYSUnknownSucralfate 1 gram tabletActive0.ROUTE.KYNFSHZ1661Gur2024 8:25amTAKE 1 TABLET BY MOUTH TWICE DAILY ON AN EMPTY STOMACHUnknownKetoconazole 2 % creamDiscontinued0.ROUTE .HGHPSFO742VqlSeptember 06, 2024 8:25amJune 2024 9:02amTinea corporis Tinea corporisAPPLY TOPICALLY TWICE DAILY FOR 14 DAYSOlopatadine 0.1 % drops Discontinued0.ROUTE.XYAUMKD470YlySeptember 06, 2024 8:26amJune 2024 9:02amINSTILL 1 DROP INTO AFFECTED EYE TWICE A DAYCarvedilol 25 mg tabletActive0.ROUTE.COMPLEX 1803June 2024 8:31amTAKE 1 TABLET BY MOUTH TWICE A DAY WITH FOOD FOR 90 DAYSComplies with drug therapyFurosemide 40 mg tabletActive0.ROUTE.BMBEXDD1126 October 17, 2024 6:42amTAKE 1.5 TABLETS BY MOUTH ONCE DAILYComplies with drug therapyDicyclomine 20 mg tabletActive0.ROUTE.LTIGMUS4585Picv 2024 7:34am Irritable bowel syndrome Irritable bowel syndrome, unspecifiedTAKE 1 TABLET THREE TIMES DAILY FOR IBS FOR 30 DAYSComplies with drug therapyLenalidomide (Revlimid) 25 mg capsule Okthmgbibsen05MFIWZyqki554Zcln 2024 11:00pmAugust 2024 12:57pmfor 21 days of 28 day cycle.swallow whole with glass of water; do not open, crush, chew , break, ordissolve.adult female not of reproductive potential auth#[id number] Magnesium Oxide 400 mg (241.3 mg magnesium) dnnrnrFtggra280KUVOUkvkv499Amakuv 2024 11:00pmUnknownLenalidomide (Revlimid) 25 mg gamibvgZzkgyntlgljw70LXXX Kocfi032Frwqhf 2024 12:56pmSeptember 2024 10:50amfor 21 days of 28 day cycle.swallow whole with glass of water; do not open, crush, chew , break, ordissolve.adult female not of reproductive potential auth#[id number] (Revlimid) 25 mg igzxzanXqswwohiprqy52LUJWYtgtc345Ugbxeskgp 2024 10:49am February 08, 2025 8:51amOn Hold: Resume on 02/07/25. Until resumed by heme/onc for 21 days of 28 day cycle.swallow whole with glass of water; do not open, crush, chew , break, ordissolve.adult female not of reproductive potential auth#[id number] 60 mg capsule,delayed release(DR/EC)Active0.ROUTE .MNLSPMJ478Lbwzpxf 2024 6:55amTAKE 1 CAPSULE BY MOUTH EVERY DAY FOR 90 DAYS UnknownLenalidomide 10 mg ocfcmoyUsbmieyaahml28KFJRYealh560Ocybjsl 2024 10:05amOctober 2024 10:36amIgG multiple myeloma Multiple myeloma not having achieved remissionswallow whole with glass of water; do not open, crush, chew , break, or dissolve Take day 1-14 every 28 day cycle ADULT FEMALE NOT OF REPRODUCTIVE POTENTIAL AUTH#[id number] (Revlimid) 10 mg jhqfthkExcllg23OJMURinss561Tnittjv 2024 11:00pmIgG multiple myeloma Multiple myeloma not having achieved remissionswallow whole with glass of water; do not open, crush, chew , break, or dissolve Take day 1-14 every 28 day cycle ADULT FEMALE NOT OF REPRODUCTIVE POTENTIAL AUTH#[id number] 10 mg rynflgZkekebnnuxfi9ILNGHJhrru at bedtime October 05, 2017 1:51pmJune 2024 10:18amCarvedilol 6.25 mg tablet Danlsbpxaroo53PSIVHcbkp dailyOctflaget [facility] hospital 2017 [facility]pm[facility] 3:07pm Nabumetone 750 mg RgdwzjHfsgfyktwvcp018PNYEZzaan dailyOctflaget memorial hospital 2017 11:00pm July 29, 2021 10:12amOxybutynin Chloride 10 mg Tablet Extended Release 24hr Wbehok85POQTGnuqq morningOctflaget memorial hospital 2017 11:00pmComplies with drug therapy Hydrocodone-Acetaminophen 5-325 mg ElbxgvFoubyl8IWIGMervj times daily as needed for Back PainOctflaget memorial hospital 2017 11:00pmComplies with drug therapyAmlodipine 5 mg PwnowyRmpujjicjnud82YPSZFtzqk morningOctflaget [facility]pm[facility] 2023 8:10amOmeprazole 40 mg Capsule,Delayed Release(Dr/Ec)Luerczurdtys93ILKCIjfpc morningOctflaget memorial hospital 2017 11:00pmApril 2023 11:22amNortriptyline 10 mg VoguehyNhubcnrasapz25VUQIJjdfs at bedtimeM[facility] 2017 11:00pmApril 2021 10:12amAllopurinol 300 mg MkesewUjymafpeugqr511TDCCNawhcZykhyup 2017 11:00pmApril 2021 10:13amTheophylline (Nishant-24) 200 mg Capsule,Extended Release 99fuAbechvpqfxxi597ORTXKgzqsQkahopd 13th, 2018 11:00pmMay 2021 9:26amConjugated Estrogens (Premarin) 0.3 mg TabletDiscontinued0.3MGPODaily January 23, 2018 11:00pmApril 2021 10:11amBudesonide-Formoterol (Symbicort) 160-4.5 mcg/actuation Hfa Aerosol HrewkzgCamitq1YKSXBKWTDNBNZLHxazs dailyOctflaget memorial hospital 2017 11:00pmComplies with drug therapyMagnesium Oxide 400 mg MfxvgdvBqycnzvfdgne654XJYLCzdrmMqjurig 13th, 2018 11:00pmAugust 2024 8:53amPioglitazone 15 mg bgqtimEhcmrtgfgmvp53TELQTktvn dailyOctflaget memorial hospital 2017 5:45pmApr2021 10:12amFluticasone Propionate 50 mcg/actuation Fries,VtxlitqreiWmxvhidnpjpm6EQOXMYHOSWMZYRIPprwdSsgggls 2017 11:00pmApril 2021 10:12amDuloxetine (Cymbalta) 20 mg Capsule,Delayed Release(Dr/Ec) Iqivndqgifye56NSEDPpqpzJxbngii 13th, 2018 11:00pmApril 2021 2:58pm Tizanidine (Zanaflex) 4 mg JayhokoIqlcsbsjdhen2NDNBMomfq dailyOctflaget memorial hospital 2017 11:00pmApr2021 10:11amAsenapine Maleate (Saphris ([place])) 5 mg Tablet, UqloyfugfhHzfbitkrfhnd8KDQFQQFBHXMWBjhwdZkzvhez 2017 11:00pmMay 2021 9:19amLevomilnacipran (Fetzima) 80 mg Capsule,Extended Release 24 Hr Bmkxopavpnge21JZZBOkjxjXpkveoc 2017 11:00pmApril 2021 2:57pm Vortioxetine (Trintellix) 20 mg LyzcqkNfbokeffzebj17FEHPLjqiyBwdyqup 2017 11:00pmApril 2021 10:11amBrexpiprazole (Rexulti) 2 mg TabletDiscontinued3 MGPOEvery morningOctober 2017 11:00pmMarch 2023 3:13pmdepression Furosemide 40 mg BqortdBamqplmjcwxj16FEFNAhwsfNuutzjm 2023 12:00amJuly 2023 6:58amTriamcinolone Acetonide 0.1 % undsaqqqQmmvva1HMAFCPPEFSLHALbhfs mbkqh86900Xcobuhl 2023 12:00amapply to lower legs as discussedUnknown Furosemide 40 mg rkpgwhXcenzhmemskt84EQNJHwbgdLjcq 2024 11:00pmJuly 2024 6:42amCarvedilol 25 mg oohcskIeafkfmklpnw7ZWWSEOymqt dailySeptember 2016 11:00pmSeptember 2016 10:10amOxybutynin Chloride 10 mg tablet extended release 28caDpdgwdbdexgd5JCXCPKkwbaNuodwbvzh 2016 11:00pmSeptember 2016 11:47amAmlodipine 5 mg wfphtkMfnevfzljmvq8EKWBRWcuxngrDqmxnzwrq 2016 11:00pmSeptember 2016 11:19amOmeprazole 40 mg capsule,delayed release(DR/EC)Gjtogafqwcol3QXZCZLtwscZfcpuykck 2016 11:00pmSeptember 2016 11:47amMontelukast 10 mg sxqkkhAeppntnquysk8KIAARObjmpVseuxmwpm 2016 11:00pmSeptember 2016 11:47amTheophylline 200 mg capsule,extended release 05yzJwhydtsnxdpf8GFRQOGgibiQkgbdhjqd 2016 11:00pmSeptember 2016 11:47amDiazepam 10 mg dytfkwUqfyxingraon7AKBLRKksrt as needed for Anxiety December 15, 2016 11:00pmSeptember 2016 11:47amZolpidem 10 mg tablet Cjhjvlzujdcy5CWUUOFgzmslw as needed for InsomniaSept2016 11:00pm December 26, 2016 11:47amPioglitazone-Metformin 15-850 mg tabletDiscontinued1 TABPODaily with breakfastSept2016 11:00pmSeptember 2016 11:42am Budesonide-Formoterol 160-4.5 mcg/actuation HFA aerosol fkqxqkbTgwrefqvfofa1OMCH INHALATIONTwice dailySe2016 11:00pmpt2016 11:47am Quetiapine 300 mg tablet extended release 24 lmVkwxqjgotfpz9ESJFNCesvqgb December 15, 2016 11:00pmSept2016 11:47amBrexpiprazole 4 mg tablet Kpbpfgmxgarw5FKBKPIwsuiKcsimsrme 4th, 2017 11:00pmpt2016 11:47am Eluxadoline 100 mg obbqriNfxmaacxcrwv0JAWPNTpzcv daily with mealsDecember 15, 2016 11:00pmpt2016 11:47amNabumetone 750 mg otcgbmWrhjejmddbrt5OYO POTwice dailySe2016 11:00pmpt2016 11:47amHydrocodone- Acetaminophen 5-325 mg lumznkUbxlerutceim4JRKXTN8C as needed for PainDecember 15, 2016 11:00pmJanuary 2017 10:02amVenlafaxine 150 mg capsule,extended release 24dwFhtrjmxhccwx4NFZKRRddggRoyhaculz 4th, 2017 11:00Sept2016 11:47amMagnesium Oxide 400 mg cucfsvIreactbugvrp1SONIFUmbgtClhdyeald 4th, 2017 11:00pmpt2016 11:47amGabapentin 800 mg csfamsXsqkqqzzjcky6SID POThree times dailyDecember 15, 2016 11:00pmpt2016 11:47am Ferrous Sulfate 325 mg (65 mg iron) xknjdlDslpwuxiwohl1DCKSEVbxcvIxqzuhybc 4th, 2017 11:00pmSept2016 11:47amFurosemide 20 mg mxlpacBtljqoamhzvx9BXY PODailySept2016 11:00pmpt2016 11:47amMirtazapine 15 mg daprvbDvjlfpobbkcr0UTBDPQryqphbJmsqesrjt 4th, 2017 11:00pmSept2016 11:47amCholecalciferol (Vitamin D3) 2,000 unit keazdfkKdjpylwvwgsk2LVLHQAugdl dailySept2016 11:00pmpt2023 1:28pmIpratropium-Albuterol 0.5 mg-3 mg(2.5 mg base)/3 mL solution for nebulizationDiscontinuedSept2016 11:00pmDecember 16, 2016 3:10amTizanidine 4 mg tabletDiscontinued1 TABPOTwice daily as needed for AnxietySe2016 11:00pt2016 11:47amNortriptyline 25 mg vlcgrvmUamvghixaphz4KJPRYRsqypXptwmrvxm 4th, 2017 11:00pt2016 11:47amFluticasone Propionate (Flonase Allergy Relief) 50 mcg/actuation Fries,JsmoqoghshGbwxmjzcslpz6ILEWJPJWTRTENRIAcjyo December 15, 2016 11:00pmpt2016 11:47amIpratropium Red Bud 0.03 % Fries,Non-EommufeXpctjlbdcihp5REEHBOJVONRRTUFNsehd daily as needed for Allergy SymptomsSe2016 11:00pmDecember 26, 2016 11:47amVortioxetine (Trintellix) 20 mg OjfqkuPgkwufvvpola79QXFKAgmbfOspqfslnr 4th, 2017 11:00pm December 26, 2016 11:47amAtorvastatin 40 mg WfzydwMlgnyttmpilh78EOBEUjzid tlyyaps029Aggwkaibo 7th, 2017 11:00pmpt2016 11:47amCarvedilol 6.25 mg TabletDiscontinued6.25MGPOTwice tgdzh972RskvdijchDecember 18, 2016 11:00pmpt2016 11:47amAspirin 81 mg Tablet,Delayed Release (Dr/Ec)Cetvmyxeeuly25TXNA Msomt061XcmhhngenDecember 18, 2016 11:002016 11:47amEnoxaparin (Lovenox) 30 mg/0.3 mL CcxauchOoncqmggxcwa21BEFZJGFKZ56E457Fxggkjely 7th, 2017 11:00pmpt2016 11:20amInsulin Aspart U-100 (Novolog Flexpen U-100 Insulin) 100 unit/mL Insulin ArfIhkrwzgxwrga7ZZQYQABXCZB7C/Day with meals and bedtime Protocol: *NOT APPROPRIATE [...] 400 mg/dl Dose/Route: 24 unit Instructions: Call Kcdhgoyf461Pfluomqyx2016 11:002017 10:02amPlease contact the information source for Protocol details.Fluticasone Propion-Salmeterol (Advair Hfa) 115-21 mcg/actuation Hfa Aerosol Inhaler Ujeilzulbfsw5DRYADIODTSPASDKdnfd clvsm578RylvhmssoDecember 18, 2016 11:002016 11:47amPioglitazone 15 mg ZesvteStsunwiltrle80GMSQWrvas with qofoinzwj92717Dcevcifpq2016 11:00pmOctober 2017 5:45pmAlbuterol Sulfate 2.5 mg /3 mL (0.083 %) Solution For NebulizationDiscontinued2.5MG XGQHJFINVJI2W as needed for Shortness Of Nqqyip66323Mupnnbnbw2016 11:00pm April 17, 2017 10:07amAtorvastatin 40 mg ErzfmqZawjsdpccuzi19CALDAdens irwxses49526Stigxvxme2016 11:47amJan2017 10:08amCarvedilol 6.25 mg TabletDiscontinued6.25MGPOTwice mwaaq24641Zhdqmuzsj2016 11:47amOctober 2017 5:41pmNabumetone 750 mg nyydyaFmluqugzwntz0WRUJZEvaxj ogjwx44602 December 26, 2016 11:47amJanuary 2017 10:01amOxybutynin Chloride 10 mg tablet extended release 62rqBmalcfsxuiaa8GIIUEAncho60740Lyeqjorau 2016 11:47January 2017 10:00amTizanidine 4 mg jogdolMrdbjcojjnky9TANFTAhzny daily as needed for Mtmiyjk13852Udqdnlyrv 15th, 2017 11:47uary 2017 9:58amVenlafaxine 150 mg capsule,extended release 14nfRxzchwayrwpg2NQWKNRhpkv72 300September 2016 11:47uary 2017 9:50amOmeprazole 40 mg capsule,delayed release(DR/EC)Skdimczumiva5TVOMZBdvzr62504Gzmtokrqf 15th, 2017 11:47uary 2017 10:00amNortriptyline 25 mg doylybcYjfofbcddosq4MXAMO Nyowu68470Prudofmgo 15th, 2017 11:47uary 2017 10:00amMagnesium Oxide 400 mg miornvYifnvcbxapoq9TQSJNUibbk91757Tliakputw 2016 11:47uary 2017 10:02amGabapentin 800 mg bphgfrQutwwkuxbbic5NQGTMYmvrt times wrnmp9179 0pt2016 11:47uary 2017 10:11amFerrous Sulfate 325 mg (65 mg iron) jowhqhQvlvkjpbewpc4MZAAJNgezc64180Uovfereba 15th, 2017 11:47amOctober 2017 5:40pmMontelukast 10 mg gfvyeyTducwlkcnrot8GMFKWSvciq96516Uyecwhzyr 2016 11:47amJune 2017 1:52pmFurosemide 20 mg rxauvtGatjotkpnrpq5RGA PSUmhhq93064Glgermseq 2016 11:47amApril 2021 10:13amMirtazapine 15 mg ciphvyLfzyaaylwnwk6WSGMEBfyltwu25118Linkrjurn 2016 11:47January 2017 10:02amTheophylline 200 mg capsule,extended release 15bsHktrjtelrdry4AVZZC Haagg30918Skkzpefuu 15th, 2017 11:472017 9:59amDiazepam 10 mg jwrgfxYxjzpxcwbjga7VCKGCRshqa as needed for Uwucfxe31473Vtcsgrgpu2016 11:472017 10:05amZolpidem 10 mg mgvwjgOtooxdcelcjv9BMEUJTfvkeyz as needed for Rdiqbnlx88434Gkzeydael2016 11:472017 9:58am Fluticasone Propionate (Flonase Allergy Relief) 50 mcg/actuation Fries,WbyuetusahYyezkvucxrvu7ZANJEIJHTGBCVUAZapgj91271Nwzzwurzo 15th, 2017 11:472017 10:04amIpratropium Red Bud 0.03 % Fries,Non-Aerosol Nxebbdidrapz2GFJTQOHACOEVUIRTcjne daily as needed for Allergy Hwxgizrr07687 December 26, 2016 11:472017 10:02amFluticasone Propion- Salmeterol (Advair Hfa) 115-21 mcg/actuation Hfa Aerosol InhalerDiscontinued2 PUFFINHALATIONTwice evkid94347Boxvhvzju2016 11:472017 10:04amBudesonide-Formoterol 160-4.5 mcg/actuation HFA aerosol inhaler Bonejvlfglgt1DSCLNCCEBRJCMRRhkad hvgac06939Bfkmuitbt2016 11:472017 10:06amQuetiapine 300 mg tablet extended release 24 bbHinanphnuyzh6OUJ XEZhlrjrl69046Rmsonvhae2016 11:472017 9:59amVortioxetine (Trintellix) 20 mg DiuksuVhobicrnzmss93PQVOCctch73738Vzhaphxbm 15th, 2017 11:472017 9:51amBrexpiprazole 4 mg mdcjysBpujwlbvcczi4RPPDECyafw 2016 11:472017 10:06amEluxadoline 100 mg fvrjldKrqurvzymwat5ZSVCWLdpne daily with ygrgp45762FzysoifznDecember 26, 2016 11:47April 17, 2017 10:05amZolpidem (Ambien) 5 mg GpyaksRdgfkpwvdohq8QPDHYMxazc at bedtime as needed for InsomniaJanuary 2017 12:00amJun2017 1:58pm Metformin 500 mg FtqszuKbldkzszjyim572QDPLOmiis dailyJanuary 2017 12:00am January 24, 2018 5:41pmGabapentin 800 mg bxddlzJzcibtqiausz0CXYLOLvefo times dailyJanuary 2017 10:10amApril 2022 1:59pmEluxadoline (Viberzi) 100 mg UrinkaHahudvlhxjiu7XLKFWAiwzp dailyJanuary 2017 12:00amApril 2021 10:11amCelecoxib 200 mg WfvykugVirxrvabylfl027HAKGEeeew dailyMay 2021 11:00pmJune 2021 8:13amFurosemide (Lasix) 40 mg MfcsdlUkhdkxcbcdqr84JOGY DailyMay 2021 11:00pmJune 2021 8:14amIpratropium-Albuterol 0.5 mg-3 mg(2.5 mg base)/3 mL Solution For KpwbqkqxmwimGfdvyuxgeafr1HUVTTKBSAZNXYgkp times dailyMay 2021 11:00pmMay 2021 9:33amTheophylline (Nishant) 80 mg/15 mL IsjxowRjulzgjgrpnp280AKJTUirtlYfg 2021 11:00pmAugust 2022 12:43pm Mirtazapine (Remeron) 30 mg AmvtjoCkmrpyqfhvwx94ZIESHwsahSum 2021 11:00pm September 26, 2021 8:17amGabapentin 100 mg KtcnserWqsswdnyrvqu663EQDPRhlrx dailyMay 2021 11:00pm[facility] 20[facility] 3:02pmInsulin Glargine (Basaglar Kwikpen U-100 Insulin) 100 unit/mL (3 mL) Insulin RgqWimluc36ZWAAWRSIWPYinco at bedtimeMay 2021 11:00pmComplies with drug therapyAsenapine Maleate (Saphris) 5 mg Tablet, FkgeohucnoKmyyjtwhydjl2YKVETAQAUQHYGmvzi at bedtimeMay 2021 11:00pm September 26, 2021 8:13amDuloxetine 60 mg Capsule, Delayed Rel SprinkleDiscontinued 60MGPOEvery morningAugust 15, 2021 11:00pmFebruary 2023 9:08am Cyclobenzaprine 10 mg HuownpIsbsdqmarmdc06GLTXGgkjxstEqd 2021 11:00pmJune 2024 9:01amFerrous Sulfate (Iron (Ferrous Sulfate)) 325 mg (65 mg iron) UmnagnZmpggrtuugow140WURJRehkmPujc 2021 11:00pmApril 2022 2:01pm Ferrous Sulfate (Iron) 325 mg (65 mg iron) ZjhugnZwzqmpcybgmq313JHPBUskop445Tbkv 2021 12:32pmApril 2022 2:01pmInsulin Aspart U-100 (Novolog Flexpen U-100 Insulin) 100 unit/mL (3 mL) insulin penActiveSUBCUTAugust 2024 11:00pmUnknownClobetasol 0.05 % godqoynkByppmwsvdati5KXTQZUJMZTTIKHyieb1972Ylfgn 2021 11:00pmApril 2022 2:01pmUse with dressing change x 1 week Furosemide 20 mg drgtupOsdxmafdlowk8STECHCrsnyKvpoe 2021 10:13amMay 2021 9:33amCyclobenzaprine 10 mg GeptkwFgahvcqlinrv09ALUKXrfrogxHtlha 2021 11:00pmMay 2021 9:21amIpratropium-Albuterol 0.5 mg-3 mg(2.5 mg base)/3 mL Solution For EngxktndxjxtMubfjs5VANYDFMWFZIWY2R as needed for WheezingApril 2021 11:00pmComplies with drug therapyTizanidine (Zanaflex) 4 mg Tablet Evvnbgxrmyeg7QKOSQhgzq dailyApril 2021 11:00pmJune 2021 8:19amhalf tab in AM and 2 at HSSucralfate 1 gram CmhserHqqkafeiwmpu6MREBJhdot times daily July 28, 2021 11:00pmJuly 2023 7:32amMetformin 850 mg Tablet Hpjrrnfcfyow684ZPPUQjemkUvylc 2021 11:00pmAugust 2022 12:40pm Levothyroxine 75 mcg FtmdkgQemlmv00WPESAYrimi morningApril 2021 11:00pm Complies with drug therapyDicyclomine 20 mg WbwgwiXsnamiivjivg20LLVOVkme times dailyApril 2021 11:00pmJuly 2023 3:58pmibsAmitriptyline 10 mg Tablet Vqbvnilfodxu27BYJKXpskj morningApril 2021 11:00pmJune 2024 9:00am Mirtazapine (Remeron) 30 mg PxcyviFdqatv19LOVNHtzhu at bedtimeApril 2021 11:00pmComplies with drug therapyFerrous Sulfate (Iron) 325 mg (65 mg iron) SgaqjgNpatdxwxcxdw098DUUYVwqnyEywsl 2021 11:00pmJuly 2021 12:33pm Albuterol Sulfate (Proair Hfa) 90 mcg/actuation Hfa Aerosol IgvnxlqKllbvx9GGBR EOPAWKEKAWM8V as needed for WheezingApril 2021 11:00pmComplies with drug therapyHydroxyzine Hcl 10 mg HrjwbwBxohuq79VMPMXlzwf times dailyApril 2021 11:00pmComplies with drug therapyFluticasone Propionate (Flonase) 50 mcg/actuation Fries,BosojcekeqWhezcycgocqq1TIYMNLILYQNVLPMXzrwuPaxmp 2021 11:00pmJune 2024 9:01amColestipol 1 gram NllooiUtrrpgarmwne9DJJBLnfomYoluw 2021 11:00pmApril 2022 2:01pmZonisamide 50 mg WsggjmiGcssgqmwhjuj55 MGPOTwice dailyApril 2021 11:00pmMarch 2023 3:00pmZolpidem (Ambien Cr) 6.25 mg Tablet,Ext Release MultiphaseDiscontinued6.25MGPODaily at bedtime as needed for InsomniaApril 2021 11:00pmMay 2021 9:26amLevomilnacipran (Fetzima) 120 mg Capsule,Extended Release 24 TbQmelak236YAIZVdyjk morningApril 2021 11:00pmdepressionComplies with drug therapyDapagliflozin Propanediol (Farxiga) 5 mg VqrcezMkgyzmwuhciy9JJMAXvdzcGjdmg 2021 11:00pmMay 2021 9:22amSemaglutide (Ozempic) 0.25 mg or 0.5 mg(2 mg/1.5 mL) Pen Injector Discontinued0.5MGSUBCUTevery weekApr2021 11:00pmMay 2021 9:25am Insulin Glargine (Lantus Solostar U-100 Insulin) 100 unit/mL (3 mL) insulin pen Qzmfrpxmdbyu51XFLRTBTRYR9q/Day before mealsAugust 2022 11:00pmAugust 2022 12:39pmIf Blood sugar is greater than 140 takes 2 more units-per patient Insulin Lispro-Aabc (Lyumjev Kwikpen U-100 Insulin) 100 unit/mL insulin pen Nfbxpp78UVCWUGWVUG3k/Day before mealsAugust 2022 11:00pmFSBS 151-200 2 u 200-250 3 units 250-300 5 units 300-350 6 units 351-400 7 units per patientComplies with drug therapyDapagliflozin Propanediol (Farxiga) 5 mg cclutzLkfpebnsplpo7UTDHNkgdy morningAugust 2022 11:00pmMarch 2023 3:57pmBrexpiprazole (Rexulti) 4 mg hnilneHnpxfe3FSRRFppjvJooojyhtm 2024 11:00pmUnknownOlopatadine 0.1 % dropsDiscontinuedDROPSOPHTHALMICMarch 2023 11:00pmMay 2024 8:26amFreeTextSig: INSTILL 1 DROP INTO AFFECTED EYE TWICE A DAY FOR 30 DAYS; Note: Source Status: Start; Refills: 5; Qty: 15 Milliliter; Provider: Marbella Whitt ( )Duloxetine 60 mg capsule,delayed release(DR/EC)Alsupbmwseme24VMDWZhcxlWvhjb 2023 11:00pmJanuary 2024 8:03amcarboxymethylcellulose sodium (Refresh Tears)DiscontinuedOPHTHALMICMar 2023 11:00pmJune 2024 9:00amAsenapine Maleate 5 mg tablet, sublingual Htmlezjgzhkl9AONVEAJKNYOGKrhfr at bedtimeBrown [facility] 2023 11:00pmJun2024 9:00amPioglitazone-Metformin 15-850 mg ayqvgoSfzlqsttobki3BKGBSOqlln dailyBrown [facility] 2023 11:00pmJun2024 9:02amZonisamide 25 mg hepbzugZdqsho10AORFIyvpj June 30, 2023 11:00pmUnknownGabapentin 300 mg oxopmroQvzbeg498MBPDMjfpoNkxcw 2023 11:00pmComplies with drug therapyAspirin 81 mg tablet,delayed release (/EC)Lubmljcoknwe01WWFOLlshfFyros 2023 11:00pmJun2024 8:54am Loperamide (Imodium A-D) 2 mg pyskvpZomybouwuspr7WDFTDZoeb times dailyBrown [facility] 2023 [facility]pm[facility] 9:01amFreeTextSi tablet as needed Orally Four times a day; Note: Source Status: Start; Qty: 40 Tablet; Provider: Marbella Whitt ATizanidine (Zanaflex) 4 mg bknwmqHmespq0SOTJNszngvlMvrqh 2023 11:00pmUnknownClonidine Hcl 0.1 mg tabletActive0.1MGPOTwice dailyBrown [facility] 2023 11:00pmComplies with drug therapyCarvedilol 25 mg lyfkuiWklsdstriolq45VMTL Twice dailyBrown [facility] 2023 11:00pmJuly 2023 6:49amBrexpiprazole 3 mg gxraxpIhrdfyxjwsrm4JZZFJogrjNelit 2023 11:00pmJune 2024 10:20am vit-iron fum-folic ac ( Vitamin)DiscontinuedPOBrown [facility] Hospital 2023 11:00pmJune 2024 9:02amFerrous Sulfate 325 mg (65 mg iron) tablet Ktcwwrcfporv447OFBGWmtvqRuoff 2023 11:00pmJune 2024 9:01amColestipol 1 gram qscewxSuqbjknjdkxj8OCQEPsezaSfkuq 2023 11:00pmJune 2024 10:19amTheophylline 200 mg capsule,extended release 19jnDqextwbpqlym176YTNNUhoil June 30, 2023 11:00pmJune 2024 9:02amDapagliflozin Propanediol (Farxiga) 5 mg yuovwiTibkpipkoldf7SVVCOvtxu ezlbuyg119Dtrzx 2023 3:57pmNov2023 12:43pmType 2 diabetes mellitus without complication Type 2 diabetes mellitus without complicationsKetoconazole 2 % creamDiscontinued 1APPLICTOPICALTwice wnfot68480Qzwomqp 2023 11:00pmMay 2024 8:25am Tinea corporis Tinea corporisSemaglutide (Ozempic) 0.25 mg or 0.5 mg (2 mg/3 mL) pen injector Active0.5MGSUBCUTevery weekAugust 30, 2024 11:00pmUnknownDapagliflozin Propanediol (Farxiga) 5 mg zephpnDmntjq4ESATTapvc fmlfiql821XcxpxipkMarch 07, 2024 12:43pmType 2 diabetes mellitus without complication Type 2 diabetes mellitus without complicationsComplies with drug therapy Ondansetron 8 mg tablet,xlmxlxwasogiotPgbxwq2XBYAH6O as needed for Zqlmht617Zmwm 2024 11:00pmUnknownCalcium Carbonate 600 mg calcium (1,500 mg) tablet Fnurxf501HRNSTokhg406Muzpwk 2024 11:00pmUnknownCholecalciferol (Vitamin D3) 50 mcg (2,000 unit) ydurbxyNzxmye03UQLMEOgedo384Cugson 2024 11:00pm UnknownComp.Stocking,Thigh,Long,Large miscActive0.Qiivb06Dxgvbwpi 2023 12:00amAs directedComp.Stocking,Thigh,Long,Large miscDiscontinued0.RouteMay 27, 2023 12:00amFebruary 2023 4:01pmSymptomatic varicose veins of both lower extremities Varicose veins of bilateral lower extremities with other complications VENOUS INSUFFICANCYWEAR DAILY, 30 DAYSComp.Stocking,Thigh,Long,Large miscActive0 .Crzup76Dfgrwewr 2023 4:01pmSymptomatic varicose veins of both lower extremities Varicose veins of bilateral lower extremities with other complications VENOUS OBZXPBEZVHXK35-06 COMPRESSION ,WEAR DAILY, 30 DAYSMethylprednisolone 4 mg tablets,dose xbwhAlazlgqjfzoq1MHnim package okcoifokih536Iddqz 2024 11:00pmJune 2024 9:01amOsteoarthritis of left hip Unilateral primary osteoarthritis, left hipPO PER PKG DIR for 6 daysLenalidomide 10 mg fsyytnrIvopayykjsun13LDYKKctrn769Cgbbxnz 2024 11:00pmOctober 2024 10:07amIgG multiple myeloma Multiple myeloma not having achieved remissionswallow whole with glass of water; do not open, crush, chew , break, or dissolve Take day 1-14 every 28 day cycleAcyclovir 400 mg xlvrpiHgxcwz011LNNVYhoqo daily 00657Dnxauwucp 2024 11:00pmUnknownPotassium Chloride 10 mEq tablet extended sctahyiMurvow01FUEBSSuytz089Fniicfwz 10th, 2025 12:00amUnknown Immunizations Immunization Event Date Not Given Reason Dose Number [employer] Lot Number Reason(s) Given Vaccine Information Statement (VIS) Detail Administration Location COVID-19 mRNA-1273 (Moderna) June 11, 2021 COVID-19 mRNA-1273 (Moderna)July 12OVID-19 mRNA-1273 (Moderna)January 24OVID-19 mRNA-1273 (Moderna)March 12OVID-19 mRNA-1273 (Moderna)October 28OVID- mRNA, Comirnaty (Pfizer)July 05OVID- mRNA, Comirnaty (Pfizer)July 25OVI mRNA Bivalent Booster ([employer])December 29OVID-19 ([employer]) 12Y and olderSeptember 2022Quadrivalent Influenza (mdv)February 11, 2017Hepatitis B, Recombinant June 13, 2022Hepatitis B, RecombinantSeptember 2022Influenza, trivalent December 17, 2023Flu Vaccine - AdultOctober [...] 22, 2017 Posterior-chamber intraocular lens, pseudophakicSeptember 2022UDI: [id number] Procedures Procedure Date Performed Status XR bone survey February 02, 2024 8:05am comple shan XR chest 2V* December 21, 2024 9:56am comp leted XR bone survey August 22, 2021 8:25am completed XR pelvis 1-2V April 25, 2022 9:42am comple shan XR lumbar spine 2-3V* April 25, 2022 9:42am completed XR bone survey February 06, 2023 11:45am compl eted PET NaF bone init (nopr) October 05, 2024 9:27am completed Blood Culture December 21, 2024 completed Blood Culture December 21, 2024 completed Relevant Diagnostic Tests and/or Laboratory Data Laboratory Results Test Collection Date/Time Result Date/Time Result Interpretation Reference Range Result Comment Performing Site Corrected White Blood Count February 18, 2025 10:43am February 18, 2025 11:40am 4.4 10*3/uL [facility] [id number] [address] [facility] [address]Yqlcsnpszeg WBC CountNovember 2024 10:43amNovember 2024 11:40am4.4 10*3/uL3.8-11.6FC[facility] [id number] [address] [facility] [address]Bgj Blood CountNovember 2024 10:43amNovemb2024 11:40am4.05 10*6/uL3.60-5.00[facility] [id number] [address] [facility] [address]FvsawndxukGtzroheu 2024 10:43amNove2024 11:40am 12.4 g/dL11.8-15.4FC[facility] [id number] [address] [place] [address] 91681LbclplyvxwQferrlsg 2024 10:43amNove2024 11:40am 36.9 %34.0-46.4FC[facility] [id number] [address] [facility] 38[address]Colg Corpuscular VolumeNovember 2024 10:43amNove2024 11:40am91.1 uP92-694JqarcqcshDiley [facility] [id number] [address] [facility] 56698Iiay Corpuscular HemoglobinNovember 2024 10:43amNovember 2024 11:40am30.6 pg24.7-34.3FC[facility] [id number] [address] [facility] 59998Zmxh Corpuscular Hemoglobin ConcentNov2024 10:43am February 18, 2025 11:40am33.6 g/dL32.0-35.0[facility] [id number] [address] [facility] 25839Stc Cell Distribution WidthNov2024 10:43amNove2024 11:40am16.4 %Above high .9-15.3[facility] [id number] [address] [facility] 28969Fadsuipf CountNov2024 10:43amN2024 11:40am82 10*3/uLBelow low rseqeq910-571HugpcgcdxDiley Ridge Medical [facility] [id number] [address] [facility] 32634Kwpd Platelet VolumeNov2024 10:43amN2024 11:40am9.3 fL6.3-10.7FC[facility] [id number] [address] [facility] 31863Mwtriwiixnt (%) (Auto)February 18, 2025 10:43amNove2024 11:40am59.0 %.[facility] [id number] [address] [facility] 79463Gywxxhslzyn (%) (Auto)February 18, 2025 10:43amNove2024 11:40am23.4 %.[facility] [id number] [address] [facility] 00084Puywdlsao (%) (Auto)February 18, 2025 10:43amNove2024 11:40am13.8 %.[facility] [id number] [address] [facility] 03702Eqqenvjsozm (%) (Auto)February 18, 2025 10:43amNove2024 11:40am3.3 %.[facility] [id number] [address] [facility] 73738Ktbvsdijh (%) (Auto)February 18, 2025 10:43amNove2024 11:40am0.5 %.[facility] [id number] [address] [facility] 20713Mznduebkx RBC Relative Count (auto)February 18, 2025 10:43am February 18, 2025 11:40am0.1 /100{WBC}0-0.5[facility] [id number] [address] [place], [place] [address]70Neutrophils # (Auto)February 18, 2025 10:43amNovember 2024 11:40am2.6 10*3/uL1.8-7.7FC[facility] [id number] [address] [place] [address] 14759Iedyiudewfo # (Auto)February 18, 2025 10:43amNovember 2024 11:40am1.0 10*3/uL1.00-4.8[facility] [id number] [address] [place] [address] 71168Ziaopclhy # (Auto)February 18, 2025 10:43amNovember 2024 11:40am0.6 10*3/uL0.0-0.8[facility] [id number] [address] [place] [address] 39700Ueeedzsffue # (Auto)February 18, 2025 10:43amNovember 2024 11:40am0.1 10*3/uL0.0-0.45[facility] [id number] [address] [place] [address] 34072Rycyrtxbv # (Auto)February 18, 2025 10:43amNovember 2024 11:40am0.0 10*3/uL0.0-0.2FC[facility] [id number] [address] [facility] 47021Cegxbjabf NeutrophilsSeptember 2024 9:05amSeptember 2024 10:36am36 %Below low gjijey90-85BcuuiczojDiley [facility] [id number] [address] [facility] 47598Zhxy Neutrophils %December 26, 2024 9:05amSeptember 2024 10:36am4 %0-5FC[facility] [id number] [address] [place] [address] 22224Nukadpglywv %December 26, 2024 9:05amSeptember 15th, 2025 10:36am23 %18-42[facility] [id number] [address] [facility] 98372Qrrhcdni LymphocytesSeptember 2024 9:05amSeptember 2024 10:36am2 %0-12[facility] [id number] [address] [facility] 91132Jslzgelkn %December 26, 2024 9:05amSeptember 2024 10:36am7 %2-11[facility] [id number] [address] [facility] 93463Ufdzlxyidgc %December 26, 2024 9:05amSeptember 2024 10:36am29 %Above high normal1-3[facility] [id number] [address] [facility] 38154Brjdqhqrh %November 28, 2024 10:25amAugust 2024 11:40am1 %0-[facility] [id number] [address] [facility] 13257Pic Blood Cell MorphologyOctober 2024 1:15pmOctober 2024 2:59pmN/AFCincinnati Shrin[facility] [id number] [address] [facility] 59639MrhotkqmmjtpiUfgevcm 2024 1:15pmOctober 2024 2:59pm SlightDiley [facility] [id number] [address] [facility] 21109RmabqasujulysnFtqfagp 2024 1:15pmOctober 2024 2:59pm ModerateD[facility] [id number] [address] [facility] 68432MsuwnxqlztriHtyvwbu 2024 1:15pmOctober 2024 2:59pm MarkedDiley [facility] [id number] [address] [facility] 27904HpvcyfafuxrsBwjpoampq 2024 7:57amSeptember 2024 9:47amSlightDiley Ridge Medical Center [facility] [id number] [address] [facility] 35190Bnig Drop CellsOctober 2024 1:15pmOctober 2024 2:59pm SlightD[facility] [id number] [address] [facility] 12301SvfpafqeiuKaczbqw 2024 1:15pmOctober 2024 2:59pm SlightD[facility] [id number] [address] [facility] 33854Csjiqnyx EstimateOctober 2024 1:15pmOctober 2024 2:59pmDecreasedNormTuscarawas [facility] [id number] [address] [facility] 51242Oqxbofic Morphology CommentOctober 2024 1:15pmOctober 2024 2:59pmNormalNormTuscarawas Hospital [facility]tr [id number] [address] [facility] 26313Hxtic ColorSeptember 2024 9:30amSeptember 2024 9:57amLight-yellowYellowDiley Ridge Medical Center [facility] [id number] [address] [facility] 76280Wythw AppearanceSeptember 2024 9:30amSeptember 2024 9:57amClearClearDiley Ridge [facility] [id number] [address] [facility] 58405Gabtd Specific GravitySeptember 2024 9:30amSeptember 2024 9:57am1.0101.001-1.030[facility] [id number] [address] [facility] 40001Cxwtk pHSeptember 2024 9:30amSeptember 2024 9:57am 5.55.0-9.0[facility] [id number] [address] [facility] 25943Vmuqj Leukocyte EsteraseSeptember 2024 9:30amSeptember 2024 9:57amNegativeNegativeDiley Ridge [facility] [id number] [address] [facility] 68252Txvqv NitriteSeptember 2024 9:30amSeptember 2024 9:57amNegativeNegativeDiley [facility] [id number] [address] [facility] 33493Ibcvv ProteinSeptember 2024 9:30amSeptember 2024 9:57amNegative mg/dLNegativeDiley [facility] [id number] [address] [facility] 94140Fefwg Glucose (UA)December 21, 2024 9:30amSeptember 2024 9:57am>=1000 mg/dLAbove high normalNormalDiley [facility] [id number] [address] [facility] 24534Fcikp KetonesSeptember 2024 9:30amSept2024 9:57amNegativeNegativeDiley [facility] [id number] [address] [facility] 03973Phgja UrobilinogenSeptember 2024 9:30amSeptember 2024 9:57amNormal mg/dLNormalDiley [facility] [id number] [address] [facility] 30905Jueli BilirubinSept2024 9:30amSept2024 9:57amNegativeNegativeD[facility] [id number] [address] [facility] 98129Titxk Occult BloodSeptember 2024 9:30amSeptember 2024 9:57amNegativeNegativeDiley [facility] [id number] [address] [facility] 90520Ktkiqcm LevelNovember 2024 10:43amNove2024 11:10yh459 mg/dLAbove high ofznze10-292RRT recommended reference rangeRandom Glucose Reference Range is dependent on time and content of last meal. Glucose of more than 200 mg/dL in a nonstressed, ambulatory subject supports the diagnosisof Diabetes Mellitus.[facility] [id number] [address] [facility] 26707Doeqf Urea NitrogenNov2024 10:43amNove2024 11:58am19 mg/dL7-[facility] [id number] [address] [facility] 48935IijwsblmqfFsbrsttm 8th, 2025 10:43amNove2024 11:58am 1.22 mg/dLAbove high normal0.60-1.20[facility] [id number] [address] [facility] 32709Amotnbmwh GFR (Non- AmericanJanuary 2022 10:05am April 17, 2022 12:09pm43 mL/MinDiley [facility] Center [facility] [id number] [address] [facility] 23476Tgnvagrno GFR (CKD-EPI)February 18, 2025 10:43amNove2024 11:58am48.943 mL/MinD[facility] [id number] [address] [facility] 90268Qeblhssvy GFR ()April 17, 2022 10:05am April 17, 2022 12:09pm52 mL/MinGFR estimated reference range: According to KDOQI guidelines, <60 ml/min/1.73m2 is sufficient todiagnose a patient with chronic kidney disease.[facility] [id number] [address] [facility] 98620Iauzzq LevelNov2024 10:43amNovemb2024 11:22tx283 mmol/U275-351VpfpungdeDiley Ridge Medical Center [facility] [id number] [address] [facility] 75477Souocxwwz LevelNov2024 10:43amNove2024 11:58am3.1 mmol/LBelow low normal3.5-5.1FCinc[facility] [id number] [address] [facility] 02425Nsnzwrwz LevelNov2024 10:43amNove2024 11:58am99 mmol/S79-960XjwwrxwurDiley Ridge Medical Center [facility] [id number] [address] [facility] 98866Nojucl Dioxide LevelNov2024 10:43amNove2024 11:58am33.7 mmol/LAbove high .0-31.0[facility] [id number] [address] [facility] 57190Idwwr GapNovember 2024 10:43amNove2024 11:58am 12.4 mEq/L6.0-15.0[facility] [id number] [address] [facility] 17411Drhfttg LevelNovember 2024 10:43amNovemb2024 11:58am7.7 mg/dLBelow low normal8.6-10.3FC[facility] [id number] [address] [facility] 16698Fxkjlzxyi LevelAugust 2024 10:25amAugust 2024 11:00am1.3 mg/dLBelow low normal1.9-2.7FCinc[facility] [id number] [address] [facility] 19285Sjsba ProteinNovember 2024 10:43amNovember 2024 11:58am5.8 g/dLBelow low normal6.4-8.9[facility] [id number] [address] [facility] 74283SwretcpSlwmijzk 2024 10:43amNovember 2024 11:58am3.7 g/dL3.5-5.7FC[facility] [id number] [address] [facility] 01005JatbswiaXjntxkub 2024 10:43amNovember 2024 11:58am2.1 g/dLDiley Ridge Medical Center Ctr [id number] [address] [facility] 94498Reghfzx/Globulin RatioNovember 2024 10:43amNovember 2024 11:58am1.8[facility] [id number] [address] [facility] 95219Joswd BilirubinNovember 2024 10:43amNovember 2024 11:58am0.4 mg/dL0.3-1.0[facility] [id number] [address] [facility] 71073Wjrgyaxav Amino Transf (AST/SGOT)February 18, 2025 10:43am February 18, 2025 11:58am25 U/G08-54AuwqdbmnkDiley Ridge Medical Center [facility] [id number] [address] [facility] 40864Ximhprg Aminotransferase (ALT/SGPT)February 18, 2025 10:43am February 18, 2025 11:58am35 U/L7-52[facility] [id number] [address] [facility] 02116Qgvgcpii PhosphataseNovember 2024 10:43amNovemb2024 11:99ii101 U/LAbove high -814CscjhgbszDiley Ridge Medical Center [facility] [id number] [address] [facility] 82646Kugawkb DehydrogenaseOctober 2024 9:35amOctober 2024 12:23nn455 U/C915-445PwnsqbtvoDiley Ridge Medical Center [facility] [id number] [address] [facility] 94332Udrw AcidJune 2024 9:06amJune 2024 10:56am6.7 mg/dL Above high normal2.3-6.6FCinc[facility] [id number] [address] [facility] 19829Datp LevelMay 2024 10:34amMay 2024 12:15pm57 ug/dL 50-212[facility] [id number] [address] [facility] 34798Pkzzf Iron Binding CapacityMay 2024 10:34amMay 2024 12:54og130 ug/qV266-764TdxoyvttpDiley Ridge [facility] [id number] [address] [facility] 85633Mkdg SaturationMay 2024 10:34amMay 2024 12:15pm15.7 %Below low -21QzxewwlijDiley Ridge Medical Center [facility] [id number] [address] [facility] 72281AwkirjzdwflOid 2024 10:34amMay 2024 12:01on667 mg/aU532-628JmvwaswhpDiley Ridge Medical Center [facility] [id number] [address] [facility] 75992ErzdgymfBgf 2024 10:34amMay 2024 1:87dj171.2 ng/mL 11.0-306.8[facility] [id number] [address] [facility] 91730Veejjnd Stimulating Hormone 3rd GenFebruary 13, 2025 10:23am February 13, 2025 11:43am3.06 u[iU]/mL0.45-5.33[facility] [id number] [address] [facility] 85188Fygtzfch Creatinine Clearance (ChemNovember 2024 10:43am February 18, 2025 11:58am48.86[facility] [id number] [address] [facility] 89549Rfgza Random CreatinineMay 2021 10:03amMay 2021 2:41pm35.9 mg/dLNo reference range establishedDiley [facility] [address] [facility] 62518Sbwxf ImmunofixationOctober 2024 9:35amOctober 2024 2:09pmCommentAbnormal (applies to non-numeric results).Immunofixation shows IgG monoclonal protein with kappalight chain specificity. PLEASE NOTE: Samplesfrom patients receiving DARZALEX(R)(daratumumab) or SARCLISA(R)(isatuximab-irfc) treatmentcan appear as an IgG kappa and mask a complete response(CR). If this patient is receiving these therapies, thisIFE assay interference can be removed by ordering testnumber [id number]- Immunofixation, Daratumumab-Specific,Serum or [id number]- Immunofixation, Isatuximab-Specific,Serum and submitting a new sample for testing or bycalling the lab to add this test to the current sample.[facility] GOctober 2024 9:35amOctober 2024 2:09pm 780 mg/uC406-1477NbtCoqc AOctober 2024 9:35am February 08, 2025 2:66ao896 mg/nX71-464DmaOujp M February 06, 2025 9:35amOctober 2024 2:09pm33 mg/fD03-340Jgucchvrp at: - [facility] [address] [id number] Director: Jhoan Rich PhD, Phone: [phone] B Surface AntibodyJuly 2024 12:59pmAugust 2024 4:36amReactive.Non Reactive: Not immune to HBV infection. Equivocal: Unable to determine if anti-HBs is present atlevels consistent with immunity. Reactive: Anti-HBs concentration detected at greater than 10 mIU/mL. Individual is considered to be immune to infection with HBV.[facility] B Core Total AntibodyJuly 2024 12:59pm November 11, 2024 4:36amNegativeNegativePerformed at: [facility] [place], [place] [id number] Director: Jhoan Rich PhD, Phone: [phone] 2021 10:03amMay 2021 4:07pm4.9 mg/LAbove high normal0.6-2.4Siemens Immulite 2000 Immunochemiluminometric assay (ICMA)Values obtained with different assay methods or kits cannotbe used interchangeably. Results cannot be interpreted asabsolute evidence of the presence or absence of malignantdisease.Performed at: [address] [id number] Director: Betty Bah MD, Phone: [phone] B Surface Antigen November 10, 2024 12:59pmAugust 2024 4:36amNegativeNegativeLabCo C Antibody (EIA)November 10, 2024 12:59pmAugust 2024 4:36amNon reactiveNon ReactiveLabCo Total ProteinOctober 2024 9:35amOctober 2024 1:08pm6.0 g/dL6.0-8.5[facility] Albumin (Send Out)February 06, 2025 9:35amOctober 2024 1:08pm3.1 g/dL 2.9-4.4[facility] 2024 9:35amOctober 2024 1:08pm0.2 g/dL0.0-0.4[facility] 2024 9:35amOctober 2024 1:08pm0.9 g/dL0.4-1.0Lab[facility] Beta GlobulinsOctober 2024 9:35amOctober 2024 1:08pm1.1 g/dL0.7-1.3 [facility] GlobulinsOctober 2024 9:35amOctober 2024 1:08pm0.7 g/dL0.4-1.8[facility] Electrophoresis M-SpikeOct2024 9:35amOctober 2024 1:08pmComment: g/dLNot ObservedSPE shows asymmetrical gamma. Suggest serum MITCH and free lightchain analysis for further evaluation.[facility] (PEP)February 06, 2025 9:35amOctober 2024 1:08pm2.9 g/dL2.2-3.9[facility] /Globulin (PEP) February 06, 2025 9:35amOctober 2024 1:08pm1.10.7-1.7Lab[facility] Electrophoresis NoteOct2024 9:35amOctober 2024 1:08pmComment.Protein electrophoresis scan will follow via computer,mail, or manager database administration delivery.Performed at: [address] [id number] Director: Jhoan Rich PhD, Phone: [phone] [place] Light Chains, QuantOct2024 9:35amOctober 2024 3:09pm36.1 mg/LAbove high normal3.3-19.4Lab[facility] Lambda Light Chains, QuantOct2024 9:35amOctober 2024 3:09pm16.2 mg/L5.7-26.3Lab[facility] [place]/Lambda Light Chain RatioOct2024 9:35amOctober 2024 3:09pm2.23Above high normal0.26-1.65 Performed at: [facility] Clinical DataAsp[facility] [place], [place] [id number] Director: Jhoan Rich PhD, Phone: [phone] C InterpretationJuly 2024 12:59pmAugust 2024 4:36amComment.Not infected with HCV unless early or acute infection issuspected (which may be delayed in an immunocompromisedindividual), or other evidence exists to indicate HCVinfection.[facility] ImmunofixationMay 2021 10:03amMay 2021 12:07pmSee comment.No monoclonality detected.Performed at: [facility] EvoTronixMatheny Medical and Educational CenterEhkmae[address] [place], [place] [id number] Director: Jhoan Rich PhD, Phone: [phone] Random Total Protein February 06, 2025 9:35amOctober 2024 2:09pm9.9 mg/dLNot Estab.[facility] Random AlbuminOctober 2024 9:35amOctober 2024 2:09pm30.9 %.[facility] Thsck-5-Fsjbpzwmy (%)February 06, 2025 9:35amOctober 2024 2:09pm2.8 %.[facility] Random Icdgp-9-Ftjpbfwlu %February 06, 2025 9:35amOctober 2024 2:09pm11.3 %. [facility] Random Beta-Globulin %February 06, 2025 9:35am February 08, 2025 2:09pm33.8 %.[facility] Random Gamma Globulin %February 06, 2025 9:35amOctober 2024 2:09pm21.1 %.[facility] Urine Random PEP M-Damien %February 06, 2025 9:35amOctober 29th, 2025 2:09pmNot observed %Not ObservedSaug[facility] Random Prot Electrophor Note February 06, 2025 9:35amOctober 2024 2:09pmComment.Protein electrophoresis scan will follow via computer,mail, or manager database administration delivery.Performed at: [address] [id number] Director: Jhoan Rich PhD, Phone: [phone] Microbiology Results Procedure Source Result Collection Date/Time Result Date/Time Result Comment Performing Site Blood Culture Blood, Right Arm NO GROWTH 5 DAYS Sept2024 9:20am December 26, 2024 9:36am [facility] [id number] [address] [place] [address] 92[address]Kodhj CultureBlood, Left WristNO GROWTH 5 DAYSSept2024 9:30amSept2024 9:36amD[facility] [id number] [address] [place] [address] Diagnostic Imaging Reports Author Martita Calderon [facility] HospitalAuthoredMay 2021 2:41pmReportDictated Date/TimeDictated ByStatusRadiology ReportMay 2021 2:41pmLynn AsencioSelect [facility]ty [facility] [place] [address] [place], [place] [id number] XRay Report Signed Patient: Kelsea Turcios MR#: [id number] : 1960 Acct:[id number] Age/Sex: 60 / F ADM Date: 2 Loc: Room: Type: [facility] Attending Dr: Roxane Bills MD Ordering Provider: [...] Martita Calderon M.D.08/22/2021 3:03 PM Dictation Location: [place] [address] Transcribed By: [facility] 08/22/21 1503 Dictated By: Martita Calderon MD 08/22/21 1441 Signed By: <Electronically signed by MD Martita Calderon in OV> 08/22/21 1503 Author Manish Mccurdy [facility] HospitalAuthoredJanuary 2022 1:04pmReportDictated Date/TimeDictated ByStatusRadiology ReportJanuary 2022 1:04pmJosaadia Mccurdy Jr [facility] [place] [address] [place] [address] XRay Report Signed Patient: Kelsea Turcios MR#: [id number] : 1960 Acct:[id number] Age/Sex: 61 / F ADM Date: 3 Loc: Room: Type: [facility] Attending Dr: Roxane Bills MD Copies to: MD Shanae Manzo APRN~ Ordering Provider: Shanae Galicia APRN Date of Service: 04/25/22 XR/XR pelvis 1-2V: left leg pain ([id number]) XR/XR lumbar spine 2-3V*: left leg pain [...] pelvis. Impression dictated by: Manish Mccurdy Jr., DJaneOJane04/25/2022 1:05 PM Dictation Location: [facility]-12 Transcribed By: [facility] 04/25/22 1305 Dictated By: Manish Mccurdy Jr, DO 04/25/22 1304 Signed By: <Electronically signed by Manish Mccurdy Jr, DO in OV> 04/25/22 1305 Author Domenico Brown [facility] 2022 4:06pmReportDictated Date/TimeDictated ByStatusRadiology ReportOctober 2022 4:06pmRosalina PalomoKnox Community Hospital [facility] [place] [address] [place] [address] XRay Report Signed Patient: Kelsea Turcios MR#: [id number] : 1960 Acct:[id number] Age/Sex: 62 / F ADM Date: 3 Loc: Room: Type: [facility] Attending Dr: Roxane Bills MD [...] Domenico Brown M.D.02/06/2023 4:08 PM Dictation Location: [facility]05 Transcribed By: [facility] 02/06/23 1608 Dictated By: Domenico Brown DO 02/06/23 1606 Signed By: <Electronically signed by Domenico Brown DO in OV> 02/06/23 1608 Author Domenico Brown [facility] 2023 1:44pmReportDictated Date/TimeDictated ByStatusRadiology ReportOctober 2023 1:44pmTamiko PalomoUniversity [facility]als [facility] Main [place] [address] [place] [address] XRay Report Signed Patient: Kelsea Turcios MR#: [id number] : 1960 Acct:[id number] Age/Sex: 63 / F ADM Date: 4 Loc: XT Room: Type: [facility] Attending Dr: Roxane Bills MD [...] Domenico Brown M.D.02/02/2024 1:46 PM Dictation Location: [place] [address] Transcribed By: [facility] 02/02/24 1346 Dictated By: Domenico Brown DO 02/02/24 1344 Signed By: <Electronically signed by Domenico Brown DO in OV> 02/02/24 1346 Author Harvey Barry [facility] HospitalAuthoredJun 2024 3:42pmReportDictated Date/TimeDictated ByStatusRadiology ReportJune 2024 [address]vey [address] II [facility] Main [address] [address] Nuclear Medicine Report Signed Patient: Kelsea Turcios MR#: [id number] : 1960 Acct:[id number] Age/Sex: 63 / F ADM Date: 5 Loc: XT Room: Type: [facility]CR Attending Dr: Roxane Bills MD Copies to: MD Harvey Manzo II, MD~ Ordering Provider: Roxane Bills [...] Barry M.D. 10/05/2024 3:56 PM Dictation Location: [place] [address] Transcribed By: [facility] 10/05/24 1556 Dictated By: Harvey Barry II, MD 10/05/24 1542 Signed By: <Electronically signed by Harvey Barry II, MD in OV> 10/05/24 1556 Author Manish Mccurdy [facility] HospitalAuthoredSeptember 2024 4:14pmReport Dictated Date/TimeDictated ByStatusRadiology ReportSeptember 2024 4:14pm Manish Mccurdy Jr DOcompKnox Community Hospital [facility] [place] [address] [place] [address] XRay Report Signed Patient: Kelsea Turcios MR#: [id number] : 1960 Acct:[id number] Age/Sex: 64 / F ADM Date: 5 Loc: XT Room: Type: [facility] Attending Dr: Roxane Bills MD [...] Jr., D.O. 12/21/2024 4:15 PM Dictation Location: [place] [address] Transcribed By: [facility] 12/21/24 1615 Dictated By: Manish Mccurdy Jr, DO 12/21/24 1614 Signed By: <Electronically signed by Manish Mccurdy Jr, DO in OV> 12/21/24 1615 Vital Signs Vital Reading Result Reference Range Collection Date/Time Weight 107.95 kg November 22, 2024 9:03amBody Cbjdorrxzcg03.4 [degF]97.6-99.0August 2024 9:03amHeart Rate72 /xra44-124Kaqeil 2024 9:03amOxygen saturation by Pulse pnfyujrz56 %95-100August 2024 9:03amBP Xjicuzjm247 mm[Hg]100-140August 2024 9:03amBP Izwvdphvs16 mm[Hg]60-100August 2024 9:99azHfuipm105.60 kgSeptember 2024 7:42amBody Fccbrhbsnbh68.2 [degF]97.6-99.0September 2024 7:42amHeart Rate74 /vao40-570Poffruwfu 10th, 2025 7:42amRespiratory rate16 /uqw34-89Zlzxacrri 10th, 2025 7:42amOxygen saturation by Pulse wgxklced08 %95-100Sept2024 7:42amBP Gylmxwcn707 mm[Hg]100-140September 2024 7:42amBP Wrrkjvyvr78 mm[Hg]60-100September 2024 7:73ayTbsopp54 [in_i] December 26, 2024 12:43ukZzxrly896.40 kgSeptember 2024 12:15pmBody Legjhfprwiz419 [degF]97.6-99.0September 2024 12:15pmHeart Rate66 /min 60-100September 2024 12:15pmRespiratory rate16 /axi49-24Iafynjnvz 2024 12:15pmOxygen saturation by Pulse %95-100September 2024 12:15pmBP Kkkhjfga909 mm[Hg]100-140September 2024 12:15pmBP Qwixbnyxp72 mm[Hg]60-100September 2024 12:15pmInhaled oxygen flow rate4 L/minSeptember 2024 12:27coJwelgk13 [in_i]December 28, 2024 12:61ddObdtof435.30 kg December 31, 2024 4:28amBody Jhpsenvjods99.2 [degF]97.6-99.0September 2024 10:12amHeart Rate54 /erl63-298Rpufsbebx 2024 10:12amRespiratory rate 18 /xlv85-09Zafpmznkb 2024 10:12amOxygen saturation by Pulse zowiohub54 % 95-100September 2024 10:12amBP Wfqzpugy148 mm[Hg]100-140September 2024 10:12amBP Gejndejry63 mm[Hg]60-100September 2024 10:12amInhaled oxygen flow rate3 L/minSeptember 2024 10:05teYhjuec17.42 kgOctober 2024 10:29amBody Zidtvjmhedx61.7 [degF]97.6-99.0October 2024 10:29amHeart Rate69 /yvj94-503Xkolbsw 2024 10:29amRespiratory rate16 /tqp68-49Lnhzrdq 2024 10:29amOxygen saturation by Pulse jchsmifb895 %95-100October 2024 10:29amBP Wofgkilf266 mm[Hg]100-140October 5 10:29amBP Ejxhjqtrp36 mm[Hg]60-100Oct2024 10:74cmAzkavn49.88 kgOct2024 8:31amBody Bartyerdyjh48.5 [degF]97.6-99.0Oct2024 8:31amHeart Rate91 /nof85-195 February 08, 2025 8:31amRespiratory rate20 /wth60-65Zefrwzj 29th, 2025 8:31am Oxygen saturation by Pulse ryyvmjlk64 %95-100Oct2024 8:31amBP Rvsmdoro401 mm[Hg]100-140Oct2024 8:31amBP Yrbpwypkc32 mm[Hg]60-100 February 08, 2025 8:31amInhaled oxygen flow rate4 L/minOctflaget memorial hospital 2024 8:73fhIlwvue48 [in_i]February 10, 2025 5:65rhEdmmux38.42 kgOctflaget memorial hospital 2024 5:44amHeart Rate96 /naf76-214Tzhjxps 31st, 2025 5:44amRespiratory rate18 /min 12-24Oct2024 5:44amOxygen saturation by Pulse zzmejwtn28 %95-100 February 10, 2025 5:44amBP Cgbotzcu161 mm[Hg]100-140Oct2024 5:44amBP Xmgwxfzmp98 mm[Hg]60-100Oct2024 5:44amBMI (Body Mass Index)42.3 kg/t0Iwbegno2024 5:44amInhaled oxygen flow rate4 L/minOctflaget memorial hospital 2024 5:55yuPutmzi16 [in_i]February 20, 2025 1:31brNkkzkl85.88 kgNov2024 1:42pmBody Ujangijeghb85.8 [degF]97.6-99.0Nov2024 1:42pmHeart Rate 83 /ppw85-165Tgilmpqt 10th, 2025 1:42pmRespiratory rate16 /nmm61-02Kwxrqjfk 10th, 2025 1:42pmOxygen saturation by Pulse rqbhazvl636 %95-100February 20, 2025 1:42pmBP Mvibnldz782 mm[Hg]100-140Nov, 2025 1:42pmBP Pjjcnprkw32 mm[Hg]60-100February 20, 2025 1:42pmBMI (Body Mass Index)42.5 kg/k2QaimverkFebruary 20, 2025 1:10ooLsikgh81 [in_i]February 20, 2025 1:97fuMeizmh29.88 kgFebruary 20, 2025 1:42pmBody Maxwwhymudz88.6 [degF]97.6-99.0February 15, 2025 2:10pm Heart Rate82 /eew65-191SknsybzxFebruary 15, 2025 2:10pmRespiratory rate19 /apl99-75 February 15, 2025 2:10pmOxygen saturation by Pulse kfwwhypw61 %95-100February 15, 2025 2:10pmBP Bmpjgjdk820 mm[Hg]100-140February 15, 2025 2:10pmBP Psuysavus42 mm[Hg]60-100February 15, 2025 2:10pmInhaled oxygen flow rate3 L/min February 15, 2025 2:13pm Advance Directives Advance Directive Response Recorded Date/ Time Advance Directives No May 12, 2023 10:11am Insurance Providers Guarantor Alia Barnes Address [address] [address]Bgrszyb Info.Home Phone: Coverage Status Update:2025 Payer Group Member ID Coverage Type Subscriber Relationship to Subscriber Effective Date Expiration Date Medicaid [id number] Hamlin , M Id: [id number] [address] [address] Home Phone: Email: [email or web address] Ad[employer]age Id: [id number] Hamlin , M Id: [id number] [address] [address] Home Phone: Email: [email or web address] Medicaid [id number] Hamlin , M Id: [id number] [address] [address] Home Phone: Email: [email or web address] [id number] Hamlin , M Id: [id number] [address] [address] Home Phone: Email: [email or web address] PF [id number] Hamlin , M Id: [id number] [address] [address] Home Phone: Email: [email or web address] Encounter Location(s) Arrival/Admit Date Discharge/Departure Date Discharge/Departure Disposition Provider(s) Departed Physician/ Provider Office Visit [facility] November 22, 2024 11:23am November 22, 2024 11:54am Discharged to home care or self care (routine discharge) AMALIA La Departed Physician/ Provider Office Visit [facility] December 06, 2024 11:11am December 06, 2024 11:22am Discharged to home care or self care (routine discharge) AMALIA La Registered [facility] December 07, 2024 8: 42am [place] [facility] 8:30amSeptember 2024 9:15amDischarged to home care or self care (routine discharge)Alia Sims MDDeparted Emergency- Emergency RoomSeptember 2024 12:59pmSeptember 2024 5:25pmLeft against medical advice or discontinued careNon-patient / [facility] Infect DisSeptember 2024 8:56KERLINE Dunneparted Physician/Provider Office Visit-[facility] [place] AmbulatoryOctober 2024 11:13amOctober 2024 12:32pmDischarged to home care or self care (routine discharge)Alia Simseparted Physician/Provider [facility]24 9:06amOctober 2024 10:37amDischarged to home care or self care (routine discharge)Alia Simseparted Physician/Provider Office Visit-[facility] 2024 8:14amOctober 2024 8:53amDischarged to home care or self care (routine discharge)Kimberly Miranda Clinical-Lab [facility] 2024 10:17amNovember 2024 10:18amDischarged to home care or self care (routine discharge)Kimberly Miranda Physician/Provider Office [facility] 3:00pmDischarged to home care or self care (routine discharge)Sugey Cummins NP-CRegistSac[facility] 20[facility] 1:18pmAlia Sims MD Recent Diagnosis Onset Date Admit Date Cancer related pain Unknown November 22, 2024 11:23am Encounter for chemotherapy management Unknown November 22, 2024 11:23am History of iron deficiency anemia Unknown November 22, 2024 11:23am IgG myeloma Unknown November 22 11:23am Bipolar 1 disorder Unknown November 22, [...] adult Unkn own November 22, 2024 11:23am Pruritic erythematous rash Unknown Augus t 2024 11:23am Venous stasis dermatitis of both lower extremities Unknown November 22, 2024 11:23am Cancer related pain Unknown December 06, 2024 11:11am Encounter for chemotherapy management Unknown December 06, 2024 11:11am History of iron deficiency anemia Unknown December 06, 2024 11:11am IgG myeloma Unknown December 06 11:11am Bipolar 1 disorder Unknown December 06, [...] adult Unkn own December 06, 2024 11:11am Pruritic erythematous rash Unknown Augus t 2024 11:11am Venous stasis dermatitis of both lower extremities Unknown December 06, 2024 11:11am Cancer related pain Unknown December 212024 8:30am Encounter for chemotherapy management Unknown December 21, 2024 8:30am History of iron deficiency anemia Unknown December 21, 2024 8:30am IgG myeloma Unknown December 21, 2024 8:30am Bipolar 1 disorder Unknown December 8:30am COPD (chronic obstructive pulmonary disease) Unk nown December 21, 2024 8:30am 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 Unknown December 21, 2024 8:30am Hypertension Unknown December 21, 2024 8:30am CKD (chronic kidney disease) stage 3, GFR 30-59 ml/min Unknown December 21, 2024 8:30am Fever of unknown origin (FUO) Unknown Se pt2024 8:30am Morbid obesity with BMI of 45.0-49.9, adult Unkn own December 21, 2024 8:30am Pruritic erythematous rash Unknown Septe 2024 8:30am Venous stasis dermatitis of both lower extremities Unknown December 21, 2024 8:30am BMI 40.0-44.9, adult Unknown December 122024 8:56am Encounter for chemotherapy management Unknown December 27, 2024 8:56am IgG myeloma Unknown December 27, 2024 8:56am On home oxygen therapy Unknown December 27, 2024 8:56am Stage 3b [...] 8:56am TANYA (obstructive sleep apnea) Unknown Se pt2024 8:56am Acute kidney injury superimposed on CKD Unknown December 27, 2024 8:56am Hypokalemia Unknown December 27, 2024 8:56am Neutropenia Unknown December 27, 2024 8:56am Neutropenic fever Unknown December 8:56am Pneumonia Unknown December 27, 2024 8:56am Acute ITP Unknown December 27, 2024 8:56am Cancer related pain Unknown January 18, 2025 11:13am Encounter for chemotherapy management Unknown January 18, 2025 11:13am History of iron deficiency anemia Unknown January 18, 2025 11:13am IgG myeloma Unknown January 18 11:13am Thrombocytopenia Unknown January 18 11:13am Bipolar 1 disorder Unknown January 18, 2025 11:13am COPD (chronic obstructive pulmonary disease) Unk nowJanuary 18, 2025 11:13am 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 Unknown January 18, 2025 11:13am Hypertension Unknown January 18 11:13am CKD (chronic kidney disease) stage 3, GFR 30-59 ml/min Unknown January 18, 2025 11:13am Morbid obesity with BMI of 45.0-49.9, adult Unkn own January 18, 2025 11:13am Pruritic erythematous rash Unknown 2024 11:13am Venous stasis dermatitis of both lower extremities Unknown January 18, 2025 11:13am Cancer related pain Unknown January 9:06am Encounter for chemotherapy management Unknown February 08, 2025 9:06am History of iron deficiency anemia Unknown February 08, 2025 9:06am IgG myeloma Unknown February 08 9:06am Thrombocytopenia Unknown February 08, 2 025 9:06am Bipolar 1 disorder Unknown February 08, 2025 9:06am COPD (chronic obstructive pulmonary disease) Unk nown February 08, 2025 9:06am 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 Unknown February 08, 2025 9:06am Hypertension Unknown October 29th, 20 25 9:06am CKD (chronic kidney disease) stage 3, GFR 30-59 ml/min Unknown February 08, 2025 9:06am Morbid obesity with BMI of 45.0-49.9, adult Unkn own February 08, 2025 9:06am Pruritic erythematous rash Unknown Octob er 2024 9:06am Venous stasis dermatitis of both lower extremities Unknown February 08, 2025 9:06am Hypothyroidism Unknown February 10 8:14am Medicare annual wellness visit, initial Unknown February 10, 2025 8:14am Type 2 diabetes mellitus wit h diabetic neuropathy, unspecified Unknown February 10, 2025 8:14am Chronic hypercapnic respiratory failure Unknown February 10, 2025 8:14am Cancer related pain Unknown February 1:17pm Encounter for chemotherapy management Unknown February 20, 2025 1:17pm History of iron deficiency anemia Unknown February 20, 2025 1:17pm IgG myeloma Unknown February 20, 025 1:17pm Thrombocytopenia Unknown February 20, 2025 1:17pm Bipolar 1 disorder Unknown February 1:17pm COPD (chronic obstructive pulmonary disease) Unk nown February 20, 2025 1:17pm 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 Unknown February 20, 2025 1:17pm Hypertension Unknown February 20, 025 1:17pm CKD (chronic kidney disease) stage 3, GFR 30-59 ml/min Unknown February 20, 2025 1:17pm Morbid obesity with BMI of 45.0-49.9, adult Unkn own February 20, 2025 1:17pm Pruritic erythematous rash Unknown 2024 1:17pm Venous stasis dermatitis of both lower extremities Unknown February 20, 2025 1:17pm COPD (chronic obstructive pulmonary disease) Unk nown February 20, 2025 1:18pm 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 Unknown February 20, 2025 1:18pm 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) Unknown February 1:18pm CKD (chronic kidney disease) stage 3, GFR 30-59 ml/min Unknown February 20, 2025 1:18pm Iron deficiency anemia Unknown February 20, 2025 1:18pm Bipolar disorder with depression Unknown February 20, 2025 1:18pm Diabetes Unknown February 20 1:18pm Morbid obesity Unknown February 20 1:18pm Assessments Diagnosis Onset Date Resolution Status Admit Date Cancer related pain acuteAugust 2024 11:23amEncounter for chemotherapy managementacuteAugust 2024 11:23amHistory of iron deficiency anemiaacuteAugust 2024 11:23amIgG myelomaacuteAugust 2024 11:23amBipolar 1 disorderchronicAugust 2024 11:23amCOPD (chronic obstructive pulmonary disease)chronicAugust 2024 11:23amDiabetic neuropathy associated with diabetes mellitus due to underlyingchronicAugust 2024 11:23amHypertensionchronicAugust 2024 11:23amCKD (chronic kidney disease) stage 3, GFR 30-59 ml/minresolvedAugust 2024 11:23amMorbid obesity with BMI of 45.0-49.9, adultresolvedAugust 2024 11:23amPruritic erythematous rashresolvedAugust 2024 11:23am Venous stasis dermatitis of both lower extremitiesresolvedAugust 2024 11:23amCancer related painacuteAugust 2024 11:11amEncounter for chemotherapy managementacuteAugust 2024 11:11amHistory of iron deficiency anemiaacuteAugust 2024 11:11amIgG myelomaacuteAugust 2024 11:11am Bipolar 1 disorderchronicAugust 2024 11:11amCOPD (chronic obstructive pulmonary disease)chronicAugust 2024 11:11amDiabetic neuropathy associated with diabetes mellitus due to underlyingchronicAugust 2024 11:11am HypertensionchronicAugust 2024 11:11amCKD (chronic kidney disease) stage 3, GFR 30-59 ml/minresolvedAugust 2024 11:11amMorbid obesity with BMI of 45.0-49.9, adultresolvedAugust 2024 11:11amPruritic erythematous rash resolvedAugust 2024 11:11amVenous stasis dermatitis of both lower extremitiesresolvedAugust 2024 11:11amCancer related painacuteSeptember 2024 8:30amEncounter for chemotherapy managementacuteSept2024 8:30amHistory of iron deficiency anemiaacuteSeptember 2024 8:30amIgG myelomaacuteSept2024 8:30amBipolar 1 disorderchronicSeptember 2024 8:30amCOPD (chronic obstructive pulmonary disease)chronicSept2024 8:30amDiabetic neuropathy associated with diabetes mellitus due to underlyingchronicSeptember 2024 8:30amHypertensionchronicSeptember 2024 8:30amCKD (chronic kidney disease) stage 3, GFR 30-59 ml/minresolved December 21, 2024 8:30amFever of unknown origin (FUO)resolvedSept2024 8:30amMorbid obesity with BMI of 45.0-49.9, adultresolvedptsan carlos [facility] 2024 8:30amPruritic erythematous rashresolvedptsan [facility]los [facility] 2024 8:30amVenous stasis dermatitis of both lower extremitiesresolvedpt2024 8:30am BMI 40.0-44.9, adultacuteSeptember 2024 8:56amEncounter for chemotherapy managementacuteSeptember 2024 8:56amIgG myelomaacuteSeptember 2024 8:56amOn home oxygen therapyacuteSept2024 8:56amStage 3b chronic kidney diseaseacuteSeptember 2024 8:56amThrombocytopeniaacuteSept2024 8:56amType 2 diabetes mellitus with diabetic neuropathy, unspecified acuteSeptember 2024 8:56amBipolar 1 disorderchronicSeptember 2024 8:56amCOPD (chronic obstructive pulmonary disease)chronicSeptember 2024 8:56amHypertensionchronicSeptember 2024 8:56amOSA (obstructive sleep apnea)chronicSeptember 2024 8:56amAcute kidney injury superimposed on CKD resolvedSeptember 2024 8:56amHypokalemiaresolvedSeptember 2024 8:56amNeutropeniaresolvedSeptember 2024 8:56amNeutropenic feverresolved December 27, 2024 8:56amPneumoniaresolvedSeptember 2024 8:56amAcute ITP deletedSeptember 2024 8:56amCancer related painacuteOctober 2024 11:13amEncounter for chemotherapy managementacuteOct2024 11:13am History of iron deficiency anemiaacuteOct2024 11:13amIgG myelomaacute January 18, 2025 11:13amThrombocytopeniaacuteOct2024 11:13amBipolar 1 disorderchronicOctober 2024 11:13amCOPD (chronic obstructive pulmonary disease)chronicOctober 2024 11:13amDiabetic neuropathy associated with diabetes mellitus due to underlyingchronicOctober 2024 11:13amHypertension chronicOctober 2024 11:13amCKD (chronic kidney disease) stage 3, GFR 30-59 ml/minresolvedOctober 2024 11:13amMorbid obesity with BMI of 45.0-49.9, adultresolvedOctober 2024 11:13amPruritic erythematous rashresolvedOct2024 11:13amVenous stasis dermatitis of both lower extremitiesresolved January 18, 2025 11:13amCancer related painacuteOctober 2024 9:06am Encounter for chemotherapy managementacuteOctober 2024 9:06amHistory of iron deficiency anemiaacuteOctober 2024 9:06amIgG myelomaacuteOctober 2024 9:06amThrombocytopeniaacuteOctober 2024 9:06amBipolar 1 disorderchronicOctober 2024 9:06amCOPD (chronic obstructive pulmonary disease)chronicOctober 2024 9:06amDiabetic neuropathy associated with diabetes mellitus due to underlyingchronicOctober 2024 9:06amHypertension chronicOctober 2024 9:06amCKD (chronic kidney disease) stage 3, GFR 30-59 ml/minresolvedOctober 2024 9:06amMorbid obesity with BMI of 45.0-49.9, adultresolvedOctober 2024 9:06amPruritic erythematous rashresolvedOctober 2024 9:06amVenous stasis dermatitis of both lower extremitiesresolved February 08, 2025 9:06amHypothyroidismacuteOctober 2024 8:14amMedicare annual wellness visit, initialacuteOctober 2024 8:14amType 2 diabetes mellitus with diabetic neuropathy, unspecifiedacuteOctober 2024 8:14am Chronic hypercapnic respiratory failurechronicOctober 2024 8:14amCancer related painacuteNov2024 1:17pmEncounter for chemotherapy management acuteNov2024 1:17pmHistory of iron deficiency anemiaacuteNov2024 1:17pmIgG myelomaacuteNov2024 1:17pmThrombocytopeniaacute February 20, 2025 1:17pmBipolar 1 disorderchronicSandhills [facility]20[facility] 1:17pm COPD (chronic obstructive pulmonary disease)chronicSandhills [facility]2024 1:17pm Diabetic neuropathy associated with diabetes mellitus due to underlyingchronic February 20, 2025 1:17pmHypertensionchronicSandhills Regional Medical Center2024 1:17pmCKD (chronic kidney disease) stage 3, GFR 30-59 ml/minresB[facility] 20[facility] 1:17pmMorbid obesity with BMI of 45.0-49.9, adultresBryn Mawr Hospital 2024 1:17pmPruritic erythematous rashresadams county hospitalNovsan [facility]los [facility] 2024 1:17pmVenous stasis dermatitis of both lower extremitiesresolvedNov2024 1:17pmCOPD (chronic obstructive pulmonary disease)chronicNov2024 1:18pm Degenerative joint disease of cervical and lumbar spinechronicSandhills Regional Medical Center2024 1: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)chronicNov2024 1:18pmCKD (chronic kidney disease) stage 3, GFR 30-59 ml/minresolvedSpring [facility] 2024 1:18pmIron deficiency anemiaresolvedSandhills Regional Medical Center2024 1:18pmBipolar disorder with depressioninactive February 20, 2025 1:18pmDiabetesinactiveNov2024 1:18pmMorbid obesityinactiveNov2024 1:18pm Plan of Treatment Author Sugey Cummins [facility] 20[facility] 3:21pm10/27/2024: We reviewed recommendations of [facility] malignant hematology tumor board: Due to meeting [...] a creatinine of 1.64 correlating to EGFR, [id number]-Yfhyxug-Zfrvvrop 32. This has not significantly changed over the last year but is lower than prior labs from [id number]. Most recent calcium within normal limits and [...] the last 3 weeks since last visit. [facility] Malignant Hematology Tumor Board agrees with active [...] will discuss this with malignant hematology at [facility] malignant hematology and we may add this in if Darzalex, Revlimid, dexamethasone is well-tolerated. She will follow-up with ct cycle 1 week 3 of therapy for toxicity visit. High complexity 45-minute follow- up to review [facility] Malignant Hematology Tumor Board recommendations and informed [...] her bone marrow and PET/CT review at [facility] Hematology tumor board 10/20/2024 regarding indications [...] mental health issues on current medications. Author Peri Tyson [facility] HospitalAuthoredOctober 2024 8:15amDue for annual mammogram Due for DEXA Due for colonoscopy with hx of polyps, referred Up to date on RSV, Prevnar 20, TdaP, Shingrix vaccines, to get flu shot at pharmacy Reviewed recent screening lab work Sugars uncontrolled recently on current dose of Ozempic, Farxiga, Novolog and Basaglar. She states she has appointment upcoming with her dump motor operator, Dr. Aguilar in a couple weeks. Denies any symptoms Due for TFTs Remains on supplemental O2 4-5L 24h/day Author Sugey Cummins [facility] HospitalMarianna 2024 1:30pm10/27/2024: We reviewed recommendations of [facility] malignant hematology tumor board: Due to meeting [...] a creatinine of 1.64 correlating to EGFR, wkw-Lsvbnrv-Pluodkhx 32. This has not significantly changed over the last year but is lower than prior labs from 9628-9735. Most recent calcium within normal limits and [...] the last 3 weeks since last visit. [facility] Malignant Hematology Tumor Board agrees with active [...] will discuss this with malignant hematology at [facility] malignant hematology and we may add this in if Darzalex, Revlimid, dexamethasone is well-tolerated. She will follow-up with ct cycle 1 week 3 of therapy for toxicity visit. High complexity 45-minute follow- up to review [facility] Malignant Hematology Tumor Board recommendations and informed [...] her bone marrow and PET/CT review at [facility] Hematology tumor board 10/20/2024 regarding indications [...] 4 days then stop Author Roxane Bills [facility] HospitalAuthoredOctober 2024 11:22amNow 64-year old patient who reports chronic fatigue, progressive increase in weight and she is noted to have a BMI of 49. She has mild anemia with most recent hemoglobin 11.6, elevated erythrocyte sedimentation rate of 65, most recent renal function panel showed a creatinine of 1.64 correlating to EGFR, okf-[id number]-Immpphwc 32. This has not significantly changed over the last year but is lower than prior labs from 2721-7027. Most recent calcium within normal limits and [...] the last 3 weeks since last visit. [facility] Malignant Hematology Tumor Board agrees with active [...] will discuss this with malignant hematology at [facility] malignant hematology and we may add this in if Darzalex, Revlimid, dexamethasone is well-tolerated. She will follow-up with me cycle 1 week 3 of therapy for toxicity visit. High complexity 45-minute follow- up to review [facility] Malignant Hematology Tumor Board recommendations and informed [...] combination of myelosuppression from Revlimid and/or ITP). 02/08/2025: Platelet count has recovered to 110,000 and white blood cells now normal at 7000. We reviewed her myeloma symptoms with significant improvement of peripheral neuropathy and back pain since starting therapy. In addition M spike is now not detectable and both IgG level and serum kappa lambda light chain ratio have significantly improved since start of therapy suggesting response. She agrees to resume therapy with weekly Darzalex Faspro 1800 mg subcu weekly which is ordered for today. She will also have weekly dexamethasone 20 mg and agrees to resume Revlimid at lower dose 10 mg daily days 1 through 14 every 28-day cycle. 2-week follow-up with nurse practitioner and continue weekly CBCs. If she is stable on therapy I will see her 6 weeks after her PLATE SHEAR OPERATOR follow-up with repeat myeloma labs (CBC, CMP, LDH, serum and urine protein electrophoresis with immunofixation, quantitative immunoglobulins, and kappa/lambda light chain analysis at that time). She may return sooner if new issues arise. Moderate complexity 35-minute follow-up. 10/27/2024: We reviewed recommendations of [facility] malignant hematology tumor board: Due to meeting [...] (will resume 10mg daily if plt >100,000) 02/08/2025: Orders to resume Cycle 2 week 15 Daratumumab + Dexamethasone. Okay to resume Revlimid 10 mg daily for 2 weeks on 2 weeks off each cycle with weekly CBCs, partial response to therapy by imaging studies. Toxicity check with PLATE SHEAR OPERATOR in 2 weeks. Due to severe thrombocytopenia during hospital stay [...] Followup in 3 weeks for toxicity check. 02/08/2025: She has had Revlimid on hold since hospitalization in mid December with platelet count now returned to 110,000. This was likely toxicity from Revlimid and she agrees to resume therapy with 10 mg daily for 2 weeks on 2 weeks off. Will continue to follow weekly CBCs and adjust dose as needed. She has known diabetes and notes that blood sugars have been under stable control. This also may be a contributing factor for her neuropathy, however increasing symptoms with increased M-spike and kappa light chain were concerning for possible progression to myeloma. We reviewed her bone marrow and PET/CT review at [facility] Hematology tumor board 10/20/2024 regarding indications for treatment and potential regimen. Avoid bortezomib with regimen due to baseline peripheral neuropathy. 11/22/2024: Continue working with Dr. Aguilar for sugar issues. 01/18/2025: Most recent glucose is 377--will coordinate adjustment of diabetes medications by Dr. Aguilar. Mild improvement of neuropathy since start of therapy. Continue to follow. 02/08/2025: Patient still has poorly controlled diabetes and is followed by Dr. Aguilar. Her weekly dexamethasone may be decreased from 40 mg to 20 mg weekly. Chronic stable CKD stage IIIb--creatinine clearance now improved to 49. Elevated beta-2 microglobulin is likely due to [...] of requiring hydrocodone or other pain meds. --01/18/2025, 02/08/2025: Bone pain and peripheral neuropathy improving since start of therapy November 2024. Chronic O2 dependence, currently 3-5 L nasal cannula. No recent infections or clinical changes (negative cultures and respiratory panel during admission and FUO workup above). The patient previously saw dermatology for pruritic erythematous rash over the previous 6 to 9 months which did not improve with medication. She has multiple areas of excoriation when [...] pruritic rash. Continue follow-up with primary care. Blood pressure is normal range today. Continue follow-up with primary care for blood pressure control. Continue to observe after resuming Darzalex, dexamethasone, and Revlimid therapy. 04/23/2022: No improvement in symptoms or iron [...] 12/21-01/17. Continue to hold Revlimid until platelets >100,000. 02/08/2025: Today we will will resume weekly Darzalex Faspro and Dexamethasone with lower dose Revlimid now the platelets are greater than 100,000. Morbid obesity, continue follow-up with primary physician. Relatively stable weight since start of therapy. No recent mental health issues on current medications. Author Roxane Bills [facility] HospitalAuthoredSeptember 2024 8:50am10/27/2024: We reviewed recommendations of [facility] malignant hematology tumor board: Due to meeting [...] a creatinine of 1.64 correlating to EGFR, qrt-Etjeudb-Nlmrmcin 32. This has not significantly changed over the last year but is lower than prior labs from 7329-9649. Most recent calcium within normal limits and [...] the last 3 weeks since last visit. [facility] Malignant Hematology Tumor Board agrees with active [...] will discuss this with malignant hematology at [facility] malignant hematology and we may add this in if Darzalex, Revlimid, dexamethasone is well-tolerated. She will follow-up with ct cycle 1 week 3 of therapy for toxicity visit. High complexity 45-minute follow- up to review [facility] Malignant Hematology Tumor Board recommendations and informed [...] her bone marrow and PET/CT review at [facility] Hematology tumor board 10/20/2024 regarding indications [...] after her FUO workup. Author Roxane Bills [facility] HospitalAuthoredOctober 2024 7:50pm10/27/2024: We reviewed recommendations of [facility] malignant hematology tumor board: Due to meeting [...] a creatinine of 1.64 correlating to EGFR, rrr-Xknpwpy-Jpuauuyy 32. This has not significantly changed over the last year but is lower than prior labs from [id number]. Most recent calcium within normal limits and [...] the last 3 weeks since last visit. [facility] Malignant Hematology Tumor Board agrees with active [...] will discuss this with malignant hematology at [facility] malignant hematology and we may add this in if Darzalex, Revlimid, dexamethasone is well-tolerated. She will follow-up with me cycle 1 week 3 of therapy for toxicity visit. High complexity 45-minute follow- up to review [facility] Malignant Hematology Tumor Board recommendations and informed [...] her bone marrow and PET/CT review at [facility] Hematology tumor board 10/20/2024 regarding indications [...] Followup in 3 weeks for toxicity check. Author Sugey Cummins [facility] HospitalAuthoredNovember 2024 2:52pm/: We reviewed recommendations of [facility] malignant hematology tumor board: Due to meeting [...] (will resume 10mg daily if plt >100,000) 02/08/2025: Orders to resume Cycle 2 week 15 Daratumumab + Dexamethasone. Okay to resume Revlimid 10 mg daily for 2 weeks on 2 weeks off each cycle with weekly CBCs, partial response to therapy by imaging studies. Toxicity check with PLATE SHEAR OPERATOR in 2 weeks. 02/20/2025: Toxicity check with DEIRDRE Cummins. She had resumed daratumumab+ Dexamethason, and revlimid. Discussed platelets with Dr. Bills. Okay to continue of Revlmid 10mg 2 week on 2 weeks off. If platlets less than 80, will drop to 5mg. Now 64-year old patient who reports chronic fatigue, progressive increase in weight and she is noted to have a BMI of 49. She has mild anemia with most recent hemoglobin 11.6, elevated erythrocyte sedimentation rate of 65, most recent renal function panel showed a creatinine of 1.64 correlating to EGFR, [id number]-Strytoif 32. This has not significantly changed over the last year but is lower than prior labs from [id number]. Most recent calcium within normal limits and [...] the last 3 weeks since last visit. [facility] Malignant Hematology Tumor Board agrees with active [...] will discuss this with malignant hematology at [facility] malignant hematology and we may add this in if Darzalex, Revlimid, dexamethasone is well-tolerated. She will follow-up with me cycle 1 week 3 of therapy for toxicity visit. High complexity 45-minute follow- up to review [facility] Malignant Hematology Tumor Board recommendations and informed [...] combination of myelosuppression from Revlimid and/or ITP). 02/08/2025: Platelet count has recovered to 110,000 and white blood cells now normal at 7000. We reviewed her myeloma symptoms with significant improvement of peripheral neuropathy and back pain since starting therapy. In addition M spike is now not detectable and both IgG level and serum kappa lambda light chain ratio have significantly improved since start of therapy suggesting response. She agrees to resume therapy with weekly Darzalex Faspro 1800 mg subcu weekly which is ordered for today. She will also have weekly dexamethasone 20 mg and agrees to resume Revlimid at lower dose 10 mg daily days 1 through 14 every 28-day cycle. 2-week follow-up with nurse practitioner and continue weekly CBCs. If she is stable on therapy I will see her 6 weeks after her [facility] [facility]PERATOR follow-up with repeat myeloma labs (CBC, CMP, LDH, serum and urine protein electrophoresis with immunofixation, quantitative immunoglobulins, and kappa/lambda light chain analysis at that time). She may return sooner if new issues arise. Moderate complexity 35-minute follow-up. 02/20/2025: Toxicity check with DEIRDRE Cummins. Due to severe thrombocytopenia during hospital stay [...] Followup in 3 weeks for toxicity check. 02/08/2025: She has had Revlimid on hold since hospitalization in mid December with platelet count now returned to 110,000. This was likely toxicity from Revlimid and she agrees to resume therapy with 10 mg daily for 2 weeks on 2 weeks off. Will continue to follow weekly CBCs and adjust dose as needed. 02/20/2025: Toxicity check with DEIRDRE Cummins. She has known diabetes and notes that blood sugars have been under stable control. This also may be a contributing factor for her neuropathy, however increasing symptoms with increased M-spike and kappa light chain were concerning for possible progression to myeloma. We reviewed her bone marrow and PET/CT review at [facility] Hematology tumor board 10/20/2024 regarding indications for treatment and potential regimen. Avoid bortezomib with regimen due to baseline peripheral neuropathy. 11/22/2024: Continue working with Dr. Aguilar for sugar issues. 01/18/2025: Most recent glucose is 377--will coordinate adjustment of diabetes medications by Dr. Aguilar. Mild improvement of neuropathy since start of therapy. Continue to follow. 02/08/2025: Patient still has poorly controlled diabetes and is followed by Dr. Aguilar. Her weekly dexamethasone may be decreased from 40 mg to 20 mg weekly. 02/20/2025: Toxicity check with DEIRDRE Cummins. Chronic stable CKD stage IIIb--creatinine clearance now improved to 49. Elevated beta-2 microglobulin is likely due to [...] of requiring hydrocodone or other pain meds. --01/18/2025, 02/08/2025: Bone pain and peripheral neuropathy improving since start of therapy November 2024. Chronic O2 dependence, currently 3-5 L nasal cannula. No recent infections or clinical changes (negative cultures and respiratory panel during admission and FUO workup above). The patient previously saw dermatology for pruritic erythematous rash over the previous 6 to 9 months which did not improve with medication. She has multiple areas of excoriation when [...] pruritic rash. Continue follow-up with primary care. Blood pressure is normal range today. Continue follow-up with primary care for blood pressure control. Continue to observe after resuming Darzalex, dexamethasone, and Revlimid therapy. 04/23/2022: No improvement in symptoms or iron [...] 12/21-01/17. Continue to hold Revlimid until platelets >100,000. 02/08/2025: Today we will will resume weekly Darzalex Faspro and Dexamethasone with lower dose Revlimid now the platelets are greater than 100,000. Morbid obesity, continue follow-up with primary physician. Relatively stable weight since start of therapy. No recent mental health issues on current medications. Future Tests Future scheduled test information is unavailable Pending Tests Test Name Ordered Date Scheduled Date Comprehensive Metabolic Panel February 08, 2025 11:07am Comprehensive Metabolic PanelOctober 2024 11:07am1 DaysComprehensive Metabolic PanelOctober 2024 11:07am1 DaysComprehensive Metabolic Panel February 08, 2025 11:07am1 DaysComprehensive Metabolic PanelOctober 2024 11:07am1 DaysComprehensive Metabolic PanelOctober 2024 11:07am1 DaysXR dexa axial skeletonOctober 2024 7:52amMM screening mammo BI w/CADOctober 2024 7:52am Future Visits Future appointment information is unavailable Future Procedures Procedure Name Ordered Date Scheduled Date Complete Blood Count Auto Diff February 08 11:07am Complete Blood Count Auto DiffOctober 2024 11:07am1 DaysComplete Blood Count Auto DiffOctober 2024 11:07am1 DaysComplete Blood Count Auto Diff February 08, 2025 11:07am1 DaysComplete Blood Count Auto DiffOctober 2024 11:07am1 DaysComplete Blood Count Auto DiffOctober 2024 11:07am1 DaysBone Marrow BiopsyJune 2021 9:49am1 DaysOncology Outpatient Referral To: March 04, 2023 1:45pm1 DaysEjection fraction>=40%November 06, 2024 2:26pm November 13, 2024 11:00pmEjection fraction>=40%November 06, 2024 2:pmAugust 2024 11:00pmEjection fraction>=40%December 02, 2024 1:35pmSeptember 2024 11:00pmEjection fraction>=40%December 02, 2024 1:35pmSeptember 2024 11:00pm Ejection fraction>=40%December 02, 2024 1:35pmOctober 2024 11:00pmEjection fraction>=40%November 06, 2024 2:pmAugust 2024 11:00pmAST/ALT>ULN OR BILI >ULNJuly 2024 2:pmAugust 2024 11:00pmAST/ALT>ULN OR BILI >ULNJuly 2024 2:pmAugust 2024 11:00pmAST/ALT>ULN OR BILI >ULNAugust 2024 1:35pmSeptember 2024 11:00pmAST/ALT>ULN OR BILI >ULNJuly 2024 2:pmAugust 2024 11:00pmAST/ALT>ULN OR BILI >ULNAugust 2024 1:35pm December 12, 2024 11:00pmAST/ALT>ULN OR BILI >ULNAugust 2024 1:35pm February 07, 2025 11:00pmANC>=1000July 2024 2:pmAugust 2024 11:00pmANC>=1000July 2024 2:26pmAugust 2024 11:00pmANC>=1000July 2024 2:26pmAugust 2024 11:00pmANC>=1000July 2024 2:pmAugust 2024 11:00pmANC>=1000August 2024 1:35pmSeptember 2024 11:00pm ANC>=1000August 2024 1:35pmSeptember 2024 11:00pmANC>=1000August 2024 1:35pmOctober 2024 11:00pmANC>=1000August 2024 1:35pm February 15, 2025 12:00amHold & Call Ordering Physician if Pt Does Not Meet CriteriaAugust 2024 1:35pmSeptember 2024 11:00pmHold & Call Ordering Physician if Pt Does Not Meet CriteriaJuly 2024 2:26pmAugust 2024 11:00pmHold & Call Ordering Physician if Pt Does Not Meet CriteriaJuly 2024 2:26pmAugust 2024 11:00pmHold & Call Ordering Physician if Pt Does Not Meet CriteriaJuly 2024 2:26pmAugust 2024 11:00pmHold & Call Ordering Physician if Pt Does Not Meet CriteriaJuly 2024 2:26pmAugust 2024 11:00pmHold & Call Ordering Physician if Pt Does Not Meet Criteria December 02, 2024 1:35pmSeptember 2024 11:00pmHold & Call Ordering Physician if Pt Does Not Meet CriteriaAugust 2024 1:35pmOctober 2024 11:00pmHold & Call Ordering Physician if Pt Does Not Meet CriteriaAugust 2024 1:35pmNovember 2024 12:00amApply O2 via Nasal Cannula 4L to Maintain SpO2 of >=90%April 25, 2022 1:18pmJanuary 2022 12:00amApply O2 via Nasal Cannula 4L to Maintain SpO2 of >=90%November 06, 2024 2:pmAugust 2024 11:00pmApply O2 via Nasal Cannula 4L to Maintain SpO2 of >=90%November 06, 2024 2:pmAugust 2024 11:00pmApply O2 via Nasal Cannula 4L to Maintain SpO2 of >=90%November 06, 2024 2:pmAugust 2024 11:00pmApply O2 via Nasal Cannula 4L to Maintain SpO2 of >=90%December 02, 2024 1:35pmSeptember 2024 11:00pm Apply O2 via Nasal Cannula 4L to Maintain SpO2 of >=90%December 02, 2024 1:35pm February 15, 2025 12:00amApply O2 via Nasal Cannula 4L to Maintain SpO2 of >=90%April 25, 2022 1:18pmJanuary 2022 12:00amApply O2 via Nasal Cannula 4L to Maintain SpO2 of >=90%April 25, 2022 1:18pmJanuary 2022 12:00amApply O2 via Nasal Cannula 4L to Maintain SpO2 of >=90%November 06, 2024 2:26pmAugust 2024 11:00pmApply O2 via Nasal Cannula 4L to Maintain SpO2 of >=90%December 02, 2024 1:35pmSeptember 2024 11:00pmApply O2 via Nasal Cannula 4L to Maintain SpO2 of >=90%December 02, 2024 1:35pmOctober 2024 11:00pmOrders Panel Function Communication OrderJanuary 2022 12:09pm April 30, 2022 12:09pmOrders Panel Function Communication OrderAugust 2024 7:36amAugust 2024 7:36amOrders Panel Function Communication Order December 13, 2024 8:50amSeptember 2024 8:50amOrders Panel Function Communication OrderSeptember 2024 9:37amSeptember 2024 9:37amOrders Panel Function Communication OrderOctober 2024 9:17amOctober 2024 9:17amOrders Panel Function Communication OrderNovember 2024 2:26pmNovember 2024 2:26pmOrders Panel Function Communication OrderAugust 2024 7:35amAugust 2024 7:35amOrders Panel Function Communication OrderAugust 2024 7:37amAugust 2024 7:37amOrders Panel Function Communication Order November 21, 2024 10:46amAugust 2024 10:46amOrders Panel Function Communication OrderAugust 2024 1:30pmAugust 2024 1:30pmOrders Panel Function Communication OrderSeptember 2024 10:07amSeptember 2024 10:07amOrders Panel Function Communication OrderSeptember 2024 3:13pm December 28, 2024 3:13pmOrders Panel Function Communication OrderOctober 2024 1:28pmOctober 2024 1:28pmOrders Panel Function Communication OrderOctober 2024 1:45pmOctober 2024 1:45pmOrders Panel Function Communication OrderNovember 2024 2:26pmNovember 2024 2:26pmOrders Panel Function Communication OrderNovember 2024 1:54pmNovember 2024 1:54pmPlatelets>=50,000July 2024 2:26pmAugust 2024 11:00pm Platelets>=50,000August 2024 1:35pmSeptember 2024 11:00pm Platelets>=50,000August 2024 1:35pmSeptember 2024 11:00pm Platelets>=50,000August 2024 1:35pmOctober 2024 11:00pm Platelets>=50,000August 2024 1:35pmNovember 2024 12:00am Platelets>=50,000July 2024 2:26pmAugust 2024 11:00pmPlatelets>=50,000 Iza 2024 2:26pmAugust 2024 11:00pmPlatelets>=50,000July 2024 2:26pmAugust 2024 11:00pmProceed with TreatmentSept2024 10:06am December 12, 2024 11:00pmNo Growth FactorJuly 2024 2:pmAugust 2024 11:00pmNo Growth FactorAugust 2024 1:35pmSeptember 2024 11:00pm Increase in systolic blood pressure of greater than 30 mmHg from baselineJuly 2024 2:26pmAugust 2024 11:00pmIncrease in systolic blood pressure of greater than 30 mmHg from baselineJuly 2024 2:26pmAugust 2024 11:00pmIncrease in systolic blood pressure of greater than 30 mmHg from baseline December 02, 2024 1:35pmOctober 2024 11:00pmIncrease in systolic blood pressure of greater than 30 mmHg from baselineJuly 2024 2:26pmAugust 2024 11:00pmIncrease in systolic blood pressure of greater than 30 mmHg from baselineAugust 2024 1:35pmSeptember 2024 11:00pmIncrease in systolic blood pressure of greater than 30 mmHg from baselineAugust 2024 1:35pm December 20, 2024 11:00pmDiet SupplementSeptember 2024 12:38pmSeptember 2024 12:38pmAdmit Status OrderSeptember 2024 7:56amSeptember 2024 7:56amConsult to Infectious DiseasesSeptember 2024 9:56amSeptember 2024 9:56amConsult to OncologySeptember 2024 9:39amSeptember 2024 9:39amOrders Panel Function Communication OrderSeptember 2024 1:06pm December 27, 2024 1:06pmContraindication No VTE ProphylaxisSeptember 2024 9:44amSeptember 2024 9:45amContraindication No VTE Prophylaxis December 27, 2024 9:44amSeptember 2024 9:45amComplete Blood Count Auto DiffNov2024 2:22pmComplete Blood Count Auto DiffNov2024 2:22pmComplete Blood Count Auto DiffNov2024 2:22pmComplete Blood Count Auto DiffNov2024 2:22pmComplete Blood Count Auto DiffNov2024 2:22pmIron and TIBC ProfileNov2024 2:15pm1 WeeksFerritin February 20, 2025 2:15pm1 Weeks Future Medications Future medication information is unavailable Patient Instructions Instruction Admit Date Know your Meds December 27, 2024 8:56am Goals Acute Goals Author Authored Date Maintain/increase activity l evels * Understands factors that may lead to activity intolerance * Helps perform self care activities * Maintains maximum range of motion * Increase/regain muscle mass and strength * Maintains VS WNL during activity * Maintain intact skin integrity Updated: [facility] 12:01pm
[2025-02-27 07:51] VITALS: BP 135/80; PULSE 103; TEMP 36.4; O2SAT 100
--- OUTSIDE RECORDS SUMMARY | 2025-02-27 07:51 | XMS_ITS | CCD ---
Author Organization [facility] ion Partnership [facility] Care Team Providers Care Professor Of Languages Name Role Phone Giovanni Moreno Unavailable Domenico Whitmore Unavailable Nicko Mckeon Unavailable Adore Barroso Unavailable Josafat Nunes Unavailable DO Giovanni Moreno Primary Care Provider [phone] MD Roxane Bills Attending Provider DO Giovanni Moreno Attending Provider DO Mohan Groves Referring Provider [phone] DO Peri Tyson Attending Provider Peri Tyson Unavailable DO Giovanni Moreno Primary Care Provider DO Giovanni Moreno Primary Care Provider DO Peri Tyson Attending Provider MD Marcus Cummins Attending Provider DO Peri Tyson Primary Care Provider DO Svetlana Garcia Referring Provider DO Giovanni Moreno Primary Care Provider DO Peri Tyson Attending Provider [phone] MD Roxane Bills Attending Provider DO Mohan [...] Tyson, DO Peri A Attending Provider MD Solomon Whitmorerey Attending Provider DO Mohan Groves Referring Provider LUCI Galicia Attending Provider MD Jeannie Aguilar Attending Provider Tyson, DO Peri A Primary Care Provider NON STAFF Attending Provider Unavailable Tyson, DO Peri A Attending Provider Tyson, DO Peri A Primary Care Provider MD Ang Murphy Attending Provider Unavailable DO Liat Jez A Attending Provider Tyson, DO Peri A Primary Care Provider [phone] MD Nik Pineda Attending Provider Patsy Harvey Unavailable MD Roxane Bills Attending Provider DO Brenden Groves Referring Provider [phone] Tyson, DO Peri A Attending Provider Tyson, DO Peri A Primary Care Provider MD Nik Pineda Attending Provider Tyson, DO Peri A Attending Provider [phone] MD Roxane Bills Attending Provider DO Brenden Groves Referring Provider [phone] Tyson, DO Peri A Primary Care Provider MD Truong Ward Attending Provider Tyson, DO Peri A Attending Provider LUCI Diehl Attending Provider Tyson, DO Peri A Primary Care Provider LUCI Diehl Attending Provider [phone] Giovanni Moreno MD Primary Care Provider MD Roxane Bills Attending Provider Tyson, DO Peri A Primary Care Provider MD Truong Ward Attending Provider Tyson, DO Peri A Primary Care Provider LUCI Diehl Attending Provider [phone] MD Jeff [facility] Attending Provider Tyson, DO Peri A Primary Care Provider LUCI Diehl Attending Provider [phone] Tyson, DO Peri A Primary Care Provider MD Truong Ward Attending Provider Tyson, DO Peri A Attending Provider MD Roxane Bills Attending Provider DO Brenden Groves Referring Provider Tyson, DO Peri A Primary Care Provider MD Truong Ward Attending Provider AMALIA London Attending Provider MD Roxane Bills Attending Provider [phone] DO Brenden Groves Referring Provider Tyson DO, Peri A Primary Care Provider Surya GILMORE-C, Rachana Garcia Attending Provider Truong Ward MD Attending Provider Roxane Bills MD Attending Provider [phone] Brenden Groves DO Referring Provider Roxane Bills MD Attending Provider Brenden Groves DO Referring Provider Tyson DO, Peri A Primary Care Provider Truong Ward MD Attending Provider Clayton Josue DOin Luis Attending Provider Tyson DO, Peri A Primary Care Provider Truong Ward MD Attending Provider Tyson DO, Peri A Attending Provider [phone] Tyson DO, Peri A Attending Provider Roxane Bills MD Attending Provider [phone] Tyson DO, Peri A Primary Care Provider Truong Ward MD Attending Provider Richard PARK, Andrius Mart Attending Unavailable Richard PARK, Andrius Veduardo Attending Unavailable Richard PARK, Andrius Vytautmarilee Attending Unavailable Bertha Martinez RN Attending Provider Unavailable Tyson DO, Peri A Primary Care Provider Roxane Bills MD Attending Provider Truong Ward MD Attending Provider Bertha Martinez RN Attending Provider Unavailable Brenden Groves DO Referring Provider Placido BUCIOC, Sugey Garcia Attending Provider Tyson DO, Peri A Primary Care Provider Roxane Bills MD Attending Provider Brenden Groves DO Referring Provider JEFF, AHMAD [...] Attending Provider Truong Ward MD Attending Provider Brenden Groves DO Referring Provider Brenden Groves DO Referring Provider Chan Santana DO Emergency Provider [phone] Erin Guevara MD Emergency Provider Margarito Rajan MD Admit Provider Margarito Rajan MD Attending Provider Guillermo Oleary DO Other Provider Margarito Rajan MD Other Provider Louis Ellsworth MD Attending Provider Louis Ellsworth MD Other Provider Tyson DO, Peir A Primary Care Provider Roxane Bills MD Attending Provider Sugey Parr Attending Provider Truong Ward MD Attending Provider Chan Santana DO Emergency Provider Erin Guevara MD Emergency Provider Satinder PARK, Margarito Admit Provider Satinder PARK, Margarito Other Provider Guillermo Oleary DO Other Provider Louis Ellsworth MD Attending Provider Louis Ellsworth MD Other Provider Giovanni Moreno MD Primary Care Provider Marbella HECK, Peri A Primary Care Provider Roxane Bills MD Attending Provider Brenden Groves DO Referring Provider Marbella HECK Peri A Attending Provider Marbella HECK Peri A Primary Care Provider Sugey Parr Attending Provider Truong Ward MD Attending Provider Roxane Bills MD Attending Provider Chan Santana DO Emergency Provider [phone] Erin Guevara MD Emergency Provider Satinder PARK, Margarito Admit Provider Margarito Rajan MD Other Provider Guillermo Oleary DO Other Provider Louis Ellsworth MD Attending Provider [phone] Louis Ellsworth MD Other Provider Marbella HECK Peri Luis Attending Provider Brenden Groves DO Referring Provider Brenden Groves DO Referring Provider [phone] SanjuRoxane lund Admitting Unavailable Sanju, Roxane Attending Unavailable Tyson, Peri A Primary Care Unavailable Brenden Groves Referring Unavailab le Tyson, Peri A Primary Care Unavailable Chan Santana Admitting Unavailable Chan Santana Attending Unavailable Guillermo Oleary II Consulting Unavaila ble Rajan, Margarito Admitting Unavailable Rajan, Margarito Attending Unavailable Tyson, Peri A Primary Care Unavailable Louis Ellsworth Unavailable Tyson, Peri A Admitting Unavailable Tyson, Peri A Primary Care Unavailable Tyson, Peri A Attending Unavailable Sanju, Roxane Admitting Unavailable Sanju, Roxane Attending Unavailable Tyson, Peri A Primary Care Unavailable Tyson, Peri A Primary Care Unavailable Tyson, Peri A Attending Unavailable Tyson, Peri A Admitting Unavailable Truong Ward Admitting Unavailab le Truong Ward Attending Unavailab le Tyson, Peri A Primary Care Unavailable Allergies Allergy ClassificationReported Allergen(s)Allergy TypeDate of OnsetReaction(s) Facility (20 sources)CodeineDrug Dpxgnnc96-49-4368EuuijqsUniversity [facility]als [facility] ([facility] sources)HoneyPropensity to adverse wopmlpyfm90-37-3902tnqebjlqwlxSal[facility] (20 sources)MorphineDrug Qltzbee03-95-3429BmpbJmjomvqgqK[facility] (1 source)CodeineDrug Zfjdemx31-31-6245Sqh[facility] (1 source)HoneyDrug allergy (disorder)88-44-5989SjuEast [facility] (1 source)MorphineDrug Bovrffo21-61-7919FfeEast [facility]ository (20 sources)traMADolDrug Gjaqvrr23-51-8398SwylmcwikuacbxDmvlavzvuUniversity [facility]als [facility] (1 source)MorphineDrug AllergyUnknoCitizens Memorial Healthcare [facility] Other (1 source)CodeineDrug Uccyvnk96-91-6857JmnsecgtpKettering Health Rep[facility] (1 source)HoneyDrug allergy (disorder)21-16-1828JufacqxbiKettering Health Repository (1 source)MorphineDrug Yjkwrzw58-97-6865TiarxwoeyKettering Health Repository (1 source)traMADolDrug Jaiarwj86-28-5946VnpwfffdsKettering Health Repository Medications Current Medications MedicationDrug Class(es)DatesSig (Normalized)Sig (Original)acetaminophen 325 mg / HYDROcodone bitartrate 5 mg oral tablet (20 sources)Opioid AgonistStart: 60-99-6663esoi 0.5-1 tablets by mouth once daily as neededNorco 5-325 MG 1/2 to 1 tablet as needed Orally daily for 30 days Oct, ActiveStart: 60-95-2040isit 0.5-1 tablets by mouth once daily as neededNorco 5-325 MG 1/2 to 1 tablet as needed Orally daily for 30 days Oct, ActiveStart: 43-53-2450esbv 0.5-1 tablets by mouth once daily as needed [place] 5-325 MG 1/2 to 1 tablet as needed Orally daily for 30 days Sep, ActiveStart: 20-12-2909ljrl 0.5-1 tablets by mouth once daily as neededNorco 5- 325 MG 1/2 to 1 tablet as needed Orally daily for 30 days August, Active Start: 85-69-6645jisv 1 tablet by mouth twice daily as neededNorco 5-325 MG 1 tablet as needed Orally twice a day for 30 days Jun, ActiveStart: 17-76-8534jwmw 1 tablet by mouth twice daily as neededNorco 5-325 MG 1 tablet as needed Orally twice a day for 30 days May, ActiveStart: 48-14-7284sjdf 1 tablet by mouth twice daily as neededNorco 5-325 MG 1 tablet as needed Orally twice a day for 30 days Apr, ActiveStart: 94-78-5230xwlt 1 tablet by mouth twice daily as neededNorco 5-325 MG 1 tablet as needed Orally twice a day for 30 days Apr, ActiveStart: 09-55-6670ctov 1 tablet by mouth twice daily as neededNorco 5-325 MG 1 tablet as needed Orally twice a day for 30 days Mar, ActiveStart: 23-34-3112Osavz: 21-41-9152UFYHCvrwwzl-Acetaminophen 5-325 MG 1 tablet as needed severe pain scale 9-10 Orally BID for 9 days Fill on or after 02/22/2022 Oct, ActiveStart: 12-16-2016 End: 83-04-7282Qalqm: 12-16-2016 End: 52-11-1484hpyz 1 tablet by mouth every six hours as needed for pain Hydrocodone-Acetaminophen 5-325 mg tablet Discontinued 1 TAB PO Q6H as needed for Pain December 16, 2016 12:00am April 17, 2017 11:02amtake 1 tablet by mouth twice daily as neededNorco 5-325 MG 1 tablet as needed Orally twice a day Activeacyclovir 400 mg oral tablet (9 sources)Herpesvirus Nucleoside Analog DNA Polymerase Inhibitor, Herpes Simplex Virus Nucleoside Analog DNA Polymerase Inhibitor, Herpes Zoster Virus Nucleoside Analog DNA Polymerase InhibitorStart: 55-45-7057van620118 200 actuat albuterol 0.09 mg/actuat metered dose inhaler (20 sources)beta2-Adrenergic AgonistStart: 07-16-2023 End: 04-07-4054scqp 2 puff(s) by inhalation in the morning, then take 2 puff(s) by inhalation in the evening, thentake 2 puff(s) by inhalation at bedtime albuterol HFA 90 mcg/act inhaler Indications: Chronic obstructive pulmonary disease, unspecified COPD type (HCC) INHALE 2 PUFFS IN THE MORNING AND 2 PUFFS IN THE EVENING AND 2 PUFFS BEFORE BEDTIME. 18 g 5 08/03/2024 ActiveStart: 63-92-6815mjnr 2 puff(s) by inhalation in the morning, then take 2 puff(s) by inhalation in the evening, thentake 2 puff(s) by inhalation at bedtimealbuterol HFA (Ventolin HFA) 90 mcg/act inhaler Indications: Chronic obstructive pulmonary disease,unspecified COPD type (CMS/HCC) Inhale 2 puffs in the morning and 2 puffs in the evening and 2 puffs before bedtime. 18 g 5 09/23/2022 ActiveStart: 63-99-8060Njdkh: 01-35-8635acww 1 puff(s) by inhalation every four hours as needed for wheezingAlbuterol Sulfate (Proair Hfa) 90 mcg/actuation Hfa Aerosol Inhaler Active 1 PUFF INHALATION Q4H asneeded for Wheezing July 29, 2021 12:00am Complies with drug therapyStart: 12-26-2016 End: 61-14-8227Jelzh: 12-26-2016 End: 82-92-6661euki 2.5 mg by inhalation every three hours as neededAlbuterol Sulfate 2.5 mg /3 mL (0.083 %) Solution For Nebulization Discontinued 2.5 MG INHALATION Q3H as needed for Shortness Of Breath December 26, 2016 12:00am April 17, 2017 11:07amtake 1 puff(s) by inhalation every four hours as neededalbuterol 0.833 mg/ml / ipratropium bromide 0.167 mg/ml inhalation solution (20 sources)Anticholinergic, beta2-Adrenergic AgonistStart: 09-23-2022 End: 34-71-0922ibkotyjzhhe-albuterol (Duo-Neb) 0.5-2.5 mg/3 mL nebulizer solution Indications: Chronic obstructivepulmonary disease, unspecified COPD type (HCC) Take 3 mL by nebulization 4 (four) times a day as needed for wheezing or shortness of breath 360 mL 11 01/14/2024 ActiveStart: 08-16-2021 End: 48-97-3196zsbl 1 mL by inhalation four times dailyIpratropium-Albuterol 0.5 mg-3 mg(2.5 mg base)/3 mL Solution For Nebulization Discontinued 3 ML INHALATION Four times daily August 16, 2021 12:00am August 16, 2021 10:33amStart: 07-29-2021 End: 81-44-8672Ndxmg: 24-01-7611yyad 1 mL by inhalation every six hours as needed for wheezingIpratropium-Albuterol 0.5 mg-3 mg(2.5 mg base)/3 mL Solution For Nebulization Active 3 ML INHALATION Q6H as needed for Wheezing July 29, 2021 12:00am Complies with drug therapyStart: 01-70-7444xudy 3 mL by inhalation every six hoursStart: 09-21-4807Kgavu: 12-16-2016 End: 43-07-6577tgMADBDpwq 10 mg oral tablet (20 sources)Dihydropyridine Calcium Channel BlockerStart: 06-15-2023 End: 66-45-5764Pfpfe: 07-21-2022 End: 90-44-6108Awnvo: 01-24-2018 End: 61-66-9239Lxwck: 01-24-2018 End: 30-61-3433jezy 10 mg by mouth once daily in the morningAmlodipine Discontinued 10 MG PO Every morning January 24, 2018 12:00am June 15, 2023 9:10amStart: 12-16-2016 End: 39-01-9049Skhhu: 12-16-2016 End: 32-67-6773uoxe 1 tablet by mouth at bedtimeAmlodipine 5 mg tablet Discontinued 1 TAB PO Bedtime December 16, 2016 12:00am December 26, 2016 12:19pmamoxicillin 500 mg oral tablet (6 sources)Penicillin-class AntibacterialStart: 84-00-9816catk 1 tablet by mouth every eight hoursAsenapine Maleate 5 mg tablet, sublingual (5 sources)Start: 55-56-0311gqje 1 tablet under the tongue once daily at bedtime Asenapine Maleate 5 mg tablet, sublingual Active 5 MG SUBLINGUAL Daily at bedtime July 01, 2023 12:00amStart: 00-34-3225atna 1 tablet under the tongue once daily at bedtimeAsenapine Maleate 5 mg tablet, sublingual Active 5 MG SUBLINGUAL Daily at bedtime June 30, 2023 11:00pmazithromycin 250 mg oral tablet (13 sources)Macrolide AntimicrobialStart: 05-13-2024 End: 00-01-0842tflnwfobmnxw (Zithromax) 250 MG tablet Indications: Chronic obstructive pulmonary disease, unspecified COPD type (CMS/HCC) Take 2 by mouth today then 1 daily for 4 days 6 tablet 05/13/2024 08/25/2024Discontinued (Med list cleanup)BIPAP Machine (20 sources)BIPAP Machine [id number] actuat budesonide 0.16 mg/actuat / formoterol fumarate 0.0045 mg/actuat metered dose inhaler (20 sources)Corticosteroid, beta2-Adrenergic AgonistStart: 09-23-2022 End: 76-15-6182dfhf 2 puff(s) by inhalation in the morningbudesonide-formoterol (Symbicort) 160-4.5 MCG/ACT inhaler Indications: Chronic obstructive pulmonary disease, unspecified COPD type (HCC) Inhale 2 puffs in the morning and 2 puffs before bedtime. Rinse mouth with water after use to reduce aftertaste and incidence of candidiasis. Do not swallow.. 1 each 5 01/14/2024 ActiveStart: 29-09-7507Mbbqs: 64-70-9825mdrn 1 puff(s) by inhalation twice dailyStart: 86-40-9100mwtw 1 puff(s) by inhalation twice dailyBudesonide-Formoterol (Symbicort) 160-4.5 mcg/actuation Hfa Aerosol Inhaler Active 2 PUFF INHALATION Twice daily January 24, 2018 12:00am Complies with drug therapyStart: 80-07-7238iizb 1 puff(s) by inhalation twice dailyBudesonide-Formoterol (Symbicort) 160-4.5 mcg/actuation Hfa Aerosol Inhaler Active 2 PUFF INHALATION Twice daily January 23, 2018 11:00pmStart: 72-02-1101ibzh 1 puff(s) by inhalation twice dailyBudesonide-Formoterol (Symbicort) 160-4.5 mcg/actuation Hfa Aerosol Inhaler Active 2 PUFF INHALATION Twice daily January 24, 2018 12:00amStart: 12-16-2016 End: 58-02-4129Mgpds: 12-16-2016 End: 23-12-5294tzhs 1 puff(s) by inhalation twice dailyBudesonide-Formoterol 160-4.5 mcg/actuation HFA aerosol inhaler Discontinued 2 PUFF INHALATION Twice daily December 26, 2016 12:47pm April 17, 2017 11:06amtake 2 puff(s) by inhalation once dailySymbicort 160-4.5 MCG/ACT 2 puffs Inhalation Once a day for 30 days Activetake 2 puff(s) by inhalation once dailySymbicort 160-4.5 MCG/ACT 2 puffs Inhalation Once a day for 30 days ActivebusPIRone hydrochloride 5 mg oral tablet (20 sources)Start: 54-38-4625afbx 1 tablet by mouth once dailybusPIRone (Buspar) 5 MG tablet TAKE 1 TABLET BY ORAL ROUTE 1 TIMES PER DAY IN THE AFTERNOON 08/08/2024 Activecalcium carbonate 1500 mg oral tablet (9 sources)Start: 69-88-5763rlnlnkxbbrecifucrtzwsq sodium 5 mg/ml ophthalmic solution (20 sources)Start: 28-48-3410Jfvyp: 07-08-2023 End: 39-78-3926Cwuab: 07-01-2023 End: 84-49-9872ahdsofyuycyoaejxlwzzue sodium (Refresh Tears) Discontinued OPHTHALMIC July 01, 2023 12:00am 2024 10:00amStart: 07-01-2023 carboxymethylcellulose sodium (Refresh Tears) Active OPHTHALMIC June 30, 2023 11:00pmStart: 54-90-3376wpwxgwrjfombkzznwanfgc sodium (Refresh Tears) Active OPHTHALMIC July 01, 2023 12:00amStart: 70-88-6784Qwfrekk Tears 0.5 % ophthalmic solution 03/18/2023 ActiveStart: 70-65-0152aghp 1 drop(s) into the eye(s) three times daily as neededRefresh Tears 0.5 % ophthalmic solution INSTILL 1 DROP INTO EACH EYE 3 TIMES A DAY NEEDED 30 DAYS 03/18/2023 Active Refresh Tears 0.5 % INSTILL 1 DROP INTO EACH EYE 3 TIMES A DAY NEEDED 30 DAYS for 30 Activecholecalciferol 0.05 mg oral capsule (20 sources)Vitamin DStart: 04-34-2912Fnbqa: 12-24-2023 End: 17-21-4944Jprco: 11-92-3375oxyh 2 capsules by mouth once daily Cholecalciferol (Vitamin D3) Active 0 .ROUTE .COMPLEX 180 December 24, 2023 2:28pm TAKE 2 CAPSULES BY MOUTH EVERY DAYStart: 12-16-2016 End: 97-89-3393Baubn: 12-16-2016 End: 01-70-3206cnre 2 capsules by mouth once dailyCholecalciferol (Vitamin D3) 50 mcg (2,000 unit) capsule Discontinued 0 .ROUTE .COMPLEX 180 December 24, 2023 2:28pm December 07, 2024 9:53am TAKE 2 CAPSULES BY MOUTH EVERY DAYStart: 12-16-2016 End: 32-66-5246aqmv 1 capsule by mouth twice dailyCholecalciferol (Vitamin D3) 2,000 unit capsule Discontinued 1 CAP PO Twice daily December 16, 2016 12:00am December 24, 2023 2:28pmStart: 63-11-6128wugq 1 capsule by mouth once daily Cholecalciferol (Vitamin D3) Active 1 CAP PO Daily December 16, 2016 12:00am clobetasol propionate 0.5 mg/ml topical cream (20 sources)CorticosteroidStart: 35-49-0174flsvbcqcng (Temovate) 0.05 % cream 11/08/2023 ActiveStart: 07-29-2021 End: 86-48-5040rbxIXOsvs hydrochloride 0.1 mg oral tablet (20 sources)Central alpha-2 Adrenergic AgonistStart: 02-86-4205Cxfzg: 10-21-2021 take 1 tablet by mouth twice dailycloNIDine HCl 0.1 MG 1 tablet Orally twice daily for 90 day(s) Oct, ActiveComp.Stocking,Thigh,Long,Large (20 sources)Start: 57-59-1760Mhgp.Stocking,Thigh,Long,Large Active 0 .Route 2 May 27, 2023 5:01pm 20-30 COMPRESSION ,WEARDAILY, 30 DAYSStart: 49-91-4638Fqlu.Stocking,Thigh,Long,Large Active 0 .Route 2 May 27, 2023 1:00am As directedStart: 05-27-2023 End: 89-99-1147Tvjv.Stocking,Thigh,Long,Large Discontinued 0 .Route 2 May 27, 2023 1:00am May 27, 2023 5:01pm WEAR DAILY, 30 DAYSStart: 95-53-3354Jcjw.Stocking,Thigh,Long,Large Active 0 .Route 2 May 27, 2023 12:00am As directedComp.Stocking,Thigh,Long,Large misc (20 sources)Start: 55-09-5661Gayg.Stocking,Thigh,Long,Large misc Active 0 .Route 2 May 27, 2023 5:01pm 20-30 COMPRESSION ,WEAR DAILY, 30 DAYSStart: 47-29-6983Ixsv.Stocking,Thigh,Long,Large misc Active 0 .Route 2 May 27, 2023 4:01pm 20-30 COMPRESSION ,WEAR DAILY, 30 DAYSStart: 05-27-2023 Comp.Stocking,Thigh,Long,Large misc Active 0 .Route 2 May 27, 2023 1:00am As directedStart: 05-27-2023 End: 93-73-3671Qzpp.Stocking,Thigh,Long,Large misc Discontinued 0 .Route 2 May 27, 2023 1:00am May 27, 2023 5:01pm WEAR DAILY, 30 DAYSStart: 09-89-3366Dolj.Stocking,Thigh,Long,Large misc Active 0 .Route 2 May 27, 2023 12:00am As directedStart: 05-27-2023 End: 14-42-3740Uepi.Stocking,Thigh,Long,Large misc Discontinued 0 .Route 2 May 27, 2023 12:00am May 27, 2023 4:01pm WEAR DAILY, 30 DAYS Continuous Blood Gluc Sensor (FreeStyle Alfredo 2 Sensor) misc (20 sources)Start: 31-77-9483Flolkuwznq Blood Gluc Sensor (FreeStyle Alfredo 2 Sensor) misc 07/01/2023 ActiveStart: 58-04-9433Tctcyobaxd Blood Gluc Sensor (FreeStyle Alfredo 2 Sensor) misc USE DIRECTED EVERY 14 DAYS 07/01/2023 Active Continuous Glucose Supervisor Graphite (FreeStyle Alfredo 3 [place]) device (20 sources)Start: 75-50-2063Bozrqjbvbb Glucose Supervisor Graphite (FreeStyle Alfredo 3 [place]) device Indications: Type 2 diabetes mellituswith hyperglycemia, with long-term current use of insulin ([facility]) USE DIRECTED 1 each 09/12/2024 Active Start: 66-93-6504Cvrrwfgpod Glucose Supervisor Graphite (FreeStyle Alfredo 3 [place]) device Indications: Type 2 diabetes mellituswith hyperglycemia, with long-term current use of insulin ([facility]/HCC) USE DIRECTED 1 each 09/12/2024 ActiveStart: 08-22-2024 End: 01-29-1279Avbuzidxbn Glucose Supervisor Graphite (FreeStyle Alfredo 3 [place]) device Indications: Type 2 diabetes mellituswith hyperglycemia, with long-term current use of insulin (CMS/HCC) 1 Device Daily 1 each 08/22/2024 08/22/2025 Active Continuous Glucose Sensor (FreeStyle Alfredo 3 Plus Sensor) misc (20 sources)Start: 10-25-2024 End: 56-89-6803Sglvzyqgzo Glucose Sensor (FreeStyle Alfredo 3 Plus Sensor) [facility] [place]: Type 2 diabetes mellitus with hyperglycemia, with long-term current use of insulin ([facility]) 1 Bar Every 15 Days 6 each 1 10/25/2024 01/23/2025 Active Start: 08-22-2024 End: 93-40-4296Jtqtkhlyzs Glucose Sensor (FreeStyle Alfredo 3 Plus Sensor) [facility] [place] Indications: Type 2 diabetes mellitus with hyperglycemia, with long-term current use of insulin ([facility]) 1 Bar Every 15 Days 6 each 1 08/22/2024 11/20/2024 Active Start: 08-22-2024 End: 98-89-6190Tsjinjzixf Glucose Sensor (FreeStyle Alfredo 3 Plus Sensor) [facility] [place]ications: Type 2 diabetes mellitus with hyperglycemia, with long-term current use of insulin (CMS/[facility]) 1 Bar Every 15 Days 6 each 1 08/22/2024 11/20/2024 Activedapagliflozin 5 mg oral tablet (20 sources)Sodium-Glucose Cotransporter 2 InhibitorStart: 12-23-2023 End: 63-04-6117iakr 1 tablet by mouth once dailydapagliflozin (Farxiga) 10 MG Indications: Type 2 diabetes mellitus with hyperglycemia ([facility]) Take 1tablet (10 mg) by mouth Daily 90 tablet 1 08/22/2024 ActiveStart: 08-14-2022 End: 97-25-9158Inqpx: 07-29-2021 End: 27-43-8064ffaiunqkps sodium 0.01 mg/mg topical gel (20 sources)Nonsteroidal Anti-inflammatory DrugStart: 09-08-2023 End: 82-28-4202ewojeetxuv sodium 1 % gel Indications: Diabetes mellitus due to underlying condition with diabetic polyneuropathy, with long-term current use of insulin ([facility]) APPLY 4 GRAMS TO AFFECTED AREA 4 TIMES DAILY 100 g 3 01/12/2024 ActiveStart: 03-23-2023 End: 64-77-0853rzxhavomoz sodium 1 % gel Indications: Diabetes mellitus due to underlying condition with diabetic polyneuropathy, with long-term current use of insulin (CMS/HCC) APPLY 4 GRAMS TO AFFECTED AREA 4 TIMES DAILY 100 g 3 05/21/2023 Activedicyclomine hydrochloride 20 mg oral tablet (20 sources)AnticholinergicStart: 75-78-8362Auyqg: 11-03-2023 End: 92-77-3021Zgxwj: 07-29-2021 End: 50-47-8315Hvlrw: 07-29-2021 End: 32-64-2306ibfe 1 tablet by mouth four times dailyDicyclomine 20 mg Tablet Discontinued 20 MG PO Four times daily July 29, 2021 12:00am October 4:58pmDULoxetine 60 mg delayed release oral capsule (20 sources)Serotonin and Norepinephrine Reuptake InhibitorStart: 04-20-2024 End: 48-35-0162Avbcn: 06-24-2022 End: 70-17-8884Ughxu: 08-16-2021 End: 80-19-0609Sbrim: 01-24-2018 End: 23-37-4068Wpthe Glucose Sensor (Freestyle Alfredo 2 Sensor) kit (10 sources)Start: 31-59-4845Ordhg Glucose Sensor (Freestyle Alfredo 2 Sensor) kit Active 0 .Route 6 January 31, 2024 11:00pm AsdirectedStart: 06-10-3805Jrwrx Glucose Sensor (Freestyle Alfredo 2 Sensor) kit Active 0 .Route 6 February 01, 2024 12:00am Asdirectedfluticasone propionate 0.05 mg/actuat metered dose nasal spray (20 sources)CorticosteroidStart: 59-35-2444jxoq 1 spray(s) nasal route once dailyfluticasone (Flonase) 50 MCG/ACT nasal spray Indications: Chronic obstructive pulmonary disease, unspecified (HCC) USE 1 SPRAY INTO EACH NOSTRIL EVERY DAY FOR 30 DAYS 16 mL 12/05/2022 ActiveStart: 01-24-2018 End: 22-33-5125Wdghw: 01-24-2018 End: 12-01-2585Vkwtsqxtjdu Propionate (Flonase) 50 mcg/actuation [place],Suspension Discontinued 1 SPRAY INTRANASAL Daily July 29, 2021 12:00am September 19, 2024 10:01amStart: 12-16-2016 End: 68-59-0711Ltldy: 12-16-2016 End: 65-87-3676Cfngujykovm Propionate (Flonase Allergy Relief) 50 mcg/actuation [place],Suspension Discontinued 1 SPRAY INTRANASAL Daily 30 30 Sarahy 15th, 2017 12:47pm April 17, 2017 11:04amtake 1 spray(s) nasal route once daily as neededFreeStyle Alfredo 14 Day [place] - (20 sources)Start: 39-22-3459Lkkwa: 47-10-2969FfptIwlnc Alfredo 14 Day [place] - as directed every 14 days Feb, ActiveFreeStyle Alfredo 14 Day Sensor - (20 sources)Start: 39-70-9979Yryfz: 13-02-1788LzqhHolov Alfredo 14 Day Sensor - as directed every 14 days for 28 days Feb, ActiveFreeStyle Alfredo 2 [place] - (20 sources)Start: 95-03-1262TurqDptvy Alfredo 2 [place] - as directed Feb, ActiveFreeStyle Alfredo 2 [place] - as directed ActiveFreeStyle Alfredo 2 Sensor - (20 sources)Start: 76-88-0271Efpgg: 09-21-5790Ywjai: 13-44-4366VodrMfwtu Alfredo 2 Sensor - as directed SQ every 14 days for 90 days Jul, ActiveStart: 01-39-3928MhzzGqtad Alfredo 2 Sensor - as directed SQ every 2 weeks for 30 days Feb, Activefurosemide 40 mg oral tablet (20 sources)Loop DiureticStart: 78-92-3309Owzma: 10-28-2023 End: 11-56-2629Wcsvo: 04-28-2023 End: 35-06-5586Suiko: 12-16-2016 End: 69-70-7268Xorbj: 12-27-2013 End: 20-86-6679Xpixo: 95-06-7913yisn 1.5 tablets by mouth once dailyfurosemide (Lasix) 40 MG tablet TAKE 1.5 TABLETS BY MOUTH ONCE DAILY 05/17/2023 Active Start: 12-27-2013 End: 97-86-5650xenc 1 tablet by mouth once dailyFurosemide 20 mg tablet Discontinued 1 TAB PO Daily December 26, 2016 12:47pm July 29, 2021 11:13amgabapentin 600 mg oral tablet (20 sources)Anti-epileptic AgentStart: 21-39-1594vzqzhwuhkr (Neurontin) 600 MG tablet 01/05/2024 ActiveStart: 06-49-8396nsiyxlzebj (Neurontin) 600 MG tablet TAKE 1.5 TABS IN AM, 1 TAB AT NOON, AND 1.5 TABS AT BEDTIME 01/05/2024 Active Start: 10-69-4813Asbgn: 09-16-2022 End: 55-17-4911wjlb 1 capsule by mouth once dailyGabapentin 300 mg capsule Active 300 MG PO Daily July 01, 2023 12:00amStart: 08-16-2021 End: 78-67-7069Dbmek: 08-16-2021 End: 64-16-8917rbhu 600 mg by mouth twice dailyGabapentin Discontinued 600 MG PO Twice daily August 16, 2021 12:00am July 01, 2023 4:02pmStart: 32-38-1042xbev 300 mg by mouth three times dailyGabapentin Active 300 MG PO Three times daily August 16, 2021 12:00amStart: 76-31-9201vhpi 100 mg by mouth three times daily Gabapentin Active 100 MG PO Three times daily August 16, 2021 12:00amStart: 12-16-2016 End: hr guaiFENesin 600 mg extended release oral tablet (20 sources)Start: 01-14-2024 End: 30-97-1580ojwu 1 tablet by mouth in the morning, [...] 01/14/2024 08/25/2024 Discontinued (Med listcleanup)Start: 11-30-2023 End: 53-70-4097nfmp 1 tablet by mouth twice daily at bedtimeguaiFENesin (Mucinex) 600 MG 12 hr tablet Indications: Chronic obstructive pulmonary disease, unspecified COPD type (CMS/HCC) TAKE 1 TABLET BY MOUTH TWICE DAILY IN THE MORNING AND BEFORE BEDTIME. 60 tablet 11 11/30/2023 01/14/2024 Discontinued (Reorder)Start: 31-80-5365gjzm 1 tablet by mouth in the morning, then take 1 tablet by mouth every twelve hours at bedtimeguaiFENesin (Mucus Relief) 600 MG 12 hr tablet Indications: Chronic obstructive pulmonary disease, unspecified COPD type (CMS/HCC) Take 1 tablet (600 mg) by mouth in the morning and 1 tablet (600 mg)before bedtime. 60 tablet 5 01/26/2023 ActivehydrOXYzine hydrochloride 25 mg oral tablet (20 sources)AntihistamineStart: 46-77-9999ssfi 1 tablet by mouth three times daily as needed for anxietyhydrOXYzine HCl (Atarax) 25 MG tablet Take 25 mg by mouth 3 (three) times a day as needed for anxiety 08/12/2024 ActiveStart: ml insulin aspart, human 100 unt/ml pen injector (20 sources)Insulin AnalogStart: 01-15-7874Dtodw: 10-20-7552Oxagi: 08-17-2024 insulin aspart (NovoLOG FLEXPEN) 100 UNIT/ML pen Indications: Type 2 diabetes mellitus with hyperglycemia, with long-term current use of insulin (HCC) Inject 40 Units under the skin in the morning and 40 Units at noon and 40 Units in the evening. Inject before meals. 120 mL 1 08/17/2024 ActiveStart: 58-76-4157florsbv aspart (NovoLOG FLEXPEN) 100 UNIT/ML pen Indications: Type 2 diabetes mellitus with hyperglycemia, with long-term current use of insulin (CMS/HCC) Inject 40 Units under the skin in the morning and 40 Units at noon and 40 Units in the evening. Inject before meals. 120 mL 1 06/01/2024 ActiveStart: 71-21-9912TbikWNA FLEXPEN 100 UNIT/ML pen PLEASE SEE ATTACHED FOR DETAILED DIRECTIONS 10/22/2023 ActiveStart: 12-19-2016 End: 06-31-1064Dujek: 12-19-2016 End: 27-58-0359Rtcnyei Aspart U-100 (Novolog Flexpen U-100 Insulin) 100 [...] information source for Protocol details.Start: 12-19-2016 End: 08-52-2456Kavcawg Aspart U-100 (Novolog Flexpen U-100 Insulin) 100 unit/mL Insulin Pen Discontinued 0 UNITS SUBCUT 3X/Day with meals and bedtime December 19, 2016 12:00am April 17, 2017 11:02am Please contact the information source for Protocol details.3 ml insulin glargine 100 unt/ml pen injector (20 sources)Insulin AnalogStart: 11-14-2024 End: 95-96-2573lxljqo 40 [IU] by subcutaneous injection in the morninginsulin glargine (Lantus SoloStar) 100 UNIT/ML pen Indications: Type 2 diabetes mellitus with hyperglycemia, with long-term current use of insulin (HCC) Inject 40 Units under the skin in the morning and 40 Units before bedtime. 72 mL 1 11/14/2024 ActiveStart: 05-25-2024 End: 97-16-5383sdvpsml glargine (Lantus SoloStar) 100 UNIT/ML pen Indications: Type 2 diabetes mellitus with hyperglycemia, with long-term current use of insulin (HCC) Inject 50 Units under the skin in the morning.45 mL 1 08/17/2024 11/14/2024 Discontinued (Reorder)Start: 12-05-2022 End: 73-70-7909Yvgwiat Glargine (Lantus Solostar U-100 Insulin) 100 unit/mL (3 mL) insulin pen Discontinued 30 UNIT SUBCUT 3x/Day before meals December 05, 2022 12:00am December 05, 2022 1:39pm If Blood sugar is greater than 140 takes 2 more units-per patientStart: 08-16-2021 End: 57-85-3212Sliuk: 08-16-2021 End: 18-03-6112Tpprr: 39-95-6361Dpwgsje Glargine (Basaglar Kwikpen U-100 Insulin) 100 unit/mL (3 mL) Insulin Pen Active 15 UNIT SUBCUT Every morning August 16, 2021 12:00am If BGL greater than 140Basaglar KwikPen 100 UNIT/ML 22 units Subcutaneous once a day ActiveBasaglar KwikPen 100 UNIT/ML 17 units Subcutaneous once a day ActiveLantus Active3 ml insulin lispro-aabc 100 unt/ml pen injector (20 sources)Insulin AnalogStart: 05-25-2024 End: 81-39-8269scazvlo lispro-aabc (Lyumjev KwikPen) 100 UNIT/ML pen Indications: Type 2 diabetes mellitus with hyperglycemia, with long-term current use of insulin (HCC) Inject 40 Units under the skin in the morning and 40 Units at noon and 40 Units in the evening. Inject with meals. 36 pen 1 05/25/2024 11/21/2024 ActiveStart: 03-20-2023 End: 18-06-3474Jbfjgod KwikPen 100 UNIT/ML pen PLEASE SEE ATTACHED FOR DETAILED DIRECTIONS 03/20/2023 05/25/2024 Discontinued (Reorder)Start: 02-70-8206Ceorj: 83-53-1139Edniqbo Lispro-Aabc (Lyumjev Kwikpen U-100 Insulin) 100 unit/mL insulin pen Active 40 UNIT SUBCUT 3x/Day before meals December 05, 2022 12:00am FSBS 151-200 2 u 200-250 3 units 250-300 5 units 300-350 6 units 351-400 7 units per patient Complies with drug therapyInsulin Lispro-Aabc (Lyumjev Kwikpen U- 100 Insulin) 100 unit/mL insulin pen (20 sources)Start: 86-42-9761Qgiuwpc Lispro-Aabc (Lyumjev Kwikpen U-100 Insulin) 100 unit/mL insulin pen Active 30 UNIT SUBCUT 3x/Day before meals December 04, 2022 11:00pm FSBS 151-200 2 u 200-250 3 units 250-300 5 units 300-350 6 units 351-400 7 units per patientStart: 39-28-9486Emgeymw Lispro-Aabc (Lyumjev Kwikpen U-100 Insulin) 100 unit/mL insulin pen Active 30 UNIT SUBCUT 3x/Day before meals December 05, 2022 12:00am FSBS 151-200 2 u 200-250 3 units 250-300 5 units 300-350 6 units 351-400 7 units per patientIron (17 sources)take 1 tablet by mouth once dailyIron 325 (65 Fe) MG 1 tablet Orally Once a day for 30 day(s) Xlmtnz86 hr levomilnacipran 120 mg extended release oral capsule (20 sources)Serotonin and Norepinephrine Reuptake InhibitorStart: 07-29-2021 Start: 01-24-2018 End: 69-76-3055iafmnfulxkkiu sodium 0.075 mg oral tablet (20 sources)l-ThyroxineStart: 06-74-2746Fbfdf: 23-98-5903Xlnuvcsfidwzu 75 mcg Tablet Active 50 MCG PO Every morning July 29, 2021 12:00am Complies with dr collins therapyStart: 31-03-6899rujg 50 ug by mouth once daily in the morning Levothyroxine Active 50 MCG PO Every morning July 29, 2021 12:00amtake 1 tablet by mouth once daily in the morningloperamide hydrochloride 2 mg oral tablet (20 sources)Opioid AgonistStart: 58-25-5519mzrrsoolvg (Imodium A-D) 2 MG tablet 1 tablet 07/01/2023 ActiveStart: 07-01-2023 End: 91-18-4481Hacue: 01-70-1636klve 1 tablet by mouth every six hoursImodium A- D 2 MG 1 tablet as needed Orally Four times a day for 10 days Mar, ActiveLubricant Eye Drops 0.5 % (20 sources)Start: 78-90-1733xktr 1 drop(s) into the eye(s) three times daily as neededStart: 88-41-5583Znfys: 66-93-0325sbtd 1 drop(s) into the eye(s) three times daily as neededLubricant Eye Drops 0.5 % 1 drop each eye Ophthalmic TID PRN for 30 days Jul, Activemagnesium oxide 400 mg oral tablet (20 sources)Start: 44-79-3530Gmgol: 01-24-2018 End: 93-71-1756Rbbny: 12-16-2016 End: 46-18-4610yrnwmfmaleu 45 mg oral tablet (20 sources)Start: 62-94-9304fdhvhcefeee (Remeron) 45 MG tablet 07/06/2023 ActiveStart: 07-29-2021 End: 22-94-6000Gxbqz: 07-29-2021 End: 92-35-2365Qycfa: 12-16-2016 End: 30-07-4798Kotos: 12-16-2016 End: 14-53-6280rwcj 1 tablet by mouth at bedtimeMirtazapine 15 mg tablet Discontinued 1 TAB PO Bedtime December 26, 2016 12:47pm April 17, 2017 11:02amOlopatadine 0.1 % drops (5 sources)Start: 04-42-5049iffx 1 drop(s) into the eye(s) twice daily Olopatadine 0.1 % drops Active DROPS OPHTHALMIC July 01, 2023 12:00am FreeTextSig: INSTILL 1 DROP INTO AFFECTED EYE TWICE A DAY FOR 30 DAYS; Note: Source Status: Start; Refills: 5; Qty: 15 Milliliter; Provider: Marbella Whitt ( )Start: 94-59-4612away 1 drop(s) into the eye(s) twice daily Olopatadine 0.1 % drops Active DROPS OPHTHALMIC June 30, 2023 11:00pm FreeTextSig: INSTILL 1 DROP INTO AFFECTED EYE TWICE A DAY FOR 30 DAYS; Note: Source Status: Start; Refills: 5; Qty: 15 Milliliter; Provider: Marbella Whitt ( )ondansetron 8 mg disintegrating oral tablet (13 sources)Serotonin-3 Receptor AntagonistStart: hr oxybutynin chloride 10 mg extended release oral tablet (20 sources)Cholinergic Muscarinic AntagonistStart: 77-25-4973Vopsf: 12-16-2016 End: 25-55-9228Diotim 4-6 liters (20 sources)Oxygen 4-6 liters continuous 5 liters ActiveOxygen 4-6 liters continuous ActiveOzempic, 0.25 or 0.5 MG/DOSE, 2 MG/3ML solution pen-injector (16 sources)Start: 08-22-2024 End: 11-03-3703Jozzfef, 0.25 or 0.5 MG/DOSE, 2 MG/3ML solution pen-injector 08/22/2024 11/14/2024 Discontinued (Dose adjustment)Start: 88-26-1101Orycato, 0.25 or 0.5 MG/DOSE, 2 MG/3ML solution pen-injector 08/22/2024 Activepotassium chloride 10 meq extended release oral tablet (1 source)Start: 93-89-2889cwucschaEXAC acetate 10 mg/ml ophthalmic suspension (20 sources)CorticosteroidStart: 32-01-8742fnvvpalfBJNC acetate (Pred-Forte) 1 % ophthalmic suspension 01/26/2023 ActivePrenatal (20 sources) ActiveProAir HFA 108 (90 Base) MCG/ACT (20 sources)take 1 puff(s) by inhalation every four hours as neededProAir HFA 108 (90 Base) MCG/ACT 1 puff as needed Inhalation every 4 hrs for 30 days Active take 1 puff(s) by inhalation every four hours as neededRollator Ultra-Light - (20 sources)Start: 18-35-1894Mwnnq: 99-98-8670Leozttcw Ultra-Light - as directed August, ActiveStart: 97-19-3104Xgmvr: 52-19-0452Xaeupqil Ultra-Light - as directed ROLLATOR WITH OXYGEN TANK SINGH August, Active1 mg dose 1.5 ml semaglutide 1.34 mg/ml pen injector (20 sources)Start: 11-14-2024 End: 64-41-9215hgqmuf 1 mg by subcutaneous injection every weeksemaglutide (Ozempic, 1 MG/DOSE,) 2 MG/1.5ML solution pen-injector Indications: Type 2 diabetes mellitus with hyperglycemia, with long-term current use of insulin (HCC) Inject 1 mg under the skin 1 (one) time per week 9 mL 1 11/14/2024 05/01/2025 ActiveStart: 08-22-2024 End: 45-54-4628ebwnfw 0.5 mg by subcutaneous injection every weeksemaglutide (Ozempic, 0.25 or 0.5 MG/DOSE,) 2 MG/1.5ML solution pen-injector Indications: Type 2 diabetes mellitus with hyperglycemia, with long-term current use of insulin (HCC) Inject 0.5 mg under the skin 1 (one) time per week 4.5 mL 1 08/22/2024 02/06/2025 ActiveStart: 07-29-2021 End: 54-03-2606Bbyqc: 07-29-2021 End: 85-22-2479Xqznwtmkllz (Ozempic) 0.25 mg or 0.5 mg(2 mg/1.5 mL) Pen Injector Discontinued 0.5 MG SUBCUT every week July 29, 2021 12:00am August 16, 2021 10:25amStart: 55-85-6709Uuphhwz (0.25 or 0.5 MG/DOSE) 2 MG/1.5ML 0.25 mg weekly for 4 weeks then increase to 0.5 mg weekly Subcutaneous weekly for 30 days May, ActiveSemaglutide (14 sources)Start: 45-91-1383Yjmtn: 35-17-0079Sggfppuuwtj,0.25 or 0.5MG/DOS, (Ozempic, 0.25 or 0.5 MG/DOSE,) 2 MG/3ML solution pen-injector (20 sources)Start: 63-70-1261Rcybbqadysx,0.25 or 0.5MG/DOS, (Ozempic, 0.25 or 0.5 MG/DOSE,) 2 MG/3ML solution pen-injector Indications: Type 2 diabetes mellitus with hyperglycemia, with long-term current use of insulin (HCC) INJECT 0.5 MG UNDER THE SKIN 1 (ONE) TIME PER WEEK 6 mL 1 10/19/2024 ActivetiZANidine 4 mg oral tablet (20 sources)Central alpha-2 Adrenergic AgonistStart: 64-65-9936Ralts: 07-01-2023 Start: 07-29-2021 End: 03-90-9024Mztgt: 01-24-2018 End: 66-19-3703Cpnza: 12-16-2016 End: 87-35-3556Pgxwm: 12-16-2016 End: 11-94-6516ezcd 1 tablet by mouth twice daily as needed for anxiety Tizanidine 4 mg tablet Discontinued 1 TAB PO Twice daily as needed for Anxiety 60 30 December 26, 2016 12:47pm April 17, 2017 10:58amtobramycin 3 mg/ml ophthalmic solution (15 sources)Aminoglycoside AntibacterialStart: 72-95-8258alsw 1 drop(s) into the eye(s) every four hoursTobramycin 0.3 % 1 drop into affected eye Ophthalmic every 4 hrs for 7 days May, ActivetraMADol hydrochloride 50 mg oral tablet (20 sources)Opioid Agonisttake 1 tablet by mouth every eight hourstraMADol HCl 50 MG 1 tablet as needed Orally three times a day Activetriamcinolone acetonide 0.001 mg/mg topical ointment (20 sources)CorticosteroidStart: 05-15-2023 End: 13-59-2907lxzocfygfqhkz (Kenalog) 0.1 % ointment 05/15/2023 08/25/2024 Discontinued (Med list cleanup)Start: 71-99-5050qdsnufdjwppgz (Kenalog) 0.1 % ointment APPLY TWICE DAILY FOR 2 WEEKS APPLY TO LOWER LEGS DISCUSSED 05/15/2023 ActiveStart: 72-29-8307Gigcpsy D-3 1999 (20 sources)take 2 capsules by mouth once dailytake 2 capsules by mouth once dailyVitamin D-3 2000 2 CAP Orally Once a day for 90 days Activetake 2 capsules by mouth once dailyVitamin D-3 1999 2 CAP Orally Once a day for 30 day(s) Active Wheelchair - (20 sources)Start: 39-13-2789Cdtsm: 48-18-4669Fjogk: 51-41-1660Jslursmfbf - as directed WITH OXYGEN TANK SINGH August, Activezonisamide 25 mg oral capsule (20 sources)Anti-epileptic AgentStart: 77-52-5342Zkaoy: 83-90-5485grdhnywgwp (Zonegran) 25 MG capsule 07/01/2023 ActiveStart: 88-11-8958lmfq 50 mg by mouth twice dailyZonisamide Active 50 MG PO Twice daily July 01, 2023 12:00amStart: 07-29-2021 End: 12-82-8413Ulufp: 07-29-2021 End: 15-48-0630ssbs 25 mg by mouth twice dailyZonisamide Discontinued 25 MG PO Twice daily July 29, 2021 12:00am July 01, 2023 4:00pmtake 2 capsules by mouth every twelve hourstake 2 capsules by mouth every twelve hours (20 sources)Start: 46-59-0129Unmzf: 07-01-2023 End: 59-64-3527Xredr: 07-01-2023 End: 77-92-4030Xgyvb: 73-54-8664Jdptn: 58-29-5250Vrpjj: 05-27-2023 End: 05-27-2023 Completed/Discontinued Medications MedicationDrug Class(es)DatesSig (Normalized)Sig (Original)allopurinol 300 mg oral tablet (20 sources)Xanthine Oxidase InhibitorStart: 01-24-2018 End: 55-00-5872wleiztsodipmz hydrochloride 10 mg oral tablet (20 sources)Tricyclic AntidepressantStart: 07-29-2021 End: 04-48-5406hpmzukvxy 5 mg sublingual tablet (20 sources)Atypical AntipsychoticStart: 35-69-1085rglf 5 mg under the tongue once daily at bedtimeAsenapine Maleate Active 5 MG SUBLINGUAL Daily at bedtime July 01, 2023 12:00amStart: 01-24-2018 End: 11-15-8056Yncjbthwc Maleate (Saphris ([place])) 5 mg Tablet, Sublingual (20 sources)Start: 01-24-2018 End: 82-72-0365zdwx 1 tablet under the tongue once dailyAsenapine Maleate (Saphris ([place])) 5 mg Tablet, Sublingual Discontinued 5 MG SUBLINGUAL Daily January 23, 2018 11:00pm August 16, 2021 9:19amStart: 01-24-2018 End: 78-91-1264ffra 1 tablet under the tongue once dailyAsenapine Maleate (Saphris ([place])) 5 mg Tablet, Sublingual Discontinued 5 MG SUBLINGUAL Daily January 24, 2018 12:00am August 16, 2021 10:19amAsenapine Maleate (Saphris) 5 mg Tablet, Sublingual (20 sources)Start: 08-16-2021 End: 13-44-2655yyof 1 tablet under the tongue once daily at bedtimeAsenapine Maleate (Saphris) 5 mg Tablet, Sublingual Discontinued 5 MG SUBLINGUAL Daily at bedtime August 15, 2021 11:00pm September 26, 2021 8:13amStart: 08-16-2021 End: 90-40-8713dxdz 1 tablet under the tongue once daily at bedtimeAsenapine Maleate (Saphris) 5 mg Tablet, Sublingual Discontinued 5 MG SUBLINGUAL Daily at bedtime August 16, 2021 12:00am September 26, 2021 9:13amaspirin 81 mg delayed release oral tablet (20 sources)Platelet Aggregation Inhibitor, Nonsteroidal Anti-inflammatory Drug Start: 07-01-2023 End: 65-27-6835Hexpu: 12-19-2016 End: 60-93-5197xdxykjgeuhat 40 mg oral tablet (20 sources)HMG-CoA Reductase InhibitorStart: 12-19-2016 End: 13-53-8773rfozxifzrgm 100 mg oral capsule (20 sources)Non-narcotic AntitussiveStart: 06-15-2023 End: 39-22-6529Fqsfv: 06-30-2022 End: 71-30-1077djnkjmlkqegsw 3 mg oral tablet (20 sources)Atypical AntipsychoticStart: 07-01-2023 End: 24-78-9638Viiiz: 57-65-3656Ljdem: 01-24-2018 End: 75-21-2687Brbsi: 12-16-2016 End: 43-69-1291fvet 1 tablet by mouth once dailyBrexpiprazole 3 MG 1 tablet Orally Once a day ActiveCarboxymethylcellulose Sodium (Refresh Tears) 0.5 % drops (12 sources)Start: 07-08-2023 End: 80-69-5347ffvd 1 drop(s) into the eye(s) twice daily as needed Carboxymethylcellulose Sodium (Refresh Tears) 0.5 % drops Discontinued 2 DROPS EYE-BOTH Twice dailyas needed for dry eye(s) July 08, 2023 12:00am October 09, 2023 12:17pmStart: 07-08-2023 End: 88-82-3775ixpj 1 drop(s) into the eye(s) twice daily as needed Carboxymethylcellulose Sodium (Refresh Tears) 0.5 % drops Discontinued 2 DROPS EYE-BOTH Twice dailyas needed for dry eye(s) July 07, 2023 11:00pm October 09, 2023 11:17amStart: 07-08-2023 End: 85-74-6566rubt 1 drop(s) into the eye(s) twice dailyCarboxymethylcellulose Sodium (Refresh Tears) 0.5 % drops Discontinued 2 DROPS EYE-BOTH Twice dailyJuly 08, 2023 12:00am October 09, 2023 12:17pmStart: 75-71-5716hlvd 1 drop(s) into the eye(s) twice dailyCarboxymethylcellulose Sodium (Refresh Tears) 0.5 % drops Active 2 DROPS EYE-BOTH Twice daily July 08, 2023 12:00amcarvedilol 25 mg oral tablet (20 sources)alpha-Adrenergic Apple, beta-Adrenergic BlockerStart: 11-11-2023 End: 38-25-4270Wqwlu: 07-01-2023 End: 26-91-4568Ilqdm: 12-19-2016 End: 25-70-6654Kdwzz: 12-19-2016 End: 22-40-0555twta 1 tablet by mouth twice dailyCarvedilol 6.25 mg Tablet Discontinued 6.25 MG PO Twice daily 60 30 December 26, 2016 12:47pm January 24, 2018 6:41pmStart: 12-19-2016 End: 58-93-0292Aodap: 12-16-2016 End: 61-22-0959fnjq 1 tablet by mouth every twelve hoursCoreg 25 MG tablet Take 25 mg by mouth every 12 (twelve) hours Activecelecoxib 200 mg oral capsule (20 sources)Nonsteroidal Anti-inflammatory DrugStart: 08-16-2021 End: 83-15-8044objz 1 capsule by mouth every twelve hoursCelecoxib 200 MG 1 capsule with food Orally Twice a day Activecolestipol hydrochloride 1000 mg oral tablet (20 sources)Bile Acid SequestrantStart: 07-01-2023 End: 89-01-3431Ahcpv: 18-94-4557zecz 2 g by mouth once dailyColestipol Active 2 GM PO Daily July 01, 2023 12:00amStart: 07-29-2021 End: 07-00-6220Itjgo: 07-29-2021 End: 09-00-3693dnkp 2 g by mouth once dailyColestipol Discontinued 2 GM PO Daily July 29, 2021 12:00am July 30, 2022 3:01pmStart: 89-36-1140zain 2 tablets by mouth every twenty-four hoursStart: 67-10-7985sygk 2 tablets by mouth every twenty-four hoursStart: 95-48-0954ydzy 2 tablets by mouth every twenty-four hourscyclobenzaprine hydrochloride 10 mg oral tablet (20 sources)Muscle RelaxantStart: 07-29-2021 End: 01-03-3942eodgpZVE 10 mg oral tablet (20 sources)BenzodiazepineStart: 12-16-2016 End: 39-39-0413qbgrchbcdko 100 mg oral tablet (20 sources)mu-Opioid Receptor AgonistStart: 12-16-2016 End: .3 ml enoxaparin sodium 100 mg/ml prefilled syringe (20 sources)Low Molecular Weight HeparinStart: 12-19-2016 End: 23-22-7727egyylatat, conjugated ([facility]) 0.3 mg oral tablet (20 sources)EstrogenStart: 01-24-2018 End: 25-17-7205pxyfchd sulfate 325 mg oral tablet (20 sources)Start: 07-01-2023 End: 61-05-1473Fodjf: 46-35-9093fjbk 1 tablet by mouth every twenty-four hours Start: 50-00-8655qtys 1 tablet by mouth once dailyFerrous Sulfate 325 (65 Fe) MG 1 tablet Orally daily for 90 days Oct, ActiveStart: 07-29-2021 End: 73-17-4400Klbmg: 12-16-2016 End: 19-42-5196Zkico: 12-16-2016 End: 77-75-4883bcfb 1 tablet by mouth once dailyFerrous Sulfate 325 mg (65 mg iron) tablet Discontinued 1 TAB PO Daily December 26, 2016 12:47pm January 24, 2018 6:40pmFluticasone Propion-Salmeterol (20 sources)Corticosteroid, beta2-Adrenergic AgonistStart: 12-26-2016 End: 98-70-6746Wuqst: 12-26-2016 End: 30-66-6167wjqp 1 puff(s) by inhalation twice dailyFluticasone Propion- Salmeterol (Advair Hfa) 115-21 mcg/actuation Hfa Aerosol Inhaler Discontinued 2 PUFF INHALATION Twice daily December 26, 2016 11:47am April 17, 2017 10:04amStart: 12-26-2016 End: 98-46-5077psdd 1 puff(s) by inhalation twice dailyFluticasone Propion- Salmeterol (Advair Hfa) 115-21 mcg/actuation Hfa Aerosol Inhaler Discontinued 2 PUFF INHALATION Twice daily December 26, 2016 12:47pm April 17, 2017 11:04amStart: 12-19-2016 End: 84-67-4170Hpdil: 12-19-2016 End: 67-89-6744bgxj 1 puff(s) by inhalation twice dailyFluticasone Propion- Salmeterol (Advair Hfa) 115-21 mcg/actuation Hfa Aerosol Inhaler Discontinued 2 PUFF INHALATION Twice daily December 18, 2016 11:00pm December 26, 2016 11:47amStart: 12-19-2016 End: 76-60-5274fjfp 1 puff(s) by inhalation twice dailyFluticasone Propion- Salmeterol (Advair Hfa) 115-21 mcg/actuation Hfa Aerosol Inhaler Discontinued 2 PUFF INHALATION Twice daily December 19, 2016 12:00am December 26, 2016 12:47pmipratropium bromide 0.021 mg/actuat metered dose nasal spray (20 sources)AnticholinergicStart: 12-16-2016 End: 65-78-5520Hchov: 12-16-2016 End: 83-53-1392Neusvnmkzdx Fleming Discontinued 2 SPRAY INTRANASAL Twice daily December 26, 2016 12:47pm April 17, 2017 11:02amketoconazole 20 mg/ml topical cream (20 sources)Azole AntifungalStart: 09-06-2024 End: 07-34-8129Zwbgk: 02-09-2024 End: 25-59-8532vcirmsbgrgyc 10 mg oral capsule (20 sources)Thalidomide AnalogStart: 02-08-2025 End: 26-05-6391Oczch: 11-08-2024 End: 23-98-0366nrhFVMTZU hydrochloride 850 mg oral tablet (20 sources)BiguanideStart: 07-29-2021 End: 86-08-5558Dlizv: 04-17-2017 End: 28-68-4881fdnJYPSPC hydrochloride 850 mg / pioglitazone 15 mg oral tablet (20 sources)Biguanide, Peroxisome Proliferator Receptor alpha Agonist, Peroxisome Proliferator Receptor gamma Agonist, ThiazolidinedioneStart: 07-01-2023 End: 02-00-9584Xshkp: 07-01-2023 End: 50-94-3046pcwi 1 tablet by mouth twice dailyPioglitazone-Metformin 15-850 mg tablet Discontinued 1 TAB PO Twice daily July 01, 2023 12:00am September 19, 2024 10:02amStart: 12-16-2016 End: 68-92-0391Iorkf: 12-16-2016 End: 06-67-9987jrdc 1 tablet by mouth once daily at breakfastPioglitazone- Metformin 15-850 mg tablet Discontinued 1 TAB PO Daily with breakfast December 16, 2016 12:00am December 26, 2016 12:42pmtake 1 tablet by mouth every twelve hoursMethylprednisolone (17 sources)CorticosteroidStart: 08-08-2024 End: 99-81-6445Poheatyeycgngrjlzs 4 mg tablets,dose pack Discontinued 0 PO per package directions August 08, 2024 12:00am September 19, 2024 10:01am PO PER PKG DIR for 6 daysStart: 08-08-2024 End: 61-38-5209Pztvv: 34-78-4279losgdgGFWYPUVbqapc 4 MG as directed Orally as directed for 6 days Jul, Activemontelukast 10 mg oral tablet (20 sources)Leukotriene Receptor AntagonistStart: 12-16-2016 End: 04-56-6811zyonfjozgs 750 mg oral tablet (20 sources)Nonsteroidal Anti-inflammatory DrugStart: 01-24-2018 End: 42-51-2652Pprjv: 12-16-2016 End: 38-86-9929rofqiymejeexu 10 mg oral capsule (20 sources)Tricyclic AntidepressantStart: 01-24-2018 End: 99-87-4392Yeawt: 12-16-2016 End: 82-15-6872sdvjttieajp 1 mg/ml ophthalmic solution (20 sources)Histamine-1 Receptor InhibitorStart: 09-06-2024 End: 60-11-5296Vrmml: 07-01-2023 End: 59-69-2137Qvatd: 51-51-8083uznq 1 drop(s) into the eye(s) twice daily Olopatadine Active DROPS OPHTHALMIC July 01, 2023 12:00am FreeTextSig: INSTILL 1 DROP INTO AFFECTED EYE TWICE A DAY FOR 30 DAYS; Note: Source Status: Start; Refills: 5; Qty: 15 Milliliter; Provider: Marbella Whitt ( ) Start: 04-18-3075vhojitvfjbn (Patanol) 0.1 % ophthalmic solution 06/26/2023 ActiveStart: 55-71-6220utix 1 drop(s) into the eye(s) twice dailyolopatadine (Patanol) 0.1 % ophthalmic solution INSTILL 1 DROP INTO AFFECTED EYE TWICE A DAY 06/26/2023 ActiveStart: 16-91-8398tmqd 1 drop(s) into the eye(s) twice daily Olopatadine HCl 0.1 % 1 drop into affected eye Ophthalmic Twice a day for 30 days Sep, ActiveStart: 33-79-8876Xxsjjotugfu HCl 0.1 % INSTILL 1 DROP INTO AFFECTED EYE TWICE A DAY FOR 30 DAYS for 30 days Activeomeprazole 40 mg delayed release oral capsule (20 sources)Proton Pump InhibitorStart: 07-30-2023 End: 59-02-7456Wnbfz: 01-24-2018 End: 03-27-8839Aqnpa: 12-16-2016 End: 29-22-7463wyizjrgqfjab 15 mg oral tablet (20 sources)Peroxisome Proliferator Receptor alpha Agonist, Peroxisome Proliferator Receptor gamma Agonist, ThiazolidinedioneStart: 12-26-2016 End: 62-92-8055Dzuex: 12-26-2016 End: 85-42-1367zaek 1 tablet by mouth once daily at breakfastPioglitazone 15 mg Tablet Discontinued 15 MG PO Daily with breakfast December 26, 2016 12:00am January 24, 2018 6:45pmprenatal vit-iron fum-folic ac ( Vitamin) (16 sources)Start: 07-01-2023 End: 70-68-2903xeeqovbs vit-iron fum-folic ac ( Vitamin) Discontinued PO July 01, 2023 12:00am September 19, 2024 10:02amStart: 36-23-2251uwyxsmpp vit- iron fum-folic ac ( Vitamin) Active PO June 30, 2023 11:00pmStart: 01-00-6279gwghehot vit-iron fum-folic ac ( Vitamin) Active PO July 01, 2023 12:00am24 hr QUEtiapine 300 mg extended release oral tablet (20 sources)Atypical AntipsychoticStart: 12-16-2016 End: 81-26-4333cvxgeazesq 1000 mg oral tablet (20 sources)Aluminum ComplexStart: 47-17-3193kqvi 1 tablet by mouth twice daily Sucralfate 1 gram tablet Active 0 .ROUTE .COMPLEX 60 May 20, 2024 9:10am TAKE 1 TABLET BY MOUTH TWICE DAILY ON AN EMPTY STOMACHStart: 11-09-2023 End: 93-15-5332Lknlz: 11-09-2023 End: 42-94-0701oxkk 1 tablet by mouth twice dailySucralfate 1 [...] MOUTH TWICE DAILY ON AN EMPTY STOMACHStart: 32-35-2248xfki 1 tablet by mouth twice dailySucralfate Active 0 .ROUTE .COMPLEX 60 November 09, 2023 8:32am TAKE 1 TABLET BY MOUTH TWICE DAILY MARIEL EMPTY STOMACHStart: 07-29-2021 End: 89-53-4875Cmjmw: 00-09-0770qpze 1 g by mouth twice dailySucralfate Active 1 GM PO Twice daily July 29, 2021 12:00amStart: 15-83-8591gxip 1 tablet by mouth every eight hoursSucralfate 1 GM 1 tablet on an empty stomach Orally tid for 30 days August, Activesucralfate (Carafate) 1 g tablet every 12 (twelve) hours Activetake 1 tablet by mouth twice dailytake 1 tablet by mouth twice dailySucralfate 1 GM TAKE 1 TABLET BY MOUTH TWICE DAILY ON AN EMPTY STOMACH for 30 Activetheophylline 200 mg extended release oral capsule (20 sources)MethylxanthineStart: 08-16-2021 End: 90-00-3833Vhzaw: 07-13-2013 End: hr venlafaxine 150 mg extended release oral capsule (20 sources)Serotonin and Norepinephrine Reuptake InhibitorStart: 12-16-2016 End: 98-56-9021qbdfdxyszjot 20 mg oral tablet (20 sources)Start: 01-24-2018 End: 42-08-5394Okkno: 12-16-2016 End: 38-65-6979yveqqego tartrate 6.25 mg extended release oral tablet (20 sources)gamma-Aminobutyric Acid-ergic AgonistStart: 07-29-2021 End: 71-55-6013Phnbb: 04-17-2017 End: 73-50-2983Axyce: 12-16-2016 End: 01-09-0473Pdufa: 12-16-2016 End: 03-34-0845psyl 1 tablet by mouth at bedtime as neededZolpidem 10 mg tablet Discontinued 1 TAB PO Bedtime as needed for Insomnia December 26, 2016 12:47pm April 17, 2017 10:58am Problems Active Problems Problem ClassificationProblemDateDocumented DateEpisodic/ChronicAbdominal pain (20 sources)Abdominal pain; Translations: [Unspecified abdominal pain]Onset: 01-14-2024 Resolved: 614223-24-9215AmnwjsmkAmhji and unspecified renal failure (20 sources)Injury of kidney; Translations: [Acute kidney failure, unspecified] Onset: 01-14-2024 Resolved: 229984-79-0031LfozlhhgKsjlwqzqroeneg/social admission (8 sources)Patient encounter status; Translations: [Dietary counseling and surveillance]65-59-2794MknzckugCnelrkapr and vision defects (20 sources)Visual hallucinations; Translations: [Visual hallucinations]Onset: 01-14-2024 Resolved: 481450-12-7140UxxejwfrVvuhbpy kidney disease (20 sources)Chronic kidney disease stage 3B ; Translations: [Stage 3b chronic kidney disease]Onset: 01-14-2024 Resolved: 570134-36-6391FpykeffPgcaumr kidney disease (3 sources)Chronic kidney disease; Translations: [Stage 3b chronic kidney disease N18.32]Onset: 04-02-2021 Resolved: 13-16-9852Otmoqhq obstructive pulmonary disease and bronchiectasis (20 sources)Chronic obstructive lung disease; Translations: [Chronic obstructive pulmonary disease, unspecified]Onset: 567211-25-7620EbyqqwmEyorhde ulcer of skin (20 sources)Chronic ulcer of skin of lower leg; Translations: [Non-pressure chronic ulcer of other part of leftlower leg limited to breakdown of skin]Onset: 05-01-2021 Resolved: 15-92-8276MezyvcnIokxckzdkbe and hemorrhagic disorders (20 sources)Thrombocytopenic purpura; Translations: [Immune thrombocytopenic purpura]Onset: 333183-26-0961AixpwcrHeeltwgkdp and other anemia (20 sources)Iron deficiency anemia; Translations: [Iron deficiency anemia, unspecified]Onset: 01-14-2024 Resolved: 323769-38-5797SjrmmlopSguxmubprp and other anemia (16 sources)Iron deficiency anemia, unspecified; Translations: [Iron deficiency anemia, unspecified]82-64-2865MdknuetiJkodwwpo mellitus with complications (20 sources)Type 2 diabetes mellitus; Translations: [Type 2 diabetes mellitus with unspecified complications]Onset: 04-02-2021 Resolved: 53-12-2197ElgvhauFhwdnmup mellitus without complication (20 sources)Diabetes mellitus; Translations: [Type 2 diabetes mellitus without complications]Onset: 01-14-2024 Resolved: 726972-79-2740HggetcwPjkzrtku of white blood cells (20 sources)Neutropenia; Translations: [Neutropenia, unspecified]Onset: 089500-79-5993OhnfuopEtovckqan of lipid metabolism (8 sources)Mixed hyperlipidemia; Translations: [Mixed hyperlipidemia]01-20-2024 ChronicEsophageal disorders (20 sources)Gastroesophageal reflux disease; Translations: [Gastro-esophageal reflux disease without esophagitis]Onset: 03-21-2021 Resolved: 02-29-6737VobjdzwBybhexuzu hypertension (20 sources)Essential hypertension; Translations: [Essential (primary) hypertension]Onset: 10-21-2021 Resolved: 73-36-2118VglnngoThkew of unknown origin (18 sources)Pyrexia of unknown origin; Translations: [Fever, unspecified]Onset: 066310-11-5273JnecvzpvKprpg and electrolyte disorders (20 sources)Dehydration; Translations: [Dehydration]Onset: 01-14-2024 Resolved: 443145-00-5324FdyzkosxRhiiwlldpxjzma ulcer (except hemorrhage) (20 sources)Peptic ulcer; Translations: [Peptic ulcer, site unspecified, unspecified as acute or chronic, without hemorrhage or perforation]Chronic Inflammation; infection of eye (except that caused by tuberculosis or sexually transmitteddisease) (1 source)Unspecified conjunctivitisEpisodicMaintenance chemotherapy; radiotherapy (20 sources)Patient encounter status; Translations: [Encounter for antineoplastic chemotherapy]Onset: 875798-06-7291PwxceajOzsnikf and fatigue (20 sources)Fatigue; Translations: [Chronic fatigue, unspecified]Onset: 01-14-2024 Resolved: 278557-69-2112KfupfxdMybaouf and fatigue (20 sources)Asthenia; Translations: [Other malaise]Onset: 01-14-2024 Resolved: 337447-67-2837WsbeaexiUgcm disorders (20 sources)Major depression with psychotic features; Translations: [Major depressive disorder, single episode,severe with psychotic features]Onset: 01-14-2024 Resolved: 568059-96-2546QcdkacyMycvyqxx myeloma (20 sources)IgG myeloma; Translations: [Multiple myeloma not having achieved remission]Onset: 911943-49-8309AvqhoerWarfdzi (20 sources)Pain in toe; Translations: [Tinea unguium]91-07-8391Rgnezavi Neoplasms of unspecified nature or uncertain behavior (20 sources)Neuropathy; Translations: [Monoclonal gammopathy]Onset: 01-14-2024 Resolved: 969235-81-1065LocyzhhCvjpbwnrfqu deficiencies (8 sources)Vitamin D deficiency; Translations: [Vitamin D deficiency, unspecified]25-85-0707OddiywaTtpp wounds of extremities (20 sources)Injury of left leg; Translations: [Unspecified open wound, left lower leg, initial encounter]95-27-5084EdemwmfqSiogupfdicqqnn (17 sources)Osteoarthritis of left hip joint; Translations: [Unilateral primary osteoarthritis, left hip]39-56-1507ApmvjumYbhnz aftercare (20 sources)Long-term current use of insulin; Translations: [halfway (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]Onset: 01-14-2024 Resolved: 202019-07-2221QcoedlbpZlirx aftercare (4 sources)Other senior care (current) drug therapyOnset: 12-23-2021 Resolved: 15-44-8656UcdxdpliRewye aftercare (1 source)Follow-up status; Translations: [Encounter for follow-up examination after completed treatment for conditions other than malignant neoplasm] 72-18-4309YwrprcrxBwrer and unspecified benign neoplasm (2 sources)History of polyp of colonEpisodicOther connective tissue disease (20 sources)Rhabdomyolysis; Translations: [Rhabdomyolysis]Onset: 01-14-2024 Resolved: 387347-45-5899QuirqfckBaqra connective tissue disease (20 sources)Recurrent falls ; Translations: [Repeated falls]Onset: 01-14-2024 Resolved: 958017-97-2756LfdomjacVxhyg connective tissue disease (1 source)Repeated fallsEpisodicOther connective tissue disease (3 sources)Trochanteric bursitis; Translations: [Trochanteric bursitis, left hip]69-43-6781KupomesoYdzmb connective tissue disease (1 source)Trochanteric bursitis, left hip; Translations: [Enthesopathy of hip region]27-55-4332DleiuzmrYhrha connective tissue disease (14 sources)Trochanteric bursitis of left hip; Translations: [Trochanteric bursitis, left hip]88-61-8309CaghrgdzOuhjb diseases of kidney and ureters (20 sources)Kidney disease; Translations: [Disorder of kidney and ureter, unspecified]Onset: 01-14-2024 Resolved: 654465-01-3141SjbckyjkAcbpd diseases of veins and lymphatics (20 sources)Acquired lymphedema of lower extremity; Translations: [Lymphedema, not elsewhere classified]ChronicOther diseases of veins and lymphatics (7 sources)Lymphedema, not elsewhere classifiedOnset: 05-23-2021 Resolved: 51-05-2341UbgngfvEaldn diseases of veins and lymphatics (20 sources)Ulcer of lower extremity; Translations: [Venous insufficiency (chronic) (peripheral)]EpisodicOther diseases of veins and lymphatics (20 sources)Venous insufficiency (chronic) (peripheral); Translations: [Varicose veins of lower extremities with inflammation]Onset: 05-01-2021 Resolved: 51-20-8149VbqtlyyrZclzr diseases of veins and lymphatics (15 sources)Stasis dermatitis; Translations: [Venous insufficiency (chronic) (peripheral)]55-93-2254OjagtooaMeqcx diseases of veins and lymphatics (20 sources)Venous stasis edema of bilateral lower limbs; Translations: [Venous insufficiency (chronic) (peripheral)]EpisodicOther diseases of veins and lymphatics (1 source)Peripheral venous insufficiency; Translations: [Venous insufficiency (chronic) (peripheral)]EpisodicOther diseases of veins and lymphatics (20 sources)Disorder of vein of lower extremity; Translations: [Venous insufficiency (chronic) (peripheral)]88-14-4130NwllmigrZfjrl diseases of veins and lymphatics (20 sources)Vascular insufficiency; Translations: [Venous insufficiency (chronic) (peripheral)]Onset: 01-14-2024 Resolved: 975247-37-0923PjwjgltfDfsrj gastrointestinal disorders (20 sources)Irritable bowel syndrome; Translations: [Irritable bowel syndrome without diarrhea]Onset: 01-14-2024 Resolved: 959935-66-4662FvzamtbLemkk gastrointestinal disorders (7 sources)Irritable bowel syndrome without diarrhea; Translations: [Irritable bowel syndrome]01-52-6206DpwjagkWwkgc gastrointestinal disorders (20 sources)Diarrhea; Translations: [Diarrhea, unspecified]Onset: 01-14-2024 Resolved: 059308-04-2696TewdgbntQpxox gastrointestinal disorders (1 source)Diarrhea, unspecifiedEpisodicOther hematologic conditions (10 sources)Raised cardiac enzyme or marker; Translations: [Other specified abnormalities of plasma proteins]44-64-3941SwqxhzkyBuveq hematologic conditions (20 sources)H/O: anemia - iron deficient; Translations: [Personal history of diseases of the blood and blood-forming organs and certain disorders involving the immune mechanism]48-43-4408JixjzlzxYstmj hematologic conditions (1 source)Personal history of diseases of the blood and blood-forming organs and certain disorders involving the immune mechanism; Translations: [Personal history of diseases of blood and blood-forming organs]22-61-3860DjtaidnbDbidc inflammatory condition of skin (20 sources)Pruritic rash; Translations: [Other pruritus]Onset: 01-14-2024 Resolved: 794635-67-6604XujndkmsDooyn inflammatory condition of skin (1 source)Other pruritus; Translations: [Other specified pruritic conditions] 65-74-5475HdghitbhGhqzv nervous system disorders (20 sources)Chronic pain; Translations: [Other chronic pain]Onset: 01-14-2024 Resolved: 372139-31-5366MusxhufBtwig nervous system disorders (6 sources)Other chronic pain; Translations: [OTHER CHRONIC PAIN]Onset: 08-07-2021 Resolved: 15-48-2043NlnqnnrQozfo nervous system disorders (20 sources)Metabolic encephalopathy; Translations: [Metabolic encephalopathy] Onset: 01-14-2024 Resolved: 995091-42-3363EyyaysbCmcso nervous system disorders (1 source)Polyneuropathy, unspecifiedChronicOther nervous system disorders (20 sources)Pain due to neoplastic disease; Translations: [Neoplasm related pain (acute) (chronic)]60-05-9688VmqjropUbwnf nervous system disorders (20 sources)Abnormal gait; Translations: [Unsteadiness on feet]Onset: 01-14-2024 Resolved: 253442-01-1193YhhscrtwPvpxb nervous system disorders (2 sources)Unsteadiness on feetEpisodicOther non-traumatic joint disorders (2 sources)Pain in left hipEpisodicOther non-traumatic joint disorders (18 sources)Swelling of hand; Translations: [Effusion, unspecified hand] 46-81-4274AxtrpxiwVcsoc non-traumatic joint disorders (1 source)Effusion, unspecified hand; Translations: [Effusion of joint, hand] 03-26-9908RnztydwoUolyi nutritional; endocrine; and metabolic disorders (20 sources)Morbid obesity; Translations: [Morbid (severe) obesity due to excess calories]32-84-3089VpieuqhEsaba nutritional; endocrine; and metabolic disorders (20 sources)Hypomagnesemia; Translations: [Hypomagnesemia]Onset: 01-14-2024 Resolved: 355690-57-2540PwnibcxLsdme nutritional; endocrine; and metabolic disorders (20 sources)Morbid (severe) obesity due to excess calories; Translations: [Morbid obesity]16-11-7994XjoynkwFnsld nutritional; endocrine; and metabolic disorders (20 sources)Obesity; Translations: [Obesity, unspecified]63-91-7389BbdtjkbGlcje nutritional; endocrine; and metabolic disorders (20 sources)Body mass index 40+ - severely obese; Translations: [Morbid (severe) obesity due to excess calories]Onset: 01-14-2024 Resolved: 720378-21-7658OsshpxtThpsv nutritional; endocrine; and metabolic disorders (6 sources)Severe obesity; Translations: [Class 3 severe obesity due to excess calories with serious comorbidity and body mass index (BMI) of 45.0 to 49.9 in adult ([facility])]58-17-2855KeqrudwHpzye nutritional; endocrine; and metabolic disorders (18 sources)Obesity caused by energy imbalance; Translations: [Morbid (severe) obesity due to excess calories]12-96-9625VtcewdqNmfsi nutritional; endocrine; and metabolic disorders (2 sources)Body mass index (BMI) 40.0-44.9, adult; Translations: [Body Mass Index 40.0-44.9, adult]Onset: 179791-09-0174QhmzhikOdieh screening for suspected conditions (not mental disorders or infectious disease) (20 sources)Encounter for screening mammogram for malignant neoplasm of breast; Translations: [Encounter for other screening for malignant neoplasm of breast] Onset: 02-27-2021 Resolved: 98-91-2640VrazknyqChhju skin disorders (20 sources)Hemosiderin pigmentation of skin; Translations: [Other specified disorders of pigmentation]Onset: 01-14-2024 Resolved: 377902-57-5580JsfzcneeUueox skin disorders (6 sources)Asteatosis cutis; Translations: [Xerosis cutis]01-65-8320Nopyacfv Peripheral and visceral atherosclerosis (10 sources)Peripheral vascular disease; Translations: [Peripheral vascular disease, unspecified]ChronicPneumonia (except that caused by tuberculosis or sexually transmitted disease) (15 sources)Pneumonia; Translations: [Pneumonia, unspecified organism]Onset: 606462-63-1842PzgtsyspSfifxwue codes; unclassified (20 sources)Obstructive sleep apnea syndrome; Translations: [Obstructive sleep apnea (adult) (pediatric)]Onset: 709674-27-0938CdbmeykZnydvvqy codes; unclassified (9 sources)Obstructive sleep apnea (adult) (pediatric); Translations: [Obstructive sleep apnea (adult)(pediatric)]Onset: 12-23-2021 Resolved: 00-17-5815UdqyltgQwhrulwd codes; unclassified (20 sources)Peripheral edema; Translations: [Edema, unspecified]Onset: 01-14-2024 Resolved: 158725-92-4757QomfmxkhYlgsmbiz codes; unclassified (7 sources)Localized edema; Translations: [Edema]10-27-4833DkcuivkzCqqufxdv codes; unclassified (17 sources)Inflammatory azocenxy75-37-7072UdytjmigFbjelffhtgt failure; insufficiency; arrest (adult) (20 sources)Chronic hypercapnic respiratory failure; Translations: [Chronic respiratory failure with hypercapnia]Onset: 01-14-2024 Resolved: 588920-21-0021LwypbojTakpqqh on above:4-5 L nasal cannula Spondylosis; intervertebral disc disorders; other back problems (20 sources)Degeneration of lumbar intervertebral disc; Translations: [Other intervertebral disc degeneration, lumbar region]Onset: 08-22-2021 Resolved: 84-04-6059XjnljzvJgrciex disorders (20 sources)Acquired hypothyroidism; Translations: [Hypothyroidism, unspecified] Onset: 04-02-2021 Resolved: 13-09-7426OjcgbahVwcgmnp disorders (20 sources)Disorder of thyroid gland; Translations: [Disorder of thyroid, unspecified]Onset: 01-14-2024 Resolved: 454669-70-0131OjvpmlhtNtemepqxtkle (4 sources)LOW BACK PAIN, UNSPECIFIED; Translations: [LOW BACK PAIN, UNSPECIFIED]Onset: 13-29-3125Vxafpopijaiq (2 sources)Previously scheduled appointment.Unclassified (1 source)You have been scheduled for a follow up appointment for the following date and time, please call to reschedule if needed.Urinary tract infections (20 sources)Urinary tract infectious disease; Translations: [Urinary tract infection, site not specified]Onset: 01-14-2024 Resolved: 418686-64-7449ZxjoeanuLpmlidwd veins of lower extremity (20 sources)Skin ulcer; Translations: [Varicose veins of unspecified lower extremity with ulcer of unspecified site]Onset: 07-22-2021 Resolved: 30-36-5816Axyxwfxn Past or Other Problems Problem ClassificationProblemDateDocumented DateEpisodic/ChronicDeficiency and other anemia (1 source)Deficiency and other anemiaOnset: 10-03-2021 Resolved: 79-00-3898Hlivwwphqmzgu symptoms and ill-defined conditions (1 source)Hematuria, unspecifiedOnset: 12-23-2021 Resolved: 55-12-5787QrbjlscgKklpq aftercare (1 source)long term care phlebotomist (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Onset: 04-02-2021 Resolved: 30-92-5070QywynwtmFctds non-traumatic joint disorders (1 source)Effusion, unspecified joint; Translations: [Effusion, unspecified joint]Onset: 32-00-5086NxbdbwocZjkwy non-traumatic joint disorders (1 source)Stiffness of unspecified joint, not elsewhere classified; Translations: [Stiffness of unspecified joint, not elsewhere classified]Onset: 56-57-7475BpzvnylqQtjoe skin disorders (1 source)Localized swelling, mass and lump, lower limb, bilateralOnset: 03-04-2021 Resolved: 87-10-9223PdsofhskNympv skin disorders (2 sources)Generalized hyperhidrosisOnset: 05-23-2021 Resolved: 65-14-6524MdmwkwonVsrqdcoo codes; unclassified (1 source)Edema, unspecifiedOnset: 06-20-2021 Resolved: 13-28-7947BlkwhroyWyoizxcejtp; intervertebral disc disorders; other back problems (20 sources)Radiculopathy, lumbar region; Translations: [Sciatica]Onset: 08-22-2021 Resolved: 81-63-9443HztoftemPhcaphxiieil (2 sources)Unspecified vitamin D deficiency 268.9Onset: 05-15-2021 Resolved: 09-91-1577Aqhzspjeutfa (1 source)Low back pain, unspecified M54.50Onset: 08-07-2021 Resolved: 48-47-6527Nnwecjeqiqel (1 source)Cough R05.9Unclassified (1 source)LOW BACK PAIN, UNSPECIFIED; Translations: [LOW BACK PAIN, UNSPECIFIED] Onset: 65-09-1136Rldxwqqxxcjy (20 sources)Inflammatory disorder; Translations: [Inflammation]04-28-2023 Results Test NameValueInterpretationReference RangeFacilityAlanine aminotransferase [Enzymatic activity/volume] in Serum or PlasmaOrdered By: Roxane Bills on 00-32-9406SIQ [Catalytic activity/Vol]35 U/LNormal7-52K[facility]tering HealthComment on above:Performed By: #### CBC, CMP ####[facility] [place] [address] USAAlbumin [Mass/volume] in Serum or Plasma by Bromocresol green (BCG) dye binding methoOrdered By: Roxane Bills on 07-42-6831Jspnptc BCG dye [Mass/Vol]3.7 g/dL3.5-5.7FAshtabula General HospitalAlkaline phosphatase [Enzymatic activity/volume] in Serum or PlasmaOrdered By: Roxane Bills on 94-79-7417PMC [Catalytic activity/Vol]142 U/WSsao07-873 [facility] HealthComment on above:Performed By: #### CBC, CMP ####[facility] [place] [address] [facility] Aspartate aminotransferase [Enzymatic activity/volume] in Serum or PlasmaOrdered By: Roxane Bills on 62-54-2790AVK [Catalytic activity/Vol]25 U/SEfrcso58-25 [facility] HealthComment on above:Performed By: #### CBC, CMP ####[address] [address] [place] Basophils [#/volume] in Blood by Automated countOrdered By: Roxane Bills on 11-32-4157Pkrzmvcit (Bld) [#/Vol]0.0 10*3/uLNormal0.0-0.2FAshtabula General HospitalComment on above:Result Comment: PERFORMED BY:[address] [place], [place] [id number] MEDICAL DIRECTORELAINE CHAUDHARY M.D.Performed By: #### CBC, CMP ####[address] [address] USABasophils/100 leukocytes in Blood by Automated countOrdered By: Roxane Bills on 12-47-8180Gawblxyrj/100 WBC (Bld)0.5 %Normal.K[facility]tering HealthComment on above:Performed By: #### CBC, CMP ####[address] [address] USABilirubin.total [Mass/volume] in Serum or PlasmaOrdered By: Roxane Bills on 02-80-9725Tiivnwxsp [Mass/Vol]0.4 mg/dLNormal0.3-1.0Kettering HealthComment on above:Performed By: #### CBC, CMP ####[address] [address] USACBC W Auto Differential panel (Bld)on 01-22-6588Ptgggyloy (Bld) [#/Vol]0.0 10*3/uL0.0 - 0.2 10*3/uLNOMS HealthcareBasophils/100 WBC Manual cnt (Syn fld)0.5 %.NOMS HealthcareEosinophils (Bld) [#/Vol]0.1 10*3/uL0.0 - 0.45 10*3/uLNOMS Healthcare Eosinophils/100 WBC Manual cnt (Syn fld)3.3 %.[facility] HealthcareErythrocyte distribution width (RBC) [Ratio]16.4 %High11.9 - 15.3 %NOM HealthcareHematocrit (Bld) [Volume fraction]36.9 %34.0 - 46.4 %[facility] HealthcareHemoglobin (Bld) [Mass/Vol]12.4 g/dL11.8 - 15.4 g/dLUINTAH BASIN MEDICAL CENTER HealthcareInterpretation and review of laboratory resultsAbnormalUINTAH BASIN MEDICAL CENTER HealthcareLymphocytes (Bld) [#/Vol]1.0 10*3/uL 1.00 - 4.8 10*3/uLNOMS HealthcareLymphocytes/100 WBC Manual cnt (Syn fld)23.4 %. [facility] (RBC) [Entitic mass]30.6 pg24.7 - 34.3 pgSac-Osage HospitalMCHC (RBC) [Mass/Vol]33.6 g/dL32.0 - 35.0 g/dLSac-Osage HospitalMCV (RBC) [Entitic vol] 91.1 fL80 - 100 fLUINTAH BASIN MEDICAL CENTER HealthcareMonocytes (Bld) [#/Vol]0.6 10*3/uL0.0 - 0.8 10*3/uLNOMS HealthcareMonocytes+Macrophages/100 WBC Manual cnt (Syn fld)13.8 %. [facility] HealthcareNeutrophils (Bld) [#/Vol]2.6 10*3/uL1.8 - 7.7 10*3/uLNOMS HealthcareNeutrophils/100 WBC Manual cnt (Syn fld)59.0 %.[facility] HealthcareNRBC0.1 /100{WBC}0 - 0.5 /100{WBC}NOM HealthcarePlatelet mean volume (Bld) [Entitic vol]9.3 fL6.3 - 10.7 fLNOWI HealthcarePlatelets (Bld) [#/Vol]82 10*3/lTPlh017 - 450 10*3/uLNOMS HealthcareRBC LM.HPF (Urine sed) [#/Area]4.05 10*6/uL3.60 - 5.00 10*6/uLNOMS HealthcareWBC (Bld) [#/Vol]4.4 10*3/uL3.8 - 11.6 10*3/uLNOMS HealthcareWBC LM.HPF (Urine sed) [#/Area]4.4 [CFU]/mL3.8 - 11.6 [CFU]/mLNOMS HealthcareNOMS HealthcareCalcium [Mass/volume] in Serum or PlasmaOrdered By: Roxane Sanju on 64-67-6871Omwsflh [Mass/Vol]7.7 mg/dLLow8.6-10.3FAshtabula General HospitalComment on above:Performed By: #### CBC, CMP ####[place] [address] USACarbon dioxide, total [Moles/volume] in Serum or PlasmaOrdered By: Roxane Bills on 82-51-8756BF4 [Moles/Vol]33.7 mmol/LHigh21.0-31.0Kettering HealthComment on above:Performed By: #### CBC, CMP ####[place] [id number] USAChloride [Moles/volume] in Serum or PlasmaOrdered By: Roxane Bills on 31-31-5657Hyynxlhv [Moles/Vol]99 mmol/AYuhvgl36-644KpowoiyetKettering HealthComment on above:Performed By: #### CBC, CMP ####[place] [id number] [facility] Complete Blood Count Auto Diffon 88-05-9605Rmst Corpuscular HGB Conc33.6 g/dL Phfkuu70.0-35.0The [facility] Physician GroupComment on above:Performed By: #### CBC, CMP ####[place] [address] USANRBC%0.1 /100{WBC}Normal0-0.5The [facility] Physician GroupComment on above: Performed By: #### CBC, CMP ####[place] [address] USAWhite Blood Count4.4 [CFU]/mLNormal3.8-11.6The [facility] Physician GroupComment on above:Performed By: #### CBC, CMP ####[facility] [place] [address] [facility] Comprehensive Metabolic Panelon 10-81-7946Hyfynce [Mass/Vol]3.7 g/dLNormal 3.5-5.7The [facility] Physician GroupComment on above:Performed By: #### CBC, CMP ####[place] [address] [place] [address] [place] Creatinine Clr Calc Kwmqrpwr30.86NormalThSt. Luke's Wood [facility] Physician GroupComment on above:Result Comment: PERFORMED BY:[address] [place], [place] [phone] MEDICAL DIRECTORELAINE CHAUDHARY M.D.Performed By: #### CBC, CMP ####[address] [address] USAGFR/1.73 sq M.predicted MDRD (S/P/Bld) [Vol rate/Area]48.943 mL/min/{1.73_m2}NormalThe [facility] Physician [facility] Medical CenterComment on above:Performed By: #### CBC, CMP ####[address] [address] [facility]ICComprehensive metabolic panelon 95-32-8584Lvgoyux [Mass/Vol]3.7 g/dL3.5 - 5.7 g/dLNOMS HealthcareAlbumin/Globulin [Mass ratio]1.8 {ratio}NOMS HealthcareALP [Catalytic activity/Vol]142 U/LHigh34 - 104 U/LNOMS HealthcareALT [Catalytic activity/Vol]35 U/L7 - 52 U/LNOMS HealthcareAnion gap [Moles/Vol]12.4 mmol/L6.0 - 15.0NOMS HealthcareAST [Catalytic activity/Vol]25 U/L13 - 39 U/LNOMS HealthcareBilirubin [Mass/Vol]0.4 mg/dL0.3 - 1.0 mg/dLNOMS HealthcareCalcium [Mass/Vol]7.7 mg/dLLow8.6 - 10.3 mg/dLNOMS HealthcareChloride [Moles/Vol]99 mmol/L98 - 107 mmol/LNOMS HealthcareCO2 [Moles/Vol]33.7 mmol/LHigh 21.0 - 31.0 mmol/LNOMS HealthcareCreatinine (U) [Mass/Vol]1.22 mg/dLHigh0.60 - 1.20 mg/dLNOWI HealthcareCREATININE CLR CALC QXTLXSDV93.86NOMS Healthcare GFR/1.73 sq M.predicted MDRD (S/P/Bld) [Vol rate/Area]48.943 mL/min/{1.73_m2} NOMS HealthcareGlobulin (S) [Mass/Vol]2.1 g/dLNOWI HealthcareGlucose [Mass/Vol] 153 mg/iRGapd87 - 100 mg/dLNOWI HealthcareComment on above:Random Glucose Reference Range is dependent on time and content of last meal. Glucose of more than 200 mg/dL in a nonstressed, ambulatory subject supports the diagnosis of Diabetes Mellitus. ADA recommended reference range Interpretation and review of laboratory resultsAbnormalNOMS HealthcarePotassium [Moles/Vol]3.1 mmol/LLow3.5 - 5.1 mmol/LNOMS HealthcareProtein [Mass/Vol]5.8 g/dLLow6.4 - 8.9 g/dLNOWI HealthcareSodium [Moles/Vol]142 mmol/L136 - 145 mmol/L [facility] HealthcareUrea nitrogen [Mass/Vol]19 mg/dL7 - 25 mg/dLNOCarondelet Health HealthcareCreatinine [Mass/volume] in Serum or PlasmaOrdered By: Roxane Bills on 45-66-1928Wqoosdhyen [Mass/Vol]1.22 mg/dLHigh0.60-1.20Kettering HealthComment on above:Performed By: #### CBC, CMP ####[place] [address] USAEosinophils [#/volume] in Blood by Automated countOrdered By: Roxane Bills on 25-63-4746Treeglhfcvp (Bld) [#/Vol]0.1 10*3/uLNormal0.0-0.45Kettering HealthComment on above:Performed By: #### CBC, CMP ####[place] [address] USAEosinophils/100 leukocytes in Blood by Automated countOrdered By: Roxane Sanju on 06-90-6927Awjwnhknsks/100 WBC (Bld)3.3 %Normal. Kettering HealthComment on above:Performed By: #### CBC, CMP ####[facility] Erythrocyte distribution width [Ratio] by Automated countOrdered By: Roxane Bills on 11-36-0628Mozhqrgxrzy distribution width (RBC) [Ratio]16.4 %High11.9-15.3 Kettering HealthComment on above:Performed By: #### CBC, CMP ####[place] [address] Erythrocytes [#/volume] in Blood by Automated countOrdered By: Roxane Bills on 50-79-6280PPT (Bld) [#/Vol]4.05 10*6/uLNormal3.60-5.00Kettering HealthComment on above:Performed By: #### CBC, CMP ####[address]Glomerular filtration rate [Volume Rate/Area] in Serum, Plasma or Blood by CreatinineOrdered By: Roxane Bills on 91-39-0668Zqlzwnqxqg filtration rate [Volume Rate/Area] in Serum, Plasma or Blood by Hujiklzfzb59.943 mL/MinKettering HealthGlucose [Mass/volume] in Serum or PlasmaOrdered By: Roxane Bills on 46-31-0086Buemqxw [Mass/Vol]153 mg/eKCwsn39-837JroqoxsapKettering HealthComment on above: Result Comment: Random Glucose Reference Range is dependent on time and content of last meal. Glucose of more than 200 mg/dL in a nonstressed, ambulatory subject supports the diagnosis of Diabetes Mellitus. ADA recommended reference rangePerformed By: #### CBC, CMP ####[facility] [place] [address] USAHematocrit [Volume Fraction] of Blood by Automated countOrdered By: Roxane Bills on 40-88-0656Wzfouwhkzg (Bld) [Volume fraction]36.9 % Oujxfe19.0-46.4FAshtabula General HospitalComment on above:Performed By: #### CBC, CMP ####[address] [address] USAHemoglobin [Mass/volume] in BloodOrdered By: Roxane Bills on 02-18-2025 Hemoglobin (Bld) [Mass/Vol]12.4 g/jDMqlciy71.8-15.4FAshtabula General HospitalComment on above:Performed By: #### CBC, CMP ####[place] [address] USALeukocytes [#/volume] corrected for nucleated erythrocytes in Blood by Automated counOrdered By: Roxane Bills on 53-88-1095UDA corrected for nucl RBC Auto (Bld) [#/Vol]4.4 10*3/uL 3.8-11.6FAshtabula General HospitalLeukocytes [#/volume] in Blood by Automated countOrdered By: Roxane Bills on 65-09-6112XXJ (Bld) [#/Vol]4.4 10*3/uL Normal3.8-11.6FAshtabula General HospitalComment on above:Performed By: #### CBC, CMP ####[address] [address] USALymphocytes [#/volume] in Blood by Automated countOrdered By: Roxane Bills on 38-58-0305Mlangklayyj (Bld) [#/Vol]1.0 10*3/uLNormal1.00-4.8Kettering HealthComment on above:Performed By: #### CBC, CMP ####[address] [address] [place] Lymphocytes/100 leukocytes in Blood by Automated countOrdered By: Roxane Bills on 22-14-5277Nzgxxemedhl/100 WBC (Bld)23.4 %Normal.Kettering HealthComment on above:Performed By: #### CBC, CMP ####[address] [address] USAMCH [Entitic mass] by Automated countOrdered By: Roxane Bills on 27-29-8912KJG (RBC) [Entitic mass]30.6 eyEisnlv07.7-34.3FAshtabula General HospitalComment on above:Performed By: #### CBC, CMP ####[place] [address] [facility] Auto (RBC) [Mass/Vol]Ordered By: Roxane Sanju on 81-97-0838LCJS (RBC) [Mass/Vol]33.6 g/dL32.0-35.0Kettering HealthMCV [Entitic volume] by Automated countOrdered By: Roxane Sanju on 22-06-2205VOK (RBC) [Entitic vol]91.1 zQCcfqvd91-198WyqxaqbprKettering HealthComment on above: Performed By: #### CBC, CMP ####[place] [address] USAMonocytes [#/volume] in Blood by Automated count Ordered By: Roxane Bills on 03-97-6165Spidxtrzp (Bld) [#/Vol]0.6 10*3/uLNormal 0.0-0.8Kettering HealthComment on above:Performed By: #### CBC, CMP ####[place] [address] [place] Monocytes/100 leukocytes in Blood by Automated countOrdered By: Roxane Bills on 55-97-5218Xmbxwkaws/100 WBC (Bld)13.8 %Normal.[facility] Comment on above:Performed By: #### CBC, CMP ####[place] [address] USANeutrophils [#/volume] in Blood by Automated countOrdered By: Roxane Bills on 65-48-9697Tkrqdzlrmpd (Bld) [#/Vol]2.6 10*3/uLNormal1.8-7.7FAshtabula General HospitalComment on above:Performed By: #### CBC, CMP ####[place] [address] USANeutrophils/100 leukocytes in Blood by Automated countOrdered By: Roxane Bills on 56-64-9616Jqvnesfrsvb/100 WBC (Bld)59.0 %Normal.Kettering HealthComment on above:Performed By: #### CBC, CMP ####[place] [address] USANo Panel Information Ordered By: Roxane Bills on 09-88-738382.86[facility] Nucleated erythrocytes [Presence] in Blood by Automated countOrdered By: Roxane Bilsl on 05-55-4049Xnpojjtim RBC Auto Ql (Bld)0.1 /100{WBC}0-0.5FAshtabula General HospitalPlatelet mean volume [Entitic volume] in Blood by Automated countOrdered By: Roxane Bills on 92-09-6855Ioytqtkc mean volume (Bld) [Entitic vol]9.3 fLNormal6.3-10.7FAshtabula General HospitalComment on above:Performed By: #### CBC, CMP ####[place] [address] USAPlatelets [#/volume] in Blood by Automated count Ordered By: Roxane Bills on 55-82-9440Xjtxpanhz (Bld) [#/Vol]82 10*3/lNYfm472-008 Kettering HealthComment on above:Performed By: #### CBC, CMP ####[place] [address] [place] Potassium [Moles/volume] in Serum or PlasmaOrdered By: Roxane Bills on 02-18-2025 Potassium [Moles/Vol]3.1 mmol/LLow3.5-5.1FAshtabula General Hospital Comment on above:Performed By: #### CBC, CMP ####[place] [address] USAProtein [Mass/volume] in Serum or PlasmaOrdered By: Roxane Bills on 14-13-7834Jkqrnbc [Mass/Vol]5.8 g/dLLow6.4-8.9 Kettering HealthComment on above:Performed By: #### CBC, CMP ####[address] [place] [address] [facility]ICSerum globulin measurement by calculation (mass/volume)Ordered By: Roxane Bills on 68-01-3193Isjmfcpf (S) [Mass/Vol]2.1 g/dLNoSelect Medical Specialty Hospital - [facility] Comment on above:Performed By: #### CBC, CMP ####[place] [address] USASerum or plasma albumin/globulin mass ratioOrdered By: Roxane Bills on 73-27-1500Bvgvkqg/Globulin [Mass ratio]1.8 {ratio} NormalKettering HealthComment on above:Performed By: #### CBC, CMP ####[place] [address] [facility] Serum or plasma anion gap determinationOrdered By: Roxane Bills on 10-76-2316Cvptt gap [Moles/Vol]12.4 mmol/LNormal6.0-15.0Kettering HealthComment on above:Performed By: #### CBC, CMP ####[place] [address] USASodium [Moles/volume] in Serum or Plasma Ordered By: Roxane Bills on 77-09-6187Kixbcx [Moles/Vol]142 mmol/IWofqat169-364 Kettering HealthComment on above:Performed By: #### CBC, CMP ####[place] [address] USAUrea nitrogen [Mass/volume] in Serum or PlasmaOrdered By: Roxane Bills on 85-61-0573Smya nitrogen [Mass/Vol]19 mg/dLNormal7-25Kettering HealthComment on above:Performed By: #### CBC, CMP ####[place] [address] USAAlanine aminotransferase [Enzymatic activity/volume] in Serum or PlasmaOrdered By: Roxane Bills on 49-34-8417XQW [Catalytic activity/Vol]25 U/LNormal7-52Kettering HealthComment on above:Performed By: #### CBC, CMP ####[address] [address] USAAlbumin [Mass/volume] in Serum or Plasma by Bromocresol green (BCG) dye binding methoOrdered By: Roxane Bills on 02-13-2025 Albumin BCG dye [Mass/Vol]4.1 g/dL3.5-5.7FAshtabula General Hospital Alkaline phosphatase [Enzymatic activity/volume] in Serum or PlasmaOrdered By: Roxane Bills on 42-38-9751YZB [Catalytic activity/Vol]144 U/ACcam35-356QdxpmqwzjKettering HealthComment on above:Performed By: #### CBC, CMP ####[place] [address] [place] Aspartate aminotransferase [Enzymatic activity/volume] in Serum or PlasmaOrdered By: Roxane Bills on 38-90-0051ASN [Catalytic activity/Vol]19 U/WRpccob85-32 Kettering HealthComment on above:Performed By: #### CBC, CMP ####[place] [address] [place] Basophils [#/volume] in Blood by Automated countOrdered By: Roxane Bills on 09-35-3659Dbxzfiope (Bld) [#/Vol]0.0 10*3/uLNormal0.0-0.2FAshtabula General HospitalComment on above:Result Comment: PERFORMED BY:[address] [place], [place] [phone] MEDICAL DIRECTORELAINE CHAUDHARY M.D.Performed By: #### CBC, CMP ####[place] [address] USABasophils/100 leukocytes in Blood by Automated countOrdered By: Roxane Bills on 10-41-8298Sxtfqtfgq/100 WBC (Bld)0.2 %Normal.Kettering HealthComment on above:Performed By: #### CBC, CMP ####[place] [address] USABilirubin.total [Mass/volume] in Serum or PlasmaOrdered By: Roxane Bills on 91-94-6954Oqyqfmuep [Mass/Vol]0.4 mg/dLNormal0.3-1.0Kettering HealthComment on above:Performed By: #### CBC, CMP ####[facility] [address] [place] [address] [facility] W Auto Differential panel (Bld)on 41-73-5692Lfofacwlw (Bld) [#/Vol]0.0 10*3/uL0.0 - 0.2 10*3/uLNOMS HealthcareBasophils/100 WBC Manual cnt (Syn fld)0.2 %.NOMS HealthcareEosinophils (Bld) [#/Vol]0.1 10*3/uL0.0 - 0.45 10*3/uLNOMS Healthcare Eosinophils/100 WBC Manual cnt (Syn fld)1.9 %.[facility] HealthcareErythrocyte distribution width (RBC) [Ratio]17.0 %High11.9 - 15.3 %NOM HealthcareHematocrit (Bld) [Volume fraction]38.0 %34.0 - 46.4 %NOM HealthcareHemoglobin (Bld) [Mass/Vol]13.0 g/dL11.8 - 15.4 g/dLUINTAH BASIN MEDICAL CENTER HealthcareInterpretation and review of laboratory resultsAbnormalUINTAH BASIN [facility] HealthcareLymphocytes (Bld) [#/Vol]1.5 10*3/uL 1.00 - 4.8 10*3/uLNOMS HealthcareLymphocytes/100 WBC Manual cnt (Syn fld)23.4 %. [facility] HospitalMCH (RBC) [Entitic mass]31.4 pg24.7 - 34.3 pgNOFreeman Cancer InstituteHC (RBC) [Mass/Vol]34.2 g/dL32.0 - 35.0 g/dLSac-Osage HospitalMCV (RBC) [Entitic vol] 91.8 fL80 - 100 fLNOWI HealthcareMonocytes (Bld) [#/Vol]0.7 10*3/uL0.0 - 0.8 10*3/uLNOMS HealthcareMonocytes+Macrophages/100 WBC Manual cnt (Syn fld)10.5 %. NOMS HealthcareNeutrophils (Bld) [#/Vol]4.1 10*3/uL1.8 - 7.7 10*3/uLNOMS HealthcareNeutrophils/100 WBC Manual cnt (Syn fld)64.0 %.NOMS HealthcareNRBC0.1 /100{WBC}0 - 0.5 /100{WBC}NOMS HealthcarePlatelet mean volume (Bld) [Entitic vol]8.6 fL6.3 - 10.7 fLNOMS HealthcarePlatelets (Bld) [#/Vol]113 10*3/gZZfb227 - 450 10*3/uLNOMS HealthcareRBC LM.HPF (Urine sed) [#/Area]4.14 10*6/uL3.60 - 5.00 10*6/uLNOMS HealthcareWBC (Bld) [#/Vol]6.4 10*3/uL3.8 - 11.6 10*3/uLNOMS HealthcareWBC LM.HPF (Urine sed) [#/Area]6.4 [CFU]/mL3.8 - 11.6 [CFU]/mLNOMS HealthcareNOMS HealthcareCalcium [Mass/volume] in Serum or PlasmaOrdered By: Roxane Bills on 18-79-9228Djscdsl [Mass/Vol]8.8 mg/dLNormal8.6-10.3FAshtabula General HospitalComment on above:Performed By: #### CBC, CMP ####[place] [address] [place] [address] USACarbon dioxide, total [Moles/volume] in Serum or PlasmaOrdered By: Roxane Bills on 59-39-7075JI5 [Moles/Vol]33.0 mmol/LHigh21.0-31.0Kettering HealthComment on above:Performed By: #### CBC, CMP ####[place] [address] [place] [id number] USAChloride [Moles/volume] in Serum or PlasmaOrdered By: Roxane Bills on 11-62-1660Srpnfwva [Moles/Vol]94 mmol/RYwf49-801GqpvstispKettering HealthComment on above:Performed By: #### CBC, CMP ####[place] [address] [place] Complete Blood Count Auto Diffon 37-06-9480Kcfx Corpuscular HGB Conc34.2 g/dL Czvroe97.0-35.0The [facility] Physician GroupComment on above:Performed By: #### CBC, CMP ####[place] [address] USANRBC%0.1 /100{WBC}Normal0-0.5The [facility] Physician [facility] CenterComment on above: Performed By: #### CBC, CMP ####[place] [address] USAWhite Blood Count6.4 [CFU]/mLNormal3.8-11.6The [facility] Physician [facility] Medical CenterComment on above:Performed By: #### CBC, CMP ####[place] [address] [facility] Comprehensive Metabolic Panelon 20-07-1683Iaauekf [Mass/Vol]4.1 g/dLNormal 3.5-5.7The [facility] Physician GroupComment on above:Performed By: #### CBC, CMP ####[place] [address] [facility] Creatinine Clr Calc Vuarctzf79.21NormHCA [facility] Physician [facility] Medical CenterComment on above:Result Comment: PERFORMED BY:[address] [place], [place] [phone] MEDICAL LEESA CHAUDHARY M.D.Performed By: #### CBC, CMP ####[place] [address] USAGFR/1.73 sq M.predicted MDRD (S/P/Bld) [Vol rate/Area]45.774 mL/min/{1.73_m2}NormalThe [facility] Physician [facility] CenterComment on above:Performed By: #### CBC, CMP ####[place] [address] [facility]ICComprehensive metabolic panelon 24-64-8381Oustanf [Mass/Vol]4.1 g/dL3.5 - 5.7 g/dLNOMS HealthcareAlbumin/Globulin [Mass ratio]1.4 {ratio}[facility] HealthcareALP [Catalytic activity/Vol]144 U/LHigh34 - 104 U/LNOMS HealthcareALT [Catalytic activity/Vol]25 U/L7 - 52 U/LNOMS HealthcareAnion gap [Moles/Vol]13.5 mmol/L6.0 - 15.0NOMS HealthcareAST [Catalytic activity/Vol]19 U/L13 - 39 U/LNOMS HealthcareBilirubin [Mass/Vol]0.4 mg/dL0.3 - 1.0 mg/dLNOMS HealthcareCalcium [Mass/Vol]8.8 mg/dL8.6 - 10.3 mg/dLNOMS HealthcareChloride [Moles/Vol]94 mmol/LLow98 - 107 mmol/LNOMS HealthcareCO2 [Moles/Vol]33.0 mmol/L High21.0 - 31.0 mmol/LNOMS HealthcareCreatinine (U) [Mass/Vol]1.29 mg/dLHigh0.60 - 1.20 mg/dLNOMS HealthcareCREATININE CLR CALC ICSCEHIC37.21N[facility] Healthcare GFR/1.73 sq M.predicted MDRD (S/P/Bld) [Vol rate/Area]45.774 mL/min/{1.73_m2} [facility] HealthcareGlobulin (S) [Mass/Vol]3.0 g/dLNOWI HealthcareGlucose [Mass/Vol] 355 mg/lFLair85 - 100 mg/dLNOWI HealthcareComment on above:Random Glucose Reference Range is dependent on time and content of last meal. Glucose of more than 200 mg/dL in a nonstressed, ambulatory subject supports the diagnosis of Diabetes Mellitus. ADA recommended reference range Interpretation and review of laboratory resultsAbnormalNOMS HealthcarePotassium [Moles/Vol]3.5 mmol/L3.5 - 5.1 mmol/LNOMS HealthcareProtein [Mass/Vol]7.1 g/dL 6.4 - 8.9 g/dLNOMS HealthcareSodium [Moles/Vol]137 mmol/L136 - 145 mmol/LNOMS HealthcareUrea nitrogen [Mass/Vol]21 mg/dL7 - 25 mg/dLNOMS HealthcareNOWI HealthcareCreatinine [Mass/volume] in Serum or PlasmaOrdered By: Roxane Bills on 92-72-7434Ocnpdnnzqp [Mass/Vol]1.29 mg/dLHigh0.60-1.20Kettering HealthComment on above:Performed By: #### CBC, CMP ####[place] [address] USAEosinophils [#/volume] in Blood by Automated countOrdered By: Roxane Bills on 49-01-0739Wpuzkjbwlhv (Bld) [#/Vol]0.1 10*3/uLNormal0.0-0.45K[facility]tering HealthComment on above:Performed By: #### CBC, CMP ####[place] [address] USAEosinophils/100 leukocytes in Blood by Automated countOrdered By: Roxane Bills on 85-75-4690Sigcydpdhce/100 WBC (Bld)1.9 %Normal. Kettering HealthComment on above:Performed By: #### CBC, CMP ####[address] Erythrocyte distribution width [Ratio] by Automated countOrdered By: Roxane Bills on 68-55-1488Hdxkookhmhi distribution width (RBC) [Ratio]17.0 %High11.9-15.3 Kettering HealthComment on above:Performed By: #### CBC, CMP ####[place] [address] [place] Erythrocytes [#/volume] in Blood by Automated countOrdered By: Roxane Bills on 45-94-5628COI (Bld) [#/Vol]4.14 10*6/uLNormal3.60-5.00K[facility]tering HealthComment on above:Performed By: #### CBC, CMP ####[place] [address] USAGlomerular filtration rate [Volume Rate/Area] in Serum, Plasma or Blood by CreatinineOrdered By: Roxane Bills on 59-21-2184Mfwwayfoae filtration rate [Volume Rate/Area] in Serum, Plasma or Blood by Uuhqpqetyc14.774 mL/MinKettering HealthGlucose [Mass/volume] in Serum or PlasmaOrdered By: Roxane Bills on 91-30-6358Inbepss [Mass/Vol]355 mg/rPXerd96-640BwhawhmhnKettering HealthComment on above: Result Comment: Random Glucose Reference Range is dependent on time and content of last meal. Glucose of more than 200 mg/dL in a nonstressed, ambulatory subject supports the diagnosis of Diabetes Mellitus. ADA recommended reference rangePerformed By: #### CBC, CMP ####[address] [address] USAHematocrit [Volume Fraction] of Blood by Automated countOrdered By: Roxane Bills on 73-91-6192Uyljzsozjn (Bld) [Volume fraction]38.0 % Xpykdn18.0-46.4FAshtabula General HospitalComment on above:Performed By: #### CBC, CMP ####[place] [address] USAHemoglobin [Mass/volume] in BloodOrdered By: Roxane Bills on 02-13-2025 Hemoglobin (Bld) [Mass/Vol]13.0 g/tVZdgoai46.8-15.4FAshtabula General HospitalComment on above:Performed By: #### CBC, CMP ####[place] [address] USALeukocytes [#/volume] corrected for nucleated erythrocytes in Blood by Automated counOrdered By: Roxane Bills on 86-96-2137IDD corrected for nucl RBC Auto (Bld) [#/Vol]6.4 10*3/uL 3.8-11.6FAshtabula General HospitalLeukocytes [#/volume] in Blood by Automated countOrdered By: Roxane Bills on 63-31-9028YIH (Bld) [#/Vol]6.4 10*3/uL Normal3.8-11.6FAshtabula General HospitalComment on above:Performed By: #### CBC, CMP ####[address] [address] USALymphocytes [#/volume] in Blood by Automated countOrdered By: Roxane Bills on 74-16-4124Kecyouuoiuu (Bld) [#/Vol]1.5 10*3/uLNormal1.00-4.8Kettering HealthComment on above:Performed By: #### CBC, CMP ####[place] [address] [facility] Lymphocytes/100 leukocytes in Blood by Automated countOrdered By: Roxane Bills on 38-22-3885Cpzmimhgfwu/100 WBC (Bld)23.4 %Normal.Kettering HealthComment on above:Performed By: #### CBC, CMP ####[address] [Entitic mass] by Automated countOrdered By: Roxane Bills on 56-24-9436LDL (RBC) [Entitic mass]31.4 uvGxfqaw06.7-34.3FAshtabula General HospitalComment on above:Performed By: #### CBC, CMP ####[place] [address] [facility] Auto (RBC) [Mass/Vol]Ordered By: Roxane Bills on 43-78-7784IWHF (RBC) [Mass/Vol]34.2 g/dL32.0-35.0St. [facility] HospitalV [Entitic volume] by Automated countOrdered By: Roxane Bills on 40-51-7318MEJ (RBC) [Entitic vol]91.8 vVGrvuuh51-073BhlepvaubKettering HealthComment on above: Performed By: #### CBC, CMP ####[place] [address] USAMonocytes [#/volume] in Blood by Automated count Ordered By: Roxane Bills on 73-82-4101Aadailgag (Bld) [#/Vol]0.7 10*3/uLNormal 0.0-0.8Kettering HealthComment on above:Performed By: #### CBC, CMP ####[place] [id number] [place] Monocytes/100 leukocytes in Blood by Automated countOrdered By: Roxane Bills on 83-79-8819Kevhnabvo/100 WBC (Bld)10.5 %Normal.[facility] Comment on above:Performed By: #### CBC, CMP ####[place] [id number] USANeutrophils [#/volume] in Blood by Automated countOrdered By: Roxane Bills on 62-03-7772Wiifwfszsxt (Bld) [#/Vol]4.1 10*3/uLNormal1.8-7.7FAshtabula General HospitalComment on above:Performed By: #### CBC, CMP ####[place] [id number] [place]ANeutrophils/100 leukocytes in Blood by Automated countOrdered By: Roxane Sanju on 03-85-9488Cvzuakslnks/100 WBC (Bld)64.0 %Normal.[facility]ettering HealthComment on above:Performed By: #### CBC, CMP ####[place] [id number] [place]ANo Panel Information Ordered By: Roxane Garibayse on [id number] Nucleated erythrocytes [Presence] in Blood by Automated countOrdered By: Roxane Garibayse on 32-42-2228Gstyuokmo RBC Auto Ql (Bld)0.1 /100{WBC}0-0.5FAshtabula General HospitalPlatelet mean volume [Entitic volume] in Blood by Automated countOrdered By: Roxane Bills on 95-61-0184Pmjhgsxp mean volume (Bld) [Entitic vol]8.6 fLNormal6.3-10.7FAshtabula General HospitalComment on above:Performed By: #### CBC, CMP ####[place] [id number] [place]APlatelets [#/volume] in Blood by Automated count Ordered By: Roxane Bills on 92-22-7925Ukjkcscwt (Bld) [#/Vol]113 10*3/jDPyy967-380 [facility] HealthComment on above:Performed By: #### CBC, CMP ####[address] [address] [place] Potassium [Moles/volume] in Serum or PlasmaOrdered By: Roxane Bills on 02-13-2025 Potassium [Moles/Vol]3.5 mmol/LNormal3.5-5.1FAshtabula General Hospital Comment on above:Performed By: #### CBC, CMP ####[place] [address] [place]Protein [Mass/volume] in Serum or PlasmaOrdered By: Roxane Bills on 50-17-1218Ouvgaly [Mass/Vol]7.1 g/dLNormal6.4-8.9 [facility] HealthComment on above:Performed By: #### CBC, CMP ####[place] [address] USASerum globulin measurement by calculation (mass/volume)Ordered By: Roxane Bills on 42-95-0911Bxtpvjxb (S) [Mass/Vol]3.0 g/dLDoctors Hospital Comment on above:Performed By: #### CBC, CMP ####[place] [address] USASerum or plasma albumin/globulin mass ratioOrdered By: Roxane Bills on 63-05-5508Zcugsml/Globulin [Mass ratio]1.4 {ratio} NormalKettering HealthComment on above:Performed By: #### CBC, CMP ####[address] Serum or plasma anion gap determinationOrdered By: Roxane Bills on 91-82-1052Ixyyf gap [Moles/Vol]13.5 mmol/LNormal6.0-15.0Kettering HealthComment on above:Performed By: #### CBC, CMP ####[place] [address] USASodium [Moles/volume] in Serum or Plasma Ordered By: Roxane Bills on 11-76-0451Bbxtbq [Moles/Vol]137 mmol/RZlyepi482-509 Kettering HealthComment on above:Performed By: #### CBC, CMP ####[facility] [place] [address] USAThyroid Stim Hormone w/Rflxon 23-07-2619Cwdxegm Stim Hormone w/Rflx3.06 u[iU]/mLNormal 0.45-5.33The [facility] Physician GroupComment on above:Result Comment: PERFORMED BY:[address] [place], [place] [phone] MEDICAL DIRECTORELAINE CHAUDHARY M.D.Performed By: #### TSH3 wRFLX ####[address] [place], [place] [address]XMP Thyrotropin [Units/volume] in Serum or PlasmaOrdered By: Peri Tyson on 41-46-5525TQG Qn3.06 m[IU]/L0.45-5.33Kettering HealthUrea nitrogen [Mass/volume] in Serum or PlasmaOrdered By: Roxane Bills on 93-21-3094Dpne nitrogen [Mass/Vol]21 mg/dLNormal-Kettering HealthComment on above:Performed By: #### CBC, CMP ####[address] [place] [address] USAPROTEIN ELECTRO, RANDOM URINEon 02-08-2025 ALBUMIN, URINE30.9 %.[facility] XitxkyleqoZQXUG-2-ZPZZUBAE, URINE2.8 %.[facility] CFKBR-4-OMZIGGAR, URINE11.3 %.[facility] HealthcareBETA GLOBULIN, URINE33.8 %.[facility] HealthcareGAMMA GLOBULIN, URINE21.1 %.[facility] HealthcareM-SPIKE %Not ObservedNot Observed %[facility]OM[facility] HealthcarePLEASE NOTE:Comment.NOMS HealthcareComment on above: Protein electrophoresis scan will follow via computer, mail, or water softener service supervisor delivery. Performed at: [address] [id number] [place]: Jhoan Rich PhD, Phone: [phone] Protein (U) [Mass/Vol]9.9 mg/dLNot Estab.[facility] HealthcareNOJohn J. Pershing VA [facility] Center24 hour urine albumin/total protein ratio by electrophoresisOrdered By: Roxane Bills on 77-68-4869Ynzjtwm Elph (24H U) [Mass fraction]30.9 %.[facility]24 hour urine gamma globulin/total protein ratio by electrophoresisOrdered By: Roxane Bills on 19-03-3114Hwoqc globulin Elph (24H U) [Mass fraction]21.1 %. [facility]24 hour urine protein monoclonal/total protein by electrophoresisOrdered By: Roxane Bills on 83-93-7005Orfnwpn.monoclonal Elph (24H U) [Mass fraction]Not observed %Not ObservedKettering HealthAlanine aminotransferase [Enzymatic activity/volume] in Serum or Plasmaon 96-82-6221LPF [Catalytic activity/Vol]33 U/LNormal7-52NOMS HealthcareComment on above:Performed By: #### CBC, CMP, LDH ####[place] [address] [place]#### SPE, UPE RAND, MITCH SERUM, KAPPA ####[facility] ,Albumin [Mass/volume] in Serum or Plasma by Bromocresol green (BCG) dye binding methoOrdered By: Roxane Bills on 02-06-2025 Albumin BCG dye [Mass/Vol]3.8 g/dL3.5-5.7FAshtabula General Hospital Alkaline phosphatase [Enzymatic activity/volume] in Serum or Plasmaon 02-06-2025 ALP [Catalytic activity/Vol]169 U/WXbhg10-797QKLS HealthcareComment on above: Performed By: #### CBC, CMP, LDH ####[place] [address] [place]#### SPE, UPE RAND, MITCH SERUM, KAPPA ####[facility] ,Aspartate aminotransferase [Enzymatic activity/volume] in Serum or Plasmaon 17-03-6591AFZ [Catalytic activity/Vol]24 U/VXfhops42-16JZVK Healthcare Comment on above:Performed By: #### CBC, CMP, LDH ####[place] [address] [place]#### SPE, UPE RAND, MITCH SERUM, KAPPA ####[facility] ,Basophils [#/volume] in Blood by Automated count Ordered By: Roxane Bills on 12-24-6916Jffzdgesj (Bld) [#/Vol]0.0 10*3/uLNormal 0.0-0.2FAshtabula General HospitalComment on above:Result Comment: PERFORMED BY:[address] [place], [place] [phone] MEDICAL DIRECTORELAINE CHAUDHARY M.D.Performed By: #### CBC, CMP, LDH ####[address]#### SPE, UPE RAND, MITCH SERUM, KAPPA ####[facility] , Basophils/100 leukocytes in Blood by Automated countOrdered By: Roxane Bills on 36-95-8966Cixrksnfb/100 WBC (Bld)0.2 %Normal.[facility] Comment on above:Performed By: #### CBC, CMP, LDH ####[address]#### SPE, UPE RAND, MITCH SERUM, KAPPA ####[facility] ,Bilirubin.total [Mass/volume] in Serum or Plasmaon 25-12-7991Cspjesndn [Mass/Vol]0.3 mg/dLNormal0.3-1.0NOMS HealthcareComment on above:Performed By: #### CBC, CMP, LDH ####[address]#### SPE, UPE RAND, MITCH SERUM, KAPPA ####[facility] ,CBC W Auto Differential panel (Bld)on 02-06-2025 Basophils (Bld) [#/Vol]0.0 10*3/uL0.0 - 0.2 10*3/uLNOMS HealthcareBasophils/100 WBC Manual cnt (Syn fld)0.2 %.[facility] HealthcareEosinophils (Bld) [#/Vol]0.0 10*3/uL0.0 - 0.45 10*3/uLNOMS HealthcareEosinophils/100 WBC Manual cnt (Syn fld) 0.2 %.[facility] HospitalErythrocyte distribution width (RBC) [Ratio]19.1 %High11.9 - 15.3 %[facility] HealthcareHematocrit (Bld) [Volume fraction]35.1 %34.0 - 46.4 %[facility] HospitalHemoglobin (Bld) [Mass/Vol]11.9 g/dL11.8 - 15.4 g/dLUINTAH BASIN MEDICAL [facility]ENTER Healthcare Lymphocytes (Bld) [#/Vol]2.3 10*3/uL1.00 - 4.8 10*3/uLNOMS Healthcare Lymphocytes/100 WBC Manual cnt (Syn fld)33.1 %.[facility] HospitalMCH (RBC) [Entitic mass]31.7 pg24.7 - 34.3 pgCarondelet HealthHC (RBC) [Mass/Vol]33.9 g/dL32.0 - 35.0 g/dLSac-Osage HospitalMCV (RBC) [Entitic vol]93.4 fL80 - 100 fLUINTAH BASIN [facility]ICAL [facility] Healthcare Monocytes (Bld) [#/Vol]0.8 10*3/uL0.0 - 0.8 10*3/uLNOWI Healthcare Monocytes+Macrophages/100 WBC Manual cnt (Syn fld)11.6 %.[facility] Neutrophils (Bld) [#/Vol]3.8 10*3/uL1.8 - 7.7 10*3/uLNOMS Healthcare Neutrophils/100 WBC Manual cnt (Syn fld)54.9 %.[facility] HealthcareNRBC0.1 /100{WBC}0 - 0.5 /100{WBC}[facility] HealthcarePlatelet mean volume (Bld) [Entitic vol]9.1 fL6.3 - 10.7 fLUINTAH BASIN MEDICAL [facility]ENTER HealthcarePlatelets (Bld) [#/Vol]110 10*3/kHAjx777 - 450 10*3/uL [facility] HospitalRBC LM.HPF (Urine sed) [#/Area]3.76 10*6/uL3.60 - 5.00 10*6/uL NOM HealthcareWBC (Bld) [#/Vol]7.0 10*3/uL3.8 - 11.6 10*3/uLNOMS HealthcareWBC LM.HPF (Urine sed) [#/Area]7.0 [CFU]/mL3.8 - 11.6 [CFU]/mLNOMS HealthcareCalcium [Mass/volume] in Serum or Plasmaon 78-55-0656Eskvvvb [Mass/Vol]8.3 mg/dLLow 8.6-10.3NOMS HealthcareComment on above:Performed By: #### CBC, CMP, LDH ####[address]#### SPE, UPE RAND, MITCH SERUM, KAPPA ####[facility] ,Carbon dioxide, total [Moles/volume] in Serum or Plasmaon 28-72-0434GD3 [Moles/Vol]30.0 mmol/LNormal 21.0-31.0NOMS HealthcareComment on above:Performed By: #### CBC, CMP, LDH ####[address]#### SPE, UPE RAND, MITCH SERUM, KAPPA ####[facility] ,Chloride [Moles/volume] in Serum or Plasmaon 62-01-1492Nxqklatg [Moles/Vol]99 mmol/L Rqjjkx63-702XRBL HealthcareComment on above:Performed By: #### CBC, CMP, LDH ####[address]#### SPE, UPE RAND, MITCH SERUM, KAPPA ####[facility] ,Complete Blood Count Auto Diffon 27-45-6230Nntz Corpuscular HGB Conc33.9 g/sBUgvqyj41.0-35.0The [facility] Physician GroupComment on above:Performed By: #### CBC, CMP, LDH ####[address]#### SPE, UPE RAND, MITCH SERUM, KAPPA ####[facility] ,NRBC%0.1 /100{WBC} Normal0-0.5The [facility] Physician GroupComment on above:Performed By: #### CBC, CMP, LDH ####[address]#### SPE, UPE RAND, MITCH SERUM, KAPPA ####[facility] ,White Blood Count7.0 [CFU]/mLNormal3.8-11.6The [facility] Physician GroupComment on above: Performed By: #### CBC, CMP, LDH ####[address]#### SPE, UPE RAND, MITCH SERUM, KAPPA ####[facility] ,Comprehensive Metabolic Panelon 17-64-4769Kuurszk [Mass/Vol]3.8 g/dLNormal3.5-5.7NOWI HealthcareComment on above:Performed By: #### CBC, CMP, LDH ####[address]#### SPE, UPE RAND, MITCH SERUM, KAPPA ####[facility] ,CREATININE CLR CALC JUTLJJJZ40.13NormalNOWI HealthcareComment on above:Performed By: #### CBC, CMP, LDH ####[address]#### SPE, UPE RAND, MITCH SERUM, KAPPA ####[facility] ,GFR/1.73 sq M.predicted MDRD (S/P/Bld) [Vol rate/Area]49.429 mL/min/{1.73_m2}NormalNOWI HealthcareComment on above:Performed By: #### CBC, CMP, LDH ####[place] [address] [place]#### SPE, UPE RAND, MITCH SERUM, KAPPA ####[facility] ,Comprehensive metabolic panelon 08-71-0522Uyumogtzfe (U) [Mass/Vol]1.21 mg/dLHigh0.60 - 1.20 mg/dLNOWI HealthcareCreatinine [Mass/volume] in Serum or PlasmaOrdered By: Roxane Bills on 06-08-1147Usspkubdlt [Mass/Vol]1.21 mg/dLHigh0.60-1.20Kettering HealthComment on above:Performed By: #### CBC, CMP, LDH ####[address]#### SPE, UPE RAND, MITCH SERUM, KAPPA ####[facility] ,Eosinophils [#/volume] in Blood by Automated countOrdered By: Roxane Bills on 40-00-5109Babkhpnzghj (Bld) [#/Vol]0.0 10*3/uL Normal0.0-0.45Kettering HealthComment on above:Performed By: #### CBC, CMP, LDH ####[address]#### SPE, UPE RAND, MITCH SERUM, KAPPA ####[facility] , Eosinophils/100 leukocytes in Blood by Automated countOrdered By: Roxane Bills on 31-68-6710Iggrhvoriwu/100 WBC (Bld)0.2 %Normal.[facility] Comment on above:Performed By: #### CBC, CMP, LDH ####[place] [address] [place]#### SPE, UPE RAND, MITCH SERUM, KAPPA ####[facility] ,Erythrocyte distribution width [Ratio] by Automated countOrdered By: Roxane Bills on 85-19-5313Wugtqkhuxtv distribution width (RBC) [Ratio]19.1 %High11.9-15.3FAshtabula General HospitalComment on above: Performed By: #### CBC, CMP, LDH ####[place] [address] [place]#### SPE, UPE RAND, MITCH SERUM, KAPPA ####[facility] ,Erythrocytes [#/volume] in Blood by Automated countOrdered By: Roxane Bills on 22-86-5835UDN (Bld) [#/Vol]3.76 10*6/uLNormal3.60-5.00K[facility]tering HealthComment on above:Performed By: #### CBC, CMP, LDH ####[address]#### SPE, UPE RAND, MITCH SERUM, KAPPA ####[facility] ,Free K+L LT Chains, Qn, Son 66-65-6748Bkhy Coolidge Light Chains, S36.1 mg/LNormal3.3-19.4The [facility] Physician GroupComment on above:Performed By: #### CBC, CMP, LDH ####[address]#### SPE, UPE RAND, MITCH SERUM, KAPPA ####[facility] ,Free Lambda Light Chains, S16.2 mg/L Normal5.7-26.3The [facility] Physician GroupComment on above:Performed By: #### CBC, CMP, LDH ####[address]#### SPE, UPE RAND, MITCH SERUM, KAPPA ####[facility] , Coolidge/Lambda Ratio, S2.38Ivuxsy3.26-1.65The [facility] Physician [facility] CenterComment on above:Result Comment: Performed at: - [facility] [id number] [place]: Jhoan Rich PhD, Phone: [phone] BY:[address] [phone] MEDICAL DIRECTORELAINE CHAUDHARY M.D.Performed By: #### CBC, CMP, LDH ####[place] [address] [place]#### SPE, UPE RAND, MITCH SERUM, KAPPA ####[facility] ,Glomerular filtration rate [Volume Rate/Area] in Serum, Plasma or Blood by CreatinineOrdered By: Roxane Bills on 20-35-2943Hppqzzilvc filtration rate [Volume Rate/Area] in Serum, Plasma or Blood by Ssdwcqekyx27.429 mL/MinKettering HealthGlucose [Mass/volume] in Serum or Plasmaon 02-06-2025 Glucose [Mass/Vol]485 mg/pNPnwb70-479JJXA HealthcareComment on above:Random Glucose Reference Range is [...] reference rangePerformed By: #### CBC, CMP, LDH ####[facility] [place] [address] [place]#### SPE, UPE RAND, MITCH SERUM, KAPPA ####[facility] ,Hematocrit [Volume Fraction] of Blood by Automated countOrdered By: Roxane Bills on 43-01-6454Oeyigtwcus (Bld) [Volume fraction]35.1 % Gfyftm35.0-46.4FAshtabula General HospitalComment on above:Performed By: #### CBC, CMP, LDH ####[address] [place] [address] [place]#### SPE, UPE RAND, MITCH SERUM, KAPPA ####[facility] , Hemoglobin [Mass/volume] in BloodOrdered By: Roxane Bills on 28-11-6194Cohpfswbgn (Bld) [Mass/Vol]11.9 g/qDMdvzjf81.8-15.4FAshtabula General HospitalComment on above:Performed By: #### CBC, CMP, LDH ####[place] [address] [place]#### SPE, UPE RAND, MITCH SERUM, KAPPA ####[facility] ,Immunofixation,Serumon 97-07-9633Fzxrxsufkygngf, Serum CommentCritically abnormal.The [facility] Physician GroupComment on above:Result Comment: 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 PLEASE NOTE: Samples from patients receiving DARZALEX(R) (daratumumab) or SARCLISA(R)(isatuximab-irfc) treatment can appear as an IgG kappa and mask a complete response (CR). If this patient is receiving these therapies, this MITCH assay interference can be removed by ordering test number 231307- Immunofixation, Daratumumab-Specific, Serum or 089824- Immunofixation, Isatuximab-Specific, Serum and submitting a new sample for testing or by calling the lab to add this test to the current sample.Performed By: #### CBC, CMP, LDH ####[address]#### SPE, UPE RAND, MITCH SERUM, KAPPA ####[facility] ,Immunoglobulin A, Sonde765 mg/kGWxeujg20-243Amz [facility] Physician GroupComment on above: Performed By: #### CBC, CMP, LDH ####[place] [address] [place]#### SPE, UPE RAND, MITCH SERUM, KAPPA ####[facility] ,Immunoglobulin G780 mg/gJEuaypj158-7549Esz [facility] Physician GroupComment on above:Performed By: #### CBC, CMP, LDH ####[address]#### SPE, UPE RAND, MITCH SERUM, KAPPA ####[facility] ,Immunoglobulin M, Serum33 mg/oGNyhiwo25-628Vmn [facility] Physician GroupComment on above:Result Comment: Performed at: - [facility] [id number] [place]: Jhoan Rich PhD, Phone: [phone] By: #### CBC, CMP, LDH ####[place] [address] [place]#### SPE, UPE RAND, MITCH SERUM, KAPPA ####[facility] ,LDH Lactate Dehydrogenaseon 48-43-5835RYQ LACTATE DIRQNJVBEFVZT972 U/SRkxkem018-446IBGD HealthcareComment on above:Result Comment: PERFORMED BY:[address] [place], [place] [phone] MEDICAL DIRECTORELAINE CHAUDHARY M.D.Performed By: #### CBC, CMP, LDH ####[address]#### SPE, UPE RAND, MITCH SERUM, KAPPA ####[facility] ,Lactate dehydrogenase [Enzymatic activity/volume] in Serum or Plasma by Lactate to pyOrdered By: Roxane Bills on 57-85-9382AKR Lactate to pyruvate reaction [Catalytic activity/Vol]197 U/I487-898UdpiyfygyKettering HealthLeukocytes [#/volume] corrected for nucleated erythrocytes in Blood by Automated counOrdered By: Roxane Bills on 47-43-3409WST corrected for nucl RBC Auto (Bld) [#/Vol]7.0 10*3/uL3.8-11.6FAshtabula General Hospital Leukocytes [#/volume] in Blood by Automated countOrdered By: Roxane Bills on 16-15-6872STX (Bld) [#/Vol]7.0 10*3/uLNormal3.8-11.6FAshtabula General HospitalComment on above:Performed By: #### CBC, CMP, LDH ####[place] [address] [place]#### SPE, UPE RAND, MITCH SERUM, KAPPA ####[facility] ,Lymphocytes [#/volume] in Blood by Automated countOrdered By: Roxane Bills on 29-43-4800Neoujtaoajy (Bld) [#/Vol]2.3 10*3/uL Normal1.00-4.8Kettering HealthComment on above:Performed By: #### CBC, CMP, LDH ####[place] [address] [place]#### SPE, UPE RAND, MITCH SERUM, KAPPA ####[facility] , Lymphocytes/100 leukocytes in Blood by Automated countOrdered By: Roxane Sanju on 78-71-9293Rdsruqlakzx/100 WBC (Bld)33.1 %Normal.Kettering HealthComment on above:Performed By: #### CBC, CMP, LDH ####[place] [address]#### SPE, UPE RAND, MITCH SERUM, KAPPA ####[facility] ,MCH [Entitic mass] by Automated countOrdered By: Roxane Sanju on 34-02-9191KHC (RBC) [Entitic mass]31.7 baQcurak87.7-34.3 Ket[facility] HealthComment on above:Performed By: #### CBC, CMP, LDH ####[address]#### SPE, UPE RAND, MITCH SERUM, KAPPA ####[facility] ,MCHC Auto (RBC) [Mass/Vol]Ordered By: Roxane Bills on 54-34-7178BIRF (RBC) [Mass/Vol]33.9 g/dL32.0-35.0K[facility]tering HealthMCV [Entitic volume] by Automated countOrdered By: Roxane Blils on 10-92-4391FDP (RBC) [Entitic vol]93.4 fLNormal 80-100K[facility]tering HealthComment on above:Performed By: #### CBC, CMP, LDH ####[address]#### SPE, UPE RAND, MITCH SERUM, KAPPA ####[facility] ,Monocytes [#/volume] in Blood by Automated countOrdered By: Roxane Bills on 02-06-2025 Monocytes (Bld) [#/Vol]0.8 10*3/uLNormal0.0-0.8[facility] Comment on above:Performed By: #### CBC, CMP, LDH ####[place] [address] [place]#### SPE, UPE RAND, MITCH SERUM, KAPPA ####[facility] ,Monocytes/100 leukocytes in Blood by Automated count Ordered By: Roxane Bills on 94-37-4819Pxuwtcamo/100 WBC (Bld)11.6 %Normal.Kettering HealthComment on above:Performed By: #### CBC, CMP, LDH ####[place] [address] [place]#### SPE, UPE RAND, MITCH SERUM, KAPPA ####[facility] ,Neutrophils [#/volume] in Blood by Automated countOrdered By: Roxane Bills on 94-01-9542Uudussdpdzo (Bld) [#/Vol]3.8 10*3/uLNormal1.8-7.7FAshtabula General HospitalComment on above:Performed By: #### CBC, CMP, LDH ####[place] [address] [place]#### SPE, UPE RAND, MITCH SERUM, KAPPA ####[facility] ,Neutrophils/100 leukocytes in Blood by Automated count Ordered By: Roxane Bills on 31-37-4832Svmywiugkzk/100 WBC (Bld)54.9 %Normal. Kettering HealthComment on above:Performed By: #### CBC, CMP, LDH ####[place] [address] [place]#### SPE, UPE RAND, MITCH SERUM, KAPPA ####[facility] ,No Panel Informationon 61-45-7327Xzvxxkxcmiwdeq and review of laboratory resultsAbnormal [facility] Panel InformationOrdered By: Roxane Bills on .13K[facility]tering HealthComment: g/dLNot Observed [facility] HealthComment.[facility] Nucleated erythrocytes [Presence] in Blood by Automated countOrdered By: Roxane Bills on 24-52-1241Ovualdmso RBC Auto Ql (Bld)0.1 /100{WBC}0-0.5FAshtabula General HospitalPlatelet mean volume [Entitic volume] in Blood by Automated countOrdered By: Roxane Bills on 22-51-6698Stfguglb mean volume (Bld) [Entitic vol]9.1 fLNormal6.3-10.7FAshtabula General HospitalComment on above:Performed By: #### CBC, CMP, LDH ####[address]#### SPE, UPE RAND, MITCH SERUM, KAPPA ####[facility] ,Platelets [#/volume] in Blood by Automated count Ordered By: Roxane Bills on 08-10-5579Wnvcqipey (Bld) [#/Vol]110 10*3/mWPud816-166 [facility] HealthComment on above:Performed By: #### CBC, CMP, LDH ####[address]#### SPE, UPE RAND, MITCH SERUM, KAPPA ####[facility] ,Potassium [Moles/volume] in Serum or Plasmaon 05-57-2944Xhkwhxmlj [Moles/Vol]4.0 mmol/L Normal3.5-5.1NOMS HealthcareComment on above:Performed By: #### CBC, CMP, LDH ####[address]#### SPE, UPE RAND, MITCH SERUM, KAPPA ####[facility] ,Protein Electro, Random Urineon 58-53-3195Zdzxvah, Urine30.9 %Normal.The [facility] Physician GroupComment on above:Performed By: #### CBC, CMP, LDH ####[place] [address] [place]#### SPE, UPE RAND, MITCH SERUM, KAPPA ####[facility] ,Zvqty-9-Qgoxlwxf, Urine2.8 %Normal.The [facility] Physician GroupComment on above:Performed By: #### CBC, CMP, LDH ####[place] [id number] [place]#### SPE, UPE RAND, MITCH SERUM, KAPPA ####[facility] ,Emkmj-1-Otbmcpgq, Urine11.3 %Normal.The [facility] Physician GroupComment on above:Performed By: #### CBC, CMP, LDH ####[place] [id number] [place]#### SPE, UPE RAND, MITCH SERUM, KAPPA ####[facility] ,Beta Globulin, Urine33.8 %Normal.The [facility] Physician GroupComment on above: Performed By: #### CBC, CMP, LDH ####[address]#### SPE, UPE RAND, MITCH SERUM, KAPPA ####[facility] ,Gamma Globulin, Urine21.1 %Normal.The [facility] Comment on above:Performed By: #### CBC, CMP, LDH ####[place] [address] [place]#### SPE, UPE RAND, MITCH SERUM, KAPPA ####[facility] ,M-Daimen %Not ObservedNormalNot ObservedThe [facility] Physician GroupComment on above:Performed By: #### CBC, CMP, LDH ####[place] [address] [place]#### SPE, UPE RAND, MITCH SERUM, KAPPA ####[facility] ,Please Note:CommentNormal.The [facility] Physician GroupComment on above:Result Comment: Protein electrophoresis scan will follow via computer, mail, or water softener service supervisor delivery. Pe rformed at: [facility] [id number] [place]: Jhoan Rich PhD, Phone: [phone] BY:[address]JoseVI[place], [place] [phone] MEDICAL DIRECTORELAINE CHAUDHARY M.D.Performed By: #### CBC, CMP, LDH ####[address]#### SPE, UPE RAND, MITCH SERUM, KAPPA ####[facility] ,Protein Electrophoresis, Serumon 55-55-6902Todzi-1-Globulin0.2 g/dLNormal0.0-0.4The [facility] Physician GroupComment on above:Performed By: #### CBC, CMP, LDH ####[address]#### SPE, UPE RAND, MITCH SERUM, KAPPA ####[facility] ,Rkbvz-2-Krrktukb0.9 g/dLNormal0.4-1.0The [facility] Physician GroupComment on above:Performed By: #### CBC, CMP, LDH ####[address]#### SPE, UPE RAND, MITCH SERUM, KAPPA ####[facility] ,Beta Globulin1.1 g/dLNormal0.7-1.3The [facility] Physician GroupComment on above: Performed By: #### CBC, CMP, LDH ####[address]#### SPE, UPE RAND, MITCH SERUM, KAPPA ####[facility] ,Gamma Globulin0.7 g/dLNormal0.4-1.8The [facility] Comment on above:Performed By: #### CBC, CMP, LDH ####[address]#### SPE, UPE RAND, MITCH SERUM, KAPPA ####[facility] ,M-SpikeComment:NormalNot ObservedThe [facility] Physician GroupComment on above:Result Comment: SPE shows asymmetrical gamma. Suggest serum MITCH and free light chain analysis for further evaluation.Performed By: #### CBC, CMP, LDH ####[place] [address]#### SPE, UPE RAND, MITCH SERUM, KAPPA ####[facility] ,SPE-NoteCommentNormal.The [facility] Physician GroupComment on above:Result Comment: Protein electrophoresis scan will follow via computer, mail, or water softener service supervisor delivery. Performed at: [address] [id number] [place]: Jhoan Rich PhD, Phone: [phone] Performed By: #### CBC, CMP, LDH ####[address]#### SPE, UPE RAND, MITCH SERUM, KAPPA ####[facility] ,Protein [Mass/volume] in Serum or Plasmaon 63-70-4798Rxlaead [Mass/Vol]6.2 g/dLLow6.4-8.9Sac-Osage HospitalComment on above:Performed By: #### CBC, CMP, LDH ####[address]#### SPE, UPE RAND, MITCH SERUM, KAPPA ####[facility] ,Serum free kappa light chain measurementOrdered By: Roxane Bills on 02-06-2025 Immunoglobulin light chains.kappa.free (S) [Mass/Vol]36.1 mg/LHigh3.3-19.4 [facility] Hospitalerum globulin measurement (mass/volume)Ordered By: Roxane Bills on 14-06-0487Jkopscyl (S) [Mass/Vol]2.9 g/dLNormal2.2-3.9 [facility] HealthComment on above:Performed By: #### CBC, CMP, LDH ####[address]#### SPE, UPE RAND, MITCH SERUM, KAPPA ####[facility] ,Serum globulin measurement by calculation (mass/volume)on 35-77-0733Acaykfxu (S) [Mass/Vol]2.4 g/dLNormalNOWI HealthcareComment on above:Performed By: #### CBC, CMP, LDH ####[address]#### SPE, UPE RAND, MITCH SERUM, KAPPA ####[facility] ,Serum immunoglobulin free kappa light chains/immunoglobulin free lambda light chainsOrdered By: Roxnae Bills on [id number] light chains.kappa.free/Immunoglobulin light chains.lambda.free (S) [Mass ratio]2.12Qcro4.26-1.65Grant Hospitalerum or plasma IgA measurement (mass/volume)Ordered By: Roxane Bills on 55-88-1918IzV [Mass/Vol]212 mg/lG14-616SsimcrsxuGrant Hospitalerum or plasma IgG measurement (mass/volume)Ordered By: Roxane Bills on 95-41-7332JyA [Mass/Vol]780 mg/dN074-9450PjgysvtoyGrant Hospitalerum or plasma IgM measurement (mass/volume)Ordered By: Roxane Bills on 24-49-0812DyZ [Mass/Vol]33 mg/eA47-801HxrgoevutGrant Hospitalerum or plasma albumin measurement (mass/volume)Ordered By: Roxane Bills on 32-58-3290Phfyxmq [Mass/Vol]3.1 g/dLNormal 2.9-4.4FAshtabula General HospitalComment on above:Performed By: #### CBC, CMP, LDH ####[address]#### SPE, UPE RAND, MITCH SERUM, KAPPA ####[facility] ,Serum or plasma albumin/globulin mass ratioon 60-83-5335Vicatgk/Globulin [Mass ratio]1.6 {ratio}NormalUINTAH BASIN MEDICAL [facility]ENTER HealthcareComment on above:Performed By: #### CBC, CMP, LDH ####[address]#### SPE, UPE RAND, MITCH SERUM, KAPPA ####[facility] ,Serum or plasma albumin/globulin mass ratioOrdered By: Roxane Bills on 06-42-0892Flcyqao/Globulin [Mass ratio]1.1 {ratio}Normal0.7-1.7FAshtabula General HospitalComment on above:Performed By: #### CBC, CMP, LDH ####[facility]#### SPE, NOAH RAND, MITCH SERUM, KAPPA ####[facility] ,Serum or plasma alpha 1 globulin measurement by electrophoresis (mass/volume)Ordered By: Roxane Bills on 23-32-3733Nhhhh 1 globulin Elph [Mass/Vol]0.2 g/dL0.0-0.4FPomerene Hospitalerum or plasma alpha 2 globulin measurement by electrophoresis (mass/volume)Ordered By: Roxane Sanju on 23-44-5520Wvebc 2 globulin Elph [Mass/Vol]0.9 g/dL0.4-1.0Grant Hospitalerum or plasma anion gap determinationon 52-46-1036Iixcp gap [Moles/Vol]13.0 mmol/LNormal6.0-15.0NOMS HealthcareComment on above: Performed By: #### CBC, CMP, LDH ####[facility]#### DERRICK, NOAH RAND, MITCH SERUM, KAPPA ####[facility] ,Serum or plasma beta globulin measurement by electrophoresis (mass/volume)Ordered By: Roxane Bills on 87-55-1459Ricw globulin Elph [Mass/Vol]1.1 g/dL0.7-1.3FPomerene Hospitalerum or plasma gamma globulin measurement by electrophoresis (mass/volume)Ordered By: Roxane Bills on 02-06-2025 Gamma globulin Elph [Mass/Vol]0.7 g/dL0.4-1.8[facility] Serum or plasma immunoglobulin free lambda light chains measurement (mass/volume)Ordered By: Roxane Bills on 90-99-9581Fdmlesvcnqukdo light chains.lambda.free [Mass/Vol]16.2 mg/L5.7-.3FAshtabula General Hospital Serum total protein measurementOrdered By: Roxane Bills on 58-10-2051Fvxnyud [Mass/Vol]6.0 g/dLNormal6.0-8.5FAshtabula General HospitalComment on above:Performed By: #### CBC, CMP, LDH ####[facility]#### SPE, UPE RAND, MITCH SERUM, KAPPA ####[facility] ,Sodium [Moles/volume] in Serum or Plasmaon 02-06-2025 Sodium [Moles/Vol]138 mmol/ZBjeheq177-244ZBJB HealthcareComment on above: Performed By: #### CBC, CMP, LDH ####[place] [id number]#### SPE, UPE RAND, MITCH SERUM, KAPPA ####[facility] ,Urea nitrogen [Mass/volume] in Serum or Plasmaon 19-37-3502Wgtq nitrogen [Mass/Vol]18 mg/dLNormal7-25NOMS HealthcareComment on above:Performed By: #### CBC, CMP, LDH ####[place] [address] [place] [address] [place]#### SPE, UPE RAND, MITCH SERUM, KAPPA ####[facility] ,Urine alpha 1 globulin/total protein by electrophoresisOrdered By: Roxane Bills on 39-53-4118Byzjs 1 globulin Elph (U) [Mass fraction]2.8 %.[facility] HealthUrine alpha 2 globulin/total protein ratio by electrophoresisOrdered By: Roxane Bills on 30-61-1204Flcrx 2 globulin Elph (U) [Mass fraction]11.3 %.[facility]tering HealthUrine beta globulin measurement by electrophoresis (mass/volume)Ordered By: Roxane Bills on 02-06-2025 Beta globulin Elph (U) [Mass/Vol]33.8 %.[facility] HealthUrine protein measurement (mass/volume)Ordered By: Roxane Bills on 03-02-6388Jxxxkoo (U) [Mass/Vol]9.9 mg/dLNormalNot Estab.Kettering HealthComment on above:Performed By: #### CBC, CMP, LDH ####[place] [address] [facility]#### SPE, UPE RAND, MITCH SERUM, KAPPA ####[facility] ,Anisocytosis [Presence] in Blood by Light microscopy Ordered By: Rxoane Bills on 10-52-9237Hbkovtqfhvxm Ql (Bld)MarkedNormalKettering HealthComment on above:Performed By: #### SCAN CBC, CMP ####[place] [id number] [facility] Comprehensive Metabolic Panelon 90-82-8943Jevqpag [Mass/Vol]3.4 g/dLLow3.5-5.7 The [facility] Physician GroupComment on above:Performed By: #### SCAN CBC, CMP ####[address] Albumin/Globulin [Mass ratio]1.4 {ratio}NormalThe [facility] Comment on above:Performed By: #### SCAN CBC, CMP ####[place] [address] USAALP [Catalytic activity/Vol]168 U/L Bcvi07-021Anb [facility] Physician GroupComment on above:Performed By: #### SCAN CBC, CMP ####[place] [address] USAALT [Catalytic activity/Vol]46 U/LNormal7-52The [facility] Comment on above:Performed By: #### SCAN CBC, CMP ####[address] [address] USAAnion gap [Moles/Vol]11.2 mmol/LNormal 6.0-15.0The [facility] Physician GroupComment on above:Performed By: #### SCAN CBC, CMP ####[place] [address] USAAST [Catalytic activity/Vol]38 U/RVvdwsg43-85Hwj [facility] Comment on above:Performed By: #### SCAN CBC, CMP ####[address] [address] USABilirubin [Mass/Vol]0.4 mg/dLNormal 0.3-1.0The [facility] Physician GroupComment on above:Performed By: #### SCAN CBC, CMP ####[place] [address] USACalcium [Mass/Vol]8.3 mg/dLLow8.6-10.3The [facility] Physician GroupComment on above:Performed By: #### SCAN CBC, CMP ####[place] [address] USAChloride [Moles/Vol]102 mmol/EGtvtpb91-700Gqo [facility] Physician GroupComment on above:Performed By: #### SCAN CBC, CMP ####[place] [address] USACO2 [Moles/Vol]30.3 mmol/LOlyiri27.0-31.0The [facility] Physician GroupComment on above:Performed By: #### SCAN CBC, CMP ####[place] [address] USACreatinine [Mass/Vol]1.33 mg/dLHigh0.60-1.20 The [facility] Physician GroupComment on above:Performed By: #### SCAN CBC, CMP ####[place] [address] [place] Creatinine Clr Calc Cbyycxcu98.53NormalThe [facility] Physician GroupComment on above:Result Comment: PERFORMED BY:[address] [place], [place] [phone] MEDICAL LEESA CHAUDHARY M.D.Performed By: #### SCAN CBC, CMP ####[place] [address] USAGFR/1.73 sq M.predicted MDRD (S/P/Bld) [Vol rate/Area]44.127 mL/min/{1.73_m2}NormalThe [facility] Physician GroupComment on above:Performed By: #### SCAN CBC, CMP ####[address] [address] USAGlobulin (S) [Mass/Vol]2.5 g/dLNormalThSt. Luke's [facility] Physician GroupComment on above:Performed By: #### SCAN CBC, CMP ####[address] [address] USAGlucose [Mass/Vol]377 mg/mSKens43-207Klh [facility] Physician GroupComment on above: Result Comment: Random Glucose Reference Range is dependent on time and content of last meal. Glucose of more than 200 mg/dL in a nonstressed, ambulatory subject supports the diagnosis of Diabetes Mellitus. ADA recommended reference rangePerformed By: #### SCAN CBC, CMP ####[address] [address] USAPotassium [Moles/Vol]3.5 mmol/LNormal3.5-5.1 The [facility] Physician GroupComment on above:Performed By: #### SCAN CBC, CMP ####[address] [address] USAProtein [Mass/Vol]5.9 g/dLLow6.4-8.9The [facility] Physician GroupComment on above: Performed By: #### SCAN CBC, CMP ####[address] [address] USASodium [Moles/Vol]140 mmol/DWodnde284-713Eaa [facility] Physician GroupComment on above:Performed By: #### SCAN CBC, CMP ####[address] [address] USAUrea nitrogen [Mass/Vol]32 mg/dLHigh7-25The [facility] Physician GroupComment on above:Performed By: #### SCAN CBC, CMP ####[address] [address] USAComprehensive metabolic panelon 01-17-2025 Albumin [Mass/Vol]3.4 g/dLLow3.5 [...] mg/dLHigh0.60 - 1.20 mg/dLNOMS HealthcareCREATININE CLR CALC PBTHNCIH80.53 NOM HealthcareGFR/1.73 sq M.predicted MDRD (S/P/Bld) [Vol rate/Area]44.127 mL/min/{1.73_m2}[facility] HealthcareGlobulin (S) [Mass/Vol]2.5 g/dLNOWI Healthcare Glucose [Mass/Vol]377 mg/pYRvdr49 - 100 mg/dLNOWI HealthcareComment on above: Random Glucose Reference Range [...] HealthcareUrea nitrogen [Mass/Vol]32 mg/dLHigh7 - 25 mg/dLNOMS HealthcareNOMS HealthcareDacrocytes [Presence] in Blood by Light microscopyOrdered By: Roxane Bills on 42-16-4897Muvwomxiph LM Ql (Bld)[facility] Erythrocyte morphology finding [Identifier] in BloodOrdered By: Roxane Bills on 50-64-2999YRM morphology finding Nom (Bld)N/[facility] Free K+L LT Chains, Qn, Son 63-58-2060Fpgv Coolidge Light Chains, S32.7 mg/LNormal 3.3-19.4The [facility] Physician GroupComment on above:Performed By: #### IMM WILLIAM, SPE, KAPPA ####[facility] ,Free Lambda Light Chains, S17.0 mg/L Normal5.7-26.3The [facility] Physician GroupComment on above:Performed By: #### IMM WILLIAM, SPE, KAPPA ####[facility] ,Coolidge/Lambda Ratio, S1.92Normal 0.26-1.65The [facility] Physician GroupComment on above:Result Comment: Performed at: [facility] [address] [id number] [place] D[place]: Jhoan Rich PhD, Phone: [phone] BY:[place] [address] [place], [place] [phone] MEDICAL DIRECTORELAINE CHAUDHARY M.D.Performed By: #### IMM WILLIAM, SPE, KAPPA ####[facility] ,Immunoglobulins A/G/M, Qn, Seron 95-57-9707Efboahzpckwitr A, Serum 169 mg/eAHougxv39-699Via [facility] Physician GroupComment on above:Performed By: #### IMM WILLIAM, SPE, KAPPA ####[facility] ,Immunoglobulin G1184 mg/dL Kxhvrp639-4244Jjt [facility] Physician GroupComment on above:Performed By: #### IMM WILLIAM, SPE, KAPPA ####[facility] ,Immunoglobulin M, Serum37 mg/dL Kpsrro64-392Pzo [facility]ville State HospitalComment on above:Result Comment: Performed at: [facility] [address] [id number] [place]: Jhona Rich PhD, Phone: [phone] By: #### IMM WILLIAM, SPE, KAPPA ####[facility] ,Ovalocytes [Presence] in Blood by Light microscopyOrdered By: Roxane Bills on 84-15-3625Ozximwwgcx LM Ql (Bld)[facility] CampusPlatelet adequacy [Presence] in Blood by Light microscopyOrdered By: Roxane Bills on 67-84-9639Maxdbtqcu LM Ql (Bld)Decreased NormalKettering HealthPlatelet morphology finding [Identifier] in BloodOrdered By: Roxane Bills on 29-69-8473Mpwonfzf morphology finding Nom (Bld) NormalNormalKettering HealthPoikilocytosis [Presence] in Blood by Light microscopyOrdered By: Roxane Bills on 39-08-1033Vlhwauvsepkwas LM Ql (Bld) ModerateKettering HealthPolychromasia [Presence] in Blood by Light microscopyOrdered By: Roxane Bills on 41-01-8079Vrtvotmxzrfum LM Ql (Bld) [facility] Medical CenterProtein Electrophoresis, Serumon 28-30-3068Szrxtgn [Mass/Vol]3.0 g/dLNormal2.9-4.4The [facility] Comment on above:Performed By: #### IMM WILLIAM, SPE, KAPPA ####[facility] ,Albumin/Globulin [Mass ratio]1.1 {ratio}Normal0.7-1.7The [facility] Physician GroupComment on above:Performed By: #### IMM WILLIAM, SPE, KAPPA ####[facility] ,Opgze-8-Beqerapv6.2 g/dLNormal0.0-0.4The [facility] Physician GroupComment on above:Performed By: #### IMM WILLIAM, SPE, KAPPA ####[facility] ,Ccfzm-8-Woucinhy3.7 g/dLNormal0.4-1.0The [facility] Physician GroupComment on above:Performed By: #### IMM WILLIAM, SPE, KAPPA ####[facility] ,Beta Globulin0.8 g/dLNormal0.7-1.3The [facility] Physician GroupComment on above:Performed By: #### IMM WILLIAM, SPE, KAPPA ####[facility] ,Gamma Globulin1.0 g/dLNormal0.4-1.8The [facility] Physician GroupComment on above:Performed By: #### IMM WILLIAM, SPE, KAPPA ####[facility] ,Globulin (S) [Mass/Vol]2.8 g/dLNormal2.2-3.9The [facility] Physician GroupComment on above:Performed By: #### IMM WILLIAM, SPE, KAPPA ####[facility] ,M-SpikeComment:NormalNot ObservedThe [facility] Physician GroupComment on above:Result Comment: SPE shows asymmetrical gamma. Suggest serum MITCH and free light chain analysis for further evaluation.Performed By: #### IMM WILLIAM, SPE, KAPPA ####[facility] ,Protein [Mass/Vol]5.8 g/dLNormal6.0-8.5The [facility] Physician GroupComment on above:Performed By: #### IMM WILLIAM, SPE, KAPPA ####[facility] ,SPE-NoteCommentNormal.The [facility] Physician GroupComment on above:Result Comment: Protein electrophoresis scan will follow via computer, mail, or water softener service supervisor delivery. Pe rformed at: [place] [id number] [place]: Jhoan Rich PhD, Phone: [phone] By: #### IMM WILLIAM, SPE, KAPPA ####[facility] ,Scan and CBCon 87-79-8843Mcldreykt (Bld) [#/Vol]0.0 10*3/uLNormal0.0-0.2The [facility] Physician GroupComment on above: Performed By: #### SCAN CBC, CMP ####[facility] [address] [place] [id number] USABasophils/100 WBC (Bld)0.0 %Normal.The [facility] Physician GroupComment on above:Performed By: #### SCAN CBC, CMP ####[place] [address] USAEosinophils (Bld) [#/Vol]0.0 10*3/uLNormal0.0-0.45The [facility] Physician GroupComment on above: Performed By: #### SCAN CBC, CMP ####[place] [address] USAEosinophils/100 WBC (Bld)0.9 %Normal.The [facility] Physician GroupComment on above:Performed By: #### SCAN CBC, CMP ####[place] [address] USAErythrocyte distribution width (RBC) [Ratio]23.3 %High11.9-15.3The [facility] Comment on above:Performed By: #### SCAN CBC, CMP ####[place] [address] USAHematocrit (Bld) [Volume fraction] 28.8 %Low34.0-46.4The [facility] Physician GroupComment on above:Performed By: #### SCAN CBC, CMP ####[place] [address] USAHemoglobin (Bld) [Mass/Vol]9.6 g/dLLow11.8-15.4The [facility] Physician GroupComment on above:Performed By: #### SCAN CBC, CMP ####[place] [address] USALymphocytes (Bld) [#/Vol]2.0 10*3/uLNormal1.00-4.8The [facility] Physician GroupComment on above: Performed By: #### SCAN CBC, CMP ####[place] [address] USALymphocytes/100 WBC (Bld)57.0 %Normal.The [facility] Physician GroupComment on above:Performed By: #### SCAN CBC, CMP ####[place] [address] USAMCH (RBC) [Entitic mass]31.0 yiYrfyao00.7-34.3The [facility] Physician GroupComment on above: Performed By: #### SCAN CBC, CMP ####[address] (RBC) [Entitic vol]92.8 lOBapnfc51-739Opk [facility] Physician GroupComment on above:Performed By: #### SCAN CBC, CMP ####[place] [address] USAMean Corpuscular HGB Conc33.4 g/cGHihgjx46.0-35.0The [facility] Physician GroupComment on above:Performed By: #### SCAN CBC, CMP ####[place] [address] USAMonocytes (Bld) [#/Vol]0.3 10*3/uLNormal 0.0-0.8The [facility] Physician GroupComment on above:Performed By: #### SCAN CBC, CMP ####[place] [address] USAMonocytes/100 WBC (Bld)9.0 %Normal.The [facility] Physician GroupComment on above:Performed By: #### SCAN CBC, CMP ####[place] [address] USANeutrophils (Bld) [#/Vol]1.1 10*3/uLLow1.8-7.7 The [facility] Physician GroupComment on above:Performed By: #### SCAN CBC, CMP ####[place] [address] [place] Neutrophils/100 WBC (Bld)33.1 %Normal.The [facility] Physician GroupComment on above:Performed By: #### SCAN CBC, CMP ####[place] [address] USANRBC%0.1 /100{WBC}Normal0-0.5The [facility] Physician GroupComment on above:Performed By: #### SCAN CBC, CMP ####[address] [address] USAOvalocytesSlight NormalGulf Breeze Hospital Physician GroupComment on above:Performed By: #### SCAN CBC, CMP ####[address] [address] [place] Platelet EstimateDecreasedNormalAdventHealth Heart of Florida Physician GroupComment on above:Performed By: #### SCAN CBC, CMP ####[address] [address] USAPlatelet mean volume (Bld) [Entitic vol]8.7 fL Normal6.3-10.7The [facility] Physician GroupComment on above:Performed By: #### SCAN CBC, CMP ####[address] [address] USAPlatelet MorphologyNormalNormtxNoBlowing Rock Hospital Physician Group Comment on above:Result Comment: PERFORMED BY:[address] [place], [place] [phone] MEDICAL DIRECTORELAINE CHAUDHARY M.D.Performed By: #### SCAN CBC, CMP ####[address] [address] USAPlatelets (Bld) [#/Vol]58 10*3/dWVcc834-585Dqi [facility] Physician GroupComment on above: Performed By: #### SCAN CBC, CMP ####[address] [address] USAPoikilocytosisModerateNormHCA Florida Oak [facility] Hospital Physician GroupComment on above:Performed By: #### SCAN CBC, CMP ####[address] [address] USAPolychromasiaSlightAdventHealth Heart of Florida Physician GroupComment on above:Performed By: #### SCAN CBC, CMP ####[address] [address] USARBC (Bld) [#/Vol]3.10 10*6/uLLow3.60-5.00The [facility] Physician GroupComment on above:Performed By: #### SCAN CBC, CMP ####[facility] [place] [address] USATear Drop CellsSlightNormalThe [facility] Physician GroupComment on above:Performed By: #### SCAN CBC, CMP ####[address] [address] USAWBC (Bld) [#/Vol]3.4 10*3/uLLow3.8-11.6The [facility] Physician GroupComment on above:Performed By: #### SCAN CBC, CMP ####[address] [address] USAWhite Blood Count3.4 [CFU]/mLLow3.8-11.6The [facility] Physician GroupComment on above:Performed By: #### SCAN CBC, CMP ####[address] [address] USASerum or plasma IgA measurement (mass/volume)Ordered By: Sugey Cummins on 09-65-2881YeA [Mass/Vol] 169 mg/hE74-871CmmyogcpbGrant Hospitalerum or plasma IgG measurement (mass/volume)Ordered By: Sugey Cummins on 10-37-1008ZsD [Mass/Vol]1184 mg/dL 586-1602Grant Hospitalerum or plasma IgM measurement (mass/volume)Ordered By: Sugey Cummins on 66-97-5083YdZ [Mass/Vol]37 mg/dL 26-217K[facility]tering HealthBasic Metabolic Panelon 45-27-4551Uqtbe gap [Moles/Vol]8.1 mmol/LNormal6.0-15.0The [facility] Physician GroupComment on above:Performed By: #### DIFF CBC, BMP ####[address] [address] USACalcium [Mass/Vol]6.9 mg/dLLow8.6-10.3The [facility] Physician GroupComment on above:Performed By: #### DIFF CBC, BMP ####[place] [address] [place] Chloride [Moles/Vol]105 mmol/WNvwhvn36-668Fju [facility] Physician GroupComment on above:Performed By: #### DIFF CBC, BMP ####[place] [address] [place] [address] USACO2 [Moles/Vol]31.1 mmol/LHigh21.0-31.0The [facility] Physician GroupComment on above:Performed By: #### DIFF CBC, BMP ####[address] [address] [place] Creatinine [Mass/Vol]0.86 mg/dLNormal0.60-1.20The [facility] Comment on above:Performed By: #### DIFF CBC, BMP ####[place] [address] [place] [address] USACreatinine Clr Calc Bmdlkqvp20.74 NormalThe [facility] Physician GroupComment on above:Result Comment: PERFORMED BY:[address] [place], [place] [phone] MEDICAL DIRECTORELAINE CHAUDHARY M.D.Performed By: #### DIFF CBC, BMP ####[address] [address] USAGFR/1.73 sq M.predicted MDRD (S/P/Bld) [Vol rate/Area]mL/min/{1.73_m2}Normal The [facility] Physician GroupComment on above:Performed By: #### DIFF CBC, BMP ####[address] [address] USAGlucose [Mass/Vol]136 mg/sOYchi81-259Uiw [facility] Physician GroupComment on above: Result Comment: Random Glucose Reference Range is dependent on time and content of last meal. Glucose of more than 200 mg/dL in a nonstressed, ambulatory subject supports the diagnosis of Diabetes Mellitus. ADA recommended reference rangePerformed By: #### DIFF CBC, BMP ####[facility] [place] [address] USAPotassium [Moles/Vol]3.2 mmol/LLow3.5-5.1The [facility] Physician GroupComment on above:Performed By: #### DIFF CBC, BMP ####[address] [address] USASodium [Moles/Vol]141 mmol/AIjalrp857-617Wmx [facility] Physician GroupComment on above: Performed By: #### DIFF CBC, BMP ####[address] [address] USAUrea nitrogen [Mass/Vol]21 mg/dLNormal7-25The [facility] Physician GroupComment on above:Performed By: #### DIFF CBC, BMP ####[address] [address] USADiff and CBCon 82-66-0531Wmapctlylsdg Ql (Bld)ModerateNormalThe [facility] Physician GroupComment on above:Performed By: #### DIFF CBC, BMP ####[address] [address] USAEosinophils/100 WBC (Bld)4 % High1-3The [facility] Physician GroupComment on above:Performed By: #### DIFF CBC, BMP ####[address] [address] USAErythrocyte distribution width (RBC) [Ratio]15.5 %High11.9-15.3The [facility] Physician GroupComment on above:Performed By: #### DIFF CBC, BMP ####[address] [address] USAGiant Platelet Tally2 /100{WBC}NormalThe [facility] Physician GroupComment on above:Performed By: #### DIFF CBC, BMP ####[address] [address] USAHematocrit (Bld) [Volume fraction]26.7 %Low34.0-46.4The [facility] Physician GroupComment on above:Performed By: #### DIFF CBC, BMP ####[address] [address] USAHemoglobin (Bld) [Mass/Vol]9.1 g/dLLow11.8-15.4The [facility] Physician GroupComment on above: Performed By: #### DIFF CBC, BMP ####[address] [address] USALymphocytes/100 WBC (Bld)56 %Dril69-12Wsc [facility] Physician GroupComment on above:Performed By: #### DIFF CBC, BMP ####[address] [address] [facility]H (RBC) [Entitic mass]29.3 ltOblksg33.7-34.3The [facility] Physician GroupComment on above: Performed By: #### DIFF CBC, BMP ####[address] [address] [facility]V (RBC) [Entitic vol]86.2 mEArpbws92-907Wna [facility] Physician GroupComment on above:Performed By: #### DIFF CBC, BMP ####[address] [address] USAMean Corpuscular HGB Conc34.0 g/dUXinkxv90.0-35.0The [facility] Physician GroupComment on above:Performed By: #### DIFF CBC, BMP ####[address] [address] USAMicrocytosisModerateNoBlowing Rock Hospital Physician GroupComment on above:Performed By: #### DIFF CBC, BMP ####[address] [address] USAMonocytes/100 WBC (Bld)10 %Normal2-11The [facility] Physician GroupComment on above:Performed By: #### DIFF CBC, BMP ####[address] [address] USANucleated Red Blood Cell2 /100{WBC}High0-0The [facility] Physician GroupComment on above:Performed By: #### DIFF CBC, BMP ####[address] [address] USAPlatelet EstimateDecreased NormalNoBlowing Rock Hospital Physician GroupComment on above:Performed By: #### DIFF CBC, BMP ####[address] [address] USAPlatelet mean volume (Bld) [Entitic vol]8.5 fLNormal6.3-10.7The [facility] Physician GroupComment on above:Performed By: #### DIFF CBC, BMP ####[place] [address] [facility] Platelet MorphologyNormalNormalNormHCA Florida Oak [facility] Hospital Physician GroupComment on above:Result Comment: PERFORMED BY:[address] [place], [place] [phone] MEDICAL DIRECTORELAINE CHAUDHARY M.D.Performed By: #### DIFF CBC, BMP ####[place] [address] USAPlatelets (Bld) [#/Vol]12 10*3/uLOff scale low 150-450The [facility] Physician GroupComment on above:Result Comment: Critical value result called at 0946 on 12/31/24Performed By: #### DIFF CBC, BMP ####[place] [address] [facility] PolychromasiaSlightNormHCA Florida Oak Hill Hospital Physician GroupComment on above:Performed By: #### DIFF CBC, BMP ####[place] [address] USARBC (Bld) [#/Vol]3.10 10*6/uLLow3.60-5.00The [facility] Physician GroupComment on above:Performed By: #### DIFF CBC, BMP ####[place] [address] [facility] Reactive Lymphocytes7 %Normal0-12The [facility] Physician GroupComment on above: Performed By: #### DIFF CBC, BMP ####[place] [address] USASegmented neutrophils/100 WBC (Bld)23 %Iuk53-13Rmo [facility] Physician GroupComment on above:Performed By: #### DIFF CBC, BMP ####[place] [address] USAWBC (Bld) [#/Vol]1.1 10*3/uLLow3.8-11.6The [facility] Physician GroupComment on above:Performed By: #### DIFF CBC, BMP ####[address] [address] USAWhite Blood Count1.1 [CFU]/mLLow3.8-11.6The [facility] Physician GroupComment on above:Performed By: #### DIFF CBC, BMP ####[address] [address] USAGlucose Poct Glucometerson 16-74-1085Bieoabd [Mass/Vol]121 mg/dLNormHCA Florida Oak Hill Hospital Physician GroupComment on above:Result Comment: Random Glucose Reference Range is dependent on time and content of last meal. Glucose of more than 200 mg/dL in a nonstressed, ambulatory subject supports the diagnosis of Diabetes Hedy litus.PERFORMED BY:[address] [place], [place] [phone] MEDICAL LEESA CHAUDHARY M.D.Performed By: #### GLULS ####Point of Care testing,Glucose [Mass/Vol]156 mg/dLNoBlowing Rock Hospital Physician GroupComment on above:Result Comment: Random Glucose Reference Range is dependent on time and content of last meal. Glucose of more than 200 mg/dL in a nonstressed, ambulatory subject supports the diagnosis of Diabetes Mellitus.PERFORMED BY:[address] [place], [place] [phone] MEDICAL LEESA CHAUDHARY M.D.Performed By: #### GLULS ####Point of Care testing,Basic Metabolic Panelon 13-06-4639Xrmpt gap [Moles/Vol]7.7 mmol/LNormal6.0-15.0The [facility] Physician GroupComment on above:Performed By: #### DIFF CBC, BMP ####[place] [address] [place], [place] [address] USACalcium [Mass/Vol]7.3 mg/dLLow 8.6-10.3The [facility] Physician GroupComment on above:Performed By: #### DIFF CBC, BMP ####[facility] [place] [address] USAChloride [Moles/Vol]104 mmol/OCmpaxd87-479Fwz [facility] Comment on above:Performed By: #### DIFF CBC, BMP ####[address] [place] [address] USACO2 [Moles/Vol]28.8 mmol/LNormal 21.0-31.0The [facility] Physician GroupComment on above:Performed By: #### DIFF CBC, BMP ####[address] [place] [address] USACreatinine [Mass/Vol]0.90 mg/dLNormal0.60-1.20The [facility] Comment on above:Performed By: #### DIFF CBC, BMP ####[address] [address] USACreatinine Clr Calc Vxuorbae72.59 NormalThe [facility] Physician GroupComment on above:Result Comment: PERFORMED BY:[address] [place], [place] [phone] MEDICAL LEESA CHAUDHARY M.D.Performed By: #### DIFF CBC, BMP ####[address] [address] USAGFR/1.73 sq M.predicted MDRD (S/P/Bld) [Vol rate/Area]mL/min/{1.73_m2}Normal The [facility] Physician GroupComment on above:Performed By: #### DIFF CBC, BMP ####[address] [address] USAGlucose [Mass/Vol]235 mg/xJTjms43-648Wul [facility] Physician GroupComment on above: Result Comment: Random Glucose Reference Range is dependent on time and content of last meal. Glucose of more than 200 mg/dL in a nonstressed, ambulatory subject supports the diagnosis of Diabetes Mellitus. ADA recommended reference rangePerformed By: #### DIFF CBC, BMP ####[address] [address] USAPotassium [Moles/Vol]2.5 mmol/LOff scale low 3.5-5.1The [facility] Physician GroupComment on above:Result Comment: Critical Result Called to and read back by: ISIAH BROWN at: 12/30/2024 08:47:59 by:Fina [id number] By: #### DIFF CBC, BMP ####[address] [address] USASodium [Moles/Vol]138 mmol/BAselmb197-937Mkt [facility] Physician GroupComment on above:Performed By: #### DIFF CBC, BMP ####[address] [address] USAUrea nitrogen [Mass/Vol]22 mg/dLNormal7-25The [facility] Physician GroupComment on above:Performed By: #### DIFF CBC, BMP ####[address] [address] USADiff and CBCon 04-00-0792Tmxibkbuyuch Ql (Bld) SlightNormalThe [facility] Physician GroupComment on above:Performed By: #### DIFF CBC, BMP ####[address] [address] USABasophils/100 WBC (Bld)0 %Normal0-2The [facility] Physician GroupComment on above:Performed By: #### DIFF CBC, BMP ####[address] [address] USAEosinophils/100 WBC (Bld)0 %Low1-3The [facility] Physician GroupComment on above:Performed By: #### DIFF CBC, BMP ####[address] [address] [place] Erythrocyte distribution width (RBC) [Ratio]15.1 %Ijntof19.9-15.3The [facility] Physician GroupComment on above:Performed By: #### DIFF CBC, BMP ####[address] [address] USAHematocrit (Bld) [Volume fraction]26.9 %Low34.0-46.4The [facility] Physician GroupComment on above:Performed By: #### DIFF CBC, BMP ####[address] [address] USAHemoglobin (Bld) [Mass/Vol]9.0 g/dLLow 11.8-15.4The [facility] Physician GroupComment on above:Performed By: #### DIFF CBC, BMP ####[address] [address] USAHypochromasiaSlightNormalThe [facility] Physician GroupComment on above: Performed By: #### DIFF CBC, BMP ####[address] [address] USALymphocytes/100 WBC (Bld)41 %Jwxlsc52-60Fqr [facility] Physician GroupComment on above:Performed By: #### DIFF CBC, BMP ####[address] [address] USAMCH (RBC) [Entitic mass]29.4 oeBnrzww09.7-34.3The [facility] Physician GroupComment on above:Performed By: #### DIFF CBC, BMP ####[address] [address] USAMCV (RBC) [Entitic vol]88.1 bGCarrmt60-061Ntv [facility] Physician GroupComment on above:Performed By: #### DIFF CBC, BMP ####[address] [address] USAMean Corpuscular HGB Conc33.3 g/iSTozcxk76.0-35.0The [facility] Physician GroupComment on above:Performed By: #### DIFF CBC, BMP ####[address] [address] USAMonocytes/100 WBC (Bld)14 %High2-11The [facility] Physician GroupComment on above:Performed By: #### DIFF CBC, BMP ####[address] [address] [place] Nucleated Red Blood Cell3 /100{WBC}High0-0The [facility] Physician GroupComment on above:Performed By: #### DIFF CBC, BMP ####[facility] [place] [address] USAPlatelet EstimateDecreasedNormalNormHCA Florida [facility] Hospital Physician GroupComment on above:Performed By: #### DIFF CBC, BMP ####[address] [place] [address] [place] Platelet mean volume (Bld) [Entitic vol]8.4 fLNormal6.3-10.7The [facility] Physician GroupComment on above:Performed By: #### DIFF CBC, BMP ####[address] [address] USAPlatelet Morphology NormalNormalNormHCA Florida Oak [facility] Hospital Physician GroupComment on above:Result Comment: PERFORMED BY:[address] [place], [place] [phone] MEDICAL DIRECTORELAINE CHAUDHARY M.D.Performed By: #### DIFF CBC, BMP ####[address] [address] USAPlatelets (Bld) [#/Vol]16 10*3/uLOff scale tql191-757Ggy [facility] Physician GroupComment on above:Result Comment: Critical value result called at 0846 on 12/30/24Performed By: #### DIFF CBC, BMP ####[address] [address] USARBC (Bld) [#/Vol]3.05 10*6/uLLow 3.60-5.00The [facility] Physician GroupComment on above:Performed By: #### DIFF CBC, BMP ####[facility] [place] [address] USAReactive Lymphocytes6 %Normal0-12The [facility] Physician GroupComment on above:Performed By: #### DIFF CBC, BMP ####[address] [address] USASegmented neutrophils/100 WBC (Bld)39 %Low 50-70The [facility] Physician GroupComment on above:Performed By: #### DIFF CBC, BMP ####[address] [place] [address] USAWBC (Bld) [#/Vol]1.0 10*3/uLLow3.8-11.6The [facility] Physician GroupComment on above:Performed By: #### DIFF CBC, BMP ####[address] [place] [address] USAWhite Blood Count1.0 [CFU]/mLLow3.8-11.6The [facility] Physician GroupComment on above:Performed By: #### DIFF CBC, BMP ####[address] [address] USAGlucose Poct Glucometerson 92-13-3596Pbrltkq [Mass/Vol]274 mg/dLNoBlowing Rock Hospital Physician GroupComment on above:Result Comment: Random Glucose Reference Range is dependent on time and content of last meal. Glucose of more than 200 mg/dL in a nonstressed, ambulatory subject supports the diagnosis of Diabetes Hedy litus.PERFORMED BY:[address] [place], [place] [phone] MEDICAL LEESA CHAUDHARY M.D.Performed By: #### GLULS ####Point of Care testing,Glucose [Mass/Vol]307 mg/dLNoBlowing Rock Hospital Physician GroupComment on above:Result Comment: Random Glucose Reference Range is dependent on time and content of last meal. Glucose of more than 200 mg/dL in a nonstressed, ambulatory subject supports the diagnosis of Diabetes Mellitus.PERFORMED BY:[address] [place], [place] [phone] MEDICAL LEESA CHAUDHARY M.D.Performed By: #### GLULS ####Point of Care testing,Glucose [Mass/Vol]298 mg/dLNoBlowing Rock Hospital Physician GroupComment on above:Result Comment: Random Glucose Reference Range is dependent on time and content of last meal. Glucose of more than 200 mg/dL in a nonstressed, ambulatory subject supports the diagnosis of Diabetes Mellitus.PERFORMED BY:[address] KCJane[place], [place] [phone] MEDICAL DIRECTORELAINE CHAUDHARY M.D.Performed By: #### GLULS ####Point of Care testing, Glucose [Mass/Vol]249 mg/dLNoBlowing Rock Hospital Physician GroupComment on above: Result Comment: Random Glucose Reference Range is dependent on time and content of last meal. Glucose of more than 200 mg/dL in a nonstressed, ambulatory subject supports the diagnosis of Diabetes Mellitus.PERFORMED BY:[address] [place], [place] [phone] MEDICAL DIRECTORELAINE CHAUDHARY M.D.Performed By: #### GLULS ####Point of Care testing,Basic Metabolic Panelon 55-80-1956Xceme gap [Moles/Vol]7.4 mmol/LNormal 6.0-15.0The [facility] Physician GroupComment on above:Performed By: #### DIFF CBC, BMP ####[address] [address] USACalcium [Mass/Vol]7.1 mg/dLLow8.6-10.3The [facility] Physician GroupComment on above:Performed By: #### DIFF CBC, BMP ####[address] [address] USAChloride [Moles/Vol]103 mmol/GPsdnjb40-980Zqa [facility] CenterComment on above:Performed By: #### DIFF CBC, BMP ####[address] [address] USACO2 [Moles/Vol]27.9 mmol/ZZvrhyr80.0-31.0The [facility] Physician GroupComment on above:Performed By: #### DIFF CBC, BMP ####[address] [address] USACreatinine [Mass/Vol]1.07 mg/dLAbnormal 0.60-1.20The [facility] Physician GroupComment on above:Performed By: #### DIFF CBC, BMP ####[address] [address] USACreatinine Clr Calc Qoopmkkm00.23NormHCA Florida [facility] Hospital Physician GroupComment on above:Result Comment: PERFORMED BY:[address] [place], [place] [phone] MEDICAL DIRECTORELAINE CHAUDHARY M.D.Performed By: #### DIFF CBC, BMP ####[address] [place] [address] USAGFR/1.73 sq M.predicted MDRD (S/P/Bld) [Vol rate/Area]57.288 mL/min/{1.73_m2}NormalThe [facility] Comment on above:Performed By: #### DIFF CBC, BMP ####[address] [place] [address] USAGlucose [Mass/Vol]296 mg/nTSllh25-417 The [facility] Physician GroupComment on above:Result Comment: Random Glucose Reference Range is dependent on time and content of last meal. Glucose of more than 200 mg/dL in a nonstressed, ambulatory subject supports the diagnosis of Diabetes Mellitus. ADA recommended reference rangePerformed By: #### DIFF CBC, BMP ####[address] [address] [place] Potassium [Moles/Vol]3.3 mmol/LLow3.5-5.1The [facility] Physician GroupComment on above:Performed By: #### DIFF CBC, BMP ####[address] [address] USASodium [Moles/Vol]135 mmol/IHlu672-633Gti [facility] Physician GroupComment on above:Performed By: #### DIFF CBC, BMP ####[address] [place] [address] USAUrea nitrogen [Mass/Vol]30 mg/dLHigh7-25The [facility] Physician GroupComment on above:Performed By: #### DIFF CBC, BMP ####[address] [address] USADiff and CBCon 97-52-6076Bxhlmqgnr/100 WBC (Bld)2 %Normal0-2The [facility] Physician GroupComment on above:Performed By: #### DIFF CBC, BMP ####[address] [address] USAErythrocyte distribution width (RBC) [Ratio]15.0 %Hlqcqd43.9-15.3The [facility] Physician GroupComment on above:Performed By: #### DIFF CBC, BMP ####[address] [address] USAGiant Platelet Tally2 /100{WBC}NormalThe [facility] Physician GroupComment on above: Performed By: #### DIFF CBC, BMP ####[address] [address] USAHematocrit (Bld) [Volume fraction]26.7 %Low34.0-46.4 The [facility] Physician GroupComment on above:Performed By: #### DIFF CBC, BMP ####[address] [address] [place] Hemoglobin (Bld) [Mass/Vol]9.0 g/dLLow11.8-15.4The [facility] Comment on above:Performed By: #### DIFF CBC, BMP ####[address] [address] USALymphocytes/100 WBC (Bld)41 %Normal 18-42The [facility] Physician GroupComment on above:Performed By: #### DIFF CBC, BMP ####[address] [address] USAMCH (RBC) [Entitic mass]30.1 zzAyygrh02.7-34.3The [facility] Physician GroupComment on above:Performed By: #### DIFF CBC, BMP ####[address] [address] USAMCV (RBC) [Entitic vol]89.2 hQGzlyri73-349Mpr [facility] Physician GroupComment on above:Performed By: #### DIFF CBC, BMP ####[address] [address] USAMean Corpuscular HGB Conc33.7 g/uBPastvg52.0-35.0The [facility] Physician GroupComment on above:Performed By: #### DIFF CBC, BMP ####[address] [address] USAMetamyelocytes1 %High0-0The [facility] Physician GroupComment on above:Performed By: #### DIFF CBC, BMP ####[address] [address] USAMonocytes/100 WBC (Bld)10 %Normal2-11The [facility] Physician GroupComment on above:Performed By: #### DIFF CBC, BMP ####[address] [address] USAMyelocytes1 %High0-0The [facility] Physician GroupComment on above: Performed By: #### DIFF CBC, BMP ####[address] [address] USAPlatelet EstimateDecreasedNormalNormHCA Florida [facility] Hospital Physician GroupComment on above:Performed By: #### DIFF CBC, BMP ####[address] [address] USAPlatelet mean volume (Bld) [Entitic vol]9.5 fLNormal6.3-10.7The [facility] Physician GroupComment on above:Performed By: #### DIFF CBC, BMP ####[address] [address] USAPlatelet MorphologyNormalNormalNormHCA Florida [facility] Physician GroupComment on above:Result Comment: PERFORMED BY:[address] [place], [place] [phone] MEDICAL LEESA CHAUDHARY M.D.Performed By: #### DIFF CBC, BMP ####[address] [address] [place] Platelets (Bld) [#/Vol]10 10*3/uLOff scale bul483-702Rqd [facility] Physician GroupComment on above:Result Comment: Critical value result called at 0839 on 12/29/24Performed By: #### DIFF CBC, BMP ####[address] [address] USARBC (Bld) [#/Vol]2.99 10*6/uLLow3.60-5.00The [facility] CenterComment on above:Performed By: #### DIFF CBC, BMP ####[address] [address] USARBC morphology finding Nom (Bld)NormalNormalNoBlowing Rock Hospital Physician [facility] Comment on above:Performed By: #### DIFF CBC, BMP ####[address] [address] USASegmented neutrophils/100 WBC (Bld)46 %Wwu69-09Zxl [facility] Physician GroupComment on above:Performed By: #### DIFF CBC, BMP ####[address] [address] USAWBC (Bld) [#/Vol]0.7 10*3/uLLow3.8-11.6The [facility] Physician GroupComment on above:Performed By: #### DIFF CBC, BMP ####[address] USAWhite Blood Count0.7 [CFU]/mLLow3.8-11.6The [facility] CenterComment on above:Performed By: #### DIFF CBC, BMP ####[address] USAGlucose Poct Glucometerson 42-62-9507Dlbunat [Mass/Vol]301 mg/dLNoBlowing Rock Hospital Physician [facility] CenterComment on above:Result Comment: Random Glucose Reference Range is dependent on time and content of last meal. Glucose of more than 200 mg/dL in a nonstressed, ambulatory subject supports the diagnosis of Diabetes Hedy litus.PERFORMED BY:[address] [place], [place] [phone] MEDICAL DIRECTORELAINE CHAUDHARY M.D.Performed By: #### GLULS ####Point of Care testing,Glucose [Mass/Vol]306 mg/dLNoBlowing Rock Hospital Physician [facility] CenterComment on above:Result Comment: Random Glucose Reference Range is dependent on time and content of last meal. Glucose of more than 200 mg/dL in a nonstressed, ambulatory subject supports the diagnosis of Diabetes Mellitus.PERFORMED BY:[address], [place] [phone] MEDICAL LEESA CHAUDHARY M.D.Performed By: #### GLULS ####Point of Care testing,Ilewyjw9Hjd7: Cleaned MeterNoBlowing Rock Hospital Physician GroupComment on above:Result Comment: PERFORMED BY:[address] [place], [place] [phone] MEDICAL LEESA CHAUDHARY M.D.Performed By: #### GLULS ####Point of Care testing,Glucose [Mass/Vol]358 mg/dLAdventHealth Heart of Florida Physician GroupComment on above:Result Comment: Random Glucose Reference Range is dependent on time and content of last meal. Glucose of more than 200 mg/dL in a nonstressed, ambulatory subject supports the diagnosis of Diabetes Mellitus.Performed By: #### GLULS ####Point of Care testing,Glucose [Mass/Vol]289 mg/dLAdventHealth Heart of Florida Physician GroupComment on above:Result Comment: Random Glucose Reference Range is dependent on time and content of last meal. Glucose of more than 200 mg/dL in a nonstressed, ambulatory subject supports the diagnosis of Diabetes Mellitus.PERFORMED BY:[address] [place], [place] [phone] MEDICAL LEESA CHAUDHARY M.D.Performed By: #### GLULS ####Point of Care testing, Glucose [Mass/Vol]315 mg/dLAdventHealth Heart of Florida Physician GroupComment on above: Result Comment: Random Glucose Reference Range is dependent on time and content of last meal. Glucose of more than 200 mg/dL in a nonstressed, ambulatory subject supports the diagnosis of Diabetes Mellitus.PERFORMED BY:[address] [place], [place] [phone] ISRA CHAUDHARY M.D.Performed By: #### GLULS ####Point of Care testing,Glucose [Mass/Vol]358 mg/dLAdventHealth [facility] of [facility] Physician [facility] CenterComment on above:Result Comment: Random Glucose Reference Range is dependent on time and content of last meal. Glucose of more than 200 mg/dL in a nonstressed, ambulatory subject supports the diagnosis of Diabetes Mellitus.PERFORMED BY:[address] [place], [place] [phone] MEDICAL DIRECTORELAINE CHAUDHARY M.D.Performed By: #### GLULS ####Point of Care testing,Antibody Identificationon 12-28-2024 Antibody RutayjoyybisdjLJ39RbuslzOwtSelect Medical Specialty Hospital - [facility], IncBasic Metabolic Panelon 84-57-0650Hbgsj gap [Moles/Vol]9.3 mmol/LNormal6.0-15.0The [facility] Physician GroupComment on above:Performed By: #### BMP, DIFF CBC ####[address] [address] USACalcium [Mass/Vol]6.8 mg/dLLow8.6-10.3The [facility] Physician GroupComment on above:Performed By: #### BMP, DIFF CBC ####[address] [address] USAChloride [Moles/Vol]102 mmol/VCxxsxi24-922Lqn [facility] Physician GroupComment on above:Performed By: #### BMP, DIFF CBC ####[address] [address] USACO2 [Moles/Vol]26.3 mmol/L Oslasy64.0-31.0The [facility] Physician GroupComment on above:Performed By: #### BMP, DIFF CBC ####[address] [address] USACreatinine [Mass/Vol]1.62 mg/dLHigh0.60-1.20The [facility] Physician GroupComment on above:Performed By: #### BMP, DIFF CBC ####[address] [address] USACreatinine Clr Calc Pharmacy 38.00NormHCA Florida [facility] Hospital Physician GroupComment on above:Result Comment: PERFORMED BY:[facility] [place] [address] [place], [place] [phone] MEDICAL DIRECTORELAINE CHAUDHARY M.D.Performed By: #### BMP, DIFF CBC ####[address] [address] USAGFR/1.73 sq M.predicted MDRD (S/P/Bld) [Vol rate/Area]34.826 mL/min/{1.73_m2}NormalThe [facility] Physician GroupComment on above:Performed By: #### BMP, DIFF CBC ####[address] [address] USAGlucose [Mass/Vol]250 mg/eLWizl00-317Viu [facility] Physician GroupComment on above:Result Comment: Random Glucose Reference Range is dependent on time and content of last meal. Glucose of more than 200 mg/dL in a nonstressed, ambulatory subject supports the diagnosis of Diabetes Mellitus. ADA recommended reference rangePerformed By: #### BMP, DIFF CBC ####[address] [address] USAPotassium [Moles/Vol] 3.6 mmol/LNormal3.5-5.1The [facility] Physician GroupComment on above:Performed By: #### BMP, DIFF CBC ####[address] [address] USASodium [Moles/Vol]134 mmol/RXef286-364Vey [facility] Physician GroupComment on above:Performed By: #### BMP, DIFF CBC ####[address] [address] USAUrea nitrogen [Mass/Vol]36 mg/dLHigh7-25The [facility] Physician GroupComment on above: Performed By: #### BMP, DIFF CBC ####[address] [address] USABioFire Not Detectedon 03-01-6586DcpZovz Not DetectedNot detectedNormalNot DetecteThe [facility] Physician GroupComment on above:Result Comment: This is a duplicate RP2.1 COVID (PCR) result to be used for statistical tracking purpose only.PERFORMED BY:[address] [address] [address] [place], [place] [phone] MEDICAL LEESA CHAUDHARY M.D.Performed By: #### BIOFIRECOVNOTDE, RESP PANEL UPP. ####[address] [address] USAood Bank Pathologist Reviewon 30-70-5884Ocuqn Bank Pathologist ReviewSent to PathologyAdventHealth Heart of Florida Physician GroupComment on above:Result Comment: PERFORMED BY:[address] [place], [place] [phone] MEDICAL DIRECTORELAINE CHAUDHARY M.D.Diff and CBCon 92-26-6615Cxqhfkvcnsgl Ql (Bld)SlightAdventHealth Heart of Florida Physician GroupComment on above:Performed By: #### BMP, DIFF CBC ####[address] [id number] USABand form neutrophils/100 WBC (Bld)14 %High0-5The [facility] Physician GroupComment on above:Performed By: #### BMP, DIFF CBC ####[address] [address] USAErythrocyte distribution width (RBC) [Ratio]15.0 %Jgqpwa38.9-15.3The [facility] Physician GroupComment on above:Performed By: #### BMP, DIFF CBC ####[address] [place] [id number] USAGiant Platelet Tally2 /100{WBC}NormalThe [facility] Physician GroupComment on above: Performed By: #### BMP, DIFF CBC ####[address] [address] USAHematocrit (Bld) [Volume fraction]29.4 %Low34.0-46.4 The [facility] Physician GroupComment on above:Performed By: #### BMP, DIFF CBC ####[address] [address] [place] Hemoglobin (Bld) [Mass/Vol]9.7 g/dLLow11.8-15.4The [facility] Comment on above:Performed By: #### BMP, DIFF CBC ####[address] [address] USALarge PlateletsSlightAdventHealth Heart of Florida Physician GroupComment on above:Result Comment: PERFORMED BY:[address] [place], [place] [phone] MEDICAL DIRECTORELAINE CHAUDHARY M.D.Performed By: #### BMP, DIFF CBC ####[address] [address] [place] Lymphocytes/100 WBC (Bld)31 %Aahmdh42-45Qpm [facility] Physician GroupComment on above:Performed By: #### BMP, DIFF CBC ####[address] [address] [facility]H (RBC) [Entitic mass]29.4 qbHmccjp46.7-34.3 The [facility] Physician GroupComment on above:Performed By: #### BMP, DIFF CBC ####[address] [address] [facility] CITYV (RBC) [Entitic vol]88.7 yCIdfdqo70-649Fkg [facility] Physician GroupComment on above:Performed By: #### BMP, DIFF CBC ####[address] [address] USAMean Corpuscular HGB Conc33.1 g/dLNormal 32.0-35.0The [facility] Physician GroupComment on above:Performed By: #### BMP, DIFF CBC ####[address] [address] USAMicrocytosisSlightNoBlowing Rock Hospital Physician GroupComment on above: Performed By: #### BMP, DIFF CBC ####[address] [address] USAMonocytes/100 WBC (Bld)2 %Normal2-11The [facility] Physician GroupComment on above:Performed By: #### BMP, DIFF CBC ####[address] [place] [address] USAOvalocytesSlight NormalGulf Breeze Hospital Physician GroupComment on above:Performed By: #### BMP, DIFF CBC ####[address] [address] [place] Platelet EstimateDecreasedNormalNoBlowing Rock Hospital Physician GroupComment on above:Performed By: #### BMP, DIFF CBC ####[place] [id number] USAPlatelet mean volume (Bld) [Entitic vol]11.3 fLHigh6.3-10.7The [facility] Physician GroupComment on above:Performed By: #### BMP, DIFF CBC ####[place] [address] USAPlatelets (Bld) [#/Vol]4 10*3/uLOff scale gwr410-976Zbk [facility] Physician GroupComment on above:Performed By: #### BMP, DIFF CBC ####[address] [address] USAPoikilocytosisSlight NormalThe [facility] Physician GroupComment on above:Performed By: #### BMP, DIFF CBC ####[place] [address] [place] RBC (Bld) [#/Vol]3.31 10*6/uLLow3.60-5.00The [facility] Physician GroupComment on above:Performed By: #### BMP, DIFF CBC ####[place] [address] USAReactive Lymphocytes4 %Normal0-12The [facility] Physician GroupComment on above:Performed By: #### BMP, DIFF CBC ####[address] [address] USASegmented neutrophils/100 WBC (Bld)50 %Gbypwl47-87[facility] Physician GroupComment on above:Performed By: #### BMP, DIFF CBC ####[address] [address] USASpherocytesSlightNoBlowing Rock Hospital Physician GroupComment on above:Performed By: #### BMP, DIFF CBC ####[facility] [place] [address] USATear Drop CellsSlightAdventHealth Heart of Florida Physician GroupComment on above:Performed By: #### BMP, DIFF CBC ####[address] [address] USAWBC (Bld) [#/Vol]0.6 10*3/uLLow3.8-11.6The [facility] Physician GroupComment on above:Performed By: #### BMP, DIFF CBC ####[address] [address] USAWhite Blood Count0.6 [CFU]/mLLow3.8-11.6The [facility] Physician GroupComment on above:Performed By: #### BMP, DIFF CBC ####[address] [address] USAGlucose Poct Glucometerson 47-20-0365Xdlhipr9GabgkaLix [place] Physician [facility] CenterComment on above:Result Comment: Glu2: WILL NOTIFY DR/RNPERFORMED BY:[address] [place], [place] [phone] MEDICAL LEESA CHAUDHARY M.D.Performed By: #### GLULS ####Point of Care testing, Glucose [Mass/Vol]473 mg/dLOff scale [facility] Physician [facility] CenterComment on above:Result Comment: Random Glucose Reference Range is dependent on time and content of last meal. Glucose of more than 200 mg/dL in a nonstressed, ambulatory subject supports the diagnosis of Diabetes Mellitus.Performed By: #### GLULS ####Point of Care testing,Adrcult4BjowbzFdw[address] Physician [facility] Comment on above:Result Comment: Glu2: Will Repeat TestPERFORMED BY:[place] [address] [address] [place], [place] [phone] MEDICAL LEESA CHAUDHARY M.D.Performed By: #### GLULS ####Point of Care testing,Glucose [Mass/Vol]458 mg/dLOff scale [facility] Comment on above:Result Comment: Random Glucose Reference Range is dependent on time and content of last meal. Glucose of more than 200 mg/dL in a nonstressed, ambulatory subject supports the diagnosis of Diabetes Mellitus.Performed By: #### GLULS ####Point of Care testing,Ouowbfj3Hyd8: Cleaned MeterAdventHealth Heart of Florida Physician GroupComment on above:Performed By: #### GLULS ####Point of Care testing,Thpueyb8ROBD NOTIFY DR/RNAdventHealth Heart of Florida Physician GroupComment on above:Result Comment: PERFORMED BY:[address] [address] KCJaneFRANK, [place] [phone] MEDICAL DIRECTORELAINE CHAUDHARY M.D.Performed By: #### GLULS ####Point of Care testing,Glucose [Mass/Vol]463 mg/dLOff scale [facility] Physician GroupComment on above: Result Comment: Random Glucose Reference Range is dependent on time and content of last meal. Glucose of more than 200 mg/dL in a nonstressed, ambulatory subject supports the diagnosis of Diabetes Mellitus.Performed By: #### GLULS ####Point of Care testing,Ifziqfm5Wvd1: Cleaned MeterAdventHealth Heart of Florida Physician GroupComment on above:Result Comment: PERFORMED BY:[place] [address] [address] KCJaneFR[place], [place] [phone] MEDICAL LEESA CHAUDHARY M.D.Performed By: #### GLULS ####Point of Care testing, Glucose [Mass/Vol]355 mg/dLAdventHealth Heart of Florida Physician GroupComment on above: Result Comment: Random Glucose Reference Range is dependent on time and content of last meal. Glucose of more than 200 mg/dL in a nonstressed, ambulatory subject supports the diagnosis of Diabetes Mellitus.Performed By: #### GLULS ####Point of Care testing,Glucose [Mass/Vol]261 mg/dLAdventHealth Heart of Florida Physician GroupComment on above:Result Comment: Random Glucose Reference Range is dependent on time and content of last meal. Glucose of more than 200 mg/dL in a nonstressed, ambulatory subject supports the diagnosis of Diabetes Hedy litus.PERFORMED BY:[address] [place] [address] [address] [place], [place] [phone] MEDICAL LEESA CHAUDHARY M.D.Performed By: #### GLULS ####Point of Care testing,Glucose [Mass/Vol]304 mg/dLNoBlowing Rock Hospital Physician GroupComment on above:Result Comment: Random Glucose Reference Range is dependent on time and content of last meal. Glucose of more than 200 mg/dL in a nonstressed, ambulatory subject supports the diagnosis of Diabetes Mellitus.PERFORMED BY:[place] [address] [address] [place], [place] [phone] MEDICAL LEESA CHAUDHARY M.D.Performed By: #### GLULS ####Point of Care testing,Respiratory (Upper) Panel, PCRon 57-43-3118Ewnpetjhasm (Upper) Panel, PCRNoBlowing Rock Hospital Physician GroupComment on above:Performed By: #### BIOFIRECOVNOTDE, RESP PANEL UPP. ####[address] [address] [place] Vancomycin,Randomon 11-55-0006Ruiouixqnn,Qvetfl34.7Jvmjza5.0-20.0The [facility] Physician GroupComment on above:Order Comment: Date of last dose?: 20241227 Time of last dose?: 1030Result Comment: Last dose: -PERFORMED BY:[place] [address] [address] ALYSIAJoseJaneFRANKDAVID, [place] [phone] MEDICAL LEESA CHAUDHARY M.D.Performed By: #### VANCR ####[address] [address] USAAlanine aminotransferase [Enzymatic activity/volume] in Serum or PlasmaOrdered By: PROVIDER TEMP on 07-64-0934MYR [Catalytic activity/Vol]38 U/LNormal7-52K[facility]tering HealthComment on above:Performed By: #### SCAN CBC, CMP ####[address] [address] USAAlbumin [Mass/volume] in Serum or Plasma by Bromocresol green (BCG) dye binding methoOrdered By: PROVIDER TEMP on 92-37-2328Oyegrtd BCG dye [Mass/Vol]3.1 g/dLLow3.5-5.7FAshtabula General HospitalAlkaline phosphatase [Enzymatic activity/volume] in Serum or PlasmaOrdered By: PROVIDER TEMP on 77-91-9541SVG [Catalytic activity/Vol]106 U/L Zksa96-964YyeutnavaKettering HealthComment on above:Performed By: #### SCAN CBC, CMP ####[address] [place] [address] USAAmerican [place] BB Sendouton 46-96-0570Nqvdapxx [place] BB Sendout [facility] Physician GroupComment on above:Result Comment: Sent to [facility] testing. Final report to follow.PERFORMED BY:[address] [place], [place] [phone] MEDICAL DIRECTORELAINE CHAUDHARY M.D.Anisocytosis [Presence] in Blood by Light microscopyOrdered By: Erin Guevara on 12-27-2024 Anisocytosis Ql (Bld)SlightNormalKettering HealthComment on above:Performed By: #### SCAN CBC, CMP ####[address] [place] [address] USAAppearance of UrineOrdered By: Erin Guevara on 82-19-9507Gvcgxcdtua (U)CloudyCritically abnormalCleZanesville City HospitalComment on above:Order Comment: Name Collection Type:: Clean- Voided MidstreamPerformed By: #### CUU, ADDONUAPLUS ####[address] USAAspartate aminotransferase [Enzymatic activity/volume] in Serum or PlasmaOrdered By: PROVIDER TEMP on 20-22-5330SEZ [Catalytic activity/Vol]21 U/BIphpeq94-19QurbamvqkKettering HealthComment on above:Performed By: #### SCAN CBC, CMP ####[address] [place] [address] USABacteria [Presence] in Urine by AutomatedOrdered By: Erin Guevara on 04-35-2883Ynbsygmz Auto Ql (U)Rare [HPF]None SeenKettering HealthBasophils [#/volume] in Blood by Automated countOrdered By: Erin Guevara on 16-23-2097Cprgnpcow (Bld) [#/Vol]0.0 10*3/uLNormal0.0-0.2FAshtabula General HospitalComment on above:Performed By: #### SCAN CBC, CMP ####[address] [place] [address] USABasophils/100 leukocytes in Blood by Automated countOrdered By: Erin Guevara on 96-70-2408Dgmsorzcu/100 WBC (Bld)0.5 %Normal .[facility]tering HealthComment on above:Performed By: #### SCAN CBC, CMP ####[place] [address] [place] Bilirubin Test strip Ql (U)Ordered By: Erin Guevara on 33-16-8518Whnamjrug Ql (U)NegativeNegativeKettering HealthBilirubin.total [Mass/volume] in Serum or PlasmaOrdered By: PROVIDER TEMP on 00-18-5574Rhjyrrlli [Mass/Vol]0.8 mg/dLNormal0.3-1.0K[facility]tering HealthComment on above:Performed By: #### SCAN CBC, CMP ####[address] [address] USABlood Cultureon 94-49-7290Cbzbwjob identified Cx Nom (Bld)NO GROWTH 5 DAYS PERFORMED BY: [facility] [address] [place] [id number] PATHOLOGIST INBOUND TELEMARKETER ELAINE CHAUDHARY M.D.NormalThe [facility] Physician GroupComment on above: Performed By: #### LACTIC, CUBLD ####[address] [address] USACOVID Cepheid NegativeOrdered By: Erin Guevara on 25-85-3780NCHP-CoV-2 (COVID-19) RNA RONY+probe Ql (Unsp spec)NegativeNormal NegativeKettering HealthComment on above:Result Comment: This is a duplicate Cepheid Xpert Xpress CoV-2/Flu/RSV Plus RNA by RT-PCR result letitia used for statistical tracking purpose only.PERFORMED BY:[address] [place] [place], [place] [phone] MEDICAL LEESA CHAUDHARY M.D.Performed By: #### COVID19 FLU RSV, CEPHEID NEG ####[address] [address] USACOVID- 19 / Flu A/B / RSV PCRon 27-56-2670UWLT-CoV-2 (COVID-19) RNA RONY+probe Ql (Unsp spec)NormalThe [facility] Physician GroupComment on above:Performed By: #### COVID19 FLU RSV, CEPHEID NEG ####[address] [address] USACalcium [Mass/volume] in Serum or PlasmaOrdered By: PROVIDER TEMP on 76-02-7040Iyutqpo [Mass/Vol]7.5 mg/dLLow8.6-10.3FAshtabula General HospitalComment on above:Performed By: #### SCAN CBC, CMP ####[address] [address] [place] Capillary blood glucose measurement by glucometer (mass/volume)Ordered By: Erin Guevara on 19-26-9522Dideyzj [Mass/Vol]189 mg/dLNormalKettering HealthComment on above:Result Comment: Random Glucose Reference Range is dependent on time and content of last meal. Glucose of more than 200 mg/dL in a nonstressed, ambulatory subject supports the diagnosis of Diabetes Hedy litus.PERFORMED BY:[place] [address] [address] [place], [place] [phone] MEDICAL LEESA CHAUDHARY M.D.Performed By: #### GLULS ####Point of Care testing,Carbon dioxide, total [Moles/volume] in Serum or PlasmaOrdered By: PROVIDER TEMP on 88-34-3948TR8 [Moles/Vol]31.3 mmol/L High21.0-31.0K[facility]tering HealthComment on above:Performed By: #### SCAN CBC, CMP ####[address] [address] USAChloride [Moles/volume] in Serum or PlasmaOrdered By: PROVIDER TEMP on 62-54-2727Qhbdobnh [Moles/Vol]91 mmol/FLiy09-514OwvcgrfmjKettering HealthComment on above:Performed By: #### SCAN CBC, CMP ####[address] [address] USAColor of Urine by AutoOrdered By: Erin Guevara on 38-77-9722Tlsov (U)YellowNormalYMercy Health – The Jewish HospitalComment on above:Order Comment: Name Collection Type:: Clean- Voided MidstreamPerformed By: #### VALERIE, ADDONUAPLUS ####[address] USAComprehensive Metabolic Panelon 09-58-0346Pnfebhv [Mass/Vol]3.1 g/dLLow3.5-5.7The [facility] Comment on above:Performed By: #### SCAN CBC, CMP ####[address] [address] USACreatinine Clr Calc Hrlndlel31.09 NormalGulf Breeze Hospital Physician GroupComment on above:Result Comment: PERFORMED BY:[place] [place] [place], [place] [phone] MEDICAL LEESA CHAUDHARY M.D.Performed By: #### SCAN CBC, CMP ####[address] [address] USAGFR/1.73 sq M.predicted MDRD (S/P/Bld) [Vol rate/Area]22.869 mL/min/{1.73_m2} NormalThe [facility] Physician GroupComment on above:Performed By: #### SCAN CBC, CMP ####[address] [address] [place] Creatinine [Mass/volume] in Serum or PlasmaOrdered By: PROVIDER TEMP on 32-87-5011Qpbwgbyouo [Mass/Vol]2.30 mg/dLHigh0.60-1.20K[facility]tering HealthComment on above:Performed By: #### SCAN CBC, CMP ####[address] [address] USADipstick and Microscopicon 48-93-0696Gjxspbcb,UrineRareNormalNone SeenThe [facility] Physician GroupComment on above:Order Comment: Name Collection Type:: Clean-Voided MidstreamPerformed By: #### CUU, ADDONUAPLUS ####[address] USABilirubin,UrineNegativeNormalNegativeThe [facility] Physician GroupComment on above:Order Comment: Name Collection Type:: Clean- Voided MidstreamPerformed By: #### CUU, ADDONUAPLUS ####[address] USAGlucose Ql (U)500 mg/dLNormal NormalThe [facility] Physician GroupComment on above:Order Comment: Name Collection Type:: Clean-Voided MidstreamPerformed By: #### CUU, ADDONUAPLUS ####[address] USAHyaline Casts,Oguiq8-5Jmjyti7-1Asp [facility] Physician GroupComment on above:Order Comment: Name Collection Type:: Clean-Voided MidstreamPerformed By: #### CUU, ADDONUAPLUS ####[address] USAMucus,UrineRareNormalThe [facility] Physician GroupComment on above:Order Comment: Name Collection Type:: Clean-Voided MidstreamResult Comment: PERFORMED BY:[address] [address] [place], [place] [phone] MEDICAL LEESA CHAUDHARY M.D.Performed By: #### CUU, ADDONUAPLUS ####[address], [place] USANitrite,UrineNegativeNormalNegativeThe [facility] Physician GroupComment on above:Order Comment: Name Collection Type:: Clean-Voided MidstreamPerformed By: #### CUU, ADDONUAPLUS ####[address], [place] USAOccult Blood,UrineNegativeNormalNegativeThe [facility] Physician GroupComment on above:Order Comment: Name Collection Type:: Clean- Voided MidstreamResult Comment: PERFORMED BY:[place] [address] [address] [place], [place] [phone] MEDICAL DIRECTORELAINE CHAUDHARY M.D.Performed By: #### CUU, ADDONUAPLUS ####[address] USARBC,Wfnsw8-0Ccqufj2-5 The [facility] Physician GroupComment on above:Order Comment: Name Collection Type:: Clean-Voided MidstreamPerformed By: #### CUU, ADDONUAPLUS ####[address] USASpecificy [place],Urine1.962Imxsit6.001-1.030The [facility] Physician GroupComment on above:Order Comment: Name Collection Type:: Clean-Voided MidstreamPerformed By: #### CUU, ADDONUAPLUS ####[address] USASquamous Epithelial Cell,Smzww6-0Ysskvi4-0Jtl [facility] Physician GroupComment on above:Order Comment: Name Collection Type:: Clean-Voided MidstreamPerformed By: #### CUU, ADDONUAPLUS ####[address] USAUrobilinogen,UrineNormalNormal NormalThe [facility] Physician GroupComment on above:Order Comment: Name Collection Type:: Clean-Voided MidstreamPerformed By: #### CUU, ADDONUAPLUS ####[facility] [facility] USAWBC CLUMP, UrineRareNormalNone SeenThe [facility] Physician GroupComment on above: Order Comment: Name Collection Type:: Clean-Voided MidstreamPerformed By: #### CUU, ADDONUAPLUS ####[address] [address] USAWBC,Adgsl21-03Xmjjxm3-2Rpa [facility] Physician GroupComment on above: Order Comment: Name Collection Type:: Clean-Voided MidstreamPerformed By: #### CUU, ADDONUAPLUS ####[address] [address] USADirect Coombson 62-66-7349Fehpgegekbyy AHGNegativeNormalNegativeThe [facility] Physician GroupComment on above:Result Comment: PERFORMED BY:[address] [place], [place] [phone] MEDICAL DIRECTORELAINE CHAUDHARY M.D.ECG 12 lead ECGon 90-01-9884LFB 12 lead ECGNormalThSt. Luke's Wood [facility] Physician [facility] CenterEosinophils [#/volume] in Blood by Automated countOrdered By: Erin Guevara on 34-23-4208Zyeuneoxfrh (Bld) [#/Vol] 0.2 10*3/uLNormal0.0-0.45K[facility] HealthComment on above: Performed By: #### SCAN CBC, CMP ####[place] [address] USAEosinophils/100 leukocytes in Blood by Automated countOrdered By: Erin Guevara on 13-75-4589Gqctoegvrti/100 WBC (Bld)11.8 % Normal.[facility]tering HealthComment on above:Performed By: #### SCAN CBC, CMP ####[place] [address] USAEpithelial cells.squamous [#/area] in Urine sediment by Automated count Ordered By: Erin Guevara on 55-42-4160Kitvnxxlkl cells.squamous Auto (Urine sed) [#/Area]5-9 [HPF]High0-2FAshtabula General HospitalErythrocyte distribution width [Ratio] by Automated countOrdered By: Erin Guevara on 08-04-0978Gytxgkqxfvj distribution width (RBC) [Ratio]15.0 %Jfmese54.9-15.3 [facility] HealthComment on above:Performed By: #### SCAN CBC, CMP ####[address] [place] [address] [facility] Erythrocyte morphology finding [Identifier] in BloodOrdered By: SAUL GONZALES on 13-62-1571YOR morphology finding Nom (Bld)N/AFAshtabula General Hospital Erythrocytes [#/area] in Urine sediment by Automated countOrdered By: Erin Guevara on 05-36-1862SYL Auto (Urine sed) [#/Area]1-2 [HPF]0-4FAshtabula General HospitalErythrocytes [#/volume] in Blood by Automated countOrdered By: Erin Guevara on 01-66-3244NJC (Bld) [#/Vol]3.97 10*6/uLNormal3.60-5.00 [facility] HealthComment on above:Performed By: #### SCAN CBC, CMP ####[address] [place] [address] [facility] Fibrinogenon 60-76-1572Qlsxogyoyg890 mg/vTXlvayj007-567Aql [facility] Physician GroupComment on above:Result Comment: A hematocrit value greater than 55% may lead to inaccurate results in coagulation testing. Patients having hematocrit values >55% require a special collection tube for coagulation studies. Please contact the laboratory at [phone] for redraw instructions.PERFORMED BY:[address] [place], [place] [phone] MEDICAL DIRECTORELAINE CHAUDHARY M.D.Performed By: #### PATH SLIDE REV, PT, FIB-C, PTT ####[address] [place] [address] USAFibrinogen [Mass/volume] in Platelet poor plasma by Coagulation assayOrdered By: Margarito Rajan on 33-26-8007Fyuvwidzhh Coag (PPP) [Mass/Vol]291 mg/vG637-643JaixcgfcoKettering HealthGlomerular filtration rate [Volume Rate/Area] in Serum, Plasma or Blood by CreatinineOrdered By: PROVIDER TEMP on 65-50-6800Vnrhkqsnni filtration rate [Volume Rate/Area] in Serum, Plasma or Blood by Ytozuvieva06.869 mL/MinKettering HealthGlucose [Mass/volume] in Serum or PlasmaOrdered By: PROVIDER TEMP on 80-14-5410Kybjhub [Mass/Vol]194 mg/yHPfhn27-063ZlxaprfavKettering Health Comment on above:Result Comment: Random Glucose Reference Range is dependent on time and content of last meal. Glucose of more than 200 mg/dL in a nonstressed, ambulatory subject supports the diagnosis of Diabetes Mellitus. ADA recommended reference rangePerformed By: #### SCAN CBC, CMP ####[facility] [address] [place] [address] USAGlucose [Mass/volume] in Urine by Test stripOrdered By: Erin Guevara on 20-98-0084Kskqnam Test strip (U) [Mass/Vol] 500 mg/dLHighNormalKettering HealthHematocrit [Volume Fraction] of Blood by Automated countOrdered By: Erin Guevara on 22-80-7350Wwmwtjquvv (Bld) [Volume fraction]34.7 %Nraodi76.0-46.4FAshtabula General Hospital Comment on above:Performed By: #### SCAN CBC, CMP ####[address] [address] USAHemoglobin Test strip Ql (U)Ordered By: Erin Guevara on 09-89-1464Ddzupscpmk Ql (U)NegativeNegativeKettering HealthHemoglobin [Mass/volume] in BloodOrdered By: Erin Guevara on 53-33-6046Jnmnupqivi (Bld) [Mass/Vol]11.6 g/dLLow11.8-15.4FAshtabula General HospitalComment on above:Performed By: #### SCAN CBC, CMP ####[address] [address] USAHyaline casts [#/area] in Urine sediment by Automated countOrdered By: Erin Guevara on 30-94-3484Ryufyua casts Auto (Urine sed) [#/Area]0-8 [LPF]0-8Kettering HealthINR in Platelet poor plasma by Coagulation assayOrdered By: Margarito Rajan on 93-25-7404QJX Coag (PPP) [Relative time]1.3 {INR}Normal [facility]tering HealthComment on above:Result Comment: INR Therapeutic Range [...] #### PATH SLIDE REV, PT, FIB-C, PTT ####[address] [address] USAKetones [Presence] in Urine by Test stripOrdered By: Erin Guevara on 00-68-3871Wqmxswp Ql (U)NegativeNormal NegativeKettering HealthComment on above:Order Comment: Name Collection Type:: Clean-Voided MidstreamPerformed By: #### CUU, ADDONUAPLUS ####[address] USALon 24-43-0558ENdwpzbJbf [facility] Physician GroupLactate [Moles/volume] in Serum or PlasmaOrdered By: Erin Guevara on 39-53-5871Mapyvvm [Moles/Vol]1.7 mmol/L Normal0.5-1.9K[facility]tering HealthComment on above:Result Comment: Lactic Acid reference range has been updated to 0.5 ? 1.9 mmol/L and the critical range of 2.0 or greater.PERFORMED BY:[address] [place], [place] [phone] MEDICAL LEESA CHAUDHARY M.D.Performed By: #### LACTIC, CUBLD ####[address] [address] USALeukocyte clumps [Presence] in Urine by AutomatedOrdered By: Erin Guevara on 12-27-2024 Leukocyte clumps Auto Ql (U)Rare [LPF][facility]itan HospitalLeukocyte esterase [Presence] in Urine by Test stripOrdered By: Erin Guevara on 28-61-8756Wrymidxle esterase Test strip Ql (U)2+NormalNegative [facility] HealthComment on above:Order Comment: Name Collection Type:: Clean-Voided MidstreamPerformed By: #### CUU, ADDONUAPLUS ####[facility] [address] [place], [place] USALeukocytes [#/area] in Urine sediment by Automated countOrdered By: Erin Guevara on 91-81-7281FUX Auto (Urine sed) [#/Area]10-19 [HPF]High0-4FAshtabula General Hospital Leukocytes [#/volume] corrected for nucleated erythrocytes in Blood by Automated counOrdered By: Erin Guevara on 87-34-9540IPM corrected for nucl RBC Auto (Bld) [#/Vol]1.8 10*3/uLLow3.8-11.6FAshtabula General HospitalLeukocytes [#/volume] in Blood by Automated countOrdered By: Erin Guevara on 12-27-2024 WBC (Bld) [#/Vol]1.8 10*3/uLLow3.8-11.6FAshtabula General HospitalComment on above:Performed By: #### SCAN CBC, CMP ####[facility] [address] [place] [address] USALymphocytes [#/volume] in Blood by Automated countOrdered By: Erin Guevara on 19-30-3293Hejmpksgvmz (Bld) [#/Vol]0.8 10*3/uLLow1.00-4.8K[facility]tering HealthComment on above:Performed By: #### SCAN CBC, CMP ####[facility] [address] [place] [address] USALymphocytes/100 leukocytes in Blood by Automated countOrdered By: Erin Guevara on 00-29-1371Oqtnusvhmdc/100 WBC (Bld)44.4 % Normal.[facility] HealthComment on above:Performed By: #### SCAN CBC, CMP ####[address] [place] [address] [facility]H [Entitic mass] by Automated countOrdered By: Erin Guevara on 12-27-2024 MCH (RBC) [Entitic mass]29.3 glUdhftp83.7-34.3FAshtabula General Hospital Comment on above:Performed By: #### SCAN CBC, CMP ####[place] [address] [facility] CITYHC Auto (RBC) [Mass/Vol]Ordered By: Erin Guevara on 44-27-9361ZYSL (RBC) [Mass/Vol]33.5 g/dL32.0-35.0K[facility]tering HealthMCV [Entitic volume] by Automated countOrdered By: Erin Guevara on 89-79-0975SNM (RBC) [Entitic vol]87.3 vJDfxlqj39-859WsgtexdmrKettering HealthComment on above:Performed By: #### SCAN CBC, CMP ####[address] Monocyte distribution width [Entitic volume] in Blood by AutomatedOrdered By: Erin Guevara on 15-30-0681Gfywjffj distribution width Auto (Bld) [Entitic vol] 44.69 %High0.00-20.00Kettering HealthMonocytes [#/volume] in Blood by Automated countOrdered By: Erin Guevara on 49-97-8718Hhbhfffjo (Bld) [#/Vol]0.2 10*3/uLNormal0.0-0.8K[facility] HealthComment on above:Performed By: #### SCAN CBC, CMP ####[place] [address] USAMonocytes/100 leukocytes in Blood by Automated countOrdered By: Erin Guevara on 37-22-8346Cmutcyxvr/100 WBC (Bld)10.0 % Normal.[facility] HealthComment on above:Performed By: #### SCAN CBC, CMP ####[facility] [address] [place] [address] USAMucus [Presence] in Urine by AutomatedOrdered By: Erin Guevara on 84-73-8446Jcfpf Auto Ql (U)Rare [LPF][facility] Neutrophils [#/volume] in Blood by Automated countOrdered By: Erin Guevara on 44-44-0039Kulwwkflkuf (Bld) [#/Vol]0.6 10*3/uLLow1.8-7.7FAshtabula General HospitalComment on above:Performed By: #### SCAN CBC, CMP ####[facility] [address] [place] [address] USANeutrophils/100 leukocytes in Blood by Automated countOrdered By: Erin Guevara on 12-27-2024 Neutrophils/100 WBC (Bld)33.3 %Normal.[facility]tering HealthComment on above:Performed By: #### SCAN CBC, CMP ####[facility] [address] [place] [address] USANitrite Test strip Ql (U)Ordered By: Erin Guevara on 52-25-9084Aksvfby Ql (U)NegativeNegativeKettering HealthNo Panel InformationOrdered By: Margarito Rajan on 56-47-0545Htizubc path reviewKettering HealthNo Panel InformationOrdered By: SAUL BRIDGESP on .Kettering HealthNucleated erythrocytes [Presence] in Blood by Automated countOrdered By: Erin Guevara on 12-27-2024 Nucleated RBC Auto Ql (Bld)0.2 /100{WBC}0-0.5FAshtabula General Hospital Ovalocytes [Presence] in Blood by Light microscopyOrdered By: Erin Guevara on 97-29-2950Otignzrpui LM Ql (Bld)SlightKettering HealthPartial Thromboplastin Timeon 30-74-3446aYVC Coag (Bld) [Time]26.2 xQikkdm70.1-36.5The [facility] Physician GroupComment on above:Result Comment: A hematocrit value greater than 55% may lead to inaccurate results in coagulation testing. Patients having hematocrit values >55% require a special collection tube for coagulation studies. Please contact the laboratory at [phone] for redraw instructions. Performed By: #### PATH SLIDE REV, PT, FIB-C, PTT ####[facility] [facility] [place] [address] [facility]ologist Slide Reviewon 12-27-2024 Pathologist Slide ReviewOrdered Path ReviewAdventHealth [facility] of [facility] Comment on above:Result Comment: PERFORMED BY:[address] [place], [place] [phone] MEDICAL DIRECTORELAINE CHAUDHARY M.D.Performed By: #### PATH SLIDE REV, PT, FIB-C, PTT ####[address] [place] [address] [facility] Pathology study report documentOrdered By: Aldair Blake on 62-45-8510Ptjyqxmvf study [facility] Other Platelet Pheresis LRon 96-13-7093Bwkcthar Pheresis LR TRANSFUSED 12/29/24 [facility] Physician GroupPlatelet adequacy [Presence] in Blood by Light microscopyOrdered By: Erin Guevara on 12-27-2024 Platelets LM Ql (Bld)DecreasedDoctors HospitalPlatelet mean volume [Entitic volume] in Blood by Automated countOrdered By: Erin Guevara on 08-98-7893Xyccuntu mean volume (Bld) [Entitic vol]12.1 fLHigh6.3-10.7 [facility] HealthComment on above:Performed By: #### SCAN CBC, CMP ####[address] [place] [address] [facility] Platelet morphology finding [Identifier] in BloodOrdered By: Erin Guevara on 68-51-9924Gkmgsyib morphology finding Nom (Bld)NormalDoctors HospitalPlatelets [#/volume] in Blood by Automated countOrdered By: Erin Guevara on 74-02-0413Vvptfwwwx (Bld) [#/Vol]5 10*3/uLOff scale vis851-784 [facility] HealthComment on above:Result Comment: Critical value result called at 0545 on 12/27/24Performed By: #### SCAN CBC, CMP ####[address] [address] USAPoikilocytosis [Presence] in Blood by Light microscopyOrdered By: Erin Guevara on 12-27-2024 Poikilocytosis LM Ql (Bld)[facility] CenterPolychromasia [Presence] in Blood by Light microscopyOrdered By: Erin Guevara on 12-27-2024 Polychromasia LM Ql (Bld)[facility] CenterPotassium [Moles/volume] in Serum or PlasmaOrdered By: PROVIDER TEMP on 12-27-2024 Potassium [Moles/Vol]4.0 mmol/LNormal3.5-5.1FAshtabula General Hospital Comment on above:Performed By: #### SCAN CBC, CMP ####[address] [address] USAProtein [Mass/volume] in Serum or PlasmaOrdered By: PROVIDER TEMP on 36-93-0806Frliwcd [Mass/Vol]5.9 g/dLLow 6.4-8.9[facility] HealthComment on above:Performed By: #### SCAN CBC, CMP ####[address] [address] USAProtein [Mass/volume] in Urine by Test stripOrdered By: Erin Guevara on 64-51-8689Uthhwlq (U) [Mass/Vol]30 mg/dLNormalNegativeKettering HealthComment on above:Order Comment: Name Collection Type:: Clean-Voided MidstreamPerformed By: #### CUU, ADDONUAPLUS ####[address] [place], [place] USAProthrombin time (PT)Ordered By: Margarito Rajan on 33-39-5959IK Coag (PPP) [Time]15.1 sHigh9.0-12.9[facility] HealthComment on above:Result Comment: A hematocrit value greater than 55% may lead to inaccurate results in coagulation testing. Patients having hematocrit values >55% require a special collection tube for coagulation s benjamin. Please contact the laboratory at [phone] for redraw instructions. Performed By: #### PATH SLIDE REV, PT, FIB-C, PTT ####[address] [address] USAScan and CBCon 29-76-2018Bchg Corpuscular HGB Conc33.5 g/gYBlmwns74.0-35.0The [facility] Physician GroupComment on above:Performed By: #### SCAN CBC, CMP ####[address] [address] USAMonocytes/100 WBC (Bld)44.69 %High 0.00-20.00The [facility] Physician GroupComment on above:Result Comment: For adults in ED, MDW > 20.0 may be associated with a higher risk of sepsis during the first 12 hrs of hospital admission The predictive value of MDW for identifying sepsis in patients with hematological abnormalities has not been establishedPerformed By: #### SCAN CBC, CMP ####[address] [address] USANRBC%0.2 /100{WBC}Normal0-0.5The [facility] Physician GroupComment on above:Performed By: #### SCAN CBC, CMP ####[address] [address] [place] OvalocytesSlightNoBlowing Rock Hospital Physician GroupComment on above:Performed By: #### SCAN CBC, CMP ####[address] [address] USAPlatelet EstimateDecreasedNormalAdventHealth Heart of Florida Physician GroupComment on above:Performed By: #### SCAN CBC, CMP ####[address] [address] USAPlatelet Morphology NormalNormalAdventHealth Heart of Florida Physician GroupComment on above:Result Comment: PERFORMED BY:[address] [place], [place] [phone] MEDICAL LEESA CHAUDHARY M.D.Performed By: #### SCAN CBC, CMP ####[facility] [place] [address] USAPoikilocytosisSUNC Health Blue Ridge Physician GroupComment on above:Performed By: #### SCAN CBC, CMP ####[address] [address] USAPolychromasiaSUNC Health Blue Ridge Physician GroupComment on above:Performed By: #### SCAN CBC, CMP ####[address] [address] USAWhite Blood Count1.8 [CFU]/mLLow3.8-11.6The [facility] Physician GroupComment on above:Performed By: #### SCAN CBC, CMP ####[address] [address] USASerum globulin measurement by calculation (mass/volume)Ordered By: PROVIDER TEMP on 66-12-9092Aucjuaoy (S) [Mass/Vol]2.8 g/dLNoSelect Medical Specialty Hospital - YoungstownComment on above:Performed By: #### SCAN CBC, CMP ####[address] [address] USASerum or plasma albumin/globulin mass ratioOrdered By: PROVIDER TEMP on 12-27-2024 Albumin/Globulin [Mass ratio]1.1 {ratio}[facility] Comment on above:Performed By: #### SCAN CBC, CMP ####[address] [address] USASerum or plasma anion gap determinationOrdered By: PROVIDER TEMP on 46-29-0550Bgnza gap [Moles/Vol]12.7 mmol/LNormal6.0-15.0[facility] HealthComment on above:Performed By: #### SCAN CBC, CMP ####[address] [address] USASodium [Moles/volume] in Serum or PlasmaOrdered By: PROVIDER TEMP on 34-27-1014Gyqspj [Moles/Vol]131 mmol/JQme764-246AecexjocgKettering HealthComment on above:Performed By: #### SCAN CBC, CMP ####[address] [place] [address] [facility] Specific gravity Test strip (U) [Rel density]Ordered By: Erin Guevara on 88-61-4795Bbarpggv gravity (U) [Rel density]1.0191.001-1.030[facility] HealthType and Screenon 80-28-3801JMP and Rh group Nom (Bld)Blood group A Rh(D) positiveNormHCA Florida [facility] Physician [facility] CenterComment on above:Order Comment: communicated to JYOTSNA WU Transfuse now? Y Number of units to transfuse now? [address]33) Transfuse now? Y Number of units to transfuse now? 1Result Comment: PERFORMED BY:[facility] [place], [place] [phone] MEDICAL DIRECTORELAINE CHAUDHARY M.D.US renal BI on 48-70-2882CS renal BINormalThe Wernersville State HospitalUrea nitrogen [Mass/volume] in Serum or PlasmaOrdered By: SAUL GONZALES on 43-94-4962Stsq nitrogen [Mass/Vol]38 mg/dLUnited Hospital Center7-25[facility] HealthComment on above:Performed By: #### SCAN CBC, CMP ####[address] [place] [address] USAUrine Cultureon 61-00-6435Eeehndzv identified Cx Nom (U)Urine Culture Results >100,000 col/ml Mixed Bacterial Skin Contaminants 2 Days PERFORMED BY: [facility] [address] [place] [address] PATHOLOGIST INBOUND TELEMARKETER ELAINE CHAUDHARY M.D.NormalThe [facility] Physician [facility] CenterComment on above: Performed By: #### CUU, ADDONUAPLUS ####[address] USAUrobilinogen Test strip (U) [Mass/Vol]Ordered By: Erin Guevara on 68-74-4719Nxrzpcvbjaze (U) [Mass/Vol]Normal mg/dLNormal [facility] HealthX-ray reportOrdered By: Domenico Brown on 17-02-1319Xhujd reportKettering HealthXR chest 2V*on 12-27-2024 XR chest 2V*NormalThe [facility] Physician GroupaPTT in Platelet poor plasma by Coagulation assayOrdered By: Margarito Rajan on 96-46-8361jMQA Coag (PPP) [Time] 26.2 s25.1-36.5FAshtabula General HospitalpH of Urine by Test stripOrdered By: Erin Guevara on 89-00-6941pR (U)5.5 [pH]Normal5.0-9.0[facility] HealthComment on above:Order Comment: Name Collection Type:: Clean- Voided MidstreamPerformed By: #### CUU, ADDONUAPLUS ####[address] [place], [place] [facility]ICAlanine aminotransferase [Enzymatic activity/volume] in Serum or PlasmaOrdered By: Roxane Bills on 39-70-3529VGT [Catalytic activity/Vol]49 U/LNormal7-52[facility] HealthComment on above:Performed By: #### CMP, DIFF CBC ####[address] [place] [address] USAAlbumin [Mass/volume] in Serum or Plasma by Bromocresol green (BCG) dye binding methoOrdered By: Roxane Bilsl on 36-97-3719Odvbrfr BCG dye [Mass/Vol]3.1 g/dLLow3.5-5.7FAshtabula General HospitalAlkaline phosphatase [Enzymatic activity/volume] in Serum or Plasma Ordered By: Roxane Bills on 64-65-3549EYO [Catalytic activity/Vol]110 U/EVaif80-579 [facility] HealthComment on above:Performed By: #### CMP, DIFF CBC ####[address] [place] [address] [facility] Aspartate aminotransferase [Enzymatic activity/volume] in Serum or PlasmaOrdered By: Roxane Bills on 15-91-6484KBY [Catalytic activity/Vol]29 U/FWfvlqn35-10 [facility] HealthComment on above:Performed By: #### CMP, DIFF CBC ####[facility] [place] [address] [place] Band form neutrophils/100 leukocytes in Blood by Manual countOrdered By: Roxane Snaju on 16-34-2211Epoi form neutrophils/100 WBC (Bld)4 %Normal0-5FAshtabula General HospitalComment on above:Performed By: #### CMP, DIFF CBC ####[address] [address] [place] Basophils Auto (Bld) [#/Vol]Ordered By: Roxane Sanju on 97-99-3723Bnfonofmj (Bld) [#/Vol]N/[facility] HospitalBasophils/100 WBC Auto (Bld)Ordered By: Roxane Sanju on 83-54-9696Rcruxerqo/100 WBC (Bld)N/[facility] HospitalBilirubin.total [Mass/volume] in Serum or PlasmaOrdered By: Roxane Bills on 20-22-2905Bjurwlefk [Mass/Vol]0.6 mg/dLNormal0.3-1.0[facility] HealthComment on above:Performed By: #### CMP, DIFF CBC ####[address] USACalcium [Mass/volume] in Serum or PlasmaOrdered By: Roxane Bills on 00-67-8727Lfespoe [Mass/Vol]7.5 mg/dLLow 8.6-10.3FAshtabula General HospitalComment on above:Performed By: #### CMP, DIFF CBC ####[address] USACarbon dioxide, total [Moles/volume] in Serum or PlasmaOrdered By: Roxane Bills on 44-14-2664FA2 [Moles/Vol]35.1 mmol/LHigh21.0-31.0[facility] HealthComment on above:Performed By: #### CMP, DIFF CBC ####[address] USAChloride [Moles/volume] in Serum or PlasmaOrdered By: Roxane Bills on 92-94-8231Dgalprpj [Moles/Vol]94 mmol/GQhi83-836PaalddzbzKettering HealthComment on above: Performed By: #### CMP, DIFF CBC ####[facility] [place] [address] USAComprehensive Metabolic Panelon 30-25-8395Lfebene [Mass/Vol]3.1 g/dLLow3.5-5.7The [facility] Physician GroupComment on above: Performed By: #### CMP, DIFF CBC ####[address] [place] [address] USACreatinine Clr Calc Sxlejrni99.13NoBlowing Rock Hospital Physician GroupComment on above:Result Comment: PERFORMED BY:[address] [place], [place] [phone] MEDICAL DIRECTOREALINE CHAUDHARY M.D.Performed By: #### CMP, DIFF CBC ####[address] [place] [address] USAGFR/1.73 sq M.predicted MDRD (S/P/Bld) [Vol rate/Area]21.622 mL/min/{1.73_m2}NormalThe [facility] Physician [facility] Medical CenterComment on above:Performed By: #### CMP, DIFF CBC ####[address] [address] [facility] Comprehensive metabolic panelon 61-60-0355Hsxtzwe [Mass/Vol]3.1 g/dLLow3.5 - 5.7 g/dLNOMS HealthcareAlbumin/Globulin [Mass [...] - 1.20 mg/dL NOMS HealthcareCREATININE CLR CALC LCZFSHOG80.13NOMS HealthcareGFR/1.73 sq M.predicted MDRD (S/P/Bld) [Vol rate/Area]21.622 mL/min/{1.73_m2}[facility] Globulin (S) [Mass/Vol]2.5 g/dLNOWI HealthcareGlucose [Mass/Vol]82 mg/dL70 - 100 mg/dLNOWI HealthcareComment on above:Random Glucose Reference Range is dependent on time and content of last meal. Glucose of more than 200 mg/dL in a nonstressed, ambulatory subject supports the diagnosis of Diabetes Mellitus. ADA recommended reference range Interpretation and review of laboratory resultsAbnormalNOMS HealthcarePotassium [Moles/Vol]4.2 mmol/L3.5 - 5.1 mmol/LNOMS HealthcareProtein [Mass/Vol]5.6 g/dL Low6.4 - 8.9 g/dLNOWI HealthcareSodium [Moles/Vol]136 mmol/L136 - 145 mmol/LNOMS HealthcareUrea nitrogen [Mass/Vol]32 mg/dLHigh7 - 25 mg/dLNOJohn J. Pershing VA Medical CenterNOWI HealthcareCreatinine [Mass/volume] in Serum or PlasmaOrdered By: Roxane Bills on 04-27-6279Rsmojcyfng [Mass/Vol]2.41 mg/dLHigh0.60-1.20[facility] HealthComment on above:Performed By: #### CMP, DIFF CBC ####[facility] [address] [place] [address] USADiff and CBCon 28-15-8055Ateh Corpuscular HGB Conc32.4 g/yCIysxyx04.0-35.0The [facility]ersville State HospitalComment on above:Performed By: #### CMP, DIFF CBC ####[facility] [place] [address] USAPlatelet EstimateDecreasedNormalNormal The [facility]lands Physician GroupComment on above:Performed By: #### CMP, DIFF CBC ####[address] [address] [place] Platelet MorphologyNormalNormalNormalThSt. Luke's [facility] Physician [facility] Medical CenterComment on above:Result Comment: PERFORMED BY:[address] [place], [place] [phone] MEDICAL DIRECTORELAINE CHAUDHARY M.D.Performed By: #### CMP, DIFF CBC ####[address] [address] USAReactive Lymphocytes2 %Normal0-12The [facility] Physician [facility] Medical CenterComment on above:Performed By: #### CMP, DIFF CBC ####[address] [address] USAWhite Blood Count2.8 [CFU]/mLLow3.8-11.6The [facility] Physician GroupComment on above:Performed By: #### CMP, DIFF CBC ####[address] [address] USAEosinophils Auto (Bld) [#/Vol]Ordered By: Roxane Bills on 12-26-2024 Eosinophils (Bld) [#/Vol]N/AFAshtabula General HospitalEosinophils/100 WBC Auto (Bld)Ordered By: Roxane Bills on 24-90-5881Lddrvptmwpf/100 WBC (Bld)N/A [facility] HealthEosinophils/100 leukocytes in Blood by Manual countOrdered By: Roxane Bills on 54-63-0889Cxkpzvmfmdk/100 WBC (Bld)29 %High1-3 [facility] HealthComment on above:Performed By: #### CMP, DIFF CBC ####[address] [address] [place] Erythrocyte distribution width [Ratio] by Automated countOrdered By: Roxane Bills on 99-75-5685Pasxghbeirz distribution width (RBC) [Ratio]15.3 %Oqcyfc48.9-15.3 [facility] HealthComment on above:Performed By: #### CMP, DIFF CBC ####[facility] [place] [address] [place] Erythrocyte morphology finding [Identifier] in BloodOrdered By: Roxane Bills on 08-96-3572IIK morphology finding Nom (Bld)NormalNormalNormalKettering HealthComment on above:Performed By: #### CMP, DIFF CBC ####[address] [place] [address] USAErythrocytes [#/volume] in Blood by Automated countOrdered By: Roxane Bills on 83-13-1966XID (Bld) [#/Vol]4.16 10*6/uLNormal3.60-5.00[facility] HealthComment on above:Performed By: #### CMP, DIFF CBC ####[address] [place] [address] USAGlomerular filtration rate [Volume Rate/Area] in Serum, Plasma or Blood by CreatinineOrdered By: Roxane Bills on 46-75-6382Glcibfvveb filtration rate [Volume Rate/Area] in Serum, Plasma or Blood by Ygqtrzeofb08.622 mL/MinKettering HealthGlucose [Mass/volume] in Serum or PlasmaOrdered By: Roxane Bills on 25-85-2685Gregwuy [Mass/Vol]82 mg/tAIwsssj07-879UrigsjvykKettering HealthComment on above: Result Comment: Random Glucose Reference Range is dependent on time and content of last meal. Glucose of more than 200 mg/dL in a nonstressed, ambulatory subject supports the diagnosis of Diabetes Mellitus. ADA recommended reference rangePerformed By: #### CMP, DIFF CBC ####[address] [place] [address] USAHematocrit [Volume Fraction] of Blood by Automated countOrdered By: Roxane Bills on 10-50-2912Pinyxnlsnq (Bld) [Volume fraction]37.0 %Dnpnng64.0-46.4FAshtabula General HospitalComment on above: Performed By: #### CMP, DIFF CBC ####[address] [place] [address] USAHemoglobin [Mass/volume] in BloodOrdered By: Roxane Bills on 09-06-1974Hptohjyhhg (Bld) [Mass/Vol]12.0 g/vYXkxhfe77.8-15.4FAshtabula General HospitalComment on above:Performed By: #### CMP, DIFF CBC ####[facility] [place] [address] [place] Leukocytes [#/volume] corrected for nucleated erythrocytes in Blood by Automated counOrdered By: Roxane Bills on 29-55-2648OEE corrected for nucl RBC Auto (Bld) [#/Vol]2.8 10*3/uLLow3.8-11.6FAshtabula General HospitalLeukocytes [#/volume] in Blood by Automated countOrdered By: Roxane Bills on 06-09-5001EJI (Bld) [#/Vol]2.8 10*3/uLLow3.8-11.6FAshtabula General HospitalComment on above:Performed By: #### CMP, DIFF CBC ####[address] [place] [id number] USALymphocytes Auto (Bld) [#/Vol]Ordered By: Roxane Bills on 20-43-8219Ntgzkfkemxw (Bld) [#/Vol]N/[facility] Lymphocytes/100 WBC Auto (Bld)Ordered By: Roxane Bills on 08-83-0013Edkzvsyfehg/100 WBC (Bld)N/[facility] HospitalLymphocytes/100 leukocytes in Blood by Manual countOrdered By: Roxane Bills on 91-68-4158Prptfzimtlw/100 WBC (Bld)23 %Xhbyce57-12FiqczjtnmKettering HealthComment on above:Performed By: #### CMP, DIFF CBC ####[address] [address] USAMCH [Entitic mass] by Automated countOrdered By: Roxane Bills on 31-67-6316CQY (RBC) [Entitic mass]28.9 yiAzpuin20.7-34.3FAshtabula General HospitalComment on above:Performed By: #### CMP, DIFF CBC ####[facility] [place] [address] [facility] CITYHC Auto (RBC) [Mass/Vol]Ordered By: Roxane Bills on 95-66-1925NYJW (RBC) [Mass/Vol] 32.4 g/dL32.0-35.0[facility] HealthMCV [Entitic volume] by Automated countOrdered By: Roxane Bills on 37-29-7010HXU (RBC) [Entitic vol]89.0 fL Zwkiqr53-209DpstcjvrxKettering HealthComment on above:Performed By: #### CMP, DIFF CBC ####[address] [place] [address] [facility]ICMonocytes Auto (Bld) [#/Vol]Ordered By: Roxane Bills on 12-26-2024 Monocytes (Bld) [#/Vol]N/[facility] HospitalMonocytes/100 WBC Auto (Bld)Ordered By: Roxane Bills on 76-55-3165Lpimehsvp/100 WBC (Bld)N/[facility] HospitalMonocytes/100 leukocytes in Blood by Manual countOrdered By: Roxane Bills on 28-31-6948Esipzkvxg/100 WBC (Bld)7 %Normal2-11[facility] HealthComment on above:Performed By: #### CMP, DIFF CBC ####[address] [place] Neutrophils Auto (Bld) [#/Vol]Ordered By: Roxane Bills on 82-35-5519Ptyfghzwqgb (Bld) [#/Vol]N/[facility] HospitalNeutrophils/100 WBC Auto (Bld) Ordered By: Roxane Bills on 54-62-6962Tojsmvllzyu/100 WBC (Bld)N/[facility] HospitalNo Panel InformationOrdered By: Roxane Bills on 12-26-2024 25.13[facility] HealthNucleated erythrocytes [Presence] in Blood by Automated countOrdered By: Roxane Bills on 90-29-8637Eihdrnslx RBC Auto Ql (Bld)N/[facility] HospitalPlatelet adequacy [Presence] in Blood by Light microscopyOrdered By: Roxane Bills on 37-82-4757Pqyakgyuh LM Ql (Bld) DecreasedNoSelect Medical Specialty Hospital - YoungstownPlatelet mean volume [Entitic volume] in Blood by Automated countOrdered By: Roxane Bills on 45-94-6472Ujncwhbm mean volume (Bld) [Entitic vol]12.0 fLHigh6.3-10.7FAshtabula General HospitalComment on above:Performed By: #### CMP, DIFF CBC ####[id number] USAPlatelet morphology finding [Identifier] in BloodOrdered By: Roxane Bills on 68-57-1286Huwbdkgn morphology finding Nom (Bld)NormalNormUC HealthPlatelets [#/volume] in Blood by Automated countOrdered By: Roxane Bills on 12-26-2024 Platelets (Bld) [#/Vol]4 10*3/uLOff scale meb212-372BkptpaxsoKettering HealthComment on above:Result Comment: Critical value result called at 1126 on 12/26/24Performed By: #### CMP, DIFF CBC ####[address] [address] USAPotassium [Moles/volume] in Serum or Plasma Ordered By: Roxane Bills on 55-59-2832Poqicpitu [Moles/Vol]4.2 mmol/LNormal3.5-5.1 [facility] HealthComment on above:Performed By: #### CMP, DIFF CBC ####[address] [address] [place] Protein [Mass/volume] in Serum or PlasmaOrdered By: Roxane Bills on 12-26-2024 Protein [Mass/Vol]5.6 g/dLLow6.4-8.9[facility] HealthComment on above:Performed By: #### CMP, DIFF CBC ####[address] [address] USASegmented neutrophils/100 leukocytes in Blood by Manual countOrdered By: Roxane Bills on 10-95-4030Riukgstdi neutrophils/100 WBC (Bld)36 %Yzb35-12MynutguuuKettering HealthComment on above:Performed By: #### CMP, DIFF CBC ####[address] [address] USASerum globulin measurement by calculation (mass/volume)Ordered By: Roxane Bills on 87-74-8429Xkrcddmw (S) [Mass/Vol]2.5 g/dLNormalKettering HealthComment on above:Performed By: #### CMP, DIFF CBC ####[address] USASerum or plasma albumin/globulin mass ratioOrdered By: Roxane Bills on 28-02-2667Ryatpss/Globulin [Mass ratio]1.2 {ratio}Doctors HospitalComment on above: Performed By: #### CMP, DIFF CBC ####[address] USASerum or plasma anion gap determinationOrdered By: Roxane Bills on 47-11-3564Kakdc gap [Moles/Vol]11.1 mmol/LNormal6.0-15.0[facility] HealthComment on above:Performed By: #### CMP, DIFF CBC ####[address] USASodium [Moles/volume] in Serum or PlasmaOrdered By: Roxane Bills on 97-83-2658Lctuvj [Moles/Vol]136 mmol/VFmclzc751-672HshonegydKettering HealthComment on above:Performed By: #### CMP, DIFF CBC ####[address] USAUrea nitrogen [Mass/volume] in Serum or Plasma Ordered By: Roxane Bills on 09-81-3287Njdq nitrogen [Mass/Vol]32 mg/dLHigh7-25 [facility] HealthComment on above:Performed By: #### CMP, DIFF CBC ####[address] [place] Variant lymphocytes/100 WBC Manual cnt (Bld)Ordered By: Roxane Bills on 12-26-2024 Variant lymphocytes/100 WBC (Bld)2 %0-12[facility] Appearance of UrineOrdered By: Roxane Bills on 05-17-3828Pytcgnxjbu (U)ClearNormal ClearKettering HealthComment on above:Order Comment: Name Collection Type:: Clean-Voided MidstreamPerformed By: #### UA ####[address] [address] USABilirubin Test strip Ql (U)Ordered By: Roxane Bills on 36-14-8853Imcpztyjn Ql (U)NegativeNegative [facility] HealthBlood Cultureon 47-02-2409Ovqqryje identified Cx Nom (Bld)NO GROWTH 5 DAYS PERFORMED BY: [place] [address] PATHOLOGIST INBOUND TELEMARKETER ELAINE CHAUDHARY M.D.[facility] Physician GroupComment on above: Performed By: #### CUBLD ####[address] [address] USABacteria identified Cx Nom (Bld)NO GROWTH 5 DAYS PERFORMED BY: [facility] [address] [place] [address] PATHOLOGIST INBOUND TELEMARKETER ELAINE CHAUDHARY M.D.[facility] Physician [facility] CenterComment on above: Performed By: #### CUBLD ####[address] [address] USAColor of Urine by AutoOrdered By: Roxane Bills on 38-19-5475Wxlzz (U)Light-yellowNormalYMercy Health – The Jewish Hospital Comment on above:Order Comment: Name Collection Type:: Clean-Voided Midstream Performed By: #### UA ####[address] [address] USAGlucose [Mass/volume] in Urine by Test stripOrdered By: Roxane Bills on 47-55-8215Dvvvxdr Test strip (U) [Mass/Vol]>=1000 mg/dLHigh NormalKettering HealthHemoglobin Test strip Ql (U)Ordered By: Roxane Bills on 54-59-6168Zjimwrfhnp Ql (U)NegativeNegativeKettering HealthKetones [Presence] in Urine by Test stripOrdered By: Roxane Bills on 68-08-5214Fqsyavx Ql (U)NegativeNormalNegAdams County Hospital Comment on above:Order Comment: Name Collection Type:: Clean-Voided Midstream Performed By: #### UA ####[address] [place] [address] USALeukocyte esterase [Presence] in Urine by Test strip Ordered By: Roxane Bills on 39-87-0123Qcwebjuuh esterase Test strip Ql (U)Negative NormalNegAdams County HospitalComment on above:Order Comment: Name Collection Type:: Clean-Voided MidstreamPerformed By: #### UA ####[address] [address] USANitrite Test strip Ql (U)Ordered By: Roxane Bills on 10-56-4347Wjcellt Ql (U)NegativeNegAdams County HospitalNo Panel InformationOrdered By: Roxane Bills on 12-21-2024 NO GROWTH 5 [facility] HospitalNO GROWTH 5 [facility] HospitalNO GROWTH 5 [facility] HospitalNO GROWTH 5 [facility] HospitalProtein Test strip (U) [Mass/Vol] Ordered By: Roxane Bills on 53-90-3265Fzwkrpk (U) [Mass/Vol]NegativeNegative Grant Hospitalpecific gravity Test strip (U) [Rel density] Ordered By: Roxane Bills on 13-06-0930Cnoyucmz gravity (U) [Rel density]1.010 1.001-1.030[facility] HealthUrinalysison 12-21-2024 Bilirubin,UrineNegativeNormalNegativeThe [facility] Hospital Physician GroupComment on above:Order Comment: Name Collection Type:: Clean-Voided MidstreamPerformed By: #### UA ####[address] [address] USAGlucose Ql (U)>=NormalNormalThe [facility] Physician GroupComment on above: Order Comment: Name Collection Type:: Clean-Voided MidstreamPerformed By: #### UA ####[address] [address] [place] Nitrite,UrineNegativeNormalNegativeGulf Breeze Hospital Physician GroupComment on above:Order Comment: Name Collection Type:: Clean-Voided MidstreamPerformed By: #### UA ####[address] [address] USAOccult Blood,UrineNegativeNormalNegativeThe [facility] Physician GroupComment on above:Order Comment: Name Collection Type:: Clean-Voided MidstreamResult Comment: PERFORMED BY:[address] [place], [place] [phone] MEDICAL LEESA CHAUDHARY M.D.Performed By: #### UA ####[place] [id number] USAProtein,UrineNegativeNormalNegativeThe [facility] Physician GroupComment on above:Order Comment: Name Collection Type:: Clean-Voided MidstreamPerformed By: #### UA ####[place] [address] USASpecificy [place],Urine1.129Rfsewr7.001-1.030The [facility] Physician GroupComment on above:Order Comment: Name Collection Type:: Clean-Voided MidstreamPerformed By: #### UA ####[place] [id number] USAUrobilinogen,UrineNormalNormalNormalThe [facility] Physician GroupComment on above:Order Comment: Name Collection Type:: Clean- Voided MidstreamPerformed By: #### UA ####[place] [id number] USAUrinalysis, manual onlyon 73-84-6471Dqxsikhfqj (U)ClearClearNOMS HealthcareBILIRUBIN,URINENegativeNegativeNOMS HealthcareColor (U)Light-YellowYellowNOMS HealthcareGlucose Ql (U)mg/dLNormal mg/dLNOMS HealthcareKetones Ql (U)NegativeNegativeNOMS HealthcareLeukocyte esterase Test strip Ql (U)NegativeNegativeNOMS HealthcareNITRITE,URINENegativeNegativeNOMS HealthcareOCCULT BLOOD,URINENegativeNegativeNOMS HealthcarepH (U)5.5 [pH]5.0 - 9.0NOMS HealthcarePROTEIN,URINENegativeNegative mg/dLNOWI HealthcareSPECIFICY GRAVITY,URINE1.011.001 - 1.030NOMS HealthcareUROBILINOGEN,URINENormalNormal mg/dLNOWI HealthcareName Collection Type:: Clean-Voided MidstreamHOLY REDEEMER [facility] HealthcareUrobilinogen Test strip (U) [Mass/Vol]Ordered By: Roxane Bills on 98-11-0034Xmymxxtgvtcf (U) [Mass/Vol]Normal mg/dLNormUC HealthXR chest 2V*on 52-61-9183CP chest 2V*NormalThe [facility] Physician GrouppH of Urine by Test stripOrdered By: Roxane Bills on 12-68-5940bW (U)5.5 [pH] Normal5.0-9.0K[facility]tering HealthComment on above:Order Comment: Name Collection Type:: Clean-Voided MidstreamPerformed By: #### UA ####[place] [id number] [facility]ICAlanine aminotransferase [Enzymatic activity/volume] in Serum or PlasmaOrdered By: Roxane Bills on 42-75-2128XQI [Catalytic activity/Vol]86 U/LHigh7-52K[facility]tering HealthComment on above:Performed By: #### CBC, CMP ####[place] [address] USAAlbumin [Mass/volume] in Serum or Plasma by Bromocresol green (BCG) dye binding methoOrdered By: Roxane Bills on 48-26-1860Zxmtrjs BCG dye [Mass/Vol]3.9 g/dL3.5-5.7FAshtabula General HospitalAlkaline phosphatase [Enzymatic activity/volume] in Serum or PlasmaOrdered By: Roxane Bills on 70-34-7209ATL [Catalytic activity/Vol]145 U/LHigh 34-104Kettering HealthComment on above:Performed By: #### CBC, CMP ####[place] [id number] [facility] Aspartate aminotransferase [Enzymatic activity/volume] in Serum or PlasmaOrdered By: Roxane Bills on 80-36-3215RQI [Catalytic activity/Vol]35 U/PLaoejv52-36 [facility] HealthComment on above:Performed By: #### CBC, CMP ####[address] [address] [place] Basophils [#/volume] in Blood by Automated countOrdered By: Roxane Bills on 66-40-1168Bvxcbutsp (Bld) [#/Vol]0.1 10*3/uLNormal0.0-0.2FAshtabula General HospitalComment on above:Result Comment: PERFORMED BY:[address] [place], [place] [phone] MEDICAL DIRECTORELAINE CHAUDHARY M.D.Performed By: #### CBC, CMP ####[address] [address] USABasophils/100 leukocytes in Blood by Automated countOrdered By: Roxane Bills on 36-48-2145Dsqwtecuy/100 WBC (Bld)1.4 %Normal.Kettering HealthComment on above:Performed By: #### CBC, CMP ####[address] [address] USABilirubin.total [Mass/volume] in Serum or PlasmaOrdered By: Roxane Bills on 43-34-5827Auxvnhrhi [Mass/Vol]0.4 mg/dLNormal0.3-1.0K[facility]tering HealthComment on above:Performed By: #### CBC, CMP ####[address] [address] USACBC W Auto Differential panel (Bld)on 77-65-6607Qaetvwuau (Bld) [#/Vol]0.1 10*3/uL0.0 - 0.2 10*3/uLNOMS HealthcareBasophils/100 WBC Manual cnt (Syn fld)1.4 %.NOMS HealthcareEosinophils (Bld) [#/Vol]0.3 10*3/uL0.0 - 0.45 10*3/uLNOMS Healthcare Eosinophils/100 WBC Manual cnt (Syn fld)5.3 %.[facility] HealthcareErythrocyte distribution width (RBC) [Ratio]15.3 %11.9 - 15.3 %NOM HealthcareHematocrit (Bld) [Volume fraction]42 %34.0 - 46.4 %[facility] HealthcareHemoglobin (Bld) [Mass/Vol]13.8 g/dL11.8 - 15.4 g/dLUINTAH BASIN MEDICAL [facility] HealthcareInterpretation and review of laboratory resultsAbnormalUINTAH [facility] HealthcareLymphocytes (Bld) [#/Vol]0.6 10*3/uLLow 1.00 - 4.8 10*3/uLNOMS HealthcareLymphocytes/100 WBC Manual cnt (Syn fld)9.7 %. [facility] HospitalMCH (RBC) [Entitic mass]29.1 pg24.7 - 34.3 pgCarondelet HealthHC (RBC) [Mass/Vol]32.8 g/dL32.0 - 35.0 g/dLSac-Osage HospitalMCV (RBC) [Entitic vol] 88.8 fL80 - 100 fLUINTAH BASIN MEDICAL CENTER HealthcareMonocytes (Bld) [#/Vol]0.3 10*3/uL0.0 - 0.8 10*3/uLNOMS HealthcareMonocytes+Macrophages/100 WBC Manual cnt (Syn fld)5.2 %. [facility] HealthcareNeutrophils (Bld) [#/Vol]5.2 10*3/uL1.8 - 7.7 10*3/uLNOMS HealthcareNeutrophils/100 WBC Manual cnt (Syn fld)78.4 %.[facility] HealthcareNRBC0.3 /100{WBC}0 - 0.5 /100{WBC}[facility] HealthcarePlatelet mean volume (Bld) [Entitic vol]9 fL6.3 - 10.7 fLNOWI HealthcarePlatelets (Bld) [#/Vol]130 10*3/qPRsm299 - 450 10*3/uLNOMS HealthcareRBC LM.HPF (Urine sed) [#/Area]4.73 10*6/uL3.60 - 5.00 10*6/uLNOMS HealthcareWBC (Bld) [#/Vol]6.6 10*3/uL3.8 - 11.6 10*3/uLNOMS HealthcareWBC LM.HPF (Urine sed) [#/Area]6.6 [CFU]/mL3.8 - 11.6 [CFU]/mLNOMS HealthcareNOMS HealthcareCalcium [Mass/volume] in Serum or PlasmaOrdered By: Roxane Bills on 00-71-1490Fehrwfz [Mass/Vol]8.8 mg/dLNormal8.6-10.3FAshtabula General HospitalComment on above:Performed By: #### CBC, CMP ####[place] [address] USACarbon dioxide, total [Moles/volume] in Serum or PlasmaOrdered By: Roxane Bills on 09-42-4450PP3 [Moles/Vol]37.0 mmol/LHigh21.0-31.0K[facility]tering HealthComment on above:Performed By: #### CBC, CMP ####[place] [address] USAChloride [Moles/volume] in Serum or PlasmaOrdered By: Roxane Bills on 04-65-4592Kydihtmv [Moles/Vol]94 mmol/AHnb43-269EgghhtyasKettering HealthComment on above:Performed By: #### CBC, CMP ####[place] [id number] [facility] Complete Blood Count Auto Diffon 39-79-5218Yvzb Corpuscular HGB Conc32.8 g/dL Gefyso08.0-35.0The [facility] Physician GroupComment on above:Performed By: #### CBC, CMP ####[address] [address] USANRBC%0.3 /100{WBC}Normal0-0.5The [facility] Physician GroupComment on above: Performed By: #### CBC, CMP ####[place] [address] USAWhite Blood Count6.6 [CFU]/mLNormal3.8-11.6The [facility] Physician GroupComment on above:Performed By: #### CBC, CMP ####[facility] [place] [address] [facility] Comprehensive Metabolic Panelon 32-47-2661Ypypfkv [Mass/Vol]3.9 g/dLNormal 3.5-5.7The [facility] Physician GroupComment on above:Performed By: #### CBC, CMP ####[place] [address] [place] [address] [facility] Creatinine Clr Calc Xmvkuoxf01.05NormHCA Florida Oak [facility] Hospital Physician GroupComment on above:Result Comment: PERFORMED BY:[address] [place]JoseJaneFR[place], [place] [phone] MEDICAL DIRECTORELAINE CHAUDHARY M.D.Performed By: #### CBC, CMP ####[place] [address] [place] [address] USAGFR/1.73 sq M.predicted MDRD (S/P/Bld) [Vol rate/Area]36.440 mL/min/{1.73_m2}NormalThe [facility] Physician [facility] CenterComment on above:Performed By: #### CBC, CMP ####[address] [address] [facility]ICComprehensive metabolic panelon 17-24-2001Xwruvjh [Mass/Vol]3.9 g/dL3.5 - 5.7 g/dLNOMS HealthcareAlbumin/Globulin [Mass ratio]1.2 {ratio}NOMS HealthcareALP [Catalytic activity/Vol]145 U/LHigh34 - 104 U/LNOMS HealthcareALT [Catalytic activity/Vol]86 U/LHigh7 - 52 U/LNOMS HealthcareAnion gap [Moles/Vol]12.3 mmol/L6.0 - 15.0NOMS HealthcareAST [Catalytic activity/Vol] 35 U/L13 - 39 U/LNOMS HealthcareBilirubin [Mass/Vol]0.4 mg/dL0.3 - 1.0 mg/dLNOMS HealthcareCalcium [Mass/Vol]8.8 mg/dL8.6 - 10.3 mg/dLNOMS HealthcareChloride [Moles/Vol]94 mmol/LLow98 - 107 mmol/LNOMS HealthcareCO2 [Moles/Vol]37 mmol/L High21.0 - 31.0 mmol/LNOMS HealthcareCreatinine (U) [Mass/Vol]1.56 mg/dLHigh0.60 - 1.20 mg/dLNOWI HealthcareCREATININE CLR CALC OOZWEKAY96.05N[facility] Healthcare GFR/1.73 sq M.predicted MDRD (S/P/Bld) [Vol rate/Area]36.44 mL/min/{1.73_m2}NOMS HealthcareGlobulin (S) [Mass/Vol]3.3 g/dLNOWI HealthcareGlucose [Mass/Vol]168 mg/lMBmgg59 - 100 mg/dLNOWI HealthcareComment on above:Random Glucose Reference Range is dependent on time and content of last meal. Glucose of more than 200 mg/dL in a nonstressed, ambulatory subject supports the diagnosis of Diabetes Mellitus. ADA recommended reference range Interpretation and review of laboratory resultsAbnormalNOMS HealthcarePotassium [Moles/Vol]4.3 mmol/L3.5 - 5.1 mmol/LNOMS HealthcareProtein [Mass/Vol]7.2 g/dL 6.4 - 8.9 g/dLNOWI HealthcareSodium [Moles/Vol]139 mmol/L136 - 145 mmol/LNOMS HealthcareUrea nitrogen [Mass/Vol]20 mg/dL7 - 25 mg/dLSouthPointe Hospital HealthcareCreatinine [Mass/volume] in Serum or PlasmaOrdered By: Roxane Bills on 22-91-6756Vcwnljmsic [Mass/Vol]1.56 mg/dLHigh0.60-1.20K[facility]tering HealthComment on above:Performed By: #### CBC, CMP ####[place] [address] [place] [id number] USAEosinophils [#/volume] in Blood by Automated countOrdered By: Roxane Bills on 44-01-4864Opkwlomxqnu (Bld) [#/Vol]0.3 10*3/uLNormal0.0-0.45K[facility]tering HealthComment on above:Performed By: #### CBC, CMP ####[place] [address] [place] [address] USAEosinophils/100 leukocytes in Blood by Automated countOrdered By: Roxane Bills on 66-04-6524Sbbwvngexfw/100 WBC (Bld)5.3 %Normal. [facility]tering HealthComment on above:Performed By: #### CBC, CMP ####[place] [address] Erythrocyte distribution width [Ratio] by Automated countOrdered By: Roxane Bills on 89-38-2733Ikvwlxqbkid distribution width (RBC) [Ratio]15.3 %Xoslyp61.9-15.3 [facility] HealthComsheridan community hospital on above:Performed By: #### CBC, CMP ####[address] Erythrocytes [#/volume] in Blood by Automated countOrdered By: Roxane Bills on 84-08-0899IGN (Bld) [#/Vol]4.73 10*6/uLNormal3.60-5.00K[facility] HealthComsheridan community hospital on above:Performed By: #### CBC, CMP ####[address]Glomerular filtration rate [Volume Rate/Area] in Serum, Plasma or Blood by CreatinineOrdered By: Roxane Bills on 44-67-8049Okpykaofiw filtration rate [Volume Rate/Area] in Serum, Plasma or Blood by Hhgfzvyxxq07.440 mL/MinKettering HealthGlucose [Mass/volume] in Serum or PlasmaOrdered By: Roxane Bills on 01-71-5103Ikjzxtt [Mass/Vol]168 mg/wMLite21-739QvxotfpytKettering HealthComment on above: Result Comment: Random Glucose Reference Range is dependent on time and content of last meal. Glucose of more than 200 mg/dL in a nonstressed, ambulatory subject supports the diagnosis of Diabetes Mellitus. ADA recommended reference rangePerformed By: #### CBC, CMP ####[place] [address] [place] [phone] USAHematocrit [Volume Fraction] of Blood by Automated countOrdered By: Roxane Bills on 70-91-2623Pxgblzjtcq (Bld) [Volume fraction]42.0 % Xpvrjq19.0-46.4FAshtabula General HospitalComment on above:Performed By: #### CBC, CMP ####[address] [address] USAHemoglobin [Mass/volume] in BloodOrdered By: Roxane Bills on 12-19-2024 Hemoglobin (Bld) [Mass/Vol]13.8 g/bYZwpnmu77.8-15.4FAshtabula General HospitalComment on above:Performed By: #### CBC, CMP ####[address] [address] USALeukocytes [#/volume] corrected for nucleated erythrocytes in Blood by Automated counOrdered By: Roxane Bills on 20-74-1128YDO corrected for nucl RBC Auto (Bld) [#/Vol]6.6 10*3/uL 3.8-11.6FAshtabula General HospitalLeukocytes [#/volume] in Blood by Automated countOrdered By: Roxane Bills on 24-46-3338GEK (Bld) [#/Vol]6.6 10*3/uL Normal3.8-11.6FAshtabula General HospitalComment on above:Performed By: #### CBC, CMP ####[address] [address] USALymphocytes [#/volume] in Blood by Automated countOrdered By: Roxane Bills on 30-45-8746Ffgfzntrrgm (Bld) [#/Vol]0.6 10*3/uLLow1.00-4.8K[facility]tering HealthComment on above:Performed By: #### CBC, CMP ####[address] [address] USALymphocytes/100 leukocytes in Blood by Automated countOrdered By: Roxane Bills on 12-19-2024 Lymphocytes/100 WBC (Bld)9.7 %Normal.Kettering HealthComment on above:Performed By: #### CBC, CMP ####[address] [address] USAMCH [Entitic mass] by Automated countOrdered By: Roxane Bills on 35-69-6886YYA (RBC) [Entitic mass]29.1 ydFmqdzy21.7-34.3FAshtabula General HospitalComment on above:Performed By: #### CBC, CMP ####[place] [address] [facility] Auto (RBC) [Mass/Vol]Ordered By: Roxane Bills on 83-34-8549MSUY (RBC) [Mass/Vol] 32.8 g/dL32.0-35.0St. [facility] HospitalV [Entitic volume] by Automated countOrdered By: Roxane Bills on 06-87-5815RBU (RBC) [Entitic vol]88.8 fL Iadfzz73-660PtjurezyiKettering HealthComment on above:Performed By: #### CBC, CMP ####[place] [address] USAMonocytes [#/volume] in Blood by Automated countOrdered By: Roxane Bills on 95-99-8681Abajyslph (Bld) [#/Vol]0.3 10*3/uLNormal0.0-0.8K[facility]tering HealthComment on above:Performed By: #### CBC, CMP ####[place] [address] USAMonocytes/100 leukocytes in Blood by Automated countOrdered By: Roxane Bills on 12-19-2024 Monocytes/100 WBC (Bld)5.2 %Normal.Kettering HealthComment on above:Performed By: #### CBC, CMP ####[place] [address] USANeutrophils [#/volume] in Blood by Automated count Ordered By: Roxane Bills on 28-22-6649Whancexmonq (Bld) [#/Vol]5.2 10*3/uLNormal 1.8-7.7FAshtabula General HospitalComment on above:Performed By: #### CBC, CMP ####[place] [address] [place] Neutrophils/100 leukocytes in Blood by Automated countOrdered By: Roxane Bills on 31-00-0225Tmqyvccupaf/100 WBC (Bld)78.4 %Normal.K[facility]tering HealthComment on above:Performed By: #### CBC, CMP ####[address] [address] USANo Panel InformationOrdered By: Roxane Bills on 73-79-657041.05Kettering HealthNucleated erythrocytes [Presence] in Blood by Automated countOrdered By: Roxane Bills on 04-96-3825Fuyowfmba RBC Auto Ql (Bld)0.3 /100{WBC}0-0.5FAshtabula General HospitalPlatelet mean volume [Entitic volume] in Blood by Automated count Ordered By: Roxane Bills on 68-59-3516Gpkipnbh mean volume (Bld) [Entitic vol]9.0 fLNormal6.3-10.7FAshtabula General HospitalComment on above:Performed By: #### CBC, CMP ####[place] [address] USAPlatelets [#/volume] in Blood by Automated countOrdered By: Roxane Bills on 44-60-4272Jygblohei (Bld) [#/Vol]130 10*3/tZLje850-922DkcwgbkjmKettering HealthComment on above:Performed By: #### CBC, CMP ####[place] [address] USAPotassium [Moles/volume] in Serum or PlasmaOrdered By: Roxane Bills on 36-51-8594Unnbdokid [Moles/Vol]4.3 mmol/LNormal3.5-5.1FAshtabula General HospitalComment on above:Performed By: #### CBC, CMP ####[address] [address] USAProtein [Mass/volume] in Serum or PlasmaOrdered By: Roxane Bills on 10-19-4620Wkhxads [Mass/Vol]7.2 g/dLNormal6.4-8.9K[facility]tering HealthComment on above:Performed By: #### CBC, CMP ####[address] [place] [address] USASerum globulin measurement by calculation (mass/volume)Ordered By: Roxane Bills on 12-19-2024 Globulin (S) [Mass/Vol]3.3 g/dLNormalKettering HealthComment on above:Performed By: #### CBC, CMP ####[place] [address] USASerum or plasma albumin/globulin mass ratioOrdered By: Roxane Bills on 12-81-8408Sohrosr/Globulin [Mass ratio]1.2 {ratio}Normal [facility]tering HealthComment on above:Performed By: #### CBC, CMP ####[place] [address] USASerum or plasma anion gap determinationOrdered By: Roxane Bills on 54-87-6503Idinp gap [Moles/Vol]12.3 mmol/LNormal6.0-15.0K[facility]tering HealthComment on above:Performed By: #### CBC, CMP ####[place] [address] USASodium [Moles/volume] in Serum or PlasmaOrdered By: Roxane Bills on 81-19-9300Fuutlc [Moles/Vol]139 mmol/TOpziyg449-633EtldefxveKettering HealthComment on above:Performed By: #### CBC, CMP ####[place] [address] USAUrea nitrogen [Mass/volume] in Serum or PlasmaOrdered By: Roxane Bills on 32-49-4609Iwol nitrogen [Mass/Vol]20 mg/dLNormal7-25K[facility]tering HealthComment on above:Performed By: #### CBC, CMP ####[place] [address] USAAnisocytosis [Presence] in Blood by Light microscopyOrdered By: Roxane Bills on 73-91-2951Mkwohzkdzefa Ql (Bld)SlightNormal [facility]tering HealthComment on above:Performed By: #### SCAN CBC, CMP ####[address] [address] [facility] Comprehensive Metabolic Panelon 74-32-1612Opgrgwl [Mass/Vol]3.7 g/dLNormal 3.5-5.7The [facility] Physician GroupComment on above:Performed By: #### SCAN CBC, CMP ####[address] [address] USAAlbumin/Globulin [Mass ratio]1.3 {ratio}NormalThe [facility] Comment on above:Performed By: #### SCAN CBC, CMP ####[address] [address] USAALP [Catalytic activity/Vol]144 U/L Nyvu61-175Ikq [facility] Physician GroupComment on above:Performed By: #### SCAN CBC, CMP ####[address] [address] USAALT [Catalytic activity/Vol]102 U/LHigh7-52[facility] Physician [facility] Comment on above:Performed By: #### SCAN CBC, CMP ####[address] [address] USAAnion gap [Moles/Vol]10.0 mmol/LNormal 6.0-15.0The [facility] Physician GroupComment on above:Performed By: #### SCAN CBC, CMP ####[address] [address] USAAST [Catalytic activity/Vol]61 U/IWexh87-72Bxq [facility]ician [facility] Comment on above:Performed By: #### SCAN CBC, CMP ####[address] [address] USABilirubin [Mass/Vol]0.3 mg/dLNormal 0.3-1.0The [facility] Physician GroupComment on above:Performed By: #### SCAN CBC, CMP ####[address] [address] USACalcium [Mass/Vol]8.6 mg/dLNormal8.6-10.3The [facility] Physician GroupComment on above:Performed By: #### SCAN CBC, CMP ####[place] [address] [place] [address] USAChloride [Moles/Vol]100 mmol/LNormal 98-107The [facility] Physician GroupComment on above:Performed By: #### SCAN CBC, CMP ####[address] [address] [place] CO2 [Moles/Vol]34.9 mmol/LHigh21.0-31.0The [facility] Physician GroupComment on above:Performed By: #### SCAN CBC, CMP ####[address] [address] USACreatinine [Mass/Vol]1.28 mg/dLHigh0.60-1.20 The [facility] Physician GroupComment on above:Performed By: #### SCAN CBC, CMP ####[address] [address] [place] Creatinine Clr Calc Srcsspds43.94NoBlowing Rock Hospital Physician GroupComment on above:Result Comment: PERFORMED BY:[address] [place], [place] [phone] MEDICAL LEESA CHAUDHARY M.D.Performed By: #### SCAN CBC, CMP ####[address] [address] USAGFR/1.73 sq M.predicted MDRD (S/P/Bld) [Vol rate/Area]46.203 mL/min/{1.73_m2}NormalThe [facility] Physician GroupComment on above:Performed By: #### SCAN CBC, CMP ####[address] [address] USAGlobulin (S) [Mass/Vol]2.8 g/dLAdventHealth Heart of [place] Physician [facility] Medical CenterComment on above:Performed By: #### SCAN CBC, CMP ####[address] [address] USAGlucose [Mass/Vol]182 mg/iVWehm44-273Vmq [facility] Physician GroupComment on above: Result Comment: Random Glucose Reference Range is dependent on time and content of last meal. Glucose of more than 200 mg/dL in a nonstressed, ambulatory subject supports the diagnosis of Diabetes Mellitus. ADA recommended reference rangePerformed By: #### SCAN CBC, CMP ####[facility] [place] [address] USAPotassium [Moles/Vol]4.9 mmol/LNormal3.5-5.1 The [facility] Physician GroupComment on above:Performed By: #### SCAN CBC, CMP ####[place] [address] [place] [address] USAProtein [Mass/Vol]6.5 g/dLNormal6.4-8.9The [facility] Physician GroupComment on above: Performed By: #### SCAN CBC, CMP ####[place] [address] [place] [phone] USASodium [Moles/Vol]140 mmol/BZuafdy989-997Gkt [facility] Physician GroupComment on above:Performed By: #### SCAN CBC, CMP ####[place] [address] [place] [address] USAUrea nitrogen [Mass/Vol]22 mg/dLNormal7-25The [facility] Physician GroupComment on above:Performed By: #### SCAN CBC, CMP ####[place] [address] [place] [id number] USAComprehensive metabolic panelon 12-13-2024 Albumin [Mass/Vol]3.7 g/dL3.5 - 5.7 g/dLNOMS HealthcareAlbumin/Globulin [Mass ratio]1.3 {ratio}NOMS HealthcareALP [Catalytic activity/Vol]144 U/LHigh34 - 104 U/LNOMS HealthcareALT [Catalytic activity/Vol]102 U/LHigh7 - 52 U/LNOMS HealthcareAnion gap [Moles/Vol]10 mmol/L6.0 - 15.0NOMS HealthcareAST [Catalytic activity/Vol]61 U/LHigh13 - 39 U/LNOMS HealthcareBilirubin [Mass/Vol]0.3 mg/dL 0.3 - 1.0 mg/dLNOMS HealthcareCalcium [Mass/Vol]8.6 mg/dL8.6 - 10.3 mg/dLNOMS HealthcareChloride [Moles/Vol]100 mmol/L98 - 107 mmol/LNOMS HealthcareCO2 [Moles/Vol]34.9 mmol/LHigh21.0 - 31.0 mmol/LNOMS HealthcareCreatinine (U) [Mass/Vol]1.28 mg/dLHigh0.60 - 1.20 mg/dLNOWI HealthcareCREATININE CLR CALC XYLUGYDT26.94NOMS HealthcareGFR/1.73 sq M.predicted MDRD (S/P/Bld) [Vol rate/Area]46.203 mL/min/{1.73_m2}NOMS HealthcareGlobulin (S) [Mass/Vol]2.8 g/dL NOMS HealthcareGlucose [Mass/Vol]182 mg/qIGjsi32 - 100 mg/dLNOJohn J. Pershing VA [facility] Center Comment on above:Random Glucose Reference Range is dependent on time and content of last meal. Glucose of more than 200 mg/dL in a nonstressed, ambulatory subject supports the diagnosis of Diabetes Mellitus. ADA recommended reference range Interpretation and review of laboratory resultsAbnormalNOMS HealthcarePotassium [Moles/Vol]4.9 mmol/L3.5 - 5.1 mmol/LNOMS HealthcareProtein [Mass/Vol]6.5 g/dL 6.4 - 8.9 g/dLNOWI HealthcareSodium [Moles/Vol]140 mmol/L136 - 145 mmol/LNOMS HealthcareUrea nitrogen [Mass/Vol]22 mg/dL7 - 25 mg/dLNOJohn J. Pershing VA Medical CenterNOMS HealthcareErythrocyte morphology finding [Identifier] in BloodOrdered By: Roxane Bills on 98-52-0130IES morphology finding Nom (Bld)N/[facility] HospitalMicrocytes LM Ql (Bld)Ordered By: Roxane Bills on 97-98-4904Mmdmrbcslj Ql (Bld)[facility] Medical CenterOvalocytes [Presence] in Blood by Light microscopyOrdered By: Roxane Bills on 19-83-1009Vruwuxriin LM Ql (Bld)[facility] CampusPlatelet adequacy [Presence] in Blood by Light microscopyOrdered By: Roxane Bills on 33-52-2253Wrcdxyhim LM Ql (Bld)NormalNormal [facility]tering HealthPlatelet morphology finding [Identifier] in BloodOrdered By: Roxane Bills on 33-89-4040Dmyulbpy morphology finding Nom (Bld) NormalNormalFirelands Regional Medical CenterPolychromasia [Presence] in Blood by Light microscopyOrdered By: Roxane Bills on [id number] LM Ql (Bld) SlightGrant Hospitalcan and CBCon [id number] (Bld) [#/Vol]0.2 10*3/uLNormal0.0-0.2The [facility] Physician GroupComment on above: Performed By: #### SCAN CBC, CMP ####[address] [address] USABasophils/100 WBC (Bld)3.7 %Normal.The [facility] Physician GroupComment on above:Performed By: #### SCAN CBC, CMP ####[address] [address] USAEosinophils (Bld) [#/Vol]0.2 10*3/uLNormal0.0-0.45The [facility] Physician GroupComment on above: Performed By: #### SCAN CBC, CMP ####[address] [address] USAEosinophils/100 WBC (Bld)3.2 %Normal.The [facility] Physician GroupComment on above:Performed By: #### SCAN CBC, CMP ####[address] [address] USAErythrocyte distribution width (RBC) [Ratio]15.6 %High11.9-15.3The [facility] Comment on above:Performed By: #### SCAN CBC, CMP ####[address] [address] USAHematocrit (Bld) [Volume fraction] 42.1 %Dgvxmv18.0-46.4The [facility] Physician GroupComment on above:Performed By: #### SCAN CBC, CMP ####[address] [address] USAHemoglobin (Bld) [Mass/Vol]13.6 g/bCUasuug46.8-15.4The [facility] Physician GroupComment on above:Performed By: #### SCAN CBC, CMP ####[address] [address] USALymphocytes (Bld) [#/Vol]1.4 10*3/uLNormal1.00-4.8The [facility] Physician GroupComment on above: Performed By: #### SCAN CBC, CMP ####[address] [address] USALymphocytes/100 WBC (Bld)24.1 %Normal.The [facility] Physician GroupComment on above:Performed By: #### SCAN CBC, CMP ####[address] [address] [facility]ICMCH (RBC) [Entitic mass]28.9 jyUfweoh32.7-34.3The [facility] Physician GroupComment on above: Performed By: #### SCAN CBC, CMP ####[place] [address] USAV (RBC) [Entitic vol]89.8 hKAgemhe28-306Yaf [facility] Physician GroupComment on above:Performed By: #### SCAN CBC, CMP ####[place] [address] USAMean Corpuscular HGB Conc32.2 g/tTHofdzc12.0-35.0The [facility] Physician GroupComment on above:Performed By: #### SCAN CBC, CMP ####[place] [address] USAMicrocytosisSlightNormalThe [facility] Physician GroupComment on above:Performed By: #### SCAN CBC, CMP ####[address] [address] USAMonocytes (Bld) [#/Vol]1.6 10*3/uLHigh0.0-0.8The [facility] Physician GroupComment on above: Performed By: #### SCAN CBC, CMP ####[place] [address] USAMonocytes/100 WBC (Bld)26.6 %Normal.The [facility] Physician GroupComment on above:Performed By: #### SCAN CBC, CMP ####[place] [address] USANeutrophils (Bld) [#/Vol]2.5 10*3/uLNormal1.8-7.7The [facility] Physician GroupComment on above: Performed By: #### SCAN CBC, CMP ####[place] [address] USANeutrophils/100 WBC (Bld)42.4 %Normal.The [facility] Physician GroupComment on above:Performed By: #### SCAN CBC, CMP ####[place] [address] USANRBC%0.1 /100{WBC} Normal0-0.5The [facility] Physician GroupComment on above:Performed By: #### SCAN CBC, CMP ####[place] [address] USAOvalocytesSlightNoBlowing Rock Hospital Physician GroupComment on above:Performed By: #### SCAN CBC, CMP ####[place] [address] USAPlatelet EstimateNormalNormalAdventHealth Heart of Florida Physician GroupComment on above:Performed By: #### SCAN CBC, CMP ####[place] [address] USAPlatelet mean volume (Bld) [Entitic vol]7.3 fLNormal6.3-10.7The [facility] Physician GroupComment on above:Performed By: #### SCAN CBC, CMP ####[place] [address] USAPlatelet MorphologyNormalNormalNoBlowing Rock Hospital Physician GroupComment on above:Result Comment: PERFORMED BY:[address] [place], [place] [phone] MEDICAL LEESA CHAUDHARY M.D.Performed By: #### SCAN CBC, CMP ####[address] [place] [address] [place] Platelets (Bld) [#/Vol]371 10*3/lPArwjkj515-023Cnw [facility] Comment on above:Performed By: #### SCAN CBC, CMP ####[place] [address] [place] [address] USAPolychromasiaSlightNormalThe [facility] Physician GroupComment on above:Performed By: #### SCAN CBC, CMP ####[address] [address] USARBC (Bld) [#/Vol]4.69 10*6/uLNormal3.60-5.00The [facility] Physician GroupComment on above:Performed By: #### SCAN CBC, CMP ####[address] [address] USAWBC (Bld) [#/Vol]5.9 10*3/uLNormal3.8-11.6The [facility] Physician GroupComment on above:Performed By: #### SCAN CBC, CMP ####[address] [address] USAWhite Blood Count5.9 [CFU]/mLNormal3.8-11.6The [facility] Physician GroupComment on above:Performed By: #### SCAN CBC, CMP ####[address] [address] USAPROTEIN ELECTRO, RANDOM URINEon 12-08-2024 ALBUMIN, URINE22.9 %.[facility]S AkbfbcfxeyBRZSE-2-AJGYFCME, URINE5.1 %.[facility] JJIAB-5-WYCAUGCZ, URINE26.3 %.[facility] HealthcareBETA GLOBULIN, URINE25.1 %.[facility] HealthcareGAMMA GLOBULIN, URINE20.6 %.[facility] HealthcareM-SPIKE %8.1 %Not Observed [facility] HealthcarePLEASE NOTE:Comment.[facility] HealthcareComment on above:Protein electrophoresis scan will follow via computer, mail, or water softener service supervisor delivery. Performed at: [address] [id number] [place]: Jhoan Rich PhD, Phone: [phone] Protein (U) [Mass/Vol]6.3 mg/dLNot Estab.Critical access hospital24 hour urine albumin/total protein ratio by electrophoresisOrdered By: Roxane Bills on 36-46-6662Bhhwzzm Elph (24H U) [Mass fraction]22.9 %.[facility]24 hour urine gamma globulin/total protein ratio by electrophoresisOrdered By: Roxane Bills on 53-26-1026Avaoe globulin Elph (24H U) [Mass fraction]20.6 %. [facility]24 hour urine protein monoclonal/total protein by electrophoresisOrdered By: Roxane Bills on 91-98-6542Xtjiwjv.monoclonal Elph (24H U) [Mass fraction]8.1 %HighNot ObservedKettering Health Free K+L LT Chains, Qn, Son 97-97-4757Cvju Coolidge Light Chains, S128.9 mg/LNormal 3.3-19.4The [facility] Physician GroupComment on above:Performed By: #### KAPPA, SPE ####[facility] ,Free Lambda Light Chains, S37.9 mg/LNormal5.7-26.3 The [facility] Physician GroupComment on above:Performed By: #### KAPPA, SPE ####[facility] ,Coolidge/Lambda Ratio, S3.71Gorhkw9.26-1.65The [facility] Physician GroupComment on above:Result Comment: Performed at: [facility] [id number] [place]: Jhoan Rich PhD, Phone: [phone] BY:[place] [address] [address] [place], [place] [phone] MEDICAL DIRECTORELAINE CHAUDHARY M.D.Performed By: #### KAPPA, SPE ####[facility] ,Magnesiumon 48-06-1505Xsafqjhyjtewmj and review of laboratory resultsAbnormalUniversity HospitalS HealthcareMagnesium [Mass/volume] in Serum or Plasmaon 87-19-3317Mykqmbajf [Mass/Vol]1.3 mg/dLLow1.9-2.7[facility] HealthcareComment on above:Result Comment: PERFORMED BY:[facility] [place], [place] [phone] MEDICAL DIRECTORELAINE CHAUDHARY M.D.Performed By: #### MG ####[facility] [address] [place] [address] USANo Panel InformationOrdered By: Roxane Bills on 86-40-2198Qehskbb.[facility]0.4 g/dLHighNot ObservedK[facility] Health Comment.[facility] HealthProtein Electro, Random Urineon 55-25-3283Vhjxqft, Urine22.9 %Normal.The [facility] Physician GroupComment on above:Performed By: #### UPE RAND ####[facility] ,Sbhbd-4-Dmeakgba, Urine5.1 %Normal.The [facility] Physician GroupComment on above:Performed By: #### UPE RAND ####[facility] ,Pkmuj-1-Qchxncvk, Urine26.3 %Normal.The [facility] Physician GroupComment on above:Performed By: #### UPE RAND ####[facility] ,Beta Globulin, Urine25.1 %Normal.The [facility] Physician GroupComment on above:Performed By: #### UPE RAND ####[facility] ,Gamma Globulin, Urine20.6 %Normal.The [facility] Comment on above:Performed By: #### UPE RAND ####[facility] ,M-Damien % 8.1 %NormalNot ObservedThe [facility] Physician GroupComment on above:Performed By: #### UPE RAND ####[facility] ,Please Note:CommentNormal.The [facility] Physician GroupComment on above:Result Comment: Protein electrophoresis scan will follow via computer, mail, or water softener service supervisor delivery. Pe rformed at: [facility] Labco[address] [id number] [place]: Jhoan Rich PhD, Phone: [phone] BY:[facility] [place], [place] [phone] MEDICAL DIRECTORELAINE CHAUDHARY M.D.Performed By: #### UPE RAND ####[facility] ,Protein Electrophoresis, Serumon 24-87-3969Csumx-1-Globulin0.3 g/dLNormal0.0-0.4The [facility] Physician GroupComment on above:Performed By: #### KAPPA, SPE ####[facility] ,Curix-1-Mshpnozg7.9 g/dLNormal0.4-1.0 The [facility] Physician GroupComment on above:Performed By: #### KAPPA, SPE ####[facility] ,Beta Globulin1.1 g/dLNormal0.7-1.3The [facility] Physician GroupComment on above:Performed By: #### KAPPA, SPE ####[facility] ,Gamma Globulin0.9 g/dLNormal0.4-1.8The [facility] Comment on above:Performed By: #### KAPPA, SPE ####[facility] ,M-Damien 0.4 g/dLNormalNot ObservedThe [facility] Physician GroupComment on above: Performed By: #### KAPPA, SPE ####[facility] ,SPE-NoteCommentNormal. The [facility] Physician GroupComment on above:Result Comment: Protein electrophoresis scan will follow via computer, mail, or water softener service supervisor delivery. Pe rformed at: [facility] [address] [id number] [place]: Jhoan Rich PhD, Phone: [phone] By: #### KAPPA, SPE ####[facility] ,Serum free kappa light chain measurementOrdered By: Roxane Bills on 33-32-2472Ulqpvwrpzeszlj light chains.kappa.free (S) [Mass/Vol] 128.9 mg/LHigh3.3-19.4FPomerene Hospitalerum globulin measurement (mass/volume)Ordered By: Roxane Bills on 84-84-3665Qkosrjla (S) [Mass/Vol]3.2 g/dLNormal2.2-3.9[facility] HealthComment on above:Performed By: #### KAPPA, SPE ####[facility] ,Serum immunoglobulin free kappa light chains/immunoglobulin free lambda light chains Ordered By: Roxane Bills on 84-94-7119Jsmqfobhwfwmlk light chains.kappa.free/Immunoglobulin light chains.lambda.free (S) [Mass ratio]3.40 High0.26-1.65Grant Hospitalerum or plasma albumin measurement (mass/volume)Ordered By: Roxane Bills on 75-03-7784Icgvujh [Mass/Vol] 3.1 g/dLNormal2.9-4.4FAshtabula General HospitalComment on above:Performed By: #### KAPPA, SPE ####[facility] ,Serum or plasma albumin/globulin mass ratioOrdered By: Roxane Bills on 71-82-8026Oqupssk/Globulin [Mass ratio]1.0 {ratio}Normal0.7-1.7FAshtabula General HospitalComment on above:Performed By: #### KAPPA, SPE ####[facility] ,Serum or plasma alpha 1 globulin measurement by electrophoresis (mass/volume)Ordered By: Roxane Bills on 12-06-2024 Alpha 1 globulin Elph [Mass/Vol]0.3 g/dL0.0-0.4FAshtabula General Hospital Serum or plasma alpha 2 globulin measurement by electrophoresis (mass/volume) Ordered By: Roxane Bills on 44-00-7901Czeju 2 globulin Elph [Mass/Vol]0.9 g/dL 0.4-1.0Grant Hospitalerum or plasma beta globulin measurement by electrophoresis (mass/volume)Ordered By: Roxane Bills on 12-06-2024 Beta globulin Elph [Mass/Vol]1.1 g/dL0.7-1.3FAshtabula General Hospital Serum or plasma gamma globulin measurement by electrophoresis (mass/volume) Ordered By: Roxane Bills on 40-81-6247Ffchs globulin Elph [Mass/Vol]0.9 g/dL0.4-1.8 [facility] Hospitalerum or plasma immunoglobulin free lambda light chains measurement (mass/volume)Ordered By: Roxane Bills on 12-06-2024 Immunoglobulin light chains.lambda.free [Mass/Vol]37.9 mg/LHigh5.7-26.3FPomerene Hospitalerum total protein measurementOrdered By: Roxane Bills on 28-54-5703Zvgacmn [Mass/Vol]6.3 g/dLNormal6.0-8.5FAshtabula General HospitalComment on above:Performed By: #### KAPPA, SPE ####[facility] , Urine alpha 1 globulin/total protein by electrophoresisOrdered By: Roxane Bills on 70-86-3093Oijte 1 globulin Elph (U) [Mass fraction]5.1 %.[facility] HealthUrine alpha 2 globulin/total protein ratio by electrophoresis Ordered By: Roxane Bills on 68-60-2541Acdrs 2 globulin Elph (U) [Mass fraction]26.3 %.[facility] HealthUrine beta globulin measurement by electrophoresis (mass/volume)Ordered By: Roxane Bills on 91-81-1767Tknq globulin Elph (U) [Mass/Vol]25.1 %.[facility] HealthUrine protein measurement (mass/volume)Ordered By: Roxane Bills on 84-10-9920Dpaeplh (U) [Mass/Vol]6.3 mg/dLNormalNot Estab.[facility] HealthComment on above:Performed By: #### UPE RAND ####[facility] ,Alanine aminotransferase [Enzymatic activity/volume] in Serum or PlasmaOrdered By: Roxane Bills on 78-02-2689ESQ [Catalytic activity/Vol]38 U/LNormal7-52[facility] HealthComment on above:Performed By: #### CMP, CBC ####[facility] [address] [place] [address] USAAlbumin [Mass/volume] in Serum or Plasma by Bromocresol green (BCG) dye binding metho Ordered By: Roxane Bills on 30-11-2945Wwgkcwm BCG dye [Mass/Vol]3.5 g/dL3.5-5.7 [facility] HealthAlkaline phosphatase [Enzymatic activity/volume] in Serum or PlasmaOrdered By: Roxane Bills on 67-46-7959DIW [Catalytic activity/Vol]84 U/NKuimls73-590JqasmtmpfKettering Health Comment on above:Performed By: #### CMP, CBC ####[address] [address] USAAspartate aminotransferase [Enzymatic activity/volume] in Serum or PlasmaOrdered By: Roxane Bills on 86-25-9460WAD [Catalytic activity/Vol]25 U/RLwbkqm78-92MaccwnhvcKettering Health Comment on above:Performed By: #### CMP, CBC ####[place] [id number] USABasophils [#/volume] in Blood by Automated countOrdered By: Roxane Bills on 98-71-4509Mhkjvzwpz (Bld) [#/Vol]0.0 10*3/uLNormal0.0-0.2FAshtabula General HospitalComment on above:Result Comment: PERFORMED BY:[address] [place], [place] [phone] MEDICAL DIRECTORELAINE CHAUDHARY M.D.Performed By: #### CMP, CBC ####[address] [address] USABasophils/100 leukocytes in Blood by Automated countOrdered By: Roxane Bills on 24-19-2627Xkuimkpye/100 WBC (Bld)0.7 %Normal.[facility] HealthComment on above:Performed By: #### CMP, CBC ####[address] [address] USABilirubin.total [Mass/volume] in Serum or PlasmaOrdered By: Roxane Bills on 51-21-0134Fvxovrljr [Mass/Vol]0.4 mg/dLNormal0.3-1.0[facility] HealthComment on above:Performed By: #### CMP, CBC ####[address] [address] USACBC W Auto Differential panel (Bld)on 07-55-2372Dbvqlqqux (Bld) [#/Vol]0 10*3/uL0.0 - 0.2 10*3/uLNOMS HealthcareBasophils/100 WBC Manual cnt (Syn fld)0.7 %.[facility] HospitalEosinophils (Bld) [#/Vol]0.3 10*3/uL0.0 - 0.45 10*3/uLNOMS HealthcareEosinophils/100 WBC Manual cnt (Syn fld)8.5 %.[facility] HospitalErythrocyte distribution width (RBC) [Ratio]15.5 %High11.9 - 15.3 % [facility] HospitalHematocrit (Bld) [Volume fraction]37.8 %34.0 - 46.4 %[facility] HospitalHemoglobin (Bld) [Mass/Vol]12.3 g/dL11.8 - 15.4 g/dLSac-Osage Hospital Interpretation and review of laboratory resultsAbnormalSac-[facility] Hospital Lymphocytes (Bld) [#/Vol]0.6 10*3/uLLow1.00 - 4.8 10*3/uLNOMS Healthcare Lymphocytes/100 WBC Manual cnt (Syn fld)20.4 %.[facility] HospitalMCH (RBC) [Entitic mass]29.2 pg24.7 - 34.3 pgCarondelet HealthHC (RBC) [Mass/Vol]32.4 g/dL32.0 - 35.0 g/dLSac-Osage HospitalMCV (RBC) [Entitic vol]90.1 fL80 - 100 fLSac-Osage Hospital Monocytes (Bld) [#/Vol]0.6 10*3/uL0.0 - 0.8 10*3/uLNOMS Healthcare Monocytes+Macrophages/100 WBC Manual cnt (Syn fld)20.5 %.[facility] Neutrophils (Bld) [#/Vol]1.5 10*3/uLLow1.8 - 7.7 10*3/uLNOMS Healthcare Neutrophils/100 WBC Manual cnt (Syn fld)49.9 %.[facility] HospitalNRBC0.2 /100{WBC}0 - 0.5 /100{WBC}[facility] HospitalPlatelet mean volume (Bld) [Entitic vol]8 fL6.3 - 10.7 fLNOMS HealthcarePlatelets (Bld) [#/Vol]205 10*3/uL150 - 450 10*3/uLNOMS HealthcareRBC LM.HPF (Urine sed) [#/Area]4.2 10*6/uL3.60 - 5.00 10*6/uLNOMS HealthcareWBC (Bld) [#/Vol]3 10*3/uLLow3.8 - 11.6 10*3/uLNOMS HealthcareWBC LM.HPF (Urine sed) [#/Area]3 [CFU]/mLLow3.8 - 11.6 [CFU]/mLNOMS HealthcareNOMS HealthcareCalcium [Mass/volume] in Serum or PlasmaOrdered By: Roxane Bills on 08-49-9588Uflceja [Mass/Vol]7.3 mg/dLLow8.6-10.3FAshtabula General HospitalComment on above:Performed By: #### CMP, CBC ####[place] [address] USACarbon dioxide, total [Moles/volume] in Serum or PlasmaOrdered By: Roxane Bills on 61-58-8426UP1 [Moles/Vol]37.2 mmol/LHigh21.0-31.0[facility] HealthComment on above:Performed By: #### CMP, CBC ####[place] [address] USAChloride [Moles/volume] in Serum or PlasmaOrdered By: Roxane Bills on 99-69-9099Qvpvymqk [Moles/Vol]99 mmol/GQbaydw31-674SmhdqofyxKettering HealthComment on above:Performed By: #### CMP, CBC ####[place] [address] [facility] Complete Blood Count Auto Diffon 81-78-8947Udvv Corpuscular HGB Conc32.4 g/dL Whnhqp67.0-35.0The [facility] Physician GroupComment on above:Performed By: #### CMP, CBC ####[place] [address] USANRBC%0.2 /100{WBC}Normal0-0.5The [facility] Physician GroupComment on above: Performed By: #### CMP, CBC ####[place] [address] USAWhite Blood Count3.0 [CFU]/mLLow3.8-11.6The [facility] Physician GroupComment on above:Performed By: #### CMP, CBC ####[place] [address] [facility] Comprehensive Metabolic Panelon 33-85-0080Onnnaiz [Mass/Vol]3.5 g/dLNormal 3.5-5.7The [facility] Physician GroupComment on above:Performed By: #### CMP, CBC ####[address] Creatinine Clr Calc Yjqztqux31.20NoBlowing Rock Hospital Physician [facility] Medical CenterComment on above:Result Comment: PERFORMED BY:[address] [place], [place] [phone] MEDICAL LEESA CHAUDHARY M.D.Performed By: #### CMP, CBC ####[place] [address] USAGFR/1.73 sq M.predicted MDRD (S/P/Bld) [Vol rate/Area]47.085 mL/min/{1.73_m2}NormalThe [facility] Physician [facility] CenterComment on above:Performed By: #### CMP, CBC ####[place] [address] USAComprehensive metabolic panelon 49-00-6672Tkygitl [Mass/Vol]3.5 g/dL3.5 - 5.7 g/dLNOMS HealthcareAlbumin/Globulin [Mass [...] mg/dLHigh0.60 - 1.20 mg/dLNOMS HealthcareCREATININE CLR CALC BPTOHTJV50.2NOMS HealthcareGFR/1.73 sq M.predicted MDRD (S/P/Bld) [Vol rate/Area]47.085 mL/min/{1.73_m2}NOMS HealthcareGlobulin (S) [Mass/Vol]2.5 g/dLNOMS HealthcareGlucose [Mass/Vol]110 mg/nFZsmw48 - 100 mg/dLNOWI HealthcareComment on above:Random Glucose Reference Range is dependent on time and content of last meal. Glucose of more than 200 mg/dL in a nonstressed, ambulatory subject supports the diagnosis of Diabetes Mellitus. ADA recommended reference range Interpretation and review of laboratory resultsAbnormalNOMS HealthcarePotassium [Moles/Vol]4.6 mmol/L3.5 - 5.1 mmol/LNOMS HealthcareProtein [Mass/Vol]6 g/dLLow 6.4 - 8.9 g/dLNOMS HealthcareSodium [Moles/Vol]143 mmol/L136 - 145 mmol/LNOMS HealthcareUrea nitrogen [Mass/Vol]16 mg/dL7 - 25 mg/dLNOMS HealthcareNOMS HealthcareCreatinine [Mass/volume] in Serum or PlasmaOrdered By: Roxane Bills on 32-93-7752Lbgpldfyya [Mass/Vol]1.26 mg/dLHigh0.60-1.20[facility] HealthComment on above:Performed By: #### CMP, CBC ####[facility] [address] [place] [address] USAEosinophils [#/volume] in Blood by Automated countOrdered By: Roxane Bills on 68-37-0119Phaopgwrwpn (Bld) [#/Vol]0.3 10*3/uLNormal0.0-0.45[facility] HealthComment on above:Performed By: #### CMP, CBC ####[place] [address] USAEosinophils/100 leukocytes in Blood by Automated countOrdered By: Roxane Bills on 34-09-1989Ewzpkbdsnis/100 WBC (Bld)8.5 %Normal. [facility] HealthComment on above:Performed By: #### CMP, CBC ####[address] Erythrocyte distribution width [Ratio] by Automated countOrdered By: Roxane Bills on 01-12-6039Xwhzjsckrlm distribution width (RBC) [Ratio]15.5 %High11.9-15.3 [facility] HealthComment on above:Performed By: #### CMP, CBC ####[address] Erythrocytes [#/volume] in Blood by Automated countOrdered By: Roxane Bills on 31-35-1416FID (Bld) [#/Vol]4.20 10*6/uLNormal3.60-5.00[facility] HealthComsheridan community hospital on above:Performed By: #### CMP, CBC ####[place] [address] USAGlomerular filtration rate [Volume Rate/Area] in Serum, Plasma or Blood by CreatinineOrdered By: Roxane Bills on 42-64-5047Famutvmiwf filtration rate [Volume Rate/Area] in Serum, Plasma or Blood by Ffudwfbvju83.085 mL/MinKettering HealthGlucose [Mass/volume] in Serum or PlasmaOrdered By: Roxane Bills on 23-79-6207Uumbghb [Mass/Vol]110 mg/kWMzlg20-414AbxhnvpyhKettering HealthComment on above: Result Comment: Random Glucose Reference Range is dependent on time and content of last meal. Glucose of more than 200 mg/dL in a nonstressed, ambulatory subject supports the diagnosis of Diabetes Mellitus. ADA recommended reference rangePerformed By: #### CMP, CBC ####[place] [address] USAHematocrit [Volume Fraction] of Blood by Automated countOrdered By: Roxane Bills on 95-56-8210Nxfrhklhtc (Bld) [Volume fraction]37.8 % Ugnppg25.0-46.4FAshtabula General HospitalComment on above:Performed By: #### CMP, CBC ####[place] [address] USAHemoglobin [Mass/volume] in BloodOrdered By: Roxane Bills on 12-05-2024 Hemoglobin (Bld) [Mass/Vol]12.3 g/sTTtutjh78.8-15.4FAshtabula General HospitalComment on above:Performed By: #### CMP, CBC ####[place] [address] USALeukocytes [#/volume] corrected for nucleated erythrocytes in Blood by Automated counOrdered By: Roxane Bills on 63-75-5442DDL corrected for nucl RBC Auto (Bld) [#/Vol]3.0 10*3/uLLow 3.8-11.6FAshtabula General HospitalLeukocytes [#/volume] in Blood by Automated countOrdered By: Roxane Bills on 38-38-1597RYJ (Bld) [#/Vol]3.0 10*3/uL Low3.8-11.6FAshtabula General HospitalComment on above:Performed By: #### CMP, CBC ####[place] [address] USALymphocytes [#/volume] in Blood by Automated countOrdered By: Roxane Bills on 08-04-0263Rcicenxdidi (Bld) [#/Vol]0.6 10*3/uLLow1.00-4.8K[facility] HealthComment on above:Performed By: #### CMP, CBC ####[place] [address] USALymphocytes/100 leukocytes in Blood by Automated countOrdered By: Roxane Bills on 12-05-2024 Lymphocytes/100 WBC (Bld)20.4 %Normal.[facility] HealthComment on above:Performed By: #### CMP, CBC ####[address] [address] [facility] [Entitic mass] by Automated countOrdered By: Roxane Bills on 13-11-5280XCU (RBC) [Entitic mass]29.2 tgKlwjds55.7-34.3 [facility] HealthComment on above:Performed By: #### CMP, CBC ####[place] [address] [facility] Auto (RBC) [Mass/Vol]Ordered By: Roxane Bills on 17-94-1337QFRZ (RBC) [Mass/Vol] 32.4 g/dL32.0-35.0St. [facility] HospitalV [Entitic volume] by Automated countOrdered By: Roxane Bills on 67-05-1881YHF (RBC) [Entitic vol]90.1 fL Pfybfb72-678EvwvztxkzKettering HealthComment on above:Performed By: #### CMP, CBC ####[place] [address] USAMonocytes [#/volume] in Blood by Automated countOrdered By: Roxane Bills on 90-45-0699Olirfqnlj (Bld) [#/Vol]0.6 10*3/uLNormal0.0-0.8K[facility] HealthComment on above:Performed By: #### CMP, CBC ####[place] [address] USAMonocytes/100 leukocytes in Blood by Automated countOrdered By: Roxane Bills on 12-05-2024 Monocytes/100 WBC (Bld)20.5 %Normal.[facility] HealthComment on above:Performed By: #### CMP, CBC ####[place] [address] USANeutrophils [#/volume] in Blood by Automated count Ordered By: Roxane Bills on 32-92-5497Xenotafuraq (Bld) [#/Vol]1.5 10*3/uLLow 1.8-7.7FAshtabula General HospitalComment on above:Performed By: #### CMP, CBC ####[place] [address] [place] Neutrophils/100 leukocytes in Blood by Automated countOrdered By: Roxane Bills on 75-29-7722Pstckiyyvkk/100 WBC (Bld)49.9 %Normal.[facility] HealthComment on above:Performed By: #### CMP, CBC ####[place] [address] USANo Panel InformationOrdered By: Roxane Bills on .20Kettering HealthNucleated erythrocytes [Presence] in Blood by Automated countOrdered By: Roxane Bills on 45-17-6168Qonrfavfr RBC Auto Ql (Bld)0.2 /100{WBC}0-0.5FAshtabula General HospitalPlatelet mean volume [Entitic volume] in Blood by Automated count Ordered By: Roxane Bills on 25-62-7893Mbqjcnlb mean volume (Bld) [Entitic vol]8.0 fLNormal6.3-10.7FAshtabula General HospitalComment on above:Performed By: #### CMP, CBC ####[place] [id number] USAPlatelets [#/volume] in Blood by Automated countOrdered By: Roxane Bills on 52-55-6056Ymnzszcyu (Bld) [#/Vol]205 10*3/cMTnloow141-504IglydvqbcKettering HealthComment on above:Performed By: #### CMP, CBC ####[place] [id number] USAPotassium [Moles/volume] in Serum or PlasmaOrdered By: Roxane Bills on 44-14-7999Ivafjqmsw [Moles/Vol]4.6 mmol/LNormal3.5-5.1FAshtabula General HospitalComment on above:Performed By: #### CMP, CBC ####[place] [id number] USAProtein [Mass/volume] in Serum or PlasmaOrdered By: Roxane Bills on 78-54-5682Odrktua [Mass/Vol]6.0 g/dLLow6.4-8.9Kettering HealthComment on above:Performed By: #### CMP, CBC ####[place] [id number] USASerum globulin measurement by calculation (mass/volume)Ordered By: Roxane Bills on 12-05-2024 Globulin (S) [Mass/Vol]2.5 g/dLNoSelect Medical Specialty Hospital - YoungstownComment on above:Performed By: #### CMP, CBC ####[place] [address] USASerum or plasma albumin/globulin mass ratioOrdered By: Roxane Bills on 54-57-6700Zjqgdzy/Globulin [Mass ratio]1.4 {ratio}Normal Kettering HealthComment on above:Performed By: #### CMP, CBC ####[place] [id number] USASerum or plasma anion gap determinationOrdered By: Roxane Bills on 44-23-0799Knmpu gap [Moles/Vol]11.4 mmol/LNormal6.0-15.0Kettering HealthComment on above:Performed By: #### CMP, CBC ####[place] [id number] USASodium [Moles/volume] in Serum or PlasmaOrdered By: Roxane Bills on 58-85-3216Ioxhsg [Moles/Vol]143 mmol/TAvcjsk214-599YhminccxpKettering HealthComment on above:Performed By: #### CMP, CBC ####[place] [id number] USAUrea nitrogen [Mass/volume] in Serum or PlasmaOrdered By: Roxane Bills on 51-58-7078Xksf nitrogen [Mass/Vol]16 mg/dLNormal7-25Kettering HealthComment on above:Performed By: #### CMP, CBC ####[address] [address] USABasophils/100 leukocytes in Blood by Manual countOrdered By: Roxane Bills on 09-52-1198Xsndmkaul/100 WBC (Bld)1 %Normal0-2 Kettering HealthComment on above:Performed By: #### CMP, DIFF CBC ####[address] [address] [facility] Comprehensive Metabolic Panelon 36-02-3985Hnjorly [Mass/Vol]3.3 g/dLLow3.5-5.7 The [facility] Physician GroupComment on above:Performed By: #### CMP, DIFF CBC ####[address] [address] [facility] Albumin/Globulin [Mass ratio]1.1 {ratio}NormalThe [facility] Physician [facility] Comment on above:Performed By: #### CMP, DIFF CBC ####[address] [address] USAALP [Catalytic activity/Vol]79 U/L Xujxfq60-892Anf [facility] HospitalComment on above:Performed By: #### CMP, DIFF CBC ####[address] [address] USAALT [Catalytic activity/Vol]37 U/LNormal7-52The [facility] HospitalComment on above:Performed By: #### CMP, DIFF CBC ####[address] [address] USAAnion gap [Moles/Vol]8.0 mmol/LNormal6.0-15.0The [facility] HospitalComment on above:Performed By: #### CMP, DIFF CBC ####[address] [address] USAAST [Catalytic activity/Vol]15 U/NYftfwq74-08Xff [facility] GroupComment on above:Performed By: #### CMP, DIFF CBC ####[address] [address] USABilirubin [Mass/Vol]0.5 mg/dL Normal0.3-1.0The [facility] Physician GroupComment on above:Performed By: #### CMP, DIFF CBC ####[address] [address] USACalcium [Mass/Vol]7.5 mg/dLLow8.6-10.3The [facility] Comment on above:Performed By: #### CMP, DIFF CBC ####[address] [address] USAChloride [Moles/Vol]98 mmol/LNormal 98-107The [facility] Physician GroupComment on above:Performed By: #### CMP, DIFF CBC ####[address] [address] [place] CO2 [Moles/Vol]39.8 mmol/LHigh21.0-31.0The [facility] Physician GroupComment on above:Performed By: #### CMP, DIFF CBC ####[address] [address] USACreatinine [Mass/Vol]1.19 mg/dLNormal0.60-1.20 The [facility] Physician GroupComment on above:Performed By: #### CMP, DIFF CBC ####[address] [address] [place] Creatinine Clr Calc Tqxjxvrs57.76NormHCA Florida Oak Hill Hospital Physician GroupComment on above:Result Comment: PERFORMED BY:[address] [place], [place] [phone] MEDICAL LEESA CHAUDHARY M.D.Performed By: #### CMP, DIFF CBC ####[address] [address] USAGFR/1.73 sq M.predicted MDRD (S/P/Bld) [Vol rate/Area]50.428 mL/min/{1.73_m2}NormalThe [facility] Physician GroupComment on above:Performed By: #### CMP, DIFF CBC ####[address] [address] USAGlobulin (S) [Mass/Vol]3.1 g/dLNoBlowing Rock Hospital Physician GroupComment on above:Performed By: #### CMP, DIFF CBC ####[address] [address] USAGlucose [Mass/Vol]159 mg/uNIbqs10-895Pqe [facility] Physician GroupComment on above: Result Comment: Random Glucose Reference Range is dependent on time and content of last meal. Glucose of more than 200 mg/dL in a nonstressed, ambulatory subject supports the diagnosis of Diabetes Mellitus. ADA recommended reference rangePerformed By: #### CMP, DIFF CBC ####[place] [id number] USAPotassium [Moles/Vol]3.8 mmol/LNormal3.5-5.1 The [facility] Physician GroupComment on above:Performed By: #### CMP, DIFF CBC ####[place] [address] USAProtein [Mass/Vol]6.4 g/dLNormal6.4-8.9The [facility] Physician GroupComment on above: Performed By: #### CMP, DIFF CBC ####[place] [address] USASodium [Moles/Vol]142 mmol/DDmotmm833-091Jgs [facility] Physician GroupComment on above:Performed By: #### CMP, DIFF CBC ####[place] [address] USAUrea nitrogen [Mass/Vol]13 mg/dLNormal7-25The [facility] Physician GroupComment on above:Performed By: #### CMP, DIFF CBC ####[place] [address] USAComprehensive metabolic panelon 11-28-2024 Albumin [Mass/Vol]3.3 g/dLLow3.5 [...] mmol/LNOMS HealthcareCreatinine (U) [Mass/Vol]1.19 mg/dL0.60 - 1.20 mg/dLNOMS HealthcareCREATININE CLR CALC VTPVNZDT71.76NOMS HealthcareGFR/1.73 sq M.predicted MDRD (S/P/Bld) [Vol rate/Area]50.428 mL/min/{1.73_m2}[facility] Globulin (S) [Mass/Vol]3.1 g/dLNOMS HealthcareGlucose [Mass/Vol]159 mg/bUBvui40 - 100 mg/dLNOMS HealthcareComment on above:Random Glucose Reference Range is dependent on time and content of last meal. Glucose of more than 200 mg/dL in a nonstressed, ambulatory subject supports the diagnosis of Diabetes Mellitus. ADA recommended reference range Interpretation and review of laboratory resultsAbnormalNOMS HealthcarePotassium [Moles/Vol]3.8 mmol/L3.5 - 5.1 mmol/LNOMS HealthcareProtein [Mass/Vol]6.4 g/dL 6.4 - 8.9 g/dLNOMS HealthcareSodium [Moles/Vol]142 mmol/L136 - 145 mmol/LNOMS HealthcareUrea nitrogen [Mass/Vol]13 mg/dL7 - 25 mg/dLNOMS HealthcareNOMS HealthcareDiff and CBCon 81-25-1409Pagzueqqwtg distribution width (RBC) [Ratio] 15.0 %Olxpvy77.9-15.3The [facility] Physician GroupComment on above:Performed By: #### CMP, DIFF CBC ####[facility] [address] [place] [address] USAHematocrit (Bld) [Volume fraction]35.3 %Xzbzrs42.0-46.4The [facility] Physician GroupComment on above:Performed By: #### CMP, DIFF CBC ####[place] [address] [place] Hemoglobin (Bld) [Mass/Vol]11.5 g/dLLow11.8-15.4The [facility] Comment on above:Performed By: #### CMP, DIFF CBC ####[place] [address] [facility] (RBC) [Entitic mass]29.2 pgNormal 24.7-34.3The [facility] Physician GroupComment on above:Performed By: #### CMP, DIFF CBC ####[place] [address] [facility] CITYV (RBC) [Entitic vol]89.6 zTJoqexg49-725Bsp [facility] Comment on above:Performed By: #### CMP, DIFF CBC ####[place] [address] USAMean Corpuscular HGB Conc32.6 g/dL Rhfxkb28.0-35.0The [facility]ician [facility] CenterComment on above:Performed By: #### CMP, DIFF CBC ####[place] [address] USAMicrocytosisSlightNoBlowing Rock Hospital Physician [facility] CenterComment on above: Performed By: #### CMP, DIFF CBC ####[place] [address] USAPlatelet EstimateNormalNormalNormHCA Florida Oak Hill Hospital Physician GroupComment on above:Performed By: #### CMP, DIFF CBC ####[place] [phone] USAPlatelet mean volume (Bld) [Entitic vol]7.3 fLNormal6.3-10.7The [facility] Physician GroupComment on above:Result Comment: PERFORMED BY:[address] [place], [place] [phone] MEDICAL LEESA CHAUDHARY M.D.Performed By: #### CMP, DIFF CBC ####[address] [address] USAPlatelet MorphologyNormalNormalNoBlowing Rock Hospital Physician GroupComment on above:Result Comment: PERFORMED BY:[address] [place], [place] [phone] MEDICAL DIRECTORELAINE CHAUDHARY M.D.Performed By: #### CMP, DIFF CBC ####[address] [address] [place] Platelets (Bld) [#/Vol]169 10*3/aAZfdurj698-667Lkp [facility] Comment on above:Performed By: #### CMP, DIFF CBC ####[address] [address] USAPolychromasiaSlightNoBlowing Rock Hospital Physician [facility] CenterComment on above:Performed By: #### CMP, DIFF CBC ####[address] [address] USARBC (Bld) [#/Vol]3.94 10*6/uLNormal3.60-5.00The [facility] Physician GroupComment on above:Performed By: #### CMP, DIFF CBC ####[address] [address] USAReactive Lymphocytes2 %Normal0-12The [facility] Physician GroupComment on above:Performed By: #### CMP, DIFF CBC ####[address] [address] USAWBC (Bld) [#/Vol]3.1 10*3/uLLow3.8-11.6The [facility] Physician GroupComment on above:Performed By: #### CMP, DIFF CBC ####[address] [address] USAWhite Blood Count3.1 [CFU]/mLLow3.8-11.6The [facility] Physician GroupComment on above:Performed By: #### CMP, DIFF CBC ####[address] [address] USAEosinophils/100 leukocytes in Blood by Manual countOrdered By: Roxane Bills on 76-15-7896Szigdzvfevy/100 WBC (Bld)12 %High1-3FAshtabula General HospitalComment on above:Performed By: #### CMP, DIFF CBC ####[place] [address] [place] [address] USAErythrocyte morphology finding [Identifier] in BloodOrdered By: Roxane Bills on 76-64-0524GYT morphology finding Nom (Bld)N/AFAshtabula General HospitalLymphocytes/100 leukocytes in Blood by Manual countOrdered By: Roxane Bills on 45-65-9860Nwpcottcwck/100 WBC (Bld)25 %Bbkyod32-11TzalgmovtKettering HealthComment on above:Performed By: #### CMP, DIFF CBC ####[address] [address] USAMagnesium [Mass/volume] in Serum or PlasmaOrdered By: Sugey Cummins on 28-13-1504Lgxmtpkrd [Mass/Vol]1.4 mg/dLLow1.9-2.7FAshtabula General HospitalComment on above:Result Comment: PERFORMED BY:[address] [place], [place] [phone] MEDICAL DIRECTORELAINE CHAUDHARY M.D.Performed By: #### MG ####[address] [address] USAMicrocytes LM Ql (Bld)Ordered By: Roxane Bills on 36-83-8148Tqofqeigew Ql (Bld) SlightKettering HealthMonocytes/100 leukocytes in Blood by Manual countOrdered By: Roxane Bills on 58-16-5642Mlzufjfqo/100 WBC (Bld)6 %Normal 2-11Kettering HealthComment on above:Performed By: #### CMP, DIFF CBC ####[address] [address] USAPlatelet adequacy [Presence] in Blood by Light microscopyOrdered By: Roxane Bills on 95-62-4560Twyuhkpxh LM Ql (Bld)NormalNormUC HealthPlatelet morphology finding [Identifier] in BloodOrdered By: Roxane Bills on 47-67-8243Uxcfghxl morphology finding Nom (Bld)NormalNormUC HealthPolychromasia [Presence] in Blood by Light microscopyOrdered By: Roxane Bills on 28-78-5000Vjcyvpzrabrlc LM Ql (Bld)SlightGrant Hospitalegmented neutrophils/100 leukocytes in Blood by Manual countOrdered By: Roxane Bills on 56-51-5837Digkdcerz neutrophils/100 WBC (Bld)55 %Annmpg18-04 Kettering HealthComment on above:Performed By: #### CMP, DIFF CBC ####[facility] [address] [place] [address] [place] Variant lymphocytes/100 WBC Manual cnt (Bld)Ordered By: Roxane Bills on 11-28-2024 Variant lymphocytes/100 WBC (Bld)2 %0-12Kettering HealthAlanine aminotransferase [Enzymatic activity/volume] in Serum or PlasmaOrdered By: Roxane Bills on 90-41-2284LYA [Catalytic activity/Vol]55 U/LHigh7-52Kettering HealthComment on above:Performed By: #### CBC, CMP ####[facility] [address] [place] [address] USAAlbumin [Mass/volume] in Serum or Plasma by Bromocresol green (BCG) dye binding methoOrdered By: Roxane Bills on 70-83-4988Giugglh BCG dye [Mass/Vol]3.4 g/dLLow3.5-5.7FAshtabula General HospitalAlkaline phosphatase [Enzymatic activity/volume] in Serum or PlasmaOrdered By: Roxane Bills on 71-98-6633MFZ [Catalytic activity/Vol]106 U/L Kkzx94-486DpfswsuphKettering HealthComment on above:Performed By: #### CBC, CMP ####[facility] [place] [id number] USAAspartate aminotransferase [Enzymatic activity/volume] in Serum or Plasma Ordered By: Roxane Bills on 72-30-5100NZZ [Catalytic activity/Vol]29 U/LQikmhg14-04 Kettering HealthComment on above:Performed By: #### CBC, CMP ####[address] [address] [place] Basophils [#/volume] in Blood by Automated countOrdered By: Roxane Bills on 10-80-0743Xaxbdnsqe (Bld) [#/Vol]0.0 10*3/uLNormal0.0-0.2FAshtabula General HospitalComment on above:Result Comment: PERFORMED BY:[address] [place], [place] [phone] MEDICAL DIRECTORELAINE CHAUDHARY M.D.Performed By: #### CBC, CMP ####[place] [phone] USABasophils/100 leukocytes in Blood by Automated countOrdered By: Roxane Bills on 29-02-0800Yscnatuvz/100 WBC (Bld)0.3 %Normal.Kettering HealthComment on above:Performed By: #### CBC, CMP ####[place] [phone] USABilirubin.total [Mass/volume] in Serum or PlasmaOrdered By: Roxane Bills on 85-94-1226Dlnmijlwq [Mass/Vol]0.4 mg/dLNormal0.3-1.0K[facility] HealthComsheridan community hospital on above:Performed By: #### CBC, CMP ####[place] [address] USACBC W Auto Differential panel (Bld)on 87-88-7279Dbsrfpanb (Bld) [#/Vol]0 10*3/uL0.0 - 0.2 10*3/uLNOMS HealthcareBasophils/100 WBC Manual cnt (Syn fld)0.3 %.NOMS HealthcareEosinophils (Bld) [#/Vol]0.4 10*3/uL0.0 - 0.45 10*3/uLNOMS Healthcare Eosinophils/100 WBC Manual cnt (Syn fld)5.6 %.NOMS HealthcareErythrocyte distribution width (RBC) [Ratio]15 %11.9 - 15.3 %[facility] HealthcareHematocrit (Bld) [Volume fraction]36.4 %34.0 - 46.4 %[facility] HealthcareHemoglobin (Bld) [Mass/Vol] 11.9 g/dL11.8 - 15.4 g/dLUINTAH BASIN MEDICAL [facility]ENTER HealthcareInterpretation and review of laboratory resultsAbnormalUINTAH [facility] HealthcareLymphocytes (Bld) [#/Vol]0.5 10*3/uLLow1.00 - 4.8 10*3/uLNOMS HealthcareLymphocytes/100 WBC Manual cnt (Syn fld)6.8 %.[facility] HealthH (RBC) [Entitic mass]29.3 pg24.7 - 34.3 pgCarondelet HealthHC (RBC) [Mass/Vol]32.8 g/dL32.0 - 35.0 g/dLCarondelet HealthV (RBC) [Entitic vol]89.4 fL 80 - 100 fLUINTAH [facility] HealthcareMonocytes (Bld) [#/Vol]0.4 10*3/uL0.0 - 0.8 10*3/uL [facility] HealthcareMonocytes+Macrophages/100 WBC Manual cnt (Syn fld)6 %.[facility] HealthcareNeutrophils (Bld) [#/Vol]6.1 10*3/uL1.8 - 7.7 10*3/uLNOMS Healthcare Neutrophils/100 WBC Manual cnt (Syn fld)81.3 %.[facility] HealthcareNRBC0 /100{WBC}0 - 0.5 /100{WBC}[facility] HealthcarePlatelet mean volume (Bld) [Entitic vol]7.8 fL6.3 - 10.7 fLUINTAH BASIN [facility]ICAL [facility]ENTER HealthcarePlatelets (Bld) [#/Vol]221 10*3/uL150 - 450 10*3/uLNOMS HealthcareRBC LM.HPF (Urine sed) [#/Area]4.07 10*6/uL3.60 - 5.00 10*6/uLNOMS HealthcareWBC (Bld) [#/Vol]7.4 10*3/uL3.8 - 11.6 10*3/uLNOMS HealthcareWBC LM.HPF (Urine sed) [#/Area]7.4 [CFU]/mL3.8 - 11.6 [CFU]/mLNOMS HealthcareNOMS HealthcareCalcium [Mass/volume] in Serum or PlasmaOrdered By: Roxane Bills on 08-68-0355Hzhlowr [Mass/Vol]7.9 mg/dLLow8.6-10.3FAshtabula General HospitalComment on above:Performed By: #### CBC, CMP ####[place] [address] USACarbon dioxide, total [Moles/volume] in Serum or PlasmaOrdered By: Roxane Bills on 65-52-3258VH3 [Moles/Vol]40.1 mmol/LHigh21.0-31.0Kettering HealthComment on above:Performed By: #### CBC, CMP ####[place] [address] USAChloride [Moles/volume] in Serum or PlasmaOrdered By: Roxane Bills on 18-53-0700Rtpgoysh [Moles/Vol]97 mmol/BMbr89-796TiigambvpKettering HealthComment on above:Performed By: #### CBC, CMP ####[place] [address] [facility] Complete Blood Count Auto Diffon 93-60-0290Pyar Corpuscular HGB Conc32.8 g/dL Toktit00.0-35.0The [facility] Physician GroupComment on above:Performed By: #### CBC, CMP ####[place] [address] USANRBC%0.0 /100{WBC}Normal0-0.5The [facility] Physician GroupComment on above: Performed By: #### CBC, CMP ####[place] [address] USAWhite Blood Count7.4 [CFU]/mLNormal3.8-11.6The [facility] Physician GroupComment on above:Performed By: #### CBC, CMP ####[place] [id number] [facility] Comprehensive Metabolic Panelon 04-03-7132Eqcowbi [Mass/Vol]3.4 g/dLLow3.5-5.7 The [facility] Physician GroupComment on above:Performed By: #### CBC, CMP ####[address] [place] [address] [place] Creatinine Clr Calc Gankxypu95.52NormHCA Florida [facility] Physician [facility] CenterComment on above:Result Comment: PERFORMED BY:[address] [place], [place] [id number] MEDICAL LEESA CHAUDHARY M.D.Performed By: #### CBC, CMP ####[address] [place] [address] USAGFR/1.73 sq M.predicted MDRD (S/P/Bld) [Vol rate/Area]43.732 mL/min/{1.73_m2}NormalThe [facility] Physician [facility] CenterComment on above:Performed By: #### CBC, CMP ####[address] [address] USAComprehensive metabolic panelon 88-24-1653Ftjbwkj [Mass/Vol]3.4 g/dLLow3.5 - 5.7 g/dLNOWI HealthcareAlbumin/Globulin [Mass ratio] 1.3 {ratio}NOMS HealthcareALP [Catalytic activity/Vol]106 U/LHigh34 - 104 U/L NOMS HealthcareALT [Catalytic activity/Vol]55 U/LHigh7 - 52 U/LNOMS Healthcare Anion gap [Moles/Vol]9.8 mmol/L6.0 - 15.0NOMS HealthcareAST [Catalytic activity/Vol]29 U/L13 - 39 U/LNOMS HealthcareBilirubin [Mass/Vol]0.4 mg/dL0.3 - 1.0 mg/dLNOMS HealthcareCalcium [Mass/Vol]7.9 mg/dLLow8.6 - 10.3 mg/dLNOWI HealthcareChloride [Moles/Vol]97 mmol/LLow98 - 107 mmol/LNOMS HealthcareCO2 [Moles/Vol]40.1 mmol/LHigh21.0 - 31.0 mmol/LNOMS HealthcareCreatinine (U) [Mass/Vol]1.34 mg/dLHigh0.60 - 1.20 mg/dLNOMS HealthcareCREATININE CLR CALC YSHPLWLA78.52NOMS HealthcareGFR/1.73 sq M.predicted MDRD (S/P/Bld) [Vol rate/Area]43.732 mL/min/{1.73_m2}NOMS HealthcareGlobulin (S) [Mass/Vol]2.7 g/dL NOM HealthcareGlucose [Mass/Vol]123 mg/qXEaul13 - 100 mg/dLNOJohn J. Pershing [facility] Comment on above:Random Glucose Reference Range is dependent on time and content of last meal. Glucose of more than 200 mg/dL in a nonstressed, ambulatory subject supports the diagnosis of Diabetes Mellitus. ADA recommended reference range Interpretation and review of laboratory resultsAbnormalNOMS HealthcarePotassium [Moles/Vol]3.9 mmol/L3.5 - 5.1 mmol/LNOMS HealthcareProtein [Mass/Vol]6.1 g/dL Low6.4 - 8.9 g/dLNOWI HealthcareSodium [Moles/Vol]143 mmol/L136 - 145 mmol/LNOMS HealthcareUrea nitrogen [Mass/Vol]19 mg/dL7 - 25 mg/dLSac-Osage HospitalNOWI HealthcareCreatinine [Mass/volume] in Serum or PlasmaOrdered By: Roxaen Bills on 24-21-9905Lcszsaudtq [Mass/Vol]1.34 mg/dLHigh0.60-1.20Kettering HealthComment on above:Performed By: #### CBC, CMP ####[facility] [place] [address] USAEosinophils [#/volume] in Blood by Automated countOrdered By: Roxane Bills on 79-95-3893Xcdpipyafxu (Bld) [#/Vol]0.4 10*3/uLNormal0.0-0.45Kettering HealthComment on above:Performed By: #### CBC, CMP ####[facility] [address] [place] [address] USAEosinophils/100 leukocytes in Blood by Automated countOrdered By: Roxane Bills on 48-39-9520Cufljlmgejs/100 WBC (Bld)5.6 %Normal. Kettering HealthComment on above:Performed By: #### CBC, CMP ####[address] [address] [facility] Erythrocyte distribution width [Ratio] by Automated countOrdered By: Roxane Bills on 39-59-0292Twaibirhocr distribution width (RBC) [Ratio]15.0 %Fjspfb84.9-15.3 Kettering HealthComment on above:Performed By: #### CBC, CMP ####[place] [address] [facility] Erythrocytes [#/volume] in Blood by Automated countOrdered By: Roxane Bills on 94-51-7266MWK (Bld) [#/Vol]4.07 10*6/uLNormal3.60-5.00Kettering HealthComment on above:Performed By: #### CBC, CMP ####[place] [address] USAGlucose [Mass/volume] in Serum or PlasmaOrdered By: Roxane Bills on 11-98-3812Yltqqiw [Mass/Vol]123 mg/dLHigh 70-100Kettering HealthComment on above:Result Comment: Random Glucose Reference Range is dependent on time and content of last meal. Glucose of more than 200 mg/dL in a nonstressed, ambulatory subject supports the diagnosis of Diabetes Mellitus. ADA recommended reference rangePerformed By: #### CBC, CMP ####[address] [address] USAHematocrit [Volume Fraction] of Blood by Automated countOrdered By: Roxane Bills on 82-25-2291Uddmwabpht (Bld) [Volume fraction]36.4 %Rljysp97.0-46.4 Kettering HealthComment on above:Performed By: #### CBC, CMP ####[place] [address] [facility] Hemoglobin [Mass/volume] in BloodOrdered By: Roxane Bills on 27-83-5610Orpsqrkmcq (Bld) [Mass/Vol]11.9 g/qLBqzclo07.8-15.4FAshtabula General HospitalComment on above:Performed By: #### CBC, CMP ####[place] [address] USALeukocytes [#/volume] corrected for nucleated erythrocytes in Blood by Automated counOrdered By: Roxane Bills on 25-43-2770EDU corrected for nucl RBC Auto (Bld) [#/Vol]7.4 10*3/uL3.8-11.6FAshtabula General HospitalLeukocytes [#/volume] in Blood by Automated countOrdered By: Roxane Bills on 87-03-4969XSE (Bld) [#/Vol]7.4 10*3/uLNormal3.8-11.6FAshtabula General HospitalComment on above:Performed By: #### CBC, CMP ####[place] [address] USALymphocytes [#/volume] in Blood by Automated countOrdered By: Roxane Bills on 11-21-2024 Lymphocytes (Bld) [#/Vol]0.5 10*3/uLLow1.00-4.8[facility] Comment on above:Performed By: #### CBC, CMP ####[place] [address] USALymphocytes/100 leukocytes in Blood by Automated countOrdered By: Roxane Bills on 22-29-5771Sksmzguwbrc/100 WBC (Bld)6.8 %Normal.Kettering HealthComment on above:Performed By: #### CBC, CMP ####[place] [address] [facility] [Entitic mass] by Automated countOrdered By: Roxane Bills on 54-52-2113ZTV (RBC) [Entitic mass]29.3 lgTkozqt44.7-34.3FAshtabula General Hospital Comment on above:Performed By: #### CBC, CMP ####[place] [address] [facility] Auto (RBC) [Mass/Vol]Ordered By: Roxane Bills on 15-51-4298WWNW (RBC) [Mass/Vol]32.8 g/dL32.0-35.0Kettering HealthMCV [Entitic volume] by Automated countOrdered By: Roxane Bills on 27-21-7866QBN (RBC) [Entitic vol]89.4 aTFrjwfg29-962VlyydatcfKettering HealthComment on above:Performed By: #### CBC, CMP ####[address] [address] USAMonocytes [#/volume] in Blood by Automated countOrdered By: Roxane Bills on 25-74-6563Fsntdmhfh (Bld) [#/Vol]0.4 10*3/uLNormal0.0-0.8Kettering HealthComment on above:Performed By: #### CBC, CMP ####[address] [address] USAMonocytes/100 leukocytes in Blood by Automated countOrdered By: Roxane Bills on 75-02-8237Ntbodjtef/100 WBC (Bld)6.0 %Normal.Kettering HealthComment on above:Performed By: #### CBC, CMP ####[address] [address] USANeutrophils [#/volume] in Blood by Automated countOrdered By: Roxane Bills on 41-60-0980Yxifhckjdkj (Bld) [#/Vol]6.1 10*3/uLNormal1.8-7.7FAshtabula General HospitalComment on above:Performed By: #### CBC, CMP ####[address] [address] USANeutrophils/100 leukocytes in Blood by Automated countOrdered By: Roxane Bills on 68-77-7579Scfvdlsdzxr/100 WBC (Bld)81.3 %Normal. Kettering HealthComment on above:Performed By: #### CBC, CMP ####[address] [address] USANo Panel InformationOrdered By: Roxane Bills on 18-53-857259.732 mL/MinKettering Health46.52Kettering HealthNucleated erythrocytes [Presence] in Blood by Automated countOrdered By: Roxane Bills on 64-25-3856Ndttksxjy RBC Auto Ql (Bld)0.0 /100{WBC}0-0.5FAshtabula General HospitalPlatelet mean volume [Entitic volume] in Blood by Automated count Ordered By: Roxane Bills on 07-22-8683Hfvkjkix mean volume (Bld) [Entitic vol]7.8 fLNormal6.3-10.7FAshtabula General HospitalComment on above:Performed By: #### CBC, CMP ####[address] [address] USAPlatelets [#/volume] in Blood by Automated countOrdered By: Roxane Bills on 86-75-5908Jdjwoybdg (Bld) [#/Vol]221 10*3/dSSkqbzc691-688CzszodrqmKettering HealthComment on above:Performed By: #### CBC, CMP ####[place] [id number] USAPotassium [Moles/volume] in Serum or PlasmaOrdered By: Roxane Bills on 39-57-1831Nkeqktgne [Moles/Vol]3.9 mmol/LNormal3.5-5.1FAshtabula General HospitalComment on above:Performed By: #### CBC, CMP ####[address] [address] USAProtein [Mass/volume] in Serum or PlasmaOrdered By: Roxane Bills on 99-47-1218Fyhyrtm [Mass/Vol]6.1 g/dLLow6.4-8.9Kettering HealthComment on above:Performed By: #### CBC, CMP ####[place] [id number] USASerum globulin measurement by calculation (mass/volume)Ordered By: Roxane Bills on 11-21-2024 Globulin (S) [Mass/Vol]2.7 g/dLNoSelect Medical Specialty Hospital - YoungstownComment on above:Performed By: #### CBC, CMP ####[address] [place] [address] USASerum or plasma albumin/globulin mass ratioOrdered By: Roxane Bills on 04-70-2296Vxlrfya/Globulin [Mass ratio]1.3 {ratio}Normal Kettering HealthComment on above:Performed By: #### CBC, CMP ####[address] [address] USASerum or plasma anion gap determinationOrdered By: Roxane Bills on 78-12-7352Auocm gap [Moles/Vol]9.8 mmol/LNormal6.0-15.0Kettering HealthComment on above:Performed By: #### CBC, CMP ####[place] [id number] USASodium [Moles/volume] in Serum or PlasmaOrdered By: Rxoane Bills on 08-46-6641Xrnhsc [Moles/Vol]143 mmol/WClzcbl298-306NuijpbpwjKettering HealthComment on above:Performed By: #### CBC, CMP ####[place] [id number] USAUrea nitrogen [Mass/volume] in Serum or PlasmaOrdered By: Roxane Bills on 47-79-9631Jllc nitrogen [Mass/Vol]19 mg/dLNormal7-25Kettering HealthComment on above:Performed By: #### CBC, CMP ####[address] [address] USAECH echo transthoracicon 12-33-0581ZCY echo transthoracicNormCrystal Clinic Orthopedic Centere [facility] Physician GroupGlucose (Bld) [Mass/Vol]on 69-24-9397Kxuqpbb Blood, YUQ557 mg/dLNOWI HealthcareLaboratory - Hematology and Cell countson 46-20-1647IvT1e (Bld) [Mass fraction]12.6 %[facility] HealthcareNo Panel Informationon 92-92-7804GNQD HealthcareHBV core IgM IA Qlon 14-54-8996TMPVUOADK B CORE ANTIBODYNegativeNegativeNOWI HealthcareComment on above:Performed at: [facility] [id number] [place] Doffer: Jhoan Rich PhD, Phone: [phone] HBV surface Ab IA Qnon 68-04-3661CYAUCLFTU B SURFACE ANTIBODYReactive.NOMS HealthcareComment on above:Non Reactive: Not immune to HBV infection. Equivocal: Unable to determine if anti-HBs is present at levels consistent with immunity. Reactive: Anti-HBs concentration detected at greater than 10 mIU/mL. Individual is considered to be immune to infection with HBV. HEPATITIS B SURFACE ANTIGEN ([facility])on 13-42-2217EHVPV SCREENNegativeNegativeNOMS HealthcareHcv antibody rfx to quant pcron 89-14-2728GBGCSTIAC C VIRUS ANTIBODY Non-ReactiveNon ReactiveNOMS HealthcareINTERPRETATION HEPATITIS CComment.NOMS HealthcareComment on above:Not infected with HCV unless early or acute infection is suspected (which may be delayed in an immunocompromised individual), or other evidence exists to indicate HCV infection. No Panel Informationon 09-68-8477CMFI HealthcareCBC W Auto Differential panel (Bld)on 36-78-9054Uoeewgcws (Bld) [#/Vol]0 10*3/uL0.0 - 0.2 10*3/uLNOMS HealthcareBasophils/100 WBC Manual cnt (Syn fld)0.4 %.NOMS HealthcareEosinophils (Bld) [#/Vol]0.4 10*3/uL0.0 - 0.45 10*3/uLNOMS HealthcareEosinophils/100 WBC Manual cnt (Syn fld)3.4 %.NOM HealthcareErythrocyte distribution width (RBC) [Ratio]14.5 %11.9 - 15.3 %NOMS HealthcareHematocrit (Bld) [Volume fraction]40.8 %34.0 - 46.4 %NOM HealthcareHemoglobin (Bld) [Mass/Vol]13 g/dL11.8 - 15.4 g/dL NOM HealthcareInterpretation and review of laboratory resultsAbnormalNOWI HealthcareLymphocytes (Bld) [#/Vol]2.4 10*3/uL1.00 - 4.8 10*3/uLNOMS Healthcare Lymphocytes/100 WBC Manual cnt (Syn fld)23.7 %.[facility] HospitalMCH (RBC) [Entitic mass]29 pg24.7 - 34.3 pgCarondelet HealthHC (RBC) [Mass/Vol]31.9 g/dLLow32.0 - 35.0 g/dLCarondelet HealthV (RBC) [Entitic vol]91 fL80 - 100 fLSac-Osage Hospital Monocytes (Bld) [#/Vol]0.7 10*3/uL0.0 - 0.8 10*3/uLNOJohn J. Pershing [facility] Monocytes+Macrophages/100 WBC Manual cnt (Syn fld)6.3 %.[facility] Neutrophils (Bld) [#/Vol]6.8 10*3/uL1.8 - 7.7 10*3/uLSac-Osage Hospital Neutrophils/100 WBC Manual cnt (Syn fld)66.2 %.[facility] HospitalNRBC0 /100{WBC}0 - 0.5 /100{WBC}[facility] HealthcarePlatelet mean volume (Bld) [Entitic vol]7.5 fL6.3 - 10.7 fLUINTAH BASIN MEDICAL CENTER HealthcarePlatelets (Bld) [#/Vol]158 10*3/uL150 - 450 10*3/uLSac-Osage HospitalRBC LM.HPF (Urine sed) [#/Area]4.49 10*6/uL3.60 - 5.00 10*6/uLNOJohn J. Pershing VA Medical CenterWBC (Bld) [#/Vol]10.3 10*3/uL3.8 - 11.6 10*3/uLNOJohn J. Pershing VA Medical CenterWBC LM.HPF (Urine sed) [#/Area]10.3 [CFU]/mL3.8 - 11.6 [CFU]/mLNOMS [facility] HealthcareComplete Blood Count Auto Diffon 13-57-8165Pnqbvokur (Bld) [#/Vol]0.0 10*3/uLNormal0.0-0.2The [facility] Physician GroupComment on above:Result Comment: PERFORMED BY:[place] [address] [place], [place] [phone] MEDICAL DIRECTORELAINE CHAUDHARY M.D.Performed By: #### HBCAB, HBSAG, HCV RX PCR, HBSAB ####[facility] ,#### CMP, CBC ####[place] [address] [place] Basophils/100 WBC (Bld)0.4 %Normal.The [facility] Physician GroupComment on above:Performed By: #### HBCAB, HBSAG, HCV RX PCR, HBSAB ####[facility] ,#### CMP, CBC ####[place] [address] USAEosinophils (Bld) [#/Vol]0.4 10*3/uLNormal0.0-0.45 The [facility] Physician GroupComment on above:Performed By: #### HBCAB, HBSAG, HCV RX PCR, HBSAB ####[facility] ,#### CMP, CBC ####[place] [address] USAEosinophils/100 WBC (Bld)3.4 %Normal.The [facility] Physician GroupComment on above:Performed By: #### HBCAB, HBSAG, HCV RX PCR, HBSAB ####[facility] ,#### CMP, CBC ####[place] [address] USAErythrocyte distribution width (RBC) [Ratio]14.5 %Ycorxm10.9-15.3The [facility] Physician GroupComment on above:Performed By: #### HBCAB, HBSAG, HCV RX PCR, HBSAB ####[facility] ,#### CMP, CBC ####[place] [address] USAHematocrit (Bld) [Volume fraction]40.8 %Normal 34.0-46.4The [facility] Physician GroupComment on above:Performed By: #### HBCAB, HBSAG, HCV RX PCR, HBSAB ####[facility] ,#### CMP, CBC ####[place] [address] USAHemoglobin (Bld) [Mass/Vol]13.0 g/zXImslgp35.8-15.4The [facility] Physician GroupComment on above: Performed By: #### HBCAB, HBSAG, HCV RX PCR, HBSAB ####[facility] ,#### CMP, CBC ####[place] [address] USALymphocytes (Bld) [#/Vol]2.4 10*3/uLNormal1.00-4.8 The [facility] Physician GroupComment on above:Performed By: #### HBCAB, HBSAG, HCV RX PCR, HBSAB ####[facility] ,#### CMP, CBC ####[place] [address] USALymphocytes/100 WBC (Bld)23.7 %Normal.The [facility] Physician GroupComment on above:Performed By: #### HBCAB, HBSAG, HCV RX PCR, HBSAB ####[facility] ,#### CMP, CBC ####[address] (RBC) [Entitic mass]29.0 alJbcylv55.7-34.3The [facility] Physician GroupComment on above: Performed By: #### HBCAB, HBSAG, HCV RX PCR, HBSAB ####[facility] ,#### CMP, CBC ####[address] (RBC) [Entitic vol]91.0 sSLcwxvl59-852Tun [facility] Physician GroupComment on above:Performed By: #### HBCAB, HBSAG, HCV RX PCR, HBSAB ####[facility] ,#### CMP, CBC ####[place] [address] USAMean Corpuscular HGB Conc31.9 g/dLLow32.0-35.0The [facility] Physician GroupComment on above:Performed By: #### HBCAB, HBSAG, HCV RX PCR, HBSAB ####[facility] ,#### CMP, CBC ####[place] [address] [place] Monocytes (Bld) [#/Vol]0.7 10*3/uLNormal0.0-0.8The [facility] Comment on above:Performed By: #### HBCAB, HBSAG, HCV RX PCR, HBSAB ####[facility] ,#### CMP, CBC ####[place] [id number] USAMonocytes/100 WBC (Bld)6.3 %Normal.The [facility] Physician GroupComment on above:Performed By: #### HBCAB, HBSAG, HCV RX PCR, HBSAB ####[facility] ,#### CMP, CBC ####[place] [address] USANeutrophils (Bld) [#/Vol]6.8 10*3/uL Normal1.8-7.7The [facility] Physician GroupComment on above:Performed By: #### HBCAB, HBSAG, HCV RX PCR, HBSAB ####[facility] ,#### CMP, CBC ####[place] [address] [place] Neutrophils/100 WBC (Bld)66.2 %Normal.The [facility] Physician GroupComment on above:Performed By: #### HBCAB, HBSAG, HCV RX PCR, HBSAB ####[facility] ,#### CMP, CBC ####[place] [address] USANRBC%0.0 /100{WBC}Normal0-0.5The [facility] Physician GroupComment on above:Performed By: #### HBCAB, HBSAG, HCV RX PCR, HBSAB ####[facility] ,#### CMP, CBC ####[address] [place] [address] USAPlatelet mean volume (Bld) [Entitic vol]7.5 fL Normal6.3-10.7The [facility] Physician GroupComment on above:Performed By: #### HBCAB, HBSAG, HCV RX PCR, HBSAB ####[facility] ,#### CMP, CBC ####[address] [address] [place] Platelets (Bld) [#/Vol]158 10*3/jHWealuu252-878Uoe [facility] Comment on above:Performed By: #### HBCAB, HBSAG, HCV RX PCR, HBSAB ####[facility] ,#### CMP, CBC ####[address] [address] USARBC (Bld) [#/Vol]4.49 10*6/uLNormal3.60-5.00The [facility] Physician GroupComment on above:Performed By: #### HBCAB, HBSAG, HCV RX PCR, HBSAB ####[facility] ,#### CMP, CBC ####[place] [address] USAWBC (Bld) [#/Vol]10.3 10*3/uL Normal3.8-11.6The [facility] Physician GroupComment on above:Performed By: #### HBCAB, HBSAG, HCV RX PCR, HBSAB ####[facility] ,#### CMP, CBC ####[address] [address] USAWhite Blood Count10.3 [CFU]/mLNormal3.8-11.6The [facility] Physician GroupComment on above:Performed By: #### HBCAB, HBSAG, HCV RX PCR, HBSAB ####[facility] ,#### CMP, CBC ####[address] [address] USAComprehensive Metabolic Panelon 33-25-9327Fgbsieo [Mass/Vol]3.5 g/dLNormal3.5-5.7The [facility] Physician GroupComment on above: Performed By: #### HBCAB, HBSAG, HCV RX PCR, HBSAB ####[facility] ,#### CMP, CBC ####[address] [address] USAAlbumin/Globulin [Mass ratio]1.1 {ratio}NormalThe [facility] Physician GroupComment on above:Performed By: #### HBCAB, HBSAG, HCV RX PCR, HBSAB ####[facility] ,#### CMP, CBC ####[place] [address] USAALP [Catalytic activity/Vol] 165 U/ONoce35-934Lal [facility] Physician GroupComment on above:Performed By: #### HBCAB, HBSAG, HCV RX PCR, HBSAB ####[facility] ,#### CMP, CBC ####[place] [address] USAALT [Catalytic activity/Vol]49 U/LNormal7-52The [facility] Physician GroupComment on above:Performed By: #### HBCAB, HBSAG, HCV RX PCR, HBSAB ####[facility] ,#### CMP, CBC ####[place] [address] USAAnion gap [Moles/Vol]12.0 mmol/LNormal6.0-15.0The [facility] Physician GroupComment on above:Performed By: #### HBCAB, HBSAG, HCV RX PCR, HBSAB ####[facility] ,#### CMP, CBC ####[place] [address] USAAST [Catalytic activity/Vol]22 U/BUvlagl68-82Dsa [facility] Physician GroupComment on above:Performed By: #### HBCAB, HBSAG, HCV RX PCR, HBSAB ####[facility] ,#### CMP, CBC ####[place] [address] [place] Bilirubin [Mass/Vol]0.3 mg/dLNormal0.3-1.0The [facility] Physician GroupComment on above:Performed By: #### HBCAB, HBSAG, HCV RX PCR, HBSAB ####[facility] ,#### CMP, CBC ####[place] [address] USACalcium [Mass/Vol]9.0 mg/dLNormal8.6-10.3The [facility] Physician GroupComment on above:Performed By: #### HBCAB, HBSAG, HCV RX PCR, HBSAB ####[facility] ,#### CMP, CBC ####[place] [address] USAChloride [Moles/Vol]93 mmol/L Xfg08-810Pii [facility] Physician GroupComment on above:Performed By: #### HBCAB, HBSAG, HCV RX PCR, HBSAB ####[facility] ,#### CMP, CBC ####[place] [address] USACO2 [Moles/Vol]35.5 mmol/LHigh21.0-31.0The [facility] Physician GroupComment on above:Performed By: #### HBCAB, HBSAG, HCV RX PCR, HBSAB ####[facility] ,#### CMP, CBC ####[place] [address] [place] Creatinine [Mass/Vol]1.38 mg/dLHigh0.60-1.20The [facility] Physician GroupComment on above:Performed By: #### HBCAB, HBSAG, HCV RX PCR, HBSAB ####[facility] ,#### CMP, CBC ####[place] [address] USACreatinine Clr Calc Gjkgvbim75.57NormalThe [facility] Physician GroupComment on above:Result Comment: PERFORMED BY:[address] [place], [place] [phone] MEDICAL DIRECTORELAINE CHAUDHARY M.D.Performed By: #### HBCAB, HBSAG, HCV RX PCR, HBSAB ####[facility] ,#### CMP, CBC ####[address] [address] USAGFR/1.73 sq M.predicted MDRD (S/P/Bld) [Vol rate/Area]42.215 mL/min/{1.73_m2}NormalThe [facility] Physician GroupComment on above:Performed By: #### HBCAB, HBSAG, HCV RX PCR, HBSAB ####[facility] ,#### CMP, CBC ####[place] [address] USAGlobulin (S) [Mass/Vol]3.3 g/dLNoBlowing Rock Hospital Physician [facility] CenterComment on above:Performed By: #### HBCAB, HBSAG, HCV RX PCR, HBSAB ####[facility] ,#### CMP, CBC ####[place] [address] USAGlucose [Mass/Vol]551 mg/dLOff scale qetc09-961Cva [facility]ician [facility] CenterComment on above:Result Comment: Critical Result Called to [...] RX PCR, HBSAB ####[facility] ,#### CMP, CBC ####[place] [address] USAPotassium [Moles/Vol]3.5 mmol/LNormal3.5-5.1The [facility] Physician GroupComment on above:Performed By: #### HBCAB, HBSAG, HCV RX PCR, HBSAB ####[facility] ,#### CMP, CBC ####[place] [address] USAProtein [Mass/Vol]6.8 g/dL Normal6.4-8.9The [facility] Physician GroupComment on above:Performed By: #### HBCAB, HBSAG, HCV RX PCR, HBSAB ####[facility] ,#### CMP, CBC ####[place] [address] USASodium [Moles/Vol]137 mmol/JDwwrpf994-434Cpc [facility] Physician GroupComment on above: Performed By: #### HBCAB, HBSAG, HCV RX PCR, HBSAB ####[facility] ,#### CMP, CBC ####[place] [address] USAUrea nitrogen [Mass/Vol]28 mg/dLHigh7-25The [facility] Physician GroupComment on above:Performed By: #### HBCAB, HBSAG, HCV RX PCR, HBSAB ####[facility] ,#### CMP, CBC ####[place] [address] USAComprehensive metabolic panel on 36-53-2048Uhtzvnm [Mass/Vol]3.5 g/dL3.5 - 5.7 g/dLNOWI Healthcare Albumin/Globulin [Mass ratio]1.1 {ratio}NOMS HealthcareALP [Catalytic activity/Vol]165 U/LHigh34 - 104 U/LNOMS HealthcareALT [Catalytic activity/Vol] 49 U/L7 - 52 U/LNOMS HealthcareAnion gap [Moles/Vol]12 mmol/L6.0 - 15.0NOMS HealthcareAST [Catalytic activity/Vol]22 U/L13 - 39 U/LNOMS HealthcareBilirubin [Mass/Vol]0.3 mg/dL0.3 - 1.0 mg/dLNOMS HealthcareCalcium [Mass/Vol]9 mg/dL8.6 - 10.3 mg/dLNOMS HealthcareChloride [Moles/Vol]93 mmol/LLow98 - 107 mmol/LNOMS HealthcareCO2 [Moles/Vol]35.5 mmol/LHigh21.0 - 31.0 mmol/LNOMS Healthcare Creatinine (U) [Mass/Vol]1.38 mg/dLHigh0.60 - 1.20 mg/dLNOMS Healthcare CREATININE CLR CALC TUVSFWCU51.57NOMS HealthcareGFR/1.73 sq M.predicted MDRD (S/P/Bld) [Vol rate/Area]42.215 mL/min/{1.73_m2}NOMS HealthcareGlobulin (S) [Mass/Vol]3.3 g/dLNOMS HealthcareGlucose [Mass/Vol]551 mg/dLCritically high70 - 100 mg/dLNOMS HealthcareComment on above:Critical Result Called to and read back by: ROXANE LEONE/DMITRY at: 11/10/2024 15:42:37 by:[id number] Random Glucose Reference Range is dependent on [...] - 25 mg/dLNOMS HealthcareNOMS HealthcareDaratumumab Molecular Genotypeon 74-31-4858Fvowkvqhhwo Molecular GenotypeNoBlowing Rock Hospital Physician GroupComment on above:Result Comment: sent to [facility] on 11/10/24PERFORMED BY:[facility] [place], [place] [phone] MEDICAL DIRECTORELAINE CHAUDHARY M.D. Hep C Ab wRfx to Qnt PCRon 53-19-6849Qosqpxsnt C Virus AntibodyNon-Reactive NormalNon ReactiveThe [facility] Physician GroupComment on above:Performed By: #### HBCAB, HBSAG, HCV RX PCR, HBSAB ####[facility] ,#### CMP, CBC ####[place] [address] [place] Interpretation Hepatitis CCommentNormal.The [facility] Physician GroupComment on above:Result Comment: Not infected with HCV unless early or acute infection is suspected (which may be delayed in an immunocompromised individual), or other evidence exists to indicate HCV infection.Performed By: #### HBCAB, HBSAG, HCV RX PCR, HBSAB ####[facility] ,#### CMP, CBC ####[place] [address] USAHepatitis B Core Antibodyon 03-57-9337Wiargslwm B Core AntibodyNegativeNormalNegativeThe [facility] Physician [facility] CenterComment on above:Result Comment: Performed at: - [place] [address] [place]: Jhoan Rich PhD, Phone: [phone] By: #### HBCAB, HBSAG, HCV RX PCR, HBSAB ####[facility] ,#### CMP, CBC ####[place] [address] USAHepatitis B Surface Antibodyon 83-62-1794Mhgwhksbp B Surface AntibodyReactiveNormal.The [facility] Physician GroupComment on above: Result Comment: Non Reactive: Not immune to HBV infection. Equivocal: Unable to determine if anti-HBs is present at levels consistent with immunity. Reactive: Anti-HBs concentration detected at greater than 10 mIU/mL. Individual is considered to be immune to infection with HBV.Performed By: #### HBCAB, HBSAG, HCV RX PCR, HBSAB ####[facility] ,#### CMP, CBC ####[place] [address] USAHepatitis B Surface Antigenon 60-22-1589HJyWr ScreenNegativeNormalNegativeGulf [facility]reeze [facility] Physician [facility] Comment on above:Result Comment: PERFORMED BY:[address] [place], [place] [phone] MEDICAL DIRECTORELAINE CHAUDHARY M.D.Performed By: #### HBCAB, HBSAG, HCV RX PCR, HBSAB ####[facility] ,#### CMP, CBC ####[address] [address] USAHepatitis C virus IgG Ab [Presence] in Serum or Plasma by ImmunoassayOrdered By: Roxane Bills on 54-43-6294HKI IgG IA Ql Non-ReactiveNon ReactiveKettering HealthNo Panel Information Ordered By: Roxane Bills on 96-02-1258Hnlropk.[facility] Serum hepatitis B virus surface antibody detectionOrdered By: Roxane Bills on 90-32-2502EYI surface Ab Ql (S)Reactive.Grant Hospitalerum or plasma hepatitis B virus surface antigen detection by immunoassayOrdered By: Roxane Bills on 65-56-1356WRG surface Ag IA QlNegativeNegativeKettering HealthType and Screenon 08-23-7148OIH and Rh group Nom (Bld)Blood group A Rh(D) positiveNormalThe [facility]ician [facility] CenterComprehensive Metabolic Panel on 15-03-5694Tmdhwck [Mass/Vol]4.1 g/dLNormal3.5-5.7The [facility]ician [facility] CenterComment on above:Performed By: #### URIC, CMP ####[address] [address] USAAlbumin/Globulin [Mass ratio] 1.1 {ratio}NormalThe [facility] Medical CenterComment on above:Performed By: #### URIC, CMP ####[address] [address] USAALP [Catalytic activity/Vol]149 U/XAbuf17-650Yqy [facility] CenterComment on above:Performed By: #### URIC, CMP ####[address] [address] USAALT [Catalytic activity/Vol]42 U/LNormal7-52The [facility] Physician GroupComment on above:Performed By: #### URIC, CMP ####[place] [address] USAAnion gap [Moles/Vol]12.6 mmol/LNormal6.0-15.0The [facility] Comment on above:Performed By: #### URIC, CMP ####[place] [address] USAAST [Catalytic activity/Vol]23 U/L Sgadwo83-85Kpi [facility] Physician GroupComment on above:Performed By: #### URIC, CMP ####[place] [address] USABilirubin [Mass/Vol]0.3 mg/dLNormal0.3-1.0The [facility] Comment on above:Performed By: #### URIC, CMP ####[place] [address] USACalcium [Mass/Vol]9.0 mg/dLNormal 8.6-10.3The [facility] Physician GroupComment on above:Performed By: #### URIC, CMP ####[place] [address] [place] Chloride [Moles/Vol]98 mmol/EUetvwk29-876Fvw [facility] Physician GroupComment on above:Performed By: #### URIC, CMP ####[place] [id number] USACO2 [Moles/Vol]33.6 mmol/LHigh21.0-31.0The [facility] Physician GroupComment on above:Performed By: #### URIC, CMP ####[place] [address] [place] Creatinine [Mass/Vol]1.33 mg/dLHigh0.60-1.20The [facility] Physician GroupComment on above:Performed By: #### URIC, CMP ####[place] [address] USACreatinine Clr Calc Tfwadnsr25.51NormalThCentral Alabama VA Medical Center–Tuskegeelands Physician GroupComment on above:Performed By: #### URIC, CMP ####[place] [address] [place] GFR/1.73 sq M.predicted MDRD (S/P/Bld) [Vol rate/Area]44.401 mL/min/{1.73_m2} NormalThe [facility] Physician GroupComment on above:Performed By: #### URIC, CMP ####[place] [address] [place] Globulin (S) [Mass/Vol]3.6 g/dLNoBlowing Rock Hospital Physician GroupComment on above:Performed By: #### URIC, CMP ####[place] [address] USAGlucose [Mass/Vol]292 mg/yWVvbv29-092Izj [facility] Physician GroupComment on above:Result Comment: Random Glucose Reference Range is dependent on time and content of last meal. Glucose of more than 200 mg/dL in a nonstressed, ambulatory subject supports the diagnosis of Diabetes Mellitus. ADA recommended reference rangePerformed By: #### URIC, CMP ####[place] [address] USAPotassium [Moles/Vol] 4.2 mmol/LNormal3.5-5.1The [facility] Physician GroupComment on above:Performed By: #### URIC, CMP ####[place] [address] USAProtein [Mass/Vol]7.7 g/dLNormal6.4-8.9The [facility] Comment on above:Performed By: #### URIC, CMP ####[place] [address] USASodium [Moles/Vol]140 mmol/LNormal 136-145The [facility] Physician GroupComment on above:Performed By: #### URIC, CMP ####[place] [address] [place] Urea nitrogen [Mass/Vol]33 mg/dLHigh7-25The [facility] Physician GroupComment on above:Performed By: #### URIC, CMP ####[facility] [address] [place] [address] [facility]ICComprehensive metabolic panelon 10-04-3124Wmwgcth [Mass/Vol]4.1 g/dL3.5 - 5.7 g/dLNOMS HealthcareAlbumin/Globulin [Mass [...] mmol/LNOMS HealthcareCreatinine (U) [Mass/Vol]1.33 mg/dLHigh0.60 - 1.20 mg/dLNOMS HealthcareCREATININE CLR CALC EUSNVDOO84.51NOMS Healthcare GFR/1.73 sq M.predicted MDRD (S/P/Bld) [Vol rate/Area]44.401 mL/min/{1.73_m2} NOMS HealthcareGlobulin (S) [Mass/Vol]3.6 g/dLNOMS HealthcareGlucose [Mass/Vol] 292 mg/sMBqka71 - 100 mg/dLNOMS HealthcareComment on above:Random Glucose Reference Range is dependent on time and content of last meal. Glucose of more than 200 mg/dL in a nonstressed, ambulatory subject supports the diagnosis of Diabetes Mellitus. ADA recommended reference range Potassium [Moles/Vol]4.2 mmol/L3.5 - 5.1 mmol/LNOMS HealthcareProtein [Mass/Vol] 7.7 g/dL6.4 - 8.9 g/dLNOMS HealthcareSodium [Moles/Vol]140 mmol/L136 - 145 mmol/LNOMS HealthcareUrea nitrogen [Mass/Vol]33 mg/dLHigh7 - 25 mg/dLUINTAH BASIN MEDICAL [facility]ENTER HealthcareNo Panel Informationon 73-09-8597Osgfkorcpsmbwa and review of laboratory resultsAbnormalSac-Osage HospitalNOWI HealthcarePET NaF bone init (nopr) on 87-41-6810SAS NaF bone init (nopr)NormalThe [facility] Physician GroupUrate [Mass/volume] in Serum or PlasmaOrdered By: Roxane Bills on 14-95-1794Mqpkd [Mass/Vol]6.7 mg/dLHigh2.3-6.6FAshtabula General HospitalComment on above: Result Comment: PERFORMED BY:[place] [address] [place], [place] [phone] MEDICAL LEESA CHAUDHARY M.D.Performed By: #### URIC, CMP ####[place] [address] [place] [address] USAUric acidon 76-12-9052Bdwke [Mass/Vol]6.7 mg/dLHigh 2.3 - 6.6 mg/dLSac-Osage HospitalPATHOLOGY REQUEST FOR LAB CORPon 09-22-2024 PATHOLOGY REQUEST FOR LAB CORPSac-Osage HospitalComment on above:See report. Scanned copy available in EMR.NOMS HealthcareBasophils [#/volume] in Blood by Automated countOrdered By: Roxane Bills on 86-46-3019Dogpkdrnl (Bld) [#/Vol]0.1 10*3/uLNormal0.0-0.2FAshtabula General HospitalComment on above:Order Comment: STAT FOR BXResult Comment: PERFORMED BY:[place] [address] [address] [place], [place] [phone] MEDICAL LEESA CHAUDHARY M.D.Performed By: #### PP, CBC ####[facility] [address] [place] [address] USABasophils/100 leukocytes in Blood by Automated countOrdered By: Roxane Bills on 18-62-9307Ochnjgnjf/100 WBC (Bld)0.6 %Normal.[facility]tering HealthComment on above:Order Comment: STAT FOR BXPerformed By: #### PP, CBC ####[facility] [address] [place] [address] [facility] W Auto Differential panel (Bld)on 94-14-8669Gnzgujdxi (Bld) [#/Vol]0.1 10*3/uL0.0 - 0.2 10*3/uLNOMS Healthcare Basophils/100 WBC Manual cnt (Syn fld)0.6 %.[facility] HealthcareEosinophils (Bld) [#/Vol]0.4 10*3/uL0.0 - 0.45 10*3/uLNOMS HealthcareEosinophils/100 WBC Manual cnt (Syn fld)3.8 %.[facility] HospitalErythrocyte distribution width (RBC) [Ratio] 15.5 %High11.9 - 15.3 %[facility] HealthcareHematocrit (Bld) [Volume fraction]40.6 % 34.0 - 46.4 %[facility] HospitalHemoglobin (Bld) [Mass/Vol]13 g/dL11.8 - 15.4 g/dL [facility] HospitalInterpretation and review of laboratory resultsAbnormalSac-Osage HospitalLymphocytes (Bld) [#/Vol]3.2 10*3/uL1.00 - 4.8 10*3/uLNOMS Healthcare Lymphocytes/100 WBC Manual cnt (Syn fld)28.8 %.[facility] (RBC) [Entitic mass]28.4 pg24.7 - 34.3 pgCarondelet HealthHC (RBC) [Mass/Vol]32 g/dL32.0 - 35.0 g/dLCarondelet HealthV (RBC) [Entitic vol]88.9 fL80 - 100 fLUINTA[facility] Healthcare Monocytes (Bld) [#/Vol]0.7 10*3/uL0.0 - 0.8 10*3/uLNOMS Healthcare Monocytes+Macrophages/100 WBC Manual cnt (Syn fld)6.4 %.[facility] Neutrophils (Bld) [#/Vol]6.8 10*3/uL1.8 - 7.7 10*3/uLNOMS Healthcare Neutrophils/100 WBC Manual cnt (Syn fld)60.4 %.NOMS HealthcareNRBC0.1 /100{WBC}0 - 0.5 /100{WBC}NOMS HealthcarePlatelet mean volume (Bld) [Entitic vol]6.9 fL6.3 - 10.7 fLNOMS HealthcarePlatelets (Bld) [#/Vol]227 10*3/uL150 - 450 10*3/uLNOMS HealthcareRBC LM.HPF (Urine sed) [#/Area]4.56 10*6/uL3.60 - 5.00 10*6/uLNOMS HealthcareWBC (Bld) [#/Vol]11.3 10*3/uL3.8 - 11.6 10*3/uLNOMS HealthcareWBC LM.HPF (Urine sed) [#/Area]11.3 10*3/uL3.8 - 11.6 10*3/uLNOMS HealthcareSTAT FOR BXLancaster Municipal HospitalCOAGULATION PROFILEon 08-19-8816cYVR Coag (Bld) [Time]29.9 s25.1 - 36.5 [facility] HealthcareComment on above:A hematocrit value greater than 55% may lead to inaccurate results in coagulation testing. Patients having hematocrit values >55% require a special collection tube for coagulation studies. Please contact the laboratory at [phone] for redraw instructions. INR Coag (PPP) [Relative time]1 {INR}[facility] HealthcareComment on above:INR Therapeutic Range A) Pre- [...] PT Coag (PPP) [Time]11.8 s9.0 - 12.9 [facility] HealthcareComment on above:A hematocrit value greater than 55% may lead to inaccurate results in coagulation testing. Patients having hematocrit values >55% require a special collection tube for coagulation studies. Please contact the laboratory at [phone] for redraw instructions. STAT FOR BXLancaster Municipal HospitalCT guided bone marrow bx/aspiron 86-94-3146PG guided bone marrow bx/aspirNoBlowing Rock Hospital Physician GroupCoagulation Profileon 90-38-9468lLMB Coag (Bld) [Time]29.9 wPimirc67.1-36.5The [facility] Physician [facility] CenterComment on above:Order Comment: STAT FOR BXResult Comment: A hematocrit value greater than 55% may lead to inaccurate results in coagulation testing. Patients having hematocrit values >55% require a special collection tube for coagulation studies. Please contact the laboratory at [phone] for redraw instructions.PERFORMED BY:[address] [place], [place] [phone] MEDICAL DIRECTORELAINE CHAUDHARY M.D.Performed By: #### PP, CBC ####[address] [address] USAComplete Blood Count Auto Diffon 22-31-3179Bude Corpuscular HGB Conc32.0 g/fYMmdzni94.0-35.0The [facility] Physician [facility] CenterComment on above:Order Comment: STAT FOR BXPerformed By: #### PP, CBC ####[address] [address] USANRBC%0.1 /100{WBC} Normal0-0.5The [facility] Physician [facility] CenterComment on above:Order Comment: STAT FOR BXPerformed By: #### PP, CBC ####[address] [address] USAComprehensive Metabolic Panelon 03-98-0736Lkbovdv [Mass/Vol]3.7 g/dLNormal3.5-5.7The [facility] Physician [facility] CenterComment on above: Performed By: #### CMP, URIC ####[address] [address] USAAlbumin/Globulin [Mass ratio]0.9 {ratio}NormalThe [facility] Physician [facility] CenterComment on above:Performed By: #### CMP, URIC ####[address] [address] USAALP [Catalytic activity/Vol]147 U/MBbva67-081Lts [facility] Physician GroupComment on above:Performed By: #### CMP, URIC ####[address] [place] [address] USAALT [Catalytic activity/Vol]34 U/LNormal7-52The [facility] Physician GroupComment on above:Performed By: #### CMP, URIC ####[address] [address] USAAnion gap [Moles/Vol]12.2 mmol/LNormal6.0-15.0The [facility] Physician GroupComment on above:Performed By: #### CMP, URIC ####[address] [address] USAAST [Catalytic activity/Vol]27 U/FWzqamr71-52Pqe [facility] Physician GroupComment on above:Performed By: #### CMP, URIC ####[address] [address] [place] Bilirubin [Mass/Vol]0.3 mg/dLNormal0.3-1.0The [facility] Physician GroupComment on above:Performed By: #### CMP, URIC ####[address] [address] USACalcium [Mass/Vol]9.2 mg/dLNormal8.6-10.3The [facility] Physician GroupComment on above:Performed By: #### CMP, URIC ####[address] [address] [place] Chloride [Moles/Vol]98 mmol/ZFikqwf65-388Vdx [facility] Physician GroupComment on above:Performed By: #### CMP, URIC ####[address] [address] USACO2 [Moles/Vol]34.2 mmol/LHigh21.0-31.0The [facility] Physician GroupComment on above:Performed By: #### CMP, URIC ####[address] [address] [place] Creatinine [Mass/Vol]1.36 mg/dLHigh0.60-1.20The [facility] Physician GroupComment on above:Performed By: #### CMP, URIC ####[address] [place] [address] USACreatinine Clr Calc Nqoevafv83.49NoBlowing Rock Hospital Physician GroupComment on above:Performed By: #### CMP, URIC ####[id number] [place] Estimated GFR43.228 mL/MinNoBlowing Rock Hospital Physician GroupComment on above: Performed By: #### CMP, URIC ####[address] USAGlobulin (S) [Mass/Vol]3.9 g/dLAdventHealth Heart of Florida Physician GroupComment on above:Performed By: #### CMP, URIC ####[place] [address] USAGlucose [Mass/Vol]252 mg/cADxao32-129Kkh [facility] Physician GroupComment on above:Result Comment: Random Glucose Reference Range is dependent on time and content of last meal. Glucose of more than 200 mg/dL in a nonstressed, ambulatory subject supports the diagnosis of Diabetes Mellitus. ADA recommended reference rangePerformed By: #### CMP, URIC ####[place] [address] USAPotassium [Moles/Vol]4.4 mmol/LNormal3.5-5.1The [facility] Physician GroupComment on above:Performed By: #### CMP, URIC ####[address] USAProtein [Mass/Vol]7.6 g/dL Normal6.4-8.9The [facility] Physician GroupComment on above:Performed By: #### CMP, URIC ####[address] USASodium [Moles/Vol]140 mmol/AAcvqid798-096Qbd [facility] Physician GroupComment on above:Performed By: #### CMP, URIC ####[address] USAUrea nitrogen [Mass/Vol]21 mg/dLNormal7-25The [facility] Physician GroupComment on above:Performed By: #### CMP, URIC ####[facility] [id number] [facility] Comprehensive metabolic panelon 29-33-2950Ujmocjs [Mass/Vol]3.7 g/dL3.5 - 5.7 g/dLNOMS HealthcareAlbumin/Globulin [Mass [...] mg/dLHigh0.60 - 1.20 mg/dLNOMS HealthcareCREATININE CLR CALC GOZQAKAL25.49NOMS HealthcareGFR/1.73 sq M.predicted MDRD (S/P/Bld) [Vol rate/Area]43.228 mL/min/{1.73_m2}mL/MinNOMS HealthcareGlobulin (S) [Mass/Vol]3.9 g/dLNOMS HealthcareGlucose [Mass/Vol]252 mg/tYAsqc47 - 100 mg/dLNOWI HealthcareComment on above:Random Glucose Reference Range is dependent on time and content of last meal. Glucose of more than 200 mg/dL in a nonstressed, ambulatory subject supports the diagnosis of Diabetes Mellitus. ADA recommended reference range Interpretation and review of laboratory resultsAbnormalNOMS HealthcarePotassium [Moles/Vol]4.4 mmol/L3.5 - 5.1 mmol/LNOMS HealthcareProtein [Mass/Vol]7.6 g/dL 6.4 - 8.9 g/dLNOMS HealthcareSodium [Moles/Vol]140 mmol/L136 - 145 mmol/LNOMS HealthcareUrea nitrogen [Mass/Vol]21 mg/dL7 - 25 mg/dLNOMS HealthcareEosinophils [#/volume] in Blood by Automated countOrdered By: Roxane Bills on 09-19-2024 Eosinophils (Bld) [#/Vol]0.4 10*3/uLNormal0.0-0.45K[facility]tering HealthComment on above:Order Comment: STAT FOR BXPerformed By: #### PP, CBC ####[address] Eosinophils/100 leukocytes in Blood by Automated countOrdered By: Roxane Bills on 21-81-2089Pjcnzynvrsd/100 WBC (Bld)3.8 %Normal.[facility] Comment on above:Order Comment: STAT FOR BXPerformed By: #### PP, CBC ####[address] Erythrocyte distribution width [Ratio] by Automated countOrdered By: Roxane Bills on 77-45-5573Errnzfkzrlo distribution width (RBC) [Ratio]15.5 %High11.9-15.3 [facility] HealthComment on above:Order Comment: STAT FOR BX Performed By: #### PP, CBC ####[id number] USAErythrocytes [#/volume] in Blood by Automated count Ordered By: Roxane Bills on 68-91-2612BKR (Bld) [#/Vol]4.56 10*6/uLNormal3.60-5.00 [facility] HealthComment on above:Order Comment: STAT FOR BX Performed By: #### PP, CBC ####[address] USAHematocrit [Volume Fraction] of Blood by Automated countOrdered By: Roxane Bills on 88-46-2401Whikargzpl (Bld) [Volume fraction]40.6 % Jvgqox17.0-46.4FAshtabula General HospitalComment on above:Order Comment: STAT FOR BXPerformed By: #### PP, CBC ####[address] [address] USAHemoglobin [Mass/volume] in BloodOrdered By: Roxane Bills on 46-83-0730Npkthmamvp (Bld) [Mass/Vol]13.0 g/fFAgzhha72.8-15.4 [facility] HealthComment on above:Order Comment: STAT FOR BX Performed By: #### PP, CBC ####[address] [address] USAINR in Platelet poor plasma by Coagulation assay Ordered By: Roxane Bills on 38-74-2365CGU Coag (PPP) [Relative time]1.0 {INR}Normal [facility] HealthComment on above:INR Therapeutic Range A) Pre- [...] 3 - 4.5Performed By: #### PP, CBC ####[address] [address] USALeukocytes [#/volume] corrected for nucleated erythrocytes in Blood by Automated counOrdered By: Roxane Bills on 92-72-1489ZJN corrected for nucl RBC Auto (Bld) [#/Vol]11.3 10*3/uL3.8-11.6FAshtabula General HospitalLeukocytes [#/volume] in Blood by Automated countOrdered By: Roxane Bills on 33-63-4198SKL (Bld) [#/Vol]11.3 10*3/uLNormal3.8-11.6FAshtabula General HospitalComment on above:Order Comment: STAT FOR BXPerformed By: #### PP, CBC ####[address] [facility] Lymphocytes [#/volume] in Blood by Automated countOrdered By: Roxane Bills on 35-05-7856Veprezqbsyl (Bld) [#/Vol]3.2 10*3/uLNormal1.00-4.8K[facility] HealthComment on above:Order Comment: STAT FOR BXPerformed By: #### PP, CBC ####[address] [facility] Lymphocytes/100 leukocytes in Blood by Automated countOrdered By: Roxane Bills on 10-86-8397Veycyrxstjo/100 WBC (Bld)28.8 %Normal.[facility] HealthComment on above:Order Comment: STAT FOR BXPerformed By: #### PP, CBC ####[address] [address] [facility] [Entitic mass] by Automated countOrdered By: Roxane Bills on 42-44-2763YPG (RBC) [Entitic mass]28.4 cpDnysoo27.7-34.3FAshtabula General HospitalComment on above:Order Comment: STAT FOR BXPerformed By: #### PP, CBC ####[address] [address] [facility] Auto (RBC) [Mass/Vol]Ordered By: Roxane Bills on 41-91-1272TTCL (RBC) [Mass/Vol]32.0 g/dL 32.0-35.0[facility] HospitalV [Entitic volume] by Automated countOrdered By: Roxane Bills on 52-82-8319GFD (RBC) [Entitic vol]88.9 fLNormal 80-100K[facility] HealthComment on above:Order Comment: STAT FOR BXPerformed By: #### PP, CBC ####[address] [address] USAMonocytes [#/volume] in Blood by Automated count Ordered By: Roxane Bills on 44-41-6602Indwgddcx (Bld) [#/Vol]0.7 10*3/uLNormal 0.0-0.8K[facility]tering HealthComment on above:Order Comment: STAT FOR BXPerformed By: #### PP, CBC ####[address] USAMonocytes/100 leukocytes in Blood by Automated count Ordered By: Roxane Bills on 09-78-1893Luskpchap/100 WBC (Bld)6.4 %Normal.[facility]tering HealthComment on above:Order Comment: STAT FOR BXPerformed By: #### PP, CBC ####[place] [address] USANeutrophils [#/volume] in Blood by Automated countOrdered By: Roxane Bills on 79-76-9720Yxeykmukkmc (Bld) [#/Vol]6.8 10*3/uLNormal1.8-7.7FAshtabula General HospitalComment on above:Order Comment: STAT FOR BXPerformed By: #### PP, CBC ####[address] USANeutrophils/100 leukocytes in Blood by Automated countOrdered By: Roxane Bills on 62-94-4507Ehluedchzgx/100 WBC (Bld)60.4 %Normal.[facility]tering HealthComment on above:Order Comment: STAT FOR BXPerformed By: #### PP, CBC ####[address] USANo Panel InformationOrdered By: Roxane Bills on 24-69-1728Ycdhqcylwvasp Pathology Test See commentKettering HealthComment on above:See report. Scanned copy available in EMR.See commentKettering HealthNo Panel Informationon 75-77-7167VGER HealthcareNucleated erythrocytes [Presence] in Blood by Automated countOrdered By: Roxane Bills on 70-10-8744Enjmnbqst RBC Auto Ql (Bld)0.1 /100{WBC}0-0.5FAshtabula General HospitalPathology Request for Lab Corpon 19-39-8925Ebyroyodl Request for Lab CorpNormHCA Florida [facility] Hospital Physician GroupComment on above:Result Comment: See report. Scanned copy available in EMR.PERFORMED BY:[address] [place], [place] [phone] MEDICAL DIRECTORELAINE CHAUDHARY M.D.Performed By: #### PATH TO [facility] ####[address] [address] USAPlatelet mean volume [Entitic volume] in Blood by Automated countOrdered By: Roxane Bills on 72-40-7093Hqipcgfr mean volume (Bld) [Entitic vol]6.9 fLNormal6.3-10.7FAshtabula General HospitalComment on above:Order Comment: STAT FOR BXPerformed By: #### PP, CBC ####[address] [address] USAPlatelets [#/volume] in Blood by Automated countOrdered By: Roxane Bills on 04-11-3648Krwxwzjha (Bld) [#/Vol]227 10*3/kLGajxxn893-255LixaiqdkvKettering HealthComment on above:Order Comment: STAT FOR BXPerformed By: #### PP, CBC ####[address] [address] USAProthrombin time (PT) Ordered By: Roxane Bills on 51-91-1348VC Coag (PPP) [Time]11.8 sNormal9.0-12.9 [facility] HealthComment on above:A hematocrit value greater than 55% may lead to inaccurate results in coagulation testing. Patientshaving hematocrit values >55% require a special collection tube for coagulation studies. Please contact the laboratory at [phone] for redraw instructions. Order Comment: STAT FOR BXResult Comment: A hematocrit value greater than 55% may lead to inaccurate results in coagulation testing. Patients having hematocrit values >55% require a special collection tube for coagulation s tudies. Please contact the laboratory at [phone] for redraw instructions. Performed By: #### PP, CBC ####[facility] [address] [place] [address] USAUric Acidon 32-82-3994Ebwux [Mass/Vol]6.5 mg/dL Normal2.3-6.6The [facility] Physician GroupComment on above:Result Comment: PERFORMED BY:[facility] [place]Jose[place], [place] [phone] MEDICAL DIRECTORELAINE CHAUDHARY M.D.Performed By: #### CMP, URIC ####[facility] [address] [place] [address] USAUric acidon 97-61-8707Schta [Mass/Vol]6.5 mg/dL2.3 - 6.6 mg/dLNOMS HealthcareaPTT in Platelet poor plasma by Coagulation assayOrdered By: Roxane Bills on 47-99-2825yQJG Coag (PPP) [Time]29.9 s25.1-36.5FAshtabula General HospitalComment on above:A hematocrit value greater than 55% may lead to inaccurate results in coagulation testing. Patientshaving hematocrit values >55% require a special collection tube for coagulation studies. Please contact the laboratory at [phone] for redraw instructions.CBC W Auto Differential panel (Bld)on 32-52-5067Bkqrldkrc (Bld) [#/Vol]0.2 10*3/uL0.0 - 0.2 10*3/uLNOMS HealthcareBasophils/100 WBC Manual cnt (Syn fld)1.5 %.NOMS HealthcareEosinophils (Bld) [#/Vol]0.6 10*3/uLHigh0.0 - 0.45 10*3/uLNOMS HealthcareEosinophils/100 WBC Manual cnt (Syn fld)4.5 %.NOMS HealthcareErythrocyte distribution width (RBC) [Ratio]15.3 %11.9 - 15.3 %NOMS HealthcareHematocrit (Bld) [Volume fraction]41.6 %34.0 - 46.4 %NOMS HealthcareHemoglobin (Bld) [Mass/Vol]13.1 g/dL 11.8 - 15.4 g/dLNOMS HealthcareInterpretation and review of laboratory results AbnormalUINTAH BASIN MEDICAL CENTER HealthcareLymphocytes (Bld) [#/Vol]3.8 10*3/uL1.00 - 4.8 10*3/uL [facility] HospitalLymphocytes/100 WBC Manual cnt (Syn fld)28.7 %.[facility] HealthH (RBC) [Entitic mass]27.8 pg24.7 - 34.3 pgCarondelet HealthHC (RBC) [Mass/Vol] 31.5 g/dLLow32.0 - 35.0 g/dLCarondelet HealthV (RBC) [Entitic vol]88.3 fL80 - 100 fLUINTAH BASIN MEDICAL CENTER HealthcareMonocytes (Bld) [#/Vol]1.1 10*3/uLHigh0.0 - 0.8 10*3/uLSac-Osage HospitalMonocytes+Macrophages/100 WBC Manual cnt (Syn fld)8 %.[facility] Neutrophils (Bld) [#/Vol]7.7 10*3/uL1.8 - 7.7 10*3/uLUINTAH BASIN MEDICAL [facility]ENTER Healthcare Neutrophils/100 WBC Manual cnt (Syn fld)57.3 %.[facility] HospitalNRBC0 /100{WBC}0 - 0.5 /100{WBC}[facility] HospitalPlatelet mean volume (Bld) [Entitic vol]7.4 fL6.3 - 10.7 fLUINTAH BASIN MEDICAL CENTER HealthcarePlatelets (Bld) [#/Vol]252 10*3/uL150 - 450 10*3/uLSac-Osage HospitalRBC LM.HPF (Urine sed) [#/Area]4.72 10*6/uL3.60 - 5.00 10*6/uLNOJohn J. Pershing VA Medical CenterWBC (Bld) [#/Vol]13.4 10*3/uLHigh3.8 - 11.6 10*3/uLNOJohn J. Pershing VA Medical CenterWBC LM.HPF (Urine sed) [#/Area]13.4 10*3/uLHigh3.8 - 11.6 10*3/uLSouthPointe Hospital HealthcareComplete Blood Count Auto Diffon 35-46-0301Wvdbuxmdz (Bld) [#/Vol]0.2 10*3/uLNormal0.0-0.2[facility] Physician GroupComment on above:Result Comment: PERFORMED BY:[address] [place], [place] [phone] MEDICAL DIRECTORRONI BERRY M.D. Performed By: #### FE and TIBC, CLEOPATRA, CBC, LDH, CMP ####[address]#### KAPPA, MITCH SERUM, SPE ####[facility] ,Basophils/100 WBC (Bld)1.5 %Normal.The [facility] Physician GroupComment on above:Performed By: #### FE and TIBC, CLEOPATRA, CBC, LDH, CMP ####[address]#### KAPPA, MITCH SERUM, SPE ####[facility] ,Eosinophils (Bld) [#/Vol]0.6 10*3/uLHigh0.0-0.45The [facility] Physician GroupComment on above: Performed By: #### FE and TIBC, CLEOPATRA, CBC, LDH, CMP ####[address]#### KAPPA, MITCH SERUM, SPE ####[facility] ,Eosinophils/100 WBC (Bld)4.5 %Normal.The [facility] Physician GroupComment on above:Performed By: #### FE and TIBC, CLEOPATRA, CBC, LDH, CMP ####[address]#### KAPPA, MITCH SERUM, SPE ####[facility] ,Erythrocyte distribution width (RBC) [Ratio]15.3 %Infery73.9-15.3The [facility] Physician GroupComment on above:Performed By: #### FE and TIBC, CLEOPARTA, CBC, LDH, CMP ####[address]#### KAPPA, MITCH SERUM, SPE ####[facility] ,Hematocrit (Bld) [Volume fraction]41.6 %Normal 34.0-46.4The [facility] Physician GroupComment on above:Performed By: #### FE and TIBC, CLEOPATRA, CBC, LDH, CMP ####[address]#### KAPPA, MITCH SERUM, SPE ####[facility] , Hemoglobin (Bld) [Mass/Vol]13.1 g/bKMxqose81.8-15.4The [facility]ician Group Comment on above:Performed By: #### FE and TIBC, CLEOPATRA, CBC, LDH, CMP ####[address]#### KAPPA, MITCH SERUM, SPE ####[facility] ,Lymphocytes (Bld) [#/Vol]3.8 10*3/uLNormal1.00-4.8The [facility] Physician GroupComment on above:Performed By: #### FE and TIBC, CLEOPATRA, CBC, LDH, CMP ####[address]#### KAPPA, MITCH SERUM, SPE ####[facility] ,Lymphocytes/100 WBC (Bld)28.7 %Normal.The [facility] Physician GroupComment on above:Performed By: #### FE and TIBC, CLEOPATRA, CBC, LDH, CMP ####[address]#### KAPPA, MITCH SERUM, SPE ####[facility] ,MCH (RBC) [Entitic mass]27.8 pg Fmaaxu55.7-34.3The [facility] Physician GroupComment on above:Performed By: #### FE and TIBC, CLEOPATRA, CBC, LDH, CMP ####[address]#### KAPPA, MITCH SERUM, SPE ####[facility] ,MCV (RBC) [Entitic vol]88.3 pZFncdtt30-374Klg [facility] Physician GroupComment on above:Performed By: #### FE and TIBC, CLEOPATRA, CBC, LDH, CMP ####[address]#### KAPPA, MITCH SERUM, SPE ####[facility] ,Mean Corpuscular HGB Conc31.5 g/dLLow32.0-35.0The [facility] Physician GroupComment on above:Performed By: #### FE and TIBC, CLEOPATRA, CBC, LDH, CMP ####[address]#### KAPPA, MITCH SERUM, SPE ####[facility] ,Monocytes (Bld) [#/Vol]1.1 10*3/uLHigh0.0-0.8The [facility] Physician GroupComment on above:Performed By: #### FE and TIBC, CLEOPATRA, CBC, LDH, CMP ####[address]#### KAPPA, MITCH SERUM, SPE ####[facility] ,Monocytes/100 WBC (Bld) 8.0 %Normal.The [facility] Physician GroupComment on above:Performed By: #### FE and TIBC, CLEOPATRA, CBC, LDH, CMP ####[address]#### KAPPA, MITCH SERUM, SPE ####[facility] , Neutrophils (Bld) [#/Vol]7.7 10*3/uLNormal1.8-7.7The [facility] Comment on above:Performed By: #### FE and TIBC, CLEOPATRA, CBC, LDH, CMP ####[address]#### KAPPA, MITCH SERUM, SPE ####[facility] ,Neutrophils/100 WBC (Bld)57.3 % Normal.The [facility] Physician GroupComment on above:Performed By: #### FE and TIBC, CLEOPATRA, CBC, LDH, CMP ####[address]#### KAPPA, MITCH SERUM, SPE ####[facility] , NRBC%0.0 /100{WBC}Normal0-0.5The [facility] Physician GroupComment on above: Performed By: #### FE and TIBC, CLEOPATRA, CBC, LDH, CMP ####[address]#### KAPPA, MITCH SERUM, SPE ####[facility] ,Platelet mean volume (Bld) [Entitic vol]7.4 fLNormal 6.3-10.7The [facility] Physician GroupComment on above:Performed By: #### FE and TIBC, CLEOPATRA, CBC, LDH, CMP ####[address]#### KAPPA, MITCH SERUM, SPE ####[facility] , Platelets (Bld) [#/Vol]252 10*3/aVHlhqtc049-527Fkw [facility] Comment on above:Performed By: #### FE and TIBC, CLEOPATRA, CBC, LDH, CMP ####[address]#### KAPPA, MITCH SERUM, SPE ####[facility] ,RBC (Bld) [#/Vol]4.72 10*6/uL Normal3.60-5.00The [facility] Physician GroupComment on above:Performed By: #### FE and TIBC, CLEOPATRA, CBC, LDH, CMP ####[place] [address] [place]#### KAPPA, MITCH SERUM, SPE ####[facility] ,WBC (Bld) [#/Vol]13.4 10*3/uLHigh3.8-11.6The [facility] Physician GroupComment on above:Performed By: #### FE and TIBC, CLEOPATRA, CBC, LDH, CMP ####[address]#### KAPPA, MITCH SERUM, SPE ####[facility] ,Comprehensive Metabolic Panelon 77-70-6342Satadwr [Mass/Vol]4.0 g/dLNormal3.5-5.7The [facility] Comment on above:Performed By: #### FE and TIBC, CLEOPATRA, CBC, LDH, CMP ####[address]#### KAPPA, MITCH SERUM, SPE ####[facility] ,Albumin/Globulin [Mass ratio]1.1 {ratio}NormalThe [facility] Physician GroupComment on above:Performed By: #### FE and TIBC, CLEOPATRA, CBC, LDH, CMP ####[address]#### KAPPA, MITCH SERUM, SPE ####[facility] ,ALP [Catalytic activity/Vol]140 U/IQazx09-403Tld [facility] Physician GroupComment on above:Performed By: #### FE and TIBC, CLEOPATRA, CBC, LDH, CMP ####[address]#### KAPPA, MITCH SERUM, SPE ####[facility] ,ALT [Catalytic activity/Vol]37 U/LNormal7-52The [facility] Physician GroupComment on above:Performed By: #### FE and TIBC, CLEOPATRA, CBC, LDH, CMP ####[place] [address] [place]#### KAPPA, MITCH SERUM, SPE ####[facility] ,Anion gap [Moles/Vol]12.1 mmol/LNormal6.0-15.0The [facility] Physician GroupComment on above:Performed By: #### FE and TIBC, CLEOPATRA, CBC, LDH, CMP ####[address]#### KAPPA, MITCH SERUM, SPE ####[facility] ,AST [Catalytic activity/Vol]30 U/DNttkfn52-07Iqi [facility] Physician GroupComment on above:Performed By: #### FE and TIBC, CLEOPATRA, CBC, LDH, CMP ####[place] [address] [place]#### KAPPA, MITCH SERUM, SPE ####[facility] ,Bilirubin [Mass/Vol]0.3 mg/dLNormal0.3-1.0The [facility] Physician GroupComment on above: Performed By: #### FE and TIBC, CLEOPATRA, CBC, LDH, CMP ####[address]#### KAPPA, MITCH SERUM, SPE ####[facility] ,Calcium [Mass/Vol]9.5 mg/dLNormal8.6-10.3The [facility] Physician GroupComment on above:Performed By: #### FE and TIBC, CLEOPATRA, CBC, LDH, CMP ####[place] [address] [place]#### KAPPA, MITCH SERUM, SPE ####[facility] ,Chloride [Moles/Vol]99 mmol/HNtbhng69-976Hww [facility] Physician GroupComment on above:Performed By: #### FE and TIBC, CLEOPATRA, CBC, LDH, CMP ####[place] [address] [place]#### KAPPA, MITCH SERUM, SPE ####[facility] ,CO2 [Moles/Vol]34.8 mmol/LHigh21.0-31.0The [facility] Physician GroupComment on above:Performed By: #### FE and TIBC, CLEOPATRA, CBC, LDH, CMP ####[place] [address] [place]#### KAPPA, MITCH SERUM, SPE ####[facility] ,Creatinine [Mass/Vol]1.43 mg/dL High0.60-1.20The [facility] Physician GroupComment on above:Performed By: #### FE and TIBC, CLEOPATRA, CBC, LDH, CMP ####[place] [address] [place]#### KAPPA, MITCH SERUM, SPE ####[facility] , Creatinine Clr Calc Gugeixwj27.28NoBlowing Rock Hospital Physician GroupComment on above:Performed By: #### FE and TIBC, CLEOPATRA, CBC, LDH, CMP ####[address]#### KAPPA, MITCH SERUM, SPE ####[facility] ,Estimated GFR40.702 mL/MinNoBlowing Rock Hospital Physician [facility] CenterComment on above:Performed By: #### FE and TIBC, CLEOPATRA, CBC, LDH, CMP ####[address]#### KAPPA, MITCH SERUM, SPE ####[facility] ,Globulin (S) [Mass/Vol] 3.6 g/dLAdventHealth Heart of Florida Physician Panola Medical CenterComment on above:Performed By: #### FE and TIBC, CLEOPATRA, CBC, LDH, CMP ####[place] [address] [place]#### KAPPA, MITCH SERUM, SPE ####[facility] ,Glucose [Mass/Vol]61 mg/kKJuy52-398Bnk [facility] Comment on above:Result Comment: Random Glucose Reference Range is dependent on time and content of last meal. Glucose of more than 200 mg/dL in a nonstressed, ambulatory subject supports the diagnosis of Diabetes Mellitus. ADA recommended reference rangePerformed By: #### FE and TIBC, CLEOPATRA, CBC, LDH, CMP ####[place] [address] [place]#### KAPPA, MITCH SERUM, SPE ####[facility] ,Potassium [Moles/Vol]3.9 mmol/LNormal 3.5-5.1The [facility] Physician GroupComment on above:Performed By: #### FE and TIBC, CLEOPATRA, CBC, LDH, CMP ####[address]#### KAPPA, MITCH SERUM, SPE ####[facility] , Protein [Mass/Vol]7.6 g/dLNormal6.4-8.9The [facility] Physician GroupComment on above:Performed By: #### FE and TIBC, CLEOPATRA, CBC, LDH, CMP ####[address]#### KAPPA, MITCH SERUM, SPE ####[facility] ,Sodium [Moles/Vol]142 mmol/JCfpoqo663-599Jiz [facility] Physician GroupComment on above:Performed By: #### FE and TIBC, CLEOPATRA, CBC, LDH, CMP ####[address]#### KAPPA, MITCH SERUM, SPE ####[facility] ,Urea nitrogen [Mass/Vol] 33 mg/dLHigh7-25The [facility] Phys[facility] GroupComment on above:Performed By: #### FE and TIBC, CLEOPATRA, CBC, LDH, CMP ####[address]#### KAPPA, MITCH SERUM, SPE ####[facility] ,Ferritin [Mass/volume] in Serum or PlasmaOrdered By: Roxane Bills on 47-86-7725Zpdqrbrl [Mass/Vol]101.2 ng/xTCjfzjo06.0-306.8Kettering HealthComment on above:Result Comment: PERFORMED BY:[address] [place], [place] [phone] MEDICAL DIRECTORRONI BERRY M.D.Performed By: #### FE and TIBC, CLEOPATRA, CBC, LDH, CMP ####[address]#### KAPPA, MITCH SERUM, SPE ####[facility] ,Free K+L LT Chains, Qn, Son 84-16-3498Dzgi Cool[place] Light Chains, S281.2 mg/LHigh3.3-19.4The [facility] Physician GroupComment on above:Performed By: #### FE and TIBC, CLEOPATRA, CBC, LDH, CMP ####[address]#### KAPPA, MITCH SERUM, SPE ####[facility] ,Free Lambda Light Chains, S33.7 mg/LHigh5.7-26.3The [facility] Physician GroupComment on above: Performed By: #### FE and TIBC, CLEOPATRA, CBC, LDH, CMP ####[address]#### KAPPA, MITCH SERUM, SPE ####[facility] ,Coolidge/Lambda Ratio, S8.91Lfko1.26-1.65The [facility] Physician GroupComment on above:Result Comment: Performed at: [facility] [id number] L[place] Doffer: Jhoan Rich PhD, Phone: [phone] BY:[address] [place], [place] [phone] MEDICAL DIRECTORRONI MONTES M.D.Performed By: #### FE and TIBC, CLEOPATRA, CBC, LDH, CMP ####[address]#### KAPPA, MITCH SERUM, SPE ####[facility] ,Immunofixation,Serumon 08-23-2024 Immunofixation, SerumCommentCritically abnormal.The [facility] Comment on above:Result Comment: 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 PLEASE NOTE: Samples from patients receiving DARZALEX(R) (daratumumab) or SARCLISA(R)(isatuximab-irfc) treatment can appear as an IgG kappa and mask a complete response (CR). If this patient is receivin g these therapies, this MITCH assay interference can be removed by ordering test number 150235- Immunofixation, Daratumumab-Specific, Serum or 824904- Immunofixation, Isatuximab-Specific, Serum and submitting a new sample for testing or by calling the lab to add this test to the current sample.Performed By: #### FE and TIBC, CLEOPATRA, CBC, LDH, CMP ####[address]#### KAPPA, MITCH SERUM, SPE ####[facility] ,Immunoglobulin A, Sjzor665 mg/hLTlru44-490Upj [facility] Physician GroupComment on above:Performed By: #### FE and TIBC, CLEOPATRA, CBC, LDH, CMP ####[place] [address] [place]#### KAPPA, MITCH SERUM, SPE ####[facility] ,Immunoglobulin G1832 mg/dLHigh 586-1602The [facility] Physician GroupComment on above:Performed By: #### FE and TIBC, CLEOPATRA, CBC, LDH, CMP ####[place] [address] [place]#### KAPPA, MITCH SERUM, SPE ####[facility] , Immunoglobulin M, Serum97 mg/gFGoyryd46-481Fnf [facility] Physician GroupComment on above:Result Comment: Performed at: [address] [id number] [place] Doffer: Jhoan Rich PhD, Phone: [phone] Performed By: #### FE and TIBC, CLEOPATRA, CBC, LDH, CMP ####[place] [address] [place]#### KAPPA, MITCH SERUM, SPE ####[facility] ,Iron [Mass/volume] in Serum or PlasmaOrdered By: Roxane Bills on 84-14-5227Acpv [Mass/Vol]57 ug/hQAwgets24-510IwlutiafwKettering HealthComment on above:Performed By: #### FE and TIBC, CLEOPATRA, CBC, LDH, CMP ####[place] [address] [place]#### KAPPA, MITCH SERUM, SPE ####[facility] ,Iron and TIBC Profileon 08-23-2024% Iron Acbhtqeavl81.7 %Qwd79-45Nmd [facility] Physician GroupComment on above:Performed By: #### FE and TIBC, CLEOPATRA, CBC, LDH, CMP ####[address]#### KAPPA, MITCH SERUM, SPE ####[facility] ,Total Iron Binding Iddpiupe755 ug/bQCxzekq201-918Xbh [facility] State HospitalComment on above:Performed By: #### FE and TIBC, CLEOPATRA, CBC, LDH, CMP ####[place] [address] [place]#### KAPPA, MITCH SERUM, SPE ####[facility] ,LDH Lactate Dehydrogenaseon 91-51-7892CIB Lactate Touyvpsgkfper868 U/VBmyi407-588Wif [facility]ola Medical CenterComment on above:Performed By: #### FE and TIBC, CLEOPATRA, CBC, LDH, CMP ####[place] [address] [place]#### KAPPA, MITCH SERUM, SPE ####[facility] ,Lactate dehydrogenase [Enzymatic activity/volume] in Serum or Plasma by Lactate to py Ordered By: Roxane Bills on 46-73-0083VNK Lactate to pyruvate reaction [Catalytic activity/Vol]277 U/MXnvx284-538JtbnxewgbKettering HealthNo Panel InformationOrdered By: Roxane Bills on 51.0 g/dLHighNot ObservedKettering HealthComment.Kettering HealthProtein Electrophoresis, Serumon 49-93-4734Qsfya-1-Globulin0.3 g/dLNormal0.0-0.4The [facility] Physician GroupComment on above:Performed By: #### FE and TIBC, CLEOPATRA, CBC, LDH, CMP ####[place] [address] [place]#### KAPPA, MITCH SERUM, SPE ####[facility] ,Qdhem-2-Gfnaaima 1.0 g/dLNormal0.4-1.0The [facility] Physician GroupComment on above:Performed By: #### FE and TIBC, CLEOPATRA, CBC, LDH, CMP ####[address]#### KAPPA, MITCH SERUM, SPE ####[facility] ,Beta Globulin1.3 g/dLNormal0.7-1.3The [facility] Comment on above:Performed By: #### FE and TIBC, CLEOPATRA, CBC, LDH, CMP ####[address]#### KAPPA, MITCH SERUM, SPE ####[facility] ,Gamma Globulin1.7 g/dLNormal 0.4-1.8The [facility] Physician GroupComment on above:Performed By: #### FE and TIBC, CLEOPATRA, CBC, LDH, CMP ####[place] [address] [place]#### KAPPA, MITCH SERUM, SPE ####[facility] , M-Spike1.0 g/dLHighNot ObservedThe [facility] Physician GroupComment on above: Performed By: #### FE and TIBC, CLEOPATRA, CBC, LDH, CMP ####[place] [address] [place]#### KAPPA, MITCH SERUM, SPE ####[facility] ,SPE-NoteCommentNormal.The [facility] Comment on above:Result Comment: Protein electrophoresis scan will follow via computer, mail, or water softener service supervisor delivery. Performed at: [address] [id number] L[place] Doffer: Jhoan Rich PhD, Phone: [phone] By: #### FE and TIBC, CLEOPATRA, CBC, LDH, CMP ####[facility]#### KAPPA, MITCH SERUM, SPE ####[facility] ,Serum free kappa light chain measurement Ordered By: Roxane Bills on 50-05-9367Uajzuibbliukao light chains.kappa.free (S) [Mass/Vol]281.2 mg/LHigh3.3-19.4FPomerene Hospitalerum globulin measurement (mass/volume)Ordered By: Roxane Bills on 54-76-7741Pupersui (S) [Mass/Vol]4.4 g/dLHigh2.2-3.9Kettering HealthComment on above: Performed By: #### FE and TIBC, CLEOPATRA, CBC, LDH, CMP ####[facility]#### KAPPA, MITCH SERUM, SPE ####[facility] ,Serum immunoglobulin free kappa light chains/immunoglobulin free lambda light chainsOrdered By: Roxane Bills on 83-84-7408Ayeezjjxanilzc light chains.kappa.free/Immunoglobulin light chains.lambda.free (S) [Mass ratio]8.53Upkn1.26-1.65[facility] Hospitalerum or plasma IgA measurement (mass/volume)Ordered By: Roxane Bills on 90-48-1139RvE [Mass/Vol]546 mg/xDJvjo69-768RyhgyxuxpKettering Health Serum or plasma IgG measurement (mass/volume)Ordered By: Roxane Bills on 08-23-2024 IgG [Mass/Vol]1832 mg/nHBurx980-3588MoecuvjlkGrant Hospitalerum or plasma IgM measurement (mass/volume)Ordered By: Roxane Bills on 14-67-1194ZzU [Mass/Vol]97 mg/cM57-954FijyyqropGrant Hospitalerum or plasma albumin measurement (mass/volume)Ordered By: Roxane Bills on 67-46-1487Zuzmylm [Mass/Vol] 3.3 g/dLNormal2.9-4.4FAshtabula General HospitalComment on above:Performed By: #### FE and TIBC, CLEOPATRA, CBC, LDH, CMP ####[facility] Pow[address]#### KAPPA, MITCH SERUM, SPE ####[facility] ,Serum or plasma albumin/globulin mass ratioOrdered By: Roxane Bills on 66-30-8951Kfsauqu/Globulin [Mass ratio]0.8 {ratio}Normal0.7-1.7FAshtabula General HospitalComment on above:Performed By: #### FE and TIBC, CLEOPATRA, CBC, LDH, CMP ####[facility] Cra[address]#### KAPPA, MITCH SERUM, SPE ####[facility] ,Serum or plasma alpha 1 globulin measurement by electrophoresis (mass/volume)Ordered By: Roxane Bills on 40-36-6102Rjyur 1 globulin Elph [Mass/Vol]0.3 g/dL0.0-0.4FPomerene Hospitalerum or plasma alpha 2 globulin measurement by electrophoresis (mass/volume)Ordered By: Roxane Bills on 32-41-8503Ojizr 2 globulin Elph [Mass/Vol]1.0 g/dL0.4-1.0Grant Hospitalerum or plasma beta globulin measurement by electrophoresis (mass/volume)Ordered By: Roxane Bills on 67-95-6793Eofp globulin Elph [Mass/Vol]1.3 g/dL0.7-1.3FPomerene Hospitalerum or plasma gamma globulin measurement by electrophoresis (mass/volume)Ordered By: Roxane Bills on 85-28-9753Pupfh globulin Elph [Mass/Vol] 1.7 g/dL0.4-1.8Grant Hospitalerum or plasma immunoglobulin free lambda light chains measurement (mass/volume)Ordered By: Roxane Bills on 81-13-0464Kzahbmdlrjnryh light chains.lambda.free [Mass/Vol]33.7 mg/LHigh 5.7-26.3FPomerene Hospitalerum or plasma iron binding capacity measurement (mass/volume)Ordered By: Roxane Bills on 46-37-6552Gxxu binding capacity [Mass/Vol]364 ug/zF384-580AfxmtgyaqGrant Hospitalerum or plasma iron saturation measurement (mass fraction)Ordered By: Roxane Bills on 61-82-7990Elml saturation [Mass fraction]15.7 %Zpp40-09HqwghvxhuGrant Hospitalerum total protein measurementOrdered By: Roxane Bills on 08-23-2024 Protein [Mass/Vol]7.7 g/dLNormal6.0-8.5FAshtabula General HospitalComment on above:Performed By: #### FE and TIBC, CLEOPATRA, CBC, LDH, CMP ####[facility]#### KAPPA, MITCH SERUM, SPE ####[facility] ,Transferrin [Mass/volume] in Serum or PlasmaOrdered By: Roxane Bills on 82-28-1161Pkmebcjdiir [Mass/Vol]260 mg/dLNormal 203-362Kettering HealthComment on above:Performed By: #### FE and TIBC, CLEOPATRA, CBC, LDH, CMP ####[facility] Pso[address]#### KAPPA, MITCH SERUM, SPE ####[facility] , Glucose (Bld) [Mass/Vol]Ordered By: Rossi Hurt on 32-39-2769Ezpdoru Blood, PRZ744 mg/dLNOWI HealthcareLaboratory - Hematology and Cell countson 08-22-2024 HbA1c (Bld) [Mass fraction]10.9 %[facility] HospitalNo Panel InformationOrdered By: Rossi Hurt on 41-86-3932VVVQ HealthcareCholesterol [Mass/volume] in Serum or PlasmaOrdered By: Peri Tyson on 84-83-9969Xfqhhjbiwjx [Mass/Vol]Cholesterol [Mass/volume] in Serum or Ffxguf640-804NbblglefsKettering HealthComment on above:Chol less than 200 mg/dl low riskChol 201-239 mg/dl borderline riskChol 240 mg/dl and greater high riskCholesterol [Mass/Vol]159 mg/kPUnnaza363-228 Kettering HealthComment on above:Chol less than 200 mg/dl low riskChol 201-239 mg/dl borderline riskChol 240 mg/dl and greater high riskResult Comment: Chol less than 200 mg/dl low risk Chol 201-239 mg/dl borderline risk Chol 240 mg/dland greater high riskPerformed By: #### CCP, RA ####[facility] ,#### URMACRERAT, LIPID, ESR ####[facility] [address] [place] [address] USACholesterol in HDL [Mass/volume] in Serum or PlasmaOrdered By: Peri Tyson on 47-08-7794Vfwflgpebop in HDL [Mass/Vol]Serum or plasma high density lipoprotein (HDL) cholesterol ouwgyoknyvh31-47HcqmbmmlbKettering HealthComment on above:HDL CHOL ATP-III CLASSIFICATION Cardiovascular RiskHDL > or equal to 60 mg/dL LOWHDL < 40 mg/dL HIGHCholesterol in HDL [Mass/Vol]52 mg/xTXrbkbv10-36GqmfyhoepKettering HealthComment on above:HDL CHOL ATP-III CLASSIFICATION Cardiovascular RiskHDL > or equal to 60 mg/dL LOWHDL < 40 mg/dL HIGHResult Comment: HDL CHOL ATP-III CLASSIFICATION Cardiovascular Risk HDL > or equal to 60 mg/dL LOW HDL < 40 mg/dL HIGHPerformed By: #### CCP, RA ####[facility] ,#### URMACRERAT, LIPID, ESR ####[facility] [address] [place] [address] [place] Cholesterol in LDL Calc [Mass/Vol]Ordered By: Peri Tyson on 08-11-2024 Cholesterol in LDL [Mass/Vol]Cholesterol in LDL [Mass/volume] in Serum or Plasma by calculation0Kettering HealthComment on above:LDL ATP III CLASSIFICATIONLDL less than 100 mg/dL OptimalLDL 100-129 mg/dL Near or above ydmniggQLW976-398 mg/dL Borderline highLDL 160-189 mg/dL HighLDL greater than 189 mg/dL Very highCholesterol in LDL [Mass/Vol]90 mg/dL0-100Kettering HealthComment on above:LDL ATP III CLASSIFICATIONLDL less than 100 mg/dL OptimalLDL 100-129 mg/dL Near or above qhklvpbYTE119-392 mg/dL Borderline highLDL 160-189 mg/dL HighLDL greater than 189 mg/dL Very highCholesterol in VLDL Calc [Mass/Vol]Ordered By: Peri Tyson on 58-66-6795Ojcurrhayrr in VLDL [Mass/Vol]Cholesterol in VLDL [Mass/volume] in Serum or Plasma by calculation Kettering HealthCholesterol in VLDL [Mass/Vol]17 mg/dLKettering HealthCreatinine [Mass/volume] in UrineOrdered By: Peri Tyson on 02-98-8648Nayghrxtpw (U) [Mass/Vol]Creatinine [Mass/volume] in Urine Kettering HealthComment on above:No reference range established Creatinine (U) [Mass/Vol]29.00 mg/dLKettering HealthComment on above:No reference range establishedCyclic Citrulliated Pep Abon 08-11-2024 Cyclic Citrulliated Pep Bi42Weytob0-12Kyx [facility] Physician GroupComment on above:Result Comment: Negative <20 Weak positive 20 - 39 Moderate positive 40 - 59 Strong positive >59 Performed at: - [facility] [id number] [place] Doffer: Jhoan Rich PhD, Phone: [phone] BY:[facility] [place] [address] [place], [place] [phone] MEDICAL DIRECTORMOGONZALO BERRY M.D. Performed By: #### CCP, RA ####[facility] ,#### URMACRERAT, LIPID, ESR ####[facility] [place] [address] [facility] Erythrocyte Sedimentation Rateon 26-11-1002UUR (Bld) [Velocity]65 mm/hHigh0-29 The [facility] Physician GroupComment on above:Result Comment: PERFORMED BY:[address] [place], [place] [phone] MEDICAL DIRECTORRONI BERRY M.D.Performed By: #### CCP, RA ####[facility] ,#### URMACRERAT, LIPID, ESR ####[address]Erythrocyte sedimentation rate by Photometric methodOrdered By: Peri Tyson on 08-11-2024 ESR Photometric method (Bld) [Velocity]Erythrocyte sedimentation rate by Photometric methodHigh0-Kettering HealthESR Photometric method (Bld) [Velocity]65 mm/hrHigh0-29Kettering HealthLipid Panelon 79-44-9427LTU Cholesterol,Dzuqfglzcy29 mg/dLNormal0-100The [facility] Physician GroupComment on above:Result Comment: LDL ATP III CLASSIFICATION LDL less than 100 mg/dL Optimal LDL 100-129 mg/dL Near or above optimal LDL 130-159 mg/dL Borderline high LDL 160-189 mg/dL High LDL greater than 189 mg/dL Very highPerformed By: #### CCP, RA ####[facility] ,#### URMACRERAT, LIPID, ESR ####[address] Triglyceride w/Kkjhpn20 mg/dLNormal0-149The [facility] Physician GroupComment on above:Result Comment: TRIG ATP III CLASSIFICATION TRIG less than 150 mg/dL Normal TRIG 150-199 mg/dL Borderline high TRIG 200-500 mg/dL High TRIG greater than 500 mg/dL Very high Standard traceable to the Center for Disease Conrtrol and Prevention (CDC) test method.Performed By: #### CCP, RA ####[facility] ,#### URMACRERAT, LIPID, ESR ####[address]VLDL ZGAHGMSIMTO74 mg/dLNoBlowing Rock Hospital Physician GroupComment on above:Performed By: #### CCP, RA ####[facility] ,#### URMACRERAT, LIPID, ESR ####[place] [address] [place] [address] USAMicroAlb Creat Ratio,Uon 08-11-2024 Creatinine, Urine (Random)29.00 mg/dLNoBlowing Rock Hospital Physician GroupComment on above:Result Comment: No reference range establishedPerformed By: #### CCP, RA ####[facility] ,#### URMACRERAT, LIPID, ESR ####[place] [address] [place] [id number] USAMicroalbumin/Creatinine Ratio 51.7 mg/gHigh0.0-30.0The [facility] Physician GroupComment on above:Result Comment: 30-300 mg/g indicates an increased risk for diabetic nephropathy. Greater than 300 mg/g is consistent with clinical nephropathy. (Am. J. Kidney Disease 1995, 25:107)PERFORMED BY:[address] [place], [place] [phone] MEDICAL DIRECTORRONI MONTES M.D.Performed By: #### CCP, RA ####[facility] ,#### URMACRERAT, LIPID, ESR ####[place] [address] [place] [address] USAMicroalbumin [Mass/volume] in UrineOrdered By: Peri Tyson on 28-09-4939Frxqlcl DL <= 20 mg/L (U) [Mass/Vol]Microalbumin [Mass/volume] in Urine0.0-1.8Kettering HealthAlbumin DL <= 20 mg/L (U) [Mass/Vol]1.5 mg/dLNormal0.0-1.8[facility] Comment on above:Performed By: #### CCP, RA ####[facility] ,#### URMACRERAT, LIPID, ESR ####[facility] [address] [place] [address] USARheumatoid Factoron 99-39-4735Quwtssylek Factor<10.0 Normal<14.0The [facility] Physician GroupComment on above:Result Comment: Performed at: - [facility]co[facility] [address] [place], [place] [id number] [place] Doffer: Jhoan Rich PhD, Phone: [phone] By: #### CCP, RA ####[facility] ,#### URMACRERAT, LIPID, ESR ####[facility] [address] [place] [address] USASerum or plasma cyclic adenosine monophosphate measurement (moles/volume)Ordered By: Peri Tyson on 08-33-5576Fuclpppjw monophosphate.cyclic [Moles/Vol]12 units0-19Kettering HealthComment on above:Negative <20 Weak positive 20 - 39 Moderate positive 40 - 59 Strong positive >59Performed at:[facility] [id number] Director: Jhoan Rich PhD, Phone: [phone] or plasma rheumatoid factor measurement (units/volume) Ordered By: Peri Tyson on 29-68-3107Xabzczsblv factor Qn[IU]/mL<14.0Kettering HealthComment on above:Performed at: [facility] [id number] Director: Jhoan Rich PhD, Phone: [phone] or plasma total cholesterol/high density lipoprotein (HDL) cholesterol mass ratOrdered By: Peri Tyson on 08-11-2024 Cholesterol.total/Cholesterol in HDL [Mass ratio]Serum or plasma total cholesterol/high density lipoprotein (HDL) cholesterol mass rat<5.0K[facility]tering HealthCholesterol.total/Cholesterol in HDL [Mass ratio]3.1 {ratio}Normal<5.0K[facility]tering HealthComment on above:Result Comment: PERFORMED BY:[place] [address], [place] [phone] MEDICAL DIRECTORRONI BERRY M.D. Performed By: #### CCP, RA ####[facility] ,#### URMACRERAT, LIPID, ESR ####[facility] [place] [address] [facility] Triglyceride [Mass/volume] in Serum or PlasmaOrdered By: Peri Tyson on 83-43-3340Nlwfbdbiezjg [Mass/Vol]Triglyceride [Mass/volume] in Serum or Plasma 0-149Kettering HealthComment on above:TRIG ATP III CLASSIFICATIONTRIG less than 150 mg/dL NormalTRIG 150-199 mg/dL Borderline highTRIG 200-500 mg/dL High TRIG greater than 500 mg/dL Very highStandard traceable to the Center for Disease Conrtrol and Prevention (CDC) test method. Triglyceride [Mass/Vol]85 mg/dL0-149K[facility]tering HealthComment on above:TRIG ATP III CLASSIFICATIONTRIG less than 150 mg/dL NormalTRIG 150-199 mg/dL Borderline highTRIG 200-500 mg/dL High TRIG greater than 500 mg/dL Very highStandard traceable to the Center for Disease Conrtrol and Prevention (CDC) test method.Urine microalbumin/creatinine mass ratioOrdered By: Peri Tyson on 84-71-0256Ugortlw/Creatinine DL <= 20 mg/L (U) [Mass ratio]Urine microalbumin/creatinine mass ratioHigh0.0-30.0[facility] Comment on above:30-300 mg/g indicates an increased risk for diabetic nephropathy. Greater than 300 mg/g is consistent with clinical nephropathy. (Am. J. Kidney Disease 1995, 25:107)Albumin/Creatinine DL <= 20 mg/L (U) [Mass ratio] 51.7 mg/gHigh0.0-30.0Kettering HealthComment on above:30-300 mg/g indicates an increased risk for diabetic nephropathy. Greater than 300 mg/g is consistent with clinical nephropathy. (Am. J. Kidney Disease 1994, 25:107) Glucose (Bld) [Mass/Vol]Ordered By: Rossi Hurt on 55-12-7343Lssbwek Blood, AUR496 mg/dLNOWI HealthcareLaboratory - Hematology and Cell countson 05-25-2024 HbA1c (Bld) [Mass fraction]13.4 %[facility] HospitalNo Panel InformationOrdered By: Rossi Hurt on 54-19-0356QFEO HealthcareFREE K+L LT CHAINS, QN, Son 02-26-2024 FREE KAPPA LIGHT CHAINS, S234 mg/LHigh3.3 - 19.4 mg/LNOMS HealthcareFREE LAMBDA LIGHT CHAINS, S38.4 mg/LHigh5.7 - 26.3 mg/LNOMS HealthcareKAPPA/LAMBDA RATIO, S 6.78Blwx2.26 - 1.65NOWI HealthcareComment on above:Performed at: [facility] [id number] [place] Doffer: Jhoan Rich PhD, Phone: [phone] IMMUNOFIXATION,SERUM ([facility])on 14-63-7930SPZLNUJCZAQHFS, SERUMCommentCritically abnormal.[facility] HealthcareComment on above: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 PLEASE NOTE: Samples from patients receiving DARZALEX(R) (daratumumab) or SARCLISA(R)(isatuximab-irfc) treatment can appear as an IgG kappa and mask a complete response (CR). If this patient is receiving these therapies, this MITCH assay interference can be removed by ordering test number 256005- Immunofixation, Daratumumab-Specific, Serum or 816518- Immunofixation, Isatuximab-Specific, Serum and submitting a new sample for testing or by calling the lab to add this test to the current sample. IMMUNOGLOBULIN A, OVDXT340 mg/ePPqas42 - 352 mg/dLNOWI HealthcareIMMUNOGLOBULIN G1714 mg/wPPspp869 - 1602 mg/dLNOWI HealthcareIMMUNOGLOBULIN M, SERUM86 mg/dL26 - 217 mg/dLNOWI HealthcareComment on above:Performed at: [facility] [id number] [place] Doffer: Jhoan Rich PhD, Phone: [phone] No Panel Informationon 94-18-7535Mbnpczraapkigi and review of laboratory results AbnormalNOJohn J. Pershing VA Medical CenterNOWI HealthcareProtein electrophoresis, serumon 60-37-6285Hdzdtpy [Mass/Vol]3.3 g/dL2.9 - 4.4 g/dLSac-Osage Hospital Albumin/Globulin [Mass ratio]0.8 {ratio}0.7 - 1.7NOJohn J. Pershing VA Medical CenterThpfhurkeaYJEAQ-5-SAZHGOOR 0.3 g/dL0.0 - 0.4 g/dLNOJohn J. Pershing VA Medical CenterZwnoeyichcPIVOF-6-GNAFLZTZ4.9 g/dL0.4 - 1.0 g/dLNOWI HealthcareBETA GLOBULIN1.2 g/dL0.7 - 1.3 g/dLNOJohn J. Pershing VA Medical CenterGAMMA GLOBULIN1.7 g/dL0.4 - 1.8 g/dLSac-Osage HospitalGlobulin (S) [Mass/Vol]4.1 g/dLHigh2.2 - 3.9 g/dLNOWI HealthcareM-SPIKE0.9 g/dLHighNot ObservedNOWI HealthcareProtein [Mass/Vol]7.4 g/dL6.0 - 8.5 g/dLSac-Osage HospitalSPE-NOTEComment.[facility] Comment on above:Protein electrophoresis scan will follow via computer, mail, or water softener service supervisor delivery. Performed at: [facility] [id number] [place] Doffer: Jhoan Rich PhD, Phone: [phone] Alanine aminotransferase [Enzymatic activity/volume] in Serum or PlasmaOrdered By: Roxane Bills on 40-44-5429YUE [Catalytic activity/Vol]Alanine aminotransferase [Enzymatic activity/volume] in Serum or PlasmaHigh7-52K[facility]tering HealthAlbumin [Mass/volume] in Serum or Plasma by Bromocresol green (BCG) dye binding methoOrdered By: Roxane Bills on 56-92-7561Wxjszpo BCG dye [Mass/Vol] Albumin [Mass/volume] in Serum or Plasma by Bromocresol green (BCG) dye binding metho3.5-5.7FAshtabula General HospitalAlkaline phosphatase [Enzymatic activity/volume] in Serum or PlasmaOrdered By: Roxane Bills on 13-80-3658IED [Catalytic activity/Vol]Alkaline phosphatase [Enzymatic activity/volume] in Serum or DuyonjBnit23-697NlmlywvizKettering HealthAspartate aminotransferase [Enzymatic activity/volume] in Serum or PlasmaOrdered By: Roxane Bills on 95-77-0611DRB [Catalytic activity/Vol]Aspartate aminotransferase [Enzymatic activity/volume] in Serum or QecpfxKqjq05-72VloezzkrkKettering HealthBasophils Auto (Bld) [#/Vol]Ordered By: Roxane Bills on 02-24-2024 Basophils (Bld) [#/Vol]Automated basophil count0.0-0.2FAshtabula General HospitalBasophils/100 WBC Auto (Bld)Ordered By: Roxane Bills on 02-24-2024 Basophils/100 WBC (Bld)Automated basophil %.[facility] Bilirubin.total [Mass/volume] in Serum or PlasmaOrdered By: Roxane Bills on 06-03-3530Iuyrlwpyi [Mass/Vol]Bilirubin.total [Mass/volume] in Serum or Plasma 0.3-1.0K[facility]tering HealthCBC W Auto Differential panel (Bld)on 70-30-8355Lqqjtutcu (Bld) [#/Vol]0.1 10*3/uL0.0 - 0.2 10*3/uLNOMS Healthcare Basophils/100 WBC Manual cnt (Syn fld)0.5 %.[facility] HealthcareEosinophils (Bld) [#/Vol]0.5 10*3/uLHigh0.0 - 0.45 10*3/uLNOMS HealthcareEosinophils/100 WBC Manual cnt (Syn fld)4.5 %.[facility] HealthcareErythrocyte distribution width (RBC) [Ratio]15 %11.9 - 15.3 %[facility] HealthcareHematocrit (Bld) [Volume fraction]38.8 % 34.0 - 46.4 %[facility] HospitalHemoglobin (Bld) [Mass/Vol]12.5 g/dL11.8 - 15.4 g/dL [facility] HealthcareInterpretation and review of laboratory resultsAbnormalUINTAH BASIN [facility]ICAL [facility] HealthcareLymphocytes (Bld) [#/Vol]2.2 10*3/uL1.00 - 4.8 10*3/uLNOMS Healthcare Lymphocytes/100 WBC Manual cnt (Syn fld)21.3 %.[facility] HealthH (RBC) [Entitic mass]28.4 pg24.7 - 34.3 pgNOMS HealthcareMCHC (RBC) [Mass/Vol]32.2 g/dL32.0 - 35.0 g/dLCarondelet HealthV (RBC) [Entitic vol]88.3 fL80 - 100 fLUINTAH BASIN [facility] Healthcare Monocytes (Bld) [#/Vol]0.7 10*3/uL0.0 - 0.8 10*3/uLNOWI Healthcare Monocytes+Macrophages/100 WBC Manual cnt (Syn fld)6.5 %.[facility] Healthcare Neutrophils (Bld) [#/Vol]7 10*3/uL1.8 - 7.7 10*3/uLNOMS Healthcare Neutrophils/100 WBC Manual cnt (Syn fld)67.2 %.[facility] HealthcareNRBC0 /100{WBC}0 - 0.5 /100{WBC}NOM HealthcarePlatelet mean volume (Bld) [Entitic vol]7.8 fL6.3 - 10.7 fLUINTAH BASIN MEDICAL CENTER HealthcarePlatelets (Bld) [#/Vol]209 10*3/uL150 - 450 10*3/uLNOJohn J. Pershing VA Medical CenterRBC LM.HPF (Urine sed) [#/Area]4.39 10*6/uL3.60 - 5.00 10*6/uLNOJohn J. Pershing VA Medical CenterWBC (Bld) [#/Vol]10.5 10*3/uL3.8 - 11.6 10*3/uLNOMS HealthcareWBC LM.HPF (Urine sed) [#/Area]10.5 10*3/uL3.8 - 11.6 10*3/uLNOCarondelet Health HealthcareCalcium [Mass/volume] in Serum or PlasmaOrdered By: Roxane Bills on 08-88-1751Oueoctv [Mass/Vol]Calcium [Mass/volume] in Serum or PlasmaLow8.6-10.3 [facility] HealthCarbon dioxide, total [Moles/volume] in Serum or PlasmaOrdered By: Roxane Bills on 70-56-9875JO6 [Moles/Vol]Carbon dioxide, total [Moles/volume] in Serum or HeksndRivr71.0-31.0[facility] Chloride [Moles/volume] in Serum or PlasmaOrdered By: Roxane Bills on 02-24-2024 Chloride [Moles/Vol]Chloride [Moles/volume] in Serum or Uxayzv59-244ZhqvzcijaKettering HealthComplete Blood Count Auto Diffon 19-46-4649Iejicqqxw (Bld) [#/Vol]0.1 10*3/uLNormal0.0-0.2The [facility] Physician GroupComment on above:Result Comment: PERFORMED BY:[address] [place], [place] [phone] MEDICAL DIRECTORRONI MONTES M.D.Performed By: #### FE and TIBC, CLEOPATRA, CBC, CMP ####[address]#### SPE, MITCH SERUM, KAPPA ####[facility] ,Basophils/100 WBC (Bld)0.5 %Normal.The [facility] Physician GroupComment on above:Performed By: #### FE and TIBC, CLEOPATRA, CBC, CMP ####[address]#### SPE, MITCH SERUM, KAPPA ####[facility] ,Eosinophils (Bld) [#/Vol]0.5 10*3/uLHigh0.0-0.45The [facility] Physician GroupComment on above:Performed By: #### FE and TIBC, CLEOPATRA, CBC, CMP ####[address]#### SPE, MITCH SERUM, KAPPA ####[facility] ,Eosinophils/100 WBC (Bld)4.5 %Normal.The [facility] Comment on above:Performed By: #### FE and TIBC, CLEOPATRA, CBC, CMP ####[address]#### SPE, MITCH SERUM, KAPPA ####[facility] ,Erythrocyte distribution width (RBC) [Ratio]15.0 %Jypmif31.9-15.3The [facility] Physician GroupComment on above:Performed By: #### FE and TIBC, CLEOPATRA, CBC, CMP ####[address]#### SPE, MITCH SERUM, KAPPA ####[facility] ,Hematocrit (Bld) [Volume fraction]38.8 %Xelqeg51.0-46.4The [facility] Physician GroupComment on above:Performed By: #### FE and TIBC, CLEOPATRA, CBC, CMP ####[place] [address] [place]#### SPE, MITCH SERUM, KAPPA ####[facility] ,Hemoglobin (Bld) [Mass/Vol]12.5 g/aIYpbgwc54.8-15.4The [facility] Physician GroupComment on above: Performed By: #### FE and TIBC, CLEOPATRA, CBC, CMP ####[address]#### SPE, MITCH SERUM, KAPPA ####[facility] ,Lymphocytes (Bld) [#/Vol]2.2 10*3/uLNormal1.00-4.8The [facility] Physician GroupComment on above:Performed By: #### FE and TIBC, CLEOPATRA, CBC, CMP ####[address]#### SPE, MITCH SERUM, KAPPA ####[facility] ,Lymphocytes/100 WBC (Bld)21.3 % Normal.The [facility] Physician GroupComment on above:Performed By: #### FE and TIBC, CLEOPATAR, CBC, CMP ####[place] [address] [place]#### SPE, MITCH SERUM, KAPPA ####[facility] ,MCH (RBC) [Entitic mass]28.4 avEcrnye57.7-34.3The [facility] Physician GroupComment on above:Performed By: #### FE and TIBC, CLEOPATRA, CBC, CMP ####[place] [address] [place]#### SPE, MITCH SERUM, KAPPA ####[facility] ,MCV (RBC) [Entitic vol]88.3 aCPkyhov18-367Nbu [facility] Physician GroupComment on above:Performed By: #### FE and TIBC, CLEOPATRA, CBC, CMP ####[address]#### SPE, MITCH SERUM, KAPPA ####[facility] ,Mean Corpuscular HGB Conc32.2 g/gKKmhoed76.0-35.0The [facility] Physician GroupComment on above: Performed By: #### FE and TIBC, CLEOPATRA, CBC, CMP ####[address]#### SPE, MITCH SERUM, KAPPA ####[facility] ,Monocytes (Bld) [#/Vol]0.7 10*3/uLNormal0.0-0.8The [facility] Physician GroupComment on above:Performed By: #### FE and TIBC, CLEOPATRA, CBC, CMP ####[place] [address] [place]#### SPE, MITCH SERUM, KAPPA ####[facility] ,Monocytes/100 WBC (Bld)6.5 % Normal.The [facility] Physician GroupComment on above:Performed By: #### FE and TIBC, CLEOPATRA, CBC, CMP ####[place] [address] [place]#### SPE, MITCH SERUM, KAPPA ####[facility] ,Neutrophils (Bld) [#/Vol]7.0 10*3/uLNormal1.8-7.7The [facility] Physician GroupComment on above:Performed By: #### FE and TIBC, CLEOPATRA, CBC, CMP ####[place] [address] [place]#### SPE, MITCH SERUM, KAPPA ####[facility] ,Neutrophils/100 WBC (Bld)67.2 %Normal.The [facility] Physician GroupComment on above:Performed By: #### FE and TIBC, CLEOPATRA, CBC, CMP ####[address]#### SPE, MITCH SERUM, KAPPA ####[facility] ,NRBC%0.0 /100{WBC}Normal0-0.5The [facility] Physician GroupComment on above:Performed By: #### FE and TIBC, CLEOPATRA, CBC, CMP ####[address]#### SPE, MITCH SERUM, KAPPA ####[facility] ,Platelet mean volume (Bld) [Entitic vol]7.8 fLNormal6.3-10.7The [facility] Physician GroupComment on above:Performed By: #### FE and TIBC, CLEOPATRA, CBC, CMP ####[address]#### SPE, MITCH SERUM, KAPPA ####[facility] ,Platelets (Bld) [#/Vol]209 10*3/oEUmarmb150-440Vjz [facility] Physician GroupComment on above:Performed By: #### FE and TIBC, CLEOPATRA, CBC, CMP ####[place] [address] [place]#### SPE, MITCH SERUM, KAPPA ####[facility] ,RBC (Bld) [#/Vol]4.39 10*6/uLNormal3.60-5.00The [facility] Physician GroupComment on above:Performed By: #### FE and TIBC, CLEOPATRA, CBC, CMP ####[place] [address] [place]#### SPE, MITCH SERUM, KAPPA ####[facility] ,WBC (Bld) [#/Vol]10.5 10*3/uLNormal3.8-11.6The [facility] Physician GroupComment on above:Performed By: #### FE and TIBC, CLEOPATRA, CBC, CMP ####[address]#### SPE, MITCH SERUM, KAPPA ####[facility] ,Comprehensive Metabolic Panelon 10-99-4171Pmahqha [Mass/Vol]3.6 g/dLNormal3.5-5.7The [facility] Comment on above:Performed By: #### FE and TIBC, CLEOPATRA, CBC, CMP ####[address]#### SPE, MITCH SERUM, KAPPA ####[facility] ,Albumin/Globulin [Mass ratio]1.0 {ratio}Normal The [facility] Physician GroupComment on above:Performed By: #### FE and TIBC, CLEOPATRA, CBC, CMP ####[address]#### SPE, MITCH SERUM, KAPPA ####[facility] ,ALP [Catalytic activity/Vol]175 U/OHxlo40-044Mnk [facility] Physician GroupComment on above: Performed By: #### FE and TIBC, CLEOPATRA, CBC, CMP ####[place] [address] [place]#### SPE, MITCH SERUM, KAPPA ####[facility] ,ALT [Catalytic activity/Vol]74 U/LHigh7-52The [facility] Physician GroupComment on above:Performed By: #### FE and TIBC, CLEOPATRA, CBC, CMP ####[place] [address] [place]#### SPE, MITCH SERUM, KAPPA ####[facility] ,Anion gap [Moles/Vol]11.4 mmol/L Normal6.0-15.0The [facility] Physician GroupComment on above:Performed By: #### FE and TIBC, CLEOPATRA, CBC, CMP ####[place] [address] [place]#### SPE, MITCH SERUM, KAPPA ####[facility] ,AST [Catalytic activity/Vol]43 U/NFxgi20-82Dmc [facility] Physician GroupComment on above:Performed By: #### FE and TIBC, CLEOPATRA, CBC, CMP ####[place] [address] [place]#### SPE, MITCH SERUM, KAPPA ####[facility] ,Bilirubin [Mass/Vol]0.3 mg/dL Normal0.3-1.0The [facility] Physician GroupComment on above:Performed By: #### FE and TIBC, CLEOPATRA, CBC, CMP ####[address]#### SPE, MITCH SERUM, KAPPA ####[facility] ,Calcium [Mass/Vol]8.3 mg/dLLow8.6-10.3The [facility] Physician GroupComment on above: Performed By: #### FE and TIBC, CLEOPATRA, CBC, CMP ####[place] [address] [place]#### SPE, MITCH SERUM, KAPPA ####[facility] ,Chloride [Moles/Vol]98 mmol/EOixfme93-159Axa [facility] Physician GroupComment on above:Performed By: #### FE and TIBC, CLEOPATRA, CBC, CMP ####[place] [address] [place]#### SPE, MITCH SERUM, KAPPA ####[facility] ,CO2 [Moles/Vol]35.8 mmol/LHigh 21.0-31.0The [facility] Physician GroupComment on above:Performed By: #### FE and TIBC, CLEOPATRA, CBC, CMP ####[place] [address] [place]#### SPE, MITCH SERUM, KAPPA ####[facility] , Creatinine [Mass/Vol]1.32 mg/dLHigh0.60-1.20The [facility] Physician GroupComment on above:Performed By: #### FE and TIBC, CLEOPATRA, CBC, CMP ####[address]#### SPE, MITCH SERUM, KAPPA ####[facility] ,Creatinine Clr Calc Jmzcltmr84.49NormalThe [facility] Physician GroupComment on above:Performed By: #### FE and TIBC, CLEOPATRA, CBC, CMP ####[address]#### SPE, MITCH SERUM, KAPPA ####[facility] ,GFR/1.73 sq M.predicted MDRD (S/P/Bld) [Vol rate/Area]44.805 mL/min/{1.73_m2}NormalThe [facility] Physician [facility] CenterComment on above:Performed By: #### FE and TIBC, CLEOPATRA, CBC, CMP ####[address]#### SPE, MITCH SERUM, KAPPA ####[facility] ,Globulin (S) [Mass/Vol]3.6 g/dL NormalThe [facility] Physician [facility] CenterComment on above:Performed By: #### FE and TIBC, CLEOPATRA, CBC, CMP ####[place] [address] [place]#### SPE, MITCH SERUM, KAPPA ####[facility] ,Glucose [Mass/Vol]264 mg/iSFrzt17-251Uwq [facility]ician [facility] CenterComment on above: Result Comment: Random Glucose Reference Range is dependent on time and content of last meal. Glucose of more than 200 mg/dL in a nonstressed, ambulatory subject supports the diagnosis of Diabetes Mellitus. ADA recommended reference rangePerformed By: #### FE and TIBC, CLEOPATRA, CBC, CMP ####[address]#### SPE, MITCH SERUM, KAPPA ####[facility] ,Potassium [Moles/Vol]4.2 mmol/LNormal3.5-5.1The [facility] Physician GroupComment on above:Performed By: #### FE and TIBC, CLEOPATRA, CBC, CMP ####[place] [address] [place]#### SPE, MITCH SERUM, KAPPA ####[facility] ,Protein [Mass/Vol]7.2 g/dLNormal6.4-8.9The [facility] Physician GroupComment on above:Performed By: #### FE and TIBC, CLEOPATRA, CBC, CMP ####[address]#### SPE, MITCH SERUM, KAPPA ####[facility] ,Sodium [Moles/Vol]141 mmol/BMsoekr519-179Rwe [facility] Physician GroupComment on above:Performed By: #### FE and TIBC, CLEOPATRA, CBC, CMP ####[place] [address] [place]#### SPE, MITCH SERUM, KAPPA ####[facility] ,Urea nitrogen [Mass/Vol]24 mg/dL Normal7-25The [facility] Physician GroupComment on above:Performed By: #### FE and TIBC, CLEOPATRA, CBC, CMP ####[place] [address] [place]#### SPE, MITCH SERUM, KAPPA ####[facility] , Comprehensive metabolic panelon 32-35-8074Tfrxvfo [Mass/Vol]3.6 g/dL3.5 - 5.7 g/dLNOMS HealthcareAlbumin/Globulin [Mass [...] HealthcareCreatinine (U) [Mass/Vol]1.32 mg/dLHigh0.60 - 1.20 mg/dL NOMS HealthcareCREATININE CLR CALC OBFZGIYU84.49NOMS HealthcareGFR/1.73 sq M.predicted MDRD (S/P/Bld) [Vol rate/Area]44.805 mL/min/{1.73_m2}[facility] Globulin (S) [Mass/Vol]3.6 g/dLNOMS HealthcareGlucose [Mass/Vol]264 mg/yJWzwi52 - 100 mg/dLNOWI HealthcareComment on above:Random Glucose Reference Range is dependent on time and content of last meal. Glucose of more than 200 mg/dL in a nonstressed, ambulatory subject supports the diagnosis of Diabetes Mellitus. ADA recommended reference range Potassium [Moles/Vol]4.2 mmol/L3.5 - 5.1 mmol/LNOMS HealthcareProtein [Mass/Vol] 7.2 g/dL6.4 - 8.9 g/dLNOWI HealthcareSodium [Moles/Vol]141 mmol/L136 - 145 mmol/LNOMS HealthcareUrea nitrogen [Mass/Vol]24 mg/dL7 - 25 mg/dLNOWI Healthcare Creatinine [Mass/volume] in Serum or PlasmaOrdered By: Roxane Bills on 02-24-2024 Creatinine [Mass/Vol]Creatinine [Mass/volume] in Serum or PlasmaHigh0.60-1.20 [facility] HealthEosinophils Auto (Bld) [#/Vol]Ordered By: Roxane Bills on 32-84-7818Hxkuyveufeo (Bld) [#/Vol]Automated eosinophil countHigh 0.0-0.45[facility] HealthEosinophils/100 WBC Auto (Bld)Ordered By: Roxane Bills on 11-20-3193Wwuebosvnxi/100 WBC (Bld)Automated eosinophil %. [facility] HealthErythrocyte distribution width Auto (RBC) [Ratio]Ordered By: Roxane Bills on 64-26-9911Wrmxdmhmyiz distribution width (RBC) [Ratio]Erythrocyte distribution width [Ratio] by Automated count11.9-15.3 [facility] HealthFerritinon 37-80-2235Ihtevwnz [Mass/Vol]161.8 ng/mL11.0 - 306.8 ng/mLNOMS HealthcareFerritin [Mass/Vol]161.8 ng/mLNormal 11.0-306.8The [facility] Physician GroupComment on above:Result Comment: PERFORMED BY:[address] [place], [place] [phone] MEDICAL DIRECTORRONI BERRY M.D. Performed By: #### FE and TIBC, CLEOPATRA, CBC, CMP ####[address]#### SPE, MITCH SERUM, KAPPA ####[facility] ,Ferritin [Mass/volume] in Serum or PlasmaOrdered By: Roxane Bills on 35-21-8929Tkojfxyf [Mass/Vol]Ferritin [Mass/volume] in Serum or Plasma 11.0-306.8[facility] HealthFree K+L LT Chains, Qn, Son 95-99-1403Ledp Coolidge Light Chains, S234.0 mg/LHigh3.3-19.4The [facility] Physician GroupComment on above:Performed By: #### FE and TIBC, CLEOPATRA, CBC, CMP ####[address]#### SPE, MITCH SERUM, KAPPA ####[facility] ,Free Lambda Light Chains, S38.4 mg/LHigh5.7-26.3The [facility] Physician GroupComment on above:Performed By: #### FE and TIBC, CLEOPATRA, CBC, CMP ####[facility]#### SPE, MITCH SERUM, KAPPA ####[facility] ,Coolidge/Lambda Ratio, S6.95Xntj7.26-1.65The [facility] Physician GroupComment on above:Result Comment: Performed at: - [facility] [id number] [place] D[place]: Jhoan Rich PhD, Phone: [phone] BY:[address] [phone] MEDICAL DIRECTORMOGONZALO BERRY M.D. Performed By: #### FE and TIBC, CLEOPATRA, CBC, CMP ####[facility]#### SPE, MTICH SERUM, KAPPA ####[facility] ,Globulin Calc (S) [Mass/Vol]Ordered By: Roxane Bills on 02-24-2024 Globulin (S) [Mass/Vol]Serum globulin measurement by calculation (mass/volume) [facility] HealthGlucose [Mass/volume] in Serum or PlasmaOrdered By: Roxane Bills on 23-49-2124Gxbnvlk [Mass/Vol]Glucose [Mass/volume] in Serum or KnuicaRkgs93-623OrguvzqzkKettering HealthComment on above:ADA recommended reference rangeRandom Glucose Reference Range is dependent on time and content of last meal. Glucose of more than 200 mg/dL in a nonstressed, ambulatory subject supports the diagnosisof Diabetes Mellitus.Hematocrit Auto (Bld) [Volume fraction]Ordered By: Roxane Bills on 58-69-9693Rxkldxoeqi (Bld) [Volume fraction]Hematocrit [Volume Fraction] of Blood by Automated count 34.0-46.4FAshtabula General HospitalHemoglobin [Mass/volume] in Blood Ordered By: Roxane Bills on 33-90-5213Qknghjlgze (Bld) [Mass/Vol]Hemoglobin [Mass/volume] in Blood11.8-15.4FAshtabula General Hospital Immunofixation,Serumon 48-40-5003Azclkjkitbarbv, SerumCommentCritically abnormal .The [facility] Physician GroupComment on above:Result Comment: 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 PLEASE NOTE: Samples from patients receiving DARZALEX(R) (daratumumab) or SARCLISA(R)(isatuximab-irfc) treatment can appear as an IgG kappa and mask a complete response (CR). If this patient is receiving these therapies, this MITCH assay interference can be removed by ordering test number [id number]- Immuno fixation, Daratumumab-Specific, Serum or 139756- Immunofixation, Isatuximab- Specific, Serum and submitting a new sample for testing or by calling the lab to add this test to the current sample.Performed By: #### FE and TIBC, CLEOPATRA, CBC, CMP ####[address]#### SPE, MITCH SERUM, KAPPA ####[facility] ,Immunoglobulin A, Serum 519 mg/cQZbki62-180Mwr [facility] HospitalComment on above:Performed By: #### FE and TIBC, CLEOPATRA, CBC, CMP ####[address]#### SPE, MITCH SERUM, KAPPA ####[facility] ,Immunoglobulin G1714 mg/eJBqiy954-8215Rvj [facility] HospitalComment on above:Performed By: #### FE and TIBC, CLEOPATRA, CBC, CMP ####[address]#### SPE, MITCH SERUM, KAPPA ####[facility] ,Immunoglobulin M, Serum86 mg/dL Xwckwo68-600Vtd [facility] HospitalComment on above:Result Comment: Performed at: - [facility] [id number] [place] D[place]: Jhoan Rich PhD, Phone: [phone] By: #### FE and TIBC, CLEOPATRA, CBC, CMP ####[address]#### SPE, MITCH SERUM, KAPPA ####[facility] ,Iron [Mass/volume] in Serum or PlasmaOrdered By: Roxane Bills on 63-90-0612Vwon [Mass/Vol]Iron [Mass/volume] in Serum or Ldbisv58-402XjntvqfzpKettering HealthIron and Iron binding capacity panelon 02-24-2024% IRON SWMPUOGZRT07.1 % Low20 - 50 %NOMS HealthcareIron [Mass/Vol]55 ug/dL50 - 212 ug/dLNOMS Healthcare TOTAL IRON BINDING VESDZNHD773 ug/dL255 - 450 ug/dLNOMS HealthcareTransferrin [Mass/Vol]230 mg/dL203 - 362 mg/dLNOWI HealthcareIron and TIBC Profileon 02-24-2024% Iron Owredyzlhn29.1 %Tpu51-60Pwg [facility] Physician GroupComment on above:Performed By: #### FE and TIBC, CLEOPATRA, CBC, CMP ####[place] [address] [place]#### SPE, MITCH SERUM, KAPPA ####[facility] ,Iron [Mass/Vol]55 ug/jMCunxeg12-901Nrh [facility] Physician GroupComment on above:Performed By: #### FE and TIBC, CLEOPATRA, CBC, CMP ####[place] [address] [place]#### SPE, MITCH SERUM, KAPPA ####[facility] ,Total Iron Binding Pvsqawmy138 ug/nUXfcfxh440-643Ftk [facility] Physician GroupComment on above:Performed By: #### FE and TIBC, CLEOPATRA, CBC, CMP ####[place] [address] [place]#### SPE, MITCH SERUM, KAPPA ####[facility] ,Transferrin [Mass/Vol]230 mg/rYImspih155-323Uuu [facility] Physician GroupComment on above:Performed By: #### FE and TIBC, CLEOPATRA, CBC, CMP ####[facility] [id number] [place] [address] [facility]#### SPE, MITCH SERUM, KAPPA ####[facility] ,Laboratory - Chemistry and Chemistry - challengeOrdered By: Roxane Bills on 18-02-2826Jssmlon [Mass/Vol]0.9 g/dLHighNot ObservedKettering HealthLeukocytes [#/volume] corrected for nucleated erythrocytes in Blood by Automated counOrdered By: Roxane Bills on 10-62-8507BKJ corrected for nucl RBC Auto (Bld) [#/Vol]Leukocytes [#/volume] corrected for nucleated erythrocytes in Blood by Automated coun 3.8-11.6FAshtabula General HospitalLymphocytes Auto (Bld) [#/Vol]Ordered By: Roxane Bills on 49-56-6459Vgqyyfwdzxy (Bld) [#/Vol]Lymphocytes [#/volume] in Blood by Automated count1.00-4.8[facility] HealthLymphocytes/100 WBC Auto (Bld)Ordered By: Roxane Bills on 12-44-7381Sopjyzodkjj/100 WBC (Bld) Lymphocytes/100 leukocytes in Blood by Automated count.[facility] HealthMCH Auto (RBC) [Entitic mass]Ordered By: Roxane Bills on 02-24-2024 MCH (RBC) [Entitic mass]MCH [Entitic mass] by Automated count24.7-34.3FAshtabula General HospitalMCHC Auto (RBC) [Mass/Vol]Ordered By: Roxane Bills on 30-59-9159RJYQ (RBC) [Mass/Vol]MCHC [Mass/volume] by Automated count32.0-35.0 [facility] HealthMCV Auto (RBC) [Entitic vol]Ordered By: Roxane Bills on 59-71-9824KSS (RBC) [Entitic vol]MCV [Entitic volume] by Automated uuibk21-027ArmusymwoKettering HealthMonocytes Auto (Bld) [#/Vol]Ordered By: Roxane Bills on 89-51-5534Ubprhyqxn (Bld) [#/Vol]Automated blood monocyte count 0.0-0.8[facility] HealthMonocytes/100 WBC Auto (Bld)Ordered By: Roxane Bills on 00-60-7173Blifkpokl/100 WBC (Bld)Automated monocyte %.[facility] HealthNeutrophils Auto (Bld) [#/Vol]Ordered By: Roxane Bills on 36-48-3988Kmbgyyzpdqy (Bld) [#/Vol]Neutrophils [#/volume] in Blood by Automated count1.8-7.7FAshtabula General HospitalNeutrophils/100 WBC Auto (Bld) Ordered By: Roxane Bills on 85-04-7714Mflneriipfg/100 WBC (Bld)Automated neutrophil %.[facility] HealthNo Panel Informationon 02-24-2024 Interpretation and review of laboratory resultsAbnoOutagamie County Health CenterNo Panel InformationOrdered By: Roxane Bills on 39-57-2674Rfjcufeja GFR (CKD-EPI)44.805 mL/MinKettering HealthPharmacy Creatinine Clearance (Chem48.49[facility] HealthProtein Electrophoresis NoteComment.[facility] HealthComment on above:Protein electrophoresis scan will follow via computer,mail, or water softener service supervisor delivery.Performed at: [facility] [place] [id number] Director: Jhoan Rich PhD, Phone: [phone] erythrocytes [Presence] in Blood by Automated countOrdered By: Roxane Bills on 16-77-7651Qowpyghgf RBC Auto Ql (Bld)Nucleated erythrocytes [Presence] in Blood by Automated count0-0.5FAshtabula General HospitalPlatelet mean volume Auto (Bld) [Entitic vol]Ordered By: Roxane Bills on 56-76-3088Dfetyewh mean volume (Bld) [Entitic vol]Platelet mean volume [Entitic volume] in Blood by Automated count6.3-10.7FAshtabula General HospitalPlatelets Auto (Bld) [#/Vol] Ordered By: Roxane Bills on 81-60-6274Cjafahuei (Bld) [#/Vol]Platelets [#/volume] in Blood by Automated ahuya007-172JtqucddjqKettering HealthPotassium [Moles/volume] in Serum or PlasmaOrdered By: Roxane Bills on 29-12-3203Eavgttqqn [Moles/Vol]Potassium [Moles/volume] in Serum or Plasma3.5-5.1FAshtabula General HospitalProtein Electrophoresis, Serumon [id number] [Mass/Vol]3.3 g/dLNormal2.9-4.4The [facility] Physician GroupComment on above:Performed By: #### FE and TIBC, CLEOPATRA, CBC, CMP ####[address]#### SPE, MITCH SERUM, KAPPA ####[facility] ,Albumin/Globulin [Mass ratio]0.8 {ratio}Normal0.7-1.7The [facility] Physician GroupComment on above:Performed By: #### FE and TIBC, CLEOPATRA, CBC, CMP ####[address]#### SPE, MITCH SERUM, KAPPA ####[facility] ,Dbktd-1-Kcjslihv0.3 g/dLNormal 0.0-0.4The [facility] Physician GroupComment on above:Performed By: #### FE and TIBC, CLEOPATRA, CBC, CMP ####[place] [address] [place]#### SPE, MITCH SERUM, KAPPA ####[facility] , Yayku-4-Fqarfxsy8.9 g/dLNormal0.4-1.0The [facility] Physician GroupComment on above:Performed By: #### FE and TIBC, CLEOPATRA, CBC, CMP ####[place] [address] [place]#### SPE, MITCH SERUM, KAPPA ####[facility] ,Beta Globulin1.2 g/dLNormal0.7-1.3The [facility] Physician GroupComment on above:Performed By: #### FE and TIBC, CLEOPATRA, CBC, CMP ####[place] [address] [place]#### SPE, MITCH SERUM, KAPPA ####[facility] ,Gamma Globulin1.7 g/dLNormal 0.4-1.8The [facility] Physician GroupComment on above:Performed By: #### FE and TIBC, CLEOPATRA, CBC, CMP ####[address]#### SPE, MITCH SERUM, KAPPA ####[facility] ,Globulin (S) [Mass/Vol]4.1 g/dLHigh2.2-3.9The [facility] Physician GroupComment on above: Performed By: #### FE and TIBC, CLEOPATRA, CBC, CMP ####[address]#### SPE, MITCH SERUM, KAPPA ####[facility] ,M-Spike0.9 g/dLHighNot ObservedThe [facility] Comment on above:Performed By: #### FE and TIBC, CLEOPATRA, CBC, CMP ####[address]#### SPE, MITCH SERUM, KAPPA ####[facility] ,Protein [Mass/Vol]7.4 g/dLNormal6.0-8.5The [facility] Physician GroupComment on above:Performed By: #### FE and TIBC, CLEOPATRA, CBC, CMP ####[place] [address] [place]#### SPE, MITCH SERUM, KAPPA ####[facility] ,SPE-NoteCommentNormal. The [facility] Physician GroupComment on above:Result Comment: Protein electrophoresis scan will follow via computer, mail, or water softener service supervisor delivery. Pe rformed at: [facility] [id number] [place] Doffer: Jhoan Rich PhD, Phone: [phone] By: #### FE and TIBC, CLEOPATRA, CBC, CMP ####[address] [place] [address] [facility]#### SPE, MITCH SERUM, KAPPA ####[facility] ,Protein [Mass/volume] in Serum or PlasmaOrdered By: Roxane Bills on 14-73-7929Pupovbe [Mass/Vol]Protein [Mass/volume] in Serum or Plasma6.0-8.5FAshtabula General HospitalRBC Auto (Bld) [#/Vol]Ordered By: Roxane Bills on 94-28-2870STQ (Bld) [#/Vol]Erythrocytes [#/volume] in Blood by Automated count3.60-5.00[facility] Hospitalerum free kappa light chain measurementOrdered By: Roxane Bills on 30-92-3078Hafhnnmvrbmlil light chains.kappa.free (S) [Mass/Vol] Immunoglobulin light chains.kappa.free [Mass/volume] in SerumHigh3.3-19.4 [facility] Hospitalerum globulin measurement (mass/volume)Ordered By: Roxane Bills on 85-72-1242Pphuawpe (S) [Mass/Vol]Serum globulin measurement (mass/volume)High2.2-3.9[facility] Hospitalerum immunofixation electrophoresisOrdered By: Roxane Bills on 52-38-3926Xjthg ImmunofixationComment Abnormal.[facility]tering HealthComment on above:Immunofixation shows IgG monoclonal protein with kappalight chain specificity. PLEASE NOTE: Samples from patients receiving DARZALEX(R)(daratumumab) or SARCLISA(R)(isatuximab-[facility]) treatmentcan appear as an IgG kappa and mask a complete response(CR). If this patient is receiving these therapies, thisIFE assay interference can be removed by ordering testnumber [id number]- Immunofixation, Daratumumab-Specific,Serum or 863533- Immunofixation, Isatuximab-Specific,Serum and submitting a new sample for testing or bycalling the lab to add this test to the current sample.Serum immunoglobulin free kappa light chains/immunoglobulin free lambda light chains Ordered By: Roxane Bills on 55-71-6688Tcdttdfalgaexz light chains.kappa.free/Immunoglobulin light chains.lambda.free (S) [Mass ratio] Immunoglobulin light chains.kappa.free/Immunoglobulin light chains.lambda.free [MassHigh0.26-1.65K[facility]tering HealthComment on above:Performed at: [facility] sofat[address] [id number] Director: Jhoan Rich PhD, Phone: [phone] or plasma IgA measurement (mass/volume)Ordered By: Roxane Bills on 92-64-8526ZbU [Mass/Vol]IgA [Mass/volume] in Serum or DobvdnNxox88-172RmbbzuvwqGrant Hospitalerum or plasma IgG measurement (mass/volume)Ordered By: Roxane Bills on 79-86-9759EkK [Mass/Vol]IgG [Mass/volume] in Serum or YxbvdmCxsq337-2313YtgxvzgtrKettering Health Serum or plasma IgM measurement (mass/volume)Ordered By: Roxane Bills on 02-24-2024 IgM [Mass/Vol]IgM [Mass/volume] in Serum or Jwjzuj65-745DyhwnexniKettering HealthComment on above:Performed at: [employer] [id number] Director: Jhoan Rich PhD, Phone: [phone] Serum or plasma albumin measurement (mass/volume)Ordered By: Roxane Bills on 38-03-9821Ykwsije [Mass/Vol]Albumin [Mass/volume] in Serum or Plasma2.9-4.4 [facility] Hospitalerum or plasma albumin/globulin mass ratio Ordered By: Roxane Bills on 34-64-4517Wbaotyr/Globulin [Mass ratio]Serum or plasma albumin/globulin mass ratio0.7-1.7FPomerene Hospitalerum or plasma alpha 1 globulin measurement by electrophoresis (mass/volume)Ordered By: Roxane Bills on 41-08-8392Ufgpx 1 globulin Elph [Mass/Vol]Serum or plasma alpha 1 globulin measurement by electrophoresis (mass/volume)0.0-0.4FPomerene Hospitalerum or plasma alpha 2 globulin measurement by electrophoresis (mass/volume)Ordered By: Roxane Bills on 36-99-7161Qdhtg 2 globulin Elph [Mass/Vol] Serum or plasma alpha 2 globulin measurement by electrophoresis (mass/volume) 0.4-1.0[facility] Hospitalerum or plasma anion gap determination Ordered By: Roxane Bills on 33-05-5810Vswbo gap [Moles/Vol]Serum or plasma anion gap determination6.0-15.0[facility] Hospitalerum or plasma beta globulin measurement by electrophoresis (mass/volume)Ordered By: Roxane Bills on 07-67-1444Dcah globulin Elph [Mass/Vol]Serum or plasma beta globulin measurement by electrophoresis (mass/volume)0.7-1.3FPomerene Hospitalerum or plasma gamma globulin measurement by electrophoresis (mass/volume)Ordered By: Roxane Bills on 05-71-9092Ctwrf globulin Elph [Mass/Vol]Serum or plasma gamma globulin measurement by electrophoresis (mass/volume)0.4-1.8[facility] Hospitalerum or plasma immunoglobulin free lambda light chains measurement (mass/volume)Ordered By: Roxane Bills on 25-28-4411Urakeaowwtpcbe light chains.lambda.free [Mass/Vol]Immunoglobulin light chains.lambda.free [Mass/volume] in Serum or PlasmaHigh5.7-26.3FAshtabula General Hospital Serum or plasma iron binding capacity measurement (mass/volume)Ordered By: Roxane Bills on 08-87-6660Tsci binding capacity [Mass/Vol]Iron binding capacity [Mass/volume] in Serum or Tmfwol042-534BwjfejiaiGrant Hospitalerum or plasma iron saturation measurement (mass fraction)Ordered By: Roxane Bills on 72-40-7139Kxng saturation [Mass fraction]Iron saturation [Mass Fraction] in Serum or FmynpjKic13-94OaohwsegaGrant Hospitalodium [Moles/volume] in Serum or PlasmaOrdered By: Roxane Bills on 41-03-0501Ajqtda [Moles/Vol]Sodium [Moles/volume] in Serum or Kzbjil164-017MhjntxidrKettering Health Transferrin [Mass/volume] in Serum or PlasmaOrdered By: Roxane Bills on 02-24-2024 Transferrin [Mass/Vol]Transferrin [Mass/volume] in Serum or Mhlemz875-193 [facility] HealthUrea nitrogen [Mass/volume] in Serum or Plasma Ordered By: Roxane Bills on 38-44-6235Odoa nitrogen [Mass/Vol]Urea nitrogen [Mass/volume] in Serum or Plasma7-25K[facility] HealthWBC Auto (Bld) [#/Vol]Ordered By: Roxane Bills on 94-67-2337HAO (Bld) [#/Vol]Leukocytes [#/volume] in Blood by Automated count3.8-11.6FAshtabula General Hospital Glucose (Bld) [Mass/Vol]Ordered By: Rossi Hurt on 35-12-4584Uhuexka Blood, UAN574 mg/dLSac-Osage HospitalInterpretation and review of laboratory results AbnormalNOCarondelet Health UgwglhdewbSiE7n (Bld) [Mass fraction]on 01-20-2024 Interpretation and review of laboratory resultsAbnormalCritical access hospitalLaboratory - Hematology and Cell countson 02-92-3812FzM0z (Bld) [Mass fraction]9.1 %[facility] HealthcareAlanine aminotransferase [Enzymatic activity/volume] in Serum or PlasmaOrdered By: Roxane Bills on 81-71-7104TGS [Catalytic activity/Vol]18 U/L7-52K[facility] HealthAlbumin [Mass/volume] in Serum or PlasmaOrdered By: Roxane Bills on 13-26-1919Feejnst [Mass/Vol]3.6 g/dL2.9-4.4FAshtabula General HospitalAlbumin [Mass/volume] in Serum or Plasma by Bromocresol green (BCG) dye binding methoOrdered By: Roxane Bills on 42-96-9534Nmmwkfj BCG dye [Mass/Vol]4.0 g/dL3.5-5.7FAshtabula General HospitalAlkaline phosphatase [Enzymatic activity/volume] in Serum or PlasmaOrdered By: Roxane Bills on 33-73-1870DCM [Catalytic activity/Vol]133 U/L 34-104K[facility]tering HealthAspartate aminotransferase [Enzymatic activity/volume] in Serum or PlasmaOrdered By: Roxane Bills on 35-78-5627KKX [Catalytic activity/Vol]20 U/Q86-99UqzenjujcKettering HealthBasophils Auto (Bld) [#/Vol]Ordered By: Roxane Bills on 18-36-1570Wqyusqrun (Bld) [#/Vol]0.1 10*3/uL0.0-0.2FAshtabula General HospitalBasophils/100 WBC Auto (Bld) Ordered By: Roxane Bills on 27-22-4794Nlrsrfipb/100 WBC (Bld)0.6 %.[facility] HealthBilirubin.total [Mass/volume] in Serum or PlasmaOrdered By: Roxane Bills on 97-49-5575Hlvfglznl [Mass/Vol]0.3 mg/dL0.3-1.0[facility] HealthCalcium [Mass/volume] in Serum or PlasmaOrdered By: Roxane Bills on 33-49-1947Sqqfygd [Mass/Vol]9.1 mg/dL8.6-10.3FAshtabula General HospitalCarbon dioxide, total [Moles/volume] in Serum or PlasmaOrdered By: Roxane Bills on 79-80-4608ZI4 [Moles/Vol]36.2 mmol/L21.0-31.0[facility] HealthChloride [Moles/volume] in Serum or PlasmaOrdered By: Roxane Bills on 27-06-6011Yctsuqgn [Moles/Vol]97 mmol/O24-373BrrhajevoKettering Health Creatinine [Mass/volume] in Serum or PlasmaOrdered By: Roxane Bills on 08-24-2023 Creatinine [Mass/Vol]1.41 mg/dL0.60-1.20[facility] Eosinophils Auto (Bld) [#/Vol]Ordered By: Roxane Bills on 39-63-5327Hwvfsieqhxf (Bld) [#/Vol]0.6 10*3/uL0.0-0.45K[facility] HealthEosinophils/100 WBC Auto (Bld)Ordered By: Roxane Bills on 84-07-5977Jfbbraqxxss/100 WBC (Bld)5.5 % .[facility]tering HealthErythrocyte distribution width Auto (RBC) [Ratio]Ordered By: Roxane Bills on 92-51-8183Ptxzjzkwelz distribution width (RBC) [Ratio]14.4 %11.9-15.3FAshtabula General HospitalFerritin [Mass/volume] in Serum or PlasmaOrdered By: Roxane Bills on 35-86-5994Fxamgbsx [Mass/Vol]111.9 ng/mL11.0-306.8K[facility] HealthGlobulin Calc (S) [Mass/Vol] Ordered By: Roxane Bills on 87-38-3987Roxgqoyh (S) [Mass/Vol]3.8 g/dLKettering HealthGlucose [Mass/volume] in Serum or PlasmaOrdered By: Roxane Garibayse on 49-49-8803Taxnnrg [Mass/Vol]86 mg/nN55-556RfjemeyrjKettering HealthComment on above:ADA recommended reference rangeRandom Glucose Reference Range is dependent on time and content of last meal. Glucose of more than 200 mg/dL in a nonstressed, ambulatory subject supports the diagnosisof Diabetes Mellitus.Hematocrit Auto (Bld) [Volume fraction]Ordered By: Roxane Bills on 15-85-5799Qiwgiygikz (Bld) [Volume fraction]40.0 %34.0-46.4FAshtabula General HospitalHemoglobin [Mass/volume] in BloodOrdered By: Roxane Bills on 50-82-9370Qvtewbmedh (Bld) [Mass/Vol]13.1 g/dL11.8-15.4FAshtabula General HospitalIgA [Mass/volume] in Serum or PlasmaOrdered By: Roxane Bills on 91-39-0147HcM [Mass/Vol]604 mg/oB38-076PwmtxvbxnKettering HealthIgG [Mass/volume] in Serum or PlasmaOrdered By: Roxane Sanju on 82-83-3695KmT [Mass/Vol]1722 mg/eH414-0118IxtoyoocqKettering HealthIgM [Mass/volume] in Serum or PlasmaOrdered By: Roxane Bills on 49-09-1509SxZ [Mass/Vol]94 mg/dL 26-217K[facility]tering HealthComment on above:Performed at: [facility] [id number] Director: Jhoan Rich PhD, Phone: [phone] [Mass/volume] in Serum or PlasmaOrdered By: Roxane Bills on 61-31-2262Susm [Mass/Vol]57 ug/dG84-259HldtlzdquKettering HealthIron binding capacity [Mass/volume] in Serum or PlasmaOrdered By: Roxane Bills on 93-34-7738Tblk binding capacity [Mass/Vol]354 ug/mB062-482RwplttrujKettering HealthIron saturation [Mass Fraction] in Serum or PlasmaOrdered By: Roxane Bills on 75-41-9942Easy saturation [Mass fraction]16.1 %20-50K[facility] HealthLaboratory - Chemistry and Chemistry - challengeOrdered By: Roxane Bills on 29-10-1789Eyahbik [Mass/Vol]0.8 g/dLNot ObservedKettering HealthLeukocytes [#/volume] corrected for nucleated erythrocytes in Blood by Automated counOrdered By: Roxane Bills on 10-05-1554QNU corrected for nucl RBC Auto (Bld) [#/Vol]11.3 10*3/uL3.8-11.6FAshtabula General HospitalLymphocytes Auto (Bld) [#/Vol]Ordered By: Roxane Bills on 08-24-2023 Lymphocytes (Bld) [#/Vol]2.5 10*3/uL1.00-4.8[facility] Lymphocytes/100 WBC Auto (Bld)Ordered By: Roxane Bills on 14-93-0562Ulmqyouvlsa/100 WBC (Bld)22.1 %.[facility] Auto (RBC) [Entitic mass] Ordered By: Roxane Bills on 90-20-1626PBI (RBC) [Entitic mass]29.1 pg24.7-34.3 [facility]HC Auto (RBC) [Mass/Vol]Ordered By: Roxane Bills on 57-88-0909CUYV (RBC) [Mass/Vol]32.6 g/dL32.0-35.0[facility] HealthMCV Auto (RBC) [Entitic vol]Ordered By: Roxane Bills on 21-00-2051CTN (RBC) [Entitic vol]89.1 dK76-186LazccptgjKettering HealthMonocytes Auto (Bld) [#/Vol]Ordered By: Roxane Bills on 48-23-8819Igprdqchh (Bld) [#/Vol]1.1 10*3/uL 0.0-0.8K[facility] HealthMonocytes/100 WBC Auto (Bld)Ordered By: Roxane Bills on 26-69-5277Wgmqhlieh/100 WBC (Bld)9.6 %.[facility] HealthNeutrophils Auto (Bld) [#/Vol]Ordered By: Roxane Bills on 08-24-2023 Neutrophils (Bld) [#/Vol]7.1 10*3/uL1.8-7.7FAshtabula General Hospital Neutrophils/100 WBC Auto (Bld)Ordered By: Roxane Bills on 23-61-1113Uympfshbkzp/100 WBC (Bld)62.2 %.[facility] HealthNo Panel InformationOrdered By: Roxane Bills on 82-96-5856Dexjiasxc GFR (CKD-EPI)41.654 mL/MinKettering HealthPharmacy Creatinine Clearance (ChemN/AFAshtabula General HospitalProtein Electrophoresis NoteSee comment.[facility] HealthComment on above:Protein electrophoresis scan will follow via computer,mail, or water softener service supervisor delivery.Performed at: [place] [id number] Director: Jhoan Rich PhD, Phone: [phone] Serum ImmunofixationSee comment.K[facility]tering HealthComment on above:Immunofixation shows IgG monoclonal protein with kappalight chain specificity. PLEASE NOTE: Samplesfrom patients receiving DARZALEX(R)(daratumumab) or SARCLISA(R)(isatuximab-irfc) treatmentcan appear as an IgG kappa and mask a complete response(CR). If this patient is receiving these therapies, thisIFE assay interference can be removed by ordering testnumber [id number]- Immunofixation, Daratumumab-Specific,Serum or [id number]- Immunofixation, Isatuximab-Specific,Serum and submitting a new sample for testing or bycalling the lab to add this test to the current sample.Nucleated erythrocytes [Presence] in Blood by Automated countOrdered By: Roxane Bills on 23-67-4697Yduaaqgab RBC Auto Ql (Bld)0.1 /100{WBC}0-0.5FAshtabula General HospitalPlatelet mean volume Auto (Bld) [Entitic vol]Ordered By: Roxane Bills on 15-75-6120Zfzupwsk mean volume (Bld) [Entitic vol]7.2 fL6.3-10.7FAshtabula General HospitalPlatelets Auto (Bld) [#/Vol]Ordered By: Roxane Bills on 16-73-6101Foulhjdpi (Bld) [#/Vol]320 10*3/sS325-032KidxyvchvKettering HealthPotassium [Moles/volume] in Serum or PlasmaOrdered By: Roxane Bills on 54-50-1315Vdytereah [Moles/Vol]4.2 mmol/L3.5-5.1FAshtabula General HospitalProtein [Mass/volume] in Serum or PlasmaOrdered By: Roxane Bills on 92-45-5506Avujdup [Mass/Vol]7.8 g/dL6.4-8.9[facility] Protein [Mass/Vol]7.6 g/dL6.0-8.5FAshtabula General HospitalRBC Auto (Bld) [#/Vol]Ordered By: Roxane Bills on 67-90-4797RHW (Bld) [#/Vol]4.49 10*6/uL 3.60-5.00[facility] Hospitalerum globulin measurement (mass/volume)Ordered By: Roxane Bills on 92-02-6757Iqygqjca (S) [Mass/Vol]4.0 g/dL 2.2-3.9[facility] Hospitalerum or plasma albumin/globulin mass ratioOrdered By: Roxane Bills on 99-29-0033Tnyejka/Globulin [Mass ratio]1.1 {ratio} [facility] HealthAlbumin/Globulin [Mass ratio]0.9 {ratio}0.7-1.7 [facility] Hospitalerum or plasma alpha 1 globulin measurement by electrophoresis (mass/volume)Ordered By: Roxane Bills on 28-65-4227Xxqup 1 globulin Elph [Mass/Vol]0.2 g/dL0.0-0.4FPomerene Hospitalerum or plasma alpha 2 globulin measurement by electrophoresis (mass/volume)Ordered By: Roxane Bills on 73-13-2483Clqzg 2 globulin Elph [Mass/Vol]0.9 g/dL0.4-1.0[facility] Hospitalerum or plasma anion gap determinationOrdered By: Roxane Bills on 82-26-5912Nlqxd gap [Moles/Vol]13.0 mmol/L6.0-15.0[facility] Hospitalerum or plasma beta globulin measurement by electrophoresis (mass/volume)Ordered By: Roxane Bills on 81-04-3443Metr globulin Elph [Mass/Vol]1.2 g/dL0.7-1.3FPomerene Hospitalerum or plasma gamma globulin measurement by electrophoresis (mass/volume)Ordered By: Roxane Bills on 08-24-2023 Gamma globulin Elph [Mass/Vol]1.7 g/dL0.4-1.8[facility] Sodium [Moles/volume] in Serum or PlasmaOrdered By: Roxane Bills on 08-24-2023 Sodium [Moles/Vol]142 mmol/T285-456DapafkuyhKettering HealthTransferrin [Mass/volume] in Serum or PlasmaOrdered By: Roxane Bills on 51-54-1100Qsqofbcflsf [Mass/Vol]253 mg/hT491-615JqylhcvivKettering HealthUrea nitrogen [Mass/volume] in Serum or PlasmaOrdered By: Roxane Bills on 92-41-0588Yqgg nitrogen [Mass/Vol]21 mg/dL7-25K[facility] HealthWBC Auto (Bld) [#/Vol] Ordered By: Roxane Bills on 93-07-2875JEJ (Bld) [#/Vol]11.3 10*3/uL3.8-11.6 [facility] HealthThyrotropin [Units/volume] in Serum or Plasma Ordered By: Peri Tyson on 86-76-6887CKH Qn4.88 m[IU]/L0.45-5.33K[facility] HealthAlbumin [Mass/volume] in Serum or Plasma by Bromocresol green (BCG) dye binding methoOrdered By: Jeannie Aguilar on 67-66-6554Orgbsdr BCG dye [Mass/Vol]4.0 g/dL3.5-5.7FAshtabula General HospitalCalcium [Mass/volume] in Serum or PlasmaOrdered By: Jeannie Aguilar on 52-97-4721Kfelqpi [Mass/Vol]9.4 mg/dL8.6-10.3FAshtabula General HospitalCarbon dioxide, total [Moles/volume] in Serum or PlasmaOrdered By: Jeannie Aguilar on 07-31-2023 CO2 [Moles/Vol]31.7 mmol/L21.0-31.0[facility] HealthChloride [Moles/volume] in Serum or PlasmaOrdered By: Jeannie Aguilar on 63-50-6526Efxogwhu [Moles/Vol]100 mmol/C88-653RtvssczjuKettering HealthCholesterol [Mass/volume] in Serum or PlasmaOrdered By: Jeannie Aguilar on 07-31-2023 Cholesterol [Mass/Vol]134 mg/oA953-566VzsfhlizuKettering HealthComment on above:Chol less than 200 mg/dl low riskChol 201-239 mg/dl borderline riskChol 240 mg/dl and greater high riskCholesterol in LDL Calc [Mass/Vol]Ordered By: Jeannie Aguilar on 75-30-7073Fxepbkqyoiv in LDL [Mass/Vol]71 mg/dL0-100K[facility] HealthComment on above:LDL ATP III CLASSIFICATIONLDL less than 100 mg/dL OptimalLDL 100-129 mg/dL Near or above wrglphoZBI434-032 mg/dL Borderline highLDL 160-189 mg/dL HighLDL greater than 189 mg/dL Very high Cholesterol in VLDL Calc [Mass/Vol]Ordered By: Jeannie Aguilar on 07-31-2023 Cholesterol in VLDL [Mass/Vol]17 mg/dLKettering Health Creatinine [Mass/volume] in Serum or PlasmaOrdered By: Jeannie Aguilar 41-51-4128Lzaciatpdj [Mass/Vol]1.52 mg/dL0.60-1.20[facility] HealthCreatinine [Mass/volume] in UrineOrdered By: Jeannie Aguilar on 07-31-2023 Creatinine (U) [Mass/Vol]33.0 mg/dLKettering HealthComment on above:No reference range establishedGlucose [Mass/volume] in Serum or Plasma Ordered By: Jeannie Aguilar on 22-15-7679Cwyuwxz [Mass/Vol]154 mg/fS34-439 [facility] HealthComment on above:ADA recommended reference rangeRandom Glucose Reference Range is dependent on time and content of last meal. Glucose of more than 200 mg/dL in a nonstressed, ambulatory subject supports the diagnosisof Diabetes Mellitus.Microalbumin [Mass/volume] in Urine Ordered By: Jeannie Aguilar on 36-79-0647Ddgxhbc DL <= 20 mg/L (U) [Mass/Vol]mg/dL 0.0-1.8[facility] HealthNo Panel InformationOrdered By: Jeannie Aguilar on 33-31-9494Mskldvpoc GFR (CKD-EPI)38.064 mL/MinKettering HealthPharmacy Creatinine Clearance (ChemN/[facility] HospitalPhosphate [Mass/volume] in Serum or PlasmaOrdered By: Jeannie Aguilar on 36-70-8793Clbrqnhzi [Mass/Vol]4.5 mg/dL2.5-4.5FAshtabula General Hospital Potassium [Moles/volume] in Serum or PlasmaOrdered By: Jeannie Aguilar 56-52-6147Fltqxlmwf [Moles/Vol]4.1 mmol/L3.5-5.1FPomerene Hospitalerum or plasma anion gap determinationOrdered By: Jeannie Aguilar 05-76-2940Utzjs gap [Moles/Vol]13.4 mmol/L6.0-15.0[facility] Hospitalerum or plasma high density lipoprotein (HDL) cholesterol measurement Ordered By: Jeannie Aguilar 35-73-4552Ssduflrtnoe in HDL [Mass/Vol]45 mg/dL 23-92K[facility] HealthComment on above:HDL CHOL ATP-III CLASSIFICATION Cardiovascular RiskHDL > or equal to 60 mg/dL LOWHDL < 40 mg/dL HIGHSerum or plasma total cholesterol/high density lipoprotein (HDL) cholesterol mass ratOrdered By: Jeannie Aguilar 63-19-2841Daxjckgrmqf.total/Cholesterol in HDL [Mass ratio]3.0 {ratio}<5.0Grant Hospitalodium [Moles/volume] in Serum or PlasmaOrdered By: Jeannie Aguilar 77-61-2840Mvkmav [Moles/Vol]141 mmol/G481-034MsmwwaorqKettering HealthTriglyceride [Mass/volume] in Serum or PlasmaOrdered By: Jeannie Aguilar on 07-31-2023 Triglyceride [Mass/Vol]89 mg/dL0-149K[facility] HealthComment on above:TRIG ATP III CLASSIFICATIONTRIG less than 150 mg/dL NormalTRIG 150-199 mg/dL Borderline highTRIG 200-500 mg/dL High TRIG greater than 500 mg/dL Very highStandard traceable to the Center for Disease Conrtrol and Prevention (CDC) test method.Urea nitrogen [Mass/volume] in Serum or PlasmaOrdered By: Jeannie Aguilar on 23-01-3870Xguh nitrogen [Mass/Vol]26 mg/dL7-25K[facility]tering HealthUrine microalbumin/creatinine mass ratioOrdered By: Jeannie Aguilar on 13-16-6243Qoddbfb/Creatinine DL <= 20 mg/L (U) [Mass ratio]TNPKettering HealthComment on above:Test not performedVitamin D+Metabolites [Mass/volume] in Serum or PlasmaOrdered By: Jeannie Aguilar on 62-79-9493Fznkrce D+Metabolites [Mass/Vol]57.3 ng/sY83-907ZoytjuurxKettering HealthComment on above:VITAMIN D STATUS 25(OH)VITAMIN D RANGE (ng/mL) Deficient <20 Insufficient 20 to <63Prhwmadhhu51 to 100Reference: [place] SMALLS,Vanessa GONZALEZ, Caesar ASIF, et al. Evaluation,treatment, and prevention of vitamin D deficiency; an Endocrine Society clinical practice guideline. JCEM. 2010; 96 (7):1911-30.Activated partial thromboplastin time (aPTT) in platelet poor plasma by coagulation aOrdered By: Roxane Bills on 22-24-8880gBED Coag (PPP) [Time]23.4 s 25.1-36.5FAshtabula General HospitalComment on above:A hematocrit value greater than 55% may lead to inaccurate results in coagulation testing. Patients having hematocrit values >55% require a special collection tube for coagulation studies. Please contact the laboratory at [phone] for redraw instructions. Basophils Auto (Bld) [#/Vol]Ordered By: Roxane Bills on 34-52-6158Oyvnoeync (Bld) [#/Vol]0.1 10*3/uL0.0-0.2FAshtabula General HospitalBasophils/100 WBC Auto (Bld)Ordered By: Roxane Bills on 46-47-6241Cnhynvspj/100 WBC (Bld)1.3 %.[facility] HealthEosinophils Auto (Bld) [#/Vol]Ordered By: Roxane Bills on 09-01-2598Izuuzyrakde (Bld) [#/Vol]0.9 10*3/uL0.0-0.45K[facility] HealthEosinophils/100 WBC Auto (Bld)Ordered By: Roxane Bills on 02-12-2023 Eosinophils/100 WBC (Bld)7.7 %.[facility] HealthErythrocyte distribution width Auto (RBC) [Ratio]Ordered By: Roxane Bills on 02-12-2023 Erythrocyte distribution width (RBC) [Ratio]14.1 %11.9-15.3FAshtabula General HospitalHematocrit Auto (Bld) [Volume fraction]Ordered By: Roxane Bills on 87-35-7854Jsiexposmg (Bld) [Volume fraction]38.9 %34.0-46.4FAshtabula General HospitalHemoglobin [Mass/volume] in BloodOrdered By: Roxane Bills on 87-86-8004Rbwiizlkzg (Bld) [Mass/Vol]12.8 g/dL11.8-15.4FAshtabula General HospitalINR in Platelet poor plasma by Coagulation assayOrdered By: Roxane Bills on 53-93-0212QNA Coag (PPP) [Relative time]1.0 {INR}[facility] HealthComment on above:INR Therapeutic Range A) Pre- [...] by Automated counOrdered By: Roxane Bills on 13-10-3266PIF corrected for nucl RBC Auto (Bld) [#/Vol]11.7 10*3/uL3.8-11.6 [facility] HealthLymphocytes Auto (Bld) [#/Vol]Ordered By: Roxane Bills on 74-42-5636Ymdhmqlswsw (Bld) [#/Vol]2.8 10*3/uL1.00-4.8K[facility] HealthLymphocytes/100 WBC Auto (Bld)Ordered By: Roxane Bills on 45-44-7832Jvaolcqeifu/100 WBC (Bld)24.2 %.[facility] HospitalH Auto (RBC) [Entitic mass]Ordered By: Roxane Bills on 33-55-4891ITI (RBC) [Entitic mass]30.0 pg24.7-34.3FAshtabula General HospitalMCHC Auto (RBC) [Mass/Vol] Ordered By: Roxane Bills on [id number] (RBC) [Mass/Vol]32.9 g/dL32.0-35.0 [facility] HealthMCV Auto (RBC) [Entitic vol]Ordered By: Roxane Bills on 76-19-8091VFH (RBC) [Entitic vol]91.2 iH72-621ZiqnzytdxKettering HealthMonocytes Auto (Bld) [#/Vol]Ordered By: Roxane Bills on 02-12-2023 Monocytes (Bld) [#/Vol]1.0 10*3/uL0.0-0.8[facility] Monocytes/100 WBC Auto (Bld)Ordered By: Roxane Bills on 73-60-2521Uojawsoho/100 WBC (Bld)9.0 %.[facility] HealthNeutrophils Auto (Bld) [#/Vol] Ordered By: Roxane Bills on 74-20-6858Ogejrfwmtin (Bld) [#/Vol]6.8 10*3/uL1.8-7.7 [facility] HealthNeutrophils/100 WBC Auto (Bld)Ordered By: Roxane Bills on 51-38-0702Yrcjxrjdllm/100 WBC (Bld)57.8 %.[facility] HealthNucleated erythrocytes [Presence] in Blood by Automated countOrdered By: Roxane Bills on 21-10-1563Qjovpweko RBC Auto Ql (Bld)0.1 /100{WBC}0-0.5FAshtabula General HospitalPlatelet mean volume Auto (Bld) [Entitic vol]Ordered By: Roxane Bills on 41-96-9286Ledhovzu mean volume (Bld) [Entitic vol]7.0 fL6.3-10.7 [facility] HealthPlatelets Auto (Bld) [#/Vol]Ordered By: Roxane Bills on 66-76-4715Xxgiojimp (Bld) [#/Vol]334 10*3/uJ227-819RfnllbcegKettering HealthProthrombin time (PT)Ordered By: Roxane Bills on 75-15-4308LX Coag (PPP) [Time]12.4 s9.0-12.9[facility] HealthComment on above:A hematocrit value greater than 55% may lead to inaccurate results in coagulation testing. Patientshaving hematocrit values >55% require a special collection tube for coagulation studies. Please contact the laboratory at [phone] for redraw instructions.RBC Auto (Bld) [#/Vol]Ordered By: Roxane Bills on 70-81-2201ILE (Bld) [#/Vol]4.27 10*6/uL3.60-5.00[facility] HealthWBC Auto (Bld) [#/Vol]Ordered By: Roxane Bills on 75-67-8312CWI (Bld) [#/Vol]11.7 10*3/uL 3.8-11.6FAshtabula General HospitalAlanine aminotransferase [Enzymatic activity/volume] in Serum or PlasmaOrdered By: Roxane Bills on 30-31-7419EYX [Catalytic activity/Vol]47 U/L7-52[facility] HealthAlbumin [Mass/volume] in Serum or Plasma by Bromocresol green (BCG) dye binding metho Ordered By: Roxane Bills on 61-78-6043Zudtigl BCG dye [Mass/Vol]3.7 g/dL3.5-5.7 [facility] HealthAlkaline phosphatase [Enzymatic activity/volume] in Serum or PlasmaOrdered By: Roxane Bills on 60-61-8255PKE [Catalytic activity/Vol]169 U/YRwlx87-453CzvxyecdbKettering Health Aspartate aminotransferase [Enzymatic activity/volume] in Serum or PlasmaOrdered By: Roxane Bills on 33-49-7513BRP [Catalytic activity/Vol]48 U/UFdta77-88BuytixiyvKettering HealthBasophils Auto (Bld) [#/Vol]Ordered By: Roaxne Bills on 54-93-3722Ebqkmiirs (Bld) [#/Vol]0.1 10*3/uL0.0-0.2FAshtabula General HospitalBasophils/100 WBC Auto (Bld)Ordered By: Roxane Bills on 01-22-2023 Basophils/100 WBC (Bld)0.5 %.[facility] HealthBilirubin.total [Mass/volume] in Serum or PlasmaOrdered By: Roxane Bills on 78-10-3600Zrflhipdj [Mass/Vol]0.4 mg/dL0.3-1.0[facility] HealthCalcium [Mass/volume] in Serum or PlasmaOrdered By: Roxane Bills on 70-43-3552Pkmqkua [Mass/Vol]8.6 mg/dL8.6-10.3FAshtabula General HospitalCarbon dioxide, total [Moles/volume] in Serum or PlasmaOrdered By: Roxane Bills on 38-37-6767AJ9 [Moles/Vol]32.1 mmol/LHigh21.0-31.0[facility] HealthChloride [Moles/volume] in Serum or PlasmaOrdered By: Roxane Bills on 53-62-0893Pkgwvtks [Moles/Vol]100 mmol/G14-219PrejdrbviKettering HealthCreatinine [Mass/volume] in Serum or PlasmaOrdered By: Roxane Bills on 49-56-4616Wrkoolvhzc [Mass/Vol]1.37 mg/dLHigh0.60-1.20[facility] HealthEosinophils Auto (Bld) [#/Vol]Ordered By: Roxane Bills on 80-49-5603Qvzdmfieopv (Bld) [#/Vol] 0.5 10*3/uLHigh0.0-0.45[facility] HealthEosinophils/100 WBC Auto (Bld)Ordered By: Roxane Bills on 99-89-4836Emyvnrqftoe/100 WBC (Bld)4.2 %. [facility] HealthErythrocyte distribution width Auto (RBC) [Ratio]Ordered By: Roxane Bills on 04-17-1383Nxsdwpkognp distribution width (RBC) [Ratio]14.2 %11.9-15.3FAshtabula General HospitalFerritin [Mass/volume] in Serum or PlasmaOrdered By: Roxane Bills on 22-27-6653Zurchhbj [Mass/Vol]192.2 ng/mL11.0-306.8[facility] HealthGlobulin Calc (S) [Mass/Vol] Ordered By: Roxane Bills on 16-93-3223Zuvidrxi (S) [Mass/Vol]4.2 g/dLKettering HealthGlucose [Mass/volume] in Serum or PlasmaOrdered By: Roxane Bills on 14-02-7499Rbjldng [Mass/Vol]199 mg/rDMcaj42-329UfciuenwhKettering HealthComment on above:ADA recommended reference rangeRandom Glucose Reference Range is dependent on time and content of last meal. Glucose of more than 200 mg/dL in a nonstressed, ambulatory subject supports the diagnosisof Diabetes Mellitus.Hematocrit Auto (Bld) [Volume fraction]Ordered By: Roxane Bills on 37-51-8324Ajliwwzwef (Bld) [Volume fraction]37.8 %34.0-46.4FAshtabula General HospitalHemoglobin [Mass/volume] in BloodOrdered By: Roxane Bills on 06-70-8547Auloezzblr (Bld) [Mass/Vol]12.3 g/dL11.8-15.4FAshtabula General HospitalIgA [Mass/volume] in Serum or PlasmaOrdered By: Roxane Bills on 79-01-2209PwX [Mass/Vol]669 mg/rIEifi65-592IjrtaplmeKettering HealthIgG [Mass/volume] in Serum or PlasmaOrdered By: Roxane Bills on 76-21-2792LvD [Mass/Vol]1764 mg/nWPcdl287-9966PpactlxwmKettering HealthIgM [Mass/volume] in Serum or PlasmaOrdered By: Roxane Bills on 90-93-9935XnT [Mass/Vol]107 mg/dF17-289JjcrtahytKettering HealthComment on above: Performed at: [facility] [id number] Director: Jhoan Rich PhD, Phone: [phone] light chains.kappa.free [Mass/volume] in SerumOrdered By: Roxane Bills on 01-22-2023 Immunoglobulin light chains.kappa.free (S) [Mass/Vol]237.9 mg/LHigh3.3-19.4 [facility] HealthImmunoglobulin light chains.kappa.free/Immunoglobulin light chains.lambda.free [MassOrdered By: Roxane Bills on 90-35-1027Hylemiesbdjpnc light chains.kappa.free/Immunoglobulin light chains.lambda.free (S) [Mass ratio]6.14Ygqw0.26-1.65[facility] HealthComment on above:Performed at: [employer] [id number] Director: Jhoan Rich PhD, Phone: [phone] Immunoglobulin light chains.lambda.free [Mass/volume] in Serum or PlasmaOrdered By: Roxane Bills on 34-80-8608Agpftuhpntmfge light chains.lambda.free [Mass/Vol] 38.0 mg/LHigh5.7-26.3FAshtabula General HospitalIron [Mass/volume] in Serum or PlasmaOrdered By: Roxane Bills on 48-76-5014Jzpe [Mass/Vol]74 ug/qN76-065 [facility] HealthIron binding capacity [Mass/volume] in Serum or PlasmaOrdered By: Roxane Bills on 15-27-3640Uhub binding capacity [Mass/Vol]311 ug/oV631-463TahiwiahfKettering HealthIron saturation [Mass Fraction] in Serum or PlasmaOrdered By: Roxane Bills on 16-28-1174Enyu saturation [Mass fraction]23.8 %20-50[facility] HealthLeukocytes [#/volume] corrected for nucleated erythrocytes in Blood by Automated counOrdered By: Roxane Bills on 11-08-6818OWM corrected for nucl RBC Auto (Bld) [#/Vol]12.4 10*3/uLHigh 3.8-11.6FAshtabula General HospitalLymphocytes Auto (Bld) [#/Vol]Ordered By: Roxane Bills on 84-65-6157Gdobphiocmm (Bld) [#/Vol]3.2 10*3/uL1.00-4.8[facility] HealthLymphocytes/100 WBC Auto (Bld)Ordered By: Roxane Bills on 23-34-5186Hkrnddozfzs/100 WBC (Bld)25.5 %.[facility]H Auto (RBC) [Entitic mass]Ordered By: Roxane Bills on 48-45-5860ZKU (RBC) [Entitic mass]30.0 pg24.7-34.3FFairfield Medical CenterHC Auto (RBC) [Mass/Vol] Ordered By: Roxane Bills on 19-43-1523EVGP (RBC) [Mass/Vol]32.7 g/dL32.0-35.0 [facility] HealthMCV Auto (RBC) [Entitic vol]Ordered By: Roxane Bills on 68-46-0644PHP (RBC) [Entitic vol]91.9 sL84-444ScoyunywrKettering HealthMonocytes Auto (Bld) [#/Vol]Ordered By: Roxane Bills on 01-22-2023 Monocytes (Bld) [#/Vol]0.7 10*3/uL0.0-0.8[facility] Monocytes/100 WBC Auto (Bld)Ordered By: Roxane Bills on 37-20-5828Veuvowjjg/100 WBC (Bld)5.6 %.[facility] HealthNeutrophils Auto (Bld) [#/Vol] Ordered By: Roxane Bills on 83-77-6801Hbduogvbrtm (Bld) [#/Vol]8.0 10*3/uLHigh 1.8-7.7FAshtabula General HospitalNeutrophils/100 WBC Auto (Bld)Ordered By: Roxane Bills on 77-23-0027Qgptnaxcfnk/100 WBC (Bld)64.2 %.[facility] HealthNo Panel InformationOrdered By: Roxane Bills on 97-60-9684Rwnsovcbg GFR (CKD-EPI)43.118 mL/MinKettering HealthPharmacy Creatinine Clearance (Chem44.97[facility] Hospitalerum ImmunofixationSee commentAbnormal.[facility] HealthComment on above:Immunofixation shows IgG monoclonal protein with kappalight chain specificity. PLEASE NOTE: Samplesfrom patients receiving DARZALEX(R)(daratumumab) or SARCLISA(R)(isatuximab-irfc) treatmentcan appear as an IgG kappa and mask a complete response(CR). If this patient is receiving these therapies, thisIFE assay interference can be removed by ordering testnumber 437471- Immunofixation, Daratumumab-Specific,Serum or 542624- Immunofixation, Isatuximab- Specific,Serum and submitting a new sample for testing or bycalling the lab to add this test to the current sample.Nucleated erythrocytes [Presence] in Blood by Automated countOrdered By: Roxane Bills on 90-43-9068Xkmtvdayb RBC Auto Ql (Bld) 0.0 /100{WBC}0-0.5FAshtabula General HospitalPlatelet mean volume Auto (Bld) [Entitic vol]Ordered By: Roxane Bills on 06-06-2691Vparaedt mean volume (Bld) [Entitic vol]7.0 fL6.3-10.7FAshtabula General HospitalPlatelets Auto (Bld) [#/Vol]Ordered By: Roxane Bills on 50-12-3507Cujqczqiy (Bld) [#/Vol]299 10*3/uL 150-450[facility] HealthPotassium [Moles/volume] in Serum or PlasmaOrdered By: Roxane Bills on 11-86-5650Oasiqfmth [Moles/Vol]4.2 mmol/L3.5-5.1 [facility] HealthProtein [Mass/volume] in Serum or PlasmaOrdered By: Roxane Bills on 31-37-5429Mptewrp [Mass/Vol]7.9 g/dL6.4-8.9[facility] HealthRBC Auto (Bld) [#/Vol]Ordered By: Roxane Bills on 75-76-1176MAW (Bld) [#/Vol]4.11 10*6/uL3.60-5.00[facility] Hospitalerum or plasma albumin/globulin mass ratioOrdered By: Roxane Bills on 73-65-5340Nbnzrwn/Globulin [Mass ratio]0.9 {ratio}[facility] Hospitalerum or plasma anion gap determinationOrdered By: Roxane Bills on 31-70-0016Mhyip gap [Moles/Vol]13.1 mmol/L6.0-15.0[facility] Hospitalodium [Moles/volume] in Serum or PlasmaOrdered By: Roxane Bills on 46-03-5496Jufvld [Moles/Vol]141 mmol/Q775-807 [facility] HealthTransferrin [Mass/volume] in Serum or Plasma Ordered By: Roxane Bills on 04-45-3690Qwkkvlypzdo [Mass/Vol]222 mg/nT537-429 [facility] HealthUrea nitrogen [Mass/volume] in Serum or Plasma Ordered By: Roxane Bills on 03-16-8828Mhzx nitrogen [Mass/Vol]13 mg/dL7-25[facility] HealthWBC Auto (Bld) [#/Vol]Ordered By: Roxane Bills on 08-16-4817DAH (Bld) [#/Vol]12.4 10*3/uLHigh3.8-11.6FAshtabula General HospitalGlucose Glucometer (BldC) [Mass/Vol]Ordered By: Nik Pineda on 92-34-6106Ofmgcvm [Mass/Vol]202 mg/dLKettering HealthComment on above:Random Glucose Reference Range is dependent on time and content of last meal. Glucose of more than 200 mg/dL in a nonstressed, ambulatory subject supports the diagnosis of Diabetes Mellitus.No Panel InformationOrdered By: Nik Pineda on 32-03-9135Jdeiwkb Glucose CommentGlu2: cleaned meterKettering HealthAlbumin [Mass/volume] in Serum or Plasma by Bromocresol green (BCG) dye binding methoOrdered By: Jeannie Aguilar on 85-81-1669Fzfmhnl BCG dye [Mass/Vol]3.8 g/dL3.5-5.7FAshtabula General HospitalCalcium [Mass/volume] in Serum or PlasmaOrdered By: Jeannie Aguilar on 59-68-5633Ghreahp [Mass/Vol]9.2 mg/dL8.6-10.3FAshtabula General HospitalCarbon dioxide, total [Moles/volume] in Serum or PlasmaOrdered By: Jeannie Aguilar on 08-07-2022 CO2 [Moles/Vol]32.6 mmol/L21.0-31.0[facility] HealthChloride [Moles/volume] in Serum or PlasmaOrdered By: Jeannie Aguilar on 76-99-1901Okkkxvjd [Moles/Vol]104 mmol/C05-690JwehzwbdiKettering HealthCholesterol [Mass/volume] in Serum or PlasmaOrdered By: Jeannie Aguilar on 08-07-2022 Cholesterol [Mass/Vol]148 mg/rS056-649PlznhnonvKettering HealthComment on above:Chol less than 200 mg/dl low riskChol 201-239 mg/dl borderline riskChol 240 mg/dl and greater high riskCholesterol in LDL Calc [Mass/Vol]Ordered By: Jeannie Aguilar on 50-74-9350Yzqzgtiavvf in LDL [Mass/Vol]82 mg/dL0-100[facility] HealthComment on above:LDL ATP III CLASSIFICATIONLDL less than 100 mg/dL OptimalLDL 100-129 mg/dL Near or above msbebbrARR460-592 mg/dL Borderline highLDL 160-189 mg/dL HighLDL greater than 189 mg/dL Very high Cholesterol in VLDL Calc [Mass/Vol]Ordered By: Jeannie Aguilar on 08-07-2022 Cholesterol in VLDL [Mass/Vol]15 mg/dLKettering Health Creatinine [Mass/volume] in Serum or PlasmaOrdered By: Jeannie Aguilar 97-24-7169Uvcisramcp [Mass/Vol]1.65 mg/dL0.60-1.20[facility] HealthCreatinine [Mass/volume] in UrineOrdered By: Jeannie Aguilar on 08-07-2022 Creatinine (U) [Mass/Vol]51.0 mg/dL11.0-20.0[facility] Glucose [Mass/volume] in Serum or PlasmaOrdered By: Jeannie Aguilar on 08-07-2022 Glucose [Mass/Vol]71 mg/gB25-702NiekssiwvKettering HealthComment on above:ADA recommended reference rangeRandom Glucose Reference Range is dependent on time and content of last meal. Glucose of more than 200 mg/dL in a nonstressed, ambulatory subject supports the diagnosisof Diabetes Mellitus. Microalbumin [Mass/volume] in UrineOrdered By: Jeannie Aguilar on 08-07-2022 Albumin DL <= 20 mg/L (U) [Mass/Vol]mg/dL0.0-1.8[facility] HealthNo Panel InformationOrdered By: Jeannie Aguilar on 45-27-1559P-Peptide1.6 ng/mL1.1-4.4FAshtabula General HospitalComment on above:C-Peptide reference interval is for fasting patients.Performed at: [facility] [place] [id number] Director: Jhoan Rich PhD, Phone: [phone] GFR (CKD-EPI)34.710 mL/MinKettering Health Pharmacy Creatinine Clearance (ChemN/[facility] HospitalPhosphate [Mass/volume] in Serum or PlasmaOrdered By: Jeannie Aguilar on 08-07-2022 Phosphate [Mass/Vol]4.5 mg/dL3.7-7.2FAshtabula General HospitalPotassium [Moles/volume] in Serum or PlasmaOrdered By: Jeannie Aguilar 08-07-2022 Potassium [Moles/Vol]4.8 mmol/L3.5-5.1FPomerene Hospitalerum or plasma anion gap determinationOrdered By: Jeannie Aguilar 85-32-9910Zokmd gap [Moles/Vol]12.2 mmol/L6.0-15.0[facility] Hospitalerum or plasma high density lipoprotein (HDL) cholesterol measurementOrdered By: Jeannie Aguilar 75-68-7839Ikqesjncyjg in HDL [Mass/Vol]51 mg/hI95-60GwugzmignKettering HealthComment on above:HDL CHOL ATP-III CLASSIFICATION Cardiovascular RiskHDL > or equal to 60 mg/dL LOWHDL < 40 mg/dL HIGHSerum or plasma total cholesterol/high density lipoprotein (HDL) cholesterol mass ratOrdered By: Jeannie Aguilar on 98-67-4504Eepukmjuyow.total/Cholesterol in HDL [Mass ratio]2.9 {ratio}<5.0[facility] Hospitalodium [Moles/volume] in Serum or PlasmaOrdered By: Jeannie Aguilar on 01-80-4366Urysbh [Moles/Vol]144 mmol/L583-218 [facility] HealthTriglyceride [Mass/volume] in Serum or Plasma Ordered By: Jeannie Aguilar on 67-58-9464Awcvbybhdbyf [Mass/Vol]75 mg/dL0-149 [facility] HealthComment on above:TRIG ATP III CLASSIFICATIONTRIG less than 150 mg/dL NormalTRIG 150-199 mg/dL Borderline highTRIG 200-500 mg/dL High TRIG greater than 500 mg/dL Very highStandard traceable to the Center for Disease Conrtrol and Prevention (CDC) test method. Urea nitrogen [Mass/volume] in Serum or PlasmaOrdered By: Jeannie Aguilar on 25-10-4893Scey nitrogen [Mass/Vol]22 mg/dL7-25[facility] Urine microalbumin/creatinine mass ratioOrdered By: Jeannie Aguilar on 08-07-2022 Albumin/Creatinine DL <= 20 mg/L (U) [Mass ratio][facility] HospitalComment on above:Test not performedVitamin D+Metabolites [Mass/volume] in Serum or PlasmaOrdered By: Jeannie Aguilar on 54-53-7815Epsfste D+Metabolites [Mass/Vol]47.6 ng/bH30-884CaqmecbqrKettering HealthComment on above: VITAMIN D STATUS 25(OH)VITAMIN D RANGE (ng/mL) Deficient <20 Insufficient 20 to <48Vfvnvmycfy12 to 100Reference: Milan MF,Vanessa GONZALEZ, Caesar ASIF, et al. Evaluation,treatment, and prevention of vitamin D deficiency; an Endocrine Society clinical practice guideline. JCEM. 2010; 96(7):1911-30.Albumin [Mass/volume] in Serum or PlasmaOrdered By: Raymundo Galicia on 90-56-1866Toticex [Mass/Vol]3.2 g/dL2.9-4.4FAshtabula General HospitalBasophils Auto (Bld) [#/Vol]Ordered By: Raymundo Israelholly on 77-27-3212Gxoqhvusi (Bld) [#/Vol]0.0 10*3/uL 0.0-0.2FAshtabula General HospitalBasophils/100 WBC Auto (Bld)Ordered By: Raymundo Sharmaemerita on 53-88-4038Xoosmemmj/100 WBC (Bld)0.5 %.[facility] HealthEosinophils Auto (Bld) [#/Vol]Ordered By: Raymundo Sharmaemeirta on 76-38-8398Wywfnpatkes (Bld) [#/Vol]0.6 10*3/uL0.0-0.45[facility] HealthEosinophils/100 WBC Auto (Bld)Ordered By: Raymundo Grayson on 07-22-2022 Eosinophils/100 WBC (Bld)6.1 %.[facility] HealthErythrocyte distribution width Auto (RBC) [Ratio]Ordered By: Raymundo Sharmaemerita on 07-22-2022 Erythrocyte distribution width (RBC) [Ratio]14.7 %11.9-15.3FAshtabula General HospitalFerritin [Mass/volume] in Serum or PlasmaOrdered By: Raymundo Sharmaemerita on 50-67-6934Waueverr [Mass/Vol]284.4 ng/mL11.0-306.8[facility] HealthHematocrit Auto (Bld) [Volume fraction]Ordered By: Raymundo Sharmaemerita on 05-04-6869Vboabdqgfr (Bld) [Volume fraction]37.1 %34.0-46.4FAshtabula General HospitalHemoglobin [Mass/volume] in BloodOrdered By: Raymundo Sharmaemerita on 53-02-0036Orjnpbujis (Bld) [Mass/Vol]12.1 g/dL11.8-15.4FAshtabula General HospitalIgA [Mass/volume] in Serum or PlasmaOrdered By: Raymundo Grayson on 42-06-1736XjD [Mass/Vol]656 mg/bQ68-121HppilzdvaKettering HealthIgG [Mass/volume] in Serum or PlasmaOrdered By: Raymundo Grayson on 82-01-7086IlH [Mass/Vol]1303 mg/mX337-3925XbxqdrbqxKettering HealthIgM [Mass/volume] in Serum or PlasmaOrdered By: Raymundo Grayson on 48-08-7965YaU [Mass/Vol]91 mg/dL 26-217K[facility] HealthComment on above:Performed at: [employer] [address] [id number] Director: Jhoan Rich PhD, Phone: [phone] light chains.kappa.free [Mass/volume] in SerumOrdered By: Raymundo Galicia on 76-77-6202Wwahnjunyxybeo light chains.kappa.free (S) [Mass/Vol]120.4 mg/L3.3-19.4FAshtabula General HospitalImmunoglobulin light chains.kappa.free/Immunoglobulin light chains.lambda.free [MassOrdered By: Raymundo Galicia on 43-63-3903Fldikebvaoomvv light chains.kappa.free/Immunoglobulin light chains.lambda.free (S) [Mass ratio] 3.660.26-1.65K[facility] HealthComment on above:Performed at: [employer] [address] [id number] Director: Jhoan Rich PhD, Phone: [phone] light chains.lambda.free [Mass/volume] in Serum or PlasmaOrdered By: Raymundo Galicia on 07-22-2022 Immunoglobulin light chains.lambda.free [Mass/Vol]32.9 mg/L5.7-26.3FAshtabula General HospitalIron [Mass/volume] in Serum or PlasmaOrdered By: Raymundo Galicia on 88-67-6636Howz [Mass/Vol]67 ug/xS10-048ScfegpsonKettering HealthIron binding capacity [Mass/volume] in Serum or PlasmaOrdered By: Raymundo Galicia on 02-50-6396Yddi binding capacity [Mass/Vol]290 ug/jB496-880PzbqufwwkKettering HealthIron saturation [Mass Fraction] in Serum or PlasmaOrdered By: Raymundo Galicia on 96-08-3251Ceyd saturation [Mass fraction]23.1 %20-50 [facility] HealthLaboratory - Chemistry and Chemistry - challengeOrdered By: Raymundo Grayson on 74-07-8814Weahzgx [Mass/Vol]0.5 g/dLHigh Not ObservedKettering HealthLeukocytes [#/volume] corrected for nucleated erythrocytes in Blood by Automated counOrdered By: Raymundo Galicia on 09-26-6774NHB corrected for nucl RBC Auto (Bld) [#/Vol]10.2 10*3/uL3.8-11.6 [facility] HealthLymphocytes Auto (Bld) [#/Vol]Ordered By: Raymundo Galicia on 58-94-9565Telzyleeekw (Bld) [#/Vol]2.6 10*3/uL1.00-4.8[facility] HealthLymphocytes/100 WBC Auto (Bld)Ordered By: Raymundo Galicia on 00-05-4150Prdidvansmn/100 WBC (Bld)25.2 %.[facility] MCH Auto (RBC) [Entitic mass]Ordered By: Raymundo Galicia on 57-52-7746VQN (RBC) [Entitic mass]29.6 pg24.7-34.3FAshtabula General HospitalMCHC Auto (RBC) [Mass/Vol]Ordered By: Raymundo Galicia on 96-36-6061JRCL (RBC) [Mass/Vol]32.7 g/dL 32.0-35.0[facility] HealthMCV Auto (RBC) [Entitic vol]Ordered By: Raymundo Galicia on 40-42-8188CED (RBC) [Entitic vol]90.4 yY78-150DjxioqupuKettering HealthMonocytes Auto (Bld) [#/Vol]Ordered By: Raymundo Galicia on 17-06-3345Fczbirdtu (Bld) [#/Vol]0.7 10*3/uL0.0-0.8[facility] HealthMonocytes/100 WBC Auto (Bld)Ordered By: Raymundo Galicia on 07-22-2022 Monocytes/100 WBC (Bld)7.0 %.[facility] HealthNeutrophils Auto (Bld) [#/Vol]Ordered By: Raymundo Galicia on 78-07-9574Ierdgwviifd (Bld) [#/Vol]6.2 10*3/uL1.8-7.7FAshtabula General HospitalNeutrophils/100 WBC Auto (Bld) Ordered By: Raymundo Galicia on 98-06-2398Zclcjsklmsx/100 WBC (Bld)61.2 %.[facility] HealthNo Panel InformationOrdered By: Raymundo Galicia on 53-98-6432Dkaehsn Electrophoresis NoteSee comment.[facility] HealthComment on above:Protein electrophoresis scan will follow via computer,mail, or water softener service supervisor delivery.Performed at: [employer] [facility] [id number] Director: Jhoan Rich PhD, Phone: [phone] Serum ImmunofixationSee comment.[facility] HealthComment on above:Immunofixation shows IgG monoclonal protein with kappalight chain specificity. PLEASE NOTE: Samplesfrom patients receiving DARZALEX(R)(daratumumab) or SARCLISA(R)(isatuximab-irfc) treatmentcan appear as an IgG kappa and mask a complete response(CR). If this patient is receiving these therapies, thisIFE assay interference can be removed by ordering testnumber [id number]- Immunofixation, Daratumumab-Specific,Serum or 379473- Immunofixation, Isatuximab-Specific,Serum and submitting a new sample for testing or bycalling the lab to add this test to the current sample.Nucleated erythrocytes [Presence] in Blood by Automated countOrdered By: Raymundo Galicia on 92-00-9051Ebftdmavb RBC Auto Ql (Bld)0.0 /100{WBC}0-0.5FAshtabula General HospitalPlatelet mean volume Auto (Bld) [Entitic vol]Ordered By: Raymundo Galicia on 92-54-5357Anbzmcef mean volume (Bld) [Entitic vol]7.4 fL6.3-10.7 [facility] HealthPlatelets Auto (Bld) [#/Vol]Ordered By: Raymundo Galicia on 00-52-9164Itdptcxbw (Bld) [#/Vol]267 10*3/lI618-981ExdmfysmeKettering HealthProtein [Mass/volume] in Serum or PlasmaOrdered By: Raymundo Grayson on 19-35-3484Gfuhdos [Mass/Vol]7.1 g/dL6.0-8.5FAshtabula General HospitalRBC Auto (Bld) [#/Vol]Ordered By: Raymundo Grayson on 00-53-1145JHH (Bld) [#/Vol]4.10 10*6/uL3.60-5.00[facility] Hospitalerum globulin measurement (mass/volume)Ordered By: Raymnudo Galicia on 07-22-2022 Globulin (S) [Mass/Vol]3.9 g/dL2.2-3.9[facility] Hospitalerum or plasma albumin/globulin mass ratioOrdered By: Raymundo Galicia on 07-22-2022 Albumin/Globulin [Mass ratio]0.8 {ratio}0.7-1.7FAshtabula General Hospital Serum or plasma alpha 1 globulin measurement by electrophoresis (mass/volume) Ordered By: Raymundo Galicia on 98-16-3253Nvkvu 1 globulin Elph [Mass/Vol]0.3 g/dL 0.0-0.4FPomerene Hospitalerum or plasma alpha 2 globulin measurement by electrophoresis (mass/volume)Ordered By: Raymundo Galicia on 15-87-8523Pkujn 2 globulin Elph [Mass/Vol]1.0 g/dL0.4-1.0[facility] Hospitalerum or plasma beta globulin measurement by electrophoresis (mass/volume)Ordered By: Raymundo Galicia on 11-55-0585Lamj globulin Elph [Mass/Vol]1.2 g/dL0.7-1.3FPomerene Hospitalerum or plasma gamma globulin measurement by electrophoresis (mass/volume)Ordered By: Raymundo Galicia on 23-22-8291Zbyuj globulin Elph [Mass/Vol]1.4 g/dL0.4-1.8[facility] HealthTransferrin [Mass/volume] in Serum or PlasmaOrdered By: Raymundo Galicia on 10-65-1876Bieshfivsdc [Mass/Vol]207 mg/tM854-369RpnvvhxukKettering HealthWBC Auto (Bld) [#/Vol]Ordered By: Raymundo Galicia on 81-02-1441PVE (Bld) [#/Vol]10.2 10*3/uL3.8-11.6FAshtabula General HospitalFFD mammogram Breast - bilateral Screeningon [id number] screening mammo BI w/CADMansfield Hospital [facility] Other MM screening mammo BI w/CADHancock County [facility] System [employer] Other MM screening mammo BI w/[id number] [facility] [employer] Other MM screening mammo BI w/[place] [address]Hktbu [employer] Other MM screening mammo BI w/CADMammTelluride Regional [facility] Center [facility] Other MM screening mammo BI w/CADSignEllett Memorial Hospital [facility] Other MM screening mammo BI w/CADPatient: Kelsea Turcios MR#: [id number] [employer] Other MM screening mammo BI w/XMU90Whwzi [employer] Other MM screening mammo BI w/CADDOB: 1960 Acct:[id number] [employer] Other MM screening mammo BI w/CADAge/Sex: 61 / F ADM Date: 05/23/22[place] [facility] Other MM screening mammo BI w/CADLoc: [place] Room: Type: [facility] [employer] Other MM screening mammo BI w/CADAttending Dr: Peri Tyson [facility] Other MM screening mammo BI w/CADCopies to: Peri TysonBoxever DONorth [facility] Other MM screening mammo BI w/CADOrdering Provider: Peri Tyson [facility] [employer] Other MM screening mammo BI w/CADDate of Service: 05/23/22 [facility] [employer] Other MM screening mammo BI w/CADAccession #: ([id number]) MM/MM screening mammo BI w/CAD: Breast cancer screeningNobothwell regional health center [facility] Other MM screening mammo BI w/CADBilateral Screening Full Field digital mammogram with 3-D imaging.[employer] Other MM screening mammo BI w/CADFull field digital CC and MLO imaging performed. CAD utilized.[employer] Other MM screening mammo BI w/CADCOMPARISON: 04/17/2021[place] [employer] Other MM screening mammo BI w/CADHISTORY:ScreeningTrappe [facility] Other MM screening mammo BI w/CADFINDINGS: Scattered fibroglandular densities of the breast parenchyma identified. No developingTrappe [facility] Other MM screening mammo BI w/CADarchitectural distortion, developing focal breast asymmetry or developing malignant calcificationsTrappe [facility] Other MM screening mammo BI w/CADidentified. Scattered benign calcifications identified.[employer] Other MM screening mammo BI w/CADORDER #: [id number] MM/MM screening mammo BI w/CADNobothwell regional health center [facility] Other MM screening mammo BI w/CADIMPRESSION:No mammographic evidence of malignancy. Routine follow-up recommended in one year.[employer] Other MM screening mammo BI w/CADRESULT CODE: 2NNYU [facility] [employer] Other MM screening mammo BI w/CADBenign Findings(s)[employer] Other MM screening mammo BI w/CADDENSITY CODE: 2 (approximately 25-50% glandular)[employer] Other MM screening mammo BI w/CADFOLLOW UP: 1YRNoFinovera Other MM screening mammo BI w/CADTHE FALSE-NEGATIVE RATE OF MAMMOGRAPHY IS APPROXIMATELY 10%.[employer] Other MM screening mammo BI w/CADIMAGING OF A PALPABLE ABNORMALITY MUST BE BASED ON CLINICAL GROUNDS.[employer] Other MM screening mammo BI w/CADPATIENT WAS ENTERED INTO A REMINDER SYSTEM WITH A TARGET DUE DATE FOR THE NEXT MAMMOGRAM.[employer] Other MM screening mammo BI w/CADImpression dictated by: Domenico Brown M.D.05/23/2022 12:04 [facility] Other MM screening mammo BI w/CADDictation Location: [facility] [employer] Other MM screening mammo BI w/CADTranscribed By: PWS 05/23/22 [facility] Other MM screening mammo BI w/CADDictated By: Domenico Brown DO 05/23/22 [facility] ChildrenWondersh[facility] Software Other MM screening mammo BI w/CADSigned By:[employer] Other MM screening mammo BI w/CAD05/23/22 [facility] CenterW[facility] Software Other Albumin [Mass/volume] in Serum or PlasmaOrdered By: Peri Tyson on 86-91-1661Txlyzhf [Mass/Vol]3.4 g/dL3.2-5.5Fire[facility] Regional Medical CenterCholesterol [Mass/volume] in Serum or PlasmaOrdered By: Peri Tyson on 63-09-3854Badiayurahi [Mass/Vol]149 mg/dOQnuzjm027-798 mg/dLKettering HealthComment on above:Chol less than 200 mg/dl low riskChol 201-239 mg/dl borderline riskChol 240 mg/dl and greater high riskCholesterol in LDL Calc [Mass/Vol]Ordered By: Peri Tyson on 38-97-9373Lshpgvqbkwr in LDL [Mass/Vol]85 mg/dL0-100Kettering HealthComment on above:LDL ATP III CLASSIFICATIONLDL less than 100 mg/dL OptimalLDL 100-129 mg/dL Near or above gpufxhtBWK621-657 mg/dL Borderline highLDL 160-189 mg/dL HighLDL greater than 189 mg/dL Very highCholesterol in VLDL Calc [Mass/Vol]Ordered By: Peri Tyson on 29-17-8566Elscqmezqti in VLDL [Mass/Vol]19 mg/dLKettering HealthComprehensive Metabolic Panelon 80-61-8633Zbpftkl [Mass/Vol] 3.304482 g/dLNormal3.2-5.5 g/dLNobothwell regional health center [facility] Other ALT [Catalytic activity/Vol]41 U/UIocwuo32-12 U/LNkindred hospital [facility] Other Bilirubin [Mass/Vol]0.5116896 mg/dLNormal0.3-1.2 mg/dL [employer] Other Calcium [Mass/Vol]9.1077743 mg/dLNormal8.2-10.2 mg/dL [employer] Other CO2 [Moles/Vol]30.98014432 mmol/LHigh22.0-30.0 mmol/L [employer] Other Creatinine [Mass/Vol]1.76122823 mg/dLHigh0.44-1.03 mg/dLNuforce [facility]find Other Potassium [Moles/Vol]4.66733666 mmol/LNormal3.5-5.1 mmol/LNorth [facility] Other Protein [Mass/Vol]7.570346 g/dLNormal6.1-7.9 g/dLNobothwell regional health center [facility] Other Comprehensive Metabolic Ktjsh44Jktmb [facility] Other Comprehensive Metabolic Jzgvu52Snfbb [facility] Other Comprehensive Metabolic Panel4.2 g/dLNuforce [facility] Other Creatinine and Glomerular filtration rate.predicted panel (S/P/Bld)Ordered By: Peri Tyson on 61-45-8335Gqzmvedvyv [Mass/Vol]1.20 mg/dL0.44-1.03K[facility] HealthEstimated glomerular filtration rate (GFR) non- AmericanOrdered By: Peri Tyson on 58-09-8838YLL/1.73 sq M.predicted among non-blacks MDRD (S/P/Bld) [Vol rate/Area]45 mL/MinKettering HealthGlobulin Calc (S) [Mass/Vol]Ordered By: Peri Tyson on 46-34-7495Szfpehje (S) [Mass/Vol]4.2 g/dLKettering HealthLipid Panelon 37-77-6712Mimpffwnlcm in LDL Elph Qn85 mg/dLNormal0-100 mg/dLTrappe [facility] Other Lipid Panel96 mg/gCCmwiix75-534 mg/dLNuforce [facility] Other Lipid Panel19 mg/dLNuforce [facility] Other Microalbumin, Urine (Random)on 91-83-4633Pckyxyp DL <= 20 mg/L (U) [Mass/Vol]0.2689151 mg/dLNormal0.0-1.8 mg/dLNorth [facility] Other No Panel InformationOrdered By: Peri Tyson on 90-86-0774Vuttidbro GFR ()55 mL/MinKettering HealthComment on above:GFR estimated reference range: According to KDOQI guidelines, <60 ml/min/1.73m2 is sufficient todiagnose a patient with chronic kidney disease.Pharmacy Creatinine Clearance (ChemN/[facility] HospitalProtein [Mass/volume] in Serum or PlasmaOrdered By: Peri Tyson on 62-46-3801Bqiyydp [Mass/Vol]7.6 g/dL6.1-7.9[facility] Serum or plasma alanine aminotransferase measurement without P-5'-P (enzymatic activiOrdered By: Peri Tyson on 00-32-1595CVF No additional P-5'-P [Catalytic activity/Vol]41 U/F15-79MlpozkxjzGrant Hospitalerum or plasma albumin/globulin mass ratioOrdered By: Peri Tyson on 05-09-2022 Albumin/Globulin [Mass ratio]0.8 {ratio}Grant Hospitalerum or plasma alkaline phosphatase measurement (enzymatic activity/volume)Ordered By: Peri Tyson on 35-81-2417UUA [Catalytic activity/Vol]137 U/GZjjc42-95 U/L [facility] Hospitalerum or plasma anion gap determinationOrdered By: Peri Tyson on 13-08-4960Nypwb gap [Moles/Vol]13.1 mmol/L6.0-15.0Grant Hospitalerum or plasma aspartate aminotransferase measurement (enzymatic activity/volume)Ordered By: Peri Tyson on 80-15-6509CAQ [Catalytic activity/Vol]49 U/RLusg37-68 U/[facility] - Columbuserum or plasma calcium measurement (mass/volume)Ordered By: Peri Tyson on 29-96-4752Drvbexd [Mass/Vol]9.5 mg/dL8.2-10.2FPomerene Hospitalerum or plasma chloride measurement (moles/volume)Ordered By: Peri Tyson on 05-09-2022 Chloride [Moles/Vol]98 mmol/OKmohqh19-712 mmol/[facility] - Columbuserum or plasma glucose measurement (mass/volume)Ordered By: Peri Tyson on 27-29-6912Frtqwmd [Mass/Vol]186 mg/vSIgeh25-562 mg/dLKettering HealthComment on above:ADA recommended reference rangeRandom Glucose Reference Range is dependent on time and content of last meal. Glucose of more than 200 mg/dL in a nonstressed, ambulatory subject supports the diagnosisof Diabetes Mellitus.Serum or plasma high density lipoprotein (HDL) cholesterol measurementOrdered By: Peri Tyson on 69-34-7741Gnfugtubtfn in HDL [Mass/Vol]45 mg/qFNtaknh82-01 mg/dLKettering HealthComment on above:HDL CHOL ATP-III CLASSIFICATION Cardiovascular RiskHDL > or equal to 60 mg/dL LOWHDL < 40 mg/dL HIGHSerum or plasma potassium measurement (moles/volume)Ordered By: Peri Tyson on 20-06-3971Ffiskbboc [Moles/Vol]4.0 mmol/L3.5-5.1FPomerene Hospitalerum or plasma sodium measurement (moles/volume)Ordered By: Peri Tyson on 43-17-9286Gedinp [Moles/Vol]138 mmol/RQmtxuo670-134 mmol/L [facility] Hospitalerum or plasma total bilirubin measurement (mass/volume)Ordered By: Peri Tyson on 09-36-1589Sfztanaha [Mass/Vol]0.4 mg/dL 0.3-1.2FPomerene Hospitalerum or plasma total carbon dioxide measurement (moles/volume)Ordered By: Peri Tyson on 31-55-2948RU2 [Moles/Vol] 30.9 mmol/L22.0-30.0Grant Hospitalerum or plasma total cholesterol/high density lipoprotein (HDL) cholesterol mass ratOrdered By: Peri Tyson on 58-33-9477Ibzmomiyzbu.total/Cholesterol in HDL [Mass ratio]3.3 {ratio}<5.0Grant Hospitalerum or plasma urea nitrogen measurement (mass/volume)Ordered By: Peri Tyson on 29-77-4995Fhdl nitrogen [Mass/Vol]11 mg/dLNormal9-23 mg/dLKettering HealthTSH DL <= 0.005 mIU/L QnOrdered By: Peri Tyson on 47-89-8366NDR Qn2.51 m[IU]/L0.45-5.33 [facility] HealthThyroid Stim Hormone w/Rflxon 57-53-4844Mzmcgiv Stim Hormone w/Rflx2.51 u[iU]/mLNormal0.45-5.33 u[iU]/mLNNYU [facility] [employer] Other Triglyceride [Mass/volume] in Serum or PlasmaOrdered By: Peri Tyson on 79-01-5931Rcfproyjwjrp [Mass/Vol]96 mg/kF96-479XbazxycasKettering HealthComment on above:TRIG ATP III CLASSIFICATIONTRIG less than 150 mg/dL NormalTRIG 150-199 mg/dL Borderline highTRIG 200-500 mg/dL High TRIG greater than 500 mg/dL Very highStandard traceable to the Center for Disease Conrtrol and Prevention (CDC) test method.Urine microalbumin measurement with detection limit of 20 mg/L or less (mass/volume)Ordered By: Peri Tyson on 01-68-2777Azagcmz DL <= 20 mg/L (U) [Mass/Vol]0.6 mg/dL0.0-1.8K[facility] HealthA1C HEMOGLOBINon 60-21-2351KmV1r (Bld) [Mass fraction]7.6 %[employer] Other HbA1c (Bld) [Mass fraction]on 82-90-1451O4Z HEMOGLOBIN [facility] [employer] Other Albumin [Mass/volume] in Serum or PlasmaOrdered By: Roxane Bills on 29-53-7055Qekmslm [Mass/Vol]3.2 g/dL3.2-5.5FAshtabula General HospitalAlbumin [Mass/Vol]3.4 g/dL2.9-4.4FAshtabula General Hospital Basophils Auto (Bld) [#/Vol]Ordered By: Roxane Bills on 65-02-0290Ltwvexdlx (Bld) [#/Vol]0.1 10*3/uL0.0-0.2FAshtabula General HospitalBasophils/100 WBC Auto (Bld)Ordered By: Roxane Bills on 52-66-7312Cdhudguwm/100 WBC (Bld)0.5 %.[facility]tering HealthCT biopsyOrdered By: Roxane Bills on 89-23-2453Tcuqftrieqi [Mass/Vol]247 mg/vW079-217YirsgjrunKettering HealthCreatinine and Glomerular filtration rate.predicted panel (S/P/Bld)Ordered By: Roxane Bills on 33-36-4806Zhzuejfjow [Mass/Vol]1.26 mg/dL0.44-1.03K[facility] HealthEosinophils Auto (Bld) [#/Vol]Ordered By: Roxane Bills on 04-17-2022 Eosinophils (Bld) [#/Vol]0.6 10*3/uL0.0-0.45[facility] Eosinophils/100 WBC Auto (Bld)Ordered By: Roxane Bills on 03-70-6713Zebcxsvlnah/100 WBC (Bld)5.9 %.[facility] HealthErythrocyte distribution width Auto (RBC) [Ratio]Ordered By: Roxane Bills on 14-50-6026Mopqyyyhwlv distribution width (RBC) [Ratio]15.7 %11.9-15.3FAshtabula General HospitalEstimated glomerular filtration rate (GFR) non- AmericanOrdered By: Roxane Bills on 58-59-1187MZL/1.73 sq M.predicted among non-blacks MDRD (S/P/Bld) [Vol rate/Area]43 mL/MinKettering HealthGFR/1.73 sq M.predicted among non-blacks MDRD (S/P/Bld) [Vol rate/Area]Estimated glomerular filtration rate (GFR) non- AmericanKettering HealthFerritin [Mass/volume] in Serum or PlasmaOrdered By: Roxane Bills on 13-09-0685Irdeonbj [Mass/Vol]72.6 ng/oJ06-136.8K[facility]tering HealthGlobulin Calc (S) [Mass/Vol]Ordered By: Roxane Bills on 04-57-8033Mhbnqiil (S) [Mass/Vol]3.8 g/dL [facility]tering HealthHematocrit Auto (Bld) [Volume fraction]Ordered By: Roxane Sanju on 92-65-2316Qolzrayjrm (Bld) [Volume fraction]35.4 %34.0-46.4 [facility] HealthHemoglobin [Mass/volume] in BloodOrdered By: Roxane Sanju on 69-71-8376Vwnzcoiylj (Bld) [Mass/Vol]11.2 g/dL11.8-15.4FAshtabula General HospitalIgA [Mass/volume] in Serum or PlasmaOrdered By: Roxane Sanju on 82-89-7090IeJ [Mass/Vol]625 mg/xN83-800IqcycsdcbKettering HealthIgG [Mass/volume] in Serum or PlasmaOrdered By: Roxane Sanju on 25-95-1520WzS [Mass/Vol]1443 mg/cP393-7421FzdxxfkxtKettering HealthIgM [Mass/volume] in Serum or PlasmaOrdered By: Roxane Bills on 44-82-0981AwL [Mass/Vol]98 mg/dL 26-217Kettering HealthComment on above:Performed at: [employer] Director: Jhoan Rich PhD, Phone: [phone] light chains.kappa.free [Mass/volume] in SerumOrdered By: Roxane Bills on 63-44-3178Ntblzobzakeknh light chains.kappa.free (S) [Mass/Vol]162.6 mg/L3.3-19.4FAshtabula General HospitalImmunoglobulin light chains.kappa.free/Immunoglobulin light chains.lambda.free [MassOrdered By: Roxane Bills on 29-76-0322Wmjrvtflwnsykl light chains.kappa.free/Immunoglobulin light chains.lambda.free (S) [Mass ratio]3.65 0.26-1.65K[facility]tering HealthComment on above:Performed at: [employer] [id number] Director: Jhona Rich PhD, Phone: [phone] light chains.lambda.free [Mass/volume] in Serum or PlasmaOrdered By: Roxane Bills on 04-17-2022 Immunoglobulin light chains.lambda.free [Mass/Vol]44.5 mg/L5.7-26.3FAshtabula General HospitalIron [Mass/volume] in Serum or PlasmaOrdered By: Roxane Bills on 70-31-5766Rdrf [Mass/Vol]53 ug/eB58-801VcxryluexKettering HealthIron binding capacity [Mass/volume] in Serum or PlasmaOrdered By: Roxane Bills on 46-44-6202Bqix binding capacity [Mass/Vol]346 ug/mZ429-210YoquzvzfmKettering HealthIron saturation [Mass Fraction] in Serum or PlasmaOrdered By: Roxane Bills on 97-81-9956Mthv saturation [Mass fraction]15.3 %20-50K[facility] HealthLaboratory - Chemistry and Chemistry - challengeOrdered By: Roxane Bills on 55-28-0409Rwhtkyp [Mass/Vol]0.4 g/dLNot ObservedKettering HealthLeukocytes [#/volume] corrected for nucleated erythrocytes in Blood by Automated counOrdered By: Roxane Bills on 83-30-4531UPD corrected for nucl RBC Auto (Bld) [#/Vol]10.8 10*3/uL3.8-11.6FAshtabula General HospitalLymphocytes Auto (Bld) [#/Vol]Ordered By: Roxane Bills on 04-17-2022 Lymphocytes (Bld) [#/Vol]2.6 10*3/uL1.00-4.8[facility] Lymphocytes/100 WBC Auto (Bld)Ordered By: Roxane Bills on 88-27-1215Aywoqiiisvt/100 WBC (Bld)24.5 %.[facility] Auto (RBC) [Entitic mass] Ordered By: Roxane Bills on 94-19-7576FOV (RBC) [Entitic mass]27.9 pg24.7-34.3 [facility]HC Auto (RBC) [Mass/Vol]Ordered By: Roxane Bills on 67-88-3903FFMH (RBC) [Mass/Vol]31.6 g/dL32.0-35.0K[facility] HealthMCV Auto (RBC) [Entitic vol]Ordered By: Roxane Bills on 95-66-4480VLG (RBC) [Entitic vol]88.1 yW43-684FsddtqfpcKettering HealthMonocytes Auto (Bld) [#/Vol]Ordered By: Roxane Bills on 20-26-5594Yctxlhwek (Bld) [#/Vol]0.8 10*3/uL 0.0-0.8K[facility] HealthMonocytes/100 WBC Auto (Bld)Ordered By: Roxane Bills on 74-44-8720Kbsdiidvo/100 WBC (Bld)7.9 %.[facility] HealthNeutrophils Auto (Bld) [#/Vol]Ordered By: Roxane Bills on 04-17-2022 Neutrophils (Bld) [#/Vol]6.6 10*3/uL1.8-7.7FAshtabula General Hospital Neutrophils/100 WBC Auto (Bld)Ordered By: Roxane Bills on 73-26-4908Monxpcoqzzz/100 WBC (Bld)61.2 %.[facility] HealthNo Panel InformationOrdered By: Roxane Bills on 47-50-8869Tkwwfgoxw GFR ()52 mL/MinKettering HealthComment on above:GFR estimated reference range: According to KDOQI guidelines, <60 ml/min/1.73m2 is sufficient todiagnose a patient with chronic kidney disease.Pharmacy Creatinine Clearance (Chem51.63K[facility] HealthProtein Electrophoresis NoteSee comment.[facility]tering HealthComment on above:Protein electrophoresis scan will follow via computer,mail, or water softener service supervisor delivery.Performed at: [facility] [employer] [id number] Director: Jhoan Rich PhD, Phone: [phone] mL/MinKettering HealthNucleated erythrocytes [Presence] in Blood by Automated countOrdered By: Roxane Bills on 04-17-2022 Nucleated RBC Auto Ql (Bld)0.2 /100{WBC}0-0.5FAshtabula General Hospital Platelet mean volume Auto (Bld) [Entitic vol]Ordered By: Roxane Bills on 04-17-2022 Platelet mean volume (Bld) [Entitic vol]7.6 fL6.3-10.7FAshtabula General HospitalPlatelets Auto (Bld) [#/Vol]Ordered By: Roxane Bills on 39-69-7467Bnlxejxma (Bld) [#/Vol]273 10*3/qW402-150TmnuwiyqjKettering HealthProtein [Mass/volume] in Serum or PlasmaOrdered By: Roxane Bills on 24-36-6366Vhoqtlr [Mass/Vol]7.0 g/dL6.1-7.9[facility] HealthProtein [Mass/Vol]7.3 g/dL6.0-8.5FAshtabula General HospitalRBC Auto (Bld) [#/Vol]Ordered By: Roxane Bills on 24-02-4765ZJU (Bld) [#/Vol]4.02 10*6/uL3.60-5.00Grant Hospitalerum globulin measurement (mass/volume)Ordered By: Roxane Bills on 93-07-5293Bhzeugnm (S) [Mass/Vol]3.9 g/dL2.2-3.9Grant Hospitalerum or plasma alanine aminotransferase measurement without P-5'-P (enzymatic activiOrdered By: Roxane Bills on 62-00-2940FPB No additional P-5'-P [Catalytic activity/Vol]22 U/G03-31AlvbddiblGrant Hospitalerum or plasma albumin/globulin mass ratioOrdered By: Roxane Bills on 04-17-2022 Albumin/Globulin [Mass ratio]0.8 {ratio}[facility] Albumin/Globulin [Mass ratio]0.9 {ratio}0.7-1.7FAshtabula General Hospital Serum or plasma alkaline phosphatase measurement (enzymatic activity/volume) Ordered By: Roxane Bills on 85-23-7255RPK [Catalytic activity/Vol]121 U/L32-92 [facility] Hospitalerum or plasma alpha 1 globulin measurement by electrophoresis (mass/volume)Ordered By: Roxane Bills on 52-44-9482Uttbf 1 globulin Elph [Mass/Vol]0.3 g/dL0.0-0.4FPomerene Hospitalerum or plasma alpha 2 globulin measurement by electrophoresis (mass/volume)Ordered By: Roxane Bills on 20-29-8197Gyehb 2 globulin Elph [Mass/Vol]0.9 g/dL0.4-1.0[facility] Hospitalerum or plasma anion gap determinationOrdered By: Roxane Bills on 35-99-1389Uczap gap [Moles/Vol]12.8 mmol/L6.0-15.0[facility] Hospitalerum or plasma aspartate aminotransferase measurement (enzymatic activity/volume)Ordered By: Roxane Bills on 23-84-9006RLS [Catalytic activity/Vol] 23 U/J36-44TtrvcgzvnGrant Hospitalerum or plasma beta globulin measurement by electrophoresis (mass/volume)Ordered By: Roxane Bills on 04-17-2022 Beta globulin Elph [Mass/Vol]1.4 g/dL0.7-1.3FAshtabula General Hospital Serum or plasma calcium measurement (mass/volume)Ordered By: Roxane Bills on 12-88-6082Ziifadu [Mass/Vol]9.1 mg/dL8.2-10.2FAshtabula General Hospital Serum or plasma chloride measurement (moles/volume)Ordered By: Roxane Bills on 41-32-1917Qjqivygx [Moles/Vol]98 mmol/Y91-941RrcyrqvdnKettering Health Serum or plasma gamma globulin measurement by electrophoresis (mass/volume) Ordered By: Roxane Bills on 96-92-1185Jjyzp globulin Elph [Mass/Vol]1.3 g/dL0.4-1.8 [facility] Hospitalerum or plasma glucose measurement (mass/volume)Ordered By: Roxane Bills on 47-71-4496Zccifcv [Mass/Vol]269 mg/dL 70-100K[facility] HealthComment on above:ADA recommended reference rangeRandom Glucose Reference Range is dependent on time and content of last meal. Glucose of more than 200 mg/dL in a nonstressed, ambulatory subject supports the diagnosisof Diabetes Mellitus.Serum or plasma potassium measurement (moles/volume)Ordered By: Roxane Bills on 90-04-3386Rfdhktbpo [Moles/Vol]3.5 mmol/L3.5-5.1FPomerene Hospitalerum or plasma sodium measurement (moles/volume)Ordered By: Roxane Bills on 45-28-4539Ebymzz [Moles/Vol]138 mmol/C776-178DaaacfmpvGrant Hospitalerum or plasma total bilirubin measurement (mass/volume)Ordered By: Roxane Bills on 04-17-2022 Bilirubin [Mass/Vol]0.3 mg/dL0.3-1.2FPomerene Hospitalerum or plasma total carbon dioxide measurement (moles/volume)Ordered By: Roxane Bills on 39-37-4805QC5 [Moles/Vol]30.7 mmol/L22.0-30.0[facility] Serum or plasma urea nitrogen measurement (mass/volume)Ordered By: Roxane Bills on 53-02-5608Agzk nitrogen [Mass/Vol]17 mg/dL9-23[facility] WBC Auto (Bld) [#/Vol]Ordered By: Roxane Bills on 63-16-1203NAE (Bld) [#/Vol]10.8 10*3/uL3.8-11.6FAshtabula General HospitalUrine culture routineOrdered By: Peri Tyson on 91-52-0681Onuwybru identified Cx Nom (U)Strep. agalactiae Grp B Kettering HealthA1C HEMOGLOBINon 50-54-2872RbC5z (Bld) [Mass fraction]7.0 %[employer] [facility] [employer] Other Urinalysis - AUTOMATEDon 06-23-0985Jnuxzeguhe (U) cloudyNkindred hospital [employer] Other Bilirubin Ql (U)NegativeNuforce [employer] Other Color (U)yellowNuforce [employer] Other Glucose Ql (U)500[place] [employer] Other Hemoglobin Ql (U)[facility] CenterNu[facility] Other Ketones Ql (U)[facility] CenterNu[facility] Other Leukocyte esterase Test strip Ql (U)smallNuforce [employer] Other Nitrite Ql (U)[facility] CenterNu[facility] Other pH (U)5.5 [pH][employer] Other Protein Ql (U)NegativeNobothwell regional health center [employer] Other Specific gravity (U) [Rel density]1.010Nobothwell regional health center [employer] Other Urobilinogen (U) [Mass/Vol]0.2 mg/dLTrappe [facility] Other Urinalysis - AUTOMATEDNobothwell regional health center [employer] Other Urine culture routineOrdered By: Peri Tyson on 60-11-1963Ypbtjkui identified Cx Nom (U)Strep. agalactiae Grp [facility] CampusUrine culture routineOrdered By: Peri Tyson on 39-80-8772Ssdexiaw identified Cx Nom (U)Strep. agalactiae [facility] Health CenterDrugs identified in UrineOrdered By: Peri Tyson on 13-31-2574Qtujj identified Nom (U)[facility]uscarawas HospitalComment on above: TOXASSURE COMP DRUG ANALYSIS,UR= Test [...] clinical consultation, please call . Performed at: [employer] [address] [id number] Director: Tomasa Alegria [facility], Phone: [phone] - AUTOMATEDon 56-55-2240Hbzqjukfxv (U)clearNoWondershare Software Other Bilirubin Ql (U)NegativeLogicSource Other Color (U)yellowNortFinovera Other Glucose Ql (U)1000NoWondershare Software Other Hemoglobin Ql (U)NegativeLogicSource Other Ketones Ql (U)NegativeLogicSource Other Leukocyte esterase Test strip Ql (U)traceNoWondershare Software Other Nitrite Ql (U)NegativeWondershare Software Other pH (U)7.0 [pH][employer] Other Protein Ql (U)NegativeWondershare Software Other Specific gravity (U) [Rel density]1.010Nobothwell regional health center [employer] Other Urobilinogen (U) [Mass/Vol]0.2 mg/dLWondershare Software Other Urinalysis - AUTOMATEDWondershare Software Other CT biopsyOrdered By: Roxane Bills on 10-23-2021 Transferrin [Mass/Vol]290 mg/qI463-887MwjzyafpyKettering HealthFerritin [Mass/volume] in Serum or PlasmaOrdered By: Roxane Bills on 12-65-6377Aheiuxnv [Mass/Vol]76.6 ng/iT69-453.8K[facility] HealthIron [Mass/volume] in Serum or PlasmaOrdered By: Roxane Bills on 42-62-1283Zeja [Mass/Vol]64 ug/dL 40-150K[facility]tering HealthIron binding capacity [Mass/volume] in Serum or PlasmaOrdered By: Roxane Bills on 93-32-8371Lhaq binding capacity [Mass/Vol]406 ug/dE212-953IapqaejplKettering HealthIron saturation [Mass Fraction] in Serum or PlasmaOrdered By: Roxane Bills on 26-30-0144Grzf saturation [Mass fraction]15.0 %20-50K[facility] HealthA1C HEMOGLOBINon 88-86-8674EdJ7m (Bld) [Mass fraction]7.2 %[employer] Other basic Metabolic PanelOrdered By: Laureen Moreno on 21-03-5074Pjpxadib [Moles/Vol]100 mmol/H25-015ThunfjhrsKettering HealthGlucose [Mass/Vol]268 mg/zI54-135ZaqgzxzcaKettering HealthComment on above:ADA recommended reference range Random Glucose Reference Range is dependent on time and content of last meal. Glucose of more than 200 mg/dL in a nonstressed, ambulatory subject supports the diagnosis of Diabetes Mellitus.Sodium [Moles/Vol]139 mmol/D132-077CiskvuvtfKettering HealthUrea nitrogen [Mass/Vol]18 mg/dL9-23K[facility] HealthBasic Metabolic Panelon 93-31-0180Zulvnkj [Mass/Vol]9.1184215 mg/dLNormal8.2-10.2 mg/dLNuforce [facility] Other cO2 [Moles/Vol]29.08791075 mmol/IIchsuf79.0-30.0 mmol/LNHiveLive Other creatinine [Mass/Vol]1.25614783 mg/dLHigh0.44-1.03 mg/dLWondershare Software Other potassium [Moles/Vol]4.91033777 mmol/LNormal3.5-5.1 mmol/LNHiveLive Other basic Metabolic Ehmjy83Vfgou [employer] Other creatinine and Glomerular filtration rate.predicted panel (S/P/Bld)Ordered By: Laureen Moreno on 76-50-0389Mdxggdcyyl [Mass/Vol]1.57 mg/dL0.44-1.03K[facility] HealthEstimated glomerular filtration rate (GFR) non- AmericanOrdered By: Laureen Moreno on 99-05-4990WQA/1.73 sq M.predicted among non-blacks MDRD (S/P/Bld) [Vol rate/Area]33 mL/MinKettering HealthHbA1c (Bld) [Mass fraction]on 85-23-7358N4R HEMOGLOBINNobothwell regional health center [employer] Other no Panel InformationOrdered By: Laureen Moreno on 65-23-7440Kuuhrgmwe GFR ()40 mL/MinKettering HealthComment on above:GFR estimated reference range: According to KDOQI guidelines, <60 ml/min/1.73m2 is sufficient todiagnose a patient with chronic kidney disease.Pharmacy Creatinine Clearance (ChemN/[facility] Medical Centererum or plasma calcium measurement (mass/volume)Ordered By: Laureen Moreno on [id number] [Mass/Vol]9.6 mg/dL8.2-10.2FPomerene Hospitalerum or plasma potassium measurement (moles/volume)Ordered By: Laureen Moreno on [id number] [Moles/Vol]4.7 mmol/L3.5-5.1 [facility] Hospitalerum or plasma total carbon dioxide measurement (moles/volume)Ordered By: Laureen Moreno on [id number] [Moles/Vol]29.0 mmol/L22.0-30.0[facility] HealthActivated partial thromboplastin time (aPTT) in platelet poor plasma by coagulation a Ordered By: Roxane Bills on [id number] Coag (PPP) [Time]33.0 s25.1-36.5 [facility] HealthBasophils Auto (Bld) [#/Vol]Ordered By: Roxane Bills on 52-28-0964Nlsjtehgx (Bld) [#/Vol]0.1 10*3/uL0.0-0.2FAshtabula General HospitalBasophils/100 WBC Auto (Bld)Ordered By: Roxane Bills on 09-26-2021 Basophils/100 WBC (Bld)0.5 %.[facility] HealthBlood hemoglobin measurement (mass/volume)Ordered By: Roxane Bills on 31-67-2479Ekemyctuad (Bld) [Mass/Vol]11.4 g/dL11.8-15.4FAshtabula General HospitalBlood leukocytes automated count (number/volume)Ordered By: Roxane Bills on 68-88-3937ZPB (Bld) [#/Vol]11.1 10*3/uL4.5-11.0[facility] HealthEosinophils Auto (Bld) [#/Vol]Ordered By: Roxane Bills on 76-70-2824Uhjqathxhhe (Bld) [#/Vol]0.8 10*3/uL0.0-0.45[facility] HealthEosinophils/100 WBC Auto (Bld) Ordered By: Roxane Bills on 89-71-3782Mllbqhibixz/100 WBC (Bld)7.7 %.[facility] HealthErythrocyte distribution width Auto (RBC) [Ratio]Ordered By: Roxane Bills on 22-53-0607Ywgctlusagp distribution width (RBC) [Ratio]14.5 % 11.9-15.3FAshtabula General HospitalHematocrit Auto (Bld) [Volume fraction]Ordered By: Roxane Bills on 82-09-1996Tsjpynvave (Bld) [Volume fraction] 35.3 %34.0-46.4FAshtabula General HospitalLaboratory - CoagulationOrdered By: Roxane Bills on 26-39-7234SP Coag (PPP) [Time]13.9 s9.0-12.9[facility] HealthLaboratory - Hematology and Cell countsOrdered By: Roxane Bills on 05-74-8584Hxnqjxrwp RBC/100 WBC (Bld) [Ratio]0.1 %0-0.5FAshtabula General HospitalLymphocytes Auto (Bld) [#/Vol]Ordered By: Roxane Bills on 09-26-2021 Lymphocytes (Bld) [#/Vol]2.4 10*3/uL1.00-4.8[facility] Lymphocytes/100 WBC Auto (Bld)Ordered By: Roxane Bills on 84-76-9341Lwarfzxwbtp/100 WBC (Bld)21.6 %.[facility] Auto (RBC) [Entitic mass] Ordered By: Roxane Bills on 55-87-6750MPD (RBC) [Entitic mass]28.3 pg24.7-34.3 [facility] HealthMCHC Auto (RBC) [Mass/Vol]Ordered By: Roxane Bills on 67-93-8872SVTL (RBC) [Mass/Vol]32.1 g/dL32.0-35.0[facility] HealthMCV Auto (RBC) [Entitic vol]Ordered By: Roxane Bills on 28-56-7148HIF (RBC) [Entitic vol]88.0 dU00-558OjyktniwdKettering HealthMonocytes Auto (Bld) [#/Vol]Ordered By: Roxane Bills on 89-71-3809Rfzxevdnk (Bld) [#/Vol]0.9 10*3/uL 0.0-0.8[facility] HealthMonocytes/100 WBC Auto (Bld)Ordered By: Roxane Bills on 09-73-7180Mbztfzzpv/100 WBC (Bld)7.8 %.[facility] HealthNeutrophils Auto (Bld) [#/Vol]Ordered By: Roxane Bills on 09-26-2021 Neutrophils (Bld) [#/Vol]6.9 10*3/uL1.8-7.7FAshtabula General Hospital Neutrophils/100 WBC Auto (Bld)Ordered By: Roxane Bills on 08-78-0783Dcbozdldeum/100 WBC (Bld)62.4 %.[facility] HealthPlatelet mean volume Auto (Bld) [Entitic vol]Ordered By: Roxane Bills on 05-87-1890Drlmdxsx mean volume (Bld) [Entitic vol]7.5 fL6.3-10.7FAshtabula General HospitalPlatelet poor plasma international normalized ratio (INR) by coagulation assay (relatOrdered By: Roxane Bills on 30-19-6541BVL Coag (PPP) [Relative time]1.2 {INR}[facility] HealthComment on above:INR Therapeutic Range A) Pre- [...] Auto (Bld) [#/Vol]Ordered By: Roxane Bills on 00-79-6868Pocvbpmtm (Bld) [#/Vol]302 10*3/uL 150-450[facility] HealthRBC Auto (Bld) [#/Vol]Ordered By: Roxane Bills on 18-90-5499IKB (Bld) [#/Vol]4.01 10*6/uL3.60-5.00[facility] HealthAlbumin/Protein.total in 24 hour Urine by ElectrophoresisOrdered By: Roxane Bills on 36-52-4553Ptllxey Elph (24H U) [Mass fraction]27.8 %.[facility] HealthAlbumin Elph (24H U) [Mass fraction]Albumin/Protein.total in 24 hour Urine by Electrophoresis.[facility] HealthCreatinine [Mass/volume] in UrineOrdered By: Roxane Bills on 03-05-6687Ebpoztgbof (U) [Mass/Vol]35.9 mg/dLKettering HealthComment on above:No reference range establishedCreatinine (U) [Mass/Vol]Creatinine [Mass/volume] in UrineKettering HealthComment on above:No reference range establishedGamma globulin/Protein.total in 24 hour Urine by Electrophoresis Ordered By: Roxane Bills on 05-72-5675Xjamv globulin Elph (24H U) [Mass fraction] 24.3 %.[facility] HealthGamma globulin Elph (24H U) [Mass fraction]Gamma globulin/Protein.total in 24 hour Urine by Electrophoresis. [facility] HealthImmunofixation for UrineOrdered By: Roxane Bills on 60-42-8241Xpigbrybetetur Immunofixation (U) [Interp]See comment.[facility] HealthComment on above:No monoclonality detected. Performed at: [facility] [id number] Loom Doffer: Jhoan Rich PhD, Phone: [phone] monoclonality detected.Performed at: [facility] [id number] Director: Jhoan Rich PhD, Phone: [phone] Immunofixation (U) [Interp]Immunofixation for Urine.[facility] HealthComment on above:No monoclonality detected.Performed at: [facility] [place] [id number] Director: Jhoan Rich PhD, Phone: [phone] light chains.kappa.free [Mass/volume] in Serum Ordered By: Roxane Bills on 64-15-0371Ijejwijsahukrm light chains.kappa.free (S) [Mass/Vol]73.6 mg/L3.3-19.4FAshtabula General HospitalImmunoglobulin light chains.kappa.free/Immunoglobulin light chains.lambda.free [MassOrdered By: Roxane Bills on 86-52-5191Bkntuokqkwxith light chains.kappa.free/Immunoglobulin light chains.lambda.free (S) [Mass ratio]2.520.26-1.65[facility] HealthComment on above:Performed at: [address] [id number] [place]oom Doffer: Jhoan Rich PhD, Phone: [phone] light chains.lambda.free [Mass/volume] in Serum or PlasmaOrdered By: Roxane Bills on 99-35-8962Tbjvljcurytnnl light chains.lambda.free [Mass/Vol]29.2 mg/L5.7-26.3 [facility] HealthNo Panel InformationOrdered By: Roxane Bills on 18-93-6982Zqadi Random Prot Electrophor NoteSee comment.[facility] HealthComment on above:Protein electrophoresis scan will follow via computer, mail, or water softener service supervisor delivery. Protein electrophoresis scan will follow via computer, mail, or water softener service supervisor delivery. Performed at: [facility] [id number] [place] Doffer: Jhoan Rich PhD, Phone: [phone] --- 08/20/21 1409 --- Please Note: previously reported as: Protein electrophoresis scan will follow via computer, mail, or water softener service supervisor delivery.Protein electrophoresis scan will follow via computer,mail, or water softener service supervisor delivery. Protein electrophoresis scan will follow via computer,mail, or water softener service supervisor delivery.Performed at: [facility] [id number] Director: Jhoan Rich PhD, Phone: [phone] --- ---Please Note: previously reported as: Protein electrophoresis scan will follow via computer,mail, or water softener service supervisor delivery.See comment.[facility] HealthProtein [Mass/volume] in UrineOrdered By: Roxane Bills on 44-12-7067Jokgixt (U) [Mass/Vol]4.8 mg/dLNot Estab.[facility] HealthProtein (U) [Mass/Vol]Protein [Mass/volume] in UrineNot Estab.[facility] HealthProtein.monoclonal/Protein.total in 24 hour Urine by ElectrophoresisOrdered By: Roxane Bills on 08-16-2021 Protein.monoclonal Elph (24H U) [Mass fraction]Not observed %Not Observed [facility] HealthProtein.monoclonal Elph (24H U) [Mass fraction] Protein.monoclonal/Protein.total in 24 hour Urine by ElectrophoresisNot Observed [facility] Hospitalerum or plasma eqie-0-cefusoaioacyf measurement (mass/volume)Ordered By: Roxane Bills on 92-73-7264Vjgr-2-Microglobulin [Mass/Vol]4.9 ug/mLHigh0.6-2.4FAshtabula General HospitalComment on above: Siemens Immulite 2000 Immunochemiluminometric assay (ICMA) Values obtained with different assay methods or kits cannot be used interchangeably. Results cannot be interpreted as absolute evidence of the presence or absence of malignant disease. Performed at: [facility] [id number] [place] Doffer: Betty Bah MD, Phone: [phone] Immulite 2000 Immunochemiluminometric assay (ICMA)Values obtained with different assay methods or kits cannotbe used interchangeably. Results cannot be interpreted asabsolute evidence of the presence or absence of malignantdisease.Performed at: [facility] [id number] Director: Betty Bah MD, Phone: [phone]-9-Mwfwpbrkjvddq [Mass/Vol]Serum or plasma tnjo-7-eoulpvdsszess measurement (mass/volume)High0.6-2.4FAshtabula General HospitalComment on above:Siemens Immulite 2000 Immunochemiluminometric assay (ICMA)Values obtained with different assay methods or kits cannotbe used interchangeably. Results cannot be interpreted asabsolute evidence of the p resence or absence of malignantdisease.Performed at: [facility] [id number] Director: Betty Bah MD, Phone: [phone] alpha 1 globulin/total protein by electrophoresisOrdered By: Roxane Bills on 18-05-7676Xvhgx 1 globulin Elph (U) [Mass fraction]3.9 %.[facility] HealthAlpha 1 globulin Elph (U) [Mass fraction]Urine alpha 1 globulin/total protein by electrophoresis.[facility] HealthUrine alpha 2 globulin/total protein ratio by electrophoresisOrdered By: Roxane Bills on 15-35-5803Zmcwy 2 globulin Elph (U) [Mass fraction]11.3 %.[facility] HealthAlpha 2 globulin Elph (U) [Mass fraction]Urine alpha 2 globulin/total protein ratio by electrophoresis.[facility] HealthUrine beta globulin measurement by electrophoresis (mass/volume)Ordered By: Roxane Bills on 17-74-4067Moac globulin Elph (U) [Mass/Vol]32.8 %.[facility] HealthBeta globulin Elph (U) [Mass/Vol]Urine beta globulin measurement by electrophoresis (mass/volume).[facility] A1C HEMOGLOBINon 05-65-1069RnG1i (Bld) [Mass fraction]6.7 %[employer] [facility] [employer] Other HbA1c (Bld) [Mass fraction]on 72-24-4798O4L HEMOGLOBIN [employer] [facility] [employer] Other Thyroid Stim Hormone w/Rflxon 51-69-3256Mmuzdte Stim Hormone w/Rflx3.310.45-5.33[facility] Other Vital Signs Date TimeVital SignValuePerforming FhzqecqvkNccrwkzg28-10-3852 13:42-0500Body ryfixz810.4 cmGloria Shopsy Work Phone: [facility]11-10-2025 13:42-0500 Body mass index (BMI) [Ratio]42.5 kg/h0Uvsusj [facility] DO Work Phone: 1(567)867-[address] [place], [place] [address]-10-2025 13:42-0500 Body sovmevwcdin90.8 [degF]Peri Tyson DO Work Phone: 1(432)[address] [place], [place] 301[address]11-10-2025 13:42-0500 Body yjarme64.88 kgGloria Tyson DO Work Phone: 1(264)[address] [place], [place] 301[address]11-10-2025 13:42-0500 Diastolic blood ncprbaon72 mm[Hg]Peri Tyson DO Work Phone: 1(373)[address] [place], [place] [address]11-10-2025 13:42-0500 Heart rate83 /minGloria Tyson DO Work Phone: 1(221)[address] [place], [place] [address]11-10-2025 13:42-0500 Respiratory rate16 /minGloria Tyson DO Work Phone: 1(613)[address] [place], [place] 3013511-10-2025 13:42-0500 SaO2% (BldA) [Mass fraction]100 %Peri Tsyon DO Work Phone: 1(956)[address] [place], [place] 301[address]11-10-2025 13:42-0500 Systolic blood oqkvflwz573 mm[Hg]Peri Tyson DO Work Phone: 1(664)[address] [place], [place] 301[address]11-05-2025 14:13-0500 Inhaled oxygen flow rate3 L/minGloria Tyson DO Work Phone: 1(091)[address] [place], [place] 301[address]11-05-2025 14:10-0500 Body gigksbxutmr03.6 [degF]Peri Tyson DO Work Phone: 1(720)[address] [place], [place] 301[address]11-05-2025 14:10-0500 Diastolic blood gllqswfu30 mm[Hg]Peri Tyson DO Work Phone: 1(153)[address] [place], [place] [address]11-05-2025 14:10-0500 Heart rate82 /minGloria Tyson DO Work Phone: 1(939)[address] [place], [place] 3013511-05-2025 14:10-0500 Respiratory rate19 /minGloria Tyson DO Work Phone: 1(886)[address] [place], [place] 3013511-05-2025 14:10-0500 SaO2% (BldA) [Mass fraction]99 %Peri Tyson DO Work Phone: 1(448)[address] [place], [place] 3013511-05-2025 14:10-0500 Systolic blood hhorxkwv256 mm[Hg]Peri Tyson DO Work Phone: 1(582)[address] [place], [place] 301[address]10-31-2025 06:44-0400 Body teacyh896.4 cmGloria Tyson DO Work Phone: 1(623)[address] [place], [place] 301[address]10-31-2025 06:44-0400 Body mass index (BMI) [Ratio]42.3 kg/i2Imvrnf Tyson DO Work Phone: 1(364)[address] [place], [place] 301[address]10-31-2025 06:44-0400 Body sfjqae22.42 kgGloria Tyson DO Work Phone: 1(970)[address] [place], [place] 301[address]-31-2025 06:44-0400 Diastolic blood ankcseul82 mm[Hg]Peri Tyson DO Work Phone: 1(205)[address] [place], [place] [address]-31-2025 06:44-0400 Heart rate96 /minGloria Tyson DO Work Phone: 1(244)[address] [place], [place] 301[address]10-31-2025 06:44-0400 Inhaled oxygen flow rate4 L/minGloria Tyson DO Work Phone: 1(153)[address] [place], [place] 301[address]10-31-2025 06:44-0400 Respiratory rate18 /minGloria Tyson DO Work Phone: 1(320)[address] [place], [place] 3013510-31-2025 06:44-0400 SaO2% (BldA) [Mass fraction]98 %Peri Tyson DO Work Phone: 1(312)[address] [place], [place] 301[address]10-31-2025 06:44-0400 Systolic blood ecrfunxt418 mm[Hg]Peri Tyson DO Work Phone: 1(806)[address] [place], [place] 301[address]10-29-2025 09:31-0400 Body voahotvogxg83.5 [degF]Peri Tyson DO Work Phone: 1(149)[address] [place], [place] 3013510-29-2025 09:31-0400 Body olwjbp88.88 kgGloria Tyson DO Work Phone: 1(882)[address] [place], [place] 3013510-29-2025 09:31-0400 Diastolic blood joyqvnyl03 mm[Hg]Peri Tyson DO Work Phone: 1(299)[address] [place], [place] [address]-29-2025 09:31-0400 Heart rate91 /minGloria Tyson DO Work Phone: 1(681)[address] [place], [place] 301[address]10-29-2025 09:31-0400 Inhaled oxygen flow rate4 L/minGloria Tyson DO Work Phone: 1(112)[address] [place], [place] 301[address]10-29-2025 09:31-0400 Respiratory rate20 /minGloria Tyson DO Work Phone: 1(262)[address] [place], [place] 301[address]10-29-2025 09:31-0400 SaO2% (BldA) [Mass fraction]99 %Peri Tyson DO Work Phone: 1(280)[address] [place], [place] 301[address]10-29-2025 09:31-0400 Systolic blood lhdjjmja743 mm[Hg]Peri Tyson DO Work Phone: 1(856)[address] [place], [place] 3013510-08-2025 11:29-0400 Body kezyelgptcj34.7 [degF]Peri Tyson DO Work Phone: 1(530)[address] [place], [place] 3013510-08-2025 11:29-0400 Body upaxmb89.42 kgGloria Tyson DO Work Phone: 1(005)[address] [place], [place] 3013510-08-2025 11:29-0400 Diastolic blood mm[Hg]Peri Tyson DO Work Phone: 1(917)[address] [place], [place] 3013510-08-2025 11:29-0400 Heart rate69 /minGloria Tyson DO Work Phone: 1(482)[address] [place], [place] 3013510-08-2025 11:29-0400 Respiratory rate16 /minGloria Tyson DO Work Phone: 1(431)[address] [place], [place] 3013510-08-2025 11:29-0400 SaO2% (BldA) [Mass fraction]100 %Peri Tyson DO Work Phone: 1(398)[address] [place], [place] 3013510-08-2025 11:29-0400 Systolic blood tzovyngd339 mm[Hg]Peri Tyson DO Work Phone: 1(579)[address] [place], [place] 3013509-20-2025 11:12-0400 Body lnofvrllcix15.2 [degF]Peri Tyson DO Work Phone: 1(301)[address] [place], [place] 3013509-20-2025 11:12-0400 Diastolic blood njelaqna61 mm[Hg]Peri Tyson DO Work Phone: 1(413)[address] [place], [place] 3013509-20-2025 11:12-0400 Heart rate54 /minGloria Tyson DO Work Phone: 1(212)[address] [place], [place] 3013509-20-2025 11:12-0400 Inhaled oxygen flow rate3 L/minGloria Tyson DO Work Phone: 1(566)[address] [place], [place] 3013509-20-2025 11:12-0400 Respiratory rate18 /minGloria Tyson DO Work Phone: 1(123)[address] [place], [place] 3013509-20-2025 11:12-0400 SaO2% (BldA) [Mass fraction]98 %Peri Tyson DO Work Phone: 1(407)[address] [place], [place] 3013509-20-2025 11:12-0400 Systolic blood mm[Hg]Peri Tyson DO Work Phone: 1(572)[address] [place], [place] 3013509-20-2025 05:28-0400 Body .3 kgGloria Tyson DO Work Phone: 1(002)[address] [place], [place] 3013509-17-2025 13:47-0400 Body cdcoix333.4 cmGloria Tyson DO Work Phone: 1(286)[address] [place], [place] 3013509-16-2025 23:50-0400 Body bolaxi607.4 cmGloria Ytson DO Work Phone: 1(597)[address] [place], [place] 3013509-16-2025 23:50-0400 Body jrasvqjprxy70.9 [degF]Peri Tyson DO Work Phone: 1(376)[address] [place], [place] 3013509-16-2025 23:50-0400 Body mokinu209.9 kgGloria Tyson DO Work Phone: 1(880)[address] [place], [place] 3013509-16-2025 23:50-0400 Diastolic blood xstdyueh30 mm[Hg]Peri Tyson DO Work Phone: 1(542)[address] [place], [place] 3013509-16-2025 23:50-0400 Heart rate86 /minGloria Tyson DO Work Phone: 1(068)[address] [place], [place] 3013509-16-2025 23:50-0400 Respiratory rate20 /minGloria Tyson DO Work Phone: 1(106)[address] [place], [place] 3013509-16-2025 23:50-0400 SaO2% (BldA) [Mass fraction]96 %Peri Tyson DO Work Phone: 1(191)[address] [place], [place] 3013509-16-2025 23:50-0400 Systolic blood yywiavim258 mm[Hg]Peri Tyson DO Work Phone: 1(213)[address] [place], [place] 3013509-16-2025 22:53-0400 Inhaled oxygen flow rate5 L/minGloria Tyson DO Work Phone: 1(639)[address] [place], [place] 3013509-15-2025 13:15-0400 Body zuxlzi702.4 cmGloria Tyson DO Work Phone: 1(205)[address] [place], [place] 3013509-15-2025 13:15-0400 Body yhrhzajfhnz564 [degF]Peri Tyson DO Work Phone: 1(215)[address] [place], [place] 3013509-15-2025 13:15-0400 Body ntuupl899.4 kgGloria Tyson DO Work Phone: 1(327)[address] [place], [place] 3013509-15-2025 13:15-0400 Diastolic blood hwxyvxji11 mm[Hg]Peri Tyson DO Work Phone: 1(918)[address] [place], [place] 3013509-15-2025 13:15-0400 Heart rate66 /minGloria Tyson DO Work Phone: 1(606)[address] [place], [place] 3013509-15-2025 13:15-0400 Inhaled oxygen flow rate4 L/minGloria Tyson DO Work Phone: 1(858)[address] [place], [place] 3013509-15-2025 13:15-0400 Respiratory rate16 /minGloria Tyson DO Work Phone: 1(183)[address] [place], [place] 3013509-15-2025 13:15-0400 SaO2% (BldA) [Mass fraction]94 %Peri Tyson DO Work Phone: 1(622)[address] [place], [place] 3013509-15-2025 13:15-0400 Systolic blood kjbfrsij268 mm[Hg]Peri Tyson DO Work Phone: 1(342)[address] [place], [place] 3013509-10-2025 09:11-0400 Body gpqmbicnyzd64.2 [degF]Peri Tyson DO Work Phone: 1(854)[address] [place], [place] 3013509-10-2025 09:11-0400 Diastolic blood mm[Hg]Peri Tyson DO Work Phone: 1(674)[address] [place], [place] 3013509-10-2025 09:11-0400 Heart rate74 /minGloria Tyson DO Work Phone: 1(853)[address] [place], [place] 3013509-10-2025 09:11-0400 Inhaled oxygen flow rate3 L/minGloria Tyson DO Work Phone: 1(753)[address] [place], [place] 3013509-10-2025 09:11-0400 Respiratory rate20 /minGloria Tyson DO Work Phone: 1(206)[address] [place], [place] 3013509-10-2025 09:11-0400 SaO2% (BldA) [Mass fraction]99 %Peri Tyson DO Work Phone: 1(293)[address] [place], [place] 3013509-10-2025 09:11-0400 Systolic blood zbyboitf268 mm[Hg]Peri Tyson DO Work Phone: 1(624)[address] [place], [place] 3013509-10-2025 08:42-0400 Body bdsfxvrektp15.2 [degF]Peri Tyson DO Work Phone: 1(630)[address] [place], [place] 3013509-10-2025 08:42-0400 Body ijxvzh697.6 kgGloria Tyson DO Work Phone: 1(171)[address] [place], [place] 3013509-10-2025 08:42-0400 Diastolic blood mm[Hg]Peri Tyson DO Work Phone: 1(996)[address] [place], [place] 3013509-10-2025 08:42-0400 Heart rate74 /minGloria Tyson DO Work Phone: 1(099)[address] [place], [place] 3013509-10-2025 08:42-0400 Respiratory rate16 /minGloria Tyson DO Work Phone: 1(082)[address] [place], [place] 3013509-10-2025 08:42-0400 SaO2% (BldA) [Mass fraction]99 %Peri Tyson DO Work Phone: 1(354)[address] [place], [place] 3013509-10-2025 08:42-0400 Systolic blood eanlxtix116 mm[Hg]Peri Tyson DO Work Phone: 1(515)[address] [place], [place] 3013509-08-2025 08:48-0400 Body kungif244.4 cmMack Bigg DPM Work Phone: noJohn [facility] CenterTxyhjiskkm43-00-7860 08:48-0400Body mass index (BMI) [Ratio]45.7 kg/m1WdfhehyeMack Tsai DPM Work Phone: noms Xtsmpfjwig37-29-8625 08:48-0400Body .14 kgJoesphjenniemarilee Tsai DPM Work Phone: [facility]ad[facility]8792 08:48-0400Respiratory rate16 /minMack Tsai DPM Work Phone: [facility] HospitalYpnefztvdg62-15-0360 10:16-0400Inhaled oxygen flow rate3 L/minGloria Tyson DO Work Phone: 1(586)[address] [place], [place] 3013508-26-2025 10:14-0400 Body jordmhvllbr35.7 [degF]Peri Tyson DO Work Phone: 1(422)[address] [place], [place] 3013508-26-2025 10:14-0400 Body .91 kgGloria Tyson DO Work Phone: 1(872)[address] [place], [place] 3013508-26-2025 10:14-0400 Diastolic blood cbkuwwsw81 mm[Hg]Peri Tyson DO Work Phone: 1(915)[address] [place], [place] 3013508-26-2025 10:14-0400 Heart rate83 /minGloria Tyson DO Work Phone: 1(031)[address] [place], [place] 3013508-26-2025 10:14-0400 Respiratory rate20 /minGloria Tyson DO Work Phone: 1(522)[address] [place], [place] 3013508-26-2025 10:14-0400 SaO2% (BldA) [Mass fraction]99 %Peri Tyson DO Work Phone: 1(566)[address] [place], [place] 3013508-26-2025 10:14-0400 Systolic blood ezspbict376 mm[Hg]Peri Tyson DO Work Phone: 1(929)[address] [place], [place] 3013508-12-2025 10:05-0400 Inhaled oxygen flow rate3 L/minGloria Tyson DO Work Phone: 1(330)[address] [place], [place] 3013508-12-2025 10:03-0400 Body hobjnrovenw07.6 [degF]Peri Tyson DO Work Phone: 1(606)[address] [place], [place] 3013508-12-2025 10:03-0400 Body cedplztwusn37.4 [degF]Peri Tyson DO Work Phone: 1(699)[address] [place], [place] 3013508-12-2025 10:03-0400 Body ivcweo348.95 kgGloria Tyson DO Work Phone: 1(018)[address] [place], [place] 3013508-12-2025 10:03-0400 Diastolic blood euwzqnle48 mm[Hg]Peri Tyson DO Work Phone: 1(995)[address] [place], [place] 3013508-12-2025 10:03-0400 Diastolic blood exuatndr95 mm[Hg]Peri Tyson DO Work Phone: 1(527)[address] [place], [place] 3013508-12-2025 10:03-0400 Heart rate82 /minGloria Tyson DO Work Phone: 1(792)[address] [place], [place] 3013508-12-2025 10:03-0400 Heart rate72 /minGloria Tsyon DO Work Phone: 1(523)[address] [place], [place] 3013508-12-2025 10:03-0400 Respiratory rate18 /minGloria Tyson DO Work Phone: 1(720)[address] [place], [place] 3013508-12-2025 10:03-0400 SaO2% (BldA) [Mass fraction]95 %Peri Tyson DO Work Phone: 1(236)[address] [place], [place] 3013508-12-2025 10:03-0400 SaO2% (BldA) [Mass fraction]98 %Peri Tyson DO Work Phone: 1(893)[address] [place], [place] 3013508-12-2025 10:03-0400 Systolic blood fcictnlu208 mm[Hg]Peri Tyson DO Work Phone: 1(112)[address] [place], [place] 3013508-12-2025 10:03-0400 Systolic blood cpqqvovn552 mm[Hg]Peri Tyson DO Work Phone: 1(580)[address] [place], [place] 3013508-04-2025 10:17-0400 Body tfsfhu987.94 cmGloria Tyson DO Work Phone: [facility]08-04-2025 09:04-0400 Body .4 Leila Aguilar MD Work Phone: 1(711)[address]08-04-2025 09:04-0400Body mass index (BMI) [Ratio]45.7 kg/s4SjnrvJeannie Aguilar MD Work Phone: 1(080)[address] [place], [place] 3850108-04-2025 09:04-0400Body zpdjbi812.14 kgJeannie Aguilar MD Work Phone: 1(559)[address] [place], [place] 3850108-04-2025 09:04-0400Diastolic blood nswpxaza07 mm[Hg]Jeannie Aguilar MD Work Phone: 1(085)[address] [place], [place] 3850108-04-2025 09:04-0400Heart rate96 /min Jeannie Aguilar MD Work Phone: 1(060)[address] [place], [place] 3850108-04-2025 09:04-0400Respiratory rate18 /minJeannie Aguilar MD Work Phone: 1(058)[address] [place], [place] 3850108-04-2025 09:04-9444YwY1% (BldA) [Mass fraction]94 %Jeannie Aguilar MD Work Phone: 1(508)[address] [place], [place] 3850108-04-2025 09:04-0400Systolic blood ygczatlt495 mm[Hg]Jeannie Aguilar MD Work Phone: 1(644)[address] [place], [place] 3850107-17-2025 14:10-0400Body temperature 97.8 [degF]Peri Marbella DO Work Phone: [facility]07-17-2025 14:10-0400 Body acrtij478.32 kgGloria Tyson DO Work Phone: [facility]07-17-2025 14:10-0400 Diastolic blood fovxybis47 mm[Hg]Peri Marbella DO Work Phone: 1(567)[address] [place], [place] 3013507-17-2025 14:10-0400 Heart rate77 /minGloria Tyson DO Work Phone: 1(687)[address] [place], [place] 3013507-17-2025 14:10-0400 Respiratory rate16 /minGloria Tyson DO Work Phone: 1(123)[address] [place], [place] 3013507-17-2025 14:10-0400 SaO2% (BldA) [Mass fraction]95 %Peri Tyson DO Work Phone: 1(735)[address] [place], [place] 3013507-17-2025 14:10-0400 Systolic blood upixgbhd591 mm[Hg]Peri Tyson DO Work Phone: 1(680)[address] [place], [place] 3013506-26-2025 11:17-0400 Body tenoxvnuniq56.9 [degF]Peri Tyson DO Work Phone: 1(914)[address] [place], [place] 3013506-26-2025 11:17-0400 Body jivjuw562.87 kgGloria Tyson DO Work Phone: 1(017)[address] [place], [place] 3013506-26-2025 11:17-0400 Diastolic blood bxezlwce00 mm[Hg]Peri Tyson DO Work Phone: 1(542)[address] [place], [place] 3013506-26-2025 11:17-0400 Heart rate60 /minGloria Tyson DO Work Phone: 1(565)[address] [place], [place] 3013506-26-2025 11:17-0400 Respiratory rate16 /minGloria Tyson DO Work Phone: 1(122)[address] [place], [place] 3013506-26-2025 11:17-0400 SaO2% (BldA) [Mass fraction]9 %Peri Tyson DO Work Phone: 1(718)[address] [place], [place] 3013506-26-2025 11:17-0400 Systolic blood yqscavkt377 mm[Hg]Peri Tyson DO Work Phone: 1(662)[address] [place], [place] 3013506-20-2025 09:57-0400 Body crpfgy582.6 cmMack Tsai DPM Work Phone: [facility]Jaukbhztax22-31-2716 09:57-0400Body mass index (BMI) [Ratio]38.79 kg/x8EbtvtnteMack Tsai DPM Work Phone: [facility] HospitalDzqhujyais14-75-6834 09:57-0400Body iqpxvc506.51 kgMack Tsai DPM Work Phone: [facility] HospitalAnupimmmkf06-21-7420 09:57-0400Respiratory rate16 /minMack Tsai DPM Work Phone: [facility] HospitalVdcabusylj36-59-4493 10:48-0400Diastolic blood wdgjcisk47 mm[Hg]Peri Tyson DO Work Phone: 1(277)[address] [place], [place] 3013506-09-2025 10:48-0400 Heart rate78 /minGloria Tyson DO Work Phone: 1(173)[address] [place], [place] 3013506-09-2025 10:48-0400 Respiratory rate16 /minGloria Tyson DO Work Phone: 1(803)[address] [place], [place] 3013506-09-2025 10:48-0400 SaO2% (BldA) [Mass fraction]95 %Peri Tyson DO Work Phone: 1(078)[address] [place], [place] 3013506-09-2025 10:48-0400 Systolic blood ksxhymvk687 mm[Hg]Peri Tyson DO Work Phone: 1(705)[address] [place], [place] 3013506-09-2025 09:18-0400 Body .4 cmGloria Tyson DO Work Phone: 1(628)[address] [place], [place] 3013506-09-2025 09:18-0400 Body .23 kgGloria Tyson DO Work Phone: 1(987)[address] [place], [place] 3013505-21-2025 11:17-0400 Body zuoclp597.94 cmGloria Tyson DO Work Phone: 1(640)[address] [place], [place] 3013505-21-2025 11:17-0400 Body mass index (BMI) [Ratio]42.9 kg/o2Lntzxl Tyson DO Work Phone: 1(196)[address] [place], [place] 3013505-21-2025 11:17-0400 Body .9 [degF]Peri Tyson DO Work Phone: 1(329)[address] [place], [place] 3013505-21-2025 11:17-0400 Body vznaec350.96 kgGloria Tyson DO Work Phone: 1(683)[address] [place], [place] 3013505-21-2025 11:17-0400 Diastolic blood kucjizmp40 mm[Hg]Peri Tyson DO Work Phone: 1(679)[address] [place], [place] 3013505-21-2025 11:17-0400 Heart rate73 /minGloria Tyson DO Work Phone: 1(061)[address] [place], [place] 3013505-21-2025 11:17-0400 Respiratory rate18 /minGloria Tyson DO Work Phone: 1(016)[address] [place], [place] 3013505-21-2025 11:17-0400 SaO2% (BldA) [Mass fraction]95 %Peri Tyson DO Work Phone: 1(154)[address] [place], [place] 3013505-21-2025 11:17-0400 Systolic blood zcxwyvwz637 mm[Hg]Peri Tyson DO Work Phone: 1(761)[address] [place], [place] 3013505-15-2025 13:25-0400 Body .6 cmLeanne Radha DO Work Phone: 1(851)[facility] HospitalZxdbuxamoo34-48-6187 13:25-0400Body mass index (BMI) [Ratio]38.79 kg/l5Yrqnvq Radha DO Work Phone: 1(813)9629242[facility] HospitalJrgazkhqvi07-54-0924 13:25-0400Body hhxipg505.51 kgLeanne Radha DO Work Phone: 1(538)627[facility] HospitalTtoowckehe63-31-5664 13:25-0400Heart rate75 /min Svetlana Radha DO Work Phone: [facility] HospitalWtfozfxnwa89-45-3514 13:25-7058CpQ5% (BldA) [Mass fraction]98 %Svetlana Radha DO Work Phone: [facility] HospitalOfcenytsww46-64-8091 11:37-0400Body wbkeio687.4 Leila Aguilar MD Work Phone: [address] [place], [place] [address]Srkmttdhak71-14-3096 11:37-0400Body mass index (BMI) [Ratio]44.72 kg/t3EluxkJeannie Aguilar MD Work Phone: [address] [place], [place] [address]Xrcwdlwxoi58-29-2774 11:37-0400Body eqrmpq249.87 kgJeannie Aguilar MD Work Phone: 1(810)678-[address] [place], [place] [address]Byrgxixifm79-09-2724 11:37-0400Diastolic blood ksxweeax05 mm[Hg]Jeannie Aguilar MD Work Phone: 1(038)804-[address] [place], [place] [address]Vovcbojlzs01-81-3306 11:37-0400Heart rate71 /min Jeannie Aguilar MD Work Phone: 1(040)311-[address] [place], [place] [address]Shvszyaujs20-36-9498 11:37-0400Respiratory rate16 /minJeannie Aguilar MD Work Phone: 1(528)300-[address] [place], [place] [address]Xjwjvqfvhg65-46-0916 11:37-9542DrV9% (BldA) [Mass fraction]95 %Jeannie Aguilar MD Work Phone: 1(511)934-[address] [place], [place] [address]Vtrqdfpiah48-58-4662 11:37-0400Systolic blood arxwddbw828 mm[Hg]Jeannie Aguilar MD Work Phone: [address] [place], [place] [address]Lgboggfvco28-25-0728 08:27-0400Body tixfrt865.94 cmGloria Tyson DO Work Phone: [facility]04-28-2025 08:27-0400 Body mass index (BMI) [Ratio]43.4 kg/k7Qjoxkp Tyson DO Work Phone: [facility]04-28-2025 08:27-0400 Body ywmcfo117.43 kgGloria Tyson DO Work Phone: [facility]04-28-2025 08:27-0400 Diastolic blood onfcnjqf79 mm[Hg]Peri Marbella DO Work Phone: 1(084)9-[address] [place], [place] 4846004-28-2025 08:27-0400 Heart rate79 /minGloria Marbella DO Work Phone: 1(222)3-[address] [place], [place] 4846004-28-2025 08:27-0400 Respiratory rate18 /minGloria Marbella DO Work Phone: 1(564)[address]04-28-2025 08:27-0400 SaO2% (BldA) [Mass fraction]97 %Periluis Tyson DO Work Phone: 1(563)[address]04-28-2025 08:27-0400 Systolic blood yintpkzo642 mm[Hg]Peri Marbella DO Work Phone: 1(292)1-[address] [place], [place] 4846002-12-2025 10:41-0500 Body uozpsf400.4 Leila Aguilar MD Work Phone: [address] [place], [place] [address]Doqwtthjpq81-16-7606 10:41-0500Body mass index (BMI) [Ratio]44.33 kg/p7MnlrgJeannie Aguilar MD Work Phone: [facility] HospitalHrjaoxrcmd86-70-9356 10:41-0500Body espcom609.97 kgJeannie Aguilar MD Work Phone: [address] [place], [place] [address]Prpzqstbbd04-19-2927 10:41-0500Diastolic blood ywvsvxia78 mm[Hg]Jeannie Aguilar MD Work Phone: [address] [place], [place] [address]Zcsdrknbwo34-35-8341 10:41-0500Heart rate97 /min Jeannie Aguilar MD Work Phone: [address] [place], [place] [address]Evxqnzbiej77-54-3518 10:41-0500Respiratory rate18 /minJeannie Aguilar MD Work Phone: [facility] HospitalQjpqjplpok68-82-2492 10:41-8496SbV3% (BldA) [Mass fraction]94 %Jeannie Aguilar MD Work Phone: [facility] HospitalEhmobrfdmq93-08-7128 10:41-0500Systolic blood yabeobcz774 mm[Hg]Jeannie Aguilar MD Work Phone: [facility] HospitalHjwmdgcjgf89-25-7449 08:28-0500Body toithi462.4 cmNicjenniemarilee Brown DPM Work Phone: [facility] HospitalCfwifixnft75-74-8000 08:28-0500Body mass index (BMI) [Ratio]48.63 kg/y5Hxnfzwuz Brown DPM Work Phone: [facility] HospitalTgbtqeepoj48-96-1162 08:28-0500Body ghywke141.95 kgNicholmarilee Brown DPM Work Phone: [facility] HospitalLzlbmojgja64-61-6204 08:28-0500Respiratory rate18 /minNickaleb Brown DPM Work Phone: [facility] HospitalTqxregoomr30-23-0467 11:26-0500Body izrrje351.94 cmChristopher Germain DO Work Phone: 1(456)043-[address] [place], [place] 5320911-25-2024 11:26-0500 Body mass index (BMI) [Ratio]46.8 kg/r1Ddiiobqwded Germain DO Work Phone: 1(535)098-[facility]11-25-2024 11:26-0500 Body ylrdxq589.49 kgChristopher Germain DO Work Phone: 1(057)958-[address] [place], [place] 5320911-25-2024 11:26-0500 Diastolic blood mm[Hg]Christopher Germain DO Work Phone: 1(742)145-[address] [place], [place] 5320911-25-2024 11:26-0500 Heart rate84 /minChristopher Germain DO Work Phone: 1(680)531-[address] [place], [place] 5320911-25-2024 11:26-0500 Respiratory rate18 /minChristopher Germain DO Work Phone: 3(504)863-[address] [place], [place] 9785011-25-2024 11:26-0500 SaO2% (BldA) [Mass fraction]95 %Brenden Groves DO Work Phone: [facility]11-25-2024 11:26-0500 Systolic blood yzotxgyz300 mm[Hg]Brenden Groves DO Work Phone: [facility]11-20-2024 13:25-0500 Body pvfcuf036.94 cmGloria Tyson DO Work Phone: 1(264)[address] [place], [place] 3013511-20-2024 13:25-0500 Body mass index (BMI) [Ratio]46.3 kg/x0Spouaz Tyson DO Work Phone: 1(502)[address] [place], [place] 3013511-20-2024 13:25-0500 Body .4 [degF]Peri Marbella DO Work Phone: 1(130)[address] [place], [place] 3013511-20-2024 13:25-0500 Body ldahzj758.13 kgGloria Tyson DO Work Phone: 1(485)[address] [place], [place] 3013511-20-2024 13:25-0500 Diastolic blood gisxxcfr79 mm[Hg]Peri Tyson DO Work Phone: 1(203)[address] [place], [place] 3013511-20-2024 13:25-0500 Heart rate75 /minGloria Tyson DO Work Phone: 1(286)[address] [place], [place] 3013511-20-2024 13:25-0500 Respiratory rate18 /minGloria Tyson DO Work Phone: 1(867)[address] [place], [place] 3013511-20-2024 13:25-0500 SaO2% (BldA) [Mass fraction]95 %Peri Tyson DO Work Phone: 1(872)[address] [place], [place] 3013511-20-2024 13:25-0500 Systolic blood ulwlcoyw937 mm[Hg]Peri Tyson DO Work Phone: 1(713)[address] [place], [place] 3013510-29-2024 08:51-0400 Body awbosk112.4 cmDO Peri Tyson Work Phone: 1(973)[address] [place], [place] 3013510-29-2024 08:51-0400 Body mass index (BMI) [Ratio]47.2 kg/m2DO Peri Tyson Work Phone: 1(358)[address] [place], [place] 3013510-29-2024 08:51-0400 Body ihvgos347.76 kgDO Peri Tyson Work Phone: 1(801)[address] [place], [place] 3013510-29-2024 08:51-0400 Diastolic blood euktydbq54 mm[Hg]DO Peri Tyson Work Phone: 1(084)[address] [place], [place] 3013510-29-2024 08:51-0400 Heart rate59 /Ramos Tyson Work Phone: 1(225)[address] [place], [place] 3013510-29-2024 08:51-0400 Inhaled oxygen flow rate4 L/Ramos Tyson Work Phone: 1(568)[address] [place], [place] 3013510-29-2024 08:51-0400 Respiratory rate16 /Ramos Tyson Work Phone: 1(762)[address] [place], [place] 3013510-29-2024 08:51-0400 SaO2% (BldA) [Mass fraction]96 %DO Peri Tyson Work Phone: 1(862)[address] [place], [place] 3013510-29-2024 08:51-0400 Systolic blood rymwyhfn214 mm[Hg]DO Peri Tyson Work Phone: 1(400)[address] [place], [place] 3013510-22-2024 08:17-0400 Body cosegw488.4 cmMack Tsai DPM Work Phone: [facility] HospitalVamwdskuel49-92-3370 08:17-0400Body mass index (BMI) [Ratio]48.63 kg/b6DyfwtdfoMack Tsai DPM Work Phone: [facility] HospitalBomtygumaj89-94-6317 08:17-0400Body vfttyy060.95 kgMack Tsai DPM Work Phone: [facility] HospitalQecqgxusrw50-28-8856 08:17-0400Diastolic blood gwmlouuj69 mm[Hg]Mack Tsai DPM Work Phone: [facility] HospitalPyzwisjhsu17-75-1199 08:17-0400Heart rate81 /min Mack Tsai DPM Work Phone: [facility] HospitalUztkmlbrev37-49-8256 08:17-0400Systolic blood lzbkmzob350 mm[Hg]Mack Tsai DPM Work Phone: [facility] HospitalVuqcxgzpwt62-78-9224 10:51-0400Body ddgatg975.4 Leila Aguilar MD Work Phone: [facility] HospitalTxatjdpbpq26-78-8650 10:51-0400Body mass index (BMI) [Ratio]48.63 kg/c8BeygdJeannie Aguilar MD Work Phone: [facility] HospitalCoaprkprus43-67-1562 10:51-0400Body lninrq763.95 kgJeannie Aguilar MD Work Phone: [facility] HospitalKnchynzxvj25-90-7064 10:51-0400Diastolic blood ytxsmuzq88 mm[Hg]Jeannie Aguilar MD Work Phone: [address] [place], [place] [address]Pzdtiyprqw40-05-7426 10:51-0400Heart rate81 /min Jeannie Aguilar MD Work Phone: [facility] HospitalAzybucbrnr81-94-3377 10:51-0400Respiratory rate18 /minJeannie Aguilar MD Work Phone: [address] [place], [place] [address]Vmqbkosmhr60-17-3592 10:51-0400Systolic blood wfoefeae202 mm[Hg]Jeannie Aguilar MD Work Phone: [facility] HospitalWkaeufbswt10-24-4554 13:41-0400Body lqaedj741.6 cmLkelsi Radha DO Work Phone: noJohn [facility] CenterBkqhhiiole11-24-7853 13:41-0400Body mass index (BMI) [Ratio]41.54 kg/o6PkkhkxSvetlana Garcia DO Work Phone: 1(419)626-[address] [place], [place] [address]Ukbpzfhgxg77-89-7257 13:41-0400Body cgfhio204.77 kgLeanne Radha DO Work Phone: 1(103)1-[facility] HospitalXuphipopir59-22-3142 13:41-0400Diastolic blood ulcojrfl70 mm[Hg]Svetlana Radha DO Work Phone: 1(126)266-[facility] HospitalYoaaezfauu65-01-5424 13:41-0400Heart rate97 /min Svetlana Radha DO Work Phone: 1(733)249-[facility] HospitalS[facility] HospitalOcaqtomyrx34-40-7539 13:41-2638AnQ2% (BldA) [Mass fraction]98 %Svetlana Radha DO Work Phone: 1(705)9-[facility] HospitalWkdesnnoec08-24-4019 13:41-0400Systolic blood iuljmbtf235 mm[Hg]Svetlana Radha DO Work Phone: 1(061)0-[address] [place], [place] [address]Ihbfemxrvy75-99-2255 10:17-0400Body temperature 97.9 [degF]DO Periluis Tyson Work Phone: 1(465)[address]05-22-2024 10:17-0400 Body hcxuln786.49 kgDO Peri Tyson Work Phone: 1(984)[address]05-22-2024 10:17-0400 Diastolic blood ypbmwxew40 mm[Hg]DO Peri Tyson Work Phone: 1(562)[address]05-22-2024 10:17-0400 Heart rate51 /minDO Peri Tyson Work Phone: 1(088)6-[address] [place], [place] 4846005-22-2024 10:17-0400 Inhaled oxygen flow rate4 L/minDO Peri Tyson Work Phone: 6(137)8-[address] [place], [place] 4846005-22-2024 10:17-0400 Respiratory rate16 /minDO Peri Tyson Work Phone: 1(041)541-[facility]05-22-2024 10:17-0400 SaO2% (BldA) [Mass fraction]96 %DO Peri Tyson Work Phone: [facility]05-22-2024 10:17-0400 Systolic blood bmevxqhi092 mm[Hg]DO Peri Tyson Work Phone: 1(132)1-[facility]04-29-2024 09:23-0400 Body qyyowu847.4 cmDO Peri Tyson Work Phone: 1(228)0-[facility]04-29-2024 09:23-0400 Body mass index (BMI) [Ratio]49.4 kg/m2DO Peri Tyson Work Phone: 1(645)[address]04-29-2024 09:23-0400 Body ludcmg968.78 kgDO Peri Tyson Work Phone: 1(572)[address]04-29-2024 09:23-0400 Diastolic blood qvylizlo02 mm[Hg]DO Peri Tyson Work Phone: 1(040)[address] [place], [place] 3013504-29-2024 09:23-0400 Heart irwj433 /Ramos Tyson Work Phone: 1(545)[address] [place], [place] 3013504-29-2024 09:23-0400 Inhaled oxygen flow rate4 L/Ramos Tyson Work Phone: 1(795)[address]04-29-2024 09:23-0400 Respiratory rate18 /Ramos Tyson Work Phone: 1(790)0-[address] [place], [place] 4846004-29-2024 09:23-0400 SaO2% (BldA) [Mass fraction]96 %DO Peri Tyson Work Phone: 1(793)4-[facility]04-29-2024 09:23-0400 Systolic blood zimlxzof629 mm[Hg]DO Peri Tyson Work Phone: 1(325)890-[facility]02-14-2024 09:16-0500 Body .4 cmDO Brenden Groves Work Phone: [facility]02-14-2024 09:16-0500 Body mass index (BMI) [Ratio]48.8 kg/m2DO Christopher Germain Work Phone: 1(031)069-[address] [place], [place] 5320902-14-2024 09:16-0500 Body tbjaxoggwuc27.4 [degF]DO Christopher Germain Work Phone: 1(470)685-[address] [place], [place] 5320902-14-2024 09:16-0500 Body pntljo715.39 kgDO Christopher Germain Work Phone: 1(236)177-[address] [place], [place] 5320902-14-2024 09:16-0500 Diastolic blood htrmetcd93 mm[Hg]DO Christopher Germain Work Phone: 1(938)676-[address] [place], [place] 5320902-14-2024 09:16-0500 Heart rate74 /minDO Christopher Germain Work Phone: 1(456)904-[address] [place], [place] 5320902-14-2024 09:16-0500 SaO2% (BldA) [Mass fraction]98 %DO Christopher Germain Work Phone: 1(220)458-[address] [place], [place] 5320902-14-2024 09:16-0500 Systolic blood hykcvklg953 mm[Hg]DO Christopher Germain Work Phone: 1(006)812-[address] [place], [place] 5320901-30-2024 08:28-0500 Body .4 cmDO Christopher Germain Work Phone: 1(209)455-[address] [place], [place] 5320901-30-2024 08:28-0500 Body mass index (BMI) [Ratio]48.8 kg/m2DO Christopher Germain Work Phone: 1(992)377-[address] [place], [place] 5320901-30-2024 08:28-0500 Body .39 kgDO Christopher Germain Work Phone: 1(492)418-[address] [place], [place] 5320901-30-2024 08:17-0500 Body vbgfowgnwdq18.3 [degF]DO Periluis Tyson Work Phone: [facility]01-30-2024 08:17-0500 Diastolic blood riaavkek02 mm[Hg]DO Peri Marbella Work Phone: 1(775)[address] [place], [place] 3013501-30-2024 08:17-0500 Heart arjf170 /minDO Peri Tyson Work Phone: 1(820)[address] [place], [place] 3013501-30-2024 08:17-0500 Respiratory rate18 /minDO Peri Tyson Work Phone: 1(337)[address] [place], [place] 3013501-30-2024 08:17-0500 Systolic blood ndioyehm327 mm[Hg]DO Periluis Tyson Work Phone: 1(252)[address] [place], [place] 3013501-16-2024 09:09-0500 Body wrwisc140.4 cmDO Peri Tyson Work Phone: 1(266)[address] [place], [place] 3013501-16-2024 09:09-0500 Body mass index (BMI) [Ratio]48.8 kg/m2DO Peri Tyson Work Phone: 1(246)[address] [place], [place] 3013501-16-2024 09:09-0500 Body mezdmf261.39 kgDO Peri Tyson Work Phone: 1(801)[address] [place], [place] 3013501-16-2024 08:50-0500 Body kmxhldsdpye23 [degF]DO Periluis Tyson Work Phone: 1(201)[address] [place], [place] 3013501-16-2024 08:50-0500 Diastolic blood kwuaerft64 mm[Hg]DO Periluis Tyson Work Phone: 1(193)[address] [place], [place] 3013501-16-2024 08:50-0500 Heart cfor519 /minDO Peri Tyson Work Phone: 1(280)[address] [place], [place] 3013501-16-2024 08:50-0500 Inhaled oxygen flow rate4 L/minDO Peri Tyson Work Phone: 1(504)[address] [place], [place] 3013501-16-2024 08:50-0500 Respiratory rate20 /minDO Peri Tyson Work Phone: 1(443)[address] [place], [place] 3013501-16-2024 08:50-0500 Systolic blood keihtxna746 mm[Hg]DO Peri Tyson Work Phone: 1(235)[address] [place], [place] 3013511-22-2023 13:28-0500 Body anljtnlbnaz22.6 [degF]DO Peri Tyson Work Phone: 1(600)[address] [place], [place] 3013511-22-2023 13:28-0500 Body fwlybl985.22 kgDO Peri Tyson Work Phone: 1(229)[address] [place], [place] 3013511-22-2023 13:28-0500 Diastolic blood azuhmyxb09 mm[Hg]DO Peri Tyson Work Phone: 1(897)[address] [place], [place] 3013511-22-2023 13:28-0500 Heart rate87 /minDO Peri Tyson Work Phone: 1(860)[address] [place], [place] 3013511-22-2023 13:28-0500 Inhaled oxygen flow rate4 L/minDO Peri Tyson Work Phone: 1(319)[address] [place], [place] 3013511-22-2023 13:28-0500 Respiratory rate16 /minDO Peri Tyson Work Phone: 1(035)[address] [place], [place] 3013511-22-2023 13:28-0500 SaO2% (BldA) [Mass fraction]97 %DO Peri Tyson Work Phone: 1(532)[address] [place], [place] 3013511-22-2023 13:28-0500 Systolic blood uwfswsoo939 mm[Hg]DO Peri Tyson Work Phone: 1(792)[address] [place], [place] 3013511-02-2023 10:15-0400 Diastolic blood mm[Hg]DO Peri Tyson Work Phone: 1(202)[address] [place], [place] 3013511-02-2023 10:15-0400 Heart rate77 /minDO Peri Tyson Work Phone: 1(095)[address] [place], [place] 3013511-02-2023 10:15-0400 Inhaled oxygen flow rate4 L/minDO Peri Tyson Work Phone: 1(720)[employer] [place], [place] 4846011-02-2023 10:15-0400 Respiratory rate18 /MiguelangelO ePri Tyson Work Phone: 1(327)[address] [place], [place] 3013511-02-2023 10:15-0400 SaO2% (BldA) [Mass fraction]97 %DO Peri Tyson Work Phone: 1(471)[address] [place], [place] 3013511-02-2023 10:15-0400 Systolic blood zwlvzwra583 mm[Hg]DO Peri Tyson Work Phone: 1(065)[address] [place], [place] 3013511-02-2023 08:15-0400 Body noxvdd741.4 cmDO Peri Tyson Work Phone: 1(149)[address] [place], [place] 3013511-02-2023 08:15-0400 Body .86 kgDO Peri Tyson Work Phone: 1(214)[address] [place], [place] 3013510-27-2023 09:00-0400 Body ikqooj274.4 cmPeri Tyson Other [employer] Other [id number] 09:00-0400Body mass index (BMI) [Ratio] 48.43 kg/t0Qrbmrc Tyson Other [facility] [employer] Other 40-60821742-05-4133 09:00-0400Body igqpil315.49 kgPeri Tyson Other [facility] [employer] Other 10-27-2023 09:00-0400Diastolic blood vdlmlarb51 mm[Hg] Peri Marbella Other [employer] Other 10-27-2023 09:00-0400Respiratory rate20 /minPeri Tyson Other [employer] Other 10-27-2023 09:00-2533MeZ9% (BldA) [Mass fraction]99 % Periroyce Tyson Other [employer] Other 10-27-2023 09:00-0400Systolic blood mm[Hg] Periroyce Tyson Other [employer] Other [id number] 08:55-0400Body .5 [degF]DO Peri Tyson Work Phone: 1(424)[address] [place], [place] 3013510-19-2023 08:55-0400 Body .94 kgDO Peri Tyson Work Phone: 1(989)[address] [place], [place] 3013510-19-2023 08:55-0400 Diastolic blood unnefsts82 mm[Hg]DO Periluis Tyson Work Phone: 1(271)[address] [place], [place] 3013510-19-2023 08:55-0400 Heart rate82 /minDO Periluis Tyson Work Phone: 1(578)[address] [place], [place] 3013510-19-2023 08:55-0400 Respiratory rate16 /minDO Periluis Tyson Work Phone: 1(943)[address] [place], [place] 3013510-19-2023 08:55-0400 SaO2% (BldA) [Mass fraction]98 %DO Peri Marbella Work Phone: 1(998)[address] [place], [place] 3013510-19-2023 08:55-0400 Systolic blood kfjqoqxv354 mm[Hg]DO Peri Marbella Work Phone: 1(671)[address] [place], [place] 3013510-02-2023 08:00-0400 Body sbjfyc935.4 cmDebor Blades Other [employer] Other 10-02-2023 08:00-0400Body mass index (BMI) [Ratio] 47.84 kg/x2[place]unway [employer] Other [employer] Other 10-02-2023 08:00-0400Body knvsop859.13 kgDetrice Cignifivic Other [facility] [employer] Other 10-02-2023 08:00-0400Diastolic blood diblrudz823 mm[Hg]Patsy Cignifis Other [facility] [employer] Other 10-02-2023 08:00-0400Systolic blood hdxvxzma954 mm[Hg] Patsy Cignifis Other [facility] [employer] Other 09-07-2023 13:38-0400Diastolic blood dnsohtrn32 mm[Hg] DO Peri Tyson Work Phone: 1(142)108-[facility]09-07-2023 13:38-0400 Heart rate77 /minDO Peri Tyson Work Phone: 1(152)178-[facility]09-07-2023 13:38-0400 Inhaled oxygen flow rate4 L/minDO Peri Tyson Work Phone: 1(909)486-[facility]09-07-2023 13:38-0400 Respiratory rate16 /minDO Peri Tyson Work Phone: 1(284)794-[facility]09-07-2023 13:38-0400 SaO2% (BldA) [Mass fraction]97 %DO Peri Tyson Work Phone: 1(506)006-[facility]09-07-2023 13:38-0400 Systolic blood pzujubpl241 mm[Hg]DO Peri Tyson Work Phone: [facility]850[facility] 11:03-0400 Body crilug467.4 cmDO Peri Tyson Work Phone: [facility]304[facility] 11:03-0400 Body mass index (BMI) [Ratio]44.9 kg/m2DO Peri Tyson Work Phone: 1(260)8-[facility]09-07-2023 11:03-0400 Body eqtemk325.32 kgDO Peri Tyson Work Phone: 1(051)9-[address] [place], [place] 4846009-07-2023 09:34-0400 Body ysldsmglxus47.1 [degF]DO Peri Tyson Work Phone: 1(446)3-[address] [place], [place] 4846006-06-2023 11:30-0400 Body pinuxq058.4 cmGlanh Tyson Other [employer] Other 06-06-2023 11:30-0400Body mass index (BMI) [Ratio] 45.19 kg/s5VpnqouPeri Tyson Other [employer] Other 06-06-2023 11:30-0400Body .96 kgPeri Marbella Other [employer] Other 06-06-2023 11:30-0400Diastolic blood ovwxtuui38 mm[Hg] Peri Tyson Other [employer] Other 06-06-2023 11:30-0400Respiratory rate20 /minPeri Tyson Other [employer] Other 06-06-2023 11:30-8202YuD0% (BldA) [Mass fraction]99 % Peri Tyson Other [employer] Other 06-06-2023 11:30-0400Systolic blood lusvckhm202 mm[Hg] Peri Tyson Other [employer] Other [id number] 15:04-0400Body gnmwcfoiqcv72.8 [degF]DO Peri Tyson Work Phone: 1(373)8-[address] [place], [place] 4846004-19-2023 15:04-0400 Body .41 kgDO Peri Tyson Work Phone: 1(063)[address]04-19-2023 15:04-0400 Diastolic blood mm[Hg]DO Periluis Tyson Work Phone: 1(033)[address]04-19-2023 15:04-0400 Heart rate82 /Ramos Whitt Tyson Work Phone: 1(002)[address]04-19-2023 15:04-0400 Respiratory rate16 /Ramos Whitt Tyson Work Phone: 1(922)6-[address] [place], [place] 4846004-19-2023 15:04-0400 SaO2% (BldA) [Mass fraction]97 %DO Peri Tyson Work Phone: 1(864)[address]04-19-2023 15:04-0400 Systolic blood whfdzrwy842 mm[Hg]DO Periluis Tyson Work Phone: 1(795)[address] [place], [place] 4846003-27-2023 10:00-0400 Body ihmyst809.4 cmLulú Ruth Other [employer] Other 03-27-2023 10:00-0400Body mass index (BMI) [Ratio] 44.33 kg/u4WllwauLulú Ruth Other [employer] Other 03-27-2023 10:00-0400Body gkagtgemlss75.8 [degF]Lulú Ruth Other [employer] Other 03-27-2023 10:00-0400Body uoztjx256.97 kgLulú uRth Other [employer] Other 03-27-2023 10:00-0400Diastolic blood fkdseioh48 mm[Hg] Lulú Ruth Other [employer] Other 03-27-2023 10:00-8577OcQ8% (BldA) [Mass fraction]98 % Lulú Ruth Other [employer] Other 03-27-2023 10:00-0400Systolic blood mm[Hg] uLlú Ruth Other [employer] Other 01-30-2023 15:11-0500Diastolic blood jawawwxd38 mm[Hg] DO Peri Tyson Work Phone: [facility]01-30-2023 15:11-0500 Heart rate65 /minDO Peri [employer] Work Phone: [phone]-[facility]01-30-2023 15:11-0500 Inhaled oxygen flow rate4 L/minDO Peri Tyson Work Phone: 1([phone]-[facility]01-30-2023 15:11-0500 Respiratory rate18 /minDO Peri Tyson Work Phone: [facility]01-30-2023 15:11-0500 SaO2% (BldA) [Mass fraction]98 %DO Peri Tyson Work Phone: [facility]01-30-2023 15:11-0500 Systolic blood woizngxf808 mm[Hg]DO Peri Tyson Work Phone: [facility]01-30-2023 14:20-0500 Body reiofxerbhu30 [degF]DO Peri Tyson Work Phone: [phone]-[facility]01-25-2023 11:00-0500 Body unmvle064.4 cmGlanh Tyson Other [employer] Other [id number] 11:00-0500Body mass index (BMI) [Ratio] 45.66 kg/y8Xgtjva Tyson Other [employer] Other [id number] 11:00-0500Body zmbewq688.05 kgPeri Marbella Other [employer] Other 07-74720048-46-9417 11:00-0500Diastolic blood xpmskfif60 mm[Hg] Peri Marbella Other [employer] Other 70-13156356-73-5513 11:00-0500Respiratory rate20 /minGlanh Tyson Other [employer] Other 01-25-2023 11:00-1227BjL0% (BldA) [Mass fraction]99 % Peri Tyson Other [employer] Other [id number] 11:00-0500Systolic blood mjdvvveo116 mm[Hg] Peri Tyson Other [employer] Other 01-11-2023 10:55-0500Body cvwyzy995.4 cmDO Giovanni Josh Work Phone: [facility][phone][facility] 10:55-0500 Body xptazm410.3 kgDO Giovanni Josh Work Phone: 1(086)5-[address] [place], [place] 4846001-11-2023 10:55-0500 Diastolic blood rqyceaxt59 mm[Hg]DO Giovanni Moreno Work Phone: 1(475)9-[facility]01-11-2023 10:55-0500 Heart rate75 /Ramos Moreno Work Phone: 1(937)[address] [place], [place] 3013501-11-2023 10:55-0500 Inhaled oxygen flow rate5 L/Ramos Moreno Work Phone: [phone])[address] [place], [place] 3013501-11-2023 10:55-0500 Respiratory rate20 /Ramos Moreno Work Phone: 1(364)[address] [place], [place] 3013501-11-2023 10:55-0500 SaO2% (BldA) [Mass fraction]100 %DO Giovanni Moreno Work Phone: 1(688)[address] [place], [place] 3013501-11-2023 10:55-0500 Systolic blood emdtzubu636 mm[Hg]DO Giovanni Moreno Work Phone: [phone])[address] [place], [place] 3013510-24-2022 11:00-0400 Body ijqsfy795.4 cmPeri Tyson Other [employer] Other 10-24-2022 11:00-0400Body mass index (BMI) [Ratio] 46.59 kg/x1HlsokqPeri Tyson Other [employer] Other 10-24-2022 11:00-0400Body kekieq171.23 kgPeri Tyson Other [employer] Other 10-24-2022 11:00-0400Diastolic blood ygozccbp11 mm[Hg] Peri Tyson Other [employer] Other 10-24-2022 11:00-0400Respiratory rate20 /minPeri Tyson Other [employer] Other 10-24-2022 11:00-9105TxW1% (BldA) [Mass fraction]99 % Periluis Tyson Other [employer] Other 10-24-2022 11:00-0400Systolic blood mm[Hg] Peri Marbella Other [employer] Other 09-12-2022 14:30-0400Body ghaioc501.4 cmGlanh Tyson Other [employer] Other [id number] 14:30-0400Body mass index (BMI) [Ratio] 47.28 kg/r1Nephgmanh Tyson Other [employer] Other [id number] 14:30-0400Body uirqqf870.82 kgGlanh Tyson Other [employer] Other 09-12-2022 14:30-0400Diastolic blood yafefcyx61 mm[Hg] Periluis Tyson Other [employer] Other 09-12-2022 14:30-0400Respiratory rate20 /minGlanh Tyson Other [employer] Other 09-12-2022 14:30-9874ZxR9% (BldA) [Mass fraction]100 % Periluis Tyson Other [employer] Other 09-12-2022 14:30-0400Systolic blood uvvuihlr236 mm[Hg] Peri Marbella Other [employer] Other 07-13-2022 13:14-0400Body ogdsabsoxpl76 [degF]DO Giovanni Moreno Work Phone: [phone])[address] [place], [place] 3013507-13-2022 13:14-0400 Body tpgmwi602.67 kgDO Giovanni Moreno Work Phone: 1(336)[address] [place], [place] 3013507-13-2022 13:14-0400 Diastolic blood ocpsmkmn07 mm[Hg]DO Giovanni Moreno Work Phone: 1(973)[address] [place], [place] 3013507-13-2022 13:14-0400 Heart rate70 /Ramos Moreno Work Phone: 1(282)[address] [place], [place] 3013507-13-2022 13:14-0400 Respiratory rate16 /Ramos Moreno Work Phone: 1(895)[address] [place], [place] 3013507-13-2022 13:14-0400 SaO2% (BldA) [Mass fraction]97 %DO Giovanni Moreno Work Phone: 1(636)[address] [place], [place] 3013507-13-2022 13:14-0400 Systolic blood lydeefzp732 mm[Hg]DO Giovanni Moreno Work Phone: 1(377)[address] [place], [place] 3013507-11-2022 14:45-0400 Body .4 cmGiovanni Moreno Other [facility] Other 07-11-2022 14:45-0400Body mass index (BMI) [Ratio] 48.08 kg/k6EbffaGiovanni Moreno Other [employer] Other 07-11-2022 14:45-0400Body jhaiez618.68 kgGiovanni Moreno Other [employer] Other 07-11-2022 14:45-0400Diastolic blood ulkzsrrr58 mm[Hg] Giovanni [facility] Other [facility] Other 07-11-2022 14:45-0400Respiratory rate20 /minGiovanni Moreno Other [employer] Other 07-11-2022 14:45-9474TqD4% (BldA) [Mass fraction]99 % Giovanni Moreno Other [employer] Other 07-11-2022 14:45-0400Systolic blood ubvhlqjj599 mm[Hg] Giovanni Moreno Other [employer] Other 06-16-2022 11:50-0400Diastolic blood tcfmurim18 mm[Hg] DO Giovanni Moreno Work Phone: [phone]06-16-2022 11:50-0400 Heart rate75 /Ramos Moreno Work Phone: 1(719)430-[address] [place], [place] 4846006-16-2022 11:50-0400 Inhaled oxygen flow rate5 L/Ramos Moreno Work Phone: [phone])[address]06-16-2022 11:50-0400 Respiratory rate16 /Ramos Moreno Work Phone: [phone]06-16-2022 11:50-0400 SaO2% (BldA) [Mass fraction]100 %DO Giovanni Moreno Work Phone: [phone]-[facility]06-16-2022 11:50-0400 Systolic blood zpzywmqt181 mm[Hg]DO Giovanni Moreno Work Phone: 1(925)098-[address] [place], [place] 4846006-16-2022 09:07-0400 Body .4 cmDO Giovanni Moreno Work Phone: 1(533)488-[address] [place], [place] 4846006-16-2022 09:07-0400 Body mass index (BMI) [Ratio]48.2 kg/m2DO Giovanni Moreno Work Phone: [facility]06-16-2022 09:07-0400 Body nxlced309.03 kgDO Giovanni Moreno Work Phone: [facility]05-12-2022 15:00-0400 Body cmaezv017.4 cmStelma Mckeon Other [facility] [employer] Other 576923-03-0434 15:00-0400Body mass index (BMI) [Ratio] 49.21 kg/s2Xbnllx Zaky Other [facility] [employer] Other 05-12-2022 15:00-0400Body sllvfy592.31 kgShsharlalukas Mckeon Other [facility] [employer] Other 05-12-2022 15:00-0400Diastolic blood iiockghn81 mm[Hg] Nicko Mckeon Other [facility] Other 05-12-2022 15:00-6077XbR3% (BldA) [Mass fraction]97 % Nicko Mckeon Other [facility] [employer] Other 05-12-2022 15:00-0400Systolic blood jufjnlha304 mm[Hg] Nicko Mckeon Other [employer] Other 05-06-2022 10:08-0400Body .4 cmDO Giovanni Moreno Work Phone: [facility]04-27-2022 10:00-0400 Body mzkzii445.4 cmGiovanni Moreno Other [facility] [employer] Other 04-27-2022 10:00-0400Body mass index (BMI) [Ratio] 50.03 kg/a2PnfhfGiovanni Moreno Other [employer] Other 04-27-2022 10:00-0400Body twzlom898.21 kgGiovanni Moreno Other [employer] Other 04-27-2022 10:00-0400Diastolic blood dvezutke32 mm[Hg] Giovanni Moreno Other [employer] Other 04-27-2022 10:00-0400Respiratory rate20 /minGiovanni Moreno Other [employer] Other 04-27-2022 10:00-3933FiR2% (BldA) [Mass fraction]99 % Giovanni Moreno Other [employer] Other 04-27-2022 10:00-0400Systolic blood jfdgfear592 mm[Hg] Giovanni Moreno Other [employer] Other 04-11-2022 10:30-0400Body joobwt520.4 cmGiovanni Moreno Other [employer] Other 04-11-2022 10:30-0400Body mass index (BMI) [Ratio] 49.05 kg/v9RrbzgGiovanni Moreno Other [employer] Other 04-11-2022 10:30-0400Body gmcjyi220.94 kgGiovanni Moreno Other [employer] Other 04-11-2022 10:30-0400Diastolic blood qawtvmko02 mm[Hg] Giovanni Moreno Other [employer] Other 04-11-2022 10:30-0400Respiratory rate20 /minGiovanni Moreno Other [employer] Other 04-11-2022 10:30-4626XnA5% (BldA) [Mass fraction]99 % Giovanni Moreno Other [employer] Other 04-11-2022 10:30-0400Systolic blood mm[Hg] Giovanni Moreno Other [employer] Other 03-10-2022 10:45-0500Body kjkxga384.4 cmGiovanni Moreno Other [employer] Other 03-10-2022 10:45-0500Body mass index (BMI) [Ratio] 48.43 kg/y1DqzjuGiovanni Moreno Other [employer] Other 03-10-2022 10:45-0500Body pmiuwm606.49 kgGiovanni Moreno Other [employer] Other 03-10-2022 10:45-0500Diastolic blood rptxxbby08 mm[Hg] Giovanni Moreno Other [employer] Other 03-10-2022 10:45-0500Respiratory rate20 /minGiovanni Moreno Other [employer] Other 03-10-2022 10:45-4808FvE8% (BldA) [Mass fraction]99 % Giovanni Moreno Other [employer] Other 03-10-2022 10:45-0500Systolic blood fcyrnext404 mm[Hg] Giovanni Moreno Other [employer] Other 02-10-2022 10:30-0500Body gsyotv585.4 cmGiovanni Moreno Other [employer] Other 02-10-2022 10:30-0500Body mass index (BMI) [Ratio] 48.23 kg/w0YbymvGiovanni Moreno Other [employer] Other 02-10-2022 10:30-0500Body tvscyw354.04 kgGiovanni Moreno Other [employer] Other 02-10-2022 10:30-0500Diastolic blood ihiqvmoh15 mm[Hg] Giovanni Moreno Other [employer] Other 02-10-2022 10:30-0500Respiratory rate20 /minGiovanni Moreno Other [employer] Other 02-10-2022 10:30-0241KuI8% (BldA) [Mass fraction]99 % Giovanni Moreno Other [employer] Other 02-10-2022 10:30-0500Systolic blood mm[Hg] Giovanni Moreno Other [employer] Other 01-19-2022 14:15-0500Body .4 cmGiovanni Moreno Other [employer] Other 01-19-2022 14:15-0500Body mass index (BMI) [Ratio] 48.23 kg/x6IdrdqGiovanni Moreno Other [employer] Other 01-19-2022 14:15-0500Body csaghl778.04 kgGiovanni Moreno Other [employer] Other 01-19-2022 14:15-0500Diastolic blood baypcutu65 mm[Hg] Giovanni Moreno Other [employer] Other 01-19-2022 14:15-0500Respiratory rate20 /minGiovanni Moreno Other [employer] Other 01-19-2022 14:15-6459JjU5% (BldA) [Mass fraction]99 % Giovanni Moreno Other [employer] Other 01-19-2022 14:15-0500Systolic blood mm[Hg] Giovanni Moreno Other [employer] Other 12-21-2021 11:00-0500Body lycwmy046.4 cmGiovanni Moreno Other [employer] Other 12-21-2021 11:00-0500Body mass index (BMI) [Ratio] 47.84 kg/c0PjohfGiovanni Moreno Other [employer] Other 12-21-2021 11:00-0500Body liexqo366.13 kgGiovanni Moreno Other [employer] Other 12-21-2021 11:00-0500Diastolic blood pilccazs91 mm[Hg] Giovanni Moreno Other [employer] Other 12-21-2021 11:00-0500Respiratory rate20 /minGiovanni Moreno Other [employer] Other 12-21-2021 11:00-9982UhW0% (BldA) [Mass fraction]99 % Giovanni Moreno Other [employer] Other 12-21-2021 11:00-0500Systolic blood zfojfnpl931 mm[Hg] Giovanni Moreno Other [employer] Other 11-22-2021 10:30-0500Body yxvdgv128.4 cmDomenico Whitmore Other [employer] Other 11-22-2021 10:30-0500Body mass index (BMI) [Ratio] 46.87 kg/y6ClqvpchDomenico Whitmore Other [employer] Other 11-22-2021 10:30-0500Body laejzmwpxap47.3 [degF] Domenico Whitmore Other [employer] Other 11-22-2021 10:30-0500Body syslab926.86 kgJegay Whitmore Other [employer] Other 11-22-2021 10:30-0500Diastolic blood uzkprevv62 mm[Hg] Domenico Whitmore Other [employer] Other 11-22-2021 10:30-1978MfA7% (BldA) [Mass fraction]99 % Domenico Whitmore Other [employer] Other 11-22-2021 10:30-0500Systolic blood tdjsyoyx35 mm[Hg] Domenico Bolivarflora Other [facility] [employer] Other Encounters Encounter DateEncounter TypeCare ProviderFacilityStart: 41-45-3263cpkdjsyvlmYhw ReeseFacility:[facility] End: 79-74-9132skwtebwrhcOtzskn Luis Tyson DO Work Phone: [phone]-Udcbbv Center AmbulatoryStart: 02-20-2025 End: 91-78-0715Ptqjalvsonia [facility] Work Phone: Start: 02-18-2025 End: 45-93-4641Ptjmsneb Result EncounterRoxane Bills MD Work Phone: noms External Department UnsolicitedStart: 02-18-2025 End: 93-85-9795Gsfxubvt Result EncounterRoxane Bills MD Work Phone: noms External Department UnsolicitedStart: 02-13-2025 End: 71-53-1161Npuivbes Result EncounterRoxane Bills MD Work Phone: noms External Department UnsolicitedStart: 02-13-2025 End: 69-21-4811Ehwlsnqb Result EncounterRoxane Bills MD Work Phone: noms External Department UnsolicitedStart: 02-13-2025 End: 36-15-0355cdawpiouzdMavijf A Tyson DO Work Phone: -[facility]Start: 02-13-2025 End: 61-60-5458Frraoo A Tyson DO-[facility] [place] Work Phone: Start: 02-10-2025 End: 64-89-5914elnriqsoxgOvuukq A Tyson DO Work Phone: -[facility] [place]Start: 02-10-2025 End: 57-51-4365Uivdnpc encounter procedureGlanh Tyson [facility]otart: 02-10-2025 End: 46-27-9239Eyghuf A [facility] Frank Work Phone: Start: 02-08-2025 End: 35-00-4652ohxbxkadhyHmgrlf A [facility] Work Phone: [phone]-[facility] Center AmbulatoryStart: 02-08-2025 End: 20-54-9939Jlc Reese M MD-[facility] Amb[facility] Work Phone: Start: 02-06-2025 End: 54-72-5634Xskfrhke Result EncounterRoxane Bills MD Work Phone: noms External Department UnsolicitedStart: 02-06-2025 End: 67-58-8674Xgoctblt Result EncounterRoxane Bills MD Work Phone: noms External Department UnsolicitedStart: 01-18-2025 End: 50-11-7585yclqivjfspKsshgt A [facility] Work Phone: [facility] Work Phone: Start: 01-18-2025 End: 36-47-3041Qzgqxwj encounter procedureRoxane Rojo MD-[facility] Ambulatory Work Phone: Start: 01-18-2025 End: 76-54-8056Okl Reese M MD-[facility] Amb[facility] Work Phone: Start: 01-17-2025 End: 06-65-5051Jdnbdutf Result EncounterRoxane Bills MD Work Phone: noms External Department UnsolicitedStart: 01-17-2025 End: 99-70-0308Yysngmtt Result EncounterRoxane Bills MD Work Phone: noms External Department UnsolicitedStart: 12-27-2024 End: 45-55-4391Yefvgsqkvq and management of inpatientGloria A [facility] Work Phone: [facility] Work Phone: Start: 66-85-5373Idn-patient / Non-visitMichael S Blank MD-[facility] Infect Dis Work Phone: Start: 10-46-2784Nlgoq Prasad MD-[facility] Work Phone: Start: 12-26-2024 End: 75-16-8135Pxugovqs Result EncounterRoxane Bills MD Work Phone: noms External Department UnsolicitedStart: 12-26-2024 End: 93-41-0316Cjiabuyg Result EncounterRoxane Bills MD Work Phone: noms External Department UnsolicitedStart: 12-26-2024 End: 90-09-9411Lnfjri Tyson DO Work Phone: [phone]-Rpsckuqrt Room Work Phone: Start: 12-26-2024 End: 09-96-1945Gdnacabcu department patient visitGloria Luis [facility] DO Work Phone: [facility] Work Phone: Start: 24-58-7178Efm Reese M MD-[facility] Acute Work Phone: Start: 12-21-2024 End: 82-72-5608Ubjknbob Result EncounterRoxane Bills MD Work Phone: noms External Department UnsolicitedStart: 12-21-2024 End: 46-74-3066Mbthgopr Result EncounterRoxane Bills MD Work Phone: noms External Department UnsolicitedStart: 12-21-2024 End: 20-59-1136abstivnezuUbbrwq A [facility] Work Phone: [facility] Work Phone: Start: 12-21-2024 End: 74-04-4842Ocdomnm encounter Nacho Rojo MD-[facility] Ambulatory Work Phone: Start: 12-21-2024 End: 72-89-3991Ygi Reese M [facility] Work Phone: Start: 12-19-2024 End: 32-26-2959Iueomv Maricruz Tsai DPM Work Phone: n[facility] PodiatryStart: 12-19-2024 End: 88-20-6040Otdhnj Maricruz Tsai DPM Work Phone: noms [facility] PodiatryStart: 12-19-2024 End: 11-16-3179Rcojhkix Result EncounterRoxane Bills MD Work Phone: noms External Department UnsolicitedStart: 12-19-2024 End: 24-72-6010Wgwembf encounter procedureMack Tsai DPM Work Phone: noms [facility] Charles PodiatryComment on above: Diabetes mellitus due to underlying condition with diabetic polyneuropathy, with long-term current use of insulin (HCC) (Primary Dx); Pain due to onychomycosis of toenails of both feet; Xerosis cutisStart: 12-19-2024 End: 35-88-2961gyvhizwmxtPAPEYSDZ A BROWNNot AvailableStart: 12-13-2024 End: 14-82-0458Ppknaciv Result EncounterRoxane Bills MD Work Phone: noms External Department UnsolicitedStart: 12-13-2024 End: 88-82-6430Knlxtsxd Result EncounterRoxane Bills MD Work Phone: noms External Department UnsolicitedStart: 12-07-2024 Registered Shannan GILL CredibleStart: 12-07-2024 Truong GILL CredibleStart: 89-72-3478pjdocbuwtsFlrongyhhpu AbdelazizFacility:[facility] Hospitaltart: 12-06-2024 End: 90-07-9715Mjnhxtpy Result EncounterRoxane Bills MD Work Phone: noms External Department UnsolicitedStart: 12-06-2024 End: 84-73-2308Rwbqntgx Result EncounterRoxane Bills MD Work Phone: noms External Department UnsolicitedStart: 12-06-2024 End: 79-17-5274ksyyyqvglsVwofgy A Tyson DO Work Phone: [facility] Work Phone: Start: 12-06-2024 End: 51-70-6912Tmunlap encounter procedureSugey Cummins NP-C-[facility] Center Ambulatory Work Phone: Start: 12-06-2024 End: 23-85-5581Brflqxs E Morris NP-C-[facility] Center Ambulatory Work Phone: Start: 74-88-9038Zjs Sanju Rojo MD-[facility] Center Acute Work Phone: Start: 12-05-2024 End: 50-25-1672Eazrhqwp Result EncounterRoxane Bills MD Work Phone: noms External Department UnsolicitedStart: 12-05-2024 End: 68-73-2462Xbbdsfcq Result EncounterRoxane Bills MD Work Phone: noms External Department UnsolicitedStart: 11-28-2024 End: 89-20-8715Faljdtez Result EncounterRoxane Bills MD Work Phone: noms External Department UnsolicitedStart: 11-28-2024 End: 71-47-6932Igbtnkof Result EncounterRoxane Bills MD Work Phone: noms External Department UnsolicitedStart: 11-28-2024 End: 20-09-8107Ksiigxrsd encounterJeannie Aguilar MD Work Phone: noms Frank EndocrinologyComment on above:Med Refill Start: 11-22-2024 End: 67-59-7543itkyzymokaEcmhrw A Tyson DO Work Phone: [facility] Work Phone: Start: 11-22-2024 End: 09-86-2817Aeikrqj encounter procedureCakathrine Cummins NP-Ion-[facility] Center Ambulatory Work Phone: Start: 11-22-2024 End: 76-18-2913Jtnovcgsonia HOLLAND-[facility] Center Ambulatory Work Phone: Start: 24-81-2263Mio Reese M MD-[facility] Center Acute Work Phone: Start: 11-21-2024 End: 30-27-8737Cnwhfvfq Result EncounterRoxane Bills MD Work Phone: noms External Department UnsolicitedStart: 11-21-2024 End: 76-54-1636Xkizwgkz Result EncounterRoxane Bills MD Work Phone: noms External Department UnsolicitedStart: 11-14-2024 End: 58-96-2165Pbaoncorville Aguilar MD Work Phone: noms Frank EndocrinologyStart: 11-14-2024 End: 74-70-2816Buypxrrosario Aguilar MD Work Phone: noms Frank EndocrinologyStart: 11-14-2024 End: 75-01-4088Cekiug outpatient visit 25 minutesJeannie Aguilar MD Work Phone: noms Frank EndocrinologyComment on above:Vitamin D deficiency (Primary Dx); Type 2 diabetes mellitus with hyperglycemia, with long-term current use of insulin (HCC); Primary hypertension ; Hyperlipemia, mixed ; Insulin long-term use (HCC); Encounter for dietary consultation; Stage 3b chronic kidney disease ([facility]-HCC)Start: 11-14-2024 End: 42-30-3767euggehflmnDWPKR F SABBAGHNot AvailableStart: 11-10-2024 End: 81-94-5518Usvnljxj Result EncounterRoxane Bills MD Work Phone: noms External Department UnsolicitedStart: 11-10-2024 End: 98-29-1289Nsgydnjp Result EncounterRoxane Bills MD Work Phone: NOWI External Department UnsolicitedStart: 11-01-2024 End: 32-01-3434vrmigvvzlrYibvxq A [facility] DO Work Phone: [facility] Work Phone: Start: 11-01-2024 End: 44-81-9990Zsgjpix encounter procedureBertha Martinez -[facility] Amb[facility] Work Phone: Start: 11-01-2024 End: 78-36-3657Lqfzr Busch RN-[facility] Amb[facility] Work Phone: Start: 10-27-2024 End: 20-54-7486nyqxvdoiidHipzfd A [facility] Work Phone: [facility] Work Phone: Start: 10-27-2024 End: 70-35-8008Ibqvrwk encounter procedureRoxane Rojo [facility] Work Phone: Start: 10-27-2024 End: 58-45-5544Ima Reese M [facility] Work Phone: Start: 52-95-7836Rhkkufpdpk RecurringTruong GILL CredibleStart: 62-22-2766Njjksxxmxsylázaro [employer] Start: 10-17-2024 End: 95-51-8752wptottkyzoByegijr Vytautas Giedraitis MDFacility:[facility] Start: 10-06-2024 End: 77-33-4552hdhshfmwzmTzmdxs A [facility] DO Work Phone: [facility] Work Phone: Start: 10-06-2024 End: 30-94-4174Shecowz encounter procedureRoxane Rojo [facility] Work Phone: Start: 10-06-2024 End: 35-45-1509Cpz Reese M [facility] Work Phone: Start: 10-05-2024 End: 14-11-6437Lmwikqqh Result EncounterRoxane Bills MD Work Phone: noms External Department UnsolicitedStart: 10-05-2024 End: 44-65-2176Irlnjwzn Result EncounterRoxane Bills MD Work Phone: noms External Department UnsolicitedStart: 09-30-2024 End: 97-79-2949Xvrdbu flowsKeon Smith Brown DPM Work Phone: noms [place] PODStart: 09-30-2024 End: 55-56-5114Hyrnqk flowsriaNickaleb A Brown DPM Work Phone: noms [place] PODStart: 09-30-2024 End: 44-33-4390Anlmaqx encounter procedureMack Tsai DPM Work Phone: noms [place] PODComment on above:Diabetes mellitus due to underlying condition with diabetic polyneuropathy, with long-term current use of insulin (HCC) (Primary Dx); Pain due to onychomycosis of toenails of both feet; Xerosis cutisStart: 09-30-2024 End: 10-94-5063ddueixhdtoWXAFQAGK A BROWNNot AvailableStart: 09-26-2024 End: 13-98-3462ijeyzeeinlNpzzdav Vytautas Giedraitis Facility:[facility] Start: 09-19-2024 End: 87-35-0820Imejuisl Result EncounterRoxane Bills MD Work Phone: noms External Department UnsolicitedStart: 09-19-2024 End: 38-93-8749Lyepdgwg Result EncounterRoxane Bills MD Work Phone: noms External Department UnsolicitedStart: 09-19-2024 End: 45-86-6545Helcdrlwp to same day surgery Kayli Rojo MD-[facility] [place] Work Phone: Start: 09-19-2024 End: 96-08-1315Aub Reese M MD-[facility] [place] Work Phone: Start: 09-19-2024 End: 99-89-6076kvqspucchmTrj ReeseFacility:[facility] Start: 08-31-2024 End: 52-29-1652Bobvdqx encounter procedureRoxane Rojo MD-[facility] Amb[facility] Work Phone: Start: 08-31-2024 End: 06-80-9807Kah Reese M MD-[facility] Amb[facility] Work Phone: Start: 08-25-2024 End: 88-82-1439Ldipoq flowsBradleyCoDa [employer]rapeutics Alexys [employer] DO Work Phone: noms PULMStart: 08-25-2024 End: 49-67-6330Uyglwb flowsheetLejavy Reardon [employer] DO Work Phone: noms PULMStart: 08-25-2024 End: 36-09-5829Jrfuvo outpatient visit 15 minutesLejavy Reardon [employer] DO Work Phone: noms PULMComment on above:Chronic obstructive pulmonary disease, unspecified COPD type (CMS/HCC) (Primary Dx); Obstructive sleep apnea syndromeStart: 08-25-2024 End: 93-33-0311djbvdbtzkwAVKEMG K STRACKNot AvailableStart: 08-23-2024 End: 58-33-5176Wfobupre Result EncounterRoxane Bills MD Work Phone: noms External Department UnsolicitedStart: 08-23-2024 End: 54-35-1313Qvxlbkxq Result EncounterRoxane Bills MD Work Phone: [facility] External Department UnsolicitedStart: 08-22-2024 End: 41-86-5288Mptldcorville Aguilar MD Work Phone: [facility] ENDOCRINOLOGYStart: 08-22-2024 End: 40-19-3953Ygjsljrosario Aguilar MD Work Phone: [facility] ENDOCRINOLOGYStart: 08-22-2024 End: 10-20-0346Lmovle outpatient visit 25 minutesJeannie Aguilar MD Work [...] diabetes mellitus with hyperglycemia (CMS/HCC)Start: 08-22-2024 End: 77-79-5250mgatygjaleVLDWX F SABBAGHNot AvailableStart: 08-15-2024 End: 41-41-5904lcymbmepuzBwbkuovFadumo Ramos MDFacility:[facility] Start: 08-11-2024 End: 28-31-7334Yxnnjar encounter procedureGloria Tyson DO Work Phone: [facility]art: 08-11-2024 End: 98-00-9024crgfrfylrrZaijxb Luis Tyson DO Work Phone: [facility] Work Phone: Start: 08-08-2024 End: 50-80-6042fenohnmuloJmhofh Luis Tyson DO Work Phone: [facility] Work Phone: Start: 08-08-2024 End: 23-15-3781Lmjwkrm encounter procedureGloria Tyson DO Work Phone: [facility] [place] Work Phone: Start: 07-30-2024 End: 31-40-3067JlmjubNgstcf K Strack DO Work Phone: noms PULMComment on above:Chronic obstructive pulmonary disease, unspecified COPD type (CMS/HCC)Start: 58-88-4703Hkqykjdlpl RecurringGloria Tyson DO Work Phone: [facility]- CredibleStart: 06-28-2024 End: 03-43-0572rsxkftakmsJVCSSMOA A BROWNNot AvailableStart: 05-25-2024 End: 62-27-6771Jdvxvh Feli Aguilar MD Work Phone: noms ENDOCRINOLOGYStart: 05-25-2024 End: 18-95-7671Oylmor Feli Aguilar MD Work Phone: noms ENDOCRINOLOGYStart: 05-25-2024 End: 47-86-7832Phbcct outpatient visit 25 minutesJeannie Aguilar MD Work Phone: noms ENDOCRINOLOGYComment on above:Type 2 diabetes mellitus with hyperglycemia, with long-term current use of insulin (CMS/[facility]) (Primary Dx); Vitamin D deficiency; Primary hypertension (CMS/HCC); Hyperlipemia, mixed (CMS/HCC); Insulin long-term use (CMS/[facility]); Encounter for dietary consultation; Stage 3b chronic kidney disease (HCC) (CMS/[facility]); Class 3 severe obesity due to excess calories with serious comorbidity and body mass index (BMI) of45.0 to 49.9 in adult (CMS/HCC); Type 2 diabetes mellitus with hyperglycemia ([facility])Start: 05-25-2024 End: 55-06-9551aawvixrfpgMFZYU F SABBAGHNot AvailableStart: 04-18-2024 End: 48-67-7446xlwaguvunhPmjeyjraqxa M Germain DO Work Phone: [facility] Work Phone: Start: 04-18-2024 End: 94-31-1876Nxaiwzs encounter procedureChristopher Groves DO Work Phone: [facility] Start: 04-15-2024 End: 00-95-2448Zscmtmorville Tsai DPM Work Phone: n[facility] [place] PODStart: 04-15-2024 End: 55-67-3711Wocipm flowsheetMack Tsai DPM Work Phone: [facility] [place] PODStart: 04-15-2024 End: 30-85-1050Hdockt outpatient visit 15 minutesMack Tsai DPM Work Phone: noms [place] PODComment on above:Xerosis cutis (Primary Dx); Diabetes mellitus due to underlying condition with diabetic polyneuropathy, with long-term current use of insulin (CMS/HCC); Pain due to onychomycosis of toenails of both feetStart: 04-15-2024 End: 23-13-6978axyllbyaqjVAAEBHOY A BROWNNot AvailableStart: 03-21-2024 Registered RecurringChristopher Lyleett DO Work Phone: [facility] CredibleStart: 03-20-2024 End: 36-90-8468OvswtfCqzrjGiana Aguilar MD Work Phone: noms ENDOCRINOLOGYComment on above:Type 2 diabetes mellitus with hyperglycemia (CMS/HCC)Start: 03-07-2024 End: 43-31-9328Ygoppah encounter procedureChristopher Germain DO Work Phone: [facility] [place] Work Phone: Start: 54-30-4193Csupjkycjg RecurringGloria Tyson DO Work Phone: [facility] Work Phone: Start: 03-02-2024 End: 40-96-1698jmxivjhnyeAkwheu Luis Tyson DO Work Phone: [facility] Work Phone: Start: 03-02-2024 End: 72-60-1316Mubbmyx encounter procedureGloria Tyson DO Work Phone: [facility] Work Phone: Start: 02-24-2024 End: 36-71-6458Iiyrfiru Result EncounterRoxane Bills MD Work Phone: noms External Department UnsolicitedStart: 02-24-2024 End: 82-69-4847Iypetqcv Result EncounterRoxane Bills MD Work Phone: noms External Department UnsolicitedStart: 02-24-2024 Registered RecurringGloria Tyson DO Work Phone: [facility] Work Phone: Start: 61-55-9198Hxhdhkfdlh RecurringGloria Tyson DO Work Phone: [facility] CredibleStart: 02-09-2024 End: 14-43-5612omairpyibgCP Peri A Tyson Work Phone: [facility] Work Phone: Start: 02-09-2024 End: 56-00-8820Wfzquaf encounter procedureDO Peri Tyson Work Phone: [facility] Work Phone: Start: 02-02-2024 End: 47-98-7507Hnmhoh flowsheetMack Tsai DPM Work Phone: noMS [place] PODStart: 02-02-2024 End: 92-86-6768Ffgihj flowsheetMack Tsai DPM Work Phone: no[place] PODStart: 21-66-9056Xokomygluf RecurringDO Peri Tyson Work Phone: [facility] Work Phone: Start: 02-02-2024 End: 79-46-1945Kvhqrzz encounter procedureMack Tsai DPM Work Phone: noMS [place] PODComment on above:Diabetes mellitus due to underlying condition with diabetic polyneuropathy, with long-term current use of insulin (CMS/HCC) (Primary Dx); Pain due to onychomycosis of toenails of both feetStart: 02-02-2024 End: 31-09-3862mgkkmobsoxIBYSSHEZ A BROWNNot AvailableStart: 01-20-2024 End: 66-87-6527Iilobb Feli Aguilar MD Work Phone: N[facility]S ENDOCRINOLOGYStart: 01-20-2024 End: 07-34-8156Vdtnly Feli Aguilar MD Work Phone: noMS ENDOCRINOLOGYStart: 01-20-2024 End: 56-35-4789Qkkrru outpatient visit 25 minutesJeannie Aguilar MD Work Phone: noMS ENDOCRINOLOGYComment on above:Type 2 diabetes mellitus with hyperglycemia, with long-term current use of insulin (CMS/HCC) (Primary Dx); Vitamin D deficiency; Primary hypertension (CMS/HCC); Hyperlipemia, mixed (CMS/HCC); Insulin long-term use (CMS/HCC); Encounter for dietary consultation; Stage 3b chronic kidney disease (HCC) (CMS/HCC); Class 3 severe obesity due to excess calories with serious comorbidity and body mass index (BMI) of45.0 to 49.9 in adult (CMS/HCC)Start: 01-20-2024 End: 24-71-1776rxnmdczjosIUKAOAlessia Chavarria AvailableStart: 01-14-2024 End: 36-82-2605Hbwvis PopsetPelon WEISSENHAUS Work Phone: [facility]S PULMStart: 01-14-2024 End: 10-67-9246Bubofa PopsetBradleyCREAM Entertainment [employer] Work Phone: N[facility]S PULMStart: 01-14-2024 End: 57-21-6465Eybxpk outpatient visit 15 minutesSvetlana Reardon [facility] Work Phone: noMS PULMComment on above:Chronic obstructive pulmonary disease, unspecified COPD type (CMS/HCC) (Primary Dx); Obstructive sleep apnea syndromeStart: 01-14-2024 End: 14-95-9196gyypjhdgmeTPSKKW K STRACKNot AvailableStart: 01-12-2024 End: 77-51-6472MqnrqiHhqagebg A Brown DPM Work Phone: n[facility] [place] PODComment on above:Diabetes mellitus due to underlying condition with diabetic polyneuropathy, with long-term current use of insulin ([facility])Start: 12-30-2023 End: 85-52-4708lokbksmlsoFmvrps A Tyson DO Work Phone: [facility] Work Phone: Start: 12-30-2023 End: 11-90-9320Qlkauhqtda RecurringGloria [facility] DO Work Phone: [facility]-[address] [facility] Start: 64-85-3666Iwnfplnriz RecurringDO Peri Tyson Work Phone: [phone] [place] [address]-[address] Therapy Start: 59-95-0221Inanfueexo RecurringDO Prei Tyson Work Phone: [facility]- CredibleStart: 09-02-2023 End: 96-05-5261tmeglkgdkdEJ Peri A Tyson Work Phone: [phone]-[facility] Work Phone: Start: 09-02-2023 End: 75-81-1443Fgvxrhw encounter procedureDO Peri Tyson Work Phone: [facility] Work Phone: Start: 73-94-4544Zwiplojeez RecurringDO Peri Tyson Work Phone: [facility] Acute Work Phone: Start: 08-24-2023 End: 98-64-6119xasjogxhydCG Peri A [facility] Work Phone: [phone] [place] [address] Work Phone: Start: 08-24-2023 End: 44-69-4178Wiclmdw encounter procedureDO Peri Tyson Work Phone: [facility]-Lab [place] Work Phone: Start: 08-19-2023 End: 34-33-6195fulsugwxlfAO Peri A Tyson Work Phone: [facility] Work Phone: Start: 08-19-2023 End: 52-76-0644Adqjcqx encounter procedureDO Peri Tyson Work Phone: [facility] Work Phone: Start: 08-12-2023 End: 39-40-1944Ouunfas encounter procedureDO Peri Tyson Work Phone: [facility]: 08-10-2023 End: 71-58-5493jgotsmnmikKL Peri A Tyson Work Phone: [facility] Work Phone: Start: 08-10-2023 End: 62-69-4685Cobpaqc encounter procedureDO Peri Tyson Work Phone: [facility] Work Phone: Start: 07-31-2023 End: 77-21-5946nbzlqyrikrWO Peri A Tyson Work Phone: [facility] Work Phone: Start: 07-31-2023 End: 24-61-0856Nhrpgqb encounter procedureDO Peri Tyson Work Phone: [facility]: 07-29-2023 End: 44-32-5543idciuzwcnzPJ Peri A Tyson Work Phone: [facility] Work Phone: Start: 07-29-2023 End: 53-04-4682Ongwajs encounter procedureDO Periluis Tyson Work Phone: [facility] Vascular Surgery Work Phone: Start: 24-80-5010Suy-patient / Non-visitDO Peri Tyson Work Phone: [facility] [employer] Work Phone: Start: 07-01-2023 End: 14-00-3999ukiplqaavdEC Peri Smith Tyson Work Phone: [facility] Work Phone: Start: 07-01-2023 End: 81-24-6564Ugpdlwi encounter procedureDO Peri Tyson Work Phone: [facility] Vascular Surgery Work Phone: Start: 73-95-2000Enzyuiqqqp RecurringDO Peri Marbella Work Phone: [facility] CredibleStart: 05-27-2023 End: 89-68-5972kpjjsbdicqJD Brenden Groves Work Phone: [facility] Work Phone: Start: 05-27-2023 End: 66-73-5207Gfoenxl encounter procedureDO Brenden Groves Work Phone: [facility] Vascular Surgery Work Phone: Start: 05-22-2023 End: 66-10-2105ldoxhvleywRemkax Marbella Other [facility] [employer] Other Start: 20-71-1190Qnkaeeanz encounterGloria MarbellaAthol Hospital SanduskyStart: 74-81-9838UyvptkIwbbpusi A Brown DPM Work Phone: noms [place] PODComment on above:Diabetes mellitus due to underlying condition with diabetic polyneuropathy, with long-term current use of insulin ([facility])Start: 05-12-2023 End: 21-33-6996kbqpfwtyvgVZ Peri Smith Marbella Work Phone: [facility] Work Phone: Start: 05-12-2023 End: 75-51-4693Auwbvvvvak RecurringDO Whitt Marbella Work Phone: [facility]-Wound Care [place] Work Phone: Start: 05-08-2023 End: 64-94-1670ckqgxajllhUQ Peri Smith Marbella Work Phone: [facility] Work Phone: Start: 05-08-2023 End: 26-87-8040Oqmbstz encounter procedureDO Peri Marbella Work Phone: [facility]-Ultrasound [place] Work Phone: Start: 99-17-4466Plbhbbipbx Recurring Peri Marbella Work Phone: [facility]-Wound Care [place] Work Phone: Start: 04-20-2023 End: 57-94-2517fiowiqcxddWovkja Tyson Other [employer] Other Start: 44-69-7675Hcgjpltgz encounterGloria [facility] Clevelandart: 04-15-2023 End: 52-42-8666fejeiaxsfyHuvaps [facility] Other [employer] Other Start: 42-44-6662Xaeugirdq encounterGloria [facility] CenteryStart: 03-24-2023 End: 75-92-1374ljjtayuwmxAkyova Johns Other [employer] Other Start: 79-90-0471Hkjcdwccg encounterGloria [facility] SandtampayStart: 03-19-2023 End: 66-69-6681ewwhmmetfyCsbnyt Johns Other [employer] Other Start: 08-47-3130Rltwehidk encounterGloria [facility] SandtampayStart: 49-19-5197Macznqikfl RecurringDO Rayshawnpankai Germain Work Phone: [facility]- CredibleStart: 03-04-2023 End: 39-53-1777yawezxanfcFP Peri A Marbella Work Phone: [facility] Work Phone: Start: 03-04-2023 End: 14-12-1035Svkklcwnun RecurringDO Peri Tyson Work Phone: [facility] Work Phone: Start: 02-23-2023 End: 45-51-7576eeprcrokqnAyqbqn Johns Other [employer]Nu[employer] Other Start: 14-98-4919Xbciillqv encounterGloria [facility] Medicine CenteryStart: 02-19-2023 End: 35-43-0396Mfhtrzz encounter procedureDO Peri Marbella Work Phone: [facility]-Ultrasound [place] Work Phone: Start: 02-12-2023 End: 78-53-0658zgzngbirylGzlvty Johns Other [employer]Nu[employer] Other Start: 91-78-2071Hlnxshbsg encounterGloria [facility] SanduskyStart: 02-12-2023 End: 00-27-5424Qubctxhth to same day surgery centerDO Peri Tyson Work Phone: [facility]-CT Scan [place] Work Phone: Start: 04-91-2811Czmjvvycha RecurringDO Peri Tyson Work Phone: [facility]-BH CredibleStart: 02-06-2023 End: 28-32-1880rqqiaxugzkPyidvh [facility] Other [employer] Other Start: 52-92-6696Evzxvaqcz for general adult medical examination without abnormal findingsGloria [facility] Start: 22-16-5201Dqdipycl preventive med est patient 40-64yrsGloria [facility] Clevelandart: 33-06-2141Ywplgrpyj encounterGloria [facility] Clevelandart: 02-04-2023 End: 95-29-3923prhamytasyGE Peri Luis Tyson Work Phone: [facility] Work Phone: Start: 02-04-2023 End: 54-38-6906Glfzghx encounter procedureDO Peri Tyson Work Phone: [facility]-MRI [address] Work Phone: Start: 02-03-2023 End: 98-72-7789afneetujmhCbqtvh Tyson Other [employer] Other Start: 99-31-5391Wiwycmcmq encounterGloria [facility] Clevelandart: 01-29-2023 End: 14-40-1371sqxopjafynMM Peri A Tyson Work Phone: [facility] Work Phone: Start: 01-29-2023 End: 78-28-0015Dfoxprehsj RecurringDO Peri Tyson Work Phone: [facility]-Cancer Center Work Phone: Start: 01-21-2023 End: 51-63-5248djthkfodkuOnlyjj Johns Other [employer] Other Start: 29-84-3228Iicrnxkxp encounterGloria [facility] Family [facility] HospitalyStart: 01-19-2023 End: 87-42-2189trwzumcjmrExxwfk Tyson Other [employer] Other Start: 03-53-9839Vibogntco encounterGloria JohnsS[facility] Family Medicine [place] HealthyStart: 01-15-2023 End: 54-56-6266tntduswqjmTgjbjkv [employer] Other [employer] Other start: 69-83-8169Warlyxmnd encounterDeborah BladesFPG Referral CoordinatorStart: 01-12-2023 End: 79-18-9971rqujzpxjlmRytxlkn Bl[employer] Other [employer] Other start: 44-28-3267Tkusea outpatient new 45 minutes Patsy BladesFPG [facility] NeurosurgeryStart: 78-81-9093Bfnxlpqws encounter Patsy BladesFPG [facility] NeurosurgeryStart: 12-24-2022 End: 73-22-6106cytyzuqrjtZcolmg Tyson Other [employer] Other Start: 35-70-1305Ixzlnggri encounterGloria JohnsS[facility] Family [facility] HospitalyStart: 12-18-2022 End: 67-48-0035Vrxayakjn to same day surgery Joanne Tyson Work Phone: [facility] Main CampusStart: 12-18-2022 End: 17-55-0795pzvacwncsnXJ Peri A [facility] Work Phone: [facility] Work Phone: Start: 12-16-2022 End: 15-60-7862smuncjzctbTkqlgk Tyson Other [employer] [facility] [employer] Other Start: 76-21-9276Gvouxkitg encounterGloria [facility] Clevelandart: 12-10-2022 End: 92-64-8105slzvdqadjgNhuebl [facility] Other [employer] Powerboth[facility] [employer] Other Start: 11-88-0697Lpdtomczm encounterGloria [facility] Clevelandart: 12-05-2022 End: 14-77-9385Bxgqunmb ReferredDO Peri [facility] Work Phone: [phone] [place] [address] Avg-Axg-Gqflhrcn Testing Work Phone: Start: 12-05-2022 End: 50-31-4816Fzkjuqs encounter procedureDO Peri [facility] Work Phone: [phone]-[facility] Fji-Age-Vxmwdgkm Testing Work Phone: Start: 12-04-2022 End: 50-88-4089itimygayupKS Peri A [facility] Work Phone: [facility] Work Phone: Start: 12-04-2022 End: 35-74-9161Kmpqyvm encounter procedureDO Peri [facility] Work Phone: [phone]-[facility]-MRI [place] Work Phone: Start: 11-20-2022 End: 87-20-1381ciwudpyhshIU Peri A [facility] Work Phone: [phone] [place] [address] Ctr Work Phone: Start: 11-20-2022 End: 21-94-3076Preyywoknv RecurringDO Periluis Tyson Work Phone: [facility]-Physical Therapy [facility] Memorialtart: 11-17-2022 End: 56-91-2710jhncvwcsfyCqsluw Tyson Other [employer] Other Start: 95-11-8511Rueqkvzct encounterGloria JohnsS[facility] Family [facility] [place]kyStart: 10-27-2022 End: 37-85-3150zoanghirvjOgijka Tyson Other [facility]both[facility] [employer] Other Start: 45-49-3630Rktihnzex encounterGloria JohnsS[facility] Family [facility] SandtampayStart: 10-13-2022 End: 24-02-7807xywzftihuiAeehex Tyson Other [employer] Other Start: 47-93-1775Lzhugsclu encounterGloria [facility] Family [facility] SandtampayStart: 10-10-2022 End: 79-91-4299rxgfwtlctjXsygcy Tyson Other [employer] Other Start: 35-19-1337Wdblpurik encounterGloria JohnsS[facility] Family Medicine SandtampayStart: 2022 End: 07-23-6446minsbjcvkvSephft Tyson Other [employer] Other Start: 27-28-3568Jdddbxzgo encounterGloria JohnsS[facility] Family [facility] SandtampayStart: 09-30-2022 End: 17-70-5969oyknlrxmblYanpfr Tyson Other [employer] Other Start: 41-68-6432Ymlftvmdj encounterGloria JohnsS[facility] Family Medicine SandtampayStart: 09-24-2022 End: 29-31-8373rfeqnkvtkzSazwkg Tyson Other [employer] Other Start: 08-24-9422Tahfsnuex encounterGloria [facility] Medicine CenteryStart: 03-95-1164Nsdrjv outpatient visit 25 minutes Peri MarbellaGlendale Memorial Hospital and Health CenteryStart: 09-16-2022 End: 91-19-6157cgurgrynnrNO Peri A Marbella Work Phone: [employer] Other Start: 09-16-2022 End: 91-50-6034Lhcblmw encounter procedureDO Peri Marbella Work Phone: [facility]-X-Ray [facility] CtrStart: 09-09-2022 End: 03-06-5694vlxufcfncqDfpxmm Tyson Other [employer] Other Start: 18-58-5649Vhdbrgcqs encounterGloria [facility] Medicine CenteryStart: 01-73-9844Xtrmoaqpua RecurringDO Peri Marbella Work Phone: [facility]-Physical Therapy [place] RdStart: 08-12-2022 End: 56-25-5385uypvjgswayBvyugx Marbella Other [employer] Other Start: 96-81-7405Goahuzglq encounterGloria [facility] Medicine CenteryStart: 08-07-2022 End: 40-41-8930qahksoflwoXJ Peri A Marbella Work Phone: [facility] Work Phone: Start: 08-07-2022 End: 89-54-8808Weainth encounter procedureDO Peri Tyson Work Phone: [facility]-Lab [place] Work Phone: Start: 08-01-2022 End: 93-61-2019rwygavzmmcDaxyfn Tyson Other [employer] Other Start: 42-72-7644Xttygjuiv encounterGloria JohnsS[facility] Family [facility] SandtampayStart: 73-02-9579Lgcynpqosv RecurringDO Peri Tyson Work Phone: [facility]-Cancer Center Work Phone: Start: 07-18-2022 End: 05-82-4951gttkighdpbZrscxs Tyson Other [employer] Other Start: 04-27-3597Sjfletyof encounterGloria JohnsS[facility] Family [facility] SandtampayStart: 07-17-2022 End: 69-36-6704ptdsaaucyxQxpeyc Tyson Other [employer] Other Start: 23-26-5413Gajavadcm encounterGloria JohnsS[facility] Family [facility] HospitalyStart: 07-14-2022 End: 05-68-0799bqvfcofpvrBozlzc Tyson Other [employer] Other Start: 18-42-3991Mlixhyoyv encounterGloria [facility] Family [facility] HospitalyStart: 07-07-2022 End: 53-42-0952ifijdyohvwYjjvlv Ruttino Other [employer] Other Start: 34-46-2625Zulrep-up encounterLulú [place] Vascular SurgeryStart: 07-07-2022 End: 49-65-8867Pjhvqaa encounter procedureDO Peri Tyson Work Phone: [facility] VascularStart: 07-03-2022 End: 37-10-6600mrgwxolkthZW SANAM LINARES .Facility:P2Ssrbb: 06-30-2022 End: 70-60-2583inrelyaltdHumblj Tyson Other [employer] Other Start: 77-59-7830Xbvaaqpxj encounterGloria [facility] Family [facility] SandtampayStart: 01-62-8102Hwwpjjomx encounterGloria [facility] Family [facility] HospitalyStart: 05-23-2022 End: 08-33-6291hpaoinvdseKO Periluis Tyson Work Phone: [facility] Work Phone: Start: 05-23-2022 End: 04-31-6111Cyisfjr encounter procedureDO Peri Tyson Work Phone: [facility] Work Phone: Start: 05-15-2022 End: 82-79-8761djnsnqrrdrKtzglj Johns Other [employer] Other Start: 15-18-2180Qqnprgbpy encounterGloria [facility] Medicine CenteryStart: 05-12-2022 End: 28-50-4223afjqtvqngnIaclad Marbella Other [employer] Other Start: 81-40-5106Pfdwkkkth encounterGloria [facility] Medicine CenteryStart: 51-84-1150Dbwwixzbmu RecurringDO Peri Tyson Work Phone: [facility]-Cancer Center Work Phone: Start: 05-09-2022 End: 44-06-5204Gfpsiki encounter procedureDO Periluis Tyson Work Phone: [facility]-Lab [place] Work Phone: Start: 05-07-2022 End: 77-24-4845hwpoaunuocWubmkm Marbella Other [employer] Other Start: 03-31-7869Egwvvo outpatient visit 25 minutes [facility]i [facility] Family Medicine [place]Start: 05-06-2022 End: 92-31-1408vtcmwtuiloCY SANAMKONSTANTIN LINARES .Facility:I6Cxgsg: 04-23-2022 End: 62-63-5176kkmurejskbDL Kevin T Carnahan Work Phone: [facility] Work Phone: Start: 04-23-2022 End: 31-90-0132Jnmoqomjyy RecurringDO Giovanni Moreno Work Phone: [facility]-Cancer Center Work Phone: Start: 04-22-2022 End: 20-65-7193hhewoetdjaJurdzz Tyson Other [employer] Other Start: 15-17-3668Sqbpwaqyk encounterGloria JohnsS[facility] Family Medicine [place]Start: 04-21-2022 End: 90-57-4965rcpezspwdpXlntsd Tyson Other [employer] Other Start: 29-62-9594Jvdorodcs encounterGloria JohnsS[facility] Family [facility] [place]kyStart: 04-17-2022 End: 03-67-3144wsxqwnrqbaUtshfx Tyson Other [employer] Other Start: 60-12-5942Jlxbyrxum encounterGloria JohnsS[facility] Family Medicine [place]Start: 04-02-2022 End: 44-40-2654iswhdhhbobRgpvzp Tyson Other [employer] Other Start: 17-99-6324Yipwpxilw encounterGloria JohnsS[facility] Family Medicine [place]Start: 03-31-2022 End: 14-44-4885kjhyilqcdsDqzysh Tyson Other [employer] Other Start: 15-98-5775Railnbzax encounterGloria JohnsAthol Hospital SanduskyStart: 03-17-2022 End: 58-91-9207tpfuocoodiLbchyz Tyson Other [employer] Other Start: 33-00-3283Ielxezkyv encounterGloria [facility] SandtampayStart: 03-10-2022 End: 31-44-7669uzgxhlzmniJkfxvv Tyson Other [employer] Other Start: 83-26-3514Bxdchujkd encounterGloria [facility] Medicine CenteryStart: 02-19-2022 End: 59-15-3293wnrwmxzjnzSS Giovanni Moreno Work Phone: [facility] Work Phone: Start: 02-19-2022 End: 47-26-9108Nxzelrb encounter procedureDO Giovanni Moreno Work Phone: [facility]-Sleep LabStart: 02-18-2022 End: 57-08-7663jeeprysztuQubjpr Tyson Other [employer] Other Start: 18-57-3181Dgpdvptol encounterGloria JohnsAthol Hospital SandtampayStart: 02-13-2022 End: 95-39-1286aoqnbowalsVhiljl Tyson Other [employer] Other Start: 21-70-9214Jnqizzyih encounterGloria [facility] Medicine CenteryStart: 02-11-2022 End: 54-69-9570hkqohmxtusWtiuoi Tyson Other [employer] Other Start: 84-22-2558Pzgrikowp encounterGloria JohnsS[facility] Family [facility] [place]kyStart: 02-10-2022 End: 73-64-9027caardpvuwtEsyptw Tyson Other [facility]-SullivanFinovera Other Start: 45-86-2804Zhghrmdcb encounterGloria JohnsS[facility] Family Medicine [place]Start: 61-12-1556Mzoxbe outpatient visit 25 minutes Peri [facility] Family [facility] SanduskyStart: 02-03-2022 End: 90-73-9527bookhvshhqOWApryl Moreno Work Phone: [employer] Other Start: 02-03-2022 End: 99-40-4112Nitvdfjy Ronnie Moreno Work Phone: [facility]Start: 01-22-2022 End: 55-13-6235gpvguovliwOgkxtv Tyson Other [facility]-SullivanFinovera Other Start: 07-87-7271Ekhjzdrmy encounterGloria JohnsSAGE MEMORIAL [facility] [place]Start: 12-30-2021 End: 43-93-4580yqlqbnuqmnEsqxqv Tyson Other [employer] Other Start: 05-40-2252Jfmcajcye encounterGloria JohnsSAGE MEMORIAL H[facility] [place]Start: 12-23-2021 End: 43-36-1952mwbhmxqkomYrqnel Tyson Other [employer] Other Start: 15-12-0890Jxcway outpatient visit 25 minutes [facility] [place]Start: 12-23-2021 End: 72-56-7462Hahdsgxj Ronnie Moreno Work Phone: [facility] CampusStart: 11-29-2021 End: 41-02-8234lqmdvuqruuRorwjay Manju Other [facility] [employer] Other Start: 22-83-3534Eocuakbcj encounterJosafat NunesSAGE MEMORIAL HOSPITAL Family [facility] [place] HealthyStart: 11-05-2021 End: 58-38-6112sbpblrxlubOinuk Carnahan Other [facility] [employer] Other Start: 62-44-5993Jpdfauzzs encounterKejosé MorenoSAGE MEMORIAL HOSPITAL [facility] [place] HealthyStart: 11-04-2021 End: 79-41-0922wihtwktgmxRaiscsz Schwerer Other [facility] [employer] Other Start: 40-69-3825Fhktuwhyq encounterKaitlin Schwerer [facility] [place] HealthyStart: 10-31-2021 End: 82-59-2212ecrgjjjeewWupzwbo Schwerer Other [facility] [employer] Other Start: 95-30-8882Asxmzdcud encounterKaitlin Schwerer [facility] [place] HealthyStart: 04-03-8081Oqpyrhefdd RecurringDO Giovanni Moreno Work Phone: [facility] CenterStart: 10-21-2021 End: 96-25-3034Lftbndn encounter Joaquín Moreno Work Phone: [facility]: 10-21-2021 End: 59-76-4444wlgtpeimeeJkuwr Carnahan Other [employer] Other Start: 95-63-9154Qiyjqy outpatient visit 25 minutes Giovanni MorenoS[facility] MEMORIAL [facility] [place] HealthyStart: 10-03-2021 End: 65-72-1647wneskhjkipZsahu Carnahan Other [employer] Other Start: 69-30-0925Pwkctlfzl encounterKejosé Banks [facility] [place]kyStart: 09-26-2021 End: 29-95-9241Gaojhqome to same day surgery centerDO Giovanni Josh Work Phone: [facility] [place] Start: 09-19-2021 End: 86-14-3662nqpljvwggiKzunt Carnahan Other [employer] Other Start: 23-87-2433Kfmnnnmzn encounterKejosé MorenoNatan Family Medicine [place]kyStart: 08-23-2021 End: 77-71-9295zfxjmapyjpUyzuja Zaky Other [employer] Other Start: 98-71-5793Hvdkrkikg encounterStelma Loredo Referral CoordinatorStart: 08-22-2021 End: 94-73-7539xnbmeggbtyIshwzm Zaky Other [employer] Other Start: 44-21-3389Pnfbop consultation new/estab patient 60 minSherif Facundo Pain ManagementStart: 08-08-2021 End: 17-83-9715febzsqwvhkMaivz Carnahan Other [employer] Other Start: 86-55-8626Nuxivcwjv encounterKejosé MorenoNatan Family Medicine [place]kyStart: 08-07-2021 End: 29-44-7198keiywooxvxLlcmi Carnahan Other [employer] Other Start: 46-55-5529Suidia outpatient visit 15 minutes Giovanni Banks [facility] [place]kyStart: 77-96-2543Bwjyupucl encounter Giovanni Banks [facility] [place]kyStart: 08-01-2021 End: 64-30-1459ejkfjpidoiAznkh Josh Other [employer] Other Start: 62-99-3018Zqonppgkq encounterKevin JoshSAGE MEMORIAL HOSPITAL [facility] Medicine [place]Start: 07-29-2021 End: 25-75-8360iucoeclnnfVwuvu Josh Other [employer] Other Start: 35-26-9543Xkovtroud encounterKejosé MorenoSAGE MEMORIAL [facility]OSPITAL [facility] Medicine [place]Start: 07-22-2021 End: 36-97-7826clleqlpuzkRbnxd Josh Other [employer] Other start: 49-07-7334Bccvpx outpatient visit 25 minutes Giovanni MorenoS[facility] MEM[facility] [place]Start: 07-03-2021 End: 62-42-6117fougmxlmbhHjrnl Josh Other [employer] Other Start: 53-08-7620Efjeekrdx encounterKejosé MorenoSAGE MEMORIAL HOSPITAL Family Medicine [place]Start: 06-25-2021 End: 76-96-1998arjauimsplVwbax Josh Other [employer] Other Start: 69-22-4194Vjxlmbwsb encounterKevin JoshSAGE MEMORIAL HOSPITAL Family Medicine [place]Start: 06-20-2021 End: 18-94-6670nespzjvtxeCvyvu Josh Other [employer] Other start: 15-28-5318Xgzxqc outpatient visit 25 minutes Giovanni MorenoS[facility] MEMORIAL [facility] Medicine [place]Start: 06-06-2021 End: 60-86-7071ptobjuifyzNgjwv Josh Other [employer] Other Start: 91-17-6817Vayrdtunc encounterKevin JoshSAGE MEMORIAL [facility] Family Medicine [place]Start: 06-05-2021 End: 08-48-0423wkmbylsnyxSxune Josh Other [employer] Other Start: 97-11-7765Efuwgeaka encounterKevin JoshG Family Medicine [place]kyStart: 05-23-2021 End: 80-66-8807kcgekghvgoOshxa Josh Other [employer] Other Start: 90-38-2201Mngomkp encounter procedureKevin JoshSAGE MEMORIAL [facility] Family Medicine [place]Start: 30-91-5390Utneqtjwb encounterKevin JoshG Family Medicine [place]kyStart: 05-15-2021 End: 52-77-0049cupustejxhFclig Carnahan Other [employer] Other Start: 64-63-8081Anxlpugdo encounterKevin JoshSAGE MEMOR[facility] Medicine [place]Start: 05-02-2021 End: 90-46-1347jzacqwdbzlSqpjm Carnahan Other [employer] Other Start: 54-76-7347Myhdqdtti encounterKejosé MorenoG Family Medicine [place]Start: 05-01-2021 End: 04-89-2226gwlrqodjafTxpla Josh Other [employer] Other Start: 70-18-7654Zhadqh outpatient visit 15 minutes Giovanni JoshS[facility] Medicine [place]Start: 04-30-2021 End: 39-42-4540qxhdrqtwtuItywv Josh Other [employer] Other Start: 29-40-0416Bcrhibgky encounterKevin DmitriyEdward P. [facility] [place]Start: 04-29-2021 End: 97-16-6006qvewyrhldiRfbwh Carnahan Other [employer] Other Start: 49-90-0769Bidvgnkce encounterHollyjosé MorenoSAGE MEMORIAL HOSPITAL Family Medicine [place]Start: 04-02-2021 End: 01-04-1861ydioewhaaaIhjkg Carnahan Other [employer] Other Start: 71-71-8235Ksuyoy outpatient visit 25 minutes Giovanni DmitriyjewellSAGE MEMORIAL HOSPITAL Family Medicine [place]tampayStart: 03-25-2021 End: 45-71-2411rvcleqafvnLoazm Josh Other [employer] Other Start: 10-36-3330Gnrbfhqso encounterKejosé DmitriyEdward P. [facility] Family Medicine SandtampayStart: 03-21-2021 End: 96-68-3892atjgsafwejIikts Carnahan Other [employer] Other Start: 11-23-0828Giyyivrem encounterKejosé IzaguirreEdward P. [facility] Family Medicine SandtampayStart: 03-04-2021 End: 98-86-3071sdaircjhakTpflavt Buehrer Other [employer] Other Start: 09-55-6227Qhoxhj outpatient new 45 minutes Domenico Gabriel Vascular SurgeryStart: 02-27-2021 End: 01-17-9845qjkvxkicjyRimth Carnahan Other [employer] Other Start: 04-49-6009Odxichnhx encounterKejosé JoshSAGE MEMORIAL H[facility]PITAL Family Medicine SandtampayStart: 02-20-2021 End: 15-83-2790lbwkrhvinqHfbyn Josh Other [employer] Other Start: 44-21-1702Gvijgtddw encounterNovant Health/N[facility] Medicine [place] Procedures DateProcedureProcedure DetailPerforming ClinicianStart: 65-42-4784Birzgfcb blood count with white cell differential, automatedRoxane Bills MD Work Phone: Start: 35-93-0034Ljvvrzlxaohyq metabolic panelRoxane Bills MD Work Phone: Start: 08-76-0558Neerytgl blood count with white cell differential, automatedRoxane Bills MD Work Phone: Start: 96-90-8745Rndqkuzhyprvt metabolic panelRoxane Bills MD Work Phone: Start: 77-63-4100Bpzlksyc blood count with white cell differential, automatedRoxane Bills MD Work Phone: Start: 55-60-2143Hezkcrlknpgli metabolic panelRoxane Bills MD Work Phone: Start: 25-84-3947CJWGYCR ELECTRO, RANDOM URINERoxane Bills MD Work Phone: Start: 35-28-6338Boydz immunofixationGloria [facility] DO Work Phone: Start: 67-88-7635Krvegiokoykig metabolic panelRoxane Bills MD Work Phone: Start: 72-95-6779Ufdbx cultureGloria [facility] DO Work Phone: Start: 12-27-2024 End: 25-78-9588Czzno nucleic acid assayGloria [facility] DO Work Phone: Start: 39-83-6322Ivdrozig screenRoxane Lr on above:Order Comment: communicated to JYOTSNA WU Transfuse now? Y Number of units to transfuse now? [id number]) Transfuse now? Y Number of units to transfuse now? 1Result Comment: PERFORMED BY:[facility] [place], [place] [phone] MEDICAL DIRECTORELAINE CHAUDHARY M.D.Start: 76-30-2702Urlfpveohbyqeaj of bilateral kidneysGloria Tyson DO Work Phone: Start: 11-50-2030Bguzq chest X-rayGloria Tyson DO Work Phone: Start: 98-11-9430Ilkvmsrqzblkx metabolic panelRoxane Bills MD Work Phone: Start: 22-36-0118Sxlvlu Tyson DO Work Phone: Start: 33-85-7895Jiqjl chest X-rayGloria Tyson DO Work Phone: Start: 28-83-6169Arxxs dip stick/tablet rgnt non-auto w/o micrscpAenrique Bills MD Work Phone: Start: 12-21-2024 End: 64-69-1339Hjqftvo bacterial blood aerobic w/id isolatesRoxane Bills MD Work Phone: Start: 85-20-0697Atfaijuo blood count with white cell differential, automatedRoxane Bills MD Work Phone: Start: 05-24-9298Qxjsqwmolhtwg metabolic panelRoxane Bills MD Work Phone: Start: 04-35-3913Ybfgoaldzrmln metabolic panelRoxane Bills MD Work Phone: Start: 90-52-3761BHRRFHY ELECTRO, RANDOM URINERoxane Bills MD Work Phone: Start: 64-29-0404Cddiz of magnesiumRoxane Bills MD Work Phone: Start: 34-69-8870Medqnzis blood count with white cell differential, automatedRoxane Bills MD Work Phone: Start: 45-12-7834Cqppnvtyivnbj metabolic panelRoxane Bills MD Work Phone: Start: 80-86-2916Kkwwaiuozernk metabolic panelRoxane Bills MD Work Phone: Start: 13-55-1426Xxvcdqfl blood count with white cell differential, automatedRoxane Bills MD Work Phone: Start: 19-60-1244Ajefxdqskwpju metabolic panelRoxane Bills MD Work Phone: Start: 66-53-0856Alei bld gluc mntr dev cleared fda spec home useAhamelia Lukas Jeff PARK Work Phone: Start: 86-77-8052Kejuirrj screenRoxane BillsStart: 21-69-6674Tzkxaguz blood count with white cell differential, automatedRoxane Bills MD Work Phone: Start: 19-13-0881Llxyoqdbkgpsv metabolic panelRoxane Bills MD Work Phone: Start: 68-71-8793Tdtkrppew B core antibody measurement Peri Tyson DO Work Phone: Start: 38-33-4828Leryqidrk b surf antibody hbsHammad Bills MD Work Phone: Start: 42-02-5177QBYIEXIBP B SURFACE ANTIGEN ([facility])Roxane Bills MD Work Phone: Start: 87-59-1205Sptjrf Johns [employer] Work Phone: Start: 53-57-2215Eaycmbpmkffsz metabolic panelRoxane Bills MD Work Phone: Start: 42-76-2792VRXPORSVW REQUEST FOR LAB CORPRoxane Bills MD Work Phone: Start: 95-89-7306PNNIQGIZKAD PROFILERoxane Bills MD Work Phone: Start: 01-73-2009Pxeorsff blood count with white cell differential, automatedRoxane Bills MD Work Phone: Start: 78-88-3723Qerebhahnhzjw metabolic panelRoxane Bills MD Work Phone: Start: 27-71-1636Zlle marrow samplingGloria Marbella HECK Work Phone: Start: 81-42-1224Armoscfd blood count with white cell differential, automatedRoxane Bills MD Work Phone: Start: 46-20-9001Nmrgt immunofixationGloria Marbella HECK Work Phone: Start: 63-75-2447Wasz bld gluc mntr dev cleared fda spec home useJeannie Aguilar MD Work Phone: Start: 68-45-1816Ohsq bld gluc mntr dev cleared fda spec home useJeannie Aguilar MD Work Phone: Start: 70-77-6177Ymwcwchg blood count with white cell differential, automatedRoxane Bills MD Work Phone: Start: 85-75-4585Rpyzkzsquodsc metabolic panelRoxane Bills MD Work Phone: Start: 31-30-7186IEKK K+L LT CHAINS, QN, Rona Alia Bills MD Work Phone: Start: 29-10-2281JHPJGEUUKNOKOO,SERUM ([facility])Roxane Bills MD Work Phone: Start: 77-61-7058F-ray skeletal surveyDO Peri Tyson Work Phone: Start: 01-20-2024 End: 97-19-7191Ksni bld gluc mntr dev cleared fda spec home useJeannie Aguilar MD Work Phone: Start: 72-45-6286Rfazaxstw mammography of bilateral breastsDO Peri Tyson Work Phone: Start: 16-49-5522Cvctzt scan of lower limb veinsDO Periluis Tyson Work Phone: Start: 34-80-8333Tzlhx volume recorder pneumoplethysmographyDO Peri Tyson Work Phone: Start: 99-64-3746Rvqm marrow samplingDO Peri Tyson Work Phone: Start: 10-38-7079Ofapexvzaq examination, osseous survey, completeDO Peri Tyson Work Phone: Start: 11-74-0909WNJ of left hipDO Peri Tyson Work Phone: Start: 44-32-4421Udtbbiuyctcwlopffdb of cataract with intraocular lens implantationDO Peri Tyson Work Phone: Start: 14-10-3841RT lumbar spine wo conDPedro Luis Tyson Work Phone: Start: 97-20-3176Ujecn X-ray of left hipDO Peri Tyson Work Phone: Start: 34-92-3365Tcsyil scan of lower limb veinsDO Peri Tyson Work Phone: Start: 23-18-8212Dnoepmobx mammography of bilateral breastsDPedro Luis Tyson Work Phone: Start: 16-64-4272Gylfsl X-rayDO Peri Tyson [employer] Phone: Start: 24-43-9659U-ray of lumbar spine, two or three viewsDO Peri Tyson [employer] Phone: Start: 75-96-5751Skjeo cultureDPedro Luis Izaguirreahan Work Phone: Start: 05-66-4875Rsar marrow samplingDO Giovanni Moreno Work Phone: Start: 86-11-9147Djrtkbghkd examination, osseous survey, completeDPedro Luis Moreno Work Phone: Urine Joseph Davila [employer] Work Phone: Urine Joseph Davila [employer] Work Phone: Plan of Treatment DateCare ActivityDetailAuthorStart: 48-13-1300Vjpdpxvohsna Vaccine: 65+ Years (3 of 3 - PPSV23 or PCV20)Pneumococcal Vaccine: 65+ Years (3 of 3 - PPSV23 or PCV20)[facility] HealthcareStart: 04-18-2025 End: 73-66-8280Gdsezyx encounter ynqakhmln63/06/2026 1:45 PM EST Office Visit [facility] [address] [place] [address] Svetlana Garcia, [address] [place] [place] [address] [facility] Frank Bhattes PulmonologyStart: 03-13-2025 End: 84-76-5849Gkamjak encounter sahtnbbez72/01/2025 8:40 AM EST Office Visit [facility] [address] [place] [address] Mack Tsai DPM [address] [address] RE[facility]DO [facility]oto PodiatryStart: 03-07-2025 End: 43-22-4434Qtxpgux encounter procedureNOMS PULMStart: 03-06-2025 End: 71-16-9144Hquhiqh encounter hezoasvem41/24/2025 10:10 AM EST Office Visit [facility] [address] [place] [address] Jeannie Aguilar MD [address] [place] [address] REGINALDO Marie EndocrinologyStart: 82-04-8425HmciwxtkeGrant Hospitaltart: 02-15-2025 End: 53-53-4895NzopwilzpGrant Hospitaltart: 95-54-8504IoafjtjkkBluffton Hospital CenterStart: 82-81-8708JtwcbzxglGrant Hospitaltart: 72-66-3164FjyxqwwgzBluffton Hospital CenterStart: 10-17-4842RbgqoselsGrant Hospitaltart: 09-49-8779CylxpryrsBluffton Hospital CenterStart: 71-21-0270LpngjmolwBluffton Hospital CenterStart: 01-17-2025 End: 35-30-7710EeqnpsqdcBluffton Hospital CenterStart: 59-95-6287QuvupetavBluffton Hospital CenterStart: 04-43-5095AmmwwpfpoBluffton Hospital CenterStart: 53-93-5418IjxdfflbeBluffton Hospital CenterStart: 34-07-2708PdmqflrntBluffton Hospital CenterStart: 11-74-9207QltfbjjadBluffton Hospital CenterStart: 81-43-3245KklmbsqowBluffton Hospital CenterStart: 06-74-6864CmragnmepBluffton Hospital CenterStart: 84-78-8545RrojcoabiBluffton Hospital CenterStart: 31-26-6606XmaphayalBluffton Hospital CenterStart: 91-28-7281Rkorulfynggulf of prophylactic treatmentBluffton Hospital CenterStart: 21-54-7265Ierpbntj to infectious diseases physicianBluffton Hospital CenterStart: 12-28-2024 End: 61-27-7489RbuvxcmfrBluffton Hospital CenterStart: 12-27-2024 End: 73-22-5752VesnunzauBluffton Hospital CenterStart: 80-87-7553PslmasbbfBluffton Hospital CenterStart: 12-27-2024 End: 76-78-3649TekajrvfsBluffton Hospital CenterStart: 81-40-8423Vagjffhz to oncologistBluffton Hospital CenterStart: 63-90-0367VxqboCleveland Clinic Euclid Hospital CenterStart: 50-61-3841Abghxxov admissionBluffton Hospital CenterStart: 42-53-2842RzocdwfljBluffton Hospital CenterStart: 12-21-2024 End: 18-95-5783IpxcurxuyBluffton Hospital CenterStart: 04-02-0109KqzksydnyBluffton Hospital CenterStart: 12-19-2024 End: 10-23-1356Gypihlz encounter procedureNOMS Frank Soto PodiatryComment on above:Diabetes mellitus due to underlying condition with diabetic polyneuropathy, with long-term current use of insulin (HCC) (Primary Dx); Pain due to onychomycosis of toenails of both feet; Xerosis cutisStart: 74-72-4147LsdtgsgrwGrant Hospitaltart: 12-13-2024 End: 18-16-5198OepzvkrjrGrant Hospitaltart: 32-33-5737GerkprbcjGrant Hospitaltart: 37-63-2860EPNQN-19 Vaccine ( season) COVID-19 Vaccine ( season)[facility] HealthcareStart: 74-17-5692Bcrjgngzw vaccinationInfluenza Vaccine (#1)[facility] HealthcareStart: 12-09-2024 End: 21-33-6176Axfujci encounter procedureNOMS [place] PODStart: 24-18-0506IjeflnumoGrant Hospitaltart: 38-60-5682RduumebstGrant Hospitaltart: 38-41-1682LvngwpygmGrant Hospitaltart: 69-16-1775HzsxkejqpGrant Hospitaltart: 11-21-2024 End: 48-49-4840OqfdyioqwGrant Hospitaltart: 11-21-2024 End: 89-25-7770Dexbdut encounter procedureNOMS ENDOCRINOLOGYStart: 11-14-2024 End: 82-35-2721Thxqwiz encounter oaqpwqdxe73/04/2025 9:00 AM EDT Office Visit [facility] [address] [place] [address] Jeannie Aguilar MD [address] [place] [address] ArrivedREGINALDO Marie EndocrinologyComment on above:ArrivedStart: 11-14-2024 End: 82-97-1166CjzncveepGrant Hospitaltart: 34-20-6905FdntnefgqGrant Hospitaltart: 09-30-2024 End: 45-84-9686Bhdnujf encounter bquakxize84/20/2025 10:10 AM EDT Office Visit [facility] [address] [place] [address] Mack Tsai DPM [address] [facility] Justin [address] [place] [address] Diabetes mellitus due to underlying condition with diabetic polyneuropathy, with long-term current use of insulin ([facility]) (Primary Dx); Pain due to onychomycosis of toenails of both feet; Xerosis cutisNOMS [place] PODComment on above:Diabetes mellitus due to underlying condition with diabetic polyneuropathy, with long-term current use of insulin ([facility]) (Primary Dx); Pain due to onychomycosis of toenails of both feet; Xerosis cutisStart: 48-48-2446YghzyvzjfGrant Hospitaltart: 09-06-2024 End: 95-99-8051Xulrtnr encounter kpszvpmre66/27/2025 2:20 PM EDT Office Visit [facility] [place] [facility] [address] [place] [address] Mack Tsai DPM [address] [address] [facility] PODStart: 08-25-2024 End: 81-87-3205Cxyfqdr encounter procedureNOMS PULMComment on above:Arrived Start: 08-22-2024 End: 08-50-3178Cmzupdb encounter procedureNOMS ENDOCRINOLOGYComment on above: Type 2 diabetes mellitus with hyperglycemia, with long-term current use of insulin ([facility])Start: 50-69-5055Ajrkyyyvi monophosphate.cyclic [Moles/volume] in Serum or PlasmaGrant Hospitaltart: 21-61-2394Gzwurdwpob factor [Units/volume] in Serum or PlasmaGrant Hospitaltart: 07-14-2024 End: 38-18-6187Wjwvvty encounter exprgiqrd25/03/2025 2:00 PM EDT Office Visit [facility] [address] [place] [address] Svetlana Garcia DO [address] [place] [address] [facility] PULMStart: 06-24-2024 End: 99-49-3393Lwlgeci encounter gfeofeeth75/14/2025 8:30 AM EDT [facility] [address] [place] [address] Mack Tsai DPM [address] [address] [facility] PODStart: 05-25-2024 End: 06-00-9674Pnhpozc encounter procedureNOSHRINERS HOSPITALS FOR CHILDREN ENDOCRINOLOGYComment on above: Type 2 diabetes mellitus with hyperglycemia, with long-term current use of insulin (CMS/HCC)Start: 04-15-2024 End: 53-33-7214Iuiwynl encounter procedureNOMS [place] PODComment on above:Diabetes mellitus due to underlying condition with diabetic polyneuropathy, with long- term current use of insulin (CMS/HCC) (Primary Dx); Pain due to onychomycosis of toenails of both feetStart: 04-26-0658Tvidfpt [facility] Work Phone: Start: 02-02-2024 End: 27-79-0592Ibczuta encounter procedureNOASCENSION ST. [facility] PODComment on above:Diabetes mellitus due to underlying condition with diabetic polyneuropathy, with long- term current use of insulin (CMS/HCC) (Primary Dx); Pain due to onychomycosis of toenails of both feetStart: 01-20-2024 End: 22-43-5216Tyiwekx encounter procedureNOSHRINERS HOSPITALS FOR CHILDREN ENDOCRINOLOGYComment on above: Type 2 diabetes mellitus with hyperglycemia, with long-term current use of insulin (CMS/HCC)Start: 01-14-2024 End: 56-13-8690Gtgatsh encounter procedureNOSHRINERS HOSPITALS FOR CHILDREN PULMComment on above:Arrived Start: 50-39-6148Ivuitittf vaccinationInfluenza Vaccine (#1)[facility] Start: 27-30-5176Vepqmri [facility] Work Phone: Start: 07-16-2023 End: 93-16-3035Jveoolu encounter lftarshkf37/04/2024 1:45 PM EDT Office Visit [facility] [address] [place] [address] Svetlana Garcia, DO [address] [place] [address] [facility] PULMStart: 39-69-8880WFhM/Tdap/Td Vaccines (3 - Td or Tdap)DTaP/Tdap/Td Vaccines (3 - Td or Tdap)NOM HealthcareStart: 06-29-2023 End: 24-33-5981Qazxrwf encounter infyxyabr86/18/2024 8:40 AM EDT Office Visit [facility] [place] [facility] [address] [place] [address] Mack Tsai, DPM [address] [address] [facility] [place] PODStart: 34-35-9264Vqlvke scan of lower limb veinsUS venous duplex LE [facility] CenterStart: 72-58-6086CP Lower extremity vein - bilateralBluffton Hospital CenterStart: 02-12-2023 End: 98-75-8051SorltxffzBluffton Hospital CenterStart: 12-18-2022 End: 55-33-1317XbghmrnlfBluffton Hospital CenterStart: 85-90-6396Jnhvayb C- peptide measurementBluffton Hospital CenterStart: 31-16-8241ZccfpqwfpBluffton Hospital CenterStart: 55-54-5598UtdpfdgnkBluffton Hospital CenterStart: 65-37-7648QlbxcibeuBluffton Hospital CenterStart: 50-46-6841NgefuorukBluffton Hospital CenterStart: 09-26-2021 End: 31-03-9270DdhtxfakiAdena Health System Work Phone: Start: 29-44-6633Kbftrccoi for malignant neoplasm of breastMammogramNOMS HealthcareStart: 47-69-2224Qixltovpp for malignant neoplasm of cervixNOMS HealthcareStart: 67-11-2291Afcvllfdi for malignant neoplasm of cervixPap SmearNOMS HealthcareStart: 38-67-3069UBC Vaccines (1 of 1 - Standard series)MMR Vaccines (1 of 1 - Standard series)[facility] HealthcareStart: 1960 Screening for malignant neoplasm of colonSac-Osage Hospital24 hour urine measurementKettering HealthAdenosine monophosphate.cyclic [Moles/volume] in Serum or PlasmaKettering HealthAlbumin [Mass/volume] in Serum or PlasmaKettering HealthAlbumin [Mass/volume] in Serum or PlasmaKettering Health Albumin/Globulin ratioKettering HealthAlbumin/Globulin ratio [facility]tering HealthAlbumin/Globulin ratioKettering HealthAnion gap measurementKettering HealthAnion gap measurementKettering HealthBacteria identified in Blood by [facility] Work Phone: Bacteria identified in Urine by CultureKettering HealthBasophils [#/volume] in Blood by Automated countKettering HealthBasophils [#/volume] in Blood by Automated count [facility] HealthBasophils/100 leukocytes in Blood by Automated countKettering HealthBasophils/100 leukocytes in Blood by Automated countKettering HealthBone marrow samplingKettering HealthCBC W Auto Differential panel - BloodCBC auto differential Lab STAT 11/28/2024 11:25 AM [facility] Work Phone: cbc W Auto Differential panel - BloodCBC auto differential Lab STAT 12/13/2024 8:57 AM [facility] Work Phone: cbC W Auto Differential panel - BloodCBC auto differential Lab STAT 12/26/2024 10:05 AM [facility] Work Phone: cbc W Auto Differential panel - BloodCBC auto differential Lab Routine 01/17/2025 2:15 PM [facility] Work Phone: Comprehensive metabolic 1999 panel - Serum or Plasma [facility] Work Phone: Comprehensive metabolic 1999 panel - Serum or Plasma Ket[facility] HealthComprehensive metabolic 1999 panel - Serum or PlasmaKettering HealthComprehensive metabolic 1999 panel - Serum or [facility] RehabilitationComprehensive metabolic 1999 panel - Serum or PlasmaKettering HealthComprehensive metabolic 2000 panel - Serum or PlasmaComprehensive metabolic panel Lab Routine 08/23/2024 11:34 AM [facility] Work Phone: Comprehensive metabolic 1999 panel - Serum or Plasma Kettering HealthComprehensive metabolic 1999 panel - Serum or [facility]Com[facility] 1999 panel - Serum or [facility] RehabilitationCom[facility] metabolic 1999 panel - Serum or PlasmaKettering HealthComprehensive metabolic 1999 panel - Serum or PlasmaKettering HealthComprehensive metabolic 1999 panel - Serum or [facility] Comprehensive metabolic 1999 panel - Serum or [facility] RehabilitationCommil[facility] [place][note 3]henve metabolic 1999 panel - Serum or [facility] RehabilitationCom[facility] metabolic 1999 panel - Serum or [facility] RehabilitationCom[facility] metabolic 1999 panel - Serum or Plasma [facility] HealthDrugs identified in UrineAdena Health System Work Phone: DXA Skeletal system.axial Views for bone density [facility] HealthDXA Skeletal system.axial Views for bone densityKettering HealthEKG 12 channel [facility] HospitalElectrophoresis: pmpux-8-nhyqpigjHwpcghsfhKettering Health Electrophoresis: zfdqr-4-ryzptisoYwcdotbxgK[facility]tering Health Electrophoresis: nvvda-8-frtcxphfZmrofutwqKettering Health Electrophoresis: qcdvh-4-swrmwxzcGzmremtsgK[facility]tering Health Electrophoresis: fgqka-5-kjegzvfmUwuelqwvhKettering Health Electrophoresis: likjv-3-qpyfdiixJhffkoiohKettering Health Electrophoresis: beta-globulinKettering HealthElectrophoresis: beta-globulinKettering HealthElectrophoresis: beta-globulin [facility] HealthElectrophoresis: gamma globulinKettering HealthElectrophoresis: gamma [facility] HospitalEosinophils/100 leukocytes in Blood by Automated countKettering HealthEosinophils/100 leukocytes in Blood by Automated countUnc Healths Regional Medical CenterErythrocyte distribution width [Ratio] by Automated count [facility] HealthErythrocyte distribution width [Ratio] by Automated [facility]woodsErythrocytes [#/volume] in Blood [facility] HealthErythrocytes [#/volume] in [facility] SystemFerritin [Mass/volume] in Serum or [facility] Work Phone: Ferritin [Mass/volume] in Serum or [facility] RehabilitationGlobulin [Mass/volume] in SerumKettering HealthGlobulin [Mass/volume] in [facility] HospitalGlobulin [Mass/volume] in SerumKettering HealthGlomerular filtration rate [Volume Rate/Area] in Serum, Plasma or Blood by [facility] HospitalGlomerular filtration rate [Volume Rate/Area] in Serum, Plasma or Blood by [facility] HospitalHematocrit [Volume Fraction] of [facility] Health SystemHematocrit [Volume Fraction] of [facility] SystemHemoglobin [Mass/volume] in Blood [facility] HealthHemoglobin [Mass/volume] in [facility] Health SystemIgA [Mass/volume] in Serum or [facility] RehabilitationIgA [Mass/volume] in Serum or [facility] RehabilitationIgA [Mass/volume] in Serum or [facility] RehabilitationIgG [Mass/volume] in Serum or [facility] RehabilitationIgG [Mass/volume] in Serum or [facility] RehabilitationIgG [Mass/volume] in Serum or [facility] RehabilitationIgM [Mass/volume] in Serum or [facility] RehabilitationIgM [Mass/volume] in Serum or [facility] RehabilitationIgM [Mass/volume] in Serum or [facility] RehabilitationIron and Iron binding capacity panel - Serum or PlasmaIron and TIBC Lab Routine 08/23/2024 11:34 AM [facility] light chains.free [Mass/volume] in Serum [facility]Kay[facility] light chains.free [Mass/volume] in Serum [facility] HealthKayavapai [facility] light chains.free/Lambda light chains.free [Mass Ratio] in SerumKettering HealthKappa light chains.free/Lambda light chains.free [Mass Ratio] in SerumKettering HealthLactate dehydrogenase [Enzymatic activity/volume] in Serum or Plasma by Lactate to pyruvate reactionLactate dehydrogenase Lab Routine 08/23/2024 11:34 AM EDDecatur County General HospitalLambda light chains.free [Mass/volume] in Serum or PlasmaKettering HealthLambda light chains.free [Mass/volume] in Serum or PlasmaKettering HealthLeukocytes [#/volume] corrected for nucleated erythrocytes in Blood by Automated [facility] HospitalLeukocytes [#/volume] corrected for nucleated erythrocytes in Blood by Automated [facility] Leukocytes [#/volume] in BloodKettering HealthLeukocytes [#/volume] in BloodKettering HealthLymphocytes [#/volume] in Blood by Automated [facility] SouthwoodsLymphocytes [#/volume] in Blood by Automated [facility] SouthwoodsLymphocytes/100 leukocytes in Blood by Automated [facility] Lymphocytes/100 leukocytes in Blood by Automated [facility] SouthwoodsMCH [Entitic mass] by Automated [facility] SouthwoodsMCH [Entitic mass] by Automated [facility] SouthwoodsMCHC [Mass/volume] by Automated [facility] SouthwoodsMCHC [Mass/volume] by Automated [facility] SouthwoodsMCV [Entitic volume] by Automated [facility] SouthwoodsMCV [Entitic volume] by Automated [facility] SouthwoodsMeasurement of monoclonal protein concentrationKettering HealthMG Breast - bilateral ScreeningKettering HealthMonocytes [#/volume] in Blood by Automated countKettering HealthMonocytes [#/volume] in Blood by Automated countKettering HealthMonocytes/100 leukocytes in Blood by Automated countKettering HealthMonocytes/100 leukocytes in Blood by Automated countKettering Health Neutrophils [#/volume] in Blood by Automated countKettering HealthNeutrophils [#/volume] in Blood by Automated countKettering HealthNeutrophils/100 leukocytes in Blood by Automated [facility] SouthwoodsNeutrophils/100 leukocytes in Blood by Automated count [facility] HealthNucleated erythrocytes [Presence] in Blood by Automated [facility] SouthwoodsNucleated erythrocytes [Presence] in Blood by Automated [facility] SouthwoodsPatient EducationBluffton Hospital Ctr Work Phone: Patient referralBluffton Hospital Ctr Work Phone: Platelet mean volume [Entitic volume] in Blood by Automated [facility] SouthwoodsPlatelet mean volume [Entitic volume] in Blood by Automated [facility] SouthwoodsPlatelets [#/volume] in BloodKettering HealthPlatelets [#/volume] in BloodKettering HealthProtein [Mass/volume] in Serum or Plasma [facility] HealthProtein [Mass/volume] in Serum or Plasma [facility] HealthProtein [Mass/volume] in UrineKettering HealthProtein electrophoresis, serumProtein electrophoresis, serum Lab Routine 08/23/2024 11:34 AM [facility] Work Phone: Protein electrophoresis, serumProtein electrophoresis, serum Lab STAT 12/06/2024 11:25 AM [facility] Work Phone: Protein electrophoresis, serumProtein electrophoresis, serum Lab Routine 02/06/2025 10:35 AM [facility] Work Phone: Radiologic examination osseous survey [facility] HospitalRadiologic examination osseous survey [facility] HospitalRheumatoid factor [Units/volume] in Serum or Plasma [facility] Hospitalerum immunofixationGrant Hospitalerum immunofixationKettering HealthUS Heart TransthoracicKettering HealthXR Chest 2 [facility] Health AdministrationXR Lumbar spine 2 or 3 [facility] AdministrationXR Pelvis 1 or 2 [facility] CenterFirelands Regional Medical CenterFirelands Regional Medical CenterFirelands Regional Medical CenterFirelands Regional Medical CenterFirelands Regional Medical Center Immunizations Immunization DateImmunizationNotesCare MmgvjrtsViklrlzl35-57-6175tctkbixtu virus vaccine, unspecified formulationRoxane Bills MD Work Phone: [facility] HospitalLyiwcljgqb14-96-9782TPJ, preF3, adj, pf Christopher Germain DO Work Phone: [facility]09-05-2024Seasonal trivalent influenza vaccine, adjuvanted, preservative freeChristopher Germain DO Work Phone: [facility]09-05-2024influenza virus vaccine, unspecified formulationSvetlana Garcia DO Work Phone: [facility] HospitalWcgsivhdol85-16-1023Kgmqqc-Kye documentation purposes onlyPeri Tyson Other [facility]10-03-2023tetanus toxoid, reduced diphtheria toxoid, and acellular pertussis vaccine, adsorbedDO Peri [facility] Work Phone: [phone] [place], [place] [address]09-28-2023COVID-19 (PFIZER) 12Y and olderDO Peri [facility] Work Phone: [facility]09-05-2023Hepatitis B vaccine (recombinant), CpG adjuvantedDO Peri [facility] Work Phone: [facility]09-01-2023influenza, injectable, quadrivalent, preservative freePeri Tyson Other [facility]09-01-2023influenza virus vaccine, unspecified formulationMack Tsai DPM Work Phone: noJohn J. Pershing VA Medical CenterIzdfdkrqaa36-56-7094ecaqjpzfp, injectable, quadrivalent, preservative freeMack Tsai DPM Work Phone: [facility] HospitalKcwzmbwvzi26-35-0436Dndblgpqu B vaccine (recombinant), CpG adjuvantedMack Tsai DPM Work Phone: [facility] HospitalOruzyxjgbz71-52-8065Lhtnxjfbvvvt Conjugate PCV 20 Mack Tsai DPM Work Phone: [facility] HospitalAiojyvrcii52-28-9916HWEDD-87 Pfizer (bivalent) Peri Marbella Other [facility]09-14-2022Influenza, injectable, Madin Nkechi Canine Kidney, preservative free, quadrivalentMack Tsai DPM Work Phone: [facility] HospitalKxrcqdpgyw32-12-6528lqvxzsj toxoid, reduced diphtheria toxoid, and acellular pertussis vaccine, adsorbedGlanh Tyson Other [employer] Other [id number], seasonal, injectableGlanh Tyson Other [facility]07-18-2022COVID-19 Vaccine Moderna - Documentation Purposes OnlyPeri Tyson Other [facility]07-18-2022 pneumococcal polysaccharide vaccine, 23 valentPeri Tyson Other [employer] Other [id number]-21 mRNA-1273 (Moderna)DO Giovanni Moreno Work Phone: [facility]11-30-2021COVID-19 Vaccine Moderna - Documentation Purposes OnlyGiovanni Moreno Other [facility]11-29-2021Moderna SARS-CoV-2 Booster VaccinationMack Tsai DPM Work Phone: [facility] HospitalJoljdqqxkl05-06-2640HFCCY-93 mRNA-1273 (Moderna) DO Giovanni Moreno Work Phone: [facility]10-01-2021Flu Vaccine - AdultDO Peri Marbella Work Phone: [facility]10-01-2021influenza, seasonal, injectableDO Giovanni Moreno Work Phone: [facility]10-01-2021Gloria Marbella HECK Work Phone: [facility]09-23-2021influenza, seasonal, injectableGiovanni Moreno Other [facility]09-23-2021Influenza, injectable, Madin Nkechi Canine Kidney, preservative free, quadrivalentNicholas Brown DPM Work Phone: [facility] HospitalZffmvvvkfe90-50-4374iwwcfb vaccine recombinant Giovanni Moreno Other [employer] Other [id number] vaccine recombinantGiovanni Moreno Other [employer] Other 04-581223-68-0082lkgmjfsngvaf polysaccharide vaccine, 23 valentKejosé Moreno Other [employer] Other [id number]-76 Vaccine Pfizer - Documentation Purposes OnlyGiovanni Moreno Other [facility]04-01-2021COVID-19 mRNA-1273 (Moderna)DO Giovanni Moreno Work Phone: [facility]03-25-2021COVID-19 Vaccine Pfizer - Documentation Purposes OnlyGiovanni Moreno Other [facility]10-05-2020influenza, injectable, quadrivalent, preservative freeNicholas Brown DPM Work Phone: noGrand Round Table Kqrlbhvgmy07-67-0485Qatvyasmr, injectable, Madin Nkechi Canine Kidney, preservative free, quadrivalentNicholas Brown DPM Work Phone: [facility] HospitalVetoatonyb96-65-5173xhblgyriolkx conjugate vaccine, 13 valNeil Moreno Other [employer] Other [id number], injectable, Madin Fenton Canine Kidney, quadrivalent with preservativeNicholas Bigg DPM Work Phone: [facility] HospitalYrenagfvkm87-13-2811yrwkljjls, injectable, quadrivalent, contains preservativeNicholas Bigg DPM Work Phone: [facility] HospitalVtparnkugs28-94-8753srcbflwokjzz polysaccharide vaccine, 23 valentNicholas Brown DPM Work Phone: [facility] HospitalLnurekruzy63-34-4841rhhjjegwa virus vaccine, whole virusNicholas Bigg DPM Work Phone: [facility] HospitalMdepmrntvo88-62-4962ilpbvhrkdeez polysaccharide vaccine, 23 valentNicholas Bigg DPM Work Phone: [facility] Payers DatePayer CategoryPayerPolicy [id number] Health [id number] MedicareAETNA MEDICARE ADVANTAGE AETNA MEDICARE REPLACEMENT [id number] 2023-Present [address] [place] [address] [id number]fgi-ivs [id number] Health Insurance [id number] [id number] 2.16840.5.95963[id number] 2..1.972646.[id number] 2.16840.1.697885.3.57[id number] 2..1.735692.3.57[id number] 2..1.740775.3.57[id number] 2..1.941475.3.57[id number] 2..1.602740.3.57[id number] 2..1.437709.3.57[id number] 2..1.486015.3.57[id number] 2..1.764146.3.57[id number] 2..1.306298.3.57[id number] 2..1.915914.3.579.2.[id number] 2.840.1.916083.3.57[id number] 2.0.1.213254.3.579.[id number] 2.16.840.1.853523.3.579.2.623432-26-1234Apwlkhp0692222 2..840.1.334163.3.57[id number] 2.16.840.1.2249[id number] 2.16.840.1.0[id number] 2.16.840.1.598091.3.579.2.531 [id number] 2.16.840.1.4[id number] 2.16.840.1.96[id number] 2.16.840.1.746875.3.579.2.531 [id number] 2.16.840.1.1[id number] 2.16.840.1.152915.3.579.2.531 Social History DateTypeDetailFacilityStart: 04-20-2023 End: 58-05-6613Izk Assigned At [facility] [employer] Other Start: 10-23-2021 End: 36-69-2394Hvkjitv smoking status NHISNever smoked tobacco (finding) [facility] Hospitaltart: 83-25-6237Pqf Assigned At [facility] Rehabilitationtart: 00-84-3574Bmforrt use and exposure Smokeless tobacco non-userNOMS HealthcareStart: 04-20-2023 End: 38-68-2945Xycseie intakeLifetime non-drinker (finding)[facility]OM[facility] HealthcareStart: 04-20-2023 End: 47-30-5160Vbclpuu of Social functionUINTAH BASIN MEDICAL CENTER HealthcareStart: 11-76-1040Fyxavpi CommentCaffeine intake: 2-3 cups per daySac-Osage HospitalStart: 97-58-3732Ect Assigned At BirthNot on fileUINTAH BASIN MEDICAL CENTER HealthcareStart: 02-29-2024 End: 75-27-6407QisHsxcqd (finding)Grant Hospitaltart: 72-50-0971Vbmoxjh smoking status NHISEx-smoker (finding)Grant Hospitaltart: 90-81-9043BwzppksbfAdena Health System Work Phone: Start: 63-69-2614IahLgvcjbMBXD HealthcareNEGATED: Highlighted rowStart: NINFHistory of tobacco usePassive smokerSac-[facility] Hospital Medical Equipment Procedure CodeEquipment CodeEquipment Original TextEquipment IdentifierDates Phacoemulsification of cataract with intraocular lens implantationLENS ACRYSOF IOL WN16O1OUUJyjnv: 17-67-3882Czovispfpgcmvzmusyn of cataract with intraocular lens implantationLENS ACRYSOF IOL XD13Z3TKPAiqcd: 77-59-9618Rwwcnahyumxjulduped of cataract with intraocular lens implantationLENS ACRYSOF IOL CK15P5OTOZbuwl: 59-18-7394Gmaigoyhtagocekffny of cataract with intraocular lens implantationLENS ACRYSOF IOL WO09E9ZHPSnarp: 73-04-5949Camfgdiakiqgsdspmnz of cataract with intraocular lens implantationLENS ACRYSOF IOL YS25I3QQJZhjeb: 10-22-2017 Phacoemulsification of cataract with intraocular lens implantationLENS ACRYSOF IOL LR84Y9FKQOvxey: 92-68-2841Nevgvxwbzxhoiwhhkcs of cataract with intraocular lens implantationLENS ACRYSOF IOL QX98Y0GYVGxzvy: 96-62-4078Icbmqonewkovgoznqsw of cataract with intraocular lens implantationLENS ACRYSOF IOL KI86I9YGCQwcwk: 98-05-2566Pjfvdwydjyiihtcuhjs of cataract with intraocular lens implantationLENS ACRYSOF IOL BF55Q9VVTBbyzr: 50-04-6700Hybcwrpfzdkqfyihdvg of cataract with intraocular lens implantationLENS ACRYSOF IOL ET53P8XPGTkylu: 10-22-2017 Phacoemulsification of cataract with intraocular lens implantationLENS ACRYSOF IOL KG04L0IXZXgnlw: 97-24-4850Ivgbcymygscgzgslhqn of cataract with intraocular lens [id number] 056 FDAStart: 64-79-1306Ktcqfyarlwstgxoadtc of cataract with intraocular lens implantationLENS ACRYSOF IOL QT28M7DUYSgihm: 63-53-1460Kwlfftdusyjltscsyyx of cataract with intraocular lens implantationLENS ACRYSOF IOL JG51A8GZQPfbsr: 10-22-2017 Phacoemulsification of cataract with intraocular lens implantationLENS ACRYSOF IOL FL44O9NPIHotor: 93-78-3587Xlrhflhyzvcgvmloosc of cataract with intraocular lens implantationLENS ACRYSOF IOL QF30D2ZZYRzegu: 70-89-9089Sauzxdjtybhvilfrjcu of cataract with intraocular lens implantationLENS ACRYSOF IOL IA11R5QXPXrfbt: 77-94-2788Acvduynymwezoklajuc of cataract with intraocular lens implantationLENS ACRYSOF IOL WR76V9XDBNrbhi: 07-98-8135Uxpdpdxgjzgbispofsw of cataract with intraocular lens implantationLENS ACRYSOF IOL EL14I9JUTWkqsw: 10-22-2017 Phacoemulsification of cataract with intraocular lens implantationLENS ACRYSOF IOL BY38H8EBACghee: 65-89-7374Vunykfbmmhbpwrqeumw of cataract with intraocular lens implantationLENS ACRYSOF IOL HV23D7JHHMdfrp: 57-54-0907Nsuhrvkadghlfgsupyi of cataract with intraocular lens implantationLENS ACRYSOF IOL UW19Y0OQWJxaqv: 45-91-3798Xddikgawkcdyjaxocwe of cataract with intraocular lens implantationLENS ACRYSOF IOL LM54X2UYEYhvyd: 80-41-3709Lgyfcgbjjznimklrhrm of cataract with intraocular lens implantationLENS ACRYSOF IOL YK63F8YQULantw: 10-22-2017 Phacoemulsification of cataract with intraocular lens implantationLENS ACRYSOF IOL UP85Z1TQDAekad: 95-29-7540Ymyjokkvofcqderroni of cataract with intraocular lens implantationLENS ACRYSOF IOL VZ47M5JXRYazih: 77-36-6171Vuzqwkanfyjsqsjctfd of cataract with intraocular lens implantationLENS ACRYSOF IOL BC04L7MDZKdbgm: 87-68-3813Bugxldlvougxoqhcfxh of cataract with intraocular lens implantationLENS ACRYSOF IOL WA73S9KNURwtag: 27-17-5954Uoleeabmgybrfzqmlym of cataract with intraocular lens implantationLENS ACRYSOF IOL DC88N6HDWZeizm: 10-22-2017 Phacoemulsification of cataract with intraocular lens implantationLENS ACRYSOF IOL SO74N4CBURauri: 07-47-0003Mjkxcdbydkgxomjzuja of cataract with intraocular lens implantationLENS ACRYSOF IOL BS31F2UPFPyyox: 58-39-9307Awxgsgsjtwwjpxowdnx of cataract with intraocular lens implantationLENS ACRYSOF IOL OS73X0XIHYtvkk: 01-44-4268Jcpwtynbycxfuvwerwu of cataract with intraocular lens implantationLENS ACRYSOF IOL QY19O8LIDZfsvf: 58-90-9528Wbkmzhqvvskrnexnzuq of cataract with intraocular lens implantationFDAStart: 93-60-4028Aspmjitdjnntyyybtwm of cataract with intraocular lens implantationFDAStart: 28-98-5429Mauodepuqsoekmpolxn of cataract with intraocular lens implantationFDAStart: 10-22-2017 Phacoemulsification of cataract with intraocular lens implantationFDAStart: 27-62-4206Fqwlocmuuefbgcikksg of cataract with intraocular lens implantationFDA Start: 13-16-7122Cpkaxstrsypsfpxfuon of cataract with intraocular lens implantationFDAStart: 33-23-8571Gnnugyyngmflrobohyy of cataract with intraocular lens implantationLENS ACRYSOF IOL PJ32E8MWMYgddq: 72-80-3140Iaaftkqtrpdizzwtrvl of cataract with intraocular lens implantationFDAStart: 10-22-2017 Phacoemulsification of cataract with intraocular lens implantationFDAStart: 85-00-4465Rekmrvuiixzbandrtyc of cataract with intraocular lens implantationFDA Start: 37-45-1734Felnttycqhrffrjnkxa of cataract with intraocular lens implantationFDAStart: 94-90-020836101899, 60277564Zkvyp: 08-07-2021 End: 11-15-2025 Goals DatePatient GoalDesired Activity/State Functional Status JjajSwqpqvqivgBsuvrnXdbmksqr46-83-4708Xsdugfmavo statusPatient at Baseline [facility] Work Phone: Mental Status OoaaSfzfjaoyqiGusmolWykxfsfk34-00-0785Hzovmpgoy functionPatient at Baseline [facility] Work Phone: Clinical Notes 02-27-2021 to 12-27-2024 Note Date & NjfpQkusXjdmztnr31-76-4703 History and physical note Author Margarito Rajan [facility] HealthNote Date/TimeSeptember 2024 4:39pm [place] [address] Hospitalist H&P Signed Patient: Kelsea Turcios MR#: [id number] : 1960 Acct:[id number] Age/Sex: 64 / F Adm Date: 5 Loc: ER Room: Type: [facility] ER Attending Dr: Copies to: MD Peri Steve, DO Margarito Rajan MD~ HPI DATE OF EXAMINATION: 12/27/24 CHIEF COMPLAINT: fevers with thrombocytopenia HISTORY OF PRESENT ILLNESS: Kelsea Turcios is a 64 y/o F, h/o HTN, CKD IIIb, COPD on 3-5 L baseline NC, 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 and started on active chemotherapy with [...] negative unless noted below or in HPI [facility] Medical History (Updated 12/27/24 @ 16:36 [...] glargine 100 unit/mL (3 mL) subcutaneous pen (Jhonnyagllee ann Gomez U-100 Insulin) 40 unit subcut QHS 08/16/21 [History Confirmed 12/27/24] insulin lispro-aabc 100 unit/mL subcutaneous pen (Shannenbentomasz IrwinlevyChaparro U-100 Insulin)40 unit subcut TID.AC 12/05/22 [History [...] % (Auto) 44.4 % (.) 12/27/24 05:21 [place] % (Auto) 10.0 % (.) 12/27/24 05:21 Eos % (Auto) 11.8 % (.) 12/27/24 05:21 Baso % (Auto) 0.5 % (.) 12/27/24 05:21 Nucleat RBC Rel Count 0.2 /100 WBC (0-0.5) 12/27/24 05:21 Neut # (Auto) 0.6 x10E3/uL (1.8-7.7) L 12/27/24 05:21 Lymph # (Auto) 0.8 x10E3/uL (1.00-4.8) L 12/27/24 05:21 [place] # (Auto) 0.2 x10E3/uL (0.0-0.8) 12/27/24 05:21 [...] NC, 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 and started on active chemotherapy with [...] baseline NC, MGUS with recent progression toIgG [place] myeloma and started on active chemotherapy - [...] <Electronically signed by Margarito Rajan MD> 12/27/24 [facility] Work Phone: 1(147) 101-435509-16-2025 Radiology Diagnostic study noteKettering Health09-08-2025 History of Present illness Narrative* Mack Tsai DPM - 12/19/2024 9:00 AM EDT Patient: Kelsea Turcios : 1960 [...] 01/14/2024 Anemia Anxiety Arthritis Bipolar 1 disorder ([facility]) 01/14/2024 Bipolar disorder with depression ([facility]) 01/14/2024 Breast cancer screening by mammogram 01/14/2024 Chronic depression 01/14/2024 Chronic fatigue 01/14/2024 Chronic hypercapnic respiratory failure ([facility]) 01/14/2024 Chronic kidney disease, stage 3 unspecified ([facility]) COPD (chronic obstructive pulmonary disease) ([facility]) Debility 01/14/2024 Degenerative joint disease of cervical and lumbar spine 01/14/2024 Dehydration 01/14/2024 Diabetes ([facility]) 01/14/2024 Diabetic neuropathy ([facility]) 07/15/2023 Diarrhea 01/14/2024 Difficulty walking Disorder of sacroiliac joint 01/14/2024 DM type 2 (diabetes mellitus, type 2) ([facility]) Elevated troponin 01/14/2024 Epigastric pain 01/14/2024 Gait instability 01/14/2024 GERD (gastroesophageal reflux disease) Hallucinations, visual 01/14/2024 Hemosiderin pigmentation of skin 01/14/2024 Hypertension Hypomagnesemia 01/14/2024 Hypothyroidism 01/14/2024 Iron deficiency anemia 01/14/2024 Irritable bowel disease 01/14/2024 Kidney disease 01/14/2024 halfway (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 ([facility]) 01/14/2024 Lumbar degenerative disc disease 01/14/2024 Lumbar spondylolysis Lumbosacral spondylosis without myelopathy 01/14/2024 Major depressive disorder with psychotic features ([facility]) 01/14/2024 Mixed hyperlipidemia Monoclonal gammopathy 01/14/2024 Morbid obesity with BMI of 40.0-44.9, adult ([facility]) Morbid obesity with BMI of 45.0-49.9, adult ([facility]) 01/14/2024 Multiple falls 01/14/2024 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) ([facility]) 01/14/2024 OM (onychomycosis) On home oxygen therapy 01/14/2024 TANYA (obstructive sleep apnea) Osteoarthritis of back Other chronic pain 01/14/2024 Peripheral edema 01/14/2024 Pruritic erythematous rash 01/14/2024 Rhabdomyolysis 01/14/2024 Stage 3 chronic kidney disease ([facility]) 01/14/2024 Symptomatic varicose veins of both lower extremities 01/14/2024 Thyroid disease 01/14/2024 Type 2 diabetes mellitus without complications ([facility]) 01/14/2024 Ulcer of left lower leg ([facility]) 01/14/2024 UTI (urinary tract infection) 01/14/2024 Venous reflux 01/14/2024 Venous stasis ulcer limited to breakdown of skin without varicose veins ([facility]) 01/14/2024 Vitamin D deficiency, unspecified [...] Needle Micro U/F 32G X 6 MM [facility] [place] , Disp: , Rfl: budesonide-formoterol (Symbicort) 160-4.5 [...] Disp:, Rfl: Cholecalciferol (Vitamin D) 50 MCG (2000 UT) [...] misc, , Disp: , Rfl: Continuous Glucose Supervisor Graphite (FreeStyle Alfredo 3 [place]) device, USE DIRECTED, Disp: 1 each, Rfl: [...] SUGARS., Disp: 200 each, Rfl: 1 HYDROcodone-acetaminophen (Hesperia) 5-325 MG tablet, , Disp: , Rfl: [...] and negative PT pedal pulses NEURO: 5.07 [place] Rosi monofilament test diminished to digits and [...] refill. Mack Tsai DPM documented in this [facility]08-18-2025 Telephone encounter Note* Telephone Encounter - Jj Morgan - 11/28/2024 1:29 PM EDT Anthony from [employer] called about addies' sensors. Please call [phone]. Thank you! [id number] Miscellaneous Notes* Telephone Encounter - Jj Morgan - 11/28/2024 1:29 PM EDT Anthony from [employer] called about addies' sensors. Please call [phone]. Thank you! documented in this [facility]08-12-2025 Evaluation note* Diagnosis Onset Date Resolution Status [...] extremitiesresolvedSeptember 2024 8:30amAcute kidney injury superimposed on CKDacuteSeptember 2024 8:56amBMI 40.0-44.9, adultacute December 27, 2024 8:56amEncounter for chemotherapy managementacuteSeptember 2024 8:56amHypokalemiaacuteSeptember 2024 8:56amIgG myelomaacute December 27, 2024 8:56amNeutropeniaacuteSeptember 2024 8:56am Neutropenic feveracuteSeptember 2024 8:56amOn home oxygen therapyacute December 27, 2024 8:56amPneumoniaacuteSeptember 2024 8:56amStage 3b chronic kidney diseaseacuteSeptember 2024 8:56amThrombocytopeniaacute December 27, 2024 8:56amType 2 diabetes mellitus with diabetic neuropathy, unspecifiedacuteSeptember 2024 8:56amBipolar 1 disorderchronicSeptember 2024 8:56amCOPD (chronic obstructive pulmonary disease)chronicSeptember 2024 8:56amHypertensionchronicSeptember 2024 8:56amOSA (obstructive sleep apnea)chronicSeptember 2024 8:56amAcute ITPdeletedSeptember 2024 8:56amCancer related painacuteOctober 2024 11:13amEncounter for chemotherapy managementacuteOctober 2024 11:13amHistory of iron deficiency anemiaacuteOctober 2024 [...] 2024 9:59amDiabetesinactiveOctober 2024 9:59amMorbid obesityinactiveOctober 2024 9:59am [facility] Work Phone: 1([phone]) 590-343708-12-2025 Evaluation note* Diagnosis Onset Date Resolution Status [...] extremitiesresolvedSeptember 2024 8:30amAcute kidney injury superimposed on CKDacuteSeptember 2024 8:56amBMI 40.0-44.9, adultacute December 27, 2024 8:56amEncounter for chemotherapy managementacuteSeptember 2024 8:56amHypokalemiaacuteSeptember 2024 8:56amIgG myelomaacute December 27, 2024 8:56amNeutropeniaacuteSeptember 2024 8:56am Neutropenic feveracuteSeptember 2024 8:56amOn home oxygen therapyacute December 27, 2024 8:56amPneumoniaacuteSeptember 2024 8:56amStage 3b chronic kidney diseaseacuteSeptember 2024 8:56amThrombocytopeniaacute December 27, 2024 8:56amType 2 diabetes mellitus with diabetic neuropathy, unspecifiedacuteSeptember 2024 8:56amBipolar 1 disorderchronicSeptember 2024 8:56amCOPD (chronic obstructive pulmonary disease)chronicSeptember 2024 8:56amHypertensionchronicSeptember 2024 8:56amOSA (obstructive sleep apnea)chronicSeptember 2024 8:56amAcute ITPdeletedSeptember 2024 8:56amCancer related painacuteOctober 2024 11:13amEncounter for chemotherapy managementacuteOctober 2024 11:13amHistory of iron deficiency anemiaacuteOctober 2024 [...] stasis dermatitis of both lower extremitiesresolvedOctober 2024 11:13am Cancer related painacuteOctober 2024 9:06amEncounter for chemotherapy managementacuteOctober 2024 9:06amHistory of iron deficiency anemiaacute February 08, 2025 9:06amIgG myelomaacuteOctober 2024 9:06amPruritic erythematous rashacuteOctober 2024 9:06amThrombocytopeniaacuteOctober 2024 9:06amBipolar 1 disorderchronicOctober 2024 9:06amCOPD (chronic obstructive pulmonary disease)chronicOctober 2024 9:06amDiabetic neuropathy associated with diabetes mellitus due to underlyingchronicOctober 2024 9:06amHypertensionchronicOctober 2024 9:06amCKD (chronic kidney disease) stage 3, GFR 30-59 ml/minresolvedOctober 2024 9:06amMorbid obesity with BMI of 45.0-49.9, adultresolvedOctober 2024 9:06amVenous stasis dermatitis of both lower extremitiesresolvedOctober 2024 9:06amCOPD (chronic obstructive pulmonary disease)chronicOctober 2024 9:59am Degenerative joint disease of cervical and lumbar spinechronicOctober 2024 9: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)chronicOctober 2024 9:59amCKD (chronic kidney disease) stage 3, GFR 30-59 ml/minresolvedOctober 2024 9:59amIron deficiency anemiaresolved February 08, 2025 9:59amBipolar disorder with depressioninactiveOctober 2024 9:59amDiabetesinactiveOctober 2024 9:59amMorbid obesityinactive February 08, 2025 9:59amHypothyroidismacuteOctober 2024 8:14amMedicare annual wellness visit, initialacuteFebruary 10, 2025 8:14amType 2 diabetes mellitus with diabetic neuropathy, unspecifiedacuteOctober 2024 8:14am [facility] Work Phone: 1(595) 306-775608-12-2025 Evaluation note* Diagnosis Onset Date Resolution Status [...] 2024 11:11amVenous stasis dermatitis of both lower extremitiesresolvedAuchin[facility] facilityt 2024 11:11amCancer related painacuteSeptember 2024 8:30amEncounter for chemotherapy managementacuteSeptember 2024 8:30amHistory of iron deficiency anemiaacuteSeptember 2024 8:30amIgG myelomaacuteSeptember 2024 8:30amBipolar 1 disorderchronicSeptember 2024 8:30amCOPD (chronic obstructive pulmonary disease)chronicSeptember 2024 8:30amDiabetic neuropathy associated with diabetes mellitus due to underlyingchronicSeptember 2024 8:30amHypertensionchronicSeptember 2024 8:30amCKD (chronic kidney disease) stage 3, GFR 30-59 ml/minresolved December 21, 2024 8:30amFever of unknown origin (FUO)resolvedSept2024 8:30amMorbid obesity with BMI of 45.0-49.9, adultresolvedptember 2024 8:30amPruritic erythematous rashresolvedSeptember 2024 8:30amVenous stasis dermatitis of both lower extremitiesresolvedSeptember 2024 8:30am BMI 40.0-44.9, adultacuteSeptember 2024 8:56amEncounter for chemotherapy managementacuteSeptember 2024 8:56amIgG myelomaacuteSeptember 2024 8:56amOn home oxygen therapyacuteSeptember 2024 8:56amStage 3b chronic kidney diseaseacuteSeptember 2024 8:56amThrombocytopeniaacuteSeptember 2024 8:56amType 2 diabetes mellitus with diabetic neuropathy, unspecified acuteSeptember 2024 8:56amBipolar 1 disorderchronicSeptember 2024 8:56amCOPD (chronic obstructive pulmonary disease)chronicSeptember 2024 8:56amHypertensionchronicSeptember 2024 8:56amOSA (obstructive sleep apnea)chronicSeptember 2024 8:56amAcute kidney injury superimposed on CKD resolvedSeptember 2024 8:56amHypokalemiaresolvedSeptember 2024 8:56amNeutropeniaresolvedSeptember 2024 8:56amNeutropenic feverresolved December 27, 2024 8:56amPneumoniaresolvedSeptember 2024 8:56amAcute ITP deletedSeptember 2024 8:56amCancer related painacuteOct2024 11:13amEncounter for chemotherapy managementacuteJanuary 18, 2025 11:13am History of iron deficiency anemiaacuteOct2024 11:13amIgG myelomaacute January 18, 2025 11:13amThrombocytopeniaacuteJanuary 18, 2025 11:13amBipolar 1 disorderchronicOctober 2024 11:13amCOPD (chronic obstructive pulmonary disease)chronicOctober 2024 11:13amDiabetic neuropathy associated with diabetes mellitus due to underlyingchronicOctober 2024 11:13amHypertension chronicOctober 2024 11:13amCKD (chronic kidney disease) stage 3, GFR 30-59 ml/minresolvedOctober 2024 11:13amMorbid obesity with BMI of 45.0-49.9, adultresolvedOctober 2024 11:13amPruritic erythematous rashresolvedOctober 2024 11:13amVenous stasis dermatitis of both lower extremitiesresolved [...] 2024 8:14am Chronic hypercapnic respiratory failurechronicOctober 2024 8:14amCOPD (chronic obstructive pulmonary disease)chronicNovember 2024 10:14am Degenerative joint disease of cervical and lumbar spinechronicNovember 2024 10:14am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)chronicNovember 2024 10:14amCKD (chronic kidney disease) stage 3, GFR 30-59 ml/minresolvedNovember 2024 10:14amIron deficiency anemiaresolved February 13, 2025 10:14amBipolar disorder with depressioninactiveNov2024 10:14amDiabetesinactiveNov2024 10:14amMorbid obesityinactive February 13, 2025 10:14am [facility] Work Phone: 1(945) 341-489708-12-2025 Evaluation note* Diagnosis Onset Date Resolution Status [...] 11:11amCancer related painacuteSeptember 2024 8:30amEncounter for chemotherapy managementacuteSeptember 2024 8:30amHistory of iron deficiency anemiaacuteSeptember 2024 8:30amIgG myelomaacuteSeptember 2024 8:30amBipolar 1 disorderchronicSeptember 2024 8:30amCOPD (chronic obstructive pulmonary disease)chronicSeptember 2024 8:30amDiabetic neuropathy associated with diabetes mellitus due to underlyingchronicSept2024 8:30amHypertensionchronicSeptember 2024 8:30amCKD (chronic kidney disease) stage 3, GFR 30-59 ml/minresolved Sarahy 2024 8:30amFever of unknown origin (FUO)resolvedSept2024 8:30amMorbid obesity with BMI of 45.0-49.9, adultresolvedSeptember 2024 8:30amPruritic erythematous rashresolvedSeptember 2024 8:30amVenous stasis dermatitis of both lower extremitiesresolvedSeptember 2024 8:30am BMI 40.0-44.9, adultacuteSeptember 2024 8:56amEncounter for chemotherapy managementacuteSeptember 2024 8:56amIgG myelomaacuteSeptember 2024 8:56amOn home oxygen therapyacuteSeptember 2024 8:56amStage 3b chronic kidney diseaseacuteSeptember 2024 8:56amThrombocytopeniaacuteSeptember 2024 8:56amType 2 diabetes mellitus with diabetic neuropathy, unspecified acuteSeptember 2024 8:56amBipolar 1 disorderchronicSeptember 2024 8:56amCOPD (chronic obstructive pulmonary disease)chronicSeptember 2024 8:56amHypertensionchronicSeptember 2024 8:56amOSA (obstructive sleep apnea)chronicSeptember 2024 8:56amAcute kidney injury superimposed on CKD resolvedSeptember 2024 8:56amHypokalemiaresolvedptember 2024 8:56amNeutropeniaresolvedSeptember 2024 8:56amNeutropenic feverresolved December 27, 2024 8:56amPneumoniaresolvedSeptember 2024 8:56amAcute ITP deletedSept2024 8:56amCancer related painacuteOctober 2024 11:13amEncounter for chemotherapy managementacuteOctober 2024 11:13am History of iron deficiency anemiaacuteOctober 2024 11:13amIgG myelomaacute January 18, 2025 11:13amThrombocytopeniaacuteOctober 2024 11:13amBipolar 1 disorderchronicOctober 2024 11:13amCOPD (chronic obstructive pulmonary disease)chronicOctober 2024 11:13amDiabetic neuropathy associated with diabetes mellitus due to underlyingchronicOctober 2024 11:13amHypertension chronicOctober 2024 11:13amCKD (chronic kidney disease) stage 3, GFR 30-59 ml/minresolvedOctober 2024 11:13amMorbid obesity with BMI of 45.0-49.9, adultresolvedOctober 2024 11:13amPruritic erythematous rashresolvedOctober 2024 11:13amVenous stasis dermatitis of both lower extremitiesresolved [...] Chronic hypercapnic respiratory failurechronicOctober 2024 8:14amCancer related painacuteNovember 2024 1:17pmEncounter for chemotherapy management acuteNovember 2024 1:17pmHistory of iron deficiency anemiaacuteNovember 2024 1:17pmIgG myelomaacuteNovember 2024 1:17pmThrombocytopeniaacute February 20, 2025 1:17pmBipolar 1 disorderchronicAtrium Health2024 1:17pm COPD (chronic obstructive pulmonary disease)chronicAtrium Health2024 1:17pm Diabetic neuropathy associated with diabetes mellitus due to underlyingchronic February 20, 2025 1:17pmHypertensionchronicAtrium Health2024 1:17pmCKD (chronic kidney disease) stage 3, GFR 30-59 ml/minresolved[facility] 20[facility] 1:17pmMorbid obesity with BMI of 45.0-49.9, adultresGe[facility] 2024 1:17pmPruritic erythematous rashresDayton [facility]2024 1:17pmVenous stasis dermatitis of both lower extremitiesresGe[facility]er [facility] 2024 1:17pmCOPD (chronic obstructive pulmonary disease)[facility]2024 1:18pm Degenerative joint disease of cervical and lumbar spinechronResearch [facility]20[facility] 1: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)[facility]2024 1:18pmCKD (chronic kidney disease) stage 3, GFR 30-59 ml/minresGe[facility] 2024 1:18pmIron deficiency anemiaresGeisinger [facility] 2024 1:18pmBipolar disorder with depressioninactive February 20, 2025 1:18pmDiabetesinactiveAtrium Health2024 1:18pmMorbid obesityinactiveAtrium Health2024 1:18pm [facility] Work Phone: 1(213) 870-779808-04-2025 History of Present illness Narrative* Jeannie Aguilar [...] blood sugar levels. She is currently on Dzyatw76 units and NovoLog 40 units with every meal. Additionally, she has started Ozempic at a dose of 0.5 mg once weekly and xiga. IM : 05/2024 follow up visit on [...] New patient sent from Pain Management in [place], Dr. Brenden Groves, for uncontrolled diabetes. A1c [...] Needle Micro U/F 32G X 6 MM [facility] budesonide-formoterol (Symbicort) 160-4.5 MCG/ACT inhaler 2 puffs, [...] (FreeStyle Alfredo 2 Sensor) [facility] Continuous Glucose Supervisor Graphite (FreeStyle Alfredo 3 [place]) device USE DIRECTED Continuous Glucose Sensor (FreeStyle [...] tablet gabapentin (Neurontin) 600 MG tablet HYDROcodone-acetaminophen ([place]es[place]) 5-325 MG tablet hydrOXYzine HCl (Atarax) 10 [...] 01/14/2024 Anemia Anxiety Arthritis Bipolar 1 disorder ([facility]) 01/14/2024 Bipolar disorder with depression ([facility]) 01/14/2024 Breast cancer screening by mammogram 01/14/2024 Chronic depression 01/14/2024 Chronic fatigue 01/14/2024 Chronic hypercapnic respiratory failure ([facility]) 01/14/2024 Chronic kidney disease, stage 3 unspecified ([facility]) COPD (chronic obstructive pulmonary disease) ([facility]) Debility 01/14/2024 Degenerative joint disease of cervical and lumbar spine 01/14/2024 Dehydration 01/14/2024 Diabetes ([facility]) 01/14/2024 Diabetic neuropathy ([facility]) 07/15/2023 Diarrhea 01/14/2024 Difficulty walking Disorder of sacroiliac joint 01/14/2024 DM type 2 (diabetes mellitus, type 2) ([facility]) Elevated troponin 01/14/2024 Epigastric pain 01/14/2024 Gait instability 01/14/2024 GERD (gastroesophageal reflux disease) Hallucinations, visual 01/14/2024 Hemosiderin pigmentation of skin 01/14/2024 Hypertension Hypomagnesemia 01/14/2024 Hypothyroidism 01/14/2024 Iron deficiency anemia 01/14/2024 Irritable bowel disease 01/14/2024 Kidney disease 01/14/2024 halfway (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 ([facility]) 01/14/2024 Lumbar degenerative disc disease 01/14/2024 Lumbar spondylolysis Lumbosacral spondylosis without myelopathy 01/14/2024 Major depressive disorder with psychotic features ([facility]) 01/14/2024 Mixed hyperlipidemia Monoclonal gammopathy 01/14/2024 Morbid obesity with BMI of 40.0-44.9, adult ([facility]) Morbid obesity with BMI of 45.0-49.9, adult ([facility]) 01/14/2024 Multiple falls 01/14/2024 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) ([facility]) 01/14/2024 OM (onychomycosis) On home oxygen therapy 01/14/2024 TANYA (obstructive sleep apnea) Osteoarthritis of back Other chronic pain 01/14/2024 Peripheral edema 01/14/2024 Pruritic erythematous rash 01/14/2024 Rhabdomyolysis 01/14/2024 Stage 3 chronic kidney disease (CMS-HCC) 01/14/2024 Symptomatic varicose veins of both lower [...] hyperglycemia, with long-term current use of insulin ([facility]) - POCT glucose manually resulted - POCT glycosylated hemoglobin (Hb A1C) docked device - insulin glargine (Lantus SoloStar) 100 UNIT/ML pen; Inject 40 Units under the skin in the morningand 40 Units before bedtime. - semaglutide (Ozempic, 1 MG/DOSE,) 2 MG/1.5ML solution pen-injector; Inject 1 mg under the skin 1 (one) time per week Primary hypertension Hyperlipemia, mixed Insulin long-term use (HCC) Encounter for dietary consultation Stage 3b chronic kidney disease ([facility]) Assessment & Plan 1. Diabetes Mellitus: Not [...] 3 months (around 02/14/2025). documented in this encounterSac-[facility] [id number] Evaluation note* Diagnosis Onset Date Resolution Status [...] of iron deficiency anemiaacuteAugust 2024 11:23amIgG myelomaacute [place] 2024 11:23amPruritic erythematous rashacuteAugust 2024 11:23amBipolar 1 [...] 2024 8:30amMorbid obesity with BMI of 45.0-49.9, adultresolvedSept2024 8:30amVenous stasis dermatitis of both lower extremitiesresolvedpt2024 8:30amAcute kidney injury superimposed on CKDacuteSeptember 2024 8:56amBMI 40.0-44.9, adultacute December 27, 2024 8:56amEncounter for chemotherapy managementacuteSept2024 8:56amHypokalemiaacuteSept2024 8:56amIgG myelomaacute December 27, 2024 8:56amNeutropeniaacuteSept2024 8:56am Neutropenic feveracuteSept2024 8:56amOn home oxygen therapyacute December 27, 2024 8:56amPneumoniaacuteSept2024 8:56amStage 3b chronic kidney diseaseacuteSept2024 8:56amThrombocytopeniaacute December 27, 2024 8:56amType 2 diabetes mellitus with diabetic neuropathy, unspecifiedacuteSeptember 2024 8:56amBipolar 1 disorderchronicSeptember 2024 8:56amCOPD (chronic obstructive pulmonary disease)chronicSeptember 2024 8:56amHypertensionchronicSeptember 2024 8:56amOSA (obstructive sleep apnea)chronicSept2024 8:56amAcute ITPdeletedpt2024 8:56amCOPD (chronic obstructive pulmonary disease)chronicOctober 2024 11:13amDegenerative [...] visit after completion of treatmentnoneactiveOctober 2024 11:13am [facility] Work Phone: 1(614) 313-310606-26-2025 Evaluation note* Diagnosis Onset Date Resolution Status [...] of iron deficiency anemiaacuteAugust 2024 11:23amIgG myelomaacute [place] 2024 11:23amPruritic erythematous rashacuteAugust 2024 11:23amBipolar 1 [...] 2024 9:44amDiabetesinactiveAugust 2024 9:44amMorbid obesityinactiveAugust 2024 9:44am [facility] Work Phone: 1(356) 968-813806-26-2025 Evaluation note* Diagnosis Onset Date Resolution Status [...] 2024 8:58amDiabetesinactiveSeptember 2024 8:58amMorbid obesityinactiveSeptember 2024 8:58am [facility] Work Phone: 1(259) 341-569406-26-2025 Evaluation note* Diagnosis Onset Date Resolution Status [...] with diabetes mellitus due to underlyingchronicAugust 2024 11:23amHypertensionchronicAugu2024 11:23amCKD (chronic kidney disease) stage 3, GFR [...] with depressioninactiveSeptember 2024 9:59amDiabetesinactiveSeptember 2024 9:59amMorbid obesity inactiveSept2024 9:59am [facility] Work Phone: [phone]) [phone] Evaluation note* Diagnosis Onset Date Resolution Status [...] of iron deficiency anemiaacuteAugust 2024 11:23amIgG myelomaacute [place] 2024 11:23amPruritic erythematous rashacuteAugust 2024 11:23amBipolar 1 [...] myelomaacuteSeptember 2024 8:56amNeutropeniaacuteSeptember 2024 8:56amOn home oxygen therapyacuteSeptember 2024 8:56amPneumoniaacute December 27, 2024 8:56amStage 3b chronic kidney diseaseacuteSeptember 2024 8:56amThrombocytopeniaacuteSeptember 2024 8:56amType 2 diabetes mellitus with diabetic neuropathy, unspecifiedacuteSeptember 2024 8:56am Bipolar 1 disorderchronicSeptember 2024 8:56amCOPD (chronic obstructive pulmonary disease)chronicSeptember 2024 8:56amHypertensionchronicSeptember 2024 8:56amOSA (obstructive sleep apnea)chronicSeptember 2024 8:56am [facility] Work Phone: 1([phone]) 415-830806-26-2025 Evaluation note* Diagnosis Onset Date Resolution Status [...] with diabetes mellitus due to underlyingchronicAugust 2024 11:23amHypertensionchronicAugu2024 11:23amCKD (chronic kidney disease) stage 3, GFR [...] with depressioninactiveSeptember 2024 9:59amDiabetesinactiveSeptember 2024 9:59amMorbid obesity inactiveSept2024 9:59amAcute ITPacuteSeptember 2024 8:56am Acute kidney injury superimposed on CKDacuteSeptember 2024 8:56amBMI 40.0- 44.9, adultacuteSeptember 2024 8:56amEncounter for chemotherapy management acuteSeptember 2024 8:56amHypokalemiaacuteSeptember 2024 8:56amIgG myelomaacuteSept2024 8:56amNeutropeniaacuteSept2024 8:56amNeutropenic feveracuteSept2024 8:56amOn home oxygen therapy acuteSept2024 8:56amPneumoniaacuteSept2024 8:56amStage 3b chronic kidney diseaseacuteSept2024 8:56amThrombocytopeniaacute December 27, 2024 8:56amType 2 diabetes mellitus with diabetic neuropathy, unspecifiedacuteSept2024 8:56amBipolar 1 disorderchronicSept2024 8:56amCOPD (chronic obstructive pulmonary disease)chronicSept2024 8:56amHypertensionchronicSept2024 8:56amOSA (obstructive sleep apnea)chronicSept2024 8:56am [facility] Work Phone: 1(474) 861-443406-20-2025 History of Present illness Narrative* Mack Tsai, FRANDY - 09/30/2024 10:10 AM EDT Patient: Kelsea Rojo Tam : [...] Chronic fatigue 01/14/2024 Chronic hypercapnic respiratory failure ([facility]) 01/14/2024 Chronic kidney disease, stage 3 unspecified ([facility]) COPD (chronic obstructive pulmonary disease) ([facility]) Debility 01/14/2024 Degenerative joint disease of cervical and lumbar spine 01/14/2024 Dehydration 01/14/2024 Diabetes ([facility]) 01/14/2024 Diabetic neuropathy ([facility]) 07/15/2023 Diarrhea 01/14/2024 Difficulty walking Disorder of sacroiliac joint 01/14/2024 DM type 2 (diabetes mellitus, type 2) ([facility]) Elevated troponin 01/14/2024 Epigastric pain 01/14/2024 Gait instability 01/14/2024 GERD (gastroesophageal reflux disease) Hallucinations, visual 01/14/2024 Hemosiderin pigmentation of skin 01/14/2024 Hypertension Hypomagnesemia 01/14/2024 Hypothyroidism 01/14/2024 Iron deficiency anemia 01/14/2024 Irritable bowel disease 01/14/2024 Kidney disease 01/14/2024 long term care phlebotomist (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 ([facility]) 01/14/2024 Lumbar degenerative disc disease 01/14/2024 Lumbar spondylolysis Lumbosacral spondylosis without myelopathy 01/14/2024 Major depressive disorder with psychotic features ([facility]) 01/14/2024 Mixed hyperlipidemia Monoclonal gammopathy 01/14/2024 Morbid obesity with BMI of 40.0-44.9, adult ([facility]) Morbid obesity with BMI of 45.0-49.9, adult ([facility]) 01/14/2024 Multiple falls 01/14/2024 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) ([facility]) 01/14/2024 OM (onychomycosis) On home oxygen therapy 01/14/2024 TANYA (obstructive sleep apnea) Osteoarthritis of back Other chronic pain 01/14/2024 Peripheral edema 01/14/2024 Pruritic erythematous rash 01/14/2024 Rhabdomyolysis 01/14/2024 Stage 3 chronic kidney disease ([facility]) 01/14/2024 Symptomatic varicose veins of both lower extremities 01/14/2024 Thyroid disease 01/14/2024 Type 2 diabetes mellitus without complications ([facility]) 01/14/2024 Ulcer of left lower leg ([facility]) 01/14/2024 UTI (urinary tract infection) 01/14/2024 Venous reflux 01/14/2024 Venous stasis ulcer limited to breakdown of skin without varicose veins (HCC) 01/14/2024 Vitamin D deficiency, unspecified Medications: Current [...] Needle Micro U/F 32G X 6 MM [facility], , Disp: , Rfl: budesonide-formoterol (Symbicort) 160-4.5 [...] (FreeStyle Alfredo 2 Sensor) [facility], , Disp: , Rfl: Continuous Glucose Supervisor Graphite (FreeStyle Alfredo 3 [place]) device, USE DIRECTED, Disp: 1 each, Rfl: 0 Continuous Glucose Sensor (FreeStyle Alfredo 3 Plus Sensor) [facility], 1 Bar Every 15 Days, Disp: 6 [...] MG tablet, , Disp: , Rfl: HYDROcodone-acetaminophen ([place]) 5-325 MG tablet, , Disp: , Rfl: [...] and negative PT pedal pulses NEURO: 5.07 [place] Rosi monofilament test diminished to digits and forefoot bilaterally 125Hz tuning fork diminished to 1st MPJ bilaterally ORTHO: Positive pain on palpation to toenails of the left 1,2,3,4,5 toes and right 1,2,3,4,5 toes Flexion deformity 2 through 5 digits right foot ASSESSMENT 1. Diabetes mellitus due to underlying condition with diabetic polyneuropathy, with long-term current use of insulin ([facility]) 2. Pain due to onychomycosis of toenails [...] refill. Mack Tsai DPM documented in this encounterSac-Osage [id number] Evaluation note* Diagnosis Onset Date Resolution Status [...] painacuteJune 2024 11:08amHistory of iron deficiency anemiaacute October 06, 2024 11:08amIgG myelomaacuteJune 2024 11:08amPruritic erythematous rashacuteJune [...] both lower extremitiesresolved November 22, 2024 11:23am [facility] Work Phone: 1(655) 851-645005-15-2025 History of Present illness Narrative* Svetlana Garcia, DO - 08/25/2024 1:30 PM EDT Images [...] Needle Micro U/F 32G X 6 MM [facility], , Disp: , Rfl: budesonide-formoterol (Symbicort) 160-4.5 [...] misc, , Disp: , Rfl: Continuous Glucose Supervisor Graphite (FreeStyle Alfredo 3 [place]) device, 1 Device Daily, Disp: 1 each, [...] MG tablet, , Disp: , Rfl: HYDROcodone-acetaminophen ([place]es[place]) 5-325 MG tablet, , Disp: , Rfl: [...] metabolic encephalopathy 01/14/2024 PETER (acute kidney injury) ([facility]) 01/14/2024 Anemia Anxiety Arthritis Bipolar 1 disorder ([facility]) 01/14/2024 Bipolar disorder with depression ([facility]) 01/14/2024 Breast cancer screening by mammogram 01/14/2024 Chronic depression ([facility]) 01/14/2024 Chronic fatigue 01/14/2024 Chronic hypercapnic respiratory failure ([facility]) 01/14/2024 Chronic kidney disease, stage 3 unspecified (HCC) ([facility]) COPD (chronic obstructive pulmonary disease) ([facility]) Debility 01/14/2024 Degenerative joint disease of cervical and lumbar spine 01/14/2024 Dehydration 01/14/2024 Diabetes ([facility]) 01/14/2024 Diabetic neuropathy ([facility]) 07/15/2023 Diarrhea 01/14/2024 Difficulty walking Disorder of sacroiliac joint 01/14/2024 DM type 2 (diabetes mellitus, type 2) ([facility]) Elevated troponin 01/14/2024 Epigastric pain 01/14/2024 Gait instability 01/14/2024 GERD (gastroesophageal reflux disease) Hallucinations, visual 01/14/2024 Hemosiderin pigmentation of skin 01/14/2024 Hypertension ([facility]) Hypomagnesemia 01/14/2024 Hypothyroidism ([facility]) 01/14/2024 Iron deficiency anemia 01/14/2024 Irritable bowel disease 01/14/2024 Kidney disease 01/14/2024 long term care phlebotomist (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 ([facility]) 01/14/2024 Lumbar degenerative disc disease 01/14/2024 Lumbar spondylolysis Lumbosacral spondylosis without myelopathy 01/14/2024 Major depressive disorder with psychotic features ([facility]) 01/14/2024 Mixed hyperlipidemia (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) 01/14/2024 OM (onychomycosis) On home oxygen therapy 01/14/2024 TANYA (obstructive sleep apnea) Osteoarthritis of back Other chronic pain 01/14/2024 Peripheral edema 01/14/2024 Pruritic erythematous rash 01/14/2024 Rhabdomyolysis 01/14/2024 Stage 3 chronic kidney disease (HCC) ([facility]) 01/14/2024 Symptomatic varicose veins of both lower extremities 01/14/2024 Thyroid disease ([facility]) 01/14/2024 Type 2 diabetes mellitus without complications 01/14/2024 Ulcer of left lower leg ([facility]) 01/14/2024 UTI (urinary tract infection) 01/14/2024 Venous reflux 01/14/2024 Venous stasis ulcer limited to breakdown of skin without varicose veins ([facility]) 01/14/2024 Vitamin D deficiency, unspecified Social History: [...] Chronic obstructive pulmonary disease, unspecified COPD type ([facility]) Obstructive sleep apnea syndrome COPD -- she [...] TANYA. Svetlana Garcia DO documented in this encounterSac-Osage [id number] History of Present illness Narrative* Jeannie Aguilar [...] Continuous glucose monitoring is performed using the Floqq Alfredo system, although she reports difficulty in obtaining readings from the device. Results Labs: A1c is 10.9%, improved from previous value of 13%. Blood sugar is 186 mg/dL. Continuous Glucose Monitoring (CGM): - CGM System: Floqq Alfredo - Mean glucose: 214 mg/dL over [...] New patient sent from Pain Management in [place], Dr. Brenden Groves, for uncontrolled diabetes. A1c [...] (FreeStyle Alfredo 2 Sensor) [facility] Continuous Glucose Supervisor Graphite (FreeStyle Alfredo 3 [place]) device 1 Device, Does not apply, Daily Continuous Glucose Sensor (FreeStyle Alfredo 3 Plus Sensor) [facility] 1 Bar, Does not apply, Every 15 [...] Do not crush, chew, or split. HYDROcodone-acetaminophen ([place]) 5-325 MG tablet hydrOXYzine HCl (Atarax) 10 [...] metabolic encephalopathy 01/14/2024 PETER (acute kidney injury) ([facility]) 01/14/2024 Anemia Anxiety Arthritis Bipolar 1 disorder ([facility]) 01/14/2024 Bipolar disorder with depression ([facility]) 01/14/2024 Breast cancer screening by mammogram 01/14/2024 Chronic depression ([facility]) 01/14/2024 Chronic fatigue 01/14/2024 Chronic hypercapnic respiratory failure ([facility]) 01/14/2024 Chronic kidney disease, stage 3 unspecified ([facility]) ([facility]) COPD (chronic obstructive pulmonary disease) ([facility]) Debility 01/14/2024 Degenerative joint disease of cervical and lumbar spine 01/14/2024 Dehydration 01/14/2024 Diabetes ([facility]) 01/14/2024 Diabetic neuropathy ([facility]) 07/15/2023 Diarrhea 01/14/2024 Difficulty walking Disorder of sacroiliac joint 01/14/2024 DM type 2 (diabetes mellitus, type 2) ([facility]) Elevated troponin 01/14/2024 Epigastric pain 01/14/2024 Gait instability 01/14/2024 GERD (gastroesophageal reflux disease) Hallucinations, visual 01/14/2024 Hemosiderin pigmentation of skin 01/14/2024 Hypertension ([facility]) Hypomagnesemia 01/14/2024 Hypothyroidism ([facility]) 01/14/2024 Iron deficiency anemia 01/14/2024 Irritable bowel disease 01/14/2024 Kidney disease 01/14/2024 halfway (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 ([facility]) 01/14/2024 Lumbar degenerative disc disease 01/14/2024 Lumbar spondylolysis Lumbosacral spondylosis without myelopathy 01/14/2024 Major depressive disorder with psychotic features ([facility]) 01/14/2024 Mixed hyperlipidemia ([facility]) Monoclonal gammopathy 01/14/2024 Morbid obesity with BMI of 40.0-44.9, adult ([facility]) Morbid obesity with BMI of 45.0-49.9, adult (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) 01/14/2024 OM (onychomycosis) On home oxygen therapy 01/14/2024 TANYA (obstructive sleep apnea) Osteoarthritis of back Other chronic pain 01/14/2024 Peripheral edema 01/14/2024 Pruritic erythematous rash 01/14/2024 Rhabdomyolysis 01/14/2024 Stage 3 chronic kidney disease (HCC) ([facility]) 01/14/2024 Symptomatic varicose veins of both lower extremities 01/14/2024 Thyroid disease ([facility]) 01/14/2024 Type 2 diabetes mellitus without complications ([facility]) 01/14/2024 Ulcer of left lower leg ([facility]) 01/14/2024 UTI (urinary tract infection) 01/14/2024 Venous reflux 01/14/2024 Venous stasis ulcer limited to breakdown of skin without varicose veins ([facility]) 01/14/2024 Vitamin D deficiency, unspecified Past Surgical [...] hyperglycemia, with long-term current use of insulin ([facility]) - POCT glucose manually resulted - POCT glycosylated hemoglobin (Hb A1C) docked device - Continuous Glucose Sensor (FreeStyle Alfredo 3 Plus Sensor) misc; 1 Bar Every 15 Days - Continuous Glucose Supervisor Graphite (FreeStyle Alfredo 3 [place]) device; 1 Device Daily - semaglutide (Ozempic, 0.25 or 0.5 MG/DOSE,) 2 MG/1.5ML solution pen-injector; Inject 0.5 mg underthe skin 1 (one) time per week Vitamin D deficiency Primary hypertension (CMS/HCC) Hyperlipemia, mixed ([facility]) Insulin long-term use ([facility]) Encounter for dietary consultation Stage 3b chronic kidney disease (HCC) ([facility]) Class 3 severe obesity due to excess calories with serious comorbidity and body mass index (BMI) of45.0 to 49.9 in adult Type 2 diabetes mellitus with hyperglycemia ([facility]) - dapagliflozin (Farxiga) 10 MG; Take 1 [...] meal, and Farxiga as usual; ordered new Floqq Alfredo system 3 including meter and sensor. Follow up in about 3 months (around 11/22/2024). documented in this encounterSac-Osage [id number] Evaluation note* Diagnosis Onset Date Resolution Status Admit Date BMI 40.0-44.9, adult acuteApril 2024 8:21amMorbid (severe) obesity due to excess caloriesacute August 08, 2024 8:21amStage 3b chronic kidney diseaseacuteApril 2024 8:21amSwelling of hand jointacuteApril 2024 8:21amType 2 diabetes mellitus with diabetic neuropathy, unspecifiedacuteApril 2024 8:21amBipolar 1 disorderchronicApril 2024 8:21amCOPD (chronic obstructive pulmonary disease)chronicApril 2024 8:21am [facility] Work Phone: 1(627) 494-148404-28-2025 Evaluation note* Diagnosis Onset Date Resolution Status [...] kidney disease) stage 3, GFR 30-59 ml/minresolved October 06, 2024 11:08amIron deficiency anemiaresolvedJune 2024 11:08am Bipolar [...] 2024 11:08amVenous stasis dermatitis of both lower extremitiesresolvedCounts Include [facility] 20[facility] 11:08am [facility] Work Phone: 1(421) 682-221604-28-2025 Evaluation note* Diagnosis Onset Date Resolution Status [...] kidney disease) stage 3, GFR 30-59 ml/minresolved October 27, 2024 1:46pmIron deficiency anemiaresolvedJuly 2024 1:46pm Bipolar disorder with depressioninactiveJuly 2024 1:46pmDiabetesinactive October 27, 2024 1:46pmMorbid obesityinactiveJuly 2024 1:46pm [facility] Work Phone: 1(780) 763-388804-28-2025 Evaluation note* Diagnosis Onset Date Resolution Status [...] dermatitis of both lower extremitiesresolvedJuly 2024 1:46pm [facility] Work Phone: 1(154) 479-593102-12-2025 History of Present illness Narrative* Jeannie Aguilar [...] , CGM 3-51-45 % AVG 171. on xiga 5, lantus 50 units, Lyumjev 40 units bid plus sliding scale #2. IM : 10/2023 follow up visit on 10/21/2023, a1C 9.1, BG 116 , CGM 6-34-60 % AVG 193. on xiga , lantus 40 units, Lyumjev 40 units bid [...] New patient sent from Pain Management in [place], Dr. Brenden Groves, for uncontrolled diabetes. A1c [...] Do not crush, chew, or split. HYDROcodone-acetaminophen ([place]) 5-325 MG tablet TAKE 1 TABLET BY [...] metabolic encephalopathy 01/14/2024 PETER (acute kidney injury) ([facility]) 01/14/2024 Anemia Anxiety Arthritis Bipolar 1 disorder ([facility]) 01/14/2024 Bipolar disorder with depression ([facility]) 01/14/2024 Breast cancer screening by mammogram 01/14/2024 Chronic depression ([facility]) 01/14/2024 Chronic fatigue 01/14/2024 Chronic hypercapnic respiratory failure ([facility]) 01/14/2024 Chronic kidney disease, stage 3 unspecified (HCC) ([facility]) COPD (chronic obstructive pulmonary disease) ([facility]) Debility 01/14/2024 Degenerative joint disease of cervical and lumbar spine 01/14/2024 Dehydration 01/14/2024 Diabetes ([facility]) 01/14/2024 Diabetic neuropathy ([facility]) 07/15/2023 Diarrhea 01/14/2024 Difficulty walking Disorder of sacroiliac joint 01/14/2024 DM type 2 (diabetes mellitus, type 2) ([facility]) Elevated troponin 01/14/2024 Epigastric pain 01/14/2024 Gait instability 01/14/2024 GERD (gastroesophageal reflux disease) Hallucinations, visual 01/14/2024 Hemosiderin pigmentation of skin 01/14/2024 Hypertension ([facility]) Hypomagnesemia 01/14/2024 Hypothyroidism ([facility]) 01/14/2024 Iron deficiency anemia 01/14/2024 Irritable bowel disease 01/14/2024 Kidney disease 01/14/2024 long term care phlebotomist (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 ([facility]) 01/14/2024 Lumbar degenerative disc disease 01/14/2024 Lumbar spondylolysis Lumbosacral spondylosis without myelopathy 01/14/2024 Major depressive disorder with psychotic features ([facility]) 01/14/2024 Mixed hyperlipidemia ([facility]) Monoclonal gammopathy 01/14/2024 Morbid obesity with BMI of 40.0-44.9, adult ([facility]) Morbid obesity with BMI of 45.0-49.9, adult ([facility]) 01/14/2024 Multiple falls 01/14/2024 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) 01/14/2024 OM (onychomycosis) On home oxygen therapy 01/14/2024 TANYA (obstructive sleep apnea) Osteoarthritis of back Other chronic pain 01/14/2024 Peripheral edema 01/14/2024 Pruritic erythematous rash 01/14/2024 Rhabdomyolysis 01/14/2024 Stage 3 chronic kidney disease (HCC) ([facility]) 01/14/2024 Symptomatic varicose veins of both lower extremities 01/14/2024 Thyroid disease ([facility]) 01/14/2024 Type 2 diabetes mellitus without complications ([facility]) 01/14/2024 Ulcer of left lower leg ([facility]) 01/14/2024 UTI (urinary tract infection) 01/14/2024 Venous reflux 01/14/2024 Venous stasis ulcer limited to breakdown of skin without varicose veins ([facility]) 01/14/2024 Vitamin D deficiency, unspecified Past Surgical [...] hyperglycemia, with long-term current use of insulin ([facility]) - POCT glucose manually resulted - POCT [...] sent all Vitamin D deficiency Primary hypertension ([facility]) Hyperlipemia, mixed ([facility]) Insulin long-term use ([facility]) Encounter for dietary consultation Diet and exercise reviewed with the patient Stage 3b chronic kidney disease (HCC) ([facility]) Class 3 severe obesity due to excess calories with serious comorbidity and body mass index (BMI) of45.0 to 49.9 in adult ([facility]) Type 2 diabetes mellitus with hyperglycemia ([facility]) - dapagliflozin (Farxiga) 10 MG; Take 1 tablet (10 mg) by mouth Daily Follow up in about 3 months (around 08/22/2024). documented in this encounterSac-Osage [id number] History of Present illness Narrative* Mack Tsai, DPM - 04/15/2024 8:30 AM EST Patient: Kelsea Rojo Tam : 1960 PCP: [...] metabolic encephalopathy 01/14/2024 PETER (acute kidney injury) ([facility]) 01/14/2024 Anemia Anxiety Arthritis Bipolar 1 disorder ([facility]) 01/14/2024 Bipolar disorder with depression ([facility]) 01/14/2024 Breast cancer screening by mammogram 01/14/2024 Chronic depression ([facility]) 01/14/2024 Chronic fatigue 01/14/2024 Chronic hypercapnic respiratory failure ([facility]) 01/14/2024 Chronic kidney disease, stage 3 unspecified ([facility]) ([facility]) COPD (chronic obstructive pulmonary disease) ([facility]) Debility 01/14/2024 Degenerative joint disease of cervical and lumbar spine 01/14/2024 Dehydration 01/14/2024 Diabetes ([facility]) 01/14/2024 Diabetic neuropathy ([facility]) 07/15/2023 Diarrhea 01/14/2024 Difficulty walking Disorder of sacroiliac joint 01/14/2024 DM type 2 (diabetes mellitus, type 2) ([facility]) Elevated troponin 01/14/2024 Epigastric pain 01/14/2024 Gait instability 01/14/2024 GERD (gastroesophageal reflux disease) Hallucinations, visual 01/14/2024 Hemosiderin pigmentation of skin 01/14/2024 Hypertension ([facility]) Hypomagnesemia 01/14/2024 Hypothyroidism ([facility]) 01/14/2024 Iron deficiency anemia 01/14/2024 Irritable bowel disease 01/14/2024 Kidney disease 01/14/2024 long term care phlebotomist (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 ([facility]) 01/14/2024 Lumbar degenerative disc disease 01/14/2024 Lumbar spondylolysis Lumbosacral spondylosis without myelopathy 01/14/2024 Major depressive disorder with psychotic features ([facility]) 01/14/2024 Mixed hyperlipidemia ([facility]) Monoclonal gammopathy 01/14/2024 Morbid obesity with BMI of 40.0-44.9, adult (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) 01/14/2024 OM (onychomycosis) On home oxygen therapy 01/14/2024 TANYA (obstructive sleep apnea) Osteoarthritis of back Other chronic pain 01/14/2024 Peripheral edema 01/14/2024 Pruritic erythematous rash 01/14/2024 Rhabdomyolysis 01/14/2024 Stage 3 chronic kidney disease (HCC) ([facility]) 01/14/2024 Symptomatic varicose veins of both lower extremities 01/14/2024 Thyroid disease ([facility]) 01/14/2024 Type 2 diabetes mellitus without complications ([facility]) 01/14/2024 Ulcer of left lower leg ([facility]) 01/14/2024 UTI (urinary tract infection) 01/14/2024 Venous reflux 01/14/2024 Venous stasis ulcer limited to breakdown of skin without varicose veins ([facility]) 01/14/2024 Vitamin D deficiency, unspecified Medications: Current [...] (FreeStyle Alfredo 2 Sensor) [facility], USE DIRECTED EVERY 14 DAYS, Disp: , [...] split.., Disp: 60 tablet, Rfl: 11 HYDROcodone-acetaminophen ([place]) 5-325 MG tablet, TAKE 1 TABLET BY [...] and negative PT pedal pulses NEURO: 5.07 [place] Rosi monofilament test diminished to digits and forefoot bilaterally 125Hz tuning fork diminished to 1st MPJ bilaterally ORTHO: Positive pain on palpation to nails 1 through 10 Flexion deformity 2 through 5 digits right foot ASSESSMENT 1. Diabetes mellitus due to underlying condition with diabetic polyneuropathy, with long-term current use of insulin ([facility]) 2. Pain due to onychomycosis of toenails [...] or drainage to feet. Patient to consider [id number] treatments for medication or use of urea cream and prescription today was offered for Lac-Hydrin cream. Mack Tsai DPM documented in this encounterSac-Osage [id number] Evaluation note* Diagnosis Onset Date Resolution Status Admit Date Hypothyroidism acuteOctober 2023 8:19amTinea corporisacuteOctober 2023 8:19amType 2 diabetes mellitus without complicationsacuteOctober 2023 8:19amEncounter for initial annual wellness visit in Medicare patientnoneactiveOctober 2023 8:19amCKD (chronic kidney disease) stage 3, GFR 30-59 ml/minchronicNovember 2023 9:57amCOPD (chronic obstructive pulmonary disease)chronicNov2023 9:57amDegenerative joint disease of cervical and lumbar spinechronic February 24, 2024 9:57am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)chronicNov2023 9:57amIron deficiency anemiaresolvedNov2023 9:57amBipolar disorder with depressioninactive February 24, 2024 9:57amDiabetesinactiveNov2023 9:57amMorbid obesityinactiveFebruary 24, 2024 9:57am [facility] Work Phone: 1(732) 265-234710-29-2024 Evaluation note* Diagnosis Onset Date Resolution Status Admit Date Hypothyroidism acuteOctober 2023 8:19amTinea corporisacuteOctober 2023 8:19amType 2 diabetes mellitus without complicationsacuteOctober 2023 8:19amEncounter for initial annual wellness visit in Medicare patientnoneactive[facility] 20[facility] 8:19amCKD (chronic kidney disease) stage 3, GFR 30-59 ml/minchronicMarch 02, 2024 1:04pmCOPD (chronic obstructive pulmonary disease)chronicMarch 02, 2024 1:04pmDegenerative joint disease of cervical and lumbar spinechronic March 02, 2024 1: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)chronicNov2023 1:04pmIron deficiency anemiaresolvedNov2023 1:04pmBipolar disorder with depressioninactive March 02, 2024 1:04pmDiabetesinactiveNov2023 1:04pmMorbid obesityinactiveAtrium Health2023 1:04pm [facility] Work Phone: [phone]) 641-725810-29-2024 Evaluation note* Diagnosis Onset Date Resolution Status Admit Date Hypothyroidism acuteOctober 2023 8:19amTinea corporisacuteOctober 2023 8:19amType 2 diabetes mellitus without complicationsacuteOctober 2023 8:19amEncounter for initial annual wellness visit in Medicare patientnoneactiveOctober 2023 8:19amHistory of iron deficiency anemiaacuteAtrium Health2023 1:03pm Morbid obesity with BMI of 45.0-49.9, adultacuteNov2023 1:03pm Pruritic erythematous rashacuteNov2023 1:03pmBipolar 1 disorder chronicAtrium Health2023 1:03pmCKD (chronic kidney disease) stage 3, GFR 30-59 ml/minchronicAtrium Health2023 1:03pmCOPD (chronic obstructive pulmonary disease)[facility]2023 1:03pmDegenerative joint disease of cervical and lumbar spinechronicAtrium Health2023 1:03pmDiabetic neuropathy associated with diabetes mellitus due to underlyingchronicNov2023 1:03pm HypertensionchronicAtrium Health2023 1:03pm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)[facility]2023 1:03pmVenous stasis dermatitis of both lower extremitiesresolvedNov2023 1:03pmCKD (chronic kidney disease) stage 3, GFR 30-59 ml/minchronicAtrium Health2023 1:04pmCOPD (chronic obstructive pulmonary disease)[facility]2023 1:04pmDegenerative joint disease of cervical and lumbar spinechronic March 02, 2024 1: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)chronicMarch 02, 2024 1:04pmIron deficiency anemiaresolvedMarch 02, 2024 1:04pmBipolar disorder with depressioninactive March 02, 2024 1:04pmDiabetesinactiveMarch 02, 2024 1:04pmMorbid obesityinactiveMarch 02, 2024 1:04pmTrochanteric bursitis of left hipacute March 07, 2024 11:07amVenous stasis dermatitis of both lower extremities resolvedMarch 07, 2024 11:07am [facility] Work Phone: [phone] 352-392510-22-2024 History of Present illness Narrative* Mack Tsai DPM - 02/02/2024 8:30 AM EDT Patient: Kelsea [...] metabolic encephalopathy 01/14/2024 PETER (acute kidney injury) ([facility]) 01/14/2024 Anemia Anxiety Arthritis Bipolar 1 disorder ([facility]/HCC) 01/14/2024 Bipolar disorder with depression ([facility]) 01/14/2024 Breast cancer screening by mammogram 01/14/2024 Chronic depression ([facility]) 01/14/2024 Chronic fatigue 01/14/2024 Chronic hypercapnic respiratory failure ([facility]) 01/14/2024 Chronic kidney disease, stage 3 unspecified (HCC) ([facility]) COPD (chronic obstructive pulmonary disease) ([facility]) Debility 01/14/2024 Degenerative joint disease of cervical and lumbar spine 01/14/2024 Dehydration 01/14/2024 Diabetes ([facility]) 01/14/2024 Diabetic neuropathy ([facility]) 07/15/2023 Diarrhea 01/14/2024 Difficulty walking Disorder of sacroiliac joint 01/14/2024 DM type 2 (diabetes mellitus, type 2) ([facility]) Elevated troponin 01/14/2024 Epigastric pain 01/14/2024 Gait instability 01/14/2024 GERD (gastroesophageal reflux disease) Hallucinations, visual 01/14/2024 Hemosiderin pigmentation of skin 01/14/2024 Hypertension ([facility]) Hypomagnesemia 01/14/2024 Hypothyroidism ([facility]) 01/14/2024 Iron deficiency anemia 01/14/2024 Irritable bowel disease 01/14/2024 Kidney disease 01/14/2024 long term care phlebotomist (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 ([facility]) 01/14/2024 Lumbar degenerative disc disease 01/14/2024 Lumbar spondylolysis Lumbosacral spondylosis without myelopathy 01/14/2024 Major depressive disorder with psychotic features (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) 01/14/2024 OM (onychomycosis) On home oxygen therapy 01/14/2024 TANYA (obstructive sleep apnea) Osteoarthritis of back Other chronic pain 01/14/2024 Peripheral edema 01/14/2024 Pruritic erythematous rash 01/14/2024 Rhabdomyolysis 01/14/2024 Stage 3 chronic kidney disease (HCC) ([facility]) 01/14/2024 Symptomatic varicose veins of both lower extremities 01/14/2024 Thyroid disease ([facility]) 01/14/2024 Type 2 diabetes mellitus without complications ([facility]) 01/14/2024 Ulcer of left lower leg ([facility]) 01/14/2024 UTI (urinary tract infection) 01/14/2024 Venous reflux 01/14/2024 Venous stasis ulcer limited to breakdown of skin without varicose veins ([facility]) 01/14/2024 Vitamin D deficiency, unspecified [...] Needle Micro U/F 32G X 6 MM [facility], USE DIRECTED 4 TIMES A DAY, Disp: [...] Rfl: 5 Cholecalciferol (Vitamin D) 50 MCG (1999) capsule, Take 1 capsule by mouth 1 [...] (FreeStyle Alfredo 2 Sensor) [facility], USE DIRECTED EVERY 14 DAYS, Disp: , [...] split.., Disp: 60 tablet, Rfl: 11 HYDROcodone-acetaminophen ([place]) 5-325 MG tablet, TAKE 1 TABLET BY [...] and negative PT pedal pulses NEURO: 5.07 [place] Rosi monofilament test diminished to digits and forefoot bilaterally 125Hz tuning fork diminished to 1st MPJ bilaterally ORTHO: Positive pain on palpation to nails 1 through 10 Flexion deformity 2 through 5 digits right foot ASSESSMENT 1. Diabetes mellitus due to underlying condition with diabetic polyneuropathy, with long-term current use of insulin ([facility]) 2. Pain due to onychomycosis of toenails [...] gear. Mack Tsai DPM documented in this encounterSac-Osage [id number] History of Present illness Narrative* Jeannie Aguilar [...] New patient sent from Pain Management in [place], Dr. Brenden Groves, for uncontrolled diabetes. A1c [...] Do not crush, chew, or split. HYDROcodone-acetaminophen ([place]) 5-325 MG tablet TAKE 1 TABLET BY [...] metabolic encephalopathy 01/14/2024 PETER (acute kidney injury) ([facility]) 01/14/2024 Anemia Anxiety Arthritis Bipolar 1 disorder ([facility]) 01/14/2024 Bipolar disorder with depression ([facility]) 01/14/2024 Breast cancer screening by mammogram 01/14/2024 Chronic depression ([facility]) 01/14/2024 Chronic fatigue 01/14/2024 Chronic hypercapnic respiratory failure ([facility]) 01/14/2024 Chronic kidney disease, stage 3 unspecified (HCC) ([facility]) COPD (chronic obstructive pulmonary disease) ([facility]) Debility 01/14/2024 Degenerative joint disease of cervical and lumbar spine 01/14/2024 Dehydration 01/14/2024 Diabetes ([facility]) 01/14/2024 Diabetic neuropathy ([facility]) 07/15/2023 Diarrhea 01/14/2024 Difficulty walking Disorder of sacroiliac joint 01/14/2024 DM type 2 (diabetes mellitus, type 2) ([facility]) Elevated troponin 01/14/2024 Epigastric pain 01/14/2024 Gait instability 01/14/2024 GERD (gastroesophageal reflux disease) Hallucinations, visual 01/14/2024 Hemosiderin pigmentation of skin 01/14/2024 Hypertension ([facility]) Hypomagnesemia 01/14/2024 Hypothyroidism (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) 01/14/2024 Lumbar degenerative disc disease 01/14/2024 Lumbar spondylolysis Lumbosacral spondylosis without myelopathy 01/14/2024 Major depressive disorder with psychotic features ([facility]) 01/14/2024 Mixed hyperlipidemia ([facility]) Monoclonal gammopathy 01/14/2024 Morbid obesity with BMI of 40.0-44.9, adult ([facility]) Morbid obesity with BMI of 45.0-49.9, adult (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) 01/14/2024 OM (onychomycosis) On home oxygen therapy 01/14/2024 TANYA (obstructive sleep apnea) Osteoarthritis of back Other chronic pain 01/14/2024 Peripheral edema 01/14/2024 Pruritic erythematous rash 01/14/2024 Rhabdomyolysis 01/14/2024 Stage 3 chronic kidney disease (HCC) ([facility]) 01/14/2024 Symptomatic varicose veins of both lower extremities 01/14/2024 Thyroid disease ([facility]) 01/14/2024 Type 2 diabetes mellitus without complications ([facility]) 01/14/2024 Ulcer of left lower leg ([facility]) 01/14/2024 UTI (urinary tract infection) 01/14/2024 Venous reflux 01/14/2024 Venous stasis ulcer limited to breakdown of skin without varicose veins ([facility]) 01/14/2024 Vitamin D deficiency, unspecified Past Surgical [...] hyperglycemia, with long-term current use of insulin ([facility]) - POCT glucose manually resulted - POCT glycosylated hemoglobin (Hb A1C) docked device We will continue with Farxiga 10 mg, Lantus 50 at bedtime, short-acting lipscomb lyumjev 40 units everymeal Vitamin D deficiency Primary hypertension ([facility]) Hyperlipemia, mixed ([facility]) Insulin long-term use ([facility]) Encounter for dietary consultation Diet and exercise reviewed with the patient Stage 3b chronic kidney disease (HCC) ([facility]) Class 3 severe obesity due to excess calories with serious comorbidity and body mass index (BMI) of45.0 to 49.9 in adult ([facility]) Follow up in about 4 months (around 05/22/2024). documented in this encounterSac-Osage [id number] History of Present illness Narrative* Svetlana Garcia, [...] , Rfl: Cholecalciferol (Vitamin D) 50 MCG (2000 UT) [...] (FreeStyle Alfredo 2 Sensor) [facility], USE DIRECTED EVERY 14 DAYS, Disp: , [...] TABS AT BEDTIME, Disp: , Rfl: HYDROcodone-acetaminophen ([place]) 5-325 MG tablet, TAKE 1 TABLET BY [...] metabolic encephalopathy 01/14/2024 PETER (acute kidney injury) ([facility]) 01/14/2024 Anemia Anxiety Arthritis Bipolar 1 disorder ([facility]) 01/14/2024 Bipolar disorder with depression ([facility]) 01/14/2024 Breast cancer screening by mammogram 01/14/2024 Chronic depression ([facility]) 01/14/2024 Chronic fatigue 01/14/2024 Chronic hypercapnic respiratory failure ([facility]) 01/14/2024 Chronic kidney disease, stage 3 unspecified ([facility]) ([facility]) COPD (chronic obstructive pulmonary disease) ([facility]) Debility 01/14/2024 Degenerative joint disease of cervical and lumbar spine 01/14/2024 Dehydration 01/14/2024 Diabetes ([facility]) 01/14/2024 Diabetic neuropathy ([facility]) 07/15/2023 Diarrhea 01/14/2024 Difficulty walking Disorder of sacroiliac joint 01/14/2024 DM type 2 (diabetes mellitus, type 2) ([facility]) Elevated troponin 01/14/2024 Epigastric pain 01/14/2024 Gait instability 01/14/2024 GERD (gastroesophageal reflux disease) Hallucinations, visual 01/14/2024 Hemosiderin pigmentation of skin 01/14/2024 Hypertension (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) 01/14/2024 Lumbar degenerative disc disease 01/14/2024 Lumbar spondylolysis Lumbosacral spondylosis without myelopathy 01/14/2024 Major depressive disorder with psychotic features ([facility]) 01/14/2024 Mixed hyperlipidemia ([facility]) Monoclonal gammopathy 01/14/2024 Morbid obesity with BMI of 40.0-44.9, adult ([facility]) Morbid obesity with BMI of 45.0-49.9, adult (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) 01/14/2024 OM (onychomycosis) On home oxygen therapy 01/14/2024 TANYA (obstructive sleep apnea) Osteoarthritis of back Other chronic pain 01/14/2024 Peripheral edema 01/14/2024 Pruritic erythematous rash 01/14/2024 Rhabdomyolysis 01/14/2024 Stage 3 chronic kidney disease (HCC) ([facility]) 01/14/2024 Symptomatic varicose veins of both lower extremities 01/14/2024 Thyroid disease ([facility]) 01/14/2024 Type 2 diabetes mellitus without complications ([facility]) 01/14/2024 Ulcer of left lower leg ([facility]) 01/14/2024 UTI (urinary tract infection) 01/14/2024 Venous reflux 01/14/2024 Venous stasis ulcer limited to breakdown of skin without varicose veins ([facility]) 01/14/2024 Vitamin D deficiency, unspecified Social History: [...] Chronic obstructive pulmonary disease, unspecified COPD type ([facility]) - albuterol HFA 90 mcg/act inhaler; Inhale [...] COPD. Svetlana Garcia DO documented in this encounterSac-Osage [id number] Progress note Author Erica Diehl [facility] April 28, 2023 9:15amNote Date/TimeJanuary 2023 9:09[place] [address] Wound Center Provider Note Signed Patient: Kelsea Turcios MR#: [id number] : 1960 Acct:[id number] Age/Sex: 62 / F Copies to: DO Erica Miranda APRN~ HPI Date of Visit Date of Visit: Date of Service: 04/28/2023 Time of Service: 09:06 Narrative HPI: 04/28/23 Kelsea is a 62-year-old female [facility] [...] I would like her to see a tin plater, especially if the venous studies do not [...] for the past year Mode of Arrival/ Long Chain Beamer: Personal vehicle Lives with:: Spouse Appetite Description: Within Normal Limits Smoking Status: Never smoker [facility] Medical History (Updated 04/28/23 @ 09:09 [...] Confirmed 04/28/23] dapagliflozin propanediol 5 mg tablet (Ethanxiga) 5 mg PO QAM 12/05/22 [History Confirmed [...] Skin Breakdown Bed Appearance: Beefy Red and [place] Percent of Wound Bed Granulated/Red: 100 Percent of Devitalized: 0 Length (cm): 0.6 Width (cm): 0.5 Depth (cm): 0.1 CM Sq: 0.300 Surrounding Tissue Appearance: Hyperpigmented Surrounding Tissue Temp: Warm Drainage Amount: Scant Drainage Odor: No Odor Right Lower Leg: Type: Venous Stasis Ulcer Thickness: Skin Breakdown Bed Appearance: Beefy Red and [place] Percent of Wound Bed Granulated/Red: 100 Percent [...] Signed By: <Electronically signed by LUCI Diehl> 04/28/23914 [facility] Work Phone: 1(616) 453-530712-07-2023 Evaluation note* Encounter Date Diagnosis Assessment Notes Treatment Notes Treatment Clinical Notes Mar, Diarrhea (ICD-10 - R19.7) [facility] Other 11-13-2023 Evaluation note* Encounter Date Diagnosis Assessment Notes Treatment Notes Treatment Clinical Notes Feb, Controlled type 2 di abetes mellitus with complication, without long-term current use of insulin (ICD-10 - E11.8) [facility] Other 10-27-2023 Evaluation note* Encounter Date Diagnosis [...] evaluation. DIscussed possible need for vascular f/u [facility] Other 10-24-2023 Evaluation note* Encounter Date Diagnosis Assessment Notes Treatment Notes Treatment Clinical Notes Jan, Controlled type 2 di abetes mellitus with complication, without long-term current use of insulin (ICD-10 - E11.8) [facility] Other 10-19-2023 Progress note Author Roxane Bills [facility] January 29, 2023 9:44amNote Date/TimeOctober 2022 9:02[facility] at [address] [address] Hem/Onc Follow Up Note - OP Signed Patient: Kelsea Turcios MR#: [id number] : 1960 Acct:[id number] Age/Sex: 62 / F Type: REG RCR [...] a creatinine of 1.64 correlating to EGFR, zhc-Xnvpgqv-Vjvbctys 32. This has not significantly changed over the last year but is lower than prior labs from 8776-2833. Most recent calcium within normal limits and [...] Negative for environmental allergies and food allergies. [facility] - History Attestation statement: The following [...] H, IgM 107, Serum Immunofixation A, Free [place] LC, Quant 237.9 H, Free Lambda LC, Quant 38.0 H, Free [place]/Lambda Ratio 6.26 H 01/22/23 13:24: PHA Creatinine Clear 44.97, Sodium 141, Potassium 4.2, Chloride 100, Carbon Ukyubbz24.1 H, Anion Gap 13.1, BUN 13, Creatinine 1.37 H, Est GFR (CKD-EPI) 43.118, Glucose 199 H, Calcium8.6, Iron 74, TIBC 311, Iron Yzxfonqfux73.8, Transferrin 222, Ferritin 192.2, Total Bilirubin 0.4, [...] % (Auto) 64.2, Lymph % (Auto) 25.5, [place] % (Auto) 5.6, Eos % (Auto) 4.2, Baso % (Auto) 0.5, Nucleat RBC Rel Count 0.0, Neut # (Auto) 8.0 H, Lymph # (Auto) 3.2, [place] # (Auto) 0.7, Eos # (Auto) 0.5 [...] a creatinine of 1.64 correlating to EGFR, mpf-Tifzloe-Jveablbk 32. This has not significantly changed over the last year but is lower than prior labs from 0062-2208. Most recent calcium within normal limits and [...] for coordination of care (as documented) and kvfi-zx-sepk counseling of patient and/or family. Dictated By: Roxane Bills MD DD/ 0900 Signed By: <Electronically signed by MD Roxane Bills> 01/29/23 0944 [facility] Work Phone: 1(991) 453-841510-11-2023 Evaluation note* Encounter Date Diagnosis Assessment Notes Treatment Notes Treatment Clinical Notes Jan, Left hip pain (ICD-10 - M25.552) [facility] Other 10-02-2023 Evaluation note* Encounter Date Diagnosis Assessment Notes Treatment Notes Treatment Clinical Notes Jan, Other chronic pain (ICD-10 - G89 .29) Jan,Lumbago with sciatica, left side (ICD-10 - M54.42) [facility] Other 09-05-2023 Evaluation note* Encounter Date Diagnosis Assessment Notes Treatment Notes Treatment Clinical Notes Dec, Acquired lymphedema of lower ext remity (ICD-10 - I89.0) [facility] Other 07-17-2023 Evaluation note* Encounter Date Diagnosis Assessment Notes Treatment Notes Treatment Clinical Notes Oct, Type 2 diabetes ahsan itus with diabetic chronic kidney disease (ICD- 10 - E11.22) [facility] Other 07-03-2023 Evaluation note* Encounter Date Diagnosis Assessment Notes Treatment Notes Treatment Clinical Notes Oct, Other chronic pain (ICD-10 - G89 .29) [facility] Other 06-28-2023 Evaluation note* Encounter Date Diagnosis Assessment Notes Treatment Notes Treatment Clinical Notes Sep, Gait instability (ICD-10 - R26.8 1) [facility] Other 06-06-2023 Evaluation note* Encounter Date Diagnosis [...] obstructive pulmonary disease, unspecified (ICD-10 - J44.9) [facility] Other 05-30-2023 Evaluation note* Encounter Date Diagnosis Assessment Notes Treatment Notes Treatment Clinical Notes August, Lumbosacral spondylosis without myelopathy (ICD-10 - M47.817) [facility] Other 05-02-2023 Evaluation note* Encounter Date Diagnosis Assessment Notes Treatment Notes Treatment Clinical Notes August, Chronic obstructive pulmonary disease, unspecified (ICD-10 - J44.9) [facility] Other 04-21-2023 Evaluation note* Encounter Date Diagnosis Assessment Notes Treatment Notes Treatment Clinical Notes Jul, Controlled type 2 di abetes mellitus with complication, without long-term current use of insulin (ICD-10 - E11.8) [facility] Other 04-20-2023 Progress note Author Roxane Bills [facility] July 31, 2022 1:09pmNote Date/TimeApril 2022 3:08pm[facility] [place] [address] Hem/Onc Follow Up Note - OP Signed Patient: Kelsea Turcios MR#: [id number] : 1960 Acct:[id number] Age/Sex: 61 / F Type: REG RCR [...] a creatinine of 1.64 correlating to EGFR, fvb-Jntdeuq-Svphvqth 32. This has not significantly changed over the last year but is lower than prior labs from 4046-8770. Most recent calcium within normal limits and [...] Negative for environmental allergies and food allergies. [facility] - History Attestation statement: The following [...] - Last 7 Days 07/22/22 09:12: Free [place] LC, Quant 120.4 H, Free Lambda LC, [...] a creatinine of 1.64 correlating to EGFR, ggq-Omadrlg-Tzloyalu 32. This has not significantly changed over the last year butis lower than prior labs from 2615-1316. Most recent calcium within normal limits and [...] for coordination of care (as documented) and ntkk-db-bsvl counseling of patient and/or family. Dictated By: Roxane Bills MD DD/ 1506 Signed By: <Electronically signed by MD Roxane Bills> 07/31/22 [address] [facility] Work Phone: [phone] 207-813004-07-2023 Evaluation note* Encounter Date Diagnosis Assessment Notes Treatment Notes Treatment Clinical Notes Jul, Essential hypertension (ICD-10 - I10) [facility] Other 04-06-2023 Evaluation note* Encounter Date Diagnosis Assessment Notes Treatment Notes Treatment Clinical Notes Jul, Type 2 diabetes ahsan itus with diabetic chronic kidney disease (ICD- 10 - E11.22) [facility] Other 04-03-2023 Evaluation note* Encounter Date Diagnosis Assessment Notes Treatment Notes Treatment Clinical Notes Jul, Essential hypertension (ICD-10 - I10) [facility] Other 03-27-2023 Evaluation note* Encounter Date Diagnosis [...] discussion, agrees with plan, denies any questions. [facility] Other 03-23-2023 NoteCONSULTATION CONSULTATION DATE: 07/03/2022 TO: Dr. Tyson [facility] CHIEF COMPLAINT: Left lower back pain. [...] one pill up to b.i.d. as tolerated.[facility] [id number] Evaluation note* Encounter Date Diagnosis Assessment Notes Treatment Notes Treatment Clinical Notes Jun, Type 2 diabetes ahsan itus with diabetic chronic kidney disease (ICD- 10 - E11.22) Jun,cquired lymphedema of lower extremity (ICD-10 - I89.0) Jun,ough (ICD-10 - R05.9) [facility] Other 02-02-2023 Evaluation note* Encounter Date Diagnosis Assessment Notes Treatment Notes Treatment Clinical Notes May, Conjunctivitis (ICD-10 - H10.9) [facility] Other 01-25-2023 Evaluation note* Encounter Date Diagnosis [...] on current dose of antihypertensives, will continue [facility] Other 01-24-2023 NoteCONSULTATION CONSULTATION DATE: 05/06/2022 CHIEF COMPLAINT: Low back pain, bilateral lower extremity pain. HISTORY OF PRESENT ILLNESS: This is a 61-year-old female who is referred to us by Dr. Peri Tyson from [facility]. The patient has had [...] kidney disease. The patient takes half a Hesperia tablet on a p.r.n. basis, duloxetine 60 [...] patient responds, we can increase that to Hesperia 5/325 on a t.i.d. basis. I would [...] like to proceed. CC: Laureen Maddox D.O.[facility] [id number] Progress note Author Raymundo SharmaSum[facility] Health [facility] April 23, 2022 12:40pmNote Date/TimeJanuary 2022 11:14[facility] [place] [address] Hem/Onc Follow Up Note - OP Signed Patient: Kelsea Turcios MR#: [id number] : 1960 Acct:[id number] Age/Sex: 61 / F Type: REG RCR Copies to: MD Brenden Manzo, DO Giovanni Moreno D.O.~ Subjective Date/Time of Service: Date of [...] a creatinine of 1.64 correlating to EGFR, hpn-Wsdhxpo-Apgnvnhw 32. This has not significantly changed over the last year but is lower than prior labs from 6872-8440. Most recent calcium within normal limits and [...] 3.4, Globulin (PEP) 3.9, Albumin/Globulin (PEP) 0.9, Ntlkg-7-Tuuxlupsk 0.3, Sfkmi-0-Didecumfz 0.9, Beta Globulins 1.4 H, Gamma Globulins 1.3, M-Damien 0.4 H, PEP Note , IgG 1443, IgA 625 H, IgM 98, Free [place] LC, Quant 162.6 H, Free Lambda LC, Quant 44.5 H, Free [place]/Lambda Ratio 3.65 H 04/17/22 10:05: PHA Creatinine Clear 51.63, Sodium 138, Potassium 3.5, Chloride 98, Carbon Dioxide 30.7 H, Anion Gap 12.8, BUN 17, Creatinine 1.26 H, Est GFR ( Amer) 52, Est GFR (Non-Af Amer) 43, Glucose 269 H, Calcium 9.1, Iron 53, TIBC 346, Iron Saturation 15.3 L, Transferrin 247, Imttcxwx12.6, Total Bilirubin 0.3, AST 23, ALT 22, Alkaline Phosphatase 121 H, Total Protein 7.0, Albumin 3.2, Globulin 3.8, Albumin/Globulin Ratio 0.8 04/17/22 10:05: Corrected WBC 10.8, Uncorrected WBC Count 10.8, RBC 4.02, Hgb 11.2 L, Hct 35.4, MCV88.1, MCH 27.9, MCHC 31.6 L, RDW 15.7 H, Plt Count 273, MPV 7.6, Neut % (Auto) 61.2, Lymph % (Auto)24.5, [place] % (Auto) 7.9, Eos % (Auto) 5.9, Baso % (Auto) 0.5, Nucleat RBC Rel Count 0.2, Neut # (Auto) 6.6, Lymph # (Auto) 2.6, [place] # (Auto) 0.8, Eos # (Auto) 0.6 [...] a creatinine of 1.64 correlating to EGFR, oon-Zqtrjkz-Xwwjbnzj 32. This has not significantly changed over the last year but is lower than prior labs from 6969-0794. Most recent calcium within normal limits and [...] for coordination of care (as documented) and jtuw-hv-bwii counseling of patient and/or family. Dictated By: Raymundo Galicia APRN DD/ 1114 Signed By: <Electronically signed by LUCI Galicia> 04/23/22 [address] [facility] Work Phone: [phone] 410-275801-10-2023 Evaluation note* Encounter Date Diagnosis Assessment Notes Treatment Notes Treatment Clinical Notes Apr, Controlled substance agreement s igned (ICD-10 - Z79.899) [facility] Other 01-09-2023 Evaluation note* Encounter Date Diagnosis Assessment Notes Treatment Notes Treatment Clinical Notes Apr, Unspecified vitamin D deficiency (ICD9-CM - 268.9) Apr,Type 2 diabetes mellitus with diabetic chronic kidney disease (ICD- 10 - E11.22) [facility] Other 11-28-2022 Evaluation note* Encounter Date Diagnosis Assessment Notes Treatment Notes Treatment Clinical Notes Feb, Type 2 diabetes ahsan itus with diabetic chronic kidney disease (ICD- 10 - E11.22) [facility] Other 11-08-2022 Evaluation note* Encounter Date Diagnosis Assessment Notes Treatment Notes Treatment Clinical Notes Feb, Controlled substance agreement s igned (ICD-10 - Z79.899) Feb,bdominal pain (ICD-10 - R10.9) [facility] Other 11-03-2022 Evaluation note* Encounter Date Diagnosis Assessment Notes Treatment Notes Treatment Clinical Notes Feb, Acquired lymphedema of lower ext remity (ICD-10 - I89.0) [facility] Other 11-01-2022 Evaluation note* Encounter Date Diagnosis Assessment Notes Treatment Notes Treatment Clinical Notes Feb, Type 2 diabetes mellitus without complications (ICD-10 - E11.9) [facility] Other 10-31-2022 Evaluation note* Encounter Date Diagnosis Assessment Notes Treatment Notes Treatment Clinical Notes Jan, UTI (urinary tract infection) (I CD-10 - N39.0) [facility] Other 10-24-2022 Evaluation note* Encounter Date Diagnosis [...] well controlled on current medications, will continue [facility] Other 10-12-2022 Evaluation note* Encounter Date Diagnosis Assessment Notes Treatment Notes Treatment Clinical Notes Jan, Controlled substance agreement s igned (ICD-10 - Z79.899) [facility] Other 09-12-2022 Evaluation note* Encounter Date Diagnosis Assessment Notes Treatment Notes Treatment Clinical Notes Dec, Other chronic pain (ICD-10 - G89 .29) Was working on previous PCP to wean down on dosage of Hesperia 5-325. She currently is not taking thisevery day. She has upcoming f/u for a back injection and was recommended to consider pain management referral for RFA. Can continue use of Hesperia sparingly as needed for severe pain. I [...] ?diagnosis of narcolepsy in setting of TANYA. [facility] Other 08-19-2022 Evaluation note* Encounter Date Diagnosis Assessment Notes Treatment Notes Treatment Clinical Notes Nov, Essential hypertension (ICD-10 - I10) [facility] Other 07-14-2022 Progress note Author Roxane Bills [facility] October 24, 2021 2:26pmNote Date/TimeJuly 2021 1:[facility]pm[facility] [place] [address] Hem/Onc Follow Up Note - OP Signed Patient: Kelsea Turcios MR#: [id number] : 1960 Acct:[id number] Age/Sex: 61 / F Type: REG RCR [...] a creatinine of 1.64 correlating to EGFR, vae-Irpgseg-Obbsrcok 32. This has not significantly changed over the last year but is lower than prior labs from 1387-3131. Most recent calcium within normal limits and [...] a creatinine of 1.64 correlating to EGFR, ltb-Rfxsoqg-Ywglpjoo 32. This has not significantly changed over the last year but is lower than prior labs from 5450-2760. Most recent calcium within normal limits and [...] for coordination of care (as documented) and qtta-iu-pvgc counseling of patient and/or family. Dictated By: Roxane Bills MD DD/ 4557 Signed By: <Electronically signed by MD Roxane Bills> 10/24/21 [address] [facility] Work Phone: 1(585) 353-329107-11-2022 Evaluation note* Encounter Date Diagnosis Assessment Notes [...] repeat the chemistry panel at this time. [facility] Other 06-23-2022 Evaluation note* Encounter Date Diagnosis Assessment Notes Treatment Notes Treatment Clinical Notes Sep, Anemia NOS (ICD9-CM - 285.9) [facility] Other 06-09-2022 Evaluation note* Encounter Date Diagnosis Assessment Notes Treatment Notes Treatment Clinical Notes Sep, Type 2 diabetes ahsan itus with diabetic chronic kidney disease (ICD- 10 - E11.22) [facility] Other 06-01-2022 Progress note Author Roxane Bills [facility] September 11, 2021 2:34pmNote Date/TimeJun2021 10:47[facility] [place] [id number] Hem/Onc Follow Up Note - OP Signed Patient: Kelsea Turcios MR#: [id number] : 1960 Acct:[id number] Age/Sex: 60 / F Type: REG RCR [...] a creatinine of 1.64 correlating to EGFR, eok-Ntbmdnh-Nbfzqinx 32. This has not significantly changed over the last year but is lower than prior labs from 0338-9495. Most recent calcium within normal limits and [...] a creatinine of 1.64 correlating to EGFR, jgw-Wvxocun-Qycdquwu 32. This has not significantly changed over the last year but is lower than prior labs from 8003-5223. Most recent calcium within normal limits and [...] for coordination of care (as documented) and wkgn-sd-vfca counseling of patient and/or family. Dictated By: Roxane Bills MD DD/ 1045 Signed By: <Electronically signed by MD Roxane Bills> 09/11/21 [address] [facility] Work Phone: [phone]) [phone] Evaluation note* Encounter Date Diagnosis Assessment Notes [...] surgery. She r eports prior injections at [facility] with Dr. Groves. She feels pain can [...] negative findings were considered in medical decision-making. [facility] Other 05-07-2022 Consult note Author Roxane Bills [facility] August 16, 2021 10:27pmNote Date/TimeMay 2021 10:19[facility] at [address] [address] Hem/Onc Consult Note - OP Signed Patient: Kelsea Turcios MR#: [id number] : 1960 Acct:[id number] Age/Sex: 60 / F Type: REG RCR [...] a creatinine of 1.64 correlating to EGFR, qjm-Fmandvn-Ixnshder 32. This has not significantly changed over the last year but is lower than prior labs from 7462-8545. Most recent calcium within normal limits and we do not have recent imaging other than her MRIswhich have not shown any bony lytic lesions. The patient does report diffuse pain. She has urinary tract infections intermittently but no other history of chronic infections. She has no personal history of malignancy, chemotherapy, or radiation therapy. [facility], [facility] - History Attestation statement: The following [...] SUGGEST PNEUMONIA. Impression dictated by: Manish Mccurdy Jr. D.OJane06/20/2021 2:41 PM Assessment and Plan (1) Neuropathy [...] a creatinine of 1.64 correlating to EGFR, lnw-Jrxecgm-Anlavpss 32. This has not significantly changed over the last year but is lower than prior labs from 5154-5944. Most recent calcium within normal limits and [...] for coordination of care (as documented) and kuvo-or-tizy counseling of patient and/or family. Dictated By: Roxane Bills MD DD/ 1012 Signed By: <Electronically signed by MD Roxane Bills> 08/16/21 0078 [facility] Work Phone: [phone] Evaluation note* Encounter Date Diagnosis Assessment Notes [...] the patient did have an MRI at [facility] about 1 year ago. This showed lipoma [...] Percocet multiple times a day from the [facility]. I have gradually weaned her dose down and I explained her that my plan is to continue to wean the dose down as I do not typically treat chronic pain with opiates. She has been cooperative with this. She may get opinion from her neurologist or when she establishes with pain management. Jul,ther chronic pain (ICD-10 - G89.29) [facility] Other 04-27-2022 Evaluation note* Encounter Date Diagnosis Assessment Notes Treatment Notes Treatment Clinical Notes Jul, Acquired lymphedema of lower ext remity (ICD-10 - I89.0) Jul,Type 2 diabetes mellitus with diabetic chronic kidney disease (ICD- 10 - E11.22) [facility] Other 04-11-2022 Evaluation note* Encounter Date Diagnosis [...] ahead and recheck it in 3 months. [facility] Other 03-15-2022 Evaluation note* Encounter Date Diagnosis Assessment Notes Treatment Notes Treatment Clinical Notes Jun, Acquired lymphedema of lower ext remity (ICD-10 - I89.0) [facility] Other 03-10-2022 Evaluation note* Encounter Date Diagnosis [...] loss, compression stockings, keeping legselevated, and activity. [facility] Other 02-23-2022 Evaluation note* Encounter Date Diagnosis Assessment Notes Treatment Notes Treatment Clinical Notes May, Type 2 diabetes ahsan itus with diabetic chronic kidney disease (ICD- 10 - E11.22) [facility] Other 02-10-2022 Evaluation note* Encounter Date Diagnosis Assessment Notes Treatment Notes Treatment Clinical Notes May, Acquired lymphedema of lower ext remity (ICD-10 - I89.0) [facility] Other 02-10-2022 Evaluation note* Encounter Date Diagnosis [...] will work-up further. Follow-up in 4 weeks. [facility] Other 02-02-2022 Evaluation note* Encounter Date Diagnosis Assessment Notes Treatment Notes Treatment Clinical Notes May, Unspecified vitamin D deficiency (ICD9-CM - 268.9) [facility] Other 01-19-2022 Evaluation note* Encounter Date Diagnosis [...] following her next appointment with vascular surgery. [facility] Other 12-21-2021 Evaluation note* Encounter Date Diagnosis [...] (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 (ICD-10 - Z79.4) [facility] Other 12-09-2021 Evaluation note* Encounter Date Diagnosis Assessment Notes Treatment Notes Treatment Clinical Notes Mar, GERD (gastroesophageal reflux di sease) (ICD-10 - K21.9) [facility] Other 11-22-2021 Evaluation note* Encounter Date Diagnosis [...] will undergo full functional venous duplex examination. [facility] Other 11-17-2021 Evaluation note* Encounter Date Diagnosis Assessment Notes Treatment Notes Treatment Clinical Notes Feb, Encounter for screen ing mammogram for malignant neoplasm of breast (ICD-10 - Z12.31) [facility] Other Evaluation noteNo InformationNort [employer] Other Evaluation note* Diagnosis Onset Date Resolution Status Monoclonal gammopathy acuteDegenerative joint disease of cervical and lumbar spineacuteIron deficiency anemiaacuteBipolar disorder with depressionchronicCKD (chronic kidney disease) stage 3, GFR 30-59 ml/minchronicCOPD (chronic obstructive pulmonary disease) chronicDiabeteschronicMorbid obesitychronic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)chronic [facility] Work Phone: Evaluation noteNo assessment information available [facility] Work Phone: Evaluation note* Diagnosis Onset Date Resolution Status 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 acuteIron deficiency anemiaacuteBipolar disorder with depressionchronicCKD (chronic kidney disease) stage 3, GFR 30-59 ml/minchronicCOPD (chronic obstructive pulmonary disease)chronicDiabeteschronicMorbid obesitychronic 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 [facility] Work Phone: Evaluation note* Diagnosis Onset Date Resolution Status 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 acuteBipolar disorder with depressionchronicCKD (chronic kidney disease) stage 3, GFR 30-59 ml/minchronicCOPD (chronic obstructive pulmonary disease)chronic DiabeteschronicIron deficiency anemiachronicMorbid obesitychronic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)[facility] Work Phone: Evaluation note* Diagnosis Onset [...] apnea)chronicVenous stasis dermatitis of both lower extremitiesresolved [facility] Work Phone: Evaluation note* Diagnosis Diabetes mellitus due to underlying condition with diabetic polyneuropathy, with long-term current use of insulin ([facility]) documented in this encounter [...] varicose veins of both lower extremitiesacuteVenous refluxacute [facility] Work Phone: Evaluation note* Diagnosis Onset Date Resolution Status Debility acuteInflammationacuteIrritable bowel diseaseacuteOn home oxygen therapyacute Peripheral edemaacuteUlcer of left lower legacuteUlcer of right lower legacute Venous refluxacuteCKD (chronic kidney disease) stage 3, GFR 30-59 ml/minchronic COPD (chronic obstructive pulmonary disease)chronicDiabeteschronicMorbid obesity chronicOSA (obstructive sleep apnea)chronicVenous stasis dermatitis of both lower extremitiesresolvedSymptomatic varicose veins of both lower extremities acuteVenous refluxacute [facility] Work Phone: Evaluation note* Diagnosis Onset Date [...] refluxacuteSymptomatic varicose veins of both lower extremitiesacute [facility] Work Phone: Evaluation note* Diagnosis Onset Date [...] varicose veins of both lower extremitiesacute Hypothyroidismacute [facility] Work Phone: Evaluation note* Diagnosis Onset Date Resolution Status Symptomatic varicose veins of both lower extremities acuteVenous refluxacuteSymptomatic varicose veins of both lower extremitiesacute HypothyroidismacuteMorbid obesity with BMI of 45.0-49.9, adultacuteWound of left lower extremityacute [facility] Work Phone: Evaluation note* Diagnosis Onset Date [...] rashacuteVenous stasis dermatitis of both lower extremitiesresolved [facility] Work Phone: Evaluation note* Diagnosis Diabetes mellitus due to underlying condition with diabetic polyneuropathy, with long-term current use of insulin ([facility]) documented in this encounter [facility] HealthcareEvaluation note* Diagnosis Chronic obstructive pulmonary disease, unspecified COPD type ([facility])- Primary Obstructive sleep apnea syndrome Obstructive sleep apnea (adult) (pediatric) documented in this encounter [facility] HealthcareEvaluation note* Diagnosis Type 2 diabetes mellitus with hyperglycemia, with long-term current use of insulin ([facility])- Primary Vitamin D deficiency Primary hypertension ([facility]) Unspecified essential hypertension Hyperlipemia, mixed ([facility]) Mixed hyperlipidemia Insulin long-term use ([facility]) Encounter for long-term (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 Encounter for dietary consultation Stage 3b chronic kidney disease (HCC) ([facility]) Class 3 severe obesity due to excess calories with serious comorbidity and body mass index (BMI) of45.0 to 49.9 in adult ([facility]) documented in this encounter [facility]* Diagnosis Diabetes mellitus due to underlying condition with diabetic polyneuropathy, with long-term current use of insulin ([facility])- Primary Pain due to onychomycosis of toenails [...] Diagnosis Type 2 diabetes mellitus with hyperglycemia ([facility]/HCC) documented in [facility] encounter [facility]* Diagnosis Xerosis cutis- Primary Other specified disease of sebaceous glands Diabetes mellitus due to underlying condition with diabetic polyneuropathy, with long-term current use of insulin ([facility]) Pain due to onychomycosis of toenails of both feet documented in this encounter [facility]* Diagnosis Type 2 diabetes mellitus with hyperglycemia, with long-term current use of insulin ([facility])- Primary Vitamin D deficiency Primary hypertension (CMS/HCC) Unspecified essential hypertension Hyperlipemia, mixed (CMS/HCC) Mixed hyperlipidemia Insulin long-term use ([facility]) Encounter for long-term (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 Encounter for dietary consultation Stage 3b chronic kidney disease (HCC) ([facility]) Class 3 severe obesity due to excess calories with serious comorbidity and body mass index (BMI) of45.0 to 49.9 in adult ([facility]) Type 2 diabetes mellitus with hyperglycemia (CMS/HCC) documented in this encounter [facility]* Diagnosis Chronic obstructive pulmonary disease, unspecified COPD type ([facility]/HCC) documented in this encounter [facility]* Diagnosis Type 2 diabetes mellitus with hyperglycemia, with long-term current use of insulin ([facility])- Primary Vitamin D deficiency Primary hypertension (CMS/HCC) Unspecified essential hypertension Hyperlipemia, mixed (CMS/HCC) Mixed hyperlipidemia Insulin long-term use ([facility]) Encounter for long-term (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 Encounter for dietary consultation Stage 3b chronic kidney disease (HCC) ([facility]) Class 3 severe obesity due to excess calories with serious comorbidity and body mass index (BMI) of45.0 to 49.9 in adult Type 2 diabetes mellitus with hyperglycemia ([facility]) documented [facility] encounter [facility]* Diagnosis Chronic obstructive pulmonary disease, unspecified COPD type ([facility])- Primary Obstructive sleep apnea syndrome Obstructive sleep apnea (adult) (pediatric) documented in this encounter [facility] HealthcareEvaluation note* Diagnosis Diabetes mellitus due to underlying condition with diabetic polyneuropathy, with long-term current use of insulin (HCC)- Primary Pain due to onychomycosis of toenails of both feet Xerosis cutis Other specified disease of sebaceous glands documented in this encounter [facility] HealthcareEvaluation note* Diagnosis Vitamin D deficiency- Primary Type 2 diabetes mellitus with hyperglycemia, with long-term current use of insulin (HCC) Primary hypertension Unspecified essential hypertension Hyperlipemia, mixed Mixed hyperlipidemia Insulin long-term use ([facility]) Encounter for long-term (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 Encounter for dietary consultation Stage 3b chronic kidney disease ([facility]-HCC) documented in this encounter [facility] HealthcareEvaluation note* Diagnosis Type 2 diabetes mellitus with hyperglycemia, with long-term current use of insulin ([facility]) documented in this encounter [facility] HealthcareEvaluation note* Diagnosis Diabetes mellitus due to underlying condition with diabetic polyneuropathy, with long-term current use of insulin (HCC)- Primary Pain due to onychomycosis of toenails of both feet Xerosis cutis Other specified disease of sebaceous glands documented in this encounter [facility] HealthcareHistory general Narrative - Reported* Type Description Date Medical History asthma Medical Historydiabetes mellitus IIMedical Historysleep apneaMedical History HypertensionMedical Historyspinal stenosisMedical HistoryCOPDMedical HistoryGERD Medical HistoryanxietySurgical Historyright and left Foot Surgery06/2012Surgical Nffduwsvtcqdtmjcuyo2391Mubiktth [id number] HistoryC section x 4Hospitalization Historysee aboveHospitalization Historychild x 4[facility] Other History general Narrative - ReportedNoKind[facility] Other History general Narrative - Reported* Type Description Date Medical History asthma Medical Historydiabetes mellitus IIMedical Historysleep apneaMedical History HypertensionMedical Historyspinal stenosisMedical HistoryCOPDMedical HistoryGERD Medical HistoryanxietyMedical HistoryanemiaMedical HistoryArthritisMedical HistorycataractsMedical HistoryGoutMedical Historykidney diseaseMedical History obesityMedical Historychronic depressionMedical Historythyroid diseaseMedical HistoryulcersSurgical Historyright and left Foot Surgery06/2012Surgical History [id number] [id number] HistoryC section x 4 Hospitalization Historysee aboveHospitalization Historychild x 4 [facility] Discharge instructions Additional Instructions POST [...] worsening of your eyesight. Please call your warehouse material handler during normal business hours. If after business hours call Dr. Nik Pineda at his cell [phone] or his office [phone].[facility] Work Phone: Hospital Discharge instructions Additional Instructions Monitor glucose levels as before Continue oxygen as per chronic orders Dietitian recommendations: *Glucerna, 1 container, twice daily with mealsBluffton Hospital Ctr Work Phone: Progress note Author Raymundo Sharmaemerita [facility] April 23, 2022 12:40pmNote Date/TimeJan2022 11:14[facility] [place] [address] Hem/Onc Follow Up Note - OP Signed Patient: Kelsea Turcios MR#: [id number] : 1960 Acct:[id number] Age/Sex: 61 / F Type: REG RCR [...] a creatinine of 1.64 correlating to EGFR, pob-Qnczcls-Zhqgjsvx 32. This has not significantly changed over the last year but is lower than prior labs from 9496-7780. Most recent calcium within normal limits and [...] 3.4, Globulin (PEP) 3.9, Albumin/Globulin (PEP) 0.9, Qphpz-0-Jpqhagafa 0.3, Fxntp-7-Jwqyxvgpc 0.9, Beta Globulins 1.4 H, Gamma Globulins 1.3, M-Damien 0.4 H, PEP Note , IgG 1443, IgA 625 H, IgM 98, Free Coolidge LC, Quant 162.6 H, Free Lambda LC, Quant 44.5 H, Free Coolidge/Lambda Ratio 3.65 H 04/17/22 10:05: PHA Creatinine Clear 51.63, Sodium 138, Potassium 3.5, Chloride 98, Carbon Dioxide 30.7 H, Anion Gap 12.8, BUN 17, Creatinine 1.26 H, Est GFR ( Amer) 52, Est GFR (Non-Af Amer) 43, Glucose 269 H, Calcium 9.1, Iron 53, TIBC 346, Iron Saturation 15.3 L, Transferrin 247, Bitccvmo16.6, Total Bilirubin 0.3, AST 23, ALT 22, Alkaline Phosphatase 121 H, Total Protein 7.0, Albumin 3.2, Globulin 3.8, Albumin/Globulin Ratio 0.8 04/17/22 10:05: Corrected WBC 10.8, Uncorrected WBC Count 10.8, RBC 4.02, Hgb 11.2 L, Hct 35.4, MCV88.1, MCH 27.9, MCHC 31.6 L, RDW 15.7 H, Plt Count 273, MPV 7.6, Neut % (Auto) 61.2, Lymph % (Auto)24.5, [place] % (Auto) 7.9, Eos % (Auto) 5.9, Baso % (Auto) 0.5, Nucleat RBC Rel Count 0.2, Neut # (Auto) 6.6, Lymph # (Auto) 2.6, [place] # (Auto) 0.8, Eos # (Auto) 0.6 [...] a creatinine of 1.64 correlating to EGFR, wkj-Pmymtls-Uftnruly 32. This has not significantly changed over the last year but is lower than prior labs from 0916-9117. Most recent calcium within normal limits and [...] for coordination of care (as documented) and mnsp-fe-txqk counseling of patient and/or family. Dictated By: Raymundo Galicia APRN DD/ 1114 Signed By: <Electronically signed by LUCI Galicia> 04/23/22 1240 [facility] Work Phone: Progress note Author Erica Diehl [facility] May 12, 2023 8:28amNote Date/TimeJanuary 2023 8:28[place] [address] Wound Center Provider Note Signed Patient: Kelsea Turcios MR#: [id number] : 1960 Acct:[id number] Age/Sex: 62 / F Copies to: Peri Tyson, DO Erica Diehl, COUNTY DIRECTOR WELFARE~ HPI Date of Visit Date of Visit: Date of Service: 05/12/2023 Time of Service: 08:22 Narrative HPI: 04/28/23 Kelsea is a 62-year-old female [facility] [...] I would like her to see a tin plater, especially if the venous studies do not [...] for the past year Mode of Arrival/ Long Chain Beamer: Personal vehicle Lives with:: Spouse Appetite Description: Within Normal Limits Smoking Status: Never smoker [facility] Medical History (Updated 05/12/23 @ 08:27 [...] By: <Electronically signed by LUCI Diehl> 05/12/23827 [facility] Work Phone: Progress note Author Roxane Bills [facility] September 02, 2023 9:51pmNote Date/TimeMay 2023 10:15[facility] [place] [address] Cancer Center Note Signed Patient: Kelsea Turcios MR#: [id number] : 1960 Acct:[id number] Age/Sex: 62 / F Type: DEP AMB [...] a creatinine of 1.64 correlating to EGFR, iov-Tlpjoxk-Vpzwjpnt 32. This has not significantly changed over the last year but is lower than prior labs from 9937-9014. Most recent calcium within normal limits and [...] stable IgG 1722, IgA 604, IgM 94. Coolidge/lambda light chain analysis was not reported. Since [...] no new symptoms. Labs are reviewed and irojuan has not improved over the last 6 [...] a creatinine of 1.64 correlating to EGFR, ekw-Rimkcyg-Juebonno 32. This has not significantly changed over the last year but is lower than prior labs from 0518-0971. Most recent calcium within normal limits and [...] visit and go over labs for MGUS [facility] Medical History Medical History (Updated 09/02/23 [...] Signed By: <Electronically signed by MD Roxane Bilsl> 09/02/23 2151 [facility] Work Phone: Revxrz for referral (narrative)No reason for referral information availableScci Hospital [facility] Work Phone: Reebtb for visit Narrativediscuss pain management [facility]NoKind[facility] Other Reason for visit NarrativeNeurosurgery Referral Update [facility] Other Reason for Referral Reason left hip pain Diagnosis 1 Left hip pain (M25.5 52) Referral Organization [facility] Family Doretha Marie Referring Provider First Name Peri Referring Provider Last Name Marbella Referring Provider Specialty [facility] Referred Organization [facility] Referred Address ,[place], [place],[address] Referred Provider Specialty Orthopaedic Surgery Referral Priority Routine Reason CANCELLED Excessiv e daytime somnolence, hx narcolepsy diagnosis, currently on CPAP for TANYA Diagnosis 1 TANYA (obstructive sle ep apnea) (G47.33) Referral Organization [facility] Family Doretha Marie Referring Provider First Name Peri Referring Provider Last Name Marbella Referring Provider Specialty [facility] Referred Organization [facility] Referred Address [address], [place],[address] Referred Provider Specialty Sleep Medici ne Referral Priority Routine General Notes Elaina Salcido 03/2022 02:41:07 PM > referral received, Feli already faxed referral to Central Scheduling. Closing referral Reason * Waiting for appt neurology records pending Diagnosis 1 Low back pain, unspe cified (M54.50) Referral Organization [facility] Family Doretha Marie Referring Provider First Name Giovanni Referring Provider Last Name Josh Referring Provider Specialty Family Medi cine Referred Organization [facility] Referred Provider Nicko Mckeon Referred Address [address] [facility],[place] [address] ,[place],[address] Referred Provider Specialty Pain Medicin e Referral Priority Routine General Notes Elaina Salcido 01:53:26 PM > referral received and sent p2p successful per log Reason * FU 07/29 ulcer Diagnosis 1 Non-pressure chronic ulcer of unspecified part of unspecified lower leg with unspecified severity (L97.909) Referral Organization [facility] Referring Provider First Name Giovanni Referring Provider Last Name [facility] Referring Provider Specialty Family Medi [employer] Referred Organization [facility] Referred Address [address] [place] [place],[address] Referred Provider Specialty Wound Care Referral Priority [...] Wound of left lower extremity Chief Complaint BH VENASEAL RT LEG GSV Amb Documentation [...] 8 :19am BH February 22, 2024 8:55am Follow Up March [...] 10:58 am COPD (chronic obstructive pulmonary dise [facility]) August 31, 2024 10:58am Degenerative joint disease [...] 2024 8:58am Iron deficiency anemia December 21, 8:58am Bipolar disorder with depression Sept2024 8:58am [...] 2024 9:59am Iron deficiency anemia December 26, 025 9:59am [facility] 9:59am Diabetes December 26, 2024 9:59am [...] 1:46 pm Encounter for chemotherapy management Ju 2024 1:46pm History of iron deficiency anemia [...] 2024 11 :23am Encounter for chemotherapy management Germania nate 2024 11:23am History of iron deficiency [...] 2024 11 :11am Encounter for chemotherapy management [place] nate 2024 11:11am History of iron deficiency [...] 11 :23am Encounter for chemotherapy management [facility] 2024 11:23am History of iron deficiency anemia [...] 11 :11am Encounter for chemotherapy management [facility] 2024 11:11am History of iron deficiency anemia [...] 27, 2024 8:56am On home oxygen therapy Sarahy 16th, 2 025 8:56am Pneumonia December 27, 2024 [...] 1:46 pm COPD (chronic obstructive pulmonary dise [facility]) October 27, 2024 1:46pm Diabetic neuropathy associat [...] Pruritic erythematous rash January 18, 2025 11:13am Bipolar 1 disorder January 18, [...] of alexandra tment January 18, 2025 11:13am Chief Complaint Admit Date tox check November [...] 11 :23am Encounter for chemotherapy management [facility] 2024 11:23am History of iron deficiency anemia [...] 11 :11am Encounter for chemotherapy management [facility] 2024 11:11am History of iron deficiency anemia [...] 11:13am History of iron deficiency anemia Octobe 2024 11:13am IgG myeloma January 18, 2025 [...] Morbid obesity February 08, 2025 9 :59am Chief Complaint Admit Date tox check November 22, 2024 11 :23am Follow Up Seen upstairs December 06 11:11am BH December 07, 2024 8: 42am f/u December 21, 2024 8:30am ABN Labs December 26, 2024 12:59pm trouble walking, shaking December 27, 2024 8:56am f/u January 18, 2025 11 :13am Abnormal SPEP February 08, 2025 9 :59am Initial MCAWV February 10, 2025 8 :14am Reason for Visit Admit Date Cancer related pain November 22, 2024 11 :23am Encounter for chemotherapy management [facility] 2024 11:23am History of iron deficiency anemia [...] 11 :11am Encounter for chemotherapy management [facility] 2024 11:11am History of iron deficiency anemia [...] IgG myeloma February 08, 2025 9 :06am Pruritic erythematous rash February 08, 2025 9:06am Thrombocytopenia February 08, 2025 9 :06am Bipolar [...] 45.0-49.9, ad ult February 08, 2025 9:06am Venous stasis dermatitis of both lower e xtremities February 08, 2025 9:06am COPD (chronic obstructive pulmonary dise ase) February [...] Morbid obesity February 08, 2025 9 :59am Hypothyroidism February 10, 2025 8 :14am Medicare annual wellness visit, initial February 10, 2025 8:14am Type 2 diabetes mellitus wit h diabetic neuropathy, unspecified February 10, 2025 8:14am Chief Complaint Admit Date tox check November 22, 2024 11 :23am Follow Up Seen upstairs December 06 11:11am BH December 07, 2024 8: 42am f/u December 21, 2024 8:30am ABN Labs December 26, 2024 12:59pm trouble walking, shaking December 27, 2024 8:56am f/u January 18, 2025 11 :13am Initial MCAWV February 10, 2025 8 :14am Abnormal SPEP February 13, 2025 1 0:14am E03.9 February 13, 2025 1 0:17am Reason for Visit Admit Date Cancer related pain November 22, 2024 11 :23am Encounter for chemotherapy management [facility] 2024 11:23am History of iron deficiency anemia [...] 11 :11am Encounter for chemotherapy management [facility] 2024 11:11am History of iron deficiency anemia [...] 2024 8:30am History of iron deficiency anemia 2024 8:30am IgG myeloma December 21, 2024 [...] oxygen therapy December 27, 2 025 8:56am Stage 3b chronic kidney disease 2024 8:56am Thrombocytopenia December 27, 2024 8:56am [...] hypercapnic respiratory failure February 10, 2025 8:14am COPD (chronic obstructive pulmonary dise ase) February 13, 2025 10:14am 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 February 13, 2025 10:14am 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) February 13, 2025 10:14am CKD (chronic kidney disease) stage 3, GF R 30-59 ml/min February 13, 2025 10:14am Iron deficiency anemia February 13 10:14am Bipolar disorder with depression Novembe r 2024 10:14am Diabetes February 13, 2025 1 0:14am Morbid obesity February 13, 2025 1 0:14am Chief Complaint Admit Date tox check November [...] home oxygen therapy December 27, 025 8:56am Stage 3b chronic kidney disease Septembe [...] 1:18pm Morbid obesity February 20, 2025 1:18pm Family History No Family History Records Found [...] upReason CommentsDM Foot CareDM NAIL CAREReasonOnset DateCommentsMed Hjadfr6011/28/2024 ReasonCommentsDM Foot Care Care Teams (unrecognized sec [...] Active Start: August 31, 2024 End: August 31Rashid Sherman ProviderActiveStart: August 31, 2024 End: August 31, 2024 Team Status: Inactive Member Role Status Dates Peri Tyson DO Primary Care Provider Active Start: September 19, 2024 End: September 19my JEREMIAH Billsttmariaelena ProviderActiveStart: September 19, 2024 End: September 19, 2024 Team Status: Inactive Member Role Status Dates Peri Tyson DO Primary Care Provider Active Start: October 06, 2024 End: October 06Rashid Sherman ProviderActiveStart: October 06, 2024 End: October 06, 2024 Team Status: Active Member Role Status Dates Peri Tyson DO Primary Care Provider Active Start: October 24, 2024 Rashid Wheatley ProviderActiveStart: October 24, 2024 Team Status: Inactive Member Role Status Dates Peri Tyson , DO Primary Care Provider Active Start: October 27, 2024 End: October 27Rashid Sherman ProviderActiveStart: October 27, 2024 End: October 27, 2024Peri Tyson , DOPrimary Care ProviderActiveStart: October 27, 2024 Team Status: Active Member Role Status Dates Peri Tyson DO Primary Care Provider Active Start: July 11, 2024 Carlos Wheatleyending ProviderActiveStart: July 11, 2024 Team Status: Inactive Member Role Status Dates Peri Tyson , DO Primary Care Provide r, Attending Provider Active Start: August 08, 2024 End: August 08, 2024 Team Status: Inactive Member Role Status Dates Peri Tyson , DO Primary Care Provider Active Start: December 30, 2023 End: December 29william London ROCKET SCIENTIST-CAttending ProviderActiveStart: December 30, 2023 End: December 30, 2023 Team Status: Inactive Member Role Status Dates Peri Tyson DO Primary Care Provide r, Attending Provider Active Start: February 09, 2024 End: February 09, 2024 Team Status: Active Member Role Status Dates Peri Tyson DO Primary Care Provider Active Start: February 22, 2024 Carlos Wheatleyending ProviderActiveStart: February 22, 2024 Team Status: Active Member Role Status Dates Roxane Bills MD Attending Provider Active Start: February 24, 2024 Brenden Groves , SHOAIBpark[facility] ProviderActiveStart: February 24, 2024 Peri Tyson , RAFAELrifanyy Care ProviderActiveStart: February 24, 2024 Raymundo Galicia , APRNActiveStart: February 24, 2024 Team Status: Active Member Role Status Dates Peri Tyson DO Primary Care Provider Active Start: June 29, 2023 Carlos Wheatleyending ProviderActiveStart: June 29, 2023 Team Status: Inactive Member Role Status Dates Peri Tyson DO Primary Care Provider Active Start: July 01, 2023 End: July 01, 2023Rashid Perera ProviderActiveStart: July 01, 2023 End: July 01, 2023 Team Status: Active Member Role Status Dates Peri Tyson , DO Primary Care Provider Active Start: July 01, 2023 Leda Chirag Luis Albertoforest ProviderActiveStart: July 01, 2023 Team Status: Inactive Member Role Status Dates Peri Tyson , DO Primary Care Provider Active Start: July 29, 2023 End: July 29, 2023Rashid Perera ProviderActiveStart: July 29, 2023 End: July 29, 2023 Team Status: Inactive Member Role Status Dates Peri Tyson , DO Primary Care Provider Active Start: July 31, 2023 End: July 30Rashid Pandey ProviderActiveStart: July 31, 2023 End: July 31, [...] Status: Inactive Member Role Status Dates Peri yTson , DO Primary Care Provide r, Attending Provider Active Start: August 19, 2023 End: August 19, 2023 Team Status: Inactive Member Role Status Dates Peri Tyson , DO Primary Care Provider Active Start: August 24, 2023 End: August 23Rashid Sherman ProviderActiveStart: August 24, 2023 End: August 24, 2023 Team Status: Active Member Role Status Dates Roxane Bills MD Attending Provider Active Start: September 02, 2023 Farshad Deleon ProviderActiveStart: September 02, 2023 RAFAEL Mirandarifanyy Care ProviderActiveStart: September 02, 2023 Raymundo Galicia , APRNActiveStart: September 02, 2023 Team Status: Inactive Member Role Status Dates Peri Tyson , DO Primary Care Provider Active Start: September 02, 2023 End: September 01my Sanju , MDAttending ProviderActiveStart: September 02, 2023 End: September 02, 2023 Team Status: Inactive Member Role Status Dates Peri Tyson DO Primary Care Provider Active Start: May 08, 2023 End: May 08, 2023Josr Marshall ProviderActiveStart: May 08, 2023 End: May 08, 2023 Team Status: Inactive Member Role Status Dates Peri Tyson DO Primary Care Provider Active Start: May 12, 2023 End: May 12, 2023Josr Marshall ProviderActiveStart: May 12, 2023 End: May 12, 2023 Team Status: Inactive Member Role Status Dates Peri Tyson DO Primary Care Provider Active Start: May 27, 2023 End: May 27, 2023Cresencio Chappell MDAttending ProviderActiveStart: May 27, 2023 End: May 27, 2023 Team Status: Active Member Role Status Dates Roxane Bills MD Attending Provider Active Start: March 04, 2023 SHOAIB De[facility]onencompass health [facility] hospitalana ProviderActiveStart: March 04, 2023 RAFAEL Mirandarifanyy Care ProviderActiveStart: March 04, 2023 Raymundo Galicia , APRNActiveStart: March 04, 2023 Team Status: Active Member Role Status Dates Peri Tyson DO Primary Care Provider Active Start: March 09, 2023 Truong Ward , Carlosending ProviderActiveStart: March 09, 2023 Team Status: Inactive Member Role Status Dates Peri Tyson DO Primary Care Provider Active Start: February 12, 2023 End: February 12enrique Bills MDAttending ProviderActiveStart: February 12, 2023 End: February 12, 2023 Team Status: Inactive Member Role Status Dates Peri Tyson DO Primary Care Provide r, Attending Provider Active Start: February 19, 2023 End: February 19, 2023 Team Status: Active Member Role Status Dates Peri Tyson DO Primary Care Provider Active Start: February 09, 2023 Truong Ward MDAttending ProviderActiveStart: February 09, 2023 Team Status: Active Member Role Status Dates Peri Tyson , DO Primary Care Provider Active Start: April 28, 2023 Erica Diehl , MILAGROSNAttenforest ProviderActiveStart: April 28, 2023 Team Status: Inactive [...] Status Dates Roxane Bills MD ActiveFarshad Macias ProviderActivePeri Tyson , DO Primary Care ProviderActiveMarcarmen Galicia , Josr Provider Active Team Status: Inactive Member Role Status Dates Peri Tyson , DO Primary Care Provider Active Domenico Whitmore MDAttmariaelena ProviderActive Team Status: Inactive Member Role Status Dates ePri Tyson , DO Primary Care Provider Active [...] Primary Care Provider Active Roxane Bills MDAttmariaelena ProviderActiveRandee Maciasing ProviderActive Team Status: Inactive Member Role Status Dates Giovanni Moreno , DO Primary Care Provider Active Peri Tyson , DOAttending ProviderActive Team Status: Active Member Role Status Dates Giovanni Moreno , DO Primary Care Provider Active Team Status: Inactive Member Role Status Dates Marcus Cummins MD Attending Provider Active Peri Tyson , RAFAELriraymundo Care ProviderActiveFarshad Mace ProviderActive Team Status: Active Member Role Status Alyssa Bills MD Attending Provider Active Farshad Macias ProviderActivePeri Tyson , RAFAELrifanyy Care ProviderActive Team Status: Inactive Member Role Status Dates ePri Tyson , DO Primary Care Provider Active Jez Josue DOAttending ProviderActive Team Status: Inactive Member Role Status Dates Peri Tyson , DO Primary Care Provider Active Nik Pineda MDAttmariaelena ProviderActive Team Status: Active Member Role Status Dates Roxane Bills MD Attending Provider Active Brenden Groves , DOReferring ProviderActiveGloria Luis Tyson , DOPrieliza [facility] memorial hospitaly Care ProviderActiveMary Rose Marie Galicia , APRNActive Team Status: Inactive Member Role Status Dates Peri Tyson , Primary Care Provider Active Rashid Sims ProviderActiveTeam MemberRelationshipSpecialtyStart Date End Date Giovanni Moreno MD [address] [facility] [place] [address] PCP - [facility]Or[facility] Systemly Medicine09/18/22Team MemberRelationshipSpecialtyStart DateEnd Date Giovanni Moreno MD [address] [facility] [address] [place] [id number] PCP - GeneralOr[facility] City [facility] Systemly Medicine09/18/22am MemberRelationshipSpecialtyStart DateEnd Date Giovanni Moreno MD [address] [facility] [place] [address] PCP - Generalmily Medicine09/18/22Team MemberRelationshipSpecialtyStart DateEnd Date Giovanni Moreno MD [address] [facility] [address] [place] [id number] PCP - Generalmily Medicine09/18/22Team MemberRelationshipSpecialtyStart DateEnd Date Giovanni Moreno MD [address] [facility] [place] [address] PCP - GeneralFamily Medicine09/18/22Team MemberRelationshipSpecialtyStart DateEnd Date Giovanni Moreno MD [address] [place] [address] PCP - [facility]09/18/22Team MemberRelationshipSpecialtyStart DateEnd Date Giovanni Moreno MD [address] [place] [address] PCP - [facility]09/18/22 Team Status: Active Member Role Status Dates Peri Tyson DO Primary Care Provider Active Start: November 24, 2023 Rashid Wheatley ProviderActiveStart: November 24, 2023 Team Status: Active Member Role Status Dates Peir Tyson DO Primary Care Provider Active Start: December 30, 2023 Rachana London , ROCKET SCIENTIST-CAttending ProviderActiveStart: December 30, 2023 Team Status: Active [...] 2024 Farshad Deleon ProviderActiveStart: March 02, 2024 RAFAEL Mirandariraymundo Care ProviderActiveStart: March 02, 2024 Raymundo Galicia , APRNActiveStart: March 02, 2024 Team MemberRelationshipSpecialtyStart DateEnd Date Giovanni Moreno MD [address] [place] [address] [facility]09/18/22Team MemberRelationshipSpecialtyStart DateEnd Date Giovanni Moreno MD [address] [place] [address] PCP - [facility] Medicine09/18/22Team MemberRelationshipSpecialtyStart DateEnd Date Giovanni Moreno MD [address] [place] [address] PCP - [facility]09/18/22 Team Status: Inactive Member Role Status Dates [...] tart: April 18, 2024 End: April 18, 2024Abe Miranda Care ProviderActiveStart: April 18, 2024 End: April 18, 2024Team MemberRelationshipSpecialtyStart DateEnd Date Giovanni Moreno MD [address] [place] [address] PCP - [facility]09/18/22Team MemberRelationshipSpecialtyStart DateEnd Date Giovanni Moreno MD [address] [place] [address] PCP - [facility]09/18/22Team MemberRelationshipSpecialtyStart DateEnd Date Giovanni Moreno MD [address] [place] [address] PCP - GeneralFamily Medicine09/18/22 Team Status: Inactive Member Role Status Dates Peri Tyson , Primary Care Provide r, Attending Provider Active Start: August 11, 2024 End: August 11, 2024Team MemberRelationshipSpecialtyStart DateEnd Date Giovanni Moreno MD [address] [place] [address] PCP - GeneralFamily Medicine09/18/22Team MemberRelationshipSpecialtyStart DateEnd Date Giovanni Moreno MD [address] [place] [address] PCP - Generalmily Medicine09/18/22Team MemberRelationshipSpecialtyStart DateEnd Date Giovanni Moreno MD [address] [place] [address] PCP - Generalmily Medicine09/18/22Team MemberRelationshipSpecialtyStart DateEnd Date Giovanni Moreno MD [address] [place] [address] PCP - Generalmily Medicine09/18/22Team MemberRelationshipSpecialtyStart DateEnd Date Giovanni Moreno MD [address] [place] [address] PCP - Generalmily Medicine09/18/22Team MemberRelationshipSpecialtyStart DateEnd Date Giovanni Moreno MD [address] [place] [address] PCP - Generalmily Medicine09/18/22Team MemberRelationshipSpecialtyStart DateEnd Date Giovanni Moreno MD [address] [place] [address] PCP - [facility] Medicine09/18/22Team MemberRelationshipSpecialtyStart DateEnd Date Giovanni Moreno MD [address] [place] [id number] PCP - [facility] Medicine09/18/22Team MemberRelationshipSpecialtyStart DateEnd Date Giovanni Moreno MD [address] [place] [address] PCP - [facility]09/18/22 Team Status: Inactive Member Role Status Dates Peri Tyson DO Primary Care Provider Active Start: October 06, 2024 End: October 06enrique Bills MDAvonnie ProviderActiveStart: October 06, 2024 End: October 06, 2024GlAbe Lee Care ProviderActiveStart: October 06, 2024 Team Status: Inactive Member Role Status Dates Peri Tyson DO Primary Care Provider Active Start: November 01, 2024 End: November 01, 2024MAC Monacottmariaelena ProviderActiveStart: November 01, 2024 End: November 01, 2024Team MemberRelationshipSpecialtyStart DateEnd Date Giovanni Moreno MD [address] [place] [address] PCP - [facility]09/18/22Team MemberRelationshipSpecialtyStart DateEnd Date Giovanni Moreno MD [address] [place] [address] [facility] - [facility]09/18/22 Team Status: Inactive Member Role Status Dates Peri Tyson DO Primary Care Provider Active Start: October 27, 2024 End: October 27enrique Bills , MDAttending ProviderActiveStart: October 27, 2024 End: October 27, 2024 Team Status: Active Member Role Status Dates Roxane Bills MD Attending Provider Active Start: November 22, 2024 Randee Deleoning ProviderActiveStart: November 22, 2024 Peri Tyson , DOPrifanyy Care ProviderActiveStart: November 22, 2024 Team Status: Inactive Member Role Status Dates Peri Tyson DO Primary Care Provider Active Start: November 22, 2024 End: November 22nilam Cummins , ROCKET SCIENTIST-CAttending ProviderActiveStart: November 22, 2024 End: November 22, 2024 Team Status: Active Member Role Status Dates Roxane Bills MD Attending Provider Active Start: December 06, 2024 Farshad Deleon ProviderActiveStart: December 06, 2024 Peri Tyson DOPrimarcarmen Care ProviderActiveStart: December 06, 2024 Team Status: Inactive Member Role Status Dates Peri Tyson DO Primary Care Provider Active Start: December 06, 2024 End: December 06nilam Cummins , ROCKET SCIENTIST-CAttending ProviderActiveStart: December 06, 2024 End: December 06, 2024 Team Status: Active Member Role Status Dates Peri Tyson DO Primary Care Provider Active Start: December 07, 2024 Truong Ward , MDAttending ProviderActiveStart: December 07, 2024 Team Status: Inactive Member Role Status Dates Peri Tyson DO Primary Care Provider Active Start: December 21, 2024 End: December 21enrique Bills MDAttending ProviderActiveStart: December 21, 2024 End: December 21, 2024 Team Status: Active Member Role Status Alyssa Bills MD Attending Provider Active Start: December 21, 2024 Farshad Deleon ProviderActiveStart: December 21, 2024 Peri A Tyson , DOPrimary Care ProviderActiveStart: December 21, 2024 Team Status: Active Member Role Status Dates Roxane Bills MD Attending Provider Active Start: December 26, 2024 Moises Deleonsharp [facility] ProviderActiveStart: December 26, 2024 Periroyce Tyson , DOPrimary Care ProviderActiveStart: December 26, 2024 Team Status: Inactive Member Role Status Dates Peri Tyson DO Primary Care Provider Active Start: December 26, 2024 End: December 26, 2024Chan Santana , Emergency ProviderActiveStart: December 26, 2024 End: December 26, 2024 Team Status: Active Member Role Status Dates Peri Tyson DO Primary Care Provider Active Start: December 27, 2024 Christopher Steve ProviderActiveStart: December 27, 2024 Alice Aguayoit ProviderActiveStart: December 27, 2024 Carlos Aguayoending ProviderActiveStart: December 27, 2024 Guillermo Oleary II, [...] Active Start: January 18, 2025 End: January 18Rashid Sherman ProviderActiveStart: January 18, 2025 End: January 18, 2025Peri Tyson , DOPrimary Care ProviderActiveStart: January 18, 2025 Team Status: Active Member Role/Relationship Status Dates Peri A Tyson , DO Primary Care Provider Active Team Status: Inactive Member Role/Relationship Status Dates Peri Tyson , DO Primary Care Provider Active Start: November 22, 2024 End: November 22nilam Cummins , ROCKET SCIENTIST-CAttending ProviderActiveStart: November 22, 2024 End: November 22, 2024 Team Status: Inactive Member Role/Relationship Status Dates Peri Tyson , DO Primary Care Provider Active Start: December 06, 2024 End: December 06nilam Cummins ROCKET SCIENTIST-CAttending ProviderActiveStart: December 06, 2024 End: December 06, 2024 Team Status: Active Member Role/Relationship Status Dates Peri Tyson , DO Primary Care Provider Active Start: December 07, 2024 Carlos Wheatleyending ProviderActiveStart: December 07, 2024 Team Status: Inactive Member Role/Relationship Status Dates Peri Tyson , DO Primary Care Provider Active Start: December 21, 2024 End: December 21Rashid Sherman ProviderActiveStart: December 21, 2024 End: December 21, 2024 Team Status: Inactive Member Role/Relationship Status Dates Peri Tyson , DO Primary Care Provider Active Start: December 26, 2024 End: December 26, 2024Juanjose Barillas ProviderActiveStart: December 26, 2024 End: December 26, 2024 Team Status: Active Member Role/Relationship Status Dates Peri Tyson , DO Primary Care Provider Active Start: December 27, 2024 Christopher Steve ProviderActiveStart: December 27, 2024 Afia Aguayo ProviderActiveStart: December 27, 2024 Sian Aguayo ProviderActiveStart: December 27, 2024 Victorina Silva II ProviderActiveStart: December 27, 2024 Rashid Johnson ProviderActiveStart: December 27, 2024 Sina Johnson ProviderActiveStart: December 27, 2024 Team Status: Inactive Member Role/Relationship Status Dates Peri Tyson , DO Primary Care Provider Active Start: January 18, 2025 End: January 18my Sanju , MDAttending ProviderActiveStart: January 18, 2025 End: January 18, 2025 Team Status: Inactive Member Role/Relationship Status Dates Peri Tyson DO Primary Care Provider Active Start: February 08, 2025 End: February 08Rashid Sherman ProviderActiveStart: February 08, 2025 End: February 08, 2025 Team Status: Active Member Role/Relationship Status Dates Roxane Bills MD Attending Provider Active Start: February 08, 2025 Randee Deleoning ProviderActiveStart: February 08, 2025 Abe Miranda Care ProviderActiveStart: February 08, 2025 Team Status: Inactive Member Role/Relationship Status Dates Peri Tyson DO Primary Care Provider Active Start: February 10, 2025 End: February 10, 2025Peri Tyson DOAttending ProviderActiveStart: February 10, 2025 End: February 10, 2025Team MemberRelationshipSpecialtyStart DateEnd Date Giovanni Moreno MD [address] [place] [address] [facility] Team Status: Inactive Member Role/Relationship Status Dates Peri Tyson DO Primary Care Provider Active Start: February 10, 2025 End: February 10, 2025Peri Tyson DOAttending ProviderActiveStart: February 10, 2025 End: February 10, 2025 Team Status: Active Member Role/Relationship Status Dates Roxane Bills MD Attending Provider Active Start: February 13, 2025 Farshad Deleon ProviderActiveStart: February 13, 2025 RAFAEL Mirandariraymundo Care ProviderActiveStart: February 13, 2025 Team Status: Inactive Member Role/Relationship Status Dates Peri Tyson DO Primary Care Provider Active Start: February 13, 2025 End: February 13, 2025Peri Tyson DOAttending ProviderActiveStart: February 13, 2025 End: February 13, 2025 Team Status: Inactive Member Role/Relationship Status Dates Peri Tyson DO Primary Care Provider Active Start: February 13, 2025 End: February 13, 2025Peri Tyson DOAttending ProviderActiveStart: February 13, 2025 End: February 13, 2025 Team Status: Inactive Member Role/Relationship Status Dates Peri Tyson DO Primary Care Provider Active Start: February 20, 2025 End: February 20nilam Cummins ROCKET SCIENTIST-CAttending ProviderActiveStart: February 20, 2025 End: February 20, 2025 Team Status: Active Member Role/Relationship Status Dates Roxane Bills MD Attending Provider Active Start: February 20, 2025 SHOAIB Deleoneferrana ProviderActiveStart: February 20, 2025 Abe Miranda Care ProviderActiveStart: February 20, 2025 Goals (unrecognized section and content) Goals may be documented in a n alternate section INFORMATION SOURCE (unrecogn ized section and content) DATE CREATED AUTHOR 07/15/2022 [facility] DATE CREATED AUTHOR AUTHOR'S ORGANIZ ATION 10/29/2024 [facility] DATE CREATED AUTHOR AUTHOR'S ORGANIZ ATION 12/20/2024 [facility] DATE CREATED AUTHOR AUTHOR'S ORGANIZ ATION 02/22/2025 [facility] FOR RECORDS PERTAINING TO [...] BE BASED ON THE PRIMARY CLINICAL RECORDS. [facility]. provides no warranty or guarantee of the accuracy or completeness of information in this document.
[2025-02-27 08:23] VITALS: PULSE 91; O2SAT 99
[2025-02-27] MEDS: 0.9 % SODIUM CHLORIDE 10 ML SYRINGE - SALINE FLUSH INJ (08:23)
[2025-02-27] MEDS: IOHEXOL 240 MG/ML - 10 ML VIAL 24 MG INJ (08:24)
[2025-02-27] MEDS: BUPIVACAINE HCL 0.25% PF 25 MG/10 ML VIAL INJ (08:24)
[2025-02-27] MEDS: LIDOCAINE HCL 2% 400 MG/20 ML MDV 3 ML INJ (08:24)
[2025-02-27] MEDS: METHYLPREDNISOLONE ACETATE 80 MG/ML VIAL INJ (08:24)
[2025-02-27 08:25] VITALS: BP 129/62; BP 136/62; PULSE 90; O2SAT 96
--- NOTE | 2025-02-27 08:27 | P.ON_ITS ---
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 Informed consent was obtained and placed on the chart.? Patient was brought to the medical procedure unit and placed in the prone position where a timeout was completed verifying the correct patient, procedure site, position, and planned special equipment using sterile aseptic technique.? Under direct fluoroscopic visualization a 25-gauge Quincke tipped spinal needle was advanced to the designated neural foramen where contrast dye was injected to show adequate spread.? The needle was inserted at level left L4-5. There was no evidence of vascular or adverse uptake.? Epidural spread was appreciated.? The above- mentioned injectate was then placed in a 1.5 mL aliquot preceded by negative aspiration.? The needle was removed. The needle was inserted and the procedure repeated at level left L5-S1.? The surgery site was covered.? Patient was taken to the postprocedural recovery area and monitored for an appropriate length of time before found suitable for discharge in the accompaniment of a responsible adult. Anesthesia: Local Surgeon: Emma Ramos Pathology: none sent Condition: stable Disposition: no change
== END 2025-02-27 08:32 | disposition home or self-care (01) ==
PROVIDERS: Visit Provider Anesthesiology
DX: M48.062 Spinal stenosis, lumbar region with neurogenic claudication (principal); E11.9 Type 2 diabetes mellitus without complications
CPT/HCPCS: 36415; 64483; 64484; 82948; J0665; J1010; Q9966

== ENCOUNTER 2025-03-16 09:31 | Outpatient (OUT) | payer MEDICARE, MEDICAID, SELFPAY ==
--- OUTSIDE RECORDS SUMMARY | 2025-03-06 10:10 | XMS_ITS | Encounter Summary ---
Author Organization [facility] Address [address] [place] [address] Care Team Providers Care Stopping Builder Name Role Phone Giovanni Moreno MD Primary Care Provider [phone] Reason for Visit * ReasonCommentsDiabetesFollow-up Encounter Details DateTypeDepartmentCare Team (Latest Contact Info)Zitqkvfrniu45/24/2025 10:10 AM ESTOffice Visit [facility] [address] [place] [address] Jeannie Aguilar MD [address] [place] [address] Type 2 diabetes mellitus with hyperglycemia, with long-term current use of insulin (HCC) (Primary Dx); Vitamin D deficiency; Primary hypertension; Hyperlipemia, mixed; Insulin long-term use (HCC); Encounter for dietary consultation; Stage 3b chronic kidney disease ([facility]) Social History Tobacco UseTypesPacks/DayYears UsedDateSmoking Tobacco: NeverPassive Smoke Exposure: NeverSmokeless Tobacco: NeverAlcohol UseStandard Drinks/WeekComments Never0 (1 standard drink = 0.6 oz pure alcohol)Caffeine intake: 2-3 cups per day CommentsUnknownSex and Gender InformationValueDate RecordedSex Assigned at BirthNot on fileLegal GkzIvwsmw60/15/2023 7:13 PM EDTGender IdentityNot on fileSexual OrientationNot on filedocumented as of this encounter Last Filed Vital Signs Vital SignReadingTime TakenCommentsBlood Dlaldajj882/7211 10:03 AM EST Hsexy256603/06/2025 10:03 AM ESTTemperature--Respiratory Ujxa105305/06/2024 10:03 AM ESTOxygen Bqhqlarbgo70%03/06/2025 10:03 AM ESTInhaled Oxygen Concentration-- Ydnbbn821 kg (221 lb)03/06/2025 10:03 AM BBDEnqjpc228.4 cm (5')03/06/2025 10:03 AM ESTBody Mass Index43.16105/06/2024 10:03 AM ESTdocumented in this encounter Progress Notes * Jeannie Aguilar MD - 03/06/2025 10:10 AM EST Kelsea Turcios is a 64 y.o. female No ref. provider found presents with chief complaint of Diabetesand Follow-up HPI: IM : 02/2025 Follow-up visit 03/06/2025 A1c 10.3 blood sugar 137, CGM 2-44-54 average 197, she is on Lantus 40, NovoLog 40 every meal, Ozempic 1 mg once weekly, Farxiga 10 mg once daily. 11/2024 History of Present Illness The patient is a 64-year-old female who presents for a follow-up visit on 11/14/2024. She is currently undergoing chemotherapy for multiple myeloma. Her A1c level in the office is 12.6, indicating high blood sugar levels. She is currently on Fdlahr19 units and NovoLog 40 units with every [...] New patient sent from Pain Management in [place], Dr. Brenden Groves, for uncontrolled diabetes. A1c [...] Blood Gluc Sensor (FreeStyle Alfredo 2 Sensor) [facility] Continuous Glucose Claims Sorter (FreeStyle Alfredo 3 [place]) device USE DIRECTED Coreg 25 mg, Every 12 hours dapagliflozin [...] MG tablet gabapentin (Neurontin) 600 MG tablet glucose blood (True Metrix Blood Glucose Test) test strip USE TWICE A DAY TO TEST BLOOD SUGARS. HYDROcodone-acetaminophen ([place]) 5-325 MG tablet hydrOXYzine HCl (Atarax) 10 MG tablet hydrOXYzine HCl (ATARAX) 25 mg, 3 times daily PRN ipratropium-albuterol (Duo-Neb) 0.5-2.5 mg/3 mL nebulizer solution 3 mL, Nebulization, 4 times daily PRN Lantus SoloStar 40 Units, Subcutaneous, 2 times daily levothyroxine (Synthroid, Levoxyl) 75 MCG tablet loperamide (Imodium A-D) 2 MG tablet 1 tablet mirtazapine (Remeron) 45 MG tablet montelukast (SINGULAIR) 10 mg, Oral, Every 24 hours NovoLOG FLEXPEN 40 Units, Subcutaneous, 3 times daily before meals olopatadine (Patanol) 0.1 % ophthalmic solution omeprazole (PriLOSEC) [address] capsule Every 24 hours oxybutynin XL (Ditropan XL) 10 MG 24 hr tablet Every 24 hours Ozempic (0.25 or 0.5 MG/DOSE) 0.5 mg, Subcutaneous, Every 7 days Ozempic (2 MG/DOSE) 2 mg, Subcutaneous, Every 7 days prednisoLONE acetate (Pred-Forte) 1 % ophthalmic suspension Refresh Tears 0.5 % ophthalmic solution Rexulti 4 MG tablet 1 tablet, Daily sucralfate (Carafate) 1 g tablet Every 12 hours theophylline ER (THAD-24) 200 mg, Oral, Every 24 hours tiZANidine (ZANAFLEX) 4 mg, Every evening True Comfort Twist Top Lancets misc USE TWICE A DAY WITH LANCING DEVICE. zonisamide (Zonegran) 25 MG capsule ALLERGIES: Allergies Allergen Reactions Honey Anaphylaxis and Hives Codeine Itching and Rash Morphine Rash Gastrointestinal Upset Tramadol Hallucinations Past Medical History: Diagnosis Date Acute hyperkalemia 01/14/2024 Acute metabolic encephalopathy 01/14/2024 PETER (acute kidney injury) 01/14/2024 Anemia Anxiety Arthritis Bipolar 1 disorder (HCC) 01/14/2024 Bipolar disorder with depression ([facility]) 01/14/2024 Breast cancer screening by mammogram 01/14/2024 Chronic depression 01/14/2024 Chronic fatigue 01/14/2024 Chronic hypercapnic respiratory failure (HCC) 01/14/2024 Chronic kidney disease, stage 3 unspecified ([facility]) COPD (chronic obstructive pulmonary disease) ([facility]) Debility 01/14/2024 Degenerative joint disease of cervical and lumbar spine 01/14/2024 Dehydration 01/14/2024 Diabetes ([facility]) 01/14/2024 Diabetic neuropathy ([facility]) 07/15/2023 Diarrhea 01/14/2024 Difficulty walking Disorder of sacroiliac joint 01/14/2024 DM type 2 (diabetes mellitus, type 2) ([facility]) Elevated troponin 01/14/2024 Epigastric pain 01/14/2024 Gait instability 01/14/2024 GERD (gastroesophageal reflux disease) Hallucinations, visual 01/14/2024 Hemosiderin pigmentation of skin 01/14/2024 Hypertension Hypomagnesemia 01/14/2024 Hypothyroidism 01/14/2024 Iron deficiency anemia 01/14/2024 Irritable bowel disease 01/14/2024 Kidney disease 01/14/2024 FDC (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 ([facility]) 01/14/2024 Lumbar degenerative disc disease 01/14/2024 Lumbar spondylolysis Lumbosacral spondylosis without myelopathy 01/14/2024 Major depressive disorder with psychotic features ([facility]) 01/14/2024 Mixed hyperlipidemia Monoclonal gammopathy 01/14/2024 Morbid obesity with BMI of 40.0-44.9, adult ([facility]) Morbid obesity with BMI of 45.0-49.9, adult ([facility]) 01/14/2024 Multiple falls 01/14/2024 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) ([facility]) 01/14/2024 OM (onychomycosis) On home oxygen therapy 01/14/2024 TANYA (obstructive sleep apnea) Osteoarthritis of back Other chronic pain 01/14/2024 Peripheral edema 01/14/2024 Pruritic erythematous rash 01/14/2024 Rhabdomyolysis 01/14/2024 Stage 3 chronic kidney disease ([facility]) 01/14/2024 Symptomatic varicose veins of both lower extremities 01/14/2024 Thyroid disease 01/14/2024 Type 2 diabetes mellitus without complications ([facility]) 01/14/2024 Ulcer of left lower leg ([facility]) 01/14/2024 UTI (urinary tract infection) 01/14/2024 Venous reflux 01/14/2024 Venous stasis ulcer limited to breakdown of skin without varicose veins ([facility]) 01/14/2024 Vitamin D deficiency, unspecified Past Surgical [...] no Lab Results Component Value Date HGBA1C 10.3 03/06/2025 HGBA1C 12.6 11/14/2024 HGBA1C 10.9 08/22/2024 Lab Results Component Value Date GLU 137 03/06/2025 GLU 66 (L) 03/06/2025 GLU 153 (H) 02/18/2025 05/25/2024 10:41 AM 08/22/2024 11:37 AM 08/25/2024 1:25 PM 09/30/2024 9:57 AM 11/14/2024 9:04 AM 12/19/2024 8:48 AM 03/06/2025 10:03 AM Vitals BMI 44.33 kg/m2 44.72 kg/m2 38.79 kg/m2 38.79 kg/m2 45.7 kg/m2 45.7 kg/m2 43.16 kg/m2 BSA (m2) 2.09 m2 2.1 m2 2.16 m2 2.16 m2 2.12 m2 2.12 m2 2.06 m2 Systolic 120 120 120 108 Diastolic 86 78 78 72 Heart Rate 97 71 75 96 95 SpO2 94 % 95 % 98 % 94 % 94 % Resp 18 16 16 18 16 18 Height (in) 5' 5' 5' 4 5' 4 5' 5' 5' Weight (lb) 227 229 226 226 234 234 221 Visit Report Report Report Report Report Report Report Report ASSESSMENT AND PLAN: Assessment/Plan Diagnoses and all orders for this visit: Type 2 diabetes mellitus with hyperglycemia, with long-term current use of insulin (HCC) - POCT glucose manually resulted - POCT glycosylated hemoglobin (Hb A1C) docked device - Semaglutide, 2 MG/DOSE, (Ozempic, 2 MG/DOSE,) 8 MG/3ML solution pen-injector; Inject 2 mg under the skin every 7 (seven) days We will continue with Lantus 40, NovoLog 40 every meal, increase Ozempic to 2 mg once weekly, continue with Farxiga. Vitamin D deficiency Primary hypertension Hyperlipemia, mixed Insulin long-term use ([facility]) Encounter for dietary consultation Stage 3b chronic kidney disease ([facility]) Follow up in about 3 months (around 06/06/2025). documented in this encounter Plan of Treatment DateTypeDepartmentCare Team (Latest Contact Info)Zazgeutqkkd77/08/2025 1:50 PM ESTOffice Visit [facility] [address] [place] [address] Mack Pride DPM [address] [address] 04/18/2025 1:45 PM ESTOffice Visit [facility] [address] [place] [phone] Svetlana Garcia, DO [address] [place] [place] [address] 06/07/2025 11:00 AM ESTOffice Visit [facility] [address] [place] [address] Jeannie Aguilar MD [address] [place] [address] documented as of this encounter Procedures Procedure NamePriorityDate/TimeAssociated DiagnosisCommentsPOCT GLYCOSYLATED HEMOGLOBIN (HGB A1C)Zaalxeh0703/06/2025 10:13 AM EST Type 2 diabetes mellitus with hyperglycemia, with long-term current use of insulin ([facility]) POCT ZFICPTTBritkja96/24/2025 10:13 AM EST Type 2 diabetes mellitus with hyperglycemia, with long-term current use of insulin ([facility]) documented in this encounter Results * POCT glycosylated hemoglobin (Hb A1C) docked device (03/06/2025 10:13 AM EST) ComponentValueRef RangeTest MethodAnalysis TimePerformed AtPathologist SignatureHemoglobin A1C10.3Specimen (Source)Anatomical Location / Laterality Collection Method / VolumeCollection TimeReceived TimeBloodVenous blood specimen / Cixafft3203/06/2025 10:13 AM EST Narrative Authorizing ProviderResult TypeResult StatusJeannie Aguilar MDPOINT OF CARE TEST ENTER/EDIT ORDERABLESFinal Result * POCT glucose manually resulted (03/06/2025 10:13 AM EST)ComponentValueRef RangeTest MethodAnalysis TimePerformed AtPathologist SignatureGlucose Blood, RWA423qg/dLSpecimen (Source)Anatomical Location / LateralityCollection Method / VolumeCollection TimeReceived TimeBloodCapillary blood specimen / Unknown 03/06/2025 10:13 AM EST Narrative Authorizing ProviderResult TypeResult Randell Aguilar MDPOINT OF CARE TEST ENTER/EDIT ORDERABLESFinal Result documented in this encounter Visit Diagnoses Diagnosis Type 2 diabetes mellitus with hyperglycemia, with long-term current use of insulin (HCC)- Primary Vitamin D deficiency Primary hypertension Unspecified essential hypertension Hyperlipemia, mixed Mixed hyperlipidemia Insulin long-term use (HCC) Encounter for long-term (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 Encounter for dietary consultation Stage 3b chronic kidney disease ([facility]) documented in this encounter Care Teams Team MemberRelationshipSpecialtyStart DateEnd Date Giovanni Moreno MD [address] [place] [address] PCP - GeneralFamily Medicine09/18/22documented as of this encounter
--- OUTSIDE RECORDS SUMMARY | 2025-03-16 09:34 | XMS_ITS | Clinical Summary ---
Author Organization [facility] tem Address [id number] [place] [address] Care Team Providers Care Molding Machine Operator Name Role Phone Svetlana Garcia DO Primary Care Provider [phone] Social History Tobacco UseTypesPacks/DayYears UsedDateSmoking Tobacco: Never AssessedChildcare AnswerDate PrgrbjksZouzkixcuXxsjauw99/12/2019EmploymentAnswerDate Recorded ZtzlicgmwhPgzyuhx23/12/2019CommentsUnknownSex and Gender Information ValueDate RecordedSex Assigned at BirthNot on fileLegal IfdOxajyr20/06/2015 12:11 PM EDTGender IdentityNot on fileSexual OrientationNot on file Plan of Treatment Health MaintenanceDue DateLast DoneCommentsDepression Jiwfzaiiu64/28/1971Tobacco Tanvxbjfr03/28/1971Adult BMI Btfviwdnu37/28/1977DTaP,Tdap and Td Vaccines (1 - Tdap)1977Zoster (Shingles) Vaccine (1 of 2)2008Fall Risk Screening 10/09/2023Influenza Bauepbg4312/12/2024RSV ( or age 60+ yrs) (1 - 1-dose 75+ series)2033 [employer] Not on file Insurance Care Teams Team MemberRelationshipSpecialtyStart DateEnd Svetlana Garcia DO PCP - GeneralInternal Medicine09/21/20
--- OUTSIDE RECORDS SUMMARY | 2025-03-16 09:34 | XMS_ITS | Encounter Summary ---
Author Organization [facility] Address [address] [place] [address] Care Team Providers Care Director Check Name Role Phone Giovanni Moreno MD Primary Care Provider Encounter Details DateTypeDepartmentCare Team (Latest Contact Info)Lwaeowqembo09/24/2025External Result Encounter [facility] Unsolicited Roxane Bills MD [address] [place] [address] Social History Tobacco UseTypesPacks/DayYears UsedDateSmoking Tobacco: NeverPassive Smoke Exposure: NeverSmokeless Tobacco: NeverAlcohol UseStandard Drinks/WeekComments Never0 (1 standard drink = 0.6 oz pure alcohol)Caffeine intake: 2-3 cups per day CommentsUnknownSex and Gender InformationValueDate RecordedSex Assigned at BirthNot on fileLegal CjfKsfykx19/15/2023 7:13 PM EDTGender IdentityNot on fileSexual OrientationNot on filedocumented as of this encounter Plan of Treatment DateTypeDepartmentCare Team (Latest Contact Info)Aefcycovzuu41/08/2025 1:50 PM ESTOffice Visit [facility] [address] [place] [phone] Mack Pride DPM [address] [address] 04/18/2025 1:45 PM ESTOffice Visit [facility] [address] [place] [phone] Svetlana Garcia DO [address] [place] [address] 06/07/2025 11:00 AM ESTOffice Visit [facility] [place] [facility] [address] [place] [phone] Jeannie Aguilar MD [address] [place] [address] documented as of this encounter Procedures Procedure NamePriorityDate/TimeAssociated DiagnosisCommentsCBC WITH AUTO QUFDUVIHJUTWQRXQ66/24/2025 9:07 AM EST documented in this encounter Results * (ABNORMAL) CBC auto differential (03/06/2025 9:07 AM EST)ComponentValueRef RangeTest MethodAnalysis TimePerformed AtPathologist NmqkhzdarXYM67.03.8 - 11.6 [CFU]/mL03/06/2025 9:58 AM [facility] CtrUNCORRECTED WHITE BLOOD COUNT11.03.8 - 11.6 10*3/uL03/06/2025 9:58 AM [facility] CtrRBC3.993.60 - 5.00 10*6/uL03/06/2025 9:58 AM [facility] JnwYESZQBATVK75.811.8 - 15.4 g/dL03/06/2025 9:58 AM [facility] EohUGERMPYBLQ71.234.0 - 46.4 %03/06/2025 9:58 AM [facility] BabLSM26.680 - 100 fL03/06/2025 9:58 AM [facility] AnyGPM91.524.7 - 34.3 pg03/06/2025 9:58 AM [facility] WvnGPMQ99.532.0 - 35.0 g/dL03/06/2025 9:58 AM [facility] CtrRED CELL DISTRIBUTION WIDTH, RDW16.1(H)11.9 - 15.3 %03/06/2025 9:58 AM [facility] CtrPLATELET PYDPD948041 - 450 10*3/uL03/06/2025 9:58 AM [facility] CtrMEAN PLATELET VOLUME, MPV7.96.3 - 10.7 fL03/06/2025 9:58 AM [facility] CtrNEUTROPHILS, %71.6. %03/06/2025 9:58 AM [facility] CtrLYMPHOCYTES, %20.2. %03/06/2025 9:58 AM [facility] CtrMONOCYTE/MACROPHAGE, %5.9. %03/06/2025 9:58 AM [facility] CtrEOSINOPHILS, %1.2. %03/06/2025 9:58 AM [facility] CtrBASOPHILS, %1.1. %03/06/2025 9:58 AM [facility] CtrNRBC0.20 - 0.5 /100{WBC}03/06/2025 9:58 AM [facility] CtrNEUTROPHILS7.9(H)1.8 - 7.7 10*3/uL03/06/2025 9:58 AM [facility] CtrLYMPHOCYTES2.21.00 - 4.8 10*3/uL03/06/2025 9:58 AM [facility] CtrMONOCYTES0.60.0 - 0.8 10*3/uL03/06/2025 9:58 AM [facility] CtrEOSINOPHILS0.10.0 - 0.45 10*3/uL03/06/2025 9:58 AM [facility] CtrBASOPHILS0.10.0 - 0.2 10*3/uL 03/06/2025 9:58 AM [facility] CtrSpecimen (Source) Anatomical Location / LateralityCollection Method / VolumeCollection Time Received TimeBlood (Blood)03/06/2025 9:07 AM EST03/06/2025 9:07 AM EST Narrative Authorizing ProviderResult TypeResult StatusRoxane Bills MDLAB BLOOD ORDERABLES Final ResultPerforming OrganizationAddressCity/State/ZIP CodePhone Number [facility] [address] [facility] [place] [address], [facility] [address] [place] [address] documented in this encounter Visit Diagnoses Not on filedocumented in this encounter Care Teams Team MemberRelationshipSpecialtyStart DateEnd Date Giovanni Moreno MD [address] [facility] [place] [address] PCP - GeneralFamily Medicine09/18/22documented as of this encounter
--- OUTSIDE RECORDS SUMMARY | 2025-03-16 09:34 | XMS_ITS | Clinical Summary ---
Author Organization [facility] Address [address] [place] [address] Care Team Providers Care Maintenance Department Technician Name Role Phone Giovanni Moreno MD Primary Care Provider Allergies Active AllergyReactionsCriticalityNoted DateCommentsCodeineItching,RashLow 09/22/2022HoneyAnaphylaxis,XxvysSmok18/28/3661IuubezjfXwlqHnm56/12/2023 Gastrointestinal Upset ApxwsuqzCsyficmdtcjpbcXkb95/22/2024 Medications MedicationSigDispense QuantityRefillsLast FilledStart DateEnd DateStatus amLODIPine [...] FOR 30 DAYS 16 mL 12/05/2022ctive HYDROcodone-acetaminophen ([place]) 5-325 MG tablet 02/06/2023ctive hydrOXYzine HCl (Atarax) 10 MG tablet 12/30/2022ctive prednisoLONE acetate (Pred-Forte) 1 % ophthalmic suspension 01/26/2023ctive tiZANidine (Zanaflex) 4 MG tablet Take 4 mg by mouth in the eveningActive Refresh Tears 0.5 % ophthalmic solution 03/18/2023ctive Continuous Blood Gluc Sensor (FreeStyle Alfredo 2 Sensor) [facility] [place] 07/01/2023ctive BD Pen Needle Micro U/F 32G X 6 MM [facility] [place] 05/05/2023ctive Fetzima 120 MG extended release capsule 07/06/2023ctive mirtazapine (Remeron) 45 MG tablet 07/06/2023ctive olopatadine (Patanol) 0.1 % ophthalmic solution 06/26/2023ctive furosemide (Lasix) 40 MG tablet 05/17/2023ctive diclofenac sodium 1 % gel Indications:Diabetes mellitus due to underlying condition with diabetic polyneuropathy, with long-term current use of insulin ([facility])APPLY 4 GRAMS TO AFFECTED AREA 4 TIMES DAILY 100 g ctive aspirin 81 MG EC tablet 07/01/2023ctive clobetasol (Temovate) 0.05 % cream 11/08/2023ctive cloNIDine (Catapres) 0.1 MG tablet 07/01/2023ctive loperamide (Imodium A-D) 2 MG tablet 1 orpirb5307/01/2023ctive zonisamide (Zonegran) 25 MG capsule 07/01/2023ctive gabapentin [...] ROUTE 1 TIMES PER DAY IN THE BSJFWHDZO15/28/2025Active hydrOXYzine HCl (Atarax) 25 MG tablet Take 25 mg by mouth 3 (three) times a day as needed for astcvus92/02/2025Active Continuous Glucose [employer] (LomographyStyle Alfredo 3 [place]) device Indications:Type 2 diabetes mellitus with hyperglycemia, with long-term current use of insulin (HCC)USE DIRECTED 1 each 5Active Semaglutide,0.25 or 0.5MG/DOS, (Ozempic, 0.25 or 0.5 MG/DOSE,) 2 MG/3ML solution pen-injector Indications:Type 2 diabetes mellitus with hyperglycemia, with long-term current use of insulin ([facility])INJECT 0.5 MG UNDER THE SKIN 1 (ONE) TIME PER WEEK 6 mL 5Active insulin glargine (Lantus SoloStar) 100 UNIT/ML pen Indications:Type 2 diabetes mellitus with hyperglycemia, with long-term current use of insulin ([facility])Inject 40 Units under the skin in the morning and 40 Units before bedtime. 72 mL 5Active glucose blood (True Metrix Blood Glucose Test) test strip Indications:Type 2 diabetes mellitus with hyperglycemia, with long-term current use of insulin (HCC)USE TWICE A DAY TO TEST BLOOD SUGARS. 200 each 508/6Active True Comfort Twist Top Lancets [facility] [place] Indications:Type 2 diabetes mellitus with hyperglycemia, with long-term current use of insulin (HCC)USE TWICE A DAY WITH LANCING DEVICE. 200 each 5Active Semaglutide, 2 MG/DOSE, (Ozempic, 2 MG/DOSE,) 8 MG/3ML solution pen-injector Indications:Type 2 diabetes mellitus with hyperglycemia, with long-term current use of insulin ([facility])Inject 2 mg under the skin every 7 (seven) days 6 mL 5Active semaglutide (Ozempic, 1 MG/DOSE,) 2 MG/1.5ML solution pen-injector Indications:Type 2 diabetes mellitus with hyperglycemia, with long-term current use of insulin ([facility])Inject 1 mg under the skin 1 (one) time per week 9 mL Discontinued(Dose adjustment) Active Problems ProblemNoted DateDiagnosed DateObstructive sleep apnea mbfcaxzd09/08/2021hronic obstructive pulmonary basamhv1307/19/2020 Resolved Problems ProblemNoted DateDiagnosed DateResolved DateAcute dbviurdbjzov31/03/2024 01/14/2024cute metabolic qpbjsxtkjkzvgy77KI (acute kidney injury)ipolar 1 nkcgqgti60ipolar disorder with mnrxhwdkfg91reast cancer screening by mammogram hronic mjgnohskxg09hronic hypercapnic respiratory furbiil26hronic mfrrwik73 Ivdolqke48egenerative joint disease of cervical and lumbar spineehydrationiarrhea01/14/2024 01/14/2024isorder of sacroiliac jointElevated troponin Epigastric painGait instability Hallucinations, kcnjig41Hemosiderin pigmentation of skinHypomagnesemia Tlcodrkd67HypothyroidismThyroid disease Iron deficiency xypqig68Irritable bowel uorcypy79Kidney dacujal91Long term (current) use of xkjkyjn70Lumbar degenerative disc epazfkz5601/14/2024 01/14/2024Lumbosacral spondylosis without bwcsepxiyy32Major depressive disorder with psychotic ailsdgud09Monoclonal otaycxzwvh46Morbid obesity with BMI of 45.0-49.9, adult Multiple falls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)On home oxygen edpcuwn46Other chronic pain Peripheral edemaruritic erythematous rash01/14/2024 01/14/20242681Saeswnwgrihzve53/03/202410/03/2024Stage 3 chronic kidney disease Type 2 diabetes mellitus without pcdntnifftrbf89/03/2024 01/14/2024UTI (urinary tract infection)Venous reflux Symptomatic varicose veins of both lower extremities Venous stasis ulcer limited to breakdown of skin without varicose veinsUlcer of left lower leg Diabetic kdthrlncpo83 Encounters DateTypeDepartmentCare UajwBsqzhulpweh82/24/2025 10:10 AM ESTOffice Visit [facility] [address] [place] [phone] Jeannie Aguilar MD Type 2 diabetes mellitus with hyperglycemia, with long-term current use of insulin (HCC) (Primary Dx); Vitamin D deficiency; Primary hypertension; Hyperlipemia, mixed; Insulin long-term use (HCC); Encounter for dietary consultation; Stage 3b chronic kidney disease ([facility])03/06/2025External Result Encounter [facility] External Department Unsolicited Roxane Bills MD 03/06/2025External Result Encounter [facility] External Department Unsolicited Roxane Bills MD 03/06/2025amboo flowsheet [facility] [address] [place] [address] Jeannie Aguilar MD 02/24/2025External Result Encounter [facility] External Department Unsolicited Roxane Bills MD 02/24/2025External Result Encounter [facility] External Department Unsolicited Roxane Bills MD 02/24/2025External Result Encounter [facility] External Department Unsolicited Roxane Bills MD 02/24/2025External Result Encounter [facility] External Department Unsolicited Roxane Bills MD 02/18/2025External Result Encounter [facility] External Department Unsolicited Roxane Bills MD 02/18/2025External Result Encounter [facility] External Department Unsolicited Roxane Bills MD 02/13/2025External Result Encounter [facility] External Department Unsolicited Roxane Bills MD 02/13/2025External Result Encounter [facility] External Department Unsolicited Roxane [...] 12/19/2024 9:00 AM EDTOffice Visit [facility] [address] [place] [address] Mack Pride DPM Diabetes mellitus due to underlying condition with diabetic polyneuropathy, with long-term current use of insulin (HCC) (Primary Dx); Pain due to onychomycosis of toenails of both feet; Xerosis cutis12/19/2024External Result Encounter [facility] External Department Unsolicited Roxane Bills MD 12/19/2024External Result Encounter [facility] External Department Unsolicited Roxane Bills MD 12/19/2024amboo flowsheet [facility] [address] [place] [phone] Mack Pride DPM from Last 3 Months Immunizations ImmunizationAdministration DatesNext DueHepB-CpG12/16/2022,06/13/2022Influenza Whole02/23/2013Influenza, injectable, MDCK, preservative free, quadrivalent 12/25/2021,01/03/2021,02/16/2019Influenza, injectable, MDCK, quadrivalent 01/28/2018Influenza, injectable, voqskybbxsra63/01/2017Influenza, injectable, quadrivalent, preservative free12/12/2022,07/01/2022,01/16/2020Influenza, seasonal, emnsbyvber75/14/2022,01/03/2021Influenza, trivalent, adjuvanted 12/17/2023Moderna SARS-CoV-2 Booster Jvreutmdthx43/29/2021Moderna SARS-CoV-2 Bvpzpcptnae51/01/2022,03/12/2021,01/24/2021,1Pneumococcal Conjugate PCV 13005/11/2018Pneumococcal Conjugate PCV 2Pneumococcal Polysaccharide VHCQ9372,07/31/2020,07/09/2016,05/21/2012RSV, recombinant, protein subunit RSVpreF, adjuvant reconstitu, 120mcg/0.5mL, PF (Arexvy)12/21/2023, 01/28/2023Tdap1,12/25/2021Zoster, Pkflajjdyol91/11/2021,09/13/2020 Family History Medical HistoryRelationNameCommentsDiabetesFatherGlaucomaFatherHypertension FatherAlcohol abuseMotherRelationNameStatusCommentsFatherDeceased (Age [...] Last Filed Vital Signs Vital SignReadingTime TakenCommentsBlood Dmojyuht617/7211 10:03 AM EST Exahf064103/06/2025 10:03 AM ESTTemperature--Respiratory Dodi429005/06/2024 10:03 AM ESTOxygen Nzgkzklpuf57%03/06/2025 10:03 AM ESTInhaled Oxygen Concentration-- Gvnmlt097 kg (221 lb)03/06/2025 10:03 AM RVLZodjgk871.4 cm (5')03/06/2025 10:03 AM ESTBody Mass Index43.16105/06/2024 10:03 AM EST Plan of Treatment DateTypeDepartmentCare Team (Latest Contact Info)Uslpjkbavms42/08/2025 1:50 PM ESTOffice Visit [facility] [address] [place] [address] Mack Pride DPM [address] [address] 04/18/2025 1:45 PM ESTOffice Visit [facility] [address] [place] [phone] Svetlana Garcia DO [address] [place] [address] 06/07/2025 11:00 AM ESTOffice Visit [facility] [address] [place] [address] Jeannie Aguilar MD [address] [place] [address] Health MaintenanceDue DateLast DoneCommentsCT Yeqjyapybhrr60/28/1959Colonoscopy 1958Colorectal Cancer Opbtfdaai42/28/1959FIT-DNA1958FIT1958 FOBT1958 9933Hhmacihnrfkmx22/28/0038Raniabaip11/28/1999COVID-19 Vaccine ( season), 10/28/2021, 06/11/2021, Additional history existsPneumococcal Vaccine: 65+ QyawoUmvbfgrhq49/08/2022, 10/28/2021, 07/31/2020, Additional history existsInfluenza BjizjjuHjwvgoqbh22/03/2025, 12/17/2023, 12/12/2022, Additional history exists Procedures Procedure NamePriorityDate/TimeAssociated DiagnosisCommentsPOCT GLYCOSYLATED HEMOGLOBIN (HGB A1C)Vrsonss8203/06/2025 10:13 AM EST Type 2 diabetes mellitus with hyperglycemia, with long-term current use of insulin (HCC) POCT AYTNBWOSowsqik91/24/2025 10:13 AM EST Type 2 diabetes mellitus with hyperglycemia, with long-term current use of insulin (HCC) COMPREHENSIVE METABOLIC YADOYYKAT62/24/2025 9:07 AM EST CBC WITH AUTO BOOJCUKBWBDWNOLU88/24/2025 9:07 AM EST AEROBIC MEME CHARGE (NMIC56)Ehtcbmq0302/24/2025 12:55 PM EST URINALYSIS VVRQGTZhhdxle31/14/2025 12:55 PM EST CULTURE, URINE, HWWLTFRQevkxkl93/14/2025 12:55 PM EST STOOL PARASITIC APFTZSusbypn41/14/2025 12:00 PM EST CLOSTRIDIUM DIFFICILE GQJNJQrgsirs40/14/2025 12:00 PM EST COMPREHENSIVE METABOLIC AVDWPOYTP71/08/2025 10:43 AM EST CBC WITH AUTO CRFXOIADXBTHLWGB43/08/2025 10:43 AM EST COMPREHENSIVE METABOLIC CBJXPMTHW55/03/2025 10:24 AM EST CBC WITH AUTO VMWEPIXSFEROFXPR19/03/2025 10:24 AM EST IMMUNOFIXATION,SERUM ([facility])Djoucyd9302/06/2025 10:35 AM EDT PROTEIN ELECTRO, RANDOM APZBQCknwdnt08/27/2025 10:35 AM EDT FREE K+L LT CHAINS, QN, NUccqwck84/27/2025 10:35 AM EDT PROTEIN ELECTROPHORESIS, GSEBRIfgpzll94/27/2025 10:35 AM EDT LACTATE FKBMNGVSFXLKAMvwqrcw20/27/2025 10:35 AM EDT COMPREHENSIVE METABOLIC ASURYBbbndif91/27/2025 10:35 AM EDT CBC WITH AUTO ZWPPPOMZXPXLUnyazid98/27/2025 10:35 AM EDT SCAN AND UCBDbcmgfl50/07/2025 2:15 PM EDT COMPREHENSIVE METABOLIC HWRJUEdkvosx72/07/2025 2:15 PM EDT DIFF AND BHYBYPO1512/26/2024 10:05 AM EDT COMPREHENSIVE METABOLIC SPSTBRZYD27/15/2025 10:05 AM EDT XR CHEST 2 VIEWS12/21/2024 4:14 PM EDT URINALYSIS, MANUAL YNDMTSYA57/10/2025 10:30 AM EDT CULTURE, FEIMACGWL01/10/2025 9:30 AM EDT CULTURE, SUNTDAXRT86/10/2025 9:20 AM EDT COMPREHENSIVE METABOLIC KYJLDIOAT11/08/2025 9:33 AM EDT CBC WITH AUTO UKKEDUYICASJYSGY91/08/2025 9:33 AM EDT from Last 3 Months Results * POCT glycosylated hemoglobin (Hb A1C) docked device (03/06/2025 10:13 AM EST) ComponentValueRef RangeTest MethodAnalysis TimePerformed AtPathologist SignatureHemoglobin A1C10.3Specimen (Source)Anatomical Location / Laterality Collection Method / VolumeCollection TimeReceived TimeBloodVenous blood specimen / Jspppkk2903/06/2025 10:13 AM EST Narrative Authorizing ProviderResult TypeResult StatusAhamelia Aguilar [facility] TEST ENTER/EDIT ORDERABLESFinal Result * POCT glucose manually resulted (03/06/2025 10:13 AM EST)ComponentValueRef RangeTest MethodAnalysis TimePerformed AtPathologist SignatureGlucose Blood, AGS857wu/dLSpecimen (Source)Anatomical Location / LateralityCollection Method / VolumeCollection TimeReceived TimeBloodCapillary blood specimen / Unknown 03/06/2025 10:13 AM EST Narrative Authorizing ProviderResult TypeResult StatusJeannie Aguilar [facility] TEST ENTER/EDIT ORDERABLESFinal Result * (ABNORMAL) CBC auto differential (03/06/2025 9:07 AM EST) Only the most recent of5 resultswithin the time period is included. ComponentValueRef RangeTest MethodAnalysis TimePerformed AtPathologist Signature WBC11.03.8 - 11.6 [CFU]/mL03/06/2025 9:58 AM [facility] UNCORRECTED WHITE BLOOD COUNT11.03.8 - 11.6 10*3/uL03/06/2025 9:58 AM [facility] CtrRBC3.993.60 - 5.00 10*6/uL03/06/2025 9:58 AM [facility] SlqVAKIUGSUDM05.811.8 - 15.4 g/dL03/06/2025 9:58 AM [facility] QbuXOYXITPPFP04.234.0 - 46.4 %03/06/2025 9:58 AM [facility] YdiCHW18.680 - 100 fL03/06/2025 9:58 AM [facility] LwiBQT77.524.7 - 34.3 pg03/06/2025 9:58 AM [facility] IwoECFM69.532.0 - 35.0 g/dL03/06/2025 9:58 AM [facility] CtrRED CELL DISTRIBUTION WIDTH, RDW16.1(H)11.9 - 15.3 %03/06/2025 9:58 AM [facility] CtrPLATELET ITINM425551 - 450 10*3/uL03/06/2025 9:58 AM [facility] CtrMEAN PLATELET VOLUME, MPV7.96.3 - 10.7 fL03/06/2025 9:58 AM [facility] NEUTROPHILS, %71.6. %03/06/2025 9:58 AM [facility] LYMPHOCYTES, %20.2. %03/06/2025 9:58 AM [facility] MONOCYTE/MACROPHAGE, %5.9. %03/06/2025 9:58 AM [facility] EOSINOPHILS, %1.2. %03/06/2025 9:58 AM [facility] BASOPHILS, %1.1. %03/06/2025 9:58 AM [facility] CtrNRBC0.20 - 0.5 /100{WBC}03/06/2025 9:58 AM [facility] CtrNEUTROPHILS7.9 (H)1.8 - 7.7 10*3/uL03/06/2025 9:58 AM [facility] LYMPHOCYTES2.21.00 - 4.8 10*3/uL03/06/2025 9:58 AM [facility] CtrMONOCYTES0.60.0 - 0.8 10*3/uL03/06/2025 9:58 AM [facility] CtrEOSINOPHILS0.10.0 - 0.45 10*3/uL03/06/2025 9:58 AM [facility] CtrBASOPHILS0.10.0 - 0.2 10*3/uL03/06/2025 9:58 AM [facility] CtrSpecimen (Source)Anatomical Location / LateralityCollection Method / VolumeCollection TimeReceived TimeBlood (Blood)03/06/2025 9:07 AM EST 03/06/2025 9:07 AM EST Narrative Authorizing ProviderResult TypeResult StatusRoxane Bills MDLAB BLOOD ORDERABLES Final ResultPerforming OrganizationAddressCity/State/ZIP CodePhone Number [facility] [address] [place] [address], [facility] [place] [address] [place] [address] * (ABNORMAL) Comprehensive metabolic panel (03/06/2025 9:07 AM EST) Only the most recent of7 resultswithin the time period is included. ComponentValueRef RangeTest MethodAnalysis TimePerformed AtPathologist Signature Fpqxhdu06(L)70 - 100 mg/dL03/06/2025 10:20 AM [facility] Comment: Random Glucose Reference Range is dependent on time and content of last meal. Glucose of more than 200 mg/dL in a nonstressed, ambulatory subject supports the diagnosis of Diabetes Mellitus. ADA recommended reference range IJB265 - 25 mg/dL03/06/2025 10:20 AM [facility] CtrCREATININE 1.140.60 - 1.20 mg/dL03/06/2025 10:20 AM [facility] ESTIMATED GFR53.03091 10:20 AM [facility] CtrSodium 146(H)136 - 145 mmol/L105/06/2024 10:20 AM [facility] Potassium, Bld3.93.5 - 5.1 mmol/L105/06/2024 10:20 AM [facility] HqkEhdafblz34352 - 107 mmol/L105/06/2024 10:20 AM [facility] CtrCarbon Tklyhfb89.9(H)21.0 - 31.0 mmol/L105/06/2024 10:20 AM [facility] CtrAnion Gap10.06.0 - 15.011 10:20 AM [facility] CtrCalcium8.0(L)8.6 - 10.3 mg/dL03/06/2025 10:20 AM [facility] CtrTOTAL PROTEIN6.2(L)6.4 - 8.9 g/dL03/06/2025 10:20 AM [facility] CtrALBUMIN LEVEL3.63.5 - 5.7 g/dL 03/06/2025 10:20 AM [facility] CtrGLOBULIN2.6g/dL03/06/2025 10:20 AM [facility] CtrALBUMIN/GLOBULIN RATIO1.411 10:20 AM [facility] CtrBILIRUBIN,TOTAL0.30.3 - 1.0 mg/dL 03/06/2025 10:20 AM [facility] CtrASPARTATE AMINO TRANSFERASE 3113 - 39 U/L105/06/2024 10:20 AM [facility] CtrALANINE DHERYWILMXPKBEXY92(H)7 - 52 U/L105/06/2024 10:20 AM [facility] CtrALKALINE VFCLNSHSKVS340(H)34 - 104 U/L105/06/2024 10:20 AM [facility] CtrCREATININE CLR CALC ZFZZCDRX40.50105/06/2024 10:20 AM [facility] CtrSpecimen (Source)Anatomical Location / Laterality Collection Method / VolumeCollection TimeReceived TimeOtherTopography unknown / Eunkdvz7603/06/2025 9:07 AM EST03/06/2025 9:07 AM EST Narrative Authorizing ProviderResult TypeResult StatusRoxane GARCIA BLOOD ORDERABLES Final ResultPerforming OrganizationAddressCity/State/ZIP CodePhone Number [facility] [address] [place] [address], [facility] [address] [place] [address] * (ABNORMAL) AEROBIC MEME CHARGE (NMIC56) (02/24/2025 12:55 PM EST)ComponentValue Ref RangeTest MethodAnalysis TimePerformed AtPathologist SignatureAMIKACIN<16 (S)02/26/2025 8:31 AM [facility] CtrAZTREONAM<4(I) 02/26/2025 8:31 AM [facility] CtrCEFEPIME<2(S)02/26/2025 8:31 AM [facility] CtrCEFTAZIDIME<1(I)02/26/2025 8:31 AM [facility] CtrCEFTAZIDIME/AVIBACTAM<4(S)02/26/2025 8:31 AM [facility] CtrCEFTRIAXONE<1(I)02/26/2025 8:31 AM [facility] CtrCEFUROXIME<4(I)02/26/2025 8:31 AM [facility] CtrCIPROFLOXACIN<0.25(S)02/26/2025 8:31 AM [facility] CtrERTAPENEM<0.5(S)02/26/2025 8:31 AM [facility] CtrGENTAMICIN<2(S)02/26/2025 8:31 AM [facility] LEVOFLOXACIN<0.5(S)02/26/2025 8:31 AM [facility] MEROPENEM<1(S)02/26/2025 8:31 AM [facility] MEROPENEM/VABORBACTAM<2(S)02/26/2025 8:31 AM [facility] VAVZUQCKHBYBFO00(I)02/26/2025 8:31 AM [facility] PIPERACILLIN/TAZOBACTAM<8(I)02/26/2025 8:31 AM [facility] CtrTETRACYCLINE<4(S)02/26/2025 8:31 AM [facility] TIGECYCLINE<2(S)02/26/2025 8:31 AM [facility] CtrTOBRAMYCIN <2(S)02/26/2025 8:31 AM [facility] TRIMETHOPRIM/SULFAMETHOXAZOLE<0.5/9.5(S)02/26/2025 8:31 AM [facility] CtrSpecimen (Source)Anatomical Location / Laterality Collection Method / VolumeCollection TimeReceived TimeUrineUrine specimen obtained by clean catch procedure / Ejalzkx2302/24/2025 12:55 PM EST02/24/2025 12:55 PM ESTComment:Clean-Voided Midstream Narrative Authorizing ProviderResult TypeResult StatusRoxane Bills [facility]PITALFinal Result Performing OrganizationAddressCity/State/[facility] CodePhone Number [facility] [address] [place] [id number], [facility] [address] [place] [address] * (ABNORMAL) Urinalysis with reflex microscopic (02/24/2025 12:55 PM EST) ComponentValueRef RangeTest MethodAnalysis TimePerformed AtPathologist SignatureCOLOR,URINELight-VtdoteSwdgcv89/14/2025 1:26 PM [facility] CtrAPPEARANCE,URINECloudy(AA)Clear02/24/2025 1:26 PM [facility] CtrSPECIFICY GRAVITY,URINE1.0111.001 - 1.0043802/24/2025 1:26 PM [facility] CtrPH,URINE6.05.0 - 9. 1:26 PM [facility] CtrLEUKOCYTE ESTERASE,URINE4+Blaxljhd82/14/2025 1:26 PM [facility] CtrNITRITE,URINEPositiveNegative 02/24/2025 1:26 PM [facility] CtrPROTEIN,URINENegative Negative mg/dL02/24/2025 1:26 PM [facility] GLUCOSE,URINE (UA)>=1,000Normal mg/dL02/24/2025 1:26 PM [facility] CtrKETONES,VXSZYIrbddfdhOjmfmxpe71/14/2025 1:26 PM [facility] CtrUROBILINOGEN,URINENormalNormal mg/dL02/24/2025 1:26 PM [facility] CtrBILIRUBIN,EZXJPFbchwupgUuyjibvg52/14/2025 1:26 PM [facility] CtrOCCULT BLOOD,URINENegativeNegative 02/24/2025 1:26 PM [facility] CtrRBC,URINE3-40 - 4 [HPF] 02/24/2025 1:31 PM [facility] CtrWBC,URINEInnumerable0 - 4 [HPF]02/24/2025 1:31 PM [facility] CtrWBC CLUMP, URINEMany None Seen [LPF]02/24/2025 1:31 PM [facility] CtrSQUAMOUS EPITHELIAL CELL,URINE1-20 - 2 [HPF]02/24/2025 1:31 PM [facility] CtrBACTERIA,URINERareNone Seen [HPF]02/24/2025 1:31 PM [facility] CtrHYALINE CASTS,URINENone0 - 8 [LPF]02/24/2025 1:31 PM [facility] CtrMUCUS,URINERare[LPF]02/24/2025 1:31 PM [facility] CtrSpecimen (Source)Anatomical Location / LateralityCollection Method / VolumeCollection TimeReceived TimeOther 02/24/2025 12:55 PM [facility]02/24/2025 12:55 PM [facility] - 02/24/2025 1:31 PM EST Name Collection Type:: Clean-Voided Midstream Authorizing ProviderResult TypeResult StatusAmy M Sanju MDLAB URINE ORDERABLES Final ResultPerforming OrganizationAddressCity/State/[facility] CodePhone Number [address] [address], [facility] [address] [place] [address] * Urine culture (02/24/2025 12:55 PM EST)ComponentValueRef RangeTest Method Analysis TimePerformed AtPathologist SignatureFRMC ORGANISMKlebsiella udoajjyoh92/16/2025 8:31 AM [facility] CtrCOLONY COUNT >100,3291004/28/2024 8:31 AM [facility] CtrSpecimen (Source) Anatomical Location / LateralityCollection Method / VolumeCollection Time Received TimeUrineUrine specimen obtained by clean catch procedure / Unknown 02/24/2025 12:55 PM EST02/24/2025 12:55 PM ESTComment:Clean-Voided Midstream Narrative Authorizing ProviderResult TypeResult StatusRoxane GARCIA MICROBIOLOGY - GENERAL ORDERABLESFinal ResultPerforming OrganizationAddressCity/State/ZIP Code Phone Number [address] [address], [facility] [address] [place] [address] * STOOL PARASITIC PANEL (02/24/2025 12:00 PM EST)ComponentValueRef RangeTest MethodAnalysis TimePerformed AtPathologist SignatureGIARDIA LAMBLIANegative Smidlffb35/14/2025 5:12 PM [facility] CtrCRYPTOSPORIDIUM (C.HOMINIS+YLMVbjouvmqNgqmdpdb32/14/2025 5:12 PM [facility] CtrComment:Cryptosporidium test includes C. hominis and C. parvum.ENTAMOEBA YRTJHCMZTDXJzvlvgrfBveczgby62/14/2025 5:12 PM [facility] CtrComment: Testing performed by RT-PCR Specimen (Source)Anatomical Location / LateralityCollection Method / Volume Collection TimeReceived TimeStool (Stool)02/24/2025 12:00 PM EST02/24/2025 1:09 PM EST Narrative Authorizing ProviderResult TypeResult StatusRoxane GARCIA BODY FLUIDS AND STOOLS ORDERABLESFinal ResultPerforming OrganizationAddressty/State/ZIP Code Phone Number [facility] [address] [place] [address], [facility] [address] [place] [address] * Clostridium difficile toxin (02/24/2025 12:00 PM EST)ComponentValueRef Range Test MethodAnalysis TimePerformed AtPathologist SignatureCLOSTRIDIUM DIFFICILE BebxzcalUfhrepwt37/14/2025 3:39 PM [facility]trComment: Testing performed by RT-PCR Specimen (Source)Anatomical Location / LateralityCollection Method / Volume Collection TimeReceived TimeStool (Stool)02/24/2025 12:00 PM EST02/24/2025 1:09 PM EST Narrative Authorizing ProviderResult TypeResult StatusRoxane Bills MDLAB MICROBIOLOGY - GENERAL ORDERABLESFinal ResultPerforming OrganizationAddressCity/State/ZIP Code Phone Number [facility] [address] [place] [address], [facility] [address] [place] [address] * PROTEIN ELECTRO, RANDOM URINE (02/06/2025 10:35 AM EDT)ComponentValueRef Range Test MethodAnalysis TimePerformed AtPathologist SignaturePROTEIN, TOTAL, URINE 9.9Not Estab. mg/dL02/08/2025 3:09 PM EDTFIRELANDSALBUMIN, URINE30.9. % 02/08/2025 3:09 PM MFPYISSZOBYWCOVVS-0-KLEHMPEM, URINE2.8. %02/08/2025 3:09 PM XLEGUOOZKZQPJOFLP-3-RAACBODF, URINE11.3. %02/08/2025 3:09 PM EDTFIRELANDSBETA GLOBULIN, URINE33.8. %02/08/2025 3:09 PM EDTFIRELANDSGAMMA GLOBULIN, URINE 21.1. %02/08/2025 3:09 PM EDTFIRELANDSM-SPIKE %Not ObservedNot Observed % 02/08/2025 3:09 PM EDTFIRELANDSPLEASE NOTE:Comment.02/08/2025 3:09 PM EDT FIRELANDSComment: Protein electrophoresis scan will follow via computer, mail, or vessel scrapper delivery. Performed at: ?? - [facility], [place], [place] ??[id number] [employer]: Jhoan Rich PhD, Phone: ??[phone] Specimen (Source)Anatomical Location / LateralityCollection Method / Volume Collection TimeReceived DbhbKuevt42/27/2025 10:35 AM EDT1 10:35 AM EDT Narrative Authorizing ProviderResult TypeResult StatusRoxane Rojo Sanju [facility] BLOOD ORDERABLES Final ResultPerforming OrganizationAddressty/State/ZIP CodePhone Number [facility] [address] [place] [address], * FREE K+L LT CHAINS, QN, S (02/06/2025 10:35 AM EDT)ComponentValueRef RangeTest MethodAnalysis TimePerformed AtPathologist SignatureFREE KAPPA LIGHT CHAINS, S36.13.3 - 19.4 mg/L1 4:09 PM EDTFIRELANDSFREE LAMBDA LIGHT CHAINS, S 16.25.7 - 26.3 mg/L1 4:09 PM EDTFIRELANDSKAPPA/LAMBDA RATIO, S2.23 0.26 - 1.6502/07/2025 4:09 PM EDTFIRELANDSComment: Performed at: ??CB - [facility] [address] ??[id number] [employer]: Jhoan Rich PhD, Phone: ??[phone] Specimen (Source)Anatomical Location / LateralityCollection Method / Volume Collection TimeReceived TimeOtherTopography unknown / Uccjoyo6202/06/2025 10:35 AM EDT1 10:35 AM EDT Narrative Authorizing ProviderResult TypeResult StatusRoxane Alia Sanju [facility] BLOOD ORDERABLES Final ResultPerforming OrganizationAddDanville State Hospitalty/State/ZIP CodePhone Number [address] [place] [address], * (ABNORMAL) IMMUNOFIXATION,SERUM ([facility]) (02/06/2025 10:35 AM EDT)ComponentValue Ref RangeTest MethodAnalysis [...] ??can be removed by ordering test number [id number]- Immunofixation, ??Daratumumab-Specific, Serum or [id number]- Immunofixation, ??Isatuximab-Specific, Serum and submitting a new sample for ??testing or by calling the lab to add this test to the current ??sample. IMMUNOGLOBULIN [id number] - 1,602 mg/dL02/08/2025 3:09 PM EDTFIRELANDS IMMUNOGLOBULIN A, OEXTC97128 - 352 mg/dL02/08/2025 3:09 PM EDTFIRELANDS IMMUNOGLOBULIN M, BPKBM8985 - 217 mg/dL02/08/2025 3:09 PM EDTFIRELANDSComment: Performed at: ?? - [facility] [address] ??[id number] [employer]: Jhoan Rich PhD, Phone: ??[phone] Specimen (Source)Anatomical Location / LateralityCollection Method / Volume Collection TimeReceived TimeOtherTopography unknown / Mxagyxa8802/06/2025 10:35 AM EDT1 10:35 AM EDT Narrative Authorizing ProviderResult TypeResult StatusRoxane GARCIA BLOOD ORDERABLES Final ResultPerforming OrganizationAddressCity/State/ZIP CodePhone Number [facility] [address] [place] [address], * Protein electrophoresis, serum (02/06/2025 10:35 AM EDT)ComponentValueRef RangeTest MethodAnalysis TimePerformed AtPathologist SignatureTOTAL PROTEIN, SERUM6.06.0 - 8.5 g/dL02/07/2025 2:08 PM EDTFIRELANDSALBUMIN, SERUM3.12.9 - 4.4 g/dL02/07/2025 2:08 PM ADQTEXYIGHYTUZKNV-0-KLEPOMHC8.20.0 - 0.4 g/dL 02/07/2025 2:08 PM KQKQGWBZORPVIVWPL-3-YIHLOVZR2.90.4 - 1.0 g/dL02/07/2025 2:08 PM EDTFIRELANDSBETA GLOBULIN1.10.7 [...] scan will follow via computer, mail, or vessel scrapper delivery. Performed at: ?? - [facility] ??[id number] [employer]: Jhoan Rich PhD, Phone: ??[phone] Specimen (Source)Anatomical Location / LateralityCollection Method / Volume Collection TimeReceived TimeOtherTopography unknown / Qtcottr7502/06/2025 10:35 AM EDT1 10:35 AM EDT Narrative Authorizing ProviderResult TypeResult StatusRoxane GARCIA BLOOD ORDERABLES Final ResultPerforming OrganizationAddressty/[facility] CodePhone Number [address] * Lactate dehydrogenase (02/06/2025 10:35 AM EDT)ComponentValueRef RangeTest MethodAnalysis TimePerformed AtPathologist SignatureLDH LACTATE DEHYDROGENASE 490859 - 271 U/L1 1:00 PM [facility] CtrSpecimen (Source)Anatomical Location / LateralityCollection Method / VolumeCollection TimeReceived TimeOtherTopography unknown / Inzgvku4502/06/2025 10:35 AM EDT 02/06/2025 10:35 AM EDT Narrative Authorizing ProviderResult TypeResult StatusRoxane GARCIA BLOOD ORDERABLES Final ResultPerforming OrganizationAddressty/State/ZIP CodePhone Number [address] [place] [address], [facility] [address] [place] [address] * (ABNORMAL) SCAN AND CBC (01/17/2025 2:15 PM EDT)ComponentValueRef RangeTest MethodAnalysis TimePerformed AtPathologist SignatureWBC3.4(L)3.8 - 11.6 [CFU]/mL01/17/2025 3:19 PM [facility] CtrUNCORRECTED WHITE BLOOD COUNT3.4(L)3.8 - 11.6 10*3/uL01/17/2025 3:19 PM [facility] CtrRBC3.10(L)3.60 - 5.00 10*6/uL01/17/2025 3:19 PM [facility] CtrHEMOGLOBIN9.6(L)11.8 - 15.4 g/dL01/17/2025 3:19 PM EDT [facility] RtvYQQFIRJQXP21.8(L)34.0 - 46.4 %01/17/2025 3:19 PM [facility] SejEOA32.880 - 100 fL01/17/2025 3:19 PM EDT [facility] SfjBUL65.024.7 - 34.3 pg01/17/2025 3:19 PM EDT [facility] YjdKWXZ21.432.0 - 35.0 g/dL01/17/2025 3:19 PM EDT [facility] CtrRED CELL DISTRIBUTION WIDTH, RDW23.3(H)11.9 - 15.3 %01/17/2025 3:19 PM [facility] CtrPLATELET COUNT58(L) 150 - 450 10*3/uL01/17/2025 3:19 PM [facility] CtrMEAN PLATELET VOLUME, MPV8.76.3 - 10.7 fL01/17/2025 3:19 PM [facility] CtrNEUTROPHILS, %33.1. %01/17/2025 3:59 PM [facility] CtrLYMPHOCYTES, %57.0. %01/17/2025 3:59 PM [facility] CtrMONOCYTE/MACROPHAGE, %9.0. %01/17/2025 3:59 PM [facility] CtrEOSINOPHILS, %0.9. %01/17/2025 3:59 PM [facility] CtrBASOPHILS, %0.0. %01/17/2025 3:59 PM [facility] CtrNRBC0.10 - 0.5 /100{WBC}01/17/2025 3:59 PM [facility] CtrNEUTROPHILS1.1(L)1.8 - 7.7 10*3/uL01/17/2025 3:59 PM [facility] CtrLYMPHOCYTES2.01.00 - 4.8 10*3/uL01/17/2025 3:59 PM EDT [facility] CtrMONOCYTES0.30.0 - 0.8 10*3/uL01/17/2025 3:59 PM [facility] CtrEOSINOPHILS0.00.0 - 0.45 10*3/uL01/17/2025 3:59 PM [facility] CtrBASOPHILS0.00.0 - 0.2 10*3/uL 01/17/2025 3:59 PM [facility] CtrPOLYCHROMASIASlight 01/17/2025 3:59 PM [facility] CtrPOIKILOCYTOSISModerate 01/17/2025 3:59 PM [facility] CtrANISOCYTOSISMarked 01/17/2025 3:59 PM [facility] CtrTEAR DROP CELLSSlight 01/17/2025 3:59 PM [facility] JbmPZOKQWMKZWAyvgbr90/07/2025 3:59 PM [facility] CtrPLATELET ESTIMATEDecreasedNormal 01/17/2025 3:59 PM [facility] CtrPLATELET MORPHOLOGYNormal Ojvrxo1801/17/2025 3:59 PM [facility] CtrSpecimen (Source) Anatomical Location / LateralityCollection Method / VolumeCollection Time Received TimeBlood (Blood)01/17/2025 2:15 PM EDT1 2:15 PM EDT Narrative Authorizing ProviderResult TypeResult StatusRoxane Bills MDLAB BLOOD ORDERABLES Final ResultPerforming OrganizationAddressCity/State/ZIP CodePhone Number [facility] [address] [place] [address], [facility] [address] [place] [address] * (ABNORMAL) DIFF AND CBC (12/26/2024 10:05 AM EDT)ComponentValueRef RangeTest MethodAnalysis TimePerformed AtPathologist SignatureWBC2.8(L)3.8 - 11.6 [CFU]/mL12/26/2024 10:55 AM [facility] CtrUNCORRECTED WHITE BLOOD COUNT2.8(L)3.8 - 11.6 10*3/uL12/26/2024 10:55 AM [facility] CtrRBC4.163.60 - 5.00 10*6/uL12/26/2024 10:55 AM [facility] GirBWXRYRIBKZ16.011.8 - 15.4 g/dL12/26/2024 10:55 AM [facility] BhfCYUZYENCVY76.034.0 - 46.4 %12/26/2024 10:55 [facility] AxxGIR90.080 - 100 fL12/26/2024 10:55 AM [facility] AqfAPF93.924.7 - 34.3 pg12/26/2024 10:55 AM [facility] OquKTXS18.432.0 - 35.0 g/dL12/26/2024 10:55 AM [facility] CtrRED CELL DISTRIBUTION WIDTH, RDW15.311.9 - 15.3 %12/26/2024 10:55 AM [facility] CtrPLATELET COUNT4(LL)150 - 450 10*3/uL12/26/2024 11:26 AM [facility] CtrComment: Critical value result called at 1126 on 12/26/24 MEAN PLATELET VOLUME, MPV12.0(H)6.3 - 10.7 fL12/26/2024 10:55 AM [facility] CtrSEGMENTED EJEURECWPXQ57(L)50 - 70 %12/26/2024 11:36 AM EDT [facility] CtrBAND QAMIIBOUNXM36 - 5 %12/26/2024 11:36 AM EDT [facility] SwlTBWXFGYHBHD8499 - 42 %12/26/2024 11:36 AM EDT [facility] CtrREACTIVE NUQOVKDVEEG34 - 12 %12/26/2024 11:36 AM [facility] BliDGYURPPQR70 - 11 %12/26/2024 11:36 AM EDT [facility] EltHMYZCTTCZOC14(H)1 - 3 %12/26/2024 11:36 AM EDT [facility] CtrRBC XMVPCRPLUURmljueHvafog11/15/2025 11:36 AM EDT [facility] CtrPLATELET VDMZMTOBTuqrqvcoeJpezio43/15/2025 11:36 AM [facility] CtrPLATELET CUUFJIXHBLZzpoacTenfyk56/15/2025 11:36 AM [facility] CtrSpecimen (Source)Anatomical Location / LateralityCollection Method / VolumeCollection TimeReceived TimeBlood (Blood) 12/26/2024 10:05 AM EDT12/26/2024 10:05 AM EDT Narrative Authorizing ProviderResult TypeResult StatusRoxane Bills MDLAB BLOOD ORDERABLES Final ResultPerforming OrganizationAddressCity/State/[facility] CodePhone Number [facility] [address] [place] [phone], [facility] [address] [place] [phone] * XR chest 2 views (12/21/2024 4:14 PM EDT)Anatomical RegionLateralityModality ChestRadiographic ImagingSpecimen (Source)Anatomical Location / Laterality Collection Method / VolumeCollection TimeReceived Time12/21/2024 4:14 PM EDT Impressions 12/21/2024 4:17 PM EDT SCATTERED AREAS OF LUNG SCARRING. ??NO CONSOLIDATION TO SUGGEST PNEUMONIA. ? Impression dictated by: Manish Mccurdy Jr., D.O. ??12/21/2024 4:15 PM ? Dictation Location: RADIO-PC-22 ? Transcribed By: ? PWS ?12/21/24 1615 ? Dictated By: ?Manish Mccurdy Jr, DO ?12/21/24 1614 ? Signed By: <Electronically signed by Manish Mccurdy Jr, DO in OV> ?12/21/24 1615 Narrative 12/21/2024 4:17 PM EDT [facility] ?[facility] [place] ?[address] ? [place] [address] ?XRay Report ? Signed ? Patient: Montour,Kelsea M ?MR#: [id number] ?? 58 ? : 1960 ?Acct:[id number] ? Age/Sex: 64 / F ?ADM Date: [...] Note Manish Mccurdy Jr., DO - 12/21/[address] [facility] [place] [address] [place] [address] XRay Report Signed Patient: Kelsea Turcios MMR#: [id number] 58 : 9Acct:[id number] Age/Sex: 64 / FADM Date: 12/21/24 Loc: Room:Type: [facility] Attending Dr: Roxane Bills MD Copies [...] Jr., D.OJane 12/21/2024 4:15 PM Dictation Location: [place] [address] Transcribed By: [facility] 12/21/24 1615 Dictated By: Manish Mccurdy Jr, DO 12/21/24 1614 Signed By: <Electronically signed by Manish Mccurdy Jr, DO inOV> 12/21/24 1615 Authorizing ProviderResult TypeResult StatusRoxane Bills MDIMG XR PROCEDURESFinal Result * Urinalysis, manual only (12/21/2024 10:30 AM EDT)ComponentValueRef RangeTest MethodAnalysis TimePerformed AtPathologist SignatureCOLOR,URINELight-Yellow Dgxztt1312/21/2024 10:57 AM [facility] CtrAPPEARANCE,URINE DzbdaFtvfj86/10/2025 10:57 AM [facility] CtrSPECIFICY GRAVITY,URINE1.0101.001 - 1.1981712/21/2024 10:57 AM [facility] CtrPH,URINE5.55.0 - 9.009 10:57 AM [facility] CtrLEUKOCYTE ESTERASE,LBDNGVdqvmjohEsdqseer76/10/2025 10:57 AM EDT [facility] CtrNITRITE,CTNVASxqcwnaaEizunslw60/10/2025 10:57 AM [facility] CtrPROTEIN,URINENegativeNegative mg/dL 12/21/2024 10:57 AM [facility] CtrGLUCOSE,URINE (UA)>=1,000 Normal mg/dL12/21/2024 10:57 AM [facility] CtrKETONES,URINE EuwohmatAvlokjwi63/10/2025 10:57 AM [facility] Ctr UROBILINOGEN,URINENormalNormal mg/dL12/21/2024 10:57 AM [facility] CtrBILIRUBIN,BVSEGQscezkekZywzntxf16/10/2025 10:57 AM [facility] CtrOCCULT BLOOD,IKBCWFpmxroztQmpuqeaa50/10/2025 10:57 AM EDT [facility] CtrSpecimen (Source)Anatomical Location / LateralityCollection Method / VolumeCollection TimeReceived TimeOther 12/21/2024 10:30 AM EDT12/21/2024 10:32 AM EDT Narrative [facility] - 12/21/2024 10:57 AM EDT Name Collection Type:: Clean-Voided Midstream Authorizing ProviderResult TypeResult StatusRoxane Bills MDLAB URINE ORDERABLES Final ResultPerforming OrganizationAddressCity/State/ZIP CodePhone Number [facility] [address] [place] [address], [facility] [address] [place] [address] * Blood culture (12/21/2024 9:30 AM EDT) Only the most recent of2 resultswithin the time period is included. ComponentValueRef RangeTest MethodAnalysis TimePerformed AtPathologist Signature [facility] NOTENO GROWTH 5 DAYS12/26/2024 9:36 AM [facility] Specimen (Source)Anatomical Location / LateralityCollection Method / Volume Collection TimeReceived TimeBlood (Blood)12/21/2024 9:30 AM EDT12/21/2024 9:36 AM EDTComment:Left Wrist Narrative Authorizing ProviderResult TypeResult StatusRoxane Bills MDLAB MICROBIOLOGY - GENERAL ORDERABLESFinal ResultPerforming OrganizationAddressCity/State/ZIP Code Phone Number [facility] [address] [facility] [place] [address], [facility] [address] [facility] [place] [address] from Last 3 Months Insurance Care Teams Team MemberRelationshipSpecialtyStart DateEnd Date Giovanni Moreno MD [address] [facility] [address] PCP - GeneralFamily Medicine09/18/22
--- OUTSIDE RECORDS SUMMARY | 2025-03-16 09:34 | XMS_ITS | Encounter Summary ---
Author Organization [facility] Address [address] [place] [address] Care Team Providers Care Masonry Inspector Name Role Phone Giovanni Moreno MD Primary Care Provider Encounter Details DateTypeDepartmentCare Team (Latest Contact Info)Ijgyxaedxom96/24/2025External Result Encounter [facility] External Department Unsolicited Roxane Bills MD [address] [place] [address] Social History Tobacco UseTypesPacks/DayYears UsedDateSmoking Tobacco: NeverPassive Smoke Exposure: NeverSmokeless Tobacco: NeverAlcohol UseStandard Drinks/WeekComments Never0 (1 standard drink = 0.6 oz pure alcohol)Caffeine intake: 2-3 cups per day CommentsUnknownSex and Gender InformationValueDate RecordedSex Assigned at BirthNot on fileLegal StsZibyfc97/15/2023 7:13 PM EDTGender IdentityNot on fileSexual OrientationNot on filedocumented as of this encounter Plan of Treatment DateTypeDepartmentCare Team (Latest Contact Info)Wdknjhsxoow15/08/2025 1:50 PM ESTOffice Visit [facility] [address] [place] [phone] Mack Pride DPM [address] [address] 04/18/2025 1:45 PM ESTOffice Visit [facility] [address] [place] [phone] Svetlana Garcia DO [address] [place] [address] 06/07/2025 11:00 AM ESTOffice Visit [facility] [place] [facility] [address] [place] [address] Jeannie Aguilar MD [address] [place] [address] documented as of this encounter Procedures Procedure NamePriorityDate/TimeAssociated DiagnosisCommentsCOMPREHENSIVE METABOLIC DWIWVANBS65/24/2025 9:07 AM EST documented in this encounter Results * (ABNORMAL) Comprehensive metabolic panel (03/06/2025 9:07 AM EST)Component ValueRef RangeTest MethodAnalysis TimePerformed AtPathologist SignatureGlucose 66(L)70 - 100 mg/dL03/06/2025 10:20 AM [facility] Comment: Random Glucose Reference Range is dependent on time and content of last meal. Glucose of more than 200 mg/dL in a nonstressed, ambulatory subject supports the diagnosis of Diabetes Mellitus. ADA recommended reference range UPK296 - 25 mg/dL03/06/2025 10:20 AM [facility] CtrCREATININE 1.140.60 - 1.20 mg/dL03/06/2025 10:20 AM [facility] ESTIMATED GFR53.4547705/06/2024 10:20 AM [facility] CtrSodium 146(H)136 - 145 mmol/L105/06/2024 10:20 AM [facility] Potassium, Bld3.93.5 - 5.1 mmol/L105/06/2024 10:20 AM [facility] TeqGjwyrhaa64935 - 107 mmol/L105/06/2024 10:20 AM [facility] CtrCarbon Lgwsetf70.9(H)21.0 - 31.0 mmol/L105/06/2024 10:20 AM [facility] CtrAnion Gap10.06.0 - 15.011 10:20 AM [facility] CtrCalcium8.0(L)8.6 - 10.3 mg/dL03/06/2025 10:20 AM [facility] CtrTOTAL PROTEIN6.2(L)6.4 - 8.9 g/dL03/06/2025 10:20 AM [facility] CtrALBUMIN LEVEL3.63.5 - 5.7 g/dL 03/06/2025 10:20 AM [facility] CtrGLOBULIN2.6g/dL03/06/2025 10:20 AM [facility] CtrALBUMIN/GLOBULIN RATIO1.411 10:20 AM [facility] CtrBILIRUBIN,TOTAL0.30.3 - 1.0 mg/dL 03/06/2025 10:20 AM [facility] CtrASPARTATE AMINO TRANSFERASE 3113 - 39 U/L105/06/2024 10:20 AM [facility] CtrALANINE YYMLIVNMZJQZYGOV49(H)7 - 52 U/L105/06/2024 10:20 AM [facility] CtrALKALINE TEZPMMFWHNX964(H)34 - 104 U/L105/06/2024 10:20 AM [facility] CtrCREATININE CLR CALC TGAJORMF60.50105/06/2024 10:20 AM [facility] CtrSpecimen (Source)Anatomical Location / Laterality Collection Method / VolumeCollection TimeReceived TimeOtherTopography unknown / Cokjkhs3803/06/2025 9:07 AM EST03/06/2025 9:07 AM EST Narrative Authorizing ProviderResult TypeResult StatusRoxane Bills MDLAB BLOOD ORDERABLES Final ResultPerforming OrganizationAddressCity/State/ZIP CodePhone Number [facility] [address] [place] [address], [facility] [address] [place] [address] documented in this encounter Visit Diagnoses Not on filedocumented in this encounter Care Teams Team MemberRelationshipSpecialtyStart DateEnd Date Giovanni Moreno MD [address] [place] [address] PCP - GeneralFamily Medicine09/18/22documented as of this encounter
--- OUTSIDE RECORDS SUMMARY | 2025-03-16 09:34 | XMS_ITS | Clinical Summary ---
Author Organization [facility] Address [address] [place] [address] Phone Care Team Providers Care Customer Consulting Manager Name Role Phone Unavailable Primary Care Provider Unavailabl e Social History Tobacco UseTypesPacks/DayYears UsedDateSmoking Tobacco: Never Assessed CommentsUnknownSex and Gender InformationValueDate RecordedSex Assigned at Not on fileLegal RahMzlvps23/26/2022 6:30 PM ESTGender IdentityNot on fileSexual OrientationNot on file Plan of Treatment Health MaintenanceDue DateLast DoneCommentsCT Htovauznsbpv15/28/1959Colonoscopy 1958Colorectal Cancer Srteqlbcd20/28/1959FIT-DNA (Cologuard)1958FIT 1958Lipid Panel1958Medicare Annual Wellness Visit (AWV)1960 Trwdoaeslvwnk83/28/1959MMR Vaccines (1 of 1 - Standard series)10/09/1959 Hepatitis C Scxkrbelv82/28/1977DTaP/Tdap/Td Vaccines (1 - Tdap)1980 Vcjafupnw53/28/1999Pneumococcal Vaccine (1 of 1 - PCV)2008Zoster Vaccines [...]
--- OUTSIDE RECORDS SUMMARY | 2025-03-16 09:34 | XMS_ITS | Encounter Summary ---
Author Organization [facility] Address [address] [place] [address] Care Team Providers Care Music Worker Name Role Phone Giovanni Moreno MD Primary Care Provider Encounter Details DateTypeDepartmentCare Team (Latest Contact Info)Osgnddeybto09/24/2025amboo flowsheet [facility] [address] [place] [address] Jeannie Aguilar MD [address] [place] [address] Social History Tobacco UseTypesPacks/DayYears UsedDateSmoking Tobacco: NeverPassive Smoke Exposure: NeverSmokeless Tobacco: NeverAlcohol UseStandard Drinks/WeekComments Never0 (1 standard drink = 0.6 oz pure alcohol)Caffeine intake: 2-3 cups per day CommentsUnknownSex and Gender InformationValueDate RecordedSex Assigned at BirthNot on fileLegal GxzPmlagj99/15/2023 7:13 PM EDTGender IdentityNot on fileSexual OrientationNot on filedocumented as of this encounter Plan of Treatment DateTypeDepartmentCare Team (Latest Contact Info)Rqcaxuhghdr76/08/2025 1:50 PM ESTOffice Visit [facility] [address] [place] [address] Mack Pride DPM [address] [address] 04/18/2025 1:45 PM ESTOffice Visit [facility] [address] [place] [phone] Svetlana Garcia, [address] [place] [address] 06/07/2025 11:00 AM ESTOffice Visit [facility] [place] [facility] [address] [place] [phone] Jeannie Aguilar MD [address] [place] [address] documented as of this encounter Visit Diagnoses Not on filedocumented in this encounter Care Teams Team MemberRelationshipSpecialtyStart DateEnd Date Giovanni Moreno MD [address] [place] [address] PCP - GeneralFamily Medicine09/18/22documented as of this encounter
--- OUTSIDE RECORDS SUMMARY | 2025-03-16 09:43 | XMS_ITS | CCD ---
Author Organization [facility] Care Team Providers Care Retail Sales Merchandiser Development Name Role Phone Giovanni Moreno Unavailable Domenico Whitmore Unavailable Nicko Mckeon Unavailable Adore Barroso Unavailable Josafat Nunes Unavailable DO Giovanni Moreno Primary Care Provider MD Rxoane Bills Attending Provider DO Giovanni Moreno Attending Provider [phone] DO Mohan Groves Referring Provider [phone] DO Peri Tyson Attending Provider [phone] Peri Tyson Unavailable DO Giovanni Moreno Primary Care Provider DO Giovanni Moreno Primary Care Provider [phone] DO Peri Tyson Attending Provider [phone] MD Marcus Cummins Attending Provider [phone] DO Peri Tyson Primary Care Provider DO Svetlana Garcia Referring Provider DO Giovanni Moreno Primary Care Provider DO Peri Tyson Attending Provider MD Roxane Bills Attending Provider [phone] DO Mohan Groves Referring Provider [phone] Tyson, DO Peri A Primary Care Provider Tyson, DO Peri A Attending Provider [phone] MD Roxane Bills Attending Provider DO Mohan Groves Referring Provider Lulú Ruth Unavailable VIJAY ., DR SANAM Melchor Admitting Unavailable VIJAY ., DR SANAM Melchor Attending Unavailable MIS, DR HOUSTON Primary Care Unavailable MACIEL ., JAIME Consulting Unavailable LAKMIREYAMIPATHCarmen ., NARENDRANATH Consulting Lynn vailable VIJAY ., DR SANAM Melchor Admitting Unavailable VIJAY ., DR SANAM Melchor Attending Unavailable MIS, DR HOSUTON Primary Care Unavailable VIJAY ., DR SANAM Melchor Consulting Unavailable MACIEL ., JAIME Consulting Unavailable Tyson, DO Peri A Primary Care Provider Tyson, DO Peri A Attending Provider [phone] MD Solomon Whitmorerey Attending Provider DO Mohan Groves Referring Provider LUCI Galicia Attending Provider MD Jeannie Aguilar Attending Provider [phone] Tyson, DO Peri A Primary Care Provider [phone] NON STAFF Attending Provider Unavailable Tyson, DO Peri A Attending Provider Tyson, DO Peri A Primary Care Provider MD Ang Murphy Attending Provider Unavailable DO Liat Jez A Attending Provider Tyson, DO Peri A Primary Care Provider MD Nik Pineda Attending Provider Patsy Harvey Unavailable MD Roxane Bills Attending Provider [phone] DO Brenden Groves Referring Provider Tyson, [...] Primary Care Provider LUCI Diehl Attending Provider MD Jeff [facility] Attending Provider [phone] Tyson, DO Peri A Primary Care Provider LUCI Diehl Attending Provider Tyson, DO Peri A Primary Care Provider MD Truong Ward Attending Provider Tyson, DO Peri A Attending Provider [phone] MD Roxane Bills Attending Provider DO Brenden Groves Referring Provider Tyson, DO Peri A Primary Care Provider MD Truong Ward Attending Provider AMALIA London Attending Provider MD Roxane Bills Attending Provider DO Brenden Groves Referring Provider Tyson DO, Peri A Primary Care Provider Surya GILMORE-C, Rachana Garcia Attending Provider Truong Ward MD Attending Provider Roxane Bills MD Attending Provider Brenden Groves DO Referring Provider Roxane Bills MD Attending Provider Brenden Groves DO Referring Provider Tyson DO, Peri A Primary Care Provider Truong Ward MD Attending Provider Clayton Josue DOin Luis Attending Provider [phone] Tyson DO, Peri A Primary Care Provider Truong Ward MD Attending Provider Tyson DO, Peri A Attending Provider [phone] Tyson DO, Peri A Attending Provider Roxane [...] Provider Truong Ward MD Attending Provider [phone] Bertha Martinez RN Attending Provider Unavailable Brenden Groves DO Referring Provider Placido BUCIOC, Sugey Garcia Attending Provider Tyson DO, Peri A Primary Care Provider Roxane Bills MD Attending Provider [phone] Brenden Groves DO Referring Provider JEFF, [...] Referring Provider Brenden Groves DO Referring Provider [phone] Chan Santana DO Emergency Provider [phone] Erin Guevara MD Emergency Provider Margarito Rajan MD Admit Provider Margarito Rajan MD Attending Provider [phone] Guillermo Oleary DO Other Provider Margarito Rajan MD Other Provider Louis Ellsworth MD Attending Provider Louis Ellsworth MD Other Provider Tyson DO, Peri A Primary Care Provider Roxane Bills MD Attending Provider Sugey Parr Attending Provider Truong Wadr MD Attending Provider Chan Santana DO Emergency Provider Erin Guevara MD Emergency Provider Satinder PARK, Margarito Admit Provider Satinder PARK, Margarito Other Provider Guillermo Oleary DO Other Provider Louis Ellsworth MD Attending Provider [phone] Louis Ellsworth MD Other Provider Giovanni Moreno MD Primary Care Provider Marbella HECK, Peri A Primary Care Provider Roxane Bills MD Attending Provider Brenden Groves DO Referring Provider Marbella HECK Peri A Attending Provider Marbella HECK Peri A Primary Care Provider Sugey Parr Attending Provider Truong Ward MD Attending Provider Roxane Bills MD Attending Provider Chan Santana DO Emergency Provider [phone] Erin Guevara MD Emergency Provider Satinder PARK, Margarito Admit Provider Margarito Rajan MD Other Provider Guillermo Oleary DO Other Provider Louis Ellsworth MD Attending Provider Louis Ellsworth MD Other Provider Marbella HECK Peri Luis Attending Provider [phone] Brenden Groves DO Referring Provider Brenden Groves DO Referring Provider [phone] SanjuRoxane lund Admitting Unavailable Sanju, Roxane Attending [...] Admitting Unavailable Sanju, Roxane Attending Unavailable Tyson, Prei A Primary Care Unavailable Tyson, Peri A Primary Care Unavailable Tyson, Peri A Attending Unavailable Tyson, Peri A Admitting Unavailable Truong Ward Admitting Unavailab le Truong Ward Attending Unavailab le Tyson, Peri A Primary Care Unavailable Allergies Allergy ClassificationReported Allergen(s)Allergy TypeDate of OnsetReaction(s) Facility (20 sources)CodeineDrug Dzigfiu07-10-3185[facility]ewjdb[facility] ([facility] sources)HoneyPropensity to adverse -82-9481orahimreeuiSelect Medical [facility] (20 sources)MorphineDrug Npzuwcy91-82-1079UbfaKbkjfevezParkview [facility] (1 source)CodeineDrug Ldmskho38-71-0276IluJoint [facility] (1 source)HoneyDrug allergy (disorder)42-83-8678FplJoint [facility] (1 source)MorphineDrug Mkvybjj69-20-6014MnvJoint [facility] (20 sources)traMADolDrug Hxsnjlx19-36-4678MufgtdcspnjlaqMjjrajytnAultman Hospital (1 source)MorphineDrug AllergyUnknoMineral Area Regional Medical Center videof.me Other (1 source)CodeineDrug Gienlnn48-40-7713AukcevugaMadison Health Repository (1 source)HoneyDrug allergy (disorder)86-29-2095VmlrkuoxxMadison Health Repository (1 source)MorphineDrug Qrorpjy71-90-1089VrqzhxlplMadison Health Repository (1 source)traMADolDrug Uachokl95-10-0856VlcuedtqqMadison Health Repository Medications Current Medications MedicationDrug Class(es)DatesSig (Normalized)Sig (Original)acetaminophen 325 mg / HYDROcodone bitartrate 5 mg oral tablet (20 sources)Opioid AgonistStart: 05-89-9317uptr 0.5-1 tablets by mouth once daily as neededNorco 5-325 MG 1/2 to 1 tablet as needed Orally daily for 30 days Oct, ActiveStart: 97-23-7197lafj 0.5-1 tablets by mouth once daily as neededNorco 5-325 MG 1/2 to 1 tablet as needed Orally daily for 30 days Oct, ActiveStart: 32-14-0995gokk 0.5-1 tablets by mouth once daily as needed [place] 5-325 MG 1/2 to 1 tablet as needed Orally daily for 30 days Sep, ActiveStart: 76-08-6132qhoi 0.5-1 tablets by mouth once daily as neededNorco 5- 325 MG 1/2 to 1 tablet as needed Orally daily for 30 days August, Active Start: 90-79-6015asok 1 tablet by mouth twice daily as neededNorco 5-325 MG 1 tablet as needed Orally twice a day for 30 days Jun, ActiveStart: 42-59-8398usly 1 tablet by mouth twice daily as neededNorco 5-325 MG 1 tablet as needed Orally twice a day for 30 days May, ActiveStart: 94-36-8597cgmk 1 tablet by mouth twice daily as neededNorco 5-325 MG 1 tablet as needed Orally twice a day for 30 days Apr, ActiveStart: 75-90-1242sfuk 1 tablet by mouth twice daily as neededNorco 5-325 MG 1 tablet as needed Orally twice a day for 30 days Apr, ActiveStart: 17-07-3666ohez 1 tablet by mouth twice daily as neededNorco 5-325 MG 1 tablet as needed Orally twice a day for 30 days Mar, ActiveStart: 26-02-1919Rkqsd: 79-26-1537SQEGLpjytoh-Acetaminophen 5-325 MG 1 tablet as needed severe pain scale 9-10 Orally BID for 9 days Fill on or after 02/22/2022 Oct, ActiveStart: 12-16-2016 End: 12-66-3604Lzavd: 12-16-2016 End: 39-84-5481wctt 1 tablet by mouth every six hours [...] Zoster Virus Nucleoside Analog DNA Polymerase InhibitorStart: 05-23-0323wzb640983 200 actuat albuterol 0.09 mg/actuat metered dose inhaler (20 sources)beta2-Adrenergic AgonistStart: 07-16-2023 End: 68-66-9712ghnb 2 puff(s) by inhalation in the morning, then take 2 puff(s) by inhalation in the evening, thentake 2 puff(s) by inhalation at bedtime albuterol HFA 90 mcg/act inhaler Indications: Chronic obstructive pulmonary disease, unspecified COPD type (HCC) INHALE 2 PUFFS IN THE MORNING AND 2 PUFFS IN THE EVENING AND 2 PUFFS BEFORE BEDTIME. 18 g 5 08/03/2024 ActiveStart: 15-94-5574ycvz 2 puff(s) by inhalation in the morning, then take 2 puff(s) by inhalation in the evening, thentake 2 puff(s) by inhalation at bedtimealbuterol HFA (Ventolin HFA) 90 mcg/act inhaler Indications: Chronic obstructive pulmonary disease,unspecified COPD type (CMS/HCC) Inhale 2 puffs in the morning and 2 puffs in the evening and 2 puffs before bedtime. 18 g 5 09/23/2022 ActiveStart: 34-93-1776Ybcuf: 60-61-6699xalu 1 puff(s) by inhalation every four hours as needed for wheezingAlbuterol Sulfate (Proair Hfa) 90 mcg/actuation Hfa Aerosol Inhaler Active 1 PUFF INHALATION Q4H asneeded for Wheezing July 29, 2021 12:00am Complies with drug therapyStart: 12-26-2016 End: 86-76-3112Oxoxn: 12-26-2016 End: 58-48-4541fvds 2.5 mg by inhalation every three hours as neededAlbuterol Sulfate 2.5 mg /3 mL (0.083 %) Solution For Nebulization Discontinued 2.5 MG INHALATION Q3H as needed for Shortness Of Breath December 26, 2016 12:00am April 17, 2017 11:07amtake 1 puff(s) by inhalation every four hours as neededalbuterol 0.833 mg/ml / ipratropium bromide 0.167 mg/ml inhalation solution (20 sources)Anticholinergic, beta2-Adrenergic AgonistStart: 09-23-2022 End: 88-51-3627odjblqcbfft-albuterol (Duo-Neb) 0.5-2.5 mg/3 mL nebulizer solution Indications: Chronic obstructivepulmonary disease, unspecified COPD type (HCC) Take 3 mL by nebulization 4 (four) times a day as needed for wheezing or shortness of breath 360 mL 11 01/14/2024 ActiveStart: 08-16-2021 End: 25-18-1658lwht 1 mL by inhalation four times dailyIpratropium-Albuterol 0.5 mg-3 mg(2.5 mg base)/3 mL Solution For Nebulization Discontinued 3 ML INHALATION Four times daily August 16, 2021 12:00am August 16, 2021 10:33amStart: 07-29-2021 End: 94-98-9260Mxuvp: 74-85-4790uztb 1 mL by inhalation every six hours as needed for wheezingIpratropium-Albuterol 0.5 mg-3 mg(2.5 mg base)/3 mL Solution For Nebulization Active 3 ML INHALATION Q6H as needed for Wheezing July 29, 2021 12:00am Complies with drug therapyStart: 81-13-3826bjlt 3 mL by inhalation every six hoursStart: 55-21-6344Cfglc: 12-16-2016 End: 07-32-4355fhHEQBBwoq 10 mg oral tablet (20 sources)Dihydropyridine Calcium Channel BlockerStart: 06-15-2023 End: 25-33-3313Yoyyz: 07-21-2022 End: 13-59-5316Opibn: 01-24-2018 End: 13-82-0635Ynovj: 01-24-2018 End: 54-40-9674mwde 10 mg by mouth once daily in the morningAmlodipine Discontinued 10 MG PO Every morning January 24, 2018 12:00am June 15, 2023 9:10amStart: 12-16-2016 End: 21-21-6626Erthh: 12-16-2016 End: 60-43-3338ossw 1 tablet by mouth at bedtimeAmlodipine 5 mg tablet Discontinued 1 TAB PO Bedtime December 16, 2016 12:00am December 26, 2016 12:19pmamoxicillin 500 mg oral tablet (6 sources)Penicillin-class AntibacterialStart: 34-22-0161ipwq 1 tablet by mouth every eight hoursAsenapine Maleate 5 mg tablet, sublingual (5 sources)Start: 24-34-7601xtoo 1 tablet under the tongue once daily at bedtime Asenapine Maleate 5 mg tablet, sublingual Active 5 MG SUBLINGUAL Daily at bedtime July 01, 2023 12:00amStart: 79-89-7348gxnw 1 tablet under the tongue once daily at bedtimeAsenapine Maleate 5 mg tablet, sublingual Active 5 MG SUBLINGUAL Daily at bedtime June 30, 2023 11:00pmazithromycin 250 mg oral tablet (13 sources)Macrolide AntimicrobialStart: 05-13-2024 End: 98-33-6470mcopcftbtjwn (Zithromax) 250 MG tablet Indications: Chronic obstructive pulmonary disease, unspecified COPD type (CMS/HCC) Take 2 by mouth today then 1 daily for 4 days 6 tablet 05/13/2024 08/25/2024Discontinued (Med list cleanup)BIPAP Machine (20 sources)BIPAP Machine Gderex97 actuat budesonide 0.16 mg/actuat / formoterol fumarate 0.0045 mg/actuat metered dose inhaler (20 sources)Corticosteroid, beta2-Adrenergic AgonistStart: 09-23-2022 End: 25-33-0479noef 2 puff(s) by inhalation in the morningbudesonide-formoterol (Symbicort) 160-4.5 MCG/ACT inhaler Indications: Chronic obstructive pulmonary disease, unspecified COPD type (HCC) Inhale 2 puffs in the morning and 2 puffs before bedtime. Rinse mouth with water after use to reduce aftertaste and incidence of candidiasis. Do not swallow.. 1 each 5 01/14/2024 ActiveStart: 78-51-2839Sdhdp: 45-16-8781wzhc 1 puff(s) by inhalation twice dailyStart: 33-26-5419yvxt 1 puff(s) by inhalation twice dailyBudesonide-Formoterol (Symbicort) 160-4.5 mcg/actuation Hfa Aerosol Inhaler Active 2 PUFF INHALATION Twice daily January 24, 2018 12:00am Complies with drug therapyStart: 78-35-5983giuy 1 puff(s) by inhalation twice dailyBudesonide-Formoterol (Symbicort) 160-4.5 mcg/actuation Hfa Aerosol Inhaler Active 2 PUFF INHALATION Twice daily January 23, 2018 11:00pmStart: 99-15-0014vgmw 1 puff(s) by inhalation twice dailyBudesonide-Formoterol (Symbicort) 160-4.5 mcg/actuation Hfa Aerosol Inhaler Active 2 PUFF INHALATION Twice daily January 24, 2018 12:00amStart: 12-16-2016 End: 79-73-7076Aolxr: 12-16-2016 End: 45-75-6088ccma 1 puff(s) by inhalation twice dailyBudesonide-Formoterol 160-4.5 [...] hydrochloride 5 mg oral tablet (20 sources)Start: 99-07-6592rpzm 1 tablet by mouth once dailybusPIRone (Buspar) 5 MG tablet TAKE 1 TABLET BY ORAL ROUTE 1 TIMES PER DAY IN THE AFTERNOON 08/08/2024 Activecalcium carbonate 1500 mg oral tablet (9 sources)Start: 39-84-5138hfcutfojjidvelnzayllsm sodium 5 mg/ml ophthalmic solution (20 sources)Start: 66-64-2338Cjpdq: 07-08-2023 End: 63-38-9514Toybw: 07-01-2023 End: 48-26-4429qnfnmaessiaksiybrkxazu sodium (Refresh Tears) Discontinued OPHTHALMIC July 01, 2023 12:00am 2024 10:00amStart: 07-01-2023 carboxymethylcellulose sodium (Refresh Tears) Active OPHTHALMIC June 30, 2023 11:00pmStart: 89-85-7022laxsypchhpmrlvfslcnsdf sodium (Refresh Tears) Active OPHTHALMIC July 01, 2023 12:00amStart: 41-85-1948Ghlphqt Tears 0.5 % ophthalmic solution 03/18/2023 ActiveStart: 47-29-9088rkdb 1 drop(s) into the eye(s) three times daily as neededRefresh Tears 0.5 % ophthalmic solution INSTILL 1 DROP INTO EACH EYE 3 TIMES A DAY NEEDED 30 DAYS 03/18/2023 Active Refresh Tears 0.5 % INSTILL 1 DROP INTO EACH EYE 3 TIMES A DAY NEEDED 30 DAYS for 30 Activecholecalciferol 0.05 mg oral capsule (20 sources)Vitamin DStart: 76-65-0983Qazbo: 12-24-2023 End: 02-50-5871Kmlwz: 41-87-1889wgoj 2 capsules by mouth once daily Cholecalciferol (Vitamin D3) Active 0 .ROUTE .COMPLEX 180 December 24, 2023 2:28pm TAKE 2 CAPSULES BY MOUTH EVERY DAYStart: 12-16-2016 End: 88-18-2888Ndutz: 12-16-2016 End: 83-15-9134fzmt 2 capsules by mouth once dailyCholecalciferol (Vitamin D3) 50 mcg (2,000 unit) capsule Discontinued 0 .ROUTE .COMPLEX 180 December 24, 2023 2:28pm December 07, 2024 9:53am TAKE 2 CAPSULES BY MOUTH EVERY DAYStart: 12-16-2016 End: 96-29-0754jqhn 1 capsule by mouth twice dailyCholecalciferol (Vitamin D3) 2,000 unit capsule Discontinued 1 CAP PO Twice daily December 16, 2016 12:00am December 24, 2023 2:28pmStart: 69-21-8831wkhz 1 capsule by mouth once daily Cholecalciferol (Vitamin D3) Active 1 CAP PO Daily December 16, 2016 12:00am clobetasol propionate 0.5 mg/ml topical cream (20 sources)CorticosteroidStart: 87-70-2513yhechuabsm (Temovate) 0.05 % cream 11/08/2023 ActiveStart: 07-29-2021 End: 14-01-0226outRDClrw hydrochloride 0.1 mg oral tablet (20 sources)Central alpha-2 Adrenergic AgonistStart: 90-16-4587Ujpwu: 10-21-2021 take 1 tablet by mouth twice dailycloNIDine HCl 0.1 MG 1 tablet Orally twice daily for 90 day(s) Oct, ActiveComp.Stocking,Thigh,Long,Large (20 sources)Start: 66-89-1587Neyr.Stocking,Thigh,Long,Large Active 0 .Route 2 May 27, 2023 5:01pm 20-30 COMPRESSION ,WEARDAILY, 30 DAYSStart: 36-02-7130Lbfb.Stocking,Thigh,Long,Large Active 0 .Route 2 May 27, 2023 1:00am As directedStart: 05-27-2023 End: 91-27-1627Dfvj.Stocking,Thigh,Long,Large Discontinued 0 .Route 2 May 27, 2023 1:00am May 27, 2023 5:01pm WEAR DAILY, 30 DAYSStart: 19-02-0946Teqt.Stocking,Thigh,Long,Large Active 0 .Route 2 May 27, 2023 12:00am As directedComp.Stocking,Thigh,Long,Large misc (20 sources)Start: 73-95-3133Qjty.Stocking,Thigh,Long,Large misc Active 0 .Route 2 May 27, 2023 5:01pm 20-30 COMPRESSION ,WEAR DAILY, 30 DAYSStart: 43-46-4788Npfd.Stocking,Thigh,Long,Large misc Active 0 .Route 2 May 27, 2023 4:01pm 20-30 COMPRESSION ,WEAR DAILY, 30 DAYSStart: 05-27-2023 Comp.Stocking,Thigh,Long,Large misc Active 0 .Route 2 May 27, 2023 1:00am As directedStart: 05-27-2023 End: 53-16-4340Algv.Stocking,Thigh,Long,Large misc Discontinued 0 .Route 2 May 27, 2023 1:00am May 27, 2023 5:01pm WEAR DAILY, 30 DAYSStart: 74-90-8107Mzpi.Stocking,Thigh,Long,Large misc Active 0 .Route 2 May 27, 2023 12:00am As directedStart: 05-27-2023 End: 75-07-6225Vrzs.Stocking,Thigh,Long,Large misc Discontinued 0 .Route 2 May 27, 2023 12:00am May 27, 2023 4:01pm WEAR DAILY, 30 DAYS Continuous Blood Gluc Sensor (FreeStyle Alfredo 2 Sensor) misc (20 sources)Start: 21-23-8502Vykspihwrp Blood Gluc Sensor (FreeStyle Alfredo 2 Sensor) misc 07/01/2023 ActiveStart: 47-41-0716Spgqnrcegi Blood Gluc Sensor (FreeStyle Alfredo 2 Sensor) misc USE DIRECTED EVERY 14 DAYS 07/01/2023 Active Continuous Glucose Candle Wrapping Machine Operator (FreeStyle Alfredo 3 Belen) device (20 sources)Start: 22-85-3423Jefadcrrzr Glucose Candle Wrapping Machine Operator (FreeStyle Alfredo 3 Belen) device Indications: Type 2 diabetes mellituswith hyperglycemia, with long-term current use of insulin ([facility]) USE DIRECTED 1 each 09/12/2024 Active Start: 45-56-0396Scaucwvejd Glucose Candle Wrapping Machine Operator (FreeStyle Alfredo 3 Belen) device Indications: Type 2 diabetes mellituswith hyperglycemia, with long-term current use of insulin ([facility]/HCC) USE DIRECTED 1 each 09/12/2024 ActiveStart: 08-22-2024 End: 22-09-3119Tsdrtmgjoh Glucose Candle Wrapping Machine Operator (FreeStyle Alfredo 3 Belen) device Indications: Type 2 diabetes mellituswith hyperglycemia, with long-term current use of insulin (CMS/HCC) 1 Device Daily 1 each 08/22/2024 08/22/2025 Active Continuous Glucose Sensor (FreeStyle Alfredo 3 Plus Sensor) misc (20 sources)Start: 10-25-2024 End: 83-29-8798Lhxvnqfmdg Glucose Sensor (FreeStyle Alfredo 3 Plus Sensor) [facility] [place] Indications: Type 2 diabetes mellitus with hyperglycemia, with long-term current use of insulin ([facility]) 1 Bar Every 15 Days 6 each 1 10/25/2024 01/23/2025 Active Start: 08-22-2024 End: 70-70-1105Horbtastmi Glucose Sensor (FreeStyle Alfredo 3 Plus Sensor) [facility] [place] Indications: Type 2 diabetes mellitus with hyperglycemia, with long-term current use of insulin ([facility]) 1 Bar Every 15 Days 6 each 1 08/22/2024 11/20/2024 Active Start: 08-22-2024 End: 94-12-3685Elafenuzwq Glucose Sensor (FreeStyle Alfredo 3 Plus Sensor) [facility] [place] Indications: Type 2 diabetes mellitus with hyperglycemia, with long-term current use of insulin (CMS/[facility]) 1 Bar Every 15 Days 6 each 1 08/22/2024 11/20/2024 Activedapagliflozin 5 mg oral tablet (20 sources)Sodium-Glucose Cotransporter 2 InhibitorStart: 12-23-2023 End: 02-82-7493mfhk 1 tablet by mouth once dailydapagliflozin (Farxiga) 10 MG Indications: Type 2 diabetes mellitus with hyperglycemia ([facility]) Take 1tablet (10 mg) by mouth Daily 90 tablet 1 08/22/2024 ActiveStart: 08-14-2022 End: 03-62-4354Ctkll: 07-29-2021 End: 31-72-7876itetprjeln sodium 0.01 mg/mg topical gel (20 sources)Nonsteroidal Anti-inflammatory DrugStart: 09-08-2023 End: 24-93-4973uwtfglzxek sodium 1 % gel Indications: Diabetes mellitus due to underlying condition with diabetic polyneuropathy, with long-term current use of insulin ([facility]) APPLY 4 GRAMS TO AFFECTED AREA 4 TIMES DAILY 100 g 3 01/12/2024 ActiveStart: 03-23-2023 End: 61-13-9213igsepsqltx sodium 1 % gel Indications: Diabetes mellitus due to underlying condition with diabetic polyneuropathy, with long-term current use of insulin (CMS/HCC) APPLY 4 GRAMS TO AFFECTED AREA 4 TIMES DAILY 100 g 3 05/21/2023 Activedicyclomine hydrochloride 20 mg oral tablet (20 sources)AnticholinergicStart: 16-42-6461Blqbj: 11-03-2023 End: 70-44-7020Ssici: 07-29-2021 End: 06-41-7350Vnnzt: 07-29-2021 End: 52-73-4792znmz 1 tablet by mouth four times dailyDicyclomine 20 mg Tablet Discontinued 20 MG PO Four times daily July 29, 2021 12:00am October 4:58pmDULoxetine 60 mg delayed release oral capsule (20 sources)Serotonin and Norepinephrine Reuptake InhibitorStart: 04-20-2024 End: 57-16-8141Ebiqn: 06-24-2022 End: 19-58-0515Etogx: 08-16-2021 End: 66-48-5132Uumly: 01-24-2018 End: 16-04-3611Wffen Glucose Sensor (Freestyle Alfredo 2 Sensor) kit (10 sources)Start: 61-30-3874Pzryb Glucose Sensor (Freestyle Alfredo 2 Sensor) kit Active 0 .Route 6 January 31, 2024 11:00pm AsdirectedStart: 23-27-4394Efzrv Glucose Sensor (Freestyle Alfredo 2 Sensor) kit Active 0 .Route 6 February 01, 2024 12:00am Asdirectedfluticasone propionate 0.05 mg/actuat metered dose nasal spray (20 sources)CorticosteroidStart: 57-04-5400ceym 1 spray(s) nasal route once dailyfluticasone (Flonase) 50 MCG/ACT nasal spray Indications: Chronic obstructive pulmonary disease, unspecified (HCC) USE 1 SPRAY INTO EACH NOSTRIL EVERY DAY FOR 30 DAYS 16 mL 12/05/2022 ActiveStart: 01-24-2018 End: 02-48-6367Devzz: 01-24-2018 End: 13-50-6040Wrhtnzcsoau Propionate (Flonase) 50 mcg/actuation [place],Suspension Discontinued 1 SPRAY INTRANASAL Daily July 29, 2021 12:00am September 19, 2024 10:01amStart: 12-16-2016 End: 66-97-6286Iipzj: 12-16-2016 End: 22-59-6423Qlnlvwdpiza Propionate (Flonase Allergy Relief) 50 mcg/actuation [place],Suspension Discontinued 1 SPRAY INTRANASAL Daily 30 30 Sarahy 15th, 2017 12:47pm April 17, 2017 11:04amtake 1 spray(s) nasal route once daily as neededFreeStyle Alfredo 14 Day Belen - (20 sources)Start: 21-41-0404Ozvdx: 55-02-1936IdwqSjwju Alfredo 14 Day [place] - as directed every 14 days Feb, ActiveFreeStyle Alfredo 14 Day Sensor - (20 sources)Start: 53-91-1587Kyccr: 93-57-5273FnxaUkjzc Alfredo 14 Day Sensor - as directed every 14 days for 28 days Feb, ActiveFreeStyle Alfredo 2 [place] - (20 sources)Start: 85-04-0915FjujMvxqc Alfredo 2 Belen - as directed Feb, ActiveFreeStyle Alfredo 2 [place] - as directed ActiveFreeStyle Alfredo 2 Sensor - (20 sources)Start: 23-78-0092Wntgh: 00-73-4478Frxcl: 83-34-8678YjflCoytq Alfredo 2 Sensor - as directed SQ every 14 days for 90 days Jul, ActiveStart: 58-76-3049MkuzExuyx Alfredo 2 Sensor - as directed SQ every 2 weeks for 30 days Feb, Activefurosemide 40 mg oral tablet (20 sources)Loop DiureticStart: 57-26-7385Eizem: 10-28-2023 End: 17-16-6211Gmsqu: 04-28-2023 End: 42-03-7881Aizcf: 12-16-2016 End: 25-56-9751Gxsio: 12-27-2013 End: 00-13-2897Wpviy: 96-41-9231stzc 1.5 tablets by mouth once dailyfurosemide (Lasix) 40 MG tablet TAKE 1.5 TABLETS BY MOUTH ONCE DAILY 05/17/2023 Active Start: 12-27-2013 End: 49-14-1158grwz 1 tablet by mouth once dailyFurosemide 20 mg tablet Discontinued 1 TAB PO Daily December 26, 2016 12:47pm July 29, 2021 11:13amgabapentin 600 mg oral tablet (20 sources)Anti-epileptic AgentStart: 23-38-7286lxhqsnadld (Neurontin) 600 MG tablet 01/05/2024 ActiveStart: 37-12-3673xffgfyeedl (Neurontin) 600 MG tablet TAKE 1.5 TABS IN AM, 1 TAB AT NOON, AND 1.5 TABS AT BEDTIME 01/05/2024 Active Start: 04-12-9508Ugkbi: 09-16-2022 End: 23-37-6922gtge 1 capsule by mouth once dailyGabapentin 300 mg capsule Active 300 MG PO Daily July 01, 2023 12:00amStart: 08-16-2021 End: 89-34-9859Fybpy: 08-16-2021 End: 75-04-1666trjm 600 mg by mouth twice dailyGabapentin Discontinued 600 MG PO Twice daily August 16, 2021 12:00am July 01, 2023 4:02pmStart: 90-57-7843haio 300 mg by mouth three times dailyGabapentin Active 300 MG PO Three times daily August 16, 2021 12:00amStart: 89-54-7669orjc 100 mg by mouth three times daily Gabapentin Active 100 MG PO Three times daily August 16, 2021 12:00amStart: 12-16-2016 End: hr guaiFENesin 600 mg extended release oral tablet (20 sources)Start: 01-14-2024 End: 01-19-8967xlwo 1 tablet by mouth in the morning, [...] 01/14/2024 08/25/2024 Discontinued (Med listcleanup)Start: 11-30-2023 End: 01-90-7903urra 1 tablet by mouth twice daily at bedtimeguaiFENesin (Mucinex) 600 MG 12 hr tablet Indications: Chronic obstructive pulmonary disease, unspecified COPD type (CMS/HCC) TAKE 1 TABLET BY MOUTH TWICE DAILY IN THE MORNING AND BEFORE BEDTIME. 60 tablet 11 11/30/2023 01/14/2024 Discontinued (Reorder)Start: 50-86-3048cgnn 1 tablet by mouth in the morning, then take 1 tablet by mouth every twelve hours at bedtimeguaiFENesin (Mucus Relief) 600 MG 12 hr tablet Indications: Chronic obstructive pulmonary disease, unspecified COPD type (CMS/HCC) Take 1 tablet (600 mg) by mouth in the morning and 1 tablet (600 mg)before bedtime. 60 tablet 5 01/26/2023 ActivehydrOXYzine hydrochloride 25 mg oral tablet (20 sources)AntihistamineStart: 45-86-7421kbov 1 tablet by mouth three times daily as needed for anxietyhydrOXYzine HCl (Atarax) 25 MG tablet Take 25 mg by mouth 3 (three) times a day as needed for anxiety 08/12/2024 ActiveStart: ml insulin aspart, human 100 unt/ml pen injector (20 sources)Insulin AnalogStart: 56-81-1840Rosrq: 45-75-9332Jotan: 08-17-2024 insulin aspart (NovoLOG FLEXPEN) 100 UNIT/ML pen Indications: Type 2 diabetes mellitus with hyperglycemia, with long-term current use of insulin (HCC) Inject 40 Units under the skin in the morning and 40 Units at noon and 40 Units in the evening. Inject before meals. 120 mL 1 08/17/2024 ActiveStart: 80-26-8552svjiqme aspart (NovoLOG FLEXPEN) 100 UNIT/ML pen Indications: Type 2 diabetes mellitus with hyperglycemia, with long-term current use of insulin (CMS/HCC) Inject 40 Units under the skin in the morning and 40 Units at noon and 40 Units in the evening. Inject before meals. 120 mL 1 06/01/2024 ActiveStart: 72-79-4065VdzdQBO FLEXPEN 100 UNIT/ML pen PLEASE SEE ATTACHED FOR DETAILED DIRECTIONS 10/22/2023 ActiveStart: 12-19-2016 End: 26-83-0045Lqyvx: 12-19-2016 End: 61-68-1015Xqvsntp Aspart U-100 (Novolog Flexpen U-100 Insulin) 100 [...] information source for Protocol details.Start: 12-19-2016 End: 24-22-0059Yupaych Aspart U-100 (Novolog Flexpen U-100 Insulin) 100 unit/mL Insulin Pen Discontinued 0 UNITS SUBCUT 3X/Day with meals and bedtime December 19, 2016 12:00am April 17, 2017 11:02am Please contact the information source for Protocol details.3 ml insulin glargine 100 unt/ml pen injector (20 sources)Insulin AnalogStart: 11-14-2024 End: 98-14-8905gzvkrs 40 [IU] by subcutaneous injection in the morninginsulin glargine (Lantus SoloStar) 100 UNIT/ML pen Indications: Type 2 diabetes mellitus with hyperglycemia, with long-term current use of insulin (HCC) Inject 40 Units under the skin in the morning and 40 Units before bedtime. 72 mL 1 11/14/2024 ActiveStart: 05-25-2024 End: 12-02-5340tvthgnc glargine (Lantus SoloStar) 100 UNIT/ML pen Indications: Type 2 diabetes mellitus with hyperglycemia, with long-term current use of insulin (HCC) Inject 50 Units under the skin in the morning.45 mL 1 08/17/2024 11/14/2024 Discontinued (Reorder)Start: 12-05-2022 End: 00-35-1274Mpgihzj Glargine (Lantus Solostar U-100 Insulin) 100 unit/mL (3 mL) insulin pen Discontinued 30 UNIT SUBCUT 3x/Day before meals December 05, 2022 12:00am December 05, 2022 1:39pm If Blood sugar is greater than 140 takes 2 more units-per patientStart: 08-16-2021 End: 94-83-7909Wredb: 08-16-2021 End: 48-91-2677Frkzf: 42-38-9990Fwwhuex Glargine (Basaglar Kwikpen U-100 Insulin) 100 unit/mL (3 mL) Insulin Pen Active 15 UNIT SUBCUT Every morning August 16, 2021 12:00am If BGL greater than 140Basaglar KwikPen 100 UNIT/ML 22 units Subcutaneous once a day ActiveBasaglar KwikPen 100 UNIT/ML 17 units Subcutaneous once a day ActiveLantus Active3 ml insulin lispro-aabc 100 unt/ml pen injector (20 sources)Insulin AnalogStart: 05-25-2024 End: 94-79-9027oaoykjo lispro-aabc (Lyumjev KwikPen) 100 UNIT/ML pen Indications: Type 2 diabetes mellitus with hyperglycemia, with long-term current use of insulin (HCC) Inject 40 Units under the skin in the morning and 40 Units at noon and 40 Units in the evening. Inject with meals. 36 pen 1 05/25/2024 11/21/2024 ActiveStart: 03-20-2023 End: 15-02-8500Trrrlqr KwikPen 100 UNIT/ML pen PLEASE SEE ATTACHED FOR DETAILED DIRECTIONS 03/20/2023 05/25/2024 Discontinued (Reorder)Start: 37-20-3627Shkxk: 68-75-1744Zbykeip Lispro-Aabc (Lyumjev Kwikpen U-100 Insulin) 100 unit/mL insulin pen Active 40 UNIT SUBCUT 3x/Day before meals December 05, 2022 12:00am FSBS 151-200 2 u 200-250 3 units 250-300 5 units 300-350 6 units 351-400 7 units per patient Complies with drug therapyInsulin Lispro-Aabc (Lyumjev Kwikpen U- 100 Insulin) 100 unit/mL insulin pen (20 sources)Start: 71-99-0857Aiawikj Lispro-Aabc (Lyumjev Kwikpen U-100 Insulin) 100 unit/mL insulin pen Active 30 UNIT SUBCUT 3x/Day before meals December 04, 2022 11:00pm FSBS 151-200 2 u 200-250 3 units 250-300 5 units 300-350 6 units 351-400 7 units per patientStart: 09-09-5663Xmftnrn Lispro-Aabc (Lyumjev Kwikpen U-100 Insulin) 100 unit/mL insulin pen Active 30 UNIT SUBCUT 3x/Day before meals December 05, 2022 12:00am FSBS 151-200 2 u 200-250 3 units 250-300 5 units 300-350 6 units 351-400 7 units per patientIron (17 sources)take 1 tablet by mouth once dailyIron 325 (65 Fe) MG 1 tablet Orally Once a day for 30 day(s) Mljdal54 hr levomilnacipran 120 mg extended release oral capsule (20 sources)Serotonin and Norepinephrine Reuptake InhibitorStart: 07-29-2021 Start: 01-24-2018 End: 08-76-9832wwdienaxfjvaf sodium 0.075 mg oral tablet (20 sources)l-ThyroxineStart: 31-09-4034Mnugi: 34-21-6011Gznszlacmpdkk 75 mcg Tablet Active 50 MCG PO Every morning July 29, 2021 12:00am Complies with dr collins therapyStart: 80-78-3062dvnf 50 ug by mouth once daily in the morning Levothyroxine Active 50 MCG PO Every morning July 29, 2021 12:00amtake 1 tablet by mouth once daily in the morningloperamide hydrochloride 2 mg oral tablet (20 sources)Opioid AgonistStart: 09-99-9248uhcjbihxtj (Imodium A-D) 2 MG tablet 1 tablet 07/01/2023 ActiveStart: 07-01-2023 End: 63-84-4162Ooydt: 48-28-3671yens 1 tablet by mouth every six hoursImodium A- D 2 MG 1 tablet as needed Orally Four times a day for 10 days Mar, ActiveLubricant Eye Drops 0.5 % (20 sources)Start: 13-28-2591hfzl 1 drop(s) into the eye(s) three times daily as neededStart: 64-90-6884Nrimu: 61-28-7209bfbw 1 drop(s) into the eye(s) three times daily as neededLubricant Eye Drops 0.5 % 1 drop each eye Ophthalmic TID PRN for 30 days Jul, Activemagnesium oxide 400 mg oral tablet (20 sources)Start: 04-63-6971Gpybf: 01-24-2018 End: 33-42-3417Zrxrf: 12-16-2016 End: 23-06-6868advagwzvcpu 45 mg oral tablet (20 sources)Start: 29-50-6162pulxvnwuztl (Remeron) 45 MG tablet 07/06/2023 ActiveStart: 07-29-2021 End: 58-34-4990Pvosd: 07-29-2021 End: 39-38-2862Ynirp: 12-16-2016 End: 34-17-5666Nzcfk: 12-16-2016 End: 28-12-6300trxk 1 tablet by mouth at bedtimeMirtazapine 15 mg tablet Discontinued 1 TAB PO Bedtime December 26, 2016 12:47pm April 17, 2017 11:02amOlopatadine 0.1 % drops (5 sources)Start: 41-53-2660etyt 1 drop(s) into the eye(s) twice daily Olopatadine 0.1 % drops Active DROPS OPHTHALMIC July 01, 2023 12:00am FreeTextSig: INSTILL 1 DROP INTO AFFECTED EYE TWICE A DAY FOR 30 DAYS; Note: Source Status: Start; Refills: 5; Qty: 15 Milliliter; Provider: Marbella Whitt ( )Start: 86-41-0252iakm 1 drop(s) into the eye(s) twice daily [...] release oral tablet (20 sources)Cholinergic Muscarinic AntagonistStart: 39-54-4707Jeyyu: 12-16-2016 End: 67-54-4339Hphxkr 4-6 liters (20 sources)Oxygen 4-6 liters continuous 5 liters ActiveOxygen 4-6 liters continuous ActiveOzempic, 0.25 or 0.5 MG/DOSE, 2 MG/3ML solution pen-injector (16 sources)Start: 08-22-2024 End: 66-60-3843Sfwnvxm, 0.25 or 0.5 MG/DOSE, 2 MG/3ML solution pen-injector 08/22/2024 11/14/2024 Discontinued (Dose adjustment)Start: 95-29-5500Ljihodn, 0.25 or 0.5 MG/DOSE, 2 MG/3ML solution pen-injector 08/22/2024 Activepotassium chloride 10 meq extended release oral tablet (1 source)Start: 42-20-6496xodakmweIOFO acetate 10 mg/ml ophthalmic suspension (20 sources)CorticosteroidStart: 04-18-5958kbzolszmCMEV acetate (Pred-Forte) 1 % ophthalmic suspension 01/26/2023 ActivePrenatal (20 sources) ActiveProAir HFA 108 (90 Base) MCG/ACT (20 sources)take 1 puff(s) by inhalation every four hours as neededProAir HFA 108 (90 Base) MCG/ACT 1 puff as needed Inhalation every 4 hrs for 30 days Active take 1 puff(s) by inhalation every four hours as neededRollator Ultra-Light - (20 sources)Start: 65-75-6122Pihot: 48-49-7951Nsuuxjpb Ultra-Light - as directed August, ActiveStart: 37-18-3547Kxgcz: 70-01-8709Llbgggng Ultra-Light - as directed ROLLATOR WITH OXYGEN TANK SINGH August, Active1 mg dose 1.5 ml semaglutide 1.34 mg/ml pen injector (20 sources)Start: 11-14-2024 End: 89-50-9765jmtqou 1 mg by subcutaneous injection every weeksemaglutide (Ozempic, 1 MG/DOSE,) 2 MG/1.5ML solution pen-injector Indications: Type 2 diabetes mellitus with hyperglycemia, with long-term current use of insulin (HCC) Inject 1 mg under the skin 1 (one) time per week 9 mL 1 11/14/2024 05/01/2025 ActiveStart: 08-22-2024 End: 06-90-1621bkcceg 0.5 mg by subcutaneous injection every weeksemaglutide (Ozempic, 0.25 or 0.5 MG/DOSE,) 2 MG/1.5ML solution pen-injector Indications: Type 2 diabetes mellitus with hyperglycemia, with long-term current use of insulin (HCC) Inject 0.5 mg under the skin 1 (one) time per week 4.5 mL 1 08/22/2024 02/06/2025 ActiveStart: 07-29-2021 End: 20-20-0393Iulkb: 07-29-2021 End: 65-89-0728Drxcypwbqzm (Ozempic) 0.25 mg or 0.5 mg(2 mg/1.5 mL) Pen Injector Discontinued 0.5 MG SUBCUT every week July 29, 2021 12:00am August 16, 2021 10:25amStart: 62-70-0262Krmwsvy (0.25 or 0.5 MG/DOSE) 2 MG/1.5ML 0.25 mg weekly for 4 weeks then increase to 0.5 mg weekly Subcutaneous weekly for 30 days May, ActiveSemaglutide (14 sources)Start: 13-48-3042Igezv: 40-29-2602Unkkflcylgg,0.25 or 0.5MG/DOS, (Ozempic, 0.25 or 0.5 MG/DOSE,) 2 MG/3ML solution pen-injector (20 sources)Start: 17-24-6542Zrwoafrsoba,0.25 or 0.5MG/DOS, (Ozempic, 0.25 or 0.5 MG/DOSE,) 2 MG/3ML solution pen-injector Indications: Type 2 diabetes mellitus with hyperglycemia, with long-term current use of insulin (HCC) INJECT 0.5 MG UNDER THE SKIN 1 (ONE) TIME PER WEEK 6 mL 1 10/19/2024 ActivetiZANidine 4 mg oral tablet (20 sources)Central alpha-2 Adrenergic AgonistStart: 41-69-1623Jzexs: 07-01-2023 Start: 07-29-2021 End: 17-07-3278Yiidv: 01-24-2018 End: 69-03-4703Dcppd: 12-16-2016 End: 89-21-1147Bqeav: 12-16-2016 End: 98-75-1627mpbr 1 tablet by mouth twice daily as needed for anxiety Tizanidine 4 mg tablet Discontinued 1 TAB PO Twice daily as needed for Anxiety 60 30 December 26, 2016 12:47pm April 17, 2017 10:58amtobramycin 3 mg/ml ophthalmic solution (15 sources)Aminoglycoside AntibacterialStart: 86-71-3395rhms 1 drop(s) into the eye(s) every four hoursTobramycin 0.3 % 1 drop into affected eye Ophthalmic every 4 hrs for 7 days May, ActivetraMADol hydrochloride 50 mg oral tablet (20 sources)Opioid Agonisttake 1 tablet by mouth every eight hourstraMADol HCl 50 MG 1 tablet as needed Orally three times a day Activetriamcinolone acetonide 0.001 mg/mg topical ointment (20 sources)CorticosteroidStart: 05-15-2023 End: 99-14-2614nseeddjljtobe (Kenalog) 0.1 % ointment 05/15/2023 08/25/2024 Discontinued (Med list cleanup)Start: 93-29-5835wvylromexqmjj (Kenalog) 0.1 % ointment APPLY TWICE DAILY FOR 2 WEEKS APPLY TO LOWER LEGS DISCUSSED 05/15/2023 ActiveStart: 24-93-6653Nolqqgs D-3 1999 (20 sources)take 2 capsules by mouth once dailytake 2 capsules by mouth once dailyVitamin D-3 2000 2 CAP Orally Once a day for 90 days Activetake 2 capsules by mouth once dailyVitamin D-3 1999 2 CAP Orally Once a day for 30 day(s) Active Wheelchair - (20 sources)Start: 34-59-7395Qsskg: 35-82-5420Bckas: 63-93-3639Nrqxcktsss - as directed WITH OXYGEN TANK SINGH August, Activezonisamide 25 mg oral capsule (20 sources)Anti-epileptic AgentStart: 93-91-0736Lbkbl: 74-78-9935vsyjnvakrx (Zonegran) 25 MG capsule 07/01/2023 ActiveStart: 07-75-1477fhak 50 mg by mouth twice dailyZonisamide Active 50 MG PO Twice daily July 01, 2023 12:00amStart: 07-29-2021 End: 29-03-5461Lrfim: 07-29-2021 End: 07-96-5404hddq 25 mg by mouth twice dailyZonisamide Discontinued 25 MG PO Twice daily July 29, 2021 12:00am July 01, 2023 4:00pmtake 2 capsules by mouth every twelve hourstake 2 capsules by mouth every twelve hours (20 sources)Start: 88-38-4281Xdmuh: 07-01-2023 End: 57-23-1626Iyyun: 07-01-2023 End: 24-19-8005Qitsh: 00-79-1445Xvyux: 16-62-7682Phkrk: 05-27-2023 End: 05-27-2023 Completed/Discontinued Medications MedicationDrug Class(es)DatesSig (Normalized)Sig (Original)allopurinol 300 mg oral tablet (20 sources)Xanthine Oxidase InhibitorStart: 01-24-2018 End: 51-96-0983qdczxikcdxxlh hydrochloride 10 mg oral tablet (20 sources)Tricyclic AntidepressantStart: 07-29-2021 End: 29-79-5506sgcszglly 5 mg sublingual tablet (20 sources)Atypical AntipsychoticStart: 00-85-9765rtoc 5 mg under the tongue once daily at bedtimeAsenapine Maleate Active 5 MG SUBLINGUAL Daily at bedtime July 01, 2023 12:00amStart: 01-24-2018 End: 96-54-4590Mwbmkgvca Maleate (Saphris ([place] Simon)) 5 mg Tablet, Sublingual (20 sources)Start: 01-24-2018 End: 99-09-7176ubrx 1 tablet under the tongue once dailyAsenapine Maleate (Saphris ([place] Simon)) 5 mg Tablet, Sublingual Discontinued 5 MG SUBLINGUAL Daily January 23, 2018 11:00pm August 16, 2021 9:19amStart: 01-24-2018 End: 84-78-0254kftb 1 tablet under the tongue once dailyAsenapine Maleate (Saphris ([place] Simon)) 5 mg Tablet, Sublingual Discontinued 5 MG SUBLINGUAL Daily January 24, 2018 12:00am August 16, 2021 10:19amAsenapine Maleate (Saphris) 5 mg Tablet, Sublingual (20 sources)Start: 08-16-2021 End: 94-24-1825frgd 1 tablet under the tongue once daily at bedtimeAsenapine Maleate (Saphris) 5 mg Tablet, Sublingual Discontinued 5 MG SUBLINGUAL Daily at bedtime August 15, 2021 11:00pm September 26, 2021 8:13amStart: 08-16-2021 End: 63-32-6723xzrg 1 tablet under the tongue once daily at bedtimeAsenapine Maleate (Saphris) 5 mg Tablet, Sublingual Discontinued 5 MG SUBLINGUAL Daily at bedtime August 16, 2021 12:00am September 26, 2021 9:13amaspirin 81 mg delayed release oral tablet (20 sources)Platelet Aggregation Inhibitor, Nonsteroidal Anti-inflammatory Drug Start: 07-01-2023 End: 90-08-4427Vjgng: 12-19-2016 End: 65-50-8540ouzkispwhzdo 40 mg oral tablet (20 sources)HMG-CoA Reductase InhibitorStart: 12-19-2016 End: 89-12-3461thnghekmzlo 100 mg oral capsule (20 sources)Non-narcotic AntitussiveStart: 06-15-2023 End: 91-48-6914Tmpsa: 06-30-2022 End: 97-20-1741uuunqenbewiya 3 mg oral tablet (20 sources)Atypical AntipsychoticStart: 07-01-2023 End: 58-18-7104Jbzbm: 26-40-6059Viqyd: 01-24-2018 End: 18-09-2539Wyfvn: 12-16-2016 End: 39-86-6020rcdv 1 tablet by mouth once dailyBrexpiprazole 3 MG 1 tablet Orally Once a day ActiveCarboxymethylcellulose Sodium (Refresh Tears) 0.5 % drops (12 sources)Start: 07-08-2023 End: 82-38-0051bncw 1 drop(s) into the eye(s) twice daily as needed Carboxymethylcellulose Sodium (Refresh Tears) 0.5 % drops Discontinued 2 DROPS EYE-BOTH Twice dailyas needed for dry eye(s) July 08, 2023 12:00am October 09, 2023 12:17pmStart: 07-08-2023 End: 32-11-9857ytsl 1 drop(s) into the eye(s) twice daily as needed Carboxymethylcellulose Sodium (Refresh Tears) 0.5 % drops Discontinued 2 DROPS EYE-BOTH Twice dailyas needed for dry eye(s) July 07, 2023 11:00pm October 09, 2023 11:17amStart: 07-08-2023 End: 82-02-7814jtov 1 drop(s) into the eye(s) twice dailyCarboxymethylcellulose Sodium (Refresh Tears) 0.5 % drops Discontinued 2 DROPS EYE-BOTH Twice dailyJuly 08, 2023 12:00am October 09, 2023 12:17pmStart: 33-73-4946ozfv 1 drop(s) into the eye(s) twice dailyCarboxymethylcellulose Sodium (Refresh Tears) 0.5 % drops Active 2 DROPS EYE-BOTH Twice daily July 08, 2023 12:00amcarvedilol 25 mg oral tablet (20 sources)alpha-Adrenergic Apple, beta-Adrenergic BlockerStart: 11-11-2023 End: 04-38-4076Dstut: 07-01-2023 End: 47-08-4136Nevxw: 12-19-2016 End: 06-51-5790Swnpp: 12-19-2016 End: 83-30-1218wuvi 1 tablet by mouth twice dailyCarvedilol 6.25 mg Tablet Discontinued 6.25 MG PO Twice daily 60 30 December 26, 2016 12:47pm January 24, 2018 6:41pmStart: 12-19-2016 End: 03-07-8914Zaone: 12-16-2016 End: 93-10-0101iulh 1 tablet by mouth every twelve hoursCoreg 25 MG tablet Take 25 mg by mouth every 12 (twelve) hours Activecelecoxib 200 mg oral capsule (20 sources)Nonsteroidal Anti-inflammatory DrugStart: 08-16-2021 End: 74-24-8297ftpi 1 capsule by mouth every twelve hoursCelecoxib 200 MG 1 capsule with food Orally Twice a day Activecolestipol hydrochloride 1000 mg oral tablet (20 sources)Bile Acid SequestrantStart: 07-01-2023 End: 03-81-0614Tpmtb: 81-56-8531edra 2 g by mouth once dailyColestipol Active 2 GM PO Daily July 01, 2023 12:00amStart: 07-29-2021 End: 45-16-8650Vuvnf: 07-29-2021 End: 82-00-4952khga 2 g by mouth once dailyColestipol Discontinued 2 GM PO Daily July 29, 2021 12:00am July 30, 2022 3:01pmStart: 04-30-0816moad 2 tablets by mouth every twenty-four hoursStart: 20-86-1327ompv 2 tablets by mouth every twenty-four hoursStart: 44-58-0263yqld 2 tablets by mouth every twenty-four hourscyclobenzaprine hydrochloride 10 mg oral tablet (20 sources)Muscle RelaxantStart: 07-29-2021 End: 28-50-3607xbaxsUME 10 mg oral tablet (20 sources)BenzodiazepineStart: 12-16-2016 End: 62-27-4420phwabuvfkok 100 mg oral tablet (20 sources)mu-Opioid Receptor AgonistStart: 12-16-2016 End: .3 ml enoxaparin sodium 100 mg/ml prefilled syringe (20 sources)Low Molecular Weight HeparinStart: 12-19-2016 End: 49-11-7553gmgnfykvn, conjugated (detention) 0.3 mg oral tablet (20 sources)EstrogenStart: 01-24-2018 End: 09-73-2349zdgeqje sulfate 325 mg oral tablet (20 sources)Start: 07-01-2023 End: 93-36-5490Ffsqh: 45-44-4332oxqv 1 tablet by mouth every twenty-four hours Start: 11-21-9472txru 1 tablet by mouth once dailyFerrous Sulfate 325 (65 Fe) MG 1 tablet Orally daily for 90 days Oct, ActiveStart: 07-29-2021 End: 61-02-5320Xxlvu: 12-16-2016 End: 96-66-9617Dmhuu: 12-16-2016 End: 83-00-1540vzuz 1 tablet by mouth once dailyFerrous Sulfate 325 mg (65 mg iron) tablet Discontinued 1 TAB PO Daily December 26, 2016 12:47pm January 24, 2018 6:40pmFluticasone Propion-Salmeterol (20 sources)Corticosteroid, beta2-Adrenergic AgonistStart: 12-26-2016 End: 02-01-9163Xatte: 12-26-2016 End: 96-96-3122agxu 1 puff(s) by inhalation twice dailyFluticasone Propion- Salmeterol (Advair Hfa) 115-21 mcg/actuation Hfa Aerosol Inhaler Discontinued 2 PUFF INHALATION Twice daily December 26, 2016 11:47am April 17, 2017 10:04amStart: 12-26-2016 End: 21-38-2104cwdt 1 puff(s) by inhalation twice dailyFluticasone Propion- Salmeterol (Advair Hfa) 115-21 mcg/actuation Hfa Aerosol Inhaler Discontinued 2 PUFF INHALATION Twice daily December 26, 2016 12:47pm April 17, 2017 11:04amStart: 12-19-2016 End: 85-72-9095Dthgq: 12-19-2016 End: 00-31-9803ecax 1 puff(s) by inhalation twice dailyFluticasone Propion- Salmeterol (Advair Hfa) 115-21 mcg/actuation Hfa Aerosol Inhaler Discontinued 2 PUFF INHALATION Twice daily December 18, 2016 11:00pm December 26, 2016 11:47amStart: 12-19-2016 End: 45-03-7760ubun 1 puff(s) by inhalation twice dailyFluticasone Propion- Salmeterol (Advair Hfa) 115-21 mcg/actuation Hfa Aerosol Inhaler Discontinued 2 PUFF INHALATION Twice daily December 19, 2016 12:00am December 26, 2016 12:47pmipratropium bromide 0.021 mg/actuat metered dose nasal spray (20 sources)AnticholinergicStart: 12-16-2016 End: 88-93-0459Kxjez: 12-16-2016 End: 07-20-4350Vbunlssftmj Burns Discontinued 2 SPRAY INTRANASAL Twice daily December 26, 2016 12:47pm April 17, 2017 11:02amketoconazole 20 mg/ml topical cream (20 sources)Azole AntifungalStart: 09-06-2024 End: 87-51-3719Sijbs: 02-09-2024 End: 89-26-4622svgshgqyvwom 10 mg oral capsule (20 sources)Thalidomide AnalogStart: 02-08-2025 End: 02-09-4889Yefjd: 11-08-2024 End: 09-78-7580jkfUTNSBP hydrochloride 850 mg oral tablet (20 sources)BiguanideStart: 07-29-2021 End: 29-22-7259Rcrlx: 04-17-2017 End: 54-03-5959vruZFKQKU hydrochloride 850 mg / pioglitazone 15 mg oral tablet (20 sources)Biguanide, Peroxisome Proliferator Receptor alpha Agonist, Peroxisome Proliferator Receptor gamma Agonist, ThiazolidinedioneStart: 07-01-2023 End: 29-95-8557Rxoib: 07-01-2023 End: 61-97-3533qmmy 1 tablet by mouth twice dailyPioglitazone-Metformin 15-850 mg tablet Discontinued 1 TAB PO Twice daily July 01, 2023 12:00am September 19, 2024 10:02amStart: 12-16-2016 End: 61-40-3932Yffyr: 12-16-2016 End: 24-87-3948oqvj 1 tablet by mouth once daily at breakfastPioglitazone- Metformin 15-850 mg tablet Discontinued 1 TAB PO Daily with breakfast December 16, 2016 12:00am December 26, 2016 12:42pmtake 1 tablet by mouth every twelve hoursMethylprednisolone (17 sources)CorticosteroidStart: 08-08-2024 End: 23-14-0318Lrdwvjkogvquocudlg 4 mg tablets,dose pack Discontinued 0 PO per package directions August 08, 2024 12:00am September 19, 2024 10:01am PO PER PKG DIR for 6 daysStart: 08-08-2024 End: 33-82-6371Vaizp: 10-41-3347mnaxjgHCFHWPGdiohq 4 MG as directed Orally as directed for 6 days Jul, Activemontelukast 10 mg oral tablet (20 sources)Leukotriene Receptor AntagonistStart: 12-16-2016 End: 86-16-9204xbobioltob 750 mg oral tablet (20 sources)Nonsteroidal Anti-inflammatory DrugStart: 01-24-2018 End: 32-91-4704Mhkcl: 12-16-2016 End: 33-03-6525stdvxmdqzkzll 10 mg oral capsule (20 sources)Tricyclic AntidepressantStart: 01-24-2018 End: 79-47-5127Ictuv: 12-16-2016 End: 25-03-0073wnkaomlbnoq 1 mg/ml ophthalmic solution (20 sources)Histamine-1 Receptor InhibitorStart: 09-06-2024 End: 86-42-6372Kkmud: 07-01-2023 End: 71-28-6787Glpnk: 97-12-8980qgke 1 drop(s) into the eye(s) twice daily Olopatadine Active DROPS OPHTHALMIC July 01, 2023 12:00am FreeTextSig: INSTILL 1 DROP INTO AFFECTED EYE TWICE A DAY FOR 30 DAYS; Note: Source Status: Start; Refills: 5; Qty: 15 Milliliter; Provider: Marbella Whitt ( ) Start: 50-01-9829wfukxysjsbq (Patanol) 0.1 % ophthalmic solution 06/26/2023 ActiveStart: 81-73-9206ibaw 1 drop(s) into the eye(s) twice dailyolopatadine (Patanol) 0.1 % ophthalmic solution INSTILL 1 DROP INTO AFFECTED EYE TWICE A DAY 06/26/2023 ActiveStart: 45-18-3959quyy 1 drop(s) into the eye(s) twice daily Olopatadine HCl 0.1 % 1 drop into affected eye Ophthalmic Twice a day for 30 days Sep, ActiveStart: 81-01-7661Wmngislhjwv HCl 0.1 % INSTILL 1 DROP INTO AFFECTED EYE TWICE A DAY FOR 30 DAYS for 30 days Activeomeprazole 40 mg delayed release oral capsule (20 sources)Proton Pump InhibitorStart: 07-30-2023 End: 38-83-3372Blkdx: 01-24-2018 End: 88-31-7164Belre: 12-16-2016 End: 57-24-7816yfsbyyjqndau 15 mg oral tablet (20 sources)Peroxisome Proliferator Receptor alpha Agonist, Peroxisome Proliferator Receptor gamma Agonist, ThiazolidinedioneStart: 12-26-2016 End: 40-49-9930Idvqt: 12-26-2016 End: 37-71-6931gmoa 1 tablet by mouth once daily at breakfastPioglitazone 15 mg Tablet Discontinued 15 MG PO Daily with breakfast December 26, 2016 12:00am January 24, 2018 6:45pmprenatal vit-iron fum-folic ac ( Vitamin) (16 sources)Start: 07-01-2023 End: 29-21-6799klfgphoc vit-iron fum-folic ac ( Vitamin) Discontinued PO July 01, 2023 12:00am September 19, 2024 10:02amStart: 63-76-9459lcdoyqfv vit- iron fum-folic ac ( Vitamin) Active PO June 30, 2023 11:00pmStart: 87-37-9569woqrkpzc vit-iron fum-folic ac ( Vitamin) Active PO July 01, 2023 12:00am24 hr QUEtiapine 300 mg extended release oral tablet (20 sources)Atypical AntipsychoticStart: 12-16-2016 End: 64-62-9362ptakejbzfw 1000 mg oral tablet (20 sources)Aluminum ComplexStart: 60-82-0512fcrn 1 tablet by mouth twice daily Sucralfate 1 gram tablet Active 0 .ROUTE .COMPLEX 60 May 20, 2024 9:10am TAKE 1 TABLET BY MOUTH TWICE DAILY ON AN EMPTY STOMACHStart: 11-09-2023 End: 84-62-4599Ixcot: 11-09-2023 End: 56-97-4942qtty 1 tablet by mouth twice dailySucralfate 1 [...] MOUTH TWICE DAILY ON AN EMPTY STOMACHStart: 42-24-3854mvsk 1 tablet by mouth twice dailySucralfate Active 0 .ROUTE .COMPLEX 60 November 09, 2023 8:32am TAKE 1 TABLET BY MOUTH TWICE DAILY MARIEL EMPTY STOMACHStart: 07-29-2021 End: 45-12-1475Lhzch: 31-75-7644zzzx 1 g by mouth twice dailySucralfate Active 1 GM PO Twice daily July 29, 2021 12:00amStart: 42-81-1638krgh 1 tablet by mouth every eight hoursSucralfate [...] release oral capsule (20 sources)MethylxanthineStart: 08-16-2021 End: 06-19-9182Towom: 07-13-2013 End: hr venlafaxine 150 mg extended release oral capsule (20 sources)Serotonin and Norepinephrine Reuptake InhibitorStart: 12-16-2016 End: 90-44-5134sfpcazvgpugp 20 mg oral tablet (20 sources)Start: 01-24-2018 End: 19-32-3515Ddzdj: 12-16-2016 End: 76-00-3307qthflfrb tartrate 6.25 mg extended release oral tablet (20 sources)gamma-Aminobutyric Acid-ergic AgonistStart: 07-29-2021 End: 64-97-3224Jjoeu: 04-17-2017 End: 26-39-9074Pwgli: 12-16-2016 End: 35-41-3772Dlbkh: 12-16-2016 End: 13-64-6569ltpw 1 tablet by mouth at bedtime as neededZolpidem 10 mg tablet Discontinued 1 TAB PO Bedtime as needed for Insomnia December 26, 2016 12:47pm April 17, 2017 10:58am Problems Active Problems Problem ClassificationProblemDateDocumented DateEpisodic/ChronicAbdominal pain (20 sources)Abdominal pain; Translations: [Unspecified abdominal pain]Onset: 01-14-2024 Resolved: 448460-13-8874HbytsygnTzsam and unspecified renal failure (20 sources)Injury of kidney; Translations: [Acute kidney failure, unspecified] Onset: 01-14-2024 Resolved: 342955-50-0768HsczeokoHgujpaksaymgdi/social admission (8 sources)Patient encounter status; Translations: [Dietary counseling and surveillance]87-36-1894CdplumgaHdeuwcoep and vision defects (20 sources)Visual hallucinations; Translations: [Visual hallucinations]Onset: 01-14-2024 Resolved: 958004-77-8804FwhemlapCspttmk kidney disease (20 sources)Chronic kidney disease stage 3B ; Translations: [Stage 3b chronic kidney disease]Onset: 01-14-2024 Resolved: 215441-03-3573KevnxmqFfolaoa kidney disease (3 sources)Chronic kidney disease; Translations: [Stage 3b chronic kidney disease N18.32]Onset: 04-02-2021 Resolved: 88-52-3587Ruhelhs obstructive pulmonary disease and bronchiectasis (20 sources)Chronic obstructive lung disease; Translations: [Chronic obstructive pulmonary disease, unspecified]Onset: 588296-53-8647ZipryhkHkobrre ulcer of skin (20 sources)Chronic ulcer of skin of lower leg; Translations: [Non-pressure chronic ulcer of other part of leftlower leg limited to breakdown of skin]Onset: 05-01-2021 Resolved: 68-19-0942EzznreuZovejnkzkxt and hemorrhagic disorders (20 sources)Thrombocytopenic purpura; Translations: [Immune thrombocytopenic purpura]Onset: 066933-47-9002PypbvcdCvnonhxwth and other anemia (20 sources)Iron deficiency anemia; Translations: [Iron deficiency anemia, unspecified]Onset: 01-14-2024 Resolved: 808205-27-7284HunbfzdxVrxuygnmaj and other anemia (16 sources)Iron deficiency anemia, unspecified; Translations: [Iron deficiency anemia, unspecified]31-95-9272QorxkxbgXnsxxbcw mellitus with complications (20 sources)Type 2 diabetes mellitus; Translations: [Type 2 diabetes mellitus with unspecified complications]Onset: 04-02-2021 Resolved: 70-57-2250FpmmpmmUqojxlwo mellitus without complication (20 sources)Diabetes mellitus; Translations: [Type 2 diabetes mellitus without complications]Onset: 01-14-2024 Resolved: 439196-93-5966TlbmunuSzbkczsx of white blood cells (20 sources)Neutropenia; Translations: [Neutropenia, unspecified]Onset: 215385-60-2876KanehyaCiaghqxdi of lipid metabolism (8 sources)Mixed hyperlipidemia; Translations: [Mixed hyperlipidemia]01-20-2024 ChronicEsophageal disorders (20 sources)Gastroesophageal reflux disease; Translations: [Gastro-esophageal reflux disease without esophagitis]Onset: 03-21-2021 Resolved: 29-00-0620UvmefyoImloqwoxr hypertension (20 sources)Essential hypertension; Translations: [Essential (primary) hypertension]Onset: 10-21-2021 Resolved: 25-58-9527BtczfuuTcxgx of unknown origin (18 sources)Pyrexia of unknown origin; Translations: [Fever, unspecified]Onset: 768299-94-8955RryfzlvkWmrlq and electrolyte disorders (20 sources)Dehydration; Translations: [Dehydration]Onset: 01-14-2024 Resolved: 357354-04-4958RuugrywgMfaaztgqenclcq ulcer (except hemorrhage) (20 sources)Peptic ulcer; Translations: [Peptic ulcer, site unspecified, unspecified as acute or chronic, without hemorrhage or perforation]Chronic Inflammation; infection of eye (except that caused by tuberculosis or sexually transmitteddisease) (1 source)Unspecified conjunctivitisEpisodicMaintenance chemotherapy; radiotherapy (20 sources)Patient encounter status; Translations: [Encounter for antineoplastic chemotherapy]Onset: 300401-22-6314VdpqyubXjwysky and fatigue (20 sources)Fatigue; Translations: [Chronic fatigue, unspecified]Onset: 01-14-2024 Resolved: 125795-60-4945WufkvtpYwkqgqx and fatigue (20 sources)Asthenia; Translations: [Other malaise]Onset: 01-14-2024 Resolved: 283061-54-4674HirzvvrgFjla disorders (20 sources)Major depression with psychotic features; Translations: [Major depressive disorder, single episode,severe with psychotic features]Onset: 01-14-2024 Resolved: 344820-40-3043QkbsoatQoteozwx myeloma (20 sources)IgG myeloma; Translations: [Multiple myeloma not having achieved remission]Onset: 413752-62-9489PleaebdPtanzcz (20 sources)Pain in toe; Translations: [Tinea unguium]62-68-7260Nrxrmmoh Neoplasms of unspecified nature or uncertain behavior (20 sources)Neuropathy; Translations: [Monoclonal gammopathy]Onset: 01-14-2024 Resolved: 198243-66-9215TiaydbtIynpvybofbs deficiencies (8 sources)Vitamin D deficiency; Translations: [Vitamin D deficiency, unspecified]93-00-4526NcffzhlPeae wounds of extremities (20 sources)Injury of left leg; Translations: [Unspecified open wound, left lower leg, initial encounter]20-91-5926TcgwonbrWsoyaanbyktzfb (17 sources)Osteoarthritis of left hip joint; Translations: [Unilateral primary osteoarthritis, left hip]78-51-8887KpmzizhYzrto aftercare (20 sources)Long-term current use of insulin; Translations: [[facility] (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]Onset: 01-14-2024 Resolved: 718815-04-8395KhulwesjZkhmu aftercare (4 sources)Other carpet cutter (current) drug therapyOnset: 12-23-2021 Resolved: 52-19-5920BmuphmgsYwour aftercare (1 source)Follow-up status; Translations: [Encounter for follow-up examination after completed treatment for conditions other than malignant neoplasm] 57-05-3959NtymdulwBkaxm and unspecified benign neoplasm (2 sources)History of polyp of colonEpisodicOther connective tissue disease (20 sources)Rhabdomyolysis; Translations: [Rhabdomyolysis]Onset: 01-14-2024 Resolved: 246776-60-0572IzoqnzwpLcpjk connective tissue disease (20 sources)Recurrent falls ; Translations: [Repeated falls]Onset: 01-14-2024 Resolved: 226210-03-2633ZplpoofoSheoc connective tissue disease (1 source)Repeated fallsEpisodicOther connective tissue disease (3 sources)Trochanteric bursitis; Translations: [Trochanteric bursitis, left hip]88-53-7709MtdhasdeYkmjf connective tissue disease (1 source)Trochanteric bursitis, left hip; Translations: [Enthesopathy of hip region]43-99-8819TfxdaavlZlnjz connective tissue disease (14 sources)Trochanteric bursitis of left hip; Translations: [Trochanteric bursitis, left hip]76-96-6483OojowmcfPvwfr diseases of kidney and ureters (20 sources)Kidney disease; Translations: [Disorder of kidney and ureter, unspecified]Onset: 01-14-2024 Resolved: 393340-39-1658XtgjkrplHimgf diseases of veins and lymphatics (20 sources)Acquired lymphedema of lower extremity; Translations: [Lymphedema, not elsewhere classified]ChronicOther diseases of veins and lymphatics (7 sources)Lymphedema, not elsewhere classifiedOnset: 05-23-2021 Resolved: 48-95-6832QbhcitqJiell diseases of veins and lymphatics (20 sources)Ulcer of lower extremity; Translations: [Venous insufficiency (chronic) (peripheral)]EpisodicOther diseases of veins and lymphatics (20 sources)Venous insufficiency (chronic) (peripheral); Translations: [Varicose veins of lower extremities with inflammation]Onset: 05-01-2021 Resolved: 23-67-1556JgyfqhgdHqizl diseases of veins and lymphatics (15 sources)Stasis dermatitis; Translations: [Venous insufficiency (chronic) (peripheral)]18-88-2209WazqmiuzGxggg diseases of veins and lymphatics (20 sources)Venous stasis edema of bilateral lower limbs; Translations: [Venous insufficiency (chronic) (peripheral)]EpisodicOther diseases of veins and lymphatics (1 source)Peripheral venous insufficiency; Translations: [Venous insufficiency (chronic) (peripheral)]EpisodicOther diseases of veins and lymphatics (20 sources)Disorder of vein of lower extremity; Translations: [Venous insufficiency (chronic) (peripheral)]10-02-9694KfhzcrhuXlrso diseases of veins and lymphatics (20 sources)Vascular insufficiency; Translations: [Venous insufficiency (chronic) (peripheral)]Onset: 01-14-2024 Resolved: 861841-92-5167IjjrmjxgKwqvz gastrointestinal disorders (20 sources)Irritable bowel syndrome; Translations: [Irritable bowel syndrome without diarrhea]Onset: 01-14-2024 Resolved: 414171-09-3914DjgqlhdHlmih gastrointestinal disorders (7 sources)Irritable bowel syndrome without diarrhea; Translations: [Irritable bowel syndrome]52-08-9275HsstxhtLmugz gastrointestinal disorders (20 sources)Diarrhea; Translations: [Diarrhea, unspecified]Onset: 01-14-2024 Resolved: 219166-13-3742TlxasxvvCarsw gastrointestinal disorders (1 source)Diarrhea, unspecifiedEpisodicOther hematologic conditions (10 sources)Raised cardiac enzyme or marker; Translations: [Other specified abnormalities of plasma proteins]56-50-1263DnbfqimuLtmso hematologic conditions (20 sources)H/O: anemia - iron deficient; Translations: [Personal history of diseases of the blood and blood-forming organs and certain disorders involving the immune mechanism]23-49-8058FrjfurktEvusq hematologic conditions (1 source)Personal history of diseases of the blood and blood-forming organs and certain disorders involving the immune mechanism; Translations: [Personal history of diseases of blood and blood-forming organs]58-00-2044XzawfjrkQwtfw inflammatory condition of skin (20 sources)Pruritic rash; Translations: [Other pruritus]Onset: 01-14-2024 Resolved: 780279-27-7091GzdqwlasIujez inflammatory condition of skin (1 source)Other pruritus; Translations: [Other specified pruritic conditions] 88-76-7270PljkadkeDvaxo nervous system disorders (20 sources)Chronic pain; Translations: [Other chronic pain]Onset: 01-14-2024 Resolved: 776947-87-3398UoyruxmVpypi nervous system disorders (6 sources)Other chronic pain; Translations: [OTHER CHRONIC PAIN]Onset: 08-07-2021 Resolved: 55-00-9008BsfqoytDbccb nervous system disorders (20 sources)Metabolic encephalopathy; Translations: [Metabolic encephalopathy] Onset: 01-14-2024 Resolved: 113564-17-6610VttsjkqEipxe nervous system disorders (1 source)Polyneuropathy, unspecifiedChronicOther nervous system disorders (20 sources)Pain due to neoplastic disease; Translations: [Neoplasm related pain (acute) (chronic)]89-68-9691FzixbqtWfqrb nervous system disorders (20 sources)Abnormal gait; Translations: [Unsteadiness on feet]Onset: 01-14-2024 Resolved: 253642-25-8926ZbkucssuCfavs nervous system disorders (2 sources)Unsteadiness on feetEpisodicOther non-traumatic joint disorders (2 sources)Pain in left hipEpisodicOther non-traumatic joint disorders (18 sources)Swelling of hand; Translations: [Effusion, unspecified hand] 35-94-4061YdsunpqwHanci non-traumatic joint disorders (1 source)Effusion, unspecified hand; Translations: [Effusion of joint, hand] 24-37-8483MdcsbnzwGcuzd nutritional; endocrine; and metabolic disorders (20 sources)Morbid obesity; Translations: [Morbid (severe) obesity due to excess calories]71-79-3613KzegrauRyvka nutritional; endocrine; and metabolic disorders (20 sources)Hypomagnesemia; Translations: [Hypomagnesemia]Onset: 01-14-2024 Resolved: 039691-58-2478JtazknuJfdcm nutritional; endocrine; and metabolic disorders (20 sources)Morbid (severe) obesity due to excess calories; Translations: [Morbid obesity]54-53-6592SsanbmhRxync nutritional; endocrine; and metabolic disorders (20 sources)Obesity; Translations: [Obesity, unspecified]45-89-9396GddwdroOjakw nutritional; endocrine; and metabolic disorders (20 sources)Body mass index 40+ - severely obese; Translations: [Morbid (severe) obesity due to excess calories]Onset: 01-14-2024 Resolved: 288372-38-6505DkymwhaSsolb nutritional; endocrine; and metabolic disorders (6 sources)Severe obesity; Translations: [Class 3 severe obesity due to excess calories with serious comorbidity and body mass index (BMI) of 45.0 to 49.9 in adult ([facility])]23-44-4817GdlqfiuJlyki nutritional; endocrine; and metabolic disorders (18 sources)Obesity caused by energy imbalance; Translations: [Morbid (severe) obesity due to excess calories]66-26-7503HexfytuGnhkr nutritional; endocrine; and metabolic disorders (2 sources)Body mass index (BMI) 40.0-44.9, adult; Translations: [Body Mass Index 40.0-44.9, adult]Onset: 959526-27-9379QqdriqmKahzx screening for suspected conditions (not mental disorders or infectious disease) (20 sources)Encounter for screening mammogram for malignant neoplasm of breast; Translations: [Encounter for other screening for malignant neoplasm of breast] Onset: 02-27-2021 Resolved: 69-76-0512LobxixoiThuew skin disorders (20 sources)Hemosiderin pigmentation of skin; Translations: [Other specified disorders of pigmentation]Onset: 01-14-2024 Resolved: 443583-56-4966XkvznofzMpaqv skin disorders (6 sources)Asteatosis cutis; Translations: [Xerosis cutis]71-41-2906Haafyqzv Peripheral and visceral atherosclerosis (10 sources)Peripheral vascular disease; Translations: [Peripheral vascular disease, unspecified]ChronicPneumonia (except that caused by tuberculosis or sexually transmitted disease) (15 sources)Pneumonia; Translations: [Pneumonia, unspecified organism]Onset: 959018-88-3531SofasmzoUphdcpro codes; unclassified (20 sources)Obstructive sleep apnea syndrome; Translations: [Obstructive sleep apnea (adult) (pediatric)]Onset: 792028-62-7048VmqnciyJnpaiimc codes; unclassified (9 sources)Obstructive sleep apnea (adult) (pediatric); Translations: [Obstructive sleep apnea (adult)(pediatric)]Onset: 12-23-2021 Resolved: 42-03-8201YoozmmaXsbrnwml codes; unclassified (20 sources)Peripheral edema; Translations: [Edema, unspecified]Onset: 01-14-2024 Resolved: 547719-87-1103ZvgyhdcpXelvapqq codes; unclassified (7 sources)Localized edema; Translations: [Edema]47-63-5671CudahqzeNksbdbyq codes; unclassified (17 sources)Inflammatory zvillirx81-10-4236SkvbubhrXuwovamiweb failure; insufficiency; arrest (adult) (20 sources)Chronic hypercapnic respiratory failure; Translations: [Chronic respiratory failure with hypercapnia]Onset: 01-14-2024 Resolved: 829130-33-0794EgcuorlQwjuinp on above:4-5 L nasal cannula Spondylosis; intervertebral disc disorders; other back problems (20 sources)Degeneration of lumbar intervertebral disc; Translations: [Other intervertebral disc degeneration, lumbar region]Onset: 08-22-2021 Resolved: 79-36-6982VvgpzlvZxvcmgd disorders (20 sources)Acquired hypothyroidism; Translations: [Hypothyroidism, unspecified] Onset: 04-02-2021 Resolved: 36-54-5398ZpdryqbRanyeho disorders (20 sources)Disorder of thyroid gland; Translations: [Disorder of thyroid, unspecified]Onset: 01-14-2024 Resolved: 835168-23-9448HmkpjkqvOixsanllpdzk (4 sources)LOW BACK PAIN, UNSPECIFIED; Translations: [LOW BACK PAIN, UNSPECIFIED]Onset: 02-80-8906Zfdhyicfpmfg (2 sources)Previously scheduled appointment.Unclassified (1 source)You have been scheduled for a follow up appointment for the following date and time, please call to reschedule if needed.Urinary tract infections (20 sources)Urinary tract infectious disease; Translations: [Urinary tract infection, site not specified]Onset: 01-14-2024 Resolved: 030354-79-8286GtbmgnzbRrorqnfc veins of lower extremity (20 sources)Skin ulcer; Translations: [Varicose veins of unspecified lower extremity with ulcer of unspecified site]Onset: 07-22-2021 Resolved: 55-61-2642Mmdaqdji Past or Other Problems Problem ClassificationProblemDateDocumented DateEpisodic/ChronicDeficiency and other anemia (1 source)Deficiency and other anemiaOnset: 10-03-2021 Resolved: 54-40-3669Ztxfoamfhitif symptoms and ill-defined conditions (1 source)Hematuria, unspecifiedOnset: 12-23-2021 Resolved: 48-60-3395EsqextquCzvqd aftercare (1 source)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Onset: 04-02-2021 Resolved: 30-63-8968PdclneagNojtg non-traumatic joint disorders (1 source)Effusion, unspecified joint; Translations: [Effusion, unspecified joint]Onset: 08-01-8534GsaffvlaAqbjd non-traumatic joint disorders (1 source)Stiffness of unspecified joint, not elsewhere classified; Translations: [Stiffness of unspecified joint, not elsewhere classified]Onset: 15-16-0409ZhlrqwjlGtqvp skin disorders (1 source)Localized swelling, mass and lump, lower limb, bilateralOnset: 03-04-2021 Resolved: 77-36-6914IfeeiyhcMnugn skin disorders (2 sources)Generalized hyperhidrosisOnset: 05-23-2021 Resolved: 34-92-4755WqipythqDcfoxecf codes; unclassified (1 source)Edema, unspecifiedOnset: 06-20-2021 Resolved: 13-22-0578IraqizmjSagazdlyvjq; intervertebral disc disorders; other back problems (20 sources)Radiculopathy, lumbar region; Translations: [Sciatica]Onset: 08-22-2021 Resolved: 46-73-7641BteglqqrUdgbscqczckq (2 sources)Unspecified vitamin D deficiency 268.9Onset: 05-15-2021 Resolved: 43-60-5816Phybsjzttgoh (1 source)Low back pain, unspecified M54.50Onset: 08-07-2021 Resolved: 56-68-6004Cgpmfrglkjof (1 source)Cough R05.9Unclassified (1 source)LOW BACK PAIN, UNSPECIFIED; Translations: [LOW BACK PAIN, UNSPECIFIED] Onset: 61-64-1125Irffyvdvcyiq (20 sources)Inflammatory disorder; Translations: [Inflammation]04-28-2023 Results Test NameValueInterpretationReference RangeFacilityAlanine aminotransferase [Enzymatic activity/volume] in Serum or PlasmaOrdered By: Roxane Bills on 14-96-1870WCW [Catalytic activity/Vol]35 U/LNormal7-52Madison HealthComment on above:Performed By: #### CBC, CMP ####[facility] [place] [address] USAAlbumin [Mass/volume] in Serum or Plasma by Bromocresol green (BCG) dye binding methoOrdered By: Roxane Bills on 54-96-8295Zlcwevs BCG dye [Mass/Vol]3.7 g/dL3.5-5.7FClermont County HospitalAlkaline phosphatase [Enzymatic activity/volume] in Serum or PlasmaOrdered By: Roxane Bills on 88-12-9052MIL [Catalytic activity/Vol]142 U/QPkvr49-991 Madison HealthComment on above:Performed By: #### CBC, CMP ####[facility] [place] [address] [facility] Aspartate aminotransferase [Enzymatic activity/volume] in Serum or PlasmaOrdered By: Roxane Bills on 62-70-3431IEN [Catalytic activity/Vol]25 U/EQrfgvo92-91 Madison HealthComment on above:Performed By: #### CBC, CMP ####[address] [address] [place] Basophils [#/volume] in Blood by Automated countOrdered By: Roxane Bills on 92-40-4477Mrsnrskwa (Bld) [#/Vol]0.0 10*3/uLNormal0.0-0.2FClermont County HospitalComment on above:Result Comment: PERFORMED BY:[address] [place], [place] [phone] MEDICAL DIRECTORELAINE CHAUDHARY M.D.Performed By: #### CBC, CMP ####[address] [address] USABasophils/100 leukocytes in Blood by Automated countOrdered By: Roxane Bills on 90-50-3909Dkcqdglac/100 WBC (Bld)0.5 %Normal.Madison HealthComment on above:Performed By: #### CBC, CMP ####[address] [address] USABilirubin.total [Mass/volume] in Serum or PlasmaOrdered By: Roxane Bills on 85-43-2007Schxgztgf [Mass/Vol]0.4 mg/dLNormal0.3-1.0Madison HealthComment on above:Performed By: #### CBC, CMP ####[address] [address] USACBC W Auto Differential panel (Bld)on 54-99-1314Xujtrgxax (Bld) [#/Vol]0.0 10*3/uL0.0 - 0.2 10*3/uLNOMS HealthcareBasophils/100 WBC Manual cnt (Syn fld)0.5 %.NOMS HealthcareEosinophils (Bld) [#/Vol]0.1 10*3/uL0.0 - 0.45 10*3/uLNOMS Healthcare Eosinophils/100 WBC Manual cnt (Syn fld)3.3 %.[facility] HealthcareErythrocyte distribution width (RBC) [Ratio]16.4 %High11.9 - 15.3 %NOM HealthcareHematocrit (Bld) [Volume fraction]36.9 %34.0 - 46.4 %[facility] HealthcareHemoglobin (Bld) [Mass/Vol]12.4 g/dL11.8 - 15.4 g/dLAMERICAN FORK HOSPITAL HealthcareInterpretation and review of laboratory resultsAbnormalAMERICAN FORK HOSPITAL HealthcareLymphocytes (Bld) [#/Vol]1.0 10*3/uL 1.00 - 4.8 10*3/uLNOMS HealthcareLymphocytes/100 WBC Manual cnt (Syn fld)23.4 %. [facility] CenterMCH (RBC) [Entitic mass]30.6 pg24.7 - 34.3 pgHedrick Medical CenterMCHC (RBC) [Mass/Vol]33.6 g/dL32.0 - 35.0 g/dLHedrick Medical CenterMCV (RBC) [Entitic vol] 91.1 fL80 - 100 fLAMERICAN FORK HOSPITAL HealthcareMonocytes (Bld) [#/Vol]0.6 10*3/uL0.0 - 0.8 10*3/uLNOMS HealthcareMonocytes+Macrophages/100 WBC Manual cnt (Syn fld)13.8 %. [facility] HealthcareNeutrophils (Bld) [#/Vol]2.6 10*3/uL1.8 - 7.7 10*3/uLNOMS HealthcareNeutrophils/100 WBC Manual cnt (Syn fld)59.0 %.[facility] HealthcareNRBC0.1 /100{WBC}0 - 0.5 /100{WBC}NOM HealthcarePlatelet mean volume (Bld) [Entitic vol]9.3 fL6.3 - 10.7 fLNOPA HealthcarePlatelets (Bld) [#/Vol]82 10*3/wGJka082 - 450 10*3/uLNOMS HealthcareRBC LM.HPF (Urine sed) [#/Area]4.05 10*6/uL3.60 - 5.00 10*6/uLNOMS HealthcareWBC (Bld) [#/Vol]4.4 10*3/uL3.8 - 11.6 10*3/uLNOMS HealthcareWBC LM.HPF (Urine sed) [#/Area]4.4 [CFU]/mL3.8 - 11.6 [CFU]/mLNOMS HealthcareNOMS HealthcareCalcium [Mass/volume] in Serum or PlasmaOrdered By: Roxane Sanju on 10-06-7907Ibxjice [Mass/Vol]7.7 mg/dLLow8.6-10.3FClermont County HospitalComment on above:Performed By: #### CBC, CMP ####[place] [address] USACarbon dioxide, total [Moles/volume] in Serum or PlasmaOrdered By: Roxane Bills on 05-07-3617BV0 [Moles/Vol]33.7 mmol/LHigh21.0-31.0Madison HealthComment on above:Performed By: #### CBC, CMP ####[place] [id number] USAChloride [Moles/volume] in Serum or PlasmaOrdered By: Roxane Bills on 56-45-0648Ixhqmasm [Moles/Vol]99 mmol/OIfnxij75-733UawipisnvMadison HealthComment on above:Performed By: #### CBC, CMP ####[place] [id number] [facility] Complete Blood Count Auto Diffon 95-40-9110Zznc Corpuscular HGB Conc33.6 g/dL Bycqrf39.0-35.0The [facility] Health Physician GroupComment on above:Performed By: #### CBC, CMP ####[place] [id number] USANRBC%0.1 /100{WBC}Normal0-0.5The [facility] Health Physician GroupComment on above: Performed By: #### CBC, CMP ####[place] [id number] USAWhite Blood Count4.4 [CFU]/mLNormal3.8-11.6The [facility] Health Physician GroupComment on above:Performed By: #### CBC, CMP ####[facility] [place] [address] [facility] Comprehensive Metabolic Panelon 96-65-1902Dalhrth [Mass/Vol]3.7 g/dLNormal 3.5-5.7The [facility] Physician GroupComment on above:Performed By: #### CBC, CMP ####[place] [address] [place] [address] [place] Creatinine Clr Calc Jhgdygju81.86NormalThSaint Alphonsus [facility] Physician GroupComment on above:Result Comment: PERFORMED BY:[address] [place], [place] [phone] MEDICAL DIRECTORELAINE CHAUDHARY M.D.Performed By: #### CBC, CMP ####[address] [address] USAGFR/1.73 sq M.predicted MDRD (S/P/Bld) [Vol rate/Area]48.943 mL/min/{1.73_m2}NormalThe [facility] Health Physician [facility] Medical CenterComment on above:Performed By: #### CBC, CMP ####[address] [address] [facility]Comprehensive metabolic panelon 89-05-7934Wvxhxhy [Mass/Vol]3.7 g/dL3.5 - 5.7 g/dLNOMS HealthcareAlbumin/Globulin [Mass [...] mmol/LNOMS HealthcareCreatinine (U) [Mass/Vol]1.22 mg/dLHigh0.60 - 1.20 mg/dLNOPA HealthcareCREATININE CLR CALC GXFMAGUR87.86N[facility]S Healthcare GFR/1.73 sq M.predicted MDRD (S/P/Bld) [Vol rate/Area]48.943 mL/min/{1.73_m2} NOMS HealthcareGlobulin (S) [Mass/Vol]2.1 g/dLNOPA HealthcareGlucose [Mass/Vol] 153 mg/ePUira06 - 100 mg/dLNOPA HealthcareComment on above:Random Glucose Reference Range is dependent on time and content of last meal. Glucose of more than 200 mg/dL in a nonstressed, ambulatory subject supports the diagnosis of Diabetes Mellitus. ADA recommended reference range Interpretation and review of laboratory resultsAbnormalNOMS HealthcarePotassium [Moles/Vol]3.1 mmol/LLow3.5 - 5.1 mmol/LNOMS HealthcareProtein [Mass/Vol]5.8 g/dLLow6.4 - 8.9 g/dLNOPA HealthcareSodium [Moles/Vol]142 mmol/L136 - 145 mmol/L [facility] HealthcareUrea nitrogen [Mass/Vol]19 mg/dL7 - 25 mg/dLNOChristian Hospital HealthcareCreatinine [Mass/volume] in Serum or PlasmaOrdered By: Roxane Bills on 71-97-1756Psmybwbiir [Mass/Vol]1.22 mg/dLHigh0.60-1.20Madison HealthComment on above:Performed By: #### CBC, CMP ####[place] [address] USAEosinophils [#/volume] in Blood by Automated countOrdered By: Roxane Bills on 37-58-0246Pqugnzbiwfs (Bld) [#/Vol]0.1 10*3/uLNormal0.0-0.45Madison HealthComment on above:Performed By: #### CBC, CMP ####[place] [address] USAEosinophils/100 leukocytes in Blood by Automated countOrdered By: Roxane Sanju on 34-48-1616Ordxkkoepvh/100 WBC (Bld)3.3 %Normal. Madison HealthComment on above:Performed By: #### CBC, CMP ####[facility] Erythrocyte distribution width [Ratio] by Automated countOrdered By: Roxane Bills on 77-66-2705Eghtjcbipfd distribution width (RBC) [Ratio]16.4 %High11.9-15.3 Madison HealthComment on above:Performed By: #### CBC, CMP ####[place] [address] [address] Erythrocytes [#/volume] in Blood by Automated countOrdered By: Roxane Bills on 43-90-1226ZUK (Bld) [#/Vol]4.05 10*6/uLNormal3.60-5.00Madison HealthComment on above:Performed By: #### CBC, CMP ####[address]Glomerular filtration rate [Volume Rate/Area] in Serum, Plasma or Blood by CreatinineOrdered By: Roxane Bills on 21-97-9870Hakdvooepj filtration rate [Volume Rate/Area] in Serum, Plasma or Blood by Kakqhihgki01.943 mL/MinMadison HealthGlucose [Mass/volume] in Serum or PlasmaOrdered By: Roxane Bills on 53-60-2998Nxhoitq [Mass/Vol]153 mg/yRLaht15-954NawrmnbhxMadison HealthComment on above: Result Comment: Random Glucose Reference Range is dependent on time and content of last meal. Glucose of more than 200 mg/dL in a nonstressed, ambulatory subject supports the diagnosis of Diabetes Mellitus. ADA recommended reference rangePerformed By: #### CBC, CMP ####[facility] [place] [address] USAHematocrit [Volume Fraction] of Blood by Automated countOrdered By: Roxane Bills on 26-21-7777Uvnyychnby (Bld) [Volume fraction]36.9 % Gyvgkp88.0-46.4FClermont County HospitalComment on above:Performed By: #### CBC, CMP ####[address] [address] USAHemoglobin [Mass/volume] in BloodOrdered By: Roxane Bills on 02-18-2025 Hemoglobin (Bld) [Mass/Vol]12.4 g/sWLnonss63.8-15.4FClermont County HospitalComment on above:Performed By: #### CBC, CMP ####[place] [address] USALeukocytes [#/volume] corrected for nucleated erythrocytes in Blood by Automated counOrdered By: Roxane Bills on 33-13-8620BON corrected for nucl RBC Auto (Bld) [#/Vol]4.4 10*3/uL 3.8-11.6FClermont County HospitalLeukocytes [#/volume] in Blood by Automated countOrdered By: Roxane Bills on 26-11-9594CFJ (Bld) [#/Vol]4.4 10*3/uL Normal3.8-11.6FClermont County HospitalComment on above:Performed By: #### CBC, CMP ####[address] [address] USALymphocytes [#/volume] in Blood by Automated countOrdered By: Roxane Bills on 59-99-4484Ndcyvebqedj (Bld) [#/Vol]1.0 10*3/uLNormal1.00-4.8Madison HealthComment on above:Performed By: #### CBC, CMP ####[address] [address] [place] Lymphocytes/100 leukocytes in Blood by Automated countOrdered By: Roxane Bills on 95-51-9797Qyfzeylbpty/100 WBC (Bld)23.4 %Normal.Madison HealthComment on above:Performed By: #### CBC, CMP ####[address] [address] USAMCH [Entitic mass] by Automated countOrdered By: Roxane Bills on 47-90-0014AOL (RBC) [Entitic mass]30.6 dwCdzrmv03.7-34.3FClermont County HospitalComment on above:Performed By: #### CBC, CMP ####[place] [address] [facility] Auto (RBC) [Mass/Vol]Ordered By: Roxane Sanju on 71-83-7475LCWW (RBC) [Mass/Vol]33.6 g/dL32.0-35.0Madison HealthMCV [Entitic volume] by Automated countOrdered By: Roxane Sanju on 05-93-5079NNW (RBC) [Entitic vol]91.1 wHDicvio72-703HtpllleezMadison HealthComment on above: Performed By: #### CBC, CMP ####[place] [address] USAMonocytes [#/volume] in Blood by Automated count Ordered By: Roxane Bills on 02-85-9651Adikognam (Bld) [#/Vol]0.6 10*3/uLNormal 0.0-0.8Madison HealthComment on above:Performed By: #### CBC, CMP ####[place] [address] [place] Monocytes/100 leukocytes in Blood by Automated countOrdered By: Roxane Bills on 25-57-4624Cspirfgah/100 WBC (Bld)13.8 %Normal.[facility] Comment on above:Performed By: #### CBC, CMP ####[place] [address] USANeutrophils [#/volume] in Blood by Automated countOrdered By: Roxane Bills on 95-97-0514Hsiezqodsiw (Bld) [#/Vol]2.6 10*3/uLNormal1.8-7.7FClermont County HospitalComment on above:Performed By: #### CBC, CMP ####[place] [address] USANeutrophils/100 leukocytes in Blood by Automated countOrdered By: Roxane Bills on 62-88-4696Aagqszsmffj/100 WBC (Bld)59.0 %Normal.Madison HealthComment on above:Performed By: #### CBC, CMP ####[place] [address] USANo Panel Information Ordered By: Roxane Bills on 07-33-100521.86[facility] Nucleated erythrocytes [Presence] in Blood by Automated countOrdered By: Roxane Bills on 97-29-0373Fpkhcftpk RBC Auto Ql (Bld)0.1 /100{WBC}0-0.5FClermont County HospitalPlatelet mean volume [Entitic volume] in Blood by Automated countOrdered By: Roxane Bills on 18-75-7162Sutzfzuy mean volume (Bld) [Entitic vol]9.3 fLNormal6.3-10.7FClermont County HospitalComment on above:Performed By: #### CBC, CMP ####[place] [address] USAPlatelets [#/volume] in Blood by Automated count Ordered By: Roxane Bills on 66-48-3974Vffagxcsc (Bld) [#/Vol]82 10*3/jXQwo776-734 Madison HealthComment on above:Performed By: #### CBC, CMP ####[place] [address] [place] Potassium [Moles/volume] in Serum or PlasmaOrdered By: Roxane Bills on 02-18-2025 Potassium [Moles/Vol]3.1 mmol/LLow3.5-5.1FClermont County Hospital Comment on above:Performed By: #### CBC, CMP ####[place] [address] USAProtein [Mass/volume] in Serum or PlasmaOrdered By: Roxane Bills on 42-17-3669Vshqxhd [Mass/Vol]5.8 g/dLLow6.4-8.9 Madison HealthComment on above:Performed By: #### CBC, CMP ####[address] [place] [address] [facility] RANCHOSerum globulin measurement by calculation (mass/volume)Ordered By: Roxane Bills on 89-98-7808Vrqumxid (S) [Mass/Vol]2.1 g/dLNoSt. Mary's Medical Center Comment on above:Performed By: #### CBC, CMP ####[place] [address] USASerum or plasma albumin/globulin mass ratioOrdered By: Roxane Bills on 37-29-4109Mdtpsom/Globulin [Mass ratio]1.8 {ratio} NormalMadison HealthComment on above:Performed By: #### CBC, CMP ####[place] [address] [facility] Serum or plasma anion gap determinationOrdered By: Roxane Bills on 55-10-5947Mfizf gap [Moles/Vol]12.4 mmol/LNormal6.0-15.0Madison HealthComment on above:Performed By: #### CBC, CMP ####[place] [address] USASodium [Moles/volume] in Serum or Plasma Ordered By: Roxane Bills on 53-37-7742Aukbxf [Moles/Vol]142 mmol/AXmljrc634-754 Madison HealthComment on above:Performed By: #### CBC, CMP ####[place] [address] USAUrea nitrogen [Mass/volume] in Serum or PlasmaOrdered By: Roxane Bills on 57-49-2506Wqav nitrogen [Mass/Vol]19 mg/dLNormal7-25Madison HealthComment on above:Performed By: #### CBC, CMP ####[place] [address] USAAlanine aminotransferase [Enzymatic activity/volume] in Serum or PlasmaOrdered By: Roxane Bills on 50-49-8051CVB [Catalytic activity/Vol]25 U/LNormal7-52Madison HealthComment on above:Performed By: #### CBC, CMP ####[address] [address] USAAlbumin [Mass/volume] in Serum or Plasma by Bromocresol green (BCG) dye binding methoOrdered By: Roxane Bills on 02-13-2025 Albumin BCG dye [Mass/Vol]4.1 g/dL3.5-5.7FClermont County Hospital Alkaline phosphatase [Enzymatic activity/volume] in Serum or PlasmaOrdered By: Roxane Bills on 01-19-6481KOS [Catalytic activity/Vol]144 U/SUmqb60-888OyjpbgurqMadison HealthComment on above:Performed By: #### CBC, CMP ####[place] [address] [place] Aspartate aminotransferase [Enzymatic activity/volume] in Serum or PlasmaOrdered By: Roxane Bills on 38-52-9324ALX [Catalytic activity/Vol]19 U/YGkhcos47-37 Madison HealthComment on above:Performed By: #### CBC, CMP ####[place] [address] [place] Basophils [#/volume] in Blood by Automated countOrdered By: Roxane Bills on 94-52-5393Lcisobjgg (Bld) [#/Vol]0.0 10*3/uLNormal0.0-0.2FClermont County HospitalComment on above:Result Comment: PERFORMED BY:[address] [place], [place] [phone] MEDICAL DIRECTORELAINE CHAUDHARY M.D.Performed By: #### CBC, CMP ####[place] [address] USABasophils/100 leukocytes in Blood by Automated countOrdered By: Roxane Bills on 04-70-2471Naitfowpz/100 WBC (Bld)0.2 %Normal.Madison HealthComment on above:Performed By: #### CBC, CMP ####[place] [address] USABilirubin.total [Mass/volume] in Serum or PlasmaOrdered By: Roxane Bills on 93-71-7905Ngypktqlc [Mass/Vol]0.4 mg/dLNormal0.3-1.0Madison HealthComment on above:Performed By: #### CBC, CMP ####[facility] [address] [place] [address] [facility] Auto Differential panel (Bld)on 24-31-9879Qtshtafrd (Bld) [#/Vol]0.0 10*3/uL0.0 - 0.2 10*3/uLNOMS HealthcareBasophils/100 WBC Manual cnt (Syn fld)0.2 %.[facility] HealthcareEosinophils (Bld) [#/Vol]0.1 10*3/uL0.0 - 0.45 10*3/uLNOMS Healthcare Eosinophils/100 WBC Manual cnt (Syn fld)1.9 %.[facility] HealthcareErythrocyte distribution width (RBC) [Ratio]17.0 %High11.9 - 15.3 %NOM HealthcareHematocrit (Bld) [Volume fraction]38.0 %34.0 - 46.4 %NOM HealthcareHemoglobin (Bld) [Mass/Vol]13.0 g/dL11.8 - 15.4 g/dLAMERICAN FORK HOSPITAL HealthcareInterpretation and review of laboratory resultsAbnormalAMERICAN FORK HOSPITAL HealthcareLymphocytes (Bld) [#/Vol]1.5 10*3/uL 1.00 - 4.8 10*3/uLNOMS HealthcareLymphocytes/100 WBC Manual cnt (Syn fld)23.4 %. [facility] CenterMCH (RBC) [Entitic mass]31.4 pg24.7 - 34.3 pgNOKindred HospitalHC (RBC) [Mass/Vol]34.2 g/dL32.0 - 35.0 g/dLHedrick Medical CenterMCV (RBC) [Entitic vol] 91.8 fL80 - 100 fLNOPA HealthcareMonocytes (Bld) [#/Vol]0.7 10*3/uL0.0 - 0.8 10*3/uLNOMS HealthcareMonocytes+Macrophages/100 WBC Manual cnt (Syn fld)10.5 %. [facility]S HealthcareNeutrophils (Bld) [#/Vol]4.1 10*3/uL1.8 - 7.7 10*3/uLNOMS HealthcareNeutrophils/100 WBC Manual cnt (Syn fld)64.0 %.NOMS HealthcareNRBC0.1 /100{WBC}0 - 0.5 /100{WBC}NOMS HealthcarePlatelet mean volume (Bld) [Entitic vol]8.6 fL6.3 - 10.7 fLNOMS HealthcarePlatelets (Bld) [#/Vol]113 10*3/kFZdr527 - 450 10*3/uLNOMS HealthcareRBC LM.HPF (Urine sed) [#/Area]4.14 10*6/uL3.60 - 5.00 10*6/uLNOMS HealthcareWBC (Bld) [#/Vol]6.4 10*3/uL3.8 - 11.6 10*3/uLNOMS HealthcareWBC LM.HPF (Urine sed) [#/Area]6.4 [CFU]/mL3.8 - 11.6 [CFU]/mLNOMS HealthcareNOMS HealthcareCalcium [Mass/volume] in Serum or PlasmaOrdered By: Roxane Bills on 80-62-6834Lwwnpfp [Mass/Vol]8.8 mg/dLNormal8.6-10.3FClermont County HospitalComment on above:Performed By: #### CBC, CMP ####[place] [address] [place] [address] USACarbon dioxide, total [Moles/volume] in Serum or PlasmaOrdered By: Roxane Bills on 87-33-9048ED6 [Moles/Vol]33.0 mmol/LHigh21.0-31.0Madison HealthComment on above:Performed By: #### CBC, CMP ####[place] [address] [place] [id number] USAChloride [Moles/volume] in Serum or PlasmaOrdered By: Roxane Bills on 85-75-0376Ppqbmrsv [Moles/Vol]94 mmol/UMex61-944LdlvjuocrMadison HealthComment on above:Performed By: #### CBC, CMP ####[place] [address] [place] Complete Blood Count Auto Diffon 94-01-1234Jpns Corpuscular HGB Conc34.2 g/dL Qxmbyt22.0-35.0The [facility] Health Physician GroupComment on above:Performed By: #### CBC, CMP ####[place] [address] USANRBC%0.1 /100{WBC}Normal0-0.5The [facility] Physician [facility] Medical CenterComment on above: Performed By: #### CBC, CMP ####[place] [address] USAWhite Blood Count6.4 [CFU]/mLNormal3.8-11.6[facility] Medical CenterComment on above:Performed By: #### CBC, CMP ####[place] [address] [facility] Comprehensive Metabolic Panelon 98-89-9831Czuqshz [Mass/Vol]4.1 g/dLNormal 3.5-5.7The [facility] Health Physician GroupComment on above:Performed By: #### CBC, CMP ####[place] [address] [facility] Creatinine Clr Calc Pbkzzwiw36.21NormCleveland Clinic [facility] Physician [facility] Medical CenterComment on above:Result Comment: PERFORMED BY:[address] [place], [place] [phone] MEDICAL LEESA CHAUDHARY M.D.Performed By: #### CBC, CMP ####[place] [address] USAGFR/1.73 sq M.predicted MDRD (S/P/Bld) [Vol rate/Area]45.774 mL/min/{1.73_m2}NormalThe [facility] Physician [facility] CenterComment on above:Performed By: #### CBC, CMP ####[place] [address] [facility]CHOComprehensive metabolic panelon 65-07-8706Nifcbyd [Mass/Vol]4.1 g/dL3.5 - 5.7 g/dLNOMS HealthcareAlbumin/Globulin [Mass ratio]1.4 {ratio}[facility] HealthcareALP [Catalytic activity/Vol]144 U/LHigh34 - 104 U/LNOMS HealthcareALT [Catalytic activity/Vol]25 U/L7 - 52 U/LNOMS HealthcareAnion gap [Moles/Vol]13.5 mmol/L6.0 - 15.0NOMS HealthcareAST [Catalytic activity/Vol]19 U/L13 - 39 U/LNOMS HealthcareBilirubin [Mass/Vol]0.4 mg/dL0.3 - 1.0 mg/dLNOMS HealthcareCalcium [Mass/Vol]8.8 mg/dL8.6 - 10.3 mg/dLNOMS HealthcareChloride [Moles/Vol]94 mmol/LLow98 - 107 mmol/LNOMS HealthcareCO2 [Moles/Vol]33.0 mmol/L High21.0 - 31.0 mmol/LNOMS HealthcareCreatinine (U) [Mass/Vol]1.29 mg/dLHigh0.60 - 1.20 mg/dLNOMS HealthcareCREATININE CLR CALC LIVJUKXO66.21[facility] GFR/1.73 sq M.predicted MDRD (S/P/Bld) [Vol rate/Area]45.774 mL/min/{1.73_m2} [facility] HealthcareGlobulin (S) [Mass/Vol]3.0 g/dLNOPA HealthcareGlucose [Mass/Vol] 355 mg/fDObjq12 - 100 mg/dLNOPA HealthcareComment on above:Random Glucose Reference Range is [...] HealthcareUrea nitrogen [Mass/Vol]21 mg/dL7 - 25 mg/dLNOMS HealthcareNOPA HealthcareCreatinine [Mass/volume] in Serum or PlasmaOrdered By: Roxane Bills on 72-58-1454Cdjuckvmtx [Mass/Vol]1.29 mg/dLHigh0.60-1.20Madison HealthComment on above:Performed By: #### CBC, CMP ####[place] [address] USAEosinophils [#/volume] in Blood by Automated countOrdered By: Roxane Bills on 30-94-1963Njvnehfyfql (Bld) [#/Vol]0.1 10*3/uLNormal0.0-0.45Mad[facility] HealthComment on above:Performed By: #### CBC, CMP ####[place] [address] USAEosinophils/100 leukocytes in Blood by Automated countOrdered By: Roxane Bills on 38-61-7917Orzbdexmxhj/100 WBC (Bld)1.9 %Normal. Madison HealthComment on above:Performed By: #### CBC, CMP ####[address] Erythrocyte distribution width [Ratio] by Automated countOrdered By: Roxane Bills on 77-67-4044Kkqfkrvfskj distribution width (RBC) [Ratio]17.0 %High11.9-15.3 Madison HealthComment on above:Performed By: #### CBC, CMP ####[place] [address] [place] Erythrocytes [#/volume] in Blood by Automated countOrdered By: Roxane Bills on 69-09-2544ZIC (Bld) [#/Vol]4.14 10*6/uLNormal3.60-5.00Madison HealthComment on above:Performed By: #### CBC, CMP ####[place] [address] USAGlomerular filtration rate [Volume Rate/Area] in Serum, Plasma or Blood by CreatinineOrdered By: Roxane Bills on 96-36-2960Ydpnlppcvz filtration rate [Volume Rate/Area] in Serum, Plasma or Blood by Uxdweoaqoq67.774 mL/MinMadison HealthGlucose [Mass/volume] in Serum or PlasmaOrdered By: Roxane Bills on 93-38-4014Khuedza [Mass/Vol]355 mg/fEKspw44-506FytnrnffpMadison HealthComment on above: Result Comment: Random Glucose Reference Range is dependent on time and content of last meal. Glucose of more than 200 mg/dL in a nonstressed, ambulatory subject supports the diagnosis of Diabetes Mellitus. ADA recommended reference rangePerformed By: #### CBC, CMP ####[address] [address] USAHematocrit [Volume Fraction] of Blood by Automated countOrdered By: Roxane Bills on 88-85-2921Dpapmowfdu (Bld) [Volume fraction]38.0 % Czgtkv95.0-46.4FClermont County HospitalComment on above:Performed By: #### CBC, CMP ####[place] [address] USAHemoglobin [Mass/volume] in BloodOrdered By: Roxane Bills on 02-13-2025 Hemoglobin (Bld) [Mass/Vol]13.0 g/eGTynqgf78.8-15.4FClermont County HospitalComment on above:Performed By: #### CBC, CMP ####[place] [address] USALeukocytes [#/volume] corrected for nucleated erythrocytes in Blood by Automated counOrdered By: Roxane Bills on 42-75-7562XRX corrected for nucl RBC Auto (Bld) [#/Vol]6.4 10*3/uL 3.8-11.6FClermont County HospitalLeukocytes [#/volume] in Blood by Automated countOrdered By: Roxane Bills on 30-29-8749THI (Bld) [#/Vol]6.4 10*3/uL Normal3.8-11.6FClermont County HospitalComment on above:Performed By: #### CBC, CMP ####[address] [address] USALymphocytes [#/volume] in Blood by Automated countOrdered By: Roxane Bills on 90-19-1974Kqgdsdyuzri (Bld) [#/Vol]1.5 10*3/uLNormal1.00-4.8Madison HealthComment on above:Performed By: #### CBC, CMP ####[place] [address] [facility] Lymphocytes/100 leukocytes in Blood by Automated countOrdered By: Roxane Bills on 21-40-5425Wamsgehwuiw/100 WBC (Bld)23.4 %Normal.Madison HealthComment on above:Performed By: #### CBC, CMP ####[address] [Entitic mass] by Automated countOrdered By: Roxane Bills on 82-76-4142MUJ (RBC) [Entitic mass]31.4 clIacchu18.7-34.3FClermont County HospitalComment on above:Performed By: #### CBC, CMP ####[place] [address] [facility] Auto (RBC) [Mass/Vol]Ordered By: Roxane Bills on 51-19-5826WWHL (RBC) [Mass/Vol]34.2 g/dL32.0-35.0M[facility]letown HospitalV [Entitic volume] by Automated countOrdered By: Roxane Bills on 73-16-2661CHP (RBC) [Entitic vol]91.8 nBZjzofy24-977XjxmrojrcMadison HealthComment on above: Performed By: #### CBC, CMP ####[place] [address] USAMonocytes [#/volume] in Blood by Automated count Ordered By: Roxane Bills on 64-80-8328Zuzzvvjhi (Bld) [#/Vol]0.7 10*3/uLNormal 0.0-0.8Madison HealthComment on above:Performed By: #### CBC, CMP ####[place] [address] [place] Monocytes/100 leukocytes in Blood by Automated countOrdered By: Roxane Bills on 50-13-5286Urybizztm/100 WBC (Bld)10.5 %Normal.[facility] Comment on above:Performed By: #### CBC, CMP ####[place] [address] USANeutrophils [#/volume] in Blood by Automated countOrdered By: Roxane Bills on 96-26-3715Rrqhrccmxoj (Bld) [#/Vol]4.1 10*3/uLNormal1.8-7.7FClermont County HospitalComment on above:Performed By: #### CBC, CMP ####[place] [address] USANeutrophils/100 leukocytes in Blood by Automated countOrdered By: Roxane Sanju on 54-19-7628Chufsazmdvw/100 WBC (Bld)64.0 %Normal.[facility]ison HealthComment on above:Performed By: #### CBC, CMP ####[place] [address] USANo Panel Information Ordered By: Roxane Garibayse on 11-64-780302.21[facility] Nucleated erythrocytes [Presence] in Blood by Automated countOrdered By: Roxane Garibayse on 38-02-4864Fwoaddrfn RBC Auto Ql (Bld)0.1 /100{WBC}0-0.5FClermont County HospitalPlatelet mean volume [Entitic volume] in Blood by Automated countOrdered By: Roxane Bills on 44-08-6838Xjlstlun mean volume (Bld) [Entitic vol]8.6 fLNormal6.3-10.7FClermont County HospitalComment on above:Performed By: #### CBC, CMP ####[place] [address] USAPlatelets [#/volume] in Blood by Automated count Ordered By: Roxane Bills on 62-70-3256Wqrwtqrxd (Bld) [#/Vol]113 10*3/xKGzc080-715 [facility] HealthComment on above:Performed By: #### CBC, CMP ####[address] [address] [place] Potassium [Moles/volume] in Serum or PlasmaOrdered By: Roxane Bills on 02-13-2025 Potassium [Moles/Vol]3.5 mmol/LNormal3.5-5.1FClermont County Hospital Comment on above:Performed By: #### CBC, CMP ####[place] [address] USAProtein [Mass/volume] in Serum or PlasmaOrdered By: Roxane Bills on 98-16-9056Ilnbavp [Mass/Vol]7.1 g/dLNormal6.4-8.9 [facility] HealthComment on above:Performed By: #### CBC, CMP ####[place] [address] USASerum globulin measurement by calculation (mass/volume)Ordered By: Roxane Bills on 90-57-3197Xadndnuu (S) [Mass/Vol]3.0 g/dLMercy Health Comment on above:Performed By: #### CBC, CMP ####[place] [address] USASerum or plasma albumin/globulin mass ratioOrdered By: Roxane Bills on 79-41-6024Qyhnleh/Globulin [Mass ratio]1.4 {ratio} NormalMadison HealthComment on above:Performed By: #### CBC, CMP ####[address] Serum or plasma anion gap determinationOrdered By: Roxane Bills on 63-76-3672Yazpf gap [Moles/Vol]13.5 mmol/LNormal6.0-15.0Mad[facility] HealthComment on above:Performed By: #### CBC, CMP ####[place] [address] USASodium [Moles/volume] in Serum or Plasma Ordered By: Roxane Bills on 79-72-7821Cwhzit [Moles/Vol]137 mmol/IHyedur508-607 [facility] HealthComment on above:Performed By: #### CBC, CMP ####[facility] [place] [address] USAThyroid Stim Hormone w/Rflxon 86-79-6800Zlvspvj Stim Hormone w/Rflx3.06 u[iU]/mLNormal 0.45-5.33The [facility] Health Physician GroupComment on above:Result Comment: PERFORMED BY:[address] [place], [place] [phone] MEDICAL DIRECTORELAINE CHAUDHARY M.D.Performed By: #### TSH3 wRFLX ####[address] [place] [place], [place] [address]IHN Thyrotropin [Units/volume] in Serum or PlasmaOrdered By: Peri Tyson on 51-30-3594AFF Qn3.06 m[IU]/L0.45-5.33Mad[facility] HealthUrea nitrogen [Mass/volume] in Serum or PlasmaOrdered By: Roxane Bills on 27-75-5886Aymf nitrogen [Mass/Vol]21 mg/dLNormal-Madison HealthComment on above:Performed By: #### CBC, CMP ####[id number] [place] [address] USAPROTEIN ELECTRO, RANDOM URINEon 02-08-2025 ALBUMIN, URINE30.9 %.[facility] FlxqtiuiwqFQQEH-6-YPLSLYKO, URINE2.8 %.[facility] ZCXIR-8-LUORNJIE, URINE11.3 %.[facility] HealthcareBETA GLOBULIN, URINE33.8 %.[facility] HealthcareGAMMA GLOBULIN, URINE21.1 %.[facility] HealthcareM-SPIKE %Not ObservedNot Observed %[facility] HealthcarePLEASE NOTE:Comment.[facility]S HealthcareComment on above: Protein electrophoresis scan will follow via computer, mail, or butt maker delivery. Performed at: [address] [id number] [employer] Hand: Jhoan Rich PhD, Phone: [phone] Protein (U) [Mass/Vol]9.9 mg/dLNot Estab.[facility] HealthcareNOSt. [facility] Hospital24 hour urine albumin/total protein ratio by electrophoresisOrdered By: Roxane Bills on 73-13-5095Wgvehxr Elph (24H U) [Mass fraction]30.9 %.[facility]24 hour urine gamma globulin/total protein ratio by electrophoresisOrdered By: Roxane Bills on 98-59-2985Mxxol globulin Elph (24H U) [Mass fraction]21.1 %. [facility]24 hour urine protein monoclonal/total protein by electrophoresisOrdered By: Roxane Bills on 99-79-4511Kwytjde.monoclonal Elph (24H U) [Mass fraction]Not observed %Not ObservedMadison HealthAlanine aminotransferase [Enzymatic activity/volume] in Serum or Plasmaon 40-54-5785QVK [Catalytic activity/Vol]33 U/LNormal7-52NOMS HealthcareComment on above:Performed By: #### CBC, CMP, LDH ####[place] [address] [place]#### SPE, UPE RAND, MITCH SERUM, KAPPA ####[facility] ,Albumin [Mass/volume] in Serum or Plasma by Bromocresol green (BCG) dye binding methoOrdered By: Roxane Bills on 02-06-2025 Albumin BCG dye [Mass/Vol]3.8 g/dL3.5-5.7FClermont County Hospital Alkaline phosphatase [Enzymatic activity/volume] in Serum or Plasmaon 02-06-2025 ALP [Catalytic activity/Vol]169 U/NTjeb60-548PZPE HealthcareComment on above: Performed By: #### CBC, CMP, LDH ####[place] [address] [place]#### SPE, UPE RAND, MITCH SERUM, KAPPA ####[facility] ,Aspartate aminotransferase [Enzymatic activity/volume] in Serum or Plasmaon 77-54-3068EGI [Catalytic activity/Vol]24 U/MTsogag61-30[facility] Comment on above:Performed By: #### CBC, CMP, LDH ####[place] [address] [place]#### SPE, UPE RAND, MITCH SERUM, KAPPA ####[facility] ,Basophils [#/volume] in Blood by Automated count Ordered By: Roxane Bills on 58-69-8382Nowdajivj (Bld) [#/Vol]0.0 10*3/uLNormal 0.0-0.2FClermont County HospitalComment on above:Result Comment: PERFORMED BY:[address] [place], [place] [id number] MEDICAL DIRECTORELAINE CHAUDHARY M.D.Performed By: #### CBC, CMP, LDH ####[address]#### SPE, UPE RAND, MITCH SERUM, KAPPA ####[facility] , Basophils/100 leukocytes in Blood by Automated countOrdered By: Roxane Bills on 60-34-5726Eshgmurid/100 WBC (Bld)0.2 %Normal.[facility] Comment on above:Performed By: #### CBC, CMP, LDH ####[address]#### SPE, UPE RAND, MITCH SERUM, KAPPA ####[facility] ,Bilirubin.total [Mass/volume] in Serum or Plasmaon 80-69-6677Hvuwknmsu [Mass/Vol]0.3 mg/dLNormal0.3-1.0NOMS HealthcareComment on above:Performed By: #### CBC, CMP, LDH ####[address]#### SPE, UPE RAND, MITCH SERUM, KAPPA ####[facility] ,CBC W Auto Differential panel (Bld)on 02-06-2025 Basophils (Bld) [#/Vol]0.0 10*3/uL0.0 - 0.2 10*3/uLNOMS HealthcareBasophils/100 WBC Manual cnt (Syn fld)0.2 %.NOMS HealthcareEosinophils (Bld) [#/Vol]0.0 10*3/uL0.0 - 0.45 10*3/uLNOMS HealthcareEosinophils/100 WBC Manual cnt (Syn fld) 0.2 %.[facility] CenterErythrocyte distribution width (RBC) [Ratio]19.1 %High11.9 - 15.3 %[facility] HealthcareHematocrit (Bld) [Volume fraction]35.1 %34.0 - 46.4 %[facility] CenterHemoglobin (Bld) [Mass/Vol]11.9 g/dL11.8 - 15.4 g/dLAMERICAN FORK HOSPITAL Healthcare Lymphocytes (Bld) [#/Vol]2.3 10*3/uL1.00 - 4.8 10*3/uLNOMS Healthcare Lymphocytes/100 WBC Manual cnt (Syn fld)33.1 %.[facility] CenterMCH (RBC) [Entitic mass]31.7 pg24.7 - 34.3 pgNevada Regional Medical CenterHC (RBC) [Mass/Vol]33.9 g/dL32.0 - 35.0 g/dLHedrick Medical CenterMCV (RBC) [Entitic vol]93.4 fL80 - 100 fLAMER[facility] FORK [facility]OSP[facility] Healthcare Monocytes (Bld) [#/Vol]0.8 10*3/uL0.0 - 0.8 10*3/uLNOPA Healthcare Monocytes+Macrophages/100 WBC Manual cnt (Syn fld)11.6 %.[facility] Neutrophils (Bld) [#/Vol]3.8 10*3/uL1.8 - 7.7 10*3/uLNOMS Healthcare Neutrophils/100 WBC Manual cnt (Syn fld)54.9 %.[facility] HealthcareNRBC0.1 /100{WBC}0 - 0.5 /100{WBC}[facility] HealthcarePlatelet mean volume (Bld) [Entitic vol]9.1 fL6.3 - 10.7 fLAMERICAN FORK HOSPITAL HealthcarePlatelets (Bld) [#/Vol]110 10*3/bHRiy329 - 450 10*3/uL [facility] CenterRBC LM.HPF (Urine sed) [#/Area]3.76 10*6/uL3.60 - 5.00 10*6/uL [facility] HealthcareWBC (Bld) [#/Vol]7.0 10*3/uL3.8 - 11.6 10*3/uLNOMS HealthcareWBC LM.HPF (Urine sed) [#/Area]7.0 [CFU]/mL3.8 - 11.6 [CFU]/mLNOMS HealthcareCalcium [Mass/volume] in Serum or Plasmaon 33-14-9448Layxpnb [Mass/Vol]8.3 mg/dLLow 8.6-10.3NOMS HealthcareComment on above:Performed By: #### CBC, CMP, LDH ####[address]#### SPE, UPE RAND, MITCH SERUM, KAPPA ####[facility] ,Carbon dioxide, total [Moles/volume] in Serum or Plasmaon 16-84-8163AZ0 [Moles/Vol]30.0 mmol/LNormal 21.0-31.0NOMS HealthcareComment on above:Performed By: #### CBC, CMP, LDH ####[address]#### SPE, UPE RAND, MITCH SERUM, KAPPA ####[facility] ,Chloride [Moles/volume] in Serum or Plasmaon 03-14-5326Mbsxoqzp [Moles/Vol]99 mmol/L Bxlepf11-210MMWQ HealthcareComment on above:Performed By: #### CBC, CMP, LDH ####[address]#### SPE, UPE RAND, MITCH SERUM, KAPPA ####[facility] ,Complete Blood Count Auto Diffon 51-18-1389Yxas Corpuscular HGB Conc33.9 g/jLGxdhfw98.0-35.0The [facility] Physician GroupComment on above:Performed By: #### CBC, CMP, LDH ####[address]#### SPE, UPE RAND, MITCH SERUM, KAPPA ####[facility] ,NRBC%0.1 /100{WBC} Normal0-0.5The [facility] Health Physician GroupComment on above:Performed By: #### CBC, CMP, LDH ####[address]#### SPE, UPE RAND, MITCH SERUM, KAPPA ####[facility] ,White Blood Count7.0 [CFU]/mLNormal3.8-11.6The [facility] Health Physician GroupComment on above: Performed By: #### CBC, CMP, LDH ####[address]#### SPE, UPE RAND, MITCH SERUM, KAPPA ####[facility] ,Comprehensive Metabolic Panelon 36-39-4044Fjkcmih [Mass/Vol]3.8 g/dLNormal3.5-5.7NOPA HealthcareComment on above:Performed By: #### CBC, CMP, LDH ####[address]#### SPE, UPE RAND, MITCH SERUM, KAPPA ####[facility] ,CREATININE CLR CALC MWOPQYAN01.13NormalNOPA HealthcareComment on above:Performed By: #### CBC, CMP, LDH ####[address]#### SPE, UPE RAND, MITCH SERUM, KAPPA ####[facility] ,GFR/1.73 sq M.predicted MDRD (S/P/Bld) [Vol rate/Area]49.429 mL/min/{1.73_m2}NormalNOPA HealthcareComment on above:Performed By: #### CBC, CMP, LDH ####[place] [address] [place]#### SPE, UPE RAND, MITCH SERUM, KAPPA ####[facility] ,Comprehensive metabolic panelon 89-43-0856Jxscnrducc (U) [Mass/Vol]1.21 mg/dLHigh0.60 - 1.20 mg/dLNOPA HealthcareCreatinine [Mass/volume] in Serum or PlasmaOrdered By: Roxane Bills on 00-58-8655Ivsuqfasfy [Mass/Vol]1.21 mg/dLHigh0.60-1.20[facility] HealthComment on above:Performed By: #### CBC, CMP, LDH ####[address]#### SPE, UPE RAND, MITCH SERUM, KAPPA ####[facility] ,Eosinophils [#/volume] in Blood by Automated countOrdered By: Roxane Bills on 25-15-7286Cctrlegfpgn (Bld) [#/Vol]0.0 10*3/uL Normal0.0-0.45[facility] HealthComment on above:Performed By: #### CBC, CMP, LDH ####[address]#### SPE, UPE RAND, MITCH SERUM, KAPPA ####[facility] , Eosinophils/100 leukocytes in Blood by Automated countOrdered By: Roxane Bills on 59-98-7790Ozmqjglafov/100 WBC (Bld)0.2 %Normal.[facility] Comment on above:Performed By: #### CBC, CMP, LDH ####[place] [address] [place]#### SPE, UPE RAND, MITCH SERUM, KAPPA ####[facility] ,Erythrocyte distribution width [Ratio] by Automated countOrdered By: Roxane Bills on 68-49-3992Yzdrwwekzmt distribution width (RBC) [Ratio]19.1 %High11.9-15.3FClermont County HospitalComment on above: Performed By: #### CBC, CMP, LDH ####[place] [address] [place]#### SPE, UPE RAND, MITCH SERUM, KAPPA ####[facility] ,Erythrocytes [#/volume] in Blood by Automated countOrdered By: Roxane Bills on 06-97-4782XJL (Bld) [#/Vol]3.76 10*6/uLNormal3.60-5.00[facility] HealthComment on above:Performed By: #### CBC, CMP, LDH ####[address]#### SPE, UPE RAND, MITCH SERUM, KAPPA ####[facility] ,Free K+L LT Chains, Qn, Son 16-46-6501Pryr [place] Light Chains, S36.1 mg/LNormal3.3-19.4The [facility] Physician GroupComment on above:Performed By: #### CBC, CMP, LDH ####[address]#### SPE, UPE RAND, MITCH SERUM, KAPPA ####[facility] ,Free Lambda Light Chains, S16.2 mg/L Normal5.7-26.3The [facility] Health Physician GroupComment on above:Performed By: #### CBC, CMP, LDH ####[address]#### SPE, UPE RAND, MITCH SERUM, KAPPA ####[facility] , [place]/Lambda Ratio, S2.40Ggcgbp7.26-1.65The [facility] Physician [facility] Montgomery Va Medical CenterComment on above:Result Comment: Performed at: - [facility] [id number] Pan Washer Hand: Jhoan Rich PhD, Phone: [phone] BY:[address] [phone] MEDICAL DIRECTORELAINE CHAUDHARY M.D.Performed By: #### CBC, CMP, LDH ####[place] [address] [place]#### SPE, UPE RAND, MITCH SERUM, KAPPA ####[facility] ,Glomerular filtration rate [Volume Rate/Area] in Serum, Plasma or Blood by CreatinineOrdered By: Roxane Bills on 82-58-0487Jmnvwkgtuq filtration rate [Volume Rate/Area] in Serum, Plasma or Blood by Zbcjpbiqgh27.429 mL/MinMadison HealthGlucose [Mass/volume] in Serum or Plasmaon 02-06-2025 Glucose [Mass/Vol]485 mg/qYEymi99-948ITKQ HealthcareComment on above:Random Glucose Reference Range is [...] reference rangePerformed By: #### CBC, CMP, LDH ####[facility] [place] [address] [place]#### SPE, UPE RAND, MITCH SERUM, KAPPA ####[facility] ,Hematocrit [Volume Fraction] of Blood by Automated countOrdered By: Roxane Bills on 61-44-3716Ywssgzfbkg (Bld) [Volume fraction]35.1 % Iiejwf59.0-46.4FClermont County HospitalComment on above:Performed By: #### CBC, CMP, LDH ####[address] [place] [address] [place]#### SPE, UPE RAND, MITCH SERUM, KAPPA ####[facility] , Hemoglobin [Mass/volume] in BloodOrdered By: Roxane Bills on 99-29-6935Qmssmvimci (Bld) [Mass/Vol]11.9 g/fUNzwbwo41.8-15.4FClermont County HospitalComment on above:Performed By: #### CBC, CMP, LDH ####[place] [address] [place]#### SPE, UPE RAND, MITCH SERUM, KAPPA ####[facility] ,Immunofixation,Serumon 77-59-1743Gkzejgwcjkbaxg, Serum CommentCritically abnormal.The [facility] Health Physician GroupComment on above:Result Comment: 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 PLEASE NOTE: Samples from patients receiving DARZALEX(R) (daratumumab) or SARCLISA(R)(isatuximab-irfc) treatment can appear as an IgG kappa and mask a complete response (CR). If this patient is receiving these therapies, this MITCH assay interference can be removed by ordering test number 161533- Immunofixation, Daratumumab-Specific, Serum or 348812- Immunofixation, Isatuximab-Specific, Serum and submitting a new sample for testing or by calling the lab to add this test to the current sample.Performed By: #### CBC, CMP, LDH ####[address]#### SPE, UPE RAND, MITCH SERUM, KAPPA ####[facility] ,Immunoglobulin A, Nawsi921 mg/oNMeacfz29-317Zla [facility] Physician GroupComment on above: Performed By: #### CBC, CMP, LDH ####[place] [address] [place]#### SPE, UPE RAND, MITCH SERUM, KAPPA ####[facility] ,Immunoglobulin G780 mg/cJEzfskg552-1314Sny [facility] Physician GroupComment on above:Performed By: #### CBC, CMP, LDH ####[address]#### SPE, UPE RAND, MITCH SERUM, KAPPA ####[facility] ,Immunoglobulin M, Serum33 mg/nDYujwel04-928Rsj [facility] Physician GroupComment on above:Result Comment: Performed at: - [facility] [id number] Pan Washer Hand: Jhoan Rich PhD, Phone: [phone] By: #### CBC, CMP, LDH ####[place] [address] [place]#### SPE, UPE RAND, MITCH SERUM, KAPPA ####[facility] ,LDH Lactate Dehydrogenaseon 34-59-2186BHA LACTATE KPVBMKHURBWYG935 U/RArzxqb248-670OGIA HealthcareComment on above:Result Comment: PERFORMED BY:[address] [place], [place] [phone] MEDICAL DIRECTORELAINE CHAUDHARY M.D.Performed By: #### CBC, CMP, LDH ####[address]#### SPE, UPE RAND, MITCH SERUM, KAPPA ####[facility] ,Lactate dehydrogenase [Enzymatic activity/volume] in Serum or Plasma by Lactate to pyOrdered By: Roxane Bills on 94-57-3258UAP Lactate to pyruvate reaction [Catalytic activity/Vol]197 U/C723-134PokdpumvzMadison HealthLeukocytes [#/volume] corrected for nucleated erythrocytes in Blood by Automated counOrdered By: Roxane Bills on 87-55-1065UTK corrected for nucl RBC Auto (Bld) [#/Vol]7.0 10*3/uL3.8-11.6FClermont County Hospital Leukocytes [#/volume] in Blood by Automated countOrdered By: Roxane Bills on 29-63-8379UTN (Bld) [#/Vol]7.0 10*3/uLNormal3.8-11.6FClermont County HospitalComment on above:Performed By: #### CBC, CMP, LDH ####[place] [address] [place]#### SPE, UPE RAND, MITCH SERUM, KAPPA ####[facility] ,Lymphocytes [#/volume] in Blood by Automated countOrdered By: Roxane Bills on 56-73-4938Hvirizsjnvl (Bld) [#/Vol]2.3 10*3/uL Normal1.00-4.8Mad[facility] HealthComment on above:Performed By: #### CBC, CMP, LDH ####[place] [address] [place]#### SPE, UPE RAND, MITCH SERUM, KAPPA ####[facility] , Lymphocytes/100 leukocytes in Blood by Automated countOrdered By: Roxane Sanju on 90-22-5900Cmobbexvvsu/100 WBC (Bld)33.1 %Normal.[facility] HealthComment on above:Performed By: #### CBC, CMP, LDH ####[place] [address]#### SPE, UPE RAND, MITCH SERUM, KAPPA ####[facility] ,MCH [Entitic mass] by Automated countOrdered By: Roxane Sanju on 15-14-2699RUW (RBC) [Entitic mass]31.7 pgSdttcm60.7-34.3 [facility] HealthComment on above:Performed By: #### CBC, CMP, LDH ####[address]#### SPE, UPE RAND, MITCH SERUM, KAPPA ####[facility] ,MCHC Auto (RBC) [Mass/Vol]Ordered By: Roxane Bills on 48-06-8213SDCB (RBC) [Mass/Vol]33.9 g/dL32.0-35.0[facility] HealthMCV [Entitic volume] by Automated countOrdered By: Roxane Bills on 12-09-1457GMH (RBC) [Entitic vol]93.4 fLNormal 80-100[facility] HealthComment on above:Performed By: #### CBC, CMP, LDH ####[address]#### SPE, UPE RAND, MITCH SERUM, KAPPA ####[facility] ,Monocytes [#/volume] in Blood by Automated countOrdered By: Roxane Bills on 02-06-2025 Monocytes (Bld) [#/Vol]0.8 10*3/uLNormal0.0-0.8[facility] Comment on above:Performed By: #### CBC, CMP, LDH ####[place] [address] [place]#### SPE, UPE RAND, MITCH SERUM, KAPPA ####[facility] ,Monocytes/100 leukocytes in Blood by Automated count Ordered By: Roxane Bills on 21-50-9791Qagfkdbtd/100 WBC (Bld)11.6 %Normal.[facility] HealthComment on above:Performed By: #### CBC, CMP, LDH ####[place] [address] [place]#### SPE, UPE RAND, MITCH SERUM, KAPPA ####[facility] ,Neutrophils [#/volume] in Blood by Automated countOrdered By: Roxane Bills on 72-42-1772Mxyzvzruypt (Bld) [#/Vol]3.8 10*3/uLNormal1.8-7.7FClermont County HospitalComment on above:Performed By: #### CBC, CMP, LDH ####[place] [address] [place]#### SPE, UPE RAND, MITCH SERUM, KAPPA ####[facility] ,Neutrophils/100 leukocytes in Blood by Automated count Ordered By: Roxane Bills on 90-16-0205Poczwhfwuaq/100 WBC (Bld)54.9 %Normal. [facility] HealthComment on above:Performed By: #### CBC, CMP, LDH ####[place] [address] [place]#### SPE, UPE RAND, MITCH SERUM, KAPPA ####[facility] ,No Panel Informationon 77-28-4134Bfmzytvbocriyg and review of laboratory resultsAbnormal [facility] Panel InformationOrdered By: Roxane Bills on .13Madison HealthComment: g/dLNot Observed Madison HealthComment.[facility] Nucleated erythrocytes [Presence] in Blood by Automated countOrdered By: Roxane Bills on 32-69-7668Ixieovzjm RBC Auto Ql (Bld)0.1 /100{WBC}0-0.5FClermont County HospitalPlatelet mean volume [Entitic volume] in Blood by Automated countOrdered By: Roxane Bills on 41-34-4567Yflfjhph mean volume (Bld) [Entitic vol]9.1 fLNormal6.3-10.7FClermont County HospitalComment on above:Performed By: #### CBC, CMP, LDH ####[address]#### SPE, UPE RAND, MITCH SERUM, KAPPA ####[facility] ,Platelets [#/volume] in Blood by Automated count Ordered By: Roxane Bills on 47-32-0599Fjnrswluf (Bld) [#/Vol]110 10*3/xIKlw895-798 [facility] HealthComment on above:Performed By: #### CBC, CMP, LDH ####[address]#### SPE, UPE RAND, MITCH SERUM, KAPPA ####[facility] ,Potassium [Moles/volume] in Serum or Plasmaon 40-33-3461Sunhstbhe [Moles/Vol]4.0 mmol/L Normal3.5-5.1NOMS HealthcareComment on above:Performed By: #### CBC, CMP, LDH ####[address]#### SPE, UPE RAND, MITCH SERUM, KAPPA ####[facility] ,Protein Electro, Random Urineon 60-17-1338Tworbpj, Urine30.9 %Normal.The [facility] Physician GroupComment on above:Performed By: #### CBC, CMP, LDH ####[place] [address] [place]#### SPE, UPE RAND, MITCH SERUM, KAPPA ####[facility] ,Dhtom-3-Hjmazlsb, Urine2.8 %Normal.The [facility] Health Physician GroupComment on above:Performed By: #### CBC, CMP, LDH ####[id number] [place]#### SPE, UPE RAND, MITCH SERUM, KAPPA ####[facility] ,Jbkio-0-Aghblvrk, Urine11.3 %Normal.The [facility] Health Physician GroupComment on above:Performed By: #### CBC, CMP, LDH ####[place] [address] [place]#### SPE, UPE RAND, MITCH SERUM, KAPPA ####[facility] ,Beta Globulin, Urine33.8 %Normal.The [facility] Health Physician GroupComment on above: Performed By: #### CBC, CMP, LDH ####[address]#### SPE, UPE RAND, MITCH SERUM, KAPPA ####[facility] ,Gamma Globulin, Urine21.1 %Normal.[facility] Comment on above:Performed By: #### CBC, CMP, LDH ####[place] [address] [place]#### SPE, UPE RAND, MITCH SERUM, KAPPA ####[facility] ,M-Damien %Not ObservedNormalNot ObservedThe [facility] Health Physician GroupComment on above:Performed By: #### CBC, CMP, LDH ####[place] [address] [place]#### SPE, UPE RAND, MITCH SERUM, KAPPA ####[facility] ,Please Note:CommentNormal.The [facility] Health Physician GroupComment on above:Result Comment: Protein electrophoresis scan will follow via computer, mail, or butt maker delivery. Pe rformed at: [facility] [id number] Pan Washer Hand: Jhoan Rich PhD, Phone: [phone] BY:[address]Jose[place], [place] [phone] MEDICAL DIRECTORELAINE CHAUDHARY M.D.Performed By: #### CBC, CMP, LDH ####[address]#### SPE, UPE RAND, MITCH SERUM, KAPPA ####[facility] ,Protein Electrophoresis, Serumon 77-02-0632Hswwx-1-Globulin0.2 g/dLNormal0.0-0.4The [facility] Physician GroupComment on above:Performed By: #### CBC, CMP, LDH ####[address]#### SPE, UPE RAND, MITCH SERUM, KAPPA ####[facility] ,Hsmxr-1-Uwfaudcq7.9 g/dLNormal0.4-1.0The [facility] Health Physician GroupComment on above:Performed By: #### CBC, CMP, LDH ####[address]#### SPE, UPE RAND, MITCH SERUM, KAPPA ####[facility] ,Beta Globulin1.1 g/dLNormal0.7-1.3The [facility] Physician GroupComment on above: Performed By: #### CBC, CMP, LDH ####[address]#### SPE, UPE RAND, MITCH SERUM, KAPPA ####[facility] ,Gamma Globulin0.7 g/dLNormal0.4-1.8The [facility] Comment on above:Performed By: #### CBC, CMP, LDH ####[address]#### SPE, UPE RAND, MITCH SERUM, KAPPA ####[facility] ,M-SpikeComment:NormalNot ObservedThe [facility]any Health Physician GroupComment on above:Result Comment: SPE shows asymmetrical gamma. Suggest serum MITCH and free light chain analysis for further evaluation.Performed By: #### CBC, CMP, LDH ####[place] [address]#### SPE, UPE RAND, MITCH SERUM, KAPPA ####[facility] ,SPE-NoteCommentNormal.The [facility] Health Physician GroupComment on above:Result Comment: Protein electrophoresis scan will follow via computer, mail, or butt maker delivery. Performed at: [address] [id number] Pan Washer Hand: Jhoan Rich PhD, Phone: [phone] Performed By: #### CBC, CMP, LDH ####[address]#### SPE, UPE RAND, MITCH SERUM, KAPPA ####[facility] ,Protein [Mass/volume] in Serum or Plasmaon 22-49-9703Hdcvzjk [Mass/Vol]6.2 g/dLLow6.4-8.9H[facility] Medical CenterComment on above:Performed By: #### CBC, CMP, LDH ####[address]#### SPE, UPE RAND, MITCH SERUM, KAPPA ####[facility] ,Serum free kappa light chain measurementOrdered By: Roxane Bills on 02-06-2025 Immunoglobulin light chains.kappa.free (S) [Mass/Vol]36.1 mg/LHigh3.3-19.4 TriHealtherum globulin measurement (mass/volume)Ordered By: Roxane Bills on 69-05-7575Jhnsjogq (S) [Mass/Vol]2.9 g/dLNormal2.2-3.9 Madison HealthComment on above:Performed By: #### CBC, CMP, LDH ####[address]#### SPE, UPE RAND, MITCH SERUM, KAPPA ####[facility] ,Serum globulin measurement by calculation (mass/volume)on 22-73-4441Viacmdye (S) [Mass/Vol]2.4 g/dLNormalNOPA HealthcareComment on above:Performed By: #### CBC, CMP, LDH ####[address]#### SPE, UPE RAND, MITCH SERUM, KAPPA ####[facility] ,Serum immunoglobulin free kappa light chains/immunoglobulin free lambda light chainsOrdered By: Roxane Bills on 48-87-1726Rlawiqtfknbpsn light chains.kappa.free/Immunoglobulin light chains.lambda.free (S) [Mass ratio]2.67Bhzl0.26-1.65TriHealtherum or plasma IgA measurement (mass/volume)Ordered By: Roxane Bills on 28-23-9864PyI [Mass/Vol]212 mg/zJ43-052YjbbbvnayTriHealtherum or plasma IgG measurement (mass/volume)Ordered By: Roxane Bills on 24-14-8956ImQ [Mass/Vol]780 mg/kV547-9233KbegkzxmmTriHealtherum or plasma IgM measurement (mass/volume)Ordered By: Roxane Bills on 16-61-8161WwQ [Mass/Vol]33 mg/kJ66-349JrejtsswdTriHealtherum or plasma albumin measurement (mass/volume)Ordered By: Roxane Bills on 67-57-1887Quhpdrx [Mass/Vol]3.1 g/dLNormal 2.9-4.4FClermont County HospitalComment on above:Performed By: #### CBC, CMP, LDH ####[address]#### SPE, UPE RAND, MITCH SERUM, KAPPA ####[facility] ,Serum or plasma albumin/globulin mass ratioon 09-12-7430Sxmdpnl/Globulin [Mass ratio]1.6 {ratio}NormalAMERICAN FORK HOSPITAL HealthcareComment on above:Performed By: #### CBC, CMP, LDH ####[address]#### SPE, UPE RAND, MITCH SERUM, KAPPA ####[facility] ,Serum or plasma albumin/globulin mass ratioOrdered By: Roxane Bills on 82-52-5331Vsgedeo/Globulin [Mass ratio]1.1 {ratio}Normal0.7-1.7FClermont County HospitalComment on above:Performed By: #### CBC, CMP, LDH ####[facility]#### SPE, NOAH RAND, MITCH SERUM, KAPPA ####[facility] ,Serum or plasma alpha 1 globulin measurement by electrophoresis (mass/volume)Ordered By: Roxane Bills on 27-04-6180Mlrky 1 globulin Elph [Mass/Vol]0.2 g/dL0.0-0.4FPaulding County Hospitalerum or plasma alpha 2 globulin measurement by electrophoresis (mass/volume)Ordered By: Roxane Sanju on 89-85-1730Fyfrr 2 globulin Elph [Mass/Vol]0.9 g/dL0.4-1.0TriHealtherum or plasma anion gap determinationon 90-52-4026Vqood gap [Moles/Vol]13.0 mmol/LNormal6.0-15.0NOMS HealthcareComment on above: Performed By: #### CBC, CMP, LDH ####[facility]#### DERRICK, NOAH RAND, MITCH SERUM, KAPPA ####[facility] ,Serum or plasma beta globulin measurement by electrophoresis (mass/volume)Ordered By: Roxane Bills on 59-36-8052Taik globulin Elph [Mass/Vol]1.1 g/dL0.7-1.3FPaulding County Hospitalerum or plasma gamma globulin measurement by electrophoresis (mass/volume)Ordered By: Roxane Bills on 02-06-2025 Gamma globulin Elph [Mass/Vol]0.7 g/dL0.4-1.8[facility] Serum or plasma immunoglobulin free lambda light chains measurement (mass/volume)Ordered By: Roxane Bills on 36-44-1521Gfzkqlovmpmqpy light chains.lambda.free [Mass/Vol]16.2 mg/L5.7-.3FClermont County Hospital Serum total protein measurementOrdered By: Roxane Bills on 06-93-0705Jjdosvs [Mass/Vol]6.0 g/dLNormal6.0-8.5FClermont County HospitalComment on above:Performed By: #### CBC, CMP, LDH ####[facility]#### SPE, UPE RAND, MITCH SERUM, KAPPA ####[facility] ,Sodium [Moles/volume] in Serum or Plasmaon 02-06-2025 Sodium [Moles/Vol]138 mmol/YWvweyf573-966GWSM HealthcareComment on above: Performed By: #### CBC, CMP, LDH ####[place] [address]#### SPE, UPE RAND, MITCH SERUM, KAPPA ####[facility] ,Urea nitrogen [Mass/volume] in Serum or Plasmaon 58-52-8030Nldi nitrogen [Mass/Vol]18 mg/dLNormal7-25NOMS HealthcareComment on above:Performed By: #### CBC, CMP, LDH ####[place] [id number] [place] [address] [place]#### SPE, UPE RAND, MITCH SERUM, KAPPA ####[facility] ,Urine alpha 1 globulin/total protein by electrophoresisOrdered By: Roxane Bills on 22-56-2933Qwtxl 1 globulin Elph (U) [Mass fraction]2.8 %.[facility] HealthUrine alpha 2 globulin/total protein ratio by electrophoresisOrdered By: Roxane Bills on 91-21-3400Hftgh 2 globulin Elph (U) [Mass fraction]11.3 %.[facility] HealthUrine beta globulin measurement by electrophoresis (mass/volume)Ordered By: Roxane Bills on 02-06-2025 Beta globulin Elph (U) [Mass/Vol]33.8 %.[facility] HealthUrine protein measurement (mass/volume)Ordered By: Roxane Bills on 76-96-8797Jphgccz (U) [Mass/Vol]9.9 mg/dLNormalNot Estab.Madison HealthComment on above:Performed By: #### CBC, CMP, LDH ####[place] [id number] [facility]#### SPE, UPE RAND, MITCH SERUM, KAPPA ####[facility] ,Anisocytosis [Presence] in Blood by Light microscopy Ordered By: Roxane Bills on 15-05-5523Mitoqzhgidig Ql (Bld)MarkedNormalMadison HealthComment on above:Performed By: #### SCAN CBC, CMP ####[place] [id number] [facility] Comprehensive Metabolic Panelon 63-28-0693Ijlwzmq [Mass/Vol]3.4 g/dLLow3.5-5.7 The [facility] Physician GroupComment on above:Performed By: #### SCAN CBC, CMP ####[address] Albumin/Globulin [Mass ratio]1.4 {ratio}NormalThe [facility] Comment on above:Performed By: #### SCAN CBC, CMP ####[place] [id number] [place]P [Catalytic activity/Vol]168 U/L Sjts80-335Wjh [facility] Health Physician GroupComment on above:Performed By: #### SCAN CBC, CMP ####[place] [id number] [place] [Catalytic activity/Vol]46 U/LNormal7-52[facility] Comment on above:Performed By: #### SCAN CBC, CMP ####[address] [address] USAAnion gap [Moles/Vol]11.2 mmol/LNormal 6.0-15.0The [facility] Physician GroupComment on above:Performed By: #### SCAN CBC, CMP ####[place] [id number] USAAST [Catalytic activity/Vol]38 U/RLfokhk10-44Tfw [facility] Comment on above:Performed By: #### SCAN CBC, CMP ####[address] [address] USABilirubin [Mass/Vol]0.4 mg/dLNormal 0.3-1.0The [facility] Physician GroupComment on above:Performed By: #### SCAN CBC, CMP ####[place] [address] USACalcium [Mass/Vol]8.3 mg/dLLow8.6-10.3The [facility] Physician GroupComment on above:Performed By: #### SCAN CBC, CMP ####[place] [address] USAChloride [Moles/Vol]102 mmol/NXqcsdv90-125Qkm [facility] Physician GroupComment on above:Performed By: #### SCAN CBC, CMP ####[place] [address] USACO2 [Moles/Vol]30.3 mmol/QJeteeh33.0-31.0The [facility] Physician GroupComment on above:Performed By: #### SCAN CBC, CMP ####[place] [address] USACreatinine [Mass/Vol]1.33 mg/dLHigh0.60-1.20 The [facility] Physician GroupComment on above:Performed By: #### SCAN CBC, CMP ####[place] [address] [place] Creatinine Clr Calc Lrfixmww21.53NormalThe [facility] Physician GroupComment on above:Result Comment: PERFORMED BY:[address] [place], [place] [phone] MEDICAL LEESA CHAUDHARY M.D.Performed By: #### SCAN CBC, CMP ####[place] [address] USAGFR/1.73 sq M.predicted MDRD (S/P/Bld) [Vol rate/Area]44.127 mL/min/{1.73_m2}NormalThe [facility] Physician GroupComment on above:Performed By: #### SCAN CBC, CMP ####[address] [address] USAGlobulin (S) [Mass/Vol]2.5 g/dLNormalThSaint Alphonsus [facility] Physician GroupComment on above:Performed By: #### SCAN CBC, CMP ####[address] [address] USAGlucose [Mass/Vol]377 mg/cRPkzp31-515Syi [facility] Physician GroupComment on above: Result Comment: Random Glucose Reference Range is dependent on time and content of last meal. Glucose of more than 200 mg/dL in a nonstressed, ambulatory subject supports the diagnosis of Diabetes Mellitus. ADA recommended reference rangePerformed By: #### SCAN CBC, CMP ####[address] [address] USAPotassium [Moles/Vol]3.5 mmol/LNormal3.5-5.1 The [facility] Physician GroupComment on above:Performed By: #### SCAN CBC, CMP ####[address] [address] USAProtein [Mass/Vol]5.9 g/dLLow6.4-8.9The [facility] Physician GroupComment on above: Performed By: #### SCAN CBC, CMP ####[address] [address] USASodium [Moles/Vol]140 mmol/DJxdzqw545-658Tyb [facility] Physician GroupComment on above:Performed By: #### SCAN CBC, CMP ####[address] [address] USAUrea nitrogen [Mass/Vol]32 mg/dLHigh7-25The [facility] Physician GroupComment on above:Performed By: #### SCAN CBC, CMP ####[address] [address] USAComprehensive metabolic panelon 01-17-2025 Albumin [Mass/Vol]3.4 g/dLLow3.5 [...] mg/dLHigh0.60 - 1.20 mg/dLNOMS HealthcareCREATININE CLR CALC MPQNSZYR80.53 NOM HealthcareGFR/1.73 sq M.predicted MDRD (S/P/Bld) [Vol rate/Area]44.127 mL/min/{1.73_m2}[facility] HealthcareGlobulin (S) [Mass/Vol]2.5 g/dLNOPA Healthcare Glucose [Mass/Vol]377 mg/iOEemf73 - 100 mg/dLNOPA HealthcareComment on above: Random Glucose Reference Range [...] by Light microscopyOrdered By: Roxane Bills on 23-74-3038Hitxtnzoou LM Ql (Bld)[facility] Erythrocyte morphology finding [Identifier] in BloodOrdered By: Roxane Bills on 21-12-6498ASD morphology finding Nom (Bld)N/[facility] Free K+L LT Chains, Qn, Son 84-97-5359Qxew [place] Light Chains, S32.7 mg/LNormal 3.3-19.4The [facility] Physician GroupComment on above:Performed By: #### IMM WILLIAM, SPE, KAPPA ####[facility] ,Free Lambda Light Chains, S17.0 mg/L Normal5.7-26.3The [facility] Health Physician GroupComment on above:Performed By: #### IMM WILLIAM, SPE, KAPPA ####[facility] ,[place]/Lambda Ratio, S1.92Normal 0.26-1.65The [facility] Health Physician GroupComment on above:Result Comment: Performed at: [facility] [address] [id number] Pan Washer Hand: Jhoan Rich PhD, Phone: [phone] BY:[place] [address] [place]YAMINIJaneBR[place], [place] [phone] MEDICAL DIRECTORELAINE CHAUDHARY M.D.Performed By: #### IMM WILLIAM, SPE, KAPPA ####[facility] ,Immunoglobulins A/G/M, Qn, Seron 29-90-1943Ifgzwuggwodxrg A, Serum 169 mg/tWUlrufj90-413Mtt [facility] Physician GroupComment on above:Performed By: #### IMM WILLIAM, SPE, KAPPA ####[facility] ,Immunoglobulin G1184 mg/dL Cagyes878-9000Pzm [facility] Physician GroupComment on above:Performed By: #### IMM WILLIAM, SPE, KAPPA ####[facility] ,Immunoglobulin M, Serum37 mg/dL Bpbjdm98-379Xrv [facility] Hospital Of Nittany ValleyComment on above:Result Comment: Performed at: [facility] [address] [id number] Pan Washer Hand: Jhoan Rich PhD, Phone: [phone] By: #### IMM WILLIAM, SPE, KAPPA ####[facility] ,Ovalocytes [Presence] in Blood by Light microscopyOrdered By: Roxane Bills on 67-47-5580Qiultyevru LM Ql (Bld)[facility] HospitalPlatelet adequacy [Presence] in Blood by Light microscopyOrdered By: Roxane Bills on 81-15-8200Qweyafnfs LM Ql (Bld)Decreased NormalMadison HealthPlatelet morphology finding [Identifier] in BloodOrdered By: Roxane Bills on 76-81-9882Vbjsbvni morphology finding Nom (Bld) NormalNormalMadison HealthPoikilocytosis [Presence] in Blood by Light microscopyOrdered By: Roxane Bills on 21-71-9122Kymtyysymanktm LM Ql (Bld) ModerateMadison HealthPolychromasia [Presence] in Blood by Light microscopyOrdered By: Roxane Bills on 12-73-1389Llyenzroedxfe LM Ql (Bld) [facility] CenterProtein Electrophoresis, Serumon 83-71-5808Vqeikio [Mass/Vol]3.0 g/dLNormal2.9-4.4The [facility] Comment on above:Performed By: #### IMM WILLIAM, SPE, KAPPA ####[facility] ,Albumin/Globulin [Mass ratio]1.1 {ratio}Normal0.7-1.7The [facility] Health Physician GroupComment on above:Performed By: #### IMM WILLIAM, SPE, KAPPA ####[facility] ,Ebcqa-6-Wjlzlazb9.2 g/dLNormal0.0-0.4The [facility] Physician GroupComment on above:Performed By: #### IMM WILLIAM, SPE, KAPPA ####[facility] ,Bphvm-3-Oxfkqizc8.7 g/dLNormal0.4-1.0The [facility] Physician GroupComment on above:Performed By: #### IMM WILLIAM, SPE, KAPPA ####[facility] ,Beta Globulin0.8 g/dLNormal0.7-1.3The [facility] Physician GroupComment on above:Performed By: #### IMM WILLIAM, SPE, KAPPA ####[facility] ,Gamma Globulin1.0 g/dLNormal0.4-1.8The [facility] Physician GroupComment on above:Performed By: #### IMM WILLIAM, SPE, KAPPA ####[facility] ,Globulin (S) [Mass/Vol]2.8 g/dLNormal2.2-3.9The [facility] Physician GroupComment on above:Performed By: #### IMM WILLIAM, SPE, KAPPA ####[facility] ,M-SpikeComment:NormalNot ObservedThe [facility] Health Physician GroupComment on above:Result Comment: SPE shows asymmetrical gamma. Suggest serum MITCH and free light chain analysis for further evaluation.Performed By: #### IMM WILLIAM, SPE, KAPPA ####[facility] ,Protein [Mass/Vol]5.8 g/dLNormal6.0-8.5The [facility] Physician GroupComment on above:Performed By: #### IMM WILLIAM, SPE, KAPPA ####[facility] ,SPE-NoteCommentNormal.The [facility] Health Physician GroupComment on above:Result Comment: Protein electrophoresis scan will follow via computer, mail, or butt maker delivery. Pe rformed at: [place] [id number] Pan Washer Hand: Jhoan Rich PhD, Phone: [phone] By: #### IMM WILLIAM, SPE, KAPPA ####[facility] ,Scan and CBCon 38-75-9576Meqvqwyum (Bld) [#/Vol]0.0 10*3/uLNormal0.0-0.2The [facility] Physician GroupComment on above: Performed By: #### SCAN CBC, CMP ####[facility] [id number] [place] [id number] USABasophils/100 WBC (Bld)0.0 %Normal.The [facility] Health Physician GroupComment on above:Performed By: #### SCAN CBC, CMP ####[place] [address] USAEosinophils (Bld) [#/Vol]0.0 10*3/uLNormal0.0-0.45The [facility] Health Physician GroupComment on above: Performed By: #### SCAN CBC, CMP ####[place] [address] USAEosinophils/100 WBC (Bld)0.9 %Normal.The [facility] Health Physician GroupComment on above:Performed By: #### SCAN CBC, CMP ####[place] [address] USAErythrocyte distribution width (RBC) [Ratio]23.3 %High11.9-15.3The [facility] Comment on above:Performed By: #### SCAN CBC, CMP ####[place] [address] USAHematocrit (Bld) [Volume fraction] 28.8 %Low34.0-46.4The [facility] Health Physician GroupComment on above:Performed By: #### SCAN CBC, CMP ####[place] [address] USAHemoglobin (Bld) [Mass/Vol]9.6 g/dLLow11.8-15.4The [facility] Physician GroupComment on above:Performed By: #### SCAN CBC, CMP ####[place] [address] USALymphocytes (Bld) [#/Vol]2.0 10*3/uLNormal1.00-4.8The [facility] Physician GroupComment on above: Performed By: #### SCAN CBC, CMP ####[place] [address] USALymphocytes/100 WBC (Bld)57.0 %Normal.The [facility] Physician GroupComment on above:Performed By: #### SCAN CBC, CMP ####[place] [address] USAMCH (RBC) [Entitic mass]31.0 kkNplvkb53.7-34.3The [facility] Physician GroupComment on above: Performed By: #### SCAN CBC, CMP ####[address] (RBC) [Entitic vol]92.8 kVBwqyjy03-606Lci [facility] Physician GroupComment on above:Performed By: #### SCAN CBC, CMP ####[place] [address] USAMean Corpuscular HGB Conc33.4 g/kPPwekdi69.0-35.0The [facility] Physician GroupComment on above:Performed By: #### SCAN CBC, CMP ####[place] [address] USAMonocytes (Bld) [#/Vol]0.3 10*3/uLNormal 0.0-0.8The [facility] Physician GroupComment on above:Performed By: #### SCAN CBC, CMP ####[place] [address] USAMonocytes/100 WBC (Bld)9.0 %Normal.The [facility] Physician GroupComment on above:Performed By: #### SCAN CBC, CMP ####[place] [address] USANeutrophils (Bld) [#/Vol]1.1 10*3/uLLow1.8-7.7 The [facility] Physician GroupComment on above:Performed By: #### SCAN CBC, CMP ####[place] [address] [place] Neutrophils/100 WBC (Bld)33.1 %Normal.The [facility] Physician GroupComment on above:Performed By: #### SCAN CBC, CMP ####[place] [address] USANRBC%0.1 /100{WBC}Normal0-0.5The [facility] Physician GroupComment on above:Performed By: #### SCAN CBC, CMP ####[address] [address] USAOvalocytesSlight NormalKeralty Hospital Miami Physician GroupComment on above:Performed By: #### SCAN CBC, CMP ####[address] [address] [place] Platelet EstimateDecreasedNormalAdventHealth Heart of Florida Physician GroupComment on above:Performed By: #### SCAN CBC, CMP ####[address] [address] USAPlatelet mean volume (Bld) [Entitic vol]8.7 fL Normal6.3-10.7The [facility] Physician GroupComment on above:Performed By: #### SCAN CBC, CMP ####[address] [address] USAPlatelet MorphologyNormalNormprNoCentral Harnett Hospital Physician Group Comment on above:Result Comment: PERFORMED BY:[address] [place], [place] [phone] MEDICAL DIRECTORELAINE CHAUDHARY M.D.Performed By: #### SCAN CBC, CMP ####[address] [address] USAPlatelets (Bld) [#/Vol]58 10*3/gUHwi024-689Gqm [facility] Physician GroupComment on above: Performed By: #### SCAN CBC, CMP ####[address] [address] USAPoikilocytosisModerateNormCleveland Clinic [facility] Hospital Physician GroupComment on above:Performed By: #### SCAN CBC, CMP ####[address] [address] USAPolychromasiaSlightAdventHealth Heart of Florida Physician GroupComment on above:Performed By: #### SCAN CBC, CMP ####[address] [address] USARBC (Bld) [#/Vol]3.10 10*6/uLLow3.60-5.00The [facility] Physician GroupComment on above:Performed By: #### SCAN CBC, CMP ####[facility] [place] [address] USATear Drop CellsSlightNormalThe [facility] Health Physician GroupComment on above:Performed By: #### SCAN CBC, CMP ####[address] [address] USAWBC (Bld) [#/Vol]3.4 10*3/uLLow3.8-11.6The [facility] Physician GroupComment on above:Performed By: #### SCAN CBC, CMP ####[address] [address] USAWhite Blood Count3.4 [CFU]/mLLow3.8-11.6The [facility] Physician GroupComment on above:Performed By: #### SCAN CBC, CMP ####[address] [address] USASerum or plasma IgA measurement (mass/volume)Ordered By: Sugey Cummins on 49-36-0000NnV [Mass/Vol] 169 mg/rL86-126WbjnkyixpTriHealtherum or plasma IgG measurement (mass/volume)Ordered By: Sugey Cummins on 95-37-1691LmF [Mass/Vol]1184 mg/dL 586-1602TriHealtherum or plasma IgM measurement (mass/volume)Ordered By: Sugey Cummins on 68-57-0337HjQ [Mass/Vol]37 mg/dL 26-217Madison HealthBasic Metabolic Panelon 93-94-8405Afsmu gap [Moles/Vol]8.1 mmol/LNormal6.0-15.0The [facility] Physician GroupComment on above:Performed By: #### DIFF CBC, BMP ####[address] [address] USACalcium [Mass/Vol]6.9 mg/dLLow8.6-10.3The [facility] Physician GroupComment on above:Performed By: #### DIFF CBC, BMP ####[place] [address] [place] Chloride [Moles/Vol]105 mmol/THuprxj32-416Iql [facility] Physician GroupComment on above:Performed By: #### DIFF CBC, BMP ####[place] [address] [place] [address] USACO2 [Moles/Vol]31.1 mmol/LHigh21.0-31.0The [facility] Physician GroupComment on above:Performed By: #### DIFF CBC, BMP ####[address] [address] [place] Creatinine [Mass/Vol]0.86 mg/dLNormal0.60-1.20The [facility] Comment on above:Performed By: #### DIFF CBC, BMP ####[place] [address] [place] [address] USACreatinine Clr Calc Clmtzlup25.74 NormalThe [facility] Physician GroupComment on above:Result Comment: PERFORMED BY:[address] [place], [place] [phone] MEDICAL DIRECTORELAINE CHAUDHARY M.D.Performed By: #### DIFF CBC, BMP ####[address] [address] USAGFR/1.73 sq M.predicted MDRD (S/P/Bld) [Vol rate/Area]mL/min/{1.73_m2}Normal The [facility] Physician GroupComment on above:Performed By: #### DIFF CBC, BMP ####[address] [address] USAGlucose [Mass/Vol]136 mg/zZYpyi65-998Ktb [facility] Physician GroupComment on above: Result Comment: Random Glucose Reference Range is dependent on time and content of last meal. Glucose of more than 200 mg/dL in a nonstressed, ambulatory subject supports the diagnosis of Diabetes Mellitus. ADA recommended reference rangePerformed By: #### DIFF CBC, BMP ####[facility] [place] [address] USAPotassium [Moles/Vol]3.2 mmol/LLow3.5-5.1The [facility] Physician GroupComment on above:Performed By: #### DIFF CBC, BMP ####[address] [address] USASodium [Moles/Vol]141 mmol/UTvfthw691-944Duy [facility] Physician GroupComment on above: Performed By: #### DIFF CBC, BMP ####[address] [address] USAUrea nitrogen [Mass/Vol]21 mg/dLNormal7-25The [facility] Physician GroupComment on above:Performed By: #### DIFF CBC, BMP ####[address] [address] USADiff and CBCon 50-64-2393Ffhdsmmsctrs Ql (Bld)ModerateNormalThe [facility] Physician GroupComment on above:Performed By: #### DIFF CBC, BMP ####[address] [address] USAEosinophils/100 WBC (Bld)4 % High1-3The [facility] Physician GroupComment on above:Performed By: #### DIFF CBC, BMP ####[address] [address] USAErythrocyte distribution width (RBC) [Ratio]15.5 %High11.9-15.3The [facility] Physician GroupComment on above:Performed By: #### DIFF CBC, BMP ####[address] [address] USAGiant Platelet Tally2 /100{WBC}NormalThe [facility] Physician GroupComment on above:Performed By: #### DIFF CBC, BMP ####[address] [address] USAHematocrit (Bld) [Volume fraction]26.7 %Low34.0-46.4The [facility] Physician GroupComment on above:Performed By: #### DIFF CBC, BMP ####[address] [address] USAHemoglobin (Bld) [Mass/Vol]9.1 g/dLLow11.8-15.4The [facility] Physician GroupComment on above: Performed By: #### DIFF CBC, BMP ####[address] [address] USALymphocytes/100 WBC (Bld)56 %Sysy32-43Euh [facility] Physician GroupComment on above:Performed By: #### DIFF CBC, BMP ####[address] [address] [facility] (RBC) [Entitic mass]29.3 dnUazcax39.7-34.3The [facility] Physician GroupComment on above: Performed By: #### DIFF CBC, BMP ####[address] [address] [facility] (RBC) [Entitic vol]86.2 iNPiqnrv09-507Pkr [facility] Physician GroupComment on above:Performed By: #### DIFF CBC, BMP ####[address] [address] USAMean Corpuscular HGB Conc34.0 g/kDOsdtky72.0-35.0The [facility] Physician GroupComment on above:Performed By: #### DIFF CBC, BMP ####[address] [address] USAMicrocytosisModerateNoCentral Harnett Hospital Physician GroupComment on above:Performed By: #### DIFF CBC, BMP ####[address] [address] USAMonocytes/100 WBC (Bld)10 %Normal2-11The [facility] Physician GroupComment on above:Performed By: #### DIFF CBC, BMP ####[address] [address] USANucleated Red Blood Cell2 /100{WBC}High0-0The [facility] Physician GroupComment on above:Performed By: #### DIFF CBC, BMP ####[address] [address] USAPlatelet EstimateDecreased NormalNoCentral Harnett Hospital Physician GroupComment on above:Performed By: #### DIFF CBC, BMP ####[address] [address] USAPlatelet mean volume (Bld) [Entitic vol]8.5 fLNormal6.3-10.7The [facility] Physician GroupComment on above:Performed By: #### DIFF CBC, BMP ####[place] [address] [facility] Platelet MorphologyNormalNormalNormCleveland Clinic [facility] Hospital Physician GroupComment on above:Result Comment: PERFORMED BY:[address] [place], [place] [phone] MEDICAL DIRECTORELAINE CHAUDHARY M.D.Performed By: #### DIFF CBC, BMP ####[place] [address] USAPlatelets (Bld) [#/Vol]12 10*3/uLOff scale low 150-450The [facility] Physician GroupComment on above:Result Comment: Critical value result called at 0946 on 12/31/24Performed By: #### DIFF CBC, BMP ####[place] [address] [facility] PolychromasiaSlightNormCleveland Clinic Martin [facility] Hospital Physician GroupComment on above:Performed By: #### DIFF CBC, BMP ####[place] [address] USARBC (Bld) [#/Vol]3.10 10*6/uLLow3.60-5.00The [facility] Physician GroupComment on above:Performed By: #### DIFF CBC, BMP ####[place] [address] [facility] Reactive Lymphocytes7 %Normal0-12The [facility] Physician GroupComment on above: Performed By: #### DIFF CBC, BMP ####[place] [address] USASegmented neutrophils/100 WBC (Bld)23 %Kiv86-82Kjw [facility] Physician GroupComment on above:Performed By: #### DIFF CBC, BMP ####[place] [address] USAWBC (Bld) [#/Vol]1.1 10*3/uLLow3.8-11.6The [facility] Physician GroupComment on above:Performed By: #### DIFF CBC, BMP ####[address] [address] USAWhite Blood Count1.1 [CFU]/mLLow3.8-11.6The [facility] Physician GroupComment on above:Performed By: #### DIFF CBC, BMP ####[address] [address] USAGlucose Poct Glucometerson 53-55-0205Qzzywzv [Mass/Vol]121 mg/dLNormCleveland Clinic [facility] Hospital Physician GroupComment on above:Result Comment: Random Glucose Reference Range is dependent on time and content of last meal. Glucose of more than 200 mg/dL in a nonstressed, ambulatory subject supports the diagnosis of Diabetes Hedy litus.PERFORMED BY:[address] [place], [place] [phone] MEDICAL LEESA CHAUDHARY M.D.Performed By: #### GLULS ####Point of Care testing,Glucose [Mass/Vol]156 mg/dLNoCentral Harnett Hospital Physician GroupComment on above:Result Comment: Random Glucose Reference Range is dependent on time and content of last meal. Glucose of more than 200 mg/dL in a nonstressed, ambulatory subject supports the diagnosis of Diabetes Mellitus.PERFORMED BY:[address] [place], [place] [phone] MEDICAL LEESA CHAUDHARY M.D.Performed By: #### GLULS ####Point of Care testing,Basic Metabolic Panelon 17-20-1173Rqfar gap [Moles/Vol]7.7 mmol/LNormal6.0-15.0The [facility] Physician GroupComment on above:Performed By: #### DIFF CBC, BMP ####[place] [address] [place] [address] USACalcium [Mass/Vol]7.3 mg/dLLow 8.6-10.3The [facility] Physician GroupComment on above:Performed By: #### DIFF CBC, BMP ####[facility] [place] [address] USAChloride [Moles/Vol]104 mmol/CHyxtis76-564Ucq [facility] Comment on above:Performed By: #### DIFF CBC, BMP ####[place] [address] [place] [address] USACO2 [Moles/Vol]28.8 mmol/LNormal 21.0-31.0The [facility] Physician GroupComment on above:Performed By: #### DIFF CBC, BMP ####[place] [address] [place] [address] USACreatinine [Mass/Vol]0.90 mg/dLNormal0.60-1.20The [facility] Comment on above:Performed By: #### DIFF CBC, BMP ####[address] [address] USACreatinine Clr Calc Pafnngzv10.59 NormalThe [facility] Physician GroupComment on above:Result Comment: PERFORMED BY:[place] [address] [address] [place], [place] [phone] MEDICAL LEESA CHAUDHARY M.D.Performed By: #### DIFF CBC, BMP ####[address] [address] USAGFR/1.73 sq M.predicted MDRD (S/P/Bld) [Vol rate/Area]mL/min/{1.73_m2}Normal The [facility] Physician GroupComment on above:Performed By: #### DIFF CBC, BMP ####[address] [address] USAGlucose [Mass/Vol]235 mg/pJLwzd46-592Gxc [facility] Physician GroupComment on above: Result Comment: Random Glucose Reference Range is dependent on time and content of last meal. Glucose of more than 200 mg/dL in a nonstressed, ambulatory subject supports the diagnosis of Diabetes Mellitus. ADA recommended reference rangePerformed By: #### DIFF CBC, BMP ####[address] [address] USAPotassium [Moles/Vol]2.5 mmol/LOff scale low 3.5-5.1The [facility] Physician GroupComment on above:Result Comment: Critical Result Called to and read back by: ISIAH BROWN at: 12/30/2024 08:47:59 by:Fina [id number] By: #### DIFF CBC, BMP ####[address] [address] USASodium [Moles/Vol]138 mmol/IRinova711-276Dxe [facility] Physician GroupComment on above:Performed By: #### DIFF CBC, BMP ####[address] [address] USAUrea nitrogen [Mass/Vol]22 mg/dLNormal7-25The [facility] Physician GroupComment on above:Performed By: #### DIFF CBC, BMP ####[address] [address] USADiff and CBCon 41-10-4259Fabojdrgfqve Ql (Bld) SlightNormalThe [facility] Physician GroupComment on above:Performed By: #### DIFF CBC, BMP ####[address] [address] USABasophils/100 WBC (Bld)0 %Normal0-2The [facility] Physician GroupComment on above:Performed By: #### DIFF CBC, BMP ####[address] [address] USAEosinophils/100 WBC (Bld)0 %Low1-3The [facility] Physician GroupComment on above:Performed By: #### DIFF CBC, BMP ####[address] [address] [place] Erythrocyte distribution width (RBC) [Ratio]15.1 %Tgirrt05.9-15.3The [facility] Physician GroupComment on above:Performed By: #### DIFF CBC, BMP ####[address] [address] USAHematocrit (Bld) [Volume fraction]26.9 %Low34.0-46.4The [facility] Physician GroupComment on above:Performed By: #### DIFF CBC, BMP ####[address] [address] USAHemoglobin (Bld) [Mass/Vol]9.0 g/dLLow 11.8-15.4The [facility] Physician GroupComment on above:Performed By: #### DIFF CBC, BMP ####[address] [address] USAHypochromasiaSlightNormalThe [facility] Physician GroupComment on above: Performed By: #### DIFF CBC, BMP ####[address] [address] USALymphocytes/100 WBC (Bld)41 %Wathsw17-78Nzj [facility] Physician GroupComment on above:Performed By: #### DIFF CBC, BMP ####[address] [address] USAMCH (RBC) [Entitic mass]29.4 bnYdueoa96.7-34.3The [facility] Physician GroupComment on above:Performed By: #### DIFF CBC, BMP ####[address] [address] USAMCV (RBC) [Entitic vol]88.1 yWDywfdx51-227Ckz [facility] Physician GroupComment on above:Performed By: #### DIFF CBC, BMP ####[address] [address] USAMean Corpuscular HGB Conc33.3 g/zHAkxlxj01.0-35.0The [facility] Physician GroupComment on above:Performed By: #### DIFF CBC, BMP ####[address] [address] USAMonocytes/100 WBC (Bld)14 %High2-11The [facility] Physician GroupComment on above:Performed By: #### DIFF CBC, BMP ####[address] [address] [place] Nucleated Red Blood Cell3 /100{WBC}High0-0The [facility] GroupComment on above:Performed By: #### DIFF CBC, BMP ####[facility] [place] [address] USAPlatelet EstimateDecreasedNormalNormCleveland Clinic Martin South Hospital Physician GroupComment on above:Performed By: #### DIFF CBC, BMP ####[address] [place] [address] [place] Platelet mean volume (Bld) [Entitic vol]8.4 fLNormal6.3-10.7The [facility] Physician GroupComment on above:Performed By: #### DIFF CBC, BMP ####[address] [address] USAPlatelet Morphology NormalNormalNormCleveland Clinic Martin South Hospital Physician GroupComment on above:Result Comment: PERFORMED BY:[address] [place], [place] [phone] MEDICAL DIRECTORELAINE CHAUDHARY M.D.Performed By: #### DIFF CBC, BMP ####[address] [address] USAPlatelets (Bld) [#/Vol]16 10*3/uLOff scale kuy514-258Ldm [facility] Physician GroupComment on above:Result Comment: Critical value result called at 0846 on 12/30/24Performed By: #### DIFF CBC, BMP ####[address] [address] USARBC (Bld) [#/Vol]3.05 10*6/uLLow 3.60-5.00The [facility] Physician GroupComment on above:Performed By: #### DIFF CBC, BMP ####[facility] [place] [address] USAReactive Lymphocytes6 %Normal0-12The [facility] Physician GroupComment on above:Performed By: #### DIFF CBC, BMP ####[address] [address] USASegmented neutrophils/100 WBC (Bld)39 %Low 50-70The [facility] Physician GroupComment on above:Performed By: #### DIFF CBC, BMP ####[address] [place] [address] USAWBC (Bld) [#/Vol]1.0 10*3/uLLow3.8-11.6The [facility] Physician GroupComment on above:Performed By: #### DIFF CBC, BMP ####[address] [place] [address] USAWhite Blood Count1.0 [CFU]/mLLow3.8-11.6The [facility] Physician GroupComment on above:Performed By: #### DIFF CBC, BMP ####[address] [address] USAGlucose Poct Glucometerson 62-13-1824Sdkvjek [Mass/Vol]274 mg/dLNoCentral Harnett Hospital Physician GroupComment on above:Result Comment: Random Glucose Reference Range is dependent on time and content of last meal. Glucose of more than 200 mg/dL in a nonstressed, ambulatory subject supports the diagnosis of Diabetes Hedy litus.PERFORMED BY:[address] [place], [place] [phone] MEDICAL LEESA CHAUDHARY M.D.Performed By: #### GLULS ####Point of Care testing,Glucose [Mass/Vol]307 mg/dLNoCentral Harnett Hospital Physician GroupComment on above:Result Comment: Random Glucose Reference Range is dependent on time and content of last meal. Glucose of more than 200 mg/dL in a nonstressed, ambulatory subject supports the diagnosis of Diabetes Mellitus.PERFORMED BY:[address] [place], [place] [phone] MEDICAL LEESA CHAUDHARY M.D.Performed By: #### GLULS ####Point of Care testing,Glucose [Mass/Vol]298 mg/dLNoCentral Harnett Hospital Physician GroupComment on above:Result Comment: Random Glucose Reference Range is dependent on time and content of last meal. Glucose of more than 200 mg/dL in a nonstressed, ambulatory subject supports the diagnosis of Diabetes Mellitus.PERFORMED BY:[address] [place], [place] [phone] MEDICAL DIRECTORELAINE CHAUDHARY M.D.Performed By: #### GLULS ####Point of Care testing, Glucose [Mass/Vol]249 mg/dLNoCentral Harnett Hospital Physician GroupComment on above: Result Comment: Random Glucose Reference Range is dependent on time and content of last meal. Glucose of more than 200 mg/dL in a nonstressed, ambulatory subject supports the diagnosis of Diabetes Mellitus.PERFORMED BY:[address] [place], [place] [phone] MEDICAL DIRECTORELAINE CHAUDHARY M.D.Performed By: #### GLULS ####Point of Care testing,Basic Metabolic Panelon 59-92-6459Wkizn gap [Moles/Vol]7.4 mmol/LNormal 6.0-15.0The [facility] Physician GroupComment on above:Performed By: #### DIFF CBC, BMP ####[address] [address] USACalcium [Mass/Vol]7.1 mg/dLLow8.6-10.3The [facility] Physician GroupComment on above:Performed By: #### DIFF CBC, BMP ####[address] [address] USAChloride [Moles/Vol]103 mmol/UPqgdqe41-634Xnl [facility] Physician [facility] Medical CenterComment on above:Performed By: #### DIFF CBC, BMP ####[address] [address] USACO2 [Moles/Vol]27.9 mmol/PJyzews11.0-31.0The [facility] Physician GroupComment on above:Performed By: #### DIFF CBC, BMP ####[address] [address] USACreatinine [Mass/Vol]1.07 mg/dLAbnormal 0.60-1.20The [facility] Physician GroupComment on above:Performed By: #### DIFF CBC, BMP ####[address] [address] USACreatinine Clr Calc Iiynpfof47.23NormCleveland Clinic Martin South Hospital Physician GroupComment on above:Result Comment: PERFORMED BY:[address] [place], [place] [phone] MEDICAL DIRECTORELAINE CHAUDHARY M.D.Performed By: #### DIFF CBC, BMP ####[address] [place] [address] USAGFR/1.73 sq M.predicted MDRD (S/P/Bld) [Vol rate/Area]57.288 mL/min/{1.73_m2}NormalThe [facility] Group Comment on above:Performed By: #### DIFF CBC, BMP ####[address] [place] [address] USAGlucose [Mass/Vol]296 mg/uECqjx04-520 The [facility] Physician GroupComment on above:Result Comment: Random Glucose Reference Range is dependent on time and content of last meal. Glucose of more than 200 mg/dL in a nonstressed, ambulatory subject supports the diagnosis of Diabetes Mellitus. ADA recommended reference rangePerformed By: #### DIFF CBC, BMP ####[address] [address] [place] Potassium [Moles/Vol]3.3 mmol/LLow3.5-5.1The [facility] Physician GroupComment on above:Performed By: #### DIFF CBC, BMP ####[address] [address] USASodium [Moles/Vol]135 mmol/SOrm836-613Tns [facility] Physician GroupComment on above:Performed By: #### DIFF CBC, BMP ####[address] [place] [address] USAUrea nitrogen [Mass/Vol]30 mg/dLHigh7-25The [facility] Physician GroupComment on above:Performed By: #### DIFF CBC, BMP ####[address] [address] USADiff and CBCon 36-31-2889Ukkmbgvul/100 WBC (Bld)2 %Normal0-2The [facility] Physician GroupComment on above:Performed By: #### DIFF CBC, BMP ####[address] [address] USAErythrocyte distribution width (RBC) [Ratio]15.0 %Mjlkwl84.9-15.3The [facility] Physician GroupComment on above:Performed By: #### DIFF CBC, BMP ####[address] [address] USAGiant Platelet Tally2 /100{WBC}NormalThe [facility] Physician GroupComment on above: Performed By: #### DIFF CBC, BMP ####[address] [address] USAHematocrit (Bld) [Volume fraction]26.7 %Low34.0-46.4 The [facility] Physician GroupComment on above:Performed By: #### DIFF CBC, BMP ####[address] [address] [place] Hemoglobin (Bld) [Mass/Vol]9.0 g/dLLow11.8-15.4The [facility] Comment on above:Performed By: #### DIFF CBC, BMP ####[address] [address] USALymphocytes/100 WBC (Bld)41 %Normal 18-42The [facility] Physician GroupComment on above:Performed By: #### DIFF CBC, BMP ####[address] [address] USAMCH (RBC) [Entitic mass]30.1 gfZzxrsy02.7-34.3The [facility] Physician GroupComment on above:Performed By: #### DIFF CBC, BMP ####[address] [address] USAMCV (RBC) [Entitic vol]89.2 jSZabuem16-184Wpd [facility] Physician GroupComment on above:Performed By: #### DIFF CBC, BMP ####[address] [address] USAMean Corpuscular HGB Conc33.7 g/iNBcdkbh20.0-35.0The [facility] Physician GroupComment on above:Performed By: #### DIFF CBC, BMP ####[address] [address] USAMetamyelocytes1 %High0-0The [facility] Physician GroupComment on above:Performed By: #### DIFF CBC, BMP ####[address] [address] USAMonocytes/100 WBC (Bld)10 %Normal2-11The [facility] Physician GroupComment on above:Performed By: #### DIFF CBC, BMP ####[address] [address] USAMyelocytes1 %High0-0The [facility] Physician GroupComment on above: Performed By: #### DIFF CBC, BMP ####[address] [address] USAPlatelet EstimateDecreasedNormalNormCleveland Clinic Martin South Hospital Physician GroupComment on above:Performed By: #### DIFF CBC, BMP ####[address] [address] USAPlatelet mean volume (Bld) [Entitic vol]9.5 fLNormal6.3-10.7The [facility] Physician GroupComment on above:Performed By: #### DIFF CBC, BMP ####[address] [address] USAPlatelet MorphologyNormalNormalNormCleveland Clinic [facility] Hospital Physician GroupComment on above:Result Comment: PERFORMED BY:[address] [place], [place] [phone] MEDICAL LEESA CHAUDHARY M.D.Performed By: #### DIFF CBC, BMP ####[address] [address] [place] Platelets (Bld) [#/Vol]10 10*3/uLOff scale khw862-702Kzk [facility] Physician GroupComment on above:Result Comment: Critical value result called at 0839 on 12/29/24Performed By: #### DIFF CBC, BMP ####[address] [address] USARBC (Bld) [#/Vol]2.99 10*6/uLLow3.60-5.00The [facility] Physician [facility] Medical CenterComment on above:Performed By: #### DIFF CBC, BMP ####[address] [address] USARBC morphology finding Nom (Bld)NormalNormalNoCentral Harnett Hospital Physician [facility] Comment on above:Performed By: #### DIFF CBC, BMP ####[address] [address] USASegmented neutrophils/100 WBC (Bld)46 %Inp74-06Piu [facility] Physician GroupComment on above:Performed By: #### DIFF CBC, BMP ####[address] [address] USAWBC (Bld) [#/Vol]0.7 10*3/uLLow3.8-11.6The [facility] Physician GroupComment on above:Performed By: #### DIFF CBC, BMP ####[address] USAWhite Blood Count0.7 [CFU]/mLLow3.8-11.6The [facility] Physician [facility] Medical CenterComment on above:Performed By: #### DIFF CBC, BMP ####[address] USAGlucose Poct Glucometerson 74-54-4441Rkanelc [Mass/Vol]301 mg/dLNoCentral Harnett Hospital Physician [facility] CenterComment on above:Result Comment: Random Glucose Reference Range is dependent on time and content of last meal. Glucose of more than 200 mg/dL in a nonstressed, ambulatory subject supports the diagnosis of Diabetes Hedy litus.PERFORMED BY:[address] [place], [place] [phone] MEDICAL DIRECTORELAINE CHAUDHARY M.D.Performed By: #### GLULS ####Point of Care testing,Glucose [Mass/Vol]306 mg/dLNoCentral Harnett Hospital Physician [facility] Medical CenterComment on above:Result Comment: Random Glucose Reference Range is dependent on time and content of last meal. Glucose of more than 200 mg/dL in a nonstressed, ambulatory subject supports the diagnosis of Diabetes Mellitus.PERFORMED BY:[address] [place], [place] [phone] MEDICAL LEESA CHAUDHARY M.D.Performed By: #### GLULS ####Point of Care testing,Jphdkgn8Ljw9: Cleaned MeterNoCentral Harnett Hospital Physician GroupComment on above:Result Comment: PERFORMED BY:[address] [place], [place] [phone] MEDICAL LEESA CHAUDHARY M.D.Performed By: #### GLULS [...] subject supports the diagnosis of Diabetes Mellitus.PERFORMED BY:[address] [place], [place] [phone] MEDICAL LEESA CHAUDHARY M.D.Performed By: #### GLULS ####Point of Care testing, Glucose [Mass/Vol]315 mg/dLAdventHealth Heart of Florida Physician GroupComment on above: Result Comment: Random Glucose Reference Range is dependent on time and content of last meal. Glucose of more than 200 mg/dL in a nonstressed, ambulatory subject supports the diagnosis of Diabetes Mellitus.PERFORMED BY:[address] [place], [place] [phone] ISRA CHAUDHARY M.D.Performed By: #### GLULS ####Point of Care testing,Glucose [Mass/Vol]358 mg/dLAdventHealth Heart of Florida Physician [facility] CenterComment on above:Result Comment: Random Glucose Reference Range is dependent on time and content of last meal. Glucose of more than 200 mg/dL in a nonstressed, ambulatory subject supports the diagnosis of Diabetes Mellitus.PERFORMED BY:[address] [place], [place] [phone] MEDICAL DIRECTORELAINE CHAUDHARY M.D.Performed By: #### GLULS ####Point of Care testing,Antibody Identificationon 12-28-2024 Antibody NpfucupzjnwywxJL46QbdrmhFqeKing's Daughters Medical Center OhioBasic Metabolic Panelon 53-36-7634Ukqoz gap [Moles/Vol]9.3 mmol/LNormal6.0-15.0The [facility] Physician GroupComment on above:Performed By: #### BMP, DIFF CBC ####[address] [address] USACalcium [Mass/Vol]6.8 mg/dLLow8.6-10.3The [facility] Physician GroupComment on above:Performed By: #### BMP, DIFF CBC ####[address] [address] USAChloride [Moles/Vol]102 mmol/JSprfnx60-625Thg [facility] Physician GroupComment on above:Performed By: #### BMP, DIFF CBC ####[address] [address] USACO2 [Moles/Vol]26.3 mmol/L Vpqhzo73.0-31.0The [facility] Physician GroupComment on above:Performed By: #### BMP, DIFF CBC ####[address] [address] USACreatinine [Mass/Vol]1.62 mg/dLHigh0.60-1.20The [facility] Physician GroupComment on above:Performed By: #### BMP, DIFF CBC ####[address] [address] USACreatinine Clr Calc Pharmacy 38.00NormCleveland Clinic Martin South Hospital Physician GroupComment on above:Result Comment: PERFORMED BY:[facility] [place] [address] [place], [place] [phone] MEDICAL DIRECTORELAINE CHAUDHARY M.D.Performed By: #### BMP, DIFF CBC ####[address] [address] USAGFR/1.73 sq M.predicted MDRD (S/P/Bld) [Vol rate/Area]34.826 mL/min/{1.73_m2}NormalThe [facility] Physician GroupComment on above:Performed By: #### BMP, DIFF CBC ####[address] [address] USAGlucose [Mass/Vol]250 mg/zMAdmp70-865Xnx [facility] Physician GroupComment on above:Result Comment: Random Glucose Reference Range is dependent on time and content of last meal. Glucose of more than 200 mg/dL in a nonstressed, ambulatory subject supports the diagnosis of Diabetes Mellitus. ADA recommended reference rangePerformed By: #### BMP, DIFF CBC ####[address] [address] USAPotassium [Moles/Vol] 3.6 mmol/LNormal3.5-5.1The [facility] Physician GroupComment on above:Performed By: #### BMP, DIFF CBC ####[address] [address] USASodium [Moles/Vol]134 mmol/OYkc388-726Jxv [facility] Physician GroupComment on above:Performed By: #### BMP, DIFF CBC ####[address] [address] USAUrea nitrogen [Mass/Vol]36 mg/dLHigh7-25The [facility] Physician GroupComment on above: Performed By: #### BMP, DIFF CBC ####[address] [address] USABioFire Not Detectedon 62-55-9872DsvUtwv Not DetectedNot detectedNormalNot DetecteThe [facility] Physician GroupComment on above:Result Comment: This is a duplicate RP2.1 COVID (PCR) result to be used for statistical tracking purpose only.PERFORMED BY:[address] [place], [place] [phone] MEDICAL LEESA CHAUDHARY M.D.Performed By: #### BIOFIRECOVNOTDE, RESP PANEL UPP. ####[address] [address] USAood Bank Pathologist Reviewon 35-57-5894Lnrrx Bank Pathologist ReviewSent to PathologyAdventHealth Heart of Florida Physician GroupComment on above:Result Comment: PERFORMED BY:[address] [place], [place] [phone] MEDICAL DIRECTORELAINE CHAUDHARY M.D.Diff and CBCon 25-57-6332Rdqobezzxpwg Ql (Bld)SlightAdventHealth Heart of Florida Physician GroupComment on above:Performed By: #### BMP, DIFF CBC ####[address] USABand form neutrophils/100 WBC (Bld)14 %High0-5The [facility] Physician GroupComment on above:Performed By: #### BMP, DIFF CBC ####[address] [address] USAErythrocyte distribution width (RBC) [Ratio]15.0 %Ihsgid47.9-15.3The [facility] Physician GroupComment on above:Performed By: #### BMP, DIFF CBC ####[address] USAGiant Platelet Tally2 /100{WBC}NormalThe [facility] Physician GroupComment on above: Performed By: #### BMP, DIFF CBC ####[address] [address] USAHematocrit (Bld) [Volume fraction]29.4 %Low34.0-46.4 The [facility] Physician GroupComment on above:Performed By: #### BMP, DIFF CBC ####[address] [address] [place] Hemoglobin (Bld) [Mass/Vol]9.7 g/dLLow11.8-15.4The [facility] Comment on above:Performed By: #### BMP, DIFF CBC ####[address] [address] USALarge PlateletsSlightAdventHealth Heart of Florida Physician GroupComment on above:Result Comment: PERFORMED BY:[address] [place], [place] [phone] MEDICAL DIRECTORELAINE CHAUDHARY M.D.Performed By: #### BMP, DIFF CBC ####[address] [address] [place] Lymphocytes/100 WBC (Bld)31 %Lgocwc87-36Ojo [facility] Physician GroupComment on above:Performed By: #### BMP, DIFF CBC ####[address] [address] [facility] (RBC) [Entitic mass]29.4 tvPuuwyk32.7-34.3 The [facility] Physician GroupComment on above:Performed By: #### BMP, DIFF CBC ####[address] [address] [facility] (RBC) [Entitic vol]88.7 fXTmchqz12-091Gtd [facility] Physician GroupComment on above:Performed By: #### BMP, DIFF CBC ####[address] [address] USAMean Corpuscular HGB Conc33.1 g/dLNormal 32.0-35.0The [facility] Physician GroupComment on above:Performed By: #### BMP, DIFF CBC ####[address] [address] USAMicrocytosisSlightNoCentral Harnett Hospital Physician GroupComment on above: Performed By: #### BMP, DIFF CBC ####[address] [address] USAMonocytes/100 WBC (Bld)2 %Normal2-11The [facility] Physician GroupComment on above:Performed By: #### BMP, DIFF CBC ####[address] [place] [address] USAOvalocytesSlight NormalKeralty Hospital Miami Physician GroupComment on above:Performed By: #### BMP, DIFF CBC ####[address] [address] [place] Platelet EstimateDecreasedNormalNoCentral Harnett Hospital Physician GroupComment on above:Performed By: #### BMP, DIFF CBC ####[address] USAPlatelet mean volume (Bld) [Entitic vol]11.3 fLHigh6.3-10.7The [facility] Physician GroupComment on above:Performed By: #### BMP, DIFF CBC ####[place] [address] USAPlatelets (Bld) [#/Vol]4 10*3/uLOff scale zkh586-375Pir [facility] Physician GroupComment on above:Performed By: #### BMP, DIFF CBC ####[address] [address] USAPoikilocytosisSlight NormalThe [facility] Physician GroupComment on above:Performed By: #### BMP, DIFF CBC ####[address] [place] RBC (Bld) [#/Vol]3.31 10*6/uLLow3.60-5.00The [facility] Physician GroupComment on above:Performed By: #### BMP, DIFF CBC ####[address] USAReactive Lymphocytes4 %Normal0-12The [facility] Physician GroupComment on above:Performed By: #### BMP, DIFF CBC ####[address] USASegmented neutrophils/100 WBC (Bld)50 %Kkzasy55-53[facility] Physician GroupComment on above:Performed By: #### BMP, DIFF CBC ####[address] USASpherocytesSlightNoCentral Harnett Hospital Physician GroupComment on above:Performed By: #### BMP, DIFF CBC ####[facility] [place] [address] USATear Drop CellsSlightAdventHealth Heart of Florida Physician GroupComment on above:Performed By: #### BMP, DIFF CBC ####[address] [address] USAWBC (Bld) [#/Vol]0.6 10*3/uLLow3.8-11.6The [facility] Physician GroupComment on above:Performed By: #### BMP, DIFF CBC ####[address] [address] USAWhite Blood Count0.6 [CFU]/mLLow3.8-11.6The [facility] Physician GroupComment on above:Performed By: #### BMP, DIFF CBC ####[address] [address] USAGlucose Poct Glucometerson 03-77-7560Qlfzkly3QtctihAbe Firelands Physician [facility] CenterComment on above:Result Comment: Glu2: WILL NOTIFY DR/RNPERFORMED BY:[address] [place], [place] [phone] MEDICAL LEESA CHAUDHARY M.D.Performed By: #### GLULS ####Point of Care testing, Glucose [Mass/Vol]473 mg/dLOff scale [facility] Physician [facility] CenterComment on above:Result Comment: Random Glucose Reference Range is dependent on time and content of last meal. Glucose of more than 200 mg/dL in a nonstressed, ambulatory subject supports the diagnosis of Diabetes Mellitus.Performed By: #### GLULS ####Point of Care testing,Bdmobgf8EgxpijVgy[address] Physician [facility] Comment on above:Result Comment: Glu2: Will Repeat TestPERFORMED BY:[address] [place], [place] [phone] MEDICAL LEESA CHAUDHARY M.D.Performed By: #### GLULS ####Point of Care testing,Glucose [Mass/Vol]458 mg/dLOff scale [facility] Physician Group Comment on above:Result Comment: Random Glucose Reference Range is dependent on time and content of last meal. Glucose of more than 200 mg/dL in a nonstressed, ambulatory subject supports the diagnosis of Diabetes Mellitus.Performed By: #### GLULS ####Point of Care testing,Fkvsjrc0Gef0: Cleaned MeterAdventHealth Heart of Florida Physician GroupComment on above:Performed By: #### GLULS ####Point of Care testing,Kvmcyhi2JUGS NOTIFY DR/RNAdventHealth Heart of Florida Physician GroupComment on above:Result Comment: PERFORMED BY:[address] [place], [place] [phone] MEDICAL DIRECTORELAINE CHAUDHARY M.D.Performed By: #### GLULS ####Point of Care testing,Glucose [Mass/Vol]463 mg/dLOff scale [facility] Physician GroupComment on above: Result Comment: Random Glucose Reference Range is dependent on time and content of last meal. Glucose of more than 200 mg/dL in a nonstressed, ambulatory subject supports the diagnosis of Diabetes Mellitus.Performed By: #### GLULS ####Point of Care testing,Jqcsgtf1Awa6: Cleaned MeterAdventHealth Heart of Florida Physician GroupComment on above:Result Comment: PERFORMED BY:[address] [place], [place] [phone] MEDICAL LEESA CHAUDHARY M.D.Performed By: #### GLULS [...] supports the diagnosis of Diabetes Hedy litus.PERFORMED BY:[address] [place], [place] [phone] MEDICAL LEESA CHAUDHARY M.D.Performed By: #### GLULS ####Point of Care testing,Glucose [Mass/Vol]304 mg/dLNoCentral Harnett Hospital Physician GroupComment on above:Result Comment: Random Glucose Reference Range is dependent on time and content of last meal. Glucose of more than 200 mg/dL in a nonstressed, ambulatory subject supports the diagnosis of Diabetes Mellitus.PERFORMED BY:[address] [place], [place] [phone] MEDICAL LEESA CHAUDHARY M.D.Performed By: #### GLULS ####Point of Care testing,Respiratory (Upper) Panel, PCRon 39-03-3093Agiaqirfetf (Upper) Panel, PCRNoCentral Harnett Hospital Physician GroupComment on above:Performed By: #### BIOFIRECOVNOTDE, RESP PANEL UPP. ####[address] [address] [place] Vancomycin,Randomon 62-67-1916Havmxzdhbq,Pxhexs94.7Ayawqm3.0-20.0The [facility] Physician GroupComment on above:Order Comment: Date of last dose?: [id number] Time of last dose?: 1030Result Comment: Last dose: -PERFORMED BY:[address] [place]YSIAJoseJaneFR[place], [place] [phone] MEDICAL LEESA CHAUDHARY M.D.Performed By: #### VANCR ####[address] [address] USAAlanine aminotransferase [Enzymatic activity/volume] in Serum or PlasmaOrdered By: PROVIDER TEMP on 36-68-9312MQV [Catalytic activity/Vol]38 U/LNormal7-52Madison HealthComment on above:Performed By: #### SCAN CBC, CMP ####[address] [address] USAAlbumin [Mass/volume] in Serum or Plasma by Bromocresol green (BCG) dye binding methoOrdered By: PROVIDER TEMP on 73-06-3869Oilataq BCG dye [Mass/Vol]3.1 g/dLLow3.5-5.7FClermont County HospitalAlkaline phosphatase [Enzymatic activity/volume] in Serum or PlasmaOrdered By: PROVIDER TEMP on 36-19-3464RGC [Catalytic activity/Vol]106 U/L Sytf21-935XufsmfvqyMadison HealthComment on above:Performed By: #### SCAN CBC, CMP ####[address] [place] [address] USAAmerican [place] BB Sendouton 43-56-3809Weehxzsh [place] BB Sendout Sent to [facility] Physician GroupComment on above:Result Comment: Sent to [facility] for further testing. Final report to follow.PERFORMED BY:[address] [place], [place] [phone] MEDICAL DIRECTORELAINE CHAUDHARY M.D.Anisocytosis [Presence] in Blood by Light microscopyOrdered By: Erin Guevara on 12-27-2024 Anisocytosis Ql (Bld)SlightNormalMadison HealthComment on above:Performed By: #### SCAN CBC, CMP ####[address] [place] [address] USAAppearance of UrineOrdered By: Erin Guevara on 35-71-4503Mbgztyosyl (U)CloudyCritically abnormalCleOhioHealth Shelby HospitalComment on above:Order Comment: Name Collection Type:: Clean- Voided MidstreamPerformed By: #### CUU, ADDONUAPLUS ####[address] USAAspartate aminotransferase [Enzymatic activity/volume] in Serum or PlasmaOrdered By: PROVIDER TEMP on 91-96-2216GDH [Catalytic activity/Vol]21 U/QMpuyln22-72AlgscueqjMadison HealthComment on above:Performed By: #### SCAN CBC, CMP ####[address] [place] [address] USABacteria [Presence] in Urine by AutomatedOrdered By: Erin Guevara on 34-44-1878Rcgbiuky Auto Ql (U)Rare [HPF]None SeenMadison HealthBasophils [#/volume] in Blood by Automated countOrdered By: Erin Guevara on 44-31-2117Bqzkrrwgs (Bld) [#/Vol]0.0 10*3/uLNormal0.0-0.2FClermont County HospitalComment on above:Performed By: #### SCAN CBC, CMP ####[address] [place] [address] USABasophils/100 leukocytes in Blood by Automated countOrdered By: Erin Guevara on 37-33-0539Kwckkvyad/100 WBC (Bld)0.5 %Normal .Madison HealthComment on above:Performed By: #### SCAN CBC, CMP ####[address] [place] Bilirubin Test strip Ql (U)Ordered By: Erin Guevara on 45-29-5632Qcluizhls Ql (U)NegativeNegativeMadison HealthBilirubin.total [Mass/volume] in Serum or PlasmaOrdered By: PROVIDER TEMP on 80-11-5245Mrgethnqw [Mass/Vol]0.8 mg/dLNormal0.3-1.0Madison HealthComment on above:Performed By: #### SCAN CBC, CMP ####[address] [address] USABlood Cultureon 80-74-8892Wvwlsfyp identified Cx Nom (Bld)NO GROWTH 5 DAYS PERFORMED BY: [facility] [address] [id number] PATHOLOGIST PUPPET MAKER ELAINE CHAUDHARY M.D.NormalThe Alleghany Health Physician GroupComment on above: Performed By: #### LACTIC, CUBLD ####[address] [address] USACOVID Cepheid NegativeOrdered By: Erin Guevara on 48-50-8031LHAN-CoV-2 (COVID-19) RNA RONY+probe Ql (Unsp spec)NegativeNormal NegativeMadison HealthComment on above:Result Comment: This is a duplicate Cepheid Xpert Xpress CoV-2/Flu/RSV Plus RNA by RT-PCR result letitia used for statistical tracking purpose only.PERFORMED BY:[address] [place], [place] [phone] MEDICAL LEESA CHAUDHARY M.D.Performed By: #### COVID19 FLU RSV, CEPHEID NEG ####[address] [address] USACOVID- 19 / Flu A/B / RSV PCRon 04-73-0109KGYP-CoV-2 (COVID-19) RNA RONY+probe Ql (Unsp spec)NormalThe Alleg[facility]any Health Physician GroupComment on above:Performed By: #### COVID19 FLU RSV, CEPHEID NEG ####[address] [address] USACalcium [Mass/volume] in Serum or PlasmaOrdered By: PROVIDER TEMP on 13-80-1279Skwqcms [Mass/Vol]7.5 mg/dLLow8.6-10.3FClermont County HospitalComment on above:Performed By: #### SCAN CBC, CMP ####[address] [address] [place] Capillary blood glucose measurement by glucometer (mass/volume)Ordered By: Erin Guevara on 29-31-8180Zbdtnqy [Mass/Vol]189 mg/dLNormalMadison HealthComment on above:Result Comment: Random Glucose Reference Range is dependent on time and content of last meal. Glucose of more than 200 mg/dL in a nonstressed, ambulatory subject supports the diagnosis of Diabetes Hedy litus.PERFORMED BY:[address] [place], [place] [phone] MEDICAL LEESA CHAUDHARY M.D.Performed By: #### GLULS ####Point of Care testing,Carbon dioxide, total [Moles/volume] in Serum or PlasmaOrdered By: PROVIDER TEMP on 09-26-8220XX1 [Moles/Vol]31.3 mmol/L High21.0-31.0Madison HealthComment on above:Performed By: #### SCAN CBC, CMP ####[address] [address] USAChloride [Moles/volume] in Serum or PlasmaOrdered By: PROVIDER TEMP on 11-34-2930Xusrrdll [Moles/Vol]91 mmol/TTft48-275MvjolybrsMadison HealthComment on above:Performed By: #### SCAN CBC, CMP ####[address] [address] USAColor of Urine by AutoOrdered By: Erin Guevara on 50-38-1485Awcof (U)YellowNormalYKettering Memorial HospitalComment on above:Order Comment: Name Collection Type:: Clean- Voided MidstreamPerformed By: #### VALERIE, ADDONUAPLUS ####[address] USAComprehensive Metabolic Panelon 00-05-9678Ksgtmjv [Mass/Vol]3.1 g/dLLow3.5-5.7The [facility] Comment on above:Performed By: #### SCAN CBC, CMP ####[address] [address] USACreatinine Clr Calc Dzdoysoe62.09 NormalKeralty Hospital Miami Physician GroupComment on above:Result Comment: PERFORMED BY:[address] [place], [place] [phone] MEDICAL LEESA CHAUDHARY M.D.Performed By: #### SCAN CBC, CMP ####[address] [address] USAGFR/1.73 sq M.predicted MDRD (S/P/Bld) [Vol rate/Area]22.869 mL/min/{1.73_m2} NormalThe Alleg[facility]any Health Physician GroupComment on above:Performed By: #### SCAN CBC, CMP ####[address] [address] [place] Creatinine [Mass/volume] in Serum or PlasmaOrdered By: PROVIDER TEMP on 90-80-2517Ihtjidsieg [Mass/Vol]2.30 mg/dLHigh0.60-1.20Madison HealthComment on above:Performed By: #### SCAN CBC, CMP ####[address] [address] USADipstick and Microscopicon 63-68-2508Nlhelcss,UrineRareNormalNone SeenThe Alleghany Health Physician GroupComment on above:Order Comment: Name Collection Type:: Clean-Voided MidstreamPerformed By: #### CUU, ADDONUAPLUS ####[address] USABilirubin,UrineNegativeNormalNegativeThe Alleg[facility]any Health Physician GroupComment on above:Order Comment: Name Collection Type:: Clean- Voided MidstreamPerformed By: #### CUU, ADDONUAPLUS ####[address] USAGlucose Ql (U)500 mg/dLNormal NormalThe [facility] Health Physician GroupComment on above:Order Comment: Name Collection Type:: Clean-Voided MidstreamPerformed By: #### CUU, ADDONUAPLUS ####[address] USAHyaline Casts,Eukdi1-6Ncyjne8-0Qsh [facility] Physician GroupComment on above:Order Comment: Name Collection Type:: Clean-Voided MidstreamPerformed By: #### CUU, ADDONUAPLUS ####[address] USAMucus,UrineRareNormalThe [facility] Health Physician GroupComment on above:Order Comment: Name Collection Type:: Clean-Voided MidstreamResult Comment: PERFORMED BY:[address] [place], [place] [phone] MEDICAL LEESA CHAUDHARY M.D.Performed By: #### CUU, ADDONUAPLUS ####[address], [place] USANitrite,UrineNegativeNormalNegativeThe Alleg[facility] Health Physician GroupComment on above:Order Comment: Name Collection Type:: Clean-Voided MidstreamPerformed By: #### CUU, ADDONUAPLUS ####[address], [place] USAOccult Blood,UrineNegativeNormalNegativeThe Alleg[facility] Health Physician GroupComment on above:Order Comment: Name Collection Type:: Clean- Voided MidstreamResult Comment: PERFORMED BY:[address] [place], [place] [phone] MEDICAL DIRECTORELAINE CHAUDHARY M.D.Performed By: #### CUU, ADDONUAPLUS ####[address] USARBC,Ffnbe5-1Ffbgvl5-1 The [facility] Health Physician GroupComment on above:Order Comment: Name Collection Type:: Clean-Voided MidstreamPerformed By: #### CUU, ADDONUAPLUS ####[address] USASpecificy [place],Urine1.232Hiiaih3.001-1.030The [facility] Health Physician GroupComment on above:Order Comment: Name Collection Type:: Clean-Voided MidstreamPerformed By: #### CUU, ADDONUAPLUS ####[address] USASquamous Epithelial Cell,Soboe9-5Awxvfs1-8Uaz [facility] Physician GroupComment on above:Order Comment: Name Collection Type:: Clean-Voided MidstreamPerformed By: #### CUU, ADDONUAPLUS ####[address] USAUrobilinogen,UrineNormalNormal NormalThe [facility] Health Physician GroupComment on above:Order Comment: Name Collection Type:: Clean-Voided MidstreamPerformed By: #### CUU, ADDONUAPLUS ####[facility] [facility], [place] USAWBC CLUMP, UrineRareNormalNone SeenThe Alleg[facility]any Health Physician GroupComment on above: Order Comment: Name Collection Type:: Clean-Voided MidstreamPerformed By: #### CUU, ADDONUAPLUS ####[address] [address] USAWBC,Pluej98-98Srwiff0-0Tfp [facility] Physician GroupComment on above: Order Comment: Name Collection Type:: Clean-Voided MidstreamPerformed By: #### CUU, ADDONUAPLUS ####[address] [address] USADirect Coombson 04-53-3608Lahwrqpxtygi AHGNegativeNormalNegativeThe [facility]any Health Physician GroupComment on above:Result Comment: PERFORMED BY:[address] [place], [place] [phone] MEDICAL DIRECTORELAINE CHAUDHARY M.D.ECG 12 lead ECGon 59-53-4526QPI 12 lead ECGNormalThSaint Alphonsus Neighborhood Hospital [facility] Physician [facility] Va Medical CenterEosinophils [#/volume] in Blood by Automated countOrdered By: Erin Guevara on 39-74-7994Ycknkstgpmy (Bld) [#/Vol] 0.2 10*3/uLNormal0.0-0.45Madison HealthComment on above: Performed By: #### SCAN CBC, CMP ####[address] USAEosinophils/100 leukocytes in Blood by Automated countOrdered By: Erin Guevara on 10-91-8323Ivzhcujgmto/100 WBC (Bld)11.8 % Normal.Madison HealthComment on above:Performed By: #### SCAN CBC, CMP ####[address] USAEpithelial cells.squamous [#/area] in Urine sediment by Automated count Ordered By: Erin Guevara on 39-64-8497Ciyokllqan cells.squamous Auto (Urine sed) [#/Area]5-9 [HPF]High0-2FClermont County HospitalErythrocyte distribution width [Ratio] by Automated countOrdered By: Erin Guevara on 03-07-5304Ukgsykntlyo distribution width (RBC) [Ratio]15.0 %Jgjfkd70.9-15.3 Madison HealthComment on above:Performed By: #### SCAN CBC, CMP ####[address] [place] [address] [facility] Erythrocyte morphology finding [Identifier] in BloodOrdered By: SAUL GONZALES on 00-46-0489JSQ morphology finding Nom (Bld)N/AFClermont County Hospital Erythrocytes [#/area] in Urine sediment by Automated countOrdered By: Erin Guevara on 93-32-0053TWP Auto (Urine sed) [#/Area]1-2 [HPF]0-4FClermont County HospitalErythrocytes [#/volume] in Blood by Automated countOrdered By: Erin Guevara on 71-67-5727SYY (Bld) [#/Vol]3.97 10*6/uLNormal3.60-5.00 Madison HealthComment on above:Performed By: #### SCAN CBC, CMP ####[address] [place] [address] [facility] Fibrinogenon 25-78-8055Civmxplqqg980 mg/vCVwzvvh167-211Fea [facility] Physician GroupComment on above:Result Comment: A hematocrit value greater than 55% may lead to inaccurate results in coagulation testing. Patients having hematocrit values >55% require a special collection tube for coagulation studies. Please contact the laboratory at [phone] for redraw instructions.PERFORMED BY:[address] [place], [place] [phone] MEDICAL DIRECTORELAINE CHAUDHARY M.D.Performed By: #### PATH SLIDE REV, PT, FIB-C, PTT ####[address] [place] [address] USAFibrinogen [Mass/volume] in Platelet poor plasma by Coagulation assayOrdered By: Margarito Rajan on 49-30-6910Lrwdbawbij Coag (PPP) [Mass/Vol]291 mg/dD475-181RxhkhpzpdMadison HealthGlomerular filtration rate [Volume Rate/Area] in Serum, Plasma or Blood by CreatinineOrdered By: PROVIDER TEMP on 51-01-7441Drtpokzryn filtration rate [Volume Rate/Area] in Serum, Plasma or Blood by Htnrlqfpqf47.869 mL/MinMadison HealthGlucose [Mass/volume] in Serum or PlasmaOrdered By: PROVIDER TEMP on 25-52-7762Givnpil [Mass/Vol]194 mg/oQXtjt86-204GdiknexdyMadison Health Comment on above:Result Comment: Random Glucose Reference Range is dependent on time and content of last meal. Glucose of more than 200 mg/dL in a nonstressed, ambulatory subject supports the diagnosis of Diabetes Mellitus. ADA recommended reference rangePerformed By: #### SCAN CBC, CMP ####[facility] [address] [place] [address] USAGlucose [Mass/volume] in Urine by Test stripOrdered By: Erin Guevara on 03-46-1294Rwaysdz Test strip (U) [Mass/Vol] 500 mg/dLHighNormalMadison HealthHematocrit [Volume Fraction] of Blood by Automated countOrdered By: Erin Guevara on 66-86-6365Kwkmnbvcgy (Bld) [Volume fraction]34.7 %Jpwbfx26.0-46.4FClermont County Hospital Comment on above:Performed By: #### SCAN CBC, CMP ####[address] [address] USAHemoglobin Test strip Ql (U)Ordered By: Erin Guevara on 73-82-4181Aluwwhldwd Ql (U)NegativeNegativeMadison HealthHemoglobin [Mass/volume] in BloodOrdered By: Erin Guevara on 56-93-3679Oqfelpuwzm (Bld) [Mass/Vol]11.6 g/dLLow11.8-15.4FClermont County HospitalComment on above:Performed By: #### SCAN CBC, CMP ####[address] [address] USAHyaline casts [#/area] in Urine sediment by Automated countOrdered By: Erin Guevara on 80-87-0556Kvhqlwb casts Auto (Urine sed) [#/Area]0-8 [LPF]0-8Madison HealthINR in Platelet poor plasma by Coagulation assayOrdered By: Margarito Rajan on 77-49-4864SAV Coag (PPP) [Relative time]1.3 {INR}Normal Madison HealthComment on above:Result Comment: INR Therapeutic Range [...] #### PATH SLIDE REV, PT, FIB-C, PTT ####[address] [address] USAKetones [Presence] in Urine by Test stripOrdered By: Erin Guevara on 14-26-5981Gxmieev Ql (U)NegativeNormal NegativeMadison HealthComment on above:Order Comment: Name Collection Type:: Clean-Voided MidstreamPerformed By: #### CUU, ADDONUAPLUS ####[address] USALon 57-23-3823YUyxzgiPii [facility] Health Physician GroupLactate [Moles/volume] in Serum or PlasmaOrdered By: Erin uGevara on 22-98-1819Gqctgqp [Moles/Vol]1.7 mmol/L Normal0.5-1.9Madison HealthComment on above:Result Comment: Lactic Acid reference range has been updated to 0.5 ? 1.9 mmol/L and the critical range of 2.0 or greater.PERFORMED BY:[address] [place], [place] [phone] MEDICAL LEESA CHAUDHARY M.D.Performed By: #### LACTIC, CUBLD ####[address] [address] USALeukocyte clumps [Presence] in Urine by AutomatedOrdered By: Erin Guevara on 12-27-2024 Leukocyte clumps Auto Ql (U)Rare [LPF][facility] CenterLeukocyte esterase [Presence] in Urine by Test stripOrdered By: Erin Guevara on 58-67-7779Srzqiuwsy esterase Test strip Ql (U)2+NormalNegative Madison HealthComment on above:Order Comment: Name Collection Type:: Clean-Voided MidstreamPerformed By: #### CUU, ADDONUAPLUS ####[facility] [address] [place], [place] USALeukocytes [#/area] in Urine sediment by Automated countOrdered By: Erin Guevara on 12-45-9364GHH Auto (Urine sed) [#/Area]10-19 [HPF]High0-4FClermont County Hospital Leukocytes [#/volume] corrected for nucleated erythrocytes in Blood by Automated counOrdered By: Erin Guevara on 36-15-1576ANW corrected for nucl RBC Auto (Bld) [#/Vol]1.8 10*3/uLLow3.8-11.6FClermont County HospitalLeukocytes [#/volume] in Blood by Automated countOrdered By: Erin Guevara on 12-27-2024 WBC (Bld) [#/Vol]1.8 10*3/uLLow3.8-11.6FClermont County HospitalComment on above:Performed By: #### SCAN CBC, CMP ####[facility] [address] [place] [address] USALymphocytes [#/volume] in Blood by Automated countOrdered By: Erin Guevara on 62-04-0279Lvagopwphpv (Bld) [#/Vol]0.8 10*3/uLLow1.00-4.8Madison HealthComment on above:Performed By: #### SCAN CBC, CMP ####[facility] [address] [place] [address] USALymphocytes/100 leukocytes in Blood by Automated countOrdered By: Erin Guevara on 84-34-3644Jvbwouyfyfq/100 WBC (Bld)44.4 % Normal.Madison HealthComment on above:Performed By: #### SCAN CBC, CMP ####[address] [place] [id number] [facility] [Entitic mass] by Automated countOrdered By: Erin Guevara on 12-27-2024 MCH (RBC) [Entitic mass]29.3 vkHuigjl09.7-34.3FClermont County Hospital Comment on above:Performed By: #### SCAN CBC, CMP ####[address] [facility] Auto (RBC) [Mass/Vol]Ordered By: Erin Guevara on 23-38-1485LERA (RBC) [Mass/Vol]33.5 g/dL32.0-35.0Madison HealthMCV [Entitic volume] by Automated countOrdered By: Erin Guevara on 45-75-3673MRK (RBC) [Entitic vol]87.3 vEMuvitv93-211KjtqdszdvMadison HealthComment on above:Performed By: #### SCAN CBC, CMP ####[address] Monocyte distribution width [Entitic volume] in Blood by AutomatedOrdered By: Erin Guevara on 60-79-1424Nwuolith distribution width Auto (Bld) [Entitic vol] 44.69 %High0.00-20.00Madison HealthMonocytes [#/volume] in Blood by Automated countOrdered By: Erin Guevara on 35-21-6726Noqsrgpce (Bld) [#/Vol]0.2 10*3/uLNormal0.0-0.8Madison HealthComment on above:Performed By: #### SCAN CBC, CMP ####[address] USAMonocytes/100 leukocytes in Blood by Automated countOrdered By: Erin Guevara on 71-94-4458Dwlzuxzwp/100 WBC (Bld)10.0 % Normal.Madison HealthComment on above:Performed By: #### SCAN CBC, CMP ####[facility] [address] [place] [address] USAMucus [Presence] in Urine by AutomatedOrdered By: Erin Guevara on 48-98-7604Xzmen Auto Ql (U)Rare [LPF][facility] Neutrophils [#/volume] in Blood by Automated countOrdered By: Erin Guevara on 16-71-6225Hbjklhitojc (Bld) [#/Vol]0.6 10*3/uLLow1.8-7.7FClermont County HospitalComment on above:Performed By: #### SCAN CBC, CMP ####[facility] [address] [place] [address] USANeutrophils/100 leukocytes in Blood by Automated countOrdered By: Erin Guevara on 12-27-2024 Neutrophils/100 WBC (Bld)33.3 %Normal.Madison HealthComment on above:Performed By: #### SCAN CBC, CMP ####[facility] [address] [place] [address] USANitrite Test strip Ql (U)Ordered By: Erin Guevara on 87-94-9080Kqtyaqo Ql (U)NegativeNegativeMadison HealthNo Panel InformationOrdered By: Margarito Rajan on 60-22-6720Xouncmn path reviewMadison HealthNo Panel InformationOrdered By: SAUL BRIDGESP on .Madison HealthNucleated erythrocytes [Presence] in Blood by Automated countOrdered By: Erin Guevara on 12-27-2024 Nucleated RBC Auto Ql (Bld)0.2 /100{WBC}0-0.5FClermont County Hospital Ovalocytes [Presence] in Blood by Light microscopyOrdered By: Erin Guevara on 46-48-5727Snhonggwyn LM Ql (Bld)SlightMadison HealthPartial Thromboplastin Timeon 97-35-3261fGAJ Coag (Bld) [Time]26.2 nVgvyyq31.1-36.5The [facility] Health Physician GroupComment on above:Result Comment: A hematocrit value greater than 55% may lead to inaccurate results in coagulation testing. Patients having hematocrit values >55% require a special collection tube for coagulation studies. Please contact the laboratory at [phone] for redraw instructions. Performed By: #### PATH SLIDE REV, PT, FIB-C, PTT ####[facility] [place] [address] [facility]CHOPathologist Slide Reviewon 12-27-2024 Pathologist Slide ReviewOrdered Path ReviewAdventHealth Heart of Florida Physician Group Comment on above:Result Comment: PERFORMED BY:[address] [place], [place] [phone] MEDICAL DIRECTORELAINE CHAUDHARY M.D.Performed By: #### PATH SLIDE REV, PT, FIB-C, PTT ####[address] [place] [address] [facility] Pathology study report documentOrdered By: Aldair Blake on 09-60-7632Khwxijtus study [facility] Other Platelet Pheresis LRon 86-03-9583Shyocedt Pheresis LR TRANSFUSED 12/29/24 [facility] Physician GroupPlatelet adequacy [Presence] in Blood by Light microscopyOrdered By: Erin Guevara on 12-27-2024 Platelets LM Ql (Bld)DecreasedMercy HealthPlatelet mean volume [Entitic volume] in Blood by Automated countOrdered By: Erin Guevara on 58-16-8165Iiczioth mean volume (Bld) [Entitic vol]12.1 fLHigh6.3-10.7 Madison HealthComment on above:Performed By: #### SCAN CBC, CMP ####[address] [place] [address] [facility] Platelet morphology finding [Identifier] in BloodOrdered By: Erin Guevara on 65-16-7063Gqzpfzpo morphology finding Nom (Bld)NormalMercy HealthPlatelets [#/volume] in Blood by Automated countOrdered By: Erin Guevara on 54-33-3782Eyeiavdye (Bld) [#/Vol]5 10*3/uLOff scale sij896-697 Madison HealthComment on above:Result Comment: Critical value result called at 0545 on 12/27/24Performed By: #### SCAN CBC, CMP ####[address] [address] USAPoikilocytosis [Presence] in Blood by Light microscopyOrdered By: Erin Guevara on 12-27-2024 Poikilocytosis LM Ql (Bld)[facility] CenterPolychromasia [Presence] in Blood by Light microscopyOrdered By: Erin Guevara on 12-27-2024 Polychromasia LM Ql (Bld)[facility] Medical CenterPotassium [Moles/volume] in Serum or PlasmaOrdered By: PROVIDER TEMP on 12-27-2024 Potassium [Moles/Vol]4.0 mmol/LNormal3.5-5.1FClermont County Hospital Comment on above:Performed By: #### SCAN CBC, CMP ####[address] [address] USAProtein [Mass/volume] in Serum or PlasmaOrdered By: PROVIDER TEMP on 49-72-8230Bgxsidf [Mass/Vol]5.9 g/dLLow 6.4-8.9Madison HealthComment on above:Performed By: #### SCAN CBC, CMP ####[address] [address] USAProtein [Mass/volume] in Urine by Test stripOrdered By: Erin Guevara on 71-69-6462Pqzvhve (U) [Mass/Vol]30 mg/dLNormalNegativeMadison HealthComment on above:Order Comment: Name Collection Type:: Clean-Voided MidstreamPerformed By: #### CUU, ADDONUAPLUS ####[address] [place], [place] USAProthrombin time (PT)Ordered By: Margarito Rajan on 48-53-2640UE Coag (PPP) [Time]15.1 sHigh9.0-12.9Madison HealthComment on above:Result Comment: A hematocrit value greater than 55% may lead to inaccurate results in coagulation testing. Patients having hematocrit values >55% require a special collection tube for coagulation s benjamin. Please contact the laboratory at [phone] for redraw instructions. Performed By: #### PATH SLIDE REV, PT, FIB-C, PTT ####[address] [address] USAScan and CBCon 02-16-6090Esbw Corpuscular HGB Conc33.5 g/rJJmzsfm90.0-35.0The [facility] Health Physician GroupComment on above:Performed By: #### SCAN CBC, CMP ####[address] [address] USAMonocytes/100 WBC (Bld)44.69 %High 0.00-20.00The [facility] Health Physician GroupComment on above:Result Comment: For adults in ED, MDW > 20.0 may be associated with a higher risk of sepsis during the first 12 hrs of hospital admission The predictive value of MDW for identifying sepsis in patients with hematological abnormalities has not been establishedPerformed By: #### SCAN CBC, CMP ####[address] [address] USANRBC%0.2 /100{WBC}Normal0-0.5The [facility] Health Physician GroupComment on above:Performed By: #### SCAN CBC, CMP ####[address] [address] [place] OvalocytesSlightNoCentral Harnett Hospital Physician GroupComment on above:Performed By: #### SCAN CBC, CMP ####[address] [address] USAPlatelet EstimateDecreasedNormalAdventHealth Heart of Florida Physician GroupComment on above:Performed By: #### SCAN CBC, CMP ####[address] [address] USAPlatelet Morphology NormalNormalAdventHealth Heart of Florida Physician GroupComment on above:Result Comment: PERFORMED BY:[address] [place], [place] [phone] MEDICAL LEESA CHAUDHARY M.D.Performed By: #### SCAN CBC, CMP ####[facility] [place] [address] USAPoikilocytosisSIredell Memorial Hospital Physician GroupComment on above:Performed By: #### SCAN CBC, CMP ####[address] [address] USAPolychromasiaSIredell Memorial Hospital Physician GroupComment on above:Performed By: #### SCAN CBC, CMP ####[address] [address] USAWhite Blood Count1.8 [CFU]/mLLow3.8-11.6The [facility] Health Physician GroupComment on above:Performed By: #### SCAN CBC, CMP ####[address] [address] USASerum globulin measurement by calculation (mass/volume)Ordered By: PROVIDER TEMP on 61-89-7239Dgrxqmmj (S) [Mass/Vol]2.8 g/dLNoSt. Mary's Medical CenterComment on above:Performed By: #### SCAN CBC, CMP ####[address] [address] USASerum or plasma albumin/globulin mass ratioOrdered By: PROVIDER TEMP on 12-27-2024 Albumin/Globulin [Mass ratio]1.1 {ratio}[facility] Comment on above:Performed By: #### SCAN CBC, CMP ####[address] [address] USASerum or plasma anion gap determinationOrdered By: PROVIDER TEMP on 04-80-3487Fzcuv gap [Moles/Vol]12.7 mmol/LNormal6.0-15.0Madison HealthComment on above:Performed By: #### SCAN CBC, CMP ####[address] [address] USASodium [Moles/volume] in Serum or PlasmaOrdered By: PROVIDER TEMP on 45-80-8962Ggzbgl [Moles/Vol]131 mmol/YYls107-636JuqczbevoMadison HealthComment on above:Performed By: #### SCAN CBC, CMP ####[address] [place] [address] [facility] Specific gravity Test strip (U) [Rel density]Ordered By: Erin Guevara on 28-14-7438Vcicryxi gravity (U) [Rel density]1.0191.001-1.030Madison HealthType and Screenon 61-27-0600SCH and Rh group Nom (Bld)Blood group A Rh(D) positiveNormCleveland Clinic Martin South Hospital Physician [facility] Medical CenterComment on above:Order Comment: communicated to JYOTSNA WU Transfuse now? Y Number of units to transfuse now? 75255) Transfuse now? Y Number of units to transfuse now? 1Result Comment: PERFORMED BY:[facility] [place], [place] [phone] MEDICAL DIRECTORELAINE CHAUDHARY M.D.US renal BI on 99-48-8835IP renal BINormalThe [facility] Hospital Of Nittany ValleyUrea nitrogen [Mass/volume] in Serum or PlasmaOrdered By: SAUL GONZALES on 18-82-5805Ikva nitrogen [Mass/Vol]38 mg/dLSummers County Appalachian Regional Hospital7-25Madison HealthComment on above:Performed By: #### SCAN CBC, CMP ####[address] [place] [address] USAUrine Cultureon 28-69-8268Iilmstcj identified Cx Nom (U)Urine Culture Results >100,000 col/ml Mixed Bacterial Skin Contaminants 2 Days PERFORMED BY: [facility] [address] [place] [address] PATHOLOGIST PUPPET MAKER ELAINE CHAUDHARY M.D.NormalThe [facility] Physician [facility] Medical CenterComment on above: Performed By: #### CUU, ADDONUAPLUS ####[address] USAUrobilinogen Test strip (U) [Mass/Vol]Ordered By: Erin Guevara on 17-19-9029Ejedzgpupwmv (U) [Mass/Vol]Normal mg/dLNormal Madison HealthX-ray reportOrdered By: Domenico Brown on 64-02-1441Tgmjh reportMadison HealthXR chest 2V*on 12-27-2024 XR chest 2V*NormalThe [facility] Physician GroupaPTT in Platelet poor plasma by Coagulation assayOrdered By: Margarito Rajan on 52-96-7249iSPV Coag (PPP) [Time] 26.2 s25.1-36.5FClermont County HospitalpH of Urine by Test stripOrdered By: Erin Guevara on 28-69-8362tP (U)5.5 [pH]Normal5.0-9.0Madison HealthComment on above:Order Comment: Name Collection Type:: Clean- Voided MidstreamPerformed By: #### CUU, ADDONUAPLUS ####[address] [place], [place] [facility]CHOAlanine aminotransferase [Enzymatic activity/volume] in Serum or PlasmaOrdered By: Roxane Bills on 94-77-5022WPM [Catalytic activity/Vol]49 U/LNormal7-52Madison HealthComment on above:Performed By: #### CMP, DIFF CBC ####[address] [place] [address] USAAlbumin [Mass/volume] in Serum or Plasma by Bromocresol green (BCG) dye binding methoOrdered By: Roxane Bills on 46-92-9414Dmkpmow BCG dye [Mass/Vol]3.1 g/dLLow3.5-5.7FClermont County HospitalAlkaline phosphatase [Enzymatic activity/volume] in Serum or Plasma Ordered By: Roxane Bills on 72-00-0708EDK [Catalytic activity/Vol]110 U/DVahv53-356 Madison HealthComment on above:Performed By: #### CMP, DIFF CBC ####[address] [place] [address] [facility] Aspartate aminotransferase [Enzymatic activity/volume] in Serum or PlasmaOrdered By: Roxane Bills on 14-03-4229YEG [Catalytic activity/Vol]29 U/CAmtsbx68-86 Madison HealthComment on above:Performed By: #### CMP, DIFF CBC ####[facility] [place] [address] [place] Band form neutrophils/100 leukocytes in Blood by Manual countOrdered By: Roxane Sanju on 91-51-6896Cjle form neutrophils/100 WBC (Bld)4 %Normal0-5FClermont County HospitalComment on above:Performed By: #### CMP, DIFF CBC ####[address] [address] [place] Basophils Auto (Bld) [#/Vol]Ordered By: Roxane Sanju on 43-19-7427Zlwapuqjp (Bld) [#/Vol]N/[facility] Healthcare SystemBasophils/100 WBC Auto (Bld)Ordered By: Roxane Sanju on 75-73-0514Fdhewvtmi/100 WBC (Bld)N/[facility] Healthcare SystemBilirubin.total [Mass/volume] in Serum or PlasmaOrdered By: Roxane Bills on 68-73-9390Fskwpxjub [Mass/Vol]0.6 mg/dLNormal0.3-1.0Madison HealthComment on above:Performed By: #### CMP, DIFF CBC ####[address] USACalcium [Mass/volume] in Serum or PlasmaOrdered By: Roxane Bills on 52-37-7173Gqatwhg [Mass/Vol]7.5 mg/dLLow 8.6-10.3FClermont County HospitalComment on above:Performed By: #### CMP, DIFF CBC ####[address] USACarbon dioxide, total [Moles/volume] in Serum or PlasmaOrdered By: Roxane Bills on 28-53-6022TU3 [Moles/Vol]35.1 mmol/LHigh21.0-31.0Madison HealthComment on above:Performed By: #### CMP, DIFF CBC ####[address] USAChloride [Moles/volume] in Serum or PlasmaOrdered By: Roxane Bills on 49-75-5466Mfiparcb [Moles/Vol]94 mmol/FGdr01-799KvwfmsyquMadison HealthComment on above: Performed By: #### CMP, DIFF CBC ####[facility] [place] [address] USAComprehensive Metabolic Panelon 04-51-9841Jdnqiur [Mass/Vol]3.1 g/dLLow3.5-5.7The [facility] Physician GroupComment on above: Performed By: #### CMP, DIFF CBC ####[address] [place] [address] USACreatinine Clr Calc Eorarmsg99.13NoCentral Harnett Hospital Physician GroupComment on above:Result Comment: PERFORMED BY:[address] [place], [place] [phone] MEDICAL DIRECTORELAINE CHAUDHARY M.D.Performed By: #### CMP, DIFF CBC ####[address] [place] [address] USAGFR/1.73 sq M.predicted MDRD (S/P/Bld) [Vol rate/Area]21.622 mL/min/{1.73_m2}NormalThe [facility] Physician [facility] Medical CenterComment on above:Performed By: #### CMP, DIFF CBC ####[address] [address] [facility] Comprehensive metabolic panelon 90-11-1140Aycmvsi [Mass/Vol]3.1 g/dLLow3.5 - 5.7 g/dLNOMS HealthcareAlbumin/Globulin [Mass [...] - 1.20 mg/dL NOMS HealthcareCREATININE CLR CALC HYBCGRQU62.13NOMS HealthcareGFR/1.73 sq M.predicted MDRD (S/P/Bld) [Vol rate/Area]21.622 mL/min/{1.73_m2}[facility] Globulin (S) [Mass/Vol]2.5 g/dLNOPA HealthcareGlucose [Mass/Vol]82 mg/dL70 - 100 mg/dLNOPA HealthcareComment on above:Random Glucose Reference Range is dependent on time and content of last meal. Glucose of more than 200 mg/dL in a nonstressed, ambulatory subject supports the diagnosis of Diabetes Mellitus. ADA recommended reference range Interpretation and review of laboratory resultsAbnormalNOMS HealthcarePotassium [Moles/Vol]4.2 mmol/L3.5 - 5.1 mmol/LNOMS HealthcareProtein [Mass/Vol]5.6 g/dL Low6.4 - 8.9 g/dLNOPA HealthcareSodium [Moles/Vol]136 mmol/L136 - 145 mmol/LNOMS HealthcareUrea nitrogen [Mass/Vol]32 mg/dLHigh7 - 25 mg/dLNOSt. Luke's HospitalNOPA HealthcareCreatinine [Mass/volume] in Serum or PlasmaOrdered By: Roxane Bills on 49-04-2136Zdpddinmuj [Mass/Vol]2.41 mg/dLHigh0.60-1.20Madison HealthComment on above:Performed By: #### CMP, DIFF CBC ####[facility] [address] [place] [address] USADiff and CBCon 05-67-3656Uptu Corpuscular HGB Conc32.4 g/jWDzsvef47.0-35.0The [facility] Hospital Of Nittany ValleyComment on above:Performed By: #### CMP, DIFF CBC ####[facility] [place] [address] USAPlatelet EstimateDecreasedNormalNormal The [facility]lands Physician GroupComment on above:Performed By: #### CMP, DIFF CBC ####[address] [address] [place] Platelet MorphologyNormalNormalNormalThSaint Alphonsus [facility] Physician [facility] Va Medical CenterComment on above:Result Comment: PERFORMED BY:[address] [place], [place] [phone] MEDICAL DIRECTORELAINE CHAUDHARY M.D.Performed By: #### CMP, DIFF CBC ####[address] [address] USAReactive Lymphocytes2 %Normal0-12The [facility] Physician [facility] Medical CenterComment on above:Performed By: #### CMP, DIFF CBC ####[address] [address] USAWhite Blood Count2.8 [CFU]/mLLow3.8-11.6The [facility] Physician GroupComment on above:Performed By: #### CMP, DIFF CBC ####[address] [address] USAEosinophils Auto (Bld) [#/Vol]Ordered By: Roxane Bills on 12-26-2024 Eosinophils (Bld) [#/Vol]N/AFClermont County HospitalEosinophils/100 WBC Auto (Bld)Ordered By: Roxane Bills on 83-24-5478Jgyxgjymvqh/100 WBC (Bld)N/A Madison HealthEosinophils/100 leukocytes in Blood by Manual countOrdered By: Roxane Bills on 74-44-8029Lrqcmifaazq/100 WBC (Bld)29 %High1-3 Madison HealthComment on above:Performed By: #### CMP, DIFF CBC ####[address] [address] [place] Erythrocyte distribution width [Ratio] by Automated countOrdered By: Roxane Bills on 42-82-8812Xcelrwdklfv distribution width (RBC) [Ratio]15.3 %Ctcygh63.9-15.3 Madison HealthComment on above:Performed By: #### CMP, DIFF CBC ####[facility] [place] [address] [place] Erythrocyte morphology finding [Identifier] in BloodOrdered By: Roxane Bills on 81-25-7371NXC morphology finding Nom (Bld)NormalNormalNormalMadison HealthComment on above:Performed By: #### CMP, DIFF CBC ####[address] [place] [address] USAErythrocytes [#/volume] in Blood by Automated countOrdered By: Roxane Bills on 63-59-2302NNN (Bld) [#/Vol]4.16 10*6/uLNormal3.60-5.00Madison HealthComment on above:Performed By: #### CMP, DIFF CBC ####[address] [place] [address] USAGlomerular filtration rate [Volume Rate/Area] in Serum, Plasma or Blood by CreatinineOrdered By: Roxane Bills on 39-69-1580Cnecpdlxnd filtration rate [Volume Rate/Area] in Serum, Plasma or Blood by Pdytqorlep89.622 mL/MinMadison HealthGlucose [Mass/volume] in Serum or PlasmaOrdered By: Roxane Bills on 15-57-4261Icxcszb [Mass/Vol]82 mg/yIAqpskz81-986DxzogwgrpMadison HealthComment on above: Result Comment: Random Glucose Reference Range is dependent on time and content of last meal. Glucose of more than 200 mg/dL in a nonstressed, ambulatory subject supports the diagnosis of Diabetes Mellitus. ADA recommended reference rangePerformed By: #### CMP, DIFF CBC ####[address] [place] [address] USAHematocrit [Volume Fraction] of Blood by Automated countOrdered By: Roxane Bills on 72-15-2380Cuvxwyfsrc (Bld) [Volume fraction]37.0 %Amblyh53.0-46.4FClermont County HospitalComment on above: Performed By: #### CMP, DIFF CBC ####[address] [place] [address] USAHemoglobin [Mass/volume] in BloodOrdered By: Roxane Bills on 39-50-6853Guliueeigg (Bld) [Mass/Vol]12.0 g/bIChqavm87.8-15.4FClermont County HospitalComment on above:Performed By: #### CMP, DIFF CBC ####[facility] [place] [address] [place] Leukocytes [#/volume] corrected for nucleated erythrocytes in Blood by Automated counOrdered By: Roxane Bills on 56-27-6500FXV corrected for nucl RBC Auto (Bld) [#/Vol]2.8 10*3/uLLow3.8-11.6FClermont County HospitalLeukocytes [#/volume] in Blood by Automated countOrdered By: Roxane Bills on 68-45-5445AUT (Bld) [#/Vol]2.8 10*3/uLLow3.8-11.6FClermont County HospitalComment on above:Performed By: #### CMP, DIFF CBC ####[address] [place] [id number] USALymphocytes Auto (Bld) [#/Vol]Ordered By: Roxane Bills on 90-47-7633Afpkrsjgpnt (Bld) [#/Vol]N/[facility] Lymphocytes/100 WBC Auto (Bld)Ordered By: Roxane Bills on 76-95-1368Zbhkiokogws/100 WBC (Bld)N/[facility] Healthcare SystemLymphocytes/100 leukocytes in Blood by Manual countOrdered By: Roxane Bills on 28-24-8739Xqzwlzrxtme/100 WBC (Bld)23 %Jaskqm36-28KgzcgpflzMadison HealthComment on above:Performed By: #### CMP, DIFF CBC ####[address] [address] USAMCH [Entitic mass] by Automated countOrdered By: Roxane Bills on 25-41-3475EXU (RBC) [Entitic mass]28.9 ykJaglnh02.7-34.3FClermont County HospitalComment on above:Performed By: #### CMP, DIFF CBC ####[facility] [place] [address] [facility] CITYHC Auto (RBC) [Mass/Vol]Ordered By: Roxane Bills on 75-48-9536TEKG (RBC) [Mass/Vol] 32.4 g/dL32.0-35.0Madison HealthMCV [Entitic volume] by Automated countOrdered By: Roxane Bills on 26-84-4347BTP (RBC) [Entitic vol]89.0 fL Ynntan96-555BrooimrigMadison HealthComment on above:Performed By: #### CMP, DIFF CBC ####[address] [place] [address] [facility]CHOMonocytes Auto (Bld) [#/Vol]Ordered By: Roxane Bills on 12-26-2024 Monocytes (Bld) [#/Vol]N/[facility] SystemMonocytes/100 WBC Auto (Bld)Ordered By: Roxane Bills on 94-25-4847Ffnzblgmb/100 WBC (Bld)N/[facility] Healthcare SystemMonocytes/100 leukocytes in Blood by Manual countOrdered By: Roxane Bills on 72-69-9027Ujsxzuryq/100 WBC (Bld)7 %Normal2-11Madison HealthComment on above:Performed By: #### CMP, DIFF CBC ####[address] [place] Neutrophils Auto (Bld) [#/Vol]Ordered By: Rxoane Bills on 58-94-3750Wusspcfjznd (Bld) [#/Vol]N/[facility] Healthcare SystemNeutrophils/100 WBC Auto (Bld) Ordered By: Roxane Bills on 09-44-8532Nohrfaaunct/100 WBC (Bld)N/[facility] Healthcare SystemNo Panel InformationOrdered By: Roxane Bills on 12-26-2024 25.13Madison HealthNucleated erythrocytes [Presence] in Blood by Automated countOrdered By: Roxane Bills on 10-32-3790Movskxjcq RBC Auto Ql (Bld)N/[facility] Healthcare SystemPlatelet adequacy [Presence] in Blood by Light microscopyOrdered By: Roxane Bills on 84-80-8775Govnpctcf LM Ql (Bld) DecreasedNoSt. Mary's Medical CenterPlatelet mean volume [Entitic volume] in Blood by Automated countOrdered By: Roxane Bills on 31-79-1546Pwgjnzfw mean volume (Bld) [Entitic vol]12.0 fLHigh6.3-10.7FClermont County HospitalComment on above:Performed By: #### CMP, DIFF CBC ####[address] USAPlatelet morphology finding [Identifier] in BloodOrdered By: Roxane Bills on 83-47-5211Ncicqykp morphology finding Nom (Bld)NormalNormWyandot Memorial HospitalPlatelets [#/volume] in Blood by Automated countOrdered By: Roxane Bills on 12-26-2024 Platelets (Bld) [#/Vol]4 10*3/uLOff scale wzo617-134ZgqferehfMadison HealthComment on above:Result Comment: Critical value result called at 1126 on 12/26/24Performed By: #### CMP, DIFF CBC ####[address] [address] USAPotassium [Moles/volume] in Serum or Plasma Ordered By: Roxane Bills on 81-97-5994Qfwppblwq [Moles/Vol]4.2 mmol/LNormal3.5-5.1 Madison HealthComment on above:Performed By: #### CMP, DIFF CBC ####[address] [address] [place] Protein [Mass/volume] in Serum or PlasmaOrdered By: Roxane Bills on 12-26-2024 Protein [Mass/Vol]5.6 g/dLLow6.4-8.9Madison HealthComment on above:Performed By: #### CMP, DIFF CBC ####[address] [address] USASegmented neutrophils/100 leukocytes in Blood by Manual countOrdered By: Roxane Bills on 31-22-9165Gcnrxlkiz neutrophils/100 WBC (Bld)36 %Xjg59-74SctvmuxihMadison HealthComment on above:Performed By: #### CMP, DIFF CBC ####[address] [address] USASerum globulin measurement by calculation (mass/volume)Ordered By: Roxane Bills on 14-95-6864Lfgspzei (S) [Mass/Vol]2.5 g/dLNormalMadison HealthComment on above:Performed By: #### CMP, DIFF CBC ####[address] USASerum or plasma albumin/globulin mass ratioOrdered By: Roxane Bills on 91-23-4495Tjnanra/Globulin [Mass ratio]1.2 {ratio}Mercy HealthComment on above: Performed By: #### CMP, DIFF CBC ####[address] USASerum or plasma anion gap determinationOrdered By: Roxane Bills on 14-21-8741Dkmiu gap [Moles/Vol]11.1 mmol/LNormal6.0-15.0Madison HealthComment on above:Performed By: #### CMP, DIFF CBC ####[address] USASodium [Moles/volume] in Serum or PlasmaOrdered By: Roxane Bills on 34-25-4004Bukaes [Moles/Vol]136 mmol/MQqajzd040-833DhmzofyiaMadison HealthComment on above:Performed By: #### CMP, DIFF CBC ####[address] USAUrea nitrogen [Mass/volume] in Serum or Plasma Ordered By: Roxane Bills on 14-04-1127Paug nitrogen [Mass/Vol]32 mg/dLHigh7-25 Madison HealthComment on above:Performed By: #### CMP, DIFF CBC ####[address] [place] Variant lymphocytes/100 WBC Manual cnt (Bld)Ordered By: Roxane Bills on 12-26-2024 Variant lymphocytes/100 WBC (Bld)2 %0-12[facility] Appearance of UrineOrdered By: Roxane Bills on 74-46-0139Llcssovvok (U)ClearNormal ClearMadison HealthComment on above:Order Comment: Name Collection Type:: Clean-Voided MidstreamPerformed By: #### UA ####[address] [address] USABilirubin Test strip Ql (U)Ordered By: Roxane Bills on 66-15-9060Filsjftne Ql (U)NegativeNegative Madison HealthBlood Cultureon 10-62-2116Vsrqgyku identified Cx Nom (Bld)NO GROWTH 5 DAYS PERFORMED BY: [place] [address] PATHOLOGIST PUPPET MAKER ELAINE CHAUDHARY M.D.[facility] Physician GroupComment on above: Performed By: #### CUBLD ####[address] [address] USABacteria identified Cx Nom (Bld)NO GROWTH 5 DAYS PERFORMED BY: [facility] [address] [place] [address] PATHOLOGIST PUPPET MAKER ELAINE CHAUDHARY M.D.[facility] Physician [facility] Medical CenterComment on above: Performed By: #### CUBLD ####[address] [address] USAColor of Urine by AutoOrdered By: Roxane Bills on 43-93-8249Sjhra (U)Light-yellowNormalYKettering Memorial Hospital Comment on above:Order Comment: Name Collection Type:: Clean-Voided Midstream Performed By: #### UA ####[address] [address] USAGlucose [Mass/volume] in Urine by Test stripOrdered By: Roxane Bills on 84-12-5215Cqzsryo Test strip (U) [Mass/Vol]>=1000 mg/dLHigh NormalMadison HealthHemoglobin Test strip Ql (U)Ordered By: Roxane Bills on 03-43-3822Gtuwxfishq Ql (U)NegativeNegativeMadison HealthKetones [Presence] in Urine by Test stripOrdered By: Roxane Bills on 29-83-9835Uctcjhc Ql (U)NegativeNormalNegAvita Health System Galion Hospital Comment on above:Order Comment: Name Collection Type:: Clean-Voided Midstream Performed By: #### UA ####[address] [place] [address] USALeukocyte esterase [Presence] in Urine by Test strip Ordered By: Roxane Bills on 11-52-2160Hgqyknwyb esterase Test strip Ql (U)Negative NormalNegAvita Health System Galion HospitalComment on above:Order Comment: Name Collection Type:: Clean-Voided MidstreamPerformed By: #### UA ####[address] [address] USANitrite Test strip Ql (U)Ordered By: Roxane Bills on 82-26-8377Pszxuaz Ql (U)NegativeNegAvita Health System Galion HospitalNo Panel InformationOrdered By: Roxane Bills on 12-21-2024 NO GROWTH 5 [facility] ShawNO GROWTH 5 [facility]NO GROWTH 5 [facility]NO GROWTH 5 [facility] ShawProtein Test strip (U) [Mass/Vol] Ordered By: Roxane Bills on 06-76-1971Hloghbj (U) [Mass/Vol]NegativeNegative TriHealthpecific gravity Test strip (U) [Rel density] Ordered By: Roxane Bills on 70-48-2792Grhzjlni gravity (U) [Rel density]1.010 1.001-1.030Madison HealthUrinalysison 12-21-2024 Bilirubin,UrineNegativeNormalNegativeThe [facility] Physician GroupComment on above:Order Comment: Name Collection Type:: Clean-Voided MidstreamPerformed By: #### UA ####[address] [address] USAGlucose Ql (U)>=NormalNormalThe [facility] Health Physician GroupComment on above: Order Comment: Name Collection Type:: Clean-Voided MidstreamPerformed By: #### UA ####[address] [address] [place] Nitrite,UrineNegativeNormalNegativeKeralty Hospital Miami Physician GroupComment on above:Order Comment: Name Collection Type:: Clean-Voided MidstreamPerformed By: #### UA ####[address] [address] USAOccult Blood,UrineNegativeNormalNegativeThe [facility] Health Physician GroupComment on above:Order Comment: Name Collection Type:: Clean-Voided MidstreamResult Comment: PERFORMED BY:[address] [place], [place] [id number] MEDICAL LEESA CHAUDHARY M.D.Performed By: #### UA ####[address] USAProtein,UrineNegativeNormalNegativeThe [facility] Health Physician GroupComment on above:Order Comment: Name Collection Type:: Clean-Voided MidstreamPerformed By: #### UA ####[address] USASpecificy [place],Urine1.706Rmjzxd1.001-1.030The [facility] Physician GroupComment on above:Order Comment: Name Collection Type:: Clean-Voided MidstreamPerformed By: #### UA ####[address] USAUrobilinogen,UrineNormalNormalNormalThe [facility] Health Physician GroupComment on above:Order Comment: Name Collection Type:: Clean- Voided MidstreamPerformed By: #### UA ####[address] USAUrinalysis, manual onlyon 86-08-6211Nthzbdyotg (U)ClearClearNOMS HealthcareBILIRUBIN,URINENegativeNegativeNOMS HealthcareColor (U)Light-YellowYellowNOMS HealthcareGlucose Ql (U)mg/dLNormal mg/dLNOMS HealthcareKetones Ql (U)NegativeNegativeNOMS HealthcareLeukocyte esterase Test strip Ql (U)NegativeNegativeNOMS HealthcareNITRITE,URINENegativeNegativeNOMS HealthcareOCCULT BLOOD,URINENegativeNegativeNOMS HealthcarepH (U)5.5 [pH]5.0 - 9.0NOMS HealthcarePROTEIN,URINENegativeNegative mg/dLNOPA HealthcareSPECIFICY GRAVITY,URINE1.011.001 - 1.030NOMS HealthcareUROBILINOGEN,URINENormalNormal mg/dLNOPA HealthcareName Collection Type:: Clean-Voided MidstreamWARREN GENERAL HOSPITAL HealthcareUrobilinogen Test strip (U) [Mass/Vol]Ordered By: Roxane Bills on 15-76-7041Ibheaqmwodvo (U) [Mass/Vol]Normal mg/dLNormWyandot Memorial HospitalXR chest 2V*on 24-55-1050JR chest 2V*NormalThe [facility] Health Physician GrouppH of Urine by Test stripOrdered By: Roxane Bills on 94-62-1917jW (U)5.5 [pH] Normal5.0-9.0Madison HealthComment on above:Order Comment: Name Collection Type:: Clean-Voided MidstreamPerformed By: #### UA ####[address] [facility]ANCHOAlanine aminotransferase [Enzymatic activity/volume] in Serum or PlasmaOrdered By: Roxane Bills on 70-46-6596GEX [Catalytic activity/Vol]86 U/LHigh7-52Madison HealthComment on above:Performed By: #### CBC, CMP ####[place] USAAlbumin [Mass/volume] in Serum or Plasma by Bromocresol green (BCG) dye binding methoOrdered By: Roxane Bills on 93-25-3442Ixxnwwx BCG dye [Mass/Vol]3.9 g/dL3.5-5.7FClermont County HospitalAlkaline phosphatase [Enzymatic activity/volume] in Serum or PlasmaOrdered By: Roxaen Bills on 11-13-4148HLP [Catalytic activity/Vol]145 U/LHigh 34-104Madison HealthComment on above:Performed By: #### CBC, CMP ####[place] [address] [facility] Aspartate aminotransferase [Enzymatic activity/volume] in Serum or PlasmaOrdered By: Roxane Bills on 89-88-9412KFS [Catalytic activity/Vol]35 U/RGdkfkj22-39 Madison HealthComment on above:Performed By: #### CBC, CMP ####[address] [address] [place] Basophils [#/volume] in Blood by Automated countOrdered By: Roxane Bills on 56-36-7085Ednfxptyb (Bld) [#/Vol]0.1 10*3/uLNormal0.0-0.2FClermont County HospitalComment on above:Result Comment: PERFORMED BY:[address] [place], [place] [phone] MEDICAL DIRECTORELAINE CHAUDHARY M.D.Performed By: #### CBC, CMP ####[address] [address] USABasophils/100 leukocytes in Blood by Automated countOrdered By: Roxane Bills on 59-48-2045Fgdgxajne/100 WBC (Bld)1.4 %Normal.Madison HealthComment on above:Performed By: #### CBC, CMP ####[address] [address] USABilirubin.total [Mass/volume] in Serum or PlasmaOrdered By: Roxane Bills on 43-31-5539Poajyywpg [Mass/Vol]0.4 mg/dLNormal0.3-1.0Madison HealthComment on above:Performed By: #### CBC, CMP ####[address] [address] USACBC W Auto Differential panel (Bld)on 50-42-0307Mtucsibhn (Bld) [#/Vol]0.1 10*3/uL0.0 - 0.2 10*3/uLNOMS HealthcareBasophils/100 WBC Manual cnt (Syn fld)1.4 %.NOMS HealthcareEosinophils (Bld) [#/Vol]0.3 10*3/uL0.0 - 0.45 10*3/uLNOMS Healthcare Eosinophils/100 WBC Manual cnt (Syn fld)5.3 %.[facility] HealthcareErythrocyte distribution width (RBC) [Ratio]15.3 %11.9 - 15.3 %NOM HealthcareHematocrit (Bld) [Volume fraction]42 %34.0 - 46.4 %[facility] HealthcareHemoglobin (Bld) [Mass/Vol]13.8 g/dL11.8 - 15.4 g/dLAMERICAN FORK HOSP[facility] HealthcareInterpretation and review of laboratory resultsAbnormalAMER[facility]K [facility] HealthcareLymphocytes (Bld) [#/Vol]0.6 10*3/uLLow 1.00 - 4.8 10*3/uLNOMS HealthcareLymphocytes/100 WBC Manual cnt (Syn fld)9.7 %. [facility] CenterMCH (RBC) [Entitic mass]29.1 pg24.7 - 34.3 pgNevada Regional Medical CenterHC (RBC) [Mass/Vol]32.8 g/dL32.0 - 35.0 g/dLHedrick Medical CenterMCV (RBC) [Entitic vol] 88.8 fL80 - 100 fLAMERICAN FORK HOSPITAL HealthcareMonocytes (Bld) [#/Vol]0.3 10*3/uL0.0 - 0.8 10*3/uLNOMS HealthcareMonocytes+Macrophages/100 WBC Manual cnt (Syn fld)5.2 %. [facility] HealthcareNeutrophils (Bld) [#/Vol]5.2 10*3/uL1.8 - 7.7 10*3/uLNOMS HealthcareNeutrophils/100 WBC Manual cnt (Syn fld)78.4 %.[facility] HealthcareNRBC0.3 /100{WBC}0 - 0.5 /100{WBC}[facility] HealthcarePlatelet mean volume (Bld) [Entitic vol]9 fL6.3 - 10.7 fLNOPA HealthcarePlatelets (Bld) [#/Vol]130 10*3/qHYnj032 - 450 10*3/uLNOMS HealthcareRBC LM.HPF (Urine sed) [#/Area]4.73 10*6/uL3.60 - 5.00 10*6/uLNOMS HealthcareWBC (Bld) [#/Vol]6.6 10*3/uL3.8 - 11.6 10*3/uLNOMS HealthcareWBC LM.HPF (Urine sed) [#/Area]6.6 [CFU]/mL3.8 - 11.6 [CFU]/mLNOMS HealthcareNOMS HealthcareCalcium [Mass/volume] in Serum or PlasmaOrdered By: Roxane Bills on 05-31-7017Tvndtwh [Mass/Vol]8.8 mg/dLNormal8.6-10.3FClermont County HospitalComment on above:Performed By: #### CBC, CMP ####[place] [address] USACarbon dioxide, total [Moles/volume] in Serum or PlasmaOrdered By: Roxane Bills on 80-52-4994YA2 [Moles/Vol]37.0 mmol/LHigh21.0-31.0Madison HealthComment on above:Performed By: #### CBC, CMP ####[place] [id number] USAChloride [Moles/volume] in Serum or PlasmaOrdered By: Roxane Bills on 32-05-6241Haeydlqz [Moles/Vol]94 mmol/JCgt72-362XlcjyyindMadison HealthComment on above:Performed By: #### CBC, CMP ####[place] [id number] [facility] Complete Blood Count Auto Diffon 13-38-0308Hzsp Corpuscular HGB Conc32.8 g/dL Psyoqb69.0-35.0The [facility] Health Physician GroupComment on above:Performed By: #### CBC, CMP ####[address] [address] USANRBC%0.3 /100{WBC}Normal0-0.5The [facility] Health Physician GroupComment on above: Performed By: #### CBC, CMP ####[place] [address] USAWhite Blood Count6.6 [CFU]/mLNormal3.8-11.6The [facility] Health Physician GroupComment on above:Performed By: #### CBC, CMP ####[facility] [place] [address] [facility] Comprehensive Metabolic Panelon 00-87-9805Achdafc [Mass/Vol]3.9 g/dLNormal 3.5-5.7The [facility] Health Physician GroupComment on above:Performed By: #### CBC, CMP ####[place] [address] [place] [address] [facility] Creatinine Clr Calc Fkjdbarl11.05NormCleveland Clinic Martin South Hospital Physician GroupComment on above:Result Comment: PERFORMED BY:[address] [place]JoseJaneFR[place], [place] [phone] MEDICAL DIRECTORELAINE CHAUDHARY M.D.Performed By: #### CBC, CMP ####[place] [address] [place] [address] USAGFR/1.73 sq M.predicted MDRD (S/P/Bld) [Vol rate/Area]36.440 mL/min/{1.73_m2}NormalThe [facility] Physician [facility] Medical CenterComment on above:Performed By: #### CBC, CMP ####[address] [address] [facility]CHOComprehensive metabolic panelon 95-17-5628Tagmpmd [Mass/Vol]3.9 g/dL3.5 - 5.7 g/dLNOMS HealthcareAlbumin/Globulin [Mass [...] mmol/LNOMS HealthcareCreatinine (U) [Mass/Vol]1.56 mg/dLHigh0.60 - 1.20 mg/dLNOPA HealthcareCREATININE CLR CALC EUYFBLMG41.05N[facility] Healthcare GFR/1.73 sq M.predicted MDRD (S/P/Bld) [Vol rate/Area]36.44 mL/min/{1.73_m2}NOMS HealthcareGlobulin (S) [Mass/Vol]3.3 g/dLNOPA HealthcareGlucose [Mass/Vol]168 mg/zLBavx38 - 100 mg/dLNOPA HealthcareComment on above:Random Glucose Reference Range is dependent on time and content of last meal. Glucose of more than 200 mg/dL in a nonstressed, ambulatory subject supports the diagnosis of Diabetes Mellitus. ADA recommended reference range Interpretation and review of laboratory resultsAbnormalNOMS HealthcarePotassium [Moles/Vol]4.3 mmol/L3.5 - 5.1 mmol/LNOMS HealthcareProtein [Mass/Vol]7.2 g/dL 6.4 - 8.9 g/dLNOPA HealthcareSodium [Moles/Vol]139 mmol/L136 - 145 mmol/LNOMS HealthcareUrea nitrogen [Mass/Vol]20 mg/dL7 - 25 mg/dLPhelps Health HealthcareCreatinine [Mass/volume] in Serum or PlasmaOrdered By: Roxane Bills on 13-74-4856Ujbldwcyry [Mass/Vol]1.56 mg/dLHigh0.60-1.20Madison HealthComment on above:Performed By: #### CBC, CMP ####[place] [address] [place] [phone] USAEosinophils [#/volume] in Blood by Automated countOrdered By: Roxane Bills on 42-17-5338Upidueenvcr (Bld) [#/Vol]0.3 10*3/uLNormal0.0-0.45Madison HealthComment on above:Performed By: #### CBC, CMP ####[place] [address] [place] [address] USAEosinophils/100 leukocytes in Blood by Automated countOrdered By: Roxane Bills on 45-06-3556Dmfnppglolw/100 WBC (Bld)5.3 %Normal. Madison HealthComment on above:Performed By: #### CBC, CMP ####[place] [address] Erythrocyte distribution width [Ratio] by Automated countOrdered By: Roxane Bills on 57-05-8469Pnpwmczusau distribution width (RBC) [Ratio]15.3 %Otbsce41.9-15.3 [facility] HealthComhurley medical center on above:Performed By: #### CBC, CMP ####[address] Erythrocytes [#/volume] in Blood by Automated countOrdered By: Roxane Bills on 48-49-0320BMQ (Bld) [#/Vol]4.73 10*6/uLNormal3.60-5.00Mad[facility] HealthComhurley medical center on above:Performed By: #### CBC, CMP ####[address]Glomerular filtration rate [Volume Rate/Area] in Serum, Plasma or Blood by CreatinineOrdered By: Roxane Bills on 23-75-4424Hbwmmipsbe filtration rate [Volume Rate/Area] in Serum, Plasma or Blood by Bzrixxrzhy33.440 mL/MinMadison HealthGlucose [Mass/volume] in Serum or PlasmaOrdered By: Roxane Bills on 72-34-3193Hiwocte [Mass/Vol]168 mg/qGPhhj95-114WvsosoudkMadison HealthComment on above: Result Comment: Random Glucose Reference Range is dependent on time and content of last meal. Glucose of more than 200 mg/dL in a nonstressed, ambulatory subject supports the diagnosis of Diabetes Mellitus. ADA recommended reference rangePerformed By: #### CBC, CMP ####[place] [address] [place] [phone] USAHematocrit [Volume Fraction] of Blood by Automated countOrdered By: Roxane Bills on 26-79-3525Ruvabplfqn (Bld) [Volume fraction]42.0 % Ckycdq73.0-46.4FClermont County HospitalComment on above:Performed By: #### CBC, CMP ####[address] [address] USAHemoglobin [Mass/volume] in BloodOrdered By: Roxane Bills on 12-19-2024 Hemoglobin (Bld) [Mass/Vol]13.8 g/mWNfjedg57.8-15.4FClermont County HospitalComment on above:Performed By: #### CBC, CMP ####[address] [address] USALeukocytes [#/volume] corrected for nucleated erythrocytes in Blood by Automated counOrdered By: Roxane Bills on 65-15-1173BHY corrected for nucl RBC Auto (Bld) [#/Vol]6.6 10*3/uL 3.8-11.6FClermont County HospitalLeukocytes [#/volume] in Blood by Automated countOrdered By: Roxane Bills on 60-11-2363AYR (Bld) [#/Vol]6.6 10*3/uL Normal3.8-11.6FClermont County HospitalComment on above:Performed By: #### CBC, CMP ####[address] [address] USALymphocytes [#/volume] in Blood by Automated countOrdered By: Roxane Bills on 07-82-0882Lovklejgqnl (Bld) [#/Vol]0.6 10*3/uLLow1.00-4.8Madison HealthComment on above:Performed By: #### CBC, CMP ####[address] [address] USALymphocytes/100 leukocytes in Blood by Automated countOrdered By: Roxane Bills on 12-19-2024 Lymphocytes/100 WBC (Bld)9.7 %Normal.Madison HealthComment on above:Performed By: #### CBC, CMP ####[address] [address] USAMCH [Entitic mass] by Automated countOrdered By: Roxane Bills on 36-84-3197TBI (RBC) [Entitic mass]29.1 itJebtbh27.7-34.3FClermont County HospitalComment on above:Performed By: #### CBC, CMP ####[place] [address] [facility] Auto (RBC) [Mass/Vol]Ordered By: Roxane Bills on 96-12-1552ZATL (RBC) [Mass/Vol] 32.8 g/dL32.0-35.0Middletown HospitalV [Entitic volume] by Automated countOrdered By: Roxane Bills on 60-18-5403PRQ (RBC) [Entitic vol]88.8 fL Zqhfeh13-226MwkvezkmcMadison HealthComment on above:Performed By: #### CBC, CMP ####[place] [address] USAMonocytes [#/volume] in Blood by Automated countOrdered By: Roxane Bills on 80-06-0229Qyqmhjzcz (Bld) [#/Vol]0.3 10*3/uLNormal0.0-0.8Madison HealthComment on above:Performed By: #### CBC, CMP ####[place] [address] USAMonocytes/100 leukocytes in Blood by Automated countOrdered By: Roxane Bills on 12-19-2024 Monocytes/100 WBC (Bld)5.2 %Normal.Madison HealthComment on above:Performed By: #### CBC, CMP ####[place] [address] USANeutrophils [#/volume] in Blood by Automated count Ordered By: Roxane Bills on 46-53-7108Nltznqyscpq (Bld) [#/Vol]5.2 10*3/uLNormal 1.8-7.7FClermont County HospitalComment on above:Performed By: #### CBC, CMP ####[place] [address] [place] Neutrophils/100 leukocytes in Blood by Automated countOrdered By: Roxane Bills on 79-52-1585Zhlngxwvder/100 WBC (Bld)78.4 %Normal.Madison HealthComment on above:Performed By: #### CBC, CMP ####[address] [address] USANo Panel InformationOrdered By: Roxane Bills on 73-09-569327.05Madison HealthNucleated erythrocytes [Presence] in Blood by Automated countOrdered By: Roxane Bills on 50-27-3762Kyegfwoog RBC Auto Ql (Bld)0.3 /100{WBC}0-0.5FClermont County HospitalPlatelet mean volume [Entitic volume] in Blood by Automated count Ordered By: Roxane Bills on 97-39-0277Halogfmw mean volume (Bld) [Entitic vol]9.0 fLNormal6.3-10.7FClermont County HospitalComment on above:Performed By: #### CBC, CMP ####[place] [address] USAPlatelets [#/volume] in Blood by Automated countOrdered By: Roxane Bills on 25-21-1995Vabkhwahq (Bld) [#/Vol]130 10*3/nZMhg418-079SxsbbincbMadison HealthComment on above:Performed By: #### CBC, CMP ####[place] [address] USAPotassium [Moles/volume] in Serum or PlasmaOrdered By: Roxane Bills on 18-89-1408Stbopnmyb [Moles/Vol]4.3 mmol/LNormal3.5-5.1FClermont County HospitalComment on above:Performed By: #### CBC, CMP ####[address] [address] USAProtein [Mass/volume] in Serum or PlasmaOrdered By: Roxane Bills on 08-83-3005Uedcjqr [Mass/Vol]7.2 g/dLNormal6.4-8.9Madison HealthComment on above:Performed By: #### CBC, CMP ####[address] [place] [address] USASerum globulin measurement by calculation (mass/volume)Ordered By: Roxane Bills on 12-19-2024 Globulin (S) [Mass/Vol]3.3 g/dLNormalMadison HealthComment on above:Performed By: #### CBC, CMP ####[place] [address] USASerum or plasma albumin/globulin mass ratioOrdered By: Roxane Bills on 22-77-4538Xqppuzr/Globulin [Mass ratio]1.2 {ratio}Normal Madison HealthComment on above:Performed By: #### CBC, CMP ####[place] [address] USASerum or plasma anion gap determinationOrdered By: Roxane Bills on 15-18-5019Gyfah gap [Moles/Vol]12.3 mmol/LNormal6.0-15.0Madison HealthComment on above:Performed By: #### CBC, CMP ####[place] [address] USASodium [Moles/volume] in Serum or PlasmaOrdered By: Roxane Bills on 05-49-1009Infqnk [Moles/Vol]139 mmol/GInrlrh954-606QdtdsoervMadison HealthComment on above:Performed By: #### CBC, CMP ####[place] [address] USAUrea nitrogen [Mass/volume] in Serum or PlasmaOrdered By: Roxane Bills on 42-03-2745Sska nitrogen [Mass/Vol]20 mg/dLNormal7-25Madison HealthComment on above:Performed By: #### CBC, CMP ####[place] [address] USAAnisocytosis [Presence] in Blood by Light microscopyOrdered By: Roxane Bills on 68-41-9655Uetodnhxsuwl Ql (Bld)SlightNormal Madison HealthComment on above:Performed By: #### SCAN CBC, CMP ####[address] [address] [facility] Comprehensive Metabolic Panelon 58-28-0459Eazxfrm [Mass/Vol]3.7 g/dLNormal 3.5-5.7The [facility] Health Physician GroupComment on above:Performed By: #### SCAN CBC, CMP ####[address] [address] USAAlbumin/Globulin [Mass ratio]1.3 {ratio}NormalThe [facility] Comment on above:Performed By: #### SCAN CBC, CMP ####[address] [address] USAALP [Catalytic activity/Vol]144 U/L Zhiq15-531Frh [facility] Physician GroupComment on above:Performed By: #### SCAN CBC, CMP ####[address] [address] USAALT [Catalytic activity/Vol]102 U/LHigh7-52The [facility]ician [facility] Comment on above:Performed By: #### SCAN CBC, CMP ####[address] [address] USAAnion gap [Moles/Vol]10.0 mmol/LNormal 6.0-15.0The [facility] Health Physician GroupComment on above:Performed By: #### SCAN CBC, CMP ####[address] [address] USAAST [Catalytic activity/Vol]61 U/JExlk31-78Xhr [facility] Comment on above:Performed By: #### SCAN CBC, CMP ####[address] [address] USABilirubin [Mass/Vol]0.3 mg/dLNormal 0.3-1.0The [facility] Health Physician GroupComment on above:Performed By: #### SCAN CBC, CMP ####[address] [address] USACalcium [Mass/Vol]8.6 mg/dLNormal8.6-10.3The [facility] Health Physician GroupComment on above:Performed By: #### SCAN CBC, CMP ####[place] [place] [address] USAChloride [Moles/Vol]100 mmol/LNormal 98-107The [facility] Health Physician GroupComment on above:Performed By: #### SCAN CBC, CMP ####[address] [address] [place] CO2 [Moles/Vol]34.9 mmol/LHigh21.0-31.0The [facility] Health Physician GroupComment on above:Performed By: #### SCAN CBC, CMP ####[address] [address] USACreatinine [Mass/Vol]1.28 mg/dLHigh0.60-1.20 The [facility] Health Physician GroupComment on above:Performed By: #### SCAN CBC, CMP ####[address] [address] [place] Creatinine Clr Calc Qvpdacma86.94NoCentral Harnett Hospital Physician GroupComment on above:Result Comment: PERFORMED BY:[address] [place]YSIADianeBR[place]ENV[place], [place] [phone] MEDICAL LEESA CHAUDHARY M.D.Performed By: #### SCAN CBC, CMP ####[address] [address] USAGFR/1.73 sq M.predicted MDRD (S/P/Bld) [Vol rate/Area]46.203 mL/min/{1.73_m2}NormalThe [facility] Health Physician GroupComment on above:Performed By: #### SCAN CBC, CMP ####[address] [address] USAGlobulin (S) [Mass/Vol]2.8 g/dLAdventHealth Heart of Florida Physician [facility] Medical CenterComment on above:Performed By: #### SCAN CBC, CMP ####[address] [address] USAGlucose [Mass/Vol]182 mg/aTNvwj12-543Ddc [facility] Physician GroupComment on above: Result Comment: Random Glucose Reference Range is dependent on time and content of last meal. Glucose of more than 200 mg/dL in a nonstressed, ambulatory subject supports the diagnosis of Diabetes Mellitus. ADA recommended reference rangePerformed By: #### SCAN CBC, CMP ####[facility] [place] [address] USAPotassium [Moles/Vol]4.9 mmol/LNormal3.5-5.1 The [facility] Health Physician GroupComment on above:Performed By: #### SCAN CBC, CMP ####[place] [place] [address] USAProtein [Mass/Vol]6.5 g/dLNormal6.4-8.9The [facility] Health Physician GroupComment on above: Performed By: #### SCAN CBC, CMP ####[place] [address] [place] [address] USASodium [Moles/Vol]140 mmol/LSukrsh011-435Hmz [facility] Physician GroupComment on above:Performed By: #### SCAN CBC, CMP ####[place] [address] [place] [address] USAUrea nitrogen [Mass/Vol]22 mg/dLNormal7-25The [facility] Health Physician GroupComment on above:Performed By: #### SCAN CBC, CMP ####[place] [address] [place] [phone] USAComprehensive metabolic panelon 12-13-2024 Albumin [Mass/Vol]3.7 g/dL3.5 [...] mmol/LNOMS HealthcareCreatinine (U) [Mass/Vol]1.28 mg/dLHigh0.60 - 1.20 mg/dLNOPA HealthcareCREATININE CLR CALC WSIDQJHQ27.94NOMS HealthcareGFR/1.73 sq M.predicted MDRD (S/P/Bld) [Vol rate/Area]46.203 mL/min/{1.73_m2}NOMS HealthcareGlobulin (S) [Mass/Vol]2.8 g/dL NOMS HealthcareGlucose [Mass/Vol]182 mg/vZJybt44 - 100 mg/dLNOSt. Luke's Hospital Comment on above:Random Glucose Reference Range is dependent on time and content of last meal. Glucose of more than 200 mg/dL in a nonstressed, ambulatory subject supports the diagnosis of Diabetes Mellitus. ADA recommended reference range Interpretation and review of laboratory resultsAbnormalNOMS HealthcarePotassium [Moles/Vol]4.9 mmol/L3.5 - 5.1 mmol/LNOMS HealthcareProtein [Mass/Vol]6.5 g/dL 6.4 - 8.9 g/dLNOPA HealthcareSodium [Moles/Vol]140 mmol/L136 - 145 mmol/LNOMS HealthcareUrea nitrogen [Mass/Vol]22 mg/dL7 - 25 mg/dLNOSt. Luke's HospitalNOMS HealthcareErythrocyte morphology finding [Identifier] in BloodOrdered By: Roxane Bills on 10-29-4851IVK morphology finding Nom (Bld)N/[facility] Healthcare SystemMicrocytes LM Ql (Bld)Ordered By: Roxane Bills on 45-76-5442Dfepkepuus Ql (Bld)[facility] Medical CenterOvalocytes [Presence] in Blood by Light microscopyOrdered By: Roxane Bills on 63-94-5719Cdymtyrwpu LM Ql (Bld)[facility] HospitalPlatelet adequacy [Presence] in Blood by Light microscopyOrdered By: Roxane Bills on 91-18-8018Gosznihac LM Ql (Bld)NormalNormal Madison HealthPlatelet morphology finding [Identifier] in BloodOrdered By: Roxane Bills on 13-10-3691Otazhggo morphology finding Nom (Bld) NormalNormalFirelands Regional Medical CenterPolychromasia [Presence] in Blood by Light microscopyOrdered By: Roxane iBlls on 88-38-0623Knasklnauenjj LM Ql (Bld) SlightTriHealthcan and CBCon 61-27-8445Qtqheymno (Bld) [#/Vol]0.2 10*3/uLNormal0.0-0.2The [facility] Health Physician GroupComment on above: Performed By: #### SCAN CBC, CMP ####[address] [address] USABasophils/100 WBC (Bld)3.7 %Normal.The [facility] Health Physician GroupComment on above:Performed By: #### SCAN CBC, CMP ####[address] [address] USAEosinophils (Bld) [#/Vol]0.2 10*3/uLNormal0.0-0.45The [facility] Health Physician GroupComment on above: Performed By: #### SCAN CBC, CMP ####[address] [address] USAEosinophils/100 WBC (Bld)3.2 %Normal.The [facility] Health Physician GroupComment on above:Performed By: #### SCAN CBC, CMP ####[address] [address] USAErythrocyte distribution width (RBC) [Ratio]15.6 %High11.9-15.3The [facility] Comment on above:Performed By: #### SCAN CBC, CMP ####[address] [address] USAHematocrit (Bld) [Volume fraction] 42.1 %Zqsvpg52.0-46.4The [facility] Health Physician GroupComment on above:Performed By: #### SCAN CBC, CMP ####[address] [address] USAHemoglobin (Bld) [Mass/Vol]13.6 g/aVSmeiey30.8-15.4The [facility] Physician GroupComment on above:Performed By: #### SCAN CBC, CMP ####[address] [address] USALymphocytes (Bld) [#/Vol]1.4 10*3/uLNormal1.00-4.8The [facility] Physician GroupComment on above: Performed By: #### SCAN CBC, CMP ####[address] [address] USALymphocytes/100 WBC (Bld)24.1 %Normal.The [facility] Health Physician GroupComment on above:Performed By: #### SCAN CBC, CMP ####[address] [address] [facility] (RBC) [Entitic mass]28.9 qgZfrnqp79.7-34.3The [facility] Health Physician GroupComment on above: Performed By: #### SCAN CBC, CMP ####[place] [address] USAV (RBC) [Entitic vol]89.8 mJVefknj65-701Ljo [facility] Physician GroupComment on above:Performed By: #### SCAN CBC, CMP ####[place] [address] USAMean Corpuscular HGB Conc32.2 g/jQYjvwet42.0-35.0The [facility] Health Physician GroupComment on above:Performed By: #### SCAN CBC, CMP ####[place] [address] USAMicrocytosisSlightNormalThe [facility] Health Physician GroupComment on above:Performed By: #### SCAN CBC, CMP ####[address] [address] USAMonocytes (Bld) [#/Vol]1.6 10*3/uLHigh0.0-0.8The [facility] Health Physician GroupComment on above: Performed By: #### SCAN CBC, CMP ####[place] [address] USAMonocytes/100 WBC (Bld)26.6 %Normal.The [facility] Health Physician GroupComment on above:Performed By: #### SCAN CBC, CMP ####[place] [address] USANeutrophils (Bld) [#/Vol]2.5 10*3/uLNormal1.8-7.7The [facility] Health Physician GroupComment on above: Performed By: #### SCAN CBC, CMP ####[place] [address] USANeutrophils/100 WBC (Bld)42.4 %Normal.The [facility] Health Physician GroupComment on above:Performed By: #### SCAN CBC, CMP ####[place] [address] USANRBC%0.1 /100{WBC} Normal0-0.5The [facility] Health Physician GroupComment on above:Performed By: #### SCAN CBC, CMP ####[place] [address] USAOvalocytesSlightNoCentral Harnett Hospital Physician GroupComment on above:Performed By: #### SCAN CBC, CMP ####[place] [address] USAPlatelet EstimateNormalNormalAdventHealth Heart of Florida Physician GroupComment on above:Performed By: #### SCAN CBC, CMP ####[place] [address] USAPlatelet mean volume (Bld) [Entitic vol]7.3 fLNormal6.3-10.7The [facility] Physician GroupComment on above:Performed By: #### SCAN CBC, CMP ####[place] [address] USAPlatelet MorphologyNormalNormalNoCentral Harnett Hospital Physician GroupComment on above:Result Comment: PERFORMED BY:[address] [place], [place] [phone] MEDICAL LEESA CHAUDHARY M.D.Performed By: #### SCAN CBC, CMP ####[address] [place] [address] [place] Platelets (Bld) [#/Vol]371 10*3/pYYjyehj585-779Pnj [facility] Comment on above:Performed By: #### SCAN CBC, CMP ####[place] [place] [address] USAPolychromasiaSlightNormalThe [facility] Health Physician GroupComment on above:Performed By: #### SCAN CBC, CMP ####[address] [address] USARBC (Bld) [#/Vol]4.69 10*6/uLNormal3.60-5.00The [facility] Physician GroupComment on above:Performed By: #### SCAN CBC, CMP ####[address] [address] USAWBC (Bld) [#/Vol]5.9 10*3/uLNormal3.8-11.6The [facility] Physician GroupComment on above:Performed By: #### SCAN CBC, CMP ####[address] [address] USAWhite Blood Count5.9 [CFU]/mLNormal3.8-11.6The [facility] Physician GroupComment on above:Performed By: #### SCAN CBC, CMP ####[address] [address] USAPROTEIN ELECTRO, RANDOM URINEon 12-08-2024 ALBUMIN, URINE22.9 %.[facility]OMS BxtujilouoWHBJY-1-IRELFGQH, URINE5.1 %.[facility] AFPDE-4-YVZJZJKB, URINE26.3 %.[facility] HealthcareBETA GLOBULIN, URINE25.1 %.[facility] HealthcareGAMMA GLOBULIN, URINE20.6 %.[facility] HealthcareM-SPIKE %8.1 %Not Observed [facility] HealthcarePLEASE NOTE:Comment.NOMS HealthcareComment on above:Protein electrophoresis scan will follow via computer, mail, or butt maker delivery. Performed at: [address] [id number] Pan Washer Hand: Jhoan Rich PhD, Phone: [phone] Protein (U) [Mass/Vol]6.3 mg/dLNot Estab.[facility] hour urine albumin/total protein ratio by electrophoresisOrdered By: Roxane Bills on 44-33-1970Hzbzjvx Elph (24H U) [Mass fraction]22.9 %.[facility]24 hour urine gamma globulin/total protein ratio by electrophoresisOrdered By: Roxane Bills on 45-33-0734Cmzcb globulin Elph (24H U) [Mass fraction]20.6 %. [facility]24 hour urine protein monoclonal/total protein by electrophoresisOrdered By: Roxane Bills on 73-52-8471Mneosvm.monoclonal Elph (24H U) [Mass fraction]8.1 %HighNot ObservedMadison Health Free K+L LT Chains, Qn, Son 30-03-8671Lpwe [place] Light Chains, S128.9 mg/LNormal 3.3-19.4The [facility] Physician GroupComment on above:Performed By: #### KAPPA, SPE ####[facility] ,Free Lambda Light Chains, S37.9 mg/LNormal5.7-26.3 The [facility] Health Physician GroupComment on above:Performed By: #### KAPPA, SPE ####[facility] ,[place]/Lambda Ratio, S3.27Byfavt2.26-1.65The [facility] Health Physician GroupComment on above:Result Comment: Performed at: [facility] [address] [id number] Pan Washer Hand: Jhoan Rich PhD, Phone: [phone] BY:[place] [address] [address] [place], [place] [phone] MEDICAL DIRECTORELAINE CHAUDHARY M.D.Performed By: #### KAPPA, SPE ####[facility] ,Magnesiumon 39-53-6543Ubdvcnnuvyhtxi and review of laboratory resultsAbnormalPhelps HealthS HealthcareMagnesium [Mass/volume] in Serum or Plasmaon 01-53-9703Tdqyvnibw [Mass/Vol]1.3 mg/dLLow1.9-2.7NOMS HealthcareComment on above:Result Comment: PERFORMED BY:[facility] [place], [place] [phone] MEDICAL DIRECTORELAINE CHAUDHARY M.D.Performed By: #### MG ####[facility] [address] [place] [address] USANo Panel InformationOrdered By: Roxane Bills on [id number].[facility]0.4 g/dLHighNot ObservedMadison Health Comment.[facility]ison HealthProtein Electro, Random Urineon 08-04-9142Ecexvry, Urine22.9 %Normal.[facility] Physician GroupComment on above:Performed By: #### UPE RAND ####[facility] ,Wceud-1-Mfsezqyx, Urine5.1 %Normal.[facility] Physician GroupComment on above:Performed By: #### UPE RAND ####[facility] ,Mlxez-1-Cdatdwyz, Urine26.3 %Normal.[facility] Physician GroupComment on above:Performed By: #### UPE RAND ####[facility] ,Beta Globulin, Urine25.1 %Normal.[facility] Physician GroupComment on above:Performed By: #### UPE RAND ####[facility] ,Gamma Globulin, Urine20.6 %Normal.[facility] Group Comment on above:Performed By: #### UPE RAND ####[facility] ,M-Damien % 8.1 %NormalNot ObservedThe Alleghany Health Physician GroupComment on above:Performed By: #### UPE RAND ####[facility] ,Please Note:CommentNormal.The [facility] Health Physician GroupComment on above:Result Comment: Protein electrophoresis scan will follow via computer, mail, or butt maker delivery. Pe rformed at: [facility] [address] [id number] Pan Washer Hand: Jhoan Rich PhD, Phone: [phone] BY:[facility], [place] [phone] MEDICAL DIRECTORELAINE CHAUDHARY M.D.Performed By: #### UPE RAND ####[facility] ,Protein Electrophoresis, Serumon 49-76-1193Bqefp-1-Globulin0.3 g/dLNormal0.0-0.4The [facility] Health Physician GroupComment on above:Performed By: #### KAPPA, SPE ####[facility] ,Qaxqs-0-Kwmdwidf7.9 g/dLNormal0.4-1.0 The [facility] Health Physician GroupComment on above:Performed By: #### KAPPA, SPE ####[facility] ,Beta Globulin1.1 g/dLNormal0.7-1.3The [facility] Health Physician GroupComment on above:Performed By: #### KAPPA, SPE ####[facility] ,Gamma Globulin0.9 g/dLNormal0.4-1.8[facility] Comment on above:Performed By: #### KAPPA, SPE ####[facility] ,M-Damien 0.4 g/dLNormalNot ObservedThe [facility]any Health Physician GroupComment on above: Performed By: #### KAPPA, SPE ####[facility] ,SPE-NoteCommentNormal. The [facility] Health Physician GroupComment on above:Result Comment: Protein electrophoresis scan will follow via computer, mail, or butt maker delivery. Pe rformed at: [facility] [address] [id number] Pan Washer Hand: Jhoan Rich PhD, Phone: [phone] By: #### KAPPA, SPE ####[facility] ,Serum free kappa light chain measurementOrdered By: Roxane Bills on 29-07-1057Ufflhgwugknvem light chains.kappa.free (S) [Mass/Vol] 128.9 mg/LHigh3.3-19.4FPaulding County Hospitalerum globulin measurement (mass/volume)Ordered By: Roxane Bills on 01-98-9459Nznyixcn (S) [Mass/Vol]3.2 g/dLNormal2.2-3.9Madison HealthComment on above:Performed By: #### KAPPA, SPE ####[facility] ,Serum immunoglobulin free kappa light chains/immunoglobulin free lambda light chains Ordered By: Roxane Bills on 03-70-0640Wjirjjptflccxt light chains.kappa.free/Immunoglobulin light chains.lambda.free (S) [Mass ratio]3.40 High0.26-1.65TriHealtherum or plasma albumin measurement (mass/volume)Ordered By: Roxane Bills on 84-73-0292Pysgrhw [Mass/Vol] 3.1 g/dLNormal2.9-4.4FClermont County HospitalComment on above:Performed By: #### KAPPA, SPE ####[facility] ,Serum or plasma albumin/globulin mass ratioOrdered By: Roxane Bills on 47-26-0915Zmkpkog/Globulin [Mass ratio]1.0 {ratio}Normal0.7-1.7FClermont County HospitalComment on above:Performed By: #### KAPPA, SPE ####[facility] ,Serum or plasma alpha 1 globulin measurement by electrophoresis (mass/volume)Ordered By: Roxane Bills on 12-06-2024 Alpha 1 globulin Elph [Mass/Vol]0.3 g/dL0.0-0.4FClermont County Hospital Serum or plasma alpha 2 globulin measurement by electrophoresis (mass/volume) Ordered By: Roxane Bills on 25-24-3448Cbovb 2 globulin Elph [Mass/Vol]0.9 g/dL 0.4-1.0TriHealtherum or plasma beta globulin measurement by electrophoresis (mass/volume)Ordered By: Roxane Bills on 12-06-2024 Beta globulin Elph [Mass/Vol]1.1 g/dL0.7-1.3FClermont County Hospital Serum or plasma gamma globulin measurement by electrophoresis (mass/volume) Ordered By: Roxane Bills on 67-47-4956Qobeh globulin Elph [Mass/Vol]0.9 g/dL0.4-1.8 TriHealtherum or plasma immunoglobulin free lambda light chains measurement (mass/volume)Ordered By: Roxane Bills on 12-06-2024 Immunoglobulin light chains.lambda.free [Mass/Vol]37.9 mg/LHigh5.7-26.3FPaulding County Hospitalerum total protein measurementOrdered By: Roxane Bills on 70-18-0903Kxbjvcb [Mass/Vol]6.3 g/dLNormal6.0-8.5FClermont County HospitalComment on above:Performed By: #### KAPPA, SPE ####[facility] , Urine alpha 1 globulin/total protein by electrophoresisOrdered By: Roxane Bills on 43-22-8472Gdtrv 1 globulin Elph (U) [Mass fraction]5.1 %.Madison HealthUrine alpha 2 globulin/total protein ratio by electrophoresis Ordered By: Roxane Bills on 53-91-7592Fewax 2 globulin Elph (U) [Mass fraction]26.3 %.Madison HealthUrine beta globulin measurement by electrophoresis (mass/volume)Ordered By: Roxane Bills on 67-73-8761Gvaq globulin Elph (U) [Mass/Vol]25.1 %.Madison HealthUrine protein measurement (mass/volume)Ordered By: Roxane Bills on 05-05-1013Wyyefbr (U) [Mass/Vol]6.3 mg/dLNormalNot Estab.Madison HealthComment on above:Performed By: #### UPE RAND ####[facility] ,Alanine aminotransferase [Enzymatic activity/volume] in Serum or PlasmaOrdered By: Roxane Bills on 42-94-5460CZQ [Catalytic activity/Vol]38 U/LNormal7-52Madison HealthComment on above:Performed By: #### CMP, CBC ####[facility] [address] [place] [address] USAAlbumin [Mass/volume] in Serum or Plasma by Bromocresol green (BCG) dye binding metho Ordered By: Roxane Bills on 82-46-6591Jxihayc BCG dye [Mass/Vol]3.5 g/dL3.5-5.7 Madison HealthAlkaline phosphatase [Enzymatic activity/volume] in Serum or PlasmaOrdered By: Roxane Bills on 86-19-2096MUB [Catalytic activity/Vol]84 U/YEyfzzl57-106KxbswcfkqMadison Health Comment on above:Performed By: #### CMP, CBC ####[address] [address] USAAspartate aminotransferase [Enzymatic activity/volume] in Serum or PlasmaOrdered By: Roxane Bills on 59-45-3797UWX [Catalytic activity/Vol]25 U/ODpyjiz40-54OpjfvkhcfMadison Health Comment on above:Performed By: #### CMP, CBC ####[place] [address] USABasophils [#/volume] in Blood by Automated countOrdered By: Roxane Bills on 59-72-5364Tqydyrnwv (Bld) [#/Vol]0.0 10*3/uLNormal0.0-0.2FClermont County HospitalComment on above:Result Comment: PERFORMED BY:[address] [place], [place] [phone] MEDICAL DIRECTORELAINE CHAUDHARY M.D.Performed By: #### CMP, CBC ####[address] [address] USABasophils/100 leukocytes in Blood by Automated countOrdered By: Roxane Bills on 91-66-2635Tjpwgmxrg/100 WBC (Bld)0.7 %Normal.Madison HealthComment on above:Performed By: #### CMP, CBC ####[address] [address] USABilirubin.total [Mass/volume] in Serum or PlasmaOrdered By: Roxane Bills on 62-70-5566Vzujpdygi [Mass/Vol]0.4 mg/dLNormal0.3-1.0Madison HealthComment on above:Performed By: #### CMP, CBC ####[address] [address] USACBC W Auto Differential panel (Bld)on 11-89-3268Mgqyakcyk (Bld) [#/Vol]0 10*3/uL0.0 - 0.2 10*3/uLNOMS HealthcareBasophils/100 WBC Manual cnt (Syn fld)0.7 %.[facility] CenterEosinophils (Bld) [#/Vol]0.3 10*3/uL0.0 - 0.45 10*3/uLNOMS HealthcareEosinophils/100 WBC Manual cnt (Syn fld)8.5 %.[facility] CenterErythrocyte distribution width (RBC) [Ratio]15.5 %High11.9 - 15.3 % [facility] CenterHematocrit (Bld) [Volume fraction]37.8 %34.0 - 46.4 %[facility] CenterHemoglobin (Bld) [Mass/Vol]12.3 g/dL11.8 - 15.4 g/dLHedrick Medical Center Interpretation and review of laboratory resultsAbnormalHedrick Medical Center Lymphocytes (Bld) [#/Vol]0.6 10*3/uLLow1.00 - 4.8 10*3/uLNOMS Healthcare Lymphocytes/100 WBC Manual cnt (Syn fld)20.4 %.[facility] Medical CenterMCH (RBC) [Entitic mass]29.2 pg24.7 - 34.3 pgNevada Regional Medical CenterHC (RBC) [Mass/Vol]32.4 g/dL32.0 - 35.0 g/dLHedrick Medical CenterMCV (RBC) [Entitic vol]90.1 fL80 - 100 fLHedrick Medical Center Monocytes (Bld) [#/Vol]0.6 10*3/uL0.0 - 0.8 10*3/uLNOMS Healthcare Monocytes+Macrophages/100 WBC Manual cnt (Syn fld)20.5 %.[facility] Neutrophils (Bld) [#/Vol]1.5 10*3/uLLow1.8 - 7.7 10*3/uLNOMS Healthcare Neutrophils/100 WBC Manual cnt (Syn fld)49.9 %.[facility] Medical CenterNRBC0.2 /100{WBC}0 - 0.5 /100{WBC}[facility] Medical CenterPlatelet mean volume (Bld) [Entitic vol]8 fL6.3 - 10.7 fLNOMS HealthcarePlatelets (Bld) [#/Vol]205 10*3/uL150 - 450 10*3/uLNOMS HealthcareRBC LM.HPF (Urine sed) [#/Area]4.2 10*6/uL3.60 - 5.00 10*6/uLNOMS HealthcareWBC (Bld) [#/Vol]3 10*3/uLLow3.8 - 11.6 10*3/uLNOMS HealthcareWBC LM.HPF (Urine sed) [#/Area]3 [CFU]/mLLow3.8 - 11.6 [CFU]/mLNOMS HealthcareNOMS HealthcareCalcium [Mass/volume] in Serum or PlasmaOrdered By: Roxane Bills on 76-13-0548Pqoejef [Mass/Vol]7.3 mg/dLLow8.6-10.3FClermont County HospitalComment on above:Performed By: #### CMP, CBC ####[place] [address] USACarbon dioxide, total [Moles/volume] in Serum or PlasmaOrdered By: Roxane Bills on 47-83-5012XK3 [Moles/Vol]37.2 mmol/LHigh21.0-31.0Madison HealthComment on above:Performed By: #### CMP, CBC ####[place] [address] USAChloride [Moles/volume] in Serum or PlasmaOrdered By: Roxane Bills on 40-91-4383Egjrrpmn [Moles/Vol]99 mmol/KMbnxeu00-721ZifoiztplMadison HealthComment on above:Performed By: #### CMP, CBC ####[place] [address] [facility] Complete Blood Count Auto Diffon 92-81-8690Yvxz Corpuscular HGB Conc32.4 g/dL Rddobl44.0-35.0The [facility]any Health Physician GroupComment on above:Performed By: #### CMP, CBC ####[place] [address] USANRBC%0.2 /100{WBC}Normal0-0.5The [facility]any Health Physician GroupComment on above: Performed By: #### CMP, CBC ####[place] [address] USAWhite Blood Count3.0 [CFU]/mLLow3.8-11.6The [facility] Health Physician GroupComment on above:Performed By: #### CMP, CBC ####[place] [address] [facility] Comprehensive Metabolic Panelon 86-51-7597Cudimhw [Mass/Vol]3.5 g/dLNormal 3.5-5.7The [facility] Health Physician GroupComment on above:Performed By: #### CMP, CBC ####[address] Creatinine Clr Calc Qivnqnmq52.20NoCentral Harnett Hospital Physician [facility] Medical CenterComment on above:Result Comment: PERFORMED BY:[address] [place], [place] [phone] MEDICAL LEESA CHAUDHARY M.D.Performed By: #### CMP, CBC ####[place] [address] USAGFR/1.73 sq M.predicted MDRD (S/P/Bld) [Vol rate/Area]47.085 mL/min/{1.73_m2}NormalThe [facility] Physician [facility] Medical CenterComment on above:Performed By: #### CMP, CBC ####[place] [address] USAComprehensive metabolic panelon 00-22-5266Fzlkasb [Mass/Vol]3.5 g/dL3.5 - 5.7 g/dLNOMS HealthcareAlbumin/Globulin [Mass [...] mg/dLHigh0.60 - 1.20 mg/dLNOMS HealthcareCREATININE CLR CALC NVUANZJL75.2NOMS HealthcareGFR/1.73 sq M.predicted MDRD (S/P/Bld) [Vol rate/Area]47.085 mL/min/{1.73_m2}NOMS HealthcareGlobulin (S) [Mass/Vol]2.5 g/dLNOMS HealthcareGlucose [Mass/Vol]110 mg/qXJpoi49 - 100 mg/dLNOPA HealthcareComment on above:Random Glucose Reference Range is [...] [Mass/volume] in Serum or PlasmaOrdered By: Roxane iBlls on 97-00-4664Dwskzcoyer [Mass/Vol]1.26 mg/dLHigh0.60-1.20Madison HealthComment on above:Performed By: #### CMP, CBC ####[facility] [address] [place] [address] USAEosinophils [#/volume] in Blood by Automated countOrdered By: Roxane Bills on 15-32-7037Kpycntvuflq (Bld) [#/Vol]0.3 10*3/uLNormal0.0-0.45Madison HealthComment on above:Performed By: #### CMP, CBC ####[place] [address] USAEosinophils/100 leukocytes in Blood by Automated countOrdered By: Roxane Bills on 07-80-9069Nvaxjqrdhov/100 WBC (Bld)8.5 %Normal. Madison HealthComment on above:Performed By: #### CMP, CBC ####[address] Erythrocyte distribution width [Ratio] by Automated countOrdered By: Roxane Bills on 67-60-3399Xrxgdjveetn distribution width (RBC) [Ratio]15.5 %High11.9-15.3 Madison HealthComment on above:Performed By: #### CMP, CBC ####[address] Erythrocytes [#/volume] in Blood by Automated countOrdered By: Roxane Bills on 21-30-7831JPR (Bld) [#/Vol]4.20 10*6/uLNormal3.60-5.00Madison HealthComhurley medical center on above:Performed By: #### CMP, CBC ####[place] [address] USAGlomerular filtration rate [Volume Rate/Area] in Serum, Plasma or Blood by CreatinineOrdered By: Roxane Bills on 54-93-8745Tyfvywemfo filtration rate [Volume Rate/Area] in Serum, Plasma or Blood by Yjloznpsts95.085 mL/MinMadison HealthGlucose [Mass/volume] in Serum or PlasmaOrdered By: Roxane Bills on 19-54-0194Ybrrtcz [Mass/Vol]110 mg/rDWubw43-026AaazqepqpMadison HealthComment on above: Result Comment: Random Glucose Reference Range is dependent on time and content of last meal. Glucose of more than 200 mg/dL in a nonstressed, ambulatory subject supports the diagnosis of Diabetes Mellitus. ADA recommended reference rangePerformed By: #### CMP, CBC ####[place] [id number] USAHematocrit [Volume Fraction] of Blood by Automated countOrdered By: Roxane Bills on 18-86-5064Mddfubrrpz (Bld) [Volume fraction]37.8 % Cdtril16.0-46.4FClermont County HospitalComment on above:Performed By: #### CMP, CBC ####[place] [address] USAHemoglobin [Mass/volume] in BloodOrdered By: Roxane Bills on 12-05-2024 Hemoglobin (Bld) [Mass/Vol]12.3 g/tMOfmgza38.8-15.4FClermont County HospitalComment on above:Performed By: #### CMP, CBC ####[place] [address] USALeukocytes [#/volume] corrected for nucleated erythrocytes in Blood by Automated counOrdered By: Roxane Bills on 21-00-8191GHP corrected for nucl RBC Auto (Bld) [#/Vol]3.0 10*3/uLLow 3.8-11.6FClermont County HospitalLeukocytes [#/volume] in Blood by Automated countOrdered By: Roxane Bills on 10-03-9067HLN (Bld) [#/Vol]3.0 10*3/uL Low3.8-11.6FClermont County HospitalComment on above:Performed By: #### CMP, CBC ####[place] [address] USALymphocytes [#/volume] in Blood by Automated countOrdered By: Roxane Bills on 75-05-6391Vqwthzwoiue (Bld) [#/Vol]0.6 10*3/uLLow1.00-4.8Madison HealthComment on above:Performed By: #### CMP, CBC ####[place] [address] USALymphocytes/100 leukocytes in Blood by Automated countOrdered By: Roxane Bills on 12-05-2024 Lymphocytes/100 WBC (Bld)20.4 %Normal.Madison HealthComment on above:Performed By: #### CMP, CBC ####[address] [address] [facility] [Entitic mass] by Automated countOrdered By: Roxane Bills on 49-17-9509WNL (RBC) [Entitic mass]29.2 rzKirgzg34.7-34.3 Madison HealthComment on above:Performed By: #### CMP, CBC ####[place] [address] [facility] Auto (RBC) [Mass/Vol]Ordered By: Roxane Bills on 97-41-6806DIPN (RBC) [Mass/Vol] 32.4 g/dL32.0-35.0Middletown HospitalV [Entitic volume] by Automated countOrdered By: Roxane Bills on 26-88-0800EJO (RBC) [Entitic vol]90.1 fL Mxndfu52-677SbreusnwwMadison HealthComment on above:Performed By: #### CMP, CBC ####[place] [address] USAMonocytes [#/volume] in Blood by Automated countOrdered By: Roxane Bills on 06-99-7715Ayesztntd (Bld) [#/Vol]0.6 10*3/uLNormal0.0-0.8Madison HealthComment on above:Performed By: #### CMP, CBC ####[place] [address] USAMonocytes/100 leukocytes in Blood by Automated countOrdered By: Roxane Bills on 12-05-2024 Monocytes/100 WBC (Bld)20.5 %Normal.Madison HealthComment on above:Performed By: #### CMP, CBC ####[place] [address] USANeutrophils [#/volume] in Blood by Automated count Ordered By: Roxane Bills on 22-87-7931Dpfbqdwaiak (Bld) [#/Vol]1.5 10*3/uLLow 1.8-7.7FClermont County HospitalComment on above:Performed By: #### CMP, CBC ####[place] [address] [place] Neutrophils/100 leukocytes in Blood by Automated countOrdered By: Roxane Bills on 53-66-4056Xsmivjcvmje/100 WBC (Bld)49.9 %Normal.Madison HealthComment on above:Performed By: #### CMP, CBC ####[place] [address] USANo Panel InformationOrdered By: Roxane Bills on .20Madison HealthNucleated erythrocytes [Presence] in Blood by Automated countOrdered By: Roxane Bills on 89-12-9640Jpmafphqp RBC Auto Ql (Bld)0.2 /100{WBC}0-0.5FClermont County HospitalPlatelet mean volume [Entitic volume] in Blood by Automated count Ordered By: Roxane Bills on 23-35-4957Moytcinb mean volume (Bld) [Entitic vol]8.0 fLNormal6.3-10.7FClermont County HospitalComment on above:Performed By: #### CMP, CBC ####[place] [address] USAPlatelets [#/volume] in Blood by Automated countOrdered By: Roxane Bills on 30-57-5436Smjqvvcfh (Bld) [#/Vol]205 10*3/zHEznmrk745-113CqkjcquguMadison HealthComment on above:Performed By: #### CMP, CBC ####[place] [address] USAPotassium [Moles/volume] in Serum or PlasmaOrdered By: Roxane Bills on 05-42-6156Odxwuyrsr [Moles/Vol]4.6 mmol/LNormal3.5-5.1FClermont County HospitalComment on above:Performed By: #### CMP, CBC ####[place] [address] USAProtein [Mass/volume] in Serum or PlasmaOrdered By: Roaxne Bills on 92-18-4216Rqblmvp [Mass/Vol]6.0 g/dLLow6.4-8.9Madison HealthComment on above:Performed By: #### CMP, CBC ####[place] [address] USASerum globulin measurement by calculation (mass/volume)Ordered By: Roxane Bills on 12-05-2024 Globulin (S) [Mass/Vol]2.5 g/dLNoSt. Mary's Medical CenterComment on above:Performed By: #### CMP, CBC ####[place] [address] USASerum or plasma albumin/globulin mass ratioOrdered By: Roxane Bills on 69-86-9417Mynwwwd/Globulin [Mass ratio]1.4 {ratio}Normal Madison HealthComment on above:Performed By: #### CMP, CBC ####[place] [address] USASerum or plasma anion gap determinationOrdered By: Roxane Bills on 17-07-4446Pryas gap [Moles/Vol]11.4 mmol/LNormal6.0-15.0Madison HealthComment on above:Performed By: #### CMP, CBC ####[place] [address] USASodium [Moles/volume] in Serum or PlasmaOrdered By: Roxane Bills on 33-67-2477Pulysx [Moles/Vol]143 mmol/YInmiel818-942RwgvyeldgMadison HealthComment on above:Performed By: #### CMP, CBC ####[place] [address] USAUrea nitrogen [Mass/volume] in Serum or PlasmaOrdered By: Roxane Bills on 86-56-3749Ojmc nitrogen [Mass/Vol]16 mg/dLNormal7-25Madison HealthComment on above:Performed By: #### CMP, CBC ####[address] [address] USABasophils/100 leukocytes in Blood by Manual countOrdered By: Roxaen Bills on 80-10-5189Cnkwtjmtb/100 WBC (Bld)1 %Normal0-2 Madison HealthComment on above:Performed By: #### CMP, DIFF CBC ####[address] [address] [facility] Comprehensive Metabolic Panelon 40-60-2034Ykghchw [Mass/Vol]3.3 g/dLLow3.5-5.7 The [facility] Health Physician GroupComment on above:Performed By: #### CMP, DIFF CBC ####[address] [address] [facility] Albumin/Globulin [Mass ratio]1.1 {ratio}NormalThe [facility] Physician [facility] Comment on above:Performed By: #### CMP, DIFF CBC ####[address] [address] USAALP [Catalytic activity/Vol]79 U/L Qkvtcl85-154Wxv [facility] Hospital Of Nittany ValleyComment on above:Performed By: #### CMP, DIFF CBC ####[address] [address] USAALT [Catalytic activity/Vol]37 U/LNormal7-52The [facility] Of Nittany ValleyComment on above:Performed By: #### CMP, DIFF CBC ####[address] [address] USAAnion gap [Moles/Vol]8.0 mmol/LNormal6.0-15.0The [facility] Of Nittany ValleyComment on above:Performed By: #### CMP, DIFF CBC ####[address] [address] USAAST [Catalytic activity/Vol]15 U/AVikwpt94-70Ing [facility] GroupComment on above:Performed By: #### CMP, DIFF CBC ####[address] [address] USABilirubin [Mass/Vol]0.5 mg/dL Normal0.3-1.0The [facility] Health Physician GroupComment on above:Performed By: #### CMP, DIFF CBC ####[address] [address] USACalcium [Mass/Vol]7.5 mg/dLLow8.6-10.3The [facility] Comment on above:Performed By: #### CMP, DIFF CBC ####[address] [address] USAChloride [Moles/Vol]98 mmol/LNormal 98-107The [facility] Health Physician GroupComment on above:Performed By: #### CMP, DIFF CBC ####[address] [address] [place] CO2 [Moles/Vol]39.8 mmol/LHigh21.0-31.0The [facility] Health Physician GroupComment on above:Performed By: #### CMP, DIFF CBC ####[address] [address] USACreatinine [Mass/Vol]1.19 mg/dLNormal0.60-1.20 The [facility] Health Physician GroupComment on above:Performed By: #### CMP, DIFF CBC ####[address] [address] [place] Creatinine Clr Calc Bxdzkcuk10.76NormCleveland Clinic Martin South Hospital Physician GroupComment on above:Result Comment: PERFORMED BY:[address] [place]Jose[place]BR[place], [place] [phone] MEDICAL LEESA CHAUDHARY M.D.Performed By: #### CMP, DIFF CBC ####[address] [address] USAGFR/1.73 sq M.predicted MDRD (S/P/Bld) [Vol rate/Area]50.428 mL/min/{1.73_m2}NormalThe [facility] Health Physician GroupComment on above:Performed By: #### CMP, DIFF CBC ####[address] [address] USAGlobulin (S) [Mass/Vol]3.1 g/dLNoCentral Harnett Hospital Physician GroupComment on above:Performed By: #### CMP, DIFF CBC ####[address] [address] USAGlucose [Mass/Vol]159 mg/nHYrof36-507Wci [facility] Physician GroupComment on above: Result Comment: Random Glucose Reference Range is dependent on time and content of last meal. Glucose of more than 200 mg/dL in a nonstressed, ambulatory subject supports the diagnosis of Diabetes Mellitus. ADA recommended reference rangePerformed By: #### CMP, DIFF CBC ####[place] [address] USAPotassium [Moles/Vol]3.8 mmol/LNormal3.5-5.1 The [facility] Health Physician GroupComment on above:Performed By: #### CMP, DIFF CBC ####[place] [address] USAProtein [Mass/Vol]6.4 g/dLNormal6.4-8.9The [facility] Health Physician GroupComment on above: Performed By: #### CMP, DIFF CBC ####[place] [address] USASodium [Moles/Vol]142 mmol/ZKannxd839-757Uie [facility] Physician GroupComment on above:Performed By: #### CMP, DIFF CBC ####[place] [address] USAUrea nitrogen [Mass/Vol]13 mg/dLNormal7-25The [facility] Health Physician GroupComment on above:Performed By: #### CMP, DIFF CBC ####[place] [address] USAComprehensive metabolic panelon 11-28-2024 Albumin [Mass/Vol]3.3 g/dLLow3.5 [...] mg/dL0.60 - 1.20 mg/dLNOMS HealthcareCREATININE CLR CALC VKPTTMLW53.76NOMS HealthcareGFR/1.73 sq M.predicted MDRD (S/P/Bld) [Vol rate/Area]50.428 mL/min/{1.73_m2}[facility] Globulin (S) [Mass/Vol]3.1 g/dLNOMS HealthcareGlucose [Mass/Vol]159 mg/jYLagw10 - 100 mg/dLNOMS HealthcareComment on above:Random Glucose [...] - 25 mg/dLNOMS HealthcareNOMS HealthcareDiff and CBCon 68-56-2722Ugjnsyjtpji distribution width (RBC) [Ratio] 15.0 %Ixdkhf72.9-15.3The [facility] Physician GroupComment on above:Performed By: #### CMP, DIFF CBC ####[facility] [address] [place] [address] USAHematocrit (Bld) [Volume fraction]35.3 %Ovodia38.0-46.4The [facility] Health Physician GroupComment on above:Performed By: #### CMP, DIFF CBC ####[place] [address] [place] Hemoglobin (Bld) [Mass/Vol]11.5 g/dLLow11.8-15.4The [facility] Comment on above:Performed By: #### CMP, DIFF CBC ####[place] [address] [facility] ([facility]BC) [Entitic mass]29.2 pgNormal 24.7-34.3The [facility] Health Physician GroupComment on above:Performed By: #### CMP, DIFF CBC ####[place] [address] [facility] (RBC) [Entitic vol]89.6 sHMxuvma59-788Cxt [facility] Comment on above:Performed By: #### CMP, DIFF CBC ####[place] [address] USAMean Corpuscular HGB Conc32.6 g/dL Wjaolx90.0-35.0The [facility] CenterComment on above:Performed By: #### CMP, DIFF CBC ####[place] [id number] USAMicrocytosisSlightNoCentral [facility] CenterComment on above: Performed By: #### CMP, DIFF CBC ####[place] [id number] USAPlatelet EstimateNormalNormalNormCleveland Clinic [facility] Physician GroupComment on above:Performed By: #### CMP, DIFF CBC ####[place] [id number] USAPlatelet mean volume (Bld) [Entitic vol]7.3 fLNormal6.3-10.7The [facility] Physician GroupComment on above:Result Comment: PERFORMED BY:[address] [place] [id number] MEDICAL LEESA CHAUDHARY M.D.Performed By: #### CMP, DIFF CBC ####[address] [address] USAPlatelet MorphologyNormalNormalNoCentral Harnett Hospital Physician GroupComment on above:Result Comment: PERFORMED BY:[address] [place], [place] [id number] MEDICAL DIRECTORELAINE CHAUDHARY M.D.Performed By: #### CMP, DIFF CBC ####[address] [address] [place] Platelets (Bld) [#/Vol]169 10*3/sBQwvlxo711-454Hpi [facility] Comment on above:Performed By: #### CMP, DIFF CBC ####[address] [address] USAPolychromasiaSlightNoCentral Harnett Hospital [facility]ician [facility]. (Sonny) Montgomery Va Medical CenterComment on above:Performed By: #### CMP, DIFF CBC ####[address] [address] USARBC (Bld) [#/Vol]3.94 10*6/uLNormal3.60-5.00The [facility]any Health Physician GroupComment on above:Performed By: #### CMP, DIFF CBC ####[address] [address] USAReactive Lymphocytes2 %Normal0-12The [facility] Health Physician GroupComment on above:Performed By: #### CMP, DIFF CBC ####[address] [address] USAWBC (Bld) [#/Vol]3.1 10*3/uLLow3.8-11.6The [facility] Health Physician GroupComment on above:Performed By: #### CMP, DIFF CBC ####[address] [address] USAWhite Blood Count3.1 [CFU]/mLLow3.8-11.6The [facility] Health Physician GroupComment on above:Performed By: #### CMP, DIFF CBC ####[address] [address] USAEosinophils/100 leukocytes in Blood by Manual countOrdered By: Roxane Bills on 69-81-8036Nzgmqidnulm/100 WBC (Bld)12 %High1-3FClermont County HospitalComment on above:Performed By: #### CMP, DIFF CBC ####[address] [place] [address] USAErythrocyte morphology finding [Identifier] in BloodOrdered By: Roxane Bills on 62-83-8586MEE morphology finding Nom (Bld)N/AFClermont County HospitalLymphocytes/100 leukocytes in Blood by Manual countOrdered By: Roxane Bills on 28-54-2980Kjjurpmecgn/100 WBC (Bld)25 %Syafez22-96JaikzutznMadison HealthComment on above:Performed By: #### CMP, DIFF CBC ####[address] [address] USAMagnesium [Mass/volume] in Serum or PlasmaOrdered By: Sugey Cummins on 74-47-4127Qfqagnluq [Mass/Vol]1.4 mg/dLLow1.9-2.7FClermont County HospitalComment on above:Result Comment: PERFORMED BY:[address] [place], [place] [phone] MEDICAL DIRECTORELAINE CHAUDHARY M.D.Performed By: #### MG ####[address] [address] USAMicrocytes LM Ql (Bld)Ordered By: Roxane Bills on 81-78-1135Bzwsptybdj Ql (Bld) SlightMadison HealthMonocytes/100 leukocytes in Blood by Manual countOrdered By: Roxane Bills on 87-16-4904Vlluzmnxd/100 WBC (Bld)6 %Normal 2-11Madison HealthComment on above:Performed By: #### CMP, DIFF CBC ####[address] [address] USAPlatelet adequacy [Presence] in Blood by Light microscopyOrdered By: Roxane Bills on 23-83-2043Ysnqhgfup LM Ql (Bld)NormalNormWyandot Memorial HospitalPlatelet morphology finding [Identifier] in BloodOrdered By: Roxane Bills on 28-18-6078Eiobfbzt morphology finding Nom (Bld)NormalNormWyandot Memorial HospitalPolychromasia [Presence] in Blood by Light microscopyOrdered By: Roxane Bills on 26-54-2865Puhpmnqlkmkwh LM Ql (Bld)SlightTriHealthegmented neutrophils/100 leukocytes in Blood by Manual countOrdered By: Roxane Bills on 18-88-7744Nsyzpseur neutrophils/100 WBC (Bld)55 %Cpjlav86-40 Madison HealthComment on above:Performed By: #### CMP, DIFF CBC ####[facility] [address] [place] [address] [place] Variant lymphocytes/100 WBC Manual cnt (Bld)Ordered By: Roxane Bills on 11-28-2024 Variant lymphocytes/100 WBC (Bld)2 %0-12Madison HealthAlanine aminotransferase [Enzymatic activity/volume] in Serum or PlasmaOrdered By: Roxane Bills on 38-96-3070KNU [Catalytic activity/Vol]55 U/LHigh7-52Madison HealthComment on above:Performed By: #### CBC, CMP ####[facility] [address] [place] [address] USAAlbumin [Mass/volume] in Serum or Plasma by Bromocresol green (BCG) dye binding methoOrdered By: Roxane Bills on 35-18-7306Rcifwbv BCG dye [Mass/Vol]3.4 g/dLLow3.5-5.7FClermont County HospitalAlkaline phosphatase [Enzymatic activity/volume] in Serum or PlasmaOrdered By: Roxane Bills on 72-08-3713VQS [Catalytic activity/Vol]106 U/L Jkdh10-466LefptgrwtMadison HealthComment on above:Performed By: #### CBC, CMP ####[id number] USAAspartate aminotransferase [Enzymatic activity/volume] in Serum or Plasma Ordered By: Roxane Bills on 41-50-1855PXE [Catalytic activity/Vol]29 U/JSuksvc67-19 Madison HealthComment on above:Performed By: #### CBC, CMP ####[address] [address] [place] Basophils [#/volume] in Blood by Automated countOrdered By: Roxane Bills on 64-00-5032Voyjdrpyv (Bld) [#/Vol]0.0 10*3/uLNormal0.0-0.2FClermont County HospitalComment on above:Result Comment: PERFORMED BY:[address] [place], [place] [phone] MEDICAL DIRECTORELAINE CHAUDHARY M.D.Performed By: #### CBC, CMP ####[address] USABasophils/100 leukocytes in Blood by Automated countOrdered By: Roxane Bills on 02-98-9613Rpvlbwgtw/100 WBC (Bld)0.3 %Normal.Madison HealthComment on above:Performed By: #### CBC, CMP ####[address] USABilirubin.total [Mass/volume] in Serum or PlasmaOrdered By: Roxane Bills on 16-68-0117Coavnzsne [Mass/Vol]0.4 mg/dLNormal0.3-1.0Madison HealthComhurley medical center on above:Performed By: #### CBC, CMP ####[address] USACBC W Auto Differential panel (Bld)on 76-23-4598Nirkkjzaw (Bld) [#/Vol]0 10*3/uL0.0 - 0.2 10*3/uLNOMS HealthcareBasophils/100 WBC Manual cnt (Syn fld)0.3 %.NOMS HealthcareEosinophils (Bld) [#/Vol]0.4 10*3/uL0.0 - 0.45 10*3/uLNOMS Healthcare Eosinophils/100 WBC Manual cnt (Syn fld)5.6 %.NOMS HealthcareErythrocyte distribution width (RBC) [Ratio]15 %11.9 - 15.3 %[facility] HealthcareHematocrit (Bld) [Volume fraction]36.4 %34.0 - 46.4 %[facility] HealthcareHemoglobin (Bld) [Mass/Vol] 11.9 g/dL11.8 - 15.4 g/dLAMERICAN FORK HOSPITAL HealthcareInterpretation and review of laboratory resultsAbnormalAMERICAN FORK HOSPITAL HealthcareLymphocytes (Bld) [#/Vol]0.5 10*3/uLLow1.00 - 4.8 10*3/uLNOMS HealthcareLymphocytes/100 WBC Manual cnt (Syn fld)6.8 %.[facility] CenterH (RBC) [Entitic mass]29.3 pg24.7 - 34.3 pgNevada Regional Medical CenterHC (RBC) [Mass/Vol]32.8 g/dL32.0 - 35.0 g/dLNevada Regional Medical CenterV (RBC) [Entitic vol]89.4 fL 80 - 100 fLAMERICAN FORK HOSPITAL HealthcareMonocytes (Bld) [#/Vol]0.4 10*3/uL0.0 - 0.8 10*3/uL [facility] HealthcareMonocytes+Macrophages/100 WBC Manual cnt (Syn fld)6 %.[facility] HealthcareNeutrophils (Bld) [#/Vol]6.1 10*3/uL1.8 - 7.7 10*3/uLNOMS Healthcare Neutrophils/100 WBC Manual cnt (Syn fld)81.3 %.[facility] HealthcareNRBC0 /100{WBC}0 - 0.5 /100{WBC}[facility] HealthcarePlatelet mean volume (Bld) [Entitic vol]7.8 fL6.3 - 10.7 fLAMERICAN FORK HOSPITAL HealthcarePlatelets (Bld) [#/Vol]221 10*3/uL150 - 450 10*3/uLNOMS HealthcareRBC LM.HPF (Urine sed) [#/Area]4.07 10*6/uL3.60 - 5.00 10*6/uLNOMS HealthcareWBC (Bld) [#/Vol]7.4 10*3/uL3.8 - 11.6 10*3/uLNOMS HealthcareWBC LM.HPF (Urine sed) [#/Area]7.4 [CFU]/mL3.8 - 11.6 [CFU]/mLNOMS HealthcareNOMS HealthcareCalcium [Mass/volume] in Serum or PlasmaOrdered By: Roxane Bills on 71-43-8342Igyekcx [Mass/Vol]7.9 mg/dLLow8.6-10.3FClermont County HospitalComment on above:Performed By: #### CBC, CMP ####[place] [address] USACarbon dioxide, total [Moles/volume] in Serum or PlasmaOrdered By: Roxane Bills on 15-95-9015BE5 [Moles/Vol]40.1 mmol/LHigh21.0-31.0Madison HealthComment on above:Performed By: #### CBC, CMP ####[place] [address] USAChloride [Moles/volume] in Serum or PlasmaOrdered By: Roxane Bills on 90-53-4722Rxaiteds [Moles/Vol]97 mmol/LDeu07-855ZkjhvybpcMadison HealthComment on above:Performed By: #### CBC, CMP ####[address] [facility] Complete Blood Count Auto Diffon 34-81-2869Mxil Corpuscular HGB Conc32.8 g/dL Cbyuhv26.0-35.0The Alleghany Health Physician GroupComment on above:Performed By: #### CBC, CMP ####[address] USANRBC%0.0 /100{WBC}Normal0-0.5The [facility]hany Health Physician GroupComment on above: Performed By: #### CBC, CMP ####[address] USAWhite Blood Count7.4 [CFU]/mLNormal3.8-11.6The [facility] Health Physician GroupComment on above:Performed By: #### CBC, CMP ####[address] [facility] Comprehensive Metabolic Panelon 62-94-8727Btjeyxz [Mass/Vol]3.4 g/dLLow3.5-5.7 The [facility] Health Physician GroupComment on above:Performed By: #### CBC, CMP ####[address] [place] [address] [place] Creatinine Clr Calc Kbrjvmuq82.52NormCleveland Clinic Martin [facility] Physician [facility]. (Sonny) Montgomery Va Medical CenterComment on above:Result Comment: PERFORMED BY:[address] [place], [place] [phone] MEDICAL LEESA CHAUDHARY M.D.Performed By: #### CBC, CMP ####[address] [place] [address] USAGFR/1.73 sq M.predicted MDRD (S/P/Bld) [Vol rate/Area]43.732 mL/min/{1.73_m2}NormalThe [facility] Physician [facility]. (Sonny) Montgomery Va Medical CenterComment on above:Performed By: #### CBC, CMP ####[address] [address] USAComprehensive metabolic panelon 80-80-8741Kpebnwm [Mass/Vol]3.4 g/dLLow3.5 - 5.7 g/dLNOPA HealthcareAlbumin/Globulin [Mass ratio] 1.3 {ratio}NOMS HealthcareALP [Catalytic activity/Vol]106 U/LHigh34 - 104 U/L NOMS HealthcareALT [Catalytic activity/Vol]55 U/LHigh7 - 52 U/LNOMS Healthcare Anion gap [Moles/Vol]9.8 mmol/L6.0 - 15.0NOMS HealthcareAST [Catalytic activity/Vol]29 U/L13 - 39 U/LNOMS HealthcareBilirubin [Mass/Vol]0.4 mg/dL0.3 - 1.0 mg/dLNOMS HealthcareCalcium [Mass/Vol]7.9 mg/dLLow8.6 - 10.3 mg/dLNOPA HealthcareChloride [Moles/Vol]97 mmol/LLow98 - 107 mmol/LNOMS HealthcareCO2 [Moles/Vol]40.1 mmol/LHigh21.0 - 31.0 mmol/LNOMS HealthcareCreatinine (U) [Mass/Vol]1.34 mg/dLHigh0.60 - 1.20 mg/dLNOMS HealthcareCREATININE CLR CALC JGNYKPWE47.52NOMS HealthcareGFR/1.73 sq M.predicted MDRD (S/P/Bld) [Vol rate/Area]43.732 mL/min/{1.73_m2}NOMS HealthcareGlobulin (S) [Mass/Vol]2.7 g/dL NOM HealthcareGlucose [Mass/Vol]123 mg/rEVolu56 - 100 mg/dLNOSt. Luke's Hospital Comment on above:Random Glucose Reference Range is dependent on time and content of last meal. Glucose of more than 200 mg/dL in a nonstressed, ambulatory subject supports the diagnosis of Diabetes Mellitus. ADA recommended reference range Interpretation and review of laboratory resultsAbnormalNOMS HealthcarePotassium [Moles/Vol]3.9 mmol/L3.5 - 5.1 mmol/LNOMS HealthcareProtein [Mass/Vol]6.1 g/dL Low6.4 - 8.9 g/dLNOPA HealthcareSodium [Moles/Vol]143 mmol/L136 - 145 mmol/LNOMS HealthcareUrea nitrogen [Mass/Vol]19 mg/dL7 - 25 mg/dLHedrick Medical CenterNOPA HealthcareCreatinine [Mass/volume] in Serum or PlasmaOrdered By: Roxane Bills on 87-01-5279Xmiqzqtjsr [Mass/Vol]1.34 mg/dLHigh0.60-1.20Madison HealthComment on above:Performed By: #### CBC, CMP ####[facility] [place] [address] USAEosinophils [#/volume] in Blood by Automated countOrdered By: Roxane Bills on 17-34-0423Wntdbtxuzhl (Bld) [#/Vol]0.4 10*3/uLNormal0.0-0.45Madison HealthComment on above:Performed By: #### CBC, CMP ####[facility] [address] [place] [address] USAEosinophils/100 leukocytes in Blood by Automated countOrdered By: Roxane Bills on 03-21-2551Peulugsrkvy/100 WBC (Bld)5.6 %Normal. Madison HealthComment on above:Performed By: #### CBC, CMP ####[address] [address] [facility] Erythrocyte distribution width [Ratio] by Automated countOrdered By: Roxane Bills on 38-49-4714Flcwvvikyks distribution width (RBC) [Ratio]15.0 %Svrufv10.9-15.3 Madison HealthComment on above:Performed By: #### CBC, CMP ####[address] [facility] Erythrocytes [#/volume] in Blood by Automated countOrdered By: Roxane Bills on 90-29-5076BXX (Bld) [#/Vol]4.07 10*6/uLNormal3.60-5.00Madison HealthComment on above:Performed By: #### CBC, CMP ####[address] USAGlucose [Mass/volume] in Serum or PlasmaOrdered By: Roxane Bills on 33-04-5979Yneevvd [Mass/Vol]123 mg/dLHigh 70-100Madison HealthComment on above:Result Comment: Random Glucose Reference Range is dependent on time and content of last meal. Glucose of more than 200 mg/dL in a nonstressed, ambulatory subject supports the diagnosis of Diabetes Mellitus. ADA recommended reference rangePerformed By: #### CBC, CMP ####[address] [address] USAHematocrit [Volume Fraction] of Blood by Automated countOrdered By: Roxane Bills on 46-77-8255Qhqetydlby (Bld) [Volume fraction]36.4 %Fzljit67.0-46.4 Madison HealthComment on above:Performed By: #### CBC, CMP ####[address] [facility] Hemoglobin [Mass/volume] in BloodOrdered By: Roxane Bills on 20-78-8677Jsyqzvxkfs (Bld) [Mass/Vol]11.9 g/rTUgirjl72.8-15.4FClermont County HospitalComment on above:Performed By: #### CBC, CMP ####[address] USALeukocytes [#/volume] corrected for nucleated erythrocytes in Blood by Automated counOrdered By: Roxane Bills on 26-94-1400NYF corrected for nucl RBC Auto (Bld) [#/Vol]7.4 10*3/uL3.8-11.6FClermont County HospitalLeukocytes [#/volume] in Blood by Automated countOrdered By: Roxane Bills on 30-86-1244TOU (Bld) [#/Vol]7.4 10*3/uLNormal3.8-11.6FClermont County HospitalComment on above:Performed By: #### CBC, CMP ####[address] USALymphocytes [#/volume] in Blood by Automated countOrdered By: Roxane Bills on 11-21-2024 Lymphocytes (Bld) [#/Vol]0.5 10*3/uLLow1.00-4.8[facility] Comment on above:Performed By: #### CBC, CMP ####[address] USALymphocytes/100 leukocytes in Blood by Automated countOrdered By: Roxane Bills on 79-34-6131Fufumobtikm/100 WBC (Bld)6.8 %Normal.Madison HealthComment on above:Performed By: #### CBC, CMP ####[address] [facility] [Entitic mass] by Automated countOrdered By: Roxane Bills on 95-84-1855YCR (RBC) [Entitic mass]29.3 dgBeqdxj71.7-34.3FClermont County Hospital Comment on above:Performed By: #### CBC, CMP ####[address] [facility] Auto (RBC) [Mass/Vol]Ordered By: Roxane Bills on 51-76-2155TJRV (RBC) [Mass/Vol]32.8 g/dL32.0-35.0Madison HealthMCV [Entitic volume] by Automated countOrdered By: Roxane Bills on 93-36-8640VWT (RBC) [Entitic vol]89.4 zDUscbzn13-996WanftdjxrMadison HealthComment on above:Performed By: #### CBC, CMP ####[address] [address] USAMonocytes [#/volume] in Blood by Automated countOrdered By: Roxane Bills on 02-20-8574Ymvjqiwzj (Bld) [#/Vol]0.4 10*3/uLNormal0.0-0.8Madison HealthComment on above:Performed By: #### CBC, CMP ####[address] [address] USAMonocytes/100 leukocytes in Blood by Automated countOrdered By: Roxane Bills on 84-79-5047Lsruqfhtc/100 WBC (Bld)6.0 %Normal.Madison HealthComment on above:Performed By: #### CBC, CMP ####[address] [address] USANeutrophils [#/volume] in Blood by Automated countOrdered By: Roxane Bills on 75-25-4176Bitbqpfhaoa (Bld) [#/Vol]6.1 10*3/uLNormal1.8-7.7FClermont County HospitalComment on above:Performed By: #### CBC, CMP ####[address] [address] USANeutrophils/100 leukocytes in Blood by Automated countOrdered By: Roxane Bills on 19-64-1976Bxwkwgwtbnb/100 WBC (Bld)81.3 %Normal. Madison HealthComment on above:Performed By: #### CBC, CMP ####[address] [address] USANo Panel InformationOrdered By: Roxane Bills on 10-32-937659.732 mL/MinMadison Health46.52Madison HealthNucleated erythrocytes [Presence] in Blood by Automated countOrdered By: Roxane Bills on 24-72-7327Fftcctjlc RBC Auto Ql (Bld)0.0 /100{WBC}0-0.5FClermont County HospitalPlatelet mean volume [Entitic volume] in Blood by Automated count Ordered By: Roxnae Bills on 22-95-7208Inmyriyu mean volume (Bld) [Entitic vol]7.8 fLNormal6.3-10.7FClermont County HospitalComment on above:Performed By: #### CBC, CMP ####[address] [address] USAPlatelets [#/volume] in Blood by Automated countOrdered By: Roxane Bills on 77-18-0607Sibzknhdk (Bld) [#/Vol]221 10*3/jUCqkybt423-460DmtuvxjgeMadison HealthComment on above:Performed By: #### CBC, CMP ####[address] USAPotassium [Moles/volume] in Serum or PlasmaOrdered By: Roxane Bills on 47-58-3485Bidtniafj [Moles/Vol]3.9 mmol/LNormal3.5-5.1FClermont County HospitalComment on above:Performed By: #### CBC, CMP ####[address] [address] USAProtein [Mass/volume] in Serum or PlasmaOrdered By: Roxane Bills on 41-36-6058Yeewevn [Mass/Vol]6.1 g/dLLow6.4-8.9Madison HealthComment on above:Performed By: #### CBC, CMP ####[address] USASerum globulin measurement by calculation (mass/volume)Ordered By: Roxane Bills on 11-21-2024 Globulin (S) [Mass/Vol]2.7 g/dLNoSt. Mary's Medical CenterComment on above:Performed By: #### CBC, CMP ####[address] [place] [address] USASerum or plasma albumin/globulin mass ratioOrdered By: Roxane Bills on 26-12-1281Mwctvca/Globulin [Mass ratio]1.3 {ratio}Normal Madison HealthComment on above:Performed By: #### CBC, CMP ####[address] [address] USASerum or plasma anion gap determinationOrdered By: Roxane Bills on 35-59-9802Lzxbz gap [Moles/Vol]9.8 mmol/LNormal6.0-15.0Madison HealthComment on above:Performed By: #### CBC, CMP ####[address] USASodium [Moles/volume] in Serum or PlasmaOrdered By: Roxane Bills on 81-11-4314Rsajly [Moles/Vol]143 mmol/UGpnhjc122-934BktvlyyenMadison HealthComment on above:Performed By: #### CBC, CMP ####[address] USAUrea nitrogen [Mass/volume] in Serum or PlasmaOrdered By: Roxane Bills on 11-81-4631Iwue nitrogen [Mass/Vol]19 mg/dLNormal7-25Madison HealthComment on above:Performed By: #### CBC, CMP ####[address] [address] USAECH echo transthoracicon 51-41-9473TRX echo transthoracicNormMercy Health St. Elizabeth Boardman Hospitale [facility] Health Physician GroupGlucose (Bld) [Mass/Vol]on 85-18-4860Jhxrnql Blood, QJJ921 mg/dLNOPA HealthcareLaboratory - Hematology and Cell countson 28-52-7316ExW1s (Bld) [Mass fraction]12.6 %[facility] HealthcareNo Panel Informationon 34-91-9647NAHE HealthcareHBV core IgM IA Qlon 62-10-1575HIWUDWSDV B CORE ANTIBODYNegativeNegativeNOPA HealthcareComment on above:Performed at: [facility] [address] [id number] [employer] Washer Hand: Jhoan Rich PhD, Phone: [phone] HBV surface Ab IA Qnon 76-91-6867KPVZTSHLQ B SURFACE ANTIBODYReactive.NOMS HealthcareComment on above:Non Reactive: Not immune to HBV infection. Equivocal: Unable to determine if anti-HBs is present at levels consistent with immunity. Reactive: Anti-HBs concentration detected at greater than 10 mIU/mL. Individual is considered to be immune to infection with HBV. HEPATITIS B SURFACE ANTIGEN ([facility])on 23-04-7484RATIZ SCREENNegativeNegativeNOMS HealthcareHcv antibody rfx to quant pcron 08-47-1616AXGYKQMQY C VIRUS ANTIBODY Non-ReactiveNon ReactiveNOMS HealthcareINTERPRETATION HEPATITIS CComment.NOMS HealthcareComment on above:Not infected with HCV unless early or acute infection is suspected (which may be delayed in an immunocompromised individual), or other evidence exists to indicate HCV infection. No Panel Informationon 13-87-6617OEPG HealthcareCBC W Auto Differential panel (Bld)on 24-12-7185Wmuspfjvx (Bld) [#/Vol]0 10*3/uL0.0 - 0.2 10*3/uLNOMS HealthcareBasophils/100 WBC Manual cnt (Syn fld)0.4 %.NOMS HealthcareEosinophils (Bld) [#/Vol]0.4 10*3/uL0.0 - 0.45 10*3/uLNOMS HealthcareEosinophils/100 WBC Manual cnt (Syn fld)3.4 %.NOM HealthcareErythrocyte distribution width (RBC) [Ratio]14.5 %11.9 - 15.3 %NOMS HealthcareHematocrit (Bld) [Volume fraction]40.8 %34.0 - 46.4 %NOM HealthcareHemoglobin (Bld) [Mass/Vol]13 g/dL11.8 - 15.4 g/dL NOM HealthcareInterpretation and review of laboratory resultsAbnormalNOPA HealthcareLymphocytes (Bld) [#/Vol]2.4 10*3/uL1.00 - 4.8 10*3/uLNOMS Healthcare Lymphocytes/100 WBC Manual cnt (Syn fld)23.7 %.[facility]edrick Medical CenterMCH (RBC) [Entitic mass]29 pg24.7 - 34.3 pgNevada Regional Medical CenterHC (RBC) [Mass/Vol]31.9 g/dLLow32.0 - 35.0 g/dLNevada Regional Medical CenterV (RBC) [Entitic vol]91 fL80 - 100 fLHedrick Medical Center Monocytes (Bld) [#/Vol]0.7 10*3/uL0.0 - 0.8 10*3/uLNOSt. Luke's Hospital Monocytes+Macrophages/100 WBC Manual cnt (Syn fld)6.3 %.[facility] Neutrophils (Bld) [#/Vol]6.8 10*3/uL1.8 - 7.7 10*3/uLHedrick Medical Center Neutrophils/100 WBC Manual cnt (Syn fld)66.2 %.[facility]rick Medical CenterNRBC0 /100{WBC}0 - 0.5 /100{WBC}[facility] HealthcarePlatelet mean volume (Bld) [Entitic vol]7.5 fL6.3 - 10.7 fLAMERICAN FORK HOSPITAL HealthcarePlatelets (Bld) [#/Vol]158 10*3/uL150 - 450 10*3/uLHedrick Medical CenterRBC LM.HPF (Urine sed) [#/Area]4.49 10*6/uL3.60 - 5.00 10*6/uLNOSt. Luke's HospitalWBC (Bld) [#/Vol]10.3 10*3/uL3.8 - 11.6 10*3/uLNOSt. Luke's HospitalWBC LM.HPF (Urine sed) [#/Area]10.3 [CFU]/mL3.8 - 11.6 [CFU]/mLNOMS [facility] HealthcareComplete Blood Count Auto Diffon 03-30-9635Nogsjfniy (Bld) [#/Vol]0.0 10*3/uLNormal0.0-0.2The [facility] Health Physician GroupComment on above:Result Comment: PERFORMED BY:[id number] [place], [place] [phone] MEDICAL DIRECTORELAINE CHAUDHARY M.D.Performed By: #### HBCAB, HBSAG, HCV RX PCR, HBSAB ####[facility] ,#### CMP, CBC ####[place] [address] [place] Basophils/100 WBC (Bld)0.4 %Normal.The [facility] Health Physician GroupComment on above:Performed By: #### HBCAB, HBSAG, HCV RX PCR, HBSAB ####[facility] ,#### CMP, CBC ####[place] [address] USAEosinophils (Bld) [#/Vol]0.4 10*3/uLNormal0.0-0.45 The [facility] Health Physician GroupComment on above:Performed By: #### HBCAB, HBSAG, HCV RX PCR, HBSAB ####[facility] ,#### CMP, CBC ####[place] [address] USAEosinophils/100 WBC (Bld)3.4 %Normal.The [facility] Health Physician GroupComment on above:Performed By: #### HBCAB, HBSAG, HCV RX PCR, HBSAB ####[facility] ,#### CMP, CBC ####[place] [address] USAErythrocyte distribution width (RBC) [Ratio]14.5 %Epqqti74.9-15.3The [facility] Health Physician GroupComment on above:Performed By: #### HBCAB, HBSAG, HCV RX PCR, HBSAB ####[facility] ,#### CMP, CBC ####[place] [address] USAHematocrit (Bld) [Volume fraction]40.8 %Normal 34.0-46.4The [facility] Health Physician GroupComment on above:Performed By: #### HBCAB, HBSAG, HCV RX PCR, HBSAB ####[facility] ,#### CMP, CBC ####[place] [address] USAHemoglobin (Bld) [Mass/Vol]13.0 g/eLDkewzm98.8-15.4The [facility] Health Physician GroupComment on above: Performed By: #### HBCAB, HBSAG, HCV RX PCR, HBSAB ####[facility] ,#### CMP, CBC ####[place] [address] USALymphocytes (Bld) [#/Vol]2.4 10*3/uLNormal1.00-4.8 The [facility] Health Physician GroupComment on above:Performed By: #### HBCAB, HBSAG, HCV RX PCR, HBSAB ####[facility] ,#### CMP, CBC ####[place] [address] USALymphocytes/100 WBC (Bld)23.7 %Normal.The [facility] Health Physician GroupComment on above:Performed By: #### HBCAB, HBSAG, HCV RX PCR, HBSAB ####[facility] ,#### CMP, CBC ####[address] (RBC) [Entitic mass]29.0 cpXzwhpb48.7-34.3The [facility] Health Physician GroupComment on above: Performed By: #### HBCAB, HBSAG, HCV RX PCR, HBSAB ####[facility] ,#### CMP, CBC ####[address] (RBC) [Entitic vol]91.0 [id number] [facility] Physician GroupComment on above:Performed By: #### HBCAB, HBSAG, HCV RX PCR, HBSAB ####[facility] ,#### CMP, CBC ####[place] [address] USAMean Corpuscular HGB Conc31.9 g/dLLow32.0-35.0The [facility] Physician GroupComment on above:Performed By: #### HBCAB, HBSAG, HCV RX PCR, HBSAB ####[facility] ,#### CMP, CBC ####[place] [address] [place] Monocytes (Bld) [#/Vol]0.7 10*3/uLNormal0.0-0.8[facility] Comment on above:Performed By: #### HBCAB, HBSAG, HCV RX PCR, HBSAB ####[facility] ,#### CMP, CBC ####[place] [id number] USAMonocytes/100 WBC (Bld)6.3 %Normal.The [facility] Physician GroupComment on above:Performed By: #### HBCAB, HBSAG, HCV RX PCR, HBSAB ####[facility] ,#### CMP, CBC ####[place] [address] USANeutrophils (Bld) [#/Vol]6.8 10*3/uL Normal1.8-7.7The [facility] Physician GroupComment on above:Performed By: #### HBCAB, HBSAG, HCV RX PCR, HBSAB ####[facility] ,#### CMP, CBC ####[place] [address] [place] Neutrophils/100 WBC (Bld)66.2 %Normal.The [facility] Physician GroupComment on above:Performed By: #### HBCAB, HBSAG, HCV RX PCR, HBSAB ####[facility] ,#### CMP, CBC ####[place] [address] USANRBC%0.0 /100{WBC}Normal0-0.5The [facility] Physician GroupComment on above:Performed By: #### HBCAB, HBSAG, HCV RX PCR, HBSAB ####[facility] ,#### CMP, CBC ####[address] [place] [address] USAPlatelet mean volume (Bld) [Entitic vol]7.5 fL Normal6.3-10.7The [facility] Physician GroupComment on above:Performed By: #### HBCAB, HBSAG, HCV RX PCR, HBSAB ####[facility] ,#### CMP, CBC ####[address] [address] [place] Platelets (Bld) [#/Vol]158 10*3/[id number] Group Comment on above:Performed By: #### HBCAB, HBSAG, HCV RX PCR, HBSAB ####[facility] ,#### CMP, CBC ####[address] [address] USARBC (Bld) [#/Vol]4.49 10*6/uLNormal3.60-5.00The [facility] Physician GroupComment on above:Performed By: #### HBCAB, HBSAG, HCV RX PCR, HBSAB ####[facility] ,#### CMP, CBC ####[place] [address] USAWBC (Bld) [#/Vol]10.3 10*3/uL Normal3.8-11.6The [facility] Physician GroupComment on above:Performed By: #### HBCAB, HBSAG, HCV RX PCR, HBSAB ####[facility] ,#### CMP, CBC ####[address] [address] USAWhite Blood Count10.3 [CFU]/mLNormal3.8-11.6The [facility] Physician GroupComment on above:Performed By: #### HBCAB, HBSAG, HCV RX PCR, HBSAB ####[facility] ,#### CMP, CBC ####[address] [address] USAComprehensive Metabolic Panelon 93-81-4423Jddcujw [Mass/Vol]3.5 g/dLNormal3.5-5.7The [facility] Physician GroupComment on above: Performed By: #### HBCAB, HBSAG, HCV RX PCR, HBSAB ####[facility] ,#### CMP, CBC ####[address] [address] USAAlbumin/Globulin [Mass ratio]1.1 {ratio}NormalThe [facility] Physician GroupComment on above:Performed By: #### HBCAB, HBSAG, HCV RX PCR, HBSAB ####[facility] ,#### CMP, CBC ####[place] [address] USAALP [Catalytic activity/Vol] 165 U/XMzlq99-116Ico [facility] Physician GroupComment on above:Performed By: #### HBCAB, HBSAG, HCV RX PCR, HBSAB ####[facility] ,#### CMP, CBC ####[place] [address] USAALT [Catalytic activity/Vol]49 U/LNormal7-52The [facility] Physician GroupComment on above:Performed By: #### HBCAB, HBSAG, HCV RX PCR, HBSAB ####[facility] ,#### CMP, CBC ####[place] [address] USAAnion gap [Moles/Vol]12.0 mmol/LNormal6.0-15.0The [facility] Physician GroupComment on above:Performed By: #### HBCAB, HBSAG, HCV RX PCR, HBSAB ####[facility] ,#### CMP, CBC ####[place] [address] USAAST [Catalytic activity/Vol]22 U/OQjdlxt11-40Vpm [facility] Physician GroupComment on above:Performed By: #### HBCAB, HBSAG, HCV RX PCR, HBSAB ####[facility] ,#### CMP, CBC ####[place] [address] [place] Bilirubin [Mass/Vol]0.3 mg/dLNormal0.3-1.0The [facility] Physician GroupComment on above:Performed By: #### HBCAB, HBSAG, HCV RX PCR, HBSAB ####[facility] ,#### CMP, CBC ####[place] [address] USACalcium [Mass/Vol]9.0 mg/dLNormal8.6-10.3The [facility] Physician GroupComment on above:Performed By: #### HBCAB, HBSAG, HCV RX PCR, HBSAB ####[facility] ,#### CMP, CBC ####[place] [address] USAChloride [Moles/Vol]93 mmol/L Ffy56-644Wji [facility] Physician GroupComment on above:Performed By: #### HBCAB, HBSAG, HCV RX PCR, HBSAB ####[facility] ,#### CMP, CBC ####[place] [address] USACO2 [Moles/Vol]35.5 mmol/LHigh21.0-31.0The [facility] Physician GroupComment on above:Performed By: #### HBCAB, HBSAG, HCV RX PCR, HBSAB ####[facility] ,#### CMP, CBC ####[place] [address] [place] Creatinine [Mass/Vol]1.38 mg/dLHigh0.60-1.20The [facility] Physician GroupComment on above:Performed By: #### HBCAB, HBSAG, HCV RX PCR, HBSAB ####[facility] ,#### CMP, CBC ####[place] [address] USACreatinine Clr Calc Tnbowasq04.57NormalThe [facility] Physician GroupComment on above:Result Comment: PERFORMED BY:[address] [place], [place] [phone] MEDICAL DIRECTORELAINE CHAUDHARY M.D.Performed By: #### HBCAB, HBSAG, HCV RX PCR, HBSAB ####[facility] ,#### CMP, CBC ####[address] [address] USAGFR/1.73 sq M.predicted MDRD (S/P/Bld) [Vol rate/Area]42.215 mL/min/{1.73_m2}NormalThe [facility] Physician GroupComment on above:Performed By: #### HBCAB, HBSAG, HCV RX PCR, HBSAB ####[facility] ,#### CMP, CBC ####[place] [address] USAGlobulin (S) [Mass/Vol]3.3 g/dLNoCentral Harnett Hospital Physician [facility] CenterComment on above:Performed By: #### HBCAB, HBSAG, HCV RX PCR, HBSAB ####[facility] ,#### CMP, CBC ####[place] [address] USAGlucose [Mass/Vol]551 mg/dLOff scale aire62-948Blh [facility]ician [facility] CenterComment on above:Result Comment: Critical Result [...] RX PCR, HBSAB ####[facility] ,#### CMP, CBC ####[place] [address] USAPotassium [Moles/Vol]3.5 mmol/LNormal3.5-5.1The [facility] Physician GroupComment on above:Performed By: #### HBCAB, HBSAG, HCV RX PCR, HBSAB ####[facility] ,#### CMP, CBC ####[place] [address] USAProtein [Mass/Vol]6.8 g/dL Normal6.4-8.9The [facility] Physician GroupComment on above:Performed By: #### HBCAB, HBSAG, HCV RX PCR, HBSAB ####[facility] ,#### CMP, CBC ####[place] [address] USASodium [Moles/Vol]137 mmol/CKnznts617-054Chd [facility] Physician GroupComment on above: Performed By: #### HBCAB, HBSAG, HCV RX PCR, HBSAB ####[facility] ,#### CMP, CBC ####[place] [address] USAUrea nitrogen [Mass/Vol]28 mg/dLHigh7-25The [facility] Physician GroupComment on above:Performed By: #### HBCAB, HBSAG, HCV RX PCR, HBSAB ####[facility] ,#### CMP, CBC ####[place] [address] USAComprehensive metabolic panel on 06-56-3632Wrjvhvo [Mass/Vol]3.5 g/dL3.5 - 5.7 g/dLNOPA Healthcare Albumin/Globulin [Mass ratio]1.1 {ratio}NOMS HealthcareALP [Catalytic [...] - 1.20 mg/dLNOMS Healthcare CREATININE CLR CALC QJOSDIDV75.57NOMS HealthcareGFR/1.73 sq M.predicted MDRD (S/P/Bld) [Vol rate/Area]42.215 mL/min/{1.73_m2}NOMS HealthcareGlobulin (S) [Mass/Vol]3.3 g/dLNOMS HealthcareGlucose [Mass/Vol]551 mg/dLCritically high70 - 100 mg/dLNOMS HealthcareComment on above:Critical Result Called to and read back by: ROXANE LEONE/DMITRY at: 11/10/2024 15:42:37 by:[id number] Random Glucose Reference Range is dependent on [...] - 25 mg/dLNOMS HealthcareNOMS HealthcareDaratumumab Molecular Genotypeon 90-28-5748Fndcoggomua Molecular GenotypeNoCentral Harnett Hospital Physician GroupComment on above:Result Comment: sent to [facility] on 11/10/24PERFORMED BY:[facility] [place], [place] [phone] MEDICAL DIRECTORELAINE CHAUDHARY M.D. Hep C Ab wRfx to Qnt PCRon 21-89-9645Qbgcsrphb C Virus AntibodyNon-Reactive NormalNon ReactiveThe [facility] Physician GroupComment on above:Performed By: #### HBCAB, HBSAG, HCV RX PCR, HBSAB ####[facility] ,#### CMP, CBC ####[place] [address] [place] Interpretation Hepatitis CCommentNormal.The [facility] Physician GroupComment on above:Result Comment: Not infected with HCV unless early or acute infection is suspected (which may be delayed in an immunocompromised individual), or other evidence exists to indicate HCV infection.Performed By: #### HBCAB, HBSAG, HCV RX PCR, HBSAB ####[facility] ,#### CMP, CBC ####[place] [address] USAHepatitis B Core Antibodyon 37-01-1242Bzhzyhsjv B Core AntibodyNegativeNormalNegativeThe [facility] Physician [facility] CenterComment on above:Result Comment: Performed at: - [place] [address] Pan Washer Hand: Jhoan Rich PhD, Phone: [phone] By: #### HBCAB, HBSAG, HCV RX PCR, HBSAB ####[facility] ,#### CMP, CBC ####[place] [address] USAHepatitis B Surface Antibodyon 52-80-2246Retfrmakf B Surface AntibodyReactiveNormal.The [facility] Physician GroupComment on above: Result Comment: Non Reactive: Not immune to HBV infection. Equivocal: Unable to determine if anti-HBs is present at levels consistent with immunity. Reactive: Anti-HBs concentration detected at greater than 10 mIU/mL. Individual is considered to be immune to infection with HBV.Performed By: #### HBCAB, HBSAG, HCV RX PCR, HBSAB ####[facility] ,#### CMP, CBC ####[place] [address] USAHepatitis B Surface Antigenon 73-47-1507WUuKi ScreenNegativeNormalNegativeKeralty Hospital Miami Physician [facility] Comment on above:Result Comment: PERFORMED BY:[address] [place], [place] [phone] MEDICAL DIRECTORELAINE CHAUDHARY M.D.Performed By: #### HBCAB, HBSAG, HCV RX PCR, HBSAB ####[facility] ,#### CMP, CBC ####[address] [address] USAHepatitis C virus IgG Ab [Presence] in Serum or Plasma by ImmunoassayOrdered By: Roxane Bills on 07-10-2737XAI IgG IA Ql Non-ReactiveNon ReactiveMadison HealthNo Panel Information Ordered By: Roxane Bills on 36-09-6753Yenfrqc.[facility] Serum hepatitis B virus surface antibody detectionOrdered By: Roxane Bills on 53-86-4230XMB surface Ab Ql (S)Reactive.TriHealtherum or plasma hepatitis B virus surface antigen detection by immunoassayOrdered By: Roxane Bills on 37-38-0963JQJ surface Ag IA QlNegativeNegativeMadison HealthType and Screenon 60-76-4470PFU and Rh group Nom (Bld)Blood group A Rh(D) positiveNormalThe [facility] Physician [facility] CenterComprehensive Metabolic Panel on 33-42-0246Tyzbaot [Mass/Vol]4.1 g/dLNormal3.5-5.7The [facility]ician [facility] Medical CenterComment on above:Performed By: #### URIC, CMP ####[address] [address] USAAlbumin/Globulin [Mass ratio] 1.1 {ratio}NormalThe [facility]ician [facility] Medical CenterComment on above:Performed By: #### URIC, CMP ####[address] [address] USAALP [Catalytic activity/Vol]149 U/VAehg91-460Eig [facility]ician [facility] CenterComment on above:Performed By: #### URIC, CMP ####[address] [address] USAALT [Catalytic activity/Vol]42 U/LNormal7-52The [facility] Physician GroupComment on above:Performed By: #### URIC, CMP ####[place] [address] USAAnion gap [Moles/Vol]12.6 mmol/LNormal6.0-15.0The [facility] Comment on above:Performed By: #### URIC, CMP ####[place] [address] USAAST [Catalytic activity/Vol]23 U/L Ybtfvx16-12Mmf [facility] Physician GroupComment on above:Performed By: #### URIC, CMP ####[place] [address] USABilirubin [Mass/Vol]0.3 mg/dLNormal0.3-1.0The [facility] Comment on above:Performed By: #### URIC, CMP ####[place] [address] USACalcium [Mass/Vol]9.0 mg/dLNormal 8.6-10.3The [facility] Physician GroupComment on above:Performed By: #### URIC, CMP ####[place] [address] [place] Chloride [Moles/Vol]98 mmol/VMwsucx40-788Dao [facility] Physician GroupComment on above:Performed By: #### URIC, CMP ####[place] [address] USACO2 [Moles/Vol]33.6 mmol/LHigh21.0-31.0The [facility] Physician GroupComment on above:Performed By: #### URIC, CMP ####[place] [address] [place] Creatinine [Mass/Vol]1.33 mg/dLHigh0.60-1.20The [facility] Physician GroupComment on above:Performed By: #### URIC, CMP ####[place] [address] USACreatinine Clr Calc Atezayay53.51NormalThAndalusia Healthlands Physician GroupComment on above:Performed By: #### URIC, CMP ####[place] [address] [place] GFR/1.73 sq M.predicted MDRD (S/P/Bld) [Vol rate/Area]44.401 mL/min/{1.73_m2} NormalThe [facility] Physician GroupComment on above:Performed By: #### URIC, CMP ####[place] [address] [place] Globulin (S) [Mass/Vol]3.6 g/dLNoCentral Harnett Hospital Physician GroupComment on above:Performed By: #### URIC, CMP ####[place] [address] USAGlucose [Mass/Vol]292 mg/vNRtxk72-879Rwh [facility] Physician GroupComment on above:Result Comment: Random Glucose Reference Range is dependent on time and content of last meal. Glucose of more than 200 mg/dL in a nonstressed, ambulatory subject supports the diagnosis of Diabetes Mellitus. ADA recommended reference rangePerformed By: #### URIC, CMP ####[place] [address] USAPotassium [Moles/Vol] 4.2 mmol/LNormal3.5-5.1The [facility] Physician GroupComment on above:Performed By: #### URIC, CMP ####[place] [address] USAProtein [Mass/Vol]7.7 g/dLNormal6.4-8.9The [facility] Comment on above:Performed By: #### URIC, CMP ####[place] [address] USASodium [Moles/Vol]140 mmol/LNormal 136-145The [facility] Physician GroupComment on above:Performed By: #### URIC, CMP ####[place] [address] [place] Urea nitrogen [Mass/Vol]33 mg/dLHigh7-25The [facility] Physician GroupComment on above:Performed By: #### URIC, CMP ####[facility] [address] [place] [address] [facility]CHOComprehensive metabolic panelon 60-47-3549Hyozsnl [Mass/Vol]4.1 g/dL3.5 - 5.7 g/dLNOMS HealthcareAlbumin/Globulin [Mass [...] mg/dLHigh0.60 - 1.20 mg/dLNOMS HealthcareCREATININE CLR CALC FFTQXRYU98.51[facility] GFR/1.73 sq M.predicted MDRD (S/P/Bld) [Vol rate/Area]44.401 mL/min/{1.73_m2} NOMS HealthcareGlobulin (S) [Mass/Vol]3.6 g/dLNOMS HealthcareGlucose [Mass/Vol] 292 mg/jNTafa25 - 100 mg/dLNOMS HealthcareComment on above:Random Glucose [...] mmol/LNOMS HealthcareUrea nitrogen [Mass/Vol]33 mg/dLHigh7 - 25 mg/dLAMERICAN FORK HOSPITAL HealthcareNo Panel Informationon 27-32-4430Qhmxdhejkbjnll and review of laboratory resultsAbnormalHedrick Medical CenterNOPA HealthcarePET NaF bone init (nopr) on 88-31-4089DKK NaF bone init (nopr)NormalThe [facility] Physician GroupUrate [Mass/volume] in Serum or PlasmaOrdered By: Roxane Bills on 02-08-6209Vqhke [Mass/Vol]6.7 mg/dLHigh2.3-6.6FClermont County HospitalComment on above: Result Comment: PERFORMED BY:[place] [address] [place], [place] [phone] MEDICAL LEESA CHAUDHARY M.D.Performed By: #### URIC, CMP ####[place] [address] [place] [address] USAUric acidon 34-61-5082Xuzqm [Mass/Vol]6.7 mg/dLHigh 2.3 - 6.6 mg/dLHedrick Medical CenterPATHOLOGY REQUEST FOR LAB CORPon 09-22-2024 PATHOLOGY REQUEST FOR LAB CORPHedrick Medical CenterComment on above:See report. Scanned copy available in EMR.NOMS HealthcareBasophils [#/volume] in Blood by Automated countOrdered By: Roxane Bills on 93-44-5927Kxjmydxgj (Bld) [#/Vol]0.1 10*3/uLNormal0.0-0.2FClermont County HospitalComment on above:Order Comment: STAT FOR BXResult Comment: PERFORMED BY:[place] [address] [place], [place] [phone] MEDICAL LEESA CHAUDHARY M.D.Performed By: #### PP, CBC ####[facility] [address] [place] [address] USABasophils/100 leukocytes in Blood by Automated countOrdered By: Roxane Bills on 27-49-4063Oqghvrhjl/100 WBC (Bld)0.6 %Normal.Madison HealthComment on above:Order Comment: STAT FOR BXPerformed By: #### PP, CBC ####[facility] [address] [place] [address] [facility] Auto Differential panel (Bld)on 14-45-7934Ebwrpuzjc (Bld) [#/Vol]0.1 10*3/uL0.0 - 0.2 10*3/uLNOMS Healthcare Basophils/100 WBC Manual cnt (Syn fld)0.6 %.NOM HealthcareEosinophils (Bld) [#/Vol]0.4 10*3/uL0.0 - 0.45 10*3/uLNOMS HealthcareEosinophils/100 WBC Manual cnt (Syn fld)3.8 %.Hedrick Medical CenterErythrocyte distribution width (RBC) [Ratio] 15.5 %High11.9 - 15.3 %[facility] HealthcareHematocrit (Bld) [Volume fraction]40.6 % 34.0 - 46.4 %Hedrick Medical CenterHemoglobin (Bld) [Mass/Vol]13 g/dL11.8 - 15.4 g/dL Hed[facility] Medical CenterInterpretation and review of laboratory resultsAbnormalHedrick Medical CenterLymphocytes (Bld) [#/Vol]3.2 10*3/uL1.00 - 4.8 10*3/uLNOMS Healthcare Lymphocytes/100 WBC Manual cnt (Syn fld)28.8 %.[facility] CenterH (RBC) [Entitic mass]28.4 pg24.7 - 34.3 pgNevada Regional Medical CenterHC (RBC) [Mass/Vol]32 g/dL32.0 - 35.0 g/dLNevada Regional Medical CenterV (RBC) [Entitic vol]88.9 fL80 - 100 fLAMERICAN FORK HOSPITAL Healthcare Monocytes (Bld) [#/Vol]0.7 10*3/uL0.0 - 0.8 10*3/uLNOMS Healthcare Monocytes+Macrophages/100 WBC Manual cnt (Syn fld)6.4 %.[facility] Neutrophils (Bld) [#/Vol]6.8 10*3/uL1.8 - 7.7 10*3/uLNOMS [...] [#/Area]11.3 10*3/uL3.8 - 11.6 10*3/uLNOMS HealthcareSTAT FOR BXPremier Health Miami Valley HospitalCOAGULATION PROFILEon 24-91-8700iZHK Coag (Bld) [Time]29.9 s25.1 - 36.5 [facility] HealthcareComment on above:A hematocrit value greater than 55% may lead to inaccurate results in coagulation testing. Patients having hematocrit values >55% require a special collection tube for coagulation studies. Please contact the laboratory at [phone] for redraw instructions. INR Coag (PPP) [Relative time]1 {INR}[facility] HealthcareComment on above:INR Therapeutic Range A) Pre- [...] PT Coag (PPP) [Time]11.8 s9.0 - 12.9 [facility] HealthcareComment on above:A hematocrit value greater than 55% may lead to inaccurate results in coagulation testing. Patients having hematocrit values >55% require a special collection tube for coagulation studies. Please contact the laboratory at [phone] for redraw instructions. STAT FOR BXPremier Health Miami Valley HospitalCT guided bone marrow bx/aspiron 64-72-0063DR guided bone marrow bx/aspirNoCentral Harnett Hospital Physician GroupCoagulation Profileon 42-10-9734hMMZ Coag (Bld) [Time]29.9 hOlhqjy27.1-36.5The [facility]ician [facility] CenterComment on above:Order Comment: STAT FOR BXResult Comment: A hematocrit value greater than 55% may lead to inaccurate results in coagulation testing. Patients having hematocrit values >55% require a special collection tube for coagulation studies. Please contact the laboratory at [phone] for redraw instructions.PERFORMED BY:[address] [place], [place] [phone] MEDICAL DIRECTORELAINE CHAUDHARY M.D.Performed By: #### PP, CBC ####[address] [address] USAComplete Blood Count Auto Diffon 88-74-9119Yrzp Corpuscular HGB Conc32.0 g/aYUffmmp36.0-35.0The [facility] CenterComment on above:Order Comment: STAT FOR BXPerformed By: #### PP, CBC ####[address] [address] USANRBC%0.1 /100{WBC} Normal0-0.5The [facility] Medical CenterComment on above:Order Comment: STAT FOR BXPerformed By: #### PP, CBC ####[address] [address] USAComprehensive Metabolic Panelon 04-13-0168Uunjvlf [Mass/Vol]3.7 g/dLNormal3.5-5.7The [facility] Medical CenterComment on above: Performed By: #### CMP, URIC ####[address] [address] USAAlbumin/Globulin [Mass ratio]0.9 {ratio}NormalThe [facility]ician [facility] CenterComment on above:Performed By: #### CMP, URIC ####[address] [address] USAALP [Catalytic activity/Vol]147 U/MRexv19-941Mic [facility] Physician GroupComment on above:Performed By: #### CMP, URIC ####[place] [address] [place] [address] USAALT [Catalytic activity/Vol]34 U/LNormal7-52The [facility] Physician GroupComment on above:Performed By: #### CMP, URIC ####[address] [address] USAAnion gap [Moles/Vol]12.2 mmol/LNormal6.0-15.0The [facility] Physician GroupComment on above:Performed By: #### CMP, URIC ####[address] [address] USAAST [Catalytic activity/Vol]27 U/JQjhctm45-57Xfx [facility] Physician GroupComment on above:Performed By: #### CMP, URIC ####[address] [address] [place] Bilirubin [Mass/Vol]0.3 mg/dLNormal0.3-1.0The [facility] Physician GroupComment on above:Performed By: #### CMP, URIC ####[address] [address] USACalcium [Mass/Vol]9.2 mg/dLNormal8.6-10.3The [facility] Physician GroupComment on above:Performed By: #### CMP, URIC ####[address] [address] [place] Chloride [Moles/Vol]98 mmol/LTyxofo46-119Wpm [facility] Physician GroupComment on above:Performed By: #### CMP, URIC ####[address] [address] USACO2 [Moles/Vol]34.2 mmol/LHigh21.0-31.0The [facility] Physician GroupComment on above:Performed By: #### CMP, URIC ####[address] [address] [place] Creatinine [Mass/Vol]1.36 mg/dLHigh0.60-1.20The [facility] Physician GroupComment on above:Performed By: #### CMP, URIC ####[place] [address] [place] [address] USACreatinine Clr Calc Znofeqkw33.49NoCentral Harnett Hospital Physician GroupComment on above:Performed By: #### CMP, URIC ####[place] [address] [place] Estimated GFR43.228 mL/MinNoCentral Harnett Hospital Physician GroupComment on above: Performed By: #### CMP, URIC ####[place] [address] USAGlobulin (S) [Mass/Vol]3.9 g/dLAdventHealth Heart of Florida Physician GroupComment on above:Performed By: #### CMP, URIC ####[place] [address] USAGlucose [Mass/Vol]252 mg/wEOwyw73-919Rxq [facility] Physician GroupComment on above:Result Comment: Random Glucose Reference Range is dependent on time and content of last meal. Glucose of more than 200 mg/dL in a nonstressed, ambulatory subject supports the diagnosis of Diabetes Mellitus. ADA recommended reference rangePerformed By: #### CMP, URIC ####[place] [address] USAPotassium [Moles/Vol]4.4 mmol/LNormal3.5-5.1The [facility] Physician GroupComment on above:Performed By: #### CMP, URIC ####[place] [address] USAProtein [Mass/Vol]7.6 g/dL Normal6.4-8.9The [facility] Physician GroupComment on above:Performed By: #### CMP, URIC ####[place] [address] USASodium [Moles/Vol]140 mmol/WOrogfc709-073Ljw [facility] Physician GroupComment on above:Performed By: #### CMP, URIC ####[place] [address] USAUrea nitrogen [Mass/Vol]21 mg/dLNormal7-25The [facility] Physician GroupComment on above:Performed By: #### CMP, URIC ####[facility] [address] [place] [id number] [facility] Comprehensive metabolic panelon 72-60-3826Rflcupg [Mass/Vol]3.7 g/dL3.5 - 5.7 g/dLNOMS HealthcareAlbumin/Globulin [Mass [...] mg/dLHigh0.60 - 1.20 mg/dLNOMS HealthcareCREATININE CLR CALC AYVJBWDI00.49NOMS HealthcareGFR/1.73 sq M.predicted MDRD (S/P/Bld) [Vol rate/Area]43.228 mL/min/{1.73_m2}mL/MinNOMS HealthcareGlobulin (S) [Mass/Vol]3.9 g/dLNOMS HealthcareGlucose [Mass/Vol]252 mg/dVGagl98 - 100 mg/dLNOPA HealthcareComment on above:Random Glucose Reference Range is [...] Roxane Bills on 09-19-2024 Eosinophils (Bld) [#/Vol]0.4 10*3/uLNormal0.0-0.45Mad[facility] HealthComment on above:Order Comment: STAT FOR BXPerformed By: #### PP, CBC ####[address] Eosinophils/100 leukocytes in Blood by Automated countOrdered By: Roxane Bills on 48-80-8218Tcljbyqfeos/100 WBC (Bld)3.8 %Normal.[facility] Comment on above:Order Comment: STAT FOR BXPerformed By: #### PP, CBC ####[address] Erythrocyte distribution width [Ratio] by Automated countOrdered By: Roxane Bills on 82-18-8936Bgloujslblw distribution width (RBC) [Ratio]15.5 %High11.9-15.3 [facility] HealthComment on above:Order Comment: STAT FOR BX Performed By: #### PP, CBC ####[place] [address] USAErythrocytes [#/volume] in Blood by Automated count Ordered By: Roxane Bills on 84-85-2010RQO (Bld) [#/Vol]4.56 10*6/uLNormal3.60-5.00 [facility] HealthComment on above:Order Comment: STAT FOR BX Performed By: #### PP, CBC ####[place] [address] USAHematocrit [Volume Fraction] of Blood by Automated countOrdered By: Roxane Bills on 73-36-8727Avmgvhpofm (Bld) [Volume fraction]40.6 % Uzcckc28.0-46.4FClermont County HospitalComment on above:Order Comment: STAT FOR BXPerformed By: #### PP, CBC ####[address] [address] USAHemoglobin [Mass/volume] in BloodOrdered By: Roxane Bills on 49-33-7437Uqnirnvuwm (Bld) [Mass/Vol]13.0 g/kDCqtfhx69.8-15.4 [facility] HealthComment on above:Order Comment: STAT FOR BX Performed By: #### PP, CBC ####[address] [address] USAINR in Platelet poor plasma by Coagulation assay Ordered By: Roxane Bills on 26-20-0781QMA Coag (PPP) [Relative time]1.0 {INR}Normal Madison HealthComment on above:INR Therapeutic Range A) Pre- [...] 3 - 4.5Performed By: #### PP, CBC ####[address] [address] USALeukocytes [#/volume] corrected for nucleated erythrocytes in Blood by Automated counOrdered By: Roxane Bills on 51-08-7394MAL corrected for nucl RBC Auto (Bld) [#/Vol]11.3 10*3/uL3.8-11.6FClermont County HospitalLeukocytes [#/volume] in Blood by Automated countOrdered By: Roxane Bills on 29-29-7006IFX (Bld) [#/Vol]11.3 10*3/uLNormal3.8-11.6FClermont County HospitalComment on above:Order Comment: STAT FOR BXPerformed By: #### PP, CBC ####[place] [address] [facility] Lymphocytes [#/volume] in Blood by Automated countOrdered By: Roxane Bills on 15-86-8334Ycevpdeorke (Bld) [#/Vol]3.2 10*3/uLNormal1.00-4.8Madison HealthComment on above:Order Comment: STAT FOR BXPerformed By: #### PP, CBC ####[place] [address] [facility] Lymphocytes/100 leukocytes in Blood by Automated countOrdered By: Roxane Bills on 09-96-0896Uvitpuotvsf/100 WBC (Bld)28.8 %Normal.Madison HealthComment on above:Order Comment: STAT FOR BXPerformed By: #### PP, CBC ####[address] [address] [facility] [Entitic mass] by Automated countOrdered By: Roxane Bills on 33-33-8413QVB (RBC) [Entitic mass]28.4 wgXkimwr86.7-34.3FClermont County HospitalComment on above:Order Comment: STAT FOR BXPerformed By: #### PP, CBC ####[address] [address] [facility] Auto (RBC) [Mass/Vol]Ordered By: Roxane Bills on 83-06-0051IAHE (RBC) [Mass/Vol]32.0 g/dL 32.0-35.0[facility] HospitalV [Entitic volume] by Automated countOrdered By: Roxane Bills on 14-60-7495RJC (RBC) [Entitic vol]88.9 fLNormal 80-100Madison HealthComment on above:Order Comment: STAT FOR BXPerformed By: #### PP, CBC ####[address] [address] USAMonocytes [#/volume] in Blood by Automated count Ordered By: Roxane Bills on 91-65-2173Itdmlmyho (Bld) [#/Vol]0.7 10*3/uLNormal 0.0-0.8Madison HealthComment on above:Order Comment: STAT FOR BXPerformed By: #### PP, CBC ####[place] [id number] USAMonocytes/100 leukocytes in Blood by Automated count Ordered By: Roxane Bills on 56-87-9319Xindiftlm/100 WBC (Bld)6.4 %Normal.Madison HealthComment on above:Order Comment: STAT FOR BXPerformed By: #### PP, CBC ####[place] [address] USANeutrophils [#/volume] in Blood by Automated countOrdered By: Roxane Bills on 22-61-2635Plvdsyvtqew (Bld) [#/Vol]6.8 10*3/uLNormal1.8-7.7FClermont County HospitalComment on above:Order Comment: STAT FOR BXPerformed By: #### PP, CBC ####[place] [address] USANeutrophils/100 leukocytes in Blood by Automated countOrdered By: Roxane Bills on 24-39-4932Jhhvfvggwqg/100 WBC (Bld)60.4 %Normal.Madison HealthComment on above:Order Comment: STAT FOR BXPerformed By: #### PP, CBC ####[place] [address] USANo Panel InformationOrdered By: Roxane Bills on 70-75-1244Tnrtjhrltwajj Pathology Test See commentMadison HealthComment on above:See report. Scanned copy available in EMR.See commentMadison HealthNo Panel Informationon 17-05-6749UPIY HealthcareNucleated erythrocytes [Presence] in Blood by Automated countOrdered By: Roxane Bills on 56-83-9548Majlrmhjk RBC Auto Ql (Bld)0.1 /100{WBC}0-0.5FClermont County HospitalPathology Request for Lab Corpon 46-09-9148Ejgwhouda Request for Lab CorpNormCleveland Clinic Martin South Hospital Physician GroupComment on above:Result Comment: See report. Scanned copy available in EMR.PERFORMED BY:[address] [place], [place] [id number] MEDICAL DIRECTORELAINE CHAUDHARY M.D.Performed By: #### PATH TO [facility] ####[address] [address] USAPlatelet mean volume [Entitic volume] in Blood by Automated countOrdered By: Roxane Bills on 50-48-3164Knxhjvkc mean volume (Bld) [Entitic vol]6.9 fLNormal6.3-10.7FClermont County HospitalComment on above:Order Comment: STAT FOR BXPerformed By: #### PP, CBC ####[address] [address] USAPlatelets [#/volume] in Blood by Automated countOrdered By: Roxane Bills on 42-80-5019Dbwrzzmim (Bld) [#/Vol]227 10*3/tNNsxelb647-237KeuvcepnpMadison HealthComment on above:Order Comment: STAT FOR BXPerformed By: #### PP, CBC ####[address] [address] USAProthrombin time (PT) Ordered By: Roxane Bills on 26-64-7625GM Coag (PPP) [Time]11.8 sNormal9.0-12.9 Madison HealthComment on above:A hematocrit value greater than 55% may lead to inaccurate results in coagulation testing. Patientshaving hematocrit values >55% require a special collection tube for coagulation studies. Please contact the laboratory at [phone] for redraw instructions. Order Comment: STAT FOR BXResult Comment: A hematocrit value greater than 55% may lead to inaccurate results in coagulation testing. Patients having hematocrit values >55% require a special collection tube for coagulation s tudies. Please contact the laboratory at [phone] for redraw instructions. Performed By: #### PP, CBC ####[facility] [address] [place] [address] USAUric Acidon 42-12-3823Qlrwa [Mass/Vol]6.5 mg/dL Normal2.3-6.6The [facility] Health Physician GroupComment on above:Result Comment: PERFORMED BY:[facility] AL[place]IAJoseJaneFR[place], [place] [phone] MEDICAL DIRECTORELAINE CHAUDHARY M.D.Performed By: #### CMP, URIC ####[facility] [address] [place] [address] USAUric acidon 35-79-2944Ukuxp [Mass/Vol]6.5 mg/dL2.3 - 6.6 mg/dLNOMS HealthcareaPTT in Platelet poor plasma by Coagulation assayOrdered By: Roxane Bills on 54-66-3532dXAK Coag (PPP) [Time]29.9 s25.1-36.5FClermont County HospitalComment on above:A hematocrit value greater than 55% may lead to inaccurate results in coagulation testing. Patientshaving hematocrit values >55% require a special collection tube for coagulation studies. Please contact the laboratory at [phone] for redraw instructions.CBC W Auto Differential panel (Bld)on 75-63-4837Mxfctusoo (Bld) [#/Vol]0.2 10*3/uL0.0 - 0.2 10*3/uLNOMS HealthcareBasophils/100 WBC Manual cnt (Syn fld)1.5 %.NOMS HealthcareEosinophils (Bld) [#/Vol]0.6 10*3/uLHigh0.0 - 0.45 10*3/uLNOMS HealthcareEosinophils/100 WBC Manual cnt (Syn fld)4.5 %.NOMS HealthcareErythrocyte distribution width (RBC) [Ratio]15.3 %11.9 - 15.3 %NOMS HealthcareHematocrit (Bld) [Volume fraction]41.6 %34.0 - 46.4 %NOMS HealthcareHemoglobin (Bld) [Mass/Vol]13.1 g/dL 11.8 - 15.4 g/dLNOMS HealthcareInterpretation and review of laboratory results AbnormalAMERICAN FORK HOSPITAL HealthcareLymphocytes (Bld) [#/Vol]3.8 10*3/uL1.00 - 4.8 10*3/uL [facility] CenterLymphocytes/100 WBC Manual cnt (Syn fld)28.7 %.[facility] CenterH (RBC) [Entitic mass]27.8 pg24.7 - 34.3 pgNevada Regional Medical CenterHC (RBC) [Mass/Vol] 31.5 g/dLLow32.0 - 35.0 g/dLNevada Regional Medical CenterV (RBC) [Entitic vol]88.3 fL80 - 100 fLAMERICAN FORK HOSPITAL HealthcareMonocytes (Bld) [#/Vol]1.1 10*3/uLHigh0.0 - 0.8 10*3/uLHedrick Medical CenterMonocytes+Macrophages/100 WBC Manual cnt (Syn fld)8 %.[facility] Neutrophils (Bld) [#/Vol]7.7 10*3/uL1.8 - 7.7 10*3/uLAMERICAN FORK HOSPITAL Healthcare Neutrophils/100 WBC Manual cnt (Syn fld)57.3 %.[facility] Medical CenterNRBC0 /100{WBC}0 - 0.5 /100{WBC}[facility] Medical CenterPlatelet mean volume (Bld) [Entitic vol]7.4 fL6.3 - 10.7 fLAMERICAN FORK HOSPITAL HealthcarePlatelets (Bld) [#/Vol]252 10*3/uL150 - 450 10*3/uLHedrick Medical CenterRBC LM.HPF (Urine sed) [#/Area]4.72 10*6/uL3.60 - 5.00 10*6/uLNOSt. Luke's HospitalWBC (Bld) [#/Vol]13.4 10*3/uLHigh3.8 - 11.6 10*3/uLNOSt. Luke's HospitalWBC LM.HPF (Urine sed) [#/Area]13.4 10*3/uLHigh3.8 - 11.6 10*3/uLPhelps Health HealthcareComplete Blood Count Auto Diffon 55-71-1125Ruasqbkcw (Bld) [#/Vol]0.2 10*3/uLNormal0.0-0.2[facility] Physician GroupComment on above:Result Comment: PERFORMED BY:[address] [place], [place] [phone] MEDICAL DIRECTORRONI BERRY M.D. Performed By: #### FE and TIBC, CLEOPATRA, CBC, LDH, CMP ####[address]#### KAPPA, MITCH SERUM, SPE ####[facility] ,Basophils/100 WBC (Bld)1.5 %Normal.The [facility] Health Physician GroupComment on above:Performed By: #### FE and TIBC, CLEOPATRA, CBC, LDH, CMP ####[address]#### KAPPA, MITCH SERUM, SPE ####[facility] ,Eosinophils (Bld) [#/Vol]0.6 10*3/uLHigh0.0-0.45The [facility] Health Physician GroupComment on above: Performed By: #### FE and TIBC, CLEOPATRA, CBC, LDH, CMP ####[address]#### KAPPA, MITCH SERUM, SPE ####[facility] ,Eosinophils/100 WBC (Bld)4.5 %Normal.The [facility] Health Physician GroupComment on above:Performed By: #### FE and TIBC, CLEOPATRA, CBC, LDH, CMP ####[address]#### KAPPA, MITCH SERUM, SPE ####[facility] ,Erythrocyte distribution width (RBC) [Ratio]15.3 %Kpmorg19.9-15.3The [facility] Health Physician GroupComment on above:Performed By: #### FE and TIBC, CLEOPATRA, CBC, LDH, CMP ####[address]#### KAPPA, MITCH SERUM, SPE ####[facility] ,Hematocrit (Bld) [Volume fraction]41.6 %Normal 34.0-46.4The [facility] Health Physician GroupComment on above:Performed By: #### FE and TIBC, CLEOPATRA, CBC, LDH, CMP ####[address]#### KAPPA, MITCH SERUM, SPE ####[facility] , Hemoglobin (Bld) [Mass/Vol]13.1 g/pCSdxwac57.8-15.4The [facility] Comment on above:Performed By: #### FE and TIBC, CLEOPATRA, CBC, LDH, CMP ####[address]#### KAPPA, MITCH SERUM, SPE ####[facility] ,Lymphocytes (Bld) [#/Vol]3.8 10*3/uLNormal1.00-4.8The [facility] Health Physician GroupComment on above:Performed By: #### FE and TIBC, CLEOPATRA, CBC, LDH, CMP ####[address]#### KAPPA, MITCH SERUM, SPE ####[facility] ,Lymphocytes/100 WBC (Bld)28.7 %Normal.The [facility] Health Physician GroupComment on above:Performed By: #### FE and TIBC, CLEOPATRA, CBC, LDH, CMP ####[address]#### KAPPA, MITCH SERUM, SPE ####[facility] ,MCH (RBC) [Entitic mass]27.8 pg Aylrwq18.7-34.3The [facility] Health Physician GroupComment on above:Performed By: #### FE and TIBC, CLEOPATRA, CBC, LDH, CMP ####[address]#### KAPPA, MITCH SERUM, SPE ####[facility] ,MCV (RBC) [Entitic vol]88.3 lLItuire03-726Ala [facility] Physician GroupComment on above:Performed By: #### FE and TIBC, CLEOPATRA, CBC, LDH, CMP ####[address]#### KAPPA, MITCH SERUM, SPE ####[facility] ,Mean Corpuscular HGB Conc31.5 g/dLLow32.0-35.0The [facility] Health Physician GroupComment on above:Performed By: #### FE and TIBC, CLEOPATRA, CBC, LDH, CMP ####[address]#### KAPPA, MITCH SERUM, SPE ####[facility] ,Monocytes (Bld) [#/Vol]1.1 10*3/uLHigh0.0-0.8The [facility] Physician GroupComment on above:Performed By: #### FE and TIBC, CLEOPATRA, CBC, LDH, CMP ####[address]#### KAPPA, MITCH SERUM, SPE ####[facility] ,Monocytes/100 WBC (Bld) 8.0 %Normal.The [facility] Physician GroupComment on above:Performed By: #### FE and TIBC, CLEOPATRA, CBC, LDH, CMP ####[address]#### KAPPA, MITCH SERUM, SPE ####[facility] , Neutrophils (Bld) [#/Vol]7.7 10*3/uLNormal1.8-7.7The [facility] Comment on above:Performed By: #### FE and TIBC, CLEOPATRA, CBC, LDH, CMP ####[address]#### KAPPA, MITCH SERUM, SPE ####[facility] ,Neutrophils/100 WBC (Bld)57.3 % Normal.The [facility] Health Physician GroupComment on above:Performed By: #### FE and TIBC, CLEOPATRA, CBC, LDH, CMP ####[address]#### KAPPA, MITCH SERUM, SPE ####[facility] , NRBC%0.0 /100{WBC}Normal0-0.5The [facility] Health Physician GroupComment on above: Performed By: #### FE and TIBC, CLEOPATRA, CBC, LDH, CMP ####[address]#### KAPPA, MITCH SERUM, SPE ####[facility] ,Platelet mean volume (Bld) [Entitic vol]7.4 fLNormal 6.3-10.7The [facility] Physician GroupComment on above:Performed By: #### FE and TIBC, CLEOPATRA, CBC, LDH, CMP ####[address]#### KAPPA, MITCH SERUM, SPE ####[facility] , Platelets (Bld) [#/Vol]252 10*3/wELekxqu373-224Gdq [facility] Comment on above:Performed By: #### FE and TIBC, CLEOPATRA, CBC, LDH, CMP ####[address]#### KAPPA, MITCH SERUM, SPE ####[facility] ,RBC (Bld) [#/Vol]4.72 10*6/uL Normal3.60-5.00The [facility] Health Physician GroupComment on above:Performed By: #### FE and TIBC, CLEOPATRA, CBC, LDH, CMP ####[place] [address] [place]#### KAPPA, MITCH SERUM, SPE ####[facility] ,WBC (Bld) [#/Vol]13.4 10*3/uLHigh3.8-11.6The [facility] Physician GroupComment on above:Performed By: #### FE and TIBC, CLEOPATRA, CBC, LDH, CMP ####[address]#### KAPPA, MITCH SERUM, SPE ####[facility] ,Comprehensive Metabolic Panelon 79-82-6825Vdcnujc [Mass/Vol]4.0 g/dLNormal3.5-5.7The [facility] Comment on above:Performed By: #### FE and TIBC, CLEOPATRA, CBC, LDH, CMP ####[address]#### KAPPA, MITCH SERUM, SPE ####[facility] ,Albumin/Globulin [Mass ratio]1.1 {ratio}NormalThe [facility] Health Physician GroupComment on above:Performed By: #### FE and TIBC, CLEOPATRA, CBC, LDH, CMP ####[address]#### KAPPA, MITCH SERUM, SPE ####[facility] ,ALP [Catalytic activity/Vol]140 U/RLvjp58-650Mva [facility] Physician GroupComment on above:Performed By: #### FE and TIBC, CLEOPATRA, CBC, LDH, CMP ####[address]#### KAPPA, MITCH SERUM, SPE ####[facility] ,ALT [Catalytic activity/Vol]37 U/LNormal7-52The [facility] Health Physician GroupComment on above:Performed By: #### FE and TIBC, CLEOPATRA, CBC, LDH, CMP ####[place] [address] [place]#### KAPPA, MITCH SERUM, SPE ####[facility] ,Anion gap [Moles/Vol]12.1 mmol/LNormal6.0-15.0The [facility] Physician GroupComment on above:Performed By: #### FE and TIBC, CLEOPATRA, CBC, LDH, CMP ####[address]#### KAPPA, MITCH SERUM, SPE ####[facility] ,AST [Catalytic activity/Vol]30 U/JGhlvwi98-98Zqk [facility] Physician GroupComment on above:Performed By: #### FE and TIBC, CLEOPATRA, CBC, LDH, CMP ####[place] [address] [place]#### KAPPA, MITCH SERUM, SPE ####[facility] ,Bilirubin [Mass/Vol]0.3 mg/dLNormal0.3-1.0The [facility] Physician GroupComment on above: Performed By: #### FE and TIBC, CLEOPATRA, CBC, LDH, CMP ####[address]#### KAPPA, MITCH SERUM, SPE ####[facility] ,Calcium [Mass/Vol]9.5 mg/dLNormal8.6-10.3The [facility] Physician GroupComment on above:Performed By: #### FE and TIBC, CLEOPATRA, CBC, LDH, CMP ####[place] [address] [place]#### KAPPA, MITCH SERUM, SPE ####[facility] ,Chloride [Moles/Vol]99 mmol/JFzkqed08-172Uyn [facility] Physician GroupComment on above:Performed By: #### FE and TIBC, CLEOPATRA, CBC, LDH, CMP ####[place] [address] [place]#### KAPPA, MITCH SERUM, SPE ####[facility] ,CO2 [Moles/Vol]34.8 mmol/LHigh21.0-31.0The [facility] Physician GroupComment on above:Performed By: #### FE and TIBC, CLEOPATRA, CBC, LDH, CMP ####[place] [address] [place]#### KAPPA, MITCH SERUM, SPE ####[facility] ,Creatinine [Mass/Vol]1.43 mg/dL High0.60-1.20The [facility] Physician GroupComment on above:Performed By: #### FE and TIBC, CLEOPATRA, CBC, LDH, CMP ####[place] [address] [place]#### KAPPA, MITCH SERUM, SPE ####[facility] , Creatinine Clr Calc Mkxzymxg31.28NoCentral Harnett Hospital Physician GroupComment on above:Performed By: #### FE and TIBC, CLEOPATRA, CBC, LDH, CMP ####[address]#### KAPPA, MITCH SERUM, SPE ####[facility] ,Estimated GFR40.702 mL/MinNoCentral Harnett Hospital Physician [facility] Medical CenterComment on above:Performed By: #### FE and TIBC, CLEOPATRA, CBC, LDH, CMP ####[address]#### KAPPA, MITCH SERUM, SPE ####[facility] ,Globulin (S) [Mass/Vol] 3.6 g/dLAdventHealth Heart of Florida Physician [facility] Va Medical CenterComment on above:Performed By: #### FE and TIBC, CLEOPATRA, CBC, LDH, CMP ####[place] [address] [place]#### KAPPA, MITCH SERUM, SPE ####[facility] ,Glucose [Mass/Vol]61 mg/vSHym90-285Lpn [facility] Comment on above:Result Comment: Random Glucose Reference Range is dependent on time and content of last meal. Glucose of more than 200 mg/dL in a nonstressed, ambulatory subject supports the diagnosis of Diabetes Mellitus. ADA recommended reference rangePerformed By: #### FE and TIBC, CLEOPATRA, CBC, LDH, CMP ####[place] [address] [place]#### KAPPA, MITCH SERUM, SPE ####[facility] ,Potassium [Moles/Vol]3.9 mmol/LNormal 3.5-5.1The [facility] Physician GroupComment on above:Performed By: #### FE and TIBC, CLEOPATRA, CBC, LDH, CMP ####[address]#### KAPPA, MITCH SERUM, SPE ####[facility] , Protein [Mass/Vol]7.6 g/dLNormal6.4-8.9The [facility] Physician GroupComment on above:Performed By: #### FE and TIBC, CLEOPATRA, CBC, LDH, CMP ####[address]#### KAPPA, MITCH SERUM, SPE ####[facility] ,Sodium [Moles/Vol]142 mmol/JZrbpxk308-561Agm [facility] Physician GroupComment on above:Performed By: #### FE and TIBC, CLEOPATRA, CBC, LDH, CMP ####[address]#### KAPPA, MITCH SERUM, SPE ####[facility] ,Urea nitrogen [Mass/Vol] 33 mg/dLHigh7-25The [facility] Physician GroupComment on above:Performed By: #### FE and TIBC, CLEOPATRA, CBC, LDH, CMP ####[address]#### KAPPA, MITCH SERUM, SPE ####[facility] ,Ferritin [Mass/volume] in Serum or PlasmaOrdered By: Roxane Bills on 15-96-2664Mfwqcptq [Mass/Vol]101.2 ng/oKOpoxui87.0-306.8Madison HealthComment on above:Result Comment: PERFORMED BY:[address] [place], [place] [phone] MEDICAL DIRECTORRONI BERRY M.D.Performed By: #### FE and TIBC, CLEOPATRA, CBC, LDH, CMP ####[address]#### KAPPA, MITCH SERUM, SPE ####[facility] ,Free K+L LT Chains, Qn, Son 79-95-9955Gcnq [place] Light Chains, S281.2 mg/LHigh3.3-19.4The [facility] Physician GroupComment on above:Performed By: #### FE and TIBC, CLEOPATRA, CBC, LDH, CMP ####[address]#### KAPPA, MITCH SERUM, SPE ####[facility] ,Free Lambda Light Chains, S33.7 mg/LHigh5.7-26.3The [facility] Physician GroupComment on above: Performed By: #### FE and TIBC, CLEOPATRA, CBC, LDH, CMP ####[address]#### KAPPA, MITCH SERUM, SPE ####[facility] ,[place]/Lambda Ratio, S8.00Vbsg4.26-1.65The [facility] Health Physician GroupComment on above:Result Comment: Performed at: [facility] Lab[address] [id number] Pan Washer Hand: Jhoan Rich PhD, Phone: [phone] BY:[address] [place], [place] [phone] MEDICAL DIRECTORRONI MONTES M.D.Performed By: #### FE and TIBC, CLEOPATRA, CBC, LDH, CMP ####[address]#### KAPPA, MITCH SERUM, SPE ####[facility] ,Immunofixation,Serumon 08-23-2024 Immunofixation, SerumCommentCritically abnormal.The [facility] Comment on above:Result Comment: 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 PLEASE NOTE: Samples from patients receiving DARZALEX(R) (daratumumab) or SARCLISA(R)(isatuximab-irfc) treatment can appear as an IgG kappa and mask a complete response (CR). If this patient is receivin g these therapies, this MITCH assay interference can be removed by ordering test number [id number]- Immunofixation, Daratumumab-Specific, Serum or [id number]- Immunofixation, Isatuximab-Specific, Serum and submitting a new sample for testing or by calling the lab to add this test to the current sample.Performed By: #### FE and TIBC, CLEOPATRA, CBC, LDH, CMP ####[address]#### KAPPA, MITCH SERUM, SPE ####[facility] ,Immunoglobulin A, Ypwcb934 mg/zAEprf09-282Xil [facility] Physician GroupComment on above:Performed By: #### FE and TIBC, CLEOPATRA, CBC, LDH, CMP ####[place] [address] [place]#### KAPPA, MITCH SERUM, SPE ####[facility] ,Immunoglobulin G1832 mg/dLHigh 586-1602The [facility] Physician GroupComment on above:Performed By: #### FE and TIBC, CLEOPATRA, CBC, LDH, CMP ####[place] [address] [place]#### KAPPA, MITCH SERUM, SPE ####[facility] , Immunoglobulin M, Serum97 mg/tHVenume40-045Zep [facility] Physician GroupComment on above:Result Comment: Performed at: [address] [id number] Pan Washer Hand: Jhoan Rich PhD, Phone: [phone] Performed By: #### FE and TIBC, CLEOPATRA, CBC, LDH, CMP ####[place] [address] [place]#### KAPPA, MITCH SERUM, SPE ####[facility] ,Iron [Mass/volume] in Serum or PlasmaOrdered By: Roxane Bills on 12-44-0277Vdnu [Mass/Vol]57 ug/iXIfqssn41-233TblqfeirdMadison HealthComment on above:Performed By: #### FE and TIBC, CLEOPATRA, CBC, LDH, CMP ####[place] [address] [place]#### KAPPA, MTICH SERUM, SPE ####[facility] ,Iron and TIBC Profileon 08-23-2024% Iron Hdrsdvxlaf05.7 %Ovs92-03Bcd [facility] Physician GroupComment on above:Performed By: #### FE and TIBC, CLEOPATRA, CBC, LDH, CMP ####[address]#### KAPPA, MITCH SERUM, SPE ####[facility] ,Total Iron Binding Oyyhadkg613 ug/xWXemynd546-222Eyi [facility] Hospital Of Nittany ValleyComment on above:Performed By: #### FE and TIBC, CLEOPATRA, CBC, LDH, CMP ####[place] [address] [place]#### KAPPA, MITCH SERUM, SPE ####[facility] ,LDH Lactate Dehydrogenaseon 42-95-0569XUB Lactate Avsomtnmsdyxu861 U/BKpns830-833Lrc [facility] Physician [facility] Medical CenterComment on above:Performed By: #### FE and TIBC, CLEOPATRA, CBC, LDH, CMP ####[place] [address] [place]#### KAPPA, MITCH SERUM, SPE ####[facility] ,Lactate dehydrogenase [Enzymatic activity/volume] in Serum or Plasma by Lactate to py Ordered By: Roxane Bills on 73-90-1646IDA Lactate to pyruvate reaction [Catalytic activity/Vol]277 U/AJxmb059-639GiytxagkcMadison HealthNo Panel InformationOrdered By: Roxane Bills on 51.0 g/dLHighNot ObservedMadison HealthComment.Madison HealthProtein Electrophoresis, Serumon 37-17-5742Idofu-1-Globulin0.3 g/dLNormal0.0-0.4The [facility] Physician GroupComment on above:Performed By: #### FE and TIBC, CLEOPATRA, CBC, LDH, CMP ####[place] [address] [place]#### KAPPA, MITCH SERUM, SPE ####[facility] ,Yabrq-4-Qtianpti 1.0 g/dLNormal0.4-1.0The [facility] Physician GroupComment on above:Performed By: #### FE and TIBC, CLEOPATRA, CBC, LDH, CMP ####[address]#### KAPPA, MITCH SERUM, SPE ####[facility] ,Beta Globulin1.3 g/dLNormal0.7-1.3The [facility] Comment on above:Performed By: #### FE and TIBC, CLEOPATRA, CBC, LDH, CMP ####[address]#### KAPPA, MITCH SERUM, SPE ####[facility] ,Gamma Globulin1.7 g/dLNormal 0.4-1.8The [facility] Physician GroupComment on above:Performed By: #### FE and TIBC, CLEOPATRA, CBC, LDH, CMP ####[place] [address] [place]#### KAPPA, MITCH SERUM, SPE ####[facility] , M-Spike1.0 g/dLHighNot ObservedThe [facility] Physician GroupComment on above: Performed By: #### FE and TIBC, CLEOPATRA, CBC, LDH, CMP ####[place] [address] [place]#### KAPPA, MITCH SERUM, SPE ####[facility] ,SPE-NoteCommentNormal.The [facility] Comment on above:Result Comment: Protein electrophoresis scan will follow via computer, mail, or butt maker delivery. Performed at: [address] [id number] Pan Washer Hand: Jhoan Rich PhD, Phone: [phone] By: #### FE and TIBC, CLEOPATRA, CBC, LDH, CMP ####[facility]#### KAPPA, MITCH SERUM, SPE ####[facility] ,Serum free kappa light chain measurement Ordered By: Roxane Bills on 34-77-2596Ytmefbapvifhst light chains.kappa.free (S) [Mass/Vol]281.2 mg/LHigh3.3-19.4FPaulding County Hospitalerum globulin measurement (mass/volume)Ordered By: Roxane Bills on 40-35-1539Mrnmcpps (S) [Mass/Vol]4.4 g/dLHigh2.2-3.9Madison HealthComment on above: Performed By: #### FE and TIBC, CLEOPATRA, CBC, LDH, CMP ####[facility]#### KAPPA, MITCH SERUM, SPE ####[facility] ,Serum immunoglobulin free kappa light chains/immunoglobulin free lambda light chainsOrdered By: Roxane Bills on 05-09-1761Nxlmyuabamenhy light chains.kappa.free/Immunoglobulin light chains.lambda.free (S) [Mass ratio]8.09Hnxz5.26-1.65TriHealtherum or plasma IgA measurement (mass/volume)Ordered By: Roxane Bills on 93-99-5794AhT [Mass/Vol]546 mg/hBVhos90-251HphxbcxtsMadison Health Serum or plasma IgG measurement (mass/volume)Ordered By: Roxane Bills on 08-23-2024 IgG [Mass/Vol]1832 mg/aISmzr057-6207WhzwbnfutTriHealtherum or plasma IgM measurement (mass/volume)Ordered By: Roxane Bills on 28-91-4935MkN [Mass/Vol]97 mg/kZ37-924RendpceomTriHealtherum or plasma albumin measurement (mass/volume)Ordered By: Roxane Bills on 10-48-1262Qhlrlrt [Mass/Vol] 3.3 g/dLNormal2.9-4.4FClermont County HospitalComment on above:Performed By: #### FE and TIBC, CLEOPATRA, CBC, LDH, CMP ####[facility] [id number]#### KAPPA, MITCH SERUM, SPE ####[facility] ,Serum or plasma albumin/globulin mass ratioOrdered By: Roxane Bills on 41-62-2743Xrvwnpe/Globulin [Mass ratio]0.8 {ratio}Normal0.7-1.7FClermont County HospitalComment on above:Performed By: #### FE and TIBC, CLEOPATRA, CBC, LDH, CMP ####[facility] [id number]#### KAPPA, MITCH SERUM, SPE ####[facility] ,Serum or plasma alpha 1 globulin measurement by electrophoresis (mass/volume)Ordered By: Roxane Bills on 20-02-1669Qphaa 1 globulin Elph [Mass/Vol]0.3 g/dL0.0-0.4FPaulding County Hospitalerum or plasma alpha 2 globulin measurement by electrophoresis (mass/volume)Ordered By: Roxane Bills on 23-38-5914Hzjte 2 globulin Elph [Mass/Vol]1.0 g/dL0.4-1.0TriHealtherum or plasma beta globulin measurement by electrophoresis (mass/volume)Ordered By: Roxane Bills on 03-14-1403Pqlt globulin Elph [Mass/Vol]1.3 g/dL0.7-1.3FPaulding County Hospitalerum or plasma gamma globulin measurement by electrophoresis (mass/volume)Ordered By: Roxane Bills on 53-69-2181Jmyfc globulin Elph [Mass/Vol] 1.7 g/dL0.4-1.8TriHealtherum or plasma immunoglobulin free lambda light chains measurement (mass/volume)Ordered By: Roxane Bills on 43-78-6619Aegwfbuneeaimf light chains.lambda.free [Mass/Vol]33.7 mg/LHigh 5.7-26.3FPaulding County Hospitalerum or plasma iron binding capacity measurement (mass/volume)Ordered By: Roxane Bills on 52-16-9306Lggu binding capacity [Mass/Vol]364 ug/lS804-612RoxqfxklpTriHealtherum or plasma iron saturation measurement (mass fraction)Ordered By: Roxane Bills on 77-32-3890Rtro saturation [Mass fraction]15.7 %Qtr75-62FscpvhigtTriHealtherum total protein measurementOrdered By: Roxane Bills on 08-23-2024 Protein [Mass/Vol]7.7 g/dLNormal6.0-8.5FClermont County HospitalComment on above:Performed By: #### FE and TIBC, CLEOPATRA, CBC, LDH, CMP ####[facility]#### KAPPA, MITCH SERUM, SPE ####[facility] ,Transferrin [Mass/volume] in Serum or PlasmaOrdered By: Roxane Bills on 88-11-3747Aopbbenfzvo [Mass/Vol]260 mg/dLNormal 203-362Madison HealthComment on above:Performed By: #### FE and TIBC, CLEOPATRA, CBC, LDH, CMP ####[facility] [address]#### KAPPA, MITCH SERUM, SPE ####[facility] , Glucose (Bld) [Mass/Vol]Ordered By: Rossi Hurt on 71-15-4419Ahoqlzu Blood, BEB763 mg/dLNOPA HealthcareLaboratory - Hematology and Cell countson 08-22-2024 HbA1c (Bld) [Mass fraction]10.9 %[facility] CenterNo Panel InformationOrdered By: Rossi Hurt on 60-03-2884AYQD HealthcareCholesterol [Mass/volume] in Serum or PlasmaOrdered By: Peri Tyson on 97-63-5581Zqcifpixsup [Mass/Vol]Cholesterol [Mass/volume] in Serum or Usppem919-228VllctawedMadison HealthComment on above:Chol less than 200 mg/dl low riskChol 201-239 mg/dl borderline riskChol 240 mg/dl and greater high riskCholesterol [Mass/Vol]159 mg/pIEfmfud252-110 Madison HealthComment on above:Chol less than 200 mg/dl low riskChol 201-239 mg/dl borderline riskChol 240 mg/dl and greater high riskResult Comment: Chol less than 200 mg/dl low risk Chol 201-239 mg/dl borderline risk Chol 240 mg/dland greater high riskPerformed By: #### CCP, RA ####[facility] ,#### URMACRERAT, LIPID, ESR ####[facility] [address] [place] [address] USACholesterol in HDL [Mass/volume] in Serum or PlasmaOrdered By: Peri Tyson on 74-86-2919Knfsljmdnwq in HDL [Mass/Vol]Serum or plasma high density lipoprotein (HDL) cholesterol yfeyhblkzik06-97EjocphwcxMadison HealthComment on above:HDL CHOL ATP-III CLASSIFICATION Cardiovascular RiskHDL > or equal to 60 mg/dL LOWHDL < 40 mg/dL HIGHCholesterol in HDL [Mass/Vol]52 mg/aWUfpash97-41EtqaglwmxMadison HealthComment on above:HDL CHOL ATP-III CLASSIFICATION Cardiovascular RiskHDL > or equal to 60 mg/dL LOWHDL < 40 mg/dL HIGHResult Comment: HDL CHOL ATP-III CLASSIFICATION Cardiovascular Risk HDL > or equal to 60 mg/dL LOW HDL < 40 mg/dL HIGHPerformed By: #### CCP, RA ####[facility] ,#### URMACRERAT, LIPID, ESR ####[facility] [address] [place] [address] [place] Cholesterol in LDL Calc [Mass/Vol]Ordered By: Peri Tyson on 08-11-2024 Cholesterol in LDL [Mass/Vol]Cholesterol in LDL [Mass/volume] in Serum or Plasma by calculation0Madison HealthComment on above:LDL ATP III CLASSIFICATIONLDL less than 100 mg/dL OptimalLDL 100-129 mg/dL Near or above lahpbjwVZJ894-186 mg/dL Borderline highLDL 160-189 mg/dL HighLDL greater than 189 mg/dL Very highCholesterol in LDL [Mass/Vol]90 mg/dL0-100Madison HealthComment on above:LDL ATP III CLASSIFICATIONLDL less than 100 mg/dL OptimalLDL 100-129 mg/dL Near or above yyvaipeIOK945-781 mg/dL Borderline highLDL 160-189 mg/dL HighLDL greater than 189 mg/dL Very highCholesterol in VLDL Calc [Mass/Vol]Ordered By: Peri Tyson on 72-28-0690Mafppzntyxi in VLDL [Mass/Vol]Cholesterol in VLDL [Mass/volume] in Serum or Plasma by calculation Madison HealthCholesterol in VLDL [Mass/Vol]17 mg/dLMadison HealthCreatinine [Mass/volume] in UrineOrdered By: Peri Tyson on 00-28-7831Gbgikpdecw (U) [Mass/Vol]Creatinine [Mass/volume] in Urine Madison HealthComment on above:No reference range established Creatinine (U) [Mass/Vol]29.00 mg/dLMadison HealthComment on above:No reference range establishedCyclic Citrulliated Pep Abon 08-11-2024 Cyclic Citrulliated Pep Ld42Gmoihp9-39Fev [facility] Physician GroupComment on above:Result Comment: Negative <20 Weak positive 20 - 39 Moderate positive 40 - 59 Strong positive >59 Performed at: - [facility] [id number] Pan Washer Hand: Jhoan Rich PhD, Phone: [phone] BY:[facility] [place] [address] [place], [place] [phone] MEDICAL DIRECTORMOGONZALO BERRY M.D. Performed By: #### CCP, RA ####[facility] ,#### URMACRERAT, LIPID, ESR ####[facility] [place] [address] [facility] Erythrocyte Sedimentation Rateon 03-45-9968OZJ (Bld) [Velocity]65 mm/hHigh0-29 The [facility] Health Physician GroupComment on above:Result Comment: PERFORMED BY:[address] [place], [place] [phone] MEDICAL DIRECTORRONI BERRY M.D.Performed By: #### CCP, RA ####[facility] ,#### URMACRERAT, LIPID, ESR ####[address]Erythrocyte sedimentation rate by Photometric methodOrdered By: Peri Tyson on 08-11-2024 ESR Photometric method (Bld) [Velocity]Erythrocyte sedimentation rate by Photometric methodHigh0-Madison HealthESR Photometric method (Bld) [Velocity]65 mm/hrHigh0-29Madison HealthLipid Panelon 44-69-3122TVG Cholesterol,Qxhpmegmxq41 mg/dLNormal0-100The [facility] Health Physician GroupComment on above:Result Comment: LDL ATP III CLASSIFICATION LDL less than 100 mg/dL Optimal LDL 100-129 mg/dL Near or above optimal LDL 130-159 mg/dL Borderline high LDL 160-189 mg/dL High LDL greater than 189 mg/dL Very highPerformed By: #### CCP, RA ####[facility] ,#### URMACRERAT, LIPID, ESR ####[address] Triglyceride w/Hknrvv79 mg/dLNormal0-149The [facility] Health Physician GroupComment on above:Result Comment: TRIG ATP III CLASSIFICATION TRIG less than 150 mg/dL Normal TRIG 150-199 mg/dL Borderline high TRIG 200-500 mg/dL High TRIG greater than 500 mg/dL Very high Standard traceable to the Center for Disease Conrtrol and Prevention (CDC) test method.Performed By: #### CCP, RA ####[facility] ,#### URMACRERAT, LIPID, ESR ####[address]VLDL OPSZYOQWVJG62 mg/dLNoCentral Harnett Hospital Physician GroupComment on above:Performed By: #### CCP, RA ####[facility] ,#### URMACRERAT, LIPID, ESR ####[address] [place] [address] USAMicroAlb Creat Ratio,Uon 08-11-2024 Creatinine, Urine (Random)29.00 mg/dLNoCentral Harnett Hospital Physician GroupComment on above:Result Comment: No reference range establishedPerformed By: #### CCP, RA ####[facility] ,#### URMACRERAT, LIPID, ESR ####[place] [place] [id number] USAMicroalbumin/Creatinine Ratio 51.7 mg/gHigh0.0-30.0The [facility] Health Physician GroupComment on above:Result Comment: 30-300 mg/g indicates an increased risk for diabetic nephropathy. Greater than 300 mg/g is consistent with clinical nephropathy. (Am. J. Kidney Disease 1995, 25:107)PERFORMED BY:[address] [place], [place] [phone] MEDICAL DIRECTORRONI MONTES M.D.Performed By: #### CCP, RA ####[facility] ,#### URMACRERAT, LIPID, ESR ####[address] [place] [address] USAMicroalbumin [Mass/volume] in UrineOrdered By: Peri Tyson on 87-76-7656Muirpjz DL <= 20 mg/L (U) [Mass/Vol]Microalbumin [Mass/volume] in Urine0.0-1.8Madison HealthAlbumin DL <= 20 mg/L (U) [Mass/Vol]1.5 mg/dLNormal0.0-1.8[facility] Comment on above:Performed By: #### CCP, RA ####[facility] ,#### URMACRERAT, LIPID, ESR ####[facility] [address] [place] [address] USARheumatoid Factoron 90-24-7846Cpnqhfknwq Factor<10.0 Normal<14.0The [facility] Health Physician GroupComment on above:Result Comment: Performed at: - [id number] [place], [place] [id number] Pan Washer Hand: Jhoan Rich PhD, Phone: [phone] By: #### CCP, RA ####[facility] ,#### URMACRERAT, LIPID, ESR ####[facility] [address] [place] [address] USASerum or plasma cyclic adenosine monophosphate measurement (moles/volume)Ordered By: Peri Tyson on 62-31-6906Pneijegcw monophosphate.cyclic [Moles/Vol]12 units0-19Madison HealthComment on above:Negative <20 Weak positive 20 - 39 Moderate positive 40 - 59 Strong positive >59Performed at:[facility] [id number] Director: Jhoan Rich PhD, Phone: [phone] or plasma rheumatoid factor measurement (units/volume) Ordered By: Peri Tyson on 94-86-1605Pblpwodfuu factor Qn[IU]/mL<14.0Madison HealthComment on above:Performed at: [facility] [address] [id number] Director: Jhoan Rich PhD, Phone: [phone] or plasma total cholesterol/high density lipoprotein (HDL) cholesterol mass ratOrdered By: Peri Tyson on 08-11-2024 Cholesterol.total/Cholesterol in HDL [Mass ratio]Serum or plasma total cholesterol/high density lipoprotein (HDL) cholesterol mass rat<5.0Madison HealthCholesterol.total/Cholesterol in HDL [Mass ratio]3.1 {ratio}Normal<5.0Madison HealthComment on above:Result Comment: PERFORMED BY:[place], [place] [phone] MEDICAL DIRECTORRONI BERRY M.D. Performed By: #### CCP, RA ####[facility] ,#### URMACRERAT, LIPID, ESR ####[facility] [place] [address] [facility] Triglyceride [Mass/volume] in Serum or PlasmaOrdered By: Peri Tyson on 54-62-0955Ncjkahztqfqc [Mass/Vol]Triglyceride [Mass/volume] in Serum or Plasma 0-149Madison HealthComment on above:TRIG ATP III CLASSIFICATIONTRIG less than 150 mg/dL NormalTRIG 150-199 mg/dL Borderline highTRIG 200-500 mg/dL High TRIG greater than 500 mg/dL Very highStandard traceable to the Center for Disease Conrtrol and Prevention (CDC) test method. Triglyceride [Mass/Vol]85 mg/dL0-149Madison HealthComment on above:TRIG ATP III CLASSIFICATIONTRIG less than 150 mg/dL NormalTRIG 150-199 mg/dL Borderline highTRIG 200-500 mg/dL High TRIG greater than 500 mg/dL Very highStandard traceable to the Center for Disease Conrtrol and Prevention (CDC) test method.Urine microalbumin/creatinine mass ratioOrdered By: Peri Tyson on 43-85-2833Udjxuat/Creatinine DL <= 20 mg/L (U) [Mass ratio]Urine microalbumin/creatinine mass ratioHigh0.0-30.0[facility] Comment on above:30-300 mg/g indicates an increased risk for diabetic nephropathy. Greater than 300 mg/g is consistent with clinical nephropathy. (Am. J. Kidney Disease 1995, 25:107)Albumin/Creatinine DL <= 20 mg/L (U) [Mass ratio] 51.7 mg/gHigh0.0-30.0Madison HealthComment on above:30-300 mg/g indicates an increased risk for diabetic nephropathy. Greater than 300 mg/g is consistent with clinical nephropathy. (Am. J. Kidney Disease 1994, 25:107) Glucose (Bld) [Mass/Vol]Ordered By: Rossi Hurt on 15-56-4762Zizlvwr Blood, EOA632 mg/dLNOPA HealthcareLaboratory - Hematology and Cell countson 05-25-2024 HbA1c (Bld) [Mass fraction]13.4 %[facility] CenterNo Panel InformationOrdered By: Rossi Hurt on 72-51-5951NVEU HealthcareFREE K+L LT CHAINS, QN, Son 02-26-2024 FREE KAPPA LIGHT CHAINS, S234 mg/LHigh3.3 - 19.4 mg/LNOMS HealthcareFREE LAMBDA LIGHT CHAINS, S38.4 mg/LHigh5.7 - 26.3 mg/LNOMS HealthcareKAPPA/LAMBDA RATIO, S 6.29Rnay1.26 - 1.65NOPA HealthcareComment on above:Performed at: [facility] [id number] Pan Washer Hand: Jhoan Rich PhD, Phone: [phone] IMMUNOFIXATION,SERUM ([facility])on 13-98-5006AZXZIKILALDKDR, SERUMCommentCritically abnormal.[facility] HealthcareComment on above: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 PLEASE NOTE: Samples from patients receiving DARZALEX(R) (daratumumab) or SARCLISA(R)(isatuximab-irfc) treatment can appear as an IgG kappa and mask a complete response (CR). If this patient is receiving these therapies, this MITCH assay interference can be removed by ordering test number 430794- Immunofixation, Daratumumab-Specific, Serum or [id number]- Immunofixation, Isatuximab-Specific, Serum and submitting a new sample for testing or by calling the lab to add this test to the current sample. IMMUNOGLOBULIN A, HOQTM432 mg/sWNyzn14 - 352 mg/dLNOPA HealthcareIMMUNOGLOBULIN G1714 mg/jJWiqq628 - 1602 mg/dLNOPA HealthcareIMMUNOGLOBULIN M, SERUM86 mg/dL26 - 217 mg/dLNOPA HealthcareComment on above:Performed at: [facility] [id number] Pan Washer Hand: Jhoan Rich PhD, Phone: [phone] No Panel Informationon 25-90-9437Pbsnnjwbrrpaxf and review of laboratory results AbnormalNOSt. Luke's HospitalNOPA HealthcareProtein electrophoresis, serumon 24-67-9192Jbhclwp [Mass/Vol]3.3 g/dL2.9 - 4.4 g/dLHedrick Medical Center Albumin/Globulin [Mass ratio]0.8 {ratio}0.7 - 1.7NOSt. Luke's HospitalPdvvghzkjoXUHPX-1-JXFZVFWE 0.3 g/dL0.0 - 0.4 g/dLNOSt. Luke's HospitalUzwnjuoifxZRYKF-3-CJLUTURE2.9 g/dL0.4 - 1.0 g/dLNOPA HealthcareBETA GLOBULIN1.2 g/dL0.7 - 1.3 g/dLNOSt. Luke's HospitalGAMMA GLOBULIN1.7 g/dL0.4 - 1.8 g/dLHedrick Medical CenterGlobulin (S) [Mass/Vol]4.1 g/dLHigh2.2 - 3.9 g/dLNOPA HealthcareM-SPIKE0.9 g/dLHighNot ObservedNOPA HealthcareProtein [Mass/Vol]7.4 g/dL6.0 - 8.5 g/dLHedrick Medical CenterSPE-NOTEComment.[facility] Comment on above:Protein electrophoresis scan will follow via computer, mail, or butt maker delivery. Performed at: [facility] [address] [id number] Pan Washer Hand: Jhoan Rich PhD, Phone: [phone] Alanine aminotransferase [Enzymatic activity/volume] in Serum or PlasmaOrdered By: Roxane Bills on 86-84-3599UTO [Catalytic activity/Vol]Alanine aminotransferase [Enzymatic activity/volume] in Serum or PlasmaHigh7-52Madison HealthAlbumin [Mass/volume] in Serum or Plasma by Bromocresol green (BCG) dye binding methoOrdered By: Roxane Bills on 51-58-4888Ssmeabl BCG dye [Mass/Vol] Albumin [Mass/volume] in Serum or Plasma by Bromocresol green (BCG) dye binding metho3.5-5.7FClermont County HospitalAlkaline phosphatase [Enzymatic activity/volume] in Serum or PlasmaOrdered By: Roxane Bills on 98-59-9802XPF [Catalytic activity/Vol]Alkaline phosphatase [Enzymatic activity/volume] in Serum or BijzoaPffk74-939UysisdxsyMadison HealthAspartate aminotransferase [Enzymatic activity/volume] in Serum or PlasmaOrdered By: Roxane Bills on 67-77-9140FUI [Catalytic activity/Vol]Aspartate aminotransferase [Enzymatic activity/volume] in Serum or YkxdgfKycy06-59UbcsaqoavMadison HealthBasophils Auto (Bld) [#/Vol]Ordered By: Roxane Bills on 02-24-2024 Basophils (Bld) [#/Vol]Automated basophil count0.0-0.2FClermont County HospitalBasophils/100 WBC Auto (Bld)Ordered By: Roxane Bills on 02-24-2024 Basophils/100 WBC (Bld)Automated basophil %.[facility] Bilirubin.total [Mass/volume] in Serum or PlasmaOrdered By: Roxane Bills on 93-96-2997Lhpwavhua [Mass/Vol]Bilirubin.total [Mass/volume] in Serum or Plasma 0.3-1.0Madison HealthCBC W Auto Differential panel (Bld)on 66-06-9802Tdfiqtxek (Bld) [#/Vol]0.1 10*3/uL0.0 - 0.2 10*3/uLNOMS Healthcare Basophils/100 WBC Manual cnt (Syn fld)0.5 %.[facility] HealthcareEosinophils (Bld) [#/Vol]0.5 10*3/uLHigh0.0 - 0.45 10*3/uLNOMS HealthcareEosinophils/100 WBC Manual cnt (Syn fld)4.5 %.[facility] HealthcareErythrocyte distribution width (RBC) [Ratio]15 %11.9 - 15.3 %[facility] HealthcareHematocrit (Bld) [Volume fraction]38.8 % 34.0 - 46.4 %[facility] Medical CenterHemoglobin (Bld) [Mass/Vol]12.5 g/dL11.8 - 15.4 g/dL [facility] HealthcareInterpretation and review of laboratory resultsAbnormalAMERICAN FORK HOSPITAL HealthcareLymphocytes (Bld) [#/Vol]2.2 10*3/uL1.00 - 4.8 10*3/uLNOMS Healthcare Lymphocytes/100 WBC Manual cnt (Syn fld)21.3 %.[facility] CenterH (RBC) [Entitic mass]28.4 pg24.7 - 34.3 pgNOMS HealthcareMCHC (RBC) [Mass/Vol]32.2 g/dL32.0 - 35.0 g/dLNevada Regional Medical CenterV (RBC) [Entitic vol]88.3 fL80 - 100 fLAMERICAN FORK HOSPITAL Healthcare Monocytes (Bld) [#/Vol]0.7 10*3/uL0.0 - 0.8 10*3/uLNOPA Healthcare Monocytes+Macrophages/100 WBC Manual cnt (Syn fld)6.5 %.[facility] Healthcare Neutrophils (Bld) [#/Vol]7 10*3/uL1.8 - 7.7 10*3/uLNOMS Healthcare Neutrophils/100 WBC Manual cnt (Syn fld)67.2 %.[facility] HealthcareNRBC0 /100{WBC}0 - 0.5 /100{WBC}NOM HealthcarePlatelet mean volume (Bld) [Entitic vol]7.8 fL6.3 - 10.7 fLAMERICAN FORK HOSPITAL HealthcarePlatelets (Bld) [#/Vol]209 10*3/uL150 - 450 10*3/uLNOSt. Luke's HospitalRBC LM.HPF (Urine sed) [#/Area]4.39 10*6/uL3.60 - 5.00 10*6/uLNOSt. Luke's HospitalWBC (Bld) [#/Vol]10.5 10*3/uL3.8 - 11.6 10*3/uLNOMS HealthcareWBC LM.HPF (Urine sed) [#/Area]10.5 10*3/uL3.8 - 11.6 10*3/uLNOChristian Hospital HealthcareCalcium [Mass/volume] in Serum or PlasmaOrdered By: Roxane Bills on 69-22-3896Gwxyiis [Mass/Vol]Calcium [Mass/volume] in Serum or PlasmaLow8.6-10.3 Madison HealthCarbon dioxide, total [Moles/volume] in Serum or PlasmaOrdered By: Roxane Bills on 88-92-4916WI0 [Moles/Vol]Carbon dioxide, total [Moles/volume] in Serum or DctovdMtql07.0-31.0[facility] Chloride [Moles/volume] in Serum or PlasmaOrdered By: Roxane Bills on 02-24-2024 Chloride [Moles/Vol]Chloride [Moles/volume] in Serum or Xphdkj22-054LmbsngfskMadison HealthComplete Blood Count Auto Diffon 56-50-6386Qhiuewoeu (Bld) [#/Vol]0.1 10*3/uLNormal0.0-0.2The [facility] Health Physician GroupComment on above:Result Comment: PERFORMED BY:[address] [place], [place] [phone] MEDICAL DIRECTORRONI MONTES M.D.Performed By: #### FE and TIBC, CLEOPATRA, CBC, CMP ####[address]#### SPE, MITCH SERUM, KAPPA ####[facility] ,Basophils/100 WBC (Bld)0.5 %Normal.The [facility] Health Physician GroupComment on above:Performed By: #### FE and TIBC, CLEOPATRA, CBC, CMP ####[address]#### SPE, MITCH SERUM, KAPPA ####[facility] ,Eosinophils (Bld) [#/Vol]0.5 10*3/uLHigh0.0-0.45The [facility] Health Physician GroupComment on above:Performed By: #### FE and TIBC, CLEOPATRA, CBC, CMP ####[address]#### SPE, MITCH SERUM, KAPPA ####[facility] ,Eosinophils/100 WBC (Bld)4.5 %Normal.The [facility] Comment on above:Performed By: #### FE and TIBC, CLEOPATRA, CBC, CMP ####[address]#### SPE, MITCH SERUM, KAPPA ####[facility] ,Erythrocyte distribution width (RBC) [Ratio]15.0 %Jctbgj46.9-15.3The [facility] Health Physician GroupComment on above:Performed By: #### FE and TIBC, CLEOPATRA, CBC, CMP ####[address]#### SPE, MITCH SERUM, KAPPA ####[facility] ,Hematocrit (Bld) [Volume fraction]38.8 %Ympwmm67.0-46.4The [facility] Health Physician GroupComment on above:Performed By: #### FE and TIBC, CLEOPATRA, CBC, CMP ####[place] [address] [place]#### SPE, MITCH SERUM, KAPPA ####[facility] ,Hemoglobin (Bld) [Mass/Vol]12.5 g/iRPgpvqu80.8-15.4The [facility] Health Physician GroupComment on above: Performed By: #### FE and TIBC, CLEOPATRA, CBC, CMP ####[address]#### SPE, MITCH SERUM, KAPPA ####[facility] ,Lymphocytes (Bld) [#/Vol]2.2 10*3/uLNormal1.00-4.8The [facility] Health Physician GroupComment on above:Performed By: #### FE and TIBC, CLEOPATRA, CBC, CMP ####[address]#### SPE, MITCH SERUM, KAPPA ####[facility] ,Lymphocytes/100 WBC (Bld)21.3 % Normal.The [facility] Health Physician GroupComment on above:Performed By: #### FE and TIBC, CLEOPATRA, CBC, CMP ####[place] [address] [place]#### SPE, MITCH SERUM, KAPPA ####[facility] ,MCH (RBC) [Entitic mass]28.4 giYtkknv21.7-34.3The [facility] Health Physician GroupComment on above:Performed By: #### FE and TIBC, CLEOPATRA, CBC, CMP ####[place] [address] [place]#### SPE, MITCH SERUM, KAPPA ####[facility] ,MCV (RBC) [Entitic vol]88.3 yABibceq89-181Lmv [facility] Physician GroupComment on above:Performed By: #### FE and TIBC, CLEOPATRA, CBC, CMP ####[address]#### SPE, MITCH SERUM, KAPPA ####[facility] ,Mean Corpuscular HGB Conc32.2 g/jWBvpqdg78.0-35.0The [facility] Health Physician GroupComment on above: Performed By: #### FE and TIBC, CLEOPATRA, CBC, CMP ####[address]#### SPE, MITCH SERUM, KAPPA ####[facility] ,Monocytes (Bld) [#/Vol]0.7 10*3/uLNormal0.0-0.8The [facility] Health Physician GroupComment on above:Performed By: #### FE and TIBC, CLEOPATRA, CBC, CMP ####[place] [address] [place]#### SPE, MITCH SERUM, KAPPA ####[facility] ,Monocytes/100 WBC (Bld)6.5 % Normal.The [facility] Health Physician GroupComment on above:Performed By: #### FE and TIBC, CLEOPATRA, CBC, CMP ####[place] [address] [place]#### SPE, MITCH SERUM, KAPPA ####[facility] ,Neutrophils (Bld) [#/Vol]7.0 10*3/uLNormal1.8-7.7The [facility] Health Physician GroupComment on above:Performed By: #### FE and TIBC, CLEOPATRA, CBC, CMP ####[place] [address] [place]#### SPE, MITCH SERUM, KAPPA ####[facility] ,Neutrophils/100 WBC (Bld)67.2 %Normal.The [facility] Health Physician GroupComment on above:Performed By: #### FE and TIBC, CLEOPATRA, CBC, CMP ####[address]#### SPE, MITCH SERUM, KAPPA ####[facility] ,NRBC%0.0 /100{WBC}Normal0-0.5The [facility] Health Physician GroupComment on above:Performed By: #### FE and TIBC, CLEOPATRA, CBC, CMP ####[address]#### SPE, MITCH SERUM, KAPPA ####[facility] ,Platelet mean volume (Bld) [Entitic vol]7.8 fLNormal6.3-10.7The [facility] Health Physician GroupComment on above:Performed By: #### FE and TIBC, CLEOPATRA, CBC, CMP ####[address]#### SPE, MITCH SERUM, KAPPA ####[facility] ,Platelets (Bld) [#/Vol]209 10*3/jGOsulsd471-452Rqk [facility] Physician GroupComment on above:Performed By: #### FE and TIBC, CLEOPATRA, CBC, CMP ####[place] [address] [place]#### SPE, MITCH SERUM, KAPPA ####[facility] ,RBC (Bld) [#/Vol]4.39 10*6/uLNormal3.60-5.00The [facility] Health Physician GroupComment on above:Performed By: #### FE and TIBC, CLEOPATRA, CBC, CMP ####[place] [address] [place]#### SPE, MITCH SERUM, KAPPA ####[facility] ,WBC (Bld) [#/Vol]10.5 10*3/uLNormal3.8-11.6The [facility] Health Physician GroupComment on above:Performed By: #### FE and TIBC, CLEOPATRA, CBC, CMP ####[address]#### SPE, MITCH SERUM, KAPPA ####[facility] ,Comprehensive Metabolic Panelon 69-64-9837Wbwralf [Mass/Vol]3.6 g/dLNormal3.5-5.7The [facility] Comment on above:Performed By: #### FE and TIBC, CLEOPATRA, CBC, CMP ####[address]#### SPE, MITCH SERUM, KAPPA ####[facility] ,Albumin/Globulin [Mass ratio]1.0 {ratio}Normal The [facility] Health Physician GroupComment on above:Performed By: #### FE and TIBC, CLEOPATRA, CBC, CMP ####[address]#### SPE, MITCH SERUM, KAPPA ####[facility] ,ALP [Catalytic activity/Vol]175 U/KYosf36-293Pjz [facility] Physician GroupComment on above: Performed By: #### FE and TIBC, CLEOPATRA, CBC, CMP ####[place] [address] [place]#### SPE, MITCH SERUM, KAPPA ####[facility] ,ALT [Catalytic activity/Vol]74 U/LHigh7-52The [facility] Health Physician GroupComment on above:Performed By: #### FE and TIBC, CLEOPATRA, CBC, CMP ####[place] [address] [place]#### SPE, MITCH SERUM, KAPPA ####[facility] ,Anion gap [Moles/Vol]11.4 mmol/L Normal6.0-15.0The [facility] Health Physician GroupComment on above:Performed By: #### FE and TIBC, CLEOPATRA, CBC, CMP ####[place] [address] [place]#### SPE, MITCH SERUM, KAPPA ####[facility] ,AST [Catalytic activity/Vol]43 [id number] [facility] Physician GroupComment on above:Performed By: #### FE and TIBC, CLEOPATRA, CBC, CMP ####[place] [address] [place]#### SPE, MITCH SERUM, KAPPA ####[facility] ,Bilirubin [Mass/Vol]0.3 mg/dL Normal0.3-1.0The [facility] Physician GroupComment on above:Performed By: #### FE and TIBC, CLEOPATRA, CBC, CMP ####[address]#### SPE, MITCH SERUM, KAPPA ####[facility] ,Calcium [Mass/Vol]8.3 mg/dLLow8.6-10.3The [facility] Physician GroupComment on above: Performed By: #### FE and TIBC, CLEOPATRA, CBC, CMP ####[place] [address] [place]#### SPE, MITCH SERUM, KAPPA ####[facility] ,Chloride [Moles/Vol]98 mmol/[id number] [facility] Physician GroupComment on above:Performed By: #### FE and TIBC, CLEOPATRA, CBC, CMP ####[place] [address] [place]#### SPE, MITCH SERUM, KAPPA ####[facility] ,CO2 [Moles/Vol]35.8 mmol/LHigh 21.0-31.0The [facility] Health Physician GroupComment on above:Performed By: #### FE and TIBC, CLEOPATRA, CBC, CMP ####[place] [address] [place]#### SPE, MITCH SERUM, KAPPA ####[facility] , Creatinine [Mass/Vol]1.32 mg/dLHigh0.60-1.20The [facility] Physician GroupComment on above:Performed By: #### FE and TIBC, CLEOPATRA, CBC, CMP ####[address]#### SPE, MITCH SERUM, KAPPA ####[facility] ,Creatinine Clr Calc Jtvkkjdy03.49NormalThe [facility] Health Physician GroupComment on above:Performed By: #### FE and TIBC, CLEOPATRA, CBC, CMP ####[address]#### SPE, MITCH SERUM, KAPPA ####[facility] ,GFR/1.73 sq M.predicted MDRD (S/P/Bld) [Vol rate/Area]44.805 mL/min/{1.73_m2}NormalThe [facility] Physician [facility] Va Medical CenterComment on above:Performed By: #### FE and TIBC, CLEOPATRA, CBC, CMP ####[address]#### SPE, MITCH SERUM, KAPPA ####[facility] ,Globulin (S) [Mass/Vol]3.6 g/dL NormalThe [facility] Physician [facility] Medical CenterComment on above:Performed By: #### FE and TIBC, CLEOPATRA, CBC, CMP ####[place] [address] [place]#### SPE, MITCH SERUM, KAPPA ####[facility] ,Glucose [Mass/Vol]264 mg/nLDuni38-218Ods [facility] Medical CenterComment on above: Result Comment: Random Glucose Reference Range is dependent on time and content of last meal. Glucose of more than 200 mg/dL in a nonstressed, ambulatory subject supports the diagnosis of Diabetes Mellitus. ADA recommended reference rangePerformed By: #### FE and TIBC, CLEOPATRA, CBC, CMP ####[address]#### SPE, MITCH SERUM, KAPPA ####[facility] ,Potassium [Moles/Vol]4.2 mmol/LNormal3.5-5.1The [facility] Physician GroupComment on above:Performed By: #### FE and TIBC, CLEOPATRA, CBC, CMP ####[place] [address] [place]#### SPE, MITCH SERUM, KAPPA ####[facility] ,Protein [Mass/Vol]7.2 g/dLNormal6.4-8.9The [facility] Physician GroupComment on above:Performed By: #### FE and TIBC, CLEOPATRA, CBC, CMP ####[address]#### SPE, MITCH SERUM, KAPPA ####[facility] ,Sodium [Moles/Vol]141 mmol/UGmibqm129-717Hne [facility] Physician GroupComment on above:Performed By: #### FE and TIBC, CLEOPATRA, CBC, CMP ####[place] [address] [place]#### SPE, MITCH SERUM, KAPPA ####[facility] ,Urea nitrogen [Mass/Vol]24 mg/dL Normal7-25The [facility] Physician GroupComment on above:Performed By: #### FE and TIBC, CLEOPATRA, CBC, CMP ####[place] [address] [place]#### SPE, MITCH SERUM, KAPPA ####[facility] , Comprehensive metabolic panelon 77-70-1762Jmsfxpa [Mass/Vol]3.6 g/dL3.5 - 5.7 g/dLNOMS HealthcareAlbumin/Globulin [Mass [...] - 1.20 mg/dL NOMS HealthcareCREATININE CLR CALC XJBMVJKK57.49NOMS HealthcareGFR/1.73 sq M.predicted MDRD (S/P/Bld) [Vol rate/Area]44.805 mL/min/{1.73_m2}[facility] Globulin (S) [Mass/Vol]3.6 g/dLNOMS HealthcareGlucose [Mass/Vol]264 mg/xJXlff05 - 100 mg/dLNOPA HealthcareComment on above:Random Glucose Reference Range is dependent on time and content of last meal. Glucose of more than 200 mg/dL in a nonstressed, ambulatory subject supports the diagnosis of Diabetes Mellitus. ADA recommended reference range Potassium [Moles/Vol]4.2 mmol/L3.5 - 5.1 mmol/LNOMS HealthcareProtein [Mass/Vol] 7.2 g/dL6.4 - 8.9 g/dLNOPA HealthcareSodium [Moles/Vol]141 mmol/L136 - 145 mmol/LNOMS HealthcareUrea nitrogen [Mass/Vol]24 mg/dL7 - 25 mg/dLNOPA Healthcare Creatinine [Mass/volume] in Serum or PlasmaOrdered By: Roxane Bills on 02-24-2024 Creatinine [Mass/Vol]Creatinine [Mass/volume] in Serum or PlasmaHigh0.60-1.20 [facility] HealthEosinophils Auto (Bld) [#/Vol]Ordered By: Roxane Bills on 76-95-0838Bqjerdhcqap (Bld) [#/Vol]Automated eosinophil countHigh 0.0-0.45[facility] HealthEosinophils/100 WBC Auto (Bld)Ordered By: Roxane Bills on 32-55-2729Biiuxojsgec/100 WBC (Bld)Automated eosinophil %. [facility] HealthErythrocyte distribution width Auto (RBC) [Ratio]Ordered By: Roxane Bills on 47-08-9814Bpotheinoeg distribution width (RBC) [Ratio]Erythrocyte distribution width [Ratio] by Automated count11.9-15.3 [facility] HealthFerritinon 03-29-1008Zxpouhwh [Mass/Vol]161.8 ng/mL11.0 - 306.8 ng/mLNOMS HealthcareFerritin [Mass/Vol]161.8 ng/mLNormal 11.0-306.8The [facility] Health Physician GroupComment on above:Result Comment: PERFORMED BY:[address] [place], [place] [phone] MEDICAL DIRECTORRONI BERRY M.D. Performed By: #### FE and TIBC, CLEOPATRA, CBC, CMP ####[address]#### SPE, MITCH SERUM, KAPPA ####[facility] ,Ferritin [Mass/volume] in Serum or PlasmaOrdered By: Roxane Bills on 20-63-6740Jzszqooi [Mass/Vol]Ferritin [Mass/volume] in Serum or Plasma 11.0-306.8Madison HealthFree K+L LT Chains, Qn, Son 71-21-5154Lvhz [place] Light Chains, S234.0 mg/LHigh3.3-19.4The [facility] Health Physician GroupComment on above:Performed By: #### FE and TIBC, CLEOPATRA, CBC, CMP ####[address]#### SPE, MITCH SERUM, KAPPA ####[facility] ,Free Lambda Light Chains, S38.4 mg/LHigh5.7-26.3The [facility] Health Physician GroupComment on above:Performed By: #### FE and TIBC, CLEOPATRA, CBC, CMP ####[facility]#### SPE, MITCH SERUM, KAPPA ####[facility] ,[place]/Lambda Ratio, S6.68Lyih5.26-1.65The [facility] Health Physician GroupComment on above:Result Comment: Performed at: - [facility] [id number] Pan Washer Hand: Jhoan Rich PhD, Phone: [phone] BY:[address] [phone] MEDICAL DIRECTORMOGONZALO BERRY M.D. Performed By: #### FE and TIBC, CLEOPATRA, CBC, CMP ####[facility]#### SPE, MITCH SERUM, KAPPA ####[facility] ,Globulin Calc (S) [Mass/Vol]Ordered By: Roxane Bills on 02-24-2024 Globulin (S) [Mass/Vol]Serum globulin measurement by calculation (mass/volume) [facility] HealthGlucose [Mass/volume] in Serum or PlasmaOrdered By: Roxane Bills on 94-64-2589Xgyogtw [Mass/Vol]Glucose [Mass/volume] in Serum or VradctDpbo53-933GjnuqfscqMadison HealthComment on above:ADA recommended reference rangeRandom Glucose Reference Range is dependent on time and content of last meal. Glucose of more than 200 mg/dL in a nonstressed, ambulatory subject supports the diagnosisof Diabetes Mellitus.Hematocrit Auto (Bld) [Volume fraction]Ordered By: Roxane Bills on 57-06-3014Xdkpmiwnsz (Bld) [Volume fraction]Hematocrit [Volume Fraction] of Blood by Automated count 34.0-46.4FClermont County HospitalHemoglobin [Mass/volume] in Blood Ordered By: Roxane Bills on 93-78-5182Raxfrhyyqo (Bld) [Mass/Vol]Hemoglobin [Mass/volume] in Blood11.8-15.4FClermont County Hospital Immunofixation,Serumon 95-53-2758Xgxkyatxtrsqur, SerumCommentCritically abnormal .The [facility] Health Physician GroupComment on above:Result Comment: 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 PLEASE NOTE: Samples from patients receiving DARZALEX(R) (daratumumab) or SARCLISA(R)(isatuximab-irfc) treatment can appear as an IgG kappa and mask a complete response (CR). If this patient is receiving these therapies, this MITCH assay interference can be removed by ordering test number [id number]- Immuno fixation, Daratumumab-Specific, Serum or [id number]- Immunofixation, Isatuximab- Specific, Serum and submitting a new sample for testing or by calling the lab to add this test to the current sample.Performed By: #### FE and TIBC, CLEOPATRA, CBC, CMP ####[address]#### SPE, MITCH SERUM, KAPPA ####[facility] ,Immunoglobulin A, Serum 519 mg/qDTjqz45-664Fuc [facility] Hospital Of Nittany ValleyComment on above:Performed By: #### FE and TIBC, CLEOPATRA, CBC, CMP ####[address]#### SPE, MITCH SERUM, KAPPA ####[facility] ,Immunoglobulin G1714 mg/uTOkeb602-9799Vbs [facility] Of Nittany ValleyComment on above:Performed By: #### FE and TIBC, CLEOPATRA, CBC, CMP ####[address]#### SPE, MITCH SERUM, KAPPA ####[facility] ,Immunoglobulin M, Serum86 mg/dL Dvwffd34-105Wub [facility] Of Nittany ValleyComment on above:Result Comment: Performed at: - [facility] [id number] Pan Washer Hand: Jhoan Rich PhD, Phone: [phone] By: #### FE and TIBC, CLEOPATRA, CBC, CMP ####[address]#### SPE, MITCH SERUM, KAPPA ####[facility] ,Iron [Mass/volume] in Serum or PlasmaOrdered By: Roxane Bills on 74-81-4615Pmho [Mass/Vol]Iron [Mass/volume] in Serum or Drxyml77-501PupegpreuMadison HealthIron and Iron binding capacity panelon 02-24-2024% IRON TMXIIOJZGM59.1 % Low20 - 50 %NOMS HealthcareIron [Mass/Vol]55 ug/dL50 - 212 ug/dLNOMS Healthcare TOTAL IRON BINDING HKXQFXMH140 ug/dL255 - 450 ug/dLNOMS HealthcareTransferrin [Mass/Vol]230 mg/dL203 - 362 mg/dLNOPA HealthcareIron and TIBC Profileon 02-24-2024% Iron Zrozusdctj12.1 %Gqo14-15Eik [facility] Physician GroupComment on above:Performed By: #### FE and TIBC, CLEOPATRA, CBC, CMP ####[place] [address] [place]#### SPE, MITCH SERUM, KAPPA ####[facility] ,Iron [Mass/Vol]55 ug/aIQkhhtm20-613Ckf [facility] Physician GroupComment on above:Performed By: #### FE and TIBC, CLEOPATRA, CBC, CMP ####[place] [address] [place]#### SPE, MITCH SERUM, KAPPA ####[facility] ,Total Iron Binding Qmrdafls086 ug/nQTvybrs972-953Pmq [facility] Physician GroupComment on above:Performed By: #### FE and TIBC, CLEOPATRA, CBC, CMP ####[place] [address] [place]#### SPE, MITCH SERUM, KAPPA ####[facility] ,Transferrin [Mass/Vol]230 mg/lPBtvdtw523-971Szj [facility] Physician GroupComment on above:Performed By: #### FE and TIBC, CLEOPATRA, CBC, CMP ####[facility] [address] [place] [address] [facility]#### SPE, MITCH SERUM, KAPPA ####[facility] ,Laboratory - Chemistry and Chemistry - challengeOrdered By: Roxane Bills on 43-87-2946Sozwost [Mass/Vol]0.9 g/dLHighNot ObservedMadison HealthLeukocytes [#/volume] corrected for nucleated erythrocytes in Blood by Automated counOrdered By: Roxane Bills on 33-11-6772OOZ corrected for nucl RBC Auto (Bld) [#/Vol]Leukocytes [#/volume] corrected for nucleated erythrocytes in Blood by Automated coun 3.8-11.6FClermont County HospitalLymphocytes Auto (Bld) [#/Vol]Ordered By: Roxane Bills on 20-79-6518Nbsvuaonwef (Bld) [#/Vol]Lymphocytes [#/volume] in Blood by Automated count1.00-4.8[facility] HealthLymphocytes/100 WBC Auto (Bld)Ordered By: Roxane Bills on 88-48-1191Wffbsrctemc/100 WBC (Bld) Lymphocytes/100 leukocytes in Blood by Automated count.[facility] HealthMCH Auto (RBC) [Entitic mass]Ordered By: Roxane Bills on 02-24-2024 MCH (RBC) [Entitic mass]MCH [Entitic mass] by Automated count24.7-34.3FClermont County HospitalMCHC Auto (RBC) [Mass/Vol]Ordered By: Roxane Bills on 12-52-7271MPHZ (RBC) [Mass/Vol]MCHC [Mass/volume] by Automated count32.0-35.0 [facility] HealthMCV Auto (RBC) [Entitic vol]Ordered By: Roxane Bills on 89-58-0707ZUA (RBC) [Entitic vol]MCV [Entitic volume] by Automated dwzcy84-746JthqwptkcMadison HealthMonocytes Auto (Bld) [#/Vol]Ordered By: Roxane Bills on 71-05-2182Vebpzisbi (Bld) [#/Vol]Automated blood monocyte count 0.0-0.8Madison HealthMonocytes/100 WBC Auto (Bld)Ordered By: Roxane Bills on 36-28-0720Uqriptlid/100 WBC (Bld)Automated monocyte %.[facility] HealthNeutrophils Auto (Bld) [#/Vol]Ordered By: Roxane Bills on 77-48-0198Jkabrotrzky (Bld) [#/Vol]Neutrophils [#/volume] in Blood by Automated count1.8-7.7FClermont County HospitalNeutrophils/100 WBC Auto (Bld) Ordered By: Roxane Bills on 78-75-5925Hensopdgwru/100 WBC (Bld)Automated neutrophil %.[facility] HealthNo Panel Informationon 02-24-2024 Interpretation and review of laboratory resultsAbnoBlack River Memorial HospitalNo Panel InformationOrdered By: Roxane Bills on 47-24-6802Tfgkapnex GFR (CKD-EPI)44.805 mL/MinMadison HealthPharmacy Creatinine Clearance (Chem48.49Madison HealthProtein Electrophoresis NoteComment.Madison HealthComment on above:Protein electrophoresis scan will follow via computer,mail, or butt maker delivery.Performed at: [facility] [place] [id number] Director: Jhoan Rich PhD, Phone: [phone] erythrocytes [Presence] in Blood by Automated countOrdered By: Roxane Bills on 40-40-5867Qwdjnhfjm RBC Auto Ql (Bld)Nucleated erythrocytes [Presence] in Blood by Automated count0-0.5FClermont County HospitalPlatelet mean volume Auto (Bld) [Entitic vol]Ordered By: Roxane Bills on 87-80-6526Ahkkaukq mean volume (Bld) [Entitic vol]Platelet mean volume [Entitic volume] in Blood by Automated count6.3-10.7FClermont County HospitalPlatelets Auto (Bld) [#/Vol] Ordered By: Roxane Bills on 18-90-1850Jwstotbqz (Bld) [#/Vol]Platelets [#/volume] in Blood by Automated mmjio465-725HqtefhsclMadison HealthPotassium [Moles/volume] in Serum or PlasmaOrdered By: Roxane Bills on 68-31-1775Ptjmuypgt [Moles/Vol]Potassium [Moles/volume] in Serum or Plasma3.5-5.1FClermont County HospitalProtein Electrophoresis, Serumon 30-64-4944Fugzcly [Mass/Vol]3.3 g/dLNormal2.9-4.4The [facility] Health Physician GroupComment on above:Performed By: #### FE and TIBC, CLEOPATRA, CBC, CMP ####[address]#### SPE, MITCH SERUM, KAPPA ####[facility] ,Albumin/Globulin [Mass ratio]0.8 {ratio}Normal0.7-1.7The [facility] Health Physician GroupComment on above:Performed By: #### FE and TIBC, CLEOPATRA, CBC, CMP ####[address]#### SPE, MITCH SERUM, KAPPA ####[facility] ,Vkmnd-5-Rdajpuaz0.3 g/dLNormal 0.0-0.4The [facility] Health Physician GroupComment on above:Performed By: #### FE and TIBC, CLEOPATRA, CBC, CMP ####[place] [address] [place]#### SPE, MITCH SERUM, KAPPA ####[facility] , Nhjhh-8-Bjrumtwq1.9 g/dLNormal0.4-1.0The [facility] Health Physician GroupComment on above:Performed By: #### FE and TIBC, CLEOPATRA, CBC, CMP ####[place] [address] [place]#### SPE, MITCH SERUM, KAPPA ####[facility] ,Beta Globulin1.2 g/dLNormal0.7-1.3The [facility] Health Physician GroupComment on above:Performed By: #### FE and TIBC, CLEOPATRA, CBC, CMP ####[place] [address] [place]#### SPE, MITCH SERUM, KAPPA ####[facility] ,Gamma Globulin1.7 g/dLNormal 0.4-1.8The [facility] Health Physician GroupComment on above:Performed By: #### FE and TIBC, CLEOPATRA, CBC, CMP ####[address]#### SPE, MITCH SERUM, KAPPA ####[facility] ,Globulin (S) [Mass/Vol]4.1 g/dLHigh2.2-3.9The [facility] Health Physician GroupComment on above: Performed By: #### FE and TIBC, CLEOPATRA, CBC, CMP ####[address]#### SPE, MITCH SERUM, KAPPA ####[facility] ,M-Spike0.9 g/dLHighNot ObservedThe [facility] Physician Group Comment on above:Performed By: #### FE and TIBC, CLEOPATRA, CBC, CMP ####[address]#### SPE, MITCH SERUM, KAPPA ####[facility] ,Protein [Mass/Vol]7.4 g/dLNormal6.0-8.5The [facility] Health Physician GroupComment on above:Performed By: #### FE and TIBC, CLEOPATRA, CBC, CMP ####[place] [address] [place]#### SPE, MITCH SERUM, KAPPA ####[facility] ,SPE-NoteCommentNormal. The [facility] Health Physician GroupComment on above:Result Comment: Protein electrophoresis scan will follow via computer, mail, or butt maker delivery. Pe rformed at: [facility] [address] [id number] Pan Washer Hand: Jhoan Rich PhD, Phone: [phone] By: #### FE and TIBC, CLEOPATRA, CBC, CMP ####[address] [place] [address] [facility]#### SPE, MITCH SERUM, KAPPA ####[facility] ,Protein [Mass/volume] in Serum or PlasmaOrdered By: Roxane Bills on 61-13-6090Tajbxha [Mass/Vol]Protein [Mass/volume] in Serum or Plasma6.0-8.5FClermont County HospitalRBC Auto (Bld) [#/Vol]Ordered By: Roxane Bills on 86-45-6587AQU (Bld) [#/Vol]Erythrocytes [#/volume] in Blood by Automated count3.60-5.00TriHealtherum free kappa light chain measurementOrdered By: Roxane Bills on 10-63-9802Iusxnwscrreoor light chains.kappa.free (S) [Mass/Vol] Immunoglobulin light chains.kappa.free [Mass/volume] in SerumHigh3.3-19.4 TriHealtherum globulin measurement (mass/volume)Ordered By: Roxane Bills on 93-60-8973Hqasqwsn (S) [Mass/Vol]Serum globulin measurement (mass/volume)High2.2-3.9TriHealtherum immunofixation electrophoresisOrdered By: Roxane Bills on 86-31-7861Hyyat ImmunofixationComment Abnormal.Madison HealthComment on above:Immunofixation shows IgG monoclonal protein with kappalight chain specificity. PLEASE NOTE: Samples from patients receiving DARZALEX(R)(daratumumab) or SARCLISA(R)(isatuximab-[facility] berea) treatmentcan appear as an IgG kappa and mask a complete response(CR). If this patient is receiving these therapies, thisIFE assay interference can be removed by ordering testnumber [id number]- Immunofixation, Daratumumab-Specific,Serum or 041850- Immunofixation, Isatuximab-Specific,Serum and submitting a new sample for testing or bycalling the lab to add this test to the current sample.Serum immunoglobulin free kappa light chains/immunoglobulin free lambda light chains Ordered By: Roxane Bills on 23-87-0357Yhvdvggozdqptx light chains.kappa.free/Immunoglobulin light chains.lambda.free (S) [Mass ratio] Immunoglobulin light chains.kappa.free/Immunoglobulin light chains.lambda.free [MassHigh0.26-1.65Madison HealthComment on above:Performed at: [facility] [id number] Director: Jhoan Rich PhD, Phone: [phone] or plasma IgA measurement (mass/volume)Ordered By: Roxane Bills on 83-92-6443BeG [Mass/Vol]IgA [Mass/volume] in Serum or JxclatJtqc70-002IlxenetspTriHealtherum or plasma IgG measurement (mass/volume)Ordered By: Roxane Bills on 35-68-5899VcO [Mass/Vol]IgG [Mass/volume] in Serum or ZhdgcpUuew167-3987AxuxfmexzMadison Health Serum or plasma IgM measurement (mass/volume)Ordered By: Roxane Bills on 02-24-2024 IgM [Mass/Vol]IgM [Mass/volume] in Serum or Rbwgec61-295YmqveupkoMadison HealthComment on above:Performed at: [facility] [id number] Director: Jhoan Rich PhD, Phone: [phone] Serum or plasma albumin measurement (mass/volume)Ordered By: Roxane Bills on 86-68-9964Lmenxdy [Mass/Vol]Albumin [Mass/volume] in Serum or Plasma2.9-4.4 TriHealtherum or plasma albumin/globulin mass ratio Ordered By: Roxane Bills on 73-05-6792Tgjipnq/Globulin [Mass ratio]Serum or plasma albumin/globulin mass ratio0.7-1.7FPaulding County Hospitalerum or plasma alpha 1 globulin measurement by electrophoresis (mass/volume)Ordered By: Roxane Bills on 20-92-4752Nawjs 1 globulin Elph [Mass/Vol]Serum or plasma alpha 1 globulin measurement by electrophoresis (mass/volume)0.0-0.4FPaulding County Hospitalerum or plasma alpha 2 globulin measurement by electrophoresis (mass/volume)Ordered By: Roxane Bills on 94-13-0380Jztsa 2 globulin Elph [Mass/Vol] Serum or plasma alpha 2 globulin measurement by electrophoresis (mass/volume) 0.4-1.0TriHealtherum or plasma anion gap determination Ordered By: Roxane Bills on 17-85-1027Dnfff gap [Moles/Vol]Serum or plasma anion gap determination6.0-15.0TriHealtherum or plasma beta globulin measurement by electrophoresis (mass/volume)Ordered By: Roxane Bills on 94-31-8339Ftnj globulin Elph [Mass/Vol]Serum or plasma beta globulin measurement by electrophoresis (mass/volume)0.7-1.3FPaulding County Hospitalerum or plasma gamma globulin measurement by electrophoresis (mass/volume)Ordered By: Roxane Bills on 73-34-6498Trgmc globulin Elph [Mass/Vol]Serum or plasma gamma globulin measurement by electrophoresis (mass/volume)0.4-1.8TriHealtherum or plasma immunoglobulin free lambda light chains measurement (mass/volume)Ordered By: Roxane Bills on 30-38-6476Vuhhqcqhojdsdy light chains.lambda.free [Mass/Vol]Immunoglobulin light chains.lambda.free [Mass/volume] in Serum or PlasmaHigh5.7-26.3FClermont County Hospital Serum or plasma iron binding capacity measurement (mass/volume)Ordered By: Roxane Bills on 28-67-1407Tpnl binding capacity [Mass/Vol]Iron binding capacity [Mass/volume] in Serum or Bzelax380-193OjhdadrzvTriHealtherum or plasma iron saturation measurement (mass fraction)Ordered By: Roxane Bills on 41-58-9995Plrq saturation [Mass fraction]Iron saturation [Mass Fraction] in Serum or NhsrnnVim40-47CtsbpyyusTriHealthodium [Moles/volume] in Serum or PlasmaOrdered By: Roxane Bills on 28-31-6266Hqvytg [Moles/Vol]Sodium [Moles/volume] in Serum or Xfvojv997-518HecwcxeahMadison Health Transferrin [Mass/volume] in Serum or PlasmaOrdered By: Roxane Bills on 02-24-2024 Transferrin [Mass/Vol]Transferrin [Mass/volume] in Serum or Rmmexc728-375 Madison HealthUrea nitrogen [Mass/volume] in Serum or Plasma Ordered By: Roxane Bills on 97-80-3778Odko nitrogen [Mass/Vol]Urea nitrogen [Mass/volume] in Serum or Plasma7-25Madison HealthWBC Auto (Bld) [#/Vol]Ordered By: Roxane Bills on 25-77-3389TPJ (Bld) [#/Vol]Leukocytes [#/volume] in Blood by Automated count3.8-11.6FClermont County Hospital Glucose (Bld) [Mass/Vol]Ordered By: Rossi Hurt on 67-60-7077Sqzirlw Blood, LAK979 mg/dLHedrick Medical CenterInterpretation and review of laboratory results AbnormalNOChristian Hospital FiixyenjthAlD0o (Bld) [Mass fraction]on 01-20-2024 Interpretation and review of laboratory resultsAbnormalAtrium Health AnsonLaboratory - Hematology and Cell countson 39-73-9875EbT1a (Bld) [Mass fraction]9.1 %[facility] HealthcareAlanine aminotransferase [Enzymatic activity/volume] in Serum or PlasmaOrdered By: Roxane Bills on 46-20-2881RQP [Catalytic activity/Vol]18 U/L7-52Madison HealthAlbumin [Mass/volume] in Serum or PlasmaOrdered By: Roxane Bills on 22-70-4794Stkexqx [Mass/Vol]3.6 g/dL2.9-4.4FClermont County HospitalAlbumin [Mass/volume] in Serum or Plasma by Bromocresol green (BCG) dye binding methoOrdered By: Roxane Bills on 17-41-6447Cfwmlxr BCG dye [Mass/Vol]4.0 g/dL3.5-5.7FClermont County HospitalAlkaline phosphatase [Enzymatic activity/volume] in Serum or PlasmaOrdered By: Roxane Bills on 04-81-4264HLE [Catalytic activity/Vol]133 U/L 34-104Madison HealthAspartate aminotransferase [Enzymatic activity/volume] in Serum or PlasmaOrdered By: Roxane Bills on 59-76-3609WMQ [Catalytic activity/Vol]20 U/O76-77NqgczddneMadison HealthBasophils Auto (Bld) [#/Vol]Ordered By: Roxane Bills on 91-48-6887Dyxtpxsai (Bld) [#/Vol]0.1 10*3/uL0.0-0.2FClermont County HospitalBasophils/100 WBC Auto (Bld) Ordered By: Roxane Bills on 95-78-2477Hktbglfhc/100 WBC (Bld)0.6 %.Madison HealthBilirubin.total [Mass/volume] in Serum or PlasmaOrdered By: Roxane Bills on 26-67-8212Olhuildlb [Mass/Vol]0.3 mg/dL0.3-1.0Madison HealthCalcium [Mass/volume] in Serum or PlasmaOrdered By: Roxane Bills on 23-97-5001Zoljiio [Mass/Vol]9.1 mg/dL8.6-10.3FClermont County HospitalCarbon dioxide, total [Moles/volume] in Serum or PlasmaOrdered By: Roxane Bills on 63-62-0961DO4 [Moles/Vol]36.2 mmol/L21.0-31.0Madison HealthChloride [Moles/volume] in Serum or PlasmaOrdered By: Roxane Bills on 62-78-4332Qeyhvdvo [Moles/Vol]97 mmol/O39-397ZgszslssfMadison Health Creatinine [Mass/volume] in Serum or PlasmaOrdered By: Roxane Bills on 08-24-2023 Creatinine [Mass/Vol]1.41 mg/dL0.60-1.20[facility] Eosinophils Auto (Bld) [#/Vol]Ordered By: Roxane Bills on 15-50-1305Ulwudrroaok (Bld) [#/Vol]0.6 10*3/uL0.0-0.45Madison HealthEosinophils/100 WBC Auto (Bld)Ordered By: Roxane Bills on 56-15-3367Palmogvkegj/100 WBC (Bld)5.5 % .Madison HealthErythrocyte distribution width Auto (RBC) [Ratio]Ordered By: Roxane Bills on 19-44-5614Xdxhtrtbtqj distribution width (RBC) [Ratio]14.4 %11.9-15.3FClermont County HospitalFerritin [Mass/volume] in Serum or PlasmaOrdered By: Roxane Bills on 78-86-1974Ayvuhmde [Mass/Vol]111.9 ng/mL11.0-306.8Madison HealthGlobulin Calc (S) [Mass/Vol] Ordered By: Roxane Bills on 72-25-4656Jikjagqw (S) [Mass/Vol]3.8 g/dLMadison HealthGlucose [Mass/volume] in Serum or PlasmaOrdered By: Roxane Garibayse on 71-32-2713Cxkiuqb [Mass/Vol]86 mg/mS47-997JauaxfijwMadison HealthComment on above:ADA recommended reference rangeRandom Glucose Reference Range is dependent on time and content of last meal. Glucose of more than 200 mg/dL in a nonstressed, ambulatory subject supports the diagnosisof Diabetes Mellitus.Hematocrit Auto (Bld) [Volume fraction]Ordered By: Roxane Bills on 06-56-8934Pevucpdpda (Bld) [Volume fraction]40.0 %34.0-46.4FClermont County HospitalHemoglobin [Mass/volume] in BloodOrdered By: Roxane Bills on 90-06-1881Ilqngqakjf (Bld) [Mass/Vol]13.1 g/dL11.8-15.4FClermont County HospitalIgA [Mass/volume] in Serum or PlasmaOrdered By: Roxane Bills on 38-03-3110JoW [Mass/Vol]604 mg/yH68-507LfezccudqMadison HealthIgG [Mass/volume] in Serum or PlasmaOrdered By: Roxane Sanju on 67-24-1048QnA [Mass/Vol]1722 mg/kJ355-2393QvhifzaskMadison HealthIgM [Mass/volume] in Serum or PlasmaOrdered By: Roxane Bills on 87-02-3622XdZ [Mass/Vol]94 mg/dL 26-217Madison HealthComment on above:Performed at: [facility] Lab[address] [id number] Director: Jhoan Rich PhD, Phone: [phone] [Mass/volume] in Serum or PlasmaOrdered By: Roxane Bills on 56-65-6121Fcqu [Mass/Vol]57 ug/mY77-337HxxmfxpgzMadison HealthIron binding capacity [Mass/volume] in Serum or PlasmaOrdered By: Roxane Bills on 48-85-9729Lhhr binding capacity [Mass/Vol]354 ug/zR732-199IfacbqhutMadison HealthIron saturation [Mass Fraction] in Serum or PlasmaOrdered By: Roxane Bills on 94-50-7332Anzn saturation [Mass fraction]16.1 %20-50Madison HealthLaboratory - Chemistry and Chemistry - challengeOrdered By: Roxane Bills on 42-17-7746Fkltjqi [Mass/Vol]0.8 g/dLNot ObservedMadison HealthLeukocytes [#/volume] corrected for nucleated erythrocytes in Blood by Automated counOrdered By: Roxane Bills on 05-29-9204DUF corrected for nucl RBC Auto (Bld) [#/Vol]11.3 10*3/uL3.8-11.6FClermont County HospitalLymphocytes Auto (Bld) [#/Vol]Ordered By: Roxane Bills on 08-24-2023 Lymphocytes (Bld) [#/Vol]2.5 10*3/uL1.00-4.8[facility] Lymphocytes/100 WBC Auto (Bld)Ordered By: Roxane Bills on 13-72-0493Dzwaxktxtao/100 WBC (Bld)22.1 %.[facility] Auto (RBC) [Entitic mass] Ordered By: Roxane Bills on 37-67-2475SGG (RBC) [Entitic mass]29.1 pg24.7-34.3 [facility]HC Auto (RBC) [Mass/Vol]Ordered By: Roxane Bills on 69-14-7160VXUW (RBC) [Mass/Vol]32.6 g/dL32.0-35.0Madison HealthMCV Auto (RBC) [Entitic vol]Ordered By: Roxane Bills on 63-68-2701EUV (RBC) [Entitic vol]89.1 zE73-972BvkorbqrpMadison HealthMonocytes Auto (Bld) [#/Vol]Ordered By: Roxane Bills on 14-88-6259Qwrejamim (Bld) [#/Vol]1.1 10*3/uL 0.0-0.8Madison HealthMonocytes/100 WBC Auto (Bld)Ordered By: Roxane Bills on 60-72-9713Vzsmsfigh/100 WBC (Bld)9.6 %.[facility] HealthNeutrophils Auto (Bld) [#/Vol]Ordered By: Roxane Bills on 08-24-2023 Neutrophils (Bld) [#/Vol]7.1 10*3/uL1.8-7.7FClermont County Hospital Neutrophils/100 WBC Auto (Bld)Ordered By: Roxane Bills on 72-75-0320Leyweogmksc/100 WBC (Bld)62.2 %.[facility] HealthNo Panel InformationOrdered By: Roxane Bills on 66-36-6375Jzmbisnzy GFR (CKD-EPI)41.654 mL/MinMadison HealthPharmacy Creatinine Clearance (ChemN/AFClermont County HospitalProtein Electrophoresis NoteSee comment.Madison HealthComment on above:Protein electrophoresis scan will follow via computer,mail, or butt maker delivery.Performed at: [place] [id number] Director: Jhoan Rich PhD, Phone: [phone] Serum ImmunofixationSee comment.Madison HealthComment on above:Immunofixation shows IgG monoclonal protein with kappalight chain specificity. PLEASE NOTE: Samplesfrom patients receiving DARZALEX(R)(daratumumab) or SARCLISA(R)(isatuximab-irfc) treatmentcan appear as an IgG kappa and mask a complete response(CR). If this patient is receiving these therapies, thisIFE assay interference can be removed by ordering testnumber [id number]- Immunofixation, Daratumumab-Specific,Serum or 080349- Immunofixation, Isatuximab-Specific,Serum and submitting a new sample for testing or bycalling the lab to add this test to the current sample.Nucleated erythrocytes [Presence] in Blood by Automated countOrdered By: Roxane Bills on 99-47-8774Rtyaftrxy RBC Auto Ql (Bld)0.1 /100{WBC}0-0.5FClermont County HospitalPlatelet mean volume Auto (Bld) [Entitic vol]Ordered By: Roxane Bills on 83-22-9236Eslkecdf mean volume (Bld) [Entitic vol]7.2 fL6.3-10.7FClermont County HospitalPlatelets Auto (Bld) [#/Vol]Ordered By: Roxane Bills on 27-84-2074Hwfqihyfw (Bld) [#/Vol]320 10*3/jZ046-557IqppwotgrMadison HealthPotassium [Moles/volume] in Serum or PlasmaOrdered By: Roxane Bills on 24-01-7463Oyeoqetgc [Moles/Vol]4.2 mmol/L3.5-5.1FClermont County HospitalProtein [Mass/volume] in Serum or PlasmaOrdered By: Roxane Bills on 82-42-8752Uoudpen [Mass/Vol]7.8 g/dL6.4-8.9[facility] Protein [Mass/Vol]7.6 g/dL6.0-8.5FClermont County HospitalRBC Auto (Bld) [#/Vol]Ordered By: Roxane Bills on 18-64-7144ZOX (Bld) [#/Vol]4.49 10*6/uL 3.60-5.00TriHealtherum globulin measurement (mass/volume)Ordered By: Roxane Bills on 75-82-0311Nnqzgniy (S) [Mass/Vol]4.0 g/dL 2.2-3.9TriHealtherum or plasma albumin/globulin mass ratioOrdered By: Roxane Bills on 85-97-0530Fwlcxwe/Globulin [Mass ratio]1.1 {ratio} Madison HealthAlbumin/Globulin [Mass ratio]0.9 {ratio}0.7-1.7 TriHealtherum or plasma alpha 1 globulin measurement by electrophoresis (mass/volume)Ordered By: Roxane Bills on 35-73-9926Hynqy 1 globulin Elph [Mass/Vol]0.2 g/dL0.0-0.4FPaulding County Hospitalerum or plasma alpha 2 globulin measurement by electrophoresis (mass/volume)Ordered By: Roxane Bills on 06-57-7234Pinao 2 globulin Elph [Mass/Vol]0.9 g/dL0.4-1.0TriHealtherum or plasma anion gap determinationOrdered By: Roxane Bills on 74-32-8910Oxqvg gap [Moles/Vol]13.0 mmol/L6.0-15.0TriHealtherum or plasma beta globulin measurement by electrophoresis (mass/volume)Ordered By: Roxane Bills on 73-21-0383Owsf globulin Elph [Mass/Vol]1.2 g/dL0.7-1.3FPaulding County Hospitalerum or plasma gamma globulin measurement by electrophoresis (mass/volume)Ordered By: Roxane Bills on 08-24-2023 Gamma globulin Elph [Mass/Vol]1.7 g/dL0.4-1.8[facility] Sodium [Moles/volume] in Serum or PlasmaOrdered By: Roxane Bills on 08-24-2023 Sodium [Moles/Vol]142 mmol/C145-762GvafdtsikMadison HealthTransferrin [Mass/volume] in Serum or PlasmaOrdered By: Roxane Bills on 40-26-6676Pbtmvfcresv [Mass/Vol]253 mg/oQ509-443OlnoesbziMadison HealthUrea nitrogen [Mass/volume] in Serum or PlasmaOrdered By: Roxane Bills on 34-84-4530Sruq nitrogen [Mass/Vol]21 mg/dL7-25Madison HealthWBC Auto (Bld) [#/Vol] Ordered By: Roxane Bills on 43-63-7400ACX (Bld) [#/Vol]11.3 10*3/uL3.8-11.6 [facility] HealthThyrotropin [Units/volume] in Serum or Plasma Ordered By: Peri Tyson on 68-88-2146MWU Qn4.88 m[IU]/L0.45-5.33Madison HealthAlbumin [Mass/volume] in Serum or Plasma by Bromocresol green (BCG) dye binding methoOrdered By: Jeannie Aguilar on 06-68-1458Igkblja BCG dye [Mass/Vol]4.0 g/dL3.5-5.7FClermont County HospitalCalcium [Mass/volume] in Serum or PlasmaOrdered By: Jeannie Aguilar on 07-73-9256Hozoqhu [Mass/Vol]9.4 mg/dL8.6-10.3FClermont County HospitalCarbon dioxide, total [Moles/volume] in Serum or PlasmaOrdered By: Jeannie Aguilar on 07-31-2023 CO2 [Moles/Vol]31.7 mmol/L21.0-31.0Mad[facility] HealthChloride [Moles/volume] in Serum or PlasmaOrdered By: Jeannie Aguilar on 59-44-5596Qnwwdaob [Moles/Vol]100 mmol/O07-365QkztjeteqMadison HealthCholesterol [Mass/volume] in Serum or PlasmaOrdered By: Jeannie Aguilar on 07-31-2023 Cholesterol [Mass/Vol]134 mg/jR536-852VejltywokMadison HealthComment on above:Chol less than 200 mg/dl low riskChol 201-239 mg/dl borderline riskChol 240 mg/dl and greater high riskCholesterol in LDL Calc [Mass/Vol]Ordered By: Jeannie Aguilar on 91-17-3930Nquhujqmbao in LDL [Mass/Vol]71 mg/dL0-100Madison HealthComment on above:LDL ATP III CLASSIFICATIONLDL less than 100 mg/dL OptimalLDL 100-129 mg/dL Near or above hussqwuVTB754-329 mg/dL Borderline highLDL 160-189 mg/dL HighLDL greater than 189 mg/dL Very high Cholesterol in VLDL Calc [Mass/Vol]Ordered By: Jeannie Aguilar on 07-31-2023 Cholesterol in VLDL [Mass/Vol]17 mg/dLMadison Health Creatinine [Mass/volume] in Serum or PlasmaOrdered By: Jeannie Aguilar 45-15-8255Chkrdqtcst [Mass/Vol]1.52 mg/dL0.60-1.20Mad[facility] HealthCreatinine [Mass/volume] in UrineOrdered By: Jeannie Aguilar on 07-31-2023 Creatinine (U) [Mass/Vol]33.0 mg/dLMadison HealthComment on above:No reference range establishedGlucose [Mass/volume] in Serum or Plasma Ordered By: Jeannie Aguilar on 95-11-5537Epvvcou [Mass/Vol]154 mg/sC07-839 Madison HealthComment on above:ADA recommended reference rangeRandom Glucose Reference Range is dependent on time and content of last meal. Glucose of more than 200 mg/dL in a nonstressed, ambulatory subject supports the diagnosisof Diabetes Mellitus.Microalbumin [Mass/volume] in Urine Ordered By: Jeannie Aguilar on 08-75-4784Kzhabqf DL <= 20 mg/L (U) [Mass/Vol]mg/dL 0.0-1.8[facility] HealthNo Panel InformationOrdered By: Jeannie Aguilar on 71-52-5059Dwhzstshn GFR (CKD-EPI)38.064 mL/MinMadison HealthPharmacy Creatinine Clearance (ChemN/[facility] SystemPhosphate [Mass/volume] in Serum or PlasmaOrdered By: Jeannie Aguilar on 19-70-3860Frydbbahn [Mass/Vol]4.5 mg/dL2.5-4.5FClermont County Hospital Potassium [Moles/volume] in Serum or PlasmaOrdered By: Jeannie Aguilar 40-19-3582Nlfatpjek [Moles/Vol]4.1 mmol/L3.5-5.1FPaulding County Hospitalerum or plasma anion gap determinationOrdered By: Jeannie Aguilar 15-36-3690Tvrva gap [Moles/Vol]13.4 mmol/L6.0-15.0TriHealtherum or plasma high density lipoprotein (HDL) cholesterol measurement Ordered By: Jeannie Aguilar 74-81-5764Kbliarbfldm in HDL [Mass/Vol]45 mg/dL 23-92Madison HealthComment on above:HDL CHOL ATP-III CLASSIFICATION Cardiovascular RiskHDL > or equal to 60 mg/dL LOWHDL < 40 mg/dL HIGHSerum or plasma total cholesterol/high density lipoprotein (HDL) cholesterol mass ratOrdered By: Jeannie Aguilar 68-66-1434Psuridshcgu.total/Cholesterol in HDL [Mass ratio]3.0 {ratio}<5.0TriHealthodium [Moles/volume] in Serum or PlasmaOrdered By: Jeannie Aguilar 70-69-0515Eyvxoj [Moles/Vol]141 mmol/X808-063ArhqspefoMadison HealthTriglyceride [Mass/volume] in Serum or PlasmaOrdered By: Jeannie Aguilar on 07-31-2023 Triglyceride [Mass/Vol]89 mg/dL0-149Madison HealthComment on above:TRIG ATP III CLASSIFICATIONTRIG less than 150 mg/dL NormalTRIG 150-199 mg/dL Borderline highTRIG 200-500 mg/dL High TRIG greater than 500 mg/dL Very highStandard traceable to the Center for Disease Conrtrol and Prevention (CDC) test method.Urea nitrogen [Mass/volume] in Serum or PlasmaOrdered By: Jeannie Aguilar on 93-88-8149Mwge nitrogen [Mass/Vol]26 mg/dL7-25Mad[facility] HealthUrine microalbumin/creatinine mass ratioOrdered By: Jeannie Aguilar on 01-30-3041Uglqxkl/Creatinine DL <= 20 mg/L (U) [Mass ratio]TNPMadison HealthComment on above:Test not performedVitamin D+Metabolites [Mass/volume] in Serum or PlasmaOrdered By: Jeannie Aguilar on 46-86-7307Uzuxjou D+Metabolites [Mass/Vol]57.3 ng/yY81-674IerrsxcgbMadison HealthComment on above:VITAMIN D STATUS 25(OH)VITAMIN D RANGE (ng/mL) Deficient <20 Insufficient 20 to <26Trbflhchgk80 to 100Reference: [place] SMALLS,Vanessa GONZALEZ, Caesar ASIF, et al. Evaluation,treatment, and prevention of vitamin D deficiency; an Endocrine Society clinical practice guideline. JCEM. 2010; 96 (7):1911-30.Activated partial thromboplastin time (aPTT) in platelet poor plasma by coagulation aOrdered By: Roxane Bills on 81-64-4965wTJA Coag (PPP) [Time]23.4 s 25.1-36.5FClermont County HospitalComment on above:A hematocrit value greater than 55% may lead to inaccurate results in coagulation testing. Patients having hematocrit values >55% require a special collection tube for coagulation studies. Please contact the laboratory at [phone] for redraw instructions. Basophils Auto (Bld) [#/Vol]Ordered By: Roxane Bills on 73-58-6650Iywdvngff (Bld) [#/Vol]0.1 10*3/uL0.0-0.2FClermont County HospitalBasophils/100 WBC Auto (Bld)Ordered By: Roxane Bills on 72-44-5027Iwmxxiwlk/100 WBC (Bld)1.3 %.[facility] HealthEosinophils Auto (Bld) [#/Vol]Ordered By: Roxane Bills on 37-98-4033Idrcubafjoz (Bld) [#/Vol]0.9 10*3/uL0.0-0.45Mad[facility] HealthEosinophils/100 WBC Auto (Bld)Ordered By: Roxane Bills on 02-12-2023 Eosinophils/100 WBC (Bld)7.7 %.[facility] HealthErythrocyte distribution width Auto (RBC) [Ratio]Ordered By: Roxane Bills on 02-12-2023 Erythrocyte distribution width (RBC) [Ratio]14.1 %11.9-15.3FClermont County HospitalHematocrit Auto (Bld) [Volume fraction]Ordered By: Roxane Bills on 14-48-9591Vmafobxcwr (Bld) [Volume fraction]38.9 %34.0-46.4FClermont County HospitalHemoglobin [Mass/volume] in BloodOrdered By: Roxane Bills on 66-65-7760Lwjvchgvhx (Bld) [Mass/Vol]12.8 g/dL11.8-15.4FClermont County HospitalINR in Platelet poor plasma by Coagulation assayOrdered By: Roxane Bills on 16-53-7296OZW Coag (PPP) [Relative time]1.0 {INR}Mad[facility] HealthComment on above:INR Therapeutic Range A) Pre- [...] by Automated counOrdered By: Roxane Bills on 25-28-3556XRW corrected for nucl RBC Auto (Bld) [#/Vol]11.7 10*3/uL3.8-11.6 [facility] HealthLymphocytes Auto (Bld) [#/Vol]Ordered By: Roxane Bills on 02-44-4097Zecuvputjiw (Bld) [#/Vol]2.8 10*3/uL1.00-4.8[facility] HealthLymphocytes/100 WBC Auto (Bld)Ordered By: Roxane Bills on 38-04-3044Rhvnasxfypf/100 WBC (Bld)24.2 %.[facility]H Auto (RBC) [Entitic mass]Ordered By: Roxane Bills on 41-46-2472CHQ (RBC) [Entitic mass]30.0 pg24.7-34.3FClermont County HospitalMCHC Auto (RBC) [Mass/Vol] Ordered By: Roxane Bills on 75-31-5987IJQP (RBC) [Mass/Vol]32.9 g/dL32.0-35.0 [facility] HealthMCV Auto (RBC) [Entitic vol]Ordered By: Roxane Bills on 75-86-3319GOK (RBC) [Entitic vol]91.2 mP85-650AeehqidqaMadison HealthMonocytes Auto (Bld) [#/Vol]Ordered By: Roxane Bills on 02-12-2023 Monocytes (Bld) [#/Vol]1.0 10*3/uL0.0-0.8[facility] Monocytes/100 WBC Auto (Bld)Ordered By: Roxane Bills on 60-08-4663Ajabvocbu/100 WBC (Bld)9.0 %.[facility] HealthNeutrophils Auto (Bld) [#/Vol] Ordered By: Roxane Bills on 23-03-8369Rjsqbojyalw (Bld) [#/Vol]6.8 10*3/uL1.8-7.7 [facility] HealthNeutrophils/100 WBC Auto (Bld)Ordered By: Roxane Bills on 47-95-6460Bmvhelrwkfp/100 WBC (Bld)57.8 %.[facility] HealthNucleated erythrocytes [Presence] in Blood by Automated countOrdered By: Roxane Bills on 28-65-2073Qwxlmwwxa RBC Auto Ql (Bld)0.1 /100{WBC}0-0.5FClermont County HospitalPlatelet mean volume Auto (Bld) [Entitic vol]Ordered By: Roxane Bills on 16-25-9700Hodydnct mean volume (Bld) [Entitic vol]7.0 fL6.3-10.7 [facility] HealthPlatelets Auto (Bld) [#/Vol]Ordered By: Roaxne Bills on 45-55-1335Xagaismdu (Bld) [#/Vol]334 10*3/dT281-562JylczucdhMadison HealthProthrombin time (PT)Ordered By: Roxane Bills on 64-52-3231VD Coag (PPP) [Time]12.4 s9.0-12.9Mad[facility] HealthComment on above:A hematocrit value greater than 55% may lead to inaccurate results in coagulation testing. Patientshaving hematocrit values >55% require a special collection tube for coagulation studies. Please contact the laboratory at [phone] for redraw instructions.RBC Auto (Bld) [#/Vol]Ordered By: Roxane Bills on 88-47-7661HMM (Bld) [#/Vol]4.27 10*6/uL3.60-5.00[facility] HealthWBC Auto (Bld) [#/Vol]Ordered By: Roxane Bills on 65-22-8226HJU (Bld) [#/Vol]11.7 10*3/uL 3.8-11.6FClermont County HospitalAlanine aminotransferase [Enzymatic activity/volume] in Serum or PlasmaOrdered By: Roxane Bills on 17-50-7222AHG [Catalytic activity/Vol]47 U/L7-52Mad[facility] HealthAlbumin [Mass/volume] in Serum or Plasma by Bromocresol green (BCG) dye binding metho Ordered By: Roxane Bills on 28-48-9022Dbwkwbu BCG dye [Mass/Vol]3.7 g/dL3.5-5.7 [facility] HealthAlkaline phosphatase [Enzymatic activity/volume] in Serum or PlasmaOrdered By: Roxane Bills on 08-20-5407OBM [Catalytic activity/Vol]169 U/YNvsv61-128KhykhizocMadison Health Aspartate aminotransferase [Enzymatic activity/volume] in Serum or PlasmaOrdered By: Roxane Bills on 58-86-8087QDU [Catalytic activity/Vol]48 U/LRpsg44-17PmdwpoxfqMadison HealthBasophils Auto (Bld) [#/Vol]Ordered By: Roxane Bills on 53-81-0667Qqgdnmccd (Bld) [#/Vol]0.1 10*3/uL0.0-0.2FClermont County HospitalBasophils/100 WBC Auto (Bld)Ordered By: Roxane Bills on 01-22-2023 Basophils/100 WBC (Bld)0.5 %.[facility] HealthBilirubin.total [Mass/volume] in Serum or PlasmaOrdered By: Roxane Bills on 39-30-9159Zpgxdbjqe [Mass/Vol]0.4 mg/dL0.3-1.0[facility] HealthCalcium [Mass/volume] in Serum or PlasmaOrdered By: Roxane Bills on 98-62-2462Pwcgmhe [Mass/Vol]8.6 mg/dL8.6-10.3FClermont County HospitalCarbon dioxide, total [Moles/volume] in Serum or PlasmaOrdered By: Roxane Bills on 38-84-4694KO0 [Moles/Vol]32.1 mmol/LHigh21.0-31.0[facility] HealthChloride [Moles/volume] in Serum or PlasmaOrdered By: Roxane Bills on 78-45-6595Ydjrwapd [Moles/Vol]100 mmol/C36-169GjgunajtwMadison HealthCreatinine [Mass/volume] in Serum or PlasmaOrdered By: Roxane Bills on 68-28-6816Rkwexxcuou [Mass/Vol]1.37 mg/dLHigh0.60-1.20[facility] HealthEosinophils Auto (Bld) [#/Vol]Ordered By: Roxane Bills on 32-20-6627Srlvpovndoe (Bld) [#/Vol] 0.5 10*3/uLHigh0.0-0.45[facility] HealthEosinophils/100 WBC Auto (Bld)Ordered By: Roxane Bills on 80-06-2410Wwnfqvwzltn/100 WBC (Bld)4.2 %. [facility] HealthErythrocyte distribution width Auto (RBC) [Ratio]Ordered By: Roxane Bills on 12-87-0427Prlbptudrbv distribution width (RBC) [Ratio]14.2 %11.9-15.3FClermont County HospitalFerritin [Mass/volume] in Serum or PlasmaOrdered By: Roxane Bills on 57-89-2861Mrhxnrig [Mass/Vol]192.2 ng/mL11.0-306.8[facility] HealthGlobulin Calc (S) [Mass/Vol] Ordered By: Roxane Bills on 08-87-1087Xbfmahex (S) [Mass/Vol]4.2 g/dLMadison HealthGlucose [Mass/volume] in Serum or PlasmaOrdered By: Roxane Bills on 85-70-2167Molsqfi [Mass/Vol]199 mg/nNTchd60-153QflewvjdjMadison HealthComment on above:ADA recommended reference rangeRandom Glucose Reference Range is dependent on time and content of last meal. Glucose of more than 200 mg/dL in a nonstressed, ambulatory subject supports the diagnosisof Diabetes Mellitus.Hematocrit Auto (Bld) [Volume fraction]Ordered By: Roxane Bills on 39-33-0757Ocgidvkvnz (Bld) [Volume fraction]37.8 %34.0-46.4FClermont County HospitalHemoglobin [Mass/volume] in BloodOrdered By: Roxane Bills on 57-86-6353Kdutypzdmw (Bld) [Mass/Vol]12.3 g/dL11.8-15.4FClermont County HospitalIgA [Mass/volume] in Serum or PlasmaOrdered By: Roxane Bills on 79-69-7205ShS [Mass/Vol]669 mg/gJWwwd94-149BgtfcykgwMadison HealthIgG [Mass/volume] in Serum or PlasmaOrdered By: Roxane Bills on 85-43-3316PfG [Mass/Vol]1764 mg/dZNcfw341-3839VthsljgvhMadison HealthIgM [Mass/volume] in Serum or PlasmaOrdered By: Roxane Bills on 88-17-7246BaW [Mass/Vol]107 mg/wZ10-378KeposjhseMadison HealthComment on above: Performed at: [facility] [address] [id number] Director: Jhoan Rich PhD, Phone: [phone] light chains.kappa.free [Mass/volume] in SerumOrdered By: oRxane Bills on 01-22-2023 Immunoglobulin light chains.kappa.free (S) [Mass/Vol]237.9 mg/LHigh3.3-19.4 [facility] HealthImmunoglobulin light chains.kappa.free/Immunoglobulin light chains.lambda.free [MassOrdered By: Roxane Bills on 88-97-7591Wljqelyfrngvnk light chains.kappa.free/Immunoglobulin light chains.lambda.free (S) [Mass ratio]6.82Dumv3.26-1.65[facility] HealthComment on above:Performed at: [facility] [id number] Director: Jhoan Rich PhD, Phone: [phone] Immunoglobulin light chains.lambda.free [Mass/volume] in Serum or PlasmaOrdered By: Roxane Bills on 05-45-1953Snrrjxgvsogoda light chains.lambda.free [Mass/Vol] 38.0 mg/LHigh5.7-26.3FClermont County HospitalIron [Mass/volume] in Serum or PlasmaOrdered By: Roxane Bills on 94-14-5165Pebd [Mass/Vol]74 ug/rA42-797 [facility] HealthIron binding capacity [Mass/volume] in Serum or PlasmaOrdered By: Roxane Bills on 74-49-5139Khew binding capacity [Mass/Vol]311 ug/tO667-903PspttqwacMadison HealthIron saturation [Mass Fraction] in Serum or PlasmaOrdered By: Roxane Bills on 33-82-1680Sqnq saturation [Mass fraction]23.8 %20-50Mad[facility] HealthLeukocytes [#/volume] corrected for nucleated erythrocytes in Blood by Automated counOrdered By: Roxane Bills on 68-85-3366LIW corrected for nucl RBC Auto (Bld) [#/Vol]12.4 10*3/uLHigh 3.8-11.6FClermont County HospitalLymphocytes Auto (Bld) [#/Vol]Ordered By: Roxane Bills on 80-39-7944Yxngznxvekt (Bld) [#/Vol]3.2 10*3/uL1.00-4.8[facility] HealthLymphocytes/100 WBC Auto (Bld)Ordered By: Roxane Bills on 22-61-6225Mfhhlwltbmm/100 WBC (Bld)25.5 %.[facility] HospitalH Auto (RBC) [Entitic mass]Ordered By: Roxane iBlls on 52-67-9912CHK (RBC) [Entitic mass]30.0 pg24.7-34.3FOhioHealth Doctors HospitalHC Auto (RBC) [Mass/Vol] Ordered By: Roxane Bills on 50-48-2972RBIY (RBC) [Mass/Vol]32.7 g/dL32.0-35.0 [facility] HealthMCV Auto (RBC) [Entitic vol]Ordered By: Roxane Bills on 96-60-9172III (RBC) [Entitic vol]91.9 tW41-542YlmbllknwMadison HealthMonocytes Auto (Bld) [#/Vol]Ordered By: Roxane Bills on 01-22-2023 Monocytes (Bld) [#/Vol]0.7 10*3/uL0.0-0.8[facility] Monocytes/100 WBC Auto (Bld)Ordered By: Roxane Bills on 93-49-6758Zcyfnjmrz/100 WBC (Bld)5.6 %.[facility] HealthNeutrophils Auto (Bld) [#/Vol] Ordered By: Roxane Bills on 92-46-5612Prqxrlidbjy (Bld) [#/Vol]8.0 10*3/uLHigh 1.8-7.7FClermont County HospitalNeutrophils/100 WBC Auto (Bld)Ordered By: Roxane Bills on 54-81-5477Xkaficpfbtd/100 WBC (Bld)64.2 %.[facility] HealthNo Panel InformationOrdered By: Roxane Bills on 87-55-5594Jpxmlmfce GFR (CKD-EPI)43.118 mL/MinMadison HealthPharmacy Creatinine Clearance (Chem44.97TriHealtherum ImmunofixationSee commentAbnormal.Madison HealthComment on above:Immunofixation shows IgG monoclonal protein with kappalight chain specificity. PLEASE NOTE: Samplesfrom patients receiving DARZALEX(R)(daratumumab) or SARCLISA(R)(isatuximab-irfc) treatmentcan appear as an IgG kappa and mask a complete response(CR). If this patient is receiving these therapies, thisIFE assay interference can be removed by ordering testnumber [id number]- Immunofixation, Daratumumab-Specific,Serum or 126347- Immunofixation, Isatuximab- Specific,Serum and submitting a new sample for testing or bycalling the lab to add this test to the current sample.Nucleated erythrocytes [Presence] in Blood by Automated countOrdered By: Roxane Bills on 78-15-3317Fzmkqnfoc RBC Auto Ql (Bld) 0.0 /100{WBC}0-0.5FClermont County HospitalPlatelet mean volume Auto (Bld) [Entitic vol]Ordered By: Roxane Bills on 95-00-7825Dxrwthjy mean volume (Bld) [Entitic vol]7.0 fL6.3-10.7FClermont County HospitalPlatelets Auto (Bld) [#/Vol]Ordered By: Roxane Bills on 46-84-2555Rhmtowpvc (Bld) [#/Vol]299 10*3/uL 150-450Mad[facility] HealthPotassium [Moles/volume] in Serum or PlasmaOrdered By: Roxane Bills on 25-79-0417Lrqpjfxyk [Moles/Vol]4.2 mmol/L3.5-5.1 [facility] HealthProtein [Mass/volume] in Serum or PlasmaOrdered By: Roxane Bills on 56-78-3369Xkvfxgg [Mass/Vol]7.9 g/dL6.4-8.9[facility] HealthRBC Auto (Bld) [#/Vol]Ordered By: Roxane Bills on 92-24-0680LIK (Bld) [#/Vol]4.11 10*6/uL3.60-5.00TriHealtherum or plasma albumin/globulin mass ratioOrdered By: Roxane Bills on 58-89-1364Ysgpswf/Globulin [Mass ratio]0.9 {ratio}TriHealtherum or plasma anion gap determinationOrdered By: Roxane Bills on 44-60-2351Eoqdc gap [Moles/Vol]13.1 mmol/L6.0-15.0TriHealthodium [Moles/volume] in Serum or PlasmaOrdered By: Roxane Bills on 47-89-0322Fzkgds [Moles/Vol]141 mmol/S094-165 [facility] HealthTransferrin [Mass/volume] in Serum or Plasma Ordered By: Roxane Bills on 37-16-9231Hfpdisbteuc [Mass/Vol]222 mg/wJ846-503 [facility] HealthUrea nitrogen [Mass/volume] in Serum or Plasma Ordered By: Roxane Bills on 32-32-3556Vnlc nitrogen [Mass/Vol]13 mg/dL7-25[facility] HealthWBC Auto (Bld) [#/Vol]Ordered By: Roxane Bills on 77-26-1073MTC (Bld) [#/Vol]12.4 10*3/uLHigh3.8-11.6FClermont County HospitalGlucose Glucometer (BldC) [Mass/Vol]Ordered By: Nik Pineda on 48-34-0601Ygfwvhq [Mass/Vol]202 mg/dLMadison HealthComment on above:Random Glucose Reference Range is dependent on time and content of last meal. Glucose of more than 200 mg/dL in a nonstressed, ambulatory subject supports the diagnosis of Diabetes Mellitus.No Panel InformationOrdered By: Nik Pineda on 67-26-6980Cvovsbf Glucose CommentGlu2: cleaned meterMadison HealthAlbumin [Mass/volume] in Serum or Plasma by Bromocresol green (BCG) dye binding methoOrdered By: Jeannie Aguilar on 65-58-4170Eqyjqkh BCG dye [Mass/Vol]3.8 g/dL3.5-5.7FClermont County HospitalCalcium [Mass/volume] in Serum or PlasmaOrdered By: Jeannie Aguilar on 97-47-8458Utxambz [Mass/Vol]9.2 mg/dL8.6-10.3FClermont County HospitalCarbon dioxide, total [Moles/volume] in Serum or PlasmaOrdered By: Jeannie Aguilar on 08-07-2022 CO2 [Moles/Vol]32.6 mmol/L21.0-31.0[facility] HealthChloride [Moles/volume] in Serum or PlasmaOrdered By: Jeannie Aguilar on 40-06-1187Dsftebxo [Moles/Vol]104 mmol/G35-387YrwdcszejMadison HealthCholesterol [Mass/volume] in Serum or PlasmaOrdered By: Jeannie Aguialr on 08-07-2022 Cholesterol [Mass/Vol]148 mg/tB809-169FssydmvtuMadison HealthComment on above:Chol less than 200 mg/dl low riskChol 201-239 mg/dl borderline riskChol 240 mg/dl and greater high riskCholesterol in LDL Calc [Mass/Vol]Ordered By: Jeannie Aguilar on 87-53-9964Spwxjbkrtay in LDL [Mass/Vol]82 mg/dL0-100Madison HealthComment on above:LDL ATP III CLASSIFICATIONLDL less than 100 mg/dL OptimalLDL 100-129 mg/dL Near or above ymzgbxfCSX868-970 mg/dL Borderline highLDL 160-189 mg/dL HighLDL greater than 189 mg/dL Very high Cholesterol in VLDL Calc [Mass/Vol]Ordered By: Jeannie Aguilar on 08-07-2022 Cholesterol in VLDL [Mass/Vol]15 mg/dLMadison Health Creatinine [Mass/volume] in Serum or PlasmaOrdered By: Jeannie Aguilar 19-17-4834Qztlcyutqp [Mass/Vol]1.65 mg/dL0.60-1.20Madison HealthCreatinine [Mass/volume] in UrineOrdered By: Jeannie Aguilar on 08-07-2022 Creatinine (U) [Mass/Vol]51.0 mg/dL11.0-20.0[facility] Glucose [Mass/volume] in Serum or PlasmaOrdered By: Jeannie Aguilar on 08-07-2022 Glucose [Mass/Vol]71 mg/jJ11-711LcgewtxanMadison HealthComment on above:ADA recommended reference rangeRandom Glucose Reference Range is dependent on time and content of last meal. Glucose of more than 200 mg/dL in a nonstressed, ambulatory subject supports the diagnosisof Diabetes Mellitus. Microalbumin [Mass/volume] in UrineOrdered By: Jeannie Aguilar on 08-07-2022 Albumin DL <= 20 mg/L (U) [Mass/Vol]mg/dL0.0-1.8Madison HealthNo Panel InformationOrdered By: Jeannie Aguilar on 43-26-4077H-Peptide1.6 ng/mL1.1-4.4FClermont County HospitalComment on above:C-Peptide reference interval is for fasting patients.Performed at: [facility] [place] [id number] Director: Jhoan Rich PhD, Phone: [phone] GFR (CKD-EPI)34.710 mL/MinMadison Health Pharmacy Creatinine Clearance (ChemN/[facility] SystemPhosphate [Mass/volume] in Serum or PlasmaOrdered By: Jeannie Aguilar on 08-07-2022 Phosphate [Mass/Vol]4.5 mg/dL3.7-7.2FClermont County HospitalPotassium [Moles/volume] in Serum or PlasmaOrdered By: Jeannie Aguilar 08-07-2022 Potassium [Moles/Vol]4.8 mmol/L3.5-5.1FPaulding County Hospitalerum or plasma anion gap determinationOrdered By: Jeannie Aguilar 88-28-8974Vpjxo gap [Moles/Vol]12.2 mmol/L6.0-15.0TriHealtherum or plasma high density lipoprotein (HDL) cholesterol measurementOrdered By: Jeannie Aguilar 40-29-3508Bxyxngyjmya in HDL [Mass/Vol]51 mg/eN71-89AxzfifyyiMadison HealthComment on above:HDL CHOL ATP-III CLASSIFICATION Cardiovascular RiskHDL > or equal to 60 mg/dL LOWHDL < 40 mg/dL HIGHSerum or plasma total cholesterol/high density lipoprotein (HDL) cholesterol mass ratOrdered By: Jeannie Aguilar on 67-66-8513Kbukivfjart.total/Cholesterol in HDL [Mass ratio]2.9 {ratio}<5.0TriHealthodium [Moles/volume] in Serum or PlasmaOrdered By: Jeannie Aguilar on 11-83-0231Liafas [Moles/Vol]144 mmol/M926-994 Madison HealthTriglyceride [Mass/volume] in Serum or Plasma Ordered By: Jeannie Aguilar on 11-25-9642Snrpuqgwcoaf [Mass/Vol]75 mg/dL0-149 Madison HealthComment on above:TRIG ATP III CLASSIFICATIONTRIG less than 150 mg/dL NormalTRIG 150-199 mg/dL Borderline highTRIG 200-500 mg/dL High TRIG greater than 500 mg/dL Very highStandard traceable to the Center for Disease Conrtrol and Prevention (CDC) test method. Urea nitrogen [Mass/volume] in Serum or PlasmaOrdered By: Jeannie Aguilar on 71-61-6239Gkua nitrogen [Mass/Vol]22 mg/dL7-25[facility] Urine microalbumin/creatinine mass ratioOrdered By: Jeannie Aguilar on 08-07-2022 Albumin/Creatinine DL <= 20 mg/L (U) [Mass ratio][facility] SystemComment on above:Test not performedVitamin D+Metabolites [Mass/volume] in Serum or PlasmaOrdered By: Jeannie Aguilar on 50-96-9923Yttldwo D+Metabolites [Mass/Vol]47.6 ng/cV62-212NnslpifyaMadison HealthComment on above: VITAMIN D STATUS 25(OH)VITAMIN D RANGE (ng/mL) Deficient <20 Insufficient 20 to <12Wcyqaoqtbi78 to 100Reference: [place] MF,Vanessa GONZALEZ, Caesar ASIF, et al. Evaluation,treatment, and prevention of vitamin D deficiency; an Endocrine Society clinical practice guideline. JCEM. 2010; 96(7):1911-30.Albumin [Mass/volume] in Serum or PlasmaOrdered By: Raymundo Galicia on 82-22-9602Jfgksho [Mass/Vol]3.2 g/dL2.9-4.4FClermont County HospitalBasophils Auto (Bld) [#/Vol]Ordered By: Raymundo Israelholly on 71-19-4659Nkbsbhsbb (Bld) [#/Vol]0.0 10*3/uL 0.0-0.2FClermont County HospitalBasophils/100 WBC Auto (Bld)Ordered By: Raymundo Sharmaemerita on 37-16-1207Rumyaaglj/100 WBC (Bld)0.5 %.Madison HealthEosinophils Auto (Bld) [#/Vol]Ordered By: Raymundo Sharmaemerita on 12-36-0146Erwefupkwtl (Bld) [#/Vol]0.6 10*3/uL0.0-0.45Madison HealthEosinophils/100 WBC Auto (Bld)Ordered By: Raymundo Grayson on 07-22-2022 Eosinophils/100 WBC (Bld)6.1 %.Madison HealthErythrocyte distribution width Auto (RBC) [Ratio]Ordered By: Raymundo Sharmaemerita on 07-22-2022 Erythrocyte distribution width (RBC) [Ratio]14.7 %11.9-15.3FClermont County HospitalFerritin [Mass/volume] in Serum or PlasmaOrdered By: Raymundo Sharmaemerita on 53-34-7121Gilmhwbp [Mass/Vol]284.4 ng/mL11.0-306.8Madison HealthHematocrit Auto (Bld) [Volume fraction]Ordered By: Raymundo Sharmaemerita on 08-09-1565Tifbxegkyv (Bld) [Volume fraction]37.1 %34.0-46.4FClermont County HospitalHemoglobin [Mass/volume] in BloodOrdered By: Raymundo Sharmaemerita on 13-54-6636Soyxmtmdfb (Bld) [Mass/Vol]12.1 g/dL11.8-15.4FClermont County HospitalIgA [Mass/volume] in Serum or PlasmaOrdered By: Raymundo Grayson on 96-24-2822JaK [Mass/Vol]656 mg/tO84-763HkgrcncmuMadison HealthIgG [Mass/volume] in Serum or PlasmaOrdered By: Raymundo Grayson on 00-41-3984PfS [Mass/Vol]1303 mg/dQ981-3969SlhmcotkbMadison HealthIgM [Mass/volume] in Serum or PlasmaOrdered By: Raymundo Grayson on 20-05-7256ZmD [Mass/Vol]91 mg/dL 26-217Madison HealthComment on above:Performed at: [facility] [address] [id number] Director: Jhoan Rich PhD, Phone: [phone] light chains.kappa.free [Mass/volume] in SerumOrdered By: Raymundo Galicia on 52-30-6392Jnymsljirncxot light chains.kappa.free (S) [Mass/Vol]120.4 mg/L3.3-19.4FClermont County HospitalImmunoglobulin light chains.kappa.free/Immunoglobulin light chains.lambda.free [MassOrdered By: Raymundo Galicia on 51-27-3209Jpkxblkfgfhiok light chains.kappa.free/Immunoglobulin light chains.lambda.free (S) [Mass ratio] 3.660.26-1.65Madison HealthComment on above:Performed at: [facility] [address] [id number] Director: Jhoan Rich PhD, Phone: [phone] light chains.lambda.free [Mass/volume] in Serum or PlasmaOrdered By: Raymundo Galicia on 07-22-2022 Immunoglobulin light chains.lambda.free [Mass/Vol]32.9 mg/L5.7-26.3FClermont County HospitalIron [Mass/volume] in Serum or PlasmaOrdered By: Raymundo Galicia on 17-08-2618Wkqo [Mass/Vol]67 ug/kE02-070AydkixsitMadison HealthIron binding capacity [Mass/volume] in Serum or PlasmaOrdered By: Raymundo Galicia on 14-28-4506Asaj binding capacity [Mass/Vol]290 ug/eB424-123WdrdmipmyMadison HealthIron saturation [Mass Fraction] in Serum or PlasmaOrdered By: Raymundo Galicia on 39-36-2188Iwcg saturation [Mass fraction]23.1 %20-50 [facility] HealthLaboratory - Chemistry and Chemistry - challengeOrdered By: Raymundo Grayson on 73-86-6774Gwllbpn [Mass/Vol]0.5 g/dLHigh Not ObservedMadison HealthLeukocytes [#/volume] corrected for nucleated erythrocytes in Blood by Automated counOrdered By: Raymundo Galicia on 90-61-5796HPB corrected for nucl RBC Auto (Bld) [#/Vol]10.2 10*3/uL3.8-11.6 Madison HealthLymphocytes Auto (Bld) [#/Vol]Ordered By: Raymundo Galicia on 30-48-0040Rcoxvwxowzp (Bld) [#/Vol]2.6 10*3/uL1.00-4.8Madison HealthLymphocytes/100 WBC Auto (Bld)Ordered By: Raymundo Galicia on 74-63-3833Lmryihetkrp/100 WBC (Bld)25.2 %.[facility] MCH Auto (RBC) [Entitic mass]Ordered By: Raymundo Galicia on 97-02-0234TPJ (RBC) [Entitic mass]29.6 pg24.7-34.3FClermont County HospitalMCHC Auto (RBC) [Mass/Vol]Ordered By: Raymundo Galicia on 74-37-8060PZGU (RBC) [Mass/Vol]32.7 g/dL 32.0-35.0Madison HealthMCV Auto (RBC) [Entitic vol]Ordered By: Raymundo Galicia on 34-03-5779ANF (RBC) [Entitic vol]90.4 rO28-875DqcdjbbzdMadison HealthMonocytes Auto (Bld) [#/Vol]Ordered By: Raymundo Galicia on 19-76-1844Vqxfpdxov (Bld) [#/Vol]0.7 10*3/uL0.0-0.8Madison HealthMonocytes/100 WBC Auto (Bld)Ordered By: Raymundo Galicia on 07-22-2022 Monocytes/100 WBC (Bld)7.0 %.Madison HealthNeutrophils Auto (Bld) [#/Vol]Ordered By: Raymundo Galicia on 22-57-6066Ctmwmbfnvcq (Bld) [#/Vol]6.2 10*3/uL1.8-7.7FClermont County HospitalNeutrophils/100 WBC Auto (Bld) Ordered By: Raymundo Galicia on 67-19-0036Doobmotxlyu/100 WBC (Bld)61.2 %.Madison HealthNo Panel InformationOrdered By: Raymundo Galicia on 41-98-6748Bwupoid Electrophoresis NoteSee comment.Madison HealthComment on above:Protein electrophoresis scan will follow via computer,mail, or butt maker delivery.Performed at: [facility] [facility] [id number] Director: Jhoan Rich PhD, Phone: [phone] Serum ImmunofixationSee comment.Madison HealthComment on above:Immunofixation shows IgG monoclonal protein with kappalight chain specificity. PLEASE NOTE: Samplesfrom patients receiving DARZALEX(R)(daratumumab) or SARCLISA(R)(isatuximab-irfc) treatmentcan appear as an IgG kappa and mask a complete response(CR). If this patient is receiving these therapies, thisIFE assay interference can be removed by ordering testnumber [id number]- Immunofixation, Daratumumab-Specific,Serum or [id number]- Immunofixation, Isatuximab-Specific,Serum and submitting a new sample for testing or bycalling the lab to add this test to the current sample.Nucleated erythrocytes [Presence] in Blood by Automated countOrdered By: Raymundo Galicia on 05-01-6067Nyyniltra RBC Auto Ql (Bld)0.0 /100{WBC}0-0.5FClermont County HospitalPlatelet mean volume Auto (Bld) [Entitic vol]Ordered By: Raymundo Galicia on 39-54-2554Fdxzjscd mean volume (Bld) [Entitic vol]7.4 fL6.3-10.7 Madison HealthPlatelets Auto (Bld) [#/Vol]Ordered By: Raymundo Galicia on 90-45-5177Bztbhigmd (Bld) [#/Vol]267 10*3/oK209-523XjcftayxpMadison HealthProtein [Mass/volume] in Serum or PlasmaOrdered By: Raymundo Grayson on 29-30-9850Gpocdwi [Mass/Vol]7.1 g/dL6.0-8.5FClermont County HospitalRBC Auto (Bld) [#/Vol]Ordered By: Raymundo Grayson on 61-64-9213WQW (Bld) [#/Vol]4.10 10*6/uL3.60-5.00TriHealtherum globulin measurement (mass/volume)Ordered By: Raymundo Galicia on 07-22-2022 Globulin (S) [Mass/Vol]3.9 g/dL2.2-3.9TriHealtherum or plasma albumin/globulin mass ratioOrdered By: Raymundo Galicia on 07-22-2022 Albumin/Globulin [Mass ratio]0.8 {ratio}0.7-1.7FClermont County Hospital Serum or plasma alpha 1 globulin measurement by electrophoresis (mass/volume) Ordered By: Raymundo Galicia on 56-48-1443Pilfh 1 globulin Elph [Mass/Vol]0.3 g/dL 0.0-0.4FPaulding County Hospitalerum or plasma alpha 2 globulin measurement by electrophoresis (mass/volume)Ordered By: Raymundo Galicia on 16-24-5161Aeoet 2 globulin Elph [Mass/Vol]1.0 g/dL0.4-1.0TriHealtherum or plasma beta globulin measurement by electrophoresis (mass/volume)Ordered By: Raymundo Galicia on 20-72-1523Mjkk globulin Elph [Mass/Vol]1.2 g/dL0.7-1.3FPaulding County Hospitalerum or plasma gamma globulin measurement by electrophoresis (mass/volume)Ordered By: Raymundo Galicia on 59-74-5915Rzhtv globulin Elph [Mass/Vol]1.4 g/dL0.4-1.8Madison HealthTransferrin [Mass/volume] in Serum or PlasmaOrdered By: Raymundo Galicia on 24-09-8786Pjunacdgzzg [Mass/Vol]207 mg/oC455-905RyfvybccnMadison HealthWBC Auto (Bld) [#/Vol]Ordered By: Raymundo Galicia on 86-47-8942SHS (Bld) [#/Vol]10.2 10*3/uL3.8-11.6FClermont County HospitalFFD mammogram Breast - bilateral Screeningon 29-49-7916SS screening mammo BI w/CADACMC Healthcare System videof.me Other MM screening mammo BI w/CADCompass Memorial Healthcare [employer] Other MM screening mammo BI w/[id number] [facility] [employer] Other MM screening mammo BI w/[place] [address]Fjofq videof.me Other MM screening mammo BI w/CADMammMt. [facility] videof.me Other MM screening mammo BI w/CADSignSaint Francis Hospital & [facility] videof.me Other MM screening mammo BI w/CADPatient: Kelsea Turcios MR#: [id number] videof.me Other MM screening mammo BI w/ZYI65Ypwbg videof.me Other MM screening mammo BI w/CADDOB: 1960 Acct:[id number] videof.me Other MM screening mammo BI w/CADAge/Sex: 61 / F ADM Date: 05/23/22[place] videof.me Other MM screening mammo BI w/CADLoc: [place] Room: Type: [facility] [employer] Other MM screening mammo BI w/CADAttending Dr: Peri Tyson [facility] videof.me Other MM screening mammo BI w/CADCopies to: Peri TysonVeosearch DONorth videof.me Other MM screening mammo BI w/CADOrdering Provider: Peri Tyson [facility] [employer] Other MM screening mammo BI w/CADDate of Service: 05/23/22 [facility] [employer] Other MM screening mammo BI w/CADAccession #: ([id number]) MM/MM screening mammo BI w/CAD: Breast cancer screeningNophelps health videof.me Other MM screening mammo BI w/CADBilateral Screening Full Field digital mammogram with 3-D imaging.[employer] Other MM screening mammo BI w/CADFull field digital CC and MLO imaging performed. CAD utilized.[employer] Other MM screening mammo BI w/CADCOMPARISON: 04/17/2021[place] [employer] Other MM screening mammo BI w/CADHISTORY:[place]West [place] videof.[place] Other MM screening mammo BI w/CADFINDINGS: Scattered fibroglandular densities of the breast parenchyma identified. No developingWest [place] videof.me Other MM screening mammo BI w/CADarchitectural distortion, developing focal breast asymmetry or developing malignant calcificationsWest [place] videof.me Other MM screening mammo BI w/CADidentified. Scattered benign calcifications identified.[employer] Other MM screening mammo BI w/CADORDER #: [id number] MM/MM screening mammo BI w/CADNophelps health videof.me Other MM screening mammo BI w/CADIMPRESSION:No mammographic evidence of malignancy. Routine follow-up recommended in one year.[employer] Other MM screening mammo BI w/CADRESULT CODE: 2NManhattan [facility], [facility] [employer] Other MM screening mammo BI w/CADBenign Findings(s)[employer] Other MM screening mammo BI w/CADDENSITY CODE: 2 (approximately 25-50% glandular)[employer] Other MM screening mammo BI w/CADFOLLOW UP: 1YRNoTempo Payments Other MM screening mammo BI w/CADTHE FALSE-NEGATIVE RATE OF MAMMOGRAPHY IS APPROXIMATELY 10%.[employer] Other MM screening mammo BI w/CADIMAGING OF A PALPABLE ABNORMALITY MUST BE BASED ON CLINICAL GROUNDS.[employer] Other MM screening mammo BI w/CADPATIENT WAS ENTERED INTO A REMINDER SYSTEM WITH A TARGET DUE DATE FOR THE NEXT MAMMOGRAM.[employer] Other MM screening mammo BI w/CADImpression dictated by: Domenico Brown M.D.05/23/2022 12:04 [facility] videof.me Other MM screening mammo BI w/CADDictation Location: [facility] [employer] Other MM screening mammo BI w/CADTranscribed By: PWS 05/23/22 [facility] Other MM screening mammo BI w/CADDictated By: Domenico Brown DO 05/23/22 [facility]En[facility] Other MM screening mammo BI w/CADSigned By:[employer] Other MM screening mammo BI w/CAD05/23/22 [facility]En[facility] Other Albumin [Mass/volume] in Serum or PlasmaOrdered By: Peri Tyson on 58-80-9474Nearjxb [Mass/Vol]3.4 g/dL3.2-5.5Fire[facility] Regional Medical CenterCholesterol [Mass/volume] in Serum or PlasmaOrdered By: Peri Tyson on 60-32-6681Zvqyjxuzuws [Mass/Vol]149 mg/uDHowuxs937-370 mg/dLMadison HealthComment on above:Chol less than 200 mg/dl low riskChol 201-239 mg/dl borderline riskChol 240 mg/dl and greater high riskCholesterol in LDL Calc [Mass/Vol]Ordered By: Peri Tyson on 91-25-5092Zctkxoajobz in LDL [Mass/Vol]85 mg/dL0-100Madison HealthComment on above:LDL ATP III CLASSIFICATIONLDL less than 100 mg/dL OptimalLDL 100-129 mg/dL Near or above qpphqzzZBB805-149 mg/dL Borderline highLDL 160-189 mg/dL HighLDL greater than 189 mg/dL Very highCholesterol in VLDL Calc [Mass/Vol]Ordered By: Peri Tyson on 90-28-7829Mmmizdpcqbt in VLDL [Mass/Vol]19 mg/dLMadison HealthComprehensive Metabolic Panelon 18-93-1866Kqhoetr [Mass/Vol] 3.941289 g/dLNormal3.2-5.5 g/dLNophelps health videof.me Other ALT [Catalytic activity/Vol]41 U/LWqvqcg31-58 U/LNparkland health center videof.me Other Bilirubin [Mass/Vol]0.9948135 mg/dLNormal0.3-1.2 mg/dL [employer] Other Calcium [Mass/Vol]9.4282076 mg/dLNormal8.2-10.2 mg/dL [employer] Other CO2 [Moles/Vol]30.67459103 mmol/LHigh22.0-30.0 mmol/L [employer] Other Creatinine [Mass/Vol]1.62479171 mg/dLHigh0.44-1.03 mg/dLNovan videof.me Other Potassium [Moles/Vol]4.09348839 mmol/LNormal3.5-5.1 mmol/LNorth videof.me Other Protein [Mass/Vol]7.577744 g/dLNormal6.1-7.9 g/dLNophelps health videof.me Other Comprehensive Metabolic Osrdv28Xsoip videof.me Other Comprehensive Metabolic Spldh32Ervjz videof.me Other Comprehensive Metabolic Panel4.2 g/dLNovan videof.me Other Creatinine and Glomerular filtration rate.predicted panel (S/P/Bld)Ordered By: Peri Tyson on 22-63-6306Pnnqnefudf [Mass/Vol]1.20 mg/dL0.44-1.03Madison HealthEstimated glomerular filtration rate (GFR) non- AmericanOrdered By: Peri Tyson on 80-62-8431BHY/1.73 sq M.predicted among non-blacks MDRD (S/P/Bld) [Vol rate/Area]45 mL/MinMadison HealthGlobulin Calc (S) [Mass/Vol]Ordered By: Peri Tyson on 82-81-6088Albzkxaq (S) [Mass/Vol]4.2 g/dLMadison HealthLipid Panelon 31-71-4123Kqlxlwtmiyt in LDL Elph Qn85 mg/dLNormal0-100 mg/dLWest [place] videof.me Other Lipid Panel96 mg/dGPuqiwo97-212 mg/dLNovan videof.me Other Lipid Panel19 mg/dLNovan videof.me Other Microalbumin, Urine (Random)on 29-62-2440Vdrgokr DL <= 20 mg/L (U) [Mass/Vol]0.9106738 mg/dLNormal0.0-1.8 mg/dLNorth videof.me Other No Panel InformationOrdered By: Peri Tyson on 21-84-1035Vupqdzdfo GFR ()55 mL/MinMadison HealthComment on above:GFR estimated reference range: According to KDOQI guidelines, <60 ml/min/1.73m2 is sufficient todiagnose a patient with chronic kidney disease.Pharmacy Creatinine Clearance (ChemN/[facility] Healthcare SystemProtein [Mass/volume] in Serum or PlasmaOrdered By: Peri Tyson on 18-90-3132Yrivhot [Mass/Vol]7.6 g/dL6.1-7.9[facility] Serum or plasma alanine aminotransferase measurement without P-5'-P (enzymatic activiOrdered By: Peri Tyson on 93-49-7018LEF No additional P-5'-P [Catalytic activity/Vol]41 U/Z02-43NuudutrrmTriHealtherum or plasma albumin/globulin mass ratioOrdered By: Peri Tyson on 05-09-2022 Albumin/Globulin [Mass ratio]0.8 {ratio}TriHealtherum or plasma alkaline phosphatase measurement (enzymatic activity/volume)Ordered By: Peri Tyson on 39-02-1728KMP [Catalytic activity/Vol]137 U/FJpbs21-08 U/L TriHealtherum or plasma anion gap determinationOrdered By: Peri Tyson on 80-62-2268Ovxit gap [Moles/Vol]13.1 mmol/L6.0-15.0TriHealtherum or plasma aspartate aminotransferase measurement (enzymatic activity/volume)Ordered By: Peri Tyson on 41-26-3165FMS [Catalytic activity/Vol]49 U/YSnop64-32 U/[facility]ams County Hospitalerum or plasma calcium measurement (mass/volume)Ordered By: Peri Tyson on 29-76-9261Bjthcoh [Mass/Vol]9.5 mg/dL8.2-10.2FPaulding County Hospitalerum or plasma chloride measurement (moles/volume)Ordered By: Peri Tyson on 05-09-2022 Chloride [Moles/Vol]98 mmol/LFkzonv06-028 mmol/[facility] County Hospitalerum or plasma glucose measurement (mass/volume)Ordered By: Peri Tyson on 40-22-4422Nlkxiqt [Mass/Vol]186 mg/jTUpra00-557 mg/dLMadison HealthComment on above:ADA recommended reference rangeRandom Glucose Reference Range is dependent on time and content of last meal. Glucose of more than 200 mg/dL in a nonstressed, ambulatory subject supports the diagnosisof Diabetes Mellitus.Serum or plasma high density lipoprotein (HDL) cholesterol measurementOrdered By: Peri Tyson on 20-63-3929Jertyjmatin in HDL [Mass/Vol]45 mg/yPFjlhhi60-55 mg/dLMadison HealthComment on above:HDL CHOL ATP-III CLASSIFICATION Cardiovascular RiskHDL > or equal to 60 mg/dL LOWHDL < 40 mg/dL HIGHSerum or plasma potassium measurement (moles/volume)Ordered By: Peri Tyson on 45-71-0232Cvmmgbweo [Moles/Vol]4.0 mmol/L3.5-5.1FPaulding County Hospitalerum or plasma sodium measurement (moles/volume)Ordered By: Peri Tyson on 34-25-2718Kxryue [Moles/Vol]138 mmol/XRbyegy466-955 mmol/L TriHealtherum or plasma total bilirubin measurement (mass/volume)Ordered By: Peri Tyson on 12-26-9047Mknrpuphr [Mass/Vol]0.4 mg/dL 0.3-1.2FPaulding County Hospitalerum or plasma total carbon dioxide measurement (moles/volume)Ordered By: Peri Tyson on 85-66-2717WC6 [Moles/Vol] 30.9 mmol/L22.0-30.0TriHealtherum or plasma total cholesterol/high density lipoprotein (HDL) cholesterol mass ratOrdered By: Peri Tyson on 38-66-3841Gxauhvmszfm.total/Cholesterol in HDL [Mass ratio]3.3 {ratio}<5.0TriHealtherum or plasma urea nitrogen measurement (mass/volume)Ordered By: Peri Tyson on 59-92-0875Bqiv nitrogen [Mass/Vol]11 mg/dLNormal9-23 mg/dLMadison HealthTSH DL <= 0.005 mIU/L QnOrdered By: Peri Tyson on 21-08-5213CDC Qn2.51 m[IU]/L0.45-5.33 Madison HealthThyroid Stim Hormone w/Rflxon 75-32-1888Vomkroc Stim Hormone w/Rflx2.51 u[iU]/mLNormal0.45-5.33 u[iU]/mLNManhattan Eye, Ear and Throat Hospital [employer] Other Triglyceride [Mass/volume] in Serum or PlasmaOrdered By: Peri Tyson on 88-98-5621Zbghxxgxglfi [Mass/Vol]96 mg/nG40-453TanupwovgMadison HealthComment on above:TRIG ATP III CLASSIFICATIONTRIG less than 150 mg/dL NormalTRIG 150-199 mg/dL Borderline highTRIG 200-500 mg/dL High TRIG greater than 500 mg/dL Very highStandard traceable to the Center for Disease Conrtrol and Prevention (CDC) test method.Urine microalbumin measurement with detection limit of 20 mg/L or less (mass/volume)Ordered By: Peri Tyson on 10-87-4512Umkpmmw DL <= 20 mg/L (U) [Mass/Vol]0.6 mg/dL0.0-1.8Madison HealthA1C HEMOGLOBINon 94-54-5348VfH0c (Bld) [Mass fraction]7.6 %[employer] Other HbA1c (Bld) [Mass fraction]on 72-94-2652M4U HEMOGLOBIN [facility] [employer] Other Albumin [Mass/volume] in Serum or PlasmaOrdered By: Roxane Bills on 58-17-9299Satyyoz [Mass/Vol]3.2 g/dL3.2-5.5FClermont County HospitalAlbumin [Mass/Vol]3.4 g/dL2.9-4.4FClermont County Hospital Basophils Auto (Bld) [#/Vol]Ordered By: Roxane Bills on 76-27-7315Jjgwamqvd (Bld) [#/Vol]0.1 10*3/uL0.0-0.2FClermont County HospitalBasophils/100 WBC Auto (Bld)Ordered By: Roxane Bills on 19-35-9255Sxyrvqztt/100 WBC (Bld)0.5 %.Madison HealthCT biopsyOrdered By: Roxane Bills on 41-02-3305Rausubzayfy [Mass/Vol]247 mg/xI127-934SnxwqbfmvMadison HealthCreatinine and Glomerular filtration rate.predicted panel (S/P/Bld)Ordered By: Roxane Bills on 88-92-2194Nncfaglfok [Mass/Vol]1.26 mg/dL0.44-1.03Madison HealthEosinophils Auto (Bld) [#/Vol]Ordered By: Roxane Bills on 04-17-2022 Eosinophils (Bld) [#/Vol]0.6 10*3/uL0.0-0.45[facility] Eosinophils/100 WBC Auto (Bld)Ordered By: Roxane Bills on 04-79-3914Nwstgxooqrx/100 WBC (Bld)5.9 %.Madison HealthErythrocyte distribution width Auto (RBC) [Ratio]Ordered By: Roxane Bills on 74-74-0164Xqkfmfqrnfc distribution width (RBC) [Ratio]15.7 %11.9-15.3FClermont County HospitalEstimated glomerular filtration rate (GFR) non- AmericanOrdered By: Roxane Bills on 22-25-3214MXB/1.73 sq M.predicted among non-blacks MDRD (S/P/Bld) [Vol rate/Area]43 mL/MinMadison HealthGFR/1.73 sq M.predicted among non-blacks MDRD (S/P/Bld) [Vol rate/Area]Estimated glomerular filtration rate (GFR) non- AmericanMadison HealthFerritin [Mass/volume] in Serum or PlasmaOrdered By: Roxane Bills on 54-59-7922Vvrlrzyb [Mass/Vol]72.6 ng/pV61-432.8Madison HealthGlobulin Calc (S) [Mass/Vol]Ordered By: Roxane Bills on [id number] (S) [Mass/Vol]3.8 g/dL [facility] HealthHematocrit Auto (Bld) [Volume fraction]Ordered By: Roxane Sanju on 90-71-9828Jxgmyqkgoh (Bld) [Volume fraction]35.4 %34.0-46.4 [facility] HealthHemoglobin [Mass/volume] in BloodOrdered By: Roxane Sanju on 60-62-7190Ieelroudno (Bld) [Mass/Vol]11.2 g/dL11.8-15.4FClermont County HospitalIgA [Mass/volume] in Serum or PlasmaOrdered By: Roxane Sanju on 70-15-7768WyC [Mass/Vol]625 mg/dT52-585WxoycavsnMadison HealthIgG [Mass/volume] in Serum or PlasmaOrdered By: Roxane Sanju on 51-09-8978TsN [Mass/Vol]1443 mg/hA085-0786NsruiiikxMadison HealthIgM [Mass/volume] in Serum or PlasmaOrdered By: Roxane Bills on 51-68-4806RlV [Mass/Vol]98 mg/dL 26-217Madison HealthComment on above:Performed at: [facility] Director: Jhoan Rich PhD, Phone: [phone] light chains.kappa.free [Mass/volume] in SerumOrdered By: Roxane Bills on 52-18-2280Lyenydgcoiyfuz light chains.kappa.free (S) [Mass/Vol]162.6 mg/L3.3-19.4FClermont County HospitalImmunoglobulin light chains.kappa.free/Immunoglobulin light chains.lambda.free [MassOrdered By: Roxane Bills on 55-68-9221Qxrajescihsdye light chains.kappa.free/Immunoglobulin light chains.lambda.free (S) [Mass ratio]3.65 0.26-1.65Madison HealthComment on above:Performed at: [facility] [id number] Director: Jhoan Rich PhD, Phone: [phone] light chains.lambda.free [Mass/volume] in Serum or PlasmaOrdered By: Roxane Bills on 04-17-2022 Immunoglobulin light chains.lambda.free [Mass/Vol]44.5 mg/L5.7-26.3FClermont County HospitalIron [Mass/volume] in Serum or PlasmaOrdered By: Roxane Bills on 26-87-4747Gcrn [Mass/Vol]53 ug/rB97-971WchtxhrdbMadison HealthIron binding capacity [Mass/volume] in Serum or PlasmaOrdered By: Roxane Bills on 14-99-6091Efnw binding capacity [Mass/Vol]346 ug/sG595-004ZoesuxsxdMadison HealthIron saturation [Mass Fraction] in Serum or PlasmaOrdered By: Roxane Bills on 18-72-5070Vakf saturation [Mass fraction]15.3 %20-50Mad[facility] HealthLaboratory - Chemistry and Chemistry - challengeOrdered By: Roxane Bills on 31-95-0337Xsunaxj [Mass/Vol]0.4 g/dLNot ObservedMadison HealthLeukocytes [#/volume] corrected for nucleated erythrocytes in Blood by Automated counOrdered By: Roxane Bills on 13-94-8916NGB corrected for nucl RBC Auto (Bld) [#/Vol]10.8 10*3/uL3.8-11.6FClermont County HospitalLymphocytes Auto (Bld) [#/Vol]Ordered By: Roxane Bills on 04-17-2022 Lymphocytes (Bld) [#/Vol]2.6 10*3/uL1.00-4.8[facility] Lymphocytes/100 WBC Auto (Bld)Ordered By: Roxane Bills on 69-15-9444Jflaucmuxcl/100 WBC (Bld)24.5 %.[facility] Auto (RBC) [Entitic mass] Ordered By: Roxane Bills on 85-17-7714XUC (RBC) [Entitic mass]27.9 pg24.7-34.3 [facility] HospitalHC Auto (RBC) [Mass/Vol]Ordered By: Roxane Bills on 37-11-0091KKXL (RBC) [Mass/Vol]31.6 g/dL32.0-35.0Madison HealthMCV Auto (RBC) [Entitic vol]Ordered By: Roxane Bills on 85-90-9350MRX (RBC) [Entitic vol]88.1 oB14-069UlocnbzecMadison HealthMonocytes Auto (Bld) [#/Vol]Ordered By: Roxane Bills on 05-28-5731Ofoggoiud (Bld) [#/Vol]0.8 10*3/uL 0.0-0.8Madison HealthMonocytes/100 WBC Auto (Bld)Ordered By: Roxane Bills on 69-61-6452Bxrndxezs/100 WBC (Bld)7.9 %.Madison HealthNeutrophils Auto (Bld) [#/Vol]Ordered By: Roxane Bills on 04-17-2022 Neutrophils (Bld) [#/Vol]6.6 10*3/uL1.8-7.7FClermont County Hospital Neutrophils/100 WBC Auto (Bld)Ordered By: Roxane Bills on 81-76-1992Ahdwoaomxrs/100 WBC (Bld)61.2 %.[facility]ison HealthNo Panel InformationOrdered By: Roxane Bills on 19-86-3754Thmpxpxqh GFR ()52 mL/MinMadison HealthComment on above:GFR estimated reference range: According to KDOQI guidelines, <60 ml/min/1.73m2 is sufficient todiagnose a patient with chronic kidney disease.Pharmacy Creatinine Clearance (Chem51.63Madison HealthProtein Electrophoresis NoteSee comment.Madison HealthComment on above:Protein electrophoresis scan will follow via computer,mail, or butt maker delivery.Performed at: [facility] [address] [id number] Director: Jhoan Rich PhD, Phone: [phone] mL/MinMadison HealthNucleated erythrocytes [Presence] in Blood by Automated countOrdered By: Roxane Bills on 04-17-2022 Nucleated RBC Auto Ql (Bld)0.2 /100{WBC}0-0.5FClermont County Hospital Platelet mean volume Auto (Bld) [Entitic vol]Ordered By: Roxane Bills on 04-17-2022 Platelet mean volume (Bld) [Entitic vol]7.6 fL6.3-10.7FClermont County HospitalPlatelets Auto (Bld) [#/Vol]Ordered By: Roxane Bills on 04-60-1641Jprajskth (Bld) [#/Vol]273 10*3/nL659-961LfyggvhdgMadison HealthProtein [Mass/volume] in Serum or PlasmaOrdered By: Roxane Bills on 78-37-4248Qpbvwlk [Mass/Vol]7.0 g/dL6.1-7.9Madison HealthProtein [Mass/Vol]7.3 g/dL6.0-8.5FClermont County HospitalRBC Auto (Bld) [#/Vol]Ordered By: Roxane Bills on 28-09-9274DYN (Bld) [#/Vol]4.02 10*6/uL3.60-5.00TriHealtherum globulin measurement (mass/volume)Ordered By: Roxane Bills on 47-20-3456Zenzxuhm (S) [Mass/Vol]3.9 g/dL2.2-3.9TriHealtherum or plasma alanine aminotransferase measurement without P-5'-P (enzymatic activiOrdered By: Roxane Bills on 31-34-5573QXO No additional P-5'-P [Catalytic activity/Vol]22 U/U83-21CmyknszepTriHealtherum or plasma albumin/globulin mass ratioOrdered By: Roxane Bills on 04-17-2022 Albumin/Globulin [Mass ratio]0.8 {ratio}[facility] Albumin/Globulin [Mass ratio]0.9 {ratio}0.7-1.7FClermont County Hospital Serum or plasma alkaline phosphatase measurement (enzymatic activity/volume) Ordered By: Roxane Bills on 50-85-2896JTG [Catalytic activity/Vol]121 U/L32-92 TriHealtherum or plasma alpha 1 globulin measurement by electrophoresis (mass/volume)Ordered By: Roxane Bills on 74-04-2725Zzdnn 1 globulin Elph [Mass/Vol]0.3 g/dL0.0-0.4FPaulding County Hospitalerum or plasma alpha 2 globulin measurement by electrophoresis (mass/volume)Ordered By: Roxane Bills on 85-86-2579Agbxm 2 globulin Elph [Mass/Vol]0.9 g/dL0.4-1.0TriHealtherum or plasma anion gap determinationOrdered By: Roxane Bills on 88-29-4810Wedgf gap [Moles/Vol]12.8 mmol/L6.0-15.0TriHealtherum or plasma aspartate aminotransferase measurement (enzymatic activity/volume)Ordered By: Roxane Bills on 69-02-7463CGA [Catalytic activity/Vol] 23 U/O48-64QqbvvpqyxTriHealtherum or plasma beta globulin measurement by electrophoresis (mass/volume)Ordered By: Roxane Bills on 04-17-2022 Beta globulin Elph [Mass/Vol]1.4 g/dL0.7-1.3FClermont County Hospital Serum or plasma calcium measurement (mass/volume)Ordered By: Roxane Bills on 78-29-4786Abaysav [Mass/Vol]9.1 mg/dL8.2-10.2FClermont County Hospital Serum or plasma chloride measurement (moles/volume)Ordered By: Roxane Bills on 76-13-4783Dmskyyuq [Moles/Vol]98 mmol/J02-361KkbabdgdfMadison Health Serum or plasma gamma globulin measurement by electrophoresis (mass/volume) Ordered By: Roxane Bills on 35-78-4334Vaayn globulin Elph [Mass/Vol]1.3 g/dL0.4-1.8 TriHealtherum or plasma glucose measurement (mass/volume)Ordered By: Roxane Bills on 71-08-6467Fovindh [Mass/Vol]269 mg/dL 70-100Madison HealthComment on above:ADA recommended reference rangeRandom Glucose Reference Range is dependent on time and content of last meal. Glucose of more than 200 mg/dL in a nonstressed, ambulatory subject supports the diagnosisof Diabetes Mellitus.Serum or plasma potassium measurement (moles/volume)Ordered By: Roxane Bills on 59-13-2503Qhuwiubqt [Moles/Vol]3.5 mmol/L3.5-5.1FPaulding County Hospitalerum or plasma sodium measurement (moles/volume)Ordered By: Roxane Bills on 96-57-8023Bhnloq [Moles/Vol]138 mmol/I764-797EmoakabpxTriHealtherum or plasma total bilirubin measurement (mass/volume)Ordered By: Roxane Bills on 04-17-2022 Bilirubin [Mass/Vol]0.3 mg/dL0.3-1.2FPaulding County Hospitalerum or plasma total carbon dioxide measurement (moles/volume)Ordered By: Roxane Bills on 28-80-3309SI7 [Moles/Vol]30.7 mmol/L22.0-30.0[facility] Serum or plasma urea nitrogen measurement (mass/volume)Ordered By: Roxane Bills on 56-44-1308Afmo nitrogen [Mass/Vol]17 mg/dL9-23[facility] WBC Auto (Bld) [#/Vol]Ordered By: Roxane Bills on 53-68-9292ZEJ (Bld) [#/Vol]10.8 10*3/uL3.8-11.6FClermont County HospitalUrine culture routineOrdered By: Peri Tyson on 19-71-0254Ajexbsyz identified Cx Nom (U)Strep. agalactiae Grp B Madison HealthA1C HEMOGLOBINon 06-98-0568RkH0i (Bld) [Mass fraction]7.0 %[facility] [employer] Other Urinalysis - AUTOMATEDon 90-31-5384Kecsffytyr (U) cloudyNparkland health center videof.me Other Bilirubin Ql (U)NegativeNovan videof.me Other Color (U)yellowNovan videof.me Other Glucose Ql (U)500[place] [employer]of.[employer] Other Hemoglobin Ql (U)Community HealthNovan videof.me Other Ketones Ql (U)Community HealthNovan videof.me Other Leukocyte esterase Test strip Ql (U)smallNovan videof.me Other Nitrite Ql (U)Community HealthNovan videof.me Other pH (U)5.5 [pH]Floq Other Protein Ql (U)NegativeNophelps health videof.me Other Specific gravity (U) [Rel density]1.010[facility] videof.[employer] Other Urobilinogen (U) [Mass/Vol]0.2 mg/dLWest Berlin videof.me Other Urinalysis - AUTOMATEDNophelps health videof.me Other Urine culture routineOrdered By: Peri Tyson on 00-02-9725Dgbbixna identified Cx Nom (U)Strep. agalactiae Grp [facility] HospitalUrine culture routineOrdered By: Peri Tyson on 92-83-0003Kehjbbuz identified Cx Nom (U)Strep. agalactiae [facility] Medical CenterDrugs identified in UrineOrdered By: Peri Tyson on 70-14-4871Gpzkk identified Nom (U)[facility] HospitalComment on above: TOXASSURE COMP DRUG ANALYSIS,UR= [...] clinical consultation, please call . Performed at: [facility] [address] [id number] Director: Tomasa Alegria [facility], Phone: [phone] - AUTOMATEDon 13-15-1096Rcjhgzlbrd (U)clearNoEnSol Other Bilirubin Ql (U)NegativeFloq Other Color (U)yellowNortTempo Payments Other Glucose Ql (U)1000NoEnSol Other Hemoglobin Ql (U)NegativeFloq Other Ketones Ql (U)NegativeFloq Other Leukocyte esterase Test strip Ql (U)traceNoEnSol Other Nitrite Ql (U)NegativeEnSol Other pH (U)7.0 [pH]Floq Other Protein Ql (U)NegativeEnSol Other Specific gravity (U) [Rel density]1.010[facility] videof[employer]me Other Urobilinogen (U) [Mass/Vol]0.2 mg/dLEnSol Other Urinalysis - AUTOMATEDEnSol Other CT biopsyOrdered By: Roxane Bills on 10-23-2021 Transferrin [Mass/Vol]290 mg/bM059-179NvavhgatbMadison HealthFerritin [Mass/volume] in Serum or PlasmaOrdered By: Roxane Bills on 04-41-0217Akaaswhh [Mass/Vol]76.6 ng/vM91-230.8Madison HealthIron [Mass/volume] in Serum or PlasmaOrdered By: Roxane Bills on 44-43-3518Ycvu [Mass/Vol]64 ug/dL 40-150Madison HealthIron binding capacity [Mass/volume] in Serum or PlasmaOrdered By: Roxane Bills on 48-73-2133Oxgp binding capacity [Mass/Vol]406 ug/aP302-428DxqcefdlwMadison HealthIron saturation [Mass Fraction] in Serum or PlasmaOrdered By: Roxane Bills on 99-18-0196Gcpf saturation [Mass fraction]15.0 %20-50Madison HealthA1C HEMOGLOBINon 18-02-1009ZxP7d (Bld) [Mass fraction]7.2 %F[employer] Other basic Metabolic PanelOrdered By: Laureen Moreno on 82-86-5790Ajtjojad [Moles/Vol]100 mmol/X81-095BxgucalzkMadison HealthGlucose [Mass/Vol]268 mg/aQ62-218CgyrveroeMadison HealthComment on above:ADA recommended reference range Random Glucose Reference Range is dependent on time and content of last meal. Glucose of more than 200 mg/dL in a nonstressed, ambulatory subject supports the diagnosis of Diabetes Mellitus.Sodium [Moles/Vol]139 mmol/U280-883VoltzikdjMadison HealthUrea nitrogen [Mass/Vol]18 mg/dL9-23Madison HealthBasic Metabolic Panelon 79-20-5677Lzjooxa [Mass/Vol]9.0430644 mg/dLNormal8.2-10.2 mg/dLNovan videof.me Other cO2 [Moles/Vol]29.72250535 mmol/GVwvgxo54.0-30.0 mmol/LNSeres Health Other creatinine [Mass/Vol]1.86086271 mg/dLHigh0.44-1.03 mg/dLEnSol Other potassium [Moles/Vol]4.85932586 mmol/LNormal3.5-5.1 mmol/LNSeres Health Other basic Metabolic Ulhfw35Scn[employer] videof[employer]me Other creatinine and Glomerular filtration rate.predicted panel (S/P/Bld)Ordered By: Laureen Moreno on 80-64-1398Hsicnumclk [Mass/Vol]1.57 mg/dL0.44-1.03Madison HealthEstimated glomerular filtration rate (GFR) non- AmericanOrdered By: Laureen Moreno on 43-74-1072ETE/1.73 sq M.predicted among non-blacks MDRD (S/P/Bld) [Vol rate/Area]33 mL/MinMadison HealthHbA1c (Bld) [Mass fraction]on 24-46-6934T2D HEMOGLOBINNophelps health videof.me Other no Panel InformationOrdered By: Laureen Moreno on 61-50-7984Hcrcxmqwy GFR ()40 mL/MinMadison HealthComment on above:GFR estimated reference range: According to KDOQI guidelines, <60 ml/min/1.73m2 is sufficient todiagnose a patient with chronic kidney disease.Pharmacy Creatinine Clearance (ChemN/[facility] Medical Centererum or plasma calcium measurement (mass/volume)Ordered By: Laureen Moreno on 24-46-2261Pnryxas [Mass/Vol]9.6 mg/dL8.2-10.2FPaulding County Hospitalerum or plasma potassium measurement (moles/volume)Ordered By: Laureen Moreno on 23-23-5048Xrmiosgii [Moles/Vol]4.7 mmol/L3.5-5.1 TriHealtherum or plasma total carbon dioxide measurement (moles/volume)Ordered By: Laureen Moreno on 63-96-8030IR0 [Moles/Vol]29.0 mmol/L22.0-30.0Madison HealthActivated partial thromboplastin time (aPTT) in platelet poor plasma by coagulation a Ordered By: Roxane Bills on 41-69-0269yMHW Coag (PPP) [Time]33.0 s25.1-36.5 Madison HealthBasophils Auto (Bld) [#/Vol]Ordered By: Roxane Bills on 22-26-5646Pjtcckehg (Bld) [#/Vol]0.1 10*3/uL0.0-0.2FClermont County HospitalBasophils/100 WBC Auto (Bld)Ordered By: Roxane Bills on 09-26-2021 Basophils/100 WBC (Bld)0.5 %.Madison HealthBlood hemoglobin measurement (mass/volume)Ordered By: Roxane Bills on 95-94-7201Zwaxyvmlgi (Bld) [Mass/Vol]11.4 g/dL11.8-15.4FClermont County HospitalBlood leukocytes automated count (number/volume)Ordered By: Roxane Bills on 72-48-5583UXE (Bld) [#/Vol]11.1 10*3/uL4.5-11.0Madison HealthEosinophils Auto (Bld) [#/Vol]Ordered By: Roxane Bills on 33-56-6174Yaikcorhumd (Bld) [#/Vol]0.8 10*3/uL0.0-0.45Madison HealthEosinophils/100 WBC Auto (Bld) Ordered By: Roxane Bills on 70-31-0313Udabnrcqsbi/100 WBC (Bld)7.7 %.Madison HealthErythrocyte distribution width Auto (RBC) [Ratio]Ordered By: Roxane Bills on 99-71-8935Oloextitoxp distribution width (RBC) [Ratio]14.5 % 11.9-15.3FClermont County HospitalHematocrit Auto (Bld) [Volume fraction]Ordered By: Roxane Bills on 29-91-3173Pqupdojwls (Bld) [Volume fraction] 35.3 %34.0-46.4FClermont County HospitalLaboratory - CoagulationOrdered By: Roxane Bills on 30-90-2321NK Coag (PPP) [Time]13.9 s9.0-12.9Mad[facility] HealthLaboratory - Hematology and Cell countsOrdered By: Roxane Bills on 52-76-9844Fdsyzdvfh RBC/100 WBC (Bld) [Ratio]0.1 %0-0.5FClermont County HospitalLymphocytes Auto (Bld) [#/Vol]Ordered By: Roxane Bills on 09-26-2021 Lymphocytes (Bld) [#/Vol]2.4 10*3/uL1.00-4.8[facility] Lymphocytes/100 WBC Auto (Bld)Ordered By: Roxane Bills on 46-61-4700Mnefxavixdb/100 WBC (Bld)21.6 %.[facility] Auto (RBC) [Entitic mass] Ordered By: Roxane Bills on 37-19-9573PGN (RBC) [Entitic mass]28.3 pg24.7-34.3 Madison HealthMCHC Auto (RBC) [Mass/Vol]Ordered By: Roxane Bills on 14-51-1921RQIX (RBC) [Mass/Vol]32.1 g/dL32.0-35.0Mad[facility] HealthMCV Auto (RBC) [Entitic vol]Ordered By: Roxane Bills on 76-73-0007UOW (RBC) [Entitic vol]88.0 qT90-905EtnehjxavMadison HealthMonocytes Auto (Bld) [#/Vol]Ordered By: Roxane Bills on 21-20-7969Jmtcwohzk (Bld) [#/Vol]0.9 10*3/uL 0.0-0.8Madison HealthMonocytes/100 WBC Auto (Bld)Ordered By: Roxane Bills on 58-71-8238Irbhikmcx/100 WBC (Bld)7.8 %.[facility] HealthNeutrophils Auto (Bld) [#/Vol]Ordered By: Roxane Bills on 09-26-2021 Neutrophils (Bld) [#/Vol]6.9 10*3/uL1.8-7.7FClermont County Hospital Neutrophils/100 WBC Auto (Bld)Ordered By: Roxane Bills on 50-67-3091Jsszifztsoc/100 WBC (Bld)62.4 %.Mad[facility] HealthPlatelet mean volume Auto (Bld) [Entitic vol]Ordered By: Roxane Bills on 51-85-3311Iualqnhf mean volume (Bld) [Entitic vol]7.5 fL6.3-10.7FClermont County HospitalPlatelet poor plasma international normalized ratio (INR) by coagulation assay (relatOrdered By: Roxane Bills on 61-30-5882WOJ Coag (PPP) [Relative time]1.2 {INR}Madison HealthComment on above:INR Therapeutic Range A) Pre- [...] Auto (Bld) [#/Vol]Ordered By: Roxane Bills on 34-58-6645Wycmnjkay (Bld) [#/Vol]302 10*3/uL 150-450Madison HealthRBC Auto (Bld) [#/Vol]Ordered By: Roxane Bills on 73-48-4955GDU (Bld) [#/Vol]4.01 10*6/uL3.60-5.00Mad[facility] HealthAlbumin/Protein.total in 24 hour Urine by ElectrophoresisOrdered By: Roxane Bills on 12-36-9932Lrumziq Elph (24H U) [Mass fraction]27.8 %.Madison HealthAlbumin Elph (24H U) [Mass fraction]Albumin/Protein.total in 24 hour Urine by Electrophoresis.[facility] HealthCreatinine [Mass/volume] in UrineOrdered By: Roxane Bills on 26-24-7916Qkbrkqmlss (U) [Mass/Vol]35.9 mg/dLMadison HealthComment on above:No reference range establishedCreatinine (U) [Mass/Vol]Creatinine [Mass/volume] in UrineMadison HealthComment on above:No reference range establishedGamma globulin/Protein.total in 24 hour Urine by Electrophoresis Ordered By: Roxane Bills on 87-37-2006Vqroy globulin Elph (24H U) [Mass fraction] 24.3 %.Madison HealthGamma globulin Elph (24H U) [Mass fraction]Gamma globulin/Protein.total in 24 hour Urine by Electrophoresis. Madison HealthImmunofixation for UrineOrdered By: Roxane Bills on 52-93-3689Qejiyzixcrdjie Immunofixation (U) [Interp]See comment.Madison HealthComment on above:No monoclonality detected. Performed at: [facility] [id number] [employer] Hand: Jhoan Rich PhD, Phone: [phone] monoclonality detected.Performed at: [facility] [id number] Director: Jhoan Rich PhD, Phone: [phone] Immunofixation (U) [Interp]Immunofixation for Urine.Madison HealthComment on above:No monoclonality detected.Performed at: [facility] [place] [id number] Director: Jhoan Rich PhD, Phone: [phone] light chains.kappa.free [Mass/volume] in Serum Ordered By: Roxane Bills on 33-78-4708Rxdshgtqxvuuuk light chains.kappa.free (S) [Mass/Vol]73.6 mg/L3.3-19.4FClermont County HospitalImmunoglobulin light chains.kappa.free/Immunoglobulin light chains.lambda.free [MassOrdered By: Roxane Bills on 77-10-3750Fcovfjdsmbzsjk light chains.kappa.free/Immunoglobulin light chains.lambda.free (S) [Mass ratio]2.520.26-1.65Madison HealthComment on above:Performed at: [address] [id number] [employer] Hand: Jhoan Rich PhD, Phone: [phone] light chains.lambda.free [Mass/volume] in Serum or PlasmaOrdered By: Roxane Bills on 72-93-8315Kkyyemlvxfnias light chains.lambda.free [Mass/Vol]29.2 mg/L5.7-26.3 [facility] HealthNo Panel InformationOrdered By: Roxane Bills on 43-08-5641Fvzft Random Prot Electrophor NoteSee comment.Madison HealthComment on above:Protein electrophoresis scan will follow via computer, mail, or butt maker delivery. Protein electrophoresis scan will follow via computer, mail, or butt maker delivery. Performed at: [facility] [id number] [employer] Hand: Jhoan Rich PhD, Phone: [phone] --- 08/20/21 1409 --- Please Note: previously reported as: Protein electrophoresis scan will follow via computer, mail, or butt maker delivery.Protein electrophoresis scan will follow via computer,mail, or butt maker delivery. Protein electrophoresis scan will follow via computer,mail, or butt maker delivery.Performed at: [facility] [address] [id number] Director: Jhoan Rich PhD, Phone: [phone] --- ---Please Note: previously reported as: Protein electrophoresis scan will follow via computer,mail, or butt maker delivery.See comment.Madison HealthProtein [Mass/volume] in UrineOrdered By: Roxane Bills on 64-37-7741Wggxnvd (U) [Mass/Vol]4.8 mg/dLNot Estab.Mad[facility] HealthProtein (U) [Mass/Vol]Protein [Mass/volume] in UrineNot Estab.Mad[facility] HealthProtein.monoclonal/Protein.total in 24 hour Urine by ElectrophoresisOrdered By: Roxane Bills on 08-16-2021 Protein.monoclonal Elph (24H U) [Mass fraction]Not observed %Not Observed Madison HealthProtein.monoclonal Elph (24H U) [Mass fraction] Protein.monoclonal/Protein.total in 24 hour Urine by ElectrophoresisNot Observed TriHealtherum or plasma emjg-7-neczlocfoorzr measurement (mass/volume)Ordered By: Roxane Bills on 86-62-4455Ancn-2-Microglobulin [Mass/Vol]4.9 ug/mLHigh0.6-2.4FClermont County HospitalComment on above: Siemens Immulite 2000 Immunochemiluminometric assay (ICMA) Values obtained with different assay methods or kits cannot be used interchangeably. Results cannot be interpreted as absolute evidence of the presence or absence of malignant disease. Performed at: [facility] [id number] [employer] Hand: Betty Bah MD, Phone: [phone] Immulite 2000 Immunochemiluminometric assay (ICMA)Values obtained with different assay methods or kits cannotbe used interchangeably. Results cannot be interpreted asabsolute evidence of the presence or absence of malignantdisease.Performed at: [facility] [id number] Director: Betty Bah MD, Phone: [phone]-7-Dvtnojlacmdag [Mass/Vol]Serum or plasma trzr-6-cdzjbyivxnuhs measurement (mass/volume)High0.6-2.4FClermont County HospitalComment on above:Siemens Immulite 2000 Immunochemiluminometric assay (ICMA)Values obtained with different assay methods or kits cannotbe used interchangeably. Results cannot be interpreted asabsolute evidence of the p resence or absence of malignantdisease.Performed at: [facility] [id number] Director: Betty Bah MD, Phone: [phone] alpha 1 globulin/total protein by electrophoresisOrdered By: Roxane Bills on 56-67-5410Jvrjt 1 globulin Elph (U) [Mass fraction]3.9 %.[facility] HealthAlpha 1 globulin Elph (U) [Mass fraction]Urine alpha 1 globulin/total protein by electrophoresis.Madison HealthUrine alpha 2 globulin/total protein ratio by electrophoresisOrdered By: Roxane Bills on 08-70-1213Yqgig 2 globulin Elph (U) [Mass fraction]11.3 %.[facility]ison HealthAlpha 2 globulin Elph (U) [Mass fraction]Urine alpha 2 globulin/total protein ratio by electrophoresis.Madison HealthUrine beta globulin measurement by electrophoresis (mass/volume)Ordered By: Roxane Bills on 72-37-5871Mbso globulin Elph (U) [Mass/Vol]32.8 %.Madison HealthBeta globulin Elph (U) [Mass/Vol]Urine beta globulin measurement by electrophoresis (mass/volume).[facility] A1C HEMOGLOBINon 59-59-9330WjL9k (Bld) [Mass fraction]6.7 %[facility] [employer] Other HbA1c (Bld) [Mass fraction]on 07-28-9335U5Y HEMOGLOBIN [facility] [employer] Other Thyroid Stim Hormone w/Rflxon 97-54-0047Wlxsdqb Stim Hormone w/Rflx3.310.45-5.33[facility] [employer] Other Vital Signs Date TimeVital SignValuePerforming UxluyazksTtzeaqay51-24-8784 13:42-0500Body audhll793.4 cmGloria Story To College Work Phone: [facility]11-10-2025 13:42-0500 Body mass index (BMI) [Ratio]42.5 kg/k8Oxhzmn [facility] DO Work Phone: [phone] [place], [place] [address]83111-10-2025 13:42-0500 Body mnxqocudgij43.8 [degF]Peri Tyson DO Work Phone: [phone] [place], [place] 5015011-10-2025 13:42-0500 Body .88 kgGloria Tyson DO Work Phone: [phone] [place], [place] 5015011-10-2025 13:42-0500 Diastolic blood rhfkyxku54 mm[Hg]Peri Tyson DO Work Phone: [phone] [place], [place] 5015011-10-2025 13:42-0500 Heart rate83 /minGloria Tyson DO Work Phone: [phone] [place], [place] 5[address]011-10-2025 13:42-0500 Respiratory rate16 /minGloria Tyson DO Work Phone: [phone] [place], [place] 5015011-10-2025 13:42-0500 SaO2% (BldA) [Mass fraction]100 %Peri Tyson DO Work Phone: [phone] [place], [place] 5015011-10-2025 13:42-0500 Systolic blood boxfrfxt169 mm[Hg]Peri Tyson DO Work Phone: [phone] [place], [place] 5015011-05-2025 14:13-0500 Inhaled oxygen flow rate3 L/minGloria Tyson DO Work Phone: 1(616)[address] [place], [place] 5015011-05-2025 14:10-0500 Body mvzjufzwrtj03.6 [degF]Peri Tyson DO Work Phone: 1(171)[address] [place], [place] 5015011-05-2025 14:10-0500 Diastolic blood wqbetvso06 mm[Hg]Peri Tyson DO Work Phone: 1(218)[address] [place], [place] 5015011-05-2025 14:10-0500 Heart rate82 /minGloria Tyson DO Work Phone: 1(338)[address] [place], [place] 5015011-05-2025 14:10-0500 Respiratory rate19 /minGloria Tyson DO Work Phone: 1(010)[address] [place], [place] 5015011-05-2025 14:10-0500 SaO2% (BldA) [Mass fraction]99 %Peri Tyson DO Work Phone: 1(313)[address] [place], [place] 5015011-05-2025 14:10-0500 Systolic blood exxkzvaq836 mm[Hg]Peri Tyson DO Work Phone: 1(645)[address] [place], [place] 5015010-31-2025 06:44-0400 Body gyfxeb728.4 cmGloria Tyson DO Work Phone: 1(453)[address] [place], [place] 5015010-31-2025 06:44-0400 Body mass index (BMI) [Ratio]42.3 kg/d4Xczglk Tyson DO Work Phone: 1(122)[address] [place], [place] 5015010-31-2025 06:44-0400 Body qfucen08.42 kgGloria Tyson DO Work Phone: 1(927)[address] [place], [place] 5015010-31-2025 06:44-0400 Diastolic blood wbnzleol68 mm[Hg]Peri Tyson DO Work Phone: 1(006)[address] [place], [place] 5015010-31-2025 06:44-0400 Heart rate96 /minGloria Tyson DO Work Phone: 1(737)[address] [place], [place] 5015010-31-2025 06:44-0400 Inhaled oxygen flow rate4 L/minGloria Tyson DO Work Phone: 1(427)[address] [place], [place] 5015010-31-2025 06:44-0400 Respiratory rate18 /minGloria Tyson DO Work Phone: 1(902)[address] [place], [place] 5015010-31-2025 06:44-0400 SaO2% (BldA) [Mass fraction]98 %Peri Tyson DO Work Phone: 1(277)[address] [place], [place] 5015010-31-2025 06:44-0400 Systolic blood ozprfeqz322 mm[Hg]Peri Tyson DO Work Phone: 1(594)[address] [place], [place] 5015010-29-2025 09:31-0400 Body zqxppanfbom86.5 [degF]Peri Tyson DO Work Phone: 1(930)[address] [place], [place] 5015010-29-2025 09:31-0400 Body pygxrs00.88 kgGloria Tyson DO Work Phone: 1(010)[address] [place], [place] 5015010-29-2025 09:31-0400 Diastolic blood xghieryi19 mm[Hg]Peri Tyson DO Work Phone: 1(981)[address] [place], [place] 5015010-29-2025 09:31-0400 Heart rate91 /minGloria Tyson DO Work Phone: 1(168)[address] [place], [place] 5015010-29-2025 09:31-0400 Inhaled oxygen flow rate4 L/minGloria Tyson DO Work Phone: 1(194)[address] [place], [place] 5015010-29-2025 09:31-0400 Respiratory rate20 /minGloria Tyson DO Work Phone: 1(712)[address] [place], [place] 5015010-29-2025 09:31-0400 SaO2% (BldA) [Mass fraction]99 %Peri Tyson DO Work Phone: 1(915)[address] [place], [place] 5015010-29-2025 09:31-0400 Systolic blood ggsxbzaq341 mm[Hg]Peri Tyson DO Work Phone: 1(997)[address] [place], [place] 5015010-08-2025 11:29-0400 Body vinrebasvdy15.7 [degF]Peri Tyson DO Work Phone: 1(455)[address] [place], [place] 5015010-08-2025 11:29-0400 Body byauld48.42 kgGloria Tyson DO Work Phone: 1(666)[address] [place], [place] 5015010-08-2025 11:29-0400 Diastolic blood clifrlkq57 mm[Hg]Peri Tyson DO Work Phone: 1(488)[address] [place], [place] 5015010-08-2025 11:29-0400 Heart rate69 /minGloria Tyson DO Work Phone: 1(776)[address] [place], [place] 5015010-08-2025 11:29-0400 Respiratory rate16 /minGloria Tyson DO Work Phone: 1(477)[address] [place], [place] 5015010-08-2025 11:29-0400 SaO2% (BldA) [Mass fraction]100 %Peri Tyson DO Work Phone: 1(450)[address] [place], [place] 5015010-08-2025 11:29-0400 Systolic blood gaypmtuk565 mm[Hg]Peri Tyson DO Work Phone: 1(423)[address] [place], [place] 5015009-20-2025 11:12-0400 Body iahsrwwtslz87.2 [degF]Peri Tyson DO Work Phone: 1(193)[address] [place], [place] 5015009-20-2025 11:12-0400 Diastolic blood ndqudiwo38 mm[Hg]Peri Tyson DO Work Phone: 1(660)[address] [place], [place] 5015009-20-2025 11:12-0400 Heart rate54 /minGloria Tyson DO Work Phone: 1(664)[address] [place], [place] 5015009-20-2025 11:12-0400 Inhaled oxygen flow rate3 L/minGloria Tyson DO Work Phone: 1(691)[address] [place], [place] 5015009-20-2025 11:12-0400 Respiratory rate18 /minGloria Tyson DO Work Phone: 1(455)[address] [place], [place] 5015009-20-2025 11:12-0400 SaO2% (BldA) [Mass fraction]98 %Peri Tyson DO Work Phone: 1(496)[address] [place], [place] 5015009-20-2025 11:12-0400 Systolic blood uqfhyddc610 mm[Hg]Peri Tyson DO Work Phone: 1(622)[address] [place], [place] 5015009-20-2025 05:28-0400 Body wasyaw067.3 kgGloria Tyson DO Work Phone: 1(574)[address] [place], [place] 5015009-17-2025 13:47-0400 Body kmpatk836.4 cmGloria Tyson DO Work Phone: 1(486)[address] [place], [place] 5015009-16-2025 23:50-0400 Body xrjmao406.4 cmGloria Tyson DO Work Phone: 1(082)[address] [place], [place] 5015009-16-2025 23:50-0400 Body aqhqznyoegi67.9 [degF]Peri Tyson DO Work Phone: 1(290)[address] [place], [place] 5015009-16-2025 23:50-0400 Body eqrqyg952.9 kgGloria Tyson DO Work Phone: 1(637)[address] [place], [place] 5015009-16-2025 23:50-0400 Diastolic blood hqjhoeau72 mm[Hg]Peri Tyson DO Work Phone: 1(109)[address] [place], [place] 5015009-16-2025 23:50-0400 Heart rate86 /minGloria Tyson DO Work Phone: 1(405)[address] [place], [place] 5015009-16-2025 23:50-0400 Respiratory rate20 /minGloria Tyson DO Work Phone: 1(250)[address] [place], [place] 5015009-16-2025 23:50-0400 SaO2% (BldA) [Mass fraction]96 %Peri Tyson DO Work Phone: 1(442)[address] [place], [place] 5015009-16-2025 23:50-0400 Systolic blood nyaqgxfw483 mm[Hg]Peri Tyson DO Work Phone: 1(446)[address] [place], [place] 5015009-16-2025 22:53-0400 Inhaled oxygen flow rate5 L/minGloria Tyson DO Work Phone: 1(671)[address] [place], [place] 5015009-15-2025 13:15-0400 Body egjyfo347.4 cmGloria Tyson DO Work Phone: 1(923)[address] [place], [place] 5015009-15-2025 13:15-0400 Body cylkmtjiozv179 [degF]Peri Tyson DO Work Phone: 1(357)[address] [place], [place] 5015009-15-2025 13:15-0400 Body azzjco908.4 kgGloria Tyson DO Work Phone: 1(657)[address] [place], [place] 5015009-15-2025 13:15-0400 Diastolic blood kbsrduby24 mm[Hg]Peri Tyson DO Work Phone: 1(780)[address] [place], [place] 5015009-15-2025 13:15-0400 Heart rate66 /minGloria Tyson DO Work Phone: 1(720)[address] [place], [place] 5015009-15-2025 13:15-0400 Inhaled oxygen flow rate4 L/minGloria Tyson DO Work Phone: 1(353)[address] [place], [place] 5015009-15-2025 13:15-0400 Respiratory rate16 /minGloria Tyson DO Work Phone: 1(870)[address] [place], [place] 5015009-15-2025 13:15-0400 SaO2% (BldA) [Mass fraction]94 %Peri Tyson DO Work Phone: 1(253)[address] [place], [place] 5015009-15-2025 13:15-0400 Systolic blood pyvyoolq056 mm[Hg]Peri Tyson DO Work Phone: 1(228)[address] [place], [place] 5015009-10-2025 09:11-0400 Body khxqbyabyck54.2 [degF]Peri Tyson DO Work Phone: 1(348)[address] [place], [place] 5015009-10-2025 09:11-0400 Diastolic blood rghdhedv43 mm[Hg]Peri Tyson DO Work Phone: 1(842)[address] [place], [place] 5015009-10-2025 09:11-0400 Heart rate74 /minGloria Tyson DO Work Phone: 1(229)[address] [place], [place] 5015009-10-2025 09:11-0400 Inhaled oxygen flow rate3 L/minGloria Tyson DO Work Phone: 1(497)[address] [place], [place] 5015009-10-2025 09:11-0400 Respiratory rate20 /minGloria Tyson DO Work Phone: 1(104)[address] [place], [place] 5015009-10-2025 09:11-0400 SaO2% (BldA) [Mass fraction]99 %Peri Tyson DO Work Phone: 1(804)[address] [place], [place] 5015009-10-2025 09:11-0400 Systolic blood uvcxbvyk276 mm[Hg]Peri Tyson DO Work Phone: 1(902)[address] [place], [place] 5015009-10-2025 08:42-0400 Body tqmeslrscvu40.2 [degF]Peri Tyson DO Work Phone: 1(500)[address] [place], [place] 5015009-10-2025 08:42-0400 Body hbscyr866.6 kgGloria Tyson DO Work Phone: 1(104)[address] [place], [place] 5015009-10-2025 08:42-0400 Diastolic blood appewqea86 mm[Hg]Peri Tyson DO Work Phone: 1(570)[address] [place], [place] 5015009-10-2025 08:42-0400 Heart rate74 /minGloria Tyson DO Work Phone: 1(715)[address] [place], [place] 5015009-10-2025 08:42-0400 Respiratory rate16 /minGloria Tyson DO Work Phone: 1(681)[address] [place], [place] 5015009-10-2025 08:42-0400 SaO2% (BldA) [Mass fraction]99 %Peri Tyson DO Work Phone: 1(117)[address] [place], [place] 5015009-10-2025 08:42-0400 Systolic blood gefujrvv822 mm[Hg]Peri Tyson DO Work Phone: 1(513)[address] [place], [place] 5015009-08-2025 08:48-0400 Body gpjepj071.4 cmMack Bigg DPM Work Phone: noSt[facility] HospitalVuuiredsic22-59-3285 08:48-0400Body mass index (BMI) [Ratio]45.7 kg/l9RcizssymMack Tsai DPM Work Phone: noms Yhqnrekvsn71-72-1310 08:48-0400Body .14 kgJoesphjenniemarilee Tsai DPM Work Phone: [facility] CenterUjnosjdmxa97-68-2046 08:48-0400Respiratory rate16 /minMack Tsai DPM Work Phone: [facility] CenterFtigxeenxi94-43-7607 10:16-0400Inhaled oxygen flow rate3 L/minGloria Tyson DO Work Phone: 1(704)[address] [place], [place] 5015008-26-2025 10:14-0400 Body kxsyfvfsgte60.7 [degF]Peri Tyson DO Work Phone: 1(330)[address] [place], [place] 5015008-26-2025 10:14-0400 Body audwte149.91 kgGloria Tyson DO Work Phone: 1(165)[address] [place], [place] 5015008-26-2025 10:14-0400 Diastolic blood eevxzrmk79 mm[Hg]Peri Tyson DO Work Phone: 1(660)[address] [place], [place] 5015008-26-2025 10:14-0400 Heart rate83 /minGloria Tyson DO Work Phone: 1(442)[address] [place], [place] 5015008-26-2025 10:14-0400 Respiratory rate20 /minGloria Tyson DO Work Phone: 1(031)[address] [place], [place] 5015008-26-2025 10:14-0400 SaO2% (BldA) [Mass fraction]99 %Peri Tyson DO Work Phone: 1(441)[address] [place], [place] 5015008-26-2025 10:14-0400 Systolic blood kyloadee477 mm[Hg]Peri Tyson DO Work Phone: 1(583)[address] [place], [place] 5015008-12-2025 10:05-0400 Inhaled oxygen flow rate3 L/minGloria Tyson DO Work Phone: 1(469)[address] [place], [place] 5015008-12-2025 10:03-0400 Body hounvcasidh89.6 [degF]Peri Tyson DO Work Phone: 1(423)[address] [place], [place] 5015008-12-2025 10:03-0400 Body exvcgbnclcp61.4 [degF]Peri Tyson DO Work Phone: 1(798)[address] [place], [place] 5015008-12-2025 10:03-0400 Body xoetqz811.95 kgGloria Tyson DO Work Phone: 1(445)[address] [place], [place] 5015008-12-2025 10:03-0400 Diastolic blood ftkbreqe21 mm[Hg]Peri Tyson DO Work Phone: 1(721)[address] [place], [place] 5015008-12-2025 10:03-0400 Diastolic blood pcbbwfix99 mm[Hg]Peri Tyson DO Work Phone: 1(368)[address] [place], [place] 5015008-12-2025 10:03-0400 Heart rate82 /minGloria Tyson DO Work Phone: 1(125)[address] [place], [place] 5015008-12-2025 10:03-0400 Heart rate72 /minGloria Tyson DO Work Phone: 1(726)[address] [place], [place] 5015008-12-2025 10:03-0400 Respiratory rate18 /minGloria Tyson DO Work Phone: 1(881)[address] [place], [place] 5015008-12-2025 10:03-0400 SaO2% (BldA) [Mass fraction]95 %Peri Tyson DO Work Phone: 1(152)[address] [place], [place] 5015008-12-2025 10:03-0400 SaO2% (BldA) [Mass fraction]98 %Peri Tyson DO Work Phone: 1(692)[address] [place], [place] 5015008-12-2025 10:03-0400 Systolic blood lobfebve759 mm[Hg]Peri Tyson DO Work Phone: 1(227)[address] [place], [place] 5015008-12-2025 10:03-0400 Systolic blood oibwwwjq199 mm[Hg]Peri Tyson DO Work Phone: 1(989)[address] [place], [place] 5015008-04-2025 10:17-0400 Body fujyax394.94 cmGloria Tyson DO Work Phone: [facility]08-04-2025 09:04-0400 Body zoamln357.4 Leila Aguilar MD Work Phone: 1(438)[address]08-04-2025 09:04-0400Body mass index (BMI) [Ratio]45.7 kg/l5ZzmdnJeannie Aguilar MD Work Phone: 1(524)[address] [place], [place] 8511808-04-2025 09:04-0400Body fayfqq302.14 kgJeannie Aguilar MD Work Phone: 1(045)[address] [place], [place] 8511808-04-2025 09:04-0400Diastolic blood hyvrpypj03 mm[Hg]Jeannie Aguilar MD Work Phone: 1(803)[address] [place], [place] 8511808-04-2025 09:04-0400Heart rate96 /min Jeannie Aguilar MD Work Phone: 1(151)[address] [place], [place] 8511808-04-2025 09:04-0400Respiratory rate18 /minJeannie Aguilar MD Work Phone: 1(922)[address] [place], [place] 8511808-04-2025 09:04-3011RhU2% (BldA) [Mass fraction]94 %Jeannie Aguilar MD Work Phone: 1(725)[address] [place], [place] 8511808-04-2025 09:04-0400Systolic blood witkntli097 mm[Hg]Jeannie Aguilar MD Work Phone: 1(921)[address] [place], [place] 8511807-17-2025 14:10-0400Body temperature 97.8 [degF]Peri Marbella DO Work Phone: [facility]07-17-2025 14:10-0400 Body tspzar990.32 kgGloria Tyson DO Work Phone: [facility]07-17-2025 14:10-0400 Diastolic blood jadcfcdb09 mm[Hg]Peri Marbella DO Work Phone: 1(567)[address] [place], [place] 5015007-17-2025 14:10-0400 Heart rate77 /minGloria Tyson DO Work Phone: 1(209)[address] [place], [place] 5015007-17-2025 14:10-0400 Respiratory rate16 /minGloria Tyson DO Work Phone: 1(454)[address] [place], [place] 5015007-17-2025 14:10-0400 SaO2% (BldA) [Mass fraction]95 %Peri Tyson DO Work Phone: 1(296)[address] [place], [place] 5015007-17-2025 14:10-0400 Systolic blood stjbhfik802 mm[Hg]Peri Tyson DO Work Phone: 1(293)[address] [place], [place] 5015006-26-2025 11:17-0400 Body flskwoacksu73.9 [degF]Peri Tyson DO Work Phone: 1(509)[address] [place], [place] 5015006-26-2025 11:17-0400 Body tqygsu245.87 kgGloria Tyson DO Work Phone: 1(129)[address] [place], [place] 5015006-26-2025 11:17-0400 Diastolic blood rgrtutxo17 mm[Hg]Peri Tyson DO Work Phone: 1(498)[address] [place], [place] 5015006-26-2025 11:17-0400 Heart rate60 /minGloria Tyson DO Work Phone: 1(221)[address] [place], [place] 5015006-26-2025 11:17-0400 Respiratory rate16 /minGloria Tyson DO Work Phone: 1(927)[address] [place], [place] 5015006-26-2025 11:17-0400 SaO2% (BldA) [Mass fraction]9 %Peri Tyson DO Work Phone: 1(311)[address] [place], [place] 5015006-26-2025 11:17-0400 Systolic blood hzyalqyx277 mm[Hg]Peri Tyson DO Work Phone: 1(956)[address] [place], [place] 5015006-20-2025 09:57-0400 Body qhraqe015.6 cmMack Tsai DPM Work Phone: [facility] CenterTctalkgjej33-80-8036 09:57-0400Body mass index (BMI) [Ratio]38.79 kg/k6ZislkhdeMack Tsai DPM Work Phone: [facility] CenterLtdzlqcffz32-10-6309 09:57-0400Body tjhzwa244.51 kgaMck Tsai DPM Work Phone: [facility] CenterOxtwamgxwz61-18-3492 09:57-0400Respiratory rate16 /minMack Tsai DPM Work Phone: [facility] CenterMhwlfbsekd96-56-5101 10:48-0400Diastolic blood mm[Hg]Peri Tyson DO Work Phone: 1(180)[address] [place], [place] 5015006-09-2025 10:48-0400 Heart rate78 /minGloria Tyson DO Work Phone: 1(880)[address] [place], [place] 5015006-09-2025 10:48-0400 Respiratory rate16 /minGloria Tyson DO Work Phone: 1(312)[address] [place], [place] 5015006-09-2025 10:48-0400 SaO2% (BldA) [Mass fraction]95 %Peri Tyson DO Work Phone: 1(132)[address] [place], [place] 5015006-09-2025 10:48-0400 Systolic blood btcutkvo030 mm[Hg]Peri Tyson DO Work Phone: 1(039)[address] [place], [place] 5015006-09-2025 09:18-0400 Body slxsla124.4 cmGloria Tyson DO Work Phone: 1(742)[address] [place], [place] 5015006-09-2025 09:18-0400 Body .23 kgGloria Tyson DO Work Phone: 1(824)[address] [place], [place] 5015005-21-2025 11:17-0400 Body .94 cmGloria Tyson DO Work Phone: 1(362)[address] [place], [place] 5015005-21-2025 11:17-0400 Body mass index (BMI) [Ratio]42.9 kg/w2Pfouyq Tyson DO Work Phone: 1(905)[address] [place], [place] 5015005-21-2025 11:17-0400 Body hnzobklleyx03.9 [degF]Peri Tyson DO Work Phone: 1(319)[address] [place], [place] 5015005-21-2025 11:17-0400 Body fnokwl706.96 kgGloria Tyson DO Work Phone: 1(574)[address] [place], [place] 5015005-21-2025 11:17-0400 Diastolic blood zcfvlugz81 mm[Hg]Peri Tyson DO Work Phone: 1(623)[address] [place], [place] 5015005-21-2025 11:17-0400 Heart rate73 /minGloria Tyson DO Work Phone: 1(439)[address] [place], [place] 5015005-21-2025 11:17-0400 Respiratory rate18 /minGloria Tyson DO Work Phone: 1(078)[address] [place], [place] 5015005-21-2025 11:17-0400 SaO2% (BldA) [Mass fraction]95 %Peri Tyson DO Work Phone: 1(001)[address] [place], [place] 5015005-21-2025 11:17-0400 Systolic blood cdxcsutn260 mm[Hg]Peri Tyson DO Work Phone: 1(251)[address] [place], [place] 5015005-15-2025 13:25-0400 Body ccatnu599.6 cmLeanne Radha DO Work Phone: 1(217)4[facility] CenterWdyrqpbnmd70-03-2842 13:25-0400Body mass index (BMI) [Ratio]38.79 kg/a4Cqvqbk Radha DO Work Phone: 1(203)8997154[facility] CenterQjurktpjyh51-32-5638 13:25-0400Body euzmwi693.51 kgLeanne Radha DO Work Phone: 1(943)648[facility] CenterFsuqjpgdwu18-02-7369 13:25-0400Heart rate75 /min Svetlana Radha DO Work Phone: [facility] CenterTvotrfipcn79-98-5971 13:25-6471XfV9% (BldA) [Mass fraction]98 %Svetlana Radha DO Work Phone: [facility] CenterMreooefrke58-75-3784 11:37-0400Body nsycjc761.4 Leila Aguilar MD Work Phone: [address] [place], [place] [address]Emrjrrnyjm58-40-6120 11:37-0400Body mass index (BMI) [Ratio]44.72 kg/r4HvvpsJeannie Aguilar MD Work Phone: [address] [place], [place] [address]Tnfrwbfwup94-58-6584 11:37-0400Body fzpgxu152.87 kgJeannie Aguilar MD Work Phone: 1(204)681-[address] [place], [place] [address]Ssvewpmylc27-84-1038 11:37-0400Diastolic blood egrzwubs56 mm[Hg]Jeannie Aguilar MD Work Phone: 1(679)023-[address] [place], [place] [address]Akovfesiou14-50-4605 11:37-0400Heart rate71 /min Jeannie Aguilar MD Work Phone: 1(152)793-[address] [place], [place] [address]Qbssnqpcyy63-29-3849 11:37-0400Respiratory rate16 /minJeannie Aguilar MD Work Phone: 1(401)731-[address] [place], [place] [address]Jncxmeokxz13-87-4252 11:37-7486EtF8% (BldA) [Mass fraction]95 %Jeannie Aguilar MD Work Phone: 1(078)226-[address] [place], [place] [address]Gnyulybdjj14-66-4064 11:37-0400Systolic blood gijuupyl051 mm[Hg]Jeannie Aguilar MD Work Phone: [address] [place], [place] [address]Uvzydjiwzu48-81-4243 08:27-0400Body yukfie930.94 cmGloria Tyson DO Work Phone: [facility]04-28-2025 08:27-0400 Body mass index (BMI) [Ratio]43.4 kg/v7Ahwzpz Tyson DO Work Phone: [facility]04-28-2025 08:27-0400 Body gkvjug814.43 kgGloria Tyson DO Work Phone: [facility]04-28-2025 08:27-0400 Diastolic blood imfyabrv98 mm[Hg]Peri Marbella DO Work Phone: 1(436)1-[address] [place], [place] 5983104-28-2025 08:27-0400 Heart rate79 /minGloria Marbella DO Work Phone: 1(871)3-[address] [place], [place] 5983104-28-2025 08:27-0400 Respiratory rate18 /minGloria Marbella DO Work Phone: 1(062)[address]04-28-2025 08:27-0400 SaO2% (BldA) [Mass fraction]97 %Periluis Tyson DO Work Phone: 1(579)[address]04-28-2025 08:27-0400 Systolic blood rcliyrwn416 mm[Hg]Peri Marbella DO Work Phone: 1(202)9-[address] [place], [place] 5983102-12-2025 10:41-0500 Body sjulgd710.4 Leila Aguilar MD Work Phone: [address] [place], [place] [address]Wcgfyegzxh77-63-9934 10:41-0500Body mass index (BMI) [Ratio]44.33 kg/p7TeayxJeannie Aguilar MD Work Phone: [facility] CenterCcrfyfnlou25-29-9271 10:41-0500Body suesjx025.97 kgJeannie Aguilar MD Work Phone: [address] [place], [place] [address]Lmjimwmoww32-40-6883 10:41-0500Diastolic blood jbszjxiz58 mm[Hg]Jeannie Aguilar MD Work Phone: [address] [place], [place] [address]Bgzpvdqyrz07-22-2439 10:41-0500Heart rate97 /min Jeannie Aguilar MD Work Phone: [address] [place], [place] [address]Htnpcuzrgg70-49-2765 10:41-0500Respiratory rate18 /minJeannie Aguilar MD Work Phone: [facility] CenterDixqllobep38-19-4635 10:41-4033ErY8% (BldA) [Mass fraction]94 %Jeannie Aguilar MD Work Phone: [facility] CenterKsrgigydmx07-27-2859 10:41-0500Systolic blood naueuhpw573 mm[Hg]Jeannie Aguilar MD Work Phone: [facility] CenterKbbuezbxla47-32-3244 08:28-0500Body syqmyf433.4 cmNicjenniemarilee Brown DPM Work Phone: [facility] CenterKcgfrippwl48-17-8109 08:28-0500Body mass index (BMI) [Ratio]48.63 kg/j6Hfthyaua Brown DPM Work Phone: [facility] CenterTahcubmzgk73-45-0570 08:28-0500Body mmhfyk329.95 kgNicholmarilee Brown DPM Work Phone: [facility] CenterZhtvoszngp62-28-2458 08:28-0500Respiratory rate18 /minNickaleb Brown DPM Work Phone: [facility] CenterOkaxkbxcfs10-32-6599 11:26-0500Body qywdes522.94 cmChristopher Germain DO Work Phone: 1(390)620-[address] [place], [place] 4850211-25-2024 11:26-0500 Body mass index (BMI) [Ratio]46.8 kg/v1Oqtcqyolmjd Germain DO Work Phone: 1(710)526-[facility]11-25-2024 11:26-0500 Body nciopq439.49 kgChristopher Germain DO Work Phone: 1(716)659-[address] [place], [place] 4850211-25-2024 11:26-0500 Diastolic blood qfiaraxo15 mm[Hg]Christopher Germain DO Work Phone: 1(955)134-[address] [place], [place] 4850211-25-2024 11:26-0500 Heart rate84 /minChristopher Germain DO Work Phone: 1(939)346-[address] [place], [place] 4850211-25-2024 11:26-0500 Respiratory rate18 /minChristopher Germain DO Work Phone: 2(708)594-[address] [place], [place] 8342711-25-2024 11:26-0500 SaO2% (BldA) [Mass fraction]95 %Brenden Groves DO Work Phone: [facility]11-25-2024 11:26-0500 Systolic blood okgvbpbj600 mm[Hg]Brenden Groves DO Work Phone: [facility]11-20-2024 13:25-0500 Body ydicxk511.94 cmGloria Tyson DO Work Phone: 1(630)[address] [place], [place] 5015011-20-2024 13:25-0500 Body mass index (BMI) [Ratio]46.3 kg/e3Tcjjmm Tyson DO Work Phone: 1(036)[address] [place], [place] 5015011-20-2024 13:25-0500 Body eiwzlhutbip60.4 [degF]Peri Marbella DO Work Phone: 1(788)[address] [place], [place] 5015011-20-2024 13:25-0500 Body nwsxoj838.13 kgGloria Tyson DO Work Phone: 1(578)[address] [place], [place] 5015011-20-2024 13:25-0500 Diastolic blood hydkxrev70 mm[Hg]Peri Tyson DO Work Phone: 1(130)[address] [place], [place] 5015011-20-2024 13:25-0500 Heart rate75 /minGloria Tyson DO Work Phone: 1(539)[address] [place], [place] 5015011-20-2024 13:25-0500 Respiratory rate18 /minGloria Tyson DO Work Phone: 1(479)[address] [place], [place] 5015011-20-2024 13:25-0500 SaO2% (BldA) [Mass fraction]95 %Peri Tyson DO Work Phone: 1(170)[address] [place], [place] 5015011-20-2024 13:25-0500 Systolic blood adbdliqq423 mm[Hg]Peri Tyson DO Work Phone: 1(951)[address] [place], [place] 5015010-29-2024 08:51-0400 Body piwzry737.4 cmDO Peri Tyson Work Phone: 1(091)[address] [place], [place] 5015010-29-2024 08:51-0400 Body mass index (BMI) [Ratio]47.2 kg/m2DO Peri Tyson Work Phone: 1(418)[address] [place], [place] 5015010-29-2024 08:51-0400 Body cmdpof315.76 kgDO Peri Tyson Work Phone: 1(653)[address] [place], [place] 5015010-29-2024 08:51-0400 Diastolic blood dvjbyiko48 mm[Hg]DO Peri Tyson Work Phone: 1(331)[address] [place], [place] 5015010-29-2024 08:51-0400 Heart rate59 /Ramos Tyson Work Phone: 1(038)[address] [place], [place] 5015010-29-2024 08:51-0400 Inhaled oxygen flow rate4 L/Ramos Tyson Work Phone: 1(928)[address] [place], [place] 5015010-29-2024 08:51-0400 Respiratory rate16 /Ramos Tyson Work Phone: 1(691)[address] [place], [place] 5015010-29-2024 08:51-0400 SaO2% (BldA) [Mass fraction]96 %DO Peri Tyson Work Phone: 1(633)[address] [place], [place] 5015010-29-2024 08:51-0400 Systolic blood emidvtee882 mm[Hg]DO Peri Tyson Work Phone: 1(186)[address] [place], [place] 5015010-22-2024 08:17-0400 Body dewyxu488.4 cmMack Tsai DPM Work Phone: [facility]gy[facility]-2982 08:17-0400Body mass index (BMI) [Ratio]48.63 kg/a1FmlrlussMack Tsai DPM Work Phone: [facility] CenterFvwizqswca85-63-4043 08:17-0400Body .95 kgMack Tsai DPM Work Phone: [facility] CenterIbzwxvyeuk36-92-5530 08:17-0400Diastolic blood ngqeqows20 mm[Hg]Mack Tsai DPM Work Phone: [facility] CenterWcpxdpyodk29-37-0299 08:17-0400Heart rate81 /min Mack Tsai DPM Work Phone: [facility] CenterGkhwlpyzmo71-37-8258 08:17-0400Systolic blood qqfmqoiz232 mm[Hg]Mack Tsai DPM Work Phone: [facility] CenterHossrsjfsw01-00-3644 10:51-0400Body .4 Leila Aguilar MD Work Phone: [facility] CenterIdlqdbvqgm28-93-0353 10:51-0400Body mass index (BMI) [Ratio]48.63 kg/m8PqmavJeannie Aguilar MD Work Phone: [facility] CenterHdjisgskcw48-90-2942 10:51-0400Body cedwju572.95 kgJeannie Aguilar MD Work Phone: [facility] CenterOcyvorrdxj33-72-9731 10:51-0400Diastolic blood mm[Hg]Jeannie Aguilar MD Work Phone: [address] [place], [place] [address]Wxutafphvq37-38-2628 10:51-0400Heart rate81 /min Jeannie Aguilar MD Work Phone: [facility] CenterJebdluuezp28-47-0984 10:51-0400Respiratory rate18 /minJeannie Aguilar MD Work Phone: [address] [place], [place] [address]Wlgknqgird57-95-0535 10:51-0400Systolic blood fudcasxy049 mm[Hg]Jeannie Aguilar MD Work Phone: [facility] CenterCjutigxfwh76-64-0224 13:41-0400Body aozeyl782.6 cmLkelsi Radha DO Work Phone: [facility] HospitalXdxjrukboy09-63-1768 13:41-0400Body mass index (BMI) [Ratio]41.54 kg/w4GzaiiaSvetlana Garcia DO Work Phone: 1(419)626-[address] [place], [place] [address]Tubdzozydu80-54-0633 13:41-0400Body xrihpj930.77 kgLeanne Radha DO Work Phone: 1(990)8-[facility] CenterAghzumfcgt63-64-2506 13:41-0400Diastolic blood elpykamu06 mm[Hg]Svetlana Radha DO Work Phone: 1(405)602-[facility] CenterAdxcfpvqrk11-02-9417 13:41-0400Heart rate97 /min Svetlana Radha DO Work Phone: 1(308)351-[facility] CenterBejarfnvsa23-19-1612 13:41-4594MiP7% (BldA) [Mass fraction]98 %Svetlana Radha DO Work Phone: 1(995)7-[facility] CenterYucpitofiw75-34-8429 13:41-0400Systolic blood bmfluwio899 mm[Hg]Svetlana Radha DO Work Phone: 1(666)8-[address] [place], [place] [address]Ozrnmetshn30-15-7621 10:17-0400Body temperature 97.9 [degF]DO Periluis Tyson Work Phone: 1(312)[address]05-22-2024 10:17-0400 Body jjeeiv039.49 kgDO Peri Tyson Work Phone: 1(646)[address]05-22-2024 10:17-0400 Diastolic blood worlughd31 mm[Hg]DO Peri Tyson Work Phone: 1(866)[address]05-22-2024 10:17-0400 Heart rate51 /minDO Peri Tyson Work Phone: 1(035)3-[address] [place], [place] 5983105-22-2024 10:17-0400 Inhaled oxygen flow rate4 L/minDO Peri Tyson Work Phone: 4(398)8-[address] [place], [place] 5983105-22-2024 10:17-0400 Respiratory rate16 /minDO Peri Tyson Work Phone: 1(054)198-[facility]05-22-2024 10:17-0400 SaO2% (BldA) [Mass fraction]96 %DO Peri Tyson Work Phone: [facility]05-22-2024 10:17-0400 Systolic blood exxqrcmw972 mm[Hg]DO Peri Tyson Work Phone: 1(778)9-[facility]04-29-2024 09:23-0400 Body wsgqsu588.4 cmDO Peri Tyson Work Phone: 1(004)[facility]04-29-2024 09:23-0400 Body mass index (BMI) [Ratio]49.4 kg/m2DO Peri Tyson Work Phone: 1(273)[address]04-29-2024 09:23-0400 Body kxguwd601.78 kgDO Peri Tyson Work Phone: 1(621)[address]04-29-2024 09:23-0400 Diastolic blood dtbnaiyi54 mm[Hg]DO Peri Tyson Work Phone: 1(402)[address] [place], [place] 5015004-29-2024 09:23-0400 Heart tlvk260 /Ramos Tyson Work Phone: 1(216)[address] [place], [place] 5015004-29-2024 09:23-0400 Inhaled oxygen flow rate4 L/Ramos Tyson Work Phone: 1(845)[address]04-29-2024 09:23-0400 Respiratory rate18 /Ramos Tyson Work Phone: 1(984)2-[address] [place], [place] 5983104-29-2024 09:23-0400 SaO2% (BldA) [Mass fraction]96 %DO Peri Tyson Work Phone: 1(577)5-[facility]04-29-2024 09:23-0400 Systolic blood pupkgjrn732 mm[Hg]DO Peri Tyson Work Phone: 1(239)069-[facility]02-14-2024 09:16-0500 Body .4 cmDO Brenden Groves Work Phone: [facility]02-14-2024 09:16-0500 Body mass index (BMI) [Ratio]48.8 kg/m2DO Christopher Germain Work Phone: 1(123)249-[address] [place], [place] 4850202-14-2024 09:16-0500 Body yhqvvasadjt59.4 [degF]DO Christopher Germain Work Phone: 1(865)477-[address] [place], [place] 4850202-14-2024 09:16-0500 Body zmpivn297.39 kgDO Christopher Germain Work Phone: 1(493)935-[address] [place], [place] 4850202-14-2024 09:16-0500 Diastolic blood xismxwes14 mm[Hg]DO Christopher Germain Work Phone: 1(280)161-[address] [place], [place] 4850202-14-2024 09:16-0500 Heart rate74 /minDO Christopher Germain Work Phone: 1(346)908-[address] [place], [place] 4850202-14-2024 09:16-0500 SaO2% (BldA) [Mass fraction]98 %DO Christopher Germain Work Phone: 1(852)259-[address] [place], [place] 4850202-14-2024 09:16-0500 Systolic blood mm[Hg]DO Christopher Germain Work Phone: 1(005)271-[address] [place], [place] 4850201-30-2024 08:28-0500 Body lcclak041.4 cmDO Christopher Germain Work Phone: 1(378)172-[address] [place], [place] 4850201-30-2024 08:28-0500 Body mass index (BMI) [Ratio]48.8 kg/m2DO Christopher Germain Work Phone: 1(773)265-[address] [place], [place] 4850201-30-2024 08:28-0500 Body mgntta199.39 kgDO Christopher Germain Work Phone: 1(214)410-[address] [place], [place] 4850201-30-2024 08:17-0500 Body evvhcadfbkr45.3 [degF]DO Periluis Tyson Work Phone: [facility]01-30-2024 08:17-0500 Diastolic blood mm[Hg]DO Peri Marbella Work Phone: 1(073)[address] [place], [place] 5015001-30-2024 08:17-0500 Heart kptk218 /minDO Peri Tyson Work Phone: 1(079)[address] [place], [place] 5015001-30-2024 08:17-0500 Respiratory rate18 /minDO Peri Tyson Work Phone: 1(004)[address] [place], [place] 5015001-30-2024 08:17-0500 Systolic blood oqxpbpuj119 mm[Hg]DO Periluis Tyson Work Phone: 1(285)[address] [place], [place] 5015001-16-2024 09:09-0500 Body cgegwy464.4 cmDO Peri Tyson Work Phone: 1(857)[address] [place], [place] 5015001-16-2024 09:09-0500 Body mass index (BMI) [Ratio]48.8 kg/m2DO Peri Tyson Work Phone: 1(654)[address] [place], [place] 5015001-16-2024 09:09-0500 Body .39 kgDO Peri Tyson Work Phone: 1(045)[address] [place], [place] 5015001-16-2024 08:50-0500 Body kxiusxgpazc64 [degF]DO Periluis Tyson Work Phone: 1(646)[address] [place], [place] 5015001-16-2024 08:50-0500 Diastolic blood mm[Hg]DO Periluis Tyson Work Phone: 1(606)[address] [place], [place] 5015001-16-2024 08:50-0500 Heart ekye749 /minDO Peri Tyson Work Phone: 1(878)[address] [place], [place] 5015001-16-2024 08:50-0500 Inhaled oxygen flow rate4 L/minDO Peri Tyson Work Phone: 1(701)[address] [place], [place] 5015001-16-2024 08:50-0500 Respiratory rate20 /minDO Peri Tyson Work Phone: 1(901)[address] [place], [place] 5015001-16-2024 08:50-0500 Systolic blood xqqczedf434 mm[Hg]DO Peri Tyson Work Phone: 1(849)[address] [place], [place] 5015011-22-2023 13:28-0500 Body qkdxdzgzbmu82.6 [degF]DO Peri Tyson Work Phone: 1(111)[address] [place], [place] 5015011-22-2023 13:28-0500 Body htwkfa974.22 kgDO Peri Tyson Work Phone: 1(526)[address] [place], [place] 5015011-22-2023 13:28-0500 Diastolic blood cggydikf89 mm[Hg]DO Peri Tyson Work Phone: 1(161)[address] [place], [place] 5015011-22-2023 13:28-0500 Heart rate87 /minDO Peri Tyson Work Phone: 1(112)[address] [place], [place] 5015011-22-2023 13:28-0500 Inhaled oxygen flow rate4 L/minDO Peri Tyson Work Phone: 1(014)[address] [place], [place] 5015011-22-2023 13:28-0500 Respiratory rate16 /minDO Peri Tyson Work Phone: 1(420)[address] [place], [place] 5015011-22-2023 13:28-0500 SaO2% (BldA) [Mass fraction]97 %DO Peri Tyson Work Phone: 1(838)[address] [place], [place] 5015011-22-2023 13:28-0500 Systolic blood imkquddn182 mm[Hg]DO Peri Tyson Work Phone: 1(939)[address] [place], [place] 5015011-02-2023 10:15-0400 Diastolic blood rwkbvxig06 mm[Hg]DO Peri Tyson Work Phone: 1(407)[address] [place], [place] 5015011-02-2023 10:15-0400 Heart rate77 /minDO Peri Tyson Work Phone: 1(334)[address] [place], [place] 5015011-02-2023 10:15-0400 Inhaled oxygen flow rate4 L/minDO Peri Tyson Work Phone: 1(809)[facility] [place], [place] 5983111-02-2023 10:15-0400 Respiratory rate18 /MiguelangelO Peri Tyson Work Phone: 1(937)[address] [place], [place] 5015011-02-2023 10:15-0400 SaO2% (BldA) [Mass fraction]97 %DO Peri Tyson Work Phone: 1(058)[address] [place], [place] 5015011-02-2023 10:15-0400 Systolic blood zplyostu738 mm[Hg]DO Peri Tyson Work Phone: 1(063)[address] [place], [place] 5015011-02-2023 08:15-0400 Body .4 cmDO Peri Tyson Work Phone: 1(566)[address] [place], [place] 5015011-02-2023 08:15-0400 Body .86 kgDO Peir Tyson Work Phone: 1(988)[address] [place], [place] 5015010-27-2023 09:00-0400 Body kixmvq738.4 cmPeri Tyson Other [employer] Other [id number] 09:00-0400Body mass index (BMI) [Ratio] 48.43 kg/k5Wgcmyl Tyson Other [facility] [employer] Other [id number] 09:00-0400Body .49 kgPeri Tyson Other [facility] [employer] Other 10-27-2023 09:00-0400Diastolic blood ansjlrrl90 mm[Hg] Peri Marbella Other [employer] Other 10-27-2023 09:00-0400Respiratory rate20 /minPeri Tyson Other [employer] Other 10-27-2023 09:00-0271OaC2% (BldA) [Mass fraction]99 % Periroyce Tyson Other [place] [employer] Other 10-27-2023 09:00-0400Systolic blood mm[Hg] Periroyce Tyson Other [place] [employer] Other [id number] 08:55-0400Body syqzvjtpgjj55.5 [degF]DO Peri Tyson Work Phone: 1(181)[address] [place], [place] 5015010-19-2023 08:55-0400 Body okqulg886.94 kgDO Peri Tyson Work Phone: 1(514)[address] [place], [place] 5015010-19-2023 08:55-0400 Diastolic blood tfvjavfr67 mm[Hg]DO Periluis Tyson Work Phone: 1(184)[address] [place], [place] 5015010-19-2023 08:55-0400 Heart rate82 /minDO Periluis Tyson Work Phone: 1(714)[address] [place], [place] 5015010-19-2023 08:55-0400 Respiratory rate16 /minDO Periluis Tyson Work Phone: 1(995)[address] [place], [place] 5015010-19-2023 08:55-0400 SaO2% (BldA) [Mass fraction]98 %DO Peri Marbella Work Phone: 1(881)[address] [place], [place] 5015010-19-2023 08:55-0400 Systolic blood dimzpwse662 mm[Hg]DO Peri Marbella Work Phone: 1(026)[address] [place], [place] 5015010-02-2023 08:00-0400 Body .4 cmDebor Blades Other [place] [employer] Other 10-02-2023 08:00-0400Body mass index (BMI) [Ratio] 47.84 kg/g7Yosiogm Artoovic Other [employer] Other 10-02-2023 08:00-0400Body vamsfd879.13 kgDetrice Artoovic Other [facility] [employer] Other 10-02-2023 08:00-0400Diastolic blood objdcpnt750 mm[Hg]Patsy Artoos Other [facility] [employer] Other 10-02-2023 08:00-0400Systolic blood qewbnzpd017 mm[Hg] Patsy Artoos Other [facility] [employer] Other 09-07-2023 13:38-0400Diastolic blood vgkqeiyc85 mm[Hg] DO Peri Tyson Work Phone: 1(182)734-[facility]09-07-2023 13:38-0400 Heart rate77 /minDO Peri Tyson Work Phone: 1(355)569-[facility]09-07-2023 13:38-0400 Inhaled oxygen flow rate4 L/minDO Peri Tyson Work Phone: 1(356)903-[facility]09-07-2023 13:38-0400 Respiratory rate16 /minDO Peri Tyson Work Phone: 1(452)714-[facility]09-07-2023 13:38-0400 SaO2% (BldA) [Mass fraction]97 %DO Peri Tyson Work Phone: 1(885)390-[facility]09-07-2023 13:38-0400 Systolic blood jolshusd479 mm[Hg]DO Peri Tyson Work Phone: 1(147)343-[facility]09-07-2023 11:03-0400 Body pmamiv520.4 cmDO Peri Tyson Work Phone: 1(642)971-[facility]09-07-2023 11:03-0400 Body mass index (BMI) [Ratio]44.9 kg/m2DO Peri Tyson Work Phone: 1(419)6-[facility]09-07-2023 11:03-0400 Body locwgz119.32 kgDO Peri Tyson Work Phone: 1(890)6-[address] [place], [place] 5983109-07-2023 09:34-0400 Body ksclrveqsof41.1 [degF]DO Peri Tyson Work Phone: 1(993)3-[address] [place], [place] 5983106-06-2023 11:30-0400 Body medvfv057.4 cmGlanh Tyson Other [employer] Other 06-06-2023 11:30-0400Body mass index (BMI) [Ratio] 45.19 kg/w8EuwjgnPeri Tyson Other [employer] Other 06-06-2023 11:30-0400Body uugrwl051.96 kgPeri Marbella Other [employer] Other 06-06-2023 11:30-0400Diastolic blood xoayuzzr84 mm[Hg] Peri Tyson Other [employer] Other 06-06-2023 11:30-0400Respiratory rate20 /minPeri Tyson Other [employer] Other 06-06-2023 11:30-3806PiO9% (BldA) [Mass fraction]99 % Peri Tyson Other [employer] Other 06-06-2023 11:30-0400Systolic blood uplewvwa138 mm[Hg] Peri Tyson Other [employer] Other [id number] 15:04-0400Body xepdezwihrs47.8 [degF]DO Peri Tyson Work Phone: 1(885)9-[address] [place], [place] 5983104-19-2023 15:04-0400 Body bnoocf142.41 kgDO Peri Tyson Work Phone: 1(511)[address]04-19-2023 15:04-0400 Diastolic blood gsvfguio19 mm[Hg]DO Periluis Tyson Work Phone: 1(534)[address]04-19-2023 15:04-0400 Heart rate82 /Ramos Whitt Tyson Work Phone: 1(342)[address]04-19-2023 15:04-0400 Respiratory rate16 /Ramos Whitt Tyson Work Phone: 1(164)2-[address] [place], [place] 5983104-19-2023 15:04-0400 SaO2% (BldA) [Mass fraction]97 %DO Peri Tyson Work Phone: 1(952)[address]04-19-2023 15:04-0400 Systolic blood gifhcbzr173 mm[Hg]DO Periluis Tyson Work Phone: 1(862)6-[address] [place], [place] 5983103-27-2023 10:00-0400 Body ebatwy301.4 cmLulú Ruth Other [place] [employer] Other 03-27-2023 10:00-0400Body mass index (BMI) [Ratio] 44.33 kg/j9VzfmekLulú Ruth Other [place] [employer] Other 03-27-2023 10:00-0400Body ujaahlawsxs74.8 [degF]Lulú Ruth Other [place] [employer] Other 03-27-2023 10:00-0400Body .97 kgLulú Ruth Other [place] [employer] Other 03-27-2023 10:00-0400Diastolic blood mm[Hg] Lulú Ruth Other [place] [employer] Other 03-27-2023 10:00-4978NxA7% (BldA) [Mass fraction]98 % Lulú Ruth Other [place] [employer] Other 03-27-2023 10:00-0400Systolic blood meyxhwvi277 mm[Hg] Lulú Ruth Other [place] [employer] Other 01-30-2023 15:11-0500Diastolic blood epwrdhhi65 mm[Hg] DO Peri Tyson Work Phone: [facility]01-30-2023 15:11-0500 Heart rate65 /minDO Peri XGIMI Work Phone: 6(987)858-[facility]01-30-2023 15:11-0500 Inhaled oxygen flow rate4 L/minDO Peri Tyson Work Phone: 3(465)841-[facility]01-30-2023 15:11-0500 Respiratory rate18 /minDO Peri Tyson Work Phone: [facility]01-30-2023 15:11-0500 SaO2% (BldA) [Mass fraction]98 %DO Peri Tyson Work Phone: [facility]01-30-2023 15:11-0500 Systolic blood kdqyvxus259 mm[Hg]DO Peri Tyson Work Phone: [facility]01-30-2023 14:20-0500 Body kgchggucgby76 [degF]DO Peri Tyson Work Phone: 1(781)799-[facility]01-25-2023 11:00-0500 Body .4 cmGlanh Tyson Other [place] [employer] Other [id number] 11:00-0500Body mass index (BMI) [Ratio] 45.66 kg/q8Cadkpy Tyson Other [place] [employer] Other [id number] 11:00-0500Body qolqdn298.05 kgPeri Marbella Other [place] [employer] Other [id number] 11:00-0500Diastolic blood qkkrghee47 mm[Hg] Peri Marbella Other [place] [employer] Other [id number] 11:00-0500Respiratory rate20 /minGlanh Tyson Other [place] [employer] Other 01-25-2023 11:00-7004QnM7% (BldA) [Mass fraction]99 % Peri Tyson Other [place] [employer] Other [phone] 11:00-0500Systolic blood xomzwusp167 mm[Hg] Peri Tyson Other [place] [employer] Other 01-11-2023 10:55-0500Body .4 cmDO Giovanni Josh Work Phone: 1(475)9-[facility]01-11-2023 10:55-0500 Body tcofyq060.3 kgDO Giovanni Josh Work Phone: 1(972)0-[address] [place], [place] 5983101-11-2023 10:55-0500 Diastolic blood wyuwuplg66 mm[Hg]DO Giovanni Moreno Work Phone: 1(306)8-[facility]01-11-2023 10:55-0500 Heart rate75 /Ramos Moreno Work Phone: 1(593)[address] [place], [place] 5015001-11-2023 10:55-0500 Inhaled oxygen flow rate5 L/Ramos Moreno Work Phone: 1(452)[address] [place], [place] 5015001-11-2023 10:55-0500 Respiratory rate20 /Ramos Moreno Work Phone: 1(606)[address] [place], [place] 5015001-11-2023 10:55-0500 SaO2% (BldA) [Mass fraction]100 %DO Giovanni Moreno Work Phone: 1(349)[address] [place], [place] 5015001-11-2023 10:55-0500 Systolic blood ghukmjuc542 mm[Hg]DO Giovanni Moreno Work Phone: 1(846)[address] [place], [place] 5015010-24-2022 11:00-0400 Body slugxu547.4 cmPeri Tyson Other [place] [employer] Other 10-24-2022 11:00-0400Body mass index (BMI) [Ratio] 46.59 kg/s3EeupwbPeri Tyson Other [place] [employer] Other 10-24-2022 11:00-0400Body .23 kgPeri Tyson Other [place] [employer] Other 10-24-2022 11:00-0400Diastolic blood yebtmkjq13 mm[Hg] Peri Tyson Other [place] [employer] Other 10-24-2022 11:00-0400Respiratory rate20 /minPeri Tyson Other [place] [employer] Other 10-24-2022 11:00-7294ZlU2% (BldA) [Mass fraction]99 % Periluis Tyson Other [employer] Other 10-24-2022 11:00-0400Systolic blood aryrzpau327 mm[Hg] Peri Marbella Other [employer] Other 09-12-2022 14:30-0400Body pkazko367.4 cmGlanh Tyson Other [employer] Other [id number] 14:30-0400Body mass index (BMI) [Ratio] 47.28 kg/i2Rsyywoanh Tyson Other [employer] Other [id number] 14:30-0400Body .82 kgGlanh Tyson Other [employer] Other 09-12-2022 14:30-0400Diastolic blood vpibqzjh63 mm[Hg] Periluis Tyson Other [employer] Other 09-12-2022 14:30-0400Respiratory rate20 /minGlanh Tyson Other [employer] Other 09-12-2022 14:30-0596TgG8% (BldA) [Mass fraction]100 % Periluis Tyson Other [employer] Other 09-12-2022 14:30-0400Systolic blood dbuuwfyl783 mm[Hg] Peri Marbella Other [employer] Other 07-13-2022 13:14-0400Body qwbyyfeiflg66 [degF]DO Giovanni Moreno Work Phone: 1(218)[address] [place], [place] 5015007-13-2022 13:14-0400 Body bamgfw854.67 kgDO Giovanni Moreno Work Phone: 1(732)[address] [place], [place] 5015007-13-2022 13:14-0400 Diastolic blood nfsormwi22 mm[Hg]DO Giovanni Moreno Work Phone: 1(537)[address] [place], [place] 5015007-13-2022 13:14-0400 Heart rate70 /Ramos Moreno Work Phone: 1(053)[address] [place], [place] 5015007-13-2022 13:14-0400 Respiratory rate16 /Ramos Moreno Work Phone: 1(019)[address] [place], [place] 5015007-13-2022 13:14-0400 SaO2% (BldA) [Mass fraction]97 %DO Giovanni Moreno Work Phone: 1(120)[address] [place], [place] 5015007-13-2022 13:14-0400 Systolic blood mm[Hg]DO Giovanni Moreno Work Phone: 1(188)[address] [place], [place] 5015007-11-2022 14:45-0400 Body rpiepa638.4 cmGiovanni Moreno Other [facility] [employer] Other 07-11-2022 14:45-0400Body mass index (BMI) [Ratio] 48.08 kg/m2HprveGiovanni Moreno Other [employer] Other 07-11-2022 14:45-0400Body ssiesj780.68 kgGiovanni Moreno Other [employer] Other 07-11-2022 14:45-0400Diastolic blood lxdeykdv99 mm[Hg] Giovanni Moreno Other [facility] Other 07-11-2022 14:45-0400Respiratory rate20 /minGiovanni Moreno Other [place] [employer] Other 07-11-2022 14:45-2747PuJ3% (BldA) [Mass fraction]99 % Giovanni Moreno Other [place] [employer] Other 07-11-2022 14:45-0400Systolic blood wuwqjhyk879 mm[Hg] Giovanni Moreon Other [place] [employer] Other 06-16-2022 11:50-0400Diastolic blood hwjwlozw33 mm[Hg] DO Giovanni Moreno Work Phone: 1(091)[address]06-16-2022 11:50-0400 Heart rate75 /Ramos Moreno Work Phone: 1(413)397-[address] [place], [place] 5983106-16-2022 11:50-0400 Inhaled oxygen flow rate5 L/Ramos Moreno Work Phone: 1(021)[address]06-16-2022 11:50-0400 Respiratory rate16 /Ramos Moreno Work Phone: 1(003)[address]06-16-2022 11:50-0400 SaO2% (BldA) [Mass fraction]100 %DO Giovanni Moreno Work Phone: 1(555)370-[facility]06-16-2022 11:50-0400 Systolic blood chkwteyw514 mm[Hg]DO Giovanni Moreno Work Phone: 1(188)571-[address] [place], [place] 5983106-16-2022 09:07-0400 Body .4 cmDO Giovanni Moreno Work Phone: 1(956)102-[address] [place], [place] 5983106-16-2022 09:07-0400 Body mass index (BMI) [Ratio]48.2 kg/m2DO Giovanni Moreno Work Phone: [facility]06-16-2022 09:07-0400 Body lokvue570.03 kgDO Giovanni Moreno Work Phone: [facility]05-12-2022 15:00-0400 Body qkexvo800.4 cmStelma Mckeon Other [facility] [employer] Other [id number] 15:00-0400Body mass index (BMI) [Ratio] 49.21 kg/x9Zetacg Zaky Other [facility] [employer] Other 05-12-2022 15:00-0400Body covcyj378.31 kgShsharlalukas Mckeon Other [facility] [employer] Other 05-12-2022 15:00-0400Diastolic blood gaetfpuz55 mm[Hg] Nicko Mckeon Other [facility] [employer] Other 05-12-2022 15:00-1561UgE2% (BldA) [Mass fraction]97 % Nicko Mckeon Other [facility] [employer] Other 05-12-2022 15:00-0400Systolic blood mm[Hg] Nicko Mckeon Other [employer] Other 05-06-2022 10:08-0400Body amwiur250.4 cmDO Giovanni Moreno Work Phone: [facility]04-27-2022 10:00-0400 Body euvheq346.4 cmGiovanni Moreno Other [facility] [employer] Other 04-27-2022 10:00-0400Body mass index (BMI) [Ratio] 50.03 kg/t7VpaobGiovanni Moreno Other [employer] Other 04-27-2022 10:00-0400Body jruqcb907.21 kgGiovanni Moreno Other [employer] Other 04-27-2022 10:00-0400Diastolic blood noovdyze94 mm[Hg] Giovanni Moreno Other [employer] Other 04-27-2022 10:00-0400Respiratory rate20 /minGiovanni Moreno Other [employer] Other 04-27-2022 10:00-6212YkL4% (BldA) [Mass fraction]99 % Giovanni Moreno Other [employer] Other 04-27-2022 10:00-0400Systolic blood mm[Hg] Giovanni Moreno Other [employer] Other 04-11-2022 10:30-0400Body xasres752.4 cmGiovanni Moreno Other [employer] Other 04-11-2022 10:30-0400Body mass index (BMI) [Ratio] 49.05 kg/c7BqzraGiovanni Moreno Other [employer] Other 04-11-2022 10:30-0400Body .94 kgGiovanni Moreno Other [employer] Other 04-11-2022 10:30-0400Diastolic blood mxadxilr74 mm[Hg] Giovanni Moreno Other [employer] Other 04-11-2022 10:30-0400Respiratory rate20 /minGiovanni Moreno Other [employer] Other 04-11-2022 10:30-3610DwK4% (BldA) [Mass fraction]99 % Giovanni Moreno Other [employer] Other 04-11-2022 10:30-0400Systolic blood tujtqtlm683 mm[Hg] Giovanni Moreno Other [employer] Other 03-10-2022 10:45-0500Body abxnsj331.4 cmGiovanni Moreno Other [employer] Other 03-10-2022 10:45-0500Body mass index (BMI) [Ratio] 48.43 kg/c1CtmcwGiovanni Moreno Other [employer] Other 03-10-2022 10:45-0500Body jcgwer638.49 kgGiovanni Moreno Other [employer] Other 03-10-2022 10:45-0500Diastolic blood ewzbsimu98 mm[Hg] Giovanni Moreno Other [employer] Other 03-10-2022 10:45-0500Respiratory rate20 /minGiovanni Moreno Other [employer] Other 03-10-2022 10:45-4809XaJ3% (BldA) [Mass fraction]99 % Giovanni Moreno Other [employer] Other 03-10-2022 10:45-0500Systolic blood okbxvfwp474 mm[Hg] Giovanni Moreno Other [employer] Other 02-10-2022 10:30-0500Body .4 cmGiovanni Morneo Other [employer] Other 02-10-2022 10:30-0500Body mass index (BMI) [Ratio] 48.23 kg/r9YwypxGiovanni Moreno Other [employer] Other 02-10-2022 10:30-0500Body obntwz455.04 kgGiovanni Moreno Other [employer] Other 02-10-2022 10:30-0500Diastolic blood gwkolesw69 mm[Hg] Giovanni Moreno Other [employer] Other 02-10-2022 10:30-0500Respiratory rate20 /minGiovanni Moreno Other [facility] Other 02-10-2022 10:30-1759VkK0% (BldA) [Mass fraction]99 % Giovanni Moreno Other [facility] Other 02-10-2022 10:30-0500Systolic blood leoblqfj084 mm[Hg] Giovanni Moreno Other [facility] Other 01-19-2022 14:15-0500Body zgsewd332.4 cmGiovanni Moreno Other [facility] Other 01-19-2022 14:15-0500Body mass index (BMI) [Ratio] 48.23 kg/h6YtvomGiovanni Moreno Other [facility] Other 01-19-2022 14:15-0500Body dajaob782.04 kgGiovanni Moreno Other [facility] Other 01-19-2022 14:15-0500Diastolic blood vdbiknob23 mm[Hg] Giovanni Moreno Other [facility] Other 01-19-2022 14:15-0500Respiratory rate20 /minGiovanni Moreno Other [facility] Other 01-19-2022 14:15-1603DyE1% (BldA) [Mass fraction]99 % Giovanni Moreno Other [facility] Other 01-19-2022 14:15-0500Systolic blood rkbegbth037 mm[Hg] Giovanni Moreno Other [facility] Other 12-21-2021 11:00-0500Body .4 cmGiovanni Moreno Other [facility] Other 12-21-2021 11:00-0500Body mass index (BMI) [Ratio] 47.84 kg/r4CopcrGiovanni Moreno Other [facility] Other 12-21-2021 11:00-0500Body yjyydh521.13 kgGiovanni Moreno Other [facility] Other 12-21-2021 11:00-0500Diastolic blood lgshquwm57 mm[Hg] Giovanni Moreno Other [facility] Other 12-21-2021 11:00-0500Respiratory rate20 /minGiovanni Moreno Other [facility] Other 12-21-2021 11:00-8772JeV9% (BldA) [Mass fraction]99 % Giovanni Moreno Other [facility] Other 12-21-2021 11:00-0500Systolic blood mm[Hg] Giovanni Moreno Other [facility] Other 11-22-2021 10:30-0500Body abujje842.4 cmDomenico Whitmore Other [facility] Other 11-22-2021 10:30-0500Body mass index (BMI) [Ratio] 46.87 kg/c6MoqulowDomenico Whitmore Other [facility] Other 11-22-2021 10:30-0500Body fejwhstsxwl22.3 [degF] Domenico Whitmore Other [facility] Other 11-22-2021 10:30-0500Body .86 kgJegay Whitmore Other [facility] Other 11-22-2021 10:30-0500Diastolic blood uflnpzto78 mm[Hg] Domenico Whitmore Other [facility] Other 11-22-2021 10:30-8467MoR1% (BldA) [Mass fraction]99 % oDmenico Whitmore Other [facility] Other 11-22-2021 10:30-0500Systolic blood nacxpqip62 mm[Hg] Domenico Bolivarflora Other [facility] Other Encounters Encounter DateEncounter TypeCare ProviderFacilityStart: 20-20-7745zicpjeihraGsb ReeseFacility:TriHealthtart: 02-20-2025 End: 73-18-2373lwjawllfsfPybzjp Luis Tyson DO Work Phone: [phone]-Cvfdfc Center AmbulatoryStart: 02-20-2025 End: 68-83-3202Ojpbzcxsonia [facility] Ambulatory Work Phone: Start: 02-18-2025 End: 90-82-7623Hfwcfqlq Result EncounterRoxane Bills MD Work Phone: noms External Department UnsolicitedStart: 02-18-2025 End: 51-61-7761Rsfzwjxy Result EncounterRoxane Bills MD Work Phone: noms External Department UnsolicitedStart: 02-13-2025 End: 02-89-3291Xmjkxwoe Result EncounterRoxane Bills MD Work Phone: noms External Department UnsolicitedStart: 02-13-2025 End: 48-83-8586Lqmrfnve Result EncounterRoxane Bills MD Work Phone: noms External Department UnsolicitedStart: 02-13-2025 End: 51-50-8020zpagulhtyuZnhigl A Tyson DO Work Phone: -Lab Main CampusStart: 02-13-2025 End: 56-42-8423Eoglev A Tyson DO-Lab Main [place] Work Phone: Start: 02-10-2025 End: 91-99-6029iszvmanxdsJcraqj A Tyson DO Work Phone: -[facility] [place]kyStart: 02-10-2025 End: 22-88-8269Trhingt encounter procedureGlanh Tyson [facility]: 02-10-2025 End: 58-83-7079Zmlnyc A [facility] Frank Work Phone: Start: 02-08-2025 End: 79-07-9224eabnbcpmhfYnrfkm A [facility] Work Phone: [phone]-Jwtzdr Center AmbulatoryStart: 02-08-2025 End: 41-69-9201Ezs Reese M MD-[facility] Ambulatory Work Phone: Start: 02-06-2025 End: 99-44-8030Apprwqgq Result EncounterRoxane Bills MD Work Phone: noms External Department UnsolicitedStart: 02-06-2025 End: 35-84-6702Juxsuyat Result EncounterRoxane Bills MD Work Phone: noms External Department UnsolicitedStart: 01-18-2025 End: 91-77-5049bnlaqcfsrnMtvpdp A [facility] Work Phone: [facility] Work Phone: Start: 01-18-2025 End: 00-98-3009Xzmmhag encounter procedureRoxane Rojo MD-[facility] Ambulatory Work Phone: Start: 01-18-2025 End: 51-59-5178Yny Reese M MD-[facility] Ambulatory Work Phone: Start: 01-17-2025 End: 52-16-7143Isajhohc Result EncounterRoxane Bills MD Work Phone: noms External Department UnsolicitedStart: 01-17-2025 End: 23-34-4992Oggrzfkp Result EncounterRoxane Bills MD Work Phone: noms External Department UnsolicitedStart: 12-27-2024 End: 03-25-9445Lgmjfdplnk and management of inpatientGloria A [facility] Work Phone: [facility] Work Phone: Start: 71-80-1988Ams-patient / Non-visitMichael S Blank MD-[facility] Infect Dis Work Phone: Start: 10-60-1416Llurp Prasad MD-[facility] [place] [facility] Work Phone: Start: 12-26-2024 End: 40-83-3591Obxpiyyw Result EncounterRoxane Bills MD Work Phone: noms External Department UnsolicitedStart: 12-26-2024 End: 82-46-5623Umngtlqr Result EncounterRoxane Bills MD Work Phone: noms External Department UnsolicitedStart: 12-26-2024 End: 16-20-5779Hpoyfs Tyson DO Work Phone: [phone]-Qgyofqotz Room Work Phone: Start: 12-26-2024 End: 19-76-2917Dfdzaweiz department patient visitGloria Luis [facility] DO Work Phone: [facility] Work Phone: Start: 43-66-8613Rjk Reese M MD-[facility] Acute Work Phone: Start: 12-21-2024 End: 09-29-3184Amqbmeoh Result EncounterRoxane Bills MD Work Phone: noms External Department UnsolicitedStart: 12-21-2024 End: 44-96-4801Omggdmqa Result EncounterRoxane Bills MD Work Phone: noms External Department UnsolicitedStart: 12-21-2024 End: 42-37-8723bciywzldciWbpbam A [facility] Work Phone: [facility] Work Phone: Start: 12-21-2024 End: 18-82-3919Rmlnezt encounter Nacho Rojo MD-[facility] Ambulatory Work Phone: Start: 12-21-2024 End: 12-41-1360Qsw Reese M [facility] Ambulatory Work Phone: Start: 12-19-2024 End: 77-38-4543Tytlzk Maricruz Tsai DPM Work Phone: noms [facility] Soto PodiatryStart: 12-19-2024 End: 88-06-6745Udjnfd Maricruz Tsai DPM Work Phone: noms Frank Charlse PodiatryStart: 12-19-2024 End: 90-76-1559Zzbuynux Result EncounterRoxane Bills MD Work Phone: noms External Department UnsolicitedStart: 12-19-2024 End: 87-55-8105Toypzyf encounter procedureMack Tsai DPM Work Phone: noms [facility] Charles PodiatryComment on above: Diabetes mellitus due to underlying condition with diabetic polyneuropathy, with long-term current use of insulin (HCC) (Primary Dx); Pain due to onychomycosis of toenails of both feet; Xerosis cutisStart: 12-19-2024 End: 47-46-8372vlgmgcngysJVTQAPLU A BROWNNot AvailableStart: 12-13-2024 End: 47-78-5045Onvignjt Result EncounterRoxane Bills MD Work Phone: noms External Department UnsolicitedStart: 12-13-2024 End: 46-80-7992Llfvwvnc Result EncounterRoxane Bills MD Work Phone: noms External Department UnsolicitedStart: 12-07-2024 Registered Shannan GILL CredibleStart: 12-07-2024 Truong GILL CredibleStart: 60-75-5451gppjuznmxpCcsizjuynke AbdelazizFacility:TriHealthtart: 12-06-2024 End: 60-17-1457Idsuslkd Result EncounterRoxane Bills MD Work Phone: noms External Department UnsolicitedStart: 12-06-2024 End: 28-09-5366Jlbgbsmn Result EncounterRoxane Bills MD Work Phone: noms External Department UnsolicitedStart: 12-06-2024 End: 57-86-9930rnfceepzdjKjlcig A Tyson DO Work Phone: [facility] Work Phone: Start: 12-06-2024 End: 90-59-6971Zmqpcnl encounter procedureSugey Cummins NP-C-[facility] Ambulatory Work Phone: Start: 12-06-2024 End: 86-15-4496Rdiqpbm E Morris NP-C-[facility] Ambulatory Work Phone: Start: 77-57-4874Uap Sanju Rojo MD-[facility] Acute Work Phone: Start: 12-05-2024 End: 18-22-7511Qtmtrmmq Result EncounterRoxane Bills MD Work Phone: noms External Department UnsolicitedStart: 12-05-2024 End: 93-28-3143Lvntgxrd Result EncounterRoxane Bills MD Work Phone: noms External Department UnsolicitedStart: 11-28-2024 End: 43-69-6268Kocvybav Result EncounterRoxane Bills MD Work Phone: noms External Department UnsolicitedStart: 11-28-2024 End: 73-10-0250Ryisxzgm Result EncounterRoxane Bills MD Work Phone: noms External Department UnsolicitedStart: 11-28-2024 End: 66-71-7008Ookoflwhm encounterJeannie Aguilar MD Work Phone: noms [place] EndocrinologyComment on above:Med Refill Start: 11-22-2024 End: 24-14-5498hmvaaportxIoclao A Tyson DO Work Phone: [facility] Work Phone: Start: 11-22-2024 End: 50-44-1364Kwfmgjg encounter procedureCakathrine Cummins NP-Ion-[facility] Ambulatory Work Phone: Start: 11-22-2024 End: 54-42-0008Uwykkqbsonia HOLLAND-[facility] Ambulatory Work Phone: Start: 18-67-4366Awt Reese M MD-[facility] Acute Work Phone: Start: 11-21-2024 End: 28-74-7982Ppgcndxc Result EncounterRoxane Bills MD Work Phone: noms External Department UnsolicitedStart: 11-21-2024 End: 80-82-9959Umpdhwkw Result EncounterRoxane Bills MD Work Phone: noms External Department UnsolicitedStart: 11-14-2024 End: 97-12-8849Osgnezorville Aguilar MD Work Phone: noms Frank EndocrinologyStart: 11-14-2024 End: 13-24-3226Ovputjrosario Aguilar MD Work Phone: noms Frank EndocrinologyStart: 11-14-2024 End: 41-42-9981Beuain outpatient visit 25 minutesJeannie Aguilar MD Work Phone: noms Frank EndocrinologyComment on above:Vitamin D deficiency (Primary Dx); Type 2 diabetes mellitus with hyperglycemia, with long-term current use of insulin (HCC); Primary hypertension ; Hyperlipemia, mixed ; Insulin long-term use (HCC); Encounter for dietary consultation; Stage 3b chronic kidney disease ([facility]-HCC)Start: 11-14-2024 End: 12-23-6517tfefmfhjjyQJGYU F SABBAGHNot AvailableStart: 11-10-2024 End: 84-66-2285Jfrkpnzx Result EncounterRoxane Bills MD Work Phone: noms External Department UnsolicitedStart: 11-10-2024 End: 94-72-2311Rlkitrdn Result EncounterRoxane Bills MD Work Phone: NOPA External Department UnsolicitedStart: 11-01-2024 End: 62-60-5005pybjgmkassHxxywn A [facility] DO Work Phone: [facility] Work Phone: Start: 11-01-2024 End: 02-62-0725Cekziqj encounter procedureBertha Martinez -[facility] Ambulatory Work Phone: Start: 11-01-2024 End: 76-38-2443Retgv Busch RN-[facility] Ambulatory Work Phone: Start: 10-27-2024 End: 15-54-9491bdcpxyjxicSwccbg A [facility] Work Phone: [facility] Work Phone: Start: 10-27-2024 End: 99-72-1900Ajmzbbn encounter procedureRoxane Rojo [facility] Work Phone: Start: 10-27-2024 End: 94-59-5971Fwe Reese M MDZ[facility] Work Phone: Start: 60-33-9258Rjtbfgeysb RecurringTruong GILL CredibleStart: 21-18-7453Ytfoppygmutlázaro GILL Credible Start: 10-17-2024 End: 93-96-0081rgvawiofcsGmmzvbs Vytautas Giedraitis MDFacility:PM Sanam Start: 10-06-2024 End: 38-17-6105kdtznfpzjlCrqntn A [facility] DO Work Phone: [facility] Work Phone: Start: 10-06-2024 End: 13-29-4196Dtnqimd encounter procedureRoxane Rojo MDZ[facility] Work Phone: Start: 10-06-2024 End: 20-97-9353Hvj Reese M MDZ[facility] Work Phone: Start: 10-05-2024 End: 48-41-6685Lpcuyiog Result EncounterRoxane Bills MD Work Phone: noms External Department UnsolicitedStart: 10-05-2024 End: 21-63-0872Fljaeger Result EncounterRoxane Bills MD Work Phone: noms External Department UnsolicitedStart: 09-30-2024 End: 46-08-4177Mdndmt flowsKeon Smith Brown DPM Work Phone: noms [place] PODStart: 09-30-2024 End: 60-63-8215Swqpix flowsriaNickaleb A Brown DPM Work Phone: noms [place] PODStart: 09-30-2024 End: 03-92-7189Teaulyj encounter procedureMack Tsai DPM Work Phone: noms [place] PODComment on above:Diabetes mellitus due to underlying condition with diabetic polyneuropathy, with long-term current use of insulin (HCC) (Primary Dx); Pain due to onychomycosis of toenails of both feet; Xerosis cutisStart: 09-30-2024 End: 14-44-2358odtlpgstvnOQXWKORG A BROWNNot AvailableStart: 09-26-2024 End: 71-17-7451sulkpqtyxiAhhnixn Vytautas Giedraitis Facility:[facility] [place] Start: 09-19-2024 End: 96-29-1686Wdwyovrn Result EncounterRoxane Bills MD Work Phone: noms External Department UnsolicitedStart: 09-19-2024 End: 43-03-8212Ijqxfdxy Result EncounterRoxane Bills MD Work Phone: noms External Department UnsolicitedStart: 09-19-2024 End: 98-41-5318Dqarpuhop to same day surgery Kayli Rojo MD-CT Scan [facility] [place] Work Phone: Start: 09-19-2024 End: 85-52-5773Ank Reese M MD-CT Scan [facility] [place] Work Phone: Start: 09-19-2024 End: 91-89-9447cpnafmxezhGjz ReeseFacility:[facility] Start: 08-31-2024 End: 79-01-9946Ntjldcz encounter procedureRoxane Rojo MD-[facility] Ambulatory Work Phone: Start: 08-31-2024 End: 33-86-9565Jsl Reese M MD-[facility] Ambulatory Work Phone: Start: 08-25-2024 End: 41-16-6360Uojhcz flowsBradleyPlerts Alexys [employer] DO Work Phone: noms PULMStart: 08-25-2024 End: 54-43-0263Teamzg flowsheetLejavy Reardon [employer] DO Work Phone: noms PULMStart: 08-25-2024 End: 66-70-8306Ldvlyn outpatient visit 15 minutesLejavy Reardon [employer] DO Work Phone: noms PULMComment on above:Chronic obstructive pulmonary disease, unspecified COPD type (CMS/HCC) (Primary Dx); Obstructive sleep apnea syndromeStart: 08-25-2024 End: 79-67-3790zdpjetiymgYIDIIS K STRACKNot AvailableStart: 08-23-2024 End: 69-05-3848Mocrzthg Result EncounterRoxane Bills MD Work Phone: noms External Department UnsolicitedStart: 08-23-2024 End: 37-56-2162Anfwbzzz Result EncounterRoxane Bills MD Work Phone: noms External Department UnsolicitedStart: 08-22-2024 End: 26-24-2897Ydemxrorville Aguilar MD Work Phone: noms ENDOCRINOLOGYStart: 08-22-2024 End: 22-08-5551Nrvihqrosario Aguilar MD Work Phone: noms ENDOCRINOLOGYStart: 08-22-2024 End: 02-09-1650Iyzwnf outpatient visit 25 minutesJeannie Aguilar MD Work [...] diabetes mellitus with hyperglycemia (CMS/HCC)Start: 08-22-2024 End: 44-18-2443vrkeadsuyuHGUCV F SABBAGHNot AvailableStart: 08-15-2024 End: 32-40-1255mzmfmojdfqKbhxznoFadumo Ramos MDFacility:PM Sanam Start: 08-11-2024 End: 39-42-7536Xoziogp encounter procedureGloria Tyson DO Work Phone: [facility] Hospital[facility]art: 08-11-2024 End: 59-59-4852qzywswjcyoSqnnzk Luis Tyson DO Work Phone: [facility] Work Phone: Start: 08-08-2024 End: 40-03-6478oqvdixsjbnXyyjda Luis Tyson DO Work Phone: [facility] Work Phone: Start: 08-08-2024 End: 00-37-2005Cyvnnox encounter procedureGloria Tyson DO Work Phone: [facility] [place] Work Phone: Start: 07-30-2024 End: 18-37-0079MagmfpOzjkqp K Strack DO Work Phone: noms PULMComment on above:Chronic obstructive pulmonary disease, unspecified COPD type (CMS/HCC)Start: 59-47-3708Rhydziefdr RecurringGloria Tyson DO Work Phone: [facility]- CredibleStart: 06-28-2024 End: 37-92-3023mzkctmnswnTJXFEEUW A BROWNNot AvailableStart: 05-25-2024 End: 66-32-2686Aqeweo Feli Aguilar MD Work Phone: noms ENDOCRINOLOGYStart: 05-25-2024 End: 67-95-1923Dtdedk Feli Aguilar MD Work Phone: noms ENDOCRINOLOGYStart: 05-25-2024 End: 94-51-6999Ctwkvh outpatient visit 25 minutesJeannie Aguilar MD Work Phone: noms ENDOCRINOLOGYComment on above:Type 2 diabetes mellitus with hyperglycemia, with long-term current use of insulin (CMS/[facility]) (Primary Dx); Vitamin D deficiency; Primary hypertension (CMS/HCC); Hyperlipemia, mixed (CMS/HCC); Insulin long-term use (CMS/[facility]); Encounter for dietary consultation; Stage 3b chronic kidney disease (HCC) (CMS/[facility]); Class 3 severe obesity due to excess calories with serious comorbidity and body mass index (BMI) of45.0 to 49.9 in adult (CMS/HCC); Type 2 diabetes mellitus with hyperglycemia ([facility])Start: 05-25-2024 End: 58-84-8782kwfbglynnwKYYGW F SABBAGHNot AvailableStart: 04-18-2024 End: 10-22-4345sjxbccwezmZprvarxbnax M Germain DO Work Phone: [facility] Work Phone: Start: 04-18-2024 End: 14-87-7072Domffuq encounter procedureChristopher Groves DO Work Phone: [facility] Start: 04-15-2024 End: 20-30-4848Inqmhsorville Tsai DPM Work Phone: noms [place] PODStart: 04-15-2024 End: 93-78-9873Ejawcb flowsheetMack sTai DPM Work Phone: noms [place] PODStart: 04-15-2024 End: 11-62-1757Ozkzjx outpatient visit 15 minutesMack Tsai DPM Work Phone: noms [place] PODComment on above:Xerosis cutis (Primary Dx); Diabetes mellitus due to underlying condition with diabetic polyneuropathy, with long-term current use of insulin (CMS/HCC); Pain due to onychomycosis of toenails of both feetStart: 04-15-2024 End: 76-21-4572txifrymdabJIHAVAZT A BROWNNot AvailableStart: 03-21-2024 Registered RecurringChristopher Lyleett DO Work Phone: [facility] CredibleStart: 03-20-2024 End: 13-74-7248SrrwsmWsctaGiana Aguilar MD Work Phone: noms ENDOCRINOLOGYComment on above:Type 2 diabetes mellitus with hyperglycemia (CMS/HCC)Start: 03-07-2024 End: 64-85-5792Vilgwlk encounter procedureChristopher Germain DO Work Phone: [facility] [place] Work Phone: Start: 65-48-3108Gyeaiwynjl RecurringGloria Tyson DO Work Phone: [facility] Work Phone: Start: 03-02-2024 End: 15-49-5293voonaoofqkJshmsf Luis Tyson DO Work Phone: [facility] Work Phone: Start: 03-02-2024 End: 66-98-9506Nagschg encounter procedureGloria Tyson DO Work Phone: [facility] Work Phone: Start: 02-24-2024 End: 04-05-5428Ctpipcdb Result EncounterRoxane Bills MD Work Phone: noms External Department UnsolicitedStart: 02-24-2024 End: 19-25-1905Fximsedz Result EncounterRoxane Bills MD Work Phone: noms External Department UnsolicitedStart: 02-24-2024 Registered RecurringGloria Tyson DO Work Phone: [facility] Work Phone: Start: 03-32-7160Ljhnzoxklg RecurringGloria Tyson DO Work Phone: [facility] CredibleStart: 02-09-2024 End: 87-23-8572tmstidorlfMM Peri A Tyson Work Phone: [facility] Work Phone: Start: 02-09-2024 End: 41-72-7889Cknfvjj encounter procedureDO Peri Tyson Work Phone: [facility] Work Phone: Start: 02-02-2024 End: 15-60-6003Gvnoht flowsheetMack Tsai DPM Work Phone: noMS [place] PODStart: 02-02-2024 End: 71-33-4546Tdgwlz flowsheetMack Tsai DPM Work Phone: noMS [place] PODStart: 90-52-4755Qrpxocfoed RecurringDO Peri Tyson Work Phone: [facility] Work Phone: Start: 02-02-2024 End: 26-29-3801Tsjsyhb encounter procedureMack Tsai DPM Work Phone: noMS [place] PODComment on above:Diabetes mellitus due to underlying condition with diabetic polyneuropathy, with long-term current use of insulin (CMS/HCC) (Primary Dx); Pain due to onychomycosis of toenails of both feetStart: 02-02-2024 End: 68-73-0408dtkjsmwxogWBMPNHTE A BROWNNot AvailableStart: 01-20-2024 End: 39-79-2665Ysormp Feli Aguilar MD Work Phone: [facility] ENDOCRINOLOGYStart: 01-20-2024 End: 98-07-2523Sehgya Feli Aguilar MD Work Phone: noMS ENDOCRINOLOGYStart: 01-20-2024 End: 04-84-3964Pbuppk outpatient visit 25 minutesJeannie Aguilar MD Work [...] to 49.9 in adult (CMS/HCC)Start: 01-20-2024 End: 16-98-9076udvnptwigqLLQYYAlessia Chavarria AvailableStart: 01-14-2024 End: 41-70-4515Cdmlgi [employer]Pelon [employer] Work Phone: [facility] PULMStart: 01-14-2024 End: 97-43-8454Qgdizh Enable InjectionsBradleyZaBeCor [employer]aceuticals Work Phone: [facility] PULMStart: 01-14-2024 End: 62-85-4950Apiffj outpatient visit 15 minutesSvetlana Reardon G-[employer] Work Phone: noMS PULMComment on above:Chronic obstructive pulmonary disease, unspecified COPD type (CMS/HCC) (Primary Dx); Obstructive sleep apnea syndromeStart: 01-14-2024 End: 44-59-9163ubszycrdcuIIAWXQ K STRACKNot AvailableStart: 01-12-2024 End: 99-06-3509DdrnuwZlbjemle A Brown DPM Work Phone: noms [place] PODComment on above:Diabetes mellitus due to underlying condition with diabetic polyneuropathy, with long-term current use of insulin ([facility])Start: 12-30-2023 End: 19-90-5690gmckkahmguFxzdkx A Tyson DO Work Phone: [facility] Work Phone: Start: 12-30-2023 End: 34-58-6065Medeilxlqd RecurringGloria [facility] DO Work Phone: [facility]-[address] [facility] Start: 78-28-4048Kcqrmhbtrs RecurringDO Peri Tyson Work Phone: [phone] [place] [address]-[address] [facility] Start: 13-45-5485Jszmimugef RecurringDO Peri Tyson Work Phone: [facility]- CredibleStart: 09-02-2023 End: 24-86-9913fgwcfpraydHR Peri A Tyson Work Phone: [phone]-[facility] Work Phone: Start: 09-02-2023 End: 15-17-9074Tdzfbiy encounter procedureDO Peri Tyson Work Phone: [facility] Work Phone: Start: 00-88-8199Lgslvuymhu RecurringDO Peri Tyson Work Phone: [facility] Work Phone: Start: 08-24-2023 End: 13-29-0885pfairzoyejDS Peri A [facility] Work Phone: [phone] [place] [address] Work Phone: Start: 08-24-2023 End: 13-15-7118Wnikcwc encounter procedureDO Peri Tyson Work Phone: [facility]-Lab [facility] [place] Work Phone: Start: 08-19-2023 End: 94-03-3138zifkpqifquYO Peri A Tyson Work Phone: [facility] Work Phone: Start: 08-19-2023 End: 00-58-9232Pubxews encounter procedureDO Peri Tyson Work Phone: [facility] Work Phone: Start: 08-12-2023 End: 71-22-7328Rlrtygh encounter procedureDO Peri Tyson Work Phone: [facility] Hospitaltart: 08-10-2023 End: 52-25-9921ndoijazuthNI Peri A Tyson Work Phone: [facility] Work Phone: Start: 08-10-2023 End: 62-42-2250Cbjorhu encounter procedureDO Peri Tyson Work Phone: [facility] Work Phone: Start: 07-31-2023 End: 89-51-4191rcurqlukhcDR Peri A Tyson Work Phone: [facility] Work Phone: Start: 07-31-2023 End: 92-28-4703Xtemplx encounter procedureDO Peri Tyson Work Phone: [facility] Hospitaltart: 07-29-2023 End: 55-35-3467hkidwmkoffCF Peri A Tyson Work Phone: [facility] Work Phone: Start: 07-29-2023 End: 02-01-1513Fnjdkrr encounter procedureDO Periluis Tyson Work Phone: [facility] Vascular Surgery Work Phone: Start: 17-95-8193Aib-patient / Non-visitDO Peri Tyson Work Phone: [facility] [employer] Work Phone: Start: 07-01-2023 End: 98-17-1331mvaukqixejAI Peri Smith Tyson Work Phone: [facility] Work Phone: Start: 07-01-2023 End: 26-85-5072Ygdgmrf encounter procedureDO Peri Tyson Work Phone: [facility] Vascular Surgery Work Phone: Start: 40-39-7747Hmvvfhqzyw RecurringDO Peri Marbella Work Phone: [facility] CredibleStart: 05-27-2023 End: 85-06-7097nbcxfgugxhDP Brenden Groves Work Phone: [facility] Work Phone: Start: 05-27-2023 End: 29-46-6488Phulnji encounter procedureDO Brenden Groves Work Phone: [facility] Vascular Surgery Work Phone: Start: 05-22-2023 End: 90-42-2024ibizkbypqpGlndqv Marbella Other [facility] [employer] Other Start: 48-19-4587Krcmlurme encounterGloria MarbellaSalem Hospital SanduskyStart: 18-25-9776SckxjbYvzwtvjv A Brown DPM Work Phone: noms [place] PODComment on above:Diabetes mellitus due to underlying condition with diabetic polyneuropathy, with long-term current use of insulin ([facility])Start: 05-12-2023 End: 17-82-7364vwgswhfuftNU Peri Smith Marbella Work Phone: [facility] Work Phone: Start: 05-12-2023 End: 40-47-5046Toabzfjbnk RecurringDO Whitt Marbella Work Phone: [facility]-Wound Care [facility] Work Phone: Start: 05-08-2023 End: 97-82-9924fobtiacpxaXI Peri Smith Marbella Work Phone: [facility] Work Phone: Start: 05-08-2023 End: 88-39-2013Izskjzz encounter procedureDO Peri Marbella Work Phone: [facility]-Ultrasound [facility] [place] Work Phone: Start: 29-56-8215Zogkwqihue Recurring Peri Marbella Work Phone: [facility]-Wound Care [facility] Work Phone: Start: 04-20-2023 End: 56-64-2335pevovuquwgNcmyeg Tyson Other [employer] Other Start: 72-17-8676Zhunswptb encounterGloria [facility] Centerart: 04-15-2023 End: 16-37-0883winkfqkgkgDbugxs [facility] Other [employer] Other Start: 21-99-4359Hfzcopfss encounterGloria [facility] HospitalyStart: 03-24-2023 End: 96-00-3708stiixnqhptMztnby Johns Other [employer] Other Start: 44-00-4711Ncysyouac encounterGloria [facility] SandgreenhurstyStart: 03-19-2023 End: 01-29-4712fqffvfinheGwxcgh Johns Other [employer] Other Start: 47-34-9760Hdjhvzkiz encounterGloria [facility] SandgreenhurstyStart: 23-53-9014Ajhzsrjfyc RecurringDO Rayshawnpankai Germain Work Phone: [facility]- CredibleStart: 03-04-2023 End: 43-24-4966wrdenzmyqxAI Peri A Marbella Work Phone: [facility] Work Phone: Start: 03-04-2023 End: 28-45-1931Ciabtiikqe RecurringDO Peri Tyson Work Phone: [facility] [facility] Work Phone: Start: 02-23-2023 End: 81-82-9229gqruriogkvIldyda Johns Other noNovan videof.me Other Start: 93-35-3361Ixbcaieqn encounterGloria [facility] HospitalyStart: 02-19-2023 End: 37-38-6605Nqugcme encounter procedureDO Peri Marbella Work Phone: [facility]-Ultrasound Main [place] Work Phone: Start: 02-12-2023 End: 99-81-1030vfysuvamxqGtsadt Johns Other noNovan videof.me Other Start: 05-52-4235Ajeitsulh encounterGloria [facility] [place]kyStart: 02-12-2023 End: 20-95-8112Qwkuqyvll to same day surgery centerDO Peri Tyson Work Phone: [facility] C[facility]-CT Scan Main [place] Work Phone: Start: 29-57-4215Upgvlxduuo RecurringDO Peri Tyson Work Phone: [facility] C[facility]-BH CredibleStart: 02-06-2023 End: 62-54-0857wumttioitdOmnnmk [facility] Other [employer] Other Start: 83-11-3788Mispgmurg for general adult medical examination without abnormal findingsGloria [facility] Start: 75-91-8198Pdrmeklq preventive med est patient 40-64yrsGloria [facility] Centerart: 93-56-8323Hburzisfi encounterGloria [facility] Medical Centerart: 02-04-2023 End: 60-05-2549hcczpfmkwfNR Peri Luis Tyson Work Phone: [facility] Work Phone: Start: 02-04-2023 End: 70-83-6438Mlljmeq encounter procedureDO Peri Tyson Work Phone: [facility]-MRI [address] Work Phone: Start: 02-03-2023 End: 76-55-3130cgqdtafmwtDbzbvv Tyson Other [employer] Other Start: 01-41-2846Pagylihvm encounterGloria [facility] Medical Centerart: 01-29-2023 End: 50-19-4869aclkefhvfyBV Peri A Tyson Work Phone: [facility] Work Phone: Start: 01-29-2023 End: 69-71-0356Sojpdgpppr RecurringDO Peri Tyson Work Phone: [facility] Work Phone: Start: 01-21-2023 End: 02-60-0672tulcvaoeamLadbag Johns Other Floq Other Start: 31-40-3743Xlzyuqdfk encounterGloria [facility] Family [facility] HospitalyStart: 01-19-2023 End: 71-34-9250wqniresfqpZoyqwu Tyson Other Flo[employer] Other Start: 09-58-6793Vokzbnvwe encounterGloria JohnsB[facility] Family Medicine [facility] CenteryStart: 01-15-2023 End: 55-19-8046yskwakeomgCyokcyr Blades Other Floq Other start: 43-69-9801Fbpiuvlhh encounterDeborah BladesFPG Referral CoordinatorStart: 01-12-2023 End: 56-70-7617uvydphcqqiAvrlwjz Blades Other Floq Other start: 50-57-2979Jspejj outpatient new 45 minutes Patsy BladesFPG [facility] NeurosurgeryStart: 87-54-2706Uxbevpwci encounter Patsy BladesFPG [facility] NeurosurgeryStart: 12-24-2022 End: 72-73-7227ipcgoifbgzKgeahs Tyson Other Floq Other Start: 12-60-5119Lyrgvyrzu encounterGloria JohnsB[facility] Family [facility] HospitalyStart: 12-18-2022 End: 03-99-2889Xyspeduvo to same day surgery Joanne Tyson Work Phone: [facility] CampusStart: 12-18-2022 End: 55-04-8131lvvxzayhbcOZ Peri A [facility] Work Phone: [facility] Work Phone: Start: 12-16-2022 End: 75-18-0022pacrpybhwnYxzclo Tyson Other [facility] videof.me Other Start: 68-28-3840Yvdhdiyya encounterGloria [facility] Medical Centerart: 12-10-2022 End: 41-26-7043xsvhqnpmdxRybmdq [facility] Other BorderJ[facility]hel[facility] videof.me Other Start: 21-08-3551Jcnndreio encounterGloria [facility] Medical Centerart: 12-05-2022 End: 17-03-1317Kftyazcf ReferredDO Peri [facility] Work Phone: [phone] [place] [address] Uod-Azf-Ulbdbqhs Testing Work Phone: Start: 12-05-2022 End: 18-18-1172Svyhotz encounter procedureDO Peri [facility] Work Phone: [phone]-[facility] Yti-Xuo-Dbahzhco Testing Work Phone: Start: 12-04-2022 End: 58-46-8129yczmbtsiyqRU Peri A [facility] Work Phone: [facility] Work Phone: Start: 12-04-2022 End: 45-57-2796Wexktyn encounter procedureDO Peri [facility] Work Phone: [phone]-[facility]-MRI Main [place] Work Phone: Start: 11-20-2022 End: 67-12-1033negiglcdbhRB Peri A [facility] Work Phone: [phone] [place] [address] Ctr Work Phone: Start: 11-20-2022 End: 10-86-7236Juheaqqrug RecurringDO Periluis Tyson Work Phone: [facility] Hospitaltart: 11-17-2022 End: 74-62-4367ndwvblkwqhLjubeb Tyson Other Floq Other Start: 58-02-9062Vapfgpshd encounterGloria JohnsB[facility] Family [facility] [place]kyStart: 10-27-2022 End: 53-92-3501vstjpczifaSmpssz Tyson Other [facility] videof.me Other Start: 72-66-8108Zxulxfbrg encounterGloria JohnsB[facility] Family [facility] SandgreenhurstyStart: 10-13-2022 End: 25-43-3260izccllszarSwdfsm Tyson Other [employer] Other Start: 93-26-7361Wjmyzrkqb encounterGloria [facility] Family [facility] SandgreenhurstyStart: 10-10-2022 End: 97-60-1027hxihgvubflQnrapt Tyson Other Floq Other Start: 11-56-0315Wcxehiflp encounterGloria JohnsB[facility] Family Medicine [place]hurstyStart: 2022 End: 77-15-6111yvssespqhlAzljfi Tyson Other Floq Other Start: 82-16-8018Xuxunegkx encounterGloria JohnsB[facility] Family [facility] Sand[place]hurstyStart: 09-30-2022 End: 35-00-3745gazydslbiuEpptzl Tyson Other Floq Other Start: 07-35-0299Ezlvyknco encounterGloria JohnsB[facility] Family Medicine [place]hurstyStart: 09-24-2022 End: 31-06-0505zuampqjxydXpyfkf Tyson Other Floq Other Start: 93-20-7710Ysrozferu encounterGloria [facility] HospitalyStart: 78-10-2758Ksxmcf outpatient visit 25 minutes Peri MarbellaGardner SanitariumyStart: 09-16-2022 End: 98-60-6708lkbmhgsgudIX Peri A Marbella Work Phone: Floq Other Start: 09-16-2022 End: 04-06-8946Fxioesr encounter procedureDO Peri Marbella Work Phone: [facility] CtrStart: 09-09-2022 End: 63-29-5074ogwuuhecvyGwlehk Tyson Other Floq Other Start: 12-95-3612Qsmtrdzvl encounterGloria [facility] HospitalyStart: 51-30-1085Ygoztwgaxk RecurringDO Peri Marbella Work Phone: [facility] Ctr-Physical Therapy [address]Start: 08-12-2022 End: 56-85-2533lcswngllkzTmzpyu Marbella Other Floq Other Start: 65-50-1817Vtquwzpic encounterGloria [facility] HospitalyStart: 08-07-2022 End: 56-12-9160dubzrpsosrMR Peri A Marbella Work Phone: [facility] Work Phone: Start: 08-07-2022 End: 36-31-3496Nnirvwe encounter procedureDO Peri Tyson Work Phone: [facility]-Lab Main [place] Work Phone: Start: 08-01-2022 End: 04-72-5755plejpmlsyeVsmpre Tyson Other Floq Other Start: 22-16-0977Iaylvdtmv encounterGloria [facility] Family [facility] SandgreenhurstyStart: 67-16-6715Zubmibdrud RecurringDO Peri Tyson Work Phone: [facility] Work Phone: Start: 07-18-2022 End: 63-26-6841egtimynetuBwfpuj Tyson Other Floq Other Start: 17-84-4624Zdeafddup encounterGloria JohnsB[facility] Family [facility] Sand[place]hurstyStart: 07-17-2022 End: 91-01-6977znkxhgphphPeotvr Tyson Other Floq Other Start: 94-79-9155Zsipqlmom encounterGloria JohnsB[facility] Family [facility] HospitalyStart: 07-14-2022 End: 41-40-5003jsagzfuwqmFmkskj Tyson Other Floq Other Start: 88-69-5229Trmoxxxys encounterGloria [facility] Family [facility] HospitalyStart: 07-07-2022 End: 49-09-2763lyhijiloqaXwfpab Ruttino Other Floq Other Start: 89-98-7771Ggxaun-up encounterLulú Tejada Vascular SurgeryStart: 07-07-2022 End: 27-85-4830Zguqlpu encounter procedureDO Peri Tyson Work Phone: [facility] VascularStart: 07-03-2022 End: 07-75-2707lptmvdglwbBN SANAM LINARES .Facility:N3Xsrdn: 06-30-2022 End: 59-58-5717hpqzsoxoykRidfey Tyson Other Floq Other Start: 92-15-5337Xnypacrvx encounterGloria [facility] Family [facility] SandgreenhurstyStart: 68-73-5095Pgygzscma encounterGloria [facility] Family [facility] HospitalyStart: 05-23-2022 End: 54-59-4959yjrdkulvzqFS Periluis Tyson Work Phone: [facility] Work Phone: Start: 05-23-2022 End: 07-71-3293Csqyikg encounter procedureDO Peri Tyson Work Phone: [facility] Work Phone: Start: 05-15-2022 End: 74-38-9251jrpmryejpoLqvqoe Johns Other Floq Other Start: 67-50-3849Wwdktuati encounterGloria [facility] HospitalyStart: 05-12-2022 End: 87-74-4886jvluuritmrFngzfo Marbella Other [employer] vide[employer].me Other Start: 08-86-2612Cmdnbxlpl encounterGloria [facility] HospitalyStart: 72-01-0590Pfrpzqciqt RecurringDO Peri Tyson Work Phone: [facility] Work Phone: Start: 05-09-2022 End: 51-61-1245Klsjmnp encounter procedureDO Periluis Tyson Work Phone: [facility]-Lab Main [place] Work Phone: Start: 05-07-2022 End: 34-64-2550afculzhfhyZlouek Marbella Other Floq Other Start: 19-70-6016Tpwelg outpatient visit 25 minutes Peri [facility]ellaB[facility] Family Medicine [place]Start: 05-06-2022 End: 52-48-2112hogszoevvdPE SANAMKONSTANTIN LINARES .Facility:K5Ldetg: 04-23-2022 End: 25-88-8260icfpbcfgdkEZ Kevin T Carnahan Work Phone: [facility] Work Phone: Start: 04-23-2022 End: 00-59-3373Dangshjhbs RecurringDO Giovanni Moreno Work Phone: [facility] Work Phone: Start: 04-22-2022 End: 82-73-3954lonpsiahrkQmdzyn Tyson Other Floq Other Start: 55-46-1537Kqazeqnuo encounterGloria JohnsB[facility] Family Medicine [place]Start: 04-21-2022 End: 79-67-2727zuwucwjptbBsmnrp Tyson Other Floq Other Start: 28-65-0842Oswbnrczh encounterGloria JohnsB[facility] Family [facility] [place]kyStart: 04-17-2022 End: 04-70-2272hsksbormlfIxthce Tyson Other Floq Other Start: 56-57-1804Lcshgnojr encounterGloria JohnsB[facility] Family Medicine [place]Start: 04-02-2022 End: 19-77-5619glpmjrauffFuxwyi Tyson Other Floq Other Start: 07-63-9534Bndzsptbf encounterGloria JohnsB[facility] Family Medicine [place]Start: 03-31-2022 End: 23-66-8798hncreqwtjmFryqyi Tyson Other noEnSol Other Start: 52-04-6520Itqxorfsi encounterGloria [facility]Sal[facility] [place]kyStart: 03-17-2022 End: 34-69-8709wanqbrcntlPbqefm Tyson Other noEnSol Other Start: 91-20-0142Vwfcxoqaf encounterGloria [facility] SandgreenhurstyStart: 03-10-2022 End: 91-44-6703dskfyvtwfbZhuazg Tyson Other Floq Other Start: 08-98-8071Vaunwbvdb encounterGloria [facility] HospitalyStart: 02-19-2022 End: 24-91-4982vpistzwdomBB Giovanni Moreno Work Phone: [facility] Work Phone: Start: 02-19-2022 End: 95-37-5179Cryzpkm encounter procedureDO Giovanni Moreno Work Phone: [facility]-Sleep LabStart: 02-18-2022 End: 12-35-3714akiahwidxiYpnqvw Tyson Other noEnSol Other Start: 37-54-0386Zpukzhupp encounterGloria [facility]Salem [facility] SandgreenhurstyStart: 02-13-2022 End: 09-81-4454tzvdbziskyWekwwm Tyson Other noEnSol Other Start: 16-47-0324Xfwsukgme encounterGloria [facility] HospitalyStart: 02-11-2022 End: 74-14-0262hbysbeqxssUgejhd Tyson Other noEnSol Other Start: 61-32-7842Psuvunitd encounterGloria JohnsB[facility] Family [facility] [place]Start: 02-10-2022 End: 31-75-8526mfblsyzpstKocnjb Tyson Other [facility] Other Start: 31-67-7485Eyhynskfz encounterGloria JohnsB[facility] Family Medicine [place]Start: 95-12-8288Pyxhil outpatient visit 25 minutes Peri [facility] Family [facility] [place]kyStart: 02-03-2022 End: 64-38-1348eysjwahjkvKMApryl Moreno Work Phone: [place] videof.me Other Start: 02-03-2022 End: 18-72-6086Wwnuibiv Ronnie Moreno Work Phone: [facility]Start: 01-22-2022 End: 19-15-7061aftlkomodpCcpicz Tyson Other [facility] Other Start: 12-88-5900Uyszwyihh encounterGloria JohnsB[facility] Family Medicine [place]Start: 12-30-2021 End: 58-28-1160movnswpgxaYvtime Tyson Other [place] videof.me Other Start: 58-89-8237Oehuilqzs encounterGloria JohnsB[facility] Family Medicine [place]Start: 12-23-2021 End: 71-84-2697cxvoeoqdxkCptsvv Tyson Other [place] videof.me Other Start: 53-85-7872Fdrale outpatient visit 25 minutes Peri [facility] [place]kyStart: 12-23-2021 End: 05-18-9445Bptrkpvl Ronnie Moreno Work Phone: [facility]Start: 11-29-2021 End: 49-59-1066kmraloaqwyVqjacpp Manju Other [facility] [employer] Other Start: 22-57-5991Xzedyhait encounterJosafat NunesBANNER DEL [facility] Family Medicine [facility] CenteryStart: 11-05-2021 End: 48-78-0644osksgeojmpBbmwq Carnahan Other [facility] [employer] Other Start: 95-25-1855Utucvkfjn encounterKejosé MorenoBANNER DEL [facility] Family Medicine [facility] CenteryStart: 11-04-2021 End: 31-46-8239dmxmffkyjmPjrgiod Schwerer Other [facility] [employer] Other Start: 29-90-0990Plvgnjoaj encounterKaitlin Schwerer [facility] Family Medicine [facility] CenteryStart: 10-31-2021 End: 13-05-2395ojdqgnsrjwOzcypds Schwerer Other [facility] [employer] Other Start: 51-94-9443Aurzejemp encounterKaitlin Schwerer [facility] Family Medicine [facility] CenteryStart: 47-46-1781Jqjrdsoemn RecurringDO Giovanni Moreno Work Phone: [facility]-Cancer CenterStart: 10-21-2021 End: 11-28-8868Wgpjfih encounter Joaquín Moreno Work Phone: [facility]Lab [facility] Hospitaltart: 10-21-2021 End: 34-80-3929wmqemjxfzrWtzpj Carnahan Other Floq Other Start: 76-06-7464Qzywxc outpatient visit 25 minutes Giovanni MorenoB[facility] Family Medicine [facility] CenteryStart: 10-03-2021 End: 22-94-9128rvyzzvdsrjSlsvc Carnahan Other noEnSol Other Start: 16-98-5897Frxfsceln encounterKejosé Banks [facility] Medicine [place]Start: 09-26-2021 End: 10-99-3556Qfayobjdd to same day surgery centerDO Giovanni Josh Work Phone: [facility]-CT Scan Main [place] Start: 09-19-2021 End: 68-26-4109gjeeanjomvWaemy Carnahan Other noEnSol Other Start: 54-91-1436Wmhohkidd encounterKejosé MorenoNatan Family Medicine [place]Start: 08-23-2021 End: 26-51-8076cmdrtyqlewMojczy Zaky Other Floq Other Start: 05-84-4303Zkcilhduf encounterStelma Loredo Referral CoordinatorStart: 08-22-2021 End: 43-79-6766yxnivgndbaNxumcf Zaky Other Floq Other Start: 87-26-6672Jufowa consultation new/estab patient 60 minSherif Facundo Pain ManagementStart: 08-08-2021 End: 41-04-6684yfiadojgjvPfgak Carnahan Other noEnSol Other Start: 35-34-1139Sbdeutxqh encounterKejosé MorenoNatan Family Medicine ReeuskyStart: 08-07-2021 End: 20-48-9244rpxdtxnzklKahtz Carnahan Other noEnSol Other Start: 65-53-7990Efodca outpatient visit 15 minutes Giovanni Banks [facility] [place]Start: 30-18-6887Rbjcgxufx encounter Giovanni Banks [facility] [place]Start: 08-01-2021 End: 38-01-8201eaxqaupemvWclsa Josh Other noEnSol Other Start: 27-75-9549Rmeexpssr encounterKevin JoshB[facility] Family Medicine [place]Start: 07-29-2021 End: 51-65-0739zbjzlycnmiCmowa Josh Other noEnSol Other Start: 70-43-4123Ptikwnjoc encounterKejosé MorenoB[facility] Family Medicine [place]Start: 07-22-2021 End: 12-67-7059obaddieopiMnpgo Jsoh Other noEnSol Other start: 87-82-7661Iieeaw outpatient visit 25 minutes Giovanni MorenoB[facility] Family Medicine [place]Start: 07-03-2021 End: 56-38-8130gcyghvglorZlxlv Josh Other noEnSol Other Start: 35-38-1284Xovohtpsy encounterKejosé MorenoB[facility] Family Medicine [place]Start: 06-25-2021 End: 08-23-2457hitqwhkrqlWwrht Josh Other noEnSol Other Start: 73-39-6714Gapfqwejg encounterKevin JoshB[facility] Family Medicine [place]Start: 06-20-2021 End: 40-78-5580ededfkpkowShalz Josh Other noEnSol Other start: 04-76-8160Xscmeo outpatient visit 25 minutes Giovanni MorenoB[facility] Family Medicine [place]Start: 06-06-2021 End: 57-53-2079mxwuolcmrcHfrne Josh Other Flo[employer] Other Start: 56-89-5898Wfxmlcpux encounterKevin JoshB[facility] Family Medicine [place]Start: 06-05-2021 End: 59-37-0062aodwewtphjNprqp Josh Other no[employer]Sol Other Start: 68-35-3246Rohwbjffr encounterKevin JoshG Family Medicine [place]Start: 05-23-2021 End: 37-76-7584pjhnjydvqeDwlbf Josh Other noEnSol Other Start: 37-50-0013Buunyza encounter procedureKevin JoshB[facility] Family Medicine [place]Start: 69-80-4518Igdwwdsrl encounterKevin JoshG Family Medicine [place]Start: 05-15-2021 End: 31-68-0914wiiueikckcWmfet Carnahan Other [employer] Other Start: 41-40-3978Xpvwrnmez encounterKevin JoshB[facility] Family Medicine [place]Start: 05-02-2021 End: 28-23-6721fshbrwaxozFqxkl Carnahan Other Flo[employer] Other Start: 65-61-0674Ppjmsszlw encounterKejosé MorenoG Family Medicine [place]Start: 05-01-2021 End: 15-29-2979fazsxhyqxuVtjqp Josh Other no[employer]Sol Other Start: 01-17-6110Vzsjta outpatient visit 15 minutes Giovanni JoshB[facility] Family Medicine [place]Start: 04-30-2021 End: 56-17-0147rqtnsvhzwbUrnrd Josh Other noEnSol Other Start: 84-23-8175Xtujtnnnt encounterKevin DmitriyUMass Memorial Medical Center Family Medicine [place]Start: 04-29-2021 End: 67-87-9730qywwhlxbieKhcgd Carnahan Other [employer] Other Start: 03-55-8765Xjudwlcsq encounterHollyjosé MorenoB[facility]NER DEL [facility] Family Medicine [place]Start: 04-02-2021 End: 39-79-5999wyikvdgivwIgvtc Carnahan Other [employer]Sol Other Start: 97-92-8072Ehucix outpatient visit 25 minutes Giovanni DmitriyjewellB[facility] DEL [facility] Family Medicine [place]hurstyStart: 03-25-2021 End: 50-95-9854pytbntcxhrDrrkf Josh Other no[employer]Sol Other Start: 77-75-7122Fmjmrhgiw encounterKejosé DmitriyUMass Memorial Medical Center Family Medicine [place]greenhurstyStart: 03-21-2021 End: 98-26-2490xirijxdmowKlphr Carnahan Other no[employer]Sol Other Start: 13-61-4499Ufiqhtztn encounterKejosé IzaguirreUMass Memorial Medical Center Family Medicine [place]hurstyStart: 03-04-2021 End: 20-48-8077iwrevfzttpLpnugqx Buehrer Other noEnSol Other Start: 55-42-8493Aopkma outpatient new 45 minutes Domenico Gabriel Vascular SurgeryStart: 02-27-2021 End: 25-99-3002yadredcdqkGssjz Carnahan Other [employer]Sol Other Start: 63-51-2277Uyypevjxu encounterKejosé JoshB[facility] Family Medicine [place]hurstyStart: 02-20-2021 End: 26-98-0003lfdqcgnojtDdxgp Josh Other [employer]Sol Other Start: 39-41-6957Wkpfaluoj encounterAmerican Healthcare Systems Medicine [place] Procedures DateProcedureProcedure DetailPerforming ClinicianStart: 16-93-4350Kapjdqov blood count with white cell differential, automatedRoxane Bills MD Work Phone: Start: 11-55-5187Vaqeiculxqsno metabolic panelRoxane Bills MD Work Phone: Start: 33-88-0183Lpfgctoa blood count with white cell differential, automatedRoxane Bills MD Work Phone: Start: 02-22-5440Jphwfmxacnfxv metabolic panelRoxane Bills MD Work Phone: Start: 84-69-5463Vxchqtuk blood count with white cell differential, automatedRoxane Bills MD Work Phone: Start: 74-58-4078Fhiestdieaiyh metabolic panelRoxane Bills MD Work Phone: Start: 78-41-4849VVGFUUH ELECTRO, RANDOM URINERoxane Bills MD Work Phone: Start: 78-14-8369Qphtl immunofixationGloria [facility] DO Work Phone: Start: 93-11-0525Cxpiatymgaqrn metabolic panelRoxane Bills MD Work Phone: Start: 21-73-0449Xamqk cultureGloria [facility] DO Work Phone: Start: 12-27-2024 End: 11-19-9263Ugaij nucleic acid assayGloria [facility] DO Work Phone: Start: 19-64-1274Qkafnsom screenRoxane Lr on above:Order Comment: communicated to JYOTSNA WU Transfuse now? Y Number of units to transfuse now? 68012) Transfuse now? Y Number of units to transfuse now? 1Result Comment: PERFORMED BY:[facility], [place] [phone] MEDICAL DIRECTORELAINE CHAUDHARY M.D.Start: 67-99-5855Tmramcvxdhlgmdw of bilateral kidneysGloria Tyson DO Work Phone: Start: 07-18-9227Hkwfq chest X-rayGloria Tyson DO Work Phone: Start: 93-31-0031Ewxnjulqipfmu metabolic panelRoxane Bills MD Work Phone: Start: 42-09-4261Hrjybh Tyson DO Work Phone: Start: 04-25-8842Uleoc chest X-rayGloria Tyson DO Work Phone: Start: 77-30-0613Rxrke dip stick/tablet rgnt non-auto w/o micrscpAenrique Bills MD Work Phone: Start: 12-21-2024 End: 61-44-1404Xztklge bacterial blood aerobic w/id isolatesRoxane Bills MD Work Phone: Start: 61-64-5774Zzzpqzib blood count with white cell differential, automatedRoxane Bills MD Work Phone: Start: 44-29-6212Xhxzhyxrwxojr metabolic panelRoxane Bills MD Work Phone: Start: 83-82-3103Crhdtzivtsygb metabolic panelRoxane Bills MD Work Phone: Start: 50-72-0823YDHYFPX ELECTRO, RANDOM URINERoxane Bills MD Work Phone: Start: 78-61-8904Nboxf of magnesiumRoxane Bills MD Work Phone: Start: 23-77-6101Rhxutxzf blood count with white cell differential, automatedRoxane Bills MD Work Phone: Start: 85-58-3403Kndgvuisqotfi metabolic panelRoxane Bills MD Work Phone: Start: 91-06-8225Tvczmbtnuceva metabolic panelRoxane Bills MD Work Phone: Start: 23-72-0717Xuhyekmb blood count with white cell differential, automatedRoxane Bills MD Work Phone: Start: 17-60-1044Nvrmvcsrqnucs metabolic panelRoxane Bills MD Work Phone: Start: 67-94-5023Nhjt bld gluc mntr dev cleared fda spec home useAhamelia Lukas Jeff PARK Work Phone: Start: 60-54-8189Nswsnlvb screenRoxane BillsStart: 98-37-7247Yuotvsfp blood count with white cell differential, automatedRoxane Bills MD Work Phone: Start: 00-33-7727Jdoseseadpjbe metabolic panelRoxane Bills MD Work Phone: Start: 33-63-3059Ejvznvbnd B core antibody measurement Peri Tyson DO Work Phone: Start: 35-09-3956Fepvcxcvx b surf antibody hbsHammad Bills MD Work Phone: Start: 39-08-9488HWEYMQXWX B SURFACE ANTIGEN ([facility])Roxane Bills MD Work Phone: Start: 20-73-4437Garotv [employer] Work Phone: Start: 18-38-9236Ciirnamncxhaa metabolic panelRoxane Bills MD Work Phone: Start: 27-78-6185TYPGBJOTQ REQUEST FOR LAB CORPRoxane Bills MD Work Phone: Start: 04-28-8221JJWBLSYBMCL PROFILERoxane Bills MD Work Phone: Start: 37-45-3409Bkhlshyg blood count with white cell differential, automatedRoxane Bills MD Work Phone: Start: 77-83-0750Hoqnnadwxlfpf metabolic panelRoxane Bills MD Work Phone: Start: 37-31-8682Bphz marrow samplingGloria Marbella [facility]EC[facility] Work Phone: Start: 31-52-1254Kvczmdfn blood count with white cell differential, automatedRoxane Bills MD Work Phone: Start: 39-45-8146Ezpfo immunofixationGloria Marbella [facility] Work Phone: Start: 49-87-4394Fouo bld gluc mntr dev cleared fda spec home useJeannie Aguilar MD Work Phone: Start: 08-11-0277Hzec bld gluc mntr dev cleared fda spec home useJeannie Aguilar MD Work Phone: Start: 45-64-0087Oepyrwwg blood count with white cell differential, automatedRoxane Bills MD Work Phone: Start: 27-35-9135Elgclpizymtoo metabolic panelRoxane Bills MD Work Phone: Start: 03-56-0733MMKL K+L LT CHAINS, QN, Rona Alia Bills MD Work Phone: Start: 51-13-9045ZGFYEWJERHNDJV,SERUM ([facility])Roxane Bills MD Work Phone: Start: 28-92-1333E-ray skeletal surveyDO Peri Tyson Work Phone: Start: 01-20-2024 End: 04-13-6163Szch bld gluc mntr dev cleared fda spec home useJeannie Aguilar MD Work Phone: Start: 66-35-3872Iabcxyiij mammography of bilateral breastsDO Peri Tyson Work Phone: Start: 82-89-2605Mdcvmv scan of lower limb veinsDO Periluis Tyson Work Phone: Start: 36-13-1871Xlbgh volume recorder pneumoplethysmographyDO Peri Tyson Work Phone: Start: 95-62-2634Ialz marrow samplingDO Peri Tyson Work Phone: Start: 36-67-2252Cjfmqhsbbs examination, osseous survey, completeDO ePri Tyson Work Phone: Start: 28-49-2265FOT of left hipDO Peri Tyson Work Phone: Start: 56-54-1081Jxhfjthnpsuoqpsnovg of cataract with intraocular lens implantationDO Peri Tyson Work Phone: Start: 73-41-5640AK lumbar spine wo conDPedro Luis Tyson Work Phone: Start: 76-26-6523Pabld X-ray of left hipDO Peri Tyson Work Phone: Start: 16-88-1309Vbsazd scan of lower limb veinsDO Peri Tyson Work Phone: Start: 69-46-5793Lotustths mammography of bilateral breastsDPedro Luis Tyson Work Phone: Start: 99-35-8159Pzwmep X-rayDO Peri Tyson [employer] Phone: Start: 03-32-5543U-ray of lumbar spine, two or three viewsDO Peri Tyson [employer] Phone: Start: 34-71-8578Qfqcp cultureDPedro Luis Izaguirreahan Work Phone: Start: 11-29-1331Zebm marrow samplingDO Giovanni Moreno Work Phone: Start: 77-23-5141Muduebmtqx examination, osseous survey, completeDPedro Luis Moreno Work Phone: Urine Joseph [employer] Work Phone: Urine Joseph [employer] Work Phone: Plan of Treatment DateCare ActivityDetailAuthorStart: 31-20-1663Fygqheiiimlq Vaccine: 65+ Years (3 of 3 - PPSV23 or PCV20)Pneumococcal Vaccine: 65+ Years (3 of 3 - PPSV23 or PCV20)[facility] HealthcareStart: 04-18-2025 End: 77-56-1752Ammheop encounter /06/2026 1:45 PM EST Office Visit [facility] [address] [place] [address] Svetlana Garcia, [address] [place] [place] [address] [facility] PulmonologyStart: 03-13-2025 End: 07-33-1679Xjrbceb encounter /01/2025 8:40 AM EST Office Visit [facility] [address] [place] [address] Mack Tsai DPM [address] [address] [facility]oto PodiatryStart: 03-07-2025 End: 74-36-1595Fwahsix encounter procedureNOMS PULMStart: 03-06-2025 End: 22-19-6609Eqclybl encounter xyawqcotm22/24/2025 10:10 AM EST Office Visit [facility] [address] [place] [address] Jeannie Aguilar MD [address] [place] [address] [facility] EndocrinologyStart: 23-39-1121UxvzvopqfTriHealthtart: 02-15-2025 End: 16-81-5711ZasywbjeqTriHealthtart: 93-42-3184BdvmcsxzhSelect Medical [facility] CenterStart: 26-22-0679WtsyqyxpwTriHealthtart: 64-77-1122XodoywjxdSelect Medical [facility] CenterStart: 27-61-0852PediqhtppTriHealthtart: 37-57-4927UydufywdiSelect Medical [facility] CenterStart: 49-27-2605SeejttiklSelect Medical [facility] CenterStart: 01-17-2025 End: 87-08-6367FwasywxceSelect Medical [facility] CenterStart: 01-21-2693KanoklxkoSelect Medical [facility] CenterStart: 43-63-9132BnkuueyvcSelect Medical [facility] CenterStart: 80-05-6070KskwhudvhSelect Medical [facility] CenterStart: 55-05-0910LpvwqgrhrSelect Medical [facility] CenterStart: 53-53-5045LtrapmicjSelect Medical [facility] CenterStart: 54-64-8999SjkwjfvxpSelect Medical [facility] CenterStart: 31-99-9439MetloavsdSelect Medical [facility] CenterStart: 25-47-2146PhivwwkskSelect Medical [facility] CenterStart: 28-88-2428SzkmdkyxySelect Medical [facility] CenterStart: 91-32-7066Mwapabauanqquq of prophylactic treatmentSelect Medical [facility] CenterStart: 63-56-3348Fgluyxng to infectious diseases physicianSelect Medical [facility] CenterStart: 12-28-2024 End: 65-32-8409YzhoelqfpSelect Medical [facility] CenterStart: 12-27-2024 End: 91-64-6758OvtixuliwSelect Medical [facility] CenterStart: 79-37-5169GzkkfuxqfSelect Medical [facility] CenterStart: 12-27-2024 End: 40-22-1536GhanhituqSelect Medical [facility] CenterStart: 97-21-5923Dxaijdra to oncologistSelect Medical [facility] CenterStart: 25-38-5482IhcrmDelaware County Hospital CenterStart: 87-83-8680Mbvqcyhg admissionSelect Medical [facility] CenterStart: 07-50-6848DdqlamoybSelect Medical [facility] CenterStart: 12-21-2024 End: 74-87-6426LstifkmvaSelect Medical [facility] CenterStart: 60-92-5482XyaveycoaSelect Medical [facility] CenterStart: 12-19-2024 End: 87-46-5258Granori encounter procedureNOMS [place] Soto PodiatryComment on above:Diabetes mellitus due to underlying condition with diabetic polyneuropathy, with long-term current use of insulin (HCC) (Primary Dx); Pain due to onychomycosis of toenails of both feet; Xerosis cutisStart: 03-58-3536HdajvcsrwTriHealthtart: 12-13-2024 End: 01-11-3164UbrtjoxxzTriHealthtart: 38-47-7682SulseotqzTriHealthtart: 30-09-5436PYXIT-19 Vaccine ( season) COVID-19 Vaccine ( season)NOM[facility] HealthcareStart: 47-91-1180Wdlbudzox vaccinationInfluenza Vaccine (#1)[facility] HealthcareStart: 12-09-2024 End: 76-08-1438Osjplwr encounter procedureNOMS [place] PODStart: 82-33-9292NpligrvyaTriHealthtart: 26-66-8249MymduckcxTriHealthtart: 97-80-9216WwntqgikbTriHealthtart: 05-55-7793ZkzjtpvtpTriHealthtart: 11-21-2024 End: 88-66-6472XnlaafbgzTriHealthtart: 11-21-2024 End: 96-16-9050Nilcpfm encounter procedureNOMS ENDOCRINOLOGYStart: 11-14-2024 End: 97-88-7450Iqsdjns encounter rlszknmum46/04/2025 9:00 AM EDT Office Visit [facility] [address] [place] [address] Jeannie Aguilar MD [address] [place] [address] ArrivedREGINALDO Marie EndocrinologyComment on above:ArrivedStart: 11-14-2024 End: 15-90-8183DjexitkvxTriHealthtart: 43-50-5542VxupilspgTriHealthtart: 09-30-2024 End: 09-50-6327Tzsmxsn encounter jodkackgv08/20/2025 10:10 AM EDT Office Visit [facility] [address] [place] [address] Mack Tsai DPM [address] [facility] Justin [address] [place] [address] Diabetes mellitus due to underlying condition with diabetic polyneuropathy, with long-term current use of insulin ([facility]) (Primary Dx); Pain due to onychomycosis of toenails of both feet; Xerosis cutisNOMS [place] PODComment on above:Diabetes mellitus due to underlying condition with diabetic polyneuropathy, with long-term current use of insulin ([facility]) (Primary Dx); Pain due to onychomycosis of toenails of both feet; Xerosis cutisStart: 50-03-4348NgqwlrpycTriHealthtart: 09-06-2024 End: 28-70-9334Sfyxvbu encounter jbgyelhkz32/27/2025 2:20 PM EDT Office Visit [facility] [place] [facility] [address] [place] [address] Mack Tsai DPM [address] [address] [facility] PODStart: 08-25-2024 End: 32-86-4072Txqjbsy encounter procedureNOMS PULMComment on above:Arrived Start: 08-22-2024 End: 44-89-5141Rrozrau encounter procedureNOMS ENDOCRINOLOGYComment on above: Type 2 diabetes mellitus with hyperglycemia, with long-term current use of insulin ([facility])Start: 75-02-9459Nfikwdjuv monophosphate.cyclic [Moles/volume] in Serum or PlasmaTriHealthtart: 54-98-0802Apfjreudkj factor [Units/volume] in Serum or PlasmaTriHealthtart: 07-14-2024 End: 31-13-2602Csksjxv encounter /03/2025 2:00 PM EDT Office Visit [facility] [address] [place] [address] Svetlana Garcia DO [address] [place] [address] [facility] PULMStart: 06-24-2024 End: 36-60-8254Wryozub encounter borywcosz66/14/2025 8:30 AM EDT [facility] [address] [place] [address] Mack Tsai DPM [address] [address] [facility] PODStart: 05-25-2024 End: 38-16-9728Dsqawlk encounter procedureNOSAINT JOHN'S SAINT [facility]ANC[facility] ENDOCRINOLOGYComment on above: Type 2 diabetes mellitus with hyperglycemia, with long-term current use of insulin (CMS/HCC)Start: 04-15-2024 End: 13-28-1140Hslnjcb encounter procedureNOMS [place] PODComment on above:Diabetes mellitus due to underlying condition with diabetic polyneuropathy, with long- term current use of insulin (CMS/HCC) (Primary Dx); Pain due to onychomycosis of toenails of both feetStart: 41-00-4121Fetzfju [facility] Work Phone: Start: 02-02-2024 End: 31-15-8191Ewzywbm encounter procedureNOEASTERN OKLA[facility] PODComment on above:Diabetes mellitus due to underlying condition with diabetic polyneuropathy, with long- term current use of insulin (CMS/HCC) (Primary Dx); Pain due to onychomycosis of toenails of both feetStart: 01-20-2024 End: 75-34-7276Brslpch encounter procedureNOSAINT JOHN'S SAINT [facility]ANC[facility] ENDOCRINOLOGYComment on above: Type 2 diabetes mellitus with hyperglycemia, with long-term current use of insulin (CMS/HCC)Start: 01-14-2024 End: 97-70-7667Dnxlljn encounter procedureNOSAINT JOHN'S SAINT FRANCIS [facility]ITAL PULMComment on above:Arrived Start: 01-12-5195Hwrandzwm vaccinationInfluenza Vaccine (#1)[facility] Start: 81-07-5879Lotimyc [facility] Work Phone: Start: 07-16-2023 End: 00-88-3176Oedwyyk encounter nvaymrnfa63/04/2024 1:45 PM EDT Office Visit [facility] [address] [place] [address] Svetlana Garcia, DO [address] [place] [address] [facility]OMF[facility]EM[facility] PULMStart: 80-94-8732JGwA/Tdap/Td Vaccines (3 - Td or Tdap)DTaP/Tdap/Td Vaccines (3 - Td or Tdap)NOM HealthcareStart: 06-29-2023 End: 20-45-3213Wxqstpx encounter eqpwrsbsv62/18/2024 8:40 AM EDT Office Visit [facility] [place] [facility] [address] [place] [address] Mack Tsai, DPM [address] [address] [facility] [place] PODStart: 24-27-1426Gmnnos scan of lower limb veinsUS venous duplex LE [facility] CenterStart: 85-27-5483LC Lower extremity vein - bilateralSelect Medical [facility] CenterStart: 02-12-2023 End: 98-43-2860QnqivhvsoSelect Medical [facility] CenterStart: 12-18-2022 End: 66-61-9165JfojqluleSelect Medical [facility] CenterStart: 56-94-5848Pjwhtbh C- peptide measurementSelect Medical [facility] CenterStart: 66-07-3917KtbqdockgSelect Medical [facility] CenterStart: 31-25-2101IttdqwxhcSelect Medical [facility] CenterStart: 64-94-4048AiydjsqirSelect Medical [facility] CenterStart: 79-59-2286WwpmknaqlSelect Medical [facility] CenterStart: 09-26-2021 End: 88-70-3519OpusuhlovSt. Elizabeth Hospital Work Phone: Start: 12-85-4550Bpbubssqa for malignant neoplasm of breastMammogramNOMS HealthcareStart: 82-16-0779Pxagylnkx for malignant neoplasm of cervixNOMS HealthcareStart: 13-22-8890Auzcjajjx for malignant neoplasm of cervixPap SmearNOMS HealthcareStart: 10-38-4306IRB Vaccines (1 of 1 - Standard series)MMR Vaccines (1 of 1 - Standard series)[facility] HealthcareStart: 1958 Screening for malignant neoplasm of colonHedrick Medical Center24 hour urine measurementMadison HealthAdenosine monophosphate.cyclic [Moles/volume] in Serum or PlasmaMadison HealthAlbumin [Mass/volume] in Serum or PlasmaMadison HealthAlbumin [Mass/volume] in Serum or PlasmaMadison Health Albumin/Globulin ratioMadison HealthAlbumin/Globulin ratio Madison HealthAlbumin/Globulin ratioMadison HealthAnion gap measurementMadison HealthAnion gap measurementMadison HealthBacteria identified in Blood by [facility] Work Phone: Bacteria identified in Urine by CultureMadison HealthBasophils [#/volume] in Blood by Automated countMadison HealthBasophils [#/volume] in Blood by Automated count Madison HealthBasophils/100 leukocytes in Blood by Automated countMadison HealthBasophils/100 leukocytes in Blood by Automated countMadison HealthBone marrow samplingMadison HealthCBC W Auto Differential panel - BloodCBC auto differential Lab STAT 11/28/2024 11:25 AM [facility] Work Phone: cbc W Auto Differential panel - BloodCBC auto differential Lab STAT 12/13/2024 8:57 AM [facility] Work Phone: cbC W Auto Differential panel - BloodCBC auto differential Lab STAT 12/26/2024 10:05 AM [facility] Work Phone: cbc W Auto Differential panel - BloodCBC auto differential Lab Routine 01/17/2025 2:15 PM [facility] Work Phone: Comprehensive metabolic 1999 panel - Serum or Plasma [facility] Work Phone: Comprehensive metabolic 1999 panel - Serum or Plasma Madison HealthComprehensive metabolic 1999 panel - Serum or PlasmaMadison HealthComprehensive metabolic 1999 panel - Serum or [facility] HospitalComprehensive metabolic 1999 panel - Serum or PlasmaMadison HealthComprehensive metabolic 2000 panel - Serum or PlasmaComprehensive metabolic panel Lab Routine 08/23/2024 11:34 AM [facility] Work Phone: Comprehensive metabolic 1999 panel - Serum or Plasma [facility] HealthComprehensive metabolic 1999 panel - Serum or [facility] HospitalComprehensive metabolic 1999 panel - Serum or [facility] HospitalComprehensive metabolic 1999 panel - Serum or PlasmaMadison HealthComprehensive metabolic 1999 panel - Serum or PlasmaMadison HealthComprehensive metabolic 1999 panel - Serum or [facility] Comprehensive metabolic 1999 panel - Serum or [facility] HospitalCommidwest orthopedic specialty hospitalhenve metabolic 1999 panel - Serum or [facility] HospitalComprehensive metabolic 1999 panel - Serum or [facility] HospitalComprehensive metabolic 1999 panel - Serum or Plasma Madison HealthDrugs identified in UrineSt. Elizabeth Hospital Work Phone: DXA Skeletal system.axial Views for bone density Madison HealthDXA Skeletal system.axial Views for bone densityMadison HealthEKG 12 channel [facility] HospitalElectrophoresis: hkode-0-ixrxtjfhWcyfyoqrxMadison Health Electrophoresis: rsioe-6-uywrnbtzEpvswzuobMadison Health Electrophoresis: zpkvh-4-hedqyxwcPzrgktfkuMadison Health Electrophoresis: ryfzd-3-fuspqqzxZpzsbqomiMadison Health Electrophoresis: fhaqq-0-amfobnegLnworoquoMadison Health Electrophoresis: jbnci-7-lxoufqcsQfmxkocgbMadison Health Electrophoresis: beta-globulinMadison HealthElectrophoresis: beta-globulinMadison HealthElectrophoresis: beta-globulin Madison HealthElectrophoresis: gamma globulinMadison HealthElectrophoresis: gamma [facility] Orthopedic CenterEosinophils/100 leukocytes in Blood by Automated countMadison HealthEosinophils/100 leukocytes in Blood by Automated countOnslow Memorial Hospitals Regional Medical CenterErythrocyte distribution width [Ratio] by Automated count Madison HealthErythrocyte distribution width [Ratio] by Automated [facility] CenterErythrocytes [#/volume] in Blood Madison HealthErythrocytes [#/volume] in [facility] Ruby Memorial HospitalFerritin [Mass/volume] in Serum or [facility] Work Phone: Ferritin [Mass/volume] in Serum or [facility] HospitalGlobulin [Mass/volume] in SerumMadison HealthGlobulin [Mass/volume] in [facility] Hospital, AvonGlobulin [Mass/volume] in SerumMadison HealthGlomerular filtration rate [Volume Rate/Area] in Serum, Plasma or Blood by [facility] HospitalGlomerular filtration rate [Volume Rate/Area] in Serum, Plasma or Blood by [facility] HospitalHematocrit [Volume Fraction] of [facility] Memorial HospitalHematocrit [Volume Fraction] of [facility]. [facility] Memorial HospitalHemoglobin [Mass/volume] in Blood Madison HealthHemoglobin [Mass/volume] in [facility] Memorial HospitalIgA [Mass/volume] in Serum or [facility] HospitalIgA [Mass/volume] in Serum or [facility] HospitalIgA [Mass/volume] in Serum or [facility] HospitalIgG [Mass/volume] in Serum or [facility] HospitalIgG [Mass/volume] in Serum or [facility] HospitalIgG [Mass/volume] in Serum or [facility] HospitalIgM [Mass/volume] in Serum or [facility] HospitalIgM [Mass/volume] in Serum or [facility] HospitalIgM [Mass/volume] in Serum or [facility] HospitalIron and Iron binding capacity panel - Serum or PlasmaIron and TIBC Lab Routine 08/23/2024 11:34 AM [facility] light chains.free [Mass/volume] in Serum Madison HealthKacity of hope, [place] light chains.free [Mass/volume] in Serum Madison HealthKacity of hope, [place] light chains.free/Lambda light chains.free [Mass Ratio] in SerumMadison HealthKappa light chains.free/Lambda light chains.free [Mass Ratio] in SerumMadison HealthLactate dehydrogenase [Enzymatic activity/volume] in Serum or Plasma by Lactate to pyruvate reactionLactate dehydrogenase Lab Routine 08/23/2024 11:34 AM EDSumner Regional Medical CenterLambda light chains.free [Mass/volume] in Serum or PlasmaMadison HealthLambda light chains.free [Mass/volume] in Serum or PlasmaMadison HealthLeukocytes [#/volume] corrected for nucleated erythrocytes in Blood by Automated [facility] HospitalLeukocytes [#/volume] corrected for nucleated erythrocytes in Blood by Automated [facility] Leukocytes [#/volume] in BloodMadison HealthLeukocytes [#/volume] in BloodMadison HealthLymphocytes [#/volume] in Blood by Automated [facility] CenterLymphocytes [#/volume] in Blood by Automated [facility] CenterLymphocytes/100 leukocytes in Blood by Automated [facility] Lymphocytes/100 leukocytes in Blood by Automated [facility] CenterMCH [Entitic mass] by Automated [facility] CenterMCH [Entitic mass] by Automated [facility] CenterMCHC [Mass/volume] by Automated [facility] CenterMCHC [Mass/volume] by Automated [facility] CenterMCV [Entitic volume] by Automated [facility] CenterMCV [Entitic volume] by Automated [facility] CenterMeasurement of monoclonal protein concentrationMadison HealthMG Breast - bilateral ScreeningMadison HealthMonocytes [#/volume] in Blood by Automated countMadison HealthMonocytes [#/volume] in Blood by Automated countMadison HealthMonocytes/100 leukocytes in Blood by Automated countMadison HealthMonocytes/100 leukocytes in Blood by Automated countMadison Health Neutrophils [#/volume] in Blood by Automated countMadison HealthNeutrophils [#/volume] in Blood by Automated countMadison HealthNeutrophils/100 leukocytes in Blood by Automated [facility] CenterNeutrophils/100 leukocytes in Blood by Automated count Madison HealthNucleated erythrocytes [Presence] in Blood by Automated [facility] CenterNucleated erythrocytes [Presence] in Blood by Automated [facility] CenterPatient EducationSelect Medical [facility] Work Phone: Patient referralSelect Medical [facility] Work Phone: Platelet mean volume [Entitic volume] in Blood by Automated [facility] CenterPlatelet mean volume [Entitic volume] in Blood by Automated [facility] CenterPlatelets [#/volume] in BloodMadison HealthPlatelets [#/volume] in BloodMadison HealthProtein [Mass/volume] in Serum or Plasma Madison HealthProtein [Mass/volume] in Serum or Plasma Madison HealthProtein [Mass/volume] in UrineMadison HealthProtein electrophoresis, serumProtein electrophoresis, serum Lab Routine 08/23/2024 11:34 AM [facility] Work Phone: Protein electrophoresis, serumProtein electrophoresis, serum Lab STAT 12/06/2024 11:25 AM [facility] Work Phone: Protein electrophoresis, serumProtein electrophoresis, serum Lab Routine 02/06/2025 10:35 AM [facility] Work Phone: Radiologic examination osseous survey [facility] HospitalRadiologic examination osseous survey [facility] HospitalRheumatoid factor [Units/volume] in Serum or Plasma TriHealtherum immunofixationTriHealtherum immunofixationMadison HealthUS Heart TransthoracicMadison HealthXR Chest 2 [facility] CampusXR Lumbar spine 2 or 3 [facility] CampusXR Pelvis 1 or 2 [facility] CenterFirelands Regional Medical CenterFirelands Regional Medical CenterFirelands Regional Medical CenterFirelands Regional Medical CenterFirelands [facility] Immunizations Immunization DateImmunizationNotesCare ExecvceaVxocwtdi72-27-8698cvankbufs virus vaccine, unspecified formulationRoxane Bills MD Work Phone: [facility] CenterDmzaxiorov41-88-4291JYC, preF3, adj, pf Christopher Germain DO Work Phone: [facility]09-05-2024Seasonal trivalent influenza vaccine, adjuvanted, preservative freeChristopher Germain DO Work Phone: [facility]09-05-2024influenza virus vaccine, unspecified formulationSvetlana Garcia DO Work Phone: [facility] CenterCckdedzima75-57-4146Wjgawy-Xyd documentation purposes onlyPeri Tyson Other [facility]10-03-2023tetanus toxoid, reduced diphtheria toxoid, and acellular pertussis vaccine, adsorbedDO Peri [facility] Work Phone: [phone] [place], [place] [address]809-28-2023COVID-19 (PFIZER) 12Y and olderDO Peri [facility] Work Phone: [facility]09-05-2023Hepatitis B vaccine (recombinant), CpG adjuvantedDO Peri [facility] Work Phone: [facility]09-01-2023influenza, injectable, quadrivalent, preservative freePeri Tyson Other [facility]09-01-2023influenza virus vaccine, unspecified formulationMack Tsai DPM Work Phone: noSt. Luke's HospitalYxndqqkxng87-34-3425qnqhzhrae, injectable, quadrivalent, preservative freeMack Tsai DPM Work Phone: [facility] CenterKinrrgxdoh96-09-7794Ujiespxda B vaccine (recombinant), CpG adjuvantedMack Tsai DPM Work Phone: [facility] CenterHplglogffk79-68-5310Ikavejtmkpvg Conjugate PCV 20 Mack Tsai DPM Work Phone: [facility] CenterLhtyjespih27-29-9629FYMWJ-85 Pfizer (bivalent) Peri Marbella Other [facility]09-14-2022Influenza, injectable, [place] Canine Kidney, preservative free, quadrivalentMack Tsai DPM Work Phone: [facility] CenterAkxdzlibkh13-56-9513mugjxac toxoid, reduced diphtheria toxoid, and acellular pertussis vaccine, adsorbedGlanh Tyson Other [employer] Other [id number], seasonal, injectableGlanh Tyson Other [facility]07-18-2022COVID-19 Vaccine Moderna - Documentation Purposes OnlyPeri Tyson Other [facility]07-18-2022 pneumococcal polysaccharide vaccine, 23 valentPeri Tyson Other [employer] Other [id number] mRNA-1273 (Moderna)DO Giovanni Moreno Work Phone: [facility]11-30-2021COVID-19 Vaccine Moderna - Documentation Purposes OnlyGiovanni Moreno Other [facility]11-29-2021Moderna SARS-CoV-2 Booster VaccinationMack Tsai DPM Work Phone: [facility] CenterHjhbwpgang81-03-3160SEHVA-99 mRNA-1273 (Moderna) DO Giovanni Moreno Work Phone: [facility]10-01-2021Flu Vaccine - AdultDO Peri Marbella Work Phone: [facility] Health10-01-2021influenza, seasonal, injectableDO Giovanni Moreno Work Phone: [facility]10-01-2021Gloria Marbella HECK Work Phone: [facility]09-23-2021influenza, seasonal, injectableGiovanni Moreno Other [facility]09-23-2021Influenza, injectable, Madin Nkechi Canine Kidney, preservative free, quadrivalentNicholas Brown DPM Work Phone: [facility] CenterWmubuvtnvn61-47-1608aypgzh vaccine recombinant Giovanni Moreno Other [employer] Other 06105703-40-1576aogjtl vaccine recombinantGiovanni Moreno Other [employer] Other 04-743428-59-3580fcwbthvrblvi polysaccharide vaccine, 23 valentKejosé Moreno Other [employer] Other 04-381746-02-9494YSXYT-96 Vaccine Pfizer - Documentation Purposes OnlyGiovanni Moreno Other [facility]04-01-2021COVID-19 mRNA-1273 (Moderna)DO Giovanni Moreno Work Phone: [facility]03-25-2021COVID-19 Vaccine Pfizer - Documentation Purposes OnlyGiovanni Moreno Other [facility]10-05-2020influenza, injectable, quadrivalent, preservative freeNicholas Brown DPM Work Phone: noEpicPledge Nyupoynwtt84-37-1718Guizfgjtp, injectable, Madin Monroe Canine Kidney, preservative free, quadrivalentNicholas Brown DPM Work Phone: [facility] CenterNahgllecvc86-58-3936cwtwlmheagng conjugate vaccine, 13 valNeil Moreno Other [place] [employer] Other 10017110-13-6698Dsbdxkmne, injectable, Madin Monroe Canine Kidney, quadrivalent with preservativeNicholas Bigg DPM Work Phone: [facility] CenterGliysbxfqo00-62-9297htpzgiwjj, injectable, quadrivalent, contains preservativeNicholas Bigg DPM Work Phone: [facility] CenterNfzrcwgcde21-18-9965jobzmmynfkuv polysaccharide vaccine, 23 valentNicholas Brown DPM Work Phone: [facility] CenterYbtcsshbqi89-19-7444kqvfrbtyj virus vaccine, whole virusNicholas Bigg DPM Work Phone: [facility] CenterQvucrzkpoa81-92-8197iimazrjijtqu polysaccharide vaccine, 23 valentNicholas Bigg DPM Work Phone: [facility] Payers DatePayer CategoryPayerPolicy [id number] Health [id number] MedicareAETNA MEDICARE ADVANTAGE AETNA MEDICARE REPLACEMENT [id number] 2023-Present [address] [place] [address] [id number]-gjo [id number] Health Insurance [id number] [id number] 2.16840.0.66550[id number] 2..1.155335.[id number] 2.16840.1.554209.3.57[id number] 2..1.919044.3.57[id number] 2..1.621986.3.57[id number] 2..1.214883.3.57[id number] 2..1.520365.3.57[id number] 2..1.573007.3.579.[id number] 2..1.962136.3.579.2.663563-56-8225Onbxnxj6793936 2..1.062952.3.579.2.485094-69-9765Ypjyjht1566466 2..1.819191.3.579.2.208501-30-2284Joaxscx1944266 2..1.989942.3.579.2.121703-87-7139Vqhimyq9690139 2.840.1.947594.3.579.2.614694-45-4488Wdtpbnb9446906 2.0.1.695055.3.579.2.788343-18-1603Oqmbyvr9141316 2.16.840.1.090857.3.579.2.636323-32-2486Tdlnvel1561908 2..840.1.438952.3.579.[id number] 2.16.840.1.0235[id number] 2.16.840.1.46[id number] 2.16.840.1.047652.3.579.2.531 [id number] 2.16.840.1.8[id number] 2.16.840.1.0[id number] 2.16.840.1.168978.3.579.2.531 [id number] 2.16.840.1.3[id number] 2.16.840.1.795377.3.579.2.531 Social History DateTypeDetailFacilityStart: 04-20-2023 End: 06-88-2944Jjj Assigned At [facility] videof.me Other Start: 10-23-2021 End: 78-85-2552Zasbfby smoking status NHISNever smoked tobacco (finding) TriHealthtart: 17-65-1671Cmu Assigned At [facility] Systemtart: 26-78-4195Udppmzi use and exposure Smokeless tobacco non-userNOMS HealthcareStart: 04-20-2023 End: 57-96-0268Klppwbv intakeLifetime non-drinker (finding)[facility] HealthcareStart: 04-20-2023 End: 45-14-3146Gatninn of Social functionAMERICAN FORK HOSPITAL HealthcareStart: 34-77-7585Fzkiomg CommentCaffeine intake: 2-3 cups per dayHedrick Medical CenterStart: 28-51-8838Oqr Assigned At BirthNot on fileAMERICAN FORK HOSPITAL HealthcareStart: 02-29-2024 End: 92-55-6369WfoItfelx (finding)TriHealthtart: 15-87-9556Drpeqiq smoking status NHISEx-smoker (finding)TriHealthtart: 76-26-6862AmnkkinobSt. Elizabeth Hospital Work Phone: Start: 46-33-1891XvkTzjywnDBVY HealthcareNEGATED: Highlighted rowStart: NINFHistory of tobacco usePassive smokerHedrick Medical Center Medical Equipment Procedure CodeEquipment CodeEquipment Original TextEquipment IdentifierDates Phacoemulsification of cataract with intraocular lens implantationLENS ACRYSOF IOL [id number]: 73-41-2036Mxeyuvkgawlnfubiavn of cataract with intraocular lens implantationLENS ACRYSOF IOL QD48V2AQKQmsjs: 05-43-8189Bfasnsmzsjwptxrqgjg of cataract with intraocular lens implantationLENS ACRYSOF IOL JI59X9ESLFhkbh: 52-24-1094Wzviuxrblchrokuezvu of cataract with intraocular lens implantationLENS ACRYSOF IOL IF91G5XVDTcnvp: 62-06-5200Qsnrehswwpavrkjtors of cataract with intraocular lens implantationLENS ACRYSOF IOL ZS75V1PERMbkts: 10-22-2017 Phacoemulsification of cataract with intraocular lens implantationLENS ACRYSOF IOL PG24U9HVHVzxnv: 37-69-9188Ebqzrckevvlawpkcrnf of cataract with intraocular lens implantationLENS ACRYSOF IOL ME85A5YGPWobrh: 38-08-3624Aekrhkfekyfzaumwylu of cataract with intraocular lens implantationLENS ACRYSOF IOL WG44M1BIFAxtvq: 70-93-5264Rawkgriylibtaqipxnk of cataract with intraocular lens implantationLENS ACRYSOF IOL TG34H3XGGMkakx: 67-02-7825Citvceoeetadpddajaa of cataract with intraocular lens implantationLENS ACRYSOF IOL EK18X6FVRHytbk: 10-22-2017 Phacoemulsification of cataract with intraocular lens implantationLENS ACRYSOF IOL FH95Y9DIXUttid: 51-15-7248Hnyouvsionzkawoqyms of cataract with intraocular lens [id number] 056 FDAStart: 19-00-7999Hulrqeeteeuvnqrmxru of cataract with intraocular lens implantationLENS ACRYSOF IOL WR03H9YXTTttad: 74-40-3371Gdxklwczkixzpubmnqi of cataract with intraocular lens implantationLENS ACRYSOF IOL NW41E4TDSUatlk: 10-22-2017 Phacoemulsification of cataract with intraocular lens implantationLENS ACRYSOF IOL ZB75U4PTYZacng: 47-41-1988Tttrtcbavzzrfkurafm of cataract with intraocular lens implantationLENS ACRYSOF IOL TA65U0GCJDzwhe: 01-21-8995Cwhyfdkbgkhxyybpkze of cataract with intraocular lens implantationLENS ACRYSOF IOL LG94J5ONRVkfto: 07-35-6874Afboucizemmgdanwish of cataract with intraocular lens implantationLENS ACRYSOF IOL OS58D9SRUPdwgq: 71-70-1699Tfzxiszmzuspnujfdhc of cataract with intraocular lens implantationLENS ACRYSOF IOL MA19A7SVDDgsgu: 10-22-2017 Phacoemulsification of cataract with intraocular lens implantationLENS ACRYSOF IOL HU14R5YEWAgysr: 23-69-2119Pzgiyzlrtxnmxxdvvde of cataract with intraocular lens implantationLENS ACRYSOF IOL UO47D0FJZJdcfr: 27-85-4484Lzojijojushlgjafxqa of cataract with intraocular lens implantationLENS ACRYSOF IOL DF57L8DIDQxaqo: 84-58-7499Wumclkkqiandbrpfmtq of cataract with intraocular lens implantationLENS ACRYSOF IOL GF36A3ARIObypp: 69-47-4171Gwylmjirovnumllmuak of cataract with intraocular lens implantationLENS ACRYSOF IOL AV07K5GLEOfyxh: 10-22-2017 Phacoemulsification of cataract with intraocular lens implantationLENS ACRYSOF IOL DP42I7NUXBsxyu: 88-84-7204Xopgcyudtqlybwmkwsk of cataract with intraocular lens implantationLENS ACRYSOF IOL MF29D3IGEHjasj: 15-84-5929Gzhwrzwhgebjoqniokm of cataract with intraocular lens implantationLENS ACRYSOF IOL AC67S8GVMUquax: 47-23-9078Oktdsdudimcsplntdfi of cataract with intraocular lens implantationLENS ACRYSOF IOL XU91M6ZNIVnwkn: 89-83-4528Nmvdgybvphzjkeneqkz of cataract with intraocular lens implantationLENS ACRYSOF IOL LO48U3DRJHdgxd: 10-22-2017 Phacoemulsification of cataract with intraocular lens implantationLENS ACRYSOF IOL BS13T4TKPZcvoz: 54-52-3481Jdfmxkdmxxuhaezjjvu of cataract with intraocular lens implantationLENS ACRYSOF IOL AP64V3UUJWoyen: 24-24-2037Imuuklqnizinmbzutip of cataract with intraocular lens implantationLENS ACRYSOF IOL AV18P4LYZCkpxu: 98-15-2704Ffiuhcxbgsamlatfbvf of cataract with intraocular lens implantationLENS ACRYSOF IOL EJ78H1KLUBvxnb: 47-60-8674Njbyonvsojbrnohcwvm of cataract with intraocular lens implantationFDAStart: 69-44-0260Hyoygbrzrlaetgmseua of cataract with intraocular lens implantationFDAStart: 35-03-4392Yjxjdalpnnwtaqpsonh of cataract with intraocular lens implantationFDAStart: 10-22-2017 Phacoemulsification of cataract with intraocular lens implantationFDAStart: 14-36-0207Mpunwxlnupypblyduvm of cataract with intraocular lens implantationFDA Start: 97-91-6512Oueerrzhossigiizyjj of cataract with intraocular lens implantationFDAStart: 30-34-6389Msbsohkgdyyacfewupi of cataract with intraocular lens implantationLENS ACRYSOF IOL ZA08H3XYNZekgl: 98-82-4684Fezhevvsvllgybjsjlo of cataract with intraocular lens implantationFDAStart: 10-22-2017 Phacoemulsification of cataract with intraocular lens implantationFDAStart: 15-79-6069Nnsisbmuxttwpuynxfw of cataract with intraocular lens implantationFDA Start: 86-40-2149Tsxyclmniuahnntupfe of cataract with intraocular lens implantationFDAStart: 93-18-155649647840, 32980212Gzmxg: 08-07-2021 End: 11-15-2025 Goals DatePatient GoalDesired Activity/State Functional Status GtglJlqbnfwhtlRsnsdsHbhoxbfa67-12-9162Vaunzvuvrw statusPatient at [facility] Work Phone: Mental Status LwxoSvlbngzmelTjohgqNeywdzyp75-72-2613Gpsgobnpm functionPatient at [facility] Work Phone: Clinical Notes 02-27-2021 to 12-27-2024 Note Date & KglpQtqaVkgxlbdr55-27-9490 History and physical note Author Margarito Rajan [facility] Date/TimeSeptember 2024 4:39pm [place] [address] Hospitalist H&P Signed Patient: Kelsea Turcios MR#: [id number] : 1960 Acct:[id number] Age/Sex: 64 / F Adm Date: 5 Loc: ER Room: Type: [facility] ER Attending Dr: Copies to: MD Peri Steve, DO Margarito Rajan MD~ HPI DATE OF EXAMINATION: 12/27/24 CHIEF COMPLAINT: fevers with thrombocytopenia HISTORY OF PRESENT ILLNESS: Kelsea Turcios is a 64 y/o F, h/o HTN, CKD IIIb, COPD on 3-5 L baseline NC, 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 and started on active chemotherapy with [...] negative unless noted below or in HPI [facility] Medical History (Updated 12/27/24 @ 16:36 [...] % (Auto) 44.4 % (.) 12/27/24 05:21 Craig % (Auto) 10.0 % (.) 12/27/24 05:21 Eos % (Auto) 11.8 % (.) 12/27/24 05:21 Baso % (Auto) 0.5 % (.) 12/27/24 05:21 Nucleat RBC Rel Count 0.2 /100 WBC (0-0.5) 12/27/24 05:21 Neut # (Auto) 0.6 x10E3/uL (1.8-7.7) L 12/27/24 05:21 Lymph # (Auto) 0.8 x10E3/uL (1.00-4.8) L 12/27/24 05:21 Craig # (Auto) 0.2 x10E3/uL (0.0-0.8) 12/27/24 05:21 [...] NC, 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 Work Phone: 1(332) 929-271209-16-2025 Radiology Diagnostic study noteMad[facility]09-08-2025 History of Present illness Narrative* Mack [...] 01/14/2024 Anemia Anxiety Arthritis Bipolar 1 disorder ([facility]) 01/14/2024 Bipolar disorder with depression ([facility]) 01/14/2024 Breast cancer screening by mammogram 01/14/2024 Chronic depression 01/14/2024 Chronic fatigue 01/14/2024 Chronic hypercapnic respiratory failure ([facility]) 01/14/2024 Chronic kidney disease, stage 3 unspecified ([facility] [place] COPD (chronic obstructive pulmonary disease) ([facility]) Debility 01/14/2024 Degenerative joint disease of cervical and lumbar spine 01/14/2024 Dehydration 01/14/2024 Diabetes ([facility]) 01/14/2024 Diabetic neuropathy ([facility]) 07/15/2023 Diarrhea 01/14/2024 Difficulty walking Disorder of sacroiliac joint 01/14/2024 DM type 2 (diabetes mellitus, type 2) ([facility]) Elevated troponin 01/14/2024 Epigastric pain 01/14/2024 Gait instability 01/14/2024 GERD (gastroesophageal reflux disease) Hallucinations, visual 01/14/2024 Hemosiderin pigmentation of skin 01/14/2024 Hypertension Hypomagnesemia 01/14/2024 Hypothyroidism 01/14/2024 Iron deficiency anemia 01/14/2024 Irritable bowel disease 01/14/2024 Kidney disease 01/14/2024 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 ([facility]) 01/14/2024 Lumbar degenerative disc disease 01/14/2024 Lumbar spondylolysis Lumbosacral spondylosis without myelopathy 01/14/2024 Major depressive disorder with psychotic features ([facility]) 01/14/2024 Mixed hyperlipidemia Monoclonal gammopathy 01/14/2024 Morbid obesity with BMI of 40.0-44.9, adult ([facility]) Morbid obesity with BMI of 45.0-49.9, adult ([facility]) 01/14/2024 Multiple falls 01/14/2024 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) ([facility]) 01/14/2024 OM (onychomycosis) On home oxygen therapy 01/14/2024 TANYA (obstructive sleep apnea) Osteoarthritis of back Other chronic pain 01/14/2024 Peripheral edema 01/14/2024 Pruritic erythematous rash 01/14/2024 Rhabdomyolysis 01/14/2024 Stage 3 chronic kidney disease ([facility]) 01/14/2024 Symptomatic varicose veins of both lower extremities 01/14/2024 Thyroid disease 01/14/2024 Type 2 diabetes mellitus without complications ([facility]) 01/14/2024 Ulcer of left lower leg ([facility]) 01/14/2024 UTI (urinary tract infection) 01/14/2024 Venous reflux 01/14/2024 Venous stasis ulcer limited to breakdown of skin without varicose veins ([facility]) 01/14/2024 Vitamin D deficiency, unspecified Medications: Current [...] Needle Micro U/F 32G X 6 MM [facility], , Disp: , Rfl: budesonide-formoterol (Symbicort) 160-4.5 [...] misc, , Disp: , Rfl: Continuous Glucose Candle Wrapping Machine Operator (FreeStyle Alfredo 3 Belen) device, USE DIRECTED, Disp: 1 each, Rfl: [...] SUGARS., Disp: 200 each, Rfl: 1 HYDROcodone-acetaminophen ([place]) 5-325 MG tablet, , Disp: , Rfl: [...] and negative PT pedal pulses NEURO: 5.07 [place] Rosi monofilament test diminished to digits and [...] refill. Mack Tsai DPM documented in this [facility]08-18-2025 Telephone encounter Note* Telephone Encounter - Jj Morgan - 11/28/2024 1:29 PM EDT Anthony from [employer] called about addies' sensors. Please call [phone]. Thank you! [facility] CenterBabwmhlqpm79-92-2184 Miscellaneous Notes* Telephone Encounter - Jj Morgan - 11/28/2024 1:29 PM EDT Anthony from [employer] called about addies' sensors. Please call [phone]. Thank you! documented in this [facility]08-12-2025 Evaluation note* Diagnosis Onset Date Resolution [...] 2024 9:59amDiabetesinactiveOctober 2024 9:59amMorbid obesityinactiveOctober 2024 9:59am [facility] Work Phone: 1(675) 999-217408-12-2025 Evaluation note* Diagnosis Onset Date Resolution Status [...] mellitus with diabetic neuropathy, unspecifiedacuteOctober 2024 8:14am [facility] Work Phone: 1(350) 585-252408-12-2025 Evaluation note* Diagnosis Onset Date Resolution Status [...] 2024 11:11amVenous stasis dermatitis of both lower extremitiesresolvedAuartesia general hospitalt 2024 11:11amCancer related painacuteSeptember 2024 8:30amEncounter for [...] 10:14amDiabetesinactiveNov2024 10:14amMorbid obesityinactive February 13, 2025 10:14am [facility] Work Phone: 1(325) 980-780808-12-2025 Evaluation note* Diagnosis Onset Date Resolution Status [...] 2024 1:17pmThrombocytopeniaacute February 20, 2025 1:17pmBipolar 1 disorderchronicSelect Specialty Hospital [facility]20[facility] 1:17pm COPD (chronic obstructive pulmonary disease)chronicSelect [facility]ty Hospital [facility]2024 1:17pm Diabetic neuropathy associated with diabetes mellitus due to underlyingchronic February 20, 2025 1:17pmHypertensionchronicSelect Specialty Hospital [facility]2024 1:17pmCKD (chronic kidney disease) stage 3, GFR 30-59 ml/minresolvedB[facility] 2024 1:17pmMorbid obesity with BMI of 45.0-49.9, adultresPenn [facility] 2024 1:17pmPruritic erythematous rashresBer[facility]2024 1:17pmVenous stasis dermatitis of both lower extremitiesresPenn State Health [facility] 2024 1:17pmCOPD (chronic obstructive pulmonary disease)[facility]2024 1:18pm Degenerative joint disease of cervical and lumbar spinechronPike [facility]2024 1: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)[facility]2024 1:18pmCKD (chronic kidney disease) stage 3, GFR 30-59 ml/minresPenn State Health [facility] 2024 1:18pmIron deficiency anemiaresPenn State Health [facility] 2024 1:18pmBipolar disorder with depressioninactive February 20, 2025 1:18pmDiabetesinactiveSelect Specialty [facility]2024 1:18pmMorbid obesityinactiveSelect Specialty Hospital [facility]2024 1:18pm [facility] Work Phone: 1(464) 402-494708-04-2025 History of Present illness Narrative* Jeannie Aguilar [...] blood sugar levels. She is currently on Lpdauh66 units and NovoLog 40 units with every [...] New patient sent from Pain Management in [place], Dr. Brenden Groves, for uncontrolled diabetes. A1c [...] Needle Micro U/F 32G X 6 MM [facility] budesonide-formoterol (Symbicort) 160-4.5 MCG/ACT inhaler 2 puffs, [...] Blood Gluc Sensor (FreeStyle Alfredo 2 Sensor) [facility] Continuous Glucose Candle Wrapping Machine Operator (FreeStyle Alfredo 3 Belen) device USE DIRECTED Continuous Glucose Sensor (FreeStyle [...] tablet gabapentin (Neurontin) 600 MG tablet HYDROcodone-acetaminophen ([place]) 5-325 MG tablet hydrOXYzine HCl (Atarax) 10 [...] 01/14/2024 Anemia Anxiety Arthritis Bipolar 1 disorder ([facility]) 01/14/2024 Bipolar disorder with depression ([facility]) 01/14/2024 Breast cancer screening by mammogram 01/14/2024 Chronic depression 01/14/2024 Chronic fatigue 01/14/2024 Chronic hypercapnic respiratory failure ([facility]) 01/14/2024 Chronic kidney disease, stage 3 unspecified ([facility] [place] COPD (chronic obstructive pulmonary disease) ([facility]) Debility 01/14/2024 Degenerative joint disease of cervical and lumbar spine 01/14/2024 Dehydration 01/14/2024 Diabetes ([facility]) 01/14/2024 Diabetic neuropathy ([facility]) 07/15/2023 Diarrhea 01/14/2024 Difficulty walking Disorder of sacroiliac joint 01/14/2024 DM type 2 (diabetes mellitus, type 2) ([facility]) Elevated troponin 01/14/2024 Epigastric pain 01/14/2024 Gait instability 01/14/2024 GERD (gastroesophageal reflux disease) Hallucinations, visual 01/14/2024 Hemosiderin pigmentation of skin 01/14/2024 Hypertension Hypomagnesemia 01/14/2024 Hypothyroidism 01/14/2024 Iron deficiency anemia 01/14/2024 Irritable bowel disease 01/14/2024 Kidney disease 01/14/2024 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 ([facility]) 01/14/2024 Lumbar degenerative disc disease 01/14/2024 Lumbar spondylolysis Lumbosacral spondylosis without myelopathy 01/14/2024 Major depressive disorder with psychotic features ([facility]) 01/14/2024 Mixed hyperlipidemia Monoclonal gammopathy 01/14/2024 Morbid obesity with BMI of 40.0-44.9, adult ([facility] [place]) Morbid obesity with BMI of 45.0-49.9, adult ([facility] [place]) 01/14/2024 Multiple falls 01/14/2024 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) ([facility]) 01/14/2024 OM (onychomycosis) On home oxygen therapy [...] hyperglycemia, with long-term current use of insulin ([facility]) - POCT glucose manually resulted - POCT [...] dietary consultation Stage 3b chronic kidney disease ([facility]) Assessment & Plan 1. Diabetes Mellitus: Not [...] 3 months (around 02/14/2025). documented in this encounterHedrick Medical CenterHjkvcdnbke80-79-2082 Evaluation note* Diagnosis Onset Date Resolution Status [...] of iron deficiency anemiaacuteAugust 2024 11:23amIgG myelomaacute [place] 2024 11:23amPruritic erythematous rashacuteAugust 2024 11:23amBipolar 1 [...] visit after completion of treatmentnoneactiveOctober 2024 11:13am [facility] Work Phone: 1(106) 892-331906-26-2025 Evaluation note* Diagnosis Onset Date Resolution Status [...] of iron deficiency anemiaacuteAugust 2024 11:23amIgG myelomaacute [place] 2024 11:23amPruritic erythematous rashacuteAugust 2024 11:23amBipolar 1 [...] 2024 9:44amDiabetesinactiveAugust 2024 9:44amMorbid obesityinactiveAugust 2024 9:44am [facility] Work Phone: 1(982) 869-372806-26-2025 Evaluation note* Diagnosis Onset Date Resolution Status [...] 2024 8:58amDiabetesinactiveSeptember 2024 8:58amMorbid obesityinactiveSeptember 2024 8:58am [facility] Work Phone: 1(627) 166-127606-26-2025 Evaluation note* Diagnosis Onset Date Resolution Status [...] 2024 9:59amDiabetesinactiveSeptember 2024 9:59amMorbid obesity inactiveSept2024 9:59am [facility] Work Phone: 1(406) 652-201706-26-2025 Evaluation note* Diagnosis Onset Date Resolution Status [...] of iron deficiency anemiaacuteAugust 2024 11:23amIgG myelomaacute [place] 2024 11:23amPruritic erythematous rashacuteAugust 2024 11:23amBipolar 1 [...] 2024 8:56amOSA (obstructive sleep apnea)chronicSeptember 2024 8:56am [facility] Work Phone: 1(193) 556-581206-26-2025 Evaluation note* Diagnosis Onset Date Resolution Status [...] disease)chronicSept2024 8:56amHypertensionchronicSept2024 8:56amOSA (obstructive sleep apnea)chronicSept2024 8:56am [facility] Work Phone: 1(566) 828-300206-20-2025 History of Present illness Narrative* Mack Tsai, [...] Chronic fatigue 01/14/2024 Chronic hypercapnic respiratory failure ([facility]) 01/14/2024 Chronic kidney disease, stage 3 unspecified ([facility] [place] COPD (chronic obstructive pulmonary disease) ([facility]) Debility 01/14/2024 Degenerative joint disease of cervical and lumbar spine 01/14/2024 Dehydration 01/14/2024 Diabetes ([facility]) 01/14/2024 Diabetic neuropathy ([facility]) 07/15/2023 Diarrhea 01/14/2024 Difficulty walking Disorder of sacroiliac joint 01/14/2024 DM type 2 (diabetes mellitus, type 2) ([facility]) Elevated troponin 01/14/2024 Epigastric pain 01/14/2024 Gait instability 01/14/2024 GERD (gastroesophageal reflux disease) Hallucinations, visual 01/14/2024 Hemosiderin pigmentation of skin 01/14/2024 Hypertension Hypomagnesemia 01/14/2024 Hypothyroidism 01/14/2024 Iron deficiency anemia 01/14/2024 Irritable bowel disease 01/14/2024 Kidney disease 01/14/2024 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 ([facility]) 01/14/2024 Lumbar degenerative disc disease 01/14/2024 Lumbar spondylolysis Lumbosacral spondylosis without myelopathy 01/14/2024 Major depressive disorder with psychotic features ([facility]) 01/14/2024 Mixed hyperlipidemia Monoclonal gammopathy 01/14/2024 Morbid obesity with BMI of 40.0-44.9, adult ([facility] [place] Morbid obesity with BMI of 45.0-49.9, adult ([facility] [place]) 01/14/2024 Multiple falls 01/14/2024 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) ([facility]) 01/14/2024 OM (onychomycosis) On home oxygen therapy 01/14/2024 TANYA (obstructive sleep apnea) Osteoarthritis of back Other chronic pain 01/14/2024 Peripheral edema 01/14/2024 Pruritic erythematous rash 01/14/2024 Rhabdomyolysis 01/14/2024 Stage 3 chronic kidney disease ([facility]) 01/14/2024 Symptomatic varicose veins of both lower extremities 01/14/2024 Thyroid disease 01/14/2024 Type 2 diabetes mellitus without complications ([facility]) 01/14/2024 Ulcer of left lower leg ([facility]) 01/14/2024 UTI (urinary tract infection) 01/14/2024 Venous [...] Needle Micro U/F 32G X 6 MM [facility], , Disp: , Rfl: budesonide-formoterol (Symbicort) 160-4.5 [...] Blood Gluc Sensor (FreeStyle Alfredo 2 Sensor) [facility], , Disp: , Rfl: Continuous Glucose Candle Wrapping Machine Operator (FreeStyle Alfredo 3 Belen) device, USE DIRECTED, Disp: 1 each, Rfl: 0 Continuous Glucose Sensor (FreeStyle Alfredo 3 Plus Sensor) [facility], 1 Bar Every 15 Days, Disp: 6 [...] MG tablet, , Disp: , Rfl: HYDROcodone-acetaminophen ([place]) 5-325 MG tablet, , Disp: , Rfl: [...] and negative PT pedal pulses NEURO: 5.07 [place] Rosi monofilament test diminished to digits and forefoot bilaterally 125Hz tuning fork diminished to 1st MPJ bilaterally ORTHO: Positive pain on palpation to toenails of the left 1,2,3,4,5 toes and right 1,2,3,4,5 toes Flexion deformity 2 through 5 digits right foot ASSESSMENT 1. Diabetes mellitus due to underlying condition with diabetic polyneuropathy, with long-term current use of insulin ([facility]) 2. Pain due to onychomycosis of toenails [...] refill. Mack Tsai DPM documented in this encounterHedrick Medical [id number] Evaluation note* Diagnosis Onset Date Resolution Status [...] both lower extremitiesresolved November 22, 2024 11:23am [facility] Work Phone: 1(903) 941-700005-15-2025 History of Present illness Narrative* Svetlana Garcia, [...] Needle Micro U/F 32G X 6 MM [facility], , Disp: , Rfl: budesonide-formoterol (Symbicort) 160-4.5 [...] misc, , Disp: , Rfl: Continuous Glucose Candle Wrapping Machine Operator (FreeStyle Alfredo 3 Belen) device, 1 Device Daily, Disp: 1 each, [...] MG tablet, , Disp: , Rfl: HYDROcodone-acetaminophen ([place]) 5-325 MG tablet, , Disp: , Rfl: [...] metabolic encephalopathy 01/14/2024 PETER (acute kidney injury) ([facility]) 01/14/2024 Anemia Anxiety Arthritis Bipolar 1 disorder ([facility]) 01/14/2024 Bipolar disorder with depression ([facility]) 01/14/2024 Breast cancer screening by mammogram 01/14/2024 Chronic depression ([facility]) 01/14/2024 Chronic fatigue 01/14/2024 Chronic hypercapnic respiratory failure ([facility]) 01/14/2024 Chronic kidney disease, stage 3 unspecified (HCC) ([facility]) COPD (chronic obstructive pulmonary disease) ([facility]) Debility 01/14/2024 Degenerative joint disease of cervical and lumbar spine 01/14/2024 Dehydration 01/14/2024 Diabetes ([facility]) 01/14/2024 Diabetic neuropathy ([facility]) 07/15/2023 Diarrhea 01/14/2024 Difficulty walking Disorder of sacroiliac joint 01/14/2024 DM type 2 (diabetes mellitus, type 2) ([facility]) Elevated troponin 01/14/2024 Epigastric pain 01/14/2024 Gait instability 01/14/2024 GERD (gastroesophageal reflux disease) Hallucinations, visual 01/14/2024 Hemosiderin pigmentation of skin 01/14/2024 Hypertension ([facility]) Hypomagnesemia 01/14/2024 Hypothyroidism ([facility]) 01/14/2024 Iron deficiency anemia 01/14/2024 Irritable bowel disease 01/14/2024 Kidney disease 01/14/2024 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 ([facility]) 01/14/2024 Lumbar degenerative disc disease 01/14/2024 Lumbar spondylolysis Lumbosacral spondylosis without myelopathy 01/14/2024 Major depressive disorder with psychotic features ([facility]) 01/14/2024 Mixed hyperlipidemia ([facility]) Monoclonal gammopathy 01/14/2024 Morbid obesity with BMI of 40.0-44.9, adult ([facility]) Morbid obesity with BMI of 45.0-49.9, adult ([facility]) 01/14/2024 Multiple falls 01/14/2024 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) 01/14/2024 OM (onychomycosis) On home oxygen therapy 01/14/2024 TANYA (obstructive sleep apnea) Osteoarthritis of back Other chronic pain 01/14/2024 Peripheral edema 01/14/2024 Pruritic erythematous rash 01/14/2024 Rhabdomyolysis 01/14/2024 Stage 3 chronic kidney disease (HCC) ([facility]) 01/14/2024 Symptomatic varicose veins of both lower extremities 01/14/2024 Thyroid disease ([facility]) 01/14/2024 Type 2 diabetes mellitus without complications 01/14/2024 Ulcer of left lower leg ([facility]) 01/14/2024 UTI (urinary tract infection) 01/14/2024 Venous reflux 01/14/2024 Venous stasis ulcer limited to breakdown of skin without varicose veins ([facility]) 01/14/2024 Vitamin D deficiency, unspecified Social History: [...] Chronic obstructive pulmonary disease, unspecified COPD type ([facility]) Obstructive sleep apnea syndrome COPD -- she [...] TANYA. Svetlana Garcia DO documented in this encounterHedrick Medical [id number] History of Present illness Narrative* Jeannie Aguilar [...] Continuous glucose monitoring is performed using the [employer] Alfredo system, although she reports difficulty in obtaining readings from the device. Results Labs: A1c is 10.9%, improved from previous value of 13%. Blood sugar is 186 mg/dL. Continuous Glucose Monitoring (CGM): - CGM System: [employer] Alfredo - Mean glucose: 214 mg/dL over [...] New patient sent from Pain Management in [place], Dr. Brenden Groves, for uncontrolled diabetes. A1c [...] Blood Gluc Sensor (FreeStyle Alfredo 2 Sensor) [facility] Continuous Glucose Candle Wrapping Machine Operator (FreeStyle Alfredo 3 Belen) device 1 Device, Does not apply, Daily Continuous Glucose Sensor (FreeStyle Alfredo 3 Plus Sensor) [facility] 1 Bar, Does not apply, Every 15 [...] Do not crush, chew, or split. HYDROcodone-acetaminophen ([place]) 5-325 MG tablet hydrOXYzine HCl (Atarax) 10 [...] metabolic encephalopathy 01/14/2024 PETER (acute kidney injury) ([facility]) 01/14/2024 Anemia Anxiety Arthritis Bipolar 1 disorder ([facility]) 01/14/2024 Bipolar disorder with depression ([facility]) 01/14/2024 Breast cancer screening by mammogram 01/14/2024 Chronic depression ([facility]) 01/14/2024 Chronic fatigue 01/14/2024 Chronic hypercapnic respiratory failure ([facility]) 01/14/2024 Chronic kidney disease, stage 3 unspecified ([facility]) ([facility]) COPD (chronic obstructive pulmonary disease) ([facility]) Debility 01/14/2024 Degenerative joint disease of cervical and lumbar spine 01/14/2024 Dehydration 01/14/2024 Diabetes ([facility]) 01/14/2024 Diabetic neuropathy ([facility]) 07/15/2023 Diarrhea 01/14/2024 Difficulty walking Disorder of sacroiliac joint 01/14/2024 DM type 2 (diabetes mellitus, type 2) ([facility]) Elevated troponin 01/14/2024 Epigastric pain 01/14/2024 Gait instability 01/14/2024 GERD (gastroesophageal reflux disease) Hallucinations, visual 01/14/2024 Hemosiderin pigmentation of skin 01/14/2024 Hypertension ([facility]) Hypomagnesemia 01/14/2024 Hypothyroidism ([facility]) 01/14/2024 Iron deficiency anemia 01/14/2024 Irritable bowel disease 01/14/2024 Kidney disease 01/14/2024 [facility] (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 ([facility]) 01/14/2024 Lumbar degenerative disc disease 01/14/2024 Lumbar spondylolysis Lumbosacral spondylosis without myelopathy 01/14/2024 Major depressive disorder with psychotic features ([facility]) 01/14/2024 Mixed hyperlipidemia ([facility]) Monoclonal gammopathy 01/14/2024 Morbid obesity with BMI of 40.0-44.9, adult ([facility]) Morbid obesity with BMI of 45.0-49.9, adult ([facility]) 01/14/2024 Multiple falls 01/14/2024 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) ([facility]) 01/14/2024 OM (onychomycosis) On home oxygen therapy 01/14/2024 TANYA (obstructive sleep apnea) Osteoarthritis of back Other chronic pain 01/14/2024 Peripheral edema 01/14/2024 Pruritic erythematous rash 01/14/2024 Rhabdomyolysis 01/14/2024 Stage 3 chronic kidney disease (HCC) ([facility]) 01/14/2024 Symptomatic varicose veins of both lower extremities 01/14/2024 Thyroid disease ([facility]) 01/14/2024 Type 2 diabetes mellitus without complications ([facility]) 01/14/2024 Ulcer of left lower leg ([facility]) 01/14/2024 UTI (urinary tract infection) 01/14/2024 Venous reflux 01/14/2024 Venous stasis ulcer limited to breakdown of skin without varicose veins ([facility]) 01/14/2024 Vitamin D deficiency, unspecified Past Surgical [...] hyperglycemia, with long-term current use of insulin ([facility]) - POCT glucose manually resulted - POCT glycosylated hemoglobin (Hb A1C) docked device - Continuous Glucose Sensor (FreeStyle Alfredo 3 Plus Sensor) misc; 1 Bar Every 15 Days - Continuous Glucose Candle Wrapping Machine Operator (FreeStyle Alfredo 3 Belen) device; 1 Device Daily - semaglutide (Ozempic, 0.25 or 0.5 MG/DOSE,) 2 MG/1.5ML solution pen-injector; Inject 0.5 mg underthe skin 1 (one) time per week Vitamin D deficiency Primary hypertension (CMS/HCC) Hyperlipemia, mixed ([facility]) Insulin long-term use ([facility]) Encounter for dietary consultation Stage 3b chronic kidney disease (HCC) ([facility]) Class 3 severe obesity due to excess calories with serious comorbidity and body mass index (BMI) of45.0 to 49.9 in adult Type 2 diabetes mellitus with hyperglycemia ([facility]) - dapagliflozin (Farxiga) 10 MG; Take 1 [...] meal, and Farxiga as usual; ordered new [employer] Alfredo system 3 including meter and sensor. Follow up in about 3 months (around 11/22/2024). documented in this encounterHedrick Medical [id number] Evaluation note* Diagnosis Onset Date Resolution Status Admit Date BMI 40.0-44.9, adult acuteApril 2024 8:21amMorbid (severe) obesity due to excess caloriesacute August 08, 2024 8:21amStage 3b chronic kidney diseaseacuteApril 2024 8:21amSwelling of hand jointacuteApril 2024 8:21amType 2 diabetes mellitus with diabetic neuropathy, unspecifiedacuteApril 2024 8:21amBipolar 1 disorderchronicApril 2024 8:21amCOPD (chronic obstructive pulmonary disease)chronicApril 2024 8:21am [facility] Work Phone: 1(791) 793-652504-28-2025 Evaluation note* Diagnosis Onset Date Resolution Status [...] 2024 11:08amVenous stasis dermatitis of both lower extremitiesresolved[facility], [facility] 20[facility] 11:08am [facility] Work Phone: 1(777) 702-697804-28-2025 Evaluation note* Diagnosis Onset Date Resolution Status [...] October 27, 2024 1:46pmMorbid obesityinactiveJuly 2024 1:46pm [facility] Work Phone: 1([phone]) 754-972404-28-2025 Evaluation note* Diagnosis Onset Date Resolution Status [...] dermatitis of both lower extremitiesresolvedJuly 2024 1:46pm [facility] Work Phone: 1([phone]) 448-243302-12-2025 History of Present illness Narrative* Jeannie Aguilar [...] New patient sent from Pain Management in [place], Dr. Brenden Groves, for uncontrolled diabetes. A1c [...] Do not crush, chew, or split. HYDROcodone-acetaminophen ([place]) 5-325 MG tablet TAKE 1 TABLET BY [...] metabolic encephalopathy 01/14/2024 PETER (acute kidney injury) ([facility]) 01/14/2024 Anemia Anxiety Arthritis Bipolar 1 disorder ([facility]) 01/14/2024 Bipolar disorder with depression ([facility]) 01/14/2024 Breast cancer screening by mammogram 01/14/2024 Chronic depression ([facility]) 01/14/2024 Chronic fatigue 01/14/2024 Chronic hypercapnic respiratory failure ([facility]) 01/14/2024 Chronic kidney disease, stage 3 unspecified (HCC) ([facility]) COPD (chronic obstructive pulmonary disease) ([facility]) Debility 01/14/2024 Degenerative joint disease of cervical and lumbar spine 01/14/2024 Dehydration 01/14/2024 Diabetes ([facility]) 01/14/2024 Diabetic neuropathy ([facility]) 07/15/2023 Diarrhea 01/14/2024 Difficulty walking Disorder of sacroiliac joint 01/14/2024 DM type 2 (diabetes mellitus, type 2) ([facility]) Elevated troponin 01/14/2024 Epigastric pain 01/14/2024 Gait instability 01/14/2024 GERD (gastroesophageal reflux disease) Hallucinations, visual 01/14/2024 Hemosiderin pigmentation of skin 01/14/2024 Hypertension ([facility]) Hypomagnesemia 01/14/2024 Hypothyroidism ([facility]) 01/14/2024 Iron deficiency anemia 01/14/2024 Irritable bowel disease 01/14/2024 Kidney disease 01/14/2024 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 ([facility]) 01/14/2024 Lumbar degenerative disc disease 01/14/2024 Lumbar spondylolysis Lumbosacral spondylosis without myelopathy 01/14/2024 Major depressive disorder with psychotic features ([facility]) 01/14/2024 Mixed hyperlipidemia ([facility]) Monoclonal gammopathy 01/14/2024 Morbid obesity with BMI of 40.0-44.9, adult ([facility]) Morbid obesity with BMI of 45.0-49.9, adult ([facility]) 01/14/2024 Multiple falls 01/14/2024 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) ([facility]) 01/14/2024 OM (onychomycosis) On home oxygen therapy 01/14/2024 TANYA (obstructive sleep apnea) Osteoarthritis of back Other chronic pain 01/14/2024 Peripheral edema 01/14/2024 Pruritic erythematous rash 01/14/2024 Rhabdomyolysis 01/14/2024 Stage 3 chronic kidney disease (HCC) ([facility]) 01/14/2024 Symptomatic varicose veins of both lower extremities 01/14/2024 Thyroid disease ([facility]) 01/14/2024 Type 2 diabetes mellitus without complications ([facility]) 01/14/2024 Ulcer of left lower leg ([facility]) 01/14/2024 UTI (urinary tract infection) 01/14/2024 Venous reflux 01/14/2024 Venous stasis ulcer limited to breakdown of skin without varicose veins ([facility]) 01/14/2024 Vitamin D deficiency, unspecified Past Surgical [...] hyperglycemia, with long-term current use of insulin ([facility]) - POCT glucose manually resulted - POCT [...] sent all Vitamin D deficiency Primary hypertension ([facility]) Hyperlipemia, mixed ([facility]) Insulin long-term use ([facility]) Encounter for dietary consultation Diet and exercise reviewed with the patient Stage 3b chronic kidney disease (HCC) ([facility]) Class 3 severe obesity due to excess calories with serious comorbidity and body mass index (BMI) of45.0 to 49.9 in adult ([facility]) Type 2 diabetes mellitus with hyperglycemia ([facility]) - dapagliflozin (Farxiga) 10 MG; Take 1 tablet (10 mg) by mouth Daily Follow up in about 3 months (around 08/22/2024). documented in this encounterHedrick Medical [id number] History of Present illness Narrative* Mack Tsai, DPM - 04/15/2024 8:30 AM EST Patient: Kelsea Rooj Tam : 1960 PCP: Giovanni Moreno MD [...] metabolic encephalopathy 01/14/2024 PETER (acute kidney injury) ([facility]) 01/14/2024 Anemia Anxiety Arthritis Bipolar 1 disorder ([facility]) 01/14/2024 Bipolar disorder with depression ([facility]) 01/14/2024 Breast cancer screening by mammogram 01/14/2024 Chronic depression ([facility]) 01/14/2024 Chronic fatigue 01/14/2024 Chronic hypercapnic respiratory failure ([facility]) 01/14/2024 Chronic kidney disease, stage 3 unspecified ([facility]) ([facility]) COPD (chronic obstructive pulmonary disease) ([facility]) Debility 01/14/2024 Degenerative joint disease of cervical and lumbar spine 01/14/2024 Dehydration 01/14/2024 Diabetes ([facility]) 01/14/2024 Diabetic neuropathy ([facility]) 07/15/2023 Diarrhea 01/14/2024 Difficulty walking Disorder of sacroiliac joint 01/14/2024 DM type 2 (diabetes mellitus, type 2) ([facility]) Elevated troponin 01/14/2024 Epigastric pain 01/14/2024 Gait instability 01/14/2024 GERD (gastroesophageal reflux disease) Hallucinations, visual 01/14/2024 Hemosiderin pigmentation of skin 01/14/2024 Hypertension ([facility]) Hypomagnesemia 01/14/2024 Hypothyroidism ([facility]) 01/14/2024 Iron deficiency anemia 01/14/2024 Irritable bowel disease 01/14/2024 Kidney disease 01/14/2024 [facility] (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 ([facility]) 01/14/2024 Lumbar degenerative disc disease 01/14/2024 Lumbar spondylolysis Lumbosacral spondylosis without myelopathy 01/14/2024 Major depressive disorder with psychotic features ([facility]) 01/14/2024 Mixed hyperlipidemia ([facility]) Monoclonal gammopathy 01/14/2024 Morbid obesity with BMI of 40.0-44.9, adult ([facility]) Morbid obesity with BMI of 45.0-49.9, adult ([facility]) 01/14/2024 Multiple falls 01/14/2024 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) ([facility]) 01/14/2024 OM (onychomycosis) On home oxygen therapy 01/14/2024 TANYA (obstructive sleep apnea) Osteoarthritis of back Other chronic pain 01/14/2024 Peripheral edema 01/14/2024 Pruritic erythematous rash 01/14/2024 Rhabdomyolysis 01/14/2024 Stage 3 chronic kidney disease (HCC) ([facility]) 01/14/2024 Symptomatic varicose veins of both lower extremities 01/14/2024 Thyroid disease ([facility]) 01/14/2024 Type 2 diabetes mellitus without complications ([facility]) 01/14/2024 Ulcer of left lower leg ([facility]) 01/14/2024 UTI (urinary tract infection) 01/14/2024 Venous reflux 01/14/2024 Venous stasis ulcer limited to breakdown of skin without varicose veins ([facility]) 01/14/2024 Vitamin D deficiency, unspecified Medications: Current [...] Blood Gluc Sensor (FreeStyle Alfredo 2 Sensor) [facility], USE DIRECTED EVERY 14 DAYS, Disp: , [...] split.., Disp: 60 tablet, Rfl: 11 HYDROcodone-acetaminophen ([place]) 5-325 MG tablet, TAKE 1 TABLET BY [...] and negative PT pedal pulses NEURO: 5.07 [place] Rosi monofilament test diminished to digits and forefoot bilaterally 125Hz tuning fork diminished to 1st MPJ bilaterally ORTHO: Positive pain on palpation to nails 1 through 10 Flexion deformity 2 through 5 digits right foot ASSESSMENT 1. Diabetes mellitus due to underlying condition with diabetic polyneuropathy, with long-term current use of insulin ([facility]) 2. Pain due to onychomycosis of toenails [...] or drainage to feet. Patient to consider [id number] treatments for medication or use of urea cream and prescription today was offered for Lac-Hydrin cream. Mack Tsai DPM documented in this encounterHedrick Medical [id number] Evaluation note* Diagnosis Onset Date Resolution Status [...] 2024 9:57amDiabetesinactiveNov2023 9:57amMorbid obesityinactiveFebruary 24, 2024 9:57am [facility] Work Phone: 1(445) 493-570010-29-2024 Evaluation note* Diagnosis Onset Date Resolution Status Admit Date Hypothyroidism acuteOctober 2023 8:19amTinea corporisacuteOctober 2023 8:19amType 2 diabetes mellitus without complicationsacuteOctober 2023 8:19amEncounter for initial annual wellness visit in Medicare patientnoneactiveOcth[facility] 20[facility] 8:19amCKD (chronic kidney disease) stage 3, GFR 30-59 ml/minchronicMarch 02, 2024 1:04pmCOPD (chronic obstructive pulmonary disease)chronicMarch 02, 2024 1:04pmDegenerative joint disease of cervical and lumbar spinechronic March 02, 2024 1: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)chronicNov2023 1:04pmIron deficiency anemiaresolvedNov2023 1:04pmBipolar disorder with depressioninactive March 02, 2024 1:04pmDiabetesinactiveNov2023 1:04pmMorbid obesityinactiveSelect [facility] 1:04pm [facility] Work Phone: 1([phone]) 603-460210-29-2024 Evaluation note* Diagnosis Onset Date Resolution Status Admit Date Hypothyroidism acuteOctober 2023 8:19amTinea corporisacuteOctober 2023 8:19amType 2 diabetes mellitus without complicationsacuteOctober 2023 8:19amEncounter for initial annual wellness visit in Medicare patientnoneactiveOctober 2023 8:19amHistory of iron deficiency anemiaacuteSelect [facility] 1:03pm Morbid obesity with BMI of 45.0-49.9, adultacuteNov2023 1:03pm Pruritic erythematous rashacuteNov2023 1:03pmBipolar 1 disorder chronicSelect Specialty [facility]20[facility] 1:03pmCKD (chronic kidney disease) stage 3, GFR 30-59 ml/minchronicSelect Specialty [facility]20[facility] 1:03pmCOPD (chronic obstructive pulmonary disease)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2023 1:03pmVenous stasis dermatitis of both lower extremitiesresolvedNov2023 1:03pmCKD (chronic kidney disease) stage 3, GFR 30-59 ml/minchronicSelect Specialty [facility] [place]2023 1:04pmCOPD (chronic obstructive pulmonary disease)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)chronicMarch 02, 2024 1:04pmIron deficiency anemiaresolvedMarch 02, 2024 1:04pmBipolar disorder with depressioninactive March 02, 2024 1:04pmDiabetesinactiveMarch 02, 2024 1:04pmMorbid obesityinactiveMarch 02, 2024 1:04pmTrochanteric bursitis of left hipacute March 07, 2024 11:07amVenous stasis dermatitis of both lower extremities resolvedMarch 07, 2024 11:07am [facility] Work Phone: [phone]) 808-552210-22-2024 History of Present illness Narrative* Mack Tsai [...] metabolic encephalopathy 01/14/2024 PETER (acute kidney injury) ([facility]) 01/14/2024 Anemia Anxiety Arthritis Bipolar 1 disorder ([facility]/HCC) 01/14/2024 Bipolar disorder with depression ([facility]) 01/14/2024 Breast cancer screening by mammogram 01/14/2024 Chronic depression ([facility]) 01/14/2024 Chronic fatigue 01/14/2024 Chronic hypercapnic respiratory failure ([facility]) 01/14/2024 Chronic kidney disease, stage 3 unspecified (HCC) ([facility]) COPD (chronic obstructive pulmonary disease) ([facility]) Debility 01/14/2024 Degenerative joint disease of cervical and lumbar spine 01/14/2024 Dehydration 01/14/2024 Diabetes ([facility]) 01/14/2024 Diabetic neuropathy ([facility]) 07/15/2023 Diarrhea 01/14/2024 Difficulty walking Disorder of sacroiliac joint 01/14/2024 DM type 2 (diabetes mellitus, type 2) ([facility]) Elevated troponin 01/14/2024 Epigastric pain 01/14/2024 Gait instability 01/14/2024 GERD (gastroesophageal reflux disease) Hallucinations, visual 01/14/2024 Hemosiderin pigmentation of skin 01/14/2024 Hypertension ([facility]) Hypomagnesemia 01/14/2024 Hypothyroidism ([facility]) 01/14/2024 Iron deficiency anemia 01/14/2024 Irritable bowel disease 01/14/2024 Kidney disease 01/14/2024 [facility] (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 ([facility]) 01/14/2024 Lumbar degenerative disc disease 01/14/2024 Lumbar spondylolysis Lumbosacral spondylosis without myelopathy 01/14/2024 Major depressive disorder with psychotic features ([facility]) 01/14/2024 Mixed hyperlipidemia ([facility]) Monoclonal gammopathy 01/14/2024 Morbid obesity with BMI of 40.0-44.9, adult ([facility]) Morbid obesity with BMI of 45.0-49.9, adult ([facility]) 01/14/2024 Multiple falls 01/14/2024 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) ([facility]) 01/14/2024 OM (onychomycosis) On home oxygen therapy 01/14/2024 TANYA (obstructive sleep apnea) Osteoarthritis of back Other chronic pain 01/14/2024 Peripheral edema 01/14/2024 Pruritic erythematous rash 01/14/2024 Rhabdomyolysis 01/14/2024 Stage 3 chronic kidney disease (HCC) ([facility]) 01/14/2024 Symptomatic varicose veins of both lower extremities 01/14/2024 Thyroid disease ([facility]) 01/14/2024 Type 2 diabetes mellitus without complications ([facility]) 01/14/2024 Ulcer of left lower leg ([facility]) 01/14/2024 UTI (urinary tract infection) 01/14/2024 Venous reflux 01/14/2024 Venous stasis ulcer limited to breakdown of skin without varicose veins ([facility]) 01/14/2024 Vitamin D deficiency, unspecified Medications: Current [...] Needle Micro U/F 32G X 6 MM [facility], USE DIRECTED 4 TIMES A DAY, Disp: [...] Blood Gluc Sensor (FreeStyle Alfredo 2 Sensor) [facility], USE DIRECTED EVERY 14 DAYS, Disp: , [...] split.., Disp: 60 tablet, Rfl: 11 HYDROcodone-acetaminophen ([place]) 5-325 MG tablet, TAKE 1 TABLET BY [...] and negative PT pedal pulses NEURO: 5.07 [place] Rosi monofilament test diminished to digits and forefoot bilaterally 125Hz tuning fork diminished to 1st MPJ bilaterally ORTHO: Positive pain on palpation to nails 1 through 10 Flexion deformity 2 through 5 digits right foot ASSESSMENT 1. Diabetes mellitus due to underlying condition with diabetic polyneuropathy, with long-term current use of insulin ([facility]) 2. Pain due to onychomycosis of toenails [...] gear. Mack Tsai DPM documented in this encounterHedrick Medical [id number] History of Present illness Narrative* Jeannie Aguilar [...] New patient sent from Pain Management in [place], Dr. Brenden Groves, for uncontrolled diabetes. A1c [...] Do not crush, chew, or split. HYDROcodone-acetaminophen ([place]) 5-325 MG tablet TAKE 1 TABLET BY [...] metabolic encephalopathy 01/14/2024 PETER (acute kidney injury) ([facility]) 01/14/2024 Anemia Anxiety Arthritis Bipolar 1 disorder ([facility]) 01/14/2024 Bipolar disorder with depression ([facility]) 01/14/2024 Breast cancer screening by mammogram 01/14/2024 Chronic depression ([facility]) 01/14/2024 Chronic fatigue 01/14/2024 Chronic hypercapnic respiratory failure ([facility]) 01/14/2024 Chronic kidney disease, stage 3 unspecified (HCC) ([facility]) COPD (chronic obstructive pulmonary disease) ([facility]) Debility 01/14/2024 Degenerative joint disease of cervical and lumbar spine 01/14/2024 Dehydration 01/14/2024 Diabetes ([facility]) 01/14/2024 Diabetic neuropathy ([facility]) 07/15/2023 Diarrhea 01/14/2024 Difficulty walking Disorder of sacroiliac joint 01/14/2024 DM type 2 (diabetes mellitus, type 2) ([facility]) Elevated troponin 01/14/2024 Epigastric pain 01/14/2024 Gait instability 01/14/2024 GERD (gastroesophageal reflux disease) Hallucinations, visual 01/14/2024 Hemosiderin pigmentation of skin 01/14/2024 Hypertension ([facility]) Hypomagnesemia 01/14/2024 Hypothyroidism ([facility]) 01/14/2024 Iron deficiency anemia 01/14/2024 Irritable bowel disease 01/14/2024 Kidney disease 01/14/2024 [facility] (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 ([facility]) 01/14/2024 Lumbar degenerative disc disease 01/14/2024 Lumbar spondylolysis Lumbosacral spondylosis without myelopathy 01/14/2024 Major depressive disorder with psychotic features ([facility]) 01/14/2024 Mixed hyperlipidemia ([facility]) Monoclonal gammopathy 01/14/2024 Morbid obesity with BMI of 40.0-44.9, adult ([facility]) Morbid obesity with BMI of 45.0-49.9, adult ([facility]) 01/14/2024 Multiple falls 01/14/2024 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) ([facility]) 01/14/2024 OM (onychomycosis) On home oxygen therapy 01/14/2024 TANYA (obstructive sleep apnea) Osteoarthritis of back Other chronic pain 01/14/2024 Peripheral edema 01/14/2024 Pruritic erythematous rash 01/14/2024 Rhabdomyolysis 01/14/2024 Stage 3 chronic kidney disease (HCC) ([facility]) 01/14/2024 Symptomatic varicose veins of both lower extremities 01/14/2024 Thyroid disease ([facility]) 01/14/2024 Type 2 diabetes mellitus without complications ([facility]) 01/14/2024 Ulcer of left lower leg ([facility]) 01/14/2024 UTI (urinary tract infection) 01/14/2024 Venous reflux 01/14/2024 Venous stasis ulcer limited to breakdown of skin without varicose veins ([facility]) 01/14/2024 Vitamin D deficiency, unspecified Past Surgical [...] hyperglycemia, with long-term current use of insulin ([facility]) - POCT glucose manually resulted - POCT glycosylated hemoglobin (Hb A1C) docked device We will continue with Farxiga 10 mg, Lantus 50 at bedtime, short-acting lipscomb lyumjev 40 units everymeal Vitamin D deficiency Primary hypertension ([facility]) Hyperlipemia, mixed ([facility]) Insulin long-term use ([facility]) Encounter for dietary consultation Diet and exercise reviewed with the patient Stage 3b chronic kidney disease (HCC) ([facility]) Class 3 severe obesity due to excess calories with serious comorbidity and body mass index (BMI) of45.0 to 49.9 in adult ([facility]) Follow up in about 4 months (around 05/22/2024). documented in this encounterHedrick Medical [id number] History of Present illness Narrative* Svetlana Garcia, [...] Blood Gluc Sensor (FreeStyle Alfredo 2 Sensor) [facility], USE DIRECTED EVERY 14 DAYS, Disp: , [...] TABS AT BEDTIME, Disp: , Rfl: HYDROcodone-acetaminophen ([place]) 5-325 MG tablet, TAKE 1 TABLET BY [...] metabolic encephalopathy 01/14/2024 PETER (acute kidney injury) ([facility]) 01/14/2024 Anemia Anxiety Arthritis Bipolar 1 disorder ([facility]) 01/14/2024 Bipolar disorder with depression ([facility]) 01/14/2024 Breast cancer screening by mammogram 01/14/2024 Chronic depression ([facility]) 01/14/2024 Chronic fatigue 01/14/2024 Chronic hypercapnic respiratory failure ([facility]) 01/14/2024 Chronic kidney disease, stage 3 unspecified ([facility]) ([facility]) COPD (chronic obstructive pulmonary disease) ([facility]) Debility 01/14/2024 Degenerative joint disease of cervical and lumbar spine 01/14/2024 Dehydration 01/14/2024 Diabetes ([facility]) 01/14/2024 Diabetic neuropathy ([facility]) 07/15/2023 Diarrhea 01/14/2024 Difficulty walking Disorder of sacroiliac joint 01/14/2024 DM type 2 (diabetes mellitus, type 2) ([facility]) Elevated troponin 01/14/2024 Epigastric pain 01/14/2024 Gait instability 01/14/2024 GERD (gastroesophageal reflux disease) Hallucinations, visual 01/14/2024 Hemosiderin pigmentation of skin 01/14/2024 Hypertension ([facility]) Hypomagnesemia 01/14/2024 Hypothyroidism ([facility]) 01/14/2024 Iron deficiency anemia 01/14/2024 Irritable bowel disease 01/14/2024 Kidney disease 01/14/2024 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 ([facility]) 01/14/2024 Lumbar degenerative disc disease 01/14/2024 Lumbar spondylolysis Lumbosacral spondylosis without myelopathy 01/14/2024 Major depressive disorder with psychotic features ([facility]) 01/14/2024 Mixed hyperlipidemia ([facility]) Monoclonal gammopathy 01/14/2024 Morbid obesity with BMI of 40.0-44.9, adult ([facility]) Morbid obesity with BMI of 45.0-49.9, adult ([facility]) 01/14/2024 Multiple falls 01/14/2024 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) ([facility]) 01/14/2024 OM (onychomycosis) On home oxygen therapy 01/14/2024 TANYA (obstructive sleep apnea) Osteoarthritis of back Other chronic pain 01/14/2024 Peripheral edema 01/14/2024 Pruritic erythematous rash 01/14/2024 Rhabdomyolysis 01/14/2024 Stage 3 chronic kidney disease (HCC) ([facility]) 01/14/2024 Symptomatic varicose veins of both lower extremities 01/14/2024 Thyroid disease ([facility]) 01/14/2024 Type 2 diabetes mellitus without complications ([facility]) 01/14/2024 Ulcer of left lower leg ([facility]) 01/14/2024 UTI (urinary tract infection) 01/14/2024 Venous reflux 01/14/2024 Venous stasis ulcer limited to breakdown of skin without varicose veins ([facility]) 01/14/2024 Vitamin D deficiency, unspecified Social History: [...] Chronic obstructive pulmonary disease, unspecified COPD type ([facility]) - albuterol HFA 90 mcg/act inhaler; Inhale [...] COPD. Svetlana Garcia DO documented in this encounterHedrick Medical [id number] Progress note Author Erica Diehl [facility] April 28, 2023 9:15amNote Date/TimeJanuary 2023 9:09[place] [address] Wound Center Provider Note Signed Patient: Kelsea Turcios MR#: [id number] : 1960 Acct:[id number] Age/Sex: 62 / F Copies to: DO Erica Miranda APRN~ HPI Date of Visit Date of Visit: Date of Service: 04/28/2023 Time of Service: 09:06 Narrative HPI: 04/28/23 Kelsea is a 62-year-old [facility] [...] I would like her to see a transportation superintendent, especially if the venous studies do not [...] for the past year 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 Lives with:: Spouse Appetite Description: Within Normal Limits Smoking Status: Never smoker [facility] Medical History (Updated 04/28/23 @ 09:09 [...] Skin Breakdown Bed Appearance: Beefy Red and Daniel Percent of Wound Bed Granulated/Red: 100 Percent of Devitalized: 0 Length (cm): 0.6 Width (cm): 0.5 Depth (cm): 0.1 CM Sq: 0.300 Surrounding Tissue Appearance: Hyperpigmented Surrounding Tissue Temp: Warm Drainage Amount: Scant Drainage Odor: No Odor Right Lower Leg: Type: Venous Stasis Ulcer Thickness: Skin Breakdown Bed Appearance: Beefy Red and Daniel Percent of Wound Bed Granulated/Red: 100 Percent [...] By: <Electronically signed by LUCI Diehl> 04/28/23914 [facility] Work Phone: 1(759) 282-885712-07-2023 Evaluation note* Encounter Date Diagnosis Assessment Notes Treatment Notes Treatment Clinical Notes Mar, Diarrhea (ICD-10 - R19.7) [facility] Other 11-13-2023 Evaluation note* Encounter Date Diagnosis Assessment Notes Treatment Notes Treatment Clinical Notes Feb, Controlled type 2 di abetes mellitus with complication, without long-term current use of insulin (ICD-10 - E11.8) [facility] Other 10-27-2023 Evaluation note* Encounter Date Diagnosis [...] evaluation. DIscussed possible need for vascular f/u [facility] Other 10-24-2023 Evaluation note* Encounter Date Diagnosis Assessment Notes Treatment Notes Treatment Clinical Notes Jan, Controlled type 2 di abetes mellitus with complication, without long-term current use of insulin (ICD-10 - E11.8) [facility] Other 10-19-2023 Progress note Author Roxane Bills [facility] January 29, 2023 9:44amNote Date/TimeOctober 2022 9:02[facility] at [address] [address] Hem/Onc Follow Up Note - OP Signed Patient: Kelsea Turcios MR#: [id number] : 1960 Acct:[id number] Age/Sex: 62 / F Type: REG RCR [...] a creatinine of 1.64 correlating to EGFR, gaz-Yxtlwnd-Otrtxwpl 32. This has not significantly changed over the last year but is lower than prior labs from 0187-9790. Most recent calcium within normal limits and [...] Negative for environmental allergies and food allergies. [facility] - History Attestation statement: The following [...] H, IgM 107, Serum Immunofixation A, Free [place] LC, Quant 237.9 H, Free Lambda LC, Quant 38.0 H, Free [place]/Lambda Ratio 6.26 H 01/22/23 13:24: PHA Creatinine Clear 44.97, Sodium 141, Potassium 4.2, Chloride 100, Carbon Jvdvkhi93.1 H, Anion Gap 13.1, BUN 13, Creatinine 1.37 H, Est GFR (CKD-EPI) 43.118, Glucose 199 H, Calcium8.6, Iron 74, TIBC 311, Iron Tllozvvhur84.8, Transferrin 222, Ferritin 192.2, Total Bilirubin 0.4, [...] % (Auto) 64.2, Lymph % (Auto) 25.5, Craig % (Auto) 5.6, Eos % (Auto) 4.2, Baso % (Auto) 0.5, Nucleat RBC Rel Count 0.0, Neut # (Auto) 8.0 H, Lymph # (Auto) 3.2, Craig # (Auto) 0.7, Eos # (Auto) 0.5 [...] a creatinine of 1.64 correlating to EGFR, zcx-Otcajqb-Mpuygfda 32. This has not significantly changed over the last year but is lower than prior labs from 1635-4977. Most recent calcium within normal limits and [...] for coordination of care (as documented) and khil-hz-thzr counseling of patient and/or family. Dictated By: Roxane Bills MD DD/ 0900 Signed By: <Electronically signed by MD Roxane Bills> 01/29/23 0944 [facility] Work Phone: 1(797) 247-660810-11-2023 Evaluation note* Encounter Date Diagnosis Assessment Notes Treatment Notes Treatment Clinical Notes Jan, Left hip pain (ICD-10 - M25.552) [facility] Other 10-02-2023 Evaluation note* Encounter Date Diagnosis Assessment Notes Treatment Notes Treatment Clinical Notes Jan, Other chronic pain (ICD-10 - G89 .29) Jan,Lumbago with sciatica, left side (ICD-10 - M54.42) [facility] Other 09-05-2023 Evaluation note* Encounter Date Diagnosis Assessment Notes Treatment Notes Treatment Clinical Notes Dec, Acquired lymphedema of lower ext remity (ICD-10 - I89.0) [facility] Other 07-17-2023 Evaluation note* Encounter Date Diagnosis Assessment Notes Treatment Notes Treatment Clinical Notes Oct, Type 2 diabetes ahsan itus with diabetic chronic kidney disease (ICD- 10 - E11.22) [facility] Other 07-03-2023 Evaluation note* Encounter Date Diagnosis Assessment Notes Treatment Notes Treatment Clinical Notes Oct, Other chronic pain (ICD-10 - G89 .29) [facility] Other 06-28-2023 Evaluation note* Encounter Date Diagnosis Assessment Notes Treatment Notes Treatment Clinical Notes Sep, Gait instability (ICD-10 - R26.8 1) [facility] Other 06-06-2023 Evaluation note* Encounter Date Diagnosis [...] obstructive pulmonary disease, unspecified (ICD-10 - J44.9) [facility] Other 05-30-2023 Evaluation note* Encounter Date Diagnosis Assessment Notes Treatment Notes Treatment Clinical Notes August, Lumbosacral spondylosis without myelopathy (ICD-10 - M47.817) [facility] Other 05-02-2023 Evaluation note* Encounter Date Diagnosis Assessment Notes Treatment Notes Treatment Clinical Notes August, Chronic obstructive pulmonary disease, unspecified (ICD-10 - J44.9) [facility] Other 04-21-2023 Evaluation note* Encounter Date Diagnosis Assessment Notes Treatment Notes Treatment Clinical Notes Jul, Controlled type 2 di abetes mellitus with complication, without long-term current use of insulin (ICD-10 - E11.8) [facility] Other 04-20-2023 Progress note Author Roxane Bills [facility] July 31, 2022 1:09pmNote Date/TimeApril 2022 3:08pm[facility] [place] [address] Hem/Onc Follow Up Note - OP Signed Patient: Kelsea Turcios MR#: [id number] : 1960 Acct:[id number] Age/Sex: 61 / F Type: REG RCR [...] a creatinine of 1.64 correlating to EGFR, mfo-Ipsvkly-Qrdkzdkw 32. This has not significantly changed over the last year but is lower than prior labs from 7469-2324. Most recent calcium within normal limits and [...] Negative for environmental allergies and food allergies. [facility] - History Attestation statement: The following [...] - Last 7 Days 07/22/22 09:12: Free [place] LC, Quant 120.4 H, Free Lambda LC, [...] a creatinine of 1.64 correlating to EGFR, aaa-Coexjas-Ovsrhfnm 32. This has not significantly changed over the last year butis lower than prior labs from 2514-2088. Most recent calcium within normal limits and [...] for coordination of care (as documented) and zjdh-ts-ranp counseling of patient and/or family. Dictated By: Roxane Bills MD DD/ 1509 Signed By: <Electronically signed by MD Roxane Bills> 07/31/[address] [facility] Work Phone: 1(228) 753-657904-07-2023 Evaluation note* Encounter Date Diagnosis Assessment Notes Treatment Notes Treatment Clinical Notes Jul, Essential hypertension (ICD-10 - I10) [facility] Other 04-06-2023 Evaluation note* Encounter Date Diagnosis Assessment Notes Treatment Notes Treatment Clinical Notes Jul, Type 2 diabetes ahsan itus with diabetic chronic kidney disease (ICD- 10 - E11.22) [facility] Other 04-03-2023 Evaluation note* Encounter Date Diagnosis Assessment Notes Treatment Notes Treatment Clinical Notes Jul, Essential hypertension (ICD-10 - I10) [facility] Other 03-27-2023 Evaluation note* Encounter Date Diagnosis [...] discussion, agrees with plan, denies any questions. [facility] Other 03-23-2023 NoteCONSULTATION CONSULTATION DATE: 07/03/2022 TO: [facility] CHIEF COMPLAINT: Left lower back pain. [...] one pill up to b.i.d. as tolerated.[facility] [id number] Evaluation note* Encounter Date Diagnosis Assessment Notes Treatment Notes Treatment Clinical Notes Jun, Type 2 diabetes ahsan itus with diabetic chronic kidney disease (ICD- 10 - E11.22) Jun,cquired lymphedema of lower extremity (ICD-10 - I89.0) Jun,ough (ICD-10 - R05.9) [facility] Other 02-02-2023 Evaluation note* Encounter Date Diagnosis Assessment Notes Treatment Notes Treatment Clinical Notes May, Conjunctivitis (ICD-10 - H10.9) [facility] Other 01-25-2023 Evaluation note* Encounter Date Diagnosis [...] on current dose of antihypertensives, will continue [facility] Other 01-24-2023 NoteCONSULTATION CONSULTATION DATE: 05/06/2022 CHIEF COMPLAINT: Low back pain, bilateral lower extremity pain. HISTORY OF PRESENT ILLNESS: This is a 61-year-old female who is referred to us by Dr. Peri Tyson from [facility]. The patient has had [...] kidney disease. The patient takes half a [place] tablet on a p.r.n. basis, duloxetine [...] patient responds, we can increase that to [place] 5/325 on a t.i.d. basis. I [...] like to proceed. CC: Laureen Maddox D.O.The [id number] Progress note Author Raymundo SharmaAdena [facility] April 23, 2022 12:40pmNote Date/TimeJanuary 2022 11:14[facility] [place] [address] Hem/Onc Follow Up Note - OP Signed Patient: Kelsea Turcios MR#: [id number] : 1960 Acct:[id number] Age/Sex: 61 / F Type: REG RCR [...] a creatinine of 1.64 correlating to EGFR, lnl-Pqmruue-Hbrhvwjc 32. This has not significantly changed over the last year but is lower than prior labs from 5702-0247. Most recent calcium within normal limits and [...] 3.4, Globulin (PEP) 3.9, Albumin/Globulin (PEP) 0.9, Huhcq-3-Emahfhbih 0.3, Wtiyg-5-Gokmirohq 0.9, Beta Globulins 1.4 H, Gamma Globulins 1.3, M-Damien 0.4 H, PEP Note , IgG 1443, IgA 625 H, IgM 98, Free [place] LC, Quant 162.6 H, Free Lambda LC, Quant 44.5 H, Free [place]/Lambda Ratio 3.65 H 04/17/22 10:05: PHA Creatinine Clear 51.63, Sodium 138, Potassium 3.5, Chloride 98, Carbon Dioxide 30.7 H, Anion Gap 12.8, BUN 17, Creatinine 1.26 H, Est GFR ( Amer) 52, Est GFR (Non-Af Amer) 43, Glucose 269 H, Calcium 9.1, Iron 53, TIBC 346, Iron Saturation 15.3 L, Transferrin 247, Spcvwrxh73.6, Total Bilirubin 0.3, AST 23, ALT 22, Alkaline Phosphatase 121 H, Total Protein 7.0, Albumin 3.2, Globulin 3.8, Albumin/Globulin Ratio 0.8 04/17/22 10:05: Corrected WBC 10.8, Uncorrected WBC Count 10.8, RBC 4.02, Hgb 11.2 L, Hct 35.4, MCV88.1, MCH 27.9, MCHC 31.6 L, RDW 15.7 H, Plt Count 273, MPV 7.6, Neut % (Auto) 61.2, Lymph % (Auto)24.5, Craig % (Auto) 7.9, Eos % (Auto) 5.9, Baso % (Auto) 0.5, Nucleat RBC Rel Count 0.2, Neut # (Auto) 6.6, Lymph # (Auto) 2.6, Craig # (Auto) 0.8, Eos # (Auto) 0.6 [...] a creatinine of 1.64 correlating to EGFR, jmu-Hstiewy-Smvtmyij 32. This has not significantly changed over the last year but is lower than prior labs from 2761-4875. Most recent calcium within normal limits and [...] for coordination of care (as documented) and pqdi-sx-kixd counseling of patient and/or family. Dictated By: Raymundo Galicia APRN DD/ 1114 Signed By: <Electronically signed by LUCI Galicia> 04/23/22 1240 [facility] Work Phone: 1(252) 810-178201-10-2023 Evaluation note* Encounter Date Diagnosis Assessment Notes Treatment Notes Treatment Clinical Notes Apr, Controlled substance agreement s igned (ICD-10 - Z79.899) [facility] Other 01-09-2023 Evaluation note* Encounter Date Diagnosis Assessment Notes Treatment Notes Treatment Clinical Notes Apr, Unspecified vitamin D deficiency (ICD9-CM - 268.9) Apr,Type 2 diabetes mellitus with diabetic chronic kidney disease (ICD- 10 - E11.22) [facility] Other 11-28-2022 Evaluation note* Encounter Date Diagnosis Assessment Notes Treatment Notes Treatment Clinical Notes Feb, Type 2 diabetes ahsan itus with diabetic chronic kidney disease (ICD- 10 - E11.22) [facility] Other 11-08-2022 Evaluation note* Encounter Date Diagnosis Assessment Notes Treatment Notes Treatment Clinical Notes Feb, Controlled substance agreement s igned (ICD-10 - Z79.899) Feb,bdominal pain (ICD-10 - R10.9) [facility] Other 11-03-2022 Evaluation note* Encounter Date Diagnosis Assessment Notes Treatment Notes Treatment Clinical Notes Feb, Acquired lymphedema of lower ext remity (ICD-10 - I89.0) [facility] Other 11-01-2022 Evaluation note* Encounter Date Diagnosis Assessment Notes Treatment Notes Treatment Clinical Notes Feb, Type 2 diabetes mellitus without complications (ICD-10 - E11.9) [facility] Other 10-31-2022 Evaluation note* Encounter Date Diagnosis Assessment Notes Treatment Notes Treatment Clinical Notes Jan, UTI (urinary tract infection) (I CD-10 - N39.0) [facility] Other 10-24-2022 Evaluation note* Encounter Date Diagnosis [...] well controlled on current medications, will continue [facility] Other 10-12-2022 Evaluation note* Encounter Date Diagnosis Assessment Notes Treatment Notes Treatment Clinical Notes Jan, Controlled substance agreement s igned (ICD-10 - Z79.899) [facility] Other 09-12-2022 Evaluation note* Encounter Date Diagnosis Assessment Notes Treatment Notes Treatment Clinical Notes Dec, Other chronic pain (ICD-10 - G89 .29) Was working on previous PCP to wean down on dosage of [place] 5-325. She currently is not taking thisevery day. She has upcoming f/u for a back injection and was recommended to consider pain management referral for RFA. Can continue use of [place] sparingly as needed for severe pain. [...] ?diagnosis of narcolepsy in setting of TANYA. [facility] Other 08-19-2022 Evaluation note* Encounter Date Diagnosis Assessment Notes Treatment Notes Treatment Clinical Notes Nov, Essential hypertension (ICD-10 - I10) [facility] Other 07-14-2022 Progress note Author Roxane Bills [facility] October 24, 2021 2:26pmNote Date/TimeJuly 2021 1:[facility]pm[facility] [place] [address] Hem/Onc Follow Up Note - OP Signed Patient: Kelsea Turcios MR#: [id number] : 1960 Acct:[id number] Age/Sex: 61 / F Type: REG RCR [...] a creatinine of 1.64 correlating to EGFR, xov-Skzgxlj-Jtmegwjz 32. This has not significantly changed over the last year but is lower than prior labs from 6165-9118. Most recent calcium within normal limits and [...] a creatinine of 1.64 correlating to EGFR, kbt-Bzkvcbo-Zoputwpr 32. This has not significantly changed over the last year but is lower than prior labs from 7604-0682. Most recent calcium within normal limits and [...] for coordination of care (as documented) and tzyh-it-ejfb counseling of patient and/or family. Dictated By: Roxane Bills MD DD/ 8657 Signed By: <Electronically signed by MD Roxane Bills> 10/24/[address] [facility] Work Phone: 1(115) 566-482207-11-2022 Evaluation note* Encounter Date Diagnosis Assessment Notes [...] repeat the chemistry panel at this time. [facility] Other 06-23-2022 Evaluation note* Encounter Date Diagnosis Assessment Notes Treatment Notes Treatment Clinical Notes Sep, Anemia NOS (ICD9-CM - 285.9) [facility] Other 06-09-2022 Evaluation note* Encounter Date Diagnosis Assessment Notes Treatment Notes Treatment Clinical Notes Sep, Type 2 diabetes ahsan itus with diabetic chronic kidney disease (ICD- 10 - E11.22) [facility] Other 06-01-2022 Progress note Author Roxane Bills [facility] September 11, 2021 2:34pmNote Date/TimeJun2021 10:47[facility] [place] [id number] Hem/Onc Follow Up Note - OP Signed Patient: Kelsea Turcios MR#: [id number] : 1960 Acct:[id number] Age/Sex: 60 / F Type: REG RCR [...] a creatinine of 1.64 correlating to EGFR, uzx-Nlvtiwc-Huegaqbl 32. This has not significantly changed over the last year but is lower than prior labs from 3908-8336. Most recent calcium within normal limits and [...] a creatinine of 1.64 correlating to EGFR, yxx-Lxxbkgl-Tcijtjsg 32. This has not significantly changed over the last year but is lower than prior labs from 5290-6217. Most recent calcium within normal limits and [...] for coordination of care (as documented) and adyb-hk-prte counseling of patient and/or family. Dictated By: Roxane Bills MD DD/ 1045 Signed By: <Electronically signed by MD Roxane Bills> 09/11/[address] [facility] Work Phone: [phone] 552-902405-12-2022 Evaluation note* Encounter Date Diagnosis Assessment Notes [...] surgery. She r eports prior injections at [facility] with Dr. Groves. She feels [...] negative findings were considered in medical decision-making. [facility] Other 05-07-2022 Consult note Author Roxane Bills [facility] August 16, 2021 10:27pmNote Date/TimeMay 2021 10:19[facility] at [address] [address] Hem/Onc Consult Note - OP Signed Patient: Kelsea Turcios MR#: [id number] : 1960 Acct:[id number] Age/Sex: 60 / F Type: REG RCR [...] a creatinine of 1.64 correlating to EGFR, tah-Yxuezby-Hheoekjk 32. This has not significantly changed over the last year but is lower than prior labs from 2648-5354. Most recent calcium within normal limits and we do not have recent imaging other than her MRIswhich have not shown any bony lytic lesions. The patient does report diffuse pain. She has urinary tract infections intermittently but no other history of chronic infections. She has no personal history of malignancy, chemotherapy, or radiation therapy. [facility] - History Attestation statement: The following [...] a creatinine of 1.64 correlating to EGFR, dnu-Fhsyodk-Paigwoel 32. This has not significantly changed over the last year but is lower than prior labs from 5676-3481. Most recent calcium within normal limits and [...] for coordination of care (as documented) and uyrm-ef-zhjr counseling of patient and/or family. Dictated By: Roxane Bills MD DD/ 1010 Signed By: <Electronically signed by MD Roxane Bills> 08/16/[address] [facility] Work Phone: [phone]) [phone] Evaluation note* Encounter Date Diagnosis Assessment Notes [...] the patient did have an MRI at [facility] about 1 year ago. This showed lipoma [...] Percocet multiple times a day from the [facility]. I have gradually weaned her dose down and I explained her that my plan is to continue to wean the dose down as I do not typically treat chronic pain with opiates. She has been cooperative with this. She may get opinion from her neurologist or when she establishes with pain management. Jul,ther chronic pain (ICD-10 - G89.29) [facility] Other 04-27-2022 Evaluation note* Encounter Date Diagnosis Assessment Notes Treatment Notes Treatment Clinical Notes Jul, Acquired lymphedema of lower ext remity (ICD-10 - I89.0) Jul,Type 2 diabetes mellitus with diabetic chronic kidney disease (ICD- 10 - E11.22) [facility] Other 04-11-2022 Evaluation note* Encounter Date Diagnosis [...] ahead and recheck it in 3 months. [facility] Other 03-15-2022 Evaluation note* Encounter Date Diagnosis Assessment Notes Treatment Notes Treatment Clinical Notes Jun, Acquired lymphedema of lower ext remity (ICD-10 - I89.0) [facility] Other 03-10-2022 Evaluation note* Encounter Date Diagnosis [...] loss, compression stockings, keeping legselevated, and activity. [facility] Other 02-23-2022 Evaluation note* Encounter Date Diagnosis Assessment Notes Treatment Notes Treatment Clinical Notes May, Type 2 diabetes ahsan itus with diabetic chronic kidney disease (ICD- 10 - E11.22) [facility] Other 02-10-2022 Evaluation note* Encounter Date Diagnosis Assessment Notes Treatment Notes Treatment Clinical Notes May, Acquired lymphedema of lower ext remity (ICD-10 - I89.0) [facility] Other 02-10-2022 Evaluation note* Encounter Date Diagnosis [...] will work-up further. Follow-up in 4 weeks. [facility] Other 02-02-2022 Evaluation note* Encounter Date Diagnosis Assessment Notes Treatment Notes Treatment Clinical Notes May, Unspecified vitamin D deficiency (ICD9-CM - 268.9) [facility] Other 01-19-2022 Evaluation note* Encounter Date Diagnosis [...] following her next appointment with vascular surgery. [facility] Other 12-21-2021 Evaluation note* Encounter Date Diagnosis [...] (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 (ICD-10 - Z79.4) [facility] Other 12-09-2021 Evaluation note* Encounter Date Diagnosis Assessment Notes Treatment Notes Treatment Clinical Notes Mar, GERD (gastroesophageal reflux di sease) (ICD-10 - K21.9) [facility] Other 11-22-2021 Evaluation note* Encounter Date Diagnosis [...] will undergo full functional venous duplex examination. [facility] Other 11-17-2021 Evaluation note* Encounter Date Diagnosis Assessment Notes Treatment Notes Treatment Clinical Notes Feb, Encounter for screen ing mammogram for malignant neoplasm of breast (ICD-10 - Z12.31) [facility] Other Evaluation noteNo InformationNort videof.me Other Evaluation note* Diagnosis Onset Date Resolution Status Monoclonal gammopathy acuteDegenerative joint disease of cervical and lumbar spineacuteIron deficiency anemiaacuteBipolar disorder with depressionchronicCKD (chronic kidney disease) stage 3, GFR 30-59 ml/minchronicCOPD (chronic obstructive pulmonary disease) chronicDiabeteschronicMorbid obesitychronic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)chronic [facility] Work Phone: Evaluation noteNo assessment information available [facility] Work Phone: Evaluation note* Diagnosis Onset Date Resolution Status 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 acuteIron deficiency anemiaacuteBipolar disorder with depressionchronicCKD (chronic kidney disease) stage 3, GFR 30-59 ml/minchronicCOPD (chronic obstructive pulmonary disease)chronicDiabeteschronicMorbid obesitychronic 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 [facility] Work Phone: Evaluation note* Diagnosis Onset Date Resolution Status 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 acuteBipolar disorder with depressionchronicCKD (chronic kidney disease) stage 3, GFR 30-59 ml/minchronicCOPD (chronic obstructive pulmonary disease)chronic DiabeteschronicIron deficiency anemiachronicMorbid obesitychronic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)[facility] Work Phone: Evaluation note* Diagnosis Onset [...] apnea)chronicVenous stasis dermatitis of both lower extremitiesresolved [facility] Work Phone: Evaluation note* Diagnosis Diabetes mellitus due to underlying condition with diabetic polyneuropathy, with long-term current use of insulin ([facility]) documented [facility] encounter [facility]* [...] varicose veins of both lower extremitiesacuteVenous refluxacute [facility] Work Phone: Evaluation note* Diagnosis Onset Date Resolution Status Debility acuteInflammationacuteIrritable bowel diseaseacuteOn home oxygen therapyacute Peripheral edemaacuteUlcer of left lower legacuteUlcer of right lower legacute Venous refluxacuteCKD (chronic kidney disease) stage 3, GFR 30-59 ml/minchronic COPD (chronic obstructive pulmonary disease)chronicDiabeteschronicMorbid obesity chronicOSA (obstructive sleep apnea)chronicVenous stasis dermatitis of both lower extremitiesresolvedSymptomatic varicose veins of both lower extremities acuteVenous refluxacute [facility] Work Phone: Evaluation note* Diagnosis Onset [...] refluxacuteSymptomatic varicose veins of both lower extremitiesacute [facility] Work Phone: Evaluation note* Diagnosis Onset [...] varicose veins of both lower extremitiesacute Hypothyroidismacute [facility] Work Phone: Evaluation note* Diagnosis Onset Date Resolution Status Symptomatic varicose veins of both lower extremities acuteVenous refluxacuteSymptomatic varicose veins of both lower extremitiesacute HypothyroidismacuteMorbid obesity with BMI of 45.0-49.9, adultacuteWound of left lower extremityacute [facility] Work Phone: Evaluation note* Diagnosis Onset [...] rashacuteVenous stasis dermatitis of both lower extremitiesresolved [facility] Work Phone: Evaluation note* Diagnosis Diabetes mellitus due to underlying condition with diabetic polyneuropathy, with long-term current use of insulin ([facility]) documented in this encounter [facility]* Diagnosis Chronic obstructive pulmonary disease, unspecified COPD type ([facility])- Primary Obstructive sleep apnea syndrome Obstructive sleep apnea (adult) (pediatric) documented in this encounter [facility] HealthcareEvaluation note* Diagnosis Type 2 diabetes mellitus with hyperglycemia, with long-term current use of insulin ([facility])- Primary Vitamin D deficiency Primary hypertension ([facility]) Unspecified essential hypertension Hyperlipemia, mixed ([facility]) Mixed hyperlipidemia Insulin long-term use ([facility]) Encounter for long-term (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 Encounter for dietary consultation Stage 3b chronic kidney disease (HCC) ([facility]) Class 3 severe obesity due to excess calories with serious comorbidity and body mass index (BMI) of45.0 to 49.9 in adult ([facility]) [facility]* Diagnosis Diabetes mellitus due to underlying condition with diabetic polyneuropathy, with long-term current use of insulin ([facility])- Primary Pain due to onychomycosis of toenails [...] Diagnosis Type 2 diabetes mellitus with hyperglycemia ([facility]/HCC) [facility]* Diagnosis Xerosis cutis- Primary Other specified disease of sebaceous glands Diabetes mellitus due to underlying condition with diabetic polyneuropathy, with long-term current use of insulin ([facility]) Pain due to onychomycosis of toenails of both feet documented [facility]* Diagnosis Type 2 diabetes mellitus with hyperglycemia, with long-term current use of insulin ([facility])- Primary Vitamin D deficiency Primary hypertension (CMS/HCC) Unspecified essential hypertension Hyperlipemia, mixed (CMS/HCC) Mixed hyperlipidemia Insulin long-term use ([facility]) Encounter for long-term (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 Encounter for dietary consultation Stage 3b chronic kidney disease (HCC) ([facility]) Class 3 severe obesity due to excess calories with serious comorbidity and body mass index (BMI) of45.0 to 49.9 in adult ([facility]) Type 2 diabetes mellitus with hyperglycemia (CMS/HCC) [facility]* Diagnosis Chronic obstructive pulmonary disease, unspecified COPD type ([facility]/HCC) [facility]* Diagnosis Type 2 diabetes mellitus with hyperglycemia, with long-term current use of insulin ([facility])- Primary Vitamin D deficiency Primary hypertension (CMS/HCC) Unspecified essential hypertension Hyperlipemia, mixed (CMS/HCC) Mixed hyperlipidemia Insulin long-term use ([facility]) Encounter for long-term (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 Encounter for dietary consultation Stage 3b chronic kidney disease (HCC) ([facility]) Class 3 severe obesity due to excess calories with serious comorbidity and body mass index (BMI) of45.0 to 49.9 in adult Type 2 diabetes mellitus with hyperglycemia ([facility]) [facility]* Diagnosis Chronic obstructive pulmonary disease, unspecified COPD type ([facility])- Primary Obstructive sleep apnea syndrome Obstructive sleep apnea (adult) (pediatric) documented in this encounter [facility] HealthcareEvaluation note* Diagnosis Diabetes mellitus due to underlying condition with diabetic polyneuropathy, with long-term current use of insulin (HCC)- Primary Pain due to onychomycosis of toenails of both feet Xerosis cutis Other specified disease of sebaceous glands documented in this encounter [facility] HealthcareEvaluation note* Diagnosis Vitamin D deficiency- Primary Type 2 diabetes mellitus with hyperglycemia, with long-term current use of insulin (HCC) Primary hypertension Unspecified essential hypertension Hyperlipemia, mixed Mixed hyperlipidemia Insulin long-term use ([facility]) Encounter for long-term (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 Encounter for dietary consultation Stage 3b chronic kidney disease ([facility]-HCC) documented in this encounter [facility] HealthcareEvaluation note* Diagnosis Type 2 diabetes mellitus with hyperglycemia, with long-term current use of insulin ([facility]) documented in this encounter [facility] HealthcareEvaluation note* Diagnosis Diabetes mellitus due to underlying condition with diabetic polyneuropathy, with long-term current use of insulin (HCC)- Primary Pain due to onychomycosis of toenails of both feet Xerosis cutis Other specified disease of sebaceous glands documented in this encounter [facility] HealthcareHistory general Narrative - Reported* Type Description Date Medical History asthma Medical Historydiabetes mellitus IIMedical Historysleep apneaMedical History HypertensionMedical Historyspinal stenosisMedical HistoryCOPDMedical HistoryGERD Medical HistoryanxietySurgical Historyright and left Foot Surgery06/2012Surgical [id number] [id number] HistoryC section x 4Hospitalization Historysee aboveHospitalization Historychild x 4[facility] [employer] Other History general Narrative - Rep[facility]No[facility] [employer] Other History general Narrative - Reported* Type Description Date Medical History asthma Medical Historydiabetes mellitus IIMedical Historysleep apneaMedical History HypertensionMedical Historyspinal stenosisMedical HistoryCOPDMedical HistoryGERD Medical HistoryanxietyMedical HistoryanemiaMedical HistoryArthritisMedical HistorycataractsMedical HistoryGoutMedical Historykidney diseaseMedical History obesityMedical Historychronic depressionMedical Historythyroid diseaseMedical HistoryulcersSurgical Historyright and left Foot Surgery06/2012Surgical History [id number] Wjxvbrydgkmbbnvqvjwedp1985Oerlordv HistoryC section x 4 Hospitalization Historysee aboveHospitalization Historychild x 4 Hospitalization HistoryFormerly [facility] [employer] Other Hospital Discharge instructions Additional Instructions POST [...] worsening of your eyesight. Please call your asbestos removal supervisor during normal business hours. If after business hours call Dr. Nik Pineda at his cell [phone] or his office [phone].[facility] Work Phone: Hospital Discharge instructions Additional Instructions Monitor glucose levels as before Continue oxygen as per chronic orders Dietitian recommendations: *Glucerna, 1 container, twice daily with mealsSelect Medical [facility] Work Phone: Progress note Author Raymundo Sharmaemerita [facility] April 23, 2022 12:40pmNote Date/TimeJan2022 11:14[facility] [place] [address] Hem/Onc Follow Up Note - OP Signed Patient: Kelsea Turcios MR#: [id number] : 1960 Acct:[id number] Age/Sex: 61 / F Type: REG RCR [...] a creatinine of 1.64 correlating to EGFR, jra-Dmkbqgg-Xjrpayvd 32. This has not significantly changed over the last year but is lower than prior labs from 4024-2248. Most recent calcium within normal limits and [...] 3.4, Globulin (PEP) 3.9, Albumin/Globulin (PEP) 0.9, Iofqw-9-Pnoqayqjb 0.3, Aohkh-1-Pwmigkznb 0.9, Beta Globulins 1.4 H, Gamma Globulins 1.3, M-Damien 0.4 H, PEP Note , IgG 1443, IgA 625 H, IgM 98, Free [place] LC, Quant 162.6 H, Free Lambda LC, Quant 44.5 H, Free [place]/Lambda Ratio 3.65 H 04/17/22 10:05: PHA Creatinine Clear 51.63, Sodium 138, Potassium 3.5, Chloride 98, Carbon Dioxide 30.7 H, Anion Gap 12.8, BUN 17, Creatinine 1.26 H, Est GFR ( Amer) 52, Est GFR (Non-Af Amer) 43, Glucose 269 H, Calcium 9.1, Iron 53, TIBC 346, Iron Saturation 15.3 L, Transferrin 247, Fbudbrde31.6, Total Bilirubin 0.3, AST 23, ALT 22, Alkaline Phosphatase 121 H, Total Protein 7.0, Albumin 3.2, Globulin 3.8, Albumin/Globulin Ratio 0.8 04/17/22 10:05: Corrected WBC 10.8, Uncorrected WBC Count 10.8, RBC 4.02, Hgb 11.2 L, Hct 35.4, MCV88.1, MCH 27.9, MCHC 31.6 L, RDW 15.7 H, Plt Count 273, MPV 7.6, Neut % (Auto) 61.2, Lymph % (Auto)24.5, Craig % (Auto) 7.9, Eos % (Auto) 5.9, Baso % (Auto) 0.5, Nucleat RBC Rel Count 0.2, Neut # (Auto) 6.6, Lymph # (Auto) 2.6, Craig # (Auto) 0.8, Eos # (Auto) 0.6 [...] a creatinine of 1.64 correlating to EGFR, eve-Jdlgmbs-Ixiujzfg 32. This has not significantly changed over the last year but is lower than prior labs from 2438-5167. Most recent calcium within normal limits and [...] for coordination of care (as documented) and sawg-iw-djze counseling of patient and/or family. Dictated By: Raymundo Galicia APRN DD/ 1114 Signed By: <Electronically signed by LUCI Galicia> 04/23/22 1240 [facility] Work Phone: Progress note Author Erica Diehl [facility] May 12, 2023 8:28amNote Date/TimeJanuary 2023 8:28[place] [address] Wound Center Provider Note Signed Patient: Kelsea Turcios MR#: [id number] : 1960 Acct:[id number] Age/Sex: 62 / F Copies to: Peri Tyson, DO Erica Diehl, LEAN MANAGER~ HPI Date of Visit Date of Visit: Date of Service: 05/12/2023 Time of Service: 08:22 Narrative HPI: 04/28/23 Kelsea is a 62-year-old [facility] [...] I would like her to see a transportation superintendent, especially if the venous studies do not [...] for the past year 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 [facility] Work Phone: Progress note Author Roxane Bills [facility] September 02, 2023 9:51pmNote Date/TimeMay 2023 10:15[facility] [place] [address] Cancer Center Note Signed Patient: Kelsea Turcios MR#: [id number] : 1960 Acct:[id number] Age/Sex: 62 / F Type: DEP AMB [...] a creatinine of 1.64 correlating to EGFR, pnu-Tpzbmxo-Qetlrgte 32. This has not significantly changed over the last year but is lower than prior labs from 2344-3713. Most recent calcium within normal limits and [...] stable IgG 1722, IgA 604, IgM 94. [place]/lambda light chain analysis was not reported. Since [...] a creatinine of 1.64 correlating to EGFR, gps-Esutgwi-Hulzjtsq 32. This has not significantly changed over the last year but is lower than prior labs from 5838-9024. Most recent calcium within normal limits and [...] visit and go over labs for [facility] Medical History Medical History (Updated 09/02/23 [...] signed by MD Roxane Bills> 09/02/23 2[address] [facility] Work Phone: Reupdt for referral (narrative)No reason for referral information availableZanesville City Hospital Work Phone: Rergyo for visit Narrativediscuss pain management referralNoEinstein [facility] [employer] Other Reason for visit NarrativeNeurosurgery Referral Update [facility] [employer] Other Reason for Referral Reason left hip pain Diagnosis 1 Left hip pain (M25.5 52) Referral Organization [facility] Family Doretha Marie Referring Provider First Name Peri Referring Provider Last Name Marbella Referring Provider Specialty [facility] [employer] Referred Organization [facility] Referred Address ,[place], [place],[address] Referred Provider Specialty Orthopaedic Surgery Referral Priority Routine Reason CANCELLED Excessiv e daytime somnolence, hx narcolepsy diagnosis, currently on CPAP for TANYA Diagnosis 1 TANYA (obstructive sle ep apnea) (G47.33) Referral Organization [facility] Family Doretha Marie Referring Provider First Name Peri Referring Provider Last Name Marbella Referring Provider Specialty [facility] [employer] Referred Organization [facility] Referred Address [address] [place], [place],[address] Referred Provider Specialty Sleep Medici ne Referral Priority Routine General Notes Elaina Salcido 03/2022 02:41:07 PM > referral received, Feli already faxed referral to Central Scheduling. Closing referral Reason * Waiting for appt neurology records pending Diagnosis 1 Low back pain, unspe cified (M54.50) Referral Organization [facility] Family Doretha Marie Referring Provider First Name Giovanni Referring Provider Last Name Josh Referring Provider Specialty Family Medi cine Referred Organization [facility] Referred Provider Nicko Mckeon Referred Address [address],[place] [address] ,[place], [place],[address] Referred Provider Specialty Pain Medicin e Referral Priority Routine General Notes Elaina Salcido 01:53:26 PM > referral received and sent p2p successful per log Reason * FU 07/29 ulcer Diagnosis 1 Non-pressure chronic ulcer of unspecified part of unspecified lower leg with unspecified severity (L97.909) Referral Organization [facility] Referring Provider First Name Giovanni Referring Provider Last Name [facility] Referring Provider Specialty Family Medi Briggo Referred Organization [facility] Referred Address [address] [place], [place],[address] Referred Provider Specialty Wound Care Referral Priority [...] 10:58 am COPD (chronic obstructive pulmonary dise [facility]) August 31, 2024 10:58am Degenerative joint disease [...] 26, 025 9:59am [facility] 9:59am Diabetes December 26, 2024 9:59am [...] 2024 11 :23am Encounter for chemotherapy management [facility] 2024 11:23am History of iron [...] 2024 11 :11am Encounter for chemotherapy management [facility] 2024 11:11am History of iron [...] 1:46 pm COPD (chronic obstructive pulmonary dise [facility]) October 27, 2024 1:46pm Diabetic neuropathy associat [...] :23am Encounter for chemotherapy management [facility] 2024 11:23am History of iron deficiency anemia [...] :11am Encounter for chemotherapy management [facility] 2024 11:11am History of iron deficiency anemia [...] 2024 11 :23am Encounter for chemotherapy management [facility] 2024 11:23am History of iron [...] 2024 11 :11am Encounter for chemotherapy management [facility] 2024 11:11am History of iron [...] :23am Encounter for chemotherapy management [facility] 2024 11:23am History of iron deficiency anemia [...] :11am Encounter for chemotherapy management [facility] 2024 11:11am History of iron deficiency anemia [...] upReason CommentsDM Foot CareDM NAIL CAREReasonOnset DateCommentsMed [id number]/28/2024 ReasonCommentsDM Foot Care Care Teams (unrecognized sec [...] December 30, 2023 End: December 29william London PAINT STRIPING MACHINE OPERATOR-CAttending ProviderActiveStart: December 30, 2023 End: December 30, [...] February 24, 2024 Brenden Groves , SHOAIBpark[facility] ProviderActiveStart: February 24, 2024 Peri Tyson , [...] Provider Active Start: March 04, 2023 SHOAIB [facility] ProviderActiveStart: March 04, 2023 RAFAEL Mirandarifanyy Care [...] Team Status: Active Member Role Status Alyssa Blils MD Attending Provider Active Farshad Macias ProviderActivePeri [...] Groves , DOReferring ProviderActiveGloria Luis Tyson , DOPrievergreen medical centery Care ProviderActiveMary Rose Marie Galicia , APRNActive Team Status: Inactive Member Role Status Dates Peri Tyson , Primary Care Provider Active Rashid Sims ProviderActiveTeam MemberRelationshipSpecialtyStart Date End Date Giovanni Moreno MD [address] [facility] [place] [address] PCP - [facility] Medicine09/18/22Team MemberRelationshipSpecialtyStart DateEnd Date Giovanni Moreno MD [address] [facility] [address] [place] [id number] PCP - [facility] Medicine09/18/22am MemberRelationshipSpecialtyStart DateEnd Date Giovanni Moreno MD [address] [facility] [place] [address] PCP - Generalmily Medicine09/18/22Team MemberRelationshipSpecialtyStart DateEnd Date Giovanni Moreno MD [address] [facility] [address] [place] [id number] PCP - Generalmily Medicine09/18/22Team MemberRelationshipSpecialtyStart DateEnd Date Giovanni Moreno MD [address] [facility] [place] [address] PCP - GeneralFamily Medicine09/18/22Team MemberRelationshipSpecialtyStart DateEnd Date Giovanni Moreno MD [address] [place] [address] PCP - [facility]09/18/22Team MemberRelationshipSpecialtyStart DateEnd Date Giovanni Moreno MD [address] [place] [address] PCP - [facility]09/18/22 Team Status: Active Member Role Status Dates Peri Tyson DO Primary Care Provider Active Start: November 24, 2023 Rashid Wheatley ProviderActiveStart: November 24, 2023 Team Status: Active Member Role Status Dates Peri Tyson DO Primary Care Provider Active Start: December 30, 2023 Rachana London , PAINT STRIPING MACHINE OPERATOR-CAttending ProviderActiveStart: December 30, 2023 Team Status: Active [...] MemberRelationshipSpecialtyStart DateEnd Date Giovanni Moreno MD [address] [place] [address] [facility] - [facility]09/18/22Team MemberRelationshipSpecialtyStart DateEnd Date Giovanni Moreno MD [address] [place] [address] PCP - [facility] Medicine09/18/22Team MemberRelationshipSpecialtyStart DateEnd Date Giovanni Moreno MD [address] [place] [address] PCP - [facility]09/18/22 Team Status: Inactive Member Role Status [...] April 18, 2024Team MemberRelationshipSpecialtyStart DateEnd Date Giovanni oMreno MD [address] [place] [address] PCP - [facility]09/18/22Team MemberRelationshipSpecialtyStart DateEnd Date Giovanni Moreno MD [address] [place] [address] PCP - [facility]09/18/22Team MemberRelationshipSpecialtyStart DateEnd Date Giovanni Moreno MD [address] [place] [address] PCP - GeneralFamily Medicine09/18/22 Team Status: Inactive Member Role Status Dates Peri Tyson , Primary Care Provide r, Attending Provider Active Start: August 11, 2024 End: August 11, 2024Team MemberRelationshipSpecialtyStart DateEnd Date Giovanni Moreno MD [address] [place] [address] PCP - GeneralFamily Medicine09/18/22Team MemberRelationshipSpecialtyStart DateEnd Date Giovanni Moreno MD [address] [place] [address] PCP - Generalmily Medicine09/18/22Team MemberRelationshipSpecialtyStart DateEnd Date Giovanni Moreno MD [address] [place] [address] PCP - Generalmily Medicine09/18/22Team MemberRelationshipSpecialtyStart DateEnd Date Giovanni Moreno MD [address] [place] [address] PCP - Generalmily Medicine09/18/22Team MemberRelationshipSpecialtyStart DateEnd Date Giovanni Moreno MD [address] [place] [address] PCP - Generalmily Medicine09/18/22Team MemberRelationshipSpecialtyStart DateEnd Date Giovanni Moreno MD [address] [place] [address] PCP - Generalmily Medicine09/18/22Team MemberRelationshipSpecialtyStart DateEnd Date Giovanni Moreno MD [address] [place] [address] PCP - [facility] Medicine09/18/22Team MemberRelationshipSpecialtyStart DateEnd Date Giovanni Moreno MD [address] [place] [id number] PCP - [facility] Medicine09/18/22Team MemberRelationshipSpecialtyStart DateEnd Date Giovanni Moreno MD [address] [place] [address] PCP - [facility]09/18/22 Team Status: Inactive Member Role Status [...] DateEnd Date Giovanni Moreno MD [address] [place] [address] PCP - [facility]09/18/22Team MemberRelationshipSpecialtyStart DateEnd Date Giovanni Moreno MD [address] [place] [address] [facility] - [facility]09/18/22 Team Status: Inactive Member Role Status [...] 22, 2024 End: November 22nilam Cummins , PAINT STRIPING MACHINE OPERATOR-CAttending ProviderActiveStart: November 22, 2024 End: November 22, 2024 Team Status: Active Member Role Status Dates Roxane Bills MD Attending Provider Active Start: December 06, 2024 Farshad Deleon ProviderActiveStart: December 06, 2024 Peri Tyson DOPrimarcarmen Care ProviderActiveStart: December 06, 2024 Team Status: Inactive Member Role Status Dates Peri Tyson DO Primary Care Provider Active Start: December 06, 2024 End: December 06nilam Cummins , PAINT STRIPING MACHINE OPERATOR-CAttending ProviderActiveStart: December 06, 2024 End: December [...] Provider Active Start: December 26, 2024 [facility]ana ProviderActiveStart: December 26, 2024 Periroyce [...] 22, 2024 End: November 22nilam Cummins , PAINT STRIPING MACHINE OPERATOR-CAttending ProviderActiveStart: November 22, 2024 End: November 22, 2024 Team Status: Inactive Member Role/Relationship Status Dates Peri Tyson , DO Primary Care Provider Active Start: December 06, 2024 End: December 06nilam Cummins PAINT STRIPING MACHINE OPERATOR-CAttending ProviderActiveStart: December 06, 2024 End: December [...] 2024 Sina Aguayo ProviderActiveStart: December 27, 2024 Victorina Silva [...] MemberRelationshipSpecialtyStart DateEnd Date Giovanni Moreno MD [address] [place] [address] [facility] Team Status: Inactive Member Role/Relationship Status Dates [...] February 20, 2025 End: February 20nilam Cummins 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 [employer] [facility]. provides no warranty or guarantee of the accuracy or completeness of information in this document.
--- NOTE | 2025-03-16 10:00 | PM.CN ---
Consult Note: HPI Data of Consult Patient: known to practice within the last 3 years Consult date: 03/16/25 Requesting Physician: Rachana London NP Primary Care Provider: [facility] Consult Narrative Reason for consult: low back pain Narrative: Kelsea villatoro pleasant 64 year old female presents for evaluation and management of chronic low back pain. Patient notices increase in pain with walking and activity. pt following with oncology for weekly chemotherapy and treatment for melanoma. recently underwent left L4-5 L5-S1 TFESI with >60% improvement ongoing in pain and functional ability. Noting pain today 5/10 aching in low back, pain increases with standing, walking, twisting, lifting, bending, and activity. she notes mild relief with lying, sitting, and medications. utilizing cymbalta 60mg daily, gabapentin 600mg midday and 900mg HS, norco 5-325mg tid PRN moderate to severe pain, and tizanidine 4mg bid prn pain/spasms. cc:: CC: Rachana London NP [facility] Medical History Plantar fasciitis ?M72.2 - Plantar fascial fibromatosis (ICD-10) Acid reflux ?K21.9 - Gastro-esophageal reflux disease without esophagitis (ICD-10) Obesity ?E66.9 - Obesity, unspecified (ICD-10) Anxiety ?F41.9 - Anxiety disorder, unspecified (ICD-10) COPD (chronic obstructive pulmonary disease) ?J44.9 - Chronic obstructive pulmonary disease, unspecified (ICD-10) Asthma ?J45.909 - Unspecified asthma, uncomplicated (ICD-10) Sleep apnea ?G47.30 - Sleep apnea, unspecified (ICD-10) Hypertension ?I10 - Essential (primary) hypertension (ICD-10) Surgical History H/O foot surgery ?Z98.890 - Other specified postprocedural states (ICD-10) History of delivery ?Z98.891 - History of uterine scar from previous surgery (ICD-10) History of cholecystectomy ?Z90.49 - Acquired absence of other specified parts of digestive tract (ICD-10) History of hysterectomy ?Z90.710 - Acquired absence of both cervix and uterus (ICD-10) Meds Home Medications and Allergies Home Medications ?Medication ?Instructions ?Recorded ?Confirmed ?Type allopurinol 300 mg tablet 300 mg PO DAILY 10/30/22 02/27/25 History amlodipine 5 mg tablet (Norvasc) 5 mg PO DAILY 10/30/22 02/27/25 History brexpiprazole 3 mg tablet (Rexulti) 3 mg PO DAILY 10/30/22 02/27/25 History budesonide-formoterol HFA 160 2 inh inhalation BID 10/30/22 02/27/25 History mcg-4.5 mcg/actuation aerosol inhaler (Symbicort) carvedilol 25 mg tablet 25 mg PO BID 10/30/22 02/27/25 History cholecalciferol (vitamin D3) 50 2,000 unit PO BID 10/30/22 02/27/25 History mcg (2,000 unit) capsule colestipol 1 gram tablet 1 g PO BID 10/30/22 02/27/25 History dicyclomine 20 mg tablet 20 mg PO QID 10/30/22 02/27/25 History doxycycline hyclate 100 mg capsule 100 mg PO DAILY 10/30/22 02/27/25 History duloxetine 60 mg capsule,delayed 60 mg PO DAILY 10/30/22 02/27/25 History release (Cymbalta) furosemide 40 mg tablet 40 mg PO DAILY 10/30/22 02/27/25 History hydroxyzine HCl 10 mg tablet 10 mg PO Q8H 10/30/22 02/27/25 History insulin glargine 100 unit/mL (3 20 unit subcut DAILY 10/30/22 02/27/25 History mL) subcutaneous pen (Lantus Solostar U-100 Insulin) ipratropium 0.5 mg-albuterol 3 mg 3 ml inhalation Q6H 10/30/22 02/27/25 History (2.5 mg base)/3 mL nebulization soln ipratropium bromide 0.02 % 0.5 mg inhalation Q6H PRN 10/30/22 02/27/25 History solution for inhalation shortness of breath or wheezing levomilnacipran 120 mg capsule,24 120 mg PO DAILY 10/30/22 02/27/25 History hr,extended release (Fetzima) levothyroxine 50 mcg capsule 50 mcg PO DAILY 10/30/22 02/27/25 History magnesium oxide 500 mg PO DAILY 10/30/22 02/27/25 History mirtazapine 30 mg tablet 30 mg PO DAILY 10/30/22 02/27/25 History montelukast 10 mg tablet 10 mg PO DAILY 10/30/22 02/27/25 History (Singulair) omeprazole 40 mg capsule,delayed 40 mg PO DAILY 10/30/22 02/27/25 History release oxybutynin chloride 10 mg 10 mg PO DAILY 10/30/22 02/27/25 History tablet,extended release 24 hr sucralfate 1 gram tablet 1 g PO TID 10/30/22 02/27/25 History theophylline 200 mg 200 mg PO DAILY 10/30/22 02/27/25 History capsule,extended release 24 hr (Nishant-24) tizanidine 4 mg capsule (Zanaflex) 4 mg PO BID PRN muscle spasticity 10/30/22 02/27/25 History naloxone 4 mg/actuation nasal 4 mg intranasal Q3M PRN opioid 03/04/24 02/27/25 Rx spray (Narcan) overdose #2 ea gabapentin 600 mg tablet See Rx Instructions .Route 03/21/24 02/27/25 Rx .COMPLEX #120 tabs gabapentin 600 mg tablet See Rx Instructions .Route 05/11/24 02/27/25 Rx .COMPLEX #120 tabs lenalidomide 25 mg capsule 25 mg PO DAILY 11/21/24 02/27/25 History (Revlimid) Held on 02/27/25. Instructions: Order Change hydrocodone 5 mg-acetaminophen 325 1 tab PO Q8H PRN pain #90 tabs 12/13/24 02/27/25 Rx mg tablet tizanidine 4 mg capsule (Zanaflex) 4 mg PO BID PRN muscle spasticity 12/26/24 02/27/25 Rx #60 caps hydrocodone 5 mg-acetaminophen 325 1 tab PO TID PRN pain #90 tabs 02/09/25 02/27/25 Rx mg tablet potassium chloride 10 mEq 10 meq PO DAILY 02/27/25 02/27/25 History tablet,extended release(part/cryst) (Klor-Con M) gabapentin 600 mg tablet See Rx Instructions .Route 03/01/25 Rx .COMPLEX #120 tabs hydrocodone 5 mg-acetaminophen 325 1 tab PO TID PRN pain #90 tabs 03/13/25 Rx mg tablet Allergies Allergy/AdvReac Type Severity Reaction Status Date / Time honey Allergy Severe Anaphylaxis Verified 02/27/25 07:52 codeine Allergy Mild itching Verified 02/27/25 07:52 morphine AdvReac Vomiting Verified 02/27/25 07:52 Exam Constitutional Documenting provider has reviewed patient's vital signs: yes Common normals: no apparent distress, oriented x3 and alert General appearance: cooperative Nutritional appearance: obese HENMT Common normals: normocephalic, hearing grossly normal bilaterally and moist oral mucous membranes Head and scalp: normocephalic Eye Common normals: PERRL Pupil: PERRL Neck & C-Spine Common normals: full ROM General: normal visual inspection Chest Common normals: inspection of chest normal Respiratory Common normals: normal respiratory effort, no retractions and no use of accessory muscles Other: chronic O2, on 4L NC without SOB Back & Pelvis Lumbar spine/lower back: ROM limited, pain with ROM and lumbar spinal tenderness Other: positive facet loading L3-5 strength 5/5 in BLE Extremity Other: LLE non pitting edema no redness warmth or discoloration, scarring to left miramontes Neuro Common normals: oriented x3 Sensorium/orientation: alert Gait (neuro): antalgic and assistive device used walker Psych Common normals: mental status grossly normal, thought process normal, cooperative, affect normal, speech normal and activity/motor behavior normal Speech: normal speech Thought process: normal thought process Results Additional Findings Additional findings: If on a controlled substance or opioids, I have checked an [place] report on this patient and there are no aberrancies noted in the prescribing history.??If on a controlled substance or opioid a drug screen was completed and reviewed within the last year, and if there has not been a drug screen completed we ordered one today to monitor higher risk, state monitored pain medication use. As part of providing excellent, safe, comprehensive care, the following was completed at our patient's visit: 1. A medication reconciliation and review to ensure accurate knowledge of current/active medications, including asking our patients to inform us about any [id number] medications or herbal remedies/nutritional supplements/alternative remedies. 2. A review to specifically ensure our patients have had annual screening for screening for depression, screening for tobacco use, and screening for unhealthy alcohol use. For concerning screenings had a discussion with the patient, provided patient education, and recommended follow-up with primary care provider when appropriate. If patient noted with a risk of falling, they received education on strength, gait, and balance training to prevent future risk of falling. Portions of this note may have been carried over from the previous visit and updated as appropriate. Please note this office utilizes paper charting in addition to the electronic medical record. A list of current medications, vitals, and PMH is available there as the clinical staff outside of myself do not have access to [employer] charting during the clinic day operations. As part of providing quality comprehensive care the current medications, vitals, and PMH were reviewed in the paper chart. Assessment and Plan Assessment and Plan (1) Lumbar radiculopathy: (2) Lumbar stenosis with neurogenic claudication: (3) Sacroiliitis: (4) Encounter for long-term use of opiate analgesic: Assessment and Plan: I feel these medications are improving the patient's quality of life and allow them to tolerate activities of daily living as well as participate in recreational activity.? The patient does not report intolerable side effects. The patient is NOT opioid naive and non-pharmacologic and non-opioid treatment has failed to significantly relieve the patient's pain and improve functionality. The patient has a diagnosis that is related to a somatic or visceral pain etiology. ? ?? I reviewed with the patient the potential risks and side effects with the use of? opioid medications including but not limited to respiratory depression,? sedation, and even . Within the last 12 months I have verified the patient has access to naloxone should? these effects occur. The patient was advised to let? their family know they had Naloxone in case they would need to administer? the medication. I advised the patient to avoid the use of any other? sedation substances including alcohol, THC, and benzodiazepines while? taking opioid medications due to the risk of compounding side effects and? detrimental outcomes. within the last 12 months I have reviewed the [employer], pain treatment agreement and urine drug screen.? ?? A drug screen was completed within the last year, and no aberrancies were noted regarding their use of controlled substances. The patient understands they are subject to the terms and conditions of the pain contract that they have signed. ? ?? I have checked an [place]AR[place] report on this patient today and there are no aberrancies noted in the prescribing history.? pt notes moderate relief for 3-4 hours with each dose, denies constipation nausea itching vomiting Plan The patient has had over 3 months of moderate to severe low back and left leg pain with functional impairment and inadequate response to conservative care including NSAIDS (unless there are contraindication such as concurrent blood thinners), multiple oral or topical pain medications, and home exercise program/physical therapy.? Patient has completed >6 weeks of guided home exercise program and/or formal physical therapy program without relief of their symptoms.? I have reviewed the imaging of the lumbar spine and no red flags were identified.? The imaging reveals radiographic findings consistent with lumbar spondylosis, lumbar stenosis, lumbar ddd The Oswestry Disability Index was completed, and the patient scored a 40%.? repeat left L4-5 L5-S1 TFESI providing moderate ongoing relief defer scs trial/workup due to ongoing cancer treatments continue gabapentin 600mg mid day 900mg hs, tizanidine 4mg bid prn pain/spasms, norco 5-325mg tid prn moderate to severe pain, and duloxetine 60mg daily defer lumbar MBBs/RFA workup at this time as pain is fairly well controlled with current medication regimen and interventions f/u 3 months, sooner if needed
== END 2025-03-16 09:32 | disposition home or self-care (01) ==
LOC: PM 09:31
PROVIDERS: Visit Provider Nurse Practitioner
DX: M54.16 Radiculopathy, lumbar region (principal); M48.062 Spinal stenosis, lumbar region with neurogenic claudication; M46.1 Sacroiliitis, not elsewhere classified; Z79.891 Long term (current) use of opiate analgesic
CPT/HCPCS: G0463